=== PATIENT | male | born 1955 | race Caucasian/White ===

== ENCOUNTER 2023-03-26 12:54 | Outpatient (OUT) | payer MEDICARE, MEDICAID, SELFPAY ==
--- NOTE | 2023-03-26 13:14 | XR_ITS ---
[address] [address] Patient Name: EVELIN CAMACHO MRN: [id number] date: 1955 Sex: M Assigned Patient Location: LAB Current Patient Location: LAB Accession/Order Number: [id number] Exam Date: 03/26/2023 13:40 Report Date: 03/26/2023 22:18 At the request of: KEILY FREEMAN Procedure: XR knee RT 3V PROCEDURE: XR knee RT 3V COMPARISON: None. HISTORY: Primary Osteoarthritis Of Right Knee M17.11 FINDINGS: BONES:No fracture, acute abnormality, or significant arthropathy. Mild narrowing of the lateral joint space SOFT TISSUES:Negative. No visible soft tissue swelling. EFFUSION:None visible. OTHER: Scattered calcifications XR/XR knee RT 3V IMPRESSION: Mild narrowing of the lateral joint space Electronically authenticated by: ROSELIA CARRILLO Date: 03/26/2023 22:18
[2023-03-26 15:16] LABS: Estimated Average Glucose 143 mg/dL; Glycohemoglobin A1C 6.6 % (4.5-6.2)
== END 2023-03-26 12:55 | disposition home or self-care (01) ==
LOC: LAB 12:59
PROVIDERS: PCP Family Medicine; Visit Provider Family Medicine
DX: M17.11 Unilateral primary osteoarthritis, right knee (principal); E11.65 Type 2 diabetes mellitus with hyperglycemia; Z79.4 Long term (current) use of insulin
CPT/HCPCS: 36415; 73562; 83036

== ENCOUNTER 2023-07-16 11:32 | Inpatient (IN) | payer MEDICARE, MEDICAID, SELFPAY ==
[2023-07-16] VITALS (26 sets, daily range): BP systolic 134–177; BP diastolic 61–90; PULSE 68–122; RESP 20–30; TEMP 36.4–38.6; O2SAT 90–97; BMI 45.9; BMI 45.6
--- NOTE | 2023-07-16 11:55 | ECG_ITS ---
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
--- NOTE | 2023-07-16 11:56 | XR_ITS ---
The [address] [address] Patient Name: EVELIN CAMACHO MRN: [id number] date: 1955 Sex: M Assigned Patient Location: ER Current Patient Location: ER Accession/Order Number: [id number] Exam Date: 07/16/2023 12:21 Report Date: 07/16/2023 12:51 At the request of: KAYLIE THORNE Procedure: XR chest 1V EXAMINATION: XR chest 1V HISTORY: spb COMPARISON: No relevant comparison available. TECHNIQUE: AP portable erect FINDINGS: LUNGS: Low lung volumes. Bibasilar infiltrates with obscuration of the left hemidiaphragm. VASCULATURE: Mildly increased pulmonary vasculature. PLEURA: No pneumothorax, effusion, or pleural thickening. CARDIAC: No cardiomegaly or cardiac silhouette abnormality. MEDIASTINUM: No visible mass or adenopathy. BONES: No fracture or visible bone lesion. OTHER: Negative. XR/XR chest 1V IMPRESSION: Bibasilar infiltrates with pulmonary vascular congestion, consider pulmonary edema Electronically authenticated by: ROSELIA CARRILLO Date: 07/16/2023 12:51
[2023-07-16] MEDS: 0.9 % SODIUM CHLORIDE 1,000 ML 1000 ML IV (12:14)
[2023-07-16 12:23] LABS: SARS-CoV-2 Ag NEGATIVE (NEGATIVE)
[2023-07-16 12:26] LABS: Basophils Absolute Auto 0.1 10^3/uL (0.0-0.1); Basophils Percent Auto 0.6 % (0.2-2.0); Eosinophils Absolute Auto 0.2 10^3/uL (0.0-0.7); Eosinophils Percent Auto 1.8 % (0.9-7.0); Hematocrit 32.9 % (42.0-54.0); Hemoglobin 10.4 g/dL (14.0-18.0); Immature Granulocytes Abs Auto 0.07 10^3/uL (0.00-0.03); Immature Granulocytes Pct Auto 0.7 % (0.0-0.5); Lymphocytes Absolute Auto 1.2 10^3/uL (1.2-3.8); Lymphocytes Percent Auto 10.9 % (20.5-60.0); Mean Corpuscular HGB Conc 31.6 g/dL (29.9-35.2); Mean Corpuscular Hemoglobin 28.5 pg (25.9-34.0); Mean Corpuscular Volume 90.1 fL (80.0-94.0); Monocytes Absolute Auto 0.9 10^3/uL (0.3-0.8); Monocytes Percent Auto 8.7 % (1.7-12.0); Neutrophils Absolute Auto 8.1 10^3/uL (1.4-6.5); Neutrophils Percent Auto 77.3 % (43.0-75.0); Platelet Count 221 10^3/uL (150-450); Red Blood Count 3.65 10^6/uL (4.70-6.10); Red Cell Distribution Width 14.6 % (11.0-15.0); White Blood Count 10.5 10^3/uL (4.0-11.0)
[2023-07-16 12:28] LABS: Magnesium 1.2 mg/dL (1.8-2.4)
--- NOTE | 2023-07-16 12:36 | CT_ITS ---
[address] [address] Patient Name: EVELIN CAMACHO MRN: [id number] date: 1955 Sex: M Assigned Patient Location: ER Current Patient Location: ER Accession/Order Number: [id number] Exam Date: 07/16/2023 13:15 Report Date: 07/16/2023 14:02 At the request of: KAYLIE THORNE Procedure: CT abdomen pelvis wo con EXAMINATION: CT abdomen pelvis wo con HISTORY: 67 years old Male with left LQ abd pain. COMPARISON: TECHNIQUE: CT examination of the abdomen, and pelvis without the administration of intravenous contrast. Coronal and sagittal reformations were performed. Dose reduction techniques were achieved by using automated exposure control and/or adjustment of mA and/or kV according to patient size and/or use of iterative reconstruction technique. FINDINGS: Without the use of IV or oral contrast the study is limited by incomplete evaluation of the blood vessels, solid visceral organs and bowel. There is partial consolidation and groundglass attenuation of the right lung base. The liver appears normal. The gallbladder is surgically absent. The spleen, pancreas and bilateral adrenal glands are unremarkable. The kidneys are mildly atrophic. There is no hydronephrosis or renal calculus. Small umbilical hernia containing fat is identified. Bilateral inguinal hernias containing fat are noted. The colon is unremarkable. The stomach and small bowel are unremarkable. No pneumoperitoneum or ascites are identified. There is scattered calcified atherosclerotic disease of the aorta. No enlarged lymph nodes are seen. No free air or free fluid is seen. Osseous structures are intact. CT/CT abdomen pelvis wo con IMPRESSION: Bilateral inguinal hernias containing fat. Small umbilical hernia containing fat. No bowel obstruction or pneumoperitoneum. Normal-appearing appendix. Right basilar atelectasis and/or pneumonia. Mildly atrophic kidneys, bilaterally. Electronically authenticated by: MASON MASTERS Date: 07/16/2023 14:02
[2023-07-16 12:37] LABS: INR 0.97; Prothrombin Time 10.3 sec (9.0-11.6)
--- NOTE | 2023-07-16 12:37 | CT_ITS ---
[address] [address] Patient Name: EVELIN CAMACHO MRN: [id number] date: 1955 Sex: M Assigned Patient Location: ER Current Patient Location: ER Accession/Order Number: [id number] Exam Date: 07/16/2023 13:15 Report Date: 07/16/2023 14:13 At the request of: KAYLIE THORNE Procedure: CT chest wo con EXAM: CT chest wo con HISTORY: sob COMPARISON: 01/23/2022 TECHNIQUE: Axial CT imaging was performed through the chest without intravenous contrast. Multiplanar reformats were performed. Dose reduction techniques were achieved by using automated exposure control and/or adjustment of mA and/or kV according to patient size and/or use of iterative reconstruction technique. FINDINGS: Lungs: No pneumothorax. Patchy consolidations of right lower lobe, representing pneumonia/aspiration pneumonia. Airways: Normal. Mediastinum: No adenopathy. Aorta: No aneurysm. Cardiac: Normal size. No pericardial effusion. Pulmonary vasculature: Normal morphology. Bones: No acute bony abnormality. Axilla: No adenopathy. Thyroid gland: No abnormality demonstrated on provided imaging. Soft tissues: Unremarkable. Upper abdomen: Unremarkable. Other findings: None. CT/CT chest wo con IMPRESSION: Patchy consolidations of right lower lobe, representing pneumonia/aspiration pneumonia. Electronically authenticated by: MATIAS ESTEBAN Date: 07/16/2023 14:13
[2023-07-16 12:38] LABS: Alanine Aminotransferase 23 U/L (16-63); Albumin Globulin Ratio 0.3; Albumin Level 1.8 g/dL (3.4-5.0); Alkaline Phosphatase 165 U/L (46-116); Anion Gap 13.7; Aspartate Amino Transferase 40 U/L (15-37); BUN Creatinine Ratio 12.9; Bilirubin Total 0.7 mg/dL (0.2-1.0); Chloride 98 mmol/L (98-107); Estimated GFR (African America 49 (>=60); Estimated GFR (Non-African Ame 41 (>=60); Globulin 6.2 g/dL; Glucose 181 mg/dL (74-106); Sodium 135 mmol/L (136-145); Troponin I High Sensitivity 11.9 pg/mL (4.0-76.1)
[2023-07-16 12:40] LABS: Potassium 2.7 mmol/L (3.5-5.1)
[2023-07-16 13:25] LABS: Bilirubin Urine NEGATIVE (NEGATIVE); Blood Urine LARGE (NEGATIVE); Clarity Urine CLEAR (CLEAR); Color Urine YELLOW (YELLOW); Glucose Urine UA 100 mg/dL (NEGATIVE); Ketones Urine NEGATIVE (NEGATIVE); Leukocyte Esterase Urine NEGATIVE (NEGATIVE); Nitrite Urine NEGATIVE (NEGATIVE); Protein Urine 100 mg/dL (NEG/TRACE); Specific Gravity Urine 1.025 (1.005-1.025); Urine Microscopic Indicated YES
[2023-07-16] MEDS: POTASSIUM CHLORIDE IN WATER 10 MEQ/100 ML PIGGYBACK 100 MEQ IV (13:30)
--- NOTE | 2023-07-16 13:36 | ED_ITS ---
HPI - Weakness General Chief complaint: Weakness Stated complaint: GENERAL WEAKNESS Time Seen by Provider: 07/16/23 11:55 Source: patient Mode of arrival: ambulance Limitations: no limitations History of Present Illness HPI Narrative: Patient presented to the ER with 1 week history of nausea vomiting and diarrhea as well as cough productive of whitish sputum The patient coming to us today with an increase of shortness of breath and cough over the last few days , he also had fever and chills in addition to nausea and vomiting and not able to tolerate anything p.o. The patient also complaining of left lower quadrant pain he mentioned having history of diverticulosis, he has been having frequent bowel movements Related Data Home Medications Medication Instructions Recorded Confirmed atorvastatin 40 mg tablet 40 mg PO BEDTIME 07/16/23 07/16/23 cefdinir 300 mg capsule 300 mg PO BID 07/16/23 07/16/23 esomeprazole magnesium 40 mg 40 mg PO Q24H 07/16/23 07/16/23 capsule,delayed release gabapentin 100 mg capsule 100 mg PO BID 07/16/23 07/16/23 hydroxyzine HCl 25 mg tablet 25 mg PO QID PRN nausea and 07/16/23 07/16/23 vomiting insulin glargine 100 unit/mL (3 40 unit subcut DAILY 07/16/23 07/16/23 mL) subcutaneous pen (Lantus Solostar U-100 Insulin) isosorbide mononitrate 30 mg 30 mg PO DAILY 07/16/23 07/16/23 tablet,extended release 24 hr levothyroxine 200 mcg tablet 200 mcg PO DAILY 07/16/23 07/16/23 liothyronine 5 mcg tablet 5 mcg PO DAILY 07/16/23 07/16/23 lisinopril 40 mg tablet 40 mg PO DAILY 07/16/23 07/16/23 oxycodone-acetaminophen 5 mg-325 1 tab PO QID PRN pain 07/16/23 07/16/23 mg tablet ropinirole 0.5 mg tablet 0.5 mg PO BEDTIME 07/16/23 07/16/23 sertraline 100 mg tablet 100 mg PO DAILY 07/16/23 07/16/23 Allergies Allergy/AdvReac Type Severity Reaction Status Date / Time metformin AdvReac Severe Flatulence Verified 07/16/23 11:43 prochlorperazine AdvReac Severe Verified 07/16/23 11:43 [From Compazine] Review of Systems ROS Status of ROS 10 or more systems reviewed and unremark able except as noted in history and below PFSH PFS Social History Smoking status: Never smoker Exam Narrative Exam Narrative: Nurses notes and vital signs reviewed and patient is not hypoxic. General: Well-appearing and in no apparent distress. Skin: Warm, dry, no pallor noted. No rash. Head: Normocephalic, atraumatic. Neck: Supple, non-tender. Eye: Pupils are equal, round and EOMI. No scleral icterus. Ears, Nose, Mouth, and Throat: TM are clear, no nasal mucosal hypertrophy. Oral mucosa is moist, no posterior oropharynx erythema, uvula is mid-line Cardiovascular: Regular Rate and Rhythm without murmur, gallop or rub. Respiratory: Decreased air entry in the bases as well as rhonchi in the upper lung carrion Lungs are clear to auscultation, no wheezing, rales or rhonchi Chest Wall: no tenderness Back: No midline thoracic or lumbar vertebral tenderness. No CVA tenderness Musculoskeletal: normal ROM, no calf or popliteal tenderness, no lower extremity edema/swelling GI: Abdomen is soft, non-distended. Normal bowel sounds. No masses appreciated. Left lower quadrant tenderness on examination although it was on superficial examination ,no rebound, guarding, or rigidity noted. Neurological: A&O x4. No cranial nerve dysfunction observed. No truncal ataxia. Moves all extremities. Sensation intact. Psychiatric: Cooperative and interactive. Normal mood and affect. Constitutional Vital Signs, click to edit/add: Last Vital Signs Temp 100.4 F 07/16/23 14:43 Pulse 81 07/16/23 12:30 Resp 26 H 07/16/23 12:30 BP 135/72 07/16/23 11:39 Pulse Ox 97 07/16/23 13:00 O2 Del Method Nasal Cannula 07/16/23 12:44 O2 Flow Rate 2 07/16/23 12:44 Course Vital Signs Vital signs: Vital Signs Temperature 101.4 F H 07/16/23 11:39 Pulse Rate 74 07/16/23 11:39 Respiratory Rate 24 07/16/23 11:39 Blood Pressure 135/72 07/16/23 11:39 Pulse Oximetry 95 07/16/23 11:39 Oxygen Delivery Method Room Air 07/16/23 11:39 Temperature 100.4 F 07/16/23 14:43 Pulse Rate 81 07/16/23 12:30 Respiratory Rate 26 H 07/16/23 12:30 Blood Pressure 135/72 07/16/23 11:39 Pulse Oximetry 97 07/16/23 13:00 Oxygen Delivery Method Nasal Cannula 07/16/23 12:44 Oxygen Delivery Flow Rate 2 07/16/23 12:44 MDM - Weakness MDM Narrative Medical decision making narrative: The patient EKG shows sinus arrhythmia with multiple PVCs although the patient does have history of A-fib , but I can recognize P waves in multiple beats The patient CBC shows no acute significant pathology but his potassium is 2.7 and magnesium is 1.2 the patient was started on IV potassium and magnesium The patient also provided with p.o. potassium after making sure that the CAT scan of the abdomen showed no acute significant pathology CAT scan of the chest confirmed the diagnosis of the pneumonia and the patient was started on ceftriaxone and azithromycin Please consider any QT prolonging effect of azithromycin especially that the patient taking hydroxyzine with it The patient pulse ox only drops when the patient coughs to 89% to 88% and that why he is on 2 L nasal cannula saturating right now 97% Right now the patient will be admitted for further management of his gastroenteritis as well as pneumonia The patient case was discussed with Dr. Chicas and he agrees on the above mentioned plan Lab Data Labs: Lab Results 07/16/23 07/16/23 07/16/23 Range/Units 11:50 12:13 13:10 WBC 10.5 (4.0-11.0) 10^3/uL RBC 3.65 L (4.70-6.10) 10^6/uL Hgb 10.4 L (14.0-18.0) g/dL Hct 32.9 L (42.0-54.0) % MCV 90.1 (80.0-94.0) fL MCH 28.5 (25.9-34.0) pg MCHC 31.6 (29.9-35.2) g/dL RDW 14.6 (11.0-15.0) % Plt Count 221 (150-450) 10^3/uL MPV 11.0 (9.5-13.5) fL Neut % (Auto) 77.3 H (43.0-75.0) % Lymph % (Auto) 10.9 L (20.5-60.0) % [place] % (Auto) 8.7 (1.7-12.0) % Eos % (Auto) 1.8 (0.9-7.0) % Baso % (Auto) 0.6 (0.2-2.0) % Neut # (Auto) 8.1 H (1.4-6.5) 10^3/uL Lymph # (Auto) 1.2 (1.2-3.8) 10^3/uL [place] # (Auto) 0.9 H (0.3-0.8) 10^3/uL Eos # (Auto) 0.2 (0.0-0.7) 10^3/uL Baso # (Auto) 0.1 (0.0-0.1) 10^3/uL Abs Immat Gran (auto) 0.07 H (0.00-0.03) 10^3/uL Imm/Tot Granulo (auto) 0.7 H (0.0-0.5) % PT 10.3 (9.0-11.6) sec INR 0.97 Sodium 135 L (136-145) mmol/L Potassium 2.7 L* (3.5-5.1) mmol/L Chloride 98 (98-107) mmol/L Carbon Dioxide 26.0 (21.0-32.0) mmol/L Anion Gap 13.7 BUN 22.0 H (7.0-18.0) mg/dL Creatinine 1.70 H (0.70-1.30) mg/dL Est GFR ( Amer) 49 L (>=60) Est GFR (Non-Af Amer) 41 L (>=60) BUN/Creatinine Ratio 12.9 Glucose 181 H (74-106) mg/dL Lactate 2.0 (0.4-2.0) mmol/L Calcium 8.0 L (8.5-10.1) mg/dL Magnesium 1.2 L (1.8-2.4) mg/dL Total Bilirubin 0.7 (0.2-1.0) mg/dL AST 40 H (15-37) U/L ALT 23 (16-63) U/L Alkaline Phosphatase 165 H (46-116) U/L Troponin I High Sens 11.9 (4.0-76.1) pg/mL Total Protein 8.0 (6.4-8.2) g/dL Albumin 1.8 L (3.4-5.0) g/dL Globulin 6.2 g/dL Albumin/Globulin Ratio 0.3 Urine Color Yellow (YELLOW) Urine Clarity Clear (CLEAR) Urine pH 6.0 (5.0-9.0) Ur Specific [place] 1.025 (1.005-1.025) Urine Protein 100 A (NEG/TRACE) mg/dL Urine Glucose (UA) 100 A (NEGATIVE) mg/dL Urine Ketones Negative (NEGATIVE) mg/dL Urine Occult Blood Large A (NEGATIVE) Urine Nitrite Negative (NEGATIVE) Urine Bilirubin Negative (NEGATIVE) Urine Urobilinogen 1.0 (0.2-1.0) EU/dL Ur Leukocyte Esterase Negative (NEGATIVE) Urine RBC 20-50 A (0-2) #/HPF Urine WBC 2-5 A (NONE SEEN) #/HPF Ur Squamous Epith Cells Rare (NONE/RARE) #/LPF Urine Crystals Seen A (None Seen) #/HPF Amorphous Sediment Rare Urine Bacteria Trace A (NONE SEEN) #/HPF Urine Casts Seen A (NONE SEEN) #/LPF Fine Granular Casts Rare Urine Mucus None seen (NONE SEEN) Ur Culture Indicated? No SARS-CoV-2 (PCR) Negative (NEGATIVE) Discharge Plan Discharge Chief Complaint: Weakness Clinical Impression: Acute kidney injury, Gastroenteritis, Acute hypokalemia, Hypomagnesemia Pneumonia Qualifiers: Pneumonia type: due to unspecified organism Laterality: right Lung location: lower lobe of lung Qualified Code(s): J18.9 - Pneumonia, unspecified organism Patient Disposition: Admitted As Inpatient Time of Disposition Decision: 14:33 Condition: Fair
[2023-07-16 13:38] LABS: Amorphous Sediment Urine RARE; Bacteria Urine TRACE #/HPF (NONE SEEN); Cast Seen? SEEN #/LPF (NONE SEEN); Crystals Seen? Seen #/HPF (None Seen); Mucus Urine NONE SEEN (NONE SEEN); RBC Urine 20-50 #/HPF (0-2); Squamous Epithelial Cell Urine RARE #/LPF (NONE/RARE)
[2023-07-16 13:39] LABS: Fine Granular Casts Urine RARE; Urine Culture Indicated NO
[2023-07-16] MEDS: MAGNESIUM SULFATE IN WATER 2 GM/50 ML PREMIX IV ×2 (14:26→18:29)
[2023-07-16] MEDS: CEFTRIAXONE 1,000 MG in 0.9 % SODIUM CHLORIDE 50 ML 100 MG IV (14:56)
[2023-07-16 15:07] LABS: Lactate/Lactic Acid 1.3 mmol/L (0.4-2.0)
[2023-07-16 15:09] LABS: SARS-CoV-2 NAA NOT DETECTED (NOT DETECTE)
[2023-07-16] MEDS: AZITHROMYCIN 500 MG in 0.9 % SODIUM CHLORIDE 250 ML 250 MG IV (15:30)
[2023-07-16 16:19] LABS: Glucometer 128 mg/dL (74-106)
[2023-07-16 16:27] LABS: Adenovirus NOT DETECTED (NOT DETECTE); Bordetella parapertussis NOT DETECTED (NOT DETECTE); Coronavirus 229E NOT DETECTED (NOT DETECTE); Coronavirus HKU1 NOT DETECTED (NOT DETECTE); Coronavirus NL63 NOT DETECTED (NOT DETECTE); Coronavirus OC43 NOT DETECTED (NOT DETECTE); Human Metapneumovirus NOT DETECTED (NOT DETECTE); Human Rhinovirus/Enterovirus NOT DETECTED (NOT DETECTE); Influenza A NOT DETECTED (NOT DETECTE); Influenza B NOT DETECTED (NOT DETECTE); Mycoplasma pneumoniae NOT DETECTED (NOT DETECTE); Parainfluenza Virus 1 NOT DETECTED (NOT DETECTE); Parainfluenza Virus 2 NOT DETECTED (NOT DETECTE); Parainfluenza Virus 3 NOT DETECTED (NOT DETECTE); Parainfluenza Virus 4 NOT DETECTED (NOT DETECTE); Respiratory Syncytial Virus NOT DETECTED (NOT DETECTE); SARS-CoV-2 NOT DETECTED (NOT DETECTE)
--- NOTE | 2023-07-16 16:31 | P.HP_ITS ---
H&P: HPI History of Present Illness Chief complaint: GENERAL WEAKNESS, PNEUMONIA,HYPOKALEMIA Narrative: 07/16/23 3485 This is a 67-year-old male patient with a past medical history as outlined below including DM 2, morbid obesity, HTN, HL P, fibromyalgia, and depression; who presented to the ED complaining approximately 10 days of URI symptoms with severe cough, shortness of breath, body aches, and diarrhea starting on . He reports severe shortness of breath and near syncope with coughing episodes that then led to dry heaves but no actual nausea or emesis. He reports the diarrhea continued intermittently for the last 10 days and was very watery and at times uncontrolled and he was incontinent. He reports subjective fevers and chills over the last several days. He denies abdominal pain, chest pain, significant headache, dizziness, or nausea. Work-up in the ED revealed fever (101.4), no leukocytosis but significant electrolyte derangements (K+ 2.7, mag 1.2), and mild CURLY on chronic CKD3a. A COVID swab was negative. Chest x-ray was concerning for bilateral lobe infiltrate and possible vascular congestion. A follow-up CT of the chest revealed right lower lobe patchy consolidations consistent with pneumonia or aspiration pneumonia. CT of the abdomen was unremarkable. He is being admitted to the hospitalist service for left lower lobe pneumonia, acute gastroenteritis, electrolyte derangements, acute respiratory failure. At the time of my exam the patient is resting in bed. He is not in significant respiratory distress and can speak in complete sentences. His left eye is injected and painful with some drainage noted. He has an infrequent nonproductive cough during my exam. He does note episodic prolonged coughing spells that produce severe shortness of breath and near syncope. Review of Systems ROS Status of ROS 10 or more systems reviewed and unremark able except as noted in history and below [facility] Medical History (Updated 07/16/23 @ 17:03 by Maria Victoria Mobley NP) GERD (gastroesophageal reflux disease) ?K21.9 - Gastro-esophageal reflux disease without esophagitis (ICD-10) UTI (urinary tract infection) ?N39.0 - Urinary tract infection, site not specified (ICD-10) Sepsis ?A41.9 - Sepsis, unspecified organism (ICD-10) Fibromyalgia ?M79.7 - Fibromyalgia (ICD-10) Hyperlipidemia ?E78.5 - Hyperlipidemia, unspecified (ICD-10) Hypothyroid ?E03.9 - Hypothyroidism, unspecified (ICD-10) Depression ?F32.A - Depression, unspecified (ICD-10) Anxiety ?F41.9 - Anxiety disorder, unspecified (ICD-10) Hypertension ?I10 - Essential (primary) hypertension (ICD-10) Diabetes ?E11.9 - Type 2 diabetes mellitus without complications (ICD-10) Surgical History (Updated 07/16/23 @ 16:09 by María Elena Neal) H/O right heart catheterization ?Z98.890 - Other specified postprocedural states (ICD-10) History of lithotripsy ?Z98.890 - Other specified postprocedural states (ICD-10) H/O colonoscopy ?Z98.890 - Other specified postprocedural states (ICD-10) Family History (Updated 07/16/23 @ 16:10 by María Elena Neal) Mother Family history of cancer Social History (Updated 07/16/23 @ 16:11 by María Elena Neal) Within the past year, how often did you have a drink containing alcohol: never Within the past year, how many standard drinks containing alcohol did you have on a typical day: 1 or 2 Within the past year, how often did you have six or more drinks on one occasion: never Total score: 0 Score interpretation: A score less than 4 is consistent with normal alcohol consumption. Smoking status: Never smoker Non-prescribed substance use: denies use Previous occupational history: disability Highest level of school completed/degree received: high school graduate Are you now , , , , never or living with a partner: In a typical week, how many times do you talk on the telephone with family, friends, or neighbors: twice per week How often do you get together with friends or relatives: twice per week How often do you attend protestant or rastafari services: 4 or more times per year Do you belong to any clubs or organizations such as protestant groups unions, fraternal or athletic groups, or school groups: no Total score: 2 Score interpretation: A score of greater than or equal to 2 indicates the lowest level of social isolation. Little interest or pleasure in doing things: not at all Feeling down, depressed, or hopeless: several days Feel stressed/tense/nervous/anxious/difficulty sleeping: not at all Gender Identity: male Meds Home Medications and Allergies Home Medications Medication Instructions Recorded Confirmed Type atorvastatin 40 mg tablet 40 mg PO BEDTIME 07/16/23 07/16/23 History cefdinir 300 mg capsule 300 mg PO BID 07/16/23 07/16/23 History esomeprazole magnesium 40 mg 40 mg PO Q24H 07/16/23 07/16/23 History capsule,delayed release gabapentin 100 mg capsule 100 mg PO BID 07/16/23 07/16/23 History hydroxyzine HCl 25 mg tablet 25 mg PO QID PRN nausea and 07/16/23 07/16/23 History vomiting insulin glargine 100 unit/mL (3 40 unit subcut DAILY 07/16/23 07/16/23 History mL) subcutaneous pen (Lantus Solostar U-100 Insulin) isosorbide mononitrate 30 mg 30 mg PO DAILY 07/16/23 07/16/23 History tablet,extended release 24 hr levothyroxine 200 mcg tablet 200 mcg PO DAILY 07/16/23 07/16/23 History liothyronine 5 mcg tablet 5 mcg PO DAILY 07/16/23 07/16/23 History lisinopril 40 mg tablet 40 mg PO DAILY 07/16/23 07/16/23 History oxycodone-acetaminophen 5 mg-325 1 tab PO QID PRN pain 07/16/23 07/16/23 History mg tablet ropinirole 0.5 mg tablet 0.5 mg PO BEDTIME 07/16/23 07/16/23 History sertraline 100 mg tablet 100 mg PO DAILY 07/16/23 07/16/23 History Allergies Allergy/AdvReac Type Severity Reaction Status Date / Time metformin AdvReac Severe Flatulence Verified 07/16/23 11:43 prochlorperazine AdvReac Severe Verified 07/16/23 11:43 [From Compazine] Exam Constitutional Vital Signs, click to edit/add: Last Vital Signs Temp 98.7 F 07/16/23 16:13 Pulse 68 07/16/23 16:13 Resp 20 07/16/23 16:13 BP 177/90 H 07/16/23 16:13 Pulse Ox 95 07/16/23 16:13 O2 Del Method Nasal Cannula 07/16/23 16:13 O2 Flow Rate 2 12/06/23 16:13 Common normals: no apparent distress, oriented x3, alert and well nourished General appearance: cooperative Orientation/consciousness: Yes awake HENCO Common normals: normocephalic, head/scalp atraumatic, hearing grossly normal bilaterally, external nose normal and moist oral mucous membranes Eye Common normals: PERRL, EOMs intact bilaterally and no scleral icterus Alignment: alignment normal Eyelid: eyelids normal Conjunctiva: conjunctiva abnormal left (injected, mild discharge, painful) Neck & C-Spine Common normals: full ROM, supple and no JVD Chest Common normals: inspection of chest normal Chest: symmetrical chest wall rise Respiratory Common normals: normal respiratory effort, no retractions and no use of accessory muscles Effort & inspection: able to speak in complete sentences Auscultation: rhonchi (RLL faint) and wheezes (LLL faint) Cardio Common normals: no JVD, regular rate, regular rhythm, S1 normal heart sound, S2 normal heart sound, no gallops, no clicks, no murmurs, no rub and peripheral pulses 2+ throughout GI Common normals: Normal to inspection, nondistended, normoactive bowel sounds present, soft to palpation, no hepatosplenomegaly, no masses and no bruits Palpation: tender (Mild diffuse abd wall pain from coughing) Bladder/kidney exam: bladder normal to palpation Back & Pelvis Common normals: thoracic and lumbar spine normal to inspection Extremity Common normals: normal capillary refill and no pedal edema General: normal exam except as noted; no clubbing and no cyanosis Neuro Naldo Coma Scale: GCS not evaluated Common normals: CN's II-XII intact bilaterally, moves all extremities and no focal motor deficits Speech: speech normal Sensory exam: other (chronic bilat feet paresthesias) Psych Common normals: mental status grossly normal, thought process normal, affect normal and activity/motor behavior normal Results Labs Labs: Short CBC 07/16/23 Range/Units 12:13 WBC 10.5 (4.0-11.0) 10^3/uL Hgb 10.4 L (14.0-18.0) g/dL Hct 32.9 L (42.0-54.0) % Plt Count 221 (150-450) 10^3/uL BMP 07/16/23 12:13 Sodium 135 L Potassium 2.7 L* Chloride 98 Carbon Dioxide 26.0 BUN 22.0 H Creatinine 1.70 H Glucose 181 H Calcium 8.0 L Liver Function 07/16/23 Range/Units 12:13 Total Bilirubin 0.7 (0.2-1.0) mg/dL AST 40 H (15-37) U/L ALT 23 (16-63) U/L Alkaline Phosphatase 165 H (46-116) U/L Albumin 1.8 L (3.4-5.0) g/dL Urine 07/16/23 Range/Units 13:10 Urine Color Yellow (YELLOW) Urine Clarity Clear (CLEAR) Urine pH 6.0 (5.0-9.0) Ur Specific [place] 1.025 (1.005-1.025) Urine Protein 100 A (NEG/TRACE) mg/dL Urine Glucose (UA) 100 A (NEGATIVE) mg/dL Pulse Oximetry Attestation: I have reviewed the pertinent pulse oximetry results. ECG Attestation: ?I have reviewed the pertinent ECG results. Interpretation: Sinus tachycardia With frequent supraventricular premature complexes With occasional ventricular premature complexes Moderate ST depression Abnormal ECG No previous ECG available for comparison Imaging Chest x-ray: Attestation: I have reviewed the pertinent imaging results. Radiologist's impression: IMPRESSION: Bibasilar infiltrates with pulmonary vascular congestion, consider pulmonary edema CT scan - abdomen: Attestation: I have reviewed the pertinent imaging results. Radiologist's impression: IMPRESSION: Bilateral inguinal hernias containing fat. Small umbilical hernia containing fat. No bowel obstruction or pneumoperitoneum. Normal-appearing appendix. Right basilar atelectasis and/or pneumonia. Mildly atrophic kidneys, bilaterally. CT scan - chest: Attestation: I have reviewed the pertinent imaging results. Radiologist's impression: IMPRESSION: Patchy consolidations of right lower lobe, representing pneumonia/aspiration pneumonia. Assessment and Plan Assessment and Plan (1) Pneumonia: Assessment and Plan: ACUTE * Adm inpatient * Cough/SOB x 10 days, febrile (101.4), LLL consolidation on CT imaging * Suspect viral URI w/ secondary bacterial LLL consolidation * COVID swab neg * check full resp panel * add procalcitonin * IVPB Rocephin and azithromycin * Duoneb TID plus PRN q4h * Scheduled tessalon perles and guaifenisen * O2 to keep sats above 90% * LR at 125/hr * CBC, CMP daily Qualifiers: Laterality: right Lung location: lower lobe of lung Pneumonia type: due to unspecified organism Qualified Code(s): J18.9 - Pneumonia, unspecified organism (2) Acute respiratory failure: Assessment and Plan: ACUTE * Sats drop to 88% w/ coughing * Pt reports near syncope w/ coughing * O2 to keep sats above 90% Qualifiers: Respiratory failure complication: hypoxia Qualified Code(s): J96.01 - Acute respiratory failure with hypoxia (3) Gastroenteritis: Assessment and Plan: ACUTE * Suspected viral illness w/ URI, cough and diarrhea. * No N/V - just gagging, dry heaves with prolonged coughing * Pt reports intermittent watery diarrhea x 10 days * check C-diff * start floranex * Consider loperamide if c-diff is negative * Zofran if nausea occurs (4) Acute hypokalemia: Assessment and Plan: ACUTE * K+ 2.7 in ED * Suspect 2/2 GI losses w/ persistent diarrhea and poor po intake * KCL 50 meq total given in ED * Give additional 40 meq IVPB tonight * Tele monitoring - no concerning EKG changes * Daily CMP to monitor (5) Hypomagnesemia: Assessment and Plan: ACUTE * Mg 1.2 in ED * Suspect 2/2 GI losses w/ persistent diarrhea and poor po intake * Mag sulfate 2gm given in ED * Give addt'l 2gm mag sulfate now * Repeat Mag level in AM (6) Acute kidney injury: Assessment and Plan: ACUTE * Mild * B.L. renal fx: CR 1.29 to 1.59, eGFR 44-56. CKD3a * 2/2 dehydration * IVF as above * Hold renal toxic medications - lisinopril * CMP daily (7) Acute conjunctivitis, left eye: Assessment and Plan: ACUTE * Vigamox gtts TID x 7 days Qualifiers: Acute conjunctivitis type: unspecified Qualified Code(s): H10.32 - Unspecified acute conjunctivitis, left eye (8) Fibromyalgia: Assessment and Plan: CHRONIC * Continue home SSRI, gabapentin, requip (9) Hyperlipidemia: Assessment and Plan: CHRONIC * Continue home statin (10) Hypothyroid: Assessment and Plan: CHRONIC * Continue home levothyroxine, liothyronine * Check TSH in AM for therapeutic monitoring (11) Depression: Assessment and Plan: CHRONIC * Continue home sertraline (12) Hypertension: Assessment and Plan: CHRONIC * Continue home imdur * Hold home lisinopril for now d/t CURLY * PRN IVP Hydralazine (13) Diabetes: Assessment and Plan: CHRONIC * Continue home lantus daily * Med dose SSI for glucose correction * ACHS glucometer checks * Med CC diet (14) GERD (gastroesophageal reflux disease): Assessment and Plan: CHRONIC * Continue home PPI Plan Lovenox for DVT prophylaxis
[2023-07-16] MEDS: POTASSIUM CHLORIDE 10 MEQ ER TABLET 40 MEQ PO (18:28)
[2023-07-16] MEDS: LACTATED RINGER'S SOLUTION 1,000 ML 125 ML IV (18:29)
[2023-07-16] MEDS: IPRATROPIUM/ALBUTEROL SULFATE 3 ML AMPUL.NEB IH (20:14)
[2023-07-16 20:31] LABS: Glucometer 187 mg/dL (74-106)
[2023-07-16] MEDS: POTASSIUM CHLORIDE 40 MEQ in 0.9 % SODIUM CHLORIDE 250 ML 67.5 MEQ IV (20:34)
[2023-07-16] MEDS: ENOXAPARIN SODIUM 30 MG/0.3 ML SYRINGE SUBQ (21:16)
[2023-07-16] MEDS: L. ACIDOPHILUS/L.BULGARICUS 1 PACKET GRAN.PACK PO (21:16)
[2023-07-16] MEDS: ATORVASTATIN CALCIUM 40 MG TABLET PO (21:16)
[2023-07-16] MEDS: GABAPENTIN 100 MG CAPSULE PO (21:16)
[2023-07-16] MEDS: GUAIFENESIN 600 MG TAB.ER.12H PO (21:16)
[2023-07-16] MEDS: ROPINIROLE HCL 0.25 MG TABLET 0.5 MG PO (21:16)
[2023-07-16] MEDS: BENZONATATE 100 MG CAPSULE 200 MG PO (21:16)
[2023-07-16] MEDS: INSULIN ASPART 300 UNIT/3 ML PEN SUBQ (21:17)
[2023-07-16] MEDS: MOXIFLOXACIN HCL 0.5% OP 60 DROP/3 ML BOTTLE OP (21:17)
[2023-07-17] VITALS (19 sets, daily range): BP systolic 141–158; BP diastolic 81–92; PULSE 59–93; RESP 18–24; TEMP 36.5–36.7; O2SAT 92–95
[2023-07-17 04:29] LABS: Basophils Absolute Auto 0.1 10^3/uL (0.0-0.1); Basophils Percent Auto 0.7 % (0.2-2.0); Eosinophils Absolute Auto 0.1 10^3/uL (0.0-0.7); Eosinophils Percent Auto 1.1 % (0.9-7.0); Hematocrit 30.6 % (42.0-54.0); Hemoglobin 9.8 g/dL (14.0-18.0); Immature Granulocytes Abs Auto 0.13 10^3/uL (0.00-0.03); Immature Granulocytes Pct Auto 1.5 % (0.0-0.5); Lymphocytes Absolute Auto 1.3 10^3/uL (1.2-3.8); Lymphocytes Percent Auto 14.6 % (20.5-60.0); Mean Corpuscular Hemoglobin 28.7 pg (25.9-34.0); Mean Corpuscular Volume 89.7 fL (80.0-94.0); Mean Platelet Volume 10.3 fL (9.5-13.5); Monocytes Absolute Auto 0.7 10^3/uL (0.3-0.8); Monocytes Percent Auto 8.4 % (1.7-12.0); Neutrophils Absolute Auto 6.5 10^3/uL (1.4-6.5); Neutrophils Percent Auto 73.7 % (43.0-75.0); Platelet Count 247 10^3/uL (150-450); Red Blood Count 3.41 10^6/uL (4.70-6.10); Red Cell Distribution Width 14.8 % (11.0-15.0); White Blood Count 8.8 10^3/uL (4.0-11.0)
[2023-07-17 04:36] LABS: Magnesium 1.8 mg/dL (1.8-2.4)
[2023-07-17 04:51] LABS: Alanine Aminotransferase 21 U/L (16-63); Albumin Globulin Ratio 0.3; Albumin Level 1.7 g/dL (3.4-5.0); Alkaline Phosphatase 179 U/L (46-116); Anion Gap 12.4; Aspartate Amino Transferase 31 U/L (15-37); Bilirubin Total 0.5 mg/dL (0.2-1.0); Calcium 7.8 mg/dL (8.5-10.1); Carbon Dioxide 26.6 mmol/L (21.0-32.0); Chloride 101 mmol/L (98-107); Estimated GFR (African America >60 (>=60); Estimated GFR (Non-African Ame 52 (>=60); Globulin 5.8 g/dL; Glucose 178 mg/dL (74-106); Sodium 137 mmol/L (136-145); Total Protein 7.5 g/dL (6.4-8.2)
[2023-07-17 05:00] LABS: Thyroid Stimulating Hormone 7.923 uIU/mL (0.358-3.740)
[2023-07-17] MEDS: MOXIFLOXACIN HCL 0.5% OP 60 DROP/3 ML BOTTLE OP ×3 (05:44→21:33)
[2023-07-17] MEDS: BENZONATATE 100 MG CAPSULE 200 MG PO ×3 (05:44→21:33)
[2023-07-17] MEDS: LACTATED RINGER'S SOLUTION 1,000 ML 125 ML IV ×2 (05:45→17:22)
[2023-07-17] MEDS: LEVOTHYROXINE SODIUM 100 MCG TABLET 200 MCG PO (05:45)
[2023-07-17 07:55] LABS: Glucometer 139 mg/dL (74-106)
[2023-07-17] MEDS: SERTRALINE HCL 100 MG TABLET PO (08:19)
[2023-07-17] MEDS: L. ACIDOPHILUS/L.BULGARICUS 1 PACKET GRAN.PACK PO ×2 (08:19→21:34)
[2023-07-17] MEDS: ISOSORBIDE MONONITRATE 30 MG TAB.ER.24H PO (08:19)
[2023-07-17] MEDS: GUAIFENESIN 600 MG TAB.ER.12H PO ×2 (08:19→21:34)
[2023-07-17] MEDS: LIOTHYRONINE SODIUM 5 MCG TABLET PO (08:20)
[2023-07-17] MEDS: OMEPRAZOLE 40 MG CAPSULE.DR PO (08:20)
[2023-07-17] MEDS: GABAPENTIN 100 MG CAPSULE PO ×2 (08:20→21:34)
[2023-07-17] MEDS: INSULIN DETEMIR 300 UNIT/3 ML INSULN.PEN 30 UNIT SUBQ (08:23)
--- NOTE | 2023-07-17 09:28 | CM.NOTE ---
Rounding with Dr. Chicas and patient voiced he feels awful and has since Thanksgiving. Discussed ordering PT and OT. Continue to follow for discharge needs.
[2023-07-17] MEDS: POTASSIUM CHLORIDE 40 MEQ in 0.9 % SODIUM CHLORIDE 250 ML 67.5 MEQ IV (09:37)
[2023-07-17] MEDS: POTASSIUM CHLORIDE 10 MEQ ER TABLET 40 MEQ PO (09:37)
[2023-07-17] MEDS: IPRATROPIUM/ALBUTEROL SULFATE 3 ML AMPUL.NEB IH ×3 (10:30→20:20)
--- NOTE | 2023-07-17 10:30 | P.PN_ITS ---
<Statement entered by Shaikh Juan Francisco MD - 07/22/23 14:14> This documentation has been reviewed and approved. Seen and examined. Agree with clinical documentation Assessment Pneumonia Weakness CURLY C/w current treatment. Progress Note: Subjective Subjective Interval history: 07/17/23 0922 The patient is lying in bed resting at the time of my exam. His upper respiratory congestion is audibly improved, but the patient continues to complain of significant cough, fatigue and malaise. Nursing was able to wean him off of O2 supplementation overnight and he remains on room air this morning. Procalcitonin was significantly elevated at 2.3 yesterday indicating likely bacterial pneumonia process. We have ordered a sputum sample. For now we will continue with broad-spectrum Rocephin and azithromycin pending sputum culture results for de-escalation. He is mildly hypokalemic this morning which will be repleted. His magnesium level is within low normal limits today but we will start twice daily mag oxide supplementation to keep his magnesium level topped up. The patient shows slight improvement today but will require at least another midnight possibly two midnights before discharge will be considered. Exam Constitutional Vital Signs, click to edit/add: Last Vital Signs Temp 97.7 F 07/17/23 05:52 Pulse 78 07/17/23 10:07 Resp 20 07/17/23 05:52 BP 141/84 07/17/23 05:52 Pulse Ox 94 L 07/17/23 05:52 O2 Del Method Room Air 07/17/23 05:52 O2 Flow Rate 2 07/16/23 16:13 Common normals: no apparent distress, oriented x3 and alert General appearance: cooperative Orientation/consciousness: Yes awake HENRI Common normals: normocephalic, head/scalp atraumatic and hearing grossly normal bilaterally Eye Common normals: PERRL, EOMs intact bilaterally and no scleral icterus General eye: normal appearance of both eyes Chest Common normals: inspection of chest normal Chest: symmetrical chest wall rise Respiratory Common normals: normal respiratory effort and no use of accessory muscles Effort & inspection: able to speak in complete sentences Auscultation: wheezes (Faint insp wheeze scattered throughout) expiratory wheezes (with coughing) Cardio Common normals: regular rate, regular rhythm, S1 normal heart sound, S2 normal heart sound, no murmurs and peripheral pulses 2+ throughout GI Common normals: Normal to inspection, nondistended, normoactive bowel sounds present, soft to palpation, non-tender and no hepatosplenomegaly Bladder/kidney exam: bladder normal to palpation Extremity Common normals: normal to inspection and no calf tenderness General: no clubbing, no cyanosis and no edema Neuro Common normals: CN's II-XII intact bilaterally, moves all extremities, no focal motor deficits and no sensory deficits noted Psych Common normals: mental status grossly normal Progress Note: Objective Labs Labs: Short CBC 07/16/23 07/17/23 Range/Units 12:13 03:49 WBC 10.5 8.8 (4.0-11.0) 10^3/uL Hgb 10.4 L 9.8 L (14.0-18.0) g/dL Hct 32.9 L 30.6 L (42.0-54.0) % Plt Count 221 247 (150-450) 10^3/uL BMP 07/16/23 07/17/23 12:13 03:49 Sodium 135 L 137 Potassium 2.7 L* 3.0 L Chloride 98 101 Carbon Dioxide 26.0 26.6 BUN 22.0 H 18.0 Creatinine 1.70 H 1.38 H Glucose 181 H 178 H Calcium 8.0 L 7.8 L Liver Function 07/16/23 07/17/23 Range/Units 12:13 03:49 Total Bilirubin 0.7 0.5 (0.2-1.0) mg/dL AST 40 H 31 (15-37) U/L ALT 23 21 (16-63) U/L Alkaline Phosphatase 165 H 179 H (46-116) U/L Albumin 1.8 L 1.7 L (3.4-5.0) g/dL Urine 07/16/23 Range/Units 13:10 Urine Color Yellow (YELLOW) Urine Clarity Clear (CLEAR) Urine pH 6.0 (5.0-9.0) Ur Specific [place] 1.025 (1.005-1.025) Urine Protein 100 A (NEG/TRACE) mg/dL Urine Glucose (UA) 100 A (NEGATIVE) mg/dL Laboratory Tests 07/16/23 07/17/23 12:13 03:49 Procalcitonin 2.30 H TSH 7.923 H Progress Note: A&P Assessment and Plan (1) Pneumonia: Assessment and Plan: ACUTE * Mild improvement * Off O2 supplementation * Afebrile x 12 hrs * Persistent cough, malaise, fatigue * Suspect viral URI w/ secondary bacterial LLL consolidation * COVID swab neg * check full resp panel neg * Procalcitonin - 2.3, consistent w/ bacterial PNA-at risk for sepsis * Continue IVPB Rocephin and azithromycin * Continue Duoneb TID plus PRN q4h * Continue scheduled tessalon perles and guaifenisen * O2 to keep sats above 90% - currently stable on RA * Continue LR at 125/hr * CBC, CMP daily Qualifiers: Laterality: right Lung location: lower lobe of lung Pneumonia type: due to unspecified organism Qualified Code(s): J18.9 - Pneumonia, unspecified organism (2) Acute respiratory failure: Assessment and Plan: ACUTE * Resolving * Weaned off O2 supplementation last night Qualifiers: Respiratory failure complication: hypoxia Qualified Code(s): J96.01 - Acute respiratory failure with hypoxia (3) Gastroenteritis: Assessment and Plan: ACUTE * Suspected viral illness w/ URI, cough and diarrhea. * No N/V - just gagging, dry heaves with prolonged coughing * Pt reports intermittent watery diarrhea x 10 days * No diarrhea reported overnight * check C-diff - still pending watery stool * Continue floranex * Consider loperamide if c-diff is negative * Zofran if nausea occurs (4) Acute hypokalemia: Assessment and Plan: ACUTE * K+ 3.0 today after aggressive repletion yesterday afternoon * Suspect 2/2 GI losses w/ persistent diarrhea and poor po intake * KCL 40 meq IVPB plus 40 meq PO today * Tele monitoring - no concerning EKG changes * Daily CMP to monitor (5) Hypomagnesemia: Assessment and Plan: ACUTE * Resolving * Mg 1.8 in ED * Suspect 2/2 GI losses w/ persistent diarrhea and poor po intake * Mag oxide BID * Repeat Mag level in AM (6) Acute kidney injury: Assessment and Plan: ACUTE * Resolving - at or near baseline today * B.L. renal fx: CR 1.29 to 1.59, eGFR 44-56. CKD3a * 2/2 dehydration * IVF as above * Continue to hold renal toxic medications today - lisinopril * Consider resuming in AM pending clinical course/renal fx * CMP daily (7) Acute conjunctivitis, left eye: Assessment and Plan: ACUTE * Vigamox gtts TID x 7 days Qualifiers: Acute conjunctivitis type: unspecified Qualified Code(s): H10.32 - Unspecified acute conjunctivitis, left eye (8) Fibromyalgia: Assessment and Plan: CHRONIC * Continue home SSRI, gabapentin, requip (9) Hyperlipidemia: Assessment and Plan: CHRONIC * Continue home statin (10) Hypothyroid: Assessment and Plan: CHRONIC * Continue home levothyroxine, liothyronine * TSH subtherapeutic at 7.923 * Defer to outpatient managing provider if levothyroxine vs liothyronine should be adjusted (11) Depression: Assessment and Plan: CHRONIC * Continue home sertraline (12) Hypertension: Assessment and Plan: CHRONIC * Continue home imdur * Hold home lisinopril for now d/t CURLY * PRN IVP Hydralazine (13) Diabetes: Assessment and Plan: CHRONIC * Continue home lantus daily * Med dose SSI for glucose correction * ACHS glucometer checks * Med CC diet (14) GERD (gastroesophageal reflux disease): Assessment and Plan: CHRONIC * Continue home PPI
--- NOTE | 2023-07-17 10:30 | PM.PN ---
Progress Note: Subjective Subjective Interval history: 07/17/23921 The patient is lying in bed resting at the time of my exam. His upper respiratory congestion is audibly improved, but the patient continues to complain of significant cough, fatigue and malaise. Nursing was able to wean him off of O2 supplementation overnight and he remains on room air this morning. Procalcitonin was significantly elevated at 2.3 yesterday indicating likely bacterial pneumonia process. We have ordered a sputum sample. For now we will continue with broad-spectrum Rocephin and azithromycin pending sputum culture results for de-escalation. He is mildly hypokalemic this morning which will be repleted. His magnesium level is within low normal limits today but we will start twice daily mag oxide supplementation to keep his magnesium level topped up. The patient shows slight improvement today but will require at least another midnight possibly two midnights before discharge will be considered. Exam Constitutional Vital Signs, click to edit/add: Last Vital Signs Temp 97.7 F 07/17/23 05:52 Pulse 78 07/17/23 10:07 Resp 20 07/17/23 05:52 BP 141/84 07/17/23 05:52 Pulse Ox 94 L 07/17/23 05:52 O2 Del Method Room Air 07/17/23 05:52 O2 Flow Rate 2 07/16/23 16:13 Common normals: no apparent distress, oriented x3 and alert General appearance: cooperative Orientation/consciousness: Yes awake HENGA Common normals: normocephalic, head/scalp atraumatic and hearing grossly normal bilaterally Eye Common normals: PERRL, EOMs intact bilaterally and no scleral icterus General eye: normal appearance of both eyes Chest Common normals: inspection of chest normal Chest: symmetrical chest wall rise Respiratory Common normals: normal respiratory effort and no use of accessory muscles Effort & inspection: able to speak in complete sentences Auscultation: wheezes (Faint insp wheeze scattered throughout) expiratory wheezes (with coughing) Cardio Common normals: regular rate, regular rhythm, S1 normal heart sound, S2 normal heart sound, no murmurs and peripheral pulses 2+ throughout GI Common normals: Normal to inspection, nondistended, normoactive bowel sounds present, soft to palpation, non-tender and no hepatosplenomegaly Bladder/kidney exam: bladder normal to palpation Extremity Common normals: normal to inspection and no calf tenderness General: no clubbing, no cyanosis and no edema Neuro Common normals: CN's II-XII intact bilaterally, moves all extremities, no focal motor deficits and no sensory deficits noted Psych Common normals: mental status grossly normal Progress Note: Objective Labs Labs: Short CBC 07/16/23 07/17/23 Range/Units 12:13 03:49 WBC 10.5 8.8 (4.0-11.0) 10^3/uL Hgb 10.4 L 9.8 L (14.0-18.0) g/dL Hct 32.9 L 30.6 L (42.0-54.0) % Plt Count 221 247 (150-450) 10^3/uL BMP 07/16/23 07/17/23 12:13 03:49 Sodium 135 L 137 Potassium 2.7 L* 3.0 L Chloride 98 101 Carbon Dioxide 26.0 26.6 BUN 22.0 H 18.0 Creatinine 1.70 H 1.38 H Glucose 181 H 178 H Calcium 8.0 L 7.8 L Liver Function 07/16/23 07/17/23 Range/Units 12:13 03:49 Total Bilirubin 0.7 0.5 (0.2-1.0) mg/dL AST 40 H 31 (15-37) U/L ALT 23 21 (16-63) U/L Alkaline Phosphatase 165 H 179 H (46-116) U/L Albumin 1.8 L 1.7 L (3.4-5.0) g/dL Urine 07/16/23 Range/Units 13:10 Urine Color Yellow (YELLOW) Urine Clarity Clear (CLEAR) Urine pH 6.0 (5.0-9.0) Ur Specific [place] 1.025 (1.005-1.025) Urine Protein 100 A (NEG/TRACE) mg/dL Urine Glucose (UA) 100 A (NEGATIVE) mg/dL Laboratory Tests 07/16/23 07/17/23 12:13 03:49 Procalcitonin 2.30 H TSH 7.923 H Progress Note: A&P Assessment and Plan (1) Pneumonia: Assessment and Plan: ACUTE Mild improvement Off O2 supplementation Afebrile x 12 hrs Persistent cough, malaise, fatigue Suspect viral URI w/ secondary bacterial LLL consolidation COVID swab neg check full resp panel neg Procalcitonin - 2.3, consistent w/ bacterial PNA-at risk for sepsis Continue IVPB Rocephin and azithromycin Continue Duoneb TID plus PRN q4h Continue scheduled tessalon perles and guaifenisen O2 to keep sats above 90% - currently stable on RA Continue LR at 125/hr CBC, CMP daily Qualifiers: Laterality: right Lung location: lower lobe of lung Pneumonia type: due to unspecified organism Qualified Code(s): J18.9 - Pneumonia, unspecified organism (2) Acute respiratory failure: Assessment and Plan: ACUTE Resolving Weaned off O2 supplementation last night Qualifiers: Respiratory failure complication: hypoxia Qualified Code(s): J96.01 - Acute respiratory failure with hypoxia (3) Gastroenteritis: Assessment and Plan: ACUTE Suspected viral illness w/ URI, cough and diarrhea. No N/V - just gagging, dry heaves with prolonged coughing Pt reports intermittent watery diarrhea x 10 days No diarrhea reported overnight check C-diff - still pending watery stool Continue floranex Consider loperamide if c-diff is negative Zofran if nausea occurs (4) Acute hypokalemia: Assessment and Plan: ACUTE K+ 3.0 today after aggressive repletion yesterday afternoon Suspect 2/2 GI losses w/ persistent diarrhea and poor po intake KCL 40 meq IVPB plus 40 meq PO today Tele monitoring - no concerning EKG changes Daily CMP to monitor (5) Hypomagnesemia: Assessment and Plan: ACUTE Resolving Mg 1.8 in ED Suspect 2/2 GI losses w/ persistent diarrhea and poor po intake Mag oxide BID Repeat Mag level in AM (6) Acute kidney injury: Assessment and Plan: ACUTE Resolving - at or near baseline today B.L. renal fx: CR 1.29 to 1.59, eGFR 44-56. CKD3a 2/2 dehydration IVF as above Continue to hold renal toxic medications today - lisinopril Consider resuming in AM pending clinical course/renal fx CMP daily (7) Acute conjunctivitis, left eye: Assessment and Plan: ACUTE Vigamox gtts TID x 7 days Qualifiers: Acute conjunctivitis type: unspecified Qualified Code(s): H10.32 - Unspecified acute conjunctivitis, left eye (8) Fibromyalgia: Assessment and Plan: CHRONIC Continue home SSRI, gabapentin, requip (9) Hyperlipidemia: Assessment and Plan: CHRONIC Continue home statin (10) Hypothyroid: Assessment and Plan: CHRONIC Continue home levothyroxine, liothyronine TSH subtherapeutic at 7.923 Defer to outpatient managing provider if levothyroxine vs liothyronine should be adjusted (11) Depression: Assessment and Plan: CHRONIC Continue home sertraline (12) Hypertension: Assessment and Plan: CHRONIC Continue home imdur Hold home lisinopril for now d/t CURLY PRN IVP Hydralazine (13) Diabetes: Assessment and Plan: CHRONIC Continue home lantus daily Med dose SSI for glucose correction ACHS glucometer checks Med CC diet (14) GERD (gastroesophageal reflux disease): Assessment and Plan: CHRONIC Continue home PPI
--- NOTE | 2023-07-17 10:58 | CM.NOTE ---
Important Message From Medicare discussed with pt, pt verbalizes understanding and signs paper. Original given to pt and copy placed on pt's chart.
[2023-07-17 11:32] LABS: Glucometer 213 mg/dL (74-106)
--- NOTE | 2023-07-17 12:14 | CM.NOTE ---
Discussed with pt OT recommendations with pt regarding HH services. Pt refuses any HH services at this time. Pt states I just don't like to be bothered or have to be available at a certain time during the day. . Pt appreciative of offer but declines at this time.
[2023-07-17] MEDS: AZITHROMYCIN 250 MG TABLET 500 MG PO (15:25)
[2023-07-17] MEDS: CEFTRIAXONE 1,000 MG in 0.9 % SODIUM CHLORIDE 50 ML 100 MG IV (15:26)
[2023-07-17 16:18] LABS: Glucometer 182 mg/dL (74-106)
[2023-07-17 21:34] LABS: Glucometer 223 mg/dL (74-106)
[2023-07-17] MEDS: MAGNESIUM OXIDE 400 MG TABLET PO (21:34)
[2023-07-17] MEDS: ENOXAPARIN SODIUM 30 MG/0.3 ML SYRINGE SUBQ (21:34)
[2023-07-17] MEDS: ATORVASTATIN CALCIUM 40 MG TABLET PO (21:34)
[2023-07-17] MEDS: INSULIN ASPART 300 UNIT/3 ML PEN SUBQ (21:35)
[2023-07-17] MEDS: ROPINIROLE HCL 0.25 MG TABLET 0.5 MG PO (21:35)
[2023-07-18] VITALS (19 sets, daily range): BP systolic 113–155; BP diastolic 67–99; PULSE 77–130; RESP 18; TEMP 36.6–36.8; O2SAT 92–96
[2023-07-18] MEDS: PROMETHAZINE HCL/CODEINE 6.25 MG-10 MG/5 ML SYRUP 5 MG PO ×3 (00:44→21:29)
[2023-07-18] MEDS: LACTATED RINGER'S SOLUTION 1,000 ML 125 ML IV ×2 (01:50→08:50)
[2023-07-18 06:01] LABS: Basophils Absolute Auto 0.1 10^3/uL (0.0-0.1); Basophils Percent Auto 0.7 % (0.2-2.0); Eosinophils Absolute Auto 0.3 10^3/uL (0.0-0.7); Eosinophils Percent Auto 3.4 % (0.9-7.0); Hematocrit 30.5 % (42.0-54.0); Hemoglobin 9.7 g/dL (14.0-18.0); Immature Granulocytes Abs Auto 0.09 10^3/uL (0.00-0.03); Immature Granulocytes Pct Auto 1.2 % (0.0-0.5); Lymphocytes Absolute Auto 1.4 10^3/uL (1.2-3.8); Lymphocytes Percent Auto 17.9 % (20.5-60.0); Mean Corpuscular HGB Conc 31.8 g/dL (29.9-35.2); Mean Corpuscular Hemoglobin 28.7 pg (25.9-34.0); Mean Corpuscular Volume 90.2 fL (80.0-94.0); Mean Platelet Volume 10.2 fL (9.5-13.5); Monocytes Absolute Auto 0.7 10^3/uL (0.3-0.8); Neutrophils Absolute Auto 5.2 10^3/uL (1.4-6.5); Neutrophils Percent Auto 67.8 % (43.0-75.0); Platelet Count 240 10^3/uL (150-450); Red Blood Count 3.38 10^6/uL (4.70-6.10); Red Cell Distribution Width 15.2 % (11.0-15.0); White Blood Count 7.7 10^3/uL (4.0-11.0)
[2023-07-18] MEDS: BENZONATATE 100 MG CAPSULE 200 MG PO ×3 (06:15→21:28)
[2023-07-18] MEDS: MOXIFLOXACIN HCL 0.5% OP 60 DROP/3 ML BOTTLE OP ×3 (06:15→21:29)
[2023-07-18] MEDS: LEVOTHYROXINE SODIUM 100 MCG TABLET 200 MCG PO (06:15)
[2023-07-18 06:47] LABS: Alanine Aminotransferase 19 U/L (16-63); Albumin Globulin Ratio 0.3; Albumin Level 1.6 g/dL (3.4-5.0); Alkaline Phosphatase 176 U/L (46-116); Anion Gap 8.7; Aspartate Amino Transferase 32 U/L (15-37); BUN Creatinine Ratio 11.4; Bilirubin Total 0.3 mg/dL (0.2-1.0); Calcium 8.1 mg/dL (8.5-10.1); Chloride 102 mmol/L (98-107); Estimated GFR (African America >60 (>=60); Estimated GFR (Non-African Ame 59 (>=60); Globulin 5.8 g/dL; Glucose 165 mg/dL (74-106); Potassium 3.7 mmol/L (3.5-5.1); Sodium 136 mmol/L (136-145); Total Protein 7.4 g/dL (6.4-8.2)
[2023-07-18 06:53] LABS: Magnesium 1.4 mg/dL (1.8-2.4)
[2023-07-18 08:20] LABS: Glucometer 167 mg/dL (74-106)
[2023-07-18] MEDS: LIOTHYRONINE SODIUM 5 MCG TABLET PO (08:51)
[2023-07-18] MEDS: OMEPRAZOLE 40 MG CAPSULE.DR PO (08:51)
[2023-07-18] MEDS: GABAPENTIN 100 MG CAPSULE PO ×2 (08:51→21:28)
[2023-07-18] MEDS: SERTRALINE HCL 100 MG TABLET PO (08:51)
[2023-07-18] MEDS: MAGNESIUM OXIDE 400 MG TABLET PO ×2 (08:51→21:28)
[2023-07-18] MEDS: L. ACIDOPHILUS/L.BULGARICUS 1 PACKET GRAN.PACK PO ×2 (08:51→21:28)
[2023-07-18] MEDS: ISOSORBIDE MONONITRATE 30 MG TAB.ER.24H PO (08:51)
[2023-07-18] MEDS: GUAIFENESIN 600 MG TAB.ER.12H PO ×2 (08:51→21:28)
[2023-07-18] MEDS: INSULIN DETEMIR 300 UNIT/3 ML INSULN.PEN 30 UNIT SUBQ (08:53)
[2023-07-18] MEDS: IPRATROPIUM/ALBUTEROL SULFATE 3 ML AMPUL.NEB IH ×3 (09:43→20:21)
--- NOTE | 2023-07-18 10:02 | CM.NOTE ---
Rounding with Dr. Chicas. Pt. voices he does not feel ready to go home today. Dr. Chicas voices possibly keeping one more day with anticipated discharge tomorrow. Pt. refuses home health at this time and does not feel he needs as he drives and gets around town on his own. No anticipated discharge needs.
[2023-07-18 11:36] LABS: Glucometer 124 mg/dL (74-106)
[2023-07-18] MEDS: AZITHROMYCIN 250 MG TABLET 500 MG PO (11:47)
--- NOTE | 2023-07-18 12:49 | P.IMPN_ITS ---
Progress Note: A&P Assessment and Plan (1) Pneumonia: Assessment and Plan: Community acquired PNA - on rocephin/azithromycin. Better than before but still quite weak/lethargic. Reports SOB is better but feels SOB on exertion. C/w same treatment. Qualifiers: Laterality: right Lung location: lower lobe of lung Pneumonia type: due to unspecified organism Qualified Code(s): J18.9 - Pneumonia, unspecified organism (2) Acute respiratory failure: Assessment and Plan: Resolved. On RA. Qualifiers: Respiratory failure complication: hypoxia Qualified Code(s): J96.01 - Acute respiratory failure with hypoxia (3) Gastroenteritis: Assessment and Plan: Nausea, vomiting was likely because of pneumonia. Resolved. Tolerating PO diet. No acute pathology noted on CT. (4) Acute hypokalemia: Assessment and Plan: Due to nausea/vomiting, resolved. (5) Hypomagnesemia: Assessment and Plan: IV mag ordered. on PO mag as well (6) Acute kidney injury: Assessment and Plan: Resolved with IV hydration. Good PO intake. D/c IVF. (7) Acute conjunctivitis, left eye: Assessment and Plan: On moxifloxacin eye drops. Qualifiers: Acute conjunctivitis type: unspecified Qualified Code(s): H10.32 - Unspecified acute conjunctivitis, left eye (8) Fibromyalgia: Assessment and Plan: on gabapentin (9) Hyperlipidemia: Assessment and Plan: c/w statin Qualifiers: Hyperlipidemia type: unspecified Qualified Code(s): E78.5 - Hyperlipidemia, unspecified (10) Hypothyroid: Assessment and Plan: c/w levothyroxine Qualifiers: Hypothyroidism type: unspecified Qualified Code(s): E03.9 - Hypothyroidism, unspecified (11) Depression: Assessment and Plan: c/w sertraline Qualifiers: Depression Type: unspecified Qualified Code(s): F32.A - Depression, unspecified (12) Hypertension: Assessment and Plan: BP above goal. Likely because he was taken off of his lisinopril due to CURLY Resume lisinopril at 20 mg. Monitor BP. Qualifiers: Hypertension type: primary hypertension Qualified Code(s): I10 - Essential (primary) hypertension (13) Diabetes: Assessment and Plan: C/w FRANCISCO Kay. his home dose is 40 units. He is receiving 30 units currently. Qualifiers: Diabetes mellitus type: type 2 Diabetes mellitus longterm insulin use: with longterm use Diabetes mellitus complication status: without complication Qualified Code(s): E11.9 - Type 2 diabetes mellitus without complications; Z79.4 - jail (current) use of insulin (14) GERD (gastroesophageal reflux disease): Assessment and Plan: c/w nexium Qualifiers: Esophagitis presence: without esophagitis Qualified Code(s): K21.9 - Gastro-esophageal reflux disease without esophagitis Plan Continued inpatient stay as continues to feel SOB on exertion, along with weakness, lethargy. At high risk of relapse/readmission if discharged prematurely as patient lives by himself and has multiple comorbidities for poor outcome and prognosis. Possible d/c tomorrow Internal Medicine - PN: Subj Subjective Interval history: Seen and examined. Reports feeling weak, achy and tired all over. He reports when he coughs, he wears himself out. He is on RA now and denies N,V or diarrhea. Exam Constitutional Vital Signs, click to edit/add: Last Vital Signs Temp 97.9 F 07/18/23 06:00 Pulse 116 H 07/18/23 10:00 Resp 18 07/18/23 06:00 BP 155/99 H 07/18/23 06:00 Pulse Ox 96 07/18/23 09:43 O2 Del Method Room Air 07/18/23 06:00 O2 Flow Rate 2 07/16/23 16:13 Documenting provider has reviewed patient's vital signs: yes Common normals: no apparent distress and oriented x3 General appearance: cooperative Eye Other: left eye -conjunctivitis noted. Respiratory Common normals: normal respiratory effort and clear to auscultation bilaterally Effort & inspection: able to speak in complete sentences Auscultation: clear to auscultation bilaterally Cardio Common normals: regular rate, S1 normal heart sound and S2 normal heart sound Rate: regular rate Heart sounds: S1 normal and S2 normal Internal Medicine - PN: Obj Da Labs Labs: Laboratory Results - last 24 hr 07/17/23 07/17/23 07/18/23 16:18 21:32 05:17 WBC 7.7 RBC 3.38 L Hgb 9.7 L Hct 30.5 L MCV 90.2 MCH 28.7 MCHC 31.8 RDW 15.2 H Plt Count 240 MPV 10.2 Neut % (Auto) 67.8 Lymph % (Auto) 17.9 L [place] % (Auto) 9.0 Eos % (Auto) 3.4 Baso % (Auto) 0.7 Neut # (Auto) 5.2 Lymph # (Auto) 1.4 [place] # (Auto) 0.7 Eos # (Auto) 0.3 Baso # (Auto) 0.1 Abs Immat Gran (auto) 0.09 H Imm/Tot Granulo (auto) 1.2 H Sodium 136 Potassium 3.7 Chloride 102 Carbon Dioxide 29.0 Anion Gap 8.7 BUN 14.0 Creatinine 1.23 Est GFR ( Amer) >60 Est GFR (Non-Af Amer) 59 L BUN/Creatinine Ratio 11.4 Glucose 165 H Calcium 8.1 L Magnesium 1.4 L Total Bilirubin 0.3 AST 32 ALT 19 Alkaline Phosphatase 176 H Total Protein 7.4 Albumin 1.6 L Globulin 5.8 Albumin/Globulin Ratio 0.3 POC Glucose 182 H 223 H 07/18/23 07/18/23 08:19 11:35 WBC RBC Hgb Hct MCV MCH MCHC RDW Plt Count MPV Neut % (Auto) Lymph % (Auto) [place] % (Auto) Eos % (Auto) Baso % (Auto) Neut # (Auto) Lymph # (Auto) [place] # (Auto) Eos # (Auto) Baso # (Auto) Abs Immat Gran (auto) Imm/Tot Granulo (auto) Sodium Potassium Chloride Carbon Dioxide Anion Gap BUN Creatinine Est GFR ( Amer) Est GFR (Non-Af Amer) BUN/Creatinine Ratio Glucose Calcium Magnesium Total Bilirubin AST ALT Alkaline Phosphatase Total Protein Albumin Globulin Albumin/Globulin Ratio POC Glucose 167 H 124 H
[2023-07-18] MEDS: CEFTRIAXONE 1,000 MG in 0.9 % SODIUM CHLORIDE 50 ML 100 MG IV (14:08)
[2023-07-18] MEDS: MAGNESIUM SULFATE IN WATER 2 GM/50 ML PREMIX IV (14:09)
[2023-07-18] MEDS: LISINOPRIL 20 MG TABLET PO (14:09)
[2023-07-18 16:23] LABS: Glucometer 270 mg/dL (74-106)
[2023-07-18] MEDS: ATORVASTATIN CALCIUM 40 MG TABLET PO (21:27)
[2023-07-18] MEDS: ROPINIROLE HCL 0.25 MG TABLET 0.5 MG PO (21:27)
[2023-07-18] MEDS: ENOXAPARIN SODIUM 30 MG/0.3 ML SYRINGE SUBQ (21:34)
[2023-07-18 22:02] LABS: Glucometer 126 mg/dL (74-106)
[2023-07-19] VITALS (17 sets, daily range): BP systolic 138–165; BP diastolic 74–88; PULSE 78–117; RESP 18–20; TEMP 36.1–37.1; O2SAT 90–97
[2023-07-19] MEDS: LEVOTHYROXINE SODIUM 100 MCG TABLET 200 MCG PO (04:40)
[2023-07-19] MEDS: BENZONATATE 100 MG CAPSULE 200 MG PO ×3 (04:40→21:08)
[2023-07-19] MEDS: PROMETHAZINE HCL/CODEINE 6.25 MG-10 MG/5 ML SYRUP 5 MG PO (05:06)
[2023-07-19 05:14] LABS: Basophils Absolute Auto 0.1 10^3/uL (0.0-0.1); Basophils Percent Auto 0.6 % (0.2-2.0); Eosinophils Absolute Auto 0.4 10^3/uL (0.0-0.7); Eosinophils Percent Auto 4.3 % (0.9-7.0); Hematocrit 31.3 % (42.0-54.0); Hemoglobin 9.9 g/dL (14.0-18.0); Immature Granulocytes Abs Auto 0.06 10^3/uL (0.00-0.03); Immature Granulocytes Pct Auto 0.7 % (0.0-0.5); Lymphocytes Absolute Auto 1.5 10^3/uL (1.2-3.8); Lymphocytes Percent Auto 17.9 % (20.5-60.0); Mean Corpuscular HGB Conc 31.6 g/dL (29.9-35.2); Mean Corpuscular Hemoglobin 28.6 pg (25.9-34.0); Mean Corpuscular Volume 90.5 fL (80.0-94.0); Mean Platelet Volume 10.6 fL (9.5-13.5); Monocytes Absolute Auto 0.7 10^3/uL (0.3-0.8); Monocytes Percent Auto 7.9 % (1.7-12.0); Neutrophils Absolute Auto 5.7 10^3/uL (1.4-6.5); Neutrophils Percent Auto 68.6 % (43.0-75.0); Platelet Count 272 10^3/uL (150-450); Red Blood Count 3.46 10^6/uL (4.70-6.10); Red Cell Distribution Width 15.4 % (11.0-15.0); White Blood Count 8.3 10^3/uL (4.0-11.0)
[2023-07-19 05:23] LABS: Magnesium 1.7 mg/dL (1.8-2.4)
[2023-07-19 05:28] LABS: Alanine Aminotransferase 26 U/L (16-63); Albumin Globulin Ratio 0.3; Albumin Level 1.7 g/dL (3.4-5.0); Alkaline Phosphatase 183 U/L (46-116); Anion Gap 10.9; Aspartate Amino Transferase 38 U/L (15-37); BUN Creatinine Ratio 12.1; Bilirubin Total 0.3 mg/dL (0.2-1.0); Calcium 8.1 mg/dL (8.5-10.1); Carbon Dioxide 28.5 mmol/L (21.0-32.0); Chloride 102 mmol/L (98-107); Estimated GFR (African America >60 (>=60); Estimated GFR (Non-African Ame 59 (>=60); Globulin 5.9 g/dL; Glucose 160 mg/dL (74-106); Potassium 4.4 mmol/L (3.5-5.1); Sodium 137 mmol/L (136-145); Total Protein 7.6 g/dL (6.4-8.2)
[2023-07-19] MEDS: IPRATROPIUM/ALBUTEROL SULFATE 3 ML AMPUL.NEB IH ×2 (08:41→20:18)
--- NOTE | 2023-07-19 08:54 | PM.DS1 ---
DS: Providers Provider Date of admission: 07/16/23 14:44 Primary care physician: Ayden Ashford MD Consults: 07/17/23 08:04 Occupational Therapy Eval and Treat Routine Reason for consultation: gen weakness Has provider been notified: No Physical Therapy Eval and Treat Routine Reason for consultation: gen weakness Has provider been notified: No DS: Diagnosis Discharge Diagnosis (1) Pneumonia: Qualifiers: Laterality: right Lung location: lower lobe of lung Pneumonia type: due to unspecified organism Qualified Code(s): J18.9 - Pneumonia, unspecified organism (2) Acute respiratory failure: Qualifiers: Respiratory failure complication: hypoxia Qualified Code(s): J96.01 - Acute respiratory failure with hypoxia (3) Gastroenteritis: (4) Acute hypokalemia: (5) Hypomagnesemia: (6) Acute kidney injury: (7) Acute conjunctivitis, left eye: Qualifiers: Acute conjunctivitis type: unspecified Qualified Code(s): H10.32 - Unspecified acute conjunctivitis, left eye (8) Fibromyalgia: (9) Hyperlipidemia: Qualifiers: Hyperlipidemia type: unspecified Qualified Code(s): E78.5 - Hyperlipidemia, unspecified (10) Hypothyroid: Qualifiers: Hypothyroidism type: unspecified Qualified Code(s): E03.9 - Hypothyroidism, unspecified (11) Depression: Qualifiers: Depression Type: unspecified Qualified Code(s): F32.A - Depression, unspecified (12) Hypertension: Qualifiers: Hypertension type: primary hypertension Qualified Code(s): I10 - Essential (primary) hypertension (13) Diabetes: Qualifiers: Diabetes mellitus type: type 2 Diabetes mellitus mcc insulin use: with mcc use Diabetes mellitus complication status: without complication Qualified Code(s): E11.9 - Type 2 diabetes mellitus without complications; Z79.4 - terminal computer operator (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) use of insulin (14) GERD (gastroesophageal reflux disease): Qualifiers: Esophagitis presence: without esophagitis Qualified Code(s): K21.9 - Gastro-esophageal reflux disease without esophagitis DS: Summary Time Spent with Patient Time attestation: Total time spent providing and/or coordinating discharge services: Exam Constitutional Vital Signs, click to edit/add: Last Vital Signs Temp 97.4 F L 07/19/23 03:56 Pulse 92 H 07/19/23 08:11 Resp 18 07/19/23 03:56 BP 165/88 H 07/19/23 03:56 Pulse Ox 90 L 07/19/23 03:56 O2 Del Method Room Air 07/19/23 03:56 O2 Flow Rate 2 07/16/23 16:13 DS: Data Data Completed and Pending Labs on day of discharge: Labs from last 24 hours 07/19/23 07/18/23 07/18/23 04:23 21:49 16:22 WBC 8.3 RBC 3.46 L Hgb 9.9 L Hct 31.3 L MCV 90.5 MCH 28.6 MCHC 31.6 RDW 15.4 H Plt Count 272 MPV 10.6 Neut % (Auto) 68.6 Lymph % (Auto) 17.9 L [place] % (Auto) 7.9 Eos % (Auto) 4.3 Baso % (Auto) 0.6 Neut # (Auto) 5.7 Lymph # (Auto) 1.5 [place] # (Auto) 0.7 Eos # (Auto) 0.4 Baso # (Auto) 0.1 Abs Immat Gran (auto) 0.06 H Imm/Tot Granulo (auto) 0.7 H Sodium 137 Potassium 4.4 Chloride 102 Carbon Dioxide 28.5 Anion Gap 10.9 BUN 15.0 Creatinine 1.24 Est GFR ( Amer) >60 Est GFR (Non-Af Amer) 59 L BUN/Creatinine Ratio 12.1 Glucose 160 H Calcium 8.1 L Magnesium 1.7 L Total Bilirubin 0.3 AST 38 H ALT 26 Alkaline Phosphatase 183 H Total Protein 7.6 Albumin 1.7 L Globulin 5.9 Albumin/Globulin Ratio 0.3 POC Glucose 126 H 270 H 07/18/23 11:35 WBC RBC Hgb Hct MCV MCH MCHC RDW Plt Count MPV Neut % (Auto) Lymph % (Auto) [place] % (Auto) Eos % (Auto) Baso % (Auto) Neut # (Auto) Lymph # (Auto) [place] # (Auto) Eos # (Auto) Baso # (Auto) Abs Immat Gran (auto) Imm/Tot Granulo (auto) Sodium Potassium Chloride Carbon Dioxide Anion Gap BUN Creatinine Est GFR ( Amer) Est GFR (Non-Af Amer) BUN/Creatinine Ratio Glucose Calcium Magnesium Total Bilirubin AST ALT Alkaline Phosphatase Total Protein Albumin Globulin Albumin/Globulin Ratio POC Glucose 124 H Preliminary micro results at discharge 07/16/23 14:35 - Preliminary Blood NO GROWTH AT 36-48 HOURS. FINAL TO FOLLOW. 07/16/23 14:30 Blood Culture Result 1 - Preliminary Blood NO GROWTH AT 36-48 HOURS. FINAL TO FOLLOW. Discharge Plan Discharge Condition: Fair Discharge Medications: No Action cefdinir 300 mg capsule 300 mg PO BID Rx Instructions: per refill hx: filled 07/11/23 for QTY 20 for 10 days supply atorvastatin 40 mg tablet 40 mg PO BEDTIME esomeprazole magnesium 40 mg capsule,delayed release(DR/EC) 40 mg PO Q24H gabapentin 100 mg capsule 100 mg PO BID hydroxyzine HCl 25 mg tablet 25 mg PO QID PRN (Reason: nausea and vomiting) insulin glargine [Lantus Solostar U-100 Insulin] 100 unit/mL (3 mL) insulin pen 40 unit SUBCUT DAILY isosorbide mononitrate 30 mg tablet extended release 24 hr 30 mg PO DAILY levothyroxine 200 mcg tablet 200 mcg PO DAILY liothyronine 5 mcg tablet 5 mcg PO DAILY lisinopril 40 mg tablet 40 mg PO DAILY sertraline 100 mg tablet 100 mg PO DAILY oxycodone-acetaminophen 5-325 mg tablet 1 tab PO QID PRN (Reason: pain) Rx Instructions: per refill hx: last filled 06/18/23 for QTY 60 for 15 days ropinirole 0.5 mg tablet 0.5 mg PO BEDTIME Activity Restrictions/Additional Instructions: - Discuss hypothyroid management w/ PCP. TSH elevated at 7.923
[2023-07-19] MEDS: SERTRALINE HCL 100 MG TABLET PO (09:11)
[2023-07-19] MEDS: L. ACIDOPHILUS/L.BULGARICUS 1 PACKET GRAN.PACK PO ×2 (09:11→21:06)
[2023-07-19] MEDS: GABAPENTIN 100 MG CAPSULE PO ×2 (09:11→21:06)
[2023-07-19] MEDS: ISOSORBIDE MONONITRATE 30 MG TAB.ER.24H PO (09:11)
[2023-07-19] MEDS: LIOTHYRONINE SODIUM 5 MCG TABLET PO (09:11)
[2023-07-19] MEDS: MAGNESIUM OXIDE 400 MG TABLET PO ×2 (09:11→21:06)
[2023-07-19] MEDS: LISINOPRIL 20 MG TABLET PO (09:11)
[2023-07-19] MEDS: OMEPRAZOLE 40 MG CAPSULE.DR PO (09:12)
[2023-07-19] MEDS: INSULIN DETEMIR 300 UNIT/3 ML INSULN.PEN 30 UNIT SUBQ (09:12)
[2023-07-19] MEDS: INSULIN ASPART 300 UNIT/3 ML PEN SUBQ ×3 (09:13→21:09)
[2023-07-19] MEDS: GUAIFENESIN 600 MG TAB.ER.12H PO ×2 (09:13→21:06)
--- NOTE | 2023-07-19 10:07 | PT.DAILY ---
Physical Therapy Daily Note PT Daily Note/Assess Start: 07/18/23 12:42 Freq: Status: Active Protocol: Document 07/19/23 09:40 ELLIS (Rec: 07/19/23 10:07 ELLIS [id number]) Visit Not Completed Visit Not Completed Visit Not Completed Due to: Pt refusing Other Reason Visit Not Completed Patient declined RX, reports getting up Ind. to bathroom without walker. Reports does not need therapy. Reports has a cold and doesn't feel good. Time was spent educating patient on need to get up and move, sit in chair and not lye in bed as lying in bed makes the cold worse and increases risk for pneumonia. Patient verbalizes understanding and continues to refuse. Physical Therapy Daily Note/Assessment Time In/Time Out Time In 09:40 Time Out 09:45 GG. Functional Abilities and Goals-Complete for Swing Bed Patients Only [id number]. Self-Care [id number]. Mobility
[2023-07-19 11:57] LABS: Glucometer 166 mg/dL (74-106)
[2023-07-19] MEDS: AZITHROMYCIN 250 MG TABLET 500 MG PO (12:06)
[2023-07-19] MEDS: MOXIFLOXACIN HCL 0.5% OP 60 DROP/3 ML BOTTLE OP ×2 (15:02→21:09)
[2023-07-19] MEDS: CEFTRIAXONE 1,000 MG in 0.9 % SODIUM CHLORIDE 50 ML 100 MG IV (15:02)
--- NOTE | 2023-07-19 15:54 | PM.PN ---
Progress Note: Subjective Subjective Interval history: today, he reports when he coughs, he wears himself out. He is on RA now and denies N,V or diarrhea. Exam Narrative Exam Narrative: General: Patient is alert, and oriented to person, place and time with normal affect, proper hygiene Skin: no visible rashes, or ulcers Head: atraumatic, acephalic Eyes: PERRLA, no nystagmus present, conjunctiva clear, no scleral icterus Heart: Normal rate and rhythm, no murmurs/rubs/gallops Lungs: no audible wheezes, crackles and diminished breath sounds all lung carrion Abdomen: Normal audible bowel sounds, no distension, No palpable masses, no organomegaly, no rebound/guarding/ or rigidity Neuro: CN II-X grossly intact Constitutional Vital Signs, click to edit/add: Last Vital Signs Temp 98.8 F 07/19/23 14:00 Pulse 112 H 07/19/23 14:06 Resp 20 07/19/23 14:00 BP 138/74 07/19/23 14:00 Pulse Ox 97 07/19/23 14:00 O2 Del Method Room Air 07/19/23 14:00 O2 Flow Rate 2 07/16/23 16:13 Progress Note: Objective Labs Labs: Short CBC 07/19/23 Range/Units 04:23 WBC 8.3 (4.0-11.0) 10^3/uL Hgb 9.9 L (14.0-18.0) g/dL Hct 31.3 L (42.0-54.0) % Plt Count 272 (150-450) 10^3/uL BMP 07/19/23 04:23 Sodium 137 Potassium 4.4 Chloride 102 Carbon Dioxide 28.5 BUN 15.0 Creatinine 1.24 Glucose 160 H Calcium 8.1 L Liver Function 07/19/23 Range/Units 04:23 Total Bilirubin 0.3 (0.2-1.0) mg/dL AST 38 H (15-37) U/L ALT 26 (16-63) U/L Alkaline Phosphatase 183 H (46-116) U/L Albumin 1.7 L (3.4-5.0) g/dL Progress Note: A&P Assessment and Plan (1) Pneumonia: Assessment and Plan: Community acquired PNA continue on rocephin/azithromycin, transition to orals tomorrow Qualifiers: Laterality: right Lung location: lower lobe of lung Pneumonia type: due to unspecified organism Qualified Code(s): J18.9 - Pneumonia, unspecified organism (2) Acute respiratory failure: Assessment and Plan: Resolved. On RA Qualifiers: Respiratory failure complication: hypoxia Qualified Code(s): J96.01 - Acute respiratory failure with hypoxia (3) Gastroenteritis: Assessment and Plan: Nausea, vomiting was likely because of pneumonia. Resolved. Tolerating PO diet. No acute pathology noted on CT. (4) Acute hypokalemia: Assessment and Plan: Due to nausea/vomiting, resolved. (5) Hypomagnesemia: Assessment and Plan: continue oral mag (6) Acute kidney injury: Assessment and Plan: resolved with IVF (7) Acute conjunctivitis, left eye: Assessment and Plan: continue moxifloxacin eye drops. Qualifiers: Acute conjunctivitis type: unspecified Qualified Code(s): H10.32 - Unspecified acute conjunctivitis, left eye (8) Fibromyalgia: Assessment and Plan: on gabapentin (9) Hyperlipidemia: Assessment and Plan: continue statin Qualifiers: Hyperlipidemia type: unspecified Qualified Code(s): E78.5 - Hyperlipidemia, unspecified (10) Hypothyroid: Assessment and Plan: continue levothyroxine Qualifiers: Hypothyroidism type: unspecified Qualified Code(s): E03.9 - Hypothyroidism, unspecified (11) Depression: Assessment and Plan: continue sertraline Qualifiers: Depression Type: unspecified Qualified Code(s): F32.A - Depression, unspecified (12) Hypertension: Assessment and Plan: continue home meds Qualifiers: Hypertension type: primary hypertension Qualified Code(s): I10 - Essential (primary) hypertension (13) Diabetes: Assessment and Plan: continue ssi, and levemir Qualifiers: Diabetes mellitus type: type 2 Diabetes mellitus 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 continue lovenox
[2023-07-19 16:38] LABS: Glucometer 142 mg/dL (74-106)
[2023-07-19 20:07] LABS: Glucometer 145 mg/dL (74-106)
[2023-07-19] MEDS: ENOXAPARIN SODIUM 30 MG/0.3 ML SYRINGE SUBQ (21:06)
[2023-07-19] MEDS: ATORVASTATIN CALCIUM 40 MG TABLET PO (21:06)
[2023-07-19] MEDS: ROPINIROLE HCL 0.25 MG TABLET 0.5 MG PO (21:07)
[2023-07-20] VITALS (9 sets, daily range): BP systolic 126; BP diastolic 75; PULSE 77–88; RESP 18; TEMP 36.7; O2SAT 94–98
[2023-07-20 04:51] LABS: Basophils Absolute Auto 0.1 10^3/uL (0.0-0.1); Basophils Percent Auto 0.9 % (0.2-2.0); Eosinophils Absolute Auto 0.4 10^3/uL (0.0-0.7); Eosinophils Percent Auto 4.9 % (0.9-7.0); Hematocrit 31.4 % (42.0-54.0); Hemoglobin 9.9 g/dL (14.0-18.0); Immature Granulocytes Abs Auto 0.05 10^3/uL (0.00-0.03); Immature Granulocytes Pct Auto 0.7 % (0.0-0.5); Lymphocytes Absolute Auto 1.3 10^3/uL (1.2-3.8); Lymphocytes Percent Auto 17.1 % (20.5-60.0); Mean Corpuscular HGB Conc 31.5 g/dL (29.9-35.2); Mean Corpuscular Hemoglobin 28.8 pg (25.9-34.0); Mean Corpuscular Volume 91.3 fL (80.0-94.0); Monocytes Absolute Auto 0.7 10^3/uL (0.3-0.8); Monocytes Percent Auto 8.8 % (1.7-12.0); Neutrophils Percent Auto 67.6 % (43.0-75.0); Platelet Count 277 10^3/uL (150-450); Red Blood Count 3.44 10^6/uL (4.70-6.10); Red Cell Distribution Width 15.6 % (11.0-15.0); White Blood Count 7.4 10^3/uL (4.0-11.0)
[2023-07-20] MEDS: BENZONATATE 100 MG CAPSULE 200 MG PO (05:38)
[2023-07-20] MEDS: LEVOTHYROXINE SODIUM 100 MCG TABLET 200 MCG PO (05:38)
[2023-07-20] MEDS: MOXIFLOXACIN HCL 0.5% OP 60 DROP/3 ML BOTTLE OP (05:39)
[2023-07-20 05:45] LABS: Alanine Aminotransferase 13 U/L (16-63); Albumin Globulin Ratio 0.3; Albumin Level 1.7 g/dL (3.4-5.0); Alkaline Phosphatase 169 U/L (46-116); Anion Gap 8.1; Aspartate Amino Transferase 37 U/L (15-37); BUN Creatinine Ratio 16.1; Bilirubin Total 0.3 mg/dL (0.2-1.0); Calcium 8.5 mg/dL (8.5-10.1); Carbon Dioxide 31.6 mmol/L (21.0-32.0); Chloride 101 mmol/L (98-107); Estimated GFR (African America >60 (>=60); Estimated GFR (Non-African Ame 59 (>=60); Globulin 5.8 g/dL; Glucose 157 mg/dL (74-106); Potassium 4.7 mmol/L (3.5-5.1); Sodium 136 mmol/L (136-145); Total Protein 7.5 g/dL (6.4-8.2)
[2023-07-20] MEDS: INSULIN ASPART 300 UNIT/3 ML PEN SUBQ ×2 (07:39→11:24)
--- NOTE | 2023-07-20 07:57 | PM.DS1 ---
DS: Providers Provider Date of admission: 07/16/23 14:44 Primary care physician: Ayden Ashford MD Admitting clinician: Shaikh Juan Francisco Consults: 07/17/23 08:04 Occupational Therapy Eval and Treat Routine Reason for consultation: gen weakness Has provider been notified: No Physical Therapy Eval and Treat Routine Reason for consultation: gen weakness Has provider been notified: No Discharging clinician: Svitlana Quevedo DS: Diagnosis Discharge Diagnosis (1) Pneumonia: Qualifiers: Laterality: right Lung location: lower lobe of lung Pneumonia type: due to unspecified organism Qualified Code(s): J18.9 - Pneumonia, unspecified organism (2) Acute respiratory failure: Qualifiers: Respiratory failure complication: hypoxia Qualified Code(s): J96.01 - Acute respiratory failure with hypoxia (3) Gastroenteritis: (4) Acute hypokalemia: (5) Hypomagnesemia: (6) Acute kidney injury: (7) Acute conjunctivitis, left eye: Qualifiers: Acute conjunctivitis type: unspecified Qualified Code(s): H10.32 - Unspecified acute conjunctivitis, left eye (8) Fibromyalgia: (9) Hyperlipidemia: Qualifiers: Hyperlipidemia type: unspecified Qualified Code(s): E78.5 - Hyperlipidemia, unspecified (10) Hypothyroid: Qualifiers: Hypothyroidism type: unspecified Qualified Code(s): E03.9 - Hypothyroidism, unspecified (11) Depression: Qualifiers: Depression Type: unspecified Qualified Code(s): F32.A - Depression, unspecified (12) Hypertension: Qualifiers: Hypertension type: primary hypertension Qualified Code(s): I10 - Essential (primary) hypertension (13) Diabetes: Qualifiers: Diabetes mellitus complication status: without complication 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 Diabetes mellitus type: type 2 Qualified Code(s): E11.9 - Type 2 diabetes mellitus without complications; Z79.4 - intermediate manager (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 Work-up in the ED revealed fever (101.4), no leukocytosis but significant electrolyte derangements (K+ 2.7, mag 1.2), and mild CURLY on chronic CKD3a. A COVID swab was negative. Chest x-ray was concerning for bilateral lobe infiltrate and possible vascular congestion. A follow-up CT of the chest revealed right lower lobe patchy consolidations consistent with pneumonia. His left eye is injected and painful with some drainage noted. Electrolyte abnormalities were treated and resolved. Patient will continue moxifloxin for conjunctivitis x 7 days. Normal White blood cell count, not requiring oxygen at the time of discharge. Was on Azithromycin and Rocephin while hospitalized. Will be discharged home on Augmentin 500/125mg BID x 7 days, and 4 days of Azithromycin 250mg daily. I have provided him Tessalon Perles, and promethazine/DM for cough to use as needed. He is to resume all home medications exception of change in antibiotics. Viral testing was negative. He is to return if any worsening signs or symptoms. Close follow up with PCP 5-7 days who will address improvement of his Pneumonia and also thyroid studies. Status at Discharge Functional status at discharge: uses cane/walker Time Spent with Patient Time attestation: Total time spent providing and/or coordinating discharge services: Time spent: greater than 30 minutes Exam Narrative Exam Narrative: General: Patient is alert, and oriented to person, place and time with normal affect, proper hygiene Skin: no visible rashes, or ulcers Head: atraumatic, acephalic Eyes: PERRLA, no nystagmus present, conjunctiva clear, no scleral icterus Heart: Normal rate and rhythm, no murmurs/rubs/gallops Lungs: no audible wheezes, crackles and diminished breath sounds all lung carrion Abdomen: Normal audible bowel sounds, no distension, No palpable masses, no organomegaly, no rebound/guarding/ or rigidity Neuro: CN II-X grossly intact Constitutional Vital Signs, click to edit/add: Last Vital Signs Temp 98.0 F 07/20/23 04:10 Pulse 88 07/20/23 06:00 Resp 18 07/20/23 04:10 BP 126/75 07/20/23 04:10 Pulse Ox 98 12/10/23 04:45 O2 Del Method Room Air 07/20/23 04:45 O2 Flow Rate 2 07/16/23 16:13 DS: Data Data Completed and Pending Labs on day of discharge: Labs from last 24 hours 07/20/23 07/19/23 07/19/23 04:15 19:58 16:31 WBC 7.4 RBC 3.44 L Hgb 9.9 L Hct 31.4 L MCV 91.3 MCH 28.8 MCHC 31.5 RDW 15.6 H Plt Count 277 MPV 10.0 Neut % (Auto) 67.6 Lymph % (Auto) 17.1 L [place] % (Auto) 8.8 Eos % (Auto) 4.9 Baso % (Auto) 0.9 Neut # (Auto) 5.0 Lymph # (Auto) 1.3 [place] # (Auto) 0.7 Eos # (Auto) 0.4 Baso # (Auto) 0.1 Abs Immat Gran (auto) 0.05 H Imm/Tot Granulo (auto) 0.7 H Sodium 136 Potassium 4.7 Chloride 101 Carbon Dioxide 31.6 Anion Gap 8.1 BUN 20.0 H Creatinine 1.24 Est GFR ( Amer) >60 Est GFR (Non-Af Amer) 59 L BUN/Creatinine Ratio 16.1 Glucose 157 H Calcium 8.5 Total Bilirubin 0.3 AST 37 ALT 13 L Alkaline Phosphatase 169 H Total Protein 7.5 Albumin 1.7 L Globulin 5.8 Albumin/Globulin Ratio 0.3 POC Glucose 145 H 142 H 07/19/23 11:56 WBC RBC Hgb Hct MCV MCH MCHC RDW Plt Count MPV Neut % (Auto) Lymph % (Auto) [place] % (Auto) Eos % (Auto) Baso % (Auto) Neut # (Auto) Lymph # (Auto) [place] # (Auto) Eos # (Auto) Baso # (Auto) Abs Immat Gran (auto) Imm/Tot Granulo (auto) Sodium Potassium Chloride Carbon Dioxide Anion Gap BUN Creatinine Est GFR ( Amer) Est GFR (Non-Af Amer) BUN/Creatinine Ratio Glucose Calcium Total Bilirubin AST ALT Alkaline Phosphatase Total Protein Albumin Globulin Albumin/Globulin Ratio POC Glucose 166 H Preliminary micro results at discharge 07/17/23 17:35 Sputum Culture - Preliminary Sputum - Expectorated Sputum 07/16/23 14:35 - Preliminary Blood NO GROWTH AT 36-48 HOURS. FINAL TO FOLLOW. 07/16/23 14:30 Blood Culture Result 1 - Preliminary Blood NO GROWTH AT 36-48 HOURS. FINAL TO FOLLOW. Discharge Plan Discharge Disposition: Home, Self-Care Condition: Fair Discharge Medications: New benzonatate 100 mg Capsule 200 mg PO Q8H 5 Days Qty: 30 0RF moxifloxacin 0.5 % Drops 1 drp ophthalmic (eye) TID 7 Days Qty: 3 0RF azithromycin [Zithromax] 250 mg tablet 250 mg PO DAILY 4 Days Qty: 4 0RF promethazine-DM 6.25-15 mg/5 mL syrup 5 ml PO Q8H PRN (Reason: cough) 3 Days Qty: 118 0RF amoxicillin-pot clavulanate [Augmentin] 500-125 mg tablet 1 tab PO Q12H 7 Days Qty: 14 0RF Continued atorvastatin 40 mg tablet 40 mg PO BEDTIME esomeprazole magnesium 40 mg capsule,delayed release(DR/EC) 40 mg PO Q24H gabapentin 100 mg capsule 100 mg PO BID hydroxyzine HCl 25 mg tablet 25 mg PO QID PRN (Reason: nausea and vomiting) insulin glargine [Lantus Solostar U-100 Insulin] 100 unit/mL (3 mL) insulin pen 40 unit SUBCUT DAILY isosorbide mononitrate 30 mg tablet extended release 24 hr 30 mg PO DAILY levothyroxine 200 mcg tablet 200 mcg PO DAILY liothyronine 5 mcg tablet 5 mcg PO DAILY lisinopril 40 mg tablet 40 mg PO DAILY sertraline 100 mg tablet 100 mg PO DAILY oxycodone-acetaminophen 5-325 mg tablet 1 tab PO QID PRN (Reason: pain) Rx Instructions: per refill hx: last filled 06/18/23 for QTY 60 for 15 days ropinirole 0.5 mg tablet 0.5 mg PO BEDTIME Discontinued cefdinir 300 mg capsule 300 mg PO BID Rx Instructions: per refill hx: filled 07/11/23 for QTY 20 for 10 days supply Activity: increase activity as tolerated Diet: diabetic diet Patient Instructions: Benzonatate (By mouth), Promethazine (By mouth), Dextromethorphan (By mouth), Amoxicillin/Clavulanate Potassium (By mouth), Azithromycin (By mouth), Moxifloxacin (Into the eye), Pneumonia (DC), Conjunctivitis (ED) Activity Restrictions/Additional Instructions: - Discuss hypothyroid management w/ PCP. TSH elevated at 7.923 Forms: Portal Instructions Follow Up Appointments: please call dr castellanos office on friday and schedule a follow up for within 5 to 7 days. [phone]
[2023-07-20] MEDS: GUAIFENESIN 600 MG TAB.ER.12H PO (08:42)
[2023-07-20] MEDS: L. ACIDOPHILUS/L.BULGARICUS 1 PACKET GRAN.PACK PO (08:42)
[2023-07-20] MEDS: LIOTHYRONINE SODIUM 5 MCG TABLET PO (08:42)
[2023-07-20] MEDS: ISOSORBIDE MONONITRATE 30 MG TAB.ER.24H PO (08:42)
[2023-07-20] MEDS: MAGNESIUM OXIDE 400 MG TABLET PO (08:42)
[2023-07-20] MEDS: GABAPENTIN 100 MG CAPSULE PO (08:42)
[2023-07-20] MEDS: LISINOPRIL 20 MG TABLET PO (08:42)
[2023-07-20] MEDS: OMEPRAZOLE 40 MG CAPSULE.DR PO (08:42)
[2023-07-20] MEDS: SERTRALINE HCL 100 MG TABLET PO (08:42)
[2023-07-20] MEDS: INSULIN DETEMIR 300 UNIT/3 ML INSULN.PEN 30 UNIT SUBQ (08:43)
[2023-07-20] MEDS: IPRATROPIUM/ALBUTEROL SULFATE 3 ML AMPUL.NEB IH (10:05)
[2023-07-20 11:23] LABS: Glucometer 165 mg/dL (74-106)
[2023-07-20 11:54] LABS: C. Difficile PCR NEGATIVE (NEGATIVE)
--- NOTE | 2023-07-20 13:52 | PC.NURSE ---
Kaveh Knutson [phone]
--- OUTSIDE RECORDS SUMMARY | 2023-07-30 02:05 | XMS_ITS | CCD ---
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 Professor Name Role Phone MICHELJEFF HARRIS Primary Care Physician MD Ayden Freeman Primary Care Provider Al MD Mary Jane Campbell Admit Provider MD Sarah Osuna Other Provider MD Xin Phan Attending Provider DO Jair Gabriel Emergency Provider MD Luke Moran Admit Provider MD Lupe Hernandez Attending Provider DO Ramesh Byrd Emergency Provider PROVIDER, UNKNOWN Admitting Unavailable PROVIDER, UNKNOWN Attending Unavailable PROVIDER, UNKNOWN Admitting Unavailable PROVIDER, UNKNOWN Attending Unavailable PROVIDER, UNKNOWN Admitting Unavailable PROVIDER, UNKNOWN Attending Unavailable PROVIDER, UNKNOWN Admitting Unavailable PROVIDER, UNKNOWN Attending Unavailable Unavailable Primary Care Provider Unavailju FREEMAN, DR AYDEN Haney Consulting Unavailable LYDIA, DR AYDEN Haney Primary Care Unavailable DAVE ., DR PORSHA Winn Attending Unavailable DAVE ., DR PORSHA Winn Admitting Unavailable ZIEBER, DR CAROL Huffman Consulting Unavailable LYDIA, DR AYDEN Haney Attending Unavailable LYDIA, DR AYDEN Haney Admitting Unavailable LYDIA, DR AYDEN Haney Primary Care Unavailable LYDIA, DR AYDEN Haney Consulting Unavailable GRECHNY ., JOS EJUAN US Consulting UnavailXIN Tavares Consulting Unavailable DARAMOLJEMMA Haney Consulting Unavailable LYDIA, DR AYDEN Haney Consulting Unavailable LYDIA, DR AYDEN Haney Primary Care Unavailable LYDIA, DR AYDEN Haney Attending Unavailable LYDIA, DR AYDEN Haney Admitting Unavailable LYDIA, DR AYDEN Haney Consulting Unavailable LYDIA, DR AYDEN Haney Primary Care Unavailable LYDIA, DR AYDEN Haney Attending Unavailable LYDIA, DR AYDEN Haney Admitting Unavailable LYDIA, DR AYDEN Haney Primary Care Unavailable APLDALILA, VICK Lerner Attending Unavailable APLING, VICK Lerner Admitting Unavailable ZIEBER, DR CAROL Huffman Consulting Unavailable HAY ., DR BUTT Attending Unavailable MEKA ., DR BUTT Admitting Unavailable LYDIA, DR AYDEN Haney Primary Care Unavailable MEKA ., DR BUTT Consulting Unavailable ABBIE AMBROCIO Consulting Unavailable MATTHEW, DR MASON Huffman Consulting Unavailable MATTHEW, DR MASON Huffman Attending Unavailable MATTHEW, DR MASON Huffman Admitting Unavailable LYDIA, DR AYDEN Haney Primary Care Unavailable AHDOOT, JENNIFER Consulting Unavailable BROWN, ROSELIA Consulting Unavailable PEDRAZA, GITiffany Consulting Unavailable CHIKIS ., HINA Consulting Unavailable LYDIA, DR AYDEN Haney Primary Care Unavailable CHIKIS ., HINA Attending Unavailable CHIKIS ., HINA Admitting Unavailable LYDIA, DR AYDEN Haney Primary Care Unavailable CHIKIS ., HINA Attending Unavailable CHIKIS ., HINA Admitting Unavailable Ramesh Byrd Attending Unavailable Ramesh Byrd Admitting Unavailable Lydia, Ayden Primary Care Unavailable Allergies Allergy Classification Reported Allergen(s) Allergy Type Date of Onset Reaction(s) Facility (8 sources) metFORMIN; Translations: [metformin] Drug Allergy 2 [facility] (6 sources) Prochlorperazine; Translations: [prochlorperazine] Drug Allergy 2 [facility] (2 sources) Prochlorperazine Drug Allergy [facility] Repository Medications Current Medications Medication Drug Class(es) Dates Sig (Normalized) Sig (Original) acetaminophen 500 mg oral tablet (5 sources) Start: 04-04-2022 take 1000 mg by mouth every six hours Acetaminophen Active 1000 MG PO Q6H 0 April 04, 2022 12:00am Start: 04-04-2022 take 1000 mg by mout h every six hours Acetaminophen Active 1000 MG PO Q6H 0 April 04, 2022 12:00am Start: 04-04-2022 take 1000 mg by mout h every six hours Acetaminophen Active 1000 MG PO Q6H 0 April 04, 2022 12:00am [id number] 200 actuat albuterol 0.09 mg/actuat metered dose inhaler (5 sources) beta2-Adrenergic Agonist Start: 03-14-2022 take 1 puff(s) by inhalation every four hours Albuterol Sulfate Active 2 PUFF INHALATION Every 4 hours March 14, 2022 12:00am atorvastatin 40 mg oral tablet (5 sources) HMG-CoA Reductase Inhibitor Start: 07-27-2020 take 40 mg by mouth at bedtime Atorvastatin Active 40 MG PO Bedtime July 27, 2020 1:00am gabapentin 100 mg oral capsule (20 sources) Anti-epileptic Agent Start: 04-04-2022 take 200 mg by mouth three times daily Gabapentin Active 200 MG PO Three times daily 0 April 04, 2022 1:12pm Start: 04-04-2022 take 200 mg by mouth three times daily Gabapentin Active 200 MG PO Three times daily 0 April 04, 2022 1:12pm Start: 04-04-2022 take 200 mg by mouth three times daily Gabapentin Active 200 MG PO Three times daily 0 April 04, 2022 1:12pm Start: 03-14-2022 End: 04-09-2022 take 100 mg by mouth twice daily Gabapentin Discontinued 100 MG PO Twice daily March 14, 2022 12:00am April 09, 2022 12:27pm Start: 07-20-2020 End: 03-14-2022 take 300 mg by mouth three times daily Gabapentin Discontinued 300 MG PO Three times daily August 10, 2020 4:48pm March 14, 2022 2:41am Insulin Aspart U-100 (Novolog Flexpen U-100 Insulin) 100 unit/mL (3 mL) Insulin Pen (5 sources) Start: 04-05-2022 Insulin Aspart U-100 (Novolog Flexpen U-100 Insulin) 100 unit/mL (3 mL) Insulin Pen Active 0 UNITS SUBCUT Before meals and at bedtime 0 April 05, 2022 12:00am 3 ml insulin detemir 100 unt/ml pen injector (5 sources) Insulin Analog Start: 03-16-2022 Insulin Detemi r U-100 (Levemir Flextouch U100 Insulin) 100 unit/mL (3 mL) Insulin Pen Active 40 UNIT SUBCUT Daily with breakfast 08 09March 16, 2022 12:00am 24 hr isosorbide mononitrate 30 mg extended release oral tablet (5 sources) Nitrate Vasodilator Start: 03-14-2022 take 30 mg by mouth once daily Isosorbide Mononitrate Active 30 MG PO Daily March 14, 2022 12:00am levothyroxine sodium 0.2 mg oral tablet (15 sources) l-Thyroxine Start: 04-09-2022 Levothyroxine (Synthroid) 200 mcg Tablet Active 250 MCG PO Daily April 09, 2022 12:00am Start: 04-09-2022 Levothyroxine (Synthroid) 200 mcg Tablet Active 250 MCG PO Daily April 09, 2022 12:00am Start: 04-09-2022 Levothyroxine (Synthroid) 200 mcg Tablet Active 250 MCG PO Daily April 09, 2022 12:00am Start: 07-20-2020 End: 04-09-2022 take 200 ug by mouth once daily Levothyroxine Discontinued 200 MCG PO Daily at 629July 20, 2020 1:00am April 09, 2022 12:27pm Start: 07-20-2020 End: 07-20-2020 take 1 tablet by mouth once daily Levothyroxine (Synthroid) 25 mcg Tablet Discontinued 25 MCG PO Daily July 20, 2020 1:00am July 20, 2020 6:14pm 3 ml liraglutide 6 mg/ml pen injector (5 sources) GLP-1 Receptor Agonist Start: 04-04-2022 inject 0.6 mg by subcutaneous injection once daily, then inject 1.2 mg by subcutaneous injection once daily, then inject 1.8 mg by subcutaneous injection once daily Liraglutide (Victoza 3-Bora) 0.6 mg/0.1 mL (18 mg/3 mL) pen injector Active 1.8 MG SUBCUT Daily April 04, 2022 12:00am start 0.6 mg sq daily x 1 week then 1.2 mg sq daily x 1 week then 1.8 mg sq daily thereafter Start: 04-04-2022 inject 0.6 mg by sub cutaneous injection once daily, then inject 1.2 mg by subcutaneous injection once daily, then inject 1.8 mg by subcutaneous injection once daily Liraglutide (Victoza 3-Bora) 0.6 mg/0.1 mL (18 mg/3 mL) pen injector Active 1.8 MG SUBCUT Daily April 04, 2022 12:00am start 0.6 mg sq daily x 1 week then 1.2 mg sq daily x 1 week then 1.8 mg sq daily thereafter Start: 04-04-2022 inject 0.6 mg by sub cutaneous injection once daily, then inject 1.2 mg by subcutaneous injection once daily, then inject 1.8 mg by subcutaneous injection once daily Liraglutide (Victoza 3-Bora) 0.6 mg/0.1 mL (18 mg/3 mL) pen injector Active 1.8 MG SUBCUT Daily April 04, 2022 12:00am start 0.6 mg sq daily x 1 week then 1.2 mg sq daily x 1 week then 1.8 mg sq daily thereafter lisinopril 40 mg oral tablet (10 sources) Angiotensin Converting Enzyme Inhibitor Start: 03-14-2022 take 40 mg by mouth once daily Lisinopril Active 40 MG PO Daily March 14, 2022 12:00am Start: 07-20-2020 End: 08-07-2020 take 20 mg by mouth twice daily Lisinopril Discontinued 20 MG PO Twice daily July 20, 2020 1:00am August 07, 2020 3:01pm rOPINIRole 5 mg oral tablet (5 sources) Nonergot Dopamine Agonist Start: 03-14-2022 take 0.5 mg by mouth once daily at bedtime Ropinirole Active 0.5 MG PO Daily at bedtime March 14, 2022 12:00am administer 1-3 hours before bedtime sertraline 100 mg oral tablet (5 sources) Serotonin Reuptake Inhibitor Start: 07-26-2020 take 1 tablet by mouth at bedtime Sertraline (Zoloft) 100 mg tablet Active 100 MG PO Bedtime July 26, 2020 1:00am Completed/Discontinued Medications Medication Drug Class(es) Dates Sig (Normalized) Sig (Original) acetaminophen 300 mg / codeine phosphate 30 mg oral tablet (5 sources) Opioid Agonist Start: 04-02-2022 End: 04-09-2022 take 1 tablet by mouth every six hours Acetaminophen-Cod eine Discontinued 1 TAB PO Q6H April 02, 2022 12:00am April 09, 2022 12:27pm acetaminophen 325 mg / HYDROcodone bitartrate 5 mg oral tablet (5 sources) Opioid Agonist Start: 07-27-2020 End: 08-10-2020 take 1 tablet by mouth four times daily Hydrocodone-Aceta minophen (Valmy) 5-325 mg Tablet Discontinued 1 TAB PO Four times daily July 27, 2020 1:00am August 10, 2020 4:49pm baclofen 10 mg oral tablet (5 sources) gamma-Aminobutyric Acid-ergic Agonist Start: 07-26-2020 End: 08-10-2020 take 10 mg by mouth three times daily Baclofen Discontinued 10 MG PO Three times daily July 26, 2020 1:00am August 10, 2020 3:06pm ceFAZolin 200 mg/ml injectable solution (5 sources) Cephalosporin Antibacterial Start: 08-01-2020 End: 08-10-2020 take 2 g intravenously every eight hours Cefazolin Discontinued 2 GM IV Q8H 105 35 August 01, 2020 1:00am August 10, 2020 3:06pm celecoxib 200 mg oral capsule (10 sources) Nonsteroidal Anti-inflammatory Drug Start: 08-07-2020 End: 03-16-2022 take 1 capsule by mouth at bedtime Celecoxib (Celebrex) 200 mg capsule Discontinued 200 MG PO Bedtime August 07, 2020 1:00am March 16, 2022 9:32am Start: 07-20-2020 End: 08-02-2020 take 200 mg by mouth twice daily Celecoxib Discontinued 200 MG PO Twice daily July 20, 2020 1:00am August 02, 2020 2:52pm clotrimazole 10 mg/ml topical cream (5 sources) Azole Antifungal Start: 03-14-2022 End: 04-09-2022 Clotrimazole Discontinued 1 APPLIC TOPICAL Daily March 14, 2022 12:00am April 09, 2022 12:27pm colchicine 0.6 mg oral capsule (5 sources) Start: 07-20-2020 End: 07-20-2020 take 0.6 mg by mouth twice daily Colchicine (Gout) Discontinued 0.6 MG PO Twice daily July 20, 2020 1:00am July 20, 2020 6:15pm dexamethasone 6 mg oral tablet (5 sources) Corticosteroid Start: 03-16-2022 End: 04-02-2022 take 6 mg by mouth once daily Dexamethasone Discontinued 6 MG PO Daily 01 14March 16, 2022 12:00am April 02, 2022 6:07pm esomeprazole 40 mg delayed release oral capsule (5 sources) Proton Pump Inhibitor Start: 03-14-2022 End: 04-02-2022 take 40 mg by mouth once daily Esomeprazole Magnesium Discontinued 40 MG PO Daily March 14, 2022 12:00am April 02, 2022 6:07pm hydroCHLOROthiazide 25 mg oral tablet (15 sources) Thiazide Diuretic Start: 03-14-2022 End: 03-14-2022 Hydrochlorothiazide Discontinued MG TABLET March 14, 2022 12:00am March 14, 2022 2:54am Start: 07-27-2020 End: 03-16-2022 take 25 mg by mouth once daily Hydrochlorothiazide Discontinued 25 MG PO Daily March 14, 2022 12:00am March 14, 2022 2:54am hydrOXYzine hydrochloride 25 mg oral tablet (5 sources) Antihistamine Start: 03-14-2022 End: 04-09-2022 take 25 mg by mouth once daily at bedtime Hydroxyzine Hcl Discontinued 25 MG PO Daily at bedtime March 14, 2022 12:00am April 09, 2022 12:27pm 3 ml insulin lispro 100 unt/ml pen injector (5 sources) Insulin Analog Start: 03-16-2022 End: 04-09-2022 inject 1 dose by subcutaneous injection at bedtime Insulin Lispro (Humalog Kwikpen Insulin) 100 unit/mL Insulin Pen Discontinued 1 sliding scale dose SUBCUT Before meals and at bedtime 5 March 16, 2022 12:00am April 09, 2022 12:27pm Sliding Scale ACHS nystatin [id number] unt/ml oral suspension (10 sources) Polyene Antifungal Start: 03-14-2022 End: 04-09-2022 Nystatin Discontinued SUSPENSION March 14, 2022 12:00am March 14, 2022 2:54am pioglitazone 30 mg oral tablet (5 sources) Peroxisome Proliferator Receptor alpha Agonist, Peroxisome Proliferator Receptor gamma Agonist, Thiazolidinedione Start: 03-14-2022 End: 04-09-2022 take 30 mg by mouth once daily Pioglitazone Discontinued 30 MG PO Daily March 14, 2022 12:00am April 09, 2022 12:27pm predniSONE 10 mg oral tablet (5 sources) Start: 03-14-2022 End: 03-16-2022 take 20 mg by mouth once daily Prednisone Discontinued 20 MG PO Daily March 14, 2022 12:00am March 16, 2022 9:32am traZODone hydrochloride 50 mg oral tablet (5 sources) Serotonin Reuptake Inhibitor Start: 03-14-2022 End: 04-02-2022 take 50 mg by mouth once daily at bedtime Trazodone Discontinued 50 MG PO Daily at bedtime March 14, 2022 12:00am April 02, 2022 6:08pm triamcinolone acetonide 1 mg/ml topical lotion (5 sources) Corticosteroid Start: 08-02-2020 End: 04-09-2022 Triamcinolone Acetonide Discontinued 1 APPLIC TOPICAL Twice daily 0 August 02, 2020 1:00am April 09, 2022 12:27pm zinc sulfate 220 mg oral capsule (5 sources) Start: 03-16-2022 End: 04-02-2022 Zinc Sulfate (Orazinc) 50 mg zinc (220 mg) Capsule Discontinued 220 MG PO Daily 10 03March 16, 2022 12:00am April 02, 2022 6:08pm Problems Active Problems Problem Classification Problem Date Documented Da te Episodic/Chronic Acute and unspecified renal failure (9 sources) Injury of kidney; Translations: [Acute kidney failure, unspecified] 03-14-2022 Episodic Bacterial infection; unspecified site (5 sources) Bacteremia due to Staphylococcus aureus; Translations: [Bacteremia] 08-15-2020 Episodic Cardiac dysrhythmias (5 sources) Paroxysmal atrial fibrillation; Translations: [Paroxysmal atrial fibrillation] 08-15-2020 Chronic Chronic kidney disease (10 sources) Chronic kidney disease stage 3; Translations: [Stage 3 chronic kidney disease] Onset: 05-20-2022 03-14-2022 Chronic Chronic kidney disease (1 source) Chronic kidney disease; Translations: [CHRONIC KIDNEY DISEASE STAGE 3A] Onset: 01-28-2022 Congestive heart failure; nonhypertensive (9 sources) Congestive heart failure; Translations: [Heart failure, unspecified] 04-02-2022 Chronic Coronary atherosclerosis and other heart disease (1 source) Atherosclerotic heart disease of [place] coronary artery without angina pectoris; Translations: [ASHD MOHEGAN CA W/O ANGINA PECTORIS] Onset: 05-20-2022 Chronic Diabetes mellitus with complications (6 sources) Type 2 diabetes mellitus with hyperglycemia; Translations: [Type 2 diabetes mellitus with diabetic chronic kidney disease] Onset: 05-20-2022 Chronic Diabetes mellitus without complication (19 sources) Diabetes mellitus; Translations: [Type 2 diabetes mellitus without complications] Onset: 02-05-2022 03-14-2022 Chronic Diabetes mellitus without complication (9 sources) Hyperglycemia; Translations: [Hyperglycemia, unspecified] 03-14-2022 Episodic Diseases of white blood cells (5 sources) Leukocytosis; Translations: [Elevated white blood cell count, unspecified] 07-20-2020 Chronic Disorders of lipid metabolism (1 source) Hyperlipidemia, unspecified; Translations: [HYPERLIPIDEMIA UNSPECIFIED] Onset: 12-22-2022 Chronic E Codes: Fall (12 sources) Fall; Translations: [Unspecified fall, initial encounter] Onset: 01-21-2022 04-02-2022 Episodic Esophageal disorders (1 source) Gastro-esophageal reflux disease without esophagitis; Translations: [GERD WITHOUT ESOPHAGITIS] Onset: 05-20-2022 Chronic Essential hypertension (10 sources) Hypertensive disorder; Translations: [Essential (primary) hypertension] Onset: 12-22-2022 03-14-2022 Chronic Fever of unknown origin (5 sources) Fever; Translations: [Fever, unspecified] 07-20-2020 Episodic Fluid and electrolyte disorders (19 sources) Hyponatremia; Translations: [Hypo-osmolality and hyponatremia] 03-14-2022 Episodic Hypertension with complications and secondary hypertension (1 source) Hypertensive chronic kidney disease with stage 1 through stage 4 chronic kidney disease, or unspecified chronic kidney disease; Translations: [HTN CKD W/STAGE 1-4 CKD/UNS CKD] Onset: 05-20-2022 Chronic Immunity disorders (9 sources) Hypergammaglobulinemi a; Translations: [Hypergammaglobulinem ia, unspecified] 08-15-2020 Chronic Malaise and fatigue (15 sources) Asthenia; Translations: [Weakness] Onset: 01-28-2022 08-07-2020 Episodic Mood disorders (1 source) Major depressive disorder, single episode, unspecified; Translations: [NAHEED DEPRESS D/O SINGLE EPIS UNS] Onset: 05-20-2022 Chronic Osteoarthritis (1 source) Unilateral primary osteoarthritis, left hip; Translations: [UNI PRIM OSTEOARTHRITIS LT HIP] Onset: 05-29-2022 Chronic Other aftercare (1 source) Other halfway (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; Translations: [OTH SALESPERSON NEW CARS CURRENT DRUG THERAPY] Onset: 12-22-2022 Episodic Other circulatory disease (1 source) Low blood pressure; Translations: [Hypotension, unspecified] Episodic Other gastrointestinal disorders (5 sources) Abdominal mass; Translations: [Intra-abdominal and pelvic swelling, mass and lump, unspecified site] 08-15-2020 Episodic Other hematologic conditions (5 sources) ESR raised; Translations: [Elevated erythrocyte sedimentation rate] 08-07-2020 Episodic Other liver diseases (1 source) Unspecified cirrhosis of liver; Translations: [UNSPECIFIED CIRRHOSIS OF LIVER] Onset: 05-20-2022 Chronic Other liver diseases (1 source) Fatty (change of) liver, not elsewhere classified; Translations: [FATTY CHANGE LIVER NEC] Onset: 05-20-2022 Chronic Other lower respiratory disease (5 sources) Hypoxemia; Translations: [Hypoxemia] 04-08-2022 Episodic Other lower respiratory disease (4 sources) Hypoxemia; Translations: [Hypoxemia] 04-09-2022 Episodic Other nutritional; endocrine; and metabolic disorders (5 sources) Morbid obesity; Translations: [Morbid (severe) obesity due to excess calories] 08-15-2020 Chronic Other nutritional; endocrine; and metabolic disorders (5 sources) Hypomagnesemia; Translations: [Hypomagnesemia] 08-07-2020 Chronic Other nutritional; endocrine; and metabolic disorders (5 sources) Morbid (severe) obesity due to excess calories; Translations: [Morbid obesity] Onset: 01-28-2022 04-09-2022 Chronic Other nutritional; endocrine; and metabolic disorders (1 source) Body mass index (BMI) 45.0-49.9, adult; Translations: [BODY MASS INDEX BMI 45.0-49.9 ADULT] Onset: 01-28-2022 Chronic Other nutritional; endocrine; and metabolic disorders (1 source) Body mass index (BMI) 50.0-59.9, adult; Translations: [BODY MASS INDEX BMI 50.0-59.9 ADULT] Onset: 01-21-2022 Chronic Other screening for suspected conditions (not mental disorders or infectious disease) (5 sources) Raised TSH level; Translations: [Other specified abnormal findings of blood chemistry] Onset: 12-22-2022 04-12-2022 Episodic Other skin disorders (5 sources) Eruption; Translations: [Rash and other nonspecific skin eruption] 08-15-2020 Episodic Mireya-; endo-; and myocarditis; cardiomyopathy (except that caused by tuberculosis or sexually transmitted disease) (5 sources) Staphylococcal endocarditis; 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 subacute infective endocarditis] 08-15-2020 Episodic Residual codes; unclassified (5 sources) Obstructive sleep apnea syndrome; Translations: [Obstructive sleep apnea (adult) (pediatric)] 04-08-2022 Chronic Residual codes; unclassified (5 sources) Obstructive sleep apnea (adult) (pediatric); Translations: [Obstructive sleep apnea (adult)(pediatric)] Onset: 05-20-2022 04-09-2022 Chronic Residual codes; unclassified (5 sources) Unable to perform personal care activity; Translations: [Other specified health status] 04-02-2022 Episodic Residual codes; unclassified (4 sources) Other specified health status; Translations: [Other specified conditions influencing health status] 04-09-2022 Episodic Spondylosis; intervertebral disc disorders; other back problems (9 sources) Backache; Translations: [Dorsalgia, unspecified] Onset: 02-01-2022 08-15-2020 Episodic Superficial injury; contusion (12 sources) Abrasion, elbow area; Translations: [Abrasion of unspecified elbow, initial encounter] Onset: 01-21-2022 04-02-2022 Episodic Thyroid disorders (14 sources) Hypothyroidism; Translations: [Hypothyroidism, unspecified] Onset: 05-20-2022 04-08-2022 Chronic Unclassified (9 sources) Failure to thrive; Translations: [Failure to thrive] 04-08-2022 Unclassified (1 source) LOW BACK PAIN, UNSPECIFIED; Translations: [LOW BACK PAIN, UNSPECIFIED] Onset: 02-05-2022 Unclassified (2 sources) COUGH, UNSPECIFIED; Translations: [COUGH, UNSPECIFIED] Onset: 01-28-2022 Unclassified (1 source) CONTACT W/AND (SUSP) EXPOS COVID-19; Translations: [CONTACT W/AND (SUSP) EXPOS COVID-19] Onset: 01-28-2022 Urinary tract infections (5 sources) Acute urinary tract infection; Translations: [Urinary tract infection, site not specified] 07-20-2020 Episodic Viral infection (9 sources) Disease caused by 2019-nCoV; Translations: [COVID-19] 03-14-2022 Episodic Past or Other Problems Problem Classification Problem Date Documented Da te Episodic/Chronic Abdominal pain (1 source) Unspecified abdominal pain; Translations: [UNSPECIFIED ABDOMINAL PAIN] Onset: 01-28-2022 Episodic Acute bronchitis (1 source) Acute bronchitis, unspecified; Translations: [ACUTE BRONCHITIS UNSPECIFIED] Onset: 01-28-2022 Episodic Genitourinary symptoms and ill-defined conditions (5 sources) Blood in urine; Translations: [Hematuria, unspecified] Onset: 04-12-2022 04-12-2022 Episodic Nonspecific chest pain (1 source) Other chest pain; Translations: [OTHER CHEST PAIN] Onset: 01-28-2022 Episodic Other aftercare (1 source) [facility] (current) use of insulin; Translations: [SALESPERSON NEW CARS CURRENT USE OF INSULIN] Onset: 05-20-2022 Episodic Other connective tissue disease (4 sources) Iliotibial band syndrome, left leg; Translations: [ILIOTIBIAL BAND SYNDROME LEFT LEG] Onset: 05-29-2022 Episodic Other connective tissue disease (1 source) Other specified soft tissue disorders; Translations: [OTHER SPEC SOFT TISSUE DISORDERS] Onset: 01-28-2022 Episodic Other injuries and conditions due to external causes (4 sources) Other specified injuries of head, initial encounter; Translations: [OTH SPEC INJURIES HEAD INITIAL ENC] Onset: 05-17-2022 Episodic Other injuries and conditions due to external causes (1 source) History of falling; Translations: [HISTORY OF FALLING] Onset: 01-28-2022 Episodic Other lower respiratory disease (1 source) Shortness of breath; Translations: [SHORTNESS OF BREATH] Onset: 01-28-2022 Episodic Other non-traumatic joint disorders (3 sources) Pain in left knee; Translations: [PAIN IN LEFT KNEE] Onset: 01-18-2022 Episodic Residual codes; unclassified (1 source) Edema, unspecified; Translations: [EDEMA UNSPECIFIED] Onset: 01-28-2022 Episodic Unclassified (1 source) COUGH, UNSPECIFIED; Translations: [COUGH, UNSPECIFIED] Onset: 01-24-2022 Results Test Name Value Interpretation Reference Range Facil ity CBC AUTO DIFFon 12-19-2022 BASO # 0.1 103/ul Normal 0.0-0.1 [facility] Comment on above: Performed By: #### T , BMP #### [facility] [address] [place] [address] Dr. Ladan Diehl Basophils/100 WBC (Bld) 1.2 % Normal 0.2-2.0 [facility] Comment on above: Performed By: #### T SH, BMP #### [facility] [address] [place] [address] Dr. Ladan Diehl EO # 0.4 103/ul Normal 0.0-0.7 [facility] Comment on above: Performed By: #### T SH, BMP #### [facility] [address] [place] [address] Dr. Ladan Dihel Eosinophils/100 WBC (Bld) 4.9 % Normal 0.9-7.0 [facility] Comment on above: Performed By: #### T SH, BMP #### [facility] [address] [place] [address] Dr. Ladan Diehl Erythrocyte distribution wid th (RBC) [Ratio] 14.8 % Normal 11.0-15.0 [facility] Comment on above: Performed By: #### T SH, BMP #### [facility] Laboratory [address] [place] [address] Dr. Ladan Diehl Hematocrit (Bld) [Volume fraction] 36.7 % Critically low 42.0-54.0 The [facility] Comment on above: Performed By: #### T SH, BMP #### [facility] Laboratory [address] [place] [address] Dr. Ladan Diehl Hemoglobin (Bld) [Mass/Vol] 12.0 g/dL Critically low 14.0 -18.0 [facility] Comment on above: Performed By: #### T SH, BMP #### [facility] [address] [place] [address] Dr. Ladan Diehl IG # 0.01 10e3/ul Normal 0.00-0.03 [facility] Comment on above: Performed By: #### T SH, BMP #### [facility] Laboratory [address] [place] [address] Dr. Ladan Diehl IG % 0.1 % Normal 0.0-0.5 The [facility] ospital Comment on above: Performed By: #### T SH, BMP #### [facility] Laboratory [address] [address] [address] Ladan Diehl LYMPH # 2.0 103/ul Normal 1.2-3.8 [facility] ospital Comment on above: Performed By: #### T SH, BMP #### [facility] [address] [address] [address] Ladan Diehl Lymphocytes/100 WBC (Bld) 27.1 % Normal 20.5-60.0 [facility] Comment on above: Performed By: #### T SH, BMP #### [facility] [address] [address] [address] Ladan Diehl MANUAL DIFF REQ NO Normal [facility] Comment on above: Performed By: #### T SH, BMP #### [facility] [address] [place] [address] Dr. Ladan Diehl MCH (RBC) [Entitic mass] 29.6 pg Normal 25.9-34.0 [facility] Comment on above: Performed By: #### T SH, BMP #### [facility] [address] [place] [address] Dr. Ladan Diehl MCHC (RBC) [Mass/Vol] 32.7 g/dL Normal 29.9-35.2 [facility] Comment on above: Performed By: #### T SH, BMP #### [facility] [address] [place] [address] Dr. Ladan Diehl MCV (RBC) [Entitic vol] 90.6 fL Normal 80.0-94.0 [facility] Comment on above: Performed By: #### T SH, BMP #### [facility] [address] [address] [address] Ladan Diehl MONO # 0.8 103/ul Normal 0.3-0.8 [facility] Comment on above: Performed By: #### T SH, BMP #### [facility] [address] [address] [address] Ladan Diehl Monocytes/100 WBC (Bld) 10.4 % Normal 1.7-12.0 [facility] Comment on above: Performed By: #### T SH, BMP #### [facility] [address] [place] [address] Dr. Ladan Diehl NEUT # 4.2 103/ul Normal 1.4-6.5 The [facility] ospital Comment on above: Performed By: #### T SH, BMP #### [facility] [address] [place] [address] Dr. Ladan Diehl Neutrophils/100 WBC (Bld) 56.3 % Normal 43.0-75.0 [facility] Comment on above: Performed By: #### T SH, BMP #### [facility] [address] [place] [address] Dr. Ladan Diehl Platelet mean volume (Bld) [Entitic vol] 9.9 fL Normal 9.5-13.5 [facility] Comment on above: Performed By: #### T SH, BMP #### [facility] [address] [place] [address] Dr. Ladan Diehl PLT 227 103/ul Normal 150-450 The [facility] ostal Comment on above: Performed By: #### T SH, BMP #### [facility] [address] [place] [address] Dr. Ladan Diehl RBC 4.05 106/ul Critically low 4.70-6.10 [facility] Comment on above: Performed By: #### T SH, BMP #### [facility] [address] [place] [address] Dr. Ladan Diehl WBC 7.4 103/ul Normal 4.0-11.0 The [facility] ostal Comment on above: Performed By: #### T SH, BMP #### [facility] [address] [place] [address] Dr. Ladan Diehl FREE T3on 12-19-2022 FREE T3 2.07 pg/mlL Critically low 2.18-3.98 [facility] Comment on above: Performed By: #### T SH, BMP #### [facility] [address] [place] [address] Dr. Ladan Diehl FREE T4on 12-19-2022 Free T4 [Mass/Vol] 1.14 ng/dL Normal 0.76-1.46 [facility] Comment on above: Performed By: #### T SH, BMP #### [facility] [address] [address] [address] Ladan Diehl GLYCOHEMOGLOBIN A1Con 2022 ADA RECOMMENDATION SEE BELOW Normal [facility] Comment on above: Result Comment: ADA RECOMMENDED LIMIT 4.0 - 6.0 ADA THERAPEUTIC TARGET < 7.0 ACTION SUGGESTED > 7.0 Performed By: #### T SH, BMP #### [facility] [address] [address] [address] Ladan Diehl Glucose [Mass/Vol] 134 mg/dL Normal [facility] Comment on above: Performed By: #### T SH, BMP #### [facility] [address] [place] [address] Dr. Ladan Diehl HbA1c (Bld) [Mass fraction] 6.3 % Critically high 4.5 -6.2 [facility] Comment on above: Performed By: #### T SH, BMP #### [facility] [address] [place] [address] Dr. Ladan Diehl LIPID PROFILEon 12-19-2022 CHOL-HDL RATIO NORM SEE BELOW Normal [facility] Comment on above: Result Comment: 3.3 - 4.4 LOW RISK 4.4 - 7.1 AVERAGE RISK 7.1 - 11.0 MODERATE RISK >11.0 HIGH RISK Performed By: #### T SH, BMP #### [facility] [address] [place] [address] Dr. Ladan Diehl Cholesterol [Mass/Vol] 118 mg/dL Normal <=200 [facility] Comment on above: Performed By: #### T SH, BMP #### [facility] [address] [place] [address] Dr. Ladan Diehl Cholesterol in HDL [Mass/Vol] 43 mg/dL Normal 40-60 [facility] Comment on above: Performed By: #### T SH, BMP #### [facility] [address] [place] [address] Dr. Ladan Diehl Cholesterol in LDL [Mass/Vol] 48.8 mg/dL Normal [facility] Comment on above: Performed By: #### T SH, BMP #### [facility] [address] [place] [address] Dr. Ladan Diehl Cholesterol.total/Cholestero l in HDL [Mass ratio] 2.7 {ratio} Normal [facility] Comment on above: Performed By: #### T SH, BMP #### [facility] [address] [place] [address] Dr. Ladan Diehl HDL NORMAL > or = 60 mg/dl - LO W CARDIOVASCULAR RISK <40 mg/dl - HIGH CARDIOVASCULAR RISK Normal [facility] Comment on above: Performed By: #### T SH, BMP #### [facility] [address] [place] [address] Dr. Ladan Diehl LDL CALC NORMAL SEE BELOW Normal [facility] Comment on above: Result Comment: <100 mg/dl OPTIMAL 100 - 129 mg/dl NEAR OR ABOVE OPTIMAL 130 - 159 mg/dl BORDERLINE HIGH 160 - 189 mg/dl HIGH >190 mg/dl VERY HIGH Performed By: #### T SH, BMP #### [facility] [address] [place] [address] Dr. Ladan Diehl Triglyceride [Mass/Vol] 131 mg/dL Normal <=150 [facility] Comment on above: Performed By: #### T SH, BMP #### [facility] [address] [place] [address] Dr. Ladan Diehl VLDL CALC 26.2 mg/dL Normal [facility]spital Comment on above: Performed By: #### T SH, BMP #### [facility] [address] [place] [address] Dr. Ladan Diehl LIVER PROFILEon 12-19-2022 Albumin [Mass/Vol] 2.7 g/dL Critically low 3.4-5.0 [facility] Comment on above: Performed By: #### T SH, BMP #### [facility] [address] [place] [address] Dr. Ladan Diehl Albumin/Globulin [Mass ratio] 0.4 {ratio} Normal [facility] Comment on above: Performed By: #### T SH, BMP #### [facility] [address] [place] [address] Dr. Ladan Diehl ALP [Catalytic activity/Vol] 154 U/L Critically high 46 -116 [facility] Comment on above: Performed By: #### T SH, BMP #### [facility] [address] [address] [address] Ladan Diehl ALT [Catalytic activity/Vol] 25 U/L Normal 16-63 [facility] Comment on above: Performed By: #### T SH, BMP #### [facility] [address] [address] [address] Ladan Diehl AST [Catalytic activity/Vol] 38 U/L Critically high 15 -37 [facility] Comment on above: Performed By: #### T SH, BMP #### [facility] [address] [place] [address] Dr. Ladan Diehl BILI, CONJUGATED 0.2 mg/dL Normal 0.0-0.2 [facility] Comment on above: Performed By: #### T SH, BMP #### [facility] [address] [place] [address] Dr. Ladan Diehl Bilirubin [Mass/Vol] 0.8 mg/dL Normal 0.2-1.0 [facility] Comment on above: Performed By: #### T SH, BMP #### [facility] [address] [place] [address] Dr. Ladan Diehl Globulin (S) [Mass/Vol] 6.2 g/dL Normal [facility] Comment on above: Performed By: #### T SH, BMP #### [facility] [address] [address] [address] Ladan Diehl Protein [Mass/Vol] 8.9 g/dL Critically high 6.4-8.2 [facility] Comment on above: Performed By: #### T SH, BMP #### [facility] [address] [place] [address] Dr. Ladan Diehl MICROALBUMIN, RAND URon 05-3 mALB 25.4 mg/dL Normal <=30.0 [facility]ital Comment on above: Performed By: #### T SH, BMP #### [facility] [address] [place] [address] Dr. Ladan Diehl PROF CHEM 8 (BAS METB)on Anion gap [Moles/Vol] 10.7 mmol/L Normal [facility] Comment on above: Performed By: #### T SH, BMP #### [facility] [address] [place] [address] Dr. Ladan Diehl Calcium [Mass/Vol] 9.0 mg/dL Normal 8.5-10.1 [facility] Comment on above: Performed By: #### T SH, BMP #### [facility] [address] [place] [address] Dr. Ladan Diehl Chloride [Moles/Vol] 103 mmol/L Normal 98-107 [facility] Comment on above: Performed By: #### T SH, BMP #### [facility] [address] [place] [address] Dr. Ladan Diehl CO2 [Moles/Vol] 27.5 mmol/L Normal 21.0-32.0 [facility] Comment on above: Performed By: #### T SH, BMP #### [facility] [address] [place] [address] Dr. Ladan Diehl Creatinine [Mass/Vol] 1.29 mg/dL Normal 0.70-1.30 [facility] Comment on above: Performed By: #### T SH, BMP #### [facility] [address] [place] [address] Dr. Ladan Diehl EGFR-AF CAMEROONIAN >60 Normal >=60 [facility] Comment on above: Performed By: #### T SH, BMP #### [facility] [address] [place] [address] Dr. Ladan Diehl EGFR-NON AF CAMEROONIAN 56 mL/min/1.73m2 Critically low >=60 [facility] Comment on above: Performed By: #### T SH, BMP #### [facility] [address] [address] [address] Ladan Diehl Glucose [Mass/Vol] 108 mg/dL Critically high 74-106 [facility] Comment on above: Performed By: #### T SH, BMP #### [facility] [address] [address] [address] Ladan Diehl Potassium [Moles/Vol] 4.2 mmol/L Normal 3.5-5.1 [facility] Comment on above: Performed By: #### T SH, BMP #### [facility] [address] [address] [address] Ladan Diehl Sodium [Moles/Vol] 137 mmol/L Normal 136-145 [facility] Comment on above: Performed By: #### T SH, BMP #### [facility] [address] [place] [address] Dr. Ladan Diehl Urea nitrogen [Mass/Vol] 12.0 mg/dL Normal 7.0-18.0 [facility] Comment on above: Performed By: #### T SH, BMP #### [facility] [address] [place] [address] Dr. Ladan Diehl Urea nitrogen/Creatinine [Mass ratio] 9.3 mg/mg Normal [facility] Comment on above: Performed By: #### T SH, BMP #### [facility] [address] [place] [address] Dr. Ladan Diehl TSHon 12-19-2022 TSH 8.668 uIU/mL Critically high 0.358-3.740 [facility] Comment on above: Performed By: #### T SH, BMP #### [facility] [address] [place] [address] Dr. Ladan Diehl GLYCOHEMOGLOBIN A1Con 2021 ADA RECOMMENDATION SEE BELOW Normal [facility] Comment on above: Result Comment: ADA RECOMMENDED LIMIT 4.0 - 6.0 ADA THERAPEUTIC TARGET < 7.0 ACTION SUGGESTED > 7.0 Performed By: #### A 1C #### [facility] [address] [place] [address] Dr. Ladan Diehl Glucose [Mass/Vol] 140 mg/dL Normal [facility] Comment on above: Performed By: #### A 1C #### [facility] [address] [place], [place] [address] Dr. Ladan Diehl HbA1c (Bld) [Mass fraction] 6.5 % Critically high 4.5 -6.2 [facility] Comment on above: Performed By: #### A 1C #### [facility] [id number] Ladan Diehl CT CSPINE WO CONon 2 CT CSPINE WO CON EXAMINATION: CT CSPI NE WO CON HISTORY: UNSPECIFIED INJURY OF HEAD, INITIAL ENCOUNTER COMPARISON: No relevant comparison available. TECHNIQUE: Axial, Coronal, and Sagittal images were created without IV contrast. Dose reduction techniques were achieved by using automated exposure control and/or adjustment of mA and/or kV according to patient size and/or use of iterative reconstruction technique. FINDINGS: VERTEBRAL BODIES: Slight reversal of normal lordotic curvature. No fracture, spondylolisthesis, bone lesion. FACET JOINTS: No disruption or abnormal widening. CERVICAL DISCS: Mild narrowing C4-C5. Moderate narrowing C5-C6, C6-C7. CENTRAL CANAL: Suspect mild-moderate narrowing within lower cervical spine. PARASPINAL AREA: No visible mass. IMPRESSION: 1. No appreciable acute abnormality. 2. Multilevel mild to moderate degenerative changes. Electronically authenticated by: CAROL YIP Date: 2022-05-17 13:25 Normal [facility] CT HEAD WO CONon 05-17-2022 CT HEAD WO CON EXAMINATION: CT HEAD WO CON HISTORY: UNSPECIFIED INJURY OF HEAD, INITIAL ENCOUNTER ; posterior head injury after falling, blurred vision COMPARISON: CT head 03/01/2019 TECHNIQUE: Axial CT images were obtained without IV contrast. Dose reduction techniques were achieved by using automated exposure control and/or adjustment of mA and/or kV according to patient size and/or use of iterative reconstruction technique. FINDINGS: BRAIN: No edema, hemorrhage, mass, acute infarction, or inappropriate atrophy. CSF SPACES: No hydrocephalus, subarachnoid hemorrhage, or mass. Appropriate for age. SKULL: No fracture, mass, or other significant visible lesion. SINUSES: Mucosal thickening within the maxillary sinuses and ethmoid air cells. No fluid levels. ORBITS: No appreciable abnormality on the limited views. OTHER: Area of subcutaneous bruising versus edema overlying the posterior right parietal bone, approximately 4 cm in diameter by 0.8 cm in thickness. IMPRESSION: 1. Posterior right scalp bruising/edema. No definable hematoma. 2. No fractures or calvarium. 3. Age consistent mild chronic changes of the brain. No hemorrhage or acute abnormality. Electronically authenticated by: CAROL YIP Date: 2022-05-17 13:07 Normal [facility] XR CHEST 1 Von 05-17-2022 XR CHEST 1 V PORTABLE CHEST X-RAY . INDICATION: Chest pain. COMPARISON: 01/18/2022 TECHNIQUE: Single AP portable chest radiograph. FINDINGS: TUBES AND LINES: None. LUNGS: Hyperexpanded lungs. Minimal left basilar opacities. PLEURA: Questionable trace left effusion. HEART AND MEDIASTINUM: Within normal limits for portable technique. OSSEOUS STRUCTURES: No acute abnormality. IMPRESSION: Minimal left basilar opacities probably atelectasis. 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 Technician Authentication Interface Message Text EMERGENCY TRIAGE, TREAT AND TRANSPORT (ET3) DOCUMENTATION OF TELEHEALTH VISIT Date / Time: 05/01/2022599 Name: Stephane Patterson : 1955 SSN: [id number] EMS Agency: [facility] [x] Verbal consent obtained [] Implied consent - patient with potential emergency medical condition requiring assessment of capacity to refuse treatment and/or transport VITAL SIGNS: see flowsheet documentation Reason for Telehealth Visit: Chief Complaint Patient presents with Fall History of Present Ilness: 66 yo male with PMH DM, HTN, CAD, COPD on 2 L NC at baseline was at home alone when fell getting out of bed to get to toilet. No LOC. No head injury. Has right elbow skin tear. Onset just prior to EMS call Course improved after EMS lift assist Blood glucose 145 Declining EMS transport despite abnormal VS Additional pertinent PMHx, SocHx, FamHx: PMH as above Meds ASA, albuterol, statin, benadryl, esomprazole, gabapentin, isosorbide, Levothyroxine, metformin, ropinrole, sertarline Review of Systems: Denies the following: GASTELUM, neck pain, back pain, CP, ext pain, cough, fever, chills, SOB Exam: General: Awake, no distress Elevated BMI On nasal cannula oxygen ENT: normocephalic, atraumatic Pulmonary: No respiratory distress Cardiovascular: Well perfused MSK skin tear left elbow, dressed Neurologic: Oriented to person, place, time and events. Moving all extremities equally. Psychiatric: Appropriate. Good insight and judgement. Medical Decision Makin yo male with fall when getting out of bed. Tripped. No LOC, CP, or palpitations. Denies injury or pain but does have a skin tear to elbow. Awake alert normal mental status despite hypotension and low normal pulse ox on his baseline oxygen He has complex PMH and frequent hospital evaluations and admissions per pts report. He has medical decision making capacity. We had a jamal discussion about the unclear etiology of his abnormal vital signs as well as my serious concern for possible life threatening etiology. He expressed understanding of these concerns and was agreeable to call EMS back if he feel bad in anyway. Refused EMS transport. Disposition Supported by Telehealth Assessment: ET3 transport decisions: Refused transport EMS Disposition Reported: Same ET3 Encounter Completed by: Peter Molina, Normal [facility] Syst em Activated partial thrombopla stin time (aPTT) in platelet poor plasma by coagulation aOrdered By: Ramesh Byrd on 04-12-2022 aPTT Coag (PPP) [Time] 24.8 s 25.1-36.5 [facility] Automated erythrocytes count in urine sediment (number/area)Ordered By: Ramesh Byrd on 04-12-2022 RBC Auto (Urine sed) [#/Area] 20-49 [HPF] 0-4 [facility] Automated leukocytes count i n urine sediment (number/area)Ordered By: Ramesh Byrd on 04-12-2022 WBC Auto (Urine sed) [#/Area] 1-2 [HPF] 0-4 [facility] B-Type Natriuretic Peptideon 04-12-2022 Natriuretic peptide B (Bld) [Mass/Vol] 196.0 pg/mL High 5-100 [facility] Comment on above: Result Comment: PERF ORMED BY: [facility] [address] [place] [address] PATHOLOGIST INDUCTION BRAZER CHARLENE HERNANDEZ M.D. Performed By: #### C MP, TSH3, PT, HS TROP, PTT, BNP, MG, CBC #### [facility] [address] [place] [address] [facility] Basophils Auto (Bld) [#/Vol] Ordered By: Ramesh Byrd on 04-12-2022 Basophils (Bld) [#/Vol] 0.0 10*3/uL 0.0-0.2 [facility] Basophils/100 WBC Auto (Bld) Ordered By: Ramesh Byrd on 04-12-2022 Basophils/100 WBC (Bld) 0.6 % . [facility] Bilirubin Test strip Ql (U)O rdered By: Ramesh Byrd on 04-12-2022 Bilirubin Ql (U) Negative Negative [facility] Blood hemoglobin measurement (mass/volume)Ordered By: Ramesh Byrd on 04-12-2022 Hemoglobin (Bld) [Mass/Vol] 12.2 g/dL 13.0-17. 0 [facility] Blood leukocytes automated c ount (number/volume)Ordered By: Ramesh Byrd on 04-12-2022 WBC (Bld) [#/Vol] 6.4 10*3/uL 4.5-11.0 [facility] Body fluid albumin measureme nt (mass/volume)Ordered By: Ramesh Byrd on 04-12-2022 Albumin (Body fld) [Mass/Vol] 2.3 g/dL 3.2-5. 5 [facility] Color Auto (U)Ordered By: Andi Byrd on 04-12-2022 Color (U) Yellow Yellow [facility] Complete Blood Count Auto Di ffon 04-12-2022 Basophils (Bld) [#/Vol] 0.0 10*3/uL Normal 0.0-0.2 [facility] Comment on above: Result Comment: PERF ORMED BY: [place] [address] PATHOLOGIST INDUCTION BRAZER CHARLENE HERNANDEZ M.D. Performed By: #### C MP, TSH3, PT, HS TROP, PTT, BNP, MG, CBC #### [facility] [address] Basophils/100 WBC (Bld) 0.6 % Normal . [facility] Comment on above: Performed By: #### C MP, TSH3, PT, HS TROP, PTT, BNP, MG, CBC #### [address] Eosinophils (Bld) [#/Vol] 0.2 10*3/uL Normal 0.0-0.45 [facility] Comment on above: Performed By: #### C MP, TSH3, PT, HS TROP, PTT, BNP, MG, CBC #### [address] Eosinophils/100 WBC (Bld) 2.7 % Normal . [facility] Comment on above: Performed By: #### C MP, TSH3, PT, HS TROP, PTT, BNP, MG, CBC #### [address] Erythrocyte distribution wid th (RBC) [Ratio] 16.7 % High 12.0-14.8 [facility] Comment on above: Performed By: #### C MP, TSH3, PT, HS TROP, PTT, BNP, MG, CBC #### [address] Hematocrit (Bld) [Volume fraction] 36.7 % Low 38.8-50.0 [facility] Comment on above: Performed By: #### C MP, TSH3, PT, HS TROP, PTT, BNP, MG, CBC #### [address] Hemoglobin (Bld) [Mass/Vol] 12.2 g/dL Low 13.0-17. 0 [facility] Comment on above: Performed By: #### C MP, TSH3, PT, HS TROP, PTT, BNP, MG, CBC #### [address] Lymphocytes (Bld) [#/Vol] 1.0 10*3/uL Normal 1.00-4.8 [facility] Comment on above: Performed By: #### C MP, TSH3, PT, HS TROP, PTT, BNP, MG, CBC #### [address] Lymphocytes/100 WBC (Bld) 16.1 % Normal . [facility] Comment on above: Performed By: #### C MP, TSH3, PT, HS TROP, PTT, BNP, MG, CBC #### [address] MCH (RBC) [Entitic mass] 31.0 pg Normal 27.5-35.2 [facility] Comment on above: Performed By: #### C MP, TSH3, PT, HS TROP, PTT, BNP, MG, CBC #### [address] MCV (RBC) [Entitic vol] 93.5 fL Normal 83.5-101 [facility] Comment on above: Performed By: #### C MP, TSH3, PT, HS TROP, PTT, BNP, MG, CBC #### [address] Mean Corpuscular HGB Conc 33.1 g/dL Normal 32.5-35.6 [facility] Comment on above: Performed By: #### C MP, TSH3, PT, HS TROP, PTT, BNP, MG, CBC #### [address] Monocytes (Bld) [#/Vol] 0.8 10*3/uL Normal 0.0-0.8 [facility] Comment on above: Performed By: #### C MP, TSH3, PT, HS TROP, PTT, BNP, MG, CBC #### [address] Monocytes/100 WBC (Bld) 12.0 % Normal . [facility] Comment on above: Performed By: #### C MP, TSH3, PT, HS TROP, PTT, BNP, MG, CBC #### [address] Neutrophils (Bld) [#/Vol] 4.4 10*3/uL Normal 1.8-7.7 [facility] Comment on above: Performed By: #### C MP, TSH3, PT, HS TROP, PTT, BNP, MG, CBC #### [facility] [address] Neutrophils/100 WBC (Bld) 68.6 % Normal . [facility] Comment on above: Performed By: #### C MP, TSH3, PT, HS TROP, PTT, BNP, MG, CBC #### [facility] [address] Nucleated RBC/100 WBC (Bld) [Ratio] 0.1 % Normal 0-0.5 [facility] Comment on above: Performed By: #### C MP, TSH3, PT, HS TROP, PTT, BNP, MG, CBC #### [address] Platelet mean volume (Bld) [Entitic vol] 8.0 fL Normal 6.6-10.1 [facility] Comment on above: Performed By: #### C MP, TSH3, PT, HS TROP, PTT, BNP, MG, CBC #### [place] [address] [place] Platelets (Bld) [#/Vol] 191 10*3/uL Normal 150-450 [facility] Comment on above: Performed By: #### C MP, TSH3, PT, HS TROP, PTT, BNP, MG, CBC #### [address] RBC (Bld) [#/Vol] 3.93 10*6/uL Normal 3.90-5.60 [facility] Comment on above: Performed By: #### C MP, TSH3, PT, HS TROP, PTT, BNP, MG, CBC #### [address] WBC (Bld) [#/Vol] 6.4 10*3/uL Normal 4.5-11.0 [facility] Comment on above: Performed By: #### C MP, TSH3, PT, HS TROP, PTT, BNP, MG, CBC #### [facility] [address] Comprehensive Metabolic Pane xavier 04-12-2022 Albumin [Mass/Vol] 2.3 g/dL Low 3.2-5.5 [facility] Comment on above: Performed By: #### C MP, TSH3, PT, HS TROP, PTT, BNP, MG, CBC #### [facility] [address] Albumin/Globulin [Mass ratio] 0.5 {ratio} Normal [facility] Comment on above: Performed By: #### C MP, TSH3, PT, HS TROP, PTT, BNP, MG, CBC #### [address] ALP [Catalytic activity/Vol] 97 U/L High 32-92 [facility] Comment on above: Performed By: #### C MP, TSH3, PT, HS TROP, PTT, BNP, MG, CBC #### [facility] [address] ALT [Catalytic activity/Vol] 34 U/L Normal 10-60 [facility] Comment on above: Performed By: #### C MP, TSH3, PT, HS TROP, PTT, BNP, MG, CBC #### [address] Anion gap [Moles/Vol] 17.1 mmol/L High 6.0-15.0 [facility] Comment on above: Performed By: #### C MP, TSH3, PT, HS TROP, PTT, BNP, MG, CBC #### [address] AST [Catalytic activity/Vol] 136 U/L High 10-42 [facility] Comment on above: Performed By: #### C MP, TSH3, PT, HS TROP, PTT, BNP, MG, CBC #### [address] Bilirubin [Mass/Vol] 1.3 mg/dL High 0.3-1.2 [facility] Comment on above: Result Comment: Samp les from patients who have taken Naproxen have shown spurious elevation in Total Bilirubin levels. A metabolite of Naproxen, O-desmethylnaproxen, has been shown to interfere with the Jendrassik-Grof method for measuring Total Bilirubin. Performed By: #### C MP, TSH3, PT, HS TROP, PTT, BNP, MG, CBC #### [facility] [address] Calcium [Mass/Vol] 8.6 mg/dL Normal 8.2-10.2 [facility] Comment on above: Performed By: #### C MP, TSH3, PT, HS TROP, PTT, BNP, MG, CBC #### [facility] [address] Chloride [Moles/Vol] 97 mmol/L Normal 95-114 [facility] Comment on above: Performed By: #### C MP, TSH3, PT, HS TROP, PTT, BNP, MG, CBC #### [facility] [address] CO2 [Moles/Vol] 25.4 mmol/L Normal 22.0-30.0 [facility] Comment on above: Performed By: #### C MP, TSH3, PT, HS TROP, PTT, BNP, MG, CBC #### [facility] [address] Creatinine [Mass/Vol] 1.14 mg/dL Normal 0.64-1.27 [facility] Comment on above: Performed By: #### C MP, TSH3, PT, HS TROP, PTT, BNP, MG, CBC #### [facility] [address] Creatinine Clr Calc Pharmacy 97.67 [facility] Comment on above: Performed By: #### C MP, TSH3, PT, HS TROP, PTT, BNP, MG, CBC #### [facility] [address] Estimated GFR ( Lilibeth > 60 [facility] Comment on above: Result Comment: GFR estimated reference range: According to KDOQI guidelines, <60 ml/min/1.73m2 is sufficient to diagnose a patient with chronic kidney disease. Performed By: #### C MP, TSH3, PT, HS TROP, PTT, BNP, MG, CBC #### [facility] [address] Estimated GFR (Non- Am > [address] [facility] Comment on above: Performed By: #### C MP, TSH3, PT, HS TROP, PTT, BNP, MG, CBC #### [facility] [address] Globulin (S) [Mass/Vol] 4.7 g/dL Normal [facility] Comment on above: Performed By: #### C MP, TSH3, PT, HS TROP, PTT, BNP, MG, CBC #### [address] Glucose [Mass/Vol] 164 mg/dL High 70-100 [facility] Comment on above: Result Comment: [facility] Glucose Reference Range is dependent on time and content of last meal. Glucose of more than 200 mg/dL in a nonstressed, ambulatory subject supports the diagnosis of Diabetes Mellitus. ADA recommended reference range Performed By: #### C MP, TSH3, PT, HS TROP, PTT, BNP, MG, CBC #### [address] Potassium [Moles/Vol] 3.5 mmol/L Normal 3.5-5.1 [facility] Comment on above: Performed By: #### C MP, TSH3, PT, HS TROP, PTT, BNP, MG, CBC #### [address] Protein [Mass/Vol] 7.0 g/dL Normal 6.1-7.9 [facility] Comment on above: Performed By: #### C MP, TSH3, PT, HS TROP, PTT, BNP, MG, CBC #### [address] Sodium [Moles/Vol] 136 mmol/L Normal 136-146 [facility] Comment on above: Performed By: #### C MP, TSH3, PT, HS TROP, PTT, BNP, MG, CBC #### [facility] [address] Urea nitrogen [Mass/Vol] 13 mg/dL Normal 9-23 [facility] Comment on above: Performed By: #### C MP, TSH3, PT, HS TROP, PTT, BNP, MG, CBC #### [facility] [address] [place] [address] [place] Creatinine and Glomerular fi ltration rate.predicted panel (S/P/Bld)Ordered By: Ramesh Byrd on 04-12-2022 Creatinine [Mass/Vol] 1.14 mg/dL 0.64-1.27 [facility] Dipstick and Microscopicon 0 04-12-2022 Appearance (U) Clear Normal Clear [facility] Comment on above: Order Comment: Name Collection Type:: Clean-Voided Midstream Performed By: #### A DDONUAPLUS #### [address] Bacteria,Urine None Seen Normal None Seen [facility] Comment on above: Order Comment: Name Collection Type:: Clean-Voided Midstream Performed By: #### A DDONUAPLUS #### [place] [address] [place] Bilirubin,Urine Negative Normal Negative [facility] Comment on above: Order Comment: Name Collection Type:: Clean-Voided Midstream Performed By: #### A DDONUAPLUS #### [place] [address] [place] Color (U) Yellow Normal Yellow [facility] Comment on above: Order Comment: Name Collection Type:: Clean-Voided Midstream Performed By: #### A DDONUAPLUS #### [place] [address] [place] Glucose Ql (U) Normal Normal Normal [facility] Comment on above: Order Comment: Name Collection Type:: Clean-Voided Midstream Performed By: #### A DDONUAPLUS #### [facility] [address] [place] [id number] [place] Hyaline Casts,Urine 0-8 Normal 0-8 [facility] Comment on above: Order Comment: Name Collection Type:: Clean-Voided Midstream Result Comment: PERF ORMED BY: [place] [address] PATHOLOGIST INDUCTION BRAZER CHARLENE HERNANDEZ M.D. Performed By: #### A DDONUAPLUS #### [address] Ketones Ql (U) Trace High Negative [facility] Comment on above: Order Comment: Name Collection Type:: Clean-Voided Midstream Performed By: #### A DDONUAPLUS #### [address] Leukocyte esterase Test stri p Ql (U) Negative Normal Negative [facility] Comment on above: Order Comment: Name Collection Type:: Clean-Voided Midstream Performed By: #### A DDONUAPLUS #### [place] [address] [place] Nitrite,Urine Negative Normal Negative [facility] Comment on above: Order Comment: Name Collection Type:: Clean-Voided Midstream Performed By: #### A DDONUAPLUS #### [place] [address] [place] Occult Blood,Urine 2+ High Negative [facility] Comment on above: Order Comment: Name Collection Type:: Clean-Voided Midstream Result Comment: PERF ORMED BY: [place] [address] PATHOLOGIST INDUCTION BRAZER CHARLENE HERNANDEZ M.D. Performed By: #### A DDONUAPLUS #### [place] [address] [place] pH (U) 6.5 [pH] Normal 5.0-9.[address] [facility] Comment on above: Order Comment: Name Collection Type:: Clean-Voided Midstream Performed By: #### A DDONUAPLUS #### [facility] [address] [place] [address] Protein (U) [Mass/Vol] 100 mg/dL High Negative [facility] Comment on above: Order Comment: Name Collection Type:: Clean-Voided Midstream Performed By: #### A DDONUAPLUS #### [address] RBC,Urine 20-49 High 0-[address] [facility] Comment on above: Order Comment: Name Collection Type:: Clean-Voided Midstream Performed By: #### A DDONUAPLUS #### [address] Specificy [place],Urine 1.020 Normal 1.001-1.030 [facility] Comment on above: Order Comment: Name Collection Type:: Clean-Voided Midstream Performed By: #### A DDONUAPLUS #### [address] Squamous Epithelial Cell,Urine 0-1 Normal 0-2 [facility] Comment on above: Order Comment: Name Collection Type:: Clean-Voided Midstream Performed By: #### A DDONUAPLUS #### [address] Urobilinogen,Urine Normal Normal Normal [facility] Comment on above: Order Comment: Name Collection Type:: Clean-Voided Midstream Performed By: #### A DDONUAPLUS #### [place] [address] [place] WBC,Urine 1-2 Normal 0-[address] [facility] Comment on above: Order Comment: Name Collection Type:: Clean-Voided Midstream Performed By: #### A DDONUAPLUS #### [place] [address] [place] ECG 12 lead ECGon 04-12-2022 ECG 12 lead ECG [facility] [place] [address] [place] [address] Electrocardiograph Report Signed Patient: Stephane Patterson MR#: [id number] 005 : 1955 Acct:[id number] Age/Sex: 66 / M ADM Date: 04/12/22 Loc: ER Room: Type: [facility] ER Attending Dr: Ordering Provider: Ramesh Byrd DO Date of Service: 04/12/2210/02/1054 ECG/ECG 12 lead ECG: Weakness Copies to: Test Reason : Blood Pressure : 140/079 mmHG Vent. Rate : 085 BPM Atrial Rate : 085 BPM P-R Int : 164 ms QRS Dur : 078 ms QT Int : 432 ms P-R-T Axes : 057 052 064 degrees QTc Int : 514 ms Sinus rhythm with occasional premature ventricular complexes Prolonged QT Confirmed by Ramesh BYRD DO ([id number]) on 04/12/2022 4:38:01 PM Referred By: Electronically Signed By:Ramesh BYRD DO Transcribed By: MUS Signed By Ramesh Byrd DO 0 04/12/[address] [facility] Eosinophils Auto (Bld) [#/Vo l]Ordered By: Ramesh Byrd on 04-12-2022 Eosinophils (Bld) [#/Vol] 0.2 10*3/uL 0.0-0.45 [facility] Eosinophils/100 WBC Auto (Bl d)Ordered By: Ramesh Byrd on 04-12-2022 Eosinophils/100 WBC (Bld) 2.7 % . [facility] Erythrocyte distribution wid th Auto (RBC) [Ratio]Ordered By: Ramesh Byrd on 04-12-2022 Erythrocyte distribution wid th (RBC) [Ratio] 16.7 % 12.0-14.8 [facility] Estimated glomerular filtrat ion rate (GFR) non- AmericanOrdered By: Ramesh Byrd on 04-12-2022 GFR/1.73 sq M.predicted umang g non-blacks MDRD (S/P/Bld) [Vol rate/Area] > 60 mL/Min [facility] Globulin Calc (S) [Mass/Vol] Ordered By: Ramesh Byrd on 04-12-2022 Globulin (S) [Mass/Vol] 4.7 g/dL F [facility] Glucose Glucometer (BldC) [M ass/Vol]Ordered By: Ramesh Byrd on 04-12-2022 Glucose [Mass/Vol] 168 mg/dL [facility] Comment on above: Random Glucose Refer ence Range is dependent on time and content of last meal. Glucose of more than 200 mg/dL in a nonstressed, ambulatory subject supports the diagnosis of Diabetes Mellitus. Glucose Poct Glucometerson 0 04-12-2022 Glucose [Mass/Vol] 168 mg/dL Normal [facility] Comment on above: Result Comment: [facility] Glucose Reference Range is dependent on time and content of last meal. Glucose of more than 200 mg/dL in a nonstressed, ambulatory subject supports the diagnosis of Diabetes Mellitus. PERFORMED BY: [facility] [address] [address] PATHOLOGIST INDUCTION BRAZER CHARLENE HERNANDEZ M.D. Performed By: #### G LUORA #### Point of Care testing , Hematocrit Auto (Bld) [Volum e fraction]Ordered By: Ramesh Byrd on 04-12-2022 Hematocrit (Bld) [Volume fraction] 36.7 % 3 8.8-50.0 [facility] Ketones Auto test strip (U) [Mass/Vol]Ordered By: Ramesh Byrd on 04-12-2022 Ketones (U) [Mass/Vol] Trace Negative [facility] Laboratory - Chemistry and C hemistry - challengeOrdered By: Ramesh Byrd on 04-12-2022 Magnesium [Mass/Vol] 1.3 mg/dL 1.6-2.6 [facility] Natriuretic peptide B (Bld) [Mass/Vol] 196.0 pg/mL 5-100 [facility] Laboratory - CoagulationOrde red By: Ramesh Byrd on 04-12-2022 PT Coag (PPP) [Time] 12.5 s 9.0-12.9 [facility] Laboratory - Hematology and Cell countsOrdered By: Ramesh Byrd on 04-12-2022 Nucleated RBC/100 WBC (Bld) [Ratio] 0.1 % 0-0.5 [facility] - UrinalysisOrder ed By: Ramesh Byrd on 04-12-2022 Hyaline casts LM Ql (Urine sed) 0-8 [LPF] 0-8 [facility] Lymphocytes Auto (Bld) [#/Vo l]Ordered By: Ramesh Byrd on 04-12-2022 Lymphocytes (Bld) [#/Vol] 1.0 10*3/uL 1.00-4.8 [facility] Lymphocytes/100 WBC Auto (Bl d)Ordered By: Ramesh Byrd on 04-12-2022 Lymphocytes/100 WBC (Bld) 16.1 % . [facility] MCH Auto (RBC) [Entitic mass ]Ordered By: Ramesh Byrd on 04-12-2022 MCH (RBC) [Entitic mass] 31.0 pg 27.5-35.2 [facility] MCHC Auto (RBC) [Mass/Vol]Or dered By: Ramesh Byrd on 04-12-2022 MCHC (RBC) [Mass/Vol] 33.1 g/dL 32.5-35.6 [facility] MCV Auto (RBC) [Entitic vol] Ordered By: Ramesh Byrd on 04-12-2022 MCV (RBC) [Entitic vol] 93.5 fL 83.5-101 F [facility] Magnesiumon 04-12-2022 Magnesium [Mass/Vol] 1.3 mg/dL Low 1.6-2.6 [facility] Comment on above: Performed By: #### G CARMEN #### Point of Care testing , Monocytes Auto (Bld) [#/Vol] Ordered By: Ramesh Byrd on 04-12-2022 Monocytes (Bld) [#/Vol] 0.8 10*3/uL 0.0-0.8 [facility] Monocytes/100 WBC Auto (Bld) Ordered By: Ramesh Byrd on 04-12-2022 Monocytes/100 WBC (Bld) 12.0 % . F [facility] Neutrophils Auto (Bld) [#/Vo l]Ordered By: Ramesh Byrd on 04-12-2022 Neutrophils (Bld) [#/Vol] 4.4 10*3/uL 1.8-7.7 [facility] Neutrophils/100 WBC Auto (Bl d)Ordered By: Ramesh Byrd on 04-12-2022 Neutrophils/100 WBC (Bld) 68.6 % . [facility] Nitrite Test strip Ql (U)Ord ered By: Ramesh Byrd on 04-12-2022 Nitrite Ql (U) Negative Negative [facility] No Panel InformationOrdered By: Ramesh Byrd on 04-12-2022 Estimated GFR () > 60 mL/Min [facility] Comment on above: GFR estimated refere nce range: According to KDOQI guidelines, <60 ml/min/1.73m2 is sufficient to diagnose a patient with chronic kidney disease. Pharmacy Creatinine Clearance (Chem 97.67 [facility] Partial Thromboplastin Timeo n 04-12-2022 aPTT Coag (Bld) [Time] 24.8 s Low 25.1-36.5 Fi [facility] Comment on above: Result Comment: PERF ORMED BY: [place] [address] PATHOLOGIST INDUCTION BRAZER CHARLENE HERNANDEZ M.D. Performed By: #### C MP, TSH3, PT, HS TROP, PTT, BNP, MG, CBC #### [facility] [address] [place] [address] Platelet mean volume Auto (B ld) [Entitic vol]Ordered By: Ramesh Byrd on 04-12-2022 Platelet mean volume (Bld) [Entitic vol] 8.0 fL 6.6-10.1 [facility] Platelet poor plasma interna tional normalized ratio (INR) by coagulation assay (relatOrdered By: Ramesh Byrd on 04-12-2022 INR Coag (PPP) [Relative time] 1.1 {INR} [facility] Comment on above: INR Therapeutic Rang e A) Pre- and Peroperative OAT started two weeks before surgery. NOT HIP SURGERY: 1.5 - 2.5 HIP SURGERY: 2 - 3 B) Primary and secondary prevention of venous THROMBOSIS: 2 - 3 C) Active venous thrombosis, pulmonary embolism and prevention of recurrent venous thrombosis: 2 - 3 D) Prevention of arterial thromboembolism including patients with mechanical heart valves: 3 - 4.5 Platelets Auto (Bld) [#/Vol] Ordered By: Ramesh Byrd on 04-12-2022 Platelets (Bld) [#/Vol] 191 10*3/uL 150-450 [facility] Protein Auto test strip (U) [Mass/Vol]Ordered By: Ramesh Byrd on 04-12-2022 Protein (U) [Mass/Vol] 100 mg/dL Negative [facility] Protein [Mass/volume] in Ser um or PlasmaOrdered By: Ramesh Byrd on 04-12-2022 Protein [Mass/Vol] 7.0 g/dL 6.1-7.9 [facility] Prothrombin Time INRon 04-12 INR Coag (PPP) [Relative time] 1.1 {INR} Normal [facility] Comment on above: Result Comment: INR Therapeutic Range A) Pre- and Peroperative OAT started two weeks before surgery. NOT HIP SURGERY: 1.5 - 2.5 HIP SURGERY: 2 - 3 B) Primary and secondary prevention of venous THROMBOSIS: 2 - 3 C) Active venous thrombosis, pulmonary embolism and prevention of recurrent venous thrombosis: 2 - 3 D) Prevention of arterial thromboembolism including patients with mechanical heart valves: 3 - 4.5 Performed By: #### C MP, TSH3, PT, HS TROP, PTT, BNP, MG, CBC #### [facility] [address] PT Coag (PPP) [Time] 12.5 s Normal 9.0-12.9 [facility] Comment on above: Performed By: #### C MP, TSH3, PT, HS TROP, PTT, BNP, MG, CBC #### [facility] [address] RBC Auto (Bld) [#/Vol]Ordere d By: Ramesh Byrd on 04-12-2022 RBC (Bld) [#/Vol] 3.93 10*6/uL 3.90-5.60 [facility] Serum or plasma alanine vivas otransferase measurement without P-5'-P (enzymatic activiOrdered By: Ramesh Byrd on 04-12-2022 ALT No additional P-5'-P [Ca talytic activity/Vol] 34 U/L 10-60 [facility] Serum or plasma albumin/glob ulin mass ratioOrdered By: Ramesh Byrd on 04-12-2022 Albumin/Globulin [Mass ratio] 0.5 {ratio} [facility] Serum or plasma alkaline dilan sphatase measurement (enzymatic activity/volume)Ordered By: Ramesh Byrd on 04-12-2022 ALP [Catalytic activity/Vol] 97 U/L 32-92 [facility] Serum or plasma anion gap de terminationOrdered By: Ramesh Byrd on 04-12-2022 Anion gap [Moles/Vol] 17.1 mmol/L 6.0-15.0 [facility] Serum or plasma aspartate am inotransferase measurement (enzymatic activity/volume)Ordered By: Ramesh Byrd on 04-12-2022 AST [Catalytic activity/Vol] 136 U/L 10-42 [facility] Serum or plasma calcium osbaldo urement (mass/volume)Ordered By: Ramesh Byrd on 04-12-2022 Calcium [Mass/Vol] 8.6 mg/dL 8.2-10.2 [facility] Serum or plasma chloride judith surement (moles/volume)Ordered By: Ramesh Byrd on 04-12-2022 Chloride [Moles/Vol] 97 mmol/L 95-114 [facility] Serum or plasma glucose osbaldo urement (mass/volume)Ordered By: Ramesh Byrd on 04-12-2022 Glucose [Mass/Vol] 164 mg/dL 70-100 [facility] Comment on above: ADA recommended refe rence range Random Glucose Reference Range is dependent on time and content of last meal. Glucose of more than 200 mg/dL in a nonstressed, ambulatory subject supports the diagnosis of Diabetes Mellitus. Serum or plasma potassium me asurement (moles/volume)Ordered By: Ramesh Byrd on 04-12-2022 Potassium [Moles/Vol] 3.5 mmol/L 3.5-5.1 [facility] Serum or plasma sodium measu rement (moles/volume)Ordered By: Ramesh Byrd on 04-12-2022 Sodium [Moles/Vol] 136 mmol/L 136-146 [facility] Serum or plasma total biliru bin measurement (mass/volume)Ordered By: Ramesh Byrd on 04-12-2022 Bilirubin [Mass/Vol] 1.3 mg/dL 0.3-1.2 [facility] Comment on above: Samples from patient s who have taken Naproxen have shown spurious elevation in Total Bilirubin levels. A metabolite of Naproxen, O-desmethylnaproxen, has been shown to interfere with the Jenallynik-Grolashae method for measuring Total Bilirubin. Serum or plasma total carbon dioxide measurement (moles/volume)Ordered By: Ramesh Byrd on 04-12-2022 CO2 [Moles/Vol] 25.4 mmol/L 22.0-30.0 [facility] Serum or plasma urea nitroge n measurement (mass/volume)Ordered By: Ramesh Byrd on 04-12-2022 Urea nitrogen [Mass/Vol] 13 mg/dL 05-03 [facility] Specific gravity Auto test s trip (U) [Rel density][facility] Specific gravity (U) [Rel density] 1.020 1.001-1.030 [facility] Squamous epithelial cells de tection in urine sediment by light microscopyOrdered By: Ramesh Byrd on 04-12-2022 Epithelial cells.squamous LM Ql (Urine sed) 0-1 [HPF] 0-2 [facility] TSH DL <= 0.005 mIU/L QnOrde red By: Ramesh Byrd on 04-12-2022 TSH Qn 13.14 m[IU]/L 0.45-5.33 [facility] Thyroid Stimulating Hormoneo n 04-12-2022 TSH Qn 13.14 m[IU]/L High 0.45-5.33 [facility] Comment on above: Result Comment: PERF ORMED BY: [facility] [address] [facility] [place] [address] PATHOLOGIST INDUCTION BRAZER CHARLENE HERNANDEZ M.D. Performed By: #### G LULS #### Point of Care testing , Troponin I High Sensitivityo n 04-12-2022 Troponin I High Sensitivity 18 pg/mL Normal 0-20 [facility] Comment on above: Result Comment: PERF ORMED BY: [facility] [address] [facility] [address] PATHOLOGIST INDUCTION BRAZER CHARLENE HERNANDEZ M.D. Performed By: #### C MP, TSH3, PT, HS TROP, PTT, BNP, MG, CBC #### [facility] [address] [place] [id number] [facility] Troponin I.cardiac [Mass/vol ume] in Serum or Plasma by High sensitivity methodOrdered By: Ramesh Bryd on 04-12-2022 Troponin I.cardiac High sens itivity method [Mass/Vol] 18 pg/mL 0-[address] [facility] Urine bacteria detection by automated methodOrdered By: Ramesh Byrd on 04-12-2022 Bacteria Auto Ql (U) None seen None Seen [facility] Urine clarity by refractomet ry automatedOrdered By: Ramesh Byrd on 04-12-2022 Clarity Refractometry automated (U) Clear Clear [facility] Urine glucose measurement by automated test strip (mass/volume)Ordered By: Ramesh Byrd on 04-12-2022 Glucose Auto test strip (U) [Mass/Vol] Normal mg/dL Normal [facility] Urine hemoglobin detection b y automated test stripOrdered By: Ramesh Byrd on 04-12-2022 Hemoglobin Auto test strip Ql (U) 2+ Ne gative [facility] Urine leukocyte esterase det ection by automated test stripOrdered By: Ramesh Byrd on 04-12-2022 Leukocyte esterase Auto test strip Ql (U) Negative Negative [facility] Urobilinogen Auto test strip (U) [Mass/Vol]Ordered By: Ramesh Byrd on 04-12-2022 Urobilinogen (U) [Mass/Vol] Normal mg/dL Normal [facility] XR chest 2V*on 04-12-2022 XR chest 2V* [facility] Main [place] [address] [place] [address] XRay Report Signed Patient: Stephane Patterson MR#: [id number] 005 : 1955 Acct:[id number] Age/Sex: 66 / M ADM Date: 04/12/22 Loc: ER Room: Type: [facility] ER Attending Dr: Copies to: Ramesh Byrd DO Ordering Provider: Ramesh Byrd DO Date of Service: 04/12/22 XR/XR chest 2V*: Weakness AP ERECT AND LATERAL CHEST: CLINICAL HISTORY: Lower extremity weakness and chronic productive cough. COMPARISON: 04/02/2022 chest x-ray and CT. Large body habitus slightly limits evaluation. There may still be minimal atelectasis or scarring at the lower lobes on the lateral view. There is no definite developing consolidation, effusion or pneumothorax. The cardiac, hilar and mediastinal silhouettes are stable. There is no vascular congestion. The visualized bony thorax is intact. XR/XR chest 2V* IMPRESSION: NO DEFINITE ACUTE FINDINGS. Impression dictated by: Jessica Cazares M.D.04/12/2022 11:53 AM Dictation Location: [place] [id number] Transcribed By: [facility] 04/12/22 1153 Dictated By: Jessica Cazares MD 04/12/22 1151 Signed By: 04/12/22 1153 Normal [facility] pH Auto test strip (U)Ordere d By: Ramesh Byrd on 04-12-2022 pH (U) 6.5 [pH] 5.0-9.[address] [facility] Albumin [Mass/volume] in Ser um or PlasmaOrdered By: Lupe Hernandez on 04-09-2022 Albumin [Mass/Vol] 1.9 g/dL 3.2-5.5 [facility] Basophils Auto (Bld) [#/Vol] Ordered By: Lupe Hernandez on 04-09-2022 Basophils (Bld) [#/Vol] 0.1 10*3/uL 0.0-0.2 [facility] Basophils/100 WBC Auto (Bld) Ordered By: Lupe Hernandez on 04-09-2022 Basophils/100 WBC (Bld) 1.3 % . [facility] Blood hemoglobin measurement (mass/volume)Ordered By: Lupe Hernandez on 04-09-2022 Hemoglobin (Bld) [Mass/Vol] 11.2 g/dL 13.0-17. 0 [facility] Blood leukocytes automated c ount (number/volume)Ordered By: Lupe Hernandez on 04-09-2022 WBC (Bld) [#/Vol] 5.4 10*3/uL 4.5-11.0 [facility] Creatinine and Glomerular fi ltration rate.predicted panel (S/P/Bld)Ordered By: Lupe Hernandez on 04-09-2022 Creatinine [Mass/Vol] 0.88 mg/dL 0.64-1.27 [facility] Eosinophils Auto (Bld) [#/Vo l]Ordered By: Lupe Hernandez on 04-09-2022 Eosinophils (Bld) [#/Vol] 0.3 10*3/uL 0.0-0.45 [facility] Eosinophils/100 WBC Auto (Bl d)Ordered By: Lupe Hernandez on 04-09-2022 Eosinophils/100 WBC (Bld) 5.6 % . [facility] Erythrocyte distribution wid th Auto (RBC) [Ratio]Ordered By: Lupe Hernandez on 04-09-2022 Erythrocyte distribution wid th (RBC) [Ratio] 16.5 % 12.0-14.8 [facility] Estimated glomerular filtrat ion rate (GFR) non- AmericanOrdered By: Lupe Hernandez on 04-09-2022 GFR/1.73 sq M.predicted umang g non-blacks MDRD (S/P/Bld) [Vol rate/Area] > 60 mL/Min [facility] Globulin Calc (S) [Mass/Vol] Ordered By: Lupe Hernandez on 04-09-2022 Globulin (S) [Mass/Vol] 4.2 g/dL [facility] Glucose Glucometer (BldC) [M ass/Vol]Ordered By: Lupe Hernandez on 04-09-2022 Glucose [Mass/Vol] 178 mg/dL [facility] Comment on above: Random Glucose Refer ence Range is dependent on time and content of last meal. Glucose of more than 200 mg/dL in a nonstressed, ambulatory subject supports the diagnosis of Diabetes Mellitus. Hematocrit Auto (Bld) [Volum e fraction]Ordered By: Lupe Hernandez on 04-09-2022 Hematocrit (Bld) [Volume fraction] 33.6 % 3 8.8-50.0 [facility] Laboratory - Hematology and Cell countsOrdered By: Lupe Hernandez on 04-09-2022 Nucleated RBC/100 WBC (Bld) [Ratio] 0.2 % 0-0.5 [facility] Lymphocytes Auto (Bld) [#/Vo l]Ordered By: Lupe Hernandez on 04-09-2022 Lymphocytes (Bld) [#/Vol] 1.0 10*3/uL 1.00-4.8 [facility] Lymphocytes/100 WBC Auto (Bl d)Ordered By: Lupe Hernandez on 04-09-2022 Lymphocytes/100 WBC (Bld) 18.3 % . [facility] MCH Auto (RBC) [Entitic mass ]Ordered By: Lupe Hernandez on 04-09-2022 MCH (RBC) [Entitic mass] 31.1 pg 27.5-35.2 [facility] MCHC Auto (RBC) [Mass/Vol]Or dered By: Lupe Hernandez on 04-09-2022 MCHC (RBC) [Mass/Vol] 33.5 g/dL 32.5-35.[address] [facility] MCV Auto (RBC) [Entitic vol] Ordered By: Lupe Hernandez on 04-09-2022 MCV (RBC) [Entitic vol] 93.0 fL 83.5-101 [facility] Monocytes Auto (Bld) [#/Vol] Ordered By: Lupe Hernandez on 04-09-2022 Monocytes (Bld) [#/Vol] 0.6 10*3/uL 0.0-0.8 [facility] Monocytes/100 WBC Auto (Bld) Ordered By: Lupe Hernandez on 04-09-2022 Monocytes/100 WBC (Bld) 11.0 % . [facility] Neutrophils Auto (Bld) [#/Vo l]Ordered By: Lupe Hernandez on 04-09-2022 Neutrophils (Bld) [#/Vol] 3.4 10*3/uL 1.8-7.7 [facility] Neutrophils/100 WBC Auto (Bl d)Ordered By: Lupe Hernandez on 04-09-2022 Neutrophils/100 WBC (Bld) 63.8 % . [facility] No Panel InformationOrdered By: Lupe Hernandez on 04-09-2022 Bedside Glucose Comment Glu2: cleaned meter [facility] Estimated GFR () > 60 mL/Min [facility] Comment on above: GFR estimated refere nce range: According to KDOQI guidelines, <60 ml/min/1.73m2 is sufficient to diagnose a patient with chronic kidney disease. Pharmacy Creatinine Clearance (Chem 130.27 [facility] Platelet mean volume Auto (B ld) [Entitic vol]Ordered By: Lupe Hernandez on 04-09-2022 Platelet mean volume (Bld) [Entitic vol] 7.6 fL 6.6-10.1 [facility] Platelets Auto (Bld) [#/Vol] Ordered By: Lupe Hernandez on 04-09-2022 Platelets (Bld) [#/Vol] 214 10*3/uL 150-450 [facility] Protein [Mass/volume] in Ser um or PlasmaOrdered By: Lupe Hernandez on 04-09-2022 Protein [Mass/Vol] 6.1 g/dL 6.1-7.9 [facility] RBC Auto (Bld) [#/Vol]Ordere d By: Lupe Hernandez on 04-09-2022 RBC (Bld) [#/Vol] 3.61 10*6/uL 3.90-5.60 [facility] Serum or plasma alanine vivas otransferase measurement without P-5'-P (enzymatic activiOrdered By: Lupe Hernandez on 04-09-2022 ALT No additional P-5'-P [Ca talytic activity/Vol] 21 U/L 10-60 [facility] Serum or plasma albumin/glob ulin mass ratioOrdered By: Lupe Hernandez on 04-09-2022 Albumin/Globulin [Mass ratio] 0.5 {ratio} [facility] Serum or plasma alkaline dilan sphatase measurement (enzymatic activity/volume)Ordered By: Lupe Hernandez on 04-09-2022 ALP [Catalytic activity/Vol] 89 U/L 32-92 [facility] Serum or plasma anion gap de terminationOrdered By: Lupe Hernandez on 04-09-2022 Anion gap [Moles/Vol] 8.4 mmol/L 6.0-15.0 [facility] Serum or plasma aspartate am inotransferase measurement (enzymatic activity/volume)Ordered By: Lupe Hernandez on 04-09-2022 AST [Catalytic activity/Vol] 27 U/L 10-42 [facility] Serum or plasma calcium osbaldo urement (mass/volume)Ordered By: Lupe Hernandez on 04-09-2022 Calcium [Mass/Vol] 8.2 mg/dL 8.2-10.2 [facility] Serum or plasma chloride judith surement (moles/volume)Ordered By: Lupe Hernandez on 04-09-2022 Chloride [Moles/Vol] 98 mmol/L 95-114 [facility] Serum or plasma glucose osbaldo urement (mass/volume)Ordered By: Lupe Hernandez on 04-09-2022 Glucose [Mass/Vol] 150 mg/dL 70-100 [facility] Comment on above: ADA recommended refe rence range Random Glucose Reference Range is dependent on time and content of last meal. Glucose of more than 200 mg/dL in a nonstressed, ambulatory subject supports the diagnosis of Diabetes Mellitus. Serum or plasma potassium me asurement (moles/volume)Ordered By: Lupe Hernandez on 04-09-2022 Potassium [Moles/Vol] 3.4 mmol/L 3.5-5.1 [facility] Serum or plasma sodium measu rement (moles/volume)Ordered By: Lupe Hernandez on 04-09-2022 Sodium [Moles/Vol] 134 mmol/L 136-146 [facility] Serum or plasma total biliru bin measurement (mass/volume)Ordered By: Lupe Hernandez on 04-09-2022 Bilirubin [Mass/Vol] 0.7 mg/dL 0.3-1.2 [facility] Serum or plasma total carbon dioxide measurement (moles/volume)Ordered By: Lupe Hernandez on 04-09-2022 CO2 [Moles/Vol] 31.0 mmol/L 22.0-30.0 [facility] Serum or plasma urea nitroge n measurement (mass/volume)Ordered By: Lupe Hernandez on 04-09-2022 Urea nitrogen [Mass/Vol] 9 mg/dL 9-23 [facility] Bacterial blood cultureOrder ed By: Luke Moran on 04-07-2022 Bacteria identified Cx Nom (Bld) NO GROWTH [address] [facility] Laboratory - Chemistry and C hemistry - challengeOrdered By: Luke Moran on 04-04-2022 CO2 [Moles/Vol] 29.4 mmol/L 23.0-27.0 [facility] HCO3 (Bld) [Moles/Vol] 28.1 mmol/L 23.0-29.0 [facility] No Panel InformationOrdered By: Luke Moran on 04-04-2022 Arterial Blood Base Excess 3.4 mmol/L -3.0-3.0 [facility] Arterial Blood Oxygen Content 6.4 mmol/L 6.6-9. 7 [facility] Arterial Blood Oxygen Saturation 92.1 % 95.0-100.0 [facility] Arterial Blood Partial Press ure CO2 43.2 mm[Hg] 35.0-45.0 [facility] Arterial Blood Partial Press ure O2 61.4 mm[Hg] 80.0-100.0 [facility] Arterial Blood pH 7.43 7.35-7.45 [facility] Blood Gas Critical Value See comment [facility] Comment on above: Critical Value kaufman d on: 04/04/2022 at 09:33 Blood Gas Liter Flow 2 L/min [facility] Blood Gas Sample Site Left radial [facility] FiO2 28 % [facility] Oxygen Delivery Device Nasal cannula [facility] Automated erythrocytes count in urine sediment (number/area)Ordered By: Jair Gabriel on 04-03-2022 RBC Auto (Urine sed) [#/Area] 3-4 [HPF] 0-4 [facility] Automated leukocytes count i n urine sediment (number/area)Ordered By: Jair Gabriel on 04-03-2022 WBC Auto (Urine sed) [#/Area] None seen [HPF] 0 -4 [facility] Bilirubin Test strip Ql (U)O rdered By: Jair Gabriel on 04-03-2022 Bilirubin Ql (U) Negative Negative [facility] Color Auto (U)Ordered By: Tam Gabriel on 04-03-2022 Color (U) Yellow Yellow [facility] Hepatitis B virus surface Ag [Presence] in Serum or Plasma by ImmunoassayOrdered By: Luke Moran on 04-03-2022 HBV surface Ag IA Ql Negative Negative [facility] Comment on above: Performed at: [facility] [address] [id number] Ceo: Genaro Becerril PhD, Phone: [phone] IgA [Mass/volume] in Serum o r PlasmaOrdered By: Luke Moran on 04-03-2022 IgA [Mass/Vol] 697 mg/dL 61-437 [facility] IgG [Mass/volume] in Serum o r PlasmaOrdered By: Luke Moran on 04-03-2022 IgG [Mass/Vol] 1107 mg/dL 603-1613 [facility] IgM [Mass/volume] in Serum o r PlasmaOrdered By: Luke Moran on 04-03-2022 IgM [Mass/Vol] 91 mg/dL 20-172 [facility] Comment on above: Performed at: [facility] [address] [id number] Ceo: Genaro Becerril PhD, Phone: [phone] Immunofixation for UrineOrde red By: Luke Moran on 04-03-2022 Interpretation Immunofixatio n (U) [Interp] See comment . [facility] Comment on above: No monoclonality det ected. Performed at: [facility] [id number] Ceo: Genaro Becerril PhD, Phone: [phone] Immunoglobulin light chains. kappa.free [Mass/volume] in SerumOrdered By: Luke Moran on 04-03-2022 Immunoglobulin light chains.kappa.free (S) [Mass/Vol] 93.9 mg/L 3.3-19.4 [facility] Immunoglobulin light chains. kappa.free/Immunoglobulin light chains.lambda.free [MassOrdered By: Luke Moran on 04-03-2022 Immunoglobulin light chains.kappa.free/Immunoglobulin light chains.lambda.free (S) [Mass ratio] 1.52 0.26-1.65 [facility] Comment on above: Performed at: [address] [id number] Ceo: Genaro Becerril PhD, Phone: [phone] Immunoglobulin light chains. lambda.free [Mass/volume] in Serum or PlasmaOrdered By: Luke Moran on 04-03-2022 Immunoglobulin light chains.lambda.free [Mass/Vol] 61.6 mg/L 5.7-26.3 [facility] Ketones Auto test strip (U) [Mass/Vol]Ordered By: Jair Gabriel on 04-03-2022 Ketones (U) [Mass/Vol] Negative Negative [facility] Laboratory - UrinalysisOrder ed By: Jair Gabriel on 04-03-2022 Hyaline casts LM Ql (Urine sed) 0-8 [LPF] 0-8 [facility] Nitrite Test strip Ql (U)Ord ered By: Jair Gabriel on 04-03-2022 Nitrite Ql (U) Negative Negative [facility] No Panel InformationOrdered By: Luke Moran on 04-03-2022 Hepatitis C Interpretation See comment . [facility] Comment on above: Negative Not infected with HCV, unless recent infection is suspected or other evidence exists to indicate HCV infection. Hepatitis C RNA Quantitative N/A [facility] Serum Immunofixation See comment . [facility] Comment on above: Immunofixation shows IgG monoclonal protein with lambda light chain specificity. Protein Auto test strip (U) [Mass/Vol]Ordered By: Jair Gabriel on 04-03-2022 Protein (U) [Mass/Vol] Negative Negative [facility] Random cortisol measurementO rdered By: Luke Moran on 04-03-2022 Cortisol [Mass/Vol] 5.8 ug/dL [facility] Comment on above: Reference range: AM 6 - 24 ug/dl PM <10 ug/dl Serum hepatitis B virus surf calin antibody detectionOrdered By: Luke Moarn on 04-03-2022 HBV surface Ab Ql (S) Reactive . [facility] Comment on above: Non Reactive: Incons istent with immunity, less than 10 mIU/mL Reactive: Consistent with immunity, greater than 9.9 mIU/mL --- 04/04/22735 --- Hep B Cyndee Ab previously reported as: Non Reactive Non Reactive: Inconsistent with immunity, less than 10 mIU/mL Reactive: Consistent with immunity, greater than 9.9 mIU/mL Serum or plasma hepatitis C virus antibody signal/cutoff ratio by immunoassay (relatiOrdered By: Luke Moran on 04-03-2022 HCV Ab Signal/Cutoff IA [Rel units/Vol] 0.1 s/co ratio 0.0-0.9 [facility] Comment on above: --- 04/04/22735 -- - Hep C Ab previously reported as: <0.1 s/co ratio Specific gravity Auto test s trip (U) [Rel density]Ordered By: Jair Gabriel on 04-03-2022 Specific gravity (U) [Rel density] 1.035 1.001-1.030 [facility] Squamous epithelial cells de tection in urine sediment by light microscopyOrdered By: Jair Gabriel on 04-03-2022 Epithelial cells.squamous LM Ql (Urine sed) None seen [HPF] 0-2 [facility] TSH DL <= 0.005 mIU/L QnOrde red By: Luke Moran on 04-03-2022 TSH Qn 22.19 m[IU]/L 0.45-5.33 [facility] Urine bacteria detection by automated methodOrdered By: Jair Gabriel on 04-03-2022 Bacteria Auto Ql (U) None seen None Seen [facility] Urine clarity by refractomet ry automatedOrdered By: Jair Gabriel on 04-03-2022 Clarity Refractometry automated (U) Clear Clear [facility] Urine glucose measurement by automated test strip (mass/volume)Ordered By: Jair Gabriel on 04-03-2022 Glucose Auto test strip (U) [Mass/Vol] 100 mg/dL Normal [facility] Urine hemoglobin detection b y automated test stripOrdered By: Jair Gabriel on 04-03-2022 Hemoglobin Auto test strip Ql (U) 3+ Ne gative [facility] Urine leukocyte esterase det ection by automated test stripOrdered By: Jair Gabriel on 04-03-2022 Leukocyte esterase Auto test strip Ql (U) Negative Negative [facility] Urobilinogen Auto test strip (U) [Mass/Vol]Ordered By: Jair Gabriel on 04-03-2022 Urobilinogen (U) [Mass/Vol] Normal mg/dL Normal [facility] pH Auto test strip (U)Ordere d By: Jair Gabriel on 04-03-2022 pH (U) 5.0 [pH] 5.0-9.[address] [facility] Activated partial thrombopla stin time (aPTT) in platelet poor plasma by coagulation aOrdered By: Jair Gabriel on 04-02-2022 aPTT Coag (PPP) [Time] 24.8 s 25.1-36.5 [facility] COVID-19 Positive/NegativeOr dered By: Jair Gabriel on 04-02-2022 SARS-CoV-2 (COVID-19) N gene MANJIT+probe Ql (Resp) Negative Negative [facility] Comment on above: Testing for SARS-CoV -2 by RT-PCR This test was developed and its performance characteristics determined by [employer] ([employer]) and validated at the [facility]. This test has not been FDA cleared or approved. This test has been authorized by FDA under an Emergency Use Authorization (EUA). This test has been validated in accordance with the FDA's Guidance Document (Policy for Diagnostics Testing in Laboratories Certified to Perform High Complexity Testing under CLIA prior to Emergency Use Authorization for Coronavirus Disease-2019 during the Public Health Emergency) issued on November 11, 2019. This test is only authorized for the duration of time the declaration that circumstances exist justifying the authorization of the emergency use of in vitro diagnostic tests for detection of SARS-CoV-2 virus and/or diagnosis of COVID-19 infection under section 564(b)(1) of the Act, 21 U.S.C. 360bbb-3(b)(1), unless the authorization is terminated or revoked sooner. COVID-19 SOFIAOrdered By: Tam Gabriel on 04-02-2022 SARS-CoV+SARS-CoV-2 (COVID-1 9) Ag IA.rapid Ql (Resp) Negative Negative [facility] Comment on above: This is a duplicate Cristal SARS Antigen (GONZALO) result to be used for statistical tracking purpose only. Laboratory - Chemistry and C hemistry - challengeOrdered By: Jair Gabriel on 04-02-2022 Natriuretic peptide B (Bld) [Mass/Vol] 55.0 pg/mL 5-100 [facility] Laboratory - CoagulationOrde red By: Jair Gabriel on 04-02-2022 PT Coag (PPP) [Time] 11.9 s 9.0-12.9 [facility] No Panel InformationOrdered By: Luke Moran on 04-02-2022 D-Dimer Quantitative (PE/DVT) 2825 ng/mL 0-243 [facility] Comment on above: The reference range for D-dimer is <243 ng/mL D-dimer units. D-dimer results must be used in conjunction with a clinical pretest probability (PTP) assessment model for deep vein thrombosis (DVT) and pulmonary embolism (PE). Results <230 ng/mL d-dimer units can be used as a negative predictor in patients with low or moderate probability for DVT/PE. Results above the exclusion threshold of 230 ng/ml D-dimer units for DVT/PE may indicate the need for further diagnostic testing. D-Dimer can be increased in hospitalized patients due to co-morbid conditions. No Panel InformationOrdered By: Jair Gabriel on 04-02-2022 SARS Antigen (LFIA) [facility] Platelet poor plasma interna tional normalized ratio (INR) by coagulation assay (relatOrdered By: Jair Gabriel on 04-02-2022 INR Coag (PPP) [Relative time] 1.1 {INR} [facility] Comment on above: INR Therapeutic Rang e A) Pre- and Peroperative OAT started two weeks before surgery. NOT HIP SURGERY: 1.5 - 2.5 HIP SURGERY: 2 - 3 B) Primary and secondary prevention of venous THROMBOSIS: 2 - 3 C) Active venous thrombosis, pulmonary embolism and prevention of recurrent venous thrombosis: 2 - 3 D) Prevention of arterial thromboembolism including patients with mechanical heart valves: 3 - 4.5 Troponin I.cardiac [Mass/vol ume] in Serum or Plasma by High sensitivity methodOrdered By: Jair Gabriel on 04-02-2022 Troponin I.cardiac High sens itivity method [Mass/Vol] 26 pg/mL 0-[address] [facility] Albumin [Mass/volume] in Ser um or PlasmaOrdered By: Sarah Osuna on 03-16-2022 Albumin [Mass/Vol] 1.9 g/dL 3.2-5.5 [facility] Creatinine and Glomerular fi ltration rate.predicted panel (S/P/Bld)Ordered By: Sarah Osuna on 03-16-2022 Creatinine [Mass/Vol] 1.27 mg/dL 0.64-1.27 [facility] Estimated glomerular filtrat ion rate (GFR) non- AmericanOrdered By: Sarah Osuna on 03-16-2022 GFR/1.73 sq M.predicted umang g non-blacks MDRD (S/P/Bld) [Vol rate/Area] 57 mL/Min [facility] Glucose Glucometer (BldC) [M ass/Vol]Ordered By: Xin Phan on 03-16-2022 Glucose [Mass/Vol] 377 mg/dL [facility] Comment on above: Random Glucose Refer ence Range is dependent on time and content of last meal. Glucose of more than 200 mg/dL in a nonstressed, ambulatory subject supports the diagnosis of Diabetes Mellitus. No Panel InformationOrdered By: Sarah Osuna on 03-16-2022 Estimated GFR () > 60 mL/Min [facility] Comment on above: GFR estimated refere nce range: According to KDOQI guidelines, <60 ml/min/1.73m2 is sufficient to diagnose a patient with chronic kidney disease. Pharmacy Creatinine Clearance (Chem 90.76 [facility] Serum or plasma calcium osbaldo urement (mass/volume)Ordered By: Sarah Osuna on 03-16-2022 Calcium [Mass/Vol] 8.4 mg/dL 8.2-10.2 [facility] Serum or plasma chloride judith surement (moles/volume)Ordered By: Sarah Osuna on 03-16-2022 Chloride [Moles/Vol] 99 mmol/L 95-114 [facility] Serum or plasma glucose osbaldo urement (mass/volume)Ordered By: Sarah Osuna on 03-16-2022 Glucose [Mass/Vol] 265 mg/dL 70-100 [facility] Comment on above: Delta: 480 on -1040 ADA recommended reference range Random Glucose Reference Range is dependent on time and content of last meal. Glucose of more than 200 mg/dL in a nonstressed, ambulatory subject supports the diagnosis of Diabetes Mellitus. Serum or plasma potassium me asurement (moles/volume)Ordered By: Xin Phan on 03-16-2022 Potassium [Moles/Vol] 4.0 mmol/L 3.5-5.1 [facility] Serum or plasma sodium measu rement (moles/volume)Ordered By: Sarah Osuna on 03-16-2022 Sodium [Moles/Vol] 132 mmol/L 136-146 [facility] Serum or plasma total carbon dioxide measurement (moles/volume)Ordered By: Sarah Osuna on 03-16-2022 CO2 [Moles/Vol] 25.4 mmol/L 22.0-30.0 [facility] Serum or plasma urea nitroge n measurement (mass/volume)Ordered By: Sarah Osuna on 03-16-2022 Urea nitrogen [Mass/Vol] 24 mg/dL 9-23 [facility] Serum phospholipid phosphoru s measurement (mass/volume)Ordered By: Xin Phan on 03-16-2022 Phospholipid phosphorus (S) [Mass/Vol] 2.0 mg/dL 2.5-4.6 [facility] No Panel InformationOrdered By: Xin Phan on 03-15-2022 Bedside Glucose Comment See comment [facility] Comment on above: Glu2: WILL NOTIFY DR /RN Bedside Glucose #[address] [facility] Automated erythrocytes count in urine sediment (number/area)Ordered By: Sarah Osuna on 03-14-2022 RBC Auto (Urine sed) [#/Area] 0-1 [HPF] 0-4 [facility] Automated leukocytes count i n urine sediment (number/area)Ordered By: Sarah Osuna on 03-14-2022 WBC Auto (Urine sed) [#/Area] 0-1 [HPF] 0-4 [facility] Basophils Auto (Bld) [#/Vol] Ordered By: Leah Huang on 03-14-2022 Basophils (Bld) [#/Vol] 0.0 10*3/uL 0.0-0.2 [facility] Basophils/100 WBC Auto (Bld) Ordered By: Leah Huang on 03-14-2022 Basophils/100 WBC (Bld) 0.2 % . F [facility] Bilirubin Auto test strip Ql (U)Ordered By: Sarah Osuna on 03-14-2022 Bilirubin Ql (U) Negative Negative [facility] Blood hemoglobin measurement (mass/volume)Ordered By: Leah Huang on 03-14-2022 Hemoglobin (Bld) [Mass/Vol] 11.6 g/dL 13.0-17. 0 [facility] Blood leukocytes automated c ount (number/volume)Ordered By: Leah Huang on 03-14-2022 WBC (Bld) [#/Vol] 6.0 10*3/uL 4.5-11.0 [facility] Creatinine [Mass/volume] in UrineOrdered By: Sarah Osuna on 03-14-2022 Creatinine (U) [Mass/Vol] 76.9 mg/dL [facility] Comment on above: No reference range e stablished Eosinophils Auto (Bld) [#/Vo l]Ordered By: Leah Huang on 03-14-2022 Eosinophils (Bld) [#/Vol] 0.1 10*3/uL 0.0-0.45 [facility] Eosinophils/100 WBC Auto (Bl d)Ordered By: Leah Huang on 03-14-2022 Eosinophils/100 WBC (Bld) 1.4 % . [facility] Erythrocyte distribution wid th Auto (RBC) [Ratio]Ordered By: Leah Huang on 03-14-2022 Erythrocyte distribution wid th (RBC) [Ratio] 15.8 % 12.0-14.8 [facility] Globulin Calc (S) [Mass/Vol] Ordered By: Leah Huang on 03-14-2022 Globulin (S) [Mass/Vol] 3.8 g/dL F [facility] Glucose mean value [Mass/vol ume] in Blood Estimated from glycated hemoglobinOrdered By: Leah Huang on 03-14-2022 Average glucose Estimated fr om glycated hemoglobin (Bld) [Mass/Vol] 329 mg/dL [facility] Hematocrit Auto (Bld) [Volum e fraction]Ordered By: Leah Huang on 03-14-2022 Hematocrit (Bld) [Volume fraction] 35.1 % 3 8.8-50.0 [facility] Hemoglobin A1c percentageOrd ered By: Leah Huang on 03-14-2022 HbA1c (Bld) [Mass fraction] 13.1 % 4.3-5.6 [facility] Comment on above: Increased risk for d iabetes: 5.7 - 6.4 diabetes: >6.4 glycemic control for adults with diabetes: <7.0 Ketones Auto test strip (U) [Mass/Vol]Ordered By: Sarah Osuna on 03-14-2022 Ketones (U) [Mass/Vol] Negative Negative [facility] - Hematology and Cell countsOrdered By: Leah Huang on 03-14-2022 Nucleated RBC/100 WBC (Bld) [Ratio] 0.1 % 0-0.5 [facility] - UrinalysisOrder ed By: Sarah Osuna on 03-14-2022 Hyaline casts LM Ql (Urine sed) 0-8 [LPF] 0-8 [facility] Lymphocytes Auto (Bld) [#/Vo l]Ordered By: Leah Huang on 03-14-2022 Lymphocytes (Bld) [#/Vol] 1.4 10*3/uL 1.00-4.8 [facility] Lymphocytes/100 WBC Auto (Bl d)Ordered By: Leah Huang on 03-14-2022 Lymphocytes/100 WBC (Bld) 22.7 % . [facility] MCH Auto (RBC) [Entitic mass ]Ordered By: Leah Huang on 03-14-2022 MCH (RBC) [Entitic mass] 29.9 pg 27.5-35.2 [facility] MCHC Auto (RBC) [Mass/Vol]Or dered By: Leah Huang on 03-14-2022 MCHC (RBC) [Mass/Vol] 33.0 g/dL 32.5-35.6 [facility] MCV Auto (RBC) [Entitic vol] Ordered By: Leah Huang on 03-14-2022 MCV (RBC) [Entitic vol] 90.4 fL 83.5-101 F [facility] Monocytes Auto (Bld) [#/Vol] Ordered By: Leah Huang on 03-14-2022 Monocytes (Bld) [#/Vol] 0.5 10*3/uL 0.0-0.8 [facility] Monocytes/100 WBC Auto (Bld) Ordered By: Leah Huang on 03-14-2022 Monocytes/100 WBC (Bld) 9.0 % . F [facility] Neutrophils Auto (Bld) [#/Vo l]Ordered By: Leah Huang on 03-14-2022 Neutrophils (Bld) [#/Vol] 4.0 10*3/uL 1.8-7.7 [facility] Neutrophils/100 WBC Auto (Bl d)Ordered By: Leah Huang on 03-14-2022 Neutrophils/100 WBC (Bld) 66.7 % . [facility] Platelet mean volume Auto (B ld) [Entitic vol]Ordered By: Leah Huang on 03-14-2022 Platelet mean volume (Bld) [Entitic vol] 8.9 fL 6.6-10.1 [facility] Platelets Auto (Bld) [#/Vol] Ordered By: Leah Huang on 03-14-2022 Platelets (Bld) [#/Vol] 143 10*3/uL 150-450 [facility] Protein Auto test strip (U) [Mass/Vol]Ordered By: Sarah Osuna on 03-14-2022 Protein (U) [Mass/Vol] Negative Negative [facility] Protein [Mass/volume] in Ser um or PlasmaOrdered By: Leah Huang on 03-14-2022 Protein [Mass/Vol] 5.8 g/dL 6.1-7.9 [facility] Protein [Mass/volume] in Uri neOrdered By: Sarah Osuna on 03-14-2022 Protein (U) [Mass/Vol] 13 mg/dL 0-9 [facility] RBC Auto (Bld) [#/Vol]Ordere d By: Leah Huang on 03-14-2022 RBC (Bld) [#/Vol] 3.88 10*6/uL 3.90-5.60 [facility] Serum or plasma alanine vivas otransferase measurement without P-5'-P (enzymatic activiOrdered By: Leah Huang on 03-14-2022 ALT No additional P-5'-P [Ca talytic activity/Vol] 35 U/L 10-60 [facility] Serum or plasma albumin/glob ulin mass ratioOrdered By: Leah Huang on 03-14-2022 Albumin/Globulin [Mass ratio] 0.5 {ratio} [facility] Serum or plasma alkaline dilan sphatase measurement (enzymatic activity/volume)Ordered By: Leah Huang on 03-14-2022 ALP [Catalytic activity/Vol] 120 U/L 32-92 [facility] Serum or plasma aspartate am inotransferase measurement (enzymatic activity/volume)Ordered By: Leah Huang on 03-14-2022 AST [Catalytic activity/Vol] 36 U/L 10-42 [facility] Serum or plasma total biliru bin measurement (mass/volume)Ordered By: Leah Huang on 03-14-2022 Bilirubin [Mass/Vol] 1.0 mg/dL 0.3-1.2 [facility] Squamous epithelial cells de tection in urine sediment by light microscopyOrdered By: Sarah Osuna on 03-14-2022 Epithelial cells.squamous LM Ql (Urine sed) None seen [HPF] 0-2 [facility] Urea nitrogen [Mass/volume] in UrineOrdered By: Leah Huang on 03-14-2022 Urea nitrogen (U) [Mass/Vol] 454 mg/dL Not Est ab. [facility] Comment on above: Performed at: [address] [id number] Ceo: Genaro Becerril PhD, Phone: [phone] Urine appearanceOrdered By: Sarah Osuna on 03-14-2022 Appearance (U) Clear Clear [facility] Urine bacteria detection by automated methodOrdered By: Sarah Osuna on 03-14-2022 Bacteria Auto Ql (U) None seen None Seen [facility] Urine colorOrdered By: Sarah Osuna on 03-14-2022 Color (U) Yellow Yellow [facility] Urine glucose measurement by automated test strip (mass/volume)Ordered By: Sarah Osuna on 03-14-2022 Glucose Auto test strip (U) [Mass/Vol] >=1000 mg/dL Normal [facility] Urine hemoglobin detection b y automated test stripOrdered By: Sarah Osuna on 03-14-2022 Hemoglobin Auto test strip Ql (U) 2+ Ne gative [facility] Urine leukocyte esterase det ection by automated test stripOrdered By: Sarah Osuna on 03-14-2022 Leukocyte esterase Auto test strip Ql (U) Negative Negative [facility] Urine nitrite detection by a utomated test stripOrdered By: Sarah Osuna on 03-14-2022 Nitrite Auto test strip Ql (U) Negative Negat greta [facility] Urine protein/creatinine rat ioOrdered By: Sarah Osuna on 03-14-2022 Protein/Creatinine (U) [Ratio] 169 mg/g{Cre} 0- 200 [facility] Urine sodium measurement (mo les/volume)Ordered By: Leah Huang on 03-14-2022 Sodium (U) [Moles/Vol] 20 mmol/L [facility] Comment on above: No reference range e stablished Urobilinogen Auto test strip (U) [Mass/Vol]Ordered By: Sarah Osuna on 03-14-2022 Urobilinogen (U) [Mass/Vol] Normal mg/dL Normal [facility] Yeast detection in urine sed iment by light microscopyOrdered By: Sarah Osuna on 03-14-2022 Yeast LM Ql (Urine sed) Budding yeast [HPF] Non e Seen [facility] Comment on above: 1+ BUDDING YEAST pH Auto test strip (U)Ordere d By: Sarah Osuna on 03-14-2022 pH (U) 1.020 [pH] 1.001-1.030 [facility] pH (U) 5.5 [pH] 5.0-9.[address] [facility] POINT OF CARE GLUCOSEon 01-10 Glucose [Mass/Vol] 161 mg/dL Critically high [facility]106 [facility] Comment on above: Performed By: #### T STEFF, BMP #### [facility] [address] [place] [address] Dr. Ladan Diehl POINT OF CARE GLUCOSEon 01-09 Glucose [Mass/Vol] 358 mg/dL Critically high [address] [place] [address] Comment on above: Performed By: #### A 1C #### [facility] [address] [place] [address] Dr. Ladan Diehl Glucose [Mass/Vol] 279 mg/dL Critically high [address] [place] [address] Comment on above: Performed By: #### A 1C #### [facility] [address] [place] [address] Dr. Ladan Diehl Glucose [Mass/Vol] 247 mg/dL Critically high [address] [place] [address] Comment on above: Performed By: #### T STEFF, BMP #### [facility] [address] [place] [address] Dr. Ladan Diehl Glucose [Mass/Vol] 357 mg/dL Critically high [address] [place] [address] Comment on above: Performed By: #### A 1C #### [facility] [address] [place] [address] Dr. Ladan Diehl PROF CHEM 8 (BAS METB)on Anion gap [Moles/Vol] 11.1 mmol/L Normal [facility] Comment on above: Performed By: #### T STEFF, BMP #### [facility] [address] [place] [address] Dr. Ladan Diehl Calcium [Mass/Vol] 8.8 mg/dL Normal 8.5-10.1 [facility] Comment on above: Performed By: #### T STEFF, BMP #### [facility] [address] [address] [address] Ladan Diehl Chloride [Moles/Vol] 99 mmol/L Normal 98-107 [facility] Comment on above: Performed By: #### T SH, BMP #### [facility] [address] [address] [address] Ladan Diehl CO2 [Moles/Vol] 27.2 mmol/L Normal 21.0-32.0 [facility] Comment on above: Performed By: #### T SH, BMP #### [facility] [address] [place] [address] Dr. Ladan Diehl Creatinine [Mass/Vol] 1.59 mg/dL Critically high 0.70-1.30 [facility] Comment on above: Performed By: #### T SH, BMP #### [facility] [address] [place] [address] Dr. Ladan Diehl EGFR-AF CAMEROONIAN 53 mL/min/1.73m2 Critically low >=60 [facility] Comment on above: Performed By: #### T SH, BMP #### [facility] [address] [place] [address] Dr. Ladan Diehl EGFR-NON AF CAMEROONIAN 44 mL/min/1.73m2 Critically low >=60 [facility] Comment on above: Performed By: #### T SH, BMP #### [facility] [address] [place] [address] Dr. Ladan Diehl Glucose [Mass/Vol] 284 mg/dL Critically high 74-106 [facility] Comment on above: Performed By: #### T SH, BMP #### [facility] [address] [place] [address] Dr. Ladan Diehl Potassium [Moles/Vol] 4.2 mmol/L Normal 3.5-5.1 [facility] Comment on above: Performed By: #### T SH, BMP #### [facility] [address] [place] [address] Dr. Ladan Diehl Sodium [Moles/Vol] 133 mmol/L Critically low 136-145 [facility] Comment on above: Performed By: #### T SH, BMP #### [facility] [address] [address] [address] Ladan Diehl Urea nitrogen [Mass/Vol] 22.0 mg/dL Critically high 7.0-18 .0 [facility] Comment on above: Performed By: #### T SH, BMP #### [facility] [address] [address] [address] Ladan Diehl Urea nitrogen/Creatinine [Mass ratio] 13.8 mg/mg Normal [facility] Comment on above: Performed By: #### T SH, BMP #### [facility] [address] [address] [address] Ladan Diehl TROPONIN, HIGH SENSITIVITYon 01-24-2022 HSTROP 13.7 pg/mL Normal 4.0-76.1 [facility] Comment on above: Result Comment: CUT- OFF POINTS HAVE BEEN ESTABLISHED BASED ON THE FOURTH UNIVERSAL DEFINITIONS OF MYOCARDIAL INFARCTION. THE UPPER REFERENCE LIMIT (URL) OF TROPONIN, DEFINED THE 99TH PERCENTILE OF cTnI DISTRIBUTION IN A REFERENCE POPULATION, HAS BEEN CONFIRMED THE DECISION THRESHOLD FOR TX DIAGNOSIS. Performed By: #### H STROPN #### [facility] [address] [address] [address] Ladan Diehl TSHon 01-24-2022 TSH 0.381 uIU/mL Normal 0.358-3.740 [facility] Comment on above: Performed By: #### T SH, BMP #### [facility] [address] [address] [address] Ladan Diehl US LIT DOP LEG BILon 022 US LIT DOP LEG NICKO EXAMINATION: US LIT DOP LEG NICKO HISTORY: Swelling of lower leg COMPARISON: No relevant comparison available. FINDINGS: REGION: Bilateral lower extremities THROMBI: Within left small saphenous vein. COMPRESSIBILITY: Normal compressibility of the deep veins. FLOW: Deep veins demonstrate normal waveform and antegrade flow between 5 and 20 cm/s. OTHER: None. IMPRESSION: 1. No deep vein thrombus within the right or left lower extremity. 2. Thrombus within the left small saphenous vein; chronic versus acute superficial thrombophlebitis. Electronically authenticated by: CAROL YIP Date: 2022-01-24 09:51 Normal [facility] l BNPon 01-23-2022 Natriuretic peptide B (Bld) [Mass/Vol] 262.0 pg/mL Normal <=900.0 [facility] Comment on above: Performed By: #### A 1C #### [facility] [address] [place] [address] Dr. Ladan Diehl CBC AUTO DIFFon 01-23-2022 BASO # 0.1 103/ul Normal 0.0-0.1 [facility] Comment on above: Performed By: #### T SH, BMP #### [facility] [address] [place] [address] Dr. Ladan Diehl Basophils/100 WBC (Bld) 0.8 % Normal 0.2-2.0 [facility] Comment on above: Performed By: #### T SH, BMP #### [facility] [address] [place] [address] Dr. Ladan Diehl EO # 0.3 103/ul Normal 0.0-0.7 [facility] Comment on above: Performed By: #### T SH, BMP #### [facility] [address] [place] [address] Dr. Ladan Diehl Eosinophils/100 WBC (Bld) 4.4 % Normal 0.9-7.0 [facility] Comment on above: Performed By: #### T SH, BMP #### [facility] [address] [place] [address] Dr. Ladan Diehl Erythrocyte distribution wid th (RBC) [Ratio] 14.0 % Normal 11.0-15.0 [facility] Comment on above: Performed By: #### T SH, BMP #### [facility] [address] [place] [address] Dr. Ladan Diehl Hematocrit (Bld) [Volume fraction] 38.3 % Critically low 42.0-54.0 [facility] Comment on above: Performed By: #### T SH, BMP #### [facility] [address] [place] [address] Dr. Ladan Diehl Hemoglobin (Bld) [Mass/Vol] 12.0 g/dL Critically low 14.0 -18.0 [facility] Comment on above: Performed By: #### T SH, BMP #### [facility] [address] [place] [address] Dr. Ladan Diehl IG # 0.03 10e3/ul Normal 0.00-0.03 [facility] Comment on above: Performed By: #### T SH, BMP #### [facility] [address] [place] [address] Dr. Ladan Diehl IG % 0.5 % Normal 0.0-0.5 [facility] Comment on above: Performed By: #### T SH, BMP #### [facility] [address] [place] [address] Dr. Ladan Diehl LYMPH # 1.2 103/ul Normal 1.2-3.8 [facility] Comment on above: Performed By: #### T SH, BMP #### [facility] [address] [place] [address] Dr. Ladan Diehl Lymphocytes/100 WBC (Bld) 20.2 % Critically low 20.5-6 0.0 [facility] Comment on above: Performed By: #### T SH, BMP #### [facility] [address] [place] [address] Dr. Ladan Diehl MANUAL DIFF REQ NO Normal [facility] Comment on above: Performed By: #### T SH, BMP #### [facility] [address] [place] [address] Dr. Ladan Diehl MCH (RBC) [Entitic mass] 29.6 pg Normal 25.9-34.0 [facility] Comment on above: Performed By: #### T SH, BMP #### [facility] [address] [place] [address] Dr. Ladan Diehl MCHC (RBC) [Mass/Vol] 31.3 g/dL Normal 29.9-35.2 [facility] Comment on above: Performed By: #### T SH, BMP #### [facility] [address] [place] [address] Dr. Ladan Diehl MCV (RBC) [Entitic vol] 94.6 fL Critically high 80.0-94 .0 [facility] Comment on above: Performed By: #### T SH, BMP #### [facility] [address] [place] [address] Dr. Ladan Diehl MONO # 0.7 103/ul Normal 0.3-0.8 [facility] Comment on above: Performed By: #### T SH, BMP #### [facility] [address] [place] [address] Dr. Ladan Diehl Monocytes/100 WBC (Bld) 10.7 % Normal 1.7-12.0 [facility] Comment on above: Performed By: #### T SH, BMP #### [facility] [address] [place] [address] Dr. Ladan Diehl NEUT # 3.9 103/ul Normal 1.4-6.5 [facility] Comment on above: Performed By: #### T SH, BMP #### [facility] [address] [place] [address] Dr. Ladan Diehl Neutrophils/100 WBC (Bld) 63.4 % Normal 43.0-75.0 [facility] Comment on above: Performed By: #### T SH, BMP #### [facility] [address] [place] [address] Dr. Ladan Diehl Platelet mean volume (Bld) [ Entitic vol] 10.0 fL Normal 9.5-13.5 [facility] Comment on above: Performed By: #### T SH, BMP #### [facility] [address] [place] [address] Dr. Ladan Diehl PLT 171 103/ul Normal 150-450 [facility] Comment on above: Performed By: #### T SH, BMP #### [facility] [address] [place] [address] Dr. Ladan Diehl RBC 4.05 106/ul Critically low 4.70-6.10 [facility] Comment on above: Performed By: #### T SH, BMP #### [facility] [address] [place], [place] [address] Dr. Ladan Diehl WBC 6.1 103/ul Normal 4.0-11.0 [facility] Comment on above: Performed By: #### T , [facility] #### [facility] [address] [place], [place] [address] Dr. Ladan Diehl CTA CHEST WO W CONon 022 CTA CHEST WO W CON EXAM: CTA chest. CLINICAL SYMPTOMS: Male, 66 years, Pulmonary embolism. COMPARISONS: Chest radiograph 01/18/2022. TECHNIQUE: Helical CTA of the pulmonary arteries was performed following rapid injection of intravenous contrast with coronal and sagittal MIP images following the administration of 100 mL Omnipaque 350 IV contrast. Dose reduction techniques were achieved by using automated exposure control and/or adjustment of mA and/or KVP according to patient size and/or use of iterative reconstruction technique. CTA: There is no large or central pulmonary embolism. The contrast bolus is somewhat limited for evaluation of the peripheral/distal pulmonary arteries. There is no thoracic aortic dissection or aneurysm identified. There is calcification of the aortic arch with mild tortuosity. CT CHEST: There is mild atelectasis at the left lung base. There is no pleural effusion. No mediastinal or hilar adenopathy. Heart size is normal. Density along the LAD suggests a coronary artery stent. The liver contour is somewhat nodular, question cirrhosis. There is a small low-attenuation lesion in the spleen, which may represent a cyst or hemangioma. IMPRESSION: Contrast bolus is slightly limited. No large or central pulmonary embolism. No aortic dissection. Atherosclerotic vascular changes. Cirrhosis. Additional nonacute findings, as detailed above. Electronically authenticated by: XIN BUI Date: 2022-01-23 19:35 Normal [facility] Covid-19 PCR (CVDTBH)on 01-09 SARS-CoV-2 (COVID-19) RNA MANJIT+probe Ql (Unsp spec) Not detected Normal NOT DETECTED [facility] Comment on above: Result Comment: When diagnostic testing is negative, the possibility of a false negative should be considered in the context of a patient's recent exposures and the presence of clinical signs and symptoms consistent with SARS-CoV-2. This test is not yet approved or cleared by the [place] FDA. When there are no FDA-approved or cleared tests available, and other criteria are met, FDA can make tests available under an emergency access mechanism called an Emergency Use Authorization (EUA). The EUA for this test is supported by the Ticket Machine Operator of Health and Human Service's declaration that circumstances exist to justify the emergency use of in vitro diagnostics for the detection and/or diagnosis of the virus that causes COVID-19. This EUA will remain in effect for the duration of the COVID-19 declaration justifying emergency of IVDs, unless it is terminated or revoked by the FDA (after which the test may no longer be used). Performed By: #### A 1C #### [facility] [address] [place] [address] Dr. Ladan Diehl LACTATE/LACTIC ACIDon 2021 Lactate [Moles/Vol] 1.6 mmol/L Normal 0.4-1.9 [facility] Comment on above: Performed By: #### L ACT #### [facility] [address] [place] [address] Dr. Ladan Diehl PROF 14(COMP METB)on 022 Albumin [Mass/Vol] 2.7 g/dL Critically low 3.4-5.0 [facility] Comment on above: Performed By: #### A 1C #### [facility] [address] [place] [address] Dr. Ladan Diehl Albumin/Globulin [Mass ratio] 0.5 {ratio} Normal [facility] Comment on above: Performed By: #### A 1C #### [facility] [address] [place] [address] Dr. Ladan Diehl ALP [Catalytic activity/Vol] 120 U/L Critically high 46 -116 [facility] Comment on above: Performed By: #### A 1C #### [facility] [address] [place] [address] Dr. Ladan Diehl ALT [Catalytic activity/Vol] 23 U/L Normal 16-63 [facility] Comment on above: Performed By: #### A 1C #### [facility] [address] [place] [address] Dr. Ladan Diehl Anion gap [Moles/Vol] 10.3 mmol/L Normal Th [facility] Comment on above: Performed By: #### A 1C #### [facility] [address] [address] [address] Ladan Diehl AST [Catalytic activity/Vol] 29 U/L Normal 15-37 [facility] Comment on above: Performed By: #### A 1C #### [facility] [address] [address] [address] Ladan Diehl Bilirubin [Mass/Vol] 1.0 mg/dL Normal 0.2-1.0 [facility] Comment on above: Performed By: #### A 1C #### [facility] [address] [address] [address] Ladan Diehl Calcium [Mass/Vol] 8.8 mg/dL Normal 8.5-10.1 [facility] Comment on above: Performed By: #### A 1C #### [facility] [address] [address] [address] Ladan Diehl Chloride [Moles/Vol] 101 mmol/L Normal 98-107 [facility] Comment on above: Performed By: #### A 1C #### [facility] [address] [address] [address] Ladan Diehl CO2 [Moles/Vol] 30.8 mmol/L Normal 21.0-32.0 [facility] Comment on above: Performed By: #### A 1C #### [facility] [address] [address] [address] Ladan Diehl Creatinine [Mass/Vol] 1.40 mg/dL Critically high 0.70-1.30 [facility] Comment on above: Performed By: #### A 1C #### [facility] [address] [address] [address] Ladan Diehl EGFR-AF CAMEROONIAN >60 Normal >=60 [facility] Comment on above: Performed By: #### A 1C #### [facility] [address] [address] [address] Ladan Diehl EGFR-NON AF CAMEROONIAN 51 mL/min/1.73m2 Critically low >=60 [facility] Comment on above: Performed By: #### A 1C #### [facility] [address] [address] [address] Ladan Diehl Globulin (S) [Mass/Vol] 5.3 g/dL Normal [facility] Comment on above: Performed By: #### A 1C #### [facility] [address] [address] [address] Ladan Diehl Glucose [Mass/Vol] 125 mg/dL Critically high 74-106 [facility] Comment on above: Performed By: #### A 1C #### [facility] [address] [address] [address] Ladan Diehl Potassium [Moles/Vol] 4.1 mmol/L Normal 3.5-5.1 [facility] – [facility] Comment on above: Performed By: #### A 1C #### [facility] [address] [place] [address] Dr. Ladan Diehl Protein [Mass/Vol] 8.0 g/dL Normal 6.4-8.2 [facility] Comment on above: Performed By: #### A 1C #### [facility] [address] [place] [address] Dr. Ladan Diehl Sodium [Moles/Vol] 138 mmol/L Normal 136-145 [facility] Comment on above: Performed By: #### A 1C #### [facility] [address] [place] [address] Dr. Ladan Diehl Urea nitrogen [Mass/Vol] 20.0 mg/dL Critically high 7.0-18 .0 [facility] Comment on above: Performed By: #### A 1C #### [facility] [address] [place] [address] Dr. Ladan Diehl Urea nitrogen/Creatinine [Mass ratio] 14.3 mg/mg Normal [facility] Comment on above: Performed By: #### A 1C #### [facility] [address] [place] [address] Dr. Ladan Diehl PROTIMEon 01-23-2022 INR Coag (PPP) [Relative time] 1.02 {INR} Normal [facility] Comment on above: Performed By: #### P T, PTT #### [facility] [address] [place] [address] Dr. Ladan Diehl INR GUIDELINES SEE BELOW Normal [facility] Comment on above: Result Comment: KALI RED INR: 2.0 - 3.0 CONDITIONS NOT LISTED BELOW 2.5 - 3.5 FOR PROSTHETIC HEART VALVE REPLACEMENT 2.5 - 3.5 RECURRENT THROMBOSIS Performed By: #### P T, PTT #### [facility] [address] [place] [address] Dr. Ladan Diehl PT Coag (PPP) [Time] 11.0 s Normal 9.0-11.6 [facility] Comment on above: Performed By: #### P T, PTT #### [facility] [address] [place] [address] Dr. Ladan Diehl PTTon 01-23-2022 aPTT Coag (Bld) [Time] 27.6 s Normal 22.3-36.2 [facility] Comment on above: Performed By: #### P T, PTT #### [facility] [address] [place] [address] Dr. Ladan Diehl TROPONIN, HIGH SENSITIVITYon 01-23-2022 HSTROP 10.4 pg/mL Normal 4.0-76.1 [facility] Comment on above: Result Comment: CUT- OFF POINTS HAVE BEEN ESTABLISHED BASED ON THE FOURTH UNIVERSAL DEFINITIONS OF MYOCARDIAL INFARCTION. THE UPPER REFERENCE LIMIT (URL) OF TROPONIN, DEFINED THE 99TH PERCENTILE OF cTnI DISTRIBUTION IN A REFERENCE POPULATION, HAS BEEN CONFIRMED THE DECISION THRESHOLD FOR TX DIAGNOSIS. Performed By: #### A 1C #### [facility] [address] [place] [address] ABD/PELV W CONon 01-20-20 CT ABD/PELV W CON EXAMINATION: CT ABD/ PELV W CON HISTORY:Fall with left abdominal pain COMPARISON: 02/23/2021 TECHNIQUE: Helical CT of the abdomen and pelvis with intravenous contrast. Dose reduction techniques were achieved by using automated exposure control and/or adjustment of mA and/or kV according to patient size and/or use of iterative reconstruction technique. FINDINGS: TUBES AND IMPLANTS: None LOWER CHEST: Unremarkable ABDOMEN and PELVIS ABDOMINAL WALL AND SOFT TISSUES: Unremarkable. BONES: No acute fracture or dislocation. Multilevel degenerative changes of the spine. ARTERIES: Mild aortoiliac calcifications without aortic aneurysm. Right common iliac artery aneurysm measuring 1.9 centimeters VEINS: Unremarkable. LYMPH NODES: Unremarkable. PERITONEUM/ RETROPERITONEUM: Unremarkable. BOWEL: Unremarkable. APPENDIX: No unremarkable LIVER: Nodular contour GALLBLADDER: Surgically absent BILE DUCTS: Not dilated SPLEEN: Small posterior hypodensity, likely a cyst or hemangioma. Splenule. PANCREAS: Unremarkable. ADRENALS: Unremarkable. KIDNEYS/ URETERS: Unremarkable. REPRODUCTIVE ORGANS: Coarse prostatic calcifications URINARY BLADDER: Mildly filled IMPRESSION: No evidence of traumatic injury to the abdomen or pelvis. Right common iliac artery aneurysm measuring 1.9 centimeters, stable. Nodular contour of the liver suggesting cirrhosis. Other chronic findings as described above. Electronically authenticated by: TANNER PEDRAZA Date: 2022-01-18 23:39 Normal [facility] XR CHEST 1 Von 01-19-2022 XR CHEST 1 V EXAM: Chest x-ray HISTORY: . COUGH . COMPARISON: None. TECHNIQUE: AP portable upright view of the chest FINDINGS: Film is underpenetrated. Heart and vascularity are unremarkable. Lungs are free of focal infiltrates. EKG leads overlie the chest. IMPRESSION: 1. Underpenetrated chest. 2. No acute heart or lung disease identified. Electronically authenticated by: ROSELIA RIVERA Date: 2022-01-18 22:16 Normal [facility] XR KNEE LT 4V or >on 022 XR KNEE LT 4V or > EXAM: XR KNEE LT 4V or > HISTORY: Pain COMPARISON: None. TECHNIQUE: 4 views of the left knee FINDINGS: No acute fracture is seen. Joint alignment is normal. Joint spaces are preserved. Soft tissues are unremarkable. No significant joint effusion is seen. IMPRESSION: No acute fracture or malalignment. Electronically authenticated by: JENNIFER CASTILLO Date: 2022-01-18 23:06 Normal [facility] CBC AUTO DIFFon 01-18-2022 BASO # 0.1 103/ul Normal 0.0-0.1 [facility] Comment on above: Performed By: #### C BC #### [facility] [address] [place] [address] Dr. Ladan Diehl Basophils/100 WBC (Bld) 0.8 % Normal 0.2-2.0 [facility] Comment on above: Performed By: #### C BC #### [facility] [address] [place] [address] Dr. Ladan Diehl EO # 0.4 103/ul Normal 0.0-0.7 [facility] Comment on above: Performed By: #### C BC #### [facility] [address] [place] [address] Dr. Ladan Diehl Eosinophils/100 WBC (Bld) 4.3 % Normal 0.9-7.0 [facility] Comment on above: Performed By: #### C BC #### [facility] [address] [place] [address] Dr. Ladan Diehl Erythrocyte distribution wid th (RBC) [Ratio] 14.4 % Normal 11.0-15.0 [facility] Comment on above: Performed By: #### C BC #### [facility] [address] [place] [address] Dr. Ladan Diehl Hematocrit (Bld) [Volume fraction] 37.2 % Critically low 42.0-54.0 [facility] Comment on above: Performed By: #### C BC #### [facility] [address] [place] [address] Dr. Ladan Diehl Hemoglobin (Bld) [Mass/Vol] 11.9 g/dL Critically low 14.0 -18.0 [facility] Comment on above: Performed By: #### C BC #### [facility] [address] [place] [address] Dr. Ladan Diehl IG # 0.04 10e3/ul Critically high 0.00-0.03 [facility] Comment on above: Performed By: #### C BC #### [facility] [address] [place] [address] Dr. Ladan Diehl IG % 0.5 % Normal 0.0-0.5 [facility] Comment on above: Performed By: #### C BC #### [facility] [address] [place] [address] Dr. Ladan Diehl LYMPH # 2.2 103/ul Normal 1.2-3.8 [facility] Comment on above: Performed By: #### C BC #### [facility] [address] [place] [address] Dr. Ladan Diehl Lymphocytes/100 WBC (Bld) 26.2 % Normal 20.5-60.0 [facility] Comment on above: Performed By: #### C BC #### [facility] [address] [place] [address] Dr. Ladan Diehl MANUAL DIFF REQ NO Normal [facility] Comment on above: Performed By: #### C BC #### [facility] [address] [place] [address] Dr. Ladan Diehl MCH (RBC) [Entitic mass] 30.4 pg Normal 25.9-34.0 [facility] Comment on above: Performed By: #### C BC #### [facility] [address] [place] [address] Dr. Ladan Diehl MCHC (RBC) [Mass/Vol] 32.0 g/dL Normal 29.9-35.2 [facility] Comment on above: Performed By: #### C BC #### [facility] [address] [place] [address] Dr. Ladan Diehl MCV (RBC) [Entitic vol] 94.9 fL Critically high 80.0-94 .0 [facility] Comment on above: Performed By: #### C BC #### [facility] [address] [place] [address] Dr. Ladan Diehl MONO # 0.9 103/ul Critically high 0.3-0.8 [facility] Comment on above: Performed By: #### C BC #### [facility] [address] [place] [address] Dr. Ladan Diehl Monocytes/100 WBC (Bld) 10.3 % Normal 1.7-12.0 [facility] Comment on above: Performed By: #### C BC #### [facility] [address] [place], [place] [id number] Dr. Ladan Diehl NEUT # 5.0 103/ul Normal 1.4-6.5 [facility] Comment on above: Performed By: #### C BC #### [facility] [address] [address] [address] Ladan Diehl Neutrophils/100 WBC (Bld) 57.9 % Normal 43.0-75.0 [facility] Comment on above: Performed By: #### C BC #### [facility] [address] [address] [address] Ladan Diehl Platelet mean volume (Bld) [Entitic vol] 9.9 fL Normal 9.5-13.5 [facility] Comment on above: Performed By: #### C BC #### [facility] [address] [place] [address] Dr. Ladan Diehl PLT 180 103/ul Normal 150-450 [facility] Comment on above: Performed By: #### C BC #### [facility] [address] [place] [address] Dr. Ladan Diehl RBC 3.92 106/ul Critically low 4.70-6.10 [facility] Comment on above: Performed By: #### C BC #### [facility] [address] [place] [address] Dr. Ladan Diehl WBC 8.6 103/ul Normal 4.0-11.0 [facility] Comment on above: Performed By: #### C BC #### [facility] [address] [address] [address] Ladan Diehl PROF 14(COMP METB)on 022 Albumin [Mass/Vol] 2.6 g/dL Critically low 3.4-5.0 [facility] Comment on above: Performed By: #### C MP #### [facility] [address] [place] [address] Dr. Ladan Diehl Albumin/Globulin [Mass ratio] 0.5 {ratio} Normal [facility] Comment on above: Performed By: #### C MP #### [facility] [address] [place] [address] Dr. Ladan Diehl ALP [Catalytic activity/Vol] 184 U/L Critically high 46 -116 [facility] Comment on above: Performed By: #### C MP #### [facility] [address] [place] [address] Dr. Ladan Diehl ALT [Catalytic activity/Vol] 24 U/L Normal 16-63 [facility] Comment on above: Performed By: #### C MP #### [facility] [address] [place] [address] Dr. Ladan Diehl Anion gap [Moles/Vol] 10.1 mmol/L Normal [facility] Comment on above: Performed By: #### C MP #### [facility] [address] [place] [address] Dr. Ladan Diehl AST [Catalytic activity/Vol] 22 U/L Normal 15-37 [facility] Comment on above: Performed By: #### C MP #### [facility] [address] [place] [address] Dr. Ladan Diehl Bilirubin [Mass/Vol] 0.5 mg/dL Normal 0.2-1.0 [facility] Comment on above: Performed By: #### C MP #### [facility] [address] [place] [address] Dr. Ladan Diehl Calcium [Mass/Vol] 8.6 mg/dL Normal 8.5-10.1 [facility] Comment on above: Performed By: #### C MP #### [facility] [address] [place] [address] Dr. Ladan Diehl Chloride [Moles/Vol] 101 mmol/L Normal 98-107 [facility] Comment on above: Performed By: #### C MP #### [facility] [address] [place] [address] Dr. Ladan Diehl CO2 [Moles/Vol] 30.9 mmol/L Normal 21.0-32.0 [facility] Comment on above: Performed By: #### C MP #### [facility] [address] [place] [address] Dr. Ladan Diehl Creatinine [Mass/Vol] 1.72 mg/dL Critically high 0.70-1.30 [facility] Comment on above: Performed By: #### C MP #### [facility] [address] [address] [address] Ladan Diehl EGFR-AF CAMEROONIAN 49 mL/min/1.73m2 Critically low >=60 [facility] Comment on above: Performed By: #### C MP #### [facility] [address] [address] [address] Ladan Diehl EGFR-NON AF CAMEROONIAN 40 mL/min/1.73m2 Critically low >=60 [facility] Comment on above: Performed By: #### C MP #### [facility] [address] [address] [address] Ladan Diehl Globulin (S) [Mass/Vol] 5.2 g/dL Normal [facility] Comment on above: Performed By: #### C MP #### [facility] [address] [address] [address] Ladan Diehl Glucose [Mass/Vol] 253 mg/dL Critically high 74-106 [facility] Comment on above: Performed By: #### C MP #### [facility] [address] [address] [address] Ladan Diehl Potassium [Moles/Vol] 4.0 mmol/L Normal 3.5-5.1 [facility] Comment on above: Performed By: #### C MP #### [facility] [address] [address] [address] Ladan Diehl Protein [Mass/Vol] 7.8 g/dL Normal 6.4-8.2 [facility] Comment on above: Performed By: #### C MP #### [facility] [address] [address] [address] Ladan Diehl Sodium [Moles/Vol] 138 mmol/L Normal 136-145 [facility] Comment on above: Performed By: #### C MP #### [facility] [address] [address] [address] Ladan Diehl Urea nitrogen [Mass/Vol] 30.0 mg/dL Critically high 7.0-18 .0 [facility] Comment on above: Performed By: #### C MP #### [facility] [address] [place] [address] Dr. Ladan Diehl Urea nitrogen/Creatinine [Mass ratio] 17.4 mg/mg Normal [facility] Comment on above: Performed By: #### C MP #### [facility] [address] [address] [address] Ladan Diehl Vital Signs Date Time Vital Sign Value Performing Clinician Faci lity 05-01-2022 06:00-0400 Diastolic blood pressure 58 mm[Hg] [facility] 05-01-2022 06:00-0400 Heart rate 89 /min [facility]-01-[facility] 06:00-0400 Respiratory rate 20 /min [facility] 05-01-2022 06:00-0400 SaO2% (BldA) [Mass fraction] 91 % [facility] Comment on above: 2 L NC at baseline 05-01-2022 06:00-0400 Systolic blood pressure 86 mm[Hg] [facility] 04-12-2022 15:01-0400 Body temperature 98.3 [degF] MD Ayden Freeman Work Phone: [facility] 04-12-2022 15:01-0400 Diastolic blood pressure 68 mm[Hg] MD Ayden Freeman Work Phone: [facility] 04-12-2022 15:01-0400 Heart rate 90 /min MD Ayden Freeman Work Phone: [facility] 04-12-2022 15:01-0400 Respiratory rate 20 /min MD Ayden Freeman Work Phone: [facility] 04-12-2022 15:01-0400 SaO2% (BldA) [Mass fraction] 92 % MD Ayden Freeman Work Phone: [facility] 04-12-2022 15:01-0400 Systolic blood pressure 130 mm[Hg] MD Ayden Freeman Work Phone: [facility] 04-12-2022 10:48-0400 Body height 177.8 cm MD Ayden Freeman Work Phone: [facility] 04-12-2022 10:48-0400 Body weight 154.22 kg MD Ayden Freeman Work Phone: [facility] 04-09-2022 12:00-0400 Diastolic blood pressure 81 mm[Hg] MD Ayden Freeman Work Phone: [facility] 04-09-2022 12:00-0400 Heart rate 99 /min MD Ayden Freeman Work Phone: [facility] 04-09-2022 12:00-0400 Inhaled oxygen flow rate 2 L/min MD Ayden Freeman Work Phone: [facility] 04-09-2022 12:00-0400 Respiratory rate 18 /min MD Ayden Freeman Work Phone: [facility] 04-09-2022 12:00-0400 SaO2% (BldA) [Mass fraction] 98 % MD Ayden Fremean Work Phone: [facility] 04-09-2022 12:00-0400 Systolic blood pressure 127 mm[Hg] MD Ayden Freeman Work Phone: [facility] 04-09-2022 05:22-0400 Body weight 162 kg MD Ayden Freeman Work Phone: [facility] 04-08-2022 20:00-0400 Inhaled oxygen concentration 30 % MD Ayden Freeman Work Phone: [facility] 04-08-2022 14:56-0400 Body height 177.8 cm MD Ayden Freeman Work Phone: [facility] 04-08-2022 08:11-0400 Body temperature 98 [degF] MD Ayden Freeman Work Phone: [facility] 03-16-2022 11:59-0400 Diastolic blood pressure 90 mm[Hg] MD Ayden Freeman Work Phone: [facility] 03-16-2022 11:59-0400 Heart rate 95 /min MD Ayden Freeman Work Phone: [facility] 03-16-2022 11:59-0400 Respiratory rate 18 /min MD Ayden Freeman Work Phone: [facility] 03-16-2022 11:59-0400 SaO2% (BldA) [Mass fraction] 95 % MD Ayden Freeman Work Phone: [facility] 03-16-2022 11:59-0400 Systolic blood pressure 147 mm[Hg] MD Ayden Freeman Work Phone: [facility] 03-16-2022 08:07-0400 Body temperature 97.8 [degF] MD Ayden Freeman Work Phone: [facility] 03-16-2022 06:00-0400 Body weight 163.5 kg MD Ayden Freeman Work Phone: [facility] 03-14-2022 17:24-0400 Body height 177.8 cm MD Ayden Freeman Work Phone: [facility] 03-14-2022 16:00-0400 Inhaled oxygen flow rate 1 L/min MD Ayden Freeman Work Phone: [facility] Encounters Encounter Date Encounter Type Care Provider Facility Start: 12-19-2022 End: 12-20-[address] AYDEN FREEMAN Facility:[facility] Start: 06-05-2022 End: 06-06-[address] AYDEN FREEMAN Facility:[facility] Start: 05-29-2022 End: 06-01-[address] AYDEN FREEMAN Facility:[facility] Start: 05-17-2022 End: 05-17-[address] CAROL YIP Facility:[facility] Start: 05-03-2022 [facility] Start[facility] 05-01-2022 End: 05-04-2022 ambulatory UNKNOWN PROVIDER Facility:[facility] Start: 05-01-2022 End: 05-01-2022 ambulatory [facility] Triage, Treat and Transport Start: 05-01-2022 End: 05-01-2022 Emergency department patient visit [facility] Emergency Triage, Treat and Transport Comment on above: Arrived Start: 04-24-2022 End: 04-30-2022 ambulatory UNKNOWN PROVIDER Facility:[facility] Start: 04-12-2022 End: 04-12-2022 Emergency department patient visit Ramesh Byrd Facility:[facility] Start: 04-12-2022 End: 04-12-2022 Emergency department patient visit MD Ayden Freeman Work Phone: [facility] Start: 04-10-2022 End: 04-17-2022 ambulatory UNKNOWN PROVIDER Facility:[facility] Start: 04-02-2022 End: 04-09-2022 Evaluation and management of inpatient MD Ayden Freeman Work Phone: [facility] Start: 03-15-[address] AYDEN FREEMAN Facil ity:[facility] Start: 03-14-2022 End: 03-14-2022 Patient encounter procedure JEFF CARLOS [facility] Start: 03-14-2022 End: 03-16-2022 Evaluation and management of inpatient MD Ayden Freeman Work Phone: [facility] Start: 02-15-[address] AYDEN FREEMAN Facil ity:[facility] Start: 02-01-2022 End: 02-01-2022 ambulatory HINA Walker Facility:[facility] Start: 01-24-2022 End: 01-24-[address] CAROL YIP Facility:[facility] Start: 01-18-2022 End: 01-19-[address] MASON CASTRO Facility:[facility] Procedures Date Procedure Procedure Detail Performing Clinician Start: 12-19-[address] AYDEN FRIEND Comment on above: Performed By: #### [facility] #### [facility] [address] [place] [address] Dr. Ladan Diehl Start: 04-12-2022 Plain chest X-ray MD Mari Freeman Work Phone: Start: 04-02-2022 CT angiography of thorax MD Ayden Freeman Work Phone: Start: 04-02-2022 End: 04-02-2022 Plain chest X-ray MD Ayden Freeman Work Phone: Start: 04-02-2022 Plain X-ray of left hip MD Ayden Freeman Work Phone: Start: 04-02-2022 Plain X-ray of left elbow MD Ayden Freeman Work Phone: Start: 03-14-2022 Plain chest X-ray MD Mari Freeman Work Phone: Blood culture for bacteria, including anaerobic screen MD Ayden Freeman Work Phone: Refusal of treatment by patient Refusal of treatment [facility] SARS Antigen (LFIA) MD Ayden Freeman Work Phone: Plan of Treatment Date Care Activity Detail Author Start: 05-11-2022 Influenza vaccination Influenza Vaccine (#1) [facility] Start: 04-12-2022 Plain chest X-ray XR chest 2V* [facility] Start: 04-12-2022 End: 04-12-2022 Emergency department patient visit Departed Emergency [facility] Start: 04-09-2022 [facility] Work Phone: Start: 04-09-2022 [facility] Work Phone: Start: 04-02-2022 End: 04-09-2022 Evaluation and management of inpatient Abrasion of elbow [facility] Start: 04-02-2022 CT angiography of thorax CT angio chest PE protocol [facility] Start: 04-02-2022 Hospital admission [facility] Work Phone: Start: 04-02-2022 X-ray of left knee XR knee LT 2V [facility] Start: 04-02-2022 Plain chest X-ray XR chest 1V portable [facility] Start: 04-02-2022 Plain X-ray of left hip XR hip LT min 2V(w/wo pelvis)* [facility] Start: 04-02-2022 Plain X-ray of left elbow XR elbow LT min 3V* [facility] Start: 03-16-2022 [facility] Work Phone: Start: 03-14-2022 Referral to actuary manager [facility] Work Phone: Start: 03-14-2022 Hospital admission [facility] Work Phone: Start: 12-09-2021 Welcome to Medicare Visit (G0402) Welcome to Medicare Visit (G0402) [facility] Start: 11-28-2007 Measurement of occult blood in single stool specimen FIT [facility] Start: 11-28-2007 Screening for malignant neoplasm of colon CRC Screening [facility] Start: 11-28-2007 Shingles (RZV) Vaccine (1 of 2) Shingles (RZV) Vaccine (1 of 2) [facility] Start: 1992 Lipid panel Cholesterol [facility] Start: 11-28-1975 Hepatitis C screening Hepatitis C Antibody [facility] Start: 11-28-1975 Tetanus + diphtheria + acellular pertussis vaccine (product) Tdap Booster [facility] Start: 1972 HIV screening HIV Test [facility] Start: 05-29-1958 COVID-19 Vaccine (#1) COVID-19 Vaccine (#1) [facility] Start: 1957 Screening for malignant neoplasm of colon Colonoscopy [facility] Patient Education [facility] Work Phone: Patient referral [facility] Work Phone: Payers Date Payer Category Payer Self-pay [id number] 2021 Medicare [facility] E - MEDICARE UHC HMO SNP [id number] 2021-Present [phone] [address] [address] [place] [address] Medicare [id number] 2021 Private Health Insurance [id number] 2017 Unknown [id number] 1959 Medicaid [id number] 1959 Medicare [id number] 1957 Unknown [id number] 1957 Unknown [id number] 1957 Unknown [id number] 1957 Unknown [id number]. 732 1955 Unknown [id number] [id number]. 593 1955 Unknown [id number] 2.16.840.1.394279.3.579.2. 593 1955 Unknown [id number] 2.16.840.1.293691.3.579.2. 593 1955 Unknown [id number] 2.16.840.1.968930.3.579.2. 593 1955 Unknown [id number] 2.16.840.1.740186.3.579.2. 593 1955 Unknown [id number] 2.16.840.1.772365.3.579.2. 593 1955 Unknown [id number] 2.16.840.1.744931.3.579.2. 593 1955 Unknown [id number] 2.16.840.1.825581.3.579.2. 593 1955 Unknown [id number] 2.16.840.1.169365.3.579.2. 593 Medicare Medicare [id number] Medicare Medicare Psych-IP Part A [id number] Medicare [facility] PFFS [id number] Medicare [employer] [facility] [id number] Unknown [facility] [id number] Unknown [id number]. 531 Social History Date Type Detail Facility Tobacco smoking status No Smoking Status Entered [facility] Sex Assigned At Male [facility] Start: 04-02-2022 End: 04-12-2022 Tobacco smoking status PAIS Never smoked tobacco (finding) [facility] Start: 1955 Sex Assigned At Male [facility] Tobacco smoking status [facility] Tobacco smoking consumption unknown [facility] Start: 1955 Sex Assigned At Not on file [facility] Medical Equipment Procedure Code Equipment Code Equipment Origin al Text Equipment Identifier Dates Lancets-Blood Glucose Strips (Gojji Lancet-Glucose Test Strp) 30 gauge Combo Pack Start: 03-16-2022 End: 04-09-2022 Pen Needle, Diab etic (Pentips) 29 gauge x 1/2 Needle Start: 03-16-2022 End: 04-09-2022 Lancets-Blood Glucose Strips (Gojji Lancet-Glucose Test Strp) 30 gauge Combo Pack Start: 03-16-2022 End: 04-09-2022 Pen Needle, Diab etic (Pentips) 29 gauge x 1/2 Needle Start: 03-16-2022 End: 04-09-2022 Lancets-Blood Glucose Strips (Gojji Lancet-Glucose Test Strp) 30 gauge Combo Pack Start: 03-16-2022 End: 04-09-2022 Pen Needle, Diab etic (Pentips) 29 gauge x 1/2 Needle Start: 03-16-2022 End: 04-09-2022 Lancets-Blood Glucose Strips (Gojji Lancet-Glucose Test Strp) 30 gauge Combo Pack Start: 03-16-2022 End: 04-09-2022 Pen Needle, Diab etic (Pentips) 29 gauge x 1/2 Needle Start: 03-16-2022 End: 04-09-2022 Lancets-Blood Glucose Strips (Gojji Lancet-Glucose Test Strp) 30 gauge Combo Pack Start: 03-16-2022 End: 04-09-2022 Pen Needle, Diab etic (Pentips) 29 gauge x 1/2 Needle Start: 03-16-2022 End: 04-09-2022 Goals Date Patient Goal Desired Activity /State Functional Status Date Assessment Result Facility 04-09-2022 Functional status 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 Baseline [facility] Work Phone: 03-16-2022 Functional status Patient at Baseline [facility] Work Phone: Mental Status Date Assessment Result Facility 04-09-2022 Cognitive function Cognitive Sta tus Patient at Baseline [facility] Work Phone: 03-16-2022 Cognitive function Cognitive Sta tus Patient at Baseline [facility] Work Phone: Clinical Notes 2021 to 05-03-2022 Peter Molina DO - 05/03/2022 9:41 AM EDT Note Date & Type Note Facility 05-03-2022 History of Presen t illness Narrative Images from the original note were not included. EMERGENCY TRIAGE, TREAT AND TRANSPORT (ET3) DOCUMENTATION OF TELEHEALTH VISIT Date / Time: 05/01/2022599 Name: Stephane Patterson : 1955 SSN: [id number] EMS Agency: [facility] [x] Verbal consent obtained [] Implied consent - patient with potential emergency medical condition requiring assessment of capacity to refuse treatment and/or transport VITAL SIGNS: see flowsheet documentation Reason for Telehealth Visit: Chief Complaint Patient presents with Fall History of Present Ilness: 66 yo male with PMH DM, HTN, CAD, COPD on 2 L NC at baseline was at home alone when fell getting out of bed to get to toilet. No LOC. No head injury. Has right elbow skin tear. Onset just prior to EMS call Course improved after EMS lift assist Blood glucose 145 Declining EMS transport despite abnormal VS Additional pertinent PMHx, SocHx, FamHx: PMH as above Meds ASA, albuterol, statin, benadryl, esomprazole, gabapentin, isosorbide, Levothyroxine, metformin, ropinrole, sertarline Review of Systems: Denies the following: GASTELUM, neck pain, back pain, CP, ext pain, cough, fever, chills, SOB Exam: General: Awake, no distress\ Elevated BMI On nasal cannula oxygen ENT: normocephalic, atraumatic Pulmonary: No respiratory distress Cardiovascular: Well perfused MSK skin tear left elbow, dressed Neurologic: Oriented to person, place, time and events. Moving all extremities equally. Psychiatric: Appropriate. Good insight and judgement. Medical Decision Makin yo male with fall when getting out of bed. Tripped. No LOC, CP, or palpitations. Denies injury or pain but does have a skin tear to elbow. Awake alert normal mental status despite hypotension and low normal pulse ox on his baseline oxygen He has complex PMH and frequent hospital evaluations and admissions per pts report. He has medical decision making capacity. We had a jamal discussion about the unclear etiology of his abnormal vital signs as well as my serious concern for possible life threatening etiology. He expressed understanding of these concerns and was agreeable to call EMS back if he feel bad in anyway. Refused EMS transport. Disposition Supported by Telehealth Assessment: ET3 transport decisions: Refused transport EMS Disposition Reported: Same ET3 Encounter Completed by: Peter Molina DO documented in this encounter [facility] 04-08-2022 Progress note Note Date/Time April 08, 2022 1:38pm [facility] [address] [place] [address] Hospitalist Progress Note Signed Patient: Stephane Patterson MR#: [id number] : 1955 Acct:[id number] Age/Sex: 66 / M Adm Date: 2 Loc: Room: [address] [place] [address] Type: ADM INOo Attending Dr: Lupe Hernandez MD Copies to: ~ Date of Service: 04/08/2022 Subjective Subjective Narrative: Patient examined at bedside and mentioned not sleeping well last night and complaining of nausea. He took his oxygen off as it was bothering him with pulse ox of 89%. He was placed back on 2 and half liter oxygen. He is not using CPAP at night. Currently in normal sinus rhythm with no arrhythmia noted. Exam Physical Exam Vital Signs: Temp Pulse Resp BP Pulse Ox O2 Del Method O2 Flow Rate 98.0 F 93 H 20 132/80 95 Nasal Cannula 2 04/08/22 08:11 04/08/22 08:11 04/08/22 08:11 04/08/22 08:11 04/08/22 08:11 04/08/22 08:11 04/08/22 08:11 FiO2 30 04/06/22 16:00 Const Nutritional Appearance: obese Orientation: alert, awake and oriented x3 Resp Effort & Inspection: normal respiratory effort and able to speak in complete sentences Auscultation: diminished lung sounds, no rales, no rhonchi and no wheezes Cardio Rate: regular rate Rhythm: regular rhythm Heart Sounds: S1 normal and S2 normal GI Palpation: soft, not firm, no guarding and nontender Auscultation: normal bowel sounds Neuro General: patient alert, patient awake, patient oriented x3, moves all extremities and no focal motor deficits Objective Lab Results CBC & Chem 7: 04/02/22 17:51 04/02/22 17:51 Microbiology Results Microbiology 04/02/22 21:31 Blood - Left Arm Blood Culture - Final NO GROWTH 5 DAYS 04/02/22 19:32 Blood - Left Hand Blood Culture - Final NO GROWTH 5 DAYS Meds Allergies and Active Meds Allergies metformin Adverse Reaction (Verified 04/02/22 16:29) Flatulence prochlorperazine [From Compazine] Adverse Reaction (Verified 04/02/22 16:29) Flatulence Active Meds: Active Medications Generic Name Dose Route Start Last Admin Trade Name Freq PRN Reason Stop Dose Admin Acetaminophen 1,000 mg 04/04/22 13:09 04/07/22 17:00 Acetaminophen 500 Mg Tablet PO 04/04/23 13:08 1,000 mg Q6H PRN Administration Fever or Pain Albuterol 2 puff 04/02/22 19:34 Albuterol Hfa 60 Puff/8 Gram Inhaler INHALATION 04/02/23 19:33 Q4HR PRN Shortness Of Breath Atorvastatin Calcium 40 mg 04/02/22 22:00 04/07/22 21:54 Atorvastatin 40 Mg Tablet PO 04/02/23 21:59 40 mg HS JOSIANE Administration Guaifenesin/Dextromethorphan 10 ml 04/06/22 12:25 04/07/22 05:38 Guaif/Dextromethorphan Syrup 10 Ml Udc PO 04/06/23 12:24 10 ml Q8H PRN Administration cough Insulin Aspart 0 units 04/02/22 23:15 04/08/22 11:31 Insulin Aspart 300 Units/3 Ml Insuln.Pen SUBCUT 04/02/23 23:14 2 units ACHS JOSIANE Administration Protocol Insulin Detemir 40 units 04/03/22 08:00 04/08/22 08:26 Insulin Detemir 300 Units/3 Ml Insuln.Pen SUBCUT 04/03/23 07:59 40 units DAILY.WITH.BKFAST JOSIANE Administration Isosorbide Mononitrate 30 mg 04/03/22 09:00 04/08/22 08:20 Isosorbide Mononitrate 24hr Er 30 Mg Tab.Er.24h PO 04/03/23 08:59 30 mg DAILY JOSIANE Administration Levothyroxine Sodium 250 mcg 04/04/22 06:30 04/08/22 06:19 Levothyroxine 125 Mcg Tablet PO 04/04/23 06:29 250 mcg DAILY.0630 JOSIANE Administration Liraglutide 0.6 mg 04/04/22 17:00 04/08/22 08:25 Liraglutide 18 Mg/3 Ml Pen.Injctr SUBCUT 04/04/23 16:59 0.6 mg DAILY JOSIANE Administration Lisinopril 40 mg 04/03/22 09:00 04/08/22 08:25 Lisinopril 40 Mg Tablet PO 04/03/23 08:59 40 mg DAILY JOSIANE Administration Multi-Ingredient Mouthwash/Gargle 5 ml 04/07/22 11:19 04/08/22 11:30 Magic Mouthwash With Lidocaine PO 04/07/23 11:18 5 ml Q6H PRN Administration Mouth Sore Pain Ondansetron HCl 4 mg 04/06/22 12:25 04/08/22 11:30 Ondansetron Odt 4 Mg Tab.Rapdis PO 04/06/23 12:24 4 mg Q4HR PRN Administration Nausea And Vomiting Rivaroxaban 10 mg 04/03/22 09:00 04/08/22 08:20 Rivaroxaban 10 Mg Tablet PO 04/03/23 08:59 10 mg DAILY JOSIANE Administration Ropinirole HCl 0.5 mg 04/02/22 23:15 04/07/22 21:54 Ropinirole 0.5 Mg Tablet PO 04/02/23 23:14 0.5 mg DAILY@2000 JOSIANE Administration Sertraline HCl 100 mg 04/02/22 22:00 04/07/22 21:54 Sertraline 100 Mg Tablet PO 04/02/23 21:59 100 mg HS JOSIANE Administration Sodium Chloride 0 ml 04/02/22 16:27 04/07/22 21:57 Sodium Chloride 0.9 % 10 Ml Syringe IV-PUSH 04/02/23 16:26 10 ml PRN PRN Administration Flush A&P - Hospitalist Assessment/Plan (1) Failure to thrive: (2) Morbid obesity due to excess calories: (3) Hypoxemia: (4) Hypergammaglobulinemia: (5) Diabetes mellitus, type 2: (6) Obstructive sleep apnea: (7) Hypothyroidism: Plan Patient currently awaiting placement to [facility] facility. Remains in normal sinus rhythm. He has not been able to tolerate CPAP. He will benefit from sleep study as an outpatient. Dose of levothyroxine has been increased dueto elevated TSH. Patient will require outpatient hematology/oncology consultation regarding gammopathy. Continue basal insulin sliding scale coverage. Continue lisinopril, sertraline, ropinirole Xarelto for DVT prophylaxis Documented By: Lupe Hernandez MD 04/08/221331 Signed By: <Electronically signed by Lupe Hernandez MD> 04/08/22 [address] [facility] Work Phone: 1(481) 219-216408-28-2022 Discharge summary Author Luke Moran 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 Patient has been seen in the past by Dr. Clemente Olivarez. Outpatient f/u by hematology service was recommended. 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 He presented to the emergency department with decreased appetite, low energy level, inability to function properly at home. He had been recently hospitalized in our facility for COVID-19 infection and FRANC. Initial evaluation did not clearly show any acute medical illness. Patient was admitted to the hospital for further evaluation. Blood cultures were obtained given history of MSSA endocarditis in 2019. They did not demonstrate any bacterial growth. On account of an abnormal D-dimer, a CTA chest was performed, which did not show any pulmonary emboli. An echocardiogram was unremarkable. LFTs and prior studies had been indicative of cirrhosis, likely secondary to [place]. Studies for hepatitis B and C were obtained and were negative. HBs antibodies are positive consistent with immunity from either infection or immunization. Patient does have a degree of paraproteinemia, which had been evaluated in the past. Studies were repeated, immunofixation pending as of the time of discharge, will be followed as outpatient by his PCP. Patient remained unable to tolerate positive pressure ventilation during sleep. Efforts will be made as outpatient to refit him with another type of mask. A sleep study was ordered. It is of the utmost importance to treat his sleep apnea appropriately in order to prevent development of pulmonary hypertension and other associated complications. He was discharged home in stable condition to a usp facility. Medical therapy was adjusted as noted below. Time Spent with Patient Time spent providing/coordinating discharge services (# min): 35 Diagnostic Studies Completed and Pending Studies Pending studies at discharge: 04/02/22 21:31 Blood Culture Stat 04/03/22 00:50 Immunofixation, (CALLI), Urine Routine 04/03/22 07:34 Free K+L LT Chains, Qn, S IN AM Immunofixation,Serum IN AM Preliminary micro results at discharge 04/02/22 21:31 Blood Culture - Preliminary Blood - Left Arm No Growth 2 Days 04/02/22 19:32 Blood Culture - Preliminary Blood - Left Hand No Growth 2 Days Labs on day of discharge: 04/05/22 06:42: POC Glucose 204 04/04/22 20:33: POC Glucose 277 04/04/22 16:23: POC Glucose 298, POC Glucose Comment Glu2: cleaned meter 04/04/22 10:24: POC Glucose 271 04/03/22 07:34: Free [place] LC, Quant 93.9 H, Free [place] LC, Quant 61.6 H, Free [place]/Lambda Ratio 1.52 Exam Physical Exam Vital Signs: Temp Pulse Resp BP Pulse Ox O2 Del Method O2 Flow Rate 97.9 F 85 20 134/76 90 L Room Air 2 04/05/22 08:00 04/05/22 08:00 04/05/22 08:00 04/05/22 08:00 04/05/22 08:00 04/05/22 08:00 04/05/22 08:00 FiO2 30 04/04/22 22:34 Discharge Plan Discharge Plan Patient Disposition: [facility] Facility Activity: Ambulate as Tolerated Diet: Diabetic and Low-Sodium Additional Instructions: Please have company providing CPAP machine fit the patient with a mask that he can tolerate. Use a CPAP of 8 whenever asleep until the sleep study performed. [facility] Facility to manage care: - Full code - PT/OT eval and treat - Routine vital signs - Oxygen at 2L per nasal cannula, titrate as needed to keep pox > 90% - Maintain CPAP at 8 at HS and prn for naps - Fingerstick blood sugar ACHS - Theraworx protect to bilateral groin and abdominal fold redness. TID and prn Stand Alone Forms: Insulin Corrective Scale #2 Prescriptions: New Victoza 3-Bora 0.6 mg/0.1 mL (18 mg/3 mL) pen injector 1.8 mg subcut DAILY Qty: 9 0RF Rx Instructions: start 0.6 mg sq daily x 1 week then 1.2 mg sq daily x 1 week then 1.8 mg sq daily thereafter insulin aspart U-100 [Novolog Flexpen U-100 Insulin] 100 unit/mL (3 mL) Insulin Pen 0 units subcut ACHS Qty: 0 0RF levothyroxine 125 mcg Tablet 250 mcg PO DAILY.0630 Qty: 0 0RF acetaminophen 500 mg Tablet 1,000 mg PO Q6H PRN (Reason: Fever Or Pain) Qty: 0 0RF Continued sertraline [Zoloft] 100 mg tablet 100 mg PO HS atorvastatin 40 mg Tablet 40 mg PO HS lisinopril 40 mg tablet 40 mg PO DAILY ropinirole 5 mg Tablet 0.5 mg PO QHS Rx Instructions: administer 1-3 hours before bedtime albuterol sulfate 90 mcg/actuation HFA aerosol inhaler 2 puff INHALATION Q4HR PRN (Reason: Shortness Of Breath) Label Comments: INHALE 2 PUFFS BY MOUTH EVERY 4 HOURS NEEDED isosorbide mononitrate 30 mg tablet extended release 24 hr 30 mg PO DAILY Levemir FlexTouch U-100 Insuln 100 unit/mL (3 mL) Insulin Pen 40 unit subcut DAILY.WITH.BKFAST 30 Days Qty: 12 0RF Changed gabapentin 100 mg capsule 200 mg PO TID 30 Days Qty: 0 0RF Label Comments: TAKE 1 (ONE) CAPSULE BY MOUTH TWO TIMES DAILY Discontinued acetaminophen-codeine 300-30 mg tablet 1 tab PO Q6H PRN (Reason: Pain) levothyroxine 200 mcg tablet 200 mcg PO DAILY.0630 triamcinolone acetonide 0.1 % Lotion 1 applic topical BID Qty: 0 0RF hydroxyzine HCl 25 mg tablet 25 mg PO QHS PRN (Reason: Anxiety) clotrimazole 1 % cream 1 applic TOPICAL DAILY PRN (Reason: Dry Skin) nystatin 100,000 unit/mL suspension 100,000 unit PO QHS pioglitazone 30 mg tablet 30 mg PO DAILY (DME) pen needle, diabetic [Pentips] 29 gauge x 1/2 Needle Qty: 150 0RF Rx Instructions: As Directed (DME) Za Lancet-Glucose Test Strp 30 gauge Combo Pack Qty: 120 0RF Rx Instructions: As Directed insulin lispro [Humalog KwikPen Insulin] 100 unit/mL Insulin Pen 1 sliding scale dose SUBCUT ACHS Qty: 5 0RF Protocol: Corrective Scale #2 Condition: 150-199 mg/dL Dose/Route: 2 unit Condition: 200-249 mg/dL Dose/Route: 3 unit Condition: 250-299 mg/dL Dose/Route: 5 unit Condition: 300-349 mg/dL Dose/Route: 7 unit Condition: 350-399 mg/dL Dose/Route: 8 unit Condition: greater than or = 400 mg/dL Dose/Route: 9 unit Protocol Text: If the corrective scale dose has been administered within the past 4 hours, do not use corrective scale again unless otherwise directed Rx Instructions: Sliding Scale ACHS Other Ambulatory Orders: [employer] REPRESENTATIVE polysom procedure (Routine) Timeframe: 3 Weeks Location: Determined by Patient Ordered By: Luke Moran Follow Up: [facility] [Outside] ([facility] or Central Scheduling will call you to arrange date/time for sleep study. ) Documented By: Luke Moran MD 04/07/22 0959 Signed By: <Electronically signed by Luke Moran MD> 04/07/22 16[address] [facility] Work Phone: 1(448) 669-985208-27-2022 Progress note Author Luke Moran [facility] April 06, 2022 2:50pm Note Date/Time April 06, 2022 2: 50pm [facility] [address] [place] [address] Hospitalist Progress Note Signed Patient: tSephane Patterson MR#: [id number] : 1955 Acct:[id number] Age/Sex: 66 / M Adm Date: 2 Loc: Room: [address] [place] [address] Type: ADM INOo Attending Dr: Luke Moran MD Copies to: ~ Date of Service: 04/06/2022 Subjective Subjective Narrative: Patient is feeling well. He is having a shower now. No complaints apart from amild nonproductive cough. Awake alert oriented with no focal deficit 1. Failure to thrive, decreased energy, bacteremia was ruled out given his priorhistory of MSSA endocarditis in 2019. #2 hypoxia. Recent COVID-[address] chest negative for PE. LV hyperdynamic, normal ejection fraction. Robitussin DM as needed for cough #3 Abnormal bilirubin, imaging suggestive of cirrhosis in the past. Likely secondary to [place] Viral serological studies negative #4 paraproteinemia. Nonspecific, immunofixation showed no monoclonal gammopathy. 5. Severe sleep apnea. I believe I convinced him to try again CPAP at night and whenever asleep. We will try to fit him with an appropriate mask in the outpatient setting. 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 Cirrhosis likely secondary to [place] Diabetes mellitus type 2 Anxiety disorder Hypertension Atrial fibrillation Exam Physical Exam Vital Signs: Temp Pulse Resp BP Pulse Ox O2 Del Method O2 Flow Rate 98.3 F 98 H 20 132/85 97 Nasal Cannula 2 04/06/22 07:31 04/06/22 10:35 04/06/22 10:35 04/06/22 10:35 04/06/22 10:35 04/06/22 10:35 04/06/22 10:35 FiO2 30 04/04/22 22:34 Objective Lab Results CBC & Chem 7: 04/02/22 17:51 04/02/22 17:51 Microbiology Results Microbiology 04/02/22 21:31 Blood - Left Arm Blood Culture - Preliminary No Growth 3 Days 04/02/22 19:32 Blood - Left Hand Blood Culture - Preliminary No Growth 3 Days Meds Allergies and Active Meds Allergies metformin Adverse Reaction (Verified 04/02/22 16:29) Flatulence prochlorperazine [From Compazine] Adverse Reaction (Verified 04/02/22 16:29) Flatulence Active Meds: Active Medications Generic Name Dose Route Start Last Admin Trade Name Freq PRN Reason Stop Dose Admin Acetaminophen 1,000 mg 04/04/22 13:09 04/06/22 10:34 Acetaminophen 500 Mg Tablet PO 04/04/23 13:08 1,000 mg Q6H PRN Administration Fever or Pain Albuterol 2 puff 04/02/22 19:34 Albuterol Hfa 60 Puff/8 Gram Inhaler INHALATION 04/02/23 19:33 Q4HR PRN Shortness Of Breath Atorvastatin Calcium 40 mg 04/02/22 22:00 04/05/22 21:47 Atorvastatin 40 Mg Tablet PO 04/02/23 21:59 40 mg HS JOSIANE Administration Guaifenesin/Dextromethorphan 10 ml 04/06/22 12:25 04/06/22 13:13 Guaif/Dextromethorphan Syrup 10 Ml Udc PO 04/06/23 12:24 10 ml Q8H PRN Administration cough Insulin Aspart 0 units 04/02/22 23:15 04/06/22 11:39 Insulin Aspart 300 Units/3 Ml Insuln.Pen SUBCUT 04/02/23 23:14 3 units ACHS JOSIANE Administration Protocol Insulin Detemir 40 units 04/03/22 08:00 04/06/22 08:22 Insulin Detemir 300 Units/3 Ml Insuln.Pen SUBCUT 04/03/23 07:59 40 units DAILY.WITH.BKFAST JOSIANE Administration Isosorbide Mononitrate 30 mg 08/24/22 09:00 04/06/22 08:23 Isosorbide Mononitrate 24hr Er 30 Mg Tab.Er.24h PO 04/03/23 08:59 30 mg DAILY JOSIANE Administration Levothyroxine Sodium 250 mcg 04/04/22 06:30 04/06/22 05:40 Levothyroxine 125 Mcg Tablet PO 04/04/23 06:29 250 mcg DAILY.0630 JOSIANE Administration Liraglutide 0.6 mg 04/04/22 17:00 04/06/22 08:23 Liraglutide 18 Mg/3 Ml Pen.Injctr SUBCUT 04/04/23 16:59 0.6 mg DAILY JOSIANE Administration Lisinopril 40 mg 04/03/22 09:00 04/06/22 08:23 Lisinopril 40 Mg Tablet PO 04/03/23 08:59 40 mg DAILY JOSIANE Administration Ondansetron HCl 4 mg 04/06/22 12:25 04/06/22 13:13 Ondansetron Odt 4 Mg Tab.Rapdis PO 04/06/23 12:24 4 mg Q4HR PRN Administration Nausea And Vomiting Rivaroxaban 10 mg 04/03/22 09:00 04/06/22 08:24 Rivaroxaban 10 Mg Tablet PO 04/03/23 08:59 10 mg DAILY JOSIANE Administration Ropinirole HCl 0.5 mg 04/02/22 23:15 04/05/22 20:17 Ropinirole 0.5 Mg Tablet PO 04/02/23 23:14 0.5 mg DAILY@2000 JOSIANE Administration Sertraline HCl 100 mg 04/02/22 22:00 04/05/22 21:47 Sertraline 100 Mg Tablet PO 04/02/23 21:59 100 mg HS JOSIANE Administration Sodium Chloride 0 ml 04/02/22 16:27 04/02/22 18:56 Sodium Chloride 0.9 % 10 Ml Syringe IV-PUSH 04/02/23 16:26 10 ml PRN PRN Administration Flush Documented By: Luke Moran MD 04/06/22 1528 Signed By: <Electronically signed by Luke Moran MD> 04/06/22 8[address] [facility] Work Phone: 1(843) 641-477908-25-2022 Progress note Author Luke Moran [facility] April 04, 2022 4:25pm Note Date/Time April 04, 2022 4: 25pm [facility] [address] [place] [address] Hospitalist Progress Note Signed Patient: Stephane Patterson MR#: [id number] : 1955 Acct:[id number] Age/Sex: 66 / M Adm Date: 2 Loc: 3T Room: [address] [place] [address] Type: ADM INOo Attending Dr: Luke Moran MD Copies to: ~ Date of Service: 04/04/2022 Subjective Subjective Narrative: Patient was somewhat lethargic and less arousable in the morning. At the time of my examination he has no complaints. He is awake alert with normal cognitivefunction. Diminished sounds present bilaterally, no wheezing Heart very diminished, no gallop JVD could be appreciated due to body habitus Abdomen is obese otherwise unremarkable Neurological nonfocal Assessment and plan 1. Failure to thrive, decreased energy, rule out recurrent bacteremia. Patient does have a history ofMSSA endocarditis in 2019. Blood cultures no growth. #2 hypoxia. Recent COVID-[address] chest negative for PE. LV hyperdynamic, normal ejection fraction. DC Lasix therapy. #3 Abnormal bilirubin, imaging suggestive of cirrhosis in the past. Likely secondary to [place] Viral serological studies negative #4 paraproteinemia. Patient has an elevation in free light chains of unclear significance, immunofixation was not certain, repeated and currently pending. 5. Severe sleep apnea. I believe I convinced him to try again CPAP at night and whenever asleep. 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 Cirrhosis likely secondary to [place] Diabetes mellitus type 2 Anxiety disorder Hypertension Atrial fibrillation Exam Physical Exam Vital Signs: Temp Pulse Resp BP Pulse Ox O2 Del Method O2 Flow Rate 98.1 F 68 20 101/63 92 L Nasal Cannula 2 04/04/22 11:05 04/04/22 11:05 04/04/22 11:05 04/04/22 11:05 04/04/22 11:05 04/04/22 11:05 04/04/22 11:05 Objective Lab Results CBC & Chem 7: 04/02/22 17:51 04/02/22 17:51 Microbiology Results Microbiology 04/02/22 21:31 Blood - Left Arm Blood Culture - Preliminary No Growth 1 Day 04/02/22 19:32 Blood - Left Hand Blood Culture - Preliminary No Growth 1 Day ABG Interpretation ABG results: 04/04/22 09:31 ABG pH 7.43 ABG pCO2 43.2 ABG pO2 61.4 L ABG HCO3 28.1 ABG Total CO2 29.4 H ABG O2 Saturation 92.1 L ABG O2 Content 6.4 L ABG Base Excess 3.4 H Meds Allergies and Active Meds Allergies metformin Adverse Reaction (Verified 04/02/22 16:29) Flatulence prochlorperazine [From Compazine] Adverse Reaction (Verified 04/02/22 16:29) Flatulence Active Meds: Active Medications Generic Name Dose Route Start Last Admin Trade Name Freq PRN Reason Stop Dose Admin Acetaminophen 1,000 mg 04/04/22 13:09 Acetaminophen 500 Mg Tablet PO 04/04/23 13:08 Q6H PRN Fever or Pain Albuterol 2 puff 04/02/22 19:34 Albuterol Hfa 60 Puff/8 Gram Inhaler INHALATION 04/02/23 19:33 Q4HR PRN Shortness Of Breath Atorvastatin Calcium 40 mg 04/02/22 22:00 04/03/22 21:17 Atorvastatin 40 Mg Tablet PO 04/02/23 21:59 40 mg HS JOSIANE Administration Insulin Aspart 0 units 04/02/22 23:15 04/04/22 12:00 Insulin Aspart 300 Units/3 Ml Insuln.Pen SUBCUT 04/02/23 23:14 5 units ACHS JOSIANE Administration Protocol Insulin Detemir 40 units 04/03/22 08:00 04/04/22 09:12 Insulin Detemir 300 Units/3 Ml Insuln.Pen SUBCUT 04/03/23 07:59 40 units DAILY.WITH.BKFAST JOSIANE Administration Isosorbide Mononitrate 30 mg 04/03/22 09:00 04/04/22 09:11 Isosorbide Mononitrate 24hr Er 30 Mg Tab.Er.24h PO 04/03/23 08:59 30 mg DAILY JOSIANE Administration Levothyroxine Sodium 250 mcg 04/04/22 06:30 04/04/22 05:32 Levothyroxine 125 Mcg Tablet PO 04/04/23 06:29 250 mcg DAILY.0630 JOSIANE Administration Lisinopril 40 mg 04/03/22 09:00 04/04/22 09:11 Lisinopril 40 Mg Tablet PO 04/03/23 08:59 40 mg DAILY JOSIANE Administration Rivaroxaban 10 mg 04/03/22 09:00 04/04/22 09:11 Rivaroxaban 10 Mg Tablet PO 04/03/23 08:59 10 mg DAILY JOSIANE Administration Ropinirole HCl 0.5 mg 04/02/22 23:15 04/03/22 21:17 Ropinirole 0.5 Mg Tablet PO 04/02/23 23:14 0.5 mg DAILY@2000 JOSIANE Administration Sertraline HCl 100 mg 04/02/22 22:00 04/03/22 21:17 Sertraline 100 Mg Tablet PO 04/02/23 21:59 100 mg HS JOSIANE Administration Sodium Chloride 0 ml 04/02/22 16:27 04/02/22 18:56 Sodium Chloride 0.9 % 10 Ml Syringe IV-PUSH 04/02/23 16:26 10 ml PRN PRN Administration Flush Documented By: Luke Moran MD 04/04/221621 Signed By: <Electronically signed by Luke Moran MD> 04/04/221624 [facility] Work Phone: 1([phone] 477-696108-24-2022 Progress note Author Luke Moran [facility] April 03, 2022 2:05pm Note Date/Time April 03, 2022 2: 05pm [facility] [address] [place] [address] Hospitalist Progress Note Signed Patient: Stephane Patterson MR#: [id number] : 1955 Acct:[id number] Age/Sex: 66 / M Adm Date: 2 Loc: Room: [address] [place] [address] Type: ADM INOo Attending Dr: Luke Moran MD Copies to: ~ Date of Service: 04/03/2022 Subjective Subjective Narrative: Patient is feeling better today. His oxygen requirements have decreased to 2 L/min. On examination he is resting comfortably in bed. He is in no distress. Diminished breath sounds bilaterally, no audible wheezes or crackles Heart very diminished, no gallop JVD could be appreciated due to body habitus Abdomen is obese otherwise unremarkable Neurological nonfocal Assessment and plan 1.Failure to thrive, decreased energy, rule out recurrent bacteremia. Patient does have a history ofMSSA endocarditis in 2019. Blood cultures repeated, still no growth. #2 hypoxia. Recent COVID-[address] chest negative for PE. Echo pending Continue diuretic therapy IV Lasix. #3 Abnormal bilirubin, imaging suggestive of cirrhosis in the past. Likely secondary to [place], but I see no serological studies for hepatitis B and C, will obtain. #4 paraproteinemia. Patient has an elevation in free light chains of unclear significance, immunofixation was not certain, will repeat. 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 Cirrhosis likely secondary to [place] Diabetes mellitus type 2 Anxiety disorder Hypertension Atrial fibrillation Exam Physical Exam Vital Signs: Temp Pulse Resp BP Pulse Ox O2 Del Method O2 Flow Rate 98.2 F 84 24 99/58 L 93 L Nasal Cannula 2 04/03/22 08:00 04/03/22 12:00 04/03/22 12:00 04/03/22 12:00 04/03/22 12:00 04/03/22 12:00 04/03/22 12:00 Objective Lab Results CBC & Chem 7: 04/02/22 17:51 04/02/22 17:51 Microbiology Results Microbiology 04/02/22 17:28 Nasal SARS Antigen (LFIA) - Final Meds Allergies and Active Meds Allergies metformin Adverse Reaction (Verified 04/02/22 16:29) Flatulence prochlorperazine [From Compazine] Adverse Reaction (Verified 04/02/22 16:29) Flatulence Active Meds: Active Medications Generic Name Dose Route Start Last Admin Trade Name Freq PRN Reason Stop Dose Admin Hydrocodone Bitart/Acetaminophen 1 tab 04/02/22 22:56 04/02/22 23:25 Hydrocodone/Acetaminophen 5-325 Mg Tablet PO 1 tab Q12HR PRN Administration Pain Hydrocodone Bitart/Acetaminophen 2 tab 04/03/22 13:02 Hydrocodone/Acetaminophen 5-325 Mg Tablet PO BID PRN Severe Pain Albuterol 2 puff 04/02/22 19:34 Albuterol Hfa 60 Puff/8 Gram Inhaler INHALATION 04/02/23 19:33 Q4HR PRN Shortness Of Breath Atorvastatin Calcium 40 mg 04/02/22 22:00 04/02/22 23:25 Atorvastatin 40 Mg Tablet PO 04/02/23 21:59 40 mg HS JOSIANE Administration Furosemide 40 mg 04/03/22 12:20 04/03/22 13:29 Furosemide 40 Mg/4 Ml Vial IV-PUSH 04/03/23 12:19 40 mg BID@0800,1600 JOSIANE Administration Gabapentin 100 mg 04/02/22 21:00 04/03/22 08:32 Gabapentin 100 Mg Capsule PO 04/02/23 20:59 100 mg BID JOSIANE Administration Hydroxyzine Pamoate 25 mg 04/02/22 23:00 04/02/22 23:25 Hydroxyzine Pamoate 25 Mg Capsule PO 04/02/23 22:59 25 mg HS JOSIANE Administration Insulin Aspart 0 units 04/02/22 23:15 04/03/22 12:16 Insulin Aspart 300 Units/3 Ml Insuln.Pen SUBCUT 04/02/23 23:14 3 units ACHS JOSIANE Administration Protocol Insulin Detemir 40 units 04/03/22 08:00 04/03/22 08:34 Insulin Detemir 300 Units/3 Ml Insuln.Pen SUBCUT 04/03/23 07:59 40 units DAILY.WITH.BKFAST JOSIANE Administration Isosorbide Mononitrate 30 mg 04/03/22 09:00 04/03/22 08:32 Isosorbide Mononitrate 24hr Er 30 Mg Tab.Er.24h PO 04/03/23 08:59 30 mg DAILY JOSIANE Administration Lisinopril 40 mg 04/03/22 09:00 04/03/22 08:32 Lisinopril 40 Mg Tablet PO 04/03/23 08:59 40 mg DAILY JOSIANE Administration Rivaroxaban 10 mg 04/03/22 09:00 04/03/22 08:32 Rivaroxaban 10 Mg Tablet PO 04/03/23 08:59 10 mg DAILY JOSIANE Administration Ropinirole HCl 0.5 mg 04/02/22 23:15 04/02/22 23:25 Ropinirole 0.5 Mg Tablet PO 04/02/23 23:14 0.5 mg DAILY@2000 JOSIANE Administration Sertraline HCl 100 mg 04/02/22 22:00 04/02/22 23:25 Sertraline 100 Mg Tablet PO 04/02/23 21:59 100 mg HS JOSIANE Administration Sodium Chloride 0 ml 04/02/22 16:27 04/02/22 18:56 Sodium Chloride 0.9 % 10 Ml Syringe IV-PUSH 04/02/23 16:26 10 ml PRN PRN Administration Flush Documented By: Luke Moran MD 04/03/22 1404 Signed By: <Electronically signed by Luke Moran MD> 04/03/22 1405 [facility] Work Phone: [phone]) 753-331508-23-2022 History and physical note Author Luke Moran [facility] April 02, 2022 7:48pm Note Date/Time April 02, 2022 7: 45pm [facility] [address] [place] [address] Hospitalist H&P Signed Patient: Stephane Patterson MR#: [id number] : 1955 Acct:[id number] Age/Sex: 66 / M Adm Date: 2 Loc: ER Room: Type: [facility] ER Attending Dr: Copies to: MD Jair Connolly DO Marc Naderer, MD~ HPI DATE OF EXAMINATION: 04/02/22 HISTORY OF PRESENT ILLNESS: Patient is a 66-year-old male, with a number chronic medical comorbidities notedbelow, recently hospitalized in our facility for COVID-19 infection and FRANC presents to the hospital with few day history of failure to thrive at home. Hisappetite has been decreased, he felt mildly nauseated. His energy level was low. Today, upon trying to get out of the car, his knees buckled and he sustained a fall with no significant injury. He denies having any fevers or chills. Denies having any chest pain or shortness of breath. He has been taking his medications. He thinks that he retained some water, but is unsure how much. 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 Skin is normally colored, no icterus, cyanosis or edema noted. Joints are without any effusion. Abdomen is soft, benign, no rebound or rigidity. No organomegaly. Bowel sounds present. Heart regular, no gallop, rub or JVD. POCUS was impossible due to body weight. Lungs are very diminished to auscultation, but clear, with no rales, ronchi or wheezes. HENT normal Neurological: Patient is awake. Cognition is normal. Cranial nerves are intact. Power is symmetric all extremities, with no focal motor deficit identified on a cursory exam. Psych: affect is normal. Labs EKG imaging reviewed Assessment and plan 1.Failure to thrive, decreased energy, rule out recurrent bacteremia. Patient does have a history ofMSSA endocarditis in 2019. We will repeat blood cultures to assess for recurrence. #2 hypoxia. Recent COVID-19 infection. Patient with multiple risk factors for DVT/PE. Will obtain a D-dimer, and if abnormal will obtain CT scan chest. Meanwhile continue oxygen by nasal cannula at 4 L/min. He has also multiple reasons to be hypoxic, including super morbid obesity with a BMI of 51, noncompliance with CPAP therapy for sleep apnea due toclaustrophobia, possible COPD. Repeat echocardiogram. Prior study is from July 2020. #3 Abnormal bilirubin, imaging suggestive of cirrhosis in the past. Likely secondary to [place], but I see no serological studies for hepatitis B and C, will obtain. #4 paraproteinemia. Patient has an elevation in free light chains of unclear significance, immunofixation was not certain, will repeat. 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 Cirrhosis likely secondary to [place] Diabetes mellitus type 2 Anxiety disorder Hypertension Atrial fibrillation [facility] Vaccinated for COVID-19?: No Medical History Abdominal mass Anxiety Arthritis Back pain Cirrhosis Colonoscopy planned Deviated nasal septum Diabetes mellitus, type 2 Eczema History of left heart catheterization Pneumonia Surgical History History of cholecystectomy History of hydrocelectomy History of lithotripsy History of nasal surgery Family History Mother Cancer Social History Smoking Status: Never smoker Substance Use Type: None Social History Comments: [facility] Medications and Allergies Allergies metformin Adverse Reaction (Verified 04/02/22 16:29) Flatulence prochlorperazine [From Compazine] Adverse Reaction (Verified 04/02/22 16:29) Flatulence Home Medications levothyroxine 200 mcg tablet 200 mcg PO DAILY.0630 07/20/20 [History Confirmed 04/02/22] sertraline 100 mg tablet (Zoloft) 100 mg PO HS 07/26/20 [History Confirmed 04/02/22] atorvastatin 40 mg tablet 40 mg PO HS 07/27/20 [History Confirmed 04/02/22] triamcinolone acetonide 0.1 % lotion 1 applic topical BID #0 mL 08/02/20 [Rx Confirmed 04/02/22] albuterol sulfate 90 mcg/actuation aerosol inhaler 2 puff inhalation Q4HR PRN Shortness Of Breath 03/14/22 [History Confirmed 04/02/22] clotrimazole 1 % topical cream 1 applic topical DAILY PRN Dry Skin 03/14/22 [History Confirmed 04/02/22] gabapentin 100 mg capsule 100 mg PO BID 03/14/22 [History Confirmed 04/02/22] hydroxyzine HCl 25 mg tablet 25 mg PO HS 03/14/22 [History Confirmed 04/02/22] isosorbide mononitrate 30 mg tablet,extended release 24 hr 30 mg PO DAILY 03/14/22 [History Confirmed 04/02/22] lisinopril 40 mg tablet 40 mg PO DAILY 03/14/22 [History Confirmed 04/02/22] nystatin 100,000 unit/mL oral suspension 100,000 unit PO QHS 03/14/22 [History Confirmed 04/02/22] pioglitazone 30 mg tablet 30 mg PO DAILY 03/14/22 [History Confirmed 04/02/22] ropinirole 5 mg tablet 5 mg PO QHS 03/14/22 [History Confirmed 04/02/22] insulin detemir U-100 100 unit/mL (3 mL) subcutaneous pen (Levemir FlexTouch U- 100 Insulin) 40 unit (0.4 mL) subcut DAILY.WITH.BKFAST 30 days #12 mL 03/16/22 [Rx Confirmed 04/02/22] insulin lispro 100 unit/mL subcutaneous pen (Humalog KwikPen (U-100) Insulin) 1 sliding scale dose subcut ACHS #5 mL 03/16/22 [Rx Confirmed 04/02/22] lancets 30 gauge and blood glucose strips combo pack (Gojji Lancets) #120 ea 03/16/22 [Rx] pen needle, diabetic 29 gauge x 1/2 (Pentips) #150 ea 03/16/22 [Rx] Exam Physical Exam Vital Signs: Temp Pulse Resp BP Pulse Ox O2 Del Method O2 Flow Rate 97.6 F 88 22 125/58 L 96 Nasal Cannula 4 04/02/22 16:28 04/02/22 18:56 04/02/22 18:34 04/02/22 18:56 04/02/22 18:34 04/02/22 18:34 04/02/22 18:34 Results Lab Results Labs: Laboratory Last Values Corrected WBC 8.5 X10E3/uL (4.1-10.5) 04/02/22 17:51 Uncorrected WBC Count 8.5 x10E3/uL (4.5-11.0) 04/02/22 17:51 RBC 3.97 x10E6/uL (3.90-5.60) 04/02/22 17:51 Hgb 12.2 g/dL (13.0-17.0) L 04/02/22 17:51 Hct 36.7 % (38.8-50.0) L 04/02/22 17:51 MCV 92.5 fl (83.5-101) 04/02/22 17:51 MCH 30.6 pg (27.5-35.2) 04/02/22 17:51 MCHC 33.1 g/dL (32.5-35.6) 04/02/22 17:51 RDW 16.4 % (12.0-14.8) H 04/02/22 17:51 Plt Count 147 x10E3/uL (150-450) L 04/02/22 17:51 MPV 8.4 fl (6.6-10.1) 04/02/22 17:51 Neut % (Auto) 76.1 % (.) 04/02/22 17:51 Lymph % (Auto) 8.7 % (.) 04/02/22 17:51 [place] % (Auto) 12.2 % (.) 04/02/22 17:51 Eos % (Auto) 2.4 % (.) 04/02/22 17:51 Baso % (Auto) 0.6 % (.) 04/02/22 17:51 Neut # (Auto) 6.4 x10E3/uL (1.8-7.7) 04/02/22 17:51 Lymph # (Auto) 0.7 x10E3/uL (1.00-4.8) L 04/02/22 17:51 [place] # (Auto) 1.0 x10E3/uL (0.0-0.8) H 04/02/22 17:51 Eos # (Auto) 0.2 x10E3/uL (0.0-0.45) 04/02/22 17:51 Baso # (Auto) 0.1 x10E3/uL (0.0-0.2) 04/02/22 17:51 Nucleated RBC % (auto) 0.1 % (0-0.5) 04/02/22 17:51 PT 11.9 Seconds (9.0-12.9) 04/02/22 17:51 INR 1.1 04/02/22 17:51 APTT 24.8 Seconds (25.1-36.5) L 04/02/22 17:51 PHA Creatinine Clear 81.00 04/02/22 17:51 Sodium 132 mmol/L (136-146) L 04/02/22 17:51 Potassium 3.3 mmol/L (3.5-5.1) L 04/02/22 17:51 Chloride 95 mmol/L (95-114) 04/02/22 17:51 Carbon Dioxide 26.0 mmol/L (22.0-30.0) 04/02/22 17:51 BUN 10 mg/dL (9-23) 04/02/22 17:51 Creatinine 1.41 mg/dL (0.64-1.27) H 04/02/22 17:51 Est GFR ( Amer) > 60 mL/Min 04/02/22 17:51 Est GFR (Non-Af Amer) 51 mL/Min 04/02/22 17:51 Glucose 236 mg/dL (70-100) H 04/02/22 17:51 Calcium 8.1 mg/dL (8.2-10.2) L 04/02/22 17:51 Total Bilirubin 1.8 mg/dL (0.3-1.2) H 04/02/22 17:51 AST 34 U/L (10-42) 04/02/22 17:51 ALT 24 U/L (10-60) 04/02/22 17:51 Alkaline Phosphatase 89 U/L (32-92) 04/02/22 17:51 Troponin I High Sens 26 pg/mL (0-20) H 04/02/22 17:51 B-Natriuretic Peptide 55.0 pg/mL (5-100) 04/02/22 17:51 Total Protein 6.0 gm/dL (6.1-7.9) L 04/02/22 17:51 Albumin 2.4 gm/dL (3.2-5.5) L 04/02/22 17:51 Globulin 3.6 gm/dL 04/02/22 17:51 Albumin/Globulin Ratio 0.7 04/02/22 17:51 COVID-19 PCR Interp N/A 04/02/22 17:28 SARS Antigen (LFIA) Negative (Negative) 04/02/22 17:28 Microbiology Results Micro: Microbiology - Results from entire visit 04/02/22 17:28 Nasal SARS Antigen (LFIA) - Final Documented By: Luke Moran MD 04/02/221936 Signed By: <Electronically signed by Luke Moran MD> 04/02/221947 [facility] Work Phone: 1(317) 991-764508-06-2022 Discharge summary Author Xin Phan [facility] March 16, 2022 9:37am Note Date/Time March 16, 2022 9:3 7am [facility] [address] [place] [address] Discharge Summary Signed Patient: Stephane Patterson MR#: [id number] : 1955 Acct:[id number] Age/Sex: 66 / M Adm Date: 2 Loc: 3T Room: [address] [place] [address]: Xin Phan MD Copies to: MD Ayden Wilson MD~ Providers Date of Discharge: 03/16/22 Discharging Provider: Xin Phan Primary Care Provider: Ayden Freeman Consults: 03/14/22 01:52 Consult to Nephrology Routine 03/14/22 14:35 Consult to Physical Therapy Routine OT [Consult to Occupational Therapy] Routine Discharge Diagnosis (1) FRANC (acute kidney injury): (2) Chronic kidney disease, stage III (moderate): (3) Hypertension: (4) Diabetes: (5) COVID: (6) Hyponatremia: Final Diagnosis Final Discharge Diagnosis: As above Summary Hospital Course Hospital course: puma is a 66-year-old male, with a PMHx of Morbid obesity, endocarditis in August of this year, atrial fibrillation, type 2 diabetes, hypertension, liver cirrhosis, anxiety and depression who was transferred from [facility] for acute kidney injury.? Patient presented with generalized weakness and disorientation at [facility]. He was noted to have blood sugars in the 400s and hypotensive withsystolic blood pressures in the 80s.? Blood work revealed a creatinine of 4.34.?He states that he has been feeling weak for the past couple weeks, with a productive cough and poor appetite, due to loss of taste.? He denies chest pain or palpitation. No pain? with inspiration.? No abdominal pain or indigestion, constipation or diarrhea, nausea or vomiting.? No dysuria or retention.? No headache or dizziness.? No fevers Paperwork from [facility] reviewed, chest x-ray with no acute cardiopulmonary process.? Sodium 129.? Potassium 3.3.? Creatinine 2.52.? WBC 6.8.? Hemoglobin 12.5.? Glucose 4.34.? Patient will be admitted by the hospitalist team for further evaluation and management. Patient was positive for COVID, patient was alert oriented x3 at [facility], patient states that he has been having symptoms from last couple of weeks, was out of window for Paxil weight, was given dexamethasone, Nephrology was consulted, his creatinine normalized, patient did not require anysupplemental oxygen, HbA1c came out to be 13, patient did tell me that he takes 40 units of Lantus at home, insulin given, patient was also advised to take sliding scale, patient states that he does see family doctor as outpatient, patient advised to follow-up closely with family doctor for further diabetic management Lisinopril was held initially, was resumed at the time of discharge, hydrochlorothiazide was DC'd, patient was discharged home in stable condition, walk test was done prior to the discharge Patient also reported history of sleep apnea, states that he was given CPAP but could not tolerate the mask, patient advised to follow-up with PCP and possiblereferral to sleep clinic, Time Spent with Patient Time spent providing/coordinating discharge services (# min): 32 Diagnostic Studies Completed and Pending Studies Pending studies at discharge: 03/17/22 05:00 Renal Function Panel [CHEM] IN AM 03/18/22 05:00 Renal Function Panel [CHEM] IN AM 03/19/22 05:00 Renal Function Panel [CHEM] IN AM Labs on day of discharge: 03/16/22 07:17: PHA Creatinine Clear 90.76, Sodium 132 L, Potassium , Chloride 99, Carbon Dioxide 25.4, BUN 24 H, Creatinine 1.27, Est GFR ( Amer) > 60, Est GFR (Non-Af Amer) 57, Glucose 265 H D, Calcium 8.4, Phosphorus , Albumin 1.9 L 03/16/22 06:28: POC Glucose 246 03/15/22 20:24: POC Glucose 468 H*, POC Glucose Comment 03/15/22 18:39: POC Glucose 464 H*, POC Glucose Comment 03/15/22 16:38: POC Glucose 470 H*, POC Glucose Comment Cleaned meter 03/15/22 10:41: PHA Creatinine Clear 80.73, Sodium 130 L, Potassium 4.0, Chloride 95, Carbon Dioxide 26.2, BUN 24 H, Creatinine 1.42 H D, Est GFR ( Amer) > 60, Est GFR (Non-Af Amer) 50, Glucose 480 H, Calcium 8.3, Phosphorus 1.9 L, Albumin 1.9 L 03/14/22 06:45: Ur Random Urea Nitrogn 454 Exam Physical Exam Vital Signs: Temp Pulse Resp BP Pulse Ox O2 Del Method O2 Flow Rate 97.8 F 96 H 18 121/83 97 Room Air 1 03/16/22 08:07 03/16/22 08:07 03/16/22 08:07 03/16/22 08:07 03/16/22 08:07 03/16/22 08:07 03/14/22 16:00 Narrative: CONST- Appears well -morbidly obese HEAD - Normocephalic and atraumatic EENT-Sclera nonicteric and conjunctive are nonerythemic, moist oral mucosa, pharynx clear NECK-Supple, no cervical lymphadenopathy CARDIAC-normal rate, regular rhythm, normal S1 & S2. PULM-diminished without wheeze or rhonchi, RA, no accessory muscle use or cough noted ABD - Soft.? Bowel sounds are normal. No distention No tenderness.? Morbid obesity EXTREM-no edema BLE calves? nontender SKIN- W/D good turgor MS- MAEX4 spontaneously with equal with equal strength NEURO- A&Ox3 speech clear and tongue midline, equal facial symmetry no focal motor deficits PSYCH-Mood, affect? and behavior appropriate Discharge Plan Discharge Plan Patient Disposition: Home Health Services Additional Instructions: You tested positive for COVID-19 on 03/13/22. Please see attached COVID-19 discharge instructions. Take aspart insulin according to this likely being scale, instructions added Follow-up with PCP closely for diabetes management Recommended to lose weight Follow-up with pulmonary as outpatient for underlying untreated sleep apnea Instructions: Blood Glucose Monitoring, [facility] [place]19 Discharge Instructions Prescriptions: New Levemir FlexTouch U-100 Insuln 100 unit/mL (3 mL) Insulin Pen 40 unit subcut DAILY.WITH.BKFAST 30 Days Qty: 12 0RF zinc sulfate [Orazinc] 50 mg zinc (220 mg) Capsule 220 mg PO DAILY 7 Days Qty: 31 0RF dexamethasone 6 mg Tablet 6 mg PO DAILY 6 Days Qty: 6 0RF insulin aspart U-100 [Novolog Flexpen U-100 Insulin] 100 unit/mL (3 mL) Insulin Pen 0 units subcut TID.WM.HS 30 Days Qty: 5 0RF Continued levothyroxine 200 mcg tablet 200 mcg PO DAILY.0630 sertraline [Zoloft] 100 mg tablet 100 mg PO HS atorvastatin 40 mg Tablet 40 mg PO HS triamcinolone acetonide 0.1 % Lotion 1 applic topical BID Qty: 0 0RF hydroxyzine HCl 25 mg tablet 25 mg PO HS gabapentin 100 mg capsule 100 mg PO BID Label Comments: TAKE 1 (ONE) CAPSULE BY MOUTH TWO TIMES DAILY lisinopril 40 mg tablet 40 mg PO DAILY clotrimazole 1 % cream 1 applic TOPICAL DAILY PRN (Reason: Dry Skin) trazodone 50 mg Tablet 50 mg PO QHS ropinirole 5 mg Tablet 5 mg PO QHS Rx Instructions: administer 1-3 hours before bedtime nystatin 100,000 unit/mL suspension 100,000 unit PO QHS esomeprazole magnesium 40 mg capsule,delayed release(DR/EC) 40 mg PO DAILY Label Comments: TAKE ONE CAPSULE BY MOUTH ONCE DAILY albuterol sulfate 90 mcg/actuation HFA aerosol inhaler 2 puff INHALATION Q4HR PRN (Reason: Shortness Of Breath) Label Comments: INHALE 2 PUFFS BY MOUTH EVERY 4 HOURS NEEDED pioglitazone 30 mg tablet 30 mg PO DAILY isosorbide mononitrate 30 mg tablet extended release 24 hr 30 mg PO DAILY Discontinued hydrochlorothiazide 25 mg Tablet 25 mg PO DAILY celecoxib [Celebrex] 200 mg capsule 200 mg PO HS prednisone 10 mg tablet 20 mg PO DAILY Follow Up: Ayden Freeman MD [Primary Care Provider] - (Office is currently closed, please call to schedule a follow up appointment for as soon as possible as it is recommended to follow up in 1-3 days from discharge.) Documented By: Xin Phan MD 03/16/22 0934 Signed By: <Electronically signed by Xin Phan MD> 03/16/22 0937 [facility] Work Phone: [phone] Progress note Author Sarah Osuna [facility] March 15, 2022 3:43pm Note Date/Time March 15, 2022 3:3 7pm [facility] [address] [place] [address] Nephrology Progress Note Signed Patient: Stephane Patterson MR#: [id number] : 1955 Acct:[id number] Age/Sex: 66 / M Adm Date: 2 Loc: Room: [address] [place] [address] Type: ADM IN Attending Dr: Xin Phan MD Copies to: ~ Date of Service: 03/15/2022 Subjective Subjective Narrative: This is 66-year-old male patient with a past medical history of morbid obesity, endocarditis, paroxysmal A. fib, diabetes type 2, anxiety and depression and chronic kidney disease stage III. Patient presented to [facility] with feeling weak and disoriented for 2 weeks which has gotten worse. Patient has been having cough with decreased appetite and loss of taste for a week. Lab at [facility] shows acute kidney injury with creatinine up to 4.3 mg/dL along with hyperglycemia with initial blood glucose level more than 400. Patient's blood pressure was in the 80s at [facility]. Patient was given IV fluid and transferred to our hospital where he was admitted. Patient tested positive for COVID 19. Currently on 2 L nasal cannula. He is only on dexamethasone for COVID-19 Renal team is consulted for acute kidney injury on chronic kidney disease. I reviewed the patient medications he is on lisinopril hydrochlorothiazide and isosorbide mononitrate for hypertension management. Patient also taking Celebrex for pain 200 mg at at bedtime. Home lisinopril was stopped at admission. Patient currently in normal saline 100 cc/h. Patient is a mentioned above on dexamethasone. He is also on insulin for diabetes control Patient was seen and examined in his room. On nasal cannula 2 L. Denied nauseavomiting or worsening breathing. No chest pain Denies urinary obstructive symptoms. No hematuria. No skin rash Interval history: Patient was seen and examined in his room. He is on room air today. Awake alert oriented. Denied worsening breathing. No cough. No chest pain. No nausea no vomiting. He is eating well Has a trace edema of lower extremities Remains in normal saline at 100 cc/h Exam Physical Exam Vital Signs: Temp Pulse Resp BP Pulse Ox O2 Del Method O2 Flow Rate 97.6 F 97 H 18 151/105 H 97 Room Air 1 03/15/22 12:00 03/15/22 12:00 03/15/22 12:00 03/15/22 12:03/15/22 12:03/15/22 12:03/14/22 16:00 Narrative: General: No acute distress. Morbidly obese patient Psychiatry: Patient is cooperative. Calm no agitation Head :atraumatic normocephalic Eyes: PERRLA. Neck: Thick neck Heart: S1-S2. RRR Respiratory: Clear to auscultation. No wheezing. No crackles Abdomen: Soft, positive bowel sounds,no tenderness. Neurology: Awake alert oriented x3. No focal deficits Extremity. No cyanosis. No edema Skin: No skin rash Objective Intake and Output I&O: Intake & Output 03/12/22 03/13/22 03/14/22 03/15/22 23:59 23:59 23:59 23:59 Intake Total 2150 / 2150 1999 Output Total 975 / 975 700 / 700 Balance 1175 / 1175 1300 / 1300 Weight 162 kg 162 kg Meds and Allergies Meds: Active Medications Acetaminophen (Acetaminophen 325 Mg Tablet) 650 mg PO Q4H PRN PRN Reason: Pain Scale 1 - 5 Stop: 03/14/23 03:09 Last Admin: 03/14/22 20:48 Dose: 650 mg Ascorbic Acid (Ascorbic Acid 500 Mg Tablet) 500 mg PO DAILY [facility] Stop: 03/14/23 08:59 Last Admin: 03/15/22 08:34 Dose: 500 mg Dexamethasone 2 mg/ (Dexamethasone 4 mg) 6 mg PO DAILY [facility] Stop: 03/22/23 08:59 Last Admin: 03/15/22 08:34 Dose: 6 mg Dextrose (Dextrose 50% In Water 25 Gm/50 Ml Syringe) 0 gm IV-PUSH PRN PRN PRN Reason: Hypoglycemia Stop: 03/14/23 03:03 Glucose (Dextrose 40% Gel 15 Gm Tube) 0 gm PO PRN PRN PRN Reason: Hypoglycemia Stop: 03/14/23 03:03 Guaifenesin (Guaifenesin 600 Mg Tab.Er.12h) 600 mg PO BID PRN PRN Reason: Congestion Stop: 03/14/23 03:09 Last Admin: 03/14/22 20:48 Dose: 600 mg Heparin Sodium (Porcine) (Heparin 5,000 Unit/Ml Vial) 5,000 unit SUBCUT Q12HR [facility] Stop: 03/14/23 08:59 Last Admin: 03/15/22 08:34 Dose: 5,000 unit Sodium Chloride (0.9% Sodium Chloride 1,000 Ml) 1,000 mls @ 100 mls/hr IV .[id number] Stop: 03/14/23 01:59 Last Admin: 03/15/22 06:46 Dose: 100 mls/hr Insulin Aspart (Insulin Aspart 300 Units/3 Ml Insuln.Pen) 0 units SUBCUT TID.[facility]; Protocol Stop: 03/14/23 07:59 Last Admin: 03/15/22 12:06 Dose: 9 units Insulin Detemir (Insulin Detemir 300 Units/3 Ml Insuln.Pen) 40 units SUBCUT DAILY.WITH.BKFAST JOSIANE Stop: 03/16/23 07:59 Zinc Sulfate (Zinc Sulfate 220 Mg Capsule) 220 mg PO DAILY JOSIANE Stop: 03/14/23 08:59 Last Admin: 03/15/22 08:34 Dose: 220 mg Allergies metformin Adverse Reaction (Verified 03/14/22 03:15) Flatulence prochlorperazine [From Compazine] Adverse Reaction (Verified 03/14/22 03:15) Flatulence Results Labs CBC & Chem 7: 03/14/22 02:01 03/15/22 10:41 Labs: 03/14/22 03/15/22 14:50 10:41 BUN 24 H Creatinine 1.42 H D Phosphorus 1.9 L Albumin 1.9 L Protein/Creatinin Ratio 169 Radiology Impressions Impressions - last 24 hours: Any impression(s) listed above is documentation that was entered by the reading physician into a diagnostic report(s) for Stephane Patterson. I have reviewed the report(s) and am incorporating any findings in the treatment plan of this patient where applicable. A&P - Nephrology Assessment/Plan (1) FRANC (acute kidney injury): Assessment/Problem Details: Acute kidney injury is likely prerenal likely related to hypotension along with poor oral intake and osmotic diuresis from hyperglycemia. Sodium fraction excretion 0.3%. Creatinine peaked at 4.3 mg/dL. Serum creatinine last year was1.7 mg/dL. Patient could have component of CKD progression (2) Chronic kidney disease, stage III (moderate): Assessment/Problem Details: Patient has CKD stage III likely from diabetic nephropathy UA showed no proteinuria. Protein to creatinine ratio was 69 mg/g (3) Hypertension: Assessment/Problem Details: Patient presented with low blood pressure likely related to poor oral intake andbeing on multiple blood pressure at at home. (4) Diabetes: Assessment/Problem Details: Patient presented with initial blood glucose level more than 400. Patient also on dexamethasone for COVID which is likely contributing to hyperglycemia. Patient is on insulin to control blood glucose level as directed by the primary service (5) COVID: Assessment/Problem Details: Patient tested positive for COVID-19 virus. He is likely hypoxic. On nasal cannula 2 L/min. Only on dexamethasone. He is not candidate for remdesivir dueto FRANC (6) Hyponatremia: Assessment/Problem Details: Likely from hyperglycemia. Mild and asymptomatic Plan - Serum creatinine peaked at 4.3 mg deciliter. Sodium fraction excretion was below 1% indicating prerenal injury likely from low blood pressure, poor oral intake, and hyperglycemia osmotic diuresis. -Serum creatinine this morning 1.4 mg deciliter which is likely his baseline I will stop IV fluid -Continue holding home blood pressure medication isosorbide mononitrate, hydrochlorothiazide and lisinopril -Keep mean arterial pressure more than 65 to maintain renal perfusion. -We will continue to monitor renal function panel along with electrolytes and volume status -On dexamethasone for COVID 19 viral infection treatment as directed by the primary service -Sodium level is lower today 130 mmol/L. I will stop IV fluid. Patient might have a component of SIADH. Keep blood glucose level below 200 -Hemoglobin A1c 13%. I explained to the patient the necessity of controlling diabetes to attenuate worsening kidney function. Patient currently in insulin as directed by the primary service -Please avoid NSAIDs. Please DC Celebrex at discharge. -Check renal function panel in the morning Renal team will continue to follow. Call if any question Documented By: Sarah Osuna MD 03/15/22 1537 Signed By: <Electronically signed by Sarah Osuna MD> 03/15/22 9289 [facility] Work Phone: [phone]) 151-307708-05-2022 Progress note Author Xin Phan [facility] March 15, 2022 12:44pm Note Date/Time March 15, 2022 12: 44pm [facility] [address] [place] [address] Hospitalist Progress Note Signed Patient: Stephane Patterson MR#: [id number] : 1955 Acct:[id number] Age/Sex: 66 / M Adm Date: 2 Loc: Room: [address] [place] [address] Type: ADM IN Attending Dr: Xin Phan MD Copies to: ~ Date of Service: 03/15/2022 Subjective Subjective Narrative: Patient is a 66-year-old male, with a PMHx of Morbid obesity, endocarditis in August of this year, atrial fibrillation, type 2 diabetes, hypertension, liver cirrhosis, anxiety and depression who was transferred from [facility] for acute kidney injury. Patient presented with generalized weakness and disorientation at [facility]. He was noted to have blood sugars in the 400s and hypotensive withsystolic blood pressures in the 80s. Blood work revealed a creatinine of 4.34. He states that he has been feeling weak for the past couple weeks, with a productive cough and poor appetite, due to loss of taste. He denies chest pain or palpitation. No pain with inspiration. No abdominal pain or indigestion, constipation or diarrhea, nausea or vomiting. No dysuria or retention. No headache or dizziness. No fevers Paperwork from [facility] reviewed, chest x-ray with no acute cardiopulmonary process. Sodium 129. Potassium 3.3. Creatinine 2.52. WBC 6.8. Hemoglobin 12.5. Glucose 4.34. Patient will be admitted by the hospitalist team for further evaluation and management. INTERVAL HISTORY : Patient seen and examined, patient states that he is feeling better, feeling very weak and fatigued, patient states that he has been sick for most a month, patient currently on room air, saturating in high 90s, creatinine is getting betterPatient currently denies any chest pain shortness of breath Exam Physical Exam Vital Signs: Temp Pulse Resp BP Pulse Ox O2 Del Method O2 Flow Rate 97.6 F 97 H 18 151/105 H 97 Room Air 1 03/15/22 12:00 03/15/22 12:00 03/15/22 12:00 03/15/22 12:00 03/15/22 12:00 03/15/22 12:00 03/14/22 16:00 Narrative: CONST- Appears well -morbidly obese HEAD - Normocephalic and atraumatic EENT-Sclera nonicteric and conjunctive are nonerythemic, moist oral mucosa, pharynx clear NECK-Supple, no cervical lymphadenopathy CARDIAC-normal rate, regular rhythm, normal S1 & S2. PULM-diminished without wheeze or rhonchi, RA, no accessory muscle use or cough noted ABD - Soft.? Bowel sounds are normal. No distention No tenderness.? Morbid obesity EXTREM-no edema BLE calves? nontender SKIN- W/D good turgor MS- MAEX4 spontaneously with equal with equal strength NEURO- A&Ox3 speech clear and tongue midline, equal facial symmetry no focal motor deficits PSYCH-Mood, affect? and behavior appropriate Objective Lab Results CBC & Chem 7: 03/14/22 02:01 03/15/22 10:41 Meds Allergies and Active Meds Allergies metformin Adverse Reaction (Verified 03/14/22 03:15) Flatulence prochlorperazine [From Compazine] Adverse Reaction (Verified 03/14/22 03:15) Flatulence Active Meds: Active Medications Generic Name Dose Route Start Last Admin Trade Name Rahel PRN Reason Stop Dose Admin Acetaminophen 650 mg 03/14/22 03:10 03/14/22 20:48 Acetaminophen 325 Mg Tablet PO 03/14/23 03:09 650 mg Q4H PRN Administration Pain Scale 1 - 5 Ascorbic Acid 500 mg 03/14/22 09:00 03/15/22 08:34 Ascorbic Acid 500 Mg Tablet PO 03/14/23 08:59 500 mg DAILY JOSIANE Administration Dexamethasone 2 mg/ 6 mg 03/14/22 09:00 03/15/22 08:34 Dexamethasone 4 mg PO 03/22/23 08:59 6 mg DAILY JOSIANE Administration Dextrose 0 gm 03/14/22 03:04 Dextrose 50% In Water 25 Gm/50 Ml Syringe IV-PUSH 03/14/23 03:03 PRN PRN Hypoglycemia Glucose 0 gm 03/14/22 03:04 Dextrose 40% Gel 15 Gm Tube PO 03/14/23 03:03 PRN PRN Hypoglycemia Guaifenesin 600 mg 03/14/22 03:10 03/14/22 20:48 Guaifenesin 600 Mg Tab.Er.12h PO 03/14/23 03:09 600 mg BID PRN Administration Congestion Heparin Sodium (Porcine) 5,000 unit 03/14/22 09:00 03/15/22 08:34 Heparin 5,000 Unit/Ml Vial SUBCUT 03/14/23 08:59 5,000 unit Q12HR JOSIANE Administration Sodium Chloride 1,000 mls @ 100 mls/hr 03/14/22 02:00 03/15/22 06:46 0.9% Sodium Chloride 1,000 Ml IV 03/14/23 01:59 100 mls/hr .Q10H JOSIANE Administration Insulin Aspart 0 units 03/14/22 08:00 03/15/22 12:06 Insulin Aspart 300 Units/3 Ml Insuln.Pen SUBCUT 08/04/23 07:59 9 units TID.WM.HS JOSIANE Administration Protocol Insulin Detemir 35 units 03/14/22 08:00 03/15/22 07:59 Insulin Detemir 300 Units/3 Ml Insuln.Pen SUBCUT 03/14/23 07:59 35 units DAILY.WITH.BKFAST JOSIANE Administration Zinc Sulfate 220 mg 03/14/22 09:00 03/15/22 08:34 Zinc Sulfate 220 Mg Capsule PO 03/14/23 08:59 220 mg DAILY JOSIANE Administration A&P - Hospitalist Assessment/Plan (1) FRANC (acute kidney injury): (2) COVID: (3) Hyperglycemia: Plan Acute on chronic kidney injury -likely prerenal due to hypovolemia secondary to poor oral intake. Presented at [facility] with low blood pressures in the 80s. ?Creatinine at [facility] 4.34. Baseline creatinine ~1.4 - Nephrology has been consulted, creatinine is 1.4 today ?Monitor BMP daily, COVID-19 positive -unvaccinated. ? Presented with productive cough, hypoxia, loss of taste and generalized weakness ? Afebrile, no leukocytosis ? Chest x-ray showed interstitial prominence, mild basilar airspace disease, consider atelectasis versus minimal infiltrate or interstitial edema Patient currently on room air ? Continue dexamethasone ?We will have to hold off on Paxlovid due to renal function and onset of symptoms more than a week ago ? Airborne isolation ? Zinc, vitamin C, Mucinex, Tylenol ?DVT prophylaxis with heparin due to renal function Hyperglycemia-hx type 2 diabetes -on insulin,, likely due to noncompliance to diabetic diet ?Blood sugar at [facility] was in the 400s ? Will increase Levemir to 40 units ?HbA1c is 13 Chronic conditions: 1. Atrial fibrillation-not on AC 2. Type 2 diabetes 3. Hypertension 4. Liver cirrhosis 5. Anxiety and depression 6. Levothyroxine 7. Hyperlipidemia CODE STATUS: Full code DVT prophylaxis: Heparin Anticipate discharge likely tomorrow Documented By: Xin Phan MD 03/15/22 1240 Signed By: <Electronically signed by Xin Phan MD> 03/15/22 1244 [facility] Work Phone: [phone]) 196-989608-04-2022 Progress note Author Renato Looney [facility] March 14, 2022 2:14pm Note Date/Time March 14, 2022 2:1 4pm [facility] [address] [place] [id number] Progress Note Signed Patient: Stephane Patterson MR#: [id number] : 1955 Acct:[id number] Age/Sex: 66 / M Adm Date: 2 Loc: Room: [address] [place] [address] Type: ADM IN Attending Dr: Renato Looney MD Copies to: ~ Date of Service: 03/14/2022 Progress Narrative Note PROGRESS NOTE Progress Note: Patient seen and evaluated by fine dining server early this morning and also by myself. Briefly, patient is a 66-year-old male past medical history significant for obesity, atrial fibrillation, hypertension, diabetes, liver cirrhosis, mood disorder and recent endocarditis infection [facility] found to have COVID-19 and acute kidney injury and was transferred to [facility] for further evaluation and management. 1. Acute hypoxic respiratory failure Patient currently on 2 L/min nasal cannula to maintain sats in the 90s. Respiratory failure secondary to COVID-19 infection below Wean O2 as tolerates. 2. COVID-19 infection We will continue dexamethasone initiated on admission Infectious disease will be consulted for any further recommendations 3. Acute on chronic CKD stage III Patient's creatinine on admission noted to be elevated above baseline at 2.5 to with a GFR of 26; baseline creatinine approximately 1.3-1.5 Suspect prerenal secondary to dehydration therefore we will continue IV fluids The rest of patient's comorbidities are stable and will continue home medications for the following: HTN DM A.fib Mood disorder Documented By: Renato Looney MD 03/14/22 1409 Signed By: <Electronically signed by Renato Looney MD> 03/14/22 1414 [facility] Work Phone: [phone] 120-590408-04-2022 Consult note Author Sarah Osuna [facility] March 14, 2022 12:30pm Note Date/Time March 14, 2022 12: 30pm [facility] [address] [place] [id number] Nephrology Consult Note Signed Patient: Stephane Patterson MR#: [id number] : 1955 Acct:[id number] Age/Sex: 66 / M Adm Date: 2 Loc: 3T Room: [address] [place] [address] Type: ADM IN Attending Dr: Renato Looeny MD Copies to: MD Renato Engel MD Marc Naderer, MD~ Providers Consult Date: 03/14/22 Requesting Provider: Renato Looney MD Primary Care Provider: Ayden Freeman MD HPI Reason for Consult: Acute kidney injury and chronic kidney disease History of Present Illness: This is 66-year-old male patient with a past medical history of morbid obesity, endocarditis, paroxysmal A. fib, diabetes type 2, anxiety and depression and chronic kidney disease stage III. Patient presented to [facility] with feeling weak and disoriented for 2 weeks which has gotten worse. Patient has been having cough with decreased appetite and loss of taste for a week. Lab at [facility] shows acute kidney injury with creatinine up to 4.3 mg/dL along with hyperglycemia with initial blood glucose level more than 400. Patient's blood pressure was in the 80s at [facility]. Patient was given IV fluid and transferred to our hospital where he was admitted. Patient tested positive for COVID 19. Currently on 2 L nasal cannula. He is only on dexamethasone for COVID-19 Renal team is consulted for acute kidney injury on chronic kidney disease. I reviewed the patient medications he is on lisinopril hydrochlorothiazide and isosorbide mononitrate for hypertension management. Patient also taking Celebrex for pain 200 mg at at bedtime. Home lisinopril was stopped at admission. Patient currently in normal saline 100 cc/h. Patient is a mentioned above on dexamethasone. He is also on insulin for diabetes control Patient was seen and examined in his room. On nasal cannula 2 L. Denied nauseavomiting or worsening breathing. No chest pain Denies urinary obstructive symptoms. No hematuria. No skin rash Review of Systems Review of Systems All other systems reviewed & are negative unless noted below or in HPI PMFSH Vaccinated for COVID-19?: No Medical History Abdominal mass Anxiety Arthritis Back pain Cirrhosis Colonoscopy planned Deviated nasal septum Diabetes mellitus, type 2 Eczema History of left heart catheterization Pneumonia Surgical History History of cholecystectomy History of hydrocelectomy History of lithotripsy History of nasal surgery Family History Mother Cancer Social History Smoking Status: Never smoker Substance Use Type: None Social History Comments: [facility] Medications & Allergies Allergies metformin Adverse Reaction (Verified 03/14/22 03:15) Flatulence prochlorperazine [From Compazine] Adverse Reaction (Verified 03/14/22 03:15) Flatulence Home Medications levothyroxine 200 mcg tablet 200 mcg PO DAILY.0630 07/20/20 [History Confirmed 03/14/22] sertraline 100 mg tablet (Zoloft) 100 mg PO HS 07/26/20 [History Confirmed 03/14/22] atorvastatin 40 mg tablet 40 mg PO HS 07/27/20 [History Confirmed 03/14/22] hydrochlorothiazide 25 mg tablet 25 mg PO DAILY 07/27/20 [History Confirmed 03/14/22] triamcinolone acetonide 0.1 % lotion 1 applic topical BID #0 mL 08/02/20 [Rx Confirmed 03/14/22] celecoxib 200 mg capsule (Celebrex) 200 mg PO HS 08/07/20 [History Confirmed 08/15/20] albuterol sulfate 90 mcg/actuation aerosol inhaler 2 puff inhalation Q4HR PRN Shortness Of Breath 03/14/22 [History Confirmed 03/14/22] clotrimazole 1 % topical cream 1 applic topical DAILY PRN Dry Skin 03/14/22 [History Confirmed 03/14/22] esomeprazole magnesium 40 mg capsule,delayed release 40 mg PO DAILY 03/14/22 [History Confirmed 03/14/22] gabapentin 100 mg capsule 100 mg PO BID 03/14/22 [History Confirmed 03/14/22] hydroxyzine HCl 25 mg tablet 25 mg PO HS 03/14/22 [History Confirmed 03/14/22] isosorbide mononitrate 30 mg tablet,extended release 24 hr 30 mg PO DAILY 03/14/22 [History Confirmed 03/14/22] lisinopril 40 mg tablet 40 mg PO DAILY 03/14/22 [History Confirmed 03/14/22] nystatin 100,000 unit/mL oral suspension 100,000 unit PO QHS 03/14/22 [History Confirmed 03/14/22] pioglitazone 30 mg tablet 30 mg PO DAILY 03/14/22 [History Confirmed 03/14/22] prednisone 10 mg tablet 20 mg PO DAILY 03/14/22 [History Confirmed 03/14/22] ropinirole 5 mg tablet 5 mg PO QHS 03/14/22 [History Confirmed 03/14/22] trazodone 50 mg tablet 50 mg PO QHS 03/14/22 [History Confirmed 03/14/22] Active Medications: Active Medications Acetaminophen (Acetaminophen 325 Mg Tablet) 650 mg PO Q4H PRN PRN Reason: Pain Scale 1 - 5 Stop: 03/14/23 03:09 Ascorbic Acid (Ascorbic Acid 500 Mg Tablet) 500 mg PO DAILY [facility] Stop: 03/14/23 08:59 Last Admin: 03/14/22 08:34 Dose: 500 mg Dexamethasone 2 mg/ (Dexamethasone 4 mg) 6 mg PO DAILY [facility] Stop: 03/22/23 08:59 Last Admin: 03/14/22 08:33 Dose: 6 mg Dextrose (Dextrose 50% In Water 25 Gm/50 Ml Syringe) 0 gm IV-PUSH PRN PRN PRN Reason: Hypoglycemia Stop: 03/14/23 03:03 Glucose (Dextrose 40% Gel 15 Gm Tube) 0 gm PO PRN PRN PRN Reason: Hypoglycemia Stop: 03/14/23 03:03 Guaifenesin (Guaifenesin 600 Mg Tab.Er.12h) 600 mg PO BID PRN PRN Reason: Congestion Stop: 03/14/23 03:09 Heparin Sodium (Porcine) (Heparin 5,000 Unit/Ml Vial) 5,000 unit SUBCUT Q12HR [facility] Stop: 03/14/23 08:59 Last Admin: 03/14/22 08:39 Dose: 5,000 unit Sodium Chloride (0.9% Sodium Chloride 1,000 Ml) 1,000 mls @ 100 mls/hr IV .[id number] Stop: 03/14/23 01:59 Last Admin: 03/14/22 03:26 Dose: 100 mls/hr Insulin Aspart (Insulin Aspart 300 Units/3 Ml Insuln.Pen) 0 units SUBCUT TID.WM.[facility]; Protocol Stop: 03/14/23 07:59 Last Admin: 03/14/22 12:06 Dose: Not Given Insulin Detemir (Insulin Detemir 300 Units/3 Ml Insuln.Pen) 35 units SUBCUT DAILY.WITH.BKFAST JOSIANE Stop: 03/14/23 07:59 Last Admin: 03/14/22 08:34 Dose: 35 units Zinc Sulfate (Zinc Sulfate 220 Mg Capsule) 220 mg PO DAILY JOSIANE Stop: 03/14/23 08:59 Last Admin: 03/14/22 08:34 Dose: 220 mg Exam Physical Exam Vital Signs: Temp Pulse Resp BP Pulse Ox O2 Del Method O2 Flow Rate 97.7 F 80 18 126/86 97 Nasal Cannula 2 03/14/22 04:00 03/14/22 08:46 03/14/22 08:46 03/14/22 08:46 03/14/22 08:46 03/14/22 08:46 03/14/22 08:46 Narrative: General: No acute distress. Morbidly obese patient Psychiatry: Patient is cooperative. Calm no agitation Head :atraumatic normocephalic Eyes: PERRLA. Neck: Thick neck Heart: S1-S2. RRR Respiratory: Clear to auscultation. No wheezing. No crackles Abdomen: Soft, positive bowel sounds,no tenderness. Neurology: Awake alert oriented x3. No focal deficits Extremity. No cyanosis. No edema Skin: No skin rash Results Labs CBC & Chem 7: 03/14/22 02:01 03/14/22 02:01 Labs: 03/14/22 02:01 BUN 34 H Creatinine 2.52 H Albumin 2.0 L Radiology Impressions Impressions - last 24 hours: Impressions Chest X-Ray 03/14/22 02:49 IMPRESSION: Interstitial prominence. Mild basilar airspace disease. Consider atelectasis or maybe considered, minimal infiltrate or interstitial edema. Impression dictated by: Michael Tinajero M.D.03/14/2022 8:24 AM Dictation Location: [place] [address] Any impression(s) listed above is documentation that was entered by the reading physician into a diagnostic report(s) for Stephane Patterson. I have reviewed the report(s) and am incorporating any findings in the treatment plan of this patient where applicable. A&P - Nephrology Assessment/Plan (1) FRANC (acute kidney injury): Assessment/Problem Details: Acute kidney injury is likely prerenal likely related to hypotension along with poor oral intake and osmotic diuresis from hyperglycemia. Sodium fraction excretion 0.3%. Creatinine peaked at 4.3 mg/dL. Serum creatinine last year was1.7 mg/dL. Patient could have component of CKD progression (2) Chronic kidney disease, stage III (moderate): Assessment/Problem Details: Patient has CKD stage III likely from diabetic nephropathy. UA 2019 showed 100 protein. No UA this visit (3) Hypertension: Assessment/Problem Details: Patient presented with low blood pressure likely related to poor oral intake andbeing on multiple blood pressure at at home. Continue holding blood pressure medication (4) Diabetes: Assessment/Problem Details: Patient presented with initial blood glucose level more than 400. Patient also on dexamethasone for COVID which is likely contributing to hyperglycemia. Patient is on insulin to control blood glucose level as directed by the primary service (5) COVID: Assessment/Problem Details: Patient tested positive for COVID-19 virus. He is likely hypoxic. On nasal cannula 2 L/min. Only on dexamethasone. He is not candidate for remdesivir dueto FRANC (6) Hyponatremia: Assessment/Problem Details: Likely from hyperglycemia. Mild and asymptomatic Plan - Serum creatinine peaked at 4.3 mg deciliter. Baseline creatinine 1.7 as of last year. Patient could have component of CKD progression and baseline creatinine this year likely higher than last year. Sodium fraction excretion was below 1% indicating prerenal injury likely from low blood pressure, poor oral intake, and hyperglycemia osmotic diuresis. -Serum creatinine this morning 2.5 mg deciliter. I will continue intravascular volume expansion normal saline 100 cc/h -Continue holding home blood pressure medication isosorbide mononitrate, hydrochlorothiazide and lisinopril -Keep mean arterial pressure more than 65 to maintain renal perfusion. -There is no need for renal placement therapy. We will continue to monitor renal function panel along with electrolytes and volume status -I will UA along with protein to creatinine ratio -On dexamethasone for COVID 19 viral infection treatment as directed by the primary service -Hemoglobin A1c 13%. I explained to the patient the necessity of controlling diabetes to attenuate worsening kidney function. Patient currently in insulin as directed by the primary service -Please avoid NSAIDs. Please DC Celebrex at discharge. Thank you for the consult. Renal team will continue to follow. Call if any question Documented By: Sarah Osuna MD 03/14/22 1216 Signed By: <Electronically signed by Sarah Osuna MD> 03/14/22 1230 [facility] Work Phone: [phone]) 484-965908-04-2022 History and physical note Author Mary Jane Riley [facility] March 14, 2022 6:40am Note Date/Time March 14, 2022 2:0 2am [facility] [address] [place] [address] Hospitalist H&P Signed Patient: Stephane Patterson MR#: [id number] : 1955 Acct:[id number] Age/Sex: 66 / M Adm Date: 2 Loc: Room: [address] [place] [address] Type: ADM IN Attending Dr: Mary Jane Hanna MD Copies to: MD Leah Marin APRN Marc Naderer, MD~ HPI DATE OF EXAMINATION: 03/14/22 CHIEF COMPLAINT: FRANC HISTORY OF PRESENT ILLNESS: Patient is a 66-year-old male, with a PMHx of Morbid obesity, endocarditis in August of this year, atrial fibrillation, type 2 diabetes, hypertension, liver cirrhosis, anxiety and depression who was transferred from [facility] for acute kidney injury. Patient presented with generalized weakness and disorientation at [facility]. He was noted to have blood sugars in the 400s and hypotensive withsystolic blood pressures in the 80s. Blood work revealed a creatinine of 4.34. He states that he has been feeling weak for the past couple weeks, with a productive cough and poor appetite, due to loss of taste. He denies chest pain or palpitation. No pain with inspiration. No abdominal pain or indigestion, constipation or diarrhea, nausea or vomiting. No dysuria or retention. No headache or dizziness. No fevers Paperwork from [facility] reviewed, chest x-ray with no acute cardiopulmonary process. Sodium 129. Potassium 3.3. Creatinine 2.52. WBC 6.8. Hemoglobin 12.5. Glucose 4.34. Patient will be admitted by the hospitalist team for further evaluation and management. Review of Systems Review of Systems Review of systems: 10 point review of systems obtained, negative unless noted in the HPI or below [facility] Medical History Abdominal mass Anxiety Arthritis Back pain Cirrhosis Colonoscopy planned Deviated nasal septum Diabetes mellitus, type 2 Eczema History of left heart catheterization Pneumonia Surgical History History of cholecystectomy History of hydrocelectomy History of lithotripsy History of nasal surgery Family History Mother Cancer Social History Smoking Status: Never smoker Substance Use Type: None Social History Comments: [facility] Medications and Allergies Allergies metformin Adverse Reaction (Verified 03/14/22 03:15) Flatulence prochlorperazine [From Compazine] Adverse Reaction (Verified 03/14/22 03:15) Flatulence Home Medications levothyroxine 200 mcg tablet 200 mcg PO DAILY.0630 07/20/20 [History Confirmed 03/14/22] sertraline 100 mg tablet (Zoloft) 100 mg PO HS 07/26/20 [History Confirmed 03/14/22] atorvastatin 40 mg tablet 40 mg PO HS 07/27/20 [History Confirmed 03/14/22] hydrochlorothiazide 25 mg tablet 25 mg PO DAILY 07/27/20 [History Confirmed 03/14/22] triamcinolone acetonide 0.1 % lotion 1 applic topical BID #0 mL 08/02/20 [Rx Confirmed 03/14/22] celecoxib 200 mg capsule (Celebrex) 200 mg PO HS 08/07/20 [History Confirmed 08/15/20] albuterol sulfate 90 mcg/actuation aerosol inhaler 2 puff inhalation Q4HR PRN Shortness Of Breath 03/14/22 [History Confirmed 03/14/22] clotrimazole 1 % topical cream 1 applic topical DAILY PRN Dry Skin 03/14/22 [History Confirmed 03/14/22] esomeprazole magnesium 40 mg capsule,delayed release 40 mg PO DAILY 03/14/22 [History Confirmed 03/14/22] gabapentin 100 mg capsule 100 mg PO BID 03/14/22 [History Confirmed 03/14/22] hydroxyzine HCl 25 mg tablet 25 mg PO HS 03/14/22 [History Confirmed 03/14/22] isosorbide mononitrate 30 mg tablet,extended release 24 hr 30 mg PO DAILY 03/14/22 [History Confirmed 03/14/22] lisinopril 40 mg tablet 40 mg PO DAILY 03/14/22 [History Confirmed 03/14/22] nystatin 100,000 unit/mL oral suspension 100,000 unit PO QHS 03/14/22 [History Confirmed 03/14/22] pioglitazone 30 mg tablet 30 mg PO DAILY 03/14/22 [History Confirmed 03/14/22] prednisone 10 mg tablet 20 mg PO DAILY 03/14/22 [History Confirmed 03/14/22] ropinirole 5 mg tablet 5 mg PO QHS 03/14/22 [History Confirmed 03/14/22] trazodone 50 mg tablet 50 mg PO QHS 03/14/22 [History Confirmed 03/14/22] Exam Const Other: CONST- Appears well -morbidly obese HEAD - Normocephalic and atraumatic EENT-Sclera nonicteric and conjunctive are nonerythemic, moist oral mucosa, pharynx clear NECK-Supple, no cervical lymphadenopathy CARDIAC-normal rate, regular rhythm, normal S1 & S2. PULM-diminished without wheeze or rhonchi, RA, no accessory muscle use or cough noted ABD - Soft. Bowel sounds are normal. No distention No tenderness. Morbid obesity EXTREM-no edema BLE calves nontender SKIN- W/D good turgor MS- MAEX4 spontaneously with equal with equal strength NEURO- A&Ox3 speech clear and tongue midline, equal facial symmetry no focal motor deficits PSYCH-Mood, affect and behavior appropriate A&P - Hospitalist Assessment/Plan (1) FRANC (acute kidney injury): (2) COVID: (3) Hyperglycemia: Plan Acute on chronic kidney injury -likely prerenal due to hypovolemia secondary to poor oral intake. Presented at [facility] with low blood pressures in the 80s. ?Creatinine at [facility] 4.34. Baseline creatinine ~1.4 ?Urine sodium, creatinine, urea pending ? Urine output monitoring ? Start IV fluids ? Hold home lisinopril and renally adjust medications ?Consider renal ultrasound if no improvement ? Nephrology consult ?Monitor BMP COVID-19 positive -unvaccinated. ? Presented with productive cough, hypoxia, loss of taste and generalized weakness ? Afebrile, no leukocytosis ? Chest x-ray from [facility] did not show any acute cardiopulmonary disease, will repeat CXR now ? Continue with supplemental oxygen ?Dexamethasone 6 mg daily ?We will have to hold off on Paxlovid due to renal function ? Airborne isolation ? Zinc, vitamin C, Mucinex, Tylenol ?DVT prophylaxis with heparin due to renal function Hyperglycemia-hx type 2 diabetes -on insulin,, likely due to noncompliance to diabetic diet ?Blood sugar at [facility] was in the 400s ?Basal insulin 35 units, SSI, Accu-Cheks before meals and at bedtime ?Hypoglycemic protocol ?Check A1c Chronic conditions: 1. Atrial fibrillation-not on AC 2. Type 2 diabetes 3. Hypertension 4. Liver cirrhosis 5. Anxiety and depression 6. Levothyroxine 7. Hyperlipidemia CODE STATUS: Full code DVT prophylaxis: Heparin Attending Provider Attestation Attending Physician Attestation: I personally saw this patient on the day of the encounter, reviewed the history,performed the long elements of the exam, formulated the plan of care and confirmed the resident's/athletic training internship/medical student's dictation/written note. Patient is a 66-year-old male with multiple medical problems including obesity/liver cirrhosis/type 2 diabetes mellitus who was transferred to us from a different facility after he initially presented there due to generalized weakness abdomen on for couple days, the patient stated that he has not been eating or drinking for a while and he felt weak over the other hospital the patient was found to have acute on chronic kidney disease/hyperglycemia without DKA and the patient was also found to be positive for COVID. *Patient is being admitted to the hospital here due to Acute hypoxemic respiratory failure secondary to COVID pneumonitis Hyperglycemia without DKA Acute on chronic kidney disease secondary to intravascular depletion and dehydration ? We will start patient on dexamethasone ? Patient does not qualify for remdesivir/baricitinib or Paxlovid given his liver cirrhosis and kidney injury ? Start patient on insulin 0.2 units/kg daily with sliding scale insulin ? Gentle hydration ? Hold all nephrotoxic agents ? PT/OT Documented By: Leah Huang APRN 03/14/22 0156 Signed By: <Electronically signed by KATT Huang> 03/14/224 <Electronically signed by Mary Jane Hanna MD> 03/14/22 0640 [facility] Work Phone: 1(531) 407-397904-19-2022 Progress note Author Lupe Hernandez [facility] April 09, 2022 3:32pm Note Date/Time April 09, 2022 1: 08pm [facility] [address] [place] [address] Hospitalist Progress Note Signed with Addenda Patient: Stephane Patterson MR#: [id number] : 1955 Acct:[id number] Age/Sex: 66 / M Adm Date: 2 Loc: Room: [address] [place] [address] Type: DIS INOo Attending Dr: Lupe Hernandez MD Copies to: ~ ADDENDUM1 Patient was personally seen by me on the day of encounter, reviewed his history and performed long elements of exam and formulated the plan of care and confirmedthe residents note below. Unfortunately patient has been denied by insurance for [facility]p facility after peer to peer. He will be discharged home with home health care. Stronglyencouraged for outpatient sleep study and follow-up with hematology/oncology regarding monoclonal gammopathy. Dose of gabapentin can be titrated at outpatient setting regarding neuropathic pain. Also counseled regarding strict diabetic control. He has been started on GLP-1 agonist as well. Unfortunately risk of readmission remains high Addendum Documented By: Lupe Hernandez MD 04/09/221531 Addendum Signed By: <Electronically signed by Lupe Hernandez MD> 04/09/221531 Date of Service: 04/09/2022 Subjective Subjective Narrative: Reassessment on a 66-year-old male with past medical history of obstructive sleep apnea, hypothyroidism, failure to thrive, paroxysmal A. fib, CKD 3, uzc-hrgyauo-uhxrlidzm diabetes, CHF is being monitored on the floor while a jmek-ci-qbxl was had with regards to the patient's discharge to a [facility] facility. Insurance company has denied this coverage and patient will unfortunately have to be discharged home. Patient states that he is unhappy with the decision that he is does not feel back to his normal functional capacity, still has significant neuropathic pain in his feet as well as back pain. Does have increasing oxygen requirements during his time here (COVID-negative x2) and is currently being maintained on 2 L of nasal cannula oxygen with saturations in the mid to low 90s. He states that he has significant dyspnea performing his normal daily activities. He does inquire if there is anything that we can do to help ameliorate some of the pain that he is feeling in his feet secondary to neuropathy. He is already maintained on gabapentin. Exam Physical Exam Vital Signs: Temp Pulse Resp BP Pulse Ox O2 Del Method O2 Flow Rate 98.0 F 99 H 18 127/81 98 Nasal Cannula 2 04/08/22 08:11 04/09/22 12:00 04/09/22 12:00 04/09/22 12:00 04/09/22 12:00 04/09/22 12:00 04/09/22 12:00 FiO2 30 04/08/22 20:00 Narrative: General appearance: No acute distress, alert and oriented x3. On nasal cannula oxygen. Eyes: PERRLA, EOMI. No conjunctival injection, no mucosal pallor. No scleral icterus noted. No nystagmus. HEENT: The external ears and nose appear grossly normal. Cardiovascular: Regular rate and rhythm, no murmurs rubs gallops. Pulses are 2+and symmetric throughout. Neck trachea is midline Respiratory: Clear to auscultation bilaterally, no wheezes rales or rhonchi. Slightly short of breath after speaking in long sentences. Gastrointestinal: Soft, nontender abdomen. Obese. No distention. No rebound, guarding, organomegaly noted. Pickwickian habitus. Neurological exam: Moves all extremities without difficulty. Is slightly decreased sensation to the bottom of his feet bilaterally consistent with his baseline neuropathy. He does have some hyperesthesia over the right spring ligament. Alert and oriented x3. No focal neurological deficits. Musculoskeletal: Grossly normal range of motion all extremities without pain. No obvious crepitus, deformity. No obvious effusion. There is a nonspecific rash to the bottom of his feet. Objective Lab Results CBC & Chem 7: 04/09/22 06:54 04/09/22 06:54 Meds Allergies and Active Meds Allergies metformin Adverse Reaction (Verified 04/02/22 16:29) Flatulence prochlorperazine [From Compazine] Adverse Reaction (Verified 04/02/22 16:29) Flatulence Active Meds: Active Medications Generic Name Dose Route Start Last Admin Trade Name Freq PRN Reason Stop Dose Admin Acetaminophen 1,000 mg 04/04/22 13:09 04/08/22 20:52 Acetaminophen 500 Mg Tablet PO 04/04/23 13:08 1,000 mg Q6H PRN Administration Fever or Pain Albuterol 2 puff 04/02/22 19:34 Albuterol Hfa 60 Puff/8 Gram Inhaler INHALATION 04/02/23 19:33 Q4HR PRN Shortness Of Breath Atorvastatin Calcium 40 mg 04/02/22 22:00 04/08/22 20:53 Atorvastatin 40 Mg Tablet PO 04/02/23 21:59 40 mg HS JOSIANE Administration Guaifenesin/Dextromethorphan 10 ml 04/06/22 12:25 04/08/22 20:53 Guaif/Dextromethorphan Syrup 10 Ml Udc PO 04/06/23 12:24 10 ml Q8H PRN Administration cough Insulin Aspart 0 units 04/02/22 23:15 04/09/22 11:49 Insulin Aspart 300 Units/3 Ml Insuln.Pen SUBCUT 04/02/23 23:14 2 units ACHS JOSIANE Administration Protocol Insulin Detemir 40 units 04/03/22 08:00 04/09/22 08:57 Insulin Detemir 300 Units/3 Ml Insuln.Pen SUBCUT 04/03/23 07:59 40 units DAILY.WITH.BKFAST JOSIANE Administration Isosorbide Mononitrate 30 mg 04/03/22 09:00 04/09/22 08:56 Isosorbide Mononitrate 24hr Er 30 Mg Tab.Er.24h PO 04/03/23 08:59 30 mg DAILY JOSIANE Administration Levothyroxine Sodium 250 mcg 04/04/22 06:30 04/09/22 05:13 Levothyroxine 125 Mcg Tablet PO 04/04/23 06:29 250 mcg DAILY.0630 JOSIANE Administration Liraglutide 0.6 mg 04/04/22 17:00 04/09/22 09:35 Liraglutide 18 Mg/3 Ml Pen.Injctr SUBCUT 04/04/23 16:59 0.6 mg DAILY JOSIANE Administration Lisinopril 40 mg 04/03/22 09:00 04/09/22 08:56 Lisinopril 40 Mg Tablet PO 04/03/23 08:59 40 mg DAILY JOSIANE Administration Multi-Ingredient Mouthwash/Gargle 5 ml 04/07/22 11:19 04/09/22 11:54 Magic Mouthwash With Lidocaine PO 04/07/23 11:18 5 ml Q6H PRN Administration Mouth Sore Pain Ondansetron HCl 4 mg 04/06/22 12:25 04/08/22 11:30 Ondansetron Odt 4 Mg Tab.Rapdis PO 04/06/23 12:24 4 mg Q4HR PRN Administration Nausea And Vomiting Rivaroxaban 10 mg 04/03/22 09:00 04/09/22 08:56 Rivaroxaban 10 Mg Tablet PO 04/03/23 08:59 10 mg DAILY JOSIANE Administration Ropinirole HCl 0.5 mg 04/02/22 23:15 04/08/22 20:53 Ropinirole 0.5 Mg Tablet PO 04/02/23 23:14 0.5 mg DAILY@2000 JOSIANE Administration Sertraline HCl 100 mg 04/02/22 22:00 04/08/22 20:53 Sertraline 100 Mg Tablet PO 04/02/23 21:59 100 mg HS JOSIANE Administration Sodium Chloride 0 ml 04/02/22 16:27 04/07/22 21:57 Sodium Chloride 0.9 % 10 Ml Syringe IV-PUSH 04/02/23 16:26 10 ml PRN PRN Administration Flush A&P - Hospitalist Assessment/Plan (1) Failure to thrive: (2) Morbid obesity due to excess calories: (3) Hypoxemia: (4) Hypergammaglobulinemia: (5) Diabetes mellitus, type 2: (6) Obstructive sleep apnea: (7) Hypothyroidism: Plan Patient is to be discharged home. He has a prescription for nasal cannula oxygen to use at home. He does not feel that he is up to his functional baseline however unfortunately his insurance company will not cover any rehab stay. Patient expresses disappointment in this decision. Patient states that he is still having significant neuropathic pain in his feet with difficulty performing his ADLs. Occupational Therapy and physical therapy both agreed the patient would do well at usp facility. Documented By: Allen Perez DO, TAMMIE 2 1302 Signed By: <Electronically signed by RES Allen Perez> 04/09/22 1308 <Electronically signed by Lupe Hernandez MD> 04/09/22 1531 [facility] Work Phone: Discharge summary Author Luke Moran [facility] April 07, 2022 4:16pm Note Date/Time April 05, 2022 10 :05am [facility] [address] [place] [address] Discharge Summary Signed with Addenda Patient: Stephane Patterson MR#: [id number] : 1955 Acct:[id number] Age/Sex: 66 / M Adm Date: 2 Loc: Room: [address] [place] [address]: Luke Moran MD Copies to: MD Ayden Connolly MD~ ADDENDUM1 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 Patient has been seen in the past by Dr. Clemente Olivarez. Outpatient f/u by hematology service was recommended. 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 He presented to the emergency department with decreased appetite, low energy level, inability to function properly at home. He had been recently hospitalized in our facility for COVID-19 infection and FRANC. Initial evaluation did not clearly show any acute medical illness. Patient was admitted to the hospital for further evaluation. Blood cultures were obtained given history of MSSA endocarditis in 2019. They did not demonstrate any bacterial growth. On account of an abnormal D-dimer, a CTA chest was performed, which did not show any pulmonary emboli. An echocardiogram was unremarkable. LFTs and prior studies had been indicative of cirrhosis, likely secondary to [place]. Studies for hepatitis B and C were obtained and were negative. HBs antibodies are positive consistent with immunity from either infection or immunization. Patient does have a degree of paraproteinemia, which had been evaluated in the past. Studies were repeated, immunofixation pending as of the time of discharge, will be followed as outpatient by his PCP. Patient remained unable to tolerate positive pressure ventilation during sleep. Efforts will be made as outpatient to refit him with another type of mask. A sleep study was ordered. It is of the utmost importance to treat his sleep apnea appropriately in order to prevent development of pulmonary hypertension and other associated complications. He was discharged home in stable condition to a usp facility. Medical therapy was adjusted as noted below. Time Spent with Patient Time spent providing/coordinating discharge services (# min): 35 Diagnostic Studies Completed and Pending Studies Pending studies at discharge: 04/02/22 21:31 Blood Culture Stat 04/03/22 00:50 Immunofixation, (CALLI), Urine Routine 04/03/22 07:34 Free K+L LT Chains, Qn, S IN AM Immunofixation,Serum IN AM Preliminary micro results at discharge 04/02/22 21:31 Blood Culture - Preliminary Blood - Left Arm No Growth 2 Days 04/02/22 19:32 Blood Culture - Preliminary Blood - Left Hand No Growth 2 Days Labs on day of discharge: 04/05/22 06:42: POC Glucose 204 04/04/22 20:33: POC Glucose 277 04/04/22 16:23: POC Glucose 298, POC Glucose Comment Glu2: cleaned meter 04/04/22 10:24: POC Glucose 271 04/03/22 07:34: Free [place] LC, Quant 93.9 H, Free [place] LC, Quant 61.6 H, Free [place]/Lambda Ratio 1.52 Exam Physical Exam Vital Signs: Temp Pulse Resp BP Pulse Ox O2 Del Method O2 Flow Rate 97.9 F 85 20 134/76 90 L Room Air 2 04/05/22 08:00 04/05/22 08:00 04/05/22 08:00 04/05/22 08:00 04/05/22 08:00 04/05/22 08:00 04/05/22 08:00 FiO2 30 04/04/22 22:34 Discharge Plan Discharge Plan Patient Disposition: [facility] Activity: Ambulate as Tolerated Diet: Diabetic and Low-Sodium Additional Instructions: Please have company providing CPAP machine fit the patient with a mask that he can tolerate. Use a CPAP of 8 whenever asleep until the sleep study performed. [facility] Facility to manage care: - Full code - PT/OT eval and treat - Routine vital signs - Oxygen at 2L per nasal cannula, titrate as needed to keep pox > 90% - Maintain CPAP at 8 at HS and prn for naps - Fingerstick blood sugar ACHS - Theraworx protect to bilateral groin and abdominal fold redness. TID and prn Stand Alone Forms: Insulin Corrective Scale #2 Prescriptions: New Victoza 3-Bora 0.6 mg/0.1 mL (18 mg/3 mL) pen injector 1.8 mg subcut DAILY Qty: 9 0RF Rx Instructions: start 0.6 mg sq daily x 1 week then 1.2 mg sq daily x 1 week then 1.8 mg sq daily thereafter insulin aspart U-100 [Novolog Flexpen U-100 Insulin] 100 unit/mL (3 mL) Insulin Pen 0 units subcut ACHS Qty: 0 0RF levothyroxine 125 mcg Tablet 250 mcg PO DAILY.0630 Qty: 0 0RF acetaminophen 500 mg Tablet 1,000 mg PO Q6H PRN (Reason: Fever Or Pain) Qty: 0 0RF Continued sertraline [Zoloft] 100 mg tablet 100 mg PO HS atorvastatin 40 mg Tablet 40 mg PO HS lisinopril 40 mg tablet 40 mg PO DAILY ropinirole 5 mg Tablet 0.5 mg PO QHS Rx Instructions: administer 1-3 hours before bedtime albuterol sulfate 90 mcg/actuation HFA aerosol inhaler 2 puff INHALATION Q4HR PRN (Reason: Shortness Of Breath) Label Comments: INHALE 2 PUFFS BY MOUTH EVERY 4 HOURS NEEDED isosorbide mononitrate 30 mg tablet extended release 24 hr 30 mg PO DAILY Levemir FlexTouch U-100 Insuln 100 unit/mL (3 mL) Insulin Pen 40 unit subcut DAILY.WITH.BKFAST 30 Days Qty: 12 0RF Changed gabapentin 100 mg capsule 200 mg PO TID 30 Days Qty: 0 0RF Label Comments: TAKE 1 (ONE) CAPSULE BY MOUTH TWO TIMES DAILY Discontinued acetaminophen-codeine 300-30 mg tablet 1 tab PO Q6H PRN (Reason: Pain) levothyroxine 200 mcg tablet 200 mcg PO DAILY.0630 triamcinolone acetonide 0.1 % Lotion 1 applic topical BID Qty: 0 0RF hydroxyzine HCl 25 mg tablet 25 mg PO QHS PRN (Reason: Anxiety) clotrimazole 1 % cream 1 applic TOPICAL DAILY PRN (Reason: Dry Skin) nystatin 100,000 unit/mL suspension 100,000 unit PO QHS pioglitazone 30 mg tablet 30 mg PO DAILY (DME) pen needle, diabetic [Pentips] 29 gauge x 1/2 Needle Qty: 150 0RF Rx Instructions: As Directed (DME) Gojji Lancet-Glucose Test Strp 30 gauge Combo Pack Qty: 120 0RF Rx Instructions: As Directed insulin lispro [Humalog KwikPen Insulin] 100 unit/mL Insulin Pen 1 sliding scale dose SUBCUT ACHS Qty: 5 0RF Protocol: Corrective Scale #2 Condition: 150-199 mg/dL Dose/Route: 2 unit Condition: 200-249 mg/dL Dose/Route: 3 unit Condition: 250-299 mg/dL Dose/Route: 5 unit Condition: 300-349 mg/dL Dose/Route: 7 unit Condition: 350-399 mg/dL Dose/Route: 8 unit Condition: greater than or = 400 mg/dL Dose/Route: 9 unit Protocol Text: If the corrective scale dose has been administered within the past 4 hours, do not use corrective scale again unless otherwise directed Rx Instructions: Sliding Scale ACHS Other Ambulatory Orders: DISTRICT SALES REPRESENTATIVE polysom procedure (Routine) Timeframe: 3 Weeks Location: Determined by Patient Ordered By: Luke Moran Follow Up: [facility] [Outside] ([facility] or Central Scheduling will call you to arrange date/time for sleep study. ) Documented By: Luke Moran MD 04/07/22 0924 Signed By: <Electronically signed by Luke Moran MD> 04/07/22 1610 [facility] Work Phone: Evaluation + Plan note No data available for this section [facility] Evaluation note* Diagnosis Onset Date Resolution Status FRANC (acute kidney injury) ac sarbjit Chronic kidney disease, stage III (moderate) acute COVID acute Diabetes acute Hyperglycemia acute Hypertension acute Hyponatremia acute Abrasion of elbow acute CHF (congestive heart failure) acute Diabetes mellitus, type 2 ac sarbjit Failure to thrive acute Fall acute Hypergammaglobulinemia acute Hypothyroidism acute Hypoxemia acute Morbid obesity due to excess calories acute Obstructive sleep apnea acut e Unable to care for self acut e [facility] Work Phone: Evaluation note* Diagnosis Hypotension, unspecified hypotension type- Primary Fall, initial encounter Refusal of treatment Surgical or other procedure not carried out because of patient's decision documented in this encounter [facility] Work Phone: Hospital Discharge instructions No data available for this section [facility] Hospital Discharge instructionsAmbulatory Orders* Initiate Home Health Time Frame: 04/09/22, Location: Determined By Patient Additional Instructions Please wear home oxygen at 2l at all times. HOME HEALTH TO MANAGE: Nursing/PT/OT/Aide/Power Plant Installer to eval and treat Monitor VS per protocol Maintain home oxygen at 2l continuous *Oxygen therapy is new, educate patient on Monitor Respiratory assessment Assist with medication management and provide medication education Assist with glucose control Skin care TID: *Theraworx protect to bilateral groin and abdominal fold redness. *Educate patient on Provide education on high risk fall precautions [facility] Work Phone: Hospital Discharge instructions Additional Instructions If your symptoms return/worsen or you develop any further concerns or symptoms please see your doctor or return to the emergency department immediately.[facility] Work Phone: Progress note No data available for this section [facility] Progress note Author Sarah Osuna [facility] March 16, 2022 12:40pm Note Date/Time March 16, 2022 12: 36pm [facility] [address] [place] [address] Nephrology Progress Note Signed Patient: Stephane Patterson MR#: [id number] : 1955 Acct:[id number] Age/Sex: 66 / M Adm Date: 2 Loc: 3T Room: [address] [place] [address] Type: ADM IN Attending Dr: Xin Phan MD Copies to: ~ Date of Service: 03/16/2022 Subjective Subjective Narrative: This is 66-year-old male patient with a past medical history of morbid obesity, endocarditis, paroxysmal A. fib, diabetes type 2, anxiety and depression and chronic kidney disease stage III. Patient presented to [facility] with feeling weak and disoriented for 2 weeks which has gotten worse. Patient has been having cough with decreased appetite and loss of taste for a week. Lab at [facility] shows acute kidney injury with creatinine up to 4.3 mg/dL along with hyperglycemia with initial blood glucose level more than 400. Patient's blood pressure was in the 80s at [facility]. Patient was given IV fluid and transferred to our hospital where he was admitted. Patient tested positive for COVID 19. Currently on 2 L nasal cannula. He is only on dexamethasone for COVID-19 Renal team is consulted for acute kidney injury on chronic kidney disease. I reviewed the patient medications he is on lisinopril hydrochlorothiazide and isosorbide mononitrate for hypertension management. Patient also taking Celebrex for pain 200 mg at at bedtime. Home lisinopril was stopped at admission. Patient currently in normal saline 100 cc/h. Patient is a mentioned above on dexamethasone. He is also on insulin for diabetes control Patient was seen and examined in his room. On nasal cannula 2 L. Denied nauseavomiting or worsening breathing. No chest pain Denies urinary obstructive symptoms. No hematuria. No skin rash Interval history: Patient was seen and examined in his room. He is on room air today. Awake alert oriented. Denied worsening breathing. No cough. No chest pain. No nausea no vomiting. He is eating well Has a trace edema of lower extremities Exam Physical Exam Vital Signs: Temp Pulse Resp BP Pulse Ox O2 Del Method O2 Flow Rate 97.8 F 95 H 18 147/90 H 95 Room Air 1 03/16/22 08:07 03/16/22 11:59 03/16/22 11:59 03/16/22 11:59 03/16/22 11:59 03/16/22 11:59 03/14/22 16:00 Narrative: General: No acute distress. Morbidly obese patient Psychiatry: Patient is cooperative. Calm no agitation Head :atraumatic normocephalic Eyes: PERRLA. Neck: Thick neck Heart: S1-S2. RRR Respiratory: Clear to auscultation. No wheezing. No crackles Abdomen: Soft, positive bowel sounds,no tenderness. Neurology: Awake alert oriented x3. No focal deficits Extremity. No cyanosis. No edema Skin: No skin rash Objective Intake and Output I&O: Intake & Output 03/13/22 03/14/22 03/15/22 03/16/22 23:59 23:59 23:59 23:59 Intake Total 2150 / 2150 3450 / 3450 450 / 450 Output Total 975 / 975 1650 / 1650 Balance 1175 / 1175 1800 / 1800 450 / 450 Weight 162 kg 162 kg 163.5 kg Meds and Allergies Meds: Active Medications Acetaminophen (Acetaminophen 325 Mg Tablet) 650 mg PO Q4H PRN PRN Reason: Pain Scale 1 - 5 Stop: 03/14/23 03:09 Last Admin: 03/14/22 20:48 Dose: 650 mg Amlodipine Besylate (Amlodipine 5 Mg Tablet) 5 mg PO DAILY JOSIANE Stop: 03/15/23 15:59 Last Admin: 03/16/22 08:08 Dose: 5 mg Ascorbic Acid (Ascorbic Acid 500 Mg Tablet) 500 mg PO DAILY JOSIANE Stop: 03/14/23 08:59 Last Admin: 03/16/22 08:08 Dose: 500 mg Dexamethasone 2 mg/ (Dexamethasone 4 mg) 6 mg PO DAILY JOSIANE Stop: 03/22/23 08:59 Last Admin: 03/16/22 08:08 Dose: 6 mg Dextrose (Dextrose 50% In Water 25 Gm/50 Ml Syringe) 0 gm IV-PUSH PRN PRN PRN Reason: Hypoglycemia Stop: 03/14/23 03:03 Glucose (Dextrose 40% Gel 15 Gm Tube) 0 gm PO PRN PRN PRN Reason: Hypoglycemia Stop: 03/14/23 03:03 Guaifenesin (Guaifenesin 600 Mg Tab.Er.12h) 600 mg PO BID PRN PRN Reason: Congestion Stop: 03/14/23 03:09 Last Admin: 03/14/22 20:48 Dose: 600 mg Heparin Sodium (Porcine) (Heparin 5,000 Unit/Ml Vial) 5,000 unit SUBCUT Q12HR [facility] Stop: 03/14/23 08:59 Last Admin: 03/16/22 08:09 Dose: Not Given Insulin Aspart (Insulin Aspart 300 Units/3 Ml Insuln.Pen) 0 units SUBCUT TID.WM.HS [facility]; Protocol Stop: 03/14/23 07:59 Last Admin: 03/16/22 11:57 Dose: 8 units Insulin Detemir (Insulin Detemir 300 Units/3 Ml Insuln.Pen) 40 units SUBCUT DAILY.WITH.BKFAST [facility] Stop: 03/16/23 07:59 Last Admin: 03/16/22 08:10 Dose: 40 units Zinc Sulfate (Zinc Sulfate 220 Mg Capsule) 220 mg PO DAILY [facility] Stop: 03/14/23 08:59 Last Admin: 03/16/22 08:08 Dose: 220 mg Allergies metformin Adverse Reaction (Verified 03/14/22 03:15) Flatulence prochlorperazine [From Compazine] Adverse Reaction (Verified 03/14/22 03:15) Flatulence Results Labs CBC & Chem 7: 03/14/22 02:01 03/16/22 09:15 Labs: 03/16/22 03/16/22 07:17 09:15 BUN 24 H Creatinine 1.27 Phosphorus 2.0 L Albumin 1.9 L Radiology Impressions Impressions - last 24 hours: Any impression(s) listed above is documentation that was entered by the reading physician into a diagnostic report(s) for Stephane Patterson. I have reviewed the report(s) and am incorporating any findings in the treatment plan of this patient where applicable. A&P - Nephrology Assessment/Plan (1) FRANC (acute kidney injury): Assessment/Problem Details: Acute kidney injury is likely prerenal likely related to hypotension along with poor oral intake and osmotic diuresis from hyperglycemia. Sodium fraction excretion 0.3%. Creatinine peaked at 4.3 mg/dL. Serum creatinine last year was1.7 mg/dL. Patient could have component of CKD progression (2) Chronic kidney disease, stage III (moderate): Assessment/Problem Details: Patient has CKD stage III likely from diabetic nephropathy UA showed no proteinuria. Protein to creatinine ratio was 69 mg/g (3) Hypertension: Assessment/Problem Details: Patient presented with low blood pressure likely related to poor oral intake andbeing on multiple blood pressure at at home. (4) Diabetes: Assessment/Problem Details: Patient presented with initial blood glucose level more than 400. Patient also on dexamethasone for COVID which is likely contributing to hyperglycemia. Patient is on insulin to control blood glucose level as directed by the primary service (5) COVID: Assessment/Problem Details: Patient tested positive for COVID-19 virus. He was slightly hypoxic. On nasal cannula 2 L/min. Only on dexamethasone. He is not candidate for remdesivir dueto FRANC (6) Hyponatremia: Assessment/Problem Details: Likely from hyperglycemia. Mild and asymptomatic Plan - Serum creatinine peaked at 4.3 mg deciliter. Sodium fraction excretion was below 1% indicating prerenal injury likely from low blood pressure, poor oral intake, and hyperglycemia osmotic diuresis. -Serum creatinine this morning 1.2 mg deciliter deciliter which is likely his baseline. IV fluid was stopped yesterday -Might resume home blood pressure medications -Keep mean arterial pressure more than 65 to maintain renal perfusion. -On dexamethasone for COVID 19 viral infection treatment as directed by the primary service -Sodium level improved with better blood glucose level. Keep blood glucose level below 200 -Hemoglobin A1c 13%. I explained to the patient the necessity of controlling diabetes to attenuate worsening kidney function. Patient currently in insulin as directed by the primary service -Please avoid NSAIDs. Please DC Celebrex at discharge. Is okay to discharge patient from nephrology standpoint. Please resume home previous blood pressure medications isosorbide mononitrate and lisinopril at discharge . Amlodipine can be stopped Call if any question Documented By: Sarah Osuna MD 03/16/22 1234 Signed By: <Electronically signed by Sarah Osuna MD> 03/16/22 1240 [facility] Work Phone: Progress note Author Luke Morna [facility] April 03, 2022 2:05pm Note Date/Time April 03, 2022 2: 05pm [facility] [address] [place] [address] Hospitalist Progress Note Signed Patient: Stephane Patterson MR#: [id number] : 1955 Acct:[id number] Age/Sex: 66 / M Adm Date: 08/23/2 2 Loc: 3T Room: 7U5022-9 Type: ADM INOo Attending Dr: Luke Moran MD Copies to: ~ Date of Service: 04/03/2022 Subjective Subjective Narrative: Patient is feeling better today. His oxygen requirements have decreased to 2 L/min. On examination he is resting comfortably in bed. He is in no distress. Diminished breath sounds bilaterally, no audible wheezes or crackles Heart very diminished, no gallop JVD could be appreciated due to body habitus Abdomen is obese otherwise unremarkable Neurological nonfocal Assessment and plan 1.Failure to thrive, decreased energy, rule out recurrent bacteremia. Patient does have a history ofMSSA endocarditis in 2019. Blood cultures repeated, still no growth. #2 hypoxia. Recent COVID-[address] chest negative for PE. Echo pending Continue diuretic therapy IV Lasix. #3 Abnormal bilirubin, imaging suggestive of cirrhosis in the past. Likely secondary to [place], but I see no serological studies for hepatitis B and C, will obtain. #4 paraproteinemia. Patient has an elevation in free light chains of unclear significance, immunofixation was not certain, will repeat. 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 Cirrhosis likely secondary to [place] Diabetes mellitus type 2 Anxiety disorder Hypertension Atrial fibrillation Exam Physical Exam Vital Signs: Temp Pulse Resp BP Pulse Ox O2 Del Method O2 Flow Rate 98.2 F 84 24 99/58 L 93 L Nasal Cannula 2 04/03/22 08:00 04/03/22 12:00 04/03/22 12:00 04/03/22 12:00 04/03/22 12:00 04/03/22 12:00 04/03/22 12:00 Objective Lab Results CBC & Chem 7: 04/02/22 17:51 04/02/22 17:51 Microbiology Results Microbiology 04/02/22 17:28 Nasal SARS Antigen (LFIA) - Final Meds Allergies and Active Meds Allergies metformin Adverse Reaction (Verified 04/02/22 16:29) Flatulence prochlorperazine [From Compazine] Adverse Reaction (Verified 04/02/22 16:29) Flatulence Active Meds: Active Medications Generic Name Dose Route Start Last Admin Trade Name Freq PRN Reason Stop Dose Admin Hydrocodone Bitart/Acetaminophen 1 tab 04/02/22 22:56 04/02/22 23:25 Hydrocodone/Acetaminophen 5-325 Mg Tablet PO 1 tab Q12HR PRN Administration Pain Hydrocodone Bitart/Acetaminophen 2 tab 04/03/22 13:02 Hydrocodone/Acetaminophen 5-325 Mg Tablet PO BID PRN Severe Pain Albuterol 2 puff 04/02/22 19:34 Albuterol Hfa 60 Puff/8 Gram Inhaler INHALATION 04/02/23 19:33 Q4HR PRN Shortness Of Breath Atorvastatin Calcium 40 mg 04/02/22 22:00 04/02/22 23:25 Atorvastatin 40 Mg Tablet PO 04/02/23 21:59 40 mg HS JOSIANE Administration Furosemide 40 mg 04/03/22 12:20 04/03/22 13:29 Furosemide 40 Mg/4 Ml Vial IV-PUSH 04/03/23 12:19 40 mg BID@0800,1600 JOSIANE Administration Gabapentin 100 mg 04/02/22 21:00 04/03/22 08:32 Gabapentin 100 Mg Capsule PO 04/02/23 20:59 100 mg BID JOSIANE Administration Hydroxyzine Pamoate 25 mg 04/02/22 23:00 04/02/22 23:25 Hydroxyzine Pamoate 25 Mg Capsule PO 04/02/23 22:59 25 mg HS JOSIANE Administration Insulin Aspart 0 units 04/02/22 23:15 04/03/22 12:16 Insulin Aspart 300 Units/3 Ml Insuln.Pen SUBCUT 04/02/23 23:14 3 units ACHS JOSIANE Administration Protocol Insulin Detemir 40 units 04/03/22 08:00 04/03/22 08:34 Insulin Detemir 300 Units/3 Ml Insuln.Pen SUBCUT 04/03/23 07:59 40 units DAILY.WITH.BKFAST JOSIANE Administration Isosorbide Mononitrate 30 mg 04/03/22 09:00 04/03/22 08:32 Isosorbide Mononitrate 24hr Er 30 Mg Tab.Er.24h PO 04/03/23 08:59 30 mg DAILY JOSIANE Administration Lisinopril 40 mg 04/03/22 09:00 04/03/22 08:32 Lisinopril 40 Mg Tablet PO 04/03/23 08:59 40 mg DAILY JOSIANE Administration Rivaroxaban 10 mg 04/03/22 09:00 04/03/22 08:32 Rivaroxaban 10 Mg Tablet PO 04/03/23 08:59 10 mg DAILY JOSIANE Administration Ropinirole HCl 0.5 mg 04/02/22 23:15 04/02/22 23:25 Ropinirole 0.5 Mg Tablet PO 04/02/23 23:14 0.5 mg DAILY@2000 JOSIANE Administration Sertraline HCl 100 mg 04/02/22 22:00 04/02/22 23:25 Sertraline 100 Mg Tablet PO 04/02/23 21:59 100 mg HS JOSIANE Administration Sodium Chloride 0 ml 04/02/22 16:27 04/02/22 18:56 Sodium Chloride 0.9 % 10 Ml Syringe IV-PUSH 04/02/23 16:26 10 ml PRN PRN Administration Flush Documented By: Luke Moran MD 04/03/22 1404 Signed By: <Electronically signed by Luke Moran MD> 04/03/22 1405 [facility] Work Phone: Progress note Author Luke Moran [facility] April 04, 2022 4:25pm Note Date/Time April 04, 2022 4: 25pm [facility] [address] [place] [address] Hospitalist Progress Note Signed Patient: Stephane Patterson MR#: [id number] : 1955 Acct:[id number] Age/Sex: 66 / M Adm Date: 2 Loc: Room: [address] [place] [address] Type: ADM INOo Attending Dr: Luke Moran MD Copies to: ~ Date of Service: 04/04/2022 Subjective Subjective Narrative: Patient was somewhat lethargic and less arousable in the morning. At the time of my examination he has no complaints. He is awake alert with normal cognitivefunction. Diminished sounds present bilaterally, no wheezing Heart very diminished, no gallop JVD could be appreciated due to body habitus Abdomen is obese otherwise unremarkable Neurological nonfocal Assessment and plan 1. Failure to thrive, decreased energy, rule out recurrent bacteremia. Patient does have a history ofMSSA endocarditis in 2019. Blood cultures no growth. #2 hypoxia. Recent COVID-[address] chest negative for PE. LV hyperdynamic, normal ejection fraction. DC Lasix therapy. #3 Abnormal bilirubin, imaging suggestive of cirrhosis in the past. Likely secondary to [place] Viral serological studies negative #4 paraproteinemia. Patient has an elevation in free light chains of unclear significance, immunofixation was not certain, repeated and currently pending. 5. Severe sleep apnea. I believe I convinced him to try again CPAP at night and whenever asleep. 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 Cirrhosis likely secondary to [place] Diabetes mellitus type 2 Anxiety disorder Hypertension Atrial fibrillation Exam Physical Exam Vital Signs: Temp Pulse Resp BP Pulse Ox O2 Del Method O2 Flow Rate 98.1 F 68 20 101/63 92 L Nasal Cannula 2 04/04/22 11:05 04/04/22 11:05 04/04/22 11:05 04/04/22 11:05 04/04/22 11:05 04/04/22 11:05 04/04/22 11:05 Objective Lab Results CBC & Chem 7: 04/02/22 17:51 04/02/22 17:51 Microbiology Results Microbiology 04/02/22 21:31 Blood - Left Arm Blood Culture - Preliminary No Growth 1 Day 04/02/22 19:32 Blood - Left Hand Blood Culture - Preliminary No Growth 1 Day ABG Interpretation ABG results: 04/04/22 09:31 ABG pH 7.43 ABG pCO2 43.2 ABG pO2 61.4 L ABG HCO3 28.1 ABG Total CO2 29.4 H ABG O2 Saturation 92.1 L ABG O2 Content 6.4 L ABG Base Excess 3.4 H Meds Allergies and Active Meds Allergies metformin Adverse Reaction (Verified 04/02/22 16:29) Flatulence prochlorperazine [From Compazine] Adverse Reaction (Verified 04/02/22 16:29) Flatulence Active Meds: Active Medications Generic Name Dose Route Start Last Admin Trade Name Freq PRN Reason Stop Dose Admin Acetaminophen 1,000 mg 04/04/22 13:09 Acetaminophen 500 Mg Tablet PO 04/04/23 13:08 Q6H PRN Fever or Pain Albuterol 2 puff 04/02/22 19:34 Albuterol Hfa 60 Puff/8 Gram Inhaler INHALATION 04/02/23 19:33 Q4HR PRN Shortness Of Breath Atorvastatin Calcium 40 mg 04/02/22 22:00 04/03/22 21:17 Atorvastatin 40 Mg Tablet PO 04/02/23 21:59 40 mg HS JOSIANE Administration Insulin Aspart 0 units 04/02/22 23:15 04/04/22 12:00 Insulin Aspart 300 Units/3 Ml Insuln.Pen SUBCUT 04/02/23 23:14 5 units ACHS JOSIANE Administration Protocol Insulin Detemir 40 units 04/03/22 08:00 04/04/22 09:12 Insulin Detemir 300 Units/3 Ml Insuln.Pen SUBCUT 04/03/23 07:59 40 units DAILY.WITH.BKFAST JOSIANE Administration Isosorbide Mononitrate 30 mg 04/03/22 09:00 04/04/22 09:11 Isosorbide Mononitrate 24hr Er 30 Mg Tab.Er.24h PO 04/03/23 08:59 30 mg DAILY JOSIANE Administration Levothyroxine Sodium 250 mcg 04/04/22 06:30 04/04/22 05:32 Levothyroxine 125 Mcg Tablet PO 04/04/23 06:29 250 mcg DAILY.0630 JOSIANE Administration Lisinopril 40 mg 04/03/22 09:00 04/04/22 09:11 Lisinopril 40 Mg Tablet PO 04/03/23 08:59 40 mg DAILY JOSIANE Administration Rivaroxaban 10 mg 04/03/22 09:00 04/04/22 09:11 Rivaroxaban 10 Mg Tablet PO 04/03/23 08:59 10 mg DAILY JOSIANE Administration Ropinirole HCl 0.5 mg 04/02/22 23:15 04/03/22 21:17 Ropinirole 0.5 Mg Tablet PO 04/02/23 23:14 0.5 mg DAILY@2000 JOSIANE Administration Sertraline HCl 100 mg 04/02/22 22:00 04/03/22 21:17 Sertraline 100 Mg Tablet PO 04/02/23 21:59 100 mg HS JOSIANE Administration Sodium Chloride 0 ml 04/02/22 16:27 04/02/22 18:56 Sodium Chloride 0.9 % 10 Ml Syringe IV-PUSH 04/02/23 16:26 10 ml PRN PRN Administration Flush Documented By: Luke Moran MD 04/04/22 3995 Signed By: <Electronically signed by Luke Moran MD> 04/04/22 1625 [facility] Work Phone: Progress note Author Luke Moran [facility] April 06, 2022 2:50pm Note Date/Time April 06, 2022 2: 50pm [facility] [address] [place] [address] Hospitalist Progress Note Signed Patient: Stephane Patterson MR#: [id number] : 1955 Acct:[id number] Age/Sex: 66 / M Adm Date: 2 Loc: Room: [address] [place] [address] Type: ADM INOo Attending Dr: Luke Moran MD Copies to: ~ Date of Service: 04/06/2022 Subjective Subjective Narrative: Patient is feeling well. He is having a shower now. No complaints apart from amild nonproductive cough. Awake alert oriented with no focal deficit 1. Failure to thrive, decreased energy, bacteremia was ruled out given his priorhistory of MSSA endocarditis in 2019. #2 hypoxia. Recent COVID-[address] chest negative for PE. LV hyperdynamic, normal ejection fraction. Robitussin DM as needed for cough #3 Abnormal bilirubin, imaging suggestive of cirrhosis in the past. Likely secondary to [place] Viral serological studies negative #4 paraproteinemia. Nonspecific, immunofixation showed no monoclonal gammopathy. 5. Severe sleep apnea. I believe I convinced him to try again CPAP at night and whenever asleep. We will try to fit him with an appropriate mask in the outpatient setting. 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 Cirrhosis likely secondary to [place] Diabetes mellitus type 2 Anxiety disorder Hypertension Atrial fibrillation Exam Physical Exam Vital Signs: Temp Pulse Resp BP Pulse Ox O2 Del Method O2 Flow Rate 98.3 F 98 H 20 132/85 97 Nasal Cannula 2 04/06/22 07:31 04/06/22 10:35 04/06/22 10:35 04/06/22 10:35 04/06/22 10:35 04/06/22 10:35 04/06/22 10:35 FiO2 30 04/04/22 22:34 Objective Lab Results CBC & Chem 7: 04/02/22 17:51 04/02/22 17:51 Microbiology Results Microbiology 04/02/22 21:31 Blood - Left Arm Blood Culture - Preliminary No Growth 3 Days 04/02/22 19:32 Blood - Left Hand Blood Culture - Preliminary No Growth 3 Days Meds Allergies and Active Meds Allergies metformin Adverse Reaction (Verified 04/02/22 16:29) Flatulence prochlorperazine [From Compazine] Adverse Reaction (Verified 04/02/22 16:29) Flatulence Active Meds: Active Medications Generic Name Dose Route Start Last Admin Trade Name Freq PRN Reason Stop Dose Admin Acetaminophen 1,000 mg 04/04/22 13:09 04/06/22 10:34 Acetaminophen 500 Mg Tablet PO 04/04/23 13:08 1,000 mg Q6H PRN Administration Fever or Pain Albuterol 2 puff 04/02/22 19:34 Albuterol Hfa 60 Puff/8 Gram Inhaler INHALATION 04/02/23 19:33 Q4HR PRN Shortness Of Breath Atorvastatin Calcium 40 mg 04/02/22 22:00 04/05/22 21:47 Atorvastatin 40 Mg Tablet PO 04/02/23 21:59 40 mg HS JOSIANE Administration Guaifenesin/Dextromethorphan 10 ml 04/06/22 12:25 04/06/22 13:13 Guaif/Dextromethorphan Syrup 10 Ml Udc PO 04/06/23 12:24 10 ml Q8H PRN Administration cough Insulin Aspart 0 units 04/02/22 23:15 04/06/22 11:39 Insulin Aspart 300 Units/3 Ml Insuln.Pen SUBCUT 04/02/23 23:14 3 units ACHS JOSIANE Administration Protocol Insulin Detemir 40 units 04/03/22 08:00 04/06/22 08:22 Insulin Detemir 300 Units/3 Ml Insuln.Pen SUBCUT 04/03/23 07:59 40 units DAILY.WITH.BKFAST JOSIANE Administration Isosorbide Mononitrate 30 mg 04/03/22 09:00 04/06/22 08:23 Isosorbide Mononitrate 24hr Er 30 Mg Tab.Er.24h PO 04/03/23 08:59 30 mg DAILY JOSIANE Administration Levothyroxine Sodium 250 mcg 04/04/22 06:30 04/06/22 05:40 Levothyroxine 125 Mcg Tablet PO 04/04/23 06:29 250 mcg DAILY.0630 JOSIANE Administration Liraglutide 0.6 mg 04/04/22 17:00 04/06/22 08:23 Liraglutide 18 Mg/3 Ml Pen.Injctr SUBCUT 04/04/23 16:59 0.6 mg DAILY JOSIANE Administration Lisinopril 40 mg 04/03/22 09:00 04/06/22 08:23 Lisinopril 40 Mg Tablet PO 04/03/23 08:59 40 mg DAILY JOSIANE Administration Ondansetron HCl 4 mg 04/06/22 12:25 04/06/22 13:13 Ondansetron Odt 4 Mg Tab.Rapdis PO 04/06/23 12:24 4 mg Q4HR PRN Administration Nausea And Vomiting Rivaroxaban 10 mg 04/03/22 09:00 04/06/22 08:24 Rivaroxaban 10 Mg Tablet PO 04/03/23 08:59 10 mg DAILY JOSIANE Administration Ropinirole HCl 0.5 mg 04/02/22 23:15 04/05/22 20:17 Ropinirole 0.5 Mg Tablet PO 04/02/23 23:14 0.5 mg DAILY@2000 JOSIANE Administration Sertraline HCl 100 mg 04/02/22 22:00 04/05/22 21:47 Sertraline 100 Mg Tablet PO 04/02/23 21:59 100 mg HS JOSIANE Administration Sodium Chloride 0 ml 04/02/22 16:27 04/02/22 18:56 Sodium Chloride 0.9 % 10 Ml Syringe IV-PUSH 04/02/23 16:26 10 ml PRN PRN Administration Flush Documented By: Luke Moran MD 04/06/22 1448 Signed By: <Electronically signed by Luke Moran MD> 04/06/22 5950 [facility] Work Phone: Progress note Author Lupe Hernandez [facility] April 08, 2022 1:38pm Note Date/Time April 08, 2022 1: 38pm [facility] [address] [place] [address] Hospitalist Progress Note Signed Patient: Stephane Patterson MR#: [id number] : 1955 Acct:[id number] Age/Sex: 66 / M Adm Date: 2 Loc: 3T Room: [address] [place] [address] Type: ADM INOo Attending Dr: Lupe Hernandez MD Copies to: ~ Date of Service: 04/08/2022 Subjective Subjective Narrative: Patient examined at bedside and mentioned not sleeping well last night and complaining of nausea. He took his oxygen off as it was bothering him with pulse ox of 89%. He was placed back on 2 and half liter oxygen. He is not using CPAP at night. Currently in normal sinus rhythm with no arrhythmia noted. Exam Physical Exam Vital Signs: Temp Pulse Resp BP Pulse Ox O2 Del Method O2 Flow Rate 98.0 F 93 H 20 132/80 95 Nasal Cannula 2 04/08/22 08:11 04/08/22 08:11 04/08/22 08:11 04/08/22 08:11 04/08/22 08:11 04/08/22 08:11 04/08/22 08:11 FiO2 30 04/06/22 16:00 Const Nutritional Appearance: obese Orientation: alert, awake and oriented x3 Resp Effort & Inspection: normal respiratory effort and able to speak in complete sentences Auscultation: diminished lung sounds, no rales, no rhonchi and no wheezes Cardio Rate: regular rate Rhythm: regular rhythm Heart Sounds: S1 normal and S2 normal GI Palpation: soft, not firm, no guarding and nontender Auscultation: normal bowel sounds Neuro General: patient alert, patient awake, patient oriented x3, moves all extremities and no focal motor deficits Objective Lab Results CBC & Chem 7: 04/02/22 17:51 04/02/22 17:51 Microbiology Results Microbiology 04/02/22 21:31 Blood - Left Arm Blood Culture - Final NO GROWTH 5 DAYS 04/02/22 19:32 Blood - Left Hand Blood Culture - Final NO GROWTH 5 DAYS Meds Allergies and Active Meds Allergies metformin Adverse Reaction (Verified 04/02/22 16:29) Flatulence prochlorperazine [From Compazine] Adverse Reaction (Verified 04/02/22 16:29) Flatulence Active Meds: Active Medications Generic Name Dose Route Start Last Admin Trade Name Freq PRN Reason Stop Dose Admin Acetaminophen 1,000 mg 04/04/22 13:09 04/07/22 17:00 Acetaminophen 500 Mg Tablet PO 04/04/23 13:08 1,000 mg Q6H PRN Administration Fever or Pain Albuterol 2 puff 04/02/22 19:34 Albuterol Hfa 60 Puff/8 Gram Inhaler INHALATION 04/02/23 19:33 Q4HR PRN Shortness Of Breath Atorvastatin Calcium 40 mg 04/02/22 22:00 04/07/22 21:54 Atorvastatin 40 Mg Tablet PO 04/02/23 21:59 40 mg HS JOSIANE Administration Guaifenesin/Dextromethorphan 10 ml 04/06/22 12:25 04/07/22 05:38 Guaif/Dextromethorphan Syrup 10 Ml Udc PO 04/06/23 12:24 10 ml Q8H PRN Administration cough Insulin Aspart 0 units 04/02/22 23:15 04/08/22 11:31 Insulin Aspart 300 Units/3 Ml Insuln.Pen SUBCUT 04/02/23 23:14 2 units ACHS JOSIANE Administration Protocol Insulin Detemir 40 units 04/03/22 08:00 04/08/22 08:26 Insulin Detemir 300 Units/3 Ml Insuln.Pen SUBCUT 04/03/23 07:59 40 units DAILY.WITH.BKFAST JOSIANE Administration Isosorbide Mononitrate 30 mg 04/03/22 09:00 04/08/22 08:20 Isosorbide Mononitrate 24hr Er 30 Mg Tab.Er.24h PO 04/03/23 08:59 30 mg DAILY JOSIANE Administration Levothyroxine Sodium 250 mcg 04/04/22 06:30 04/08/22 06:19 Levothyroxine 125 Mcg Tablet PO 04/04/23 06:29 250 mcg DAILY.0630 JOSIANE Administration Liraglutide 0.6 mg 04/04/22 17:00 04/08/22 08:25 Liraglutide 18 Mg/3 Ml Pen.Injctr SUBCUT 04/04/23 16:59 0.6 mg DAILY JOSIANE Administration Lisinopril 40 mg 04/03/22 09:00 04/08/22 08:25 Lisinopril 40 Mg Tablet PO 04/03/23 08:59 40 mg DAILY JOSIANE Administration Multi-Ingredient Mouthwash/Gargle 5 ml 04/07/22 11:19 04/08/22 11:30 Magic Mouthwash With Lidocaine PO 04/07/23 11:18 5 ml Q6H PRN Administration Mouth Sore Pain Ondansetron HCl 4 mg 04/06/22 12:25 04/08/22 11:30 Ondansetron Odt 4 Mg Tab.Rapdis PO 04/06/23 12:24 4 mg Q4HR PRN Administration Nausea And Vomiting Rivaroxaban 10 mg 04/03/22 09:00 04/08/22 08:20 Rivaroxaban 10 Mg Tablet PO 04/03/23 08:59 10 mg DAILY JOSIANE Administration Ropinirole HCl 0.5 mg 04/02/22 23:15 04/07/22 21:54 Ropinirole 0.5 Mg Tablet PO 04/02/23 23:14 0.5 mg DAILY@1999 JOSIANE Administration Sertraline HCl 100 mg 04/02/22 22:00 04/07/22 21:54 Sertraline 100 Mg Tablet PO 04/02/23 21:59 100 mg HS JOSIANE Administration Sodium Chloride 0 ml 04/02/22 16:27 04/07/22 21:57 Sodium Chloride 0.9 % 10 Ml Syringe IV-PUSH 04/02/23 16:26 10 ml PRN PRN Administration Flush A&P - Hospitalist Assessment/Plan (1) Failure to thrive: (2) Morbid obesity due to excess calories: (3) Hypoxemia: (4) Hypergammaglobulinemia: (5) Diabetes mellitus, type 2: (6) Obstructive sleep apnea: (7) Hypothyroidism: Plan [facility] currently [facility] Remains in normal sinus rhythm. He has not been able to tolerate CPAP. He will benefit from sleep study as an outpatient. Dose of levothyroxine has been increased dueto elevated TSH. Patient will require outpatient hematology/oncology consultation regarding gammopathy. Continue basal insulin sliding scale coverage. Continue lisinopril, sertraline, ropinirole Xarelto for DVT prophylaxis Documented By: Lupe Hernandez MD 04/08/22 1338 Signed By: <Electronically signed by Lupe Hernandez MD> 04/08/22 0203 [facility] Work Phone: Chief Complaint and Reason for Visit Chief Complaint covid +,franc,hypergly cemia fall Reason for Visit FRANC (acute kidney in jury) Chronic kidney disease, stage III (moderate) COVID Diabetes Hyperglycemia Hypertension Hyponatremia Abrasion of elbow CHF (congestive heart failure) Diabetes mellitus, type 2 Failure to thrive Fall Hypergammaglobulinemia Hypothyroidism Hypoxemia Morbid obesity due to excess calories Obstructive sleep apnea Unable to care for self Chief Complaint covid +,franc,hypergly cemia fall weakness Reason for Visit FRANC (acute kidney in jury) Chronic kidney disease, stage III (moderate) COVID Diabetes Hyperglycemia Hypertension Hyponatremia Abrasion of elbow CHF (congestive heart failure) Diabetes mellitus, type 2 Failure to thrive Fall Hypergammaglobulinemia Hypothyroidism Hypoxemia Morbid obesity due to excess calories Obstructive sleep apnea Unable to care for self Advance Directives No Advanced Directives Records Found Advance Directive Response Recorded Date/ Time Advance Directives No September 05, 2020 8:27am Summary Purpose Family History No Family History Records Found Additional Source Comments Care Team (unrecognized sect ion and content) Team Status: Inactive Member Role Status Dates Ayden Freeman MD Primary Care Provider Active Mary Jane Hanna MD Admit Provider Active Sarah Osuna MD Other Provider Active Xin Phan MD Attending Provider Active Team Status: Inactive Member Role Status Dates Ayden Freeman MD Primary Care Provider Active Jair Gabriel DO Emergency Provider Active Luke Moran MD Admit Provider Active Lupe Hernandez MD Attending Provider Active Team Status: Active Member Role Status Dates Ayden Freeman MD Primary Care Provider Active Team Status: Inactive Member Role Status Dates Ramesh Byrd DO Emergency Provider Active Ayden Freeman MD Primary Care Provider Active (unrecognized sect ion and content) No Status Records FoundNo Status Records FoundNo Status Records Found INFORMATION SOURCE (unrecogn ized section and content) DATE CREATED AUTHOR 05/08/2022 [facility] DATE CREATED AUTHOR AUTHOR'S ORGANIZ ATION 12/23/2022 [facility] DATE CREATED AUTHOR AUTHOR'S ORGANIZ ATION 04/12/2023 [facility] Reason for Visit (unrecogniz ed section and content) Reason Comments Fall Goals (unrecognized section and content) Goals may be documented in a n alternate section FOR RECORDS PERTAINING TO PATIENTS WHO ARE OR HAVE BEEN ENROLLED IN A CHEMICAL DEPENDENCY/SUBSTANCEABUSE PROGRAM, SOME INFORMATION MAY BE OMITTED. This clinical summary was aggregated from multiple sources. Caution should be exercised in using it in the provision of clinical care. This summary normalizes information from multiple sources, and as a consequence, information in this document may materially change the coding, format and clinical context of patient data. In addition, data may be omitted in some cases. CLINICAL DECISIONS SHOULD BE BASED ON THE PRIMARY CLINICAL RECORDS. [facility] provides no warranty or guarantee of the accuracy or completeness of information in this document.
== END 2023-07-20 12:30 | disposition home or self-care (01) | DRG 193 ==
LOC: ER 14:43 → MS 14:59
PROVIDERS: Admitting Provider Internal Medicine; Emergency Provider Emergency Medicine; PCP Family Medicine; Visit Provider Nurse Practitioner
DX: J18.9 Pneumonia, unspecified organism (principal); J96.01 Acute respiratory failure with hypoxia; N17.9 Acute kidney failure, unspecified; Z68.42 Body mass index [BMI] 45.0-49.9, adult; K52.9 Noninfective gastroenteritis and colitis, unspecified; E87.6 Hypokalemia; E83.42 Hypomagnesemia; H10.32 Unspecified acute conjunctivitis, left eye; M79.7 Fibromyalgia; E78.5 Hyperlipidemia, unspecified; E03.9 Hypothyroidism, unspecified; F32.A Depression, unspecified; K21.9 Gastro-esophageal reflux disease without esophagitis; Z79.4 Long term (current) use of insulin; Z79.899 Other long term (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; Z79.890 Hormone replacement therapy; E66.01 Morbid (severe) obesity due to excess calories; N18.31 Chronic kidney disease, stage 3a; I12.9 Hypertensive chronic kidney disease with stage 1 through stage 4 chronic kidney disease, or unspecified chronic kidney disease; E11.22 Type 2 diabetes mellitus with diabetic chronic kidney disease; Z87.440 Personal history of urinary (tract) infections; F41.9 Anxiety disorder, unspecified; R50.9 Fever, unspecified; E86.0 Dehydration; R53.1 Weakness; Z90.49 Acquired absence of other specified parts of digestive tract
CPT/HCPCS: 0202U; 36415; 71045; 71250; 74176; 80053; 81001; 82948; 83605; 83735; 84145; 84443; 84484; 85025; 85610; 87040; 87070; 87106; 87150; 87205; 87493; 87635; 87811; 93005; 94640; 94761; 96361; 96365; 96366; 96367; 96368; 96372; 96375; 97161; 97165; 97530; 99285; J0456; J3480

== ENCOUNTER 2023-09-10 20:06 | Emergency (ER) | payer MEDICARE, MEDICAID, SELFPAY ==
--- OUTSIDE RECORDS SUMMARY | 2023-09-10 20:15 | XMS_ITS | CCD ---
Author Name Unknown Address [address] [place] [address] Organization [facility] Care Team Providers Care Human Resources Safety Manager Name Role Phone MICHELJEFF HARRIS Primary Care Physician [phone] MD Ayden Freeman Primary Care Provider [phone] Al MD Mary Jane Campbell Admit Provider MD Sarah Osuna Other Provider MD Xin Phan Attending Provider DO Jair Gabriel Emergency Provider [phone] MD Luke Moran Admit Provider MD Lupe Hernandez Attending Provider DO Ramesh Byrd Emergency Provider [phone] PROVIDER, UNKNOWN Admitting Unavailable PROVIDER, UNKNOWN Attending [...] DR AYDEN Haney Consult[employer] Unavailable GRECHNY ., JOSE JUAN US Consulting UnavailXIN Tavares [employer] Unavailable DARAMOLJEMMA [...] sources) metFORMIN; Translations: [metformin] Drug [facility] ([facility] sources) Prochlorperazine; Translations: [prochlorperazine] Drug All[facility] (2 sources) Prochlorperazine Drug Allergy [facility] Repository Medications Current Medications Medication Drug [...] PO Q6H 0 April 04, 2022 12:00am [id number] 200 actuat albuterol 0.09 mg/actuat metered dose [...] by mouth four times daily Hydrocodone-Aceta minophen ([place]) 5-325 mg Tablet Discontinued 1 TAB PO [...] 09, 2022 12:27pm Sliding Scale ACHS nystatin [id number] unt/ml oral suspension (10 sources) Polyene Antifungal [...] disease (1 source) Atherosclerotic heart disease of [place] coronary artery without angina pectoris; Translations: [ASHD [place] W/O ANGINA PECTORIS] Onset: 05-20-2022 Chronic [...] 05-29-2022 Chronic Other aftercare (1 source) Other detention (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; Translations: [OTH GLOBAL CEO CURRENT DRUG THERAPY] Onset: 12-22-2022 Episodic Other [...] Onset: 01-28-2022 Episodic Other aftercare (1 source) skilled nursing (current) use of insulin; Translations: [GLOBAL CEO CURRENT USE OF INSULIN] Onset: 05-20-2022 Episodic [...] Results Test Name Value Interpretation Reference Range Facility CBC AUTO DIFFon 12-19-2022 BASO # 0.1 103/ul Normal 0.0-0.1 [facility] Comment on above: Performed By: #### T , BMP #### [facility] [address] [place] [address] Dr. Ladan Diehl Basophils/100 WBC (Bld) 1.2 % Normal 0.2-2.0 [facility] Comment on above: Performed By: #### T SH, BMP #### [facility] [address] [place] [address] Dr. Ladan Diehl EO # 0.4 103/ul Normal 0.0-0.7 [facility] Comment on above: Performed By: #### T SH, BMP #### [facility] [address] [place] [address] Dr. Ladan Diehl Eosinophils/100 WBC (Bld) 4.9 % Normal 0.9-7.0 [facility] Comment on above: Performed By: #### T SH, BMP #### [facility] [address] [place] [address] Dr. Ladan Diehl Erythrocyte distribution width (RBC) [Ratio] 14.8 % Normal 11.0-15.0 [facility] Comment on above: Performed By: #### T SH, BMP #### [facility] [address] [place] [address] Dr. Ladan Diehl Hematocrit (Bld) [Volume fraction] 36.7 % Critically low 42.0-54.0 [facility] Comment on above: Performed By: #### T SH, BMP #### [facility] [address] [place] [address] Dr. Ladan Diehl Hemoglobin (Bld) [Mass/Vol] 12.0 g/dL Critically low 14.0-18.0 [facility] Comment on above: Performed By: #### T SH, BMP #### [facility] [address] [place] [address] Dr. Ladan Diehl IG # 0.01 10e3/ul Normal 0.00-0.03 [facility] Comment on above: Performed By: #### T SH, BMP #### [facility] [address] [place] [address] Dr. Ladan Diehl IG % 0.1 % Normal 0.0-0.5 [facility] Comment on above: Performed By: #### T SH, BMP #### [facility] [address] [place] [address] Dr. Ladan Diehl LYMPH # 2.0 103/ul Normal 1.2-3.8 [facility] Comment on above: Performed By: #### T SH, BMP #### [facility] [address] [place] [address] Dr. Ladan Diehl Lymphocytes/100 WBC (Bld) 27.1 % Normal 20.5-60.0 [facility] Comment on above: Performed By: #### T SH, BMP #### [facility] [address] [place] [address] Dr. Ladan Diehl MANUAL DIFF REQ NO Normal [facility] Comment on above: Performed By: #### T SH, BMP #### [facility] [address] [place] [address] Dr. Ladan Diehl MCH (RBC) [Entitic mass] 29.6 pg Normal 25.9-34.0 [facility] Comment on above: Performed By: #### T STEFF, BMP #### [facility] [address] [place] [address] Dr. Ladan Diehl MCHC (RBC) [Mass/Vol] 32.7 g/dL Normal 29.9-35.2 [facility] Comment on above: Performed By: #### T STEFF, BMP #### [facility] [address] [place] [address] Dr. Ladan Diehl MCV (RBC) [Entitic vol] 90.6 fL Normal 80.0-94.0 [facility] Comment on above: Performed By: #### T STEFF, BMP #### [facility] [address] [place] [address] Dr. Ladan Diehl MONO # 0.8 103/ul Normal 0.3-0.8 [facility] Comment on above: Performed By: #### T STEFF, BMP #### [facility] [address] [place] [address] Dr. Ladan Diehl Monocytes/100 WBC (Bld) 10.4 % Normal 1.7-12.0 [facility] Comment on above: Performed By: #### T SH, BMP #### [facility] [address] [address] [address] Ladan Diehl NEUT # 4.2 103/ul Normal 1.4-6.5 [facility] Comment on above: Performed By: #### T SH, BMP #### [facility] [address] [address] [address] Ladan Diehl Neutrophils/100 WBC (Bld) 56.3 % Normal 43.0-75.0 [facility] Comment on above: Performed By: #### T SH, BMP #### [facility] [address] [place] [address] Dr. Ladna Diehl Platelet mean volume (Bld) [Entitic vol] 9.9 fL Normal 9.5-13.5 [facility] Comment on above: Performed By: #### T SH, BMP #### [facility] [address] [place] [address] Dr. Ladan Diehl PLT 227 103/ul Normal 150-450 [facility] Comment on above: Performed By: #### T SH, BMP #### [facility] [address] [place] [address] Dr. Ladan Diehl RBC 4.05 106/ul Critically low 4.70-6.10 [facility] Comment on above: Performed By: #### T SH, BMP #### [facility] [address] [place] [address] Dr. Ladan Diehl WBC 7.4 103/ul Normal 4.0-11.0 [facility] Comment on above: Performed By: #### T SH, BMP #### [facility] [address] [place] [address] Dr. Ladan Diehl FREE T3on 12-19-2022 FREE T3 2.07 pg/mlL Critically low 2.18-3.98 [facility] Comment on above: Performed By: #### T SH, BMP #### [facility] [address] [place] [address] Dr. Ladan Diehl FREE T4on 12-19-2022 Free T4 [Mass/Vol] 1.14 ng/dL Normal 0.76-1.46 [facility] Comment on above: Performed By: #### T SH, BMP #### [facility] [address] [address] [address] Ladan Diehl GLYCOHEMOGLOBIN A1Con 2022 ADA RECOMMENDATION SEE BELOW Normal [facility] Comment on above: Result Comment: ADA RECOMMENDED LIMIT 4.0 - 6.0 ADA THERAPEUTIC TARGET < 7.0 ACTION SUGGESTED > 7.0 Performed By: #### T SH, BMP #### [facility] [address] [place] [address] Dr. Ladan Diehl Glucose [Mass/Vol] 134 mg/dL Normal [facility] Comment on above: Performed By: #### T SH, BMP #### [facility] [address] [place] [address] Dr. Ladan Diehl HbA1c (Bld) [Mass fraction] 6.3 % Critically high 4.5-6.2 [facility] Comment on above: Performed By: #### T SH, BMP #### [facility] [address] [place] [address] Dr. Ladan Diehl LIPID PROFILEon 12-19-2022 CHOL-HDL RATIO NORM SEE BELOW Normal [facility] Comment on above: Result Comment: 3.3 - 4.4 LOW RISK 4.4 - 7.1 AVERAGE RISK 7.1 - 11.0 MODERATE RISK >11.0 HIGH RISK Performed By: #### T SH, BMP #### [facility] [address] [place] [address] Dr. Ladan Diehl Cholesterol [Mass/Vol] 118 mg/dL Normal <=200 [facility] Comment on above: Performed By: #### T SH, BMP #### [facility] [address] [address] [address] Ladan Diehl Cholesterol in HDL [Mass/Vol] 43 mg/dL Normal 40-60 [facility] Comment on above: Performed By: #### T SH, BMP #### [facility] [address] [address] [address] Ladan Diehl Cholesterol in LDL [Mass/Vol] 48.8 mg/dL Normal [facility] Comment on above: Performed By: #### T SH, BMP #### [facility] [address] [address] [address] Ladan Diehl Cholesterol.total/Choles terol in HDL [Mass ratio] 2.7 {ratio} Normal [facility] Comment on above: Performed By: #### T SH, BMP #### [facility] [address] [address] [address] Ladan Diehl HDL NORMAL > or = 60 mg/dl - LOW CARDIOVASCULAR RISK <40 mg/dl - HIGH CARDIOVASCULAR RISK Normal [facility] Comment on above: Performed By: #### T SH, BMP #### [facility] [address] [place] [address] Dr. Ladan Diehl LDL CALC NORMAL SEE BELOW Normal [facility] Comment on above: Result Comment: <100 mg/dl OPTIMAL 100 - 129 mg/dl NEAR OR ABOVE OPTIMAL 130 - 159 mg/dl BORDERLINE HIGH 160 - 189 mg/dl HIGH >190 mg/dl VERY HIGH Performed By: #### T SH, BMP #### [facility] [address] [place] [address] Dr. Ladan Diehl Triglyceride [Mass/Vol] 131 mg/dL Normal <=150 [facility] Comment on above: Performed By: #### T SH, BMP #### [facility] [address] [place] [address] Dr. Ladan Diehl VLDL CALC 26.2 mg/dL Normal [facility] Comment on above: Performed By: #### T SH, BMP #### [facility] [address] [place] [address] Dr. Ladan Diehl LIVER PROFILEon 12-19-2022 Albumin [Mass/Vol] 2.7 g/dL Critically low 3.4-5.0 [facility] Comment on above: Performed By: #### T SH, BMP #### [facility] [address] [place] [address] Dr. Ladan Diehl Albumin/Globulin [Mass ratio] 0.4 {ratio} Normal [facility] Comment on above: Performed By: #### T SH, BMP #### [facility] [address] [address] [address] Ladan Diehl ALP [Catalytic activity/Vol] 154 U/L Critically high 46-116 [facility] Comment on above: Performed By: #### T SH, BMP #### [facility] [address] [place] [address] Dr. Ladan Diehl ALT [Catalytic activity/Vol] 25 U/L Normal 16-63 [facility] Comment on above: Performed By: #### T SH, BMP #### [facility] [address] [address] [address] Ladan Diehl AST [Catalytic activity/Vol] 38 U/L Critically high 15-37 [facility] Comment on above: Performed By: #### T SH, BMP #### [facility] [address] [place] [address] Dr. Ladan Diehl BILI, CONJUGATED 0.2 mg/dL Normal 0.0-0.2 [facility] Comment on above: Performed By: #### T SH, BMP #### [facility] [address] [place] [address] Dr. Ladan Diehl Bilirubin [Mass/Vol] 0.8 mg/dL Normal 0.2-1.0 [facility] Comment on above: Performed By: #### T SH, BMP #### [facility] [address] [place] [address] Dr. Ladan Diehl Globulin (S) [Mass/Vol] 6.2 g/dL Normal [facility] Comment on above: Performed By: #### T SH, BMP #### [facility] [address] [place] [address] Dr. Ladan Diehl Protein [Mass/Vol] 8.9 g/dL Critically high 6.4-8.2 [facility] Comment on above: Performed By: #### T SH, BMP #### [facility] [address] [place] [address] Dr. Ladan Diehl MICROALBUMIN, RAND URon 05-1 mALB 25.4 mg/dL Normal <=30.0 [facility] Comment on above: Performed By: #### T SH, BMP #### [facility] [address] [address] [address] Ladan Diehl PROF CHEM 8 (BAS METB)on Anion gap [Moles/Vol] 10.7 mmol/L Normal [facility] Comment on above: Performed By: #### T SH, BMP #### [facility] [address] [address] [address] Ladan Diehl Calcium [Mass/Vol] 9.0 mg/dL Normal 8.5-10.1 [facility] Comment on above: Performed By: #### T SH, BMP #### [facility] [address] [address] [address] Ladan Diehl Chloride [Moles/Vol] 103 mmol/L Normal 98-107 [facility] Comment on above: Performed By: #### T SH, BMP #### [facility] [address] [place] [address] Dr. Ladan Diehl CO2 [Moles/Vol] 27.5 mmol/L Normal 21.0-32.0 [facility] Comment on above: Performed By: #### T SH, BMP #### [facility] [address] [place] [address] Dr. Ladan Diehl Creatinine [Mass/Vol] 1.29 mg/dL Normal 0.70-1.30 [facility] Comment on above: Performed By: #### T SH, BMP #### [facility] [address] [place] [address] Dr. Ladan Diehl EGFR-AF [place]ER >60 Normal >=60 [facility] Comment on above: Performed By: #### T SH, BMP #### [facility] [address] [place] [address] Dr. Ladan Diehl EGFR-NON AF [place] 56 mL/min/1.73m2 Critically low >=60 [facility] Comment on above: Performed By: #### T SH, BMP #### [facility] [address] [place] [address] Dr. Ladan Diehl Glucose [Mass/Vol] 108 mg/dL Critically high 74-106 [facility] Comment on above: Performed By: #### T SH, BMP #### [facility] [address] [address] [address] Ladan Diehl Potassium [Moles/Vol] 4.2 mmol/L Normal 3.5-5.1 [facility] Comment on above: Performed By: #### T SH, BMP #### [facility] [address] [address] [address] Ladan Diehl Sodium [Moles/Vol] 137 mmol/L Normal 136-145 [facility] Comment on above: Performed By: #### T STEFF, BMP #### [facility] [address] [address] [address] Ladan Diehl Urea nitrogen [Mass/Vol] 12.0 mg/dL Normal 7.0-18.0 [facility] Comment on above: Performed By: #### T STEFF, BMP #### [facility] [address] [place] [address] Dr. Ladan Diehl Urea nitrogen/Creatinine [Mass ratio] 9.3 mg/mg Normal [facility] Comment on above: Performed By: #### T STEFF, BMP #### [facility] [address] [place] [address] Dr. Ladan Diehl TSHon 12-19-2022 TSH 8.668 uIU/mL Critically high 0.358-3.740 [facility] Comment on above: Performed By: #### T STEFF, BMP #### [facility] [address] [place] [address] Dr. Ladan Diehl GLYCOHEMOGLOBIN A1Con 2021 ADA RECOMMENDATION SEE BELOW Normal [facility] Comment on above: Result Comment: ADA RECOMMENDED LIMIT 4.0 - 6.0 ADA THERAPEUTIC TARGET < 7.0 ACTION SUGGESTED > 7.0 Performed By: #### A 1C #### [facility] [address] [place] [address] Dr. Ladan Diehl Glucose [Mass/Vol] 140 mg/dL Normal [facility] Comment on above: Performed By: #### A 1C #### [facility] [address] [place] [address] Dr. Ladan Diehl HbA1c (Bld) [Mass fraction] 6.5 % Critically high 4.5-6.2 [facility] Comment on above: Performed By: #### A 1C #### [facility] [address] [address] CSPINE WO CONon 2 CT CSPINE WO CON EXAMINATION: CT CSPINE WO CON HISTORY: UNSPECIFIED INJURY OF HEAD, [...] by: CAROL YIP Date: 2022-05-17 13:25 Normal [facility] CT HEAD WO CONon 05-17-2022 CT HEAD [...] by: CAROL YIP Date: 2022-05-17 13:07 Normal [facility] XR CHEST 1 Von 05-17-2022 XR CHEST 1 V PORTABLE CHEST X-RAY. INDICATION: Chest pain. COMPARISON: 01/18/2022 TECHNIQUE: Single AP portable chest radiograph. FINDINGS: TUBES AND LINES: None. LUNGS: Hyperexpanded lungs. Minimal left basilar opacities. PLEURA: Questionable trace left effusion. HEART AND MEDIASTINUM: Within normal limits for portable technique. OSSEOUS STRUCTURES: No acute abnormality. IMPRESSION: Minimal left basilar opacities probably atelectasis. 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 Interface Message Text EMERGENCY TRIAGE, TREAT AND TRANSPORT (ET3) DOCUMENTATION OF TELEHEALTH VISIT Date / Time: 05/01/2022599 Name: Stephane Patterson : 1955 SSN: [id number] EMS Agency: [facility] [x] Verbal consent obtained [] [...] Same ET3 Encounter Completed by: Peter Molina, DO Normal [facility] [employer] Activated partial thrombopla stin time (aPTT) in platelet poor plasma by coagulation aOrdered By: Ramesh Byrd on 04-12-2022 aPTT Coag (PPP) [Time] 24.8 s 25.1-36.5 [facility] Automated erythrocytes count in urine sediment (number/area)Ordered By: Ramesh Byrd on 04-12-2022 RBC Auto (Urine sed) [#/Area] 20-49 [HPF] 0-[address] [facility] Automated leukocytes count i n urine sediment (number/area)Ordered By: Ramesh Byrd on 04-12-2022 WBC Auto (Urine sed) [#/Area] 1-2 [HPF] 0-[address] [facility] B-Type Natriuretic Peptideon 04-12-2022 Natriuretic peptide B (Bld) [Mass/Vol] 196.0 pg/mL High 5-[address] [facility] Comment on above: Result Comment: PERF ORMED BY: [place] [address] PATHOLOGIST FIELD CROPS HARVEST MACHINE OPERATOR CHARLENE HERNANDEZ M.D. Performed By: #### C MP, TSH3, PT, HS TROP, PTT, BNP, MG, CBC #### [address] Basophils Auto (Bld) [#/Vol] Ordered By: Ramesh Byrd on 04-12-2022 Basophils (Bld) [#/Vol] 0.0 10*3/uL 0.0-0.[address] [facility] Basophils/100 WBC Auto (Bld) Ordered By: Ramesh Byrd on 04-12-2022 Basophils/100 WBC (Bld) 0.6 % . [facility] Bilirubin Test strip Ql (U)O rdered By: Ramesh Byrd on 04-12-2022 Bilirubin Ql (U) Negative Negative [facility] Blood hemoglobin measurement (mass/volume)Ordered By: Ramesh Byrd on 04-12-2022 Hemoglobin (Bld) [Mass/Vol] 12.2 g/dL 13.0-17.[address] [facility] Blood leukocytes automated c ount (number/volume)Ordered By: Ramesh Byrd on 04-12-2022 WBC (Bld) [#/Vol] 6.4 10*3/uL 4.5-11.0 [facility] Body fluid albumin measureme nt (mass/volume)Ordered By: Ramesh Byrd on 04-12-2022 Albumin (Body fld) [Mass/Vol] 2.3 g/dL 3.2-5.[address] [facility] Color Auto (U)Ordered By: Andi Byrd on 04-12-2022 Color (U) Yellow Yellow [facility] Complete Blood Count Auto Di ffon 04-12-2022 Basophils (Bld) [#/Vol] 0.0 10*3/uL Normal 0.0-0.[address] [facility] Comment on above: Result Comment: PERF ORMED BY: [facility] [address] [place] [address] PATHOLOGIST FIELD CROPS HARVEST MACHINE OPERATOR CHARLENE HERNANDEZ M.D. Performed By: #### C MP, TSH3, PT, HS TROP, PTT, BNP, MG, CBC #### [facility] [address] Basophils/100 WBC (Bld) 0.6 % Normal . [facility] Comment on above: Performed By: #### C MP, TSH3, PT, HS TROP, PTT, BNP, MG, CBC #### [address] Eosinophils (Bld) [#/Vol] 0.2 10*3/uL Normal 0.0-0.[address] [facility] Comment on above: Performed By: #### C MP, TSH3, PT, HS TROP, PTT, BNP, MG, CBC #### [address] Eosinophils/100 WBC (Bld) 2.7 % Normal . [facility] Comment on above: Performed By: #### C MP, TSH3, PT, HS TROP, PTT, BNP, MG, CBC #### [address] Erythrocyte distribution width (RBC) [Ratio] 16.7 % High 12.0-14.[address] [facility] Comment on above: Performed By: #### C MP, TSH3, PT, HS TROP, PTT, BNP, MG, CBC #### [address] Hematocrit (Bld) [Volume fraction] 36.7 % Low 38.8-50.[address] [facility] Comment on above: Performed By: #### C MP, TSH3, PT, HS TROP, PTT, BNP, MG, CBC #### [address] Hemoglobin (Bld) [Mass/Vol] 12.2 g/dL Low 13.0-17.[address] [facility] Comment on above: Performed By: #### C MP, TSH3, PT, HS TROP, PTT, BNP, MG, CBC #### [address] Lymphocytes (Bld) [#/Vol] 1.0 10*3/uL Normal 1.00-4.[address] [facility] Comment on above: Performed By: #### C MP, TSH3, PT, HS TROP, PTT, BNP, MG, CBC #### [address] Lymphocytes/100 WBC (Bld) 16.1 % Normal . [facility] Comment on above: Performed By: #### C MP, TSH3, PT, HS TROP, PTT, BNP, MG, CBC #### [address] MCH (RBC) [Entitic mass] 31.0 pg Normal 27.5-35.[address] [facility] Comment on above: Performed By: #### C MP, TSH3, PT, HS TROP, PTT, BNP, MG, CBC #### [address] MCV (RBC) [Entitic vol] 93.5 fL Normal 83.5-101 [facility] Comment on above: Performed By: #### C MP, TSH3, PT, HS TROP, PTT, BNP, MG, CBC #### [address] Mean Corpuscular HGB Conc 33.1 g/dL Normal 32.5-35.[address] [facility] Comment on above: Performed By: #### C MP, TSH3, PT, HS TROP, PTT, BNP, MG, CBC #### [address] Monocytes (Bld) [#/Vol] 0.8 10*3/uL Normal 0.0-0.[address] [facility] Comment on above: Performed By: #### C MP, TSH3, PT, HS TROP, PTT, BNP, MG, CBC #### [address] Monocytes/100 WBC (Bld) 12.0 % Normal . [facility] Comment on above: Performed By: #### C MP, TSH3, PT, HS TROP, PTT, BNP, MG, CBC #### [address] Neutrophils (Bld) [#/Vol] 4.4 10*3/uL Normal 1.8-7.[address] [facility] Comment on above: Performed By: #### C MP, TSH3, PT, HS TROP, PTT, BNP, MG, CBC #### [facility] [address] Neutrophils/100 WBC (Bld) 68.6 % Normal . [facility] Comment on above: Performed By: #### C MP, TSH3, PT, HS TROP, PTT, BNP, MG, CBC #### [facility] [address] Nucleated RBC/100 WBC (Bld) [Ratio] 0.1 % Normal 0-0.[address] [facility] Comment on above: Performed By: #### C MP, TSH3, PT, HS TROP, PTT, BNP, MG, CBC #### [facility] [facility] [address] Platelet mean volume (Bld) [Entitic vol] 8.0 fL Normal 6.6-10.[address] [facility] Comment on above: Performed By: #### C MP, TSH3, PT, HS TROP, PTT, BNP, MG, CBC #### [facility] [address] Platelets (Bld) [#/Vol] 191 10*3/uL Normal 150-[address] [facility] Comment on above: Performed By: #### C MP, TSH3, PT, HS TROP, PTT, BNP, MG, CBC #### [address] RBC (Bld) [#/Vol] 3.93 10*6/uL Normal 3.90-5.60 [facility] Comment on above: Performed By: #### C MP, TSH3, PT, HS TROP, PTT, BNP, MG, CBC #### [facility] [address] WBC (Bld) [#/Vol] 6.4 10*3/uL Normal 4.5-11.0 [facility] Comment on above: Performed By: #### C MP, TSH3, PT, HS TROP, PTT, BNP, MG, CBC #### [address] Comprehensive Metabolic Pane xavier 04-12-2022 Albumin [Mass/Vol] 2.3 g/dL Low 3.2-5.5 [facility] Comment on above: Performed By: #### C MP, TSH3, PT, HS TROP, PTT, BNP, MG, CBC #### [facility] [address] Albumin/Globulin [Mass ratio] 0.5 {ratio} Normal [facility] Comment on above: Performed By: #### C MP, TSH3, PT, HS TROP, PTT, BNP, MG, CBC #### [facility] [address] ALP [Catalytic activity/Vol] 97 U/L High 32-[address] [facility] Comment on above: Performed By: #### C MP, TSH3, PT, HS TROP, PTT, BNP, MG, CBC #### [facility] [address] ALT [Catalytic activity/Vol] 34 U/L Normal 10-[address] [facility] Comment on above: Performed By: #### C MP, TSH3, PT, HS TROP, PTT, BNP, MG, CBC #### [facility] [address] Anion gap [Moles/Vol] 17.1 mmol/L High 6.0-15.0 [facility] Comment on above: Performed By: #### C MP, TSH3, PT, HS TROP, PTT, BNP, MG, CBC #### [facility] [address] AST [Catalytic activity/Vol] 136 U/L High 10-[address] [facility] Comment on above: Performed By: #### C MP, TSH3, PT, HS TROP, PTT, BNP, MG, CBC #### [facility] [address] Bilirubin [Mass/Vol] 1.3 mg/dL High 0.3-1.2 [facility] Comment on above: Result Comment: Samp les from patients who have taken Naproxen have shown spurious elevation in Total Bilirubin levels. A metabolite of Naproxen, O-desmethylnaproxen, has been shown to interfere with the Jendrassik-Grof method for measuring Total Bilirubin. Performed By: #### C MP, TSH3, PT, HS TROP, PTT, BNP, MG, CBC #### [address] Calcium [Mass/Vol] 8.6 mg/dL Normal 8.2-10.2 [facility] Comment on above: Performed By: #### C MP, TSH3, PT, HS TROP, PTT, BNP, MG, CBC #### [address] Chloride [Moles/Vol] 97 mmol/L Normal 95-114 [facility] Comment on above: Performed By: #### C MP, TSH3, PT, HS TROP, PTT, BNP, MG, CBC #### [address] CO2 [Moles/Vol] 25.4 mmol/L Normal 22.0-30.0 [facility] Comment on above: Performed By: #### C MP, TSH3, PT, HS TROP, PTT, BNP, MG, CBC #### [address] Creatinine [Mass/Vol] 1.14 mg/dL Normal 0.64-1.27 [facility] Comment on above: Performed By: #### C MP, TSH3, PT, HS TROP, PTT, BNP, MG, CBC #### [address] Creatinine Clr Calc Pharmacy 97.67 [facility] Comment on above: Performed By: #### C MP, TSH3, PT, HS TROP, PTT, BNP, MG, CBC #### [address] Estimated GFR ( Lilibeth > 60 [facility] Comment on above: Result Comment: GFR estimated reference range: According to KDOQI guidelines, <60 ml/min/1.73m2 is sufficient to diagnose a patient with chronic kidney disease. Performed By: #### C MP, TSH3, PT, HS TROP, PTT, BNP, MG, CBC #### [facility] [address] Estimated GFR (Non- Am > [address] [facility] Comment on above: Performed By: #### C MP, TSH3, PT, HS TROP, PTT, BNP, MG, CBC #### [facility] [address] Globulin (S) [Mass/Vol] 4.7 g/dL Normal [facility] Comment on above: Performed By: #### C MP, TSH3, PT, HS TROP, PTT, BNP, MG, CBC #### [address] Glucose [Mass/Vol] 164 mg/dL High 70-100 [facility] Comment on above: Result Comment: [facility] Glucose Reference Range is dependent on time and content of last meal. Glucose of more than 200 mg/dL in a nonstressed, ambulatory subject supports the diagnosis of Diabetes Mellitus. ADA recommended reference range Performed By: #### C MP, TSH3, PT, HS TROP, PTT, BNP, MG, CBC #### [address] Potassium [Moles/Vol] 3.5 mmol/L Normal 3.5-5.1 [facility] Comment on above: Performed By: #### C MP, TSH3, PT, HS TROP, PTT, BNP, MG, CBC #### [address] Protein [Mass/Vol] 7.0 g/dL Normal 6.1-7.9 [facility] Comment on above: Performed By: #### C MP, TSH3, PT, HS TROP, PTT, BNP, MG, CBC #### [address] Sodium [Moles/Vol] 136 mmol/L Normal 136-146 [facility] Comment on above: Performed By: #### C MP, TSH3, PT, HS TROP, PTT, BNP, MG, CBC #### [address] Urea nitrogen [Mass/Vol] 13 mg/dL Normal - [facility] Comment on above: Performed By: #### C MP, TSH3, PT, HS TROP, PTT, BNP, MG, CBC #### [place] [address] [place] Creatinine and Glomerular fi ltration rate.predicted panel (S/P/Bld)Ordered By: Ramesh Byrd on 04-12-2022 Creatinine [Mass/Vol] 1.14 mg/dL 0.64-1.27 [facility] Dipstick and Microscopicon 0 04-12-2022 Appearance (U) Clear Normal Clear [facility] Comment on above: Order Comment: Name Collection Type:: Clean-Voided Midstream Performed By: #### A DDONUAPLUS #### [address] Bacteria,Urine None Seen Normal None Seen [facility] Comment on above: Order Comment: Name Collection Type:: Clean-Voided Midstream Performed By: #### A DDONUAPLUS #### [place] [address] [place] Bilirubin,Urine Negative Normal Negative [facility] Comment on above: Order Comment: Name Collection Type:: Clean-Voided Midstream Performed By: #### A DDONUAPLUS #### [address] Color (U) Yellow Normal Yellow [facility] Comment on above: Order Comment: Name Collection Type:: Clean-Voided Midstream Performed By: #### A DDONUAPLUS #### [place] [address] [place] Glucose Ql (U) Normal Normal Normal [facility] Comment on above: Order Comment: Name Collection Type:: Clean-Voided Midstream Performed By: #### A DDONUAPLUS #### [place] [address] [place] Hyaline Casts,Urine 0-8 Normal 0-8 [facility] Comment on above: Order Comment: Name Collection Type:: Clean-Voided Midstream Result Comment: PERF ORMED BY: [place] [address] PATHOLOGIST FIELD CROPS HARVEST MACHINE OPERATOR CHARLENE HERNANDEZ M.D. Performed By: #### A DDONUAPLUS #### [place] [address] [place] Ketones Ql (U) Trace High Negative [facility] Comment on above: Order Comment: Name Collection Type:: Clean-Voided Midstream Performed By: #### A DDONUAPLUS #### [place] [address] [place] Leukocyte esterase Test strip Ql (U) Negative Normal Negative [facility] Comment on above: Order Comment: Name Collection Type:: Clean-Voided Midstream Performed By: #### A DDONUAPLUS #### [place] [address] [place] Nitrite,Urine Negative Normal Negative [facility] Comment on above: Order Comment: Name Collection Type:: Clean-Voided Midstream Performed By: #### A DDONUAPLUS #### [place] [address] [place] Occult Blood,Urine 2+ High Negative [facility] Comment on above: Order Comment: Name Collection Type:: Clean-Voided Midstream Result Comment: PERF ORMED BY: [place] [address] PATHOLOGIST FIELD CROPS HARVEST MACHINE OPERATOR CHARLENE HERNANDEZ M.D. Performed By: #### A DDONUAPLUS #### [place] [id number] [place] pH (U) 6.5 [pH] Normal 5.0-9.[address] [facility] Comment on above: Order Comment: Name Collection Type:: Clean-Voided Midstream Performed By: #### A DDONUAPLUS #### [place] [address] [place] Protein (U) [Mass/Vol] 100 mg/dL High Negative [facility] Comment on above: Order Comment: Name Collection Type:: Clean-Voided Midstream Performed By: #### A DDONUAPLUS #### [facility] [address] [place] [address] [place] RBC,Urine 20-49 High 0-[address] [facility] Comment on above: Order Comment: Name Collection Type:: Clean-Voided Midstream Performed By: #### A DDONUAPLUS #### [facility] [address] [place] [address] Specificy [place],Urine 1.020 Normal 1.001-1.[address] [facility] Comment on above: Order Comment: Name Collection Type:: Clean-Voided Midstream Performed By: #### A DDONUAPLUS #### [facility] [address] [place] [address] Squamous Epithelial Cell,Urine 0-1 Normal 0-[address] [facility] Comment on above: Order Comment: Name Collection Type:: Clean-Voided Midstream Performed By: #### A DDONUAPLUS #### [facility] [address] [place] [address] Urobilinogen,Urine Normal Normal Normal [facility] Comment on above: Order Comment: Name Collection Type:: Clean-Voided Midstream Performed By: #### A DDONUAPLUS #### [facility] [address] [place] [address] [place] WBC,Urine 1-2 Normal 0-[address] [facility] Comment on above: Order Comment: Name Collection Type:: Clean-Voided Midstream Performed By: #### A DDONUAPLUS #### [facility] [address] [place] [address] ECG 12 lead ECGon 04-12-2022 ECG 12 lead ECG [facility] [place] [address] Electrocardiograph Report Signed Patient: Stephane Patterson MR#: [id number] 005 : 1955 Acct:[id number] Age/Sex: 66 / M ADM Date: 04/12/22 Loc: ER Room: Type: [facility] ER Attending Dr: Ordering Provider: Ramesh Byrd [...] Prolonged QT Confirmed by Ramesh BYRD DO ([id number]) on 04/12/2022 4:38:01 PM Referred By: Electronically Signed By:Ramesh BYRD DO Transcribed By: MUS Signed By Ramesh Byrd DO 0 04/12/[address] [facility] Eosinophils Auto (Bld) [#/Vo l]Ordered By: Ramesh Byrd on 04-12-2022 Eosinophils (Bld) [#/Vol] 0.2 10*3/uL 0.0-0.[address] [facility] Eosinophils/100 WBC Auto (Bl d)Ordered By: Ramesh Byrd on 04-12-2022 Eosinophils/100 WBC (Bld) 2.7 % . [facility] Erythrocyte distribution wid th Auto (RBC) [Ratio]Ordered By: Ramesh Byrd on 04-12-2022 Erythrocyte distribution width (RBC) [Ratio] 16.7 % 12.0-14.[address] [facility] Estimated glomerular filtrat ion rate (GFR) non- AmericanOrdered By: Ramesh Byrd on 04-12-2022 GFR/1.73 sq M.predicted among non-blacks MDRD (S/P/Bld) [Vol rate/Area] > 60 mL/Min [facility] Globulin Calc (S) [Mass/Vol] Ordered By: Ramesh Byrd on 04-12-2022 Globulin (S) [Mass/Vol] 4.7 g/dL [facility] Glucose Glucometer (BldC) [M ass/Vol]Ordered By: Ramesh Byrd on 04-12-2022 Glucose [Mass/Vol] 168 mg/dL [facility] Comment on above: Random Glucose Refer ence Range is dependent on time and content of last meal. Glucose of more than 200 mg/dL in a nonstressed, ambulatory subject supports the diagnosis of Diabetes Mellitus. Glucose Poct Glucometerson 0 04-12-2022 Glucose [Mass/Vol] 168 mg/dL Normal [facility] Comment on above: Result Comment: [place] Glucose Reference Range is dependent on time and content of last meal. Glucose of more than 200 mg/dL in a nonstressed, ambulatory subject supports the diagnosis of Diabetes Mellitus. PERFORMED BY: [place] [address] PATHOLOGIST FIELD CROPS HARVEST MACHINE OPERATOR CHARLENE HERNANDEZ M.D. Performed By: #### G CARMEN #### Point of Care testing , Hematocrit Auto (Bld) [Volum e fraction]Ordered By: Ramesh Byrd on 04-12-2022 Hematocrit (Bld) [Volume fraction] 36.7 % 38.8-50.[address] [facility] Ketones Auto test strip (U) [Mass/Vol]Ordered By: Ramesh Byrd on 04-12-2022 Ketones (U) [Mass/Vol] Trace Negative [facility] Laboratory - Chemistry and C hemistry - challengeOrdered By: Ramesh Byrd on 04-12-2022 Magnesium [Mass/Vol] 1.3 mg/dL 1.6-2.6 [facility] Natriuretic peptide B (Bld) [Mass/Vol] 196.0 pg/mL 5-[address] [facility] Laboratory - CoagulationOrde red By: Ramesh Byrd on 04-12-2022 PT Coag (PPP) [Time] 12.5 s 9.0-12.9 [facility] Laboratory - Hematology and Cell countsOrdered By: Ramesh Byrd on 04-12-2022 Nucleated RBC/100 WBC (Bld) [Ratio] 0.1 % 0-0.[address] [facility] Laboratory - UrinalysisOrder ed By: Ramesh Byrd on 04-12-2022 Hyaline casts LM Ql (Urine sed) 0-8 [LPF] 0-[address] [facility] Lymphocytes Auto (Bld) [#/Vo l]Ordered By: Ramesh Byrd on 04-12-2022 Lymphocytes (Bld) [#/Vol] 1.0 10*3/uL 1.00-4.[address] [facility] Lymphocytes/100 WBC Auto (Bl d)Ordered By: Ramesh Byrd on 04-12-2022 Lymphocytes/100 WBC (Bld) 16.1 % . [facility] MCH Auto (RBC) [Entitic mass ]Ordered By: Ramesh Byrd on 04-12-2022 MCH (RBC) [Entitic mass] 31.0 pg 27.5-35.[address] [facility] MCHC Auto (RBC) [Mass/Vol]Or dered By: Ramesh Byrd on 04-12-2022 MCHC (RBC) [Mass/Vol] 33.1 g/dL 32.5-35.6 [facility] MCV Auto (RBC) [Entitic vol] Ordered By: Ramesh Byrd on 04-12-2022 MCV (RBC) [Entitic vol] 93.5 fL 83.5-101 [facility] Magnesiumon 04-12-2022 Magnesium [Mass/Vol] 1.3 mg/dL Low 1.6-2.6 [facility] Comment on above: Performed By: #### G LULS #### Point of Care testing , Monocytes Auto (Bld) [#/Vol] Ordered By: Ramesh Byrd on 04-12-2022 Monocytes (Bld) [#/Vol] 0.8 10*3/uL 0.0-0.[address] [facility] Monocytes/100 WBC Auto (Bld) Ordered By: Ramesh Byrd on 04-12-2022 Monocytes/100 WBC (Bld) 12.0 % . [facility] Neutrophils Auto (Bld) [#/Vo l]Ordered By: Ramesh Byrd on 04-12-2022 Neutrophils (Bld) [#/Vol] 4.4 10*3/uL 1.8-7.[address] [facility] Neutrophils/100 WBC Auto (Bl d)Ordered By: Ramesh Byrd on 04-12-2022 Neutrophils/100 WBC (Bld) 68.6 % . [facility] Nitrite Test strip Ql (U)Ord ered By: Ramesh Byrd on 04-12-2022 Nitrite Ql (U) Negative Negative [facility] No Panel InformationOrdered By: Ramesh Byrd on 04-12-2022 Estimated GFR () > 60 mL/Min [facility] Comment on above: GFR estimated refere nce range: According to KDOQI guidelines, <60 ml/min/1.73m2 is sufficient to diagnose a patient with chronic kidney disease. Pharmacy Creatinine Clearance (Chem 97.[address] [facility] Partial Thromboplastin Timeo n 04-12-2022 aPTT Coag (Bld) [Time] 24.8 s Low 25.1-36.5 [facility] Comment on above: Result Comment: PERF ORMED BY: [facility] [address] [place] [address] PATHOLOGIST FIELD CROPS HARVEST MACHINE OPERATOR CHARLENE HERNANDEZ M.D. Performed By: #### C MP, TSH3, PT, HS TROP, PTT, BNP, MG, CBC #### [facility] [address] Platelet mean volume Auto (B ld) [Entitic vol]Ordered By: Ramesh Byrd on 04-12-2022 Platelet mean volume (Bld) [Entitic vol] 8.0 fL 6.6-10.[address] [facility] Platelet poor plasma interna tional normalized ratio (INR) by coagulation assay (relatOrdered By: Ramesh Byrd on 04-12-2022 INR Coag (PPP) [Relative time] 1.1 {INR} [facility] Comment on above: INR Therapeutic Rang [...] 04-12-2022 Platelets (Bld) [#/Vol] 191 10*3/uL 150-[address] [facility] Protein Auto test strip (U) [Mass/Vol]Ordered By: Ramesh Byrd on 04-12-2022 Protein (U) [Mass/Vol] 100 mg/dL Negative [facility] Protein [Mass/volume] in Ser um or PlasmaOrdered By: Ramesh Byrd on 04-12-2022 Protein [Mass/Vol] 7.0 g/dL 6.1-7.9 [facility] Prothrombin Time INRon 04-12 INR Coag (PPP) [Relative time] 1.1 {INR} Normal [facility] Comment on above: Result Comment: INR [...] HS TROP, PTT, BNP, MG, CBC #### [facility] [address] PT Coag (PPP) [Time] 12.5 s Normal 9.0-12.9 [facility] Comment on above: Performed By: #### C MP, TSH3, PT, HS TROP, PTT, BNP, MG, CBC #### [facility] [address] RBC Auto (Bld) [#/Vol]Ordere d By: Ramesh Byrd on 04-12-2022 RBC (Bld) [#/Vol] 3.93 10*6/uL 3.90-5.60 [facility] Serum or plasma alanine vivas otransferase measurement without P-5'-P (enzymatic activiOrdered By: Ramesh Byrd on 04-12-2022 ALT No additional P-5'-P [Catalytic activity/Vol] 34 U/L 10-60 [facility] Serum or plasma albumin/glob ulin mass ratioOrdered By: Ramesh Byrd on 04-12-2022 Albumin/Globulin [Mass ratio] 0.5 {ratio} [facility] Serum or plasma alkaline dilan sphatase measurement (enzymatic activity/volume)Ordered By: Ramesh Byrd on 04-12-2022 ALP [Catalytic activity/Vol] 97 U/L 32-[address] [facility] Serum or plasma anion gap de terminationOrdered By: Ramesh Byrd on 04-12-2022 Anion gap [Moles/Vol] 17.1 mmol/L 6.0-15.0 [facility] Serum or plasma aspartate am inotransferase measurement (enzymatic activity/volume)Ordered By: Ramesh Byrd on 04-12-2022 AST [Catalytic activity/Vol] 136 U/L 10-[address] [facility] Serum or plasma calcium osbaldo urement (mass/volume)Ordered By: Ramesh Byrd on 04-12-2022 Calcium [Mass/Vol] 8.6 mg/dL 8.2-10.2 [facility] Serum or plasma chloride judith surement (moles/volume)Ordered By: Ramesh Byrd on 04-12-2022 Chloride [Moles/Vol] 97 mmol/L 95-114 [facility] Serum or plasma glucose osbaldo urement (mass/volume)Ordered By: Ramesh Byrd on 04-12-2022 Glucose [Mass/Vol] 164 mg/dL 70-100 [facility] Comment on above: ADA recommended refe rence range Random Glucose Reference Range is dependent on time and content of last meal. Glucose of more than 200 mg/dL in a nonstressed, ambulatory subject supports the diagnosis of Diabetes Mellitus. Serum or plasma potassium me asurement (moles/volume)Ordered By: Ramesh Byrd on 04-12-2022 Potassium [Moles/Vol] 3.5 mmol/L 3.5-5.1 [facility] Serum or plasma sodium measu rement (moles/volume)Ordered By: Ramesh Byrd on 04-12-2022 Sodium [Moles/Vol] 136 mmol/L 136-146 [facility] Serum or plasma total biliru bin measurement (mass/volume)Ordered By: Ramesh Byrd on 04-12-2022 Bilirubin [Mass/Vol] 1.3 mg/dL 0.3-1.2 [facility] Comment on above: Samples from patient s who have taken Naproxen have shown spurious elevation in Total Bilirubin levels. A metabolite of Naproxen, O-desmethylnaproxen, has been shown to interfere with the Jorge Alberto method for measuring Total Bilirubin. Serum or plasma total carbon dioxide measurement (moles/volume)Ordered By: Ramesh Byrd on 04-12-2022 CO2 [Moles/Vol] 25.4 mmol/L 22.0-30.0 [facility] Serum or plasma urea nitroge n measurement (mass/volume)Ordered By: Ramesh Byrd on 04-12-2022 Urea nitrogen [Mass/Vol] 13 mg/dL [address] [facility] Specific gravity Auto test s trip (U) [Rel density]Ordered By: Ramesh Byrd on 04-12-2022 Specific gravity (U) [Rel density] 1.020 1.001-1.[address] [facility] Squamous epithelial cells de tection in urine sediment by light microscopyOrdered By: Ramesh Byrd on 04-12-2022 Epithelial cells.squamous LM Ql (Urine sed) 0-1 [HPF] 0-[address] [facility] TSH DL <= 0.005 mIU/L QnOrde red By: Ramesh Byrd on 04-12-2022 TSH Qn 13.14 m[IU]/L 0.45-5.[address] [facility] Thyroid Stimulating Hormoneo n 04-12-2022 TSH Qn 13.14 m[IU]/L High 0.45-5.[address] [facility] Comment on above: Result Comment: PERF ORMED BY: [place] [address] PATHOLOGIST FIELD CROPS HARVEST MACHINE OPERATOR CHARLENE HERNANDEZ M.D. Performed By: #### G LULS #### Point of Care testing , Troponin I High Sensitivityo n 04-12-2022 Troponin I High Sensitivity 18 pg/mL Normal 0-[address] [facility] Comment on above: Result Comment: PERF ORMED BY: [place] [address] PATHOLOGIST FIELD CROPS HARVEST MACHINE OPERATOR CHARLENE HERNANDEZ M.D. Performed By: #### C MP, TSH3, PT, HS TROP, PTT, BNP, MG, CBC #### [address] Troponin I.cardiac [Mass/vol ume] in Serum or Plasma by High sensitivity methodOrdered By: Ramesh Byrd on 04-12-2022 Troponin I.cardiac High sensitivity method [Mass/Vol] 18 pg/mL 0-[address] [facility] Urine bacteria detection by automated methodOrdered By: Ramesh Byrd on 04-12-2022 Bacteria Auto Ql (U) None seen None Seen [facility] Urine clarity by refractomet ry automatedOrdered By: Ramesh Byrd on 04-12-2022 Clarity Refractometry automated (U) Clear Clear [facility] Urine glucose measurement by automated test strip (mass/volume)Ordered By: Ramesh Byrd on 04-12-2022 Glucose Auto test strip (U) [Mass/Vol] Normal mg/dL Normal [facility] Urine hemoglobin detection b y automated test stripOrdered By: Ramesh Byrd on 04-12-2022 Hemoglobin Auto test strip Ql (U) 2+ Negative [facility] Urine leukocyte esterase det ection by automated test stripOrdered By: Ramesh Byrd on 04-12-2022 Leukocyte esterase Auto test strip Ql (U) Negative Negative [facility] Urobilinogen Auto test strip (U) [Mass/Vol]Ordered By: Ramesh Byrd on 04-12-2022 Urobilinogen (U) [Mass/Vol] Normal mg/dL Normal [facility] XR chest 2V*on 04-12-2022 XR chest 2V* [facility] [place] [address] XRay Report Signed Patient: Stephane Patterson MR#: [id number] 005 : 1955 Acct:[id number] Age/Sex: 66 / M ADM Date: 04/12/22 Loc: ER Room: Type: [facility] ER Attending Dr: Copies to: Ramesh [...] Jessica Cazares M.D.04/12/2022 11:53 AM Dictation Location: [place] [address] Transcribed By: [place] 04/12/22 1153 Dictated By: Jessica Cazares MD 04/12/22 1151 Signed By: 04/12/22 [address] [facility] pH Auto test strip (U)Ordere d By: Ramesh Byrd on 04-12-2022 pH (U) 6.5 [pH] 5.0-9.[address] [facility] Albumin [Mass/volume] in Ser um or PlasmaOrdered By: Lupe Hernandez on 04-09-2022 Albumin [Mass/Vol] 1.9 g/dL 3.2-5.5 [facility] Basophils Auto (Bld) [#/Vol] Ordered By: Lupe Hernandez on 04-09-2022 Basophils (Bld) [#/Vol] 0.1 10*3/uL 0.0-0.[address] [facility] Basophils/100 WBC Auto (Bld) Ordered By: Lupe Hernandez on 04-09-2022 Basophils/100 WBC (Bld) 1.3 % . [facility] Blood hemoglobin measurement (mass/volume)Ordered By: Lupe Hernandez on 04-09-2022 Hemoglobin (Bld) [Mass/Vol] 11.2 g/dL 13.0-17.[address] [facility] Blood leukocytes automated c ount (number/volume)Ordered By: Lupe Hernandez on 04-09-2022 WBC (Bld) [#/Vol] 5.4 10*3/uL 4.5-11.0 [facility] Creatinine and Glomerular fi ltration rate.predicted panel (S/P/Bld)Ordered By: Lupe Hernandez on 04-09-2022 Creatinine [Mass/Vol] 0.88 mg/dL 0.64-1.27 [facility] Eosinophils Auto (Bld) [#/Vo l]Ordered By: Lupe Hernandez on 04-09-2022 Eosinophils (Bld) [#/Vol] 0.3 10*3/uL 0.0-0.[address] [facility] Eosinophils/100 WBC Auto (Bl d)Ordered By: Lupe Hernandez on 04-09-2022 Eosinophils/100 WBC (Bld) 5.6 % . [facility] Erythrocyte distribution wid th Auto (RBC) [Ratio]Ordered By: Lupe Hernandez on 04-09-2022 Erythrocyte distribution width (RBC) [Ratio] 16.5 % 12.0-14.[address] [facility] Estimated glomerular filtrat ion rate (GFR) non- AmericanOrdered By: Lupe Hernandez on 04-09-2022 GFR/1.73 sq M.predicted among non-blacks MDRD (S/P/Bld) [Vol rate/Area] > 60 mL/Min [facility] Globulin Calc (S) [Mass/Vol] Ordered By: Lupe Hernandez on 04-09-2022 Globulin (S) [Mass/Vol] 4.2 g/dL [facility] Glucose Glucometer (BldC) [M ass/Vol]Ordered By: Lupe Hernandez on 04-09-2022 Glucose [Mass/Vol] 178 mg/dL [facility] Comment on above: Random Glucose Refer ence Range is dependent on time and content of last meal. Glucose of more than 200 mg/dL in a nonstressed, ambulatory subject supports the diagnosis of Diabetes Mellitus. Hematocrit Auto (Bld) [Volum e fraction]Ordered By: Lupe Hernandez on 04-09-2022 Hematocrit (Bld) [Volume fraction] 33.6 % 38.8-50.[address] [facility] Laboratory - Hematology and Cell countsOrdered By: Lupe Hernandez on 04-09-2022 Nucleated RBC/100 WBC (Bld) [Ratio] 0.2 % 0-0.[address] [facility] Lymphocytes Auto (Bld) [#/Vo l]Ordered By: Lupe Hernandez on 04-09-2022 Lymphocytes (Bld) [#/Vol] 1.0 10*3/uL 1.00-4.[address] [facility] Lymphocytes/100 WBC Auto (Bl d)Ordered By: Lupe Hernandez on 04-09-2022 Lymphocytes/100 WBC (Bld) 18.3 % . [facility] MCH Auto (RBC) [Entitic mass ]Ordered By: Lupe Hernandez on 04-09-2022 MCH (RBC) [Entitic mass] 31.1 pg 27.5-35.[address] [facility] MCHC Auto (RBC) [Mass/Vol]Or dered By: Lupe Hernandez on 04-09-2022 MCHC (RBC) [Mass/Vol] 33.5 g/dL 32.5-35.6 [facility] MCV Auto (RBC) [Entitic vol] Ordered By: Lupe Hernandez on 04-09-2022 MCV (RBC) [Entitic vol] 93.0 fL 83.5-101 [facility] Monocytes Auto (Bld) [#/Vol] Ordered By: Lupe Hernandez on 04-09-2022 Monocytes (Bld) [#/Vol] 0.6 10*3/uL 0.0-0.[address] [facility] Monocytes/100 WBC Auto (Bld) Ordered By: Lupe Hernandez on 04-09-2022 Monocytes/100 WBC (Bld) 11.0 % . [facility] Neutrophils Auto (Bld) [#/Vo l]Ordered By: Lupe Hernandez on 04-09-2022 Neutrophils (Bld) [#/Vol] 3.4 10*3/uL 1.8-7.[address] [facility] Neutrophils/100 WBC Auto (Bl d)Ordered By: Lupe Hernandez on 04-09-2022 Neutrophils/100 WBC (Bld) 63.8 % . [facility] No Panel InformationOrdered By: Lupe Hernandez on 04-09-2022 Bedside Glucose Comment Glu2: cleaned meter [facility] Estimated GFR () > 60 mL/Min [facility] Comment on above: GFR estimated refere nce range: According to KDOQI guidelines, <60 ml/min/1.73m2 is sufficient to diagnose a patient with chronic kidney disease. Pharmacy Creatinine Clearance (Chem 130.[address] [facility] Platelet mean volume Auto (B ld) [Entitic vol]Ordered By: Lupe Hernandez on 04-09-2022 Platelet mean volume (Bld) [Entitic vol] 7.6 fL 6.6-10.[address] [facility] Platelets Auto (Bld) [#/Vol] Ordered By: Lupe Hernandez on 04-09-2022 Platelets (Bld) [#/Vol] 214 10*3/uL 150-[address] [facility] Protein [Mass/volume] in Ser um or PlasmaOrdered By: Lupe Hernandez on 04-09-2022 Protein [Mass/Vol] 6.1 g/dL 6.1-7.9 [facility] RBC Auto (Bld) [#/Vol]Ordere d By: Lupe Hernandez on 04-09-2022 RBC (Bld) [#/Vol] 3.61 10*6/uL 3.90-5.60 [facility] Serum or plasma alanine vivas otransferase measurement without P-5'-P (enzymatic activiOrdered By: Lupe Hernandez on 04-09-2022 ALT No additional P-5'-P [Catalytic activity/Vol] 21 U/L 10-60 [facility] Serum or plasma albumin/glob ulin mass ratioOrdered By: Lupe Hernandez on 04-09-2022 Albumin/Globulin [Mass ratio] 0.5 {ratio} [facility] Serum or plasma alkaline dilan sphatase measurement (enzymatic activity/volume)Ordered By: Lupe Hernandez on 04-09-2022 ALP [Catalytic activity/Vol] 89 U/L 32-[address] [facility] Serum or plasma anion gap de terminationOrdered By: Lupe Hernandez on 04-09-2022 Anion gap [Moles/Vol] 8.4 mmol/L 6.0-15.0 [facility] Serum or plasma aspartate am inotransferase measurement (enzymatic activity/volume)Ordered By: Lupe Hernandez on 04-09-2022 AST [Catalytic activity/Vol] 27 U/L 10-[address] [facility] Serum or plasma calcium osbaldo urement (mass/volume)Ordered By: Lupe Hernandez on 04-09-2022 Calcium [Mass/Vol] 8.2 mg/dL 8.2-10.2 [facility] Serum or plasma chloride judith surement (moles/volume)Ordered By: Lupe Hernandez on 04-09-2022 Chloride [Moles/Vol] 98 mmol/L 95-114 [facility] Serum or plasma glucose osbaldo urement (mass/volume)Ordered By: Lupe Hernandez on 04-09-2022 Glucose [Mass/Vol] 150 mg/dL 70-100 [facility] Comment on above: ADA recommended refe rence range Random Glucose Reference Range is dependent on time and content of last meal. Glucose of more than 200 mg/dL in a nonstressed, ambulatory subject supports the diagnosis of Diabetes Mellitus. Serum or plasma potassium me asurement (moles/volume)Ordered By: Lupe Hernandez on 04-09-2022 Potassium [Moles/Vol] 3.4 mmol/L 3.5-5.1 [facility] Serum or plasma sodium measu rement (moles/volume)Ordered By: Lupe Hernandez on 04-09-2022 Sodium [Moles/Vol] 134 mmol/L 136-146 [facility] Serum or plasma total biliru bin measurement (mass/volume)Ordered By: Lupe Hernandez on 04-09-2022 Bilirubin [Mass/Vol] 0.7 mg/dL 0.3-1.2 [facility] Serum or plasma total carbon dioxide measurement (moles/volume)Ordered By: Lupe Hernandez on 04-09-2022 CO2 [Moles/Vol] 31.0 mmol/L 22.0-30.0 [facility] Serum or plasma urea nitroge n measurement (mass/volume)Ordered By: Lupe Hernandez on 04-09-2022 Urea nitrogen [Mass/Vol] 9 mg/dL [address] [facility] Bacterial blood cultureOrder ed By: Luke Moran on 04-07-2022 Bacteria identified Cx Nom (Bld) NO GROWTH [address] [facility] Laboratory - Chemistry and C hemistry - challengeOrdered By: Luke Moran on 04-04-2022 CO2 [Moles/Vol] 29.4 mmol/L 23.0-27.0 [facility] HCO3 (Bld) [Moles/Vol] 28.1 mmol/L 23.0-29.0 [facility] No Panel InformationOrdered By: Luke Moran on 04-04-2022 Arterial Blood Base Excess 3.4 mmol/L -3.0-3.[address] [facility] Arterial Blood Oxygen Content 6.4 mmol/L 6.6-9.[address] [facility] Arterial Blood Oxygen Saturation 92.1 % 95.0-100.[address] [facility] Arterial Blood Partial Pressure CO2 43.2 mm[Hg] 35.0-45.[address] [facility] Arterial Blood Partial Pressure O2 61.4 mm[Hg] 80.0-100.[address] [facility] Arterial Blood pH 7.43 7.35-7.45 [facility] Blood Gas Critical Value See comment [facility] Comment on above: Critical Value kaufman d on: 04/04/2022 at 09:33 Blood Gas Liter Flow 2 L/min [facility] Blood Gas Sample Site Left radial Fi [facility] FiO2 28 % [facility] Oxygen Delivery Device Nasal cannula [facility] Automated erythrocytes count in urine sediment (number/area)Ordered By: Jair Gabriel on 04-03-2022 RBC Auto (Urine sed) [#/Area] 3-4 [HPF] 0-[address] [facility] Automated leukocytes count i n urine sediment (number/area)Ordered By: Jair Gabriel on 04-03-2022 WBC Auto (Urine sed) [#/Area] None seen [HPF] 0-[address] [facility] Bilirubin Test strip Ql (U)O rdered By: Jair Gabriel on 04-03-2022 Bilirubin Ql (U) Negative Negative [facility] Color Auto (U)Ordered By: Tam Gabriel on 04-03-2022 Color (U) Yellow Yellow [facility] Hepatitis B virus surface Ag [Presence] in Serum or Plasma by ImmunoassayOrdered By: Luke Moran on 04-03-2022 HBV surface Ag IA Ql Negative Negative [facility] Comment on above: Performed at: [address] [id number] Rn Ent: Genaro Becerril PhD, Phone: [phone] IgA [Mass/volume] in Serum o r PlasmaOrdered By: Luke Moran on 04-03-2022 IgA [Mass/Vol] 697 mg/dL 61-[address] [facility] IgG [Mass/volume] in Serum o r PlasmaOrdered By: Luke Moran on 04-03-2022 IgG [Mass/Vol] 1107 mg/dL 603-[address] [facility] IgM [Mass/volume] in Serum o r PlasmaOrdered By: Luke Moran on 04-03-2022 IgM [Mass/Vol] 91 mg/dL 20-[address] [facility] Comment on above: Performed at: [employer] [address] [id number] Rn Ent: Genaro Becerril PhD, Phone: [phone] Immunofixation for UrineOrde red By: Luke Moran on 04-03-2022 Interpretation Immunofixation (U) [Interp] See comment . [facility] Comment on above: No monoclonality det ected. Performed at: [employer] [address] [id number] Rn Ent: Genaro Becerril PhD, Phone: [employer] Immunoglobulin light chains. kappa.free [Mass/volume] in SerumOrdered By: Luke Moran on 04-03-2022 Immunoglobulin light chains.kappa.free (S) [Mass/Vol] 93.9 mg/L 3.3-19.[address] [facility] Immunoglobulin light chains. kappa.free/Immunoglobulin light chains.lambda.free [MassOrdered By: Luke Moran on 04-03-2022 Immunoglobulin light chains.kappa.free/Immuno globulin light chains.lambda.free (S) [Mass ratio] 1.52 0.26-1.[address] [facility] Comment on above: Performed at: [facility] [employer] [address] [id number] Rn Ent: Genaro Becerril PhD, Phone: [phone] Immunoglobulin light chains. lambda.free [Mass/volume] in Serum or PlasmaOrdered By: Luke Moran on 04-03-2022 Immunoglobulin light chains.lambda.free [Mass/Vol] 61.6 mg/L 5.7-26.[address] [facility] Ketones Auto test strip (U) [Mass/Vol]Ordered By: Jair Gabriel on 04-03-2022 Ketones (U) [Mass/Vol] Negative Negative Fi [facility] Laboratory - UrinalysisOrder ed By: Jair Gabriel on 04-03-2022 Hyaline casts LM Ql (Urine sed) 0-8 [LPF] 0-[address] [facility] Nitrite Test strip Ql (U)Ord ered By: Jair Gabriel on 04-03-2022 Nitrite Ql (U) Negative Negative [facility] No Panel InformationOrdered By: Luke Moran on 04-03-2022 Hepatitis C Interpretation See comment . [facility] Comment on above: Negative Not infected with HCV, unless recent infection is suspected or other evidence exists to indicate HCV infection. Hepatitis C RNA Quantitative N/A [facility] Serum Immunofixation See comment . [facility] Comment on above: Immunofixation shows IgG monoclonal protein with lambda light chain specificity. Protein Auto test strip (U) [Mass/Vol]Ordered By: Jair Gabriel on 04-03-2022 Protein (U) [Mass/Vol] Negative Negative Fi [facility] Random cortisol measurementO rdered By: Luke Moran on 04-03-2022 Cortisol [Mass/Vol] 5.8 ug/dL [facility] Comment on above: Reference range: AM 6 - 24 ug/dl PM <10 ug/dl Serum hepatitis B virus surf calin antibody detectionOrdered By: Luke Moran on 04-03-2022 HBV surface Ab Ql (S) Reactive . [facility] Comment on above: Non Reactive: Incons istent with immunity, less than 10 mIU/mL Reactive: Consistent with immunity, greater than 9.9 mIU/mL --- 04/04/22 0736 --- Hep B Cyndee Ab previously reported as: Non Reactive Non Reactive: Inconsistent with immunity, less than 10 mIU/mL Reactive: Consistent with immunity, greater than 9.9 mIU/mL Serum or plasma hepatitis C virus antibody signal/cutoff ratio by immunoassay (relatiOrdered By: Luke Moran on 04-03-2022 HCV Ab Signal/Cutoff IA [Rel units/Vol] 0.1 s/co ratio 0.0-0.[address] [facility] Comment on above: --- 04/04/22 0736 -- - Hep C Ab previously reported as: <0.1 s/co ratio Specific gravity Auto test s trip (U) [Rel density]Ordered By: Jair Gabriel on 04-03-2022 Specific gravity (U) [Rel density] 1.035 1.001-1.[address] [facility] Squamous epithelial cells de tection in urine sediment by light microscopyOrdered By: Jair Gabriel on 04-03-2022 Epithelial cells.squamous LM Ql (Urine sed) None seen [HPF] 0-[address] [facility] TSH DL <= 0.005 mIU/L QnOrde red By: Luke Moran on 04-03-2022 TSH Qn 22.19 m[IU]/L 0.45-5.[address] [facility] Urine bacteria detection by automated methodOrdered By: Jair Gabriel on 04-03-2022 Bacteria Auto Ql (U) None seen None Seen [facility] Urine clarity by refractomet ry automatedOrdered By: Jair Gabriel on 04-03-2022 Clarity Refractometry automated (U) Clear Clear [facility] Urine glucose measurement by automated test strip (mass/volume)Ordered By: Jair Gabriel on 04-03-2022 Glucose Auto test strip (U) [Mass/Vol] 100 mg/dL Normal [facility] Urine hemoglobin detection b y automated test stripOrdered By: Jair Gabriel on 04-03-2022 Hemoglobin Auto test strip Ql (U) 3+ Negative [facility] Urine leukocyte esterase det ection by automated test stripOrdered By: Jair Gabriel on 04-03-2022 Leukocyte esterase Auto test strip Ql (U) Negative Negative [facility] Urobilinogen Auto test strip (U) [Mass/Vol]Ordered By: Jair Gabriel on 04-03-2022 Urobilinogen (U) [Mass/Vol] Normal mg/dL Normal [facility] pH Auto test strip (U)Ordere d By: Jair Gabriel on 04-03-2022 pH (U) 5.0 [pH] 5.0-9.[address] [facility] Activated partial thrombopla stin time (aPTT) in platelet poor plasma by coagulation aOrdered By: Jair Gabriel on 04-02-2022 aPTT Coag (PPP) [Time] 24.8 s 25.1-36.5 [facility] COVID-19 Positive/NegativeOr dered By: Jair Gabriel on 04-02-2022 SARS-CoV-2 (COVID-19) N gene MANJIT+probe Ql (Resp) Negative Negative [facility] Comment on above: Testing for SARS-CoV -2 by RT-PCR This test was developed and its performance characteristics determined by [employer] and validated at the [facility]. This test has not been FDA [...] SOFIAOrdered By: Tam Gabriel on 04-02-2022 SARS-CoV+SARS-CoV-2 (COVID-19) Ag IA.rapid Ql (Resp) Negative Negative [facility] Comment on above: This is a duplicate Cristal SARS Antigen (GONZALO) result to be used for statistical tracking purpose only. Laboratory - Chemistry and C hemistry - challengeOrdered By: Jair Gabriel on 04-02-2022 Natriuretic peptide B (Bld) [Mass/Vol] 55.0 pg/mL 5-[address] [facility] Laboratory - CoagulationOrde red By: Jair Gabriel on 04-02-2022 PT Coag (PPP) [Time] 11.9 s 9.0-12.9 [facility] No Panel InformationOrdered By: Luke Moran on 04-02-2022 D-Dimer Quantitative (PE/DVT) 2825 ng/mL 0-[address] [facility] Comment on above: The reference range [...] Jair Gabriel on 04-02-2022 SARS Antigen (LFIA) [facility] Platelet poor plasma interna tional normalized ratio (INR) by coagulation assay (relatOrdered By: Jair Gabriel on 04-02-2022 INR Coag (PPP) [Relative time] 1.1 {INR} [facility] Comment on above: INR Therapeutic Rang [...] Jair Gabriel on 04-02-2022 Troponin I.cardiac High sensitivity method [Mass/Vol] 26 pg/mL 0-[address] [facility] Albumin [Mass/volume] in Ser um or PlasmaOrdered By: Sarah Osuna on 03-16-2022 Albumin [Mass/Vol] 1.9 g/dL 3.2-5.5 [facility] Creatinine and Glomerular fi ltration rate.predicted panel (S/P/Bld)Ordered By: Sarah Osuna on 03-16-2022 Creatinine [Mass/Vol] 1.27 mg/dL 0.64-1.27 [facility] Estimated glomerular filtrat ion rate (GFR) non- AmericanOrdered By: Sarah Osuna on 03-16-2022 GFR/1.73 sq M.predicted among non-blacks MDRD (S/P/Bld) [Vol rate/Area] 57 mL/Min [facility] Glucose Glucometer (BldC) [M ass/Vol]Ordered By: Xin Phan on 03-16-2022 Glucose [Mass/Vol] 377 mg/dL [facility] Comment on above: Random Glucose Refer ence Range is dependent on time and content of last meal. Glucose of more than 200 mg/dL in a nonstressed, ambulatory subject supports the diagnosis of Diabetes Mellitus. No Panel InformationOrdered By: Sarah Osuna on 03-16-2022 Estimated GFR () > 60 mL/Min [facility] Comment on above: GFR estimated refere nce range: According to KDOQI guidelines, <60 ml/min/1.73m2 is sufficient to diagnose a patient with chronic kidney disease. Pharmacy Creatinine Clearance (Chem 90.[address] [facility] Serum or plasma calcium osbaldo urement (mass/volume)Ordered By: Sarah Osuna on 03-16-2022 Calcium [Mass/Vol] 8.4 mg/dL 8.2-10.2 [facility] Serum or plasma chloride judith surement (moles/volume)Ordered By: Sarah Osuna on 03-16-2022 Chloride [Moles/Vol] 99 mmol/L 95-114 [facility] Serum or plasma glucose osbaldo urement (mass/volume)Ordered By: Sarah Osuna on 03-16-2022 Glucose [Mass/Vol] 265 mg/dL 70-100 [facility] Comment on above: Delta: 480 on ADA recommended reference range Random Glucose Reference Range is dependent on time and content of last meal. Glucose of more than 200 mg/dL in a nonstressed, ambulatory subject supports the diagnosis of Diabetes Mellitus. Serum or plasma potassium me asurement (moles/volume)Ordered By: Xin Phan on 03-16-2022 Potassium [Moles/Vol] 4.0 mmol/L 3.5-5.1 [facility] Serum or plasma sodium measu rement (moles/volume)Ordered By: Sarah Osuna on 03-16-2022 Sodium [Moles/Vol] 132 mmol/L 136-146 [facility] Serum or plasma total carbon dioxide measurement (moles/volume)Ordered By: Sarah Osuna on 03-16-2022 CO2 [Moles/Vol] 25.4 mmol/L 22.0-30.0 [facility] Serum or plasma urea nitroge n measurement (mass/volume)Ordered By: Sarah Osuna on 03-16-2022 Urea nitrogen [Mass/Vol] 24 mg/dL 9-[address] [facility] Serum phospholipid phosphoru s measurement (mass/volume)Ordered By: Xin Phan on 03-16-2022 Phospholipid phosphorus (S) [Mass/Vol] 2.0 mg/dL 2.5-4.[address] [facility] No Panel InformationOrdered By: Xin Phan on 03-15-2022 Bedside Glucose Comment See comment [facility] Comment on above: Glu2: WILL NOTIFY DR /RN Bedside Glucose #2 Comment Cleaned meter [facility] Automated erythrocytes count in urine sediment (number/area)Ordered By: Sarah Osuna on 03-14-2022 RBC Auto (Urine sed) [#/Area] 0-1 [HPF] 0-[address] [facility] Automated leukocytes count i n urine sediment (number/area)Ordered By: Sarah Osuna on 03-14-2022 WBC Auto (Urine sed) [#/Area] 0-1 [HPF] 0-[address] [facility] Basophils Auto (Bld) [#/Vol] Ordered By: Leah Huang on 03-14-2022 Basophils (Bld) [#/Vol] 0.0 10*3/uL 0.0-0.[address] [facility] Basophils/100 WBC Auto (Bld) Ordered By: Leah Huang on 03-14-2022 Basophils/100 WBC (Bld) 0.2 % . [facility] Bilirubin Auto test strip Ql (U)Ordered By: Sarah Osuna on 03-14-2022 Bilirubin Ql (U) Negative Negative [facility] Blood hemoglobin measurement (mass/volume)Ordered By: Leah Huang on 03-14-2022 Hemoglobin (Bld) [Mass/Vol] 11.6 g/dL 13.0-17.[address] [facility] Blood leukocytes automated c ount (number/volume)Ordered By: Leah Huang on 03-14-2022 WBC (Bld) [#/Vol] 6.0 10*3/uL 4.5-11.0 [facility] Creatinine [Mass/volume] in UrineOrdered By: Sarah Osuna on 03-14-2022 Creatinine (U) [Mass/Vol] 76.9 mg/dL [facility] Comment on above: No reference range e stablished Eosinophils Auto (Bld) [#/Vo l]Ordered By: Leah Huang on 03-14-2022 Eosinophils (Bld) [#/Vol] 0.1 10*3/uL 0.0-0.[address] [facility] Eosinophils/100 WBC Auto (Bl d)Ordered By: Leah Huang on 03-14-2022 Eosinophils/100 WBC (Bld) 1.4 % . [facility] Erythrocyte distribution wid th Auto (RBC) [Ratio]Ordered By: Leah Huang on 03-14-2022 Erythrocyte distribution width (RBC) [Ratio] 15.8 % 12.0-14.[address] [facility] Globulin Calc (S) [Mass/Vol] Ordered By: Leah Huang on 03-14-2022 Globulin (S) [Mass/Vol] 3.8 g/dL [facility] Glucose mean value [Mass/vol ume] in Blood Estimated from glycated hemoglobinOrdered By: Leah Huang on 03-14-2022 Average glucose Estimated from glycated hemoglobin (Bld) [Mass/Vol] 329 mg/dL [facility] Hematocrit Auto (Bld) [Volum e fraction]Ordered By: Leah Huang on 03-14-2022 Hematocrit (Bld) [Volume fraction] 35.1 % 38.8-50.[address] [facility] Hemoglobin A1c percentageOrd ered By: Leah Huang on 03-14-2022 HbA1c (Bld) [Mass fraction] 13.1 % 4.3-5.[address] [facility] Comment on above: Increased risk for d iabetes: 5.7 - 6.4 diabetes: >6.4 glycemic control for adults with diabetes: <7.0 Ketones Auto test strip (U) [Mass/Vol]Ordered By: Sarah Osuna on 03-14-2022 Ketones (U) [Mass/Vol] Negative Negative [facility] Laboratory - Hematology and Cell countsOrdered By: Leah Huang on 03-14-2022 Nucleated RBC/100 WBC (Bld) [Ratio] 0.1 % 0-0.[address] [facility] Laboratory - UrinalysisOrder ed By: Sarah Osuna on 03-14-2022 Hyaline casts LM Ql (Urine sed) 0-8 [LPF] 0-[address] [facility] Lymphocytes Auto (Bld) [#/Vo l]Ordered By: Leah Huang on 03-14-2022 Lymphocytes (Bld) [#/Vol] 1.4 10*3/uL 1.00-4.[address] [facility] Lymphocytes/100 WBC Auto (Bl d)Ordered By: Leah Huang on 03-14-2022 Lymphocytes/100 WBC (Bld) 22.7 % . [facility] MCH Auto (RBC) [Entitic mass ]Ordered By: Leah Huang on 03-14-2022 MCH (RBC) [Entitic mass] 29.9 pg 27.5-35.[address] [facility] MCHC Auto (RBC) [Mass/Vol]Or dered By: Leah Huang on 03-14-2022 MCHC (RBC) [Mass/Vol] 33.0 g/dL 32.5-35.6 [facility] MCV Auto (RBC) [Entitic vol] Ordered By: Leah Huang on 03-14-2022 MCV (RBC) [Entitic vol] 90.4 fL 83.5-101 [facility] Monocytes Auto (Bld) [#/Vol] Ordered By: Leah Huang on 03-14-2022 Monocytes (Bld) [#/Vol] 0.5 10*3/uL 0.0-0.[address] [facility] Monocytes/100 WBC Auto (Bld) Ordered By: Leah Huang on 03-14-2022 Monocytes/100 WBC (Bld) 9.0 % . [facility] Neutrophils Auto (Bld) [#/Vo l]Ordered By: Leah Huang on 03-14-2022 Neutrophils (Bld) [#/Vol] 4.0 10*3/uL 1.8-7.[address] [facility] Neutrophils/100 WBC Auto (Bl d)Ordered By: Leah Huang on 03-14-2022 Neutrophils/100 WBC (Bld) 66.7 % . [facility] Platelet mean volume Auto (B ld) [Entitic vol]Ordered By: Leah Huang on 03-14-2022 Platelet mean volume (Bld) [Entitic vol] 8.9 fL 6.6-10.[address] [facility] Platelets Auto (Bld) [#/Vol] Ordered By: Leah Huang on 03-14-2022 Platelets (Bld) [#/Vol] 143 10*3/uL 150-[address] [facility] Protein Auto test strip (U) [Mass/Vol]Ordered By: Sarah Osuna on 03-14-2022 Protein (U) [Mass/Vol] Negative Negative [facility] Protein [Mass/volume] in Ser um or PlasmaOrdered By: Leah Huang on 03-14-2022 Protein [Mass/Vol] 5.8 g/dL 6.1-7.9 [facility] Protein [Mass/volume] in Uri neOrdered By: Sarah Osuna on 03-14-2022 Protein (U) [Mass/Vol] 13 mg/dL 0-9 [facility] RBC Auto (Bld) [#/Vol]Ordere d By: Leah Huang on 03-14-2022 RBC (Bld) [#/Vol] 3.88 10*6/uL 3.90-5.60 [facility] Serum or plasma alanine vivas otransferase measurement without P-5'-P (enzymatic activiOrdered By: Leah Huang on 03-14-2022 ALT No additional P-5'-P [Catalytic activity/Vol] 35 U/L 10-60 [facility] Serum or plasma albumin/glob ulin mass ratioOrdered By: Leah Huang on 03-14-2022 Albumin/Globulin [Mass ratio] 0.5 {ratio} [facility] Serum or plasma alkaline dilan sphatase measurement (enzymatic activity/volume)Ordered By: Leah Huang on 03-14-2022 ALP [Catalytic activity/Vol] 120 U/L 32-[address] [facility] Serum or plasma aspartate am inotransferase measurement (enzymatic activity/volume)Ordered By: Leah Huang on 03-14-2022 AST [Catalytic activity/Vol] 36 U/L 10-[address] [facility] Serum or plasma total biliru bin measurement (mass/volume)Ordered By: Leah Huang on 03-14-2022 Bilirubin [Mass/Vol] 1.0 mg/dL 0.3-1.2 [facility] Squamous epithelial cells de tection in urine sediment by light microscopyOrdered By: Sarah Osuna on 03-14-2022 Epithelial cells.squamous LM Ql (Urine sed) None seen [HPF] 0-[address] [facility] Urea nitrogen [Mass/volume] in UrineOrdered By: Leah Huang on 03-14-2022 Urea nitrogen (U) [Mass/Vol] 454 mg/dL Not Estab. [facility] Comment on above: Performed at: [place] [id number] Rn Ent: Genaro Becerril PhD, Phone: [phone] Urine appearanceOrdered By: Sarah Osuna on 03-14-2022 Appearance (U) Clear Clear [facility] Urine bacteria detection by automated methodOrdered By: Sarah Osuna on 03-14-2022 Bacteria Auto Ql (U) None seen None Seen [facility] Urine colorOrdered By: Sarah Osuna on 03-14-2022 Color (U) Yellow Yellow [facility] Urine glucose measurement by automated test strip (mass/volume)Ordered By: Sarah Osuna on 03-14-2022 Glucose Auto test strip (U) [Mass/Vol] >=1000 mg/dL Normal [facility] Urine hemoglobin detection b y automated test stripOrdered By: Sarah Osuna on 08-04-2022 Hemoglobin Auto test strip Ql (U) 2+ Negative [facility] Urine leukocyte esterase det ection by automated test stripOrdered By: Sarah Osuna on 03-14-2022 Leukocyte esterase Auto test strip Ql (U) Negative Negative [facility] Urine nitrite detection by a utomated test stripOrdered By: Sarah Osuna on 03-14-2022 Nitrite Auto test strip Ql (U) Negative Negative [facility] Urine protein/creatinine rat ioOrdered By: Sarah Osuna on 03-14-2022 Protein/Creatinine (U) [Ratio] 169 mg/g{Cre} 0-[address] [facility] Urine sodium measurement (mo les/volume)Ordered By: Leah Huang on 03-14-2022 Sodium (U) [Moles/Vol] 20 mmol/L [facility] Comment on above: No reference range e stablished Urobilinogen Auto test strip (U) [Mass/Vol]Ordered By: Sarah Osuna on 03-14-2022 Urobilinogen (U) [Mass/Vol] Normal mg/dL Normal [facility] Yeast detection in urine sed iment by light microscopyOrdered By: Sarah Osuna on 03-14-2022 Yeast LM Ql (Urine sed) Budding yeast [HPF] Non e Seen [facility] Comment on above: 1+ BUDDING YEAST pH Auto test strip (U)Ordere d By: Sarah Osuna on 03-14-2022 pH (U) 1.020 [pH] 1.001-1.[address] [facility] pH (U) 5.5 [pH] 5.0-9.[address] [facility] POINT OF CARE GLUCOSEon 01-10 Glucose [Mass/Vol] 161 mg/dL Critically high 74-106 [facility] Comment on above: Performed By: #### T STEFF, BMP #### [facility] [address] [place] [address] [id number] [address] Ladan Diehl POINT OF CARE GLUCOSEon 01-09 Glucose [Mass/Vol] 358 mg/dL Critically high 74-106 [facility] Comment on above: Performed By: #### A 1C #### [facility] [address] [address] [address] Ladan Diehl Glucose [Mass/Vol] 279 mg/dL Critically high 74-106 [facility] Comment on above: Performed By: #### A 1C #### [facility] [address] [place] [address] Dr. Ladan Diehl Glucose [Mass/Vol] 247 mg/dL Critically high -106 [facility] Comment on above: Performed By: #### T SH, BMP #### [facility] [address] [place] [address] Dr. Ladan Diehl Glucose [Mass/Vol] 357 mg/dL Critically high 74-106 [facility] Comment on above: Performed By: #### A 1C #### [facility] [address] [place] [address] Dr. Ladan Diehl PROF CHEM 8 (BAS METB)on Anion gap [Moles/Vol] 11.1 mmol/L Normal [facility] Comment on above: Performed By: #### T STEFF, BMP #### [facility] [address] [place] [address] Dr. Ladan Diehl Calcium [Mass/Vol] 8.8 mg/dL Normal 8.5-10.1 [facility] Comment on above: Performed By: #### T STEFF, BMP #### [facility] [address] [place] [address] Dr. Ladan Diehl Chloride [Moles/Vol] 99 mmol/L Normal 98-107 [facility] Comment on above: Performed By: #### T STEFF, BMP #### [facility] [address] [place] [address] Dr. Ladan Diehl CO2 [Moles/Vol] 27.2 mmol/L Normal 21.0-32.0 [facility] Comment on above: Performed By: #### T SH, BMP #### [facility] [address] [place] [address] Dr. Ladan Diehl Creatinine [Mass/Vol] 1.59 mg/dL Critically high 0.70-1.30 [facility] Comment on above: Performed By: #### T STEFF, BMP #### [facility] [address] [address] [address] Ladan Diehl EGFR-AF HONG KONGER 53 mL/min/1.73m2 Critically low >=60 [facility] Comment on above: Performed By: #### T SH, BMP #### [facility] [address] [address] [address] Ladan Diehl EGFR-NON AF [place] 44 mL/min/1.73m2 Critically low >=60 [facility] Comment on above: Performed By: #### T SH, BMP #### [facility] [address] [place] [address] Dr. Ladan Diehl Glucose [Mass/Vol] 284 mg/dL Critically high 74-106 [facility] Comment on above: Performed By: #### T SH, BMP #### [facility] [address] [place] [address] Dr. Ladan Diehl Potassium [Moles/Vol] 4.2 mmol/L Normal 3.5-5.1 [facility] Comment on above: Performed By: #### T SH, BMP #### [facility] [address] [place] [address] Dr. Ladan Diehl Sodium [Moles/Vol] 133 mmol/L Critically low 136-145 [facility] Comment on above: Performed By: #### T SH, BMP #### [facility] [address] [place] [address] Dr. Ladan Diehl Urea nitrogen [Mass/Vol] 22.0 mg/dL Critically high 7.0-18 .0 [facility] Comment on above: Performed By: #### T SH, BMP #### [facility] [address] [place] [address] Dr. Ladan Diehl Urea nitrogen/Creatinine [Mass ratio] 13.8 mg/mg Normal [facility] Comment on above: Performed By: #### T SH, BMP #### [facility] [address] [place] [address] Dr. Ladan Diehl TROPONIN, HIGH SENSITIVITYon 01-24-2022 HSTROP 13.7 pg/mL Normal 4.0-76.1 [facility] Comment on above: Result Comment: CUT- OFF POINTS HAVE BEEN ESTABLISHED BASED ON THE FOURTH UNIVERSAL DEFINITIONS OF MYOCARDIAL INFARCTION. THE UPPER REFERENCE LIMIT (URL) OF TROPONIN, DEFINED THE 99TH PERCENTILE OF cTnI DISTRIBUTION IN A REFERENCE POPULATION, HAS BEEN CONFIRMED THE DECISION THRESHOLD FOR [place] DIAGNOSIS. Performed By: #### H STROPN #### [facility] [address] [address] [address] Ladan Diehl TSHon 01-24-2022 TSH 0.381 uIU/mL Normal 0.358-3.740 [facility] Comment on above: Performed By: #### T STEFF, BMP #### [facility] [address] [address] [address] Ladan Diehl US LIT DOP LEG [...] by: CAROL YIP Date: 2022-01-24 09:51 Normal [facility] BNPon 01-23-2022 Natriuretic peptide B (Bld) [Mass/Vol] 262.0 pg/mL Normal <=900.0 [facility] Comment on above: Performed By: #### A 1C #### [facility] [address] [place] [address] Dr. Ladan Diehl CBC AUTO DIFFon 01-23-2022 BASO # 0.1 103/ul Normal 0.0-0.1 [facility] Comment on above: Performed By: #### T SH, BMP #### [facility] [address] [place] [address] Dr. Ladan Diehl Basophils/100 WBC (Bld) 0.8 % Normal 0.2-2.0 [facility] Comment on above: Performed By: #### T SH, BMP #### [facility] [address] [place] [address] Dr. Ladan Diehl EO # 0.3 103/ul Normal 0.0-0.7 [facility] Comment on above: Performed By: #### T SH, BMP #### [facility] [address] [place] [address] Dr. Ladan Diehl Eosinophils/100 WBC (Bld) 4.4 % Normal 0.9-7.0 [facility] Comment on above: Performed By: #### T SH, BMP #### [facility] [address] [place] [address] Dr. Ladan Diehl Erythrocyte distribution width (RBC) [Ratio] 14.0 % Normal 11.0-15.0 [facility] Comment on above: Performed By: #### T SH, BMP #### [facility] [address] [place] [address] Dr. Ladan Diehl Hematocrit (Bld) [Volume fraction] 38.3 % Critically low 42.0-54.0 [facility] Comment on above: Performed By: #### T SH, BMP #### [facility] [address] [place] [address] Dr. Ladan Diehl Hemoglobin (Bld) [Mass/Vol] 12.0 g/dL Critically low 14.0-18.0 [facility] Comment on above: Performed By: #### T SH, BMP #### [facility] [address] [place] [address] Dr. Ladan Diehl IG # 0.03 10e3/ul Normal 0.00-0.03 [facility] Comment on above: Performed By: #### T SH, BMP #### [facility] [address] [place] [address] Dr. Ladan Diehl IG % 0.5 % Normal 0.0-0.5 [facility] Comment on above: Performed By: #### T SH, BMP #### [facility] [address] [place] [address] Dr. Ladan Diehl LYMPH # 1.2 103/ul Normal 1.2-3.8 [facility] Comment on above: Performed By: #### T SH, BMP #### [facility] [address] [place] [address] Dr. Ladan Diehl Lymphocytes/100 WBC (Bld) 20.2 % Critically low 20.5-60.0 [facility] Comment on above: Performed By: #### T SH, BMP #### [facility] [address] [place] [address] Dr. Ladan Diehl MANUAL DIFF REQ NO Normal [facility] Comment on above: Performed By: #### T SH, BMP #### [facility] [address] [place] [address] Dr. Ladan Diehl MCH (RBC) [Entitic mass] 29.6 pg Normal 25.9-34.0 [facility] Comment on above: Performed By: #### T SH, BMP #### [facility] [address] [place] [address] Dr. Ladan Diehl MCHC (RBC) [Mass/Vol] 31.3 g/dL Normal 29.9-35.2 [facility] Comment on above: Performed By: #### T SH, BMP #### [facility] [address] [place] [address] Dr. Ladan Diehl MCV (RBC) [Entitic vol] 94.6 fL Critically high 80.0-94 .0 [facility] Comment on above: Performed By: #### T SH, BMP #### [facility] [address] [place] [address] Dr. Ladan Diehl MONO # 0.7 103/ul Normal 0.3-0.8 [facility] Comment on above: Performed By: #### T SH, BMP #### [facility] [address] [place] [address] Dr. Ladan Diehl Monocytes/100 WBC (Bld) 10.7 % Normal 1.7-12.0 [facility] Comment on above: Performed By: #### T SH, BMP #### [facility] [address] [place] [address] Dr. Ladan Diehl NEUT # 3.9 103/ul Normal 1.4-6.5 [facility] Comment on above: Performed By: #### T SH, BMP #### [facility] [address] [place] [address] Dr. Ladan Diehl Neutrophils/100 WBC (Bld) 63.4 % Normal 43.0-75.0 [facility] Comment on above: Performed By: #### T SH, BMP #### [facility] [address] [place] [address] Dr. Ladan Diehl Platelet mean volume (Bld) [Entitic vol] 10.0 fL Normal 9.5-13.5 [facility] Comment on above: Performed By: #### T SH, BMP #### [facility] [address] [place] [address] Dr. Ladan Diehl PLT 171 103/ul Normal 150-450 [facility] Comment on above: Performed By: #### T SH, BMP #### [facility] [address] [place] [address] Dr. Ladan Diehl RBC 4.05 106/ul Critically low 4.70-6.10 [facility] Comment on above: Performed By: #### T SH, BMP #### [facility] [address] [place] [address] Dr. Ladan Diehl WBC 6.1 103/ul Normal 4.0-11.0 [facility] Comment on above: Performed By: #### T SH, BMP #### [facility] [address] [place] [address] Dr. Ladan Diehl CTA CHEST WO W CONon 06-15-2 022 CTA CHEST WO W CON EXAM: [...] XIN BUI Date: 2022-01-23 19:35 Normal [facility] Covid-19 PCR (CVDTB)on 01-09 SARS-CoV-2 (COVID-19) RNA MANJIT+probe Ql (Unsp spec) Not detected Normal NOT DETECTED [facility] Comment on above: Result Comment: When diagnostic [...] for this test is supported by the [place] of [employer] and Human Service's declaration that [...] used). Performed By: #### A 1C #### [facility] [address] [address] [address] Ladan Diehl LACTATE/LACTIC ACIDon 2021 Lactate [Moles/Vol] 1.6 mmol/L Normal 0.4-1.9 [facility] Comment on above: Performed By: #### L ACT #### [facility] [address] [place] [address] Dr. Ladan Diehl PROF 14(COMP METB)on 022 Albumin [Mass/Vol] 2.7 g/dL Critically low 3.4-5.0 [facility] Comment on above: Performed By: #### A 1C #### [facility] [address] [place] [address] Dr. Ladan Diehl Albumin/Globulin [Mass ratio] 0.5 {ratio} Normal [facility] Comment on above: Performed By: #### A 1C #### [facility] [address] [place] [address] Dr. Ladan Diehl ALP [Catalytic activity/Vol] 120 U/L Critically high 46-116 [facility] Comment on above: Performed By: #### A 1C #### [facility] [address] [place] [address] Dr. Ladan Diehl ALT [Catalytic activity/Vol] 23 U/L Normal 16-63 [facility] Comment on above: Performed By: #### A 1C #### [facility] [address] [place] [address] Dr. Ladan Diehl Anion gap [Moles/Vol] 10.3 mmol/L Normal [facility] Comment on above: Performed By: #### A 1C #### [facility] [address] [place] [address] Dr. Ladan Diehl AST [Catalytic activity/Vol] 29 U/L Normal 15-37 [facility] Comment on above: Performed By: #### A 1C #### [facility] [address] [place] [address] Dr. Ladan Diehl Bilirubin [Mass/Vol] 1.0 mg/dL Normal 0.2-1.0 [facility] Comment on above: Performed By: #### A 1C #### [facility] [address] [place] [address] Dr. Ladan Diehl Calcium [Mass/Vol] 8.8 mg/dL Normal 8.5-10.1 [facility] Comment on above: Performed By: #### A 1C #### [facility] [address] [address] [address] Ladan Diehl Chloride [Moles/Vol] 101 mmol/L Normal 98-107 [facility] Comment on above: Performed By: #### A 1C #### [facility] [address] [place] [address] Dr. Ladan Diehl CO2 [Moles/Vol] 30.8 mmol/L Normal 21.0-32.0 [facility] Comment on above: Performed By: #### A 1C #### [facility] [address] [place] [address] Dr. Ladan Diehl Creatinine [Mass/Vol] 1.40 mg/dL Critically high 0.70-1.30 [facility] Comment on above: Performed By: #### A 1C #### [facility] [address] [place] [address] Dr. Ladan Diehl EGFR-AF [place]ER >60 Normal >=60 [facility] Comment on above: Performed By: #### A 1C #### [facility] [address] [place] [address] Dr. Ladan Diehl EGFR-NON AF [place] 51 mL/min/1.73m2 Critically low >=60 [facility] Comment on above: Performed By: #### A 1C #### [facility] [address] [place] [address] Dr. Ladan Diehl Globulin (S) [Mass/Vol] 5.3 g/dL Normal [facility] Comment on above: Performed By: #### A 1C #### [facility] [address] [place] [address] Dr. Ladan Diehl Glucose [Mass/Vol] 125 mg/dL Critically high 74-106 [facility] Comment on above: Performed By: #### A 1C #### [facility] [address] [place] [address] Dr. Ladan Diehl Potassium [Moles/Vol] 4.1 mmol/L Normal 3.5-5.1 [facility] Comment on above: Performed By: #### A 1C #### [facility] [address] [place] [address] Dr. Ladan Diehl Protein [Mass/Vol] 8.0 g/dL Normal 6.4-8.2 [facility] Comment on above: Performed By: #### A 1C #### [facility] [address] [place] [address] Dr. Ladan Diehl Sodium [Moles/Vol] 138 mmol/L Normal 136-145 [facility] Comment on above: Performed By: #### A 1C #### [facility] [address] [place] [address] Dr. Ladan Diehl Urea nitrogen [Mass/Vol] 20.0 mg/dL Critically high 7.0-18 .0 [facility] Comment on above: Performed By: #### A 1C #### [facility] [address] [place] [address] Dr. Ladan Diehl Urea nitrogen/Creatinine [Mass ratio] 14.3 mg/mg Normal [facility] Comment on above: Performed By: #### A 1C #### [facility] [address] [place] [address] Dr. Ladan Diehl PROTIMEon 01-23-2022 INR Coag (PPP) [Relative time] 1.02 {INR} Normal [facility] Comment on above: Performed By: #### P T, PTT #### [facility] [address] [place] [address] Dr. Ladan Diehl INR GUIDELINES SEE BELOW Normal [facility] Comment on above: Result Comment: KALI RED INR: 2.0 - 3.0 CONDITIONS NOT LISTED BELOW 2.5 - 3.5 FOR PROSTHETIC HEART VALVE REPLACEMENT 2.5 - 3.5 RECURRENT THROMBOSIS Performed By: #### P T, PTT #### [facility] [address] [place] [address] Dr. Ladan Diehl PT Coag (PPP) [Time] 11.0 s Normal 9.0-11.6 [facility] Comment on above: Performed By: #### P T, PTT #### [facility] [address] [place] [address] Dr. Ladan Diehl PTTon 01-23-2022 aPTT Coag (Bld) [Time] 27.6 s Normal 22.3-36.2 [facility] Comment on above: Performed By: #### P T, PTT #### [facility] [address] [address] [address] Ladan Diehl TROPONIN, HIGH SENSITIVITYon 01-23-2022 HSTROP 10.4 pg/mL Normal 4.0-76.1 [facility] Comment on above: Result Comment: CUT- OFF POINTS HAVE BEEN ESTABLISHED BASED ON THE FOURTH UNIVERSAL DEFINITIONS OF MYOCARDIAL INFARCTION. THE UPPER REFERENCE LIMIT (URL) OF TROPONIN, DEFINED THE 99TH PERCENTILE OF cTnI DISTRIBUTION IN A REFERENCE POPULATION, HAS BEEN CONFIRMED THE DECISION THRESHOLD FOR [place] DIAGNOSIS. Performed By: #### A 1C #### [facility] [address] [address] [address] ABD/PELV W CONon 01-20-20 CT ABD/PELV W CON EXAMINATION: CT ABD/PELV W CON HISTORY:Fall with left abdominal pain [...] PEDRAZA Date: 2022-01-18 23:39 Normal [facility] XR CHEST 1 Von 01-19-2022 XR [...] by: ROSELIA RIVERA Date: 2022-01-18 22:16 Normal [facility] XR KNEE LT 4V or >on 022 [...] by: JENNIFER CASTILLO Date: 2022-01-18 23:06 Normal [facility] CBC AUTO DIFFon 01-18-2022 BASO # 0.1 103/ul Normal 0.0-0.1 [facility] Comment on above: Performed By: #### C BC #### [facility] [address] [place] [address] Dr. Ladan Diehl Basophils/100 WBC (Bld) 0.8 % Normal 0.2-2.0 [facility] Comment on above: Performed By: #### C BC #### [facility] [address] [place] [address] Dr. Ladan Diehl EO # 0.4 103/ul Normal 0.0-0.7 [facility] Comment on above: Performed By: #### C BC #### [facility] [address] [place] [address] Dr. Ladan Diehl Eosinophils/100 WBC (Bld) 4.3 % Normal 0.9-7.0 [facility] Comment on above: Performed By: #### C BC #### [facility] [address] [place] [address] Dr. Ladan Diehl Erythrocyte distribution width (RBC) [Ratio] 14.4 % Normal 11.0-15.0 [facility] Comment on above: Performed By: #### C BC #### [facility] [address] [address] [address] Ladan Diehl Hematocrit (Bld) [Volume fraction] 37.2 % Critically low 42.0-54.0 [facility] [facility] Comment on above: Performed By: #### C BC #### [facility] [address] [address] [address] Ladan Diehl Hemoglobin (Bld) [Mass/Vol] 11.9 g/dL Critically low 14.0-18.0 [facility] Comment on above: Performed By: #### C BC #### [facility] [address] [place] [address] Dr. Ladan Diehl IG # 0.04 10e3/ul Critically high 0.00-0.03 [facility] Comment on above: Performed By: #### C BC #### [facility] [address] [place] [address] Dr. Ladan Diehl IG % 0.5 % Normal 0.0-0.5 [facility] Comment on above: Performed By: #### C BC #### [facility] [address] [place] [address] Dr. Ladan Diehl LYMPH # 2.2 103/ul Normal 1.2-3.8 [facility] Comment on above: Performed By: #### C BC #### [facility] [address] [place] [address] Dr. Ladan Diehl Lymphocytes/100 WBC (Bld) 26.2 % Normal 20.5-60.0 [facility] Comment on above: Performed By: #### C BC #### [facility] [address] [place] [address] Dr. Ladan Diehl MANUAL DIFF REQ NO Normal [facility] Comment on above: Performed By: #### C BC #### [facility] [address] [place] [address] Dr. Ladan Diehl MCH (RBC) [Entitic mass] 30.4 pg Normal 25.9-34.0 [facility] Comment on above: Performed By: #### C BC #### [facility] [address] [address] [address] Ladan Diehl MCHC (RBC) [Mass/Vol] 32.0 g/dL Normal 29.9-35.2 [facility] Comment on above: Performed By: #### C BC #### [facility] [address] [place] [address] Dr. Ladan Diehl MCV (RBC) [Entitic vol] 94.9 fL Critically high 80.0-94 .0 [facility] Comment on above: Performed By: #### C BC #### [facility] [address] [place] [address] Dr. Ladan Diehl MONO # 0.9 103/ul Critically high 0.3-0.8 [facility] Comment on above: Performed By: #### C BC #### [facility] [address] [place] [address] Dr. Ladan Diehl Monocytes/100 WBC (Bld) 10.3 % Normal 1.7-12.0 [facility] Comment on above: Performed By: #### C BC #### [facility] [address] [place] [address] Dr. Ladan Diehl NEUT # 5.0 103/ul Normal 1.4-6.5 [facility] Comment on above: Performed By: #### C BC #### [facility] [address] [place] [address] Dr. Ladan Diehl Neutrophils/100 WBC (Bld) 57.9 % Normal 43.0-75.0 [facility] Comment on above: Performed By: #### C BC #### [facility] [address] [place] [address] Dr. Ladan Diehl Platelet mean volume (Bld) [Entitic vol] 9.9 fL Normal 9.5-13.5 [facility] Comment on above: Performed By: #### C BC #### [facility] [address] [place] [address] Dr. Ladan Diehl PLT 180 103/ul Normal 150-450 [facility] Comment on above: Performed By: #### C BC #### [facility] [address] [place], [place] [id number] Dr. Ladan Diehl RBC 3.92 106/ul Critically low 4.70-6.10 [facility] Comment on above: Performed By: #### C BC #### [facility] [address] [place] [address] Dr. Ladan Diehl WBC 8.6 103/ul Normal 4.0-11.0 [facility] Comment on above: Performed By: #### C BC #### [facility] [address] [place] [address] Dr. Ladan Diehl PROF 14(COMP METB)on 022 Albumin [Mass/Vol] 2.6 g/dL Critically low 3.4-5.0 [facility] Comment on above: Performed By: #### C MP #### [facility] [address] [place] [address] Dr. Ladan Diehl Albumin/Globulin [Mass ratio] 0.5 {ratio} Normal [facility] Comment on above: Performed By: #### C MP #### [facility] [address] [place] [address] Dr. Ladan Diehl ALP [Catalytic activity/Vol] 184 U/L Critically high 46-116 [facility] Comment on above: Performed By: #### C MP #### [facility] [address] [place] [address] Dr. Ladan Diehl ALT [Catalytic activity/Vol] 24 U/L Normal 16-63 [facility] Comment on above: Performed By: #### C MP #### [facility] [address] [place] [address] Dr. Ladan Diehl Anion gap [Moles/Vol] 10.1 mmol/L Normal [facility] Comment on above: Performed By: #### C MP #### [facility] [address] [place] [address] Dr. Ladan Diehl AST [Catalytic activity/Vol] 22 U/L Normal 15-37 [facility] Comment on above: Performed By: #### C MP #### [facility] [address] [place] [address] Dr. Ladan Diehl Bilirubin [Mass/Vol] 0.5 mg/dL Normal 0.2-1.0 [facility] Comment on above: Performed By: #### C MP #### [facility] [address] [address] [address] Ladan Diehl Calcium [Mass/Vol] 8.6 mg/dL Normal 8.5-10.1 [facility] Comment on above: Performed By: #### C MP #### [facility] [address] [address] [address] Ladan Diehl Chloride [Moles/Vol] 101 mmol/L Normal 98-107 [facility] Comment on above: Performed By: #### C MP #### [facility] [address] [address] [address] Ladan Diehl CO2 [Moles/Vol] 30.9 mmol/L Normal 21.0-32.0 [facility] Comment on above: Performed By: #### C MP #### [facility] [address] [address] [address] Ladan Diehl Creatinine [Mass/Vol] 1.72 mg/dL Critically high 0.70-1.30 [facility] Comment on above: Performed By: #### C MP #### [facility] [address] [place] [address] Dr. Ladan Diehl EGFR-AF [place]ER 49 mL/min/1.73m2 Critically low >=60 [facility] Comment on above: Performed By: #### C MP #### [facility] [address] [address] [address] Ladan Diehl EGFR-NON AF [place] 40 mL/min/1.73m2 Critically low >=60 [facility] Comment on above: Performed By: #### C MP #### [facility] [address] [place] [address] Dr. Ladan Diehl Globulin (S) [Mass/Vol] 5.2 g/dL Normal [facility] Comment on above: Performed By: #### C MP #### [facility] [address] [address] [address] Ladan Diehl Glucose [Mass/Vol] 253 mg/dL Critically high 74-106 [facility] Comment on above: Performed By: #### C MP #### [facility] [address] [address] [address] Ladan Diehl Potassium [Moles/Vol] 4.0 mmol/L Normal 3.5-5.1 [facility] Comment on above: Performed By: #### C MP #### [facility] [address] [address] [address] Ladan Diehl Protein [Mass/Vol] 7.8 g/dL Normal 6.4-8.2 [facility] Comment on above: Performed By: #### C MP #### [facility] [address] [place] [address] Dr. Ladan Diehl Sodium [Moles/Vol] 138 mmol/L Normal 136-145 [facility] Comment on above: Performed By: #### C MP #### [facility] [address] [address] [address] Ladan Diehl Urea nitrogen [Mass/Vol] 30.0 mg/dL Critically high 7.0-18 .0 [facility] Comment on above: Performed By: #### C MP #### [facility] [address] [place] [address] Dr. Ladan Diehl Urea nitrogen/Creatinine [Mass ratio] 17.4 mg/mg Normal [facility] Comment on above: Performed By: #### C MP #### [facility] [address] [address] [address] Ladan Diehl Vital Signs Date Time Vital Sign Value Performing Clinician Facility 05-01-2022 06:00-0400 Diastolic blood pressure 58 mm[Hg] [facility] 05-01-2022 06:00-0400 Heart rate 89 /min [facility] 05-01-2022 06:00-0400 Respiratory rate 20 /min [facility] 05-01-2022 06:00-0400 SaO2% (BldA) [Mass fraction] 91 % [facility] Comment on above: 2 L NC at baseline 05-01-2022 06:00-0400 Systolic blood pressure 86 mm[Hg] [address] 04-12-2022 15:01-0400 Body temperature 98.3 [degF] MD Ayden Freeman Work Phone: [facility] 04-12-2022 15:01-0400 Diastolic blood pressure 68 mm[Hg] MD Ayden Freeman Work Phone: [facility] 04-12-2022 15:01-0400 Heart rate 90 /min MD Ayden Freeman Work Phone: [facility] 04-12-2022 15:01-0400 Respiratory rate 20 /min MD Ayden Freeman Work Phone: [facility] 04-12-2022 15:01-0400 SaO2% (BldA) [Mass fraction] 92 % MD Ayden Freeman Work Phone: [facility] 04-12-2022 15:01-0400 Systolic blood pressure 130 mm[Hg] MD Ayden Freeman Work Phone: [facility] 04-12-2022 10:48-0400 Body height 177.8 cm MD Ayden Freeman Work Phone: [facility] 04-12-2022 10:48-0400 Body weight 154.22 kg MD Ayden Freeman Work Phone: [facility] 04-09-2022 12:00-0400 Diastolic blood pressure 81 mm[Hg] MD Ayden Freeman Work Phone: [facility] 04-09-2022 12:00-0400 Heart rate 99 /min MD Ayden Freeman Work Phone: [facility] 04-09-2022 12:00-0400 Inhaled oxygen flow rate 2 L/min MD Ayden Freeman Work Phone: [facility] 04-09-2022 12:00-0400 Respiratory rate 18 /min MD Ayden Freeman Work Phone: [facility] 04-09-2022 12:00-0400 SaO2% (BldA) [Mass fraction] 98 % MD Ayden Freeman Work Phone: [facility] 04-09-2022 12:00-0400 Systolic blood pressure 127 mm[Hg] MD Ayden Freeman Work Phone: [facility] 04-09-2022 05:22-0400 Body weight 162 kg MD Ayden Freeman Work Phone: [facility] 04-08-2022 20:00-0400 Inhaled oxygen concentration 30 % MD Ayden Freeman Work Phone: [facility] 04-08-2022 14:56-0400 Body height 177.8 cm MD Ayden Freeman Work Phone: [facility] 04-08-2022 08:11-0400 Body temperature 98 [degF] MD Ayden Freeman Work Phone: [facility] 03-16-2022 11:59-0400 Diastolic blood pressure 90 mm[Hg] MD Ayden Freeman Work Phone: [facility] 03-16-2022 11:59-0400 Heart rate 95 /min MD Ayden Freeman Work Phone: [facility] 03-16-2022 11:59-0400 Respiratory rate 18 /min MD Ayden Freeman Work Phone: [facility] 03-16-2022 11:59-0400 SaO2% (BldA) [Mass fraction] 95 % MD Ayden Freeman Work Phone: [facility] 03-16-2022 11:59-0400 Systolic blood pressure 147 mm[Hg] MD Ayden Freeman Work Phone: [facility] 03-16-2022 08:07-0400 Body temperature 97.8 [degF] MD Ayden Freeman Work Phone: [facility] 03-16-2022 06:00-0400 Body weight 163.5 kg MD Ayden Freeman Work Phone: [facility] 03-14-2022 17:24-0400 Body height 177.8 cm MD Ayden Freeman Work Phone: [facility] 03-14-2022 16:00-0400 Inhaled oxygen flow rate 1 L/min MD Ayden Freeman Work Phone: [facility] Encounters Encounter Date Encounter Type Care Provider Facility Start: 12-19-2022 End: 12-20-[address] AYDEN FREEMAN Facility:[facility] Start: 06-05-2022 End: 06-06-[address] AYDEN FREEMAN Facility:[facility] Start: 05-29-2022 End: 06-01-[address] AYDEN FREEMAN Facility:[facility] Start: 05-17-2022 End: 05-17-[address] CAROL YIP Facility:[facility] Start: 05-03-2022 ambulatory UNKNOWN PROVIDER Facili ty:[facility] Start: 05-01-2022 End: 05-04-2022 ambulatory UNKNOWN PROVIDER Facility:[facility] Start: 05-01-2022 End: 05-01-2022 ambulatory [facility] Triage, Treat and Transport Start: 05-01-2022 End: 05-01-2022 Emergency department patient visit [facility] Emergency Triage, Treat and Transport Comment on above: Arrived Start: 04-24-2022 End: 04-30-2022 ambulatory UNKNOWN PROVIDER Facility:[facility] Start: 04-12-2022 End: 04-12-2022 Emergency department patient visit Ramesh Byrd Facility:[facility] Start: 04-12-2022 End: 04-12-2022 Emergency department patient visit MD Ayden Freeman Work Phone: [facility] Start: 04-10-2022 End: 04-17-2022 ambulatory UNKNOWN PROVIDER Facility:[facility] Start: 04-02-2022 End: 04-09-2022 Evaluation and management of inpatient MD Ayden Freeman Work Phone: [facility] Start: 03-15-[address] AYDEN FREEMAN Facil ity:[facility]1 Start: 03-14-2022 End: 03-14-2022 Patient encounter procedure JEFF CARLOS [facility] [place] Start: 03-14-2022 End: 03-16-2022 Evaluation and management of inpatient MD Ayden Freeman Work Phone: [facility] Start: 02-15-[address] AYDEN FREEMAN Facil ity:[facility]1 Start: 02-01-2022 End: 02-01-2022 ambulatory HINA DIOP . Facility:[facility] Start: 01-24-2022 End: 01-24-[address] CAROL YIP Facility:[facility] Start: 01-18-2022 End: 01-19-[address] MASON CASTRO Facility:[facility] Procedures Date Procedure Procedure Detail Performing Clinician Start: 12-19-[address] AYDEN FRIEND Comment on above: Performed By: #### P [facility] #### [facility] [address] [place] [address] Dr. Ladan Diehl Start: 04-12-2022 Plain chest [...] Start: 05-11-2022 Influenza vaccination Influenza Vaccine (#1) [facility] Start: 04-12-2022 Plain chest X-ray XR chest 2V* [facility] Start: 04-12-2022 End: 04-12-2022 Emergency department patient visit Departed Emergency [facility] Start: 04-09-2022 [facility] Work Phone: Start: 04-09-2022 [facility] Work Phone: Start: 04-02-2022 End: 04-09-2022 Evaluation and management of inpatient Abrasion of elbow [facility] Start: 04-02-2022 CT angiography of thorax CT angio chest PE protocol [facility] Start: 04-02-2022 Hospital admission [facility] Work Phone: Start: 04-02-2022 X-ray of left knee XR knee LT 2V [facility] Start: 04-02-2022 Plain chest X-ray XR chest 1V portable [facility] Start: 04-02-2022 Plain X-ray of left hip XR hip LT min 2V(w/wo pelvis)* [facility] Start: 04-02-2022 Plain X-ray of left elbow XR elbow LT min 3V* 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 [facility] Work Phone: Start: 03-14-2022 Hospital admission [facility] Work Phone: Start: 12-09-2021 Welcome to Medicare Visit (G0402) Welcome to Medicare Visit (G0402) [facility] Start: 11-28-2007 Measurement of occult blood in [...] Screening for malignant neoplasm of colon [facility] Patient Education [facility] Work Phone: Patient referral [facility] Work Phone: Payers Date Payer Category Payer Self-pay [id number] 2021 Medicare [employer] - MEDICARE UHC HMO SNP [id number] 2021-Present [phone] [address] [address] [place] [address] Medicare [id number] 2021 Private Health Insurance [id number] 2017 Unknown [id number] 1959 Medicaid [id number] 1959 Medicare [id number] 1957 Unknown [id number] 2.16.840.1.225511.3.579.2. 732 1957 Unknown [id number] 2.16.840.1.867335.3.579.2. 732 1957 Unknown [id number] 2.16.840.1.952676.3.579.2. 732 1957 Unknown [id number] 2.16.840.1.174826.3.579.2. 732 1957 Unknown [id number] 2.16.840.1.277335.3.579.2. 593 1957 Unknown [id number] 2.16.840.1.669866.3.579.2. 593 1957 Unknown [id number] 2.16.840.1.832334.3.579.2. 593 1957 Unknown [id number] 2.16.840.1.564785.3.579.2. 593 1957 Unknown [id number] 2.16.840.1.340595.3.579.2. 593 1957 Unknown [id number] 2.16.840.1.653015.3.579.2. 593 1957 Unknown [id number] 2.16.840.1.526376.3.579.2. 593 1957 Unknown [id number] 2.16.840.1.596339.3.579.2. 593 1957 Unknown [id number] 2.16.840.1.910825.3.579.2. 593 Medicare Medicare [id number] Medicare Medicare Psych-IP Part A [id number] Medicare [place] [facility] PFFS [id number] Medicare [place] [facility] MCR [id number] Unknown [facility] [id number] Unknown [id number] 2.16.840.1.615165.3.579.2. 531 Social History Date Type Detail Facility Tobacco smoking status No Smoking Status Entered [facility] Sex Assigned At Male [facility] Start: 04-02-2022 End: 04-12-2022 Tobacco smoking status NHIS Never smoked tobacco (finding) [facility] Start: 1955 Sex Assigned At Male [facility] Tobacco [facility] status 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 EMERGENCY TRIAGE, TREAT AND TRANSPORT (ET3) DOCUMENTATION OF TELEHEALTH VISIT Date / Time: 05/01/2022599 Name: Stephane Patterson : 1955 SSN: [id number] EMS Agency: [facility] [x] Verbal consent obtained [] [...] Peter Molina DO documented in this encounter [facility] 04-08-2022 Progress note Note Date/Time April 08, 2022 1:38pm [facility] [address] [place] [address] Hospitalist Progress Note Signed Patient: Stephane Patterson MR#: [id number] : 1955 Acct:[id number] Age/Sex: 66 / M Adm Date: 2 Loc: Room: 7W8017-7 Type: ADM INOo Attending Dr: Lupe Hernandez [...] Hypothyroidism: Plan Patient currently awaiting placement to fdc facility. Remains in normal sinus rhythm. He [...] By: <Electronically signed by Lupe Hernandez MD> 04/08/[address] [place] [address] Ctr Work Phone: 1(811) 571-526408-28-2022 Discharge summary Author Luke Moran [facility] April 07, 2022 4:16pm Note Date/Time April 05, 2022 10 :05am [facility] [address] [place] [address] Discharge Summary Signed with Addenda Patient: Stephane Patterson MR#: [id number] : 1955 Acct:[id number] Age/Sex: 66 / M Adm Date: 2 Loc: Room: [address] [place] [address]: Luke Moran MD Copies to: [...] discharged home in stable condition to a fdc facility. Medical therapy was adjusted as noted [...] 10:24: POC Glucose 271 04/03/22 07:34: Free [place] LC, Quant 93.9 H, Free [place] LC, Quant 61.6 H, Free [place]/Lambda Ratio 1.52 Exam Physical Exam Vital Signs: Temp Pulse Resp BP Pulse Ox O2 Del Method O2 Flow Rate 97.9 F 85 20 134/76 90 L Room Air 2 04/05/22 08:00 04/05/22 08:00 04/05/22 08:00 04/05/22 08:00 04/05/22 08:00 04/05/22 08:00 04/05/22 08:00 FiO2 30 04/04/22 22:34 Discharge Plan Discharge Plan Patient Disposition: [facility] Care Facility Activity: Ambulate as Tolerated Diet: Diabetic and Low-Sodium Additional Instructions: Please have company providing CPAP machine fit the patient with a mask that he can tolerate. Use a CPAP of 8 whenever asleep until the sleep study performed. Senior Care Facility to manage care: - Full code [...] Instructions: Sliding Scale ACHS Other Ambulatory Orders: [facility]INE GEOLOGIST polysom procedure (Routine) Timeframe: 3 Weeks Location: Determined by Patient Ordered By: Luke Moran Follow Up: [facility] [Outside] ([facility] or Central Scheduling will call you to arrange date/time for sleep study. ) Documented By: Luke Moran MD 04/07/22 0959 Signed By: <Electronically signed by Luke Moran MD> 04/07/22 1610 [facility] Work Phone: 1(144) 613-535908-27-2022 Progress note Author Luke Moran [facility] April 06, 2022 2:50pm Note Date/Time April 06, 2022 2: 50pm [facility] [address] [place] [address] Hospitalist Progress Note Signed Patient: Stephane Patterson MR#: [id number] : 1955 Acct:[id number] Age/Sex: 66 / M Adm Date: 2 Loc: Room: [address] [place] [address] Type: ADM INOo Attending Dr: Luke Moran [...] <Electronically signed by Luke Moran MD> 04/06/22 1450 [facility] Work Phone: 1(535) 189-478808-25-2022 Progress note Author Luke Moran [facility] April 04, 2022 4:25pm Note Date/Time April 04, 2022 4: 25pm [facility] [address] [place] [address] Hospitalist Progress Note Signed Patient: Stephane Patterson MR#: [id number] : 1955 Acct:[id number] Age/Sex: 66 / M Adm Date: 2 Loc: Room: [address] [place] [address] Type: ADM INOo Attending Dr: Luke Moran [...] <Electronically signed by Luke Moran MD> 04/04/221624 [facility] Work Phone: 1(645) 830-382008-24-2022 Progress note Author Luke Moran [facility] April 03, 2022 2:05pm Note Date/Time April 03, 2022 2: 05pm [facility] [address] [place] [address] Hospitalist Progress Note Signed Patient: Stephane Patterson MR#: [id number] : 1955 Acct:[id number] Age/Sex: 66 / M Adm Date: 2 Loc: Room: [address] [place] [address] Type: ADM INOo Attending Dr: Luke oMran MD Copies to: ~ Date of Service: [...] Flush Documented By: Luke Moran MD 04/03/22 140 Signed By: <Electronically signed by Luke Moran MD> 04/03/22 1405 [facility] Work Phone: 1(596) 938-784408-23-2022 History and physical note Author Luke Moran [facility] April 02, 2022 7:48pm Note Date/Time April 02, 2022 7: 45pm [facility] [address] [place] [address] Hospitalist H&P Signed Patient: Stephane Patterson MR#: [id number] : 1955 Acct:[id number] Age/Sex: 66 / M Adm Date: 2 Loc: ER Room: Type: [facility] ER Attending Dr: Copies to: MD [...] type 2 Anxiety disorder Hypertension Atrial fibrillation PMFSH Vaccinated for COVID-19?: No Medical History [...] Type: None Social History Comments: [facility] Medications and Allergies Allergies metformin Adverse Reaction [...] gauge and blood glucose strips combo pack (Johnji Lancets) #120 ea 03/16/22 [Rx] pen needle, [...] % (Auto) 8.7 % (.) 04/02/22 17:51 Lanier % (Auto) 12.2 % (.) 04/02/22 17:51 Eos % (Auto) 2.4 % (.) 04/02/22 17:51 Baso % (Auto) 0.6 % (.) 04/02/22 17:51 Neut # (Auto) 6.4 x10E3/uL (1.8-7.7) 04/02/22 17:51 Lymph # (Auto) 0.7 x10E3/uL (1.00-4.8) L 04/02/22 17:51 Lanier # (Auto) 1.0 x10E3/uL (0.0-0.8) H 04/02/22 [...] <Electronically signed by Luke Moran MD> 04/02/221947 [facility] Work Phone: 1(421) 931-583208-06-2022 Discharge summary Author Xin Phan [facility] March 16, 2022 9:37am Note Date/Time March 16, 2022 9:3 7am [facility] [address] [place] [address] Discharge Summary Signed Patient: Stephane Patterson MR#: [id number] : 1955 Acct:[id number] Age/Sex: 66 / M Adm Date: 2 Loc: Room: [address] [place] [address]: Xin Phan MD Copies to: MD Ayden Wislon MD~ Providers Date of Discharge: 03/16/22 Discharging [...] anxiety and depression who was transferred from [facility] for acute kidney injury.? Patient presented with generalized weakness and disorientation at [facility]. He was noted to have blood sugars [...] headache or dizziness.? No fevers Paperwork from [facility] reviewed, chest x-ray with no acute cardiopulmonary process.? Sodium 129.? Potassium 3.3.? Creatinine 2.52.? WBC 6.8.? Hemoglobin 12.5.? Glucose 4.34.? Patient will be admitted by the hospitalist team for further evaluation and management. Patient was positive for COVID, patient was alert oriented x3 at [facility], patient states that he has been [...] 1.9 L 03/16/22 06:28: POC Glucose 246 08/05/22 20:24: POC Glucose 468 H*, POC Glucose [...] untreated sleep apnea Instructions: Blood Glucose Monitoring, [facility] COVID-19 Discharge Instructions Prescriptions: New Levemir FlexTouch [...] signed by Xin Phan MD> 03/16/22 0937 [facility] Work Phone: 1([phone]) 129-364208-05-2022 Progress note Author Sarah Vergarajl [facility] March 15, 2022 3:43pm Note Date/Time March 15, 2022 3:3 7pm [facility] [address] [place] [address] Nephrology Progress Note Signed Patient: Stephane Patterson MR#: [id number] : 1955 Acct:[id number] Age/Sex: 66 / M Adm Date: 2 Loc: Room: [address] [place] [address] Type: ADM IN Attending Dr: Xin Phan MD Copies to: ~ Date of Service: 03/15/2022 Subjective Subjective Narrative: This is 66-year-old male patient with a past medical history of morbid obesity, endocarditis, paroxysmal A. fib, diabetes type 2, anxiety and depression and chronic kidney disease stage III. Patient presented to [facility] with feeling weak and disoriented for 2 weeks which has gotten worse. Patient has been having cough with decreased appetite and loss of taste for a week. Lab at [facility] shows acute kidney injury with creatinine up to 4.3 mg/dL along with hyperglycemia with initial blood glucose level more than 400. Patient's blood pressure was in the 80s at [facility]. Patient was given IV fluid and transferred [...] 03/15/22 12:00 03/15/22 12:00 03/14/22 16:00 Narrative: General: No acute distress. [...] 23:59 Intake Total 2150 / 2150 1999 / 1999 Output Total 975 / 975 700 [...] 500 Mg Tablet) 500 mg PO DAILY [facility] Stop: 03/14/23 08:59 Last Admin: 03/15/22 08:34 Dose: 500 mg Dexamethasone 2 mg/ (Dexamethasone 4 mg) 6 mg PO DAILY [facility] Stop: 03/22/23 08:59 Last Admin: 03/15/22 08:34 [...] 5,000 Unit/Ml Vial) 5,000 unit SUBCUT Q12HR JOSIANE Stop: 03/14/23 08:59 Last Admin: 03/15/22 08:34 Dose: 5,000 unit Sodium Chloride (0.9% Sodium Chloride 1,000 Ml) 1,000 mls @ 100 mls/hr IV .[id number] Stop: 03/14/23 01:59 Last Admin: 03/15/22 06:46 Dose: 100 mls/hr Insulin Aspart (Insulin Aspart 300 Units/3 Ml Insuln.Pen) 0 units SUBCUT TID.WM.HS [facility]; Protocol Stop: 03/14/23 07:59 Last Admin: 03/15/22 12:06 Dose: 9 units Insulin Detemir (Insulin Detemir 300 Units/3 Ml Insuln.Pen) 40 units SUBCUT DAILY.WITH.BKFAST [facility] Stop: 03/16/23 07:59 Zinc Sulfate (Zinc Sulfate [...] question Documented By: Sarah Osuna MD 03/15/22 1535 Signed By: <Electronically signed by Sarah Osuna MD> 03/15/22 2814 [facility] Work Phone: 1([phone]) 562-368708-05-2022 Progress note Author Xin Phan [facility] March 15, 2022 12:44pm Note Date/Time March 15, 2022 12: 44pm [facility] [address] [place] [address] Hospitalist Progress Note Signed Patient: Stephane Patterson MR#: [id number] : 1955 Acct:[id number] Age/Sex: 66 / M Adm Date: 2 Loc: Room: [address] [place] [address] Type: ADM IN Attending Dr: Xin Phan MD Copies to: ~ Date of Service: 03/15/2022 Subjective Subjective Narrative: Patient is a 66-year-old male, with a PMHx of Morbid obesity, endocarditis in August of this year, atrial fibrillation, type 2 diabetes, hypertension, liver cirrhosis, anxiety and depression who was transferred from [facility] for acute kidney injury. Patient presented with generalized weakness and disorientation at [facility]. He was noted to have blood sugars [...] headache or dizziness. No fevers Paperwork from [facility] reviewed, chest x-ray with no acute cardiopulmonary [...] Dose Route Start Last Admin Trade Name Bernardinoq PRN Reason Stop Dose Admin Acetaminophen 650 [...] Insulin Aspart 300 Units/3 Ml Insuln.Pen SUBCUT 03/14/23 07:59 9 units TID.WM.HS JOSIANE Administration Protocol [...] secondary to poor oral intake. Presented at [facility] with low blood pressures in the 80s. ?Creatinine at [facility] 4.34. Baseline creatinine ~1.4 - Nephrology has [...] noncompliance to diabetic diet ?Blood sugar at [facility] was in the 400s ? Will increase Levemir to 40 units ?HbA1c is 13 Chronic conditions: 1. Atrial fibrillation-not on AC 2. Type 2 diabetes 3. Hypertension 4. Liver cirrhosis 5. Anxiety and depression 6. Levothyroxine 7. Hyperlipidemia CODE STATUS: Full code DVT prophylaxis: Heparin Anticipate discharge likely tomorrow Documented By: Xin Phan MD 03/15/22 1240 Signed By: <Electronically signed by Xin Phna MD> 03/15/22 1244 [facility] Work Phone: 1(380) 210-778908-04-2022 Progress note Author Renato Looney [facility] March 14, 2022 2:14pm Note Date/Time March 14, 2022 2:1 4pm [facility] [address] [place] [address] Progress Note Signed Patient: Stephane Patterson MR#: [id number] : 1955 Acct:[id number] Age/Sex: 66 / M Adm Date: 2 Loc: Room: [address] [place] [address] Type: ADM IN Attending Dr: Renato Looney MD Copies to: ~ Date of Service: 03/14/2022 Progress Narrative Note PROGRESS NOTE Progress Note: Patient seen and evaluated by electron tube assembler early this morning and also by myself. Briefly, patient is a 66-year-old male past medical history significant for obesity, atrial fibrillation, hypertension, diabetes, liver cirrhosis, mood disorder and recent endocarditis infection who presented to outlying facility due to generalized weakness found to have COVID-19 and acute kidney injury and was transferred to [facility] for further evaluation and management. 1. Acute [...] signed by Renato Looney MD> 03/14/22 1414 [facility] Work Phone: 1(216) 827-423608-04-2022 Consult note Author Sarah Osuna [facility] March 14, 2022 12:30pm Note Date/Time March 14, 2022 12: 30pm [facility] [address] [place] [address] Nephrology Consult Note Signed Patient: Stephane Patterson MR#: [id number] : 1955 Acct:[id number] Age/Sex: 66 / M Adm Date: 2 Loc: Room: [address] [place] [address] Type: ADM IN Attending Dr: Renato Looney MD Copies to: MD Renato Engel MD [...] kidney disease stage III. Patient presented to [facility] with feeling weak and disoriented for 2 weeks which has gotten worse. Patient has been having cough with decreased appetite and loss of taste for a week. Lab at [facility] shows acute kidney injury with creatinine up to 4.3 mg/dL along with hyperglycemia with initial blood glucose level more than 400. Patient's blood pressure was in the 80s at [facility]. Patient was given IV fluid and transferred [...] Type: None Social History Comments: Lives in [facility] Medications & Allergies Allergies metformin Adverse Reaction [...] 500 Mg Tablet) 500 mg PO DAILY [facility] Stop: 03/14/23 08:59 Last Admin: 03/14/22 08:34 Dose: 500 mg Dexamethasone 2 mg/ (Dexamethasone 4 mg) 6 mg PO DAILY [facility] Stop: 03/22/23 08:59 Last Admin: 03/14/22 08:33 [...] 5,000 Unit/Ml Vial) 5,000 unit SUBCUT Q12HR [facility] Stop: 03/14/23 08:59 Last Admin: 03/14/22 08:39 Dose: 5,000 unit Sodium Chloride (0.9% Sodium Chloride 1,000 Ml) 1,000 mls @ 100 mls/hr IV .[id number] Stop: 03/14/23 01:59 Last Admin: 03/14/22 03:26 Dose: 100 mls/hr Insulin Aspart (Insulin Aspart 300 Units/3 Ml Insuln.Pen) 0 units SUBCUT TID.WM.HS [facility]; Protocol Stop: 03/14/23 07:59 Last Admin: 03/14/22 12:06 Dose: Not Given Insulin Detemir (Insulin Detemir 300 Units/3 Ml Insuln.Pen) 35 units SUBCUT DAILY.WITH.BKFAST [facility] Stop: 03/14/23 07:59 Last Admin: 03/14/22 08:34 Dose: 35 units Zinc Sulfate (Zinc Sulfate 220 Mg Capsule) 220 mg PO DAILY [facility] Stop: 03/14/23 08:59 Last Admin: 03/14/22 08:34 [...] Michael Tinajero M.D.03/14/2022 8:24 AM Dictation Location: [place] [address] Any impression(s) listed above is documentation that [...] stage III likely from diabetic nephropathy. UA 2020 showed 100 protein. No UA this visit [...] signed by Sarah Osuna MD> 03/14/22 1230 [facility] Work Phone: [phone]) [phone] History and physical note Author Mary Jane Riley [facility] March 14, 2022 6:40am Note Date/Time March 14, 2022 2:0 2am [facility] [address] [place] [address] Hospitalist H&P Signed Patient: Stephane Patterson MR#: [id number] : 1955 Acct:[id number] Age/Sex: 66 / M Adm Date: 2 Loc: Room: [address] [place] [address] Type: ADM IN Attending Dr: Mary Jane Hanna MD Copies to: MD Leah Marin, KATT Freeman MD~ HPI DATE OF EXAMINATION: 03/14/22 CHIEF COMPLAINT: FRANC HISTORY OF PRESENT ILLNESS: Patient is a 66-year-old male, with a PMHx of Morbid obesity, endocarditis in August of this year, atrial fibrillation, type 2 diabetes, hypertension, liver cirrhosis, anxiety and depression who was transferred from [facility] for acute kidney injury. Patient presented with generalized weakness and disorientation at [facility]. He was noted to have blood sugars [...] headache or dizziness. No fevers Paperwork from [facility] reviewed, chest x-ray with no acute cardiopulmonary process. Sodium 129. Potassium 3.3. Creatinine 2.52. WBC 6.8. Hemoglobin 12.5. Glucose 4.34. Patient will be admitted by the hospitalist team for further evaluation and management. Review of Systems Review of Systems Review of systems: 10 point review of systems obtained, negative unless noted in the HPI or below [facility] Medical History Abdominal mass Anxiety Arthritis Back pain Cirrhosis Colonoscopy planned Deviated nasal septum Diabetes mellitus, type 2 Eczema History of left heart catheterization Pneumonia Surgical History History of cholecystectomy History of hydrocelectomy History of lithotripsy History of nasal surgery Family History Mother Cancer Social History Smoking Status: Never smoker Substance Use Type: None Social History Comments: Lives in [facility] Medications and Allergies Allergies metformin Adverse Reaction [...] secondary to poor oral intake. Presented at [facility] with low blood pressures in the 80s. ?Creatinine at [facility] 4.34. Baseline creatinine ~1.4 ?Urine sodium, creatinine, urea pending ? Urine output monitoring ? Start IV fluids ? Hold home lisinopril and renally adjust medications ?Consider renal ultrasound if no improvement ? Nephrology consult ?Monitor BMP COVID-19 positive -unvaccinated. ? Presented with productive cough, hypoxia, loss of taste and generalized weakness ? Afebrile, no leukocytosis ? Chest x-ray from [facility] did not show any acute cardiopulmonary disease, [...] noncompliance to diabetic diet ?Blood sugar at [facility] was in the 400s ?Basal insulin 35 [...] the plan of care and confirmed the resident's/engineer intern/medical student's dictation/written note. Patient is a 66-year-old [...] Signed By: <Electronically signed by KATT Huang> 03/14/22 0314 <Electronically signed by Mary Jane Hanna MD> 03/14/22 0640 [facility] Work Phone: 1([phone]) 397-108804-19-2022 Progress note Author Lupe Hernandez [facility] April 09, 2022 3:32pm Note Date/Time April 09, 2022 1: 08pm [facility] [address] [place] [address] Hospitalist Progress Note Signed with Addenda Patient: Stephane Patterson MR#: [id number] : 1955 Acct:[id number] Age/Sex: 66 / M Adm Date: 2 Loc: Room: [address] [place] [address] Type: DIS INOo Attending Dr: Lupe Hernandez MD Copies to: ~ ADDENDUM1 Patient was personally seen by me on the day of encounter, reviewed his history and performed long elements of exam and formulated the plan of care and confirmedthe residents note below. Unfortunately patient has been denied by insurance for fdc facility after peer to peer. He will [...] to thrive, paroxysmal A. fib, CKD 3, rhe-qijvbnv-ftvkubmkm diabetes, CHF is being monitored on the floor while a [id number] was had with regards to the patient's discharge to a fdc facility. Insurance company has denied this coverage [...] agreed the patient would do well at fdc facility. Documented By: Allen Perez DO, RES 2 1302 Signed By: <Electronically signed by DO TAMMIE Perez> 04/09/22 1308 <Electronically signed by Lupe Hernandez MD> 04/09/22 1531 [facility] Work Phone: Discharge summary Author Luke Moran [facility] April 07, 2022 4:16pm Note Date/Time April 05, 2022 10 :05am [facility] [address] [place] [address] Discharge Summary Signed with Addenda Patient: Stephane Patterson MR#: [id number] : 1955 Acct:[id number] Age/Sex: 66 / M Adm Date: 2 Loc: Room: [address] [place] [address]: Luke Moran MD Copies to: [...] Provider: Luke Moran Primary Care Provider: Ayden Naderer Consults: 04/02/22 19:35 Consult to Occupational Therapy [...] discharged home in stable condition to a fdc facility. Medical therapy was adjusted as noted [...] 10:24: POC Glucose 271 04/03/22 07:34: Free [place] LC, Quant 93.9 H, Free Lambda LC, Quant 61.6 H, Free [place]/Lambda Ratio 1.52 Exam Physical Exam Vital Signs: Temp Pulse Resp BP Pulse Ox O2 Del Method O2 Flow Rate 97.9 F 85 20 134/76 90 L Room Air 2 04/05/22 08:00 04/05/22 08:00 04/05/22 08:00 04/05/22 08:00 04/05/22 08:00 04/05/22 08:00 04/05/22 08:00 FiO2 30 04/04/22 22:34 Discharge Plan Discharge Plan Patient Disposition: Senior [facility] Facility Activity: Ambulate as Tolerated Diet: Diabetic and Low-Sodium Additional Instructions: Please have company providing CPAP machine fit the patient with a mask that he can tolerate. Use a CPAP of 8 whenever asleep until the sleep study performed. Senior [facility] Facility to manage care: - Full code [...] Instructions: Sliding Scale ACHS Other Ambulatory Orders: MINE GEOLOGIST polysom procedure (Routine) Timeframe: 3 Weeks Location: Determined by Patient Ordered By: Luke Moran Follow Up: [facility] [Outside] ([facility] Sleep Lab or Central Scheduling will call you to arrange date/time for sleep study. ) Documented By: Luke Moran MD 04/07/22 0959 Signed By: <Electronically signed by Luke Moran MD> 04/07/22 1610 [facility] Work Phone: Evaluation + Plan note No data available for this section [facility] Evaluation note* Diagnosis Onset Date Resolution Status FRANC (acute kidney injury) ac sleetmute Chronic kidney disease, stage III (moderate) acute COVID acute Diabetes acute Hyperglycemia acute Hypertension acute Hyponatremia acute Abrasion of elbow acute CHF (congestive heart failure) acute Diabetes mellitus, type 2 ac sleetmute Failure to thrive acute Fall acute Hypergammaglobulinemia acute Hypothyroidism acute Hypoxemia acute Morbid obesity due to excess calories acute Obstructive sleep apnea acut e Unable to care for self acut e [facility] Work Phone: Evaluation note* Diagnosis Hypotension, unspecified hypotension type- Primary Fall, initial encounter Refusal of treatment Surgical or other procedure not carried out because of patient's decision documented in this encounter [facility] assessment information availableUniversity [facility] Work Phone: Hospital Discharge instructions No data available for this section [facility] Hospital Discharge instructionsAmbulatory Orders* Initiate Home Health Time Frame: 04/09/22, Location: Determined By Patient Additional Instructions Please wear home oxygen at 2l at all times. HOME HEALTH TO MANAGE: Nursing/PT/OT/Aide/Biometric Technician to eval and treat Monitor VS per protocol Maintain home oxygen at 2l continuous *Oxygen therapy is new, educate patient on Monitor Respiratory assessment Assist with medication management and provide medication education Assist with glucose control Skin care TID: *Theraworx protect to bilateral groin and abdominal fold redness. *Educate patient on Provide education on high risk fall precautions [facility] Work Phone: Hospital Discharge instructions Additional Instructions If your symptoms return/worsen or you develop any further concerns or symptoms please see your doctor or return to the emergency department immediately.[facility] Work Phone: Progress note No data available for this section [facility]ivo Progress note Author Sarah Osuna [facility] March 16, 2022 12:40pm Note Date/Time March 16, 2022 12: 36pm [facility] [address] [place] [address] Nephrology Progress Note Signed Patient: Stephane Patterson MR#: [id number] : 1955 Acct:[id number] Age/Sex: 66 / M Adm Date: 2 Loc: Room: [address] [place] [address] Type: ADM IN Attending Dr: Xin Phan MD Copies to: ~ Date of Service: 03/16/2022 Subjective Subjective Narrative: This is 66-year-old male patient with a past medical history of morbid obesity, endocarditis, paroxysmal A. fib, diabetes type 2, anxiety and depression and chronic kidney disease stage III. Patient presented to [facility] with feeling weak and disoriented for 2 weeks which has gotten worse. Patient has been having cough with decreased appetite and loss of taste for a week. Lab at [facility] shows acute kidney injury with creatinine up to 4.3 mg/dL along with hyperglycemia with initial blood glucose level more than 400. Patient's blood pressure was in the 80s at [facility]. Patient was given IV fluid and transferred [...] 5 Mg Tablet) 5 mg PO DAILY [facility] Stop: 03/15/23 15:59 Last Admin: 03/16/22 08:08 Dose: 5 mg Ascorbic Acid (Ascorbic Acid 500 Mg Tablet) 500 mg PO DAILY [facility] Stop: 03/14/23 08:59 Last Admin: 03/16/22 08:08 Dose: 500 mg Dexamethasone 2 mg/ (Dexamethasone 4 mg) 6 mg PO DAILY [facility] Stop: 03/22/23 08:59 Last Admin: 03/16/22 08:08 [...] 5,000 Unit/Ml Vial) 5,000 unit SUBCUT Q12HR [facility] Stop: 03/14/23 08:59 Last Admin: 03/16/22 08:09 Dose: Not Given Insulin Aspart (Insulin Aspart 300 Units/3 Ml Insuln.Pen) 0 units SUBCUT TID.WM.HS [facility]; Protocol Stop: 03/14/23 07:59 Last Admin: 03/16/22 11:57 Dose: 8 units Insulin Detemir (Insulin Detemir 300 Units/3 Ml Insuln.Pen) 40 units SUBCUT DAILY.WITH.BKFAST [facility] Stop: 03/16/23 07:59 Last Admin: 03/16/22 08:10 Dose: 40 units Zinc Sulfate (Zinc Sulfate 220 Mg Capsule) 220 mg PO DAILY [facility] Stop: 03/14/23 08:59 Last Admin: 03/16/22 08:08 [...] signed by Sarah Osuna MD> 03/16/22 1240 [facility] Work Phone: Progress note Author Luke Moran [facility] April 03, 2022 2:05pm Note Date/Time April 03, 2022 2: 05pm [facility] [address] [place] [address] Hospitalist Progress Note Signed Patient: Stephane Patterson MR#: [id number] : 1955 Acct:[id number] Age/Sex: 66 / M Adm Date: 2 Loc: Room: [address] [place] [address] Type: ADM INOo Attending Dr: Luke Moran [...] Flush Documented By: Luke Moran MD 04/03/22 140 Signed By: <Electronically signed by Luke Moran MD> 04/03/22 1405 [facility] Work Phone: Progress note Author Luke Moran [facility] April 04, 2022 4:25pm Note Date/Time April 04, 2022 4: 25[facility] [address] [place] [address] Hospitalist Progress Note Signed Patient: Stephane Patterson MR#: [id number] : 1955 Acct:[id number] Age/Sex: 66 / M Adm Date: 2 Loc: 3T Room: [address] [place] [address] Type: ADM INOo Attending Dr: Luke Moran [...] signed by Luke Moran MD> 04/04/22 1625 [facility] Work Phone: Progress note Author Luke Moran [facility] April 06, 2022 2:50pm Note Date/Time April 06, 2022 2: 50pm [facility] [address] [place] [address] Hospitalist Progress Note Signed Patient: Stephane Patterson MR#: [id number] : 1955 Acct:[id number] Age/Sex: 66 / M Adm Date: 2 Loc: Room: [address] [place] [address] Type: ADM INOo Attending Dr: Luke Moran [...] <Electronically signed by Luke Moran MD> 04/06/22 1450 [facility] Work Phone: Progress note Author Lupe Hernandez [facility] April 08, 2022 1:38pm Note Date/Time April 08, 2022 1: 38pm [facility] [address] [place] [address] Hospitalist Progress Note Signed Patient: Stephane Patterson MR#: [id number] : 1955 Acct:[id number] Age/Sex: 66 / M Adm Date: 2 Loc: Room: [address] [place] [address] Type: ADM INOo Attending Dr: Lupe Hernandez [...] Hypothyroidism: Plan Patient currently awaiting placement to fdc facility. Remains in normal sinus rhythm. He has not been able to tolerate CPAP. He will benefit from sleep study as an outpatient. Dose of levothyroxine has been increased dueto elevated TSH. Patient will require outpatient hematology/oncology consultation regarding gammopathy. Continue basal insulin sliding scale coverage. Continue lisinopril, sertraline, ropinirole Xarelto for DVT prophylaxis Documented By: Lupe Hernandez MD 04/08/22 1332 Signed By: <Electronically signed by Lupe Hernandez MD> 04/08/22 1335 [facility] Work Phone: Chief Complaint and Reason [...] MD Primary Care Provider Active Jair Gabriel , DO Emergency Provider Active Luke Moran MD Admit Provider Active Lupe Hernandez MD Attending Provider Active Team Status: Active Member Role Status Dates Ayden Freeman MD Primary Care Provider Active Team Status: Inactive Member Role Status Dates Ramesh Byrd , DO Emergency Provider Active Ayden Freeman MD Primary Care Provider Active (unrecognized sect ion and content) No Status Records FoundNo Status Records FoundNo Status Records Found INFORMATION SOURCE (unrecogn ized section and content) DATE CREATED AUTHOR 05/08/2022 [facility] [employer] DATE CREATED AUTHOR AUTHOR'S ORGANIZ ATION 12/23/2022 [facility] DATE CREATED AUTHOR AUTHOR'S ORGANIZ ATION 04/12/2023 [facility] Reason for Visit (unrecogniz ed section [...] BE BASED ON THE PRIMARY CLINICAL RECORDS. [facility] [employer] [facility]. provides no warranty or guarantee of the accuracy or completeness of information in this document.
[2023-09-10 20:26] VITALS: BP 193/103; PULSE 82; RESP 18; TEMP 36.6; O2SAT 96; BMI 43.0
--- NOTE | 2023-09-10 21:07 | XR_ITS ---
[address] [address] Patient Name: EVELIN CAMACHO MRN: [id number] date: 1955 Sex: M Assigned Patient Location: ER Current Patient Location: ER Accession/Order Number: [id number] Exam Date: 09/10/2023 22:15 Report Date: 09/10/2023 22:41 At the request of: DEVAN ZAVALA Procedure: XR lumbar spine 2-3V EXAM: XR lumbar spine 2-3V HISTORY: pain COMPARISON: None. FINDINGS/IMPRESSION: 1. No acute fracture or dislocation 2. Normal alignment of the lumbar spine. 3. Vertebral body height is preserved. Intervertebral disc height is preserved. 4. Mild degeneration of the bilateral sacroiliac joints. 5. Overlying bowel gas pattern is nonspecific. Electronically authenticated by: MAGGIE SHAH Date: 09/10/2023 22:41
--- NOTE | 2023-09-10 21:07 | XR_ITS ---
The [address] [address] Patient Name: EVELIN CAMACHO MRN: [id number] date: 1955 Sex: M Assigned Patient Location: ER Current Patient Location: ER Accession/Order Number: [id number] Exam Date: 09/10/2023 22:15 Report Date: 09/10/2023 22:48 At the request of: DEVAN ZAVALA Procedure: XR cervical spine 2-3V EXAM: XR cervical spine 2-3V HISTORY: pain COMPARISON: None. TECHNIQUE: 5 views of the cervical spine FINDINGS: Normal lordotic curvature of the cervical spine is seen. The cervical vertebral bodies demonstrate normal height and alignment. No obvious acute fracture is seen. The atlantoaxial alignment and cervicothoracic alignment appear intact. The prevertebral and paravertebral soft tissues appear unremarkable. XR/XR cervical spine 2-3V IMPRESSION: No obvious radiographic evidence for acute fracture or traumatic malalignment. Electronically authenticated by: JENNIFER CASTILLO Date: 09/10/2023 22:48
--- NOTE | 2023-09-10 21:07 | XR_ITS ---
The [place] [id number] Patient Name: EVELIN CAMACHO MRN: [id number] date: 1955 Sex: M Assigned Patient Location: ER Current Patient Location: ER Accession/Order Number: [id number] Exam Date: 09/10/2023 22:15 Report Date: 09/10/2023 22:43 At the request of: DEVAN ZAVALA Procedure: XR knee RT 3V XR knee RT 3V 09/10/2023 10:15 PM EST CLINICAL INDICATION: Chronic right knee pain and swelling COMPARISON: 03/26/2023 TECHNIQUE: 3 views of the right knee. FINDINGS: The bones are intact. The alignment is anatomic. There are mild degenerative changes of the joints. The soft tissues are grossly unremarkable. XR/XR knee RT 3V IMPRESSION: No acute osseous abnormality of the right knee. Electronically authenticated by: TANNER PEDRAZA Date: 09/10/2023 22:43
[2023-09-10] MEDS: KETOROLAC TROMETHAMINE 60 MG/2 ML VIAL IM (21:16)
[2023-09-10 21:30] LABS: Basophils Absolute Auto 0.1 10^3/uL (0.0-0.1); Eosinophils Absolute Auto 0.3 10^3/uL (0.0-0.7); Eosinophils Percent Auto 4.2 % (0.9-7.0); Hematocrit 36.1 % (42.0-54.0); Hemoglobin 11.8 g/dL (14.0-18.0); Immature Granulocytes Abs Auto 0.01 10^3/uL (0.00-0.03); Immature Granulocytes Pct Auto 0.1 % (0.0-0.5); Lymphocytes Absolute Auto 2.1 10^3/uL (1.2-3.8); Lymphocytes Percent Auto 31.1 % (20.5-60.0); Mean Corpuscular HGB Conc 32.7 g/dL (29.9-35.2); Mean Corpuscular Hemoglobin 29.6 pg (25.9-34.0); Mean Corpuscular Volume 90.5 fL (80.0-94.0); Mean Platelet Volume 9.5 fL (9.5-13.5); Monocytes Absolute Auto 0.9 10^3/uL (0.3-0.8); Monocytes Percent Auto 13.4 % (1.7-12.0); Neutrophils Absolute Auto 3.4 10^3/uL (1.4-6.5); Neutrophils Percent Auto 50.2 % (43.0-75.0); Platelet Count 243 10^3/uL (150-450); Red Blood Count 3.99 10^6/uL (4.70-6.10); Red Cell Distribution Width 15.7 % (11.0-15.0); White Blood Count 6.7 10^3/uL (4.0-11.0)
[2023-09-10 21:40] LABS: Erythrocyte Sedimentation Rate >130 mm/hr (<=20)
[2023-09-10 21:58] LABS: Anion Gap 8.7; BUN Creatinine Ratio 9.7; Carbon Dioxide 27.5 mmol/L (21.0-32.0); Chloride 103 mmol/L (98-107); Estimated GFR (African America 60 (>=60); Estimated GFR (Non-African Ame 49 (>=60); Glucose 123 mg/dL (74-106); Potassium 3.2 mmol/L (3.5-5.1); Sodium 136 mmol/L (136-145)
[2023-09-10 21:59] LABS: C Reactive Protein 1.07 mg/dL (<=0.50)
[2023-09-10 23:24] VITALS: BP 170/98; PULSE 94; RESP 16; O2SAT 97
== END 2023-09-10 23:24 | disposition home or self-care (01) ==
PROVIDERS: Emergency Provider Internal Medicine; PCP Family Medicine
DX: J18.9 Pneumonia, unspecified organism (principal); N17.9 Acute kidney failure, unspecified; E87.6 Hypokalemia; E83.42 Hypomagnesemia; H10.9 Unspecified conjunctivitis; K52.9 Noninfective gastroenteritis and colitis, unspecified; Z79.899 Other long term (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; Z79.4 Long term (current) use of insulin; Z79.890 Hormone replacement therapy; Z20.822 Contact with and (suspected) exposure to COVID-19
CPT/HCPCS: 36415; 72040; 72100; 73562; 80048; 85025; 85652; 86140; 96372; 99285; J1885

== ENCOUNTER 2024-01-14 13:04 | Outpatient (RCR) | payer MEDICARE, MEDICAID, SELFPAY | END 2024-02-17 11:38 | disposition home or self-care (01) | LOC: PT 13:04 | PROVIDERS: PCP Nurse Practitioner Family; Visit Provider Nurse Practitioner Family | DX: M54.30 Sciatica, unspecified side (principal) | CPT/HCPCS: 97110; 97140; 97162; G0283 ==

== ENCOUNTER 2024-01-30 13:39 | Outpatient (OUT) | payer MEDICARE, SELFPAY ==
--- OUTSIDE RECORDS SUMMARY | 2024-01-30 14:01 | XMS_ITS | CCD ---
Author Organization [facility] Informat ion Partnership [facility] Care Team Providers Care Airfield Manager Name Role Phone JEFF CARLOS Primary Care Physician [phone] MD Ayden Freeman Primary Care Provider Al MD Mary Jane Campbell Admit Provider MD Sarah Osuna Other Provider MD Xin Phan Attending Provider DO Jair Gabriel Emergency Provider [phone] MD Luke Moran Admit Provider MD Lupe [...] LYDIA, DR AYDEN Haney Primary Care Unavailable TENZIN ., DR PORSHA Winn Attending Unavailable TENZIN ., DR PORSHA Winn Admitting Unavailable PHI, DR CAROL Huffman Consulting Unavailable LYDIA, DR AYDEN Haney Attending Unavailable LYDIA, DR AYDEN Haney Admitting Unavailable LYDIA, DR AYDEN Haney Primary Care Unavailable LYDIA, DR AYDEN Haney Consulting Unavailable CHANEL ., JOSE JUAN US Consulting UnavailXIN Tavares Consulting Unavailable JEMMA WALKER Consulting Unavailable LYDIA, DR AYDEN Haney Consulting Unavailable LYDIA, DR AYDEN Haney Primary Care Unavailable NADEREArmida, DR AYDEN Haney Attending Unavailable NADEREArmida, DR AYDEN Haney Admitting Unavailable NADERER, DR AYDEN Haney Consulting Unavailable NADERER, DR AYDEN Haney Primary Care Unavailable NADERER, DR AYDEN Haney Attending Unavailable NADERER, DR AYDEN Haney Admitting Unavailable NADERER, DR AYDEN Haney Primary Care Unavailable APLING, VICK Lerner Attending Unavailable APLING, VICK Lerner Admitting Unavailable ZIEBER, DR CAROL Huffman Consulting Unavailable HAY ., DR BUTT Attending Unavailable HAY ., DR BUTT Admitting Unavailable NADERER, DR AYDEN Haney Primary Care Unavailable HAY ., DR BUTT Consulting Unavailable AMBROCIO, ABBIE Consulting Unavailable MATTHEW, DR MASON Huffman Consulting Unavailable MATTHEW, DR MASON Huffman Attending Unavailable MATTHEW, DR MASON Huffman Admitting Unavailable NADEREArmida, DR AYDEN Haney Primary Care Unavailable AHDOOT, JENNIFER Consulting Unavailable BROWN, ROSELIA Consulting Unavailable PEDRAZA, TANNER Consulting Unavailable CHIKIS ., HINA Consulting Unavailable LYDIA, DR AYDEN Haney Primary Care Unavailable CHIKIS ., HINA Attending Unavailable CHIKIS ., HINA Admitting Unavailable NADEREArmida, DR AYDEN Haney Primary Care Unavailable CHIKIS ., HINA Attending Unavailable CHIKIS ., HINA Admitting Unavailable Kequan, Ramesh Haney Attending Unavailable Kequan, Ramesh Haney Admitting Unavailable Nadmick, Ayden Primary Care Unavailable NADEREArmida, AYDEN Attending Unavailable Allergies Allergy Classification Reported Allergen(s) Allergy Type Date of Onset Reaction(s) Facility (8 sources) metFORMIN; Translations: [metformin] Drug Allergy [address] [facility] (6 sources) Prochlorperazine; Translations: [prochlorperazine] Drug Allergy [address] [facility] (2 sources) Prochlorperazine Drug Allergy [facility] Medications Current Medications Medication Drug Class(es) [...] PO Q6H 0 April 04, 2022 12:00am [id number] 200 actuat albuterol 0.09 mg/actuat metered dose [...] by mouth four times daily Hydrocodone-Aceta minophen ([place]) 5-325 mg Tablet Discontinued 1 TAB PO [...] daily Dexamethasone Discontinued 6 MG PO Daily 6 6 March 16, 2022 12:00am April 02, 2022 6:07pm [...] 09, 2022 12:27pm Sliding Scale ACHS nystatin [id number] unt/ml oral suspension (10 sources) Polyene Antifungal [...] mg) Capsule Discontinued 220 MG PO Daily 31 7 March 16, 2022 12:00am April 02, 2022 6:08pm [...] disease (1 source) Atherosclerotic heart disease of [place] coronary artery without angina pectoris; 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 Comment on above: Performed By: #### T SH, BMP #### [facility] [address] [place] [address] Dr. Ladan Diehl Basophils/100 WBC (Bld) 1.2 % Normal 0.2-2.0 [facility] Comment on above: Performed By: #### T SH, BMP #### [facility] [address] [place] [address] Dr. Ladan Diehl EO # 0.4 103/ul Normal 0.0-0.7 [facility] Comment on above: Performed By: #### T SH, BMP #### [facility] [address] [place] [address] Dr. Ladan Diehl Eosinophils/100 WBC (Bld) 4.9 % Normal 0.9-7.0 [facility] Comment on above: Performed By: #### T SH, BMP #### [facility] [address] [place] [address] Dr. Ladan Diehl Erythrocyte distribution width (RBC) [Ratio] 14.8 % Normal 11.0-15.0 [facility] Comment on above: Performed By: #### T SH, BMP #### [facility] [address] [place] [address] Dr. Ladan Diehl Hematocrit (Bld) [Volume fraction] 36.7 % Critically low 42.0-54.0 [facility] Comment on above: Performed By: #### T SH, BMP #### [facility] [address] [place] [address] Dr. Ladan Diehl Hemoglobin (Bld) [Mass/Vol] 12.0 g/dL Critically low 14.0-18.0 [facility] Comment on above: Performed By: #### T SH, BMP #### [facility] [address] [place] [address] Dr. Ladan Diehl IG # 0.01 10e3/ul Normal 0.00-0.03 [facility] Comment on above: Performed By: #### T SH, BMP #### [facility] [address] [place] [address] Dr. Ladan Diehl IG % 0.1 % Normal 0.0-0.5 [facility] Comment on above: Performed By: #### T SH, BMP #### [facility] [address] [place] [address] Dr. Ladan Diehl LYMPH # 2.0 103/ul Normal 1.2-3.8 [facility] Comment on above: Performed By: #### T SH, BMP #### [facility] [address] [place] [address] Dr. Ladan Diehl Lymphocytes/100 WBC (Bld) 27.1 % Normal 20.5-60.0 [facility] Comment on above: Performed By: #### T STEFF, BMP #### [facility] [address] [place] [address] Dr. Ladan Diehl MANUAL DIFF REQ NO Normal [facility] Comment on above: Performed By: #### T SH, BMP #### [facility] [address] [place] [address] Dr. Ladan Diehl MCH (RBC) [Entitic mass] 29.6 pg Normal 25.9-34.0 [facility] Comment on above: Performed By: #### T STEFF, BMP #### [facility] [address] [place] [address] Dr. Ladan Diehl MCHC (RBC) [Mass/Vol] 32.7 g/dL Normal 29.9-35.2 [facility] Comment on above: Performed By: #### T STEFF, BMP #### [facility] [address] [place] [address] Dr. Ladan Diehl MCV (RBC) [Entitic vol] 90.6 fL Normal 80.0-94.0 [facility] Comment on above: Performed By: #### T SH, BMP #### [facility] [address] [place] [address] Dr. Ladan Diehl MONO # 0.8 103/ul Normal 0.3-0.8 [facility] Comment on above: Performed By: #### T SH, BMP #### [facility] [address] [place] [address] Dr. Ladan Diehl Monocytes/100 WBC (Bld) 10.4 % Normal 1.7-12.0 [facility] Comment on above: Performed By: #### T SH, BMP #### [facility] [address] [place] [address] Dr. Ladan Diehl NEUT # 4.2 103/ul Normal 1.4-6.5 [facility] Comment on above: Performed By: #### T SH, BMP #### [facility] [address] [place] [address] Dr. Ladan Diehl Neutrophils/100 WBC (Bld) 56.3 % Normal 43.0-75.0 [facility] Comment on above: Performed By: #### T SH, BMP #### [facility] [address] [place] [address] Dr. Ladan Diehl Platelet mean volume (Bld) [Entitic vol] 9.9 fL Normal 9.5-13.5 [facility] Comment on above: Performed By: #### T SH, BMP #### [facility] [address] [place] [address] Dr. Ladan Diehl PLT 227 103/ul Normal 150-450 [facility] Comment on above: Performed By: #### T SH, BMP #### [facility] [address] [place] [address] Dr. Ladan Diehl RBC 4.05 106/ul Critically low 4.70-6.10 [facility] Comment on above: Performed By: #### T SH, BMP #### [facility] [address] [place] [address] Dr. Ladan Diehl WBC 7.4 103/ul Normal 4.0-11.0 [facility] Comment on above: Performed By: #### T SH, BMP #### [facility] [address] [place] [address] Dr. Ladan Diehl FREE T3on 12-19-2022 FREE T3 2.07 pg/mlL Critically low 2.18-3.98 [facility] Comment on above: Performed By: #### T SH, BMP #### [facility] [address] [address] [address] Ladan Diehl FREE T4on 12-19-2022 Free T4 [Mass/Vol] 1.14 ng/dL Normal 0.76-1.46 [facility] Comment on above: Performed By: #### T SH, BMP #### [facility] [address] [place] [address] Dr. Ladan Diehl GLYCOHEMOGLOBIN A1Con 2022 ADA RECOMMENDATION SEE BELOW Normal [facility] Comment on above: Result Comment: ADA RECOMMENDED LIMIT 4.0 - 6.0 ADA THERAPEUTIC TARGET < 7.0 ACTION SUGGESTED > 7.0 Performed By: #### T SH, BMP #### [facility] [address] [place] [address] Dr. Ladan Diehl Glucose [Mass/Vol] 134 mg/dL Normal [facility] Comment on above: Performed By: #### T SH, BMP #### [facility] [address] [place] [address] Dr. Ladan Diehl HbA1c (Bld) [Mass fraction] 6.3 % Critically high 4.5-6.2 [facility] Comment on above: Performed By: #### T SH, BMP #### [facility] [address] [place] [address] Dr. Ladan Diehl LIPID PROFILEon 12-19-2022 CHOL-HDL RATIO NORM SEE BELOW Normal [facility] Comment on above: Result Comment: 3.3 - 4.4 LOW RISK 4.4 - 7.1 AVERAGE RISK 7.1 - 11.0 MODERATE RISK >11.0 HIGH RISK Performed By: #### T SH, BMP #### [facility] [address] [place] [address] Dr. Ladan Diehl Cholesterol [Mass/Vol] 118 mg/dL Normal <=200 [facility] Comment on above: Performed By: #### T SH, BMP #### [facility] [address] [place] [address] Dr. Ladan Diehl Cholesterol in HDL [Mass/Vol] 43 mg/dL Normal 40-60 [facility] Comment on above: Performed By: #### T SH, BMP #### [facility] [address] [address] [address] Ladan Diehl Cholesterol in LDL [Mass/Vol] 48.8 mg/dL Normal [facility] Comment on above: Performed By: #### T SH, BMP #### [facility] [address] [place] [address] Dr. Ladan Diehl Cholesterol.total/Choles terol in HDL [Mass ratio] 2.7 {ratio} Normal [facility] Comment on above: Performed By: #### T SH, BMP #### [facility] [address] [place] [address] Dr. Ladan Diehl HDL NORMAL > or = 60 mg/dl - LOW CARDIOVASCULAR RISK <40 mg/dl - HIGH CARDIOVASCULAR RISK Normal [facility] Comment on above: Performed By: #### T SH, BMP #### [facility] [address] [place] [address] Dr. Ladan Diehl LDL CALC NORMAL SEE BELOW Normal [facility] Comment on above: Result Comment: <100 mg/dl OPTIMAL 100 - 129 mg/dl NEAR OR ABOVE OPTIMAL 130 - 159 mg/dl BORDERLINE HIGH 160 - 189 mg/dl HIGH >190 mg/dl VERY HIGH Performed By: #### T SH, BMP #### [facility] [address] [place] [address] Dr. Ladan Diehl Triglyceride [Mass/Vol] 131 mg/dL Normal <=150 [facility] Comment on above: Performed By: #### T SH, BMP #### [facility] [address] [place] [address] Dr. Ladan Diehl VLDL CALC 26.2 mg/dL Normal [facility] Comment on above: Performed By: #### T SH, BMP #### [facility] [address] [place] [address] Dr. Ladan Diehl LIVER PROFILEon 12-19-2022 Albumin [Mass/Vol] 2.7 g/dL Critically low 3.4-5.0 [facility] Comment on above: Performed By: #### T SH, BMP #### [facility] [address] [place] [address] Dr. Ladan Diehl Albumin/Globulin [Mass ratio] 0.4 {ratio} Normal [facility] Comment on above: Performed By: #### T SH, BMP #### [facility] [address] [place] [address] Dr. Ladan Dielh ALP [Catalytic activity/Vol] 154 U/L Critically high 46-116 [facility] Comment on above: Performed By: #### T SH, BMP #### [facility] [address] [place] [address] Dr. Ladan Diehl ALT [Catalytic activity/Vol] 25 U/L Normal 16-63 [facility] Comment on above: Performed By: #### T SH, BMP #### [facility] [address] [place] [address] Dr. Ladan Diehl AST [Catalytic activity/Vol] 38 U/L Critically high 15-37 [facility] Comment on above: Performed By: #### T SH, BMP #### [facility] [address] [place] [address] Dr. Ladan Diehl BILI, CONJUGATED 0.2 mg/dL Normal 0.0-0.2 [facility] Comment on above: Performed By: #### T SH, BMP #### [facility] [address] [place] [address] Dr. Ladna Diehl Bilirubin [Mass/Vol] 0.8 mg/dL Normal 0.2-1.0 [facility] Comment on above: Performed By: #### T SH, BMP #### [facility] [address] [place] [address] Dr. Ladan Diehl Globulin (S) [Mass/Vol] 6.2 g/dL Normal [facility] Comment on above: Performed By: #### T SH, BMP #### [facility] [address] [place] [address] Dr. Ladan Diehl Protein [Mass/Vol] 8.9 g/dL Critically high 6.4-8.2 [facility] Comment on above: Performed By: #### T SH, BMP #### [facility] [address] [place] [address] Dr. Ladan Diehl MICROALBUMIN, RAND URon 12-09 mALB 25.4 mg/dL Normal <=30.0 [facility] Comment on above: Performed By: #### T SH, BMP #### [facility] [address] [place] [address] Dr. Ladan Diehl PROF CHEM 8 (BAS METB)on Anion gap [Moles/Vol] 10.7 mmol/L Normal [facility] Comment on above: Performed By: #### T SH, BMP #### [facility] [address] [place] [address] Dr. Ladan Diehl Calcium [Mass/Vol] 9.0 mg/dL Normal 8.5-10.1 [facility] Comment on above: Performed By: #### T SH, BMP #### [facility] [address] [place] [address] Dr. Ladan Diehl Chloride [Moles/Vol] 103 mmol/L Normal 98-107 [facility] Comment on above: Performed By: #### T SH, BMP #### [facility] [address] [place] [address] Dr. Ladan Diehl CO2 [Moles/Vol] 27.5 mmol/L Normal 21.0-32.0 [facility] Comment on above: Performed By: #### T SH, BMP #### [facility] [address] [place] [address] Dr. Ladan Diehl Creatinine [Mass/Vol] 1.29 mg/dL Normal 0.70-1.30 [facility] Comment on above: Performed By: #### T SH, BMP #### [facility] [address] [place] [address] Dr. Ladan Diehl EGFR-AF OMANI >60 Normal >=60 [facility] Comment on above: Performed By: #### T SH, BMP #### [facility] [address] [place] [address] Dr. Ladan Diehl EGFR-NON AF OMANI 56 mL/min/1.73m2 Critically low >=60 [facility] Comment on above: Performed By: #### T SH, BMP #### [facility] [address] [address] [address] Ladan Diehl Glucose [Mass/Vol] 108 mg/dL Critically high 74-106 [facility] Comment on above: Performed By: #### T SH, BMP #### [facility] [address] [address] [address] Ladan Diehl Potassium [Moles/Vol] 4.2 mmol/L Normal 3.5-5.1 [facility] Comment on above: Performed By: #### T STEFF, BMP #### [facility] [address] [place] [address] Dr. Ladan Diehl Sodium [Moles/Vol] 137 mmol/L Normal 136-145 [facility] Comment on above: Performed By: #### T STEFF, BMP #### [facility] [address] [place] [address] Dr. Ladan Diehl Urea nitrogen [Mass/Vol] 12.0 mg/dL Normal 7.0-18.0 [facility] Comment on above: Performed By: #### T , BMP #### [facility] [address] [place] [address] Dr. Ladan Diehl Urea nitrogen/Creatinine [Mass ratio] 9.3 mg/mg Normal [facility] Comment on above: Performed By: #### T , BMP #### [facility] [address] [place] [address] Dr. Ladan Diehl TSHon 12-19-2022 TSH 8.668 uIU/mL Critically high 0.358-3.740 [facility] Comment on above: Performed By: #### T STEFF, BMP #### [facility] [address] [place] [address] Dr. Ladan Diehl GLYCOHEMOGLOBIN A1Con 2021 ADA RECOMMENDATION SEE BELOW Normal [facility] Comment on above: Result Comment: ADA RECOMMENDED LIMIT 4.0 - 6.0 ADA THERAPEUTIC TARGET < 7.0 ACTION SUGGESTED > 7.0 Performed By: #### A 1C #### [facility] [address] [place] [address] Dr. Ladan Diehl Glucose [Mass/Vol] 140 mg/dL Normal [facility] Comment on above: Performed By: #### A 1C #### [facility] [address] [place], [place] [address] Dr. Ladan Diehl HbA1c (Bld) [Mass fraction] 6.5 % Critically high 4.5-6.2 [facility] Comment on above: Performed By: #### A 1C #### [facility] [address] [place], [place] [address] CSPINE WO CONon CT CSPINE WO CON EXAMINATION: CT CSPINE [...] by: CAROL YIP Date: 2022-05-17 13:[address] [facility] CT HEAD WO CONon 05-17-2022 CT [...] by: CAROL YIP Date: 2022-05-17 13:[address] [facility] XR CHEST 1 Von 05-17-2022 XR [...] by: ABBIE AMBROCIO Date: 2022-05-17 12:[address] [facility] Progress Noteson 05-03-2022 [employer] Authentication Interface Message Text EMERGENCY TRIAGE, TREAT AND TRANSPORT (ET3) DOCUMENTATION OF TELEHEALTH VISIT Date / Time: 05/01/2022599 Name: Evelin Patterson : 1955 SSN: [id number] EMS Agency: [facility] [x] Verbal consent obtained [] Implied [...] Completed by: Peter Molina, DO Normal [facility] [employer] [facility] Activated partial thrombopla stin time (aPTT) in platelet poor plasma by coagulation aOrdered By: Ramesh Byrd on 04-12-2022 aPTT Coag (PPP) [Time] 24.8 s 25.1-36.5 [facility] Automated erythrocytes count in urine sediment (number/area)Ordered By: Ramesh Byrd on 04-12-2022 RBC Auto (Urine sed) [#/Area] 20-49 [HPF] 0-4 [facility] Automated leukocytes count i n urine sediment (number/area)Ordered By: Ramesh Byrd on 04-12-2022 WBC Auto (Urine sed) [#/Area] 1-2 [HPF] 0-4 [facility] B-Type Natriuretic Peptideon 04-12-2022 Natriuretic peptide B (Bld) [Mass/Vol] 196.0 pg/mL High 5-100 [facility] Comment on above: Result Comment: PERF ORMED BY: [facility] [address] [place] [address] PATHOLOGIST BOOTMAKER HAND CHARLENE HERNANDEZ M.D. Performed By: #### C MP, TSH3, PT, HS TROP, PTT, BNP, MG, CBC #### [facility] [address] Basophils Auto (Bld) [#/Vol] Ordered By: Ramesh Byrd on 04-12-2022 Basophils (Bld) [#/Vol] 0.0 10*3/uL 0.0-0.2 [facility] Basophils/100 WBC Auto (Bld) Ordered By: Ramesh Byrd on 04-12-2022 Basophils/100 WBC (Bld) 0.6 % . F [facility] Bilirubin Test strip Ql (U)O rdered By: Ramesh Byrd on 04-12-2022 Bilirubin Ql (U) Negative Negative [facility] Blood hemoglobin measurement (mass/volume)Ordered By: Ramesh Byrd on 04-12-2022 Hemoglobin (Bld) [Mass/Vol] 12.2 g/dL 13.0-17.0 [facility] Blood leukocytes automated c ount (number/volume)Ordered By: Ramesh Byrd on 04-12-2022 WBC (Bld) [#/Vol] 6.4 10*3/uL 4.5-11.0 [facility] Body fluid albumin measureme nt (mass/volume)Ordered By: Ramesh Byrd on 04-12-2022 Albumin (Body fld) [Mass/Vol] 2.3 g/dL 3.2-5.5 [facility] Color Auto (U)Ordered By: Andi Byrd on 04-12-2022 Color (U) Yellow Yellow [facility] Complete Blood Count Auto Di ffon 04-12-2022 Basophils (Bld) [#/Vol] 0.0 10*3/uL Normal 0.0-0.2 [facility] Comment on above: Result Comment: PERF ORMED BY: [place] [address] PATHOLOGIST [employer]OTMAK[employer] CHARLENE HERNANDEZ M.D. Performed By: #### C MP, TSH3, PT, HS TROP, PTT, BNP, MG, CBC #### [facility] [address] [place] [address] Basophils/100 WBC (Bld) 0.6 % Normal . [facility] Comment on above: Performed By: #### C MP, TSH3, PT, HS TROP, PTT, BNP, MG, CBC #### [address] Eosinophils (Bld) [#/Vol] 0.2 10*3/uL Normal 0.0-0.45 [facility] Comment on above: Performed By: #### C MP, TSH3, PT, HS TROP, PTT, BNP, MG, CBC #### [address] Eosinophils/100 WBC (Bld) 2.7 % Normal . [facility] Comment on above: Performed By: #### C MP, TSH3, PT, HS TROP, PTT, BNP, MG, CBC #### [address] Erythrocyte distribution width (RBC) [Ratio] 16.7 % High 12.0-14.8 [facility] Comment on above: Performed By: #### C MP, TSH3, PT, HS TROP, PTT, BNP, MG, CBC #### [address] Hematocrit (Bld) [Volume fraction] 36.7 % Low 38.8-50.0 [facility] Comment on above: Performed By: #### C MP, TSH3, PT, HS TROP, PTT, BNP, MG, CBC #### [address] Hemoglobin (Bld) [Mass/Vol] 12.2 g/dL Low 13.0-17.0 [facility] Comment on above: Performed By: #### C MP, TSH3, PT, HS TROP, PTT, BNP, MG, CBC #### [address] Lymphocytes (Bld) [#/Vol] 1.0 10*3/uL Normal 1.00-4.8 [facility] Comment on above: Performed By: #### C MP, TSH3, PT, HS TROP, PTT, BNP, MG, CBC #### [address] Lymphocytes/100 WBC (Bld) 16.1 % Normal . [facility] Comment on above: Performed By: #### C MP, TSH3, PT, HS TROP, PTT, BNP, MG, CBC #### [address] MCH (RBC) [Entitic mass] 31.0 pg Normal 27.5-35.2 [facility] Comment on above: Performed By: #### C MP, TSH3, PT, HS TROP, PTT, BNP, MG, CBC #### [address] MCV (RBC) [Entitic vol] 93.5 fL Normal 83.5-101 [facility] Comment on above: Performed By: #### C MP, TSH3, PT, HS TROP, PTT, BNP, MG, CBC #### [address] Mean Corpuscular HGB Conc 33.1 g/dL Normal 32.5-35.6 [facility] Comment on above: Performed By: #### C MP, TSH3, PT, HS TROP, PTT, BNP, MG, CBC #### [address] Monocytes (Bld) [#/Vol] 0.8 10*3/uL Normal 0.0-0.8 [facility] Comment on above: Performed By: #### C MP, TSH3, PT, HS TROP, PTT, BNP, MG, CBC #### [address] Monocytes/100 WBC (Bld) 12.0 % Normal . [facility] Comment on above: Performed By: #### C MP, TSH3, PT, HS TROP, PTT, BNP, MG, CBC #### [address] Neutrophils (Bld) [#/Vol] 4.4 10*3/uL Normal 1.8-7.7 [facility] Comment on above: Performed By: #### C MP, TSH3, PT, HS TROP, PTT, BNP, MG, CBC #### [address] Neutrophils/100 WBC (Bld) 68.6 % Normal . [facility] [facility] Comment on above: Performed By: #### C MP, TSH3, PT, HS TROP, PTT, BNP, MG, CBC #### [address] Nucleated RBC/100 WBC (Bld) [Ratio] 0.1 % Normal 0-0.5 [facility] Comment on above: Performed By: #### C MP, TSH3, PT, HS TROP, PTT, BNP, MG, CBC #### [address] Platelet mean volume (Bld) [Entitic vol] 8.0 fL Normal 6.6-10.1 [facility] Comment on above: Performed By: #### C MP, TSH3, PT, HS TROP, PTT, BNP, MG, CBC #### [address] Platelets (Bld) [#/Vol] 191 10*3/uL Normal 150-450 [facility] Comment on above: Performed By: #### C MP, TSH3, PT, HS TROP, PTT, BNP, MG, CBC #### [address] RBC (Bld) [#/Vol] 3.93 10*6/uL Normal 3.90-5.60 [facility] Comment on above: Performed By: #### C MP, TSH3, PT, HS TROP, PTT, BNP, MG, CBC #### [address] WBC (Bld) [#/Vol] 6.4 10*3/uL Normal 4.5-11.0 [facility] Comment on above: Performed By: #### C MP, TSH3, PT, HS TROP, PTT, BNP, MG, CBC #### [facility] [address] Comprehensive Metabolic Pane xavier 04-12-2022 Albumin [Mass/Vol] 2.3 g/dL Low 3.2-5.5 [facility] Comment on above: Performed By: #### C MP, TSH3, PT, HS TROP, PTT, BNP, MG, CBC #### [address] Albumin/Globulin [Mass ratio] 0.5 {ratio} Normal [facility] Comment on above: Performed By: #### C MP, TSH3, PT, HS TROP, PTT, BNP, MG, CBC #### [address] ALP [Catalytic activity/Vol] 97 U/L High 32-92 [facility] Comment on above: Performed By: #### C MP, TSH3, PT, HS TROP, PTT, BNP, MG, CBC #### [address] ALT [Catalytic activity/Vol] 34 U/L Normal 10-60 [facility] Comment on above: Performed By: #### C MP, TSH3, PT, HS TROP, PTT, BNP, MG, CBC #### [address] Anion gap [Moles/Vol] 17.1 mmol/L High 6.0-15.0 [facility] Comment on above: Performed By: #### C MP, TSH3, PT, HS TROP, PTT, BNP, MG, CBC #### [address] AST [Catalytic activity/Vol] 136 U/L High 10-42 [facility] Comment on above: Performed By: #### C MP, TSH3, PT, HS TROP, PTT, BNP, MG, CBC #### [address] Bilirubin [Mass/Vol] 1.3 mg/dL High 0.3-1.2 [facility] Comment on above: Result Comment: Samp les from patients who have taken Naproxen have shown spurious elevation in Total Bilirubin levels. A metabolite of Naproxen, O-desmethylnaproxen, has been shown to interfere with the Jendrassik-Grof method for measuring Total Bilirubin. Performed By: #### C MP, TSH3, PT, HS TROP, PTT, BNP, MG, CBC #### [address] Calcium [Mass/Vol] 8.6 mg/dL Normal 8.2-10.2 [facility] Comment on above: Performed By: #### C MP, TSH3, PT, HS TROP, PTT, BNP, MG, CBC #### [facility] [address] Chloride [Moles/Vol] 97 mmol/L Normal 95-114 [facility] Comment on above: Performed By: #### C MP, TSH3, PT, HS TROP, PTT, BNP, MG, CBC #### [facility] [address] CO2 [Moles/Vol] 25.4 mmol/L Normal 22.0-30.0 [facility] Comment on above: Performed By: #### C MP, TSH3, PT, HS TROP, PTT, BNP, MG, CBC #### [facility] [address] [place] [id number] [facility] Creatinine [Mass/Vol] 1.14 mg/dL Normal 0.64-1.27 [facility] Comment on above: Performed By: #### C MP, TSH3, PT, HS TROP, PTT, BNP, MG, CBC #### [facility] [address] Creatinine Clr Calc Pharmacy 97.67 [facility] Comment on above: Performed By: #### C MP, TSH3, PT, HS TROP, PTT, BNP, MG, CBC #### [facility] [address] Estimated GFR ( Lilibeth > 60 [facility] Comment on above: Result Comment: GFR estimated reference range: According to KDOQI guidelines, <60 ml/min/1.73m2 is sufficient to diagnose a patient with chronic kidney disease. Performed By: #### C MP, TSH3, PT, HS TROP, PTT, BNP, MG, CBC #### [facility] [address] Estimated GFR (Non- Am > 60 Normal [facility] Comment on above: Performed By: #### C MP, TSH3, PT, HS TROP, PTT, BNP, MG, CBC #### [facility] [address] Globulin (S) [Mass/Vol] 4.7 g/dL Normal [facility] Comment on above: Performed By: #### C MP, TSH3, PT, HS TROP, PTT, BNP, MG, CBC #### [address] Glucose [Mass/Vol] 164 mg/dL High 70-100 [facility] Comment on above: Result Comment: [place] Glucose Reference Range is dependent on time and content of last meal. Glucose of more than 200 mg/dL in a nonstressed, ambulatory subject supports the diagnosis of Diabetes Mellitus. ADA recommended reference range Performed By: #### C MP, TSH3, PT, HS TROP, PTT, BNP, MG, CBC #### [address] Potassium [Moles/Vol] 3.5 mmol/L Normal 3.5-5.1 [facility] Comment on above: Performed By: #### C MP, TSH3, PT, HS TROP, PTT, BNP, MG, CBC #### [facility] [address] Protein [Mass/Vol] 7.0 g/dL Normal 6.1-7.9 [facility] Comment on above: Performed By: #### C MP, TSH3, PT, HS TROP, PTT, BNP, MG, CBC #### [address] Sodium [Moles/Vol] 136 mmol/L Normal 136-146 [facility] Comment on above: Performed By: #### C MP, TSH3, PT, HS TROP, PTT, BNP, MG, CBC #### [facility] [address] [place] [address] [place] Urea nitrogen [Mass/Vol] 13 mg/dL Normal 05-03 [facility] Comment on above: Performed By: #### C MP, TSH3, PT, HS TROP, PTT, BNP, MG, CBC #### [facility] [address] [place] [address] [place] Creatinine and Glomerular fi ltration rate.predicted panel (S/P/Bld)Ordered By: Ramesh Byrd on 04-12-2022 Creatinine [Mass/Vol] 1.14 mg/dL 0.64-1.27 [facility] Dipstick and Microscopicon 0 04-12-2022 Appearance (U) Clear Normal Clear [facility] Comment on above: Order Comment: Name Collection Type:: Clean-Voided Midstream Performed By: #### A DDONUAPLUS #### [address] Bacteria,Urine None Seen Normal None Seen [facility] Comment on above: Order Comment: Name Collection Type:: Clean-Voided Midstream Performed By: #### A DDONUAPLUS #### [place] [address] [place] Bilirubin,Urine Negative Normal Negative [facility] Comment on above: Order Comment: Name Collection Type:: Clean-Voided Midstream Performed By: #### A DDONUAPLUS #### [place] [address] [place] Color (U) Yellow Normal Yellow [facility] Comment on above: Order Comment: Name Collection Type:: Clean-Voided Midstream Performed By: #### A DDONUAPLUS #### [place] [address] [place] Glucose Ql (U) Normal Normal Normal [facility] Comment on above: Order Comment: Name Collection Type:: Clean-Voided Midstream Performed By: #### A DDONUAPLUS #### [address] [place] [address] [place] Hyaline Casts,Urine 0-8 Normal 0-8 [facility] Comment on above: Order Comment: Name Collection Type:: Clean-Voided Midstream Result Comment: PERF ORMED BY: [place] [address] PATHOLOGIST [employer]OT[employer] CHARLENE HERNANDEZ M.D. Performed By: #### A DDONUAPLUS #### [address] Ketones Ql (U) Trace High Negative [facility] Comment on above: Order Comment: Name Collection Type:: Clean-Voided Midstream Performed By: #### A DDONUAPLUS #### [address] Leukocyte esterase Test strip Ql (U) Negative Normal Negative [facility] Comment on above: Order Comment: Name Collection Type:: Clean-Voided Midstream Performed By: #### A DDONUAPLUS #### [address] Nitrite,Urine Negative Normal Negative [facility] Comment on above: Order Comment: Name Collection Type:: Clean-Voided Midstream Performed By: #### A DDONUAPLUS #### [address] Occult Blood,Urine 2+ High Negative [facility] Comment on above: Order Comment: Name Collection Type:: Clean-Voided Midstream Result Comment: PERF ORMED BY: [place] [address] PATHOLOGIST [employer] CHARLENE HERNANDEZ M.D. Performed By: #### A DDONUAPLUS #### [place] [address] [place] pH (U) 6.5 [pH] Normal 5.0-9.0 [facility] Comment on above: Order Comment: Name Collection Type:: Clean-Voided Midstream Performed By: #### A DDONUAPLUS #### [place] [address] [place] Protein (U) [Mass/Vol] 100 mg/dL High Negative [facility] Comment on above: Order Comment: Name Collection Type:: Clean-Voided Midstream Performed By: #### A DDONUAPLUS #### [facility] [address] [place] [address] RBC,Urine 20-49 High 0-4 [facility] Comment on above: Order Comment: Name Collection Type:: Clean-Voided Midstream Performed By: #### A DDONUAPLUS #### [address] Specificy Muir,Urine 1.020 Normal 1.001-1.030 [facility] Comment on above: Order Comment: Name Collection Type:: Clean-Voided Midstream Performed By: #### A DDONUAPLUS #### [facility] [address] [place] [address] Squamous Epithelial Cell,Urine 0-1 Normal 0-2 [facility] Comment on above: Order Comment: Name Collection Type:: Clean-Voided Midstream Performed By: #### A DDONUAPLUS #### [facility] [address] [place] [address] Urobilinogen,Urine Normal Normal Normal [facility] Comment on above: Order Comment: Name Collection Type:: Clean-Voided Midstream Performed By: #### A DDONUAPLUS #### [facility] [address] [place] [address] [place] WBC,Urine 1-2 Normal 0-4 [facility] Comment on above: Order Comment: Name Collection Type:: Clean-Voided Midstream Performed By: #### A DDONUAPLUS #### [facility] [address] [place] [address] [place] ECG 12 lead ECGon 04-12-2022 ECG 12 lead ECG [facility] [place] [address] [place] [address] Electrocardiograph Report Signed Patient: Evelin Patterson MR#: [id number] 005 : 1955 Acct:[id number] Age/Sex: 66 / M ADM Date: 04/12/22 Loc: ER Room: Type: [facility] ER Attending Dr: Ordering Provider: Ramesh Byrd [...] Prolonged QT Confirmed by Ramesh BYRD DO ([id number]) on 04/12/2022 4:38:01 PM Referred By: Electronically Signed By:Ramesh BYRD DO Transcribed By: MUS Signed By Ramesh Byrd DO 0 04/12/22 1638 Normal [facility] Eosinophils Auto (Bld) [#/Vo l]Ordered By: Ramesh Byrd on 04-12-2022 Eosinophils (Bld) [#/Vol] 0.2 10*3/uL 0.0-0.45 [facility] Eosinophils/100 WBC Auto (Bl d)Ordered By: Ramesh Byrd on 04-12-2022 Eosinophils/100 WBC (Bld) 2.7 % . [facility] Erythrocyte distribution wid th Auto (RBC) [Ratio]Ordered By: Ramesh Byrd on 04-12-2022 Erythrocyte distribution width (RBC) [Ratio] 16.7 % 12.0-14.8 [facility] Estimated glomerular filtrat ion rate (GFR) non- AmericanOrdered By: Ramesh Byrd on 04-12-2022 GFR/1.73 sq M.predicted among non-blacks MDRD (S/P/Bld) [Vol rate/Area] > 60 mL/Min [facility] Globulin Calc (S) [Mass/Vol] Ordered By: Ramesh Byrd on 04-12-2022 Globulin (S) [Mass/Vol] 4.7 g/dL [facility] Glucose Glucometer (BldC) [M ass/Vol]Ordered By: Ramesh Byrd on 04-12-2022 Glucose [Mass/Vol] 168 mg/dL [facility] Comment on above: Random Glucose Refer ence Range is dependent on time and content of last meal. Glucose of more than 200 mg/dL in a nonstressed, ambulatory subject supports the diagnosis of Diabetes Mellitus. Glucose Poct Glucometerson 0 04-12-2022 Glucose [Mass/Vol] 168 mg/dL Normal [facility] Comment on above: Result Comment: [facility] Glucose Reference Range is dependent on time and content of last meal. Glucose of more than 200 mg/dL in a nonstressed, ambulatory subject supports the diagnosis of Diabetes Mellitus. PERFORMED BY: [facility] [place] [address] PATHOLOGIST [employer] CHARLENE HERNANDEZ M.D. Performed By: #### G LULS #### Point of Care testing , Hematocrit Auto (Bld) [Volum e fraction]Ordered By: Ramesh Byrd on 04-12-2022 Hematocrit (Bld) [Volume fraction] 36.7 % 38.8-50.0 [facility] Ketones Auto test strip (U) [Mass/Vol]Ordered By: Ramesh Byrd on 04-12-2022 Ketones (U) [Mass/Vol] Trace Negative [facility] Laboratory - Chemistry and C hemistry - challengeOrdered By: Ramesh Byrd on 04-12-2022 Magnesium [Mass/Vol] 1.3 mg/dL 1.6-2.6 [facility] Natriuretic peptide B (Bld) [Mass/Vol] 196.0 pg/mL 5-100 [facility] Laboratory - CoagulationOrde red By: Ramesh Byrd on 04-12-2022 PT Coag (PPP) [Time] 12.5 s 9.0-12.9 [facility] Laboratory - Hematology and Cell countsOrdered By: Ramesh Byrd on 04-12-2022 Nucleated RBC/100 WBC (Bld) [Ratio] 0.1 % 0-0.5 [facility] Laboratory - UrinalysisOrder ed By: Ramesh Byrd on 04-12-2022 Hyaline casts LM Ql (Urine sed) 0-8 [LPF] 0-8 [facility] Lymphocytes Auto (Bld) [#/Vo l]Ordered By: Ramesh Byrd on 04-12-2022 Lymphocytes (Bld) [#/Vol] 1.0 10*3/uL 1.00-4.8 [facility] Lymphocytes/100 WBC Auto (Bl d)Ordered By: Ramesh Byrd on 04-12-2022 Lymphocytes/100 WBC (Bld) 16.1 % . [facility] MCH Auto (RBC) [Entitic mass ]Ordered By: Ramesh Byrd on 04-12-2022 MCH (RBC) [Entitic mass] 31.0 pg 27.5-35.2 [facility] MCHC Auto (RBC) [Mass/Vol]Or dered By: Ramesh Byrd on 04-12-2022 MCHC (RBC) [Mass/Vol] 33.1 g/dL 32.5-35.[address] [facility] MCV Auto (RBC) [Entitic vol] Ordered By: Ramesh Byrd on 04-12-2022 MCV (RBC) [Entitic vol] 93.5 fL 83.5-101 [facility] Magnesiumon 04-12-2022 Magnesium [Mass/Vol] 1.3 mg/dL Low 1.6-2.6 [facility] Comment on above: Performed By: #### G LULS #### Point of Care testing , Monocytes Auto (Bld) [#/Vol] Ordered By: Ramesh Byrd on 04-12-2022 Monocytes (Bld) [#/Vol] 0.8 10*3/uL 0.0-0.8 [facility] Monocytes/100 WBC Auto (Bld) Ordered By: Ramesh Byrd on 04-12-2022 Monocytes/100 WBC (Bld) 12.0 % . [facility] Neutrophils Auto (Bld) [#/Vo l]Ordered By: Ramesh Byrd on 04-12-2022 Neutrophils (Bld) [#/Vol] 4.4 10*3/uL 1.8-7.7 [facility] Neutrophils/100 WBC Auto (Bl d)Ordered By: Ramesh Byrd on 04-12-2022 Neutrophils/100 WBC (Bld) 68.6 % . [facility] Nitrite Test strip Ql (U)Ord ered By: Ramesh Byrd on 04-12-2022 Nitrite Ql (U) Negative Negative [facility] No Panel InformationOrdered By: Ramesh Byrd on 04-12-2022 Estimated GFR () > 60 mL/Min [facility] Comment on above: GFR estimated refere nce range: According to KDOQI guidelines, <60 ml/min/1.73m2 is sufficient to diagnose a patient with chronic kidney disease. Pharmacy Creatinine Clearance (Chem 97.67 [facility] Partial Thromboplastin Timeo n 04-12-2022 aPTT Coag (Bld) [Time] 24.8 s Low 25.1-36.5 [facility] Comment on above: Result Comment: PERF ORMED BY: [facility] [address] [place] [address] PATHOLOGIST [employer] CHARLENE HERNANDEZ M.D. Performed By: #### C MP, TSH3, PT, HS TROP, PTT, BNP, MG, CBC #### [address] Platelet mean volume Auto (B ld) [Entitic vol]Ordered By: Ramesh Byrd on 04-12-2022 Platelet mean volume (Bld) [Entitic vol] 8.0 fL 6.6-10.1 [facility] Platelet poor plasma interna tional normalized ratio (INR) by coagulation assay (relatOrdered By: Ramesh Byrd on 04-12-2022 INR Coag (PPP) [Relative time] 1.1 {INR} [facility] Comment on above: INR Therapeutic Rang e [...] 04-12-2022 Platelets (Bld) [#/Vol] 191 10*3/uL 150-450 [facility] Protein Auto test strip (U) [Mass/Vol]Ordered By: Ramesh Byrd on 04-12-2022 Protein (U) [Mass/Vol] 100 mg/dL Negative [facility] Protein [Mass/volume] in Ser um or PlasmaOrdered By: Ramesh Byrd on 04-12-2022 Protein [Mass/Vol] 7.0 g/dL 6.1-7.9 [facility] Prothrombin Time INRon 04-12 INR Coag (PPP) [Relative time] 1.1 {INR} Normal [facility] Comment on above: Result Comment: INR Therapeutic [...] HS TROP, PTT, BNP, MG, CBC #### [facility] [address] PT Coag (PPP) [Time] 12.5 s Normal 9.0-12.9 [facility] Comment on above: Performed By: #### C MP, TSH3, PT, HS TROP, PTT, BNP, MG, CBC #### [facility] [address] RBC Auto (Bld) [#/Vol]Ordere d By: Ramesh Byrd on 04-12-2022 RBC (Bld) [#/Vol] 3.93 10*6/uL 3.90-5.60 [facility] Serum or plasma alanine vivas otransferase measurement without P-5'-P (enzymatic activiOrdered By: Ramesh Byrd on 04-12-2022 ALT No additional P-5'-P [Catalytic activity/Vol] 34 U/L 10-60 [facility] Serum or plasma albumin/glob ulin mass ratioOrdered By: Ramesh Byrd on 04-12-2022 Albumin/Globulin [Mass ratio] 0.5 {ratio} [facility] Serum or plasma alkaline dilan sphatase measurement (enzymatic activity/volume)Ordered By: Ramesh Byrd on 04-12-2022 ALP [Catalytic activity/Vol] 97 U/L 32-92 [facility] Serum or plasma anion gap de terminationOrdered By: Ramesh Byrd on 04-12-2022 Anion gap [Moles/Vol] 17.1 mmol/L 6.0-15.0 [facility] Serum or plasma aspartate am inotransferase measurement (enzymatic activity/volume)Ordered By: Ramesh Byrd on 04-12-2022 AST [Catalytic activity/Vol] 136 U/L 10-42 [facility] Serum or plasma calcium osbaldo urement (mass/volume)Ordered By: Ramesh Byrd on 04-12-2022 Calcium [Mass/Vol] 8.6 mg/dL 8.2-10.2 [facility] Serum or plasma chloride judith surement (moles/volume)Ordered By: Ramesh Byrd on 04-12-2022 Chloride [Moles/Vol] 97 mmol/L 95-114 [facility] Serum or plasma glucose osbaldo urement (mass/volume)Ordered By: Ramesh Byrd on 04-12-2022 Glucose [Mass/Vol] 164 mg/dL 70-100 [facility] Comment on above: ADA recommended refe rence range Random Glucose Reference Range is dependent on time and content of last meal. Glucose of more than 200 mg/dL in a nonstressed, ambulatory subject supports the diagnosis of Diabetes Mellitus. Serum or plasma potassium me asurement (moles/volume)Ordered By: Ramesh Byrd on 04-12-2022 Potassium [Moles/Vol] 3.5 mmol/L 3.5-5.1 [facility] Serum or plasma sodium measu rement (moles/volume)Ordered By: Ramesh Byrd on 04-12-2022 Sodium [Moles/Vol] 136 mmol/L 136-146 [facility] Serum or plasma total biliru bin measurement (mass/volume)Ordered By: Ramesh Byrd on 04-12-2022 Bilirubin [Mass/Vol] 1.3 mg/dL 0.3-1.2 [facility] Comment on above: Samples from patient s who have taken Naproxen have shown spurious elevation in Total Bilirubin levels. A metabolite of Naproxen, O-desmethylnaproxen, has been shown to interfere with the Jorge Alberto method for measuring Total Bilirubin. Serum or plasma total carbon dioxide measurement (moles/volume)Ordered By: Ramesh Byrd on 04-12-2022 CO2 [Moles/Vol] 25.4 mmol/L 22.0-30.0 [facility] Serum or plasma urea nitroge n measurement (mass/volume)Ordered By: Ramesh Byrd on 04-12-2022 Urea nitrogen [Mass/Vol] 13 mg/dL 9- [facility] Specific gravity Auto test s trip (U) [Rel density]Ordered By: Ramesh Byrd on 04-12-2022 Specific gravity (U) [Rel density] 1.020 1.001-1.030 [facility] Squamous epithelial cells de tection in urine sediment by light microscopyOrdered By: Ramesh Byrd on 04-12-2022 Epithelial cells.squamous LM Ql (Urine sed) 0-1 [HPF] 0-2 [facility] TSH DL <= 0.005 mIU/L QnOrde red By: Ramesh Byrd on 04-12-2022 TSH Qn 13.14 m[IU]/L 0.45-5.33 [facility] Thyroid Stimulating Hormoneo n 04-12-2022 TSH Qn 13.14 m[IU]/L High 0.45-5.33 [facility] Comment on above: Result Comment: PERF ORMED BY: [place] [address] PATHOLOGIST [employer] CHARLENE HERNANDEZ M.D. Performed By: #### G LULS #### Point of Care testing , Troponin I High Sensitivityo n 04-12-2022 Troponin I High Sensitivity 18 pg/mL Normal 0-20 [facility] Comment on above: Result Comment: PERF ORMED BY: [place] [address] PATHOLOGIST [employer]MA[employer] CHARLENE HERNANDEZ M.D. Performed By: #### C MP, TSH3, PT, HS TROP, PTT, BNP, MG, CBC #### [address] Troponin I.cardiac [Mass/vol ume] in Serum or Plasma by High sensitivity methodOrdered By: Ramesh Byrd on 04-12-2022 Troponin I.cardiac High sensitivity method [Mass/Vol] 18 pg/mL 0-20 [facility] Urine bacteria detection by automated methodOrdered By: Ramesh Byrd on 04-12-2022 Bacteria Auto Ql (U) None seen None Seen [facility] Urine clarity by refractomet ry automatedOrdered By: Ramesh Byrd on 04-12-2022 Clarity Refractometry automated (U) Clear Clear [facility] Urine glucose measurement by automated test strip (mass/volume)Ordered By: Ramesh Byrd on 04-12-2022 Glucose Auto test strip (U) [Mass/Vol] Normal mg/dL Normal [facility] Urine hemoglobin detection b y automated test stripOrdered By: Ramesh Byrd on 04-12-2022 Hemoglobin Auto test strip Ql (U) 2+ Negative [facility] Urine leukocyte esterase det ection by automated test stripOrdered By: Ramesh Byrd on 04-12-2022 Leukocyte esterase Auto test strip Ql (U) Negative Negative [facility] Urobilinogen Auto test strip (U) [Mass/Vol]Ordered By: Ramesh Byrd on 04-12-2022 Urobilinogen (U) [Mass/Vol] Normal mg/dL Normal [facility] XR chest 2V*on 04-12-2022 XR chest 2V* [facility] [address] XRay Report Signed Patient: Evelin Patterson MR#: [id number] 005 : 1955 Acct:[id number] Age/Sex: 66 / M ADM Date: 04/12/22 Loc: ER Room: [facility] Attending Dr: Copies to: Ramesh Byrd [...] Jessica Cazares M.D.04/12/2022 11:53 AM Dictation Location: [place] [address] Transcribed By: [facility] 04/12/22 1153 Dictated By: Jessica Cazares MD 04/12/22 1151 Signed By: 04/12/22 1153 Normal [facility] pH Auto test strip (U)Ordere d By: Ramesh Byrd on 04-12-2022 pH (U) 6.5 [pH] 5.0-9.0 [facility] Albumin [Mass/volume] in Ser um or PlasmaOrdered By: Lupe Hernandez on 04-09-2022 Albumin [Mass/Vol] 1.9 g/dL 3.2-5.5 [facility] Basophils Auto (Bld) [#/Vol] Ordered By: Lupe Hernandez on 04-09-2022 Basophils (Bld) [#/Vol] 0.1 10*3/uL 0.0-0.2 [facility] Basophils/100 WBC Auto (Bld) Ordered By: Lupe Hernandez on 04-09-2022 Basophils/100 WBC (Bld) 1.3 % . [facility] [facility] Blood hemoglobin measurement (mass/volume)Ordered By: Lupe Hernandez on 04-09-2022 Hemoglobin (Bld) [Mass/Vol] 11.2 g/dL 13.0-17.0 [facility] Blood leukocytes automated c ount (number/volume)Ordered By: Lupe Hernandez on 04-09-2022 WBC (Bld) [#/Vol] 5.4 10*3/uL 4.5-11.0 [facility] Creatinine and Glomerular fi ltration rate.predicted panel (S/P/Bld)Ordered By: Lupe Hernandez on 04-09-2022 Creatinine [Mass/Vol] 0.88 mg/dL 0.64-1.27 [facility] Eosinophils Auto (Bld) [#/Vo l]Ordered By: Lupe Hernandez on 04-09-2022 Eosinophils (Bld) [#/Vol] 0.3 10*3/uL 0.0-0.45 [facility] Eosinophils/100 WBC Auto (Bl d)Ordered By: Lupe Hernandez on 04-09-2022 Eosinophils/100 WBC (Bld) 5.6 % . [facility] Erythrocyte distribution wid th Auto (RBC) [Ratio]Ordered By: Lupe Hernandez on 04-09-2022 Erythrocyte distribution width (RBC) [Ratio] 16.5 % 12.0-14.8 [facility] Estimated glomerular filtrat ion rate (GFR) non- AmericanOrdered By: Lupe Hernandez on 04-09-2022 GFR/1.73 sq M.predicted among non-blacks MDRD (S/P/Bld) [Vol rate/Area] > 60 mL/Min [facility] Globulin Calc (S) [Mass/Vol] Ordered By: Lupe Hernandez on 04-09-2022 Globulin (S) [Mass/Vol] 4.2 g/dL [facility] Glucose Glucometer (BldC) [M ass/Vol]Ordered By: Lupe Hernandez on 04-09-2022 Glucose [Mass/Vol] 178 mg/dL [facility] Comment on above: Random Glucose Refer ence Range is dependent on time and content of last meal. Glucose of more than 200 mg/dL in a nonstressed, ambulatory subject supports the diagnosis of Diabetes Mellitus. Hematocrit Auto (Bld) [Volum e fraction]Ordered By: Lupe Hernandez on 04-09-2022 Hematocrit (Bld) [Volume fraction] 33.6 % 38.8-50.0 [facility] Laboratory - Hematology and Cell countsOrdered By: Lupe Hernandez on 04-09-2022 Nucleated RBC/100 WBC (Bld) [Ratio] 0.2 % 0-0.5 [facility] Lymphocytes Auto (Bld) [#/Vo l]Ordered By: Lupe Hernandez on 04-09-2022 Lymphocytes (Bld) [#/Vol] 1.0 10*3/uL 1.00-4.8 [facility] Lymphocytes/100 WBC Auto (Bl d)Ordered By: Lupe Hernandez on 04-09-2022 Lymphocytes/100 WBC (Bld) 18.3 % . [facility] MCH Auto (RBC) [Entitic mass ]Ordered By: Lupe Hernandez on 04-09-2022 MCH (RBC) [Entitic mass] 31.1 pg 27.5-35.2 [facility] MCHC Auto (RBC) [Mass/Vol]Or dered By: Lupe Hernandez on 04-09-2022 MCHC (RBC) [Mass/Vol] 33.5 g/dL 32.5-35.6 [facility] MCV Auto (RBC) [Entitic vol] Ordered By: Lupe Hernandez on 04-09-2022 MCV (RBC) [Entitic vol] 93.0 fL 83.5-101 [facility] Monocytes Auto (Bld) [#/Vol] Ordered By: Lupe Hernandez on 04-09-2022 Monocytes (Bld) [#/Vol] 0.6 10*3/uL 0.0-0.8 [facility] Monocytes/100 WBC Auto (Bld) Ordered By: Lupe Hernandez on 04-09-2022 Monocytes/100 WBC (Bld) 11.0 % . [facility] Neutrophils Auto (Bld) [#/Vo l]Ordered By: Lupe Hernandez on 04-09-2022 Neutrophils (Bld) [#/Vol] 3.4 10*3/uL 1.8-7.7 [facility] Neutrophils/100 WBC Auto (Bl d)Ordered By: Lupe Hernandez on 04-09-2022 Neutrophils/100 WBC (Bld) 63.8 % . [facility] No Panel InformationOrdered By: Lupe Hernandez on 04-09-2022 Bedside Glucose Comment Glu2: cleaned meter [facility] Estimated GFR () > 60 mL/Min [facility] Comment on above: GFR estimated refere nce range: According to KDOQI guidelines, <60 ml/min/1.73m2 is sufficient to diagnose a patient with chronic kidney disease. Pharmacy Creatinine Clearance (Chem 130.27 [facility] Platelet mean volume Auto (B ld) [Entitic vol]Ordered By: Lupe Hernandez on 04-09-2022 Platelet mean volume (Bld) [Entitic vol] 7.6 fL 6.6-10.1 [facility] Platelets Auto (Bld) [#/Vol] Ordered By: Lupe Hernandez on 04-09-2022 Platelets (Bld) [#/Vol] 214 10*3/uL 150-450 [facility] Protein [Mass/volume] in Ser um or PlasmaOrdered By: Lupe Hernandez on 04-09-2022 Protein [Mass/Vol] 6.1 g/dL 6.1-7.9 [facility] RBC Auto (Bld) [#/Vol]Ordere d By: Lupe Hernandez on 04-09-2022 RBC (Bld) [#/Vol] 3.61 10*6/uL 3.90-5.60 [facility] Serum or plasma alanine vivas otransferase measurement without P-5'-P (enzymatic activiOrdered By: Lupe Hernandez on 04-09-2022 ALT No additional P-5'-P [Catalytic activity/Vol] 21 U/L 10-60 [facility] Serum or plasma albumin/glob ulin mass ratioOrdered By: Lupe Hernandez on 04-09-2022 Albumin/Globulin [Mass ratio] 0.5 {ratio} [facility] Serum or plasma alkaline dilan sphatase measurement (enzymatic activity/volume)Ordered By: Lupe Hernandez on 04-09-2022 ALP [Catalytic activity/Vol] 89 U/L 32-92 [facility] Serum or plasma anion gap de terminationOrdered By: Lupe Hernandez on 04-09-2022 Anion gap [Moles/Vol] 8.4 mmol/L 6.0-15.0 [facility] Serum or plasma aspartate am inotransferase measurement (enzymatic activity/volume)Ordered By: Lupe Hernandez on 04-09-2022 AST [Catalytic activity/Vol] 27 U/L 10-42 [facility] Serum or plasma calcium osbaldo urement (mass/volume)Ordered By: Lupe Hernandez on 04-09-2022 Calcium [Mass/Vol] 8.2 mg/dL 8.2-10.2 [facility] Serum or plasma chloride judith surement (moles/volume)Ordered By: Lupe Hernandez on 04-09-2022 Chloride [Moles/Vol] 98 mmol/L 95-114 [facility] Serum or plasma glucose osbaldo urement (mass/volume)Ordered By: Lupe Hernandez on 04-09-2022 Glucose [Mass/Vol] 150 mg/dL 70-100 [facility] Comment on above: ADA recommended refe rence range Random Glucose Reference Range is dependent on time and content of last meal. Glucose of more than 200 mg/dL in a nonstressed, ambulatory subject supports the diagnosis of Diabetes Mellitus. Serum or plasma potassium me asurement (moles/volume)Ordered By: Lupe Hernandez on 04-09-2022 Potassium [Moles/Vol] 3.4 mmol/L 3.5-5.1 [facility] Serum or plasma sodium measu rement (moles/volume)Ordered By: Lupe Hernandez on 04-09-2022 Sodium [Moles/Vol] 134 mmol/L 136-146 [facility] Serum or plasma total biliru bin measurement (mass/volume)Ordered By: Lupe Hernandez on 04-09-2022 Bilirubin [Mass/Vol] 0.7 mg/dL 0.3-1.2 [facility] Serum or plasma total carbon dioxide measurement (moles/volume)Ordered By: Lupe Hernandez on 04-09-2022 CO2 [Moles/Vol] 31.0 mmol/L 22.0-30.0 [facility] Serum or plasma urea nitroge n measurement (mass/volume)Ordered By: Lupe Hernandez on 04-09-2022 Urea nitrogen [Mass/Vol] 9 mg/dL 9-23 [facility] Bacterial blood cultureOrder ed By: Luke Moran on 04-07-2022 Bacteria identified Cx Nom (Bld) NO GROWTH 5 DAYS [facility] Laboratory - Chemistry and C hemistry - challengeOrdered By: Luke Moran on 04-04-2022 CO2 [Moles/Vol] 29.4 mmol/L 23.0-27.0 [facility] HCO3 (Bld) [Moles/Vol] 28.1 mmol/L 23.0-29.0 [facility] No Panel InformationOrdered By: Luke Moran on 04-04-2022 Arterial Blood Base Excess 3.4 mmol/L -3.0-3.0 [facility] Arterial Blood Oxygen Content 6.4 mmol/L 6.6-9.7 [facility] Arterial Blood Oxygen Saturation 92.1 % 95.0-100.0 [facility] Arterial Blood Partial Pressure CO2 43.2 mm[Hg] 35.0-45.0 [facility] Arterial Blood Partial Pressure O2 61.4 mm[Hg] 80.0-100.0 [facility] Arterial Blood pH 7.43 7.35-7.45 [facility] Blood Gas Critical Value See comment [facility] Comment on above: Critical Value kaufman d on: 04/04/2022 at 09:33 Blood Gas Liter Flow 2 L/min [facility] Blood Gas Sample Site Left radial [facility] FiO2 28 % [facility] Oxygen Delivery Device Nasal cannula [facility] Automated erythrocytes count in urine sediment (number/area)Ordered By: Jair Gabriel on 04-03-2022 RBC Auto (Urine sed) [#/Area] 3-4 [HPF] 0-4 [facility] Automated leukocytes count i n urine sediment (number/area)Ordered By: Jair Gabriel on 04-03-2022 WBC Auto (Urine sed) [#/Area] None seen [HPF] 0-4 [facility] Bilirubin Test strip Ql (U)O rdered By: Jair Gabriel on 04-03-2022 Bilirubin Ql (U) Negative Negative [facility] Color Auto (U)Ordered By: Tam Gabriel on 04-03-2022 Color (U) Yellow Yellow [facility] Hepatitis B virus surface Ag [Presence] in Serum or Plasma by ImmunoassayOrdered By: Luke Moran on 04-03-2022 HBV surface Ag IA Ql Negative Negative [facility] Comment on above: Performed at: [address] [id number] [employer] Operator: Genaro Becerril PhD, Phone: [phone] IgA [Mass/volume] in Serum o r PlasmaOrdered By: Luke Moran on 04-03-2022 IgA [Mass/Vol] 697 mg/dL 61-437 [facility] IgG [Mass/volume] in Serum o r PlasmaOrdered By: Luke Moran on 04-03-2022 IgG [Mass/Vol] 1107 mg/dL 603-1613 [facility] IgM [Mass/volume] in Serum o r PlasmaOrdered By: Luke Moran on 04-03-2022 IgM [Mass/Vol] 91 mg/dL 20-172 [facility] Comment on above: Performed at: [email or web address] [address] [id number] [employer] Operator: Genaro Becerril PhD, Phone: [phone] Immunofixation for UrineOrde red By: Luke Moran on 04-03-2022 Interpretation Immunofixation (U) [Interp] See comment . [facility] Comment on above: No monoclonality det ected. Performed at: [facility] [address] [id number] [employer] Operator: Genaro Becerril PhD, Phone: [phone] Immunoglobulin light chains. kappa.free [Mass/volume] in SerumOrdered By: Luke Moran on 04-03-2022 Immunoglobulin light chains.kappa.free (S) [Mass/Vol] 93.9 mg/L 3.3-19.4 [facility] Immunoglobulin light chains. kappa.free/Immunoglobulin light chains.lambda.free [MassOrdered By: Luke Moran on 04-03-2022 Immunoglobulin light chains.kappa.free/Immuno globulin light chains.lambda.free (S) [Mass ratio] 1.52 0.26-1.65 [facility] Comment on above: Performed at: [email or web address] [address] [id number] [employer] Operator: Genaro Becerril PhD, Phone: [phone] Immunoglobulin light chains. lambda.free [Mass/volume] in Serum or PlasmaOrdered By: Luke Moran on 04-03-2022 Immunoglobulin light chains.lambda.free [Mass/Vol] 61.6 mg/L 5.7-26.3 [facility] Ketones Auto test strip (U) [Mass/Vol]Ordered By: Jair Gabriel on 04-03-2022 Ketones (U) [Mass/Vol] Negative Negative [facility] Laboratory - UrinalysisOrder ed By: Jair Gabriel on 04-03-2022 Hyaline casts LM Ql (Urine sed) 0-8 [LPF] 0-8 [facility] Nitrite Test strip Ql (U)Ord ered By: Jair Gabriel on 04-03-2022 Nitrite Ql (U) Negative Negative [facility] No Panel InformationOrdered By: Luke Moran on 04-03-2022 Hepatitis C Interpretation See comment . [facility] Comment on above: Negative Not infected with HCV, unless recent infection is suspected or other evidence exists to indicate HCV infection. Hepatitis C RNA Quantitative N/A [facility] Serum Immunofixation See comment . [facility] Comment on above: Immunofixation shows IgG monoclonal protein with lambda light chain specificity. Protein Auto test strip (U) [Mass/Vol]Ordered By: Jair Gabriel on 04-03-2022 Protein (U) [Mass/Vol] Negative Negative [facility] Random cortisol measurementO rdered By: Luke Moran on 04-03-2022 Cortisol [Mass/Vol] 5.8 ug/dL [facility] Comment on above: Reference range: AM 6 - 24 ug/dl PM <10 ug/dl Serum hepatitis B virus surf calin antibody detectionOrdered By: Luke Moran on 04-03-2022 HBV surface Ab Ql (S) Reactive . [facility] Comment on above: Non Reactive: Incons istent [...] IA [Rel units/Vol] 0.1 s/co ratio 0.0-0.9 [facility] Comment on above: --- 04/04/2236 -- - Hep C Ab previously reported as: <0.1 s/co ratio Specific gravity Auto test s trip (U) [Rel density]Ordered By: Jair Gabriel on 04-03-2022 Specific gravity (U) [Rel density] 1.035 1.001-1.030 [facility] Squamous epithelial cells de tection in urine sediment by light microscopyOrdered By: Jair Gabriel on 04-03-2022 Epithelial cells.squamous LM Ql (Urine sed) None seen [HPF] 0-2 [facility] TSH DL <= 0.005 mIU/L QnOrde red By: Luke Moran on 04-03-2022 TSH Qn 22.19 m[IU]/L 0.45-5.33 [facility] Urine bacteria detection by automated methodOrdered By: Jair Gabriel on 04-03-2022 Bacteria Auto Ql (U) None seen None Seen [facility] Urine clarity by refractomet ry automatedOrdered By: Jair Gabriel on 04-03-2022 Clarity Refractometry automated (U) Clear Clear [facility] Urine glucose measurement by automated test strip (mass/volume)Ordered By: Jair Gabriel on 04-03-2022 Glucose Auto test strip (U) [Mass/Vol] 100 mg/dL Normal [facility] Urine hemoglobin detection b y automated test stripOrdered By: Jair Gabriel on 04-03-2022 Hemoglobin Auto test strip Ql (U) 3+ Negative [facility] Urine leukocyte esterase det ection by automated test stripOrdered By: Jair Gabriel on 04-03-2022 Leukocyte esterase Auto test strip Ql (U) Negative Negative [facility] Urobilinogen Auto test strip (U) [Mass/Vol]Ordered By: Jair Gabriel on 04-03-2022 Urobilinogen (U) [Mass/Vol] Normal mg/dL Normal [facility] pH Auto test strip (U)Ordere d By: Jair Gabriel on 04-03-2022 pH (U) 5.0 [pH] 5.0-9.0 [facility] Activated partial thrombopla stin time (aPTT) in platelet poor plasma by coagulation aOrdered By: Jair Gabriel on 04-02-2022 aPTT Coag (PPP) [Time] 24.8 s 25.1-36.5 [facility] COVID-19 Positive/NegativeOr dered By: Jair Gabriel on 04-02-2022 SARS-CoV-2 (COVID-19) N gene MANJIT+probe Ql (Resp) Negative Negative [facility] Comment on above: Testing for SARS-CoV -2 by RT-PCR This test was developed and its performance characteristics determined by [employer] and validated at the [facility]. This test has not been FDA cleared [...] (COVID-19) Ag IA.rapid Ql (Resp) Negative Negative [facility] Comment on above: This is a duplicate Cristal SARS Antigen (GONZALO) result to be used for statistical tracking purpose only. Laboratory - Chemistry and C hemistry - challengeOrdered By: Jair Gabriel on 04-02-2022 Natriuretic peptide B (Bld) [Mass/Vol] 55.0 pg/mL 5-100 [facility] Laboratory - CoagulationOrde red By: Jair Gabriel on 04-02-2022 PT Coag (PPP) [Time] 11.9 s 9.0-12.9 [facility] No Panel InformationOrdered By: Luke Moran on 04-02-2022 D-Dimer Quantitative (PE/DVT) 2825 ng/mL 0-243 [facility] Comment on above: The reference range for [...] Jair Gabriel on 04-02-2022 SARS Antigen (LFIA) [facility] Platelet poor plasma interna tional normalized ratio (INR) by coagulation assay (relatOrdered By: Jair Gabriel on 04-02-2022 INR Coag (PPP) [Relative time] 1.1 {INR} [facility] Comment on above: INR Therapeutic Rang e [...] High sensitivity method [Mass/Vol] 26 pg/mL 0-20 [facility] Albumin [Mass/volume] in Ser um or PlasmaOrdered By: Sarah Osuna on 03-16-2022 Albumin [Mass/Vol] 1.9 g/dL 3.2-5.5 [facility] Creatinine and Glomerular fi ltration rate.predicted panel (S/P/Bld)Ordered By: Sarah Osuna on 03-16-2022 Creatinine [Mass/Vol] 1.27 mg/dL 0.64-1.27 [facility] Estimated glomerular filtrat ion rate (GFR) non- AmericanOrdered By: Sarah Osuna on 03-16-2022 GFR/1.73 sq M.predicted among non-blacks MDRD (S/P/Bld) [Vol rate/Area] 57 mL/Min [facility] Glucose Glucometer (BldC) [M ass/Vol]Ordered By: Xin Phan on 03-16-2022 Glucose [Mass/Vol] 377 mg/dL [facility] Comment on above: Random Glucose Refer ence Range is dependent on time and content of last meal. Glucose of more than 200 mg/dL in a nonstressed, ambulatory subject supports the diagnosis of Diabetes Mellitus. No Panel InformationOrdered By: Sarah Osuna on 03-16-2022 Estimated GFR () > 60 mL/Min [facility] Comment on above: GFR estimated refere nce range: According to KDOQI guidelines, <60 ml/min/1.73m2 is sufficient to diagnose a patient with chronic kidney disease. Pharmacy Creatinine Clearance (Chem 90.76 [facility] Serum or plasma calcium osbaldo urement (mass/volume)Ordered By: Sarah Osuna on 03-16-2022 Calcium [Mass/Vol] 8.4 mg/dL 8.2-10.2 [facility] Serum or plasma chloride judith surement (moles/volume)Ordered By: Sarah Osuna on 03-16-2022 Chloride [Moles/Vol] 99 mmol/L 95-114 [facility] Serum or plasma glucose osbaldo urement (mass/volume)Ordered By: Sarah Osuna on 03-16-2022 Glucose [Mass/Vol] 265 mg/dL 70-100 [facility] Comment on above: Delta: 480 on -1 ADA recommended reference range Random Glucose Reference Range is dependent on time and content of last meal. Glucose of more than 200 mg/dL in a nonstressed, ambulatory subject supports the diagnosis of Diabetes Mellitus. Serum or plasma potassium me asurement (moles/volume)Ordered By: Xin Phan on 03-16-2022 Potassium [Moles/Vol] 4.0 mmol/L 3.5-5.1 [facility] Serum or plasma sodium measu rement (moles/volume)Ordered By: Sarah Osuna on 03-16-2022 Sodium [Moles/Vol] 132 mmol/L 136-146 [facility] Serum or plasma total carbon dioxide measurement (moles/volume)Ordered By: Sarah Osuna on 03-16-2022 CO2 [Moles/Vol] 25.4 mmol/L 22.0-30.0 [facility] Serum or plasma urea nitroge n measurement (mass/volume)Ordered By: Sarah Osuna on 03-16-2022 Urea nitrogen [Mass/Vol] 24 mg/dL 9-23 [facility] Serum phospholipid phosphoru s measurement (mass/volume)Ordered By: Xin Phan on 03-16-2022 Phospholipid phosphorus (S) [Mass/Vol] 2.0 mg/dL 2.5-4.6 [facility] No Panel InformationOrdered By: Xin Phan on 03-15-2022 Bedside Glucose Comment See comment [facility] Comment on above: Glu2: WILL NOTIFY DR /RN Bedside Glucose #2 Comment Cleaned meter [facility] Automated erythrocytes count in urine sediment (number/area)Ordered By: Sarah Osuna on 03-14-2022 RBC Auto (Urine sed) [#/Area] 0-1 [HPF] 0-4 [facility] Automated leukocytes count i n urine sediment (number/area)Ordered By: Sarah Osuna on 03-14-2022 WBC Auto (Urine sed) [#/Area] 0-1 [HPF] 0-4 [facility] Basophils Auto (Bld) [#/Vol] Ordered By: Leah Huang on 03-14-2022 Basophils (Bld) [#/Vol] 0.0 10*3/uL 0.0-0.2 [facility] Basophils/100 WBC Auto (Bld) Ordered By: Leah Huang on 03-14-2022 Basophils/100 WBC (Bld) 0.2 % . [facility] Bilirubin Auto test strip Ql (U)Ordered By: Sarah Osuna on 03-14-2022 Bilirubin Ql (U) Negative Negative [facility] Blood hemoglobin measurement (mass/volume)Ordered By: Leah Huang on 03-14-2022 Hemoglobin (Bld) [Mass/Vol] 11.6 g/dL 13.0-17.0 [facility] Blood leukocytes automated c ount (number/volume)Ordered By: Leah Huang on 03-14-2022 WBC (Bld) [#/Vol] 6.0 10*3/uL 4.5-11.0 [facility] Creatinine [Mass/volume] in UrineOrdered By: Sarah Osuna on 03-14-2022 Creatinine (U) [Mass/Vol] 76.9 mg/dL [facility] Comment on above: No reference range e stablished Eosinophils Auto (Bld) [#/Vo l]Ordered By: Leah Huang on 03-14-2022 Eosinophils (Bld) [#/Vol] 0.1 10*3/uL 0.0-0.45 [facility] Eosinophils/100 WBC Auto (Bl d)Ordered By: Leah Huang on 03-14-2022 Eosinophils/100 WBC (Bld) 1.4 % . [facility] Erythrocyte distribution wid th Auto (RBC) [Ratio]Ordered By: Leah Huang on 03-14-2022 Erythrocyte distribution width (RBC) [Ratio] 15.8 % 12.0-14.8 [facility] Globulin Calc (S) [Mass/Vol] Ordered By: Leah Huang on 03-14-2022 Globulin (S) [Mass/Vol] 3.8 g/dL [facility] Glucose mean value [Mass/vol ume] in Blood Estimated from glycated hemoglobinOrdered By: Leah Huang on 03-14-2022 Average glucose Estimated from glycated hemoglobin (Bld) [Mass/Vol] 329 mg/dL [facility] Hematocrit Auto (Bld) [Volum e fraction]Ordered By: Leah Huang on 03-14-2022 Hematocrit (Bld) [Volume fraction] 35.1 % 38.8-50.0 [facility] Hemoglobin A1c percentageOrd ered By: Leah Huang on 03-14-2022 HbA1c (Bld) [Mass fraction] 13.1 % 4.3-5.6 [facility] Comment on above: Increased risk for d iabetes: 5.7 - 6.4 diabetes: >6.4 glycemic control for adults with diabetes: <7.0 Ketones Auto test strip (U) [Mass/Vol]Ordered By: Sarah Osuna on 03-14-2022 Ketones (U) [Mass/Vol] Negative Negative [facility] Laboratory - Hematology and Cell countsOrdered By: Leah Huang on 03-14-2022 Nucleated RBC/100 WBC (Bld) [Ratio] 0.1 % 0-0.5 [facility] Laboratory - UrinalysisOrder ed By: Sarah Osuna on 03-14-2022 Hyaline casts LM Ql (Urine sed) 0-8 [LPF] 0-8 [facility] Lymphocytes Auto (Bld) [#/Vo l]Ordered By: Leah Huang on 03-14-2022 Lymphocytes (Bld) [#/Vol] 1.4 10*3/uL 1.00-4.8 [facility] Lymphocytes/100 WBC Auto (Bl d)Ordered By: Leah Huang on 03-14-2022 Lymphocytes/100 WBC (Bld) 22.7 % . [facility] MCH Auto (RBC) [Entitic mass ]Ordered By: Leah Huang on 03-14-2022 MCH (RBC) [Entitic mass] 29.9 pg 27.5-35.2 [facility] MCHC Auto (RBC) [Mass/Vol]Or dered By: Leah Huang on 03-14-2022 MCHC (RBC) [Mass/Vol] 33.0 g/dL 32.5-35.6 [facility] MCV Auto (RBC) [Entitic vol] Ordered By: Leah Huang on 03-14-2022 MCV (RBC) [Entitic vol] 90.4 fL 83.5-101 [facility] Monocytes Auto (Bld) [#/Vol] Ordered By: Leah Huang on 08-04-2022 Monocytes (Bld) [#/Vol] 0.5 10*3/uL 0.0-0.8 [facility] Monocytes/100 WBC Auto (Bld) Ordered By: Leah Huang on 03-14-2022 Monocytes/100 WBC (Bld) 9.0 % . [facility] Neutrophils Auto (Bld) [#/Vo l]Ordered By: Leah Huang on 03-14-2022 Neutrophils (Bld) [#/Vol] 4.0 10*3/uL 1.8-7.7 [facility] Neutrophils/100 WBC Auto (Bl d)Ordered By: Leah Huang on 03-14-2022 Neutrophils/100 WBC (Bld) 66.7 % . [facility] Platelet mean volume Auto (B ld) [Entitic vol]Ordered By: Leah Huang on 03-14-2022 Platelet mean volume (Bld) [Entitic vol] 8.9 fL 6.6-10.1 [facility] Platelets Auto (Bld) [#/Vol] Ordered By: Leah Huang on 03-14-2022 Platelets (Bld) [#/Vol] 143 10*3/uL 150-450 [facility] Protein Auto test strip (U) [Mass/Vol]Ordered By: Sarah Osuna on 03-14-2022 Protein (U) [Mass/Vol] Negative Negative [facility] Protein [Mass/volume] in Ser um or PlasmaOrdered By: Leah Huang on 03-14-2022 Protein [Mass/Vol] 5.8 g/dL 6.1-7.9 [facility] Protein [Mass/volume] in Uri neOrdered By: Sarah Osuna on 03-14-2022 Protein (U) [Mass/Vol] 13 mg/dL 0-9 [facility] RBC Auto (Bld) [#/Vol]Ordere d By: Leah Huang on 03-14-2022 RBC (Bld) [#/Vol] 3.88 10*6/uL 3.90-5.60 [facility] Serum or plasma alanine vivas otransferase measurement without P-5'-P (enzymatic activiOrdered By: Leah Huang on 03-14-2022 ALT No additional P-5'-P [Catalytic activity/Vol] 35 U/L 10-60 [facility] Serum or plasma albumin/glob ulin mass ratioOrdered By: Leah Huang on 03-14-2022 Albumin/Globulin [Mass ratio] 0.5 {ratio} [facility] Serum or plasma alkaline dilan sphatase measurement (enzymatic activity/volume)Ordered By: Leah Huang on 03-14-2022 ALP [Catalytic activity/Vol] 120 U/L 32-92 [facility] Serum or plasma aspartate am inotransferase measurement (enzymatic activity/volume)Ordered By: Leah Huang on 03-14-2022 AST [Catalytic activity/Vol] 36 U/L 10-42 [facility] Serum or plasma total biliru bin measurement (mass/volume)Ordered By: Leah Huang on 03-14-2022 Bilirubin [Mass/Vol] 1.0 mg/dL 0.3-1.2 [facility] Squamous epithelial cells de tection in urine sediment by light microscopyOrdered By: Sarah Osuna on 03-14-2022 Epithelial cells.squamous LM Ql (Urine sed) None seen [HPF] 0-2 [facility] Urea nitrogen [Mass/volume] in UrineOrdered By: Leah Huang on 03-14-2022 Urea nitrogen (U) [Mass/Vol] 454 mg/dL Not Estab. [facility] Comment on above: Performed at: [address] [id number] [employer] Operator: Genaro Becerril PhD, Phone: [phone] Urine appearanceOrdered By: Sarah Osuna on 03-14-2022 Appearance (U) Clear Clear [facility] Urine bacteria detection by automated methodOrdered By: Sarah Osuna on 03-14-2022 Bacteria Auto Ql (U) None seen None Seen [facility] Urine colorOrdered By: Sarah Osuna on 03-14-2022 Color (U) Yellow Yellow [facility] Urine glucose measurement by automated test strip (mass/volume)Ordered By: Sarah Osuna on 03-14-2022 Glucose Auto test strip (U) [Mass/Vol] >=1000 mg/dL Normal [facility] Urine hemoglobin detection b y automated test stripOrdered By: Sarah Osuna on 03-14-2022 Hemoglobin Auto test strip Ql (U) 2+ Negative [facility] Urine leukocyte esterase det ection by automated test stripOrdered By: Sarah Osuna on 03-14-2022 Leukocyte esterase Auto test strip Ql (U) Negative Negative [facility] Urine nitrite detection by a utomated test stripOrdered By: Sarah Osuna on 03-14-2022 Nitrite Auto test strip Ql (U) Negative Negative [facility] Urine protein/creatinine rat ioOrdered By: Sarah Osuna on 03-14-2022 Protein/Creatinine (U) [Ratio] 169 mg/g{Cre} 0-200 [facility] Urine sodium measurement (mo les/volume)Ordered By: Leah Huang on 03-14-2022 Sodium (U) [Moles/Vol] 20 mmol/L [facility] Comment on above: No reference range e stablished Urobilinogen Auto test strip (U) [Mass/Vol]Ordered By: Sarah Osuna on 03-14-2022 Urobilinogen (U) [Mass/Vol] Normal mg/dL Normal [facility] Yeast detection in urine sed iment by light microscopyOrdered By: Sarah Osuna on 03-14-2022 Yeast LM Ql (Urine sed) Budding yeast [HPF] Non e Seen [facility] Comment on above: 1+ BUDDING YEAST pH Auto test strip (U)Ordere d By: Sarah Osuna on 03-14-2022 pH (U) 1.020 [pH] 1.001-1.030 [facility] pH (U) 5.5 [pH] 5.0-9.0 [facility] POINT OF CARE GLUCOSEon 01-10 Glucose [Mass/Vol] 161 mg/dL Critically high 74-106 [facility] Comment on above: Performed By: #### T , BMP #### [facility] [address] [address] [address] Ladan Diehl POINT OF CARE GLUCOSEon 01-09 Glucose [Mass/Vol] 358 mg/dL Critically high 74-106 [facility] Comment on above: Performed By: #### A 1C #### [facility] [address] [place] [address] Dr. Ladan Diehl Glucose [Mass/Vol] 279 mg/dL Critically high -106 [facility] Comment on above: Performed By: #### A 1C #### [facility] [address] [place] [address] Dr. Ladan Diehl Glucose [Mass/Vol] 247 mg/dL Critically high -106 [facility] Comment on above: Performed By: #### T SH, BMP #### [facility] [address] [place] [address] Dr. Ladan Diehl Glucose [Mass/Vol] 357 mg/dL Critically high -106 [facility] Comment on above: Performed By: #### A 1C #### [facility] [address] [place] [address] Dr. Ladan Diehl PROF CHEM 8 (BAS METB)on Anion gap [Moles/Vol] 11.1 mmol/L Normal [facility] Comment on above: Performed By: #### T STEFF, BMP #### [facility] [address] [place] [address] Dr. Ladan Diehl Calcium [Mass/Vol] 8.8 mg/dL Normal 8.5-10.1 [facility] Comment on above: Performed By: #### T STEFF, BMP #### [facility] [address] [place] [address] Dr. Ladan Diehl Chloride [Moles/Vol] 99 mmol/L Normal 98-107 [facility] Comment on above: Performed By: #### T STEFF, BMP #### [facility] [address] [place] [address] Dr. Ladan Diehl CO2 [Moles/Vol] 27.2 mmol/L Normal 21.0-32.0 [facility] Comment on above: Performed By: #### T STEFF, BMP #### [facility] [address] [place] [address] Dr. Ladan Diehl Creatinine [Mass/Vol] 1.59 mg/dL Critically high 0.70-1.30 [facility] Comment on above: Performed By: #### T SH, BMP #### [facility] [address] [address] [address] Ladan Diehl EGFR-AF OMANI 53 mL/min/1.73m2 Critically low >=60 [facility] Comment on above: Performed By: #### T SH, BMP #### [facility] [address] [address] [address] Ladan Diehl EGFR-NON AF OMANI 44 mL/min/1.73m2 Critically low >=60 [facility] Comment on above: Performed By: #### T SH, BMP #### [facility] [address] [place] [address] Dr. Ladan Diehl Glucose [Mass/Vol] 284 mg/dL Critically high 74-106 [facility] Comment on above: Performed By: #### T SH, BMP #### [facility] [address] [place] [address] Dr. Ladan Diehl Potassium [Moles/Vol] 4.2 mmol/L Normal 3.5-5.1 [facility] Comment on above: Performed By: #### T SH, BMP #### [facility] [address] [place] [address] Dr. Ladan Diehl Sodium [Moles/Vol] 133 mmol/L Critically low 136-145 Th [facility] Comment on above: Performed By: #### T SH, BMP #### [facility] [address] [place] [address] Dr. Ladan Diehl Urea nitrogen [Mass/Vol] 22.0 mg/dL Critically high 7.0-[address] [facility] Comment on above: Performed By: #### T SH, BMP #### [facility] [address] [place] [address] Dr. Ladan Diehl Urea nitrogen/Creatinine [Mass ratio] 13.8 mg/mg Normal [facility] Comment on above: Performed By: #### T SH, BMP #### [facility] [address] [place] [address] Dr. Ladan Diehl TROPONIN, HIGH SENSITIVITYon 01-24-2022 HSTROP 13.7 pg/mL Normal 4.0-76.1 [facility] Comment on above: Result Comment: CUT- OFF POINTS HAVE BEEN ESTABLISHED BASED ON THE FOURTH UNIVERSAL DEFINITIONS OF MYOCARDIAL INFARCTION. THE UPPER REFERENCE LIMIT (URL) OF TROPONIN, DEFINED THE 99TH PERCENTILE OF cTnI DISTRIBUTION IN A REFERENCE POPULATION, HAS BEEN CONFIRMED THE DECISION THRESHOLD FOR [place] DIAGNOSIS. Performed By: #### H STROPN #### [facility] [address] [place] [address] Dr. Ladan Diehl TSHon 01-24-2022 TSH 0.381 uIU/mL Normal 0.358-3.740 [facility] Comment on above: Performed By: #### T STEFF, BMP #### [facility] [address] [place] [address] Dr. Ladan Diehl US LIT DOP LEG [...] CAROL YIP Date: 2022-01-24 09:51 Normal [facility] BNPon 01-23-2022 Natriuretic peptide B (Bld) [Mass/Vol] 262.0 pg/mL Normal <=900.0 [facility] Comment on above: Performed By: #### A 1C #### [facility] [address] [place] [address] Dr. Ladan Diehl CBC AUTO DIFFon 01-23-2022 BASO # 0.1 103/ul Normal 0.0-0.1 [facility] Comment on above: Performed By: #### T STEFF, BMP #### [facility] [address] [place] [address] Dr. Ladan Diehl Basophils/100 WBC (Bld) 0.8 % Normal 0.2-2.0 [facility] Comment on above: Performed By: #### T SH, BMP #### [facility] [address] [place] [address] Dr. Ladan Diehl EO # 0.3 103/ul Normal 0.0-0.7 [facility] Comment on above: Performed By: #### T SH, BMP #### [facility] [address] [place] [address] Dr. Ladan Diehl Eosinophils/100 WBC (Bld) 4.4 % Normal 0.9-7.0 [facility] Comment on above: Performed By: #### T SH, BMP #### [facility] [address] [place] [address] Dr. Ladan Diehl Erythrocyte distribution width (RBC) [Ratio] 14.0 % Normal 11.0-15.0 [facility] Comment on above: Performed By: #### T SH, BMP #### [facility] [address] [place] [address] Dr. Ladan Diehl Hematocrit (Bld) [Volume fraction] 38.3 % Critically low 42.0-54.0 [facility] Comment on above: Performed By: #### T SH, BMP #### [facility] [address] [place] [address] Dr. Ladan Diehl Hemoglobin (Bld) [Mass/Vol] 12.0 g/dL Critically low 14.0-18.0 [facility] Comment on above: Performed By: #### T SH, BMP #### [facility] [address] [place] [address] Dr. Ladan Diehl IG # 0.03 10e3/ul Normal 0.00-0.03 [facility] Comment on above: Performed By: #### T SH, BMP #### [facility] [address] [place] [address] Dr. Ladan Diehl IG % 0.5 % Normal 0.0-0.5 [facility] Comment on above: Performed By: #### T SH, BMP #### [facility] [address] [place] [address] Dr. Ladan Diehl LYMPH # 1.2 103/ul Normal 1.2-3.8 [facility] Comment on above: Performed By: #### T SH, BMP #### [facility] [address] [place] [address] Dr. Ladan Diehl Lymphocytes/100 WBC (Bld) 20.2 % Critically low 20.5-60.0 [facility] Comment on above: Performed By: #### T SH, BMP #### [facility] [address] [place] [address] Dr. Ladan Diehl MANUAL DIFF REQ NO Normal [facility] Comment on above: Performed By: #### T SH, BMP #### [facility] [address] [place] [address] Dr. Ladan Diehl MCH (RBC) [Entitic mass] 29.6 pg Normal 25.9-34.0 [facility] Comment on above: Performed By: #### T SH, BMP #### [facility] [address] [place] [address] Dr. Ladan Diehl MCHC (RBC) [Mass/Vol] 31.3 g/dL Normal 29.9-35.2 [facility] Comment on above: Performed By: #### T SH, BMP #### [facility] [address] [place] [address] Dr. Ladan Diehl MCV (RBC) [Entitic vol] 94.6 fL Critically high 80.0-[address] [facility] Comment on above: Performed By: #### T SH, BMP #### [facility] [address] [place] [address] Dr. Ladan Diehl MONO # 0.7 103/ul Normal 0.3-0.8 [facility] Comment on above: Performed By: #### T SH, BMP #### [facility] [address] [place] [address] Dr. Ladan Diehl Monocytes/100 WBC (Bld) 10.7 % Normal 1.7-12.0 [facility] Comment on above: Performed By: #### T SH, BMP #### [facility] [address] [address] [address] Ladan Diehl NEUT # 3.9 103/ul Normal 1.4-6.5 [facility] Comment on above: Performed By: #### T SH, BMP #### [facility] [address] [address] [address] Ladan Diehl Neutrophils/100 WBC (Bld) 63.4 % Normal 43.0-75.0 [facility] Comment on above: Performed By: #### T SH, BMP #### [facility] [address] [address] [address] Ladan Diehl Platelet mean volume (Bld) [Entitic vol] 10.0 fL Normal 9.5-13.5 [facility] Comment on above: Performed By: #### T SH, BMP #### [facility] [address] [place] [address] Dr. Ladan Diehl PLT 171 103/ul Normal 150-450 [facility] Comment on above: Performed By: #### T SH, BMP #### [facility] [address] [place] [address] Dr. Ladan Diehl RBC 4.05 106/ul Critically low 4.70-6.10 [facility] Comment on above: Performed By: #### T SH, BMP #### [facility] [address] [place] [address] Dr. Ladan Diehl WBC 6.1 103/ul Normal 4.0-11.0 [facility] Comment on above: Performed By: #### T SH, BMP #### [facility] [address] [place] [address] Dr. Ladan Diehl CTA CHEST WO W [...] XIN BUI Date: 2022-01-23 19:35 Normal [facility] Covid-19 PCR (CVDTBH)on 01-09 SARS-CoV-2 (COVID-19) RNA MANJIT+probe Ql (Unsp spec) Not detected Normal NOT DETECTED [facility] Comment on above: Result Comment: When diagnostic [...] for this test is supported by the [place] of Health and Human Service's declaration that [...] used). Performed By: #### A 1C #### [facility] [address] [place] [address] Dr. Ladan Diehl LACTATE/LACTIC ACIDon 2021 Lactate [Moles/Vol] 1.6 mmol/L Normal 0.4-1.9 [facility] Comment on above: Performed By: #### L ACT #### [facility] [address] [place] [address] Dr. Ladan Diehl PROF 14(COMP METB)on 022 Albumin [Mass/Vol] 2.7 g/dL Critically low 3.4-5.0 [facility] Comment on above: Performed By: #### A 1C #### [facility] [address] [place] [address] Dr. Ladan Diehl Albumin/Globulin [Mass ratio] 0.5 {ratio} Normal [facility] Comment on above: Performed By: #### A 1C #### [facility] [address] [place] [address] Dr. Ladan Diehl ALP [Catalytic activity/Vol] 120 U/L Critically high 46-116 [facility] Comment on above: Performed By: #### A 1C #### [facility] [address] [place] [address] Dr. Ladan Diehl ALT [Catalytic activity/Vol] 23 U/L Normal 16-63 [facility] Comment on above: Performed By: #### A 1C #### [facility] [address] [place] [address] Dr. Ladan Diehl Anion gap [Moles/Vol] 10.3 mmol/L Normal [facility] Comment on above: Performed By: #### A 1C #### [facility] [address] [place] [address] Dr. Ladan Diehl AST [Catalytic activity/Vol] 29 U/L Normal 15-37 [facility] Comment on above: Performed By: #### A 1C #### [facility] [address] [place] [address] Dr. Ladan Diehl Bilirubin [Mass/Vol] 1.0 mg/dL Normal 0.2-1.0 [facility] Comment on above: Performed By: #### A 1C #### [facility] [address] [place] [address] Dr. Ladan Diehl Calcium [Mass/Vol] 8.8 mg/dL Normal 8.5-10.1 [facility] Comment on above: Performed By: #### A 1C #### [facility] [address] [place] [address] Dr. Ladan Diehl Chloride [Moles/Vol] 101 mmol/L Normal 98-107 [facility] Comment on above: Performed By: #### A 1C #### [facility] [address] [place] [address] Dr. Ladan Diehl CO2 [Moles/Vol] 30.8 mmol/L Normal 21.0-32.0 [facility] Comment on above: Performed By: #### A 1C #### [facility] [address] [place] [address] Dr. Ladan Diehl Creatinine [Mass/Vol] 1.40 mg/dL Critically high 0.70-1.30 [facility] Comment on above: Performed By: #### A 1C #### [facility] [address] [place] [address] Dr. Ladan Diehl EGFR-AF OMANI >60 Normal >=60 [facility] Comment on above: Performed By: #### A 1C #### [facility] [address] [place] [address] Dr. Ladan Diehl EGFR-NON AF OMANI 51 mL/min/1.73m2 Critically low >=60 [facility] Comment on above: Performed By: #### A 1C #### [facility] [address] [place] [address] Dr. Ladan Diehl Globulin (S) [Mass/Vol] 5.3 g/dL Normal [facility] Comment on above: Performed By: #### A 1C #### [facility] [address] [address] [address] Ladan Diehl Glucose [Mass/Vol] 125 mg/dL Critically high 74-106 [facility] Comment on above: Performed By: #### A 1C #### [facility] [address] [place] [address] Dr. Ladan Diehl Potassium [Moles/Vol] 4.1 mmol/L Normal 3.5-5.1 [facility] Comment on above: Performed By: #### A 1C #### [facility] [address] [address] [address] Ladan Diehl Protein [Mass/Vol] 8.0 g/dL Normal 6.4-8.2 [facility] Comment on above: Performed By: #### A 1C #### [facility] [address] [address] [address] Ladan Diehl Sodium [Moles/Vol] 138 mmol/L Normal 136-145 [facility] Comment on above: Performed By: #### A 1C #### [facility] [address] [address] [address] Ladan Diehl Urea nitrogen [Mass/Vol] 20.0 mg/dL Critically high 7.0-[address] [facility] Comment on above: Performed By: #### A 1C #### [facility] [address] [place] [address] Dr. Ladan Diehl Urea nitrogen/Creatinine [Mass ratio] 14.3 mg/mg Normal [facility] Comment on above: Performed By: #### A 1C #### [facility] [address] [place] [address] Dr. Ladan Diehl PROTIMEon 01-23-2022 INR Coag (PPP) [Relative time] 1.02 {INR} Normal [facility] Comment on above: Performed By: #### P T, PTT #### [facility] [address] [place] [address] Dr. Ladan Diehl INR GUIDELINES SEE BELOW Normal [facility] Comment on above: Result Comment: KALI RED INR: 2.0 - 3.0 CONDITIONS NOT LISTED BELOW 2.5 - 3.5 FOR PROSTHETIC HEART VALVE REPLACEMENT 2.5 - 3.5 RECURRENT THROMBOSIS Performed By: #### P T, PTT #### [facility] [address] [place] [address] Dr. Ladan Diehl PT Coag (PPP) [Time] 11.0 s Normal 9.0-11.6 [facility] Comment on above: Performed By: #### P T, PTT #### [facility] [address] [address] [address] Ladan Diehl PTTon 01-23-2022 aPTT Coag (Bld) [Time] 27.6 s Normal 22.3-36.2 Th e [facility] Comment on above: Performed By: #### P T, PTT #### [facility] [address] [address] [address] Ladan Diehl TROPONIN, HIGH SENSITIVITYon 01-23-2022 HSTROP 10.4 pg/mL Normal 4.0-76.1 [facility] Comment on above: Result Comment: CUT- OFF POINTS HAVE BEEN ESTABLISHED BASED ON THE FOURTH UNIVERSAL DEFINITIONS OF MYOCARDIAL INFARCTION. THE UPPER REFERENCE LIMIT (URL) OF TROPONIN, DEFINED THE 99TH PERCENTILE OF cTnI DISTRIBUTION IN A REFERENCE POPULATION, HAS BEEN CONFIRMED THE DECISION THRESHOLD FOR [place] DIAGNOSIS. Performed By: #### A 1C #### [facility] [address] [place] [address] ABD/PELV W CONon [...] findings as described above. Electronically authenticated by: GIN PEDRAZA Date: 2022-01-18 23:39 Normal [facility] XR CHEST 1 Von 01-19-2022 XR CHEST [...] by: ROSELIA RIVERA Date: 2022-01-18 22:[address] [facility] XR KNEE LT 4V or >on [...] by: JENNIFER CASTILLO Date: 2022-01-18 23:[address] [facility] CBC AUTO DIFFon 01-18-2022 BASO # 0.1 103/ul Normal 0.0-0.1 [facility] Comment on above: Performed By: #### C BC #### [facility] [address] [place] [address] Dr. Ladan Diehl Basophils/100 WBC (Bld) 0.8 % Normal 0.2-2.0 [facility] Comment on above: Performed By: #### C BC #### [facility] [address] [place] [address] Dr. Ladan Diehl EO # 0.4 103/ul Normal 0.0-0.7 [facility] Comment on above: Performed By: #### C BC #### [facility] [address] [place] [address] Dr. Ladan Diehl Eosinophils/100 WBC (Bld) 4.3 % Normal 0.9-7.0 [facility] Comment on above: Performed By: #### C BC #### [facility] [address] [place] [address] Dr. Ladan Deihl Erythrocyte distribution width (RBC) [Ratio] 14.4 % Normal 11.0-15.0 [facility] Comment on above: Performed By: #### C BC #### [facility] [address] [place] [address] Dr. Ladan Diehl Hematocrit (Bld) [Volume fraction] 37.2 % Critically low 42.0-54.0 [facility] Comment on above: Performed By: #### C BC #### [facility] [address] [place] [address] Dr. Ladan Diehl Hemoglobin (Bld) [Mass/Vol] 11.9 g/dL Critically low 14.0-18.0 [facility] Comment on above: Performed By: #### C BC #### [facility] [address] [place] [address] Dr. Ladan Diehl IG # 0.04 10e3/ul Critically high 0.00-0.03 [facility] Comment on above: Performed By: #### C BC #### [facility] [address] [place] [address] Dr. Ladan Diehl IG % 0.5 % Normal 0.0-0.5 [facility] Comment on above: Performed By: #### C BC #### [facility] [address] [place] [address] Dr. Ladan Diehl LYMPH # 2.2 103/ul Normal 1.2-3.8 [facility] Comment on above: Performed By: #### C BC #### [facility] [address] [place] [address] Dr. Ladan Diehl Lymphocytes/100 WBC (Bld) 26.2 % Normal 20.5-60.0 [facility] Comment on above: Performed By: #### C BC #### [facility] [address] [place] [address] Dr. Ladan Diehl MANUAL DIFF REQ NO Normal [facility] Comment on above: Performed By: #### C BC #### [facility] [address] [place] [address] Dr. Ladan Diehl MCH (RBC) [Entitic mass] 30.4 pg Normal 25.9-34.0 [facility] Comment on above: Performed By: #### C BC #### [facility] [address] [place] [address] Dr. Ladan Diehl MCHC (RBC) [Mass/Vol] 32.0 g/dL Normal 29.9-35.2 [facility] Comment on above: Performed By: #### C BC #### [facility] [address] [place] [address] Dr. Ladan Diehl MCV (RBC) [Entitic vol] 94.9 fL Critically high 80.0-[address] [facility] Comment on above: Performed By: #### C BC #### [facility] [address] [place] [address] Dr. Ladan Diehl MONO # 0.9 103/ul Critically high 0.3-0.8 [facility] Comment on above: Performed By: #### C BC #### [facility] [address] [place] [address] Dr. Ladan Diehl Monocytes/100 WBC (Bld) 10.3 % Normal 1.7-12.0 [facility] Comment on above: Performed By: #### C BC #### [facility] [address] [place] [address] Dr. Ladan Diehl NEUT # 5.0 103/ul Normal 1.4-6.5 [facility] Comment on above: Performed By: #### C BC #### [facility] [address] [place] [address] Dr. Ladan Diehl Neutrophils/100 WBC (Bld) 57.9 % Normal 43.0-75.0 [facility] Comment on above: Performed By: #### C BC #### [facility] [address] [place] [address] Dr. Ladan Diehl Platelet mean volume (Bld) [Entitic vol] 9.9 fL Normal 9.5-13.5 [facility] Comment on above: Performed By: #### C BC #### [facility] [address] [place] [address] Dr. Ladan Diehl PLT 180 103/ul Normal 150-450 [facility] Comment on above: Performed By: #### C BC #### [facility] [address] [place] [address] Dr. Ladan Diehl RBC 3.92 106/ul Critically low 4.70-6.10 [facility] Comment on above: Performed By: #### C BC #### [facility] [address] [address] [address] Ladan Diehl WBC 8.6 103/ul Normal 4.0-11.0 [facility] Comment on above: Performed By: #### C BC #### [facility] [address] [place] [address] Dr. Ladan Diehl PROF 14(COMP METB)on 022 Albumin [Mass/Vol] 2.6 g/dL Critically low 3.4-5.0 [facility] Comment on above: Performed By: #### C MP #### [facility] [address] [place] [address] Dr. Ladan Diehl Albumin/Globulin [Mass ratio] 0.5 {ratio} Normal [facility] Comment on above: Performed By: #### C MP #### [facility] [address] [place] [address] Dr. Ladan Diehl ALP [Catalytic activity/Vol] 184 U/L Critically high 46-116 [facility] Comment on above: Performed By: #### C MP #### [facility] [address] [place] [address] Dr. Ladan Diehl ALT [Catalytic activity/Vol] 24 U/L Normal 16-63 [facility] Comment on above: Performed By: #### C MP #### [facility] [address] [address] [address] Ladan Diehl Anion gap [Moles/Vol] 10.1 mmol/L Normal [facility] Comment on above: Performed By: #### C MP #### [facility] [address] [place] [address] Dr. Ladan Diehl AST [Catalytic activity/Vol] 22 U/L Normal 15-37 [facility] Comment on above: Performed By: #### C MP #### [facility] [address] [address] [address] Ladan Diehl Bilirubin [Mass/Vol] 0.5 mg/dL Normal 0.2-1.0 [facility] Comment on above: Performed By: #### C MP #### [facility] [address] [address] [address] Ladan Diehl Calcium [Mass/Vol] 8.6 mg/dL Normal 8.5-10.1 [facility] Comment on above: Performed By: #### C MP #### [facility] [address] [address] [address] Ladan Diehl Chloride [Moles/Vol] 101 mmol/L Normal 98-107 [facility] Comment on above: Performed By: #### C MP #### [facility] [address] [address] [address] Ladan Diehl CO2 [Moles/Vol] 30.9 mmol/L Normal 21.0-32.0 [facility] Comment on above: Performed By: #### C MP #### [facility] [address] [address] [address] Ladan Diehl Creatinine [Mass/Vol] 1.72 mg/dL Critically high 0.70-1.30 [facility] Comment on above: Performed By: #### C MP #### [facility] [address] [address] [address] Ladan Diehl EGFR-AF OMANI 49 mL/min/1.73m2 Critically low >=60 [facility] Comment on above: Performed By: #### C MP #### [facility] [address] [address] [address] Ladan Diehl EGFR-NON AF OMANI 40 mL/min/1.73m2 Critically low >=60 [facility] Comment on above: Performed By: #### C MP #### [facility] [address] [address] [address] Ladan Diehl Globulin (S) [Mass/Vol] 5.2 g/dL Normal T [facility] Comment on above: Performed By: #### C MP #### [facility] [address] [address] [address] Ladan Diehl Glucose [Mass/Vol] 253 mg/dL Critically high 74-106 [facility] Comment on above: Performed By: #### C MP #### [facility] [address] [place], [place] [address] Dr. Ladan Diehl Potassium [Moles/Vol] 4.0 mmol/L Normal 3.5-5.1 [facility] Comment on above: Performed By: #### C MP #### [facility] [address] [address] [address] Ladan Diehl Protein [Mass/Vol] 7.8 g/dL Normal 6.4-8.2 [facility] Comment on above: Performed By: #### C MP #### [facility] [address] [address] [address] Ladan Diehl Sodium [Moles/Vol] 138 mmol/L Normal 136-145 [facility] Comment on above: Performed By: #### C MP #### [facility] [address] [address] [address] Ladan Diehl Urea nitrogen [Mass/Vol] 30.0 mg/dL Critically high 7.0-[address] [facility] Comment on above: Performed By: #### C MP #### [facility] [address] [address] [address] Ladan Diehl Urea nitrogen/Creatinine [Mass ratio] 17.4 mg/mg Normal [facility] Comment on above: Performed By: #### C MP #### [facility] [address] [address] [address] Ladan Diehl Vital Signs Date Time Vital Sign Value Performing Clinician Facility 05-01-2022 06:00-0400 Diastolic blood pressure 58 mm[Hg] Et3 [facility] 05-01-2022 06:00-0400 Heart rate 89 /min Et3 [facility] 05-01-2022 06:00-0400 Respiratory rate 20 /min Et3 [facility] 05-01-2022 06:00-0400 SaO2% (BldA) [Mass fraction] 91 % [facility] Comment on above: 2 L NC at baseline 05-01-2022 06:00-0400 Systolic blood pressure 86 mm[Hg] [facility]3 [facility] 04-12-2022 15:01-0400 Body temperature 98.3 [degF] MD Ayden Freeman Work Phone: [facility] 04-12-2022 15:01-0400 Diastolic blood pressure 68 mm[Hg] MD Ayden Freeman Work Phone: [facility] 04-12-2022 15:01-0400 Heart rate 90 /min MD Ayden Freeman Work Phone: [facility] 04-12-2022 15:01-0400 Respiratory rate 20 /min MD Ayden Freeman Work Phone: [facility] 04-12-2022 15:01-0400 SaO2% (BldA) [Mass fraction] 92 % MD Ayden Freeman Work Phone: [facility] 04-12-2022 15:01-0400 Systolic blood pressure 130 mm[Hg] MD Ayden Freeman Work Phone: [facility] 04-12-2022 10:48-0400 Body height 177.8 cm MD Ayden Freeman Work Phone: [facility] 04-12-2022 10:48-0400 Body weight 154.22 kg MD Ayden Freeman Work Phone: [facility] 04-09-2022 12:00-0400 Diastolic blood pressure 81 mm[Hg] MD Ayden Freeman Work Phone: [facility] 04-09-2022 12:00-0400 Heart rate 99 /min MD Ayden Freeman Work Phone: [facility] 04-09-2022 12:00-0400 Inhaled oxygen flow rate 2 L/min MD Ayden Freeman Work Phone: [facility] 04-09-2022 12:00-0400 Respiratory rate 18 /min MD Ayden Freeman Work Phone: [facility] 04-09-2022 12:00-0400 SaO2% (BldA) [Mass fraction] 98 % MD Ayden Freeman Work Phone: [facility] 04-09-2022 12:00-0400 Systolic blood pressure 127 mm[Hg] MD Ayden Freeman Work Phone: [facility] 04-09-2022 05:22-0400 Body weight 162 kg MD Ayden Freeman Work Phone: [facility] 04-08-2022 20:00-0400 Inhaled oxygen concentration 30 % MD Ayden Freeman Work Phone: [facility] 04-08-2022 14:56-0400 Body height 177.8 cm MD Ayden Freeman Work Phone: [facility] 04-08-2022 08:11-0400 Body temperature 98 [degF] MD Ayden Freeman Work Phone: [facility] 03-16-2022 11:59-0400 Diastolic blood pressure 90 mm[Hg] MD Ayden Freeman Work Phone: [facility] 03-16-2022 11:59-0400 Heart rate 95 /min MD Ayden Freeman Work Phone: [facility] 03-16-2022 11:59-0400 Respiratory rate 18 /min MD Ayden Freeman Work Phone: [facility] 03-16-2022 11:59-0400 SaO2% (BldA) [Mass fraction] 95 % MD Ayden Freeman Work Phone: [facility] 03-16-2022 11:59-0400 Systolic blood pressure 147 mm[Hg] MD Ayden Freeman Work Phone: [facility] 03-16-2022 08:07-0400 Body temperature 97.8 [degF] MD Ayden Freeman Work Phone: [facility] 03-16-2022 06:00-0400 Body weight 163.5 kg MD Ayden Freeman Work Phone: [facility] 03-14-2022 17:24-0400 Body height 177.8 cm MD Ayden Freeman Work Phone: [facility] 03-14-2022 16:00-0400 Inhaled oxygen flow rate 1 L/min MD Ayden Freeman Work Phone: [facility] Encounters Encounter Date Encounter Type Care Provider Facility Start: 09-16-2023 End: 09-16-2023 ambulatory YADEN FREEMAN Not Available Start: 12-19-2022 End: 12-20-[address] AYDEN FREEMAN Facility:[facility] Start: 06-05-2022 End: 06-06-[address] AYDEN FREEMAN Facility:[facility] Start: 05-29-2022 End: 06-01-[address] AYDEN FREEMAN Facility:[facility] Start: 05-17-2022 End: 05-17-[address] CAROL YIP Facility:[facility] Start: 05-03-2022 ambulatory UNKNOWN PROVIDER Facili ty:[facility] Start: 05-01-2022 End: 05-04-2022 ambulatory UNKNOWN PROVIDER Facility:[facility] Start: 05-01-2022 End: 05-01-2022 ambulatory [facility] Emergen[facility] T[facility], Treat and Transport Start: 05-01-2022 End: 05-01-2022 Emergency department [facility] Comment on above: Arrived Start: 04-24-2022 End: 04-30-2022 ambulatory UNKNOWN PROVIDER Facility:[facility] Start: 04-12-2022 End: 04-12-2022 Emergency department patient visit Ramesh Byrd Facility:[facility] Start: 04-12-2022 End: 04-12-2022 Emergency department patient visit MD Ayden Freeman Work Phone: [facility] Start: 04-10-2022 End: 04-17-2022 ambulatory [facility] Start: 04-02-2022 End: 04-09-2022 Evaluation and management of inpatient MD Ayden Freeman Work Phone: [facility] Start: 03-15-[address] AYDEN FREEMAN Facil ity:[facility] Start: 03-14-2022 End: 03-14-2022 Patient encounter procedure JEFF CARLOS [facility] Start: 03-14-2022 End: 03-16-2022 Evaluation and management of inpatient MD Ayden Freeman Work Phone: [facility] Start: 02-15-[address] AYDEN FREEMAN Facil ity:[facility] Start: 02-01-2022 End: 02-01-2022 ambulatory HINA DIOP . Facility: Start: 01-24-2022 End: 01-24-[address] CAROL YIP Facility:[facility] Start: 01-18-2022 End: 01-19-[address] MASON CASTRO Facility: Procedures Date Procedure Procedure Detail Performing Clinician Start: 12-19-[address] AYDEN FRIEND Comment on above: Performed By: #### P [facility] #### [facility] [address] [place] [address] Dr. Ladan Diehl Start: 04-12-2022 Plain chest [...] 04-12-2022 Plain chest X-ray XR chest 2V* [facility] Start: 04-12-2022 End: 04-12-2022 Emergency department patient visit Departed Emergency [facility] Start: 04-09-2022 [facility] Work Phone: Start: 04-09-2022 [facility] Work Phone: Start: 04-02-2022 End: 04-09-2022 Evaluation and management of inpatient Abrasion of elbow [facility] Start: 04-02-2022 CT angiography of thorax CT angio chest PE protocol [facility] Start: 04-02-2022 Hospital admission [facility] Work Phone: Start: 04-02-2022 X-ray of left knee XR knee LT 2V [facility] Start: 04-02-2022 Plain chest X-ray XR chest 1V portable [facility] Start: 04-02-2022 Plain X-ray of left hip XR hip LT min 2V(w/wo pelvis)* [facility] Start: 04-02-2022 Plain X-ray of left elbow XR elbow LT min 3V* [facility] Start: 03-16-2022 [facility] Work Phone: Start: 03-14-2022 Referral to housekeeping aid [facility] Work Phone: Start: 03-14-2022 Hospital admission [facility] Work Phone: Start: 12-09-2021 Welcome to [...] Screening for malignant neoplasm of colon Colonoscopy [facility] Patient Education [facility] Work Phone: Patient referral [facility] Work Phone: Payers Date Payer Category Payer Self-pay [id number] 2021 Medicare [employer] - MEDICARE UHC HMO SNP [id number] 2021-Present [phone] [address] [address] [place] [address] Medicare [id number] 2021 Private Health Insurance [id number] 2017 Unknown [id number] 1959 Medicaid [id number] 1959 Medicare [id number] 1957 Unknown [id number] 2.16.840.1.823010.3.579.2. 732 1957 Unknown [id number] 2.16.840.1.558046.3.579.2. 732 1957 Unknown [id number] 2.16.840.1.591709.3.579.2. 732 1957 Unknown [id number] 2.16.840.1.898979.3.579.2. 732 1957 Unknown [id number] 2.16.840.1.151670.3.579.2. 593 1957 Unknown [id number] 2.16.840.1.976824.3.579.2. 593 1957 Unknown [id number] 2.16.840.1.965202.3.579.2. 593 1957 Unknown [id number] 2.16.840.1.374631.3.579.2. 593 1957 Unknown [id number] 2.16.840.1.727279.3.579.2. 593 1957 Unknown [id number] 2.16.840.1.788303.3.579.2. 593 1957 Unknown [id number] 2.16.840.1.936846.3.579.2. 593 1957 Unknown [id number] 2.16.840.1.390575.3.579.2. 593 1957 Unknown [id number] 2.16.840.1.509178.3.579.2. 593 1957 Unknown [id number] 2.16.840.1.853772.3.579.2. 1259 Medicare Medicare [id number] Medicare Medicare Psych-IP Part A [id number] Medicare [place] [facility] PFFS [id number] Medicare [place] [employer] [facility] [id number] Unknown [facility] [id number] Unknown [id number] 2.16.840.1.412020.3.579.2. 531 Social History Date Type Detail Facility Tobacco smoking status No Smoking Status Entered [facility] Sex Assigned At Male [facility] Start: 04-02-2022 End: 04-12-2022 Tobacco smoking status NHIS Never smoked tobacco (finding) [facility] Start: 1955 Sex Assigned At Male [facility] Tobacco smoking status [facility] Tobacco smoking consumption unknown [facility] Start: 1955 Sex Assigned At Not on file [facility] Medical Equipment Procedure Code Equipment Code Equipment [...] status 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 Baseline [facility] Work Phone: 03-16-2022 Functional status Patient at Baseline [facility] Work Phone: Mental Status Date Assessment Result Facility 04-09-2022 Cognitive function Cognitive Sta tus Patient at Baseline [facility] Work Phone: 03-16-2022 Cognitive function Cognitive Sta tus Patient at Baseline [facility] Work Phone: Clinical Notes 2021 to 05-03-2022 Peter Molina DO - 05/03/2022 9:41 AM EDT Note Date & Type Note Facility 05-03-2022 History of Presen t illness Narrative Images from the original note were not included. EMERGENCY TRIAGE, TREAT AND TRANSPORT (ET3) DOCUMENTATION OF TELEHEALTH VISIT Date / Time: 05/01/2022599 Name: Evelin Patterson : 1955 SSN: [id number] EMS Agency: [facility] [x] Verbal consent obtained [] Implied [...] Peter Molina DO documented in this encounter [facility] 04-08-2022 Progress note Note Date/Time April 08, 2022 1:38pm [facility] [address] [place] [address] Hospitalist Progress Note Signed Patient: Evelin Patterson MR#: [id number] : 1955 Acct:[id number] Age/Sex: 66 / M Adm Date: 2 Loc: 3T Room: [address] [place] [address] Type: ADM INOo Attending Dr: Lupe Hernandez [...] Hypothyroidism: Plan Patient currently awaiting placement to custodial facility. Remains in normal sinus rhythm. He [...] By: <Electronically signed by Lupe Hernandez MD> 04/08/221337 [facility] Work Phone: 1(974) 746-927908-28-2022 Discharge summary Author Luke Moran [facility] April 07, 2022 4:16pm Note Date/Time April 05, 2022 10 :05am [facility] [address] [place] [address] Discharge Summary Signed with Addenda Patient: Evelin Patterson MR#: [id number] : 1955 Acct:[id number] Age/Sex: 66 / M Adm Date: 2 Loc: Room: [address] [place] [address]: Luke Moran MD Copies to: MD Ayden Connolly MD~ ADDENDUM1 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 Patient has been seen in the past by Dr. Clemente Olivarez. Outpatient f/u by hematology service was recommended. Addendum Documented By: Luke Moran MD 04/07/22 161 Addendum Signed By: <Electronically signed by Luke [...] discharged home in stable condition to a custodial facility. Medical therapy was adjusted as noted [...] 10:24: POC Glucose 271 04/03/22 07:34: Free [place] LC, Quant 93.9 H, Free [place] LC, Quant 61.6 H, Free [place]/Lambda Ratio 1.52 Exam Physical Exam Vital Signs: Temp Pulse Resp BP Pulse Ox O2 Del Method O2 Flow Rate 97.9 F 85 20 134/76 90 L Room Air 2 04/05/22 08:00 04/05/22 08:00 04/05/22 08:00 04/05/22 08:00 04/05/22 08:00 04/05/22 08:00 04/05/22 08:00 FiO2 30 04/04/22 22:34 Discharge Plan Discharge Plan Patient Disposition: Jail Facility Activity: Ambulate as Tolerated Diet: Diabetic and Low-Sodium Additional Instructions: Please have company providing CPAP machine fit the patient with a mask that he can tolerate. Use a CPAP of 8 whenever asleep until the sleep study performed. Jail Facility to manage care: - Full code [...] Instructions: Sliding Scale ACHS Other Ambulatory Orders: ELECTROTYPE FINISHER polysom procedure (Routine) Timeframe: 3 Weeks Location: Determined by Patient Ordered By: Luke Moran Follow Up: [facility] Sleep Lab [Outside] ([facility] Sleep [facility] or Central Scheduling will call you to arrange date/time for sleep study. ) Documented By: Luke Moran MD 04/07/22 4418 Signed By: <Electronically signed by Luke Moran MD> 04/07/22 7127 [facility] Work Phone: 1(759) 388-459708-27-2022 Progress note Author Luke Moran [facility] April 06, 2022 2:50pm Note Date/Time April 06, 2022 2: 50pm [facility] [address] [place] [address] Hospitalist Progress Note Signed Patient: Evelin Patterson MR#: [id number] : 1955 Acct:[id number] Age/Sex: 66 / M Adm Date: 2 Loc: 3T Room: [address] [place] [address] Type: ADM INOo Attending Dr: Luke Moran [...] Rahel PRN Reason Stop Dose Admin Acetaminophen 1,000 [...] signed by Luke Moran MD> 04/06/22 1450 [facility] Work Phone: 1(764) 402-670708-25-2022 Progress note Author Luke Moran [facility] April 04, 2022 4:25pm Note Date/Time April 04, 2022 4: 25pm [facility] [address] [place] [address] Hospitalist Progress Note Signed Patient: Evelin Patterson MR#: [id number] : 1955 Acct:[id number] Age/Sex: 66 / M Adm Date: 2 Loc: Room: [address] [place] [address] Type: ADM INOo Attending Dr: Luke Moran [...] Rahel PRN Reason Stop Dose Admin Acetaminophen 1,000 [...] <Electronically signed by Luke Moran MD> 04/04/22 3663 [facility] Work Phone: 1(822) 841-440908-24-2022 Progress note Author Luke Moran [facility] April 03, 2022 2:05pm Note Date/Time April 03, 2022 2: 05pm [facility] [address] [place] [address] Hospitalist Progress Note Signed Patient: Evelin Patterson MR#: [id number] : 1955 Acct:[id number] Age/Sex: 66 / M Adm Date: 2 Loc: Room: [address] [place] [address] Type: ADM INOo Attending Dr: Luke Moran [...] BID JOSIANE Administration Hydroxyzine Pamoate 25 mg 08/23/22 23:00 04/02/22 23:25 Hydroxyzine Pamoate 25 Mg [...] ml PRN PRN Administration Flush Documented By: Luek Moran MD 04/03/229 Signed By: <Electronically signed by Luke Moran MD> 04/03/22 1408 [facility] Work Phone: 1(406) 293-517608-23-2022 History and physical note Author Luke Moran [facility] April 02, 2022 7:48pm Note Date/Time April 02, 2022 7: 45pm [facility] [address] [place] [address] Hospitalist H&P Signed Patient: Evelin Patterson MR#: [id number] : 1955 Acct:[id number] Age/Sex: 66 / M Adm Date: 2 Loc: ER Room: [facility] Attending Dr: Copies to: MD Jair [...] Type: None Social History Comments: [facility] in [facility] in [facility] Medications and Allergies Allergies metformin [...] % (Auto) 8.7 % (.) 04/02/22 17:51 [place] % (Auto) 12.2 % (.) 04/02/22 17:51 Eos % (Auto) 2.4 % (.) 04/02/22 17:51 Baso % (Auto) 0.6 % (.) 04/02/22 17:51 Neut # (Auto) 6.4 x10E3/uL (1.8-7.7) 04/02/22 17:51 Lymph # (Auto) 0.7 x10E3/uL (1.00-4.8) L 04/02/22 17:51 [place] # (Auto) 1.0 x10E3/uL (0.0-0.8) H 04/02/22 [...] <Electronically signed by Luke Moran MD> 04/02/221947 [facility] Work Phone: [phone]) 944-153508-06-2022 Discharge summary Author Xin Phan [facility] March 16, 2022 9:37am Note Date/Time March 16, 2022 9:3 7am [facility] [address] [place] [address] Discharge Summary Signed Patient: Evelin Patterson MR#: [id number] : 1955 Acct:[id number] Age/Sex: 66 / M Adm Date: 2 Loc: Room: [address] [place] [address]: Xin Phan MD Copies to: [...] anxiety and depression who was transferred from [facility] for acute kidney injury.? Patient presented with generalized weakness and disorientation at [facility]. He was noted to have blood [...] headache or dizziness.? No fevers Paperwork from [facility] reviewed, chest x-ray with no acute cardiopulmonary process.? Sodium 129.? Potassium 3.3.? Creatinine 2.52.? WBC 6.8.? Hemoglobin 12.5.? Glucose 4.34.? Patient will be admitted by the hospitalist team for further evaluation and management. Patient was positive for COVID, patient was alert oriented x3 at [facility], patient states that he has been having [...] untreated sleep apnea Instructions: Blood Glucose Monitoring, [facility] COVID-19 Discharge Instructions Prescriptions: New Levemir FlexTouch [...] signed by Xin Phan MD> 03/16/22 0937 [facility] Work Phone: 1(250) 835-907508-05-2022 Progress note Author Sarah Osuna [facility] March 15, 2022 3:43pm Note Date/Time March 15, 2022 3:3 7pm [facility] [address] [place] [address] Nephrology Progress Note Signed Patient: Evelin Patterson MR#: [id number] : 1955 Acct:[id number] Age/Sex: 66 / M Adm Date: 2 Loc: Room: [address] [place] [address] Type: ADM IN Attending Dr: Xin Phan MD Copies to: ~ Date of Service: 03/15/2022 Subjective Subjective Narrative: This is 66-year-old male patient with a past medical history of morbid obesity, endocarditis, paroxysmal A. fib, diabetes type 2, anxiety and depression and chronic kidney disease stage III. Patient presented to [facility] with feeling weak and disoriented for 2 weeks which has gotten worse. Patient has been having cough with decreased appetite and loss of taste for a week. Lab at [facility] shows acute kidney injury with creatinine up to 4.3 mg/dL along with hyperglycemia with initial blood glucose level more than 400. Patient's blood pressure was in the 80s at [facility]. Patient was given IV fluid and [...] (Dexamethasone 4 mg) 6 mg PO DAILY [facility] Stop: 03/22/23 08:59 Last Admin: 03/15/22 08:34 [...] Ml) 1,000 mls @ 100 mls/hr IV .[id number] Stop: 03/14/23 01:59 Last Admin: 03/15/22 06:46 Dose: 100 mls/hr Insulin Aspart (Insulin Aspart 300 Units/3 Ml Insuln.Pen) 0 units SUBCUT TID.WM.HS [facility]; Protocol Stop: 03/14/23 07:59 Last Admin: 03/15/22 12:06 Dose: 9 units Insulin Detemir (Insulin Detemir 300 Units/3 Ml Insuln.Pen) 40 units SUBCUT DAILY.WITH.BKFAST [facility] Stop: 03/16/23 07:59 Zinc Sulfate (Zinc Sulfate 220 Mg Capsule) 220 mg PO DAILY [facility] Stop: 03/14/23 08:59 Last Admin: 03/15/22 08:34 [...] reading physician into a diagnostic report(s) for Evelin Blackmanman. I have reviewed the report(s) and am [...] question Documented By: Sarah Osuna MD 03/15/22 5751 Signed By: <Electronically signed by Sarah Osuna MD> 03/15/22 0040 [facility] Work Phone: 1([phone]) 900-494708-05-2022 Progress note Author Xin Phan [facility] March 15, 2022 12:44pm Note Date/Time March 15, 2022 12: 44pm [facility] [address] [place] [address] Hospitalist Progress Note Signed Patient: Evelin Patterson MR#: [id number] : 1955 Acct:[id number] Age/Sex: 66 / M Adm Date: 2 Loc: Room: [address] [place] [address] Type: ADM IN Attending Dr: Xin Phan MD Copies to: ~ Date of Service: 03/15/2022 Subjective Subjective Narrative: Patient is a 66-year-old male, with a PMHx of Morbid obesity, endocarditis in August of this year, atrial fibrillation, type 2 diabetes, hypertension, liver cirrhosis, anxiety and depression who was transferred from [facility] for acute kidney injury. Patient presented with generalized weakness and disorientation at [facility]. He was noted to have blood [...] headache or dizziness. No fevers Paperwork from [facility] reviewed, chest x-ray with no acute [...] Freq PRN Reason Stop Dose Admin Acetaminophen 650 [...] secondary to poor oral intake. Presented at [facility] with low blood pressures in the 80s. ?Creatinine at [facility] 4.34. Baseline creatinine ~1.4 - Nephrology [...] noncompliance to diabetic diet ?Blood sugar at [facility] was in the 400s ? Will increase [...] signed by Xin Phan MD> 03/15/22 1244 [facility] Work Phone: 1(421) 965-171008-04-2022 Progress note Author Renato Looney [facility] March 14, 2022 2:14pm Note Date/Time March 14, 2022 2:1 4pm [facility] [address] [place] [address] Progress Note Signed Patient: Evelin Patterson MR#: [id number] : 1955 Acct:[id number] Age/Sex: 66 / M Adm Date: 2 Loc: Room: [address] [place] [address] Type: ADM IN Attending Dr: Renato Looney MD Copies to: ~ Date of Service: 03/14/2022 Progress Narrative Note PROGRESS NOTE Progress Note: Patient seen and evaluated by drilling foreman early this morning and also by myself. Briefly, patient is a 66-year-old male past medical history significant for obesity, atrial fibrillation, hypertension, diabetes, liver cirrhosis, mood disorder and recent endocarditis infection who presented to outlying facility due to generalized weakness found to have COVID-19 and acute kidney injury and was transferred to [facility] for further evaluation and management. 1. [...] <Electronically signed by Renato Looney MD> 03/14/22 8965 [facility] Work Phone: 1(175) 172-117308-04-2022 Consult note Author Sarah Osuna [facility] March 14, 2022 12:30pm Note Date/Time March 14, 2022 12: 30pm [facility] [address] [place] [address] Nephrology Consult Note Signed Patient: Evelin Patterson MR#: [id number] : 1955 Acct:[id number] Age/Sex: 66 / M Adm Date: 2 Loc: Room: [address] [place] [address] Type: ADM IN Attending Dr: Renato Looney [...] kidney disease stage III. Patient presented to [facility] with feeling weak and disoriented for 2 weeks which has gotten worse. Patient has been having cough with decreased appetite and loss of taste for a week. Lab at [facility] shows acute kidney injury with creatinine up to 4.3 mg/dL along with hyperglycemia with initial blood glucose level more than 400. Patient's blood pressure was in the 80s at [facility]. Patient was given IV fluid and [...] Type: None Social History Comments: Lives in [facility] in [facility] Medications & Allergies Allergies metformin [...] 500 Mg Tablet) 500 mg PO DAILY [facility] Stop: 03/14/23 08:59 Last Admin: 03/14/22 08:34 Dose: 500 mg Dexamethasone 2 mg/ (Dexamethasone 4 mg) 6 mg PO DAILY [facility] Stop: 03/22/23 08:59 Last Admin: 03/14/22 08:33 [...] Q12HR JOSIANE Stop: 03/14/23 08:59 Last Admin: 03/14/22 08:39 Dose: 5,000 unit Sodium Chloride (0.9% Sodium Chloride 1,000 Ml) 1,000 mls @ 100 mls/hr IV .[id number] Stop: 03/14/23 01:59 Last Admin: 03/14/22 03:26 Dose: 100 mls/hr Insulin Aspart (Insulin Aspart 300 Units/3 Ml Insuln.Pen) 0 units SUBCUT TID.WM.HS [facility]; Protocol Stop: 03/14/23 07:59 Last Admin: 03/14/22 12:06 Dose: Not Given Insulin Detemir (Insulin Detemir 300 Units/3 Ml Insuln.Pen) 35 units SUBCUT DAILY.WITH.BKFAST [facility] Stop: 03/14/23 07:59 Last Admin: 03/14/22 08:34 Dose: 35 units Zinc Sulfate (Zinc Sulfate 220 Mg Capsule) 220 mg PO DAILY [facility] Stop: 03/14/23 08:59 Last Admin: 03/14/22 08:34 Dose: 220 mg Exam Physical Exam Vital Signs: Temp Pulse Resp BP Pulse Ox O2 Del Method O2 Flow Rate 97.7 F 80 18 126/86 97 Nasal Cannula 2 03/14/22 04:00 03/14/22 08:46 03/14/22 08:46 03/14/22 08:46 03/14/22 08:46 08/04/22 08:46 03/14/22 08:46 Narrative: General: No acute [...] Michael Tinajero M.D.03/14/2022 8:24 AM Dictation Location: [place] [address] Any impression(s) listed above is documentation that was entered by the reading physician into a diagnostic report(s) for Evelin Patterson. I have reviewed the report(s) and [...] question Documented By: Sarah Osuna MD 03/14/22 7661 Signed By: <Electronically signed by Sarah Osuna MD> 03/14/22 7823 [facility] Work Phone: 1(107) 949-234808-04-2022 History and physical note Author Mary Jane Riley [facility] March 14, 2022 6:40am Note Date/Time March 14, 2022 2:0 2am [facility] [address] [place] [address] Hospitalist H&P Signed Patient: Evelin Patterson MR#: [id number] : 1955 Acct:[id number] Age/Sex: 66 / M Adm Date: 2 Loc: Room: [address] [place] [address] Type: ADM IN Attending Dr: Mary Jane Hanna MD Copies to: MD Leah Marin APRN Marc Naderer, MD~ HPI DATE OF EXAMINATION: 03/14/22 CHIEF COMPLAINT: FRANC HISTORY OF PRESENT ILLNESS: Patient is a 66-year-old male, with a PMHx of Morbid obesity, endocarditis in August of this year, atrial fibrillation, type 2 diabetes, hypertension, liver cirrhosis, anxiety and depression who was transferred from [facility] for acute kidney injury. Patient presented with generalized weakness and disorientation at [facility]. He was noted to have blood [...] headache or dizziness. No fevers Paperwork from [facility] reviewed, chest x-ray with no acute cardiopulmonary process. Sodium 129. Potassium 3.3. Creatinine 2.52. WBC 6.8. Hemoglobin 12.5. Glucose 4.34. Patient will be admitted by the hospitalist team for further evaluation and management. Review of Systems Review of Systems Review of systems: 10 point review of systems obtained, negative unless noted in the HPI or below [facility] Medical History Abdominal mass Anxiety Arthritis Back pain Cirrhosis Colonoscopy planned Deviated nasal septum Diabetes mellitus, type 2 Eczema History of left heart catheterization Pneumonia Surgical History History of cholecystectomy History of hydrocelectomy History of lithotripsy History of nasal surgery Family History Mother Cancer Social History Smoking Status: Never smoker Substance Use Type: None Social History Comments: Lives in [facility] in [facility] Medications and Allergies Allergies metformin [...] secondary to poor oral intake. Presented at [facility] with low blood pressures in the 80s. ?Creatinine at [facility] 4.34. Baseline creatinine ~1.4 ?Urine sodium, creatinine, urea pending ? Urine output monitoring ? Start IV fluids ? Hold home lisinopril and renally adjust medications ?Consider renal ultrasound if no improvement ? Nephrology consult ?Monitor BMP COVID-19 positive -unvaccinated. ? Presented with productive cough, hypoxia, loss of taste and generalized weakness ? Afebrile, no leukocytosis ? Chest x-ray from [facility] did not show any acute cardiopulmonary [...] noncompliance to diabetic diet ?Blood sugar at [facility] was in the 400s ?Basal insulin [...] the plan of care and confirmed the resident's/internal sales/medical student's dictation/written note. Patient is a 66-year-old [...] by Mary Jane Hanna MD> 03/14/22 0640 [facility] Work Phone: 1(764) 966-340404-19-2022 Progress note Author Lupe Hernandez [facility] April 09, 2022 3:32pm Note Date/Time April 09, 2022 1: 08pm [facility] [address] [place] [address] Hospitalist Progress Note Signed with Addenda Patient: Evelin Patterson MR#: [id number] : 1955 Acct:[id number] Age/Sex: 66 / M Adm Date: 2 Loc: Room: [address] [place] [address] Type: DIS INOo Attending Dr: Lupe Hernandez MD Copies to: ~ ADDENDUM1 Patient was personally seen by me on the day of encounter, reviewed his history and performed long elements of exam and formulated the plan of care and confirmedthe residents note below. Unfortunately patient has been denied by insurance for custodial facility after peer to peer. He will [...] to thrive, paroxysmal A. fib, CKD 3, wzn-jbjpcev-zdrztljau diabetes, CHF is being monitored on the floor while a [id number]-gm-[id number] was had with regards to the patient's discharge to a custodial facility. Insurance company has denied this coverage [...] agreed the patient would do well at custodial facility. Documented By: Allen Perez DO, RES 2 1302 Signed By: <Electronically signed by DO TAMMIE Perez> 04/09/22 1308 <Electronically signed by Lupe Hernandez MD> 04/09/22 1531 [facility] Work Phone: Discharge summary Author Luke Moran [facility] April 07, 2022 4:16pm Note Date/Time April 05, 2022 10 :05am [facility] [address] [place] [address] Discharge Summary Signed with Addenda Patient: Evelin Patterson MR#: [id number] : 1955 Acct:[id number] Age/Sex: 66 / M Adm Date: 2 Loc: Room: [address] [place] [address]: Luke Moran MD Copies to: MD Ayden Connolly MD~ ADDENDUM1 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 Patient has been seen in the past by Dr. Clemente Olivarez. Outpatient f/u by hematology service was recommended. Addendum Documented By: Luke Moran MD 04/07/221615 Addendum Signed By: <Electronically signed by Luke [...] discharged home in stable condition to a custodial facility. Medical therapy was adjusted as noted [...] 10:24: POC Glucose 271 04/03/22 07:34: Free [place] LC, Quant 93.9 H, Free [place] LC, Quant 61.6 H, Free [place]/Lambda Ratio 1.52 Exam Physical Exam Vital Signs: Temp Pulse Resp BP Pulse Ox O2 Del Method O2 Flow Rate 97.9 F 85 20 134/76 90 L Room Air 2 04/05/22 08:00 04/05/22 08:00 04/05/22 08:00 04/05/22 08:00 04/05/22 08:00 04/05/22 08:00 04/05/22 08:00 FiO2 30 04/04/22 22:34 Discharge Plan Discharge Plan Patient Disposition: Jail Facility Activity: Ambulate as Tolerated Diet: Diabetic and Low-Sodium Additional Instructions: Please have company providing CPAP machine fit the patient with a mask that he can tolerate. Use a CPAP of 8 whenever asleep until the sleep study performed. Jail Facility to manage care: - Full code [...] Qty: 150 0RF Rx Instructions: As Directed ([facility]) Za Lancet-Glucose Test Strp 30 gauge Combo [...] Instructions: Sliding Scale ACHS Other Ambulatory Orders: ELECTROTYPE FINISHER polysom procedure (Routine) Timeframe: 3 Weeks Location: Determined by Patient Ordered By: Luke Moran Follow Up: [facility] Sleep Lab [Outside] ([facility] or Central Scheduling will call you to arrange date/time for sleep study. ) Documented By: Luke Moran MD 04/07/22 0959 Signed By: <Electronically signed by Luke Moran MD> 04/07/22 1610 [facility] Work Phone: Evaluation + Plan note No data available for this section [facility] [place] Evaluation note* Diagnosis Onset Date Resolution Status FRANC (acute kidney injury) [place] Chronic kidney disease, stage III (moderate) acute COVID acute Diabetes acute Hyperglycemia acute Hypertension acute Hyponatremia acute Abrasion of elbow acute CHF (congestive heart failure) acute Diabetes mellitus, type 2 [place] Failure to thrive acute Fall acute Hypergammaglobulinemia acute Hypothyroidism acute Hypoxemia acute Morbid obesity due to excess calories acute Obstructive sleep apnea acut e Unable to care for self acut e [facility] Work Phone: Evaluation note* Diagnosis Hypotension, unspecified hypotension type- Primary Fall, initial encounter Refusal of treatment Surgical or other procedure not carried out because of patient's decision documented in this encounter [facility] information available[facility]icothe [facility] Work Phone: Hospital Discharge instructions No data available for this section [facility] Discharge instructionsAmbulatory Orders* Initiate Home Health Time Frame: 04/09/22, Location: Determined By Patient Additional Instructions Please wear home oxygen at 2l at all times. HOME HEALTH TO MANAGE: Nursing/PT/OT/Aide/Outplacement Consultant to eval and treat Monitor VS per protocol Maintain home oxygen at 2l continuous *Oxygen therapy is new, educate patient on Monitor Respiratory assessment Assist with medication management and provide medication education Assist with glucose control Skin care TID: *Theraworx protect to bilateral groin and abdominal fold redness. *Educate patient on Provide education on high risk fall precautions [facility] Work Phone: Hospital Discharge instructions Additional Instructions If your symptoms return/worsen or you develop any further concerns or symptoms please see your doctor or return to the emergency department immediately.[facility] Work Phone: Progress note No data available for this section [facility] Progress note Author Sarah Osuna [facility] March 16, 2022 12:40pm Note Date/Time March 16, 2022 12: 36pm [facility] EN[facility] [address] [place] [address] Nephrology Progress Note Signed Patient: Evelin Patterson MR#: [id number] : 1955 Acct:[id number] Age/Sex: 66 / M Adm Date: 2 Loc: Room: [address] [place] [address] Type: ADM IN Attending Dr: Xin Phan MD Copies to: ~ Date of Service: 03/16/2022 Subjective Subjective Narrative: This is 66-year-old male patient with a past medical history of morbid obesity, endocarditis, paroxysmal A. fib, diabetes type 2, anxiety and depression and chronic kidney disease stage III. Patient presented to [facility] with feeling weak and disoriented for 2 weeks which has gotten worse. Patient has been having cough with decreased appetite and loss of taste for a week. Lab at [facility] shows acute kidney injury with creatinine up to 4.3 mg/dL along with hyperglycemia with initial blood glucose level more than 400. Patient's blood pressure was in the 80s at [facility]. Patient was given IV fluid and [...] 5 Mg Tablet) 5 mg PO DAILY [facility] Stop: 03/15/23 15:59 Last Admin: 03/16/22 08:08 Dose: 5 mg Ascorbic Acid (Ascorbic Acid 500 Mg Tablet) 500 mg PO DAILY [facility] Stop: 03/14/23 08:59 Last Admin: 03/16/22 08:08 Dose: 500 mg Dexamethasone 2 mg/ (Dexamethasone 4 mg) 6 mg PO DAILY [facility] Stop: 03/22/23 08:59 Last Admin: 03/16/22 08:08 [...] 5,000 Unit/Ml Vial) 5,000 unit SUBCUT Q12HR [facility] Stop: 03/14/23 08:59 Last Admin: 03/16/22 08:09 Dose: Not Given Insulin Aspart (Insulin Aspart 300 Units/3 Ml Insuln.Pen) 0 units SUBCUT TID.WM.HS [facility]; Protocol Stop: 03/14/23 07:59 Last Admin: 03/16/22 11:57 Dose: 8 units Insulin Detemir (Insulin Detemir 300 Units/3 Ml Insuln.Pen) 40 units SUBCUT DAILY.WITH.BKFAST [facility] Stop: 03/16/23 07:59 Last Admin: 03/16/22 08:10 Dose: 40 units Zinc Sulfate (Zinc Sulfate 220 Mg Capsule) 220 mg PO DAILY [facility] Stop: 03/14/23 08:59 Last Admin: 03/16/22 08:08 [...] reading physician into a diagnostic report(s) for Evelin Patterson. I have reviewed the report(s) and [...] question Documented By: Sarah Osuna MD 03/16/22 1232 Signed By: <Electronically signed by Sarah Osuna MD> 03/16/22 1244 [facility] Work Phone: Progress note Author Luke Moran [facility] April 03, 2022 2:05pm Note Date/Time April 03, 2022 2: 05pm [facility] EN[facility] [address] [place] [address] Hospitalist Progress Note Signed Patient: Evelin Patterson MR#: [id number] : 1955 Acct:[id number] Age/Sex: 66 / M Adm Date: 2 Loc: Room: [address] [place] [address] Type: ADM INOo Attending Dr: Luke Moran [...] <Electronically signed by Luke Moran MD> 04/03/22 1409 [facility] Work Phone: Progress note Author Luke Moran [facility] April 04, 2022 4:25pm Note Date/Time April 04, 2022 4: 25pm [facility] [address] [place] [address] Hospitalist Progress Note Signed Patient: Evelin Patterson MR#: [id number] : 1955 Acct:[id number] Age/Sex: 66 / M Adm Date: 2 Loc: Room: [address] [place] [address] Type: ADM INOo Attending Dr: Luke Moran [...] By: <Electronically signed by Luke Moran MD> 04/04/225 [facility] Work Phone: Progress note Author Luke Moran [facility] April 06, 2022 2:50pm Note Date/Time April 06, 2022 2: 50pm [facility] EN[facility] [address] [place] [address] Hospitalist Progress Note Signed Patient: Evelin Patterson MR#: [id number] : 1955 Acct:[id number] Age/Sex: 66 / M Adm Date: 2 Loc: Room: 9Q0601-7 Type: ADM INOo Attending Dr: Luke Moran [...] signed by Luke Moran MD> 04/06/22 1450 [facility] Work Phone: Progress note Author Lupe Hernandez [facility] April 08, 2022 1:38pm Note Date/Time April 08, 2022 1: 38pm [facility] [address] [place] [address] Hospitalist Progress Note Signed Patient: Evelin Patterson MR#: [id number] : 1955 Acct:[id number] Age/Sex: 66 / M Adm Date: 2 Loc: Room: [address] [place] [address] Type: ADM INOo Attending Dr: Lupe Hernandez [...] Hypothyroidism: Plan Patient currently awaiting placement to custodial facility. Remains in normal sinus rhythm. He [...] <Electronically signed by Lupe Hernandez MD> 04/08/22 1338 [facility] Work Phone: Chief Complaint and Reason [...] Records FoundNo Status Records FoundNo Status Records FoundNo Status Records Found INFORMATION SOURCE (unrecogn ized section and content) DATE CREATED AUTHOR 05/08/2022 [employer] [facility] DATE CREATED AUTHOR AUTHOR'S ORGANIZ ATION 12/23/2022 [facility] DATE CREATED AUTHOR AUTHOR'S ORGANIZ ATION 04/12/2023 [facility] DATE CREATED AUTHOR AUTHOR'S ORGANIZ ATION 09/17/2023 [facility] EPIC Reason for Visit (unrecogniz ed section and [...] BE BASED ON THE PRIMARY CLINICAL RECORDS. [facility]. provides no warranty or guarantee of the accuracy or completeness of information in this document.
--- NOTE | 2024-01-30 14:09 | XR_ITS ---
The [address] [address] Patient Name: EVELIN CAMACHO MRN: [id number] date: 1955 Sex: M Assigned Patient Location: LAB Current Patient Location: Accession/Order Number: [id number] Exam Date: 01/30/2024 14:20 Report Date: 02/02/2024 07:34 At the request of: DANIS ISBELL Procedure: XR knee RT 3V PROCEDURE: XR knee RT 3V COMPARISON: 09/10/2023 HISTORY: Knee Osteoarthritis M17.9 FINDINGS: BONES:No fracture, acute abnormality, or significant arthropathy. SOFT TISSUES:Negative. No visible soft tissue swelling. EFFUSION:None visible. OTHER: Negative. XR/XR knee RT 3V IMPRESSION: No acute radiographic abnormality Electronically authenticated by: ROSELIA CARRILLO Date: 02/02/2024 07:34
[2024-01-30 14:16] LABS: Basophils Absolute Auto 0.1 10^3/uL (0.0-0.1); Basophils Percent Auto 1.8 % (0.2-2.0); Eosinophils Absolute Auto 0.5 10^3/uL (0.0-0.7); Eosinophils Percent Auto 8.2 % (0.9-7.0); Hematocrit 36.2 % (42.0-54.0); Hemoglobin 11.7 g/dL (14.0-18.0); Immature Granulocytes Abs Auto 0.01 10^3/uL (0.00-0.03); Immature Granulocytes Pct Auto 0.2 % (0.0-0.5); Lymphocytes Absolute Auto 1.4 10^3/uL (1.2-3.8); Lymphocytes Percent Auto 21.6 % (20.5-60.0); Mean Corpuscular HGB Conc 32.3 g/dL (29.9-35.2); Mean Corpuscular Hemoglobin 27.7 pg (25.9-34.0); Mean Corpuscular Volume 85.8 fL (80.0-94.0); Monocytes Absolute Auto 0.6 10^3/uL (0.3-0.8); Monocytes Percent Auto 8.7 % (1.7-12.0); Neutrophils Absolute Auto 3.9 10^3/uL (1.4-6.5); Neutrophils Percent Auto 59.5 % (43.0-75.0); Platelet Count 236 10^3/uL (150-450); Red Blood Count 4.22 10^6/uL (4.70-6.10); Red Cell Distribution Width 14.6 % (11.0-15.0); White Blood Count 6.6 10^3/uL (4.0-11.0)
[2024-01-30 14:24] LABS: Estimated Average Glucose 143 mg/dL; Glycohemoglobin A1C 6.6 % (4.5-6.2)
[2024-01-30 16:03] LABS: Alanine Aminotransferase 22 U/L (16-63); Albumin Globulin Ratio 0.5; Albumin Level 2.9 g/dL (3.4-5.0); Alkaline Phosphatase 155 U/L (46-116); Anion Gap 12.9; Aspartate Amino Transferase 32 U/L (15-37); BUN Creatinine Ratio 12.7; Bilirubin Total 0.8 mg/dL (0.2-1.0); Carbon Dioxide 25.1 mmol/L (21.0-32.0); Chloride 101 mmol/L (98-107); Chol HDL Ratio 4.5; Cholesterol 209 mg/dL (<=200); Estimated GFR (African America >60 (>=60); Estimated GFR (Non-African Ame 53 (>=60); Free T3 1.49 pg/mL (2.18-3.98); Globulin 5.7 g/dL; Glucose 155 mg/dL (74-106); HDL Cholesterol 46 mg/dL (40-60); Magnesium 1.6 mg/dL (1.8-2.4); Sodium 135 mmol/L (136-145); Thyroid Stimulating Hormone 31.763 uIU/mL (0.358-3.740); Total Protein 8.6 g/dL (6.4-8.2); Triglycerides 145 mg/dL (<=150); Uric Acid 5.6 mg/dL (3.5-7.2)
[2024-01-30 16:10] LABS: Prostate Specific Antigen Dx 1.07 ng/mL (<=4.00)
[2024-01-31 04:09] LABS: Insulin 30.5 uIU/mL (2.6-24.9)
== END 2024-01-30 13:40 | disposition home or self-care (01) ==
LOC: LAB 13:41
PROVIDERS: PCP Nurse Practitioner Family; Visit Provider Family Medicine
DX: M17.9 Osteoarthritis of knee, unspecified (principal); Z12.5 Encounter for screening for malignant neoplasm of prostate; E78.5 Hyperlipidemia, unspecified; R73.09 Other abnormal glucose; Z12.12 Encounter for screening for malignant neoplasm of rectum; J20.9 Acute bronchitis, unspecified
CPT/HCPCS: 36415; 73562; 80053; 80061; 83036; 83525; 83735; 84153; 84436; 84443; 84481; 84550; 85025

== ENCOUNTER 2024-02-18 18:25 | Inpatient (IN) | payer MEDICARE, MEDICAID, SELFPAY ==
[2024-02-18] VITALS (50 sets, daily range): BP systolic 72–107; BP diastolic 42–79; PULSE 69–118; TEMP 36.3–36.8; O2SAT 84–99; BMI 34.4; BMI 47.1
--- NOTE | 2024-02-18 18:47 | CT_ITS ---
[address] [address] Patient Name: EVELIN CAMACHO MRN: [id number] date: 1955 Sex: M Assigned Patient Location: ED.MAIN Current Patient Location: Accession/Order Number: [id number] Exam Date: 02/18/2024 20:17 Report Date: 02/18/2024 21:08 At the request of: ABEBA BUCHANAN Procedure: CT cervical spine wo con EXAM: CT cervical spine wo con, CT head/brain wo con CLINICAL INDICATION: Fall COMPARISON: None TECHNIQUE: Unenhanced computerized tomography of the head was performed. Automated dose reduction technique was employed. Multiple axial slices of the cervical spine were obtained without contrast and with coronal and sagittal reformatted images. FINDINGS: The ventricles are normal in size, configuration, and position for age. There is no intra- or extra-axial mass, hemorrhage, or fluid collection. No areas of abnormal mass effect or attenuation are noted. There is mild subcortical, deep, and periventricular white matter low-attenuation, compatible with changes of chronic small vessel ischemic disease. Mild to moderate mucosal thickening in the bilateral maxillary sinuses and moderate to severe mucosal thickening of the bilateral ethmoid sinuses. No depressed calvarial fracture. Straightening of the cervical spine. Vertebral height and alignment is otherwise preserved. No acute fracture or subluxation. Mild multilevel degenerative changes of the cervical spine worst at C6-C7. The atlanto occipital joint is maintained.The odontoid and lateral masses are intact. The prevertebral soft tissues are within normal limits. The adjacent structures appear intact. The visualized soft tissues of the neck are normal. CT/CT cervical spine wo con IMPRESSION: 1. No acute intracranial abnormality noted. 2. No acute fracture or subluxation of the cervical spine. Multilevel degenerative changes of the cervical spine. Electronically authenticated by: GINA RICHEY Date: 02/18/2024 21:08
--- NOTE | 2024-02-18 18:47 | ECG_ITS ---
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
--- NOTE | 2024-02-18 18:47 | CT_ITS ---
[address] [address] Patient Name: EVELIN CAMACHO MRN: [id number] date: 1955 Sex: M Assigned Patient Location: ED.MAIN Current Patient Location: Accession/Order Number: [id number] Exam Date: 02/18/2024 20:17 Report Date: 02/18/2024 21:44 At the request of: ABEBA BUCHANAN Procedure: CT angio chest EXAM: CT angio chest, CT angio abdomen pelvis HISTORY: Syncope, new onset afib COMPARISON: None. TECHNIQUE: Axial CT imaging was performed with and without contrast through the chest, abdomen, and pelvis, utilizing CTA protocol. Multiplanar reformats were performed. Dose reduction techniques were achieved by using automated exposure control and/or adjustment of mA and/or kV according to patient size and/or use of iterative reconstruction technique. CHEST FINDINGS: Lungs: No consolidation, pneumothorax, or effusion. Airways: Normal. Mediastinum: No adenopathy. Aorta: No aneurysm. Cardiac: Normal size. No pericardial effusion. Pulmonary vasculature: Normal morphology. Bones: No acute bony abnormality. Axilla: No adenopathy. Thyroid gland: No abnormality demonstrated on provided imaging. Soft tissues: Unremarkable. Additional findings: No acute finding. ABDOMEN AND PELVIS FINDINGS: GI upper: Small hiatal hernia. Liver: Normal size and contour. Gallbladder: Cholecystectomy. Biliary system: No intra or extrahepatic biliary ductal dilatation. Spleen: Normal size. Pancreas: Unremarkable. Adrenal glands: Normal adrenal glands. Kidneys/ureters: Normal contours. No hydronephrosis. No nephrolithiasis or ureterolithiasis. Lymph Nodes: No lymphadenopathy. Small bowel: No wall thickening or dilatation. Colon: No wall thickening or dilatation. Appendix: No findings of appendicitis. Peritoneal cavity: No free fluid or pneumoperitoneum. Lower : Unremarkable. Bones: No acute bony abnormality. Soft tissues: No acute finding. Additional findings: None. VASCULAR FINDINGS: CTA CHEST: Pulmonary vasculature: Normal morphology. Coronary arteries: No variant anatomy is demonstrated. No significant atherosclerotic disease. Aorta: No aneurysm, occlusion, or dissection. No significant atherosclerotic disease. Atherosclerotic: No significant atherosclerotic disease. Aortic branches: Normal three-vessel configuration.Right subclavian: Widely patent where visualized. Right common carotid: Widely patent where visualized. Left common carotid: Widely patent where visualized. Left subclavian: Widely patent where visualized. CTA ABDOMEN AND PELVIS: Aorta: No aneurysm, dissection, or occlusion. No significant atherosclerotic disease. Right renal artery: Widely patent. Left renal artery: Widely patent. Celiac artery: Widely patent. Superior mesenteric artery: Widely patent. Inferior mesenteric artery: Widely patent. Right: Common iliac artery: Widely patent. External iliac artery: Widely patent. Common femoral artery: Widely patent. Internal iliac artery: Widely patent. Left: Common iliac artery: Widely patent. External iliac artery: Widely patent. Common femoral artery: Widely patent. Internal iliac artery: Widely patent. CT/CT angio chest IMPRESSION: 1. No evidence of dissection, aneurysm, or occlusion. 2. Small hiatal hernia. No acute abnormality. Electronically authenticated by: MATIAS ESTEBAN Date: 02/18/2024 21:44
--- NOTE | 2024-02-18 18:47 | CT_ITS ---
[address] [address] Patient Name: EVELIN CAMACHO MRN: [id number] date: 1955 Sex: M Assigned Patient Location: ER Current Patient Location: Accession/Order Number: [id number] Exam Date: 02/18/2024 20:17 Report Date: 02/18/2024 21:44 At the request of: ABEBA BUCHANAN Procedure: CT angio abdomen pelvis EXAM: CT angio chest, CT angio abdomen pelvis HISTORY: Syncope, new onset afib COMPARISON: None. TECHNIQUE: Axial CT imaging was performed with and without contrast through the chest, abdomen, and pelvis, utilizing CTA protocol. Multiplanar reformats were performed. Dose reduction techniques were achieved by using automated exposure control and/or adjustment of mA and/or kV according to patient size and/or use of iterative reconstruction technique. CHEST FINDINGS: Lungs: No consolidation, pneumothorax, or effusion. Airways: Normal. Mediastinum: No adenopathy. Aorta: No aneurysm. Cardiac: Normal size. No pericardial effusion. Pulmonary vasculature: Normal morphology. Bones: No acute bony abnormality. Axilla: No adenopathy. Thyroid gland: No abnormality demonstrated on provided imaging. Soft tissues: Unremarkable. Additional findings: No acute finding. ABDOMEN AND PELVIS FINDINGS: GI upper: Small hiatal hernia. Liver: Normal size and contour. Gallbladder: Cholecystectomy. Biliary system: No intra or extrahepatic biliary ductal dilatation. Spleen: Normal size. Pancreas: Unremarkable. Adrenal glands: Normal adrenal glands. Kidneys/ureters: Normal contours. No hydronephrosis. No nephrolithiasis or ureterolithiasis. Lymph Nodes: No lymphadenopathy. Small bowel: No wall thickening or dilatation. Colon: No wall thickening or dilatation. Appendix: No findings of appendicitis. Peritoneal cavity: No free fluid or pneumoperitoneum. Lower : Unremarkable. Bones: No acute bony abnormality. Soft tissues: No acute finding. Additional findings: None. VASCULAR FINDINGS: CTA CHEST: Pulmonary vasculature: Normal morphology. Coronary arteries: No variant anatomy is demonstrated. No significant atherosclerotic disease. Aorta: No aneurysm, occlusion, or dissection. No significant atherosclerotic disease. Atherosclerotic: No significant atherosclerotic disease. Aortic branches: Normal three-vessel configuration.Right subclavian: Widely patent where visualized. Right common carotid: Widely patent where visualized. Left common carotid: Widely patent where visualized. Left subclavian: Widely patent where visualized. CTA ABDOMEN AND PELVIS: Aorta: No aneurysm, dissection, or occlusion. No significant atherosclerotic disease. Right renal artery: Widely patent. Left renal artery: Widely patent. Celiac artery: Widely patent. Superior mesenteric artery: Widely patent. Inferior mesenteric artery: Widely patent. Right: Common iliac artery: Widely patent. External iliac artery: Widely patent. Common femoral artery: Widely patent. Internal iliac artery: Widely patent. Left: Common iliac artery: Widely patent. External iliac artery: Widely patent. Common femoral artery: Widely patent. Internal iliac artery: Widely patent. CT/CT angio abdomen pelvis IMPRESSION: 1. No evidence of dissection, aneurysm, or occlusion. 2. Small hiatal hernia. No acute abnormality. Electronically authenticated by: MATIAS ESTEBAN Date: 02/18/2024 21:44
--- NOTE | 2024-02-18 18:47 | CT_ITS ---
[address] [address] Patient Name: EVELIN CAMACHO MRN: [id number] date: 1955 Sex: M Assigned Patient Location: ED.MAIN Current Patient Location: Accession/Order Number: [id number] Exam Date: 02/18/2024 20:17 Report Date: 02/18/2024 21:08 At the request of: ABEBA BUCHANAN Procedure: CT head/brain wo con EXAM: CT cervical spine wo con, CT head/brain wo con CLINICAL INDICATION: Fall COMPARISON: None TECHNIQUE: Unenhanced computerized tomography of the head was performed. Automated dose reduction technique was employed. Multiple axial slices of the cervical spine were obtained without contrast and with coronal and sagittal reformatted images. FINDINGS: The ventricles are normal in size, configuration, and position for age. There is no intra- or extra-axial mass, hemorrhage, or fluid collection. No areas of abnormal mass effect or attenuation are noted. There is mild subcortical, deep, and periventricular white matter low-attenuation, compatible with changes of chronic small vessel ischemic disease. Mild to moderate mucosal thickening in the bilateral maxillary sinuses and moderate to severe mucosal thickening of the bilateral ethmoid sinuses. No depressed calvarial fracture. Straightening of the cervical spine. Vertebral height and alignment is otherwise preserved. No acute fracture or subluxation. Mild multilevel degenerative changes of the cervical spine worst at C6-C7. The atlanto occipital joint is maintained.The odontoid and lateral masses are intact. The prevertebral soft tissues are within normal limits. The adjacent structures appear intact. The visualized soft tissues of the neck are normal. CT/CT head/brain wo con IMPRESSION: 1. No acute intracranial abnormality noted. 2. No acute fracture or subluxation of the cervical spine. Multilevel degenerative changes of the cervical spine. Electronically authenticated by: GINA RICHEY Date: 02/18/2024 21:08
--- NOTE | 2024-02-18 18:50 | ED.GENADUL1 ---
HPI HPI - General Adult General Chief complaint: Fall Stated complaint: Fall Time Seen by Provider: 02/18/24 18:40 Source: patient Mode of arrival: ambulance Limitations: no limitations History of Present Illness HPI narrative: Is a 68-year-old male who presents to the emergency department for the evaluation of a fall, presumed syncopal episode and head injury with loss of consciousness. Patient states he was having difficulty getting up out of his walker at his assisted living residence. He states that he felt dizzy. He admits to having episodes of dizziness in the past which is why he typically uses a walker. He states sometimes his medications make him dizzy. He states on standing he was dizzy and then woke up on the floor. He denies any pain at this time although he has a history of chronic back pain that is not worse or different today. EMS noted that the patient is hypotensive although awake and alert and oriented. Patient denies chest pain or shortness of breath, although he states sometimes when he exerts himself he does feel winded. For the last several days, he states he has had flulike symptoms of gagging. He does have occasional left-sided abdominal pain but states he has IBS. He has not had any diarrhea or urinary symptoms. He has had coughing with sputum production. No hemoptysis. Related Data Home Medications ?Medication ?Instructions ?Recorded ?Confirmed atorvastatin 40 mg tablet 40 mg PO BEDTIME 07/16/23 07/16/23 esomeprazole magnesium 40 mg 40 mg PO Q24H 07/16/23 07/16/23 capsule,delayed release gabapentin 100 mg capsule 100 mg PO BID 07/16/23 07/16/23 hydroxyzine HCl 25 mg tablet 25 mg PO QID PRN nausea and 07/16/23 07/16/23 vomiting insulin glargine 100 unit/mL (3 40 unit subcut DAILY 07/16/23 07/16/23 mL) subcutaneous pen (Lantus Solostar U-100 Insulin) isosorbide mononitrate 30 mg 30 mg PO DAILY 07/16/23 07/16/23 tablet,extended release 24 hr levothyroxine 200 mcg tablet 200 mcg PO DAILY 07/16/23 07/16/23 liothyronine 5 mcg tablet 5 mcg PO DAILY 07/16/23 07/16/23 lisinopril 40 mg tablet 40 mg PO DAILY 07/16/23 07/16/23 oxycodone-acetaminophen 5 mg-325 1 tab PO QID PRN pain 07/16/23 07/16/23 mg tablet ropinirole 0.5 mg tablet 0.5 mg PO BEDTIME 07/16/23 07/16/23 sertraline 100 mg tablet 100 mg PO DAILY 07/16/23 07/16/23 Previous Rx's ?Medication ?Instructions ?Recorded amoxicillin 500 mg-potassium 1 tab PO Q12H 7 days #14 tabs 07/20/23 clavulanate 125 mg tablet (Augmentin) azithromycin 250 mg tablet 250 mg PO DAILY 4 days #4 tabs 07/20/23 (Zithromax) benzonatate 100 mg capsule 200 mg (2 x 100 mg) PO Q8H 5 days 07/20/23 #30 caps moxifloxacin 0.5 % eye drops 1 drp ophthalmic (eye) TID 7 days 07/20/23 #3 mL promethazine-DM 6.25 mg-15 mg/5 mL 5 ml PO Q8H PRN cough 3 days #118 07/20/23 oral syrup mL Allergies Allergy/AdvReac Type Severity Reaction Status Date / Time metformin AdvReac Severe Flatulence Verified 09/10/23 20:34 prochlorperazine AdvReac Severe Verified 09/10/23 20:34 [From Compazine] Opioid HPI Opioid Management Most Recent Opioid Data: Last Pain Scale 0 07/20/23 10:20 Review of Systems ROS Constitutional Denies: fever or chills Ears, nose, mouth, and throat Denies: throat pain or nasal congestion Cardiovascular Denies: chest pain Respiratory Reports: cough and change in phlegm color; Denies: shortness of breath Gastrointestinal Reports: abdominal pain and nausea; Denies: vomiting or diarrhea Genitourinary Denies: painful urination Musculoskeletal Reports: back pain; Denies: neck pain Integumentary/Breast Denies: rash Neurological Denies: headache Hematologic/Lymphatic Denies: easy bruising or easy bleeding [facility] Medical History (Updated 02/18/24 @ 21:50 by JOSE JUAN Horne) Neuropathy ?G62.9 - Polyneuropathy, unspecified (ICD-10) GERD (gastroesophageal reflux disease) ?K21.9 - Gastro-esophageal reflux disease without esophagitis (ICD-10) UTI (urinary tract infection) ?N39.0 - Urinary tract infection, site not specified (ICD-10) Sepsis ?A41.9 - Sepsis, unspecified organism (ICD-10) Fibromyalgia ?M79.7 - Fibromyalgia (ICD-10) Hyperlipidemia ?E78.5 - Hyperlipidemia, unspecified (ICD-10) Hypothyroid ?E03.9 - Hypothyroidism, unspecified (ICD-10) Depression ?F32.A - Depression, unspecified (ICD-10) Anxiety ?F41.9 - Anxiety disorder, unspecified (ICD-10) Hypertension ?I10 - Essential (primary) hypertension (ICD-10) Diabetes ?E11.9 - Type 2 diabetes mellitus without complications (ICD-10) Surgical History (Updated 07/16/23 @ 16:09 by María Elena Neal) H/O right heart catheterization ?Z98.890 - Other specified postprocedural states (ICD-10) History of lithotripsy ?Z98.890 - Other specified postprocedural states (ICD-10) H/O colonoscopy ?Z98.890 - Other specified postprocedural states (ICD-10) Family History (Updated 07/16/23 @ 16:10 by María Elena Neal) Mother Family history of cancer Social History Within the past year, how often did you have a drink containing alcohol: never Within the past year, how many standard drinks containing alcohol did you have on a typical day: 1 or 2 Within the past year, how often did you have six or more drinks on one occasion: never Total score: 0 Score interpretation: A score less than 4 is consistent with normal alcohol consumption. Smoking status: Never smoker Non-prescribed substance use: denies use Previous occupational history: disability Highest level of school completed/degree received: high school graduate Are you now , , , , never or living with a partner: In a typical week, how many times do you talk on the telephone with family, friends, or neighbors: twice per week How often do you get together with friends or relatives: twice per week How often do you attend oriental orthodox or jehovah's witness services: 4 or more times per year Do you belong to any clubs or organizations such as oriental orthodox groups unions, [email or web address] or athletic groups, or school groups: no Total score: 2 Score interpretation: A score of greater than or equal to 2 indicates the lowest level of social isolation. Little interest or pleasure in doing things: not at all Feeling down, depressed, or hopeless: several days Feel stressed/tense/nervous/anxious/difficulty sleeping: not at all Gender Identity: male Exam Narrative Exam Narrative: Gen.: Awake, alert, in no distress Head: Normocephalic, atraumatic ENT: Moist mucous membranes Respiratory: No respiratory distress, lungs clear bilaterally Cardio: Irregular, normal rate Extremities: Moves extremities equally, no injuries noted Psych: Normal mood and affect Neuro: No focal neuro deficit Skin: Warm, dry, intact Constitutional Vital Signs, click to edit/add: Last Vital Signs Temp 98.3 F 02/18/24 18:29 Pulse 77 02/18/24 20:01 Resp 20 02/18/24 20:01 BP 95/52 02/18/24 20:01 Pulse Ox 96 02/18/24 20:01 O2 Del Method Room Air 02/18/24 18:29 Course Vital Signs Vital signs: Vital Signs Blood Pressure 94/61 02/18/24 18:28 Temperature 98.3 F 02/18/24 18:29 Pulse Rate 77 02/18/24 20:01 Respiratory Rate 20 02/18/24 20:01 Blood Pressure 95/52 02/18/24 20:01 Pulse Oximetry 96 02/18/24 20:01 Oxygen Delivery Method Room Air 02/18/24 18:29 Medical Decision Making MDM Narrative Medical decision making narrative: Upon arrival to the emergency department, patient was noted to be hypotensive and tachycardic, he was given a fluid bolus for hypotension. Patient with 2 large-bore IVs at this time. He was noted to be in atrial fibrillation, borderline rapid ventricular response. Due to hypotension we will avoid treating with Cardizem or blood pressure medications at this time. Sepsis workup was initiated with trauma workup for the syncopal episode and fall. Patient was given 1500 mL IV fluids with improvement of blood pressure to 95/52. He continues to remain awake and alert. He converted himself back to normal sinus rhythm in the emergency department after the fluid bolus was initiated. He continues to have no complaints of chest pain or shortness of breath in the ER. Lab studies show elevated BNP, suspected to be secondary to new onset A-fib. CT of the head and CT of the cervical spine are unremarkable. Patient was also sent for CT angio of the chest/abdomen/pelvis to rule out aortic dissection or pulmonary embolism or other acute cardiopulmonary changes/abnormalities in the abdomen which may be contributing to his syncopal episode and hypotension. Patient found to have COVID, admitted for observation of new onset A-fib although he has converted to normal sinus rhythm at this time. He was also found to be COVID-positive. Repeat lactic acid and troponin are pending at this time. Patient will be admitted to ICU to hospitalist service. Critical care time 35-minute SUPERVISED APC VISIT, PHYSICIAN ATTESTATION: Based on the medical record the care appears appropriate. ? Medical Records Medical records reviewed: Yes I reviewed the patient's medical records Lab Data Lab results reviewed: Yes I reviewed the patient's lab results Labs: Lab Results 02/18/24 02/18/24 Range/Units 18:54 21:12 WBC 6.2 (4.0-11.0) 10^3/uL RBC 4.37 L (4.70-6.10) 10^6/uL Hgb 12.3 L (14.0-18.0) g/dL Hct 38.9 L (42.0-54.0) % MCV 89.0 (80.0-94.0) fL MCH 28.1 (25.9-34.0) pg MCHC 31.6 (29.9-35.2) g/dL RDW 15.9 H (11.0-15.0) % Plt Count 154 (150-450) 10^3/uL MPV 10.1 (9.5-13.5) fL Neut % (Auto) 63.8 (43.0-75.0) % Lymph % (Auto) 16.1 L (20.5-60.0) % [place] % (Auto) 17.4 H (1.7-12.0) % Eos % (Auto) 1.5 (0.9-7.0) % Baso % (Auto) 1.0 (0.2-2.0) % Neut # (Auto) 3.9 (1.4-6.5) 10^3/uL Lymph # (Auto) 1.0 L (1.2-3.8) 10^3/uL [place] # (Auto) 1.1 H (0.3-0.8) 10^3/uL Eos # (Auto) 0.1 (0.0-0.7) 10^3/uL Baso # (Auto) 0.1 (0.0-0.1) 10^3/uL Abs Immat Gran (auto) 0.01 (0.00-0.03) 10^3/uL Imm/Tot Granulo (auto) 0.2 (0.0-0.5) % PT 10.9 (9.0-11.6) sec INR 1.03 VBG pH 7.478 H (7.330-7.430) VBG pCO2 27.7 L (40.0-52.0) mmHg Sodium 134 L (136-145) mmol/L Potassium 3.6 (3.5-5.1) mmol/L Chloride 101 (98-107) mmol/L Carbon Dioxide 25.5 (21.0-32.0) mmol/L Anion Gap 11.1 BUN 21.0 H (7.0-18.0) mg/dL Creatinine 2.07 H (0.70-1.30) mg/dL Est GFR ( Amer) 39 L (>=60) Est GFR (Non-Af Amer) 32 L (>=60) BUN/Creatinine Ratio 10.1 Glucose 140 H (74-106) mg/dL Lactate 2.8 H* (0.4-2.0) mmol/L Calcium 8.5 (8.5-10.1) mg/dL Total Bilirubin 0.7 (0.2-1.0) mg/dL AST 43 H (15-37) U/L ALT 22 (16-63) U/L Alkaline Phosphatase 135 H (46-116) U/L Troponin I High Sens 36.3 (4.0-76.1) pg/mL NT-Pro-B Natriuret Pep 35561.0 H* (<=900.0) pg/mL Total Protein 7.7 (6.4-8.2) g/dL Albumin 2.6 L (3.4-5.0) g/dL Globulin 5.1 g/dL Albumin/Globulin Ratio 0.5 Lipase 44.0 (16.0-77.0) U/L Procalcitonin 0.12 (0.00-0.50) ng/mL TSH 2.018 (0.358-3.740) uIU/mL SARS-CoV-2 Ag (CV2AG) Positive A (NEGATIVE) Imaging Data CT scan - head: Attestation: I have reviewed the pertinent imaging results. Radiologist's impression: ITS Impressions Cervical Spine CT 02/18/24 18:47 IMPRESSION: 1. No acute intracranial abnormality noted. 2. No acute fracture or subluxation of the cervical spine. Multilevel degenerative changes of the cervical spine. Electronically authenticated by: GINA [employer] Date: 02/18/2024 21:[address] 02/18/24 18:47 IMPRESSION: 1. No acute intracranial abnormality noted. 2. No acute fracture or subluxation of the cervical spine. Multilevel degenerative changes of the cervical spine. Electronically authenticated by: [facility] Date: 02/18/2024 21:08 CT scan - chest: Radiologist's impression: ITS Impressions Abdomen/Pelvis CTA 02/18/24 18:47 IMPRESSION: 1. No evidence of dissection, aneurysm, or occlusion. 2. Small hiatal hernia. No acute abnormality. Electronically authenticated by: MATIAS [employer] Date: 02/18/2024 21:[address] 02/18/24 18:47 IMPRESSION: 1. No acute intracranial abnormality noted. 2. No acute fracture or subluxation of the cervical spine. Multilevel degenerative changes of the cervical spine. Electronically authenticated by: [facility] Date: 02/18/2024 21:08 Chest CTA 02/18/24 18:47 IMPRESSION: 1. No evidence of dissection, aneurysm, or occlusion. 2. Small hiatal hernia. No acute abnormality. Electronically authenticated by: [place] Date: 02/18/2024 21:[address] 02/18/24 18:47 IMPRESSION: 1. No acute intracranial abnormality noted. 2. No acute fracture or subluxation of the cervical spine. Multilevel degenerative changes of the cervical spine. Electronically authenticated by: [facility] Date: 02/18/2024 21:08 ECG Data Attestation: I personally reviewed and interpreted this ECG as follows: (Atrial flutter with rapid ventricular response no acute ST elevation, no ectopy. EKG reviewed by attending physician) Critical Care Time Critical Care Time Critical Care Time: Yes Total Critical Care Time: 35 Attestation: Critical care time 35 minutes for treatment of hypotension and cardiac dysrhythmia Discharge Plan Discharge Chief Complaint: Fall Patient Disposition: Admitted As Inpatient Time of Disposition Decision: 21:47 Prescriptions / Home Meds: No Action atorvastatin 40 mg tablet 40 mg PO BEDTIME esomeprazole magnesium 40 mg capsule,delayed release(DR/EC) 40 mg PO Q24H gabapentin 100 mg capsule 100 mg PO BID hydroxyzine HCl 25 mg tablet 25 mg PO QID PRN (Reason: nausea and vomiting) insulin glargine [Lantus Solostar U-100 Insulin] 100 unit/mL (3 mL) insulin pen 40 unit SUBCUT DAILY isosorbide mononitrate 30 mg tablet extended release 24 hr 30 mg PO DAILY levothyroxine 200 mcg tablet 200 mcg PO DAILY liothyronine 5 mcg tablet 5 mcg PO DAILY lisinopril 40 mg tablet 40 mg PO DAILY sertraline 100 mg tablet 100 mg PO DAILY oxycodone-acetaminophen 5-325 mg tablet 1 tab PO QID PRN (Reason: pain) Rx Instructions: per refill hx: last filled 06/18/23 for QTY 60 for 15 days ropinirole 0.5 mg tablet 0.5 mg PO BEDTIME benzonatate 100 mg Capsule 200 mg PO Q8H 5 Days Qty: 30 0RF moxifloxacin 0.5 % Drops 1 drp ophthalmic (eye) TID 7 Days Qty: 3 0RF azithromycin [Zithromax] 250 mg tablet 250 mg PO DAILY 4 Days Qty: 4 0RF promethazine-DM 6.25-15 mg/5 mL syrup 5 ml PO Q8H PRN (Reason: cough) 3 Days Qty: 118 0RF amoxicillin-pot clavulanate [Augmentin] 500-125 mg tablet 1 tab PO Q12H 7 Days Qty: 14 0RF Print Language: Kyrgyz Referrals: KATHIA LAZAR [Primary Care Provider] - 1 week
[2024-02-18] MEDS: 0.9 % SODIUM CHLORIDE 1,000 ML 999 ML IV (18:53)
[2024-02-18 19:10] LABS: Basophils Absolute Auto 0.1 10^3/uL (0.0-0.1); Eosinophils Absolute Auto 0.1 10^3/uL (0.0-0.7); Eosinophils Percent Auto 1.5 % (0.9-7.0); Hematocrit 38.9 % (42.0-54.0); Hemoglobin 12.3 g/dL (14.0-18.0); Immature Granulocytes Abs Auto 0.01 10^3/uL (0.00-0.03); Immature Granulocytes Pct Auto 0.2 % (0.0-0.5); Lymphocytes Percent Auto 16.1 % (20.5-60.0); Mean Corpuscular HGB Conc 31.6 g/dL (29.9-35.2); Mean Corpuscular Hemoglobin 28.1 pg (25.9-34.0); Mean Platelet Volume 10.1 fL (9.5-13.5); Monocytes Absolute Auto 1.1 10^3/uL (0.3-0.8); Monocytes Percent Auto 17.4 % (1.7-12.0); Neutrophils Absolute Auto 3.9 10^3/uL (1.4-6.5); Neutrophils Percent Auto 63.8 % (43.0-75.0); Platelet Count 154 10^3/uL (150-450); Red Blood Count 4.37 10^6/uL (4.70-6.10); Red Cell Distribution Width 15.9 % (11.0-15.0); White Blood Count 6.2 10^3/uL (4.0-11.0)
[2024-02-18 19:12] LABS: PCO2 VBG 27.7 mmHg (40.0-52.0); pH VBG 7.478 (7.330-7.430)
--- NOTE | 2024-02-18 19:12 | ECG_ITS ---
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
[2024-02-18 19:36] LABS: INR 1.03; Prothrombin Time 10.9 sec (9.0-11.6)
[2024-02-18 19:44] LABS: Alanine Aminotransferase 22 U/L (16-63); Albumin Globulin Ratio 0.5; Albumin Level 2.6 g/dL (3.4-5.0); Alkaline Phosphatase 135 U/L (46-116); Anion Gap 11.1; Aspartate Amino Transferase 43 U/L (15-37); BUN Creatinine Ratio 10.1; Bilirubin Total 0.7 mg/dL (0.2-1.0); Calcium 8.5 mg/dL (8.5-10.1); Carbon Dioxide 25.5 mmol/L (21.0-32.0); Chloride 101 mmol/L (98-107); Estimated GFR (African America 39 (>=60); Estimated GFR (Non-African Ame 32 (>=60); Globulin 5.1 g/dL; Glucose 140 mg/dL (74-106); Potassium 3.6 mmol/L (3.5-5.1); Sodium 134 mmol/L (136-145); Thyroid Stimulating Hormone 2.018 uIU/mL (0.358-3.740); Total Protein 7.7 g/dL (6.4-8.2); Troponin I High Sensitivity 36.3 pg/mL (4.0-76.1)
[2024-02-18 19:46] LABS: PROCALCITONIN 0.12 ng/mL (0.00-0.50)
[2024-02-18 19:48] LABS: Lactate/Lactic Acid 2.8 mmol/L (0.4-2.0)
[2024-02-18 21:40] LABS: SARS-CoV-2 Ag POSITIVE (NEGATIVE)
[2024-02-18 21:41] LABS: Internal Control Within Normal Limits
[2024-02-18 21:48] LABS: Troponin I High Sensitivity 37.7 pg/mL (4.0-76.1)
[2024-02-18 21:53] LABS: Lactate/Lactic Acid 1.7 mmol/L (0.4-2.0)
[2024-02-18] MEDS: ENOXAPARIN SODIUM 100 MG/ML SYRINGE SUBQ (22:40)
[2024-02-18 23:17] LABS: Glucometer 186 mg/dL (74-106)
[2024-02-18] MEDS: FAMOTIDINE/PF 20 MG/2 ML VIAL IV (23:47)
[2024-02-18] MEDS: ROPINIROLE HCL 0.25 MG TABLET 0.5 MG PO (23:48)
[2024-02-18] MEDS: ACETAMINOPHEN 500 MG TABLET 1000 MG PO (23:48)
[2024-02-18] MEDS: BENZONATATE 100 MG CAPSULE 200 MG PO (23:49)
[2024-02-18] MEDS: 0.9 % SODIUM CHLORIDE 1,000 ML 75 ML IV (23:49)
[2024-02-18] MEDS: ATORVASTATIN CALCIUM 40 MG TABLET PO (23:49)
[2024-02-18] MEDS: HYDROXYZINE HCL 25 MG TABLET PO (23:49)
[2024-02-19] VITALS (108 sets, daily range): BP systolic 98–155; BP diastolic 70–97; PULSE 60–104; TEMP 35.9–36.7; O2SAT 87–99
[2024-02-19] MEDS: DEXAMETHASONE SOD PHOS 20 MG/5 ML VIAL 6 MG IV ×2 (00:03→23:12)
[2024-02-19] MEDS: LEVOTHYROXINE SODIUM 100 MCG TABLET 200 MCG PO (05:55)
[2024-02-19] MEDS: LIOTHYRONINE SODIUM 5 MCG TABLET PO (05:55)
[2024-02-19] MEDS: BENZONATATE 100 MG CAPSULE 200 MG PO ×3 (05:58→21:45)
[2024-02-19 06:40] LABS: Hematocrit 35.7 % (42.0-54.0); Hemoglobin 11.5 g/dL (14.0-18.0); Mean Corpuscular HGB Conc 32.2 g/dL (29.9-35.2); Mean Corpuscular Hemoglobin 28.5 pg (25.9-34.0); Mean Corpuscular Volume 88.4 fL (80.0-94.0); Mean Platelet Volume 10.4 fL (9.5-13.5); Platelet Count 129 10^3/uL (150-450); Red Blood Count 4.04 10^6/uL (4.70-6.10); Red Cell Distribution Width 16.1 % (11.0-15.0); White Blood Count 4.1 10^3/uL (4.0-11.0)
--- NOTE | 2024-02-19 06:45 | CA_ITS ---
Patient Name: EVELIN CAMACHO MR#: [id number] : 1955 Exam Date: 02/19/2024 Ordering Doctor: DR DANIS ISBELL . ECHOCARDIOGRAM REPORT PROCEDURE: CA ECHO LIMITED INDICATIONS: Dyspnea, New onset Afib, Hypotension, Covid positive COMPARISON: None. DESCRIPTION: Limited ECHOCARDIOGRAM Real-time transthoracic echocardiography with 2D and M-mode performed. QUALITY: Technical quality was limited due to patient condition. Height: 70inches, weight: 328lbs. LEFT VENTRICLE: Normal chamber size. Thickened septal wall. Moderate concentric left ventricular hypertrophy. Normal systolic function. LV EF: Visual estimation of left ventricular wall function appears to be 55-60%. DIASTOLIC: ATRIAL SEPTUM: LEFT ATRIUM: Normal chamber size. RIGHT ATRIUM: RIGHT VENTRICLE: Normal chamber size. Normal right ventricular systolic function. TRICUSPID VALVE: Not well visualized. MITRAL VALVE: Normal mobility and thickness. Mitral annular calcification. AORTIC VALVE: Normal trileaflet appearance. Normal leaflet mobility. AORTIC ROOT: Normal diameter and appearance. PULMONIC VALVE: Not well visualized. PERICARDIUM: Trace pericardial effusion. IVC: Collapses with inspirations. PLEURA: CONCLUSION: 1. Normal ventricular size and systolic function. LVEF is 55 to 60%. 2. Trace pericardial effusion. 3. Limited study performed with no Doppler interrogation as requested. 4. The patient appears to be in sinus rhythm during the examination. Adult Echocardiography Procedure Report Left Ventricle LVEDD (3.7 - 5.6 cm): 4.31 cm LVESD (2.2 - 4.0 cm): 3.21 cm LVIVS thickness (0.6 - 1.2 cm): 1.73 cm LVPW thickness (0.5 - 1.0 cm): 1.40 cm LVOT Diameter 1.95 cm Left Atrium LA Volume Index (2D A2C): 38.31 ml/m2 Left Atrium Systolic Dimension: 3.68 cm Mitral Valve Right Ventricle RV Internal Diastolic Dimension: 3.67 cm Aorta AO Root Diam: 3.01 cm Aortic Valve Tricuspid Valve Pulmonic Valve Right Atrium Dictated by: Dusty Ni M.D. on 02/19/2024 at 13:55 Approved by: Dusty Ni M.D. on 02/19/2024 at 13:58
[2024-02-19 07:18] LABS: Partial Thromboplastin Time 35.1 sec (22.3-36.2); Prothrombin Time 10.6 sec (9.0-11.6)
[2024-02-19 08:03] LABS: Lymphocytes Absolute Manual 0.16 10^3/uL (1.20-3.80); Monocytes Absolute Manual 0.24 10^3/uL (0.30-0.80); Segmented Neut Absolute Manual 3.69 10^3/uL (1.4-6.5)
--- NOTE | 2024-02-19 08:22 | ECG_ITS ---
[facility] Test Date: 2024-02-19 Pat Name: EVELIN CAMACHO Department: Room: Formerly named [facility] Gender: Male Bee Robber: : 1955 Requested By: DANIS ISBELL Order Number: [id number] Reading MD: DANIS ISBELL Measurements Intervals [place] Rate: 92 P: -[id number] [place]: -[id number] QRS: 63 QRSD: 84 T: 52 QT: 384 QTc: 434 Interpretive Statements 1210 Atrial fibrillation 9140 abnormal rhythm ECG Compared to ECG 02/18/2024 19:19:40 Sinus rhythm no longer present Electronically Signed On 02-20-2024 6:48:16 EDT by DANIS ISBELL
--- NOTE | 2024-02-19 08:27 | P.HP_ITS ---
HPI H&P: HPI History of Present Illness Chief complaint: Fall, COVID, Hypotension, New Onset A-Fib Narrative: Patient is a resident at an assisted living facility, had increasing shortness of breath and status post fall, in ER found to be atrial fibrillation with rapid ventricular response and converted to sinus, significant hypotension with positive lactate, COVID-positive, patient mated to the ICU with severe sepsis. Patient given aggressive fluid resuscitation in the ER based on the positive lactate and elevated BUN and creatinine, patient also potentially heart failure with elevated BNP which he has not had a history of in the past. Elevated BNP could be related to the COVID as well. High-sensitivity troponins were negative. I saw patient up in the intensive care unit he had his oxygen on his resting comfortably, at that time he did appear to be in atrial fibrillation again rate fairly well-controlled in the 110s. Some mild conversational dyspnea, significant cough Opioid HPI Opioid Management Most Recent Pain and Opioid Data: Last Pain Scale 4 02/19/24 04:00 Last Pain Assessment 02/19/24 07:00 Last MAR Pain Assessment 02/19/24 01:00 Last ORT Total Score 1 02/18/24 22:54 Last ORT Risk Category Low Risk 02/18/24 22:54 Review of Systems ROS Status of ROS 10 or more systems reviewed and unremark able except as noted in history and below PFSH PFS Medical History Neuropathy ?G62.9 - Polyneuropathy, unspecified (ICD-10) GERD (gastroesophageal reflux disease) ?K21.9 - Gastro-esophageal reflux disease without esophagitis (ICD-10) UTI (urinary tract infection) ?N39.0 - Urinary tract infection, site not specified (ICD-10) Sepsis ?A41.9 - Sepsis, unspecified organism (ICD-10) Fibromyalgia ?M79.7 - Fibromyalgia (ICD-10) Hyperlipidemia ?E78.5 - Hyperlipidemia, unspecified (ICD-10) Hypothyroid ?E03.9 - Hypothyroidism, unspecified (ICD-10) Depression ?F32.A - Depression, unspecified (ICD-10) Anxiety ?F41.9 - Anxiety disorder, unspecified (ICD-10) Hypertension ?I10 - Essential (primary) hypertension (ICD-10) Diabetes ?E11.9 - Type 2 diabetes mellitus without complications (ICD-10) Surgical History H/O right heart catheterization ?Z98.890 - Other specified postprocedural states (ICD-10) History of lithotripsy ?Z98.890 - Other specified postprocedural states (ICD-10) H/O colonoscopy ?Z98.890 - Other specified postprocedural states (ICD-10) Family History Mother Family history of cancer Social History Within the past year, how often did you have a drink containing alcohol: never Within the past year, how many standard drinks containing alcohol did you have on a typical day: 1 or 2 Within the past year, how often did you have six or more drinks on one occasion: never Total score: 0 Score interpretation: A score less than 4 is consistent with normal alcohol consumption. Smoking status: Never smoker Non-prescribed substance use: denies use Previous occupational history: disability Highest level of school completed/degree received: high school graduate Are you now , , , , never or living with a partner: In a typical week, how many times do you talk on the telephone with family, friends, or neighbors: twice per week How often do you get together with friends or relatives: twice per week How often do you attend uatsdin or restorationist services: 4 or more times per year Do you belong to any clubs or organizations such as uatsdin groups unions, fraternal or athletic groups, or school groups: no Total score: 2 Score interpretation: A score of greater than or equal to 2 indicates the lowest level of social isolation. Little interest or pleasure in doing things: not at all Feeling down, depressed, or hopeless: several days Feel stressed/tense/nervous/anxious/difficulty sleeping: not at all Gender Identity: male Meds Home Medications and Allergies Home Medications ?Medication ?Instructions ?Recorded ?Confirmed ?Type atorvastatin 40 mg tablet 40 mg PO BEDTIME 07/16/23 07/16/23 History esomeprazole magnesium 40 mg 40 mg PO Q24H 07/16/23 07/16/23 History capsule,delayed release gabapentin 100 mg capsule 100 mg PO BID 07/16/23 07/16/23 History hydroxyzine HCl 25 mg tablet 25 mg PO QID PRN nausea and 07/16/23 07/16/23 History vomiting insulin glargine 100 unit/mL (3 40 unit subcut DAILY 07/16/23 07/16/23 History mL) subcutaneous pen (Lantus Solostar U-100 Insulin) isosorbide mononitrate 30 mg 30 mg PO DAILY 07/16/23 07/16/23 History tablet,extended release 24 hr levothyroxine 200 mcg tablet 200 mcg PO DAILY 07/16/23 07/16/23 History liothyronine 5 mcg tablet 5 mcg PO DAILY 07/16/23 07/16/23 History lisinopril 40 mg tablet 40 mg PO DAILY 07/16/23 07/16/23 History oxycodone-acetaminophen 5 mg-325 1 tab PO QID PRN pain 07/16/23 07/16/23 History mg tablet ropinirole 0.5 mg tablet 0.5 mg PO BEDTIME 07/16/23 07/16/23 History sertraline 100 mg tablet 100 mg PO DAILY 07/16/23 07/16/23 History amoxicillin 500 mg-potassium 1 tab PO Q12H 7 days #14 tabs 07/20/23 Rx clavulanate 125 mg tablet (Augmentin) azithromycin 250 mg tablet 250 mg PO DAILY 4 days #4 tabs 07/20/23 Rx (Zithromax) benzonatate 100 mg capsule 200 mg (2 x 100 mg) PO Q8H 5 days 07/20/23 Rx #30 caps moxifloxacin 0.5 % eye drops 1 drp ophthalmic (eye) TID 7 days 07/20/23 Rx #3 mL promethazine-DM 6.25 mg-15 mg/5 mL 5 ml PO Q8H PRN cough 3 days #118 07/20/23 Rx oral syrup mL Allergies Allergy/AdvReac Type Severity Reaction Status Date / Time metformin AdvReac Severe Flatulence Verified 09/10/23 20:34 prochlorperazine AdvReac Severe Verified 09/10/23 20:34 [From Compazine] Exam Constitutional Vital Signs, click to edit/add: Last Vital Signs Temp 96.7 F L 02/19/24 06:01 Pulse 96 H 02/19/24 06:10 Resp 15 02/19/24 06:10 BP 104/75 02/19/24 06:01 Pulse Ox 92 L 02/19/24 06:10 O2 Del Method Nasal Cannula 02/18/24 22:54 O2 Flow Rate 3 02/19/24 06:01 Documenting provider has reviewed patient's vital signs: yes Common normals: apparent distress (Mild respiratory distress) Chest Common normals: inspection of chest normal Respiratory Common normals: abnormal respiratory effort (Mild respiratory distress with mild conversational dyspnea) Effort & inspection: tachypneic and respiratory distress (Mild) Auscultation: rhonchi Cardio Common normals: no murmurs Rate: tachycardic Rhythm: abnormal rhythm GI Common normals: Normal to inspection, nondistended, normoactive bowel sounds present, soft to palpation and non-tender Results Labs Labs: Short CBC 02/18/24 02/19/24 Range/Units 18:54 05:54 WBC 6.2 4.1 (4.0-11.0) 10^3/uL Hgb 12.3 L 11.5 L (14.0-18.0) g/dL Hct 38.9 L 35.7 L (42.0-54.0) % Plt Count 154 129 L (150-450) 10^3/uL BMP 02/18/24 18:54 Sodium 134 L Potassium 3.6 Chloride 101 Carbon Dioxide 25.5 BUN 21.0 H Creatinine 2.07 H Glucose 140 H Calcium 8.5 Liver Function 02/18/24 Range/Units 18:54 Total Bilirubin 0.7 (0.2-1.0) mg/dL AST 43 H (15-37) U/L ALT 22 (16-63) U/L Alkaline Phosphatase 135 H (46-116) U/L Albumin 2.6 L (3.4-5.0) g/dL ABG ABG results: 02/18/24 18:54 VBG pH 7.478 H VBG pCO2 27.7 L Assessment and Plan Assessment and Plan (1) Hypotension: (2) COVID-19: (3) New onset a-fib: (4) Pneumonia: Qualifiers: Laterality: right Lung location: lower lobe of lung Pneumonia type: due to unspecified organism Qualified Code(s): J18.9 - Pneumonia, unspecified organism Plan Admission findings: Tachycardia, respiratory distress, significant hypotension with blood pressure 72/42 in the emergency room significant hypoxia with O2 saturation of 84%, positive lactate, elevated BNP, acute renal failure (baseline creatinine of 1.23, admission creatinine of 2.07, that is 168.3% above baseline.), Due to acute COVID, with acute hypoxia, resulting in A-fib with rapid ventricular response and possible acute combined congestive heart failure. Atrial fibrillation with rapid ventricular response -check echocardiogram, significant elevated BNP but may be related to the heart rate as opposed to true heart failure as he has no significant peripheral edema. Heart rate at this morning but will hold off on Cardizem drip based on blood pressure response. Initially held off on Eliquis since he converted back to normal sinus rhythm but since he is back in atrial fibrillation, start low-dose Eliquis Acute COVID with hypoxia-start patient on antibiotics, remdesivir, steroids, aerosol treatments with low-dose Xopenex Elevated BNP-check echocardiogram, no history of heart failure. Serial BNP's Iron deficiency anemia-monitor daily Hyponatremia likely secondary to the dehydration causing the acute renal failure as outlined above-serial testing Moderate protein calorie malnutrition based on NIH criteria for albumin-diet management Hiatal hernia-IV Pepcid Depression-continue with home medications History of hypertension-hold off on blood pressure medications based on hypotension on admission Admission status: Patient with acute hypoxia secondary to acute COVID resulting in a acute renal failure and acute atrial fibrillation with rapid ventricular response with possible acute combined congestive heart failure based on elevated BNP. Medically necessary treatment will span more than 2 midnights. Inpatient status.
[2024-02-19 08:51] LABS: Lactate/Lactic Acid 1.3 mmol/L (0.4-2.0)
[2024-02-19] MEDS: REMDESIVIR 200 MG in 0.9 % SODIUM CHLORIDE 250 ML 250 MG IV (09:14)
[2024-02-19] MEDS: CETIRIZINE HCL 10 MG TABLET 20 MG PO (09:15)
[2024-02-19] MEDS: SERTRALINE HCL 100 MG TABLET PO (09:15)
[2024-02-19] MEDS: GABAPENTIN 100 MG CAPSULE PO ×2 (09:15→21:41)
[2024-02-19] MEDS: INSULIN ASPART 300 UNIT/3 ML PEN SUBQ ×4 (09:16→21:42)
[2024-02-19] MEDS: INSULIN DETEMIR 300 UNIT/3 ML INSULN.PEN 40 UNIT SUBQ (09:16)
[2024-02-19 09:23] LABS: Glucometer 305 mg/dL (74-106)
[2024-02-19 09:50] LABS: Alanine Aminotransferase 24 U/L (16-63); Albumin Globulin Ratio 0.5; Albumin Level 2.4 g/dL (3.4-5.0); Alkaline Phosphatase 134 U/L (46-116); Anion Gap 12.9; Aspartate Amino Transferase 44 U/L (15-37); BUN Creatinine Ratio 12.2; Bilirubin Total 0.5 mg/dL (0.2-1.0); Calcium 8.2 mg/dL (8.5-10.1); Carbon Dioxide 22.1 mmol/L (21.0-32.0); Chloride 103 mmol/L (98-107); Estimated GFR (African America 38 (>=60); Estimated GFR (Non-African Ame 31 (>=60); Globulin 4.9 g/dL; Glucose 267 mg/dL (74-106); Magnesium 1.8 mg/dL (1.8-2.4); Phosphorus 3.4 mg/dL (2.6-4.7); Sodium 134 mmol/L (136-145); Total Protein 7.3 g/dL (6.4-8.2); Troponin I High Sensitivity 50.8 pg/mL (4.0-76.1)
[2024-02-19] MEDS: APIXABAN 5 MG TABLET 2.5 MG PO ×2 (10:30→21:41)
[2024-02-19] MEDS: FAMOTIDINE/PF 20 MG/2 ML VIAL IV ×2 (10:30→21:42)
[2024-02-19] MEDS: AZITHROMYCIN 500 MG in 0.9 % SODIUM CHLORIDE 250 ML 250 MG IV (10:31)
--- NOTE | 2024-02-19 11:26 | SWNOTE1 ---
SW met with pt to discuss dc needs. [facility] [place]. He does use a walker at home. Pt does not wear home oxygen and he is not on it right now. Pt voiced he has some acquaintances at [facility], but he would call his daughter if he needs anything. He stated he is slowly getting his appetite back. He voiced he has been sick for several days and is ready to feel better. Pt voiced he had Covid 2 years ago and had to go to [facility] in [place]. He stated he does not need to go to [facility] again. SW and pt spoke about Home Health. He has had it in past. He stated they would sometimes show up and other times they would come late and he would be at an appointment. Pt voiced he does not feel he needs it this time and is refusing HH services. SW advised pt that for his safety it would be beneficial for at least a nurse and an evaluation from therapy to come in. He again voiced he does not want it. SW to follow as needed. Important Message from Medicare reviewed and discussed with patient. Pt. verbalized understanding and signed the form. Original given to patient and copy placed in patient?s chart.
[2024-02-19 11:40] LABS: Glucometer 350 mg/dL (74-106)
--- NOTE | 2024-02-19 15:37 | PC.NURSE ---
pt aware of transfer to room 216. taken via wheelchair with belongings.
[2024-02-19 16:57] LABS: Glucometer 208 mg/dL (74-106)
[2024-02-19 20:33] LABS: Glucometer 331 mg/dL (74-106)
[2024-02-19] MEDS: ATORVASTATIN CALCIUM 40 MG TABLET PO (21:40)
[2024-02-19] MEDS: ROPINIROLE HCL 0.25 MG TABLET 0.5 MG PO (21:40)
[2024-02-20] VITALS (17 sets, daily range): BP systolic 157–185; BP diastolic 87–108; PULSE 64–90; TEMP 36.1–36.9; O2SAT 93–97
[2024-02-20] MEDS: BENZONATATE 100 MG CAPSULE 200 MG PO ×2 (05:56→16:21)
[2024-02-20] MEDS: LEVOTHYROXINE SODIUM 100 MCG TABLET 200 MCG PO (05:57)
[2024-02-20] MEDS: LIOTHYRONINE SODIUM 5 MCG TABLET PO (05:57)
[2024-02-20 06:19] LABS: Basophils Percent Auto 0.3 % (0.2-2.0); Hematocrit 34.3 % (42.0-54.0); Hemoglobin 11.2 g/dL (14.0-18.0); Immature Granulocytes Abs Auto 0.03 10^3/uL (0.00-0.03); Immature Granulocytes Pct Auto 0.4 % (0.0-0.5); Lymphocytes Absolute Auto 0.7 10^3/uL (1.2-3.8); Lymphocytes Percent Auto 9.1 % (20.5-60.0); Mean Corpuscular HGB Conc 32.7 g/dL (29.9-35.2); Mean Corpuscular Hemoglobin 28.4 pg (25.9-34.0); Mean Corpuscular Volume 86.8 fL (80.0-94.0); Mean Platelet Volume 10.7 fL (9.5-13.5); Monocytes Absolute Auto 0.3 10^3/uL (0.3-0.8); Monocytes Percent Auto 3.9 % (1.7-12.0); Neutrophils Absolute Auto 6.4 10^3/uL (1.4-6.5); Neutrophils Percent Auto 86.3 % (43.0-75.0); Platelet Count 142 10^3/uL (150-450); Red Blood Count 3.95 10^6/uL (4.70-6.10); Red Cell Distribution Width 15.8 % (11.0-15.0); White Blood Count 7.4 10^3/uL (4.0-11.0)
[2024-02-20 06:47] LABS: Alanine Aminotransferase 20 U/L (16-63); Albumin Globulin Ratio 0.5; Albumin Level 2.3 g/dL (3.4-5.0); Alkaline Phosphatase 191 U/L (46-116); Anion Gap 8.3; Aspartate Amino Transferase 32 U/L (15-37); BUN Creatinine Ratio 14.5; Bilirubin Total 0.3 mg/dL (0.2-1.0); Calcium 8.4 mg/dL (8.5-10.1); Chloride 101 mmol/L (98-107); Estimated GFR (African America 51 (>=60); Estimated GFR (Non-African Ame 42 (>=60); Globulin 4.9 g/dL; Glucose 326 mg/dL (74-106); Magnesium 1.5 mg/dL (1.8-2.4); Potassium 4.3 mmol/L (3.5-5.1); Sodium 131 mmol/L (136-145); Total Protein 7.2 g/dL (6.4-8.2)
--- NOTE | 2024-02-20 07:31 | P.PN_ITS ---
Progress Note: Subjective Subjective Interval history: Cough persisting throughout the exam this morning. Still has shortness of breath with ambulating to the bathroom. From a lightheaded standpoint he does feel better. Exam Constitutional Vital Signs, click to edit/add: Last Vital Signs Temp 97 F L 02/20/24 04:00 Pulse 80 02/20/24 06:00 Resp 20 02/20/24 04:00 BP 167/90 H 02/20/24 04:00 Pulse Ox 96 02/20/24 06:00 O2 Del Method Room Air 02/20/24 04:00 O2 Flow Rate 2 02/19/24 14:00 Documenting provider has reviewed patient's vital signs: yes Common normals: apparent distress (Mild respiratory distress) Chest Common normals: inspection of chest normal Respiratory Common normals: abnormal respiratory effort (Mild respiratory distress with mild conversational dyspnea) Effort & inspection: tachypneic and respiratory distress (Mild) Auscultation: rhonchi (Diffuse rhonchi consistent with COVID) Cardio Common normals: no murmurs Rate: tachycardic Rhythm: abnormal rhythm GI Common normals: Normal to inspection, nondistended, normoactive bowel sounds present, soft to palpation and non-tender Progress Note: Objective Labs Labs: Short CBC 02/20/24 Range/Units 05:42 WBC 7.4 (4.0-11.0) 10^3/uL Hgb 11.2 L (14.0-18.0) g/dL Hct 34.3 L (42.0-54.0) % Plt Count 142 L (150-450) 10^3/uL BMP 02/19/24 02/20/24 05:54 05:42 Sodium 134 L 131 L Potassium 4.0 4.3 Chloride 103 101 Carbon Dioxide 22.1 26.0 BUN 26.0 H 24.0 H Creatinine 2.13 H 1.66 H Glucose 267 H 326 H Calcium 8.2 L 8.4 L Liver Function 02/19/24 02/20/24 Range/Units 05:54 05:42 Total Bilirubin 0.5 0.3 (0.2-1.0) mg/dL AST 44 H 32 (15-37) U/L ALT 24 20 (16-63) U/L Alkaline Phosphatase 134 H 191 H (46-116) U/L Albumin 2.4 L 2.3 L (3.4-5.0) g/dL Progress Note: A&P Assessment and Plan (1) Hypotension: (2) COVID-19: (3) New onset a-fib: (4) Pneumonia: Qualifiers: Laterality: right Lung location: lower lobe of lung Pneumonia type: due to unspecified organism Qualified Code(s): J18.9 - Pneumonia, unspecified organism Plan Admission findings: Tachycardia, respiratory distress, significant hypotension with blood pressure 72/42 in the emergency room significant hypoxia with O2 saturation of 84%, positive lactate, elevated BNP, acute renal failure (baseline creatinine of 1.23, admission creatinine of 2.07, that is 168.3% above baseline.), Due to acute COVID, with acute hypoxia, resulting in A-fib with rapid ventricular response and possible acute combined congestive heart failure. Atrial fibrillation with rapid ventricular response -check echocardiogram, echocardiogram still pending, continue with low-dose Eliquis patient high risk for falls. Acute COVID with hypoxia-continue patient on antibiotics, remdesivir, steroids, aerosol treatments with low-dose Xopenex-due to the atrial fibrillation Elevated BNP-check echocardiogram, improved today. Iron deficiency anemia-monitor daily Hyponatremia likely secondary to the dehydration and hyperglycemia now. Worse today. Continue to monitor. Moderate protein calorie malnutrition based on NIH criteria for albumin-diet management Hiatal hernia-IV Pepcid Depression-continue with home medications History of hypertension-blood pressure creeping up, will restart home medications of Imdur and lisinopril Admission status: Patient with acute hypoxia secondary to acute COVID resulting in a acute renal failure and acute atrial fibrillation with rapid ventricular response with possible acute combined congestive heart failure based on elevated BNP. Medically necessary treatment will span more than 2 midnights. Inpatient status.
--- NOTE | 2024-02-20 07:46 | PT.DAILY ---
Physical Therapy Daily Note PT Daily Note/Assess Start: 02/20/24 07:43 Freq: Status: Active Protocol: Document 02/20/24 07:20 ELLIS (Rec: 02/20/24 07:46 ELLIS [id number]) Visit Not Completed Visit Not Completed Visit Not Completed Due to: Pt refusing Other Reason Visit Not Completed Patient declines RX this AM. States has been up to bathroom several times and up all night with cough. Sat up in chair x2 per his report yesterday and will sit up again later this morning. Reports is now getting up with RW without dizziness, and feels like he is doing well with this. PT to check back at later time if available. POC is 3-5x a week for treatments during acute hospital stay with recommendation of HH at [facility] per PT evaluation. Physical Therapy Daily Note/Assessment Time In/Time Out Time In 07:20 Time Out 07:20 GG. Functional Abilities and Goals-Complete for Swing Bed Patients Only [id number]. Self-Care [id number]. Mobility
[2024-02-20 07:57] LABS: Glucometer 371 mg/dL (74-106)
[2024-02-20] MEDS: INSULIN ASPART 300 UNIT/3 ML PEN SUBQ ×4 (07:59→22:16)
[2024-02-20 08:42] LABS: Bilirubin Urine NEGATIVE (NEGATIVE); Blood Urine LARGE (NEGATIVE); Clarity Urine CLEAR (CLEAR); Color Urine LT. YELLOW (YELLOW); Glucose Urine UA >=1000 mg/dL (NEGATIVE); Ketones Urine NEGATIVE (NEGATIVE); Leukocyte Esterase Urine NEGATIVE (NEGATIVE); Nitrite Urine NEGATIVE (NEGATIVE); Protein Urine 30 mg/dL (NEG/TRACE); Specific Gravity Urine 1.015 (1.005-1.025); Urobilinogen Urine 0.2 EU/dL (0.2-1.0)
[2024-02-20] MEDS: REMDESIVIR 100 MG in 0.9 % SODIUM CHLORIDE 100 ML 200 MG IV (08:50)
[2024-02-20 08:52] LABS: Bacteria Urine NONE SEEN #/HPF (NONE SEEN); Mucus Urine NONE SEEN (NONE SEEN); RBC Urine 20-50 #/HPF (0-2); Squamous Epithelial Cell Urine NONE SEEN #/LPF (NONE/RARE); WBC Urine 0-2 #/HPF (NONE SEEN)
[2024-02-20 08:53] LABS: Cast Seen? NONE SEEN #/LPF (NONE SEEN); Crystals Seen? None Seen #/HPF (None Seen)
[2024-02-20] MEDS: LISINOPRIL 20 MG TABLET PO (08:59)
[2024-02-20] MEDS: SERTRALINE HCL 100 MG TABLET PO (08:59)
[2024-02-20] MEDS: GABAPENTIN 100 MG CAPSULE PO ×2 (09:07→22:11)
[2024-02-20] MEDS: APIXABAN 5 MG TABLET 2.5 MG PO ×2 (09:07→22:10)
[2024-02-20] MEDS: CETIRIZINE HCL 10 MG TABLET 20 MG PO (09:08)
[2024-02-20] MEDS: ISOSORBIDE MONONITRATE 30 MG TAB.ER.24H PO (09:08)
[2024-02-20] MEDS: INSULIN DETEMIR 300 UNIT/3 ML INSULN.PEN 40 UNIT SUBQ (09:14)
[2024-02-20] MEDS: FAMOTIDINE/PF 20 MG/2 ML VIAL IV ×2 (09:20→22:11)
[2024-02-20] MEDS: AZITHROMYCIN 500 MG in 0.9 % SODIUM CHLORIDE 250 ML 250 MG IV (10:28)
--- NOTE | 2024-02-20 11:38 | SWNOTE1 ---
SW stopped back in to speak with pt. SW offered Home Health services to come in (PT/OT and skilled nurse) for a short time. At this time pt is refusing. SW expressed the benefits of HH, but pt still refusing at this time. SW to follow as needed. Pt did ask SW to reach out to [facility] in regards to previous bills. SW sent an email to Trish Corrales and Brandy in [employer].
[2024-02-20 12:46] LABS: Glucometer 333 mg/dL (74-106)
[2024-02-20 13:35] LABS: Internal Control Within Normal Limits; Occult Blood Positive
[2024-02-20 14:10] LABS: C. Difficile PCR NEGATIVE (NEGATIVE)
[2024-02-20 16:18] LABS: Glucometer 338 mg/dL (74-106)
[2024-02-20 20:20] LABS: Glucometer 376 mg/dL (74-106)
[2024-02-20] MEDS: ATORVASTATIN CALCIUM 40 MG TABLET PO (22:10)
[2024-02-20] MEDS: ROPINIROLE HCL 0.25 MG TABLET 0.5 MG PO (22:10)
[2024-02-20] MEDS: DEXAMETHASONE SOD PHOS 20 MG/5 ML VIAL 6 MG IV (22:11)
[2024-02-21] VITALS (18 sets, daily range): BP systolic 150–173; BP diastolic 86–96; PULSE 58–180; TEMP 36.3–36.9; O2SAT 94–97
[2024-02-21] MEDS: LEVOTHYROXINE SODIUM 100 MCG TABLET 200 MCG PO (05:30)
[2024-02-21] MEDS: LIOTHYRONINE SODIUM 5 MCG TABLET PO (05:30)
[2024-02-21 05:55] LABS: Basophils Percent Auto 0.1 % (0.2-2.0); Hematocrit 35.2 % (42.0-54.0); Hemoglobin 11.6 g/dL (14.0-18.0); Immature Granulocytes Abs Auto 0.05 10^3/uL (0.00-0.03); Immature Granulocytes Pct Auto 0.6 % (0.0-0.5); Lymphocytes Absolute Auto 0.8 10^3/uL (1.2-3.8); Lymphocytes Percent Auto 9.4 % (20.5-60.0); Mean Corpuscular Hemoglobin 28.2 pg (25.9-34.0); Mean Corpuscular Volume 85.6 fL (80.0-94.0); Mean Platelet Volume 10.7 fL (9.5-13.5); Monocytes Absolute Auto 0.3 10^3/uL (0.3-0.8); Monocytes Percent Auto 3.3 % (1.7-12.0); Neutrophils Percent Auto 86.6 % (43.0-75.0); Platelet Count 162 10^3/uL (150-450); Red Blood Count 4.11 10^6/uL (4.70-6.10); Red Cell Distribution Width 15.6 % (11.0-15.0); White Blood Count 8.1 10^3/uL (4.0-11.0)
[2024-02-21 06:10] LABS: Alanine Aminotransferase 23 U/L (16-63); Albumin Globulin Ratio 0.5; Albumin Level 2.4 g/dL (3.4-5.0); Alkaline Phosphatase 231 U/L (46-116); Anion Gap 10.7; Aspartate Amino Transferase 24 U/L (15-37); BUN Creatinine Ratio 20.5; Bilirubin Total 0.3 mg/dL (0.2-1.0); Calcium 8.4 mg/dL (8.5-10.1); Carbon Dioxide 27.7 mmol/L (21.0-32.0); Chloride 98 mmol/L (98-107); Estimated GFR (African America 59 (>=60); Estimated GFR (Non-African Ame 48 (>=60); Globulin 5.1 g/dL; Glucose 353 mg/dL (74-106); Potassium 4.4 mmol/L (3.5-5.1); Sodium 132 mmol/L (136-145); Total Protein 7.5 g/dL (6.4-8.2)
[2024-02-21 07:55] LABS: Glucometer 389 mg/dL (74-106)
[2024-02-21] MEDS: REMDESIVIR 100 MG in 0.9 % SODIUM CHLORIDE 100 ML 200 MG IV (09:33)
[2024-02-21] MEDS: BENZONATATE 100 MG CAPSULE 200 MG PO ×2 (09:33→17:24)
[2024-02-21] MEDS: APIXABAN 5 MG TABLET 2.5 MG PO ×2 (09:33→21:17)
[2024-02-21] MEDS: LISINOPRIL 20 MG TABLET PO (09:34)
[2024-02-21] MEDS: GABAPENTIN 100 MG CAPSULE PO ×2 (09:34→21:17)
[2024-02-21] MEDS: CETIRIZINE HCL 10 MG TABLET 20 MG PO (09:34)
[2024-02-21] MEDS: ISOSORBIDE MONONITRATE 30 MG TAB.ER.24H PO (09:34)
[2024-02-21] MEDS: SERTRALINE HCL 100 MG TABLET PO (09:34)
[2024-02-21] MEDS: INSULIN DETEMIR 300 UNIT/3 ML INSULN.PEN 40 UNIT SUBQ (09:35)
[2024-02-21] MEDS: FAMOTIDINE/PF 20 MG/2 ML VIAL IV ×2 (10:06→21:17)
--- NOTE | 2024-02-21 10:21 | REH.PTDLY ---
Physical Therapy Daily Note PT Daily Note/Assess Start: 02/20/24 07:43 Freq: Status: Active Protocol: Document 02/21/24 10:14 ELVIRA (Rec: 02/21/24 10:21 ELVIRA [id number]) Physical Therapy Daily Note/Assessment Time In 09:58 Time Out 10:12 Subjective Pt initially says hes tired, back bothering him and doesn't want to do therapy. Able to discuss benefits and pt is agreeable to ambulate, but does not want to do exs. Bed Mobility Ability Independent Chair Transfer Ability Standby Assistance Therapeutic Activity Comments Gait in room with RW SBA/S 100 feet, pt reports feeling good to walk, not feeling too tired. Pt goes to sit down then reports he needs to use restroom. Stood at toilet to urinate for 1 min with no UE support. Ambulated back to bed another 15 feet with RW. Cues as pt tends to carry RW at times, he reports he has a RW at home, but only uses it when he feels weak or really dizzy . Does well with transfers, ind with bed mobility Daily Note Summary Pt does well with gait today with no imbalance noted. Pt states he would rather go home without home health as he wants to be able to return to OP PT which he was going to prior to hospital admission.
[2024-02-21] MEDS: AZITHROMYCIN 500 MG in 0.9 % SODIUM CHLORIDE 250 ML 250 MG IV (10:29)
--- NOTE | 2024-02-21 10:39 | P.PN_ITS ---
Progress Note: Subjective Subjective Interval history: Cough persisting but much improved from previous day. He does state when he gets up to the bathroom which is approximately 15 to 20 foot walk, still has significant dyspnea. Exam Constitutional Vital Signs, click to edit/add: Last Vital Signs Temp 98.0 F 02/21/24 08:58 Pulse 64 02/21/24 10:00 Resp 18 02/21/24 10:03 BP 152/89 H 02/21/24 08:58 Pulse Ox 94 L 02/21/24 08:58 O2 Del Method Room Air 02/21/24 08:58 O2 Flow Rate 2 02/19/24 14:00 Documenting provider has reviewed patient's vital signs: yes Common normals: apparent distress (Mild respiratory distress) Chest Common normals: inspection of chest normal Respiratory Common normals: abnormal respiratory effort (Mild conversational dyspnea overall improved) Effort & inspection: tachypneic (Persisting but improving) and respiratory distress (Mild) Auscultation: rhonchi (Diffuse rhonchi consistent with COVID) Cardio Common normals: no murmurs Rate: tachycardic Rhythm: abnormal rhythm GI Common normals: Normal to inspection, nondistended, normoactive bowel sounds present, soft to palpation and non-tender Progress Note: Objective Labs Labs: Short CBC 02/21/24 Range/Units 05:25 WBC 8.1 (4.0-11.0) 10^3/uL Hgb 11.6 L (14.0-18.0) g/dL Hct 35.2 L (42.0-54.0) % Plt Count 162 (150-450) 10^3/uL BMP 02/21/24 05:25 Sodium 132 L Potassium 4.4 Chloride 98 Carbon Dioxide 27.7 BUN 30.0 H Creatinine 1.46 H Glucose 353 H Calcium 8.4 L Liver Function 02/21/24 Range/Units 05:25 Total Bilirubin 0.3 (0.2-1.0) mg/dL AST 24 (15-37) U/L ALT 23 (16-63) U/L Alkaline Phosphatase 231 H (46-116) U/L Albumin 2.4 L (3.4-5.0) g/dL Progress Note: A&P Assessment and Plan (1) Hypotension: (2) COVID-19: (3) New onset a-fib: (4) Pneumonia: Qualifiers: Laterality: right Lung location: lower lobe of lung Pneumonia type: due to unspecified organism Qualified Code(s): J18.9 - Pneumonia, unspecified organism Plan Admission findings: Tachycardia, respiratory distress, significant hypotension with blood pressure 72/42 in the emergency room significant hypoxia with O2 saturation of 84%, positive lactate, elevated BNP, acute renal failure (baseline creatinine of 1.23, admission creatinine of 2.07, that is 168.3% above baseline.), Due to acute COVID, with acute hypoxia, resulting in A-fib with rapid ventricular response and possible acute combined congestive heart failure. Atrial fibrillation with rapid ventricular response -follow-up with cardiology and echocardiogram Acute COVID with hypoxia-continue patient on antibiotics, remdesivir, steroids, aerosol treatments with low-dose Xopenex-we will hold off on the steroids starting today. Elevated BNP-check echocardiogram, improved today. Iron deficiency anemia-monitor daily Hyponatremia likely secondary to the dehydration and hyperglycemia now. Worse today. Continue to monitor. Moderate protein calorie malnutrition based on NIH criteria for albumin-diet management Acute tension type headache-add Norflex Hiatal hernia-IV Pepcid Depression-continue with home medications History of hypertension-blood pressure creeping up, will restart home medications of Imdur and lisinopril L Admission status: Patient with acute hypoxia secondary to acute COVID resulting in a acute renal failure and acute atrial fibrillation with rapid ventricular response with possible acute combined congestive heart failure based on elevated BNP. Medically necessary treatment will span more than 2 midnights. Inpatient status. Remained stable and breathing continues to improve for 1 additional day, he can be discharged home tomorrow.
[2024-02-21 11:07] LABS: Glucometer 492 mg/dL (74-106)
[2024-02-21] MEDS: INSULIN ASPART 300 UNIT/3 ML PEN SUBQ ×3 (11:24→21:26)
[2024-02-21] MEDS: ORPHENADRINE 60 MG/ 2 ML VIAL IV ×2 (12:36→21:17)
[2024-02-21] MEDS: FUROSEMIDE 40 MG/4 ML VIAL IVP (12:36)
[2024-02-21 16:08] LABS: Glucometer 489 mg/dL (74-106)
[2024-02-21] MEDS: ATORVASTATIN CALCIUM 40 MG TABLET PO (21:17)
[2024-02-21] MEDS: ROPINIROLE HCL 0.25 MG TABLET 0.5 MG PO (21:17)
[2024-02-21 21:32] LABS: Glucometer 313 mg/dL (74-106)
[2024-02-21] MEDS: OXYCODONE HCL/ACETAMINOPHEN 5MG/325MG 1 TAB PO (21:49)
--- NOTE | 2024-02-21 22:01 | CT_ITS ---
The [address] [address] Patient Name: EVELIN CAMACHO MRN: [id number] date: 1955 Sex: M Assigned Patient Location: [place] Current Patient Location: [place] Accession/Order Number: [id number] Exam Date: 02/21/2024 22:50 Report Date: 02/22/2024 00:56 At the request of: RICCO UGARTE Procedure: CT head/brain wo con CT OF THE BRAIN WITHOUT CONTRAST: 02/21/2024 10:50 PM EDT HISTORY: Fell and struck head. TECHNIQUE: Contiguous axially collimated images were obtained through the intracranial compartment, from the vertex through the foramen magnum. Coronal and Sagittal reformatted images were prepared on a separate workstation and reviewed on the PACS for anatomic correlation. No contrast was administered. This CT exam was performed using one or more of the following dose reduction techniques: Automated exposure control, adjustment of the mA and/or kV according to patient size, or use of iterative reconstruction technique. Thin section coronal and sagittal images were reconstructed from the axial data set. All images were reviewed and interpreted. COMPARISON: None. FINDINGS: There is no intracranial hemorrhage or abnormal extra-axial fluid collection. To the extent of evaluated with noncontrast technique, there is no mass lesion appreciated. There is no mass-effect or shift of midline structures. The ventricles and CSF spaces are age appropriate. There is no evidence of hydrocephalus. There is no effacement of the basal cisterns. Coelho white matter differentiation is well preserved throughout, without evidence of acute ischemia. There is no significant leukomalacia. The basal ganglia and thalami are unremarkable. The posterior fossa, brain stem, and fourth ventricle are normal. There is no tonsillar ectopy. The calvarium is intact, without destructive lesion or depressed fracture. The mastoid air cells are well-aerated. The paranasal sinuses demonstrate significant mucoperiosteal thickening throughout the bilateral ethmoid air cells and moderate involving right maxillary sinus and mild throughout the left maxillary sinus. Minimal involving the frontal sinuses. No air-fluid levels. Sphenoid sinuses clear. Atherosclerotic calcific plaque distal ICA vessels. CT/CT head/brain wo con IMPRESSION: 1. No acute or significant intracranial pathology. 2. Extensive chronic sinus inflammatory changes as discussed. Stents of mucoperiosteal thickening throughout majority of sinuses with sparing of sphenoid. No acute air-fluid levels. Electronically authenticated by: ANETA TIMMONS Date: 02/22/2024 00:56
--- NOTE | 2024-02-21 22:03 | CT_ITS ---
The [address] [address] Patient Name: EVELIN CAMACHO MRN: [id number] date: 1955 Sex: M Assigned Patient Location: [place] Current Patient Location: [place] Accession/Order Number: [id number] Exam Date: 02/21/2024 22:50 Report Date: 02/22/2024 01:00 At the request of: RICCO UGARTE Procedure: CT lumbar spine wo con CT LUMBOSACRAL SPINE WITHOUT CONTRAST HISTORY: Fall. Hit back. Back pain. COMPARISON: None. TECHNIQUE: Thin section axial CT of the lumbar spine was performed from T12 to S2 vertebral bodies without contrast. Thin section sagittal and coronal reconstructed images were performed from the axial data set.In accordance with CT protocols and the ALARA principle, radiation dose reduction techniques were utilized for this examination. All images were reviewed and interpreted. CONTRAST: None. FINDINGS: Last rib-bearing vertebrae appears to be T12. There are 5 lumbar like distal vertebrae. There are no fractures or dislocations. There is normal vertebral body alignment and spacing. There are no significant spondylotic changes. Mild diffuse osseous demineralization. No lytic or blastic bone lesion. The T12-L1 through L3-4 disc spaces and joints are relatively well maintained. No central canal or neural foraminal narrowing. No disc bulge or herniation of any significance. At L4-5, there is a severe right greater than left facet arthropathy with mild disc bulging. Endplate disc changes on the left causing moderate left L4-5 neural foraminal stenosis. No right neural foraminal or central canal narrowing. At L5-S1, there is no significant central canal or neural foraminal narrowing. There is mild diffuse osseous demineralization. The imaged retroperitoneal tissues are normal. SI joints are maintained. There are normal paraspinal soft tissues. CT/CT lumbar spine wo con IMPRESSION: 1. No acute fracture or acute traumatic malalignment. 2. Lower lumbar spine degenerative changes mostly L4-5. See above. Electronically authenticated by: ANETA TIMMONS Date: 02/22/2024 01:00
--- NOTE | 2024-02-21 23:24 | PC.NURSE ---
2135 pt up to bathroom. Pt missed the toilet when he urinated, went to stand and slipped in his urine. Pt fell on his left side and stated he hit his head. RNs obtained vitals BP 178/86; HR77; RR 20. RNs and nursing car repair supervisor assisted patient to a seated position on the floor. Pt stated he was dizzy at that time. Once patient was assisted into a wheelchair he stated he was then lightheaded and dizzy. Pt was then helped into the bed and resting on his right side per patient request. No bruising or redness noted on the skin by the RN or car repair supervisor. Pt complains of lower left back pain that was a 6 out of 10. Percocet was given per PRN order. pt did not lose consciousness and was A&Ox4. Night hospitalist was called and made aware of the situation. STAT head and lumbar spine CTs ordered along with fall risk protocol and neuro checks Q2H. Pt assisted down to CT scanned by nursing car repair supervisor. Pt is now resting in bed with call light in reach eating a sandwich. Pt stated that the pain meds helped and he denies any other complaints at this time.
[2024-02-22] VITALS (23 sets, daily range): BP systolic 121–165; BP diastolic 69–96; PULSE 58–96; TEMP 36.1–36.8; O2SAT 92–96
[2024-02-22] MEDS: OXYCODONE HCL/ACETAMINOPHEN 5MG/325MG 1 TAB PO (03:48)
[2024-02-22] MEDS: LEVOTHYROXINE SODIUM 100 MCG TABLET 200 MCG PO (05:43)
[2024-02-22] MEDS: LIOTHYRONINE SODIUM 5 MCG TABLET PO (05:43)
[2024-02-22 05:47] LABS: Basophils Percent Auto 0.1 % (0.2-2.0); Eosinophils Percent Auto 0.3 % (0.9-7.0); Hemoglobin 11.5 g/dL (14.0-18.0); Immature Granulocytes Abs Auto 0.04 10^3/uL (0.00-0.03); Immature Granulocytes Pct Auto 0.4 % (0.0-0.5); Lymphocytes Absolute Auto 1.8 10^3/uL (1.2-3.8); Lymphocytes Percent Auto 17.9 % (20.5-60.0); Mean Corpuscular HGB Conc 32.9 g/dL (29.9-35.2); Mean Corpuscular Volume 85.4 fL (80.0-94.0); Mean Platelet Volume 10.1 fL (9.5-13.5); Monocytes Percent Auto 10.6 % (1.7-12.0); Neutrophils Absolute Auto 6.9 10^3/uL (1.4-6.5); Neutrophils Percent Auto 70.7 % (43.0-75.0); Platelet Count 163 10^3/uL (150-450); Red Cell Distribution Width 15.6 % (11.0-15.0); White Blood Count 9.8 10^3/uL (4.0-11.0)
[2024-02-22 06:15] LABS: Alanine Aminotransferase 24 U/L (16-63); Albumin Globulin Ratio 0.5; Albumin Level 2.4 g/dL (3.4-5.0); Alkaline Phosphatase 208 U/L (46-116); Aspartate Amino Transferase 23 U/L (15-37); BUN Creatinine Ratio 25.8; Bilirubin Total 0.4 mg/dL (0.2-1.0); Calcium 8.4 mg/dL (8.5-10.1); Carbon Dioxide 29.6 mmol/L (21.0-32.0); Chloride 101 mmol/L (98-107); Estimated GFR (African America >60 (>=60); Estimated GFR (Non-African Ame 54 (>=60); Globulin 4.7 g/dL; Glucose 170 mg/dL (74-106); Potassium 3.6 mmol/L (3.5-5.1); Sodium 135 mmol/L (136-145); Total Protein 7.1 g/dL (6.4-8.2)
[2024-02-22 07:44] LABS: Glucometer 225 mg/dL (74-106)
[2024-02-22] MEDS: INSULIN ASPART 300 UNIT/3 ML PEN SUBQ ×4 (09:05→22:10)
[2024-02-22] MEDS: REMDESIVIR 100 MG in 0.9 % SODIUM CHLORIDE 100 ML 200 MG IV (10:19)
[2024-02-22] MEDS: FUROSEMIDE 40 MG/4 ML VIAL IVP (10:20)
[2024-02-22] MEDS: FAMOTIDINE/PF 20 MG/2 ML VIAL IV ×2 (10:27→22:23)
[2024-02-22] MEDS: ACETAMINOPHEN 500 MG TABLET 1000 MG PO ×2 (10:28→20:25)
[2024-02-22] MEDS: APIXABAN 5 MG TABLET 2.5 MG PO ×2 (10:28→20:26)
[2024-02-22] MEDS: ISOSORBIDE MONONITRATE 30 MG TAB.ER.24H PO (10:29)
[2024-02-22] MEDS: ORPHENADRINE 60 MG/ 2 ML VIAL IV ×2 (10:30→20:25)
[2024-02-22] MEDS: GABAPENTIN 100 MG CAPSULE PO ×2 (10:30→20:27)
[2024-02-22] MEDS: SERTRALINE HCL 100 MG TABLET PO (10:30)
[2024-02-22] MEDS: LISINOPRIL 20 MG TABLET PO (10:30)
[2024-02-22] MEDS: CETIRIZINE HCL 10 MG TABLET 20 MG PO (10:31)
[2024-02-22] MEDS: BENZONATATE 100 MG CAPSULE 200 MG PO ×2 (10:31→17:11)
[2024-02-22] MEDS: INSULIN DETEMIR 300 UNIT/3 ML INSULN.PEN 40 UNIT SUBQ (10:31)
--- NOTE | 2024-02-22 10:41 | P.PN_ITS ---
Progress Note: Subjective Subjective Interval history: Cough much improved from previous day. No significant back pain secondary to fall, mild headache as well from the fall. Exam Constitutional Vital Signs, click to edit/add: Last Vital Signs Temp 98.2 F 02/22/24 03:52 Pulse 61 02/22/24 10:29 Resp 16 02/22/24 03:52 BP 165/84 H 02/22/24 10:30 Pulse Ox 96 02/22/24 10:29 O2 Del Method Room Air 02/22/24 05:30 O2 Flow Rate 2 02/19/24 14:00 Documenting provider has reviewed patient's vital signs: yes Common normals: apparent distress (Mild respiratory distress) Chest Common normals: inspection of chest normal Respiratory Common normals: abnormal respiratory effort (Conversational dyspnea appears to be resolved) Effort & inspection: non tachypneic and no respiratory distress Auscultation: rhonchi (Diffuse rhonchi consistent with COVID) Cardio Common normals: no murmurs Rate: tachycardic Rhythm: abnormal rhythm GI Common normals: Normal to inspection, nondistended, normoactive bowel sounds present, soft to palpation and non-tender Progress Note: Objective Labs Labs: Short CBC 02/22/24 Range/Units 05:22 WBC 9.8 (4.0-11.0) 10^3/uL Hgb 11.5 L (14.0-18.0) g/dL Hct 35.0 L (42.0-54.0) % Plt Count 163 (150-450) 10^3/uL BMP 02/22/24 05:22 Sodium 135 L Potassium 3.6 Chloride 101 Carbon Dioxide 29.6 BUN 34.0 H Creatinine 1.32 H Glucose 170 H Calcium 8.4 L Liver Function 02/22/24 Range/Units 05:22 Total Bilirubin 0.4 (0.2-1.0) mg/dL AST 23 (15-37) U/L ALT 24 (16-63) U/L Alkaline Phosphatase 208 H (46-116) U/L Albumin 2.4 L (3.4-5.0) g/dL Progress Note: A&P Assessment and Plan (1) Hypotension: (2) COVID-19: (3) New onset a-fib: (4) Pneumonia: Qualifiers: Laterality: right Lung location: lower lobe of lung Pneumonia type: due to unspecified organism Qualified Code(s): J18.9 - Pneumonia, unspecified organism Plan Admission findings: Tachycardia, respiratory distress, significant hypotension with blood pressure 72/42 in the emergency room significant hypoxia with O2 saturation of 84%, positive lactate, elevated BNP, acute renal failure (baseline creatinine of 1.23, admission creatinine of 2.07, that is 168.3% above baseline.), Due to acute COVID, with acute hypoxia, resulting in A-fib with rapid ventricular response and possible acute combined congestive heart failure. Atrial fibrillation with rapid ventricular response -follow-up with cardiology and echocardiogram-rate controlled currently continue with current medications Mild fluid overload-will repeat Lasix again today. BNP somewhat elevated from previous day. Acute COVID with hypoxia-continue patient on antibiotics, remdesivir, steroids, aerosol treatments with low-dose Xopenex-we will hold off on the steroids starting today. Will need 1 more day of the remdesivir to finish this out. Likely discharge tomorrow Elevated BNP-check echocardiogram, improved today. Iron deficiency anemia-monitor daily Hyponatremia likely secondary to the dehydration and hyperglycemia now. Improved today Moderate protein calorie malnutrition based on NIH criteria for albumin-diet management Acute tension type headache-add Norflex-were status post fall, CT scan of head was negative Hiatal hernia-IV Pepcid Depression-continue with home medications History of hypertension-blood pressure creeping up, will restart home medications of Imdur and lisinopril Fall with back pain-continue with current medications Admission status: Patient with acute hypoxia secondary to acute COVID resulting in a acute renal failure and acute atrial fibrillation with rapid ventricular response with possible acute combined congestive heart failure based on elevated BNP. Medically necessary treatment will span more than 2 midnights. Inpatient status. Remained stable and breathing continues to improve for 1 additional day, he is to finish the remdesivir today. If stable between today and tomorrow likely discharge tomorrow
[2024-02-22 11:02] LABS: Glucometer 301 mg/dL (74-106)
[2024-02-22] MEDS: AZITHROMYCIN 500 MG in 0.9 % SODIUM CHLORIDE 250 ML 250 MG IV (12:18)
[2024-02-22 16:04] LABS: Glucometer 160 mg/dL (74-106)
[2024-02-22] MEDS: HYOSCYAMINE SULFATE 0.125 MG TAB.SUBL SL (17:16)
[2024-02-22 20:49] LABS: Glucometer 172 mg/dL (74-106)
[2024-02-22] MEDS: HYDROXYZINE HCL 25 MG TABLET PO (22:16)
[2024-02-22] MEDS: ROPINIROLE HCL 0.25 MG TABLET 0.5 MG PO (22:23)
[2024-02-23] VITALS: PULSE 106; O2SAT 93
[2024-02-23 01:57] VITALS: PULSE 91; O2SAT 94
[2024-02-23] MEDS: OXYCODONE HCL/ACETAMINOPHEN 5MG/325MG 1 TAB PO (03:20)
[2024-02-23] MEDS: BENZONATATE 100 MG CAPSULE 200 MG PO (03:20)
[2024-02-23 03:57] VITALS: PULSE 79; O2SAT 91
[2024-02-23 04:00] VITALS: BP 112/77; PULSE 67; TEMP 36.3; O2SAT 94
[2024-02-23 05:35] LABS: Basophils Percent Auto 0.2 % (0.2-2.0); Eosinophils Absolute Auto 0.1 10^3/uL (0.0-0.7); Eosinophils Percent Auto 1.4 % (0.9-7.0); Hemoglobin 12.4 g/dL (14.0-18.0); Immature Granulocytes Abs Auto 0.04 10^3/uL (0.00-0.03); Immature Granulocytes Pct Auto 0.5 % (0.0-0.5); Lymphocytes Absolute Auto 2.5 10^3/uL (1.2-3.8); Lymphocytes Percent Auto 29.4 % (20.5-60.0); Mean Corpuscular HGB Conc 32.6 g/dL (29.9-35.2); Mean Corpuscular Hemoglobin 28.2 pg (25.9-34.0); Mean Corpuscular Volume 86.4 fL (80.0-94.0); Mean Platelet Volume 10.3 fL (9.5-13.5); Monocytes Absolute Auto 0.9 10^3/uL (0.3-0.8); Neutrophils Absolute Auto 4.8 10^3/uL (1.4-6.5); Neutrophils Percent Auto 57.5 % (43.0-75.0); Platelet Count 170 10^3/uL (150-450); Red Cell Distribution Width 15.6 % (11.0-15.0); White Blood Count 8.4 10^3/uL (4.0-11.0)
[2024-02-23 06:00] VITALS: PULSE 81
[2024-02-23 06:01] LABS: Alanine Aminotransferase 24 U/L (16-63); Albumin Globulin Ratio 0.5; Albumin Level 2.4 g/dL (3.4-5.0); Alkaline Phosphatase 170 U/L (46-116); Anion Gap 9.7; Aspartate Amino Transferase 31 U/L (15-37); BUN Creatinine Ratio 22.1; Bilirubin Total 0.5 mg/dL (0.2-1.0); Calcium 8.4 mg/dL (8.5-10.1); Carbon Dioxide 29.7 mmol/L (21.0-32.0); Chloride 100 mmol/L (98-107); Estimated GFR (African America >60 (>=60); Estimated GFR (Non-African Ame 51 (>=60); Globulin 4.8 g/dL; Glucose 171 mg/dL (74-106); Potassium 3.4 mmol/L (3.5-5.1); Sodium 136 mmol/L (136-145); Total Protein 7.2 g/dL (6.4-8.2)
[2024-02-23] MEDS: LEVOTHYROXINE SODIUM 100 MCG TABLET 200 MCG PO (06:35)
[2024-02-23] MEDS: LIOTHYRONINE SODIUM 5 MCG TABLET PO (06:35)
--- NOTE | 2024-02-23 06:40 | P.DS_ITS ---
DS: Providers Provider Date of admission: 02/18/24 22:47 Primary care physician: KATHIA LAZAR Consults: 02/19/24 08:41 Occupational Therapy Eval and Treat Routine Reason for consultation: Only if needed for Rehab Has provider been notified: No Physical Therapy Eval and Treat Routine Reason for consultation: Eval and Treat Has provider been notified: No DS: Diagnosis Discharge Diagnosis (1) Hypotension: (2) COVID-19: (3) New onset a-fib: (4) Pneumonia: Qualifiers: Laterality: right Lung location: lower lobe of lung Pneumonia type: due to unspecified organism Qualified Code(s): J18.9 - Pneumonia, unspecified organism Plan Admission findings: Tachycardia, respiratory distress, significant hypotension with blood pressure 72/42 in the emergency room significant hypoxia with O2 saturation of 84%, positive lactate, elevated BNP, acute renal failure (baseline creatinine of 1.23, admission creatinine of 2.07, that is 168.3% above baseline.), Due to acute COVID, with acute hypoxia, resulting in A-fib with rapid ventricular response and possible acute combined congestive heart failure. Atrial fibrillation with rapid ventricular response -follow-up with cardiology and echocardiogram-rate controlled currently continue with current medications Mild fluid overload-will repeat Lasix again today. BNP back to baseline today Acute COVID with hypoxia-continue patient on antibiotics, remdesivir, steroids, aerosol treatments with low-dose Xopenex-we will hold off on the steroids starting today. At the time of discharge Elevated BNP-c resolved at the time of discharge, Iron deficiency anemia with Occ blood positive stools resulting acute blood loss anemia-stable at the time of discharge Hyponatremia likely secondary to the dehydration and hyperglycemia now. Improved today Moderate protein calorie malnutrition based on NIH criteria for albumin-diet management Acute tension type headache-add Norflex-were status post fall, CT scan of head was negative Hiatal hernia-IV Pepcid Depression-continue with home medications History of hypertension-blood pressure creeping up, will restart home medications of Imdur and lisinopril Fall with back pain-continue with current medications Admission status: Patient with acute hypoxia secondary to acute COVID resulting in a acute renal failure and acute atrial fibrillation with rapid ventricular response with possible acute combined congestive heart failure based on elevated BNP. Medically necessary treatment will span more than 2 midnights. Inpatient status. Remained stable and breathing continues to improve for 1 additional day, he is to finish the remdesivir today. If stable between today and tomorrow likely discharge tomorrow ? DS: Summary Hospital Course Hospital Course: Admitted with Tachycardia, respiratory distress, significant hypotension with blood pressure 72/42 in the emergency room significant hypoxia with O2 saturation of 84%, positive lactate, elevated BNP, acute renal failure (baseline creatinine of 1.23, admission creatinine of 2.07, that is 168.3% above baseline.), Due to acute COVID, with acute hypoxia, resulting in A-fib with rapid ventricular response and possible acute combined congestive heart failure. Patient was treated for the COVID-19 with remdesivir, medications were adjusted and patient was diuresed, his BNP is finally back down to normal. He still has significant respiratory distress yesterday also pain of the prior day secondary to fall. Has been able to maintain off of the supplemental oxygen, his breathing is overall improved, pain in his back is persisting, shortness of breath likely to persist for another week or 2 as it is more related to the COVID-19 as opposed to the acute combined congestive heart failure. Patient will be discharged home in improving condition. Medications see list. Follow- up with his PCP within the next week. Status at Discharge Overall status at discharge: patient is not back to baseline Time Spent with Patient Time attestation: Total time spent providing and/or coordinating discharge services: Time spent: greater than 30 minutes Exam Constitutional Vital Signs, click to edit/add: Last Vital Signs Temp 97.3 F L 02/23/24 04:00 Pulse 81 02/23/24 06:00 Resp 18 02/23/24 04:00 BP 112/77 02/23/24 04:00 Pulse Ox 94 L 02/23/24 04:00 O2 Del Method Room Air 02/23/24 04:00 O2 Flow Rate 2 02/22/24 08:00 Documenting provider has reviewed patient's vital signs: yes Common normals: apparent distress (Mild respiratory distress) Chest Common normals: inspection of chest normal Respiratory Common normals: normal respiratory effort (Conversational dyspnea appears to be resolved) Effort & inspection: non tachypneic (Today is the first day and his breathing has been back to baseline) and no respiratory distress Auscultation: rhonchi (Diffuse rhonchi consistent with COVID) Cardio Common normals: no murmurs Rate: tachycardic Rhythm: abnormal rhythm GI Common normals: Normal to inspection, nondistended, normoactive bowel sounds present, soft to palpation and non-tender DS: Data Data Completed and Pending Labs on day of discharge: Labs from last 24 hours 02/23/24 02/22/24 02/22/24 05:17 20:43 16:03 WBC 8.4 RBC 4.40 L Hgb 12.4 L Hct 38.0 L MCV 86.4 MCH 28.2 MCHC 32.6 RDW 15.6 H Plt Count 170 MPV 10.3 Neut % (Auto) 57.5 Lymph % (Auto) 29.4 [place] % (Auto) 11.0 Eos % (Auto) 1.4 Baso % (Auto) 0.2 Neut # (Auto) 4.8 Lymph # (Auto) 2.5 [place] # (Auto) 0.9 H Eos # (Auto) 0.1 Baso # (Auto) 0.0 Abs Immat Gran (auto) 0.04 H Imm/Tot Granulo (auto) 0.5 Sodium 136 Potassium 3.4 L Chloride 100 Carbon Dioxide 29.7 Anion Gap 9.7 BUN 31.0 H Creatinine 1.40 H Est GFR ( Amer) >60 Est GFR (Non-Af Amer) 51 L BUN/Creatinine Ratio 22.1 Glucose 171 H Calcium 8.4 L Total Bilirubin 0.5 AST 31 ALT 24 Alkaline Phosphatase 170 H NT-Pro-B Natriuret Pep 831.0 Total Protein 7.2 Albumin 2.4 L Globulin 4.8 Albumin/Globulin Ratio 0.5 POC Glucose 172 H 160 H 02/22/24 02/22/24 11:01 07:44 WBC RBC Hgb Hct MCV MCH MCHC RDW Plt Count MPV Neut % (Auto) Lymph % (Auto) [place] % (Auto) Eos % (Auto) Baso % (Auto) Neut # (Auto) Lymph # (Auto) [place] # (Auto) Eos # (Auto) Baso # (Auto) Abs Immat Gran (auto) Imm/Tot Granulo (auto) Sodium Potassium Chloride Carbon Dioxide Anion Gap BUN Creatinine Est GFR ( Amer) Est GFR (Non-Af Amer) BUN/Creatinine Ratio Glucose Calcium Total Bilirubin AST ALT Alkaline Phosphatase NT-Pro-B Natriuret Pep Total Protein Albumin Globulin Albumin/Globulin Ratio POC Glucose 301 H 225 H Preliminary micro results at discharge 02/18/24 18:59 - Preliminary Blood NO GROWTH AT 36-48 HOURS. FINAL TO FOLLOW. 02/18/24 18:54 Blood Culture Result 1 - Preliminary Blood NO GROWTH AT 36-48 HOURS. FINAL TO FOLLOW. Discharge Plan Discharge Disposition: Home, Self-Care Condition: Good Discharge Medications: New lisinopril 20 mg Tablet 20 mg PO QD Qty: 30 11RF isosorbide mononitrate 30 mg Tablet Extended Release 24 Hr 30 mg PO QD Qty: 30 11RF Eliquis 5 mg Tablet 2.5 mg PO BID Qty: 60 11RF levofloxacin 500 mg tablet 500 mg PO DAILY 7 Days Qty: 7 0RF Continued atorvastatin 40 mg tablet 40 mg PO BEDTIME esomeprazole magnesium 40 mg capsule,delayed release(DR/EC) 40 mg PO Q24H gabapentin 100 mg capsule 100 mg PO BID hydroxyzine HCl 25 mg tablet 25 mg PO QID PRN (Reason: nausea and vomiting) insulin glargine [Lantus Solostar U-100 Insulin] 100 unit/mL (3 mL) insulin pen 40 unit SUBCUT DAILY isosorbide mononitrate 30 mg tablet extended release 24 hr 30 mg PO DAILY levothyroxine 200 mcg tablet 200 mcg PO DAILY liothyronine 5 mcg tablet 5 mcg PO DAILY sertraline 100 mg tablet 100 mg PO DAILY oxycodone-acetaminophen 5-325 mg tablet 1 tab PO QID PRN (Reason: pain) Rx Instructions: per refill hx: last filled 06/18/23 for QTY 60 for 15 days ropinirole 0.5 mg tablet 0.5 mg PO BEDTIME benzonatate 100 mg Capsule 200 mg PO Q8H 5 Days Qty: 30 0RF moxifloxacin 0.5 % Drops 1 drp ophthalmic (eye) TID 7 Days Qty: 3 0RF promethazine-DM 6.25-15 mg/5 mL syrup 5 ml PO Q8H PRN (Reason: cough) 3 Days Qty: 118 0RF Discontinued lisinopril 40 mg tablet 40 mg PO DAILY azithromycin [Zithromax] 250 mg tablet 250 mg PO DAILY 4 Days Qty: 4 0RF amoxicillin-pot clavulanate [Augmentin] 500-125 mg tablet 1 tab PO Q12H 7 Days Qty: 14 0RF Activity: increase activity as tolerated Diet: advance to your usual diet Print Language: French Patient Instructions: Lisinopril (By mouth), Levofloxacin (By mouth), Apixaban (By mouth), Hypoxia (ED) Forms: Portal Instructions Follow Up Appointments: February 26 @ 9:45am with Kathia Lazar NP [phone] Discharge Date/Time: 02/23/24 10:23
[2024-02-23 07:52] VITALS: PULSE 85
[2024-02-23 08:05] LABS: Glucometer 209 mg/dL (74-106)
--- NOTE | 2024-02-23 09:10 | CM.NOTE ---
Rounds made with Dr. Amado. Plan for discharge today. Verbalizes understanding.
--- NOTE | 2024-02-23 10:02 | SWNOTE1 ---
SW stopped in to talk to pt about transport and HH. Pt found a ride home from a friend. He voiced she is going to mow he lawn and then she will be here to get him. At this time pt still does not want any home health at discharge. SW to follow as needed. 2nd notice of Important Message from Medicare reviewed and discussed with patient. Pt. verbalized understanding and had no questions or concerns at this time.
[2024-02-23] MEDS: INSULIN ASPART 300 UNIT/3 ML PEN SUBQ (10:04)
[2024-02-23] MEDS: INSULIN DETEMIR 300 UNIT/3 ML INSULN.PEN 40 UNIT SUBQ (10:06)
[2024-02-23] MEDS: LISINOPRIL 20 MG TABLET PO (10:09)
[2024-02-23] MEDS: ACETAMINOPHEN 500 MG TABLET 1000 MG PO (10:09)
[2024-02-23] MEDS: GABAPENTIN 100 MG CAPSULE PO (10:09)
[2024-02-23] MEDS: CETIRIZINE HCL 10 MG TABLET 20 MG PO (10:09)
[2024-02-23] MEDS: ISOSORBIDE MONONITRATE 30 MG TAB.ER.24H PO (10:09)
[2024-02-23] MEDS: SERTRALINE HCL 100 MG TABLET PO (10:09)
[2024-02-23] MEDS: POTASSIUM CHLORIDE 10 MEQ ER TABLET 20 MEQ PO (10:09)
[2024-02-23] MEDS: APIXABAN 5 MG TABLET 2.5 MG PO (10:10)
--- NOTE | 2024-02-23 10:34 | REH.PTDLY ---
Physical Therapy Daily Note PT Daily Note/Assess Start: 02/20/24 07:43 Freq: Status: Active Protocol: Document 02/23/24 10:27 ELVIRA (Rec: 02/23/24 10:34 ELVIRA [id number]) Physical Therapy Daily Note/Assessment Time In 09:42 Time Out 09:57 Subjective Pt up walking upon arrival in bathroom, pt is not to be up walking in room on his own per nursing. Pt fell yesterday in the bathroom. Back is sore from this. Pt is to be DC today. Therapeutic Activity Minutes (minutes) 10 Therapeutic Activity Units 1 Therapeutic Activity Comments Pt ambulating with rollator in room 15 feet. Pt given pants to don, needs minimal assistance to get over socks. Able to don shirt on is own. Sit to stand transfers Ind. Gait another 15 feet to sit up in chair per nurse Martha instruction Total Therapy Minutes 10 Total Physical Therapy Units 1 Daily Note Summary Pt declines performing any exs as he says his back is sore. Pt is to go home today and will return for OP PT.
--- NOTE | 2024-02-24 13:52 | CM.DCFOLLOWU ---
1st attempt 02/24/24
--- NOTE | 2024-02-25 11:38 | CM.DCFOLLOWU ---
Person spoke with:patient How are you feeling? well How is your pain? none Did you understand your discharge instructions? yes Do you have any questions about your discharge instructions? no Were you given any prescriptions at discharge? yes Were you able to get your prescriptions filled? yes Do you understand how to take your medications as ordered? yes Do you have any questions about your follow up appointment and do you plan to keep your follow up appointment? no questions, reviewed follow up Is there anything else that you would like to discuss? no Questions/Comments/Concerns/Other: none
== END 2024-02-23 10:23 | disposition home or self-care (01) | DRG 871 ==
LOC: ER 21:49 → ICU 22:50 → MS 02-19 16:15
PROVIDERS: Physician Assistant; Registered Nurse; Admitting Provider Family Medicine; Emergency Provider Emergency Medicine; PCP Nurse Practitioner Family; Visit Provider Family Medicine
DX: A41.89 Other specified sepsis (principal); I50.41 Acute combined systolic (congestive) and diastolic (congestive) heart failure; U07.1 COVID-19; J12.82 Pneumonia due to coronavirus disease 2019; J15.9 Unspecified bacterial pneumonia; N17.9 Acute kidney failure, unspecified; E87.1 Hypo-osmolality and hyponatremia; E44.0 Moderate protein-calorie malnutrition; Z68.42 Body mass index [BMI] 45.0-49.9, adult; D62 Acute posthemorrhagic anemia; R65.20 Severe sepsis without septic shock; I48.91 Unspecified atrial fibrillation; D50.9 Iron deficiency anemia, unspecified; K44.9 Diaphragmatic hernia without obstruction or gangrene; I11.0 Hypertensive heart disease with heart failure; F32.A Depression, unspecified; R00.0 Tachycardia, unspecified; R06.03 Acute respiratory distress; R09.02 Hypoxemia; I95.9 Hypotension, unspecified; R73.9 Hyperglycemia, unspecified; G44.209 Tension-type headache, unspecified, not intractable; M54.9 Dorsalgia, unspecified; W01.10XA Fall on same level from slipping, tripping and stumbling with subsequent striking against unspecified object, initial encounter; W19.XXXA Unspecified fall, initial encounter; Z79.899 Other long term (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
CPT/HCPCS: 36415; 70450; 71275; 72125; 72131; 74174; 80053; 81001; 82800; 82948; 83605; 83690; 83735; 83880; 84100; 84145; 84443; 84484; 85007; 85025; 85027; 85610; 85730; 86140; 87040; 87045; 87046; 87070; 87205; 87427; 87493; 87811; 93005; 93308; 94667; 94668; 94761; 96361; 96365; 96366; 96367; 96372; 96375; 96376; 97161; 97165; 97530; 97535; 99285; G0328; J0248; J0456; J1100; J1650; J1940; J2360; Q9967

== ENCOUNTER 2024-03-01 11:09 | Outpatient (OUT) | payer MEDICARE, MEDICAID, SELFPAY ==
--- NOTE | 2024-03-01 11:21 | XR_ITS ---
The [address] [address] Patient Name: EVELIN CAMACHO MRN: [id number] date: 1955 Sex: M Assigned Patient Location: [facility] Current Patient Location: Accession/Order Number: [id number] Exam Date: 03/01/2024 11:25 Report Date: 03/02/2024 06:45 At the request of: DANIS ISBELL Procedure: XR ribs LT min 3V w CXR1V EXAMINATION: XR ribs LT min 3V w CXR1V HISTORY: Rib Pain On Left R07.81 after falling COMPARISON: No relevant comparison available. FINDINGS: LUNGS: Mild haziness and stranding within lung bases. PLEURA: No pneumothorax, effusion, or pleural thickening. MEDIASTINUM: No visible mass or adenopathy. CARDIAC: No cardiomegaly or cardiac silhouette abnormality. RIBS: No visible fracture or lesion. OTHER: Negative. XR/XR ribs LT min 3V w CXR1V IMPRESSION: 1. No appreciable rib abnormality. 2. Mild bibasilar atelectasis, or less likely infiltrates. Electronically authenticated by: CAROL YIP Date: 03/02/2024 06:45
== END 2024-03-01 11:10 | disposition home or self-care (01) ==
LOC: RAD 11:12
PROVIDERS: PCP Nurse Practitioner Family; Visit Provider Family Medicine
DX: R07.81 Pleurodynia (principal); K86.0 Alcohol-induced chronic pancreatitis
CPT/HCPCS: 71101

== ENCOUNTER 2024-03-10 14:52 | Outpatient (OUT) | payer MEDICARE, MEDICAID, SELFPAY ==
--- NOTE | 2024-03-10 14:55 | US_ITS ---
[address] [address] Patient Name: EVELIN CAMACHO MRN: [id number] date: 1955 Sex: M Assigned Patient Location: [place] Current Patient Location: Accession/Order Number: [id number] Exam Date: 03/10/2024 14:56 Report Date: 03/11/2024 06:50 At the request of: KATHIA LAZAR Procedure: US right upper quadrant EXAMINATION: US right upper quadrant HISTORY: Fatty Liver K76.0 ; right upper quadrant pain since falling one week ago COMPARISON: CT abdomen pelvis 02/18/2024 TECHNIQUE: Transabdominal evaluation of the right upper quadrant. FINDINGS: LIVER: Coarse heterogeneous echotexture without appreciable mass. PORTAL VEIN: Duplex Doppler demonstrates normal hepatopetal flow pattern with flow velocity averaging 28 cm/s. GALLBLADDER: Cholecystectomy. BILIARY: No abnormal dilation or stones. Common bile duct diameter is within normal limits. PANCREAS: Not well seen. No visible mass, abnormal atrophy, or duct dilation. KIDNEY: No hydronephrosis. No visible mass or stones. Size: 10.8 x 5.5 x 5.1 cm US/US right upper quadrant IMPRESSION: 1. Evaluation is limited by patient body habitus. 2. Prior cholecystectomy. 3. Coarse heterogeneous appearance of liver suggestive of hepatocellular disease. 4. No acute findings. Electronically authenticated by: CAROL YIP Date: 03/11/2024 06:50
== END 2024-03-10 14:53 | disposition home or self-care (01) ==
LOC: US 14:52
PROVIDERS: PCP Nurse Practitioner Family; Visit Provider Nurse Practitioner Family
DX: R07.81 Pleurodynia (principal); K76.0 Fatty (change of) liver, not elsewhere classified
CPT/HCPCS: 76705

== ENCOUNTER 2024-03-25 16:11 | Emergency (ER) | payer MEDICARE, MEDICAID, SELFPAY ==
[2024-03-25 16:18] VITALS: BP 140/103; PULSE 68; TEMP 36.5; O2SAT 98; BMI 45.9
--- NOTE | 2024-03-25 16:28 | XR_ITS ---
The [address] [address] Patient Name: EVELIN CAMACHO MRN: [id number] date: 1955 Sex: M Assigned Patient Location: ER Current Patient Location: ER Accession/Order Number: [id number] Exam Date: 03/25/2024 16:53 Report Date: 03/25/2024 18:06 At the request of: ALYSSIA MCDANIEL Procedure: XR lumbar spine 2-3V EXAM: XR lumbar spine 2-3V, XR thoracic spine 3V, XR ribs BI 3V HISTORY: Pain, fall 3-4 weeks ago COMPARISON: None. TECHNIQUE: 3 views thoracic and lumbar spine and Chest, single view as well as 11 images of Bilateral rib series . FINDINGS: Bones: There appears decrease in height of T10 vertebral body which 40% loss of height at the center, may represent compression fracture. Normal vertebral body heights. No aggressive appearing lesion. Alignment: No pathologic listhesis or scoliotic curvature. Degenerative findings: No radiographic evidence of degenerative findings. Ribs: Lungs/pleura: No consolidation, effusion, or pneumothorax. Bones: No acute abnormality identified. XR/XR lumbar spine 2-3V IMPRESSION: There appears decrease in height of T10 vertebral body which 40% loss of height at the center, may represent compression fracture. No acute displaced rib fracture. Electronically authenticated by: MATIAS ESTEBAN Date: 03/25/2024 18:06
--- NOTE | 2024-03-25 16:28 | XR_ITS ---
The [address] [address] Patient Name: EVELIN CAMACHO MRN: [id number] date: 1955 Sex: M Assigned Patient Location: ER Current Patient Location: ER Accession/Order Number: [id number] Exam Date: 03/25/2024 16:53 Report Date: 03/25/2024 18:06 At the request of: ALYSSIA MCDANIEL Procedure: XR thoracic spine 3V EXAM: XR lumbar spine 2-3V, XR thoracic spine 3V, XR ribs BI 3V HISTORY: Pain, fall 3-4 weeks ago COMPARISON: None. TECHNIQUE: 3 views thoracic and lumbar spine and Chest, single view as well as 11 images of Bilateral rib series . FINDINGS: Bones: There appears decrease in height of T10 vertebral body which 40% loss of height at the center, may represent compression fracture. Normal vertebral body heights. No aggressive appearing lesion. Alignment: No pathologic listhesis or scoliotic curvature. Degenerative findings: No radiographic evidence of degenerative findings. Ribs: Lungs/pleura: No consolidation, effusion, or pneumothorax. Bones: No acute abnormality identified. XR/XR thoracic spine 3V IMPRESSION: There appears decrease in height of T10 vertebral body which 40% loss of height at the center, may represent compression fracture. No acute displaced rib fracture. Electronically authenticated by: MATIAS ESTEBAN Date: 03/25/2024 18:06
--- NOTE | 2024-03-25 16:28 | XR_ITS ---
The [address] [address] Patient Name: EVELIN CAMACHO MRN: [id number] date: 1955 Sex: M Assigned Patient Location: ER Current Patient Location: ER Accession/Order Number: [id number] Exam Date: 03/25/2024 16:53 Report Date: 03/25/2024 18:06 At the request of: ALYSSIA MCDANIEL Procedure: XR ribs BI 3V EXAM: XR lumbar spine 2-3V, XR thoracic spine 3V, XR ribs BI 3V HISTORY: Pain, fall 3-4 weeks ago COMPARISON: None. TECHNIQUE: 3 views thoracic and lumbar spine and Chest, single view as well as 11 images of Bilateral rib series . FINDINGS: Bones: There appears decrease in height of T10 vertebral body which 40% loss of height at the center, may represent compression fracture. Normal vertebral body heights. No aggressive appearing lesion. Alignment: No pathologic listhesis or scoliotic curvature. Degenerative findings: No radiographic evidence of degenerative findings. Ribs: Lungs/pleura: No consolidation, effusion, or pneumothorax. Bones: No acute abnormality identified. XR/XR ribs BI 3V IMPRESSION: There appears decrease in height of T10 vertebral body which 40% loss of height at the center, may represent compression fracture. No acute displaced rib fracture. Electronically authenticated by: MATIAS ESTEBAN Date: 03/25/2024 18:06
--- NOTE | 2024-03-25 16:30 | ED.GENADUL1 ---
HPI HPI - General Adult General Chief complaint: Abdominal Pain Stated complaint: ABDOMINAL PAIN/BACK PAIN Time Seen by Provider: 03/25/24 16:24 Source: patient Mode of arrival: walk-in Limitations: no limitations History of Present Illness HPI narrative: 68 year old male presents to the ED for pain to his mid and lower back, bilateral ribs, and upper abdomen s/p fall on 02/21/24. He slipped and fell in the restroom, hitting his head. He was evaluated after the fall. Denies LOC. Denies SOB, CP, dizziness. Denies N/V/D, dysuria, hematuria. Denies change in bowel and/or bladder control. Denies saddle anesthesia. He is driving today. His pain is worse with movement and palpation. CT lumbar spine 02/21/24: 1. No acute fracture or acute traumatic malalignment. 2. Lower lumbar spine degenerative changes mostly L4-5. See above. CT head 02/21/24: 1. No acute or significant intracranial pathology. 2. Extensive chronic sinus inflammatory changes as discussed. Stents of mucoperiosteal thickening throughout majority of sinuses with sparing of sphenoid. No acute air-fluid levels. X-ray ribs 03/01/24: 1. No appreciable rib abnormality. 2. Mild bibasilar atelectasis, or less likely infiltrates. RUQ ultrasound 03/10/24: 1. Evaluation is limited by patient body habitus. 2. Prior cholecystectomy. 3. Coarse heterogeneous appearance of liver suggestive of hepatocellular disease. 4. No acute findings. Related Data Home Medications ?Medication ?Instructions ?Recorded ?Confirmed atorvastatin 40 mg tablet 40 mg PO BEDTIME 07/16/23 03/25/24 esomeprazole magnesium 40 mg 40 mg PO Q24H 07/16/23 03/25/24 capsule,delayed release gabapentin 100 mg capsule 100 mg PO BID 07/16/23 03/25/24 hydroxyzine HCl 25 mg tablet 25 mg PO QID PRN nausea and 07/16/23 03/25/24 vomiting insulin glargine 100 unit/mL (3 40 unit subcut DAILY 07/16/23 03/25/24 mL) subcutaneous pen (Lantus Solostar U-100 Insulin) isosorbide mononitrate 30 mg 30 mg PO DAILY 07/16/23 03/25/24 tablet,extended release 24 hr levothyroxine 200 mcg tablet 200 mcg PO DAILY 07/16/23 07/16/23 liothyronine 5 mcg tablet 5 mcg PO DAILY 07/16/23 07/16/23 oxycodone-acetaminophen 5 mg-325 1 tab PO QID PRN pain 07/16/23 07/16/23 mg tablet ropinirole 0.5 mg tablet 0.5 mg PO BEDTIME 07/16/23 03/25/24 sertraline 100 mg tablet 100 mg PO DAILY 07/16/23 03/25/24 Previous Rx's ?Medication ?Instructions ?Recorded moxifloxacin 0.5 % eye drops 1 drp ophthalmic (eye) TID 7 days 07/20/23 #3 mL promethazine-DM 6.25 mg-15 mg/5 mL 5 ml PO Q8H PRN cough 3 days #118 07/20/23 oral syrup mL apixaban 5 mg tablet (Eliquis) 2.5 mg (1/2 x 5 mg) PO BID #60 tabs 02/23/24 isosorbide mononitrate 30 mg 30 mg PO QD #30 tabs 02/23/24 tablet,extended release 24 hr levofloxacin 500 mg tablet 500 mg PO DAILY 7 days #7 tabs 02/23/24 lisinopril 20 mg tablet 20 mg PO QD #30 tabs 02/23/24 hydrocodone 5 mg-acetaminophen 325 1 tab PO Q8H PRN pain 4 days #12 03/25/24 mg tablet tabs Allergies Allergy/AdvReac Type Severity Reaction Status Date / Time metformin AdvReac Severe Flatulence Verified 03/25/24 16:23 prochlorperazine AdvReac Severe Anxiety Verified 03/25/24 16:23 [From Compazine] Opioid HPI Opioid Management Most Recent Opioid Data: Last Pain Scale 7 03/25/24 17:45 Last MAR Pain Assessment 03/25/24 17:45 Last ORT Total Score 1 02/18/24 22:54 Last ORT Risk Category Low Risk 02/18/24 22:54 Review of Systems ROS Constitutional Denies: fever or chills Ears, nose, mouth, and throat Denies: neck pain Cardiovascular Denies: chest pain Respiratory Denies: shortness of breath Gastrointestinal Reports: abdominal pain; Denies: nausea, vomiting or diarrhea Genitourinary Denies: painful urination or blood in urine Musculoskeletal Reports: back pain; Denies: neck pain or extremity pain Neurological Denies: headache or dizziness PFSH PFSH Medical History Neuropathy ?G62.9 - Polyneuropathy, unspecified (ICD-10) GERD (gastroesophageal reflux disease) ?K21.9 - Gastro-esophageal reflux disease without esophagitis (ICD-10) UTI (urinary tract infection) ?N39.0 - Urinary tract infection, site not specified (ICD-10) Sepsis ?A41.9 - Sepsis, unspecified organism (ICD-10) Fibromyalgia ?M79.7 - Fibromyalgia (ICD-10) Hyperlipidemia ?E78.5 - Hyperlipidemia, unspecified (ICD-10) Hypothyroid ?E03.9 - Hypothyroidism, unspecified (ICD-10) Depression ?F32.A - Depression, unspecified (ICD-10) Anxiety ?F41.9 - Anxiety disorder, unspecified (ICD-10) Hypertension ?I10 - Essential (primary) hypertension (ICD-10) Diabetes ?E11.9 - Type 2 diabetes mellitus without complications (ICD-10) Surgical History H/O right heart catheterization ?Z98.890 - Other specified postprocedural states (ICD-10) History of lithotripsy ?Z98.890 - Other specified postprocedural states (ICD-10) H/O colonoscopy ?Z98.890 - Other specified postprocedural states (ICD-10) Family History Mother Family history of cancer Social History Within the past year, how often did you have a drink containing alcohol: never Within the past year, how many standard drinks containing alcohol did you have on a typical day: 1 or 2 Within the past year, how often did you have six or more drinks on one occasion: never Total score: 0 Score interpretation: A score less than 4 is consistent with normal alcohol consumption. Smoking status: Never smoker Non-prescribed substance use: denies use Previous occupational history: disability Highest level of school completed/degree received: high school graduate Are you now , , , , never or living with a partner: In a typical week, how many times do you talk on the telephone with family, friends, or neighbors: twice per week How often do you get together with friends or relatives: twice per week How often do you attend methodist or temple services: 4 or more times per year Do you belong to any clubs or organizations such as methodist groups unions, fraternal or athletic groups, or school groups: no Total score: 2 Score interpretation: A score of greater than or equal to 2 indicates the lowest level of social isolation. Little interest or pleasure in doing things: not at all Feeling down, depressed, or hopeless: several days Feel stressed/tense/nervous/anxious/difficulty sleeping: not at all Gender Identity: male Exam Constitutional Vital Signs, click to edit/add: Last Vital Signs Temp 97.7 F 03/25/24 16:18 Pulse 68 03/25/24 16:18 Resp 16 03/25/24 16:18 BP 140/103 H 03/25/24 16:18 Pulse Ox 98 03/25/24 16:18 O2 Del Method Room Air 03/25/24 16:18 Common normals: no apparent distress and oriented x3 General appearance: cooperative HENMT Common normals: head/scalp atraumatic Eye Common normals: PERRL, EOMs intact bilaterally, conjunctivae normal and no scleral icterus Neck & C-Spine Common normals: supple Cervical spine: no pain with cervical ROM, no cervical spine tenderness, no paracervical muscle tenderness and no paracervical muscle spasm Chest Chest: symmetrical chest wall rise Respiratory Common normals: normal respiratory effort, no retractions and no use of accessory muscles Effort & inspection: symmetric chest movement Cardio Common normals: regular rate and regular rhythm GI Common normals: Normal to inspection, nondistended, normoactive bowel sounds present Palpation: soft and tender Details: LUQ and RUQ; no guarding and not rigid Back & Pelvis Thoracic spine/upper back: normal to inspection and paraspinal muscle tenderness Lumbar spine/lower back: normal to inspection, paraspinal muscle tenderness and paraspinal muscle spasm Neuro Common normals: oriented x3 and moves all extremities Sensorium/orientation: awake and alert Speech: speech normal Gait (neuro): normal gait Course Vital Signs Vital signs: Vital Signs Temperature 97.7 F 03/25/24 16:18 Pulse Rate 68 03/25/24 16:18 Respiratory Rate 16 03/25/24 16:18 Blood Pressure 140/103 H 03/25/24 16:18 Pulse Oximetry 98 03/25/24 16:18 Oxygen Delivery Method Room Air 03/25/24 16:18 Temperature 97.7 F 03/25/24 16:18 Pulse Rate 68 03/25/24 16:18 Respiratory Rate 16 03/25/24 16:18 Blood Pressure 140/103 H 03/25/24 16:18 Pulse Oximetry 98 03/25/24 16:18 Oxygen Delivery Method Room Air 03/25/24 16:18 Medical Decision Making MDM Narrative Medical decision making narrative: X-ray showed a decrease in height of T10 vertebral body which 40% loss of height at the center, which may represent compression fracture. Findings were discussed with the patient. He was given a copy of his x-ray report. He is aware the CT scan machine at [facility] is not available today. He has an order for an outpatient CT scan of his abdomen and is awaiting a call from scheduling. OAR[facility] was reviewed. A prescription was provided for norco. Follow up with pcp and an orthopedist for a recheck, further evaluation and treatment. Medical Records Medical records reviewed: Yes I reviewed the patient's medical records Lab Data Lab results reviewed: Yes I reviewed the patient's lab results Labs: Lab Results 03/25/24 Range/Units 17:26 WBC 6.5 (4.0-11.0) 10^3/uL RBC 3.79 L (4.70-6.10) 10^6/uL Hgb 11.2 L (14.0-18.0) g/dL Hct 34.7 L (42.0-54.0) % MCV 91.6 (80.0-94.0) fL MCH 29.6 (25.9-34.0) pg MCHC 32.3 (29.9-35.2) g/dL RDW 16.2 H (11.0-15.0) % Plt Count 164 (150-450) 10^3/uL MPV 9.7 (9.5-13.5) fL Neut % (Auto) 62.2 (43.0-75.0) % Lymph % (Auto) 20.3 L (20.5-60.0) % Gibson % (Auto) 8.6 (1.7-12.0) % Eos % (Auto) 7.4 H (0.9-7.0) % Baso % (Auto) 1.2 (0.2-2.0) % Neut # (Auto) 4.0 (1.4-6.5) 10^3/uL Lymph # (Auto) 1.3 (1.2-3.8) 10^3/uL Gibson # (Auto) 0.6 (0.3-0.8) 10^3/uL Eos # (Auto) 0.5 (0.0-0.7) 10^3/uL Baso # (Auto) 0.1 (0.0-0.1) 10^3/uL Abs Immat Gran (auto) 0.02 (0.00-0.03) 10^3/uL Imm/Tot Granulo (auto) 0.3 (0.0-0.5) % Sodium 136 (136-145) mmol/L Potassium 4.1 (3.5-5.1) mmol/L Chloride 102 (98-107) mmol/L Carbon Dioxide 30.8 (21.0-32.0) mmol/L Anion Gap 7.3 BUN 20.0 H (7.0-18.0) mg/dL Creatinine 1.19 (0.70-1.30) mg/dL Est GFR ( Amer) >60 (>=60) Est GFR (Non-Af Amer) >60 (>=60) BUN/Creatinine Ratio 16.8 Glucose 161 H (74-106) mg/dL Calcium 8.6 (8.5-10.1) mg/dL Total Bilirubin 0.7 (0.2-1.0) mg/dL AST 29 (15-37) U/L ALT 21 (16-63) U/L Alkaline Phosphatase 210 H (46-116) U/L Total Protein 7.6 (6.4-8.2) g/dL Albumin 2.6 L (3.4-5.0) g/dL Globulin 5.0 g/dL Albumin/Globulin Ratio 0.5 Lipase 61.0 (16.0-77.0) U/L Imaging Data XR: Attestation: I have reviewed the pertinent imaging results. Radiologist's impression: ITS Impressions Lumbar Spine X-Ray 03/25/24 16:28 IMPRESSION: There appears decrease in height of T10 vertebral body which 40% loss of height at the center, may represent compression fracture. No acute displaced rib fracture. Electronically authenticated by: MATIAS ESTEBAN Date: 03/25/2024 18:06 Ribs X-Ray 03/25/24 16:28 IMPRESSION: There appears decrease in height of T10 vertebral body which 40% loss of height at the center, may represent compression fracture. No acute displaced rib fracture. Electronically authenticated by: Zumbl Date: 03/25/2024 18:06 Thoracic Spine X-Ray 03/25/24 16:28 IMPRESSION: There appears decrease in height of T10 vertebral body which 40% loss of height at the center, may represent compression fracture. No acute displaced rib fracture. Electronically authenticated by: MATIAS [employer] Date: 03/25/2024 18:06 Discharge Plan Discharge Stand Alone Forms: Portal Instructions Chief Complaint: Abdominal Pain Clinical Impression: Compression fracture of T10 vertebra, Abdominal pain, Back pain, Chest wall pain Patient Disposition: Home, Self-Care Time of Disposition Decision: 18:52 Condition: Good Mode of Transportation: Private Vehicle Prescriptions / Home Meds: New hydrocodone-acetaminophen 5-325 mg tablet 1 tab PO Q8H PRN (Reason: pain) 4 Days Qty: 12 0RF No Action atorvastatin 40 mg tablet 40 mg PO BEDTIME esomeprazole magnesium 40 mg capsule,delayed release(DR/EC) 40 mg PO Q24H gabapentin 100 mg capsule 100 mg PO BID hydroxyzine HCl 25 mg tablet 25 mg PO QID PRN (Reason: nausea and vomiting) insulin glargine [Lantus Solostar U-100 Insulin] 100 unit/mL (3 mL) insulin pen 40 unit SUBCUT DAILY isosorbide mononitrate 30 mg tablet extended release 24 hr 30 mg PO DAILY levothyroxine 200 mcg tablet 200 mcg PO DAILY liothyronine 5 mcg tablet 5 mcg PO DAILY sertraline 100 mg tablet 100 mg PO DAILY oxycodone-acetaminophen 5-325 mg tablet 1 tab PO QID PRN (Reason: pain) Rx Instructions: per refill hx: last filled 06/18/23 for QTY 60 for 15 days ropinirole 0.5 mg tablet 0.5 mg PO BEDTIME moxifloxacin 0.5 % Drops 1 drp ophthalmic (eye) TID 7 Days Qty: 3 0RF promethazine-DM 6.25-15 mg/5 mL syrup 5 ml PO Q8H PRN (Reason: cough) 3 Days Qty: 118 0RF lisinopril 20 mg Tablet 20 mg PO QD Qty: 30 11RF isosorbide mononitrate 30 mg Tablet Extended Release 24 Hr 30 mg PO QD Qty: 30 11RF Eliquis 5 mg Tablet 2.5 mg PO BID Qty: 60 11RF levofloxacin 500 mg tablet 500 mg PO DAILY 7 Days Qty: 7 0RF Print Language: Armenian Instructions: Vertebral Compression Fracture (ED), Abdominal Pain (ED), Back Pain (ED) Referrals: KATHIA LAZAR [Primary Care Provider] - 1 week Carlos Saul MD [Physician] - 1 week
--- OUTSIDE RECORDS SUMMARY | 2024-03-25 16:31 | XMS_ITS | CCD ---
Author Organization [facility] Inform ion Partnership [facility] Care Team Providers Care Per Diem Rn Name Role Phone JEFF CARLOS Primary Care Physician MD Ayden Freeman Primary Care Provider [phone] Al MD Mary Jane Campbell Admit Provider MD Syed Osunaiz Other Provider MD Xin Phan Attending Provider [phone] DO Jair Gabriel Emergency Provider MD Luke Moran Admit Provider MD Lupe Hernandez Attending Provider DO Ramesh Byrd Emergency Provider [phone] PROVIDER, UNKNOWN Admitting Unavailable PROVIDER, UNKNOWN Attending [...] Unavailable LYDIA, DR AYDEN Haney Consulting Unavailable NADRACHEL, DR AYDEN Haney Primary Care Unavailable NADEREArmida, [...] Attending Unavailable CHIKIS ., HINA Admitting Unavailable NADERER, DR AYDEN Haney Primary Care Unavailable CHIKIS ., HINA Attending Unavailable CHIKIS ., HINA Admitting Unavailable Kequan, Ramesh Haney Attending Unavailable Kequan, Ramesh Haney Admitting Unavailable Naderearmida, Ayden Primary Care Unavailable NADERER, AYDEN Attending Unavailable Allergies Allergy Classification Reported Allergen(s) Allergy Type Date of Onset Reaction(s) Facility (8 sources) metFORMIN; Translations: [metformin] Drug Allergy 2 [facility] (6 sources) Prochlorperazine; Translations: [prochlorperazine] Drug Allergy 2 [facility] (2 sources) Prochlorperazine Drug Allergy The [facility] Repository Medications Current Medications Medication [...] PO Q6H 0 April 04, 2022 12:00am [id number] 200 actuat albuterol 0.09 mg/actuat metered dose [...] by mouth four times daily Hydrocodone-Aceta minophen ([place]) 5-325 mg Tablet Discontinued 1 TAB PO [...] dose SUBCUT Before meals and at bedtime March 16, 2022 12:00am April 09, 2022 12:27pm Sliding Scale ACHS nystatin [id number] unt/ml oral suspension (10 sources) Polyene Antifungal [...] disease (1 source) Atherosclerotic heart disease of [place] coronary artery without angina pectoris; 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 PECTORIS] Onset: 05-20-2022 Chronic [...] 05-29-2022 Chronic Other aftercare (1 source) Other long term care pharmacist (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; Translations: [OTH GOVERNMENT GUARD CURRENT DRUG THERAPY] Onset: 12-22-2022 Episodic Other [...] Onset: 01-28-2022 Episodic Other aftercare (1 source) care home (current) use of insulin; Translations: [GOVERNMENT GUARD CURRENT USE OF INSULIN] Onset: 05-20-2022 Episodic [...] Test Name Value Interpretation Reference Range Facility Provider Letteron 03-15-2024 Provider Letter Provider Letter March 15, 2024 EVELIN PATTERSON [address] [place] [address] [address] [place] [address] : 1955 Dear Evelin , We have been trying to reach you with no success. It is important that you return our call regarding a referral upon receiving this letter. Also, at the time of your call, please provide us with your current information. Thank you for your prompt attention to this matter. Sincerely, Dr. Javid Haynes MD General Surgery [facility] CBC AUTO DIFFon 12-19-2022 BASO # 0.1 103/ul Normal 0.0-0.1 [facility] Comment on above: Performed By: #### T SH, BMP #### [facility] [address] [place] [address] Dr. Ladan Diehl Basophils/100 WBC (Bld) 1.2 % Normal 0.2-2.0 [facility] Comment on above: Performed By: #### T SH, BMP #### [facility] [address] [place] [address] Dr. Ladan Diehl EO # 0.4 103/ul Normal 0.0-0.7 [facility] Comment on above: Performed By: #### T SH, BMP #### [facility] [address] [place] [address] Dr. Ladan Diehl Eosinophils/100 WBC (Bld) 4.9 % Normal 0.9-7.0 [facility] Comment on above: Performed By: #### T SH, BMP #### [facility] [address] [place] [address] Dr. Ladan Diehl Erythrocyte distribution width (RBC) [Ratio] 14.8 % Normal 11.0-15.0 [facility] Comment on above: Performed By: #### T SH, BMP #### [facility] [address] [place] [address] Dr. Ladan Diehl Hematocrit (Bld) [Volume fraction] 36.7 % Critically low 42.0-54.0 [facility] Comment on above: Performed By: #### T SH, BMP #### [facility] [address] [place] [address] Dr. Ladan Diehl Hemoglobin (Bld) [Mass/Vol] 12.0 g/dL Critically low 14.0-18.0 [facility] Comment on above: Performed By: #### T SH, BMP #### [facility] [address] [place] [address] Dr. Ladan Diehl IG # 0.01 10e3/ul Normal 0.00-0.03 [facility] Comment on above: Performed By: #### T SH, BMP #### [facility] [address] [place] [address] Dr. Ladan Diehl IG % 0.1 % Normal 0.0-0.5 [facility] Comment on above: Performed By: #### T STEFF, BMP #### [facility] [address] [place] [address] Dr. Ladan Diehl LYMPH # 2.0 103/ul Normal 1.2-3.8 [facility] Comment on above: Performed By: #### T STEFF, BMP #### [facility] [address] [place] [address] Dr. Ladan Diehl Lymphocytes/100 WBC (Bld) 27.1 % Normal 20.5-60.0 [facility] Comment on above: Performed By: #### T STEFF, BMP #### [facility] [address] [place] [address] Dr. Ladan Diehl MANUAL DIFF REQ NO Normal [facility] Comment on above: Performed By: #### T STEFF, BMP #### [facility] [address] [place] [address] Dr. Ladan Diehl MCH (RBC) [Entitic mass] 29.6 pg Normal 25.9-34.0 [facility] Comment on above: Performed By: #### T SH, BMP #### [facility] [address] [place] [address] Dr. Ladan Diehl MCHC (RBC) [Mass/Vol] 32.7 g/dL Normal 29.9-35.2 [facility] Comment on above: Performed By: #### T STEFF, BMP #### [facility] [address] [address] [address] Ladan Diehl MCV (RBC) [Entitic vol] 90.6 fL Normal 80.0-94.0 [facility] Comment on above: Performed By: #### T SH, BMP #### [facility] [address] [place] [address] Dr. Ladan Diehl MONO # 0.8 103/ul Normal 0.3-0.8 [facility] Comment on above: Performed By: #### T SH, BMP #### [facility] [address] [place] [address] Dr. Ladan Diehl Monocytes/100 WBC (Bld) 10.4 % Normal 1.7-12.0 [facility] Comment on above: Performed By: #### T SH, BMP #### [facility] [address] [place] [address] Dr. Ladan Diehl NEUT # 4.2 103/ul Normal 1.4-6.5 [facility] Comment on above: Performed By: #### T SH, BMP #### [facility] [address] [place] [address] Dr. Ladan Diehl Neutrophils/100 WBC (Bld) 56.3 % Normal 43.0-75.0 [facility] Comment on above: Performed By: #### T SH, BMP #### [facility] [address] [place] [address] Dr. Ladan Diehl Platelet mean volume (Bld) [Entitic vol] 9.9 fL Normal 9.5-13.5 [facility] Comment on above: Performed By: #### T SH, BMP #### [facility] [address] [place] [address] Dr. Ladan Diehl PLT 227 103/ul Normal 150-450 [facility] Comment on above: Performed By: #### T SH, BMP #### [facility] [address] [place] [address] Dr. Ladan Diehl RBC 4.05 106/ul Critically low 4.70-6.10 [facility] Comment on above: Performed By: #### T SH, BMP #### [facility] [address] [place] [address] Dr. Ladan Diehl WBC 7.4 103/ul Normal 4.0-11.0 [facility] Comment on above: Performed By: #### T SH, BMP #### [facility] [address] [place] [address] Dr. Ladan Diehl FREE T3on 12-19-2022 FREE T3 2.07 pg/mlL Critically low 2.18-3.98 [facility] Comment on above: Performed By: #### T SH, BMP #### [facility] [address] [place] [address] Dr. Ladan Diehl FREE T4on 12-19-2022 Free T4 [Mass/Vol] 1.14 ng/dL Normal 0.76-1.46 [facility] Comment on above: Performed By: #### T STEFF, BMP #### [facility] [address] [place] [address] Dr. Ladan Diehl GLYCOHEMOGLOBIN A1Con 2022 ADA RECOMMENDATION SEE BELOW Normal [facility] Comment on above: Result Comment: ADA RECOMMENDED LIMIT 4.0 - 6.0 ADA THERAPEUTIC TARGET < 7.0 ACTION SUGGESTED > 7.0 Performed By: #### T STEFF, BMP #### [facility] [address] [place] [address] Dr. Ladan Diehl Glucose [Mass/Vol] 134 mg/dL Normal [facility] Comment on above: Performed By: #### T STEFF, BMP #### [facility] [address] [place] [address] Dr. Ladan Diehl HbA1c (Bld) [Mass fraction] 6.3 % Critically high 4.5-6.2 [facility] Comment on above: Performed By: #### T STEFF, BMP #### [facility] [address] [place] [address] Dr. Ladan Diehl LIPID PROFILEon 12-19-2022 CHOL-HDL RATIO NORM SEE BELOW Normal [facility] Comment on above: Result Comment: 3.3 - 4.4 LOW RISK 4.4 - 7.1 AVERAGE RISK 7.1 - 11.0 MODERATE RISK >11.0 HIGH RISK Performed By: #### T SH, BMP #### [facility] [address] [address] [address] Ladan Diehl Cholesterol [Mass/Vol] 118 mg/dL Normal <=200 [facility] Comment on above: Performed By: #### T SH, BMP #### [facility] [address] [address] [address] Ladan Diehl Cholesterol in HDL [Mass/Vol] 43 mg/dL Normal 40-60 [facility] Comment on above: Performed By: #### T SH, BMP #### [facility] [address] [address] [address] Ladan Diehl Cholesterol in LDL [Mass/Vol] 48.8 mg/dL Normal [facility] Comment on above: Performed By: #### T SH, BMP #### [facility] [address] [place] [address] Dr. Ladan Diehl Cholesterol.total/Choles terol in HDL [Mass ratio] 2.7 {ratio} Normal [facility] Comment on above: Performed By: #### T SH, BMP #### [facility] [address] [address] [address] Ladan Diehl HDL NORMAL > or = 60 mg/dl - LOW CARDIOVASCULAR RISK <40 mg/dl - HIGH CARDIOVASCULAR RISK Normal [facility] Comment on above: Performed By: #### T SH, BMP #### [facility] [address] [address] [address] Ladan Diehl LDL CALC NORMAL SEE BELOW Normal [facility] Comment on above: Result Comment: <100 mg/dl OPTIMAL 100 - 129 mg/dl NEAR OR ABOVE OPTIMAL 130 - 159 mg/dl BORDERLINE HIGH 160 - 189 mg/dl HIGH >190 mg/dl VERY HIGH Performed By: #### T SH, BMP #### [facility] [address] [address] [address] Ladan Diehl Triglyceride [Mass/Vol] 131 mg/dL Normal <=150 [facility] Comment on above: Performed By: #### T SH, BMP #### [facility] [address] [address] [address] Ladan Diehl VLDL CALC 26.2 mg/dL Normal [facility] Comment on above: Performed By: #### T SH, BMP #### [facility] [address] [place] [address] Dr. Ladan Diehl LIVER PROFILEon 12-19-2022 Albumin [Mass/Vol] 2.7 g/dL Critically low 3.4-5.0 Th e [facility] Comment on above: Performed By: #### T SH, BMP #### [facility] [address] [place] [address] Dr. Ladan Diehl Albumin/Globulin [Mass ratio] 0.4 {ratio} Normal [facility] Comment on above: Performed By: #### T STEFF, BMP #### [facility] [address] [place] [address] Dr. Ladan Diehl ALP [Catalytic activity/Vol] 154 U/L Critically high 46-116 [facility] Comment on above: Performed By: #### T STEFF, BMP #### [facility] [address] [place] [address] Dr. Ladan Diehl ALT [Catalytic activity/Vol] 25 U/L Normal 16-63 [facility] Comment on above: Performed By: #### T STEFF, BMP #### [facility] [address] [place] [address] Dr. Ladan Diehl AST [Catalytic activity/Vol] 38 U/L Critically high 15-37 [facility] Comment on above: Performed By: #### T STEFF, BMP #### [facility] [address] [place] [address] Dr. Ladan Diehl BILI, CONJUGATED 0.2 mg/dL Normal 0.0-0.2 [facility] Comment on above: Performed By: #### T SH, BMP #### [facility] [address] [place] [address] Dr. Ladan Diehl Bilirubin [Mass/Vol] 0.8 mg/dL Normal 0.2-1.0 [facility] Comment on above: Performed By: #### T STEFF, BMP #### [facility] [address] [place] [address] Dr. Ladan Diehl Globulin (S) [Mass/Vol] 6.2 g/dL Normal [facility] Comment on above: Performed By: #### T SH, BMP #### [facility] [address] [place] [address] Dr. Ladan Diehl Protein [Mass/Vol] 8.9 g/dL Critically high 6.4-8.2 [facility] Comment on above: Performed By: #### T SH, BMP #### [facility] [address] [place] [address] Dr. Ladan Diehl MICROALBUMIN, RAND URon 12-09 mALB 25.4 mg/dL Normal <=30.0 [facility] Comment on above: Performed By: #### T SH, BMP #### [facility] [address] [place] [address] Dr. Ladan Diehl PROF CHEM 8 (BAS METB)on Anion gap [Moles/Vol] 10.7 mmol/L Normal [facility] Comment on above: Performed By: #### T SH, BMP #### [facility] [address] [place] [address] Dr. Ladan Diehl Calcium [Mass/Vol] 9.0 mg/dL Normal 8.5-10.1 [facility] Comment on above: Performed By: #### T SH, BMP #### [facility] [address] [place] [address] Dr. Ladan Diehl Chloride [Moles/Vol] 103 mmol/L Normal 98-107 [facility] Comment on above: Performed By: #### T SH, BMP #### [facility] [address] [place] [address] Dr. Ladan Diehl CO2 [Moles/Vol] 27.5 mmol/L Normal 21.0-32.0 [facility] Comment on above: Performed By: #### T SH, BMP #### [facility] [address] [place] [address] Dr. Ladan Diehl Creatinine [Mass/Vol] 1.29 mg/dL Normal 0.70-1.30 [facility] Comment on above: Performed By: #### T SH, BMP #### [facility] [address] [address] [address] Ladan Diehl EGFR-AF BAHAMIAN >60 Normal >=60 [facility] Comment on above: Performed By: #### T SH, BMP #### [facility] [address] [address] [address] Ladan Diehl EGFR-NON AF BAHAMIAN 56 mL/min/1.73m2 Critically low >=60 [facility] Comment on above: Performed By: #### T SH, BMP #### [facility] [address] [address] [address] Ladan Diehl Glucose [Mass/Vol] 108 mg/dL Critically high 74-106 [facility] Comment on above: Performed By: #### T SH, BMP #### [facility] [address] [place] [address] Dr. Ladan Diehl Potassium [Moles/Vol] 4.2 mmol/L Normal 3.5-5.1 [facility] Comment on above: Performed By: #### T SH, BMP #### [facility] [address] [address] [address] Ladan Diehl Sodium [Moles/Vol] 137 mmol/L Normal 136-145 [facility] Comment on above: Performed By: #### T SH, BMP #### [facility] [address] [place] [address] Dr. Ladan Diehl Urea nitrogen [Mass/Vol] 12.0 mg/dL Normal 7.0-18.0 [facility] Comment on above: Performed By: #### T SH, BMP #### [facility] [address] [address] [address] Ladan Diehl Urea nitrogen/Creatinine [Mass ratio] 9.3 mg/mg Normal [facility] Comment on above: Performed By: #### T SH, BMP #### [facility] [address] [address] [address] Ladan Diehl TSHon 12-19-2022 TSH 8.668 uIU/mL Critically high 0.358-3.740 [facility] Comment on above: Performed By: #### T SH, BMP #### [facility] [address] [address] [address] Ladan Diehl GLYCOHEMOGLOBIN A1Con 2021 ADA RECOMMENDATION SEE BELOW Normal [facility] Comment on above: Result Comment: ADA RECOMMENDED LIMIT 4.0 - 6.0 ADA THERAPEUTIC TARGET < 7.0 ACTION SUGGESTED > 7.0 Performed By: #### A 1C #### [facility] [address] [address] [address] Ladan Diehl Glucose [Mass/Vol] 140 mg/dL Normal [facility] Comment on above: Performed By: #### A 1C #### [facility] [address] [address] [address] Ladan Diehl HbA1c (Bld) [Mass fraction] 6.5 % Critically high 4.5-6.2 [facility] Comment on above: Performed By: #### A 1C #### [facility] [address] [address] CSPINE WO CONon [...] CAROL YIP Date: 2022-05-17 13:25 Normal The [facility] CT HEAD WO CONon 05-17-2022 [...] by: CAROL YIP Date: 2022-05-17 13:07 Normal [facility] XR CHEST 1 Von 05-17-2022 XR CHEST [...] by: ABBIE AMBROCIO Date: 2022-05-17 12:53 Normal [facility] Progress Noteson 05-03-2022 Ruffling [employer]mer Automatic Authentication Interface Message Text EMERGENCY TRIAGE, TREAT AND TRANSPORT (ET3) DOCUMENTATION OF TELEHEALTH VISIT Date / Time: 05/01/2022599 Name: Evelin Patterson : 1955 SSN: [id number] EMS Agency: [facility] [x] Verbal consent obtained [] Implied [...] Completed by: Peter Molina, DO Normal [facility] Activated partial thrombopla stin time (aPTT) in platelet poor plasma by coagulation aOrdered By: Ramesh Byrd on 04-12-2022 aPTT Coag (PPP) [Time] 24.8 s 25.1-36.5 [facility] Automated erythrocytes count in urine sediment [...] on above: Result Comment: PERF ORMED BY: [facility] [address] [place] [address] PATHOLOGIST SALES MANAGER CHARLENE HERNANDEZ M.D. Performed By: #### C MP, TSH3, PT, HS TROP, PTT, BNP, MG, CBC #### [facility] [address] Basophils Auto (Bld) [#/Vol] Ordered By: Ramesh Byrd on 04-12-2022 Basophils (Bld) [#/Vol] 0.0 10*3/uL 0.0-0.[address] [facility] Basophils/100 WBC Auto (Bld) Ordered By: Ramesh Byrd on 04-12-2022 Basophils/100 WBC (Bld) 0.6 % . [facility] Bilirubin Test strip Ql (U)O rdered By: Ramesh Byrd on 04-12-2022 Bilirubin Ql (U) Negative Negative [facility] Blood hemoglobin measurement (mass/volume)Ordered By: Ramesh Byrd on 04-12-2022 Hemoglobin (Bld) [Mass/Vol] 12.2 g/dL 13.0-17.[address] [facility] Blood leukocytes automated c ount (number/volume)Ordered By: Ramesh Byrd on 04-12-2022 WBC (Bld) [#/Vol] 6.4 10*3/uL 4.5-11.0 [facility] Body fluid albumin measureme nt (mass/volume)Ordered [...] on above: Result Comment: PERF ORMED BY: [place] [address] PATHOLOGIST SALES MANAGER CHARLENE HERNANDEZ M.D. Performed By: #### C MP, TSH3, PT, HS TROP, PTT, BNP, MG, CBC #### [address] Basophils/100 WBC (Bld) 0.6 % Normal . [facility] Comment on above: Performed By: #### C MP, TSH3, PT, HS TROP, PTT, BNP, MG, CBC #### [address] Eosinophils (Bld) [#/Vol] 0.2 10*3/uL Normal 0.0-0.[address] [facility] Comment on above: Performed By: #### C MP, TSH3, PT, HS TROP, PTT, BNP, MG, CBC #### [address] Eosinophils/100 WBC (Bld) 2.7 % Normal . [facility] Comment on above: Performed By: #### C MP, TSH3, PT, HS TROP, PTT, BNP, MG, CBC #### [address] Erythrocyte distribution width (RBC) [Ratio] 16.7 % High 12.0-14.[address] [facility] Comment on above: Performed By: #### C MP, TSH3, PT, HS TROP, PTT, BNP, MG, CBC #### [address] Hematocrit (Bld) [Volume fraction] 36.7 % Low 38.8-50.[address] [facility] Comment on above: Performed By: #### C MP, TSH3, PT, HS TROP, PTT, BNP, MG, CBC #### [place] [address] Hemoglobin (Bld) [Mass/Vol] 12.2 g/dL Low 13.0-17.[address] [facility] Comment on above: Performed By: #### C MP, TSH3, PT, HS TROP, PTT, BNP, MG, CBC #### [address] Lymphocytes (Bld) [#/Vol] 1.0 10*3/uL Normal 1.00-4.[address] [facility] Comment on above: Performed By: #### C MP, TSH3, PT, HS TROP, PTT, BNP, MG, CBC #### [address] Lymphocytes/100 WBC (Bld) 16.1 % Normal . [facility] Comment on above: Performed By: #### C MP, TSH3, PT, HS TROP, PTT, BNP, MG, CBC #### [address] MCH (RBC) [Entitic mass] 31.0 pg Normal 27.5-35.[address] [facility] Comment on above: Performed By: #### C MP, TSH3, PT, HS TROP, PTT, BNP, MG, CBC #### [address] MCV (RBC) [Entitic vol] 93.5 fL Normal 83.5-101 [facility] Comment on above: Performed By: #### C MP, TSH3, PT, HS TROP, PTT, BNP, MG, CBC #### [address] Mean Corpuscular HGB Conc 33.1 g/dL Normal 32.5-35.[address] [facility] Comment on above: Performed By: #### C MP, TSH3, PT, HS TROP, PTT, BNP, MG, CBC #### [address] Monocytes (Bld) [#/Vol] 0.8 10*3/uL Normal 0.0-0.[address] [facility] Comment on above: Performed By: #### C MP, TSH3, PT, HS TROP, PTT, BNP, MG, CBC #### [facility] [address] [place] [address] [place] Monocytes/100 WBC (Bld) 12.0 % Normal . [facility] Comment on above: Performed By: #### C MP, TSH3, PT, HS TROP, PTT, BNP, MG, CBC #### [facility] [address] [place] [address] [place] Neutrophils (Bld) [#/Vol] 4.4 10*3/uL Normal 1.8-7.[address] [facility] Comment on above: Performed By: #### C MP, TSH3, PT, HS TROP, PTT, BNP, MG, CBC #### [facility] [address] Neutrophils/100 WBC (Bld) 68.6 % Normal . [facility] Comment on above: Performed By: #### C MP, TSH3, PT, HS TROP, PTT, BNP, MG, CBC #### [facility] [address] [place] [address] [place] Nucleated RBC/100 WBC (Bld) [Ratio] 0.1 % Normal 0-0.[address] [facility] Comment on above: Performed By: #### C MP, TSH3, PT, HS TROP, PTT, BNP, MG, CBC #### [facility] [address] Platelet mean volume (Bld) [Entitic vol] 8.0 fL Normal 6.6-10.[address] [facility] Comment on above: Performed By: #### C MP, TSH3, PT, HS TROP, PTT, BNP, MG, CBC #### [facility] [facility] [address] [place] [address] [place] Platelets (Bld) [#/Vol] 191 10*3/uL Normal 150-[address] [facility] Comment on above: Performed By: #### C MP, TSH3, PT, HS TROP, PTT, BNP, MG, CBC #### [facility] [address] [place] [address] [place] RBC (Bld) [#/Vol] 3.93 10*6/uL Normal 3.90-5.60 [facility] Comment on above: Performed By: #### C MP, TSH3, PT, HS TROP, PTT, BNP, MG, CBC #### [facility] [address] WBC (Bld) [#/Vol] 6.4 10*3/uL Normal 4.5-11.0 [facility] Comment on above: Performed By: #### C MP, TSH3, PT, HS TROP, PTT, BNP, MG, CBC #### [facility] [address] Comprehensive Metabolic Pane xavier 04-12-2022 Albumin [Mass/Vol] 2.3 g/dL Low 3.2-5.5 [facility] Comment on above: Performed By: #### C MP, TSH3, PT, HS TROP, PTT, BNP, MG, CBC #### [address] Albumin/Globulin [Mass ratio] 0.5 {ratio} Normal [facility] Comment on above: Performed By: #### C MP, TSH3, PT, HS TROP, PTT, BNP, MG, CBC #### [address] ALP [Catalytic activity/Vol] 97 U/L High 32-[address] [facility] Comment on above: Performed By: #### C MP, TSH3, PT, HS TROP, PTT, BNP, MG, CBC #### [address] ALT [Catalytic activity/Vol] 34 U/L Normal 10-[address] [facility] Comment on above: Performed By: #### C MP, TSH3, PT, HS TROP, PTT, BNP, MG, CBC #### [address] Anion gap [Moles/Vol] 17.1 mmol/L High 6.0-15.0 [facility] Comment on above: Performed By: #### C MP, TSH3, PT, HS TROP, PTT, BNP, MG, CBC #### [facility] [address] AST [Catalytic activity/Vol] 136 U/L High 10-[address] [facility] Comment on above: Performed By: #### C MP, TSH3, PT, HS TROP, PTT, BNP, MG, CBC #### [address] Bilirubin [Mass/Vol] 1.3 mg/dL High 0.3-1.2 [facility] Comment on above: Result Comment: Samp les from patients who have taken Naproxen have shown spurious elevation in Total Bilirubin levels. A metabolite of Naproxen, O-desmethylnaproxen, has been shown to interfere with the Jendrassik-Grof method for measuring Total Bilirubin. Performed By: #### C MP, TSH3, PT, HS TROP, PTT, BNP, MG, CBC #### [address] Calcium [Mass/Vol] 8.6 mg/dL Normal 8.2-10.2 [facility] Comment on above: Performed By: #### C MP, TSH3, PT, HS TROP, PTT, BNP, MG, CBC #### [address] Chloride [Moles/Vol] 97 mmol/L Normal 95-114 [facility] Comment on above: Performed By: #### C MP, TSH3, PT, HS TROP, PTT, BNP, MG, CBC #### [facility] [address] CO2 [Moles/Vol] 25.4 mmol/L Normal 22.0-30.0 [facility] Comment on above: Performed By: #### C MP, TSH3, PT, HS TROP, PTT, BNP, MG, CBC #### [address] Creatinine [Mass/Vol] 1.14 mg/dL Normal 0.64-1.27 [facility] Comment on above: Performed By: #### C MP, TSH3, PT, HS TROP, PTT, BNP, MG, CBC #### [facility] [address] Creatinine Clr Calc Pharmacy 97.67 [facility] Comment on above: Performed By: #### C MP, TSH3, PT, HS TROP, PTT, BNP, MG, CBC #### [facility] [address] Estimated GFR ( Lilibeth > 60 [facility] Comment on above: Result Comment: GFR estimated reference range: According to KDOQI guidelines, <60 ml/min/1.73m2 is sufficient to diagnose a patient with chronic kidney disease. Performed By: #### C MP, TSH3, PT, HS TROP, PTT, BNP, MG, CBC #### [facility] [address] Estimated GFR (Non- Am > 60 [facility] Comment on above: Performed By: #### C MP, TSH3, PT, HS TROP, PTT, BNP, MG, CBC #### [facility] [address] Globulin (S) [Mass/Vol] 4.7 g/dL Normal [facility] Comment on above: Performed By: #### C MP, TSH3, PT, HS TROP, PTT, BNP, MG, CBC #### [facility] [address] Glucose [Mass/Vol] 164 mg/dL High 70-100 [facility] Comment on above: Result Comment: [place] Glucose Reference Range is dependent on time and content of last meal. Glucose of more than 200 mg/dL in a nonstressed, ambulatory subject supports the diagnosis of Diabetes Mellitus. ADA recommended reference range Performed By: #### C MP, TSH3, PT, HS TROP, PTT, BNP, MG, CBC #### [facility] [address] Potassium [Moles/Vol] 3.5 mmol/L Normal 3.5-5.1 [facility] Comment on above: Performed By: #### C MP, TSH3, PT, HS TROP, PTT, BNP, MG, CBC #### [address] Protein [Mass/Vol] 7.0 g/dL Normal 6.1-7.9 [facility] Comment on above: Performed By: #### C MP, TSH3, PT, HS TROP, PTT, BNP, MG, CBC #### [facility] [address] Sodium [Moles/Vol] 136 mmol/L Normal 136-146 [facility] Comment on above: Performed By: #### C MP, TSH3, PT, HS TROP, PTT, BNP, MG, CBC #### [address] Urea nitrogen [Mass/Vol] 13 mg/dL Normal 9-[address] [facility] Comment on above: Performed By: #### C MP, TSH3, PT, HS TROP, PTT, BNP, MG, CBC #### [address] Creatinine and Glomerular fi ltration rate.predicted panel (S/P/Bld)Ordered By: Ramesh Byrd on 04-12-2022 Creatinine [Mass/Vol] 1.14 mg/dL 0.64-1.27 [facility] Dipstick and Microscopicon 0 04-12-2022 Appearance (U) Clear Normal Clear [facility] Comment on above: Order Comment: Name Collection Type:: Clean-Voided Midstream Performed By: #### A DDONUAPLUS #### [address] Bacteria,Urine None Seen Normal None Seen [facility] Comment on above: Order Comment: Name Collection Type:: Clean-Voided Midstream Performed By: #### A DDONUAPLUS #### [address] Bilirubin,Urine Negative Normal Negative [facility] Comment on above: Order Comment: Name Collection Type:: Clean-Voided Midstream Performed By: #### A DDONUAPLUS #### [address] [place] [address] [place] Color (U) Yellow Normal Yellow [facility] Comment on above: Order Comment: Name Collection Type:: Clean-Voided Midstream Performed By: #### A DDONUAPLUS #### [facility] [address] [place] [id number] [place] Glucose Ql (U) Normal Normal Normal [facility] Comment on above: Order Comment: Name Collection Type:: Clean-Voided Midstream Performed By: #### A DDONUAPLUS #### [facility] [address] [place] [address] [place] Hyaline Casts,Urine 0-8 Normal 0-8 [facility] Comment on above: Order Comment: Name Collection Type:: Clean-Voided Midstream Result Comment: PERF ORMED BY: [place] [address] PATHOLOGIST SALES MANAGER CHARLENE HERNANDEZ M.D. Performed By: #### A DDONUAPLUS #### [facility] [address] [place] [address] [place] Ketones Ql (U) Trace High Negative [facility] Comment on above: Order Comment: Name Collection Type:: Clean-Voided Midstream Performed By: #### A DDONUAPLUS #### [place] [address] [place] Leukocyte esterase Test strip Ql (U) Negative Normal Negative [facility] Comment on above: Order Comment: Name Collection Type:: Clean-Voided Midstream Performed By: #### A DDONUAPLUS #### [facility] [address] [place] [address] [place] Nitrite,Urine Negative Normal Negative [facility] Comment on above: Order Comment: Name Collection Type:: Clean-Voided Midstream Performed By: #### A DDONUAPLUS #### [facility] [address] [place] [address] [place] Occult Blood,Urine 2+ High Negative [facility] Comment on above: Order Comment: Name Collection Type:: Clean-Voided Midstream Result Comment: PERF ORMED BY: [address] [place] [address] PATHOLOGIST SALES MANAGER CHARLENE HERNANDEZ M.D. Performed By: #### A DDONUAPLUS #### [address] pH (U) 6.5 [pH] Normal 5.0-9.[address] [facility] Comment on above: Order Comment: Name Collection Type:: Clean-Voided Midstream Performed By: #### A DDONUAPLUS #### [address] Protein (U) [Mass/Vol] 100 mg/dL High Negative [facility] Comment on above: Order Comment: Name Collection Type:: Clean-Voided Midstream Performed By: #### A DDONUAPLUS #### [address] RBC,Urine 20-49 High 0-[address] [facility] Comment on above: Order Comment: Name Collection Type:: Clean-Voided Midstream Performed By: #### A DDONUAPLUS #### [address] Specificy [place],Urine 1.020 Normal 1.001-1.[address] [facility] Comment on above: Order Comment: Name Collection Type:: Clean-Voided Midstream Performed By: #### A DDONUAPLUS #### [address] Squamous Epithelial Cell,Urine 0-1 Normal 0-[address] [facility] Comment on above: Order Comment: Name Collection Type:: Clean-Voided Midstream Performed By: #### A DDONUAPLUS #### [place] [address] [place] Urobilinogen,Urine Normal Normal Normal [facility] Comment on above: Order Comment: Name Collection Type:: Clean-Voided Midstream Performed By: #### A DDONUAPLUS #### [place] [address] [place] WBC,Urine 1-2 Normal 0-[address] [facility] Comment on above: Order Comment: Name Collection Type:: Clean-Voided Midstream Performed By: #### A DDONUAPLUS #### [address] ECG 12 lead ECGon 04-12-2022 ECG 12 lead ECG [facility] [address] [place] [address] Electrocardiograph Report Signed Patient: Evelin Patterson MR#: [id number] 005 : 1955 Acct:[id number] Age/Sex: 66 / M ADM Date: 04/12/22 Loc: ER Room: Type: [facility] ER Attending Dr: Ordering Provider: Ramesh [...] Prolonged QT Confirmed by Ramesh BYRD DO ([id number]) on 04/12/2022 4:38:01 PM Referred By: Electronically [...] 04-12-2022 Globulin (S) [Mass/Vol] 4.7 g/dL [facility] Glucose Glucometer (BldC) [M ass/Vol]Ordered By: Ramesh Byrd on 04-12-2022 Glucose [Mass/Vol] 168 mg/dL [facility] Comment on above: Random Glucose Refer ence Range is dependent on time and content of last meal. Glucose of more than 200 mg/dL in a nonstressed, ambulatory subject supports the diagnosis of Diabetes Mellitus. Glucose Poct Glucometerson 0 04-12-2022 Glucose [Mass/Vol] 168 mg/dL Normal [facility] Comment on above: Result Comment: [place] om Glucose Reference Range is dependent on time and content of last meal. Glucose of more than 200 mg/dL in a nonstressed, ambulatory subject supports the diagnosis of Diabetes Mellitus. PERFORMED BY: [facility] [address] [place] [address] PATHOLOGIST SALES MANAGER CHARLENE HERNANDEZ M.D. Performed By: #### G CARMEN #### Point of Care testing , Hematocrit Auto (Bld) [Volum e fraction]Ordered By: Ramesh Byrd on 04-12-2022 Hematocrit (Bld) [Volume fraction] 36.7 % 38.8-50.[address] [facility] Ketones Auto test strip (U) [Mass/Vol]Ordered By: Ramesh Byrd on 04-12-2022 Ketones (U) [Mass/Vol] Trace Negative [facility] - Chemistry and C hemistry - challengeOrdered By: Ramesh Byrd on 04-12-2022 Magnesium [Mass/Vol] 1.3 mg/dL 1.6-2.6 [facility] Natriuretic peptide B (Bld) [Mass/Vol] 196.0 pg/mL 5-[address] [facility] Laboratory - CoagulationOrde red By: Ramesh Byrd on 04-12-2022 PT Coag (PPP) [Time] 12.5 s 9.0-12.9 [facility] Laboratory - Hematology and Cell countsOrdered [...] MCHC (RBC) [Mass/Vol] 33.1 g/dL 32.5-35.6 [facility] MCV Auto (RBC) [Entitic vol] Ordered By: Ramesh Byrd on 04-12-2022 MCV (RBC) [Entitic vol] 93.5 fL 83.5-101 [facility] Magnesiumon 04-12-2022 Magnesium [Mass/Vol] 1.3 mg/dL Low 1.6-2.6 [facility] Comment on above: Performed By: #### G LULS #### Point of Care testing , Monocytes Auto (Bld) [#/Vol] Ordered By: Ramesh Byrd on 04-12-2022 Monocytes (Bld) [#/Vol] 0.8 10*3/uL 0.0-0.[address] [facility] Monocytes/100 WBC Auto (Bld) Ordered By: Ramesh Byrd on 04-12-2022 Monocytes/100 WBC (Bld) 12.0 % . [facility] Neutrophils Auto (Bld) [#/Vo l]Ordered By: Ramesh [...] Coag (Bld) [Time] 24.8 s Low 25.1-36.5 [facility] Comment on above: Result Comment: PERF ORMED BY: [place] [address] PATHOLOGIST SALES MANAGER CHARLENE HERNANDEZ M.D. Performed By: #### C MP, TSH3, PT, HS TROP, PTT, BNP, MG, CBC #### [facility] [address] Platelet mean volume Auto (B ld) [...] 04-12-2022 Protein (U) [Mass/Vol] 100 mg/dL Negative [facility] Protein [Mass/volume] in Ser um or PlasmaOrdered By: Ramesh Byrd on 04-12-2022 Protein [Mass/Vol] 7.0 g/dL 6.1-7.9 [facility] Prothrombin Time INRon 04-12 INR Coag [...] HS TROP, PTT, BNP, MG, CBC #### [facility] [address] PT Coag (PPP) [Time] 12.5 s Normal 9.0-12.9 [facility] Comment on above: Performed By: #### C MP, TSH3, PT, HS TROP, PTT, BNP, MG, CBC #### [facility] [address] RBC Auto (Bld) [#/Vol]Ordere d By: Ramesh Byrd on 04-12-2022 RBC (Bld) [#/Vol] 3.93 10*6/uL 3.90-5.60 [facility] Serum or plasma alanine vivas otransferase measurement without P-5'-P (enzymatic activiOrdered By: Ramesh Byrd on 04-12-2022 ALT No additional P-5'-P [Catalytic activity/Vol] 34 U/L 10-60 [facility] Serum or plasma albumin/glob ulin mass [...] 04-12-2022 Anion gap [Moles/Vol] 17.1 mmol/L 6.0-15.0 [facility] Serum or plasma aspartate am inotransferase measurement (enzymatic activity/volume)Ordered By: Ramesh Byrd on 04-12-2022 AST [Catalytic activity/Vol] 136 U/L 10-[address] [facility] Serum or plasma calcium osbaldo urement (mass/volume)Ordered By: Ramesh Byrd on 04-12-2022 Calcium [Mass/Vol] 8.6 mg/dL 8.2-10.2 [facility] Serum or plasma chloride judith surement (moles/volume)Ordered By: Ramesh Byrd on 04-12-2022 Chloride [Moles/Vol] 97 mmol/L 95-114 [facility] Serum or plasma glucose osbaldo urement (mass/volume)Ordered By: Ramesh Byrd on 04-12-2022 Glucose [Mass/Vol] 164 mg/dL 70-100 [facility] Comment on above: ADA recommended refe rence range Random Glucose Reference Range is dependent on time and content of last meal. Glucose of more than 200 mg/dL in a nonstressed, ambulatory subject supports the diagnosis of Diabetes Mellitus. Serum or plasma potassium me asurement (moles/volume)Ordered By: Ramesh Byrd on 04-12-2022 Potassium [Moles/Vol] 3.5 mmol/L 3.5-5.1 [facility] Serum or plasma sodium measu rement (moles/volume)Ordered By: Ramesh Byrd on 04-12-2022 Sodium [Moles/Vol] 136 mmol/L 136-146 [facility] Serum or plasma total biliru bin measurement (mass/volume)Ordered By: Ramesh Byrd on 04-12-2022 Bilirubin [Mass/Vol] 1.3 mg/dL 0.3-1.2 [facility] Comment on above: Samples from patient s who have taken Naproxen have shown spurious elevation in Total Bilirubin levels. A metabolite of Naproxen, O-desmethylnaproxen, has been shown to interfere with the Ronny-Chirag method for measuring Total Bilirubin. Serum or plasma total carbon dioxide measurement (moles/volume)Ordered By: Ramesh Byrd on 04-12-2022 CO2 [Moles/Vol] 25.4 mmol/L 22.0-30.0 [facility] Serum or plasma urea nitroge n measurement (mass/volume)Ordered By: Ramesh Byrd on 04-12-2022 Urea nitrogen [Mass/Vol] 13 mg/dL 9-[address] [facility] Specific [...] on above: Result Comment: PERF ORMED BY: [facility] [address] [place] [address] PATHOLOGIST SALES MANAGER CHARLENE HERNANDEZ M.D. Performed By: #### G LULS #### Point of Care testing , Troponin I High Sensitivityo n 04-12-2022 Troponin I High Sensitivity 18 pg/mL Normal 0-[address] [facility] Comment on above: Result Comment: PERF ORMED BY: [place] [address] PATHOLOGIST SALES MANAGER CHARLENE HERNANDEZ M.D. Performed By: #### C MP, TSH3, PT, HS TROP, PTT, BNP, MG, CBC #### [facility] [address] Troponin I.cardiac [Mass/vol ume] in Serum or Plasma by High sensitivity methodOrdered By: Ramesh Byrd on 04-12-2022 Troponin I.cardiac High sensitivity method [Mass/Vol] 18 pg/mL 0-[address] [facility] Urine bacteria detection by automated methodOrdered By: Ramesh Byrd on 04-12-2022 Bacteria Auto Ql (U) None seen None Seen [facility] Urine clarity by refractomet ry automatedOrdered [...] XR chest 2V*on 04-12-2022 XR chest 2V* [facility] [address] [place] [address] XRay Report Signed Patient: Evelin Patterson MR#: [id number] 005 : 1955 Acct:[id number] Age/Sex: 66 / M ADM Date: 04/12/22 Loc: ER Room: Type: [facility] ER Attending Dr: Copies to: Ramesh Byrd [...] Jessica Cazares M.D.04/12/2022 11:53 AM Dictation Location: [place] [address] Transcribed By: [facility] 04/12/22 1153 Dictated By: Jessica Cazares MD 04/12/22 1151 Signed By: 04/12/22 [address] [facility] pH Auto test strip (U)Ordere d By: Ramesh Byrd on 04-12-2022 pH (U) 6.5 [pH] 5.0-9.[address] [facility] Albumin [Mass/volume] in Ser um or PlasmaOrdered By: Lupe Hernandez on 04-09-2022 Albumin [Mass/Vol] 1.9 g/dL 3.2-5.5 [facility] Basophils Auto (Bld) [#/Vol] Ordered By: Lupe Hernandez on 04-09-2022 Basophils (Bld) [#/Vol] 0.1 10*3/uL 0.0-0.[address] [facility] Basophils/100 WBC Auto (Bld) Ordered By: Lupe Hernandez on 04-09-2022 Basophils/100 WBC (Bld) 1.3 % . [facility] Blood hemoglobin measurement (mass/volume)Ordered By: Lupe Hernandez on 04-09-2022 Hemoglobin (Bld) [Mass/Vol] 11.2 g/dL 13.0-17.[address] [facility] Blood leukocytes automated c ount (number/volume)Ordered By: Lupe Hernandez on 04-09-2022 WBC (Bld) [#/Vol] 5.4 10*3/uL 4.5-11.0 [facility] Creatinine and Glomerular fi ltration rate.predicted panel (S/P/Bld)Ordered By: Lupe Hernandez on 04-09-2022 Creatinine [Mass/Vol] 0.88 mg/dL 0.64-1.27 [facility] Eosinophils Auto (Bld) [#/Vo l]Ordered By: [...] 04-09-2022 Globulin (S) [Mass/Vol] 4.2 g/dL [facility] Glucose Glucometer (BldC) [M ass/Vol]Ordered By: Lupe Hernandez on 04-09-2022 Glucose [Mass/Vol] 178 mg/dL [facility] Comment on above: Random Glucose Refer [...] MCHC (RBC) [Mass/Vol] 33.5 g/dL 32.5-35.6 [facility] MCV Auto (RBC) [Entitic vol] Ordered By: Lupe Hernandez on 04-09-2022 MCV (RBC) [Entitic vol] 93.0 fL 83.5-101 [facility] Monocytes Auto (Bld) [#/Vol] Ordered By: Lupe Hernandez on 04-09-2022 Monocytes (Bld) [#/Vol] 0.6 10*3/uL 0.0-0.[address] [facility] Monocytes/100 WBC Auto (Bld) Ordered By: Lupe Hernandez on 04-09-2022 Monocytes/100 WBC (Bld) 11.0 % . [facility] Neutrophils Auto (Bld) [#/Vo l]Ordered By: Lupe [...] on 04-09-2022 Protein [Mass/Vol] 6.1 g/dL 6.1-7.9 [facility] RBC Auto (Bld) [#/Vol]Ordere d By: Lupe Hernandez on 04-09-2022 RBC (Bld) [#/Vol] 3.61 10*6/uL 3.90-5.60 [facility] Serum or plasma alanine vivas otransferase measurement without P-5'-P (enzymatic activiOrdered By: Lupe Hernandez on 04-09-2022 ALT No additional P-5'-P [Catalytic activity/Vol] 21 U/L 10-60 [facility] Serum or plasma albumin/glob ulin mass [...] 04-09-2022 Anion gap [Moles/Vol] 8.4 mmol/L 6.0-15.0 [facility] Serum or plasma aspartate am inotransferase measurement (enzymatic activity/volume)Ordered By: Lupe Hernandez on 04-09-2022 AST [Catalytic activity/Vol] 27 U/L 10-[address] [facility] Serum or plasma calcium osbaldo urement (mass/volume)Ordered By: Lupe Hernandez on 04-09-2022 Calcium [Mass/Vol] 8.2 mg/dL 8.2-10.2 [facility] Serum or plasma chloride judith surement (moles/volume)Ordered By: Lupe Hernandez on 04-09-2022 Chloride [Moles/Vol] 98 mmol/L 95-114 [facility] Serum or plasma glucose osbaldo urement (mass/volume)Ordered By: Lupe Hernandez on 04-09-2022 Glucose [Mass/Vol] 150 mg/dL 70-100 [facility] Comment on above: ADA recommended refe rence range Random Glucose Reference Range is dependent on time and content of last meal. Glucose of more than 200 mg/dL in a nonstressed, ambulatory subject supports the diagnosis of Diabetes Mellitus. Serum or plasma potassium me asurement (moles/volume)Ordered By: Lupe Hernanedz on 04-09-2022 Potassium [Moles/Vol] 3.4 mmol/L 3.5-5.1 [facility] Serum or plasma sodium measu rement (moles/volume)Ordered By: Lupe Hernandez on 04-09-2022 Sodium [Moles/Vol] 134 mmol/L 136-146 [facility] Serum or plasma total biliru bin measurement (mass/volume)Ordered By: Lupe Hernandez on 04-09-2022 Bilirubin [Mass/Vol] 0.7 mg/dL 0.3-1.2 [facility] Serum or plasma total carbon dioxide measurement (moles/volume)Ordered By: Lupe Hernandez on 04-09-2022 CO2 [Moles/Vol] 31.0 mmol/L 22.0-30.0 [facility] Serum or plasma urea nitroge n measurement (mass/volume)Ordered By: Lupe Hernandez on 04-09-2022 Urea nitrogen [Mass/Vol] 9 mg/dL 05-[address] [facility] Bacterial blood cultureOrder ed By: Luke Moarn on 04-07-2022 Bacteria identified Cx Nom (Bld) NO GROWTH [address] [facility] Laboratory - Chemistry and C hemistry - challengeOrdered By: Luke Moran on 04-04-2022 CO2 [Moles/Vol] 29.4 mmol/L 23.0-27.0 [facility] HCO3 (Bld) [Moles/Vol] 28.1 mmol/L 23.0-29.0 [facility] No Panel InformationOrdered By: Luke Moran [...] [facility] Arterial Blood pH 7.43 7.35-7.45 [facility] Blood Gas Critical Value See comment [facility] Comment on above: Critical Value kaufman d on: 04/04/2022 at 09:33 Blood Gas Liter Flow 2 L/min [facility] Blood Gas Sample Site Left radial [facility] FiO2 28 % [facility] [...] Test strip Ql (U)O rdered By: Jair Nery on 04-03-2022 Bilirubin Ql (U) Negative Negative [facility] Color Auto (U)Ordered By: Tam avery Nery on 04-03-2022 Color (U) Yellow Yellow [facility] Hepatitis B virus surface Ag [Presence] in Serum or Plasma by ImmunoassayOrdered By: Luke Moran on 04-03-2022 HBV surface Ag IA Ql Negative Negative [facility] Comment on above: Performed at: [facility] [place] [id number] [employer]: Genaro Becerril PhD, Phone: [phone] IgA [Mass/volume] in Serum o r PlasmaOrdered [...] [facility] Comment on above: Performed at: [facility] [address] [id number] [employer]: Genaro Becerril PhD, Phone: [phone] Immunofixation for UrineOrde red By: Luke Moran on 04-03-2022 Interpretation Immunofixation (U) [Interp] See comment . [facility] Comment on above: No monoclonality det ected. Performed at: [facility] [address] [id number] [employer]: Genaro Becerril PhD, Phone: [phone] Immunoglobulin light chains. kappa.free [Mass/volume] in SerumOrdered By: Luke Moran on 04-03-2022 Immunoglobulin light chains.kappa.free (S) [Mass/Vol] 93.9 mg/L 3.3-19.[address] [facility] Immunoglobulin light chains. kappa.free/Immunoglobulin light chains.lambda.free [MassOrdered By: Luke Moran on 04-03-2022 Immunoglobulin light chains.kappa.free/Immuno globulin light chains.lambda.free (S) [Mass ratio] 1.52 0.26-1.[address] [facility] Comment on above: Performed at: [address] [id number] [employer]: Genaro Becerril PhD, Phone: [phone] Immunoglobulin light chains. lambda.free [Mass/volume] in Serum or PlasmaOrdered By: Luke Moran on 04-03-2022 Immunoglobulin light chains.lambda.free [Mass/Vol] 61.6 mg/L 5.7-26.[address] [facility] Ketones Auto test strip (U) [Mass/Vol]Ordered By: Jair Gabriel on 04-03-2022 Ketones (U) [Mass/Vol] Negative Negative [facility] - UrinalysisOrder ed By: Jair [...] [facility] Serum Immunofixation See comment . [facility] Comment on above: Immunofixation shows IgG monoclonal protein with lambda light chain specificity. Protein Auto test strip (U) [Mass/Vol]Ordered By: Jair Gabriel on 04-03-2022 Protein (U) [Mass/Vol] Negative Negative [facility] Random cortisol measurementO rdered By: Luke Moran on 04-03-2022 Cortisol [Mass/Vol] 5.8 ug/dL [facility] Comment on above: Reference range: AM 6 - 24 ug/dl PM <10 ug/dl Serum hepatitis B virus surf calin antibody detectionOrdered By: Luke Moran on 04-03-2022 HBV surface Ab Ql (S) Reactive . [facility] Comment on above: Non Reactive: Incons [...] [facility] Comment on above: --- 04/04/22735 -- - [...] Auto Ql (U) None seen None Seen [facility] Urine clarity by refractomet ry automatedOrdered [...] aPTT Coag (PPP) [Time] 24.8 s 25.1-36.5 [facility] COVID-19 Positive/NegativeOr dered By: Jair Gabriel on 04-02-2022 SARS-CoV-2 (COVID-19) N gene MANJIT+probe Ql (Resp) Negative Negative [facility] Comment on above: Testing for SARS-CoV -2 by RT-PCR This test was developed and its performance characteristics determined by [employer] ([employer]) and validated [facility] the [facility] [...] PT Coag (PPP) [Time] 11.9 s 9.0-12.9 [facility] No Panel InformationOrdered By: Luke Moran [...] Jair Gabriel on 04-02-2022 SARS Antigen (LFIA) [facility] Platelet poor plasma interna tional [...] on 03-16-2022 Albumin [Mass/Vol] 1.9 g/dL 3.2-5.5 [facility] Creatinine and Glomerular fi ltration rate.predicted panel (S/P/Bld)Ordered By: Sarah Osuna on 03-16-2022 Creatinine [Mass/Vol] 1.27 mg/dL 0.64-1.27 [facility] Estimated glomerular filtrat ion rate (GFR) non- AmericanOrdered By: Sarah Osuna on 03-16-2022 GFR/1.73 sq M.predicted among non-blacks MDRD (S/P/Bld) [Vol rate/Area] 57 mL/Min [facility] Glucose Glucometer (BldC) [M ass/Vol]Ordered By: Xin Phan on 03-16-2022 Glucose [Mass/Vol] 377 mg/dL [facility] Comment on above: Random Glucose Refer [...] on 03-16-2022 Calcium [Mass/Vol] 8.4 mg/dL 8.2-10.2 [facility] Serum or plasma chloride judith surement (moles/volume)Ordered By: Sarah Osuna on 03-16-2022 Chloride [Moles/Vol] 99 mmol/L 95-114 [facility] Serum or plasma glucose osbaldo urement (mass/volume)Ordered By: Sarah Osuna on 03-16-2022 Glucose [Mass/Vol] 265 mg/dL 70-100 [facility] Comment on above: Delta: 480 on -1041 ADA recommended reference range Random Glucose Reference Range is dependent on time and content of last meal. Glucose of more than 200 mg/dL in a nonstressed, ambulatory subject supports the diagnosis of Diabetes Mellitus. Serum or plasma potassium me asurement (moles/volume)Ordered By: Xin Phan on 03-16-2022 Potassium [Moles/Vol] 4.0 mmol/L 3.5-5.1 [facility] Serum or plasma sodium measu rement (moles/volume)Ordered By: Sarah Osuna on 03-16-2022 Sodium [Moles/Vol] 132 mmol/L 136-146 [facility] Serum or plasma total carbon dioxide measurement (moles/volume)Ordered By: Sarah Osuna on 03-16-2022 CO2 [Moles/Vol] 25.4 mmol/L 22.0-30.0 [facility] Serum or plasma urea nitroge [...] Basophils/100 WBC (Bld) 0.2 % . [facility] Bilirubin Auto test strip Ql (U)Ordered By: Sarah Osuna on 03-14-2022 Bilirubin Ql (U) Negative Negative [facility] Blood hemoglobin measurement (mass/volume)Ordered By: Leah Huang on 03-14-2022 Hemoglobin (Bld) [Mass/Vol] 11.6 g/dL 13.0-17.[address] [facility] Blood leukocytes automated c ount (number/volume)Ordered By: Leah Huang on 03-14-2022 WBC (Bld) [#/Vol] 6.0 10*3/uL 4.5-11.0 [facility] Creatinine [Mass/volume] in UrineOrdered By: Sarah [...] 03-14-2022 Globulin (S) [Mass/Vol] 3.8 g/dL [facility] Glucose mean value [Mass/vol ume] in Blood [...] on 03-14-2022 Ketones (U) [Mass/Vol] Negative Negative [facility] - Hematology and Cell countsOrdered [...] 03-14-2022 MCHC (RBC) [Mass/Vol] 33.0 g/dL 32.5-35.6 [facility] MCV Auto (RBC) [Entitic vol] Ordered By: Leah Huang on 03-14-2022 MCV (RBC) [Entitic vol] 90.4 fL 83.5-101 [facility] Monocytes Auto (Bld) [#/Vol] Ordered By: Leah Huang on 03-14-2022 Monocytes (Bld) [#/Vol] 0.5 10*3/uL 0.0-0.[address] [facility] Monocytes/100 WBC Auto (Bld) Ordered By: Leah Huang on 03-14-2022 Monocytes/100 WBC (Bld) 9.0 % . [facility] Neutrophils Auto (Bld) [#/Vo l]Ordered By: Leah [...] on 03-14-2022 Protein (U) [Mass/Vol] Negative Negative [facility] Protein [Mass/volume] in Ser um or PlasmaOrdered By: Leah Huang on 03-14-2022 Protein [Mass/Vol] 5.8 g/dL 6.1-7.9 [facility] Protein [Mass/volume] in Uri neOrdered By: Sarah Osuna on 03-14-2022 Protein (U) [Mass/Vol] 13 mg/dL 0-9 [facility] RBC Auto (Bld) [#/Vol]Ordere d By: Leah Huang on 03-14-2022 RBC (Bld) [#/Vol] 3.88 10*6/uL 3.90-5.60 [facility] Serum or plasma alanine vivas otransferase measurement without P-5'-P (enzymatic activiOrdered By: Leah Huang on 03-14-2022 ALT No additional P-5'-P [Catalytic activity/Vol] 35 U/L 10-60 [facility] Serum or plasma albumin/glob ulin mass [...] on 03-14-2022 Bilirubin [Mass/Vol] 1.0 mg/dL 0.3-1.2 [facility] Squamous epithelial cells de tection in urine sediment by light microscopyOrdered By: Sarah Osuna on 03-14-2022 Epithelial cells.squamous LM Ql (Urine sed) None seen [HPF] 0-[address] [facility] Urea nitrogen [Mass/volume] in UrineOrdered By: Leah Huang on 03-14-2022 Urea nitrogen (U) [Mass/Vol] 454 mg/dL Not Estab. [facility] Comment on above: Performed at: [address] [id number] [employer]: Genaro Becerril PhD, Phone: [phone] Urine appearanceOrdered By: Sarah Osuna on 03-14-2022 Appearance (U) Clear Clear [facility] Urine bacteria detection by automated methodOrdered By: Sarah Osuna on 03-14-2022 Bacteria Auto Ql (U) None seen None Seen [facility] Urine colorOrdered By: Sarah Osuna on [...] on 03-14-2022 Sodium (U) [Moles/Vol] 20 mmol/L [facility] Comment on above: No reference range [...] 01-10 Glucose [Mass/Vol] 161 mg/dL Critically high [facility]106 [facility] Comment on above: Performed By: #### T STEFF, BMP #### [facility] [address] [address] [address] Ladan Diehl POINT OF CARE GLUCOSEon 01-09 Glucose [Mass/Vol] 358 mg/dL Critically high [facility] Comment on above: Performed By: #### A 1C #### [facility] [address] [place] [address] Dr. Ladan Diehl Glucose [Mass/Vol] 279 mg/dL Critically high [address] [place] [address] Comment on above: Performed By: #### A 1C #### [facility] [address] [place] [address] Dr. Ladan Diehl Glucose [Mass/Vol] 247 mg/dL Critically high [address] [place] [address] Comment on above: Performed By: #### T STEFF, BMP #### [facility] [address] [place] [address] Dr. Ladan Diehl Glucose [Mass/Vol] 357 mg/dL Critically high [address] [place] [address] Comment on above: Performed By: #### A 1C #### [facility] [address] [place] [address] Dr. Ladan Diehl PROF CHEM 8 (BAS METB)on Anion gap [Moles/Vol] 11.1 mmol/L Normal [facility] Comment on above: Performed By: #### T STEFF, BMP #### [facility] [address] [place] [address] Dr. Ladan Diehl Calcium [Mass/Vol] 8.8 mg/dL Normal 8.5-10.1 [facility] Comment on above: Performed By: #### T STEFF, BMP #### [facility] [address] [place], [place] [id number] Dr. Ladan Diehl Chloride [Moles/Vol] 99 mmol/L Normal 98-107 [facility] Comment on above: Performed By: #### T SH, BMP #### [facility] [address] [place] [address] Dr. Ladan Diehl CO2 [Moles/Vol] 27.2 mmol/L Normal 21.0-32.0 [facility] Comment on above: Performed By: #### T SH, BMP #### [facility] [address] [place] [address] Dr. Ladan Diehl Creatinine [Mass/Vol] 1.59 mg/dL Critically high 0.70-1.30 [facility] Comment on above: Performed By: #### T SH, BMP #### [facility] [address] [place] [address] Dr. Ladan Diehl EGFR-AF BAHAMIAN 53 mL/min/1.73m2 Critically low >=60 [facility] Comment on above: Performed By: #### T SH, BMP #### [facility] [address] [place] [address] Dr. Ladan Diehl EGFR-NON AF BAHAMIAN 44 mL/min/1.73m2 Critically low >=60 [facility] Comment on above: Performed By: #### T SH, BMP #### [facility] [address] [place] [address] Dr. Ladan Diehl Glucose [Mass/Vol] 284 mg/dL Critically high 74-106 [facility] Comment on above: Performed By: #### T SH, BMP #### [facility] [address] [place] [address] Dr. Ladan Diehl Potassium [Moles/Vol] 4.2 mmol/L Normal 3.5-5.1 [facility] Comment on above: Performed By: #### T SH, BMP #### [facility] [address] [place] [address] Dr. Ladan Diehl Sodium [Moles/Vol] 133 mmol/L Critically low 136-145 [facility] Comment on above: Performed By: #### T SH, BMP #### [facility] [address] [address] [address] Ladan Diehl Urea nitrogen [Mass/Vol] 22.0 mg/dL Critically high 7.0-18 .0 [facility] Comment on above: Performed By: #### T SH, BMP #### [facility] [address] [place], [place] [address] Dr. Ladan Diehl Urea nitrogen/Creatinine [Mass ratio] 13.8 mg/mg Normal [facility] Comment on above: Performed By: #### T STEFF, BMP #### [facility] [address] [address] [address] Ladan Diehl TROPONIN, HIGH SENSITIVITYon 01-24-2022 HSTROP 13.7 pg/mL Normal 4.0-76.1 [facility] Comment on above: Result Comment: CUT- OFF POINTS HAVE BEEN ESTABLISHED BASED ON THE FOURTH UNIVERSAL DEFINITIONS OF MYOCARDIAL INFARCTION. THE UPPER REFERENCE LIMIT (URL) OF TROPONIN, DEFINED THE 99TH PERCENTILE OF cTnI DISTRIBUTION IN A REFERENCE POPULATION, HAS BEEN CONFIRMED THE DECISION THRESHOLD FOR DC DIAGNOSIS. Performed By: #### H STROPN #### [facility] [address] [address] [address] Ladan Diehl TSHon 01-24-2022 TSH 0.381 uIU/mL Normal 0.358-3.740 [facility] Comment on above: Performed By: #### T STEFF, BMP #### [facility] [address] [address] [address] Ladan Diehl US LIT DOP LEG [...] CAROL YIP Date: 2022-01-24 09:51 Normal [facility] BNPon 01-23-2022 Natriuretic peptide B (Bld) [Mass/Vol] 262.0 pg/mL Normal <=900.0 [facility] Comment on above: Performed By: #### A 1C #### [facility] [address] [place] [address] Dr. Ladan Diehl CBC AUTO DIFFon 01-23-2022 BASO # 0.1 103/ul Normal 0.0-0.1 [facility] Comment on above: Performed By: #### T SH, BMP #### [facility] [address] [place] [address] Dr. Ladan Diehl Basophils/100 WBC (Bld) 0.8 % Normal 0.2-2.0 [facility] Comment on above: Performed By: #### T SH, BMP #### [facility] [address] [place] [address] Dr. Ladan Diehl EO # 0.3 103/ul Normal 0.0-0.7 [facility] Comment on above: Performed By: #### T SH, BMP #### [facility] [address] [place] [address] Dr. Ladan Diehl Eosinophils/100 WBC (Bld) 4.4 % Normal 0.9-7.0 [facility] Comment on above: Performed By: #### T SH, BMP #### [facility] [address] [place] [address] Dr. Ladan Diehl Erythrocyte distribution width (RBC) [Ratio] 14.0 % Normal 11.0-15.0 [facility] Comment on above: Performed By: #### T SH, BMP #### [facility] [address] [place] [address] Dr. Ladan Diehl Hematocrit (Bld) [Volume fraction] 38.3 % Critically low 42.0-54.0 [facility] Comment on above: Performed By: #### T SH, BMP #### [facility] [address] [place] [address] Dr. Ladan Diehl Hemoglobin (Bld) [Mass/Vol] 12.0 g/dL Critically low 14.0-18.0 [facility] Comment on above: Performed By: #### T SH, BMP #### [facility] [address] [address] [address] Ladan Diehl IG # 0.03 10e3/ul Normal 0.00-0.03 [facility] Comment on above: Performed By: #### T SH, BMP #### [facility] [address] [place] [address] Dr. Ladan Diehl IG % 0.5 % Normal 0.0-0.5 [facility] Comment on above: Performed By: #### T SH, BMP #### [facility] [address] [place] [address] Dr. Ladan Diehl LYMPH # 1.2 103/ul Normal 1.2-3.8 [facility] Comment on above: Performed By: #### T SH, BMP #### [facility] [address] [place] [address] Dr. Ladan Diehl Lymphocytes/100 WBC (Bld) 20.2 % Critically low 20.5-60.0 [facility] Comment on above: Performed By: #### T SH, BMP #### [facility] [address] [place] [address] Dr. Ladan Diehl MANUAL DIFF REQ NO Normal [facility] Comment on above: Performed By: #### T SH, BMP #### [facility] [address] [place] [address] Dr. Ladan Diehl MCH (RBC) [Entitic mass] 29.6 pg Normal 25.9-34.0 [facility] Comment on above: Performed By: #### T SH, BMP #### [facility] [address] [place] [address] Dr. Ladan Diehl MCHC (RBC) [Mass/Vol] 31.3 g/dL Normal 29.9-35.2 [facility] Comment on above: Performed By: #### T SH, BMP #### [facility] [address] [place] [address] Dr. Ladan Diehl MCV (RBC) [Entitic vol] 94.6 fL Critically high 80.0-94 .0 [facility] Comment on above: Performed By: #### T SH, BMP #### [facility] [address] [address] [address] Ladan Diehl MONO # 0.7 103/ul Normal 0.3-0.8 [facility] Comment on above: Performed By: #### T SH, BMP #### [facility] [address] [place] [address] Dr. Ladan Diehl Monocytes/100 WBC (Bld) 10.7 % Normal 1.7-12.0 [facility] Comment on above: Performed By: #### T SH, BMP #### [facility] [address] [place] [address] Dr. Ladan Diehl NEUT # 3.9 103/ul Normal 1.4-6.5 [facility] Comment on above: Performed By: #### T SH, BMP #### [facility] [address] [place] [address] Dr. Ladan Diehl Neutrophils/100 WBC (Bld) 63.4 % Normal 43.0-75.0 [facility] Comment on above: Performed By: #### T SH, BMP #### [facility] [address] [place] [address] Dr. Ladan Diehl Platelet mean volume (Bld) [Entitic vol] 10.0 fL Normal 9.5-13.5 [facility] Comment on above: Performed By: #### T SH, BMP #### [facility] [address] [place] [address] Dr. Ladan Diehl PLT 171 103/ul Normal 150-450 [facility] Comment on above: Performed By: #### T SH, BMP #### [facility] [address] [place] [address] Dr. Ladan Diehl RBC 4.05 106/ul Critically low 4.70-6.10 [facility] Comment on above: Performed By: #### T SH, BMP #### [facility] [address] [place] [address] Dr. Ladan Diehl WBC 6.1 103/ul Normal 4.0-11.0 [facility] Comment on above: Performed By: #### T , [facility] #### [facility] [address] [address] [address] Ladan Diehl CTA CHEST WO W [...] XIN BUI Date: 2022-01-23 19:35 Normal [facility] Covid-19 PCR (CVDTB)on 01-09 SARS-CoV-2 (COVID-19) RNA MANJIT+probe Ql (Unsp spec) Not detected Normal NOT DETECTED [facility] Comment on above: Result Comment: [...] for this test is supported by the [employer] of Health and Human Service's declaration [...] used). Performed By: #### A 1C #### [facility] [address] [place] [address] Dr. Ladan Diehl LACTATE/LACTIC ACIDon 2021 Lactate [Moles/Vol] 1.6 mmol/L Normal 0.4-1.9 [facility] Comment on above: Performed By: #### L ACT #### [facility] [address] [place] [address] Dr. Ladan Diehl PROF 14(COMP METB)on 022 Albumin [Mass/Vol] 2.7 g/dL Critically low 3.4-5.0 [facility] Comment on above: Performed By: #### A 1C #### [facility] [address] [place] [address] Dr. Ladan Diehl Albumin/Globulin [Mass ratio] 0.5 {ratio} Normal [facility] Comment on above: Performed By: #### A 1C #### [facility] [address] [place] [address] Dr. Ladan Diehl ALP [Catalytic activity/Vol] 120 U/L Critically high 46-116 [facility] Comment on above: Performed By: #### A 1C #### [facility] [address] [place] [address] Dr. Ladan Diehl ALT [Catalytic activity/Vol] 23 U/L Normal 16-63 [facility] Comment on above: Performed By: #### A 1C #### [facility] [address] [place] [address] Dr. Ladan Diehl Anion gap [Moles/Vol] 10.3 mmol/L Normal [facility] Comment on above: Performed By: #### A 1C #### [facility] [address] [place] [address] Dr. Ladan Diehl AST [Catalytic activity/Vol] 29 U/L Normal 15-37 [facility] Comment on above: Performed By: #### A 1C #### [facility] [address] [address] [address] Ladan iDehl Bilirubin [Mass/Vol] 1.0 mg/dL Normal 0.2-1.0 [facility] Comment on above: Performed By: #### A 1C #### [facility] [address] [address] [address] Ladan Diehl Calcium [Mass/Vol] 8.8 mg/dL Normal 8.5-10.1 [facility] Comment on above: Performed By: #### A 1C #### [facility] [address] [address] [address] Ladan Diehl Chloride [Moles/Vol] 101 mmol/L Normal 98-107 [facility] Comment on above: Performed By: #### A 1C #### [facility] [address] [address] [address] Ladan Diehl CO2 [Moles/Vol] 30.8 mmol/L Normal 21.0-32.0 [facility] Comment on above: Performed By: #### A 1C #### [facility] [address] [place] [address] Dr. Ladan Diehl Creatinine [Mass/Vol] 1.40 mg/dL Critically high 0.70-1.30 [facility] Comment on above: Performed By: #### A 1C #### [facility] [address] [address] [address] Ladan Diehl EGFR-AF BAHAMIAN >60 Normal >=60 [facility] Comment on above: Performed By: #### A 1C #### [facility] [address] [address] [address] Ladan Diehl EGFR-NON AF BAHAMIAN 51 mL/min/1.73m2 Critically low >=60 [facility] Comment on above: Performed By: #### A 1C #### [facility] [address] [place] [address] Dr. Ladan Diehl Globulin (S) [Mass/Vol] 5.3 g/dL Normal [facility] Comment on above: Performed By: #### A 1C #### [facility] [address] [place] [address] Dr. Ladan Diehl Glucose [Mass/Vol] 125 mg/dL Critically high 74-106 [facility] Comment on above: Performed By: #### A 1C #### [facility] [address] [address] [address] Ladan Diehl Potassium [Moles/Vol] 4.1 mmol/L Normal 3.5-5.1 [facility] Comment on above: Performed By: #### A 1C #### [facility] [address] [place] [address] Dr. Ladan Diehl Protein [Mass/Vol] 8.0 g/dL Normal 6.4-8.2 [facility] Comment on above: Performed By: #### A 1C #### [facility] [address] [place] [address] Dr. Ladan Diehl Sodium [Moles/Vol] 138 mmol/L Normal 136-145 [facility] Comment on above: Performed By: #### A 1C #### [facility] [address] [place] [address] Dr. Ladan Diehl Urea nitrogen [Mass/Vol] 20.0 mg/dL Critically high 7.0-18 .0 [facility] Comment on above: Performed By: #### A 1C #### [facility] [address] [place] [address] Dr. Ladan Diehl Urea nitrogen/Creatinine [Mass ratio] 14.3 mg/mg Normal [facility] Comment on above: Performed By: #### A 1C #### [facility] [address] [place] [address] Dr. Ladna Diehl PROTIMEon 01-23-2022 INR Coag (PPP) [Relative time] 1.02 {INR} Normal [facility] Comment on above: Performed By: #### P T, PTT #### [facility] [address] [place] [address] Dr. Ladan Diehl INR GUIDELINES SEE BELOW Normal [facility] Comment on above: Result Comment: KALI RED INR: 2.0 - 3.0 CONDITIONS NOT LISTED BELOW 2.5 - 3.5 FOR PROSTHETIC HEART VALVE REPLACEMENT 2.5 - 3.5 RECURRENT THROMBOSIS Performed By: #### P T, PTT #### [facility] [facility] [address] [address] [address] Ladan Diehl PT Coag (PPP) [Time] 11.0 s Normal 9.0-11.6 [facility] Comment on above: Performed By: #### P T, PTT #### [facility] [address] [address] [address] Ladan Diehl PTTon 01-23-2022 aPTT Coag (Bld) [Time] 27.6 s Normal 22.3-36.2 Th e [facility] Comment on above: Performed By: #### P T, PTT #### [facility] [address] [place] [address] Dr. Ladan Diehl TROPONIN, HIGH SENSITIVITYon 01-23-2022 HSTROP 10.4 pg/mL Normal 4.0-76.1 [facility] Comment on above: Result Comment: CUT- OFF POINTS HAVE BEEN ESTABLISHED BASED ON THE FOURTH UNIVERSAL DEFINITIONS OF MYOCARDIAL INFARCTION. THE UPPER REFERENCE LIMIT (URL) OF TROPONIN, DEFINED THE 99TH PERCENTILE OF cTnI DISTRIBUTION IN A REFERENCE POPULATION, HAS BEEN CONFIRMED THE DECISION THRESHOLD FOR DC DIAGNOSIS. Performed By: #### A 1C #### [facility] [address] [place] [address] ABD/PELV W CONon [...] by: TANNER PEDRAZA Date: 2022-01-18 23:39 Normal [facility] XR CHEST 1 Von 01-19-2022 XR CHEST [...] by: ROSELIA RIVERA Date: 2022-01-18 22:16 Normal [facility] XR KNEE LT 4V [...] by: JENNIFER CASTILLO Date: 2022-01-18 23:06 Normal [facility] CBC AUTO DIFFon 01-18-2022 BASO # 0.1 103/ul Normal 0.0-0.1 [facility] Comment on above: Performed By: #### C BC #### [facility] [address] [place], [place] [address] Dr. Ladan Diehl Basophils/100 WBC (Bld) 0.8 % Normal 0.2-2.0 [facility] Comment on above: Performed By: #### C BC #### [facility] [address] [place] [address] Dr. Ladan Diehl EO # 0.4 103/ul Normal 0.0-0.7 The [facility] Comment on above: Performed By: #### C BC #### [facility] [address] [place] [address] Dr. Ladan Diehl Eosinophils/100 WBC (Bld) 4.3 % Normal 0.9-7.0 [facility] Comment on above: Performed By: #### C BC #### [facility] [address] [place] [address] Dr. Ladan Diehl Erythrocyte distribution width (RBC) [Ratio] 14.4 % Normal 11.0-15.0 [facility] Comment on above: Performed By: #### C BC #### [facility] [address] [place] [address] Dr. Ladan Diehl Hematocrit (Bld) [Volume fraction] 37.2 % Critically low 42.0-54.0 [facility] Comment on above: Performed By: #### C BC #### [facility] [address] [place] [address] Dr. Ladan Diehl Hemoglobin (Bld) [Mass/Vol] 11.9 g/dL Critically low 14.0-18.0 [facility] Comment on above: Performed By: #### C BC #### [facility] [address] [place] [address] Dr. Ladan Diehl IG # 0.04 10e3/ul Critically high 0.00-0.03 [facility] Comment on above: Performed By: #### C BC #### [facility] [address] [place] [address] Dr. Ladan Diehl IG % 0.5 % Normal 0.0-0.5 The [facility] Comment on above: Performed By: #### C BC #### [facility] [address] [place] [address] Dr. Ladan Diehl LYMPH # 2.2 103/ul Normal 1.2-3.8 The [facility] Comment on above: Performed By: #### C BC #### [facility] [address] [place] [address] Dr. Ladan Diehl Lymphocytes/100 WBC (Bld) 26.2 % Normal 20.5-60.0 [facility] Comment on above: Performed By: #### C BC #### [facility] [address] [place] [address] Dr. Ladan Diehl MANUAL DIFF REQ NO Normal [facility] Comment on above: Performed By: #### C BC #### [facility] [address] [place] [address] Dr. Ladan Diehl MCH (RBC) [Entitic mass] 30.4 pg Normal 25.9-34.0 [facility] Comment on above: Performed By: #### C BC #### [facility] [address] [place] [address] Dr. Ladan Diehl MCHC (RBC) [Mass/Vol] 32.0 g/dL Normal 29.9-35.2 [facility] Comment on above: Performed By: #### C BC #### [facility] [address] [place] [address] Dr. Ladan Diehl MCV (RBC) [Entitic vol] 94.9 fL Critically high 80.0-94 .0 [facility] Comment on above: Performed By: #### C BC #### [facility] [address] [place] [address] Dr. Ladan Diehl MONO # 0.9 103/ul Critically high 0.3-0.8 The [facility] Comment on above: Performed By: #### C BC #### [facility] [address] [place] [address] Dr. Ladan Diehl Monocytes/100 WBC (Bld) 10.3 % Normal 1.7-12.0 [facility] Comment on above: Performed By: #### C BC #### [facility] [address] [place] [address] Dr. Ladan Diehl NEUT # 5.0 103/ul Normal 1.4-6.5 [facility] Comment on above: Performed By: #### C BC #### [facility] [address] [place] [address] Dr. Ladan Diehl Neutrophils/100 WBC (Bld) 57.9 % Normal 43.0-75.0 [facility] Comment on above: Performed By: #### C BC #### [facility] [address] [place] [address] Dr. Ladan Diehl Platelet mean volume (Bld) [Entitic vol] 9.9 fL Normal 9.5-13.5 [facility] Comment on above: Performed By: #### C BC #### [facility] [address] [place] [address] Dr. Ladan Diehl PLT 180 103/ul Normal 150-450 [facility] Comment on above: Performed By: #### C BC #### [facility] [address] [place] [address] Dr. Ladan Diehl RBC 3.92 106/ul Critically low 4.70-6.10 [facility] Comment on above: Performed By: #### C BC #### [facility] [address] [place] [address] Dr. Ladan Diehl WBC 8.6 103/ul Normal 4.0-11.0 [facility] Comment on above: Performed By: #### C BC #### [facility] [address] [place] [address] Dr. Ladan Diehl PROF 14(COMP METB)on 022 Albumin [Mass/Vol] 2.6 g/dL Critically low 3.4-5.0 [facility] Comment on above: Performed By: #### C MP #### [facility] [address] [place] [address] Dr. Ladan Diehl Albumin/Globulin [Mass ratio] 0.5 {ratio} Normal [facility] Comment on above: Performed By: #### C MP #### [facility] [address] [place] [address] Dr. Ladan Diehl ALP [Catalytic activity/Vol] 184 U/L Critically high 46-116 [facility] Comment on above: Performed By: #### C MP #### [facility] [address] [place] [address] Dr. Ladan Diehl ALT [Catalytic activity/Vol] 24 U/L Normal 16-63 [facility] Comment on above: Performed By: #### C MP #### [facility] [address] [address] [address] Ladan Diehl Anion gap [Moles/Vol] 10.1 mmol/L Normal Th e [facility] Comment on above: Performed By: #### C MP #### [facility] [address] [address] [address] Ladan Diehl AST [Catalytic activity/Vol] 22 U/L Normal 15-37 [facility] Comment on above: Performed By: #### C MP #### [facility] [address] [address] [address] Ladan Diehl Bilirubin [Mass/Vol] 0.5 mg/dL Normal 0.2-1.0 [facility] Comment on above: Performed By: #### C MP #### [facility] [address] [address] [address] Ladan Diehl Calcium [Mass/Vol] 8.6 mg/dL Normal 8.5-10.1 [facility] Comment on above: Performed By: #### C MP #### [facility] [address] [address] [address] Ladan Diehl Chloride [Moles/Vol] 101 mmol/L Normal 98-107 [facility] Comment on above: Performed By: #### C MP #### [facility] [address] [address] [address] Ladan Diehl CO2 [Moles/Vol] 30.9 mmol/L Normal 21.0-32.0 [facility] Comment on above: Performed By: #### C MP #### [facility] [address] [address] [address] Ladan Diehl Creatinine [Mass/Vol] 1.72 mg/dL Critically high 0.70-1.30 [facility] Comment on above: Performed By: #### C MP #### [facility] [address] [address] [address] Ladan Diehl EGFR-AF BAHAMIAN 49 mL/min/1.73m2 Critically low >=60 [facility] Comment on above: Performed By: #### C MP #### [facility] [address] [address] [address] Ladan Diehl EGFR-NON AF BAHAMIAN 40 mL/min/1.73m2 Critically low >=60 [facility] Comment on above: Performed By: #### C MP #### [facility] [address] [address] [address] Ladan Diehl Globulin (S) [Mass/Vol] 5.2 g/dL Normal [facility] Comment on above: Performed By: #### C MP #### [facility] [address] [address] [address] Ladan Diehl Glucose [Mass/Vol] 253 mg/dL Critically high 74-106 [facility] Comment on above: Performed By: #### C MP #### [facility] [address] [address] [address] Ladan Diehl Potassium [Moles/Vol] 4.0 mmol/L Normal 3.5-5.1 [facility] Comment on above: Performed By: #### C MP #### [facility] [address] [address] [address] Ladan Diehl Protein [Mass/Vol] 7.8 g/dL Normal 6.4-8.2 [facility] Comment on above: Performed By: #### C MP #### [facility] [address] [address] [address] Ladan Diehl Sodium [Moles/Vol] 138 mmol/L Normal 136-145 [facility] Comment on above: Performed By: #### C MP #### [facility] [address] [address] [address] Ladan Diehl Urea nitrogen [Mass/Vol] 30.0 mg/dL Critically high 7.0-18 .0 [facility] Comment on above: Performed By: #### C MP #### [facility] [address] [address] [address] Ladan Diehl Urea nitrogen/Creatinine [Mass ratio] 17.4 mg/mg Normal [facility] Comment on above: Performed By: #### C MP #### [facility] [address] [address] [address] Ladan Diehl Vital Signs Date Time Vital Sign Value Performing Clinician Facility 05-01-2022 06:00-0400 Diastolic blood pressure 58 mm[Hg] [facility] 05-01-2022 06:00-0400 Heart rate 89 /min [facility] 05-01-2022 06:00-0400 Respiratory rate 20 /min [facility] 05-01-2022 06:00-0400 SaO2% (BldA) [Mass fraction] 91 % [facility] Comment on above: 2 L NC at baseline 05-01-2022 06:00-0400 Systolic blood pressure 86 mm[Hg] [facility] 04-12-2022 15:01-0400 Body temperature 98.3 [...] Date Encounter Type Care Provider Facility Start: 03-02-2024 ambulatory Facility:[facility]irso Gabriel Start: 09-16-2023 End: 09-16-2023 ambulatory AYDEN FREEMAN Not Available Start: 12-19-2022 End: 12-20-[address] AYDEN FREEMAN Facility:[facility] Start: 06-05-2022 End: 06-06-[address] AYDEN FREEMAN Facility:[facility] Start: 05-29-2022 End: 06-01-[address] AYDEN FREEMAN Facility:[facility] Start: 05-17-2022 End: 05-17-[address] CAROL YIP Facility:[facility] Start: 05-03-2022 ambulatory UNKNOWN PROVIDER Facili ty:[facility] Start: 05-01-2022 End: 05-04-2022 ambulatory UNKNOWN PROVIDER Facility:[facility] Start: 05-01-2022 End: 05-01-2022 ambulatory [facility] Emergenc y Triage, Treat and Transport Start: 05-01-2022 End: 05-01-2022 Emergency department patient visit [facility] Emergency Triage, Treat and Transport Comment on above: Arrived Start: 04-24-2022 End: 04-30-2022 ambulatory UNKNOWN PROVIDER Facility:[facility] Start: 04-12-2022 End: 04-12-2022 Emergency department patient visit Ramesh Byrd Facility:[facility] Start: 04-12-2022 End: 04-12-2022 Emergency department patient visit MD Ayden Freeman Work Phone: [facility] Start: 04-10-2022 End: 04-17-2022 ambulatory UNKNOWN PROVIDER Facility:[facility] Start: 04-02-2022 End: 04-09-2022 Evaluation and management of inpatient MD Ayden Freeman Work Phone: [facility] Start: 03-15-[address] AYDEN FREEMAN Facil ity:[facility] Start: 03-14-2022 End: 03-14-2022 Patient encounter procedure JEFF Saul CARLOS [facility] [place] Start: 03-14-2022 End: 03-16-2022 Evaluation and management of inpatient MD Ayden Freeman Work Phone: [facility] Start: 02-15-[address] AYDEN FREEMAN Facil ity:[facility] Start: 02-01-2022 End: 02-01-2022 ambulatory HINA DIOP . Facility:[facility] Start: 01-24-2022 End: 01-24-[address] CAROL YIP Facility:[facility] Start: 01-18-2022 End: 01-19-[address] MASON CASTRO Facility:[facility] Procedures Date Procedure Procedure Detail Performing Clinician Start: 12-19-[address] AYDEN FRIEND Comment on above: Performed By: #### P [facility] #### [facility] [address] [address] [address] Ladan Diehl Start: 04-12-2022 Plain chest [...] Start: 05-11-2022 Influenza vaccination [facility] Start: 04-12-2022 Plain chest X-ray XR chest 2V* [facility] Start: 04-12-2022 End: 04-12-2022 Emergency department patient visit Departed Emergency [facility] Start: 04-09-[address] [facility] Work Phone: Start: 04-09-[address] [facility] Work Phone: Start: 04-02-2022 End: 04-09-2022 Evaluation and management of inpatient Abrasion of elbow [facility] Start: 04-02-2022 CT angiography of thorax CT angio chest PE protocol [facility] Start: 04-02-2022 Hospital admission [facility] Work Phone: Start: 08-23-2022 X-ray of left knee XR knee LT [...] [facility] Start: 03-16-[address] [facility] Work Phone: Start: 03-14-2022 Referral to manager of employee relations [facility] Work Phone: Start: 03-14-2022 Hospital admission [facility] Work Phone: Start: 12-09-2021 [...] neoplasm of colon Colonoscopy [facility] Patient Education [facility] Work Phone: Patient referral [facility] Work Phone: Payers Date Payer Category Payer Self-pay [id number] 2021 Medicare [employer] - MEDICARE UHC HMO SNP [id number] 2021-Present [phone] [address] [address] [place] [address] Medicare [id number] 2021 Private Health Insurance [id number] 2017 Unknown [id number] 1959 Medicaid [id number] 1959 Medicare [id number] 1957 Unknown [id number] 2.16.840.1.579457.3.579.2. 732 1957 Unknown [id number] 2.16.840.1.327066.3.579.2. 732 1957 Unknown [id number] 2.16.840.1.541436.3.579.2. 732 1957 Unknown [id number] 2.16.840.1.515610.3.579.2. 732 1957 Unknown [id number] 2.16.840.1.680504.3.579.2. 593 1957 Unknown [id number] 2.16.840.1.026274.3.579.2. 593 1957 Unknown [id number] 2.16.840.1.395290.3.579.2. 593 1957 Unknown [id number] 2.16.840.1.697866.3.579.2. 593 1957 Unknown [id number] 2.16.840.1.789800.3.579.2. 593 1957 Unknown [id number] 2.16.840.1.856053.3.579.2. 593 1957 Unknown [id number] 2.16.840.1.340679.3.579.2. 593 1957 Unknown [id number] 2.16.840.1.062028.3.579.2. 593 1957 Unknown [id number] 2.16.840.1.778811.3.579.2. 593 1957 Unknown [id number] 2.16.840.1.136133.3.579.2. 1259 Medicare Medicare [id number] Medicare Medicare Psych-IP Part A [id number] Medicare [place] [employer] PFF[employer] [id number] Medicare [employer] [id number] Unknown [facility] [id number] Unknown [id number] 2.16.840.1.044594.3.579.2. 531 Social History Date Type Detail Facility Tobacco smoking status No Smoking Status Entered [facility] Sex Assigned At Male [facility] Start: 04-02-2022 End: 04-12-2022 Tobacco smoking status MOIS Never smoked tobacco (finding) 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 Work Phone: 03-16-2022 Functional status Patient at Baseline [facility] Work Phone: Mental Status Date Assessment Result Facility 04-09-2022 Cognitive function Cognitive Sta tus Patient at Baseline [facility] Work Phone: 03-16-2022 Cognitive function Cognitive Sta tus Patient at Baseline [facility] Work Phone: Clinical Notes 2021 to 05-03-2022 Peter Molina DO - 05/03/2022 9:41 AM EDT Note Date & Type Note Facility 05-03-2022 History of Presen t illness Narrative Images from the original note were not included. EMERGENCY TRIAGE, TREAT AND TRANSPORT (ET3) DOCUMENTATION OF TELEHEALTH VISIT Date / Time: 05/01/2022 06 Name: Evelin Patterson : 1955 SSN: [id number] EMS Agency: [facility] [x] Verbal consent obtained [] Implied [...] Peter Molina DO documented in this encounter [facility] 04-08-2022 Progress note Note Date/Time April 08, 2022 1:38pm [facility] [address] [place] [address] Hospitalist Progress Note Signed Patient: Evelin Patterson MR#: [id number] : 1955 Acct:[id number] Age/Sex: 66 / M Adm Date: 2 Loc: Room: [address] [place] [address] Type: ADM INOo Attending Dr: Lupe Hernandez [...] By: <Electronically signed by Lupe Hernandez MD> 04/08/[address] [facility] Work Phone: 1(169) 842-151008-28-2022 Discharge summary Author Luke Moran [facility] April 07, 2022 4:16pm Note Date/Time April 05, 2022 10 :05am [facility] [address] [place] [address] Discharge Summary Signed with Addenda Patient: Evelin Patterson MR#: [id number] : 1955 Acct:[id number] Age/Sex: 66 / M Adm Date: 2 Loc: Room: [address] [place] [address]: Luke Moran MD Copies to: [...] 10:24: POC Glucose 271 04/03/22 07:34: Free [place] LC, Quant 93.9 H, Free Lambda LC, Quant 61.6 H, Free [place]/Lambda Ratio 1.52 Exam Physical Exam Vital Signs: Temp Pulse Resp BP Pulse Ox O2 Del Method O2 Flow Rate 97.9 F 85 20 134/76 90 L Room Air 2 04/05/22 08:00 04/05/22 08:00 04/05/22 08:00 04/05/22 08:00 04/05/22 08:00 04/05/22 08:00 04/05/22 08:00 FiO2 30 04/04/22 22:34 Discharge Plan Discharge Plan Patient Disposition: Assisted Facility Activity: Ambulate as Tolerated Diet: Diabetic and Low-Sodium Additional Instructions: Please have company providing CPAP machine fit the patient with a mask that he can tolerate. Use a CPAP of 8 whenever asleep until the sleep study performed. Assisted Facility to manage care: - Full code [...] 150 0RF Rx Instructions: As Directed (DME) Johnji Lancet-Glucose Test Strp 30 gauge Combo Pack [...] Instructions: Sliding Scale ACHS Other Ambulatory Orders: BREAD ICER polysom procedure (Routine) Timeframe: 3 Weeks Location: Determined by Patient Ordered By: Luke Moran Follow Up: [facility] [Outside] ([facility] or Central Scheduling will call you to arrange date/time for sleep study. ) Documented By: Luke Moran MD 04/07/22 0959 Signed By: <Electronically signed by Luke Moran MD> 04/07/[address] [facility] Work Phone: 1(724) 167-852608-27-2022 Progress note Author Luke Moran [facility] April 06, 2022 2:50pm Note Date/Time April 06, 2022 2: 50pm [facility] [address] [place] [address] Hospitalist Progress Note Signed Patient: Evelin Patterson MR#: [id number] : 1955 Acct:[id number] Age/Sex: 66 / M Adm Date: 2 Loc: Room: [address] [place] [address] Type: ADM INOo Attending Dr: Luke Moran [...] Administration Flush Documented By: Luke Moran MD 04/06/221447 Signed By: <Electronically signed by Luke Moran MD> 04/06/22 2357 [facility] Work Phone: 1(119) 784-884808-25-2022 Progress note Author Luke Moran [facility] April 04, 2022 4:25pm Note Date/Time April 04, 2022 4: 25pm [facility] [address] [place] [address] Hospitalist Progress Note Signed Patient: Evelin Patterson MR#: [id number] : 1955 Acct:[id number] Age/Sex: 66 / M Adm Date: 2 Loc: 3T Room: [address] [place] [address] Type: ADM INOo Attending Dr: Luke Moran [...] <Electronically signed by Luke Moran MD> 04/04/221624 [facility] Work Phone: 1(636) 865-413108-24-2022 Progress note Author Luke Moran [facility] April 03, 2022 2:05pm Note Date/Time April 03, 2022 2: 05pm [facility] [address] [place] [address] Hospitalist Progress Note Signed Patient: Evelin Patterson MR#: [id number] : 1955 Acct:[id number] Age/Sex: 66 / M Adm Date: 2 Loc: Room: [address] [place] [address] Type: ADM INOo Attending Dr: Luke Moran [...] Flush Documented By: Luke Moran MD 04/03/22 1405 Signed By: <Electronically signed by Luke Moran MD> 04/03/[address] [facility] Work Phone: 1(134) 711-146208-23-2022 History and physical note Author Luke Moran [facility] April 02, 2022 7:48pm Note Date/Time April 02, 2022 7: 45pm [facility] [address] [place] [address] Hospitalist H&P Signed Patient: Evelin Patterson MR#: [id number] : 1955 Acct:[id number] Age/Sex: 66 / M Adm Date: 2 Loc: ER Room: Type: [facility] ER Attending Dr: Copies to: MD Jair [...] type 2 Anxiety disorder Hypertension Atrial fibrillation [facility] Vaccinated for COVID-19?: No Medical History Abdominal mass Anxiety Arthritis Back pain Cirrhosis Colonoscopy planned Deviated nasal septum Diabetes mellitus, type 2 Eczema History of left heart catheterization Pneumonia Surgical History History of cholecystectomy History of hydrocelectomy History of lithotripsy History of nasal surgery Family History Mother Cancer Social History Smoking Status: Never smoker Substance Use Type: None Social History Comments: [facility] in [facility] Medications and Allergies Allergies metformin Adverse Reaction [...] % (Auto) 8.7 % (.) 04/02/22 17:51 [place] % (Auto) 12.2 % (.) 04/02/22 17:51 Eos % (Auto) 2.4 % (.) 04/02/22 17:51 Baso % (Auto) 0.6 % (.) 04/02/22 17:51 Neut # (Auto) 6.4 x10E3/uL (1.8-7.7) 04/02/22 17:51 Lymph # (Auto) 0.7 x10E3/uL (1.00-4.8) L 04/02/22 17:51 [place] # (Auto) 1.0 x10E3/uL (0.0-0.8) H 04/02/22 [...] <Electronically signed by Luke Moran MD> 04/02/221947 [facility] Work Phone: 1(722) 845-604408-06-2022 Discharge summary Author Xin Phan [facility] March 16, 2022 9:37am Note Date/Time March 16, 2022 9:3 7am [facility] [address] [place] [address] Discharge Summary Signed Patient: Evelin Patterson MR#: [id number] : 1955 Acct:[id number] Age/Sex: 66 / M Adm Date: 2 Loc: 3T Room: [address] [place] [address]: Xin Phan MD Copies to: [...] anxiety and depression who was transferred from [facility] for acute kidney injury.? Patient presented with generalized weakness and disorientation at [facility]. He was noted to have [...] headache or dizziness.? No fevers Paperwork from [facility] reviewed, chest x-ray with no [...] apnea Instructions: Blood Glucose Monitoring, [facility] COVID-19 Discharge Instructions Prescriptions: New Levemir FlexTouch [...] from discharge.) Documented By: Xin Phan MD 03/16/2234 Signed By: <Electronically signed by Xin Phan MD> 03/16/[address] [facility] Work Phone: 1([phone]) 143-358008-05-2022 [facility] March 15, 2022 3:43pm Note Date/Time March 15, 2022 3:3 7pm [facility] [address] [place] [address] Nephrology Progress Note Signed Patient: Evelin Patterson MR#: [id number] : 1955 Acct:[id number] Age/Sex: 66 / M Adm Date: 2 Loc: Room: [address] [place] [address] Type: ADM IN Attending Dr: Xin Phan MD Copies to: ~ Date of Service: 03/15/2022 Subjective Subjective Narrative: This is 66-year-old male patient with a past medical history of morbid obesity, endocarditis, paroxysmal A. fib, diabetes type 2, anxiety and depression and chronic kidney disease stage III. Patient presented to [facility] with feeling weak and disoriented for 2 weeks which has gotten worse. Patient has been having cough with decreased appetite and loss of taste for a week. Lab at [facility] shows acute kidney injury with creatinine up to 4.3 mg/dL along with hyperglycemia with initial blood glucose level more than 400. Patient's blood pressure was in the 80s at [facility]. Patient was given IV fluid and transferred [...] 97 Room Air 1 03/15/22 12:00 03/15/22 12:03/15/22 12:03/15/22 12:03/15/22 12:03/15/22 12:03/14/22 16:00 Narrative: General: No [...] 500 Mg Tablet) 500 mg PO DAILY [facility] Stop: 03/14/23 08:59 Last Admin: 03/15/22 08:34 Dose: 500 mg Dexamethasone 2 mg/ (Dexamethasone 4 mg) 6 mg PO DAILY [facility] Stop: 03/22/23 08:59 Last Admin: 03/15/22 08:34 [...] 5,000 Unit/Ml Vial) 5,000 unit SUBCUT Q12HR [facility] Stop: 03/14/23 08:59 Last Admin: 03/15/22 08:34 Dose: 5,000 unit Sodium Chloride (0.9% Sodium Chloride 1,000 Ml) 1,000 mls @ 100 mls/hr IV .[id number] Stop: 03/14/23 01:59 Last Admin: 03/15/22 06:46 Dose: 100 mls/hr Insulin Aspart (Insulin Aspart 300 Units/3 Ml Insuln.Pen) 0 units SUBCUT TID[facility]; Protocol Stop: 03/14/23 07:59 Last Admin: [...] question Documented By: Sarah Osuna MD 03/15/22 153 Signed By: <Electronically signed by Sarah Osuna MD> 03/15/[address] [facility] Work Phone: 1(778) 320-925208-05-2022 Progress note Author Xin Phan [facility] March 15, 2022 12:44pm Note Date/Time March 15, 2022 12: 44pm [facility] [address] [place] [address] Hospitalist Progress Note Signed Patient: Evelin Patterson MR#: [id number] : 1955 Acct:[id number] Age/Sex: 66 / M Adm Date: 2 Loc: Room: [address] [place] [address] Type: ADM IN Attending Dr: Xin Phan MD Copies to: ~ Date of Service: 03/15/2022 Subjective Subjective Narrative: Patient is a 66-year-old male, with a PMHx of Morbid obesity, endocarditis in August of this year, atrial fibrillation, type 2 diabetes, hypertension, liver cirrhosis, anxiety and depression who was transferred from [facility] for acute kidney injury. Patient presented with generalized weakness and disorientation at [facility]. He was noted to have [...] headache or dizziness. No fevers Paperwork from [facility] reviewed, chest x-ray with no [...] secondary to poor oral intake. Presented at [facility] with low blood pressures in the 80s. ?Creatinine at [facility] 4.34. Baseline creatinine ~1.4 - [...] noncompliance to diabetic diet ?Blood sugar at [facility] was in the 400s ? Will [...] signed by Xin Phan MD> 03/15/22 1244 [facility] Work Phone: 1(203) 569-750008-04-2022 Progress note Author Renato Looney [facility] March 14, 2022 2:14pm Note Date/Time March 14, 2022 2:1 4pm [facility] [address] [place] [address] Progress Note Signed Patient: Evelin Patterson MR#: [id number] : 1955 Acct:[id number] Age/Sex: 66 / M Adm Date: 2 Loc: Room: [address] [place] [address] Type: ADM IN Attending Dr: Renato Looney MD Copies to: ~ Date of Service: 03/14/2022 Progress Narrative Note PROGRESS NOTE Progress Note: Patient seen and evaluated by bleach machine operator early this morning and also by myself. Briefly, patient is a 66-year-old male past medical history significant for obesity, atrial fibrillation, hypertension, diabetes, liver cirrhosis, mood disorder and recent endocarditis infection who [facility] due to generalized weakness found to have COVID-19 and acute kidney injury and was transferred to [facility] for further evaluation and management. 1. Acute [...] signed by Renato Looney MD> 03/14/[address] [facility] Work Phone: [phone]) [phone] Consult note Author Sarah Osuna [facility] March 14, 2022 12:30pm Note Date/Time March 14, 2022 12: 30pm [facility] [address] [place] [address] Nephrology Consult Note Signed Patient: Evelin Patterson MR#: [id number] : 1955 Acct:[id number] Age/Sex: 66 / M Adm Date: 2 Loc: 3T Room: [address] [place] [address] Type: ADM IN Attending Dr: Rneato Looney MD Copies to: MD Renato Engel [...] kidney disease stage III. Patient presented to [facility] with feeling weak and disoriented for 2 weeks which has gotten worse. Patient has been having cough with decreased appetite and loss of taste for a week. Lab at [facility] shows acute kidney injury with creatinine up to 4.3 mg/dL along with hyperglycemia with initial blood glucose level more than 400. Patient's blood pressure was in the 80s at [facility]. Patient was given IV fluid and transferred [...] Type: None Social History Comments: [facility] Medications & Allergies Allergies metformin Adverse Reaction [...] 500 Mg Tablet) 500 mg PO DAILY [facility] Stop: 03/14/23 08:59 Last Admin: 03/14/22 08:34 Dose: 500 mg Dexamethasone 2 mg/ (Dexamethasone 4 mg) 6 mg PO DAILY [facility] Stop: 03/22/23 08:59 Last Admin: 03/14/22 08:33 [...] 5,000 Unit/Ml Vial) 5,000 unit SUBCUT Q12HR [facility] Stop: 03/14/23 08:59 Last Admin: 03/14/22 08:39 Dose: 5,000 unit Sodium Chloride (0.9% Sodium Chloride 1,000 Ml) 1,000 mls @ 100 mls/hr IV .[id number] Stop: 03/14/23 01:59 Last Admin: 03/14/22 03:26 Dose: 100 mls/hr Insulin Aspart (Insulin Aspart 300 Units/3 Ml Insuln.Pen) 0 units SUBCUT TID.[facility]; Protocol Stop: 03/14/23 07:59 Last Admin: [...] Michael Tinajero M.D.03/14/2022 8:24 AM Dictation Location: [place] [address] Any impression(s) listed above is documentation that [...] signed by Sarah Osuna MD> 03/14/[address] [facility] Work Phone: [phone] 162-713208-04-2022 History and physical note Author Mary Jane Riley [facility] March 14, 2022 6:40am Note Date/Time March 14, 2022 2:0 2am [facility] [address] [place] [address] Hospitalist H&P Signed Patient: Evelin Patterson MR#: [id number] : 1955 Acct:[id number] Age/Sex: 66 / M Adm Date: 2 Loc: Room: [address] [place] [address] Type: ADM IN Attending Dr: Mary Jane Hanna MD Copies to: MD Leah Marin APRN Marc Naderer, MD~ HPI DATE OF EXAMINATION: 03/14/22 CHIEF COMPLAINT: FRANC HISTORY OF PRESENT ILLNESS: Patient is a 66-year-old male, with a PMHx of Morbid obesity, endocarditis in August of this year, atrial fibrillation, type 2 diabetes, hypertension, liver cirrhosis, anxiety and depression who was transferred from [facility] for acute kidney injury. Patient presented with generalized weakness and disorientation at [facility]. He was noted to have [...] headache or dizziness. No fevers Paperwork from [facility] reviewed, chest x-ray with no acute cardiopulmonary process. Sodium 129. Potassium 3.3. Creatinine 2.52. WBC 6.8. Hemoglobin 12.5. Glucose 4.34. Patient will be admitted by the hospitalist team for further evaluation and management. Review of Systems Review of Systems Review of systems: 10 point review of systems obtained, negative unless noted in the HPI or below [facility] Medical History Abdominal mass Anxiety Arthritis Back pain Cirrhosis Colonoscopy planned Deviated nasal septum Diabetes mellitus, type 2 Eczema History of left heart catheterization Pneumonia Surgical History History of cholecystectomy History of hydrocelectomy History of lithotripsy History of nasal surgery Family History Mother Cancer Social History Smoking Status: Never smoker Substance Use Type: None Social History Comments: Lives in [facility] Medications and Allergies Allergies metformin Adverse Reaction [...] secondary to poor oral intake. Presented at [facility] with low blood pressures in the 80s. ?Creatinine at [facility] 4.34. Baseline creatinine ~1.4 ?Urine sodium, creatinine, urea pending ? Urine output monitoring ? Start IV fluids ? Hold home lisinopril and renally adjust medications ?Consider renal ultrasound if no improvement ? Nephrology consult ?Monitor BMP COVID-19 positive -unvaccinated. ? Presented with productive cough, hypoxia, loss of taste and generalized weakness ? Afebrile, no leukocytosis ? Chest x-ray from [facility] did not show any acute [...] plan of care and confirmed the resident's/internal sales engineer/medical student's dictation/written note. Patient is a 66-year-old [...] Signed By: <Electronically signed by KATT Huang> 03/14/22313 <Electronically signed by Mary Jane Hanna MD> 03/14/22 0640 [facility] Work Phone: 1([phone]) 523-770904-19-2022 Progress note Author Lupe Hernandez [facility] April 09, 2022 3:32pm Note Date/Time April 09, 2022 1: 08pm [facility] [address] [place] [address] Hospitalist Progress Note Signed with Addenda Patient: Evelin Patterson MR#: [id number] : 1955 Acct:[id number] Age/Sex: 66 / M Adm Date: 2 Loc: Room: [address] [place] [address] Type: DIS INOo Attending Dr: Lupe Hernandez MD Copies to: ~ ADDENDUM1 Patient was personally seen by me on the day of encounter, reviewed his history and performed lnog elements of exam and formulated the plan [...] to thrive, paroxysmal A. fib, CKD 3, mvs-bwxvmog-dxyhbjbes diabetes, CHF is being monitored on the floor while a hqkw-qs-mizw was had with regards to the patient's [...] signed by Lupe Hernandez MD> 04/09/22 1531 [facility] Work Phone: Discharge summary Author Luke Moran [facility] April 07, 2022 4:16pm Note Date/Time April 05, 2022 10 :05am [facility] [address] [place] [address] Discharge Summary Signed with Addenda Patient: Evelin Patterson MR#: [id number] : 1955 Acct:[id number] Age/Sex: 66 / M Adm Date: 2 Loc: Room: [address] [place] [address]: Luke Moran MD Copies to: [...] 10:24: POC Glucose 271 04/03/22 07:34: Free [place] LC, Quant 93.9 H, Free [place] LC, Quant 61.6 H, Free [place]/Lambda Ratio 1.52 Exam Physical Exam Vital Signs: Temp Pulse Resp BP Pulse Ox O2 Del Method O2 Flow Rate 97.9 F 85 20 134/76 90 L Room Air 2 04/05/22 08:00 04/05/22 08:00 04/05/22 08:00 04/05/22 08:00 04/05/22 08:00 04/05/22 08:00 04/05/22 08:00 FiO2 30 04/04/22 22:34 Discharge Plan Discharge Plan Patient Disposition: Assisted Facility Activity: Ambulate as Tolerated Diet: Diabetic and Low-Sodium Additional Instructions: Please have company providing CPAP machine fit the patient with a mask that he can tolerate. Use a CPAP of 8 whenever asleep until the sleep study performed. Assisted Facility to manage care: - Full code [...] Instructions: Sliding Scale ACHS Other Ambulatory Orders: BREAD ICER polysom procedure (Routine) Timeframe: 3 Weeks Location: Determined by Patient Ordered By: Luke Moran Follow Up: [facility] Sleep Lab [Outside] ([facility] or Central Scheduling will call you to arrange date/time for sleep study. ) Documented By: Luke Moran MD 04/07/22 0961 Signed By: <Electronically signed by Luke Moran MD> 04/07/22 1610 [facility] Work Phone: Evaluation + Plan note No data available for this section [facility] Evaluation note* Diagnosis Onset Date Resolution [...] Unable to care for self acut e [facility] Work Phone: Evaluation note* Diagnosis Hypotension, unspecified hypotension type- Primary Fall, initial encounter Refusal of treatment Surgical or other procedure not carried out because of patient's decision documented in this encounter [facility] information available[facility] Work Phone: Hospital Discharge instructions No data available for this section [facility] Hospital Discharge instructionsAmbulatory Orders* Initiate Home Health Time Frame: 04/09/22, Location: Determined By Patient Additional Instructions Please wear home oxygen at 2l at all times. HOME HEALTH TO MANAGE: Nursing/PT/OT/Aide/Survey Questionnaire Designer to eval and treat Monitor VS per protocol Maintain home oxygen at 2l continuous *Oxygen therapy is new, educate patient on Monitor Respiratory assessment Assist with medication management and provide medication education Assist with glucose control Skin care TID: *Theraworx protect to bilateral groin and abdominal fold redness. *Educate patient on Provide education on high risk fall precautions [facility] Work Phone: Hospital Discharge instructions Additional Instructions If your symptoms return/worsen or you develop any further concerns or symptoms please see your doctor or return to the emergency department immediately.[facility] Work Phone: Progress note No data available for this section [facility] Progress note Author Sarah Osuna [facility] March 16, 2022 12:40pm Note Date/Time March 16, 2022 12: 36pm [facility] [address] [place] [address] Nephrology Progress Note Signed Patient: Evelin Patterson MR#: [id number] : 1955 Acct:[id number] Age/Sex: 66 / M Adm Date: 2 Loc: 3T Room: [address] [place] [address] Type: ADM IN Attending Dr: Xin Phan MD Copies to: ~ Date of Service: 03/16/2022 Subjective Subjective Narrative: This is 66-year-old male patient with a past medical history of morbid obesity, endocarditis, paroxysmal A. fib, diabetes type 2, anxiety and depression and chronic kidney disease stage III. Patient presented to [facility] with feeling weak and disoriented for 2 weeks which has gotten worse. Patient has been having cough with decreased appetite and loss of taste for a week. Lab at [facility] shows acute kidney injury with creatinine up to 4.3 mg/dL along with hyperglycemia with initial blood glucose level more than 400. Patient's blood pressure was in the 80s at [facility]. Patient was given IV fluid and transferred [...] Q12HR [facility] Stop: 03/14/23 08:59 Last Admin: 03/16/22 08:09 Dose: Not Given Insulin Aspart (Insulin Aspart 300 Units/3 Ml Insuln.Pen) 0 units SUBCUT TID.WM.[facility]; Protocol Stop: 03/14/23 07:59 Last Admin: 03/16/22 11:57 Dose: 8 units Insulin Detemir (Insulin Detemir 300 Units/3 Ml Insuln.Pen) 40 units SUBCUT DAILY.WITH.BKFAST [facility] Stop: 03/16/23 07:59 Last Admin: 03/16/22 08:10 Dose: 40 units Zinc Sulfate (Zinc Sulfate 220 Mg Capsule) 220 mg PO DAILY [facility] Stop: 03/14/23 08:59 Last Admin: 03/16/22 08:08 [...] signed by Sarah Osuna MD> 03/16/[address] [facility] Work Phone: Progress note Author Luke Moran [facility] April 03, 2022 2:05pm Note Date/Time April 03, 2022 2: 05pm [facility] [address] [place] [address] Hospitalist Progress Note Signed Patient: Evelin Patterson MR#: [id number] : 1955 Acct:[id number] Age/Sex: 66 / M Adm Date: 2 Loc: Room: [address] [place] [address] Type: ADM INOo Attending Dr: Luke Moran [...] signed by Luke Moran MD> 04/03/[address] [facility] Work Phone: Progress note Author Luke Moran [facility] April 04, 2022 4:25pm Note Date/Time April 04, 2022 4: 25pm [facility] [address] [place] [address] Hospitalist Progress Note Signed Patient: Evelin Patterson MR#: [id number] : 1955 Acct:[id number] Age/Sex: 66 / M Adm Date: 2 Loc: Room: [address] [place] [address] Type: ADM INOo Attending Dr: Luke Moran [...] Flush Documented By: Luke Moran MD 04/04/22 6762 Signed By: <Electronically signed by Luke Moran MD> 04/04/[address] [facility] Work Phone: Progress note Author Luke Moran [facility] April 06, 2022 2:50pm Note Date/Time April 06, 2022 2: 50pm [facility] [address] [place] [address] Hospitalist Progress Note Signed Patient: Evelin Patterson MR#: [id number] : 1955 Acct:[id number] Age/Sex: 66 / M Adm Date: 2 Loc: 3T Room: [address] [place] [address] Type: ADM INOo Attending Dr: Luke Moran [...] <Electronically signed by Luke Moran MD> 04/06/22 7330 [facility] Work Phone: Progress note Author Lupe Hernandez [facility] April 08, 2022 1:38pm Note Date/Time April 08, 2022 1: 38pm [facility] [address] [place] [address] Hospitalist Progress Note Signed Patient: Evelin Patterson MR#: [id number] : 1955 Acct:[id number] Age/Sex: 66 / M Adm Date: 2 Loc: 3T Room: [address] [place] [address] Type: ADM INOo Attending Dr: Lupe Hernandez [...] signed by Lupe Hernandez MD> 04/08/[address] [facility] Work Phone: Chief Complaint [...] and content) DATE CREATED AUTHOR 05/08/2022 [facility] DATE CREATED AUTHOR AUTHOR'S ORGANIZ ATION 12/23/2022 [facility] DATE CREATED AUTHOR AUTHOR'S ORGANIZ ATION 04/12/[address] [facility] DATE CREATED AUTHOR AUTHOR'S ORGANIZ ATION 09/17/2023 [facility] DATE CREATED AUTHOR AUTHOR'S ORGANIZ ATION 03/16/2024 [facility] Reason for Visit (unrecogniz ed section and [...] BE BASED ON THE PRIMARY CLINICAL RECORDS. [facility] [employer] [facility]. provides no warranty or guarantee of the accuracy or completeness of information in this document.
[2024-03-25 17:36] LABS: Basophils Absolute Auto 0.1 10^3/uL (0.0-0.1); Basophils Percent Auto 1.2 % (0.2-2.0); Eosinophils Absolute Auto 0.5 10^3/uL (0.0-0.7); Eosinophils Percent Auto 7.4 % (0.9-7.0); Hematocrit 34.7 % (42.0-54.0); Hemoglobin 11.2 g/dL (14.0-18.0); Immature Granulocytes Abs Auto 0.02 10^3/uL (0.00-0.03); Immature Granulocytes Pct Auto 0.3 % (0.0-0.5); Lymphocytes Absolute Auto 1.3 10^3/uL (1.2-3.8); Lymphocytes Percent Auto 20.3 % (20.5-60.0); Mean Corpuscular HGB Conc 32.3 g/dL (29.9-35.2); Mean Corpuscular Hemoglobin 29.6 pg (25.9-34.0); Mean Corpuscular Volume 91.6 fL (80.0-94.0); Mean Platelet Volume 9.7 fL (9.5-13.5); Monocytes Absolute Auto 0.6 10^3/uL (0.3-0.8); Monocytes Percent Auto 8.6 % (1.7-12.0); Neutrophils Percent Auto 62.2 % (43.0-75.0); Platelet Count 164 10^3/uL (150-450); Red Blood Count 3.79 10^6/uL (4.70-6.10); Red Cell Distribution Width 16.2 % (11.0-15.0); White Blood Count 6.5 10^3/uL (4.0-11.0)
[2024-03-25] MEDS: KETOROLAC TROMETHAMINE 30 MG/ML VIAL IM (17:45)
[2024-03-25 17:53] LABS: Alanine Aminotransferase 21 U/L (16-63); Albumin Globulin Ratio 0.5; Albumin Level 2.6 g/dL (3.4-5.0); Alkaline Phosphatase 210 U/L (46-116); Anion Gap 7.3; Aspartate Amino Transferase 29 U/L (15-37); BUN Creatinine Ratio 16.8; Bilirubin Total 0.7 mg/dL (0.2-1.0); Calcium 8.6 mg/dL (8.5-10.1); Carbon Dioxide 30.8 mmol/L (21.0-32.0); Chloride 102 mmol/L (98-107); Estimated GFR (African America >60 (>=60); Estimated GFR (Non-African Ame >60 (>=60); Glucose 161 mg/dL (74-106); Potassium 4.1 mmol/L (3.5-5.1); Sodium 136 mmol/L (136-145); Total Protein 7.6 g/dL (6.4-8.2)
== END 2024-03-25 19:22 | disposition home or self-care (01) ==
PROVIDERS: Nurse Practitioner Family; Emergency Provider Emergency Medicine; PCP Nurse Practitioner Family
DX: S22.079A Unspecified fracture of T9-T10 vertebra, initial encounter for closed fracture (principal); R10.9 Unspecified abdominal pain; M54.9 Dorsalgia, unspecified; R07.89 Other chest pain; W01.10XA Fall on same level from slipping, tripping and stumbling with subsequent striking against unspecified object, initial encounter
CPT/HCPCS: 36415; 71110; 72072; 72100; 80053; 83690; 85025; 96372; 99284; J1885

== ENCOUNTER 2024-04-02 12:05 | Outpatient (OUT) | payer MEDICARE, MEDICAID, SELFPAY ==
--- OUTSIDE RECORDS SUMMARY | 2024-04-02 12:13 | XMS_ITS | CCD ---
Author Organization [facility] Inform ion Partnership [facility] Care Team Providers Care Claims Support Specialist Name Role Phone JEFF CARLOS Primary Care Physician MD Ayden Freeman Primary Care Provider Al MD Mary Jane Campbell Admit Provider MD Syed Osunaiz Other Provider MD Xin Phan Attending Provider DO Jair Gabriel Emergency Provider MD Luke Moran Admit Provider MD Lupe Hernandez Attending Provider [phone] DO Ramesh Byrd Emergency Provider PROVIDER, UNKNOWN [...] Attending Unavailable CHIKIS ., HINA Admitting Unavailable Keuqan, Ramesh Haney Attending Unavailable Kequan, Ramesh Haney Admitting Unavailable Naderearmida, Ayden Primary Care Unavailable NADERER, AYDEN Attending Unavailable Allergies Allergy Classification Reported Allergen(s) Allergy Type Date of Onset Reaction(s) Facility (8 sources) metFORMIN; Translations: [metformin] Drug Allergy 2 [facility] (6 sources) Prochlorperazine; Translations: [prochlorperazine] Drug Allergy 2 [facility] (2 sources) Prochlorperazine Drug Allergy [facility] Repository Medications Current Medications Medication [...] PO Q6H 0 April 04, 2022 12:00am [id number] 200 actuat albuterol 0.09 mg/actuat metered dose [...] by mouth four times daily Hydrocodone-Aceta minophen ([place]) 5-325 mg Tablet Discontinued 1 TAB PO [...] 09, 2022 12:27pm Sliding Scale ACHS nystatin [id number] unt/ml oral suspension (10 sources) Polyene Antifungal [...] disease (1 source) Atherosclerotic heart disease of [place] coronary artery without angina pectoris; Translations: [ASHD [place] W/O ANGINA PECTORIS] Onset: 05-20-2022 Chronic [...] 05-29-2022 Chronic Other aftercare (1 source) 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 It is important that you return our call regarding a referral upon receiving this letter. Also, at the time of your call, please provide us with your current information. Thank you for your prompt attention to this matter. Sincerely, Dr. Javid Haynes MD General Surgery [facility] CBC AUTO DIFFon 12-19-2022 BASO # 0.1 103/ul Normal 0.0-0.1 [facility] Comment on above: Performed By: #### T SH, BMP #### [facility] [address] [place] [address] Dr. Ladan Diehl Basophils/100 WBC (Bld) 1.2 % Normal 0.2-2.0 [facility] Comment on above: Performed By: #### T SH, BMP #### [facility] [address] [place] [address] Dr. Ladan Diehl EO # 0.4 103/ul Normal 0.0-0.7 [facility] Comment on above: Performed By: #### T SH, BMP #### [facility] [address] [place] [address] Dr. Ladan Diehl Eosinophils/100 WBC (Bld) 4.9 % Normal 0.9-7.0 [facility] Comment on above: Performed By: #### T SH, BMP #### [facility] [address] [place] [address] Dr. Ladan Diehl Erythrocyte distribution width (RBC) [Ratio] 14.8 % Normal 11.0-15.0 [facility] Comment on above: Performed By: #### T SH, BMP #### [facility] [address] [place] [address] Dr. Ladan Diehl Hematocrit (Bld) [Volume fraction] 36.7 % Critically low 42.0-54.0 [facility] Comment on above: Performed By: #### T SH, BMP #### [facility] [address] [place] [address] Dr. Ladan Diehl Hemoglobin (Bld) [Mass/Vol] 12.0 g/dL Critically low 14.0-18.0 [facility] Comment on above: Performed By: #### T SH, BMP #### [facility] [address] [place] [address] Dr. Ladan Diehl IG # 0.01 10e3/ul Normal 0.00-0.03 [facility] Comment on above: Performed By: #### T SH, BMP #### [facility] [address] [place] [address] Dr. Ladan Diehl IG % 0.1 % Normal 0.0-0.5 [facility] Comment on above: Performed By: #### T STEFF, BMP #### [facility] [address] [place] [address] Dr. Ladan Diehl LYMPH # 2.0 103/ul Normal 1.2-3.8 [facility] Comment on above: Performed By: #### T STEFF, BMP #### [facility] [address] [place] [address] Dr. Ladan Diehl Lymphocytes/100 WBC (Bld) 27.1 % Normal 20.5-60.0 [facility] Comment on above: Performed By: #### T STEFF, BMP #### [facility] [address] [place] [address] Dr. Ladan Diehl MANUAL DIFF REQ NO Normal [facility] Comment on above: Performed By: #### T STEFF, BMP #### [facility] [address] [place] [address] Dr. Ladan Diehl MCH (RBC) [Entitic mass] 29.6 pg Normal 25.9-34.0 [facility] Comment on above: Performed By: #### T SH, BMP #### [facility] [address] [place] [address] Dr. Ladan Diehl MCHC (RBC) [Mass/Vol] 32.7 g/dL Normal 29.9-35.2 [facility] Comment on above: Performed By: #### T STEFF, BMP #### [facility] [address] [address] [address] Ladan Diehl MCV (RBC) [Entitic vol] 90.6 fL Normal 80.0-94.0 [facility] Comment on above: Performed By: #### T SH, BMP #### [facility] [address] [place] [address] Dr. Ladan Diehl MONO # 0.8 103/ul Normal 0.3-0.8 [facility] Comment on above: Performed By: #### T SH, BMP #### [facility] [address] [place] [address] Dr. Ladan Diehl Monocytes/100 WBC (Bld) 10.4 % Normal 1.7-12.0 [facility] Comment on above: Performed By: #### T SH, BMP #### [facility] [address] [place] [address] Dr. Ladan Diehl NEUT # 4.2 103/ul Normal 1.4-6.5 [facility] Comment on above: Performed By: #### T SH, BMP #### [facility] [address] [place] [address] Dr. Ladan Diehl Neutrophils/100 WBC (Bld) 56.3 % Normal 43.0-75.0 [facility] Comment on above: Performed By: #### T SH, BMP #### [facility] [address] [place] [address] Dr. Ladan Diehl Platelet mean volume (Bld) [Entitic vol] 9.9 fL Normal 9.5-13.5 [facility] Comment on above: Performed By: #### T SH, BMP #### [facility] [address] [place] [address] Dr. Ladan Diehl PLT 227 103/ul Normal 150-450 [facility] Comment on above: Performed By: #### T SH, BMP #### [facility] [address] [place] [address] Dr. Ladan Diehl RBC 4.05 106/ul Critically low 4.70-6.10 [facility] Comment on above: Performed By: #### T SH, BMP #### [facility] [address] [place] [address] Dr. Ladan Diehl WBC 7.4 103/ul Normal 4.0-11.0 [facility] Comment on above: Performed By: #### T SH, BMP #### [facility] [address] [place] [address] Dr. Ladan Diehl FREE T3on 12-19-2022 FREE T3 2.07 pg/mlL Critically low 2.18-3.98 [facility] Comment on above: Performed By: #### T SH, BMP #### [facility] [address] [place] [address] Dr. Ladan Diehl FREE T4on 12-19-2022 Free T4 [Mass/Vol] 1.14 ng/dL Normal 0.76-1.46 [facility] Comment on above: Performed By: #### T STEFF, BMP #### [facility] [address] [place] [address] Dr. Ladan Diehl GLYCOHEMOGLOBIN A1Con 2022 ADA RECOMMENDATION SEE BELOW Normal [facility] Comment on above: Result Comment: ADA RECOMMENDED LIMIT 4.0 - 6.0 ADA THERAPEUTIC TARGET < 7.0 ACTION SUGGESTED > 7.0 Performed By: #### T STEFF, BMP #### [facility] [address] [place] [address] Dr. Ladan Diehl Glucose [Mass/Vol] 134 mg/dL Normal [facility] Comment on above: Performed By: #### T STEFF, BMP #### [facility] [address] [place] [address] Dr. Ladan Diehl HbA1c (Bld) [Mass fraction] 6.3 % Critically high 4.5-6.2 [facility] Comment on above: Performed By: #### T STEFF, BMP #### [facility] [address] [place] [address] Dr. Ladan Diehl LIPID PROFILEon 12-19-2022 CHOL-HDL RATIO NORM SEE BELOW Normal [facility] Comment on above: Result Comment: 3.3 - 4.4 LOW RISK 4.4 - 7.1 AVERAGE RISK 7.1 - 11.0 MODERATE RISK >11.0 HIGH RISK Performed By: #### T SH, BMP #### [facility] [address] [address] [address] Ladan Diehl Cholesterol [Mass/Vol] 118 mg/dL Normal <=200 [facility] Comment on above: Performed By: #### T SH, BMP #### [facility] [address] [address] [address] Ladan Diehl Cholesterol in HDL [Mass/Vol] 43 mg/dL Normal 40-60 [facility] Comment on above: Performed By: #### T SH, BMP #### [facility] [address] [address] [address] Ladan Diehl Cholesterol in LDL [Mass/Vol] 48.8 mg/dL Normal [facility] Comment on above: Performed By: #### T SH, BMP #### [facility] [address] [place] [address] Dr. Ladan Diehl Cholesterol.total/Choles terol in HDL [Mass ratio] 2.7 {ratio} Normal [facility] Comment on above: Performed By: #### T SH, BMP #### [facility] [address] [address] [address] Ladan Diehl HDL NORMAL > or = 60 mg/dl - LOW CARDIOVASCULAR RISK <40 mg/dl - HIGH CARDIOVASCULAR RISK Normal [facility] Comment on above: Performed By: #### T SH, BMP #### [facility] [address] [address] [address] Ladan Diehl LDL CALC NORMAL SEE BELOW Normal [facility] Comment on above: Result Comment: <100 mg/dl OPTIMAL 100 - 129 mg/dl NEAR OR ABOVE OPTIMAL 130 - 159 mg/dl BORDERLINE HIGH 160 - 189 mg/dl HIGH >190 mg/dl VERY HIGH Performed By: #### T SH, BMP #### [facility] [address] [address] [address] Ladan Diehl Triglyceride [Mass/Vol] 131 mg/dL Normal <=150 [facility] Comment on above: Performed By: #### T SH, BMP #### [facility] [address] [address] [address] Ladan Diehl VLDL CALC 26.2 mg/dL Normal [facility] Comment on above: Performed By: #### T SH, BMP #### [facility] [address] [place] [address] Dr. Ladan Diehl LIVER PROFILEon 12-19-2022 Albumin [Mass/Vol] 2.7 g/dL Critically low 3.4-5.0 Th e [facility] Comment on above: Performed By: #### T SH, BMP #### [facility] [address] [place] [address] Dr. Ladan Diehl Albumin/Globulin [Mass ratio] 0.4 {ratio} Normal [facility] Comment on above: Performed By: #### T STEFF, BMP #### [facility] [address] [place] [address] Dr. Ladan Diehl ALP [Catalytic activity/Vol] 154 U/L Critically high 46-116 [facility] Comment on above: Performed By: #### T STEFF, BMP #### [facility] [address] [place] [address] Dr. Ladan Diehl ALT [Catalytic activity/Vol] 25 U/L Normal 16-63 [facility] Comment on above: Performed By: #### T STEFF, BMP #### [facility] [address] [place] [address] Dr. Ladan Diehl AST [Catalytic activity/Vol] 38 U/L Critically high 15-37 [facility] Comment on above: Performed By: #### T STEFF, BMP #### [facility] [address] [place] [address] Dr. Ladan Diehl BILI, CONJUGATED 0.2 mg/dL Normal 0.0-0.2 [facility] Comment on above: Performed By: #### T SH, BMP #### [facility] [address] [place] [address] Dr. Ladan Diehl Bilirubin [Mass/Vol] 0.8 mg/dL Normal 0.2-1.0 [facility] Comment on above: Performed By: #### T STEFF, BMP #### [facility] [address] [place] [address] Dr. Ladan Diehl Globulin (S) [Mass/Vol] 6.2 g/dL Normal [facility] Comment on above: Performed By: #### T SH, BMP #### [facility] [address] [place] [address] Dr. Ladan Diehl Protein [Mass/Vol] 8.9 g/dL Critically high 6.4-8.2 [facility] Comment on above: Performed By: #### T SH, BMP #### [facility] [address] [place] [address] Dr. Ladan Diehl MICROALBUMIN, RAND URon 12-09 mALB 25.4 mg/dL Normal <=30.0 [facility] Comment on above: Performed By: #### T SH, BMP #### [facility] [address] [place] [address] Dr. Ladan Diehl PROF CHEM 8 (BAS METB)on Anion gap [Moles/Vol] 10.7 mmol/L Normal [facility] Comment on above: Performed By: #### T SH, BMP #### [facility] [address] [place] [address] Dr. Ladan Diehl Calcium [Mass/Vol] 9.0 mg/dL Normal 8.5-10.1 [facility] Comment on above: Performed By: #### T SH, BMP #### [facility] [address] [place] [address] Dr. Ladan Diehl Chloride [Moles/Vol] 103 mmol/L Normal 98-107 [facility] Comment on above: Performed By: #### T SH, BMP #### [facility] [address] [place] [address] Dr. Ladan Diehl CO2 [Moles/Vol] 27.5 mmol/L Normal 21.0-32.0 [facility] Comment on above: Performed By: #### T SH, BMP #### [facility] [address] [place] [address] Dr. Ladan Diehl Creatinine [Mass/Vol] 1.29 mg/dL Normal 0.70-1.30 [facility] Comment on above: Performed By: #### T SH, BMP #### [facility] [address] [address] [address] Ladan Diehl EGFR-AF BELARUSIAN >60 Normal >=60 [facility] Comment on above: Performed By: #### T SH, BMP #### [facility] [address] [address] [address] Ladan Diehl EGFR-NON AF [place]IAN 56 mL/min/1.73m2 Critically low >=60 [facility] Comment on above: Performed By: #### T SH, BMP #### [facility] [address] [address] [address] Ladan Diehl Glucose [Mass/Vol] 108 mg/dL Critically high 74-106 [facility] Comment on above: Performed By: #### T SH, BMP #### [facility] [address] [place] [address] Dr. Ladan Diehl Potassium [Moles/Vol] 4.2 mmol/L Normal 3.5-5.1 [facility] Comment on above: Performed By: #### T SH, BMP #### [facility] [address] [address] [address] Ladan Diehl Sodium [Moles/Vol] 137 mmol/L Normal 136-145 [facility] Comment on above: Performed By: #### T SH, BMP #### [facility] [address] [place] [address] Dr. Ladan Diehl Urea nitrogen [Mass/Vol] 12.0 mg/dL Normal 7.0-18.0 [facility] Comment on above: Performed By: #### T SH, BMP #### [facility] [address] [address] [address] Ladan Diehl Urea nitrogen/Creatinine [Mass ratio] 9.3 mg/mg Normal [facility] Comment on above: Performed By: #### T SH, BMP #### [facility] [address] [address] [address] Ladan Diehl TSHon 12-19-2022 TSH 8.668 uIU/mL Critically high 0.358-3.740 [facility] Comment on above: Performed By: #### T SH, BMP #### [facility] [address] [address] [address] Ladan Diehl GLYCOHEMOGLOBIN A1Con 2021 ADA RECOMMENDATION SEE BELOW Normal [facility] Comment on above: Result Comment: ADA RECOMMENDED LIMIT 4.0 - 6.0 ADA THERAPEUTIC TARGET < 7.0 ACTION SUGGESTED > 7.0 Performed By: #### A 1C #### [facility] [address] [address] [address] Ladan Diehl Glucose [Mass/Vol] 140 mg/dL Normal [facility] Comment on above: Performed By: #### A 1C #### [facility] [address] [address] [address] Ladan Diehl HbA1c (Bld) [Mass fraction] 6.5 % Critically high 4.5-6.2 [facility] Comment on above: Performed By: #### A 1C #### [facility] [address] CSPINE WO CONon 2 CT CSPINE [...] CAROL YIP Date: 2022-05-17 13:25 Normal [facility] CT HEAD WO CONon 05-17-2022 [...] by: CAROL YIP Date: 2022-05-17 13:07 Normal [facility] XR CHEST 1 Von 05-17-2022 [...] by: ABBIE AMBROCIO Date: 2022-05-17 12:53 Normal [facility] Progress Noteson 05-03-2022 [employer] Authentication Interface Message Text EMERGENCY TRIAGE, TREAT AND TRANSPORT (ET3) DOCUMENTATION OF TELEHEALTH VISIT Date / Time: 05/01/2022599 Name: Evelin Patterson : 1955 SSN: [id number] EMS Agency: [facility] [x] Verbal consent obtained [...] Completed by: Peter Molina, DO Normal [facility] Activated partial thrombopla stin time (aPTT) in platelet poor plasma by coagulation aOrdered By: Ramesh Byrd on 04-12-2022 aPTT Coag (PPP) [Time] 24.8 s 25.1-36.5 [facility] Automated erythrocytes count in urine sediment (number/area)Ordered By: Ramesh Byrd on 04-12-2022 RBC Auto (Urine sed) [#/Area] 20-49 [HPF] 0-[address] [facility] Automated leukocytes count i n urine sediment (number/area)Ordered By: Ramesh Byrd on 04-12-2022 WBC Auto (Urine sed) [#/Area] 1-2 [HPF] 0-[address] [facility] B-Type Natriuretic Peptideon 04-12-2022 Natriuretic peptide B (Bld) [Mass/Vol] 196.0 pg/mL High 5-[address] [facility] Comment on above: Result Comment: PERF ORMED BY: [facility] [address] [place] [address] PATHOLOGIST [employer]ICENSED INSURANCE AGENT CHARLENE HERNANDEZ M.D. Performed By: #### C MP, TSH3, PT, HS TROP, PTT, BNP, MG, CBC #### [facility] [address] Basophils Auto (Bld) [#/Vol] Ordered By: Ramesh Byrd on 04-12-2022 Basophils (Bld) [#/Vol] 0.0 10*3/uL 0.0-0.[address] [facility] Basophils/100 WBC Auto (Bld) Ordered By: Ramesh Byrd on 04-12-2022 Basophils/100 WBC (Bld) 0.6 % . [facility] Bilirubin Test strip Ql (U)O rdered By: Ramesh Byrd on 04-12-2022 Bilirubin Ql (U) Negative Negative [facility] Blood hemoglobin measurement (mass/volume)Ordered By: Ramesh Byrd on 04-12-2022 Hemoglobin (Bld) [Mass/Vol] 12.2 g/dL 13.0-17.[address] [facility] Blood leukocytes automated c ount (number/volume)Ordered By: Ramesh Byrd on 04-12-2022 WBC (Bld) [#/Vol] 6.4 10*3/uL 4.5-11.0 [facility] Body fluid albumin measureme nt (mass/volume)Ordered By: Ramesh Byrd on 04-12-2022 Albumin (Body fld) [Mass/Vol] 2.3 g/dL 3.2-5.[address] [facility] Color Auto (U)Ordered By: Andi Byrd on 04-12-2022 Color (U) Yellow Yellow [facility] Complete Blood Count Auto Di ffon 04-12-2022 Basophils (Bld) [#/Vol] 0.0 10*3/uL Normal 0.0-0.[address] [facility] Comment on above: Result Comment: PERF ORMED BY: [place] [address] PATHOLOGIST [employer]IC[employer]ED INSURANCE AGENT CHARLENE HERNANDEZ M.D. Performed By: #### C MP, TSH3, PT, HS TROP, PTT, BNP, MG, CBC #### [address] Basophils/100 WBC (Bld) 0.6 % Normal . [facility] Comment on above: Performed By: #### C MP, TSH3, PT, HS TROP, PTT, BNP, MG, CBC #### [address] Eosinophils (Bld) [#/Vol] 0.2 10*3/uL Normal 0.0-0.[address] [facility] Comment on above: Performed By: #### C MP, TSH3, PT, HS TROP, PTT, BNP, MG, CBC #### [address] Eosinophils/100 WBC (Bld) 2.7 % Normal . [facility] Comment on above: Performed By: #### C MP, TSH3, PT, HS TROP, PTT, BNP, MG, CBC #### [address] Erythrocyte distribution width (RBC) [Ratio] 16.7 % High 12.0-14.[address] [facility] Comment on above: Performed By: #### C MP, TSH3, PT, HS TROP, PTT, BNP, MG, CBC #### [address] Hematocrit (Bld) [Volume fraction] 36.7 % Low 38.8-50.[address] [facility] Comment on above: Performed By: #### C MP, TSH3, PT, HS TROP, PTT, BNP, MG, CBC #### [place] [address] Hemoglobin (Bld) [Mass/Vol] 12.2 g/dL Low 13.0-17.[address] [facility] Comment on above: Performed By: #### C MP, TSH3, PT, HS TROP, PTT, BNP, MG, CBC #### [address] Lymphocytes (Bld) [#/Vol] 1.0 10*3/uL Normal 1.00-4.[address] [facility] Comment on above: Performed By: #### C MP, TSH3, PT, HS TROP, PTT, BNP, MG, CBC #### [address] Lymphocytes/100 WBC (Bld) 16.1 % Normal . [facility] Comment on above: Performed By: #### C MP, TSH3, PT, HS TROP, PTT, BNP, MG, CBC #### [address] MCH (RBC) [Entitic mass] 31.0 pg Normal 27.5-35.[address] [facility] Comment on above: Performed By: #### C MP, TSH3, PT, HS TROP, PTT, BNP, MG, CBC #### [address] MCV (RBC) [Entitic vol] 93.5 fL Normal 83.5-101 [facility] Comment on above: Performed By: #### C MP, TSH3, PT, HS TROP, PTT, BNP, MG, CBC #### [address] Mean Corpuscular HGB Conc 33.1 g/dL Normal 32.5-35.[address] [facility] Comment on above: Performed By: #### C MP, TSH3, PT, HS TROP, PTT, BNP, MG, CBC #### [address] Monocytes (Bld) [#/Vol] 0.8 10*3/uL Normal 0.0-0.[address] [facility] Comment on above: Performed By: #### C MP, TSH3, PT, HS TROP, PTT, BNP, MG, CBC #### [facility] [address] [place] [address] [place] Monocytes/100 WBC (Bld) 12.0 % Normal . [facility] Comment on above: Performed By: #### C MP, TSH3, PT, HS TROP, PTT, BNP, MG, CBC #### [facility] [address] [place] [address] [place] Neutrophils (Bld) [#/Vol] 4.4 10*3/uL Normal 1.8-7.[address] [facility] Comment on above: Performed By: #### C MP, TSH3, PT, HS TROP, PTT, BNP, MG, CBC #### [facility] [address] Neutrophils/100 WBC (Bld) 68.6 % Normal . [facility] Comment on above: Performed By: #### C MP, TSH3, PT, HS TROP, PTT, BNP, MG, CBC #### [facility] [address] [place] [address] [place] Nucleated RBC/100 WBC (Bld) [Ratio] 0.1 % Normal 0-0.[address] [facility] Comment on above: Performed By: #### C MP, TSH3, PT, HS TROP, PTT, BNP, MG, CBC #### [facility] [address] Platelet mean volume (Bld) [Entitic vol] 8.0 fL Normal 6.6-10.[address] [facility] Comment on above: Performed By: #### C MP, TSH3, PT, HS TROP, PTT, BNP, MG, CBC #### [facility] [address] [place] [address] [place] Platelets (Bld) [#/Vol] 191 10*3/uL Normal 150-[address] [facility] Comment on above: Performed By: #### C MP, TSH3, PT, HS TROP, PTT, BNP, MG, CBC #### [facility] [address] [place] [address] [place] RBC (Bld) [#/Vol] 3.93 10*6/uL Normal 3.90-5.60 [facility] Comment on above: Performed By: #### C MP, TSH3, PT, HS TROP, PTT, BNP, MG, CBC #### [facility] [address] WBC (Bld) [#/Vol] 6.4 10*3/uL Normal 4.5-11.0 [facility] Comment on above: Performed By: #### C MP, TSH3, PT, HS TROP, PTT, BNP, MG, CBC #### [facility] [address] Comprehensive Metabolic Pane xavier 04-12-2022 Albumin [Mass/Vol] 2.3 g/dL Low 3.2-5.5 [facility] Comment on above: Performed By: #### C MP, TSH3, PT, HS TROP, PTT, BNP, MG, CBC #### [address] Albumin/Globulin [Mass ratio] 0.5 {ratio} Normal [facility] Comment on above: Performed By: #### C MP, TSH3, PT, HS TROP, PTT, BNP, MG, CBC #### [address] ALP [Catalytic activity/Vol] 97 U/L High 32-[address] [facility] Comment on above: Performed By: #### C MP, TSH3, PT, HS TROP, PTT, BNP, MG, CBC #### [address] ALT [Catalytic activity/Vol] 34 U/L Normal 10-[address] [facility] Comment on above: Performed By: #### C MP, TSH3, PT, HS TROP, PTT, BNP, MG, CBC #### [address] Anion gap [Moles/Vol] 17.1 mmol/L High 6.0-15.0 [facility] Comment on above: Performed By: #### C MP, TSH3, PT, HS TROP, PTT, BNP, MG, CBC #### [facility] [address] AST [Catalytic activity/Vol] 136 U/L High 10-[address] [facility] Comment on above: Performed By: #### C MP, TSH3, PT, HS TROP, PTT, BNP, MG, CBC #### [address] Bilirubin [Mass/Vol] 1.3 mg/dL High 0.3-1.2 [facility] Comment on above: Result Comment: Samp les from patients who have taken Naproxen have shown spurious elevation in Total Bilirubin levels. A metabolite of Naproxen, O-desmethylnaproxen, has been shown to interfere with the Jendrassik-Grof method for measuring Total Bilirubin. Performed By: #### C MP, TSH3, PT, HS TROP, PTT, BNP, MG, CBC #### [address] Calcium [Mass/Vol] 8.6 mg/dL Normal 8.2-10.2 [facility] Comment on above: Performed By: #### C MP, TSH3, PT, HS TROP, PTT, BNP, MG, CBC #### [address] Chloride [Moles/Vol] 97 mmol/L Normal 95-114 [facility] Comment on above: Performed By: #### C MP, TSH3, PT, HS TROP, PTT, BNP, MG, CBC #### [facility] [address] CO2 [Moles/Vol] 25.4 mmol/L Normal 22.0-30.0 [facility] Comment on above: Performed By: #### C MP, TSH3, PT, HS TROP, PTT, BNP, MG, CBC #### [address] Creatinine [Mass/Vol] 1.14 mg/dL Normal 0.64-1.27 [facility] Comment on above: Performed By: #### C MP, TSH3, PT, HS TROP, PTT, BNP, MG, CBC #### [facility] [address] Creatinine Clr Calc Pharmacy 97.67 [facility] Comment on above: Performed By: #### C MP, TSH3, PT, HS TROP, PTT, BNP, MG, CBC #### [facility] [address] Estimated GFR ( Lilibeth > 60 [facility] Comment on above: Result Comment: GFR estimated reference range: According to KDOQI guidelines, <60 ml/min/1.73m2 is sufficient to diagnose a patient with chronic kidney disease. Performed By: #### C MP, TSH3, PT, HS TROP, PTT, BNP, MG, CBC #### [facility] [address] Estimated GFR (Non- Am > 60 [facility] Comment on above: Performed By: #### C MP, TSH3, PT, HS TROP, PTT, BNP, MG, CBC #### [facility] [address] Globulin (S) [Mass/Vol] 4.7 g/dL Normal [facility] Comment on above: Performed By: #### C MP, TSH3, PT, HS TROP, PTT, BNP, MG, CBC #### [facility] [address] Glucose [Mass/Vol] 164 mg/dL High 70-100 [facility] Comment on above: Result Comment: [place] Glucose Reference Range is dependent on time and content of last meal. Glucose of more than 200 mg/dL in a nonstressed, ambulatory subject supports the diagnosis of Diabetes Mellitus. ADA recommended reference range Performed By: #### C MP, TSH3, PT, HS TROP, PTT, BNP, MG, CBC #### [facility] [address] Potassium [Moles/Vol] 3.5 mmol/L Normal 3.5-5.1 [facility] Comment on above: Performed By: #### C MP, TSH3, PT, HS TROP, PTT, BNP, MG, CBC #### [address] Protein [Mass/Vol] 7.0 g/dL Normal 6.1-7.9 [facility] Comment on above: Performed By: #### C MP, TSH3, PT, HS TROP, PTT, BNP, MG, CBC #### [facility] [address] Sodium [Moles/Vol] 136 mmol/L Normal 136-146 [facility] Comment on above: Performed By: #### C MP, TSH3, PT, HS TROP, PTT, BNP, MG, CBC #### [address] Urea nitrogen [Mass/Vol] 13 mg/dL Normal 9-[address] [facility] Comment on above: Performed By: #### C MP, TSH3, PT, HS TROP, PTT, BNP, MG, CBC #### [address] Creatinine and Glomerular fi ltration rate.predicted panel (S/P/Bld)Ordered By: Ramesh Byrd on 04-12-2022 Creatinine [Mass/Vol] 1.14 mg/dL 0.64-1.27 [facility] Dipstick and Microscopicon 0 04-12-2022 Appearance (U) Clear Normal Clear [facility] Comment on above: Order Comment: Name Collection Type:: Clean-Voided Midstream Performed By: #### A DDONUAPLUS #### [address] Bacteria,Urine None Seen Normal None Seen [facility] Comment on above: Order Comment: Name Collection Type:: Clean-Voided Midstream Performed By: #### A DDONUAPLUS #### [address] Bilirubin,Urine Negative Normal Negative [facility] Comment on above: Order Comment: Name Collection Type:: Clean-Voided Midstream Performed By: #### A DDONUAPLUS #### [address] [place] [address] [place] Color (U) Yellow Normal Yellow [facility] Comment on above: Order Comment: Name Collection Type:: Clean-Voided Midstream Performed By: #### A DDONUAPLUS #### [facility] [address] [place] [id number] [place] Glucose Ql (U) Normal Normal Normal [facility] Comment on above: Order Comment: Name Collection Type:: Clean-Voided Midstream Performed By: #### A DDONUAPLUS #### [facility] [address] [place] [address] [place] Hyaline Casts,Urine 0-8 Normal 0-8 [facility] Comment on above: Order Comment: Name Collection Type:: Clean-Voided Midstream Result Comment: PERF ORMED BY: [place] [address] PATHOLOGIST [employer]ED [employer]URANCE AGENT CHARLENE HERNANDEZ M.D. Performed By: #### A DDONUAPLUS #### [facility] [address] [place] [address] [place] Ketones Ql (U) Trace High Negative [facility] Comment on above: Order Comment: Name Collection Type:: Clean-Voided Midstream Performed By: #### A DDONUAPLUS #### [place] [address] [place] Leukocyte esterase Test strip Ql (U) Negative Normal Negative [facility] Comment on above: Order Comment: Name Collection Type:: Clean-Voided Midstream Performed By: #### A DDONUAPLUS #### [facility] [address] [place] [address] [place] Nitrite,Urine Negative Normal Negative [facility] Comment on above: Order Comment: Name Collection Type:: Clean-Voided Midstream Performed By: #### A DDONUAPLUS #### [facility] [address] [place] [address] [place] Occult Blood,Urine 2+ High Negative [facility] Comment on above: Order Comment: Name Collection Type:: Clean-Voided Midstream Result Comment: PERF ORMED BY: [address] [place] [address] PATHOLOGIST [employer]ED INSURANCE AGENT CHARLENE HERNANDEZ M.D. Performed By: #### A DDONUAPLUS #### [address] pH (U) 6.5 [pH] Normal 5.0-9.[address] [facility] Comment on above: Order Comment: Name Collection Type:: Clean-Voided Midstream Performed By: #### A DDONUAPLUS #### [address] Protein (U) [Mass/Vol] 100 mg/dL High Negative [facility] Comment on above: Order Comment: Name Collection Type:: Clean-Voided Midstream Performed By: #### A DDONUAPLUS #### [address] RBC,Urine 20-49 High 0-[address] [facility] Comment on above: Order Comment: Name Collection Type:: Clean-Voided Midstream Performed By: #### A DDONUAPLUS #### [address] Specificy [place],Urine 1.020 Normal 1.001-1.[address] [facility] Comment on above: Order Comment: Name Collection Type:: Clean-Voided Midstream Performed By: #### A DDONUAPLUS #### [address] Squamous Epithelial Cell,Urine 0-1 Normal 0-[address] [facility] Comment on above: Order Comment: Name Collection Type:: Clean-Voided Midstream Performed By: #### A DDONUAPLUS #### [place] [address] [place] Urobilinogen,Urine Normal Normal Normal [facility] Comment on above: Order Comment: Name Collection Type:: Clean-Voided Midstream Performed By: #### A DDONUAPLUS #### [place] [address] [place] WBC,Urine 1-2 Normal 0-[address] [facility] Comment on above: Order Comment: Name Collection Type:: Clean-Voided Midstream Performed By: #### A DDONUAPLUS #### [address] ECG 12 lead ECGon 04-12-2022 ECG 12 lead ECG [facility] Main [place] [address] [place] [address] Electrocardiograph Report Signed Patient: Evelin Patterson MR#: [id number] 005 : 1955 Acct:[id number] Age/Sex: 66 / M ADM Date: 04/12/22 Loc: ER Room: Type: [facility] ER Attending Dr: Ordering Provider: Ramesh [...] Prolonged QT Confirmed by Ramesh BYRD DO ([id number]) on 04/12/2022 4:38:01 PM Referred By: Electronically Signed By:Ramesh BYRD DO Transcribed By: MUS Signed By Ramesh Byrd DO 0 04/12/[address] [facility] Eosinophils Auto (Bld) [#/Vo l]Ordered By: Ramesh Byrd on 04-12-2022 Eosinophils (Bld) [#/Vol] 0.2 10*3/uL 0.0-0.[address] [facility] Eosinophils/100 WBC Auto (Bl d)Ordered By: Ramesh Byrd on 04-12-2022 Eosinophils/100 WBC (Bld) 2.7 % . [facility] Erythrocyte distribution wid th Auto (RBC) [Ratio]Ordered By: Ramesh Byrd on 04-12-2022 Erythrocyte distribution width (RBC) [Ratio] 16.7 % 12.0-14.[address] [facility] Estimated glomerular filtrat ion rate (GFR) non- AmericanOrdered By: Ramesh Byrd on 04-12-2022 GFR/1.73 sq M.predicted among non-blacks MDRD (S/P/Bld) [Vol rate/Area] > 60 mL/Min [facility] Globulin Calc (S) [Mass/Vol] Ordered By: Ramesh Byrd on 04-12-2022 Globulin (S) [Mass/Vol] 4.7 g/dL F [facility] Glucose Glucometer (BldC) [M ass/Vol]Ordered By: Ramesh Byrd on 04-12-2022 Glucose [Mass/Vol] 168 mg/dL [facility] Comment on above: Random Glucose Refer ence Range is dependent on time and content of last meal. Glucose of more than 200 mg/dL in a nonstressed, ambulatory subject supports the diagnosis of Diabetes Mellitus. Glucose Poct Glucometerson 0 04-12-2022 Glucose [Mass/Vol] 168 mg/dL Normal [facility] Comment on above: Result Comment: [place] om Glucose Reference Range is dependent on time and content of last meal. Glucose of more than 200 mg/dL in a nonstressed, ambulatory subject supports the diagnosis of Diabetes Mellitus. PERFORMED BY: [facility] [address] [place] [address] PATHOLOGIST [employer]ED INSURANCE AGENT CHARLENE HERNANDEZ M.D. Performed By: #### G CARMEN #### Point of Care testing , Hematocrit Auto (Bld) [Volum e fraction]Ordered By: Ramesh Byrd on 04-12-2022 Hematocrit (Bld) [Volume fraction] 36.7 % 38.8-50.[address] [facility] Ketones Auto test strip (U) [Mass/Vol]Ordered By: Ramesh Byrd on 04-12-2022 Ketones (U) [Mass/Vol] Trace Negative [facility] - Chemistry and C hemistry - challengeOrdered By: Ramesh Byrd on 04-12-2022 Magnesium [Mass/Vol] 1.3 mg/dL 1.6-2.6 [facility] Natriuretic peptide B (Bld) [Mass/Vol] 196.0 pg/mL 5-[address] [facility] Laboratory - CoagulationOrde red By: Ramesh Byrd on 04-12-2022 PT Coag (PPP) [Time] 12.5 s 9.0-12.9 [facility] Laboratory - Hematology and Cell countsOrdered By: Ramesh Byrd on 04-12-2022 Nucleated RBC/100 WBC (Bld) [Ratio] 0.1 % 0-0.[address] [facility] Laboratory - UrinalysisOrder ed By: Ramesh Byrd on 04-12-2022 Hyaline casts LM Ql (Urine sed) 0-8 [LPF] 0-[address] [facility] Lymphocytes Auto (Bld) [#/Vo l]Ordered By: Ramesh Byrd on 04-12-2022 Lymphocytes (Bld) [#/Vol] 1.0 10*3/uL 1.00-4.[address] [facility] Lymphocytes/100 WBC Auto (Bl d)Ordered By: Ramesh Byrd on 04-12-2022 Lymphocytes/100 WBC (Bld) 16.1 % . [facility] MCH Auto (RBC) [Entitic mass ]Ordered By: Ramesh Byrd on 04-12-2022 MCH (RBC) [Entitic mass] 31.0 pg 27.5-35.[address] [facility] MCHC Auto (RBC) [Mass/Vol]Or dered By: Ramesh Byrd on 04-12-2022 MCHC (RBC) [Mass/Vol] 33.1 g/dL 32.5-35.6 Fir [facility] MCV Auto (RBC) [Entitic vol] Ordered By: Ramesh Byrd on 04-12-2022 MCV (RBC) [Entitic vol] 93.5 fL 83.5-101 F [facility] Magnesiumon 04-12-2022 Magnesium [Mass/Vol] 1.3 mg/dL Low 1.6-2.6 [facility] Comment on above: Performed By: #### G LULS #### Point of Care testing , Monocytes Auto (Bld) [#/Vol] Ordered By: Ramesh Byrd on 04-12-2022 Monocytes (Bld) [#/Vol] 0.8 10*3/uL 0.0-0.[address] [facility] Monocytes/100 WBC Auto (Bld) Ordered By: Ramesh Byrd on 04-12-2022 Monocytes/100 WBC (Bld) 12.0 % . F [facility] Neutrophils Auto (Bld) [#/Vo l]Ordered By: Ramesh Byrd on 04-12-2022 Neutrophils (Bld) [#/Vol] 4.4 10*3/uL 1.8-7.[address] [facility] Neutrophils/100 WBC Auto (Bl d)Ordered By: Ramesh Byrd on 04-12-2022 Neutrophils/100 WBC (Bld) 68.6 % . [facility] Nitrite Test strip Ql (U)Ord ered By: Ramesh Byrd on 04-12-2022 Nitrite Ql (U) Negative Negative [facility] No Panel InformationOrdered By: Ramesh Byrd on 04-12-2022 Estimated GFR () > 60 mL/Min [facility] Comment on above: GFR estimated refere nce range: According to KDOQI guidelines, <60 ml/min/1.73m2 is sufficient to diagnose a patient with chronic kidney disease. Pharmacy Creatinine Clearance (Chem 97.[address] [facility] Partial Thromboplastin Timeo n 04-12-2022 aPTT Coag (Bld) [Time] 24.8 s Low 25.1-36.5 [facility] Comment on above: Result Comment: PERF ORMED BY: [place] [address] PATHOLOGIST [employer]URANCE AGENT CHARLENE HERNANDEZ M.D. Performed By: #### C MP, TSH3, PT, HS TROP, PTT, BNP, MG, CBC #### [facility] [address] Platelet mean volume Auto (B ld) [Entitic vol]Ordered By: Ramesh Byrd on 04-12-2022 Platelet mean volume (Bld) [Entitic vol] 8.0 fL 6.6-10.[address] [facility] Platelet poor plasma interna tional normalized ratio (INR) by coagulation assay (relatOrdered By: Ramesh Byrd on 04-12-2022 INR Coag (PPP) [Relative time] 1.1 {INR} [facility] Comment on above: INR Therapeutic Rang e [...] [#/Vol] 191 10*3/uL 150-[address] [facility] Protein Auto test strip (U) [Mass/Vol]Ordered By: Ramesh Byrd on 04-12-2022 Protein (U) [Mass/Vol] 100 mg/dL Negative [facility] Protein [Mass/volume] in Ser um or PlasmaOrdered By: Ramesh Byrd on 04-12-2022 Protein [Mass/Vol] 7.0 g/dL 6.1-7.9 [facility] Prothrombin Time INRon 04-12 INR Coag (PPP) [Relative time] 1.1 {INR} Normal [facility] Comment on above: Result Comment: INR Therapeutic [...] HS TROP, PTT, BNP, MG, CBC #### [facility] [address] PT Coag (PPP) [Time] 12.5 s Normal 9.0-12.9 [facility] Comment on above: Performed By: #### C MP, TSH3, PT, HS TROP, PTT, BNP, MG, CBC #### [facility] [address] RBC Auto (Bld) [#/Vol]Ordere d By: Ramesh Byrd on 04-12-2022 RBC (Bld) [#/Vol] 3.93 10*6/uL 3.90-5.60 [facility] Serum or plasma alanine vivas otransferase measurement without P-5'-P (enzymatic activiOrdered By: Ramesh Byrd on 04-12-2022 ALT No additional P-5'-P [Catalytic activity/Vol] 34 U/L 10-60 [facility] Serum or plasma albumin/glob ulin mass ratioOrdered By: Ramesh Byrd on 04-12-2022 Albumin/Globulin [Mass ratio] 0.5 {ratio} [facility] Serum or plasma alkaline dilan sphatase measurement (enzymatic activity/volume)Ordered By: Ramesh Byrd on 04-12-2022 ALP [Catalytic activity/Vol] 97 U/L 32-[address] [facility] Serum or plasma anion gap de terminationOrdered By: Ramesh Byrd on 04-12-2022 Anion gap [Moles/Vol] 17.1 mmol/L 6.0-15.0 [facility] Serum or plasma aspartate am inotransferase measurement (enzymatic activity/volume)Ordered By: Ramesh Byrd on 04-12-2022 AST [Catalytic activity/Vol] 136 U/L 10-[address] [facility] Serum or plasma calcium osbaldo urement (mass/volume)Ordered By: Ramesh Byrd on 04-12-2022 Calcium [Mass/Vol] 8.6 mg/dL 8.2-10.2 [facility] Serum or plasma chloride judith surement (moles/volume)Ordered By: Rmaesh Byrd on 04-12-2022 Chloride [Moles/Vol] 97 mmol/L 95-114 [facility] Serum or plasma glucose osbaldo urement (mass/volume)Ordered By: Ramesh Byrd on 04-12-2022 Glucose [Mass/Vol] 164 mg/dL 70-100 [facility] Comment on above: ADA recommended refe rence range Random Glucose Reference Range is dependent on time and content of last meal. Glucose of more than 200 mg/dL in a nonstressed, ambulatory subject supports the diagnosis of Diabetes Mellitus. Serum or plasma potassium me asurement (moles/volume)Ordered By: Ramesh Byrd on 04-12-2022 Potassium [Moles/Vol] 3.5 mmol/L 3.5-5.1 [facility] Serum or plasma sodium measu rement (moles/volume)Ordered By: Ramesh Byrd on 04-12-2022 Sodium [Moles/Vol] 136 mmol/L 136-146 [facility] Serum or plasma total biliru bin measurement (mass/volume)Ordered By: Ramesh Byrd on 04-12-2022 Bilirubin [Mass/Vol] 1.3 mg/dL 0.3-1.2 [facility] Comment on above: Samples from patient s who have taken Naproxen have shown spurious elevation in Total Bilirubin levels. A metabolite of Naproxen, O-desmethylnaproxen, has been shown to interfere with the Ronny-Chirag method for measuring Total Bilirubin. Serum or plasma total carbon dioxide measurement (moles/volume)Ordered By: Ramesh Byrd on 04-12-2022 CO2 [Moles/Vol] 25.4 mmol/L 22.0-30.0 [facility] Serum or plasma urea nitroge n measurement (mass/volume)Ordered By: Ramesh Byrd on 04-12-2022 Urea nitrogen [Mass/Vol] 13 mg/dL 9-[address] [facility] Specific gravity Auto test s trip (U) [Rel density]Ordered By: Ramesh Byrd on 04-12-2022 Specific gravity (U) [Rel density] 1.020 1.001-1.[address] [facility] Squamous epithelial cells de tection in urine sediment by light microscopyOrdered By: Ramesh Byrd on 04-12-2022 Epithelial cells.squamous LM Ql (Urine sed) 0-1 [HPF] 0-[address] [facility] TSH DL <= 0.005 mIU/L QnOrde red By: Ramesh Byrd on 04-12-2022 TSH Qn 13.14 m[IU]/L 0.45-5.[address] [facility] Thyroid Stimulating Hormoneo n 04-12-2022 TSH Qn 13.14 m[IU]/L High 0.45-5.[address] [facility] Comment on above: Result Comment: PERF ORMED BY: [facility] [address] [place] [address] PATHOLOGIST [employer] INSURANCE AGENT CHARLENE HERNANDEZ M.D. Performed By: #### G LULS #### Point of Care testing , Troponin I High Sensitivityo n 04-12-2022 Troponin I High Sensitivity 18 pg/mL Normal 0-[address] [facility] Comment on above: Result Comment: PERF ORMED BY: [place] [address] PATHOLOGIST L[employer]ED INSURANCE AGENT CHARLENE HERNANDEZ M.D. Performed By: #### C MP, TSH3, PT, HS TROP, PTT, BNP, MG, CBC #### [facility] [address] Troponin I.cardiac [Mass/vol ume] in Serum or Plasma by High sensitivity methodOrdered By: Ramesh Byrd on 04-12-2022 Troponin I.cardiac High sensitivity method [Mass/Vol] 18 pg/mL 0-[address] [facility] Urine bacteria detection by automated methodOrdered By: Ramesh Byrd on 04-12-2022 Bacteria Auto Ql (U) None seen None Seen [facility] Urine clarity by refractomet ry automatedOrdered By: Ramesh Byrd on 04-12-2022 Clarity Refractometry automated (U) Clear Clear [facility] Urine glucose measurement by automated test strip (mass/volume)Ordered By: Ramesh Byrd on 04-12-2022 Glucose Auto test strip (U) [Mass/Vol] Normal mg/dL Normal [facility] Urine hemoglobin detection b y automated test stripOrdered By: Ramesh Byrd on 04-12-2022 Hemoglobin Auto test strip Ql (U) 2+ Negative [facility] Urine leukocyte esterase det ection by automated test stripOrdered By: Ramesh yBrd on 04-12-2022 Leukocyte esterase Auto test strip Ql (U) Negative Negative [facility] Urobilinogen Auto test strip (U) [Mass/Vol]Ordered By: Ramesh Byrd on 04-12-2022 Urobilinogen (U) [Mass/Vol] Normal mg/dL Normal [facility] XR chest 2V*on 04-12-2022 XR chest 2V* [facility] [place] [address] [place] [address] XRay Report Signed Patient: Evelin Patterson MR#: [id number] 005 : 1955 Acct:[id number] Age/Sex: 66 / M ADM Date: 04/12/22 Loc: ER Room: Type: [facility] ER Attending Dr: Copies to: Ramesh Byrd [...] Jessica Cazares M.D.04/12/2022 11:53 AM Dictation Location: [place] [address] Transcribed By: [facility] 04/12/22 1153 Dictated By: Jessica Cazares MD 04/12/22 1151 Signed By: 04/12/22 [address] [facility] pH Auto test strip (U)Ordere d By: Ramesh Byrd on 04-12-2022 pH (U) 6.5 [pH] 5.0-9.[address] [facility] Albumin [Mass/volume] in Ser um or PlasmaOrdered By: Lupe Hernandez on 04-09-2022 Albumin [Mass/Vol] 1.9 g/dL 3.2-5.5 [facility] Basophils Auto (Bld) [#/Vol] Ordered By: Lupe Hernandez on 04-09-2022 Basophils (Bld) [#/Vol] 0.1 10*3/uL 0.0-0.[address] [facility] Basophils/100 WBC Auto (Bld) Ordered By: Lupe Hernandez on 04-09-2022 Basophils/100 WBC (Bld) 1.3 % . [facility] Blood hemoglobin measurement (mass/volume)Ordered By: Lupe Hernandez on 04-09-2022 Hemoglobin (Bld) [Mass/Vol] 11.2 g/dL 13.0-17.[address] [facility] Blood leukocytes automated c ount (number/volume)Ordered By: Lupe Hernandez on 04-09-2022 WBC (Bld) [#/Vol] 5.4 10*3/uL 4.5-11.0 [facility] Creatinine and Glomerular fi ltration rate.predicted panel (S/P/Bld)Ordered By: Lupe Hernandez on 04-09-2022 Creatinine [Mass/Vol] 0.88 mg/dL 0.64-1.27 [facility] Eosinophils Auto (Bld) [#/Vo l]Ordered By: Lupe Hernandez on 04-09-2022 Eosinophils (Bld) [#/Vol] 0.3 10*3/uL 0.0-0.[address] [facility] Eosinophils/100 WBC Auto (Bl d)Ordered By: Lupe Hernandez on 04-09-2022 Eosinophils/100 WBC (Bld) 5.6 % . [facility] Erythrocyte distribution wid th Auto (RBC) [Ratio]Ordered By: Lupe Hernandez on 04-09-2022 Erythrocyte distribution width (RBC) [Ratio] 16.5 % 12.0-14.[address] [facility] Estimated glomerular filtrat ion rate (GFR) non- AmericanOrdered By: Lupe Hernandez on 04-09-2022 GFR/1.73 sq M.predicted among non-blacks MDRD (S/P/Bld) [Vol rate/Area] > 60 mL/Min [facility] Globulin Calc (S) [Mass/Vol] Ordered By: Lupe Hernandez on 04-09-2022 Globulin (S) [Mass/Vol] 4.2 g/dL [facility] Glucose Glucometer (BldC) [M ass/Vol]Ordered By: Lupe Hernandez on 04-09-2022 Glucose [Mass/Vol] 178 mg/dL [facility] Comment on above: Random Glucose Refer ence Range is dependent on time and content of last meal. Glucose of more than 200 mg/dL in a nonstressed, ambulatory subject supports the diagnosis of Diabetes Mellitus. Hematocrit Auto (Bld) [Volum e fraction]Ordered By: Lupe Hernandez on 04-09-2022 Hematocrit (Bld) [Volume fraction] 33.6 % 38.8-50.[address] [facility] Laboratory - Hematology and Cell countsOrdered By: Lupe Hernandez on 04-09-2022 Nucleated RBC/100 WBC (Bld) [Ratio] 0.2 % 0-0.[address] [facility] Lymphocytes Auto (Bld) [#/Vo l]Ordered By: Lupe Hernandez on 04-09-2022 Lymphocytes (Bld) [#/Vol] 1.0 10*3/uL 1.00-4.[address] [facility] Lymphocytes/100 WBC Auto (Bl d)Ordered By: Lupe Hernandez on 04-09-2022 Lymphocytes/100 WBC (Bld) 18.3 % . [facility] MCH Auto (RBC) [Entitic mass ]Ordered By: Lupe Hernandez on 04-09-2022 MCH (RBC) [Entitic mass] 31.1 pg 27.5-35.[address] [facility] MCHC Auto (RBC) [Mass/Vol]Or dered By: Lupe Hernandez on 04-09-2022 MCHC (RBC) [Mass/Vol] 33.5 g/dL 32.5-35.6 Fir [facility] MCV Auto (RBC) [Entitic vol] Ordered By: Lupe Hernandez on 04-09-2022 MCV (RBC) [Entitic vol] 93.0 fL 83.5-101 [facility] Monocytes Auto (Bld) [#/Vol] Ordered By: Lupe Hernandez on 04-09-2022 Monocytes (Bld) [#/Vol] 0.6 10*3/uL 0.0-0.[address] [facility] Monocytes/100 WBC Auto (Bld) Ordered By: Lupe Hernandez on 04-09-2022 Monocytes/100 WBC (Bld) 11.0 % . [facility] Neutrophils Auto (Bld) [#/Vo l]Ordered By: Lupe Hernandez on 04-09-2022 Neutrophils (Bld) [#/Vol] 3.4 10*3/uL 1.8-7.[address] [facility] Neutrophils/100 WBC Auto (Bl d)Ordered By: Lupe Hernandez on 04-09-2022 Neutrophils/100 WBC (Bld) 63.8 % . [facility] No Panel InformationOrdered By: Lupe Hernandez on 04-09-2022 Bedside Glucose Comment Glu2: cleaned meter [facility] Estimated GFR () > 60 mL/Min [facility] Comment on above: GFR estimated refere nce range: According to KDOQI guidelines, <60 ml/min/1.73m2 is sufficient to diagnose a patient with chronic kidney disease. Pharmacy Creatinine Clearance (Chem 130.[address] [facility] Platelet mean volume Auto (B ld) [Entitic vol]Ordered By: Lupe Hernandez on 04-09-2022 Platelet mean volume (Bld) [Entitic vol] 7.6 fL 6.6-10.[address] [facility] Platelets Auto (Bld) [#/Vol] Ordered By: Lupe Hernandez on 04-09-2022 Platelets (Bld) [#/Vol] 214 10*3/uL 150-[address] [facility] Protein [Mass/volume] in Ser um or PlasmaOrdered By: Lupe Hernandez on 04-09-2022 Protein [Mass/Vol] 6.1 g/dL 6.1-7.9 [facility] RBC Auto (Bld) [#/Vol]Ordere d By: Lupe Hernandez on 04-09-2022 RBC (Bld) [#/Vol] 3.61 10*6/uL 3.90-5.60 [facility] Serum or plasma alanine vivas otransferase measurement without P-5'-P (enzymatic activiOrdered By: Lupe Hernandez on 04-09-2022 ALT No additional P-5'-P [Catalytic activity/Vol] 21 U/L 10-60 [facility] Serum or plasma albumin/glob ulin mass ratioOrdered By: Lupe Hernandez on 04-09-2022 Albumin/Globulin [Mass ratio] 0.5 {ratio} [facility] Serum or plasma alkaline dilan sphatase measurement (enzymatic activity/volume)Ordered By: Lupe Hernandez on 04-09-2022 ALP [Catalytic activity/Vol] 89 U/L 32-[address] [facility] Serum or plasma anion gap de terminationOrdered By: Lupe Hernandez on 04-09-2022 Anion gap [Moles/Vol] 8.4 mmol/L 6.0-15.0 [facility] Serum or plasma aspartate am inotransferase measurement (enzymatic activity/volume)Ordered By: Lupe Hernandez on 04-09-2022 AST [Catalytic activity/Vol] 27 U/L 10-[address] [facility] Serum or plasma calcium osbaldo urement (mass/volume)Ordered By: Lupe Hernandez on 04-09-2022 Calcium [Mass/Vol] 8.2 mg/dL 8.2-10.2 [facility] Serum or plasma chloride judith surement (moles/volume)Ordered By: Lupe Hernandez on 04-09-2022 Chloride [Moles/Vol] 98 mmol/L 95-114 [facility] Serum or plasma glucose osbaldo urement (mass/volume)Ordered By: Lupe Hernandez on 04-09-2022 Glucose [Mass/Vol] 150 mg/dL 70-100 [facility] Comment on above: ADA recommended refe rence range Random Glucose Reference Range is dependent on time and content of last meal. Glucose of more than 200 mg/dL in a nonstressed, ambulatory subject supports the diagnosis of Diabetes Mellitus. Serum or plasma potassium me asurement (moles/volume)Ordered By: Lupe Hernandez on 04-09-2022 Potassium [Moles/Vol] 3.4 mmol/L 3.5-5.1 [facility] Serum or plasma sodium measu rement (moles/volume)Ordered By: Lupe Hernandez on 04-09-2022 Sodium [Moles/Vol] 134 mmol/L 136-146 [facility] Serum or plasma total biliru bin measurement (mass/volume)Ordered By: Lupe Hernandez on 04-09-2022 Bilirubin [Mass/Vol] 0.7 mg/dL 0.3-1.2 [facility] Serum or plasma total carbon dioxide measurement (moles/volume)Ordered By: Lupe Hernandez on 04-09-2022 CO2 [Moles/Vol] 31.0 mmol/L 22.0-30.0 [facility] Serum or plasma urea nitroge n measurement (mass/volume)Ordered By: Lupe Hernandez on 04-09-2022 Urea nitrogen [Mass/Vol] 9 mg/dL 05-[address] [facility] Bacterial blood cultureOrder ed By: Luke Moran on 04-07-2022 Bacteria identified Cx Nom (Bld) NO GROWTH [address] [facility] Laboratory - Chemistry and C hemistry - challengeOrdered By: Luke Moran on 04-04-2022 CO2 [Moles/Vol] 29.4 mmol/L 23.0-27.0 [facility] HCO3 (Bld) [Moles/Vol] 28.1 mmol/L 23.0-29.0 [facility] No Panel InformationOrdered By: Luke Moran on 04-04-2022 Arterial Blood Base Excess 3.4 mmol/L -3.0-3.[address] [facility] Arterial Blood Oxygen Content 6.4 mmol/L 6.6-9.[address] [facility] Arterial Blood Oxygen Saturation 92.1 % 95.0-100.[address] [facility] Arterial Blood Partial Pressure CO2 43.2 mm[Hg] 35.0-45.[address] [facility] Arterial Blood Partial Pressure O2 61.4 mm[Hg] 80.0-100.[address] [facility] Arterial Blood pH 7.43 7.35-7.45 [facility] Blood Gas Critical Value See comment [facility] Comment on above: Critical Value kaufman d on: 04/04/2022 at 09:33 Blood Gas Liter Flow 2 L/min [facility] Blood Gas Sample Site Left radial [facility] FiO2 28 % [facility] Oxygen Delivery Device Nasal cannula [facility] Automated erythrocytes count in urine sediment (number/area)Ordered By: Jair Gabriel on 04-03-2022 RBC Auto (Urine sed) [#/Area] 3-4 [HPF] 0-[address] [facility] Automated leukocytes count i n urine sediment (number/area)Ordered By: Jair Gabriel on 04-03-2022 WBC Auto (Urine sed) [#/Area] None seen [HPF] 0-[address] [facility] Bilirubin Test strip Ql (U)O rdered By: Jair Nery on 04-03-2022 Bilirubin Ql (U) Negative Negative [facility] Color Auto (U)Ordered By: Tam avery Nery on 04-03-2022 Color (U) Yellow Yellow [facility] Hepatitis B virus surface Ag [Presence] in Serum or Plasma by ImmunoassayOrdered By: Luke Moran on 04-03-2022 HBV surface Ag IA Ql Negative Negative [facility] Comment on above: Performed at: [employer] [place] [id number] [employer] Control Technician: Genaro Becerril PhD, Phone: [phone] IgA [Mass/volume] in Serum o r PlasmaOrdered By: Luke Moran on 04-03-2022 IgA [Mass/Vol] 697 mg/dL 61-[address] [facility] IgG [Mass/volume] in Serum o r PlasmaOrdered By: Luke Moran on 04-03-2022 IgG [Mass/Vol] 1107 mg/dL 603-[address] [facility] IgM [Mass/volume] in Serum o r PlasmaOrdered By: Luke Moran on 04-03-2022 IgM [Mass/Vol] 91 mg/dL 20-[address] [facility] Comment on above: Performed at: [employer] [address] [id number] [employer] Technician: Genaro Becerril PhD, Phone: [phone] Immunofixation for UrineOrde red By: Luke Moran on 04-03-2022 Interpretation Immunofixation (U) [Interp] See comment . [facility] Comment on above: No monoclonality det ected. Performed at: [email or web address] [address] [id number] [employer] Technician: Genaro Becerril PhD, Phone: [phone] Immunoglobulin light chains. kappa.free [Mass/volume] in SerumOrdered By: Luke Moran on 04-03-2022 Immunoglobulin light chains.kappa.free (S) [Mass/Vol] 93.9 mg/L 3.3-19.[address] [facility] Immunoglobulin light chains. kappa.free/Immunoglobulin light chains.lambda.free [MassOrdered By: Luke Moran on 04-03-2022 Immunoglobulin light chains.kappa.free/Immuno globulin light chains.lambda.free (S) [Mass ratio] 1.52 0.26-1.[address] [facility] Comment on above: Performed at: [address] [id number] [employer] Technician: Genaro Becerril PhD, Phone: [phone] Immunoglobulin light chains. lambda.free [Mass/volume] in Serum or PlasmaOrdered By: Luke Moran on 04-03-2022 Immunoglobulin light chains.lambda.free [Mass/Vol] 61.6 mg/L 5.7-26.[address] [facility] Ketones Auto test strip (U) [Mass/Vol]Ordered By: Jair Gabriel on 04-03-2022 Ketones (U) [Mass/Vol] Negative Negative [facility] Laboratory - UrinalysisOrder ed By: Jair Gabriel on 04-03-2022 Hyaline casts LM Ql (Urine sed) 0-8 [LPF] 0-[address] [facility] Nitrite Test strip Ql (U)Ord ered By: Jair Gabriel on 04-03-2022 Nitrite Ql (U) Negative Negative [facility] No Panel InformationOrdered By: Luke Moran on 04-03-2022 Hepatitis C Interpretation See comment . [facility] Comment on above: Negative Not infected with HCV, unless recent infection is suspected or other evidence exists to indicate HCV infection. Hepatitis C RNA Quantitative N/A [facility] Serum Immunofixation See comment . [facility] Comment on above: Immunofixation shows IgG monoclonal protein with lambda light chain specificity. Protein Auto test strip (U) [Mass/Vol]Ordered By: Jair Gabriel on 04-03-2022 Protein (U) [Mass/Vol] Negative Negative [facility] Random cortisol measurementO rdered By: Luke Moran on 04-03-2022 Cortisol [Mass/Vol] 5.8 ug/dL [facility] Comment on above: Reference range: AM 6 - 24 ug/dl PM <10 ug/dl Serum hepatitis B virus surf calin antibody detectionOrdered By: Luke Moran on 04-03-2022 HBV surface Ab Ql (S) Reactive . [facility] Comment on above: Non Reactive: [...] 0.1 s/co ratio 0.0-0.[address] [facility] Comment on above: --- 04/04/22735 -- - Hep C Ab previously reported as: <0.1 s/co ratio Specific gravity Auto test s trip (U) [Rel density]Ordered By: Jair Gabriel on 04-03-2022 Specific gravity (U) [Rel density] 1.035 1.001-1.[address] [facility] Squamous epithelial cells de tection in urine sediment by light microscopyOrdered By: Jair Gabriel on 04-03-2022 Epithelial cells.squamous LM Ql (Urine sed) None seen [HPF] 0-[address] [facility] TSH DL <= 0.005 mIU/L QnOrde red By: Luke Moran on 04-03-2022 TSH Qn 22.19 m[IU]/L 0.45-5.[address] [facility] Urine bacteria detection by automated methodOrdered By: Jair Gabriel on 04-03-2022 Bacteria Auto Ql (U) None seen None Seen [facility] Urine clarity by refractomet ry automatedOrdered By: Jair Gabriel on 04-03-2022 Clarity Refractometry automated (U) Clear Clear [facility] Urine glucose measurement by automated test strip (mass/volume)Ordered By: Jair Gabriel on 04-03-2022 Glucose Auto test strip (U) [Mass/Vol] 100 mg/dL Normal [facility] Urine hemoglobin detection b y automated test stripOrdered By: Jair Gabriel on 04-03-2022 Hemoglobin Auto test strip Ql (U) 3+ Negative [facility] Urine leukocyte esterase det ection by automated test stripOrdered By: Jair Gabriel on 04-03-2022 Leukocyte esterase Auto test strip Ql (U) Negative Negative [facility] Urobilinogen Auto test strip (U) [Mass/Vol]Ordered By: Jair Gabriel on 04-03-2022 Urobilinogen (U) [Mass/Vol] Normal mg/dL Normal [facility] pH Auto test strip (U)Ordere d By: Jair Gabriel on 04-03-2022 pH (U) 5.0 [pH] 5.0-9.[address] [facility] Activated partial thrombopla stin time (aPTT) in platelet poor plasma by coagulation aOrdered By: Jair Gabriel on 04-02-2022 aPTT Coag (PPP) [Time] 24.8 s 25.1-36.5 [facility] COVID-19 Positive/NegativeOr dered By: Jair Gabriel on 04-02-2022 SARS-CoV-2 (COVID-19) N gene MANJIT+probe Ql (Resp) Negative Negative [facility] Comment on above: Testing for SARS-CoV -2 by RT-PCR This test was developed and its performance characteristics determined by [employer] ([employer] and validated at the [facility]. This test has not been FDA cleared [...] Ql (Resp) Negative Negative [facility] Comment on above: This is a duplicate Cristal SARS Antigen (GONZALO) result to be used for statistical tracking purpose only. Laboratory - Chemistry and C hemistry - challengeOrdered By: Jair Gabriel on 04-02-2022 Natriuretic peptide B (Bld) [Mass/Vol] 55.0 pg/mL 5-[address] [facility] Laboratory - CoagulationOrde red By: Jair Gabriel on 04-02-2022 PT Coag (PPP) [Time] 11.9 s 9.0-12.9 [facility] No Panel InformationOrdered By: Luke Moran on 04-02-2022 D-Dimer Quantitative (PE/DVT) 2825 ng/mL 0-[address] [facility] Comment on above: The reference range for [...] Jair Gabriel on 04-02-2022 SARS Antigen (LFIA) [facility] Platelet poor plasma interna tional normalized ratio (INR) by coagulation assay (relatOrdered By: Jair Gabriel on 04-02-2022 INR Coag (PPP) [Relative time] 1.1 {INR} [facility] Comment on above: INR Therapeutic Rang e [...] [Mass/Vol] 26 pg/mL 0-[address] [facility] Albumin [Mass/volume] in Ser um or PlasmaOrdered By: Sarah Osuna on 03-16-2022 Albumin [Mass/Vol] 1.9 g/dL 3.2-5.5 [facility] Creatinine and Glomerular fi ltration rate.predicted panel (S/P/Bld)Ordered By: Sarah Osuna on 03-16-2022 Creatinine [Mass/Vol] 1.27 mg/dL 0.64-1.27 [facility] Estimated glomerular filtrat ion rate (GFR) non- AmericanOrdered By: Sarah Osuna on 03-16-2022 GFR/1.73 sq M.predicted among non-blacks MDRD (S/P/Bld) [Vol rate/Area] 57 mL/Min [facility] Glucose Glucometer (BldC) [M ass/Vol]Ordered By: Xin Phan on 03-16-2022 Glucose [Mass/Vol] 377 mg/dL [facility] Comment on above: Random Glucose Refer ence Range is dependent on time and content of last meal. Glucose of more than 200 mg/dL in a nonstressed, ambulatory subject supports the diagnosis of Diabetes Mellitus. No Panel InformationOrdered By: Sarah Osuna on 03-16-2022 Estimated GFR () > 60 mL/Min [facility] Comment on above: GFR estimated refere nce range: According to KDOQI guidelines, <60 ml/min/1.73m2 is sufficient to diagnose a patient with chronic kidney disease. Pharmacy Creatinine Clearance (Chem 90.[address] [facility] Serum or plasma calcium osbaldo urement (mass/volume)Ordered By: Sarah Osuna on 03-16-2022 Calcium [Mass/Vol] 8.4 mg/dL 8.2-10.2 [facility] Serum or plasma chloride judith surement (moles/volume)Ordered By: Sarah Osuna on 03-16-2022 Chloride [Moles/Vol] 99 mmol/L 95-114 [facility] Serum or plasma glucose osbaldo urement (mass/volume)Ordered By: Sarah Osuna on 03-16-2022 Glucose [Mass/Vol] 265 mg/dL 70-100 [facility] Comment on above: Delta: 480 on -1041 ADA recommended reference range Random Glucose Reference Range is dependent on time and content of last meal. Glucose of more than 200 mg/dL in a nonstressed, ambulatory subject supports the diagnosis of Diabetes Mellitus. Serum or plasma potassium me asurement (moles/volume)Ordered By: Xin Phan on 03-16-2022 Potassium [Moles/Vol] 4.0 mmol/L 3.5-5.1 [facility] Serum or plasma sodium measu rement (moles/volume)Ordered By: Sarah Osuna on 03-16-2022 Sodium [Moles/Vol] 132 mmol/L 136-146 [facility] Serum or plasma total carbon dioxide measurement (moles/volume)Ordered By: Sarah Osuna on 03-16-2022 CO2 [Moles/Vol] 25.4 mmol/L 22.0-30.0 [facility] Serum or plasma urea nitroge n measurement (mass/volume)Ordered By: Sarah Osuna on 03-16-2022 Urea nitrogen [Mass/Vol] 24 mg/dL 9-[address] [facility] Serum phospholipid phosphoru s measurement (mass/volume)Ordered By: Xin Phan on 03-16-2022 Phospholipid phosphorus (S) [Mass/Vol] 2.0 mg/dL 2.5-4.[address] [facility] No Panel InformationOrdered By: Xin Phan on 03-15-2022 Bedside Glucose Comment See comment [facility] Comment on above: Glu2: WILL NOTIFY DR /RN Bedside Glucose #2 Comment Cleaned meter [facility] Automated erythrocytes count in urine sediment (number/area)Ordered By: Sarah Osuna on 03-14-2022 RBC Auto (Urine sed) [#/Area] 0-1 [HPF] 0-[address] [facility] Automated leukocytes count i n urine sediment (number/area)Ordered By: Sarah Osuna on 03-14-2022 WBC Auto (Urine sed) [#/Area] 0-1 [HPF] 0-[address] [facility] Basophils Auto (Bld) [#/Vol] Ordered By: Leah Huang on 03-14-2022 Basophils (Bld) [#/Vol] 0.0 10*3/uL 0.0-0.[address] [facility] Basophils/100 WBC Auto (Bld) Ordered By: Leah Huang on 03-14-2022 Basophils/100 WBC (Bld) 0.2 % . [facility] Bilirubin Auto test strip Ql (U)Ordered By: Sarah Osuna on 03-14-2022 Bilirubin Ql (U) Negative Negative [facility] Blood hemoglobin measurement (mass/volume)Ordered By: Leah Huang on 03-14-2022 Hemoglobin (Bld) [Mass/Vol] 11.6 g/dL 13.0-17.[address] [facility] Blood leukocytes automated c ount (number/volume)Ordered By: Leah Huang on 03-14-2022 WBC (Bld) [#/Vol] 6.0 10*3/uL 4.5-11.0 [facility] Creatinine [Mass/volume] in UrineOrdered By: Sarah Osuna on 03-14-2022 Creatinine (U) [Mass/Vol] 76.9 mg/dL [facility] Comment on above: No reference range e stablished Eosinophils Auto (Bld) [#/Vo l]Ordered By: Leah Huang on 03-14-2022 Eosinophils (Bld) [#/Vol] 0.1 10*3/uL 0.0-0.[address] [facility] Eosinophils/100 WBC Auto (Bl d)Ordered By: Leah Huang on 03-14-2022 Eosinophils/100 WBC (Bld) 1.4 % . [facility] Erythrocyte distribution wid th Auto (RBC) [Ratio]Ordered By: Leah Huang on 03-14-2022 Erythrocyte distribution width (RBC) [Ratio] 15.8 % 12.0-14.[address] [facility] Globulin Calc (S) [Mass/Vol] Ordered By: Leah Huang on 03-14-2022 Globulin (S) [Mass/Vol] 3.8 g/dL [facility] Glucose mean value [Mass/vol ume] in Blood Estimated from glycated hemoglobinOrdered By: Leah Huang on 03-14-2022 Average glucose Estimated from glycated hemoglobin (Bld) [Mass/Vol] 329 mg/dL [facility] Hematocrit Auto (Bld) [Volum e fraction]Ordered By: Leah Huang on 03-14-2022 Hematocrit (Bld) [Volume fraction] 35.1 % 38.8-50.[address] [facility] Hemoglobin A1c percentageOrd ered By: Leah Huang on 03-14-2022 HbA1c (Bld) [Mass fraction] 13.1 % 4.3-5.[address] [facility] Comment on above: Increased risk for d iabetes: 5.7 - 6.4 diabetes: >6.4 glycemic control for adults with diabetes: <7.0 Ketones Auto test strip (U) [Mass/Vol]Ordered By: Sarah Osuna on 03-14-2022 Ketones (U) [Mass/Vol] Negative Negative [facility] Laboratory - Hematology and Cell countsOrdered By: Leah Huang on 03-14-2022 Nucleated RBC/100 WBC (Bld) [Ratio] 0.1 % 0-0.[address] [facility] Laboratory - UrinalysisOrder ed By: Sarah Osuna on 03-14-2022 Hyaline casts LM Ql (Urine sed) 0-8 [LPF] 0-[address] [facility] Lymphocytes Auto (Bld) [#/Vo l]Ordered By: Leah Huang on 03-14-2022 Lymphocytes (Bld) [#/Vol] 1.4 10*3/uL 1.00-4.[address] [facility] Lymphocytes/100 WBC Auto (Bl d)Ordered By: Leah Huang on 03-14-2022 Lymphocytes/100 WBC (Bld) 22.7 % . [facility] MCH Auto (RBC) [Entitic mass ]Ordered By: Leah Huang on 03-14-2022 MCH (RBC) [Entitic mass] 29.9 pg 27.5-35.[address] [facility] MCHC Auto (RBC) [Mass/Vol]Or dered By: Leah Huang on 03-14-2022 MCHC (RBC) [Mass/Vol] 33.0 g/dL 32.5-35.6 [facility] MCV Auto (RBC) [Entitic vol] Ordered By: Leah Huang on 03-14-2022 MCV (RBC) [Entitic vol] 90.4 fL 83.5-101 [facility] Monocytes Auto (Bld) [#/Vol] Ordered By: Leah Huang on 03-14-2022 Monocytes (Bld) [#/Vol] 0.5 10*3/uL 0.0-0.[address] [facility] Monocytes/100 WBC Auto (Bld) Ordered By: Leah Huang on 03-14-2022 Monocytes/100 WBC (Bld) 9.0 % . [facility] Neutrophils Auto (Bld) [#/Vo l]Ordered By: Leah Huang on 03-14-2022 Neutrophils (Bld) [#/Vol] 4.0 10*3/uL 1.8-7.[address] [facility] Neutrophils/100 WBC Auto (Bl d)Ordered By: Leah Huang on 03-14-2022 Neutrophils/100 WBC (Bld) 66.7 % . [facility] Platelet mean volume Auto (B ld) [Entitic vol]Ordered By: Leah Huang on 03-14-2022 Platelet mean volume (Bld) [Entitic vol] 8.9 fL 6.6-10.[address] [facility] Platelets Auto (Bld) [#/Vol] Ordered By: Leah Huang on 03-14-2022 Platelets (Bld) [#/Vol] 143 10*3/uL 150-[address] [facility] Protein Auto test strip (U) [Mass/Vol]Ordered By: Sarah Osuna on 03-14-2022 Protein (U) [Mass/Vol] Negative Negative [facility] Protein [Mass/volume] in Ser um or PlasmaOrdered By: Leah Huang on 03-14-2022 Protein [Mass/Vol] 5.8 g/dL 6.1-7.9 [facility] Protein [Mass/volume] in Uri neOrdered By: Sarah Osuna on 03-14-2022 Protein (U) [Mass/Vol] 13 mg/dL 0-9 [facility] RBC Auto (Bld) [#/Vol]Ordere d By: Leah Huang on 03-14-2022 RBC (Bld) [#/Vol] 3.88 10*6/uL 3.90-5.60 [facility] Serum or plasma alanine vivas otransferase measurement without P-5'-P (enzymatic activiOrdered By: Leah Huang on 03-14-2022 ALT No additional P-5'-P [Catalytic activity/Vol] 35 U/L 10-60 [facility] Serum or plasma albumin/glob ulin mass ratioOrdered By: Leah Huang on 03-14-2022 Albumin/Globulin [Mass ratio] 0.5 {ratio} [facility] Serum or plasma alkaline dilan sphatase measurement (enzymatic activity/volume)Ordered By: Leah Huang on 03-14-2022 ALP [Catalytic activity/Vol] 120 U/L 32-[address] [facility] Serum or plasma aspartate am inotransferase measurement (enzymatic activity/volume)Ordered By: Leah Huang on 03-14-2022 AST [Catalytic activity/Vol] 36 U/L 10-[address] [facility] Serum or plasma total biliru bin measurement (mass/volume)Ordered By: Leah Huang on 03-14-2022 Bilirubin [Mass/Vol] 1.0 mg/dL 0.3-1.2 [facility] Squamous epithelial cells de tection in urine sediment by light microscopyOrdered By: Sarah Osuna on 03-14-2022 Epithelial cells.squamous LM Ql (Urine sed) None seen [HPF] 0-[address] [facility] Urea nitrogen [Mass/volume] in UrineOrdered By: Leah Huang on 03-14-2022 Urea nitrogen (U) [Mass/Vol] 454 mg/dL Not Estab. [facility] Comment on above: Performed at: [address] [id number] [facility] Quality Control Technician: Genaro Becerril PhD, Phone: [phone] Urine appearanceOrdered By: Sarah Osuna on 03-14-2022 Appearance (U) Clear Clear [facility] Urine bacteria detection by automated methodOrdered By: Sarah Osuna on 03-14-2022 Bacteria Auto Ql (U) None seen None Seen [facility] Urine colorOrdered By: Sarah Osuna on 03-14-2022 Color (U) Yellow Yellow [facility] Urine glucose measurement by automated test strip (mass/volume)Ordered By: Sarah Osuna on 03-14-2022 Glucose Auto test strip (U) [Mass/Vol] >=1000 mg/dL Normal [facility] Urine hemoglobin detection b y automated test stripOrdered By: Sarah Osuna on 03-14-2022 Hemoglobin Auto test strip Ql (U) 2+ Negative [facility] Urine leukocyte esterase det ection by automated test stripOrdered By: Sarah Osuna on 03-14-2022 Leukocyte esterase Auto test strip Ql (U) Negative Negative [facility] Urine nitrite detection by a utomated test stripOrdered By: Sarah Osuna on 03-14-2022 Nitrite Auto test strip Ql (U) Negative Negative [facility] Urine protein/creatinine rat ioOrdered By: Sarah Osuna on 03-14-2022 Protein/Creatinine (U) [Ratio] 169 mg/g{Cre} 0-[address] [facility] Urine sodium measurement (mo les/volume)Ordered By: Leah Huang on 03-14-2022 Sodium (U) [Moles/Vol] 20 mmol/L [facility] Comment on above: No reference range e stablished Urobilinogen Auto test strip (U) [Mass/Vol]Ordered By: Sarah Osuna on 03-14-2022 Urobilinogen (U) [Mass/Vol] Normal mg/dL Normal [facility] Yeast detection in urine sed iment by light microscopyOrdered By: Sarah Osuna on 03-14-2022 Yeast LM Ql (Urine sed) Budding yeast [HPF] Non e Seen [facility] Comment on above: 1+ BUDDING YEAST pH Auto test strip (U)Ordere d By: Sarah Osuna on 03-14-2022 pH (U) 1.020 [pH] 1.001-1.[address] [facility] pH (U) 5.5 [pH] 5.0-9.[address] [facility] POINT OF CARE GLUCOSEon 01-10 Glucose [Mass/Vol] 161 mg/dL Critically high [facility]106 [facility] Comment on above: Performed By: #### T STEFF, BMP #### [facility] [address] [address] [address] Ladan Diehl POINT OF CARE GLUCOSEon 01-09 Glucose [Mass/Vol] 358 mg/dL Critically high [facility] Comment on above: Performed By: #### A 1C #### [facility] [address] [place] [address] Dr. Ladan Diehl Glucose [Mass/Vol] 279 mg/dL Critically high [address] [place] [address] Comment on above: Performed By: #### A 1C #### [facility] [address] [place] [address] Dr. Ladan Diehl Glucose [Mass/Vol] 247 mg/dL Critically high [address] [place] [address] Comment on above: Performed By: #### T STEFF, BMP #### [facility] [address] [place] [address] Dr. Ladan Diehl Glucose [Mass/Vol] 357 mg/dL Critically high [address] [place] [address] Comment on above: Performed By: #### A 1C #### [facility] [address] [place] [address] Dr. Ladan Diehl PROF CHEM 8 (BAS METB)on Anion gap [Moles/Vol] 11.1 mmol/L Normal [facility] Comment on above: Performed By: #### T STEFF, BMP #### [facility] [address] [place] [address] Dr. Ladan Diehl Calcium [Mass/Vol] 8.8 mg/dL Normal 8.5-10.1 [facility] Comment on above: Performed By: #### T STEFF, BMP #### [facility] [address] [place], [place] [id number] Dr. Ladan Diehl Chloride [Moles/Vol] 99 mmol/L Normal 98-107 [facility] Comment on above: Performed By: #### T SH, BMP #### [facility] [address] [place] [address] Dr. Ladan Diehl CO2 [Moles/Vol] 27.2 mmol/L Normal 21.0-32.0 [facility] Comment on above: Performed By: #### T SH, BMP #### [facility] [address] [place] [address] Dr. Ladan Diehl Creatinine [Mass/Vol] 1.59 mg/dL Critically high 0.70-1.30 [facility] Comment on above: Performed By: #### T SH, BMP #### [facility] [address] [place] [address] Dr. Ladan Diehl EGFR-AF BELARUSIAN 53 mL/min/1.73m2 Critically low >=60 [facility] Comment on above: Performed By: #### T SH, BMP #### [facility] [address] [place] [address] Dr. Ladan Diehl EGFR-NON AF BELARUSIAN 44 mL/min/1.73m2 Critically low >=60 [facility] Comment on above: Performed By: #### T SH, BMP #### [facility] [address] [place] [address] Dr. Ladan Diehl Glucose [Mass/Vol] 284 mg/dL Critically high 74-106 [facility] Comment on above: Performed By: #### T SH, BMP #### [facility] [address] [place] [address] Dr. Ladan Diehl Potassium [Moles/Vol] 4.2 mmol/L Normal 3.5-5.1 [facility] Comment on above: Performed By: #### T SH, BMP #### [facility] [address] [place] [address] Dr. Ladan Diehl Sodium [Moles/Vol] 133 mmol/L Critically low 136-145 [facility] Comment on above: Performed By: #### T SH, BMP #### [facility] [address] [address] [address] Ladan Diehl Urea nitrogen [Mass/Vol] 22.0 mg/dL Critically high 7.0-18 .0 [facility] Comment on above: Performed By: #### T SH, BMP #### [facility] [address] [place], [place] [address] Dr. Ladan Diehl Urea nitrogen/Creatinine [Mass ratio] 13.8 mg/mg Normal [facility] Comment on above: Performed By: #### T STEFF, BMP #### [facility] [address] [address] [address] Ladan Diehl TROPONIN, HIGH SENSITIVITYon 01-24-2022 HSTROP 13.7 pg/mL Normal 4.0-76.1 [facility] Comment on above: Result Comment: CUT- OFF POINTS HAVE BEEN ESTABLISHED BASED ON THE FOURTH UNIVERSAL DEFINITIONS OF MYOCARDIAL INFARCTION. THE UPPER REFERENCE LIMIT (URL) OF TROPONIN, DEFINED THE 99TH PERCENTILE OF cTnI DISTRIBUTION IN A REFERENCE POPULATION, HAS BEEN CONFIRMED THE DECISION THRESHOLD FOR LA DIAGNOSIS. Performed By: #### H STROPN #### [facility] [address] [address] [address] Ladan Diehl TSHon 01-24-2022 TSH 0.381 uIU/mL Normal 0.358-3.740 [facility] Comment on above: Performed By: #### T STEFF, BMP #### [facility] [address] [address] [address] Ladan Diehl US LIT DOP LEG [...] CAROL YIP Date: 2022-01-24 09:51 Normal [facility] BNPon 01-23-2022 Natriuretic peptide B (Bld) [Mass/Vol] 262.0 pg/mL Normal <=900.0 [facility] Comment on above: Performed By: #### A 1C #### [facility] [address] [place] [address] Dr. Ladan Diehl CBC AUTO DIFFon 01-23-2022 BASO # 0.1 103/ul Normal 0.0-0.1 [facility] Comment on above: Performed By: #### T SH, BMP #### [facility] [address] [place] [address] Dr. Ladan Diehl Basophils/100 WBC (Bld) 0.8 % Normal 0.2-2.0 [facility] Comment on above: Performed By: #### T SH, BMP #### [facility] [address] [place] [address] Dr. Ladan Diehl EO # 0.3 103/ul Normal 0.0-0.7 [facility] Comment on above: Performed By: #### T SH, BMP #### [facility] [address] [place] [address] Dr. Ladan Diehl Eosinophils/100 WBC (Bld) 4.4 % Normal 0.9-7.0 [facility] Comment on above: Performed By: #### T SH, BMP #### [facility] [address] [place] [address] Dr. Ladan Diehl Erythrocyte distribution width (RBC) [Ratio] 14.0 % Normal 11.0-15.0 [facility] Comment on above: Performed By: #### T SH, BMP #### [facility] [address] [place] [address] Dr. Ladan Diehl Hematocrit (Bld) [Volume fraction] 38.3 % Critically low 42.0-54.0 [facility] Comment on above: Performed By: #### T SH, BMP #### [facility] [address] [place] [address] Dr. Ladan Diehl Hemoglobin (Bld) [Mass/Vol] 12.0 g/dL Critically low 14.0-18.0 [facility] Comment on above: Performed By: #### T SH, BMP #### [facility] [address] [address] [address] Ladan Diehl IG # 0.03 10e3/ul Normal 0.00-0.03 [facility] Comment on above: Performed By: #### T SH, BMP #### [facility] [address] [place] [address] Dr. Ladan Diehl IG % 0.5 % Normal 0.0-0.5 [facility] Comment on above: Performed By: #### T SH, BMP #### [facility] [address] [place] [address] Dr. Ladan Diehl LYMPH # 1.2 103/ul Normal 1.2-3.8 [facility] Comment on above: Performed By: #### T SH, BMP #### [facility] [address] [place] [address] Dr. Ladan Diehl Lymphocytes/100 WBC (Bld) 20.2 % Critically low 20.5-60.0 [facility] Comment on above: Performed By: #### T SH, BMP #### [facility] [address] [place] [address] Dr. Ladan Diehl MANUAL DIFF REQ NO Normal [facility] Comment on above: Performed By: #### T SH, BMP #### [facility] [address] [place] [address] Dr. Ladan Diehl MCH (RBC) [Entitic mass] 29.6 pg Normal 25.9-34.0 [facility] Comment on above: Performed By: #### T SH, BMP #### [facility] [address] [place] [address] Dr. Ladan Diehl MCHC (RBC) [Mass/Vol] 31.3 g/dL Normal 29.9-35.2 [facility] Comment on above: Performed By: #### T SH, BMP #### [facility] [address] [place] [address] Dr. Ladan Diehl MCV (RBC) [Entitic vol] 94.6 fL Critically high 80.0-94 .0 [facility] Comment on above: Performed By: #### T SH, BMP #### [facility] [address] [address] [address] Ladan Diehl MONO # 0.7 103/ul Normal 0.3-0.8 [facility] Comment on above: Performed By: #### T SH, BMP #### [facility] [address] [place] [address] Dr. Ladan Diehl Monocytes/100 WBC (Bld) 10.7 % Normal 1.7-12.0 [facility] Comment on above: Performed By: #### T SH, BMP #### [facility] [address] [place] [address] Dr. Ladan Diehl NEUT # 3.9 103/ul Normal 1.4-6.5 [facility] Comment on above: Performed By: #### T SH, BMP #### [facility] [address] [place] [address] Dr. Ladan Diehl Neutrophils/100 WBC (Bld) 63.4 % Normal 43.0-75.0 [facility] Comment on above: Performed By: #### T SH, BMP #### [facility] [address] [place] [address] Dr. Ladan Diehl Platelet mean volume (Bld) [Entitic vol] 10.0 fL Normal 9.5-13.5 [facility] Comment on above: Performed By: #### T SH, BMP #### [facility] [address] [place] [address] Dr. Ladan Diehl PLT 171 103/ul Normal 150-450 [facility] Comment on above: Performed By: #### T SH, BMP #### [facility] [address] [place] [address] Dr. Ladan Diehl RBC 4.05 106/ul Critically low 4.70-6.10 [facility] Comment on above: Performed By: #### T SH, BMP #### [facility] [address] [place] [address] Dr. Ladan Diehl WBC 6.1 103/ul Normal 4.0-11.0 [facility] Comment on above: Performed By: #### T , [facility] #### [facility] [address] [address] [address] Ladan Diehl CTA CHEST WO W [...] XIN BUI Date: 2022-01-23 19:35 Normal [facility] Covid-19 PCR (CVDTB)on 01-09 SARS-CoV-2 (COVID-19) RNA MANJIT+probe Ql (Unsp spec) Not detected Normal NOT DETECTED [facility] Comment on above: Result Comment: [...] for this test is supported by the Frame [employer]er of Health and Human Service's declaration that [...] used). Performed By: #### A 1C #### [facility] [address] [place] [address] Dr. Ladan Diehl LACTATE/LACTIC ACIDon 2021 Lactate [Moles/Vol] 1.6 mmol/L Normal 0.4-1.9 [facility] Comment on above: Performed By: #### L ACT #### [facility] [address] [place] [address] Dr. Ladan Diehl PROF 14(COMP METB)on 022 Albumin [Mass/Vol] 2.7 g/dL Critically low 3.4-5.0 [facility] Comment on above: Performed By: #### A 1C #### [facility] [address] [place] [address] Dr. Ladan Diehl Albumin/Globulin [Mass ratio] 0.5 {ratio} Normal [facility] Comment on above: Performed By: #### A 1C #### [facility] [address] [place] [address] Dr. Ladan Diehl ALP [Catalytic activity/Vol] 120 U/L Critically high 46-116 [facility] Comment on above: Performed By: #### A 1C #### [facility] [address] [place] [address] Dr. Ladan Diehl ALT [Catalytic activity/Vol] 23 U/L Normal 16-63 [facility] Comment on above: Performed By: #### A 1C #### [facility] [address] [place] [address] Dr. Ladan Diehl Anion gap [Moles/Vol] 10.3 mmol/L Normal [facility] Comment on above: Performed By: #### A 1C #### [facility] [address] [place] [address] Dr. Ladan Diehl AST [Catalytic activity/Vol] 29 U/L Normal 15-37 [facility] Comment on above: Performed By: #### A 1C #### [facility] [address] [address] [address] Ladan Diehl Bilirubin [Mass/Vol] 1.0 mg/dL Normal 0.2-1.0 [facility] Comment on above: Performed By: #### A 1C #### [facility] [address] [address] [address] Ladan Diehl Calcium [Mass/Vol] 8.8 mg/dL Normal 8.5-10.1 [facility] Comment on above: Performed By: #### A 1C #### [facility] [address] [address] [address] Ladan Diehl Chloride [Moles/Vol] 101 mmol/L Normal 98-107 [facility] Comment on above: Performed By: #### A 1C #### [facility] [address] [address] [address] Ladan Diehl CO2 [Moles/Vol] 30.8 mmol/L Normal 21.0-32.0 [facility] Comment on above: Performed By: #### A 1C #### [facility] [address] [place] [address] Dr. Ladan Diehl Creatinine [Mass/Vol] 1.40 mg/dL Critically high 0.70-1.30 [facility] Comment on above: Performed By: #### A 1C #### [facility] [address] [address] [address] Ladan Diehl EGFR-AF BELARUSIAN >60 Normal >=60 [facility] Comment on above: Performed By: #### A 1C #### [facility] [address] [address] [address] Ladan Diehl EGFR-NON AF BELARUSIAN 51 mL/min/1.73m2 Critically low >=60 [facility] Comment on above: Performed By: #### A 1C #### [facility] [address] [place] [address] Dr. Ladan Diehl Globulin (S) [Mass/Vol] 5.3 g/dL Normal [facility] Comment on above: Performed By: #### A 1C #### [facility] [address] [place] [address] Dr. Ladan Diehl Glucose [Mass/Vol] 125 mg/dL Critically high 74-106 [facility] Comment on above: Performed By: #### A 1C #### [facility] [address] [address] [address] Ladan Diehl Potassium [Moles/Vol] 4.1 mmol/L Normal 3.5-5.1 [facility] Comment on above: Performed By: #### A 1C #### [facility] [address] [place] [address] Dr. Ladan Diehl Protein [Mass/Vol] 8.0 g/dL Normal 6.4-8.2 [facility] Comment on above: Performed By: #### A 1C #### [facility] [address] [place] [address] Dr. Ladan Diehl Sodium [Moles/Vol] 138 mmol/L Normal 136-145 [facility] Comment on above: Performed By: #### A 1C #### [facility] [address] [place] [address] Dr. Ladan Diehl Urea nitrogen [Mass/Vol] 20.0 mg/dL Critically high 7.0-18 .0 [facility] Comment on above: Performed By: #### A 1C #### [facility] [address] [place] [address] Dr. Ladan Diehl Urea nitrogen/Creatinine [Mass ratio] 14.3 mg/mg Normal [facility] Comment on above: Performed By: #### A 1C #### [facility] [address] [place] [address] Dr. Ladan Diehl PROTIMEon 01-23-2022 INR Coag (PPP) [Relative time] 1.02 {INR} Normal [facility] Comment on above: Performed By: #### P T, PTT #### [facility] [address] [place] [address] Dr. Ladan Diehl INR GUIDELINES SEE BELOW Normal [facility] Comment on above: Result Comment: KALI RED INR: 2.0 - 3.0 CONDITIONS NOT LISTED BELOW 2.5 - 3.5 FOR PROSTHETIC HEART VALVE REPLACEMENT 2.5 - 3.5 RECURRENT THROMBOSIS Performed By: #### P T, PTT #### [facility] [address] [address] [address] Ladan Diehl PT Coag (PPP) [Time] 11.0 s Normal 9.0-11.6 [facility] Comment on above: Performed By: #### P T, PTT #### [facility] [address] [address] [address] Ladan Diehl PTTon 01-23-2022 aPTT Coag (Bld) [Time] 27.6 s Normal 22.3-36.2 Th e [facility] Comment on above: Performed By: #### P T, PTT #### [facility] [address] [place] [address] Dr. Ladan Diehl TROPONIN, HIGH SENSITIVITYon 01-23-2022 HSTROP 10.4 pg/mL Normal 4.0-76.1 [facility] Comment on above: Result Comment: CUT- OFF POINTS HAVE BEEN ESTABLISHED BASED ON THE FOURTH UNIVERSAL DEFINITIONS OF MYOCARDIAL INFARCTION. THE UPPER REFERENCE LIMIT (URL) OF TROPONIN, DEFINED THE 99TH PERCENTILE OF cTnI DISTRIBUTION IN A REFERENCE POPULATION, HAS BEEN CONFIRMED THE DECISION THRESHOLD FOR LA DIAGNOSIS. Performed By: #### A 1C #### [facility] [address] [place] [address] ABD/PELV W CONon [...] by: TANNER PEDRAZA Date: 2022-01-18 23:39 Normal [facility] XR CHEST 1 Von 01-19-2022 [...] by: ROSELIA RIVERA Date: 2022-01-18 22:16 Normal [facility] XR KNEE LT 4V or [...] by: JENNIFER CASTILLO Date: 2022-01-18 23:06 Normal [facility] CBC AUTO DIFFon 01-18-2022 BASO # 0.1 103/ul Normal 0.0-0.1 [facility] Comment on above: Performed By: #### C BC #### [facility] [address] [place], [place] [address] Dr. Ladan Diehl Basophils/100 WBC (Bld) 0.8 % Normal 0.2-2.0 [facility] Comment on above: Performed By: #### C BC #### [facility] [address] [place] [address] Dr. Ladan Diehl EO # 0.4 103/ul Normal 0.0-0.7 [facility] Comment on above: Performed By: #### C BC #### [facility] [address] [place] [address] Dr. Ladan Diehl Eosinophils/100 WBC (Bld) 4.3 % Normal 0.9-7.0 [facility] Comment on above: Performed By: #### C BC #### [facility] [address] [place] [address] Dr. Ladan Diehl Erythrocyte distribution width (RBC) [Ratio] 14.4 % Normal 11.0-15.0 [facility] Comment on above: Performed By: #### C BC #### [facility] [address] [place] [address] Dr. Ladan Diehl Hematocrit (Bld) [Volume fraction] 37.2 % Critically low 42.0-54.0 [facility] Comment on above: Performed By: #### C BC #### [facility] [address] [place] [address] Dr. Ladan Diehl Hemoglobin (Bld) [Mass/Vol] 11.9 g/dL Critically low 14.0-18.0 [facility] Comment on above: Performed By: #### C BC #### [facility] [address] [place] [address] Dr. Ladan Diehl IG # 0.04 10e3/ul Critically high 0.00-0.03 [facility] [facility] Comment on above: Performed By: #### C BC #### [facility] [address] [place] [address] Dr. Ladan Diehl IG % 0.5 % Normal 0.0-0.5 [facility] Comment on above: Performed By: #### C BC #### [facility] [address] [place] [address] Dr. Ladan Diehl LYMPH # 2.2 103/ul Normal 1.2-3.8 [facility] Comment on above: Performed By: #### C BC #### [facility] [address] [place] [address] Dr. Ladan Diehl Lymphocytes/100 WBC (Bld) 26.2 % Normal 20.5-60.0 [facility] Comment on above: Performed By: #### C BC #### [facility] [address] [place] [address] Dr. Ladan Diehl MANUAL DIFF REQ NO Normal [facility] Comment on above: Performed By: #### C BC #### [facility] [address] [place] [address] Dr. Ladan Diehl MCH (RBC) [Entitic mass] 30.4 pg Normal 25.9-34.0 [facility] Comment on above: Performed By: #### C BC #### [facility] [address] [place] [address] Dr. Ladan Diehl MCHC (RBC) [Mass/Vol] 32.0 g/dL Normal 29.9-35.2 [facility] Comment on above: Performed By: #### C BC #### [facility] [address] [place] [address] Dr. Ladan Diehl MCV (RBC) [Entitic vol] 94.9 fL Critically high 80.0-94 .0 [facility] Comment on above: Performed By: #### C BC #### [facility] [address] [place] [address] Dr. Ladan Diehl MONO # 0.9 103/ul Critically high 0.3-0.8 [facility] Comment on above: Performed By: #### C BC #### [facility] [address] [place] [address] Dr. Ladan Diehl Monocytes/100 WBC (Bld) 10.3 % Normal 1.7-12.0 [facility] Comment on above: Performed By: #### C BC #### [facility] [address] [place] [address] Dr. Ladan Diehl NEUT # 5.0 103/ul Normal 1.4-6.5 [facility] Comment on above: Performed By: #### C BC #### [facility] [address] [place] [address] Dr. Ladan Diehl Neutrophils/100 WBC (Bld) 57.9 % Normal 43.0-75.0 [facility] Comment on above: Performed By: #### C BC #### [facility] [address] [place] [address] Dr. Ladan Diehl Platelet mean volume (Bld) [Entitic vol] 9.9 fL Normal 9.5-13.5 [facility] Comment on above: Performed By: #### C BC #### [facility] [address] [place] [address] Dr. Ladan Diehl PLT 180 103/ul Normal 150-450 [facility] Comment on above: Performed By: #### C BC #### [facility] [address] [place] [address] Dr. Ladan Diehl RBC 3.92 106/ul Critically low 4.70-6.10 [facility] Comment on above: Performed By: #### C BC #### [facility] [address] [place] [address] Dr. Ladan Diehl WBC 8.6 103/ul Normal 4.0-11.0 [facility] Comment on above: Performed By: #### C BC #### [facility] [address] [place] [address] Dr. Ladan Diehl PROF 14(COMP METB)on 022 Albumin [Mass/Vol] 2.6 g/dL Critically low 3.4-5.0 [facility] Comment on above: Performed By: #### C MP #### [facility] [address] [place] [address] Dr. Ladan Diehl Albumin/Globulin [Mass ratio] 0.5 {ratio} Normal [facility] Comment on above: Performed By: #### C MP #### [facility] [address] [place] [address] Dr. Ladan Diehl ALP [Catalytic activity/Vol] 184 U/L Critically high 46-116 [facility] Comment on above: Performed By: #### C MP #### [facility] [address] [place] [address] Dr. Ladan Diehl ALT [Catalytic activity/Vol] 24 U/L Normal 16-63 [facility] Comment on above: Performed By: #### C MP #### [facility] [address] [address] [address] Ladan Diehl Anion gap [Moles/Vol] 10.1 mmol/L Normal Th e [facility] Comment on above: Performed By: #### C MP #### [facility] [address] [address] [address] Ladan Diehl AST [Catalytic activity/Vol] 22 U/L Normal 15-37 [facility] Comment on above: Performed By: #### C MP #### [facility] [address] [address] [address] Ladan Diehl Bilirubin [Mass/Vol] 0.5 mg/dL Normal 0.2-1.0 [facility] Comment on above: Performed By: #### C MP #### [facility] [address] [address] [address] Ladan Diehl Calcium [Mass/Vol] 8.6 mg/dL Normal 8.5-10.1 [facility] Comment on above: Performed By: #### C MP #### [facility] [address] [address] [address] Ladan Diehl Chloride [Moles/Vol] 101 mmol/L Normal 98-107 [facility] Comment on above: Performed By: #### C MP #### [facility] [address] [address] [address] Ladan Diehl CO2 [Moles/Vol] 30.9 mmol/L Normal 21.0-32.0 [facility] Comment on above: Performed By: #### C MP #### [facility] [address] [address] [address] Ladan Diehl Creatinine [Mass/Vol] 1.72 mg/dL Critically high 0.70-1.30 [facility] Comment on above: Performed By: #### C MP #### [facility] [address] [address] [address] Ladan Diehl EGFR-AF BELARUSIAN 49 mL/min/1.73m2 Critically low >=60 [facility] Comment on above: Performed By: #### C MP #### [facility] [address] [address] [address] Ladan Diehl EGFR-NON AF BELARUSIAN 40 mL/min/1.73m2 Critically low >=60 [facility] Comment on above: Performed By: #### C MP #### [facility] [address] [address] [address] Ladan Diehl Globulin (S) [Mass/Vol] 5.2 g/dL Normal [facility] Comment on above: Performed By: #### C MP #### [facility] [address] [address] [address] Ladan Diehl Glucose [Mass/Vol] 253 mg/dL Critically high 74-106 [facility] Comment on above: Performed By: #### C MP #### [facility] [address] [address] [address] Ladan Diehl Potassium [Moles/Vol] 4.0 mmol/L Normal 3.5-5.1 [facility] Comment on above: Performed By: #### C MP #### [facility] [address] [address] [address] Ladan Diehl Protein [Mass/Vol] 7.8 g/dL Normal 6.4-8.2 [facility] Comment on above: Performed By: #### C MP #### [facility] [address] [address] [address] Ladan Diehl Sodium [Moles/Vol] 138 mmol/L Normal 136-145 [facility] Comment on above: Performed By: #### C MP #### [facility] [address] [address] [address] Ladan Diehl Urea nitrogen [Mass/Vol] 30.0 mg/dL Critically high 7.0-18 .0 [facility] Comment on above: Performed By: #### C MP #### [facility] [address] [address] [address] Ladan Diehl Urea nitrogen/Creatinine [Mass ratio] 17.4 mg/mg Normal [facility] Comment on above: Performed By: #### C MP #### [facility] [address] [address] [address] Ladan Diehl Vital Signs Date Time Vital Sign Value Performing Clinician Facility 05-01-2022 06:00-0400 Diastolic blood pressure 58 mm[Hg] [facility] 05-01-2022 06:00-0400 Heart rate 89 /min Et3 [facility] 05-01-2022 06:00-0400 Respiratory rate 20 /min Et3 [facility] 05-01-2022 06:00-0400 SaO2% (BldA) [Mass fraction] 91 % Et3 [facility] Comment on above: 2 L NC at baseline 05-01-2022 06:00-0400 Systolic blood pressure 86 mm[Hg] Et3 [facility] 04-12-2022 15:01-0400 Body temperature 98.3 [degF] MD Ayden Freeman Work Phone: [facility] 04-12-2022 15:01-0400 Diastolic blood pressure 68 mm[Hg] MD Ayden Freeman Work Phone: [facility] 04-12-2022 15:01-0400 Heart rate 90 /min MD Ayden Freeman Work Phone: [facility] 04-12-2022 15:01-0400 Respiratory rate 20 /min MD Ayden Freeman Work Phone: [facility] 04-12-2022 15:01-0400 SaO2% (BldA) [Mass fraction] 92 % MD Ayden Freeman Work Phone: [facility] 04-12-2022 15:01-0400 Systolic blood pressure 130 mm[Hg] MD Ayden Freeman Work Phone: [facility] 04-12-2022 10:48-0400 Body height 177.8 cm MD Ayden Freeman Work Phone: [facility] 04-12-2022 10:48-0400 Body weight 154.22 kg MD Ayden Freeman Work Phone: [facility] 04-09-2022 12:00-0400 Diastolic blood pressure 81 mm[Hg] MD Ayden Freeman Work Phone: [facility] 04-09-2022 12:00-0400 Heart rate 99 /min MD Ayden Freeman Work Phone: [facility] 04-09-2022 12:00-0400 Inhaled oxygen flow rate 2 L/min MD Ayden Freeman Work Phone: [facility] 04-09-2022 12:00-0400 Respiratory rate 18 /min MD Ayden Freeman Work Phone: [facility] 04-09-2022 12:00-0400 SaO2% (BldA) [Mass fraction] 98 % MD Ayden Freeman Work Phone: [facility] 04-09-2022 12:00-0400 Systolic blood pressure 127 mm[Hg] MD Ayden Freeman Work Phone: [facility] 04-09-2022 05:22-0400 Body weight 162 kg MD Ayden Freeman Work Phone: [facility] 04-08-2022 20:00-0400 Inhaled oxygen concentration 30 % MD Ayden Freeman Work Phone: [facility] 04-08-2022 14:56-0400 Body height 177.8 cm MD Ayden Freeman Work Phone: [facility] 04-08-2022 08:11-0400 Body temperature 98 [degF] MD Ayden Freeman Work Phone: [facility] 03-16-2022 11:59-0400 Diastolic blood pressure 90 mm[Hg] MD Ayden Freeman Work Phone: [facility] 03-16-2022 11:59-0400 Heart rate 95 /min MD Ayden Freeman Work Phone: [facility] 03-16-2022 11:59-0400 Respiratory rate 18 /min MD Ayden Freeman Work Phone: [facility] 03-16-2022 11:59-0400 SaO2% (BldA) [Mass fraction] 95 % MD Ayden Freeman Work Phone: [facility] 03-16-2022 11:59-0400 Systolic blood pressure 147 mm[Hg] MD Ayden Freeman Work Phone: [facility] 03-16-2022 08:07-0400 Body temperature 97.8 [degF] MD Ayden Freeman Work Phone: [facility] 03-16-2022 06:00-0400 Body weight 163.5 kg MD Ayden Freeman Work Phone: [facility] 03-14-2022 17:24-0400 Body height 177.8 cm MD Ayden Freeman Work Phone: [facility] 03-14-2022 16:00-0400 Inhaled oxygen flow rate 1 L/min MD Ayden Freeman Work Phone: [facility] Encounters Encounter Date Encounter Type Care Provider [...] Start: 05-01-2022 End: 05-01-2022 ambulatory [facility] Emergenc y Triage, Treat and Transport Start: 05-01-2022 End: 05-01-2022 Emergency department patient visit [facility] Emergency Triage, Treat and Transport Comment on above: Arrived Start: 04-24-2022 End: 04-30-2022 ambulatory UNKNOWN PROVIDER Facility:[facility] Start: 04-12-2022 End: 04-12-2022 Emergency department patient visit Ramesh Byrd Facility:[facility] Start: 04-12-2022 End: 04-12-2022 Emergency department patient visit MD Ayden Freeman Work Phone: [facility] Start: 04-10-2022 End: 04-17-2022 ambulatory UNKNOWN PROVIDER Facility:[facility] Start: 04-02-2022 End: 04-09-2022 Evaluation and management of inpatient MD Ayden Freeman Work Phone: [facility] [place] [facility] Start: 03-15-[address] AYDEN FREEMAN Facil ity:[facility]1 Start: 03-14-2022 End: 03-14-2022 Patient encounter procedure JEFF Saul CARLOS [facility] [place] Start: 03-14-2022 End: 03-16-2022 Evaluation and management of inpatient MD Ayden Freeman Work Phone: [facility] [place] [facility] Start: 02-15-[address] AYDEN FREEMAN Facil ity:[facility]1 Start: 02-01-2022 End: 02-01-2022 ambulatory HINA DIOP . Facility:[facility] Start: 01-24-2022 End: 01-24-[address] CAROL YIP Facility:[facility] Start: 01-18-2022 End: 01-19-[address] MASON CASTRO Facility:[facility] Procedures Date Procedure Procedure Detail Performing Clinician Start: 12-19-[address] AYDEN FRIEND Comment on above: Performed By: #### P [facility] #### [facility] [address] [address] [address] Ladan Diehl Start: 04-12-2022 Plain chest [...] Start: 05-11-2022 Influenza vaccination Influenza Vaccine (#1) [facility] Start: 04-12-2022 Plain chest X-ray XR chest 2V* [facility] Start: 04-12-2022 End: 04-12-2022 Emergency department patient visit Departed Emergency [facility] Start: 04-09-2022 [facility] Work Phone: Start: 04-09-2022 [facility] Work Phone: Start: 04-02-2022 End: 04-09-2022 Evaluation and management of inpatient Abrasion of elbow [facility] [place] [place] [facility] Start: 04-02-2022 CT angiography of thorax CT angio chest PE protocol [facility] Start: 04-02-2022 Hospital admission [facility] Work Phone: Start: 08-23-2022 X-ray of left knee XR knee LT 2V [facility] Start: 04-02-2022 Plain chest X-ray XR chest 1V portable [facility] Start: 04-02-2022 Plain X-ray of left hip XR hip LT min 2V(w/wo pelvis)* [facility] Start: 04-02-2022 Plain X-ray of left elbow XR elbow LT min 3V* [facility] Start: 03-16-2022 [facility] Work Phone: Start: 03-14-2022 Referral to rn intake [facility] Work Phone: Start: 03-14-2022 Hospital admission [facility] Work Phone: Start: 12-09-2021 Welcome to [...] neoplasm of colon Colonoscopy [facility] Patient Education [facility] Work Phone: Patient referral [facility] Work Phone: Payers Date Payer Category Payer Self-pay [id number] 2021 Medicare [employer] - MEDICARE UHC HMO SNP [id number] 2021-Present [phone] [address] [address] [place] [address] Medicare [id number] 2021 Private Health Insurance [id number] 2017 Unknown [id number] 1959 Medicaid [id number] 1959 Medicare [id number] 1957 Unknown [id number] [id number]. 732 1957 Unknown [id number] 2.16.840.1.588686.3.579.2. 732 1957 Unknown [id number] 2.16.840.1.067912.3.579.2. 732 1957 Unknown [id number] 2.16.840.1.589424.3.579.2. 732 1957 Unknown [id number] 2.16.840.1.065925.3.579.2. 593 1957 Unknown [id number] 2.16.840.1.014831.3.579.2. 593 1957 Unknown [id number] 2.16.840.1.679371.3.579.2. 593 1957 Unknown [id number] 2.16.840.1.984671.3.579.2. 593 1957 Unknown [id number] 2.16.840.1.502912.3.579.2. 593 1957 Unknown [id number] 2.16.840.1.450072.3.579.2. 593 1957 Unknown [id number] 2.16.840.1.925474.3.579.2. 593 1957 Unknown [id number] 2.16.840.1.058075.3.579.2. 593 1957 Unknown [id number] 2.16.840.1.227525.3.579.2. 593 1957 Unknown [id number] 2.16.840.1.547205.3.579.2. 1259 Medicare Medicare [id number] Medicare Medicare Psych-IP Part A [id number] Medicare [place] [facility] PFFS [id number] Medicare [place] [employer] [facility] [id number] Unknown [facility] [id number] Unknown [id number] 2.16.840.1.225898.3.579.2. 531 Social History Date Type Detail Facility Tobacco smoking status No Smoking Status Entered [facility] Sex Assigned At Male [facility] Start: 04-02-2022 End: 04-12-2022 Tobacco smoking status RIIS Never smoked tobacco (finding) 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 EMERGENCY TRIAGE, TREAT AND TRANSPORT (ET3) DOCUMENTATION OF TELEHEALTH VISIT Date / Time: 05/01/2022 06 Name: Evelin Patterson : 1955 SSN: [id number] EMS Agency: [facility] [x] Verbal consent obtained [...] Peter Molina DO documented in this encounter [facility] 04-08-2022 Progress note Note Date/Time April 08, 2022 1:38pm [facility] [address] [place] [address] Hospitalist Progress Note Signed Patient: Evelin Patterson MR#: [id number] : 1955 Acct:[id number] Age/Sex: 66 / M Adm Date: 2 Loc: Room: [address] [place] [address] Type: ADM INOo Attending Dr: Lupe Hernandez [...] Hypothyroidism: Plan Patient currently awaiting placement to care home facility. Remains in normal sinus rhythm. He [...] <Electronically signed by Lupe Hernandez MD> 04/08/228 [facility] Work Phone: 1(711) 756-884108-28-2022 Discharge summary Author Lkue Moran [facility] April 07, 2022 4:16pm Note Date/Time April 05, 2022 10 :05am [facility] [address] [place] [address] Discharge Summary Signed with Addenda Patient: Evelin Patterson MR#: [id number] : 1955 Acct:[id number] Age/Sex: 66 / M Adm Date: 2 Loc: Room: [address] [place] [address]: Luke Moran MD Copies to: [...] discharged home in stable condition to a care home facility. Medical therapy was adjusted as noted [...] 10:24: POC Glucose 271 04/03/22 07:34: Free Gladwin LC, Quant 93.9 H, Free Lambda LC, Quant 61.6 H, Free [place]win/Lambda Ratio 1.52 Exam Physical Exam Vital Signs: Temp Pulse Resp BP Pulse Ox O2 Del Method O2 Flow Rate 97.9 F 85 20 134/76 90 L Room Air 2 04/05/22 08:00 04/05/22 08:00 04/05/22 08:00 04/05/22 08:00 04/05/22 08:00 04/05/22 08:00 04/05/22 08:00 FiO2 30 04/04/22 22:34 Discharge Plan Discharge Plan Patient Disposition: [facility] Facility Activity: Ambulate as Tolerated Diet: Diabetic and Low-Sodium Additional Instructions: Please have company providing CPAP machine fit the patient with a mask that he can tolerate. Use a CPAP of 8 whenever asleep until the sleep study performed. [facility] Facility to manage care: - Full code [...] Instructions: Sliding Scale ACHS Other Ambulatory Orders: SOLUTION MANAGER polysom procedure (Routine) Timeframe: 3 Weeks Location: Determined by Patient Ordered By: Luke Moran Follow Up: [facility] Sleep Lab [Outside] ([facility] Sleep Lab or Central Scheduling will call you to arrange date/time for sleep study. ) Documented By: Luke Moran MD 04/07/22 0959 Signed By: <Electronically signed by Luke Moran MD> 04/07/22 1610 [facility] Work Phone: 1(395) 300-765908-27-2022 Progress note Author Luke Moran [facility] April 06, 2022 2:50pm Note Date/Time April 06, 2022 2: 50pm [facility] [address] [place] [address] Hospitalist Progress Note Signed Patient: Evelin Patterson MR#: [id number] : 1955 Acct:[id number] Age/Sex: 66 / M Adm Date: 2 Loc: Room: [address] [place] [address] Type: ADM INOo Attending Dr: Luke Moran [...] <Electronically signed by Luke Moran MD> 04/06/22 7362 [facility] Work Phone: 1(358) 332-201208-25-2022 Progress note Author Luke Moran [facility] April 04, 2022 4:25pm Note Date/Time April 04, 2022 4: 25pm [facility] [address] [place] [address] Hospitalist Progress Note Signed Patient: Evelin Patterson MR#: [id number] : 1955 Acct:[id number] Age/Sex: 66 / M Adm Date: 2 Loc: 3T Room: [address] [place] [address] Type: ADM INOo Attending Dr: Luke Moran [...] <Electronically signed by Luke Moran MD> 04/04/221624 [facility] Work Phone: 1(811) 174-295508-24-2022 Progress note Author Luke Moran [facility] April 03, 2022 2:05pm Note Date/Time April 03, 2022 2: 05pm [facility] [address] [place] [address] Hospitalist Progress Note Signed Patient: Evelin Patterson MR#: [id number] : 1955 Acct:[id number] Age/Sex: 66 / M Adm Date: 2 Loc: Room: [address] [place] [address] Type: ADM INOo Attending Dr: Luke Moran [...] Flush Documented By: Luke Moran MD 04/03/22 1400 Signed By: <Electronically signed by Luke Moran MD> 04/03/22 1406 [facility] Work Phone: 1(526) 785-849108-23-2022 History and physical note Author Luke Moran [facility] April 02, 2022 7:48pm Note Date/Time April 02, 2022 7: 45pm [facility] [address] [place] [address] Hospitalist H&P Signed Patient: Evelin Patterson MR#: [id number] : 1955 Acct:[id number] Age/Sex: 66 / M Adm Date: 2 Loc: ER Room: Type: [facility] ER Attending Dr: Copies to: MD Jair [...] type 2 Anxiety disorder Hypertension Atrial [facility] Vaccinated for COVID-19?: No Medical History [...] Type: None Social History Comments: [facility] Medications and Allergies Allergies metformin Adverse [...] % (Auto) 8.7 % (.) 04/02/22 17:51 [place] % (Auto) 12.2 % (.) 04/02/22 17:51 Eos % (Auto) 2.4 % (.) 04/02/22 17:51 Baso % (Auto) 0.6 % (.) 04/02/22 17:51 Neut # (Auto) 6.4 x10E3/uL (1.8-7.7) 04/02/22 17:51 Lymph # (Auto) 0.7 x10E3/uL (1.00-4.8) L 04/02/22 17:51 [place] # (Auto) 1.0 x10E3/uL (0.0-0.8) H 04/02/22 [...] <Electronically signed by Luke Moran MD> 04/02/221947 [facility] Work Phone: 1(721) 517-497908-06-2022 Discharge summary Author Xin Phan [facility] March 16, 2022 9:37am Note Date/Time March 16, 2022 9:3 7am [facility] [address] [place] [address] Discharge Summary Signed Patient: Evelin Patterson MR#: [id number] : 1955 Acct:[id number] Age/Sex: 66 / M Adm Date: 2 Loc: 3T Room: [address] [place] [address]: Xin Phan MD Copies to: [...] anxiety and depression who was transferred from [facility] for acute kidney injury.? Patient presented with generalized weakness and disorientation at [facility]. He was noted to have [...] headache or dizziness.? No fevers Paperwork from [facility] reviewed, chest x-ray with no acute cardiopulmonary process.? Sodium 129.? Potassium 3.3.? Creatinine 2.52.? WBC 6.8.? Hemoglobin 12.5.? Glucose 4.34.? Patient will be admitted by the hospitalist team for further evaluation and management. Patient was positive for COVID, patient was alert oriented x3 at [facility], patient states that he has been having [...] untreated sleep apnea Instructions: Blood Glucose Monitoring, [facility] COVID-19 Discharge Instructions Prescriptions: New Levemir FlexTouch [...] signed by Xin Phan MD> 03/16/22 0937 [facility] Work Phone: 1(142) 836-446008-05-2022 Progress note [facility] March 15, 2022 3:43pm Note Date/Time March 15, 2022 3:3 7pm [facility] [address] [place] [address] Nephrology Progress Note Signed Patient: Evelin Patterson MR#: [id number] : 1955 Acct:[id number] Age/Sex: 66 / M Adm Date: 2 Loc: Room: [address] [place] [address] Type: ADM IN Attending Dr: Xin Phan MD Copies to: ~ Date of Service: 03/15/2022 Subjective Subjective Narrative: This is 66-year-old male patient with a past medical history of morbid obesity, endocarditis, paroxysmal A. fib, diabetes type 2, anxiety and depression and chronic kidney disease stage III. Patient presented to [facility] with feeling weak and disoriented for 2 weeks which has gotten worse. Patient has been having cough with decreased appetite and loss of taste for a week. Lab at [facility] shows acute kidney injury with creatinine up to 4.3 mg/dL along with hyperglycemia with initial blood glucose level more than 400. Patient's blood pressure was in the 80s at [facility]. Patient was given IV fluid and [...] 500 Mg Tablet) 500 mg PO DAILY [facility] Stop: 03/14/23 08:59 Last Admin: 03/15/22 08:34 Dose: 500 mg Dexamethasone 2 mg/ (Dexamethasone 4 mg) 6 mg PO DAILY [facility] Stop: 03/22/23 08:59 Last Admin: 03/15/22 08:34 [...] 5,000 Unit/Ml Vial) 5,000 unit SUBCUT Q12HR [facility] Stop: 03/14/23 08:59 Last Admin: 03/15/22 08:34 Dose: 5,000 unit Sodium Chloride (0.9% Sodium Chloride 1,000 Ml) 1,000 mls @ 100 mls/hr IV .[id number] Stop: 03/14/23 01:59 Last Admin: 03/15/22 06:46 Dose: 100 mls/hr Insulin Aspart (Insulin Aspart 300 Units/3 Ml Insuln.Pen) 0 units SUBCUT TID.WM[facility]; Protocol Stop: 03/14/23 07:59 Last Admin: [...] question Documented By: Sarah Osuna MD 03/15/22 1538 Signed By: <Electronically signed by Sarah Osuna MD> 03/15/22 7142 [facility] Work Phone: 1(249) 175-589008-05-2022 Progress note Author Xin Phan [facility] March 15, 2022 12:44pm Note Date/Time March 15, 2022 12: 44pm [facility] [address] [place] [address] Hospitalist Progress Note Signed Patient: Evelin Patterson MR#: [id number] : 1955 Acct:[id number] Age/Sex: 66 / M Adm Date: 2 Loc: Room: [address] [place] [address] Type: ADM IN Attending Dr: Xin Phan MD Copies to: ~ Date of Service: 03/15/2022 Subjective Subjective Narrative: Patient is a 66-year-old male, with a PMHx of Morbid obesity, endocarditis in August of this year, atrial fibrillation, type 2 diabetes, hypertension, liver cirrhosis, anxiety and depression who was transferred from [facility] for acute kidney injury. Patient presented with generalized weakness and disorientation at [facility]. He was noted to have [...] headache or dizziness. No fevers Paperwork from [facility] reviewed, chest x-ray with no [...] secondary to poor oral intake. Presented at [facility] with low blood pressures in the 80s. ?Creatinine at [facility] 4.34. Baseline creatinine ~1.4 - [...] noncompliance to diabetic diet ?Blood sugar at [facility] was in the 400s ? [...] signed by Xin Phan MD> 03/15/22 1244 [facility] Work Phone: 1(563) 309-990508-04-2022 Progress note Author Renato Looney [facility] March 14, 2022 2:14pm Note Date/Time March 14, 2022 2:1 4pm [facility] [address] [place] [address] Progress Note Signed Patient: Evelin Patterson MR#: [id number] : 1955 Acct:[id number] Age/Sex: 66 / M Adm Date: 2 Loc: Room: [address] [place] [address] Type: ADM IN Attending Dr: Renato Looney MD Copies to: ~ Date of Service: 03/14/2022 Progress Narrative Note PROGRESS NOTE Progress Note: Patient seen and evaluated by attorney lawyer early this morning and also by myself. Briefly, patient is a 66-year-old male past medical history significant for obesity, atrial fibrillation, hypertension, diabetes, liver cirrhosis, mood disorder and recent endocarditis infection [facility] weakness found to have COVID-19 and acute kidney injury and was transferred to [facility] for further evaluation and management. 1. [...] signed by Renato Looney MD> 03/14/22 1414 [facility] Work Phone: 1(358) 587-374708-04-2022 Consult note Author Sarah Osuna [facility] March 14, 2022 12:30pm Note Date/Time March 14, 2022 12: 30pm [facility] [address] [place] [address] Nephrology Consult Note Signed Patient: Evelin Patterson MR#: [id number] : 1955 Acct:[id number] Age/Sex: 66 / M Adm Date: 2 Loc: 3T Room: [address] [place] [address] Type: ADM IN Attending Dr: Renato Looney [...] kidney disease stage III. Patient presented to [facility] with feeling weak and disoriented for 2 weeks which has gotten worse. Patient has been having cough with decreased appetite and loss of taste for a week. Lab at [facility] shows acute kidney injury with creatinine up to 4.3 mg/dL along with hyperglycemia with initial blood glucose level more than 400. Patient's blood pressure was in the 80s at [facility]. Patient was given IV fluid and [...] Type: None Social History Comments: [facility] in [facility] Medications & Allergies Allergies metformin Adverse [...] 500 Mg Tablet) 500 mg PO DAILY [facility] Stop: 03/14/23 08:59 Last Admin: 03/14/22 08:34 Dose: 500 mg Dexamethasone 2 mg/ (Dexamethasone 4 mg) 6 mg PO DAILY [facility] Stop: 03/22/23 08:59 Last Admin: 03/14/22 08:33 [...] 5,000 Unit/Ml Vial) 5,000 unit SUBCUT Q12HR [facility] Stop: 03/14/23 08:59 Last Admin: 03/14/22 08:39 Dose: 5,000 unit Sodium Chloride (0.9% Sodium Chloride 1,000 Ml) 1,000 mls @ 100 mls/hr IV .[id number] Stop: 03/14/23 01:59 Last Admin: 03/14/22 03:26 Dose: 100 mls/hr Insulin Aspart (Insulin Aspart 300 Units/3 Ml Insuln.Pen) 0 units SUBCUT TID.[facility]; Protocol Stop: 03/14/23 07:59 Last Admin: [...] M.D.03/14/2022 8:24 AM Dictation Location: [place] [address] Any impression(s) listed above is documentation that [...] signed by Sarah Osuna MD> 03/14/22 1230 [facility] Work Phone: [phone]) 354-357908-04-2022 History and physical note Author Mary Jane Riley [facility] March 14, 2022 6:40am Note Date/Time March 14, 2022 2:0 2am [facility] [address] [place] [address] Hospitalist H&P Signed Patient: Evelin Patterson MR#: [id number] : 1955 Acct:[id number] Age/Sex: 66 / M Adm Date: 2 Loc: Room: [address] [place] [address] Type: ADM IN Attending Dr: Mary Jane Hanna MD Copies to: MD Leah Marin APRN Marc Naderer, MD~ HPI DATE OF EXAMINATION: 03/14/22 CHIEF COMPLAINT: FRANC HISTORY OF PRESENT ILLNESS: Patient is a 66-year-old male, with a PMHx of Morbid obesity, endocarditis in August of this year, atrial fibrillation, type 2 diabetes, hypertension, liver cirrhosis, anxiety and depression who was transferred from [facility] for acute kidney injury. Patient presented with generalized weakness and disorientation at [facility]. He was noted to have [...] headache or dizziness. No fevers Paperwork from [facility] reviewed, chest x-ray with no acute cardiopulmonary process. Sodium 129. Potassium 3.3. Creatinine 2.52. WBC 6.8. Hemoglobin 12.5. Glucose 4.34. Patient will be admitted by the hospitalist team for further evaluation and management. Review of Systems Review of Systems Review of systems: 10 point review of systems obtained, negative unless noted in the HPI or below [facility] Medical History Abdominal mass Anxiety Arthritis Back pain Cirrhosis Colonoscopy planned Deviated nasal septum Diabetes mellitus, type 2 Eczema History of left heart catheterization Pneumonia Surgical History History of cholecystectomy History of hydrocelectomy History of lithotripsy History of nasal surgery Family History Mother Cancer Social History Smoking Status: Never smoker Substance Use Type: None Social History Comments: Lives in [facility] Medications and Allergies Allergies metformin Adverse [...] secondary to poor oral intake. Presented at [facility] with low blood pressures in the 80s. ?Creatinine at [facility] 4.34. Baseline creatinine ~1.4 ?Urine sodium, creatinine, urea pending ? Urine output monitoring ? Start IV fluids ? Hold home lisinopril and renally adjust medications ?Consider renal ultrasound if no improvement ? Nephrology consult ?Monitor BMP COVID-19 positive -unvaccinated. ? Presented with productive cough, hypoxia, loss of taste and generalized weakness ? Afebrile, no leukocytosis ? Chest x-ray from [facility] did not show any acute [...] the plan of care and confirmed the resident's/international freight forwarder/medical student's dictation/written note. Patient is a 66-year-old [...] by Mary Jane Hanna MD> 03/14/22 0640 [facility] Work Phone: [phone]) 479-600404-19-2022 Progress note Author Lupe Hernandez [facility] April 09, 2022 3:32pm Note Date/Time April 09, 2022 1: 08pm [facility] [address] [place] [address] Hospitalist Progress Note Signed with Addenda Patient: Evelin Patterson MR#: [id number] : 1955 Acct:[id number] Age/Sex: 66 / M Adm Date: 2 Loc: Room: [address] [place] [address] Type: DIS INOo Attending Dr: Lupe Hernandez MD Copies to: ~ ADDENDUM1 Patient was personally seen by me on the day of encounter, reviewed his history and performed long elements of exam and formulated the plan of care and confirmedthe residents note below. Unfortunately patient has been denied by insurance for care home facility after peer to peer. He will [...] to thrive, paroxysmal A. fib, CKD 3, emm-yykqkgh-gslarnrsc diabetes, CHF is being monitored on the floor while a vhlw-uk-vtca was had with regards to the patient's discharge to a care home facility. Insurance company has denied this coverage [...] agreed the patient would do well at care home facility. Documented By: Allen Perez DO, TAMMIE 2 1302 Signed By: <Electronically signed by RES Allen Perez> 04/09/22 1308 <Electronically signed by Lupe Hernandez MD> 04/09/22 1531 [facility] Work Phone: Discharge summary Author Luke Moran [facility] April 07, 2022 4:16pm Note Date/Time April 05, 2022 10 :05am [facility] [address] [place] [address] Discharge Summary Signed with Addenda Patient: Evelin Patterson MR#: [id number] : 1955 Acct:[id number] Age/Sex: 66 / M Adm Date: 2 Loc: Room: [address] [place] [address]: Luke Moran MD Copies to: [...] discharged home in stable condition to a care home facility. Medical therapy was adjusted as noted [...] 10:24: POC Glucose 271 04/03/22 07:34: Free Gladwin LC, Quant 93.9 H, Free Lambda LC, Quant 61.6 H, Free Gladwin/Lambda Ratio 1.52 Exam Physical Exam Vital Signs: Temp Pulse Resp BP Pulse Ox O2 Del Method O2 Flow Rate 97.9 F 85 20 134/76 90 L Room Air 2 04/05/22 08:00 04/05/22 08:00 04/05/22 08:00 04/05/22 08:00 04/05/22 08:00 04/05/22 08:00 04/05/22 08:00 FiO2 30 04/04/22 22:34 Discharge Plan Discharge Plan Patient Disposition: [facility] Facility Activity: Ambulate as Tolerated Diet: Diabetic and Low-Sodium Additional Instructions: Please have company providing CPAP machine fit the patient with a mask that he can tolerate. Use a CPAP of 8 whenever asleep until the sleep study performed. [facility] Facility to manage care: - Full code [...] Instructions: Sliding Scale ACHS Other Ambulatory Orders: SOLUTION MANAGER polysom procedure (Routine) Timeframe: 3 Weeks Location: Determined by Patient Ordered By: Luke Moran Follow Up: [facility] Sleep Lab [Outside] ([facility] Sleep Lab or Central Scheduling will call you to arrange date/time for sleep study. ) Documented By: Luke Moran MD 04/07/22 0912 Signed By: <Electronically signed by Luke Moran MD> 04/07/22 1610 [facility] Work Phone: Evaluation + Plan note No data available for this section [facility] Evaluation note* Diagnosis Onset Date [...] Unable to care for self acut e [facility] Work Phone: Evaluation note* Diagnosis Hypotension, unspecified hypotension type- Primary Fall, initial encounter Refusal of treatment Surgical or other procedure not carried out because of patient's decision documented in this encounter [facility] information [facility] [place] Work Phone: Hospital Discharge instructions No data available for this section [facility] Hospital Discharge instructionsAmbulatory Orders* Initiate Home Health Time Frame: 04/09/22, Location: Determined By Patient Additional Instructions Please wear home oxygen at 2l at all times. HOME HEALTH TO MANAGE: Nursing/PT/OT/Aide/Railcar Mechanic to eval and treat Monitor VS per protocol Maintain home oxygen at 2l continuous *Oxygen therapy is new, educate patient on Monitor Respiratory assessment Assist with medication management and provide medication education Assist with glucose control Skin care TID: *Theraworx protect to bilateral groin and abdominal fold redness. *Educate patient on Provide education on high risk fall precautions [facility] Work Phone: Hospital Discharge instructions Additional Instructions If your symptoms return/worsen or you develop any further concerns or symptoms please see your doctor or return to the emergency department immediately.[facility] Work Phone: Progress note No data available for this section [facility] Progress note Author Sarah Osuna [facility] March 16, 2022 12:40pm Note Date/Time March 16, 2022 12: 36pm [facility] [address] [place] [address] Nephrology Progress Note Signed Patient: Evelin Patterson MR#: [id number] : 1955 Acct:[id number] Age/Sex: 66 / M Adm Date: 2 Loc: 3T Room: [address] [place] [address] Type: ADM IN Attending Dr: Xin Phan MD Copies to: ~ Date of Service: 03/16/2022 Subjective Subjective Narrative: This is 66-year-old male patient with a past medical history of morbid obesity, endocarditis, paroxysmal A. fib, diabetes type 2, anxiety and depression and chronic kidney disease stage III. Patient presented to [facility] with feeling weak and disoriented for 2 weeks which has gotten worse. Patient has been having cough with decreased appetite and loss of taste for a week. Lab at [facility] shows acute kidney injury with creatinine up to 4.3 mg/dL along with hyperglycemia with initial blood glucose level more than 400. Patient's blood pressure was in the 80s at [facility]. Patient was given IV fluid and [...] Units/3 Ml Insuln.Pen) 0 units SUBCUT TID.WM.[facility]; Protocol Stop: 03/14/23 07:59 Last Admin: 03/16/22 11:57 Dose: 8 units Insulin Detemir (Insulin Detemir 300 Units/3 Ml Insuln.Pen) 40 units SUBCUT DAILY.WITH.[facility] Stop: 03/16/23 07:59 Last Admin: 03/16/22 08:10 Dose: 40 units Zinc Sulfate (Zinc Sulfate 220 Mg Capsule) 220 mg PO DAILY [facility] Stop: 03/14/23 08:59 Last Admin: 03/16/22 08:08 [...] signed by Sarah Osuna MD> 03/16/22 1240 [facility] Work Phone: Progress note Author Luke Moran [facility] April 03, 2022 2:05pm Note Date/Time April 03, 2022 2: 05pm [facility] [address] [place] [address] Hospitalist Progress Note Signed Patient: Evelin Patterson MR#: [id number] : 1955 Acct:[id number] Age/Sex: 66 / M Adm Date: 2 Loc: Room: [address] [place] [address] Type: ADM INOo Attending Dr: Luke Moran [...] signed by Luke Moran MD> 04/03/22 1405 [facility] Work Phone: Progress note Author Luke Moran [facility] April 04, 2022 4:25pm Note Date/Time April 04, 2022 4: 25pm [facility] [address] [place] [address] Hospitalist Progress Note Signed Patient: Evelin Patterson MR#: [id number] : 1955 Acct:[id number] Age/Sex: 66 / M Adm Date: 2 Loc: Room: [address] [place] [address] Type: ADM INOo Attending Dr: Luke Moran [...] Flush Documented By: Luke Moran MD 04/04/22 2360 Signed By: <Electronically signed by Luke Moran MD> 04/04/22 1625 [facility] Work Phone: Progress note Author Luke Moran [facility] April 06, 2022 2:50pm Note Date/Time April 06, 2022 2: 50pm [facility] [address] [place] [address] Hospitalist Progress Note Signed Patient: Evelin Patterson MR#: [id number] : 1955 Acct:[id number] Age/Sex: 66 / M Adm Date: 2 Loc: 3T Room: [address] [place] [address] Type: ADM INOo Attending Dr: Luke Moran [...] <Electronically signed by Luke Moran MD> 04/06/22 2410 [facility] Work Phone: Progress note Author Lupe Hernandez [facility] April 08, 2022 1:38pm Note Date/Time April 08, 2022 1: 38pm [facility] [address] [place] [address] Hospitalist Progress Note Signed Patient: Evelin Patterson MR#: [id number] : 1955 Acct:[id number] Age/Sex: 66 / M Adm Date: 2 Loc: 3T Room: [address] [place] [address] Type: ADM INOo Attending Dr: Lupe Hernandez [...] Hypothyroidism: Plan Patient currently awaiting placement to care home facility. Remains in normal sinus rhythm. He [...] signed by Lupe Hernandez MD> 04/08/22 1338 [facility] Work Phone: Chief Complaint and [...] and content) DATE CREATED AUTHOR 05/08/2022 [facility] DATE CREATED AUTHOR AUTHOR'S ORGANIZ ATION 12/23/2022 [facility] DATE CREATED AUTHOR AUTHOR'S ORGANIZ ATION 04/12/2023 [facility] DATE CREATED AUTHOR AUTHOR'S ORGANIZ ATION 09/17/2023 [facility] DATE CREATED AUTHOR AUTHOR'S ORGANIZ ATION 03/16/2024 [facility] Reason for Visit (unrecogniz ed section and [...] BE BASED ON THE PRIMARY CLINICAL RECORDS. [facility] [employer] [facility]. provides no warranty or guarantee of the accuracy or completeness of information in this document.
--- NOTE | 2024-04-02 12:41 | CT_ITS ---
[address] [address] Patient Name: EVELIN CAMACHO MRN: [id number] date: 1955 Sex: M Assigned Patient Location: CT Current Patient Location: CT Accession/Order Number: [id number] Exam Date: 04/02/2024 13:20 Report Date: 04/05/2024 15:37 At the request of: DANIS ISBELL Procedure: CT abdomen pelvis w con EXAMINATION: CT abdomen pelvis w con HISTORY: Gastroenteritis K52.9. Gastroenteritis K52.9. COMPARISON: CT abdomen and pelvis 02/18/2024 and 07/16/2023. TECHNIQUE: Following uneventful administration of oral and IV contrast, helical imaging of the abdomen and pelvis was performed. Multiplanar reformatted images are submitted. Dose reduction techniques were achieved by using: automated exposure control and/or adjustment of mA and /or kV according to patient size and/or use of iterative reconstruction technique. FINDINGS: ABDOMEN: LOWER CHEST: The imaged lung bases are clear. SOLID ORGANS: Hepatomegaly and cirrhosis, stable. No hepatic masses. Prior cholecystectomy. Hepatic vessels are patent. No focal hepatic lesion. Spleen, adrenal glands, pancreas and biliary ducts are all within normal limits. Left superior pole 1.4 x 1.3 cm renal cyst. (Image 50, series 3) is stable. Kidneys are within normal limits. No urinary tract calculi. No hydronephrosis. BOWEL: The stomach, proximal small bowel and imaged colon are normal in course and caliber. No bowel wall thickening. MESENTERY AND RETROPERITONEUM: There is no free fluid, fluid collection or adenopathy.. Abdominal aorta and IVC are intact. Aortic caliber is normal. 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 ABDOMINAL WALL AND SOFT TISSUES: No acute abnormality. OSSEOUS STRUCTURES: No acute osseous abnormality. PELVIS: [] GENITOURINARY: The distal ureters, urinary bladder, imaged urethra, prostate, seminal vesicles are all within normal limits. No distal urinary tract calculi. BOWEL: Distal small bowel, rectosigmoid colon, appendix are intact. No bowel wall thickening. MESENTERY: There is no free fluid, fluid collection or adenopathy. VASCULATURE: Pelvic vasculature is patent. ABDOMINAL WALL AND SOFT TISSUES: No acute abnormality. OSSEOUS STRUCTURES: No acute osseous abnormality. CT/CT abdomen pelvis w con IMPRESSION: 1. No acute abdominal or pelvic inflammatory process. 2. Stable hepatomegaly and cirrhosis with patent vessels and prominent upper abdominal varices. 3. No adenopathy. Normal appendix. Electronically authenticated by: ZULEYKA GARCIA Date: 04/05/2024 15:37
== END 2024-04-02 12:06 | disposition home or self-care (01) ==
LOC: CT 12:05
PROVIDERS: PCP Nurse Practitioner Family; Visit Provider Family Medicine
DX: K52.9 Noninfective gastroenteritis and colitis, unspecified (principal); R16.0 Hepatomegaly, not elsewhere classified
CPT/HCPCS: 74177; Q9967

== ENCOUNTER 2024-04-14 13:29 | Emergency (ER) | payer MEDICARE, MEDICAID, SELFPAY ==
[2024-04-14 13:33] VITALS: BP 152/96; PULSE 96; TEMP 38.1; O2SAT 98; BMI 45.6
--- NOTE | 2024-04-14 13:52 | ED_ITS ---
HPI HPI - General Adult General Chief complaint: Skin/Abscess/Foreign Body Stated complaint: WOUND CHECK Time Seen by Provider: 04/14/24 13:35 Source: patient Mode of arrival: walk-in Limitations: no limitations History of Present Illness HPI narrative: Patient is a 68-year-old male with a history of diabetes who presents to the emergency department for a red swollen and draining area to the left wrist. He states there has been a red and swollen area for the last 2 to 3 weeks to the dorsum of the left wrist. He states he initially believed that it was a wart or that he scratched his wrist. In the last several days the area has been more raised and today it opened and started draining purulence. Patient arrives to the ER with a temperature of 100.6 Fahrenheit. He states he was unaware that he had a temperature, he feels otherwise well with no objective fevers at home, no nausea or vomiting. He has not been evaluated for this previously, he does not believe he has been on any recent antibiotics. Related Data Home Medications ?Medication ?Instructions ?Recorded ?Confirmed atorvastatin 40 mg tablet 40 mg PO BEDTIME 07/16/23 04/14/24 esomeprazole magnesium 40 mg 40 mg PO Q24H 07/16/23 04/14/24 capsule,delayed release gabapentin 100 mg capsule 100 mg PO BID 07/16/23 04/14/24 hydroxyzine HCl 25 mg tablet 25 mg PO QID PRN nausea and 07/16/23 04/14/24 vomiting insulin glargine 100 unit/mL (3 40 unit subcut DAILY 07/16/23 04/14/24 mL) subcutaneous pen (Lantus Solostar U-100 Insulin) isosorbide mononitrate 30 mg 30 mg PO DAILY 07/16/23 04/14/24 tablet,extended release 24 hr levothyroxine 200 mcg tablet 200 mcg PO DAILY 07/16/23 04/14/24 liothyronine 5 mcg tablet 5 mcg PO DAILY 07/16/23 04/14/24 ropinirole 0.5 mg tablet 0.5 mg PO BEDTIME 07/16/23 04/14/24 sertraline 100 mg tablet 100 mg PO DAILY 07/16/23 04/14/24 apixaban 5 mg tablet (Eliquis) 5 mg PO DAILY 04/14/24 04/14/24 diclofenac sodium 75 mg 75 mg PO Q12H PRN pain 04/14/24 04/14/24 tablet,delayed release nystatin 100,000 unit/gram topical 1 applic topical QDAY 04/14/24 04/14/24 cream oxycodone-acetaminophen 5 mg-325 1 tab PO QDAY PRN pain 04/14/24 04/14/24 mg tablet (Percocet) trazodone 50 mg tablet 50 mg PO .qhs PRN insomnia 04/14/24 04/14/24 Previous Rx's ?Medication ?Instructions ?Recorded promethazine-DM 6.25 mg-15 mg/5 mL 5 ml PO Q8H PRN cough 3 days #118 07/20/23 oral syrup mL lisinopril 20 mg tablet 20 mg PO QD #30 tabs 02/23/24 cephalexin 500 mg capsule 500 mg PO Q8H 10 days #30 caps 04/14/24 sulfamethoxazole 800 1 tab PO BID 10 days #20 tabs 04/14/24 mg-trimethoprim 160 mg tablet (Bactrim DS) Allergies Allergy/AdvReac Type Severity Reaction Status Date / Time metformin AdvReac Severe Flatulence Verified 04/14/24 13:33 prochlorperazine AdvReac Severe Anxiety Verified 04/14/24 13:33 [From Compazine] Opioid HPI Opioid Management Most Recent Opioid Data: Last Pain Scale 7 03/25/24 17:45 Last MAR Pain Assessment 04/14/24 14:03 Last ORT Total Score 1 02/18/24 22:54 Last ORT Risk Category Low Risk 02/18/24 22:54 Review of Systems ROS Constitutional Reports: fever; Denies: chills Ears, nose, mouth, and throat Denies: throat pain or nasal congestion Respiratory Denies: shortness of breath or cough Gastrointestinal Denies: nausea or vomiting Integumentary/Breast Reports: redness, skin pain, skin tenderness and skin swelling; Denies: rash Hematologic/Lymphatic Denies: easy bruising or easy bleeding [facility] Medical History Neuropathy ?G62.9 - Polyneuropathy, unspecified (ICD-10) GERD (gastroesophageal reflux disease) ?K21.9 - Gastro-esophageal reflux disease without esophagitis (ICD-10) UTI (urinary tract infection) ?N39.0 - Urinary tract infection, site not specified (ICD-10) Sepsis ?A41.9 - Sepsis, unspecified organism (ICD-10) Fibromyalgia ?M79.7 - Fibromyalgia (ICD-10) Hyperlipidemia ?E78.5 - Hyperlipidemia, unspecified (ICD-10) Hypothyroid ?E03.9 - Hypothyroidism, unspecified (ICD-10) Depression ?F32.A - Depression, unspecified (ICD-10) Anxiety ?F41.9 - Anxiety disorder, unspecified (ICD-10) Hypertension ?I10 - Essential (primary) hypertension (ICD-10) Diabetes ?E11.9 - Type 2 diabetes mellitus without complications (ICD-10) Surgical History H/O right heart catheterization ?Z98.890 - Other specified postprocedural states (ICD-10) History of lithotripsy ?Z98.890 - Other specified postprocedural states (ICD-10) H/O colonoscopy ?Z98.890 - Other specified postprocedural states (ICD-10) Family History Mother Family history of cancer Social History Within the past year, how often did you have a drink containing alcohol: never Within the past year, how many standard drinks containing alcohol did you have on a typical day: 1 or 2 Within the past year, how often did you have six or more drinks on one occasion: never Total score: 0 Score interpretation: A score less than 4 is consistent with normal alcohol consumption. Smoking status: Never smoker Non-prescribed substance use: denies use Previous occupational history: disability Highest level of school completed/degree received: high school graduate Are you now , , , , never or living with a partner: In a typical week, how many times do you talk on the telephone with family, friends, or neighbors: twice per week How often do you get together with friends or relatives: twice per week How often do you attend christian or christianity services: 4 or more times per year Do you belong to any clubs or organizations such as christian groups unions, fraternal or athletic groups, or school groups: no Total score: 2 Score interpretation: A score of greater than or equal to 2 indicates the lowest level of social isolation. Little interest or pleasure in doing things: not at all Feeling down, depressed, or hopeless: several days Feel stressed/tense/nervous/anxious/difficulty sleeping: not at all Gender Identity: male Exam Narrative Exam Narrative: Gen.: Awake, alert, in no distress Head: Normocephalic, atraumatic ENT: Moist mucous membranes Respiratory: No respiratory distress Extremities: Moves extremities equally, 5 cm area of blanching erythema to the dorsum of the left wrist with a 1.5 central fluctuant raised area. Normal flexion and extension at the left wrist with 2+ left radial pulse. No circumferential erythema. The central fluctuant area is open and draining purulent material that is easily expressed Psych: Normal mood and affect Neuro: No focal neuro deficit Skin: Warm, dry, intact Constitutional Vital Signs, click to edit/add: Last Vital Signs Temp 100.6 F H 04/14/24 13:33 Pulse 96 H 04/14/24 13:33 Resp 16 04/14/24 13:33 BP 152/96 H 04/14/24 13:33 Pulse Ox 98 04/14/24 13:33 O2 Del Method Room Air 04/14/24 13:33 Course Vital Signs Vital signs: Vital Signs Temperature 100.6 F H 04/14/24 13:33 Pulse Rate 96 H 04/14/24 13:33 Respiratory Rate 16 04/14/24 13:33 Blood Pressure 152/96 H 04/14/24 13:33 Pulse Oximetry 98 04/14/24 13:33 Oxygen Delivery Method Room Air 04/14/24 13:33 Temperature 100.6 F H 04/14/24 13:33 Pulse Rate 96 H 04/14/24 13:33 Respiratory Rate 16 04/14/24 13:33 Blood Pressure 152/96 H 04/14/24 13:33 Pulse Oximetry 98 04/14/24 13:33 Oxygen Delivery Method Room Air 04/14/24 13:33 Medical Decision Making MDM Narrative Medical decision making narrative: Labs show normal white blood cell count, minimally elevated lactic acid. Ella nt was treated for temperature in the ER with Tylenol and repeat temperature is 99.6. He has no other constitutional symptoms of vomiting, chills or bodyaches. He is kidney function is stable. He is treated with Bactrim and Keflex for treatment of the abscess that appears to be a superficial cutaneous abscess to the dorsum of the left wrist. Wound culture was obtained. Apply warm compresses. The area is open and draining and does not require incision and drainage at this time. Follow-up closely with PCP. Sterile dressing applied and the patient remains neurovascularly intact. Return to the ER if symptoms change or worsen SUPERVISED APC VISIT, PHYSICIAN ATTESTATION: Based on the medical record the care appears appropriate. ? Medical Records Medical records reviewed: Yes I reviewed the patient's medical records Lab Data Lab results reviewed: Yes I reviewed the patient's lab results Labs: Lab Results 04/14/24 Range/Units 14:00 WBC 6.6 (4.0-11.0) 10^3/uL RBC 4.02 L (4.70-6.10) 10^6/uL Hgb 11.7 L (14.0-18.0) g/dL Hct 36.2 L (42.0-54.0) % MCV 90.0 (80.0-94.0) fL MCH 29.1 (25.9-34.0) pg MCHC 32.3 (29.9-35.2) g/dL RDW 16.0 H (11.0-15.0) % Plt Count 185 (150-450) 10^3/uL MPV 11.3 (9.5-13.5) fL Neut % (Auto) 56.8 (43.0-75.0) % Lymph % (Auto) 25.8 (20.5-60.0) % [place] % (Auto) 8.2 (1.7-12.0) % Eos % (Auto) 7.4 H (0.9-7.0) % Baso % (Auto) 1.5 (0.2-2.0) % Neut # (Auto) 3.8 (1.4-6.5) 10^3/uL Lymph # (Auto) 1.7 (1.2-3.8) 10^3/uL [place] # (Auto) 0.5 (0.3-0.8) 10^3/uL Eos # (Auto) 0.5 (0.0-0.7) 10^3/uL Baso # (Auto) 0.1 (0.0-0.1) 10^3/uL Abs Immat Gran (auto) 0.02 (0.00-0.03) 10^3/uL Imm/Tot Granulo (auto) 0.3 (0.0-0.5) % ESR 123 H (<=20) mm/hr Sodium 136 (136-145) mmol/L Potassium 3.3 L (3.5-5.1) mmol/L Chloride 101 (98-107) mmol/L Carbon Dioxide 26.4 (21.0-32.0) mmol/L Anion Gap 11.9 BUN 17.0 (7.0-18.0) mg/dL Creatinine 1.37 H (0.70-1.30) mg/dL Est GFR ( Amer) >60 (>=60) Est GFR (Non-Af Amer) 52 L (>=60) BUN/Creatinine Ratio 12.4 Glucose 230 H (74-106) mg/dL Lactate 2.1 H (0.4-2.0) mmol/L Calcium 8.6 (8.5-10.1) mg/dL C-Reactive Protein 0.75 H (<=0.50) mg/dL Discharge Plan Discharge Chief Complaint: Skin/Abscess/Foreign Body Clinical Impression: Abscess of skin of left wrist Patient Disposition: Home, Self-Care Time of Disposition Decision: 14:47 Condition: Good Prescriptions / Home Meds: New sulfamethoxazole-trimethoprim [Bactrim DS] 800-160 mg tablet 1 tab PO BID 10 Days Qty: 20 0RF cephalexin 500 mg capsule 500 mg PO Q8H 10 Days Qty: 30 0RF No Action atorvastatin 40 mg tablet 40 mg PO BEDTIME esomeprazole magnesium 40 mg capsule,delayed release(DR/EC) 40 mg PO Q24H gabapentin 100 mg capsule 100 mg PO BID hydroxyzine HCl 25 mg tablet 25 mg PO QID PRN (Reason: nausea and vomiting) insulin glargine [Lantus Solostar U-100 Insulin] 100 unit/mL (3 mL) insulin pen 40 unit SUBCUT DAILY isosorbide mononitrate 30 mg tablet extended release 24 hr 30 mg PO DAILY levothyroxine 200 mcg tablet 200 mcg PO DAILY liothyronine 5 mcg tablet 5 mcg PO DAILY sertraline 100 mg tablet 100 mg PO DAILY ropinirole 0.5 mg tablet 0.5 mg PO BEDTIME promethazine-DM 6.25-15 mg/5 mL syrup 5 ml PO Q8H PRN (Reason: cough) 3 Days Qty: 118 0RF lisinopril 20 mg Tablet 20 mg PO QD Qty: 30 11RF diclofenac sodium 75 mg tablet,delayed release (DR/EC) 75 mg PO Q12H PRN (Reason: pain) trazodone 50 mg tablet 50 mg PO .qhs PRN (Reason: insomnia) nystatin 100,000 unit/gram cream 1 applic TOPICAL QDAY oxycodone-acetaminophen [Percocet] 5-325 mg tablet 1 tab PO QDAY PRN (Reason: pain) Eliquis 5 mg Tablet 5 mg PO DAILY Print Language: Uzbek Instructions: Abscess (ED) Referrals: KATHIA LAZAR [Primary Care Provider] - 1 week
[2024-04-14] MEDS: ACETAMINOPHEN 500 MG TABLET 1000 MG PO (14:03)
--- OUTSIDE RECORDS SUMMARY | 2024-04-14 14:08 | XMS_ITS | CCD ---
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 Role Phone JEFF CARLOS Primary Care Physician [phone] MD Ayden Freeman Primary Care Provider [phone] Al MD Mary Jane Campbell Admit Provider MD Syed Osunaiz Other Provider MD Xin Phan Attending Provider DO Jair Gabriel Emergency Provider [phone] MD Luke Moran Admit Provider [phone] MD Lupe Hernandez Attending Provider DO Ramesh [...] sources) metFORMIN; Translations: [metformin] Drug Allergy 2 [facility] (6 sources) Prochlorperazine; Translations: [prochlorperazine] Drug Allergy 2 [facility] (2 sources) Prochlorperazine Drug Allergy [facility] Medications Current Medications Medication Drug Class(es) [...] PO Q6H 0 April 04, 2022 12:00am [id number] 200 actuat albuterol 0.09 mg/actuat metered dose [...] by mouth four times daily Hydrocodone-Aceta minophen ([place]) 5-325 mg Tablet Discontinued 1 TAB PO [...] 09, 2022 12:27pm Sliding Scale ACHS nystatin [id number] unt/ml oral suspension (10 sources) Polyene Antifungal [...] disease (1 source) Atherosclerotic heart disease of [place] coronary artery without angina pectoris; Translations: [ASHD [place] W/O ANGINA PECTORIS] Onset: 05-20-2022 Chronic [...] 05-29-2022 Chronic Other aftercare (1 source) Other jail (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; Translations: [OTH RESIDENTIAL CURRENT DRUG THERAPY] Onset: 12-22-2022 Episodic Other [...] Onset: 01-28-2022 Episodic Other aftercare (1 source) 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 It is important that you return our call regarding scheduling a consultation at our office upon receiving this letter. Also, at the time of your call, please provide us with your current information. Thank you for your prompt attention to this matter. Sincerely, [facility] [phone] [facility] Provider Letter Provider Letter April 09, 20[address] [address] : 1955 Dear Evelin , We have been trying to reach you with no success. It is important that you return our call regarding your _ upon receiving this letter. Also, at the time of your call, please provide us with your current information. Thank you for your prompt attention to this matter. Sincerely, [facility] [phone] [facility] Provider Letteron 03-15-2024 Provider Letter Provider Letter March 15, 2024 EVELIN TOSCANOMAN Sharee [address] [address] : 1955 Dear Evelin , We have been trying to reach you with no success. It is important that you return our call regarding a referral upon receiving this letter. Also, at the time of your call, please provide us with your current information. Thank you for your prompt attention to this matter. Sincerely, Dr. Javid Haynes MD General Surgery [facility] CBC AUTO DIFFon 12-19-2022 BASO # 0.1 103/ul Normal 0.0-0.1 [facility] Comment on above: Performed By: #### T STEFF BMP #### [facility] [address] [address] [address] Ladan Diehl Basophils/100 WBC (Bld) 1.2 % Normal 0.2-2.0 [facility] Comment on above: Performed By: #### T STEFF BMP #### [facility] [address] [address] [address] Ladan Diehl EO # 0.4 103/ul Normal 0.0-0.7 [facility] Comment on above: Performed By: #### T SH, BMP #### [facility] [address] [place] [address] Dr. Ladan Diehl Eosinophils/100 WBC (Bld) 4.9 % Normal 0.9-7.0 [facility] Comment on above: Performed By: #### T SH, BMP #### [facility] [address] [place] [address] Dr. Ladan Diehl Erythrocyte distribution width (RBC) [Ratio] 14.8 % Normal 11.0-15.0 [facility] Comment on above: Performed By: #### T SH, BMP #### [facility] [address] [place] [address] Dr. Ladan Diehl Hematocrit (Bld) [Volume fraction] 36.7 % Critically low 42.0-54.0 [facility] Comment on above: Performed By: #### T SH, BMP #### [facility] [address] [place] [address] Dr. Ladan Diehl Hemoglobin (Bld) [Mass/Vol] 12.0 g/dL Critically low 14.0-18.0 [facility] Comment on above: Performed By: #### T SH, BMP #### [facility] [address] [place] [address] Dr. Ladan Diehl IG # 0.01 10e3/ul Normal 0.00-0.03 [facility] Comment on above: Performed By: #### T SH, BMP #### [facility] [address] [place] [address] Dr. Ladan Diehl IG % 0.1 % Normal 0.0-0.5 [facility] Comment on above: Performed By: #### T SH, BMP #### [facility] [address] [place] [address] Dr. Ladan Diehl LYMPH # 2.0 103/ul Normal 1.2-3.8 [facility] Comment on above: Performed By: #### T SH, BMP #### [facility] [address] [place] [address] Dr. Ladan Diehl Lymphocytes/100 WBC (Bld) 27.1 % Normal 20.5-60.0 [facility] Comment on above: Performed By: #### T SH, BMP #### [facility] [address] [place] [address] Dr. Ladan Diehl MANUAL DIFF REQ NO Normal [facility] Comment on above: Performed By: #### T SH, BMP #### [facility] [address] [place] [address] Dr. Ladan Diehl MCH (RBC) [Entitic mass] 29.6 pg Normal 25.9-34.0 [facility] Comment on above: Performed By: #### T SH, BMP #### [facility] [address] [place] [address] Dr. Ladan Diehl MCHC (RBC) [Mass/Vol] 32.7 g/dL Normal 29.9-35.2 [facility] Comment on above: Performed By: #### T SH, BMP #### [facility] [address] [place] [address] Dr. Ladan Diehl MCV (RBC) [Entitic vol] 90.6 fL Normal 80.0-94.0 [facility] Comment on above: Performed By: #### T SH, BMP #### [facility] [address] [place] [address] Dr. Ladan Diehl MONO # 0.8 103/ul Normal 0.3-0.8 [facility] Comment on above: Performed By: #### T SH, BMP #### [facility] [address] [place] [address] Dr. Ladan Diehl Monocytes/100 WBC (Bld) 10.4 % Normal 1.7-12.0 [facility] Comment on above: Performed By: #### T SH, BMP #### [facility] [address] [place] [address] Dr. Ladan Diehl NEUT # 4.2 103/ul Normal 1.4-6.5 [facility] Comment on above: Performed By: #### T SH, BMP #### [facility] [address] [address] [address] Ladan Diehl Neutrophils/100 WBC (Bld) 56.3 % Normal 43.0-75.0 [facility] Comment on above: Performed By: #### T SH, BMP #### [facility] [address] [address] [address] Ladan Diehl Platelet mean volume (Bld) [Entitic vol] 9.9 fL Normal 9.5-13.5 [facility] Comment on above: Performed By: #### T SH, BMP #### [facility] [address] [address] [address] Ladan Diehl PLT 227 103/ul Normal 150-450 [facility] Comment on above: Performed By: #### T SH, BMP #### [facility] [address] [place] [address] Dr. Ladan Diehl RBC 4.05 106/ul Critically low 4.70-6.10 [facility] Comment on above: Performed By: #### T SH, BMP #### [facility] [address] [place] [address] Dr. Ladan Diehl WBC 7.4 103/ul Normal 4.0-11.0 [facility] Comment on above: Performed By: #### T SH, BMP #### [facility] [address] [place] [address] Dr. Ladan Diehl FREE T3on 12-19-2022 FREE T3 2.07 pg/mlL Critically low 2.18-3.98 [facility] Comment on above: Performed By: #### T SH, BMP #### [facility] [address] [place] [address] Dr. Ladan Diehl FREE T4on 12-19-2022 Free T4 [Mass/Vol] 1.14 ng/dL Normal 0.76-1.46 [facility] Comment on above: Performed By: #### T SH, BMP #### [facility] [address] [place] [address] Dr. Ladan Diehl GLYCOHEMOGLOBIN A1Con 2022 ADA RECOMMENDATION SEE BELOW Normal [facility] Comment on above: Result Comment: ADA RECOMMENDED LIMIT 4.0 - 6.0 ADA THERAPEUTIC TARGET < 7.0 ACTION SUGGESTED > 7.0 Performed By: #### T SH, BMP #### [facility] [address] [place] [address] Dr. Ladan Diehl Glucose [Mass/Vol] 134 mg/dL Normal [facility] Comment on above: Performed By: #### T SH, BMP #### [facility] [address] [place] [address] Dr. Ladan Diehl HbA1c (Bld) [Mass fraction] 6.3 % Critically high 4.5-6.2 [facility] Comment on above: Performed By: #### T SH, BMP #### [facility] [address] [place] [address] Dr. Ladan Diehl LIPID PROFILEon 12-19-2022 CHOL-HDL RATIO NORM SEE BELOW Normal [facility] Comment on above: Result Comment: 3.3 - 4.4 LOW RISK 4.4 - 7.1 AVERAGE RISK 7.1 - 11.0 MODERATE RISK >11.0 HIGH RISK Performed By: #### T SH, BMP #### [facility] [address] [place] [address] Dr. Ladan Diehl Cholesterol [Mass/Vol] 118 mg/dL Normal <=200 [facility] Comment on above: Performed By: #### T SH, BMP #### [facility] [address] [place] [address] Dr. Ladan Diehl Cholesterol in HDL [Mass/Vol] 43 mg/dL Normal 40-60 [facility] Comment on above: Performed By: #### T SH, BMP #### [facility] [address] [place] [address] Dr. Ladan Diehl Cholesterol in LDL [Mass/Vol] 48.8 mg/dL Normal [facility] Comment on above: Performed By: #### T SH, BMP #### [facility] [address] [place] [address] Dr. Ladan Diehl Cholesterol.total/Choles terol in HDL [Mass ratio] 2.7 {ratio} Normal [facility] Comment on above: Performed By: #### T SH, BMP #### [facility] [address] [address] [address] Ladan Diehl HDL NORMAL > or = 60 mg/dl - LOW CARDIOVASCULAR RISK <40 mg/dl - HIGH CARDIOVASCULAR RISK Normal [facility] Comment on above: Performed By: #### T SH, BMP #### [facility] [address] [address] [address] Ladan Diehl LDL CALC NORMAL SEE BELOW Normal [facility] Comment on above: Result Comment: <100 mg/dl OPTIMAL 100 - 129 mg/dl NEAR OR ABOVE OPTIMAL 130 - 159 mg/dl BORDERLINE HIGH 160 - 189 mg/dl HIGH >190 mg/dl VERY HIGH Performed By: #### T SH, BMP #### [facility] [address] [place] [address] Dr. Ladan Diehl Triglyceride [Mass/Vol] 131 mg/dL Normal <=150 [facility] Comment on above: Performed By: #### T SH, BMP #### [facility] [address] [place] [address] Dr. Ladan Diehl VLDL CALC 26.2 mg/dL Normal [facility] Comment on above: Performed By: #### T SH, BMP #### [facility] [address] [place] [address] Dr. Ladan Diehl LIVER PROFILEon 12-19-2022 Albumin [Mass/Vol] 2.7 g/dL Critically low 3.4-5.0 [facility] Comment on above: Performed By: #### T SH, BMP #### [facility] [address] [place] [address] Dr. Ladan Diehl Albumin/Globulin [Mass ratio] 0.4 {ratio} Normal [facility] Comment on above: Performed By: #### T SH, BMP #### [facility] [address] [place] [address] Dr. Ladan Diehl ALP [Catalytic activity/Vol] 154 U/L Critically high 46-116 [facility] Comment on above: Performed By: #### T SH, BMP #### [facility] [address] [place] [address] Dr. Ladan Diehl ALT [Catalytic activity/Vol] 25 U/L Normal 16-63 [facility] Comment on above: Performed By: #### T SH, BMP #### [facility] [address] [place] [address] Dr. Ladan Diehl AST [Catalytic activity/Vol] 38 U/L Critically high 15-37 [facility] Comment on above: Performed By: #### T SH, BMP #### [facility] [address] [place] [address] Dr. Ladan Diehl BILI, CONJUGATED 0.2 mg/dL Normal 0.0-0.2 [facility] Comment on above: Performed By: #### T STEFF, BMP #### [facility] [address] [place] [address] Dr. Ladan Diehl Bilirubin [Mass/Vol] 0.8 mg/dL Normal 0.2-1.0 [facility] Comment on above: Performed By: #### T STEFF, BMP #### [facility] [address] [place] [address] Dr. Ladan Diehl Globulin (S) [Mass/Vol] 6.2 g/dL Normal [facility] Comment on above: Performed By: #### T STEFF, BMP #### [facility] [address] [place] [address] Dr. Ladan Diehl Protein [Mass/Vol] 8.9 g/dL Critically high 6.4-8.2 [facility] Comment on above: Performed By: #### T STEFF, BMP #### [facility] [address] [place] [address] Dr. Ladan Diehl MICROALBUMIN, RAND URon 12-09 mALB 25.4 mg/dL Normal <=30.0 [facility] Comment on above: Performed By: #### T STEFF, BMP #### [facility] [address] [place] [address] Dr. Ladan Diehl PROF CHEM 8 (BAS METB)on Anion gap [Moles/Vol] 10.7 mmol/L Normal [facility] Comment on above: Performed By: #### T SH, BMP #### [facility] [address] [address] [address] Ladan Diehl Calcium [Mass/Vol] 9.0 mg/dL Normal 8.5-10.1 [facility] Comment on above: Performed By: #### T SH, BMP #### [facility] [address] [address] [address] Ladan Diehl Chloride [Moles/Vol] 103 mmol/L Normal 98-107 [facility] Comment on above: Performed By: #### T SH, BMP #### [facility] [address] [address] [address] Ladan Diehl CO2 [Moles/Vol] 27.5 mmol/L Normal 21.0-32.0 [facility] Comment on above: Performed By: #### T SH, BMP #### [facility] [address] [address] [address] Ladan Diehl Creatinine [Mass/Vol] 1.29 mg/dL Normal 0.70-1.30 [facility] Comment on above: Performed By: #### T SH, BMP #### [facility] [address] [address] [address] Ladan Diehl EGFR-AF PALAUAN >60 Normal >=60 [facility] Comment on above: Performed By: #### T SH, BMP #### [facility] [address] [address] [address] Ladan Diehl EGFR-NON AF PALAUAN 56 mL/min/1.73m2 Critically low >=60 [facility] Comment on above: Performed By: #### T SH, BMP #### [facility] [address] [address] [address] Ladan Diehl Glucose [Mass/Vol] 108 mg/dL Critically high 74-106 [facility] Comment on above: Performed By: #### T SH, BMP #### [facility] [address] [address] [address] Ladan Diehl Potassium [Moles/Vol] 4.2 mmol/L Normal 3.5-5.1 [facility] Comment on above: Performed By: #### T STEFF, BMP #### [facility] [address] [address] [address] Ladan Diehl Sodium [Moles/Vol] 137 mmol/L Normal 136-145 [facility] Comment on above: Performed By: #### T STEFF, BMP #### [facility] [address] [place] [address] Dr. Ladan Diehl Urea nitrogen [Mass/Vol] 12.0 mg/dL Normal 7.0-18.0 [facility] Comment on above: Performed By: #### T STEFF, BMP #### [facility] [address] [place] [address] Dr. Ladan Diehl Urea nitrogen/Creatinine [Mass ratio] 9.3 mg/mg Normal [facility] Comment on above: Performed By: #### T STEFF, BMP #### [facility] [address] [place] [address] Dr. Ladan Diehl TSHon 12-19-2022 TSH 8.668 uIU/mL Critically high 0.358-3.740 [facility] Comment on above: Performed By: #### T STEFF, BMP #### [facility] [address] [place] [address] Dr. Ladan Diehl GLYCOHEMOGLOBIN A1Con 2021 ADA RECOMMENDATION SEE BELOW Normal [facility] Comment on above: Result Comment: ADA RECOMMENDED LIMIT 4.0 - 6.0 ADA THERAPEUTIC TARGET < 7.0 ACTION SUGGESTED > 7.0 Performed By: #### A 1C #### [facility] [address] [place] [address] Dr. Ladan Diehl Glucose [Mass/Vol] 140 mg/dL Normal [facility] Comment on above: Performed By: #### A 1C #### [facility] [address] [place] [address] Dr. Ladan Diehl HbA1c (Bld) [Mass fraction] 6.5 % Critically high 4.5-6.2 [facility] Comment on above: Performed By: #### A 1C #### [facility] [address] [place], [place] [id number] Dr. 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 Authentication Interface Message Text EMERGENCY TRIAGE, TREAT AND TRANSPORT (ET3) DOCUMENTATION OF TELEHEALTH VISIT Date / Time: 05/01/2022599 Name: Evelin Patterson : 1955 SSN: [id number] EMS Agency: [facility] [x] Verbal consent obtained [] [...] Completed by: Peter Molina, DO Normal [facility] [employer] [facility] Activated partial thrombopla stin time (aPTT) in platelet poor plasma by coagulation aOrdered By: Ramesh Byrd on 04-12-2022 aPTT Coag (PPP) [Time] 24.8 s 25.1-36.5 [facility] Automated erythrocytes count in urine sediment (number/area)Ordered By: Ramesh Byrd on 04-12-2022 RBC Auto (Urine sed) [#/Area] 20-49 [HPF] 0-4 [facility] Automated leukocytes count i n urine sediment (number/area)Ordered By: Ramesh Byrd on 04-12-2022 WBC Auto (Urine sed) [#/Area] 1-2 [HPF] 0-4 [facility] B-Type Natriuretic Peptideon 04-12-2022 Natriuretic peptide B (Bld) [Mass/Vol] 196.0 pg/mL High 5-100 [facility] Comment on above: Result Comment: PERF ORMED BY: [place] [address] PATHOLOGIST WAREHOUSE DIRECTOR CHARLENE HERNANDEZ M.D. Performed By: #### C MP, TSH3, PT, HS TROP, PTT, BNP, MG, CBC #### [address] Basophils Auto (Bld) [#/Vol] Ordered By: Ramesh Byrd on 04-12-2022 Basophils (Bld) [#/Vol] 0.0 10*3/uL 0.0-0.2 [facility] Basophils/100 WBC Auto (Bld) Ordered By: Ramesh Byrd on 04-12-2022 Basophils/100 WBC (Bld) 0.6 % . F [facility] Bilirubin Test strip Ql (U)O rdered By: Ramesh Byrd on 04-12-2022 Bilirubin Ql (U) Negative Negative [facility] Blood hemoglobin measurement (mass/volume)Ordered By: Ramesh Byrd on 04-12-2022 Hemoglobin (Bld) [Mass/Vol] 12.2 g/dL 13.0-17.0 [facility] Blood leukocytes automated c ount (number/volume)Ordered By: Ramesh Byrd on 04-12-2022 WBC (Bld) [#/Vol] 6.4 10*3/uL 4.5-11.0 [facility] Body fluid albumin measureme nt (mass/volume)Ordered By: Ramesh Byrd on 04-12-2022 Albumin (Body fld) [Mass/Vol] 2.3 g/dL 3.2-5.5 [facility] Color Auto (U)Ordered By: Andi Byrd on 04-12-2022 Color (U) Yellow Yellow [facility] Complete Blood Count Auto Di ffon 04-12-2022 Basophils (Bld) [#/Vol] 0.0 10*3/uL Normal 0.0-0.2 [facility] Comment on above: Result Comment: PERF ORMED BY: [place] [address] PATHOLOGIST WAREHOUSE DIRECTOR CHARLENE HERNANDEZ M.D. Performed By: #### C MP, TSH3, PT, HS TROP, PTT, BNP, MG, CBC #### [facility] [address] Basophils/100 WBC (Bld) 0.6 % Normal . [facility] Comment on above: Performed By: #### C MP, TSH3, PT, HS TROP, PTT, BNP, MG, CBC #### [facility] [address] [place] [address] [place] Eosinophils (Bld) [#/Vol] 0.2 10*3/uL Normal 0.0-0.45 [facility] Comment on above: Performed By: #### C MP, TSH3, PT, HS TROP, PTT, BNP, MG, CBC #### [address] Eosinophils/100 WBC (Bld) 2.7 % Normal . [facility] Comment on above: Performed By: #### C MP, TSH3, PT, HS TROP, PTT, BNP, MG, CBC #### [address] Erythrocyte distribution width (RBC) [Ratio] 16.7 % High 12.0-14.8 [facility] Comment on above: Performed By: #### C MP, TSH3, PT, HS TROP, PTT, BNP, MG, CBC #### [address] Hematocrit (Bld) [Volume fraction] 36.7 % Low 38.8-50.0 [facility] Comment on above: Performed By: #### C MP, TSH3, PT, HS TROP, PTT, BNP, MG, CBC #### [address] Hemoglobin (Bld) [Mass/Vol] 12.2 g/dL Low 13.0-17.0 [facility] Comment on above: Performed By: #### C MP, TSH3, PT, HS TROP, PTT, BNP, MG, CBC #### [address] Lymphocytes (Bld) [#/Vol] 1.0 10*3/uL Normal 1.00-4.8 [facility] Comment on above: Performed By: #### C MP, TSH3, PT, HS TROP, PTT, BNP, MG, CBC #### [address] Lymphocytes/100 WBC (Bld) 16.1 % Normal . [facility] Comment on above: Performed By: #### C MP, TSH3, PT, HS TROP, PTT, BNP, MG, CBC #### [address] MCH (RBC) [Entitic mass] 31.0 pg Normal 27.5-35.2 [facility] Comment on above: Performed By: #### C MP, TSH3, PT, HS TROP, PTT, BNP, MG, CBC #### [address] MCV (RBC) [Entitic vol] 93.5 fL Normal 83.5-101 [facility] Comment on above: Performed By: #### C MP, TSH3, PT, HS TROP, PTT, BNP, MG, CBC #### [address] Mean Corpuscular HGB Conc 33.1 g/dL Normal 32.5-35.6 [facility] Comment on above: Performed By: #### C MP, TSH3, PT, HS TROP, PTT, BNP, MG, CBC #### [address] Monocytes (Bld) [#/Vol] 0.8 10*3/uL Normal 0.0-0.8 [facility] Comment on above: Performed By: #### C MP, TSH3, PT, HS TROP, PTT, BNP, MG, CBC #### [address] Monocytes/100 WBC (Bld) 12.0 % Normal . [facility] Comment on above: Performed By: #### C MP, TSH3, PT, HS TROP, PTT, BNP, MG, CBC #### [address] Neutrophils (Bld) [#/Vol] 4.4 10*3/uL Normal 1.8-7.7 [facility] Comment on above: Performed By: #### C MP, TSH3, PT, HS TROP, PTT, BNP, MG, CBC #### [address] Neutrophils/100 WBC (Bld) 68.6 % Normal . [facility] Comment on above: Performed By: #### C MP, TSH3, PT, HS TROP, PTT, BNP, MG, CBC #### [address] Nucleated RBC/100 WBC (Bld) [Ratio] 0.1 % Normal 0-0.5 [facility] Comment on above: Performed By: #### C MP, TSH3, PT, HS TROP, PTT, BNP, MG, CBC #### [address] Platelet mean volume (Bld) [Entitic vol] 8.0 fL Normal 6.6-10.1 [facility] Comment on above: Performed By: #### C MP, TSH3, PT, HS TROP, PTT, BNP, MG, CBC #### [address] Platelets (Bld) [#/Vol] 191 10*3/uL Normal 150-450 [facility] Comment on above: Performed By: #### C MP, TSH3, PT, HS TROP, PTT, BNP, MG, CBC #### [address] RBC (Bld) [#/Vol] 3.93 10*6/uL Normal 3.90-5.60 [facility] Comment on above: Performed By: #### C MP, TSH3, PT, HS TROP, PTT, BNP, MG, CBC #### [address] WBC (Bld) [#/Vol] 6.4 10*3/uL Normal 4.5-11.0 [facility] Comment on above: Performed By: #### C MP, TSH3, PT, HS TROP, PTT, BNP, MG, CBC #### [address] Comprehensive Metabolic Pane xavier 04-12-2022 Albumin [Mass/Vol] 2.3 g/dL Low 3.2-5.5 [facility] Comment on above: Performed By: #### C MP, TSH3, PT, HS TROP, PTT, BNP, MG, CBC #### [address] Albumin/Globulin [Mass ratio] 0.5 {ratio} Normal [facility] Comment on above: Performed By: #### C MP, TSH3, PT, HS TROP, PTT, BNP, MG, CBC #### [facility] [address] ALP [Catalytic activity/Vol] 97 U/L High 32-92 [facility] Comment on above: Performed By: #### C MP, TSH3, PT, HS TROP, PTT, BNP, MG, CBC #### [address] ALT [Catalytic activity/Vol] 34 U/L Normal 10-60 [facility] Comment on above: Performed By: #### C MP, TSH3, PT, HS TROP, PTT, BNP, MG, CBC #### [address] Anion gap [Moles/Vol] 17.1 mmol/L High 6.0-15.0 [facility] Comment on above: Performed By: #### C MP, TSH3, PT, HS TROP, PTT, BNP, MG, CBC #### [address] AST [Catalytic activity/Vol] 136 U/L High 10-42 [facility] Comment on above: Performed By: #### C MP, TSH3, PT, HS TROP, PTT, BNP, MG, CBC #### [address] Bilirubin [Mass/Vol] 1.3 mg/dL High 0.3-1.2 [facility] Comment on above: Result Comment: Samp les from patients who have taken Naproxen have shown spurious elevation in Total Bilirubin levels. A metabolite of Naproxen, O-desmethylnaproxen, has been shown to interfere with the Jendrjose luisik-Grof method for measuring Total Bilirubin. Performed By: #### C MP, TSH3, PT, HS TROP, PTT, BNP, MG, CBC #### [place] [address] [place] Calcium [Mass/Vol] 8.6 mg/dL Normal 8.2-10.2 [facility] Comment on above: Performed By: #### C MP, TSH3, PT, HS TROP, PTT, BNP, MG, CBC #### [facility] [address] Chloride [Moles/Vol] 97 mmol/L Normal 95-114 [facility] Comment on above: Performed By: #### C MP, TSH3, PT, HS TROP, PTT, BNP, MG, CBC #### [address] CO2 [Moles/Vol] 25.4 mmol/L Normal 22.0-30.0 [facility] Comment on above: Performed By: #### C MP, TSH3, PT, HS TROP, PTT, BNP, MG, CBC #### [address] Creatinine [Mass/Vol] 1.14 mg/dL Normal 0.64-1.27 [facility] Comment on above: Performed By: #### C MP, TSH3, PT, HS TROP, PTT, BNP, MG, CBC #### [address] Creatinine Clr Calc Pharmacy 97.67 [facility] Comment on above: Performed By: #### C MP, TSH3, PT, HS TROP, PTT, BNP, MG, CBC #### [address] Estimated GFR ( Lilibeth > 60 [facility] Comment on above: Result Comment: GFR estimated reference range: According to KDOQI guidelines, <60 ml/min/1.73m2 is sufficient to diagnose a patient with chronic kidney disease. Performed By: #### C MP, TSH3, PT, HS TROP, PTT, BNP, MG, CBC #### [address] Estimated GFR (Non- Am > 60 [facility] Comment on above: Performed By: #### C MP, TSH3, PT, HS TROP, PTT, BNP, MG, CBC #### [facility] [address] Globulin (S) [Mass/Vol] 4.7 g/dL Normal [facility] Comment on above: Performed By: #### C MP, TSH3, PT, HS TROP, PTT, BNP, MG, CBC #### [address] Glucose [Mass/Vol] 164 mg/dL High 70-100 [facility] Comment on above: Result Comment: [facility] [place] Glucose Reference Range is dependent on time and content of last meal. Glucose of more than 200 mg/dL in a nonstressed, ambulatory subject supports the diagnosis of Diabetes Mellitus. ADA recommended reference range Performed By: #### C MP, TSH3, PT, HS TROP, PTT, BNP, MG, CBC #### [address] Potassium [Moles/Vol] 3.5 mmol/L Normal 3.5-5.1 [facility] Comment on above: Performed By: #### C MP, TSH3, PT, HS TROP, PTT, BNP, MG, CBC #### [address] Protein [Mass/Vol] 7.0 g/dL Normal 6.1-7.9 [facility] Comment on above: Performed By: #### C MP, TSH3, PT, HS TROP, PTT, BNP, MG, CBC #### [address] Sodium [Moles/Vol] 136 mmol/L Normal 136-146 [facility] Comment on above: Performed By: #### C MP, TSH3, PT, HS TROP, PTT, BNP, MG, CBC #### [address] Urea nitrogen [Mass/Vol] 13 mg/dL Normal 9-23 [facility] Comment on above: Performed By: #### C MP, TSH3, PT, HS TROP, PTT, BNP, MG, CBC #### [facility] [address] [place] [address] [place] Creatinine and Glomerular fi ltration rate.predicted panel (S/P/Bld)Ordered By: Ramesh Byrd on 04-12-2022 Creatinine [Mass/Vol] 1.14 mg/dL 0.64-1.27 [facility] Dipstick and Microscopicon 0 04-12-2022 Appearance (U) Clear Normal Clear [facility] Comment on above: Order Comment: Name Collection Type:: Clean-Voided Midstream Performed By: #### A DDONUAPLUS #### [facility] [address] [place] [address] [place] Bacteria,Urine None Seen Normal None Seen [facility] Comment on above: Order Comment: Name Collection Type:: Clean-Voided Midstream Performed By: #### A DDONUAPLUS #### [facility] [address] [place] [address] Bilirubin,Urine Negative Normal Negative [facility] Comment on above: Order Comment: Name Collection Type:: Clean-Voided Midstream Performed By: #### A DDONUAPLUS #### [facility] [address] [place] [address] [place] Color (U) Yellow Normal Yellow [facility] Comment on above: Order Comment: Name Collection Type:: Clean-Voided Midstream Performed By: #### A DDONUAPLUS #### [facility] [address] [place] [address] [place] Glucose Ql (U) Normal Normal Normal [facility] Comment on above: Order Comment: Name Collection Type:: Clean-Voided Midstream Performed By: #### A DDONUAPLUS #### [facility] [address] [place] [address] [place] Hyaline Casts,Urine 0-8 Normal 0-8 [facility] Comment on above: Order Comment: Name Collection Type:: Clean-Voided Midstream Result Comment: PERF ORMED BY: [place] [address] PATHOLOGIST WAREHOUSE DIRECTOR CHARLENE HERNANDEZ M.D. Performed By: #### A DDONUAPLUS #### [facility] [address] [place] [address] [place] Ketones Ql (U) Trace High Negative [facility] Comment on above: Order Comment: Name Collection Type:: Clean-Voided Midstream Performed By: #### A DDONUAPLUS #### [address] Leukocyte esterase Test strip Ql (U) Negative Normal Negative [facility] Comment on above: Order Comment: Name Collection Type:: Clean-Voided Midstream Performed By: #### A DDONUAPLUS #### [place] [address] [place] Nitrite,Urine Negative Normal Negative [facility] Comment on above: Order Comment: Name Collection Type:: Clean-Voided Midstream Performed By: #### A DDONUAPLUS #### [place] [address] [place] Occult Blood,Urine 2+ High Negative [facility] Comment on above: Order Comment: Name Collection Type:: Clean-Voided Midstream Result Comment: PERF ORMED BY: [place] [address] PATHOLOGIST WAREHOUSE DIRECTOR CHARLENE HERNANDEZ M.D. Performed By: #### A DDONUAPLUS #### [place] [address] [place] pH (U) 6.5 [pH] Normal 5.0-9.0 [facility] Comment on above: Order Comment: Name Collection Type:: Clean-Voided Midstream Performed By: #### A DDONUAPLUS #### [place] [address] [place] Protein (U) [Mass/Vol] 100 mg/dL High Negative [facility] Comment on above: Order Comment: Name Collection Type:: Clean-Voided Midstream Performed By: #### A DDONUAPLUS #### [place] [address] [place] RBC,Urine 20-49 High 0-4 [facility] Comment on above: Order Comment: Name Collection Type:: Clean-Voided Midstream Performed By: #### A DDONUAPLUS #### [address] Specificy [place],Urine 1.020 Normal 1.001-1.030 [facility] Comment on above: Order Comment: Name Collection Type:: Clean-Voided Midstream Performed By: #### A DDONUAPLUS #### [address] Squamous Epithelial Cell,Urine 0-1 Normal 0-2 [facility] Comment on above: Order Comment: Name Collection Type:: Clean-Voided Midstream Performed By: #### A DDONUAPLUS #### [address] Urobilinogen,Urine Normal Normal Normal [facility] Comment on above: Order Comment: Name Collection Type:: Clean-Voided Midstream Performed By: #### A DDONUAPLUS #### [address] WBC,Urine 1-2 Normal 0-4 [facility] Comment on above: Order Comment: Name Collection Type:: Clean-Voided Midstream Performed By: #### A DDONUAPLUS #### [address] ECG 12 lead ECGon 04-12-2022 ECG 12 lead ECG [facility] [address] Electrocardiograph Report Signed Patient: Evelin Patterson MR#: [id number] 005 : 1955 Acct:[id number] Age/Sex: 66 / M ADM Date: 04/12/22 Loc: ER Room: Type: [facility] ER Attending Dr: Ordering Provider: [...] Prolonged QT Confirmed by Ramesh BYRD DO ([id number]) on 04/12/2022 4:38:01 PM Referred By: Electronically Signed By:Ramesh BYRD DO Transcribed By: MUS Signed By Ramesh Byrd DO 0 04/12/22 1638 Normal [facility] Eosinophils Auto (Bld) [#/Vo l]Ordered By: Ramesh Byrd on 04-12-2022 Eosinophils (Bld) [#/Vol] 0.2 10*3/uL 0.0-0.45 [facility] Eosinophils/100 WBC Auto (Bl d)Ordered By: Ramesh Byrd on 04-12-2022 Eosinophils/100 WBC (Bld) 2.7 % . [facility] Erythrocyte distribution wid th Auto (RBC) [Ratio]Ordered By: Ramesh Byrd on 04-12-2022 Erythrocyte distribution width (RBC) [Ratio] 16.7 % 12.0-14.8 [facility] Estimated glomerular filtrat ion rate (GFR) non- AmericanOrdered By: Ramesh Byrd on 04-12-2022 GFR/1.73 sq M.predicted among non-blacks MDRD (S/P/Bld) [Vol rate/Area] > 60 mL/Min [facility] Globulin Calc (S) [Mass/Vol] Ordered By: Ramesh Byrd on 04-12-2022 Globulin (S) [Mass/Vol] 4.7 g/dL [facility] Glucose Glucometer (BldC) [M ass/Vol]Ordered By: Ramesh Byrd on 04-12-2022 Glucose [Mass/Vol] 168 mg/dL [facility] Comment on above: Random Glucose Refer ence Range is dependent on time and content of last meal. Glucose of more than 200 mg/dL in a nonstressed, ambulatory subject supports the diagnosis of Diabetes Mellitus. Glucose Poct Glucometerson 0 04-12-2022 Glucose [Mass/Vol] 168 mg/dL Normal [facility] Comment on above: Result Comment: [place] [facility] Glucose Reference Range is dependent on time and content of last meal. Glucose of more than 200 mg/dL in a nonstressed, ambulatory subject supports the diagnosis of Diabetes Mellitus. PERFORMED BY: [facility] [place] [address] PATHOLOGIST WAREHOUSE DIRECTOR CHARLENE HERNANDEZ M.D. Performed By: #### G CARMEN #### Point of Care testing , Hematocrit Auto (Bld) [Volum e fraction]Ordered By: Ramesh Byrd on 04-12-2022 Hematocrit (Bld) [Volume fraction] 36.7 % 38.8-50.0 [facility] Ketones Auto test strip (U) [Mass/Vol]Ordered By: Ramesh Byrd on 04-12-2022 Ketones (U) [Mass/Vol] Trace Negative [facility] Laboratory - Chemistry and C hemistry - challengeOrdered By: Ramesh Byrd on 04-12-2022 Magnesium [Mass/Vol] 1.3 mg/dL 1.6-2.6 [facility] Natriuretic peptide B (Bld) [Mass/Vol] 196.0 pg/mL 5-100 [facility] - CoagulationOrde red By: Ramesh Byrd on 04-12-2022 PT Coag (PPP) [Time] 12.5 s 9.0-12.9 [facility] Laboratory - Hematology and Cell countsOrdered By: Ramesh Byrd on 04-12-2022 Nucleated RBC/100 WBC (Bld) [Ratio] 0.1 % 0-0.5 [facility] - UrinalysisOrder ed By: Ramesh Byrd on 04-12-2022 Hyaline casts LM Ql (Urine sed) 0-8 [LPF] 0-8 [facility] Lymphocytes Auto (Bld) [#/Vo l]Ordered By: Ramesh Byrd on 04-12-2022 Lymphocytes (Bld) [#/Vol] 1.0 10*3/uL 1.00-4.8 [facility] Lymphocytes/100 WBC Auto (Bl d)Ordered By: Ramesh Byrd on 04-12-2022 Lymphocytes/100 WBC (Bld) 16.1 % . [facility] MCH Auto (RBC) [Entitic mass ]Ordered By: Ramesh Byrd on 04-12-2022 MCH (RBC) [Entitic mass] 31.0 pg 27.5-35.2 [facility] MCHC Auto (RBC) [Mass/Vol]Or dered By: Ramesh Byrd on 04-12-2022 MCHC (RBC) [Mass/Vol] 33.1 g/dL 32.5-35.6 [facility] MCV Auto (RBC) [Entitic vol] Ordered By: Ramesh Byrd on 04-12-2022 MCV (RBC) [Entitic vol] 93.5 fL 83.5-101 [facility] Magnesiumon 04-12-2022 Magnesium [Mass/Vol] 1.3 mg/dL Low 1.6-2.6 [facility] Comment on above: Performed By: #### G LULS #### Point of Care testing , Monocytes Auto (Bld) [#/Vol] Ordered By: Ramesh Byrd on 04-12-2022 Monocytes (Bld) [#/Vol] 0.8 10*3/uL 0.0-0.8 [facility] Monocytes/100 WBC Auto (Bld) Ordered By: Ramesh Byrd on 04-12-2022 Monocytes/100 WBC (Bld) 12.0 % . [facility] Neutrophils Auto (Bld) [#/Vo l]Ordered By: Ramesh Byrd on 04-12-2022 Neutrophils (Bld) [#/Vol] 4.4 10*3/uL 1.8-7.7 [facility] Neutrophils/100 WBC Auto (Bl d)Ordered By: Ramesh Byrd on 04-12-2022 Neutrophils/100 WBC (Bld) 68.6 % . [facility] Nitrite Test strip Ql (U)Ord ered By: Ramesh Byrd on 04-12-2022 Nitrite Ql (U) Negative Negative [facility] No Panel InformationOrdered By: Ramesh Byrd on 04-12-2022 Estimated GFR () > 60 mL/Min [facility] Comment on above: GFR estimated refere nce range: According to KDOQI guidelines, <60 ml/min/1.73m2 is sufficient to diagnose a patient with chronic kidney disease. Pharmacy Creatinine Clearance (Chem 97.67 [facility] Partial Thromboplastin Timeo n 04-12-2022 aPTT Coag (Bld) [Time] 24.8 s Low 25.1-36.5 [facility] Comment on above: Result Comment: PERF ORMED BY: [facility] [address] [place] [address] PATHOLOGIST WAREHOUSE DIRECTOR CHARLENE HERNANDEZ M.D. Performed By: #### C MP, TSH3, PT, HS TROP, PTT, BNP, MG, CBC #### [facility] [address] Platelet mean volume Auto (B ld) [Entitic vol]Ordered By: Ramesh Byrd on 04-12-2022 Platelet mean volume (Bld) [Entitic vol] 8.0 fL 6.6-10.1 [facility] Platelet poor plasma interna tional normalized ratio (INR) by coagulation assay (relatOrdered By: Ramesh Byrd on 04-12-2022 INR Coag (PPP) [Relative time] 1.1 {INR} [facility] Comment on above: INR Therapeutic Rang [...] 04-12-2022 Platelets (Bld) [#/Vol] 191 10*3/uL 150-450 [facility] Protein Auto test strip (U) [Mass/Vol]Ordered By: Ramesh Byrd on 04-12-2022 Protein (U) [Mass/Vol] 100 mg/dL Negative [facility] Protein [Mass/volume] in Ser um or PlasmaOrdered By: Ramesh Byrd on 04-12-2022 Protein [Mass/Vol] 7.0 g/dL 6.1-7.9 [facility] Prothrombin Time INRon 04-12 INR Coag (PPP) [Relative time] 1.1 {INR} Normal [facility] Comment on above: Result Comment: INR [...] HS TROP, PTT, BNP, MG, CBC #### [facility] [address] PT Coag (PPP) [Time] 12.5 s Normal 9.0-12.9 [facility] Comment on above: Performed By: #### C MP, TSH3, PT, HS TROP, PTT, BNP, MG, CBC #### [facility] [address] RBC Auto (Bld) [#/Vol]Ordere d By: Ramesh Byrd on 04-12-2022 RBC (Bld) [#/Vol] 3.93 10*6/uL 3.90-5.60 [facility] Serum or plasma alanine vivas otransferase measurement without P-5'-P (enzymatic activiOrdered By: Ramesh Byrd on 04-12-2022 ALT No additional P-5'-P [Catalytic activity/Vol] 34 U/L [facility] Serum or plasma albumin/glob ulin mass ratioOrdered By: Ramesh Byrd on 04-12-2022 Albumin/Globulin [Mass ratio] 0.5 {ratio} [facility] Serum or plasma alkaline dilan sphatase measurement (enzymatic activity/volume)Ordered By: Ramesh Byrd on 04-12-2022 ALP [Catalytic activity/Vol] 97 U/L 32-92 [facility] Serum or plasma anion gap de terminationOrdered By: Ramesh Byrd on 04-12-2022 Anion gap [Moles/Vol] 17.1 mmol/L 6.0-15.0 [facility] Serum or plasma aspartate am inotransferase measurement (enzymatic activity/volume)Ordered By: Ramesh Byrd on 04-12-2022 AST [Catalytic activity/Vol] 136 U/L 10 [facility] Serum or plasma calcium osbaldo urement (mass/volume)Ordered By: Ramesh Byrd on 04-12-2022 Calcium [Mass/Vol] 8.6 mg/dL 8.2-10.2 [facility] Serum or plasma chloride judith surement (moles/volume)Ordered By: Ramesh Byrd on 04-12-2022 Chloride [Moles/Vol] 97 mmol/L 95-114 [facility] Serum or plasma glucose osbaldo urement (mass/volume)Ordered By: Ramesh Byrd on 04-12-2022 Glucose [Mass/Vol] 164 mg/dL 70-100 [facility] Comment on above: ADA recommended refe rence range Random Glucose Reference Range is dependent on time and content of last meal. Glucose of more than 200 mg/dL in a nonstressed, ambulatory subject supports the diagnosis of Diabetes Mellitus. Serum or plasma potassium me asurement (moles/volume)Ordered By: Ramesh Byrd on 04-12-2022 Potassium [Moles/Vol] 3.5 mmol/L 3.5-5.1 [facility] Serum or plasma sodium measu rement (moles/volume)Ordered By: Ramesh Byrd on 04-12-2022 Sodium [Moles/Vol] 136 mmol/L 136-146 [facility] Serum or plasma total biliru bin measurement (mass/volume)Ordered By: Ramesh Byrd on 04-12-2022 Bilirubin [Mass/Vol] 1.3 mg/dL 0.3-1.2 [facility] Comment on above: Samples from patient s who have taken Naproxen have shown spurious elevation in Total Bilirubin levels. A metabolite of Naproxen, O-desmethylnaproxen, has been shown to interfere with the Ronny-Chirag method for measuring Total Bilirubin. Serum or plasma total carbon dioxide measurement (moles/volume)Ordered By: Ramesh Byrd on 04-12-2022 CO2 [Moles/Vol] 25.4 mmol/L 22.0-30.0 [facility] Serum or plasma urea nitroge n measurement (mass/volume)Ordered By: Ramehs Byrd on 04-12-2022 Urea nitrogen [Mass/Vol] 13 mg/dL 9-23 [facility] Specific gravity Auto test s trip (U) [Rel density]Ordered By: Ramesh Byrd on 04-12-2022 Specific gravity (U) [Rel density] 1.020 1.001-1.030 [facility] Squamous epithelial cells de tection in urine sediment by light microscopyOrdered By: Ramesh Byrd on 04-12-2022 Epithelial cells.squamous LM Ql (Urine sed) 0-1 [HPF] 0-2 [facility] TSH DL <= 0.005 mIU/L QnOrde red By: Ramesh Byrd on 04-12-2022 TSH Qn 13.14 m[IU]/L 0.45-5.33 [facility] Thyroid Stimulating Hormoneo n 04-12-2022 TSH Qn 13.14 m[IU]/L High 0.45-5.33 [facility] Comment on above: Result Comment: PERF ORMED BY: [place] [address] PATHOLOGIST WAREHOUSE DIRECTOR CHARLENE HERNANDEZ M.D. Performed By: #### G LULS #### Point of Care testing , Troponin I High Sensitivityo n 04-12-2022 Troponin I High Sensitivity 18 pg/mL Normal 0-20 [facility] Comment on above: Result Comment: PERF ORMED BY: [place] [address] PATHOLOGIST WAREHOUSE DIRECTOR CHARLENE HERNANDEZ M.D. Performed By: #### C MP, TSH3, PT, HS TROP, PTT, BNP, MG, CBC #### [place] [address] [place] Troponin I.cardiac [Mass/vol ume] in Serum or Plasma by High sensitivity methodOrdered By: Ramesh Byrd on 04-12-2022 Troponin I.cardiac High sensitivity method [Mass/Vol] 18 pg/mL 0-20 [facility] Urine bacteria detection by automated methodOrdered By: Ramesh Byrd on 04-12-2022 Bacteria Auto Ql (U) None seen None Seen [facility] Urine clarity by refractomet ry automatedOrdered By: Ramesh Byrd on 04-12-2022 Clarity Refractometry automated (U) Clear Clear [facility] Urine glucose measurement by automated test strip (mass/volume)Ordered By: Ramesh Byrd on 04-12-2022 Glucose Auto test strip (U) [Mass/Vol] Normal mg/dL Normal [facility] Urine hemoglobin detection b y automated test stripOrdered By: Ramesh Byrd on 04-12-2022 Hemoglobin Auto test strip Ql (U) 2+ Negative [facility] Urine leukocyte esterase det ection by automated test stripOrdered By: Ramesh Byrd on 04-12-2022 Leukocyte esterase Auto test strip Ql (U) Negative Negative [facility] Urobilinogen Auto test strip (U) [Mass/Vol]Ordered By: Ramesh Byrd on 04-12-2022 Urobilinogen (U) [Mass/Vol] Normal mg/dL Normal [facility] XR chest 2V*on 04-12-2022 XR chest 2V* [facility] [address] XRay Report Signed Patient: Evelin Patterson MR#: [id number] 005 : 1955 Acct:[id number] Age/Sex: 66 / M ADM Date: 04/12/22 Loc: ER Room: Type: [facility] ER Attending Dr: Copies to: Ramesh Byrd [...] Jessica Cazares M.D.04/12/2022 11:53 AM Dictation Location: [place] [address] Transcribed By: [facility] 04/12/22 1153 Dictated By: Jessica Cazaers MD 04/12/22 1151 Signed By: 04/12/22 1153 Normal [facility] pH Auto test strip (U)Ordere d By: Ramesh Byrd on 04-12-2022 pH (U) 6.5 [pH] 5.0-9.0 [facility] Albumin [Mass/volume] in Ser um or PlasmaOrdered By: Lupe Hernandez on 04-09-2022 Albumin [Mass/Vol] 1.9 g/dL 3.2-5.5 [facility] Basophils Auto (Bld) [#/Vol] Ordered By: Lupe Hernandez on 04-09-2022 Basophils (Bld) [#/Vol] 0.1 10*3/uL 0.0-0.2 [facility] Basophils/100 WBC Auto (Bld) Ordered By: Lupe Hernandez on 04-09-2022 Basophils/100 WBC (Bld) 1.3 % . [facility] Blood hemoglobin measurement (mass/volume)Ordered By: Lupe Hernandez on 04-09-2022 Hemoglobin (Bld) [Mass/Vol] 11.2 g/dL 13.0-17.0 [facility] Blood leukocytes automated c ount (number/volume)Ordered By: Lupe Hernandez on 04-09-2022 WBC (Bld) [#/Vol] 5.4 10*3/uL 4.5-11.0 [facility] Creatinine and Glomerular fi ltration rate.predicted panel (S/P/Bld)Ordered By: Lupe Hernandez on 04-09-2022 Creatinine [Mass/Vol] 0.88 mg/dL 0.64-1.27 [facility] Eosinophils Auto (Bld) [#/Vo l]Ordered By: Lupe Hernandez on 04-09-2022 Eosinophils (Bld) [#/Vol] 0.3 10*3/uL 0.0-0.45 [facility] Eosinophils/100 WBC Auto (Bl d)Ordered By: Lupe Hernandez on 04-09-2022 Eosinophils/100 WBC (Bld) 5.6 % . [facility] Erythrocyte distribution wid th Auto (RBC) [Ratio]Ordered By: Lupe Hernandez on 04-09-2022 Erythrocyte distribution width (RBC) [Ratio] 16.5 % 12.0-14.8 [facility] Estimated glomerular filtrat ion rate (GFR) non- AmericanOrdered By: Lupe Hernandez on 04-09-2022 GFR/1.73 sq M.predicted among non-blacks MDRD (S/P/Bld) [Vol rate/Area] > 60 mL/Min [facility] Globulin Calc (S) [Mass/Vol] Ordered By: Lupe Hernandez on 04-09-2022 Globulin (S) [Mass/Vol] 4.2 g/dL [facility] Glucose Glucometer (BldC) [M ass/Vol]Ordered By: Lupe Hernandez on 04-09-2022 Glucose [Mass/Vol] 178 mg/dL [facility] Comment on above: Random Glucose Refer ence Range is dependent on time and content of last meal. Glucose of more than 200 mg/dL in a nonstressed, ambulatory subject supports the diagnosis of Diabetes Mellitus. Hematocrit Auto (Bld) [Volum e fraction]Ordered By: Lupe Hernandez on 04-09-2022 Hematocrit (Bld) [Volume fraction] 33.6 % 38.8-50.0 [facility] Laboratory - Hematology and Cell countsOrdered By: Lupe Hernandez on 04-09-2022 Nucleated RBC/100 WBC (Bld) [Ratio] 0.2 % 0-0.5 [facility] Lymphocytes Auto (Bld) [#/Vo l]Ordered By: Lupe Hernandez on 04-09-2022 Lymphocytes (Bld) [#/Vol] 1.0 10*3/uL 1.00-4.8 [facility] Lymphocytes/100 WBC Auto (Bl d)Ordered By: Lupe Hernandez on 04-09-2022 Lymphocytes/100 WBC (Bld) 18.3 % . [facility] MCH Auto (RBC) [Entitic mass ]Ordered By: Lupe Hernandez on 04-09-2022 MCH (RBC) [Entitic mass] 31.1 pg 27.5-35.2 [facility] MCHC Auto (RBC) [Mass/Vol]Or dered By: Lupe Hernandez on 04-09-2022 MCHC (RBC) [Mass/Vol] 33.5 g/dL 32.5-35.6 [facility] MCV Auto (RBC) [Entitic vol] Ordered By: Lupe Hernandez on 04-09-2022 MCV (RBC) [Entitic vol] 93.0 fL 83.5-101 [facility] Monocytes Auto (Bld) [#/Vol] Ordered By: Lpue Hernandez on 04-09-2022 Monocytes (Bld) [#/Vol] 0.6 10*3/uL 0.0-0.8 [facility] Monocytes/100 WBC Auto (Bld) Ordered By: Lupe Hernandez on 04-09-2022 Monocytes/100 WBC (Bld) 11.0 % . [facility] Neutrophils Auto (Bld) [#/Vo l]Ordered By: Lupe Hernandez on 04-09-2022 Neutrophils (Bld) [#/Vol] 3.4 10*3/uL 1.8-7.7 [facility] Neutrophils/100 WBC Auto (Bl d)Ordered By: Lupe Hernandez on 04-09-2022 Neutrophils/100 WBC (Bld) 63.8 % . [facility] No Panel InformationOrdered By: Lupe Hernandez on 04-09-2022 Bedside Glucose Comment Glu2: cleaned meter [facility] Estimated GFR () > 60 mL/Min [facility] Comment on above: GFR estimated refere nce range: According to KDOQI guidelines, <60 ml/min/1.73m2 is sufficient to diagnose a patient with chronic kidney disease. Pharmacy Creatinine Clearance (Chem 130.27 [facility] Platelet mean volume Auto (B ld) [Entitic vol]Ordered By: Lupe Hernandez on 04-09-2022 Platelet mean volume (Bld) [Entitic vol] 7.6 fL 6.6-10.1 [facility] Platelets Auto (Bld) [#/Vol] Ordered By: Lupe Hernandez on 04-09-2022 Platelets (Bld) [#/Vol] 214 10*3/uL 150-450 [facility] Protein [Mass/volume] in Ser um or PlasmaOrdered By: Lupe Hernandez on 04-09-2022 Protein [Mass/Vol] 6.1 g/dL 6.1-7.9 [facility] RBC Auto (Bld) [#/Vol]Ordere d By: Lupe Hernandez on 04-09-2022 RBC (Bld) [#/Vol] 3.61 10*6/uL 3.90-5.60 [facility] Serum or plasma alanine vivas otransferase measurement without P-5'-P (enzymatic activiOrdered By: Lupe Hernandez on 04-09-2022 ALT No additional P-5'-P [Catalytic activity/Vol] 21 U/L 10-[address] [facility] Serum or plasma albumin/glob ulin mass ratioOrdered By: Lupe Hernandez on 04-09-2022 Albumin/Globulin [Mass ratio] 0.5 {ratio} [facility] Serum or plasma alkaline dilan sphatase measurement (enzymatic activity/volume)Ordered By: Lupe Hernandez on 04-09-2022 ALP [Catalytic activity/Vol] 89 U/L 32-92 [facility] Serum or plasma anion gap de terminationOrdered By: Lupe Hernandez on 04-09-2022 Anion gap [Moles/Vol] 8.4 mmol/L 6.0-15.0 [facility] Serum or plasma aspartate am inotransferase measurement (enzymatic activity/volume)Ordered By: Lupe Hernandez on 04-09-2022 AST [Catalytic activity/Vol] 27 U/L 10-42 [facility] Serum or plasma calcium osbaldo urement (mass/volume)Ordered By: Lupe Hernandez on 04-09-2022 Calcium [Mass/Vol] 8.2 mg/dL 8.2-10.2 [facility] Serum or plasma chloride judith surement (moles/volume)Ordered By: Lupe Hernandez on 04-09-2022 Chloride [Moles/Vol] 98 mmol/L 95-114 [facility] Serum or plasma glucose osbaldo urement (mass/volume)Ordered By: Lupe Hernandez on 04-09-2022 Glucose [Mass/Vol] 150 mg/dL 70-100 [facility] Comment on above: ADA recommended refe rence range Random Glucose Reference Range is dependent on time and content of last meal. Glucose of more than 200 mg/dL in a nonstressed, ambulatory subject supports the diagnosis of Diabetes Mellitus. Serum or plasma potassium me asurement (moles/volume)Ordered By: Lupe Hernandez on 04-09-2022 Potassium [Moles/Vol] 3.4 mmol/L 3.5-5.1 [facility] Serum or plasma sodium measu rement (moles/volume)Ordered By: Lupe Hernandez on 04-09-2022 Sodium [Moles/Vol] 134 mmol/L 136-146 [facility] Serum or plasma total biliru bin measurement (mass/volume)Ordered By: Lupe Hernandez on 04-09-2022 Bilirubin [Mass/Vol] 0.7 mg/dL 0.3-1.2 [facility] Serum or plasma total carbon dioxide measurement (moles/volume)Ordered By: Lupe Hernandez on 04-09-2022 CO2 [Moles/Vol] 31.0 mmol/L 22.0-30.0 [facility] Serum or plasma urea nitroge n measurement (mass/volume)Ordered By: Lupe Hernandez on 04-09-2022 Urea nitrogen [Mass/Vol] 9 mg/dL 05-03 [facility] Bacterial blood cultureOrder ed By: Luke Moran on 04-07-2022 Bacteria identified Cx Nom (Bld) NO GROWTH 5 DAYS [facility] Laboratory - Chemistry and C hemistry - challengeOrdered By: Luke Moran on 04-04-2022 CO2 [Moles/Vol] 29.4 mmol/L 23.0-27.0 [facility] HCO3 (Bld) [Moles/Vol] 28.1 mmol/L 23.0-29.0 [facility] No Panel InformationOrdered By: Luke Moran on 04-04-2022 Arterial Blood Base Excess 3.4 mmol/L -3.0-3.0 [facility] Arterial Blood Oxygen Content 6.4 mmol/L 6.6-9.7 [facility] Arterial Blood Oxygen Saturation 92.1 % 95.0-100.0 [facility] Arterial Blood Partial Pressure CO2 43.2 mm[Hg] 35.0-45.0 [facility] Arterial Blood Partial Pressure O2 61.4 mm[Hg] 80.0-100.0 [facility] Arterial Blood pH 7.43 7.35-7.[address] [facility] Blood Gas Critical Value See comment [facility] Comment on above: Critical Value kaufman d on: 04/04/2022 at 09:33 Blood Gas Liter Flow 2 L/min [facility] Blood Gas Sample Site Left radial [facility] FiO2 28 % [facility] Oxygen Delivery Device Nasal cannula [facility] Automated erythrocytes count in urine sediment (number/area)Ordered By: Jair Gabriel on 04-03-2022 RBC Auto (Urine sed) [#/Area] 3-4 [HPF] 0-4 [facility] Automated leukocytes count i n urine sediment (number/area)Ordered By: Jair Gabriel on 04-03-2022 WBC Auto (Urine sed) [#/Area] None seen [HPF] 0-4 [facility] Bilirubin Test strip Ql (U)O rdered By: Jair Gabriel on 04-03-2022 Bilirubin Ql (U) Negative Negative [facility] Color Auto (U)Ordered By: Tam Gabriel on 04-03-2022 Color (U) Yellow Yellow [facility] Hepatitis B virus surface Ag [Presence] in Serum or Plasma by ImmunoassayOrdered By: Luke Moran on 04-03-2022 HBV surface Ag IA Ql Negative Negative [facility] Comment on above: Performed at: [address] [id number] Door Cutter: Genaro Becerril PhD, Phone: [phone] IgA [Mass/volume] in Serum o r PlasmaOrdered By: Luke Moran on 04-03-2022 IgA [Mass/Vol] 697 mg/dL 61-132 [facility] IgG [Mass/volume] in Serum o r PlasmaOrdered By: Luke Moran on 04-03-2022 IgG [Mass/Vol] 1107 mg/dL 603-7934 [facility] IgM [Mass/volume] in Serum o r PlasmaOrdered By: Luke Moran on 04-03-2022 IgM [Mass/Vol] 91 mg/dL 20-172 [facility] Comment on above: Performed at: [address] [id number] Door Cutter: Genaro Becerril PhD, Phone: [phone] Immunofixation for UrineOrde red By: Luke Moran on 04-03-2022 Interpretation Immunofixation (U) [Interp] See comment . [facility] Comment on above: No monoclonality det ected. Performed at: [facility] [id number] Door Cutter: Genaro Becerril PhD, Phone: [phone] Immunoglobulin light chains. kappa.free [Mass/volume] in SerumOrdered By: Luke Moran on 04-03-2022 Immunoglobulin light chains.kappa.free (S) [Mass/Vol] 93.9 mg/L 3.3-19.4 [facility] Immunoglobulin light chains. kappa.free/Immunoglobulin light chains.lambda.free [MassOrdered By: Luke Moran on 04-03-2022 Immunoglobulin light chains.kappa.free/Immuno globulin light chains.lambda.free (S) [Mass ratio] 1.52 0.26-1.65 [facility] Comment on above: Performed at: [facility] [employer] [address] [id number] Door Cutter: Genaro Becerril PhD, Phone: [phone] Immunoglobulin light chains. lambda.free [Mass/volume] in Serum or PlasmaOrdered By: Luke Moran on 04-03-2022 Immunoglobulin light chains.lambda.free [Mass/Vol] 61.6 mg/L 5.7-26.3 [facility] Ketones Auto test strip (U) [Mass/Vol]Ordered By: Jair Gabriel on 04-03-2022 Ketones (U) [Mass/Vol] Negative Negative [facility] Laboratory - UrinalysisOrder ed By: Jair Gabriel on 04-03-2022 Hyaline casts LM Ql (Urine sed) 0-8 [LPF] 0-8 [facility] Nitrite Test strip Ql (U)Ord ered By: Jair Gabriel on 04-03-2022 Nitrite Ql (U) Negative Negative [facility] No Panel InformationOrdered By: Luke Moran on 04-03-2022 Hepatitis C Interpretation See comment . [facility] Comment on above: Negative Not infected with HCV, unless recent infection is suspected or other evidence exists to indicate HCV infection. Hepatitis C RNA Quantitative N/A [facility] Serum Immunofixation See comment . [facility] Comment on above: Immunofixation shows IgG monoclonal protein with lambda light chain specificity. Protein Auto test strip (U) [Mass/Vol]Ordered By: Jair Gabriel on 04-03-2022 Protein (U) [Mass/Vol] Negative Negative [facility] Random cortisol measurementO rdered By: Luke Moran on 04-03-2022 Cortisol [Mass/Vol] 5.8 ug/dL [facility] Comment on above: Reference range: AM 6 - 24 ug/dl PM <10 ug/dl Serum hepatitis B virus surf calin antibody detectionOrdered By: Luke Moran on 04-03-2022 HBV surface Ab Ql (S) Reactive . [facility] Comment on above: Non Reactive: [...] IA [Rel units/Vol] 0.1 s/co ratio 0.0-0.9 [facility] Comment on above: --- 04/04/22 0736 -- - Hep C Ab previously reported as: <0.1 s/co ratio Specific gravity Auto test s trip (U) [Rel density]Ordered By: Jair Gabriel on 04-03-2022 Specific gravity (U) [Rel density] 1.035 1.001-1.030 [facility] Squamous epithelial cells de tection in urine sediment by light microscopyOrdered By: Jair Gabriel on 04-03-2022 Epithelial cells.squamous LM Ql (Urine sed) None seen [HPF] 0-2 [facility] TSH DL <= 0.005 mIU/L QnOrde red By: Luke Moran on 04-03-2022 TSH Qn 22.19 m[IU]/L 0.45-5.33 [facility] Urine bacteria detection by automated methodOrdered By: Jair Gabriel on 04-03-2022 Bacteria Auto Ql (U) None seen None Seen [facility] Urine clarity by refractomet ry automatedOrdered By: Jair Gabriel on 04-03-2022 Clarity Refractometry automated (U) Clear Clear [facility] Urine glucose measurement by automated test strip (mass/volume)Ordered By: Jair Gabriel on 04-03-2022 Glucose Auto test strip (U) [Mass/Vol] 100 mg/dL Normal [facility] Urine hemoglobin detection b y automated test stripOrdered By: Jair Gabriel on 04-03-2022 Hemoglobin Auto test strip Ql (U) 3+ Negative [facility] Urine leukocyte esterase det ection by automated test stripOrdered By: Jair Gabriel on 04-03-2022 Leukocyte esterase Auto test strip Ql (U) Negative Negative [facility] Urobilinogen Auto test strip (U) [Mass/Vol]Ordered By: Jair Gabriel on 04-03-2022 Urobilinogen (U) [Mass/Vol] Normal mg/dL Normal [facility] pH Auto test strip (U)Ordere d By: Jair Gabriel on 04-03-2022 pH (U) 5.0 [pH] 5.0-9.0 [facility] Activated partial thrombopla stin time (aPTT) in platelet poor plasma by coagulation aOrdered By: Jair Gabriel on 04-02-2022 aPTT Coag (PPP) [Time] 24.8 s 25.1-36.5 [facility] COVID-19 Positive/NegativeOr dered By: Jair Gabriel on 04-02-2022 SARS-CoV-2 (COVID-19) N gene MANJIT+probe Ql (Resp) Negative Negative [facility] Comment on above: Testing for SARS-CoV -2 by RT-PCR This test was developed and its performance characteristics determined by [employer] ([place]) and validated at the [facility]. This test has not been FDA [...] (COVID-19) Ag IA.rapid Ql (Resp) Negative Negative [facility] Comment on above: This is a duplicate Cristal SARS Antigen (GONZALO) result to be used for statistical tracking purpose only. Laboratory - Chemistry and C hemistry - challengeOrdered By: Jair Gabriel on 04-02-2022 Natriuretic peptide B (Bld) [Mass/Vol] 55.0 pg/mL 5-100 [facility] Laboratory - CoagulationOrde red By: Jair Gabriel on 04-02-2022 PT Coag (PPP) [Time] 11.9 s 9.0-12.9 [facility] No Panel InformationOrdered By: Luke Moran on 04-02-2022 D-Dimer Quantitative (PE/DVT) 2825 ng/mL 0-243 [facility] Comment on above: The reference range [...] Jair Gabriel on 04-02-2022 SARS Antigen (LFIA) [facility] Platelet poor plasma interna tional normalized ratio (INR) by coagulation assay (relatOrdered By: Jair Gabriel on 04-02-2022 INR Coag (PPP) [Relative time] 1.1 {INR} [facility] Comment on above: INR Therapeutic Rang [...] High sensitivity method [Mass/Vol] 26 pg/mL 0-20 [facility] Albumin [Mass/volume] in Ser um or PlasmaOrdered By: Sarah Osuna on 03-16-2022 Albumin [Mass/Vol] 1.9 g/dL 3.2-5.5 [facility] Creatinine and Glomerular fi ltration rate.predicted panel (S/P/Bld)Ordered By: Sarah Osuna on 03-16-2022 Creatinine [Mass/Vol] 1.27 mg/dL 0.64-1.27 [facility] Estimated glomerular filtrat ion rate (GFR) non- AmericanOrdered By: Sarah Osuna on 03-16-2022 GFR/1.73 sq M.predicted among non-blacks MDRD (S/P/Bld) [Vol rate/Area] 57 mL/Min [facility] Glucose Glucometer (BldC) [M ass/Vol]Ordered By: Xin Phan on 03-16-2022 Glucose [Mass/Vol] 377 mg/dL [facility] Comment on above: Random Glucose Refer ence Range is dependent on time and content of last meal. Glucose of more than 200 mg/dL in a nonstressed, ambulatory subject supports the diagnosis of Diabetes Mellitus. No Panel InformationOrdered By: Sarah Osuna on 03-16-2022 Estimated GFR () > 60 mL/Min [facility] Comment on above: GFR estimated refere nce range: According to KDOQI guidelines, <60 ml/min/1.73m2 is sufficient to diagnose a patient with chronic kidney disease. Pharmacy Creatinine Clearance (Chem 90.76 [facility] Serum or plasma calcium osbaldo urement (mass/volume)Ordered By: Sarah Osuna on 03-16-2022 Calcium [Mass/Vol] 8.4 mg/dL 8.2-10.2 [facility] Serum or plasma chloride judith surement (moles/volume)Ordered By: Sarah Osuna on 03-16-2022 Chloride [Moles/Vol] 99 mmol/L 95-114 [facility] Serum or plasma glucose osbaldo urement (mass/volume)Ordered By: Sarah Osuna on 03-16-2022 Glucose [Mass/Vol] 265 mg/dL 70-100 [facility] Comment on above: Delta: 480 on -1041 ADA recommended reference range Random Glucose Reference Range is dependent on time and content of last meal. Glucose of more than 200 mg/dL in a nonstressed, ambulatory subject supports the diagnosis of Diabetes Mellitus. Serum or plasma potassium me asurement (moles/volume)Ordered By: Xin Phan on 03-16-2022 Potassium [Moles/Vol] 4.0 mmol/L 3.5-5.1 [facility] Serum or plasma sodium measu rement (moles/volume)Ordered By: Sarah Osuna on 03-16-2022 Sodium [Moles/Vol] 132 mmol/L 136-146 [facility] Serum or plasma total carbon dioxide measurement (moles/volume)Ordered By: Sarah Osuna on 03-16-2022 CO2 [Moles/Vol] 25.4 mmol/L 22.0-30.0 [facility] Serum or plasma urea nitroge n measurement (mass/volume)Ordered By: Sarah Osuna on 03-16-2022 Urea nitrogen [Mass/Vol] 24 mg/dL 9-23 [facility] Serum phospholipid phosphoru s measurement (mass/volume)Ordered By: Xin Phan on 03-16-2022 Phospholipid phosphorus (S) [Mass/Vol] 2.0 mg/dL 2.5-4.6 [facility] No Panel InformationOrdered By: Xin Phan on 03-15-2022 Bedside Glucose Comment See comment [facility] Comment on above: Glu2: WILL NOTIFY DR /RN Bedside Glucose #2 Comment Cleaned meter [facility] Automated erythrocytes count in urine sediment (number/area)Ordered By: Sarah Osuna on 03-14-2022 RBC Auto (Urine sed) [#/Area] 0-1 [HPF] 0-4 [facility] Automated leukocytes count i n urine sediment (number/area)Ordered By: Sarah Osuna on 03-14-2022 WBC Auto (Urine sed) [#/Area] 0-1 [HPF] 0-4 [facility] Basophils Auto (Bld) [#/Vol] Ordered By: Leah Huang on 03-14-2022 Basophils (Bld) [#/Vol] 0.0 10*3/uL 0.0-0.2 [facility] Basophils/100 WBC Auto (Bld) Ordered By: Leah Huang on 03-14-2022 Basophils/100 WBC (Bld) 0.2 % . [facility] Bilirubin Auto test strip Ql (U)Ordered By: Sarah Osuna on 03-14-2022 Bilirubin Ql (U) Negative Negative [facility] Blood hemoglobin measurement (mass/volume)Ordered By: Leah Huang on 03-14-2022 Hemoglobin (Bld) [Mass/Vol] 11.6 g/dL 13.0-17.0 [facility] Blood leukocytes automated c ount (number/volume)Ordered By: Leah Huang on 03-14-2022 WBC (Bld) [#/Vol] 6.0 10*3/uL 4.5-11.0 [facility] Creatinine [Mass/volume] in UrineOrdered By: Sarah Osuna on 03-14-2022 Creatinine (U) [Mass/Vol] 76.9 mg/dL [facility] Comment on above: No reference range e stablished Eosinophils Auto (Bld) [#/Vo l]Ordered By: Leah Huang on 03-14-2022 Eosinophils (Bld) [#/Vol] 0.1 10*3/uL 0.0-0.45 [facility] Eosinophils/100 WBC Auto (Bl d)Ordered By: Leah Huang on 03-14-2022 Eosinophils/100 WBC (Bld) 1.4 % . [facility] Erythrocyte distribution wid th Auto (RBC) [Ratio]Ordered By: Leah Huang on 03-14-2022 Erythrocyte distribution width (RBC) [Ratio] 15.8 % 12.0-14.8 [facility] Globulin Calc (S) [Mass/Vol] Ordered By: Leah Huang on 03-14-2022 Globulin (S) [Mass/Vol] 3.8 g/dL [facility] Glucose mean value [Mass/vol ume] in Blood Estimated from glycated hemoglobinOrdered By: Leah Huang on 03-14-2022 Average glucose Estimated from glycated hemoglobin (Bld) [Mass/Vol] 329 mg/dL [facility] Hematocrit Auto (Bld) [Volum e fraction]Ordered By: Leah Huang on 03-14-2022 Hematocrit (Bld) [Volume fraction] 35.1 % 38.8-50.0 [facility] Hemoglobin A1c percentageOrd ered By: Leah Huang on 03-14-2022 HbA1c (Bld) [Mass fraction] 13.1 % 4.3-5.6 [facility] Comment on above: Increased risk for d iabetes: 5.7 - 6.4 diabetes: >6.4 glycemic control for adults with diabetes: <7.0 Ketones Auto test strip (U) [Mass/Vol]Ordered By: Sarah Osuna on 03-14-2022 Ketones (U) [Mass/Vol] Negative Negative [facility] Laboratory - Hematology and Cell countsOrdered By: Leah Huang on 03-14-2022 Nucleated RBC/100 WBC (Bld) [Ratio] 0.1 % 0-0.5 [facility] - UrinalysisOrder ed By: Sarah Osuna on 03-14-2022 Hyaline casts LM Ql (Urine sed) 0-8 [LPF] 0-8 [facility] Lymphocytes Auto (Bld) [#/Vo l]Ordered By: Leah Huang on 03-14-2022 Lymphocytes (Bld) [#/Vol] 1.4 10*3/uL 1.00-4.8 [facility] Lymphocytes/100 WBC Auto (Bl d)Ordered By: Leah Huang on 03-14-2022 Lymphocytes/100 WBC (Bld) 22.7 % . [facility] MCH Auto (RBC) [Entitic mass ]Ordered By: Leah Huang on 03-14-2022 MCH (RBC) [Entitic mass] 29.9 pg 27.5-35.2 [facility] MCHC Auto (RBC) [Mass/Vol]Or dered By: Leah Huang on 03-14-2022 MCHC (RBC) [Mass/Vol] 33.0 g/dL 32.5-35.6 [facility] MCV Auto (RBC) [Entitic vol] Ordered By: Leah Huang on 03-14-2022 MCV (RBC) [Entitic vol] 90.4 fL 83.5-101 [facility] Monocytes Auto (Bld) [#/Vol] Ordered By: Leah Huang on 03-14-2022 Monocytes (Bld) [#/Vol] 0.5 10*3/uL 0.0-0.8 [facility] Monocytes/100 WBC Auto (Bld) Ordered By: Leah Huang on 03-14-2022 Monocytes/100 WBC (Bld) 9.0 % . [facility] Neutrophils Auto (Bld) [#/Vo l]Ordered By: Leah Huang on 03-14-2022 Neutrophils (Bld) [#/Vol] 4.0 10*3/uL 1.8-7.7 [facility] Neutrophils/100 WBC Auto (Bl d)Ordered By: Leah Huang on 03-14-2022 Neutrophils/100 WBC (Bld) 66.7 % . [facility] Platelet mean volume Auto (B ld) [Entitic vol]Ordered By: Leah Huang on 03-14-2022 Platelet mean volume (Bld) [Entitic vol] 8.9 fL 6.6-10.1 [facility] Platelets Auto (Bld) [#/Vol] Ordered By: Leah Huang on 03-14-2022 Platelets (Bld) [#/Vol] 143 10*3/uL 150-450 [facility] Protein Auto test strip (U) [Mass/Vol]Ordered By: Sarah Osuna on 03-14-2022 Protein (U) [Mass/Vol] Negative Negative [facility] Protein [Mass/volume] in Ser um or PlasmaOrdered By: Leah Huang on 03-14-2022 Protein [Mass/Vol] 5.8 g/dL 6.1-7.9 [facility] Protein [Mass/volume] in Uri neOrdered By: Sarah Osuna on 03-14-2022 Protein (U) [Mass/Vol] 13 mg/dL 0-9 [facility] RBC Auto (Bld) [#/Vol]Ordere d By: Leah Huang on 03-14-2022 RBC (Bld) [#/Vol] 3.88 10*6/uL 3.90-5.60 [facility] Serum or plasma alanine vivas otransferase measurement without P-5'-P (enzymatic activiOrdered By: Leah Huang on 03-14-2022 ALT No additional P-5'-P [Catalytic activity/Vol] 35 U/L 10-[address] [facility] Serum or plasma albumin/glob ulin mass ratioOrdered By: Leah Huang on 03-14-2022 Albumin/Globulin [Mass ratio] 0.5 {ratio} [facility] Serum or plasma alkaline dilan sphatase measurement (enzymatic activity/volume)Ordered By: Leah Huang on 03-14-2022 ALP [Catalytic activity/Vol] 120 U/L 32-92 [facility] Serum or plasma aspartate am inotransferase measurement (enzymatic activity/volume)Ordered By: Leah Huang on 03-14-2022 AST [Catalytic activity/Vol] 36 U/L 10-42 [facility] Serum or plasma total biliru bin measurement (mass/volume)Ordered By: Leah Huang on 03-14-2022 Bilirubin [Mass/Vol] 1.0 mg/dL 0.3-1.2 [facility] Squamous epithelial cells de tection in urine sediment by light microscopyOrdered By: Sarah Osuna on 03-14-2022 Epithelial cells.squamous LM Ql (Urine sed) None seen [HPF] 0-2 [facility] Urea nitrogen [Mass/volume] in UrineOrdered By: Leah Huang on 03-14-2022 Urea nitrogen (U) [Mass/Vol] 454 mg/dL Not Estab. [facility] Comment on above: Performed at: [place] [id number] Door Cutter: Genaro Becerril PhD, Phone: [phone] Urine appearanceOrdered By: Sarah Osuna on 03-14-2022 Appearance (U) Clear Clear [facility] Urine bacteria detection by automated methodOrdered By: Sarah Osuna on 03-14-2022 Bacteria Auto Ql (U) None seen None Seen [facility] Urine colorOrdered By: Sarah Osuna on 03-14-2022 Color (U) Yellow Yellow [facility] Urine glucose measurement by automated test strip (mass/volume)Ordered By: Sarah Osuna on 03-14-2022 Glucose Auto test strip (U) [Mass/Vol] >=1000 mg/dL Normal [facility] Urine hemoglobin detection b y automated test stripOrdered By: Sarah Osuna on 03-14-2022 Hemoglobin Auto test strip Ql (U) 2+ Negative [facility] Urine leukocyte esterase det ection by automated test stripOrdered By: Sarah Osuna on 03-14-2022 Leukocyte esterase Auto test strip Ql (U) Negative Negative [facility] Urine nitrite detection by a utomated test stripOrdered By: Sarah Osuna on 03-14-2022 Nitrite Auto test strip Ql (U) Negative Negative [facility] Urine protein/creatinine rat ioOrdered By: Sarah Osuna on 03-14-2022 Protein/Creatinine (U) [Ratio] 169 mg/g{Cre} 0-200 [facility] Urine sodium measurement (mo les/volume)Ordered By: Leah Huang on 03-14-2022 Sodium (U) [Moles/Vol] 20 mmol/L [facility] Comment on above: No reference range e stablished Urobilinogen Auto test strip (U) [Mass/Vol]Ordered By: Sarah Osuna on 03-14-2022 Urobilinogen (U) [Mass/Vol] Normal mg/dL Normal [facility] Yeast detection in urine sed iment by light microscopyOrdered By: Sarah Osuna on 03-14-2022 Yeast LM Ql (Urine sed) Budding yeast [HPF] Non e Seen [facility] Comment on above: 1+ BUDDING YEAST pH Auto test strip (U)Ordere d By: Sarah Osuna on 03-14-2022 pH (U) 1.020 [pH] 1.001-1.030 [facility] pH (U) 5.5 [pH] 5.0-9.0 [facility] POINT OF CARE GLUCOSEon 01-10 Glucose [Mass/Vol] 161 mg/dL Critically high 74-106 [facility] Comment on above: Performed By: #### T , BMP #### [facility] [address] [address] [address] Ladan Diehl POINT OF CARE GLUCOSEon 01-09 Glucose [Mass/Vol] 358 mg/dL Critically high -106 [facility] Comment on above: Performed By: #### A 1C #### [facility] [address] [address] [address] Ladan Diehl Glucose [Mass/Vol] 279 mg/dL Critically high -106 [facility] Comment on above: Performed By: #### A 1C #### [facility] [address] [address] [address] Ladan Diehl Glucose [Mass/Vol] 247 mg/dL Critically high 74-106 [facility] Comment on above: Performed By: #### T SH, BMP #### [facility] [address] [address] [address] Ladan Diehl Glucose [Mass/Vol] 357 mg/dL Critically high 74-106 [facility] Comment on above: Performed By: #### A 1C #### [facility] [address] [address] [address] Ladan Diehl PROF CHEM 8 (BAS METB)on Anion gap [Moles/Vol] 11.1 mmol/L Normal [facility] Comment on above: Performed By: #### T STEFF, BMP #### [facility] [address] [place] [address] Dr. Ladan Diehl Calcium [Mass/Vol] 8.8 mg/dL Normal 8.5-10.1 [facility] Comment on above: Performed By: #### T STEFF, BMP #### [facility] [address] [address] [address] Ladan Diehl Chloride [Moles/Vol] 99 mmol/L Normal 98-107 [facility] Comment on above: Performed By: #### T SH, BMP #### [facility] [address] [place] [address] Dr. Ladan Diehl CO2 [Moles/Vol] 27.2 mmol/L Normal 21.0-32.0 [facility] Comment on above: Performed By: #### T STEFF, BMP #### [facility] [address] [address] [address] Ladan Diehl Creatinine [Mass/Vol] 1.59 mg/dL Critically high 0.70-1.30 [facility] Comment on above: Performed By: #### T STEFF, BMP #### [facility] [address] [place] [address] Dr. Ladan Diehl EGFR-AF PALAUAN 53 mL/min/1.73m2 Critically low >=60 [facility] Comment on above: Performed By: #### T STEFF, BMP #### [facility] [address] [address] [address] Ladan Diehl EGFR-NON AF PALAUAN 44 mL/min/1.73m2 Critically low >=60 [facility] Comment on above: Performed By: #### T SH, BMP #### [facility] [address] [address] [address] Ladan Diehl Glucose [Mass/Vol] 284 mg/dL Critically high 74-106 [facility] Comment on above: Performed By: #### T SH, BMP #### [facility] [address] [address] [address] Ladan Diehl Potassium [Moles/Vol] 4.2 mmol/L Normal 3.5-5.1 [facility] Comment on above: Performed By: #### T SH, BMP #### [facility] [address] [place] [address] Dr. Ladan Diehl Sodium [Moles/Vol] 133 mmol/L Critically low 136-145 Th [facility] Comment on above: Performed By: #### T SH, BMP #### [facility] [address] [place] [address] Dr. Ladan Diehl Urea nitrogen [Mass/Vol] 22.0 mg/dL Critically high 7.0-18 .0 [facility] Comment on above: Performed By: #### T SH, BMP #### [facility] [address] [place] [address] Dr. Ladan Diehl Urea nitrogen/Creatinine [Mass ratio] 13.8 mg/mg Normal [facility] Comment on above: Performed By: #### T SH, BMP #### [facility] [address] [place] [address] Dr. Ladan Diehl TROPONIN, HIGH SENSITIVITYon 01-24-2022 HSTROP 13.7 pg/mL Normal 4.0-76.1 [facility] Comment on above: Result Comment: CUT- OFF POINTS HAVE BEEN ESTABLISHED BASED ON THE FOURTH UNIVERSAL DEFINITIONS OF MYOCARDIAL INFARCTION. THE UPPER REFERENCE LIMIT (URL) OF TROPONIN, DEFINED THE 99TH PERCENTILE OF cTnI DISTRIBUTION IN A REFERENCE POPULATION, HAS BEEN CONFIRMED THE DECISION THRESHOLD FOR [place] DIAGNOSIS. Performed By: #### H STROPN #### [facility] [address] [place] [address] Dr. Ladan Diehl TSHon 01-24-2022 TSH 0.381 uIU/mL Normal 0.358-3.740 [facility] Comment on above: Performed By: #### T STEFF, BMP #### [facility] [address] [place] [address] Dr. Ladan Diehl US LIT DOP LEG [...] by: CAROL YIP Date: 2022-01-24 09:51 Normal [facility] BNPon 01-23-2022 Natriuretic peptide B (Bld) [Mass/Vol] 262.0 pg/mL Normal <=900.0 [facility] Comment on above: Performed By: #### A 1C #### [facility] [address] [place] [address] Dr. Ladan Diehl CBC AUTO DIFFon 01-23-2022 BASO # 0.1 103/ul Normal 0.0-0.1 [facility] Comment on above: Performed By: #### T STEFF, BMP #### [facility] [address] [place] [address] Dr. Ladan Diehl Basophils/100 WBC (Bld) 0.8 % Normal 0.2-2.0 [facility] Comment on above: Performed By: #### T STEFF, BMP #### [facility] [address] [place] [address] Dr. Ladan Diehl EO # 0.3 103/ul Normal 0.0-0.7 [facility] Comment on above: Performed By: #### T SH, BMP #### [facility] [address] [place] [address] Dr. Ladan Diehl Eosinophils/100 WBC (Bld) 4.4 % Normal 0.9-7.0 [facility] Comment on above: Performed By: #### T SH, BMP #### [facility] [address] [place] [address] Dr. Ladan Diehl Erythrocyte distribution width (RBC) [Ratio] 14.0 % Normal 11.0-15.0 [facility] Comment on above: Performed By: #### T SH, BMP #### [facility] [address] [place] [address] Dr. Ladan Diehl Hematocrit (Bld) [Volume fraction] 38.3 % Critically low 42.0-54.0 [facility] Comment on above: Performed By: #### T SH, BMP #### [facility] [address] [place] [address] Dr. Ladan Diehl Hemoglobin (Bld) [Mass/Vol] 12.0 g/dL Critically low 14.0-18.0 [facility] Comment on above: Performed By: #### T SH, BMP #### [facility] [address] [place] [address] Dr. Ladan Diehl IG # 0.03 10e3/ul Normal 0.00-0.03 [facility] Comment on above: Performed By: #### T SH, BMP #### [facility] [address] [place] [address] Dr. Ladan Diehl IG % 0.5 % Normal 0.0-0.5 [facility] Comment on above: Performed By: #### T SH, BMP #### [facility] [address] [place] [address] Dr. Ladan Diehl LYMPH # 1.2 103/ul Normal 1.2-3.8 [facility] Comment on above: Performed By: #### T SH, BMP #### [facility] [address] [place] [address] Dr. Ladan Diehl Lymphocytes/100 WBC (Bld) 20.2 % Critically low 20.5-60.0 [facility] Comment on above: Performed By: #### T SH, BMP #### [facility] [address] [place] [address] Dr. Ladan Diehl MANUAL DIFF REQ NO Normal [facility] Comment on above: Performed By: #### T SH, BMP #### [facility] [address] [place] [address] Dr. Ladan Diehl MCH (RBC) [Entitic mass] 29.6 pg Normal 25.9-34.0 [facility] Comment on above: Performed By: #### T SH, BMP #### [facility] [address] [place] [address] Dr. Ladan Diehl MCHC (RBC) [Mass/Vol] 31.3 g/dL Normal 29.9-35.2 [facility] Comment on above: Performed By: #### T SH, BMP #### [facility] [address] [place] [address] Dr. Ladan Diehl MCV (RBC) [Entitic vol] 94.6 fL Critically high 80.0-94 .0 [facility] Comment on above: Performed By: #### T SH, BMP #### [facility] [address] [place] [address] Dr. Ladan Diehl MONO # 0.7 103/ul Normal 0.3-0.8 [facility] Comment on above: Performed By: #### T SH, BMP #### [facility] [address] [place] [address] Dr. Ladan Diehl Monocytes/100 WBC (Bld) 10.7 % Normal 1.7-12.0 [facility] Comment on above: Performed By: #### T SH, BMP #### [facility] [address] [place] [address] Dr. Ladan Diehl NEUT # 3.9 103/ul Normal 1.4-6.5 [facility] Comment on above: Performed By: #### T SH, BMP #### [facility] [address] [place] [address] Dr. Ladan Diehl Neutrophils/100 WBC (Bld) 63.4 % Normal 43.0-75.0 [facility] Comment on above: Performed By: #### T SH, BMP #### [facility] [address] [address] [address] Ladan Diehl Platelet mean volume (Bld) [Entitic vol] 10.0 fL Normal 9.5-13.5 [facility] Comment on above: Performed By: #### T SH, BMP #### [facility] [address] [address] [address] Ladan Diehl PLT 171 103/ul Normal 150-450 [facility] Comment on above: Performed By: #### T SH, BMP #### [facility] [address] [place] [address] Dr. Ladan Diehl RBC 4.05 106/ul Critically low 4.70-6.10 [facility] Comment on above: Performed By: #### T SH, BMP #### [facility] [address] [place] [address] Dr. Ladan Diehl WBC 6.1 103/ul Normal 4.0-11.0 [facility] Comment on above: Performed By: #### T SH, BMP #### [facility] [address] [place] [address] Dr. Ladan Diehl CTA CHEST WO W CONon -15-2 022 CTA CHEST WO W CON EXAM: [...] XIN BUI Date: 2022-01-23 19:35 Normal [facility] Covid-19 PCR (CVDTB)on 01-09 SARS-CoV-2 (COVID-19) RNA MANJIT+probe Ql (Unsp spec) Not detected Normal NOT DETECTED [facility] Comment on above: Result Comment: When [...] for this test is supported by the [place] of Health and Human Service's declaration that [...] used). Performed By: #### A 1C #### [facility] [address] [address] [address] Ladan Diehl LACTATE/LACTIC ACIDon 2021 Lactate [Moles/Vol] 1.6 mmol/L Normal 0.4-1.9 [facility] Comment on above: Performed By: #### L ACT #### [facility] [address] [address] [address] Ladan Diehl PROF 14(COMP METB)on 022 Albumin [Mass/Vol] 2.7 g/dL Critically low 3.4-5.0 [facility] Comment on above: Performed By: #### A 1C #### [facility] [address] [place] [address] Dr. Ladan Diehl Albumin/Globulin [Mass ratio] 0.5 {ratio} Normal [facility] Comment on above: Performed By: #### A 1C #### [facility] [address] [place] [address] Dr. Ladan Diehl ALP [Catalytic activity/Vol] 120 U/L Critically high 46-116 [facility] Comment on above: Performed By: #### A 1C #### [facility] [address] [address] [address] Ladan Diehl ALT [Catalytic activity/Vol] 23 U/L Normal 16-63 [facility] Comment on above: Performed By: #### A 1C #### [facility] [address] [place] [address] Dr. Ladan Diehl Anion gap [Moles/Vol] 10.3 mmol/L Normal [facility] Comment on above: Performed By: #### A 1C #### [facility] [address] [place] [address] Dr. Ladan Diehl AST [Catalytic activity/Vol] 29 U/L Normal 15-37 [facility] Comment on above: Performed By: #### A 1C #### [facility] [address] [place] [address] Dr. Ladan Diehl Bilirubin [Mass/Vol] 1.0 mg/dL Normal 0.2-1.0 [facility] Comment on above: Performed By: #### A 1C #### [facility] [address] [place] [address] Dr. Ladan Diehl Calcium [Mass/Vol] 8.8 mg/dL Normal 8.5-10.1 [facility] Comment on above: Performed By: #### A 1C #### [facility] [address] [place] [address] Dr. Ladan Diehl Chloride [Moles/Vol] 101 mmol/L Normal 98-107 [facility] Comment on above: Performed By: #### A 1C #### [facility] [address] [address] [address] Ladan Diehl CO2 [Moles/Vol] 30.8 mmol/L Normal 21.0-32.0 [facility] Comment on above: Performed By: #### A 1C #### [facility] [address] [place] [address] Dr. Ladan Diehl Creatinine [Mass/Vol] 1.40 mg/dL Critically high 0.70-1.30 [facility] Comment on above: Performed By: #### A 1C #### [facility] [address] [place] [address] Dr. Ladan Diehl EGFR-AF PALAUAN >60 Normal >=60 [facility] Comment on above: Performed By: #### A 1C #### [facility] [address] [place] [address] Dr. Ladan Diehl EGFR-NON AF PALAUAN 51 mL/min/1.73m2 Critically low >=60 [facility] Comment on above: Performed By: #### A 1C #### [facility] [address] [place] [address] Dr. Ladan Diehl Globulin (S) [Mass/Vol] 5.3 g/dL Normal [facility] Comment on above: Performed By: #### A 1C #### [facility] [address] [place] [address] Dr. Ladan Diehl Glucose [Mass/Vol] 125 mg/dL Critically high 74-106 [facility] Comment on above: Performed By: #### A 1C #### [facility] [address] [place] [address] Dr. Ladan Diehl Potassium [Moles/Vol] 4.1 mmol/L Normal 3.5-5.1 [facility] Comment on above: Performed By: #### A 1C #### [facility] [address] [place] [address] Dr. Ladan Diehl Protein [Mass/Vol] 8.0 g/dL Normal 6.4-8.2 [facility] Comment on above: Performed By: #### A 1C #### [facility] [address] [place] [address] Dr. Ladan Diehl Sodium [Moles/Vol] 138 mmol/L Normal 136-145 [facility] Comment on above: Performed By: #### A 1C #### [facility] [address] [place] [address] Dr. Ladan Diehl Urea nitrogen [Mass/Vol] 20.0 mg/dL Critically high 7.0-18 .0 [facility] Comment on above: Performed By: #### A 1C #### [facility] [address] [place] [address] Dr. Ladan Diehl Urea nitrogen/Creatinine [Mass ratio] 14.3 mg/mg Normal [facility] Comment on above: Performed By: #### A 1C #### [facility] [address] [place] [address] Dr. Ladan Diehl PROTIMEon 01-23-2022 INR Coag (PPP) [Relative time] 1.02 {INR} Normal [facility] Comment on above: Performed By: #### P T, PTT #### [facility] [address] [place] [address] Dr. Ladan Diehl INR GUIDELINES SEE BELOW Normal [facility] Comment on above: Result Comment: KALI RED INR: 2.0 - 3.0 CONDITIONS NOT LISTED BELOW 2.5 - 3.5 FOR PROSTHETIC HEART VALVE REPLACEMENT 2.5 - 3.5 RECURRENT THROMBOSIS Performed By: #### P T, PTT #### [facility] [address] [place] [address] Dr. Ladan Diehl PT Coag (PPP) [Time] 11.0 s Normal 9.0-11.6 [facility] Comment on above: Performed By: #### P T, PTT #### [facility] [address] [place] [address] Dr. Ladan Diehl PTTon 01-23-2022 aPTT Coag (Bld) [Time] 27.6 s Normal 22.3-36.2 [facility] Comment on above: Performed By: #### P T, PTT #### [facility] [address] [place] [address] Dr. Ladan Diehl TROPONIN, HIGH SENSITIVITYon 01-23-2022 HSTROP 10.4 pg/mL Normal 4.0-76.1 [facility] Comment on above: Result Comment: CUT- OFF POINTS HAVE BEEN ESTABLISHED BASED ON THE FOURTH UNIVERSAL DEFINITIONS OF MYOCARDIAL INFARCTION. THE UPPER REFERENCE LIMIT (URL) OF TROPONIN, DEFINED THE 99TH PERCENTILE OF cTnI DISTRIBUTION IN A REFERENCE POPULATION, HAS BEEN CONFIRMED THE DECISION THRESHOLD FOR [place] DIAGNOSIS. Performed By: #### A 1C #### [facility] [address] [address] [address] ABD/PELV W CONon 01-20-[address] ABD/PELV W CON EXAMINATION: CT ABD/PELV [...] by: TANNER PEDRAZA Date: 2022-01-18 23:39 Normal [facility] XR CHEST 1 Von 01-19-2022 XR [...] ROSELIA RIVERA Date: 2022-01-18 22:16 Normal [facility] XR KNEE LT 4V or >on [...] JENNIFER CASTILLO Date: 2022-01-18 23:06 Normal [facility] CBC AUTO DIFFon 01-18-2022 BASO # 0.1 103/ul Normal 0.0-0.1 [facility] Comment on above: Performed By: #### C BC #### [facility] [address] [place] [address] Dr. Ladan Diehl Basophils/100 WBC (Bld) 0.8 % Normal 0.2-2.0 [facility] Comment on above: Performed By: #### C BC #### [facility] [address] [place] [address] Dr. Ladan Diehl EO # 0.4 103/ul Normal 0.0-0.7 [facility] Comment on above: Performed By: #### C BC #### [facility] [address] [place] [address] Dr. Ladan Diehl Eosinophils/100 WBC (Bld) 4.3 % Normal 0.9-7.0 [facility] Comment on above: Performed By: #### C BC #### [facility] [address] [place] [address] Dr. Ladan Diehl Erythrocyte distribution width (RBC) [Ratio] 14.4 % Normal 11.0-15.0 [facility] Comment on above: Performed By: #### C BC #### [facility] [address] [place] [address] Dr. Ladan Diehl Hematocrit (Bld) [Volume fraction] 37.2 % Critically low 42.0-54.0 [facility] Comment on above: Performed By: #### C BC #### [facility] [address] [address] [address] Ladan Diehl Hemoglobin (Bld) [Mass/Vol] 11.9 g/dL Critically low 14.0-18.0 [facility] Comment on above: Performed By: #### C BC #### [facility] [address] [address] [address] Ladan Diehl IG # 0.04 10e3/ul Critically high 0.00-0.03 [facility] Comment on above: Performed By: #### C BC #### [facility] [address] [address] [address] Ladan Diehl IG % 0.5 % Normal 0.0-0.5 [facility] Comment on above: Performed By: #### C BC #### [facility] [address] [place] [address] Dr. Ladan Diehl LYMPH # 2.2 103/ul Normal 1.2-3.8 [facility] Comment on above: Performed By: #### C BC #### [facility] [address] [place] [address] Dr. Ladan Diehl Lymphocytes/100 WBC (Bld) 26.2 % Normal 20.5-60.0 [facility] Comment on above: Performed By: #### C BC #### [facility] [address] [place] [address] Dr. Ladan Diehl MANUAL DIFF REQ NO Normal [facility] Comment on above: Performed By: #### C BC #### [facility] [address] [place] [address] Dr. Ladan Diehl MCH (RBC) [Entitic mass] 30.4 pg Normal 25.9-34.0 [facility] Comment on above: Performed By: #### C BC #### [facility] [address] [place] [address] Dr. Ladan Diehl MCHC (RBC) [Mass/Vol] 32.0 g/dL Normal 29.9-35.2 [facility] Comment on above: Performed By: #### C BC #### [facility] [address] [address] [address] Ladan Diehl MCV (RBC) [Entitic vol] 94.9 fL Critically high 80.0-94 .0 [facility] Comment on above: Performed By: #### C BC #### [facility] [address] [address] [address] Ladan Diehl MONO # 0.9 103/ul Critically high 0.3-0.8 [facility] Comment on above: Performed By: #### C BC #### [facility] [address] [address] [address] Ladan Diehl Monocytes/100 WBC (Bld) 10.3 % Normal 1.7-12.0 [facility] Comment on above: Performed By: #### C BC #### [facility] [address] [place] [address] Dr. Ladan Diehl NEUT # 5.0 103/ul Normal 1.4-6.5 [facility] Comment on above: Performed By: #### C BC #### [facility] [address] [place] [address] Dr. Ladan Diehl Neutrophils/100 WBC (Bld) 57.9 % Normal 43.0-75.0 [facility] Comment on above: Performed By: #### C BC #### [facility] [address] [place] [address] Dr. Ladan Diehl Platelet mean volume (Bld) [Entitic vol] 9.9 fL Normal 9.5-13.5 [facility] Comment on above: Performed By: #### C BC #### [facility] [address] [place] [address] Dr. Ladan Diehl PLT 180 103/ul Normal 150-450 [facility] Comment on above: Performed By: #### C BC #### [facility] [address] [place], [place] [id number] Dr. Ladan Diehl RBC 3.92 106/ul Critically low 4.70-6.10 [facility] Comment on above: Performed By: #### C BC #### [facility] [address] [place] [address] Dr. Ladan Diehl WBC 8.6 103/ul Normal 4.0-11.0 [facility] Comment on above: Performed By: #### C BC #### [facility] [address] [place] [address] Dr. Ladan Diehl PROF 14(COMP METB)on 022 Albumin [Mass/Vol] 2.6 g/dL Critically low 3.4-5.0 [facility] Comment on above: Performed By: #### C MP #### [facility] [address] [place] [address] Dr. Ladan Diehl Albumin/Globulin [Mass ratio] 0.5 {ratio} Normal [facility] Comment on above: Performed By: #### C MP #### [facility] [address] [place] [address] Dr. Ladan Diehl ALP [Catalytic activity/Vol] 184 U/L Critically high 46-116 [facility] Comment on above: Performed By: #### C MP #### [facility] [address] [place] [address] Dr. Ladan Diehl ALT [Catalytic activity/Vol] 24 U/L Normal 16-63 [facility] Comment on above: Performed By: #### C MP #### [facility] [address] [place] [address] Dr. Ladan Diehl Anion gap [Moles/Vol] 10.1 mmol/L Normal [facility] Comment on above: Performed By: #### C MP #### [facility] [address] [place] [address] Dr. Ladan Diehl AST [Catalytic activity/Vol] 22 U/L Normal 15-37 [facility] Comment on above: Performed By: #### C MP #### [facility] [address] [place] [address] Dr. Ladna Diehl Bilirubin [Mass/Vol] 0.5 mg/dL Normal 0.2-1.0 [facility] Comment on above: Performed By: #### C MP #### [facility] [address] [place] [address] Dr. Ladan Diehl Calcium [Mass/Vol] 8.6 mg/dL Normal 8.5-10.1 [facility] Comment on above: Performed By: #### C MP #### [facility] [address] [address] [address] Ladan Diehl Chloride [Moles/Vol] 101 mmol/L Normal 98-107 [facility] Comment on above: Performed By: #### C MP #### [facility] [address] [address] [address] Ladan Diehl CO2 [Moles/Vol] 30.9 mmol/L Normal 21.0-32.0 [facility] Comment on above: Performed By: #### C MP #### [facility] [address] [place] [address] Dr. Ladan Diehl Creatinine [Mass/Vol] 1.72 mg/dL Critically high 0.70-1.30 [facility] Comment on above: Performed By: #### C MP #### [facility] [address] [address] [address] Ladan Diehl EGFR-AF PALAUAN 49 mL/min/1.73m2 Critically low >=60 [facility] Comment on above: Performed By: #### C MP #### [facility] [address] [place] [address] Dr. Ladan Diehl EGFR-NON AF PALAUAN 40 mL/min/1.73m2 Critically low >=60 [facility] Comment on above: Performed By: #### C MP #### [facility] [address] [address] [address] Ladan Diehl Globulin (S) [Mass/Vol] 5.2 g/dL Normal [facility] Comment on above: Performed By: #### C MP #### [facility] [address] [address] [address] Ladan Diehl Glucose [Mass/Vol] 253 mg/dL Critically high 74-106 [facility] Comment on above: Performed By: #### C MP #### [facility] [address] [address] [address] Ladan Diehl Potassium [Moles/Vol] 4.0 mmol/L Normal 3.5-5.1 [facility] Comment on above: Performed By: #### C MP #### [facility] [address] [address] [address] Ladan Diehl Protein [Mass/Vol] 7.8 g/dL Normal 6.4-8.2 [facility] Comment on above: Performed By: #### C MP #### [facility] [address] [address] [address] Ladan Diehl Sodium [Moles/Vol] 138 mmol/L Normal 136-145 [facility] Comment on above: Performed By: #### C MP #### [facility] [address] [place] [address] Dr. Ladan Diehl Urea nitrogen [Mass/Vol] 30.0 mg/dL Critically high 7.0-18 .0 [facility] Comment on above: Performed By: #### C MP #### [facility] [address] [place] [address] Dr. Ladan Diehl Urea nitrogen/Creatinine [Mass ratio] 17.4 mg/mg Normal [facility] Comment on above: Performed By: #### C MP #### [facility] [address] [place] [address] Dr. Ladan Diehl Vital Signs Date Time Vital Sign Value Performing Clinician Facility 05-01-2022 06:00-0400 Diastolic blood pressure 58 mm[Hg] [facility] 05-01-2022 06:00-0400 Heart rate 89 /min [facility] 05-01-2022 06:00-0400 Respiratory rate 20 /min [facility] 05-01-2022 06:00-0400 SaO2% (BldA) [Mass fraction] 91 % [facility] Comment on above: 2 L NC at baseline 05-01-2022 06:00-0400 Systolic blood pressure 86 mm[Hg] [facility] 04-12-2022 15:01-0400 Body temperature 98.3 [degF] MD Ayden Freeman Work Phone: [facility] 04-12-2022 15:01-0400 Diastolic blood pressure 68 mm[Hg] MD Ayden Freeman Work Phone: [facility] 04-12-2022 15:01-0400 Heart rate 90 /min MD Ayden Freeman Work Phone: [facility] 04-12-2022 15:01-0400 Respiratory rate 20 /min MD Ayden Freeman Work Phone: [facility] 04-12-2022 15:01-0400 SaO2% (BldA) [Mass fraction] 92 % MD Ayden Freeman Work Phone: [facility] 04-12-2022 15:01-0400 Systolic blood pressure 130 mm[Hg] MD Ayden Freeman Work Phone: [facility] 04-12-2022 10:48-0400 Body height 177.8 cm MD Ayden Freeman Work Phone: [facility] 04-12-2022 10:48-0400 Body weight 154.22 kg MD Ayden Freeman Work Phone: [facility] 04-09-2022 12:00-0400 Diastolic blood pressure 81 mm[Hg] MD Ayden Freeman Work Phone: [facility] 04-09-2022 12:00-0400 Heart rate 99 /min MD Ayden Freeman Work Phone: [facility] 04-09-2022 12:00-0400 Inhaled oxygen flow rate 2 L/min MD Ayden Freeman Work Phone: [facility] 04-09-2022 12:00-0400 Respiratory rate 18 /min MD Ayden Freeman Work Phone: [facility] 04-09-2022 12:00-0400 SaO2% (BldA) [Mass fraction] 98 % MD Ayden Freeman Work Phone: [facility] 04-09-2022 12:00-0400 Systolic blood pressure 127 mm[Hg] MD Ayden Freeman Work Phone: [facility] 04-09-2022 05:22-0400 Body weight 162 kg MD Ayden Freeman Work Phone: [facility] 04-08-2022 20:00-0400 Inhaled oxygen concentration 30 % MD Ayden Freeman Work Phone: [facility] 04-08-2022 14:56-0400 Body height 177.8 cm MD Ayden Freeman Work Phone: [facility] 04-08-2022 08:11-0400 Body temperature 98 [degF] MD Ayden Freeman Work Phone: [facility] 03-16-2022 11:59-0400 Diastolic blood pressure 90 mm[Hg] MD Ayden Freeman Work Phone: [facility] 03-16-2022 11:59-0400 Heart rate 95 /min MD Ayden Freeman Work Phone: [facility] 03-16-2022 11:59-0400 Respiratory rate 18 /min MD Ayden Freeman Work Phone: [facility] 03-16-2022 11:59-0400 SaO2% (BldA) [Mass fraction] 95 % MD Ayden Freeman Work Phone: [facility] 03-16-2022 11:59-0400 Systolic blood pressure 147 mm[Hg] MD Ayden Freeman Work Phone: [facility] 03-16-2022 08:07-0400 Body temperature 97.8 [degF] MD Ayden Freeman Work Phone: [facility] 03-16-2022 06:00-0400 Body weight 163.5 kg MD Ayden Freeman Work Phone: [facility] 03-14-2022 17:24-0400 Body height 177.8 cm MD Ayden Freeman Work Phone: [facility] 03-14-2022 16:00-0400 Inhaled oxygen flow rate 1 L/min MD Ayden Freeman Work Phone: [facility] Encounters Encounter Date Encounter Type Care Provider Facility Start: 04-05-2024 ambulatory Facility:[facility] Underwood Start: 03-02-2024 ambulatory Facility:[facility] Start: 09-16-2023 End: 09-16-2023 ambulatory AYDEN FREEMAN [...] Start: 05-01-2022 End: 05-01-2022 ambulatory [facility] Start: 05-01-2022 End: 05-01-2022 Emergency department patient visit [facility] Triage, Treat and Transport Comment on above: Arrived Start: 04-24-2022 End: 04-30-2022 ambulatory UNKNOWN PROVIDER Facility:[facility] Start: 04-12-2022 End: 04-12-2022 Emergency department patient visit Ramesh yBrd Facility:[facility] Start: 04-12-2022 End: 04-12-2022 Emergency department patient visit MD Ayden Freeman Work Phone: [facility] Start: 04-10-2022 End: 04-17-2022 ambulatory UNKNOWN PROVIDER Facility:[facility] Start: 04-02-2022 End: 04-09-2022 Evaluation and management of inpatient MD Ayden Freeman Work Phone: [facility] Start: 03-15-[address] AYDEN Villafana ity:H1 Start: 03-14-2022 End: 03-14-2022 Patient encounter procedure JEFF CARLOS [facility] [place] Start: 03-14-2022 End: 03-16-2022 Evaluation and management of inpatient MD Ayden Freeman Work Phone: [facility] Start: 02-15-[address] AYDEN Villafana ity:H1 Start: 02-01-2022 End: 02-01-2022 ambulatory HINA DIOP . Facility:[facility]1 Start: 01-24-2022 End: 01-24-[address] CAROL YIP Facility:[facility] Start: 01-18-2022 End: 01-19-[address] MASON CASTRO Facility:[facility]1 Procedures Date Procedure Procedure Detail Performing Clinician Start: 12-19-[address] AYDEN FRIEND Comment on above: Performed By: #### [facility] #### [facility] [address] [place] [address] Dr. Ladan Diehl Start: 04-12-2022 Plain chest [...] Start: 05-11-2022 Influenza vaccination Influenza Vaccine (#1) [facility] Start: 04-12-2022 Plain chest X-ray XR chest 2V* [facility] Start: 04-12-2022 End: 04-12-2022 Emergency department patient visit Departed Emergency [facility] Start: 04-09-2022 [facility] Work Phone: Start: 04-09-2022 [facility] Work Phone: Start: 04-02-2022 End: 04-09-2022 Evaluation and management of inpatient Abrasion of elbow [facility] Start: 04-02-2022 CT angiography of thorax CT angio chest PE protocol [facility] Start: 04-02-2022 Hospital admission [facility] Work Phone: Start: 04-02-2022 X-ray of left knee XR knee LT 2V [facility] Start: 04-02-2022 Plain chest X-ray XR chest 1V portable [facility] Start: 04-02-2022 Plain X-ray of left hip XR hip LT min 2V(w/wo pelvis)* [facility] Start: 04-02-2022 Plain X-ray of left elbow XR elbow LT min 3V* [facility] Start: 03-16-2022 [facility] Work Phone: Start: 03-14-2022 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 [facility] Work Phone: Start: 03-14-2022 Hospital admission [facility] Work Phone: Start: 12-09-2021 Welcome to Medicare Visit (G0402) Welcome to Medicare Visit (G0402) [facility] Start: 11-28-2007 Measurement of occult blood in [...] Screening for malignant neoplasm of colon Colonoscopy [facility] Patient Education [facility] Work Phone: Patient referral [facility] Work Phone: Payers Date Payer Category Payer Self-pay [id number] 2021 Medicare [facility] E - MEDICARE UHC HMO SNP [id number] 2021-Present [phone] [address] [address] [place] [address] Medicare [id number] 2021 Private Health Insurance [id number] 2017 Unknown [id number] 1959 Medicaid [id number] 1959 Medicare [id number] 1957 Unknown [id number] 2.16.840.1.025613.3.579.2. 732 1957 Unknown [id number] 2.16.840.1.084769.3.579.2. 732 1957 Unknown [id number] 2.16.840.1.258788.3.579.2. 732 1957 Unknown [id number] 2.16.840.1.830979.3.579.2. 732 1957 Unknown [id number] 2.16.840.1.704806.3.579.2. 593 1957 Unknown [id number] 2.16.840.1.701249.3.579.2. 593 1957 Unknown [id number] 2.16.840.1.062333.3.579.2. 593 1957 Unknown [id number] 2.16.840.1.915329.3.579.2. 593 1957 Unknown [id number] 2.16.840.1.348598.3.579.2. 593 1957 Unknown [id number] 2.16.840.1.861157.3.579.2. 593 1957 Unknown [id number] 2.16.840.1.524592.3.579.2. 593 1957 Unknown [id number] 2.16.840.1.593153.3.579.2. 593 1957 Unknown [id number] 2.16.840.1.936569.3.579.2. 593 1957 Unknown [id number] 2.16.840.1.403449.3.579.2. 1259 Medicare Medicare [id number] Medicare Medicare Psych-IP Part A [id number] Medicare [place] [facility] PFFS [id number] Medicare [place] [employer] M[employer] [id number] Unknown [facility] [id number] Unknown [id number] 2.16.840.1.184040.3.579.2. 531 Social History Date Type Detail Facility Tobacco smoking status No Smoking Status Entered [facility] Sex Assigned At Male [facility] Start: 04-02-2022 End: 04-12-2022 Tobacco smoking status NEIS Never smoked tobacco (finding) [facility] Start: 1955 Sex Assigned At Male Óscar [facility] Tobacco smoking status [facility] Tobacco smoking consumption unknown [facility] Start: 1955 Sex Assigned At Not on file [facility] Medical Equipment Procedure Code Equipment Code Equipment [...] status 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 EMERGENCY TRIAGE, TREAT AND TRANSPORT (ET3) DOCUMENTATION OF TELEHEALTH VISIT Date / Time: 05/01/2022599 Name: Evelin Patterson : 1955 SSN: [id number] EMS Agency: [facility] [x] Verbal consent obtained [] [...] Peter Molina DO documented in this encounter [facility] 04-08-2022 Progress note Note Date/Time April 08, 2022 1:38pm [facility] [address] [place] [address] Hospitalist Progress Note Signed Patient: Evelin Patterson MR#: [id number] : 1955 Acct:[id number] Age/Sex: 66 / M Adm Date: 2 Loc: 3T Room: [address] [place] [address] Type: ADM INOo Attending Dr: Lupe Hernnadez MD Copies to: ~ Date of Service: [...] Hypothyroidism: Plan Patient currently awaiting placement to shelter facility. Remains in normal sinus rhythm. He [...] <Electronically signed by Lupe Hernandez MD> 04/08/221337 [facility] Work Phone: 1(397) 780-501008-28-2022 Discharge summary Author Luke Moran [facility] April 07, 2022 4:16pm Note Date/Time April 05, 2022 10 :05am [facility] [address] [place], [place] [id number] Discharge Summary Signed with Addenda Patient: Evelin Patterson MR#: [id number] : 1955 Acct:[id number] Age/Sex: 66 / M Adm Date: 2 Loc: 3T Room: [address] [place] [address]: Luke Moran MD Copies to: [...] discharged home in stable condition to a shelter facility. Medical therapy was adjusted as noted [...] 10:24: POC Glucose 271 04/03/22 07:34: Free Bernie LC, Quant 93.9 H, Free Lambda LC, Quant 61.6 H, Free Bernie/Lambda Ratio 1.52 Exam Physical Exam Vital Signs: Temp Pulse Resp BP Pulse Ox O2 Del Method O2 Flow Rate 97.9 F 85 20 134/76 90 L Room Air 2 04/05/22 08:00 04/05/22 08:00 04/05/22 08:00 04/05/22 08:00 04/05/22 08:00 04/05/22 08:00 04/05/22 08:00 FiO2 30 04/04/22 22:34 Discharge Plan Discharge Plan Patient Disposition: Care Home Facility Activity: Ambulate as Tolerated Diet: Diabetic and Low-Sodium Additional Instructions: Please have company providing CPAP machine fit the patient with a mask that he can tolerate. Use a CPAP of 8 whenever asleep until the sleep study performed. Care Home Facility to manage care: - Full code [...] levothyroxine 200 mcg tablet 200 mcg PO DAILY.629 triamcinolone acetonide 0.1 % Lotion 1 applic [...] Instructions: Sliding Scale ACHS Other Ambulatory Orders: PIANO ASSEMBLER polysom procedure (Routine) Timeframe: 3 Weeks Location: Determined by Patient Ordered By: Luke Moran Follow Up: [facility] Sleep Lab [Outside] ([facility] Sleep Lab or Central Scheduling will call you to arrange date/time for sleep study. ) Documented By: Luke Moran MD 04/07/22 0959 Signed By: <Electronically signed by Luke Moran MD> 04/07/22 3803 [facility] Work Phone: 1(520) 739-372008-27-2022 Progress note Author Luke Moran [facility] April 06, 2022 2:50pm Note Date/Time April 06, 2022 2: 50pm [facility] [address] [place] [address] Hospitalist Progress Note Signed Patient: Evelin Patterson MR#: [id number] : 1955 Acct:[id number] Age/Sex: 66 / M Adm Date: 2 Loc: Room: [address] [place] [address] Type: ADM INOo Attending Dr: Luke Moran [...] signed by Luke Moran MD> 04/06/22 1450 [facility] Work Phone: 1([phone]) 510-121108-25-2022 Progress note Author Luke Moran [facility] April 04, 2022 4:25pm Note Date/Time April 04, 2022 4: 25pm [facility] [address] [place] [address] Hospitalist Progress Note Signed Patient: Evelin Patterson MR#: [id number] : 1955 Acct:[id number] Age/Sex: 66 / M Adm Date: 2 Loc: Room: [address] [place] [address] Type: ADM INOo Attending Dr: Luke Moran [...] <Electronically signed by Luke Moran MD> 04/04/221624 [facility] Work Phone: 1(516) 318-593108-24-2022 Progress note Author Luke Moran [facility] April 03, 2022 2:05pm Note Date/Time April 03, 2022 2: 05pm [facility] [address] [place] [address] Hospitalist Progress Note Signed Patient: Evelin Patterson MR#: [id number] : 1955 Acct:[id number] Age/Sex: 66 / M Adm Date: 2 Loc: Room: [address] [place] [address] Type: ADM INOo Attending Dr: Luke Moran [...] Administration Flush Documented By: Luke Moran MD 04/03/221403 Signed By: <Electronically signed by Luke Moran MD> 04/03/22 1405 [facility] Work Phone: 1(999) 936-811608-23-2022 History and physical note Author Luke Moran [facility] April 02, 2022 7:48pm Note Date/Time April 02, 2022 7: 45pm [facility] [address] [place] [address] Hospitalist H&P Signed Patient: Evelin Patterson MR#: [id number] : 1955 Acct:[id number] Age/Sex: 66 / M Adm Date: 2 Loc: ER Room: Type: [facility] ER Attending Dr: Copies to: MD Jair Connolly, DO Ayden Freeman MD~ HPI DATE OF EXAMINATION: 04/02/22 HISTORY [...] Type: None Social History Comments: Lives in [facility] in [facility] Medications and Allergies Allergies metformin Adverse [...] gauge and blood glucose strips combo pack (Za Lancets) #120 ea 03/16/22 [Rx] pen needle, [...] % (Auto) 8.7 % (.) 04/02/22 17:51 [place] % (Auto) 12.2 % (.) 04/02/22 17:51 Eos % (Auto) 2.4 % (.) 04/02/22 17:51 Baso % (Auto) 0.6 % (.) 04/02/22 17:51 Neut # (Auto) 6.4 x10E3/uL (1.8-7.7) 04/02/22 17:51 Lymph # (Auto) 0.7 x10E3/uL (1.00-4.8) L 04/02/22 17:51 [place] # (Auto) 1.0 x10E3/uL (0.0-0.8) H 04/02/22 [...] <Electronically signed by Luke Moran MD> 04/02/221947 [facility] Work Phone: 1(562) 229-329208-06-2022 Discharge summary Author Xin Phan [facility] March 16, 2022 9:37am Note Date/Time March 16, 2022 9:3 7am [facility] [address] [place] [address] Discharge Summary Signed Patient: Evelin Patterson MR#: [id number] : 1955 Acct:[id number] Age/Sex: 66 / M Adm Date: 2 Loc: Room: [address] [place] [address]: Xin Phan MD Copies to: [...] anxiety and depression who was transferred from [facility] for acute kidney injury.? Patient presented with generalized weakness and disorientation at [facility]. He was noted to have [...] COVID, patient was alert oriented x3 at [facility], patient states that he has been [...] untreated sleep apnea Instructions: Blood Glucose Monitoring, [facility] COVID-19 Discharge Instructions Prescriptions: New [...] signed by Xin Phan MD> 03/16/22 0937 [facility] Work Phone: 1(763) 547-542408-05-2022 Progress note Author Sarah Osuna [facility] March 15, 2022 3:43pm Note Date/Time March 15, 2022 3:3 7pm [facility] [address] [place] [address] Nephrology Progress Note Signed Patient: Evelin Patterson MR#: [id number] : 1955 Acct:[id number] Age/Sex: 66 / M Adm Date: 2 Loc: Room: [address] [place] [address] Type: ADM IN Attending Dr: Xin Phan MD Copies to: ~ Date of Service: 03/15/2022 Subjective Subjective Narrative: This is 66-year-old male patient with a past medical history of morbid obesity, endocarditis, paroxysmal A. fib, diabetes type 2, anxiety and depression and chronic kidney disease stage III. Patient presented to [facility] with feeling weak and disoriented for 2 weeks which has gotten worse. Patient has been having cough with decreased appetite and loss of taste for a week. Lab at [facility] shows acute kidney injury with creatinine up to 4.3 mg/dL along with hyperglycemia with initial blood glucose level more than 400. Patient's blood pressure was in the 80s at [facility]. Patient was given IV fluid and transferred [...] Tablet) 500 mg PO DAILY [facility] Stop: 03/14/23 08:59 Last Admin: 03/15/22 08:34 Dose: 500 mg Dexamethasone 2 mg/ (Dexamethasone 4 mg) 6 mg PO DAILY [facility] Stop: 03/22/23 08:59 Last Admin: 03/15/22 [...] Ml) 1,000 mls @ 100 mls/hr IV .[id number] Stop: 03/14/23 01:59 Last Admin: 03/15/22 06:46 Dose: 100 mls/hr Insulin Aspart (Insulin Aspart 300 Units/3 Ml Insuln.Pen) 0 units SUBCUT TID.WM.HS JOSIANE; Protocol Stop: 03/14/23 07:59 Last Admin: 03/15/22 12:06 Dose: 9 units Insulin Detemir (Insulin Detemir 300 Units/3 Ml Insuln.Pen) 40 units SUBCUT DAILY.WITH.BKFAST [facility] Stop: 03/16/23 07:59 Zinc Sulfate (Zinc Sulfate 220 Mg Capsule) 220 mg PO DAILY [facility] Stop: 03/14/23 08:59 Last Admin: 03/15/22 [...] question Documented By: Sarah Osuna MD 03/15/22 8028 Signed By: <Electronically signed by Sarah Osuna MD> 03/15/22 1540 [facility] Work Phone: 1(164) 104-901308-05-2022 Progress note Author Xin Phan [facility] March 15, 2022 12:44pm Note Date/Time March 15, 2022 12: 44pm [facility] [address] [place] [address] Hospitalist Progress Note Signed Patient: Evelin Patterson MR#: [id number] : 1955 Acct:[id number] Age/Sex: 66 / M Adm Date: 2 Loc: Room: [address] [place] [address] Type: ADM IN Attending Dr: Xin Phan MD Copies to: ~ Date of Service: 03/15/2022 Subjective Subjective Narrative: Patient is a 66-year-old male, with a PMHx of Morbid obesity, endocarditis in August of this year, atrial fibrillation, type 2 diabetes, hypertension, liver cirrhosis, anxiety and depression who was transferred from [facility] for acute kidney injury. Patient presented with generalized weakness and disorientation at [facility]. He was noted to have [...] headache or dizziness. No fevers Paperwork from [facility] reviewed, chest x-ray with no [...] secondary to poor oral intake. Presented at [facility] with low blood pressures in the 80s. ?Creatinine at [facility] 4.34. Baseline creatinine ~1.4 - [...] noncompliance to diabetic diet ?Blood sugar at [facility] was in the 400s ? [...] signed by Xin Phan MD> 03/15/22 1244 [facility] Work Phone: 1(345) 577-497608-04-2022 Progress note Author Renato Looney [facility] March 14, 2022 2:14pm Note Date/Time March 14, 2022 2:1 4pm [facility] [address] [place] [address] Progress Note Signed Patient: Evelin Patterson MR#: [id number] : 1955 Acct:[id number] Age/Sex: 66 / M Adm Date: 2 Loc: Room: [address] [place] [address] Type: ADM IN Attending Dr: Renato Looney MD Copies to: ~ Date of Service: 03/14/2022 Progress Narrative Note PROGRESS NOTE Progress Note: Patient seen and evaluated by sole rounding machine operator early this morning and also by myself. Briefly, patient is a 66-year-old male past medical history significant for obesity, atrial fibrillation, hypertension, diabetes, liver cirrhosis, mood disorder and recent endocarditis infection who presented to [facility] facility due to generalized weakness found to have COVID-19 and acute kidney injury and was transferred to [facility] for further evaluation and management. [...] <Electronically signed by Renato Looney MD> 03/14/22 1415 [facility] Work Phone: 1(910) [phone] Consult note Author Sarah Osuna [facility] March 14, 2022 12:30pm Note Date/Time March 14, 2022 12: 30pm [facility] [address] [place] [address] Nephrology Consult Note Signed Patient: Evelin Patterson MR#: [id number] : 1955 Acct:[id number] Age/Sex: 66 / M Adm Date: 2 Loc: Room: [address] [place] [address] Type: ADM IN Attending Dr: Renato Looney [...] kidney disease stage III. Patient presented to [facility] with feeling weak and disoriented for 2 weeks which has gotten worse. Patient has been having cough with decreased appetite and loss of taste for a week. Lab at [facility] shows acute kidney injury with creatinine up to 4.3 mg/dL along with hyperglycemia with initial blood glucose level more than 400. Patient's blood pressure was in the 80s at [facility]. Patient was given IV fluid and transferred [...] Type: None Social History Comments: Lives in [facility] in [facility] Medications & Allergies Allergies metformin Adverse [...] Tablet) 500 mg PO DAILY [facility] Stop: 03/14/23 08:59 Last Admin: 03/14/22 08:34 Dose: 500 mg Dexamethasone 2 mg/ (Dexamethasone 4 mg) 6 mg PO DAILY [facility] Stop: 03/22/23 08:59 Last Admin: 03/14/22 [...] Ml) 1,000 mls @ 100 mls/hr IV .[id number] Stop: 03/14/23 01:59 Last Admin: 03/14/22 03:26 Dose: 100 mls/hr Insulin Aspart (Insulin Aspart 300 Units/3 Ml Insuln.Pen) 0 units SUBCUT TID.WM.HS [facility]; Protocol Stop: 03/14/23 07:59 Last Admin: 03/14/22 12:06 Dose: Not Given Insulin Detemir (Insulin Detemir 300 Units/3 Ml Insuln.Pen) 35 units SUBCUT DAILY.WITH.BKFAST [facility] Stop: 03/14/23 07:59 Last Admin: 03/14/22 08:34 Dose: 35 units Zinc Sulfate (Zinc Sulfate 220 Mg Capsule) 220 mg PO DAILY [facility] Stop: 03/14/23 08:59 Last Admin: 03/14/22 [...] Michael Tinajero M.D.03/14/2022 8:24 AM Dictation Location: [place] [address] Any impression(s) listed above is documentation that [...] <Electronically signed by Sarah Osuna MD> 03/14/22 4280 [facility] Work Phone: 1(707) 701-575808-04-2022 History and physical note Author Mary Jane Riley [facility] March 14, 2022 6:40am Note Date/Time March 14, 2022 2:0 2am [facility] [address] [place] [address] Hospitalist H&P Signed Patient: Evelin Patterson MR#: [id number] : 1955 Acct:[id number] Age/Sex: 66 / M Adm Date: 2 Loc: Room: 8M9164-6 Type: ADM IN Attending Dr: Mary Jane Hanna MD Copies to: MD Leah Marin, KATT Freeman MD~ HPI DATE OF EXAMINATION: 03/14/22 CHIEF COMPLAINT: FRANC HISTORY OF PRESENT ILLNESS: Patient is a 66-year-old male, with a PMHx of Morbid obesity, endocarditis in August of this year, atrial fibrillation, type 2 diabetes, hypertension, liver cirrhosis, anxiety and depression who was transferred from [facility] for acute kidney injury. Patient presented with generalized weakness and disorientation at [facility]. He was noted to have [...] headache or dizziness. No fevers Paperwork from [facility] reviewed, chest x-ray with no acute cardiopulmonary process. Sodium 129. Potassium 3.3. Creatinine 2.52. WBC 6.8. Hemoglobin 12.5. Glucose 4.34. Patient will be admitted by the hospitalist team for further evaluation and management. Review of Systems Review of Systems Review of systems: 10 point review of systems obtained, negative unless noted in the HPI or below [facility] Medical History Abdominal mass Anxiety Arthritis Back pain Cirrhosis Colonoscopy planned Deviated nasal septum Diabetes mellitus, type 2 Eczema History of left heart catheterization Pneumonia Surgical History History of cholecystectomy History of hydrocelectomy History of lithotripsy History of nasal surgery Family History Mother Cancer Social History Smoking Status: Never smoker Substance Use Type: None Social History Comments: Lives in [facility] in [facility] Medications and Allergies Allergies metformin Adverse [...] secondary to poor oral intake. Presented at [facility] with low blood pressures in the 80s. ?Creatinine at [facility] 4.34. Baseline creatinine ~1.4 ?Urine sodium, creatinine, urea pending ? Urine output monitoring ? Start IV fluids ? Hold home lisinopril and renally adjust medications ?Consider renal ultrasound if no improvement ? Nephrology consult ?Monitor BMP COVID-19 positive -unvaccinated. ? Presented with productive cough, hypoxia, loss of taste and generalized weakness ? Afebrile, no leukocytosis ? Chest x-ray from [facility] did not show any acute [...] noncompliance to diabetic diet ?Blood sugar at [facility] was in the 400s ?Basal [...] the plan of care and confirmed the resident's/wireless internet installer/medical student's dictation/written note. Patient is a 66-year-old [...] by Mary Jane Hanna MD> 03/14/22 0640 [facility] Work Phone: 1([phone]) [phone] Progress note Author Lupe Hernandez [facility] April 09, 2022 3:32pm Note Date/Time April 09, 2022 1: 08pm [facility] [address] [place] [address] Hospitalist Progress Note Signed with Addenda Patient: Evelin Patterson MR#: [id number] : 1955 Acct:[id number] Age/Sex: 66 / M Adm Date: 2 Loc: Room: [address] [place] [address] Type: DIS INOo Attending Dr: Lupe Hernandez MD Copies to: ~ ADDENDUM1 Patient was personally seen by me on the day of encounter, reviewed his history and performed long elements of exam and formulated the plan of care and confirmedthe residents note below. Unfortunately patient has been denied by insurance for shelter facility after peer to peer. He will [...] to thrive, paroxysmal A. fib, CKD 3, fbq-ufodqto-nmvqhfpay diabetes, CHF is being monitored on the floor while a mpyw-gv-uwnj was had with regards to the patient's discharge to a shelter facility. Insurance company has denied this coverage [...] agreed the patient would do well at shelter facility. Documented By: Allen Perez DO, RES 2 1302 Signed By: <Electronically signed by RES Allen Perez> 04/09/22 1308 <Electronically signed by Lupe Hernandez MD> 04/09/22 1531 [facility] Work Phone: Discharge summary Author Luke Moran [facility] April 07, 2022 4:16pm Note Date/Time April 05, 2022 10 :05am [facility] [address] [place] [address] Discharge Summary Signed with Addenda Patient: Evelin Patterson MR#: [id number] : 1955 Acct:[id number] Age/Sex: 66 / M Adm Date: 2 Loc: Room: [address] [place] [address]: Luke Moran MD Copies to: [...] discharged home in stable condition to a shelter facility. Medical therapy was adjusted as noted [...] 10:24: POC Glucose 271 04/03/22 07:34: Free Bernie LC, Quant 93.9 H, Free Lambda LC, Quant 61.6 H, Free Bernie/Lambda Ratio 1.52 Exam Physical Exam Vital Signs: Temp Pulse Resp BP Pulse Ox O2 Del Method O2 Flow Rate 97.9 F 85 20 134/76 90 L Room Air 2 04/05/22 08:00 04/05/22 08:00 04/05/22 08:00 04/05/22 08:00 04/05/22 08:00 04/05/22 08:00 04/05/22 08:00 FiO2 30 04/04/22 22:34 Discharge Plan Discharge Plan Patient Disposition: Care Home Facility Activity: Ambulate as Tolerated Diet: Diabetic and Low-Sodium Additional Instructions: Please have company providing CPAP machine fit the patient with a mask that he can tolerate. Use a CPAP of 8 whenever asleep until the sleep study performed. Care Home Facility to manage care: - Full code [...] Qty: 150 0RF Rx Instructions: As Directed ([facility]) Gojji Lancet-Glucose Test Strp 30 gauge Combo [...] Instructions: Sliding Scale ACHS Other Ambulatory Orders: PIANO ASSEMBLER polysom procedure (Routine) Timeframe: 3 Weeks Location: Determined by Patient Ordered By: Luke Moran Follow Up: [facility] Sleep Lab [Outside] ([facility] Sleep [facility] or Central Scheduling will call you to arrange date/time for sleep study. ) Documented By: Luke Moran MD 04/07/22 0959 Signed By: <Electronically signed by Luke Moran MD> 04/07/22 1610 [facility] Work Phone: Evaluation + Plan note No data available for this section [facility] Evaluation note* Diagnosis Onset Date Resolution Status FRANC (acute kidney injury) ac [place] Chronic kidney disease, stage III (moderate) acute COVID acute Diabetes acute Hyperglycemia acute Hypertension acute Hyponatremia acute Abrasion of elbow acute CHF (congestive heart failure) acute Diabetes mellitus, type 2 ac [place] Failure to thrive acute Fall acute Hypergammaglobulinemia acute Hypothyroidism acute Hypoxemia acute Morbid obesity due to excess calories acute Obstructive sleep apnea acut e Unable to care for self acut e [facility] Work Phone: Evaluation note* Diagnosis Hypotension, unspecified hypotension type- Primary Fall, initial encounter Refusal of treatment Surgical or other procedure not carried out because of patient's decision documented in this encounter [facility] available[facility] Work Phone: Hospital Discharge instructions No data available for this section [facility] Hospital Discharge instructionsAmbulatory Orders* Initiate Home Health Time Frame: 04/09/22, Location: Determined By Patient Additional Instructions Please wear home oxygen at 2l at all times. HOME HEALTH TO MANAGE: Nursing/PT/OT/Aide/Account Executive Trainee to eval and treat Monitor VS per protocol Maintain home oxygen at 2l continuous *Oxygen therapy is new, educate patient on Monitor Respiratory assessment Assist with medication management and provide medication education Assist with glucose control Skin care TID: *Theraworx protect to bilateral groin and abdominal fold redness. *Educate patient on Provide education on high risk fall precautions [facility] Work Phone: Hospital Discharge instructions Additional Instructions If your symptoms return/worsen or you develop any further concerns or symptoms please see your doctor or return to the emergency department immediately.[facility] Work Phone: Progress note No data available for this section [facility] Progress note Author Sarah Osuna [facility] March 16, 2022 12:40pm Note Date/Time March 16, 2022 12: 36pm [facility] [address] [place] [address] Nephrology Progress Note Signed Patient: Evelin Patterson MR#: [id number] : 1955 Acct:[id number] Age/Sex: 66 / M Adm Date: 2 Loc: Room: [address] [place] [address] Type: ADM IN Attending Dr: Xin Phan MD Copies to: ~ Date of Service: 03/16/2022 Subjective Subjective Narrative: This is 66-year-old male patient with a past medical history of morbid obesity, endocarditis, paroxysmal A. fib, diabetes type 2, anxiety and depression and chronic kidney disease stage III. Patient presented to [facility] with feeling weak and disoriented for 2 weeks which has gotten worse. Patient has been having cough with decreased appetite and loss of taste for a week. Lab at [facility] shows acute kidney injury with creatinine up to 4.3 mg/dL along with hyperglycemia with initial blood glucose level more than 400. Patient's blood pressure was in the 80s at [facility]. Patient was given IV fluid and transferred [...] 5 Mg Tablet) 5 mg PO DAILY [facility] Stop: 03/15/23 15:59 Last Admin: 03/16/22 [...] Vial) 5,000 unit SUBCUT Q12HR [facility] Stop: 03/14/23 08:59 Last Admin: 03/16/22 08:09 Dose: Not Given Insulin Aspart (Insulin Aspart 300 Units/3 Ml Insuln.Pen) 0 units SUBCUT TID.WM.HS [facility]; Protocol Stop: 03/14/23 07:59 Last Admin: 03/16/22 11:57 Dose: 8 units Insulin Detemir (Insulin Detemir 300 Units/3 Ml Insuln.Pen) 40 units SUBCUT DAILY.WITH.BKFAST [facility] Stop: 03/16/23 07:59 Last Admin: 03/16/22 08:10 Dose: 40 units Zinc Sulfate (Zinc Sulfate 220 Mg Capsule) 220 mg PO DAILY [facility] Stop: 03/14/23 08:59 Last Admin: 03/16/22 [...] physician into a diagnostic report(s) for Evelin Adrian Patterson. I have reviewed the report(s) and [...] signed by Sarah Osuna MD> 03/16/22 1240 [facility] Work Phone: Progress note Author Luke Moran [facility] April 03, 2022 2:05pm Note Date/Time April 03, 2022 2: 05pm [facility] [address] [place] [address] Hospitalist Progress Note Signed Patient: Evelin Patterson MR#: [id number] : 1955 Acct:[id number] Age/Sex: 66 / M Adm Date: 2 Loc: Room: [address] [place] [address] Type: ADM INOo Attending Dr: Luke Moran [...] Administration Flush Documented By: Luke Moran MD 04/03/221403 Signed By: <Electronically signed by Luke Moran MD> 04/03/22 140 [facility] Work Phone: Progress note Author Luke Moran [facility] April 04, 2022 4:25pm Note Date/Time April 04, 2022 4: 25pm [facility] [address] [place] [address] Hospitalist Progress Note Signed Patient: Evelin Patterson MR#: [id number] : 1955 Acct:[id number] Age/Sex: 66 / M Adm Date: 2 Loc: 3T Room: [address] [place] [address] Type: ADM INOo Attending Dr: Luke Moran [...] <Electronically signed by Luke Moran MD> 04/04/221624 [facility] Work Phone: Progress note Author Luke Moran [facility] April 06, 2022 2:50pm Note Date/Time April 06, 2022 2: 50pm [facility] [address] [place] [address] Hospitalist Progress Note Signed Patient: Evelin Patterson MR#: [id number] : 1955 Acct:[id number] Age/Sex: 66 / M Adm Date: 2 Loc: Room: [address] [place] [address] Type: ADM INOo Attending Dr: Luke Moran [...] signed by Luke Moran MD> 04/06/22 1450 [facility] Work Phone: Progress note Author Lupe Hernandez [facility] April 08, 2022 1:38pm Note Date/Time April 08, 2022 1: 38pm [facility] [address] [place] [address] Hospitalist Progress Note Signed Patient: Evelin Patterson MR#: [id number] : 1955 Acct:[id number] Age/Sex: 66 / M Adm Date: 2 Loc: Room: [address] [place] [address] Type: ADM INOo Attending Dr: Luep Hernandez MD Copies to: ~ Date of [...] Hypothyroidism: Plan Patient currently awaiting placement to shelter facility. Remains in normal sinus rhythm. He [...] signed by Lupe Hernandez MD> 04/08/22 1338 [facility] Work Phone: Chief Complaint and [...] Status: Inactive Member Role Status Dates Ramesh Ohquan , Emergency Provider Active Ayden Freeman MD Primary Care Provider Active (unrecognized sect ion and content) No Status Records FoundNo Status Records FoundNo Status Records FoundNo Status Records FoundNo Status Records Found INFORMATION SOURCE (unrecogn ized section and content) DATE CREATED AUTHOR 05/08/2022 [employer] DATE CREATED AUTHOR AUTHOR'S ORGANIZ ATION 12/23/2022 [facility] DATE CREATED AUTHOR AUTHOR'S ORGANIZ ATION 04/12/2023 [facility] DATE CREATED AUTHOR AUTHOR'S ORGANIZ ATION 09/17/2023 [facility] DATE CREATED AUTHOR AUTHOR'S ORGANIZ ATION 04/10/2024 [facility] Reason for Visit (unrecogniz ed [...] BE BASED ON THE PRIMARY CLINICAL RECORDS. [employer] provides no warranty or guarantee of the accuracy or completeness of information in this document.
[2024-04-14 14:13] LABS: Basophils Absolute Auto 0.1 10^3/uL (0.0-0.1); Basophils Percent Auto 1.5 % (0.2-2.0); Eosinophils Absolute Auto 0.5 10^3/uL (0.0-0.7); Eosinophils Percent Auto 7.4 % (0.9-7.0); Hematocrit 36.2 % (42.0-54.0); Hemoglobin 11.7 g/dL (14.0-18.0); Immature Granulocytes Abs Auto 0.02 10^3/uL (0.00-0.03); Immature Granulocytes Pct Auto 0.3 % (0.0-0.5); Lymphocytes Absolute Auto 1.7 10^3/uL (1.2-3.8); Lymphocytes Percent Auto 25.8 % (20.5-60.0); Mean Corpuscular HGB Conc 32.3 g/dL (29.9-35.2); Mean Corpuscular Hemoglobin 29.1 pg (25.9-34.0); Mean Platelet Volume 11.3 fL (9.5-13.5); Monocytes Absolute Auto 0.5 10^3/uL (0.3-0.8); Monocytes Percent Auto 8.2 % (1.7-12.0); Neutrophils Absolute Auto 3.8 10^3/uL (1.4-6.5); Neutrophils Percent Auto 56.8 % (43.0-75.0); Platelet Count 185 10^3/uL (150-450); Red Blood Count 4.02 10^6/uL (4.70-6.10); White Blood Count 6.6 10^3/uL (4.0-11.0)
[2024-04-14 14:27] LABS: Anion Gap 11.9; BUN Creatinine Ratio 12.4; C Reactive Protein 0.75 mg/dL (<=0.50); Calcium 8.6 mg/dL (8.5-10.1); Carbon Dioxide 26.4 mmol/L (21.0-32.0); Chloride 101 mmol/L (98-107); Estimated GFR (African America >60 (>=60); Estimated GFR (Non-African Ame 52 (>=60); Glucose 230 mg/dL (74-106); Potassium 3.3 mmol/L (3.5-5.1); Sodium 136 mmol/L (136-145)
[2024-04-14 14:32] LABS: Erythrocyte Sedimentation Rate 123 mm/hr (<=20)
[2024-04-14 14:42] LABS: Lactate/Lactic Acid 2.1 mmol/L (0.4-2.0)
[2024-04-14 14:54] VITALS: PULSE 87; TEMP 37.3; O2SAT 99
== END 2024-04-14 15:01 | disposition home or self-care (01) ==
PROVIDERS: Physician Assistant; Emergency Provider Emergency Medicine; PCP Nurse Practitioner Family
DX: L02.414 Cutaneous abscess of left upper limb (principal); E11.9 Type 2 diabetes mellitus without complications; Z79.4 Long term (current) use of insulin; R50.9 Fever, unspecified
CPT/HCPCS: 36415; 80048; 83605; 85025; 85652; 86140; 87070; 87075; 87150; 87186; 99283

== ENCOUNTER 2024-06-29 14:22 | Outpatient (OUT) | payer MEDICARE, MEDICAID, SELFPAY ==
[2024-06-29 14:51] LABS: Alanine Aminotransferase 27 U/L (16-63); Albumin Globulin Ratio 0.5; Albumin Level 2.9 g/dL (3.4-5.0); Alkaline Phosphatase 169 U/L (46-116); Anion Gap 14.2; BUN Creatinine Ratio 11.1; Bilirubin Total 0.9 mg/dL (0.2-1.0); Calcium 8.3 mg/dL (8.5-10.1); Carbon Dioxide 27.1 mmol/L (21.0-32.0); Chloride 102 mmol/L (98-107); Cholesterol 187 mg/dL (<=200); Estimated GFR (African America 60 (>=60 mL/min/1.73m^2); Estimated GFR (Non-African Ame 49 (>=60 mL/min/1.73m^2); Globulin 5.4 g/dL; Glucose 162 mg/dL (74-106); HDL Cholesterol 47 mg/dL (40-60); LDL Cholesterol Calculated 113.2 mg/dL; Sodium 139 mmol/L (136-145); Total Protein 8.3 g/dL (6.4-8.2); Triglycerides 134 mg/dL (<=150); VLDL CHOLESTEROL 26.8 mg/dL
[2024-06-29 14:55] LABS: Aspartate Amino Transferase 42 U/L (15-37); Potassium 4.3 mmol/L (3.5-5.1)
== END 2024-06-29 14:23 | disposition home or self-care (01) ==
LOC: LAB 14:25
PROVIDERS: PCP Nurse Practitioner Family; Visit Provider Nurse Practitioner Family
DX: E78.00 Pure hypercholesterolemia, unspecified (principal); Z79.899 Other long term (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
CPT/HCPCS: 36415; 80053; 80061

== ENCOUNTER 2024-10-09 08:27 | Outpatient (OUT) | payer MEDICARE, MEDICAID, SELFPAY ==
--- OUTSIDE RECORDS SUMMARY | 2024-10-09 08:32 | XMS_ITS | CCD ---
Author Organization [facility] Inform ion Partnership [facility] Care Team Providers Care Guide Foreign Tour Name Role Phone JEFF CARLOS Primary Care Physician [phone] MD Ayden Freeman Primary Care Provider [phone] Al MD Mary Jane Campbell Admit Provider MD Syed Osunaiz Other Provider MD Xin Phan Attending Provider DO Jair Gabriel Emergency Provider MD Luke Moran Admit Provider MD Lupe Hernandez Attending Provider [phone] DO Ramesh Byrd Emergency Provider [phone] PROVIDER, UNKNOWN Admitting Unavailable PROVIDER, UNKNOWN Attending [...] BUTT Consulting Unavailable AMBROCIO, ABBIE Consulting Unavailable MATTHWE, DR MASON Huffman Consulting Unavailable MATTHEW, DR [...] sources) metFORMIN; Translations: [metformin] Drug Allergy 2 [facility] (6 sources) Prochlorperazine; Translations: [prochlorperazine] Drug Allergy 2 [facility] (2 sources) Prochlorperazine Drug Allergy [facility] Medications Current Medications Medication Drug Class(es) [...] PO Q6H 0 April 04, 2022 12:00am [id number] 200 actuat albuterol 0.09 mg/actuat metered dose [...] by mouth four times daily Hydrocodone-Aceta minophen (Kiron) 5-325 mg Tablet Discontinued 1 TAB PO [...] 09, 2022 12:27pm Sliding Scale ACHS nystatin [id number] unt/ml oral suspension (10 sources) Polyene Antifungal [...] disease (1 source) Atherosclerotic heart disease of [place] coronary artery without angina pectoris; Translations: [ASHD [place] CA W/O ANGINA PECTORIS] Onset: 05-20-2022 Chronic [...] 05-29-2022 Chronic Other aftercare (1 source) Other assisted (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; Translations: [OTH RETIREMENT CURRENT DRUG THERAPY] Onset: 12-22-2022 Episodic Other [...] Onset: 01-28-2022 Episodic Other aftercare (1 source) MCC (current) use of 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 It is important that you return our call upon receiving this letter. Also, at the time of your call, please provide us with your current information. Thank you for your prompt attention to this matter. Sincerely, Dr. Javid Haynes MD General Surgery [facility] Provider Letteron 04-09-2024 Provider Letter Provider Letter April 09, 2024 [address] [address] : 1955 Dear Evelin , We have been trying to reach you with no success. It is important that you return our call regarding scheduling a consultation at our office upon receiving this letter. Also, at the time of your call, please provide us with your current information. Thank you for your prompt attention to this matter. Sincerely, [facility] [phone] [facility] Provider Letter Provider Letter April 09, 2024 [address] [address] : 1955 Dear Evelin , We have been trying to reach you with no success. It is important that you return our call regarding your _ upon receiving this letter. Also, at the time of your call, please provide us with your current information. Thank you for your prompt attention to this matter. Sincerely, [facility] [phone] [facility] Provider Letteron 03-15-2024 Provider Letter Provider Letter March 15, 2024 [address] [address] : 1955 Dear Evelin , We have been trying to reach you with no success. It is important that you return our call regarding a referral upon receiving this letter. Also, at the time of your call, please provide us with your current information. Thank you for your prompt attention to this matter. Sincerely, Dr. Javid Haynes MD General Surgery [facility] CBC AUTO DIFFon 12-19-2022 BASO # 0.1 103/ul Normal 0.0-0.1 [facility] Comment on above: Performed By: #### T SH, BMP #### [facility] [address] [place] [address] Dr. Ladan Diehl Basophils/100 WBC (Bld) 1.2 % Normal 0.2-2.0 [facility] [place] Comment on above: Performed By: #### T SH, BMP #### [facility] [address] [place] [address] Dr. Ladan Diehl EO # 0.4 103/ul Normal 0.0-0.7 [facility] Comment on above: Performed By: #### T SH, BMP #### [facility] [address] [place] [address] Dr. Ladan Diehl Eosinophils/100 WBC (Bld) 4.9 % Normal 0.9-7.0 [facility] Comment on above: Performed By: #### T SH, BMP #### [facility] [address] [place] [address] Dr. Ladan Diehl Erythrocyte distribution width (RBC) [Ratio] 14.8 % Normal 11.0-15.0 [facility] Comment on above: Performed By: #### T SH, BMP #### [facility] [address] [place] [address] Dr. Ladan Diehl Hematocrit (Bld) [Volume fraction] 36.7 % Critically low 42.0-54.0 [facility] Comment on above: Performed By: #### T SH, BMP #### [facility] [address] [place] [address] Dr. Ladan Diehl Hemoglobin (Bld) [Mass/Vol] 12.0 g/dL Critically low 14.0-18.0 [facility] Comment on above: Performed By: #### T SH, BMP #### [facility] [address] [place] [address] Dr. Ladan Diehl IG # 0.01 10e3/ul Normal 0.00-0.03 [facility] Comment on above: Performed By: #### T SH, BMP #### [facility] [address] [place] [address] Dr. Ladan Diehl IG % 0.1 % Normal 0.0-0.5 [facility] Comment on above: Performed By: #### T SH, BMP #### [facility] [address] [place] [address] Dr. Ladan Diehl LYMPH # 2.0 103/ul Normal 1.2-3.8 [facility] Comment on above: Performed By: #### T SH, BMP #### [facility] [address] [place] [address] Dr. Ladan Diehl Lymphocytes/100 WBC (Bld) 27.1 % Normal 20.5-60.0 [facility] Comment on above: Performed By: #### T SH, BMP #### [facility] [address] [place] [address] Dr. Ladan Diehl MANUAL DIFF REQ NO Normal [facility] Comment on above: Performed By: #### T SH, BMP #### [facility] [address] [place] [address] Dr. Ladan Diehl MCH (RBC) [Entitic mass] 29.6 pg Normal 25.9-34.0 [facility] Comment on above: Performed By: #### T SH, BMP #### [facility] [address] [place] [address] Dr. Ladan Diehl MCHC (RBC) [Mass/Vol] 32.7 g/dL Normal 29.9-35.2 [facility] Comment on above: Performed By: #### T SH, BMP #### [facility] [address] [place] [address] Dr. Ladan Diehl MCV (RBC) [Entitic vol] 90.6 fL Normal 80.0-94.0 [facility] Comment on above: Performed By: #### T SH, BMP #### [facility] [address] [place] [address] Dr. Ladan Diehl MONO # 0.8 103/ul Normal 0.3-0.8 [facility] Comment on above: Performed By: #### T SH, BMP #### [facility] [address] [place] [address] Dr. Ladan Diehl Monocytes/100 WBC (Bld) 10.4 % Normal 1.7-12.0 [facility] Comment on above: Performed By: #### T SH, BMP #### [facility] [address] [place] [address] Dr. Ladan Diehl NEUT # 4.2 103/ul Normal 1.4-6.5 [facility] Comment on above: Performed By: #### T SH, BMP #### [facility] [address] [place] [address] Dr. Ladan Diehl Neutrophils/100 WBC (Bld) 56.3 % Normal 43.0-75.0 [facility] Comment on above: Performed By: #### T SH, BMP #### [facility] [address] [place] [address] Dr. Ladan Diehl Platelet mean volume (Bld) [Entitic vol] 9.9 fL Normal 9.5-13.5 [facility] Comment on above: Performed By: #### T SH, BMP #### [facility] [address] [place] [address] Dr. Ladan Diehl PLT 227 103/ul Normal 150-450 [facility] Comment on above: Performed By: #### T SH, BMP #### [facility] [address] [place] [address] Dr. Ladan Diehl RBC 4.05 106/ul Critically low 4.70-6.10 [facility] Comment on above: Performed By: #### T SH, BMP #### [facility] [address] [place] [address] Dr. Ladan Diehl WBC 7.4 103/ul Normal 4.0-11.0 [facility] Comment on above: Performed By: #### T SH, BMP #### [facility] [address] [place] [address] Dr. Ladan Diehl FREE T3on 12-19-2022 FREE T3 2.07 pg/mlL Critically low 2.18-3.98 [facility] Comment on above: Performed By: #### T SH, BMP #### [facility] [address] [address] [address] Ladan Diehl FREE T4on 12-19-2022 Free T4 [Mass/Vol] 1.14 ng/dL Normal 0.76-1.46 [facility] Comment on above: Performed By: #### T SH, BMP #### [facility] [address] [address] [address] Ladan Diehl GLYCOHEMOGLOBIN A1Con 2022 ADA RECOMMENDATION SEE BELOW Normal [facility] Comment on above: Result Comment: ADA RECOMMENDED LIMIT 4.0 - 6.0 ADA THERAPEUTIC TARGET < 7.0 ACTION SUGGESTED > 7.0 Performed By: #### T SH, BMP #### [facility] [address] [place] [address] Dr. Ladan Diehl Glucose [Mass/Vol] 134 mg/dL Normal [facility] Comment on above: Performed By: #### T SH, BMP #### [facility] [address] [place] [address] Dr. Ladan Diehl HbA1c (Bld) [Mass fraction] 6.3 % Critically high 4.5-6.2 [facility] Comment on above: Performed By: #### T SH, BMP #### [facility] [address] [place] [address] Dr. Ladan Diehl LIPID PROFILEon 12-19-2022 CHOL-HDL RATIO NORM SEE BELOW Normal [facility] Comment on above: Result Comment: 3.3 - 4.4 LOW RISK 4.4 - 7.1 AVERAGE RISK 7.1 - 11.0 MODERATE RISK >11.0 HIGH RISK Performed By: #### T SH, BMP #### [facility] [address] [address] [address] Ladan Diehl Cholesterol [Mass/Vol] 118 mg/dL Normal <=200 [facility] Comment on above: Performed By: #### T SH, BMP #### [facility] [address] [address] [address] Ladan Diehl Cholesterol in HDL [Mass/Vol] 43 mg/dL Normal 40-60 [facility] Comment on above: Performed By: #### T SH, BMP #### [facility] [address] [address] [address] Ladan Diehl Cholesterol in LDL [Mass/Vol] 48.8 mg/dL Normal [facility] Comment on above: Performed By: #### T SH, BMP #### [facility] [address] [place] [address] Dr. Ladan Diehl Cholesterol.total/Choles terol in HDL [Mass ratio] 2.7 {ratio} Normal [facility] Comment on above: Performed By: #### T SH, BMP #### [facility] [address] [place] [address] Dr. Ladan Diehl HDL NORMAL > or = 60 mg/dl - LOW CARDIOVASCULAR RISK <40 mg/dl - HIGH CARDIOVASCULAR RISK Normal [facility] Comment on above: Performed By: #### T SH, BMP #### [facility] [address] [place] [address] Dr. Ladan Diehl LDL CALC NORMAL SEE BELOW Normal [facility] Comment on above: Result Comment: <100 mg/dl OPTIMAL 100 - 129 mg/dl NEAR OR ABOVE OPTIMAL 130 - 159 mg/dl BORDERLINE HIGH 160 - 189 mg/dl HIGH >190 mg/dl VERY HIGH Performed By: #### T SH, BMP #### [facility] [address] [place] [address] Dr. Ladan Diehl Triglyceride [Mass/Vol] 131 mg/dL Normal <=150 [facility] Comment on above: Performed By: #### T SH, BMP #### [facility] [address] [place] [address] Dr. Ladan Diehl VLDL CALC 26.2 mg/dL Normal [facility] Comment on above: Performed By: #### T SH, BMP #### [facility] [address] [place] [address] Dr. Ladan Diehl LIVER PROFILEon 12-19-2022 Albumin [Mass/Vol] 2.7 g/dL Critically low 3.4-5.[address] [facility] Comment on above: Performed By: #### T SH, BMP #### [facility] [address] [address] [address] Ladan Diehl Albumin/Globulin [Mass ratio] 0.4 {ratio} Normal [facility] Comment on above: Performed By: #### T SH, BMP #### [facility] [address] [address] [address] Ladan Diehl ALP [Catalytic activity/Vol] 154 U/L Critically high 46-116 [facility] Comment on above: Performed By: #### T SH, BMP #### [facility] [address] [address] [address] Ladan Diehl ALT [Catalytic activity/Vol] 25 U/L Normal 16-63 [facility] Comment on above: Performed By: #### T SH, BMP #### [facility] [address] [place] [address] Dr. Ladan Diehl AST [Catalytic activity/Vol] 38 U/L Critically high 15-37 [facility] Comment on above: Performed By: #### T STEFF, BMP #### [facility] [address] [place] [address] Dr. Ladan Diehl BILI, CONJUGATED 0.2 mg/dL Normal 0.0-0.2 [facility] Comment on above: Performed By: #### T SH, BMP #### [facility] [address] [place] [address] Dr. Ladan Diehl Bilirubin [Mass/Vol] 0.8 mg/dL Normal 0.2-1.0 [facility] Comment on above: Performed By: #### T SH, BMP #### [facility] [address] [place] [address] Dr. Ladan Diehl Globulin (S) [Mass/Vol] 6.2 g/dL Normal [facility] [place] Comment on above: Performed By: #### T SH, BMP #### [facility] [address] [place] [address] Dr. Ladan iDehl Protein [Mass/Vol] 8.9 g/dL Critically high 6.4-8.2 [facility] [place] Comment on above: Performed By: #### T SH, BMP #### [facility] [address] [place] [address] Dr. Ladan Diehl MICROALBUMIN, RAND URon 12-09 mALB 25.4 mg/dL Normal <=30.0 [facility] Comment on above: Performed By: #### T SH, BMP #### [facility] [address] [place] [address] Dr. Ladan Diehl PROF CHEM 8 (BAS METB)on Anion gap [Moles/Vol] 10.7 mmol/L Normal [facility] Comment on above: Performed By: #### T SH, BMP #### [facility] [address] [address] [address] Ladan Diehl Calcium [Mass/Vol] 9.0 mg/dL Normal 8.5-10.1 [facility] Comment on above: Performed By: #### T SH, BMP #### [facility] [address] [place] [address] Dr. Ladan Diehl Chloride [Moles/Vol] 103 mmol/L Normal 98-107 [facility] Comment on above: Performed By: #### T SH, BMP #### [facility] [address] [place] [address] Dr. Ladan Diehl CO2 [Moles/Vol] 27.5 mmol/L Normal 21.0-32.0 [facility] Comment on above: Performed By: #### T SH, BMP #### [facility] [address] [place] [address] Dr. Ladan Diehl Creatinine [Mass/Vol] 1.29 mg/dL Normal 0.70-1.30 [facility] Comment on above: Performed By: #### T SH, BMP #### [facility] [address] [place] [address] Dr. Ladan Diehl EGFR-AF PALESTINIAN >60 Normal >=60 [facility] Comment on above: Performed By: #### T SH, BMP #### [facility] [address] [place] [address] Dr. Ladan Diehl EGFR-NON AF PALESTINIAN 56 mL/min/1.73m2 Critically low >=60 [facility] Comment on above: Performed By: #### T SH, BMP #### [facility] [address] [address] [address] Ladan Diehl Glucose [Mass/Vol] 108 mg/dL Critically high 74-106 [facility] Comment on above: Performed By: #### T SH, BMP #### [facility] [address] [place] [address] Dr. Ladan Diehl Potassium [Moles/Vol] 4.2 mmol/L Normal 3.5-5.1 [facility] Comment on above: Performed By: #### T SH, BMP #### [facility] [address] [place] [address] Dr. Ladan Diehl Sodium [Moles/Vol] 137 mmol/L Normal 136-145 [facility] Comment on above: Performed By: #### T SH, BMP #### [facility] [address] [place] [address] Dr. Ladan Diehl Urea nitrogen [Mass/Vol] 12.0 mg/dL Normal 7.0-18.0 [facility] Comment on above: Performed By: #### T SH, BMP #### [facility] [address] [place] [address] Dr. Ladan Diehl Urea nitrogen/Creatinine [Mass ratio] 9.3 mg/mg Normal [facility] Comment on above: Performed By: #### T SH, BMP #### [facility] [address] [place] [address] Dr. Ladan Diehl TSHon 12-19-2022 TSH 8.668 uIU/mL Critically high 0.358-3.740 [facility] Comment on above: Performed By: #### T SH, BMP #### [facility] [address] [place] [address] Dr. Ladan Diehl GLYCOHEMOGLOBIN A1Con 2021 ADA RECOMMENDATION SEE BELOW Normal [facility] Comment on above: Result Comment: ADA RECOMMENDED LIMIT 4.0 - 6.0 ADA THERAPEUTIC TARGET < 7.0 ACTION SUGGESTED > 7.0 Performed By: #### A 1C #### [facility] [address] [place], [place] [address] Dr. Ladan Diehl Glucose [Mass/Vol] 140 mg/dL Normal [facility] Comment on above: Performed By: #### A 1C #### [facility] [address] [place], [place] [address] Dr. Ladan Diehl HbA1c (Bld) [Mass fraction] 6.5 % Critically high 4.5-6.2 [facility] Comment on above: Performed By: #### A 1C #### [facility] [id number] 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 Interface Message Text EMERGENCY TRIAGE, TREAT AND TRANSPORT (ET3) DOCUMENTATION OF TELEHEALTH VISIT Date / Time: 05/01/2022599 Name: Evelin Patterson : 1955 SSN: [id number] EMS Agency: [facility] [x] Verbal consent obtained [] Implied [...] Completed by: Peter Molina, DO Normal [facility] Activated partial thrombopla stin time (aPTT) in platelet poor plasma by coagulation aOrdered By: Ramesh Byrd on 04-12-2022 aPTT Coag (PPP) [Time] 24.8 s 25.1-36.5 [facility] Automated erythrocytes count in urine sediment (number/area)Ordered By: Ramesh Byrd on 04-12-2022 RBC Auto (Urine sed) [#/Area] 20-49 [HPF] 0-4 [facility] Automated leukocytes count i n urine sediment (number/area)Ordered By: Raemsh Byrd on 04-12-2022 WBC Auto (Urine sed) [#/Area] 1-2 [HPF] 0-4 [facility] B-Type Natriuretic Peptideon 04-12-2022 Natriuretic peptide B (Bld) [Mass/Vol] 196.0 pg/mL High 5-100 [facility] Comment on above: Result Comment: PERF ORMED BY: [facility] [address] [place] [id number] PATHOLOGIST SATURATOR CHARLENE HERNANDEZ M.D. Performed By: #### C MP, TSH3, PT, HS TROP, PTT, BNP, MG, CBC #### [facility] [address] Basophils Auto (Bld) [#/Vol] Ordered By: Ramesh Byrd on 04-12-2022 Basophils (Bld) [#/Vol] 0.0 10*3/uL 0.0-0.2 [facility] Basophils/100 WBC Auto (Bld) Ordered By: Ramesh Byrd on 04-12-2022 Basophils/100 WBC (Bld) 0.6 % . [facility] Bilirubin Test strip Ql (U)O rdered By: Ramesh Byrd on 04-12-2022 Bilirubin Ql (U) Negative Negative [facility] Blood hemoglobin measurement (mass/volume)Ordered By: Ramesh Byrd on 04-12-2022 Hemoglobin (Bld) [Mass/Vol] 12.2 g/dL 13.0-17.0 [facility] Blood leukocytes automated c ount (number/volume)Ordered By: Ramesh Byrd on 04-12-2022 WBC (Bld) [#/Vol] 6.4 10*3/uL 4.5-11.0 [facility] Body fluid albumin measureme nt (mass/volume)Ordered By: Ramesh Byrd on 04-12-2022 Albumin (Body fld) [Mass/Vol] 2.3 g/dL 3.2-5.5 [facility] Color Auto (U)Ordered By: Andi Byrd on 04-12-2022 Color (U) Yellow Yellow [facility] Complete Blood Count Auto Di ffon 04-12-2022 Basophils (Bld) [#/Vol] 0.0 10*3/uL Normal 0.0-0.2 [facility] Comment on above: Result Comment: PERF ORMED BY: [facility] [address] [place] [address] PATHOLOGIST SATURATOR CHARLENE HERNANDEZ M.D. Performed By: #### C MP, TSH3, PT, HS TROP, PTT, BNP, MG, CBC #### [address] Basophils/100 WBC (Bld) 0.6 % Normal . [facility] Comment on above: Performed By: #### C MP, TSH3, PT, HS TROP, PTT, BNP, MG, CBC #### [address] Eosinophils (Bld) [#/Vol] 0.2 10*3/uL Normal 0.0-0.45 [facility] Comment on above: Performed By: #### C MP, TSH3, PT, HS TROP, PTT, BNP, MG, CBC #### [address] Eosinophils/100 WBC (Bld) 2.7 % Normal . [facility] Comment on above: Performed By: #### C MP, TSH3, PT, HS TROP, PTT, BNP, MG, CBC #### [address] Erythrocyte distribution width (RBC) [Ratio] 16.7 % High 12.0-14.8 [facility] Comment on above: Performed By: #### C MP, TSH3, PT, HS TROP, PTT, BNP, MG, CBC #### [address] Hematocrit (Bld) [Volume fraction] 36.7 % Low 38.8-50.0 [facility] Comment on above: Performed By: #### C MP, TSH3, PT, HS TROP, PTT, BNP, MG, CBC #### [address] Hemoglobin (Bld) [Mass/Vol] 12.2 g/dL Low 13.0-17.0 [facility] Comment on above: Performed By: #### C MP, TSH3, PT, HS TROP, PTT, BNP, MG, CBC #### [address] Lymphocytes (Bld) [#/Vol] 1.0 10*3/uL Normal 1.00-4.8 [facility] Comment on above: Performed By: #### C MP, TSH3, PT, HS TROP, PTT, BNP, MG, CBC #### [address] Lymphocytes/100 WBC (Bld) 16.1 % Normal . [facility] Comment on above: Performed By: #### C MP, TSH3, PT, HS TROP, PTT, BNP, MG, CBC #### [address] MCH (RBC) [Entitic mass] 31.0 pg Normal 27.5-35.2 [facility] Comment on above: Performed By: #### C MP, TSH3, PT, HS TROP, PTT, BNP, MG, CBC #### [address] MCV (RBC) [Entitic vol] 93.5 fL Normal 83.5-101 [facility] Comment on above: Performed By: #### C MP, TSH3, PT, HS TROP, PTT, BNP, MG, CBC #### [address] Mean Corpuscular HGB Conc 33.1 g/dL Normal 32.5-35.6 [facility] Comment on above: Performed By: #### C MP, TSH3, PT, HS TROP, PTT, BNP, MG, CBC #### [address] Monocytes (Bld) [#/Vol] 0.8 10*3/uL Normal 0.0-0.8 [facility] Comment on above: Performed By: #### C MP, TSH3, PT, HS TROP, PTT, BNP, MG, CBC #### [address] Monocytes/100 WBC (Bld) 12.0 % Normal . [facility] Comment on above: Performed By: #### C MP, TSH3, PT, HS TROP, PTT, BNP, MG, CBC #### [place] [address] [place] Neutrophils (Bld) [#/Vol] 4.4 10*3/uL Normal 1.8-7.7 [facility] Comment on above: Performed By: #### C MP, TSH3, PT, HS TROP, PTT, BNP, MG, CBC #### [facility] [address] Neutrophils/100 WBC (Bld) 68.6 % Normal . [facility] Comment on above: Performed By: #### C MP, TSH3, PT, HS TROP, PTT, BNP, MG, CBC #### [facility] [address] Nucleated RBC/100 WBC (Bld) [Ratio] 0.1 % Normal 0-0.5 [facility] Comment on above: Performed By: #### C MP, TSH3, PT, HS TROP, PTT, BNP, MG, CBC #### [facility] [address] Platelet mean volume (Bld) [Entitic vol] 8.0 fL Normal 6.6-10.1 [facility] Comment on above: Performed By: #### C MP, TSH3, PT, HS TROP, PTT, BNP, MG, CBC #### [facility] [address] Platelets (Bld) [#/Vol] 191 10*3/uL Normal 150-450 [facility] Comment on above: Performed By: #### C MP, TSH3, PT, HS TROP, PTT, BNP, MG, CBC #### [facility] [address] [place] [address] [place] RBC (Bld) [#/Vol] 3.93 10*6/uL Normal 3.90-5.60 [facility] [place] Comment on above: Performed By: #### C MP, TSH3, PT, HS TROP, PTT, BNP, MG, CBC #### [facility] [address] WBC (Bld) [#/Vol] 6.4 10*3/uL Normal 4.5-11.0 [facility] Comment on above: Performed By: #### C MP, TSH3, PT, HS TROP, PTT, BNP, MG, CBC #### [facility] [address] Comprehensive Metabolic Pane xavier 04-12-2022 Albumin [Mass/Vol] 2.3 g/dL Low 3.2-5.5 [facility] Comment on above: Performed By: #### C MP, TSH3, PT, HS TROP, PTT, BNP, MG, CBC #### [facility] [address] Albumin/Globulin [Mass ratio] 0.5 {ratio} Normal [facility] Comment on above: Performed By: #### C MP, TSH3, PT, HS TROP, PTT, BNP, MG, CBC #### [address] ALP [Catalytic activity/Vol] 97 U/L High 32-92 [facility] Comment on above: Performed By: #### C MP, TSH3, PT, HS TROP, PTT, BNP, MG, CBC #### [address] ALT [Catalytic activity/Vol] 34 U/L Normal 10-60 [facility] Comment on above: Performed By: #### C MP, TSH3, PT, HS TROP, PTT, BNP, MG, CBC #### [address] Anion gap [Moles/Vol] 17.1 mmol/L High 6.0-15.0 [facility] Comment on above: Performed By: #### C MP, TSH3, PT, HS TROP, PTT, BNP, MG, CBC #### [address] AST [Catalytic activity/Vol] 136 U/L High 10-42 [facility] Comment on above: Performed By: #### C MP, TSH3, PT, HS TROP, PTT, BNP, MG, CBC #### [place] [address] [place] Bilirubin [Mass/Vol] 1.3 mg/dL High 0.3-1.2 [facility] Comment on above: Result Comment: Samp les from patients who have taken Naproxen have shown spurious elevation in Total Bilirubin levels. A metabolite of Naproxen, O-desmethylnaproxen, has been shown to interfere with the Jendrassik-Grof method for measuring Total Bilirubin. Performed By: #### C MP, TSH3, PT, HS TROP, PTT, BNP, MG, CBC #### [facility] [address] Calcium [Mass/Vol] 8.6 mg/dL Normal 8.2-10.2 [facility] Comment on above: Performed By: #### C MP, TSH3, PT, HS TROP, PTT, BNP, MG, CBC #### [address] Chloride [Moles/Vol] 97 mmol/L Normal 95-114 [facility] Comment on above: Performed By: #### C MP, TSH3, PT, HS TROP, PTT, BNP, MG, CBC #### [facility] [address] CO2 [Moles/Vol] 25.4 mmol/L Normal 22.0-30.0 [facility] Comment on above: Performed By: #### C MP, TSH3, PT, HS TROP, PTT, BNP, MG, CBC #### [facility] [address] Creatinine [Mass/Vol] 1.14 mg/dL Normal 0.64-1.27 [facility] Comment on above: Performed By: #### C MP, TSH3, PT, HS TROP, PTT, BNP, MG, CBC #### [facility] [address] Creatinine Clr Calc Pharmacy 97.67 [facility] Comment on above: Performed By: #### C MP, TSH3, PT, HS TROP, PTT, BNP, MG, CBC #### [address] Estimated GFR ( Lilibeth > 60 Normal [facility] Comment on above: Result Comment: GFR estimated reference range: According to KDOQI guidelines, <60 ml/min/1.73m2 is sufficient to diagnose a patient with chronic kidney disease. Performed By: #### C MP, TSH3, PT, HS TROP, PTT, BNP, MG, CBC #### [facility] [address] [place] [address] [place] Estimated GFR (Non- Am > 60 Normal [facility] Comment on above: Performed By: #### C MP, TSH3, PT, HS TROP, PTT, BNP, MG, CBC #### [facility] [address] [place] [address] [place] Globulin (S) [Mass/Vol] 4.7 g/dL Normal [facility] Comment on above: Performed By: #### C MP, TSH3, PT, HS TROP, PTT, BNP, MG, CBC #### [facility] [address] Glucose [Mass/Vol] 164 mg/dL High 70-100 [facility] Comment on above: Result Comment: [place] Glucose Reference Range is dependent on time and content of last meal. Glucose of more than 200 mg/dL in a nonstressed, ambulatory subject supports the diagnosis of Diabetes Mellitus. ADA recommended reference range Performed By: #### C MP, TSH3, PT, HS TROP, PTT, BNP, MG, CBC #### [place] [address] [place] Potassium [Moles/Vol] 3.5 mmol/L Normal 3.5-5.1 [facility] Comment on above: Performed By: #### C MP, TSH3, PT, HS TROP, PTT, BNP, MG, CBC #### [facility] [address] [place] [address] [place] Protein [Mass/Vol] 7.0 g/dL Normal 6.1-7.9 [facility] Comment on above: Performed By: #### C MP, TSH3, PT, HS TROP, PTT, BNP, MG, CBC #### [place] [address] [place] Sodium [Moles/Vol] 136 mmol/L Normal 136-146 [facility] Comment on above: Performed By: #### C MP, TSH3, PT, HS TROP, PTT, BNP, MG, CBC #### [facility] [address] Urea nitrogen [Mass/Vol] 13 mg/dL Normal 9-23 [facility] Comment on above: Performed By: #### C MP, TSH3, PT, HS TROP, PTT, BNP, MG, CBC #### [facility] [address] [place] [address] [place] Creatinine and Glomerular fi ltration rate.predicted panel (S/P/Bld)Ordered By: Ramesh Byrd on 04-12-2022 Creatinine [Mass/Vol] 1.14 mg/dL 0.64-1.27 [facility] Dipstick and Microscopicon 0 04-12-2022 Appearance (U) Clear Normal Clear [facility] Comment on above: Order Comment: Name Collection Type:: Clean-Voided Midstream Performed By: #### A DDONUAPLUS #### [place] [address] [place] Bacteria,Urine None Seen Normal None Seen [facility] Comment on above: Order Comment: Name Collection Type:: Clean-Voided Midstream Performed By: #### A DDONUAPLUS #### [place] [address] [place] Bilirubin,Urine Negative Normal Negative [facility] Comment on above: Order Comment: Name Collection Type:: Clean-Voided Midstream Performed By: #### A DDONUAPLUS #### [place] [address] [place] Color (U) Yellow Normal Yellow [facility] Comment on above: Order Comment: Name Collection Type:: Clean-Voided Midstream Performed By: #### A DDONUAPLUS #### [place] [address] [place] Glucose Ql (U) Normal Normal Normal [facility] Comment on above: Order Comment: Name Collection Type:: Clean-Voided Midstream Performed By: #### A DDONUAPLUS #### [place] [address] [place] Hyaline Casts,Urine 0-8 Normal 0-8 [facility] [place] Comment on above: Order Comment: Name Collection Type:: Clean-Voided Midstream Result Comment: PERF ORMED BY: [place] [address] PATHOLOGIST SATURATOR CHARLENE HERNANDEZ M.D. Performed By: #### A DDONUAPLUS #### [address] Ketones Ql (U) Trace High Negative [facility] Comment on above: Order Comment: Name Collection Type:: Clean-Voided Midstream Performed By: #### A DDONUAPLUS #### [address] Leukocyte esterase Test strip Ql (U) Negative Normal Negative [facility] Comment on above: Order Comment: Name Collection Type:: Clean-Voided Midstream Performed By: #### A DDONUAPLUS #### [place] [address] [place] Nitrite,Urine Negative Normal Negative [facility] Comment on above: Order Comment: Name Collection Type:: Clean-Voided Midstream Performed By: #### A DDONUAPLUS #### [place] [address] [place] Occult Blood,Urine 2+ High Negative [facility] Comment on above: Order Comment: Name Collection Type:: Clean-Voided Midstream Result Comment: PERF ORMED BY: [place] [address] PATHOLOGIST SATURATOR CHARLENE HERNANDEZ M.D. Performed By: #### A DDONUAPLUS #### [place] [address] [place] pH (U) 6.5 [pH] Normal 5.0-9.0 [facility] Comment on above: Order Comment: Name Collection Type:: Clean-Voided Midstream Performed By: #### A DDONUAPLUS #### [address] Protein (U) [Mass/Vol] 100 mg/dL High Negative [facility] Comment on above: Order Comment: Name Collection Type:: Clean-Voided Midstream Performed By: #### A DDONUAPLUS #### [address] RBC,Urine 20-49 High 0-4 [facility] Comment on above: Order Comment: Name Collection Type:: Clean-Voided Midstream Performed By: #### A DDONUAPLUS #### [address] Specificy [place],Urine 1.020 Normal 1.001-1.030 [facility] Comment on above: Order Comment: Name Collection Type:: Clean-Voided Midstream Performed By: #### A DDONUAPLUS #### [address] Squamous Epithelial Cell,Urine 0-1 Normal 0-2 [facility] Comment on above: Order Comment: Name Collection Type:: Clean-Voided Midstream Performed By: #### A DDONUAPLUS #### [address] Urobilinogen,Urine Normal Normal Normal [facility] Comment on above: Order Comment: Name Collection Type:: Clean-Voided Midstream Performed By: #### A DDONUAPLUS #### [place] [address] [place] WBC,Urine 1-2 Normal 0-4 [facility] Comment on above: Order Comment: Name Collection Type:: Clean-Voided Midstream Performed By: #### A DDONUAPLUS #### [address] ECG 12 lead ECGon 04-12-2022 ECG 12 lead ECG [facility] [place] [address] [place] [address] Electrocardiograph Report Signed Patient: Evelin Patterson MR#: [id number] 005 : 1955 Acct:[id number] Age/Sex: 66 / M ADM Date: 04/12/22 Loc: ER Room: Type: [facility] ER Attending Dr: Ordering Provider: Ramesh [...] Prolonged QT Confirmed by Ramesh BYRD DO ([id number]) on 04/12/2022 4:38:01 PM Referred By: Electronically Signed By:Ramesh BYRD DO Transcribed By: MUS Signed By Ramesh Byrd DO 0 04/12/22 1638 Normal [facility] Eosinophils Auto (Bld) [#/Vo l]Ordered By: Ramesh Byrd on 04-12-2022 Eosinophils (Bld) [#/Vol] 0.2 10*3/uL 0.0-0.45 [facility] Eosinophils/100 WBC Auto (Bl d)Ordered By: Ramesh Byrd on 04-12-2022 Eosinophils/100 WBC (Bld) 2.7 % . [facility] Erythrocyte distribution wid th Auto (RBC) [Ratio]Ordered By: Ramesh Byrd on 04-12-2022 Erythrocyte distribution width (RBC) [Ratio] 16.7 % 12.0-14.8 [facility] Estimated glomerular filtrat ion rate (GFR) non- AmericanOrdered By: Ramesh Byrd on 04-12-2022 GFR/1.73 sq M.predicted among non-blacks MDRD (S/P/Bld) [Vol rate/Area] > 60 mL/Min [facility] Globulin Calc (S) [Mass/Vol] Ordered By: Ramesh Byrd on 04-12-2022 Globulin (S) [Mass/Vol] 4.7 g/dL [facility] Glucose Glucometer (BldC) [M ass/Vol]Ordered By: Ramesh Byrd on 04-12-2022 Glucose [Mass/Vol] 168 mg/dL [facility] Comment on above: Random Glucose Refer ence Range is dependent on time and content of last meal. Glucose of more than 200 mg/dL in a nonstressed, ambulatory subject supports the diagnosis of Diabetes Mellitus. Glucose Poct Glucometerson 0 04-12-2022 Glucose [Mass/Vol] 168 mg/dL Normal [facility] Comment on above: Result Comment: [place] om Glucose Reference Range is dependent on time and content of last meal. Glucose of more than 200 mg/dL in a nonstressed, ambulatory subject supports the diagnosis of Diabetes Mellitus. PERFORMED BY: [facility] [address] [place] [address] PATHOLOGIST SATURATOR CHARLENE HERNANDEZ M.D. Performed By: #### G CARMEN #### Point of Care testing , Hematocrit Auto (Bld) [Volum e fraction]Ordered By: Ramesh Byrd on 04-12-2022 Hematocrit (Bld) [Volume fraction] 36.7 % 38.8-50.0 [facility] Ketones Auto test strip (U) [Mass/Vol]Ordered By: Ramesh Byrd on 04-12-2022 Ketones (U) [Mass/Vol] Trace Negative [facility] Laboratory - Chemistry and C hemistry - challengeOrdered By: Ramesh Byrd on 04-12-2022 Magnesium [Mass/Vol] 1.3 mg/dL 1.6-2.6 [facility] Natriuretic peptide B (Bld) [Mass/Vol] 196.0 pg/mL 5-100 [facility] Laboratory - CoagulationOrde red By: Ramesh Byrd on 04-12-2022 PT Coag (PPP) [Time] 12.5 s 9.0-12.9 [facility] Laboratory - Hematology and Cell countsOrdered By: Ramesh Byrd on 04-12-2022 Nucleated RBC/100 WBC (Bld) [Ratio] 0.1 % 0-0.5 [facility] Laboratory - UrinalysisOrder ed By: Ramesh Byrd on 04-12-2022 Hyaline casts LM Ql (Urine sed) 0-8 [LPF] 0-8 [facility] Lymphocytes Auto (Bld) [#/Vo l]Ordered By: Ramesh Byrd on 04-12-2022 Lymphocytes (Bld) [#/Vol] 1.0 10*3/uL 1.00-4.8 [facility] Lymphocytes/100 WBC Auto (Bl d)Ordered By: Ramesh Byrd on 04-12-2022 Lymphocytes/100 WBC (Bld) 16.1 % . [facility] MCH Auto (RBC) [Entitic mass ]Ordered By: Ramesh Byrd on 04-12-2022 MCH (RBC) [Entitic mass] 31.0 pg 27.5-35.2 [facility] MCHC Auto (RBC) [Mass/Vol]Or dered By: Ramesh Byrd on 04-12-2022 MCHC (RBC) [Mass/Vol] 33.1 g/dL 32.5-35.6 [facility] MCV Auto (RBC) [Entitic vol] Ordered By: Ramesh Byrd on 04-12-2022 MCV (RBC) [Entitic vol] 93.5 fL 83.5-101 [facility] Magnesiumon 04-12-2022 Magnesium [Mass/Vol] 1.3 mg/dL Low 1.6-2.6 [facility] Comment on above: Performed By: #### G LULS #### Point of Care testing , Monocytes Auto (Bld) [#/Vol] Ordered By: Ramesh Byrd on 04-12-2022 Monocytes (Bld) [#/Vol] 0.8 10*3/uL 0.0-0.8 [facility] Monocytes/100 WBC Auto (Bld) Ordered By: Ramesh Byrd on 04-12-2022 Monocytes/100 WBC (Bld) 12.0 % . [facility] Neutrophils Auto (Bld) [#/Vo l]Ordered By: Ramesh Byrd on 04-12-2022 Neutrophils (Bld) [#/Vol] 4.4 10*3/uL 1.8-7.7 [facility] Neutrophils/100 WBC Auto (Bl d)Ordered By: Ramesh Byrd on 04-12-2022 Neutrophils/100 WBC (Bld) 68.6 % . [facility] Nitrite Test strip Ql (U)Ord ered By: Ramesh Byrd on 04-12-2022 Nitrite Ql (U) Negative Negative [facility] No Panel InformationOrdered By: Ramesh Byrd on 04-12-2022 Estimated GFR () > 60 mL/Min [facility] Comment on above: GFR estimated refere nce range: According to KDOQI guidelines, <60 ml/min/1.73m2 is sufficient to diagnose a patient with chronic kidney disease. Pharmacy Creatinine Clearance (Chem 97.67 [facility] Partial Thromboplastin Timeo n 04-12-2022 aPTT Coag (Bld) [Time] 24.8 s Low 25.1-36.[address] [facility] Comment on above: Result Comment: PERF ORMED BY: [place] [address] PATHOLOGIST SATURATOR CHARLENE HERNANDEZ M.D. Performed By: #### C MP, TSH3, PT, HS TROP, PTT, BNP, MG, CBC #### [facility] [address] Platelet mean volume Auto (B ld) [Entitic vol]Ordered By: Ramesh Byrd on 04-12-2022 Platelet mean volume (Bld) [Entitic vol] 8.0 fL 6.6-10.1 [facility] Platelet poor plasma interna tional normalized ratio (INR) by coagulation assay (relatOrdered By: Ramesh Byrd on 04-12-2022 INR Coag (PPP) [Relative time] 1.1 {INR} [facility] Comment on above: INR Therapeutic Rang e [...] 04-12-2022 Platelets (Bld) [#/Vol] 191 10*3/uL 150-450 [facility] Protein Auto test strip (U) [Mass/Vol]Ordered By: Ramesh Byrd on 04-12-2022 Protein (U) [Mass/Vol] 100 mg/dL Negative [facility] Protein [Mass/volume] in Ser um or PlasmaOrdered By: Ramesh Byrd on 04-12-2022 Protein [Mass/Vol] 7.0 g/dL 6.1-7.9 [facility] Prothrombin Time INRon 04-12 INR Coag (PPP) [Relative time] 1.1 {INR} Normal [facility] Comment on above: Result Comment: INR Therapeutic [...] HS TROP, PTT, BNP, MG, CBC #### [facility] [address] PT Coag (PPP) [Time] 12.5 s Normal 9.0-12.9 [facility] Comment on above: Performed By: #### C MP, TSH3, PT, HS TROP, PTT, BNP, MG, CBC #### [facility] [address] RBC Auto (Bld) [#/Vol]Ordere d By: Ramesh Byrd on 04-12-2022 RBC (Bld) [#/Vol] 3.93 10*6/uL 3.90-5.60 [facility] [place] Serum or plasma alanine vivas otransferase measurement without P-5'-P (enzymatic activiOrdered By: Ramesh Byrd on 04-12-2022 ALT No additional P-5'-P [Catalytic activity/Vol] 34 U/L 10-60 [facility] Serum or plasma albumin/glob ulin mass ratioOrdered By: Ramesh Byrd on 04-12-2022 Albumin/Globulin [Mass ratio] 0.5 {ratio} [facility] Serum or plasma alkaline dilan sphatase measurement (enzymatic activity/volume)Ordered By: Ramesh Byrd on 04-12-2022 ALP [Catalytic activity/Vol] 97 U/L 32-92 [facility] Serum or plasma anion gap de terminationOrdered By: Ramesh Byrd on 04-12-2022 Anion gap [Moles/Vol] 17.1 mmol/L 6.0-15.0 [facility] Serum or plasma aspartate am inotransferase measurement (enzymatic activity/volume)Ordered By: Ramesh Byrd on 04-12-2022 AST [Catalytic activity/Vol] 136 U/L 10-42 [facility] Serum or plasma calcium osbaldo urement (mass/volume)Ordered By: Ramesh Byrd on 04-12-2022 Calcium [Mass/Vol] 8.6 mg/dL 8.2-10.2 [facility] Serum or plasma chloride judith surement (moles/volume)Ordered By: Ramesh Byrd on 04-12-2022 Chloride [Moles/Vol] 97 mmol/L 95-114 [facility] Serum or plasma glucose osbaldo urement (mass/volume)Ordered By: Ramesh Byrd on 04-12-2022 Glucose [Mass/Vol] 164 mg/dL 70-100 [facility] Comment on above: ADA recommended refe rence range Random Glucose Reference Range is dependent on time and content of last meal. Glucose of more than 200 mg/dL in a nonstressed, ambulatory subject supports the diagnosis of Diabetes Mellitus. Serum or plasma potassium me asurement (moles/volume)Ordered By: Ramesh Byrd on 04-12-2022 Potassium [Moles/Vol] 3.5 mmol/L 3.5-5.1 [facility] Serum or plasma sodium measu rement (moles/volume)Ordered By: Ramesh Byrd on 04-12-2022 Sodium [Moles/Vol] 136 mmol/L 136-146 [facility] Serum or plasma total biliru bin measurement (mass/volume)Ordered By: Ramesh Byrd on 04-12-2022 Bilirubin [Mass/Vol] 1.3 mg/dL 0.3-1.2 [facility] Comment on above: Samples from patient s who have taken Naproxen have shown spurious elevation in Total Bilirubin levels. A metabolite of Naproxen, O-desmethylnaproxen, has been shown to interfere with the Jendrassik-Grof method for measuring Total Bilirubin. Serum or plasma total carbon dioxide measurement (moles/volume)Ordered By: Ramesh Byrd on 04-12-2022 CO2 [Moles/Vol] 25.4 mmol/L 22.0-30.0 [facility] Serum or plasma urea nitroge n measurement (mass/volume)Ordered By: Ramesh quan on 04-12-2022 Urea nitrogen [Mass/Vol] 13 mg/dL 9- [facility] Specific gravity Auto test s trip (U) [Rel density]Ordered By: Ramesh quan on 04-12-2022 Specific gravity (U) [Rel density] 1.020 1.001-1.030 [facility] Squamous epithelial cells de tection in urine sediment by light microscopyOrdered By: Ramesh quan on 04-12-2022 Epithelial cells.squamous LM Ql (Urine sed) 0-1 [HPF] 0-2 [facility] TSH DL <= 0.005 mIU/L QnOrde red By: Ramesh Byrd on 04-12-2022 TSH Qn 13.14 m[IU]/L 0.45-5.33 [facility] Thyroid Stimulating Hormoneo n 04-12-2022 TSH Qn 13.14 m[IU]/L High 0.45-5.33 [facility] Comment on above: Result Comment: PERF ORMED BY: [place] [address] PATHOLOGIST SATURATOR CHARLENE HERNANDEZ M.D. Performed By: #### G LULS #### Point of Care testing , Troponin I High Sensitivityo n 04-12-2022 Troponin I High Sensitivity 18 pg/mL Normal 0-20 [facility] Comment on above: Result Comment: PERF ORMED BY: [facility] [address] [place] [id number] PATHOLOGIST SATURATOR CHARLENE HERNANDEZ M.D. Performed By: #### C MP, TSH3, PT, HS TROP, PTT, BNP, MG, CBC #### [facility] [address] Troponin I.cardiac [Mass/vol ume] in Serum or Plasma by High sensitivity methodOrdered By: Ramesh Byrd on 04-12-2022 Troponin I.cardiac High sensitivity method [Mass/Vol] 18 pg/mL 0-20 [facility] Urine bacteria detection by automated methodOrdered By: Ramesh Byrd on 04-12-2022 Bacteria Auto Ql (U) None seen None Seen [facility] Urine clarity by refractomet ry automatedOrdered By: Ramesh Byrd on 04-12-2022 Clarity Refractometry automated (U) Clear Clear [facility] Urine glucose measurement by automated test strip (mass/volume)Ordered By: Ramesh Byrd on 04-12-2022 Glucose Auto test strip (U) [Mass/Vol] Normal mg/dL Normal [facility] Urine hemoglobin detection b y automated test stripOrdered By: Ramesh Byrd on 04-12-2022 Hemoglobin Auto test strip Ql (U) 2+ Negative [facility] Urine leukocyte esterase det ection by automated test stripOrdered By: Ramesh Byrd on 04-12-2022 Leukocyte esterase Auto test strip Ql (U) Negative Negative [facility] Urobilinogen Auto test strip (U) [Mass/Vol]Ordered By: Ramesh Byrd on 04-12-2022 Urobilinogen (U) [Mass/Vol] Normal mg/dL Normal [facility] XR chest 2V*on 04-12-2022 XR chest 2V* [place] [address] XRay Report Signed Patient: Evelin Patterson MR#: [id number] 005 : 1955 Acct:[id number] Age/Sex: 66 / M ADM Date: 04/12/22 Loc: ER Room: Type: [facility] ER Attending Dr: Copies to: Ramesh [...] Jessica Cazares M.D.04/12/2022 11:53 AM Dictation Location: [place] [address] Transcribed By: [place] 04/12/22 1153 Dictated By: Jessica Cazares MD 04/12/22 1151 Signed By: 04/12/22 1153 Normal [facility] pH Auto test strip (U)Ordere d By: Ramesh Byrd on 04-12-2022 pH (U) 6.5 [pH] 5.0-9.0 [facility] Albumin [Mass/volume] in Ser um or PlasmaOrdered By: Lupe Hernandez on 04-09-2022 Albumin [Mass/Vol] 1.9 g/dL 3.2-5.5 [facility] Basophils Auto (Bld) [#/Vol] Ordered By: Lupe Hernandez on 04-09-2022 Basophils (Bld) [#/Vol] 0.1 10*3/uL 0.0-0.2 [facility] Basophils/100 WBC Auto (Bld) Ordered By: Lupe Hernandez on 04-09-2022 Basophils/100 WBC (Bld) 1.3 % . [facility] Blood hemoglobin measurement (mass/volume)Ordered By: Lupe Hernandez on 04-09-2022 Hemoglobin (Bld) [Mass/Vol] 11.2 g/dL 13.0-17.0 [facility] Blood leukocytes automated c ount (number/volume)Ordered By: Lupe Hernandez on 04-09-2022 WBC (Bld) [#/Vol] 5.4 10*3/uL 4.5-11.0 [facility] Creatinine and Glomerular fi ltration rate.predicted panel (S/P/Bld)Ordered By: Lupe Hernandez on 04-09-2022 Creatinine [Mass/Vol] 0.88 mg/dL 0.64-1.27 [facility] Eosinophils Auto (Bld) [#/Vo l]Ordered By: uLpe Hernandez on 04-09-2022 Eosinophils (Bld) [#/Vol] 0.3 10*3/uL 0.0-0.45 [facility] Eosinophils/100 WBC Auto (Bl d)Ordered By: Lupe Hernandez on 04-09-2022 Eosinophils/100 WBC (Bld) 5.6 % . [facility] Erythrocyte distribution wid th Auto (RBC) [Ratio]Ordered By: Lupe Hernandez on 04-09-2022 Erythrocyte distribution width (RBC) [Ratio] 16.5 % 12.0-14.8 [facility] Estimated glomerular filtrat ion rate (GFR) non- AmericanOrdered By: Lupe Hernandez on 04-09-2022 GFR/1.73 sq M.predicted among non-blacks MDRD (S/P/Bld) [Vol rate/Area] > 60 mL/Min [facility] Globulin Calc (S) [Mass/Vol] Ordered By: Lupe Hernandez on 04-09-2022 Globulin (S) [Mass/Vol] 4.2 g/dL [facility] Glucose Glucometer (BldC) [M ass/Vol]Ordered By: Lupe Hernandez on 04-09-2022 Glucose [Mass/Vol] 178 mg/dL [facility] Comment on above: Random Glucose Refer ence Range is dependent on time and content of last meal. Glucose of more than 200 mg/dL in a nonstressed, ambulatory subject supports the diagnosis of Diabetes Mellitus. Hematocrit Auto (Bld) [Volum e fraction]Ordered By: Lupe Hernandez on 04-09-2022 Hematocrit (Bld) [Volume fraction] 33.6 % 38.8-50.0 [facility] Laboratory - Hematology and Cell countsOrdered By: Lupe Hernandez on 04-09-2022 Nucleated RBC/100 WBC (Bld) [Ratio] 0.2 % 0-0.5 [facility] Lymphocytes Auto (Bld) [#/Vo l]Ordered By: Lupe Hernandez on 04-09-2022 Lymphocytes (Bld) [#/Vol] 1.0 10*3/uL 1.00-4.8 [facility] Lymphocytes/100 WBC Auto (Bl d)Ordered By: Lupe Hernandez on 04-09-2022 Lymphocytes/100 WBC (Bld) 18.3 % . [facility] MCH Auto (RBC) [Entitic mass ]Ordered By: Lupe Hernandez on 04-09-2022 MCH (RBC) [Entitic mass] 31.1 pg 27.5-35.2 [facility] MCHC Auto (RBC) [Mass/Vol]Or dered By: Lupe Hernandez on 04-09-2022 MCHC (RBC) [Mass/Vol] 33.5 g/dL 32.5-35.6 [facility] MCV Auto (RBC) [Entitic vol] Ordered By: Lupe Hernandez on 04-09-2022 MCV (RBC) [Entitic vol] 93.0 fL 83.5-101 [facility] Monocytes Auto (Bld) [#/Vol] Ordered By: Lupe Hernandez on 04-09-2022 Monocytes (Bld) [#/Vol] 0.6 10*3/uL 0.0-0.8 [facility] Monocytes/100 WBC Auto (Bld) Ordered By: Lupe Hernandez on 04-09-2022 Monocytes/100 WBC (Bld) 11.0 % . [facility] Neutrophils Auto (Bld) [#/Vo l]Ordered By: Lupe Hernandez on 04-09-2022 Neutrophils (Bld) [#/Vol] 3.4 10*3/uL 1.8-7.7 [facility] Neutrophils/100 WBC Auto (Bl d)Ordered By: Lupe Hernandez on 04-09-2022 Neutrophils/100 WBC (Bld) 63.8 % . [facility] No Panel InformationOrdered By: Lupe Hernandez on 04-09-2022 Bedside Glucose Comment Glu2: cleaned meter [facility] Estimated GFR () > 60 mL/Min [facility] Comment on above: GFR estimated refere nce range: According to KDOQI guidelines, <60 ml/min/1.73m2 is sufficient to diagnose a patient with chronic kidney disease. Pharmacy Creatinine Clearance (Chem 130.27 [facility] Platelet mean volume Auto (B ld) [Entitic vol]Ordered By: Lupe Hernandez on 04-09-2022 Platelet mean volume (Bld) [Entitic vol] 7.6 fL 6.6-10.1 [facility] Platelets Auto (Bld) [#/Vol] Ordered By: Lupe Hernandez on 04-09-2022 Platelets (Bld) [#/Vol] 214 10*3/uL 150-450 [facility] Protein [Mass/volume] in Ser um or PlasmaOrdered By: Lupe Hernandez on 04-09-2022 Protein [Mass/Vol] 6.1 g/dL 6.1-7.9 [facility] RBC Auto (Bld) [#/Vol]Ordere d By: Lupe Hernandez on 04-09-2022 RBC (Bld) [#/Vol] 3.61 10*6/uL 3.90-5.60 [facility] [place] Serum or plasma alanine vivas otransferase measurement without P-5'-P (enzymatic activiOrdered By: Lupe Hernandez on 04-09-2022 ALT No additional P-5'-P [Catalytic activity/Vol] 21 U/L 10-60 [facility] Serum or plasma albumin/glob ulin mass ratioOrdered By: Lupe Hernandez on 04-09-2022 Albumin/Globulin [Mass ratio] 0.5 {ratio} [facility] Serum or plasma alkaline dilan sphatase measurement (enzymatic activity/volume)Ordered By: Lupe Hernandez on 04-09-2022 ALP [Catalytic activity/Vol] 89 U/L 32-92 [facility] Serum or plasma anion gap de terminationOrdered By: Lupe Hernandez on 04-09-2022 Anion gap [Moles/Vol] 8.4 mmol/L 6.0-15.0 [facility] Serum or plasma aspartate am inotransferase measurement (enzymatic activity/volume)Ordered By: Lupe Hernandez on 04-09-2022 AST [Catalytic activity/Vol] 27 U/L 10-42 [facility] Serum or plasma calcium osbaldo urement (mass/volume)Ordered By: Lupe Hernandez on 04-09-2022 Calcium [Mass/Vol] 8.2 mg/dL 8.2-10.2 [facility] Serum or plasma chloride judith surement (moles/volume)Ordered By: Lupe Hernandez on 04-09-2022 Chloride [Moles/Vol] 98 mmol/L 95-114 [facility] Serum or plasma glucose osbaldo urement (mass/volume)Ordered By: Lupe Hernandez on 04-09-2022 Glucose [Mass/Vol] 150 mg/dL 70-100 [facility] Comment on above: ADA recommended refe rence range Random Glucose Reference Range is dependent on time and content of last meal. Glucose of more than 200 mg/dL in a nonstressed, ambulatory subject supports the diagnosis of Diabetes Mellitus. Serum or plasma potassium me asurement (moles/volume)Ordered By: Lupe Hernandez on 04-09-2022 Potassium [Moles/Vol] 3.4 mmol/L 3.5-5.1 [facility] Serum or plasma sodium measu rement (moles/volume)Ordered By: Lupe Hernandez on 04-09-2022 Sodium [Moles/Vol] 134 mmol/L 136-146 [facility] Serum or plasma total biliru bin measurement (mass/volume)Ordered By: Lupe Hernandez on 04-09-2022 Bilirubin [Mass/Vol] 0.7 mg/dL 0.3-1.2 [facility] Serum or plasma total carbon dioxide measurement (moles/volume)Ordered By: Lupe Hernandez on 04-09-2022 CO2 [Moles/Vol] 31.0 mmol/L 22.0-30.0 [facility] Serum or plasma urea nitroge n measurement (mass/volume)Ordered By: Lupe Hernandez on 04-09-2022 Urea nitrogen [Mass/Vol] 9 mg/dL 9- [facility] Bacterial blood cultureOrder ed By: Luke Moran on 04-07-2022 Bacteria identified Cx Nom (Bld) NO GROWTH 5 DAYS [facility] Laboratory - Chemistry and C hemistry - challengeOrdered By: Luke Moran on 08-25-2022 CO2 [Moles/Vol] 29.4 mmol/L 23.0-27.0 [facility] HCO3 (Bld) [Moles/Vol] 28.1 mmol/L 23.0-29.0 [facility] No Panel InformationOrdered By: Luke Moran on 04-04-2022 Arterial Blood Base Excess 3.4 mmol/L -3.0-3.0 [facility] Arterial Blood Oxygen Content 6.4 mmol/L 6.6-9.7 [facility] Arterial Blood Oxygen Saturation 92.1 % 95.0-100.0 [facility] Arterial Blood Partial Pressure CO2 43.2 mm[Hg] 35.0-45.0 [facility] Arterial Blood Partial Pressure O2 61.4 mm[Hg] 80.0-100.0 [facility] Arterial Blood pH 7.43 7.35-7.45 [facility] Blood Gas Critical Value See comment [facility] Comment on above: Critical Value kaufman d on: 04/04/2022 at 09:33 Blood Gas Liter Flow 2 L/min [facility] Blood Gas Sample Site Left radial Fi [facility] FiO2 28 % [facility] Oxygen Delivery Device Nasal cannula [facility] Automated erythrocytes count in urine sediment (number/area)Ordered By: Jair Gabriel on 04-03-2022 RBC Auto (Urine sed) [#/Area] 3-4 [HPF] 0-4 [facility] Automated leukocytes count i n urine sediment (number/area)Ordered By: Jair Gabriel on 04-03-2022 WBC Auto (Urine sed) [#/Area] None seen [HPF] 0-4 [facility] Bilirubin Test strip Ql (U)O rdered By: Jair Gabriel on 04-03-2022 Bilirubin Ql (U) Negative Negative [facility] Color Auto (U)Ordered By: Tam Gabriel on 04-03-2022 Color (U) Yellow Yellow [facility] Hepatitis B virus surface Ag [Presence] in Serum or Plasma by ImmunoassayOrdered By: Luke Moran on 04-03-2022 HBV surface Ag IA Ql Negative Negative [facility] Comment on above: Performed at: [facility] [address] [id number] Patient Care Specialist: Genaro Becerril PhD, Phone: [phone] IgA [Mass/volume] in Serum o r PlasmaOrdered By: Luke Moran on 04-03-2022 IgA [Mass/Vol] 697 mg/dL 61-437 [facility] IgG [Mass/volume] in Serum o r PlasmaOrdered By: Luke Moran on 04-03-2022 IgG [Mass/Vol] 1107 mg/dL 603-1613 [facility] IgM [Mass/volume] in Serum o r PlasmaOrdered By: Luke Moran on 04-03-2022 IgM [Mass/Vol] 91 mg/dL 20-172 [facility] Comment on above: Performed at: [facility] [address] [id number] Patient Care Specialist: Genaro Becerril PhD, Phone: [phone] Immunofixation for UrineOrde red By: Luke Moran on 04-03-2022 Interpretation Immunofixation (U) [Interp] See comment . [facility] Comment on above: No monoclonality det ected. Performed at: [facility] [id number] Patient Care Specialist: Genaro Becerril PhD, Phone: [phone] Immunoglobulin light chains. kappa.free [Mass/volume] in SerumOrdered By: Luke Moran on 04-03-2022 Immunoglobulin light chains.kappa.free (S) [Mass/Vol] 93.9 mg/L 3.3-19.4 [facility] Immunoglobulin light chains. kappa.free/Immunoglobulin light chains.lambda.free [MassOrdered By: Luke Moran on 04-03-2022 Immunoglobulin light chains.kappa.free/Immuno globulin light chains.lambda.free (S) [Mass ratio] 1.52 0.26-1.65 [facility] Comment on above: Performed at: [facility] [address] [id number] Patient Care Specialist: Genaro Becerril PhD, Phone: [phone] Immunoglobulin light chains. lambda.free [Mass/volume] in Serum or PlasmaOrdered By: Luke Moran on 04-03-2022 Immunoglobulin light chains.lambda.free [Mass/Vol] 61.6 mg/L 5.7-26.3 [facility] Ketones Auto test strip (U) [Mass/Vol]Ordered By: Jair Gabriel on 04-03-2022 Ketones (U) [Mass/Vol] Negative Negative [facility] Laboratory - UrinalysisOrder ed By: Jair Gabriel on 04-03-2022 Hyaline casts LM Ql (Urine sed) 0-8 [LPF] 0-8 [facility] Nitrite Test strip Ql (U)Ord ered By: Jair Gabriel on 04-03-2022 Nitrite Ql (U) Negative Negative [facility] No Panel InformationOrdered By: Luke Moran on 04-03-2022 Hepatitis C Interpretation See comment . [facility] Comment on above: Negative Not infected with HCV, unless recent infection is suspected or other evidence exists to indicate HCV infection. Hepatitis C RNA Quantitative N/A [facility] Serum Immunofixation See comment . [facility] Comment on above: Immunofixation shows IgG monoclonal protein with lambda light chain specificity. Protein Auto test strip (U) [Mass/Vol]Ordered By: Jair Gabriel on 04-03-2022 Protein (U) [Mass/Vol] Negative Negative [facility] Random cortisol measurementO rdered By: Luke Moran on 04-03-2022 Cortisol [Mass/Vol] 5.8 ug/dL [facility] [place] Comment on above: Reference range: AM 6 - 24 ug/dl PM <10 ug/dl Serum hepatitis B virus surf calin antibody detectionOrdered By: Luke Moran on 04-03-2022 HBV surface Ab Ql (S) Reactive . [facility] Comment on above: Non Reactive: Incons istent [...] IA [Rel units/Vol] 0.1 s/co ratio 0.0-0.9 [facility] Comment on above: --- 04/04/22 0736 -- - Hep C Ab previously reported as: <0.1 s/co ratio Specific gravity Auto test s trip (U) [Rel density]Ordered By: Jair Gabriel on 04-03-2022 Specific gravity (U) [Rel density] 1.035 1.001-1.030 [facility] Squamous epithelial cells de tection in urine sediment by light microscopyOrdered By: Jair aGbriel on 04-03-2022 Epithelial cells.squamous LM Ql (Urine sed) None seen [HPF] 0-2 [facility] TSH DL <= 0.005 mIU/L QnOrde red By: Luke Moran on 04-03-2022 TSH Qn 22.19 m[IU]/L 0.45-5.33 [facility] Urine bacteria detection by automated methodOrdered By: Jair Gabriel on 04-03-2022 Bacteria Auto Ql (U) None seen None Seen [facility] Urine clarity by refractomet ry automatedOrdered By: Jair Gabriel on 04-03-2022 Clarity Refractometry automated (U) Clear Clear [facility] Urine glucose measurement by automated test strip (mass/volume)Ordered By: Jair Gabriel on 04-03-2022 Glucose Auto test strip (U) [Mass/Vol] 100 mg/dL Normal [facility] Urine hemoglobin detection b y automated test stripOrdered By: Jair Gabriel on 04-03-2022 Hemoglobin Auto test strip Ql (U) 3+ Negative [facility] Urine leukocyte esterase det ection by automated test stripOrdered By: Jair Gabriel on 04-03-2022 Leukocyte esterase Auto test strip Ql (U) Negative Negative [facility] Urobilinogen Auto test strip (U) [Mass/Vol]Ordered By: Jair Gabriel on 04-03-2022 Urobilinogen (U) [Mass/Vol] Normal mg/dL Normal [facility] pH Auto test strip (U)Ordere d By: Jair Gabriel on 04-03-2022 pH (U) 5.0 [pH] 5.0-9.0 [facility] Activated partial thrombopla stin time (aPTT) in platelet poor plasma by coagulation aOrdered By: Jair Gabriel on 04-02-2022 aPTT Coag (PPP) [Time] 24.8 s 25.1-36.5 [facility] COVID-19 Positive/NegativeOr dered By: Jair Gabriel on 04-02-2022 SARS-CoV-2 (COVID-19) N gene MANJIT+probe Ql (Resp) Negative Negative [facility] Comment on above: Testing for SARS-CoV -2 by RT-PCR This test was developed and its performance characteristics determined by [employer]) and validated at the [facility]. This test has not been FDA cleared [...] (COVID-19) Ag IA.rapid Ql (Resp) Negative Negative [facility] Comment on above: This is a duplicate Cristal SARS Antigen (GONZALO) result to be used for statistical tracking purpose only. Laboratory - Chemistry and C hemistry - challengeOrdered By: Jair Gabriel on 04-02-2022 Natriuretic peptide B (Bld) [Mass/Vol] 55.0 pg/mL 5-100 [facility] Laboratory - CoagulationOrde red By: Jair Gabriel on 04-02-2022 PT Coag (PPP) [Time] 11.9 s 9.0-12.9 [facility] No Panel InformationOrdered By: Luke Moran on 04-02-2022 D-Dimer Quantitative (PE/DVT) 2825 ng/mL 0-243 [facility] Comment on above: The reference range for [...] Jair Gabriel on 04-02-2022 SARS Antigen (LFIA) [facility] [place] Platelet poor plasma interna tional normalized ratio (INR) by coagulation assay (relatOrdered By: Jair Gabriel on 04-02-2022 INR Coag (PPP) [Relative time] 1.1 {INR} [facility] Comment on above: INR Therapeutic Rang e [...] High sensitivity method [Mass/Vol] 26 pg/mL 0-20 [facility] Albumin [Mass/volume] in Ser um or PlasmaOrdered By: Sarah Osuna on 03-16-2022 Albumin [Mass/Vol] 1.9 g/dL 3.2-5.5 [facility] Creatinine and Glomerular fi ltration rate.predicted panel (S/P/Bld)Ordered By: Sarah Osuna on 03-16-2022 Creatinine [Mass/Vol] 1.27 mg/dL 0.64-1.27 [facility] Estimated glomerular filtrat ion rate (GFR) non- AmericanOrdered By: Sarah Osuna on 03-16-2022 GFR/1.73 sq M.predicted among non-blacks MDRD (S/P/Bld) [Vol rate/Area] 57 mL/Min [facility] Glucose Glucometer (BldC) [M ass/Vol]Ordered By: Xin Phan on 03-16-2022 Glucose [Mass/Vol] 377 mg/dL [facility] Comment on above: Random Glucose Refer ence Range is dependent on time and content of last meal. Glucose of more than 200 mg/dL in a nonstressed, ambulatory subject supports the diagnosis of Diabetes Mellitus. No Panel InformationOrdered By: Sarah Osuna on 03-16-2022 Estimated GFR () > 60 mL/Min [facility] Comment on above: GFR estimated refere nce range: According to KDOQI guidelines, <60 ml/min/1.73m2 is sufficient to diagnose a patient with chronic kidney disease. Pharmacy Creatinine Clearance (Chem 90.76 [facility] Serum or plasma calcium osbaldo urement (mass/volume)Ordered By: Sarah Osuna on 03-16-2022 Calcium [Mass/Vol] 8.4 mg/dL 8.2-10.2 [facility] Serum or plasma chloride judith surement (moles/volume)Ordered By: Sarah Osuna on 03-16-2022 Chloride [Moles/Vol] 99 mmol/L 95-114 [facility] Serum or plasma glucose osbaldo urement (mass/volume)Ordered By: Sarah Osuna on 03-16-2022 Glucose [Mass/Vol] 265 mg/dL 70-100 [facility] Comment on above: Delta: 480 on -1040 ADA recommended reference range Random Glucose Reference Range is dependent on time and content of last meal. Glucose of more than 200 mg/dL in a nonstressed, ambulatory subject supports the diagnosis of Diabetes Mellitus. Serum or plasma potassium me asurement (moles/volume)Ordered By: Xin Phan on 03-16-2022 Potassium [Moles/Vol] 4.0 mmol/L 3.5-5.1 [facility] Serum or plasma sodium measu rement (moles/volume)Ordered By: Sarah Osuna on 03-16-2022 Sodium [Moles/Vol] 132 mmol/L 136-146 [facility] Serum or plasma total carbon dioxide measurement (moles/volume)Ordered By: Sarah Osuna on 03-16-2022 CO2 [Moles/Vol] 25.4 mmol/L 22.0-30.0 [facility] Serum or plasma urea nitroge n measurement (mass/volume)Ordered By: Sarah Osuna on 03-16-2022 Urea nitrogen [Mass/Vol] 24 mg/dL 9-23 [facility] Serum phospholipid phosphoru s measurement (mass/volume)Ordered By: Xin Phan on 03-16-2022 Phospholipid phosphorus (S) [Mass/Vol] 2.0 mg/dL 2.5-4.6 [facility] No Panel InformationOrdered By: Xin Phan on 03-15-2022 Bedside Glucose Comment See comment [facility] Comment on above: Glu2: WILL NOTIFY DR /RN Bedside Glucose #2 Comment Cleaned meter [facility] Automated erythrocytes count in urine sediment (number/area)Ordered By: Sarah Osuna on 03-14-2022 RBC Auto (Urine sed) [#/Area] 0-1 [HPF] 0-4 [facility] Automated leukocytes count i n urine sediment (number/area)Ordered By: Sarah Osuna on 03-14-2022 WBC Auto (Urine sed) [#/Area] 0-1 [HPF] 0-4 [facility] Basophils Auto (Bld) [#/Vol] Ordered By: Leah Huang on 03-14-2022 Basophils (Bld) [#/Vol] 0.0 10*3/uL 0.0-0.2 [facility] Basophils/100 WBC Auto (Bld) Ordered By: Leah Huang on 03-14-2022 Basophils/100 WBC (Bld) 0.2 % . [facility] Bilirubin Auto test strip Ql (U)Ordered By: Sarah Osuna on 03-14-2022 Bilirubin Ql (U) Negative Negative [facility] Blood hemoglobin measurement (mass/volume)Ordered By: Leah Huang on 03-14-2022 Hemoglobin (Bld) [Mass/Vol] 11.6 g/dL 13.0-17.0 [facility] Blood leukocytes automated c ount (number/volume)Ordered By: Leah Huang on 03-14-2022 WBC (Bld) [#/Vol] 6.0 10*3/uL 4.5-11.0 [facility] Creatinine [Mass/volume] in UrineOrdered By: Sarah Osuna on 03-14-2022 Creatinine (U) [Mass/Vol] 76.9 mg/dL [facility] Comment on above: No reference range e stablished Eosinophils Auto (Bld) [#/Vo l]Ordered By: Leah Huang on 03-14-2022 Eosinophils (Bld) [#/Vol] 0.1 10*3/uL 0.0-0.45 [facility] Eosinophils/100 WBC Auto (Bl d)Ordered By: Leah Huang on 03-14-2022 Eosinophils/100 WBC (Bld) 1.4 % . [facility] Erythrocyte distribution wid th Auto (RBC) [Ratio]Ordered By: Leah Huang on 03-14-2022 Erythrocyte distribution width (RBC) [Ratio] 15.8 % 12.0-14.8 [facility] Globulin Calc (S) [Mass/Vol] Ordered By: Leah Huang on 03-14-2022 Globulin (S) [Mass/Vol] 3.8 g/dL [facility] Glucose mean value [Mass/vol ume] in Blood Estimated from glycated hemoglobinOrdered By: Leah Huang on 03-14-2022 Average glucose Estimated from glycated hemoglobin (Bld) [Mass/Vol] 329 mg/dL [facility] Hematocrit Auto (Bld) [Volum e fraction]Ordered By: Leah Huang on 03-14-2022 Hematocrit (Bld) [Volume fraction] 35.1 % 38.8-50.0 [facility] Hemoglobin A1c percentageOrd ered By: Leah Huang on 03-14-2022 HbA1c (Bld) [Mass fraction] 13.1 % 4.3-5.6 [facility] Comment on above: Increased risk for d iabetes: 5.7 - 6.4 diabetes: >6.4 glycemic control for adults with diabetes: <7.0 Ketones Auto test strip (U) [Mass/Vol]Ordered By: Sarah Osuna on 03-14-2022 Ketones (U) [Mass/Vol] Negative Negative Fi [facility] Laboratory - Hematology and Cell countsOrdered By: Leah Huang on 03-14-2022 Nucleated RBC/100 WBC (Bld) [Ratio] 0.1 % 0-0.5 [facility] Laboratory - UrinalysisOrder ed By: Sarah Osuna on 03-14-2022 Hyaline casts LM Ql (Urine sed) 0-8 [LPF] 0-8 [facility] Lymphocytes Auto (Bld) [#/Vo l]Ordered By: Leah Huang on 03-14-2022 Lymphocytes (Bld) [#/Vol] 1.4 10*3/uL 1.00-4.8 [facility] Lymphocytes/100 WBC Auto (Bl d)Ordered By: Leah Huang on 03-14-2022 Lymphocytes/100 WBC (Bld) 22.7 % . [facility] MCH Auto (RBC) [Entitic mass ]Ordered By: Leah Huang on 03-14-2022 MCH (RBC) [Entitic mass] 29.9 pg 27.5-35.2 [facility] MCHC Auto (RBC) [Mass/Vol]Or dered By: Leah Huang on 03-14-2022 MCHC (RBC) [Mass/Vol] 33.0 g/dL 32.5-35.6 [facility] MCV Auto (RBC) [Entitic vol] Ordered By: Leah Huang on 03-14-2022 MCV (RBC) [Entitic vol] 90.4 fL 83.5-101 [facility] Monocytes Auto (Bld) [#/Vol] Ordered By: Leah Huang on 03-14-2022 Monocytes (Bld) [#/Vol] 0.5 10*3/uL 0.0-0.8 [facility] Monocytes/100 WBC Auto (Bld) Ordered By: Leah Huang on 03-14-2022 Monocytes/100 WBC (Bld) 9.0 % . [facility] Neutrophils Auto (Bld) [#/Vo l]Ordered By: Leah Huang on 03-14-2022 Neutrophils (Bld) [#/Vol] 4.0 10*3/uL 1.8-7.7 [facility] Neutrophils/100 WBC Auto (Bl d)Ordered By: Leah Huang on 03-14-2022 Neutrophils/100 WBC (Bld) 66.7 % . [facility] Platelet mean volume Auto (B ld) [Entitic vol]Ordered By: Leah Huang on 03-14-2022 Platelet mean volume (Bld) [Entitic vol] 8.9 fL 6.6-10.1 [facility] Platelets Auto (Bld) [#/Vol] Ordered By: Leah Huang on 03-14-2022 Platelets (Bld) [#/Vol] 143 10*3/uL 150-450 [facility] Protein Auto test strip (U) [Mass/Vol]Ordered By: Sarah Osuna on 03-14-2022 Protein (U) [Mass/Vol] Negative Negative Fi [facility] Protein [Mass/volume] in Ser um or PlasmaOrdered By: Leah Huang on 03-14-2022 Protein [Mass/Vol] 5.8 g/dL 6.1-7.9 [facility] Protein [Mass/volume] in Uri neOrdered By: Sarah Osuna on 03-14-2022 Protein (U) [Mass/Vol] 13 mg/dL 0-[address] [facility] RBC Auto (Bld) [#/Vol]Ordere d By: Leah Huang on 03-14-2022 RBC (Bld) [#/Vol] 3.88 10*6/uL 3.90-5.60 [facility] [place] Serum or plasma alanine vivas otransferase measurement without P-5'-P (enzymatic activiOrdered By: Leah Huang on 03-14-2022 ALT No additional P-5'-P [Catalytic activity/Vol] 35 U/L 10-60 [facility] Serum or plasma albumin/glob ulin mass ratioOrdered By: Leah Huang on 03-14-2022 Albumin/Globulin [Mass ratio] 0.5 {ratio} [facility] Serum or plasma alkaline dilan sphatase measurement (enzymatic activity/volume)Ordered By: Leah Huang on 03-14-2022 ALP [Catalytic activity/Vol] 120 U/L 32-92 [facility] Serum or plasma aspartate am inotransferase measurement (enzymatic activity/volume)Ordered By: Leah Huang on 03-14-2022 AST [Catalytic activity/Vol] 36 U/L 10-42 [facility] Serum or plasma total biliru bin measurement (mass/volume)Ordered By: Leah Huang on 03-14-2022 Bilirubin [Mass/Vol] 1.0 mg/dL 0.3-1.2 [facility] Squamous epithelial cells de tection in urine sediment by light microscopyOrdered By: Sarah Osuna on 03-14-2022 Epithelial cells.squamous LM Ql (Urine sed) None seen [HPF] 0-2 [facility] Urea nitrogen [Mass/volume] in UrineOrdered By: Leah Huang on 03-14-2022 Urea nitrogen (U) [Mass/Vol] 454 mg/dL Not Estab. [facility] Comment on above: Performed at: [address] [id number] Patient Care Specialist: Genaro Becerril PhD, Phone: [phone] Urine appearanceOrdered By: Sarah Osuna on 03-14-2022 Appearance (U) Clear Clear [facility] Urine bacteria detection by automated methodOrdered By: Sarah Osuna on 03-14-2022 Bacteria Auto Ql (U) None seen None Seen [facility] Urine colorOrdered By: Sarah Osuna on 03-14-2022 Color (U) Yellow Yellow [facility] Urine glucose measurement by automated test strip (mass/volume)Ordered By: Sarah Osuna on 03-14-2022 Glucose Auto test strip (U) [Mass/Vol] >=1000 mg/dL Normal [facility] Urine hemoglobin detection b y automated test stripOrdered By: Sarah Osuna on 03-14-2022 Hemoglobin Auto test strip Ql (U) 2+ Negative [facility] Urine leukocyte esterase det ection by automated test stripOrdered By: Sarah Osuna on 03-14-2022 Leukocyte esterase Auto test strip Ql (U) Negative Negative [facility] Urine nitrite detection by a utomated test stripOrdered By: Sarah Osuna on 03-14-2022 Nitrite Auto test strip Ql (U) Negative Negative [facility] Urine protein/creatinine rat ioOrdered By: Sarah Osuna on 03-14-2022 Protein/Creatinine (U) [Ratio] 169 mg/g{Cre} 0-200 [facility] Urine sodium measurement (mo les/volume)Ordered By: Leah Huang on 03-14-2022 Sodium (U) [Moles/Vol] 20 mmol/L [facility] Comment on above: No reference range e stablished Urobilinogen Auto test strip (U) [Mass/Vol]Ordered By: Sarah Osuna on 03-14-2022 Urobilinogen (U) [Mass/Vol] Normal mg/dL Normal [facility] Yeast detection in urine sed iment by light microscopyOrdered By: Sarah Osuna on 03-14-2022 Yeast LM Ql (Urine sed) Budding yeast [HPF] Non e Seen [facility] Comment on above: 1+ BUDDING YEAST pH Auto test strip (U)Ordere d By: Sarah Osuna on 03-14-2022 pH (U) 1.020 [pH] 1.001-1.030 [facility] pH (U) 5.5 [pH] 5.0-9.0 [facility] POINT OF CARE GLUCOSEon 01-10 Glucose [Mass/Vol] 161 mg/dL Critically high 74-[address] [facility] Comment on above: Performed By: #### T , BMP #### [facility] [address] [place] [address] Dr. Ladan Deihl POINT OF CARE GLUCOSEon 01-09 Glucose [Mass/Vol] 358 mg/dL Critically high -106 [facility] [place] Comment on above: Performed By: #### A 1C #### [facility] [address] [place] [address] Dr. Ladan Diehl Glucose [Mass/Vol] 279 mg/dL Critically high -106 [facility] [place] Comment on above: Performed By: #### A 1C #### [facility] [address] [place] [address] Dr. Ladan Diehl Glucose [Mass/Vol] 247 mg/dL Critically high [facility]106 [facility] [place] Comment on above: Performed By: #### T SH, BMP #### [facility] [address] [place] [address] Dr. Ladan Diehl Glucose [Mass/Vol] 357 mg/dL Critically high -106 [facility] [place] Comment on above: Performed By: #### A 1C #### [facility] [address] [place] [address] Dr. Ladan Diehl PROF CHEM 8 (BAS METB)on Anion gap [Moles/Vol] 11.1 mmol/L Normal [facility] Comment on above: Performed By: #### T STEFF, BMP #### [facility] [address] [place] [address] Dr. Ladan Diehl Calcium [Mass/Vol] 8.8 mg/dL Normal 8.5-10.1 [facility] Comment on above: Performed By: #### T SH, BMP #### [facility] [address] [place] [address] Dr. Ladan Diehl Chloride [Moles/Vol] 99 mmol/L Normal 98-107 [facility] Comment on above: Performed By: #### T SH, BMP #### [facility] [address] [place] [address] Dr. Ldaan Diehl CO2 [Moles/Vol] 27.2 mmol/L Normal 21.0-32.0 [facility] Comment on above: Performed By: #### T SH, BMP #### [facility] [address] [address] [address] Ladan Diehl Creatinine [Mass/Vol] 1.59 mg/dL Critically high 0.70-1.30 [facility] Comment on above: Performed By: #### T SH, BMP #### [facility] [address] [address] [address] Ladan Diehl EGFR-AF PALESTINIAN 53 mL/min/1.73m2 Critically low >=60 [facility] Comment on above: Performed By: #### T SH, BMP #### [facility] [address] [address] [address] Ladan Diehl EGFR-NON AF PALESTINIAN 44 mL/min/1.73m2 Critically low >=60 [facility] Comment on above: Performed By: #### T SH, BMP #### [facility] [address] [place] [address] Dr. Ladan Diehl Glucose [Mass/Vol] 284 mg/dL Critically high 74-106 [facility] [place] Comment on above: Performed By: #### T SH, BMP #### [facility] [address] [place] [address] Dr. Ladan Diehl Potassium [Moles/Vol] 4.2 mmol/L Normal 3.5-5.1 [facility] Comment on above: Performed By: #### T SH, BMP #### [facility] [address] [place] [address] Dr. Ladan Diehl Sodium [Moles/Vol] 133 mmol/L Critically low 136-[address] [facility] Comment on above: Performed By: #### T SH, BMP #### [facility] [address] [place] [address] Dr. Ladan Diehl Urea nitrogen [Mass/Vol] 22.0 mg/dL Critically high 7.0-18 .0 [facility] Comment on above: Performed By: #### T SH, BMP #### [facility] [address] [place] [address] Dr. Ladan Diehl Urea nitrogen/Creatinine [Mass ratio] 13.8 mg/mg Normal [facility] Comment on above: Performed By: #### T SH, BMP #### [facility] [address] [address] [address] Ladan Diehl TROPONIN, HIGH SENSITIVITYon 01-24-2022 HSTROP 13.7 pg/mL Normal 4.0-76.1 [facility] Comment on above: Result Comment: CUT- OFF POINTS HAVE BEEN ESTABLISHED BASED ON THE FOURTH UNIVERSAL DEFINITIONS OF MYOCARDIAL INFARCTION. THE UPPER REFERENCE LIMIT (URL) OF TROPONIN, DEFINED THE 99TH PERCENTILE OF cTnI DISTRIBUTION IN A REFERENCE POPULATION, HAS BEEN CONFIRMED THE DECISION THRESHOLD FOR CA DIAGNOSIS. Performed By: #### H STROPN #### [facility] [address] [address] [address] Ladan Diehl TSHon 01-24-2022 TSH 0.381 uIU/mL Normal 0.358-3.740 [facility] Comment on above: Performed By: #### T SH, BMP #### [facility] [address] [place] [address] Dr. Ladan Diehl US LIT DOP LEG [...] CAROL YIP Date: 2022-01-24 09:51 Normal [facility] BNPon 01-23-2022 Natriuretic peptide B (Bld) [Mass/Vol] 262.0 pg/mL Normal <=900.0 [facility] Comment on above: Performed By: #### A 1C #### [facility] [address] [place] [address] Dr. Ladan Diehl CBC AUTO DIFFon 01-23-2022 BASO # 0.1 103/ul Normal 0.0-0.1 [facility] Comment on above: Performed By: #### T SH, BMP #### [facility] [address] [place] [address] Dr. Ladan Diehl Basophils/100 WBC (Bld) 0.8 % Normal 0.2-2.0 [facility] [place] Comment on above: Performed By: #### T SH, BMP #### [facility] [address] [place] [address] Dr. Ladan Diehl EO # 0.3 103/ul Normal 0.0-0.7 [facility] Comment on above: Performed By: #### T SH, BMP #### [facility] [address] [place] [address] Dr. Ladan Diehl Eosinophils/100 WBC (Bld) 4.4 % Normal 0.9-7.0 [facility] Comment on above: Performed By: #### T SH, BMP #### [facility] [address] [place] [address] Dr. Ladan Diehl Erythrocyte distribution width (RBC) [Ratio] 14.0 % Normal 11.0-15.0 [facility] Comment on above: Performed By: #### T SH, BMP #### [facility] [address] [place] [address] Dr. Ladan Diehl Hematocrit (Bld) [Volume fraction] 38.3 % Critically low 42.0-54.0 [facility] Comment on above: Performed By: #### T SH, BMP #### [facility] [address] [place] [address] Dr. Ladan Diehl Hemoglobin (Bld) [Mass/Vol] 12.0 g/dL Critically low 14.0-18.0 [facility] Comment on above: Performed By: #### T SH, BMP #### [facility] [address] [place] [address] Dr. Ladan Diehl IG # 0.03 10e3/ul Normal 0.00-0.03 [facility] Comment on above: Performed By: #### T SH, BMP #### [facility] [address] [place] [address] Dr. Ladan Diehl IG % 0.5 % Normal 0.0-0.5 [facility] Comment on above: Performed By: #### T SH, BMP #### [facility] [address] [address] [address] Ladan Diehl LYMPH # 1.2 103/ul Normal 1.2-3.8 [facility] Comment on above: Performed By: #### T SH, BMP #### [facility] [address] [place] [address] Dr. Ladan Diehl Lymphocytes/100 WBC (Bld) 20.2 % Critically low 20.5-60.0 [facility] Comment on above: Performed By: #### T SH, BMP #### [facility] [address] [place] [address] Dr. Ladan Diehl MANUAL DIFF REQ NO Normal [facility] Comment on above: Performed By: #### T SH, BMP #### [facility] [address] [place] [address] Dr. Ladan Diehl MCH (RBC) [Entitic mass] 29.6 pg Normal 25.9-34.0 [facility] Comment on above: Performed By: #### T SH, BMP #### [facility] [address] [place] [address] Dr. Ladan Diehl MCHC (RBC) [Mass/Vol] 31.3 g/dL Normal 29.9-35.2 [facility] Comment on above: Performed By: #### T SH, BMP #### [facility] [address] [place] [address] Dr. Ladan Diehl MCV (RBC) [Entitic vol] 94.6 fL Critically high 80.0-94 .0 [facility] Comment on above: Performed By: #### T SH, BMP #### [facility] [address] [place] [address] Dr. Ladan Diehl MONO # 0.7 103/ul Normal 0.3-0.8 [facility] Comment on above: Performed By: #### T SH, BMP #### [facility] [address] [place] [address] Dr. Ladan Diehl Monocytes/100 WBC (Bld) 10.7 % Normal 1.7-12.0 [facility] Comment on above: Performed By: #### T SH, BMP #### [facility] [address] [place] [address] Dr. Ladan Diehl NEUT # 3.9 103/ul Normal 1.4-6.5 [facility] Comment on above: Performed By: #### T SH, BMP #### [facility] [address] [place] [address] Dr. Ladan Diehl Neutrophils/100 WBC (Bld) 63.4 % Normal 43.0-75.0 [facility] Comment on above: Performed By: #### T SH, BMP #### [facility] [address] [place] [address] Dr. Ladan Diehl Platelet mean volume (Bld) [Entitic vol] 10.0 fL Normal 9.5-13.5 [facility] Comment on above: Performed By: #### T SH, BMP #### [facility] [address] [place] [address] Dr. Ladan Diehl PLT 171 103/ul Normal 150-450 [facility] Comment on above: Performed By: #### T SH, BMP #### [facility] [address] [place] [address] Dr. Ladan Diehl RBC 4.05 106/ul Critically low 4.70-6.10 [facility] Comment on above: Performed By: #### T SH, BMP #### [facility] [address] [place] [address] Dr. Ladan Diehl WBC 6.1 103/ul Normal 4.0-11.0 [facility] Comment on above: Performed By: #### T SH, BMP #### [facility] [address] [place] [address] Dr. Ladan Diehl CTA CHEST WO W CONon 15-2 022 CTA CHEST WO W CON EXAM: [...] XIN BUI Date: 2022-01-23 19:35 Normal [facility] Covid-19 PCR (CVDTB)on 01-09 SARS-CoV-2 (COVID-19) RNA MANJIT+probe Ql (Unsp spec) Not detected Normal NOT DETECTED [facility] Comment on above: Result Comment: When diagnostic [...] for this test is supported by the Office Automation Clerk of Health and Human Service's declaration that [...] used). Performed By: #### A 1C #### [facility] [address] [place] [address] Dr. Ladan Diehl LACTATE/LACTIC ACIDon 2021 Lactate [Moles/Vol] 1.6 mmol/L Normal 0.4-1.9 [facility] Comment on above: Performed By: #### L ACT #### [facility] [address] [place] [address] Dr. Ladan Diehl PROF 14(COMP METB)on 022 Albumin [Mass/Vol] 2.7 g/dL Critically low 3.4-5.0 [facility] Comment on above: Performed By: #### A 1C #### [facility] [address] [place] [address] Dr. Ladan Diehl Albumin/Globulin [Mass ratio] 0.5 {ratio} Normal [facility] Comment on above: Performed By: #### A 1C #### [facility] [address] [place] [address] Dr. Ladan Diehl ALP [Catalytic activity/Vol] 120 U/L Critically high 46-116 [facility] Comment on above: Performed By: #### A 1C #### [facility] [address] [place] [address] Dr. Ladan Diehl ALT [Catalytic activity/Vol] 23 U/L Normal 16-63 [facility] Comment on above: Performed By: #### A 1C #### [facility] [address] [place] [address] Dr. Ladan Diehl Anion gap [Moles/Vol] 10.3 mmol/L Normal [facility] Comment on above: Performed By: #### A 1C #### [facility] [address] [place] [address] Dr. Ladan Diehl AST [Catalytic activity/Vol] 29 U/L Normal 15-37 [facility] Comment on above: Performed By: #### A 1C #### [facility] [address] [place] [address] Dr. Ladan Diehl Bilirubin [Mass/Vol] 1.0 mg/dL Normal 0.2-1.0 [facility] Comment on above: Performed By: #### A 1C #### [facility] [address] [address] [address] Ladan Diehl Calcium [Mass/Vol] 8.8 mg/dL Normal 8.5-10.1 [facility] Comment on above: Performed By: #### A 1C #### [facility] [address] [address] [address] Ladan Diehl Chloride [Moles/Vol] 101 mmol/L Normal 98-107 [facility] Comment on above: Performed By: #### A 1C #### [facility] [address] [address] [address] Ladan Diehl CO2 [Moles/Vol] 30.8 mmol/L Normal 21.0-32.0 [facility] Comment on above: Performed By: #### A 1C #### [facility] [address] [place] [address] Dr. Ladan Diehl Creatinine [Mass/Vol] 1.40 mg/dL Critically high 0.70-1.30 [facility] Comment on above: Performed By: #### A 1C #### [facility] [address] [address] [address] Ladan Diehl EGFR-AF PALESTINIAN >60 Normal >=60 [facility] Comment on above: Performed By: #### A 1C #### [facility] [address] [place] [address] Dr. Ladan Diehl EGFR-NON AF PALESTINIAN 51 mL/min/1.73m2 Critically low >=60 [facility] Comment on above: Performed By: #### A 1C #### [facility] [address] [place] [address] Dr. Ladan Diehl Globulin (S) [Mass/Vol] 5.3 g/dL Normal [facility] Comment on above: Performed By: #### A 1C #### [facility] [address] [place] [address] Dr. Ladan Diehl Glucose [Mass/Vol] 125 mg/dL Critically high 74-106 [facility] Comment on above: Performed By: #### A 1C #### [facility] [address] [place] [address] Dr. Ladan Diehl Potassium [Moles/Vol] 4.1 mmol/L Normal 3.5-5.1 [facility] Comment on above: Performed By: #### A 1C #### [facility] [address] [place] [address] Dr. Ladan Diehl Protein [Mass/Vol] 8.0 g/dL Normal 6.4-8.2 [facility] Comment on above: Performed By: #### A 1C #### [facility] [address] [address] [address] Ladan Diehl Sodium [Moles/Vol] 138 mmol/L Normal 136-145 [facility] Comment on above: Performed By: #### A 1C #### [facility] [address] [place] [address] Dr. Ladan Diehl Urea nitrogen [Mass/Vol] 20.0 mg/dL Critically high 7.0-18 .0 [facility] Comment on above: Performed By: #### A 1C #### [facility] [address] [place] [address] Dr. Ladan Diehl Urea nitrogen/Creatinine [Mass ratio] 14.3 mg/mg Normal [facility] Comment on above: Performed By: #### A 1C #### [facility] [address] [place] [address] Dr. Ladan Diehl PROTIMEon 01-23-2022 INR Coag (PPP) [Relative time] 1.02 {INR} Normal [facility] Comment on above: Performed By: #### P T, PTT #### [facility] [address] [place] [address] Dr. Ladan Diehl INR GUIDELINES SEE BELOW Normal [facility] Comment on above: Result Comment: KALI RED INR: 2.0 - 3.0 CONDITIONS NOT LISTED BELOW 2.5 - 3.5 FOR PROSTHETIC HEART VALVE REPLACEMENT 2.5 - 3.5 RECURRENT THROMBOSIS Performed By: #### P T, PTT #### [facility] [address] [place] [address] Dr. Ladan Diehl PT Coag (PPP) [Time] 11.0 s Normal 9.0-11.6 [facility] Comment on above: Performed By: #### P T, PTT #### [facility] [address] [place], [place] [address] Dr. Ladan Diehl PTTon 01-23-2022 aPTT Coag (Bld) [Time] 27.6 s Normal 22.3-36.2 [facility] Comment on above: Performed By: #### P T, PTT #### [facility] [address] [address] [address] Ladan Diehl TROPONIN, HIGH SENSITIVITYon 01-23-2022 HSTROP 10.4 pg/mL Normal 4.0-76.1 [facility] Comment on above: Result Comment: CUT- OFF POINTS HAVE BEEN ESTABLISHED BASED ON THE FOURTH UNIVERSAL DEFINITIONS OF MYOCARDIAL INFARCTION. THE UPPER REFERENCE LIMIT (URL) OF TROPONIN, DEFINED THE 99TH PERCENTILE OF cTnI DISTRIBUTION IN A REFERENCE POPULATION, HAS BEEN CONFIRMED THE DECISION THRESHOLD FOR CA DIAGNOSIS. Performed By: #### A 1C #### [facility] [address] [place] [address] ABD/PELV W CONon [...] by: TANNER PEDRAZA Date: 2022-01-18 23:39 Normal [facility] XR CHEST 1 Von 01-19-2022 XR CHEST [...] ROSELIA RIVERA Date: 2022-01-18 22:16 Normal [facility] XR KNEE LT 4V or >on 022 [...] JENNIFER CASTILLO Date: 2022-01-18 23:06 Normal [facility] CBC AUTO DIFFon 01-18-2022 BASO # 0.1 103/ul Normal 0.0-0.1 [facility] Comment on above: Performed By: #### C BC #### [facility] [address] [address] [address] Ladan Diehl Basophils/100 WBC (Bld) 0.8 % Normal 0.2-2.0 [facility] [place] Comment on above: Performed By: #### C BC #### [facility] [address] [address] [address] Ladan Diehl EO # 0.4 103/ul Normal 0.0-0.7 [facility] Comment on above: Performed By: #### C BC #### [facility] [address] [place] [address] Dr. Ladan Diehl Eosinophils/100 WBC (Bld) 4.3 % Normal 0.9-7.0 [facility] Comment on above: Performed By: #### C BC #### [facility] [address] [place] [address] Dr. Ladan Diehl Erythrocyte distribution width (RBC) [Ratio] 14.4 % Normal 11.0-15.0 [facility] Comment on above: Performed By: #### C BC #### [facility] [address] [place] [address] Dr. Ladan Diehl Hematocrit (Bld) [Volume fraction] 37.2 % Critically low 42.0-54.0 [facility] Comment on above: Performed By: #### C BC #### [facility] [address] [place] [address] Dr. Ladan Diehl Hemoglobin (Bld) [Mass/Vol] 11.9 g/dL Critically low 14.0-18.0 [facility] Comment on above: Performed By: #### C BC #### [facility] [address] [place] [address] Dr. Ladan Diehl IG # 0.04 10e3/ul Critically high 0.00-0.03 [facility] Comment on above: Performed By: #### C BC #### [facility] [address] [place] [address] Dr. Ladan Diehl IG % 0.5 % Normal 0.0-0.5 [facility] Comment on above: Performed By: #### C BC #### [facility] [address] [place] [address] Dr. Ladan Diehl LYMPH # 2.2 103/ul Normal 1.2-3.8 [facility] Comment on above: Performed By: #### C BC #### [facility] [address] [place] [address] Dr. Ladan Diehl Lymphocytes/100 WBC (Bld) 26.2 % Normal 20.5-60.0 [facility] Comment on above: Performed By: #### C BC #### [facility] [address] [place] [address] Dr. Ladan Diehl MANUAL DIFF REQ NO Normal [facility] Comment on above: Performed By: #### C BC #### [facility] [address] [place] [address] Dr. Ladan Diehl MCH (RBC) [Entitic mass] 30.4 pg Normal 25.9-34.0 [facility] Comment on above: Performed By: #### C BC #### [facility] [address] [place] [address] Dr. Ladan Diehl MCHC (RBC) [Mass/Vol] 32.0 g/dL Normal 29.9-35.2 [facility] Comment on above: Performed By: #### C BC #### [facility] [address] [place] [address] Dr. Ladan Diehl MCV (RBC) [Entitic vol] 94.9 fL Critically high 80.0-94 .0 [facility] Comment on above: Performed By: #### C BC #### [facility] [address] [place] [address] Dr. Ladan Diehl MONO # 0.9 103/ul Critically high 0.3-0.8 [facility] Comment on above: Performed By: #### C BC #### [facility] [address] [place] [address] Dr. Ladan Diehl Monocytes/100 WBC (Bld) 10.3 % Normal 1.7-12.0 [facility] [place] Comment on above: Performed By: #### C BC #### [facility] [address] [place] [address] Dr. Ladan Diehl NEUT # 5.0 103/ul Normal 1.4-6.5 [facility] Comment on above: Performed By: #### C BC #### [facility] [address] [place] [address] Dr. Ladan Diehl Neutrophils/100 WBC (Bld) 57.9 % Normal 43.0-75.0 [facility] Comment on above: Performed By: #### C BC #### [facility] [address] [place] [address] Dr. Ladan Diehl Platelet mean volume (Bld) [Entitic vol] 9.9 fL Normal 9.5-13.5 [facility] Comment on above: Performed By: #### C BC #### [facility] [address] [place] [address] Dr. Ladan Diehl PLT 180 103/ul Normal 150-450 [facility] Comment on above: Performed By: #### C BC #### [facility] [address] [place] [address] Dr. Ladan Diehl RBC 3.92 106/ul Critically low 4.70-6.10 [facility] Comment on above: Performed By: #### C BC #### [facility] [address] [place] [address] Dr. Ladan Diehl WBC 8.6 103/ul Normal 4.0-11.0 [facility] Comment on above: Performed By: #### C BC #### [facility] [address] [place] [address] Dr. Ladan Diehl PROF 14(COMP METB)on 022 Albumin [Mass/Vol] 2.6 g/dL Critically low 3.4-5.0 [facility] Comment on above: Performed By: #### C MP #### [facility] [address] [place] [address] Dr. Ladan Diehl Albumin/Globulin [Mass ratio] 0.5 {ratio} Normal [facility] Comment on above: Performed By: #### C MP #### [facility] [address] [place] [address] Dr. Ladan Diehl ALP [Catalytic activity/Vol] 184 U/L Critically high 46-116 [facility] Comment on above: Performed By: #### C MP #### [facility] [address] [place] [address] Dr. Ladan Diehl ALT [Catalytic activity/Vol] 24 U/L Normal 16-63 [facility] Comment on above: Performed By: #### C MP #### [facility] [address] [place] [address] Dr. Ladan Diehl Anion gap [Moles/Vol] 10.1 mmol/L Normal [facility] Comment on above: Performed By: #### C MP #### [facility] [address] [place] [address] Dr. Ladan Diehl AST [Catalytic activity/Vol] 22 U/L Normal 15-37 [facility] Comment on above: Performed By: #### C MP #### [facility] [address] [address] [address] Ladan Diehl Bilirubin [Mass/Vol] 0.5 mg/dL Normal 0.2-1.0 [facility] Comment on above: Performed By: #### C MP #### [facility] [address] [address] [address] Ladan Diehl Calcium [Mass/Vol] 8.6 mg/dL Normal 8.5-10.1 [facility] Comment on above: Performed By: #### C MP #### [facility] [address] [place] [address] Dr. Ladan Diehl Chloride [Moles/Vol] 101 mmol/L Normal 98-107 [facility] Comment on above: Performed By: #### C MP #### [facility] [address] [address] [address] Ladan Diehl CO2 [Moles/Vol] 30.9 mmol/L Normal 21.0-32.0 [facility] Comment on above: Performed By: #### C MP #### [facility] [address] [place] [address] Dr. Ladan Diehl Creatinine [Mass/Vol] 1.72 mg/dL Critically high 0.70-1.30 [facility] Comment on above: Performed By: #### C MP #### [facility] [address] [address] [address] Ladan Diehl EGFR-AF PALESTINIAN 49 mL/min/1.73m2 Critically low >=60 [facility] Comment on above: Performed By: #### C MP #### [facility] [address] [place] [address] Dr. Ladan Diehl EGFR-NON AF PALESTINIAN 40 mL/min/1.73m2 Critically low >=60 [facility] Comment on above: Performed By: #### C MP #### [facility] [address] [place] [address] Dr. Ladan Diehl Globulin (S) [Mass/Vol] 5.2 g/dL Normal [facility] Comment on above: Performed By: #### C MP #### [facility] [address] [address] [address] Ladan Diehl Glucose [Mass/Vol] 253 mg/dL Critically high 74-106 [facility] Comment on above: Performed By: #### C MP #### [facility] [address] [address] [address] Ladan Diehl Potassium [Moles/Vol] 4.0 mmol/L Normal 3.5-5.1 [facility] Comment on above: Performed By: #### C MP #### [facility] [address] [place] [address] Dr. Ladan Diehl Protein [Mass/Vol] 7.8 g/dL Normal 6.4-8.2 [facility] Comment on above: Performed By: #### C MP #### [facility] [address] [place] [address] Dr. Ladan Diehl Sodium [Moles/Vol] 138 mmol/L Normal 136-145 [facility] Comment on above: Performed By: #### C MP #### [facility] [address] [place] [address] Dr. Ladan Diehl Urea nitrogen [Mass/Vol] 30.0 mg/dL Critically high 7.0-18 .0 [facility] Comment on above: Performed By: #### C MP #### [facility] [address] [place] [address] Dr. Ladan Diehl Urea nitrogen/Creatinine [Mass ratio] 17.4 mg/mg Normal [facility] Comment on above: Performed By: #### C MP #### [facility] [address] [place] [address] Dr. Ladan Diehl Vital Signs Date Time Vital Sign Value Performing Clinician Facility 05-01-2022 06:00-0400 Diastolic blood pressure 58 mm[Hg] [facility] 05-01-2022 06:00-0400 Heart rate 89 /min [facility] 05-01-2022 06:00-0400 Respiratory rate 20 /min [facility] 05-01-2022 06:00-0400 SaO2% (BldA) [Mass fraction] 91 % [facility] Comment on above: 2 L NC at baseline 05-01-2022 06:00-0400 Systolic blood pressure 86 mm[Hg] [facility] 04-12-2022 15:01-0400 Body temperature 98.3 [degF] MD Ayden Freeman Work Phone: [facility] 04-12-2022 15:01-0400 Diastolic blood pressure 68 mm[Hg] MD Ayden Freeman Work Phone: [facility] 04-12-2022 15:01-0400 Heart rate 90 /min MD Ayden Freeman Work Phone: [facility] 04-12-2022 15:01-0400 Respiratory rate 20 /min MD Ayden Freeman Work Phone: [facility] 04-12-2022 15:01-0400 SaO2% (BldA) [Mass fraction] 92 % MD Ayden Freeman Work Phone: [facility] 04-12-2022 15:01-0400 Systolic blood pressure 130 mm[Hg] MD Ayden Freeman Work Phone: [facility] 04-12-2022 10:48-0400 Body height 177.8 cm MD Ayden Freeman Work Phone: [facility] 04-12-2022 10:48-0400 Body weight 154.22 kg MD Ayden Freeman Work Phone: [facility] 04-09-2022 12:00-0400 Diastolic blood pressure 81 mm[Hg] MD Ayden Freeman Work Phone: [facility] 04-09-2022 12:00-0400 Heart rate 99 /min MD Ayden Freeman Work Phone: [facility] 04-09-2022 12:00-0400 Inhaled oxygen flow rate 2 L/min MD Ayden Freeman Work Phone: [facility] 04-09-2022 12:00-0400 Respiratory rate 18 /min MD Ayden Freeman Work Phone: [facility] 04-09-2022 12:00-0400 SaO2% (BldA) [Mass fraction] 98 % MD Ayden Freeman Work Phone: [facility] 04-09-2022 12:00-0400 Systolic blood pressure 127 mm[Hg] MD Ayden Freeman Work Phone: [facility] 04-09-2022 05:22-0400 Body weight 162 kg MD Ayden Freeman Work Phone: [facility] 04-08-2022 20:00-0400 Inhaled oxygen concentration 30 % MD Ayden Freeman Work Phone: [facility] 04-08-2022 14:56-0400 Body height 177.8 cm MD Ayden Freeman Work Phone: [facility] 04-08-2022 08:11-0400 Body temperature 98 [degF] MD Ayden Freeman Work Phone: [facility] 03-16-2022 11:59-0400 Diastolic blood pressure 90 mm[Hg] MD Ayden Freeman Work Phone: [facility] 03-16-2022 11:59-0400 Heart rate 95 /min MD Ayden Freeman Work Phone: [facility] 03-16-2022 11:59-0400 Respiratory rate 18 /min MD Ayden Freeman Work Phone: [facility] 03-16-2022 11:59-0400 SaO2% (BldA) [Mass fraction] 95 % MD Ayden Freeman Work Phone: [facility] 03-16-2022 11:59-0400 Systolic blood pressure 147 mm[Hg] MD Ayden Freeman Work Phone: [facility] 03-16-2022 08:07-0400 Body temperature 97.8 [degF] MD Ayden Freeman Work Phone: [facility] 03-16-2022 06:00-0400 Body weight 163.5 kg MD Ayden Freeman Work Phone: [facility] 03-14-2022 17:24-0400 Body height 177.8 cm MD Ayden Freeman Work Phone: [facility] 03-14-2022 16:00-0400 Inhaled oxygen flow rate 1 L/min MD Ayden Freeman Work Phone: [facility] Encounters Encounter Date Encounter Type Care Provider Facility Start: 04-05-2024 ambulatory Facility:Óscar Underwood Start: 03-02-2024 ambulatory Facility:Tirso Gabriel Start: 09-16-2023 [...] Start: 05-01-2022 End: 05-01-2022 ambulatory [facility], [facility] Start: 05-01-2022 End: 05-01-2022 Emergency department patient visit [facility] Emergency Triage, Treat and Transport Comment on above: Arrived Start: 04-24-2022 End: 04-30-2022 ambulatory UNKNOWN PROVIDER Facility:[facility] Start: 04-12-2022 End: 04-12-2022 Emergency department patient visit Ramesh Byrd Facility:[facility] Start: 04-12-2022 End: 04-12-2022 Emergency department patient visit MD Ayden Freeman Work Phone: [facility] Start: 04-10-2022 End: 04-17-2022 ambulatory UNKNOWN PROVIDER Facility:[facility] Start: 04-02-2022 End: 04-09-2022 Evaluation and management of inpatient MD Ayden Freeman Work Phone: [facility] Start: 03-15-[address] AYDEN FREEMAN Facil ity:[facility]1 Start: 03-14-2022 End: 03-14-2022 Patient encounter procedure JEFF CARLOS [facility] [place] Start: 03-14-2022 End: 03-16-2022 Evaluation and management of inpatient MD Ayden Freeman Work Phone: [facility] [place] [facility] Start: 02-15-[address] AYDEN FREEMAN Facil ity:[facility] Start: 02-01-2022 End: 02-01-2022 ambulatory HINA DIOP . Facility: Start: 01-24-2022 End: 01-24-[address] CAROL YIP Facility:[facility] Start: 01-18-2022 End: 01-19-[address] MASON CASTRO Facility:[facility] Procedures Date Procedure Procedure Detail Performing Clinician Start: 12-19-[address] AYDEN FRIEND Comment on above: Performed By: #### P [facility] #### [facility] [address] [place] [address] Dr. Ladan Diehl Start: 04-12-2022 Plain chest [...] Start: 05-11-2022 Influenza vaccination Influenza Vaccine (#1) [facility] Start: 04-12-2022 Plain chest X-ray XR chest 2V* [facility] Start: 04-12-2022 End: 04-12-2022 Emergency department patient visit Departed Emergency [facility] Start: 04-09-2022 [facility] Work Phone: Start: 04-09-2022 [facility] Work Phone: Start: 04-02-2022 End: 04-09-2022 Evaluation and management of inpatient Abrasion of elbow [facility] Start: 04-02-2022 CT angiography of thorax CT angio chest PE protocol [facility] Start: 04-02-2022 Hospital admission [facility] Work Phone: Start: 04-02-2022 X-ray of left knee XR knee LT 2V [facility] Start: 04-02-2022 Plain chest X-ray XR chest 1V portable [facility] Start: 04-02-2022 Plain X-ray of left hip XR hip LT min 2V(w/wo pelvis)* [facility] Start: 04-02-2022 Plain X-ray of left elbow XR elbow LT min 3V* [facility] Start: 03-16-2022 [facility] Work Phone: Start: 03-14-2022 Referral to surgeon assistant [facility] Work Phone: Start: 03-14-2022 Hospital admission [facility] Work Phone: Start: 12-09-2021 [...] Screening for malignant neoplasm of colon [facility] Patient Education [facility] Work Phone: Patient referral [facility] Work Phone: Payers Date Payer Category Payer Self-pay [id number] 2021 Medicare [facility] [id number] 2021-Present [phone] [address] [address] [place] [address] Medicare [id number] 2021 Private Health Insurance [id number] 2017 Unknown [id number] 1959 Medicaid [id number] 1959 Medicare [id number] 1957 Unknown [id number] 2.16.840.1.225199.3.579.2. 732 1957 Unknown [id number] 2.16.840.1.494839.3.579.2. 732 1957 Unknown [id number] 2.16.840.1.138606.3.579.2. 732 1957 Unknown [id number] 2.16.840.1.470149.3.579.2. 732 1957 Unknown [id number] 2.16.840.1.240958.3.579.2. 593 1957 Unknown [id number] 2.16.840.1.658422.3.579.2. 593 1957 Unknown [id number] 2.16.840.1.921515.3.579.2. 593 1957 Unknown [id number] 2.16.840.1.867262.3.579.2. 593 1957 Unknown [id number] 2.16.840.1.151558.3.579.2. 593 1957 Unknown [id number] 2.16.840.1.225635.3.579.2. 593 1957 Unknown [id number] 2.16.840.1.315747.3.579.2. 593 1957 Unknown [id number] 2.16.840.1.362278.3.579.2. 593 1957 Unknown [id number] 2.16.840.1.628425.3.579.2. 593 1957 Unknown [id number] 2.16.840.1.936271.3.579.2. 1259 Medicare Medicare [id number] Medicare Medicare Psych-IP Part A [id number] Medicare [place] [facility] PFFS [id number] Medicare [employer] [facility] [id number] Unknown [facility] [id number] Unknown [id number] 2.16.840.1.451680.3.579.2. 531 Social History Date Type Detail Facility Tobacco smoking status No Smoking Status Entered [facility] Sex Assigned At Male [facility] Start: 04-02-2022 End: 04-12-2022 Tobacco smoking status WVIS Never smoked tobacco (finding) [facility] Start: 1955 [address] Male 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 [facility] Work Phone: 03-16-2022 Functional status Patient at [facility] Work Phone: Mental Status Date Assessment Result Facility 04-09-2022 Cognitive function Cognitive Sta tus Patient at [facility] Work Phone: 03-16-2022 Cognitive function Cognitive Sta tus Patient at [facility] Work Phone: Clinical Notes [...] 1955 SSN: [id number] EMS Agency: [facility] [x] Verbal consent obtained [] Implied [...] Peter Molina DO documented in this encounter [facility] 04-08-2022 Progress note Note Date/Time April 08, 2022 1:38pm [facility] [address] [place] [address] Hospitalist Progress Note Signed Patient: Evelin Patterson MR#: [id number] : 1955 Acct:[id number] Age/Sex: 66 / M Adm Date: 2 Loc: 3T Room: [address] [place] [address] Type: ADM INOo Attending Dr: Lupe Hernandez [...] Hypothyroidism: Plan Patient currently awaiting placement to detention facility. Remains in normal sinus rhythm. He [...] signed by Lupe Hernandez MD> 04/08/22 1338 [facility] Work Phone: 1(609) 635-133608-28-2022 Discharge summary Author Luke Moran [facility] April 07, 2022 4:16pm Note Date/Time April 05, 2022 10 :05am [facility] EN[facility] [address] [place], [place] [id number] Discharge Summary Signed with Addenda Patient: Evelin Patterson MR#: [id number] : 1955 Acct:[id number] Age/Sex: 66 / M Adm Date: 2 Loc: Room: [address] [place] [address]: Luke Moran MD Copies to: [...] discharged home in stable condition to a detention facility. Medical therapy was adjusted as noted [...] 10:24: POC Glucose 271 04/03/22 07:34: Free Balta LC, Quant 93.9 H, Free Lambda LC, Quant 61.6 H, Free Balta/Lambda Ratio 1.52 Exam Physical Exam Vital Signs: Temp Pulse Resp BP Pulse Ox O2 Del Method O2 Flow Rate 97.9 F 85 20 134/76 90 L Room Air 2 04/05/22 08:00 04/05/22 08:00 04/05/22 08:00 04/05/22 08:00 04/05/22 08:00 04/05/22 08:00 04/05/22 08:00 FiO2 30 04/04/22 22:34 Discharge Plan Discharge Plan Patient Disposition: Long-Term Facility Activity: Ambulate as Tolerated Diet: Diabetic and Low-Sodium Additional Instructions: Please have company providing CPAP machine fit the patient with a mask that he can tolerate. Use a CPAP of 8 whenever asleep until the sleep study performed. Long-Term Facility to manage care: - Full code [...] 150 0RF Rx Instructions: As Directed (DME) Gmjji Lancet-Glucose Test Strp 30 gauge Combo Pack [...] Instructions: Sliding Scale ACHS Other Ambulatory Orders: DISEASE AND INSECT CONTROL BOSS polysom procedure (Routine) Timeframe: 3 Weeks Location: Determined by Patient Ordered By: Luke Moran Follow Up: [facility] [Outside] ([facility] or Central Scheduling will call you to arrange date/time for sleep study. ) Documented By: Luke Moran MD 04/07/22 0367 Signed By: <Electronically signed by Luke Moran MD> 04/07/22 1610 [facility] Work Phone: 1(628) 745-839308-27-2022 Progress note Author Luke Moran [facility] April 06, 2022 2:50pm Note Date/Time April 06, 2022 2: 50pm [facility] EN[facility] [address] [place] [address] Hospitalist Progress Note Signed Patient: Evelin Patterson MR#: [id number] : 1955 Acct:[id number] Age/Sex: 66 / M Adm Date: 2 Loc: 3T Room: [address] [place] [address] Type: ADM INOo Attending Dr: Luke Moran [...] signed by Luke Moran MD> 04/06/22 1450 [facility] Work Phone: 1(981) 358-399208-25-2022 Progress note Author Luke Moran [facility] April 04, 2022 4:25pm Note Date/Time April 04, 2022 4: 25pm [facility] EN[facility] [address] [place] [address] Hospitalist Progress Note Signed Patient: Evelin Patterson MR#: [id number] : 1955 Acct:[id number] Age/Sex: 66 / M Adm Date: 2 Loc: 3T Room: [address] [place] [address] Type: ADM INOo Attending Dr: Luke Moran [...] By: <Electronically signed by Luke Moran MD> 04/04/228 [facility] Work Phone: 1(508) 991-342508-24-2022 Progress note Author Luke Moran [facility] April 03, 2022 2:05pm Note Date/Time April 03, 2022 2: 05pm [facility] EN[facility] [address] [place] [address] Hospitalist Progress Note Signed Patient: Evelin Patterson MR#: [id number] : 1955 Acct:[id number] Age/Sex: 66 / M Adm Date: 2 Loc: Room: [address] [place] [address] Type: ADM INOo Attending Dr: Luke Moran [...] Flush Documented By: Luke Moran MD 04/03/22 4117 Signed By: <Electronically signed by Luke Moran MD> 04/03/22 0220 [facility] Work Phone: 1([phone] 346-871308-23-2022 History and physical note Author Luke Moran [facility] April 02, 2022 7:48pm Note Date/Time April 02, 2022 7: 45pm [facility] EN[facility] [address] [place] [address] Hospitalist H&P Signed Patient: Evelin Patterson MR#: [id number] : 1955 Acct:[id number] Age/Sex: 66 / M Adm Date: 2 Loc: ER Room: Type: [facility] ER Attending Dr: Copies to: MD [...] Type: None Social History Comments: Lives [facility] Medications and Allergies Allergies metformin Adverse Reaction [...] gauge and blood glucose strips combo pack (Gmjji Lancets) #120 ea 03/16/22 [Rx] pen needle, diabetic 29 gauge x 1/2 (Pentips) #150 ea 08/06/22 [Rx] Exam Physical Exam Vital Signs: Temp [...] % (Auto) 8.7 % (.) 04/02/22 17:51 Sharkey % (Auto) 12.2 % (.) 04/02/22 17:51 Eos % (Auto) 2.4 % (.) 04/02/22 17:51 Baso % (Auto) 0.6 % (.) 04/02/22 17:51 Neut # (Auto) 6.4 x10E3/uL (1.8-7.7) 04/02/22 17:51 Lymph # (Auto) 0.7 x10E3/uL (1.00-4.8) L 04/02/22 17:51 Sharkey # (Auto) 1.0 x10E3/uL (0.0-0.8) H 04/02/22 [...] <Electronically signed by Luke Moran MD> 04/02/221947 [facility] Work Phone: 1(344) 778-549108-06-2022 Discharge summary Author Xin Phan [facility] March 16, 2022 9:37am Note Date/Time March 16, 2022 9:[address] [facility] EN[facility] [address] [place] [address] Discharge Summary Signed Patient: Evelin Patterson MR#: [id number] : 1955 Acct:[id number] Age/Sex: 66 / M Adm Date: 2 Loc: Room: [address] [place] [address]: Xin Phan MD Copies to: [...] anxiety and depression who was transferred from [facility] for acute kidney injury.? Patient presented with generalized weakness and disorientation at [facility]. He was noted to have blood [...] or dizziness.? No fevers Paperwork from [facility] reviewed, chest x-ray with no acute cardiopulmonary process.? Sodium 129.? Potassium 3.3.? Creatinine 2.52.? WBC 6.8.? Hemoglobin 12.5.? Glucose 4.34.? Patient will be admitted by the hospitalist team for further evaluation and management. Patient was positive for COVID, patient was alert oriented x3 at [facility], patient states that he has been having [...] untreated sleep apnea Instructions: Blood Glucose Monitoring, [facility] COVID-19 Discharge Instructions Prescriptions: New Levemir FlexTouch [...] signed by Xin Phan MD> 03/16/22 0937 [facility] Work Phone: [phone]) 253-268908-05-2022 Progress note Author [facility] March 15, 2022 3:43pm Note Date/Time March 15, 2022 3:[address] [facility] EN[facility] [address] [place] [address] Nephrology Progress Note Signed Patient: Evelin Patterson MR#: [id number] : 1955 Acct:[id number] Age/Sex: 66 / M Adm Date: 2 Loc: Room: [address] [place] [address] Type: ADM IN Attending Dr: Xin Phan MD Copies to: ~ Date of Service: 03/15/2022 Subjective Subjective Narrative: This is 66-year-old male patient with a past medical history of morbid obesity, endocarditis, paroxysmal A. fib, diabetes type 2, anxiety and depression and chronic kidney disease stage III. Patient presented to [facility] with feeling weak and disoriented for 2 weeks which has gotten worse. Patient has been having cough with decreased appetite and loss of taste for a week. Lab at [facility] shows acute kidney injury with creatinine up to 4.3 mg/dL along with hyperglycemia with initial blood glucose level more than 400. Patient's blood pressure was in the 80s at [facility]. Patient was given IV fluid [...] 500 Mg Tablet) 500 mg PO DAILY [facility] Stop: 03/14/23 08:59 Last Admin: 03/15/22 08:34 Dose: 500 mg Dexamethasone 2 mg/ (Dexamethasone 4 mg) 6 mg PO DAILY [facility] Stop: 03/22/23 08:59 Last Admin: 03/15/22 [...] 5,000 Unit/Ml Vial) 5,000 unit SUBCUT Q12HR [facility] Stop: 03/14/23 08:59 Last Admin: 03/15/22 08:34 Dose: 5,000 unit Sodium Chloride (0.9% Sodium Chloride 1,000 Ml) 1,000 mls @ 100 mls/hr IV .[id number] Stop: 03/14/23 01:59 Last Admin: 03/15/22 06:46 Dose: 100 mls/hr Insulin Aspart (Insulin Aspart 300 Units/3 Ml Insuln.Pen) 0 units SUBCUT TID.WM.HS [facility]; Protocol Stop: 03/14/23 07:59 Last Admin: 03/15/22 12:06 Dose: 9 units Insulin Detemir (Insulin Detemir 300 Units/3 Ml Insuln.Pen) 40 units SUBCUT DAILY.WITH.BKFAST [facility] Stop: 03/16/23 07:59 Zinc Sulfate (Zinc Sulfate 220 Mg Capsule) 220 mg PO DAILY [facility] Stop: 03/14/23 08:59 Last Admin: 03/15/22 [...] question Documented By: Sarah Osuna MD 03/15/22 8579 Signed By: <Electronically signed by Sarah Osuna MD> 03/15/22 1542 [facility] Work Phone: 1(120) 987-497708-05-2022 Progress note Author Xin Phan [facility] March 15, 2022 12:44pm Note Date/Time March 15, 2022 12: 44pm [facility] EN[facility] [address] [place] [address] Hospitalist Progress Note Signed Patient: Evelin Patterson MR#: [id number] : 1955 Acct:[id number] Age/Sex: 66 / M Adm Date: 2 Loc: Room: [address] [place] [address] Type: ADM IN Attending Dr: Xin Phan MD Copies to: ~ Date of Service: 03/15/2022 Subjective Subjective Narrative: Patient is a 66-year-old male, with a PMHx of Morbid obesity, endocarditis in August of this year, atrial fibrillation, type 2 diabetes, hypertension, liver cirrhosis, anxiety and depression who was transferred from [facility] for acute kidney injury. Patient presented with generalized weakness and disorientation at [facility]. He was noted to have blood [...] headache or dizziness. No fevers Paperwork from [facility] reviewed, chest [...] secondary to poor oral intake. Presented at [facility] with low blood pressures in the 80s. ?Creatinine at [facility] 4.34. Baseline creatinine ~1.4 - Nephrology [...] to diabetic diet ?Blood sugar at [facility] was in the 400s ? Will [...] <Electronically signed by Xin Phan MD> 03/15/22 3669 [facility] Work Phone: 1(938) 556-355308-04-2022 Progress note Author Renato Looney [facility] March 14, 2022 2:14pm Note Date/Time March 14, 2022 2:[address] [facility] EN[facility] [address] [place] [address] Progress Note Signed Patient: Evelin Patterson MR#: [id number] : 1955 Acct:[id number] Age/Sex: 66 / M Adm Date: 2 Loc: Room: [address] [place] [address] Type: ADM IN Attending Dr: Renato Looney MD Copies to: ~ Date of Service: 03/14/2022 Progress Narrative Note PROGRESS NOTE Progress Note: Patient seen and evaluated by radiator repairer early this morning and also by myself. Briefly, patient is a 66-year-old male past medical history significant for obesity, atrial fibrillation, hypertension, diabetes, liver cirrhosis, mood disorder and recent endocarditis infection who presented to outlying facility due to generalized weakness found to have COVID-19 and acute kidney injury and was transferred to [facility] for further evaluation and management. [...] signed by Renato Looney MD> 03/14/22 1414 [facility] Work Phone: 1(764) 600-112408-04-2022 Consult note Author Sarah Osuna [facility] March 14, 2022 12:30pm Note Date/Time March 14, 2022 12: 30pm [facility] [address] [place] [address] Nephrology Consult Note Signed Patient: Evelin Patterson MR#: [id number] : 1955 Acct:[id number] Age/Sex: 66 / M Adm Date: 2 Loc: Room: [address] [place] [address] Type: ADM IN Attending Dr: Renato Looney [...] kidney disease stage III. Patient presented to [facility] with feeling weak and disoriented for 2 weeks which has gotten worse. Patient has been having cough with decreased appetite and loss of taste for a week. Lab at [facility] shows acute kidney injury with creatinine up to 4.3 mg/dL along with hyperglycemia with initial blood glucose level more than 400. Patient's blood pressure was in the 80s at [facility]. Patient was given IV fluid [...] Type: None Social History Comments: Lives in [facility] in [facility] Medications & Allergies Allergies metformin Adverse Reaction [...] 500 Mg Tablet) 500 mg PO DAILY [facility] Stop: 03/14/23 08:59 Last Admin: 03/14/22 08:34 Dose: 500 mg Dexamethasone 2 mg/ (Dexamethasone 4 mg) 6 mg PO DAILY [facility] Stop: 03/22/23 08:59 Last Admin: 03/14/22 [...] 5,000 Unit/Ml Vial) 5,000 unit SUBCUT Q12HR [facility] Stop: 03/14/23 08:59 Last Admin: 03/14/22 08:39 Dose: 5,000 unit Sodium Chloride (0.9% Sodium Chloride 1,000 Ml) 1,000 mls @ 100 mls/hr IV .[id number] Stop: 03/14/23 01:59 Last Admin: 03/14/22 03:26 Dose: 100 mls/hr Insulin Aspart (Insulin Aspart 300 Units/3 Ml Insuln.Pen) 0 units SUBCUT TID.WM.HS [facility]; Protocol Stop: 03/14/23 07:59 Last Admin: 03/14/22 12:06 Dose: Not Given Insulin Detemir (Insulin Detemir 300 Units/3 Ml Insuln.Pen) 35 units SUBCUT DAILY.WITH.BKFAST [facility] Stop: 03/14/23 07:59 Last Admin: 03/14/22 08:34 Dose: 35 units Zinc Sulfate (Zinc Sulfate 220 Mg Capsule) 220 mg PO DAILY [facility] Stop: 03/14/23 08:59 Last Admin: 03/14/22 [...] Michael Tinajero M.D.03/14/2022 8:24 AM Dictation Location: [place] [address] Any impression(s) listed above is documentation that [...] <Electronically signed by Sarah Osuna MD> 03/14/22 [facility] [facility] Work Phone: 1(843) 386-812608-04-2022 History and physical note Author Mary Jane Riley [facility] March 14, 2022 6:40am Note Date/Time March 14, 2022 2:[address] [facility] [address] [place] [address] Hospitalist H&P Signed Patient: Evelin Patterson MR#: [id number] : 1955 Acct:[id number] Age/Sex: 66 / M Adm Date: 2 Loc: Room: [address] [place] [address] Type: ADM IN Attending Dr: Mary Jane Hanna MD Copies to: MD Leah Marin APRN Marc Naderer, MD~ HPI DATE OF EXAMINATION: 03/14/22 CHIEF COMPLAINT: FRANC HISTORY OF PRESENT ILLNESS: Patient is a 66-year-old male, with a PMHx of Morbid obesity, endocarditis in August of this year, atrial fibrillation, type 2 diabetes, hypertension, liver cirrhosis, anxiety and depression who was transferred from [facility] for acute kidney injury. Patient presented with generalized weakness and disorientation at [facility]. He was noted to have blood [...] headache or dizziness. No fevers Paperwork from [facility] reviewed, chest x-ray with no acute cardiopulmonary process. Sodium 129. Potassium 3.3. Creatinine 2.52. WBC 6.8. Hemoglobin 12.5. Glucose 4.34. Patient will be admitted by the hospitalist team for further evaluation and management. Review of Systems Review of Systems Review of systems: 10 point review of systems obtained, negative unless noted in the HPI or below [facility] Medical History Abdominal mass Anxiety Arthritis Back pain Cirrhosis Colonoscopy planned Deviated nasal septum Diabetes mellitus, type 2 Eczema History of left heart catheterization Pneumonia Surgical History History of cholecystectomy History of hydrocelectomy History of lithotripsy History of nasal surgery Family History Mother Cancer Social History Smoking Status: Never smoker Substance Use Type: None Social History Comments: Lives in [facility] in [facility] Medications and Allergies Allergies metformin Adverse Reaction [...] secondary to poor oral intake. Presented at [facility] with low blood pressures in the 80s. ?Creatinine at [facility] 4.34. Baseline creatinine ~1.4 ?Urine sodium, creatinine, urea pending ? Urine output monitoring ? Start IV fluids ? Hold home lisinopril and renally adjust medications ?Consider renal ultrasound if no improvement ? Nephrology consult ?Monitor BMP COVID-19 positive -unvaccinated. ? Presented with productive cough, hypoxia, loss of taste and generalized weakness ? Afebrile, no leukocytosis ? Chest x-ray from [facility] did not show any acute cardiopulmonary [...] to diabetic diet ?Blood sugar at [facility] was in the 400s ?Basal insulin [...] the plan of care and confirmed the resident's/quality assurance intern/medical student's dictation/written note. Patient is a [...] by Mary Jane Hanna MD> 03/14/22 06[facility] Work Phone: 1(600) 648-921804-19-2022 Progress note Author Lupe Hernandez [facility] April 09, 2022 3:32pm Note Date/Time April 09, 2022 1: 08pm [facility] [address] [place] [address] Hospitalist Progress Note Signed with Muna Patient: Evelin Patterson MR#: [id number] : 1955 Acct:[id number] Age/Sex: 66 / M Adm Date: 2 Loc: 3T Room: 1N2070-9 Type: DIS INOo Attending Dr: Lupe Hernandez MD Copies to: ~ ADDENDUM1 Patient was personally seen by me on the day of encounter, reviewed his history and performed long elements of exam and formulated the plan of care and confirmedthe residents note below. Unfortunately patient has been denied by insurance for detention facility after peer to peer. He will [...] 04/09/221531 Addendum Signed By: <Electronically signed by Lpue Hernandez MD> 04/09/221531 Date of Service: 04/09/2022 Subjective Subjective Narrative: Reassessment on a 66-year-old male with past medical history of obstructive sleep apnea, hypothyroidism, failure to thrive, paroxysmal A. fib, CKD 3, dpv-jtfgebq-jrnmhwkvm diabetes, CHF is being monitored on the floor while a [id number] was had with regards to the patient's discharge to a detention facility. Insurance company has denied this coverage [...] agreed the patient would do well at detention facility. Documented By: Allen Perze DO, RES 2 1302 Signed By: <Electronically signed by DO TAMMIE Perez> 04/09/22 1308 <Electronically signed by Lupe Hernandez MD> 04/09/22 1531 [facility] Work Phone: Discharge summary Author Luke Moran [facility] April 07, 2022 4:16pm Note Date/Time April 05, 2022 10 :05am [facility] [address] [place] [address] Discharge Summary Signed with Muna Patient: Evelin Patterson MR#: [id number] : 1955 Acct:[id number] Age/Sex: 66 / M Adm Date: 2 Loc: Room: [address] [place] [address]: Luke Moran MD Copies to: [...] discharged home in stable condition to a detention facility. Medical therapy was adjusted as noted [...] 10:24: POC Glucose 271 04/03/22 07:34: Free Balta LC, Quant 93.9 H, Free Lambda LC, Quant 61.6 H, Free Balta/Lambda Ratio 1.52 Exam Physical Exam Vital Signs: Temp Pulse Resp BP Pulse Ox O2 Del Method O2 Flow Rate 97.9 F 85 20 134/76 90 L Room Air 2 04/05/22 08:00 04/05/22 08:00 04/05/22 08:00 04/05/22 08:00 04/05/22 08:00 04/05/22 08:00 04/05/22 08:00 FiO2 30 04/04/22 22:34 Discharge Plan Discharge Plan Patient Disposition: Long-Term Facility Activity: Ambulate as Tolerated Diet: Diabetic and Low-Sodium Additional Instructions: Please have company providing CPAP machine fit the patient with a mask that he can tolerate. Use a CPAP of 8 whenever asleep until the sleep study performed. Long-Term Facility to manage care: - Full code [...] Instructions: Sliding Scale ACHS Other Ambulatory Orders: DISEASE AND INSECT CONTROL BOSS polysom procedure (Routine) Timeframe: 3 Weeks Location: Determined by Patient Ordered By: Luke Moran Follow Up: [facility] [Outside] ([facility] or Central Scheduling will call you to arrange date/time for sleep study. ) Documented By: Luke Moran MD 04/07/22 0959 Signed By: <Electronically signed by Luke Moran MD> 04/07/22 1610 [facility] Work Phone: Evaluation + Plan note No data available for this section [facility] [place] Evaluation note* Diagnosis Onset Date Resolution Status [...] Unable to care for self acut e [facility] Work Phone: Evaluation note* Diagnosis Hypotension, unspecified hypotension type- Primary Fall, initial encounter Refusal of treatment Surgical or other procedure not carried out because of patient's decision documented in this encounter [facility] assessment information availableAs[facility] Work Phone: Hospital Discharge instructions No data available for this section [facility] Hospital Discharge instructionsAmbulatory Orders* Initiate Home Health Time Frame: 04/09/22, Location: Determined By Patient Additional Instructions Please wear home oxygen at 2l at all times. HOME HEALTH TO MANAGE: Nursing/PT/OT/Aide/Courtesy Bus Driver to eval and treat Monitor VS per protocol Maintain home oxygen at 2l continuous *Oxygen therapy is new, educate patient on Monitor Respiratory assessment Assist with medication management and provide medication education Assist with glucose control Skin care TID: *Theraworx protect to bilateral groin and abdominal fold redness. *Educate patient on Provide education on high risk fall precautions [facility] Work Phone: Hospital Discharge instructions Additional Instructions If your symptoms return/worsen or you develop any further concerns or symptoms please see your doctor or return to the emergency department immediately.[facility] Work Phone: Progress note No data available for this section [facility] Progrpnf note Author Sarah Osuna [facility] March 16, 2022 12:40pm Note Date/Time March 16, 2022 12: 36pm [facility] [address] [place] [address] Nephrology Progress Note Signed Patient: Evelin Patterson MR#: [id number] : 1955 Acct:[id number] Age/Sex: 66 / M Adm Date: 2 Loc: Room: [address] [place] [address] Type: ADM IN Attending Dr: Xin Phan MD Copies to: ~ Date of Service: 03/16/2022 Subjective Subjective Narrative: This is 66-year-old male patient with a past medical history of morbid obesity, endocarditis, paroxysmal A. fib, diabetes type 2, anxiety and depression and chronic kidney disease stage III. Patient presented to [facility] with feeling weak and disoriented for 2 weeks which has gotten worse. Patient has been having cough with decreased appetite and loss of taste for a week. Lab at [facility] shows acute kidney injury with creatinine up to 4.3 mg/dL along with hyperglycemia with initial blood glucose level more than 400. Patient's blood pressure was in the 80s at [facility]. Patient was given IV fluid [...] 5 Mg Tablet) 5 mg PO DAILY [facility] Stop: 03/15/23 15:59 Last Admin: 03/16/22 08:08 Dose: 5 mg Ascorbic Acid (Ascorbic Acid 500 Mg Tablet) 500 mg PO DAILY [facility] Stop: 03/14/23 08:59 Last Admin: 03/16/22 08:08 Dose: 500 mg Dexamethasone 2 mg/ (Dexamethasone 4 mg) 6 mg PO DAILY [facility] Stop: 03/22/23 08:59 Last Admin: 03/16/22 [...] 5,000 Unit/Ml Vial) 5,000 unit SUBCUT Q12HR [facility] Stop: 03/14/23 08:59 Last Admin: 03/16/22 08:09 Dose: Not Given Insulin Aspart (Insulin Aspart 300 Units/3 Ml Insuln.Pen) 0 units SUBCUT TID..[facility]; Protocol Stop: 03/14/23 07:59 Last Admin: 03/16/22 11:57 Dose: 8 units Insulin Detemir (Insulin Detemir 300 Units/3 Ml Insuln.Pen) 40 units SUBCUT DAILY.WITH.BKFAST [facility] Stop: 03/16/23 07:59 Last Admin: 03/16/22 08:10 [...] signed by Sarah Osuna MD> 03/16/22 1240 [facility] Work Phone: Progress note Author Luke Moran [facility] April 03, 2022 2:05pm Note Date/Time April 03, 2022 2: 05pm [facility] [address] [place] [address] Hospitalist Progress Note Signed Patient: Evelin Patterson MR#: [id number] : 1955 Acct:[id number] Age/Sex: 66 / M Adm Date: 2 Loc: Room: [address] [place] [address] Type: ADM INOo Attending Dr: Luke Moran [...] <Electronically signed by Luke Moran MD> 04/03/22 1402 [facility] Work Phone: Progress note Author Luke Moran [facility] April 04, 2022 4:25pm Note Date/Time April 04, 2022 4: 25pm [facility] [address] [place] [address] Hospitalist Progress Note Signed Patient: Evelin Patterson MR#: [id number] : 1955 Acct:[id number] Age/Sex: 66 / M Adm Date: 2 Loc: Room: [address] [place] [address] Type: ADM INOo Attending Dr: Luke Moran [...] <Electronically signed by Luke Moran MD> 04/04/221624 [facility] Work Phone: Progress note Author Luke Moran [facility] April 06, 2022 2:50pm Note Date/Time April 06, 2022 2: 50pm [facility] [address] [place] [address] Hospitalist Progress Note Signed Patient: Evelin Patterson MR#: [id number] : 1955 Acct:[id number] Age/Sex: 66 / M Adm Date: 2 Loc: 3T Room: [address] [place] [address] Type: ADM INOo Attending Dr: Luke Moran [...] signed by Luke Moran MD> 04/06/22 1450 [facility] Work Phone: Progress note Author Lupe Hernandez [facility] April 08, 2022 1:38pm Note Date/Time April 08, 2022 1: 38pm [facility] [address] [place] [address] Hospitalist Progress Note Signed Patient: Evelin Patterson MR#: [id number] : 1955 Acct:[id number] Age/Sex: 66 / M Adm Date: 2 Loc: Room: [address] [place] [address] Type: ADM INOo Attending Dr: Lupe Hernandez [...] Administration Nausea And Vomiting Rivaroxaban 10 mg 08/24/22 09:00 04/08/22 08:20 Rivaroxaban 10 Mg Tablet [...] Hypothyroidism: Plan Patient currently awaiting placement to detention facility. Remains in normal sinus rhythm. He [...] signed by Lupe Hernandez MD> 04/08/22 1338 [facility] Work Phone: Chief Complaint [...] Primary Care Provider Active Jair Gabriel , Emergency Provider Active Luke Moran MD Admit Provider Active Lupe Hernandez MD Attending Provider Active Team Status: Active Member Role Status Dates Ayden Freeman MD Primary Care Provider Active Team Status: Inactive Member Role Status Dates Ramesh Byrd , Emergency Provider Active Ayden Freeman MD Primary Care Provider Active (unrecognized sect ion and content) No Status Records FoundNo Status Records FoundNo Status Records FoundNo Status Records FoundNo Status Records Found INFORMATION SOURCE (unrecogn ized section and content) DATE CREATED AUTHOR 05/08/2022 [facility] DATE CREATED AUTHOR AUTHOR'S ORGANIZ ATION 12/23/2022 [facility] DATE CREATED AUTHOR AUTHOR'S ORGANIZ ATION 04/12/2023 [facility] DATE CREATED AUTHOR AUTHOR'S ORGANIZ ATION 09/17/2023 [facility] DATE CREATED AUTHOR AUTHOR'S ORGANIZ ATION 06/15/2024 [facility] Reason for Visit (unrecogniz ed section [...] BE BASED ON THE PRIMARY CLINICAL RECORDS. [facility] [employer] [facility]. provides no warranty or guarantee of the accuracy or completeness of information in this document.
[2024-10-09 09:18] LABS: Basophils Absolute Auto 0.1 10^3/uL (0.0-0.1); Basophils Percent Auto 1.7 % (0.2-2.0); Eosinophils Absolute Auto 0.6 10^3/uL (0.0-0.7); Eosinophils Percent Auto 7.9 % (0.9-7.0); Hematocrit 37.9 % (42.0-54.0); Hemoglobin 12.3 g/dL (14.0-18.0); Immature Granulocytes Abs Auto 0.02 10^3/uL (0.00-0.03); Immature Granulocytes Pct Auto 0.3 % (0.0-0.5); Lymphocytes Absolute Auto 1.8 10^3/uL (1.2-3.8); Lymphocytes Percent Auto 23.4 % (20.5-60.0); Mean Corpuscular HGB Conc 32.5 g/dL (29.9-35.2); Mean Corpuscular Hemoglobin 29.3 pg (25.9-34.0); Mean Corpuscular Volume 90.2 fL (80.0-94.0); Monocytes Absolute Auto 0.7 10^3/uL (0.3-0.8); Monocytes Percent Auto 9.4 % (1.7-12.0); Neutrophils Absolute Auto 4.5 10^3/uL (1.4-6.5); Neutrophils Percent Auto 57.3 % (43.0-75.0); Platelet Count 239 10^3/uL (150-450); Red Cell Distribution Width 15.2 % (11.0-15.0); White Blood Count 7.9 10^3/uL (4.0-11.0)
[2024-10-09 09:29] LABS: Estimated Average Glucose 151 mg/dL; Glycohemoglobin A1C 6.9 % (4.5-6.2)
[2024-10-09 09:33] LABS: Bilirubin Urine NEGATIVE (NEGATIVE); Blood Urine MODERATE (NEGATIVE); Clarity Urine CLEAR (CLEAR); Color Urine LT. YELLOW (YELLOW); Glucose Urine UA NEGATIVE (NEGATIVE); Ketones Urine NEGATIVE (NEGATIVE); Leukocyte Esterase Urine NEGATIVE (NEGATIVE); Nitrite Urine NEGATIVE (NEGATIVE); Protein Urine 100 mg/dL (NEG/TRACE); Specific Gravity Urine 1.025 (1.005-1.025); Urobilinogen Urine 0.2 EU/dL (0.2-1.0)
[2024-10-09 09:44] LABS: Bacteria Urine TRACE #/HPF (NONE SEEN); Mucus Urine NONE SEEN (NONE SEEN); Squamous Epithelial Cell Urine RARE #/LPF (NONE/RARE); WBC Urine 0-2 #/HPF (NONE SEEN)
[2024-10-09 09:45] LABS: Cast Seen? SEEN #/LPF (NONE SEEN); Crystals Seen? None Seen #/HPF (None Seen); Hyaline Casts Urine RARE; Urine Culture Indicated ALREADY ORDERED
[2024-10-09 10:03] LABS: Prostate Specific Antigen Scrn 1.38 ng/mL (<=4.00)
[2024-10-09 10:05] LABS: Alanine Aminotransferase 19 U/L (16-63); Albumin Globulin Ratio 0.6; Alkaline Phosphatase 174 U/L (46-116); Anion Gap 16.3; Aspartate Amino Transferase 35 U/L (15-37); BUN Creatinine Ratio 14.6; Bilirubin Total 0.9 mg/dL (0.2-1.0); Calcium 9.1 mg/dL (8.5-10.1); Carbon Dioxide 21.7 mmol/L (21.0-32.0); Chloride 104 mmol/L (98-107); Chol HDL Ratio 3.3; Cholesterol 150 mg/dL (<=200); Estimated GFR (African America 56 (>=60 mL/min/1.73m^2); Estimated GFR (Non-African Ame 46 (>=60 mL/min/1.73m^2); Free T3 2.29 pg/mL (2.18-3.98); Globulin 5.2 g/dL; Glucose 161 mg/dL (74-106); HDL Cholesterol 45 mg/dL (40-60); LDL Cholesterol Calculated 78.2 mg/dL; Sodium 138 mmol/L (136-145); Thyroid Stimulating Hormone 0.136 uIU/mL (0.358-3.740); Total Protein 8.2 g/dL (6.4-8.2); Triglycerides 134 mg/dL (<=150); VLDL CHOLESTEROL 26.8 mg/dL
[2024-10-10 08:10] LABS: CA 19-9 17 U/mL (0-35); CEA 3.5 ng/mL (0.0-4.7)
[2024-10-10 12:07] LABS: Insulin 32.8 uIU/mL (2.6-24.9)
== END 2024-10-09 08:28 | disposition home or self-care (01) ==
LOC: LAB 08:30
PROVIDERS: PCP Nurse Practitioner Family; Visit Provider Nurse Practitioner Family
DX: R53.83 Other fatigue (principal)
CPT/HCPCS: 36415; 80053; 80061; 81001; 82378; 83036; 83525; 84436; 84443; 84481; 84550; 85025; 86301; 87086; G0103

== ENCOUNTER 2024-10-09 09:07 | Emergency (ER) | payer MEDICARE, MEDICAID, SELFPAY ==
[2024-10-09 09:15] VITALS: BP 161/99; PULSE 86; TEMP 36.6; O2SAT 97; BMI 45.9
--- OUTSIDE RECORDS SUMMARY | 2024-10-09 09:18 | XMS_ITS | CCD ---
Author Organization [facility] Inform ion Partnership [facility] Care Team Providers Care Painter [place] Name Role Phone JEFF CARLOS Primary Care Physician MD Ayden Freeman Primary Care Provider Al MD Mary Jane Campbell Admit Provider MD Syed Osunaiz Other Provider MD Xin Phan Attending Provider DO Jair Gabriel Emergency Provider MD Luke Moran Admit Provider MD Lupe Hernandez Attending Provider [phone] DO Ramesh Byrd Emergency Provider PROVIDER, UNKNOWN [...] [facility] Unavailable HAY ., DR BTUT Consulting Unavailable AMBROCIO, ABBIE Consulting Unavailable MATTHEW, [...] sources) metFORMIN; Translations: [metformin] Drug Allergy [address] [facility] (6 sources) Prochlorperazine; Translations: [prochlorperazine] Drug Allergy [address] 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 It is important that you return our call upon receiving this letter. Also, at the time of your call, please provide us with your current information. Thank you for your prompt attention to this matter. Sincerely, Dr. Javid Haynes MD General Surgery [facility] Provider Letteron 04-09-2024 Provider Letter Provider Letter April 09, 2024 [address] [address] : 1955 Dear Evelin , We have been trying to reach you with no success. It is important that you return our call regarding scheduling a consultation at our office upon receiving this letter. Also, at the time of your call, please provide us with your current information. Thank you for your prompt attention to this matter. Sincerely, [facility] [phone] [facility] Provider Letter Provider Letter April 09, 2024 [address] [address] : 1955 Dear Evelin , We have been trying to reach you with no success. It is important that you return our call regarding your _ upon receiving this letter. Also, at the time of your call, please provide us with your current information. Thank you for your prompt attention to this matter. Sincerely, [facility] [phone] [facility] Provider Letteron 03-15-2024 Provider Letter Provider Letter March 15, 2024 [address] [address] : 1955 Dear Evelin , We have been trying to reach you with no success. It is important that you return our call regarding a referral upon receiving this letter. Also, at the time of your call, please provide us with your current information. Thank you for your prompt attention to this matter. Sincerely, Dr. Javid Haynes MD General Surgery [facility] CBC AUTO DIFFon 12-19-2022 BASO # 0.1 103/ul Normal 0.0-0.1 [facility] Comment on above: Performed By: #### T SH, BMP #### [facility] [address] [place] [address] Dr. Ladan Diehl Basophils/100 WBC (Bld) 1.2 % Normal 0.2-2.0 [facility] [place] Comment on above: Performed By: #### T SH, BMP #### [facility] [address] [place] [address] Dr. Ladan Diehl EO # 0.4 103/ul Normal 0.0-0.7 [facility] Comment on above: Performed By: #### T SH, BMP #### [facility] [address] [place] [address] Dr. Ladan Diehl Eosinophils/100 WBC (Bld) 4.9 % Normal 0.9-7.0 [facility] Comment on above: Performed By: #### T SH, BMP #### [facility] [address] [place] [address] Dr. Ladan Diehl Erythrocyte distribution width (RBC) [Ratio] 14.8 % Normal 11.0-15.0 [facility] Comment on above: Performed By: #### T SH, BMP #### [facility] [address] [place] [address] Dr. Ladan Diehl Hematocrit (Bld) [Volume fraction] 36.7 % Critically low 42.0-54.0 [facility] Comment on above: Performed By: #### T SH, BMP #### [facility] [address] [place] [address] Dr. Ladan Diehl Hemoglobin (Bld) [Mass/Vol] 12.0 g/dL Critically low 14.0-18.0 [facility] Comment on above: Performed By: #### T SH, BMP #### [facility] [address] [place] [address] Dr. Ladan Diehl IG # 0.01 10e3/ul Normal 0.00-0.03 [facility] Comment on above: Performed By: #### T SH, BMP #### [facility] [address] [place] [address] Dr. Ladan Diehl IG % 0.1 % Normal 0.0-0.5 [facility] Comment on above: Performed By: #### T SH, BMP #### [facility] [address] [place] [address] Dr. Ladan Diehl LYMPH # 2.0 103/ul Normal 1.2-3.8 [facility] Comment on above: Performed By: #### T SH, BMP #### [facility] [address] [place] [address] Dr. Ladan Diehl Lymphocytes/100 WBC (Bld) 27.1 % Normal 20.5-60.0 [facility] Comment on above: Performed By: #### T SH, BMP #### [facility] [address] [place] [address] Dr. Ladan Diehl MANUAL DIFF REQ NO Normal [facility] Comment on above: Performed By: #### T SH, BMP #### [facility] [address] [place] [address] Dr. Ladan Diehl MCH (RBC) [Entitic mass] 29.6 pg Normal 25.9-34.0 [facility] Comment on above: Performed By: #### T SH, BMP #### [facility] [address] [place] [address] Dr. Ladan Diehl MCHC (RBC) [Mass/Vol] 32.7 g/dL Normal 29.9-35.2 [facility] Comment on above: Performed By: #### T SH, BMP #### [facility] [address] [place] [address] Dr. Ladan Diehl MCV (RBC) [Entitic vol] 90.6 fL Normal 80.0-94.0 [facility] [place] Comment on above: Performed By: #### T SH, BMP #### [facility] [address] [place] [address] Dr. Ladan Diehl MONO # 0.8 103/ul Normal 0.3-0.8 [facility] Comment on above: Performed By: #### T SH, BMP #### [facility] [address] [place] [address] Dr. Ladan Diehl Monocytes/100 WBC (Bld) 10.4 % Normal 1.7-12.0 [facility] [place] Comment on above: Performed By: #### T SH, BMP #### [facility] [address] [place] [address] Dr. Ladan Diehl NEUT # 4.2 103/ul Normal 1.4-6.5 [facility] Comment on above: Performed By: #### T SH, BMP #### [facility] [address] [place] [address] Dr. Ladan Diehl Neutrophils/100 WBC (Bld) 56.3 % Normal 43.0-75.0 [facility] Comment on above: Performed By: #### T SH, BMP #### [facility] [address] [place] [address] Dr. Ladan Diehl Platelet mean volume (Bld) [Entitic vol] 9.9 fL Normal 9.5-13.5 [facility] Comment on above: Performed By: #### T SH, BMP #### [facility] [address] [place] [address] Dr. Ladan Diehl PLT 227 103/ul Normal 150-450 [facility] Comment on above: Performed By: #### T SH, BMP #### [facility] [address] [place] [address] Dr. Ladan Diehl RBC 4.05 106/ul Critically low 4.70-6.10 [facility] Comment on above: Performed By: #### T SH, BMP #### [facility] [address] [place] [address] Dr. Ladan Diehl WBC 7.4 103/ul Normal 4.0-11.0 [facility] Comment on above: Performed By: #### T SH, BMP #### [facility] [address] [place] [address] Dr. Ladan Diehl FREE T3on 12-19-2022 FREE T3 2.07 pg/mlL Critically low 2.18-3.98 [facility] Comment on above: Performed By: #### T SH, BMP #### [facility] [address] [address] [address] Ladan Diehl FREE T4on 12-19-2022 Free T4 [Mass/Vol] 1.14 ng/dL Normal 0.76-1.46 [facility] Comment on above: Performed By: #### T SH, BMP #### [facility] [address] [address] [address] Ladan Diehl GLYCOHEMOGLOBIN A1Con 2022 ADA RECOMMENDATION SEE BELOW Normal [facility] Comment on above: Result Comment: ADA RECOMMENDED LIMIT 4.0 - 6.0 ADA THERAPEUTIC TARGET < 7.0 ACTION SUGGESTED > 7.0 Performed By: #### T SH, BMP #### [facility] [address] [place] [address] Dr. Ladan Diehl Glucose [Mass/Vol] 134 mg/dL Normal [facility] Comment on above: Performed By: #### T SH, BMP #### [facility] [address] [place] [address] Dr. Ladan Diehl HbA1c (Bld) [Mass fraction] 6.3 % Critically high 4.5-6.2 [facility] Comment on above: Performed By: #### T SH, BMP #### [facility] [address] [place] [address] Dr. Ladan Diehl LIPID PROFILEon 12-19-2022 CHOL-HDL RATIO NORM SEE BELOW Normal [facility] Comment on above: Result Comment: 3.3 - 4.4 LOW RISK 4.4 - 7.1 AVERAGE RISK 7.1 - 11.0 MODERATE RISK >11.0 HIGH RISK Performed By: #### T SH, BMP #### [facility] [address] [address] [address] Ladan Diehl Cholesterol [Mass/Vol] 118 mg/dL Normal <=200 [facility] Comment on above: Performed By: #### T SH, BMP #### [facility] [address] [address] [address] Ladan Diehl Cholesterol in HDL [Mass/Vol] 43 mg/dL Normal 40-60 [facility] Comment on above: Performed By: #### T SH, BMP #### [facility] [address] [address] [address] Ladan Diehl Cholesterol in LDL [Mass/Vol] 48.8 mg/dL Normal [facility] Comment on above: Performed By: #### T SH, BMP #### [facility] [address] [place] [address] Dr. Ladan Diehl Cholesterol.total/Choles terol in HDL [Mass ratio] 2.7 {ratio} Normal [facility] Comment on above: Performed By: #### T SH, BMP #### [facility] [address] [place] [address] Dr. Ladan Diehl HDL NORMAL > or = 60 mg/dl - LOW CARDIOVASCULAR RISK <40 mg/dl - HIGH CARDIOVASCULAR RISK Normal [facility] Comment on above: Performed By: #### T SH, BMP #### [facility] [address] [place] [address] Dr. Ladan Diehl LDL CALC NORMAL SEE BELOW Normal [facility] Comment on above: Result Comment: <100 mg/dl OPTIMAL 100 - 129 mg/dl NEAR OR ABOVE OPTIMAL 130 - 159 mg/dl BORDERLINE HIGH 160 - 189 mg/dl HIGH >190 mg/dl VERY HIGH Performed By: #### T SH, BMP #### [facility] [address] [place] [address] Dr. Ladan Diehl Triglyceride [Mass/Vol] 131 mg/dL Normal <=150 [facility] [place] Comment on above: Performed By: #### T SH, BMP #### [facility] [address] [place] [address] Dr. Ladan Diehl VLDL CALC 26.2 mg/dL Normal [facility] Comment on above: Performed By: #### T SH, BMP #### [facility] [address] [place] [address] Dr. Ladan Diehl LIVER PROFILEon 12-19-2022 Albumin [Mass/Vol] 2.7 g/dL Critically low 3.4-5.0 [facility] Comment on above: Performed By: #### T SH, BMP #### [facility] [address] [address] [address] Ladan Diehl Albumin/Globulin [Mass ratio] 0.4 {ratio} Normal [facility] Comment on above: Performed By: #### T SH, BMP #### [facility] [address] [address] [address] Ladan Diehl ALP [Catalytic activity/Vol] 154 U/L Critically high 46-116 [facility] Comment on above: Performed By: #### T SH, BMP #### [facility] [address] [address] [address] Ladan Diehl ALT [Catalytic activity/Vol] 25 U/L Normal 16-63 [facility] Comment on above: Performed By: #### T SH, BMP #### [facility] [address] [place] [address] Dr. Ladan Diehl AST [Catalytic activity/Vol] 38 U/L Critically high 15-37 [facility] Comment on above: Performed By: #### T STEFF, BMP #### [facility] [address] [place] [address] Dr. Ladan Diehl BILI, CONJUGATED 0.2 mg/dL Normal 0.0-0.2 [facility] Comment on above: Performed By: #### T SH, BMP #### [facility] [address] [place] [address] Dr. Ladan Diehl Bilirubin [Mass/Vol] 0.8 mg/dL Normal 0.2-1.0 [facility] Comment on above: Performed By: #### T SH, BMP #### [facility] [address] [place] [address] Dr. Ladan Diehl Globulin (S) [Mass/Vol] 6.2 g/dL Normal [facility] [place] Comment on above: Performed By: #### T SH, BMP #### [facility] [address] [place] [address] Dr. Ladan Diehl Protein [Mass/Vol] 8.9 g/dL Critically high 6.4-8.2 [facility] [place] Comment on above: Performed By: #### T SH, BMP #### [facility] [address] [place] [address] Dr. Ladan Diehl MICROALBUMIN, RAND URon 12-09 mALB 25.4 mg/dL Normal <=30.0 [facility] Comment on above: Performed By: #### T SH, BMP #### [facility] [address] [place] [address] Dr. Ladan Diehl PROF CHEM 8 (BAS METB)on Anion gap [Moles/Vol] 10.7 mmol/L Normal [facility] Comment on above: Performed By: #### T SH, BMP #### [facility] [address] [address] [address] Ladan Diehl Calcium [Mass/Vol] 9.0 mg/dL Normal 8.5-10.1 [facility] Comment on above: Performed By: #### T SH, BMP #### [facility] [address] [place] [address] Dr. Ladan Diehl Chloride [Moles/Vol] 103 mmol/L Normal 98-107 [facility] Comment on above: Performed By: #### T SH, BMP #### [facility] [address] [place] [address] Dr. Ladan Diehl CO2 [Moles/Vol] 27.5 mmol/L Normal 21.0-32.0 [facility] Comment on above: Performed By: #### T SH, BMP #### [facility] [address] [place] [address] Dr. Ladan Diehl Creatinine [Mass/Vol] 1.29 mg/dL Normal 0.70-1.30 [facility] Comment on above: Performed By: #### T SH, BMP #### [facility] [address] [place] [address] Dr. Ladan Diehl EGFR-AF AFGHAN >60 Normal >=60 [facility] Comment on above: Performed By: #### T SH, BMP #### [facility] [address] [place] [address] Dr. Ladan Diehl EGFR-NON AF AFGHAN 56 mL/min/1.73m2 Critically low >=60 [facility] Comment on above: Performed By: #### T SH, BMP #### [facility] [address] [address] [address] Ladan Diehl Glucose [Mass/Vol] 108 mg/dL Critically high 74-106 [facility] [place] Comment on above: Performed By: #### T SH, BMP #### [facility] [address] [place] [address] Dr. Ladan Diehl Potassium [Moles/Vol] 4.2 mmol/L Normal 3.5-5.1 [facility] Comment on above: Performed By: #### T SH, BMP #### [facility] [address] [place] [address] Dr. Ladan Diehl Sodium [Moles/Vol] 137 mmol/L Normal 136-145 [facility] Comment on above: Performed By: #### T SH, BMP #### [facility] [address] [place] [address] Dr. Ladan Diehl Urea nitrogen [Mass/Vol] 12.0 mg/dL Normal 7.0-18.0 [facility] Comment on above: Performed By: #### T SH, BMP #### [facility] [address] [place] [address] Dr. Ladan Diehl Urea nitrogen/Creatinine [Mass ratio] 9.3 mg/mg Normal [facility] Comment on above: Performed By: #### T SH, BMP #### [facility] [address] [place] [address] Dr. Ladan Diehl TSHon 12-19-2022 TSH 8.668 uIU/mL Critically high 0.358-3.740 [facility] Comment on above: Performed By: #### T SH, BMP #### [facility] [address] [place] [address] Dr. Ladan Diehl GLYCOHEMOGLOBIN A1Con 2021 ADA RECOMMENDATION SEE BELOW Normal [facility] Comment on above: Result Comment: ADA RECOMMENDED LIMIT 4.0 - 6.0 ADA THERAPEUTIC TARGET < 7.0 ACTION SUGGESTED > 7.0 Performed By: #### A 1C #### [facility] [address] [place], [place] [address] Dr. Ladan Diehl Glucose [Mass/Vol] 140 mg/dL Normal [facility] Comment on above: Performed By: #### A 1C #### [facility] [address] [place], [place] [address] Dr. Ladan Diehl HbA1c (Bld) [Mass fraction] 6.5 % Critically high 4.5-6.2 [facility] Comment on above: Performed By: #### A 1C #### [facility] [id number] Ladan Diehl [address] CSPINE WO CONon [...] CAROL YIP Date: 2022-05-17 13:25 Normal [facility] CT HEAD WO CONon 05-17-2022 CT [...] by: CAROL YIP Date: 2022-05-17 13:07 Normal [facility] XR CHEST 1 Von 05-17-2022 XR [...] by: ABBIE AMBROCIO Date: 2022-05-17 12:53 Normal [facility] Progress Noteson 05-03-2022 Lithographic Etcher Authentication Interface Message Text EMERGENCY TRIAGE, TREAT AND TRANSPORT (ET3) DOCUMENTATION OF TELEHEALTH VISIT Date / Time: 05/01/2022599 Name: Evelin Patterson : 1955 SSN: [id number] EMS Agency: [facility] [x] Verbal consent obtained [] [...] Completed by: Peter Molina, DO Normal [facility] [employer] [facility] Activated partial thrombopla stin time (aPTT) in platelet poor plasma by coagulation aOrdered By: Ramesh Byrd on 04-12-2022 aPTT Coag (PPP) [Time] 24.8 s 25.1-36.5 [facility] Automated erythrocytes count in urine sediment (number/area)Ordered By: Ramesh Byrd on 04-12-2022 RBC Auto (Urine sed) [#/Area] 20-49 [HPF] 0-4 [facility] Automated leukocytes count i n urine sediment (number/area)Ordered By: Ramesh Byrd on 04-12-2022 WBC Auto (Urine sed) [#/Area] 1-2 [HPF] 0-4 [facility] B-Type Natriuretic Peptideon 04-12-2022 Natriuretic peptide B (Bld) [Mass/Vol] 196.0 pg/mL High 5-100 [facility] Comment on above: Result Comment: PERF ORMED BY: [facility] [address] [place] [id number] PATHOLOGIST MEDICAL SPECIALIST CHARLENE HERNANDEZ M.D. Performed By: #### C MP, TSH3, PT, HS TROP, PTT, BNP, MG, CBC #### [facility] [address] Basophils Auto (Bld) [#/Vol] Ordered By: Ramesh Byrd on 04-12-2022 Basophils (Bld) [#/Vol] 0.0 10*3/uL 0.0-0.2 [facility] Basophils/100 WBC Auto (Bld) Ordered By: Ramesh Byrd on 04-12-2022 Basophils/100 WBC (Bld) 0.6 % . [facility] Bilirubin Test strip Ql (U)O rdered By: Ramesh Byrd on 04-12-2022 Bilirubin Ql (U) Negative Negative [facility] Blood hemoglobin measurement (mass/volume)Ordered By: Ramesh Byrd on 04-12-2022 Hemoglobin (Bld) [Mass/Vol] 12.2 g/dL 13.0-17.0 [facility] Blood leukocytes automated c ount (number/volume)Ordered By: Ramesh Byrd on 04-12-2022 WBC (Bld) [#/Vol] 6.4 10*3/uL 4.5-11.0 [facility] Body fluid albumin measureme nt (mass/volume)Ordered By: Ramesh Byrd on 04-12-2022 Albumin (Body fld) [Mass/Vol] 2.3 g/dL 3.2-5.5 [facility] Color Auto (U)Ordered By: Andi Byrd on 04-12-2022 Color (U) Yellow Yellow [facility] Complete Blood Count Auto Di ffon 04-12-2022 Basophils (Bld) [#/Vol] 0.0 10*3/uL Normal 0.0-0.2 [facility] Comment on above: Result Comment: PERF ORMED BY: [facility] [address] [place] [address] PATHOLOGIST MEDICAL SPECIALIST CHARLENE HERNANDEZ M.D. Performed By: #### C MP, TSH3, PT, HS TROP, PTT, BNP, MG, CBC #### [address] Basophils/100 WBC (Bld) 0.6 % Normal . [facility] Comment on above: Performed By: #### C MP, TSH3, PT, HS TROP, PTT, BNP, MG, CBC #### [address] Eosinophils (Bld) [#/Vol] 0.2 10*3/uL Normal 0.0-0.45 [facility] Comment on above: Performed By: #### C MP, TSH3, PT, HS TROP, PTT, BNP, MG, CBC #### [address] Eosinophils/100 WBC (Bld) 2.7 % Normal . [facility] Comment on above: Performed By: #### C MP, TSH3, PT, HS TROP, PTT, BNP, MG, CBC #### [address] Erythrocyte distribution width (RBC) [Ratio] 16.7 % High 12.0-14.8 [facility] Comment on above: Performed By: #### C MP, TSH3, PT, HS TROP, PTT, BNP, MG, CBC #### [address] Hematocrit (Bld) [Volume fraction] 36.7 % Low 38.8-50.0 [facility] Comment on above: Performed By: #### C MP, TSH3, PT, HS TROP, PTT, BNP, MG, CBC #### [address] Hemoglobin (Bld) [Mass/Vol] 12.2 g/dL Low 13.0-17.0 [facility] Comment on above: Performed By: #### C MP, TSH3, PT, HS TROP, PTT, BNP, MG, CBC #### [address] Lymphocytes (Bld) [#/Vol] 1.0 10*3/uL Normal 1.00-4.8 [facility] Comment on above: Performed By: #### C MP, TSH3, PT, HS TROP, PTT, BNP, MG, CBC #### [address] Lymphocytes/100 WBC (Bld) 16.1 % Normal . [facility] Comment on above: Performed By: #### C MP, TSH3, PT, HS TROP, PTT, BNP, MG, CBC #### [address] MCH (RBC) [Entitic mass] 31.0 pg Normal 27.5-35.2 [facility] Comment on above: Performed By: #### C MP, TSH3, PT, HS TROP, PTT, BNP, MG, CBC #### [address] MCV (RBC) [Entitic vol] 93.5 fL Normal 83.5-101 [facility] Comment on above: Performed By: #### C MP, TSH3, PT, HS TROP, PTT, BNP, MG, CBC #### [address] Mean Corpuscular HGB Conc 33.1 g/dL Normal 32.5-35.6 [facility] Comment on above: Performed By: #### C MP, TSH3, PT, HS TROP, PTT, BNP, MG, CBC #### [address] Monocytes (Bld) [#/Vol] 0.8 10*3/uL Normal 0.0-0.8 [facility] Comment on above: Performed By: #### C MP, TSH3, PT, HS TROP, PTT, BNP, MG, CBC #### [address] Monocytes/100 WBC (Bld) 12.0 % Normal . [facility] Comment on above: Performed By: #### C MP, TSH3, PT, HS TROP, PTT, BNP, MG, CBC #### [place] [address] [place] Neutrophils (Bld) [#/Vol] 4.4 10*3/uL Normal 1.8-7.7 [facility] Comment on above: Performed By: #### C MP, TSH3, PT, HS TROP, PTT, BNP, MG, CBC #### [facility] [address] Neutrophils/100 WBC (Bld) 68.6 % Normal . [facility] Comment on above: Performed By: #### C MP, TSH3, PT, HS TROP, PTT, BNP, MG, CBC #### [facility] [address] Nucleated RBC/100 WBC (Bld) [Ratio] 0.1 % Normal 0-0.5 [facility] Comment on above: Performed By: #### C MP, TSH3, PT, HS TROP, PTT, BNP, MG, CBC #### [facility] [address] Platelet mean volume (Bld) [Entitic vol] 8.0 fL Normal 6.6-10.1 [facility] [facility] Comment on above: Performed By: #### C MP, TSH3, PT, HS TROP, PTT, BNP, MG, CBC #### [facility] [address] Platelets (Bld) [#/Vol] 191 10*3/uL Normal 150-450 [facility] Comment on above: Performed By: #### C MP, TSH3, PT, HS TROP, PTT, BNP, MG, CBC #### [facility] [address] [place] [address] [place] RBC (Bld) [#/Vol] 3.93 10*6/uL Normal 3.90-5.60 [facility] Comment on above: Performed By: #### C MP, TSH3, PT, HS TROP, PTT, BNP, MG, CBC #### [facility] [address] WBC (Bld) [#/Vol] 6.4 10*3/uL Normal 4.5-11.0 [facility] Comment on above: Performed By: #### C MP, TSH3, PT, HS TROP, PTT, BNP, MG, CBC #### [facility] [address] Comprehensive Metabolic Pane xavier 04-12-2022 Albumin [Mass/Vol] 2.3 g/dL Low 3.2-5.5 [facility] Comment on above: Performed By: #### C MP, TSH3, PT, HS TROP, PTT, BNP, MG, CBC #### [facility] [address] Albumin/Globulin [Mass ratio] 0.5 {ratio} Normal [facility] Comment on above: Performed By: #### C MP, TSH3, PT, HS TROP, PTT, BNP, MG, CBC #### [address] ALP [Catalytic activity/Vol] 97 U/L High 32-92 [facility] Comment on above: Performed By: #### C MP, TSH3, PT, HS TROP, PTT, BNP, MG, CBC #### [address] ALT [Catalytic activity/Vol] 34 U/L Normal 10-60 [facility] Comment on above: Performed By: #### C MP, TSH3, PT, HS TROP, PTT, BNP, MG, CBC #### [address] Anion gap [Moles/Vol] 17.1 mmol/L High 6.0-15.0 [facility] Comment on above: Performed By: #### C MP, TSH3, PT, HS TROP, PTT, BNP, MG, CBC #### [address] AST [Catalytic activity/Vol] 136 U/L High 10-42 [facility] Comment on above: Performed By: #### C MP, TSH3, PT, HS TROP, PTT, BNP, MG, CBC #### [place] [address] [place] Bilirubin [Mass/Vol] 1.3 mg/dL High 0.3-1.2 [facility] Comment on above: Result Comment: Samp les from patients who have taken Naproxen have shown spurious elevation in Total Bilirubin levels. A metabolite of Naproxen, O-desmethylnaproxen, has been shown to interfere with the Jendrassik-Grof method for measuring Total Bilirubin. Performed By: #### C MP, TSH3, PT, HS TROP, PTT, BNP, MG, CBC #### [facility] [address] Calcium [Mass/Vol] 8.6 mg/dL Normal 8.2-10.2 [facility] Comment on above: Performed By: #### C MP, TSH3, PT, HS TROP, PTT, BNP, MG, CBC #### [address] Chloride [Moles/Vol] 97 mmol/L Normal 95-114 [facility] Comment on above: Performed By: #### C MP, TSH3, PT, HS TROP, PTT, BNP, MG, CBC #### [facility] [address] CO2 [Moles/Vol] 25.4 mmol/L Normal 22.0-30.0 [facility] Comment on above: Performed By: #### C MP, TSH3, PT, HS TROP, PTT, BNP, MG, CBC #### [facility] [address] Creatinine [Mass/Vol] 1.14 mg/dL Normal 0.64-1.27 [facility] Comment on above: Performed By: #### C MP, TSH3, PT, HS TROP, PTT, BNP, MG, CBC #### [facility] [address] Creatinine Clr Calc Pharmacy 97.67 [facility] Comment on above: Performed By: #### C MP, TSH3, PT, HS TROP, PTT, BNP, MG, CBC #### [address] Estimated GFR ( Lilibeth > 60 Normal [facility] Comment on above: Result Comment: GFR estimated reference range: According to KDOQI guidelines, <60 ml/min/1.73m2 is sufficient to diagnose a patient with chronic kidney disease. Performed By: #### C MP, TSH3, PT, HS TROP, PTT, BNP, MG, CBC #### [facility] [address] [place] [address] [place] Estimated GFR (Non- Am > 60 Normal [facility] Comment on above: Performed By: #### C MP, TSH3, PT, HS TROP, PTT, BNP, MG, CBC #### [facility] [address] [place] [address] [place] Globulin (S) [Mass/Vol] 4.7 g/dL Normal [facility] Comment on above: Performed By: #### C MP, TSH3, PT, HS TROP, PTT, BNP, MG, CBC #### [facility] [address] Glucose [Mass/Vol] 164 mg/dL High 70-100 [facility] Comment on above: Result Comment: [place] Glucose Reference Range is dependent on time and content of last meal. Glucose of more than 200 mg/dL in a nonstressed, ambulatory subject supports the diagnosis of Diabetes Mellitus. ADA recommended reference range Performed By: #### C MP, TSH3, PT, HS TROP, PTT, BNP, MG, CBC #### [place] [address] [place] Potassium [Moles/Vol] 3.5 mmol/L Normal 3.5-5.1 [facility] Comment on above: Performed By: #### C MP, TSH3, PT, HS TROP, PTT, BNP, MG, CBC #### [facility] [address] [place] [address] [place] Protein [Mass/Vol] 7.0 g/dL Normal 6.1-7.9 [facility] Comment on above: Performed By: #### C MP, TSH3, PT, HS TROP, PTT, BNP, MG, CBC #### [place] [address] [place] Sodium [Moles/Vol] 136 mmol/L Normal 136-146 [facility] Comment on above: Performed By: #### C MP, TSH3, PT, HS TROP, PTT, BNP, MG, CBC #### [facility] [address] Urea nitrogen [Mass/Vol] 13 mg/dL Normal 9-23 [facility] Comment on above: Performed By: #### C MP, TSH3, PT, HS TROP, PTT, BNP, MG, CBC #### [facility] [address] [place] [address] [place] Creatinine and Glomerular fi ltration rate.predicted panel (S/P/Bld)Ordered By: Ramesh Byrd on 04-12-2022 Creatinine [Mass/Vol] 1.14 mg/dL 0.64-1.27 [facility] Dipstick and Microscopicon 0 04-12-2022 Appearance (U) Clear Normal Clear [facility] Comment on above: Order Comment: Name Collection Type:: Clean-Voided Midstream Performed By: #### A DDONUAPLUS #### [place] [address] [place] Bacteria,Urine None Seen Normal None Seen [facility] Comment on above: Order Comment: Name Collection Type:: Clean-Voided Midstream Performed By: #### A DDONUAPLUS #### [place] [address] [place] Bilirubin,Urine Negative Normal Negative [facility] Comment on above: Order Comment: Name Collection Type:: Clean-Voided Midstream Performed By: #### A DDONUAPLUS #### [place] [address] [place] Color (U) Yellow Normal Yellow [facility] Comment on above: Order Comment: Name Collection Type:: Clean-Voided Midstream Performed By: #### A DDONUAPLUS #### [place] [address] [place] Glucose Ql (U) Normal Normal Normal [facility] Comment on above: Order Comment: Name Collection Type:: Clean-Voided Midstream Performed By: #### A DDONUAPLUS #### [place] [address] [place] Hyaline Casts,Urine 0-8 Normal 0-8 [facility] Comment on above: Order Comment: Name Collection Type:: Clean-Voided Midstream Result Comment: PERF ORMED BY: [place] [address] PATHOLOGIST MEDICAL SPECIALIST CHARLENE HERNANDEZ M.D. Performed By: #### A DDONUAPLUS #### [address] Ketones Ql (U) Trace High Negative [facility] Comment on above: Order Comment: Name Collection Type:: Clean-Voided Midstream Performed By: #### A DDONUAPLUS #### [address] Leukocyte esterase Test strip Ql (U) Negative Normal Negative [facility] Comment on above: Order Comment: Name Collection Type:: Clean-Voided Midstream Performed By: #### A DDONUAPLUS #### [place] [address] [place] Nitrite,Urine Negative Normal Negative [facility] Comment on above: Order Comment: Name Collection Type:: Clean-Voided Midstream Performed By: #### A DDONUAPLUS #### [place] [address] [place] Occult Blood,Urine 2+ High Negative [facility] Comment on above: Order Comment: Name Collection Type:: Clean-Voided Midstream Result Comment: PERF ORMED BY: [place] [address] PATHOLOGIST MEDICAL SPECIALIST CHARLENE HERNANDEZ M.D. Performed By: #### A DDONUAPLUS #### [place] [address] [place] pH (U) 6.5 [pH] Normal 5.0-9.0 [facility] Comment on above: Order Comment: Name Collection Type:: Clean-Voided Midstream Performed By: #### A DDONUAPLUS #### [address] Protein (U) [Mass/Vol] 100 mg/dL High Negative [facility] Comment on above: Order Comment: Name Collection Type:: Clean-Voided Midstream Performed By: #### A DDONUAPLUS #### [address] RBC,Urine 20-49 High 0-4 [facility] Comment on above: Order Comment: Name Collection Type:: Clean-Voided Midstream Performed By: #### A DDONUAPLUS #### [address] Specificy [place],Urine 1.020 Normal 1.001-1.030 [facility] Comment on above: Order Comment: Name Collection Type:: Clean-Voided Midstream Performed By: #### A DDONUAPLUS #### [address] Squamous Epithelial Cell,Urine 0-1 Normal 0-2 [facility] Comment on above: Order Comment: Name Collection Type:: Clean-Voided Midstream Performed By: #### A DDONUAPLUS #### [address] Urobilinogen,Urine Normal Normal Normal [facility] Comment on above: Order Comment: Name Collection Type:: Clean-Voided Midstream Performed By: #### A DDONUAPLUS #### [place] [address] [place] WBC,Urine 1-2 Normal 0-4 [facility] Comment on above: Order Comment: Name Collection Type:: Clean-Voided Midstream Performed By: #### A DDONUAPLUS #### [address] ECG 12 lead ECGon 04-12-2022 ECG 12 lead ECG [facility] [place] [address] [place] [address] Electrocardiograph Report Signed Patient: Evelin Patterson MR#: [id number] 005 : 1955 Acct:[id number] Age/Sex: 66 / M ADM Date: 04/12/22 Loc: ER Room: Type: [facility] ER Attending Dr: Ordering Provider: Ramesh [...] Prolonged QT Confirmed by Ramesh BYRD DO ([id number]) on 04/12/2022 4:38:01 PM Referred By: Electronically Signed By:Ramesh BYRD DO Transcribed By: MUS Signed By Ramesh Byrd DO 0 04/12/22 1638 Normal [facility] Eosinophils Auto (Bld) [#/Vo l]Ordered By: Ramesh Byrd on 04-12-2022 Eosinophils (Bld) [#/Vol] 0.2 10*3/uL 0.0-0.45 [facility] Eosinophils/100 WBC Auto (Bl d)Ordered By: Ramesh Byrd on 04-12-2022 Eosinophils/100 WBC (Bld) 2.7 % . [facility] Erythrocyte distribution wid th Auto (RBC) [Ratio]Ordered By: Ramesh Byrd on 04-12-2022 Erythrocyte distribution width (RBC) [Ratio] 16.7 % 12.0-14.8 [facility] Estimated glomerular filtrat ion rate (GFR) non- AmericanOrdered By: Ramesh Byrd on 04-12-2022 GFR/1.73 sq M.predicted among non-blacks MDRD (S/P/Bld) [Vol rate/Area] > 60 mL/Min [facility] Globulin Calc (S) [Mass/Vol] Ordered By: Ramesh Byrd on 04-12-2022 Globulin (S) [Mass/Vol] 4.7 g/dL [facility] Glucose Glucometer (BldC) [M ass/Vol]Ordered By: Ramesh Byrd on 04-12-2022 Glucose [Mass/Vol] 168 mg/dL [facility] Comment on above: Random Glucose Refer ence Range is dependent on time and content of last meal. Glucose of more than 200 mg/dL in a nonstressed, ambulatory subject supports the diagnosis of Diabetes Mellitus. Glucose Poct Glucometerson 0 04-12-2022 Glucose [Mass/Vol] 168 mg/dL Normal [facility] Comment on above: Result Comment: [place] om Glucose Reference Range is dependent on time and content of last meal. Glucose of more than 200 mg/dL in a nonstressed, ambulatory subject supports the diagnosis of Diabetes Mellitus. PERFORMED BY: [facility] [address] [place] [address] PATHOLOGIST MEDICAL SPECIALIST CHARLENE HERNANDEZ M.D. Performed By: #### G CARMEN #### Point of Care testing , Hematocrit Auto (Bld) [Volum e fraction]Ordered By: Ramesh Byrd on 04-12-2022 Hematocrit (Bld) [Volume fraction] 36.7 % 38.8-50.0 [facility] Ketones Auto test strip (U) [Mass/Vol]Ordered By: Ramesh Byrd on 04-12-2022 Ketones (U) [Mass/Vol] Trace Negative [facility] Laboratory - Chemistry and C hemistry - challengeOrdered By: Ramesh Byrd on 04-12-2022 Magnesium [Mass/Vol] 1.3 mg/dL 1.6-2.6 [facility] Natriuretic peptide B (Bld) [Mass/Vol] 196.0 pg/mL 5-100 [facility] Laboratory - CoagulationOrde red By: Ramesh Byrd on 04-12-2022 PT Coag (PPP) [Time] 12.5 s 9.0-12.9 [facility] Laboratory - Hematology and Cell countsOrdered By: Ramesh Byrd on 04-12-2022 Nucleated RBC/100 WBC (Bld) [Ratio] 0.1 % 0-0.5 [facility] Laboratory - UrinalysisOrder ed By: Ramesh Byrd on 04-12-2022 Hyaline casts LM Ql (Urine sed) 0-8 [LPF] 0-8 [facility] Lymphocytes Auto (Bld) [#/Vo l]Ordered By: Ramesh Byrd on 04-12-2022 Lymphocytes (Bld) [#/Vol] 1.0 10*3/uL 1.00-4.8 [facility] Lymphocytes/100 WBC Auto (Bl d)Ordered By: Ramesh Byrd on 04-12-2022 Lymphocytes/100 WBC (Bld) 16.1 % . [facility] MCH Auto (RBC) [Entitic mass ]Ordered By: Ramesh Byrd on 04-12-2022 MCH (RBC) [Entitic mass] 31.0 pg 27.5-35.2 [facility] MCHC Auto (RBC) [Mass/Vol]Or dered By: Ramesh Byrd on 04-12-2022 MCHC (RBC) [Mass/Vol] 33.1 g/dL 32.5-35.6 [facility] MCV Auto (RBC) [Entitic vol] Ordered By: Ramesh Byrd on 04-12-2022 MCV (RBC) [Entitic vol] 93.5 fL 83.5-101 [facility] Magnesiumon 04-12-2022 Magnesium [Mass/Vol] 1.3 mg/dL Low 1.6-2.6 [facility] Comment on above: Performed By: #### G LULS #### Point of Care testing , Monocytes Auto (Bld) [#/Vol] Ordered By: Ramesh Byrd on 04-12-2022 Monocytes (Bld) [#/Vol] 0.8 10*3/uL 0.0-0.8 [facility] Monocytes/100 WBC Auto (Bld) Ordered By: Ramesh Byrd on 04-12-2022 Monocytes/100 WBC (Bld) 12.0 % . [facility] Neutrophils Auto (Bld) [#/Vo l]Ordered By: Ramesh Byrd on 04-12-2022 Neutrophils (Bld) [#/Vol] 4.4 10*3/uL 1.8-7.7 [facility] Neutrophils/100 WBC Auto (Bl d)Ordered By: Ramesh Byrd on 04-12-2022 Neutrophils/100 WBC (Bld) 68.6 % . [facility] Nitrite Test strip Ql (U)Ord ered By: Ramesh Byrd on 04-12-2022 Nitrite Ql (U) Negative Negative [facility] No Panel InformationOrdered By: Ramesh Byrd on 04-12-2022 Estimated GFR () > 60 mL/Min [facility] Comment on above: GFR estimated refere nce range: According to KDOQI guidelines, <60 ml/min/1.73m2 is sufficient to diagnose a patient with chronic kidney disease. Pharmacy Creatinine Clearance (Chem 97.67 [facility] Partial Thromboplastin Timeo n 04-12-2022 aPTT Coag (Bld) [Time] 24.8 s Low 25.1-36.5 [facility] Comment on above: Result Comment: PERF ORMED BY: [place] [address] PATHOLOGIST MEDICAL SPECIALIST CHARLENE HERNANDEZ M.D. Performed By: #### C MP, TSH3, PT, HS TROP, PTT, BNP, MG, CBC #### [facility] [address] Platelet mean volume Auto (B ld) [Entitic vol]Ordered By: Ramesh Byrd on 04-12-2022 Platelet mean volume (Bld) [Entitic vol] 8.0 fL 6.6-10.1 [facility] Platelet poor plasma interna tional normalized ratio (INR) by coagulation assay (relatOrdered By: Ramesh Byrd on 04-12-2022 INR Coag (PPP) [Relative time] 1.1 {INR} [facility] Comment on above: INR Therapeutic [...] 04-12-2022 Platelets (Bld) [#/Vol] 191 10*3/uL 150-450 [facility] Protein Auto test strip (U) [Mass/Vol]Ordered By: Ramesh Byrd on 04-12-2022 Protein (U) [Mass/Vol] 100 mg/dL Negative [facility] Protein [Mass/volume] in Ser um or PlasmaOrdered By: Ramesh Byrd on 04-12-2022 Protein [Mass/Vol] 7.0 g/dL 6.1-7.9 [facility] Prothrombin Time INRon 04-12 INR Coag (PPP) [Relative time] 1.1 {INR} Normal [facility] Comment on above: Result Comment: [...] PTT, BNP, MG, CBC #### [facility] [address] PT Coag (PPP) [Time] 12.5 s Normal 9.0-12.9 [facility] Comment on above: Performed By: #### C MP, TSH3, PT, HS TROP, PTT, BNP, MG, CBC #### [facility] [address] RBC Auto (Bld) [#/Vol]Ordere d By: Ramesh Byrd on 04-12-2022 RBC (Bld) [#/Vol] 3.93 10*6/uL 3.90-5.60 [facility] Serum or plasma alanine vivas otransferase measurement without P-5'-P (enzymatic activiOrdered By: Ramesh Byrd on 04-12-2022 ALT No additional P-5'-P [Catalytic activity/Vol] 34 U/L 10-60 [facility] Serum or plasma albumin/glob ulin mass ratioOrdered By: Ramesh Byrd on 04-12-2022 Albumin/Globulin [Mass ratio] 0.5 {ratio} [facility] Serum or plasma alkaline dilan sphatase measurement (enzymatic activity/volume)Ordered By: Ramesh Byrd on 04-12-2022 ALP [Catalytic activity/Vol] 97 U/L 32-92 [facility] Serum or plasma anion gap de terminationOrdered By: Ramesh Byrd on 04-12-2022 Anion gap [Moles/Vol] 17.1 mmol/L 6.0-15.0 [facility] Serum or plasma aspartate am inotransferase measurement (enzymatic activity/volume)Ordered By: Ramesh Byrd on 04-12-2022 AST [Catalytic activity/Vol] 136 U/L 10-42 [facility] Serum or plasma calcium osbaldo urement (mass/volume)Ordered By: Ramesh Byrd on 04-12-2022 Calcium [Mass/Vol] 8.6 mg/dL 8.2-10.2 [facility] Serum or plasma chloride judith surement (moles/volume)Ordered By: Ramesh Byrd on 04-12-2022 Chloride [Moles/Vol] 97 mmol/L 95-114 [facility] Serum or plasma glucose osbaldo urement (mass/volume)Ordered By: Ramesh Byrd on 04-12-2022 Glucose [Mass/Vol] 164 mg/dL 70-100 [facility] Comment on above: ADA recommended refe rence range Random Glucose Reference Range is dependent on time and content of last meal. Glucose of more than 200 mg/dL in a nonstressed, ambulatory subject supports the diagnosis of Diabetes Mellitus. Serum or plasma potassium me asurement (moles/volume)Ordered By: Ramesh Byrd on 04-12-2022 Potassium [Moles/Vol] 3.5 mmol/L 3.5-5.1 [facility] Serum or plasma sodium measu rement (moles/volume)Ordered By: Ramesh Byrd on 04-12-2022 Sodium [Moles/Vol] 136 mmol/L 136-146 [facility] Serum or plasma total biliru bin measurement (mass/volume)Ordered By: Ramesh Byrd on 04-12-2022 Bilirubin [Mass/Vol] 1.3 mg/dL 0.3-1.2 [facility] Comment on above: Samples from patient s who have taken Naproxen have shown spurious elevation in Total Bilirubin levels. A metabolite of Naproxen, O-desmethylnaproxen, has been shown to interfere with the Jendrassik-Grof method for measuring Total Bilirubin. Serum or plasma total carbon dioxide measurement (moles/volume)Ordered By: Ramesh Byrd on 04-12-2022 CO2 [Moles/Vol] 25.4 mmol/L 22.0-30.0 [facility] Serum or plasma urea nitroge n measurement (mass/volume)Ordered By: Ramesh quan on 04-12-2022 Urea nitrogen [Mass/Vol] 13 mg/dL 9- [facility] Specific gravity Auto test s trip (U) [Rel density]Ordered By: Ramesh quan on 04-12-2022 Specific gravity (U) [Rel density] 1.020 1.001-1.030 [facility] Squamous epithelial cells de tection in urine sediment by light microscopyOrdered By: Ramesh quan on 04-12-2022 Epithelial cells.squamous LM Ql (Urine sed) 0-1 [HPF] 0-2 [facility] TSH DL <= 0.005 mIU/L QnOrde red By: Ramesh Byrd on 04-12-2022 TSH Qn 13.14 m[IU]/L 0.45-5.33 [facility] Thyroid Stimulating Hormoneo n 04-12-2022 TSH Qn 13.14 m[IU]/L High 0.45-5.33 [facility] Comment on above: Result Comment: PERF ORMED BY: [place] [address] PATHOLOGIST MEDICAL SPECIALIST CHARLENE HERNANDEZ M.D. Performed By: #### G LULS #### Point of Care testing , Troponin I High Sensitivityo n 04-12-2022 Troponin I High Sensitivity 18 pg/mL Normal 0-20 [facility] Comment on above: Result Comment: PERF ORMED BY: [facility] [address] [place] [id number] PATHOLOGIST MEDICAL SPECIALIST CHARLENE HERNANDEZ M.D. Performed By: #### C MP, TSH3, PT, HS TROP, PTT, BNP, MG, CBC #### [facility] [address] Troponin I.cardiac [Mass/vol ume] in Serum or Plasma by High sensitivity methodOrdered By: Ramesh Byrd on 04-12-2022 Troponin I.cardiac High sensitivity method [Mass/Vol] 18 pg/mL 0-20 [facility] Urine bacteria detection by automated methodOrdered By: Ramesh Byrd on 04-12-2022 Bacteria Auto Ql (U) None seen None Seen [facility] Urine clarity by refractomet ry automatedOrdered By: Ramesh Byrd on 04-12-2022 Clarity Refractometry automated (U) Clear Clear [facility] Urine glucose measurement by automated test strip (mass/volume)Ordered By: Ramesh Byrd on 04-12-2022 Glucose Auto test strip (U) [Mass/Vol] Normal mg/dL Normal [facility] Urine hemoglobin detection b y automated test stripOrdered By: Ramesh Byrd on 04-12-2022 Hemoglobin Auto test strip Ql (U) 2+ Negative [facility] Urine leukocyte esterase det ection by automated test stripOrdered By: Ramesh Byrd on 04-12-2022 Leukocyte esterase Auto test strip Ql (U) Negative Negative [facility] Urobilinogen Auto test strip (U) [Mass/Vol]Ordered By: Ramesh Byrd on 04-12-2022 Urobilinogen (U) [Mass/Vol] Normal mg/dL Normal [facility] XR chest 2V*on 04-12-2022 XR chest 2V* [facility] [address] XRay Report Signed Patient: Evelin Patterson MR#: [id number] 005 : 1955 Acct:[id number] Age/Sex: 66 / M ADM Date: 04/12/22 Loc: ER Room: Type: [facility] ER Attending Dr: Copies to: Ramesh [...] Jessica Cazares M.D.04/12/2022 11:53 AM Dictation Location: [place] [address] Transcribed By: [place] 04/12/22 1153 Dictated By: Jessica Cazares MD 04/12/22 1151 Signed By: 04/12/22 1153 Normal [facility] pH Auto test strip (U)Ordere d By: Ramesh Byrd on 04-12-2022 pH (U) 6.5 [pH] 5.0-9.0 [facility] Albumin [Mass/volume] in Ser um or PlasmaOrdered By: Lupe Hernandez on 04-09-2022 Albumin [Mass/Vol] 1.9 g/dL 3.2-5.5 [facility] Basophils Auto (Bld) [#/Vol] Ordered By: Lupe Hernandez on 04-09-2022 Basophils (Bld) [#/Vol] 0.1 10*3/uL 0.0-0.2 [facility] Basophils/100 WBC Auto (Bld) Ordered By: Lupe Hernandez on 04-09-2022 Basophils/100 WBC (Bld) 1.3 % . [facility] Blood hemoglobin measurement (mass/volume)Ordered By: Lupe Hernandez on 04-09-2022 Hemoglobin (Bld) [Mass/Vol] 11.2 g/dL 13.0-17.0 [facility] Blood leukocytes automated c ount (number/volume)Ordered By: Lupe Hernandez on 04-09-2022 WBC (Bld) [#/Vol] 5.4 10*3/uL 4.5-11.0 [facility] Creatinine and Glomerular fi ltration rate.predicted panel (S/P/Bld)Ordered By: Lupe Hernandez on 04-09-2022 Creatinine [Mass/Vol] 0.88 mg/dL 0.64-1.27 [facility] Eosinophils Auto (Bld) [#/Vo l]Ordered By: Lupe Hernandez on 04-09-2022 Eosinophils (Bld) [#/Vol] 0.3 10*3/uL 0.0-0.45 [facility] Eosinophils/100 WBC Auto (Bl d)Ordered By: Lupe Hernandez on 04-09-2022 Eosinophils/100 WBC (Bld) 5.6 % . [facility] [facility] Erythrocyte distribution wid th Auto (RBC) [Ratio]Ordered By: Lupe Hernandez on 04-09-2022 Erythrocyte distribution width (RBC) [Ratio] 16.5 % 12.0-14.8 [facility] Estimated glomerular filtrat ion rate (GFR) non- AmericanOrdered By: Lupe Hernandez on 04-09-2022 GFR/1.73 sq M.predicted among non-blacks MDRD (S/P/Bld) [Vol rate/Area] > 60 mL/Min [facility] Globulin Calc (S) [Mass/Vol] Ordered By: Lupe Hernandez on 04-09-2022 Globulin (S) [Mass/Vol] 4.2 g/dL [facility] Glucose Glucometer (BldC) [M ass/Vol]Ordered By: Lupe Hernandez on 04-09-2022 Glucose [Mass/Vol] 178 mg/dL [facility] Comment on above: Random Glucose Refer ence Range is dependent on time and content of last meal. Glucose of more than 200 mg/dL in a nonstressed, ambulatory subject supports the diagnosis of Diabetes Mellitus. Hematocrit Auto (Bld) [Volum e fraction]Ordered By: Lupe Hernandez on 04-09-2022 Hematocrit (Bld) [Volume fraction] 33.6 % 38.8-50.0 [facility] Laboratory - Hematology and Cell countsOrdered By: Lupe Hernandez on 04-09-2022 Nucleated RBC/100 WBC (Bld) [Ratio] 0.2 % 0-0.5 [facility] Lymphocytes Auto (Bld) [#/Vo l]Ordered By: Lupe Hernandez on 04-09-2022 Lymphocytes (Bld) [#/Vol] 1.0 10*3/uL 1.00-4.8 [facility] Lymphocytes/100 WBC Auto (Bl d)Ordered By: Lupe Hernandez on 04-09-2022 Lymphocytes/100 WBC (Bld) 18.3 % . [facility] MCH Auto (RBC) [Entitic mass ]Ordered By: Lupe Hernandez on 04-09-2022 MCH (RBC) [Entitic mass] 31.1 pg 27.5-35.2 [facility] MCHC Auto (RBC) [Mass/Vol]Or dered By: Lupe Hernandez on 04-09-2022 MCHC (RBC) [Mass/Vol] 33.5 g/dL 32.5-35.6 [facility] MCV Auto (RBC) [Entitic vol] Ordered By: Lupe Hernandez on 04-09-2022 MCV (RBC) [Entitic vol] 93.0 fL 83.5-101 [facility] Monocytes Auto (Bld) [#/Vol] Ordered By: Lupe Hernandez on 04-09-2022 Monocytes (Bld) [#/Vol] 0.6 10*3/uL 0.0-0.8 [facility] Monocytes/100 WBC Auto (Bld) Ordered By: Lupe Hernandez on 04-09-2022 Monocytes/100 WBC (Bld) 11.0 % . [facility] Neutrophils Auto (Bld) [#/Vo l]Ordered By: Lupe Hernandez on 04-09-2022 Neutrophils (Bld) [#/Vol] 3.4 10*3/uL 1.8-7.7 [facility] Neutrophils/100 WBC Auto (Bl d)Ordered By: Lupe Hernandez on 04-09-2022 Neutrophils/100 WBC (Bld) 63.8 % . [facility] No Panel InformationOrdered By: Lupe Hernandez on 04-09-2022 Bedside Glucose Comment Glu2: cleaned meter [facility] Estimated GFR () > 60 mL/Min [facility] Comment on above: GFR estimated refere nce range: According to KDOQI guidelines, <60 ml/min/1.73m2 is sufficient to diagnose a patient with chronic kidney disease. Pharmacy Creatinine Clearance (Chem 130.27 [facility] Platelet mean volume Auto (B ld) [Entitic vol]Ordered By: Lupe Hernandez on 04-09-2022 Platelet mean volume (Bld) [Entitic vol] 7.6 fL 6.6-10.1 [facility] Platelets Auto (Bld) [#/Vol] Ordered By: Lupe Hernandez on 04-09-2022 Platelets (Bld) [#/Vol] 214 10*3/uL 150-450 [facility] Protein [Mass/volume] in Ser um or PlasmaOrdered By: Lupe Hernandez on 04-09-2022 Protein [Mass/Vol] 6.1 g/dL 6.1-7.9 [facility] RBC Auto (Bld) [#/Vol]Ordere d By: Lupe Hernandez on 04-09-2022 RBC (Bld) [#/Vol] 3.61 10*6/uL 3.90-5.60 [facility] Serum or plasma alanine vivas otransferase measurement without P-5'-P (enzymatic activiOrdered By: Lupe Hernandez on 04-09-2022 ALT No additional P-5'-P [Catalytic activity/Vol] 21 U/L 10-60 [facility] Serum or plasma albumin/glob ulin mass ratioOrdered By: Lupe Hernandez on 04-09-2022 Albumin/Globulin [Mass ratio] 0.5 {ratio} [facility] Serum or plasma alkaline dilan sphatase measurement (enzymatic activity/volume)Ordered By: Lupe Hernandez on 04-09-2022 ALP [Catalytic activity/Vol] 89 U/L 32-92 [facility] Serum or plasma anion gap de terminationOrdered By: Lupe Hernandez on 04-09-2022 Anion gap [Moles/Vol] 8.4 mmol/L 6.0-15.0 [facility] Serum or plasma aspartate am inotransferase measurement (enzymatic activity/volume)Ordered By: Lupe Hernandez on 04-09-2022 AST [Catalytic activity/Vol] 27 U/L 10-42 [facility] Serum or plasma calcium osbaldo urement (mass/volume)Ordered By: Lupe Hernandez on 04-09-2022 Calcium [Mass/Vol] 8.2 mg/dL 8.2-10.2 [facility] Serum or plasma chloride judith surement (moles/volume)Ordered By: Lupe Hernandez on 04-09-2022 Chloride [Moles/Vol] 98 mmol/L 95-114 [facility] Serum or plasma glucose osbaldo urement (mass/volume)Ordered By: Lupe Hernandez on 04-09-2022 Glucose [Mass/Vol] 150 mg/dL 70-100 [facility] Comment on above: ADA recommended refe rence range Random Glucose Reference Range is dependent on time and content of last meal. Glucose of more than 200 mg/dL in a nonstressed, ambulatory subject supports the diagnosis of Diabetes Mellitus. Serum or plasma potassium me asurement (moles/volume)Ordered By: Lupe Hernandez on 04-09-2022 Potassium [Moles/Vol] 3.4 mmol/L 3.5-5.1 [facility] Serum or plasma sodium measu rement (moles/volume)Ordered By: Lupe Hernandez on 04-09-2022 Sodium [Moles/Vol] 134 mmol/L 136-146 [facility] Serum or plasma total biliru bin measurement (mass/volume)Ordered By: Lupe Hernandez on 04-09-2022 Bilirubin [Mass/Vol] 0.7 mg/dL 0.3-1.2 [facility] Serum or plasma total carbon dioxide measurement (moles/volume)Ordered By: Lupe Hernandez on 04-09-2022 CO2 [Moles/Vol] 31.0 mmol/L 22.0-30.0 [facility] Serum or plasma urea nitroge n measurement (mass/volume)Ordered By: Lupe Hernandez on 04-09-2022 Urea nitrogen [Mass/Vol] 9 mg/dL 9- [facility] Bacterial blood cultureOrder ed By: Luke Moran on 04-07-2022 Bacteria identified Cx Nom (Bld) NO GROWTH 5 DAYS [facility] Laboratory - Chemistry and C hemistry - challengeOrdered By: Luke Moran on 08-25-2022 CO2 [Moles/Vol] 29.4 mmol/L 23.0-27.0 [facility] HCO3 (Bld) [Moles/Vol] 28.1 mmol/L 23.0-29.0 [facility] No Panel InformationOrdered By: Luke Moran on 04-04-2022 Arterial Blood Base Excess 3.4 mmol/L -3.0-3.0 [facility] Arterial Blood Oxygen Content 6.4 mmol/L 6.6-9.7 [facility] Arterial Blood Oxygen Saturation 92.1 % 95.0-100.0 [facility] Arterial Blood Partial Pressure CO2 43.2 mm[Hg] 35.0-45.0 [facility] Arterial Blood Partial Pressure O2 61.4 mm[Hg] 80.0-100.0 [facility] Arterial Blood pH 7.43 7.35-7.45 [facility] Blood Gas Critical Value See comment [facility] Comment on above: Critical Value kaufman d on: 04/04/2022 at 09:33 Blood Gas Liter Flow 2 L/min [facility] Blood Gas Sample Site Left radial [facility] FiO2 28 % [facility] Oxygen Delivery Device Nasal cannula [facility] Automated erythrocytes count in urine sediment (number/area)Ordered By: Jair Gabriel on 04-03-2022 RBC Auto (Urine sed) [#/Area] 3-4 [HPF] 0-4 [facility] Automated leukocytes count i n urine sediment (number/area)Ordered By: Jair Gabriel on 04-03-2022 WBC Auto (Urine sed) [#/Area] None seen [HPF] 0-4 [facility] Bilirubin Test strip Ql (U)O rdered By: Jair Gabriel on 04-03-2022 Bilirubin Ql (U) Negative Negative [facility] Color Auto (U)Ordered By: Tam Gabriel on 04-03-2022 Color (U) Yellow Yellow [facility] Hepatitis B virus surface Ag [Presence] in Serum or Plasma by ImmunoassayOrdered By: Luke Moran on 04-03-2022 HBV surface Ag IA Ql Negative Negative [facility] Comment on above: Performed at: [facility] [address] [id number] Salt Manager: Genaro Becerril PhD, Phone: [phone] IgA [Mass/volume] in Serum o r PlasmaOrdered By: Luke Moran on 04-03-2022 IgA [Mass/Vol] 697 mg/dL 61-437 [facility] IgG [Mass/volume] in Serum o r PlasmaOrdered By: Luke Moran on 04-03-2022 IgG [Mass/Vol] 1107 mg/dL 603-1613 [facility] IgM [Mass/volume] in Serum o r PlasmaOrdered By: Luke Moran on 04-03-2022 IgM [Mass/Vol] 91 mg/dL 20-172 [facility] Comment on above: Performed at: [facility] [employer] [address] [id number] Salt Manager: Genaro Becerril PhD, Phone: [phone] Immunofixation for UrineOrde red By: Luke Moran on 04-03-2022 Interpretation Immunofixation (U) [Interp] See comment . [facility] Comment on above: No monoclonality det ected. Performed at: [facility] [id number] Salt Manager: Genaro Becerril PhD, Phone: [phone] Immunoglobulin light chains. kappa.free [Mass/volume] in SerumOrdered By: Luke Moran on 04-03-2022 Immunoglobulin light chains.kappa.free (S) [Mass/Vol] 93.9 mg/L 3.3-19.4 [facility] Immunoglobulin light chains. kappa.free/Immunoglobulin light chains.lambda.free [MassOrdered By: Luke Moran on 04-03-2022 Immunoglobulin light chains.kappa.free/Immuno globulin light chains.lambda.free (S) [Mass ratio] 1.52 0.26-1.65 [facility] Comment on above: Performed at: [facility] [address] [id number] Salt Manager: Genaro Becerril PhD, Phone: [phone] Immunoglobulin light chains. lambda.free [Mass/volume] in Serum or PlasmaOrdered By: Luke Moran on 04-03-2022 Immunoglobulin light chains.lambda.free [Mass/Vol] 61.6 mg/L 5.7-26.3 [facility] Ketones Auto test strip (U) [Mass/Vol]Ordered By: Jair Gabriel on 04-03-2022 Ketones (U) [Mass/Vol] Negative Negative [facility] Laboratory - UrinalysisOrder ed By: Jair Gabriel on 04-03-2022 Hyaline casts LM Ql (Urine sed) 0-8 [LPF] 0-8 [facility] Nitrite Test strip Ql (U)Ord ered By: Jair Gabriel on 04-03-2022 Nitrite Ql (U) Negative Negative [facility] No Panel InformationOrdered By: Luke Moran on 04-03-2022 Hepatitis C Interpretation See comment . [facility] Comment on above: Negative Not infected with HCV, unless recent infection is suspected or other evidence exists to indicate HCV infection. Hepatitis C RNA Quantitative N/A [facility] Serum Immunofixation See comment . [facility] Comment on above: Immunofixation shows IgG monoclonal protein with lambda light chain specificity. Protein Auto test strip (U) [Mass/Vol]Ordered By: Jair Gabriel on 04-03-2022 Protein (U) [Mass/Vol] Negative Negative [facility] Random cortisol measurementO rdered By: Luke Moran on 04-03-2022 Cortisol [Mass/Vol] 5.8 ug/dL [facility] Comment on above: Reference range: AM 6 - 24 ug/dl PM <10 ug/dl Serum hepatitis B virus surf calin antibody detectionOrdered By: Luke Moran on 04-03-2022 HBV surface Ab Ql (S) Reactive . [facility] Comment on above: Non Reactive: Incons istent [...] IA [Rel units/Vol] 0.1 s/co ratio 0.0-0.9 [facility] Comment on above: --- 04/04/22 0736 -- - Hep C Ab previously reported as: <0.1 s/co ratio Specific gravity Auto test s trip (U) [Rel density]Ordered By: Jair Gabriel on 04-03-2022 Specific gravity (U) [Rel density] 1.035 1.001-1.030 [facility] Squamous epithelial cells de tection in urine sediment by light microscopyOrdered By: Jair Gabriel on 04-03-2022 Epithelial cells.squamous LM Ql (Urine sed) None seen [HPF] 0-2 [facility] TSH DL <= 0.005 mIU/L QnOrde red By: Luke Moran on 04-03-2022 TSH Qn 22.19 m[IU]/L 0.45-5.33 [facility] Urine bacteria detection by automated methodOrdered By: Jair Gabriel on 04-03-2022 Bacteria Auto Ql (U) None seen None Seen [facility] Urine clarity by refractomet ry automatedOrdered By: Jair Gabriel on 04-03-2022 Clarity Refractometry automated (U) Clear Clear [facility] Urine glucose measurement by automated test strip (mass/volume)Ordered By: Jair Gabriel on 04-03-2022 Glucose Auto test strip (U) [Mass/Vol] 100 mg/dL Normal [facility] Urine hemoglobin detection b y automated test stripOrdered By: Jair Gabriel on 04-03-2022 Hemoglobin Auto test strip Ql (U) 3+ Negative [facility] Urine leukocyte esterase det ection by automated test stripOrdered By: Jair Gabriel on 04-03-2022 Leukocyte esterase Auto test strip Ql (U) Negative Negative [facility] Urobilinogen Auto test strip (U) [Mass/Vol]Ordered By: Jair Gabriel on 04-03-2022 Urobilinogen (U) [Mass/Vol] Normal mg/dL Normal [facility] pH Auto test strip (U)Ordere d By: Jair Gabriel on 04-03-2022 pH (U) 5.0 [pH] 5.0-9.0 [facility] Activated partial thrombopla stin time (aPTT) in platelet poor plasma by coagulation aOrdered By: Jair Gabriel on 04-02-2022 aPTT Coag (PPP) [Time] 24.8 s 25.1-36.5 [facility] COVID-19 Positive/NegativeOr dered By: Jair Gabriel on 04-02-2022 SARS-CoV-2 (COVID-19) N gene MANJIT+probe Ql (Resp) Negative Negative [facility] Comment on above: Testing for SARS-CoV -2 by RT-PCR This test was developed and its performance characteristics determined by [employer] and validated at the [facility]. This test has not been [...] (COVID-19) Ag IA.rapid Ql (Resp) Negative Negative [facility] Comment on above: This is a duplicate Cristal SARS Antigen (GONZALO) result to be used for statistical tracking purpose only. Laboratory - Chemistry and C hemistry - challengeOrdered By: Jair Gabriel on 04-02-2022 Natriuretic peptide B (Bld) [Mass/Vol] 55.0 pg/mL 5-100 [facility] Laboratory - CoagulationOrde red By: Jair Gabriel on 04-02-2022 PT Coag (PPP) [Time] 11.9 s 9.0-12.9 [facility] No Panel InformationOrdered By: Luke Moran on 04-02-2022 D-Dimer Quantitative (PE/DVT) 2825 ng/mL 0-243 [facility] Comment on above: The reference [...] Jair Gabriel on 04-02-2022 SARS Antigen (LFIA) [facility] Platelet poor plasma interna tional normalized ratio (INR) by coagulation assay (relatOrdered By: Jair Gabriel on 04-02-2022 INR Coag (PPP) [Relative time] 1.1 {INR} [facility] Comment on above: INR Therapeutic [...] High sensitivity method [Mass/Vol] 26 pg/mL 0-20 [facility] Albumin [Mass/volume] in Ser um or PlasmaOrdered By: Sarah Osuna on 03-16-2022 Albumin [Mass/Vol] 1.9 g/dL 3.2-5.5 [facility] Creatinine and Glomerular fi ltration rate.predicted panel (S/P/Bld)Ordered By: Sarah Osuna on 03-16-2022 Creatinine [Mass/Vol] 1.27 mg/dL 0.64-1.27 [facility] Estimated glomerular filtrat ion rate (GFR) non- AmericanOrdered By: Sarah Osuna on 03-16-2022 GFR/1.73 sq M.predicted among non-blacks MDRD (S/P/Bld) [Vol rate/Area] 57 mL/Min [facility] Glucose Glucometer (BldC) [M ass/Vol]Ordered By: Xin Phan on 03-16-2022 Glucose [Mass/Vol] 377 mg/dL [facility] Comment on above: Random Glucose Refer ence Range is dependent on time and content of last meal. Glucose of more than 200 mg/dL in a nonstressed, ambulatory subject supports the diagnosis of Diabetes Mellitus. No Panel InformationOrdered By: Sarah Osuna on 03-16-2022 Estimated GFR () > 60 mL/Min [facility] Comment on above: GFR estimated refere nce range: According to KDOQI guidelines, <60 ml/min/1.73m2 is sufficient to diagnose a patient with chronic kidney disease. Pharmacy Creatinine Clearance (Chem 90.76 [facility] Serum or plasma calcium osbaldo urement (mass/volume)Ordered By: Sarah Osuna on 03-16-2022 Calcium [Mass/Vol] 8.4 mg/dL 8.2-10.2 [facility] Serum or plasma chloride judith surement (moles/volume)Ordered By: Sarah Osuna on 03-16-2022 Chloride [Moles/Vol] 99 mmol/L 95-114 [facility] Serum or plasma glucose osbaldo urement (mass/volume)Ordered By: Sarah Osuna on 03-16-2022 Glucose [Mass/Vol] 265 mg/dL 70-100 [facility] Comment on above: Delta: 480 on -1040 ADA recommended reference range Random Glucose Reference Range is dependent on time and content of last meal. Glucose of more than 200 mg/dL in a nonstressed, ambulatory subject supports the diagnosis of Diabetes Mellitus. Serum or plasma potassium me asurement (moles/volume)Ordered By: Xin Phan on 03-16-2022 Potassium [Moles/Vol] 4.0 mmol/L 3.5-5.1 [facility] Serum or plasma sodium measu rement (moles/volume)Ordered By: Sarah Osuna on 03-16-2022 Sodium [Moles/Vol] 132 mmol/L 136-146 [facility] Serum or plasma total carbon dioxide measurement (moles/volume)Ordered By: Sarah Osuna on 03-16-2022 CO2 [Moles/Vol] 25.4 mmol/L 22.0-30.0 [facility] Serum or plasma urea nitroge n measurement (mass/volume)Ordered By: Sarah Osuna on 03-16-2022 Urea nitrogen [Mass/Vol] 24 mg/dL 9-23 [facility] Serum phospholipid phosphoru s measurement (mass/volume)Ordered By: Xin Phan on 03-16-2022 Phospholipid phosphorus (S) [Mass/Vol] 2.0 mg/dL 2.5-4.6 [facility] No Panel InformationOrdered By: Xin Phan on 03-15-2022 Bedside Glucose Comment See comment [facility] Comment on above: Glu2: WILL NOTIFY DR /RN Bedside Glucose #2 Comment Cleaned meter [facility] Automated erythrocytes count in urine sediment (number/area)Ordered By: Sarah Osuna on 03-14-2022 RBC Auto (Urine sed) [#/Area] 0-1 [HPF] 0-4 [facility] Automated leukocytes count i n urine sediment (number/area)Ordered By: Sarah Osuna on 03-14-2022 WBC Auto (Urine sed) [#/Area] 0-1 [HPF] 0-4 [facility] Basophils Auto (Bld) [#/Vol] Ordered By: Leah Huang on 03-14-2022 Basophils (Bld) [#/Vol] 0.0 10*3/uL 0.0-0.2 [facility] Basophils/100 WBC Auto (Bld) Ordered By: Leah Huang on 03-14-2022 Basophils/100 WBC (Bld) 0.2 % . [facility] Bilirubin Auto test strip Ql (U)Ordered By: Sarah Osuna on 03-14-2022 Bilirubin Ql (U) Negative Negative [facility] Blood hemoglobin measurement (mass/volume)Ordered By: Leah Huang on 03-14-2022 Hemoglobin (Bld) [Mass/Vol] 11.6 g/dL 13.0-17.0 [facility] Blood leukocytes automated c ount (number/volume)Ordered By: Leah Huang on 03-14-2022 WBC (Bld) [#/Vol] 6.0 10*3/uL 4.5-11.0 [facility] Creatinine [Mass/volume] in UrineOrdered By: Sarah Osuna on 03-14-2022 Creatinine (U) [Mass/Vol] 76.9 mg/dL [facility] Comment on above: No reference range e stablished Eosinophils Auto (Bld) [#/Vo l]Ordered By: Leah Huang on 03-14-2022 Eosinophils (Bld) [#/Vol] 0.1 10*3/uL 0.0-0.45 [facility] Eosinophils/100 WBC Auto (Bl d)Ordered By: Leah Huang on 03-14-2022 Eosinophils/100 WBC (Bld) 1.4 % . [facility] Erythrocyte distribution wid th Auto (RBC) [Ratio]Ordered By: Leah Huang on 03-14-2022 Erythrocyte distribution width (RBC) [Ratio] 15.8 % 12.0-14.8 [facility] Globulin Calc (S) [Mass/Vol] Ordered By: Leah Huang on 03-14-2022 Globulin (S) [Mass/Vol] 3.8 g/dL [facility] Glucose mean value [Mass/vol ume] in Blood Estimated from glycated hemoglobinOrdered By: Leah Huang on 03-14-2022 Average glucose Estimated from glycated hemoglobin (Bld) [Mass/Vol] 329 mg/dL [facility] Hematocrit Auto (Bld) [Volum e fraction]Ordered By: Leah Huang on 03-14-2022 Hematocrit (Bld) [Volume fraction] 35.1 % 38.8-50.0 [facility] Hemoglobin A1c percentageOrd ered By: Leah Huang on 03-14-2022 HbA1c (Bld) [Mass fraction] 13.1 % 4.3-5.6 [facility] Comment on above: Increased risk for d iabetes: 5.7 - 6.4 diabetes: >6.4 glycemic control for adults with diabetes: <7.0 Ketones Auto test strip (U) [Mass/Vol]Ordered By: Sarah Osuna on 03-14-2022 Ketones (U) [Mass/Vol] Negative Negative [facility] Laboratory - Hematology and Cell countsOrdered By: Leah Huang on 03-14-2022 Nucleated RBC/100 WBC (Bld) [Ratio] 0.1 % 0-0.5 [facility] Laboratory - UrinalysisOrder ed By: Sarah Osuna on 03-14-2022 Hyaline casts LM Ql (Urine sed) 0-8 [LPF] 0-8 [facility] Lymphocytes Auto (Bld) [#/Vo l]Ordered By: Leah Huang on 03-14-2022 Lymphocytes (Bld) [#/Vol] 1.4 10*3/uL 1.00-4.8 [facility] Lymphocytes/100 WBC Auto (Bl d)Ordered By: Leah Huang on 03-14-2022 Lymphocytes/100 WBC (Bld) 22.7 % . [facility] MCH Auto (RBC) [Entitic mass ]Ordered By: Leah Huang on 03-14-2022 MCH (RBC) [Entitic mass] 29.9 pg 27.5-35.2 [facility] MCHC Auto (RBC) [Mass/Vol]Or dered By: Leah Huang on 03-14-2022 MCHC (RBC) [Mass/Vol] 33.0 g/dL 32.5-35.6 [facility] MCV Auto (RBC) [Entitic vol] Ordered By: Leah Huang on 03-14-2022 MCV (RBC) [Entitic vol] 90.4 fL 83.5-101 [facility] Monocytes Auto (Bld) [#/Vol] Ordered By: Leah Huang on 03-14-2022 Monocytes (Bld) [#/Vol] 0.5 10*3/uL 0.0-0.8 [facility] Monocytes/100 WBC Auto (Bld) Ordered By: Leah Huang on 03-14-2022 Monocytes/100 WBC (Bld) 9.0 % . [facility] Neutrophils Auto (Bld) [#/Vo l]Ordered By: Leah Huang on 03-14-2022 Neutrophils (Bld) [#/Vol] 4.0 10*3/uL 1.8-7.7 [facility] Neutrophils/100 WBC Auto (Bl d)Ordered By: Leah Huang on 03-14-2022 Neutrophils/100 WBC (Bld) 66.7 % . [facility] Platelet mean volume Auto (B ld) [Entitic vol]Ordered By: Leah Huang on 03-14-2022 Platelet mean volume (Bld) [Entitic vol] 8.9 fL 6.6-10.1 [facility] Platelets Auto (Bld) [#/Vol] Ordered By: Leah Huang on 03-14-2022 Platelets (Bld) [#/Vol] 143 10*3/uL 150-450 [facility] Protein Auto test strip (U) [Mass/Vol]Ordered By: Sarah Osuna on 03-14-2022 Protein (U) [Mass/Vol] Negative Negative [facility] Protein [Mass/volume] in Ser um or PlasmaOrdered By: Leah Huang on 03-14-2022 Protein [Mass/Vol] 5.8 g/dL 6.1-7.9 [facility] Protein [Mass/volume] in Uri neOrdered By: Sarah Osuna on 03-14-2022 Protein (U) [Mass/Vol] 13 mg/dL 0-9 [facility] RBC Auto (Bld) [#/Vol]Ordere d By: Leah Huang on 03-14-2022 RBC (Bld) [#/Vol] 3.88 10*6/uL 3.90-5.60 [facility] Serum or plasma alanine vivas otransferase measurement without P-5'-P (enzymatic activiOrdered By: Leah Huang on 03-14-2022 ALT No additional P-5'-P [Catalytic activity/Vol] 35 U/L 10-60 [facility] Serum or plasma albumin/glob ulin mass ratioOrdered By: Leah Huang on 03-14-2022 Albumin/Globulin [Mass ratio] 0.5 {ratio} [facility] Serum or plasma alkaline dilan sphatase measurement (enzymatic activity/volume)Ordered By: Leah Huang on 03-14-2022 ALP [Catalytic activity/Vol] 120 U/L 32-92 [facility] Serum or plasma aspartate am inotransferase measurement (enzymatic activity/volume)Ordered By: Leah Huang on 03-14-2022 AST [Catalytic activity/Vol] 36 U/L 10-42 [facility] Serum or plasma total biliru bin measurement (mass/volume)Ordered By: Leah Huang on 03-14-2022 Bilirubin [Mass/Vol] 1.0 mg/dL 0.3-1.2 [facility] Squamous epithelial cells de tection in urine sediment by light microscopyOrdered By: Sarah Osuna on 03-14-2022 Epithelial cells.squamous LM Ql (Urine sed) None seen [HPF] 0-2 [facility] Urea nitrogen [Mass/volume] in UrineOrdered By: Leah Huang on 03-14-2022 Urea nitrogen (U) [Mass/Vol] 454 mg/dL Not Estab. [facility] Comment on above: Performed at: [address] [id number] Salt Manager: Genaro Becerril PhD, Phone: [phone] Urine appearanceOrdered By: Sarah Osuna on 03-14-2022 Appearance (U) Clear Clear [facility] Urine bacteria detection by automated methodOrdered By: Sarah Osuna on 03-14-2022 Bacteria Auto Ql (U) None seen None Seen [facility] Urine colorOrdered By: Sarah Osuna on 03-14-2022 Color (U) Yellow Yellow [facility] Urine glucose measurement by automated test strip (mass/volume)Ordered By: Sarah Osuna on 03-14-2022 Glucose Auto test strip (U) [Mass/Vol] >=1000 mg/dL Normal [facility] Urine hemoglobin detection b y automated test stripOrdered By: Sarah Osuna on 03-14-2022 Hemoglobin Auto test strip Ql (U) 2+ Negative [facility] Urine leukocyte esterase det ection by automated test stripOrdered By: Sarah Osuna on 03-14-2022 Leukocyte esterase Auto test strip Ql (U) Negative Negative [facility] Urine nitrite detection by a utomated test stripOrdered By: Sarah Osuna on 03-14-2022 Nitrite Auto test strip Ql (U) Negative Negative [facility] Urine protein/creatinine rat ioOrdered By: Sarah Osuna on 03-14-2022 Protein/Creatinine (U) [Ratio] 169 mg/g{Cre} 0-200 [facility] Urine sodium measurement (mo les/volume)Ordered By: Leah Huang on 03-14-2022 Sodium (U) [Moles/Vol] 20 mmol/L [facility] Comment on above: No reference range e stablished Urobilinogen Auto test strip (U) [Mass/Vol]Ordered By: Sarah Osuna on 03-14-2022 Urobilinogen (U) [Mass/Vol] Normal mg/dL Normal [facility] Yeast detection in urine sed iment by light microscopyOrdered By: Sarah Osuna on 03-14-2022 Yeast LM Ql (Urine sed) Budding yeast [HPF] Non e Seen [facility] Comment on above: 1+ BUDDING YEAST pH Auto test strip (U)Ordere d By: Sarah Osuna on 03-14-2022 pH (U) 1.020 [pH] 1.001-1.030 [facility] pH (U) 5.5 [pH] 5.0-9.0 [facility] POINT OF CARE GLUCOSEon 01-10 Glucose [Mass/Vol] 161 mg/dL Critically high 74-106 T [facility] Comment on above: Performed By: #### T , BMP #### [facility] [address] [place] [address] Dr. Ladan Diehl POINT OF CARE GLUCOSEon 01-09 Glucose [Mass/Vol] 358 mg/dL Critically high -106 [facility] [place] Comment on above: Performed By: #### A 1C #### [facility] [address] [place] [address] Dr. Ladan Diehl Glucose [Mass/Vol] 279 mg/dL Critically high -106 [facility] [place] Comment on above: Performed By: #### A 1C #### [facility] [address] [place] [address] Dr. Ladan Diehl Glucose [Mass/Vol] 247 mg/dL Critically high [facility]106 [facility] [place] Comment on above: Performed By: #### T SH, BMP #### [facility] [address] [place] [address] Dr. Ladan Diehl Glucose [Mass/Vol] 357 mg/dL Critically high -106 [facility] [place] Comment on above: Performed By: #### A 1C #### [facility] [address] [place] [address] Dr. Ladan Diehl PROF CHEM 8 (BAS METB)on Anion gap [Moles/Vol] 11.1 mmol/L Normal [facility] Comment on above: Performed By: #### T STEFF, BMP #### [facility] [address] [place] [address] Dr. Ladan Diehl Calcium [Mass/Vol] 8.8 mg/dL Normal 8.5-10.1 [facility] Comment on above: Performed By: #### T SH, BMP #### [facility] [address] [place] [address] Dr. Ladan Diehl Chloride [Moles/Vol] 99 mmol/L Normal 98-107 [facility] Comment on above: Performed By: #### T SH, BMP #### [facility] [address] [place] [address] Dr. Ladan Diehl CO2 [Moles/Vol] 27.2 mmol/L Normal 21.0-32.0 [facility] Comment on above: Performed By: #### T SH, BMP #### [facility] [address] [address] [address] Ladan Diehl Creatinine [Mass/Vol] 1.59 mg/dL Critically high 0.70-1.30 [facility] Comment on above: Performed By: #### T SH, BMP #### [facility] [address] [address] [address] Ladan Diehl EGFR-AF AFGHAN 53 mL/min/1.73m2 Critically low >=60 [facility] Comment on above: Performed By: #### T SH, BMP #### [facility] [address] [address] [address] Ladan Diehl EGFR-NON AF AFGHAN 44 mL/min/1.73m2 Critically low >=60 [facility] Comment on above: Performed By: #### T SH, BMP #### [facility] [address] [place] [address] Dr. Ladan Diehl Glucose [Mass/Vol] 284 mg/dL Critically high 74-106 [facility] [place] Comment on above: Performed By: #### T SH, BMP #### [facility] [address] [place] [address] Dr. Ladan Diehl Potassium [Moles/Vol] 4.2 mmol/L Normal 3.5-5.1 [facility] Comment on above: Performed By: #### T SH, BMP #### [facility] [address] [place] [address] Dr. Ladan Diehl Sodium [Moles/Vol] 133 mmol/L Critically low 136-145 [facility] Comment on above: Performed By: #### T SH, BMP #### [facility] [address] [place] [address] Dr. Ladan Diehl Urea nitrogen [Mass/Vol] 22.0 mg/dL Critically high 7.0-18 .0 [facility] Comment on above: Performed By: #### T SH, BMP #### [facility] [address] [place] [address] Dr. Ladan Diehl Urea nitrogen/Creatinine [Mass ratio] 13.8 mg/mg Normal [facility] Comment on above: Performed By: #### T SH, BMP #### [facility] [address] [address] [address] Ladan Diehl TROPONIN, HIGH SENSITIVITYon 01-24-2022 HSTROP 13.7 pg/mL Normal 4.0-76.1 [facility] Comment on above: Result Comment: CUT- OFF POINTS HAVE BEEN ESTABLISHED BASED ON THE FOURTH UNIVERSAL DEFINITIONS OF MYOCARDIAL INFARCTION. THE UPPER REFERENCE LIMIT (URL) OF TROPONIN, DEFINED THE 99TH PERCENTILE OF cTnI DISTRIBUTION IN A REFERENCE POPULATION, HAS BEEN CONFIRMED THE DECISION THRESHOLD FOR [place] DIAGNOSIS. Performed By: #### H STROPN #### [facility] [address] [address] [address] Ladan Diehl TSHon 01-24-2022 TSH 0.381 uIU/mL Normal 0.358-3.740 [facility] Comment on above: Performed By: #### T SH, BMP #### [facility] [address] [place] [address] Dr. Ladan Diehl US LIT DOP LEG [...] CAROL YIP Date: 2022-01-24 09:51 Normal [facility] BNPon 01-23-2022 Natriuretic peptide B (Bld) [Mass/Vol] 262.0 pg/mL Normal <=900.0 [facility] Comment on above: Performed By: #### A 1C #### [facility] [address] [place] [address] Dr. Ladan Diehl CBC AUTO DIFFon 01-23-2022 BASO # 0.1 103/ul Normal 0.0-0.1 [facility] Comment on above: Performed By: #### T SH, BMP #### [facility] [address] [place] [address] Dr. Ladan Diehl Basophils/100 WBC (Bld) 0.8 % Normal 0.2-2.0 [facility] [place] Comment on above: Performed By: #### T SH, BMP #### [facility] [address] [place] [address] Dr. Ladan Diehl EO # 0.3 103/ul Normal 0.0-0.7 [facility] Comment on above: Performed By: #### T SH, BMP #### [facility] [address] [place] [address] Dr. Ladan Diehl Eosinophils/100 WBC (Bld) 4.4 % Normal 0.9-7.0 [facility] Comment on above: Performed By: #### T SH, BMP #### [facility] [address] [place] [address] Dr. Ladan Diehl Erythrocyte distribution width (RBC) [Ratio] 14.0 % Normal 11.0-15.0 [facility] Comment on above: Performed By: #### T SH, BMP #### [facility] [address] [place] [address] Dr. Ladan Diehl Hematocrit (Bld) [Volume fraction] 38.3 % Critically low 42.0-54.0 [facility] Comment on above: Performed By: #### T SH, BMP #### [facility] [address] [place] [address] Dr. Ladan Diehl Hemoglobin (Bld) [Mass/Vol] 12.0 g/dL Critically low 14.0-18.0 [facility] Comment on above: Performed By: #### T SH, BMP #### [facility] [address] [place] [address] Dr. Ladan Diehl IG # 0.03 10e3/ul Normal 0.00-0.03 [facility] Comment on above: Performed By: #### T SH, BMP #### [facility] [address] [place] [address] Dr. Ladan Diehl IG % 0.5 % Normal 0.0-0.5 [facility] Comment on above: Performed By: #### T SH, BMP #### [facility] [address] [address] [address] Ladan Diehl LYMPH # 1.2 103/ul Normal 1.2-3.8 [facility] Comment on above: Performed By: #### T SH, BMP #### [facility] [address] [place] [address] Dr. Ladan Diehl Lymphocytes/100 WBC (Bld) 20.2 % Critically low 20.5-60.0 [facility] Comment on above: Performed By: #### T SH, BMP #### [facility] [address] [place] [address] Dr. Ladan Diehl MANUAL DIFF REQ NO Normal [facility] Comment on above: Performed By: #### T SH, BMP #### [facility] [address] [place] [address] Dr. Ladan Diehl MCH (RBC) [Entitic mass] 29.6 pg Normal 25.9-34.0 [facility] Comment on above: Performed By: #### T SH, BMP #### [facility] [address] [place] [address] Dr. Ladan Diehl MCHC (RBC) [Mass/Vol] 31.3 g/dL Normal 29.9-35.2 [facility] Comment on above: Performed By: #### T SH, BMP #### [facility] [address] [place] [address] Dr. Ladan Diehl MCV (RBC) [Entitic vol] 94.6 fL Critically high 80.0-94 .0 [facility] Comment on above: Performed By: #### T SH, BMP #### [facility] [address] [place] [address] Dr. Ladan Diehl MONO # 0.7 103/ul Normal 0.3-0.8 [facility] Comment on above: Performed By: #### T SH, BMP #### [facility] [address] [place] [address] Dr. Ladan Diehl Monocytes/100 WBC (Bld) 10.7 % Normal 1.7-12.0 [facility] [place] Comment on above: Performed By: #### T SH, BMP #### [facility] [address] [place] [address] Dr. Ladan Diehl NEUT # 3.9 103/ul Normal 1.4-6.5 [facility] Comment on above: Performed By: #### T SH, BMP #### [facility] [address] [place] [address] Dr. Ladan Diehl Neutrophils/100 WBC (Bld) 63.4 % Normal 43.0-75.0 [facility] Comment on above: Performed By: #### T SH, BMP #### [facility] [address] [place] [address] Dr. Ladan Diehl Platelet mean volume (Bld) [Entitic vol] 10.0 fL Normal 9.5-13.5 [facility] Comment on above: Performed By: #### T SH, BMP #### [facility] [address] [place] [address] Dr. Ladan Diehl PLT 171 103/ul Normal 150-450 [facility] Comment on above: Performed By: #### T SH, BMP #### [facility] [address] [place] [address] Dr. Ladan Diehl RBC 4.05 106/ul Critically low 4.70-6.10 [facility] Comment on above: Performed By: #### T SH, BMP #### [facility] [address] [place] [address] Dr. Ladan Diehl WBC 6.1 103/ul Normal 4.0-11.0 [facility] Comment on above: Performed By: #### T SH, BMP #### [facility] [address] [place] [address] Dr. Ladan Diehl CTA CHEST WO W [...] XIN BUI Date: 2022-01-23 19:35 Normal [facility] Covid-19 PCR (CVDTB)on 01-09 SARS-CoV-2 (COVID-19) RNA MANJIT+probe Ql (Unsp spec) Not detected Normal NOT DETECTED [facility] Comment on above: Result Comment: When [...] for this test is supported by the [employer] of Health and Human Service's declaration that [...] used). Performed By: #### A 1C #### [facility] [address] [place] [address] Dr. Ladan Diehl LACTATE/LACTIC ACIDon 2021 Lactate [Moles/Vol] 1.6 mmol/L Normal 0.4-1.9 [facility] Comment on above: Performed By: #### L ACT #### [facility] [address] [place] [address] Dr. Ladan Diehl PROF 14(COMP METB)on 022 Albumin [Mass/Vol] 2.7 g/dL Critically low 3.4-5.0 [facility] Comment on above: Performed By: #### A 1C #### [facility] [address] [place] [address] Dr. Ladan Diehl Albumin/Globulin [Mass ratio] 0.5 {ratio} Normal [facility] Comment on above: Performed By: #### A 1C #### [facility] [address] [place] [address] Dr. Ladan Diehl ALP [Catalytic activity/Vol] 120 U/L Critically high 46-116 [facility] Comment on above: Performed By: #### A 1C #### [facility] [address] [place] [address] Dr. Ladan Diehl ALT [Catalytic activity/Vol] 23 U/L Normal 16-63 [facility] Comment on above: Performed By: #### A 1C #### [facility] [address] [place] [address] Dr. Ladan Diehl Anion gap [Moles/Vol] 10.3 mmol/L Normal [facility] Comment on above: Performed By: #### A 1C #### [facility] [address] [place] [address] Dr. Ladan Diehl AST [Catalytic activity/Vol] 29 U/L Normal 15-37 [facility] Comment on above: Performed By: #### A 1C #### [facility] [address] [place] [address] Dr. Ladan Diehl Bilirubin [Mass/Vol] 1.0 mg/dL Normal 0.2-1.0 [facility] Comment on above: Performed By: #### A 1C #### [facility] [address] [address] [address] Ladan Diehl Calcium [Mass/Vol] 8.8 mg/dL Normal 8.5-10.1 [facility] Comment on above: Performed By: #### A 1C #### [facility] [address] [address] [address] Ladan Diehl Chloride [Moles/Vol] 101 mmol/L Normal 98-107 [facility] Comment on above: Performed By: #### A 1C #### [facility] [address] [address] [address] Ladan Diehl CO2 [Moles/Vol] 30.8 mmol/L Normal 21.0-32.0 [facility] Comment on above: Performed By: #### A 1C #### [facility] [address] [place] [address] Dr. Ladan Diehl Creatinine [Mass/Vol] 1.40 mg/dL Critically high 0.70-1.30 [facility] Comment on above: Performed By: #### A 1C #### [facility] [address] [address] [address] Ladan Diehl EGFR-AF AFGHAN >60 Normal >=60 [facility] Comment on above: Performed By: #### A 1C #### [facility] [address] [place] [address] Dr. Ladan Diehl EGFR-NON AF AFGHAN 51 mL/min/1.73m2 Critically low >=60 [facility] Comment on above: Performed By: #### A 1C #### [facility] [address] [place] [address] Dr. Ladan Diehl Globulin (S) [Mass/Vol] 5.3 g/dL Normal [facility] [place] Comment on above: Performed By: #### A 1C #### [facility] [address] [place] [address] Dr. Ladan Diehl Glucose [Mass/Vol] 125 mg/dL Critically high 74-106 [facility] [place] Comment on above: Performed By: #### A 1C #### [facility] [address] [place] [address] Dr. Ladan Diehl Potassium [Moles/Vol] 4.1 mmol/L Normal 3.5-5.1 [facility] Comment on above: Performed By: #### A 1C #### [facility] [address] [place] [address] Dr. Ladan Diehl Protein [Mass/Vol] 8.0 g/dL Normal 6.4-8.2 [facility] Comment on above: Performed By: #### A 1C #### [facility] [address] [address] [address] Ladan Diehl Sodium [Moles/Vol] 138 mmol/L Normal 136-145 [facility] Comment on above: Performed By: #### A 1C #### [facility] [address] [place] [address] Dr. Ladan Diehl Urea nitrogen [Mass/Vol] 20.0 mg/dL Critically high 7.0-18 .0 [facility] Comment on above: Performed By: #### A 1C #### [facility] [address] [place] [address] Dr. Ladan Diehl Urea nitrogen/Creatinine [Mass ratio] 14.3 mg/mg Normal [facility] Comment on above: Performed By: #### A 1C #### [facility] [address] [place] [address] Dr. Ladan Diehl PROTIMEon 01-23-2022 INR Coag (PPP) [Relative time] 1.02 {INR} Normal [facility] Comment on above: Performed By: #### P T, PTT #### [facility] [address] [place] [address] Dr. Ladan Diehl INR GUIDELINES SEE BELOW Normal [facility] Comment on above: Result Comment: KALI RED INR: 2.0 - 3.0 CONDITIONS NOT LISTED BELOW 2.5 - 3.5 FOR PROSTHETIC HEART VALVE REPLACEMENT 2.5 - 3.5 RECURRENT THROMBOSIS Performed By: #### P T, PTT #### [facility] [address] [place] [address] Dr. Ladan Diehl PT Coag (PPP) [Time] 11.0 s Normal 9.0-11.6 [facility] Comment on above: Performed By: #### P T, PTT #### [facility] [address] [place], [place] [address] Dr. Ladan Diehl PTTon 01-23-2022 aPTT Coag (Bld) [Time] 27.6 s Normal 22.3-36.2 [facility] Comment on above: Performed By: #### P T, PTT #### [facility] [address] [address] [address] Ladan Diehl TROPONIN, HIGH SENSITIVITYon 01-23-2022 HSTROP 10.4 pg/mL Normal 4.0-76.1 [facility] Comment on above: Result Comment: CUT- OFF POINTS HAVE BEEN ESTABLISHED BASED ON THE FOURTH UNIVERSAL DEFINITIONS OF MYOCARDIAL INFARCTION. THE UPPER REFERENCE LIMIT (URL) OF TROPONIN, DEFINED THE 99TH PERCENTILE OF cTnI DISTRIBUTION IN A REFERENCE POPULATION, HAS BEEN CONFIRMED THE DECISION THRESHOLD FOR [place] DIAGNOSIS. Performed By: #### A 1C #### [facility] [address] [place] [address] ABD/PELV W CONon [...] TANNER PEDRAZA Date: 2022-01-18 23:39 Normal [facility] XR CHEST 1 Von 01-19-2022 XR [...] ROSELIA RIVERA Date: 2022-01-18 22:16 Normal [facility] XR KNEE LT 4V or >on [...] JENNIFER CASTILLO Date: 2022-01-18 23:06 Normal [facility] CBC AUTO DIFFon 01-18-2022 BASO # 0.1 103/ul Normal 0.0-0.1 [facility] Comment on above: Performed By: #### C BC #### [facility] [address] [address] [address] Ladan Diehl Basophils/100 WBC (Bld) 0.8 % Normal 0.2-2.0 [facility] [place] Comment on above: Performed By: #### C BC #### [facility] [address] [address] [address] Ladan Diehl EO # 0.4 103/ul Normal 0.0-0.7 [facility] Comment on above: Performed By: #### C BC #### [facility] [address] [place] [address] Dr. Ladan Diehl Eosinophils/100 WBC (Bld) 4.3 % Normal 0.9-7.0 [facility] Comment on above: Performed By: #### C BC #### [facility] [address] [place] [address] Dr. Ladan Diehl Erythrocyte distribution width (RBC) [Ratio] 14.4 % Normal 11.0-15.0 [facility] Comment on above: Performed By: #### C BC #### [facility] [address] [place] [address] Dr. Ladan Diehl Hematocrit (Bld) [Volume fraction] 37.2 % Critically low 42.0-54.0 [facility] Comment on above: Performed By: #### C BC #### [facility] [address] [place] [address] Dr. Ladan Diehl Hemoglobin (Bld) [Mass/Vol] 11.9 g/dL Critically low 14.0-18.0 [facility] Comment on above: Performed By: #### C BC #### [facility] [address] [place] [address] Dr. Ladan Diehl IG # 0.04 10e3/ul Critically high 0.00-0.03 [facility] Comment on above: Performed By: #### C BC #### [facility] [address] [place] [address] Dr. Ladan Diehl IG % 0.5 % Normal 0.0-0.5 [facility] Comment on above: Performed By: #### C BC #### [facility] [address] [place] [address] Dr. Ladan Diehl LYMPH # 2.2 103/ul Normal 1.2-3.8 [facility] Comment on above: Performed By: #### C BC #### [facility] [address] [place] [address] Dr. Ladan Diehl Lymphocytes/100 WBC (Bld) 26.2 % Normal 20.5-60.0 [facility] Comment on above: Performed By: #### C BC #### [facility] [address] [place] [address] Dr. Ladan Diehl MANUAL DIFF REQ NO Normal [facility] Comment on above: Performed By: #### C BC #### [facility] [address] [place] [address] Dr. Ladan Diehl MCH (RBC) [Entitic mass] 30.4 pg Normal 25.9-34.0 [facility] Comment on above: Performed By: #### C BC #### [facility] [address] [place] [address] Dr. Ladan Diehl MCHC (RBC) [Mass/Vol] 32.0 g/dL Normal 29.9-35.2 [facility] Comment on above: Performed By: #### C BC #### [facility] [address] [place] [address] Dr. Ladan Diehl MCV (RBC) [Entitic vol] 94.9 fL Critically high 80.0-94 .0 [facility] Comment on above: Performed By: #### C BC #### [facility] [address] [place] [address] Dr. Ladan Diehl MONO # 0.9 103/ul Critically high 0.3-0.8 [facility] Comment on above: Performed By: #### C BC #### [facility] [address] [place] [address] Dr. Ladan Diehl Monocytes/100 WBC (Bld) 10.3 % Normal 1.7-12.0 [facility] [place] Comment on above: Performed By: #### C BC #### [facility] [address] [place] [address] Dr. Ladan Diehl NEUT # 5.0 103/ul Normal 1.4-6.5 [facility] Comment on above: Performed By: #### C BC #### [facility] [address] [place] [address] Dr. Ladan Diehl Neutrophils/100 WBC (Bld) 57.9 % Normal 43.0-75.0 [facility] Comment on above: Performed By: #### C BC #### [facility] [address] [place] [address] Dr. Ladan Diehl Platelet mean volume (Bld) [Entitic vol] 9.9 fL Normal 9.5-13.5 [facility] Comment on above: Performed By: #### C BC #### [facility] [facility] [address] [place] [address] Dr. Ladan Diehl PLT 180 103/ul Normal 150-450 [facility] Comment on above: Performed By: #### C BC #### [facility] [address] [place] [address] Dr. Ladan Diehl RBC 3.92 106/ul Critically low 4.70-6.10 [facility] Comment on above: Performed By: #### C BC #### [facility] [address] [place] [address] Dr. Ladan Diehl WBC 8.6 103/ul Normal 4.0-11.0 [facility] Comment on above: Performed By: #### C BC #### [facility] [address] [place] [address] Dr. Ladan Diehl PROF 14(COMP METB)on 022 Albumin [Mass/Vol] 2.6 g/dL Critically low 3.4-5.0 [facility] Comment on above: Performed By: #### C MP #### [facility] [address] [place] [address] Dr. Ladan Diehl Albumin/Globulin [Mass ratio] 0.5 {ratio} Normal [facility] Comment on above: Performed By: #### C MP #### [facility] [address] [place] [address] Dr. Ladan Diehl ALP [Catalytic activity/Vol] 184 U/L Critically high 46-116 [facility] Comment on above: Performed By: #### C MP #### [facility] [address] [place] [address] Dr. Ladan Diehl ALT [Catalytic activity/Vol] 24 U/L Normal 16-63 [facility] Comment on above: Performed By: #### C MP #### [facility] [address] [place] [address] Dr. Ladan Diehl Anion gap [Moles/Vol] 10.1 mmol/L Normal [facility] Comment on above: Performed By: #### C MP #### [facility] [address] [place] [address] Dr. Ladan Diehl AST [Catalytic activity/Vol] 22 U/L Normal 15-37 [facility] Comment on above: Performed By: #### C MP #### [facility] [address] [address] [address] Ladan Dielh Bilirubin [Mass/Vol] 0.5 mg/dL Normal 0.2-1.0 [facility] Comment on above: Performed By: #### C MP #### [facility] [address] [address] [address] Ladan Diehl Calcium [Mass/Vol] 8.6 mg/dL Normal 8.5-10.1 [facility] Comment on above: Performed By: #### C MP #### [facility] [address] [place] [address] Dr. Ladan Diehl Chloride [Moles/Vol] 101 mmol/L Normal 98-107 [facility] Comment on above: Performed By: #### C MP #### [facility] [address] [address] [address] Ladan Diehl CO2 [Moles/Vol] 30.9 mmol/L Normal 21.0-32.0 [facility] Comment on above: Performed By: #### C MP #### [facility] [address] [place] [address] Dr. Ladan Diehl Creatinine [Mass/Vol] 1.72 mg/dL Critically high 0.70-1.30 [facility] Comment on above: Performed By: #### C MP #### [facility] [address] [address] [address] Ladan Diehl EGFR-AF AFGHAN 49 mL/min/1.73m2 Critically low >=60 [facility] Comment on above: Performed By: #### C MP #### [facility] [address] [place] [address] Dr. Ladan Diehl EGFR-NON AF AFGHAN 40 mL/min/1.73m2 Critically low >=60 [facility] Comment on above: Performed By: #### C MP #### [facility] [address] [place] [address] Dr. Ladan Diehl Globulin (S) [Mass/Vol] 5.2 g/dL Normal [facility] Comment on above: Performed By: #### C MP #### [facility] [address] [address] [address] Ladan Diehl Glucose [Mass/Vol] 253 mg/dL Critically high 74-106 [facility] Comment on above: Performed By: #### C MP #### [facility] [address] [address] [address] Ladan Diehl Potassium [Moles/Vol] 4.0 mmol/L Normal 3.5-5.1 [facility] Comment on above: Performed By: #### C MP #### [facility] [address] [place] [address] Dr. Ladan Diehl Protein [Mass/Vol] 7.8 g/dL Normal 6.4-8.2 [facility] Comment on above: Performed By: #### C MP #### [facility] [address] [place] [address] Dr. Ladan Diehl Sodium [Moles/Vol] 138 mmol/L Normal 136-145 [facility] Comment on above: Performed By: #### C MP #### [facility] [address] [place] [address] Dr. Ladan Diehl Urea nitrogen [Mass/Vol] 30.0 mg/dL Critically high 7.0-18 .0 [facility] Comment on above: Performed By: #### C MP #### [facility] [address] [place] [address] Dr. Ladan Diehl Urea nitrogen/Creatinine [Mass ratio] 17.4 mg/mg Normal [facility] Comment on above: Performed By: #### C MP #### [facility] [address] [place] [address] Dr. Ladan Diehl Vital Signs Date Time Vital Sign Value Performing Clinician Facility 05-01-2022 06:00-0400 Diastolic blood pressure 58 mm[Hg] [facility] 05-01-2022 06:00-0400 Heart rate 89 /min Et3 [facility] 05-01-2022 06:00-0400 Respiratory rate 20 /[facility] 05-01-2022 06:00-0400 SaO2% (BldA) [Mass fraction] 91 % [facility]3 [facility] Comment on above: 2 L NC at baseline 05-01-2022 06:00-0400 Systolic blood pressure 86 mm[Hg[facility] 04-12-2022 15:01-0400 Body temperature 98.3 [degF] MD Ayden Freeman Work Phone: [facility] 04-12-2022 15:01-0400 Diastolic blood pressure 68 mm[Hg] MD Ayden Freeman Work Phone: [facility] 04-12-2022 15:01-0400 Heart rate 90 /min MD Ayden Freeman Work Phone: [facility] 04-12-2022 15:01-0400 Respiratory rate 20 /min MD Ayden Freeman Work Phone: [facility] 04-12-2022 15:01-0400 SaO2% (BldA) [Mass fraction] 92 % MD Ayden Freeman Work Phone: [facility] 04-12-2022 15:01-0400 Systolic blood pressure 130 mm[Hg] MD Ayden Freeman Work Phone: [facility] 04-12-2022 10:48-0400 Body height 177.8 cm MD Ayden Freeman Work Phone: [facility] 04-12-2022 10:48-0400 Body weight 154.22 kg MD Ayden Freeman Work Phone: [facility] 04-09-2022 12:00-0400 Diastolic blood pressure 81 mm[Hg] MD Ayden Freeman Work Phone: [facility] 04-09-2022 12:00-0400 Heart rate 99 /min MD Ayden Freeman Work Phone: [facility] 04-09-2022 12:00-0400 Inhaled oxygen flow rate 2 L/min MD Ayden Freeman Work Phone: [facility] 04-09-2022 12:00-0400 Respiratory rate 18 /min MD Ayden Freeman Work Phone: [facility] 04-09-2022 12:00-0400 SaO2% (BldA) [Mass fraction] 98 % MD Ayden Freeman Work Phone: [facility] 04-09-2022 12:00-0400 Systolic blood pressure 127 mm[Hg] MD Ayden Freeman Work Phone: [facility] 04-09-2022 05:22-0400 Body weight 162 kg MD Ayden Freeman Work Phone: [facility] 04-08-2022 20:00-0400 Inhaled oxygen concentration 30 % MD Ayden Freeman Work Phone: [facility] 04-08-2022 14:56-0400 Body height 177.8 cm MD Ayden Freeman Work Phone: [facility] 04-08-2022 08:11-0400 Body temperature 98 [degF] MD Ayden Freeman Work Phone: [facility] 03-16-2022 11:59-0400 Diastolic blood pressure 90 mm[Hg] MD Ayden Freeman Work Phone: [facility] 03-16-2022 11:59-0400 Heart rate 95 /min MD Ayden Freeman Work Phone: [facility] 03-16-2022 11:59-0400 Respiratory rate 18 /min MD Ayden Freeman Work Phone: [facility] 03-16-2022 11:59-0400 SaO2% (BldA) [Mass fraction] 95 % MD Ayden Freeman Work Phone: [facility] 03-16-2022 11:59-0400 Systolic blood pressure 147 mm[Hg] MD Ayden Freeman Work Phone: [facility] 03-16-2022 08:07-0400 Body temperature 97.8 [degF] MD Ayden Freeman Work Phone: [facility] 03-16-2022 06:00-0400 Body weight 163.5 kg MD Ayden Freeman Work Phone: [facility] 03-14-2022 17:24-0400 Body height 177.8 cm MD Ayden Freeman Work Phone: [facility] 03-14-2022 16:00-0400 Inhaled oxygen flow rate 1 L/min MD Ayden Freeman Work Phone: [facility] Encounters Encounter Date Encounter Type [...] End: 05-01-2022 ambulatory [facility] T[facility], Treat and Transport Start: 05-01-2022 End: 05-01-2022 Emergency department patient visit [facility] Triage, Treat and Transport Comment on above: Arrived Start: 04-24-2022 End: 04-30-2022 ambulatory UNKNOWN PROVIDER Facility:[facility] Start: 04-12-2022 End: 04-12-2022 Emergency department patient visit Ramesh Byrd Facility:[facility] Start: 04-12-2022 End: 04-12-2022 Emergency department patient visit MD Ayden Freeman Work Phone: [facility]gency [facility] Start: 04-10-2022 End: 04-17-2022 ambulatory UNKNOWN PROVIDER Facility:[facility] Start: 04-02-2022 End: 04-09-2022 Evaluation and management of inpatient MD Ayden Freeman Work Phone: [facility] Start: 03-15-[address] AYDEN FREEMAN Facil ity:H1 Start: 03-14-2022 End: 03-14-2022 Patient encounter procedure JEFF CARLOS [facility] [place] Start: 03-14-2022 End: 03-16-2022 Evaluation and management of inpatient MD Ayden Freeman Work Phone: [facility] Start: 02-15-[address] AYDEN FREEMAN Facil ity:[facility]1 Start: 02-01-2022 End: 02-01-2022 ambulatory HINA DIOP . Facility: Start: 01-24-2022 End: 01-24-[address] CAROL YIP Facility:[facility] Start: 01-18-2022 End: 01-19-[address] MASON CASTRO Facility:[facility]1 Procedures Date Procedure Procedure Detail Performing Clinician Start: 12-19-[address] YADEN FRIEND Comment on above: Performed By: #### P [facility] #### [facility] [address] [place] [address] Dr. Ladan Diehl Start: 04-12-2022 Plain chest [...] 04-12-2022 Plain chest X-ray XR chest 2V* [facility] Start: 04-12-2022 End: 04-12-2022 Emergency department patient visit Departed Emergency [facility] Start: 04-09-2022 [facility] Work Phone: Start: 04-09-2022 [facility] Work Phone: Start: 04-02-2022 End: 04-09-2022 Evaluation and management of inpatient Abrasion of elbow [facility] Start: 04-02-2022 CT angiography of thorax CT angio chest PE protocol [facility] Start: 04-02-2022 Hospital admission [facility] Work Phone: Start: 04-02-2022 X-ray of left knee XR knee LT 2V [facility] Start: 04-02-2022 Plain chest X-ray XR chest 1V portable [facility] Start: 04-02-2022 Plain X-ray of left hip XR hip LT min 2V(w/wo pelvis)* [facility] Start: 04-02-2022 Plain X-ray of left elbow XR elbow LT min 3V* [facility] Start: 03-16-2022 [facility] Work Phone: Start: 03-14-2022 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 E - MEDICARE [facility] SNP [id number] 2021-Present [phone] [address] [address] [place] [address] Medicare [id number] 2021 Private Health Insurance [id number] 2017 Unknown [id number] 1959 Medicaid [id number] 1959 Medicare [id number] 1957 Unknown [id number] 2.16.840.1.062454.3.579.2. 732 1957 Unknown [id number] 2.16.840.1.597155.3.579.2. 732 1957 Unknown [id number] 2.16.840.1.211751.3.579.2. 732 1957 Unknown [id number] 2.16.840.1.276431.3.579.2. 732 1957 Unknown [id number] 2.16.840.1.554161.3.579.2. 593 1957 Unknown [id number] 2.16.840.1.204845.3.579.2. 593 1957 Unknown [id number] 2.16.840.1.354811.3.579.2. 593 1957 Unknown [id number] 2.16.840.1.380215.3.579.2. 593 1957 Unknown [id number] 2.16.840.1.406952.3.579.2. 593 1957 Unknown [id number] 2.16.840.1.484377.3.579.2. 593 1957 Unknown [id number] 2.16.840.1.826174.3.579.2. 593 1957 Unknown [id number] 2.16.840.1.960015.3.579.2. 593 1957 Unknown [id number] 2.16.840.1.783441.3.579.2. 593 1957 Unknown [id number] 2.16.840.1.717948.3.579.2. 1259 Medicare Medicare [id number] Medicare Medicare Psych-IP Part A [id number] Medicare [place] [facility] PFFS [id number] Medicare [employer] [facility] [id number] Unknown [facility] [id number] Unknown [id number] 2.16.840.1.707970.3.579.2. 531 Social History Date Type Detail Facility Tobacco smoking status No Smoking Status Entered [facility] Sex Assigned At Male [facility] Start: 04-02-2022 End: 04-12-2022 Tobacco smoking status WIIS Never smoked tobacco (finding) [facility] Start: 1955 Sex Assigned At Male [facility] Tobacco smoking status [facility] Tobacco smoking consumption unknown [facility] Start: 1955 Sex Assigned At Not on file 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 [facility] Work Phone: 03-16-2022 Functional status Patient at Baseline [facility] Work Phone: Mental Status Date Assessment Result Facility 04-09-2022 Cognitive function Cognitive Sta tus Patient at Baseline [facility] Work Phone: 03-16-2022 Cognitive function Cognitive Sta tus Patient at Baseline [facility] Work Phone: Clinical Notes 2021 to 05-03-2022 Peter Molina DO - 05/03/2022 9:41 AM EDT Note Date & Type Note Facility 05-03-2022 History of Presen t illness Narrative Images from the original note were not included. EMERGENCY TRIAGE, TREAT AND TRANSPORT (ET3) DOCUMENTATION OF TELEHEALTH VISIT Date / Time: 05/01/2022599 Name: Evelin Patterson : 1955 SSN: [id number] EMS Agency: [facility] [x] Verbal consent obtained [] [...] Peter Molina DO documented in this encounter [facility] 04-08-2022 Progress note Note Date/Time April 08, 2022 1:38pm [facility] [address] [place] [address] Hospitalist Progress Note Signed Patient: Evelin Patterson MR#: [id number] : 1955 Acct:[id number] Age/Sex: 66 / M Adm Date: 2 Loc: 3T Room: [address] [place] [address] Type: ADM INOo Attending Dr: Lupe Hernandez [...] Hypothyroidism: Plan Patient currently awaiting placement to [facility] facility. Remains in normal sinus rhythm. He [...] signed by Lupe Hernandez MD> 04/08/22 1338 [facility] Work Phone: 1(788) 649-720608-28-2022 Discharge summary Author Luke Moran [facility] April 07, 2022 4:16pm Note Date/Time April 05, 2022 10 :05am [facility] [address] [place], [place] [address] Discharge Summary Signed with Addenda Patient: Evelin Patterson MR#: [id number] : 1955 Acct:[id number] Age/Sex: 66 / M Adm Date: 2 Loc: Room: [address] [place] [address]: Luke Moran MD Copies to: [...] discharged home in stable condition to a [facility] facility. 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 Sleep Lab [Outside] ([facility] Sleep Lab or Central Scheduling will call you to arrange date/time for sleep study. ) Documented By: Luke Moran MD 04/07/22 9050 Signed By: <Electronically signed by Luke Moran MD> 04/07/22 1610 [facility] Work Phone: 1(337) 307-968108-27-2022 Progress note Author Luke Moran [facility] April 06, 2022 2:50pm Note Date/Time April 06, 2022 2: 50pm [facility] [address] [place] [address] Hospitalist Progress Note Signed Patient: Evelin Patterson MR#: [id number] : 1955 Acct:[id number] Age/Sex: 66 / M Adm Date: 2 Loc: 3T Room: [address] [place] [address] Type: ADM INOo Attending Dr: Luke Moran [...] signed by Luke Moran MD> 04/06/22 1450 [facility] Work Phone: 1(301) 264-682108-25-2022 Progress note Author Luke Moran [facility] April 04, 2022 4:25pm Note Date/Time April 04, 2022 4: 25pm [facility] [address] [place] [address] Hospitalist Progress Note Signed Patient: Evelin Patterson MR#: [id number] : 1955 Acct:[id number] Age/Sex: 66 / M Adm Date: 2 Loc: 3T Room: [address] [place] [address] Type: ADM INOo Attending Dr: Luke Moran [...] <Electronically signed by Luke Moran MD> 04/04/228 [facility] Work Phone: 1(745) 801-390908-24-2022 Progress note Author Luke Moran [facility] April 03, 2022 2:05pm Note Date/Time April 03, 2022 2: 05pm [facility] [address] [place] [address] Hospitalist Progress Note Signed Patient: Evelin Patterson MR#: [id number] : 1955 Acct:[id number] Age/Sex: 66 / M Adm Date: 2 Loc: Room: [address] [place] [address] Type: ADM INOo Attending Dr: Luke Moran [...] Flush Documented By: Luke Moran MD 04/03/22 7652 Signed By: <Electronically signed by Luke Moran MD> 04/03/22 2787 [facility] Work Phone: 1([phone]) 810-341208-23-2022 History and physical note Author Luke Moran [facility] April 02, 2022 7:48pm Note Date/Time April 02, 2022 7: 45pm [facility] [address] [place] [address] Hospitalist H&P Signed Patient: Evelin Patterson MR#: [id number] : 1955 Acct:[id number] Age/Sex: 66 / M Adm Date: 2 Loc: ER Room: Type: [facility] ER Attending Dr: Copies to: MD [...] History Comments: [facility] Medications and Allergies Allergies metformin Adverse [...] % (Auto) 8.7 % (.) 04/02/22 17:51 Dickenson % (Auto) 12.2 % (.) 04/02/22 17:51 Eos % (Auto) 2.4 % (.) 04/02/22 17:51 Baso % (Auto) 0.6 % (.) 04/02/22 17:51 Neut # (Auto) 6.4 x10E3/uL (1.8-7.7) 04/02/22 17:51 Lymph # (Auto) 0.7 x10E3/uL (1.00-4.8) L 04/02/22 17:51 Dickenson # (Auto) 1.0 x10E3/uL (0.0-0.8) H 04/02/22 [...] <Electronically signed by Luke Moran MD> 04/02/221947 [facility] Work Phone: 1([phone]) 819-571208-06-2022 Discharge summary Author Xin Phan [facility] March 16, 2022 9:37am Note Date/Time March 16, 2022 9:3 7am [facility] [address] [place] [address] Discharge Summary Signed Patient: Evelin Patterson MR#: [id number] : 1955 Acct:[id number] Age/Sex: 66 / M Adm Date: 2 Loc: Room: [address] [place] [address]: Xin Phan MD Copies to: [...] anxiety and depression who was transferred from [facility] for acute kidney injury.? Patient presented with generalized weakness and disorientation at [facility]. He was noted to have blood sugars [...] headache or dizziness.? No fevers Paperwork from [facility] reviewed, chest x-ray with no acute cardiopulmonary process.? Sodium 129.? Potassium 3.3.? Creatinine 2.52.? WBC 6.8.? Hemoglobin 12.5.? Glucose 4.34.? Patient will be admitted by the hospitalist team for further evaluation and management. Patient was positive for COVID, patient was alert oriented x3 at [facility], patient states that he has [...] untreated sleep apnea Instructions: Blood Glucose Monitoring, [facility] COVID-19 Discharge Instructions Prescriptions: New Levemir FlexTouch [...] signed by Xin Phan MD> 03/16/22 0937 [facility] Work Phone: 1(874) 445-409308-05-2022 Progress [facility] March 15, 2022 3:43pm Note Date/Time March 15, 2022 3:3 7pm [facility] [address] [place] [address] Nephrology Progress Note Signed Patient: Evelin Patterson MR#: [id number] : 1955 Acct:[id number] Age/Sex: 66 / M Adm Date: 2 Loc: Room: [address] [place] [address] Type: ADM IN Attending Dr: Xin Phan MD Copies to: ~ Date of Service: 03/15/2022 Subjective Subjective Narrative: This is 66-year-old male patient with a past medical history of morbid obesity, endocarditis, paroxysmal A. fib, diabetes type 2, anxiety and depression and chronic kidney disease stage III. Patient presented to [facility] with feeling weak and disoriented for 2 weeks which has gotten worse. Patient has been having cough with decreased appetite and loss of taste for a week. Lab at [facility] shows acute kidney injury with creatinine up to 4.3 mg/dL along with hyperglycemia with initial blood glucose level more than 400. Patient's blood pressure was in the 80s at [facility]. Patient was given IV fluid and transferred [...] 500 Mg Tablet) 500 mg PO DAILY PENDING SALE TO [facility] Stop: 03/14/23 08:59 Last Admin: 03/15/22 08:34 Dose: 500 mg Dexamethasone 2 mg/ (Dexamethasone 4 mg) 6 mg PO DAILY PENDING SALE TO [facility] Stop: 03/22/23 08:59 Last Admin: 03/15/22 [...] 5,000 Unit/Ml Vial) 5,000 unit SUBCUT Q12HR PENDING SALE TO [facility] Stop: 03/14/23 08:59 Last Admin: 03/15/22 08:34 Dose: 5,000 unit Sodium Chloride (0.9% Sodium Chloride 1,000 Ml) 1,000 mls @ 100 mls/hr IV .[id number] Stop: 03/14/23 01:59 Last Admin: 03/15/22 06:46 Dose: 100 mls/hr Insulin Aspart (Insulin Aspart 300 Units/3 Ml Insuln.Pen) 0 units SUBCUT TID.WM.HS PENDING SALE TO [facility]; Protocol Stop: 03/14/23 07:59 Last Admin: 03/15/22 12:06 Dose: 9 units Insulin Detemir (Insulin Detemir 300 Units/3 Ml Insuln.Pen) 40 units SUBCUT DAILY.WITH.BKFAST PENDING SALE TO [facility] Stop: 03/16/23 07:59 Zinc Sulfate (Zinc Sulfate 220 Mg Capsule) 220 mg PO DAILY PENDING SALE TO [facility] Stop: 03/14/23 08:59 Last Admin: 03/15/22 [...] question Documented By: Sarah Osuna MD 03/15/22 0550 Signed By: <Electronically signed by Sarah Osuna MD> 03/15/22 1540 [facility] Work Phone: 1(525) 288-760608-05-2022 Progress note Author Xin Phan [facility] March 15, 2022 12:44pm Note Date/Time March 15, 2022 12: 44pm [facility] [address] [place] [address] Hospitalist Progress Note Signed Patient: Evelin Patterson MR#: [id number] : 1955 Acct:[id number] Age/Sex: 66 / M Adm Date: 2 Loc: Room: [address] [place] [address] Type: ADM IN Attending Dr: Xin Phan MD Copies to: ~ Date of Service: 03/15/2022 Subjective Subjective Narrative: Patient is a 66-year-old male, with a PMHx of Morbid obesity, endocarditis in August of this year, atrial fibrillation, type 2 diabetes, hypertension, liver cirrhosis, anxiety and depression who was transferred from [facility] for acute kidney injury. Patient presented with generalized weakness and disorientation at [facility]. He was noted to have blood sugars [...] secondary to poor oral intake. Presented at [facility] with low blood pressures in the 80s. ?Creatinine at [facility] 4.34. Baseline creatinine ~1.4 - Nephrology has [...] noncompliance to diabetic diet ?Blood sugar at [facility] was in the 400s ? Will increase [...] <Electronically signed by Xin Phan MD> 03/15/22 7655 [facility] Work Phone: 1(790) 768-584908-04-2022 Progress note Author Renato Looney [facility] March 14, 2022 2:14pm Note Date/Time March 14, 2022 2:1 4pm [facility] [address] [place] [address] Progress Note Signed Patient: Evelin Patterson MR#: [id number] : 1955 Acct:[id number] Age/Sex: 66 / M Adm Date: 2 Loc: Room: [address] [place] [address] Type: ADM IN Attending Dr: Renato Looney MD Copies to: ~ Date of Service: 03/14/2022 Progress Narrative Note PROGRESS NOTE Progress Note: Patient seen and evaluated by rental manager early this morning and also by myself. Briefly, patient is a 66-year-old male past medical history significant for obesity, atrial fibrillation, hypertension, diabetes, liver cirrhosis, mood disorder and recent endocarditis infection who presented to outlying facility due to generalized weakness found to have COVID-19 and acute kidney injury and was transferred to [facility] for further evaluation and management. 1. [...] signed by Renato Looney MD> 03/14/22 1414 [facility] Work Phone: [phone]) 222-133708-04-2022 Consult note Author Sarah Osuna [facility] March 14, 2022 12:30pm Note Date/Time March 14, 2022 12: 30pm [facility] [address] [place] [address] Nephrology Consult Note Signed Patient: Evelin Patterson MR#: [id number] : 1955 Acct:[id number] Age/Sex: 66 / M Adm Date: 2 Loc: Room: [address] [place] [address] Type: ADM IN Attending Dr: Renato Looney [...] kidney disease stage III. Patient presented to [facility] with feeling weak and disoriented for 2 weeks which has gotten worse. Patient has been having cough with decreased appetite and loss of taste for a week. Lab at [facility] shows acute kidney injury with creatinine up to 4.3 mg/dL along with hyperglycemia with initial blood glucose level more than 400. Patient's blood pressure was in the 80s at [facility]. Patient was given IV fluid and transferred [...] History Comments: Lives in [facility] in [facility] Medications & Allergies Allergies metformin Adverse [...] 500 Mg Tablet) 500 mg PO DAILY PENDING SALE TO [facility] Stop: 03/14/23 08:59 Last Admin: 03/14/22 08:34 Dose: 500 mg Dexamethasone 2 mg/ (Dexamethasone 4 mg) 6 mg PO DAILY PENDING SALE TO [facility] Stop: 03/22/23 08:59 Last Admin: 03/14/22 [...] 5,000 Unit/Ml Vial) 5,000 unit SUBCUT Q12HR PENDING SALE TO [facility] Stop: 03/14/23 08:59 Last Admin: 03/14/22 08:39 Dose: 5,000 unit Sodium Chloride (0.9% Sodium Chloride 1,000 Ml) 1,000 mls @ 100 mls/hr IV .[id number] Stop: 03/14/23 01:59 Last Admin: 03/14/22 03:26 Dose: 100 mls/hr Insulin Aspart (Insulin Aspart 300 Units/3 Ml Insuln.Pen) 0 units SUBCUT TID.WM.HS PENDING SALE TO [facility]; Protocol Stop: 03/14/23 07:59 Last Admin: 03/14/22 12:06 Dose: Not Given Insulin Detemir (Insulin Detemir 300 Units/3 Ml Insuln.Pen) 35 units SUBCUT DAILY.WITH.BKFAST PENDING SALE TO [facility] Stop: 03/14/23 07:59 Last Admin: 03/14/22 08:34 Dose: 35 units Zinc Sulfate (Zinc Sulfate 220 Mg Capsule) 220 mg PO DAILY PENDING SALE TO [facility] Stop: 03/14/23 08:59 Last Admin: 03/14/22 [...] Michael Tinajero M.D.03/14/2022 8:24 AM Dictation Location: [place] [address] Any impression(s) listed above is documentation that [...] <Electronically signed by Sarah Osuna MD> 03/14/22 3177 [facility] Work Phone: [phone]) 173-507308-04-2022 History and physical note Author Mary Jane Riley [facility] March 14, 2022 6:40am Note Date/Time March 14, 2022 2:0 2am [facility] [address] [place] [address] Hospitalist H&P Signed Patient: Evelin Patterson MR#: [id number] : 1955 Acct:[id number] Age/Sex: 66 / M Adm Date: 2 Loc: Room: [address] [place] [address] Type: ADM IN Attending Dr: Mary Jane Hanna MD Copies to: MD Leah Marin APRN Marc Naderer, MD~ HPI DATE OF EXAMINATION: 03/14/22 CHIEF COMPLAINT: FRANC HISTORY OF PRESENT ILLNESS: Patient is a 66-year-old male, with a PMHx of Morbid obesity, endocarditis in August of this year, atrial fibrillation, type 2 diabetes, hypertension, liver cirrhosis, anxiety and depression who was transferred from [facility] for acute kidney injury. Patient presented with generalized weakness and disorientation at [facility]. He was noted to have blood sugars [...] headache or dizziness. No fevers Paperwork from [facility] reviewed, chest x-ray with no acute cardiopulmonary process. Sodium 129. Potassium 3.3. Creatinine 2.52. WBC 6.8. Hemoglobin 12.5. Glucose 4.34. Patient will be admitted by the hospitalist team for further evaluation and management. Review of Systems Review of Systems Review of systems: 10 point review of systems obtained, negative unless noted in the HPI or below [facility] Medical History Abdominal mass Anxiety Arthritis Back pain Cirrhosis Colonoscopy planned Deviated nasal septum Diabetes mellitus, type 2 Eczema History of left heart catheterization Pneumonia Surgical History History of cholecystectomy History of hydrocelectomy History of lithotripsy History of nasal surgery Family History Mother Cancer Social History Smoking Status: Never smoker Substance Use Type: None Social History Comments: Lives in [facility] in [facility] Medications and Allergies Allergies metformin Adverse [...] secondary to poor oral intake. Presented at [facility] with low blood pressures in the 80s. ?Creatinine at [facility] 4.34. Baseline creatinine ~1.4 ?Urine sodium, creatinine, urea pending ? Urine output monitoring ? Start IV fluids ? Hold home lisinopril and renally adjust medications ?Consider renal ultrasound if no improvement ? Nephrology consult ?Monitor BMP COVID-19 positive -unvaccinated. ? Presented with productive cough, hypoxia, loss of taste and generalized weakness ? Afebrile, no leukocytosis ? Chest x-ray from [facility] did not show any acute cardiopulmonary disease, [...] noncompliance to diabetic diet ?Blood sugar at [facility] was in the 400s ?Basal insulin 35 [...] plan of care and confirmed the resident's/internal salesperson/medical student's dictation/written note. Patient is a 66-year-old [...] Jane Hanna MD> 03/14/22 0640 [facility] Work Phone: [phone]) 105-131304-19-2022 Progress note Author Lupe Hernandez [facility] April 09, 2022 3:32pm Note Date/Time April 09, 2022 1: 08pm [facility] [address] [place] [address] Hospitalist Progress Note Signed with Muna Patient: Evelin Patterson MR#: [id number] : 1955 Acct:[id number] Age/Sex: 66 / M Adm Date: 2 Loc: 3T Room: 6A9050-9 Type: DIS INOo Attending Dr: Lupe Hernandez MD Copies to: ~ ADDENDUM1 Patient was personally seen by me on the day of encounter, reviewed his history and performed long elements of exam and formulated the plan of care and confirmedthe residents note below. Unfortunately patient has been denied by insurance for [facility] facility after peer to peer. He will [...] to thrive, paroxysmal A. fib, CKD 3, igc-ekxitvu-cawhamksy diabetes, CHF is being monitored on the floor while a jpxl-rg-jzjp was had with regards to the patient's discharge to a [facility] facility. Insurance company has denied this coverage [...] agreed the patient would do well at [facility] facility. Documented By: Allen Perez DO, RES 2 1302 Signed By: <Electronically signed by DO TAMMIE Perez> 04/09/22 1308 <Electronically signed by Lupe Hernandez MD> 04/09/22 1531 [facility] Work Phone: Discharge summary Author Luke Moran [facility] April 07, 2022 4:16pm Note Date/Time April 05, 2022 10 :05am [facility] [address] [place] [id number] Discharge Summary Signed with Muna Patient: Evelin Patterson MR#: [id number] : 1955 Acct:[id number] Age/Sex: 66 / M Adm Date: 2 Loc: Room: [address] [place] [address]: Luke Moran MD Copies to: [...] discharged home in stable condition to a [facility] facility. 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 [Outside] ([facility] or Central Scheduling will call you to arrange date/time for sleep study. ) Documented By: Luke Moran MD 04/07/22 0959 Signed By: <Electronically signed by Luke Moran MD> 04/07/22 1610 [facility] Work Phone: Evaluation + Plan note No data available for this section [facility] [place] Evaluation note* Diagnosis Onset Date Resolution Status [...] Unable to care for self acut e [facility] Work Phone: Evaluation note* Diagnosis Hypotension, unspecified hypotension type- Primary Fall, initial encounter Refusal of treatment Surgical or other procedure not carried out because of patient's decision documented in this encounter [facility] information available[facility] Work Phone: Hospital Discharge instructions No data available for this section [facility] Hospital Discharge instructionsAmbulatory Orders* Initiate Home Health Time Frame: 04/09/22, Location: Determined By Patient Additional Instructions Please wear home oxygen at 2l at all times. HOME HEALTH TO MANAGE: Nursing/PT/OT/Aide/Firer Locomotive Crane to eval and treat Monitor VS per protocol Maintain home oxygen at 2l continuous *Oxygen therapy is new, educate patient on Monitor Respiratory assessment Assist with medication management and provide medication education Assist with glucose control Skin care TID: *Theraworx protect to bilateral groin and abdominal fold redness. *Educate patient on Provide education on high risk fall precautions [facility] Work Phone: Hospital Discharge instructions Additional Instructions If your symptoms return/worsen or you develop any further concerns or symptoms please see your doctor or return to the emergency department immediately.[facility] Work Phone: Progress note No data available for this section [facility] Progrjln note Author Sarah Osuna [facility] March 16, 2022 12:40pm Note Date/Time March 16, 2022 12: 36pm [facility] [address] [place] [address] Nephrology Progress Note Signed Patient: Evelin Patterson MR#: [id number] : 1955 Acct:[id number] Age/Sex: 66 / M Adm Date: 2 Loc: Room: [address] [place] [address] Type: ADM IN Attending Dr: Xin Phan MD Copies to: ~ Date of Service: 03/16/2022 Subjective Subjective Narrative: This is 66-year-old male patient with a past medical history of morbid obesity, endocarditis, paroxysmal A. fib, diabetes type 2, anxiety and depression and chronic kidney disease stage III. Patient presented to [facility] with feeling weak and disoriented for 2 weeks which has gotten worse. Patient has been having cough with decreased appetite and loss of taste for a week. Lab at [facility] shows acute kidney injury with creatinine up to 4.3 mg/dL along with hyperglycemia with initial blood glucose level more than 400. Patient's blood pressure was in the 80s at [facility]. Patient was given IV fluid and transferred [...] 5 Mg Tablet) 5 mg PO DAILY PENDING SALE TO [facility] Stop: 03/15/23 15:59 Last Admin: 03/16/22 08:08 Dose: 5 mg Ascorbic Acid (Ascorbic Acid 500 Mg Tablet) 500 mg PO DAILY PENDING SALE TO [facility] Stop: 03/14/23 08:59 Last Admin: 03/16/22 08:08 Dose: 500 mg Dexamethasone 2 mg/ (Dexamethasone 4 mg) 6 mg PO DAILY PENDING SALE TO [facility] Stop: 03/22/23 08:59 Last Admin: 03/16/22 08:08 [...] 5,000 Unit/Ml Vial) 5,000 unit SUBCUT Q12HR PENDING SALE TO [facility] Stop: 03/14/23 08:59 Last Admin: 03/16/22 08:09 Dose: Not Given Insulin Aspart (Insulin Aspart 300 Units/3 Ml Insuln.Pen) 0 units SUBCUT TID..[facility]; Protocol Stop: 03/14/23 07:59 Last Admin: 03/16/22 [...] signed by Sarah Osuna MD> 03/16/22 1240 [facility] Work Phone: Progress note Author Luke Moran [facility] April 03, 2022 2:05pm Note Date/Time April 03, 2022 2: 05pm [facility] [address] [place] [address] Hospitalist Progress Note Signed Patient: Evelin Patterson MR#: [id number] : 1955 Acct:[id number] Age/Sex: 66 / M Adm Date: 2 Loc: Room: [address] [place] [address] Type: ADM INOo Attending Dr: Luke Moran [...] signed by Luke Moran MD> 04/03/22 1406 [facility] Work Phone: Progress note Author Luke Moran [facility] April 04, 2022 4:25pm Note Date/Time April 04, 2022 4: 25pm [facility] [address] [place] [address] Hospitalist Progress Note Signed Patient: Evelin Patterson MR#: [id number] : 1955 Acct:[id number] Age/Sex: 66 / M Adm Date: 2 Loc: Room: [address] [place] [address] Type: ADM INOo Attending Dr: Luke Moran [...] <Electronically signed by Luke Moran MD> 04/04/221624 [facility] Work Phone: Progress note Author Luke Moran [facility] April 06, 2022 2:50pm Note Date/Time April 06, 2022 2: 50pm [facility] [address] [place] [address] Hospitalist Progress Note Signed Patient: Evelin Patterson MR#: [id number] : 1955 Acct:[id number] Age/Sex: 66 / M Adm Date: 2 Loc: 3T Room: [address] [place] [address] Type: ADM INOo Attending Dr: Luke Moran [...] signed by Luke Moran MD> 04/06/22 1450 [facility] Work Phone: Progress note Author Lupe Hernandez [facility] April 08, 2022 1:38pm Note Date/Time April 08, 2022 1: 38pm [facility] [address] [place] [address] Hospitalist Progress Note Signed Patient: Evelin Patterson MR#: [id number] : 1955 Acct:[id number] Age/Sex: 66 / M Adm Date: 2 Loc: Room: [address] [place] [address] Type: ADM INOo Attending Dr: Lupe Hernandez [...] Hypothyroidism: Plan Patient currently awaiting placement to [facility] facility. Remains in normal sinus rhythm. He [...] signed by Lupe Hernandez MD> 04/08/22 1338 [facility] Work Phone: Chief Complaint and Reason [...] and content) DATE CREATED AUTHOR 05/08/2022 [employer] DATE CREATED AUTHOR AUTHOR'S ORGANIZ ATION 12/23/2022 [facility] DATE CREATED AUTHOR AUTHOR'S ORGANIZ ATION 04/12/2023 [facility] DATE CREATED AUTHOR AUTHOR'S ORGANIZ ATION 09/17/2023 [facility] DATE CREATED AUTHOR AUTHOR'S ORGANIZ ATION 06/15/2024 [facility] Reason for Visit (unrecogniz ed section and [...] BE BASED ON THE PRIMARY CLINICAL RECORDS. [facility]. provides no warranty or guarantee of the accuracy or completeness of information in this document.
--- NOTE | 2024-10-09 09:41 | CT_ITS ---
The [address] [address] Patient Name: EVELIN CAMACHO MRN: [id number] date: 1955 Sex: M Assigned Patient Location: ER Current Patient Location: ER Accession/Order Number: [id number] Exam Date: 10/09/2024 11:19 Report Date: 10/09/2024 11:27 At the request of: DAQUAN ACKERMAN Procedure: CT abdomen pelvis w con CT abdomen pelvis w con 10/09/2024 11:18 AM SIGNS AND SYMPTOMS: Epigastric pain, abdominal cramping and diarrhea TECHNIQUE: Multidetector ct axial images of the abdomen and pelvis were obtained without IV contrast. Multiplanar reformats were performed and reviewed to further define anatomy and possible pathology. CT was performed with one or more of the following dose reduction techniques: Automated exposure control, adjustment of the mA and/or kV according to patient size, or use of iterative reconstruction technique. COMPARISON: 04/02/2024 FINDINGS: Lower Chest: There is mild scarring or atelectasis in the lung bases. ABDOMEN: Liver: The liver has lobulated margins suggesting hepatic cirrhosis. This is similar to the prior exam. Bile Ducts: Normal caliber. Gallbladder: Previously removed Pancreas: Within normal limits. Spleen: Within normal limits. Adrenals: Within normal limits. Kidneys: There are simple cysts in the renal cortices requiring no further follow-up. There is renal cortical atrophy bilaterally which is unchanged. Pelvis: Reproductive Organs: No pelvic masses. Ureters: Within normal limits. Bladder: Within normal limits. Bowel: Normal caliber. There is a normal appendix in the right lower quadrant. Mesenteric Lymph Nodes: No enlarged mesenteric lymph nodes. Peritoneum: No ascites or free air, no fluid collection. Vessels: Atherosclerotic changes are noted in the abdominal aorta and its branches. 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 This is similar to the prior exam and measures 2.2 cm in greatest dimension. Retroperitoneum: Within normal limits. Abdominal Wall: Within normal limits. Bones: There is a remote compression fracture of the T10 vertebral body which is unchanged. Findings suggest avascular sclerosis of the right femoral head. Mild degenerative changes are noted in the sacroiliac joints. CT/CT abdomen pelvis w con IMPRESSION: No acute intra-abdominal pathology. Findings are consistent with hepatic cirrhosis. There is evidence of prior cholecystectomy. Additional chronic findings are noted as above. Impression dictated by: Bon Doherty M.D.10/09/2024 11:27 AM Dictation Location: [place] [address] Electronically authenticated by: [id number] Y Date: 10/09/2024 11:27
--- NOTE | 2024-10-09 09:43 | ED.ABDPAIN1 ---
HPI - Abdominal Pain General Chief Complaint: Abdominal Pain Stated Complaint: ABDOMINAL PAIN, LOWER EXTREMITY PAIN Time Seen by Provider: 10/09/24 09:20 Source: patient Mode of arrival: Wheelchair Limitations: no limitations History of Present Illness HPI narrative: cc = abdominal pain Patient presents with anterior midline abdominal pain that began a few days ago. He admits to some loose stool. No nausea or vomiting today although has had some nausea in the past few days. He saw his primary care provider, Maria Dolores Chiu, in the office yesterday. She sent him for a variety of blood and urine tests, which he got at 9 AM this morning. 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 He does not know when that is to be scheduled. She did not prescribe anything for him for his symptoms. At this time, he complains of nausea and rates his abdominal pain 5 out of 10. He localizes it to the umbilicus. He reports a positive prior history of IBS and diverticulitis although it has been a long time since it flared up Related Data Home Medications ?Medication ?Instructions ?Recorded ?Confirmed atorvastatin 40 mg tablet 40 mg PO BEDTIME 07/16/23 10/09/24 esomeprazole magnesium 40 mg 40 mg PO Q24H 07/16/23 10/09/24 capsule,delayed release gabapentin 100 mg capsule 200 mg PO BEDTIME 07/16/23 10/09/24 insulin glargine 100 unit/mL (3 40 unit subcut DAILY 07/16/23 10/09/24 mL) subcutaneous pen (Lantus Solostar U-100 Insulin) isosorbide mononitrate 30 mg 30 mg PO DAILY 07/16/23 10/09/24 tablet,extended release 24 hr levothyroxine 200 mcg tablet 200 mcg PO DAILY 07/16/23 10/09/24 liothyronine 5 mcg tablet 5 mcg PO DAILY 07/16/23 10/09/24 ropinirole 0.5 mg tablet 0.5 mg PO BEDTIME 07/16/23 10/09/24 sertraline 100 mg tablet 100 mg PO DAILY 07/16/23 10/09/24 apixaban 5 mg tablet (Eliquis) 5 mg PO DAILY 04/14/24 10/09/24 diclofenac sodium 75 mg 75 mg PO Q12H PRN pain 04/14/24 10/09/24 tablet,delayed release nystatin 100,000 unit/gram topical 1 applic topical QDAY 04/14/24 10/09/24 cream trazodone 50 mg tablet 50 mg PO BEDTIME PRN insomnia 04/14/24 10/09/24 simvastatin 20 mg tablet 20 mg PO BEDTIME 10/09/24 10/09/24 Previous Rx's ?Medication ?Instructions ?Recorded lisinopril 20 mg tablet 20 mg PO QD #30 tabs 02/23/24 hyoscyamine sulfate 0.125 mg 0.125 mg PO Q6H PRN abdominal pain 10/09/24 sublingual tablet (Levsin/SL) #20 tabs ondansetron 4 mg disintegrating 4 mg PO Q6H PRN nausea and 10/09/24 tablet vomiting #20 tabs Allergies Allergy/AdvReac Type Severity Reaction Status Date / Time metformin AdvReac Severe Flatulence Verified 04/14/24 13:33 prochlorperazine (From AdvReac Severe Anxiety Verified 04/14/24 13:33 Compazine) [facility] Medical History Neuropathy ?G62.9 - Polyneuropathy, unspecified (ICD-10) GERD (gastroesophageal reflux disease) ?K21.9 - Gastro-esophageal reflux disease without esophagitis (ICD-10) UTI (urinary tract infection) ?N39.0 - Urinary tract infection, site not specified (ICD-10) Sepsis ?A41.9 - Sepsis, unspecified organism (ICD-10) Fibromyalgia ?M79.7 - Fibromyalgia (ICD-10) Hyperlipidemia ?E78.5 - Hyperlipidemia, unspecified (ICD-10) Hypothyroid ?E03.9 - Hypothyroidism, unspecified (ICD-10) Depression ?F32.A - Depression, unspecified (ICD-10) Anxiety ?F41.9 - Anxiety disorder, unspecified (ICD-10) Hypertension ?I10 - Essential (primary) hypertension (ICD-10) Diabetes ?E11.9 - Type 2 diabetes mellitus without complications (ICD-10) Surgical History H/O right heart catheterization ?Z98.890 - Other specified postprocedural states (ICD-10) History of lithotripsy ?Z98.890 - Other specified postprocedural states (ICD-10) H/O colonoscopy ?Z98.890 - Other specified postprocedural states (ICD-10) Family History Mother Family history of cancer Social History Within the past year, how often did you have a drink containing alcohol: never Within the past year, how many standard drinks containing alcohol did you have on a typical day: 1 or 2 Within the past year, how often did you have six or more drinks on one occasion: never Total score: 0 Score interpretation: A score less than 4 is consistent with normal alcohol consumption. Smoking status: Never smoker Non-prescribed substance use: denies use Previous occupational history: disability Highest level of school completed/degree received: high school graduate Are you now , , , , never or living with a partner: In a typical week, how many times do you talk on the telephone with family, friends, or neighbors: twice per week How often do you get together with friends or relatives: twice per week How often do you attend yazidi or adventist services: 4 or more times per year Do you belong to any clubs or organizations such as yazidi groups unions, fraternal or athletic groups, or school groups: no Total score: 2 Score interpretation: A score of greater than or equal to 2 indicates the lowest level of social isolation. Little interest or pleasure in doing things: not at all Feeling down, depressed, or hopeless: several days Feel stressed/tense/nervous/anxious/difficulty sleeping: not at all Gender Identity: male Exam Narrative Exam Narrative: Nurses notes and vital signs reviewed and patient is not hypoxic. afebrile General: Well-appearing and in no apparent distress. Skin: Warm, dry, no pallor noted. No rash. Head: Normocephalic, atraumatic. Eye: Pupils are equal, round and EOMI. No scleral icterus. Ears, Nose, Mouth, and Throat: Oral mucosa is moist Cardiovascular: Regular Rate and Rhythm without murmur, gallop or rub. Respiratory: No accessory muscle use or respiratory distress. Lungs are clear to auscultation, no wheezing, rales or rhonchi Back: No CVA tenderness Musculoskeletal: normal ROM GI: Abdomen is soft, non-distended. Normal bowel sounds. No masses appreciated. Umbilical tenderness to palpation. No rebound, guarding, or rigidity noted. Neurological: A&O x4. No cranial nerve dysfunction observed. No truncal ataxia. Moves all extremities. Sensation intact. Psychiatric: Cooperative and interactive. Normal mood and affect. Constitutional Vital Signs, click to edit/add: Last Vital Signs Temp 97.8 F 10/09/24 09:15 Pulse 86 10/09/24 09:15 Resp 18 10/09/24 09:15 BP 161/99 H 10/09/24 09:15 Pulse Ox 97 10/09/24 10:02 O2 Del Method Room Air 10/09/24 10:02 Course Vital Signs Vital signs: Vital Signs Temperature 97.8 F 10/09/24 09:15 Pulse Rate 86 10/09/24 09:15 Respiratory Rate 18 10/09/24 09:15 Blood Pressure 161/99 H 10/09/24 09:15 Pulse Oximetry 97 10/09/24 09:15 Oxygen Delivery Method Room Air 10/09/24 09:15 Temperature 97.8 F 10/09/24 09:15 Pulse Rate 86 10/09/24 09:15 Respiratory Rate 18 10/09/24 09:15 Blood Pressure 161/99 H 10/09/24 09:15 Pulse Oximetry 97 10/09/24 10:02 Oxygen Delivery Method Room Air 10/09/24 10:02 MDM - Abdominal Pain MDM Narrative Medical decision making narrative: I called and spoke with Carmen in the lab. Outpatient testing includes CBC, CMP, lipid panel, TSH including T3 and T4, uric acid as well as UA with micro. Other tests such as PSA and hemoglobin A1c are not going to be relevant for this visit. After examining the patient and talked with him about his symptoms I ordered a CT scan of the abdomen pelvis with IV contrast. He was ordered to receive IV Zofran and oral Levsin for his symptoms. CBC, CMP, uric acid were all normal/negative, with the exception of the patient's creatinine which is slightly elevated at 1.5 -this appears to be chronic. TSH was low but T3 and T4 are normal levels. CT scan of the abdomen pelvis, according to the radiologist, did not find any acute intra-abdominal pathology. He has hepatic cirrhosis, this is known to the patient. Evidence of prior cholecystectomy was noted. Urinalysis also does not identify the cause the patient's symptoms -2-5 red cells, 0-2 white cells, trace bacteria, urine casts. Cultures pending. Patient was informed of results. His symptomatology is consistent with his history of IBS. We talked about this diagnosis and I discharged him home with a prescription for Zofran in case he should experience nausea and Levsin in the case he continues to have any abdominal pain. He will follow-up with his primary care physician and will likely get outpatient GI referral. Lab Data Attestation: I reviewed the patient's lab results. Imaging Data CT scan - abdomen: Radiologist's impression: ITS Impressions Abdomen/Pelvis CT 10/09/24 09:41 IMPRESSION: No acute intra-abdominal pathology. Findings are consistent with hepatic cirrhosis. There is evidence of prior cholecystectomy. Additional chronic findings are noted as above. Impression dictated by: Bon Doherty M.D.10/09/2024 11:27 AM Dictation Location: [facility] Electronically authenticated by: [id number] Y Date: 10/09/2024 11:27 Discharge Plan Discharge Chief Complaint: Abdominal Pain Clinical Impression: Irritable bowel syndrome, Abdominal pain, Microhematuria Patient Disposition: Home, Self-Care Time of Disposition Decision: 12:08 Prescriptions / Home Meds: New hyoscyamine sulfate [Levsin/SL] 0.125 mg tablet, sublingual 0.125 mg PO Q6H PRN (Reason: abdominal pain) Qty: 20 0RF ondansetron 4 mg tablet,disintegrating 4 mg PO Q6H PRN (Reason: nausea and vomiting) Qty: 20 0RF No Action atorvastatin 40 mg tablet 40 mg PO BEDTIME esomeprazole magnesium 40 mg capsule,delayed release(DR/EC) 40 mg PO Q24H gabapentin 100 mg capsule 200 mg PO BEDTIME insulin glargine [Lantus Solostar U-100 Insulin] 100 unit/mL (3 mL) insulin pen 40 unit SUBCUT DAILY isosorbide mononitrate 30 mg tablet extended release 24 hr 30 mg PO DAILY levothyroxine 200 mcg tablet 200 mcg PO DAILY liothyronine 5 mcg tablet 5 mcg PO DAILY sertraline 100 mg tablet 100 mg PO DAILY ropinirole 0.5 mg tablet 0.5 mg PO BEDTIME simvastatin 20 mg tablet 20 mg PO BEDTIME lisinopril 20 mg Tablet 20 mg PO QD Qty: 30 11RF diclofenac sodium 75 mg tablet,delayed release (DR/EC) 75 mg PO Q12H PRN (Reason: pain) trazodone 50 mg tablet 50 mg PO BEDTIME PRN (Reason: insomnia) nystatin 100,000 unit/gram cream 1 applic TOPICAL QDAY Eliquis 5 mg Tablet 5 mg PO DAILY Print Language: [place] Instructions: Irritable Bowel Syndrome (ED), Hematuria (ED), Abdominal Pain (ED) Referrals: KATHIA LAZAR [Primary Care Provider] - 1 week
[2024-10-09] MEDS: HYOSCYAMINE SULFATE 0.125 MG TAB.SUBL SL (09:54)
[2024-10-09] MEDS: ONDANSETRON PF 4 MG/2 ML VIAL IV (09:54)
[2024-10-09 10:02] VITALS: O2SAT 97
[2024-10-09 12:25] VITALS: BP 161/88; PULSE 81; O2SAT 95
== END 2024-10-09 12:25 | disposition home or self-care (01) ==
PROVIDERS: Emergency Provider Emergency Medicine; PCP Nurse Practitioner Family
DX: R10.9 Unspecified abdominal pain (principal); K58.9 Irritable bowel syndrome, unspecified; R31.29 Other microscopic hematuria; R53.83 Other fatigue; K74.60 Unspecified cirrhosis of liver; Z90.49 Acquired absence of other specified parts of digestive tract; Z12.5 Encounter for screening for malignant neoplasm of prostate
CPT/HCPCS: 36415; 74177; 80053; 80061; 81001; 82378; 83036; 83525; 84436; 84443; 84481; 84550; 85025; 86301; 87086; 96374; 99284; G0103; J2405; Q9966

== ENCOUNTER 2024-10-15 11:05 | Outpatient (OUT) | payer MEDICARE, MEDICAID, SELFPAY ==
--- NOTE | 2024-10-15 | XR_ITS ---
The [address] [address] Patient Name: EVELIN CAMACHO MRN: [id number] date: 1955 Sex: M Assigned Patient Location: Current Patient Location: Accession/Order Number: [id number] Exam Date: 10/15/2024 21:53 Report Date: 10/15/2024 22:06 At the request of: CONRAD COOPER MD Procedure: XR lumbar spine bending only Plain film flexion extension view lumbar spine COMPARISON: 03/25/2024 redemonstration of T10 vertebral body compression fracture. HISTORY: History of vertebral compression fracture. History of falls. No hypermobility with flexion extension views. Diffuse osteopenia. Mild multilevel spondylosis extensive multilevel facet degeneration redemonstrated. Progression of T10 anterior wedge compression fracture greater than 50%. No visible retropulsion of fracture fragment into the bony central canal. XR/XR lumbar spine bending only IMPRESSION: No hypermobility. Similar degenerative changes and diffuse osteopenia. Progression of T10 intervertebral compression fracture greater than 50%. Impression dictated by: Michael Tinajero M.D.10/15/2024 10:06 PM Dictation Location: [place] Electronically authenticated by: [id number] Y Date: 10/15/2024 22:06
--- OUTSIDE RECORDS SUMMARY | 2024-10-15 11:18 | XMS_ITS | CCD ---
Author Organization [facility] Inform ion Partnership [facility] Care Team Providers Care Plasma Processor Name Role Phone JEFF CARLOS Primary Care Physician MD Ayden Freeman Primary Care Provider Al MD Mary Jane Campbell Admit Provider MD Syed Osunaiz Other Provider MD Xin Phan Attending Provider DO Jair Gabriel Emergency Provider [phone] MD Luke Moran Admit Provider MD Lupe Hernandez Attending Provider [phone] DO Ramesh Byrd Emergency Provider [phone] PROVIDER, UNKNOWN Admitting Unavailable PROVIDER, UNKNOWN Attending [...] DR AYDEN Haney Consulting Unavailable CHANEL ., JOS EJUAN US Consulting UnavailXIN Tavares [...] sources) metFORMIN; Translations: [metformin] Drug Allergy 2 [facility] (6 sources) Prochlorperazine; Translations: [prochlorperazine] Drug Allergy 2 [facility] (2 sources) Prochlorperazine Drug Allergy [facility] Medications Current Medications Medication Drug [...] PO Q6H 0 April 04, 2022 12:00am [id number] 200 actuat albuterol 0.09 mg/actuat metered dose [...] by mouth four times daily Hydrocodone-Aceta minophen ([place]) 5-325 mg Tablet Discontinued 1 TAB PO [...] 09, 2022 12:27pm Sliding Scale ACHS nystatin [id number] unt/ml oral suspension (10 sources) Polyene Antifungal [...] disease (1 source) Atherosclerotic heart disease of [place] coronary artery without angina pectoris; Translations: [ASHD [place] W/O ANGINA PECTORIS] Onset: 05-20-2022 Chronic [...] Other halfway (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; Translations: [OTH MCC CURRENT DRUG THERAPY] Onset: 12-22-2022 Episodic Other [...] Onset: 01-28-2022 Episodic Other aftercare (1 source) alf (current) use of insulin; 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 It is important that you return our call upon receiving this letter. Also, at the time of your call, please provide us with your current information. Thank you for your prompt attention to this matter. Sincerely, Dr. Javid Haynes MD General Surgery [facility] Provider Letteron 04-09-2024 Provider Letter Provider Letter April 09, 2024 [address] [address] : 1955 Dear Evelin , We have been trying to reach you with no success. It is important that you return our call regarding scheduling a consultation at our office upon receiving this letter. Also, at the time of your call, please provide us with your current information. Thank you for your prompt attention to this matter. Sincerely, [facility] [phone] [facility] Provider Letter Provider Letter April 09, 2024 [address] [address] : 1955 Dear Evelin , We have been trying to reach you with no success. It is important that you return our call regarding your _ upon receiving this letter. Also, at the time of your call, please provide us with your current information. Thank you for your prompt attention to this matter. Sincerely, [facility] [phone] [facility] Provider Letteron 03-15-2024 Provider Letter Provider Letter March 15, 2024 [address] [address] : 1955 Dear Evelin , We have been trying to reach you with no success. It is important that you return our call regarding a referral upon receiving this letter. Also, at the time of your call, please provide us with your current information. Thank you for your prompt attention to this matter. Sincerely, Dr. Javid Haynes MD General Surgery [facility] CBC AUTO DIFFon 12-19-2022 BASO # 0.1 103/ul Normal 0.0-0.1 [facility] Comment on above: Performed By: #### T SH, BMP #### [facility] [address] [place] [address] Dr. Ladan Diehl Basophils/100 WBC (Bld) 1.2 % Normal 0.2-2.0 [facility] Comment on above: Performed By: #### T SH, BMP #### [facility] [address] [place] [address] Dr. Ladan Diehl EO # 0.4 103/ul Normal 0.0-0.7 [facility] Comment on above: Performed By: #### T SH, BMP #### [facility] [address] [place] [address] Dr. Ladan Diehl Eosinophils/100 WBC (Bld) 4.9 % Normal 0.9-7.0 [facility] Comment on above: Performed By: #### T SH, BMP #### [facility] [address] [place] [address] Dr. Ladan Diehl Erythrocyte distribution width (RBC) [Ratio] 14.8 % Normal 11.0-15.0 [facility] Comment on above: Performed By: #### T SH, BMP #### [facility] [address] [place] [address] Dr. Ladan Diehl Hematocrit (Bld) [Volume fraction] 36.7 % Critically low 42.0-54.0 [facility] Comment on above: Performed By: #### T SH, BMP #### [facility] [address] [place] [address] Dr. Ladan Diehl Hemoglobin (Bld) [Mass/Vol] 12.0 g/dL Critically low 14.0-18.0 [facility] Comment on above: Performed By: #### T SH, BMP #### [facility] [address] [place] [address] Dr. Ladan Diehl IG # 0.01 10e3/ul Normal 0.00-0.03 [facility] Comment on above: Performed By: #### T SH, BMP #### [facility] [address] [place] [address] Dr. Ladan Diehl IG % 0.1 % Normal 0.0-0.5 [facility] Comment on above: Performed By: #### T SH, BMP #### [facility] [address] [place] [address] Dr. Ladan Diehl LYMPH # 2.0 103/ul Normal 1.2-3.8 [facility] Comment on above: Performed By: #### T SH, BMP #### [facility] [address] [place] [address] Dr. Ladan Diehl Lymphocytes/100 WBC (Bld) 27.1 % Normal 20.5-60.0 [facility] Comment on above: Performed By: #### T SH, BMP #### [facility] [address] [place] [address] Dr. Ladan Diehl MANUAL DIFF REQ NO Normal [facility] Comment on above: Performed By: #### T SH, BMP #### [facility] [address] [place] [address] Dr. Ladan Diehl MCH (RBC) [Entitic mass] 29.6 pg Normal 25.9-34.0 [facility] Comment on above: Performed By: #### T SH, BMP #### [facility] [address] [place] [address] Dr. Ladan Diehl MCHC (RBC) [Mass/Vol] 32.7 g/dL Normal 29.9-35.2 [facility] Comment on above: Performed By: #### T SH, BMP #### [facility] [address] [place] [address] Dr. Ladan Diehl MCV (RBC) [Entitic vol] 90.6 fL Normal 80.0-94.0 [facility] Comment on above: Performed By: #### T SH, BMP #### [facility] [address] [place] [address] Dr. Ladan Diehl MONO # 0.8 103/ul Normal 0.3-0.8 [facility] Comment on above: Performed By: #### T SH, BMP #### [facility] [address] [place] [address] Dr. Ladan Diehl Monocytes/100 WBC (Bld) 10.4 % Normal 1.7-12.0 [facility] Comment on above: Performed By: #### T SH, BMP #### [facility] [address] [place] [address] Dr. Ladan Diehl NEUT # 4.2 103/ul Normal 1.4-6.5 [facility] Comment on above: Performed By: #### T SH, BMP #### [facility] [address] [place] [address] Dr. Ladan Diehl Neutrophils/100 WBC (Bld) 56.3 % Normal 43.0-75.0 [facility] Comment on above: Performed By: #### T SH, BMP #### [facility] [address] [place] [address] Dr. Ladan Diehl Platelet mean volume (Bld) [Entitic vol] 9.9 fL Normal 9.5-13.5 [facility] Comment on above: Performed By: #### T SH, BMP #### [facility] [address] [place] [address] Dr. Ladan Diehl PLT 227 103/ul Normal 150-450 [facility] Comment on above: Performed By: #### T SH, BMP #### [facility] [address] [place] [address] Dr. Ladan Diehl RBC 4.05 106/ul Critically low 4.70-6.10 [facility] Comment on above: Performed By: #### T SH, BMP #### [facility] [address] [place] [address] Dr. Ladan Diehl WBC 7.4 103/ul Normal 4.0-11.0 [facility] Comment on above: Performed By: #### T SH, BMP #### [facility] [address] [place] [address] Dr. Ladan Diehl FREE T3on 12-19-2022 FREE T3 2.07 pg/mlL Critically low 2.18-3.98 [facility] Comment on above: Performed By: #### T SH, BMP #### [facility] [address] [address] [address] Ladan Diehl FREE T4on 12-19-2022 Free T4 [Mass/Vol] 1.14 ng/dL Normal 0.76-1.46 [facility] Comment on above: Performed By: #### T SH, BMP #### [facility] [address] [address] [address] Ladan Diehl GLYCOHEMOGLOBIN A1Con 2022 ADA RECOMMENDATION SEE BELOW Normal [facility] Comment on above: Result Comment: ADA RECOMMENDED LIMIT 4.0 - 6.0 ADA THERAPEUTIC TARGET < 7.0 ACTION SUGGESTED > 7.0 Performed By: #### T SH, BMP #### [facility] [address] [place] [address] Dr. Ladan Diehl Glucose [Mass/Vol] 134 mg/dL Normal [facility] Comment on above: Performed By: #### T SH, BMP #### [facility] [address] [place] [address] Dr. Ladan Diehl HbA1c (Bld) [Mass fraction] 6.3 % Critically high 4.5-6.2 [facility] Comment on above: Performed By: #### T SH, BMP #### [facility] [address] [place] [address] Dr. Ladan Diehl LIPID PROFILEon 12-19-2022 CHOL-HDL RATIO NORM SEE BELOW Normal [facility] Comment on above: Result Comment: 3.3 - 4.4 LOW RISK 4.4 - 7.1 AVERAGE RISK 7.1 - 11.0 MODERATE RISK >11.0 HIGH RISK Performed By: #### T SH, BMP #### [facility] [address] [address] [address] Ladan Diehl Cholesterol [Mass/Vol] 118 mg/dL Normal <=200 [facility] Comment on above: Performed By: #### T SH, BMP #### [facility] [address] [address] [address] Ladan Diehl Cholesterol in HDL [Mass/Vol] 43 mg/dL Normal 40-60 [facility] Comment on above: Performed By: #### T SH, BMP #### [facility] [address] [address] [address] Ladan Diehl Cholesterol in LDL [Mass/Vol] 48.8 mg/dL Normal [facility] Comment on above: Performed By: #### T SH, BMP #### [facility] [address] [place] [address] Dr. Ladan Diehl Cholesterol.total/Choles terol in HDL [Mass ratio] 2.7 {ratio} Normal [facility] Comment on above: Performed By: #### T SH, BMP #### [facility] [address] [place] [address] Dr. Ladan Diehl HDL NORMAL > or = 60 mg/dl - LOW CARDIOVASCULAR RISK <40 mg/dl - HIGH CARDIOVASCULAR RISK Normal [facility] Comment on above: Performed By: #### T SH, BMP #### [facility] [address] [place] [address] Dr. Ladan Diehl LDL CALC NORMAL SEE BELOW Normal [facility] Comment on above: Result Comment: <100 mg/dl OPTIMAL 100 - 129 mg/dl NEAR OR ABOVE OPTIMAL 130 - 159 mg/dl BORDERLINE HIGH 160 - 189 mg/dl HIGH >190 mg/dl VERY HIGH Performed By: #### T SH, BMP #### [facility] [address] [place] [address] Dr. Ladan Diehl Triglyceride [Mass/Vol] 131 mg/dL Normal <=150 [facility] Comment on above: Performed By: #### T SH, BMP #### [facility] [address] [place] [address] Dr. Ladan Diehl VLDL CALC 26.2 mg/dL Normal [facility] Comment on above: Performed By: #### T SH, BMP #### [facility] [address] [place] [address] Dr. Ladan Diehl LIVER PROFILEon 12-19-2022 Albumin [Mass/Vol] 2.7 g/dL Critically low 3.4-5.0 [facility] Comment on above: Performed By: #### T SH, BMP #### [facility] [address] [address] [address] Ladan Diehl Albumin/Globulin [Mass ratio] 0.4 {ratio} Normal [facility] Comment on above: Performed By: #### T SH, BMP #### [facility] [address] [address] [address] Ladan Diehl ALP [Catalytic activity/Vol] 154 U/L Critically high 46-116 [facility] Comment on above: Performed By: #### T SH, BMP #### [facility] [address] [address] [address] Ladan Diehl ALT [Catalytic activity/Vol] 25 U/L Normal 16-63 [facility] Comment on above: Performed By: #### T SH, BMP #### [facility] [address] [place] [address] Dr. Ladan Diehl AST [Catalytic activity/Vol] 38 U/L Critically high 15-37 [facility] Comment on above: Performed By: #### T STEFF, BMP #### [facility] [address] [place] [address] Dr. Ladan Diehl BILI, CONJUGATED 0.2 mg/dL Normal 0.0-0.2 [facility] Comment on above: Performed By: #### T SH, BMP #### [facility] [address] [place] [address] Dr. Ladan Diehl Bilirubin [Mass/Vol] 0.8 mg/dL Normal 0.2-1.0 [facility] Comment on above: Performed By: #### T SH, BMP #### [facility] [address] [place] [address] Dr. Ladan Diehl Globulin (S) [Mass/Vol] 6.2 g/dL Normal [facility] Comment on above: Performed By: #### T SH, BMP #### [facility] [address] [place] [address] Dr. Ladan Diehl Protein [Mass/Vol] 8.9 g/dL Critically high 6.4-8.2 [facility] Comment on above: Performed By: #### T SH, BMP #### [facility] [address] [place] [address] Dr. Ladan Diehl MICROALBUMIN, RAND URon 12-09 mALB 25.4 mg/dL Normal <=30.0 [facility] Comment on above: Performed By: #### T SH, BMP #### [facility] [address] [place] [address] Dr. Ladan Diehl PROF CHEM 8 (BAS METB)on Anion gap [Moles/Vol] 10.7 mmol/L Normal [facility] Comment on above: Performed By: #### T SH, BMP #### [facility] [address] [address] [address] Ladan Diehl Calcium [Mass/Vol] 9.0 mg/dL Normal 8.5-10.1 [facility] Comment on above: Performed By: #### T SH, BMP #### [facility] [address] [place] [address] Dr. Ladan Diehl Chloride [Moles/Vol] 103 mmol/L Normal 98-107 [facility] Comment on above: Performed By: #### T SH, BMP #### [facility] [address] [place] [address] Dr. Ladan Diehl CO2 [Moles/Vol] 27.5 mmol/L Normal 21.0-32.0 [facility] Comment on above: Performed By: #### T SH, BMP #### [facility] [address] [place] [address] Dr. Ladan Diehl Creatinine [Mass/Vol] 1.29 mg/dL Normal 0.70-1.30 [facility] Comment on above: Performed By: #### T SH, BMP #### [facility] [address] [place] [address] Dr. Ladan Diehl EGFR-AF QATARI >60 Normal >=60 [facility] Comment on above: Performed By: #### T SH, BMP #### [facility] [address] [place] [address] Dr. Ladna Diehl EGFR-NON AF QATARI 56 mL/min/1.73m2 Critically low >=60 [facility] Comment on above: Performed By: #### T SH, BMP #### [facility] [address] [address] [address] Ladan Diehl Glucose [Mass/Vol] 108 mg/dL Critically high 74-106 [facility] Comment on above: Performed By: #### T SH, BMP #### [facility] [address] [place] [address] Dr. Ladan Diehl Potassium [Moles/Vol] 4.2 mmol/L Normal 3.5-5.1 [facility] Comment on above: Performed By: #### T SH, BMP #### [facility] [address] [place] [address] Dr. Ladan Diehl Sodium [Moles/Vol] 137 mmol/L Normal 136-145 [facility] Comment on above: Performed By: #### T SH, BMP #### [facility] [address] [place] [address] Dr. Ladan Diehl Urea nitrogen [Mass/Vol] 12.0 mg/dL Normal 7.0-18.0 [facility] Comment on above: Performed By: #### T SH, BMP #### [facility] [address] [place] [address] Dr. Ladan Diehl Urea nitrogen/Creatinine [Mass ratio] 9.3 mg/mg Normal [facility] Comment on above: Performed By: #### T SH, BMP #### [facility] [address] [place] [address] Dr. Ladan Diehl TSHon 12-19-2022 TSH 8.668 uIU/mL Critically high 0.358-3.740 [facility] Comment on above: Performed By: #### T SH, BMP #### [facility] [address] [place] [address] Dr. Ladan Diehl GLYCOHEMOGLOBIN A1Con 2021 ADA RECOMMENDATION SEE BELOW Normal [facility] Comment on above: Result Comment: ADA RECOMMENDED LIMIT 4.0 - 6.0 ADA THERAPEUTIC TARGET < 7.0 ACTION SUGGESTED > 7.0 Performed By: #### A 1C #### [facility] [address] [place], [place] [address] Dr. Ladan Diehl Glucose [Mass/Vol] 140 mg/dL Normal [facility] Comment on above: Performed By: #### A 1C #### [facility] [address] [place], [place] [address] Dr. Ladan Diehl HbA1c (Bld) [Mass fraction] 6.5 % Critically high 4.5-6.2 [facility] Comment on above: Performed By: #### A 1C #### [facility] [id number] Lad[address] Diehl [address] CSPINE WO CONon [...] CAROL YIP Date: 2022-05-17 13:25 Normal [facility] CT HEAD WO CONon 05-17-2022 CT [...] by: CAROL YIP Date: 2022-05-17 13:07 Normal [facility] XR CHEST 1 Von 05-17-2022 [...] by: ABBIE AMBROCIO Date: 2022-05-17 12:53 Normal [facility] Progress Noteson 05-03-2022 [employer] Operator Authentication Interface Message Text EMERGENCY TRIAGE, TREAT AND TRANSPORT (ET3) DOCUMENTATION OF TELEHEALTH VISIT Date / Time: 05/01/2022599 Name: Evelin Patterson : 1955 SSN: [id number] EMS Agency: [facility] [x] Verbal consent obtained [] Implied [...] Completed by: Peter Molina, DO Normal [facility] Activated partial thrombopla stin time (aPTT) in platelet poor plasma by coagulation aOrdered By: Ramesh Byrd on 04-12-2022 aPTT Coag (PPP) [Time] 24.8 s 25.1-36.5 [facility] Automated erythrocytes count in urine sediment (number/area)Ordered By: Ramesh Byrd on 04-12-2022 RBC Auto (Urine sed) [#/Area] 20-49 [HPF] 0-4 [facility] Automated leukocytes count i n urine sediment (number/area)Ordered By: Ramesh Byrd on 04-12-2022 WBC Auto (Urine sed) [#/Area] 1-2 [HPF] 0-4 [facility] B-Type Natriuretic Peptideon 04-12-2022 Natriuretic peptide B (Bld) [Mass/Vol] 196.0 pg/mL High 5-100 [facility] Comment on above: Result Comment: PERF ORMED BY: [facility] [address] [place] [id number] PATHOLOGIST [employer] CHARLENE HERNANDEZ M.D. Performed By: #### C MP, TSH3, PT, HS TROP, PTT, BNP, MG, CBC #### [facility] [address] Basophils Auto (Bld) [#/Vol] Ordered By: Ramesh Byrd on 04-12-2022 Basophils (Bld) [#/Vol] 0.0 10*3/uL 0.0-0.2 [facility] Basophils/100 WBC Auto (Bld) Ordered By: Ramesh Byrd on 04-12-2022 Basophils/100 WBC (Bld) 0.6 % . [facility] Bilirubin Test strip Ql (U)O rdered By: Ramesh Byrd on 04-12-2022 Bilirubin Ql (U) Negative Negative [facility] Blood hemoglobin measurement (mass/volume)Ordered By: Ramesh Byrd on 04-12-2022 Hemoglobin (Bld) [Mass/Vol] 12.2 g/dL 13.0-17.0 [facility] Blood leukocytes automated c ount (number/volume)Ordered By: Ramesh Byrd on 04-12-2022 WBC (Bld) [#/Vol] 6.4 10*3/uL 4.5-11.0 [facility] Body fluid albumin measureme nt (mass/volume)Ordered By: Ramesh Byrd on 04-12-2022 Albumin (Body fld) [Mass/Vol] 2.3 g/dL 3.2-5.5 [facility] Color Auto (U)Ordered By: Andi Byrd on 04-12-2022 Color (U) Yellow Yellow [facility] Complete Blood Count Auto Di ffon 04-12-2022 Basophils (Bld) [#/Vol] 0.0 10*3/uL Normal 0.0-0.2 [facility] Comment on above: Result Comment: PERF ORMED BY: [facility] [address] [place] [address] PATHOLOGIST [employer] CHARLENE HERNANDEZ M.D. Performed By: #### C MP, TSH3, PT, HS TROP, PTT, BNP, MG, CBC #### [address] Basophils/100 WBC (Bld) 0.6 % Normal . [facility] Comment on above: Performed By: #### C MP, TSH3, PT, HS TROP, PTT, BNP, MG, CBC #### [address] Eosinophils (Bld) [#/Vol] 0.2 10*3/uL Normal 0.0-0.45 [facility] Comment on above: Performed By: #### C MP, TSH3, PT, HS TROP, PTT, BNP, MG, CBC #### [address] Eosinophils/100 WBC (Bld) 2.7 % Normal . [facility] Comment on above: Performed By: #### C MP, TSH3, PT, HS TROP, PTT, BNP, MG, CBC #### [address] Erythrocyte distribution width (RBC) [Ratio] 16.7 % High 12.0-14.8 [facility] Comment on above: Performed By: #### C MP, TSH3, PT, HS TROP, PTT, BNP, MG, CBC #### [address] Hematocrit (Bld) [Volume fraction] 36.7 % Low 38.8-50.0 [facility] Comment on above: Performed By: #### C MP, TSH3, PT, HS TROP, PTT, BNP, MG, CBC #### [address] Hemoglobin (Bld) [Mass/Vol] 12.2 g/dL Low 13.0-17.0 [facility] Comment on above: Performed By: #### C MP, TSH3, PT, HS TROP, PTT, BNP, MG, CBC #### [address] Lymphocytes (Bld) [#/Vol] 1.0 10*3/uL Normal 1.00-4.8 [facility] Comment on above: Performed By: #### C MP, TSH3, PT, HS TROP, PTT, BNP, MG, CBC #### [address] Lymphocytes/100 WBC (Bld) 16.1 % Normal . [facility] Comment on above: Performed By: #### C MP, TSH3, PT, HS TROP, PTT, BNP, MG, CBC #### [address] MCH (RBC) [Entitic mass] 31.0 pg Normal 27.5-35.2 [facility] Comment on above: Performed By: #### C MP, TSH3, PT, HS TROP, PTT, BNP, MG, CBC #### [address] MCV (RBC) [Entitic vol] 93.5 fL Normal 83.5-101 [facility] Comment on above: Performed By: #### C MP, TSH3, PT, HS TROP, PTT, BNP, MG, CBC #### [address] Mean Corpuscular HGB Conc 33.1 g/dL Normal 32.5-35.6 [facility] Comment on above: Performed By: #### C MP, TSH3, PT, HS TROP, PTT, BNP, MG, CBC #### [address] Monocytes (Bld) [#/Vol] 0.8 10*3/uL Normal 0.0-0.8 [facility] Comment on above: Performed By: #### C MP, TSH3, PT, HS TROP, PTT, BNP, MG, CBC #### [address] Monocytes/100 WBC (Bld) 12.0 % Normal . [facility] Comment on above: Performed By: #### C MP, TSH3, PT, HS TROP, PTT, BNP, MG, CBC #### [place] [address] [place] Neutrophils (Bld) [#/Vol] 4.4 10*3/uL Normal 1.8-7.7 [facility] Comment on above: Performed By: #### C MP, TSH3, PT, HS TROP, PTT, BNP, MG, CBC #### [facility] [address] Neutrophils/100 WBC (Bld) 68.6 % Normal . [facility] Comment on above: Performed By: #### C MP, TSH3, PT, HS TROP, PTT, BNP, MG, CBC #### [facility] [address] Nucleated RBC/100 WBC (Bld) [Ratio] 0.1 % Normal 0-0.5 [facility] Comment on above: Performed By: #### C MP, TSH3, PT, HS TROP, PTT, BNP, MG, CBC #### [facility] [address] Platelet mean volume (Bld) [Entitic vol] 8.0 fL Normal 6.6-10.1 [facility] Comment on above: Performed By: #### C MP, TSH3, PT, HS TROP, PTT, BNP, MG, CBC #### [facility] [address] Platelets (Bld) [#/Vol] 191 10*3/uL Normal 150-450 [facility] Comment on above: Performed By: #### C MP, TSH3, PT, HS TROP, PTT, BNP, MG, CBC #### [facility] [address] [place] [address] [place] RBC (Bld) [#/Vol] 3.93 10*6/uL Normal 3.90-5.60 [facility] Comment on above: Performed By: #### C MP, TSH3, PT, HS TROP, PTT, BNP, MG, CBC #### [facility] [address] WBC (Bld) [#/Vol] 6.4 10*3/uL Normal 4.5-11.0 [facility] Comment on above: Performed By: #### C MP, TSH3, PT, HS TROP, PTT, BNP, MG, CBC #### [facility] [address] Comprehensive Metabolic Pane xavier 04-12-2022 Albumin [Mass/Vol] 2.3 g/dL Low 3.2-5.5 [facility] Comment on above: Performed By: #### C MP, TSH3, PT, HS TROP, PTT, BNP, MG, CBC #### [facility] [address] Albumin/Globulin [Mass ratio] 0.5 {ratio} Normal [facility] Comment on above: Performed By: #### C MP, TSH3, PT, HS TROP, PTT, BNP, MG, CBC #### [address] ALP [Catalytic activity/Vol] 97 U/L High 32-92 [facility] Comment on above: Performed By: #### C MP, TSH3, PT, HS TROP, PTT, BNP, MG, CBC #### [address] ALT [Catalytic activity/Vol] 34 U/L Normal 10-60 [facility] Comment on above: Performed By: #### C MP, TSH3, PT, HS TROP, PTT, BNP, MG, CBC #### [address] Anion gap [Moles/Vol] 17.1 mmol/L High 6.0-15.0 [facility] Comment on above: Performed By: #### C MP, TSH3, PT, HS TROP, PTT, BNP, MG, CBC #### [address] AST [Catalytic activity/Vol] 136 U/L High 10-42 [facility] Comment on above: Performed By: #### C MP, TSH3, PT, HS TROP, PTT, BNP, MG, CBC #### [place] [address] [place] Bilirubin [Mass/Vol] 1.3 mg/dL High 0.3-1.2 [facility] Comment on above: Result Comment: Samp les from patients who have taken Naproxen have shown spurious elevation in Total Bilirubin levels. A metabolite of Naproxen, O-desmethylnaproxen, has been shown to interfere with the Jendrassik-Grof method for measuring Total Bilirubin. Performed By: #### C MP, TSH3, PT, HS TROP, PTT, BNP, MG, CBC #### [facility] [address] Calcium [Mass/Vol] 8.6 mg/dL Normal 8.2-10.2 [facility] Comment on above: Performed By: #### C MP, TSH3, PT, HS TROP, PTT, BNP, MG, CBC #### [address] Chloride [Moles/Vol] 97 mmol/L Normal 95-114 [facility] Comment on above: Performed By: #### C MP, TSH3, PT, HS TROP, PTT, BNP, MG, CBC #### [facility] [address] CO2 [Moles/Vol] 25.4 mmol/L Normal 22.0-30.0 [facility] Comment on above: Performed By: #### C MP, TSH3, PT, HS TROP, PTT, BNP, MG, CBC #### [facility] [address] Creatinine [Mass/Vol] 1.14 mg/dL Normal 0.64-1.27 [facility] Comment on above: Performed By: #### C MP, TSH3, PT, HS TROP, PTT, BNP, MG, CBC #### [facility] [address] Creatinine Clr Calc Pharmacy 97.67 [facility] Comment on above: Performed By: #### C MP, TSH3, PT, HS TROP, PTT, BNP, MG, CBC #### [address] Estimated GFR ( Lilibeth > 60 Normal [facility] Comment on above: Result Comment: GFR estimated reference range: According to KDOQI guidelines, <60 ml/min/1.73m2 is sufficient to diagnose a patient with chronic kidney disease. Performed By: #### C MP, TSH3, PT, HS TROP, PTT, BNP, MG, CBC #### [facility] [address] [place] [address] [place] Estimated GFR (Non- Am > 60 Normal [facility] Comment on above: Performed By: #### C MP, TSH3, PT, HS TROP, PTT, BNP, MG, CBC #### [facility] [address] [place] [address] [place] Globulin (S) [Mass/Vol] 4.7 g/dL Normal [facility] Comment on above: Performed By: #### C MP, TSH3, PT, HS TROP, PTT, BNP, MG, CBC #### [facility] [address] Glucose [Mass/Vol] 164 mg/dL High 70-100 [facility] Comment on above: Result Comment: [place] Glucose Reference Range is dependent on time and content of last meal. Glucose of more than 200 mg/dL in a nonstressed, ambulatory subject supports the diagnosis of Diabetes Mellitus. ADA recommended reference range Performed By: #### C MP, TSH3, PT, HS TROP, PTT, BNP, MG, CBC #### [place] [address] [place] Potassium [Moles/Vol] 3.5 mmol/L Normal 3.5-5.1 [facility] Comment on above: Performed By: #### C MP, TSH3, PT, HS TROP, PTT, BNP, MG, CBC #### [facility] [address] [place] [address] [place] Protein [Mass/Vol] 7.0 g/dL Normal 6.1-7.9 [facility] Comment on above: Performed By: #### C MP, TSH3, PT, HS TROP, PTT, BNP, MG, CBC #### [place] [address] [place] Sodium [Moles/Vol] 136 mmol/L Normal 136-146 [facility] Comment on above: Performed By: #### C MP, TSH3, PT, HS TROP, PTT, BNP, MG, CBC #### [facility] [address] Urea nitrogen [Mass/Vol] 13 mg/dL Normal 9-23 [facility] Comment on above: Performed By: #### C MP, TSH3, PT, HS TROP, PTT, BNP, MG, CBC #### [facility] [address] [place] [address] [place] Creatinine and Glomerular fi ltration rate.predicted panel (S/P/Bld)Ordered By: Ramesh Bydr on 04-12-2022 Creatinine [Mass/Vol] 1.14 mg/dL 0.64-1.27 [facility] Dipstick and Microscopicon 0 04-12-2022 Appearance (U) Clear Normal Clear [facility] Comment on above: Order Comment: Name Collection Type:: Clean-Voided Midstream Performed By: #### A DDONUAPLUS #### [place] [address] [place] Bacteria,Urine None Seen Normal None Seen [facility] Comment on above: Order Comment: Name Collection Type:: Clean-Voided Midstream Performed By: #### A DDONUAPLUS #### [place] [address] [place] Bilirubin,Urine Negative Normal Negative [facility] Comment on above: Order Comment: Name Collection Type:: Clean-Voided Midstream Performed By: #### A DDONUAPLUS #### [place] [address] [place] Color (U) Yellow Normal Yellow [facility] Comment on above: Order Comment: Name Collection Type:: Clean-Voided Midstream Performed By: #### A DDONUAPLUS #### [place] [address] [place] Glucose Ql (U) Normal Normal Normal [facility] Comment on above: Order Comment: Name Collection Type:: Clean-Voided Midstream Performed By: #### A DDONUAPLUS #### [place] [address] [place] Hyaline Casts,Urine 0-8 Normal 0-8 [facility] Comment on above: Order Comment: Name Collection Type:: Clean-Voided Midstream Result Comment: PERF ORMED BY: [place] [address] PATHOLOGIST [employer] CHARLENE HERNANDEZ M.D. Performed By: #### A DDONUAPLUS #### [address] Ketones Ql (U) Trace High Negative [facility] Comment on above: Order Comment: Name Collection Type:: Clean-Voided Midstream Performed By: #### A DDONUAPLUS #### [address] Leukocyte esterase Test strip Ql (U) Negative Normal Negative [facility] Comment on above: Order Comment: Name Collection Type:: Clean-Voided Midstream Performed By: #### A DDONUAPLUS #### [place] [address] [place] Nitrite,Urine Negative Normal Negative [facility] Comment on above: Order Comment: Name Collection Type:: Clean-Voided Midstream Performed By: #### A DDONUAPLUS #### [place] [address] [place] Occult Blood,Urine 2+ High Negative [facility] Comment on above: Order Comment: Name Collection Type:: Clean-Voided Midstream Result Comment: PERF ORMED BY: [place] [address] PATHOLOGIST [employer] CHARLENE HERNANDEZ M.D. Performed By: #### A DDONUAPLUS #### [place] [address] [place] pH (U) 6.5 [pH] Normal 5.0-9.0 [facility] Comment on above: Order Comment: Name Collection Type:: Clean-Voided Midstream Performed By: #### A DDONUAPLUS #### [address] Protein (U) [Mass/Vol] 100 mg/dL High Negative [facility] Comment on above: Order Comment: Name Collection Type:: Clean-Voided Midstream Performed By: #### A DDONUAPLUS #### [address] RBC,Urine 20-49 High 0-4 [facility] Comment on above: Order Comment: Name Collection Type:: Clean-Voided Midstream Performed By: #### A DDONUAPLUS #### [address] Specificy [place],Urine 1.020 Normal 1.001-1.030 [facility] Comment on above: Order Comment: Name Collection Type:: Clean-Voided Midstream Performed By: #### A DDONUAPLUS #### [address] Squamous Epithelial Cell,Urine 0-1 Normal 0-2 [facility] Comment on above: Order Comment: Name Collection Type:: Clean-Voided Midstream Performed By: #### A DDONUAPLUS #### [address] Urobilinogen,Urine Normal Normal Normal [facility] Comment on above: Order Comment: Name Collection Type:: Clean-Voided Midstream Performed By: #### A DDONUAPLUS #### [place] [address] [place] WBC,Urine 1-2 Normal 0-4 [facility] Comment on above: Order Comment: Name Collection Type:: Clean-Voided Midstream Performed By: #### A DDONUAPLUS #### [address] ECG 12 lead ECGon 04-12-2022 ECG 12 lead ECG [facility] [place] [address] [place] [address] Electrocardiograph Report Signed Patient: Evelin Patterson MR#: [id number] 005 : 1955 Acct:[id number] Age/Sex: 66 / M ADM Date: 04/12/22 Loc: ER Room: Type: [facility] ER Attending Dr: Ordering Provider: Ramesh [...] Prolonged QT Confirmed by Ramesh BYRD DO ([id number]) on 04/12/2022 4:38:01 PM Referred By: Electronically Signed By:Ramesh BYRD DO Transcribed By: MUS Signed By Ramesh Byrd DO 0 04/12/22 1638 Normal [facility] Eosinophils Auto (Bld) [#/Vo l]Ordered By: Ramesh Byrd on 04-12-2022 Eosinophils (Bld) [#/Vol] 0.2 10*3/uL 0.0-0.45 [facility] Eosinophils/100 WBC Auto (Bl d)Ordered By: Ramesh Byrd on 04-12-2022 Eosinophils/100 WBC (Bld) 2.7 % . [facility] Erythrocyte distribution wid th Auto (RBC) [Ratio]Ordered By: Ramesh Byrd on 04-12-2022 Erythrocyte distribution width (RBC) [Ratio] 16.7 % 12.0-14.8 [facility] Estimated glomerular filtrat ion rate (GFR) non- AmericanOrdered By: Ramesh Byrd on 04-12-2022 GFR/1.73 sq M.predicted among non-blacks MDRD (S/P/Bld) [Vol rate/Area] > 60 mL/Min [facility] Globulin Calc (S) [Mass/Vol] Ordered By: Ramesh Byrd on 04-12-2022 Globulin (S) [Mass/Vol] 4.7 g/dL [facility] Glucose Glucometer (BldC) [M ass/Vol]Ordered By: Ramesh Byrd on 04-12-2022 Glucose [Mass/Vol] 168 mg/dL [facility] Comment on above: Random Glucose Refer ence Range is dependent on time and content of last meal. Glucose of more than 200 mg/dL in a nonstressed, ambulatory subject supports the diagnosis of Diabetes Mellitus. Glucose Poct Glucometerson 0 04-12-2022 Glucose [Mass/Vol] 168 mg/dL Normal [facility] Comment on above: Result Comment: [place] om Glucose Reference Range is dependent on time and content of last meal. Glucose of more than 200 mg/dL in a nonstressed, ambulatory subject supports the diagnosis of Diabetes Mellitus. PERFORMED BY: [facility] [address] [place] [address] PATHOLOGIST [employer] CHARLENE HERNANDEZ M.D. Performed By: #### G CARMEN #### Point of Care testing , Hematocrit Auto (Bld) [Volum e fraction]Ordered By: Ramesh Byrd on 04-12-2022 Hematocrit (Bld) [Volume fraction] 36.7 % 38.8-50.0 [facility] Ketones Auto test strip (U) [Mass/Vol]Ordered By: Ramesh Byrd on 04-12-2022 Ketones (U) [Mass/Vol] Trace Negative [facility] Laboratory - Chemistry and C hemistry - challengeOrdered By: Ramesh Byrd on 04-12-2022 Magnesium [Mass/Vol] 1.3 mg/dL 1.6-2.6 [facility] Natriuretic peptide B (Bld) [Mass/Vol] 196.0 pg/mL 5-100 [facility] Laboratory - CoagulationOrde red By: Ramesh Byrd on 04-12-2022 PT Coag (PPP) [Time] 12.5 s 9.0-12.9 [facility] Laboratory - Hematology and Cell countsOrdered By: Ramesh Byrd on 04-12-2022 Nucleated RBC/100 WBC (Bld) [Ratio] 0.1 % 0-0.5 [facility] Laboratory - UrinalysisOrder ed By: Ramesh Byrd on 04-12-2022 Hyaline casts LM Ql (Urine sed) 0-8 [LPF] 0-8 [facility] Lymphocytes Auto (Bld) [#/Vo l]Ordered By: Ramesh Byrd on 04-12-2022 Lymphocytes (Bld) [#/Vol] 1.0 10*3/uL 1.00-4.8 [facility] Lymphocytes/100 WBC Auto (Bl d)Ordered By: Ramesh Byrd on 04-12-2022 Lymphocytes/100 WBC (Bld) 16.1 % . [facility] MCH Auto (RBC) [Entitic mass ]Ordered By: Ramesh Byrd on 04-12-2022 MCH (RBC) [Entitic mass] 31.0 pg 27.5-35.2 [facility] MCHC Auto (RBC) [Mass/Vol]Or dered By: Ramesh Byrd on 04-12-2022 MCHC (RBC) [Mass/Vol] 33.1 g/dL 32.5-35.6 [facility] MCV Auto (RBC) [Entitic vol] Ordered By: Ramesh Byrd on 04-12-2022 MCV (RBC) [Entitic vol] 93.5 fL 83.5-101 F [facility] Magnesiumon 04-12-2022 Magnesium [Mass/Vol] 1.3 mg/dL Low 1.6-2.6 [facility] Comment on above: Performed By: #### G LULS #### Point of Care testing , Monocytes Auto (Bld) [#/Vol] Ordered By: Ramesh Byrd on 04-12-2022 Monocytes (Bld) [#/Vol] 0.8 10*3/uL 0.0-0.8 [facility] Monocytes/100 WBC Auto (Bld) Ordered By: Ramesh Byrd on 04-12-2022 Monocytes/100 WBC (Bld) 12.0 % . [facility] Neutrophils Auto (Bld) [#/Vo l]Ordered By: Ramesh Byrd on 04-12-2022 Neutrophils (Bld) [#/Vol] 4.4 10*3/uL 1.8-7.7 [facility] Neutrophils/100 WBC Auto (Bl d)Ordered By: Ramesh Byrd on 04-12-2022 Neutrophils/100 WBC (Bld) 68.6 % . [facility] Nitrite Test strip Ql (U)Ord ered By: Ramesh Byrd on 04-12-2022 Nitrite Ql (U) Negative Negative [facility] No Panel InformationOrdered By: Ramesh Byrd on 04-12-2022 Estimated GFR () > 60 mL/Min [facility] Comment on above: GFR estimated refere nce range: According to KDOQI guidelines, <60 ml/min/1.73m2 is sufficient to diagnose a patient with chronic kidney disease. Pharmacy Creatinine Clearance (Chem 97.67 [facility] Partial Thromboplastin Timeo n 04-12-2022 aPTT Coag (Bld) [Time] 24.8 s Low 25.1-36.5 [facility] Comment on above: Result Comment: PERF ORMED BY: [place] [address] PATHOLOGIST [employer] CHARLENE HERNANDEZ M.D. Performed By: #### C MP, TSH3, PT, HS TROP, PTT, BNP, MG, CBC #### [facility] [address] Platelet mean volume Auto (B ld) [Entitic vol]Ordered By: Ramesh Byrd on 04-12-2022 Platelet mean volume (Bld) [Entitic vol] 8.0 fL 6.6-10.1 [facility] Platelet poor plasma interna tional normalized ratio (INR) by coagulation assay (relatOrdered By: Ramesh Byrd on 04-12-2022 INR Coag (PPP) [Relative time] 1.1 {INR} [facility] Comment on above: INR Therapeutic Rang e [...] 04-12-2022 Platelets (Bld) [#/Vol] 191 10*3/uL 150-450 [facility] Protein Auto test strip (U) [Mass/Vol]Ordered By: Ramesh Byrd on 04-12-2022 Protein (U) [Mass/Vol] 100 mg/dL Negative [facility] Protein [Mass/volume] in Ser um or PlasmaOrdered By: Ramesh Byrd on 04-12-2022 Protein [Mass/Vol] 7.0 g/dL 6.1-7.9 [facility] Prothrombin Time INRon 04-12 INR Coag (PPP) [Relative time] 1.1 {INR} Normal [facility] Comment on above: Result Comment: INR Therapeutic [...] HS TROP, PTT, BNP, MG, CBC #### [facility] [address] PT Coag (PPP) [Time] 12.5 s Normal 9.0-12.9 [facility] Comment on above: Performed By: #### C MP, TSH3, PT, HS TROP, PTT, BNP, MG, CBC #### [facility] [address] RBC Auto (Bld) [#/Vol]Ordere d By: Ramesh Byrd on 04-12-2022 RBC (Bld) [#/Vol] 3.93 10*6/uL 3.90-5.60 [facility] Serum or plasma alanine vivas otransferase measurement without P-5'-P (enzymatic activiOrdered By: Ramesh Byrd on 04-12-2022 ALT No additional P-5'-P [Catalytic activity/Vol] 34 U/L 10-60 [facility] Serum or plasma albumin/glob ulin mass ratioOrdered By: Ramesh Byrd on 04-12-2022 Albumin/Globulin [Mass ratio] 0.5 {ratio} [facility] Serum or plasma alkaline dilan sphatase measurement (enzymatic activity/volume)Ordered By: Ramesh Byrd on 04-12-2022 ALP [Catalytic activity/Vol] 97 U/L 32-92 [facility] Serum or plasma anion gap de terminationOrdered By: Ramesh Byrd on 04-12-2022 Anion gap [Moles/Vol] 17.1 mmol/L 6.0-15.0 [facility] Serum or plasma aspartate am inotransferase measurement (enzymatic activity/volume)Ordered By: Ramesh Byrd on 04-12-2022 AST [Catalytic activity/Vol] 136 U/L 10-42 [facility] Serum or plasma calcium osbaldo urement (mass/volume)Ordered By: Ramesh Byrd on 04-12-2022 Calcium [Mass/Vol] 8.6 mg/dL 8.2-10.2 [facility] Serum or plasma chloride judith surement (moles/volume)Ordered By: Ramesh Byrd on 04-12-2022 Chloride [Moles/Vol] 97 mmol/L 95-114 [facility] Serum or plasma glucose osbaldo urement (mass/volume)Ordered By: Ramesh Byrd on 04-12-2022 Glucose [Mass/Vol] 164 mg/dL 70-100 [facility] Comment on above: ADA recommended refe rence range Random Glucose Reference Range is dependent on time and content of last meal. Glucose of more than 200 mg/dL in a nonstressed, ambulatory subject supports the diagnosis of Diabetes Mellitus. Serum or plasma potassium me asurement (moles/volume)Ordered By: Ramesh Byrd on 04-12-2022 Potassium [Moles/Vol] 3.5 mmol/L 3.5-5.1 [facility] Serum or plasma sodium measu rement (moles/volume)Ordered By: Ramesh Byrd on 04-12-2022 Sodium [Moles/Vol] 136 mmol/L 136-146 [facility] Serum or plasma total biliru bin measurement (mass/volume)Ordered By: Ramesh Byrd on 04-12-2022 Bilirubin [Mass/Vol] 1.3 mg/dL 0.3-1.2 [facility] Comment on above: Samples from patient s who have taken Naproxen have shown spurious elevation in Total Bilirubin levels. A metabolite of Naproxen, O-desmethylnaproxen, has been shown to interfere with the Jendrassik-Grof method for measuring Total Bilirubin. Serum or plasma total carbon dioxide measurement (moles/volume)Ordered By: Ramesh Byrd on 04-12-2022 CO2 [Moles/Vol] 25.4 mmol/L 22.0-30.0 [facility] Serum or plasma urea nitroge n measurement (mass/volume)Ordered By: Ramesh quan on 04-12-2022 Urea nitrogen [Mass/Vol] 13 mg/dL 9- [facility] Specific gravity Auto test s trip (U) [Rel density]Ordered By: Ramesh quan on 04-12-2022 Specific gravity (U) [Rel density] 1.020 1.001-1.030 [facility] Squamous epithelial cells de tection in urine sediment by light microscopyOrdered By: Ramesh quan on 04-12-2022 Epithelial cells.squamous LM Ql (Urine sed) 0-1 [HPF] 0-2 [facility] TSH DL <= 0.005 mIU/L QnOrde red By: Ramesh Byrd on 04-12-2022 TSH Qn 13.14 m[IU]/L 0.45-5.33 [facility] Thyroid Stimulating Hormoneo n 04-12-2022 TSH Qn 13.14 m[IU]/L High 0.45-5.33 [facility] Comment on above: Result Comment: PERF ORMED BY: [place] [address] PATHOLOGIST [employer] CHARLENE HERNANDEZ M.D. Performed By: #### G LULS #### Point of Care testing , Troponin I High Sensitivityo n 04-12-2022 Troponin I High Sensitivity 18 pg/mL Normal 0-20 [facility] Comment on above: Result Comment: PERF ORMED BY: [facility] [address] [place] [id number] PATHOLOGIST [employer] CHARLENE HERNANDEZ M.D. Performed By: #### C MP, TSH3, PT, HS TROP, PTT, BNP, MG, CBC #### [facility] [address] Troponin I.cardiac [Mass/vol ume] in Serum or Plasma by High sensitivity methodOrdered By: Ramesh Byrd on 04-12-2022 Troponin I.cardiac High sensitivity method [Mass/Vol] 18 pg/mL 0-20 [facility] Urine bacteria detection by automated methodOrdered By: Ramesh Byrd on 04-12-2022 Bacteria Auto Ql (U) None seen None Seen [facility] Urine clarity by refractomet ry automatedOrdered By: Ramesh Byrd on 04-12-2022 Clarity Refractometry automated (U) Clear Clear [facility] Urine glucose measurement by automated test strip (mass/volume)Ordered By: Ramesh Byrd on 04-12-2022 Glucose Auto test strip (U) [Mass/Vol] Normal mg/dL Normal [facility] Urine hemoglobin detection b y automated test stripOrdered By: Ramesh Byrd on 04-12-2022 Hemoglobin Auto test strip Ql (U) 2+ Negative [facility] Urine leukocyte esterase det ection by automated test stripOrdered By: Ramesh Byrd on 04-12-2022 Leukocyte esterase Auto test strip Ql (U) Negative Negative [facility] Urobilinogen Auto test strip (U) [Mass/Vol]Ordered By: Ramesh Byrd on 04-12-2022 Urobilinogen (U) [Mass/Vol] Normal mg/dL Normal [facility] XR chest 2V*on 04-12-2022 XR chest 2V* [facility] [place] [address] XRay Report Signed Patient: Evelin Patterson MR#: [id number] 005 : 1955 Acct:[id number] Age/Sex: 66 / M ADM Date: 04/12/22 Loc: ER Room: Type: [facility] ER Attending Dr: Copies to: Ramesh [...] Jessica Cazares M.D.04/12/2022 11:53 AM Dictation Location: [place] [address] Transcribed By: [place] 04/12/22 1153 Dictated By: Jessica Cazares MD 04/12/22 1151 Signed By: 04/12/22 1153 Normal [facility] pH Auto test strip (U)Ordere d By: Ramesh Byrd on 04-12-2022 pH (U) 6.5 [pH] 5.0-9.0 [facility] Albumin [Mass/volume] in Ser um or PlasmaOrdered By: Lupe Hernandez on 04-09-2022 Albumin [Mass/Vol] 1.9 g/dL 3.2-5.5 [facility] Basophils Auto (Bld) [#/Vol] Ordered By: Lupe Hernandez on 04-09-2022 Basophils (Bld) [#/Vol] 0.1 10*3/uL 0.0-0.2 [facility] Basophils/100 WBC Auto (Bld) Ordered By: Lupe Hernandez on 04-09-2022 Basophils/100 WBC (Bld) 1.3 % . [facility] Blood hemoglobin measurement (mass/volume)Ordered By: Lupe Hernandez on 04-09-2022 Hemoglobin (Bld) [Mass/Vol] 11.2 g/dL 13.0-17.0 [facility] Blood leukocytes automated c ount (number/volume)Ordered By: Lupe Hernandez on 04-09-2022 WBC (Bld) [#/Vol] 5.4 10*3/uL 4.5-11.0 [facility] Creatinine and Glomerular fi ltration rate.predicted panel (S/P/Bld)Ordered By: Lupe Hernandez on 04-09-2022 Creatinine [Mass/Vol] 0.88 mg/dL 0.64-1.27 [facility] Eosinophils Auto (Bld) [#/Vo l]Ordered By: Lupe Hernandez on 04-09-2022 Eosinophils (Bld) [#/Vol] 0.3 10*3/uL 0.0-0.45 [facility] Eosinophils/100 WBC Auto (Bl d)Ordered By: Lupe Hernandez on 04-09-2022 Eosinophils/100 WBC (Bld) 5.6 % . [facility] Erythrocyte distribution wid th Auto (RBC) [Ratio]Ordered By: Lupe Hernandez on 04-09-2022 Erythrocyte distribution width (RBC) [Ratio] 16.5 % 12.0-14.8 [facility] Estimated glomerular filtrat ion rate (GFR) non- AmericanOrdered By: Lupe Hernandez on 04-09-2022 GFR/1.73 sq M.predicted among non-blacks MDRD (S/P/Bld) [Vol rate/Area] > 60 mL/Min [facility] Globulin Calc (S) [Mass/Vol] Ordered By: Lupe Hernandez on 04-09-2022 Globulin (S) [Mass/Vol] 4.2 g/dL [facility] Glucose Glucometer (BldC) [M ass/Vol]Ordered By: Lupe Hernandez on 04-09-2022 Glucose [Mass/Vol] 178 mg/dL [facility] Comment on above: Random Glucose Refer ence Range is dependent on time and content of last meal. Glucose of more than 200 mg/dL in a nonstressed, ambulatory subject supports the diagnosis of Diabetes Mellitus. Hematocrit Auto (Bld) [Volum e fraction]Ordered By: Lupe Hernandez on 04-09-2022 Hematocrit (Bld) [Volume fraction] 33.6 % 38.8-50.0 [facility] Laboratory - Hematology and Cell countsOrdered By: Lupe Hernandez on 04-09-2022 Nucleated RBC/100 WBC (Bld) [Ratio] 0.2 % 0-0.5 [facility] Lymphocytes Auto (Bld) [#/Vo l]Ordered By: Lupe Hernandez on 04-09-2022 Lymphocytes (Bld) [#/Vol] 1.0 10*3/uL 1.00-4.8 [facility] Lymphocytes/100 WBC Auto (Bl d)Ordered By: Lupe Hernandez on 04-09-2022 Lymphocytes/100 WBC (Bld) 18.3 % . [facility] MCH Auto (RBC) [Entitic mass ]Ordered By: Lupe Hernandez on 04-09-2022 MCH (RBC) [Entitic mass] 31.1 pg 27.5-35.2 [facility] MCHC Auto (RBC) [Mass/Vol]Or dered By: Lupe Hernandez on 04-09-2022 MCHC (RBC) [Mass/Vol] 33.5 g/dL 32.5-35.6 [facility] MCV Auto (RBC) [Entitic vol] Ordered By: Lupe Hernandez on 04-09-2022 MCV (RBC) [Entitic vol] 93.0 fL 83.5-101 [facility] Monocytes Auto (Bld) [#/Vol] Ordered By: Lupe Hernandez on 04-09-2022 Monocytes (Bld) [#/Vol] 0.6 10*3/uL 0.0-0.8 [facility] Monocytes/100 WBC Auto (Bld) Ordered By: Lupe Hernandez on 04-09-2022 Monocytes/100 WBC (Bld) 11.0 % . [facility] Neutrophils Auto (Bld) [#/Vo l]Ordered By: Lupe Hernandez on 04-09-2022 Neutrophils (Bld) [#/Vol] 3.4 10*3/uL 1.8-7.7 [facility] Neutrophils/100 WBC Auto (Bl d)Ordered By: Lupe Hernandez on 04-09-2022 Neutrophils/100 WBC (Bld) 63.8 % . [facility] No Panel InformationOrdered By: Lupe Hernandez on 04-09-2022 Bedside Glucose Comment Glu2: cleaned meter [facility] Estimated GFR () > 60 mL/Min [facility] Comment on above: GFR estimated refere nce range: According to KDOQI guidelines, <60 ml/min/1.73m2 is sufficient to diagnose a patient with chronic kidney disease. Pharmacy Creatinine Clearance (Chem 130.27 [facility] Platelet mean volume Auto (B ld) [Entitic vol]Ordered By: Lupe Hernandez on 04-09-2022 Platelet mean volume (Bld) [Entitic vol] 7.6 fL 6.6-10.1 [facility] Platelets Auto (Bld) [#/Vol] Ordered By: Lupe Hernandez on 04-09-2022 Platelets (Bld) [#/Vol] 214 10*3/uL 150-450 [facility] Protein [Mass/volume] in Ser um or PlasmaOrdered By: Lupe Hernandez on 04-09-2022 Protein [Mass/Vol] 6.1 g/dL 6.1-7.9 [facility] RBC Auto (Bld) [#/Vol]Ordere d By: Lupe Hernandez on 04-09-2022 RBC (Bld) [#/Vol] 3.61 10*6/uL 3.90-5.60 [facility] Serum or plasma alanine vivas otransferase measurement without P-5'-P (enzymatic activiOrdered By: Lupe Hernandez on 04-09-2022 ALT No additional P-5'-P [Catalytic activity/Vol] 21 U/L 10-60 [facility] Serum or plasma albumin/glob ulin mass ratioOrdered By: Lupe Hernandez on 04-09-2022 Albumin/Globulin [Mass ratio] 0.5 {ratio} [facility] Serum or plasma alkaline dilan sphatase measurement (enzymatic activity/volume)Ordered By: Lupe Hernandez on 04-09-2022 ALP [Catalytic activity/Vol] 89 U/L 32-92 [facility] Serum or plasma anion gap de terminationOrdered By: Lupe Hernandez on 04-09-2022 Anion gap [Moles/Vol] 8.4 mmol/L 6.0-15.0 [facility] Serum or plasma aspartate am inotransferase measurement (enzymatic activity/volume)Ordered By: Lupe Hernandez on 04-09-2022 AST [Catalytic activity/Vol] 27 U/L 10-42 [facility] Serum or plasma calcium osbaldo urement (mass/volume)Ordered By: Lupe Hernandez on 04-09-2022 Calcium [Mass/Vol] 8.2 mg/dL 8.2-10.2 [facility] Serum or plasma chloride judith surement (moles/volume)Ordered By: Lupe Hernandez on 04-09-2022 Chloride [Moles/Vol] 98 mmol/L 95-114 [facility] Serum or plasma glucose osbaldo urement (mass/volume)Ordered By: Lupe Hernandez on 04-09-2022 Glucose [Mass/Vol] 150 mg/dL 70-100 [facility] Comment on above: ADA recommended refe rence range Random Glucose Reference Range is dependent on time and content of last meal. Glucose of more than 200 mg/dL in a nonstressed, ambulatory subject supports the diagnosis of Diabetes Mellitus. Serum or plasma potassium me asurement (moles/volume)Ordered By: Lupe Hernandez on 04-09-2022 Potassium [Moles/Vol] 3.4 mmol/L 3.5-5.1 [facility] Serum or plasma sodium measu rement (moles/volume)Ordered By: Lupe Hernandez on 04-09-2022 Sodium [Moles/Vol] 134 mmol/L 136-146 [facility] Serum or plasma total biliru bin measurement (mass/volume)Ordered By: Lupe Hernandez on 04-09-2022 Bilirubin [Mass/Vol] 0.7 mg/dL 0.3-1.2 [facility] Serum or plasma total carbon dioxide measurement (moles/volume)Ordered By: Lupe Hernandez on 04-09-2022 CO2 [Moles/Vol] 31.0 mmol/L 22.0-30.0 [facility] Serum or plasma urea nitroge n measurement (mass/volume)Ordered By: Lupe Hernandez on 04-09-2022 Urea nitrogen [Mass/Vol] 9 mg/dL 9- [facility] Bacterial blood cultureOrder ed By: Luke Moran on 04-07-2022 Bacteria identified Cx Nom (Bld) NO GROWTH 5 DAYS [facility] Laboratory - Chemistry and C hemistry - challengeOrdered By: Luke Moran on 08-25-2022 CO2 [Moles/Vol] 29.4 mmol/L 23.0-27.0 [facility] HCO3 (Bld) [Moles/Vol] 28.1 mmol/L 23.0-29.0 [facility] No Panel InformationOrdered By: Luke Moran on 04-04-2022 Arterial Blood Base Excess 3.4 mmol/L -3.0-3.0 [facility] Arterial Blood Oxygen Content 6.4 mmol/L 6.6-9.7 [facility] Arterial Blood Oxygen Saturation 92.1 % 95.0-100.0 [facility] Arterial Blood Partial Pressure CO2 43.2 mm[Hg] 35.0-45.0 [facility] Arterial Blood Partial Pressure O2 61.4 mm[Hg] 80.0-100.0 [facility] Arterial Blood pH 7.43 7.35-7.45 [facility] Blood Gas Critical Value See comment [facility] Comment on above: Critical Value kaufman d on: 04/04/2022 at 09:33 Blood Gas Liter Flow 2 L/min [facility] Blood Gas Sample Site Left radial [facility] FiO2 28 % [facility] Oxygen Delivery Device Nasal cannula [facility] Automated erythrocytes count in urine sediment (number/area)Ordered By: Jair Gabriel on 04-03-2022 RBC Auto (Urine sed) [#/Area] 3-4 [HPF] 0-4 [facility] Automated leukocytes count i n urine sediment (number/area)Ordered By: Jair Gabriel on 04-03-2022 WBC Auto (Urine sed) [#/Area] None seen [HPF] 0-4 [facility] Bilirubin Test strip Ql (U)O rdered By: Jair Gabriel on 04-03-2022 Bilirubin Ql (U) Negative Negative [facility] Color Auto (U)Ordered By: Tam Gabriel on 04-03-2022 Color (U) Yellow Yellow [facility] Hepatitis B virus surface Ag [Presence] in Serum or Plasma by ImmunoassayOrdered By: Luke Moran on 04-03-2022 HBV surface Ag IA Ql Negative Negative [facility] Comment on above: Performed at: [facility] [address] [id number] [employer] Finisher: Gnearo Becerril PhD, Phone: [phone] IgA [Mass/volume] in Serum o r PlasmaOrdered By: Luke Moran on 04-03-2022 IgA [Mass/Vol] 697 mg/dL 61-437 [facility] IgG [Mass/volume] in Serum o r PlasmaOrdered By: Luke Moran on 04-03-2022 IgG [Mass/Vol] 1107 mg/dL 603-1613 [facility] IgM [Mass/volume] in Serum o r PlasmaOrdered By: Luke Moran on 04-03-2022 IgM [Mass/Vol] 91 mg/dL 20-172 [facility] Comment on above: Performed at: [facility] [employer] [address] [id number] [employer] Finisher: Genaro Becerril PhD, Phone: [phone] Immunofixation for UrineOrde red By: Luke Moran on 04-03-2022 Interpretation Immunofixation (U) [Interp] See comment . [facility] Comment on above: No monoclonality det ected. Performed at: [facility] [id number] [employer] Finisher: Genaro Becerril PhD, Phone: [phone] Immunoglobulin light chains. kappa.free [Mass/volume] in SerumOrdered By: Luke Moran on 04-03-2022 Immunoglobulin light chains.kappa.free (S) [Mass/Vol] 93.9 mg/L 3.3-19.4 [facility] Immunoglobulin light chains. kappa.free/Immunoglobulin light chains.lambda.free [MassOrdered By: Luke Moran on 04-03-2022 Immunoglobulin light chains.kappa.free/Immuno globulin light chains.lambda.free (S) [Mass ratio] 1.52 0.26-1.65 [facility] Comment on above: Performed at: [facility] [facility] [address] [id number] [employer] Finisher: Genaro Becerril PhD, Phone: [phone] Immunoglobulin light chains. lambda.free [Mass/volume] in Serum or PlasmaOrdered By: Luke Moran on 04-03-2022 Immunoglobulin light chains.lambda.free [Mass/Vol] 61.6 mg/L 5.7-26.3 [facility] Ketones Auto test strip (U) [Mass/Vol]Ordered By: Jair Gabriel on 04-03-2022 Ketones (U) [Mass/Vol] Negative Negative [facility] Laboratory - UrinalysisOrder ed By: Jair Gabriel on 04-03-2022 Hyaline casts LM Ql (Urine sed) 0-8 [LPF] 0-8 [facility] Nitrite Test strip Ql (U)Ord ered By: Jair Gabriel on 04-03-2022 Nitrite Ql (U) Negative Negative [facility] No Panel InformationOrdered By: Luke Moran on 04-03-2022 Hepatitis C Interpretation See comment . [facility] Comment on above: Negative Not infected with HCV, unless recent infection is suspected or other evidence exists to indicate HCV infection. Hepatitis C RNA Quantitative N/A [facility] Serum Immunofixation See comment . [facility] Comment on above: Immunofixation shows IgG monoclonal protein with lambda light chain specificity. Protein Auto test strip (U) [Mass/Vol]Ordered By: Jair Gabriel on 04-03-2022 Protein (U) [Mass/Vol] Negative Negative [facility] Random cortisol measurementO rdered By: Luke Moran on 04-03-2022 Cortisol [Mass/Vol] 5.8 ug/dL [facility] Comment on above: Reference range: AM 6 - 24 ug/dl PM <10 ug/dl Serum hepatitis B virus surf calin antibody detectionOrdered By: Luke Moran on 04-03-2022 HBV surface Ab Ql (S) Reactive . [facility] Comment on above: Non Reactive: Incons [...] IA [Rel units/Vol] 0.1 s/co ratio 0.0-0.9 [facility] Comment on above: --- 04/04/22 0736 -- - Hep C Ab previously reported as: <0.1 s/co ratio Specific gravity Auto test s trip (U) [Rel density]Ordered By: Jair Gabriel on 04-03-2022 Specific gravity (U) [Rel density] 1.035 1.001-1.030 [facility] Squamous epithelial cells de tection in urine sediment by light microscopyOrdered By: Jair Gabriel on 04-03-2022 Epithelial cells.squamous LM Ql (Urine sed) None seen [HPF] 0-2 [facility] TSH DL <= 0.005 mIU/L QnOrde red By: Luke Moran on 04-03-2022 TSH Qn 22.19 m[IU]/L 0.45-5.33 [facility] Urine bacteria detection by automated methodOrdered By: Jair Gabriel on 04-03-2022 Bacteria Auto Ql (U) None seen None Seen [facility] Urine clarity by refractomet ry automatedOrdered By: Jair Gabriel on 04-03-2022 Clarity Refractometry automated (U) Clear Clear [facility] Urine glucose measurement by automated test strip (mass/volume)Ordered By: Jair Gabriel on 04-03-2022 Glucose Auto test strip (U) [Mass/Vol] 100 mg/dL Normal [facility] Urine hemoglobin detection b y automated test stripOrdered By: Jair Gabriel on 04-03-2022 Hemoglobin Auto test strip Ql (U) 3+ Negative [facility] Urine leukocyte esterase det ection by automated test stripOrdered By: Jair Gabriel on 04-03-2022 Leukocyte esterase Auto test strip Ql (U) Negative Negative [facility] Urobilinogen Auto test strip (U) [Mass/Vol]Ordered By: Jair Gabriel on 04-03-2022 Urobilinogen (U) [Mass/Vol] Normal mg/dL Normal [facility] pH Auto test strip (U)Ordere d By: Jair Gabriel on 04-03-2022 pH (U) 5.0 [pH] 5.0-9.0 [facility] Activated partial thrombopla stin time (aPTT) in platelet poor plasma by coagulation aOrdered By: Jair Gabriel on 04-02-2022 aPTT Coag (PPP) [Time] 24.8 s 25.1-36.5 [facility] COVID-19 Positive/NegativeOr dered By: Jair Gabriel on 04-02-2022 SARS-CoV-2 (COVID-19) N gene MANJIT+probe Ql (Resp) Negative Negative [facility] Comment on above: Testing for SARS-CoV -2 by RT-PCR This test was developed and its performance characteristics determined by [employer] and validated at the [facility]. This test has not been FDA cleared [...] (COVID-19) Ag IA.rapid Ql (Resp) Negative Negative [facility] Comment on above: This is a duplicate Cristal SARS Antigen (GONZALO) result to be used for statistical tracking purpose only. Laboratory - Chemistry and C hemistry - challengeOrdered By: Jair Gabriel on 04-02-2022 Natriuretic peptide B (Bld) [Mass/Vol] 55.0 pg/mL 5-100 [facility] Laboratory - CoagulationOrde red By: Jair Gabriel on 04-02-2022 PT Coag (PPP) [Time] 11.9 s 9.0-12.9 [facility] No Panel InformationOrdered By: Luke Moran on 04-02-2022 D-Dimer Quantitative (PE/DVT) 2825 ng/mL 0-243 [facility] Comment on above: The reference range for [...] Jair Gabriel on 04-02-2022 SARS Antigen (LFIA) [facility] Platelet poor plasma interna tional normalized ratio (INR) by coagulation assay (relatOrdered By: Jair Gabriel on 04-02-2022 INR Coag (PPP) [Relative time] 1.1 {INR} [facility] Comment on above: INR Therapeutic Rang e [...] High sensitivity method [Mass/Vol] 26 pg/mL 0-20 [facility] Albumin [Mass/volume] in Ser um or PlasmaOrdered By: Sarah Osuna on 03-16-2022 Albumin [Mass/Vol] 1.9 g/dL 3.2-5.5 [facility] Creatinine and Glomerular fi ltration rate.predicted panel (S/P/Bld)Ordered By: Sarah Osuna on 03-16-2022 Creatinine [Mass/Vol] 1.27 mg/dL 0.64-1.27 [facility] Estimated glomerular filtrat ion rate (GFR) non- AmericanOrdered By: Sarah Osuna on 03-16-2022 GFR/1.73 sq M.predicted among non-blacks MDRD (S/P/Bld) [Vol rate/Area] 57 mL/Min [facility] Glucose Glucometer (BldC) [M ass/Vol]Ordered By: Xin Phan on 03-16-2022 Glucose [Mass/Vol] 377 mg/dL [facility] Comment on above: Random Glucose Refer ence Range is dependent on time and content of last meal. Glucose of more than 200 mg/dL in a nonstressed, ambulatory subject supports the diagnosis of Diabetes Mellitus. No Panel InformationOrdered By: Sarah Osuna on 03-16-2022 Estimated GFR () > 60 mL/Min [facility] Comment on above: GFR estimated refere nce range: According to KDOQI guidelines, <60 ml/min/1.73m2 is sufficient to diagnose a patient with chronic kidney disease. Pharmacy Creatinine Clearance (Chem 90.76 [facility] Serum or plasma calcium osbaldo urement (mass/volume)Ordered By: Sarah Osuna on 03-16-2022 Calcium [Mass/Vol] 8.4 mg/dL 8.2-10.2 [facility] Serum or plasma chloride judith surement (moles/volume)Ordered By: Sarah Osuna on 03-16-2022 Chloride [Moles/Vol] 99 mmol/L 95-114 [facility] Serum or plasma glucose osbaldo urement (mass/volume)Ordered By: Sarah Osuna on 03-16-2022 Glucose [Mass/Vol] 265 mg/dL 70-100 [facility] Comment on above: Delta: 480 on -1040 ADA recommended reference range Random Glucose Reference Range is dependent on time and content of last meal. Glucose of more than 200 mg/dL in a nonstressed, ambulatory subject supports the diagnosis of Diabetes Mellitus. Serum or plasma potassium me asurement (moles/volume)Ordered By: Xin Phan on 03-16-2022 Potassium [Moles/Vol] 4.0 mmol/L 3.5-5.1 [facility] Serum or plasma sodium measu rement (moles/volume)Ordered By: Sarah Osuna on 03-16-2022 Sodium [Moles/Vol] 132 mmol/L 136-146 [facility] Serum or plasma total carbon dioxide measurement (moles/volume)Ordered By: Sarah Osuna on 03-16-2022 CO2 [Moles/Vol] 25.4 mmol/L 22.0-30.0 [facility] Serum or plasma urea nitroge n measurement (mass/volume)Ordered By: Sarah Osuna on 03-16-2022 Urea nitrogen [Mass/Vol] 24 mg/dL 9-23 [facility] Serum phospholipid phosphoru s measurement (mass/volume)Ordered By: Xin Phan on 03-16-2022 Phospholipid phosphorus (S) [Mass/Vol] 2.0 mg/dL 2.5-4.6 [facility] No Panel InformationOrdered By: Xin Phan on 03-15-2022 Bedside Glucose Comment See comment [facility] Comment on above: Glu2: WILL NOTIFY DR /RN Bedside Glucose #2 Comment Cleaned meter [facility] Automated erythrocytes count in urine sediment (number/area)Ordered By: Sarah Osuna on 03-14-2022 RBC Auto (Urine sed) [#/Area] 0-1 [HPF] 0-4 [facility] Automated leukocytes count i n urine sediment (number/area)Ordered By: Sarah Osuna on 03-14-2022 WBC Auto (Urine sed) [#/Area] 0-1 [HPF] 0-4 [facility] Basophils Auto (Bld) [#/Vol] Ordered By: Leah Huang on 03-14-2022 Basophils (Bld) [#/Vol] 0.0 10*3/uL 0.0-0.2 [facility] Basophils/100 WBC Auto (Bld) Ordered By: Leah Huang on 03-14-2022 Basophils/100 WBC (Bld) 0.2 % . [facility] Bilirubin Auto test strip Ql (U)Ordered By: Sarah Osuna on 03-14-2022 Bilirubin Ql (U) Negative Negative [facility] Blood hemoglobin measurement (mass/volume)Ordered By: Leah Huang on 03-14-2022 Hemoglobin (Bld) [Mass/Vol] 11.6 g/dL 13.0-17.0 [facility] Blood leukocytes automated c ount (number/volume)Ordered By: Leah Huang on 03-14-2022 WBC (Bld) [#/Vol] 6.0 10*3/uL 4.5-11.0 [facility] Creatinine [Mass/volume] in UrineOrdered By: Sarah Osuna on 03-14-2022 Creatinine (U) [Mass/Vol] 76.9 mg/dL [facility] Comment on above: No reference range e stablished Eosinophils Auto (Bld) [#/Vo l]Ordered By: Leah Huang on 03-14-2022 Eosinophils (Bld) [#/Vol] 0.1 10*3/uL 0.0-0.45 [facility] Eosinophils/100 WBC Auto (Bl d)Ordered By: Leah Huang on 03-14-2022 Eosinophils/100 WBC (Bld) 1.4 % . [facility] Erythrocyte distribution wid th Auto (RBC) [Ratio]Ordered By: Leah Huang on 03-14-2022 Erythrocyte distribution width (RBC) [Ratio] 15.8 % 12.0-14.8 [facility] Globulin Calc (S) [Mass/Vol] Ordered By: Leah Huang on 03-14-2022 Globulin (S) [Mass/Vol] 3.8 g/dL [facility] Glucose mean value [Mass/vol ume] in Blood Estimated from glycated hemoglobinOrdered By: Leah Huang on 03-14-2022 Average glucose Estimated from glycated hemoglobin (Bld) [Mass/Vol] 329 mg/dL [facility] Hematocrit Auto (Bld) [Volum e fraction]Ordered By: Leah Huang on 03-14-2022 Hematocrit (Bld) [Volume fraction] 35.1 % 38.8-50.0 [facility] Hemoglobin A1c percentageOrd ered By: Leah Huang on 03-14-2022 HbA1c (Bld) [Mass fraction] 13.1 % 4.3-5.6 [facility] Comment on above: Increased risk for d iabetes: 5.7 - 6.4 diabetes: >6.4 glycemic control for adults with diabetes: <7.0 Ketones Auto test strip (U) [Mass/Vol]Ordered By: Sarah Osuna on 03-14-2022 Ketones (U) [Mass/Vol] Negative Negative [facility] Laboratory - Hematology and Cell countsOrdered By: Leah Huang on 03-14-2022 Nucleated RBC/100 WBC (Bld) [Ratio] 0.1 % 0-0.5 [facility] Laboratory - UrinalysisOrder ed By: Sarah Osuna on 03-14-2022 Hyaline casts LM Ql (Urine sed) 0-8 [LPF] 0-8 [facility] Lymphocytes Auto (Bld) [#/Vo l]Ordered By: Leah Huang on 03-14-2022 Lymphocytes (Bld) [#/Vol] 1.4 10*3/uL 1.00-4.8 [facility] Lymphocytes/100 WBC Auto (Bl d)Ordered By: Leah Huang on 03-14-2022 Lymphocytes/100 WBC (Bld) 22.7 % . [facility] MCH Auto (RBC) [Entitic mass ]Ordered By: Leah Huang on 03-14-2022 MCH (RBC) [Entitic mass] 29.9 pg 27.5-35.2 [facility] MCHC Auto (RBC) [Mass/Vol]Or dered By: Leah Huang on 03-14-2022 MCHC (RBC) [Mass/Vol] 33.0 g/dL 32.5-35.6 [facility] MCV Auto (RBC) [Entitic vol] Ordered By: Leah Huang on 03-14-2022 MCV (RBC) [Entitic vol] 90.4 fL 83.5-101 [facility] Monocytes Auto (Bld) [#/Vol] Ordered By: Leah Huang on 03-14-2022 Monocytes (Bld) [#/Vol] 0.5 10*3/uL 0.0-0.8 [facility] Monocytes/100 WBC Auto (Bld) Ordered By: Leah Huang on 03-14-2022 Monocytes/100 WBC (Bld) 9.0 % . [facility] Neutrophils Auto (Bld) [#/Vo l]Ordered By: Leah Huang on 03-14-2022 Neutrophils (Bld) [#/Vol] 4.0 10*3/uL 1.8-7.7 [facility] Neutrophils/100 WBC Auto (Bl d)Ordered By: Leah Huang on 03-14-2022 Neutrophils/100 WBC (Bld) 66.7 % . [facility] Platelet mean volume Auto (B ld) [Entitic vol]Ordered By: Leah Huang on 03-14-2022 Platelet mean volume (Bld) [Entitic vol] 8.9 fL 6.6-10.1 [facility] Platelets Auto (Bld) [#/Vol] Ordered By: Leah Huang on 03-14-2022 Platelets (Bld) [#/Vol] 143 10*3/uL 150-450 [facility] Protein Auto test strip (U) [Mass/Vol]Ordered By: Sarah Osuna on 03-14-2022 Protein (U) [Mass/Vol] Negative Negative [facility] Protein [Mass/volume] in Ser um or PlasmaOrdered By: Leah Huang on 03-14-2022 Protein [Mass/Vol] 5.8 g/dL 6.1-7.9 [facility] Protein [Mass/volume] in Uri neOrdered By: Sarah Osuna on 03-14-2022 Protein (U) [Mass/Vol] 13 mg/dL 0-9 [facility] RBC Auto (Bld) [#/Vol]Ordere d By: Leah Huang on 03-14-2022 RBC (Bld) [#/Vol] 3.88 10*6/uL 3.90-5.60 [facility] Serum or plasma alanine vivas otransferase measurement without P-5'-P (enzymatic activiOrdered By: Leah Huang on 03-14-2022 ALT No additional P-5'-P [Catalytic activity/Vol] 35 U/L 10-60 [facility] Serum or plasma albumin/glob ulin mass ratioOrdered By: Leah Huang on 03-14-2022 Albumin/Globulin [Mass ratio] 0.5 {ratio} [facility] Serum or plasma alkaline dilan sphatase measurement (enzymatic activity/volume)Ordered By: Leah Huang on 03-14-2022 ALP [Catalytic activity/Vol] 120 U/L 32-92 [facility] Serum or plasma aspartate am inotransferase measurement (enzymatic activity/volume)Ordered By: Leah Huang on 03-14-2022 AST [Catalytic activity/Vol] 36 U/L 10-42 [facility] Serum or plasma total biliru bin measurement (mass/volume)Ordered By: Leah Huang on 03-14-2022 Bilirubin [Mass/Vol] 1.0 mg/dL 0.3-1.2 [facility] Squamous epithelial cells de tection in urine sediment by light microscopyOrdered By: Sarah Osuna on 03-14-2022 Epithelial cells.squamous LM Ql (Urine sed) None seen [HPF] 0-2 [facility] Urea nitrogen [Mass/volume] in UrineOrdered By: Leah Huang on 03-14-2022 Urea nitrogen (U) [Mass/Vol] 454 mg/dL Not Estab. [facility] Comment on above: Performed at: [address] [id number] [employer]: Genaro Becerril PhD, Phone: [phone] Urine appearanceOrdered By: Sarah Osuna on 03-14-2022 Appearance (U) Clear Clear [facility] Urine bacteria detection by automated methodOrdered By: Sarah Osuna on 03-14-2022 Bacteria Auto Ql (U) None seen None Seen [facility] Urine colorOrdered By: Sarah Osuna on 03-14-2022 Color (U) Yellow Yellow [facility] Urine glucose measurement by automated test strip (mass/volume)Ordered By: Sarah Osuna on 03-14-2022 Glucose Auto test strip (U) [Mass/Vol] >=1000 mg/dL Normal [facility] Urine hemoglobin detection b y automated test stripOrdered By: Sarah Osuna on 03-14-2022 Hemoglobin Auto test strip Ql (U) 2+ Negative [facility] Urine leukocyte esterase det ection by automated test stripOrdered By: Sarah Osuna on 03-14-2022 Leukocyte esterase Auto test strip Ql (U) Negative Negative [facility] Urine nitrite detection by a utomated test stripOrdered By: Sarah Osuna on 03-14-2022 Nitrite Auto test strip Ql (U) Negative Negative [facility] Urine protein/creatinine rat ioOrdered By: Sarah Osuna on 03-14-2022 Protein/Creatinine (U) [Ratio] 169 mg/g{Cre} 0-200 [facility] Urine sodium measurement (mo les/volume)Ordered By: Leah Huang on 03-14-2022 Sodium (U) [Moles/Vol] 20 mmol/L [facility] Comment on above: No reference range e stablished Urobilinogen Auto test strip (U) [Mass/Vol]Ordered By: Sarah Osuna on 03-14-2022 Urobilinogen (U) [Mass/Vol] Normal mg/dL Normal [facility] Yeast detection in urine sed iment by light microscopyOrdered By: Sarah Osuna on 03-14-2022 Yeast LM Ql (Urine sed) Budding yeast [HPF] Non e Seen [facility] Comment on above: 1+ BUDDING YEAST pH Auto test strip (U)Ordere d By: Sarah Osuna on 03-14-2022 pH (U) 1.020 [pH] 1.001-1.030 [facility] pH (U) 5.5 [pH] 5.0-9.0 [facility] POINT OF CARE GLUCOSEon 01-10 Glucose [Mass/Vol] 161 mg/dL Critically high 74-[address] [facility] Comment on above: Performed By: #### T , BMP #### [facility] [address] [place] [address] Dr. Ladan Diehl POINT OF CARE GLUCOSEon 01-09 Glucose [Mass/Vol] 358 mg/dL Critically high -106 [facility] Comment on above: Performed By: #### A 1C #### [facility] [address] [place] [address] Dr. Ladan Diehl Glucose [Mass/Vol] 279 mg/dL Critically high -106 [facility] Comment on above: Performed By: #### A 1C #### [facility] [address] [place] [address] Dr. Ladan Diehl Glucose [Mass/Vol] 247 mg/dL Critically high [facility]106 [facility] Comment on above: Performed By: #### T SH, BMP #### [facility] [address] [place] [address] Dr. Ladan Diehl Glucose [Mass/Vol] 357 mg/dL Critically high -106 [facility] Comment on above: Performed By: #### A 1C #### [facility] [address] [place] [address] Dr. Ladan Diehl PROF CHEM 8 (BAS METB)on Anion gap [Moles/Vol] 11.1 mmol/L Normal [facility] Comment on above: Performed By: #### T STEFF, BMP #### [facility] [address] [place] [address] Dr. Ladan Diehl Calcium [Mass/Vol] 8.8 mg/dL Normal 8.5-10.1 [facility] Comment on above: Performed By: #### T SH, BMP #### [facility] [address] [place] [address] Dr. Ladan Diehl Chloride [Moles/Vol] 99 mmol/L Normal 98-107 [facility] Comment on above: Performed By: #### T SH, BMP #### [facility] [address] [place] [address] Dr. Ladan Diehl CO2 [Moles/Vol] 27.2 mmol/L Normal 21.0-32.0 [facility] Comment on above: Performed By: #### T SH, BMP #### [facility] [address] [address] [address] Ladan Diehl Creatinine [Mass/Vol] 1.59 mg/dL Critically high 0.70-1.30 [facility] Comment on above: Performed By: #### T SH, BMP #### [facility] [address] [address] [address] Ladan Diehl EGFR-AF QATARI 53 mL/min/1.73m2 Critically low >=60 [facility] Comment on above: Performed By: #### T SH, BMP #### [facility] [address] [address] [address] Ladan Diehl EGFR-NON AF QATARI 44 mL/min/1.73m2 Critically low >=60 [facility] Comment on above: Performed By: #### T SH, BMP #### [facility] [address] [place] [address] Dr. Ladan Diehl Glucose [Mass/Vol] 284 mg/dL Critically high 74-106 [facility] Comment on above: Performed By: #### T SH, BMP #### [facility] [address] [place] [address] Dr. Ladan Diehl Potassium [Moles/Vol] 4.2 mmol/L Normal 3.5-5.1 [facility] Comment on above: Performed By: #### T SH, BMP #### [facility] [address] [place] [address] Dr. Ladan Diehl Sodium [Moles/Vol] 133 mmol/L Critically low 136-145 [facility] Comment on above: Performed By: #### T SH, BMP #### [facility] [address] [place] [address] Dr. Ladan Diehl Urea nitrogen [Mass/Vol] 22.0 mg/dL Critically high 7.0-18 .0 [facility] Comment on above: Performed By: #### T SH, BMP #### [facility] [address] [place] [address] Dr. Ladan Diehl Urea nitrogen/Creatinine [Mass ratio] 13.8 mg/mg Normal [facility] Comment on above: Performed By: #### T SH, BMP #### [facility] [address] [address] [address] Ladan Diehl TROPONIN, HIGH SENSITIVITYon 01-24-2022 HSTROP 13.7 pg/mL Normal 4.0-76.1 [facility] Comment on above: Result Comment: CUT- OFF POINTS HAVE BEEN ESTABLISHED BASED ON THE FOURTH UNIVERSAL DEFINITIONS OF MYOCARDIAL INFARCTION. THE UPPER REFERENCE LIMIT (URL) OF TROPONIN, DEFINED THE 99TH PERCENTILE OF cTnI DISTRIBUTION IN A REFERENCE POPULATION, HAS BEEN CONFIRMED THE DECISION THRESHOLD FOR NM DIAGNOSIS. Performed By: #### H STROPN #### [facility] [address] [address] [address] Ladan Diehl TSHon 01-24-2022 TSH 0.381 uIU/mL Normal 0.358-3.740 [facility] Comment on above: Performed By: #### T SH, BMP #### [facility] [address] [place] [address] Dr. Ladan Diehl US LIT DOP LEG [...] CAROL YIP Date: 2022-01-24 09:51 Normal [facility] BNPon 01-23-2022 Natriuretic peptide B (Bld) [Mass/Vol] 262.0 pg/mL Normal <=900.0 [facility] Comment on above: Performed By: #### A 1C #### [facility] [address] [place] [address] Dr. Ladan Diehl CBC AUTO DIFFon 01-23-2022 BASO # 0.1 103/ul Normal 0.0-0.1 [facility] Comment on above: Performed By: #### T SH, BMP #### [facility] [address] [place] [address] Dr. Ladan Diehl Basophils/100 WBC (Bld) 0.8 % Normal 0.2-2.0 [facility] Comment on above: Performed By: #### T SH, BMP #### [facility] [address] [place] [address] Dr. Ladan Diehl EO # 0.3 103/ul Normal 0.0-0.7 [facility] Comment on above: Performed By: #### T SH, BMP #### [facility] [address] [place] [address] Dr. Ladan Diehl Eosinophils/100 WBC (Bld) 4.4 % Normal 0.9-7.0 [facility] Comment on above: Performed By: #### T SH, BMP #### [facility] [address] [place] [address] Dr. Ladan Diehl Erythrocyte distribution width (RBC) [Ratio] 14.0 % Normal 11.0-15.0 [facility] Comment on above: Performed By: #### T SH, BMP #### [facility] [address] [place] [address] Dr. Ladan Diehl Hematocrit (Bld) [Volume fraction] 38.3 % Critically low 42.0-54.0 [facility] Comment on above: Performed By: #### T SH, BMP #### [facility] [address] [place] [address] Dr. Ladan Diehl Hemoglobin (Bld) [Mass/Vol] 12.0 g/dL Critically low 14.0-18.0 [facility] Comment on above: Performed By: #### T SH, BMP #### [facility] [address] [place] [address] Dr. Ladan Diehl IG # 0.03 10e3/ul Normal 0.00-0.03 [facility] Comment on above: Performed By: #### T SH, BMP #### [facility] [address] [place] [address] Dr. Ladan Diehl IG % 0.5 % Normal 0.0-0.5 [facility] Comment on above: Performed By: #### T SH, BMP #### [facility] [address] [address] [address] Ladan Diehl LYMPH # 1.2 103/ul Normal 1.2-3.8 [facility] Comment on above: Performed By: #### T SH, BMP #### [facility] [address] [place] [address] Dr. Ladan Diehl Lymphocytes/100 WBC (Bld) 20.2 % Critically low 20.5-60.0 [facility] Comment on above: Performed By: #### T SH, BMP #### [facility] [address] [place] [address] Dr. Ladan Diehl MANUAL DIFF REQ NO Normal [facility] Comment on above: Performed By: #### T SH, BMP #### [facility] [address] [place] [address] Dr. Ladan Diehl MCH (RBC) [Entitic mass] 29.6 pg Normal 25.9-34.0 [facility] Comment on above: Performed By: #### T SH, BMP #### [facility] [address] [place] [address] Dr. Ladan Diehl MCHC (RBC) [Mass/Vol] 31.3 g/dL Normal 29.9-35.2 [facility] Comment on above: Performed By: #### T SH, BMP #### [facility] [address] [place] [address] Dr. Ladan Diehl MCV (RBC) [Entitic vol] 94.6 fL Critically high 80.0-94 .0 [facility] Comment on above: Performed By: #### T SH, BMP #### [facility] [address] [place] [address] Dr. Ladan Diehl MONO # 0.7 103/ul Normal 0.3-0.8 [facility] Comment on above: Performed By: #### T SH, BMP #### [facility] [address] [place] [address] Dr. Ladan Diehl Monocytes/100 WBC (Bld) 10.7 % Normal 1.7-12.0 [facility] Comment on above: Performed By: #### T SH, BMP #### [facility] [address] [place] [address] Dr. Ladan Diehl NEUT # 3.9 103/ul Normal 1.4-6.5 [facility] Comment on above: Performed By: #### T SH, BMP #### [facility] [address] [place] [address] Dr. Ladan Diehl Neutrophils/100 WBC (Bld) 63.4 % Normal 43.0-75.0 [facility] Comment on above: Performed By: #### T SH, BMP #### [facility] [address] [place] [address] Dr. Ladan Diehl Platelet mean volume (Bld) [Entitic vol] 10.0 fL Normal 9.5-13.5 [facility] Comment on above: Performed By: #### T SH, BMP #### [facility] [address] [place] [address] Dr. Ladan Diehl PLT 171 103/ul Normal 150-450 [facility] Comment on above: Performed By: #### T SH, BMP #### [facility] [address] [place] [address] Dr. Ladan Diehl RBC 4.05 106/ul Critically low 4.70-6.10 [facility] Comment on above: Performed By: #### T SH, BMP #### [facility] [address] [place] [address] Dr. Ladan Diehl WBC 6.1 103/ul Normal 4.0-11.0 [facility] Comment on above: Performed By: #### T SH, BMP #### [facility] [address] [place] [address] Dr. Ladan Diehl CTA CHEST WO W [...] XIN BUI Date: 2022-01-23 19:35 Normal [facility] Covid-19 PCR (CVDTB)on 01-09 SARS-CoV-2 (COVID-19) RNA MANJIT+probe Ql (Unsp spec) Not detected Normal NOT DETECTED [facility] Comment on above: Result Comment: When [...] for this test is supported by the [employer] of Health and Human Service's declaration that [...] used). Performed By: #### A 1C #### [facility] [address] [place] [address] Dr. Ladan Diehl LACTATE/LACTIC ACIDon 2021 Lactate [Moles/Vol] 1.6 mmol/L Normal 0.4-1.9 [facility] Comment on above: Performed By: #### L ACT #### [facility] [address] [place] [address] Dr. Ladan Diehl PROF 14(COMP METB)on 022 Albumin [Mass/Vol] 2.7 g/dL Critically low 3.4-5.0 [facility] Comment on above: Performed By: #### A 1C #### [facility] [address] [place] [address] Dr. Ladan Diehl Albumin/Globulin [Mass ratio] 0.5 {ratio} Normal [facility] Comment on above: Performed By: #### A 1C #### [facility] [address] [place] [address] Dr. Ladan Diehl ALP [Catalytic activity/Vol] 120 U/L Critically high 46-116 [facility] Comment on above: Performed By: #### A 1C #### [facility] [address] [place] [address] Dr. Ladan Diehl ALT [Catalytic activity/Vol] 23 U/L Normal 16-63 [facility] Comment on above: Performed By: #### A 1C #### [facility] [address] [place] [address] Dr. Ladan Diehl Anion gap [Moles/Vol] 10.3 mmol/L Normal [facility] Comment on above: Performed By: #### A 1C #### [facility] [address] [place] [address] Dr. Ladan Diehl AST [Catalytic activity/Vol] 29 U/L Normal 15-37 [facility] Comment on above: Performed By: #### A 1C #### [facility] [address] [place] [address] Dr. Ladan Deihl Bilirubin [Mass/Vol] 1.0 mg/dL Normal 0.2-1.0 [facility] Comment on above: Performed By: #### A 1C #### [facility] [address] [address] [address] Ladan Diehl Calcium [Mass/Vol] 8.8 mg/dL Normal 8.5-10.1 [facility] Comment on above: Performed By: #### A 1C #### [facility] [address] [address] [address] Ladan Diehl Chloride [Moles/Vol] 101 mmol/L Normal 98-107 [facility] Comment on above: Performed By: #### A 1C #### [facility] [address] [address] [address] Ladan Diehl CO2 [Moles/Vol] 30.8 mmol/L Normal 21.0-32.0 [facility] Comment on above: Performed By: #### A 1C #### [facility] [address] [place] [address] Dr. Ladan Diehl Creatinine [Mass/Vol] 1.40 mg/dL Critically high 0.70-1.30 [facility] Comment on above: Performed By: #### A 1C #### [facility] [address] [address] [address] Ladan Diehl EGFR-AF QATARI >60 Normal >=60 [facility] Comment on above: Performed By: #### A 1C #### [facility] [address] [place] [address] Dr. Ladan Diehl EGFR-NON AF QATARI 51 mL/min/1.73m2 Critically low >=60 [facility] Comment on above: Performed By: #### A 1C #### [facility] [address] [place] [address] Dr. Ladan Diehl Globulin (S) [Mass/Vol] 5.3 g/dL Normal [facility] Comment on above: Performed By: #### A 1C #### [facility] [address] [place] [address] Dr. Ladan Diehl Glucose [Mass/Vol] 125 mg/dL Critically high 74-106 [facility] Comment on above: Performed By: #### A 1C #### [facility] [address] [place] [address] Dr. Ladan Diehl Potassium [Moles/Vol] 4.1 mmol/L Normal 3.5-5.1 [facility] Comment on above: Performed By: #### A 1C #### [facility] [address] [place] [address] Dr. Ladan Diehl Protein [Mass/Vol] 8.0 g/dL Normal 6.4-8.2 [facility] Comment on above: Performed By: #### A 1C #### [facility] [address] [address] [address] Ladan Diehl Sodium [Moles/Vol] 138 mmol/L Normal 136-145 [facility] Comment on above: Performed By: #### A 1C #### [facility] [address] [place] [address] Dr. Ladan Diehl Urea nitrogen [Mass/Vol] 20.0 mg/dL Critically high 7.0-18 .0 [facility] Comment on above: Performed By: #### A 1C #### [facility] [address] [place] [address] Dr. Ladan Diehl Urea nitrogen/Creatinine [Mass ratio] 14.3 mg/mg Normal [facility] Comment on above: Performed By: #### A 1C #### [facility] [address] [place] [address] Dr. Ladan Diehl PROTIMEon 01-23-2022 INR Coag (PPP) [Relative time] 1.02 {INR} Normal [facility] Comment on above: Performed By: #### P T, PTT #### [facility] [address] [place] [address] Dr. Ladan Diehl INR GUIDELINES SEE BELOW Normal [facility] Comment on above: Result Comment: KALI RED INR: 2.0 - 3.0 CONDITIONS NOT LISTED BELOW 2.5 - 3.5 FOR PROSTHETIC HEART VALVE REPLACEMENT 2.5 - 3.5 RECURRENT THROMBOSIS Performed By: #### P T, PTT #### [facility] [address] [place] [address] Dr. Ladan Diehl PT Coag (PPP) [Time] 11.0 s Normal 9.0-11.6 [facility] Comment on above: Performed By: #### P T, PTT #### [facility] [address] [place], [place] [address] Dr. Ladan Diehl PTTon 01-23-2022 aPTT Coag (Bld) [Time] 27.6 s Normal 22.3-36.2 [facility] Comment on above: Performed By: #### P T, PTT #### [facility] [address] [address] [address] Ladan Diehl TROPONIN, HIGH SENSITIVITYon 01-23-2022 HSTROP 10.4 pg/mL Normal 4.0-76.1 [facility] Comment on above: Result Comment: CUT- OFF POINTS HAVE BEEN ESTABLISHED BASED ON THE FOURTH UNIVERSAL DEFINITIONS OF MYOCARDIAL INFARCTION. THE UPPER REFERENCE LIMIT (URL) OF TROPONIN, DEFINED THE 99TH PERCENTILE OF cTnI DISTRIBUTION IN A REFERENCE POPULATION, HAS BEEN CONFIRMED THE DECISION THRESHOLD FOR NM DIAGNOSIS. Performed By: #### A 1C #### [facility] [address] [place] [address] ABD/PELV W CONon [...] TANNER PEDRAZA Date: 2022-01-18 23:39 Normal [facility] XR CHEST 1 Von 01-19-2022 XR [...] ROSELIA RIVERA Date: 2022-01-18 22:16 Normal [facility] XR KNEE LT 4V or >on [...] JENNIFER CASTILLO Date: 2022-01-18 23:06 Normal [facility] CBC AUTO DIFFon 01-18-2022 BASO # 0.1 103/ul Normal 0.0-0.1 [facility] Comment on above: Performed By: #### C BC #### [facility] [address] [address] [address] Ladan Diehl Basophils/100 WBC (Bld) 0.8 % Normal 0.2-2.0 [facility] Comment on above: Performed By: #### C BC #### [facility] [address] [address] [address] Ladan Diehl EO # 0.4 103/ul Normal 0.0-0.7 [facility] Comment on above: Performed By: #### C BC #### [facility] [address] [place] [address] Dr. Ladan Diehl Eosinophils/100 WBC (Bld) 4.3 % Normal 0.9-7.0 [facility] Comment on above: Performed By: #### C BC #### [facility] [address] [place] [address] Dr. Ladan Diehl Erythrocyte distribution width (RBC) [Ratio] 14.4 % Normal 11.0-15.0 [facility] Comment on above: Performed By: #### C BC #### [facility] [address] [place] [address] Dr. Ladan Diehl Hematocrit (Bld) [Volume fraction] 37.2 % Critically low 42.0-54.0 [facility] Comment on above: Performed By: #### C BC #### [facility] [address] [place] [address] Dr. Ladan Diehl Hemoglobin (Bld) [Mass/Vol] 11.9 g/dL Critically low 14.0-18.0 [facility] Comment on above: Performed By: #### C BC #### [facility] [address] [place] [address] Dr. Ladan Diehl IG # 0.04 10e3/ul Critically high 0.00-0.03 [facility] Comment on above: Performed By: #### C BC #### [facility] [address] [place] [address] Dr. Ladan Diehl IG % 0.5 % Normal 0.0-0.5 [facility] Comment on above: Performed By: #### C BC #### [facility] [address] [place] [address] Dr. Ladan Diehl LYMPH # 2.2 103/ul Normal 1.2-3.8 [facility] Comment on above: Performed By: #### C BC #### [facility] [address] [place] [address] Dr. Ladan Diehl Lymphocytes/100 WBC (Bld) 26.2 % Normal 20.5-60.0 [facility] Comment on above: Performed By: #### C BC #### [facility] [address] [place] [address] Dr. Ladan Diehl MANUAL DIFF REQ NO Normal [facility] Comment on above: Performed By: #### C BC #### [facility] [address] [place] [address] Dr. Ladan Diehl MCH (RBC) [Entitic mass] 30.4 pg Normal 25.9-34.0 [facility] Comment on above: Performed By: #### C BC #### [facility] [address] [place] [address] Dr. Ladan Diehl MCHC (RBC) [Mass/Vol] 32.0 g/dL Normal 29.9-35.2 [facility] Comment on above: Performed By: #### C BC #### [facility] [address] [place] [address] Dr. Ladan Diehl MCV (RBC) [Entitic vol] 94.9 fL Critically high 80.0-94 .0 [facility] Comment on above: Performed By: #### C BC #### [facility] [address] [place] [address] Dr. Ladan Diehl MONO # 0.9 103/ul Critically high 0.3-0.8 [facility] Comment on above: Performed By: #### C BC #### [facility] [address] [place] [address] Dr. Ladan Diehl Monocytes/100 WBC (Bld) 10.3 % Normal 1.7-12.0 [facility] Comment on above: Performed By: #### C BC #### [facility] [address] [place] [address] Dr. Ladan Diehl NEUT # 5.0 103/ul Normal 1.4-6.5 [facility] Comment on above: Performed By: #### C BC #### [facility] [address] [place] [address] Dr. Ladan Diehl Neutrophils/100 WBC (Bld) 57.9 % Normal 43.0-75.0 [facility] Comment on above: Performed By: #### C BC #### [facility] [address] [place] [address] Dr. Ladan Diehl Platelet mean volume (Bld) [Entitic vol] 9.9 fL Normal 9.5-13.5 [facility] Comment on above: Performed By: #### C BC #### [facility] [address] [place] [address] Dr. Ladan Diehl PLT 180 103/ul Normal 150-450 [facility] Comment on above: Performed By: #### C BC #### [facility] [address] [place] [address] Dr. Ladan Diehl RBC 3.92 106/ul Critically low 4.70-6.10 [facility] Comment on above: Performed By: #### C BC #### [facility] [address] [place] [address] Dr. Ladan Diehl WBC 8.6 103/ul Normal 4.0-11.0 [facility] Comment on above: Performed By: #### C BC #### [facility] [address] [place] [address] Dr. Ladan Diehl PROF 14(COMP METB)on 022 Albumin [Mass/Vol] 2.6 g/dL Critically low 3.4-5.0 [facility] Comment on above: Performed By: #### C MP #### [facility] [address] [place] [address] Dr. Ladan Diehl Albumin/Globulin [Mass ratio] 0.5 {ratio} Normal [facility] Comment on above: Performed By: #### C MP #### [facility] [address] [place] [address] Dr. Ladan Diehl ALP [Catalytic activity/Vol] 184 U/L Critically high 46-116 [facility] Comment on above: Performed By: #### C MP #### [facility] [address] [place] [address] Dr. Ladan Diehl ALT [Catalytic activity/Vol] 24 U/L Normal 16-63 [facility] Comment on above: Performed By: #### C MP #### [facility] [address] [place] [address] Dr. Ladan Diehl Anion gap [Moles/Vol] 10.1 mmol/L Normal [facility] Comment on above: Performed By: #### C MP #### [facility] [address] [place] [address] Dr. Ladan Diehl AST [Catalytic activity/Vol] 22 U/L Normal 15-37 [facility] Comment on above: Performed By: #### C MP #### [facility] [address] [address] [address] Ladan Diehl Bilirubin [Mass/Vol] 0.5 mg/dL Normal 0.2-1.0 [facility] Comment on above: Performed By: #### C MP #### [facility] [address] [address] [address] Ladan Diehl Calcium [Mass/Vol] 8.6 mg/dL Normal 8.5-10.1 [facility] Comment on above: Performed By: #### C MP #### [facility] [address] [place] [address] Dr. Ladan Diehl Chloride [Moles/Vol] 101 mmol/L Normal 98-107 [facility] Comment on above: Performed By: #### C MP #### [facility] [address] [address] [address] Ladan Diehl CO2 [Moles/Vol] 30.9 mmol/L Normal 21.0-32.0 [facility] Comment on above: Performed By: #### C MP #### [facility] [address] [place] [address] Dr. Ladan Diehl Creatinine [Mass/Vol] 1.72 mg/dL Critically high 0.70-1.30 [facility] Comment on above: Performed By: #### C MP #### [facility] [address] [address] [address] Ladan Diehl EGFR-AF QATARI 49 mL/min/1.73m2 Critically low >=60 [facility] Comment on above: Performed By: #### C MP #### [facility] [address] [place] [address] Dr. Ladan Diehl EGFR-NON AF QATARI 40 mL/min/1.73m2 Critically low >=60 [facility] Comment on above: Performed By: #### C MP #### [facility] [address] [place] [address] Dr. Ladan Diehl Globulin (S) [Mass/Vol] 5.2 g/dL Normal [facility] Comment on above: Performed By: #### C MP #### [facility] [address] [address] [address] Ladan Diehl Glucose [Mass/Vol] 253 mg/dL Critically high 74-106 [facility] Comment on above: Performed By: #### C MP #### [facility] [address] [address] [address] Ladan Diehl Potassium [Moles/Vol] 4.0 mmol/L Normal 3.5-5.1 [facility] Comment on above: Performed By: #### C MP #### [facility] [address] [place] [address] Dr. Ladan Diehl Protein [Mass/Vol] 7.8 g/dL Normal 6.4-8.2 [facility] Comment on above: Performed By: #### C MP #### [facility] [address] [place] [address] Dr. Ladan Diehl Sodium [Moles/Vol] 138 mmol/L Normal 136-145 [facility] Comment on above: Performed By: #### C MP #### [facility] [address] [place] [address] Dr. Ladan Diehl Urea nitrogen [Mass/Vol] 30.0 mg/dL Critically high 7.0-18 .0 [facility] Comment on above: Performed By: #### C MP #### [facility] [address] [place] [address] Dr. Ladan Diehl Urea nitrogen/Creatinine [Mass ratio] 17.4 mg/mg Normal [facility] Comment on above: Performed By: #### C MP #### [facility] [address] [place] [address] Dr. Ladan Diehl Vital Signs Date Time Vital Sign Value Performing Clinician Facility 05-01-2022 06:00-0400 Diastolic blood pressure 58 mm[Hg] [facility] 05-01-2022 06:00-0400 Heart rate 89 /min Et3 [facility] 05-01-2022 06:00-0400 Respiratory rate 20 /min [facility] 05-01-2022 06:00-0400 SaO2% (BldA) [Mass fraction] 91 % [facility] Comment on above: 2 L NC at baseline 05-01-2022 06:00-0400 Systolic blood pressure 86 mm[Hg] [facility] 04-12-2022 15:01-0400 Body temperature 98.3 [degF] MD Ayden Freeman Work Phone: [facility] 04-12-2022 15:01-0400 Diastolic blood pressure 68 mm[Hg] MD Ayden Freeman Work Phone: [facility] 04-12-2022 15:01-0400 Heart rate 90 /min MD Ayden Freeman Work Phone: [facility] 04-12-2022 15:01-0400 Respiratory rate 20 /min MD Ayden Freeman Work Phone: [facility] 04-12-2022 15:01-0400 SaO2% (BldA) [Mass fraction] 92 % MD Ayden Freeman Work Phone: [facility] 04-12-2022 15:01-0400 Systolic blood pressure 130 mm[Hg] MD Ayden Freeman Work Phone: [facility] 04-12-2022 10:48-0400 Body height 177.8 cm MD Ayden Freeman Work Phone: [facility] 04-12-2022 10:48-0400 Body weight 154.22 kg MD Ayden Freeman Work Phone: [facility] 04-09-2022 12:00-0400 Diastolic blood pressure 81 mm[Hg] MD Ayden Freeman Work Phone: [facility] 04-09-2022 12:00-0400 Heart rate 99 /min MD Ayden Freeman Work Phone: [facility] 04-09-2022 12:00-0400 Inhaled oxygen flow rate 2 L/min MD Ayden Freeman Work Phone: [facility] 04-09-2022 12:00-0400 Respiratory rate 18 /min MD Ayden Freeman Work Phone: [facility] 04-09-2022 12:00-0400 SaO2% (BldA) [Mass fraction] 98 % MD Ayden Freeman Work Phone: [facility] 04-09-2022 12:00-0400 Systolic blood pressure 127 mm[Hg] MD Ayden Freeman Work Phone: [facility] 04-09-2022 05:22-0400 Body weight 162 kg MD Ayden Freeman Work Phone: [facility] 04-08-2022 20:00-0400 Inhaled oxygen concentration 30 % MD Ayden Freeman Work Phone: [facility] 04-08-2022 14:56-0400 Body height 177.8 cm MD Ayden Freeman Work Phone: [facility] 04-08-2022 08:11-0400 Body temperature 98 [degF] MD Ayden Freeman Work Phone: [facility] 03-16-2022 11:59-0400 Diastolic blood pressure 90 mm[Hg] MD Ayden Freeman Work Phone: [facility] 03-16-2022 11:59-0400 Heart rate 95 /min MD Ayden Freeman Work Phone: [facility] 03-16-2022 11:59-0400 Respiratory rate 18 /min MD Ayden Freeman Work Phone: [facility] 03-16-2022 11:59-0400 SaO2% (BldA) [Mass fraction] 95 % MD Ayden Freeman Work Phone: [facility] 03-16-2022 11:59-0400 Systolic blood pressure 147 mm[Hg] MD Ayden Freeman Work Phone: [facility] 03-16-2022 08:07-0400 Body temperature 97.8 [degF] MD Ayden Freeman Work Phone: [facility] 03-16-2022 06:00-0400 Body weight 163.5 kg MD Ayden Freeman Work Phone: [facility] 03-14-2022 17:24-0400 Body height 177.8 cm MD Ayden Freeman Work Phone: [facility] 03-14-2022 16:00-0400 Inhaled oxygen flow rate 1 L/min MD Ayden Freeman Work Phone: [facility] Encounters Encounter Date Encounter Type Care Provider [...] Start: 05-01-2022 End: 05-01-2022 [facility] Start: 05-01-2022 End: 05-01-2022 Emergency department patient visit [facility] T[facility], [facility] Comment on above: Arrived Start: 04-24-2022 End: 04-30-2022 ambulatory UNKNOWN PROVIDER Facility:[facility] Start: 04-12-2022 End: 04-12-2022 Emergency department patient visit Ramesh Byrd Facility:[facility] Start: 04-12-2022 End: 04-12-2022 Emergency department patient visit MD Ayden Freeman Work Phone: [facility] Start: 04-10-2022 End: 04-17-2022 ambulatory UNKNOWN PROVIDER Facility:[facility] Start: 04-02-2022 End: 04-09-2022 Evaluation and management of inpatient MD Ayden Freeman Work Phone: [facility] Start: 03-15-[address] AYDEN FREEMAN Facil ity:[facility]1 Start: 03-14-2022 End: 03-14-2022 Patient encounter procedure JEFF CARLOS [facility] [place] Start: 03-14-2022 End: 03-16-2022 Evaluation and management of inpatient MD Ayden Freeman Work Phone: [facility] Start: 02-15-[address] AYDEN FREEMAN Facil ity:[facility] Start: 02-01-2022 End: 02-01-2022 ambulatory HINA DIOP . Facility: Start: 01-24-2022 End: 01-24-[address] CAROL YIP Facility:[facility] Start: 01-18-2022 End: 01-19-[address] MASON CASTRO Facility:[facility] Procedures Date Procedure Procedure Detail Performing Clinician Start: 12-19-[address] AYDEN FRIEND Comment on above: Performed By: #### P [facility] #### [facility] [address] [place] [address] Dr. Ladan Diehl Start: 04-12-2022 Plain chest [...] 04-12-2022 Plain chest X-ray XR chest 2V* [facility] Start: 04-12-2022 End: 04-12-2022 Emergency department patient visit Departed Emergency [facility] Start: 04-09-2022 [facility] Work Phone: Start: 04-09-2022 [facility] Work Phone: Start: 04-02-2022 End: 04-09-2022 Evaluation and management of inpatient Abrasion of elbow [facility] Start: 04-02-2022 CT angiography of thorax CT angio chest PE protocol [facility] Start: 04-02-2022 Hospital admission [facility] Work Phone: Start: 04-02-2022 X-ray of left knee XR knee LT 2V [facility] Start: 04-02-2022 Plain chest X-ray XR chest 1V portable [facility] Start: 04-02-2022 Plain X-ray of left hip XR hip LT min 2V(w/wo pelvis)* [facility] Start: 04-02-2022 Plain X-ray of left elbow XR elbow LT min 3V* [facility] Start: 03-16-2022 [facility] Work Phone: Start: 03-14-2022 Referral to sales representative [facility] Work Phone: Start: 03-14-2022 Hospital admission [facility] Work Phone: Start: 12-09-2021 Welcome [...] Screening for malignant neoplasm of colon [facility] Patient Education [facility] Work Phone: Patient referral [facility] Work Phone: Payers Date Payer Category Payer Self-pay [id number] 2021 Medicare [facility] [id number] 2021-Present [phone] [address] [address] [place] [address] Medicare [id number] 2021 Private Health Insurance [id number] 2017 Unknown [id number] 1959 Medicaid [id number] 1959 Medicare [id number] 1957 Unknown [id number] 2.16.840.1.708599.3.579.2. 732 1957 Unknown [id number] 2.16.840.1.278171.3.579.2. 732 1957 Unknown [id number] 2.16.840.1.951828.3.579.2. 732 1957 Unknown [id number] 2.16.840.1.642722.3.579.2. 732 1957 Unknown [id number] 2.16.840.1.603529.3.579.2. 593 1957 Unknown [id number] 2.16.840.1.265646.3.579.2. 593 1957 Unknown [id number] 2.16.840.1.823396.3.579.2. 593 1957 Unknown [id number] 2.16.840.1.750491.3.579.2. 593 1957 Unknown [id number] 2.16.840.1.064720.3.579.2. 593 1957 Unknown [id number] 2.16.840.1.673397.3.579.2. 593 1957 Unknown [id number] 2.16.840.1.739167.3.579.2. 593 1957 Unknown [id number] 2.16.840.1.520839.3.579.2. 593 1957 Unknown [id number] 2.16.840.1.572737.3.579.2. 593 1957 Unknown [id number] 2.16.840.1.451824.3.579.2. 1259 Medicare Medicare [id number] Medicare Medicare Psych-IP Part A [id number] Medicare [place] [facility] PFFS [id number] Medicare [place] [employer] [facility] [id number] Unknown [facility] [id number] Unknown [id number] 2.16.840.1.060002.3.579.2. 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 EMERGENCY TRIAGE, TREAT AND TRANSPORT (ET3) DOCUMENTATION OF TELEHEALTH VISIT Date / Time: 05/01/2022599 Name: Evelin Patterson : 1955 SSN: [id number] EMS Agency: [facility] [x] Verbal consent obtained [] Implied [...] Peter Molina DO documented in this encounter [facility] 04-08-2022 Progress note Note Date/Time April 08, 2022 1:38pm [facility] [address] [place] [address] Hospitalist Progress Note Signed Patient: Evelin Patterson MR#: [id number] : 1955 Acct:[id number] Age/Sex: 66 / M Adm Date: 2 Loc: 3T Room: [address] [place] [address] Type: ADM INOo Attending Dr: Lupe Hernandez [...] signed by Lupe Hernandez MD> 04/08/22 1338 [facility] Work Phone: 1([phone]) 496-734408-28-2022 Discharge summary Author Luke Moran [facility] April 07, 2022 4:16pm Note Date/Time April 05, 2022 10 :05am [facility] [address] [place], [place] [id number] Discharge Summary Signed with Addenda Patient: Evelin Patterson MR#: [id number] : 1955 Acct:[id number] Age/Sex: 66 / M Adm Date: 2 Loc: Room: [address] [place] [address]: Luke Moran MD Copies to: [...] 10:24: POC Glucose 271 04/03/22 07:34: Free [place] LC, Quant 93.9 H, Free Lambda LC, Quant 61.6 H, Free [place]/Lambda Ratio 1.52 Exam Physical Exam Vital Signs: Temp Pulse Resp BP Pulse Ox O2 Del Method O2 Flow Rate 97.9 F 85 20 134/76 90 L Room Air 2 04/05/22 08:00 04/05/22 08:00 04/05/22 08:00 04/05/22 08:00 04/05/22 08:00 04/05/22 08:00 04/05/22 08:00 FiO2 30 04/04/22 22:34 Discharge Plan Discharge Plan Patient Disposition: Alf Facility Activity: Ambulate as Tolerated Diet: Diabetic and Low-Sodium Additional Instructions: Please have company providing CPAP machine fit the patient with a mask that he can tolerate. Use a CPAP of 8 whenever asleep until the sleep study performed. Alf Facility to manage care: - Full code [...] Instructions: Sliding Scale ACHS Other Ambulatory Orders: [facility]PERATOR polysom procedure (Routine) Timeframe: 3 Weeks Location: Determined by Patient Ordered By: Luke Moran Follow Up: [facility] Sleep Lab [Outside] ([facility] or Central Scheduling will call you to arrange date/time for sleep study. ) Documented By: Luke Moran MD 04/07/22 5341 Signed By: <Electronically signed by Luke Moran MD> 04/07/22 1610 [facility] Work Phone: 1(692) 848-470508-27-2022 Progress note Author Luke Moran [facility] April 06, 2022 2:50pm Note Date/Time April 06, 2022 2: 50pm [facility] [address] [place] [address] Hospitalist Progress Note Signed Patient: Evelin Patterson MR#: [id number] : 1955 Acct:[id number] Age/Sex: 66 / M Adm Date: 2 Loc: 3T Room: [address] [place] [address] Type: ADM INOo Attending Dr: Luke Moran [...] signed by Luke Moran MD> 04/06/22 1450 [facility] Work Phone: 1(163) 338-884908-25-2022 Progress note Author Luke Moran [facility] April 04, 2022 4:25pm Note Date/Time April 04, 2022 4: 25pm [facility] [address] [place] [address] Hospitalist Progress Note Signed Patient: Evelin Patterson MR#: [id number] : 1955 Acct:[id number] Age/Sex: 66 / M Adm Date: 2 Loc: 3T Room: [address] [place] [address] Type: ADM INOo Attending Dr: Luke Moran [...] <Electronically signed by Luke Moran MD> 04/04/22 [facility] Work Phone: 1(707) 378-487908-24-2022 Progress note Author Luke Moran [facility] April 03, 2022 2:05pm Note Date/Time April 03, 2022 2: 05pm [facility] [address] [place] [address] Hospitalist Progress Note Signed Patient: Evelin Patterson MR#: [id number] : 1955 Acct:[id number] Age/Sex: 66 / M Adm Date: 2 Loc: Room: [address] [place] [address] Type: ADM INOo Attending Dr: Luke Moran [...] Flush Documented By: Luke Moran MD 04/03/22 0230 Signed By: <Electronically signed by Luke Moran MD> 04/03/22 0525 [facility] Work Phone: 1(337) 303-155708-23-2022 History and physical note Author Luke Moran [facility] April 02, 2022 7:48pm Note Date/Time April 02, 2022 7: 45pm [facility] [address] [place] [address] Hospitalist H&P Signed Patient: Evelin Patterson MR#: [id number] : 1955 Acct:[id number] Age/Sex: 66 / M Adm Date: 2 Loc: ER Room: Type: [facility] ER Attending Dr: Copies to: MD [...] Type: None Social History Comments: [facility] Medications and Allergies Allergies metformin Adverse [...] % (Auto) 8.7 % (.) 04/02/22 17:51 Brantley % (Auto) 12.2 % (.) 04/02/22 17:51 Eos % (Auto) 2.4 % (.) 04/02/22 17:51 Baso % (Auto) 0.6 % (.) 04/02/22 17:51 Neut # (Auto) 6.4 x10E3/uL (1.8-7.7) 04/02/22 17:51 Lymph # (Auto) 0.7 x10E3/uL (1.00-4.8) L 04/02/22 17:51 Brantley # (Auto) 1.0 x10E3/uL (0.0-0.8) H 04/02/22 [...] <Electronically signed by Luke Moran MD> 04/02/221947 [facility] Work Phone: 1(876) 283-162208-06-2022 Discharge summary Author Xin Phan [facility] March 16, 2022 9:37am Note Date/Time March 16, 2022 9:3 7am [facility] [address] [place] [address] Discharge Summary Signed Patient: Evelin Patterson MR#: [id number] : 1955 Acct:[id number] Age/Sex: 66 / M Adm Date: 2 Loc: Room: [address] [place] [address]: Xin Phan MD Copies to: [...] depression who was transferred from [facility] for acute kidney injury.? Patient presented with generalized weakness and disorientation at [facility]. He was noted to have blood [...] dizziness.? No fevers Paperwork from [facility] reviewed, chest x-ray with no acute cardiopulmonary process.? Sodium 129.? Potassium 3.3.? Creatinine 2.52.? WBC 6.8.? Hemoglobin 12.5.? Glucose 4.34.? Patient will be admitted by the hospitalist team for further evaluation and management. Patient was positive for COVID, patient was alert oriented x3 at [facility], patient states that he has been having [...] untreated sleep apnea Instructions: Blood Glucose Monitoring, [facility] COVID-19 Discharge Instructions Prescriptions: New Levemir FlexTouch [...] signed by Xin Phan MD> 03/16/22 0937 [facility] Work Phone: 1(442) 115-850508-05-2022 Progress [facility] 15, 2022 3:43pm Note Date/Time March 15, 2022 3:3 7pm [facility] [address] [place] [address] Nephrology Progress Note Signed Patient: Evelin Patterson MR#: [id number] : 1955 Acct:[id number] Age/Sex: 66 / M Adm Date: 2 Loc: Room: [address] [place] [address] Type: ADM IN Attending Dr: Xin Phan MD Copies to: ~ Date of Service: 03/15/2022 Subjective Subjective Narrative: This is 66-year-old male patient with a past medical history of morbid obesity, endocarditis, paroxysmal A. fib, diabetes type 2, anxiety and depression and chronic kidney disease stage III. Patient presented to [facility] with feeling weak and disoriented for 2 weeks which has gotten worse. Patient has been having cough with decreased appetite and loss of taste for a week. Lab at [facility] shows acute kidney injury with creatinine up to 4.3 mg/dL along with hyperglycemia with initial blood glucose level more than 400. Patient's blood pressure was in the 80s at [facility]. Patient was given IV fluid and transferred [...] 500 Mg Tablet) 500 mg PO DAILY [facility] Stop: 03/14/23 08:59 Last Admin: 03/15/22 08:34 Dose: 500 mg Dexamethasone 2 mg/ (Dexamethasone 4 mg) 6 mg PO DAILY [facility] Stop: 03/22/23 08:59 Last Admin: 03/15/22 08:34 [...] 5,000 Unit/Ml Vial) 5,000 unit SUBCUT Q12HR [facility] Stop: 03/14/23 08:59 Last Admin: 03/15/22 08:34 Dose: 5,000 unit Sodium Chloride (0.9% Sodium Chloride 1,000 Ml) 1,000 mls @ 100 mls/hr IV .[id number] Stop: 03/14/23 01:59 Last Admin: 03/15/22 06:46 Dose: 100 mls/hr Insulin Aspart (Insulin Aspart 300 Units/3 Ml Insuln.Pen) 0 units SUBCUT TID.WM.HS [facility]; Protocol Stop: 03/14/23 07:59 Last Admin: 03/15/22 12:06 Dose: 9 units Insulin Detemir (Insulin Detemir 300 Units/3 Ml Insuln.Pen) 40 units SUBCUT DAILY.WITH.BKFAST [facility] Stop: 03/16/23 07:59 Zinc Sulfate (Zinc Sulfate 220 Mg Capsule) 220 mg PO DAILY [facility] Stop: 03/14/23 08:59 Last Admin: 03/15/22 08:34 [...] question Documented By: Sarah Osuna MD 03/15/22 1614 Signed By: <Electronically signed by Sarah Osuna MD> 03/15/22 1540 [facility] Work Phone: 1(292) 517-119308-05-2022 Progress note Author Xin Phan [facility] March 15, 2022 12:44pm Note Date/Time March 15, 2022 12: 44pm [facility] [address] [place] [address] Hospitalist Progress Note Signed Patient: Evelin Patterson MR#: [id number] : 1955 Acct:[id number] Age/Sex: 66 / M Adm Date: 2 Loc: Room: [address] [place] [address] Type: ADM IN Attending Dr: Xin Phan MD Copies to: ~ Date of Service: 03/15/2022 Subjective Subjective Narrative: Patient is a 66-year-old male, with a PMHx of Morbid obesity, endocarditis in August of this year, atrial fibrillation, type 2 diabetes, hypertension, liver cirrhosis, anxiety and depression who was transferred from [facility] for acute kidney injury. Patient presented with generalized weakness and disorientation at [facility]. He was noted to have blood [...] poor oral intake. Presented at [facility] with low blood pressures in the 80s. ?Creatinine at [facility] 4.34. Baseline creatinine ~1.4 - Nephrology [...] diabetic diet ?Blood sugar at [facility] was in the 400s ? Will [...] <Electronically signed by Xin Phan MD> 03/15/22 0086 [facility] Work Phone: 1(728) 469-576108-04-2022 Progress note Author Renato Looney [facility] March 14, 2022 2:14pm Note Date/Time March 14, 2022 2:1 4pm [facility] [address] [place] [address] Progress Note Signed Patient: Evelin Patterson MR#: [id number] : 1955 Acct:[id number] Age/Sex: 66 / M Adm Date: 2 Loc: Room: [address] [place] [address] Type: ADM IN Attending Dr: Renato Looney MD Copies to: ~ Date of Service: 03/14/2022 Progress Narrative Note PROGRESS NOTE Progress Note: Patient seen and evaluated by academic advisor early this morning and also by myself. Briefly, patient is a 66-year-old male past medical history significant for obesity, atrial fibrillation, hypertension, diabetes, liver cirrhosis, mood disorder and recent endocarditis infection who presented to outlying facility due to generalized weakness found to have COVID-19 and acute kidney injury and was transferred to [facility] for further evaluation and management. 1. Acute [...] signed by Renato Looney MD> 03/14/22 1414 [facility] Work Phone: 1(205) 305-887608-04-2022 Consult note Author Sarah Osuna [facility] March 14, 2022 12:30pm Note Date/Time March 14, 2022 12: 30pm [facility] [address] [place] [address] Nephrology Consult Note Signed Patient: Evelin Patterson MR#: [id number] : 1955 Acct:[id number] Age/Sex: 66 / M Adm Date: 2 Loc: Room: [address] [place] [address] Type: ADM IN Attending Dr: Renato Looney [...] stage III. Patient presented to [facility] with feeling weak and disoriented for 2 weeks which has gotten worse. Patient has been having cough with decreased appetite and loss of taste for a week. Lab at [facility] shows acute kidney injury with creatinine up to 4.3 mg/dL along with hyperglycemia with initial blood glucose level more than 400. Patient's blood pressure was in the 80s at [facility]. Patient was given IV fluid and transferred [...] Type: None Social History Comments: [facility] Medications & Allergies Allergies metformin Adverse [...] 500 Mg Tablet) 500 mg PO DAILY [facility] Stop: 03/14/23 08:59 Last Admin: 03/14/22 08:34 Dose: 500 mg Dexamethasone 2 mg/ (Dexamethasone 4 mg) 6 mg PO DAILY [facility] Stop: 03/22/23 08:59 Last Admin: 03/14/22 08:33 [...] 5,000 Unit/Ml Vial) 5,000 unit SUBCUT Q12HR [facility] Stop: 03/14/23 08:59 Last Admin: 03/14/22 08:39 Dose: 5,000 unit Sodium Chloride (0.9% Sodium Chloride 1,000 Ml) 1,000 mls @ 100 mls/hr IV .[id number] Stop: 03/14/23 01:59 Last Admin: 03/14/22 03:26 Dose: 100 mls/hr Insulin Aspart (Insulin Aspart 300 Units/3 Ml Insuln.Pen) 0 units SUBCUT TID.WM.HS [facility]; Protocol Stop: 03/14/23 07:59 Last Admin: 03/14/22 12:06 Dose: Not Given Insulin Detemir (Insulin Detemir 300 Units/3 Ml Insuln.Pen) 35 units SUBCUT DAILY.WITH.BKFAST [facility] Stop: 03/14/23 07:59 Last Admin: 03/14/22 08:34 Dose: 35 units Zinc Sulfate (Zinc Sulfate 220 Mg Capsule) 220 mg PO DAILY [facility] Stop: 03/14/23 08:59 Last Admin: 03/14/22 08:34 [...] M.D.03/14/2022 8:24 AM Dictation Location: [place] [address] Any impression(s) listed above is documentation that [...] <Electronically signed by Sarah Osuna MD> 03/14/22 5206 [facility] Work Phone: [phone]) 374-734208-04-2022 History and physical note Author Mary Jane Riley [facility] March 14, 2022 6:40am Note Date/Time March 14, 2022 2:0 2am [facility] [address] [place] [address] Hospitalist H&P Signed Patient: Evelin [place] MR#: [id number] : 1955 Acct:[id number] Age/Sex: 66 / M Adm Date: 2 Loc: Room: [address] [place] [address] Type: ADM IN Attending Dr: Mary Jane [...] depression who was transferred from [facility] for acute kidney injury. Patient presented with generalized weakness and disorientation at [facility]. He was noted to have blood [...] dizziness. No fevers Paperwork from [facility] reviewed, chest x-ray with no acute cardiopulmonary process. Sodium 129. Potassium 3.3. Creatinine 2.52. WBC 6.8. Hemoglobin 12.5. Glucose 4.34. Patient will be admitted by the hospitalist team for further evaluation and management. Review of Systems Review of Systems Review of systems: 10 point review of systems obtained, negative unless noted in the HPI or below [facility] Medical History Abdominal mass Anxiety Arthritis Back pain Cirrhosis Colonoscopy planned Deviated nasal septum Diabetes mellitus, type 2 Eczema History of left heart catheterization Pneumonia Surgical History History of cholecystectomy History of hydrocelectomy History of lithotripsy History of nasal surgery Family History Mother Cancer Social History Smoking Status: Never smoker Substance Use Type: None Social History Comments: [facility] in [facility] in [facility] Medications and Allergies Allergies metformin Adverse [...] poor oral intake. Presented at [facility] with low blood pressures in the 80s. ?Creatinine at [facility] 4.34. Baseline creatinine ~1.4 ?Urine sodium, creatinine, urea pending ? Urine output monitoring ? Start IV fluids ? Hold home lisinopril and renally adjust medications ?Consider renal ultrasound if no improvement ? Nephrology consult ?Monitor BMP COVID-19 positive -unvaccinated. ? Presented with productive cough, hypoxia, loss of taste and generalized weakness ? Afebrile, no leukocytosis ? Chest x-ray from [facility] did not show any acute cardiopulmonary [...] diabetic diet ?Blood sugar at [facility] was in the 400s ?Basal insulin [...] the plan of care and confirmed the resident's/dietary internship/medical student's dictation/written note. Patient is a [...] by Mary Jane Hanna MD> 03/14/22 0640 [facility] Work Phone: 1(747) 561-776504-19-2022 Progress note Author Lupe Hernandez [facility] April 09, 2022 3:32pm Note Date/Time April 09, 2022 1: 08pm [facility] [address] [place] [address] Hospitalist Progress Note Signed with Muna Patient: Evelin Patterson MR#: [id number] : 1955 Acct:[id number] Age/Sex: 66 / M Adm Date: 2 Loc: 3T Room: 2F4691-7 Type: DIS INOo Attending Dr: Lupe Hernandez [...] to thrive, paroxysmal A. fib, CKD 3, usp-gecjsvu-kppgtqtpz diabetes, CHF is being monitored on the floor while a ssop-og-ubxa was had with regards to the patient's [...] signed by Lupe Hernandez MD> 04/09/22 1531 [facility] Work Phone: Discharge summary Author Luke Moran [facility] April 07, 2022 4:16pm Note Date/Time April 05, 2022 10 :05am [facility] [address] [place] [address] Discharge Summary Signed with Muna Patient: Evelin Patterson MR#: [id number] : 1955 Acct:[id number] Age/Sex: 66 / M Adm Date: 2 Loc: Room: [address] [place] [address]: Luke Moran MD Copies to: [...] 10:24: POC Glucose 271 04/03/22 07:34: Free [place] LC, Quant 93.9 H, Free Lambda LC, Quant 61.6 H, Free [place]/Lambda Ratio 1.52 Exam Physical Exam Vital Signs: Temp Pulse Resp BP Pulse Ox O2 Del Method O2 Flow Rate 97.9 F 85 20 134/76 90 L Room Air 2 04/05/22 08:00 04/05/22 08:00 04/05/22 08:00 04/05/22 08:00 04/05/22 08:00 04/05/22 08:00 04/05/22 08:00 FiO2 30 04/04/22 22:34 Discharge Plan Discharge Plan Patient Disposition: Alf Facility Activity: Ambulate as Tolerated Diet: Diabetic and Low-Sodium Additional Instructions: Please have company providing CPAP machine fit the patient with a mask that he can tolerate. Use a CPAP of 8 whenever asleep until the sleep study performed. Alf Facility to manage care: - Full code [...] Instructions: Sliding Scale ACHS Other Ambulatory Orders: [facility] OPERATOR polysom procedure (Routine) Timeframe: 3 Weeks Location: Determined by Patient Ordered By: Luke Moran Follow Up: [facility] [Outside] ([facility] or Central Scheduling will call you to arrange date/time for sleep study. ) Documented By: Luke Moran MD 04/07/22 0959 Signed By: <Electronically signed by Luke Moran MD> 04/07/22 1610 [facility] Work Phone: Evaluation + Plan note No data available for this section [facility] [place] Evaluation note* Diagnosis Onset Date Resolution Status [...] care for self acut e [facility] Work Phone: Evaluation note* Diagnosis Hypotension, unspecified hypotension type- Primary Fall, initial encounter Refusal of treatment Surgical or other procedure not carried out because of patient's decision documented in this encounter [facility] noteNo assessment information availableUniversity [facility] Work Phone: Hospital Discharge instructions No data available for this section [facility] Hospital Discharge instructionsAmbulatory Orders* Initiate Home Health Time Frame: 04/09/22, Location: Determined By Patient Additional Instructions Please wear home oxygen at 2l at all times. HOME HEALTH TO MANAGE: Nursing/PT/OT/Aide/Deputy Commissioner to eval and treat Monitor VS per protocol Maintain home oxygen at 2l continuous *Oxygen therapy is new, educate patient on Monitor Respiratory assessment Assist with medication management and provide medication education Assist with glucose control Skin care TID: *Theraworx protect to bilateral groin and abdominal fold redness. *Educate patient on Provide education on high risk fall precautions [facility] Work Phone: Hospital Discharge instructions Additional Instructions If your symptoms return/worsen or you develop any further concerns or symptoms please see your doctor or return to the emergency department immediately.[facility] Work Phone: Progress note No data available for this section [facility] Progruiq note Author Sarah Osuna [facility] March 16, 2022 12:40pm Note Date/Time March 16, 2022 12: 36pm [facility] [address] [place] [address] Nephrology Progress Note Signed Patient: Evelin Patterson MR#: [id number] : 1955 Acct:[id number] Age/Sex: 66 / M Adm Date: 2 Loc: Room: [address] [place] [address] Type: ADM IN Attending Dr: Xin Phan MD Copies to: ~ Date of Service: 03/16/2022 Subjective Subjective Narrative: This is 66-year-old male patient with a past medical history of morbid obesity, endocarditis, paroxysmal A. fib, diabetes type 2, anxiety and depression and chronic kidney disease stage III. Patient presented to [facility] with feeling weak and disoriented for 2 weeks which has gotten worse. Patient has been having cough with decreased appetite and loss of taste for a week. Lab at [facility] shows acute kidney injury with creatinine up to 4.3 mg/dL along with hyperglycemia with initial blood glucose level more than 400. Patient's blood pressure was in the 80s at [facility]. Patient was given IV fluid and transferred [...] 5 Mg Tablet) 5 mg PO DAILY [facility] Stop: 03/15/23 15:59 Last Admin: 03/16/22 08:08 Dose: 5 mg Ascorbic Acid (Ascorbic Acid 500 Mg Tablet) 500 mg PO DAILY [facility] Stop: 03/14/23 08:59 Last Admin: 03/16/22 08:08 Dose: 500 mg Dexamethasone 2 mg/ (Dexamethasone 4 mg) 6 mg PO DAILY [facility] Stop: 03/22/23 08:59 Last Admin: 03/16/22 08:08 [...] 5,000 Unit/Ml Vial) 5,000 unit SUBCUT Q12HR [facility] Stop: 03/14/23 08:59 Last Admin: 03/16/22 08:09 Dose: Not Given Insulin Aspart (Insulin Aspart 300 Units/3 Ml Insuln.Pen) 0 units SUBCUT TID..[facility]; Protocol Stop: 03/14/23 07:59 Last Admin: [...] signed by Sarah Osuna MD> 03/16/22 1240 [facility] Work Phone: Progress note Author Luke Moran [facility] April 03, 2022 2:05pm Note Date/Time April 03, 2022 2: 05pm [facility] [address] [place] [address] Hospitalist Progress Note Signed Patient: Evelin Patterson MR#: [id number] : 1955 Acct:[id number] Age/Sex: 66 / M Adm Date: 2 Loc: Room: [address] [place] [address] Type: ADM INOo Attending Dr: Luke Moran [...] <Electronically signed by Luke Moran MD> 04/03/22 1400 [facility] Work Phone: Progress note Author Luke Moran [facility] April 04, 2022 4:25pm Note Date/Time April 04, 2022 4: 25pm [facility] [address] [place] [address] Hospitalist Progress Note Signed Patient: Evelin Patterson MR#: [id number] : 1955 Acct:[id number] Age/Sex: 66 / M Adm Date: 2 Loc: Room: [address] [place] [address] Type: ADM INOo Attending Dr: Luke Moran [...] <Electronically signed by Luke Moran MD> 04/04/221624 [facility] Work Phone: Progress note Author Luke Moran [facility] April 06, 2022 2:50pm Note Date/Time April 06, 2022 2: 50pm [facility] [address] [place] [address] Hospitalist Progress Note Signed Patient: Evelin Patterson MR#: [id number] : 1955 Acct:[id number] Age/Sex: 66 / M Adm Date: 2 Loc: 3T Room: [address] [place] [address] Type: ADM INOo Attending Dr: Luke Moran [...] signed by Luke Moran MD> 04/06/22 1450 [facility] Work Phone: Progress note Author Lupe Hernandez [facility] April 08, 2022 1:38pm Note Date/Time April 08, 2022 1: 38pm [facility] [address] [place] [address] Hospitalist Progress Note Signed Patient: Evelin Patterson MR#: [id number] : 1955 Acct:[id number] Age/Sex: 66 / M Adm Date: 2 Loc: Room: [address] [place] [address] Type: ADM INOo Attending Dr: Lupe Hernandez [...] signed by Lupe Hernandez MD> 04/08/22 1338 [facility] Work Phone: Chief Complaint and [...] and content) DATE CREATED AUTHOR 05/08/2022 [facility] [facility] DATE CREATED AUTHOR AUTHOR'S ORGANIZ ATION 12/23/2022 [facility] DATE CREATED AUTHOR AUTHOR'S ORGANIZ ATION 04/12/2023 [facility] DATE CREATED AUTHOR AUTHOR'S ORGANIZ ATION 09/17/[address] [facility] DATE CREATED AUTHOR AUTHOR'S ORGANIZ ATION 06/15/2024 [facility] Reason for Visit (unrecogniz ed [...] BE BASED ON THE PRIMARY CLINICAL RECORDS. [facility] [employer] [facility]. provides no warranty or guarantee of the accuracy or completeness of information in this document.
== END 2024-10-15 11:06 | disposition home or self-care (01) ==
LOC: EC 11:05
PROVIDERS: PCP Nurse Practitioner Family; Visit Provider Orthopaedic Surgery Orthopaedic Surgery of the Spine
DX: M54.50 Low back pain, unspecified (principal); M51.369 Other intervertebral disc degeneration, lumbar region without mention of lumbar back pain or lower extremity pain; M85.88 Other specified disorders of bone density and structure, other site; M48.54XG Collapsed vertebra, not elsewhere classified, thoracic region, subsequent encounter for fracture with delayed healing
CPT/HCPCS: 72120

== ENCOUNTER 2024-11-17 13:44 | Outpatient (OUT) | payer MEDICARE, MEDICAID, SELFPAY ==
--- NOTE | 2024-11-17 14:00 | CA_ITS ---
Patient Name: EVELIN CAMACHO MR#: [id number] : 1955 Exam Date: 11/17/2024 Ordering Doctor: DR CHICHI VEE M.D. ECHOCARDIOGRAM REPORT PROCEDURE: CA ECHO DOPPLER COMPLETE INDICATIONS: Shortness of breath, hypertension, diabetes, COPD COMPARISON: None. DESCRIPTION: COMPLETE ECHOCARDIOGRAM Real-time transthoracic echocardiography with 2D, M-mode, spectral and color flow Doppler performed. QUALITY: Technically difficult due patient's condition. LEFT VENTRICLE: Normal chamber size. Mild concentric left ventricular hypertrophy. LV EF: Normal left ventricular ejection fraction, (55%). DIASTOLIC: ATRIAL SEPTUM: LEFT ATRIUM: Appears mildly dilated. RIGHT ATRIUM: Not well-visualized. RIGHT VENTRICLE: Normal chamber size. Systolic function is normal. TRICUSPID VALVE: Normal mobility and thickness. No stenosis with no regurgitation. MITRAL VALVE: Normal mobility and thickness. No evidence of mitral valve stenosis. There is no mitral annular calcification. No mitral regurgitation. AORTIC VALVE: Normal trileaflet appearance. No visible sclerosis. Normal leaflet mobility. No evidence of aortic valve stenosis. No aortic regurgitation. AORTIC ROOT: Normal diameter and appearance, measuring 3.7 cm. PULMONIC VALVE: Not well visualized. No stenosis. No regurgitation. PERICARDIUM: No evidence of pericardial effusion. IVC: IVC is dilated (2.2 cm) PLEURA: CONCLUSION: 1. Mild concentric left ventricular hypertrophy with normal systolic function. Estimated LVEF is 55%. 2. Normal right ventricular size and systolic function. 3. No significant valvular dysfunction. 4. Technically difficult study due to poor sound transmission. Adult Echocardiography Procedure Report Left Ventricle LVEDD (3.7 - 5.6 cm): 4.59 cm LVESD (2.2 - 4.0 cm): 3.65 cm LVIVS thickness (0.6 - 1.2 cm): 1.32 cm LVPW thickness (0.5 - 1.0 cm): 1.31 cm LVOT Max Gradient: 1.96 mm[Hg] LVOT Area (cm2): 0.70 m/s Peak Velocity (LVOT): 0.70 m/s Mean Velocity (LVOT): 0.44 m/s LVOT Diameter 2.19 cm Left Atrium Left Atrium Systolic Dimension: 3.97 cm Mitral Valve MV E to A Ratio: 1.36 Mitral Valve A-Wave Peak Velocity: 0.58 m/s Mitral Valve E-Wave Peak Velocity: 0.78 m/s Right Ventricle Aorta AO Root Diam: 3.70 cm Aortic Valve AoV Area (Peak Vamsi): 2.88 cm2, 2.88 cm2 AoV Area (VTI): 3.73 cm2, 3.73 cm2 Peak Velocity(Antegrade Flow): 0.92 m/s Peak Gradient(Antegrade Flow): 3.36 mm[Hg] Mean Velocity(Antegrade Flow): 0.56 m/s Mean Gradient(Antegrade Flow): 1.53 mm[Hg] Velocity Time Integral: 18.72 cm Tricuspid Valve Pulmonic Valve Mean Gradient: 1.49 mm[Hg] Mean Velocity: 0.56 m/s Peak Velocity: 0.96 m/s, 0.86 m/s Peak Gradient: 2.97 mm[Hg], 3.67 mm[Hg] Right Atrium Dictated by: Dusty Ni M.D. on 11/17/2024 at 19:01 Approved by: Dusty Ni M.D. on 11/17/2024 at 19:03
[2024-11-17 14:20] LABS: Basophils Absolute Auto 0.1 10^3/uL (0.0-0.1); Basophils Percent Auto 1.1 % (0.2-2.0); Eosinophils Absolute Auto 0.6 10^3/uL (0.0-0.7); Eosinophils Percent Auto 6.9 % (0.9-7.0); Hematocrit 36.2 % (42.0-54.0); Hemoglobin 11.6 g/dL (14.0-18.0); Immature Granulocytes Abs Auto 0.02 10^3/uL (0.00-0.03); Immature Granulocytes Pct Auto 0.2 % (0.0-0.5); Lymphocytes Absolute Auto 1.9 10^3/uL (1.2-3.8); Lymphocytes Percent Auto 22.8 % (20.5-60.0); Mean Corpuscular Hemoglobin 28.3 pg (25.9-34.0); Mean Corpuscular Volume 88.3 fL (80.0-94.0); Mean Platelet Volume 10.2 fL (9.5-13.5); Monocytes Absolute Auto 0.8 10^3/uL (0.3-0.8); Monocytes Percent Auto 9.7 % (1.7-12.0); Neutrophils Absolute Auto 4.8 10^3/uL (1.4-6.5); Neutrophils Percent Auto 59.3 % (43.0-75.0); Platelet Count 213 10^3/uL (150-450); Red Cell Distribution Width 14.6 % (11.0-15.0); White Blood Count 8.1 10^3/uL (4.0-11.0)
[2024-11-17 14:32] LABS: Anion Gap 12.7; BUN Creatinine Ratio 13.5; Calcium 8.6 mg/dL (8.5-10.1); Carbon Dioxide 25.2 mmol/L (21.0-32.0); Chloride 103 mmol/L (98-107); Estimated GFR (African America >60 (>=60 mL/min/1.73m^2); Estimated GFR (Non-African Ame 57 (>=60 mL/min/1.73m^2); Glucose 219 mg/dL (74-106); Potassium 3.9 mmol/L (3.5-5.1); Sodium 137 mmol/L (136-145)
== END 2024-11-17 13:45 | disposition home or self-care (01) ==
PROVIDERS: PCP Nurse Practitioner Family; Visit Provider Internal Medicine Interventional Cardiology
DX: Z01.812 Encounter for preprocedural laboratory examination (principal); Z01.818 Encounter for other preprocedural examination; R06.02 Shortness of breath; I25.10 Atherosclerotic heart disease of native coronary artery without angina pectoris
CPT/HCPCS: 36415; 80048; 85025; 93306

== ENCOUNTER 2024-12-23 09:19 | Outpatient (OUT) | payer MEDICARE, MEDICAID, SELFPAY ==
--- NOTE | 2024-12-23 09:40 | ECG_ITS ---
The [facility] Test Date: 2024-12-23 Pat Name: EVELIN CAMACHO Department: Room: - Gender: Male Per Diem Clerk: : 1955 Requested By: [id number] Order Number: [id number] Reading MD: SHANEL DONOHUE M.D. Measurements Intervals [place] Rate: 83 P: FL: QRS: 14 QRSD: 77 T: 41 QT: 378 QTc: 445 Interpretive Statements ATRIAL FIBRILLATION ABNORMAL ECG Compared to ECG 02/19/2024 08:07:42 No significant changes Electronically Signed On 12-23-2024 19:43:46 EDT by SHANEL DONOHUE M.D.
--- NOTE | 2024-12-23 10:18 | XR_ITS ---
The [address] [address] Patient Name: EVELIN CAMACHO MRN: [id number] date: 1955 Sex: M Assigned Patient Location: CARD Current Patient Location: CARD Accession/Order Number: [id number] Exam Date: 12/23/2024 11:45 Report Date: 12/23/2024 11:46 At the request of: KATHIA LAZAR Procedure: XR knee RT 3V XR knee RT 3V 12/23/2024 10:18 AM SIGNS AND SYMPTOMS: ^Right Knee Pain PROTOCOL: Frontal, lateral, and oblique radiographs of the right knee COMPARISON: 01/30/2024 FINDINGS: The weightbearing and patellofemoral joint spaces are grossly preserved. There is no fracture or dislocation. Vascular calcifications are present in the soft tissues. No joint effusion or soft tissue swelling. XR/XR knee RT 3V IMPRESSION: No acute bony injury or significant degenerative change. Impression dictated by: Bon Doherty M.D. 12/23/2024 11:46 AM Dictation Location: IVFXPERT Electronically authenticated by: [id number] Y Date: 12/23/2024 11:46
== END 2024-12-23 09:20 | disposition home or self-care (01) ==
PROVIDERS: PCP Nurse Practitioner Family; Visit Provider Nurse Practitioner Family
DX: M25.561 Pain in right knee (principal); I48.91 Unspecified atrial fibrillation
CPT/HCPCS: 73562; 93005

== ENCOUNTER 2025-01-05 10:50 | Outpatient (RCR) | payer MEDICARE, MEDICAID, SELFPAY | END 2025-02-23 06:53 | disposition home or self-care (01) | LOC: PT 10:50 | PROVIDERS: PCP Nurse Practitioner Family | DX: M54.30 Sciatica, unspecified side (principal) | CPT/HCPCS: 97110; 97140; 97162; G0283 ==

== ENCOUNTER 2025-03-25 13:46 | Outpatient (OUT) | payer MEDICARE, MEDICAID, SELFPAY ==
--- OUTSIDE RECORDS SUMMARY | 2025-03-25 14:08 | XMS_ITS | CCD ---
Author Organization [facility] Inform ion [facility] Care Team Providers Care Box Coverer Hand Name Role Phone JEFF CARLOS Primary Care Physician MD Ayden Freeman Primary Care Provider Al MD Malcom Campbelli Admit Provider MD Sarah Osuna Other Provider MD Xin Phan Attending Provider [phone] DO Jair Gabriel Emergency Provider [phone] MD Luke Moran Admit Provider MD Lupe [...] Unavailable LYDIA, DR AYDEN Haney Consulting Unavailable RAYNECHKRYSTIN ., JOSE JUAN US Consulting UnavailXIN Tavares Consulting Unavailable JEMMA WALKER Consulting Unavailable LYDIA, DR AYDEN Haney Consulting Unavailable NADRACHEL, DR AYDEN Haney Primary Care Unavailable NADERER, DR AYDEN Haney Attending Unavailable NADERER, DR AYDEN Haney Admitting Unavailable NADERER, DR AYDEN Haney Consulting Unavailable NADERER, DR AYDEN Haney Primary Care Unavailable NADERER, DR AYDEN Haney Attending Unavailable NADERER, DR AYDEN Haney Admitting Unavailable NADERER, DR AYDEN Haney Primary Care Unavailable APLING, VICK Lerner Attending Unavailable APLING, VICK B Admitting Unavailable ZIEBER, DR CAROL Huffman Consulting Unavailable HAY ., DR BUTT Attending Unavailable HAY ., DR BUTT Admitting Unavailable NADERER, DR AYDEN Haney Primary Care Unavailable HAY ., DR BUTT Consulting Unavailable AMBROCIO, ABBIE Consulting Unavailable CASTRO, DR MASON Huffman Consulting Unavailable CASTRO, DR MASON Huffman Attending Unavailable CASTRO, DR MASON Huffman Admitting Unavailable NADERER, DR AYDEN Haney Primary Care Unavailable AHDOOT, JENNIFER Consulting Unavailable BROWN, ROSELIA Consulting Unavailable PEDRAZA, GITiffany Consulting Unavailable CHIKIS ., HINA Consulting Unavailable NADERER, DR AYDEN Haney Primary Care Unavailable CHIKIS ., HINA Attending Unavailable CHIKIS ., HINA Admitting Unavailable NADERER, DR AYDEN Haney Primary Care Unavailable CHIKIS ., HINA Attending Unavailable CHIKIS ., HINA Admitting Unavailable Margot Singh MD Attending Provider [phone] Arline Pisano Primary Care Provider [phone] Lottie Washington PA-C Attending Provider [phone] ELTAHAWY, EHAB Attending Unavailable ELTAHAWY, EHAB Admitting Unavailable ELTAHAWY, EHAB Attending Unavailable ELTAHAWY, EHAB Referring Unavailable Unallocated Estrella JOHNSON Provider Primary Care Provi howard Arline Rouse MD Unavailable Ezio Amado MD Primary Care Provider [phone] Arline Pisano Primary Care Provider [phone] Margot Singh MD Attending Provider Arline Rouse Primary Care Unavailable Lottie Washington Admitting UnavailLottie Andrews Attending Unavailabl e Margot Singh Admitting Unavailable Margot Singh Attending Unavailable Arline Rouse Primary Care Unavailable Margot Singh Admitting Unavailable Margot Singh Attending Unavailable Arline Rouse Primary Care Unavailable Arline Rouse Primary Care Unavailable Lottie Washington Admitting UnavailLottie Andrews Attending UnavailCAROL [place] Attending Unavailable CAROL BURNS Attending Unavailable SYLVIA LUI Attending Unavailable JIMENA SY Referring Unavailable CAROL BURNS Attending Unavailable SYLVIA LUI Attending Unavailable Allergies Allergy Classification Reported Allergen(s) Allergy Type Date of Onset Reaction(s) Facility (20 sources) metFORMIN; Translations: [metformin] Drug Allergy 2 Unknown [facility] (20 sources) Prochlorperazine; Translations: [PROCHLORPERAZINE] Drug Allergy 2 Anxiety, Other [facility] (2 sources) Prochlorperazine Drug Allergy [facility] (13 sources) pioglitazone Drug Allergy 4 [facility] Medications Current Medications Medication Drug Class(es) Dates Sig (Normalized) Sig (Original) acetaminophen 500 mg oral tablet (9 sources) Start: 04-04-2022 take 2 tablets by mouth every six hours as needed for pain Acetaminophen 500 mg Tablet Active 1000 MG PO Q6H as needed for Fever Or Pain 0 April 04, 2022 12:00am Complies with drug therapy Start: 04-04-2022 take 1000 mg by mout [...] PO Q6H 0 April 04, 2022 12:00am [id number] 200 actuat albuterol 0.09 mg/actuat metered dose inhaler (9 sources) beta2-Adrenergic Agonist Start: 03-14-2022 take 1 puff(s) by inhalation every four hours as needed Albuterol Sulfate 90 mcg/actuation HFA aerosol inhaler Active 2 PUFF INHALATION Every 4 hours as needed for Shortness Of Breath March 14, 2022 12:00am Complies with drug therapy apixaban 5 mg oral tablet (15 sources) Factor Xa Inhibitor Start: 12-17-2024 Eliquis 5 MG tablet 01/14/2025 Active atorvastatin 40 mg oral tablet (20 sources) HMG-CoA Reductase Inhibitor Start: 07-27-2020 take 1 tablet by mouth once daily at bedtime Atorvastatin 40 mg Tablet Active 40 MG PO Daily at bedtime July 27, 2020 1:00am Complies with drug therapy carvedilol 3.125 mg oral tablet (12 sources) alpha-Adrenergic Eva, beta-Adrenergic Eva carvedilol (Coreg) 3.125 MG tablet Oral for 90 Days Active diclofenac sodium 75 mg delayed release oral tablet (3 sources) Nonsteroidal Anti-inflammatory Drug Start: 12-17-2024 take 2 tablets by mouth once daily at bedtime Diclofenac Sodium 75 mg tablet,delayed release (DR/EC) Active 150 MG PO Daily at bedtime December 17, 2024 12:00am Complies with drug therapy diphenhydrAMINE hydrochloride 25 mg oral capsule (15 sources) Histamine-1 Receptor Antagonist Start: 12-21-2024 take 1-2 capsules by mouth four times daily Banophen 25 MG capsule TAKE 1 - 2 CAPSULES BY MOUTH 4 TIMES A DAY FOR ITCHING 12/21/2024 Active Start: 12-17-2024 Diphenhydramin e Hcl (Banophen) 25 mg capsule Active 50 MG PO Daily at bedtime December 17, 2024 12:00am Complies with drug therapy esomeprazole 40 mg delayed release oral capsule (20 sources) Proton Pump Inhibitor Start: 12-10-2023 esomeprazole (NexIUM ) [address] capsule Indications: Gastroesophageal reflux disease without esophagitis TAKE 1 CAPSULE EVERY DAY 90 capsule 3 12/10/2023 Active Start: 03-14-2022 End: 04-02-2022 take 1 capsule by mouth once daily Esomeprazole Magnesium 40 mg capsule,delayed release(DR/EC) Discontinued 40 MG PO Daily March 14, 2022 12:00am April 02, 2022 6:07pm fluticasone propionate 0.05 mg/actuat metered dose nasal spray (16 sources) Corticosteroid Start: 12-27-2024 fluticasone (F lonase) 50 MCG/ACT nasal spray Indications: Seasonal allergic rhinitis due to pollen USE 2 SPRAYS IN EACH NOSTRIL IN MORNING.SHAKE GENTLY.BEFORE FIRST USE,PRIME PUMP.AFTER USE,CLEAN TIP AND REPLACE CAP. 16 mL 1 12/27/2024 Active Start: 12-17-2024 Fluticasone Pr opionate 50 mcg/actuation spray,suspension Active 1 SPRAY INTRANASAL Daily as needed for allergy symptoms December 17, 2024 12:00am Complies with drug therapy gabapentin 100 mg oral capsule (20 sources) Anti-epileptic Agent Start: 12-17-2024 take 2 capsules by mouth once daily at bedtime Gabapentin 100 mg capsule Active 200 MG PO Daily at bedtime December 17, 2024 12:00am Complies with drug therapy Start: 12-08-2023 take 1 capsule by pr ut in the morning gabapentin (Neurontin) 100 MG capsule Indications: DDD (degenerative disc disease), cervical Take 1 capsule (100 mg) by mouth in the morning and 1 capsule (100 mg) before bedtime. 60 capsule 2 12/08/2023 Active Start: 04-04-2022 End: 12-17-2024 take 2 capsules by mouth three times daily Gabapentin 100 mg capsule Discontinued 200 MG PO Three times daily 0 April 04, 2022 1:12pm December 17, 2024 2:27pm Start: 04-04-2022 take 200 mg by mouth [...] 2022 1:12pm Start: 03-14-2022 End: 04-09-2022 take 1 capsule by mouth twice daily Gabapentin 100 mg capsule Discontinued 100 MG PO Twice daily March 14, 2022 12:00am April 09, 2022 12:27pm Start: 07-20-2020 End: 03-14-2022 take 1 capsule by mouth three times daily Gabapentin 300 mg Capsule Discontinued 300 MG PO Three times daily August 10, 2020 4:48pm March 14, 2022 2:41am Insulin Aspart U-100 (Novolog Flexpen U-100 Insulin) 100 unit/mL (3 mL) Insulin Pen (8 sources) Start: 12-17-2024 inject 1 dose by subcutaneous injection at bedtime Insulin Aspart U-100 (Novolog Flexpen U-100 Insulin) 100 unit/mL (3 mL) Insulin Pen Active 1 sliding scale dose SUBCUT Before meals and at bedtime December 17, 2024 12:00am Start: 04-05-2022 End: 12-17-2024 Insulin Aspart U-100 (Novolo g Flexpen U-100 Insulin) 100 unit/mL (3 mL) Insulin Pen Discontinued 0 UNITS SUBCUT Before meals and at bedtime April 05, 2022 12:00am December 17, 2024 2:27pm Start: 04-05-2022 Insulin Aspart U-100 (Novolog Flexpen U-100 Insulin) 100 unit/mL (3 mL) Insulin Pen Active 0 UNITS SUBCUT Before meals and at bedtime April 05, 2022 12:00am 3 ml insulin glargine 100 unt/ml pen injector (16 sources) Insulin Analog Start: 12-19-2023 insulin glargine (Lantus SoloStar) 100 UNIT/ML pen Indications: Type 2 diabetes mellitus with hyperglycemia, with long-term current use of insulin (HCC) INJECT 40 UNITS SUBCUTANEOUSLY EVERY DAY 5 each 3 12/19/2023 Active 24 hr isosorbide mononitrate 30 mg extended release oral tablet (20 sources) Nitrate Vasodilator Start: 03-14-2022 End: 01-19-2026 take 1 tablet by mouth once daily isosorbide mononitrate ER (Imdur) 30 MG 24 hr tablet Indications: CAD in [place] artery Take 1 tablet (30 mg) by mouth Daily 30 tablet 11 11/26/2023 01/19/2026 Active levothyroxine sodium 0.2 mg oral tablet (20 sources) l-Thyroxine Start: 12-17-2024 take 1 tablet by mouth once daily levothyroxine (Synthroid, Levoxyl) 200 MCG tablet Take 200 mcg by mouth Daily 12/27/2024 Active Start: 04-09-2022 End: 12-17-2024 Levothyroxine (Synthroid) 20 0 mcg Tablet Discontinued 250 MCG PO Daily April 09, 2022 12:00December 17, 2024 2:27pm Start: 04-09-2022 Levothyroxine (Synthroid) 200 mcg Tablet Active 250 MCG PO Daily April 09, 2022 12:00am Start: 04-09-2022 Levothyroxine (Synthroid) 200 mcg Tablet Active 250 MCG PO Daily April 09, 2022 12:00am Start: 07-20-2020 End: 04-09-2022 take 1 tablet by mouth once daily Levothyroxine 200 mcg tablet Discontinued 200 MCG PO Daily at 629July 20, 2020 1:00am April 09, 2022 12:27pm Start: 07-20-2020 End: 07-20-2020 take 1 tablet by mouth once daily Levothyroxine (Synthroid) 25 mcg Tablet Discontinued 25 MCG PO Daily July 20, 2020 1:00am July 20, 2020 6:14pm liothyronine sodium 0.005 mg oral tablet (12 sources) l-Triiodothyronine Start: 01-13-2025 take 1 tablet by mouth once daily liothyronine (Cytomel) 5 MCG tablet TAKE 1 TABLET BY MOUTH EVERY DAY ON EMPTY STOMACH FOR 30 DAYS 01/13/2025 Active lisinopril 20 mg oral tablet (20 sources) Angiotensin Converting Enzyme Inhibitor Start: 12-17-2024 take 1 tablet by mouth once daily at bedtime Lisinopril 20 mg tablet Active 20 MG PO Daily at bedtime December 17, 2024 12:00am Complies with drug therapy Start: 03-14-2022 End: 12-17-2024 take 1 tablet by mouth once daily lisinopril 40 MG tablet Indications: Essential hypertension, benign Take 1 tablet (40 mg) by mouth Daily 30 tablet 5 12/08/2023 Active Start: 07-20-2020 End: 08-07-2020 Lisinopril 2.5 mg Tablet Dis continued 20 MG PO Twice daily July 20, 2020 1:00am August 07, 2020 3:01pm Start: 07-20-2020 End: 08-07-2020 take 20 mg by mouth twice daily Lisinopril Discontinued 20 MG PO Twice daily July 20, 2020 1:00am August 07, 2020 3:01pm 24 hr metoprolol succinate 25 mg extended release oral tablet (3 sources) beta-Adrenergic Eva Start: 12-17-2024 take 1 tablet by mouth once daily in the morning Metoprolol Succinate 25 mg tablet extended release 24 hr Active 25 MG PO Every morning December 17, 2024 12:00am Complies with drug therapy nystatin [id number] unt/ml topical cream (20 sources) Polyene Antifungal Start: 12-09-2023 nystatin (Mycostatin) cream Indications: Skin candidiasis Apply topically 2 (two) times a day 30 g 3 12/09/2023 Active Start: 03-14-2022 End: 04-09-2022 Nystatin 100,000 unit/mL suzette pension Discontinued March 14, 2022 12:00am March 14, 2022 2:54am rOPINIRole 0.5 mg oral tablet (20 sources) Nonergot Dopamine Agonist Start: 12-10-2023 rOPINIRole (Requip) 0.5 MG tablet Indications: Restless leg syndrome TAKE 1 TABLET EVERY DAY AT BEDTIME 90 tablet 3 12/10/2023 Active Start: 03-14-2022 End: 12-17-2024 take 0.5 mg by mouth once daily at bedtime Ropinirole 5 mg Tablet Discontinued 0.5 MG PO Daily at bedtime March 14, 2022 12:00am December 17, 2024 2:15pm administer 1-3 hours before bedtime Start: 03-14-2022 take 0.5 mg by mouth once daily at bedtime Ropinirole Active 0.5 MG PO Daily at bedtime March 14, 2022 12:00am administer 1-3 hours before bedtime sertraline 100 mg oral tablet (20 sources) Serotonin Reuptake Inhibitor Start: 07-26-2020 take 1 tablet by mouth once daily sertraline (Zoloft) 100 MG tablet Indications: Depression, unspecified depression type TAKE 1 TABLET BY MOUTH DAILY 90 tablet 3 08/18/2023 Active Completed/Discontinued Medications Medication Drug Class(es) Dates Sig (Normalized) Sig (Original) acetaminophen 300 mg / codeine phosphate 30 mg oral tablet (9 sources) Opioid Agonist Start: 04-02-2022 End: 04-09-2022 take 1 tablet by mouth every six hours as needed for pain Acetaminophen-Code ine 300-30 mg tablet Discontinued 1 TAB PO Q6H as needed for Pain April 02, 2022 12:00am April 09, 2022 12:27pm acetaminophen 325 mg / HYDROcodone bitartrate 5 mg oral tablet (9 sources) Opioid Agonist Start: 07-27-2020 End: 08-10-2020 take 1 tablet by mouth four times daily as needed for pain Hydrocodone-Acetam inophen ([place]) 5-325 mg Tablet Discontinued 1 TAB PO Four times daily as needed for Pain July 27, 2020 1:00am August 10, 2020 4:49pm aspirin 81 mg chewable tablet (3 sources) Platelet Aggregation Inhibitor, Nonsteroidal Anti-inflammatory Drug Start: 12-17-2024 End: 02-25-2025 take 1 tablet by mouth once daily in the morning Aspirin 81 mg tablet,chewable Discontinued 81 MG PO Every morning December 17, 2024 12:00am February 25, 2025 11:40am baclofen 10 mg oral tablet (9 sources) gamma-Aminobutyric Acid-ergic Agonist Start: 07-26-2020 End: 08-10-2020 take 1 tablet by mouth three times daily as needed for pain Baclofen 10 mg tablet Discontinued 10 MG PO Three times daily as needed for Pain July 26, 2020 1:00am August 10, 2020 3:06pm Bevacizumab solution prefilled syringe 1.25 mg (2 sources) Start: 03-23-2025 End: 03-23-2025 Bevacizumab solution prefilled syringe 1.25 mg Start: 03-23-2025 End: 03-23-2025 1.25 mg, Intravitreal, Once PRN Procedure, Starting on Fri03/23/25 at 1419, For 1 dose ceFAZolin 200 mg/ml injectable solution (9 sources) Cephalosporin Antibacterial Start: 08-01-2020 End: 08-10-2020 take 10 g intravenously every eight hours Cefazolin 10 gram Recon Soln Discontinued 2 GM IV Q8H 105 August 01, 2020 1:00am August 10, 2020 3:06pm Start: 08-01-2020 End: 08-10-2020 take 2 g intravenously every eight hours Cefazolin Discontinued 2 GM IV Q8H 105 August 01, 2020 1:00am August 10, 2020 3:06pm celecoxib 200 mg oral capsule (18 sources) Nonsteroidal Anti-inflammatory Drug Start: 08-07-2020 End: 03-16-2022 take 1 capsule by mouth at bedtime Celecoxib (Celebrex) 200 mg capsule Discontinued 200 MG PO Bedtime August 07, 2020 1:00am March 16, 2022 9:32am Start: 07-20-2020 End: 08-02-2020 take 1 capsule by mouth twice daily as needed for anxiety Celecoxib 200 mg capsule Discontinued 200 MG PO Twice daily as needed for Anxiety July 20, 2020 1:00am August 02, 2020 2:52pm clotrimazole 10 mg/ml topical cream (12 sources) Azole Antifungal Start: 12-17-2024 End: 02-25-2025 Clotrimazole 1 % cream Discontinued 1 APPLIC TOPICAL Twice daily as needed for rash December 17, 2024 12:00am February 25, 2025 11:40am Start: 03-14-2022 End: 04-09-2022 Clotrimazole 1 % cream Disco ntinued 1 APPLIC TOPICAL Daily as needed for Dry Skin March 14, 2022 12:00am April 09, 2022 12:27pm colchicine 0.6 mg oral capsule (9 sources) Start: 07-20-2020 End: 07-20-2020 take 1 capsule by mouth twice daily Colchicine 0.6 mg Capsule Discontinued 0.6 MG PO Twice daily July 20, 2020 1:00am July 20, 2020 6:15pm dexamethasone 6 mg oral tablet (9 sources) Corticosteroid Start: 03-16-2022 End: 04-02-2022 take 1 tablet by mouth once daily Dexamethasone 6 mg Tablet Discontinued 6 MG PO Daily 01 14March 16, 2022 12:00am April 02, 2022 6:07pm hydroCHLOROthiazide 25 mg oral tablet (20 sources) Thiazide Diuretic Start: 03-14-2022 End: 03-14-2022 Hydrochlorothiazide Discontinued MG TABLET March 14, 2022 12:00am March 14, 2022 2:54am Start: 07-27-2020 End: 03-16-2022 take 1 tablet by mouth once daily Hydrochlorothiazide 25 mg Tablet Discontinued 25 MG PO Daily March 14, 2022 12:00am March 14, 2022 2:54am hydrOXYzine hydrochloride 25 mg oral tablet (9 sources) Antihistamine Start: 03-14-2022 End: 04-09-2022 take 1 tablet by mouth once daily at bedtime as needed for anxiety Hydroxyzine Hcl 25 mg tablet Discontinued 25 MG PO Daily at bedtime as needed for Anxiety March 14, 2022 12:00am April 09, 2022 12:27pm 3 ml insulin aspart, human 100 unt/ml pen injector (4 sources) Insulin Analog Start: 04-05-2022 End: 02-25-2025 inject 1 dose by subcutaneous injection at bedtime Insulin Aspart U-100 (Novolog Flexpen U-100 Insulin) 100 unit/mL (3 mL) Insulin Pen Discontinued 1 sliding scale dose SUBCUT Before meals and at bedtime December 17, 2024 12:00am February 25, 2025 11:41am 3 ml insulin detemir 100 unt/ml pen injector (9 sources) Insulin Analog Start: 03-16-2022 End: 12-17-2024 Insulin Detemir U-100 (Levemir Flextouch U100 Insulin) 100 unit/mL (3 mL) Insulin Pen Discontinued 40 UNIT SUBCUT Daily with breakfast 08 09March 16, 2022 12:00am December 17, 2024 2:13pm 3 ml insulin lispro 100 unt/ml pen injector (9 sources) Insulin Analog Start: 03-16-2022 End: 04-09-2022 Insulin Lispro (Humalog Kwikpen Insulin) 100 unit/mL Insulin Pen Discontinued 1 sliding scale dose SUBCUT Before meals and at bedtime Protocol: If the corrective scale dose has been administered within the past 4 hours, do not use corrective scale again unless otherwise directed Condition: 150-199 mg/dL Dose/Route: 2 unit Condition: 200-249 mg/dL Dose/Route: 3 unit Condition: 250-299 mg/dL Dose/Route: 5 unit Condition: 300-349 mg/dL Dose/Route: 7 unit Condition: 350-399 mg/dL Dose/Route: 8 unit Condition: greater than or = 400 mg/dL Dose/Route: 9 unit March 16, 2022 12:00am April 09, 2022 12:27pm Sliding Scale ACHS Please contact the information source for Protocol details. Start: 03-16-2022 End: 04-09-2022 inject 1 dose by subcutaneous injection at bedtime Insulin Lispro (Humalog Kwikpen Insulin) 100 unit/mL Insulin Pen Discontinued 1 sliding scale dose SUBCUT Before meals and at bedtime March 16, 2022 12:00am April 09, 2022 12:27pm Sliding Scale ACHS Please contact the information source for Protocol details. 3 ml liraglutide 6 mg/ml pen injector (9 sources) GLP-1 Receptor Agonist Start: 04-04-2022 End: 12-17-2024 inject 0.6 mg by subcutaneous injection once daily, then inject 1.2 mg by subcutaneous injection once daily, then inject 1.8 mg by subcutaneous injection once daily Liraglutide (Victoza 3-Bora) 0.6 mg/0.1 mL (18 mg/3 mL) pen injector Discontinued 1.8 MG SUBCUT Daily April 04, 2022 12:00am December 17, 2024 2:22pm start 0.6 mg sq daily x 1 [...] week then 1.8 mg sq daily thereafter pioglitazone 30 mg oral tablet (9 sources) Peroxisome Proliferator Receptor alpha Agonist, Peroxisome Proliferator Receptor gamma Agonist, Thiazolidinedione Start: 03-14-2022 End: 04-09-2022 take 1 tablet by mouth once daily Pioglitazone 30 mg tablet Discontinued 30 MG PO Daily March 14, 2022 12:00am April 09, 2022 12:27pm predniSONE 10 mg oral tablet (9 sources) Start: 03-14-2022 End: 03-16-2022 take 2 tablets by mouth once daily Prednisone 10 mg tablet Discontinued 20 MG PO Daily March 14, 2022 12:00am March 16, 2022 9:32am Start: 03-14-2022 End: 03-16-2022 take 20 mg by mouth once daily Prednisone Discontinued 20 MG PO Daily March 14, 2022 12:00am March 16, 2022 9:32am traZODone hydrochloride 50 mg oral tablet (9 sources) Serotonin Reuptake Inhibitor Start: 03-14-2022 End: 04-02-2022 take 1 tablet by mouth once daily at bedtime Trazodone 50 mg Tablet Discontinued 50 MG PO Daily at bedtime March 14, 2022 12:00am April 02, 2022 6:08pm triamcinolone acetonide 1 mg/ml topical lotion (9 sources) Corticosteroid Start: 08-02-2020 End: 04-09-2022 Triamcinolone Acetonide 0.1 % Lotion Discontinued 1 APPLIC TOPICAL Twice daily 0 August 02, 2020 1:00am April 09, 2022 12:27pm zinc sulfate 220 mg oral capsule (9 sources) Start: 03-16-2022 End: 04-02-2022 Zinc Sulfate (Orazinc) 50 mg zinc (220 mg) Capsule Discontinued 220 MG PO Daily 31 7 March 16, 2022 12:00am April 02, 2022 6:08pm Problems Active Problems Problem Classification Problem Date Documented Da te Episodic/Chronic Acute and unspecified renal failure (13 sources) Injury of kidney; Translations: [Acute kidney failure, unspecified] 03-14-2022 Episodic Anxiety disorders (13 sources) Generalized anxiety disorder; Translations: [Generalized anxiety disorder] Onset: 09-16-2023 09-16-2023 Chronic Bacterial infection; unspecified site (9 sources) Bacteremia due to Staphylococcus aureus; Translations: [Bacteremia] 08-15-2020 Episodic Cardiac dysrhythmias (11 sources) Paroxysmal atrial fibrillation; Translations: [Paroxysmal atrial fibrillation] Onset: 10-28-2024 08-15-2020 Chronic Cataract (7 sources) Bilateral age-related nuclear cataracts; Translations: [Age-related nuclear cataract, bilateral] Onset: 03-08-2025 03-08-2025 Chronic Chronic kidney disease (14 sources) Chronic kidney disease stage 3; Translations: [Stage 3 chronic kidney disease] Onset: 05-20-2022 03-14-2022 Chronic Chronic kidney disease (1 source) Chronic kidney disease; Translations: [CHRONIC KIDNEY DISEASE STAGE 3A] Onset: 01-28-2022 Chronic obstructive pulmonary disease and bronchiectasis (13 sources) Chronic obstructive lung disease; Translations: [Chronic obstructive pulmonary disease, unspecified] Onset: 09-16-2023 09-16-2023 Chronic Congestive heart failure; nonhypertensive (13 sources) Congestive heart failure; Translations: [Heart failure, unspecified] 04-02-2022 Chronic Coronary atherosclerosis and other heart disease (18 sources) Atherosclerotic heart disease of [place] coronary artery without angina pectoris; Translations: [Unstable angina] Onset: 05-20-2022 Chronic Diabetes mellitus with complications (20 sources) Type 2 diabetes mellitus with hyperglycemia; Translations: [Type 2 diabetes mellitus with diabetic chronic kidney disease] Onset: 07-06-2018 Chronic Diabetes mellitus without complication (20 sources) Diabetes mellitus; Translations: [Type 2 diabetes mellitus without complications] Onset: 02-05-2022 03-14-2022 Chronic Diabetes mellitus without complication (13 sources) Hyperglycemia; Translations: [Hyperglycemia, unspecified] 03-14-2022 Episodic Diseases of white blood cells (9 sources) Leukocytosis; Translations: [Elevated white blood cell count, unspecified] 07-20-2020 Chronic Disorders of lipid metabolism (14 sources) Hyperlipidemia, unspecified; Translations: [Dyslipidemia] Onset: 12-22-2022 09-16-2023 Chronic E Codes: Fall (16 sources) Fall; Translations: [Unspecified fall, initial encounter] Onset: 01-21-2022 04-02-2022 Episodic Esophageal disorders (14 sources) Gastro-esophageal reflux disease without esophagitis; Translations: [Gastroesophageal reflux disease] Onset: 05-20-2022 09-16-2023 Chronic Essential hypertension (20 sources) Hypertensive disorder; Translations: [Essential (primary) hypertension] Onset: 12-22-2022 03-14-2022 Chronic Fever of unknown origin (9 sources) Fever; Translations: [Fever, unspecified] 07-20-2020 Episodic Fluid and electrolyte disorders (20 sources) Hyponatremia; Translations: [Hypo-osmolality and hyponatremia] 03-14-2022 Episodic Genitourinary symptoms and ill-defined conditions (8 sources) Blood in urine; Translations: [Hematuria, unspecified] 04-12-2022 Episodic Hypertension with complications and secondary hypertension (3 sources) Hypertensive chronic kidney disease with stage 1 through stage 4 chronic kidney disease, or unspecified chronic kidney disease; Translations: [Hypertensive heart disease with heart failure] Onset: 05-20-2022 Chronic Immunity disorders (13 sources) Hypergammaglobulinemi a; Translations: [Hypergammaglobulinem ia, unspecified] 08-15-2020 Chronic Malaise and fatigue (20 sources) Asthenia; Translations: [Weakness] Onset: 01-28-2022 08-07-2020 Episodic Mood disorders (1 source) Major depressive disorder, single episode, unspecified; Translations: [NAHEED DEPRESS D/O SINGLE EPIS UNS] Onset: 05-20-2022 Chronic Mycoses (2 sources) Onychomycosis due to dermatophyte ; Translations: [Tinea unguium] 01-19-2025 Episodic Osteoarthritis (14 sources) Unilateral primary osteoarthritis, left hip; Translations: [Primary gonarthrosis, bilateral] Onset: 05-29-2022 09-16-2023 Chronic Other aftercare (1 source) Other senior living (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; Translations: [OTH VERIFICATION REP CURRENT DRUG THERAPY] Onset: 12-22-2022 Episodic Other aftercare (6 sources) Long-term current use of insulin; Translations: [terminal clerk (current) use of insulin] 01-19-2025 Episodic Other circulatory disease (2 sources) Other specified disorders of arteries and arterioles; Translations: [Other specified disorders of arteries and arterioles] Onset: 11-18-2024 Chronic Other circulatory disease (1 source) Low blood pressure; Translations: [Hypotension, unspecified] Episodic Other fractures (1 source) Wedge compression fracture of T9-T10 vertebra, subsequent encounter for fracture with routine healing; Translations: [Wedge compression fracture of T9-T10 vertebra, subsequent encounter for fracture with routine healing] Onset: 02-25-2025 Episodic Other gastrointestinal disorders (9 sources) Abdominal mass; Translations: [Intra-abdominal and pelvic swelling, mass and lump, unspecified site] 08-15-2020 Episodic Other hematologic conditions (9 sources) ESR raised; Translations: [Elevated erythrocyte sedimentation rate] 08-07-2020 Episodic Other hereditary and degenerative nervous system conditions (13 sources) Restless legs; Translations: [Restless legs syndrome] Onset: 09-16-2023 09-16-2023 Chronic Other liver diseases (1 source) Unspecified cirrhosis of liver; Translations: [UNSPECIFIED CIRRHOSIS OF LIVER] Onset: 05-20-2022 Chronic Other liver diseases (1 source) Fatty (change of) liver, not elsewhere classified; Translations: [FATTY CHANGE LIVER NEC] Onset: 05-20-2022 Chronic Other liver diseases (13 sources) Cirrhosis of liver; Translations: [Unspecified cirrhosis of liver] Onset: 09-16-2023 09-16-2023 Chronic Other lower respiratory disease (9 sources) Hypoxemia; Translations: [Hypoxemia] 04-08-2022 Episodic Other lower respiratory disease (4 sources) Hypoxemia; Translations: [Hypoxemia] 04-09-2022 Episodic Other lower respiratory disease (3 sources) Shortness of breath; Translations: [SHORTNESS OF BREATH] Onset: 01-28-2022 Episodic Other nutritional; endocrine; and metabolic disorders (9 sources) Morbid obesity; Translations: [Morbid (severe) obesity due to excess calories] 08-15-2020 Chronic Other nutritional; endocrine; and metabolic disorders (9 sources) Hypomagnesemia; Translations: [Hypomagnesemia] 08-07-2020 Chronic Other nutritional; endocrine; and metabolic disorders (7 sources) Morbid (severe) obesity due to excess calories; Translations: [Morbid obesity] Onset: 01-28-2022 04-09-2022 Chronic Other nutritional; endocrine; and metabolic disorders (3 sources) Body mass index (BMI) 45.0-49.9, adult; Translations: [BODY MASS INDEX BMI 45.0-49.9 ADULT] Onset: 01-28-2022 Chronic Other nutritional; endocrine; and metabolic disorders (1 source) Body mass index (BMI) 50.0-59.9, adult; Translations: [BODY MASS INDEX BMI 50.0-59.9 ADULT] Onset: 01-21-2022 Chronic Other nutritional; endocrine; and metabolic disorders (13 sources) Hyperammonemia, type III; Translations: [Disorder of urea cycle metabolism, unspecified] Onset: 09-16-2023 09-16-2023 Chronic Other nutritional; endocrine; and metabolic disorders (4 sources) Failure to thrive 04-08-2022 Episodic Other screening for suspected conditions (not mental disorders or infectious disease) (9 sources) Raised TSH level; Translations: [Other specified abnormal findings of blood chemistry] Onset: 12-22-2022 04-12-2022 Episodic Other skin disorders (9 sources) Eruption; Translations: [Rash and other nonspecific skin eruption] 08-15-2020 Episodic Other skin disorders (2 sources) Dystrophia unguium; Translations: [Nail dystrophy] 01-19-2025 Episodic Other upper respiratory disease (13 sources) Allergic rhinitis due to pollen; Translations: [Allergic rhinitis due to pollen] Onset: 09-16-2023 09-16-2023 Chronic Mireya-; endo-; and myocarditis; cardiomyopathy (except that caused by tuberculosis or sexually transmitted disease) (9 sources) Staphylococcal endocarditis; 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 subacute infective endocarditis] 08-15-2020 Episodic Residual codes; unclassified (20 sources) Obstructive sleep apnea syndrome; Translations: [Obstructive sleep apnea (adult) (pediatric)] Onset: 09-16-2023 04-08-2022 Chronic Residual codes; unclassified (5 sources) Obstructive sleep apnea (adult) (pediatric); Translations: [Obstructive sleep apnea (adult)(pediatric)] Onset: 05-20-2022 04-09-2022 Chronic Residual codes; unclassified (9 sources) Unable to perform personal care activity; Translations: [Other specified health status] 04-02-2022 Episodic Residual codes; unclassified (4 sources) Other specified health status; Translations: [Other specified conditions influencing health status] 04-09-2022 Episodic Spondylosis; intervertebral disc disorders; other back problems (20 sources) Lumbosacral spondylosis with radiculopathy; Translations: [Other spondylosis with radiculopathy, lumbosacral region] Onset: 09-16-2023 09-16-2023 Chronic Spondylosis; intervertebral disc disorders; other back problems (13 sources) Backache; Translations: [Dorsalgia, unspecified] Onset: 02-01-2022 08-15-2020 Episodic Superficial injury; contusion (16 sources) Abrasion, elbow area; Translations: [Abrasion of unspecified elbow, initial encounter] Onset: 01-21-2022 04-02-2022 Episodic Thyroid disorders (20 sources) Hypothyroidism; Translations: [Hypothyroidism, unspecified] Onset: 05-20-2022 04-08-2022 Chronic Unclassified (9 sources) Failure to thrive; Translations: [Failure to thrive] 04-08-2022 Unclassified (1 source) LOW BACK PAIN, UNSPECIFIED; Translations: [LOW BACK PAIN, UNSPECIFIED] Onset: 02-05-2022 Unclassified (2 sources) COUGH, UNSPECIFIED; Translations: [COUGH, UNSPECIFIED] Onset: 01-28-2022 Unclassified (1 source) CONTACT W/AND (SUSP) EXPOS COVID-19; Translations: [CONTACT W/AND (SUSP) EXPOS COVID-19] Onset: 01-28-2022 Urinary tract infections (9 sources) Acute urinary tract infection; Translations: [Urinary tract infection, site not specified] 07-20-2020 Episodic Viral infection (13 sources) Disease caused by 2019-nCoV; Translations: [COVID-19] 03-14-2022 Episodic Past or Other Problems Problem Classification Problem Date Documented Da te Episodic/Chronic Abdominal pain (1 source) Unspecified abdominal pain; Translations: [UNSPECIFIED ABDOMINAL PAIN] Onset: 01-28-2022 Episodic Acute bronchitis (1 source) Acute bronchitis, unspecified; Translations: [ACUTE BRONCHITIS UNSPECIFIED] Onset: 01-28-2022 Episodic Nonspecific chest pain (1 source) Other chest pain; Translations: [OTHER CHEST PAIN] Onset: 01-28-2022 Episodic Other aftercare (1 source) terminal clerk (current) use of insulin; Translations: [CORRECTION CURRENT USE OF INSULIN] Onset: 05-20-2022 Episodic [...] [HISTORY OF FALLING] Onset: 01-28-2022 Episodic Other non-traumatic joint disorders (3 sources) Pain in left knee; Translations: [PAIN IN LEFT KNEE] Onset: 01-18-2022 Episodic Residual codes; unclassified (1 source) Edema, unspecified; Translations: [EDEMA UNSPECIFIED] Onset: 01-28-2022 Episodic Residual codes; unclassified (13 sources) Insomnia; Translations: [Insomnia, unspecified] Onset: 09-16-2023 09-16-2023 Episodic Unclassified (1 source) COUGH, UNSPECIFIED; Translations: [COUGH, UNSPECIFIED] Onset: 01-24-2022 Results Test Name Value Interpretation Reference Range Facility Intravitreal Injection, Phar macologic Agent - OD - Right Eyeon 03-23-2025 [facility] Radiology Study observation (narrative) [facility] Optical coherence tomography study reporton 03-08-2025 Counts include 234 beds at the [facility] Radiology Study observation (narrative) [facility] CT lumbar spine w conon 02-08 CT lumbar spine w con [facility] [place] [address] [place] [address] Interventional Radiology Rpt Signed Patient: Evelin Patterson MR#: [id number] : 1955 Acct:[id number] Age/Sex: 69 / M ADM Date: 02/25/25 Loc: XD Room: Type: [facility] Attending Dr: Margot Singh MD Copies to: Margot Titus MD Ordering Provider: Margot Titus MD Date of Service: 02/25/25 IR/IR myelogram spine lumbosacral: S22.07OD, M51.372, M43.15 ([id number]) CT/CT lumbar spine w con: S22.07OD, M51.372, M43.15 CT LUMBAR MYELOGRAM Cumulative Air Kerma in mGy: 231 mGy. A total of 8 images obtained. TECHNIQUE: Informed consent was obtained. With fluoroscopic guidance, the skin entry site for lumbar puncture was localized. Sterile prep and drape was performed. Local lidocaine was administered. A 22-gauge spinal needle was utilized. Adequate position confirmed with return of clear colorless CSF. 17 cc of Isovue-200 administered. The needle was removed and adequate hemostasis obtained. Patient experienced no immediate complications. Patient sent to CT suite in satisfactory condition. No complications. Patient discharged in satisfactory condition.. IR/IR myelogram spine lumbosacral IMPRESSION: SUCCESSFUL FLUOROSCOPICALLY GUIDED LUMBAR PUNCTURE. Axial lumbar spine with reconstructed sagittal and coronal 2-D imaging. HISTORY: Left hip and low back pain for 2 to 3 years. Weakness. History of T10 compression fracture. FINDINGS: Lumbar lordosis is maintained. No acute vertebral body compression deformity seen. The conus medullaris is unremarkable. T11-T12 level: No herniation identified. No central canal stenosis identified. No significant neuroforaminal narrowing identified. T12-L1 level: No herniation identified. No central canal stenosis identified. Mild bilateral bony neural foraminal narrowing L1-L2 level: No herniation identified. No central canal stenosis identified. Mild bilateral bony neural foraminal narrowing L2-L3 level: No herniation identified. No central canal stenosis identified. Mild bilateral bony neural foraminal narrowing L3-L4 level: Mild diffuse disc bulge. Mild central canal stenosis is identified. Posterior element hypertrophy mild to moderate bilateral bony neural foraminal narrowing. Facet degeneration L4-L5 level: Disc space narrowing noted. Diffuse disc bulge identified. Mild central canal stenosis. Posterior element hypertrophy moderate bilateral bony neural foraminal narrowing L5-S1 level: Mild diffuse disc bulge No central canal stenosis identified. No significant neuroforaminal narrowing identified. No hydronephrosis seen. No abdominal aortic aneurysm seen. Mild bilateral SI joint degenerative changes. Subchondral cystic changes of the right femoral head. Chronic AVN may be present. Developed compared to prior CT of abdomen and pelvis 08/30/2020. Incompletely visualized left hip unremarkable. IMPRESSION: Mild to moderate multilevel discovertebral degenerative changes. Mild central canal stenosis. Mild bilateral SI joint degeneration. Chronic AVN changes of the right femoral head. Developed since prior examination 08/30/2020 CT abdomen and pelvis. Impression dictated by: Michael Tinajero M.D. 02/25/2025 1:51 PM Dictation Location: [place] [address] Transcribed By: [facility] 02/25/25 1351 Dictated By: Michael Tinajero DO 02/25/25 1335 Signed By: 02/25/25 1351 [facility] Physician [facility] INR in Platelet poor plasma by Coagulation assayOrdered By: Arline Rouse on 02-25-2025 INR Coag (PPP) [Relative time] 1.0 {INR} Normal [facility] Comment on above: INR Therapeutic Rang e A) Pre- and Peroperative OAT started two weeks before surgery. NOT HIP SURGERY: 1.5 - 2.5 HIP SURGERY: 2 - 3B) Primary and secondary prevention of venous THROMBOSIS: 2 - 3C) Active venous thrombosis, pulmonary embolismand prevention of recurrent venous thrombosis: 2 - 3D) Prevention of arterial thromboembolismincluding patients with mechanical heart valves: 3 - 4.5 Result Comment: INR Therapeutic Range A) Pre- [...] with mechanical heart valves: 3 - 4.5 PERFORMED BY: [place] [id number] PATHOLOGIST [employer] COACH HILDA LEE M.D. Performed By: #### P T, PLT #### [address] Interventional radiology rep ortOrdered By: Michael Tinajero on 02-25-2025 Study report [facility] [place] [address] [place] [address] Interventional Radiology Rpt Signed Patient: Evelin Patterson MR#: [id number] : 1955 Acct:[id number] Age/Sex: 69 / M ADM Date: 5 Loc: XD Room: Type: [facility] Attending Dr: Margot Singh MD Copies to: Margot Titus MD~ Ordering Provider: Margot Titus MD Date of Service: 02/25/25 IR/IR myelogram spine lumbosacral: S22.07OD, M51.372,M43.15 ([id number]) CT/CT lumbar spine w con: S22.07OD, M51.372, M43.15 CT LUMBAR MYELOGRAM Cumulative Air Kerma in mGy: 231 mGy. A total of 8 images obtained. TECHNIQUE: Informed consent was obtained. With fluoroscopic guidance, the skin entry site for lumbar puncture was localized. Sterile prep and drape was performed. Local lidocaine was administered. A 22-gauge spinal needle was utilized. Adequate position confirmed with return of clear colorless CSF. 17 cc of Isovue-200 administered. The needle was removed and adequate hemostasis obtained. Patient experienced no immediate complications. Patient sent to CT suite in satisfactory condition. No complications. Patient discharged in satisfactory condition.. IR/IR myelogram spine lumbosacral IMPRESSION: SUCCESSFUL FLUOROSCOPICALLY GUIDED LUMBAR PUNCTURE. Axial lumbar spine with reconstructed sagittal and coronal 2-D imaging. HISTORY: Left hip and low back pain for 2 to 3 years. Weakness. History of [id number] fracture. FINDINGS: Lumbar lordosis is maintained. No acute vertebral body compression deformity seen. The conus medullaris is unremarkable. T11-T12 level: No herniation identified. No central canal stenosis identified. No significant neuroforaminal narrowing identified. T12-L1 level: No herniation identified. No central canal stenosis identified. Mild bilateral bony neural foraminal narrowing L1-L2 level: No herniation identified. No central canal stenosis identified. Mild bilateral bony neural foraminal narrowing L2-L3 level: No herniation identified. No central canal stenosis identified. Mild bilateral bony neural foraminal narrowing L3-L4 level: Mild diffuse disc bulge. Mild central canal stenosis is identified. Posterior element hypertrophy mild to moderate bilateral bony neural foraminal narrowing. Facet degeneration L4-L5 level: Disc space narrowing noted. Diffuse disc bulge identified. Mild central canal stenosis. Posterior element hypertrophy moderate bilateral bony neural foraminal narrowing L5-S1 level: Mild diffuse disc bulge No central canal stenosis identified. No significant neuroforaminal narrowing identified. No hydronephrosis seen. No abdominal aortic aneurysm seen. Mild bilateral SI joint degenerative changes. Subchondral cystic changes of the right femoral head. Chronic AVN maybe present. Developed compared to prior CT of abdomen and pelvis 08/30/2020. Incompletely visualized left hip unremarkable. IMPRESSION: Mild to moderate multilevel discovertebral degenerative changes. Mild central canal stenosis. Mild bilateral SI joint degeneration. Chronic AVNchanges of the right femoral head. Developed since prior examination 08/30/2020 CT abdomen and pelvis. Impression dictated by: Michael Tinajero M.D. 02/25/2025 1:51 PM Dictation Location: [place] [address] Transcribed By: [place] 02/25/25 1351 Dictated By: Michael Tinajero DO 02/25/25 1335 Signed By: 02/25/25 1351 [facility] Platelets [#/volume] in Bloo d by Automated countOrdered By: Arline Rouse on 02-25-2025 Platelets (Bld) [#/Vol] 228 10*3/uL Normal 150-450 [facility] Comment on above: Result Comment: PERF ORMED BY: [place] [address] PATHOLOGIST [employer] COACH HILDA LEE M.D. Performed By: #### P T, PLT #### [facility] [address] [place] [address] Prothrombin time (PT)Ordered By: Arline Rouse on 02-25-2025 PT Coag (PPP) [Time] 11.2 s Normal 9.0-12.9 [facility] Comment on above: A hematocrit value g reater than 55% may lead to inaccurate results in coagulation testing. Patients having hematocrit values >55% require a special collection tube for coagulation studies. Please contact the laboratory at [phone] for redraw instructions. Result Comment: A he matocrit value greater than 55% may lead to inaccurate results in coagulation testing. Patients having hematocrit values >55% require a special collection tube for coagulation studies. Please contact the laboratory at [phone] for redraw instructions. Performed By: #### P T, PLT #### [facility] [address] [place], [place] [id number] [place] Orders Onlyon 12-29-2024 Orders Only [id number] Karthik Patterson L 1955 M Date Provider Department [place] 12/29/2024 [id number], HISTORICAL CARD Nery Castro Family History Problem Relation Age of Onset No Known Problems Mother No Known Problems Father Family Status - Relation Status Age at Mother Father Normal [facility] 36on 11-24-[address] Hays made aw are yesterday that patient had lipid panel in October 2024. He said patient does not need repeat labs at this time. Patient made aware. Normal [facility] 36on 11-22-2024 36 S/p heart cath on 11/18/2024, Dr. Hays would like lipid/LFT's on patient prior to his apt in January 2025. LM for patient to return my call. Orders put in and faxed to [facility]. [facility] ANESon 11-18-2024 ANES ------ -- Attestation signed by Gladys Hays MD at 11/18/2024 12:05 PM Gladys Hays MD, MPH, [facility], [facility], [facility] Interventional Cardiology Pager Email: [email or web address] -- Patient: Evelin Patterson Procedure Information Date/Time: 11/18/24 1145 Procedure: Coronary angiography - RIJ LR Location: [facility] TILE MOLDER HAND 2 BIPLANE / [facility] (Cath) Providers: Gladys Hays MD Clinical information reviewed: Allergies Meds Physical Exam Airway Mallampati: III Cardiovascular Rhythm: irregular Rate: normal (-) murmur Dental Pulmonary (-) decreased breath sounds Abdominal (+) obese Anesthesia Plan ASA 3 other (Conscious Sedation ) intravenous induction Anesthetic plan and risks discussed with patient. Use of blood products discussed with patient who consented to blood products. Plan discussed with attending. Additional Equipment Requests [facility] HPon 11-18-2024 HP ------ -- Attestation with edits by Gladys Hays MD at 11/18/2024 12:11 PM Gladys Hays MD, MPH, [facility], [facility], [facility] Interventional Cardiology Pager Email: [email or web address] -- H&P reviewed. The patient was examined and there are no changes to the H&P. Proceed with RHC and CORS for dyspnea, unstable angina. Saul Diego MD PGY-5 [employer] Sales[employer] [facility] Pager # [phone] Normal [facility] NURSNOTEon 11-18-2024 NURSNOTE RN educated pt on d/ c instructions. This included: site care, limited physical activity, resume normal diet, future appointments, medications, and moderate sedation instructions. RN educated pt on when to notify physician and when to go to the hospital. RN provided pt with arm sling and educated pt on importance of not using arm for 24 hours for radial sites. RN encouraged pt to voice any questions or concerns, and answered any questions or concerns if pt verbalized. Pt was wheeled off of unit with all of belongings. Normal [facility] Orders Onlyon 11-10-2024 Orders Only [id number] Karthik Patterson as L 1955 M Date Provider Department Center 11/10/2024 MARGARITA TURNER [facility] Family History Problem Relation Age of Onset No Known Problems Mother No Known Problems Father Family Status - Relation Status Age at Mother Father Normal [facility] 36on 11-02-2024 36 Left message script sent into [employer] in [facility] 36 Patient states since he started Carvedilol. He has been taking for 2 to 3 days, patient states he's very fatigued, having hallucinations. Would you like to make a change, or recommendations. Please advise. [facility] Cardiology Clinic Note Chief Complaint: New patient here to re-establish care. He had heart cath back in 2009 at [facility]. He was diagnosed with afib in February 2024, and he's only been taking Eliquis once daily. He's requesting clearance for upcoming colonoscopy. He has intermittent angina and SOB with exertion. Sometimes feels near-syncope. Says he passed out a few years ago. HPI: Evelin Patterson is a 68 y.o. male With a known history of mild coronary artery disease, hypertension, morbid obesity, type 2 diabetes mellitus on insulin, and chronic kidney disease here to reestablish care He was recently admitted to the hospital with COVID; he was found to be in atrial fibrillation. He was started on Eliquis. He requires upcoming colonoscopy for GI symptoms. He reports multiple episodes of exertional chest pressure and shortness of breath. These have been escalating. He denies orthopnea or paroxysmal external dyspnea. He has mild lower extremity edema. He denies palpitations but does have significant postural lightheadedness and dizziness and near syncopal episodes. Cardiology ROS: Review of Systems Cardiovascular: Positive for chest pain, dyspnea on exertion and near-syncope. Musculoskeletal: Positive for arthritis, back pain, joint pain and joint swelling. Neurological: Positive for dizziness and light-headedness. All other systems reviewed and are negative. Past Medical History He has no past medical history on file. Surgical History He has no past surgical history on file. Social History He has no history on file for tobacco use, alcohol use, and drug use. Family History No family history on file. Allergies Patient has no allergy information on record. Medications No current outpatient medications on file. Last Recorded Vitals BP (!) 142/100 (BP Location: Left arm, Patient Position: Sitting) Pulse 74 Ht 1.778 m (5' 10 ) Wt (!) 155 kg (341 lb) SpO2 98% BMI 48.93 kg/m??? Physical Examination: GENERAL: alert and oriented x3, well developed, in no acute distress. HEAD: atraumatic, normocephalic. EYES: DAVID, EOMI. NECK: trachea midline, no JVD present, no carotid bruits present. CARDIAC: S1, S2 present. RRR. No murmur, rubs, or gallops. RESPIRATORY: CTAB, no increased effort of breathing, no rales, rhonchi, or wheezing. ABDOMEN: soft, nontender, nondistended. EXTREMITIES: no lower extremity edema, peripheral pulses are 2+ bilaterally. No rash/skin discoloration present. NEURO: strength/sensation equal and symmetric in bilateral upper and lower extremities. PSYCH: appropriate mood, affect, and judgement. Investigations: Cardiac catheterization 09/28/2009 Principal findings: 1. Mild single-vessel coronary artery disease involving the proximal right coronary artery 2. Evidence of radial artery spasm relieved with nitroglycerin 3. Normal left ventricular systolic function 12-lead EKG 10/28/2024: Normal sinus rhythm, sinus arrhythmia Assessment: Coronary artery disease Chest pain/Unstable angina Dyspnea on exertion Hypertension - Poorly controlled Near syncope Atrial fibrillation? Diabetes mellitus COPD Spine disorder Morbid obesity BMI 45-49 Preoperative evaluation Plan: Optimal medical therapy for coronary artery disease should include aspirin/DOAC, moderate to high intensity statin in the form of atorvastatin or rosuvastatin (will switch from Zocor), a beta-eva and a RAAS inhibitor The patient is not on a beta-eva; will start Coreg 3.125 mg p.o. twice daily given DM Given diabetes and vascular disease, he should be on an SGLT2 inhibitor or GLP-1 receptor agonist. Will defer to internal further lab testing given his chronic kidney disease. A 30-day event monitor may be warranted particular given his diagnosis of atrial fibrillation for which I have no documentation as well as his symptoms of lightheadedness, dizziness, and near syncope Given his symptoms of unstable angina, and the need for more refined risk stratification prior to upcoming procedures, I have recommended proceeding directly with cardiac catheterization; we will schedule him for a right heart catheterization and coronary angiography via a right internal jugular and left radial approach given his body habitus. Will defer any elective procedures or surgeries until further cardiovascular testing can be completed. Gladys Hays MD, MPH, FACC, KEVIN, [facility] Interventional Cardiology Pager Email: [email or web address] Normal [facility] Office Visiton 10-28-2024 Follow-up visit [id number] Patterson,Karthik as L 1955 M Date Provider Department Center 10/28/2024 COLETTEBharatiGRANT CARD [facility] Family History Problem Relation Age of Onset No Known Problems Mother No Known Problems Father Family Status - Relation Status Age at Mother Father Level of Service:66969 [place] OFFICE/OUTPATIENT NEW HIGH MDM 60 MINUTES Normal [facility] Orders Onlyon 10-28-2024 Orders Only [id number] Karthik Patterson as L 1955 M Date Provider Department Center 10/28/2024 JADEN HONG CARD [facility] Family History Problem Relation Age of Onset No Known Problems Mother No Known Problems Father Family Status - Relation Status Age at Mother Father Normal [facility] Provider Letteron 06-14-2024 Provider Letter Provider Letter June 14, 2024 EVELIN PATTERSON [address] [facility] [address] [place] [address] : 1955 Dear Evelin , We have been trying to reach you with no success. It is important that you return our call upon receiving this letter. Also, at the time of your call, please provide us with your current information. Thank you for your prompt attention to this matter. Sincerely, Dr. Javid Haynes MD General Surgery [facility] Provider Letteron 04-09-2024 Provider Letter Provider Letter April 09, 2024 EVELIN PATTERSON [address] [facility] [address] [place] [address] : 1955 Dear Evelin , We have been trying to reach you with no success. It is important that you return our call regarding scheduling a consultation at our office upon receiving this letter. Also, at the time of your call, please provide us with your current information. Thank you for your prompt attention to this matter. Sincerely, [facility] [phone] [facility] Provider Letter Provider Letter April 09, 2024 EVELIN Tolliver [facility] [address] [place] [address] : 1955 Dear Evelin , We have been trying to reach you with no success. It is important that you return our call regarding your _ upon receiving this letter. Also, at the time of your call, please provide us with your current information. Thank you for your prompt attention to this matter. Sincerely, [facility] [phone] [facility] Provider Letteron 03-15-2024 Provider Letter Provider Letter March 15, 2024 EVELIN Tolliver [facility] [address] [place] [address] : 1955 Dear Evelin , We have been trying to reach you with no success. It is important that you return our call regarding a referral upon receiving this letter. Also, at the time of your call, please provide us with your current information. Thank you for your prompt attention to this matter. Sincerely, Dr. Javid Haynes MD General Surgery [facility] CBC AUTO DIFFon 12-19-2022 BASO # 0.1 103/ul Normal 0.0-0.1 [facility] Comment on above: Performed By: #### T SH, BMP #### [facility] [address] [place] [address] Dr. Ladan Diehl Basophils/100 WBC (Bld) 1.2 % Normal 0.2-2.0 [facility] Comment on above: Performed By: #### T SH, BMP #### [facility] [address] [place] [address] Dr. Ladan Diehl EO # 0.4 103/ul Normal 0.0-0.7 [facility] Comment on above: Performed By: #### T SH, BMP #### [facility] [address] [place] [address] Dr. Ladan Diehl Eosinophils/100 WBC (Bld) 4.9 % Normal 0.9-7.0 [facility] Comment on above: Performed By: #### T SH, BMP #### [facility] [address] [place] [address] Dr. Ladan Diehl Erythrocyte distribution width (RBC) [Ratio] 14.8 % Normal 11.0-15.0 [facility] Comment on above: Performed By: #### T SH, BMP #### [facility] [address] [place] [address] Dr. Ladan Diehl Hematocrit (Bld) [Volume fraction] 36.7 % Critically low 42.0-54.0 [facility] Comment on above: Performed By: #### T SH, BMP #### [facility] [address] [place] [address] Dr. Ladan Diehl Hemoglobin (Bld) [Mass/Vol] 12.0 g/dL Critically low 14.0-18.0 [facility] Comment on above: Performed By: #### T SH, BMP #### [facility] [address] [place] [address] Dr. Ladan Diehl IG # 0.01 10e3/ul Normal 0.00-0.03 [facility] Comment on above: Performed By: #### T SH, BMP #### [facility] [address] [place] [address] Dr. Ladan Diehl IG % 0.1 % Normal 0.0-0.5 [facility] Comment on above: Performed By: #### T SH, BMP #### [facility] [address] [place] [address] Dr. Ladan Diehl LYMPH # 2.0 103/ul Normal 1.2-3.8 [facility] Comment on above: Performed By: #### T SH, BMP #### [facility] [address] [place] [address] Dr. Ladan Diehl Lymphocytes/100 WBC (Bld) 27.1 % Normal 20.5-60.[address] [facility] Comment on above: Performed By: #### T SH, BMP #### [facility] [address] [place] [address] Dr. Ladan Diehl MANUAL DIFF REQ NO Normal [facility] Comment on above: Performed By: #### T SH, BMP #### [facility] [address] [place] [address] Dr. Ladan Diehl MCH (RBC) [Entitic mass] 29.6 pg Normal 25.9-34.[address] [facility] Comment on above: Performed By: #### T SH, BMP #### [facility] [address] [place] [address] Dr. Ladan Diehl MCHC (RBC) [Mass/Vol] 32.7 g/dL Normal 29.9-35.[address] [facility] Comment on above: Performed By: #### T SH, BMP #### [facility] [address] [place] [address] Dr. Ladan Diehl MCV (RBC) [Entitic vol] 90.6 fL Normal 80.0-94.[address] [facility] Comment on above: Performed By: #### T STEFF, BMP #### [facility] [address] [place] [address] Dr. Ladan Diehl MONO # 0.8 103/ul Normal 0.3-0.[address] [facility] Comment on above: Performed By: #### T STEFF, BMP #### [facility] [address] [place] [address] Dr. Ladan Diehl Monocytes/100 WBC (Bld) 10.4 % Normal 1.7-12.[address] [facility] Comment on above: Performed By: #### T STEFF, BMP #### [facility] [address] [place] [address] Dr. Ladan Dihel NEUT # 4.2 103/ul Normal 1.4-6.[address] [facility] Comment on above: Performed By: #### T SH, BMP #### [facility] [address] [place] [address] Dr. Ladan Diehl Neutrophils/100 WBC (Bld) 56.3 % Normal 43.0-75.[address] [facility] Comment on above: Performed By: #### T STEFF, BMP #### [facility] [address] [place] [address] Dr. Ladan Diehl Platelet mean volume (Bld) [Entitic vol] 9.9 fL Normal 9.5-13.[address] [facility] Comment on above: Performed By: #### T STEFF, BMP #### [facility] [address] [address] [address] Ladan Diehl PLT 227 103/ul Normal 150-[address] [facility] Comment on above: Performed By: #### T SH, BMP #### [facility] [address] [place] [address] Dr. Ladan Diehl RBC 4.05 106/ul Critically low 4.70-6.[address] [facility] Comment on above: Performed By: #### T SH, BMP #### [facility] [address] [place] [address] Dr. Ladan Diehl WBC 7.4 103/ul Normal 4.0-11.[address] [facility] Comment on above: Performed By: #### T SH, BMP #### [facility] [address] [place] [address] Dr. Ladan Diehl FREE T3on 12-19-2022 FREE T3 2.07 pg/mlL Critically low 2.18-3.[address] [facility] Comment on above: Performed By: #### T SH, BMP #### [facility] [address] [place] [address] Dr. Ladan Diehl FREE T4on 12-19-2022 Free T4 [Mass/Vol] 1.14 ng/dL Normal 0.76-1.[address] [facility] Comment on above: Performed By: #### T SH, BMP #### [facility] [address] [place] [address] Dr. Ladan Diehl GLYCOHEMOGLOBIN A1Con 2022 ADA RECOMMENDATION SEE BELOW Normal [facility] Comment on above: Result Comment: ADA RECOMMENDED LIMIT 4.0 - 6.0 ADA THERAPEUTIC TARGET < 7.0 ACTION SUGGESTED > 7.0 Performed By: #### T SH, BMP #### [facility] [address] [place] [address] Dr. Ladan Diehl Glucose [Mass/Vol] 134 mg/dL Normal [facility] Comment on above: Performed By: #### T SH, BMP #### [facility] [address] [place] [address] Dr. Ladan Diehl HbA1c (Bld) [Mass fraction] 6.3 % Critically high 4.5-6.2 [facility] Comment on above: Performed By: #### T SH, BMP #### [facility] [address] [address] [address] Ladan Diehl LIPID PROFILEon 12-19-2022 CHOL-HDL RATIO NORM SEE BELOW Normal [facility] Comment on above: Result Comment: 3.3 - 4.4 LOW RISK 4.4 - 7.1 AVERAGE RISK 7.1 - 11.0 MODERATE RISK >11.0 HIGH RISK Performed By: #### T SH, BMP #### [facility] [address] [address] [address] Ladan Diehl Cholesterol [Mass/Vol] 118 mg/dL Normal <=200 [facility] Comment on above: Performed By: #### T SH, BMP #### [facility] [address] [address] [address] Ladan Diehl Cholesterol in HDL [Mass/Vol] 43 mg/dL Normal 40-60 [facility] Comment on above: Performed By: #### T SH, BMP #### [facility] [address] [address] [address] Ladan Diehl Cholesterol in LDL [Mass/Vol] 48.8 mg/dL Normal [facility] Comment on above: Performed By: #### T SH, BMP #### [facility] [address] [address] [address] Ladan Diehl Cholesterol.total/Chol esterol in HDL [Mass ratio] 2.7 {ratio} Normal [facility] Comment on above: Performed By: #### T SH, BMP #### [facility] [address] [address] [address] Ladan Diehl HDL NORMAL > or = 60 mg/dl - LO W CARDIOVASCULAR RISK <40 mg/dl - HIGH CARDIOVASCULAR RISK Normal [facility] Comment on above: Performed By: #### T SH, BMP #### [facility] [address] [address] [address] Ladan Diehl LDL CALC NORMAL SEE BELOW Normal [facility] Comment on above: Result Comment: <100 mg/dl OPTIMAL 100 - 129 mg/dl NEAR OR ABOVE OPTIMAL 130 - 159 mg/dl BORDERLINE HIGH 160 - 189 mg/dl HIGH >190 mg/dl VERY HIGH Performed By: #### T STEFF, BMP #### [facility] [address] [place] [address] Dr. Ladan Diehl Triglyceride [Mass/Vol] 131 mg/dL Normal <=150 [facility] Comment on above: Performed By: #### T STEFF, BMP #### [facility] [address] [place] [address] Dr. Ladan Diehl VLDL CALC 26.2 mg/dL Normal [facility] Comment on above: Performed By: #### T STEFF, BMP #### [facility] [address] [place] [address] Dr. Ladan Diehl LIVER PROFILEon 12-19-2022 Albumin [Mass/Vol] 2.7 g/dL Critically low 3.4-5.0 Th [facility] Comment on above: Performed By: #### T STEFF, BMP #### [facility] [address] [place] [address] Dr. Ladan Diehl Albumin/Globulin [Mass ratio] 0.4 {ratio} Normal [facility] Comment on above: Performed By: #### T STEFF, BMP #### [facility] [address] [place] [address] Dr. Ladan Diehl ALP [Catalytic activity/Vol] 154 U/L Critically high 46-116 [facility] Comment on above: Performed By: #### T STEFF, BMP #### [facility] [address] [place] [address] Dr. Ladan Diehl ALT [Catalytic activity/Vol] 25 U/L Normal 16-63 [facility] Comment on above: Performed By: #### T STEFF, BMP #### [facility] [address] [place] [address] Dr. Ladan Diehl AST [Catalytic activity/Vol] 38 U/L Critically high 15-37 [facility] Comment on above: Performed By: #### T STEFF, BMP #### [facility] [address] [place] [address] Dr. Ladan Diehl BILI, CONJUGATED 0.2 mg/dL Normal 0.0-0.2 [facility] Comment on above: Performed By: #### T SH, BMP #### [facility] [address] [place] [address] Dr. Ladan Diehl Bilirubin [Mass/Vol] 0.8 mg/dL Normal 0.2-1.0 [facility] Comment on above: Performed By: #### T SH, BMP #### [facility] [address] [place] [address] Dr. Ladan Diehl Globulin (S) [Mass/Vol] 6.2 g/dL Normal [facility] Comment on above: Performed By: #### T SH, BMP #### [facility] [address] [place] [address] Dr. Ladan Diehl Protein [Mass/Vol] 8.9 g/dL Critically high 6.4-8.2 [facility] Comment on above: Performed By: #### T SH, BMP #### [facility] [address] [place] [address] Dr. Ladan Diehl MICROALBUMIN, RAND URon - mALB 25.4 mg/dL Normal <=30.0 [facility] Comment on above: Performed By: #### T SH, BMP #### [facility] [address] [place] [address] Dr. Ladan Diehl PROF CHEM 8 (BAS METB)on Anion gap [Moles/Vol] 10.7 mmol/L Normal [facility] Comment on above: Performed By: #### T SH, BMP #### [facility] [address] [place] [address] Dr. Ladan Diehl Calcium [Mass/Vol] 9.0 mg/dL Normal 8.5-10.1 [facility] Comment on above: Performed By: #### T SH, BMP #### [facility] [address] [place] [address] Dr. Ladan Diehl Chloride [Moles/Vol] 103 mmol/L Normal 98-107 [facility] Comment on above: Performed By: #### T SH, BMP #### [facility] [address] [address] [address] Ladan Diehl CO2 [Moles/Vol] 27.5 mmol/L Normal 21.0-32.0 [facility] Comment on above: Performed By: #### T SH, BMP #### [facility] [address] [address] [address] Ladan Diehl Creatinine [Mass/Vol] 1.29 mg/dL Normal 0.70-1.30 [facility] Comment on above: Performed By: #### T SH, BMP #### [facility] [address] [address] [address] Ladan Diehl EGFR-AF QATARI >60 Normal >=60 [facility] Comment on above: Performed By: #### T SH, BMP #### [facility] [address] [place] [address] Dr. Ladan Diehl EGFR-NON AF QATARI 56 mL/min/1.73m2 Critically low >=60 [facility] Comment on above: Performed By: #### T SH, BMP #### [facility] [address] [address] [address] Ladan Diehl Glucose [Mass/Vol] 108 mg/dL Critically high 74-106 [facility] Comment on above: Performed By: #### T SH, BMP #### [facility] [address] [place] [address] Dr. Ladan Diehl Potassium [Moles/Vol] 4.2 mmol/L Normal 3.5-5.1 [facility] Comment on above: Performed By: #### T SH, BMP #### [facility] [address] [address] [address] Ladan Diehl Sodium [Moles/Vol] 137 mmol/L Normal 136-145 [facility] Comment on above: Performed By: #### T SH, BMP #### [facility] [address] [address] [address] Ladan Diehl Urea nitrogen [Mass/Vol] 12.0 mg/dL Normal 7.0-18.0 [facility] Comment on above: Performed By: #### T STEFF, BMP #### [facility] [address] [place] [address] Dr. Ladan Diehl Urea nitrogen/Creatinine [Mass ratio] 9.3 mg/mg Normal [facility] Comment on above: Performed By: #### T SH, BMP #### [facility] [address] [place] [address] Dr. Ldaan Diehl TSHon 12-19-2022 TSH 8.668 uIU/mL Critically high 0.358-3.74 0 [facility] Comment on above: Performed By: #### T STEFF, BMP #### [facility] [address] [place] [address] Dr. Ladan Diehl GLYCOHEMOGLOBIN A1Con 2021 ADA RECOMMENDATION SEE BELOW Normal [facility] Comment on above: Result Comment: ADA RECOMMENDED LIMIT 4.0 - 6.0 ADA THERAPEUTIC TARGET < 7.0 ACTION SUGGESTED > 7.0 Performed By: #### A 1C #### [facility] [address] [place] [address] Dr. Ladan Diehl Glucose [Mass/Vol] 140 mg/dL Normal [facility] Comment on above: Performed By: #### A 1C #### [facility] [address] [place] [address] Dr. Ladan Diehl HbA1c (Bld) [Mass fraction] 6.5 % Critically high 4.5-6.2 [facility] Comment on above: Performed By: #### A 1C #### [facility] [address] [place] [address] CSPINE WO CONon [...] CAROL YIP Date: 2022-05-17 13:25 Normal [facility] CT HEAD WO CONon 05-17-2022 CT [...] by: CAROL YIP Date: 2022-05-17 13:07 Normal [address] [facility] XR CHEST 1 Von 05-17-2022 XR [...] by: ABBIE AMBROCIO Date: 2022-05-17 12:53 Normal [facility] Progress Noteson 05-03-2022 [employer]amer Authentication Interface Message Text EMERGENCY TRIAGE, TREAT AND TRANSPORT (ET3) DOCUMENTATION OF TELEHEALTH VISIT Date / Time: 05/01/2022599 Name: Evelin Patterson : 1955 SSN: [id number] EMS Agency: [facility] [x] Verbal consent obtained [] Implied [...] ET3 Encounter Completed by: Peter Molina DO Normal [facility] [employer] [facility] Activated partial thrombopla stin time (aPTT) in platelet poor plasma by coagulation aOrdered By: Ramesh Byrd on 04-12-2022 aPTT Coag (PPP) [Time] 24.8 s 25.1-36.5 [facility] Automated erythrocytes count in urine sediment (number/area)Ordered By: Ramesh Byrd on 04-12-2022 RBC Auto (Urine sed) [#/Area] 20-49 [HPF] 0-4 [facility] Automated leukocytes count i n urine sediment (number/area)Ordered By: Ramesh Byrd on 04-12-2022 WBC Auto (Urine sed) [#/Area] 1-2 [HPF] 0-4 [facility] Basophils Auto (Bld) [#/Vol] Ordered By: Ramesh Byrd on 04-12-2022 Basophils (Bld) [#/Vol] 0.0 10*3/uL 0.0-0.2 [facility] Basophils/100 WBC Auto (Bld) Ordered By: Ramesh Byrd on 04-12-2022 Basophils/100 WBC (Bld) 0.6 % . [facility] Bilirubin Test strip Ql (U)O rdered By: Ramesh Byrd on 04-12-2022 Bilirubin Ql (U) Negative Negative [facility] Blood hemoglobin measurement (mass/volume)Ordered By: Ramesh Byrd on 04-12-2022 Hemoglobin (Bld) [Mass/Vol] 12.2 g/dL 13.0-17.0 [facility] Blood leukocytes automated c ount (number/volume)Ordered By: Ramesh Byrd on 04-12-2022 WBC (Bld) [#/Vol] 6.4 10*3/uL 4.5-11.0 [facility] Body fluid albumin measureme nt (mass/volume)Ordered By: Ramesh Byrd on 04-12-2022 Albumin (Body fld) [Mass/Vol] 2.3 g/dL 3.2-5.5 [facility] Color Auto (U)Ordered By: Andi Byrd on 04-12-2022 Color (U) Yellow Yellow [facility] Creatinine and Glomerular fi ltration rate.predicted panel (S/P/Bld)Ordered By: Ramesh Byrd on 04-12-2022 Creatinine [Mass/Vol] 1.14 mg/dL 0.64-1.27 [facility] Eosinophils Auto (Bld) [#/Vo l]Ordered By: Ramesh Byrd on 04-12-2022 Eosinophils (Bld) [#/Vol] 0.2 10*3/uL 0.0-0.45 [facility] Eosinophils/100 WBC Auto (Bl d)Ordered By: Ramesh Byrd on 04-12-2022 Eosinophils/100 WBC (Bld) 2.7 % . [facility] Erythrocyte distribution wid th Auto (RBC) [Ratio]Ordered By: Ramesh Byrd on 04-12-2022 Erythrocyte distribution width (RBC) [Ratio] 16.7 % 12.0-14.8 [facility] Estimated glomerular filtrat ion rate (GFR) non- AmericanOrdered By: Ramesh Byrd on 04-12-2022 GFR/1.73 sq M.predicted among non-blacks MDRD (S/P/Bld) [Vol rate/Area] > 60 mL/Min [facility] Globulin Calc (S) [Mass/Vol] Ordered By: Ramesh Byrd on 04-12-2022 Globulin (S) [Mass/Vol] 4.7 g/dL [facility] Glucose Glucometer (BldC) [M ass/Vol]Ordered By: Ramesh Byrd on 04-12-2022 Glucose [Mass/Vol] 168 mg/dL [facility] Comment on above: Random Glucose Refer ence Range is dependent on time and content of last meal. Glucose of more than 200 mg/dL in a nonstressed, ambulatory subject supports the diagnosis of Diabetes Mellitus. Hematocrit Auto (Bld) [Volum e fraction]Ordered By: Ramesh Byrd on 04-12-2022 Hematocrit (Bld) [Volume fraction] 36.7 % 38.8-50.0 [facility] Ketones Auto test strip (U) [Mass/Vol]Ordered By: Ramesh Byrd on 04-12-2022 Ketones (U) [Mass/Vol] Trace Negative [facility] - Chemistry and C hemistry - challengeOrdered By: Ramesh Byrd on 04-12-2022 Magnesium [Mass/Vol] 1.3 mg/dL 1.6-2.6 [facility] Natriuretic peptide B (Bld) [Mass/Vol] 196.0 pg/mL 5-100 [facility] Laboratory - CoagulationOrde red By: Ramesh Byrd on 04-12-2022 PT Coag (PPP) [Time] 12.5 s 9.0-12.9 [facility] - Hematology and Cell countsOrdered By: Ramesh Byrd on 04-12-2022 Nucleated RBC/100 WBC (Bld) [Ratio] 0.1 % 0-0.5 [facility] - UrinalysisOrder ed By: Ramesh Byrd on 04-12-2022 Hyaline casts LM Ql (Urine sed) 0-8 [LPF] 0-8 [facility] Lymphocytes Auto (Bld) [#/Vo l]Ordered By: Ramesh Byrd on 04-12-2022 Lymphocytes (Bld) [#/Vol] 1.0 10*3/uL 1.00-4.8 [facility] Lymphocytes/100 WBC Auto (Bl d)Ordered By: Ramesh Byrd on 04-12-2022 Lymphocytes/100 WBC (Bld) 16.1 % . [facility] MCH Auto (RBC) [Entitic mass ]Ordered By: Ramesh Byrd on 04-12-2022 MCH (RBC) [Entitic mass] 31.0 pg 27.5-35.2 [facility] MCHC Auto (RBC) [Mass/Vol]Or dered By: Ramesh Byrd on 04-12-2022 MCHC (RBC) [Mass/Vol] 33.1 g/dL 32.5-35.6 [facility] MCV Auto (RBC) [Entitic vol] Ordered By: Ramesh Byrd on 04-12-2022 MCV (RBC) [Entitic vol] 93.5 fL 83.5-101 [facility] Monocytes Auto (Bld) [#/Vol] Ordered By: Ramesh Byrd on 04-12-2022 Monocytes (Bld) [#/Vol] 0.8 10*3/uL 0.0-0.8 [facility] Monocytes/100 WBC Auto (Bld) Ordered By: Ramesh Byrd on 04-12-2022 Monocytes/100 WBC (Bld) 12.0 % . [facility] Neutrophils Auto (Bld) [#/Vo l]Ordered By: Ramesh Byrd on 04-12-2022 Neutrophils (Bld) [#/Vol] 4.4 10*3/uL 1.8-7.7 [facility] Neutrophils/100 WBC Auto (Bl d)Ordered By: Ramesh Byrd on 04-12-2022 Neutrophils/100 WBC (Bld) 68.6 % . [facility] Nitrite Test strip Ql (U)Ord ered By: Ramesh Byrd on 04-12-2022 Nitrite Ql (U) Negative Negative [facility] No Panel InformationOrdered By: Ramesh Byrd on 04-12-2022 Estimated GFR () > 60 mL/Min [facility] Comment on above: GFR estimated refere nce range: According to KDOQI guidelines, <60 ml/min/1.73m2 is sufficient to diagnose a patient with chronic kidney disease. Pharmacy Creatinine Clearance (Chem 97.67 [facility] Platelet mean volume Auto (B ld) [Entitic vol]Ordered By: Ramesh Byrd on 04-12-2022 Platelet mean volume (Bld) [Entitic vol] 8.0 fL 6.6-10.1 [facility] Platelet poor plasma interna tional normalized ratio (INR) by coagulation assay (relatOrdered By: Ramesh Byrd on 04-12-2022 INR Coag (PPP) [Relative time] 1.1 {INR} [facility] Comment on above: INR Therapeutic Rang [...] 04-12-2022 Platelets (Bld) [#/Vol] 191 10*3/uL 150-450 [facility] Protein Auto test strip (U) [Mass/Vol]Ordered By: Ramesh Byrd on 04-12-2022 Protein (U) [Mass/Vol] 100 mg/dL Negative [facility] Protein [Mass/volume] in Ser um or PlasmaOrdered By: Ramesh Byrd on 04-12-2022 Protein [Mass/Vol] 7.0 g/dL 6.1-7.9 [facility] RBC Auto (Bld) [#/Vol]Ordere d By: Ramesh Byrd on 04-12-2022 RBC (Bld) [#/Vol] 3.93 10*6/uL 3.90-5.60 [facility] Serum or plasma alanine vivas otransferase measurement without P-5'-P (enzymatic activiOrdered By: Ramesh Byrd on 04-12-2022 ALT No additional P-5'-P [Catalytic activity/Vol] 34 U/L 10-60 [facility] Serum or plasma albumin/glob ulin mass ratioOrdered By: Ramesh Byrd on 04-12-2022 Albumin/Globulin [Mass ratio] 0.5 {ratio} [facility] Serum or plasma alkaline dilan sphatase measurement (enzymatic activity/volume)Ordered By: Ramesh Byrd on 04-12-2022 ALP [Catalytic activity/Vol] 97 U/L 32-92 [facility] Serum or plasma anion gap de terminationOrdered By: Ramesh Byrd on 04-12-2022 Anion gap [Moles/Vol] 17.1 mmol/L 6.0-15.0 [facility] Serum or plasma aspartate am inotransferase measurement (enzymatic activity/volume)Ordered By: Ramesh Byrd on 04-12-2022 AST [Catalytic activity/Vol] 136 U/L 10-42 [facility] Serum or plasma calcium osbaldo urement (mass/volume)Ordered By: Ramesh Byrd on 04-12-2022 Calcium [Mass/Vol] 8.6 mg/dL 8.2-10.2 [facility] Serum or plasma chloride judith surement (moles/volume)Ordered By: Ramesh Byrd on 04-12-2022 Chloride [Moles/Vol] 97 mmol/L 95-114 [facility] Serum or plasma glucose osbaldo urement (mass/volume)Ordered By: Ramesh Byrd on 04-12-2022 Glucose [Mass/Vol] 164 mg/dL 70-100 [facility] Comment on above: ADA recommended refe rence range Random Glucose Reference Range is dependent on time and content of last meal. Glucose of more than 200 mg/dL in a nonstressed, ambulatory subject supports the diagnosis of Diabetes Mellitus. Serum or plasma potassium me asurement (moles/volume)Ordered By: Ramesh Byrd on 04-12-2022 Potassium [Moles/Vol] 3.5 mmol/L 3.5-5.1 [facility] Serum or plasma sodium measu rement (moles/volume)Ordered By: Ramesh Byrd on 04-12-2022 Sodium [Moles/Vol] 136 mmol/L 136-146 [facility] Serum or plasma total biliru bin measurement (mass/volume)Ordered By: Ramesh Byrd on 04-12-2022 Bilirubin [Mass/Vol] 1.3 mg/dL 0.3-1.2 [facility] Comment on above: Samples from patient s who have taken Naproxen have shown spurious elevation in Total Bilirubin levels. A metabolite of Naproxen, O-desmethylnaproxen, has been shown to interfere with the Ronny-Chirag method for measuring Total Bilirubin. Serum or plasma total carbon dioxide measurement (moles/volume)Ordered By: Ramesh Byrd on 04-12-2022 CO2 [Moles/Vol] 25.4 mmol/L 22.0-30.0 [facility] Serum or plasma urea nitroge n measurement (mass/volume)Ordered By: Ramesh Byrd on 04-12-2022 Urea nitrogen [Mass/Vol] 13 mg/dL 9-23 [facility] Specific gravity Auto test s trip (U) [Rel density]Ordered By: Ramesh Byrd on 04-12-2022 Specific gravity (U) [Rel density] 1.020 1.001-1.03 0 [facility] Squamous epithelial cells de tection in urine sediment by light microscopyOrdered By: Ramesh Byrd on 04-12-2022 Epithelial cells.squamous LM Ql (Urine sed) 0-1 [HPF] 0-2 [facility] TSH DL <= 0.005 mIU/L QnOrde red By: Ramesh Byrd on 04-12-2022 TSH Qn 13.14 m[IU]/L 0.45-5.33 [facility] Troponin I.cardiac [Mass/vol ume] in Serum or Plasma by High sensitivity methodOrdered By: Ramesh Byrd on 04-12-2022 Troponin I.cardiac High sensitivity method [Mass/Vol] 18 pg/mL 0-20 [facility] Urine bacteria detection by automated methodOrdered By: Ramesh Byrd on 04-12-2022 Bacteria Auto Ql (U) None seen None Seen [facility] Urine clarity by refractomet ry automatedOrdered By: Ramesh Byrd on 04-12-2022 Clarity Refractometry automated (U) Clear Clear [facility] Urine glucose measurement by automated test strip (mass/volume)Ordered By: Ramesh Byrd on 04-12-2022 Glucose Auto test strip (U) [Mass/Vol] Normal mg/dL Normal [facility] Urine hemoglobin detection b y automated test stripOrdered By: Ramesh Byrd on 04-12-2022 Hemoglobin Auto test strip Ql (U) 2+ Negative [facility] Urine leukocyte esterase det ection by automated test stripOrdered By: Ramesh Byrd on 04-12-2022 Leukocyte esterase Auto test strip Ql (U) Negative Negative [facility] Urobilinogen Auto test strip (U) [Mass/Vol]Ordered By: Ramesh Byrd on 04-12-2022 Urobilinogen (U) [Mass/Vol] Normal mg/dL Normal [facility] pH Auto test strip (U)Ordere d By: Ramesh Byrd on 04-12-2022 pH (U) 6.5 [pH] 5.0-9.0 [facility] Albumin [Mass/volume] in Ser um or PlasmaOrdered By: Lupe Hernandez on 04-09-2022 Albumin [Mass/Vol] 1.9 g/dL 3.2-5.5 [facility] Basophils Auto (Bld) [#/Vol] Ordered By: Lupe Hernandez on 04-09-2022 Basophils (Bld) [#/Vol] 0.1 10*3/uL 0.0-0.2 [facility] Basophils/100 WBC Auto (Bld) Ordered By: Lupe Hernandez on 04-09-2022 Basophils/100 WBC (Bld) 1.3 % . [facility] Blood hemoglobin measurement (mass/volume)Ordered By: Lupe Hernandez on 04-09-2022 Hemoglobin (Bld) [Mass/Vol] 11.2 g/dL 13.0-17.0 [facility] Blood leukocytes automated c ount (number/volume)Ordered By: Lupe Hernandez on 04-09-2022 WBC (Bld) [#/Vol] 5.4 10*3/uL 4.5-11.0 [facility] Creatinine and Glomerular fi ltration rate.predicted panel (S/P/Bld)Ordered By: Lupe Hernandez on 04-09-2022 Creatinine [Mass/Vol] 0.88 mg/dL 0.64-1.27 [facility] Eosinophils Auto (Bld) [#/Vo l]Ordered By: Lupe Hernandez on 04-09-2022 Eosinophils (Bld) [#/Vol] 0.3 10*3/uL 0.0-0.45 [facility] Eosinophils/100 WBC Auto (Bl d)Ordered By: Lupe Hernandez on 04-09-2022 Eosinophils/100 WBC (Bld) 5.6 % . [facility] Erythrocyte distribution wid th Auto (RBC) [Ratio]Ordered By: Lupe Hernandez on 04-09-2022 Erythrocyte distribution width (RBC) [Ratio] 16.5 % 12.0-14.8 [facility] Estimated glomerular filtrat ion rate (GFR) non- AmericanOrdered By: Lupe Hernandez on 04-09-2022 GFR/1.73 sq M.predicted among non-blacks MDRD (S/P/Bld) [Vol rate/Area] > 60 mL/Min [facility] Globulin Calc (S) [Mass/Vol] Ordered By: Lupe Hernandez on 04-09-2022 Globulin (S) [Mass/Vol] 4.2 g/dL [facility] Glucose Glucometer (BldC) [M ass/Vol]Ordered By: Lupe Hernandez on 04-09-2022 Glucose [Mass/Vol] 178 mg/dL [facility] Comment on above: Random Glucose Refer ence Range is dependent on time and content of last meal. Glucose of more than 200 mg/dL in a nonstressed, ambulatory subject supports the diagnosis of Diabetes Mellitus. Hematocrit Auto (Bld) [Volum e fraction]Ordered By: Lupe Hernandez on 04-09-2022 Hematocrit (Bld) [Volume fraction] 33.6 % 38.8-50.0 [facility] Laboratory - Hematology and Cell countsOrdered By: Lupe Hernandez on 04-09-2022 Nucleated RBC/100 WBC (Bld) [Ratio] 0.2 % 0-0.5 [facility] Lymphocytes Auto (Bld) [#/Vo l]Ordered By: Lupe Hernandez on 04-09-2022 Lymphocytes (Bld) [#/Vol] 1.0 10*3/uL 1.00-4.8 [facility] Lymphocytes/100 WBC Auto (Bl d)Ordered By: Lupe Hernandez on 04-09-2022 Lymphocytes/100 WBC (Bld) 18.3 % . [facility] MCH Auto (RBC) [Entitic mass ]Ordered By: Lupe Hernandez on 04-09-2022 MCH (RBC) [Entitic mass] 31.1 pg 27.5-35.2 [facility] MCHC Auto (RBC) [Mass/Vol]Or dered By: Lupe Hernandez on 04-09-2022 MCHC (RBC) [Mass/Vol] 33.5 g/dL 32.5-35.6 [facility] MCV Auto (RBC) [Entitic vol] Ordered By: Lupe Hernandez on 04-09-2022 MCV (RBC) [Entitic vol] 93.0 fL 83.5-101 [facility] Monocytes Auto (Bld) [#/Vol] Ordered By: Lupe Hernandez on 04-09-2022 Monocytes (Bld) [#/Vol] 0.6 10*3/uL 0.0-0.8 [facility] Monocytes/100 WBC Auto (Bld) Ordered By: Lupe Hernandez on 04-09-2022 Monocytes/100 WBC (Bld) 11.0 % . [facility] Neutrophils Auto (Bld) [#/Vo l]Ordered By: Lupe Hernandez on 04-09-2022 Neutrophils (Bld) [#/Vol] 3.4 10*3/uL 1.8-7.7 [facility] Neutrophils/100 WBC Auto (Bl d)Ordered By: Lupe Hernandez on 04-09-2022 Neutrophils/100 WBC (Bld) 63.8 % . [facility] No Panel InformationOrdered By: Lupe Hernnadez on 04-09-2022 Bedside Glucose Comment Glu2: cleaned meter [facility] Estimated GFR () > 60 mL/Min [facility] Comment on above: GFR estimated refere nce range: According to KDOQI guidelines, <60 ml/min/1.73m2 is sufficient to diagnose a patient with chronic kidney disease. Pharmacy Creatinine Clearance (Chem 130.27 [facility] Platelet mean volume Auto (B ld) [Entitic vol]Ordered By: Lupe Hernandez on 04-09-2022 Platelet mean volume (Bld) [Entitic vol] 7.6 fL 6.6-10.1 [facility] Platelets Auto (Bld) [#/Vol] Ordered By: Lupe Hernandez on 04-09-2022 Platelets (Bld) [#/Vol] 214 10*3/uL 150-450 [facility] Protein [Mass/volume] in Ser um or PlasmaOrdered By: Lupe Hernandez on 04-09-2022 Protein [Mass/Vol] 6.1 g/dL 6.1-7.9 [facility] RBC Auto (Bld) [#/Vol]Ordere d By: Lupe Hernandez on 04-09-2022 RBC (Bld) [#/Vol] 3.61 10*6/uL 3.90-5.60 [facility] Serum or plasma alanine vivas otransferase measurement without P-5'-P (enzymatic activiOrdered By: Lupe Hrenandez on 04-09-2022 ALT No additional P-5'-P [Catalytic activity/Vol] 21 U/L 10-60 [facility] Serum or plasma albumin/glob ulin mass ratioOrdered By: Lupe Hernandez on 04-09-2022 Albumin/Globulin [Mass ratio] 0.5 {ratio} [facility] Serum or plasma alkaline dilan sphatase measurement (enzymatic activity/volume)Ordered By: Lupe Hernandez on 04-09-2022 ALP [Catalytic activity/Vol] 89 U/L 32-92 [facility] Serum or plasma anion gap de terminationOrdered By: Lupe Hernandez on 04-09-2022 Anion gap [Moles/Vol] 8.4 mmol/L 6.0-15.0 [facility] Serum or plasma aspartate am inotransferase measurement (enzymatic activity/volume)Ordered By: Lupe Hernandez on 04-09-2022 AST [Catalytic activity/Vol] 27 U/L 10-42 [facility] Serum or plasma calcium osbaldo urement (mass/volume)Ordered By: Lupe Hernandez on 04-09-2022 Calcium [Mass/Vol] 8.2 mg/dL 8.2-10.2 [facility] Serum or plasma chloride judith surement (moles/volume)Ordered By: Lupe Hernandez on 04-09-2022 Chloride [Moles/Vol] 98 mmol/L 95-114 [facility] Serum or plasma glucose osbaldo urement (mass/volume)Ordered By: Lupe Hernandez on 04-09-2022 Glucose [Mass/Vol] 150 mg/dL 70-100 [facility] Comment on above: ADA recommended refe rence range Random Glucose Reference Range is dependent on time and content of last meal. Glucose of more than 200 mg/dL in a nonstressed, ambulatory subject supports the diagnosis of Diabetes Mellitus. Serum or plasma potassium me asurement (moles/volume)Ordered By: Lupe Hernandez on 04-09-2022 Potassium [Moles/Vol] 3.4 mmol/L 3.5-5.1 [facility] Serum or plasma sodium measu rement (moles/volume)Ordered By: Lupe Hernandez on 04-09-2022 Sodium [Moles/Vol] 134 mmol/L 136-146 [facility] Serum or plasma total biliru bin measurement (mass/volume)Ordered By: Lupe Hernandez on 04-09-2022 Bilirubin [Mass/Vol] 0.7 mg/dL 0.3-1.2 [facility] Serum or plasma total carbon dioxide measurement (moles/volume)Ordered By: Lupe Hernandez on 04-09-2022 CO2 [Moles/Vol] 31.0 mmol/L 22.0-30.0 [facility] Serum or plasma urea nitroge n measurement (mass/volume)Ordered By: Lupe Hernandez on 04-09-2022 Urea nitrogen [Mass/Vol] 9 mg/dL 05-03 [facility] Bacterial blood cultureOrder ed By: Luke Moran on 04-07-2022 Bacteria identified Cx Nom (Bld) NO GROWTH 5 DAYS [facility] Laboratory - Chemistry and C hemistry - challengeOrdered By: Luke Moran on 04-04-2022 CO2 [Moles/Vol] 29.4 mmol/L 23.0-27.0 [facility] HCO3 (Bld) [Moles/Vol] 28.1 mmol/L 23.0-29.0 [facility] No Panel InformationOrdered By: Luke Moran on 04-04-2022 Arterial Blood Base Excess 3.4 mmol/L -3.0-3.0 [facility] Arterial Blood Oxygen Content 6.4 mmol/L 6.6-9.7 [facility] Arterial Blood Oxygen Saturation 92.1 % 95.0-100.0 [facility] Arterial Blood Partial Pressure CO2 43.2 mm[Hg] 35.0-45.0 [facility] Arterial Blood Partial Pressure O2 61.4 mm[Hg] 80.0-100.0 [facility] Arterial Blood pH 7.43 7.35-7.45 [facility] Blood Gas Critical Value See comment [facility] Comment on above: Critical Value [email or web address] d on: 04/04/2022 at 09:33 Blood Gas Liter Flow 2 L/min [facility] Blood Gas Sample Site Left radial [facility] FiO2 28 % [facility] Oxygen Delivery Device Nasal cannula [facility] Automated erythrocytes count in urine sediment (number/area)Ordered By: Jair Gabriel on 04-03-2022 RBC Auto (Urine sed) [#/Area] 3-4 [HPF] 0-4 [facility] Automated leukocytes count i n urine sediment (number/area)Ordered By: Jair Gabriel on 04-03-2022 WBC Auto (Urine sed) [#/Area] None seen [HPF] 0-4 [facility] Bilirubin Test strip Ql (U)O rdered By: Jair Gabriel on 04-03-2022 Bilirubin Ql (U) Negative Negative [facility] Color Auto (U)Ordered By: Tam Gabriel on 04-03-2022 Color (U) Yellow Yellow [facility] Hepatitis B virus surface Ag [Presence] in Serum or Plasma by ImmunoassayOrdered By: Luke Moran on 04-03-2022 HBV surface Ag IA Ql Negative Negative [facility] Comment on above: Performed at: [facility] [place] [id number] Manufacturer: Genaro Becerril PhD, Phone: [phone] IgA [Mass/volume] in Serum o r PlasmaOrdered By: Luke Moran on 04-03-2022 IgA [Mass/Vol] 697 mg/dL 61-437 [facility] IgG [Mass/volume] in Serum o r PlasmaOrdered By: Luke Moran on 04-03-2022 IgG [Mass/Vol] 1107 mg/dL 603-1613 [facility] IgM [Mass/volume] in Serum o r PlasmaOrdered By: Luke Moran on 04-03-2022 IgM [Mass/Vol] 91 mg/dL 20-172 [facility] Comment on above: Performed at: [facility] [address] [id number] Manufacturer: Genaro Becerril PhD, Phone: [phone] Immunofixation for UrineOrde red By: Luke Moran on 04-03-2022 Interpretation Immunofixation (U) [Interp] See comment . [facility] Comment on above: No monoclonality det ected. Performed at: [facility] [employer] [facility] [address] [id number] Manufacturer: Genaro Becerril PhD, Phone: [phone] Immunoglobulin light chains. kappa.free [Mass/volume] in SerumOrdered By: Luke Moran on 04-03-2022 Immunoglobulin light chains.kappa.free (S) [Mass/Vol] 93.9 mg/L 3.3-19.4 [facility] Immunoglobulin light chains. kappa.free/Immunoglobulin light chains.lambda.free [MassOrdered By: Luke Moran on 04-03-2022 Immunoglobulin light chains.kappa.free/Immu noglobulin light chains.lambda.free (S) [Mass ratio] 1.52 0.26-1.65 [facility] Comment on above: Performed at: [place] [id number] Manufacturer: Genaro Becerril PhD, Phone: [phone] Immunoglobulin light chains. lambda.free [Mass/volume] in Serum or PlasmaOrdered By: Luke Moran on 04-03-2022 Immunoglobulin light chains.lambda.free [Mass/Vol] 61.6 mg/L 5.7-26.3 [facility] Ketones Auto test strip (U) [Mass/Vol]Ordered By: Jair Gabriel on 04-03-2022 Ketones (U) [Mass/Vol] Negative Negative [facility] Laboratory - UrinalysisOrder ed By: Jair Gabriel on 04-03-2022 Hyaline casts LM Ql (Urine sed) 0-8 [LPF] 0-8 [facility] Nitrite Test strip Ql (U)Ord ered By: Jair Gabriel on 04-03-2022 Nitrite Ql (U) Negative Negative [facility] No Panel InformationOrdered By: Luke Moran on 04-03-2022 Hepatitis C Interpretation See comment . [facility] Comment on above: Negative Not infected with HCV, unless recent infection is suspected or other evidence exists to indicate HCV infection. Hepatitis C RNA Quantitative N/A [facility] Serum Immunofixation See comment . [facility] Comment on above: Immunofixation shows IgG monoclonal protein with lambda light chain specificity. Protein Auto test strip (U) [Mass/Vol]Ordered By: Jair Gabriel on 04-03-2022 Protein (U) [Mass/Vol] Negative Negative [facility] Random cortisol measurementO rdered By: Luke Moran on 04-03-2022 Cortisol [Mass/Vol] 5.8 ug/dL [facility] Comment on above: Reference range: AM 6 - 24 ug/dl PM <10 ug/dl Serum hepatitis B virus surf calin antibody detectionOrdered By: Luke Moran on 04-03-2022 HBV surface Ab Ql (S) Reactive . [facility] Comment on above: Non Reactive: [...] IA [Rel units/Vol] 0.1 s/co ratio 0.0-0.9 [facility] Comment on above: --- 04/04/22 0736 -- - Hep C Ab previously reported as: <0.1 s/co ratio Specific gravity Auto test s trip (U) [Rel density]Ordered By: Jair Gabriel on 04-03-2022 Specific gravity (U) [Rel density] 1.035 1.001-1.03 0 [facility] Squamous epithelial cells de tection in urine sediment by light microscopyOrdered By: Jair Gabriel on 04-03-2022 Epithelial cells.squamous LM Ql (Urine sed) None seen [HPF] 0-2 [facility] TSH DL <= 0.005 mIU/L QnOrde red By: Luke Moran on 04-03-2022 TSH Qn 22.19 m[IU]/L 0.45-5.33 [facility] Urine bacteria detection by automated methodOrdered By: Jair Gabriel on 04-03-2022 Bacteria Auto Ql (U) None seen None Seen [facility] Urine clarity by refractomet ry automatedOrdered By: Jair Gabriel on 04-03-2022 Clarity Refractometry automated (U) Clear Clear [facility] Urine glucose measurement by automated test strip (mass/volume)Ordered By: Jair Gabriel on 04-03-2022 Glucose Auto test strip (U) [Mass/Vol] 100 mg/dL Normal [facility] Urine hemoglobin detection b y automated test stripOrdered By: Jair Gabriel on 04-03-2022 Hemoglobin Auto test strip Ql (U) 3+ Negative [facility] Urine leukocyte esterase det ection by automated test stripOrdered By: Jair Gabriel on 04-03-2022 Leukocyte esterase Auto test strip Ql (U) Negative Negative [facility] Urobilinogen Auto test strip (U) [Mass/Vol]Ordered By: Jair Gabriel on 04-03-2022 Urobilinogen (U) [Mass/Vol] Normal mg/dL Normal [facility] pH Auto test strip (U)Ordere d By: Jair Gabriel on 04-03-2022 pH (U) 5.0 [pH] 5.0-9.0 [facility] Activated partial thrombopla stin time (aPTT) in platelet poor plasma by coagulation aOrdered By: Jair Gabriel on 04-02-2022 aPTT Coag (PPP) [Time] 24.8 s 25.1-36.5 [facility] COVID-19 Positive/NegativeOr dered By: Jair Gabriel on 04-02-2022 SARS-CoV-2 (COVID-19) N gene MANJIT+probe Ql (Resp) Negative Negative [facility] Comment on above: Testing for SARS-CoV -2 by RT-PCR This test was developed and its performance characteristics determined by [employer] ([employer]) and validated at the [facility]. This test has not been FDA [...] (COVID-19) Ag IA.rapid Ql (Resp) Negative Negative [facility] Comment on above: This is a duplicate Cristal SARS Antigen (GONZALO) result to be used for statistical tracking purpose only. Laboratory - Chemistry and C hemistry - challengeOrdered By: Jair Gabriel on 04-02-2022 Natriuretic peptide B (Bld) [Mass/Vol] 55.0 pg/mL 5-100 [facility] Laboratory - CoagulationOrde red By: Jair Gabriel on 04-02-2022 PT Coag (PPP) [Time] 11.9 s 9.0-12.9 [facility] No Panel InformationOrdered By: Luke Moran on 04-02-2022 D-Dimer Quantitative (PE/DVT) 2825 ng/mL 0-243 [facility] Comment on above: The reference range [...] Jair Gabriel on 04-02-2022 SARS Antigen (LFIA) [facility] Platelet poor plasma interna tional normalized ratio (INR) by coagulation assay (relatOrdered By: Jair Gabriel on 04-02-2022 INR Coag (PPP) [Relative time] 1.1 {INR} [facility] Comment on above: INR Therapeutic Rang [...] High sensitivity method [Mass/Vol] 26 pg/mL 0-20 [facility] Albumin [Mass/volume] in Ser um or PlasmaOrdered By: Sarah Osuna on 03-16-2022 Albumin [Mass/Vol] 1.9 g/dL 3.2-5.5 [facility] Creatinine and Glomerular fi ltration rate.predicted panel (S/P/Bld)Ordered By: Sarah Osuna on 03-16-2022 Creatinine [Mass/Vol] 1.27 mg/dL 0.64-1.27 [facility] Estimated glomerular filtrat ion rate (GFR) non- AmericanOrdered By: Sarah Osuna on 03-16-2022 GFR/1.73 sq M.predicted among non-blacks MDRD (S/P/Bld) [Vol rate/Area] 57 mL/Min [facility] Glucose Glucometer (BldC) [M ass/Vol]Ordered By: Xin Phan on 03-16-2022 Glucose [Mass/Vol] 377 mg/dL [facility] Comment on above: Random Glucose Refer ence Range is dependent on time and content of last meal. Glucose of more than 200 mg/dL in a nonstressed, ambulatory subject supports the diagnosis of Diabetes Mellitus. No Panel InformationOrdered By: Sarah Osuna on 03-16-2022 Estimated GFR () > 60 mL/Min [facility] Comment on above: GFR estimated refere nce range: According to KDOQI guidelines, <60 ml/min/1.73m2 is sufficient to diagnose a patient with chronic kidney disease. Pharmacy Creatinine Clearance (Chem 90.76 [facility] [facility] Serum or plasma calcium osbaldo urement (mass/volume)Ordered By: Sarah Osuna on 03-16-2022 Calcium [Mass/Vol] 8.4 mg/dL 8.2-10.2 [facility] Serum or plasma chloride judith surement (moles/volume)Ordered By: Sarah Osuna on 03-16-2022 Chloride [Moles/Vol] 99 mmol/L 95-114 [facility] Serum or plasma glucose osbaldo urement (mass/volume)Ordered By: Sarah Osuna on 03-16-2022 Glucose [Mass/Vol] 265 mg/dL 70-100 [facility] Comment on above: Delta: 480 on ADA recommended reference range Random Glucose Reference Range is dependent on time and content of last meal. Glucose of more than 200 mg/dL in a nonstressed, ambulatory subject supports the diagnosis of Diabetes Mellitus. Serum or plasma potassium me asurement (moles/volume)Ordered By: Xin Phan on 03-16-2022 Potassium [Moles/Vol] 4.0 mmol/L 3.5-5.1 [facility] Serum or plasma sodium measu rement (moles/volume)Ordered By: Sarah Osuna on 03-16-2022 Sodium [Moles/Vol] 132 mmol/L 136-146 [facility] Serum or plasma total carbon dioxide measurement (moles/volume)Ordered By: Sarah Osuna on 03-16-2022 CO2 [Moles/Vol] 25.4 mmol/L 22.0-30.0 [facility] Serum or plasma urea nitroge n measurement (mass/volume)Ordered By: Sarah Osuna on 03-16-2022 Urea nitrogen [Mass/Vol] 24 mg/dL 9-23 [facility] Serum phospholipid phosphoru s measurement (mass/volume)Ordered By: Xin Phan on 03-16-2022 Phospholipid phosphorus (S) [Mass/Vol] 2.0 mg/dL 2.5-4.6 [facility] No Panel InformationOrdered By: Xin Phan on 03-15-2022 Bedside Glucose Comment See comment [facility] Comment on above: Glu2: WILL NOTIFY DR /RN Bedside Glucose #2 Comment Cleaned meter [facility] Automated erythrocytes count in urine sediment (number/area)Ordered By: Sarah Osuna on 03-14-2022 RBC Auto (Urine sed) [#/Area] 0-1 [HPF] 0-4 [facility] Automated leukocytes count i n urine sediment (number/area)Ordered By: Sarah Osuna on 03-14-2022 WBC Auto (Urine sed) [#/Area] 0-1 [HPF] 0-4 [facility] Basophils Auto (Bld) [#/Vol] Ordered By: Leah Huang on 03-14-2022 Basophils (Bld) [#/Vol] 0.0 10*3/uL 0.0-0.2 [facility] Basophils/100 WBC Auto (Bld) Ordered By: Leah Huang on 03-14-2022 Basophils/100 WBC (Bld) 0.2 % . [facility] Bilirubin Auto test strip Ql (U)Ordered By: Sarah Osuna on 03-14-2022 Bilirubin Ql (U) Negative Negative [facility] Blood hemoglobin measurement (mass/volume)Ordered By: Leah Huang on 03-14-2022 Hemoglobin (Bld) [Mass/Vol] 11.6 g/dL 13.0-17.0 [facility] Blood leukocytes automated c ount (number/volume)Ordered By: Leah Huang on 03-14-2022 WBC (Bld) [#/Vol] 6.0 10*3/uL 4.5-11.0 [facility] Creatinine [Mass/volume] in UrineOrdered By: Sarah Osuna on 03-14-2022 Creatinine (U) [Mass/Vol] 76.9 mg/dL [facility] Comment on above: No reference range e stablished Eosinophils Auto (Bld) [#/Vo l]Ordered By: Leah Huang on 03-14-2022 Eosinophils (Bld) [#/Vol] 0.1 10*3/uL 0.0-0.45 [facility] Eosinophils/100 WBC Auto (Bl d)Ordered By: Leah Huang on 03-14-2022 Eosinophils/100 WBC (Bld) 1.4 % . [facility] Erythrocyte distribution wid th Auto (RBC) [Ratio]Ordered By: Leah Huang on 03-14-2022 Erythrocyte distribution width (RBC) [Ratio] 15.8 % 12.0-14.8 [facility] Globulin Calc (S) [Mass/Vol] Ordered By: Leah Huang on 03-14-2022 Globulin (S) [Mass/Vol] 3.8 g/dL [facility] Glucose mean value [Mass/vol ume] in Blood Estimated from glycated hemoglobinOrdered By: Leah Huang on 03-14-2022 Average glucose Estimated from glycated hemoglobin (Bld) [Mass/Vol] 329 mg/dL [facility] Hematocrit Auto (Bld) [Volum e fraction]Ordered By: Leah Huang on 03-14-2022 Hematocrit (Bld) [Volume fraction] 35.1 % 38.8-50.0 [facility] Hemoglobin A1c percentageOrd ered By: Leah Huang on 03-14-2022 HbA1c (Bld) [Mass fraction] 13.1 % 4.3-5.6 [facility] Comment on above: Increased risk for d iabetes: 5.7 - 6.4 diabetes: >6.4 glycemic control for adults with diabetes: <7.0 Ketones Auto test strip (U) [Mass/Vol]Ordered By: Sarah Osuna on 03-14-2022 Ketones (U) [Mass/Vol] Negative Negative [facility] - Hematology and Cell countsOrdered By: Leah Huang on 03-14-2022 Nucleated RBC/100 WBC (Bld) [Ratio] 0.1 % 0-0.5 [facility] - UrinalysisOrder ed By: Sarah Osuna on 03-14-2022 Hyaline casts LM Ql (Urine sed) 0-8 [LPF] 0-8 [facility] Lymphocytes Auto (Bld) [#/Vo l]Ordered By: Leah Huang on 03-14-2022 Lymphocytes (Bld) [#/Vol] 1.4 10*3/uL 1.00-4.8 [facility] Lymphocytes/100 WBC Auto (Bl d)Ordered By: Leah Huang on 03-14-2022 Lymphocytes/100 WBC (Bld) 22.7 % . [facility] MCH Auto (RBC) [Entitic mass ]Ordered By: Leah Huang on 03-14-2022 MCH (RBC) [Entitic mass] 29.9 pg 27.5-35.2 [facility] MCHC Auto (RBC) [Mass/Vol]Or dered By: Leah Huang on 03-14-2022 MCHC (RBC) [Mass/Vol] 33.0 g/dL 32.5-35.6 [facility] MCV Auto (RBC) [Entitic vol] Ordered By: Leah Huang on 03-14-2022 MCV (RBC) [Entitic vol] 90.4 fL 83.5-101 [facility] Monocytes Auto (Bld) [#/Vol] Ordered By: Leah Huang on 03-14-2022 Monocytes (Bld) [#/Vol] 0.5 10*3/uL 0.0-0.8 [facility] Monocytes/100 WBC Auto (Bld) Ordered By: Leah Huang on 03-14-2022 Monocytes/100 WBC (Bld) 9.0 % . [facility] Neutrophils Auto (Bld) [#/Vo l]Ordered By: Leah Huang on 03-14-2022 Neutrophils (Bld) [#/Vol] 4.0 10*3/uL 1.8-7.7 [facility] Neutrophils/100 WBC Auto (Bl d)Ordered By: Leah Huang on 03-14-2022 Neutrophils/100 WBC (Bld) 66.7 % . [facility] Platelet mean volume Auto (B ld) [Entitic vol]Ordered By: Leah Huang on 03-14-2022 Platelet mean volume (Bld) [Entitic vol] 8.9 fL 6.6-10.1 [facility] Platelets Auto (Bld) [#/Vol] Ordered By: Leah Huang on 03-14-2022 Platelets (Bld) [#/Vol] 143 10*3/uL 150-450 [facility] Protein Auto test strip (U) [Mass/Vol]Ordered By: Sarah Osuna on 03-14-2022 Protein (U) [Mass/Vol] Negative Negative [facility] Protein [Mass/volume] in Ser um or PlasmaOrdered By: Leah Huang on 03-14-2022 Protein [Mass/Vol] 5.8 g/dL 6.1-7.9 [facility] Protein [Mass/volume] in Uri neOrdered By: Sarah Osuna on 03-14-2022 Protein (U) [Mass/Vol] 13 mg/dL 0-9 [facility] RBC Auto (Bld) [#/Vol]Ordere d By: Leah Huang on 03-14-2022 RBC (Bld) [#/Vol] 3.88 10*6/uL 3.90-5.60 [facility] Serum or plasma alanine vivas otransferase measurement without P-5'-P (enzymatic activiOrdered By: Leah Huang on 03-14-2022 ALT No additional P-5'-P [Catalytic activity/Vol] 35 U/L 10-60 [facility] Serum or plasma albumin/glob ulin mass ratioOrdered By: Leah Huang on 03-14-2022 Albumin/Globulin [Mass ratio] 0.5 {ratio} [facility] Serum or plasma alkaline dilan sphatase measurement (enzymatic activity/volume)Ordered By: Leah Huang on 03-14-2022 ALP [Catalytic activity/Vol] 120 U/L 32-92 [facility] Serum or plasma aspartate am inotransferase measurement (enzymatic activity/volume)Ordered By: Leah Huang on 03-14-2022 AST [Catalytic activity/Vol] 36 U/L 10-42 [facility] Serum or plasma total biliru bin measurement (mass/volume)Ordered By: Leah Huang on 03-14-2022 Bilirubin [Mass/Vol] 1.0 mg/dL 0.3-1.2 [facility] Squamous epithelial cells de tection in urine sediment by light microscopyOrdered By: Sarah Osuna on 03-14-2022 Epithelial cells.squamous LM Ql (Urine sed) None seen [HPF] 0-2 [facility] Urea nitrogen [Mass/volume] in UrineOrdered By: Leah Huang on 03-14-2022 Urea nitrogen (U) [Mass/Vol] 454 mg/dL Not Estab. [facility] Comment on above: Performed at: [address] [id number] Manufacturer: Genaro Bceerril PhD, Phone: [phone] Urine appearanceOrdered By: Sarah Osuna on 03-14-2022 Appearance (U) Clear Clear [facility] Urine bacteria detection by automated methodOrdered By: Sarah Osuna on 03-14-2022 Bacteria Auto Ql (U) None seen None Seen [facility] Urine colorOrdered By: Sarah Osuna on 03-14-2022 Color (U) Yellow Yellow [facility] Urine glucose measurement by automated test strip (mass/volume)Ordered By: Sarah Osuna on 03-14-2022 Glucose Auto test strip (U) [Mass/Vol] >=1000 mg/dL Normal [facility] Urine hemoglobin detection b y automated test stripOrdered By: Sarah Osuna on 03-14-2022 Hemoglobin Auto test strip Ql (U) 2+ Negative [facility] Urine leukocyte esterase det ection by automated test stripOrdered By: Sarah Osuna on 03-14-2022 Leukocyte esterase Auto test strip Ql (U) Negative Negative [facility] Urine nitrite detection by a utomated test stripOrdered By: Sarah Osuna on 03-14-2022 Nitrite Auto test strip Ql (U) Negative Negative [facility] Urine protein/creatinine rat ioOrdered By: Sarah Osuna on 03-14-2022 Protein/Creatinine (U) [Ratio] 169 mg/g{Cre} 0-200 [facility] Urine sodium measurement (mo les/volume)Ordered By: Leah Huang on 03-14-2022 Sodium (U) [Moles/Vol] 20 mmol/L [facility] Comment on above: No reference range e stablished Urobilinogen Auto test strip (U) [Mass/Vol]Ordered By: Sarah Osuna on 03-14-2022 Urobilinogen (U) [Mass/Vol] Normal mg/dL Normal [facility] Yeast detection in urine sed iment by light microscopyOrdered By: Sarah Osuna on 03-14-2022 Yeast LM Ql (Urine sed) Budding yeast [HPF] None Seen [facility] Comment on above: 1+ BUDDING YEAST pH Auto test strip (U)Ordere d By: Sarah Osuna on 03-14-2022 pH (U) 1.020 [pH] 1.001-1.03 0 [facility] pH (U) 5.5 [pH] 5.0-9.0 [facility] POINT OF CARE GLUCOSEon 01-10 Glucose [Mass/Vol] 161 mg/dL Critically high [address] [place] [address] Comment on above: Performed By: #### T STEFF, BMP #### [facility] [address] [place] [address] Dr. Ladan Diehl POINT OF CARE GLUCOSEon 01-09 Glucose [Mass/Vol] 358 mg/dL Critically high [address] [place] [address] Comment on above: Performed By: #### A 1C #### [facility] [address] [address] [address] Ladan Diehl Glucose [Mass/Vol] 279 mg/dL Critically high [address] [place] [address] Comment on above: Performed By: #### A 1C #### [facility] [address] [place] [address] Dr. Ladan Diehl Glucose [Mass/Vol] 247 mg/dL Critically high [address] [place] [address] Comment on above: Performed By: #### T STEFF, BMP #### [facility] [address] [place] [address] Dr. Ladan Diehl Glucose [Mass/Vol] 357 mg/dL Critically high [address] [place] [address] Comment on above: Performed By: #### A 1C #### [facility] [address] [place] [address] Dr. Ladan Diehl PROF CHEM 8 (BAS METB)on Anion gap [Moles/Vol] 11.1 mmol/L Normal [facility] Comment on above: Performed By: #### T STEFF, BMP #### [facility] [address] [address] [address] Ladan Diehl Calcium [Mass/Vol] 8.8 mg/dL Normal 8.5-10.1 [facility] Comment on above: Performed By: #### T SH, BMP #### [facility] [address] [address] [address] Ladan Diehl Chloride [Moles/Vol] 99 mmol/L Normal 98-107 [facility] Comment on above: Performed By: #### T SH, BMP #### [facility] [address] [place] [address] Dr. Ladan Diehl CO2 [Moles/Vol] 27.2 mmol/L Normal 21.0-32.0 [facility] Comment on above: Performed By: #### T SH, BMP #### [facility] [address] [place] [address] Dr. Ladan Diehl Creatinine [Mass/Vol] 1.59 mg/dL Critically high 0.70-1.30 [facility] Comment on above: Performed By: #### T SH, BMP #### [facility] [address] [place] [address] Dr. Ladan iDehl EGFR-AF QATARI 53 mL/min/1.73m2 Critically low >=60 [facility] Comment on above: Performed By: #### T SH, BMP #### [facility] [address] [place] [address] Dr. Ladan Diehl EGFR-NON AF QATARI 44 mL/min/1.73m2 Critically low >=60 [facility] Comment on above: Performed By: #### T SH, BMP #### [facility] [address] [place] [address] Dr. Ladan Diehl Glucose [Mass/Vol] 284 mg/dL Critically high 74-106 [facility] Comment on above: Performed By: #### T SH, BMP #### [facility] [address] [place] [address] Dr. Ladan Diehl Potassium [Moles/Vol] 4.2 mmol/L Normal 3.5-5.1 [facility] Comment on above: Performed By: #### T SH, BMP #### [facility] [address] [address] [address] Ladan Diehl Sodium [Moles/Vol] 133 mmol/L Critically low 136-145 [facility] Comment on above: Performed By: #### T SH, BMP #### [facility] [address] [address] [address] Ladan Diehl Urea nitrogen [Mass/Vol] 22.0 mg/dL Critically high 7.0-18.0 [facility] Comment on above: Performed By: #### T SH, BMP #### [facility] [address] [address] [address] Ladan Diehl Urea nitrogen/Creatinine [Mass ratio] 13.8 mg/mg Normal [facility] Comment on above: Performed By: #### T SH, BMP #### [facility] [address] [place] [address] Dr. Ladan Diehl TROPONIN, HIGH SENSITIVITYon 01-24-2022 HSTROP 13.7 pg/mL Normal 4.0-76.1 [facility] Comment on above: Result Comment: CUT- OFF POINTS HAVE BEEN ESTABLISHED BASED ON THE FOURTH UNIVERSAL DEFINITIONS OF MYOCARDIAL INFARCTION. THE UPPER REFERENCE LIMIT (URL) OF TROPONIN, DEFINED THE 99TH PERCENTILE OF cTnI DISTRIBUTION IN A REFERENCE POPULATION, HAS BEEN CONFIRMED THE DECISION THRESHOLD FOR [place] DIAGNOSIS. Performed By: #### H STROPN #### [facility] [address] [place] [address] Dr. Ladan Diehl TSHon 01-24-2022 TSH 0.381 uIU/mL Normal 0.358-3.74 0 [facility] Comment on above: Performed By: #### T SH, BMP #### [facility] [address] [place] [address] Dr. Ladan Diehl US LIT DOP LEG [...] CAROL YIP Date: 2022-01-24 09:51 Normal [facility] BNPon 01-23-2022 Natriuretic peptide B (Bld) [Mass/Vol] 262.0 pg/mL Normal <=900.[address] [facility] Comment on above: Performed By: #### A 1C #### [facility] [address] [place] [address] Dr. Ladan Diehl CBC AUTO DIFFon 01-23-2022 BASO # 0.1 103/ul Normal 0.0-0.1 [facility] Comment on above: Performed By: #### T SH, BMP #### [facility] [address] [place] [address] Dr. Ladan Diehl Basophils/100 WBC (Bld) 0.8 % Normal 0.2-2.0 [facility] Comment on above: Performed By: #### T SH, BMP #### [facility] [address] [place] [address] Dr. Ladan Diehl EO # 0.3 103/ul Normal 0.0-0.[address] [facility] Comment on above: Performed By: #### T SH, BMP #### [facility] [address] [place] [address] Dr. Ladan Diehl Eosinophils/100 WBC (Bld) 4.4 % Normal 0.9-7.[address] [facility] Comment on above: Performed By: #### T SH, BMP #### [facility] [address] [place] [address] Dr. Ladan Diehl Erythrocyte distribution width (RBC) [Ratio] 14.0 % Normal 11.0-15.[address] [facility] Comment on above: Performed By: #### T SH, BMP #### [facility] [address] [place] [address] Dr. Ladan Diehl Hematocrit (Bld) [Volume fraction] 38.3 % Critically low 42.0-54.0 [facility] Comment on above: Performed By: #### T SH, BMP #### [facility] [address] [place] [address] Dr. Ladan Diehl Hemoglobin (Bld) [Mass/Vol] 12.0 g/dL Critically low 14.0-18.0 [facility] Comment on above: Performed By: #### T SH, BMP #### [facility] [address] [place] [address] Dr. Ladan Diehl IG # 0.03 10e3/ul Normal 0.00-0.03 [facility] Comment on above: Performed By: #### T SH, BMP #### [facility] [address] [place] [address] Dr. Ladan Diehl IG % 0.5 % Normal 0.0-0.5 [facility] Comment on above: Performed By: #### T SH, BMP #### [facility] [address] [place] [address] Dr. Ladan Diehl LYMPH # 1.2 103/ul Normal 1.2-3.8 [facility] Comment on above: Performed By: #### T SH, BMP #### [facility] [address] [place] [address] Dr. Ladan Diehl Lymphocytes/100 WBC (Bld) 20.2 % Critically low 20.5-60.0 [facility] Comment on above: Performed By: #### T SH, BMP #### [facility] [address] [place] [address] Dr. Ladan Diehl MANUAL DIFF REQ NO Normal [facility] Comment on above: Performed By: #### T SH, BMP #### [facility] [address] [place] [address] Dr. Ladan Diehl MCH (RBC) [Entitic mass] 29.6 pg Normal 25.9-34.0 [facility] Comment on above: Performed By: #### T SH, BMP #### [facility] [address] [place] [address] Dr. Ladan Diehl MCHC (RBC) [Mass/Vol] 31.3 g/dL Normal 29.9-35.2 [facility] Comment on above: Performed By: #### T SH, BMP #### [facility] [address] [place] [address] Dr. Ladan Diehl MCV (RBC) [Entitic vol] 94.6 fL Critically high 80.0-94.0 [facility] Comment on above: Performed By: #### T SH, BMP #### [facility] [address] [place] [address] Dr. Ladan Diehl MONO # 0.7 103/ul Normal 0.3-0.8 [facility] Comment on above: Performed By: #### T SH, BMP #### [facility] [address] [place] [address] Dr. Ladan Diehl Monocytes/100 WBC (Bld) 10.7 % Normal 1.7-12.0 [facility] Comment on above: Performed By: #### T SH, BMP #### [facility] [address] [place] [address] Dr. Ladan Diehl NEUT # 3.9 103/ul Normal 1.4-6.5 [facility] Comment on above: Performed By: #### T SH, BMP #### [facility] [address] [place] [address] Dr. Ladan Diehl Neutrophils/100 WBC (Bld) 63.4 % Normal 43.0-75.[address] [facility] Comment on above: Performed By: #### T SH, BMP #### [facility] [address] [place] [address] Dr. Ladan Diehl Platelet mean volume (Bld) [Entitic vol] 10.0 fL Normal 9.5-13.[address] [facility] Comment on above: Performed By: #### T SH, BMP #### [facility] [address] [place] [address] Dr. Ladan Diehl PLT 171 103/ul Normal 150-[address] [facility] Comment on above: Performed By: #### T SH, BMP #### [facility] [address] [place] [address] Dr. Ladan Diehl RBC 4.05 106/ul Critically low 4.70-6.[address] [facility] Comment on above: Performed By: #### T JOSE ARTIS #### [facility] [address] [place], [place] [address] Dr. Ladan iDehl WBC 6.1 103/ul Normal 4.0-11.[address] [facility] Comment on above: Performed By: #### T JOSE ARTIS #### [facility] [address] [place], [place] [address] Dr. Ladan Diehl CTA CHEST WO W [...] XIN BUI Date: 2022-01-23 19:35 Normal [address] [facility] Covid-19 PCR (CVDTB)on 01-09 SARS-CoV-2 (COVID-19) RNA MANJIT+probe Ql (Unsp spec) Not detected Normal NOT DETECTED [facility] Comment on above: Result Comment: When [...] for this test is supported by the [employer]r/Fireman of Health and Human Service's declaration that [...] used). Performed By: #### A 1C #### [facility] [address] [place] [address] Dr. Ladan Diehl LACTATE/LACTIC ACIDon 2021 Lactate [Moles/Vol] 1.6 mmol/L Normal 0.4-1.9 [facility] Comment on above: Performed By: #### L ACT #### [facility] [address] [place] [address] Dr. Ladan Diehl PROF 14(COMP METB)on 022 Albumin [Mass/Vol] 2.7 g/dL Critically low 3.4-5.0 [facility] Comment on above: Performed By: #### A 1C #### [facility] [address] [place] [address] Dr. Ladan Diehl Albumin/Globulin [Mass ratio] 0.5 {ratio} Normal [facility] Comment on above: Performed By: #### A 1C #### [facility] [address] [place] [address] Dr. Ladan Diehl ALP [Catalytic activity/Vol] 120 U/L Critically high 46-116 [facility] Comment on above: Performed By: #### A 1C #### [facility] [address] [place] [address] Dr. Ladan Diehl ALT [Catalytic activity/Vol] 23 U/L Normal 16-63 [facility] Comment on above: Performed By: #### A 1C #### [facility] [address] [address] [address] Ladan Diehl Anion gap [Moles/Vol] 10.3 mmol/L Normal [facility] Comment on above: Performed By: #### A 1C #### [facility] [address] [address] [address] Ladan Diehl AST [Catalytic activity/Vol] 29 U/L Normal 15-37 [facility] Comment on above: Performed By: #### A 1C #### [facility] [address] [address] [address] Ladan Diehl Bilirubin [Mass/Vol] 1.0 mg/dL Normal 0.2-1.0 [facility] Comment on above: Performed By: #### A 1C #### [facility] [address] [address] [address] Ladan Diehl Calcium [Mass/Vol] 8.8 mg/dL Normal 8.5-10.1 [facility] Comment on above: Performed By: #### A 1C #### [facility] [address] [address] [address] Ladan Diehl Chloride [Moles/Vol] 101 mmol/L Normal 98-107 [facility] Comment on above: Performed By: #### A 1C #### [facility] [address] [place] [address] Dr. Ladan Diehl CO2 [Moles/Vol] 30.8 mmol/L Normal 21.0-32.0 [facility] Comment on above: Performed By: #### A 1C #### [facility] [address] [place] [address] Dr. Ladan Diehl Creatinine [Mass/Vol] 1.40 mg/dL Critically high 0.70-1.30 [facility] Comment on above: Performed By: #### A 1C #### [facility] [address] [place] [address] Dr. Ladan Diehl EGFR-AF QATARI >60 Normal >=60 [facility] Comment on above: Performed By: #### A 1C #### [facility] [address] [address] [address] Ladan Diehl EGFR-NON AF QATARI 51 mL/min/1.73m2 Critically low >=60 [facility] Comment on above: Performed By: #### A 1C #### [facility] [address] [place] [address] Dr. Ladan Diehl Globulin (S) [Mass/Vol] 5.3 g/dL Normal [facility] Comment on above: Performed By: #### A 1C #### [facility] [address] [address] [address] Ladan Diehl Glucose [Mass/Vol] 125 mg/dL Critically high 74-106 [facility] Comment on above: Performed By: #### A 1C #### [facility] [address] [place] [address] Dr. Ladan Diehl Potassium [Moles/Vol] 4.1 mmol/L Normal 3.5-5.1 [facility] Comment on above: Performed By: #### A 1C #### [facility] [address] [place] [address] Dr. Ladan Diehl Protein [Mass/Vol] 8.0 g/dL Normal 6.4-8.2 [facility] Comment on above: Performed By: #### A 1C #### [facility] [address] [place] [address] Dr. Ladan Diehl Sodium [Moles/Vol] 138 mmol/L Normal 136-145 [facility] Comment on above: Performed By: #### A 1C #### [facility] [address] [place] [address] Dr. Ladan Diehl Urea nitrogen [Mass/Vol] 20.0 mg/dL Critically high 7.0-18.0 [facility] Comment on above: Performed By: #### A 1C #### [facility] [address] [place] [address] Dr. Ladan Diehl Urea nitrogen/Creatinine [Mass ratio] 14.3 mg/mg Normal [facility] Comment on above: Performed By: #### A 1C #### [facility] [address] [place] [address] Dr. Ladan Diehl PROTIMEon 01-23-2022 INR Coag (PPP) [Relative time] 1.02 {INR} Normal [facility] Comment on above: Performed By: #### P T, PTT #### [facility] [address] [place] [address] Dr. Ladan Diehl INR GUIDELINES SEE BELOW Normal [facility] Comment on above: Result Comment: KALI RED INR: 2.0 - 3.0 CONDITIONS NOT LISTED BELOW 2.5 - 3.5 FOR PROSTHETIC HEART VALVE REPLACEMENT 2.5 - 3.5 RECURRENT THROMBOSIS Performed By: #### P T, PTT #### [facility] [address] [place] [address] Dr. Ladan Diehl PT Coag (PPP) [Time] 11.0 s Normal 9.0-11.6 [facility] Comment on above: Performed By: #### P T, PTT #### [facility] [address] [place] [address] Dr. Ladan Diehl PTTon 01-23-2022 aPTT Coag (Bld) [Time] 27.6 s Normal 22.3-36.2 [facility] Comment on above: Performed By: #### P T, PTT #### [facility] [address] [place] [address] Dr. Ladan Diehl TROPONIN, HIGH SENSITIVITYon 01-23-2022 HSTROP 10.4 pg/mL Normal 4.0-76.1 [facility] Comment on above: Result Comment: CUT- OFF POINTS HAVE BEEN ESTABLISHED BASED ON THE FOURTH UNIVERSAL DEFINITIONS OF MYOCARDIAL INFARCTION. THE UPPER REFERENCE LIMIT (URL) OF TROPONIN, DEFINED THE 99TH PERCENTILE OF cTnI DISTRIBUTION IN A REFERENCE POPULATION, HAS BEEN CONFIRMED THE DECISION THRESHOLD FOR [place] DIAGNOSIS. Performed By: #### A 1C #### [facility] [address] [place] [address] ABD/PELV W CONon [...] TANNER PEDRAZA Date: 2022-01-18 23:39 Normal [facility] XR CHEST 1 Von 01-19-2022 XR [...] ROSELIA RIVERA Date: 2022-01-18 22:16 Normal [facility] XR KNEE LT 4V or >on [...] by: JENNIFER CASTILLO Date: 2022-01-18 23:06 Normal [facility] CBC AUTO DIFFon 01-18-2022 BASO # 0.1 103/ul Normal 0.0-0.1 [facility] Comment on above: Performed By: #### C BC #### [facility] [address] [address] [address] Ladan Diehl Basophils/100 WBC (Bld) 0.8 % Normal 0.2-2.0 [facility] Comment on above: Performed By: #### C BC #### [facility] [address] [place] [address] Dr. Ladan Diehl EO # 0.4 103/ul Normal 0.0-0.7 [facility] Comment on above: Performed By: #### C BC #### [facility] [address] [place] [address] Dr. Ladan Diehl Eosinophils/100 WBC (Bld) 4.3 % Normal 0.9-7.0 [facility] Comment on above: Performed By: #### C BC #### [facility] [address] [place] [address] Dr. Ladan Diehl Erythrocyte distribution width (RBC) [Ratio] 14.4 % Normal 11.0-15.0 [facility] Comment on above: Performed By: #### C BC #### [facility] [address] [place] [address] Dr. Ladan Diehl Hematocrit (Bld) [Volume fraction] 37.2 % Critically low 42.0-54.0 [facility] Comment on above: Performed By: #### C BC #### [facility] [address] [place] [address] Dr. Ladan Diehl Hemoglobin (Bld) [Mass/Vol] 11.9 g/dL Critically low 14.0-18.0 [facility] Comment on above: Performed By: #### C BC #### [facility] [address] [place] [address] Dr. Ladan Diehl IG # 0.04 10e3/ul Critically high 0.00-0.03 [facility] Comment on above: Performed By: #### C BC #### [facility] [address] [place] [address] Dr. Ladan Diehl IG % 0.5 % Normal 0.0-0.[address] [facility] Comment on above: Performed By: #### C BC #### [facility] [address] [address] [address] Ladan Diehl LYMPH # 2.2 103/ul Normal 1.2-3.[address] [facility] Comment on above: Performed By: #### C BC #### [facility] [address] [address] [address] Ladan Diehl Lymphocytes/100 WBC (Bld) 26.2 % Normal 20.5-60.0 [facility] Comment on above: Performed By: #### C BC #### [facility] [address] [address] [address] Ladan Diehl MANUAL DIFF REQ NO Normal [facility] Comment on above: Performed By: #### C BC #### [facility] [address] [place] [address] Dr. Ladan Diehl MCH (RBC) [Entitic mass] 30.4 pg Normal 25.9-34.0 [facility] Comment on above: Performed By: #### C BC #### [facility] [address] [place] [address] Dr. Ladan Diehl MCHC (RBC) [Mass/Vol] 32.0 g/dL Normal 29.9-35.[address] [facility] Comment on above: Performed By: #### C BC #### [facility] [address] [place] [address] Dr. Ladan Diehl MCV (RBC) [Entitic vol] 94.9 fL Critically high 80.0-94.[address] [facility] Comment on above: Performed By: #### C BC #### [facility] [address] [place] [address] Dr. Ladan Diehl MONO # 0.9 103/ul Critically high 0.3-0.[address] [facility] Comment on above: Performed By: #### C BC #### [facility] [address] [place] [address] Dr. Ladan Diehl Monocytes/100 WBC (Bld) 10.3 % Normal 1.7-12.[address] [facility] Comment on above: Performed By: #### C BC #### [facility] [address] [address] [address] Ladan Diehl NEUT # 5.0 103/ul Normal 1.4-6.5 [facility] Comment on above: Performed By: #### C BC #### [facility] [address] [address] [address] Ladan Diehl Neutrophils/100 WBC (Bld) 57.9 % Normal 43.0-75.0 [facility] Comment on above: Performed By: #### C BC #### [facility] [address] [place] [address] Dr. Ladan Diehl Platelet mean volume (Bld) [Entitic vol] 9.9 fL Normal 9.5-13.[address] [facility] Comment on above: Performed By: #### C BC #### [facility] [address] [place] [address] Dr. Ladan Diehl PLT 180 103/ul Normal 150-450 [facility] Comment on above: Performed By: #### C BC #### [facility] [address] [place] [address] Dr. Ladan Diehl RBC 3.92 106/ul Critically low 4.70-6.10 [facility] Comment on above: Performed By: #### C BC #### [facility] [address] [place] [address] Dr. Ladan Diehl WBC 8.6 103/ul Normal 4.0-11.0 [facility] Comment on above: Performed By: #### C BC #### [facility] [address] [address] [address] Ladan Diehl PROF 14(COMP METB)on 022 Albumin [Mass/Vol] 2.6 g/dL Critically low 3.4-5.0 [facility] Comment on above: Performed By: #### C MP #### [facility] [address] [place] [address] Dr. Ladan Diehl Albumin/Globulin [Mass ratio] 0.5 {ratio} Normal [facility] Comment on above: Performed By: #### C MP #### [facility] [address] [place] [address] Dr. Ladan Diehl ALP [Catalytic activity/Vol] 184 U/L Critically high 46-116 [facility] Comment on above: Performed By: #### C MP #### [facility] [address] [place] [address] Dr. Ladan Diehl ALT [Catalytic activity/Vol] 24 U/L Normal 16-63 [facility] Comment on above: Performed By: #### C MP #### [facility] [address] [place] [address] Dr. Ladan Diehl Anion gap [Moles/Vol] 10.1 mmol/L Normal Th [facility] Comment on above: Performed By: #### C MP #### [facility] [address] [place] [address] Dr. Ladan Diehl AST [Catalytic activity/Vol] 22 U/L Normal 15-37 [facility] Comment on above: Performed By: #### C MP #### [facility] [address] [place] [address] Dr. Ladan Diehl Bilirubin [Mass/Vol] 0.5 mg/dL Normal 0.2-1.0 [facility] Comment on above: Performed By: #### C MP #### [facility] [address] [place] [address] Dr. Ladan Diehl Calcium [Mass/Vol] 8.6 mg/dL Normal 8.5-10.1 [facility] Comment on above: Performed By: #### C MP #### [facility] [address] [place] [address] Dr. Ladan Diehl Chloride [Moles/Vol] 101 mmol/L Normal 98-107 [facility] Comment on above: Performed By: #### C MP #### [facility] [address] [place] [address] Dr. Ladan Diehl CO2 [Moles/Vol] 30.9 mmol/L Normal 21.0-32.0 [facility] Comment on above: Performed By: #### C MP #### [facility] [address] [place] [address] Dr. Ladan Diehl Creatinine [Mass/Vol] 1.72 mg/dL Critically high 0.70-1.30 [facility] Comment on above: Performed By: #### C MP #### [facility] [address] [address] [address] Ladan Diehl EGFR-AF QATARI 49 mL/min/1.73m2 Critically low >=60 [facility] Comment on above: Performed By: #### C MP #### [facility] [address] [address] [address] Ladan Diehl EGFR-NON AF QATARI 40 mL/min/1.73m2 Critically low >=60 [facility] Comment on above: Performed By: #### C MP #### [facility] [address] [address] [address] Ladan Diehl Globulin (S) [Mass/Vol] 5.2 g/dL Normal [facility] Comment on above: Performed By: #### C MP #### [facility] [address] [address] [address] Ladan Diehl Glucose [Mass/Vol] 253 mg/dL Critically high 74-106 [facility] Comment on above: Performed By: #### C MP #### [facility] [address] [address] [address] Ladan Diehl Potassium [Moles/Vol] 4.0 mmol/L Normal 3.5-5.1 [facility] Comment on above: Performed By: #### C MP #### [facility] [address] [address] [address] Ladan Diehl Protein [Mass/Vol] 7.8 g/dL Normal 6.4-8.[address] [facility] Comment on above: Performed By: #### C MP #### [facility] [address] [address] [address] Ladan Diehl Sodium [Moles/Vol] 138 mmol/L Normal 136-145 [facility] Comment on above: Performed By: #### C MP #### [facility] [address] [address] [address] Ladan Diehl Urea nitrogen [Mass/Vol] 30.0 mg/dL Critically high 7.0-18.0 [facility] Comment on above: Performed By: #### C MP #### [facility] [address] [place], [place] [address] Dr. Ladan Diehl Urea nitrogen/Creatinine [Mass ratio] 17.4 mg/mg Normal [facility] Comment on above: Performed By: #### C MP #### [facility] [address] [place], [place] [address] Dr. Ladan Diehl Vital Signs Date Time Vital Sign Value Performing Clinician Facility 03-10-2025 16:14-0400 Body height 177.8 cm Carol Burns DPM Work Phone: [facility] 03-10-2025 16:14-0400 Body mass index (BMI) [Ratio] 47.35 kg/m2 Carol Burns DPM Work Phone: [facility] 03-10-2025 16:14-0400 Body weight 149.69 kg Carol Burns DPM Work Phone: [facility] 02-25-2025 13:05-0400 Diastolic blood pressure 63 mm[Hg] Arline Rouse RESPIRATORY SCIENTIST-C Work Phone: [facility] 02-25-2025 13:05-0400 Heart rate 61 /min Arline Rouse RESPIRATORY SCIENTIST-C Work Phone: [facility] 02-25-2025 13:05-0400 Respiratory rate 16 /min Arline Rouse RESPIRATORY SCIENTIST-C Work Phone: [facility] 02-25-2025 13:05-0400 SaO2% (BldA) [Mass fraction] 95 % Arline Rouse RESPIRATORY SCIENTIST-C Work Phone: [facility] 02-25-2025 13:05-0400 Systolic blood pressure 114 mm[Hg] Arline Rouse RESPIRATORY SCIENTIST-C Work Phone: [facility] 02-25-2025 11:42-0400 Body height 177.8 cm Arline Rouse RESPIRATORY SCIENTIST-C Work Phone: [facility] 02-25-2025 11:42-0400 Body weight 140.61 kg Arline Rouse RESPIRATORY SCIENTIST-C Work Phone: [facility] 02-15-2025 13:00-0400 Body height 177.8 cm Carol Burns DPM Work Phone: [facility] 02-15-2025 13:00-0400 Body mass index (BMI) [Ratio] 47.35 kg/m2 Carol Burns DPM Work Phone: [facility] 02-15-2025 13:00-0400 Body weight 149.69 kg Carol Burns DPM Work Phone: [facility] 01-19-2025 11:01-0400 Body height 177.8 cm Carol Burns DPM Work Phone: [facility] 01-19-2025 11:01-0400 Body mass index (BMI) [Ratio] 47.35 kg/m2 Carol Burns DPM Work Phone: [facility] 01-19-2025 11:01-0400 Body weight 149.69 kg Carol Burns DPM Work Phone: [facility] 12-17-2024 13:43-0400 Body height 172.72 cm Arline Rouse RESPIRATORY SCIENTIST-C Work Phone: [facility] 12-17-2024 13:43-0400 Body weight 158.8 kg Arline Rouse RESPIRATORY SCIENTIST-C Work Phone: [facility] 12-17-2024 13:43-0400 Diastolic blood pressure 98 mm[Hg] Arline Rouse RESPIRATORY SCIENTIST-C Work Phone: [facility] 12-17-2024 13:43-0400 Heart rate 70 /min Arline Rouse RESPIRATORY SCIENTIST-C Work Phone: [facility] 12-17-2024 13:43-0400 Respiratory rate 20 /min Arlnie Rouse RESPIRATORY SCIENTIST-C Work Phone: [facility] 12-17-2024 13:43-0400 SaO2% (BldA) [Mass fraction] 97 % Arline Rouse RESPIRATORY SCIENTIST-C Work Phone: [facility] 12-17-2024 13:43-0400 Systolic blood pressure 143 mm[Hg] Arline Rouse RESPIRATORY SCIENTIST-C Work Phone: [facility] 11-16-2024 11:24-0400 Diastolic blood pressure 100 mm[Hg] Arline Rouse RESPIRATORY SCIENTIST-C Work Phone: [facility] 11-16-2024 11:24-0400 Heart rate 64 /min Arline Rouse RESPIRATORY SCIENTIST-C Work Phone: [facility] 11-16-2024 11:24-0400 Respiratory rate 18 /min Arline Rouse RESPIRATORY SCIENTIST-C Work Phone: [facility] 11-16-2024 11:24-0400 SaO2% (BldA) [Mass fraction] 95 % Arline Rouse RESPIRATORY SCIENTIST-C Work Phone: [facility] 11-16-2024 11:24-0400 Systolic blood pressure 158 mm[Hg] Arline Rouse RESPIRATORY SCIENTIST-C Work Phone: [facility] 11-16-2024 11:18-0400 Body height 177.8 cm Arline Rouse RESPIRATORY SCIENTIST-C Work Phone: [facility] 11-16-2024 11:18-0400 Body weight 149.68 kg Arline Rouse RESPIRATORY SCIENTIST-C Work Phone: [facility] 05-01-2022 06:00-0400 Diastolic blood pressure 58 mm[Hg] [facility] [facility] [employer] 05-01-2022 06:00-0400 Heart rate 89 /min [facility] [facility] 05-01-2022 06:00-0400 Respiratory rate 20 /min [facility] 05-01-2022 06:00-0400 SaO2% (BldA) [Mass fraction] 91 % [facility] Comment on above: 2 L NC at baseline 05-01-2022 06:00-0400 Systolic blood pressure 86 mm[Hg] [facility] 04-12-2022 15:01-0400 Body temperature 98.3 [degF] MD Ayden Freeman Work Phone: [facility] 04-12-2022 15:01-0400 Diastolic blood pressure 68 mm[Hg] MD Ayden Freeman Work Phone: [facility] 04-12-2022 15:01-0400 Heart rate 90 /min MD Ayden Freeman Work Phone: [facility] 04-12-2022 15:01-0400 Respiratory rate 20 /min MD Ayden Freeman Work Phone: [facility] 04-12-2022 15:01-0400 SaO2% (BldA) [Mass fraction] 92 % MD Ayden Freeman Work Phone: [facility] 04-12-2022 15:01-0400 Systolic blood pressure 130 mm[Hg] MD Ayden Freeman Work Phone: [facility] 04-12-2022 10:48-0400 Body height 177.8 cm MD Ayden Freeman Work Phone: [facility] 04-12-2022 10:48-0400 Body weight 154.22 kg MD Ayden Freeman Work Phone: [facility] 04-09-2022 12:00-0400 Diastolic blood pressure 81 mm[Hg] MD Ayden Freeman Work Phone: [facility] 04-09-2022 12:00-0400 Heart rate 99 /min MD Ayden Freeman Work Phone: [facility] 04-09-2022 12:00-0400 Inhaled oxygen flow rate 2 L/min MD Ayden Freeman Work Phone: [facility] 04-09-2022 12:00-0400 Respiratory rate 18 /min MD Ayden Freeman Work Phone: [facility] 04-09-2022 12:00-0400 SaO2% (BldA) [Mass fraction] 98 % MD Ayden Freeman Work Phone: [facility] 04-09-2022 12:00-0400 Systolic blood pressure 127 mm[Hg] MD Ayden Freeman Work Phone: [facility] 04-09-2022 05:22-0400 Body weight 162 kg MD Ayden Freeman Work Phone: [facility] 04-08-2022 20:00-0400 Inhaled oxygen concentration 30 % MD Ayden Freeman Work Phone: [facility] 04-08-2022 14:56-0400 Body height 177.8 cm MD Ayden Freeman Work Phone: [facility] 04-08-2022 08:11-0400 Body temperature 98 [degF] MD Ayden Freeman Work Phone: [facility] 03-16-2022 11:59-0400 Diastolic blood pressure 90 mm[Hg] MD Ayden Freeman Work Phone: [facility] 03-16-2022 11:59-0400 Heart rate 95 /min MD Ayden Freeman Work Phone: [facility] 03-16-2022 11:59-0400 Respiratory rate 18 /min MD Ayden Freeman Work Phone: [facility] 03-16-2022 11:59-0400 SaO2% (BldA) [Mass fraction] 95 % MD Ayden Freeman Work Phone: [facility] 03-16-2022 11:59-0400 Systolic blood pressure 147 mm[Hg] MD Ayden Freeman Work Phone: [facility] 03-16-2022 08:07-0400 Body temperature 97.8 [degF] MD Ayden Freeman Work Phone: [facility] 08-06-2022 06:00-0400 Body weight 163.5 kg MD Ayden Freeman Work Phone: [facility] 03-14-2022 17:24-0400 Body height 177.8 cm MD Ayden Freeman Work Phone: [facility] 03-14-2022 16:00-0400 Inhaled oxygen flow rate 1 L/min MD Ayden Freeman Work Phone: [facility] Encounters Encounter Date Encounter Type Care Provider Facility Start: 03-23-2025 End: 03-23-2025 Bamboo flowsheet Sylvia Lui DO Work Phone: [facility] Start: 03-23-2025 End: 03-23-2025 Bamboo flowsheet Sylvia Lui DO Work Phone: [facility] Start: 03-23-2025 End: 03-23-2025 Clinical Support Sylvia Lui DO Work Phone: [facility] Comment on above: Retinal Injection Start: 03-10-2025 End: 03-10-2025 Patient encounter procedure Carol Burns DPM Work Phone: [facility] Comment on above: Diabetic polyneuropa thy associated with type 2 diabetes mellitus (HCC) (Primary Dx); Type II diabetes mellitus with peripheral circulatory disorder (HCC); Encounter for long-term (current) use of insulin (HCC) Start: 03-10-2025 End: 03-10-2025 ambulatory CAROL BURNS Not Available Start: 03-10-2025 End: 03-10-2025 Bamboo flowsheet Carol Burns DPM Work Phone: [facility] Start: 03-10-2025 End: 03-10-2025 Bamboo flowsheet Carol Burns DPM Work Phone: [facility] Start: 03-08-2025 End: 03-08-2025 Bamboo flowsheet Sylvia Lui DO Work Phone: [facility] Start: 03-08-2025 End: 03-08-2025 Bamboo flowsheet Sylvia Lui DO Work Phone: [facility] Start: 03-08-2025 End: 03-08-2025 ambulatory SYLVIA LUI Not Available Start: 03-08-2025 End: 03-08-2025 Office outpatient new 45 minutes Sylvia Lui DO Work Phone: [facility] Comment on above: Age-related nuclear cataract of both eyes (Primary Dx); 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 (HCC); 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 associated with type 2 diabetes mellitus (HCC) Start: 02-25-2025 End: 02-25-2025 Admission to same day surgery center Margot Titus MD [facility] Work Phone: Start: 02-25-2025 End: 02-25-2025 ambulatory Arline Rouse RESPIRATORY SCIENTIST-C Work Phone: [facility] Work Phone: Start: 02-15-2025 End: 02-15-2025 Bamboo flowsheet Carol Burns DPM Work Phone: [facility] Start: 02-15-2025 End: 02-15-2025 Bamboo flowszenobia Burns DPM Work Phone: [facility] Start: 02-15-2025 End: 02-15-2025 Postop follow up visit related to original px Carol Burns DPM Work Phone: [facility] Comment on above: Diabetic polyneuropa thy associated with type 2 diabetes mellitus (HCC) (Primary Dx); Type II diabetes mellitus with peripheral circulatory disorder (HCC); Encounter for long-term (current) use of insulin (HCC) Start: 02-15-2025 End: 02-15-2025 ambulatory CAROL BURNS Not Available Start: 01-19-2025 End: 01-19-2025 Bamboo flowsheet Carol Burns DPM Work Phone: [facility] Start: 01-19-2025 End: 01-19-2025 Bamboo flowsheet Carol Burns DPM Work Phone: [facility] Start: 01-19-2025 End: 01-19-2025 Office outpatient new 30 minutes Carol Burns DPM Work Phone: [facility] Comment on above: Dermatophytosis of n ail (Primary Dx); Dystrophic nail; Diabetic polyneuropathy associated with type 2 diabetes mellitus ([facility]/HCC); Type II diabetes mellitus with peripheral circulatory disorder ([facility]/HCC); Encounter for long-term (current) use of insulin ([facility] Start: 01-19-2025 End: 01-19-2025 ambulatory CAROL BURNS Not Available Start: 12-27-2024 End: 12-27-2024 ambulatory Arline Rouse RESPIRATORY SCIENTIST-C Work Phone: [facility] Work Phone: Start: 12-27-2024 End: 12-27-2024 Departed Referred Lottie Washington PA-C -[facility] [place] Start: 12-17-2024 End: 12-17-2024 Departed Referred Lottie Washington PA-C -Pre-Surgical Testing Work Phone: Start: 12-17-2024 End: 12-17-2024 Patient encounter procedure Arline Rouse RESPIRATORY SCIENTIST-C Work Phone: [facility] Work Phone: Start: 12-17-2024 End: 12-17-2024 ambulatory Arline Rouse RESPIRATORY SCIENTIST-C Work Phone: [facility] Work Phone: Start: 11-18-2024 End: 11-18-[facility] Start: 11-16-2024 End: 11-16-2024 Patient encounter procedure Arline Rouse RESPIRATORY SCIENTIST-C Work Phone: [facility] [place] Work Phone: Start: 11-16-2024 End: 11-16-2024 ambulatory Arline Almazan Nasim RESPIRATORY SCIENTIST-C Work Phone: [facility] Work Phone: Start: 10-28-2024 End: 10-28-2024 ambulatory [facility] Start: 10-28-2024 End: 10-28-2024 Encounter for other preprocedural examination [facility] Start: 04-05-2024 ambulatory Facility:Óscar Underwood Start: 03-02-2024 ambulatory Facility:Tirso Gabriel Start: 12-19-2022 End: 12-20-[address] AYDEN [...] patient visit MD Ayden Freeman Work Phone: [facility]Emergency Room Start: 04-10-2022 End: 04-17-2022 ambulatory UNKNOWN PROVIDER Facility:[facility] Start: 04-02-2022 End: 04-09-2022 Evaluation and management of inpatient MD Ayden Freeman Work Phone: [facility] Start: 03-15-[address] AYDEN FREEMAN Facil ity:H1 Start: 03-14-2022 End: 03-14-2022 Patient encounter procedure JEFF CARLOS [facility] [place] Start: 03-14-2022 End: 03-16-2022 Evaluation and management of inpatient MD Ayden Freeman Work Phone: [facility] Start: 02-15-[address] AYDEN FREEMAN Facil ity:H1 Start: 02-01-2022 End: 02-01-2022 ambulatory HINA DIOP . Facility:[facility]1 Start: 01-24-2022 End: 01-24-[address] CAROL YIP Facility:[facility]1 Start: 01-18-2022 End: 01-19-[address] MASON CASTRO Facility:[facility]1 Procedures Date Procedure Procedure Detail Performing Clinician Start: 03-23-2025 Intravitreal njx pharmacologic agt spx Sylvia Lui DO Work Phone: Start: 03-08-2025 Computerized ophthal ben imaging retina Sylvia Lui DO Work Phone: Start: 02-25-2025 Computerized axial tomography of lumbar spine with contrast Arline Rouse RESPIRATORY SCIENTIST-C Work Phone: Start: 02-25-2025 Myelogram Arline dueñas RESPIRATORY SCIENTIST-C Work Phone: Start: 12-19-[address] AYDEN FRIEND Comment on above: Performed By: #### P [facility] #### [facility] [address] [place] [address] Dr. Ladan Diehl Start: 04-12-2022 Plain chest X-ray MD Mair Freeman Work Phone: Start: 04-02-2022 CT angiography [...] Treatment Date Care Activity Detail Author Start: 04-21-2025 End: 04-21-2025 Patient encounter procedure [facility] Start: 04-05-2025 End: 04-05-2025 Patient encounter procedure 04/05/2025 3:15 PM EDT [facility] [address] [place] [id number] Carol Burns, DPMaite [address] [place] [address] [facility] Start: 03-11-2025 End: 03-11-2025 Clinical Support 03/11/2025 10:45 AM EDT Clinical Support [facility] [address] [place] [id number] Sylvia Lui DO [address] [place] [address] [facility] Start: 03-10-2025 End: 03-10-2025 Patient encounter procedure [facility] Comment on above: Arrived Start: 03-01-2025 End: 03-01-2025 Patient encounter procedure 03/01/2025 1:30 PM EDT Office Visit [facility] [address] [place] [address] Sylvia Lui DO [address] [place] [address] [facility] Start: 02-25-2025 [facility] Start: 01-19-2025 End: 01-19-2025 Patient encounter procedure 01/19/2025 10:45 AM EDT Office Visit [facility] [address] [place] [id number] Carol Burns DPMaite [address] [place], [place] [id number] Arrived [facility] Comment on above: Arrived Start: 12-27-2024 OR CAT/MRI W/ IV SEDATION (Not Applicable) OR CAT/MRI W/ IV SEDATION (Not Applicable) [facility] Start: 09-18-2024 Glaucoma screening Diabetes: R etinopathy Screening [facility] Start: 05-11-2022 Influenza vaccination Influenza Vacc ine (#1) [facility] Start: 04-12-2022 Plain chest X-ray XR chest 2V* [facility] Start: 04-12-2022 End: 04-12-2022 Emergency department patient visit Departed Emergency [facility] Start: 04-09-2022 [facility] Work Phone: Start: 04-09-2022 [facility] Work Phone: Start: 04-02-2022 End: 04-09-2022 Evaluation and management of inpatient Abrasion of elbow [facility] Start: 04-02-2022 CT angiography of thorax CT angio chest PE protocol [facility] Start: 04-02-2022 Hospital admission [facility] Work Phone: Start: 04-02-2022 X-ray of left knee XR knee LT 2V [facility] Start: 04-02-2022 Plain chest X-ray XR chest 1V portab le [facility] Start: 04-02-2022 Plain X-ray of left hip XR hip LT min 2V(w/wo pelvis)* [facility] Start: 04-02-2022 Plain X-ray of left elbow XR elbow LT min 3V* [facility] Start: 03-16-2022 [facility] Work Phone: Start: 03-14-2022 Referral to general activities therapist [facility] Work Phone: Start: 03-14-2022 Hospital admission [facility] Work Phone: Start: 12-09-2021 Welcome to Medicare Visit (G0402) Welcome to Medicare Visit (G0402) [facility] Start: 11-28-2007 Measurement of occul t blood in single stool specimen [facility] Start: 11-28-2007 Screening for malign ant neoplasm of colon CRC Screening [facility] Start: 11-28-2007 Shingles (RZV) Vacci ne (1 of 2) Shingles (RZV) Vaccine (1 of 2) [facility] Start: 1992 Lipid panel Cholesterol [facility] Start: 1976 Urine screening for protein Diabetes: Urine Protein Screening [facility] Start: 11-28-1975 Hepatitis C screening Hepatitis C An tibody [facility] Start: 11-28-1975 Tetanus + diphtheria + acellular pertussis vaccine (product) [facility] Start: 1972 HIV screening HIV Test [facility] Start: 05-29-1958 COVID-19 Vaccine (#1) COVID-19 Vacci ne (#1) [facility] Start: 1957 Hemoglobin A1c measurement Diabetes: Hemoglobin A1C [facility] Start: 1957 Medicare Annual Wellness (AWV) Medicare Annual Wellness (AWV) [facility] Start: 1957 Screening for malign ant neoplasm of colon [facility] Patient Education [facility] Work Phone: Patient referral [facility] Work Phone: Immunizations Immunization Date Immunization Notes Care Provider Brenna silver 05-12-2024 influenza, high dose seasonal, preservative-free Carol Rusher DPM Work Phone: [facility] 05-06-2023 Influenza, Seasonal, Quadrivalent, Adjuvanted Carol Rusher DPM Work Phone: [facility] 04-07-2023 Pneumococcal Conjuga te PCV 20 Carol Rusher DPM Work Phone: [facility] 05-11-2021 Seasonal, quadrivale nt, recombinant, injectable influenza vaccine, preservative free Carol Rusher DPM Work Phone: [facility] 05-13-2019 Seasonal, quadrivale nt, recombinant, injectable influenza vaccine, preservative free Carol Rusher DPM Work Phone: [facility] 04-24-2012 influenza, seasonal, injectable, preservative free Carol Rusher DPM Work Phone: [facility] Healthcare Payers Date Payer Category Payer Self-pay [id number] 2024 Medicare (Managed Care) YOVANI STEELE [id number] 2023 Unknown [id number] 2021 Medicare [employer]ALTH[employer] - MEDICARE UHC HMO SNP [id number] 2021-Present [phone] [address] [place] [address] Medicare [id number] 2021 Private Health Insurance [id number] 2020 Medicaid [facility] [id number] 2017 Unknown [id number] 1959 Medicaid [id number] 1959 Medicare [id number] 1957 Unknown [id number] 2.16.840.1.732845.3.579.2. 732 1957 Unknown [id number] 2.16.840.1.216832.3.579.2. 732 1957 Unknown [id number] 2.16.840.1.686918.3.579.2. 732 1957 Unknown [id number] 2.16.840.1.499563.3.579.2. 732 1957 Unknown [id number] 2.16.840.1.740728.3.579.2. 593 1957 Unknown [id number] 2.16.840.1.632670.3.579.2. 593 1957 Unknown [id number] 2.16.840.1.713673.3.579.2. 593 1957 Unknown [id number] 2.16.840.1.720952.3.579.2. 593 1957 Unknown [id number] 2.16.840.1.985746.3.579.2. 593 1957 Unknown [id number] 2.16.840.1.334504.3.579.2. 593 1957 Unknown [id number] 2.16.840.1.104910.3.579.2. 593 1957 Unknown [id number] 2.16.840.1.961191.3.579.2. 593 1957 Unknown [id number] 2.16.840.1.463440.3.579.2. 593 1957 Unknown [id number] 2.16.840.1.475342.3.579.2. 1259 1957 Unknown [id number] 2.16.840.1.566744.3.579.2. 1259 1957 Unknown [id number] 2.16.840.1.625986.3.579.2. 1259 1957 Unknown [id number] 2.16.840.1.333170.3.579.2. 1259 1957 Unknown [id number] 2.16.840.1.604013.3.579.2. 1259 Medicare Medicare [id number] Medicare Medicare Psych-IP Part A [id number] Medicare [place] [facility] PFFS [id number] Medicare [place] [employer] [facility] [id number] Unknown [facility] [id number] Unknown [id number] 2.16.840.1.338379.3.579.2. 531 Unknown [id number] 2.16.840.1.992363.3.579.2. 531 Unknown [id number] 2.16.840.1.276959.3.579.2. 531 Unknown [id number] 2.16.840.1.507602.3.579.2. 531 Social History Date Type Detail Facility Tobacco smoking status No Smoking Status Entered [facility] Start: 10-01-2023 End: 03-10-2025 Sex Assigned At Male [facility] Start: 04-02-2022 End: 03-08-2025 Tobacco smoking status AZIS Never smoked tobacco (finding) [facility] Start: 1955 Sex Assigned At Male [facility] Tobacco smoking status [facility] Tobacco [facility] consumption [facility] Start: 1955 Sex Assigned At Not on file [facility] Start: 11-17-2024 End: 12-18-2024 Sex Male (finding) [facility] Start: 09-14-2023 End: 03-08-2025 Tobacco use and exposure Smokeless tobacco non-user [facility] Start: 10-01-2023 End: 03-23-2025 Alcoholic beverage intake Lifetime non-drinker (finding) [facility] Start: 10-01-2023 End: 03-10-2025 History of Social function [facility] Start: 09-14-2023 Alcohol Comment caffeine intak e : more than 4 cups per day [facility] NEGATED: Highlighted rowStart: NINF History of tobacco use Passive smoker [facility] Medical Equipment Procedure Code Equipment Code Equipment Origin al Text Equipment Identifier Dates Lancets-Blood Glucose Strips (Goj Lancet-Glucose Test Strp) 30 gauge Combo Pack [...] 03-16-2022 End: 04-09-2022 Pen Needle, Diab etic (Pentips Pen Needle) 29 gauge x 1/2 Needle Start: 03-16-2022 End: 04-09-2022 Lancets-Blood Glucose Strips (Gojji Lancet-Glucose Test Strp) 30 gauge Combo Pack Start: 03-16-2022 End: 04-09-2022 Pen Needle, Diab etic (Pentips Pen Needle) 29 gauge x 1/2 Needle Start: 03-16-2022 End: 04-09-2022 USE 1 EACH DAY A S DIRECTED [id number] Start: 06-14-2024 Lancets-Blood Glucose Strips (Gojji Lancet-Glucose Test Strp) 30 gauge Combo Pack Start: 03-16-2022 End: 04-09-2022 Pen Needle, Diab etic (Pentips Pen Needle) 29 gauge x 1/2 Needle Start: 03-16-2022 End: 04-09-2022 Lancets-Blood Glucose Strips (Gojji Lancet-Glucose Test Strp) 30 gauge Combo Pack Start: 03-16-2022 End: 04-09-2022 Pen Needle, Diab etic (Pentips Pen Needle) 29 gauge x 1/2 Needle Start: 03-16-2022 End: 04-09-2022 Goals Date Patient Goal Desired Activity /State Functional Status Date Assessment Result Facility 04-09-2022 Functional status 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 Baseline [facility] Work Phone: 03-16-2022 Functional status Patient at Baseline [facility] Work Phone: Mental Status Date Assessment Result Facility 04-09-2022 Cognitive function Cognitive Sta tus Patient at Baseline [facility] Work Phone: 03-16-2022 Cognitive function Cognitive Sta tus Patient at Baseline [facility] Work Phone: Clinical Notes 2021 to 03-23-2025 Sylvia Lui, - 03/23/2025 1:45 PM Lyudmila Burns DPM - 03/10/2025 4:00 PM EDTPatient InstructionsSylvia Lui DO - 03/08/2025 10:45 AM EDTPatient InstructionsPatient Instructions Note Date & Type Note Facility 03-23-2025 Note Time Out 03/23/2025. 2:18 PM. Confirmed correct patient, procedure, site, and patient consented. Anesthesia Topical anesthesia was used. Anesthetic medications included Lidocaine 2%, Proparacaine 0.5%. Procedure Preparation included 5% betadine to ocular surface, eyelid speculum. A 30 gauge needle was used. Injection: 1.25 mg Bevacizumab 1.25 MG/0.05ML Route: Intravitreal, Site: Right Eye [facility]: [address]-4, Lot: [id number], Expiration date: 04/18/2025 Post-op Post injection exam found visual acuity of at least counting fingers, no retinal detachment, perfused optic nerve. The patient tolerated the procedure well. There were no complications. The patient received written and verbal post procedure care education. Post injection medications were not given. Notes Intravitreal antiVEGF Treatment: Risks, benefits and alternatives were discussed for Intravitreal injection with the prescribed antiVEGF agent. With intraocular surgery, there is potential for direct retinal damage through retinal or RPE tear, or infection, with subsequent vision loss. Informative Intravitreal pamphlet provided as well as an OMIC consent. Of course, the treatment may fail to accomplish the overall therapeutic objectives, which is to stall or decrease the amount of retinal edema / bleeding, and therefore stall or improve vision loss. Intravitreal Anti-VEGF: Consent was obtained and questions answered. Operative eye was identified, receiving topical proparacaine, 5% betadine, and 2% xylocaine jelly. A lid speculum was placed and the inferotemp. injection site received additional anesthetic with a proparacaine soaked cotton swab. Using calipers (set at 3.5mm for pseudo and 4mm for phakic), the inferotemp. limbus was measured, sclera marked and 2 additional drops of betadine placed. Avoiding any talking to avoid contamination, intravitreal injection was carried out without difficulty. Any residual amount of medication was discarded appropriately. The patient tolerated the procedure well and instructed to call with increased pain, redness, decreased vision or concerns. [facility] 03-23-2025 History of Present illness Narrative Images from the original note were not included. 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 2:18 PM. Confirmed correct patient, procedure, site, and patient consented. Anesthesia Topical anesthesia was used. Anesthetic medications included Lidocaine 2%, Proparacaine 0.5%. Procedure Preparation included 5% betadine to ocular surface, eyelid speculum. A 30 gauge needle was used. Injection: 1.25 mg Bevacizumab 1.25 MG/0.05ML Route: Intravitreal, Site: Right Eye [facility]: [address]-7, Lot: [id number], Expiration date: 04/18/2025 Post-op Post injection exam found visual acuity of at least counting fingers, no retinal detachment, perfused optic nerve. The patient tolerated the procedure well. There were no complications. The patient received written and verbal post procedure care education. Post injection medications were not given. Notes Intravitreal antiVEGF Treatment: Risks, benefits and alternatives were discussed for Intravitreal injection with the prescribed antiVEGF agent. With intraocular surgery, there is potential for direct retinal damage through retinal or RPE tear, or infection, with subsequent vision loss. Informative Intravitreal pamphlet provided as well as an OMIC consent. Of course, the treatment may fail to accomplish the overall therapeutic objectives, which is to stall or decrease the amount of retinal edema / bleeding, and therefore stall or improve vision loss. Intravitreal Anti-VEGF: Consent was obtained and questions answered. Operative eye was identified, receiving topical proparacaine, 5% betadine, and 2% xylocaine jelly. A lid speculum was placed and the inferotemp. injection site received additional anesthetic with a proparacaine soaked cotton swab. Using calipers (set at 3.5mm for pseudo and 4mm for phakic), the inferotemp. limbus was measured, sclera marked and 2 additional drops of betadine placed. Avoiding any talking to avoid contamination, intravitreal injection was carried out without difficulty. Any residual amount of medication was discarded appropriately. The patient tolerated the procedure well and instructed to call with increased pain, redness, decreased vision or concerns. documented in this encounter [facility] 03-10-2025 History of Present illness Narrative Images from the original note were not included. Subjective Patient ID: Evelin Patterson is a 69 y.o. male who presents for Diabetic Shoes (Established patient presents today for diabetic shoe pickup. [address] Comfort shoes and 3 pair of heat molded inserts were dispensed. Patient wishes to wear shoes out today, patient understands that he cannot return or exchange shoes once worn outside. ). HPI Presents for fitting of therapeutic footwear and multi-laminate, multi-density heat moldable accommodative orthoses x 3 pair. Offers no specific concerns or complaints. Risk profile: Type II diabetes/IDDM. Diabetic peripheral neuropathy. Diabetic peripheral vasculopathy. Medical comorbidities. Polypharmacy. Eliquis therapy. Mobility, flexibility and dexterity restraints. Toenail deformity. Digital and/or shoe trauma and related complications. Medications Current Outpatient Medications: atorvastatin (Lipitor) 40 MG tablet, , Disp: , Rfl: Banophen 25 MG capsule, TAKE 1 - 2 CAPSULES BY MOUTH 4 TIMES A DAY FOR ITCHING, Disp: , Rfl: carvedilol (Coreg) 3.125 MG tablet, Oral for 90 Days, Disp: , Rfl: Eliquis 5 MG tablet, , Disp: , Rfl: esomeprazole (NexIUM) [address] capsule, TAKE 1 CAPSULE EVERY DAY, Disp: 90 capsule, Rfl: 3 fluticasone (Flonase) 50 MCG/ACT nasal spray, USE 2 SPRAYS IN EACH NOSTRIL IN MORNING.SHAKE GENTLY.BEFORE FIRST USE,PRIME PUMP.AFTER USE,CLEAN TIP AND REPLACE CAP., Disp: 16 mL, Rfl: 1 gabapentin (Neurontin) 100 MG capsule, Take 1 capsule (100 mg) by mouth in the morning and 1 capsule (100 mg) before bedtime., Disp: 60 capsule, Rfl: 2 insulin glargine (Lantus SoloStar) 100 UNIT/ML pen, INJECT 40 UNITS SUBCUTANEOUSLY EVERY DAY, Disp: 5 each, Rfl: 3 insulin pen needle (B-D UF III MINI PEN NEEDLES) 31G x 5 mm [facility], USE 1 EACH DAY DIRECTED, Disp: 100 each, Rfl: 9 isosorbide mononitrate ER (Imdur) 30 MG 24 hr tablet, Take 1 tablet (30 mg) by mouth Daily, Disp: 30 tablet, Rfl: 11 levothyroxine (Synthroid, Levoxyl) 200 MCG tablet, Take 200 mcg by mouth Daily, Disp: , Rfl: liothyronine (Cytomel) 5 MCG tablet, TAKE 1 TABLET BY MOUTH EVERY DAY ON EMPTY STOMACH FOR 30 DAYS, Disp: , Rfl: lisinopril 40 MG tablet, Take 1 tablet (40 mg) by mouth Daily, Disp: 30 tablet, Rfl: 5 nystatin (Mycostatin) cream, Apply topically 2 (two) times a day, Disp: 30 g, Rfl: 3 rOPINIRole (Requip) 0.5 MG tablet, TAKE 1 TABLET EVERY DAY AT BEDTIME, Disp: 90 tablet, Rfl: 3 sertraline (Zoloft) 100 MG tablet, TAKE 1 TABLET BY MOUTH DAILY, Disp: 90 tablet, Rfl: 3 Allergies Metformin, Pioglitazone, and Prochlorperazine Past Surgical History Past Surgical History: Procedure Laterality Date CHOLECYSTECTOMY COLONOSCOPY HEART CATH 2018 LITHOTRIPSY NOSE SURGERY Family History Family History Problem Relation Name Age of Onset Hypertension Mother Lung cancer Mother Objective General Examination: GENERAL EXAMINATION: Alert and oriented. Pleasant disposition. FOOT EXAM: Date of Last Foot Exam: 01/19/2025. Sensory testing performed: sensations diminished Sensory and motor testing performed: strength diminished Pedal pulse taking performed: 1+ Vascular: DORSALIS PEDIS PULSE: 1/4, bilaterally. POSTERIOR TIBIAL PULSE: Faintly palpable, bilaterally. TEMPERATURE GRADIENT: warm to slightly cool. EDEMA: Symmetrical, mild pitting edema bilateral ankles, with multiple telangiectasias. Mild stasis dermatosis. CAPILLARY FILLING TIME(sec): capillary fill intact bilateral digits less than 3 secs. Neurologic: TINELS SIGN: Negative along the tarsal canal. VIBRATORY: Absent at the MTP joints. SHARP SENSATION:tactile and light touch sensation is diminished over the digital and forefoot areas. SEMMES-TRAVIS 5.07 MONOFILAMENT: Unable to localize multiple points plantarly bilateral. Dermatologic: SKIN FINDINGS: Skin turgor is fair. HYPERTROPHIC LESION: Diffuse forefoot tyloma; without discrete digital keratotic lesions. Distal displacement of the forefoot plantar fat pad. Diffuse, slightly raised keratosis along the rim of both heels. HYPERKERATOSIS:diffuse, raised hyperkeratosis along the rim of each heel. NAIL PATHOLOGY: All digits: None are spared: Varying degrees of toenail dystrophy and clinical mycosis. INTERDIGITAL MACERATION: clean, dry, not inflamed. ULCER: no sign of ulceration or open wound. SKIN PATHOLOGY: Mild non-inflamed xerosis bilateral. Orthopedic: FOOT MORPHOLOGY: Stance assessment: Symmetrical cavus foot type. LIMB LENGTH DISCREPANCY: no distinct leg length discrepanccy noted. JOINT RANGE OF MOTION: Passive ankle dorsiflexion is limited, consistent with mild gastrocnemius equinus. Otherwise maintains functional ankle, subtalar, midtarsal and MTP joint range of motion. DEFORMITIES: flexible dorsal contracture of the lesser digits. MUSCLE STRENGTH: Generalized lower extremity weakness, without focal deficit. Radiology: Assessment/Plan Chronic, stable onychodystrophy/mycosis multiple digits. Type II diabetes/IDDM. Diabetic peripheral neuropathy/LOPS (Q9). Diabetic peripheral vasculopathy (Q8). Obesity. Plan: Indications for therapeutic footwear and accommodative orthoses: As noted above: Accommodate digital and forefoot deformity. Offloading of digital and forefoot structures; dispersion of peak plantar pressures; reducing potential for callus formation, skin breakdown, neuropathic ulceration and related complications. Accommodate swelling as indicated. Allow patient to maintain current ADLs and walking activity; reducing risk profile. Fitting of Dr. Olivera therapeutic footwear and multi-laminate, multi-density accommodative orthoses x 3 pair; heat molded per protocol and formed in the weight-bearing position. All are noted to be in good quality and therapeutic condition, with no flaws or defects noted. Patient is able to effectively place each shoe with assistance. The footwear appear to fit well in length and width, with sufficient space through the forefoot and toe box areas. Patient is able to ambulate without difficulty; noting no perceived areas of pressure or ill-fit or heel slippage. Initial impression is quite favorable; stating he wanted to wear them out of the clinic today. All instructions relative to the acclimating process are reviewed in detail, sufficient to his understanding: Emphasis on daily inspection for any signs of skin irritation, blister formation, areas of perceived tightness or ill-fit, heel slippage etc.; wearing of the footwear inside only, until certain that return is not necessary. Goals, objectives and rationale reviewed. All appropriate documents are reviewed sufficient to his understanding, signed, witnessed and dated. Follow up: 3 weeks, sooner if any problems arise. Procedure: This note was created with the assistance of a speech recognition program. While intending to generate a timely document that accurately reflects the content of the visit, no guarantee can be provided that every grammatical or spelling mistake has been or will be identified or corrected. Thank you for your understanding. Carol Burns DPM documented in this encounter [facility] 03-10-2025 Instructions Carol Burns DPM - 03/10/2025 4:00 PM EDT Acclimating instructions as noted documented in this encounter [facility] 03-08-2025 Note Right Eye Quality was good. Scan locations included subfoveal. Progression has worsened. Findings include abnormal foveal contour, intraretinal fluid, subretinal fluid. Left Eye Quality was good. Scan locations included subfoveal. Progression has worsened. Findings include abnormal foveal contour, intraretinal fluid, subretinal fluid. [facility] 03-08-2025 History of Present illness Narrative Images from the original note were not included. Assessment/Plan Diagnoses and all orders for this visit: Age-related nuclear cataract of both eyes - Cataract, OU: Observe for now without intervention. The patient was advised to contact us if any change or worsening of vision - Observe for now until the retina is treated for DME and flattened out. 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 Stressed the importance of strong glucose control. Advised of importance of at least yearly dilated examinations, but to contact us immediately for any problems or concerns. Continue aggressive control of the blood sugar, blood pressure and cholesterol. - Mr. Patterson shows DME both eyes (OU) that would ideally be controlled prior to treatment of his cataracts. Discussed the usage of antiVEGF both eyes (OU). R/B/A/E provided. Will start with Avastin. documented in this encounter [facility] 02-15-2025 History of Present illness Narrative Images from the original note were not included. Subjective Patient ID: Evelin Patterson is a 69 y.o. male who presents for Diabetic Shoes (Established patient presents today to be measured for diabetic shoes. ). HPI Presents today for measurements to pursue therapeutic footwear and accommodative orthoses; education and counseling relative to appropriate footwear selection and sizing. Risk profile: Type II diabetes/IDDM. Diabetic peripheral neuropathy. Diabetic peripheral vasculopathy. Medical comorbidities. Polypharmacy. Eliquis therapy. Mobility, flexibility and dexterity restraints. Toenail deformity. Digital and/or shoe trauma and related complications. Medications Current Outpatient Medications: atorvastatin (Lipitor) 40 MG tablet, , Disp: , Rfl: Banophen 25 MG capsule, TAKE 1 - 2 CAPSULES BY MOUTH 4 TIMES A DAY FOR ITCHING, Disp: , Rfl: carvedilol (Coreg) 3.125 MG tablet, Oral for 90 Days, Disp: , Rfl: Eliquis 5 MG tablet, , Disp: , Rfl: esomeprazole (NexIUM) [address] capsule, TAKE 1 CAPSULE EVERY DAY, Disp: 90 capsule, Rfl: 3 fluticasone (Flonase) 50 MCG/ACT nasal spray, USE 2 SPRAYS IN EACH NOSTRIL IN MORNING.SHAKE GENTLY.BEFORE FIRST USE,PRIME PUMP.AFTER USE,CLEAN TIP AND REPLACE CAP., Disp: 16 mL, Rfl: 1 gabapentin (Neurontin) 100 MG capsule, Take 1 capsule (100 mg) by mouth in the morning and 1 capsule (100 mg) before bedtime., Disp: 60 capsule, Rfl: 2 insulin glargine (Lantus SoloStar) 100 UNIT/ML pen, INJECT 40 UNITS SUBCUTANEOUSLY EVERY DAY, Disp: 5 each, Rfl: 3 insulin pen needle (B-D UF III MINI PEN NEEDLES) 31G x 5 mm [facility], USE 1 EACH DAY DIRECTED, Disp: 100 each, Rfl: 9 isosorbide mononitrate ER (Imdur) 30 MG 24 hr tablet, Take 1 tablet (30 mg) by mouth Daily, Disp: 30 tablet, Rfl: 11 levothyroxine (Synthroid, Levoxyl) 200 MCG tablet, Take 200 mcg by mouth Daily, Disp: , Rfl: liothyronine (Cytomel) 5 MCG tablet, TAKE 1 TABLET BY MOUTH EVERY DAY ON EMPTY STOMACH FOR 30 DAYS, Disp: , Rfl: lisinopril 40 MG tablet, Take 1 tablet (40 mg) by mouth Daily, Disp: 30 tablet, Rfl: 5 nystatin (Mycostatin) cream, Apply topically 2 (two) times a day, Disp: 30 g, Rfl: 3 rOPINIRole (Requip) 0.5 MG tablet, TAKE 1 TABLET EVERY DAY AT BEDTIME, Disp: 90 tablet, Rfl: 3 sertraline (Zoloft) 100 MG tablet, TAKE 1 TABLET BY MOUTH DAILY, Disp: 90 tablet, Rfl: 3 Allergies Metformin, Pioglitazone, and Prochlorperazine Past Surgical History Past Surgical History: Procedure Laterality Date CHOLECYSTECTOMY COLONOSCOPY HEART CATH 2018 LITHOTRIPSY NOSE SURGERY Family History Family History Problem Relation Name Age of Onset Hypertension Mother Lung cancer Mother Objective General Examination: GENERAL EXAMINATION: Alert and oriented. Pleasant disposition. FOOT EXAM: Date of Last Foot Exam: 01/19/2025. Sensory testing performed: sensations diminished Sensory and motor testing performed: strength diminished Pedal pulse taking performed: 1+ Vascular: DORSALIS PEDIS PULSE: 1/4, bilaterally. POSTERIOR TIBIAL PULSE: Faintly palpable, bilaterally. TEMPERATURE GRADIENT: warm to slightly cool. EDEMA: Symmetrical, mild pitting edema bilateral ankles, with multiple telangiectasias. Mild stasis dermatosis. CAPILLARY FILLING TIME(sec): capillary fill intact bilateral digits less than 3 secs. Neurologic: TINELS SIGN: Negative along the tarsal canal. VIBRATORY: Absent at the MTP joints. SHARP SENSATION:tactile and light touch sensation is diminished over the digital and forefoot areas. SEMMES-TRAVIS 5.07 MONOFILAMENT: Unable to localize multiple points plantarly bilateral. Dermatologic: SKIN FINDINGS: Skin turgor is fair. HYPERTROPHIC LESION: Diffuse forefoot tyloma; without discrete digital keratotic lesions. Distal displacement of the forefoot plantar fat pad. Diffuse, slightly raised keratosis along the rim of both heels. HYPERKERATOSIS:diffuse, raised hyperkeratosis along the rim of each heel. NAIL PATHOLOGY: All digits: None are spared: Varying degrees of toenail dystrophy and clinical mycosis. INTERDIGITAL MACERATION: clean, dry, not inflamed. ULCER: no sign of ulceration or open wound. SKIN PATHOLOGY: Mild non-inflamed xerosis bilateral. Orthopedic: FOOT MORPHOLOGY: Stance assessment: Symmetrical cavus foot type. LIMB LENGTH DISCREPANCY: no distinct leg length discrepanccy noted. JOINT RANGE OF MOTION: Passive ankle dorsiflexion is limited, consistent with mild gastrocnemius equinus. Otherwise maintains functional ankle, subtalar, midtarsal and MTP joint range of motion. DEFORMITIES: flexible dorsal contracture of the lesser digits. MUSCLE STRENGTH: Generalized lower extremity weakness, without focal deficit. Radiology: Assessment/Plan Chronic, stable onychodystrophy/mycosis multiple digits. Type II diabetes/IDDM. Diabetic peripheral neuropathy/LOPS (Q9). Diabetic peripheral vasculopathy (Q8). Obesity. Plan: Indications for therapeutic footwear and accommodative orthoses: As noted above: Accommodate digital and forefoot deformity. Offloading of digital and forefoot structures; dispersion of peak plantar pressures; reducing potential for callus formation, skin breakdown, neuropathic ulceration and related complications. Accommodate swelling as indicated. Allow patient to maintain current ADLs and walking activity; reducing risk profile. Measurements obtained in the weight-bearing position utilizing Face++nock device. Patient education and counseling relative to sizing and appropriate footwear selection. Rx complete. Goals, rationale and objectives reviewed. Follow up for fitting of therapeutic footwear and accommodative orthoses. Procedure: This note was created with the assistance of a speech recognition program. While intending to generate a timely document that accurately reflects the content of the visit, no guarantee can be provided that every grammatical or spelling mistake has been or will be identified or corrected. Thank you for your understanding. Carol Burns DPM documented in this encounter [facility] 02-15-2025 Instructions Carol Burns DPM - 02/15/2025 1:00 PM EDT As noted documented in this encounter [facility] 01-19-2025 History of Present illness Narrative Images from the original note were not included. Subjective Patient ID: Evelin Patterson is a 69 y.o. male who presents for Diabetic Shoes (Pt is here today requesting to start the diabetic shoe process. ). HPI Patient last in clinic in November of 2021. Chief complaint: Thickened, deformed and discolored toenails. Insidious onset, chronic deformity of multiple years duration. Patient describes minimal pressure; no specific discomfort, acknowledging diabetic peripheral neuropathy. Complains of catching and snagging on clothing, bed sheets etc.. Denies bleeding or drainage. Self care measures are difficult, ineffective and not practical; increasing risk exposure. Family members unable to provide effective care. Patient is well satisfied with palliative care measures by history. Risk profile: Type II diabetes/IDDM. Diabetic peripheral neuropathy. Diabetic peripheral vasculopathy. Medical comorbidities. Polypharmacy. Eliquis therapy. Mobility, flexibility and dexterity restraints. Toenail deformity. Digital and/or shoe trauma and related complications. Medications Current Outpatient Medications: atorvastatin (Lipitor) 40 MG tablet, , Disp: , Rfl: Banophen 25 MG capsule, TAKE 1 - 2 CAPSULES BY MOUTH 4 TIMES A DAY FOR ITCHING, Disp: , Rfl: carvedilol (Coreg) 3.125 MG tablet, Oral for 90 Days, Disp: , Rfl: Eliquis 5 MG tablet, , Disp: , Rfl: esomeprazole (NexIUM) [address] capsule, TAKE 1 CAPSULE EVERY DAY, Disp: 90 capsule, Rfl: 3 fluticasone (Flonase) 50 MCG/ACT nasal spray, USE 2 SPRAYS IN EACH NOSTRIL IN MORNING.SHAKE GENTLY.BEFORE FIRST USE,PRIME PUMP.AFTER USE,CLEAN TIP AND REPLACE CAP., Disp: 16 mL, Rfl: 1 gabapentin (Neurontin) 100 MG capsule, Take 1 capsule (100 mg) by mouth in the morning and 1 capsule (100 mg) before bedtime., Disp: 60 capsule, Rfl: 2 insulin glargine (Lantus SoloStar) 100 UNIT/ML pen, INJECT 40 UNITS SUBCUTANEOUSLY EVERY DAY, Disp: 5 each, Rfl: 3 insulin pen needle (B-D UF III MINI PEN NEEDLES) 31G x 5 mm [facility], USE 1 EACH DAY DIRECTED, Disp: 100 each, Rfl: 9 isosorbide mononitrate ER (Imdur) 30 MG 24 hr tablet, Take 1 tablet (30 mg) by mouth Daily, Disp: 30 tablet, Rfl: 11 levothyroxine (Synthroid, Levoxyl) 200 MCG tablet, Take 200 mcg by mouth Daily, Disp: , Rfl: liothyronine (Cytomel) 5 MCG tablet, TAKE 1 TABLET BY MOUTH EVERY DAY ON EMPTY STOMACH FOR 30 DAYS, Disp: , Rfl: lisinopril 40 MG tablet, Take 1 tablet (40 mg) by mouth Daily, Disp: 30 tablet, Rfl: 5 nystatin (Mycostatin) cream, Apply topically 2 (two) times a day, Disp: 30 g, Rfl: 3 rOPINIRole (Requip) 0.5 MG tablet, TAKE 1 TABLET EVERY DAY AT BEDTIME, Disp: 90 tablet, Rfl: 3 sertraline (Zoloft) 100 MG tablet, TAKE 1 TABLET BY MOUTH DAILY, Disp: 90 tablet, Rfl: 3 Allergies Metformin, Pioglitazone, and Prochlorperazine Past Surgical History Past Surgical History: Procedure Laterality Date CHOLECYSTECTOMY COLONOSCOPY HEART CATH 2018 LITHOTRIPSY NOSE SURGERY Family History Family History Problem Relation Name Age of Onset Hypertension Mother Lung cancer Mother Objective General Examination: GENERAL EXAMINATION: Alert and oriented. Pleasant disposition. FOOT EXAM: Date of Last Foot Exam: 01/19/2025. Sensory testing performed: sensations diminished Sensory and motor testing performed: strength diminished Pedal pulse taking performed: 1+ Vascular: DORSALIS PEDIS PULSE: 1/4, bilaterally. POSTERIOR TIBIAL PULSE: Faintly palpable, bilaterally. TEMPERATURE GRADIENT: warm to slightly cool. EDEMA: Symmetrical, mild pitting edema bilateral ankles, with multiple telangiectasias. Mild stasis dermatosis. CAPILLARY FILLING TIME(sec): capillary fill intact bilateral digits less than 3 secs. Neurologic: TINELS SIGN: Negative along the tarsal canal. VIBRATORY: Absent at the MTP joints. SHARP SENSATION:tactile and light touch sensation is diminished over the digital and forefoot areas. SEMMES-TRAVIS 5.07 MONOFILAMENT: Unable to localize multiple points plantarly bilateral. Dermatologic: SKIN FINDINGS: Skin turgor is fair. HYPERTROPHIC LESION: Diffuse forefoot tyloma; without discrete digital keratotic lesions. Distal displacement of the forefoot plantar fat pad. Diffuse, slightly raised keratosis along the rim of both heels. HYPERKERATOSIS:diffuse, raised hyperkeratosis along the rim of each heel. NAIL PATHOLOGY: All digits: None are spared: Varying degrees of toenail dystrophy, hypertrophy, thickening, elongation, discoloration, pincer deformity, brittleness, clubbing, crumbly texture, subtotal detachment, periungual hyperkeratosis; without drainage. INTERDIGITAL MACERATION: clean, dry, not inflamed. ULCER: no sign of ulceration or open wound. SKIN PATHOLOGY: Mild non-inflamed xerosis bilateral. Orthopedic: FOOT MORPHOLOGY: Stance assessment: Symmetrical cavus foot type. LIMB LENGTH DISCREPANCY: no distinct leg length discrepanccy noted. JOINT RANGE OF MOTION: Passive ankle dorsiflexion is limited, consistent with mild gastrocnemius equinus. Otherwise maintains functional ankle, subtalar, midtarsal and MTP joint range of motion. DEFORMITIES: flexible dorsal contracture of the lesser digits. MUSCLE STRENGTH: Generalized lower extremity weakness, without focal deficit. Radiology: Assessment/Plan Chronic, stable onychodystrophy/mycosis multiple digits. Type II diabetes/IDDM. Diabetic peripheral neuropathy/LOPS (Q9). Diabetic peripheral vasculopathy (Q8). Obesity. Plan: patient remains well satisfied and a conservative and palliative care approach. Expresses no interest in oral therapy; nor is it recommended. Expresses no interest in topical therapy due to mobility and flexibility restraints. Hygiene and skin care measures discussed as he is able to do so. Pre-determination for therapeutic footwear and accommodative orthoses. Most recent fitted footwear in 2021 are now matted and notably deteriorated, no longer therapeutic. Procedure: Toenail debridement: Aseptic technique: Hand and power instrumentation: Onychodebridement in length and thickness, with curettage of any cryptotic margins, all periungual debris; providing effective pressure relief; reducing shoe and digital trauma; reducing potential risks associated with the diabetic neuropathic and vasculopathic foot condition and related complications. This note was created with the assistance of a speech recognition program. While intending to generate a timely document that accurately reflects the content of the visit, no guarantee can be provided that every grammatical or spelling mistake has been or will be identified or corrected. Thank you for your understanding. Carol Burns DPM documented in this encounter [facility] 01-19-2025 Instructions Carol Burns DPM - 01/19/2025 10:45 AM EDT As noted documented in this encounter [facility] 10-28-2024 Note [facility] Cardiology Clinic Note Chief Complaint: New patient here to re-establish care. He had heart cath back in 2009 at [facility]. He was diagnosed with afib in February 2024, and he's only been taking Eliquis once daily. He's requesting clearance for upcoming colonoscopy. He has intermittent angina and SOB with exertion. Sometimes feels near-syncope. Says he passed out a few years ago. HPI: Evelin Patterson is a 68 y.o. male With a known history of mild coronary artery disease, hypertension, morbid obesity, type 2 diabetes mellitus on insulin, and chronic kidney disease here to reestablish care He was recently admitted to the hospital with COVID; he was found to be in atrial fibrillation. He was started on Eliquis. He requires upcoming colonoscopy for GI symptoms. He reports multiple episodes of exertional chest pressure and shortness of breath. These have been escalating. He denies orthopnea or paroxysmal external dyspnea. He has mild lower extremity edema. He denies palpitations but does have significant postural lightheadedness and dizziness and near syncopal episodes. Cardiology ROS: Review of Systems Cardiovascular: Positive for chest pain, dyspnea on exertion and near-syncope. Musculoskeletal: Positive for arthritis, back pain, joint pain and joint swelling. Neurological: Positive for dizziness and light-headedness. All other systems reviewed and are negative. Past Medical History He has no past medical history on file. Surgical History He has no past surgical history on file. Social History He has no history on file for tobacco use, alcohol use, and drug use. Family History No family history on file. Allergies Patient has no allergy information on record. Medications No current outpatient medications on file. Last Recorded Vitals BP (!) 142/100 (BP Location: Left arm, Patient Position: Sitting) Pulse 74 Ht 1.778 m (5' 10 ) Wt (!) 155 kg (341 lb) SpO2 98% BMI 48.93 kg/m??? Physical Examination: GENERAL: alert and oriented x3, well developed, in no acute distress. HEAD: atraumatic, normocephalic. EYES: DAVID, EOMI. NECK: trachea midline, no JVD present, no carotid bruits present. CARDIAC: S1, S2 present. RRR. No murmur, rubs, or gallops. RESPIRATORY: CTAB, no increased effort of breathing, no rales, rhonchi, or wheezing. ABDOMEN: soft, nontender, nondistended. EXTREMITIES: no lower extremity edema, peripheral pulses are 2+ bilaterally. No rash/skin discoloration present. NEURO: strength/sensation equal and symmetric in bilateral upper and lower extremities. PSYCH: appropriate mood, affect, and judgement. Investigations: Cardiac catheterization 09/28/2009 Principal findings: 1. Mild single-vessel coronary artery disease involving the proximal right coronary artery 2. Evidence of radial artery spasm relieved with nitroglycerin 3. Normal left ventricular systolic function 12-lead EKG 10/28/2024: Normal sinus rhythm, sinus arrhythmia Assessment: Coronary artery disease Chest pain/Unstable angina Dyspnea on exertion Hypertension - Poorly controlled Near syncope Atrial fibrillation? Diabetes mellitus COPD Spine disorder Morbid obesity BMI 45-49 Preoperative evaluation Plan: Optimal medical therapy for coronary artery disease should include aspirin/DOAC, moderate to high intensity statin in the form of atorvastatin or rosuvastatin (will switch from Zocor), a beta-eva and a RAAS inhibitor The patient is not on a beta-eva; will start Coreg 3.125 mg p.o. twice daily given DM Given diabetes and vascular disease, he should be on an SGLT2 inhibitor or GLP-1 receptor agonist. Will defer to internal further lab testing given his chronic kidney disease. A 30-day event monitor may be warranted particular given his diagnosis of atrial fibrillation for which I have no documentation as well as his symptoms of lightheadedness, dizziness, and near syncope Given his symptoms of unstable angina, and the need for more refined risk stratification prior to upcoming procedures, I have recommended proceeding directly with cardiac catheterization; we will schedule him for a right heart catheterization and coronary angiography via a right internal jugular and left radial approach given his body habitus. Will defer any elective procedures or surgeries until further cardiovascular testing can be completed. Gladys Hays MD, MPH, FACC, [facility], [facility] Interventional Cardiology Pager Email: [email or web address] 05-03-2022 History of Present illness Narrative Images from the original note were not included. EMERGENCY TRIAGE, TREAT AND TRANSPORT (ET3) DOCUMENTATION OF TELEHEALTH VISIT Date / Time: 05/01/2022599 Name: Evelin Patterson : 1955 SSN: [id number] EMS Agency: [facility] [x] Verbal consent obtained [] Implied [...] Peter Molina DO documented in this encounter [facility] 04-08-2022 Progress note Note Date/Time April 08, 2022 1:38pm [facility] [address] [place] [address] Hospitalist Progress Note Signed Patient: Evelin Patterson MR#: [id number] : 1955 Acct:[id number] Age/Sex: 66 / M Adm Date: 2 Loc: Room: [address] [place] [address] Type: ADM INOo Attending Dr: Lupe Hernandez [...] Hypothyroidism: Plan Patient currently awaiting placement to snf facility. Remains in normal sinus rhythm. He [...] <Electronically signed by Lupe Hernandez MD> 04/08/228 [facility] Work Phone: 1(545) 820-111908-28-2022 Discharge summary Author Luke Moran [facility] April 07, 2022 4:16pm Note Date/Time April 05, 2022 10 :05am [facility] [address] [place] [address] Discharge Summary Signed with Addenda Patient: Evelin Patterson MR#: [id number] : 1955 Acct:[id number] Age/Sex: 66 / M Adm Date: 2 Loc: Room: [address] [place] [address]: Luke Moran MD Copies to: [...] discharged home in stable condition to a snf facility. Medical therapy was adjusted as noted [...] 10:24: POC Glucose 271 04/03/22 07:34: Free Lamoure LC, Quant 93.9 H, Free Lambda LC, Quant 61.6 H, Free Lamoure/Lambda Ratio 1.52 Exam Physical Exam Vital Signs: Temp Pulse Resp BP Pulse Ox O2 Del Method O2 Flow Rate 97.9 F 85 20 134/76 90 L Room Air 2 04/05/22 08:00 04/05/22 08:00 04/05/22 08:00 04/05/22 08:00 04/05/22 08:00 04/05/22 08:00 04/05/22 08:00 FiO2 30 04/04/22 22:34 Discharge Plan Discharge Plan [facility] Disposition[facility] Activity: Ambulate as Tolerated Diet: Diabetic and Low-Sodium Additional Instructions: Please have company providing CPAP machine fit the patient with a mask that he can tolerate. Use a CPAP of 8 whenever asleep until the sleep study performed. [facility]itentiary Facility to manage care: - Full code [...] Instructions: Sliding Scale ACHS Other Ambulatory Orders: [employer] polysom procedure (Routine) Timeframe: 3 Weeks Location: Determined by Patient Ordered By: Luke Moran Follow Up: [facility] [Outside] ([facility] or Central Scheduling will call you to arrange date/time for sleep study. ) Documented By: Luke Moran MD 04/07/22 0959 Signed By: <Electronically signed by Luke Moran MD> 04/07/22 2060 [facility] Work Phone: 1(555) 628-512208-27-2022 Progress note Author Luke Moran [facility] April 06, 2022 2:50pm Note Date/Time April 06, 2022 2: 50pm [facility] [address] [place], [place] [address] Hospitalist Progress Note Signed Patient: Evelin Patterson MR#: [id number] : 1955 Acct:[id number] Age/Sex: 66 / M Adm Date: 2 Loc: Room: [address] [place] [address] Type: ADM INOo Attending Dr: Luke Moran [...] <Electronically signed by Luke Moran MD> 04/06/22 0628 [facility] Work Phone: 1(434) 983-480108-25-2022 Progress note Author Luke Moran [facility] April 04, 2022 4:25pm Note Date/Time April 04, 2022 4: 25pm [facility] [address] [place] [address] Hospitalist Progress Note Signed Patient: Evelin Patterson MR#: [id number] : 1955 Acct:[id number] Age/Sex: 66 / M Adm Date: 2 Loc: 3T Room: [address] [place] [address] Type: ADM INOo Attending Dr: Luke Moran [...] Culture - Preliminary No Growth 1 Day 08/23/22 19:32 Blood - Left Hand Blood Culture [...] Bernardinoq PRN Reason Stop Dose Admin Acetaminophen 1,000 [...] signed by Luke Moran MD> 04/04/22 1625 [facility] Work Phone: 1(572) 708-181608-24-2022 Progress note Author Lkue Moran [facility] April 03, 2022 2:05pm Note Date/Time April 03, 2022 2: 05pm [facility] [address] [place] [address] Hospitalist Progress Note Signed Patient: Evelin Patterson MR#: [id number] : 1955 Acct:[id number] Age/Sex: 66 / M Adm Date: 2 Loc: Room: [address] [place] [address] Type: ADM INOo Attending Dr: Luke Moran [...] <Electronically signed by Luke Moran MD> 04/03/22 1403 [facility] Work Phone: 1(938) 586-501808-23-2022 History and physical note Author Luke Moran [facility] April 02, 2022 7:48pm Note Date/Time April 02, 2022 7: 45pm [facility] [address] [place] [address] Hospitalist H&P Signed Patient: Evelin Patterson MR#: [id number] : 1955 Acct:[id number] Age/Sex: 66 / M Adm Date: 2 Loc: ER Room: Type: [facility] ER Attending Dr: Copies to: MD Jair [...] Type: None Social History Comments: Lives in [facility] in [facility] Medications and Allergies Allergies metformin Adverse [...] % (Auto) 8.7 % (.) 04/02/22 17:51 [place] % (Auto) 12.2 % (.) 04/02/22 17:51 Eos % (Auto) 2.4 % (.) 04/02/22 17:51 Baso % (Auto) 0.6 % (.) 04/02/22 17:51 Neut # (Auto) 6.4 x10E3/uL (1.8-7.7) 04/02/22 17:51 Lymph # (Auto) 0.7 x10E3/uL (1.00-4.8) L 04/02/22 17:51 [place] # (Auto) 1.0 x10E3/uL (0.0-0.8) H 04/02/22 [...] <Electronically signed by Luke Moran MD> 04/02/221947 [facility] Work Phone: 1([phone]) 385-792308-06-2022 Discharge summary Author Xin Phan [facility] March 16, 2022 9:37am Note Date/Time March 16, 2022 9:3 7am [facility] [address] [place] [address] Discharge Summary Signed Patient: Evelin Patterson MR#: [id number] : 1955 Acct:[id number] Age/Sex: 66 / M Adm Date: 2 Loc: 3T Room: [address] [place] [address]: Xin Phan MD Copies to: MD Ayden Wilson MD~ Providers Date of Discharge: 03/16/22 Discharging Provider: Xin Phan Primary Care Provider: Ayden rFeeman Consults: 03/14/22 01:52 Consult to Nephrology Routine [...] who was transferred from [facility] for acute kidney injury.? Patient presented with generalized weakness and disorientation at [facility]. He was noted to have blood [...] No fevers Paperwork from [facility] reviewed, chest x-ray with no acute cardiopulmonary process.? Sodium 129.? Potassium 3.3.? Creatinine 2.52.? WBC 6.8.? Hemoglobin 12.5.? Glucose 4.34.? Patient will be admitted by the hospitalist team for further evaluation and management. Patient was positive for COVID, patient was alert oriented x3 at [facility], patient states that he has been [...] untreated sleep apnea Instructions: Blood Glucose Monitoring, [facility] COVID-19 Discharge Instructions Prescriptions: New Levemir FlexTouch [...] signed by Xin Phan MD> 03/16/22 0937 [facility] Work Phone: 1(956) 545-817608-05-2022 [facility] March 15, 2022 3:43pm Note Date/Time March 15, 2022 3:3 7pm [facility] [address] [place] [address] Nephrology Progress Note Signed Patient: Evelin Patterson MR#: [id number] : 1955 Acct:[id number] Age/Sex: 66 / M Adm Date: 2 Loc: Room: [address] [place] [address] Type: ADM IN Attending Dr: Xin Phan MD Copies to: ~ Date of Service: 03/15/2022 Subjective Subjective Narrative: This is 66-year-old male patient with a past medical history of morbid obesity, endocarditis, paroxysmal A. fib, diabetes type 2, anxiety and depression and chronic kidney disease stage III. Patient presented to [facility] with feeling weak and disoriented for 2 weeks which has gotten worse. Patient has been having cough with decreased appetite and loss of taste for a week. Lab at [facility] shows acute kidney injury with creatinine up to 4.3 mg/dL along with hyperglycemia with initial blood glucose level more than 400. Patient's blood pressure was in the 80s at [facility]. Patient was given IV fluid and [...] 500 Mg Tablet) 500 mg PO DAILY [facility] Stop: 03/14/23 08:59 Last Admin: 03/15/22 08:34 Dose: 500 mg Dexamethasone 2 mg/ (Dexamethasone 4 mg) 6 mg PO DAILY [facility] Stop: 03/22/23 08:59 Last Admin: 03/15/22 [...] 5,000 Unit/Ml Vial) 5,000 unit SUBCUT Q12HR [facility] Stop: 03/14/23 08:59 Last Admin: 03/15/22 08:34 Dose: 5,000 unit Sodium Chloride (0.9% Sodium Chloride 1,000 Ml) 1,000 mls @ 100 mls/hr IV .[id number] Stop: 03/14/23 01:59 Last Admin: 03/15/22 06:46 Dose: 100 mls/hr Insulin Aspart (Insulin Aspart 300 Units/3 Ml Insuln.Pen) 0 units SUBCUT TID.[facility]; Protocol Stop: 03/14/23 07:59 Last Admin: 03/15/22 12:06 Dose: 9 units Insulin Detemir (Insulin Detemir 300 Units/3 Ml Insuln.Pen) 40 units SUBCUT DAILY.WITH.BKFAST [facility] Stop: 08/06/23 07:59 Zinc Sulfate (Zinc Sulfate 220 Mg [...] question Documented By: Sarah Osuna MD 03/15/22 1534 Signed By: <Electronically signed by Sarah Osuna MD> 03/15/22 1541 [facility] Work Phone: 1([phone]) 490-308008-05-2022 Progress note Author Xin Phan [facility] March 15, 2022 12:44pm Note Date/Time March 15, 2022 12: 44pm [facility] [address] [place] [address] Hospitalist Progress Note Signed Patient: Evelin Patterson MR#: [id number] : 1955 Acct:[id number] Age/Sex: 66 / M Adm Date: 2 Loc: Room: [address] [place] [address] Type: ADM IN Attending Dr: Xin Phan MD Copies to: ~ Date of Service: 03/15/2022 Subjective Subjective Narrative: Patient is a 66-year-old male, with a PMHx of Morbid obesity, endocarditis in August of this year, atrial fibrillation, type 2 diabetes, hypertension, liver cirrhosis, anxiety and depression who was transferred from [facility] for acute kidney injury. Patient presented with generalized weakness and disorientation at [facility]. He was noted to have blood [...] oral intake. Presented at [facility] with low blood pressures in the 80s. ?Creatinine at [facility] 4.34. Baseline creatinine ~1.4 - Nephrology [...] diet ?Blood sugar at [facility] was in the 400s ? Will [...] <Electronically signed by Xin Phan MD> 03/15/22 1242 [facility] Work Phone: 1([phone]) 219-157408-04-2022 Progress note Author Renato Looney [facility] March 14, 2022 2:14pm Note Date/Time March 14, 2022 2:1 4pm [facility] [address] [place] [address] Progress Note Signed Patient: Evelin Patterson MR#: [id number] : 1955 Acct:[id number] Age/Sex: 66 / M Adm Date: 2 Loc: 3T Room: [address] [place] [address] Type: ADM IN Attending Dr: Renato Looney MD Copies to: ~ Date of Service: 03/14/2022 Progress Narrative Note PROGRESS NOTE Progress Note: Patient seen and evaluated by rawhide bone roller early this morning and also by myself. Briefly, patient is a 66-year-old male past medical history significant for obesity, atrial fibrillation, hypertension, diabetes, liver cirrhosis, mood disorder and recent endocarditis infection who presented to outlying facility due to generalized weakness found to have COVID-19 and acute kidney injury and was transferred to [facility] for further evaluation and management. 1. Acute [...] <Electronically signed by Renato Looney MD> 03/14/22 1412 [facility] Work Phone: 1(406) 807-801708-04-2022 Consult note Author Sarah Osuna [facility] March 14, 2022 12:30pm Note Date/Time March 14, 2022 12: 30pm [facility] [address] [place] [address] Nephrology Consult Note Signed Patient: Evelin Patterson MR#: [id number] : 1955 Acct:[id number] Age/Sex: 66 / M Adm Date: 2 Loc: 3T Room: [address] [place] [address] Type: ADM IN Attending Dr: Renato Looney [...] kidney disease stage III. Patient presented to [facility] with feeling weak and disoriented for 2 weeks which has gotten worse. Patient has been having cough with decreased appetite and loss of taste for a week. Lab at [facility] shows acute kidney injury with creatinine up to 4.3 mg/dL along with hyperglycemia with initial blood glucose level more than 400. Patient's blood pressure was in the 80s at [facility]. Patient was given IV fluid and [...] Type: None Social History Comments: [facility] Medications & Allergies Allergies metformin Adverse [...] 500 Mg Tablet) 500 mg PO DAILY [facility] Stop: 03/14/23 08:59 Last Admin: 03/14/22 08:34 Dose: 500 mg Dexamethasone 2 mg/ (Dexamethasone 4 mg) 6 mg PO DAILY [facility] Stop: 03/22/23 08:59 Last Admin: 03/14/22 [...] 5,000 Unit/Ml Vial) 5,000 unit SUBCUT Q12HR [facility] Stop: 03/14/23 08:59 Last Admin: 03/14/22 08:39 Dose: 5,000 unit Sodium Chloride (0.9% Sodium Chloride 1,000 Ml) 1,000 mls @ 100 mls/hr IV .[id number] Stop: 03/14/23 01:59 Last Admin: 03/14/22 03:26 Dose: 100 mls/hr Insulin Aspart (Insulin Aspart 300 Units/3 Ml Insuln.Pen) 0 units SUBCUT TID.[facility]; Protocol Stop: 03/14/23 07:59 Last Admin: 03/14/22 12:06 Dose: Not Given Insulin Detemir (Insulin Detemir 300 Units/3 Ml Insuln.Pen) 35 units SUBCUT DAILY.WITH.BKFAST [facility] Stop: 03/14/23 07:59 Last Admin: 03/14/22 [...] Michael Tinajero M.D.03/14/2022 8:24 AM Dictation Location: [place] [address] Any impression(s) listed above is documentation that [...] question Documented By: Sarah Osuna MD 03/14/22 1213 Signed By: <Electronically signed by Sarah Osuna MD> 03/14/22 1395 [facility] Work Phone: 1(279) 311-655708-04-2022 History and physical note Author Mary Jane Riley [facility] March 14, 2022 6:40am Note Date/Time March 14, 2022 2:0 2am [facility] [address] [place] [address] Hospitalist H&P Signed Patient: Evelin Patterson MR#: [id number] : 1955 Acct:[id number] Age/Sex: 66 / M Adm Date: 2 Loc: Room: [address] [place] [address] Type: ADM IN Attending Dr: Mary Jane [...] who was transferred from [facility] for acute kidney injury. Patient presented with generalized weakness and disorientation at [facility]. He was noted to have blood [...] No fevers Paperwork from [facility] reviewed, chest x-ray with no acute cardiopulmonary process. Sodium 129. Potassium 3.3. Creatinine 2.52. WBC 6.8. Hemoglobin 12.5. Glucose 4.34. Patient will be admitted by the hospitalist team for further evaluation and management. Review of Systems Review of Systems Review of systems: 10 point review of systems obtained, negative unless noted in the HPI or below [facility] Medical History Abdominal mass Anxiety Arthritis Back pain Cirrhosis Colonoscopy planned Deviated nasal septum Diabetes mellitus, type 2 Eczema History of left heart catheterization Pneumonia Surgical History History of cholecystectomy History of hydrocelectomy History of lithotripsy History of nasal surgery Family History Mother Cancer Social History Smoking Status: Never smoker Substance Use Type: None Social History Comments: Lives in [facility] in [facility] Medications and Allergies Allergies metformin Adverse [...] oral intake. Presented at [facility] with low blood pressures in the 80s. ?Creatinine at [facility] 4.34. Baseline creatinine ~1.4 ?Urine sodium, creatinine, urea pending ? Urine output monitoring ? Start IV fluids ? Hold home lisinopril and renally adjust medications ?Consider renal ultrasound if no improvement ? Nephrology consult ?Monitor BMP COVID-19 positive -unvaccinated. ? Presented with productive cough, hypoxia, loss of taste and generalized weakness ? Afebrile, no leukocytosis ? Chest x-ray from [facility] did not show any acute cardiopulmonary [...] plan of care and confirmed the resident's/international account manager/medical student's dictation/written note. Patient is a 66-year-old [...] by Mary Jane Hanna MD> 03/14/22 0640 [facility] Work Phone: [phone]) 300-505504-19-2022 Progress note Author Lupe Hernandez [facility] April 09, 2022 3:32pm Note Date/Time April 09, 2022 1: 08pm [facility] [address] [place] [address] Hospitalist Progress Note Signed with Addenda Patient: Evelin Patterson MR#: [id number] : 1955 Acct:[id number] Age/Sex: 66 / M Adm Date: 2 Loc: Room: [address] [place] [address] Type: DIS INOo Attending Dr: Lupe Hernandez MD Copies to: ~ ADDENDUM1 Patient was personally seen by me on the day of encounter, reviewed his history and performed long elements of exam and formulated the plan of care and confirmedthe residents note below. Unfortunately patient has been denied by insurance for snf facility after peer to peer. He will [...] By: <Electronically signed by Lupe Hernandez MD> 04/09/22 153 Date of Service: 04/09/2022 Subjective Subjective Narrative: Reassessment on a 66-year-old male with past medical history of obstructive sleep apnea, hypothyroidism, failure to thrive, paroxysmal A. fib, CKD 3, fdq-qosluwn-maxbjbxng diabetes, CHF is being monitored on the floor while a mwit-sm-wqof was had with regards to the patient's discharge to a snf facility. Insurance company has denied this coverage [...] agreed the patient would do well at snf facility. Documented By: Allen Perez DO, RES 2 1302 Signed By: <Electronically signed by DO TAMMIE Perez> 04/09/22 1308 <Electronically signed by Lupe Hernandez MD> 04/09/22 1531 [facility] Work Phone: Discharge summary Author Luke Moran [facility] April 07, 2022 4:16pm Note Date/Time April 05, 2022 10 :05am [facility] [address] [place] [address] Discharge Summary Signed with Addenda Patient: Evelin Patterson MR#: [id number] : 1955 Acct:[id number] Age/Sex: 66 / M Adm Date: 2 Loc: Room: [address] [place] [address]: Luke Moran MD Copies to: [...] discharged home in stable condition to a snf facility. Medical therapy was adjusted as noted [...] 10:24: POC Glucose 271 04/03/22 07:34: Free Lamoure LC, Quant 93.9 H, Free Lambda LC, Quant 61.6 H, Free [place]re/Lambda Ratio 1.52 Exam Physical Exam Vital Signs: Temp Pulse Resp BP Pulse Ox O2 Del Method O2 Flow Rate 97.9 F 85 20 134/76 90 L Room Air 2 04/05/22 08:00 04/05/22 08:00 04/05/22 08:00 04/05/22 08:00 04/05/22 08:00 04/05/22 08:00 04/05/22 08:00 FiO2 30 04/04/22 22:34 Discharge Plan Discharge Plan Patient Disposition: [facility] Activity: Ambulate as Tolerated Diet: Diabetic and Low-Sodium Additional Instructions: Please have company providing CPAP machine fit the patient with a mask that he can tolerate. Use a CPAP of 8 whenever asleep until the sleep study performed. Penitentiary Facility to manage care: - Full code [...] Instructions: Sliding Scale ACHS Other Ambulatory Orders: [employer] polysom procedure (Routine) Timeframe: 3 Weeks Location: Determined by Patient Ordered By: Luke Moran Follow Up: [facility] [Outside] ([facility] Sleep Lab or Central Scheduling will call you to arrange date/time for sleep study. ) Documented By: Luke Moran MD 04/07/22 0929 Signed By: <Electronically signed by Luke Moran MD> 04/07/22 1610 [facility] Work Phone: Evaluation + Plan note No data available for this section [facility] Evaluation note* Diagnosis Onset Date Resolution Status FRANC (acute kidney injury) [place] Chronic kidney disease, stage III (moderate) acute COVID acute Diabetes acute Hyperglycemia acute Hypertension acute Hyponatremia acute Abrasion of elbow acute CHF (congestive heart failure) acute Diabetes mellitus, type 2 [facility] [place] Failure to thrive acute Fall acute Hypergammaglobulinemia acute Hypothyroidism acute Hypoxemia acute Morbid obesity due to excess calories acute Obstructive sleep apnea acut e Unable to care for self acut e [facility] Work Phone: Evaluation note* Diagnosis Hypotension, unspecified hypotension type- Primary Fall, initial encounter Refusal of treatment Surgical or other procedure not carried out because of patient's decision documented in this encounter [facility] Work Phone: Evaluation note* Diagnosis Primary osteoarthritis of both knees- Primary Seasonal allergic rhinitis due to pollen Dermatophytosis of nail- Primary Dystrophic nail Other specified disease of nail Diabetic polyneuropathy associated with type 2 diabetes mellitus (CMS/HCC) Type II diabetes mellitus with peripheral circulatory disorder (CMS/HCC) Type II or unspecified type diabetes mellitus with peripheral circulatory disorders, not stated as uncontrolled Encounter for long-term (current) use of insulin ([facility]) Encounter for long-term (current) use of insulin documented in this encounter [facility] HealthcareEvaluation note* Diagnosis Primary osteoarthritis of both knees- Primary Seasonal allergic rhinitis due to pollen Diabetic polyneuropathy associated with type 2 diabetes mellitus (HCC)- Primary Type II diabetes mellitus with peripheral circulatory disorder (HCC) Type II or unspecified type diabetes mellitus with peripheral circulatory disorders, not stated as uncontrolled Encounter for long-term (current) use of insulin ([facility]) Encounter for long-term (current) use of insulin documented in this encounter [facility] HealthcareEvaluation note* Diagnosis Primary osteoarthritis of both knees- Primary Seasonal allergic rhinitis due to pollen Age-related nuclear cataract of both eyes- Primary 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 (HCC) 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 associated with type 2 diabetes mellitus (HCC) documented in this encounter [facility] HealthcareEvaluation note* Diagnosis Primary osteoarthritis of both knees- Primary Seasonal allergic rhinitis due to pollen Diabetic polyneuropathy associated with type 2 diabetes mellitus (HCC)- Primary Type II diabetes mellitus with peripheral circulatory disorder (HCC) Type II or unspecified type diabetes mellitus with peripheral circulatory disorders, not stated as uncontrolled Encounter for long-term (current) use of insulin ([facility]) Encounter for long-term (current) use of insulin documented in this encounter [facility]* Diagnosis Primary osteoarthritis of both knees- Primary Seasonal allergic rhinitis due to pollen 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 HOME HEALTH TO MANAGE: Nursing/PT/OT/Aide/Propellant Charge Loader to eval and treat Monitor VS per protocol Maintain home oxygen at 2l continuous *Oxygen therapy is new, educate patient on Monitor Respiratory assessment Assist with medication management and provide medication education Assist with glucose control Skin care TID: *Theraworx protect to bilateral groin and abdominal fold redness. *Educate patient on Provide education on high risk fall precautions [facility] Work Phone: Hospital Discharge instructions Additional Instructions If your symptoms return/worsen or you develop any further concerns or symptoms please see your doctor or return to the emergency department immediately.[facility] Work Phone: Progress note No data available for this section [facility] Progress note Author Sarah Osuna [facility] March 16, 2022 12:40pm Note Date/Time March 16, 2022 12: 36pm [facility] [address] [place] [address] Nephrology Progress Note Signed Patient: Evelin Patterson MR#: [id number] : 1955 Acct:[id number] Age/Sex: 66 / M Adm Date: 2 Loc: Room: [address] [place] [address] Type: ADM IN Attending Dr: Xin Phan MD Copies to: ~ Date of Service: 03/16/2022 Subjective Subjective Narrative: This is 66-year-old male patient with a past medical history of morbid obesity, endocarditis, paroxysmal A. fib, diabetes type 2, anxiety and depression and chronic kidney disease stage III. Patient presented to [facility] with feeling weak and disoriented for 2 weeks which has gotten worse. Patient has been having cough with decreased appetite and loss of taste for a week. Lab at [facility] shows acute kidney injury with creatinine up to 4.3 mg/dL along with hyperglycemia with initial blood glucose level more than 400. Patient's blood pressure was in the 80s at [facility]. Patient was given IV fluid and [...] Intake and Output I&O: Intake & Output 08/10/3003/14/22 03/15/22 03/16/22 23:59 23:59 23:59 23:59 Intake [...] 5 Mg Tablet) 5 mg PO DAILY [facility] Stop: 03/15/23 15:59 Last Admin: 03/16/22 08:08 Dose: 5 mg Ascorbic Acid (Ascorbic Acid 500 Mg Tablet) 500 mg PO DAILY [facility] Stop: 03/14/23 08:59 Last Admin: 03/16/22 08:08 Dose: 500 mg Dexamethasone 2 mg/ (Dexamethasone 4 mg) 6 mg PO DAILY [facility] Stop: 03/22/23 08:59 Last Admin: 03/16/22 [...] 5,000 Unit/Ml Vial) 5,000 unit SUBCUT Q12HR [facility] Stop: 03/14/23 08:59 Last Admin: 03/16/22 08:09 Dose: Not Given Insulin Aspart (Insulin Aspart 300 Units/3 Ml Insuln.Pen) 0 units SUBCUT TID.[facility]; Protocol Stop: 03/14/23 07:59 Last Admin: 03/16/22 11:57 Dose: 8 units Insulin Detemir (Insulin Detemir 300 Units/3 Ml Insuln.Pen) 40 units SUBCUT DAILY.WITH.BKFAST JOSIANE Stop: 03/16/23 07:59 Last Admin: 03/16/22 08:10 Dose: 40 units Zinc Sulfate (Zinc Sulfate 220 Mg Capsule) 220 mg PO DAILY [facility] Stop: 03/14/23 08:59 Last Admin: 03/16/22 [...] signed by Sarah Osuna MD> 03/16/22 1240 [facility] Work Phone: Progress note Author Luke Moran [facility] April 03, 2022 2:05pm Note Date/Time April 03, 2022 2: 05pm [facility] [address] [place] [address] Hospitalist Progress Note Signed Patient: Evelin Patterson MR#: [id number] : 1955 Acct:[id number] Age/Sex: 66 / M Adm Date: 2 Loc: Room: [address] [place] [address] Type: ADM INOo Attending Dr: Luke Moran [...] signed by Luke Moran MD> 04/03/22 1402 [facility] Work Phone: Progress note Author Luke Moran [facility] April 04, 2022 4:25pm Note Date/Time April 04, 2022 4: 25pm [facility] [address] [place] [address] Hospitalist Progress Note Signed Patient: Evelin Patterson MR#: [id number] : 1955 Acct:[id number] Age/Sex: 66 / M Adm Date: 2 Loc: Room: [address] [place] [address] Type: ADM INOo Attending Dr: Luke Moran [...] <Electronically signed by Luke Moran MD> 04/04/221624 [facility] Work Phone: Progress note Author Luke Moran [facility] April 06, 2022 2:50pm Note Date/Time April 06, 2022 2: 50pm [facility] [address] [place] [address] Hospitalist Progress Note Signed Patient: Evelin Patterson MR#: [id number] : 1955 Acct:[id number] Age/Sex: 66 / M Adm Date: 2 Loc: 3T Room: [address] [place] [address] Type: ADM INOo Attending Dr: Luke Moran [...] signed by Luke Moran MD> 04/06/22 1450 [facility] Work Phone: Progress note Author Lupe Hernandez [facility] April 08, 2022 1:38pm Note Date/Time April 08, 2022 1: 38pm [facility] [address] [place] [address] Hospitalist Progress Note Signed Patient: Evelin Patterson MR#: [id number] : 1955 Acct:[id number] Age/Sex: 66 / M Adm Date: 2 Loc: Room: [address] [place] [address] Type: ADM INOo Attending Dr: Lupe Hernandez [...] Hypothyroidism: Plan Patient currently awaiting placement to snf facility. Remains in normal sinus rhythm. He [...] signed by Lupe Hernandez MD> 04/08/22 1338 [facility] Work Phone: Reason for referral (narrative)No reason for referral information availableC[facility] Work Phone: Chief Complaint and [...] Unable to care for self Chief Complaint Admit Date S22.070D M43.16 November 16, 2024 10:4 6am Chief Complaint Admit Date S22.070D M43.16 November 16, 2024 10:4 6am S22.070D M43.16 December 17, 2024 1:26pm Chief Complaint Admit Date S22.070D M43.16 December 17, 2024 1:26pm S22.070D M43.16 December 27, 2024 10:00 am Chief Complaint Admit Date S22.070D M43.16 December 17, 2024 1:26pm S22.070D M43.16 December 27, 2024 10:00 am S22.070D M51.372 M43.16 February 25, 2025 11:10am Advance Directives No Advanced Directives Records Found Advance Directive Response Recorded Date/ Time Advance Directives No September 05, 2020 8:27am Summary Purpose Family History Relationship Condition Age at Onset Recorded Date/T christian mother Unknown Hypertension Unknown Malignant neoplasm of lung Unknown brother Acquired immunodeficiency syndrome Unknow n Relationship Condition Age at Onset Recorded Date/T christian mother Malignant neoplasm Unknown mother Unknown Hypertension Unknown No Family History Records Found Additional Source [...] MD Primary Care Provider Active Team Status: Active Member Role Status Dates [place]A [place] Primary Care Provider Active Team Status: Inactive Member Role Status Dates Margot Singh MD Attending Provider Active Start: November 16, 2024 End: November 16, 2024 ISA [place] Primary Care Provider Active Start: November 16, 2024 End: November 16, 2024 Team Status: Inactive Member Role Status Dates [place]A [place] Primary Care Provider Active Start: December 17, 2024 End: December 17, 2024 Lottie Washington PA-C Attending Provider Active Start: December 17, 2024 End: December 17, 2024 Box Coverer Hand Relationship Specialty Start Date End Date Unallocated, [place] MD Francisco [address] [place] [address] PCP - General Family Medicine 10/11/24 Box Coverer Hand Relationship Specialty Start Date End Date Ezio Amado MD [address] [place], [place] [phone] PCP - General Family Medicine 01/19/25 Arline Rouse MD [address] [place], [place] [phone] Nurse Practitioner Family Medicine 01/19/25 Box Coverer Hand Relationship Specialty Start Date End Date Ezio Amado MD [address] [place], [place] [phone] PCP - General Family Medicine 01/19/25 Arline Rouse MD [address] [place] [phone] Nurse Practitioner Family Medicine 01/19/25 Box Coverer Hand Relationship Specialty Start Date End Date Ezio Amado MD [address] [place] [phone] PCP - General Family Medicine 01/19/25 Arline Rouse MD [address] [place] [phone] Nurse Practitioner Family Medicine 01/19/25 Team Status: Inactive Member Role Status Dates Arline Rouse NP-C Primary Care Provider Active Start: December 27, 2024 End: December 27, 2024 Lottie Washington PA-C Attending Provider Active Start: December 27, 2024 End: December 27, 2024 Team Status: Inactive Member Role Status Dates Arline Rouse NP-Nico Primary Care Provider Active Start: February 25, 2025 End: February 25, 2025 Margot Singh MD Attending Provider Active Start: February 25, 2025 End: February 25, 2025 Box Coverer Hand Relationship Specialty Start Date End Date Ezio Amado MD [address] [place] [phone] PCP - General Family Medicine 01/19/25 Arline Rouse MD [address] [place] [phone] Nurse Practitioner Family Medicine 01/19/25 Box Coverer Hand Relationship Specialty Start Date End Date Ezio Amado MD [address] [place] [phone] PCP - General Family Medicine 01/19/25 Arline Rouse MD [address] [place] [phone] Nurse Practitioner Family Medicine 01/19/25 Box Coverer Hand Relationship Specialty Start Date End Date Ezio Amado MD [address] [place] [phone] PCP - General Family Medicine 01/19/25 Arline Rouse MD [address] [place] [phone] Nurse Practitioner Family Medicine 01/19/25 Box Coverer Hand Relationship Specialty Start Date End Date Ezio Amado MD [address] [place] [phone] PCP - General Family Medicine 01/19/25 Arline Rouse MD [address] [place] [phone] Nurse Practitioner Family Medicine 01/19/25 Box Coverer Hand Relationship Specialty Start Date End Date Ezio Amado MD [address] [place] [phone] PCP - General Family Medicine 01/19/25 Arline Rouse MD [address] [place] [phone] Nurse Practitioner Family Medicine 01/19/25 (unrecognized sect ion and content) No Status Records FoundNo Status Records FoundNo Status Records FoundNo Status Records FoundNo Status Records FoundNo Status Records Found INFORMATION SOURCE (unrecogn ized section and content) DATE CREATED AUTHOR 05/08/2022 [employer] DATE CREATED AUTHOR AUTHOR'S ORGANIZ ATION [facility]/23/2022 [facility] DATE CREATED AUTHOR AUTHOR'S ORGANIZ ATION 06/15/2024 [facility] DATE CREATED AUTHOR AUTHOR'S ORGANIZ ATION 01/07/2025 [facility] DATE CREATED AUTHOR AUTHOR'S ORGANIZ ATION 03/10/2025 [facility] DATE CREATED AUTHOR AUTHOR'S ORGANIZ ATION 03/25/2025 [facility]IC Reason for Visit (unrecogniz ed section and content) Reason Comments Fall Reason Comments Diabetic Shoes Pt is here today req uesting to start the diabetic shoe process. Reason Comments Diabetic Shoes Established patient presents today to be measured for diabetic shoes. Reason Comments Cataract Reason Comments Diabetic Shoes Established patient presents today for diabetic shoe pickup. 1 pair of Comfort shoes and 3 pair of heat molded inserts were dispensed. Patient wishes to wear shoes out today, patient understands that he cannot return or exchange shoes once worn outside. Reason Comments Retinal Injection Goals (unrecognized section and content) Goals may [...] BE BASED ON THE PRIMARY CLINICAL RECORDS. [employer] provides no warranty or guarantee of the accuracy or completeness of information in this document.
[2025-03-25 14:27] LABS: Hematocrit 30.5 % (42.0-54.0); Hemoglobin 9.6 g/dL (14.0-18.0); Immature Granulocytes Abs Auto 0.01 10^3/uL (0.00-0.03); Immature Granulocytes Pct Auto 0.2 % (0.0-0.5); Lymphocytes Absolute Auto 1.5 10^3/uL (1.2-3.8); Mean Corpuscular HGB Conc 31.5 g/dL (29.9-35.2); Mean Corpuscular Hemoglobin 27.1 pg (25.9-34.0); Mean Corpuscular Volume 86.2 fL (80.0-94.0); Platelet Count 203 10^3/uL (150-450); Red Blood Count 3.54 10^6/uL (4.70-6.10); White Blood Count 6.7 10^3/uL (4.0-11.0)
[2025-03-25 14:47] LABS: Glucose Urine UA 250 mg/dL (NEGATIVE)
[2025-03-25 15:30] LABS: Cast Seen? NONE SEEN #/LPF (NONE SEEN); Crystals Seen? None Seen #/HPF (None Seen); Urine Culture Indicated NO
[2025-03-25 17:31] LABS: Alanine Aminotransferase 31 U/L (16-63); Albumin Globulin Ratio 0.5; Albumin Level 2.6 g/dL (3.4-5.0); Alkaline Phosphatase 250 U/L (46-116); Anion Gap 10.0; Aspartate Amino Transferase 33 U/L (15-37); Blood Urea Nitrogen 18.0 mg/dL (7.0-18.0); Calcium 8.7 mg/dL (8.5-10.1); Carbon Dioxide 27.1 mmol/L (21.0-32.0); Chloride 103 mmol/L (98-107); Cholesterol 204 mg/dL (<=200); Estimated GFR (African America >60 (>=60 mL/min/1.73m^2); Estimated GFR (Non-African Ame 51 (>=60 mL/min/1.73m^2); Free T3 1.14 pg/mL (2.18-3.98); Globulin 5.5 g/dL; Glucose 233 mg/dL (74-106); HDL Cholesterol 36 mg/dL (40-60); Potassium 5.1 mmol/L (3.5-5.1); Sodium 135 mmol/L (136-145); Thyroid Stimulating Hormone 2.805 uIU/mL (0.358-3.740); Total Protein 8.1 g/dL (6.4-8.2); Triglycerides 211 mg/dL (<=150); VLDL CHOLESTEROL 42.2 mg/dL
[2025-03-26 08:09] LABS: Vitamin B12 364 pg/mL (232-1245)
== END 2025-03-25 13:47 | disposition home or self-care (01) ==
LOC: LAB 14:02
PROVIDERS: PCP Nurse Practitioner Family; Visit Provider Nurse Practitioner Family
DX: E78.5 Hyperlipidemia, unspecified (principal); R53.83 Other fatigue; E11.9 Type 2 diabetes mellitus without complications; E03.9 Hypothyroidism, unspecified; Z79.899 Other long term (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; Z12.5 Encounter for screening for malignant neoplasm of prostate; M25.50 Pain in unspecified joint; E53.9 Vitamin B deficiency, unspecified; R30.0 Dysuria
CPT/HCPCS: 36415; 80053; 80061; 81001; 82607; 83036; 83525; 84436; 84443; 84481; 85025; 86140; 87086; G0103

== ENCOUNTER 2025-03-28 16:31 | Outpatient (OUT) | payer MEDICARE, MEDICAID, SELFPAY ==
[2025-03-28 17:32] LABS: Iron 44.0 ug/dL (65.0-175.0)
--- OUTSIDE RECORDS SUMMARY | 2025-03-28 17:40 | XMS_ITS | CCD ---
Author Organization [facility] Care Team Providers Care Yarn Twister Name Role Phone JEFF CARLOS Primary Care Physician [phone] MD Ayden Freeman Primary Care Provider Al MD Mary Jane Campebll Admit Provider MD Sarah Osuna Other Provider MD Xin Phan Attending Provider DO Jair Gabriel Emergency Provider MD Luke Moran Admit Provider MD Lupe Hernandez Attending Provider [phone] DO Ramesh Byrd Emergency Provider [phone] PROVIDER, UNKNOWN Admitting Unavailable PROVIDER, UNKNOWN Attending [...] TENZIN ., DR PORSHA Winn Admitting Unavailable ZIALFREDO, DR CAROL Huffman Consulting Unavailable LYDIA, DR [...] LYDIA, DR AYDEN Haney Primary Care Unavailable NADERER, [...] Unavailable MATTHEW, DR MASON Huffman Admitting Unavailable NADERER, DR AYDEN Haney Primary Care Unavailable AHDOOT, JENNIFER Consulting Unavailable BROWN, ROSELIA Consulting Unavailable PEDRAZA, GIN Consulting Unavailable CHIKIS ., HINA Consulting Unavailable NADERER, DR AYDEN Haney Primary Care Unavailable CHIKIS ., HINA Attending Unavailable CHIKIS ., HINA Admitting Unavailable NADERER, DR AYDEN Haney Primary Care Unavailable CHIKIS ., HINA Attending Unavailable CHIKIS ., HINA Admitting Unavailable Margot Singh MD Attending Provider Nasim M[employer] FARM HAND-CArline Primary Care Provider [phone] Zortman JUANCLottie Attending Provider ELTAHAWY, EHAB Attending Unavailable ELTAHAWY, EHAB Admitting Unavailable ELTAHAWY, EHAB Attending Unavailable ELTAHAWY, EHAB Referring Unavailable Unallocated , Saidas Provider Primary Care [facility] Arline Rouse MD Unavailable Ezio Amado MD Primary Care Provider [phone] Nasim [employer] HAND-CArline Primary Care Provider [phone] Margot Singh MD Attending Provider [phone] CAROL BURNS Attending Unavailable CAROL BURNS Attending Unavailable SYLVIA LUI Attending Unavailable JIMENA SY Referring Unavailable CAROL BURNS Attending Unavailable SYLVIA LUI Attending Unavailable Nasim RONQUILLO-C, Arline Almazan Primary Care Provider [phone] Lottie [place] PA-C Attending Provider [phone] Arline Pisano Attending Provider [phone] Lottie [place] Admitting Unavailju shelton Lottie [place] Attending Arline Villatoro Primary Care Unavailable Samantha, Selvon F Admitting Unavailable Samantha, Selvon F Attending Unavailable Arline Rouse Primary Care Unavailable Samantha, Selvon F Admitting Unavailable Samantha, Selvon F Attending Unavailable Arline Rouse Primary Care Unavailable Lottie [place] Admitting Unavailju shelton Lottie [place] Attending UnavailArline Ramos Primary Care Unavailable Arline Rouse Admitting Unavailable Arline Rouse Attending Unavailable Allergies Allergy Classification Reported Allergen(s) Allergy Type Date of Onset Reaction(s) Facility (20 sources) metFORMIN; Translations: [metformin] Drug Allergy 2 Unknown [facility] (20 sources) Prochlorperazine; Translations: [PROCHLORPERAZINE] Drug Allergy 2 Anxiety, Other [facility] (2 sources) Prochlorperazine Drug Allergy [facility] (13 sources) pioglitazone Drug Allergy 4 [facility] Medications Current Medications Medication Drug Class(es) Dates Sig (Normalized) Sig (Original) acetaminophen 500 mg oral tablet (10 sources) Start: 04-04-2022 take 2 tablets by mouth every six hours as needed for pain Start: 04-04-2022 take 1000 mg by mout [...] PO Q6H 0 April 04, 2022 12:00am [id number] 200 actuat albuterol 0.09 mg/actuat metered dose inhaler (10 sources) beta2-Adrenergic Agonist Start: 03-14-2022 take 1 puff(s) by inhalation every four hours as needed apixaban 5 mg oral tablet (16 sources) Factor Xa Inhibitor Start: 12-17-2024 take 1 tablet by mouth twice daily atorvastatin 40 mg oral tablet (20 sources) HMG-CoA Reductase Inhibitor Start: 07-27-2020 take 1 tablet by mouth once daily at bedtime carvedilol 3.125 mg oral tablet (12 sources) alpha-Adrenergic Eva, beta-Adrenergic Eva carvedilol (Coreg) 3.125 MG tablet Oral for 90 Days Active diclofenac sodium 75 mg delayed release oral tablet (4 sources) Nonsteroidal Anti-inflammatory Drug Start: 12-17-2024 take 2 tablets by mouth once daily at bedtime diphenhydrAMINE hydrochloride 25 mg oral capsule (16 sources) Histamine-1 Receptor Antagonist Start: 12-21-2024 take 1-2 capsules by mouth four times daily Banophen 25 MG capsule TAKE 1 - 2 CAPSULES BY MOUTH 4 TIMES A DAY FOR ITCHING 12/21/2024 Active Start: 12-17-2024 esomeprazole 40 mg delayed release oral capsule (20 sources) Proton Pump Inhibitor Start: 12-10-2023 take 1 capsule by mouth once daily at bedtime Start: 03-14-2022 End: 04-02-2022 take 1 capsule by mouth once daily Esomeprazole Magnesium 40 mg capsule,delayed release(DR/EC) Discontinued 40 MG PO Daily March 14, 2022 12:00am April 02, 2022 6:07pm fluticasone propionate 0.05 mg/actuat metered dose nasal spray (17 sources) Corticosteroid Start: 12-27-2024 fluticasone (F lonase) 50 MCG/ACT nasal spray Indications: Seasonal allergic rhinitis due to pollen USE 2 SPRAYS IN EACH NOSTRIL IN MORNING.SHAKE GENTLY.BEFORE FIRST USE,PRIME PUMP.AFTER USE,CLEAN TIP AND REPLACE CAP. 16 mL 1 12/27/2024 Active Start: 12-17-2024 gabapentin 100 mg oral capsule (20 sources) Anti-epileptic Agent Start: 12-17-2024 take 2 capsules by mouth once daily at bedtime Start: 12-08-2023 take 1 capsule by mo ut in the morning gabapentin (Neurontin) 100 [...] ml insulin glargine 100 unt/ml pen injector (17 sources) Insulin Analog Start: 12-19-2023 24 hr isosorbide mononitrate 30 mg extended release oral tablet (20 sources) Nitrate Vasodilator Start: 03-14-2022 End: 01-19-2026 take 1 tablet by mouth once daily at bedtime, then take 1 tablet by mouth every twenty-four hours levothyroxine sodium 0.2 mg oral tablet (20 sources) l-Thyroxine Start: 12-17-2024 take 1 tablet by mouth once daily at bedtime Start: 04-09-2022 End: 12-17-2024 Levothyroxine (Synthroid) 20 0 mcg Tablet Discontinued 250 MCG PO Daily April 09, 2022 12:00am December 17, 2024 2:27pm Start: 04-09-2022 Levothyroxine (Synthroid) [...] tablet by mouth once daily at bedtime Start: 03-14-2022 End: 12-17-2024 take 1 tablet by mouth once daily Lisinopril 40 mg tablet Discontinued 40 MG PO Daily March 14, 2022 12:00am December 17, 2024 2:18pm Start: 07-20-2020 End: 08-07-2020 Lisinopril 2.5 mg Tablet Discontinued 20 MG PO Twice daily July 20, 2020 1:00am August 07, 2020 3:01pm Start: 07-20-2020 End: 08-07-2020 take 20 mg by mouth twice daily Lisinopril Discontinue d 20 MG PO Twice daily July 20, 2020 1:00am August 07, 2020 3:01pm 24 hr metoprolol succinate 25 mg extended release oral tablet (4 sources) beta-Adrenergic Eva Start: 12-17-2024 take 1 tablet by mouth once daily in the morning nystatin [id number] unt/ml topical cream (20 sources) Polyene Antifungal Start: 12-09-2023 nystatin (Mycostatin) cream Indications: Skin candidiasis Apply topically 2 (two) times a day 30 g 3 12/09/2023 Active Start: 03-14-2022 End: 04-09-2022 Nystatin 100,000 unit/mL suzette pension Discontinued March 14, 2022 12:00am March 14, 2022 2:54am rOPINIRole 0.5 mg oral tablet (20 sources) Nonergot Dopamine Agonist Start: 12-10-2023 take 1 tablet by mouth once daily at bedtime Start: 03-14-2022 End: 12-17-2024 take 0.5 mg [...] tablet by mouth once daily at bedtime Completed/Discontinued Medications Medication Drug Class(es) Dates Sig (Normalized) Sig (Original) acetaminophen 300 mg / codeine phosphate 30 mg oral tablet (10 sources) Opioid Agonist Start: 04-02-2022 End: 04-09-2022 take 1 tablet by mouth every six hours as needed for pain Acetaminophen-Code ine 300-30 mg tablet Discontinued 1 TAB PO Q6H as needed for Pain April 02, 2022 12:00am April 09, 2022 12:27pm acetaminophen 325 mg / HYDROcodone bitartrate 5 mg oral tablet (10 sources) Opioid Agonist Start: 07-27-2020 End: 08-10-2020 take 1 tablet by mouth four times daily as needed for pain Hydrocodone-Acetam inophen ([place]) 5-325 mg Tablet Discontinued 1 TAB PO Four times daily as needed for Pain July 27, 2020 1:00am August 10, 2020 4:49pm aspirin 81 mg chewable tablet (4 sources) Platelet Aggregation Inhibitor, Nonsteroidal Anti-inflammatory Drug Start: 12-17-2024 End: 02-25-2025 take 1 tablet by mouth once daily in the morning Aspirin 81 mg tablet,chewable Discontinued 81 MG PO Every morning December 17, 2024 12:00am February 25, 2025 11:40am baclofen 10 mg oral tablet (10 sources) gamma-Aminobutyric Acid-ergic Agonist Start: 07-26-2020 End: [...] 1 dose ceFAZolin 200 mg/ml injectable solution (10 sources) Cephalosporin Antibacterial Start: 08-01-2020 End: 08-10-2020 [...] 2020 3:06pm celecoxib 200 mg oral capsule (20 sources) Nonsteroidal Anti-inflammatory Drug Start: 08-07-2020 End: [...] 2020 2:52pm clotrimazole 10 mg/ml topical cream (14 sources) Azole Antifungal Start: 12-17-2024 End: 02-25-2025 Clotrimazole 1 % cream Discontinued 1 APPLIC TOPICAL Twice daily as needed for rash December 17, 2024 12:00am February 25, 2025 11:40am Start: 03-14-2022 End: 04-09-2022 Clotrimazole 1 % cream Disco ntinued 1 APPLIC TOPICAL Daily as needed for Dry Skin March 14, 2022 12:00am April 09, 2022 12:27pm colchicine 0.6 mg oral capsule (10 sources) Start: 07-20-2020 End: 07-20-2020 take 1 capsule by mouth twice daily Colchicine 0.6 mg Capsule Discontinued 0.6 MG PO Twice daily July 20, 2020 1:00am July 20, 2020 6:15pm dexamethasone 6 mg oral tablet (10 sources) Corticosteroid Start: 03-16-2022 End: 04-02-2022 take [...] 2:54am hydrOXYzine hydrochloride 25 mg oral tablet (10 sources) Antihistamine Start: 03-14-2022 End: 04-09-2022 take 1 tablet by mouth once daily at bedtime as needed for anxiety Hydroxyzine Hcl 25 mg tablet Discontinued 25 MG PO Daily at bedtime as needed for Anxiety March 14, 2022 12:00am April 09, 2022 12:27pm 3 ml insulin aspart, human 100 unt/ml pen injector (6 sources) Insulin Analog Start: 04-05-2022 End: 02-25-2025 inject 1 dose by subcutaneous injection at bedtime Insulin Aspart U-100 (Novolog Flexpen U-100 Insulin) 100 unit/mL (3 mL) Insulin Pen Discontinued 1 sliding scale dose SUBCUT Before meals and at bedtime December 17, 2024 12:00am February 25, 2025 11:41am 3 ml insulin detemir 100 unt/ml pen injector (10 sources) Insulin Analog Start: 03-16-2022 End: 12-17-2024 Insulin Detemir U-100 (Levemir Flextouch U100 Insulin) 100 unit/mL (3 mL) Insulin Pen Discontinued 40 UNIT SUBCUT Daily with breakfast 08 09March 16, 2022 12:00am December 17, 2024 2:13pm 3 ml insulin lispro 100 unt/ml pen injector (10 sources) Insulin Analog Start: 03-16-2022 End: 04-09-2022 [...] 3 ml liraglutide 6 mg/ml pen injector (10 sources) GLP-1 Receptor Agonist Start: 04-04-2022 End: [...] daily thereafter pioglitazone 30 mg oral tablet (10 sources) Peroxisome Proliferator Receptor alpha Agonist, Peroxisome Proliferator Receptor gamma Agonist, Thiazolidinedione Start: 03-14-2022 End: 04-09-2022 take 1 tablet by mouth once daily Pioglitazone 30 mg tablet Discontinued 30 MG PO Daily March 14, 2022 12:00am April 09, 2022 12:27pm predniSONE 10 mg oral tablet (10 sources) Start: 03-14-2022 End: 03-16-2022 take 2 tablets by mouth once daily Prednisone 10 mg tablet Discontinued 20 MG PO Daily March 14, 2022 12:00am March 16, 2022 9:32am Start: 03-14-2022 End: 03-16-2022 take 20 mg by mouth once daily Prednisone Discontinued 20 MG PO Daily March 14, 2022 12:00am March 16, 2022 9:32am traZODone hydrochloride 50 mg oral tablet (10 sources) Serotonin Reuptake Inhibitor Start: 03-14-2022 End: 04-02-2022 take 1 tablet by mouth once daily at bedtime Trazodone 50 mg Tablet Discontinued 50 MG PO Daily at bedtime March 14, 2022 12:00am April 02, 2022 6:08pm triamcinolone acetonide 1 mg/ml topical lotion (10 sources) Corticosteroid Start: 08-02-2020 End: 04-09-2022 Triamcinolone Acetonide 0.1 % Lotion Discontinued 1 APPLIC TOPICAL Twice daily 0 August 02, 2020 1:00am April 09, 2022 12:27pm zinc sulfate 220 mg oral capsule (10 sources) Start: 03-16-2022 End: 04-02-2022 Zinc Sulfate (Orazinc) 50 mg zinc (220 mg) Capsule Discontinued 220 MG PO Daily 31 7 March 16, 2022 12:00am April 02, 2022 6:08pm Problems Active Problems Problem Classification Problem Date Documented Da te Episodic/Chronic Acute and unspecified renal failure (14 sources) Injury of kidney; Translations: [Acute kidney failure, unspecified] 03-14-2022 Episodic Anxiety disorders (13 sources) Generalized anxiety disorder; Translations: [Generalized anxiety disorder] Onset: 09-16-2023 09-16-2023 Chronic Bacterial infection; unspecified site (10 sources) Bacteremia due to Staphylococcus aureus; Translations: [Bacteremia] 08-15-2020 Episodic Cardiac dysrhythmias (12 sources) Paroxysmal atrial fibrillation; Translations: [Paroxysmal atrial fibrillation] Onset: 10-28-2024 08-15-2020 Chronic Cataract (7 sources) Bilateral age-related nuclear cataracts; Translations: [Age-related nuclear cataract, bilateral] Onset: 03-08-2025 03-08-2025 Chronic Chronic kidney disease (15 sources) Chronic kidney disease stage 3; Translations: [Stage 3 chronic kidney disease] Onset: 05-20-2022 03-14-2022 Chronic Chronic kidney disease (1 source) Chronic kidney disease; Translations: [CHRONIC KIDNEY DISEASE STAGE 3A] Onset: 01-28-2022 Chronic obstructive pulmonary disease and bronchiectasis (13 sources) Chronic obstructive lung disease; Translations: [Chronic obstructive pulmonary disease, unspecified] Onset: 09-16-2023 09-16-2023 Chronic Congestive heart failure; nonhypertensive (14 sources) Congestive heart failure; Translations: [Heart failure, unspecified] 04-02-2022 Chronic Coronary atherosclerosis and other heart disease (18 sources) Atherosclerotic heart disease of [place] coronary artery without angina pectoris; Translations: [Unstable angina] Onset: 05-20-2022 Chronic Diabetes mellitus with complications (20 sources) Type 2 diabetes mellitus with hyperglycemia; Translations: [Type 2 diabetes mellitus with diabetic chronic kidney disease] Onset: 07-06-2018 Chronic Diabetes mellitus without complication (20 sources) Diabetes mellitus; Translations: [Type 2 diabetes mellitus without complications] Onset: 02-05-2022 03-14-2022 Chronic Diabetes mellitus without complication (14 sources) Hyperglycemia; Translations: [Hyperglycemia, unspecified] 03-14-2022 Episodic Diseases of white blood cells (10 sources) Leukocytosis; Translations: [Elevated white blood cell count, unspecified] 07-20-2020 Chronic Disorders of lipid metabolism (14 sources) Hyperlipidemia, unspecified; Translations: [Dyslipidemia] Onset: 12-22-2022 09-16-2023 Chronic E Codes: Fall (17 sources) Fall; Translations: [Unspecified fall, initial encounter] Onset: 01-21-2022 04-02-2022 Episodic Esophageal disorders (14 sources) Gastro-esophageal reflux disease without esophagitis; Translations: [Gastroesophageal reflux disease] Onset: 05-20-2022 09-16-2023 Chronic Essential hypertension (20 sources) Hypertensive disorder; Translations: [Essential (primary) hypertension] Onset: 12-22-2022 03-14-2022 Chronic Fever of unknown origin (10 sources) Fever; Translations: [Fever, unspecified] 07-20-2020 Episodic Fluid and electrolyte disorders (20 sources) Hyponatremia; Translations: [Hypo-osmolality and hyponatremia] 03-14-2022 Episodic Genitourinary symptoms and ill-defined conditions (9 sources) Blood in urine; Translations: [Hematuria, unspecified] 04-12-2022 Episodic Hypertension with complications and secondary hypertension (3 sources) Hypertensive chronic kidney disease with stage 1 through stage 4 chronic kidney disease, or unspecified chronic kidney disease; Translations: [Hypertensive heart disease with heart failure] Onset: 05-20-2022 Chronic Immunity disorders (14 sources) Hypergammaglobulinemi a; Translations: [Hypergammaglobulinem ia, unspecified] [...] 09-16-2023 Chronic Other aftercare (1 source) Other prison (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; Translations: [OTH RETIREMENT CURRENT DRUG THERAPY] Onset: 12-22-2022 Episodic Other aftercare (6 sources) Long-term current use of insulin; 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] 01-19-2025 Episodic Other [...] healing] Onset: 02-25-2025 Episodic Other gastrointestinal disorders (10 sources) Abdominal mass; Translations: [Intra-abdominal and pelvic swelling, mass and lump, unspecified site] 08-15-2020 Episodic Other hematologic conditions (10 sources) ESR raised; Translations: [Elevated erythrocyte sedimentation [...] 09-16-2023 09-16-2023 Chronic Other lower respiratory disease (10 sources) Hypoxemia; Translations: [Hypoxemia] 04-08-2022 Episodic Other lower respiratory disease (4 sources) Hypoxemia; Translations: [Hypoxemia] 04-09-2022 Episodic Other lower respiratory disease (3 sources) Shortness of breath; Translations: [SHORTNESS OF BREATH] Onset: 01-28-2022 Episodic Other nutritional; endocrine; and metabolic disorders (10 sources) Morbid obesity; Translations: [Morbid (severe) obesity due to excess calories] 08-15-2020 Chronic Other nutritional; endocrine; and metabolic disorders (10 sources) Hypomagnesemia; Translations: [Hypomagnesemia] 08-07-2020 Chronic Other [...] nutritional; endocrine; and metabolic disorders (5 sources) Failure to thrive 04-08-2022 Episodic Other screening for suspected conditions (not mental disorders or infectious disease) (10 sources) Raised TSH level; Translations: [Other specified abnormal findings of blood chemistry] Onset: 12-22-2022 04-12-2022 Episodic Other skin disorders (10 sources) Eruption; Translations: [Rash and other nonspecific skin eruption] 08-15-2020 Episodic Other skin disorders (2 sources) Dystrophia unguium; Translations: [Nail dystrophy] 01-19-2025 Episodic Other upper respiratory disease (13 sources) Allergic rhinitis due to pollen; Translations: [Allergic rhinitis due to pollen] Onset: 09-16-2023 09-16-2023 Chronic [place]-; endo-; and myocarditis; cardiomyopathy (except that caused by tuberculosis or sexually transmitted disease) (10 sources) Staphylococcal endocarditis; 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 subacute infective endocarditis] 08-15-2020 Episodic Residual codes; unclassified (20 sources) Obstructive sleep apnea syndrome; Translations: [Obstructive sleep apnea (adult) (pediatric)] Onset: 09-16-2023 04-08-2022 Chronic Residual codes; unclassified (5 sources) Obstructive sleep apnea (adult) (pediatric); Translations: [Obstructive sleep apnea (adult)(pediatric)] Onset: 05-20-2022 04-09-2022 Chronic Residual codes; unclassified (10 sources) Unable to perform personal care activity; Translations: [Other specified health status] 04-02-2022 Episodic Residual codes; unclassified (4 sources) Other specified health status; Translations: [Other specified conditions influencing health status] 04-09-2022 Episodic Spondylosis; intervertebral disc disorders; other back problems (20 sources) Lumbosacral spondylosis with radiculopathy; Translations: [Other spondylosis with radiculopathy, lumbosacral region] Onset: 09-16-2023 09-16-2023 Chronic Spondylosis; intervertebral disc disorders; other back problems (14 sources) Backache; Translations: [Dorsalgia, unspecified] Onset: 02-01-2022 08-15-2020 Episodic Superficial injury; contusion (17 sources) Abrasion, elbow area; Translations: [Abrasion of [...] EXPOS COVID-19] Onset: 01-28-2022 Urinary tract infections (10 sources) Acute urinary tract infection; Translations: [Urinary tract infection, site not specified] 07-20-2020 Episodic Viral infection (14 sources) Disease caused by 2019-nCoV; Translations: [COVID-19] [...] Onset: 01-28-2022 Episodic Other aftercare (1 source) longterm (current) use of insulin; Translations: [RETIREMENT CURRENT USE OF INSULIN] Onset: 05-20-2022 Episodic [...] Test Name Value Interpretation Reference Range Facility Urine Cultureon 03-25-2025 Bacteria identified Cx Nom (U) 20,000 colonies/ml mixed bacterial skin contaminants 2 Days PERFORMED BY: [place] [address] PATHOLOGIST DERRICK MAN HILDA Shine [facility] Comment on above: Performed By: #### C UU #### [address] Intravitreal Injection, Phar macologic Agent - OD - Right Eyeon 03-23-2025 [facility] Radiology Study observation (narrative) [facility] Optical coherence tomography study reporton 03-08-2025 [facility] Radiology Study observation (narrative) [facility] CT lumbar spine w conon 02-08 CT lumbar spine w [facility] [place] [address] [place] [address] Interventional Radiology Rpt Signed Patient: Evelin Patterson MR#: [id number] : 1955 Acct:[id number] Age/Sex: 69 / M ADM Date: 02/25/25 Loc: XD Room: Type: [facility] Attending Dr: Margot Singh MD Copies to: Margot Titus MD Ordering Provider: Margot Titus MD Date of Service: 02/25/25 IR/IR myelogram spine lumbosacral: S22.07OD, M51.372, M43.15 ([id number]) CT/CT lumbar spine w con: S22.07OD, M51.372, [...] Tinajero M.D. 02/25/2025 1:51 PM Dictation Location: [place] [address] Transcribed By: [facility] 02/25/25 1351 Dictated By: Michael Tinajero DO 02/25/25 1335 Signed By: 02/25/25 1351 Normal [facility] INR in Platelet poor plasma by Coagulation assayOrdered By: Arline Rouse on 02-25-2025 INR Coag (PPP) [Relative time] 1.0 {INR} Normal [facility] Comment on above: INR Therapeutic Rang [...] heart valves: 3 - 4.5 PERFORMED BY: [place] [address] PATHOLOGIST DERRICK MAN HILDA LEE M.D. Performed By: #### P T, PLT #### [address] Interventional radiology rep ortOrdered By: Michael Tinajero on 02-25-2025 Study report [facility] [place] [address] [place] [address] Interventional Radiology Rpt Signed Patient: Evelin Patterson MR#: [id number] : 1955 Acct:[id number] Age/Sex: 69 / M ADM Date: 5 Loc: XD Room: Type: [facility] Attending Dr: Margot Singh MD Copies to: Margot Titus MD~ Ordering Provider: Margot Titus MD Date of Service: 02/25/25 IR/IR myelogram spine lumbosacral: S22.07OD, M51.372,M43.15 ([id number]) CT/CT lumbar spine w con: S22.07OD, M51.372, [...] 2 to 3 years. Weakness. History of [id number] fracture. FINDINGS: Lumbar lordosis is maintained. No [...] Tinajero M.D. 02/25/2025 1:51 PM Dictation Location: [place] [address] Transcribed By: [facility] 02/25/25 1351 Dictated By: Michael Tinajero DO 02/25/25 1335 Signed By: 02/25/25 1351 [facility] Platelets [#/volume] in Bloo d by Automated countOrdered By: Arline Rouse on 02-25-2025 Platelets (Bld) [#/Vol] 228 10*3/uL Normal 150-450 [facility] Comment on above: Result Comment: PERF ORMED BY: [place] [address] PATHOLOGIST DERRICK MAN HILDA LEE M.D. Performed By: #### P T, PLT #### [address] Prothrombin time (PT)Ordered By: Arline Rouse on 02-25-2025 PT Coag (PPP) [Time] 11.2 s Normal 9.0-12.9 [facility] Comment on above: A hematocrit value g reater than 55% may lead to inaccurate results in coagulation testing. Patients having hematocrit values >55% require a special collection tube for coagulation studies. Please contact the laboratory at [phone] for redraw instructions. Result Comment: A he matocrit value greater than 55% may lead to inaccurate results in coagulation testing. Patients having hematocrit values >55% require a special collection tube for coagulation studies. Please contact the laboratory at [phone] for redraw instructions. Performed By: #### P T, PLT #### [facility] [address] [place], [place] [id number] [facility] Orders Onlyon 12-29-2024 Orders Only [id number] Karthik Patterson 1955 M Date Provider Department [place] 12/29/2024 [id number], HISTORICAL CARD Nery Castro Family History Problem Relation Age of Onset No Known Problems Mother No Known Problems Father Family Status - Relation Status Age at Mother Father [facility] on 11-24-[address] Hays made aw are yesterday that patient had lipid panel in October 2024. He said patient does not need repeat labs at this time. Patient made aware. [facility] on 11-22-2024 36 S/p heart cath on 11/18/2024, Dr. Hays would like lipid/LFT's on patient prior to his apt in January 2025. LM for patient to return my call. Orders put in and faxed to [facility]. [facility] Yane 11-18-2024 ANES ------ -- Attestation signed by Barb Hays MD at 11/18/2024 12:05 PM Barb Hays MD, MPH, [facility], [facility], [facility] Interventional Cardiology Pager Email: [email or web address] -- Patient: Evelin Patterson Procedure Information Date/Time: 11/18/24 1145 Procedure: Coronary angiography - JASMIN STEEL Location: [facility] THREAD SEPARATOR 2 BIPLANE / [facility] (Cath) Providers: Barb Hays MD Clinical information reviewed: Allergies Meds [...] Plan discussed with attending. Additional Equipment Requests Normal [facility] HPon 11-18-2024 HP ------ -- Attestation with edits by Barb Hays MD at 11/18/2024 12:11 PM Barb Hays MD, MPH, [facility], [facility], [facility] Interventional Cardiology Pager Email: [email or web address] -- H&P reviewed. The patient was examined and there are no changes to the H&P. Proceed with RHC and CORS for dyspnea, unstable angina. Saul Diego MD PGY-5 Review Assistant [facility] Pager # [phone] Normal [facility] Bridget 11-18-2024 JANE RN educated pt on d/ c instructions. [...] off of unit with all of belongings. [facility] Orders Onlyon 11-10-2024 Orders Only [id number] Karthik Patterson 1955 M Date Provider Department Center 11/10/2024 MARGARITA TURNER [facility] IN [facility] Family History Problem Relation Age of Onset No Known Problems Mother No Known Problems Father Family Status - Relation Status Age at Mother Father [facility] 36on 11-02-2024 36 Left message script sent into [employer] in [facility] 36 Patient states since he started Carvedilol. He has been taking for 2 to 3 days, patient states he's very fatigued, having hallucinations. Would you like to make a change, or recommendations. Please advise. [facility] HP 10-28-2024 [facility] Note Chief Complaint: New patient here to re-establish care. He had heart cath back in 2009 at [facility]. He was diagnosed with afib in February [...] until further cardiovascular testing can be completed. Barb Hays MD, MPH, [facility], [facility], [facility] Interventional Cardiology Pager Email: [email or web address] Normal [facility] Office Visiton 10-28-2024 Follow-up visit [id number] Karthik Patterson as L 1955 M Date Provider Department Center 10/28/2024 271-BARB HAYS JOO [facility] Family History Problem Relation Age of Onset No Known Problems Mother No Known Problems Father Family Status - Relation Status Age at Mother Father Level of Service:01470 [place] OFFICE/OUTPATIENT [facility] MDM 60 MINUTES Normal [facility] Orders Onlyon 10-28-2024 Orders Only [id number] Karthik Patterson as L 1955 Provider Department Center 10/28/2024 JADEN HONG JOO [facility] Family History Problem Relation Age of Onset No Known Problems Mother No Known Problems Father Family Status - Relation Status Age at Mother Father Normal [facility] Provider Letteron 06-14-2024 Provider Letter Provider Letter June 14, 2024 VEELIN PATTERSON [address] [place] [phone] : 1955 Dear Evelin , We have been trying to reach you with no success. It is important that you return our call upon receiving this letter. Also, at the time of your call, please provide us with your current information. Thank you for your prompt attention to this matter. Sincerely, Dr. Javid Haynes MD General Surgery [facility] Provider Letteron 04-09-2024 Provider Letter Provider Letter April 09, 20[address] [phone] : 1955 Dear Evelin , We have been trying to reach you with no success. It is important that you return our call regarding scheduling a consultation at our office upon receiving this letter. Also, at the time of your call, please provide us with your current information. Thank you for your prompt attention to this matter. Sincerely, [facility] [phone] [facility] Provider Letter Provider Letter April 09, [address] [phone] : 1955 Dear Evelin , We have been trying to reach you with no success. It is important that you return our call regarding your _ upon receiving this letter. Also, at the time of your call, please provide us with your current information. Thank you for your prompt attention to this matter. Sincerely, [facility] [phone] [facility] Provider Letteron 03-15-2024 Provider Letter Provider Letter March 15, 2024 EVELIN TOSCANOMAN Sharee [address] [phone] : 1955 Dear Evelin , We have been trying to reach you with no success. It is important that you return our call regarding a referral upon receiving this letter. Also, at the time of your call, please provide us with your current information. Thank you for your prompt attention to this matter. Sincerely, Dr. Javid Haynes MD General Surgery [facility] CBC AUTO DIFFon 12-19-2022 BASO # 0.1 103/ul Normal 0.0-0.1 [facility] Comment on above: Performed By: #### T STEFF BMP #### [facility] [address] [address] [address] Ladan Diehl Basophils/100 WBC (Bld) 1.2 % Normal 0.2-2.0 [facility] Comment on above: Performed By: #### T STEFF, BMP #### [facility] [address] [address] [address] Ladan Diehl EO # 0.4 103/ul Normal 0.0-0.7 [facility] Comment on above: Performed By: #### T SH, BMP #### [facility] [address] [place] [address] Dr. Ladan Diehl Eosinophils/100 WBC (Bld) 4.9 % Normal 0.9-7.0 [facility] Comment on above: Performed By: #### T SH, BMP #### [facility] [address] [place] [address] Dr. Ladan Diehl Erythrocyte distribution width (RBC) [Ratio] 14.8 % Normal 11.0-15.0 [facility] Comment on above: Performed By: #### T SH, BMP #### [facility] [address] [place] [address] Dr. Ladan Diehl Hematocrit (Bld) [Volume fraction] 36.7 % Critically low 42.0-54.0 [facility] Comment on above: Performed By: #### T SH, BMP #### [facility] [address] [place] [address] Dr. Ladan Diehl Hemoglobin (Bld) [Mass/Vol] 12.0 g/dL Critically low 14.0-18.0 [facility] Comment on above: Performed By: #### T SH, BMP #### [facility] [address] [place] [address] Dr. Ladan Diehl IG # 0.01 10e3/ul Normal 0.00-0.03 [facility] Comment on above: Performed By: #### T SH, BMP #### [facility] [address] [place] [address] Dr. Ladan Diehl IG % 0.1 % Normal 0.0-0.5 [facility] Comment on above: Performed By: #### T SH, BMP #### [facility] [address] [place] [address] Dr. Ladan Diehl LYMPH # 2.0 103/ul Normal 1.2-3.8 [facility] Comment on above: Performed By: #### T SH, BMP #### [facility] [address] [place] [address] Dr. Ladan Diehl Lymphocytes/100 WBC (Bld) 27.1 % Normal 20.5-60.0 [facility] Comment on above: Performed By: #### T SH, BMP #### [facility] [address] [place] [address] Dr. Ladan Diehl MANUAL DIFF REQ NO Normal [facility] Comment on above: Performed By: #### T SH, BMP #### [facility] [address] [place] [address] Dr. Ladan Diehl MCH (RBC) [Entitic mass] 29.6 pg Normal 25.9-34.0 [facility] Comment on above: Performed By: #### T SH, BMP #### [facility] [address] [place] [address] Dr. Ladan Diehl MCHC (RBC) [Mass/Vol] 32.7 g/dL Normal 29.9-35.2 [facility] Comment on above: Performed By: #### T SH, BMP #### [facility] [address] [place] [address] Dr. Ladan Diehl MCV (RBC) [Entitic vol] 90.6 fL Normal 80.0-94.0 [facility] Comment on above: Performed By: #### T SH, BMP #### [facility] [address] [place] [address] Dr. Ladan Diehl MONO # 0.8 103/ul Normal 0.3-0.8 [facility] Comment on above: Performed By: #### T SH, BMP #### [facility] [address] [place] [address] Dr. Ladan Diehl Monocytes/100 WBC (Bld) 10.4 % Normal 1.7-12.0 [facility] Comment on above: Performed By: #### T SH, BMP #### [facility] [address] [place] [address] Dr. Ladan Diehl NEUT # 4.2 103/ul Normal 1.4-6.5 [facility] Comment on above: Performed By: #### T SH, BMP #### [facility] [address] [address] [address] Ladan Diehl Neutrophils/100 WBC (Bld) 56.3 % Normal 43.0-75.0 [facility] Comment on above: Performed By: #### T SH, BMP #### [facility] [address] [address] [address] Ladan Diehl Platelet mean volume (Bld) [Entitic vol] 9.9 fL Normal 9.5-13.5 [facility] Comment on above: Performed By: #### T SH, BMP #### [facility] [address] [address] [address] Ladan Diehl PLT 227 103/ul Normal 150-450 [facility] Comment on above: Performed By: #### T SH, BMP #### [facility] [address] [place] [address] Dr. Ladan Diehl RBC 4.05 106/ul Critically low 4.70-6.10 [facility] Comment on above: Performed By: #### T SH, BMP #### [facility] [address] [address] [address] Ladan Diehl WBC 7.4 103/ul Normal 4.0-11.0 [facility] Comment on above: Performed By: #### T SH, BMP #### [facility] [address] [address] [address] Ladan Diehl FREE T3on 12-19-2022 FREE T3 2.07 pg/mlL Critically low 2.18-3.98 [facility] Comment on above: Performed By: #### T SH, BMP #### [facility] [address] [place] [address] Dr. Ladan Diehl FREE T4on 12-19-2022 Free T4 [Mass/Vol] 1.14 ng/dL Normal 0.76-1.46 [facility] Comment on above: Performed By: #### T SH, BMP #### [facility] [address] [place] [address] Dr. Ladan Diehl GLYCOHEMOGLOBIN A1Con 05-11- 2023 ADA RECOMMENDATION SEE BELOW Normal [facility] Comment on above: Result Comment: ADA RECOMMENDED LIMIT 4.0 - 6.0 ADA THERAPEUTIC TARGET < 7.0 ACTION SUGGESTED > 7.0 Performed By: #### T SH, BMP #### [facility] [address] [place] [address] Dr. Ladan Diehl Glucose [Mass/Vol] 134 mg/dL Normal [facility] Comment on above: Performed By: #### T SH, BMP #### [facility] [address] [address] [address] Ladan Diehl HbA1c (Bld) [Mass fraction] 6.3 % Critically high 4.5-6.2 [facility] Comment on above: Performed By: #### T SH, BMP #### [facility] [address] [place] [address] Dr. Ladan Diehl LIPID PROFILEon 12-19-2022 CHOL-HDL RATIO NORM SEE BELOW Normal [facility] Comment on above: Result Comment: 3.3 - 4.4 LOW RISK 4.4 - 7.1 AVERAGE RISK 7.1 - 11.0 MODERATE RISK >11.0 HIGH RISK Performed By: #### T SH, BMP #### [facility] [address] [place] [address] Dr. Ladan Diehl Cholesterol [Mass/Vol] 118 mg/dL Normal <=200 [facility] Comment on above: Performed By: #### T SH, BMP #### [facility] [address] [place] [address] Dr. Ladan Diehl Cholesterol in HDL [Mass/Vol] 43 mg/dL Normal 40-60 [facility] Comment on above: Performed By: #### T SH, BMP #### [facility] [address] [place] [address] Dr. Ladan Diehl Cholesterol in LDL [Mass/Vol] 48.8 mg/dL Normal [facility] Comment on above: Performed By: #### T SH, BMP #### [facility] [address] [place] [address] Dr. Ladan Diehl Cholesterol.total/Chol esterol in HDL [Mass ratio] 2.7 {ratio} Normal [facility] Comment on above: Performed By: #### T SH, BMP #### [facility] [address] [address] [address] Ladan Diehl HDL NORMAL > or = 60 mg/dl - LO W CARDIOVASCULAR RISK <40 mg/dl - HIGH CARDIOVASCULAR RISK Normal [facility] Comment on above: Performed By: #### T SH, BMP #### [facility] [address] [address] [address] Ladan Diehl LDL CALC NORMAL SEE BELOW Normal [facility] Comment on above: Result Comment: <100 mg/dl OPTIMAL 100 - 129 mg/dl NEAR OR ABOVE OPTIMAL 130 - 159 mg/dl BORDERLINE HIGH 160 - 189 mg/dl HIGH >190 mg/dl VERY HIGH Performed By: #### T SH, BMP #### [facility] [address] [place] [address] Dr. Ladan Diehl Triglyceride [Mass/Vol] 131 mg/dL Normal <=150 [facility] Comment on above: Performed By: #### T STEFF, BMP #### [facility] [address] [place] [address] Dr. Ladan Diehl VLDL CALC 26.2 mg/dL Normal [facility] Comment on above: Performed By: #### T SH, BMP #### [facility] [address] [place] [address] Dr. Ladan Diehl LIVER PROFILEon 12-19-2022 Albumin [Mass/Vol] 2.7 g/dL Critically low 3.4-5.0 [facility] Comment on above: Performed By: #### T STEFF, BMP #### [facility] [address] [place] [address] Dr. Ladan Diehl Albumin/Globulin [Mass ratio] 0.4 {ratio} Normal [facility] Comment on above: Performed By: #### T SH, BMP #### [facility] [address] [place] [address] Dr. Ladan Diehl ALP [Catalytic activity/Vol] 154 U/L Critically high 46-116 [facility] Comment on above: Performed By: #### T STEFF, BMP #### [facility] [address] [place] [address] Dr. Ladan Diehl ALT [Catalytic activity/Vol] 25 U/L Normal 16-63 [facility] Comment on above: Performed By: #### T SH, BMP #### [facility] [address] [place] [address] Dr. Ladan Diehl AST [Catalytic activity/Vol] 38 U/L Critically high 15-37 [facility] Comment on above: Performed By: #### T SH, BMP #### [facility] [address] [place] [address] Dr. Ladan Diehl BILI, CONJUGATED 0.2 mg/dL Normal 0.0-0.2 [facility] Comment on above: Performed By: #### T SH, BMP #### [facility] [address] [place] [address] Dr. Ladan Diehl Bilirubin [Mass/Vol] 0.8 mg/dL Normal 0.2-1.0 [facility] Comment on above: Performed By: #### T STEFF, BMP #### [facility] [address] [place] [address] Dr. Ladan Diehl Globulin (S) [Mass/Vol] 6.2 g/dL Normal [facility] Comment on above: Performed By: #### T SH, BMP #### [facility] [address] [place] [address] Dr. Ladan Diehl Protein [Mass/Vol] 8.9 g/dL Critically high 6.4-8.2 [facility] Comment on above: Performed By: #### T SH, BMP #### [facility] [address] [place] [address] Dr. Ladan Diehl MICROALBUMIN, RAND URon 12-09 mALB 25.4 mg/dL Normal <=30.0 [facility] Comment on above: Performed By: #### T STEFF, BMP #### [facility] [address] [place] [address] Dr. Ladan Diehl PROF CHEM 8 (BAS METB)on Anion gap [Moles/Vol] 10.7 mmol/L Normal [facility] Comment on above: Performed By: #### T SH, BMP #### [facility] [address] [address] [address] Ladan Diehl Calcium [Mass/Vol] 9.0 mg/dL Normal 8.5-10.1 [facility] Comment on above: Performed By: #### T SH, BMP #### [facility] [address] [address] [address] Ladan Diehl Chloride [Moles/Vol] 103 mmol/L Normal 98-107 [facility] Comment on above: Performed By: #### T SH, BMP #### [facility] [address] [address] [address] Ladan Diehl CO2 [Moles/Vol] 27.5 mmol/L Normal 21.0-32.0 [facility] Comment on above: Performed By: #### T SH, BMP #### [facility] [address] [address] [address] Ladan Diehl Creatinine [Mass/Vol] 1.29 mg/dL Normal 0.70-1.30 [facility] Comment on above: Performed By: #### T SH, BMP #### [facility] [address] [address] [address] Ladan Diehl EGFR-AF CYPRIOT >60 Normal >=60 [facility] Comment on above: Performed By: #### T SH, BMP #### [facility] [address] [address] [address] Ladan Diehl EGFR-NON AF CYPRIOT 56 mL/min/1.73m2 Critically low >=60 [facility] Comment on above: Performed By: #### T SH, BMP #### [facility] [address] [address] [address] Ladan Diehl Glucose [Mass/Vol] 108 mg/dL Critically high 74-106 [facility] Comment on above: Performed By: #### T SH, BMP #### [facility] [address] [address] [address] Ladan Diehl Potassium [Moles/Vol] 4.2 mmol/L Normal 3.5-5.1 [facility] Comment on above: Performed By: #### T SH, BMP #### [facility] [address] [address] [address] Ladan Diehl Sodium [Moles/Vol] 137 mmol/L Normal 136-145 [facility] Comment on above: Performed By: #### T SH, BMP #### [facility] [address] [place] [address] Dr. Ladan Diehl Urea nitrogen [Mass/Vol] 12.0 mg/dL Normal 7.0-18.0 [facility] Comment on above: Performed By: #### T SH, BMP #### [facility] [address] [place] [address] Dr. Ladan Diehl Urea nitrogen/Creatinine [Mass ratio] 9.3 mg/mg Normal [facility] Comment on above: Performed By: #### T STEFF, BMP #### [facility] [address] [place] [address] Dr. Ladan Diehl TSHon 12-19-2022 TSH 8.668 uIU/mL Critically high 0.358-3.74 0 [facility] Comment on above: Performed By: #### T STEFF, BMP #### [facility] [address] [place] [address] Dr. Ladan Diehl GLYCOHEMOGLOBIN A1Con 2021 ADA RECOMMENDATION SEE BELOW Normal [facility] Comment on above: Result Comment: ADA RECOMMENDED LIMIT 4.0 - 6.0 ADA THERAPEUTIC TARGET < 7.0 ACTION SUGGESTED > 7.0 Performed By: #### A 1C #### [facility] [address] [place] [address] Dr. Ladan Diehl Glucose [Mass/Vol] 140 mg/dL Normal [facility] Comment on above: Performed By: #### A 1C #### [facility] [address] [place] [address] Dr. Ladan Diehl HbA1c (Bld) [Mass fraction] 6.5 % Critically high 4.5-6.2 [facility] Comment on above: Performed By: #### A 1C #### [facility] [address] [place] [address] CSPINE WO CONon CT CSPINE WO CON EXAMINATION: CT CSPI [...] by: CAROL YIP Date: 2022-05-17 13:25 Normal [facility] CT HEAD WO CONon 05-17-2022 CT HEAD [...] by: CAROL YIP Date: 2022-05-17 13:07 Normal [facility] XR CHEST 1 Von 05-17-2022 XR CHEST [...] by: ABBIE AMBROCIO Date: 2022-05-17 12:53 Normal [facility] Progress Noteson 05-03-2022 It Application Architect Authentication Interface Message Text EMERGENCY TRIAGE, TREAT AND TRANSPORT (ET3) DOCUMENTATION OF TELEHEALTH VISIT Date / Time: 05/01/2022599 Name: Evelin Patterson : 1955 SSN: [id number] EMS Agency: [facility] [x] Verbal consent obtained [] [...] Completed by: Peter Molina, DO Normal [facility] [employer] [facility] Activated partial thrombopla stin time (aPTT) in platelet poor plasma by coagulation aOrdered By: Ramesh Byrd on 04-12-2022 aPTT Coag (PPP) [Time] 24.8 s 25.1-36.5 [facility] Automated erythrocytes count in urine sediment (number/area)Ordered By: Ramesh Byrd on 04-12-2022 RBC Auto (Urine sed) [#/Area] 20-49 [HPF] 0-4 [facility] Automated leukocytes count i n urine sediment (number/area)Ordered By: Ramesh Byrd on 04-12-2022 WBC Auto (Urine sed) [#/Area] 1-2 [HPF] 0-4 [facility] Basophils Auto (Bld) [#/Vol] Ordered By: Ramesh Byrd on 04-12-2022 Basophils (Bld) [#/Vol] 0.0 10*3/uL 0.0-0.2 [facility] Basophils/100 WBC Auto (Bld) Ordered By: Ramesh Byrd on 04-12-2022 Basophils/100 WBC (Bld) 0.6 % . [facility] Bilirubin Test strip Ql (U)O rdered By: Ramesh Byrd on 04-12-2022 Bilirubin Ql (U) Negative Negative [facility] Blood hemoglobin measurement (mass/volume)Ordered By: Ramesh Byrd on 04-12-2022 Hemoglobin (Bld) [Mass/Vol] 12.2 g/dL 13.0-17.0 [facility] Blood leukocytes automated c ount (number/volume)Ordered By: Ramesh Byrd on 04-12-2022 WBC (Bld) [#/Vol] 6.4 10*3/uL 4.5-11.0 [facility] Body fluid albumin measureme nt (mass/volume)Ordered By: Ramesh Byrd on 04-12-2022 Albumin (Body fld) [Mass/Vol] 2.3 g/dL 3.2-5.5 [facility] Color Auto (U)Ordered By: Andi Byrd on 04-12-2022 Color (U) Yellow Yellow [facility] Creatinine and Glomerular fi ltration rate.predicted panel (S/P/Bld)Ordered By: Ramesh Byrd on 04-12-2022 Creatinine [Mass/Vol] 1.14 mg/dL 0.64-1.27 [facility] Eosinophils Auto (Bld) [#/Vo l]Ordered By: Ramesh Byrd on 04-12-2022 Eosinophils (Bld) [#/Vol] 0.2 10*3/uL 0.0-0.45 [facility] Eosinophils/100 WBC Auto (Bl d)Ordered By: Ramesh Byrd on 04-12-2022 Eosinophils/100 WBC (Bld) 2.7 % . [facility] Erythrocyte distribution wid th Auto (RBC) [Ratio]Ordered By: Ramesh Byrd on 04-12-2022 Erythrocyte distribution width (RBC) [Ratio] 16.7 % 12.0-14.8 [facility] Estimated glomerular filtrat ion rate (GFR) non- AmericanOrdered By: Ramesh Byrd on 04-12-2022 GFR/1.73 sq M.predicted among non-blacks MDRD (S/P/Bld) [Vol rate/Area] > 60 mL/Min [facility] Globulin Calc (S) [Mass/Vol] Ordered By: Ramesh Byrd on 04-12-2022 Globulin (S) [Mass/Vol] 4.7 g/dL [facility] Glucose Glucometer (BldC) [M ass/Vol]Ordered By: Ramesh Byrd on 04-12-2022 Glucose [Mass/Vol] 168 mg/dL [facility] Comment on above: Random Glucose Refer ence Range is dependent on time and content of last meal. Glucose of more than 200 mg/dL in a nonstressed, ambulatory subject supports the diagnosis of Diabetes Mellitus. Hematocrit Auto (Bld) [Volum e fraction]Ordered By: Ramesh Byrd on 04-12-2022 Hematocrit (Bld) [Volume fraction] 36.7 % 38.8-50.0 [facility] Ketones Auto test strip (U) [Mass/Vol]Ordered By: Ramesh Byrd on 04-12-2022 Ketones (U) [Mass/Vol] Trace Negative [facility] - Chemistry and C hemistry - challengeOrdered By: Rmaesh Byrd on 04-12-2022 Magnesium [Mass/Vol] 1.3 mg/dL 1.6-2.6 [facility] Natriuretic peptide B (Bld) [Mass/Vol] 196.0 pg/mL 5-100 [facility] - CoagulationOrde red By: Ramesh Byrd on 04-12-2022 PT Coag (PPP) [Time] 12.5 s 9.0-12.9 [facility] - Hematology and Cell countsOrdered By: Ramesh Byrd on 04-12-2022 Nucleated RBC/100 WBC (Bld) [Ratio] 0.1 % 0-0.5 [facility] - UrinalysisOrder ed By: Ramesh Byrd on 04-12-2022 Hyaline casts LM Ql (Urine sed) 0-8 [LPF] 0-8 [facility] Lymphocytes Auto (Bld) [#/Vo l]Ordered By: Ramesh Byrd on 04-12-2022 Lymphocytes (Bld) [#/Vol] 1.0 10*3/uL 1.00-4.8 [facility] Lymphocytes/100 WBC Auto (Bl d)Ordered By: Ramesh Byrd on 04-12-2022 Lymphocytes/100 WBC (Bld) 16.1 % . [facility] MCH Auto (RBC) [Entitic mass ]Ordered By: Ramesh Byrd on 04-12-2022 MCH (RBC) [Entitic mass] 31.0 pg 27.5-35.2 [facility] MCHC Auto (RBC) [Mass/Vol]Or dered By: Ramesh Byrd on 04-12-2022 MCHC (RBC) [Mass/Vol] 33.1 g/dL 32.5-35.6 [facility] MCV Auto (RBC) [Entitic vol] Ordered By: Ramesh Byrd on 04-12-2022 MCV (RBC) [Entitic vol] 93.5 fL 83.5-101 [facility] Monocytes Auto (Bld) [#/Vol] Ordered By: Ramesh Byrd on 04-12-2022 Monocytes (Bld) [#/Vol] 0.8 10*3/uL 0.0-0.8 [facility] Monocytes/100 WBC Auto (Bld) Ordered By: Ramesh Byrd on 04-12-2022 Monocytes/100 WBC (Bld) 12.0 % . [facility] Neutrophils Auto (Bld) [#/Vo l]Ordered By: Ramesh Byrd on 04-12-2022 Neutrophils (Bld) [#/Vol] 4.4 10*3/uL 1.8-7.7 [facility] Neutrophils/100 WBC Auto (Bl d)Ordered By: Ramesh Byrd on 04-12-2022 Neutrophils/100 WBC (Bld) 68.6 % . [facility] Nitrite Test strip Ql (U)Ord ered By: Ramesh Byrd on 04-12-2022 Nitrite Ql (U) Negative Negative [facility] No Panel InformationOrdered By: Ramesh Byrd on 04-12-2022 Estimated GFR () > 60 mL/Min [facility] Comment on above: GFR estimated refere nce range: According to KDOQI guidelines, <60 ml/min/1.73m2 is sufficient to diagnose a patient with chronic kidney disease. Pharmacy Creatinine Clearance (Chem 97.67 [facility] Platelet mean volume Auto (B ld) [Entitic vol]Ordered By: Ramesh Byrd on 04-12-2022 Platelet mean volume (Bld) [Entitic vol] 8.0 fL 6.6-10.1 [facility] Platelet poor plasma interna tional normalized ratio (INR) by coagulation assay (relatOrdered By: Ramesh Byrd on 04-12-2022 INR Coag (PPP) [Relative time] 1.1 {INR} [facility] Comment on above: INR Therapeutic Rang [...] 04-12-2022 Platelets (Bld) [#/Vol] 191 10*3/uL 150-450 [facility] Protein Auto test strip (U) [Mass/Vol]Ordered By: Ramesh Byrd on 04-12-2022 Protein (U) [Mass/Vol] 100 mg/dL Negative [facility] Protein [Mass/volume] in Ser um or PlasmaOrdered By: Ramesh Byrd on 04-12-2022 Protein [Mass/Vol] 7.0 g/dL 6.1-7.9 [facility] RBC Auto (Bld) [#/Vol]Ordere d By: Ramesh Byrd on 04-12-2022 RBC (Bld) [#/Vol] 3.93 10*6/uL 3.90-5.60 [facility] Serum or plasma alanine vivas otransferase measurement without P-5'-P (enzymatic activiOrdered By: Ramesh Byrd on 04-12-2022 ALT No additional P-5'-P [Catalytic activity/Vol] 34 U/L 10-60 [facility] Serum or plasma albumin/glob ulin mass ratioOrdered By: Ramesh Byrd on 04-12-2022 Albumin/Globulin [Mass ratio] 0.5 {ratio} [facility] Serum or plasma alkaline dilan sphatase measurement (enzymatic activity/volume)Ordered By: Ramesh Byrd on 04-12-2022 ALP [Catalytic activity/Vol] 97 U/L 32-92 [facility] Serum or plasma anion gap de terminationOrdered By: Ramesh Byrd on 04-12-2022 Anion gap [Moles/Vol] 17.1 mmol/L 6.0-15.0 [facility] Serum or plasma aspartate am inotransferase measurement (enzymatic activity/volume)Ordered By: Ramesh Byrd on 04-12-2022 AST [Catalytic activity/Vol] 136 U/L 10-42 [facility] Serum or plasma calcium osbaldo urement (mass/volume)Ordered By: Ramesh Byrd on 04-12-2022 Calcium [Mass/Vol] 8.6 mg/dL 8.2-10.2 [facility] Serum or plasma chloride judith surement (moles/volume)Ordered By: Ramesh Byrd on 04-12-2022 Chloride [Moles/Vol] 97 mmol/L 95-114 [facility] Serum or plasma glucose osbaldo urement (mass/volume)Ordered By: Ramesh Byrd on 04-12-2022 Glucose [Mass/Vol] 164 mg/dL 70-100 [facility] Comment on above: ADA recommended refe rence range Random Glucose Reference Range is dependent on time and content of last meal. Glucose of more than 200 mg/dL in a nonstressed, ambulatory subject supports the diagnosis of Diabetes Mellitus. Serum or plasma potassium me asurement (moles/volume)Ordered By: Ramesh Byrd on 04-12-2022 Potassium [Moles/Vol] 3.5 mmol/L 3.5-5.1 [facility] Serum or plasma sodium measu rement (moles/volume)Ordered By: Ramesh Byrd on 04-12-2022 Sodium [Moles/Vol] 136 mmol/L 136-146 [facility] Serum or plasma total biliru bin measurement (mass/volume)Ordered By: Ramesh Byrd on 04-12-2022 Bilirubin [Mass/Vol] 1.3 mg/dL 0.3-1.2 [facility] Comment on above: Samples from patient s who have taken Naproxen have shown spurious elevation in Total Bilirubin levels. A metabolite of Naproxen, O-desmethylnaproxen, has been shown to interfere with the Ronny-Chirag method for measuring Total Bilirubin. Serum or plasma total carbon dioxide measurement (moles/volume)Ordered By: Ramesh Byrd on 04-12-2022 CO2 [Moles/Vol] 25.4 mmol/L 22.0-30.0 [facility] Serum or plasma urea nitroge n measurement (mass/volume)Ordered By: Ramesh Byrd on 04-12-2022 Urea nitrogen [Mass/Vol] 13 mg/dL 9- [facility] Specific gravity Auto test s trip (U) [Rel density]Ordered By: Ramesh Byrd on 04-12-2022 Specific gravity (U) [Rel density] 1.020 1.001-1.03 0 [facility] Squamous epithelial cells de tection in urine sediment by light microscopyOrdered By: Ramesh Byrd on 04-12-2022 Epithelial cells.squamous LM Ql (Urine sed) 0-1 [HPF] 0-2 [facility] TSH DL <= 0.005 mIU/L QnOrde red By: Ramesh Byrd on 04-12-2022 TSH Qn 13.14 m[IU]/L 0.45-5.33 [facility] Troponin I.cardiac [Mass/vol ume] in Serum or Plasma by High sensitivity methodOrdered By: Ramesh Byrd on 04-12-2022 Troponin I.cardiac High sensitivity method [Mass/Vol] 18 pg/mL 0-20 [facility] Urine bacteria detection by automated methodOrdered By: Ramesh Byrd on 04-12-2022 Bacteria Auto Ql (U) None seen None Seen [facility] Urine clarity by refractomet ry automatedOrdered By: Ramesh Byrd on 04-12-2022 Clarity Refractometry automated (U) Clear Clear [facility] Urine glucose measurement by automated test strip (mass/volume)Ordered By: Ramesh Byrd on 04-12-2022 Glucose Auto test strip (U) [Mass/Vol] Normal mg/dL Normal [facility] Urine hemoglobin detection b y automated test stripOrdered By: Ramesh Byrd on 04-12-2022 Hemoglobin Auto test strip Ql (U) 2+ Negative [facility] Urine leukocyte esterase det ection by automated test stripOrdered By: Rmaesh Byrd on 04-12-2022 Leukocyte esterase Auto test strip Ql (U) Negative Negative [facility] Urobilinogen Auto test strip (U) [Mass/Vol]Ordered By: Ramesh Byrd on 04-12-2022 Urobilinogen (U) [Mass/Vol] Normal mg/dL Normal [facility] pH Auto test strip (U)Ordere d By: Ramesh Byrd on 04-12-2022 pH (U) 6.5 [pH] 5.0-9.0 [facility] Albumin [Mass/volume] in Ser um or PlasmaOrdered By: Lupe Hernandez on 04-09-2022 Albumin [Mass/Vol] 1.9 g/dL 3.2-5.5 [facility] Basophils Auto (Bld) [#/Vol] Ordered By: Lupe Hernandez on 04-09-2022 Basophils (Bld) [#/Vol] 0.1 10*3/uL 0.0-0.2 [facility] Basophils/100 WBC Auto (Bld) Ordered By: Lupe Henrandez on 04-09-2022 Basophils/100 WBC (Bld) 1.3 % . [facility] Blood hemoglobin measurement (mass/volume)Ordered By: Lupe Hernandez on 04-09-2022 Hemoglobin (Bld) [Mass/Vol] 11.2 g/dL 13.0-17.0 [facility] Blood leukocytes automated c ount (number/volume)Ordered By: Lupe Hernandez on 04-09-2022 WBC (Bld) [#/Vol] 5.4 10*3/uL 4.5-11.0 [facility] Creatinine and Glomerular fi ltration rate.predicted panel (S/P/Bld)Ordered By: Lupe Hernandez on 04-09-2022 Creatinine [Mass/Vol] 0.88 mg/dL 0.64-1.27 [facility] Eosinophils Auto (Bld) [#/Vo l]Ordered By: Lupe Hernandez on 04-09-2022 Eosinophils (Bld) [#/Vol] 0.3 10*3/uL 0.0-0.45 [facility] Eosinophils/100 WBC Auto (Bl d)Ordered By: Lupe Hernandez on 04-09-2022 Eosinophils/100 WBC (Bld) 5.6 % . [facility] Erythrocyte distribution wid th Auto (RBC) [Ratio]Ordered By: Lupe Hernandez on 04-09-2022 Erythrocyte distribution width (RBC) [Ratio] 16.5 % 12.0-14.8 [facility] Estimated glomerular filtrat ion rate (GFR) non- AmericanOrdered By: Lupe Hernandez on 04-09-2022 GFR/1.73 sq M.predicted among non-blacks MDRD (S/P/Bld) [Vol rate/Area] > 60 mL/Min [facility] Globulin Calc (S) [Mass/Vol] Ordered By: Lupe Hernandez on 04-09-2022 Globulin (S) [Mass/Vol] 4.2 g/dL [facility] Glucose Glucometer (BldC) [M ass/Vol]Ordered By: Lupe Hernandez on 04-09-2022 Glucose [Mass/Vol] 178 mg/dL [facility] Comment on above: Random Glucose Refer ence Range is dependent on time and content of last meal. Glucose of more than 200 mg/dL in a nonstressed, ambulatory subject supports the diagnosis of Diabetes Mellitus. Hematocrit Auto (Bld) [Volum e fraction]Ordered By: Lupe Hernandez on 04-09-2022 Hematocrit (Bld) [Volume fraction] 33.6 % 38.8-50.0 [facility] - Hematology and Cell countsOrdered By: Lupe Hernandez on 04-09-2022 Nucleated RBC/100 WBC (Bld) [Ratio] 0.2 % 0-0.5 [facility] Lymphocytes Auto (Bld) [#/Vo l]Ordered By: Lupe Hernandez on 04-09-2022 Lymphocytes (Bld) [#/Vol] 1.0 10*3/uL 1.00-4.8 [facility] Lymphocytes/100 WBC Auto (Bl d)Ordered By: Lupe Hernandez on 04-09-2022 Lymphocytes/100 WBC (Bld) 18.3 % . [facility] MCH Auto (RBC) [Entitic mass ]Ordered By: Lupe Hernandez on 04-09-2022 MCH (RBC) [Entitic mass] 31.1 pg 27.5-35.2 [facility] MCHC Auto (RBC) [Mass/Vol]Or dered By: Lupe Hernandez on 04-09-2022 MCHC (RBC) [Mass/Vol] 33.5 g/dL 32.5-35.6 [facility] MCV Auto (RBC) [Entitic vol] Ordered By: Lupe Hernandez on 04-09-2022 MCV (RBC) [Entitic vol] 93.0 fL 83.5-101 [facility] Monocytes Auto (Bld) [#/Vol] Ordered By: Lupe Hernandez on 04-09-2022 Monocytes (Bld) [#/Vol] 0.6 10*3/uL 0.0-0.8 [facility] Monocytes/100 WBC Auto (Bld) Ordered By: Lupe Hernandez on 04-09-2022 Monocytes/100 WBC (Bld) 11.0 % . [facility] Neutrophils Auto (Bld) [#/Vo l]Ordered By: Lupe Hernandez on 04-09-2022 Neutrophils (Bld) [#/Vol] 3.4 10*3/uL 1.8-7.7 [facility] Neutrophils/100 WBC Auto (Bl d)Ordered By: Lupe Hernandez on 04-09-2022 Neutrophils/100 WBC (Bld) 63.8 % . [facility] No Panel InformationOrdered By: Lupe Hernandez on 04-09-2022 Bedside Glucose Comment Glu2: cleaned meter [facility] Estimated GFR () > 60 mL/Min [facility] Comment on above: GFR estimated refere nce range: According to KDOQI guidelines, <60 ml/min/1.73m2 is sufficient to diagnose a patient with chronic kidney disease. Pharmacy Creatinine Clearance (Chem 130.27 [facility] Platelet mean volume Auto (B ld) [Entitic vol]Ordered By: uLpe Hernandez on 04-09-2022 Platelet mean volume (Bld) [Entitic vol] 7.6 fL 6.6-10.1 [facility] Platelets Auto (Bld) [#/Vol] Ordered By: Lupe Hernandez on 04-09-2022 Platelets (Bld) [#/Vol] 214 10*3/uL 150-450 [facility] Protein [Mass/volume] in Ser um or PlasmaOrdered By: Lupe Hernandez on 04-09-2022 Protein [Mass/Vol] 6.1 g/dL 6.1-7.9 [facility] RBC Auto (Bld) [#/Vol]Ordere d By: Lupe Hernandez on 04-09-2022 RBC (Bld) [#/Vol] 3.61 10*6/uL 3.90-5.60 [facility] Serum or plasma alanine vivas otransferase measurement without P-5'-P (enzymatic activiOrdered By: Lupe Hernandez on 04-09-2022 ALT No additional P-5'-P [Catalytic activity/Vol] 21 U/L 10-60 [facility] Serum or plasma albumin/glob ulin mass ratioOrdered By: Lupe Hernandez on 04-09-2022 Albumin/Globulin [Mass ratio] 0.5 {ratio} [facility] Serum or plasma alkaline dilan sphatase measurement (enzymatic activity/volume)Ordered By: Lupe Hernandez on 04-09-2022 ALP [Catalytic activity/Vol] 89 U/L 32-92 [facility] Serum or plasma anion gap de terminationOrdered By: Lupe Hernandez on 04-09-2022 Anion gap [Moles/Vol] 8.4 mmol/L 6.0-15.0 [facility] Serum or plasma aspartate am inotransferase measurement (enzymatic activity/volume)Ordered By: Lupe Hernandez on 04-09-2022 AST [Catalytic activity/Vol] 27 U/L 1042 [facility] Serum or plasma calcium osbaldo urement (mass/volume)Ordered By: Lupe Hernandez on 04-09-2022 Calcium [Mass/Vol] 8.2 mg/dL 8.2-10.2 [facility] Serum or plasma chloride judith surement (moles/volume)Ordered By: Lupe Hernandez on 04-09-2022 Chloride [Moles/Vol] 98 mmol/L 95-114 [facility] Serum or plasma glucose osbaldo urement (mass/volume)Ordered By: Lupe Hernandez on 04-09-2022 Glucose [Mass/Vol] 150 mg/dL 70-100 [facility] Comment on above: ADA recommended refe rence range Random Glucose Reference Range is dependent on time and content of last meal. Glucose of more than 200 mg/dL in a nonstressed, ambulatory subject supports the diagnosis of Diabetes Mellitus. Serum or plasma potassium me asurement (moles/volume)Ordered By: Lupe Hernandez on 04-09-2022 Potassium [Moles/Vol] 3.4 mmol/L 3.5-5.1 [facility] Serum or plasma sodium measu rement (moles/volume)Ordered By: Lupe Hernandez on 04-09-2022 Sodium [Moles/Vol] 134 mmol/L 136-146 [facility] Serum or plasma total biliru bin measurement (mass/volume)Ordered By: Lupe Hernandez on 04-09-2022 Bilirubin [Mass/Vol] 0.7 mg/dL 0.3-1.2 [facility] Serum or plasma total carbon dioxide measurement (moles/volume)Ordered By: Lupe Hernandez on 04-09-2022 CO2 [Moles/Vol] 31.0 mmol/L 22.0-30.0 [facility] Serum or plasma urea nitroge n measurement (mass/volume)Ordered By: Lupe Hernandez on 04-09-2022 Urea nitrogen [Mass/Vol] 9 mg/dL 9 [facility] Bacterial blood cultureOrder ed By: Luke Moran on 04-07-2022 Bacteria identified Cx Nom (Bld) NO GROWTH 5 DAYS [facility] - Chemistry and C hemistry - challengeOrdered By: Luke Moran on 04-04-2022 CO2 [Moles/Vol] 29.4 mmol/L 23.0-27.0 [facility] HCO3 (Bld) [Moles/Vol] 28.1 mmol/L 23.0-29.[address] [facility] No Panel InformationOrdered By: Luke Moran on 04-04-2022 Arterial Blood Base Excess 3.4 mmol/L -3.0-3.0 [facility] Arterial Blood Oxygen Content 6.4 mmol/L 6.6-9.7 [facility] Arterial Blood Oxygen Saturation 92.1 % 95.0-100.0 [facility] Arterial Blood Partial Pressure CO2 43.2 mm[Hg] 35.0-45.0 [facility] Arterial Blood Partial Pressure O2 61.4 mm[Hg] 80.0-100.0 [facility] Arterial Blood pH 7.43 7.35-7.45 [facility] Blood Gas Critical Value See comment [facility] Comment on above: Critical Value mandeep durham on: 04/04/2022 at 09:33 Blood Gas Liter Flow 2 L/min [facility] Blood Gas Sample Site Left radial Fi [facility] FiO2 28 % [facility] Oxygen Delivery Device Nasal cannula [facility] Automated erythrocytes count in urine sediment (number/area)Ordered By: Jair Gabriel on 04-03-2022 RBC Auto (Urine sed) [#/Area] 3-4 [HPF] 0-4 [facility] Automated leukocytes count i n urine sediment (number/area)Ordered By: Jair Gabriel on 04-03-2022 WBC Auto (Urine sed) [#/Area] None seen [HPF] 0-4 [facility] Bilirubin Test strip Ql (U)O rdered By: Jair Gabriel on 04-03-2022 Bilirubin Ql (U) Negative Negative [facility] Color Auto (U)Ordered By: Tam Gabriel on 04-03-2022 Color (U) Yellow Yellow [facility] Hepatitis B virus surface Ag [Presence] in Serum or Plasma by ImmunoassayOrdered By: Luke Moran on 04-03-2022 HBV surface Ag IA Ql Negative Negative [facility] Comment on above: Performed at: [address] [id number] Image Scientist: Genaro Becerril PhD, Phone: [phone] IgA [Mass/volume] in Serum o r PlasmaOrdered By: Luke Moran on 04-03-2022 IgA [Mass/Vol] 697 mg/dL 61-437 [facility] IgG [Mass/volume] in Serum o r PlasmaOrdered By: Luke Moran on 04-03-2022 IgG [Mass/Vol] 1107 mg/dL 603-1613 [facility] IgM [Mass/volume] in Serum o r PlasmaOrdered By: Luke Moran on 04-03-2022 IgM [Mass/Vol] 91 mg/dL 20-172 [facility] Comment on above: Performed at: [facility] [address] [id number] Image Scientist: Genaro Becerril PhD, Phone: [phone] Immunofixation for UrineOrde red By: Luke Moran on 04-03-2022 Interpretation Immunofixation (U) [Interp] See comment . [facility] Comment on above: No monoclonality det ected. Performed at: [facility] [id number] Image Scientist: Genaro Becerril PhD, Phone: [phone] Immunoglobulin light chains. kappa.free [Mass/volume] in SerumOrdered By: Luke Moran on 04-03-2022 Immunoglobulin light chains.kappa.free (S) [Mass/Vol] 93.9 mg/L 3.3-19.4 [facility] Immunoglobulin light chains. kappa.free/Immunoglobulin light chains.lambda.free [MassOrdered By: Luke Moran on 04-03-2022 Immunoglobulin light chains.kappa.free/Immu noglobulin light chains.lambda.free (S) [Mass ratio] 1.52 0.26-1.65 [facility] Comment on above: Performed at: [facility] [address] [id number] Image Scientist: Genaro Becerril PhD, Phone: [phone] Immunoglobulin light chains. lambda.free [Mass/volume] in Serum or PlasmaOrdered By: Luke Moran on 04-03-2022 Immunoglobulin light chains.lambda.free [Mass/Vol] 61.6 mg/L 5.7-26.3 [facility] Ketones Auto test strip (U) [Mass/Vol]Ordered By: Jair Gabriel on 04-03-2022 Ketones (U) [Mass/Vol] Negative Negative [facility] - UrinalysisOrder ed By: Jair Gabriel on 04-03-2022 Hyaline casts LM Ql (Urine sed) 0-8 [LPF] 0-8 [facility] Nitrite Test strip Ql (U)Ord ered By: Jair Gabriel on 04-03-2022 Nitrite Ql (U) Negative Negative [facility] No Panel InformationOrdered By: Luke Moran on 04-03-2022 Hepatitis C Interpretation See comment . [facility] Comment on above: Negative Not infected with HCV, unless recent infection is suspected or other evidence exists to indicate HCV infection. Hepatitis C RNA Quantitative N/A [facility] Serum Immunofixation See comment . [facility] Comment on above: Immunofixation shows IgG monoclonal protein with lambda light chain specificity. Protein Auto test strip (U) [Mass/Vol]Ordered By: Jair Gabriel on 04-03-2022 Protein (U) [Mass/Vol] Negative Negative [facility] Random cortisol measurementO rdered By: Luke Moran on 04-03-2022 Cortisol [Mass/Vol] 5.8 ug/dL [facility] Comment on above: Reference range: AM 6 - 24 ug/dl PM <10 ug/dl Serum hepatitis B virus surf calin antibody detectionOrdered By: Luke Moran on 04-03-2022 HBV surface Ab Ql (S) Reactive . [facility] Comment on above: Non Reactive: Incons istent [...] IA [Rel units/Vol] 0.1 s/co ratio 0.0-0.9 [facility] Comment on above: --- 04/04/22 0736 -- - Hep C Ab previously reported as: <0.1 s/co ratio Specific gravity Auto test s trip (U) [Rel density]Ordered By: Jair Gabriel on 04-03-2022 Specific gravity (U) [Rel density] 1.035 1.001-1.03 0 [facility] Squamous epithelial cells de tection in urine sediment by light microscopyOrdered By: Jair Gabriel on 04-03-2022 Epithelial cells.squamous LM Ql (Urine sed) None seen [HPF] 0-2 [facility] TSH DL <= 0.005 mIU/L QnOrde red By: Luke Moran on 04-03-2022 TSH Qn 22.19 m[IU]/L 0.45-5.33 [facility] Urine bacteria detection by automated methodOrdered By: Jair Gabriel on 04-03-2022 Bacteria Auto Ql (U) None seen None Seen [facility] Urine clarity by refractomet ry automatedOrdered By: Jair Gabriel on 04-03-2022 Clarity Refractometry automated (U) Clear Clear [facility] Urine glucose measurement by automated test strip (mass/volume)Ordered By: Jair Gabriel on 04-03-2022 Glucose Auto test strip (U) [Mass/Vol] 100 mg/dL Normal [facility] Urine hemoglobin detection b y automated test stripOrdered By: Jair Gabriel on 04-03-2022 Hemoglobin Auto test strip Ql (U) 3+ Negative [facility] Urine leukocyte esterase det ection by automated test stripOrdered By: Jair Gabriel on 04-03-2022 Leukocyte esterase Auto test strip Ql (U) Negative Negative [facility] Urobilinogen Auto test strip (U) [Mass/Vol]Ordered By: Jair Gabriel on 04-03-2022 Urobilinogen (U) [Mass/Vol] Normal mg/dL Normal [facility] pH Auto test strip (U)Ordere d By: Jair Gabriel on 04-03-2022 pH (U) 5.0 [pH] 5.0-9.0 [facility] Activated partial thrombopla stin time (aPTT) in platelet poor plasma by coagulation aOrdered By: Jair Gabriel on 04-02-2022 aPTT Coag (PPP) [Time] 24.8 s 25.1-36.5 [facility] COVID-19 Positive/NegativeOr dered By: Jair Gabriel on 04-02-2022 SARS-CoV-2 (COVID-19) N gene MANJIT+probe Ql (Resp) Negative Negative [facility] Comment on above: Testing for SARS-CoV -2 by RT-PCR This test was developed and its performance characteristics determined by [employer] ([employer]) and validated at the [facility]. This test has not been FDA [...] (COVID-19) Ag IA.rapid Ql (Resp) Negative Negative [facility] Comment on above: This is a duplicate Cristal SARS Antigen (GONZALO) result to be used for statistical tracking purpose only. Laboratory - Chemistry and C hemistry - challengeOrdered By: Jair Gabriel on 04-02-2022 Natriuretic peptide B (Bld) [Mass/Vol] 55.0 pg/mL 5-100 [facility] - CoagulationOrde red By: Jair Gabriel on 04-02-2022 PT Coag (PPP) [Time] 11.9 s 9.0-12.9 [facility] No Panel InformationOrdered By: Luke Moran on 04-02-2022 D-Dimer Quantitative (PE/DVT) 2825 ng/mL 0-243 [facility] Comment on above: The reference range [...] to co-morbid conditions. No Panel InformationOrdered By: Jari Gabriel on 04-02-2022 SARS Antigen (LFIA) [facility] Platelet poor plasma interna tional normalized ratio (INR) by coagulation assay (relatOrdered By: Jair Gabriel on 04-02-2022 INR Coag (PPP) [Relative time] 1.1 {INR} [facility] Comment on above: INR Therapeutic Rang [...] High sensitivity method [Mass/Vol] 26 pg/mL 0-20 [facility] Albumin [Mass/volume] in Ser um or PlasmaOrdered By: Sarah Osuna on 03-16-2022 Albumin [Mass/Vol] 1.9 g/dL 3.2-5.5 [facility] Creatinine and Glomerular fi ltration rate.predicted panel (S/P/Bld)Ordered By: Sarah Osuna on 03-16-2022 Creatinine [Mass/Vol] 1.27 mg/dL 0.64-1.27 [facility] Estimated glomerular filtrat ion rate (GFR) non- AmericanOrdered By: Sarah Osuna on 03-16-2022 GFR/1.73 sq M.predicted among non-blacks MDRD (S/P/Bld) [Vol rate/Area] 57 mL/Min [facility] Glucose Glucometer (BldC) [M ass/Vol]Ordered By: Xin Phan on 03-16-2022 Glucose [Mass/Vol] 377 mg/dL [facility] Comment on above: Random Glucose Refer ence Range is dependent on time and content of last meal. Glucose of more than 200 mg/dL in a nonstressed, ambulatory subject supports the diagnosis of Diabetes Mellitus. No Panel InformationOrdered By: Sarah Osuna on 03-16-2022 Estimated GFR () > 60 mL/Min [facility] Comment on above: GFR estimated refere nce range: According to KDOQI guidelines, <60 ml/min/1.73m2 is sufficient to diagnose a patient with chronic kidney disease. Pharmacy Creatinine Clearance (Chem 90.76 [facility] Serum or plasma calcium osbaldo urement (mass/volume)Ordered By: Sarah Osuna on 03-16-2022 Calcium [Mass/Vol] 8.4 mg/dL 8.2-10.2 [facility] Serum or plasma chloride judith surement (moles/volume)Ordered By: Sarah Osuna on 03-16-2022 Chloride [Moles/Vol] 99 mmol/L 95-114 [facility] Serum or plasma glucose osbaldo urement (mass/volume)Ordered By: Sarah Osuna on 03-16-2022 Glucose [Mass/Vol] 265 mg/dL 70-100 [facility] Comment on above: Delta: 480 on -1040 ADA recommended reference range Random Glucose Reference Range is dependent on time and content of last meal. Glucose of more than 200 mg/dL in a nonstressed, ambulatory subject supports the diagnosis of Diabetes Mellitus. Serum or plasma potassium me asurement (moles/volume)Ordered By: Xin Phan on 03-16-2022 Potassium [Moles/Vol] 4.0 mmol/L 3.5-5.1 [facility] Serum or plasma sodium measu rement (moles/volume)Ordered By: Sarah Osuna on 03-16-2022 Sodium [Moles/Vol] 132 mmol/L 136-146 [facility] Serum or plasma total carbon dioxide measurement (moles/volume)Ordered By: Sarah Osuna on 03-16-2022 CO2 [Moles/Vol] 25.4 mmol/L 22.0-30.0 [facility] Serum or plasma urea nitroge n measurement (mass/volume)Ordered By: Sarah Osuna on 03-16-2022 Urea nitrogen [Mass/Vol] 24 mg/dL 9- [facility] Serum phospholipid phosphoru s measurement (mass/volume)Ordered By: Xin Phan on 03-16-2022 Phospholipid phosphorus (S) [Mass/Vol] 2.0 mg/dL 2.5-4.6 [facility] No Panel InformationOrdered By: Xin Phan on 03-15-2022 Bedside Glucose Comment See comment [facility] Comment on above: Glu2: WILL NOTIFY DR /RN Bedside Glucose #2 Comment Cleaned meter [facility] Automated erythrocytes count in urine sediment (number/area)Ordered By: Sarah Osuna on 03-14-2022 RBC Auto (Urine sed) [#/Area] 0-1 [HPF] 0-4 [facility] Automated leukocytes count i n urine sediment (number/area)Ordered By: Sarah Osuna on 03-14-2022 WBC Auto (Urine sed) [#/Area] 0-1 [HPF] 0-4 [facility] Basophils Auto (Bld) [#/Vol] Ordered By: Leah Huang on 03-14-2022 Basophils (Bld) [#/Vol] 0.0 10*3/uL 0.0-0.2 [facility] Basophils/100 WBC Auto (Bld) Ordered By: Leah Huang on 03-14-2022 Basophils/100 WBC (Bld) 0.2 % . [facility] Bilirubin Auto test strip Ql (U)Ordered By: Sarah Osuna on 03-14-2022 Bilirubin Ql (U) Negative Negative [facility] Blood hemoglobin measurement (mass/volume)Ordered By: Leah Huang on 03-14-2022 Hemoglobin (Bld) [Mass/Vol] 11.6 g/dL 13.0-17.0 [facility] Blood leukocytes automated c ount (number/volume)Ordered By: Leah Huang on 03-14-2022 WBC (Bld) [#/Vol] 6.0 10*3/uL 4.5-11.0 [facility] Creatinine [Mass/volume] in UrineOrdered By: Sarah Osuna on 03-14-2022 Creatinine (U) [Mass/Vol] 76.9 mg/dL [facility] Comment on above: No reference range e stablished Eosinophils Auto (Bld) [#/Vo l]Ordered By: Leah Huang on 03-14-2022 Eosinophils (Bld) [#/Vol] 0.1 10*3/uL 0.0-0.45 [facility] Eosinophils/100 WBC Auto (Bl d)Ordered By: Leah Huang on 03-14-2022 Eosinophils/100 WBC (Bld) 1.4 % . [facility] Erythrocyte distribution wid th Auto (RBC) [Ratio]Ordered By: Leah Huang on 03-14-2022 Erythrocyte distribution width (RBC) [Ratio] 15.8 % 12.0-14.8 [facility] Globulin Calc (S) [Mass/Vol] Ordered By: Leah Huang on 03-14-2022 Globulin (S) [Mass/Vol] 3.8 g/dL [facility] Glucose mean value [Mass/vol ume] in Blood Estimated from glycated hemoglobinOrdered By: Leah Huang on 03-14-2022 Average glucose Estimated from glycated hemoglobin (Bld) [Mass/Vol] 329 mg/dL [facility] Hematocrit Auto (Bld) [Volum e fraction]Ordered By: Leah Huang on 03-14-2022 Hematocrit (Bld) [Volume fraction] 35.1 % 38.8-50.0 [facility] Hemoglobin A1c percentageOrd ered By: Leah Huang on 03-14-2022 HbA1c (Bld) [Mass fraction] 13.1 % 4.3-5.6 [facility] Comment on above: Increased risk for d iabetes: 5.7 - 6.4 diabetes: >6.4 glycemic control for adults with diabetes: <7.0 Ketones Auto test strip (U) [Mass/Vol]Ordered By: Sarah Osuna on 03-14-2022 Ketones (U) [Mass/Vol] Negative Negative [facility] - Hematology and Cell countsOrdered By: Leah Huang on 03-14-2022 Nucleated RBC/100 WBC (Bld) [Ratio] 0.1 % 0-0.5 [facility] - UrinalysisOrder ed By: Sarah Osuna on 03-14-2022 Hyaline casts LM Ql (Urine sed) 0-8 [LPF] 0-8 [facility] Lymphocytes Auto (Bld) [#/Vo l]Ordered By: Leah Huang on 03-14-2022 Lymphocytes (Bld) [#/Vol] 1.4 10*3/uL 1.00-4.8 [facility] Lymphocytes/100 WBC Auto (Bl d)Ordered By: Leah Huang on 03-14-2022 Lymphocytes/100 WBC (Bld) 22.7 % . [facility] MCH Auto (RBC) [Entitic mass ]Ordered By: Leah Huang on 03-14-2022 MCH (RBC) [Entitic mass] 29.9 pg 27.5-35.2 [facility] MCHC Auto (RBC) [Mass/Vol]Or dered By: Leah Huang on 03-14-2022 MCHC (RBC) [Mass/Vol] 33.0 g/dL 32.5-35.6 [facility] MCV Auto (RBC) [Entitic vol] Ordered By: Leah Huang on 03-14-2022 MCV (RBC) [Entitic vol] 90.4 fL 83.5-101 [facility] Monocytes Auto (Bld) [#/Vol] Ordered By: Leah Huang on 03-14-2022 Monocytes (Bld) [#/Vol] 0.5 10*3/uL 0.0-0.8 [facility] Monocytes/100 WBC Auto (Bld) Ordered By: Leah Huang on 03-14-2022 Monocytes/100 WBC (Bld) 9.0 % . [facility] Neutrophils Auto (Bld) [#/Vo l]Ordered By: Leah Huang on 03-14-2022 Neutrophils (Bld) [#/Vol] 4.0 10*3/uL 1.8-7.7 [facility] Neutrophils/100 WBC Auto (Bl d)Ordered By: Leah Huang on 08-04-2022 Neutrophils/100 WBC (Bld) 66.7 % . [facility] Platelet mean volume Auto (B ld) [Entitic vol]Ordered By: Leah Huang on 03-14-2022 Platelet mean volume (Bld) [Entitic vol] 8.9 fL 6.6-10.1 [facility] Platelets Auto (Bld) [#/Vol] Ordered By: Leah Huang on 03-14-2022 Platelets (Bld) [#/Vol] 143 10*3/uL 150-450 [facility] Protein Auto test strip (U) [Mass/Vol]Ordered By: Sarah Osuna on 03-14-2022 Protein (U) [Mass/Vol] Negative Negative [facility] Protein [Mass/volume] in Ser um or PlasmaOrdered By: Leah Huang on 03-14-2022 Protein [Mass/Vol] 5.8 g/dL 6.1-7.9 [facility] Protein [Mass/volume] in Uri neOrdered By: Sarah Osuna on 03-14-2022 Protein (U) [Mass/Vol] 13 mg/dL 0-9 [facility] RBC Auto (Bld) [#/Vol]Ordere d By: Leah Huang on 03-14-2022 RBC (Bld) [#/Vol] 3.88 10*6/uL 3.90-5.60 [facility] Serum or plasma alanine vivas otransferase measurement without P-5'-P (enzymatic activiOrdered By: Leah uHang on 03-14-2022 ALT No additional P-5'-P [Catalytic activity/Vol] 35 U/L 10-60 [facility] Serum or plasma albumin/glob ulin mass ratioOrdered By: Leah Huang on 03-14-2022 Albumin/Globulin [Mass ratio] 0.5 {ratio} [facility] Serum or plasma alkaline dilna sphatase measurement (enzymatic activity/volume)Ordered By: Leah Huang on 03-14-2022 ALP [Catalytic activity/Vol] 120 U/L 32-92 [facility] Serum or plasma aspartate am inotransferase measurement (enzymatic activity/volume)Ordered By: Leah Huang on 03-14-2022 AST [Catalytic activity/Vol] 36 U/L 10-42 [facility] Serum or plasma total biliru bin measurement (mass/volume)Ordered By: Leah Huang on 03-14-2022 Bilirubin [Mass/Vol] 1.0 mg/dL 0.3-1.2 [facility] Squamous epithelial cells de tection in urine sediment by light microscopyOrdered By: Sarah Osuna on 03-14-2022 Epithelial cells.squamous LM Ql (Urine sed) None seen [HPF] 0-2 [facility] Urea nitrogen [Mass/volume] in UrineOrdered By: Leah Huang on 03-14-2022 Urea nitrogen (U) [Mass/Vol] 454 mg/dL Not Estab. [facility] Comment on above: Performed at: [address] [id number] Image Scientist: Genaro Becerril PhD, Phone: [phone] Urine appearanceOrdered By: Sarah Osuna on 03-14-2022 Appearance (U) Clear Clear [facility] Urine bacteria detection by automated methodOrdered By: Sarah Osuna on 03-14-2022 Bacteria Auto Ql (U) None seen None Seen [facility] Urine colorOrdered By: Sarah Osuna on 03-14-2022 Color (U) Yellow Yellow [facility] Urine glucose measurement by automated test strip (mass/volume)Ordered By: Sarah Osuna on 03-14-2022 Glucose Auto test strip (U) [Mass/Vol] >=1000 mg/dL Normal [facility] Urine hemoglobin detection b y automated test stripOrdered By: Sarah Osuna on 03-14-2022 Hemoglobin Auto test strip Ql (U) 2+ Negative [facility] Urine leukocyte esterase det ection by automated test stripOrdered By: Sarah Osuna on 03-14-2022 Leukocyte esterase Auto test strip Ql (U) Negative Negative [facility] Urine nitrite detection by a utomated test stripOrdered By: Sarah Osuna on 03-14-2022 Nitrite Auto test strip Ql (U) Negative Negative [facility] Urine protein/creatinine rat ioOrdered By: Sarah Osuna on 03-14-2022 Protein/Creatinine (U) [Ratio] 169 mg/g{Cre} 0-200 [facility] Urine sodium measurement (mo les/volume)Ordered By: Leah Huang on 03-14-2022 Sodium (U) [Moles/Vol] 20 mmol/L [facility] Comment on above: No reference range e stablished Urobilinogen Auto test strip (U) [Mass/Vol]Ordered By: Sarah Osuna on 03-14-2022 Urobilinogen (U) [Mass/Vol] Normal mg/dL Normal [facility] Yeast detection in urine sed iment by light microscopyOrdered By: Sarah Osuna on 03-14-2022 Yeast LM Ql (Urine sed) Budding yeast [HPF] None Seen [facility] Comment on above: 1+ BUDDING YEAST pH Auto test strip (U)Ordere d By: Sarah Osuna on 03-14-2022 pH (U) 1.020 [pH] 1.001-1.03 0 [facility] pH (U) 5.5 [pH] 5.0-9.0 [facility] POINT OF CARE GLUCOSEon 01-10 Glucose [Mass/Vol] 161 mg/dL Critically high -[address] [place] [address] Comment on above: Performed By: #### T STEFF, BMP #### [facility] [address] [address] [address] Ladan Diehl POINT OF CARE GLUCOSEon 01-09 Glucose [Mass/Vol] 358 mg/dL Critically high -106 [facility] Comment on above: Performed By: #### A 1C #### [facility] [address] [address] [address] Ladan Diehl Glucose [Mass/Vol] 279 mg/dL Critically high [address] [place] [address] Comment on above: Performed By: #### A 1C #### [facility] [address] [address] [address] Ladan Diehl Glucose [Mass/Vol] 247 mg/dL Critically high -106 [facility] Comment on above: Performed By: #### T STEFF, BMP #### [facility] [address] [address] [address] Ladan Diehl Glucose [Mass/Vol] 357 mg/dL Critically high 74-106 [facility] Comment on above: Performed By: #### A 1C #### [facility] [address] [address] [address] Ladan Diehl PROF CHEM 8 (BAS METB)on Anion gap [Moles/Vol] 11.1 mmol/L Normal [facility] Comment on above: Performed By: #### T SH, BMP #### [facility] [address] [address] [address] Ladan Diehl Calcium [Mass/Vol] 8.8 mg/dL Normal 8.5-10.1 [facility] Comment on above: Performed By: #### T SH, BMP #### [facility] [address] [address] [address] Ladan Diehl Chloride [Moles/Vol] 99 mmol/L Normal 98-107 [facility] Comment on above: Performed By: #### T SH, BMP #### [facility] [address] [address] [address] Ladan Diehl CO2 [Moles/Vol] 27.2 mmol/L Normal 21.0-32.0 [facility] Comment on above: Performed By: #### T SH, BMP #### [facility] [address] [address] [address] Ladan Diehl Creatinine [Mass/Vol] 1.59 mg/dL Critically high 0.70-1.30 [facility] Comment on above: Performed By: #### T SH, BMP #### [facility] [address] [address] [address] Ladan Diehl EGFR-AF CYPRIOT 53 mL/min/1.73m2 Critically low >=60 [facility] Comment on above: Performed By: #### T SH, BMP #### [facility] [address] [address] [address] Ladan Diehl EGFR-NON AF CYPRIOT 44 mL/min/1.73m2 Critically low >=60 [facility] Comment on above: Performed By: #### T SH, BMP #### [facility] [address] [address] [address] Ladan Diehl Glucose [Mass/Vol] 284 mg/dL Critically high 74-106 [facility] Comment on above: Performed By: #### T SH, BMP #### [facility] [address] [address] [address] Ladan Diehl Potassium [Moles/Vol] 4.2 mmol/L Normal 3.5-5.1 [facility] Comment on above: Performed By: #### T SH, BMP #### [facility] [address] [place] [address] Dr. Ladan Diehl Sodium [Moles/Vol] 133 mmol/L Critically low 136-145 [facility] Comment on above: Performed By: #### T SH, BMP #### [facility] [address] [place] [address] Dr. Ladan Diehl Urea nitrogen [Mass/Vol] 22.0 mg/dL Critically high 7.0-18.0 [facility] Comment on above: Performed By: #### T SH, BMP #### [facility] [address] [place] [address] Dr. Ladan Diehl Urea nitrogen/Creatinine [Mass ratio] 13.8 mg/mg Normal [facility] Comment on above: Performed By: #### T SH, BMP #### [facility] [address] [place] [address] Dr. Ladan Diehl TROPONIN, HIGH SENSITIVITYon 01-24-2022 HSTROP 13.7 pg/mL Normal 4.0-76.1 [facility] Comment on above: Result Comment: CUT- OFF POINTS HAVE BEEN ESTABLISHED BASED ON THE FOURTH UNIVERSAL DEFINITIONS OF MYOCARDIAL INFARCTION. THE UPPER REFERENCE LIMIT (URL) OF TROPONIN, DEFINED THE 99TH PERCENTILE OF cTnI DISTRIBUTION IN A REFERENCE POPULATION, HAS BEEN CONFIRMED THE DECISION THRESHOLD FOR [place] DIAGNOSIS. Performed By: #### H STROPN #### [facility] [address] [place] [address] Dr. Ladan Diehl TSHon 01-24-2022 TSH 0.381 uIU/mL Normal 0.358-3.74 0 [facility] Comment on above: Performed By: #### T STEFF, BMP #### [facility] [address] [place] [address] Dr. aLdan Diehl US LIT DOP LEG BILon 022 [...] CAROL YIP Date: 2022-01-24 09:51 Normal [facility] BNPon 01-23-2022 Natriuretic peptide B (Bld) [Mass/Vol] 262.0 pg/mL Normal <=900.0 [facility] Comment on above: Performed By: #### A 1C #### [facility] [address] [place] [address] Dr. Ladan Diehl CBC AUTO DIFFon 01-23-2022 BASO # 0.1 103/ul Normal 0.0-0.1 [facility] Comment on above: Performed By: #### T STEFF, BMP #### [facility] [address] [place] [address] Dr. Ladan Diehl Basophils/100 WBC (Bld) 0.8 % Normal 0.2-2.0 [facility] Comment on above: Performed By: #### T STEFF, BMP #### [facility] [address] [place] [address] Dr. Ladan Diehl EO # 0.3 103/ul Normal 0.0-0.7 [facility] Comment on above: Performed By: #### T STEFF, BMP #### [facility] [address] [place] [address] Dr. Ladan Diehl Eosinophils/100 WBC (Bld) 4.4 % Normal 0.9-7.0 [facility] Comment on above: Performed By: #### T SH, BMP #### [facility] [address] [place] [address] Dr. Ladan Diehl Erythrocyte distribution width (RBC) [Ratio] 14.0 % Normal 11.0-15.0 [facility] Comment on above: Performed By: #### T SH, BMP #### [facility] [address] [place] [address] Dr. Ladan Diehl Hematocrit (Bld) [Volume fraction] 38.3 % Critically low 42.0-54.0 [facility] Comment on above: Performed By: #### T SH, BMP #### [facility] [address] [place] [address] Dr. Ladan Diehl Hemoglobin (Bld) [Mass/Vol] 12.0 g/dL Critically low 14.0-18.0 [facility] Comment on above: Performed By: #### T SH, BMP #### [facility] [address] [place] [address] Dr. Ladan Diehl IG # 0.03 10e3/ul Normal 0.00-0.03 [facility] Comment on above: Performed By: #### T SH, BMP #### [facility] [address] [place] [address] Dr. Ladan Diehl IG % 0.5 % Normal 0.0-0.5 [facility] Comment on above: Performed By: #### T SH, BMP #### [facility] [address] [place] [address] Dr. Ladan Diehl LYMPH # 1.2 103/ul Normal 1.2-3.8 [facility] Comment on above: Performed By: #### T SH, BMP #### [facility] [address] [place] [address] Dr. Ladan Diehl Lymphocytes/100 WBC (Bld) 20.2 % Critically low 20.5-60.0 [facility] Comment on above: Performed By: #### T SH, BMP #### [facility] [address] [place] [address] Dr. Ladan Diehl MANUAL DIFF REQ NO Normal [facility] Comment on above: Performed By: #### T SH, BMP #### [facility] [address] [place] [address] Dr. Ladan Diehl MCH (RBC) [Entitic mass] 29.6 pg Normal 25.9-34.0 [facility] Comment on above: Performed By: #### T SH, BMP #### [facility] [address] [place] [address] Dr. Ladan Diehl MCHC (RBC) [Mass/Vol] 31.3 g/dL Normal 29.9-35.2 [facility] Comment on above: Performed By: #### T SH, BMP #### [facility] [address] [place] [address] Dr. Ladan Diehl MCV (RBC) [Entitic vol] 94.6 fL Critically high 80.0-94.0 [facility] Comment on above: Performed By: #### T SH, BMP #### [facility] [address] [place] [address] Dr. Ladan Diehl MONO # 0.7 103/ul Normal 0.3-0.8 [facility] Comment on above: Performed By: #### T SH, BMP #### [facility] [address] [place] [address] Dr. Ladan Diehl Monocytes/100 WBC (Bld) 10.7 % Normal 1.7-12.0 [facility] Comment on above: Performed By: #### T SH, BMP #### [facility] [address] [place] [address] Dr. Ladan Diehl NEUT # 3.9 103/ul Normal 1.4-6.5 [facility] Comment on above: Performed By: #### T SH, BMP #### [facility] [address] [place] [address] Dr. Ladan Diehl Neutrophils/100 WBC (Bld) 63.4 % Normal 43.0-75.0 [facility] Comment on above: Performed By: #### T SH, BMP #### [facility] [address] [place] [address] Dr. Ladan Diehl Platelet mean volume (Bld) [Entitic vol] 10.0 fL Normal 9.5-13.5 [facility] Comment on above: Performed By: #### T STEFF, BMP #### [facility] [address] [address] [address] Ladan Diehl PLT 171 103/ul Normal 150-450 [facility] Comment on above: Performed By: #### T STEFF, BMP #### [facility] [address] [address] [address] Ladan Diehl RBC 4.05 106/ul Critically low 4.70-6.10 [facility] Comment on above: Performed By: #### T STEFF, BMP #### [facility] [address] [address] [address] Ladan Diehl WBC 6.1 103/ul Normal 4.0-11.0 [facility] Comment on above: Performed By: #### T STEFF, BMP #### [facility] [address] [place] [address] Dr. Ladan Diehl CTA CHEST WO W [...] XIN BUI Date: 2022-01-23 19:35 Normal [facility] Covid-19 PCR (CVDTB)on 01-09 SARS-CoV-2 (COVID-19) RNA MANJIT+probe Ql (Unsp spec) Not detected Normal NOT DETECTED [facility] Comment on above: Result Comment: When diagnostic [...] for this test is supported by the [employer] of Health and Human Service's declaration that [...] used). Performed By: #### A 1C #### [facility] [address] [place] [address] Dr. Ladan Diehl LACTATE/LACTIC ACIDon 2021 Lactate [Moles/Vol] 1.6 mmol/L Normal 0.4-1.9 [facility] Comment on above: Performed By: #### L ACT #### [facility] [address] [address] [address] Ladan Diehl PROF 14(COMP METB)on 022 Albumin [Mass/Vol] 2.7 g/dL Critically low 3.4-5.0 [facility] Comment on above: Performed By: #### A 1C #### [facility] [address] [place] [address] Dr. Ldaan Diehl Albumin/Globulin [Mass ratio] 0.5 {ratio} Normal [facility] Comment on above: Performed By: #### A 1C #### [facility] [address] [address] [address] Ladan Diehl ALP [Catalytic activity/Vol] 120 U/L Critically high 46-116 [facility] Comment on above: Performed By: #### A 1C #### [facility] [address] [address] [address] Ladan Diehl ALT [Catalytic activity/Vol] 23 U/L Normal 16-63 [facility] Comment on above: Performed By: #### A 1C #### [facility] [address] [address] [address] Ladan Diehl Anion gap [Moles/Vol] 10.3 mmol/L Normal [facility] Comment on above: Performed By: #### A 1C #### [facility] [address] [place] [address] Dr. Ladan Diehl AST [Catalytic activity/Vol] 29 U/L Normal 15-37 [facility] Comment on above: Performed By: #### A 1C #### [facility] [address] [address] [address] Ladan Diehl Bilirubin [Mass/Vol] 1.0 mg/dL Normal 0.2-1.0 [facility] Comment on above: Performed By: #### A 1C #### [facility] [address] [place] [address] Dr. Ladan Diehl Calcium [Mass/Vol] 8.8 mg/dL Normal 8.5-10.1 [facility] Comment on above: Performed By: #### A 1C #### [facility] [address] [place] [address] Dr. Ladan Diehl Chloride [Moles/Vol] 101 mmol/L Normal 98-107 [facility] Comment on above: Performed By: #### A 1C #### [facility] [address] [place] [address] Dr. Ladan Diehl CO2 [Moles/Vol] 30.8 mmol/L Normal 21.0-32.0 [facility] Comment on above: Performed By: #### A 1C #### [facility] [address] [address] [address] Ladan Diehl Creatinine [Mass/Vol] 1.40 mg/dL Critically high 0.70-1.30 [facility] Comment on above: Performed By: #### A 1C #### [facility] [address] [address] [address] Ladan Diehl EGFR-AF CYPRIOT >60 Normal >=60 [facility] Comment on above: Performed By: #### A 1C #### [facility] [address] [address] [address] Ladan Diehl EGFR-NON AF CYPRIOT 51 mL/min/1.73m2 Critically low >=60 [facility] Comment on above: Performed By: #### A 1C #### [facility] [address] [place] [address] Dr. Ladan Diehl Globulin (S) [Mass/Vol] 5.3 g/dL Normal [facility] Comment on above: Performed By: #### A 1C #### [facility] [address] [place] [address] Dr. Ladan Diehl Glucose [Mass/Vol] 125 mg/dL Critically high 74-106 [facility] Comment on above: Performed By: #### A 1C #### [facility] [address] [place] [address] Dr. Ladan Diehl Potassium [Moles/Vol] 4.1 mmol/L Normal 3.5-5.1 [facility] Comment on above: Performed By: #### A 1C #### [facility] [address] [address] [address] Ladan Diehl Protein [Mass/Vol] 8.0 g/dL Normal 6.4-8.2 [facility] Comment on above: Performed By: #### A 1C #### [facility] [address] [place] [address] Dr. Ladan Diehl Sodium [Moles/Vol] 138 mmol/L Normal 136-145 [facility] Comment on above: Performed By: #### A 1C #### [facility] [address] [address] [address] Ladan Diehl Urea nitrogen [Mass/Vol] 20.0 mg/dL Critically high 7.0-18.0 [facility] Comment on above: Performed By: #### A 1C #### [facility] [address] [place] [address] Dr. Ladan Diehl Urea nitrogen/Creatinine [Mass ratio] 14.3 mg/mg Normal [facility] Comment on above: Performed By: #### A 1C #### [facility] [address] [place] [address] Dr. Ladan Diehl PROTIMEon 01-23-2022 INR Coag (PPP) [Relative time] 1.02 {INR} Normal [facility] Comment on above: Performed By: #### P T, PTT #### [facility] [address] [place] [address] Dr. Ladan Diehl INR GUIDELINES SEE BELOW Normal [facility] Comment on above: Result Comment: KALI RED INR: 2.0 - 3.0 CONDITIONS NOT LISTED BELOW 2.5 - 3.5 FOR PROSTHETIC HEART VALVE REPLACEMENT 2.5 - 3.5 RECURRENT THROMBOSIS Performed By: #### P T, PTT #### [facility] [address] [place] [address] Dr. Ladan Diehl PT Coag (PPP) [Time] 11.0 s Normal 9.0-11.6 [facility] Comment on above: Performed By: #### P T, PTT #### [facility] [address] [place] [address] Dr. Ladan Diehl PTTon 01-23-2022 aPTT Coag (Bld) [Time] 27.6 s Normal 22.3-36.2 [facility] Comment on above: Performed By: #### P T, PTT #### [facility] [address] [place] [address] Dr. Ladan Diehl TROPONIN, HIGH SENSITIVITYon 01-23-2022 HSTROP 10.4 pg/mL Normal 4.0-76.1 [facility] Comment on above: Result Comment: CUT- OFF POINTS HAVE BEEN ESTABLISHED BASED ON THE FOURTH UNIVERSAL DEFINITIONS OF MYOCARDIAL INFARCTION. THE UPPER REFERENCE LIMIT (URL) OF TROPONIN, DEFINED THE 99TH PERCENTILE OF cTnI DISTRIBUTION IN A REFERENCE POPULATION, HAS BEEN CONFIRMED THE DECISION THRESHOLD FOR [place] DIAGNOSIS. Performed By: #### A 1C #### [facility] [id number] Ladan Diehl [address] ABD/PELV W CONon 01-20-[address] ABD/PELV W CON EXAMINATION: CT ABD/ [...] by: TANNER PEDRAZA Date: 2022-01-18 23:39 Normal [facility] XR CHEST 1 Von 01-19-2022 XR CHEST [...] by: ROSELIA RIVERA Date: 2022-01-18 22:16 Normal [facility] XR KNEE LT 4V or >on 022 [...] JENNIFER CASTILLO Date: 2022-01-18 23:06 Normal [facility] CBC AUTO DIFFon 01-18-2022 BASO # 0.1 103/ul Normal 0.0-0.1 [facility] Comment on above: Performed By: #### C BC #### [facility] [address] [address] [address] Ladan Diehl Basophils/100 WBC (Bld) 0.8 % Normal 0.2-2.0 [facility] Comment on above: Performed By: #### C BC #### [facility] [address] [address] [address] Ladan Diehl EO # 0.4 103/ul Normal 0.0-0.7 [facility] Comment on above: Performed By: #### C BC #### [facility] [address] [address] [address] Ladan Diehl Eosinophils/100 WBC (Bld) 4.3 % Normal 0.9-7.0 [facility] Comment on above: Performed By: #### C BC #### [facility] [address] [address] [address] Ladan Diehl Erythrocyte distribution width (RBC) [Ratio] 14.4 % Normal 11.0-15.0 [facility] Comment on above: Performed By: #### C BC #### [facility] [address] [address] [address] Ladan Diehl Hematocrit (Bld) [Volume fraction] 37.2 % Critically low 42.0-54.0 [facility] Comment on above: Performed By: #### C BC #### [facility] [address] [address] [address] Ladan Diehl Hemoglobin (Bld) [Mass/Vol] 11.9 g/dL Critically low 14.0-18.0 [facility] Comment on above: Performed By: #### C BC #### [facility] [address] [address] [address] Ladan Diehl IG # 0.04 10e3/ul Critically high 0.00-0.03 [facility] Comment on above: Performed By: #### C BC #### [facility] [address] [address] [address] Ladan Diehl IG % 0.5 % Normal 0.0-0.5 [facility] Comment on above: Performed By: #### C BC #### [facility] [address] [place] [address] Dr. Ladan Diehl LYMPH # 2.2 103/ul Normal 1.2-3.8 [facility] Comment on above: Performed By: #### C BC #### [facility] [address] [place] [address] Dr. Ladan Diehl Lymphocytes/100 WBC (Bld) 26.2 % Normal 20.5-60.0 [facility] Comment on above: Performed By: #### C BC #### [facility] [address] [place] [address] Dr. Ladan Diehl MANUAL DIFF REQ NO Normal [facility] Comment on above: Performed By: #### C BC #### [facility] [address] [place] [address] Dr. Ladan Diehl MCH (RBC) [Entitic mass] 30.4 pg Normal 25.9-34.0 [facility] Comment on above: Performed By: #### C BC #### [facility] [address] [place] [address] Dr. Ladan Diehl MCHC (RBC) [Mass/Vol] 32.0 g/dL Normal 29.9-35.2 [facility] Comment on above: Performed By: #### C BC #### [facility] [address] [place] [address] Dr. Ladan Diehl MCV (RBC) [Entitic vol] 94.9 fL Critically high 80.0-94.0 [facility] Comment on above: Performed By: #### C BC #### [facility] [address] [address] [address] Ladan Diehl MONO # 0.9 103/ul Critically high 0.3-0.8 [facility] Comment on above: Performed By: #### C BC #### [facility] [address] [address] [address] Ladan Diehl Monocytes/100 WBC (Bld) 10.3 % Normal 1.7-12.0 [facility] Comment on above: Performed By: #### C BC #### [facility] [address] [place] [address] Dr. Ladan Diehl NEUT # 5.0 103/ul Normal 1.4-6.5 [facility] Comment on above: Performed By: #### C BC #### [facility] [address] [place] [address] Dr. Ladan Diehl Neutrophils/100 WBC (Bld) 57.9 % Normal 43.0-75.0 [facility] Comment on above: Performed By: #### C BC #### [facility] [address] [place] [address] Dr. Ladan Diehl Platelet mean volume (Bld) [Entitic vol] 9.9 fL Normal 9.5-13.5 [facility] Comment on above: Performed By: #### C BC #### [facility] [address] [place] [address] Dr. Ladan Diehl PLT 180 103/ul Normal 150-450 [facility] Comment on above: Performed By: #### C BC #### [facility] [address] [place] [address] Dr. Ladan Diehl RBC 3.92 106/ul Critically low 4.70-6.10 [facility] Comment on above: Performed By: #### C BC #### [facility] [address] [place] [address] Dr. Ladan Diehl WBC 8.6 103/ul Normal 4.0-11.0 [facility] Comment on above: Performed By: #### C BC #### [facility] [address] [place] [address] Dr. Ladan Diehl PROF 14(COMP METB)on 022 Albumin [Mass/Vol] 2.6 g/dL Critically low 3.4-5.0 [facility] Comment on above: Performed By: #### C MP #### [facility] [address] [place] [address] Dr. Ladan Diehl Albumin/Globulin [Mass ratio] 0.5 {ratio} Normal [facility] Comment on above: Performed By: #### C MP #### [facility] [address] [place] [address] Dr. Ladan Diehl ALP [Catalytic activity/Vol] 184 U/L Critically high 46-116 [facility] Comment on above: Performed By: #### C MP #### [facility] [address] [place] [address] Dr. Ladan Diehl ALT [Catalytic activity/Vol] 24 U/L Normal 16-63 [facility] Comment on above: Performed By: #### C MP #### [facility] [address] [place] [address] Dr. Ladan Diehl Anion gap [Moles/Vol] 10.1 mmol/L Normal [facility] Comment on above: Performed By: #### C MP #### [facility] [address] [place] [address] Dr. Ladan Diehl AST [Catalytic activity/Vol] 22 U/L Normal 15-37 [facility] Comment on above: Performed By: #### C MP #### [facility] [address] [place] [address] Dr. Ladan Diehl Bilirubin [Mass/Vol] 0.5 mg/dL Normal 0.2-1.0 [facility] Comment on above: Performed By: #### C MP #### [facility] [address] [place] [address] Dr. Ladan Diehl Calcium [Mass/Vol] 8.6 mg/dL Normal 8.5-10.1 [facility] Comment on above: Performed By: #### C MP #### [facility] [address] [place], [place] [id number] Dr. Ladan Diehl Chloride [Moles/Vol] 101 mmol/L Normal 98-107 [facility] Comment on above: Performed By: #### C MP #### [facility] [address] [address] [address] Ladan Diehl CO2 [Moles/Vol] 30.9 mmol/L Normal 21.0-32.0 [facility] Comment on above: Performed By: #### C MP #### [facility] [address] [address] [address] Ladan Diehl Creatinine [Mass/Vol] 1.72 mg/dL Critically high 0.70-1.30 [facility] Comment on above: Performed By: #### C MP #### [facility] [address] [place] [address] Dr. Ladan Diehl EGFR-AF CYPRIOT 49 mL/min/1.73m2 Critically low >=60 [facility] Comment on above: Performed By: #### C MP #### [facility] [address] [place] [address] Dr. Ladan Diehl EGFR-NON AF CYPRIOT 40 mL/min/1.73m2 Critically low >=60 [facility] Comment on above: Performed By: #### C MP #### [facility] [address] [place] [address] Dr. Ladan Diehl Globulin (S) [Mass/Vol] 5.2 g/dL Normal [facility] Comment on above: Performed By: #### C MP #### [facility] [address] [address] [address] Ladan Diehl Glucose [Mass/Vol] 253 mg/dL Critically high 74-106 [facility] Comment on above: Performed By: #### C MP #### [facility] [address] [place] [address] Dr. Ladan Diehl Potassium [Moles/Vol] 4.0 mmol/L Normal 3.5-5.1 [facility] Comment on above: Performed By: #### C MP #### [facility] [address] [place] [address] Dr. Ladan Diehl Protein [Mass/Vol] 7.8 g/dL Normal 6.4-8.2 [facility] Comment on above: Performed By: #### C MP #### [facility] [address] [place], [place] [address] Dr. Ladan Diehl Sodium [Moles/Vol] 138 mmol/L Normal 136-145 [facility] Comment on above: Performed By: #### C MP #### [facility] [address] [place], [place] [address] Dr. Ladan Dihel Urea nitrogen [Mass/Vol] 30.0 mg/dL Critically high 7.0-18.0 [facility] Comment on above: Performed By: #### C MP #### [facility] [address] [address] [address] Ladan Diehl Urea nitrogen/Creatinine [Mass ratio] 17.4 mg/mg Normal [facility] Comment on above: Performed By: #### C MP #### [facility] [address] [address] [address] Ladan Diehl Vital Signs Date Time Vital Sign Value Performing Clinician Facility 03-10-2025 16:14-0400 Body height 177.8 cm Carol Burns DPM Work Phone: [facility] 03-10-2025 16:14-0400 Body mass index (BMI) [Ratio] 47.35 kg/m2 Carol Burns DPM Work Phone: [facility] 03-10-2025 16:14-0400 Body weight 149.69 kg Carol Burns DPM Work Phone: [facility] 02-25-2025 13:05-0400 Diastolic blood pressure 63 mm[Hg] Arline Rouse [employer] Work Phone: [facility] 02-25-2025 13:05-0400 Heart rate 61 /min Arline Rouse [employer] Work Phone: [facility] 02-25-2025 13:05-0400 Respiratory rate 16 /min Arline Rouse [employer] Work Phone: [facility] 02-25-2025 13:05-0400 SaO2% (BldA) [Mass fraction] 95 % Arline Rouse [employer] Work Phone: [facility] 02-25-2025 13:05-0400 Systolic blood pressure 114 mm[Hg] Arline Rouse [employer] Work Phone: [facility] 02-25-2025 11:42-0400 Body height 177.8 cm Arline Rouse [employer] Work Phone: [facility] 02-25-2025 11:42-0400 Body weight 140.61 kg Arline Rouse [employer] Work Phone: [facility] 02-15-2025 13:00-0400 Body height 177.8 cm Carol Burns DPM Work Phone: [facility] 02-15-2025 13:00-0400 Body mass index (BMI) [Ratio] 47.35 kg/m2 Carol Burns DPM Work Phone: [facility] 02-15-2025 13:00-0400 Body weight 149.69 kg Carol Burns DPM Work Phone: [facility] 01-19-2025 11:01-0400 Body height 177.8 cm Carol Burns DPM Work Phone: [facility] 01-19-2025 11:01-0400 Body mass index (BMI) [Ratio] 47.35 kg/m2 Carol Burns DPM Work Phone: [facility] 01-19-2025 11:01-0400 Body weight 149.69 kg Carol Burns DPM Work Phone: [facility] 12-17-2024 13:43-0400 Body height 172.72 cm Arline Rouse [employer] Work Phone: [facility] 12-17-2024 13:43-0400 Body weight 158.8 kg Arline Rouse [employer] Work Phone: [facility] 12-17-2024 13:43-0400 Diastolic blood pressure 98 mm[Hg] Arline Nasim [employer] Work Phone: [facility] 12-17-2024 13:43-0400 Heart rate 70 /min Alrine Nasim [employer] Work Phone: [facility] 12-17-2024 13:43-0400 Respiratory rate 20 /min Arline Nasim [employer] Work Phone: [facility] 12-17-2024 13:43-0400 SaO2% (BldA) [Mass fraction] 97 % Arline Nasim [employer] Work Phone: [facility] 12-17-2024 13:43-0400 Systolic blood pressure 143 mm[Hg] Arline Nasim [employer] Work Phone: [facility] 11-16-2024 11:24-0400 Diastolic blood pressure 100 mm[Hg] Arline Nasim [employer] Work Phone: [facility] 11-16-2024 11:24-0400 Heart rate 64 /min Arline Nasim [employer] Work Phone: [facility] 11-16-2024 11:24-0400 Respiratory rate 18 /min Arline Nasim [employer] Work Phone: [facility] 11-16-2024 11:24-0400 SaO2% (BldA) [Mass fraction] 95 % Arline Nasim [employer] Work Phone: [facility] 11-16-2024 11:24-0400 Systolic blood pressure 158 mm[Hg] Arline Nasim [employer] Work Phone: [facility] 11-16-2024 11:18-0400 Body height 177.8 cm Arline Nasim [employer] Work Phone: [facility] 11-16-2024 11:18-0400 Body weight 149.68 kg Arline Nasim [employer] Work Phone: [facility] 05-01-2022 06:00-0400 Diastolic blood pressure 58 mm[Hg] [facility] 05-01-2022 06:00-0400 Heart rate 89 /min [facility] 05-01-2022 06:00-0400 Respiratory rate 20 /min [facility] 05-01-2022 06:00-0400 SaO2% (BldA) [Mass fraction] 91 % [facility] Comment on above: 2 L NC at baseline 05-01-2022 06:00-0400 Systolic blood pressure 86 mm[Hg] [facility] 04-12-2022 15:01-0400 Body temperature 98.3 [degF] MD Ayden Freeman Work Phone: [facility] 04-12-2022 15:01-0400 Diastolic blood pressure 68 mm[Hg] MD Ayden Freeman Work Phone: [facility] 04-12-2022 15:01-0400 Heart rate 90 /min MD Ayden Freeman Work Phone: [facility] 04-12-2022 15:01-0400 Respiratory rate 20 /min MD Ayden Freeman Work Phone: [facility] 04-12-2022 15:01-0400 SaO2% (BldA) [Mass fraction] 92 % MD Ayden Freeman Work Phone: [facility] 04-12-2022 15:01-0400 Systolic blood pressure 130 mm[Hg] MD Ayden Freeman Work Phone: [facility] 04-12-2022 10:48-0400 Body height 177.8 cm MD Ayden Freeman Work Phone: [facility] 04-12-2022 10:48-0400 Body weight 154.22 kg MD Ayden Freeman Work Phone: [facility] 04-09-2022 12:00-0400 Diastolic blood pressure 81 mm[Hg] MD Ayden Freeman Work Phone: [facility] 04-09-2022 12:00-0400 Heart rate 99 /min MD Ayden Freeman Work Phone: [facility] 04-09-2022 12:00-0400 Inhaled oxygen flow rate 2 L/min MD Ayden Freeman Work Phone: [facility] 04-09-2022 12:00-0400 Respiratory rate 18 /min MD Ayden Freeman Work Phone: [facility] 04-09-2022 12:00-0400 SaO2% (BldA) [Mass fraction] 98 % MD Ayden Freeman Work Phone: [facility] 04-09-2022 12:00-0400 Systolic blood pressure 127 mm[Hg] MD Ayden Freeman Work Phone: [facility] 04-09-2022 05:22-0400 Body weight 162 kg MD Ayden Freeman Work Phone: [facility] 04-08-2022 20:00-0400 Inhaled oxygen concentration 30 % MD Ayden Freeman Work Phone: [facility] 04-08-2022 14:56-0400 Body height 177.8 cm MD Ayden Freeman Work Phone: [facility] 04-08-2022 08:11-0400 Body temperature 98 [degF] MD Ayden Freeman Work Phone: [facility] 03-16-2022 11:59-0400 Diastolic blood pressure 90 mm[Hg] MD Ayden Freeman Work Phone: [facility] 03-16-2022 11:59-0400 Heart rate 95 /min MD Ayden Freeman Work Phone: [facility] 03-16-2022 11:59-0400 Respiratory rate 18 /min MD Ayden Freeman Work Phone: [facility] 03-16-2022 11:59-0400 SaO2% (BldA) [Mass fraction] 95 % MD Ayden Freeman Work Phone: [facility] 03-16-2022 11:59-0400 Systolic blood pressure 147 mm[Hg] MD Ayden Freeman Work Phone: [facility] 03-16-2022 08:07-0400 Body temperature 97.8 [degF] MD Ayden Freeman Work Phone: [facility] 03-16-2022 06:00-0400 Body weight 163.5 kg MD Ayden Freeman Work Phone: [facility] 03-14-2022 17:24-0400 Body height 177.8 cm MD Ayden Freeman Work Phone: [facility] 03-14-2022 16:00-0400 Inhaled oxygen flow rate 1 L/min MD Ayden Freeman Work Phone: [facility] Encounters Encounter Date Encounter Type Care Provider Facility Start: 03-25-2025 End: 03-25-2025 ambulatory Arline Rouse [employer] [facility] Work Phone: Start: 03-25-2025 End: 03-25-2025 Departed Referred Arline Rouse [employer] [facility] Start: 03-23-2025 End: 03-23-2025 Bamboo flowsheet Sylvia Lui DO Work Phone: [facility] Start: 03-23-2025 End: 03-23-2025 Bamboo flowsheet Sylvia Lui DO Work Phone: [facility] Start: 03-23-2025 End: 03-23-2025 Clinical Support Sylvia Lui DO Work Phone: [facility] Comment on above: Retinal Injection Start: 03-10-2025 End: 03-10-2025 Patient encounter procedure Carol Burns DPM Work Phone: [facility] Comment on above: Diabetic polyneuropa thy associated with type 2 diabetes mellitus (HCC) (Primary Dx); Type II diabetes mellitus with peripheral circulatory disorder (HCC); Encounter for long-term (current) use of insulin (HCC) Start: 03-10-2025 End: 03-10-2025 ambulatory CAROL BURNS Not Available Start: 03-10-2025 End: 03-10-2025 Bamboo flowsheet Carol Burns DPM Work Phone: [facility] Start: 03-10-2025 End: 03-10-2025 Bamboo flowsheet Carol Burns DPM Work Phone: [facility] Start: 03-08-2025 End: 03-08-2025 Bamboo flowsheet Sylvia Lui DO Work Phone: [facility] Start: 03-08-2025 End: 03-08-2025 Bamboo flowsheet Sylvia Lui DO Work Phone: [facility] Start: 03-08-2025 End: 03-08-2025 ambulatory SYLVIA LUI Not Available Start: 03-08-2025 End: 03-08-2025 Office outpatient new 45 minutes Sylvia Lui DO Work Phone: [facility] Comment on above: Age-related nuclear cataract of both eyes (Primary Dx); 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 (HCC); 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 associated with type 2 diabetes mellitus (HCC) Start: 02-25-2025 End: 02-25-2025 Admission to same day surgery center Margot Titus MD -[facility] Work Phone: Start: 02-25-2025 End: 02-25-2025 ambulatory Arline Rouse [employer] Work Phone: [facility] Work Phone: Start: 02-15-2025 End: 02-15-2025 Bamboo flowsheet Carol Burns DPM Work Phone: [facility] Start: 02-15-2025 End: 02-15-2025 Bamboo flowsheet Carol Burns DPM Work Phone: [facility] Start: 02-15-2025 End: 02-15-2025 Postop follow up visit related to original px Carol Burns DPM Work Phone: [facility] Comment on above: Diabetic polyneuropa thy associated with type 2 diabetes mellitus (HCC) (Primary Dx); Type II diabetes mellitus with peripheral circulatory disorder (HCC); Encounter for long-term (current) use of insulin (HCC) Start: 02-15-2025 End: 02-15-2025 ambulatory CAROL BURNS Not Available Start: 01-19-2025 End: 01-19-2025 Bamboo flowsheet Carol Burns DPM Work Phone: [facility] Start: 01-19-2025 End: 01-19-2025 Bamboo flowsheet Carol Burns DPM Work Phone: [facility] Start: 01-19-2025 End: 01-19-2025 Office outpatient new 30 minutes Carol Burns DPM Work Phone: [facility] Comment on above: Dermatophytosis of n ail (Primary Dx); Dystrophic nail; Diabetic polyneuropathy associated with type 2 diabetes mellitus (CMS/HCC); Type II diabetes mellitus with peripheral circulatory disorder (CMS/HCC); Encounter for long-term (current) use of insulin (CMS/HCC) Start: 01-19-2025 End: 01-19-2025 ambulatory CAROL BURNS Not Available Start: 12-27-2024 End: 12-27-2024 ambulatory Arline Rouse [employer] Work Phone: [facility] Work Phone: Start: 12-27-2024 End: 12-27-2024 Departed Referred Lottie Washington PA-C -[facility] [place] Start: 12-17-2024 End: 12-17-2024 Departed Referred Lottie Washington PA-C -Pre-Surgical Testing Work Phone: Start: 12-17-2024 End: 12-17-2024 Patient encounter procedure Arline Nasim [employer] Work Phone: [facility] Work Phone: Start: 12-17-2024 End: 12-17-2024 ambulatory Arline Norah Balderramamer [employer] Work Phone: [facility] Work Phone: Start: 11-18-2024 End: 11-18-2024 ambulatory [facility] Start: 11-16-2024 End: 11-16-2024 Patient encounter procedure Arline Nasim [employer] Work Phone: [facility] [place] Work Phone: Start: 11-16-2024 End: 11-16-2024 ambulatory Arlinesteven Almazan Nasim [employer] Work Phone: [facility] Work Phone: Start: 10-28-2024 End: 10-28-2024 ambulatory [facility] Start: 10-28-2024 End: 10-28-2024 Encounter for other preprocedural examination [facility] Start: 04-05-2024 ambulatory Facility:Óscar Underwood Start: 03-02-2024 ambulatory Facility:Tirso Gabriel Start: 12-19-2022 End: 12-20-[address] AYDEN FREEMAN Facility:[facility]1 Start: 06-05-2022 End: 06-06-[address] AYDEN FREEMAN Facility:[facility] Start: 05-29-2022 End: 06-01-[address] AYDEN FREEMAN Facility:[facility] Start: 05-17-2022 End: 05-17-[address] CAROL YIP Facility:[facility] Start: 05-03-2022 ambulatory [facility] Start: 05-01-2022 End: 05-04-2022 ambulatory UNKNOWN PROVIDER Facility:[facility] Start: 05-01-2022 End: 05-01-[address] [facility] Triage, Treat and Transport Start: 05-01-2022 End: 05-01-2022 Emergency department patient visit [facility] Emergency Triage, Treat and Transport Comment on above: Arrived Start: 04-24-2022 End: 04-30-2022 ambulatory UNKNOWN PROVIDER Facility:[facility] Start: 04-12-2022 End: 04-12-2022 Emergency department patient visit MD Ayden Freeman Work Phone: [facility] Start: 04-10-2022 End: 04-17-2022 ambulatory UNKNOWN PROVIDER Facility:[facility] Start: 04-02-2022 End: 04-09-2022 Evaluation and management of inpatient MD Ayden Freeman Work Phone: [facility] [place] [facility] Start: 03-15-[address] AYDEN Villafana ity:H1 Start: 03-14-2022 End: 03-14-2022 Patient encounter procedure JEFF CARLOS [facility] Start: 03-14-2022 End: 03-16-2022 Evaluation and management of inpatient MD Ayden Freeman Work Phone: [facility] [place] [facility] Start: 02-15-[address] AYDEN Villafana ity:[facility]1 Start: 02-01-2022 End: 02-01-2022 ambulatory HINA DIOP . Facility:[facility]1 Start: 01-24-2022 End: 01-24-[address] CAROL YIP Facility:[facility] Start: 01-18-2022 End: 01-19-[address] MASON CASTRO Facility:[facility]1 Procedures Date Procedure Procedure Detail Performing Clinician Start: 03-23-2025 Intravitreal njx pharmacologic agt spx Sylvia Lui DO Work Phone: Start: 03-08-2025 Computerized ophthal ben imaging retina Sylvia Iris Lui DO Work Phone: Start: 02-25-2025 Computerized axial tomography of lumbar spine with contrast Arlinesteven Balderramamer [employer] Work Phone: Start: 02-25-2025 Myelogram Arline [employer] spenser [employer] Work Phone: Start: 12-19-[address] AYDEN FRIEND Comment on above: Performed By: #### P [facility] #### [facility] [address] [place] [address] Dr. Ladan Diehl Start: 04-12-2022 Plain chest X-ray MD Mari Fereman Work Phone: Start: 04-02-2022 CT angiography of [...] Start: 04-21-2025 End: 04-21-2025 Patient encounter procedure [facility] Start: 04-05-2025 End: 04-05-2025 Patient encounter procedure 04/05/2025 3:15 PM EDT Office Visit [facility] [address] [place] [phone] Carol Burns DPM [address] [place] [address] [facility] Start: 03-25-2025 Urine culture [facility] Start: 03-25-2025 Bacteria identified in Urine by Culture Urine Culture [facility] Start: 03-11-2025 End: 03-11-2025 Clinical Support 03/11/2025 10:45 AM EDT Clinical Support [facility] [address] [place] [phone] Sylvia Lui DO [address] [place] [address] [facility] Start: 03-10-2025 End: 03-10-2025 Patient encounter procedure [facility] Comment on above: Arrived Start: 03-01-2025 End: 03-01-2025 Patient encounter procedure 03/01/2025 1:30 PM EDT Office Visit [facility] [address] [place] [phone] Sylvia Lui, DO [address] [place] [address] [facility] Start: 02-25-2025 [facility] Start: 01-19-2025 End: 01-19-2025 Patient encounter procedure 01/19/2025 10:45 AM EDT Office Visit [facility] [address] [place] [phone] Carol Burns DPM [address] [place] [address] Arrived [facility] Comment on above: Arrived Start: 12-27-2024 OR CAT/MRI W/ IV SEDATION (Not Applicable) OR CAT/MRI W/ IV SEDATION (Not Applicable) [facility] Start: 09-18-2024 Glaucoma screening Diabetes: R etinopathy Screening [facility] Start: 05-11-2022 Influenza vaccination Influenza Vacc ine (#1) [facility] Start: 04-12-2022 Plain [facility] Start: 04-12-2022 End: 04-12-2022 Emergency department patient visit Departed Emergency [facility]gency [facility] Start: 04-09-2022 [facility] Work Phone: Start: 04-09-2022 [facility] Work Phone: Start: 04-02-2022 End: 04-09-2022 Evaluation and management of inpatient Abrasion of elbow [facility] Start: 04-02-2022 CT angiography of thorax CT angio chest PE protocol [facility] Start: 04-02-2022 Hospital admission [facility] Work Phone: Start: 04-02-2022 X-ray of left knee XR knee LT 2V [facility] Start: 04-02-2022 Plain chest X-ray XR chest 1V portab le [facility] Start: 04-02-2022 Plain X-ray of left hip XR hip LT min 2V(w/wo pelvis)* [facility] Start: 04-02-2022 Plain X-ray of left elbow XR elbow LT min 3V* [facility] Start: 03-16-2022 [facility] Work Phone: Start: 03-14-2022 Referral to hair boiler [facility] Work Phone: Start: 03-14-2022 Hospital admission [facility] Work Phone: Start: 12-09-2021 Welcome to Medicare Visit (G0402) Welcome to Medicare Visit (G0402) [facility] Start: 11-28-2007 Measurement of occul t blood in single stool specimen [facility] Start: 11-28-2007 Screening for malign ant neoplasm of colon CRC Screening [facility] Start: 11-28-2007 Shingles (RZV) Vacci ne (1 of 2) Shingles (RZV) Vaccine (1 of 2) [facility] Start: 1992 Lipid panel Cholesterol [facility] Start: 1976 Urine screening for protein Diabetes: Urine Protein Screening [facility] Start: 11-28-1975 Hepatitis C screening Hepatitis C An tibody [facility] Start: 11-28-1975 Tetanus + diphtheria + acellular pertussis vaccine (product) [facility] Start: 1972 HIV screening HIV Test [facility] Start: 05-29-1958 COVID-19 Vaccine (#1) COVID-19 Vacci ne (#1) [facility] Start: 1957 Hemoglobin A1c measurement Diabetes: Hemoglobin A1C [facility] Start: 1957 Medicare Annual Wellness (AWV) Medicare Annual Wellness (AWV) [facility] Start: 1957 Screening for malign ant neoplasm of colon [facility] Patient Education [facility] Work Phone: Patient referral [facility] Work Phone: Immunizations Immunization Date Immunization Notes Care Provider [facility] 05-12-2024 influenza, high dose seasonal, preservative-free Carol Burns DPM Work Phone: [facility] 05-06-2023 Influenza, Seasonal, Quadrivalent, Adjuvanted Carol Burns DPM Work Phone: [facility] 04-07-2023 Pneumococcal Conjuga te PCV 20 Carol Burns DPM Work Phone: [facility] 05-11-2021 Seasonal, quadrivale nt, recombinant, injectable influenza vaccine, preservative free Carol Burns DPM Work Phone: [facility] 05-13-2019 Seasonal, quadrivale nt, recombinant, injectable influenza vaccine, preservative free Carol Burns DPM Work Phone: [facility] 04-24-2012 influenza, seasonal, injectable, preservative free Carol Burns DPM Work Phone: [facility] Payers Date Payer Category Payer Self-pay [id number] 2024 Medicare (Managed Care) [employer] HERNANDEZ AD[employer]AGE [id number] 2023 Unknown [id number] 2021 Medicare UNITED HEALTH[employer] E - MEDICARE UHC HMO SNP [id number] 2021-Present [phone] [address] [address] [place] [address] Medicare [id number] 2021 Private Health Insurance [id number] 2020 Medicaid MEDICAID [facility] [id number] 2017 Unknown [id number] 1959 Medicaid [id number] 1959 Medicare [id number] 1957 Unknown [id number] 2.16.840.1.365135.3.579.2. 732 1957 Unknown [id number] 2.16.840.1.866485.3.579.2. 732 1957 Unknown [id number] 2.16.840.1.864837.3.579.2. 732 1957 Unknown [id number] 2.16.840.1.961059.3.579.2. 732 1957 Unknown [id number] 2.16.840.1.320703.3.579.2. 593 1957 Unknown [id number] 2.16.840.1.925629.3.579.2. 593 1957 Unknown [id number] 2.16.840.1.899594.3.579.2. 593 1957 Unknown [id number] 2.16.840.1.617642.3.579.2. 593 1957 Unknown [id number] 2.16.840.1.983063.3.579.2. 593 1957 Unknown [id number] 2.16.840.1.966908.3.579.2. 593 1957 Unknown [id number] 2.16.840.1.212973.3.579.2. 593 1957 Unknown [id number] 2.16.840.1.822976.3.579.2. 593 1957 Unknown [id number] 2.0.1.668286.3.579.2. 593 1957 Unknown [id number] 2.0.1.039217.3.579.2. 1259 1957 Unknown [id number] 2.840.1.155302.3.579.2. 1258 1957 Unknown [id number] 2.0.1.212265.3.579.2. 1258 1957 Unknown [id number] 2.0.1.137388.3.579.2. 1258 1957 Unknown [id number] 2.0.1.840700.3.579.2. 1259 Medicare Medicare [id number] Medicare Medicare Psych-IP Part A [id number] Medicare [place] PFFS [id number] Medicare [place] [employer] MCR [id number] Unknown [facility] [id number] Unknown [id number] .1.053536.3.579.2. 531 Unknown [id number] 09.26.830.1.956406.3.579.2. 531 Unknown [id number] .0.1.886665.3.579.2. 531 Unknown [id number] 2.0.1.854817.3.579.2. 531 Unknown [id number] 2.0.1.239653.3.579.2. 531 Social History Date Type Detail Facility Tobacco smoking status No Smoking Status Entered [facility] Start: 10-01-2023 End: 03-10-2025 Sex Assigned At Male [facility] Start: 04-02-2022 End: 04-12-2022 Tobacco smoking status NHIS Never smoked tobacco (finding) [facility] Start: 1955 Sex Assigned At Male [facility] Tobacco smoking status NHIS Tobacco smoking consumption unknown [facility] Start: 1955 Sex Assigned At Not on file [facility] Start: 11-17-2024 End: 12-18-2024 Sex Male (finding) [facility] Start: 09-14-2023 End: 03-08-2025 Tobacco use and [...] USE 1 EACH DAY A S DIRECTED [id number] Start: 06-14-2024 Lancets-Blood Glucose Strips (Gojji Lancet-Glucose [...] 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 Work Phone: 03-16-2022 Functional status Patient at [facility] Work Phone: Mental Status Date Assessment Result Facility 04-09-2022 Cognitive function Cognitive Sta tus Patient at [facility] Work Phone: 03-16-2022 Cognitive function Cognitive Sta tus Patient at [facility] Work Phone: Clinical Notes 2021 to 03-23-2025 [...] 1.25 MG/0.05ML Route: Intravitreal, Site: Right Eye [facility]: [address]-6, Lot: [id number], Expiration date: 04/18/2025 Post-op Post injection exam [...] increased pain, redness, decreased vision or concerns. [facility] 03-23-2025 History of Present illness Narrative Images [...] 1.25 MG/0.05ML Route: Intravitreal, Site: Right Eye [facility]: [address]-1, Lot: [id number], Expiration date: 04/18/2025 Post-op Post injection exam [...] vision or concerns. documented in this encounter [facility] 03-10-2025 History of Present illness Narrative Images [...] MINI PEN NEEDLES) 31G x 5 mm [facility], USE 1 EACH DAY DIRECTED, Disp: 100 [...] Carol Burns DPM documented in this encounter [facility] 03-10-2025 Instructions Carol Burns DPM - 03/10/2025 4:00 PM EDT Acclimating instructions as noted documented in this encounter [facility] 03-08-2025 Note Right Eye Quality was good. Scan locations included subfoveal. Progression has worsened. Findings include abnormal foveal contour, intraretinal fluid, subretinal fluid. Left Eye Quality was good. Scan locations included subfoveal. Progression has worsened. Findings include abnormal foveal contour, intraretinal fluid, subretinal fluid. [facility] 03-08-2025 History of Present illness Narrative Images [...] start with Avastin. documented in this encounter [facility] 02-15-2025 History of Present illness Narrative Images [...] MINI PEN NEEDLES) 31G x 5 mm [facility], USE 1 EACH DAY DIRECTED, Disp: 100 [...] Measurements obtained in the weight-bearing position utilizing Brannock device. Patient education and counseling relative to [...] Carol Burns DPM documented in this encounter [facility] 02-15-2025 Instructions Carol Burns DPM - 02/15/2025 1:00 PM EDT As noted documented in this encounter [facility] 01-19-2025 History of Present illness Narrative Images [...] MINI PEN NEEDLES) 31G x 5 mm [facility], USE 1 EACH DAY DIRECTED, Disp: 100 [...] Carol Burns DPM documented in this encounter [facility] 01-19-2025 Instructions Carol Burns DPM - 01/19/2025 10:45 AM EDT As noted documented in this encounter [facility] 10-28-2024 Note [facility] Cardiology Clinic Note Chief Complaint: New patient here to re-establish care. He had heart cath back in 2009 at [facility]. He was diagnosed with afib in February [...] until further cardiovascular testing can be completed. Barb Hays MD, MPH, [facility], [facility], [facility] Interventional Cardiology Pager Email: [email or web address] 05-03-2022 History of Present illness Narrative Images from the original note were not included. EMERGENCY TRIAGE, TREAT AND TRANSPORT (ET3) DOCUMENTATION OF TELEHEALTH VISIT Date / Time: 05/01/2022 / 0600 Name: Evelin Patterson : 1955 SSN: [id number] EMS Agency: [facility] [x] Verbal consent obtained [] [...] Peter Molina DO documented in this encounter [facility] 04-08-2022 Progress note Note Date/Time April 08, 2022 1:38pm [facility] [address] [place] [address] Hospitalist Progress Note Signed Patient: Evelin Patterson MR#: [id number] : 1955 Acct:[id number] Age/Sex: 66 / M Adm Date: 2 Loc: 3T Room: [address] [place] [address] Type: ADM INOo Attending Dr: Lupe Hernandez [...] Administration Fever or Pain Albuterol 2 puff 08/23/22 19:34 Albuterol Hfa 60 Puff/8 Gram Inhaler [...] Hypothyroidism: Plan Patient currently awaiting placement to halfway facility. Remains in normal sinus rhythm. He [...] <Electronically signed by Lupe Hernandez MD> 04/08/221337 [facility] Work Phone: 1(729) 415-380808-28-2022 Discharge summary Author Luke Moran [facility] April 07, 2022 4:16pm Note Date/Time April 05, 2022 10 :05am [facility] [address] [place] [address] Discharge Summary Signed with Addenda Patient: Evelin Patterson MR#: [id number] : 1955 Acct:[id number] Age/Sex: 66 / M Adm Date: 2 Loc: 3T Room: [address] [place] [address]: Luke Moran MD Copies to: [...] discharged home in stable condition to a halfway facility. Medical therapy was adjusted as noted [...] 10:24: POC Glucose 271 04/03/22 07:34: Free Hernandez LC, Quant 93.9 H, Free Lambda LC, Quant 61.6 H, Free Hernandez/Lambda Ratio 1.52 Exam Physical Exam Vital Signs: Temp Pulse Resp BP Pulse Ox O2 Del Method O2 Flow Rate 97.9 F 85 20 134/76 90 L Room Air 2 04/05/22 08:00 04/05/22 08:00 04/05/22 08:00 04/05/22 08:00 04/05/22 08:00 04/05/22 08:00 04/05/22 08:00 FiO2 30 04/04/22 22:34 Discharge Plan Discharge Plan Patient Disposition: Nursing Home Facility Activity: Ambulate as Tolerated Diet: Diabetic and Low-Sodium Additional Instructions: Please have company providing CPAP machine fit the patient with a mask that he can tolerate. Use a CPAP of 8 whenever asleep until the sleep study performed. Nursing Home Facility to manage care: - Full [...] Instructions: Sliding Scale ACHS Other Ambulatory Orders: APPLICATION SPECIALIST polysom procedure (Routine) Timeframe: 3 Weeks Location: Determined by Patient Ordered By: Luke Moran Follow Up: [facility] [Outside] ([facility] or Central Scheduling will call you to arrange date/time for sleep study. ) Documented By: Luke Moran MD 04/07/22 0959 Signed By: <Electronically signed by Luke Moran MD> 04/07/22 7863 [facility] Work Phone: 1(624) 909-724708-27-2022 Progress note Author Luke Moran [facility] April 06, 2022 2:50pm Note Date/Time April 06, 2022 2: 50pm [facility] [address] [place] [address] Hospitalist Progress Note Signed Patient: Evelin Patterson MR#: [id number] : 1955 Acct:[id number] Age/Sex: 66 / M Adm Date: 2 Loc: 3T Room: [address] [place] [address] Type: ADM INOo Attending Dr: Luke Moran [...] Moran MD> 04/06/22 1450 [facility] Work Phone: 1(295) 342-731908-25-2022 Progress note Author Luke Moran [facility] April 04, 2022 4:25pm Note Date/Time April 04, 2022 4: 25pm [facility] [address] [place] [address] Hospitalist Progress Note Signed Patient: Evelin Patterson MR#: [id number] : 1955 Acct:[id number] Age/Sex: 66 / M Adm Date: 2 Loc: Room: [address] [place] [address] Type: ADM INOo Attending Dr: Luke Moran [...] <Electronically signed by Luke Moran MD> 04/04/22 1628 [facility] Work Phone: 1(313) 649-466708-24-2022 Progress note Author Luke Moran [facility] April 03, 2022 2:05pm Note Date/Time April 03, 2022 2: 05pm [facility] [address] [place] [address] Hospitalist Progress Note Signed Patient: Evelin Patterson MR#: [id number] : 1955 Acct:[id number] Age/Sex: 66 / M Adm Date: 2 Loc: Room: [address] [place] [address] Type: ADM INOo Attending Dr: Luke Moran [...] By: <Electronically signed by Luke Moran MD> 04/03/221404 [facility] Work Phone: 1(820) 840-158908-23-2022 History and physical note Author Luke Moran [facility] April 02, 2022 7:48pm Note Date/Time April 02, 2022 7: 45pm [facility] [address] [place] [address] Hospitalist H&P Signed Patient: Evelin Patterson MR#: [id number] : 1955 Acct:[id number] Age/Sex: 66 / M Adm Date: 2 Loc: ER Room: Type: [facility] ER Attending Dr: Copies to: [...] Type: None Social History Comments: Lives in [facility] in [facility] Medications and Allergies Allergies metformin [...] % (Auto) 8.7 % (.) 04/02/22 17:51 [place] % (Auto) 12.2 % (.) 04/02/22 17:51 Eos % (Auto) 2.4 % (.) 04/02/22 17:51 Baso % (Auto) 0.6 % (.) 04/02/22 17:51 Neut # (Auto) 6.4 x10E3/uL (1.8-7.7) 04/02/22 17:51 Lymph # (Auto) 0.7 x10E3/uL (1.00-4.8) L 04/02/22 17:51 [place] # (Auto) 1.0 x10E3/uL (0.0-0.8) H 04/02/22 [...] Luke Moran MD> 04/02/[facility] Work Phone: 1(869) 501-946208-06-2022 Discharge summary Author Xin Phan [facility] March 16, 2022 9:37am Note Date/Time March 16, 2022 9:3 7am [facility] [address] [place] [address] Discharge Summary Signed Patient: Evelin Patterson MR#: [id number] : 1955 Acct:[id number] Age/Sex: 66 / M Adm Date: 2 Loc: Room: [address] [place] [address]: Xin Phan MD Copies to: [...] anxiety and depression who was transferred from [facility] for acute kidney injury.? Patient presented with generalized weakness and disorientation at [facility]. He was noted to have blood [...] headache or dizziness.? No fevers Paperwork from [facility] reviewed, chest x-ray with no acute cardiopulmonary process.? Sodium 129.? Potassium 3.3.? Creatinine 2.52.? WBC 6.8.? Hemoglobin 12.5.? Glucose 4.34.? Patient will be admitted by the hospitalist team for further evaluation and management. Patient was positive for COVID, patient was alert oriented x3 at [facility], patient states that he has been [...] untreated sleep apnea Instructions: Blood Glucose Monitoring, [facility] COVID-19 Discharge Instructions Prescriptions: New Levemir FlexTouch [...] [facility] Work Phone: [phone]) 546-295508-05-2022 Progress note Author Sarah Osuna [facility] March 15, 2022 3:43pm Note Date/Time March 15, 2022 3:3 7pm [facility] [address] [place] [address] Nephrology Progress Note Signed Patient: Evelin Patterson MR#: [id number] : 1955 Acct:[id number] Age/Sex: 66 / M Adm Date: 2 Loc: Room: [address] [place] [address] Type: ADM IN Attending Dr: Xin Phan MD Copies to: ~ Date of Service: 03/15/2022 Subjective Subjective Narrative: This is 66-year-old male patient with a past medical history of morbid obesity, endocarditis, paroxysmal A. fib, diabetes type 2, anxiety and depression and chronic kidney disease stage III. Patient presented to [facility] with feeling weak and disoriented for 2 weeks which has gotten worse. Patient has been having cough with decreased appetite and loss of taste for a week. Lab at [facility] shows acute kidney injury with creatinine up to 4.3 mg/dL along with hyperglycemia with initial blood glucose level more than 400. Patient's blood pressure was in the 80s at [facility]. Patient was given IV fluid and [...] Tablet) 500 mg PO DAILY [facility] Stop: 03/14/23 08:59 Last Admin: 03/15/22 08:34 Dose: 500 mg Dexamethasone 2 mg/ (Dexamethasone 4 mg) 6 mg PO DAILY [facility] Stop: 03/22/23 08:59 Last Admin: 03/15/22 08:34 [...] Ml) 1,000 mls @ 100 mls/hr IV .[id number] Stop: 03/14/23 01:59 Last Admin: 03/15/22 06:46 Dose: 100 mls/hr Insulin Aspart (Insulin Aspart 300 Units/3 Ml Insuln.Pen) 0 units SUBCUT TID.WM.HS [facility]; Protocol Stop: 03/14/23 07:59 Last Admin: 03/15/22 12:06 Dose: 9 units Insulin Detemir (Insulin Detemir 300 Units/3 Ml Insuln.Pen) 40 units SUBCUT DAILY.WITH.BKFAST [facility] Stop: 03/16/23 07:59 Zinc Sulfate (Zinc Sulfate 220 Mg Capsule) 220 mg PO DAILY [facility] Stop: 03/14/23 08:59 Last Admin: 03/15/22 08:34 [...] <Electronically signed by Sarah Osuna MD> 03/15/22 9141 [facility] Work Phone: 1([phone]) 742-872408-05-2022 Progress note Author Xin Phan [facility] March 15, 2022 12:44pm Note Date/Time March 15, 2022 12: 44pm [facility] [address] [place] [address] Hospitalist Progress Note Signed Patient: Evelin Patterson MR#: [id number] : 1955 Acct:[id number] Age/Sex: 66 / M Adm Date: 2 Loc: Room: [address] [place] [address] Type: ADM IN Attending Dr: Xin Phan MD Copies to: ~ Date of Service: 03/15/2022 Subjective Subjective Narrative: Patient is a 66-year-old male, with a PMHx of Morbid obesity, endocarditis in August of this year, atrial fibrillation, type 2 diabetes, hypertension, liver cirrhosis, anxiety and depression who was transferred from [facility] for acute kidney injury. Patient presented with generalized weakness and disorientation at [facility]. He was noted to have blood [...] headache or dizziness. No fevers Paperwork from [facility] reviewed, chest x-ray with no acute [...] secondary to poor oral intake. Presented at [facility] with low blood pressures in the 80s. ?Creatinine at [facility] 4.34. Baseline creatinine ~1.4 - Nephrology has [...] noncompliance to diabetic diet ?Blood sugar at [facility] was in the 400s ? Will [...] <Electronically signed by Xin Phan MD> 03/15/22 8[facility] Work Phone: 1([phone]) 649-718708-04-2022 Progress note Author Renato Looney [facility] March 14, 2022 2:14pm Note Date/Time March 14, 2022 2:1 4pm [facility] [address] [place] [address] Progress Note Signed Patient: Evelin Patterson MR#: [id number] : 1955 Acct:[id number] Age/Sex: 66 / M Adm Date: 2 Loc: Room: [address] [place] [address] Type: ADM IN Attending Dr: Renato Looney MD Copies to: ~ Date of Service: 03/14/2022 Progress Narrative Note PROGRESS NOTE Progress Note: Patient seen and evaluated by estate planning paralegal early this morning and also by myself. Briefly, patient is a 66-year-old male past medical history significant for obesity, atrial fibrillation, hypertension, diabetes, liver cirrhosis, mood disorder and recent endocarditis infection who presented [facility] due to generalized weakness found to have COVID-19 and acute kidney injury and was transferred to [facility] for further evaluation and management. [...] <Electronically signed by Renato Looney MD> 03/14/22 2254 [facility] Work Phone: [phone]) [phone] Consult note Author Sarah Osuna [facility] March 14, 2022 12:30pm Note Date/Time March 14, 2022 12: 30pm [facility] [address] [place] [address] Nephrology Consult Note Signed Patient: Evelin Patterson MR#: [id number] : 1955 Acct:[id number] Age/Sex: 66 / M Adm Date: 2 Loc: Room: [address] [place] [address] Type: ADM IN Attending Dr: Renato Looney [...] kidney disease stage III. Patient presented to [facility] with feeling weak and disoriented for 2 weeks which has gotten worse. Patient has been having cough with decreased appetite and loss of taste for a week. Lab at [facility] shows acute kidney injury with creatinine up to 4.3 mg/dL along with hyperglycemia with initial blood glucose level more than 400. Patient's blood pressure was in the 80s at [facility]. Patient was given IV fluid and [...] Type: None Social History Comments: Lives in [facility] in [facility] Medications & Allergies Allergies metformin [...] mg) 6 mg PO DAILY [facility] Stop: 03/22/23 08:59 Last Admin: 03/14/22 08:33 [...] Ml) 1,000 mls @ 100 mls/hr IV .[id number] Stop: 03/14/23 01:59 Last Admin: 03/14/22 03:26 Dose: 100 mls/hr Insulin Aspart (Insulin Aspart 300 Units/3 Ml Insuln.Pen) 0 units SUBCUT TID.WM.HS [facility]; Protocol Stop: 03/14/23 07:59 Last Admin: 03/14/22 12:06 Dose: Not Given Insulin Detemir (Insulin Detemir 300 Units/3 Ml Insuln.Pen) 35 units SUBCUT DAILY.WITH.BKFAST [facility] Stop: 03/14/23 07:59 Last Admin: 03/14/22 08:34 Dose: 35 units Zinc Sulfate (Zinc Sulfate 220 Mg Capsule) 220 mg PO DAILY [facility] Stop: 03/14/23 08:59 Last Admin: 03/14/22 08:34 [...] Michael Tinajero M.D.03/14/2022 8:24 AM Dictation Location: [place] [address] Any impression(s) listed above is documentation that [...] question Documented By: Sarah Osuna MD 03/14/22 9052 Signed By: <Electronically signed by Sarah Osuna MD> 03/14/22 7791 [facility] Work Phone: [phone]) 850-314308-04-2022 History and physical note Author Mary Jane Riley [facility] March 14, 2022 6:40am Note Date/Time March 14, 2022 2:0 2am [facility] [address] [place] [address] Hospitalist H&P Signed Patient: Evelin Patterson MR#: [id number] : 1955 Acct:[id number] Age/Sex: 66 / M Adm Date: 2 Loc: Room: [address] [place] [address] Type: ADM IN Attending Dr: Mary Jane Hanna MD Copies to: MD Leah Marin APRN Marc Naderer, MD~ HPI DATE OF EXAMINATION: 03/14/22 CHIEF COMPLAINT: FRANC HISTORY OF PRESENT ILLNESS: Patient is a 66-year-old male, with a PMHx of Morbid obesity, endocarditis in August of this year, atrial fibrillation, type 2 diabetes, hypertension, liver cirrhosis, anxiety and depression who was transferred from [facility] for acute kidney injury. Patient presented with generalized weakness and disorientation at [facility]. He was noted to have blood [...] headache or dizziness. No fevers Paperwork from [facility] reviewed, chest x-ray with no acute cardiopulmonary process. Sodium 129. Potassium 3.3. Creatinine 2.52. WBC 6.8. Hemoglobin 12.5. Glucose 4.34. Patient will be admitted by the hospitalist team for further evaluation and management. Review of Systems Review of Systems Review of systems: 10 point review of systems obtained, negative unless noted in the HPI or below [facility] Medical History Abdominal mass Anxiety Arthritis Back pain Cirrhosis Colonoscopy planned Deviated nasal septum Diabetes mellitus, type 2 Eczema History of left heart catheterization Pneumonia Surgical History History of cholecystectomy History of hydrocelectomy History of lithotripsy History of nasal surgery Family History Mother Cancer Social History Smoking Status: Never smoker Substance Use Type: None Social History Comments: Lives in [facility] in [facility] Medications and Allergies Allergies metformin [...] secondary to poor oral intake. Presented at [facility] with low blood pressures in the 80s. ?Creatinine at [facility] 4.34. Baseline creatinine ~1.4 ?Urine sodium, creatinine, urea pending ? Urine output monitoring ? Start IV fluids ? Hold home lisinopril and renally adjust medications ?Consider renal ultrasound if no improvement ? Nephrology consult ?Monitor BMP COVID-19 positive -unvaccinated. ? Presented with productive cough, hypoxia, loss of taste and generalized weakness ? Afebrile, no leukocytosis ? Chest x-ray from [facility] did not show any acute cardiopulmonary [...] noncompliance to diabetic diet ?Blood sugar at [facility] was in the 400s ?Basal insulin [...] the plan of care and confirmed the resident's/financial internship/medical student's dictation/written note. Patient is a [...] [facility] Work Phone: 1(631) 837-594704-19-2022 Progress note Author Lupe Hernandez [facility] April 09, 2022 3:32pm Note Date/Time April 09, 2022 1: 08pm [facility] [address] [place] [address] Hospitalist Progress Note Signed with Addenda Patient: Evelin Patterson MR#: [id number] : 1955 Acct:[id number] Age/Sex: 66 / M Adm Date: 2 Loc: Room: [address] [place] [address] Type: DIS INOo Attending Dr: Lupe Hernandez MD Copies to: ~ ADDENDUM1 Patient was personally seen by me on the day of encounter, reviewed his history and performed long elements of exam and formulated the plan of care and confirmedthe residents note below. Unfortunately patient has been denied by insurance for halfway facility after peer to peer. He will [...] to thrive, paroxysmal A. fib, CKD 3, ehf-cgeuagq-ebhteafyu diabetes, CHF is being monitored on the floor while a xehr-gk-lwqd was had with regards to the patient's discharge to a halfway facility. Insurance company has denied this coverage [...] agreed the patient would do well at halfway facility. Documented By: Allen Perez DO, RES 2 1302 Signed By: <Electronically signed by DO TAMMIE Perez> 04/09/22 1308 <Electronically signed by Lupe Hernandez MD> 04/09/22 1531 [facility] Work Phone: Discharge summary Author Luke Moran [facility] April 07, 2022 4:16pm Note Date/Time April 05, 2022 10 :05am [facility] [address] [place] [address] Discharge Summary Signed with Addenda Patient: Evelin Patterson MR#: [id number] : 1955 Acct:[id number] Age/Sex: 66 / M Adm Date: 2 Loc: Room: [address] [place] [address]: Luke Moran MD Copies to: [...] discharged home in stable condition to a halfway facility. Medical therapy was adjusted as noted [...] 10:24: POC Glucose 271 04/03/22 07:34: Free Hernandez LC, Quant 93.9 H, Free Lambda LC, Quant 61.6 H, Free Hernandez/Lambda Ratio 1.52 Exam Physical Exam Vital Signs: Temp Pulse Resp BP Pulse Ox O2 Del Method O2 Flow Rate 97.9 F 85 20 134/76 90 L Room Air 2 04/05/22 08:00 04/05/22 08:00 04/05/22 08:00 04/05/22 08:00 04/05/22 08:00 04/05/22 08:00 04/05/22 08:00 FiO2 30 04/04/22 22:34 Discharge Plan Discharge Plan Patient Disposition: Nursing Home Facility Activity: Ambulate as Tolerated Diet: Diabetic and Low-Sodium Additional Instructions: Please have company providing CPAP machine fit the patient with a mask that he can tolerate. Use a CPAP of 8 whenever asleep until the sleep study performed. Nursing Home Facility to manage care: - Full [...] Instructions: Sliding Scale ACHS Other Ambulatory Orders: APPLICATION SPECIALIST polysom procedure (Routine) Timeframe: 3 Weeks Location: Determined by Patient Ordered By: Luke Moran Follow Up: [facility] Sleep Lab [Outside] ([facility] or Central Scheduling will call you to arrange date/time for sleep study. ) Documented By: Luke Moran MD 04/07/22 0959 Signed By: <Electronically signed by Luke Moran MD> 04/07/22 1610 [facility] Work Phone: Evaluation + Plan note No data available for this section [facility] [place] Evaluation note* Diagnosis Onset Date Resolution Status FRANC (acute kidney injury) [place] Chronic kidney disease, stage III (moderate) acute COVID acute Diabetes acute Hyperglycemia acute Hypertension acute Hyponatremia acute Abrasion of elbow acute CHF (congestive heart failure) acute Diabetes mellitus, type 2 [place] Failure to thrive acute Fall acute Hypergammaglobulinemia acute Hypothyroidism acute Hypoxemia acute Morbid obesity due to excess calories acute Obstructive sleep apnea acut e Unable to care for self acut e [facility] Work Phone: Evaluation note* Diagnosis Hypotension, unspecified hypotension type- Primary Fall, initial encounter Refusal of treatment Surgical or other procedure not carried out because of patient's decision documented in this encounter [facility] Work Phone: Evaluation note* Diagnosis Primary osteoarthritis [...] Encounter for long-term (current) use of insulin (CMS/HCC) Encounter for long-term (current) use of insulin documented in this encounter [facility] HealthcareEvaluation note* Diagnosis Primary osteoarthritis of both knees- Primary Seasonal allergic rhinitis due to pollen Diabetic polyneuropathy associated with type 2 diabetes mellitus (HCC)- Primary Type II diabetes mellitus with peripheral circulatory disorder (HCC) Type II or unspecified type diabetes mellitus with peripheral circulatory disorders, not stated as uncontrolled Encounter for long-term (current) use of insulin ([facility]) Encounter for long-term (current) use of insulin documented in this encounter [facility] HealthcareEvaluation note* Diagnosis Primary osteoarthritis of both knees- Primary Seasonal allergic rhinitis due to pollen Age-related nuclear cataract of both eyes- Primary 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 (HCC) 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 associated with type 2 diabetes mellitus (HCC) documented in this encounter [facility] HealthcareEvaluation note* Diagnosis Primary osteoarthritis of both knees- Primary Seasonal allergic rhinitis due to pollen Diabetic polyneuropathy associated with type 2 diabetes mellitus (HCC)- Primary Type II diabetes mellitus with peripheral circulatory disorder (HCC) Type II or unspecified type diabetes mellitus with peripheral circulatory disorders, not stated as uncontrolled Encounter for long-term (current) use of insulin (HCC) Encounter for long-term (current) use of insulin documented in this encounter [facility] HealthcareEvaluation note* Diagnosis Primary osteoarthritis of both knees- Primary Seasonal allergic rhinitis due to pollen 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 HOME HEALTH TO MANAGE: Nursing/PT/OT/Aide/Cleaning Crew Member to eval and treat Monitor VS per [...] note No data available for this section [facility] [place] Progress note Author Sarah Osuna [facility] March 16, 2022 12:40pm Note Date/Time March 16, 2022 12: 36pm [facility] [address] [place] [address] Nephrology Progress Note Signed Patient: Evelin Patterson MR#: [id number] : 1955 Acct:[id number] Age/Sex: 66 / M Adm Date: 2 Loc: Room: [address] [place] [address] Type: ADM IN Attending Dr: Xin Phan MD Copies to: ~ Date of Service: 03/16/2022 Subjective Subjective Narrative: This is 66-year-old male patient with a past medical history of morbid obesity, endocarditis, paroxysmal A. fib, diabetes type 2, anxiety and depression and chronic kidney disease stage III. Patient presented to [facility] with feeling weak and disoriented for 2 weeks which has gotten worse. Patient has been having cough with decreased appetite and loss of taste for a week. Lab at [facility] shows acute kidney injury with creatinine up to 4.3 mg/dL along with hyperglycemia with initial blood glucose level more than 400. Patient's blood pressure was in the 80s at [facility]. Patient was given IV fluid and [...] 5 Mg Tablet) 5 mg PO DAILY [facility] Stop: 03/15/23 15:59 Last Admin: 03/16/22 08:08 Dose: 5 mg Ascorbic Acid (Ascorbic Acid 500 Mg Tablet) 500 mg PO DAILY [facility] Stop: 03/14/23 08:59 Last Admin: 03/16/22 08:08 Dose: 500 mg Dexamethasone 2 mg/ (Dexamethasone 4 mg) 6 mg PO DAILY [facility] Stop: 03/22/23 08:59 Last Admin: 03/16/22 08:08 [...] Vial) 5,000 unit SUBCUT Q12HR [facility] Stop: 03/14/23 08:59 Last Admin: 03/16/22 08:09 Dose: Not Given Insulin Aspart (Insulin Aspart 300 Units/3 Ml Insuln.Pen) 0 units SUBCUT TID.WM.HS [facility]; Protocol Stop: 03/14/23 07:59 Last Admin: 03/16/22 11:57 Dose: 8 units Insulin Detemir (Insulin Detemir 300 Units/3 Ml Insuln.Pen) 40 units SUBCUT DAILY.WITH.BKFAST [facility] Stop: 03/16/23 07:59 Last Admin: 03/16/22 08:10 Dose: 40 units Zinc Sulfate (Zinc Sulfate 220 Mg Capsule) 220 mg PO DAILY [facility] Stop: 03/14/23 08:59 Last Admin: 03/16/22 08:08 [...] Work Phone: Progress note Author Luke Moran [facility] April 03, 2022 2:05pm Note Date/Time April 03, 2022 2: 05pm [facility] [address] [place] [address] Hospitalist Progress Note Signed Patient: Evelin Patterson MR#: [id number] : 1955 Acct:[id number] Age/Sex: 66 / M Adm Date: 2 Loc: Room: [address] [place] [address] Type: ADM INOo Attending Dr: Luke Moran [...] signed by Luke Moran MD> 04/03/22 1405 [facility] Work Phone: Progress note Author Luke Moran [facility] April 04, 2022 4:25pm Note Date/Time April 04, 2022 4: 25pm [facility] [address] [place] [address] Hospitalist Progress Note Signed Patient: Evelin Patterson MR#: [id number] : 1955 Acct:[id number] Age/Sex: 66 / M Adm Date: 2 Loc: 3T Room: [address] [place] [address] Type: ADM INOo Attending Dr: Luke Moran [...] <Electronically signed by Luke Moran MD> 04/04/22 162 [facility] Work Phone: Progress note Author Luke Moran [facility] April 06, 2022 2:50pm Note Date/Time April 06, 2022 2: 50pm [facility] [address] [place] [address] Hospitalist Progress Note Signed Patient: Evelin Patterson MR#: [id number] : 1955 Acct:[id number] Age/Sex: 66 / M Adm Date: 2 Loc: Room: [address] [place] [address] Type: ADM INOo Attending Dr: Luke Moran [...] Work Phone: Progress note Author Lupe Hernandez [facility] April 08, 2022 1:38pm Note Date/Time April 08, 2022 1: 38pm [facility] [address] [place] [address] Hospitalist Progress Note Signed Patient: Evelin Patterson MR#: [id number] : 1955 Acct:[id number] Age/Sex: 66 / M Adm Date: 2 Loc: Room: [address] [place] [address] Type: ADM INOo Attending Dr: Lupe Hernandez [...] Hypothyroidism: Plan Patient currently awaiting placement to halfway facility. Remains in normal sinus rhythm. He [...] 2024 10:4 6am Chief Complaint Admit Date [id number] M43.16 November 16, 2024 10:4 6am S22.070D M43.16 December 17, 2024 1:26pm Chief Complaint Admit Date S22.070D M43.16 December 17, 2024 1:26pm S22.070D M43.16 December 27, 2024 10:00 am Chief Complaint Admit Date S22.070D M43.16 December 17, 2024 1:26pm S22.070D M43.16 December 27, 2024 10:00 am S22.070D M51.372 M43.16 February 25, 2025 11:10am Chief Complaint Admit Date S22.070D M43.16 December 27, 2024 10:00 am S22.070D M51.372 M43.16 February 25, 2025 11:10am Unknown March 25, 2025 2: 04pm Advance Directives No Advanced Directives Records Found [...] NP-C Primary Care Provider Active Start: December 17, 2024 End: December 17, 2024 Lottie Washington PA-C Attending Provider Active Start: December 17, 2024 End: December 17, 2024 Yarn Twister Relationship Specialty Start Date End Date Unallocated, [place], [address] [place] [address] PCP - General Family Medicine 10/11/24 Yarn Twister Relationship Specialty Start Date End Date Ezio Amado MD [address] [place] [address] PCP - General Family Medicine 01/19/25 Arline Rouse MD [address] [place] [id number] Nurse Practitioner Family Medicine 01/19/25 Yarn Twister Relationship Specialty Start Date End Date Ezio Amado MD [address] [place] [address] PCP - General Family Medicine 01/19/25 Arline Rouse MD [address] [place] [address] Nurse Practitioner Family Medicine 01/19/25 Yarn Twister Relationship Specialty Start Date End Date Ezio Amado MD [address] [place] [address] PCP - General Family Medicine 01/19/25 Arline Rouse MD [address] [place] [address] Nurse Practitioner Family Medicine 01/19/25 Team Status: Inactive Member Role Status Dates Arline Rouse NP-C Primary Care Provider Active Start: December 27, 2024 End: December 27, 2024 Lottie Washington PA-C Attending Provider Active Start: December 27, 2024 End: December 27, 2024 Team Status: Inactive Member Role Status Dates Arline Rouse NP-C Primary Care Provider Active Start: February 25, 2025 End: February 25, 2025 Margot Singh MD Attending Provider Active Start: February 25, 2025 End: February 25, 2025 Yarn Twister Relationship Specialty Start Date End Date Ezio Amado MD [address] [place] [address] PCP - General Family Medicine 01/19/25 Arline Rouse MD [facility] [place] [address] Nurse Practitioner Family Medicine 01/19/25 Yarn Twister Relationship Specialty Start Date End Date Ezio Amado MD [address] [place] [address] PCP - General Family Medicine 01/19/25 Arline Rouse MD [facility] [place] [address] Nurse Practitioner Family Medicine 01/19/25 Yarn Twister Relationship Specialty Start Date End Date Ezio Amado MD [address] [place] [address] PCP - General Family Medicine 01/19/25 Arline Rouse MD [address] [place] [address] Nurse Practitioner Family Medicine 01/19/25 Yarn Twister Relationship Specialty Start Date End Date Ezio Amado MD [address] [place] [phone] PCP - General Family Medicine 01/19/25 Arline Rouse MD [address] [place] [address] Nurse Practitioner Family Medicine 01/19/25 Yarn Twister Relationship Specialty Start Date End Date Ezio Amado MD [address] [place] [phone] PCP - General Family Medicine 01/19/25 Arline Rouse MD [address] [place] [id number] Nurse Practitioner Family Medicine 01/19/25 Team Status: Inactive Member Role Status Dates Arline Rouse NP-C Attending Provider Active Start: March 25, 2025 End: March 25, 2025 (unrecognized sect ion and content) No Status Records FoundNo Status Records FoundNo Status Records FoundNo Status Records FoundNo Status Records FoundNo Status Records Found INFORMATION SOURCE (unrecogn ized section and content) DATE CREATED AUTHOR 05/08/2022 [facility] [employer] [facility] DATE CREATED AUTHOR AUTHOR'S ORGANIZ ATION 12/23/2022 [facility] DATE CREATED AUTHOR AUTHOR'S ORGANIZ ATION 06/15/2024 [facility] DATE CREATED AUTHOR AUTHOR'S ORGANIZ ATION 01/07/2025 [facility] DATE CREATED AUTHOR AUTHOR'S ORGANIZ ATION 03/25/2025 [facility] DATE CREATED AUTHOR AUTHOR'S ORGANIZ ATION 03/28/2025 [facility] Reason for Visit (unrecogniz ed section and [...] BE BASED ON THE PRIMARY CLINICAL RECORDS. [facility]. provides no warranty or guarantee of the accuracy or completeness of information in this document.
== END 2025-03-28 16:32 | disposition home or self-care (01) ==
PROVIDERS: PCP Nurse Practitioner Family; Visit Provider Nurse Practitioner Family
DX: D64.9 Anemia, unspecified (principal)
CPT/HCPCS: 36415; 83540

== ENCOUNTER 2025-06-06 14:47 | Outpatient (OUT) | payer MEDICARE, MEDICAID, SELFPAY ==
--- OUTSIDE RECORDS SUMMARY | 2023-09-23 13:02 | XMS_ITS | Continuity of Care Document ---
Author Organization [facility] Address [address] [place] [address] Phone Care Team Providers Care Children'S Nursery Assistant Name Role Phone Brant Lazo Jr, MD Unavailable Unavailable Allergies, Adverse Reactions, Alerts Substance Reaction Status Criticality metformin Unknown Active No Information PROCHLORPERAZINE MALEATE Active No Information PROCHLORPERAZINE EDISYLATE Active N o Information prochlorperazine Active No Informat ion Medications Medication Instructions Dosage Effective Dates (start - stop) Status Comments Proair Digihaler 90 mcg/actuation aerosol powder breath act, sensor inhale 2 puff by inhalation route every 4 - 6 hours as needed - Active alprazolam 0.5 mg tablet take 1 tablet b y oral route 2 times every day 0.5 MG - Active hydrochlorothiazide 25 mg tablet take 1 tablet by oral route every day 25 MG - Active isosorbide mononitrate ER 30 mg tablet,extended release 24 hr take 1 tablet by oral route every day in the morning 30 MG - Active pioglitazone 30 mg tablet take 1 tablet by oral route every day 30 MG - Active trazodone 50 mg tablet take 2 tablet by oral route every day at bedtime 100 MG - Active Lantus Solostar U-100 Insulin 100 unit/mL (3 mL) subcutaneous pen inject by subcutaneous route as per insulin protocol 0.00 - Active levofloxacin 750 mg tablet take 1 tablet by oral route every day 750 MG - Active Synthroid 200 mcg tablet take 1 tablet b y oral route every day 200 MCG - Active Procedures Procedure Date Balance Transfer From Old PMS Fluorescein Angiography Fundus Photos New Patient, Moderate Advance Directives Directive Yes / No Effective Date File Name No Information Encounters Encounter Description Practice Location Reason(s) For Visit Diagnoses Date Provider Providers Copied on Encounter [facility], [address] [facility], [place], [address], [place] tel:[phone] POLO Hodgsonedo No Information 4 Violet Brant. [address], [address], [place], [place], [id number], [place]. tel:[phone] [facility], [address] [facility], [place], [address], [place] tel:[phone] POLO Rosay No Information 3 Matilde Hughes. [address], [address], [place], [place], [id number], [place]. tel:[phone] [facility], [address] [place], [address], [place] tel:[phone] [facility] No Information 9 Corporate Doctor. [address] [place], [place], [id number], [place]. tel:[phone] Referring Provider: [address], [place], [address]. tel:[phone] New Patient, Moderate [facility], [address] [place], [address], [place] tel:[phone] POLO Glaser macular degeneration (chief complaint)dec rease in vision (chief complaint) Age-related nuclear cataract, bilateralBenign neoplasm of left choroidRetinal hemorrhage, bilateralEssentia l (primary) hypertensionType 2 diab with mild nonp rtnop without macular edema, bi 8 Orgel Anali. [address], [address], [place], [place], [id number], [place]. tel:[phone] Referring Provider: [address], [place], [address]. tel:[phone] Family History Family Member Type Diagnosis Age At Onset Problem (finding) Family history of Diabe rolando mellitus Problem (finding) Family history of hyper tension Immunizations Vaccine Date Status Comments Influenza, seasonal, injecta ble, 3 yrs or older (36 mos+) FluLaval administered Source: Other P rovider Payers Payer name Insurance type Covered libertarian ID Authoriza tion(s) No Information Social History [...] Instruction Additional Infor mation Impression/Plan Related to Benig n neoplasm of left choroid Impression/Plan Related to Age-r elated nuclear cataract, bilateral Impression/Plan Related to Type 2 diab with mild nonp rtnop without macular edema, bi Impression/Plan Related to Essen tial (primary) hypertension Impression/Plan Related to Retin al hemorrhage, bilateral Assessments Type Assessment Date No Information Patient Care Teams Name Effective Dates (start - stop) Status Members No Information
--- OUTSIDE RECORDS SUMMARY | 2024-07-16 06:00 | XMS_ITS ---
Author Organization [facility] Address [address] [place] [address] Care Team Providers Care Pickle Sorter Name Role Phone Arline Rouse Primary Care Provider Carlos Ashby Unavailable [phone] Margot Titus Unavailable [phone] REASON FOR VISIT lumbar pain Encounters Encounter Location Date Provider Diagnosis [facility] Office [address] [place] [address] [place] [address] 07/16/2024 Margot Titus Plan Of Treatment Pending Test Test Name Order Date Lumbar spine, 4v flex ext - 95079 2023 Progress Notes * EVELIN CAMACHO LDOB:[birth year] (69 yo M)Acc No.[id number]:07/16/2024 Patient:?CAMACHOEVELIN :?Margot Lema MD, PhDDOB:1955 ???Age:68 Y???Sex:MaleDate:07/16/2024hone:[phone]:[address] [place] [address], [address], [place], [id number]:Arline Rouse Subjective: * Chief Complaints: * 1 . Lumbar pain. * Medical History: Objective: * Vitals: Assessment: Plan: * Treatment: ?Imaging: Lumbar spine, 4v flex ext - 71786 Forms: * Images: * Electronic signature of Margot Titus MD, PHD on 06/06/2025 at 03:02 PM EDT Sign off status: Pending * Provider: Pa Lema MD, PhD Date: 1 09/16/2023 Generated for Printing/Faxing/eTransmitting on:?06/06/2025 03:02 PM EDT
--- OUTSIDE RECORDS SUMMARY | 2025-01-17 07:10 | XMS_ITS ---
Author Organization [facility] Address [address] [place] [address] Care Team Providers Care Software Configuration Specialist Name Role Phone Arline Rouse Primary Care Provider Carlos Ashby [facility] [phone] REASON FOR VISIT RIGHT KNEE PAIN Medications Medication SIG (Take, Route, Frequency, Duration) Notes Start Date End Date Status Synthroid ActivegabapentinActivelisinoprilActiveLantusActiveropinirole hcl 0.5 MGTAKE 1 TABLET EVERY DAY AT BEDTIME for 90 DaysActiveEliquisActiveSupplementsCream for yeast infectionActiveBenadrylActiveNexIUMActiveArthritis medicationActive Encounters Encounter Location Date Provider Diagnosis [facility] [address] [place] [address] [place] [address] 01/17/2025 Carlos Saul Plan Of Treatment No Information Progress Notes * EVELIN CAMACHO LDOB:[birth year] (69 yo M)Acc No.[id number]:01/17/2025 Patient:?EVELIN CAMACHO :?Carlos Saul, MDDOB:1955???Age:69 Y ???Sex:MaleDate:01/17/2025Phone:[phone]:[address] [facility], [address], [place], [id number]:Arline Rouse Subjective: * Chief Complaints: * 1 [...] Electronic signature of Carlos Saul MD on 06/06/2025 at 03:02 PM EDTSign off status: Pending * Provider: Pa Saul MD Date: 0 01/17/2025 Generated for Printing/Faxing/eTransmitting on:?06/06/2025 03:02 PM EDT
--- OUTSIDE RECORDS SUMMARY | 2025-01-31 07:15 | XMS_ITS ---
Author Organization [facility] Address [address] [place] [address] Care Team Providers Care Supervisor Sawing And Assembly Name Role Phone Arline Rouse Primary Care Provider Carlos Ashby [facility] [phone] REASON FOR VISIT RIGHT KNEE PAIN Encounters Encounter Location Date Provider Diagnosis [facility] [facility] [address] [facility] [place] [address] [place] [address] 01/31/2025 Carlos Saul Plan Of Treatment No Information Progress Notes * EVELIN CAMACHO LDOB:[birth year] (69 yo M)Acc No.[id number]:01/31/2025 Patient:?EVELIN CAMACHO :?Carlos Saul MDDOB:1955???Age:69 Y ???Sex:MaleDate:01/31/2025Phone:[phone]:[address] [facility], [address], [place], [id number]:Arline Rouse Subjective: * Chief Complaints: * 1 . RIGHT KNEE PAIN. * Medical History: Objective: * Vitals: Assessment: Plan: * Treatment: Forms: * Images: * Electronic signature of Carlos Saul MD on 06/06/2025 at 03:03 PM EDTSign off status: Pending * Provider: Pa Saul MD Date: 0 01/31/2025 Generated for Printing/Faxing/eTransmitting on:?06/06/2025 03:03 PM EDT
--- OUTSIDE RECORDS SUMMARY | 2025-02-14 11:00 | XMS_ITS ---
Author Organization [facility] in [place] Address [address] [place] [address] Care Team Providers Care Dermatopathologist Name Role Phone Arline Rouse Primary Care Provider [phone] REASON FOR VISIT ears feel plugged Encounters Encounter Location Date Provider Diagnosis [facility] [address] [place] [address] 02/14/2025 Arline Rouse Plan Of Treatment No Information Progress Notes * YESENIA Stephane LDOB:[birth year] (69 yo M)Acc No.[id number]:02/14/2025 UNLOCKED PROGRESS NOTE Progress Note Patient: Stephane DESIR :?[facility]), CNPDOB:1955 ???Age:69 Y???Sex:MaleDate:02/14/2025Phone:[phone]:[address] [facility], [address], [place], [phone] Subjective: * Chief Complaints: * 1 . Ears feel plugged. * Medical History: Objective: * Vitals: Assessment: Plan: * Treatment: * * Electronic signature of Arline Rouse NP, POULTRY KILLER.OTR OWNER OPERATOR TRUCK DRIVER.[id number] on 06/06/2025 at 03:03 PM EDTSign off status: PendingVisit Status:?CANCPHONE (Cancelled Phone) * Provider: Javier WONG), OTR OWNER OPERATOR TRUCK DRIVER Date: 0 02/14/2025 Generated for Printing/Faxing/eTransmitting on:?06/06/2025 03:03 PM EDT
--- OUTSIDE RECORDS SUMMARY | 2025-03-17 09:30 | XMS_ITS ---
Author Organization [facility] in [place] Address [address] [place] [address] Care Team Providers Care Soft Metals Hand Engraver Name Role Phone Arline Rouse Primary Care Provider REASON FOR VISIT 3mon Encounters Encounter Location Date Provider Diagnosis [facility] [address] [place] [address] 03/17/2025 Arline Rouse Plan Of Treatment No Information Progress Notes * Stephane PATTERSON LDOB:[birth year] (69 yo M)Acc No.[id number]:03/17/2025 UNLOCKED PROGRESS NOTE Progress Note Patient: Stephane DESIR :?Arline Rouse (TTC), CNPDOB:1955 ???Age:69 Y???Sex:MaleDate:03/17/2025Phone:[phone]:[address] [place] [address], [address], [place], [id number] Subjective: * Chief Complaints: * 1 . 3mon. * Medical History: Objective: * Vitals: Assessment: Plan: * Treatment: * * Electronic signature of Arline Rouse NP, HEAD SCHOOL CUSTODIAN.SALES SERVICE REPRESENTATIVE.[id number] on 06/06/2025 at 03:02 PM EDTSign off status: PendingVisit Status:?CANC (Cancelled) * Provider: Javier Rouse CNP (TTC) Date: 0 03/17/2025 Generated for Printing/Faxing/eTransmitting on:?06/06/2025 03:02 PM EDT
--- OUTSIDE RECORDS SUMMARY | 2025-03-22 09:15 | XMS_ITS ---
Author Organization The [facility] in [place] Address [address] [place] [address] Care Team Providers Care Propellant Assembler Name Role Phone Arline Rouse Primary Care Provider [phone] REASON FOR VISIT EAR PAIN, DRAINAGE Encounters Encounter Location Date Provider Diagnosis [facility] [address] [place] [address] 03/22/2025 Arline Rouse Plan Of Treatment No Information Progress Notes * Stephane PATTERSON LDOB:[birth year] (69 yo M)Acc No.[id number]:03/22/2025 UNLOCKED PROGRESS NOTE Progress Note Patient: Stephane DESIR :?Arline WONG), CNPDOB:1955 ???Age:69 Y???Sex:MaleDate:03/22/2025Phone:[phone]:[address] [facility] [facility] [address], [place], [phone] Subjective: * Chief Complaints: * 1 . EAR PAIN, DRAINAGE. * Medical History: Objective: * Vitals: Assessment: Plan: * Treatment: * * Electronic signature of Arline Rouse NP, BRIM STIFFENER.GREEN CHAIN OFFBEARER.[id number] on 06/06/2025 at 03:03 PM EDTSign off status: PendingVisit Status:?N/S N/C (No Show/No Charge) * Provider: Javier WONG), GREEN CHAIN OFFBEARER Date: 0 03/22/2025 Generated for Printing/Faxing/eTransmitting on:?06/06/2025 03:03 PM EDT
--- OUTSIDE RECORDS SUMMARY | 2025-05-27 11:05 | XMS_ITS | Continuity of Care Document ---
Author Organization [facility] Address [address] [place] [address] Phone Care Team Providers Care Mortgage Assistant Name Role Phone Arline Rouse NUB CARD TENDER-C Attending Provider [phone] Arline Rouse NUB CARD TENDER-C Primary Care Provider Carmine Gutierrez PA-C Emergency Provider Juan A Garza MD Admit Provider Juan A Garza MD Other Provider [phone] Leah Cook MD Attending Provider Leah Cook MD Other Provider [phone] Ysabel Schaefer RN Other Provider Unavailable Garima Toussaint RN Other Provider Unavailable Maria C Salas RN Other Provider Unavailable Yulissa Gillette RN Other Provider Unavailable Geeta Muir RN Other Provider Unavailable Bouchra Quintana RN Other Provider Unavailable Nikolai Zelaya MD Other Provider [phone] Lorin Yang DO Other Provider Wolf Thao MD Other Provider Piero Sethi DO Other Provider Luke Moran MD Other Provider [phone] Nisa Starkey MD Other Provider Javid Palm DO Other Provider Unavailab Miguel Angel Perez MD Other Provider Unavailable Yesenia Hanks FIREARMS MODEL MAKER Other Provider Skyler Woods MD Other Provider [phone] Lupe Hernandez MD Other Provider Unavailable Charito Landry MD Other Provider Javid Curtis DO Other Provider Stewart Sanchez MD Other Provider Renato Looney MD Other Provider Trish Witt NUB CARD TENDER-C Other Provider Angie Cannon FIREARMS MODEL MAKER Other Provider Unavailable Hilario Singh MD Other Provider Pete Manzano MD Other Provider Elena Brush MD Other Provider Unavailable Rhett Pelletier DO Other Provider [phone] Leah Huang FIREARMS MODEL MAKER Other Provider Talib Guadalupe DO Other Provider Jeri Lo MD Other Provider [phone] Nena Neal FIREARMS MODEL MAKER Other Provider Chelle Suero FIREARMS MODEL MAKER Other Provider [phone] Tova Malcolm MD Other Provider Unavailable Yoandy Albrecht MD Other Provider Babar Vinson DO Other Provider Cyrus Gallegos MD Other Provider Christiano Sanders MD Other Provider Mikayla Enriquez APRN Other Provider Unavailable Nancy Phan MD Other Provider Allen Alberto MD Other Provider Miguel Angel Soria MD Other Provider [phone] Gera Kidd MD Other Provider Gabriella Costa FIREARMS MODEL MAKER Other Provider [phone] Rosanne Harris FIREARMS MODEL MAKER Other Provider Shade Viera MD Other Provider Diane Thapa RN Other Provider Unavailable Thanh Mazariegos MD Attending Provider [phone] Care Teams Patient Care Team Team Status: Active Member Role/Relationship Status Dates Arline Rouse NUB CARD TENDER-C Primary Care Provider Active Visit Care Team Team Status: Inactive Member Role/Relationship Status Dates Arline Rouse NUB CARD TENDER-C Attending Provider Active Start: March 25, 2025 End: March 25, 2025 Visit Care Team Team Status: Active Member Role/Relationship Status Dates Arline Rouse NUB CARD TENDER-C Primary Care Provider Active Start: May 16, 2025 Geni Ching ProviderActiveStart: May 16, 2025 Chung Schuler ProviderActiveStart: May 16, 2025 Juan A Garza MDOther ProviderActiveStart: May 16, 2025 Angelito Quirosending ProviderActiveStart: May 16, 2025 Leah Cook MDOther ProviderActiveStart: May 16, 2025 Maria C Salas RNOther ProviderActiveStart: May 16, 2025 End: May 27, 2025Yulissa Gillette RNOther ProviderActiveStart: May 16, 2025 End: May 27, 2025Geeta Muir RNOther ProviderActiveStart: May 16, 2025 End: May 27, 2025Bouchra Quintana RNOther ProviderActiveStart: May 16, 2025 End: May 27, 2025Nikolai Zelaya MDOther ProviderActiveStart: May 16, 2025 End: May 27, 2025Ronlatrice Yang DOOther ProviderActiveStart: May 16, 2025 End: May 27, 2025Muscristine Thao MDOther ProviderActiveStart: May 16, 2025 End: May 27, 2025Piero Sethi DOOther ProviderActiveStart: May 16, 2025 End: May 27ndrochelle Moran MDOther ProviderActiveStart: May 16, 2025 End: May 27, 2025Rumarjorie Starkey MDOther ProviderActiveStart: May 16, 2025 End: May 27, 2025Michaejaguar Palm DOOther ProviderActiveStart: May 16, 2025 End: May 27, 2025Napham Manuel MDOther ProviderActiveStart: May 16, 2025 End: May 27, 2025Lymelani Hanks APRNOther ProviderActiveStart: May 16, 2025 End: May 27, 2025Skyler Woods MDOther ProviderActiveStart: May 16, 2025 End: May 27, 2025Macaitlin Hernandez MDOther ProviderActiveStart: May 16, 2025 End: May 27, 2025Sakely Landry MDOther ProviderActiveStart: May 16, 2025 End: May 27, 2025Michaejaguar Curtis DOOther ProviderActiveStart: May 16, 2025 End: May 27, 2025Stewart Sanchez MDOther ProviderActiveStart: May 16, 2025 End: May 27, 2025Earjaguar Looney MDOther ProviderActiveStart: May 16, 2025 End: May 27prashant Witt NP-COther ProviderActiveStart: May 16, 2025 End: May 27djoabby Cannon APRNOt ProviderActiveStart: May 16, 2025 End: May 27, 2025Hilario Singh MDOther ProviderActiveStart: May 16, 2025 End: May 27, 2025Naeclarisa Manzano MDOther ProviderActiveStart: May 16, 2025 End: May 27, 2025Elena Brush MDOther ProviderActiveStart: May 16, 2025 End: May 27, 2025Rhett Pelletier , DOOther ProviderActiveStart: May 16, 2025 End: May 27, 2025Leah Huang , APRNOther ProviderActiveStart: May 16, 2025 End: May 27, 2025Talib Guadalupe , DOOther ProviderActiveStart: May 16, 2025 End: May 27, 2025Jeri Lo MDOther ProviderActiveStart: May 16, 2025 End: May 27, 2025Nena Neal , APRNOther ProviderActiveStart: May 16, 2025 End: May 27loree Suero , APRNOther ProviderActiveStart: May 16, 2025 End: May 27anthony Malcolm MDOther ProviderActiveStart: May 16, 2025 End: May 27, 2025Yoandy Albrecht MDOther ProviderActiveStart: May 16, 2025 End: May 27johnson Vinson , DOOther ProviderActiveStart: May 16, 2025 End: May 27, 2025Cyrus Gallegos MDOther ProviderActiveStart: May 16, 2025 End: May 27alyssa Sanders MDOther ProviderActiveStart: May 16, 2025 End: May 27jose Enriquez , APRNOther ProviderActiveStart: May 16, 2025 End: May 27, 2025Nancy Phan MDOther ProviderActiveStart: May 16, 2025 End: May 27, 2025Allen Alberto MDOther ProviderActiveStart: May 16, 2025 End: May 27, 2025Miguel Angel Soria MDOther ProviderActiveStart: May 16, 2025 End: May 27, 2025Niurka Randolph ProviderActiveStart: May 16, 2025 End: May 27, 2025Gabriella Costa APRNOther ProviderActiveStart: May 16, 2025 End: May 27, 2025Rosanne Harris , APRNOther ProviderActiveStart: May 16, 2025 End: May 27, 2025Shade Viera MDOther ProviderActiveStart: May 16, 2025 End: May 27, 2025Diane Thapa RNOther ProviderActiveStart: May 16, 2025 End: May 27, 2025 Visit Care Team Team Status: Active Member Role/Relationship Status Dates Arline Rouse , NUB CARD TENDER-C Primary Care Provider Active Start: May 23, 2025 Geni Ching ProviderActiveStart: May 23, 2025 Chung Schuler ProviderActiveStart: May 23, 2025 Juan A Garza MDOther ProviderActiveStart: May 23, 2025 Ysabel Schaefer RNOther ProviderActiveStart: May 23, 2025 Garima Toussaint , MARITOOther ProviderActiveStart: May 23, 2025 Maria C Salas RNOther ProviderActiveStart: May 23, 2025 Yulissa Gillette RNOther ProviderActiveStart: May 23, 2025 Geeta Muir RNOther ProviderActiveStart: May 23, 2025 Bouchra Quintana RNOther ProviderActiveStart: May 23, 2025 Nikolai Zelaya MDOther ProviderActiveStart: May 23, 2025 Lorin Yang , DOOther ProviderActiveStart: May 23, 2025 Wolf Thao MDOther ProviderActiveStart: May 23, 2025 Piero Sethi DOOther ProviderActiveStart: May 23, 2025 Luke Moran MDOther ProviderActiveStart: May 23, 2025 Nisa Starkey MDOther ProviderActiveStart: May 23, 2025 Javid Palm DOOther ProviderActiveStart: May 23, 2025 Miguel Angel Manuel MDOther ProviderActiveStart: May 23, 2025 Yesenia Hanks , APRNOther ProviderActiveStart: May 23, 2025 Skyler Woods MDOther ProviderActiveStart: May 23, 2025 Lupe Hernandez MDOther ProviderActiveStart: May 23, 2025 Charito Landry MDOther ProviderActiveStart: May 23, 2025 Javid Curtis , DOOther ProviderActiveStart: May 23, 2025 Stewart Sanchez MDOther ProviderActiveStart: May 23, 2025 Renato Looney MDOther ProviderActiveStart: May 23, 2025 Trish Witt , NUB CARD TENDER-COther ProviderActiveStart: May 23, 2025 Angie Cannon , APRNOther ProviderActiveStart: May 23, 2025 Hilario Singh MDOther ProviderActiveStart: May 23, 2025 Pete Manzano MDOther ProviderActiveStart: May 23, 2025 Elena Brush MDOther ProviderActiveStart: May 23, 2025 Rhett Pelletier , DOOther ProviderActiveStart: May 23, 2025 Leah Huang , APRNOther ProviderActiveStart: May 23, 2025 Talib Guadalupe , DOOther ProviderActiveStart: May 23, 2025 Jeri Lo MDOther ProviderActiveStart: May 23, 2025 Nena Neal , APRNOther ProviderActiveStart: May 23, 2025 Chelle Suero , APRNOther ProviderActiveStart: May 23, 2025 Tova Malcolm MDOther ProviderActiveStart: May 23, 2025 Yoandy Albrecht MDOther ProviderActiveStart: May 23, 2025 Babar Vinson , DOOther ProviderActiveStart: May 23, 2025 Cyrus Gallegos MDOther ProviderActiveStart: May 23, 2025 Christiano Sanders MDOther ProviderActiveStart: May 23, 2025 Mikayla Enriquez , APRNOther ProviderActiveStart: May 23, 2025 Nancy Phan MDOther ProviderActiveStart: May 23, 2025 Allen Alberto MDOther ProviderActiveStart: May 23, 2025 Miguel Angel Soria MDOther ProviderActiveStart: May 23, 2025 Gera Kidd MDOther ProviderActiveStart: May 23, 2025 Gabriella Costa , APRNOther ProviderActiveStart: May 23, 2025 Rosanne Harris , APRNOther ProviderActiveStart: May 23, 2025 Shade Viera MDOther ProviderActiveStart: May 23, 2025 Diane Thapa RNOther ProviderActiveStart: May 23, 2025 Thanh Mazariegos MDAttending ProviderActiveStart: May 23, 2025 Chief Complaint and Reason for Visit Chief Complaint Admit Date Unknown March 25, 2025 2: 04pm Multiple complaints May 16, 2025 1: 26pm Multiple complaints May 23, 2025 1 2:00am Reason for Visit Admit Date CHF (congestive heart failure) May 162024 1:26pm Chronic kidney disease, stage III (moder ate) May 16, 2025 1:26pm Hypertension May 16, 2025 1: 26pm Major depressive disorder May 16, 025 1:26pm Obstructive sleep apnea May 16 1:26pm Paroxysmal A-fib May 16, 2025 1: 26pm Suicidal ideations May 16, 2025 1: 26pm Reason for Referral Type Reason(s) Provider Provider Contact Information P rovider Address Start Date Neurosurgeon office information per patient requestNeurology office information per patient requestCall with any medical concerns.Call to make an appointment with your primary kiln tester in 2-4 weeks after discharge.[facility] cardiology , atNeurosurgeon office information per patient requestFPG - [facility] NeurosurgeryWork Phone: [phone] [facility], [address] [facility] [address]Bdlxfxtkd office information per patient requestAdvanced Neurologic - [facility] Phone: [phone] [address] [facility] [address]W Manual Writer will call you next business day between 8am & 5pm. If you miss this call please call back as soon as possible.[facility] Phone: [phone] [facility] [id number] with any medical concerns.Arline Rouse , [facility]ENTERWork Phone: [facility] [address] [facility] [address] Allergies, Adverse Reactions, Alerts Allergen Type Severity Reaction Last Updated Verified Status metformin Allergy Unknown Flatulence May 16, 2025 8:59am Yes Active prochlorperazine Allergy Unknown Flatulence, AFFECTS NERVOUS SYSTEM May 16, 2025 8:59am Yes Active Social History Smoking Status Status Start Date End Date Date of Observa tion Never smoked tobacco (finding) May 21, 2025 4:59pm Observation Status Observation Response Date of Response Legal Sex Male (finding) Sex Assigned At BirthMaleApril 1955 Family History Relationship Condition Age at Onset Recorded Date/T christian mother Unknown HypertensionUnknownMalignant neoplasm of lungUnknownbrotherAcquired immunodeficiency syndromeUnknown Problems Active Problems Problem Diagnosis/Recorded Date Onset Date Stat CURLY (acute kidney injury) March 14, 2022 1:57am Unkn own Active MSSA bacteremia July 24, 2020 11:40am Unknown Active 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, 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 Active COVID March 14, 2022 1:57am Unknown Acti ve Major depressive disorder May 17, 2025 9:11am Unk nown Active Obstructive sleep apnea April 08, 2022 1:35pm Unkno wn Active Fever July 20, 2020 3:27pm Unknown A ctive Hematuria April 12, 2022 3:56pm Unknown A ctive Diabetes March 14, 2022 12:22pm Unknown Act greta Suicidal ideations May 16, 2025 1:19pm Unknown Active Unable to care for self April 02, 2022 5:21pm Unkno wn Active Elevated erythrocyte sedimentation rate August 07, 2020 4:44pm Unknown Active Diabetes mellitus, type 2 July 20, 2020 10:35am Unknown Active Chronic kidney disease, stag e III (moderate) March 14, 2022 12:21pm Unknown Active CHF (congestive heart failure) April 02, 2022 6:38p m Unknown Active Abdominal mass July 21, 2020 4:21pm Unknown Active Hypoxemia April 08, 2022 1:34pm Unknown Act greta Generalized weakness April 12, 2022 3:56pm Unknow n Active Back pain July 20, 2020 10:36am Unknown Active Rash and nonspecific skin eruption August 01, 2020 11:43am Unknown Active Failure to thrive April 08, 2022 1:34pm Unknown Active Hypergammaglobulinemia August 10, 2020 3:09pm Unkn own Active Hyperglycemia March 14, 2022 2:42am Unknown Act greta Hyponatremia March 14, 2022 1:57am Unknown Acti ve Hyponatremia March 14, 2022 12:23pm Unknown Act greta Hypothyroidism April 08, 2022 1:36pm Unknown A ctive Leukocytosis July 20, 2020 3:27pm Unknown A ctive Morbid obesity due to excess calories July 31 020 2:04pm Unknown Active Elevated TSH April 12, 2022 3:56pm Unknown A ctive Generalized weakness August 07, 2020 4:44pm Unknow n Active Weakness August 04, 2020 1:22am Unknown A ctive Acute UTI July 20, 2020 3:27pm Unknown A ctive Paroxysmal A-fib July 31, 2020 2:04pm Unknown Active Hypertension March 14, 2022 12:22pm Unknown Act greta Fall April 02, 2022 5:21pm Unknown Act greta Abrasion of elbow April 02, 2022 5:21pm Unknown Active Hypokalemia August 07, 2020 4:44pm Unknown A ctive Hypomagnesemia August 07, 2020 4:44pm Unknown Active Medications Medication Status Dose Units Route Directions Qty Days Refills S tart Date Stop Date End Date Reason(s) Instructions Adherence Acetaminophen-Codeine 300-30 mg tablet Discontinued 1 TAB PO Q6H as needed for Pain April 02, 2022 12:00amAugust 2021 12:27pmAcetaminophen 500 mg Tablet Dpolrxbtlksp8855QRQEO3C as needed for Fever Or Zagf95Cgryeq 2021 12:00am May 16, 2025 2:28pmGabapentin 100 mg mtbiojvUhvytvuiihfa634SSLIZlxdq times oulor0955Dydnkh 2021 1:12pmMay 2024 2:27pmLiraglutide (Victoza 3-Bora) 0.6 mg/0.1 mL (18 mg/3 mL) pen injectorDiscontinued1.9PTFKHHTLDssjv73Pnyqsz 2021 12:00amMay 2024 2:22pmstart 0.6 mg sq daily x 1 week then 1.2 mg sq daily x 1 week then 1.8 mg sq daily thereafterInsulin Aspart U-100 (Novolog Flexpen U-100 Insulin) 100 unit/mL (3 mL) Insulin JijMyufqxxutnmc4ERWUDVJXKDL Before meals and at zatkviq92Kanxar 26th, 2022 12:00amMay 2024 2:27pm Levothyroxine (Synthroid) 200 mcg PohmogKctcfxnpvhqs454EZGAODmubx79440Jiyjrp 30th, 2022 12:00amMay 2024 2:27pmLiothyronine 5 mcg rstvynWvzjdw1RQAVSQyxkk May 16, 2025 12:00amUnknownLoratadine 10 mg ysrgdrTiyhwd54YRKMFuynpFcnrrzc 6th, 2025 12:00amUnknownTrazodone 50 mg BmnaiqDdooek37TLUQNlmxf at bedtime as needed for Riaiulja670Ydxhsle 17th, 2025 12:00amUnknownCyanocobalamin (Vitamin B-12) 1,000 mcg ObglytHvsvyu7178VLTYUFpdbd zswncqm713Fntmzln 2024 12:00am UnknownMagnesium Oxide 400 mg (241.3 mg magnesium) HoqxddOdulzq065ZCBONwmrx36106 May 27, 2025 12:00amUnknownCholecalciferol (Vitamin D3) 125 mcg (5,000 unit) StaicfgPpcjbt890AFUSBSfjpy813Irzszca 2024 12:00amUnknownAripiprazole 2 mg VtwyisLxoskw9NKMMJoryh94134Ulihawb 2024 12:00amUnknownFerrous Sulfate 324 mg (65 mg iron) Tablet,Delayed Release (Dr/Ec)Rffxhv218NZPHUlgoz lvklk91839 May 27, 2025 12:00amUnknownInsulin Glargine (Lantus Solostar U-100 Insulin) 100 unit/mL (3 mL) Insulin WqcCxznhf87BVFSZUCIPUAwdrs vacag030Lfhdhnp 17th, 2025 12:00amUnknownLevothyroxine (Synthroid) 25 mcg LhdfmbYgcsqsgkeyvf51 MCGPODailyDe2019 1:00amDece2019 6:14pmGabapentin 300 mg JovntsqQvuiyvspamqa125IVETPwrri times dailyDe2019 1:00amAugust 10, 2020 4:49pmLisinopril 2.5 mg MiauomHizbfpgedqnc45DVILPbgiw dailyJuly 20, 2020 1:00amAugust 07, 2020 3:01pmColchicine 0.6 mg CapsuleDiscontinued 0.6MGPOTwice dailyJuly 20, 2020 1:002019 6:15pm Levothyroxine 200 mcg cmfjkvSfuibgcydbwy178CTWRMWnqhw at [address]2019 1:002021 12:27pmCelecoxib 200 mg xmfmlbgTkqhgxmjckes622NFJEFdbdd daily as needed for AnxietyJuly 20, 2020 1:002019 2:52pm Sertraline (Zoloft) 100 mg yjeuuqVtiwtk938WRYBRdfktGfrcolbj 16th, 2020 1:00am UnknownBaclofen 10 mg wdkywnDcyovkfhbywn63KNXBMsbkc times daily as needed for PainJuly 26, 2020 1:00amAugust 10, 2020 3:06pmHydrochlorothiazide 25 mg EpffayDsfogmvqutro54MSIHCbnktBlbylggt 17th, 2020 1:002021 9:32amAtorvastatin 40 mg WqskrcZkcawd48BPFRLlxys at bedtimeJuly 27, 2020 1:00amUnknownHydrocodone-Acetaminophen ([place]) 5-325 mg CuhnooRigcbyotnijn5MLXFN Four times daily as needed for Paince2019 1:002019 4:49pmCefazolin 10 gram Recon FeuaIcstbjvfmfqh8NZVLH5X448182Rgnftymh 22nd, 2020 1:002019 3:06pmTriamcinolone Acetonide 0.1 % LotionDiscontinued 1APPLICTOPICALTwice jdjih07Doysglau2019 1:002021 12:27pm Celecoxib (Celebrex) 200 mg ytoxrngTxwweelefpih088GGKJMtqzvciTnocwjwe 28th, 2020 1:00amAugu2021 9:32amGabapentin 300 mg BeaxdhxCqlxqutgimbl037ULIFOscyh times lptrn80Mweavuqc 2019 4:48pmAugust 2021 2:41amNystatin 100,000 unit/mL suspensionDiscontinuedAugust 2021 12:00amAugu2021 2:54am Hydroxyzine Hcl 25 mg kdsbdsKfoebyvmsgdy34SWGKElizp at bedtime as needed for AnxietyAugust 2021 12:002021 12:27pmHydrochlorothiazide 25 mg tabletDiscontinuedMGAugust 2021 12:002021 2:54amGabapentin 100 mg zvmyhlxHnykyzdwbjjy108VYLVFzprv dailyAugust 2021 12:002021 12:27pmLisinopril 40 mg ubbffqXcoreojkwmbu36EEMXAlnlfFshvht 2021 12:002024 2:18pmClotrimazole 1 % mfxxoMphflaldwssx4ZMPCQXDJJZAKICtvuv as needed for Dry SkinAugust 2021 12:002021 12:27pm Prednisone 10 mg wcxlslZvajhmdbsdzk90VDXTHgalaOcfsgm 2021 12:002021 9:32amTrazodone 50 mg EzffchYugsrwpwheca01KTONGrbec at bedtimeAugust 2021 12:002021 6:08pmHydrochlorothiazide 25 mg Tablet Duvviyygpwip51XPTDMujluTdlhmu 2021 12:00amAugu2021 2:54amRopinirole 5 mg TabletDiscontinued0.5MGPODaily at bedtimeAugust 2021 12:00amMay 2024 2:15pmadminister 1-3 hours before bedtimeNystatin 100,000 unit/mL axgrtbycvgFdgvpopxqdgm543333JVUIILEgdwx at bedtimeAugust 2021 12:002021 12:27pmEsomeprazole Magnesium 40 mg capsule,delayed release(DR/EC) Mifbwnhvnbor87VBTGOvpvnCmtrao 2021 12:002021 6:07pmAlbuterol Sulfate 90 mcg/actuation HFA aerosol fvyboqfDysaxn1JGSSXQVRNCMBFBFhbsg 4 hours as needed for Shortness Of BreathAugust 2021 12:00amUnknownPioglitazone 30 mg kbnfgjCcbxnlcxvmwz60IWWDQrkpxBgotfo 2021 12:002021 12:27pmIsosorbide Mononitrate 30 mg tablet extended release 24 vyXksudn83HLRK Daily at bedtimeAugust 2021 12:00amUnknownInsulin Detemir U-100 (Levemir Flextouch U100 Insulin) 100 unit/mL (3 mL) Insulin XgkErrlffaxicpd58PEHQDEYCLZ Daily with sjhggywhe53635Muawpa 2021 12:00amMay 2024 2:13pmZinc Sulfate (Orazinc) 50 mg zinc (220 mg) TfnlskkIdiojwdqpnsr636MMCMAcwlp1965Sidcde 2021 12:002021 6:08pmDexamethasone 6 mg TabletDiscontinued6 KYJOBayxy034Jpphjl 2021 12:002021 6:07pmPen Needle, Diabetic (Pentips Pen Needle) 29 gauge x 1/2 BonuhaSiwgpglvanhs5479Tmifla 2021 12:002021 12:27pmAs DirectedLancets-Blood Glucose Strips ([facility] Lancet-Glucose Test Strp) 30 gauge Combo VhcpPlcvwpctnmep8870Sbcmdk 2021 12:002021 12:27pmAs DirectedInsulin Lispro (Humalog Kwikpen Insulin) 100 unit/mL Insulin DyyWwwzjkdofeqr9rxvknsm scale doseSUBCUTBefore meals and at bedtime Protocol: If the [...] than or = 400 mg/dL Dose/Route: 9 reoc36Jmoozx 2021 12:00amAugust 2021 12:27pmSliding Scale ACHS Please contact the information source for Protocol details.Insulin Glargine (Lantus Solostar U-100 Insulin) 100 unit/mL (3 mL) insulin zyyXjoshzwchghp93TBHA SUBCUTDaily at bedtimeMay 2024 12:00amOctober 2024 1:38pmLisinopril 20 mg zzdtjbMyqnwo90QIPHFlemsVqe 2024 12:00amUnknownEsomeprazole Magnesium 40 mg capsule,delayed release(DR/EC)Vlvxks75WQKFDluxdCwa 2024 12:00am UnknownRopinirole 0.5 mg tabletActive0.5MGPODaily at bedtimeMay 2024 12:00amUnknownDiclofenac Sodium 75 mg tablet,delayed release (DR/EC)Bbvdlt86CXZU Twice daily as needed for painMay 2024 12:00amUnknownDiphenhydramine Hcl (Banophen) 25 mg dizsgmvMjfipu16DXXQAtui times daily as needed for itchingMay 2024 12:00amUnknownClotrimazole 1 % sqitjJinviqlysfeg9FNSWXUYGTIRKPZtgam daily as needed for rashMay 2024 12:00amJuly 2024 11:40amApixaban (Eliquis) 5 mg tabletActive2.5MGPOTwice dailyMay 2024 12:00amUnknownAspirin 81 mg tablet,wpcplfscOdhrlanabrsg65JKKZJovdc morningMa2024 12:00amJuly 2024 11:40amFluticasone Propionate 50 mcg/actuation spray,suspensionActive 1SPRAYINTRANASALDaily as needed for allergy symptomsy 2024 12:00amUnknown Metoprolol Succinate 25 mg tablet extended release 24 emOrsqga09VHONPwrlv morningMa2024 12:00amUnknownLevothyroxine (Synthroid) 200 mcg Tablet Efifpw864EUYPYLgdnzAws 9th, 2025 12:00amUnknownGabapentin 100 mg capsuleActive 100MGPOTwice dailyMay 2024 12:00amUnknownInsulin Aspart U-100 (Novolog Flexpen U-100 Insulin) 100 unit/mL (3 mL) Insulin IgqJcpootxmqsrz7bqshghy scale doseSUBCUTBefore meals and at bedtimeMay 2024 12:00amJuly 2024 11:41am Immunizations Immunization Event Date Not Given Reason Dose Number [place] Registered Nurse Rn Lot Number Reason(s) Given Vaccine Information Statement (VIS) Detail Administration Location Fluzone TIV High-Dose 65YR+ May 17, 2025 [id number] Procedures Procedure Date Performed Status Urine Culture March 25, 2025 completed Relevant Diagnostic Tests and/or Laboratory Data Microbiology Results Procedure Source Result Collection Date/Time Result Date/Time Result Comment Performing Site Urine Culture Urine 2 Days March 25, 2025 2:04pm [facility] 2024 7:43am [facility] [id number] [address] [place] [address] Vital Signs Vital Reading Result Reference Range Collection Date/Time Height 70 [in_i] May 27, 2025 9:58fkPbbqor546.60 [facility] 9:00amBody Aknybxabpzs16.3 [degF]97.6-99.0[facility] 2024 11:00amHeart Rate78 /dii26-605 May 27, 2025 11:00amRespiratory rate18 /iei18-10Ifkxwav 2024 11:00am Oxygen saturation by Pulse %95-100[facility] 2024 11:00amBP Nlogetgl631 mm[Hg]100-140[facility] 2024 11:00amBP Ggdnynboj52 mm[Hg]60-100 May 27, 2025 11:00am Advance Directives Advance Directive Response Recorded Date/ Time Advance Directives No September 05, 2020 8:27am Insurance Providers Guarantor Stephane Patterson Address [address] [address]Ntkjesk Info.Home Phone: Coverage Status Update:2024 Payer Group Member ID Coverage Type Subscriber Relationship to Subscriber Effective Date Expiration Date Medicaid [id number] L Bowman Id: [id number] [address] [address] Home Phone: Email: Declined 2020[employer] Id: [id number] L Bowman Id: [id number] [address] [address] Home Phone: Email: Declined 2020[employer] Psych-IP Part A [id number] L Bowman Id: [id number] [address] [address] Home Phone: Email: Declined 2020Self Encounters Encounter Location(s) Arrival/Admit Date Discharge/Departure Date Discharge/Departure Disposition Provider(s) Departed Referred -[facility] March 25, 2025 2:04pm March 25, 2025 2:05pm Discharged to home care or self care (routine discharge) Arline Rouse CNP Non-patient / [facility] O ctober 2024 1:26pm Leah Cook MDNon-patient / [facility] OutPt[facility] 12:00Chris Mazariegos MD Recent Diagnosis Onset Date Admit Date CHF (congestive heart failure) Unknown O ctober 2024 1:26pm Chronic kidney disease, stage III (moderate) Unk nown May 16, 2025 1:26pm Hypertension Unknown May 16 1:26pm Major depressive disorder Unknown r 2024 1:26pm Obstructive sleep apnea Unknown May 16, 2025 1:26pm Paroxysmal A-fib Unknown May 16 1:26pm Suicidal ideations Unknown May 16, 2025 1:26pm Assessments Diagnosis Onset Date Resolution Status Admit Date CHF (congestive heart failure) acuteOctober 2024 1:26pmChronic kidney disease, stage III (moderate)acute May 16, 2025 1:26pmHypertensionacuteOctober 2024 1:26pmMajor depressive disorderacuteOctober 2024 1:26pmObstructive sleep apneaacute May 16, 2025 1:26pmParoxysmal A-fibacuteOctober 2024 1:26pmSuicidal ideationsacuteOctober 2024 1:26pm Plan of Treatment Future Tests Future scheduled test information is unavailable Pending Tests Pending diagnostic test information is unavailable Future Visits Future appointment information is unavailable Future Procedures Procedure Name Ordered Date Scheduled Date PT/OT/SP OutPatient Referral May 27, 2025 11:38am 1 Days Admit Status Order May 16, 2025 1:41pm Octo licha 2024 1:42pm Consult to Adult Hospitalist May 21, 2025 8:23am May 21, 2025 8:23am Discharge Order May 27, 2025 1:06pm Octobe r 2024 1:06pm Future Medications Future medication information is unavailable Patient Instructions Instruction Admit Date Depression in adults - Disch arge instructions [facility] [place] Instructions Know your MedsOctober 2024 1:26pm
--- OUTSIDE RECORDS SUMMARY | 2025-05-30 09:00 | XMS_ITS ---
Author Organization [facility] in [place] Address [address] [place] [address] Care Team Providers Care Operations/Dispatch Name Role Phone Arline Rouse Primary Care Provider [phone] Allergies Allergen (clinical drug ingredient) Drug/Non Drug Allergy documented on EMR Reaction Allergy Type Onset Date Status CompazineAnxietyDrug AllergyActivemetforminMetforminGI UpsetDrug AllergyActive Reason For Referral Reason gen weakness, chroni c back pain Diagnosis 1 Generalized weakness (R53.1) Diagnosis 2 Back pain (M54.9) Referral Organization [facility] [place] Medicine Referring Provider First Name Arline Referring Provider Last Name Nasim Referring Provider Speciality Family Med icine Referred Provider [facility], Physical Therap y Referred Provider Specialty Physical The rapist Referral Priority Routine REASON FOR VISIT [facility] F/U- 05/30- Depression Medications Medication SIG (Take, Route, Frequency, Duration) Notes Start Date End Date Status traZODone HCl 50 MG TAKE 1 TABLET BY MICHI EVERY DAY AT BEDTIME NEEDED; Duration: 90 [facility] Bed with Halt Rails -Use As Directed; Duration: 360 days12/16/2023ctiveSertraline HCl 100 MG1 tablet Orally Once a day; Duration: 90 daysActiveNystatin 229013 UNIT/GMAPPLY TO AFFECTED AREA TWICE A DAY [...] Monitor System w/Devicecheck blood sugar fasting every oqgwqdf48/18/2025ActiveCarvedilol 3.125 MGOral; Duration: 90 DaysActiveCVS Aspirin Adult [...] alcohol in the p ast year? No Xlulci7DxfsndkzhwxagnXukqpxsu Vital Signs Weight 343 lbs 05/30/2025 Height 70 in 05/30/2025 Blood pressure systolic 130 mm Hg 05/30/20 25 Blood pressure diastolic 78 mm Hg 025 BMI 49.21 kg/m2 05/30/2025 Encounters Encounter Location Date Provider Diagnosis [address] [place] [address] 05/30/2025 Arline Rouse Generalized weakness R53.1 ; [...] weak ness, chronic back pain, Physical Therapy [facility] Next Appt Details Follow Up: prn,3 Months, [place] son: Progress Notes * Stephane PATTERSON LDOB:[birth year] (69 yo M)Acc No.[id number]:05/30/2025 Progress Note Patient: Stephane EDSIR :?Arline Rouse ([facility]), CNPDOB:1955 ???Age:69 Y???Sex:MaleDate:05/30/2025Phone:[phone]:[address] [facility], [address], [place], [id number] In:12:59 PM ESTCheck Out:01:53 PM EST Subjective: * Chief Complaints: * 1 . [facility] F/U- 05/30- Depression. * HPI: ???General:? 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 * ROS: ???General/Constitutional:?Anxiety?admits.?Depression?admits.?Fever?denies.?Headache?denies.?Weight loss?denies.?Ophthalmologic:?Discharge?denies.?Eye Pain?denies.?Itching and redness?denies.?ENT:?Nasal discharge?denies.?Nasal congestion?denies. Sore throat?denies.?Cardiovascular:?Chest tightness/ heavy pressure?denies.?Rapid heart rate?denies.?Swelling of extremities?denies.?Chest pain?denies.?Respiratory:?Productive cough?denies.?Chest pain?denies.?Cough?denies.?Shortness of breath?admits, with activity, chronic.?Wheezing?admits.?Gastrointestinal:?Abdominal pain?discomfort, feels bloated.?Constipation?admits.?Decreased appetite?denies.?Diarrhea?admits and IBS sx.?Nausea?denies.?Vomiting?denies.?Genitourinary:?Urinary incontinence?denies.?Painful urination?denies.?Musculoskeletal:?Back pain?chronic.?Neck pain?chronic.?Muscle aches?denies.?Skin:?Rash?denies.?Skin lesion(s)?denies.? * Active Problem List I10 Hypertension Modified On:12/15/2023 Status:ccwjuclnmX60.9Anxiety Modified On:12/15/2023 Status:jqsnaiuwvS01.30Sleep apnea Modified On:12/15/2023 Status:sjsdtlmzoS42.00Insomnia Modified On:12/15/2023 Status:kebujhuvoG05.0Fatty liver Modified On:12/15/2023 Status:cxxnujlppU62.00Hypercholesterolemia Modified On:12/15/2023 Status:dpfjtyumtF66.9Diabetes Modified On:12/15/2023 Status:gooexjqxnV79.7Fibromyalgia Modified On:09/01/2023 Status:couzldtaxA45.42Hypomagnesemia Modified On:10/03/2023U Status:oxawmkwpxB00.7Fibromyalgia Modified On:10/03/2023U Status:tasnvwhwzS10.9Diabetes mellitus Modified On:10/03/2023U Status:hebpaipvrN03.30Sciatica Modified On:12/15/2023 Status:ggzmcgazeR26.9Knee osteoarthritis Modified On:01/30/2024U Status:uayshqvmqN68.9Acute bronchitis Modified On:01/30/2024 Status:ejltmbotaX08.91New onset a-fib Modified On:03/01/2024U Status:pyxlsjnmtT74.91Afib Modified On:03/22/2024U Status:kqgkqgdmxL02.9Anemia, iron deficiency Modified On:03/22/2024 Status:rsdrcztffO52.0Moderate malnutrition Modified On:03/22/2024 Status:nfrixtwfkH43.60Cirrhosis of liver Modified On:04/05/2024 Status:qbxpujmoaV51.2Paresthesia Modified On:10/08/2024 Status:cdwthvqmqI19.9GERD (gastroesophageal reflux disease) Modified On:10/08/2024 Status:gtzcqyeshK33.2Major depressive disorder, severe Modified On:10/19/2024 Status:thfzuwytqN48.9Chronic obstructive pulmonary disease, unspecified Modified On:02/09/2025 Status:khhonxaqfT19.31Chronic kidney disease, stage 3a Modified On:02/09/2025 Status:bsefzimmyC97.2Seasonal allergies Modified On:02/09/2025 Status:pfxzzhnyjH60.89Environmental and seasonal allergies Modified On:03/22/2025 Status:zwqnmvkyvE17.9Anemia Modified On:03/28/2025 Status:jhsyxzpfiV40.5Hyperlipidemia Modified On:03/28/2025 Status:confirmed * Medical History: H [...] DIRECTED. STOP CARVEDILOL Oral , Taking Nystatin 861171 UNIT/GM Cream APPLY TO AFFECTED AREA TWICE [...] * * Electronically signed by Arline Rouse WORKERS COMPENSATION CLAIMS EXAMINER, IS/IT PROJECT MANAGER.LEGAL SECRETARY RECEPTIONIST.[id number] on 05/31/2025 at 03:08 PM EDTSign off status: CompletedVisit Status:?CHK (Check Out) true * Provider: Javier Rouse ([facility]), LEGAL SECRETARY RECEPTIONIST Date: 1 Generated for Printing/Faxing/eTransmitting on:?06/06/2025 03:03 PM EDT History and Physical Notes * HPI (History of Present Illness) CategorySub-CategoryDetailNotesCategory NotesGeneral not doing too great discharged from [facility] psych in there about 10 days [...] Provider Referred Provider Not es 05/30/2025 Arline oRuse [facility], Physical Therapy gen weakness, chronic back pain
--- OUTSIDE RECORDS SUMMARY | 2025-06-02 10:22 | XMS_ITS ---
Author Organization [facility] in [place] Address [address] [place] [address] Care Team Providers Care Social Media Director Name Role Phone Arline Rouse Primary Care Provider REASON FOR VISIT hep C Encounters Encounter Location Date Provider Diagnosis [facility] [address] [facility] [place] [address] 06/02/2025 Arline Rouse Cirrhosis of liver K74.60 Assessments Encounter Date Diagnosis (ICD Code) Assessment Notes Treatment Notes Treatment Clinical Notes Section Notes 06/02/2025 Cirrhosis of liver (ICD-10 - K74 .60) Plan Of Treatment Pending Test Test Name Order Date HEPATITIS PANEL, ACUTE 06/02/2025 Progress Notes * Stephane PATTERSON LDOB:[birth year] (69 yo M)Acc No.[id number]:06/02/2025 Patient:?Stephane PATTERSON :1955???Age:69 Y???Sex:MalePhone:[phone] Address:[address] [place] [id number] Subjective: * Chief Complaints: * h ep C * Medical History: * Surgical History: * Hospitalization/Major Diagno stic Procedure: * Medications: Objective: * Vitals: * Physical Examination: ??? Assessment: * Assessment: 1.?Cirrhosis of liver - K74.60 (Primary)??? Plan: * Treatment: ?LAB: HEPATITIS PANEL, ACUTE * Procedure Codes: * true * Date:?Generated for Printing/Faxing/eTransmitting on:?06/06/2025 03:03 PM EDT
--- OUTSIDE RECORDS SUMMARY | 2025-06-06 14:57 | XMS_ITS | CCD ---
Author Organization [facility] Inform ion Partnership [facility] Care Team Providers Care Netsuite Developer Name Role Phone JEFF CARLOS Saul Primary Care Physician MD Ayden Freeman Primary [...] JUAN US Consulting UnavailXIN Tavares Consulting Unavailable MALATHIAMOLJEMMA Haney Consulting Unavailable NADERER, DR AYDEN Haney Consulting Unavailable [...] BUTT Consulting Unavailable AMBROCIO, ABBIE Consulting Unavailable NEAL, DR MASON Huffman Consulting Unavailable NEAL, DR MASON Huffman Attending Unavailable NEAL, DR MASON Huffman Admitting Unavailable NADERER, DR [...] Admitting Unavailable Margot Singh MD Attending Provider [phone] Cady ROLL TABLE OPERATOR-C, Arline Almazan Primary Care Provider [phone] [employer] PA-CLottie Attending Provider Unallocated , Saidas Provider Primary Care [facility] Arline Lazar MD Unavailable Ezio Amado MD Primary Care Provider [phone] Cady ROLL TABLE OPERATOR-C, Arline Almazan Primary Care Provider [phone] Margot Singh MD Attending Provider [phone] Cady ROLL TABLE OPERATOR-C, Arline Almazan Primary Care Provider [phone] [employer] PA-CLottie Attending Provider Cady ROLL TABLE OPERATOR-C, Arline Almazan Attending Provider [phone] ARLINE LAZAR Primary Care Physician [phone] Nancy Stanton Attending Unavailable CADY, ARLINE Winn Referring Unavailable NILL, Javid Huffman Attending Unavailable RUSHER, CAROL Haney Attending Unavailable RUSHER, CAROL Haney Attending Unavailable ZAHLER, SYLVIA Simmons Attending Unavailable JIMENA SY Referring Unavailable RUSHER, CAROL Haney Attending Unavailable ZAHLER, SYLVIA Simmons Attending Unavailable ZAHLXAVIER, SYLVIA Simmons Attending Unavailable Cady ROLL TABLE OPERATOR-C, Arline Arriagae Primary Care Provider Matt DAVID, Carmine Hughes Emergency Provider Juan A Garza MD Admit Provider Greg JOHNSON, Juan A Attending Provider ELTAHAWY, EHAB Referring Unavailable ELTAHAWY, EHAB Attending Unavailable [place]TAHAWY, EHAB Admitting Unavailable [place]TAHAWY, EHAB Attending Unavailable Cady ROLL TABLE OPERATOR-C, Arline Almazan Primary Care Provider [phone] Juan A Garza MD Other Provider Leah Cook MD Attending Provider [phone] Leah Cook MD Other Provider Silvano RN, Ysabel Other Provider Unavailable Breana RN, Garima Other Provider Unavailable Josue RN, Maria C Other Provider Unavailable Nain RN, Yulissa Other Provider Unavailable Wood RN, Geeta Other Provider Unavailable Mariano RN, Bouchra Other Provider Unavailable Nikolai Zelaya MD Other Provider Lorin Yang DO Other Provider Wolf Thao MD Other Provider [phone] Piero Sethi DO Other Provider [phone] Luke Moran MD Other Provider Nisa Starkey MD Other Provider Javid Palm DO Other Provider Unavailab luisa Manuel MD, Miguel Angel Other Provider Unavailable Yesenia Hanks APRN Other Provider Skyler Woods MD Other Provider Lupe Hernandez MD Other Provider Unavailable Charito Landry MD Other Provider Javid Curtis DO Other Provider Stewart Sanchez MD Other Provider Renato Looney MD Other Provider Eduar ROLL TABLE OPERATOR-C, Trish Carlos Other Provider Angie Cannon APRN Other Provider Unavailable Hilario Singh MD Other Provider Pete Manzano MD Other Provider Elena Brush MD Other Provider Unavailable Rhett Pelletier DO Other Provider Leah Huang APRN Other Provider Talib Guadalupe DO Other Provider Teresita JOHNSON, Jeri Arora Other Provider Nena Neal APRN Other Provider Chelle Suero APRN Other Provider Yun JOHNSON, Tova Other Provider Unavailable Yoandy Albrecht MD Other Provider Kareljaswinder WHITE Yacamilla Other Provider El JOHNSON, Cyrus Herrera Other Provider Christiano Sanders MD Other Provider Mikayla Enriquez APRN Other Provider Unavailable Nancy Phan MD Other Provider Allen Alberto MD Other Provider Miguel Angel Soria MD Other Provider Gera Kidd MD Other Provider Gabriella Costa APRN Other Provider [phone] MillyzaRosanne Lopez APRN Other Provider Maximiliano JOHNSON, Shade Haney Other Provider Diane Thapa RN Other Provider Unavailable Thanh Mazariegos MD Attending Provider Arline Lazar Attending Unavailable Cady, Arline Norah Admitting Unavailable [employer], Lottie R Attending Unavailabl e [employer], Lottie R Admitting Unavailabl e Cady, Arline Norah Primary Care Unavailable Cady, Arline Norah Primary Care Unavailable Samantha, Selvon F Attending Unavailable Samantha, Selvon F Admitting Unavailable Cady, Arline Norah Primary Care Unavailable Samantha, Selvon F Attending Unavailable Samantha, Selvon F Admitting Unavailable Ysabel Schaefer Consulting Unavailable Arline Lazar Primary Care Unavailable Thanh Mazariegos Attending Unavailable Juan A Garza Admitting Unavailab Garima Mcmullen Consulting Unavailable Maria C Salas Consulting Unavailable Yulissa Gillette Consulting Unavailable Geeta Muir Consulting Unavailable Bouchra Quintana Consulting Unavailable Nikolai Zelaya Consulting Unavailable Lorin Yang Consulting Unavailable Wolf Thao Consulting Unavailable Piero Sethi Consulting UnavailLuke Mauro Consulting Unavailable Nisa Starkey Consulting Unavailable Javid Palm Consulting Unavailable Miguel Angel Manuel Consulting Unavailable Yesenia Hanks Consulting UnavailSkyler Fortune Consulting Unavailable Lupe Hernandez Consulting Unavailable Charito Landry Consulting Unavailable Javid Curtis Consulting Unavailable Stewart Sanchez Consulting Unavailable Renato Looney Consulting Unavailable Trish Witt Consulting Unavailable Angie Cannon Consulting Unavailable DoHilario mirza Consulting Unavailab Pete Fan Consulting Unavailable Elena Brush Consulting Unavailable Rhett Pelletier Consulting Unavailable Leah Huang Consulting Unavailable Talib Guadalupe Consulting Unavailable Jeri Lo Consulting Unavailable Nena Neal Consulting Unavailable Chelle Suero Consulting Unavailable Tova Malcolm Consulting Unavailable Yoandy Albrecht Consulting Unavailable Babar Vinson Consulting Unavailable Cyrus Gallegos Consulting Unavailable Christiano Sanders Consulting Mikayla Hale Consulting Unavailable Nancy Phan Consulting Unavailable Allen Alberto Consulting Unavailable Miguel Angel Soria Consulting Unavailable Gera Kidd Consulting Unavailable Gabriella Costa Consulting Unavailable Bolzan-Rosanne Bermudez Consulting Unavaila Shade Epps Consulting Unavailable Diane Thapa Consulting Unavailable Lottie Washington Attending UnavailLottie Andrews Admitting UnavailArline Ramos Primary Care Unavailable Allergies Allergy ClassificationReported Allergen(s)Allergy TypeDate of OnsetReaction(s) Facility (20 sources)metFORMIN; Translations: [metformin]Drug Rcwhrwz28-43-9199Ukkzrsp, Gastrointestinal irritation (disorder)[facility] (20 sources)Prochlorperazine; Translations: [prochlorperazine]Drug Allergy 40-48-7272Ffwktsn, Other, Anxiety (finding)[facility] (3 sources)Prochlorperazine; Translations: [Compazine]Drug AllergyThe [facility] (15 sources)pioglitazoneDrug Xkfhsft15-57-7845[facility] Medications Current Medications MedicationDrug Class(es)DatesSig (Normalized)Sig (Original)Albuterol (13 sources)beta2-Adrenergic AgonistStart: 44-77-0749ksno 90 ug by inhalation every four hoursAlbuterol (Eqv-ProAir HFA) 90 mcg, Inhalation, q4hr Shortness of breath or wheezing, Refill(s) 0 Start Date: 04/15/25 Status: Ordered Repeat number: 1Start: 05-95-8916ubub 1 puff(s) by inhalation every four hours as neededapixaban 5 mg oral tablet (20 sources)Factor Xa InhibitorStart: 65-62-5299myik 2.5 mg by mouth twice daily Eliquis 5 mg oral tablet 2.5 mg = 0.5 tab(s), Oral, BID, Refills(s) 0 Start Date: 04/15/25 Status: Ordered Repeat number: 1Start: 92-00-6697hpcb 1 tablet by mouth twice dailyApixaban (Eliquis) 5 mg tablet Active 5 MG PO Twice daily December 17, 2024 12:00am Complies with drug therapyARIPiprazole 2 mg oral tablet (1 source)Atypical AntipsychoticStart: 90-48-8475rbqo 1 tablet by mouth once dailyaspirin 81 mg chewable tablet (7 sources)Platelet Aggregation Inhibitor, Nonsteroidal Anti-inflammatory Drug Start: 36-16-7579oiobpyx 81 mg Chew Tab 81 mg = 1 tab(s), Chewed, Daily, Refills(s) 0 Start Date: 04/15/25 Status: Ordered Repeat number: 1Start: 12-17-2024 End: 34-09-8778clwh 1 tablet by mouth once daily in the morningAspirin 81 mg tablet,chewable Discontinued 81 MG PO Every morning December 17, 2024 12:00am February 25, 2025 11:40amatorvastatin 40 mg oral tablet (20 sources)HMG-CoA Reductase InhibitorStart: 02-07-3806rjig 1 tablet by mouth once daily at bedtimeazelastine hydrochloride 0.5 mg/ml ophthalmic solution (1 source)Histamine-1 Receptor AntagonistStart: 47-46-0934xvyj 1 drop(s) into the eye(s) twice dailyazelastine 0.05% Opth Allyson 1 drop(s), Eye-Both, BID Allergy symptoms, Refill(s) 0 Start Date: 04/15/25Status: Ordered Repeat number: 1 carvedilol 3.125 mg oral tablet (14 sources)alpha-Adrenergic Eva, beta-Adrenergic Blockercarvedilol (Coreg) 3.125 MG tablet Oral for 90 Days Activecholecalciferol 0.125 mg oral capsule (1 source)Vitamin DStart: 45-24-0492etdt 1 capsule by mouth once dailydiclofenac sodium 75 mg delayed release oral tablet (7 sources)Nonsteroidal Anti-inflammatory DrugStart: 62-68-6448vocm 1 tablet by mouth twice dailydiclofenac sodium 75 mg Oral EC Tab 75 mg = 1 tab(s), Oral, BID, Refills(s) 0 Start Date: 04/15/25 Status: Ordered Repeat number: 1Start: 17-64-5289crzd 2 tablets by mouth once daily at bedtimeDiclofenac Sodium 75 mg tablet,delayed release (DR/EC) Active 150 MG PO Daily at bedtime December 17, 2024 12:00am Complies with drug therapydiphenhydrAMINE hydrochloride 25 mg oral tablet (20 sources)Histamine-1 Receptor AntagonistStart: 54-33-7894zbie 1 tablet by mouth four times dailyBenadryl 25 mg Tab = 1 tab(s), Oral, QID, Refills(s) 0 Start Date: 04/15/25 Status: Ordered Repeat number: 1Start: 04-83-1829uudn 1-2 capsules by mouth four times dailyBanophen 25 MG capsule TAKE 1 - 2 CAPSULES BY MOUTH 4 TIMES A DAY FOR ITCHING 12/21/2024 ActiveStart: 05-77-7527Fdhsh: 30-73-4975ocdsewrgkria 40 mg delayed release oral capsule (20 sources)Proton Pump InhibitorStart: 54-74-7885vrmf 1 capsule by mouth once dailyStart: 03-14-2022 End: 66-98-0654ixuk 1 capsule by mouth once dailyEsomeprazole Magnesium 40 mg capsule,delayed release(DR/EC) Discontinued 40 MG PO Daily March 12:00am April 02, 2022 6:07pmferrous sulfate 324 mg delayed release oral tablet (1 source)Start: 76-79-5827vwdf 1 tablet by mouth twice dailyfluticasone propionate 0.05 mg/actuat metered dose nasal spray (20 sources)CorticosteroidStart: 99-86-2804kobjwikhqpd (Flonase) 50 MCG/ACT nasal spray Indications: Seasonal allergic rhinitis due to pollen USE 2 SPRAYS IN EACH NOSTRIL IN MORNING.SHAKE GENTLY.BEFORE FIRST USE,PRIME PUMP.AFTER USE,CLEAN TIPAND REPLACE CAP. 16 mL 1 12/27/2024 ActiveStart: 12-17-2024 gabapentin 100 mg oral capsule (20 sources)Anti-epileptic AgentStart: 19-49-4745magc 1 capsule by mouth twice dailyStart: 86-24-3324hbxr 2 capsules by mouth once daily at bedtimeGabapentin 100 mg capsule Active 200 MG PO Daily at bedtime December 17, 2024 12:00am Complies with drug therapyStart: 66-60-2302pbbt 1 capsule by mouth in the morning gabapentin (Neurontin) 100 MG capsule Indications: DDD (degenerative disc disease), cervical Take 1capsule (100 mg) by mouth in the morning and 1 capsule (100 mg) before bedtime. 60 capsule 2 12/08/2023 ActiveStart: 04-04-2022 End: 29-65-1566anet 2 capsules by mouth three times dailyGabapentin 100 mg capsule Discontinued 200 MG PO Three times daily 0 30 April 04, 2022 1:12pm December 17, 2024 2:27pmStart: 70-34-2833jqgm 200 mg by mouth three times daily Gabapentin Active 200 MG PO Three times daily 0 April 04, 2022 1:12pm Start: 86-71-9468yyrv 200 mg by mouth three times dailyGabapentin Active 200 MG PO Three times daily 0 April 04, 2022 1:12pmStart: 91-92-7216abko 200 mg by mouth three times dailyGabapentin Active 200 MG PO Three times daily 0 April 04, 2022 1:12pmStart: 03-14-2022 End: 97-09-0508vpmm 1 capsule by mouth twice dailyGabapentin 100 mg capsule Discontinued 100 MG PO Twice daily March 14, 2022 12:00am April 09, 2022 12:27pmStart: 07-20-2020 End: 64-42-8298khxn 1 capsule by mouth three times dailyGabapentin 300 mg Capsule Discontinued 300 MG PO Three times daily 9 August 10, 2020 4:48pm March 14, 2022 2:41amInsulin Aspart U-100 (Novolog Flexpen U-100 Insulin) 100 unit/mL (3 mL) Insulin Pen (8 sources)Start: 27-15-0001lgvogi 1 dose by subcutaneous injection at bedtime Insulin Aspart U-100 (Novolog Flexpen U-100 Insulin) 100 unit/mL (3 mL) Insulin Pen Active 1 sliding scale dose SUBCUT Before meals and at bedtime December 17, 2024 12:00amStart: 04-05-2022 End: 29-62-2930Nlfozik Aspart U-100 (Novolog Flexpen U-100 Insulin) 100 unit/mL (3 mL) Insulin Pen Discontinued 0 UNITS SUBCUT Before meals and at bedtime April 05, 2022 12:00am December 17, 2024 2:27pmStart: 11-93-9537Ewteipd Aspart U- 100 (Novolog Flexpen U-100 Insulin) 100 unit/mL (3 mL) Insulin Pen Active 0 UNITS SUBCUT Before meals and at bedtime 0 April 05, 2022 12:00am3 ml insulin glargine 100 unt/ml pen injector (20 sources)Insulin AnalogStart: 72-14-9644Zbnzp: 12-19-2023 End: 35-11-0112Jympbvq Glargine (Lantus Solostar U-100 Insulin) 100 unit/mL (3 mL) insulin pen Discontinued 40 UNIT SUBCUT Daily at bedtime December 17, 2024 12:00am May 27, 2025 1:38pm24 hr isosorbide mononitrate 30 mg extended release oral tablet (20 sources)Nitrate VasodilatorStart: 03-14-2022 End: 24-11-8963crle 1 tablet by mouth once daily at bedtime, then take 1 tablet by mouth every twenty-four hoursLantus Solostar Pen (1 source)Start: 15-94-1424piwhum 45 [IU] by subcutaneous injection once daily Lantus Solostar Pen 45 unit(s), SubCutaneous, Daily, Refill(s) 0 Start Date: 04/15/25 Status: OrderedRepeat number: 1levothyroxine sodium 0.2 mg oral tablet (20 sources)l-ThyroxineStart: 36-62-3832iolr 1 tablet by mouth once daily levothyroxine 200 mcg (0.2 mg) Tab 200 mcg = 1 tab(s), Oral, Daily, Refills(s) 0 Start Date: 04/15/25Status: Ordered Repeat number: 1Start: 13-59-8012mxfd 1 tablet by mouth once dailyStart: 04-09-2022 End: 53-21-6221Zjhkrrqzkllmn (Synthroid) 200 mcg Tablet Discontinued 250 MCG PO Daily April 09, 2022 12:00am December 17, 2024 2:27pmStart: 04-09-2022 Levothyroxine (Synthroid) 200 mcg Tablet Active 250 MCG PO Daily April 09, 2022 12:00amStart: 81-54-4115Nxmzauywsxtjs (Synthroid) 200 mcg Tablet Active 250 MCG PO Daily April 09, 2022 12:00amStart: 07-20-2020 End: 39-51-7175hsxw 1 tablet by mouth once dailyLevothyroxine 200 mcg tablet Discontinued 200 MCG PO Daily at 629July 20, 2020 1:00am April 09, 2022 12:27pmStart: 07-20-2020 End: 91-73-7746iuug 1 tablet by mouth once dailyLevothyroxine (Synthroid) 25 mcg Tablet Discontinued 25 MCG PO Daily July 20, 2020 1:00am July 20, 2020 6:14pmliothyronine sodium 0.005 mg oral tablet (16 sources)l-TriiodothyronineStart: 21-71-7056kuye 1 tablet by mouth once daily Start: 59-67-4519dpeo 1 tablet by mouth once dailyCytomel 5 mcg Tab 5 mcg = 1 tab(s), Oral, Daily, Refills(s) 0 Start Date: 04/15/25 Status: Ordered Repeat number: 1Start: 65-50-5112rctu 1 tablet by mouth once dailyliothyronine (Cytomel) 5 MCG tablet TAKE 1 TABLET BY MOUTH EVERY DAY ON EMPTY STOMACH FOR 30 DAYS 01/13/2025 Activelisinopril 20 mg oral tablet (20 sources)Angiotensin Converting Enzyme InhibitorStart: 92-98-9715gjdc 1 tablet by mouth once dailyStart: 03-14-2022 End: 83-33-8223hvqp 1 tablet by mouth once dailyLisinopril 40 mg tablet Discontinued 40 MG PO Daily March 14, 2022 12:00am December 17, 2024 2:18pmStart: 07-20-2020 End: 81-78-7830Hmbginldjw 2.5 mg Tablet Discontinued 20 MG PO Twice daily July 20, 2020 1:00am August 07, 2020 3:01pmStart: 07-20-2020 End: 78-01-3835ghyd 20 mg by mouth twice dailyLisinopril Discontinued 20 MG PO Twice daily July 20, 2020 1:00am August 07, 2020 3:01pmloratadine 10 mg oral tablet (2 sources)Start: 64-33-8067dpvq 1 tablet by mouth once dailyStart: 04-15-2025 take 1 tablet by mouth once dailyloratadine 10 mg Tab 10 mg = 1 tab(s), Oral, Daily, Refills(s) 0 Start Date: 04/15/25 Status: OrderedRepeat number: 1magnesium oxide 400 mg oral tablet (1 source)Start: 63-85-6270bhmx 1 tablet by mouth once daily24 hr metoprolol succinate 25 mg extended release oral tablet (7 sources)beta-Adrenergic BlockerStart: 39-17-7663gayg 1 tablet by mouth once daily in the morningnystatin 438467 unt/ml topical cream (20 sources)Polyene AntifungalStart: 64-33-2076pxzjgtsn (Mycostatin) cream Indications: Skin candidiasis Apply topically 2 (two) times a day 30 g 3 12/09/2023 ActiveStart: 03-14-2022 End: 68-11-9012Qsayqkfh 100,000 unit/mL suspension Discontinued March 14, 2022 12:00am March 14, 2022 2:54amrOPINIRole 0.5 mg oral tablet (20 sources)Nonergot Dopamine AgonistStart: 07-28-1350wsea 1 tablet by mouth once daily at bedtimeStart: 03-14-2022 End: 56-95-8258iovp 0.5 mg by mouth once daily at bedtimeRopinirole 5 mg Tablet Discontinued 0.5 MG PO Daily at bedtime March 14, 2022 12:00am December 17, 2024 2:15pm administer 1-3 hours before bedtimeStart: 61-78-8218bdia 0.5 mg by mouth once daily at bedtimeRopinirole Active 0.5 MG PO Daily at bedtime March 14, 2022 12:00am administer 1-3 hours before bedtimesertraline 100 mg oral tablet (20 sources)Serotonin Reuptake InhibitorStart: 32-68-5173mivf 1 tablet by mouth once dailytraZODone hydrochloride 50 mg oral tablet (14 sources)Serotonin Reuptake InhibitorStart: 25-99-7271dsbd 1 tablet by mouth once daily at bedtime as neededStart: 87-62-6191kqti 1 tablet by mouth once daily at bedtimetraZODONE 50 mg Tab 50 mg = 1 tab(s), Oral, Once a day (at bedtime), Refills(s) 0 Start Date: 04/15/25 Status: Ordered Repeat number: 1Start: 03-14-2022 End: 03-87-0047zohd 1 tablet by mouth once daily at bedtimeTrazodone 50 mg Tablet Discontinued 50 MG PO Daily at bedtime March 14, 2022 12:00am March 6:08pmvitamin b12 1 mg oral tablet (1 source)Vitamin Y55Sylky: 99-09-1862eepw 1 tablet by mouth once daily in the morning Completed/Discontinued Medications MedicationDrug Class(es)DatesSig (Normalized)Sig (Original)acetaminophen 500 mg oral tablet (12 sources)Start: 04-04-2022 End: 64-28-9952lbqt 2 tablets by mouth every six hours as needed for pain Acetaminophen 500 mg Tablet Discontinued 1000 MG PO Q6H as needed for Fever Or Pain 0 0 April 04, 2022 12:00am May 16, 2025 2:28pmStart: 85-84-4852bwkm 1000 mg by mouth every six hoursAcetaminophen Active 1000 MG PO Q6H 0 April 04, 2022 12:00amStart: 22-81-9385pcfy 1000 mg by mouth every six hours Acetaminophen Active 1000 MG PO Q6H 0 April 04, 2022 12:00amStart: 04-04-2022 take 1000 mg by mouth every six hoursAcetaminophen Active 1000 MG PO Q6H 0 April 04, 2022 12:00amacetaminophen 300 mg / codeine phosphate 30 mg oral tablet (12 sources)Opioid AgonistStart: 04-02-2022 End: 23-73-2220hjgm 1 tablet by mouth every six hours as needed for pain Acetaminophen-Codeine 300-30 mg tablet Discontinued 1 TAB PO Q6H as needed for Pain April 02, 2022 12:00am April 09, 2022 12:27pmacetaminophen 325 mg / HYDROcodone bitartrate 5 mg oral tablet (12 sources)Opioid AgonistStart: 07-27-2020 End: 59-12-8348ohhj 1 tablet by mouth four times daily as needed for pain Hydrocodone-Acetaminophen ([place]) 5-325 mg Tablet Discontinued 1 TAB PO Four times daily as needed for Pain July 27, 2020 1:00am August 10, 2020 4:49pmbaclofen 10 mg oral tablet (12 sources)gamma-Aminobutyric Acid-ergic AgonistStart: 07-26-2020 End: 41-38-9184fuvp 1 tablet by mouth three times daily as needed for pain Baclofen 10 mg tablet Discontinued 10 MG PO Three times daily as needed for Pain July 26, 2020 1:00am August 10, 2020 3:06pmBevacizumab solution prefilled syringe 1.25 mg (6 sources)Start: 05-03-2025 End: 11-54-4353Nqdavawgcja solution prefilled syringe 1.25 mgStart: 05-03-2025 End: 51.25 mg, Intravitreal, Once PRN Procedure, Starting on Fri05/03/25 at 1521, For 1 doseStart: 05-03-2025 End: 52-89-5358Ybjtgsbdkqe solution prefilled syringe 1.25 mgStart: 05-03-2025 End: 51.25 mg, Intravitreal, Once PRN Procedure, Starting on Fri05/03/25 at 1517, For 1 doseStart: 03-23-2025 End: 92-84-6443Qxiljbwfmnv solution prefilled syringe 1.25 mgStart: 03-23-2025 End: 51.25 mg, Intravitreal, Once PRN Procedure, Starting on Fri03/23/25 at 1419, For 1 doseceFAZolin 200 mg/ml injectable solution (12 sources)Cephalosporin AntibacterialStart: 08-01-2020 End: 85-12-5632qzow 10 g intravenously every eight hoursCefazolin 10 gram Recon Soln Discontinued 2 GM IV Q8H 105 35 0 August 01, 2020 1:00am August 10, 2020 3:06pmStart: 08-01-2020 End: 63-49-3949yinq 2 g intravenously every eight hoursCefazolin Discontinued 2 GM IV Q8H 105 35 August 01, 2020 1:00am August 10, 2020 3:06pmcelecoxib 200 mg oral capsule (20 sources)Nonsteroidal Anti-inflammatory DrugStart: 08-07-2020 End: 39-65-5380cpsl 1 capsule by mouth at bedtimeCelecoxib (Celebrex) 200 mg capsule Discontinued 200 MG PO Bedtime August 07, 2020 1:00am March 16, 2022 9:32amStart: 07-20-2020 End: 51-31-3553hgsv 1 capsule by mouth twice daily as needed for anxiety Celecoxib 200 mg capsule Discontinued 200 MG PO Twice daily as needed for Anxiety July 20, 2020 1:00am August 02, 2020 2:52pmclotrimazole 10 mg/ml topical cream (18 sources)Azole AntifungalStart: 12-17-2024 End: 91-29-7915Psfbbhytvehq 1 % cream Discontinued 1 APPLIC TOPICAL Twice daily as needed for rash December 17, 2024 12:00am February 25, 2025 11:40amStart: 03-14-2022 End: 37-14-4521Upvnfhpekwxc 1 % cream Discontinued 1 APPLIC TOPICAL Daily as needed for Dry Skin March 14, 2022 12:00am April 09, 2022 12:27pmcolchicine 0.6 mg oral capsule (12 sources)Start: 07-20-2020 End: 82-44-1202xztb 1 capsule by mouth twice dailyColchicine 0.6 mg Capsule Discontinued 0.6 MG PO Twice daily July 20, 2020 1:00am July 20, 2020 6:15pmdexamethasone 6 mg oral tablet (12 sources)CorticosteroidStart: 03-16-2022 End: 38-14-6558fula 1 tablet by mouth once dailyDexamethasone 6 mg Tablet Discontinued 6 MG PO Daily 6 6 0 March 16, 2022 12:00am April 02, 2022 6:07pmhydroCHLOROthiazide 25 mg oral tablet (20 sources)Thiazide DiureticStart: 03-14-2022 End: 76-01-4585Qhxsqildqjelbeflrjs Discontinued MG TABLET March 14, 2022 12:00am March 14, 2022 2:54amStart: 07-27-2020 End: 40-73-8784jekc 1 tablet by mouth once dailyHydrochlorothiazide 25 mg Tablet Discontinued 25 MG PO Daily March 14, 2022 12:00am March 14, 2022 2:54am hydrOXYzine hydrochloride 25 mg oral tablet (12 sources)AntihistamineStart: 03-14-2022 End: 19-66-3440bywv 1 tablet by mouth once daily at bedtime as needed for anxietyHydroxyzine Hcl 25 mg tablet Discontinued 25 MG PO Daily at bedtime as needed for Anxiety March 14, 2022 12:00am April 09, 2022 12:27pm3 ml insulin aspart, human 100 unt/ml pen injector (10 sources)Insulin AnalogStart: 04-05-2022 End: 34-12-1450jrgkzl 1 dose by subcutaneous injection at bedtimeInsulin Aspart U-100 (Novolog Flexpen U-100 Insulin) 100 unit/mL (3 mL) Insulin Pen Discontinued 1 sliding scale dose SUBCUT Before meals and at bedtime December 17, 2024 12:00am February 25, 2025 11:41am3 ml insulin detemir 100 unt/ml pen injector (12 sources)Insulin AnalogStart: 03-16-2022 End: 98-15-5249Mshvrlf Detemir U-100 (Levemir Flextouch U100 Insulin) 100 unit/mL (3 mL) Insulin Pen Discontinued 40 UNIT SUBCUT Daily with breakfast March 16, 2022 12:00am December 17, 2024 2:13pm3 ml insulin lispro 100 unt/ml pen injector (12 sources)Insulin AnalogStart: 03-16-2022 End: 19-95-8496Drkjtyl Lispro (Humalog Kwikpen Insulin) 100 unit/mL Insulin Pen Discontinued 1 sliding scale dose SUBCUT Before meals and at bedtime Protocol: If the corrective scale dose has been administered within the past 4 hours, do not use corrective scale again unless otherwise directed Condition: 150-199 m g/dL Dose/Route: 2 unit Condition: 200-249 mg/dL Dose/Route: 3 unit Condition: 250-299 mg/dL Dose/Route: 5 unit Condition: 300-349 mg/dL Dose/Route: 7 unit Condition: 350-399 mg/dL Dose/Route: 8 unitCondition: greater than or = 400 mg/dL Dose/Route: 9 unit 5 0 March 16, 2022 12:00am March 12:27pm Sliding Scale ACHS Please contact the information source for Protocol details. Start: 03-16-2022 End: 15-90-9064hicrdy 1 dose by subcutaneous injection at bedtimeInsulin Lispro (Humalog Kwikpen Insulin) 100 unit/mL Insulin Pen Discontinued 1 sliding scale dose SUBCUT Before meals and at bedtime March 16, 2022 12:00am April 09, 2022 12:27pm Sliding Scale ACHS Please contact the information source for Protocol details.3 ml liraglutide 6 mg/ml pen injector (12 sources)GLP-1 Receptor AgonistStart: 04-04-2022 End: 02-21-8589wpdvhd 0.6 mg by subcutaneous injection once daily, then inject 1.2 mg by subcutaneous injection once daily, then inject 1.8 mg by subcutaneous injection once dailyLiraglutide (Victoza 3-Bora) 0.6 mg/0.1 mL (18 mg/3 mL) pen injector Discontinued 1.8 MG SUBCUT Daily April 04, 2022 12:00am December 17, 2024 2:22pm start 0.6 mg sq daily x 1 week then 1.2 mg sq daily x 1 week then 1.8 mg sq daily thereafterStart: 74-07-9225kjjbhk 0.6 mg by subcutaneous injection once daily, then inject 1.2 mg by subcutaneous injection once daily, then inject 1.8 mg by subcutaneous injection once dailyLiraglutide (Victoza 3- Bora) 0.6 mg/0.1 mL (18 mg/3 mL) pen injector Active 1.8 MG SUBCUT Daily April 04, 2022 12:00am start 0.6 mg sq daily x 1 week then 1.2 mg sq daily x 1 week then 1.8 mg sq daily thereafterStart: 73-43-1939sdlcvm 0.6 mg by subcutaneous injection once daily, then inject 1.2 mg by subcutaneous injection once daily, then inject 1.8 mg by subcutaneous injection once dailyLiraglutide (Victoza 3- Bora) 0.6 mg/0.1 mL (18 mg/3 mL) pen injector Active 1.8 MG SUBCUT Daily April 04, 2022 12:00am start 0.6 mg sq daily x 1 week then 1.2 mg sq daily x 1 week then 1.8 mg sq daily thereafterpioglitazone 30 mg oral tablet (12 sources)Peroxisome Proliferator Receptor alpha Agonist, Peroxisome Proliferator Receptor gamma Agonist, ThiazolidinedioneStart: 03-14-2022 End: 23-21-7645tliu 1 tablet by mouth once dailyPioglitazone 30 mg tablet Discontinued 30 MG PO Daily March 14, 2022 12:00am April 09, 2022 12:27pm predniSONE 10 mg oral tablet (12 sources)Start: 03-14-2022 End: 64-26-3910ntuc 2 tablets by mouth once dailyPrednisone 10 mg tablet Discontinued 20 MG PO Daily March 14, 2022 12:00am March 16, 2022 9:32am Start: 03-14-2022 End: 06-70-4881jeeu 20 mg by mouth once dailyPrednisone Discontinued 20 MG PO Daily March 14, 2022 12:00am March 16, 2022 9:32amtriamcinolone acetonide 1 mg/ml topical lotion (12 sources)CorticosteroidStart: 08-02-2020 End: 57-35-2985Qzmskpnvwtqpl Acetonide 0.1 % Lotion Discontinued 1 APPLIC TOPICAL Twice daily 0 0 August 02, 2020 1:00am April 09, 2022 12:27pmzinc sulfate 220 mg oral capsule (12 sources)Start: 03-16-2022 End: 15-87-5741Xktn Sulfate (Orazinc) 50 mg zinc (220 mg) Capsule Discontinued 220 MG PO Daily 31 7 0 March 16, 2022 12:00am April 02, 2022 6:08pm Problems Active Problems Problem ClassificationProblemDateDocumented DateEpisodic/ChronicAcute and unspecified renal failure (16 sources)Injury of kidney; Translations: [Acute kidney failure, unspecified] 93-60-6629WfnldxmjCvlwivh disorders (16 sources)Generalized anxiety disorder; Translations: [Generalized anxiety disorder]Onset: 491441-54-6176WdkpakvTrwgxvyzp infection; unspecified site (12 sources)Bacteremia due to Staphylococcus aureus; Translations: [Bacteremia] 51-80-2520KjrptytkNokylfr dysrhythmias (17 sources)Paroxysmal atrial fibrillation; Translations: [Paroxysmal atrial fibrillation]Onset: 337489-42-6530QcvvlkuAeezbapg (9 sources)Bilateral age-related nuclear cataracts; Translations: [Age-related nuclear cataract, bilateral]Onset: 483520-52-8353ZvppjwdAkmsrwx kidney disease (19 sources)Chronic kidney disease stage 3; Translations: [Stage 3 chronic kidney disease]Onset: 815615-67-3265SkwuypjCnbfoyw kidney disease (2 sources)Chronic kidney disease; Translations: [CHRONIC KIDNEY DISEASE STAGE 3A]Onset: 95-08-6580Mnuzzxx obstructive pulmonary disease and bronchiectasis (16 sources)Chronic obstructive lung disease; Translations: [Chronic obstructive pulmonary disease, unspecified]Onset: 084367-84-2555ZfwfvhiFwkrjaccvh heart failure; nonhypertensive (19 sources)Congestive heart failure; Translations: [Heart failure, unspecified] Onset: 196022-73-2514IraffndKbleowxg atherosclerosis and other heart disease (20 sources)Atherosclerotic heart disease of [place] coronary artery without angina pectoris; Translations: [Coronary arteriosclerosis]Onset: 05-20-2022 52-96-9715NwvbnteLcpztdfkns and other anemia (1 source)Anemia; Translations: [Anemia, unspecified]Onset: 69-17-3756Ovhtsqsm Diabetes mellitus with complications (20 sources)Type 2 diabetes mellitus with hyperglycemia; Translations: [Type 2 diabetes mellitus with diabetic chronic kidney disease]Onset: 80-72-5916Abprjzy Diabetes mellitus without complication (20 sources)Diabetes mellitus; Translations: [Type 2 diabetes mellitus without complications]Onset: 066553-49-4675HdsnhvkFlsnmqal mellitus without complication (16 sources)Hyperglycemia; Translations: [Hyperglycemia, unspecified]03-14-2022 EpisodicDiseases of white blood cells (12 sources)Leukocytosis; Translations: [Elevated white blood cell count, unspecified]75-69-1026EiqofmqWbdjihuvi of lipid metabolism (19 sources)Hyperlipidemia, unspecified; Translations: [Dyslipidemia]Onset: 993879-26-6894YslnvpzM Codes: Fall (19 sources)Fall; Translations: [Unspecified fall, initial encounter]Onset: 002099-28-5515VmfvhenpNfwdrqlnij disorders (17 sources)Gastro-esophageal reflux disease without esophagitis; Translations: [Gastroesophageal reflux disease]Onset: 674477-71-6371BbbisiuMgjvhpgxj hypertension (20 sources)Hypertensive disorder; Translations: [Essential (primary) hypertension]Onset: 515311-39-3381NfgxcqmNgaqb of unknown origin (12 sources)Fever; Translations: [Fever, unspecified]09-29-4606RmzjvzfiEhbpu and electrolyte disorders (20 sources)Hyponatremia; Translations: [Hypo-osmolality and hyponatremia] 43-60-5993QenotbvrHujgihttnxhgg symptoms and ill-defined conditions (11 sources)Blood in urine; Translations: [Hematuria, unspecified]04-12-2022 EpisodicHypertension with complications and secondary hypertension (3 sources)Hypertensive chronic kidney disease with stage 1 through stage 4 chronic kidney disease, or unspecified chronic kidney disease; Translations: [Hypertensive heart disease with heart failure]Onset: 77-64-4445YldhfisMrrnbqyk disorders (17 sources)Hypergammaglobulinemia; 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, unspecified]Onset: 978318-45-4151GcikmkgJicoawe and fatigue (20 sources)Asthenia; Translations: [Weakness]Onset: EpisodicMood disorders (5 sources)Major depressive disorder, single episode, unspecified; Translations: [Depressive disorder]Onset: 511252-50-4693GzuyyqwLhsjxek (2 sources)Onychomycosis due to dermatophyte ; Translations: [Tinea unguium] 25-14-9786AkehdqqoPqtleehvzsurcy (16 sources)Unilateral primary osteoarthritis, left hip; Translations: [Primary gonarthrosis, bilateral]Onset: 313454-90-9035CmhiecnYekqo aftercare (1 source)Other terminal press operator (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; Translations: [OTH DICE DEALER CURRENT DRUG THERAPY]Onset: 78-36-0091MsosukbpDnhbp aftercare (6 sources)Long-term current use of insulin; Translations: [intermediate card tender (current) use of insulin]29-33-8435YebpizhdIshzp circulatory disease (2 sources)Other specified disorders of arteries and arterioles; Translations: [Other specified disorders of arteries and arterioles]Onset: 69-38-0690Kojrfdv Other circulatory disease (1 source)Low blood pressure; Translations: [Hypotension, unspecified]Episodic Other connective tissue disease (1 source)Yelelvmnyhen73-49-9573QoujdzvkDuuev gastrointestinal disorders (12 sources)Abdominal mass; Translations: [Intra-abdominal and pelvic swelling, mass and lump, unspecified site]22-34-6772WnriwhhcMyxcm hematologic conditions (12 sources)ESR raised; Translations: [Elevated erythrocyte sedimentation rate] 10-56-2981PcoiufgxJfoxx hereditary and degenerative nervous system conditions (16 sources)Restless legs; Translations: [Restless legs syndrome]Onset: 558736-25-1121NokmkcsDdrcv liver diseases (1 source)Unspecified cirrhosis of liver; Translations: [UNSPECIFIED CIRRHOSIS OF LIVER]Onset: 31-17-7848OqmdjvkKlise liver diseases (1 source)Fatty (change of) liver, not elsewhere classified; Translations: [FATTY CHANGE LIVER NEC]Onset: 36-46-1805KaimtbtXxkze liver diseases (17 sources)Cirrhosis of liver; Translations: [Unspecified cirrhosis of liver] Onset: 116461-72-0097EjhzxcmFsqav liver diseases (1 source)Steatosis of fooea93-03-7608VopaooiRaxic lower respiratory disease (12 sources)Hypoxemia; Translations: [Hypoxemia]20-28-0498DoxpgdxqNqqwm lower respiratory disease (4 sources)Hypoxemia; Translations: [Hypoxemia]38-82-2454FddtybthWzukd nutritional; endocrine; and metabolic disorders (12 sources)Morbid obesity; Translations: [Morbid (severe) obesity due to excess calories]31-52-5122IzjxpqvCxlia nutritional; endocrine; and metabolic disorders (12 sources)Hypomagnesemia; Translations: [Hypomagnesemia]36-87-4371FaqpilgVuqis nutritional; endocrine; and metabolic disorders (7 sources)Morbid (severe) obesity due to excess calories; Translations: [Morbid obesity]Onset: 581338-64-7641XzfjeguAmmbr nutritional; endocrine; and metabolic disorders (3 sources)Body mass index (BMI) 45.0-49.9, adult; Translations: [BODY MASS INDEX BMI 45.0-49.9 ADULT]Onset: 38-73-1881FguuhubPvrwj nutritional; endocrine; and metabolic disorders (1 source)Body mass index (BMI) 50.0-59.9, adult; Translations: [BODY MASS INDEX BMI 50.0-59.9 ADULT]Onset: 27-57-0923QsmmvwbNfucf nutritional; endocrine; and metabolic disorders (15 sources)Hyperammonemia, type III; Translations: [Disorder of urea cycle metabolism, unspecified]Onset: 144097-47-8153NrlvfgkQerzv nutritional; endocrine; and metabolic disorders (7 sources)Failure to qggdue13-21-0059UnmbjvbyVpamy screening for suspected conditions (not mental disorders or infectious disease) (12 sources)Raised TSH level; Translations: [Other specified abnormal findings of blood chemistry]Onset: 232786-17-9095LfyocmizFserp skin disorders (12 sources)Eruption; Translations: [Rash and other nonspecific skin eruption] 82-19-7170FwwwvwjoZkzxq skin disorders (2 sources)Dystrophia unguium; Translations: [Nail dystrophy]80-62-1098Zlvbyduc Other upper respiratory disease (15 sources)Allergic rhinitis due to pollen; Translations: [Allergic rhinitis due to pollen]Onset: 663375-73-2763DsxmhzbYcal-; endo-; and myocarditis; cardiomyopathy (except that caused by tuberculosis or sexually transmitted disease) (12 sources)Staphylococcal endocarditis; 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 subacute infective endocarditis]29-75-0883PxhhljyiOcyezqly codes; unclassified (20 sources)Obstructive sleep apnea syndrome; Translations: [Obstructive sleep apnea (adult) (pediatric)]Onset: 802886-45-2275GmuvhbzYfkxllxi codes; unclassified (6 sources)Obstructive sleep apnea (adult) (pediatric); Translations: [Obstructive sleep apnea (adult)(pediatric)]Onset: 497492-24-4738Dbfmffk Residual codes; unclassified (12 sources)Unable to perform personal care activity; Translations: [Other specified health status]17-57-7515PkqnnqtfNgslhrdb codes; unclassified (4 sources)Other specified health status; Translations: [Other specified conditions influencing health status]76-39-6346OqcmvpscZjdlsdrqcae; intervertebral disc disorders; other back problems (20 sources)Lumbosacral spondylosis with radiculopathy; Translations: [Other spondylosis with radiculopathy, lumbosacral region]Onset: ChronicSpondylosis; intervertebral disc disorders; other back problems (17 sources)Backache; Translations: [Dorsalgia, unspecified]Onset: 02-01-2022 00-70-7215UphdmezeUnbugso and intentional self-inflicted injury (4 sources)Suicidal thoughts; Translations: [Suicidal ideations]05-16-2025 EpisodicSuperficial injury; contusion (19 sources)Abrasion, elbow area; Translations: [Abrasion of unspecified elbow, initial encounter]Onset: 096049-45-0863WiamyvhxTigezmy disorders (20 sources)Hypothyroidism; Translations: [Hypothyroidism, unspecified]Onset: 106949-82-4989RltoozxWunbkotbfdit (9 sources)Failure to thrive; Translations: [Failure to thrive]04-08-2022 Unclassified (1 source)LOW BACK PAIN, UNSPECIFIED; Translations: [LOW BACK PAIN, UNSPECIFIED] Onset: 68-15-1198Eacccvpykbsz (2 sources)COUGH, UNSPECIFIED; Translations: [COUGH, UNSPECIFIED]Onset: 23-44-7872Jhmoljgstarr (1 source)CONTACT W/AND (SUSP) EXPOS COVID-19; Translations: [CONTACT W/AND (SUSP) EXPOS COVID-19]Onset: 60-68-1064Mbevjlksfkkw (2 sources)Neurosurgeon office information per patient requestUnclassified (2 sources)Neurology office information per patient requestUnclassified (2 sources)Call with any medical concerns.Unclassified (1 source)Call to make an appointment with your primary traffic safety administrator in 2-4 weeks after discharge.Unclassified (1 source)A Data Reporting Analyst will call you next day between 8am & 5pm. If you miss this call please call back as soon as possible.Urinary tract infections (12 sources)Acute urinary tract infection; Translations: [Urinary tract infection, site not specified]80-23-3675HkbuoxynDhjvl infection (16 sources)Disease caused by 2019-nCoV; Translations: [COVID-19]03-14-2022 Episodic Past or Other Problems Problem ClassificationProblemDateDocumented DateEpisodic/ChronicAbdominal pain (1 source)Unspecified abdominal pain; Translations: [UNSPECIFIED ABDOMINAL PAIN] Onset: 89-21-5371GontevakJolvl bronchitis (1 source)Acute bronchitis, unspecified; Translations: [ACUTE BRONCHITIS UNSPECIFIED]Onset: 04-09-5709PxrshvhvUggvspsokee chest pain (1 source)Other chest pain; Translations: [OTHER CHEST PAIN]Onset: 01-28-2022 EpisodicOther aftercare (1 source)nursing home (current) use of insulin; Translations: [DICE DEALER CURRENT USE OF INSULIN]Onset: 41-95-9026AasqvkzgQywmv connective tissue disease (4 sources)Iliotibial band syndrome, left leg; Translations: [ILIOTIBIAL BAND SYNDROME LEFT LEG]Onset: 49-69-0091VvosblccYkcfi connective tissue disease (1 source)Other specified soft tissue disorders; Translations: [OTHER SPEC SOFT TISSUE DISORDERS]Onset: 68-75-1571NepcwljgFtuim fractures (1 source)Wedge compression fracture of T9-T10 vertebra, subsequent encounter for fracture with routine healing; Translations: [Wedge compression fracture of T9-T10 vertebra, subsequent encounter for fracture with routine healing]Onset: 21-21-1963ScoteqqgSnswv injuries and conditions due to external causes (4 sources)Other specified injuries of head, initial encounter; Translations: [OTH SPEC INJURIES HEAD INITIAL ENC]Onset: 46-69-4316YrqbvfowUtlhf injuries and conditions due to external causes (1 source)History of falling; Translations: [HISTORY OF FALLING]Onset: 26-07-0824EdckxzsxFxbhb lower respiratory disease (3 sources)Shortness of breath; Translations: [SHORTNESS OF BREATH]Onset: 05-78-1442QketwrqpByfjr non-traumatic joint disorders (3 sources)Pain in left knee; Translations: [PAIN IN LEFT KNEE]Onset: 01-18-2022 EpisodicResidual codes; unclassified (1 source)Edema, unspecified; Translations: [EDEMA UNSPECIFIED]Onset: 01-28-2022 EpisodicResidual codes; unclassified (15 sources)Insomnia; Translations: [Insomnia, unspecified]Onset: 09-16-2023 30-23-5690HydlcaxoNlfktziccdcm (1 source)COUGH, UNSPECIFIED; Translations: [COUGH, UNSPECIFIED]Onset: 01-24-2022 Results Test NameValueInterpretationReference RangeFacilityBasic Metabolic Panelon 90-61-4456Fypsj gap [Moles/Vol]8.4 mmol/LNormal6.0-15.0[facility] Physician GroupComment on above:Performed By: #### GLULS #### Point of Care testing ,Calcium [Mass/Vol]8.6 mg/dLNormal8.6-10.3The [facility] Physician GroupComment on above:Performed By: #### GLULS #### Point of Care testing ,Chloride [Moles/Vol]103 mmol/NBvgbyu87-552Ocw [facility] Physician GroupComment on above:Performed By: #### GLULS #### Point of Care testing ,CO2 [Moles/Vol]28.6 mmol/IJiqlmp36.0-31.0The [facility] Physician GroupComment on above:Performed By: #### GLULS #### Point of Care testing ,Creatinine [Mass/Vol]1.14 mg/dLNormal0.70-1.30The [facility] Physician [facility] Comment on above:Performed By: #### GLULS #### Point of Care testing ,Creatinine Clr Calc Grvkifmv49.75NormalThe [facility] Physician GroupComment on above:Result Comment: PERFORMED BY: [address] [place] [address] PATHOLOGIST ADMISSIONS DIRECTOR HILDA LEE M.D.Performed By: #### GLULS #### Point of Care testing ,GFR/1.73 sq M.predicted MDRD (S/P/Bld) [Vol rate/Area]mL/min/{1.73_m2}NormalThe [facility] Physician GroupComment on above:Performed By: #### GLULS #### Point of Care testing ,Glucose [Mass/Vol]253 mg/cYErpa95-469Aka [facility] Physician GroupComment on above:Result Comment: Random Glucose Reference Range is dependent on time and content of last meal. Glucose of more than 200 mg/dL in a nonstressed, ambulatory subject supports the diagnosis of Diabetes Mellitus. ADA recommended reference rangePerformed By: #### GLULS #### Point of Care testing ,Potassium [Moles/Vol]4.0 mmol/LNormal3.5-5.1The [facility] Physician [facility] Comment on above:Performed By: #### GLULS #### Point of Care testing ,Sodium [Moles/Vol]136 mmol/BRhcpvp037-761Pza [facility] Physician GroupComment on above:Performed By: #### GLULS #### Point of Care testing ,Urea nitrogen [Mass/Vol]16 mg/dLNormal7-25The [facility] Physician GroupComment on above:Performed By: #### GLULS #### Point of Care testing ,Complete Blood Count Auto Diffon 68-41-2716Detoshblc (Bld) [#/Vol]0.1 10*3/uL Normal0.0-0.2The [facility] Physician GroupComment on above:Result Comment: PERFORMED BY: [facility] [address] [place] [address] PATHOLOGIST ADMISSIONS DIRECTOR HILDA LEE M.D.Performed By: #### GLULS #### Point of Care testing ,Basophils/100 WBC (Bld)1.2 %Normal.The [facility] Physician GroupComment on above:Performed By: #### GLULS #### Point of Care testing ,Eosinophils (Bld) [#/Vol]0.5 10*3/uLHigh0.0-0.45The [facility] Comment on above:Performed By: #### GLULS #### Point of Care testing ,Eosinophils/100 WBC (Bld)7.9 %Normal.The [facility] Physician GroupComment on above:Performed By: #### GLULS #### Point of Care testing ,Erythrocyte distribution width (RBC) [Ratio]17.3 %High12.0-14.8The [facility] Physician GroupComment on above:Performed By: #### GLULS #### Point of Care testing ,Hematocrit (Bld) [Volume fraction]29.8 %Low38.8-50.0The [facility] Physician GroupComment on above:Performed By: #### GLULS #### Point of Care testing ,Hemoglobin (Bld) [Mass/Vol]9.6 g/dLLow13.0-17.0The [facility] Comment on above:Performed By: #### GLULS #### Point of Care testing ,Lymphocytes (Bld) [#/Vol]1.1 10*3/uLNormal1.00-4.8The [facility] Comment on above:Performed By: #### GLULS #### Point of Care testing ,Lymphocytes/100 WBC (Bld)18.3 %Normal.The [facility] Physician GroupComment on above:Performed By: #### GLULS #### Point of Care testing ,MCH (RBC) [Entitic mass]27.0 pgLow27.5-35.2The [facility] Physician GroupComment on above:Performed By: #### GLULS #### Point of Care testing ,MCV (RBC) [Entitic vol]83.7 cQOtbywx57.5-101The [facility] Comment on above:Performed By: #### GLULS #### Point of Care testing ,Mean Corpuscular HGB Conc32.3 g/dLLow32.5-35.6The [facility] Physician [facility] Comment on above:Performed By: #### GLULS #### Point of Care testing ,Monocytes (Bld) [#/Vol]0.6 10*3/uLNormal0.0-0.8The [facility] Comment on above:Performed By: #### GLULS #### Point of Care testing ,Monocytes/100 WBC (Bld)10.1 %Normal.The [facility] Physician GroupComment on above:Performed By: #### GLULS #### Point of Care testing ,Neutrophils (Bld) [#/Vol]3.9 10*3/uLNormal1.8-7.7The [facility] Physician [facility] Comment on above:Performed By: #### GLULS #### Point of Care testing ,Neutrophils/100 WBC (Bld)62.5 %Normal.The [facility] Physician GroupComment on above:Performed By: #### GLULS #### Point of Care testing ,NRBC%0.0 /100{WBC}Normal0-0.5The [facility] Physician GroupComment on above: Performed By: #### GLULS #### Point of Care testing ,Platelet mean volume (Bld) [Entitic vol]7.7 fLNormal6.6-10.1The [facility] Physician GroupComment on above:Performed By: #### GLULS #### Point of Care testing ,Platelets (Bld) [#/Vol]188 10*3/eSLyftkg344-379Ltq [facility] Comment on above:Performed By: #### GLULS #### Point of Care testing ,RBC (Bld) [#/Vol]3.57 10*6/uLLow3.90-5.60The [facility] Physician [facility] HospitalComment on above:Performed By: #### GLULS #### Point of Care testing ,WBC (Bld) [#/Vol]6.2 10*3/uLNormal4.1-10.5The [facility] Physician GroupComment on above:Performed By: #### GLULS #### Point of Care testing ,White Blood Count6.2 [CFU]/mLNormal4.1-10.5ThWeiser Memorial Hospital Physician GroupComment on above:Performed By: #### GLULS #### Point of Care testing ,Glucose Poct Glucometerson 74-16-7745Aaurnog [Mass/Vol]234 mg/dLNoUNC Health Rex Physician [facility] HospitalComment on above:Result Comment: Random Glucose Reference Range is dependent on time and content of last meal. Glucose of more than 200 mg/dL in a nonstressed, ambulatory subject supports the diagnosis of Diabetes Mellitus. PERFORMED BY: [place] [address] PATHOLOGIST ADMISSIONS DIRECTOR HILDA LEE M.D.Performed By: #### GLULS #### Point of Care testing ,Glucose [Mass/Vol]174 mg/dLNCH Healthcare System - [facility] Physician [facility] HospitalComment on above: Result Comment: Random Glucose Reference Range is dependent on time and content of last meal. Glucose of more than 200 mg/dL in a nonstressed, ambulatory subject supports the diagnosis of Diabetes Mellitus. PERFORMED BY: [place] [address] PATHOLOGIST ADMISSIONS DIRECTOR HILDA LEE M.D.Performed By: #### PT, PLT #### [place] [address] USAGlucose Poct Glucometerson 61-71-1799Ioyaxyu [Mass/Vol]224 mg/dLNormalThe [place] Physician GroupComment on above:Result Comment: Random Glucose Reference Range is dependent on time and content of last meal. Glucose of more than 200 mg/dL in a nonstressed, ambulatory subject supports the diagnosis of Diabetes Mellitus. PERFORMED BY: [place] [address] PATHOLOGIST ADMISSIONS DIRECTOR HILDA LEE M.D.Performed By: #### GLULS #### Point of Care testing ,Glucose [Mass/Vol]233 mg/dLNCH Healthcare System - [facility] [place] Physician GroupComment on above: Result Comment: Random Glucose Reference Range is dependent on time and content of last meal. Glucose of more than 200 mg/dL in a nonstressed, ambulatory subject supports the diagnosis of Diabetes Mellitus. PERFORMED BY: [place] [address] PATHOLOGIST ADMISSIONS DIRECTOR HILDA LEE M.D.Performed By: #### GLULS #### Point of Care testing ,Glucose [Mass/Vol]282 mg/dLNoUNC Health Rex Physician GroupComment on above: Result Comment: Random Glucose Reference Range is dependent on time and content of last meal. Glucose of more than 200 mg/dL in a nonstressed, ambulatory subject supports the diagnosis of Diabetes Mellitus. PERFORMED BY: [place] [address] PATHOLOGIST ADMISSIONS DIRECTOR HILDA LEE M.D.Performed By: #### GLULS #### Point of Care testing ,Amipncq8Grl8: Cleaned MeterNoUNC Health Rex Physician GroupComment on above: Result Comment: PERFORMED BY: [place] [address] PATHOLOGIST ADMISSIONS DIRECTOR HILDA LEE M.D.Performed By: #### PT, PLT #### [place] [address] USAGlucose [Mass/Vol]192 mg/dLNoUNC Health Rex Physician GroupComment on above:Result Comment: Random Glucose Reference Range is dependent on time and content of last meal. Glucose of more than 200 mg/dL in a nonstressed, ambulatory subject supports the diagnosis of Diabetes Mellitus.Performed By: #### PT, PLT #### [place] [address] USAGlucose Poct Glucometerson 60-53-2229Dbkijrb1Fnb1: Cleaned MeterNoUNC Health Rex Physician GroupComment on above:Result Comment: PERFORMED BY: [place] [address] PATHOLOGIST ADMISSIONS DIRECTOR HILDA LEE M.D.Performed By: #### PT, PLT #### [place] [address] USAGlucose [Mass/Vol]214 mg/dLNoUNC Health Rex Physician GroupComment on above:Result Comment: Random Glucose Reference Range is dependent on time and content of last meal. Glucose of more than 200 mg/dL in a nonstressed, ambulatory subject supports the diagnosis of Diabetes Mellitus.Performed By: #### PT, PLT #### [place] [address] [id number]: Cleaned MeterNoUNC Health Rex Physician GroupComment on above:Result Comment: PERFORMED BY: [place] [address] PATHOLOGIST ADMISSIONS DIRECTOR HILDA LEE M.D.Performed By: #### PT, PLT #### [place] [address] USAGlucose [Mass/Vol]243 mg/dLNoUNC Health Rex Physician GroupComment on above:Result Comment: Random Glucose Reference Range is dependent on time and content of last meal. Glucose of more than 200 mg/dL in a nonstressed, ambulatory subject supports the diagnosis of Diabetes Mellitus.Performed By: #### PT, PLT #### [place] [address] [id number]: Cleaned MeterNormBroward Health Imperial Point Physician GroupComment on above:Result Comment: PERFORMED BY: [place] [address] PATHOLOGIST ADMISSIONS DIRECTOR HILDA LEE M.D.Performed By: #### PT, PLT #### [place] [address] USAGlucose [Mass/Vol]229 mg/dLNoUNC Health Rex Physician GroupComment on above:Result Comment: Random Glucose Reference Range is dependent on time and content of last meal. Glucose of more than 200 mg/dL in a nonstressed, ambulatory subject supports the diagnosis of Diabetes Mellitus.Performed By: #### PT, PLT #### [place] [address] USAGlucose [Mass/Vol]174 mg/dLNoUNC Health Rex Physician GroupComment on above:Result Comment: Random Glucose Reference Range is dependent on time and content of last meal. Glucose of more than 200 mg/dL in a nonstressed, ambulatory subject supports the diagnosis of Diabetes Mellitus. PERFORMED BY: [place] [address] PATHOLOGIST ADMISSIONS DIRECTOR HILDA LEE M.D.Performed By: #### PT, PLT #### [place] [address] USAGlucose Poct Glucometerson 90-14-1742Wwdscir [Mass/Vol]244 mg/dLNoUNC Health Rex Physician GroupComment on above:Result Comment: Random Glucose Reference Range is dependent on time and content of last meal. Glucose of more than 200 mg/dL in a nonstressed, ambulatory subject supports the diagnosis of Diabetes Mellitus. PERFORMED BY: [place] [address] PATHOLOGIST ADMISSIONS DIRECTOR HILDA LEE M.D.Performed By: #### PT, PLT #### [place] [address] [id number]: Cleaned MeterNoUNC Health Rex Physician GroupComment on above:Result Comment: PERFORMED BY: [place] [address] PATHOLOGIST ADMISSIONS DIRECTOR HILDA LEE M.D.Performed By: #### PT, PLT #### [address] [place] [address] [place] [address] USAGlucose [Mass/Vol]221 mg/dLNoUNC Health Rex Physician GroupComment on above:Result Comment: Random Glucose Reference Range is dependent on time and content of last meal. Glucose of more than 200 mg/dL in a nonstressed, ambulatory subject supports the diagnosis of Diabetes Mellitus.Performed By: #### PT, PLT #### [facility] [address] [place] [address] [id number]: Cleaned MeterNoUNC Health Rex Physician GroupComment on above:Result Comment: PERFORMED BY: [place] [address] PATHOLOGIST ADMISSIONS DIRECTOR HILDA LEE M.D.Performed By: #### GLULS #### Point of Care testing ,Glucose [Mass/Vol]268 mg/dLNCH Healthcare System - North Naples Physician GroupComment on above: Result Comment: Random Glucose Reference Range is dependent on time and content of last meal. Glucose of more than 200 mg/dL in a nonstressed, ambulatory subject supports the diagnosis of Diabetes Mellitus.Performed By: #### GLULS #### Point of Care testing ,Glucose [Mass/Vol]208 mg/dLNCH Healthcare System - North Naples Physician GroupComment on above: Result Comment: Random Glucose Reference Range is dependent on time and content of last meal. Glucose of more than 200 mg/dL in a nonstressed, ambulatory subject supports the diagnosis of Diabetes Mellitus. PERFORMED BY: [place] [address] PATHOLOGIST ADMISSIONS DIRECTOR HILDA LEE M.D.Performed By: #### PT, PLT #### [facility] [address] [place] [address] USAGlucose Poct Glucometerson 81-61-7082Pmekivt [Mass/Vol]226 mg/dLNCH Healthcare System - North Naples Physician GroupComment on above:Result Comment: Random Glucose Reference Range is dependent on time and content of last meal. Glucose of more than 200 mg/dL in a nonstressed, ambulatory subject supports the diagnosis of Diabetes Mellitus. PERFORMED BY: [address] [place] [address] PATHOLOGIST ADMISSIONS DIRECTOR HILDA LEE M.D.Performed By: #### GLULS #### Point of Care testing ,Glucose [Mass/Vol]224 mg/dLNoUNC Health Rex Physician GroupComment on above: Result Comment: Random Glucose Reference Range is dependent on time and content of last meal. Glucose of more than 200 mg/dL in a nonstressed, ambulatory subject supports the diagnosis of Diabetes Mellitus. PERFORMED BY: [place] [address] PATHOLOGIST ADMISSIONS DIRECTOR HILDA LEE M.D.Performed By: #### TSH3 wRFLX, LIPID, [id number] #### [place] [address] USAGlucose [Mass/Vol]225 mg/dLNoUNC Health Rex Physician GroupComment on above:Result Comment: Random Glucose Reference Range is dependent on time and content of last meal. Glucose of more than 200 mg/dL in a nonstressed, ambulatory subject supports the diagnosis of Diabetes Mellitus. PERFORMED BY: [place] [address] PATHOLOGIST ADMISSIONS DIRECTOR HILDA LEE M.D.Performed By: #### TSH3 wRFLX, LIPID, [id number] #### [place] [address] USAGlucose [Mass/Vol]178 mg/dLNoUNC Health Rex Physician GroupComment on above:Result Comment: Random Glucose Reference Range is dependent on time and content of last meal. Glucose of more than 200 mg/dL in a nonstressed, ambulatory subject supports the diagnosis of Diabetes Mellitus. PERFORMED BY: [place] [address] PATHOLOGIST ADMISSIONS DIRECTOR HILDA LEE M.D.Performed By: #### TSH3 wRFLX, LIPID, [id number] #### [place] [address] USAA1C with Estimated Average Gluon 02-51-4384Snnfqds [Mass/Vol]197 mg/dLNoSaint John's Saint Francis Hospitallands Physician GroupComment on above:Result Comment: PERFORMED BY: [place] [address] PATHOLOGIST ADMISSIONS DIRECTOR HILDA LEE M.D.Performed By: #### TSH3 wRFLX, LIPID, [id number] #### [place] [id number] CZPVmS4e (Bld) [Mass fraction]8.5 %High4.3-5.6The [facility] Physician GroupComment on above:Result Comment: Increased risk for diabetes: 5.7 - 6.4 diabetes: >6.4 glycemic control for adults with diabetes: <7.0Performed By: #### TSH3 wRFLX, LIPID, [id number] #### [place] [address] USAComplete Blood Count Auto Diffon 03-06-8687Rokhpmiwq (Bld) [#/Vol]0.1 10*3/uLNormal0.0-0.2The [facility] Hospital Physician GroupComment on above: Result Comment: PERFORMED BY: [place] [address] PATHOLOGIST ADMISSIONS DIRECTOR HILDA LEE M.D.Performed By: #### TSH3 wRFLX, LIPID, [id number] #### [place] [id number] USABasophils/100 WBC (Bld)1.3 %Normal.The [facility] Hospital Physician GroupComment on above:Performed By: #### TSH3 wRFLX, LIPID, [id number] #### [address] [address] USAEosinophils (Bld) [#/Vol]0.4 10*3/uLNormal0.0-0.45The [facility] Physician GroupComment on above:Performed By: #### TSH3 wRFLX, LIPID, [id number] #### [place] [id number] USAEosinophils/100 WBC (Bld)7.5 %Normal.The [facility] Physician GroupComment on above:Performed By: #### TSH3 wRFLX, LIPID, [id number] #### [place] [address] USAErythrocyte distribution width (RBC) [Ratio]17.6 %High 12.0-14.8The [facility] Hospital Physician GroupComment on above:Performed By: #### TSH3 wRFLX, LIPID, [id number] #### [place] [address] USAHematocrit (Bld) [Volume fraction]29.8 %Low38.8-50.0The [facility] Physician GroupComment on above:Performed By: #### TSH3 wRFLX, LIPID, [id number] #### [place] [address] USAHemoglobin (Bld) [Mass/Vol]9.7 g/dLLow13.0-17.0The [facility] Physician GroupComment on above:Performed By: #### TSH3 wRFLX, LIPID, [id number] #### [place] [address] USALymphocytes (Bld) [#/Vol]1.2 10*3/uLNormal1.00-4.8The [facility] Physician GroupComment on above:Performed By: #### TSH3 wRFLX, LIPID, [id number] #### [place] [address] USALymphocytes/100 WBC (Bld)24.0 %Normal.The [facility] Physician GroupComment on above:Performed By: #### TSH3 wRFLX, LIPID, [id number] #### [place] [address] USAMCH (RBC) [Entitic mass]27.3 pgLow27.5-35.2The [facility] Physician GroupComment on above:Performed By: #### TSH3 wRFLX, LIPID, [id number] #### [place] [address] USAMCV (RBC) [Entitic vol]83.8 cAKyhqvj29.5-101The [facility] Physician GroupComment on above:Performed By: #### TSH3 wRFLX, LIPID, [id number] #### [place] [address] USAMean Corpuscular HGB Conc32.6 g/vSLloamn02.5-35.6The [facility] Physician GroupComment on above:Performed By: #### TSH3 wRFLX, LIPID, [id number] #### [place] [address] USAMonocytes (Bld) [#/Vol]0.5 10*3/uLNormal0.0-0.8The [facility] Physician GroupComment on above:Performed By: #### TSH3 wRFLX, LIPID, [id number] #### [place] [address] USAMonocytes/100 WBC (Bld)10.7 %Normal.The [facility] Physician GroupComment on above:Performed By: #### TSH3 wRFLX, LIPID, [id number] #### [place] [address] USANeutrophils (Bld) [#/Vol]2.8 10*3/uLNormal1.8-7.7The [facility] Physician GroupComment on above:Performed By: #### TSH3 wRFLX, LIPID, [id number] #### [place] [address] USANeutrophils/100 WBC (Bld)56.5 %Normal.The [facility] Physician GroupComment on above:Performed By: #### TSH3 wRFLX, LIPID, [id number] #### [place] [address] USANRBC%0.2 /100{WBC}Normal0-0.5The [facility] Comment on above:Performed By: #### TSH3 wRFLX, LIPID, [id number] #### [facility] [address] [place] [address] USAPlatelet mean volume (Bld) [Entitic vol]7.8 fLNormal 6.6-10.1The [facility] Physician GroupComment on above:Performed By: #### TSH3 wRFLX, LIPID, [id number] #### [place] [address] USAPlatelets (Bld) [#/Vol]198 10*3/yYZbvkgz875-630Wxp [facility] Physician GroupComment on above:Performed By: #### TSH3 wRFLX, LIPID, [id number] #### [place] [address] USARBC (Bld) [#/Vol]3.55 10*6/uLLow3.90-5.60The [facility] Physician GroupComment on above:Performed By: #### TSH3 wRFLX, LIPID, [id number] #### [place] [address] USAWBC (Bld) [#/Vol]5.0 10*3/uLNormal4.1-10.5The [facility] Physician GroupComment on above:Performed By: #### TSH3 wRFLX, LIPID, [id number] #### [place] [address] USAWhite Blood Count5.0 [CFU]/mLNormal4.1-10.5The [facility] Physician GroupComment on above:Performed By: #### TSH3 wRFLX, LIPID, [id number] #### [place] [address] USAComprehensive Metabolic Panelon 57-24-6686Frsetit [Mass/Vol]3.0 g/dLLow3.5-5.7The [facility] Physician GroupComment on above: Performed By: #### TSH3 wRFLX, LIPID, [id number] #### [place] [address] USAAlbumin/Globulin [Mass ratio]0.8 {ratio}NormalThe [facility] Hospital Physician GroupComment on above:Performed By: #### TSH3 wRFLX, LIPID, [id number] #### [facility] [address] [place] [address] USAALP [Catalytic activity/Vol]178 U/YKgvg46-808Nip [facility] Physician GroupComment on above:Performed By: #### TSH3 wRFLX, LIPID, [id number] #### [place] [address] USAALT [Catalytic activity/Vol]11 U/LNormal7-52The [facility] Physician GroupComment on above:Performed By: #### TSH3 wRFLX, LIPID, [id number] #### [place] [address] USAAnion gap [Moles/Vol]10.8 mmol/LNormal6.0-15.0The [facility] Physician GroupComment on above:Performed By: #### TSH3 wRFLX, LIPID, [id number] #### [place] [address] USAAST [Catalytic activity/Vol]21 U/JUfmwze49-22Rtd [facility] Physician GroupComment on above:Performed By: #### TSH3 wRFLX, LIPID, [id number] #### [place] [address] USABilirubin [Mass/Vol]0.4 mg/dLNormal0.3-1.0The [facility] Physician GroupComment on above:Performed By: #### TSH3 wRFLX, LIPID, [id number] #### [place] [address] USACalcium [Mass/Vol]8.5 mg/dLLow8.6-10.3The [facility] Physician GroupComment on above:Performed By: #### TSH3 wRFLX, LIPID, [id number] #### [place] [address] USAChloride [Moles/Vol]104 mmol/ODwkfqx21-868Oyt [facility] Physician GroupComment on above:Performed By: #### TSH3 wRFLX, LIPID, [id number] #### [place] [address] USACO2 [Moles/Vol]26.5 mmol/UPfkdfp93.0-31.0The [facility] Physician GroupComment on above:Performed By: #### TSH3 wRFLX, LIPID, [id number] #### [facility] [address] [place] [address] USACreatinine [Mass/Vol]1.20 mg/dLNormal0.70-1.30The [facility] Physician GroupComment on above:Performed By: #### TSH3 wRFLX, LIPID, [id number] #### [facility] [address] [place] [address] USACreatinine Clr Calc Cqurfhtt68.21NoUNC Health Rex Physician GroupComment on above:Performed By: #### TSH3 wRFLX, LIPID, [id number] #### [place] [address] USAGFR/1.73 sq M.predicted MDRD (S/P/Bld) [Vol rate/Area] mL/min/{1.73_m2}NormalThe [facility] Physician GroupComment on above:Performed By: #### TSH3 wRFLX, LIPID, [id number] #### [place] [address] USAGlobulin (S) [Mass/Vol]3.9 g/dLNoUNC Health Rex Physician GroupComment on above:Performed By: #### TSH3 wRFLX, LIPID, [id number] #### [place] [address] USAGlucose [Mass/Vol]245 mg/vMMolr27-015Luy [facility] Physician GroupComment on above:Result Comment: Random Glucose Reference Range is dependent on time and content of last meal. Glucose of more than 200 mg/dL in a nonstressed, ambulatory subject supports the diagnosis of Diabetes Mellitus. ADA recommended reference rangePerformed By: #### TSH3 wRFLX, LIPID, [id number] #### [place] [address] USAPotassium [Moles/Vol]4.3 mmol/LNormal3.5-5.1The [facility] Physician GroupComment on above:Performed By: #### TSH3 wRFLX, LIPID, [id number] #### [place] [address] USAProtein [Mass/Vol]6.9 g/dLNormal6.4-8.9The [facility] Physician GroupComment on above:Performed By: #### TSH3 wRFLX, LIPID, [id number] #### [place] [address] USASodium [Moles/Vol]137 mmol/LGguprp630-000Szl [facility] Physician GroupComment on above:Performed By: #### TSH3 wRFLX, LIPID, [id number] #### [place] [address] USAUrea nitrogen [Mass/Vol]21 mg/dLNormal7-25The [facility] Physician GroupComment on above:Performed By: #### TSH3 wRFLX, LIPID, [id number] #### [place] [address] USAFerritinon 27-63-5285Xctfqvlz [Mass/Vol]7.6 ng/mLLow 23.9-336.2The [facility] Physician GroupComment on above:Performed By: #### TSH3 wRFLX, LIPID, [id number] #### [place] [address] USAGlucose Poct Glucometerson 47-72-5782Zbdufrk [Mass/Vol]247 mg/dLNormBroward Health Imperial Point Physician GroupComment on above:Result Comment: Random Glucose Reference Range is dependent on time and content of last meal. Glucose of more than 200 mg/dL in a nonstressed, ambulatory subject supports the diagnosis of Diabetes Mellitus. PERFORMED BY: [place] [address] PATHOLOGIST ADMISSIONS DIRECTOR HILDA LEE M.D.Performed By: #### PT, PLT #### [place] [address] USAGlucose [Mass/Vol]296 mg/dLNormBroward Health Imperial Point Physician GroupComment on above:Result Comment: Random Glucose Reference Range is dependent on time and content of last meal. Glucose of more than 200 mg/dL in a nonstressed, ambulatory subject supports the diagnosis of Diabetes Mellitus. PERFORMED BY: [place] [address] PATHOLOGIST ADMISSIONS DIRECTOR HILDA LEE M.D.Performed By: #### TSH3 wRFLX, LIPID, [id number] #### [place] [address] USAGlucose [Mass/Vol]348 mg/dLNoUNC Health Rex Physician GroupComment on above:Result Comment: Random Glucose Reference Range is dependent on time and content of last meal. Glucose of more than 200 mg/dL in a nonstressed, ambulatory subject supports the diagnosis of Diabetes Mellitus. PERFORMED BY: [place] [address] PATHOLOGIST ADMISSIONS DIRECTOR HILDA LEE M.D.Performed By: #### PT, PLT #### [place] [address] IARYylguuq5Czl3: Cleaned MeterNoUNC Health Rex Physician GroupComment on above:Result Comment: PERFORMED BY: [place] [address] PATHOLOGIST ADMISSIONS DIRECTOR HILDA LEE M.D.Performed By: #### PT, PLT #### [place] [address] USAGlucose [Mass/Vol]246 mg/dLNCH Healthcare System - North Naples Physician GroupComment on above:Result Comment: Random Glucose Reference Range is dependent on time and content of last meal. Glucose of more than 200 mg/dL in a nonstressed, ambulatory subject supports the diagnosis of Diabetes Mellitus.Performed By: #### PT, PLT #### [place] [id number] USAIron and TIBC Profileon 05-22-2025% Iron Saturation4.7 % Ykm51-27Pcw [facility] Physician GroupComment on above:Performed By: #### TSH3 wRFLX, LIPID, [id number] #### [facility] [address] [place] [address] USAIron [Mass/Vol]18 ug/aTMgh63-618Eoz [facility] Physician GroupComment on above:Performed By: #### TSH3 wRFLX, LIPID, [id number] #### [facility] [address] [place] [address] USATotal Iron Binding Bgpjywti734 ug/vNKdsmco163-380Vei [facility] Physician GroupComment on above:Performed By: #### TSH3 wRFLX, LIPID, [id number] #### [place] [address] USATransferrin [Mass/Vol]271 mg/mXNghigg254-628Tpe [facility] Physician GroupComment on above:Performed By: #### TSH3 wRFLX, LIPID, [id number] #### [place] [address] USAMagnesiumon 10-91-9812Kpzfhjhcz [Mass/Vol]1.4 mg/dLLow 1.9-2.7The [facility] Physician GroupComment on above:Performed By: #### TSH3 wRFLX, LIPID, [id number] #### [facility] [address] [place] [address] USAVit. B12/Folate Profileon 64-60-2151Xpmxlqgjg (Vitamin B12) [Mass/Vol]247 pg/pLJpfwrf436-416Tea [facility] Physician GroupComment on above:Performed By: #### TSH3 wRFLX, LIPID, [id number] #### [facility] [address] [place] [address] KWKBylbwz10.4 ng/mLNormal>5.9The [facility] Comment on above:Result Comment: Folate reference range: >5.9 ng/ml The WHO technical consultation on folate and vitamin b12 deficiencies has determined that folate concentrations less than 4 ng/ml are considered deficient. PERFORMED BY: [place] [address] PATHOLOGIST ADMISSIONS DIRECTOR HILDA LEE M.D.Performed By: #### TSH3 wRFLX, LIPID, [id number] #### [address] [address] USAGlucose Poct Glucometerson 75-12-7375Mscpyit3Mhp1: Cleaned MeterNoUNC Health Rex Physician GroupComment on above:Result Comment: PERFORMED BY: [place] [address] PATHOLOGIST ADMISSIONS DIRECTOR HILDA LEE M.D.Performed By: #### PT, PLT #### [place] [id number] USAGlucose [Mass/Vol]352 mg/dLNoUNC Health Rex Physician GroupComment on above:Result Comment: Random Glucose Reference Range is dependent on time and content of last meal. Glucose of more than 200 mg/dL in a nonstressed, ambulatory subject supports the diagnosis of Diabetes Mellitus.Performed By: #### PT, PLT #### [place] [address] USAGlucose [Mass/Vol]266 mg/dLNoUNC Health Rex Physician GroupComment on above:Result Comment: Random Glucose Reference Range is dependent on time and content of last meal. Glucose of more than 200 mg/dL in a nonstressed, ambulatory subject supports the diagnosis of Diabetes Mellitus. PERFORMED BY: [place] [address] PATHOLOGIST ADMISSIONS DIRECTOR HILDA LEE M.D.Performed By: #### TSH3 wRFLX, LIPID, [id number] #### [place] [id number] USAGlucose [Mass/Vol]167 mg/dLNCH Healthcare System - North Naples Physician GroupComment on above:Result Comment: Random Glucose Reference Range is dependent on time and content of last meal. Glucose of more than 200 mg/dL in a nonstressed, ambulatory subject supports the diagnosis of Diabetes Mellitus. PERFORMED BY: [address] [address] PATHOLOGIST ADMISSIONS DIRECTOR HILDA LEE M.D.Performed By: #### TSH3 wRFLX, LIPID, [id number] #### [facility] [address] [place] [address] USAGlucose Poct Glucometerson 79-44-4403Ydgkjzv [Mass/Vol]202 mg/dLNoUNC Health Rex Physician GroupComment on above:Result Comment: Random Glucose Reference Range is dependent on time and content of last meal. Glucose of more than 200 mg/dL in a nonstressed, ambulatory subject supports the diagnosis of Diabetes Mellitus. PERFORMED BY: [place] [address] PATHOLOGIST ADMISSIONS DIRECTOR HILDA LEE M.D.Performed By: #### TSH3 wRFLX, LIPID, [id number] #### [place] [address] USAGlucose [Mass/Vol]196 mg/dLNoUNC Health Rex Physician GroupComment on above:Result Comment: Random Glucose Reference Range is dependent on time and content of last meal. Glucose of more than 200 mg/dL in a nonstressed, ambulatory subject supports the diagnosis of Diabetes Mellitus. PERFORMED BY: [place] [address] PATHOLOGIST ADMISSIONS DIRECTOR HILDA LEE M.D.Performed By: #### PT, PLT #### [address] [address] USAGlucose Poct Glucometerson 71-74-4200Mewypbl [Mass/Vol]310 mg/dLNoUNC Health Rex Physician GroupComment on above:Result Comment: Random Glucose Reference Range is dependent on time and content of last meal. Glucose of more than 200 mg/dL in a nonstressed, ambulatory subject supports the diagnosis of Diabetes Mellitus. PERFORMED BY: [place] [address] PATHOLOGIST ADMISSIONS DIRECTOR HILDA LEE M.D.Performed By: #### TSH3 wRFLX, LIPID, [id number] #### [address] [address] USAGlucose [Mass/Vol]175 mg/dLNormBroward Health Imperial Point Physician GroupComment on above:Result Comment: Random Glucose Reference Range is dependent on time and content of last meal. Glucose of more than 200 mg/dL in a nonstressed, ambulatory subject supports the diagnosis of Diabetes Mellitus. PERFORMED BY: [place] [address] PATHOLOGIST ADMISSIONS DIRECTOR HILDA LEE M.D.Performed By: #### PT, PLT #### [facility] [address] [place] [address] USAGlucose Poct Glucometerson 19-00-4423Phuzniz [Mass/Vol]234 mg/dLNormBroward Health Imperial Point Physician GroupComment on above:Result Comment: Random Glucose Reference Range is dependent on time and content of last meal. Glucose of more than 200 mg/dL in a nonstressed, ambulatory subject supports the diagnosis of Diabetes Mellitus. PERFORMED BY: [place] [address] PATHOLOGIST ADMISSIONS DIRECTOR HILDA LEE M.D.Performed By: #### TSH3 wRFLX, LIPID, [id number] #### [place] [address] USAGlucose [Mass/Vol]148 mg/dLNoUNC Health Rex Physician GroupComment on above:Result Comment: Random Glucose Reference Range is dependent on time and content of last meal. Glucose of more than 200 mg/dL in a nonstressed, ambulatory subject supports the diagnosis of Diabetes Mellitus. PERFORMED BY: [place] [address] PATHOLOGIST ADMISSIONS DIRECTOR HILDA LEE M.D.Performed By: #### PT, PLT #### [place] [id number] USAECG 12 lead ECGon 36-07-1480HEU 12 lead [facility] Main [place] [id number] Electrocardiograph Report Signed Patient: Evelin Patterson MR#: [id number] 005 : 1955 Acct:[id number] Age/Sex: 69 / M ADM Date: 05/16/25 Loc: Room: [address] [place] [address] Type: ADM IN Attending Dr: Juan A Garza MD Ordering Provider: Juan A Garza MD Date of Service: 05/17/2503/04/500 ECG/ECG 12 lead ECG: New Admit Copies to: Test Reason : Blood Pressure : */* mmHG Vent. Rate : 96 BPM Atrial Rate : * BPM P-R Int : * ms QRS Dur : 84 ms QT Int : 376 ms P-R-T Axes : * 61 69 degrees QTcB Int : 475 ms Atrial fibrillation Abnormal ECG When compared with ECG of 16-May-2025 09:03, Atrial fibrillation has replaced Sinus rhythm Confirmed by SHAWN IRELAND MD ([id number]) on 05/17/2025 11:12:23 AM Referred By: Electronically Signed By: SHAWN IRELAND MD Transcribed By: MUS Signed By Shawn Ireland MD 1 1112Owatonna HospitalGlucose Poct Glucometerson 76-22-3350Zqlhkiu8Hys9: Cleaned MeterOwatonna HospitalComment on above:Result Comment: PERFORMED BY: [place] [address] PATHOLOGIST ADMISSIONS DIRECTOR HILDA LEE M.D.Performed By: #### PT, PLT #### [place] [address] USAGlucose [Mass/Vol]186 mg/dLNCH Healthcare System - North Naples Physician [facility] Specialty HospitalComment on above:Result Comment: Random Glucose Reference Range is dependent on time and content of last meal. Glucose of more than 200 mg/dL in a nonstressed, ambulatory subject supports the diagnosis of Diabetes Mellitus.Performed By: #### PT, PLT #### [place] [address] USAGlucose [Mass/Vol]180 mg/dLNCH Healthcare System - North [place] Physician [facility]ty HospitalComment on above:Result Comment: Random Glucose Reference Range is dependent on time and content of last meal. Glucose of more than 200 mg/dL in a nonstressed, ambulatory subject supports the diagnosis of Diabetes Mellitus. PERFORMED BY: [place] [address] PATHOLOGIST ADMISSIONS DIRECTOR HILDA LEE M.D.Performed By: #### PT, PLT #### [facility] [address] [place] [address] USAAlanine aminotransferase [Enzymatic activity/volume] in Serum or PlasmaOrdered By: Carmine Gutirerez on 42-11-2668MYJ [Catalytic activity/Vol]13 U/LNormal7-52Parkwood HospitalComment on above: Performed By: #### GLULS #### Point of Care testing ,Albumin [Mass/volume] in Serum or Plasma by Bromocresol green (BCG) dye binding methoOrdered By: Carmine Gutierrez on 93-94-2211Gdxjjld BCG dye [Mass/Vol]3.3 g/dL Low3.5-5.7FOhioHealth Doctors HospitalAlkaline phosphatase [Enzymatic activity/volume] in Serum or PlasmaOrdered By: Carmine Gutierrez on 09-36-3512VRD [Catalytic activity/Vol]149 U/DIifr76-045AoyhpsfjsParkwood Hospital Comment on above:Performed By: #### GLULS #### Point of Care testing ,Amphetamine Screen Ql (U)Ordered By: Carmine Gutierrez on 66-66-0512Mcrjvnmhebgp Ql (U)NegativeNegativeParkwood HospitalAppearance of UrineOrdered By: Carmine Gutierrez on 88-36-2898Llinsptwlc (U)ClearNormalClearParkwood HospitalComment on above:Order Comment: PER JACQUARD LOOM FIXER AGUILA PT ADMITTED FROM ER. USE ER BLOOD-[id number] By: #### TSH3 wRFLX, LIPID, [id number] #### [facility] [address] [place], [place] [id number] USAAspartate aminotransferase [Enzymatic activity/volume] in Serum or PlasmaOrdered By: Carmine Gutierrez on 40-15-6184OVA [Catalytic activity/Vol]25 U/HPlgemu96-66ZbiqwuswkParkwood HospitalComment on above: Performed By: #### GLULS #### Point of Care testing ,Bacteria [Presence] in Urine by AutomatedOrdered By: Carmine Gutierrez on 05-16-2025 Bacteria Auto Ql (U)Rare [HPF]None SeenParkwood Hospital Barbiturates [Presence] in Urine by Screen methodOrdered By: Carmine Gutierrez on 71-46-8638Lvywhpgwtxdv Screen Ql (U)NegativeNegAultman HospitalBasophils [#/volume] in Blood by Automated countOrdered By: Carmine Gutierrez on 68-82-1723Nijsfcudd (Bld) [#/Vol]0.1 10*3/uLNormal0.0-0.2FOhioHealth Doctors HospitalComment on above:Result Comment: PERFORMED BY: [address] [place] [address] PATHOLOGIST ADMISSIONS DIRECTOR HILDA LEE M.D.Performed By: #### GLULS #### Point of Care testing ,Basophils/100 leukocytes in Blood by Automated countOrdered By: Carmine Gutierrez on 69-98-2738Uzquwjvda/100 WBC (Bld)1.4 %Normal.[facility] Comment on above:Performed By: #### GLULS #### Point of Care testing ,Benzodiazepines Screen Ql (U)Ordered By: Carmine Gutierrez on 05-16-2025 Benzodiazepines Ql (U)NegativeNegAultman Hospital Benzoylecgonine [Presence] in Urine by Screen methodOrdered By: Carmine Gutierrez on 91-88-4792Zyfyxrtbiwfnpfy Screen Ql (U)NegativeNegAultman HospitalBilirubin Test strip Ql (U)Ordered By: Carmine Gutierrez on 05-16-2025 Bilirubin Ql (U)NegativeNegAultman HospitalBilirubin.total [Mass/volume] in Serum or PlasmaOrdered By: Carmine Gutierrez on 63-65-3508Joitqfylo [Mass/Vol]0.5 mg/dLNormal0.3-1.0Parkwood HospitalComment on above:Performed By: #### GLULS #### Point of Care testing ,Calcium [Mass/volume] in Serum or PlasmaOrdered By: Carmine Gutierrez on 05-16-2025 Calcium [Mass/Vol]8.4 mg/dLLow8.6-10.3FOhioHealth Doctors HospitalComment on above:Performed By: #### GLULS #### Point of Care testing ,Cannabinoids [Presence] in Urine by Screen methodOrdered By: Carmine Gutierrez on 68-14-6210Xunfrowoqkbp Screen Ql (U)NegativeNegativeParkwood HospitalComment on above:These are unconfirmed results and should not be used for legal purposes. Drug Cut-Off Concentration: AMPH 1000 ng/mL FRANK 200 ng/mL SAFIA 200 ng/mL COCM 300 ng/mL OP 300 ng/mL PCP 25 ng/mL THC 20 ng/mLCarbon dioxide, total [Moles/volume] in Serum or PlasmaOrdered By: Carmine Gutierrez on 52-52-2481UQ0 [Moles/Vol]25.4 mmol/ZEaoqbw89.0-31.0Parkwood HospitalComment on above:Performed By: #### GLULS #### Point of Care testing ,Chloride [Moles/volume] in Serum or PlasmaOrdered By: Carmine Gutierrez on 48-61-6184Kpoqaqvm [Moles/Vol]105 mmol/JQdvfqq49-054GbpyaydhoParkwood HospitalComment on above:Performed By: #### GLULS #### Point of Care testing ,Color of Urine by AutoOrdered By: Carmine Gutierrez on 96-47-3935Wfcmd (U)Yellow NormalYellowParkwood HospitalComment on above:Order Comment: PER JACQUARD LOOM FIXER AGUILA PT ADMITTED FROM ER. USE ER BLOOD-[id number] By: #### TSH3 wRFLX, LIPID, [id number] #### [facility] [address] [place] [address] USAComplete Blood Count Auto Diffon 43-43-2341Dhia Corpuscular HGB Conc32.3 g/dLLow32.5-35.6The [facility] Physician GroupComment on above:Performed By: #### GLULS #### Point of Care testing ,Monocytes/100 WBC (Bld)20.40 %High0.00-20.00The [facility] Comment on above:Result Comment: For adults in ED, MDW > 20.0 may be associated with a higher risk of sepsis during the first 12 hrs of hospital admissionPerformed By: #### GLULS #### Point of Care testing ,NRBC%0.0 /100{WBC}Normal0-0.5The [facility] Hospital Physician GroupComment on above: Performed By: #### GLULS #### Point of Care testing ,White Blood Count5.7 [CFU]/mLNormal4.1-10.5The [facility] Hospital Physician GroupComment on above:Performed By: #### GLULS #### Point of Care testing ,Comprehensive Metabolic Panelon 51-95-6035Egbfybt [Mass/Vol]3.3 g/dLLow3.5-5.7 The [facility] Hospital Physician GroupComment on above:Performed By: #### GLULS #### Point of Care testing ,Creatinine Clr Calc Cpgmozyu85.78NormalThe [facility] Hospital Physician GroupComment on above:Performed By: #### GLULS #### Point of Care testing ,GFR/1.73 sq M.predicted MDRD (S/P/Bld) [Vol rate/Area]51.534 mL/min/{1.73_m2} NormalThe [facility]'S Hospital Physician GroupComment on above:Performed By: #### GLULS #### Point of Care testing ,Creatinine [Mass/volume] in Serum or PlasmaOrdered By: Carmine Gutierrez on 05-02-5270Vgkjphzwpa [Mass/Vol]1.48 mg/dLHigh0.70-1.30Parkwood HospitalComment on above:Performed By: #### GLULS #### Point of Care testing ,Dipstick and Microscopicon 76-47-0837Kwtiqsjg,UrineRareNormalNone SeenThe [facility] Women'S Hospital Physician GroupComment on above:Order Comment: PER JACQUARD LOOM FIXER AGUILA PT ADMITTED FROM ER. USE ER BLOOD-[id number] By: #### TSH3 wRFLX, LIPID, [id number] #### [facility] [address] [place] [address] USABilirubin,UrineNegativeNormalNegativeThe [facility] Hospital Physician GroupComment on above:Order Comment: PER JACQUARD LOOM FIXER AGUILA PT ADMITTED FROM ER. USE ER BLOOD-[id number] By: #### TSH3 wRFLX, LIPID, [id number] #### [place] [address] USAGlucose Ql (U)200 mg/dLNormalNormBroward Health Imperial Point Physician GroupComment on above:Order Comment: PER JACQUARD LOOM FIXER AGUILA PT ADMITTED FROM ER. USE ER BLOOD-[id number] By: #### TSH3 wRFLX, LIPID, [id number] #### [place] [address] USAGranular Casts, Urine5-9NormalNone SeenHolmes Regional Medical Center Physician GroupComment on above:Order Comment: PER JACQUARD LOOM FIXER AGUILA PT ADMITTED FROM ER. USE ER BLOOD-[id number] By: #### TSH3 wRFLX, LIPID, [id number] #### [place] [address] USAHyaline Casts,Bcjpk2-6Uzmfvj1-0Gve [facility] Physician GroupComment on above:Order Comment: PER JACQUARD LOOM FIXER AGUILA PT ADMITTED FROM ER. USE ER BLOOD-[id number] By: #### TSH3 wRFLX, LIPID, [id number] #### [place] [address] USAMucus,UrineRareNormalHolmes Regional Medical Center Physician GroupComment on above:Order Comment: PER JACQUARD LOOM FIXER AGUILA PT ADMITTED FROM ER. USE ER BLOOD-[id number] Comment: PERFORMED BY: [place] [address] PATHOLOGIST ADMISSIONS DIRECTOR HILDA LEE M.D.Performed By: #### TSH3 wRFLX, LIPID, [id number] #### [place] [address] USANitrite,UrineNegativeNormalNegativeThe [facility] Physician GroupComment on above:Order Comment: PER JACQUARD LOOM FIXER AGUILA PT ADMITTED FROM ER. USE ER BLOOD-[id number] By: #### TSH3 wRFLX, LIPID, [id number] #### [place] [address] USAOccult Blood,Urine1+NormalNegativeThe [facility] Hospital Physician GroupComment on above:Order Comment: PER JACQUARD LOOM FIXER AGUILA PT ADMITTED FROM ER. USE ER BLOOD-[id number] Comment: PERFORMED BY: [place] [address] PATHOLOGIST ADMISSIONS DIRECTOR HILDA LEE M.D.Performed By: #### TSH3 wRFLX, LIPID, [id number] #### [place] [address] USARBC,Sgtuo0-3Bgkvyz2-3Mhm [facility] Physician GroupComment on above:Order Comment: PER JACQUARD LOOM FIXER AGUILA PT ADMITTED FROM ER. USE ER BLOOD-[id number] By: #### TSH3 wRFLX, LIPID, [id number] #### [place] [address] USASpecificy [place],Urine1.042Efasgj5.001-1.030The [facility] Hospital Physician GroupComment on above:Order Comment: PER JACQUARD LOOM FIXER AGUILA PT ADMITTED FROM ER. USE ER BLOOD-[id number] By: #### TSH3 wRFLX, LIPID, [id number] #### [place] [address] USASquamous Epithelial Cell,Thwij5-7Iwxoxd9-1Wgw [facility] Physician GroupComment on above:Order Comment: PER JACQUARD LOOM FIXER AGUILA PT ADMITTED FROM ER. USE ER BLOOD-[id number] By: #### TSH3 wRFLX, LIPID, [id number] #### [place] [address] USAUrobilinogen,Urine2 mg/dLNormalNormalThe [facility] Physician GroupComment on above:Order Comment: PER JACQUARD LOOM FIXER AGUILA PT ADMITTED FROM ER. USE ER BLOOD-[id number] By: #### TSH3 wRFLX, LIPID, [id number] #### [place] [address] USAWBC,Kdltf8-7Fvrepz8-3Uqd [facility] Physician GroupComment on above:Order Comment: PER JACQUARD LOOM FIXER AGUILA PT ADMITTED FROM ER. USE ER BLOOD-[id number] By: #### TSH3 wRFLX, LIPID, [id number] #### [place] [address] USADrug Screen,Urineon 17-91-0648Hvnlzsavrly Screen,Urine NegativeNormalNegativeHolmes Regional Medical Center Physician [facility]ty HospitalComment on above:Performed By: #### GLULS #### Point of Care testing ,Barbiturate Screen,UrineNegativeNormalNegativeHolmes Regional Medical Center Physician Group Comment on above:Performed By: #### GLULS #### Point of Care testing ,Benzodiazepines Screen,UrineNegativeNormalNegativeHolmes Regional Medical Center Physician Group Comment on above:Performed By: #### GLULS #### Point of Care testing ,Cannabinoid Screen,UrineNegativeNormalNegativeHolmes Regional Medical Center Physician Group Comment on above:Result Comment: These are unconfirmed results and should not be used for legal purposes. Drug Cut-Off Concentration: AMPH 1000 ng/mL FRANK 200 ng/mL SAFIA 200 ng/mL COCM 300 ng/mL OP 300 ng/mL PCP 25 ng/mL THC 20 ng/mL PERFORMED BY: [place] [address] PATHOLOGIST ADMISSIONS DIRECTOR HILDA LEE M.D.Performed By: #### GLULS #### Point of Care testing ,Cocaine Screen,UrineNegativeNormalNegativeHolmes Regional Medical Center Physician [facility] Specialty HospitalComment on above:Performed By: #### GLULS #### Point of Care testing ,Opiate Screen,UrineNegativeNormalNegativeHolmes Regional Medical Center Physician GroupComment on above:Performed By: #### GLULS #### Point of Care testing ,Phencyclidine Screen,UrineNegativeNormalNegativeHolmes Regional Medical Center Physician Group Comment on above:Performed By: #### GLULS #### Point of Care testing ,Eosinophils [#/volume] in Blood by Automated countOrdered By: Carmine Gutierrez on 56-63-7457Qgaomypykfr (Bld) [#/Vol]0.4 10*3/uLNormal0.0-0.45Parkwood HospitalComment on above:Performed By: #### GLULS #### Point of Care testing ,Eosinophils/100 leukocytes in Blood by Automated countOrdered By: Carmine Gutierrez on 00-57-6556Qlozssmhbxr/100 WBC (Bld)7.8 %Normal.Parkwood HospitalComment on above:Performed By: #### GLULS #### Point of Care testing ,Epithelial cells.squamous [#/area] in Urine sediment by Automated countOrdered By: Carmine Gutierrez on 66-89-8032Layrbcfaur cells.squamous Auto (Urine sed) [#/Area]1-2 [HPF]0-2FOhioHealth Doctors HospitalErythrocyte distribution width [Ratio] by Automated countOrdered By: Carmine Gutierrez on 05-16-2025 Erythrocyte distribution width (RBC) [Ratio]18.0 %High12.0-14.8Parkwood HospitalComment on above:Performed By: #### GLULS #### Point of Care testing ,Erythrocytes [#/area] in Urine sediment by Automated countOrdered By: Carmine Gutierrez on 37-13-4774EPQ Auto (Urine sed) [#/Area]5-9 [HPF]High0-4FOhioHealth Doctors HospitalErythrocytes [#/volume] in Blood by Automated count Ordered By: Carmine Gutierrez on 82-41-8866OBT (Bld) [#/Vol]3.66 10*6/uLLow3.90-5.60 Parkwood HospitalComment on above:Performed By: #### GLULS #### Point of Care testing ,Ethanol [Mass/volume] in Serum or PlasmaOrdered By: Carmine Gutierrez on 05-16-2025 Ethanol [Mass/Vol]mg/dLNormalParkwood HospitalComment on above: Performed By: #### GLULS #### Point of Care testing ,Ethyl Alcohol Profileon 29-05-1375Mzdumpo EthanolNot performedNoUNC Health Rex Physician GroupComment on above:Result Comment: PERFORMED BY: [facility] [place] [address] PATHOLOGIST ADMISSIONS DIRECTOR HILDA LEE M.D.Performed By: #### GLULS #### Point of Care testing ,Glomerular filtration rate [Volume Rate/Area] in Serum, Plasma or Blood by CreatinineOrdered By: Carmine Gutierrez on 41-26-4500Zgmjmyswcy filtration rate [Volume Rate/Area] in Serum, Plasma or Blood by Dmtrgsltac25.534 mL/MinParkwood HospitalGlucose Poct Glucometerson 10-55-9824Qenytwy [Mass/Vol] 219 mg/dLNCH Healthcare System - North Naples Physician GroupComment on above:Result Comment: Random Glucose Reference Range is dependent on time and content of last meal. Glucose of more than 200 mg/dL in a nonstressed, ambulatory subject supports the diagnosis of Diabetes Mellitus. PERFORMED BY: [address] [place] [address] PATHOLOGIST ADMISSIONS DIRECTOR HILDA LEE M.D.Performed By: #### GLULS #### Point of Care testing ,Glucose [Mass/volume] in Serum or PlasmaOrdered By: Carmien Gutierrez on 05-16-2025 Glucose [Mass/Vol]161 mg/gHExel92-145JfcjenildParkwood HospitalComment on above:ADA recommended reference rangeRandom Glucose Reference Range is dependent on time and content of last meal. Glucose of more than 200 mg/dL in a nonstressed, ambulatory subject supports the diagnosisof Diabetes Mellitus. Result Comment: Random Glucose Reference Range is dependent on time and content of last meal. Glucose of more than 200 mg/dL in a nonstressed, ambulatory subject supports the diagnosis of Diabetes Mellitus. ADA recommended reference rangePerformed By: #### GLULS #### Point of Care testing ,Glucose [Mass/volume] in Urine by Test stripOrdered By: Carmine Gutierrez on 29-54-2741Jdvviof Test strip (U) [Mass/Vol]200 mg/dLMartin Memorial HospitalGranular casts [#/area] in Urine by Computer assisted method Ordered By: Carmine Gutierrez on 52-72-0518Uhrhqxgp casts Computer assisted (U) [#/Area]5-9 [LPF][facility] Tiffin HospitalHematocrit [Volume Fraction] of Blood by Automated countOrdered By: Carmine Gutierrez on 38-34-6233Hhtnodivvj (Bld) [Volume fraction]30.8 %Low38.8-50.0Parkwood HospitalComment on above:Performed By: #### GLULS #### Point of Care testing ,Hemoglobin Test strip Ql (U)Ordered By: Carmine Gutierrez on 54-01-2051Dlgppevmpo Ql (U)1+HighNegativeParkwood HospitalHemoglobin [Mass/volume] in BloodOrdered By: Carmine Gutierrez on 68-29-3828Vgefivjtdb (Bld) [Mass/Vol]9.9 g/dL Low13.0-17.0Parkwood HospitalComment on above:Performed By: #### GLULS #### Point of Care testing ,Hyaline casts [#/area] in Urine sediment by Automated countOrdered By: Carmine Gutierrez on 33-64-8212Dzmcszp casts Auto (Urine sed) [#/Area]0-8 [LPF]0-8Parkwood HospitalKetones [Presence] in Urine by Test stripOrdered By: Carmine Gutierrez on 59-01-5172Qszhgpp Ql (U)NegativeNormalNegAultman HospitalComment on above:Order Comment: PER JACQUARD LOOM FIXER AGUILA PT ADMITTED FROM ER. USE ER BLOOD-[id number] By: #### TSH3 wRFLX, LIPID, [id number] #### [facility] [address] [place] [id number] USALeukocyte esterase [Presence] in Urine by Test strip Ordered By: Carmine Gutierrez on 32-63-3600Jbkjvnpft esterase Test strip Ql (U) NegativeNormalNegAultman HospitalComment on above:Order Comment: PER JACQUARD LOOM FIXER AGUILA PT ADMITTED FROM ER. USE ER BLOOD-[id number] By: #### TSH3 wRFLX, LIPID, [id number] #### [facility] [address] [place] [id number] USALeukocytes [#/area] in Urine sediment by Automated count Ordered By: Carmine Gutierrez on 41-81-4972AEM Auto (Urine sed) [#/Area]1-2 [HPF]0-4 Parkwood HospitalLeukocytes [#/volume] corrected for nucleated erythrocytes in Blood by Automated counOrdered By: Carmine Gutierrez on 82-65-7413UOS corrected for nucl RBC Auto (Bld) [#/Vol]5.7 10*3/uL4.1-10.5FOhioHealth Doctors HospitalLeukocytes [#/volume] in Blood by Automated countOrdered By: Carmine Gutierrez on 90-40-4427SZD (Bld) [#/Vol]5.7 10*3/uLNormal4.1-10.5FOhioHealth Doctors HospitalComment on above:Performed By: #### GLULS #### Point of Care testing ,Lipid Panelon 64-00-1008Zgjuvtqhppr [Mass/Vol]158 mg/yMIsctbl260-793Ynl [facility] Physician GroupComment on above:Order Comment: PER JACQUARD LOOM FIXER AGUILA PT ADMITTED FROM ER. USE ER BLOOD-[id number] Comment: Chol less than 200 mg/dl low risk Chol 201-239 mg/dl borderline risk Chol 240 mg/dl and greater high riskPerformed By: #### TSH3 wRFLX, LIPID, [id number] #### [facility] [address] [place] [address] USACholesterol in HDL [Mass/Vol]32 mg/oXYhxwzp43-79Lzn [facility] Physician GroupComment on above:Order Comment: PER JACQUARD LOOM FIXER AGUILA PT ADMITTED FROM ER. USE ER BLOOD-[id number] Comment: HDL CHOL ATP-III CLASSIFICATION Cardiovascular Risk HDL > or equal to 60 mg/dL LOW HDL < 40 mg/dL HIGHPerformed By: #### TSH3 wRFLX, LIPID, [id number] #### [facility] [address] [place] [address] USACholesterol.total/Cholesterol in HDL [Mass ratio]4.9 {ratio}Normal<5.0The [facility] Hospital Physician GroupComment on above:Order Comment: PER JACQUARD LOOM FIXER AGUILA PT ADMITTED FROM ER. USE ER BLOOD-[id number] By: #### TSH3 wRFLX, LIPID, [id number] #### [facility] [address] [place] [address] USALDL Cholesterol,Qiehjwmicb56 mg/dLNormal0-100The [facility] Physician [facility] HospitalComment on above:Order Comment: PER JACQUARD LOOM FIXER AGUILA PT ADMITTED FROM ER. USE ER BLOOD-[id number] Comment: LDL ATP III CLASSIFICATION LDL less than 100 mg/dL Optimal LDL 100-129 mg/dL Near or above optimal LDL 130-159 mg/dL Borderline high LDL 160-189 mg/dL High LDL greater than 189 mg/dL Very highPerformed By: #### TSH3 wRFLX, LIPID, [id number] #### [facility] [address] [place] [address] USATriglyceride w/Fchkii862 mg/dLHigh0-149The [facility] Hospital Physician GroupComment on above:Order Comment: PER JACQUARD LOOM FIXER AGUILA PT ADMITTED FROM ER. USE ER BLOOD-[id number] Comment: TRIG ATP III CLASSIFICATION TRIG less than 150 mg/dL Normal TRIG 150-199 mg/dL Borderline high TRIG 200-500 mg/dL High TRIG greater than 500 mg/dL Very high Standard traceable to the Center for Disease Conrtrol and Prevention (CDC) test method.Performed By: #### TSH3 wRFLX, LIPID, [id number] #### [place] [id number] USAVLDL WLDKHFCZDGY37 mg/dLNormalThe [facility] Physician [facility] HospitalComment on above:Order Comment: PER JACQUARD LOOM FIXER AGUILA PT ADMITTED FROM ER. USE ER BLOOD-[id number] By: #### TSH3 wRFLX, LIPID, [id number] #### [place] [id number] USALymphocytes [#/volume] in Blood by Automated countOrdered By: Carmine Gutierrez on 32-46-9396Gvllroywife (Bld) [#/Vol]1.5 10*3/uLNormal1.00-4.8 [facility] HospitalComment on above:Performed By: #### GLULS #### Point of Care testing ,Lymphocytes/100 leukocytes in Blood by Automated countOrdered By: Carmine Gutierrez on 04-52-3832Czbmxzyhbjn/100 WBC (Bld)26.7 %Normal.[facility] Medical CenterComment on above:Performed By: #### GLULS #### Point of Care testing ,MCH [Entitic mass] by Automated countOrdered By: Carmine Gutierrez on 77-86-3278UUA (RBC) [Entitic mass]27.2 pgLow27.5-35.2FOhioHealth Doctors HospitalComment on above:Performed By: #### GLULS #### Point of Care testing ,MCHC Auto (RBC) [Mass/Vol]Ordered By: Carmine Gutierrez on 25-12-5644CQGT (RBC) [Mass/Vol]32.3 g/dLLow32.5-35.6FOhioHealth Doctors HospitalMCV [Entitic volume] by Automated countOrdered By: Carmine Gutierrez on 52-38-6147QQQ (RBC) [Entitic vol]84.1 fUStdbvb41.5-101Park[facility] HospitalComment on above:Performed By: #### GLULS #### Point of Care testing ,Monocyte distribution width [Entitic volume] in Blood by AutomatedOrdered By: Carmine Gutierrez on 94-88-2500Wrotuane distribution width Auto (Bld) [Entitic vol] 20.40 %High0.00-20.00Parkwood HospitalComment on above:For adults in ED, MDW > 20.0 may be associated with a higher risk of sepsis during the first 12 hrs of hospital admissionMonocytes [#/volume] in Blood by Automated countOrdered By: Carmine Gutierrez on 75-59-2485Cqeidrgkp (Bld) [#/Vol]0.6 10*3/uL Normal0.0-0.8[facility]wood HospitalComment on above:Performed By: #### GLULS #### Point of Care testing ,Monocytes/100 leukocytes in Blood by Automated countOrdered By: Carmine Gutierrez on 26-75-8770Nmhjayfid/100 WBC (Bld)10.9 %Normal.[facility] Comment on above:Performed By: #### GLULS #### Point of Care testing ,Mucus [Presence] in Urine by AutomatedOrdered By: Carmine Gutierrez on 05-16-2025 Mucus Auto Ql (U)Rare [LPF][facility] Medical CenterNeutrophils [#/volume] in Blood by Automated countOrdered By: Carmine Gutierrez on 05-16-2025 Neutrophils (Bld) [#/Vol]3.1 10*3/uLNormal1.8-7.7FOhioHealth Doctors HospitalComment on above:Performed By: #### GLULS #### Point of Care testing ,Neutrophils/100 leukocytes in Blood by Automated countOrdered By: Carmine Gutierrez on 34-28-4548Yjmisaxaxmr/100 WBC (Bld)53.2 %Normal.[facility] HospitalComment on above:Performed By: #### GLULS #### Point of Care testing ,Nitrite Test strip Ql (U)Ordered By: Carmine Gutierrez on 22-28-3715Qxkvxlq Ql (U) NegativeNegAultman HospitalNo Panel InformationOrdered By: Carmine Gutierrez on 43-21-3885Nknpoxsn Creatinine Clearance (Chem69.78Parkwood HospitalNucleated erythrocytes [Presence] in Blood by Automated countOrdered By: Carmine Gutierrez on 58-50-2457Xxebazins RBC Auto Ql (Bld)0.0 /100{WBC}0-0.5FOhioHealth Doctors HospitalOpiates [Presence] in Urine by Screen methodOrdered By: Carmine Gutierrez on 41-64-4200Lgfeesk Screen Ql (U)Negative NegativeParkwood HospitalPhencyclidine Screen Ql (U)Ordered By: Carmine Gutierrez on 41-69-8970Ltzfmnmmpewyt Ql (U)NegativeNegAultman HospitalPlatelet mean volume [Entitic volume] in Blood by Automated count Ordered By: Carmine Gutierrez on 15-83-4786Ldhovevp mean volume (Bld) [Entitic vol] 7.4 fLNormal6.6-10.1FOhioHealth Doctors HospitalComment on above:Performed By: #### GLULS #### Point of Care testing ,Platelets [#/volume] in Blood by Automated countOrdered By: Carmine Gutierrez on 51-64-9873Vxoluomjw (Bld) [#/Vol]230 10*3/tEErenqj387-987NqevvjyuyParkwood HospitalComment on above:Performed By: #### GLULS #### Point of Care testing ,Potassium [Moles/volume] in Serum or PlasmaOrdered By: Carmine Gutierrez on 67-01-7473Mqgmnmafz [Moles/Vol]3.5 mmol/LNormal3.5-5.1FOhioHealth Doctors HospitalComment on above:Performed By: #### GLULS #### Point of Care testing ,Protein [Mass/volume] in Serum or PlasmaOrdered By: Carmine Gutierrez on 05-16-2025 Protein [Mass/Vol]7.5 g/dLNormal6.4-8.9Parkwood HospitalComment on above:Performed By: #### GLULS #### Point of Care testing ,Protein [Mass/volume] in Urine by Test stripOrdered By: Carmine Gutierrez on 80-48-4066Rgrmwds (U) [Mass/Vol]30 mg/dLNormalNegativeParkwood HospitalComment on above:Order Comment: PER JACQUARD LOOM FIXER AGUILA PT ADMITTED FROM ER. USE ER BLOOD-[id number] By: #### TSH3 wRFLX, LIPID, [id number] #### [place] [address] USASerum globulin measurement by calculation (mass/volume) Ordered By: Carmine Gutierrez on 93-15-4476Rspkkcxb (S) [Mass/Vol]4.2 g/dLNoal Parkwood HospitalComment on above:Performed By: #### GLULS #### Point of Care testing ,Serum or plasma albumin/globulin mass ratioOrdered By: Carmine Gutierrez on 51-29-3965Aenqmtn/Globulin [Mass ratio]0.8 {ratio}NormalParkwood HospitalComment on above:Performed By: #### GLULS #### Point of Care testing ,Serum or plasma anion gap determinationOrdered By: Carmine Gutierrez on 05-16-2025 Anion gap [Moles/Vol]10.1 mmol/LNormal6.0-15.0[facility] Comment on above:Performed By: #### GLULS #### Point of Care testing ,Serum or plasma ethanol measurement (mass/volume)Ordered By: Carmine Gutierrez on 89-73-6835Wjcqlxy [Mass/Vol]TNOhioHealth Arthur G.H. Bing, MD, Cancer CenterComment on above:Test not performedSodium [Moles/volume] in Serum or PlasmaOrdered By: Carmine Gutierrez on 89-46-0535Gablps [Moles/Vol]137 mmol/LPctcoi398-097YrskiicieParkwood HospitalComment on above:Performed By: #### GLULS #### Point of Care testing ,Specific gravity Test strip (U) [Rel density]Ordered By: Carmine Gutierrez on 02-18-4841Eglymlbg gravity (U) [Rel density]1.0221.001-1.030Parkwood HospitalThyroid Stim Hormone w/Rflxon 21-29-2392Qrtapvo Stim Hormone w/Rflx5.00 u[iU]/mLNormal0.45-5.33The [facility] Hospital Physician GroupComment on above: Order Comment: PER JACQUARD LOOM FIXER AGUILA PT ADMITTED FROM ER. USE ER BLOOD-[id number] By: #### TSH3 wRFLX, LIPID, [id number] #### [place] [address] USAThyrotropin [Units/volume] in Serum or PlasmaOrdered By: Carmine Gutierrez on 88-44-8960CVW Qn4.87 m[IU]/LNormal0.45-5.33Parkwood HospitalComment on above:Result Comment: PERFORMED BY: [place] [address] PATHOLOGIST ADMISSIONS DIRECTOR HILDA LEE M.D.Performed By: #### GLULS #### Point of Care testing ,Urea nitrogen [Mass/volume] in Serum or PlasmaOrdered By: Carmine Gutierrez on 83-77-1259Wlaq nitrogen [Mass/Vol]18 mg/dLNormal7-25Parkwood HospitalComment on above:Performed By: #### GLULS #### Point of Care testing ,Urobilinogen Test strip (U) [Mass/Vol]Ordered By: Carmine Gutierrez on 05-16-2025 Urobilinogen (U) [Mass/Vol]2 mg/dLHighNoCleveland Clinic Fairview Hospital Vitamin D 25 Hydroxy Totalon 69-26-3068Gakbrdb D 25 Hydroxy Total8.8 ng/mLLow 30-100The [facility] Hospital Physician GroupComment on above:Order Comment: PER JACQUARD LOOM FIXER AGUILA PT ADMITTED FROM ER. USE ER BLOOD-[id number] Comment: VITAMIN D STATUS 25(OH)VITAMIN D RANGE (ng/mL) Deficient <20 Insufficient 20 to <30 Sufficient 30 to 100 Reference: Boaz MF,Rose Marie NC, Lobito GASTELUM, et al. Evaluation,treatment, and prevention of vitamin D deficiency; an Endocrine Society clinical practice guideline. JCEM. 2010; 96(7):1911-30. PERFORMED BY: [place] [address] PATHOLOGIST ADMISSIONS DIRECTOR HILDA LEE M.D.Performed By: #### TSH3 wRFLX, LIPID, [id number] #### [facility] [address] [place] [address] USApH of Urine by Test stripOrdered By: Carmine Gutierrez on 65-06-2745jI (U)5.5 [pH]Normal5.0-9.0Parkwood HospitalComment on above:Order Comment: PER JACQUARD LOOM FIXER AGUILA PT ADMITTED FROM ER. USE ER BLOOD-[id number] By: #### TSH3 wRFLX, LIPID, [id number] #### [facility] [address] [place] [address] USAAbstracton [id number] Evelin Patterson 1955 M Date Provider Department Center 05/13/2025 [facility]-MARIUSZ CARD [facility] Family History Problem Relation Age of Onset No Known Problems Mother No Known Problems Father Family Status - Relation Status Age at Mother FatherNormalUniversity of Ut Health [facility] Jacksonville HospitalOptical coherence tomography study reporton 35-98-0382AWII HealthcareNORI HealthcareIntravitreal Injection, Pharmacologic Agent - OD - Right Eyeon 23-73-9511FPOH HealthcareLeft eye Ophthalmologic treatmenton 59-61-8876UEPI HealthcareNo Panel Informationon 72-14-8751Ymrnwethk Study observation (narrative)NOMS HealthcareUrine Cultureon 40-17-5105Nodjxvjk identified Cx Nom (U)20,000 colonies/ml mixed bacterial skin contaminants 2 Days PERFORMED BY: [place] [address] PATHOLOGIST ADMISSIONS DIRECTOR HILDA LEE M.D.[facility] Physician GroupComment on above: Performed By: #### CUU #### [facility] [address] [place] [address] USAUrine cultureOrdered By: Arline Lazar on 03-25-2025 Bacteria identified Cx Nom (U)2 DaysParkwood Hospital Intravitreal Injection, Pharmacologic Agent - OD - Right Eyeon 35-79-4560BYTE HealthcareRadiology Study observation (narrative)[facility] HealthcareOptical coherence tomography study reporton 35-71-3111TYPPMissouri Rehabilitation Center Healthcare Radiology Study observation (narrative)NOMS HealthcareCT lumbar spine w conon 69-64-8655AD lumbar spine w [facility] [place] [address] [place] [address] Interventional Radiology Rpt Signed Patient: Evelin Patterson MR#: [id number] : 1955 Acct:[id number] Age/Sex: 69 / M ADM Date: 02/25/25 Loc: XD Room: Type: [facility] Attending Dr: Margot Singh MD Copies to: Margot Titus MD Ordering Provider: Margot Titus MD Date of Service: 02/25/25 IR/IR myelogram spine lumbosacral: S22.07OD, M51.372, M43.15 ([id number]) CT/CT lumbar spine w con: S22.07OD, M51.372, [...] Tinajero M.D. 02/25/2025 1:51 PM Dictation Location: [place] [address] Transcribed By: [facility] 02/25/25 2521 Dictated By: Michael Tinajero DO 02/25/25 1335 Signed By: 02/25/25 1353[facility] Physician GroupINR in Platelet poor plasma by Coagulation assayOrdered By: Arline Lazar on 94-39-6682BCJ Coag (PPP) [Relative time]1.0 {INR}NormalParkwood HospitalComment on above:INR Therapeutic Range A) Pre- and Peroperative OAT started two weeks before surgery. NOT HIP SURGERY: 1.5 - 2.5 HIP SURGERY: 2 - 3B) Primary and secondary prevention of venous THROMBOSIS: 2 - 3C) Active venous thrombosis, pulmonary embolismand prevention of recurrent venous thrombosis: 2 - 3D) Prevention of arterial thromboembolismincluding patients with mechanical heart valves: 3 - 4.5Result Comment: INR Therapeutic Range A) Pre- and [...] heart valves: 3 - 4.5 PERFORMED BY: [place] [address] PATHOLOGIST ADMISSIONS DIRECTOR HILDA LEE M.D.Performed By: #### PT, PLT #### [place] [address] USAInterventional radiology reportOrdered By: Michael Tinajero on 52-94-9471Vjjhu reportBELLEVUE HOSPITAL [facility] [place] [address] [place] [address] Interventional Radiology Rpt Signed Patient: Evelin Patterson MR#: [id number] : 1955 Acct:[id number] Age/Sex: 69 / M ADM Date: 5 Loc: XD Room: Type: [facility] Attending Dr: Margot Singh MD Copies to: Margot Titus MD~ Ordering Provider: Margot Titus MD Date of Service: 02/25/25 IR/IR myelogram spine lumbosacral: S22.07OD, M51.372,M43.15 ([id number]) CT/CT lumbar spine w con: S22.07OD, M51.372, [...] position confirmed with return of clear colorless CSF.17 cc of Isovue-200 administered. The needle was [...] 2 to 3 years. Weakness. History of C42tqcymmsrhjh fracture. FINDINGS: Lumbar lordosis is maintained. No [...] Mild bilateral SI joint degenerative changes. Subchondral cysticchanges of the right femoral head. Chronic AVN maybe present. Developed compared to prior CT of abdomen and pelvis 08/30/2020. Incompletely visualized left hip unremarkable. IMPRESSION: Mild to moderate multilevel discovertebral degenerative changes. Mild central canal stenosis. Mild bilateral SI joint degeneration. Chronic AVNchanges of the right femoral head. Developedsince prior examination 08/30/2020 CT abdomen and pelvis. Impression dictated by: Michael Tinajero M.D. 02/25/2025 1:51 PM Dictation Location: [place] [address] Transcribed By: [facility] 02/25/25 1351 Dictated By: Michael Tinajero DO 02/25/25 1335 Signed By: 02/25/25 1351 Parkwood HospitalPlatelets [#/volume] in Blood by Automated countOrdered By: Arline Lazar on 46-88-5628Najirlcuf (Bld) [#/Vol]228 10*3/uL Phhudu610-988ZacjjezycParkwood HospitalComment on above:Result Comment: PERFORMED BY: [place] [address] PATHOLOGIST ADMISSIONS DIRECTOR HILDA LEE M.D.Performed By: #### PT, PLT #### [facility] [address] [place], [place] [address] USAProthrombin time (PT)Ordered By: Arline Lazar on 07-84-2089XT Coag (PPP) [Time]11.2 sNormal9.0-12.9Parkwood HospitalComment on above:A hematocrit value greater than 55% may lead to inaccurate results in coagulation testing. Patientshaving hematocrit values >55% require a special collection tube for coagulation studies. Please contact the laboratory at [phone] for redraw instructions.Result Comment: A hematocrit value greater than 55% may lead to inaccurate results in coagulation testing. Patients having hematocrit values >55% require a special collection tube for coagulation studies. Please contact the laboratory at [phone] for redraw instructions.Performed By: #### PT, PLT #### [facility] [address] [place] [address] USAOrders Onlyon 61-26-1973Zjfkis [id number] Evelin Patterson 1955 M Date Provider Department [place] 12/29/2024 [id number], HISTORICAL CARD Nery Castro Family History Problem Relation Age of Onset No Known Problems Mother No Known Problems Father Family Status - Relation Status Age at Mother FatherNormalUniversity of Ut Health [facility] Jacksonville Hospital36on 42-99-511505Pf. [place] made aware yesterday that patient had lipid panel in October 2024. He said patient does not need repeat labs at this time. Patient made aware.Normal [place] [address]on 13-15-989095D/p heart cath on 11/18/2024, Dr. Hays would like lipid/LFT's on patient prior to his apt in January 2025. LM for patient to return my call. Orders put in and [facility] to [facility].NormalProMedica Memorial Hospital 33-36-1712CIVK Attestation signed by Barb Hays MD at 11/18/2024 12:05 PM Barb Hays MD, MPH, [facility], [facility], [facility] Interventional Cardiology Pager Email: [email or web address] Patient: Evelin Adrian Yesenia Procedure Information Date/Time: 11/18/24 1145 Procedure: Coronary angiography - VIANCAJ Location: [facility] ENGINEER 2 BIPLANE / [facility] (Cath) Providers: Barb Hays MD [...] products. Plan discussed with attending. Additional Equipment RequestsNormalUniversUniversity Hospitals Health System [id number] Attestation with edits by Barb Hays MD at 11/18/2024 12:11 PM Barb Hays MD, MPH, [facility], [facility], [facility] Interventional Cardiology Pager Email: [email or web address] H&P reviewed. The patient was examined and there are no changes to the H&P. Proceed with RHC and CORS for dyspnea, unstable angina. Saul Diego MD PGY-5 Bakery Clerk [facility] Pager # [phone] HospitalNURSNOTEon 51-05-4435JWXPNDCAJR educated pt on d/c instructions. This included: site care, limited physical [...] wheeled off of unit with all of belongings.NormalUnMemorial Health SystemOrders Onlyon 60-04-1919Uebcax [id number] Evelin Patterson 1955 M Date Provider Department Center 11/10/2024 MARGARITA TURNER [facility] V[facility] LAB MN HeartVAS Family History Problem Relation Age of Onset No Known Problems Mother No Known Problems Father Family Status - Relation Status Age at Mother FatherNormalUniMarion Hospital36on [id number] message script sent into [employer] in [facility]36 Patient states since he started Carvedilol. He has been taking for 2 to 3 days, patient states he's very fatigued, having hallucinations. Would you like to make a change, or recommendations. Please advise.[facility] Health CenterHPon 40-25-5694PCJIVEVTRT CLINIC Cardiology Clinic Note Chief Complaint: New patient here to re-establish care. He had heart cath back in 2009 at [facility]. He was diagnosed with afib [...] can be completed. Barb Hays MD, MPH, [facility], [facility], [facility] Interventional Cardiology Pager Email: [email or web address] HospitalOffice Visiton 84-53-5968Fiadxy-up [id number] Evelin Patterson 1955 M Date Provider Department Center 10/28/2024 271-BARB HAYS [facility] Family History Problem Relation Age of Onset No Known Problems Mother No Known Problems Father Family Status - Relation Status Age at Mother Father Level of Service:01359 [place] OFFICE/OUTPATIENT [facility] [address] HospitalOrders Onlyon 95-11-9312Utorzk [id number] Patterson,Evelin Adrian 1955 M Date Provider Department Center 10/28/2024 JADEN HONG [facility] Family History Problem Relation Age of Onset No Known Problems Mother No Known Problems Father Family Status - Relation Status Age at Mother FatherNoalUAshtabula County Medical CenterProvider Letteron 06-14-2024 Provider LetterProvider Letter June 14, 20[address]ENIA [address] [place] [id number] : 1955 Dear Evelin , We have been trying to reach you with no success. It is important that you return our call upon receiving this letter. Also, at the time of your call, please provide us with your current information. Thank you for your prompt attention to this matter. Sincerely, Dr. Javid Haynes MD General SurgeryCleveland ClinicCBC AUTO DIFFon 98-36-7032ZNTB # 0.1 103/ulNormal0.0-0.1The Samaritan HospitalComment on above:Performed By: #### TSH, BMP #### [facility] [address] [place] [address] [address] Ladan DiehlBasophils/100 WBC (Bld)1.2 %Normal0.2-2.0The [facility] Comment on above:Performed By: #### TSH, BMP #### [facility] [address] [place] [address] Dr. Ladan Schmidt #0.4 103/ulNormal0.0-0.7The Samaritan HospitalComment on above: Performed By: #### TSH, BMP #### [facility] [address] [place] [address] Dr. Ladan Josephosinophils/100 WBC (Bld)4.9 %Normal0.9-7.0The [facility] Comment on above:Performed By: #### TSH, BMP #### [facility] [address] [place] [address] Dr. Ladan Ayersthrocyte distribution width (RBC) [Ratio]14.8 %Rhchev10.0-15.0 The Samaritan HospitalComment on above:Performed By: #### TSH, BMP #### [facility] [address] [place] [address] Dr. Ladan DiehlHematocrit (Bld) [Volume fraction]36.7 %Critically low42.0-54.0 The [facility]itan HospitalComment on above:Performed By: #### TSH, BMP #### [facility] [address] [place] [address] Dr. Ladan DiehlHemoglobin (Bld) [Mass/Vol]12.0 g/dLCritically low14.0-18.0The [facility]itan HospitalComment on above:Performed By: #### TSH, BMP #### [facility] [address] [place] [address] Dr. Ladan Partida #0.01 10e3/ulNormal0.00-0.03The [facility]itan HospitalComment on above:Performed By: #### TSH, BMP #### [facility] [address] [place] [address] Dr. Ladan Partida %0.1 %Normal0.0-0.5The [facility]itan HospitalComment on above: Performed By: #### TSH, BMP #### [facility] [address] [place] [address] Dr. Ladan Moser #2.0 103/ulNormal1.2-3.8The [facility]aritan HospitalComment on above:Performed By: #### TSH, BMP #### [facility] [address] [place] [address] Dr. Ladan Rogershocytes/100 WBC (Bld)27.1 %Ckcqok55.5-60.0The [facility]itan HospitalComment on above:Performed By: #### TSH, BMP #### [facility] [address] [place] [address] Dr. Ladan Vyas DIFF REQNONormalThe Samaritan HospitalComment on above: Performed By: #### TSH, BMP #### [facility] [address] [place] [address] Dr. Ladan Gibbs (RBC) [Entitic mass]29.6 kbBdivie80.9-34.0The [facility]itan HospitalComment on above:Performed By: #### TSH, BMP #### [facility] [address] [place] [address] Dr. Ladan Gibbs (RBC) [Mass/Vol]32.7 g/yPVnrmoo58.9-35.2The [facility]itan HospitalComment on above:Performed By: #### TSH, BMP #### [facility] [address] [place] [address] Dr. Ladan Gibbs (RBC) [Entitic vol]90.6 nINaqvxz32.0-94.0The [facility]itan HospitalComment on above:Performed By: #### TSH, BMP #### [facility] [address] [place] [address] Dr. Ladan Barone #0.8 103/ulNormal0.3-0.8The [facility]itan HospitalComment on above:Performed By: #### TSH, BMP #### [facility] [address] [place] [address] Dr. Ladan Stanleyocytes/100 WBC (Bld)10.4 %Normal1.7-12.0[facility] Comment on above:Performed By: #### TSH, BMP #### [facility] [address] [place] [address] [address] Ladan Shrestha #4.2 103/ulNormal1.4-6.5The [facility] Health Institutement on above:Performed By: #### TSH, BMP #### [facility] [address] [place] [address] Dr. Ladan Humphreyutrophils/100 WBC (Bld)56.3 %Slqnwv77.0-75.0The [facility]itan HospitalComment on above:Performed By: #### TSH, BMP #### [facility] [address] [place] [address] Dr. Ladan Tejadalet mean volume (Bld) [Entitic vol]9.9 fLNormal9.5-13.5The [facility]itan HospitalComment on above:Performed By: #### TSH, BMP #### [facility] [address] [place] [address] Dr. Ladan DiehlPLT227 103/ymQpeuam901-327Gzn [facility]itan HospitalComment on above: Performed By: #### TSH, BMP #### [facility] [address] [place] [address] Dr. Ladan DiehlRBC4.05 106/ulCritically low4.70-6.10The [facility] on above:Performed By: #### TSH, BMP #### [facility] [address] [place] [address] Dr. Ladan DiehlWBC7.4 103/ulNormal4.0-11.0The [facility] on above: Performed By: #### TSH, BMP #### [facility] [address] [place] [address] Dr. Ladan Correa T3on 15-77-5818KZZO T32.07 pg/mlLCritically low2.18-3.98The [facility]itan HospitalComment on above:Performed By: #### TSH, BMP #### [facility] [address] [place] [address] Dr. Ladan Correa T4on 82-83-8066Aswo T4 [Mass/Vol]1.14 ng/dLNormal0.76-1.[address] [facility] HospitalCommclaren greater lansing hospital on above:Performed By: #### TSH, BMP #### [facility] [address] [place] [address] [address] Ladan DiehlGLYCOHEMOGLOBIN A1Con 07-81-5389GZV RECOMMENDATIONSEE BELOWNormal [facility] St. Mary HospitalComment on above:Result Comment: ADA RECOMMENDED LIMIT 4.0 - 6.0 ADA THERAPEUTIC TARGET < 7.0 ACTION SUGGESTED > 7.0Performed By: #### TSH, BMP #### [facility] [address] [place] [address] Dr. Ladan DiehlGlucose [Mass/Vol]134 mg/dLNoCherrington HospitalComment on above:Performed By: #### TSH, BMP #### [facility] [address] [place] [address] Dr. Ladan DiehlHbA1c (Bld) [Mass fraction]6.3 %Critically high4.5-6.2[facility]. Mary HospitalComment on above:Performed By: #### TSH, BMP #### [facility] [address] [place] [address] Dr. Ladan DiehlLIPID PROFILEon 06-09-6056FBEU-HDL RATIO NORMSEE [facility] HospitalComment on above:Result Comment: 3.3 - 4.4 LOW RISK 4.4 - 7.1 AVERAGE RISK 7.1 - 11.0 MODERATE RISK >11.0 HIGH RISKPerformed By: #### TSH, BMP #### [facility] [address] [place] [address] Dr. Ladan DiehlCholesterol [Mass/Vol]118 mg/dLNormal<=200The [facility] Comment on above:Performed By: #### TSH, BMP #### [facility] [address] [place] [address] Dr. Ladan DiehlCholesterol in HDL [Mass/Vol]43 mg/jYLwoxpd98-27Fbi [facility] HospitalComment on above:Performed By: #### TSH, BMP #### [facility] [address] [place] [address] Dr. Ladan Mishraesterol in LDL [Mass/Vol]48.8 mg/dLMercy Health St. Rita's Medical CenterComment on above:Performed By: #### TSH, BMP #### [facility] [address] [place] [address] Dr. Ladan Romero.total/Cholesterol in HDL [Mass ratio]2.7 {ratio} NormalThe Samaritan HospitalComment on above:Performed By: #### TSH, BMP #### [facility] [address] [place] [address] Dr. Ladan Gant NORMAL> or = 60 mg/dl - LOW CARDIOVASCULAR RISK <40 mg/dl - HIGH CARDIOVASCULAR RISKMercy Health St. Rita's Medical CenterComment on above:Performed By: #### TSH, BMP #### [facility] [address] [place] [address] Dr. Ladan Leiva CALC NORMALSEE BELOWMercy Health St. Rita's Medical CenterComment on above:Result Comment: <100 mg/dl OPTIMAL 100 - 129 mg/dl NEAR OR ABOVE OPTIMAL 130 - 159 mg/dl BORDERLINE HIGH 160 - 189 mg/dl HIGH >190 mg/dl VERY HIGH Performed By: #### TSH, BMP #### [facility] [address] [place] [address] Dr. Ladan DiehlTriglyceride [Mass/Vol]131 mg/dLNormal<=150[facility] Comment on above:Performed By: #### TSH, BMP #### [facility] [address] [place] [address] Dr. Ladan ManriqueLDL CALC26.2 mg/dLNoCherrington HospitalComment on above: Performed By: #### TSH, BMP #### [facility] [address] [place] [address] Dr. Ladan Varma PROFILEon 74-15-5473Tzyzkgo [Mass/Vol]2.7 g/dLCritically low3.4-5.0The [facility]itan HospitalComment on above:Performed By: #### TSH, BMP #### [facility] [address] [place] [address] Dr. Ladan DiehlAlbumin/Globulin [Mass ratio]0.4 {ratio}NormalThe Samaritan HospitalComment on above:Performed By: #### TSH, BMP #### [facility] [address] [place] [address] [address] Ladan MontañoP [Catalytic activity/Vol]154 U/LCritically ilob85-862Wdp [facility] HospitalComment on above:Performed By: #### TSH, BMP #### [facility] [address] [place] [address] [address] Ladan Gregg [Catalytic activity/Vol]25 U/CQgrdia11-88Qbm [facility] HospitalComment on above:Performed By: #### TSH, BMP #### [facility] [address] [place] [address] Dr. Ladan DiehlAST [Catalytic activity/Vol]38 U/LCritically qngs51-90Uij [facility] HospitalComment on above:Performed By: #### TSH, BMP #### [facility] [address] [place] [address] Dr. Ladan TrejoI, CONJUGATED0.2 mg/dLNormal0.0-0.2The [facility] Comment on above:Performed By: #### TSH, BMP #### [facility] [address] [place] [address] Dr. Ladan Trejoirubin [Mass/Vol]0.8 mg/dLNormal0.2-1.0The [facility] Comment on above:Performed By: #### TSH, BMP #### [facility] [address] [place] [address] Dr. Ladan DiehlGlobulin (S) [Mass/Vol]6.2 g/dLNormalThe [facility]aritan HospitalComment on above:Performed By: #### TSH, BMP #### [facility] Laboratory [address] [place] [address] Dr. Ladan DiehlProtein [Mass/Vol]8.9 g/dLCritically high6.4-8.2The Samaritan HospitalComment on above:Performed By: #### TSH, BMP #### [facility] [address] [address] [address] Ladan MauricioALBUMIN, RAND URon 80-67-6580oBFB09.4 mg/dLNormal<=30.0The Samaritan HospitalComment on above:Performed By: #### TSH, BMP #### [facility] [address] [address] [address] Ladan DiehlPROF CHEM 8 (BAS METB)on 66-73-8695Oxtro gap [Moles/Vol]10.7 mmol/LNormalThe Samaritan HospitalComment on above:Performed By: #### TSH, BMP #### [facility] [address] [place] [address] Dr. Ladan DiehlCalcium [Mass/Vol]9.0 mg/dLNormal8.5-10.1[facility] Comment on above:Performed By: #### TSH, BMP #### [facility] [address] [place] [address] Dr. Ladan DiehlChloride [Moles/Vol]103 mmol/ULgymjn36-725Qle [facility] Comment on above:Performed By: #### TSH, BMP #### [facility] [address] [place] [address] Dr. Ladan DiehlCO2 [Moles/Vol]27.5 mmol/PHuavqn28.0-32.0[facility] Comment on above:Performed By: #### TSH, BMP #### [facility] [address] [place] [address] Dr. Ladan DiehlCreatinine [Mass/Vol]1.29 mg/dLNormal0.70-1.30The [facility]aritan HospitalComment on above:Performed By: #### TSH, BMP #### [facility] [address] [place] [address] Dr. Pickering ChangEGFR-AF NORTH KOREAN>60Normal>=60The Samaritan HospitalComment on above:Performed By: #### TSH, BMP #### [facility] [address] [place] [address] Dr. Ladan JosephGFR-NON AF IJWCVXGJ70 mL/min/1.56h7Lndoentxeb low>=60The [facility]aritan HospitalComment on above:Performed By: #### TSH, BMP #### [facility] [address] [address] [address] Ladan DiehlGlucose [Mass/Vol]108 mg/dLCritically wcuh59-549Nzq [facility]itan HospitalComment on above:Performed By: #### TSH, BMP #### [facility] [address] [address] [address] Ladan DiehlPotassium [Moles/Vol]4.2 mmol/LNormal3.5-5.1[facility] Comment on above:Performed By: #### TSH, BMP #### [facility] [address] [address] [address] Ladan DiehlSodium [Moles/Vol]137 mmol/KHlvfkl796-435EjyMount St. Mary Hospital Comment on above:Performed By: #### TSH, BMP #### [facility] [address] [address] [address] Ladan DiehlUrea nitrogen [Mass/Vol]12.0 mg/dLNormal7.0-18.0The [facility]aritan HospitalComment on above:Performed By: #### TSH, BMP #### [facility] [address] [place] [address] Dr. Ladan Wilson nitrogen/Creatinine [Mass ratio]9.3 mg/mgNormalThe Samaritan HospitalComment on above:Performed By: #### TSH, BMP #### [facility] [address] [place] [address] Dr. Ladan Quiles 85-17-0138GUA1.668 uIU/mLCritically high0.358-3.740The [facility]aritan HospitalComment on above:Performed By: #### TSH, BMP #### [facility] [address] [place] [address] Dr. Ladan DiehlGLYCOHEMOGLOBIN A1Con 72-43-5218HSW RECOMMENDATIONSEE BELOWNormal The Samaritan HospitalComment on above:Result Comment: ADA RECOMMENDED LIMIT 4.0 - 6.0 ADA THERAPEUTIC TARGET < 7.0 ACTION SUGGESTED > 7.0Performed By: #### A1C #### [facility] [address] [address] [address] Ladan DiehlGlucose [Mass/Vol]140 mg/dLNoCherrington HospitalComment on above:Performed By: #### A1C #### [facility] [address] [place], [place] [address] Dr. Ladan DiehlHbA1c (Bld) [Mass fraction]6.5 %Critically high4.5-6.2The Samaritan HospitalComment on above:Performed By: #### A1C #### [facility] [address] [address] [address] Ladan DiehlCT CSPINE WO CONon [id number] CSPINE WO CONEXAMINATION: CT CSPINE WO CON HISTORY: UNSPECIFIED INJURY [...] Electronically authenticated by: CAROL YIP Date: 2022-05-17 13:25NoCherrington HospitalCT HEAD WO CONon [id number] HEAD WO CONEXAMINATION: CT HEAD WO CON HISTORY: UNSPECIFIED INJURY [...] Electronically authenticated by: CAROL YIP Date: 2022-05-17 13:07[facility] CenterXR CHEST 1 Von [id number] CHEST 1 VPORTABLE CHEST X-RAY. INDICATION: Chest pain. COMPARISON: 01/18/2022 TECHNIQUE: Single AP portable chest radiograph. FINDINGS: TUBES AND LINES: None. LUNGS: Hyperexpanded lungs. Minimal left basilar opacities. PLEURA: Questionable trace left effusion. HEART AND MEDIASTINUM: Within normal limits for portable technique. OSSEOUS STRUCTURES: No acute abnormality. IMPRESSION: Minimal left basilar opacities probably atelectasis. Electronically authenticated by: ABBIE AMBROCIO Date: 2022-05-17 12:53[facility] Medical CenterProgress Noteson [id number] Authentication Interface Message TextEMERGENCY TRIAGE, TREAT AND TRANSPORT (ET3) DOCUMENTATION OF TELEHEALTH VISIT Date / Time: 05/01/2022599 Name: Evelin Patterson : 1955 SSN: [id number] EMS Agency: [facility] [x] Verbal consent obtained [] [...] Disposition Reported: Same ET3 Encounter Completed by: Yuri Kramer [facility] SystemPARCXMART TECHNOLOGIES System Activated partial thromboplastin time (aPTT) in platelet poor plasma by coagulation aOrdered By: Ramesh Byrd on 50-45-6223nOLE Coag (PPP) [Time] 24.8 s25.1-36.5FOhioHealth Doctors HospitalAutomated erythrocytes count in urine sediment (number/area)Ordered By: Ramesh Byrd on 46-45-3432GPC Auto (Urine sed) [#/Area]20-49 [HPF]0-4FOhioHealth Doctors HospitalAutomated leukocytes count in urine sediment (number/area)Ordered By: Ramesh Byrd on 56-99-2638NTJ Auto (Urine sed) [#/Area]1-2 [HPF]0-4FOhioHealth Doctors HospitalBasophils Auto (Bld) [#/Vol]Ordered By: Ramesh Byrd on 04-12-2022 Basophils (Bld) [#/Vol]0.0 10*3/uL0.0-0.2FOhioHealth Doctors Hospital Basophils/100 WBC Auto (Bld)Ordered By: Ramesh Byrd on 04-12-2022 Basophils/100 WBC (Bld)0.6 %.[facility]wood HospitalBilirubin Test strip Ql (U)Ordered By: Ramesh Byrd on 57-93-1345Irctubnjp Ql (U)Negative NegativeParkwood HospitalBlood hemoglobin measurement (mass/volume)Ordered By: Ramesh Byrd on 70-11-2645Wrhpprcdtt (Bld) [Mass/Vol]12.2 g/dL13.0-17.0[facility] HospitalBlood leukocytes automated count (number/volume)Ordered By: Ramesh Byrd on 69-78-1845BDI (Bld) [#/Vol]6.4 10*3/uL4.5-11.0[facility] HospitalBody fluid albumin measurement (mass/volume)Ordered By: Ramesh Byrd on 04-12-2022 Albumin (Body fld) [Mass/Vol]2.3 g/dL3.2-5.5FOhioHealth Doctors Hospital Color Auto (U)Ordered By: Ramesh Byrd on 36-33-5183Dyfom (U)YellowYellow [facility] HospitalCreatinine and Glomerular filtration rate.predicted panel (S/P/Bld)Ordered By: Ramesh Byrd on 04-12-2022 Creatinine [Mass/Vol]1.14 mg/dL0.64-1.27[facility] Eosinophils Auto (Bld) [#/Vol]Ordered By: Ramesh Byrd on 04-12-2022 Eosinophils (Bld) [#/Vol]0.2 10*3/uL0.0-0.45[facility] Eosinophils/100 WBC Auto (Bld)Ordered By: Ramesh Byrd on 04-12-2022 Eosinophils/100 WBC (Bld)2.7 %.[facility]wood HospitalErythrocyte distribution width Auto (RBC) [Ratio]Ordered By: Ramesh Byrd on 04-12-2022 Erythrocyte distribution width (RBC) [Ratio]16.7 %12.0-14.8[facility] HospitalEstimated glomerular filtration rate (GFR) non- Ordered By: Ramesh Byrd on 47-71-7245AET/1.73 sq M.predicted among non- blacks MDRD (S/P/Bld) [Vol rate/Area]> 60 mL/MinParkwood HospitalGlobulin Calc (S) [Mass/Vol]Ordered By: Ramesh Byrd on 04-12-2022 Globulin (S) [Mass/Vol]4.7 g/dLParkwood HospitalGlucose Glucometer (BldC) [Mass/Vol]Ordered By: Ramesh Byrd on 10-12-3756Vjgyoyb [Mass/Vol]168 mg/dLParkwood HospitalComment on above:Random Glucose Reference Range is dependent on time and content of last meal. Glucose of more than 200 mg/dL in a nonstressed, ambulatory subject supports the diagnosis of Diabetes Mellitus.Hematocrit Auto (Bld) [Volume fraction]Ordered By: Ramesh Byrd on 54-14-7226Akbcmqogoo (Bld) [Volume fraction]36.7 % 38.8-50.0[facility] HospitalKetones Auto test strip (U) [Mass/Vol] Ordered By: Ramesh Byrd on 86-82-5509Dcnwaok (U) [Mass/Vol]TraceNegative [facility] HospitalLaboratory - Chemistry and Chemistry - challengeOrdered By: Ramesh Byrd on 60-36-2969Eoatqopgy [Mass/Vol]1.3 mg/dL1.6-2.6FOhioHealth Doctors HospitalNatriuretic peptide B (Bld) [Mass/Vol]196.0 pg/mL5-100[facility] HospitalLaboratory - CoagulationOrdered By: Ramesh Byrd on 72-97-9303EP Coag (PPP) [Time]12.5 s 9.0-12.9[facility] HospitalLaboratory - Hematology and Cell counts Ordered By: Ramesh Byrd on 09-41-7996Iqjgiichh RBC/100 WBC (Bld) [Ratio] 0.1 %0-0.5FOhioHealth Doctors HospitalLaboratory - UrinalysisOrdered By: Ramesh Byrd on 77-34-1204Yshhzmh casts LM Ql (Urine sed)0-8 [LPF]0-8 [facility] HospitalLymphocytes Auto (Bld) [#/Vol]Ordered By: Ramesh Byrd on 10-21-9714Xytkmfcpsxs (Bld) [#/Vol]1.0 10*3/uL1.00-4.8 [facility] HospitalLymphocytes/100 WBC Auto (Bld)Ordered By: Ramesh Byrd on 89-18-3065Chwbepaztwp/100 WBC (Bld)16.1 %.[facility] HospitalMCH Auto (RBC) [Entitic mass]Ordered By: Ramesh Byrd on 16-35-9126EQW (RBC) [Entitic mass]31.0 pg27.5-35.2FOhioHealth Doctors HospitalMCHC Auto (RBC) [Mass/Vol]Ordered By: Ramesh Byrd on 94-72-6136NNYL (RBC) [Mass/Vol]33.1 g/dL32.5-35.6FOhioHealth Doctors HospitalMCV Auto (RBC) [Entitic vol]Ordered By: Ramesh Byrd on 14-21-6049AHN (RBC) [Entitic vol]93.5 fL83.5-101[facility] HospitalMonocytes Auto (Bld) [#/Vol]Ordered By: Ramesh Byrd on 53-29-6519Dhpwejfrn (Bld) [#/Vol]0.8 10*3/uL0.0-0.8[facility] HospitalMonocytes/100 WBC Auto (Bld)Ordered By: Ramesh Byrd on 55-35-9690Wocmttlfd/100 WBC (Bld)12.0 %. [facility] HospitalNeutrophils Auto (Bld) [#/Vol]Ordered By: Ramesh Byrd on 35-29-2973Ooipetlruuj (Bld) [#/Vol]4.4 10*3/uL1.8-7.7 [facility] HospitalNeutrophils/100 WBC Auto (Bld)Ordered By: Ramesh Byrd on 82-52-1199Sknlxjyzyre/100 WBC (Bld)68.6 %.[facility] HospitalNitrite Test strip Ql (U)Ordered By: Ramesh Byrd on 51-36-9162Vasqvrj Ql (U)NegativeNegativeParkwood HospitalNo Panel InformationOrdered By: Ramesh Byrd on 99-38-4031Hluaknwai GFR ()> 60 mL/MinParkwood HospitalComment on above: GFR estimated reference range: According to KDOQI guidelines, <60 ml/min/1.73m2 is sufficient todiagnose a patient with chronic kidney disease.Pharmacy Creatinine Clearance (Chem97.67[facility] HospitalPlatelet mean volume Auto (Bld) [Entitic vol]Ordered By: Ramesh Byrd on 04-12-2022 Platelet mean volume (Bld) [Entitic vol]8.0 fL6.6-10.1FOhioHealth Doctors HospitalPlatelet poor plasma international normalized ratio (INR) by coagulation assay (relatOrdered By: Ramesh Byrd on 81-61-7360GUF Coag (PPP) [Relative time]1.1 {INR}Parkwood HospitalComment on above:INR Therapeutic Range A) Pre- and Peroperative OAT started two weeks before surgery. NOT HIP SURGERY: 1.5 - 2.5 HIP SURGERY: 2 - 3 B) Primary and secondary prevention of venous THROMBOSIS: 2 - 3 C) Active venous thrombosis, pulmonary embolism and prevention of recurrent venous thrombosis: 2 - 3 D) Prevention of arterial thromboembolism including patients with mechanical heart valves: 3 - 4.5Platelets Auto (Bld) [#/Vol]Ordered By: Ramesh Byrd on 62-36-9030Nexkayidv (Bld) [#/Vol]191 10*3/fF869-477FjbsaufybParkwood HospitalProtein Auto test strip (U) [Mass/Vol]Ordered By: Ramesh Byrd on 02-30-7990Eajuxue (U) [Mass/Vol]100 mg/dLNegativeParkwood HospitalProtein [Mass/volume] in Serum or PlasmaOrdered By: Ramesh Byrd on 07-97-5174Pvdhthp [Mass/Vol]7.0 g/dL 6.1-7.9Park[facility] HospitalRBC Auto (Bld) [#/Vol]Ordered By: Ramesh Byrd on 96-06-9235JFI (Bld) [#/Vol]3.93 10*6/uL3.90-5.60[facility] Hospitalerum or plasma alanine aminotransferase measurement without P-5'-P (enzymatic activiOrdered By: Ramesh Byrd on 50-58-9038UPM No additional P-5'-P [Catalytic activity/Vol]34 U/S55-75SipvxikrsElyria Memorial Hospitalerum or plasma albumin/globulin mass ratioOrdered By: Ramesh Byrd on 95-69-3169Pvhobge/Globulin [Mass ratio]0.5 {ratio}[facility] Hospitalerum or plasma alkaline phosphatase measurement (enzymatic activity/volume)Ordered By: Ramesh Byrd on 56-32-0608MCG [Catalytic activity/Vol]97 U/J56-28SfakifarlElyria Memorial Hospitalerum or plasma anion gap determinationOrdered By: Ramesh Byrd on 60-20-5580Gfkki gap [Moles/Vol]17.1 mmol/L6.0-15.0[facility] Hospitalerum or plasma aspartate aminotransferase measurement (enzymatic activity/volume)Ordered By: Ramesh Byrd on 26-24-3461LYW [Catalytic activity/Vol]136 U/N58-02OvxtnzupwElyria Memorial Hospitalerum or plasma calcium measurement (mass/volume)Ordered By: Ramesh Byrd on 00-62-0423Epobzye [Mass/Vol]8.6 mg/dL8.2-10.2FProvidence Hospitalerum or plasma chloride measurement (moles/volume) Ordered By: Ramesh Byrd on 77-39-7391Awjgaeql [Moles/Vol]97 mmol/L95-114 [facility] Hospitalerum or plasma glucose measurement (mass/volume)Ordered By: Ramesh Byrd on 61-73-6209Hqnzqmq [Mass/Vol]164 mg/mO91-229GwhmkfzwyParkwood HospitalComment on above:ADA recommended reference range Random Glucose Reference Range is dependent on time and content of last meal. Glucose of more than 200 mg/dL in a nonstressed, ambulatory subject supports the diagnosis of Diabetes Mellitus.Serum or plasma potassium measurement (moles/volume)Ordered By: Ramesh Byrd on 86-70-5781Xxvqzpiuv [Moles/Vol] 3.5 mmol/L3.5-5.1FProvidence Hospitalerum or plasma sodium measurement (moles/volume)Ordered By: Ramesh Byrd on 99-77-0372Yoqvjy [Moles/Vol]136 mmol/G186-942VhloxvmksElyria Memorial Hospitalerum or plasma total bilirubin measurement (mass/volume)Ordered By: Ramesh Byrd on 15-68-2337Cmhevagpv [Mass/Vol]1.3 mg/dL0.3-1.2FOhioHealth Doctors Hospital Comment on above:Samples from patients who have taken Naproxen have shown spurious elevation in Total Bilirubin levels. A metabolite of Naproxen, O- desmethylnaproxen, has been shown to interfere with the Ronny-Chirag method for measuring Total Bilirubin.Serum or plasma total carbon dioxide measurement (moles/volume)Ordered By: Ramesh Byrd on 92-95-8308AT4 [Moles/Vol]25.4 mmol/L22.0-30.0[facility] Hospitalerum or plasma urea nitrogen measurement (mass/volume)Ordered By: Ramesh Byrd on 02-50-1057Okrg nitrogen [Mass/Vol]13 mg/dL9-23[facility] Hospitalpecific gravity Auto test strip (U) [Rel density]Ordered By: Ramesh Byrd on 04-12-2022 Specific gravity (U) [Rel density]1.0201.001-1.030[facility] Hospitalquamous epithelial cells detection in urine sediment by light microscopy Ordered By: Ramesh Byrd on 82-57-9127Opkciwtcnq cells.squamous LM Ql (Urine sed)0-1 [HPF]0-2FOhioHealth Doctors HospitalTS DL <= 0.005 mIU/L Qn Ordered By: Ramesh Byrd on 95-04-7068GZA Qn13.14 m[IU]/L0.45-5.33[facility] HospitalTroponin I.cardiac [Mass/volume] in Serum or Plasma by High sensitivity methodOrdered By: Ramesh Byrd on 30-37-6377Wjswxxna I.cardiac High sensitivity method [Mass/Vol]18 pg/mL0-20Park[facility] HospitalUrine bacteria detection by automated methodOrdered By: Ramesh Byrd on 87-92-4249Xbjlvtdp Auto Ql (U)None seenNone SeenParkwood HospitalUrine clarity by refractometry automatedOrdered By: Ramesh Byrd on 68-48-3828Gxnwofd Refractometry automated (U)ClearClearFOhioHealth Doctors HospitalUrine glucose measurement by automated test strip (mass/volume)Ordered By: Ramesh Byrd on 90-90-4035Phuhngh Auto test strip (U) [Mass/Vol]Normal mg/dLNoCleveland Clinic Fairview HospitalUrine hemoglobin detection by automated test stripOrdered By: Ramesh Byrd on 79-85-9686Lvlgqhacuu Auto test strip Ql (U)2+NegativeParkwood HospitalUrine leukocyte esterase detection by automated test stripOrdered By: Ramesh Byrd on 26-75-8035Annlfnylf esterase Auto test strip Ql (U)Negative NegativeParkwood HospitalUrobilinogen Auto test strip (U) [Mass/Vol]Ordered By: Ramesh Byrd on 67-25-0691Mpabmhsloxit (U) [Mass/Vol] Normal mg/dLNormJoint Township District Memorial HospitalpH Auto test strip (U)Ordered By: Ramesh Byrd on 78-00-5055kC (U)6.5 [pH]5.0-9.0[facility] HospitalAlbumin [Mass/volume] in Serum or PlasmaOrdered By: Lupe Hernandez on 25-58-7265Kthfwnd [Mass/Vol]1.9 g/dL3.2-5.5FOhioHealth Doctors Hospital Basophils Auto (Bld) [#/Vol]Ordered By: Lupe Hernandez on 18-44-1689Yvlfkyquu (Bld) [#/Vol]0.1 10*3/uL0.0-0.2FOhioHealth Doctors HospitalBasophils/100 WBC Auto (Bld)Ordered By: Lupe Hernandez on 23-86-0651Vxmwambhk/100 WBC (Bld)1.3 %.[facility] HospitalBlood hemoglobin measurement (mass/volume) Ordered By: Lupe Hernandez on 51-10-7149Qvyxjlzuqc (Bld) [Mass/Vol]11.2 g/dL 13.0-17.0[facility] HospitalBlood leukocytes automated count (number/volume)Ordered By: Lupe Hernandez on 76-43-7876CAA (Bld) [#/Vol]5.4 10*3/uL4.5-11.0[facility] HospitalCreatinine and Glomerular filtration rate.predicted panel (S/P/Bld)Ordered By: Lupe Hernandez on 04-09-2022 Creatinine [Mass/Vol]0.88 mg/dL0.64-1.27[facility] Eosinophils Auto (Bld) [#/Vol]Ordered By: Lupe Hernandez on 10-15-3521Jaouwayrlnd (Bld) [#/Vol]0.3 10*3/uL0.0-0.45[facility] Eosinophils/100 WBC Auto (Bld)Ordered By: Lupe Hernandez on 04-09-2022 Eosinophils/100 WBC (Bld)5.6 %.[facility] HospitalErythrocyte distribution width Auto (RBC) [Ratio]Ordered By: Lupe Hernandez on 04-09-2022 Erythrocyte distribution width (RBC) [Ratio]16.5 %12.0-14.8[facility] HospitalEstimated glomerular filtration rate (GFR) non- Ordered By: Lupe Hernandez on 20-48-6578WFY/1.73 sq M.predicted among non-blacks MDRD (S/P/Bld) [Vol rate/Area]> 60 mL/MinParkwood Hospital Globulin Calc (S) [Mass/Vol]Ordered By: Lupe Hernandez on 69-18-4936Comqvdmy (S) [Mass/Vol]4.2 g/dLParkwood HospitalGlucose Glucometer (BldC) [Mass/Vol]Ordered By: Lupe Hernandez on 93-75-6387Cwxwoqa [Mass/Vol]178 mg/dL [facility] HospitalComment on above:Random Glucose Reference Range is dependent on time and content of last meal. Glucose of more than 200 mg/dL in a nonstressed, ambulatory subject supports the diagnosis of Diabetes Mellitus.Hematocrit Auto (Bld) [Volume fraction]Ordered By: Lupe Hernandez on 23-25-5566Lhhfqowaac (Bld) [Volume fraction]33.6 %38.8-50.0[facility] HospitalLaboratory - Hematology and Cell countsOrdered By: Lupe Hernandez on 82-07-5884Tnfvkluvg RBC/100 WBC (Bld) [Ratio]0.2 %0-0.5FOhioHealth Doctors HospitalLymphocytes Auto (Bld) [#/Vol]Ordered By: Lupe Hernandez on 19-92-3565Rcrbhnmqohb (Bld) [#/Vol]1.0 10*3/uL1.00-4.8[facility] HospitalLymphocytes/100 WBC Auto (Bld)Ordered By: Lupe Hernandez on 04-09-2022 Lymphocytes/100 WBC (Bld)18.3 %.[facility] CenterH Auto (RBC) [Entitic mass]Ordered By: Lupe Hernandez on 49-97-7778VAT (RBC) [Entitic mass] 31.1 pg27.5-35.2FOhioHealth Doctors HospitalMCHC Auto (RBC) [Mass/Vol] Ordered By: Lupe Hernandez on 94-74-9027GIQH (RBC) [Mass/Vol]33.5 g/dL32.5-35.6 [facility] HospitalMCV Auto (RBC) [Entitic vol]Ordered By: Lupe Hernandez on 03-33-6920XJQ (RBC) [Entitic vol]93.0 fL83.5-101[facility] HospitalMonocytes Auto (Bld) [#/Vol]Ordered By: Lupe Hernandez on 76-12-1997Cwmrlrdbu (Bld) [#/Vol]0.6 10*3/uL0.0-0.8[facility] HospitalMonocytes/100 WBC Auto (Bld)Ordered By: Lupe Hernandez on 04-09-2022 Monocytes/100 WBC (Bld)11.0 %.[facility] HospitalNeutrophils Auto (Bld) [#/Vol]Ordered By: Lupe Hernandez on 23-53-6251Fznqewsdrmw (Bld) [#/Vol]3.4 10*3/uL1.8-7.7FOhioHealth Doctors HospitalNeutrophils/100 WBC Auto (Bld) Ordered By: Lupe Hernandez on 45-26-2738Tcxbrtnqypl/100 WBC (Bld)63.8 %.[facility] HospitalNo Panel InformationOrdered By: Lupe Hernandez on 70-78-0225Nnarrzx Glucose CommentGlu2: cleaned meterParkwood HospitalEstimated GFR ()> 60 mL/MinParkwood HospitalComment on above:GFR estimated reference range: According to KDOQI guidelines, <60 ml/min/1.73m2 is sufficient todiagnose a patient with chronic kidney disease.Pharmacy Creatinine Clearance (Nkur021.27[facility] HospitalPlatelet mean volume Auto (Bld) [Entitic vol]Ordered By: Lupe Hernandez on 41-03-7569Pnhwbjoj mean volume (Bld) [Entitic vol]7.6 fL6.6-10.1 [facility] HospitalPlatelets Auto (Bld) [#/Vol]Ordered By: Lupe Hernandez on 17-26-1698Ryjlryhtr (Bld) [#/Vol]214 10*3/eC344-959KmsxafyonParkwood HospitalProtein [Mass/volume] in Serum or PlasmaOrdered By: Lupe Hernandez on 44-82-3109Wxufhgn [Mass/Vol]6.1 g/dL6.1-7.9[facility] RBC Auto (Bld) [#/Vol]Ordered By: Lupe Hernandez on 63-41-5952DWY (Bld) [#/Vol] 3.61 10*6/uL3.90-5.60[facility] Hospitalerum or plasma alanine aminotransferase measurement without P-5'-P (enzymatic activiOrdered By: Lupe Hernandez on 44-10-2023CEF No additional P-5'-P [Catalytic activity/Vol]21 U/L10-60 [facility] Hospitalerum or plasma albumin/globulin mass ratio Ordered By: Lupe Hernandez on 72-91-9468Jkqwwsu/Globulin [Mass ratio]0.5 {ratio} [facility] Hospitalerum or plasma alkaline phosphatase measurement (enzymatic activity/volume)Ordered By: Lupe Hernandez on 04-09-2022 ALP [Catalytic activity/Vol]89 U/G62-35RdkkdgnfdElyria Memorial Hospitalerum or plasma anion gap determinationOrdered By: Lupe Hernandez on 20-10-3230Wpnxd gap [Moles/Vol]8.4 mmol/L6.0-15.0[facility] Hospitalerum or plasma aspartate aminotransferase measurement (enzymatic activity/volume)Ordered By: Lupe Hernandez on 80-75-5194AHE [Catalytic activity/Vol]27 U/R17-17PtrggcbvxElyria Memorial Hospitalerum or plasma calcium measurement (mass/volume)Ordered By: Lupe Hernandez on 40-58-3971Hpzkddk [Mass/Vol]8.2 mg/dL8.2-10.2FProvidence Hospitalerum or plasma chloride measurement (moles/volume) Ordered By: Lupe Hernandez on 30-05-1551Ccwjaipd [Moles/Vol]98 mmol/L95-114 [facility] Hospitalerum or plasma glucose measurement (mass/volume)Ordered By: Lupe Hernandez on 57-54-4865Bfgpouk [Mass/Vol]150 mg/dL 70-100[facility] HospitalComment on above:ADA recommended reference range Random Glucose Reference Range is dependent on time and content of last meal. Glucose of more than 200 mg/dL in a nonstressed, ambulatory subject supports the diagnosis of Diabetes Mellitus.Serum or plasma potassium measurement (moles/volume)Ordered By: uLpe Hernandez on 92-02-2052Cagevmeft [Moles/Vol]3.4 mmol/L3.5-5.1FProvidence Hospitalerum or plasma sodium measurement (moles/volume)Ordered By: Lupe Hernandez on 80-16-9519Sgxwtl [Moles/Vol]134 mmol/P995-405PkhcteivrElyria Memorial Hospitalerum or plasma total bilirubin measurement (mass/volume)Ordered By: Lupe Hernandez on 28-11-0977Kdrbmieoe [Mass/Vol]0.7 mg/dL0.3-1.2FProvidence Hospitalerum or plasma total carbon dioxide measurement (moles/volume)Ordered By: Lupe Hernandez on 52-03-1939OG1 [Moles/Vol]31.0 mmol/L22.0-30.0[facility] Serum or plasma urea nitrogen measurement (mass/volume)Ordered By: Lupe Hernandez on 22-92-3895Qadv nitrogen [Mass/Vol]9 mg/dL9-23[facility] HospitalBacterial blood cultureOrdered By: Luke Moran on 96-42-7577Pretosse identified Cx Nom (Bld)NO GROWTH 5 DAYSParkwood Hospital Laboratory - Chemistry and Chemistry - challengeOrdered By: Luke Moran on 67-40-7937YG3 [Moles/Vol]29.4 mmol/L23.0-27.0[facility] HCO3 (Bld) [Moles/Vol]28.1 mmol/L23.0-29.0[facility] HospitalNo Panel InformationOrdered By: Luke Moran on 16-35-3273Ezzujuyi Blood Base Excess3.4 mmol/L-3.0-3.0[facility] HospitalArterial Blood Oxygen Content6.4 mmol/L6.6-9.7FOhioHealth Doctors HospitalArterial Blood Oxygen Oiqmghsnfs15.1 %95.0-100.0[facility] HospitalArterial Blood Partial Pressure CO243.2 mm[Hg]35.0-45.0[facility] Arterial Blood Partial Pressure O261.4 mm[Hg]80.0-100.0[facility] HospitalArterial Blood pH7.437.35-7.45[facility] Blood Gas Critical ValueSee commentParkwood HospitalComment on above:Critical Value called on: 04/04/2022 at 09:33Blood Gas Liter Flow2 L/min [facility] HospitalBlood Gas Sample SiteLeft radialParkwood HospitalFiO228 %[facility]wood HospitalOxygen Delivery DeviceNasal cannulaParkwood HospitalAutomated erythrocytes count in urine sediment (number/area)Ordered By: Jair Gabriel on 07-01-5486PIY Auto (Urine sed) [#/Area]3-4 [HPF]0-4FOhioHealth Doctors HospitalAutomated leukocytes count in urine sediment (number/area)Ordered By: Jair Gabriel on 33-80-2096VIF Auto (Urine sed) [#/Area]None seen [HPF]0-4FOhioHealth Doctors HospitalBilirubin Test strip Ql (U)Ordered By: Jair Gabriel on 04-03-2022 Bilirubin Ql (U)NegativeNegativeParkwood HospitalColor Auto (U) Ordered By: Jair Gabriel on [id number] (U)YellowYellowParkwood HospitalHepatitis B virus surface Ag [Presence] in Serum or Plasma by ImmunoassayOrdered By: Luke Moran on 24-66-2766POA surface Ag IA QlNegative NegativeParkwood HospitalComment on above:Performed at: [address] [id number] [employer]umin[employer] Siding Applicator: Genaro Becerril PhD, Phone: [phone] [Mass/volume] in Serum or PlasmaOrdered By: Luke Moran on 41-00-3426CgU [Mass/Vol]697 mg/zF41-370 [facility] HospitalIgG [Mass/volume] in Serum or PlasmaOrdered By: Luke Moran on 77-29-9857ClG [Mass/Vol]1107 mg/wB308-2548KrncqtvldParkwood HospitalIgM [Mass/volume] in Serum or PlasmaOrdered By: Luke Moran on 70-99-8671ZlD [Mass/Vol]91 mg/vT29-241GjddhasonParkwood HospitalComment on above:Performed at: [address] [id number] [employer]umin[employer] Siding Applicator: Genaro Becerril PhD, Phone: [phone] for Urine Ordered By: Luke Moran on 41-79-3689Xkedhaugyvvmae Immunofixation (U) [Interp]See comment.Parkwood HospitalComment on above:No monoclonality detected. Performed at: [address] [id number] [employer] S[employer] Applicator: Genaro Becerril PhD, Phone: [phone] light chains.kappa.free [Mass/volume] in SerumOrdered By: Luke Moran on 04-03-2022 Immunoglobulin light chains.kappa.free (S) [Mass/Vol]93.9 mg/L3.3-19.4FOhioHealth Doctors HospitalImmunoglobulin light chains.kappa.free/Immunoglobulin light chains.lambda.free [MassOrdered By: Luke Moran on 04-03-2022 Immunoglobulin light chains.kappa.free/Immunoglobulin light chains.lambda.free (S) [Mass ratio]1.520.26-1.65Parkwood HospitalComment on above: Performed at: [facility] [id number] Aluminum Siding Applicator: Genaro Becerril PhD, Phone: [phone] light chains.lambda.free [Mass/volume] in Serum or PlasmaOrdered By: Luke Moran on 79-13-9032Xrfgktegykxagm light chains.lambda.free [Mass/Vol]61.6 mg/L5.7-26.3 [facility] HospitalKetones Auto test strip (U) [Mass/Vol]Ordered By: Jair Gabriel on 08-15-2025Bmvfoep (U) [Mass/Vol]NegativeNegativeParkwood HospitalLaboratory - UrinalysisOrdered By: Jair Gabriel on 36-50-1217Hfjlpqa casts LM Ql (Urine sed)0-8 [LPF]0-8Parkwood HospitalNitrite Test strip Ql (U)Ordered By: Jair Gabriel on 73-75-1967Elgpjfv Ql (U)NegativeNegativeParkwood HospitalNo Panel InformationOrdered By: Luke Moran on 28-88-4444Wytotjdeg C InterpretationSee comment.[facility] HospitalComment on above:Negative Not infected with HCV, unless recent infection is suspected or other evidence exists to indicate HCV infection.Hepatitis C RNA QuantitativeN/[facility] Hospitalerum ImmunofixationSee comment.[facility]wood HospitalComment on above: Immunofixation shows IgG monoclonal protein with lambda light chain specificity.Protein Auto test strip (U) [Mass/Vol]Ordered By: Jair Gabriel on 44-95-9017Ncuribk (U) [Mass/Vol]NegativeNegativeParkwood HospitalRandom cortisol measurementOrdered By: Luke Moran on 21-53-7317Ngiwpksm [Mass/Vol]5.8 ug/dLParkwood HospitalComment on above:Reference range: AM 6 - 24 ug/dl PM <10 ug/dlSerum hepatitis B virus surface antibody detectionOrdered By: Luke Moran on 85-49-1960EYU surface Ab Ql (S)Reactive.Parkwood HospitalComment on above:Non Reactive: Inconsistent with immunity, less than 10 mIU/mL Reactive: Consistent with immunity, greater than 9.9 mIU/mL --- 04/04/22735 --- Hep B Cyndee Ab previously reported as: Non Reactive Non Reactive: Inconsistent with immunity, less than 10 mIU/mL Reactive: Consistent with immunity, greater than 9.9 mIU/mLSerum or plasma hepatitis C virus antibody signal/cutoff ratio by immunoassay (relatiOrdered By: Luke Moran on 95-22-9746AMT Ab Signal/Cutoff IA [Rel units/Vol]0.1 s/co ratio0.0-0.9Parkwood HospitalComment on above:--- 04/04/22735 --- Hep C Ab previously reported as: <0.1 s/co ratio Specific gravity Auto test strip (U) [Rel density]Ordered By: Jair Gabriel on 99-01-7642Ekmofqql gravity (U) [Rel density]1.0351.001-1.030[facility] Hospitalquamous epithelial cells detection in urine sediment by light microscopyOrdered By: Jair Gabriel on 93-04-4213Xoqurmzgqt cells.squamous LM Ql (Urine sed)None seen [HPF]0-2FBarberton Citizens Hospital DL <= 0.005 mIU/L QnOrdered By: Luke Moran on 58-12-1142EHS Qn22.19 m[IU]/L0.45-5.33 Parkwood HospitalUrine bacteria detection by automated method Ordered By: Jair Gabriel on 13-93-3726Siwdlkse Auto Ql (U)None seenNone Seen [facility]wood HospitalUrine clarity by refractometry automatedOrdered By: Jair Gabriel on 64-79-7847Xitnayw Refractometry automated (U)ClearClear [facility]wood HospitalUrine glucose measurement by automated test strip (mass/volume)Ordered By: Jair Gabriel on 09-07-1919Tmajygq Auto test strip (U) [Mass/Vol]100 mg/dLNormalParkwood HospitalUrine hemoglobin detection by automated test stripOrdered By: Jair Crowderzi on 50-52-7188Kxxfedhibk Auto test strip Ql (U)3+NegativeParkwood HospitalUrine leukocyte esterase detection by automated test stripOrdered By: Jair Crowderzi on 38-87-9361Owialrquj esterase Auto test strip Ql (U)NegativeNegativeParkwood HospitalUrobilinogen Auto test strip (U) [Mass/Vol]Ordered By: Jair Crowderzi on 35-09-9235Pvppdxngkmkg (U) [Mass/Vol]Normal mg/dLNormalParkwood HospitalpH Auto test strip (U)Ordered By: Jair Crowderzi on 62-75-1282mZ (U)5.0 [pH]5.0-9.0Park[facility] HospitalActivated partial thromboplastin time (aPTT) in platelet poor plasma by coagulation a Ordered By: Jair Gabriel on 77-08-8647bRIM Coag (PPP) [Time]24.8 s25.1-36.5 [facility] HospitalCOVID-19 Positive/NegativeOrdered By: Jairsydnee Gabriel on 92-32-4873PYTR-CoV-2 (COVID-19) N gene MANJIT+probe Ql (Resp)Negative NegativeParkwood HospitalComment on above:Testing for SARS-CoV-2 by RT-PCR This test was developed and its performance characteristics determined by [employer] ([employer]) and validated at the [facility]. This test has not been FDA [...] of time the declaration that circumstances exist ju stifying the authorization of the emergency use of in vitro diagnostic tests for detection of SARS-CoV-2 virus and/or diagnosis of COVID-19 infection under section 564(b)(1) of the Act, 21 U.S.C. 360bbb-3(b)(1), unless the authorization is terminated or revoked sooner.COVID-19 SOFIAOrdered By: Jair Gabriel on 62-55-1330OIID-CoV+SARS-CoV-2 (COVID-19) Ag IA.rapid Ql (Resp)NegativeNegative Park[facility] HospitalComment on above:This is a duplicate Cristal SARS Antigen (GONZALO) result to be used for statistical tracking purpose only. Laboratory - Chemistry and Chemistry - challengeOrdered By: Jair Gabriel on 76-04-5487Zhofcrycqya peptide B (Bld) [Mass/Vol]55.0 pg/mL5-100[facility] HospitalLaboratory - CoagulationOrdered By: Jair Gabriel on 29-21-6977VN Coag (PPP) [Time]11.9 s9.0-12.9[facility] HospitalNo Panel InformationOrdered By: Luke Moran on 99-98-4633R-Dimer Quantitative (PE/DVT)2825 ng/mL0-243Parkwood HospitalComment on above:The reference range for D-dimer is <243 ng/mL [...] increased in hospitalized patients due to co-morbid conditions.No Panel InformationOrdered By: Jair Gabriel on 04-02-2022 SARS Antigen (LFIA)Park[facility] HospitalPlatelet poor plasma international normalized ratio (INR) by coagulation assay (relatOrdered By: Jair Gabriel on 35-87-8654IXC Coag (PPP) [Relative time]1.1 {INR}Parkwood HospitalComment on above:INR Therapeutic Range A) Pre- and Peroperative OAT started two weeks before surgery. NOT HIP SURGERY: 1.5 - 2.5 HIP SURGERY: 2 - 3 B) Primary and secondary prevention of venous THROMBOSIS: 2 - 3 C) Active venous thrombosis, pulmonary embolism and prevention of recurrent venous thrombosis: 2 - 3 D) Prevention of arterial thromboembolism including patients with mechanical heart valves: 3 - 4.5Troponin I.cardiac [Mass/volume] in Serum or Plasma by High sensitivity methodOrdered By: Jair Gabriel on 23-23-4847Ofnpddbw I.cardiac High sensitivity method [Mass/Vol]26 pg/mL 0-20Park[facility] HospitalAlbumin [Mass/volume] in Serum or Plasma Ordered By: Sarah Osuna on 14-23-2046Gwbfknz [Mass/Vol]1.9 g/dL3.2-5.5FOhioHealth Doctors HospitalCreatinine and Glomerular filtration rate.predicted panel (S/P/Bld)Ordered By: Sarah Osuna on 62-47-9949Omujgmqpte [Mass/Vol]1.27 mg/dL0.64-1.27[facility] HospitalEstimated glomerular filtration rate (GFR) non- AmericanOrdered By: Sarah Osuna on 27-38-8378ALJ/1.73 sq M.predicted among non-blacks MDRD (S/P/Bld) [Vol rate/Area]57 mL/MinParkwood HospitalGlucose Glucometer (BldC) [Mass/Vol]Ordered By: Xin Phan on 92-90-2290Ngxqpqk [Mass/Vol]377 mg/dLParkwood Hospital Comment on above:Random Glucose Reference Range is dependent on time and content of last meal. Glucose of more than 200 mg/dL in a nonstressed, ambulatory subject supports the diagnosis of Diabetes Mellitus.No Panel InformationOrdered By: Sarah Osuna on 23-10-5315Zwqcomugq GFR ()> 60 mL/Min Park[facility] HospitalComment on above:GFR estimated reference range: According to KDOQI guidelines, <60 ml/min/1.73m2 is sufficient todiagnose a patient with chronic kidney disease.Pharmacy Creatinine Clearance (Chem90.76 [facility] Hospitalerum or plasma calcium measurement (mass/volume)Ordered By: Sarah Osuna on 84-50-3483Yzheqyd [Mass/Vol]8.4 mg/dL 8.2-10.2FProvidence Hospitalerum or plasma chloride measurement (moles/volume)Ordered By: Sarah Osuna on 05-97-9396Utcjjlep [Moles/Vol]99 mmol/M28-684GongqkonoElyria Memorial Hospitalerum or plasma glucose measurement (mass/volume)Ordered By: Sarah Osuna on 07-98-2464Mepaehg [Mass/Vol]265 mg/dL 70-100Park[facility] HospitalComment on above:Delta: 480 on 03/15/22-1040 ADA recommended reference range Random Glucose Reference Range is dependent on time and content of last meal. Glucose of more than 200 mg/dL in a nonstressed, ambulatory subject supports the diagnosis of Diabetes Mellitus.Serum or plasma potassium measurement (moles/volume)Ordered By: Xni Phan on 55-66-9177Upcbdiifg [Moles/Vol]4.0 mmol/L3.5-5.1FProvidence Hospitalerum or plasma sodium measurement (moles/volume)Ordered By: Sarah Osuna on 83-07-2852Ezzgkk [Moles/Vol]132 mmol/L859-867PehqsrkyeElyria Memorial Hospitalerum or plasma total carbon dioxide measurement (moles/volume)Ordered By: Sarah Osuna on 75-30-9156LE4 [Moles/Vol]25.4 mmol/L22.0-30.0[facility] Hospitalerum or plasma urea nitrogen measurement (mass/volume)Ordered By: Sarah Osuna on 03-16-2022 Urea nitrogen [Mass/Vol]24 mg/dL9-23[facility] Hospitalerum phospholipid phosphorus measurement (mass/volume)Ordered By: Xin Phan on 97-47-8328Xtmmmiardjxb phosphorus (S) [Mass/Vol]2.0 mg/dL2.5-4.6FOhioHealth Doctors HospitalNo Panel InformationOrdered By: Xin Phan on 78-57-0514Zohcmdk Glucose CommentSee commentParkwood Hospital Comment on above:Glu2: WILL NOTIFY DR/RNBedside Glucose #2 CommentCleaned meter [facility] HospitalAutomated erythrocytes count in urine sediment (number/area)Ordered By: Sarah Osuna on 95-37-8690OAK Auto (Urine sed) [#/Area] 0-1 [HPF]0-4FOhioHealth Doctors HospitalAutomated leukocytes count in urine sediment (number/area)Ordered By: Sarah Osuna on 60-12-4008TNA Auto (Urine sed) [#/Area]0-1 [HPF]0-4FOhioHealth Doctors HospitalBasophils Auto (Bld) [#/Vol]Ordered By: Leah Huang on 29-21-9582Dzyslrevt (Bld) [#/Vol]0.0 10*3/uL 0.0-0.2FOhioHealth Doctors HospitalBasophils/100 WBC Auto (Bld)Ordered By: Leah Huang on 77-19-9681Ometybtxa/100 WBC (Bld)0.2 %.Park[facility] HospitalBilirubin Auto test strip Ql (U)Ordered By: Sarah Osuna on 03-14-2022 Bilirubin Ql (U)NegativeNegativeParkwood HospitalBlood hemoglobin measurement (mass/volume)Ordered By: Leah Huang on 03-14-2022 Hemoglobin (Bld) [Mass/Vol]11.6 g/dL13.0-17.0[facility] Blood leukocytes automated count (number/volume)Ordered By: Leah Huang on 41-35-7123QRF (Bld) [#/Vol]6.0 10*3/uL4.5-11.0[facility] Creatinine [Mass/volume] in UrineOrdered By: Sarah Osuna on 03-14-2022 Creatinine (U) [Mass/Vol]76.9 mg/dLParkwood HospitalComment on above:No reference range establishedEosinophils Auto (Bld) [#/Vol]Ordered By: Leah Huang on 30-25-9778Ueiwqdvghtw (Bld) [#/Vol]0.1 10*3/uL0.0-0.45Park[facility] HospitalEosinophils/100 WBC Auto (Bld)Ordered By: Leah Huang on 19-85-4493Ngmedgdtqxp/100 WBC (Bld)1.4 %.[facility] Erythrocyte distribution width Auto (RBC) [Ratio]Ordered By: Leah Huang on 33-96-3998Dqmsakvsatt distribution width (RBC) [Ratio]15.8 %12.0-14.8Parkwood HospitalGlobulin Calc (S) [Mass/Vol]Ordered By: Leah Huang on 32-43-3724Apbcdbai (S) [Mass/Vol]3.8 g/dLParkwood Hospital Glucose mean value [Mass/volume] in Blood Estimated from glycated hemoglobin Ordered By: Leah Huang on 38-90-5182Sgvukmv glucose Estimated from glycated hemoglobin (Bld) [Mass/Vol]329 mg/dLParkwood HospitalHematocrit Auto (Bld) [Volume fraction]Ordered By: Leah Huang on 65-19-2239Gmkunknwba (Bld) [Volume fraction]35.1 %38.8-50.0[facility] Hemoglobin A1c percentageOrdered By: Leah Huang on 71-50-4578XtM8t (Bld) [Mass fraction]13.1 %4.3-5.6FOhioHealth Doctors HospitalComment on above: Increased risk for diabetes: 5.7 - 6.4 diabetes: >6.4 glycemic control for adults with diabetes: <7.0Ketones Auto test strip (U) [Mass/Vol]Ordered By: Sarah Osuna on 48-52-3962Ekcdesj (U) [Mass/Vol]Negative NegativeParkwood HospitalLaboratory - Hematology and Cell counts Ordered By: Leah Huang on 17-61-2871Nsodqyczh RBC/100 WBC (Bld) [Ratio]0.1 % 0-0.5FOhioHealth Doctors HospitalLaboratory - UrinalysisOrdered By: Sarah Osuna on 09-59-3509Mlawaia casts LM Ql (Urine sed)0-8 [LPF]0-8[facility] HospitalLymphocytes Auto (Bld) [#/Vol]Ordered By: Leah Huang on 03-09-4266Okimyhzlokb (Bld) [#/Vol]1.4 10*3/uL1.00-4.8[facility] HospitalLymphocytes/100 WBC Auto (Bld)Ordered By: Leah Huang on 03-14-2022 Lymphocytes/100 WBC (Bld)22.7 %.[facility] Auto (RBC) [Entitic mass]Ordered By: Leah Huang on 50-00-5204HPE (RBC) [Entitic mass]29.9 pg27.5-35.2FOhioHealth Doctors HospitalMCHC Auto (RBC) [Mass/Vol]Ordered By: Leah Huang on 54-94-5816FKQY (RBC) [Mass/Vol]33.0 g/dL32.5-35.6FOhioHealth Doctors HospitalMCV Auto (RBC) [Entitic vol]Ordered By: Leah Huang on 00-66-5542ZEU (RBC) [Entitic vol]90.4 fL83.5-101Park[facility] HospitalMonocytes Auto (Bld) [#/Vol]Ordered By: Leah Huang on 05-04-1047Bwwwdfuxb (Bld) [#/Vol]0.5 10*3/uL0.0-0.8Park[facility] HospitalMonocytes/100 WBC Auto (Bld)Ordered By: Leah Huang on 26-71-9609Jysgxmbjj/100 WBC (Bld)9.0 %. [facility]wood HospitalNeutrophils Auto (Bld) [#/Vol]Ordered By: Leah Huang on 31-70-8782Jpxorfigudc (Bld) [#/Vol]4.0 10*3/uL1.8-7.7FOhioHealth Doctors HospitalNeutrophils/100 WBC Auto (Bld)Ordered By: Leah Huang on 03-29-8812Gnettnfklsd/100 WBC (Bld)66.7 %.[facility] Platelet mean volume Auto (Bld) [Entitic vol]Ordered By: Leah Huang on 82-32-8504Jvncfses mean volume (Bld) [Entitic vol]8.9 fL6.6-10.1FOhioHealth Doctors HospitalPlatelets Auto (Bld) [#/Vol]Ordered By: Leah Huang on 17-88-3903Pmtcfkgqd (Bld) [#/Vol]143 10*3/aI043-641IyuctoyavParkwood HospitalProtein Auto test strip (U) [Mass/Vol]Ordered By: Sarah Osuna on 62-74-7771Jiuspwq (U) [Mass/Vol]NegativeNegativeParkwood HospitalProtein [Mass/volume] in Serum or PlasmaOrdered By: Leah Huang on 04-57-5398Diysdku [Mass/Vol]5.8 g/dL6.1-7.9[facility] Protein [Mass/volume] in UrineOrdered By: Sraah Osuna on 65-86-8682Eyhzetj (U) [Mass/Vol]13 mg/dL0-9Parkwood HospitalRBC Auto (Bld) [#/Vol] Ordered By: Leah Huang on 40-14-3319GUZ (Bld) [#/Vol]3.88 10*6/uL3.90-5.60 [facility] Hospitalerum or plasma alanine aminotransferase measurement without P-5'-P (enzymatic activiOrdered By: Leah Huang on 44-11-4452ZXL No additional P-5'-P [Catalytic activity/Vol]35 U/L13-52OcbhneaucElyria Memorial Hospitalerum or plasma albumin/globulin mass ratioOrdered By: Leah Huang on 89-18-6054Ljikvno/Globulin [Mass ratio]0.5 {ratio}[facility] Hospitalerum or plasma alkaline phosphatase measurement (enzymatic activity/volume)Ordered By: Leah Huang on 31-47-6695ZXR [Catalytic activity/Vol]120 U/R78-56OyjjfkjltElyria Memorial Hospitalerum or plasma aspartate aminotransferase measurement (enzymatic activity/volume)Ordered By: Leah Huang on 30-11-2458ECC [Catalytic activity/Vol]36 U/V19-59TuycsqbniElyria Memorial Hospitalerum or plasma total bilirubin measurement (mass/volume) Ordered By: Leah Huang on 30-61-4700Ieewfeutb [Mass/Vol]1.0 mg/dL0.3-1.2 [facility] Hospitalquamous epithelial cells detection in urine sediment by light microscopyOrdered By: Sarah Osuna on 95-06-6504Zhfgavcntg cells.squamous LM Ql (Urine sed)None seen [HPF]0-2FOhioHealth Doctors HospitalUrea nitrogen [Mass/volume] in UrineOrdered By: Leah Huang on 03-14-2022 Urea nitrogen (U) [Mass/Vol]454 mg/dLNot Estab.[facility] Comment on above:Performed at: - [facility] [id number] [employer] S[employer] Applicator: Genaro Becerril PhD, Phone: [phone] appearanceOrdered By: Sarah Osuna on 17-86-9163Ayxziablwo (U)ClearClearFOhioHealth Doctors HospitalUrine bacteria detection by automated methodOrdered By: Sarah Osuna on 68-54-8013Vhdiibxv Auto Ql (U)None seenNone SeenParkwood HospitalUrine colorOrdered By: Sarah Osuna on 52-75-9549Ynjnl (U)YellowYellow [facility] HospitalUrine glucose measurement by automated test strip (mass/volume)Ordered By: Sarah Osuna on 88-32-7294Wpeicgu Auto test strip (U) [Mass/Vol]>=1000 mg/dLHenry County HospitalUrine hemoglobin detection by automated test stripOrdered By: Sarah Osuna on 92-59-5910Tbquufaiwt Auto test strip Ql (U)2+NegativeParkwood HospitalUrine leukocyte esterase detection by automated test stripOrdered By: Sarah Osuna on 08-45-0699Pvtedxigx esterase Auto test strip Ql (U)NegativeNegative [facility] HospitalUrine nitrite detection by automated test strip Ordered By: Sarah Osuna on 38-65-8152Kvhjxvt Auto test strip Ql (U)Negative NegativeParkwood HospitalUrine protein/creatinine ratioOrdered By: Sarah Osuna on 69-52-9905Fvmrssv/Creatinine (U) [Ratio]169 mg/g{Cre}0-200 [facility] HospitalUrine sodium measurement (moles/volume)Ordered By: Leah Huang on 36-95-8638Bzjsso (U) [Moles/Vol]20 mmol/LFOhioHealth Doctors HospitalComment on above:No reference range establishedUrobilinogen Auto test strip (U) [Mass/Vol]Ordered By: Sarah Osuna on 37-47-6381Wbqebicjabru (U) [Mass/Vol]Normal mg/dLHenry County HospitalYeast detection in urine sediment by light microscopyOrdered By: Sarah Osuna on 29-84-7775Qxuvt LM Ql (Urine sed)Budding yeast [HPF]None SeenParkwood Hospital Comment on above:1+ BUDDING YEASTpH Auto test strip (U)Ordered By: Sarah Osuna on 49-40-3078zB (U)1.020 [pH]1.001-1.030Parkwood HospitalpH (U) 5.5 [pH]5.0-9.0Parkwood HospitalPOINT OF CARE GLUCOSEon 91-95-7135Htdcnqv [Mass/Vol]161 mg/dLCritically hwir83-122DirMount St. Mary Hospital Comment on above:Performed By: #### TSH, BMP #### [facility] [address] [place] [address] Dr. Ladan DiehlPOINT CARE GLUCOSEon 67-41-1251Qvbgaiw [Mass/Vol]358 mg/dL Critically wpue94-091IglMount St. Mary HospitalComment on above:Performed By: #### A1C #### [facility] [address] [address] [address] Ladan DiehlGlucose [Mass/Vol]279 mg/dLCritically unog32-937IlmMount St. Mary HospitalComment on above:Performed By: #### A1C #### [facility] [address] [place] [address] Dr. Ladan DiehlGlucose [Mass/Vol]247 mg/dLCritically qthb60-322EuyMount St. Mary HospitalComment on above:Performed By: #### TSH, BMP #### [facility] [address] [address] [address] Ladan DiehlGlucose [Mass/Vol]357 mg/dLCritically faon28-098HfrMount St. Mary HospitalComment on above:Performed By: #### A1C #### [facility] [address] [place] [address] Dr. Ladan DiehlPROF CHEM 8 (BAS METB)on 18-02-1209Qdzfj gap [Moles/Vol]11.1 mmol/LNormalMount St. Mary HospitalComment on above:Performed By: #### TSH, BMP #### [facility] [address] [address] [address] Ladan DiehlCalcium [Mass/Vol]8.8 mg/dLNormal8.5-10.1[facility] Comment on above:Performed By: #### TSH, BMP #### [facility] [address] [address] [address] Ladan DiehlChloride [Moles/Vol]99 mmol/WEviaxv82-557Kvh [facility] Comment on above:Performed By: #### TSH, BMP #### [facility] [address] [place] [address] Dr. Ladan DiehlCO2 [Moles/Vol]27.2 mmol/KGnctas45.0-32.0[facility] Comment on above:Performed By: #### TSH, BMP #### [facility] [address] [place] [address] Dr. Ladan DiehlCreatinine [Mass/Vol]1.59 mg/dLCritically high0.70-1.30The [facility]itan HospitalComment on above:Performed By: #### TSH, BMP #### [facility] [address] [place] [address] Dr. Pickering ChangEGFR-AF AFSUUSSF20 mL/min/1.31o6Okjdeklnci low>=60The [facility]itan HospitalComment on above:Performed By: #### TSH, BMP #### [facility] [address] [place] [address] Dr. Ladan JosephGFR-NON AF ULYHLWUL61 mL/min/1.62x4Fgqwblhjsn low>=60The [facility]itan HospitalComment on above:Performed By: #### TSH, BMP #### [facility] [address] [place] [address] Dr. Ladan DiehlGlucose [Mass/Vol]284 mg/dLCritically qngq34-380Dfl [facility] HospitalComment on above:Performed By: #### TSH, BMP #### [facility] [address] [place] [address] Dr. Ladan DiehlPotassium [Moles/Vol]4.2 mmol/LNormal3.5-5.1[facility] Comment on above:Performed By: #### TSH, BMP #### [facility] [address] [address] [address] Ladan DiehlSodium [Moles/Vol]133 mmol/LCritically mlt821-320Zgo [facility] HospitalComment on above:Performed By: #### TSH, BMP #### [facility] [address] [address] [address] Ladan DiehlUrea nitrogen [Mass/Vol]22.0 mg/dLCritically high7.0-18.0The [facility]itan HospitalComment on above:Performed By: #### TSH, BMP #### [facility] [address] [place] [address] Dr. Ladan Wilson nitrogen/Creatinine [Mass ratio]13.8 mg/mgNormalThe [facility]aritan HospitalCommclaren greater [facility] on above:Performed By: #### TSH, BMP #### [facility] [address] [place] [address] Dr. Ladan Dominguez, HIGH SENSITIVITYon 63-01-2363YABZJN43.7 pg/mLNormal 4.0-76.1The [facility] on above:Result Comment: CUT-OFF POINTS HAVE BEEN ESTABLISHED BASED ON THE FOURTH UNIVERSAL DEFINITIONS OF MYOCARDIAL INFARCTION. THE UPPER REFERENCE LIMIT (URL) OF TROPONIN, DEFINED THE 99TH PERCENTILE OF cTnI DISTRIBUTION IN A REFERENCE POPULATION, HAS BEEN CONFIRMED THE DECISION THRESHOLD FOR CA DIAGNOSIS.Performed By: #### HSTROPN #### [facility] [address] [place] [address] Dr. Ladan Quiles 30-33-2951RCF6.381 uIU/mLNormal0.358-3.740The [facility] on above:Performed By: #### TSH, BMP #### [facility] [address] [place] [address] Dr. Ladan Carpenter LIT DOP LEG BILon 23-21-3612HO LIT DOP LEG BILEXAMINATION: US LIT DOP LEG NICKO HISTORY: Swelling [...] Electronically authenticated by: CAROL YIP Date: 2022-01-24 09:[address] [place], [place] [address]BNPon 75-27-5324Vfocwmtbxdg peptide B (Bld) [Mass/Vol]262.0 pg/mLNormal<=900.0The [facility]itan HospitalComment on above:Performed By: #### A1C #### [facility] [address] [place] [address] Dr. Ladan Barragan AUTO DIFFon 76-11-3944WQYJ #0.1 103/ulNormal0.0-0.1The [facility]itan HospitalComment on above:Performed By: #### TSH, BMP #### [facility] [address] [place] [address] Dr. Ladan Freedmansophils/100 WBC (Bld)0.8 %Normal0.2-2.0[facility] Comment on above:Performed By: #### TSH, BMP #### [facility] [address] [place] [address] Dr. Ladan Schmidt #0.3 103/ulNormal0.0-0.7The [facility]itan HospitalComment on above: Performed By: #### TSH, BMP #### [facility] [address] [place] [address] Dr. Ladan Josephosinophils/100 WBC (Bld)4.4 %Normal0.9-7.0[facility] Comment on above:Performed By: #### TSH, BMP #### [facility] [address] [place] [address] Dr. Ladan Josephrythrocyte distribution width (RBC) [Ratio]14.0 %Wkdbfc52.0-15.0 The [facility]aritan HospitalComment on above:Performed By: #### TSH, BMP #### [facility] [address] [place] [address] Dr. Yilan ChangHematocrit (Bld) [Volume fraction]38.3 %Critically low42.0-54.0 The [facility]aritan HospitalComment on above:Performed By: #### TSH, BMP #### [facility] [address] [place] [address] Dr. Ladan DiehlHemoglobin (Bld) [Mass/Vol]12.0 g/dLCritically low14.0-18.0The [facility]itan HospitalComment on above:Performed By: #### TSH, BMP #### [facility] [address] [place] [address] Dr. Ladan Partida #0.03 10e3/ulNormal0.00-0.03The [facility]itan HospitalComment on above:Performed By: #### TSH, BMP #### [facility] [address] [place] [address] Dr. Ladan Partida %0.5 %Normal0.0-0.5The [facility] HospitalComment on above: Performed By: #### TSH, BMP #### [facility] [address] [place] [address] Dr. Ladan Moser #1.2 103/ulNormal1.2-3.8The [facility] HospitalComment on above:Performed By: #### TSH, BMP #### [facility] [address] [place] [address] Dr. Ladan Rogershocytes/100 WBC (Bld)20.2 %Critically low20.5-60.0The [facility] HospitalCommclaren [facility] on above:Performed By: #### TSH, BMP #### [facility] [address] [place] [address] Dr. Ladan DiehlMANUAL DIFF REQNONormalThe [facility]itan HospitalComment on above: Performed By: #### TSH, BMP #### [facility] [address] [place] [address] Dr. Ladan Castillo (RBC) [Entitic mass]29.6 nePeicxn69.9-34.0The [facility] HospitalComment on above:Performed By: #### TSH, BMP #### [facility] [address] [address] [address] Ladan GibbsHC (RBC) [Mass/Vol]31.3 g/vBTkvstd88.9-35.2The [facility] HospitalComment on above:Performed By: #### TSH, BMP #### [facility] [address] [place] [address] Dr. Ladan Gibbs (RBC) [Entitic vol]94.6 fLCritically high80.0-94.0The [facility] HospitalComment on above:Performed By: #### TSH, BMP #### [facility] [address] [place] [address] Dr. Ladan Barone #0.7 103/ulNormal0.3-0.8The [facility] HospitalComment on above:Performed By: #### TSH, BMP #### [facility] [address] [place] [address] Dr. Ladan Stanleyocytes/100 WBC (Bld)10.7 %Normal1.7-12.0[facility] Comment on above:Performed By: #### TSH, BMP #### [facility] [address] [place] [address] Dr. Ladan Shrestha #3.9 103/ulNormal1.4-6.5The [facility] HospitalComment on above:Performed By: #### TSH, BMP #### [facility] [address] [place] [address] Dr. Ladan Humphreyutrophils/100 WBC (Bld)63.4 %Dajbcg44.0-75.0The [facility] HospitalComment on above:Performed By: #### TSH, BMP #### [facility] [address] [place] [address] Dr. Ladan Tejadalet mean volume (Bld) [Entitic vol]10.0 fLNormal9.5-13.5The [facility] HospitalComment on above:Performed By: #### TSH, BMP #### [facility] [address] [place] [address] Dr. Ladan DiehlPLT171 103/xqYoylwb409-453Kfj [facility] HospitalComment on above: Performed By: #### TSH, BMP #### [facility] [address], [place] [address] Dr. Ladan DiehlRBC4.05 106/ulCritically low4.70-6.10The [facility] HospitalCommclaren [facility] on above:Performed By: #### TSH, BMP #### [facility] [address], [place] [address] Dr. Pickering ChangWBC6.1 103/ulNormal4.0-11.0The [facility] HospitalCommclaren [facility] on above: Performed By: #### TSH, BMP #### [facility] [address] [address] [address] Ladan Harrison CHEST WO W CONon [id number] CHEST WO W CONEXAM: CTA chest. CLINICAL SYMPTOMS: Male, 66 years, [...] Electronically authenticated by: XIN BUI Date: 2022-01-23 19:35NoCherrington HospitalCovid-19 PCR (CVDTB)on [id number]-CoV-2 (COVID-19) RNA MANJIT+probe Ql (Unsp spec)Not detectedNormalNOT DETECTEDThe [facility] Comment on above:Result Comment: When diagnostic testing is negative, the [...] for this test is supported by the [place] of Health and Human Service's declaration that circumstances exist to justify the emergency use of in vitro diagnostics for the detection and/or diagnosis of the virus that causes COVID-19. This EUA will remain in effect for the duration of the COVID-19 declaration justifying emergency of IVDs, unless it is terminated or revoked by the FDA (after which the test may no longer be used).Performed By: #### A1C #### [facility] [address] [place] [address] Dr. Ladan DiehlLACTATE/LACTIC ACIDon [id number] [Moles/Vol]1.6 mmol/L Normal0.4-1.9The [facility] HospitalComment on above:Performed By: #### LACT #### [facility] [address] [place] [address] Dr. Ladan DiehlPROF 14(COMP METB)on 18-47-5288Vhgrrdd [Mass/Vol]2.7 g/dL Critically low3.4-5.0The [facility] HospitalComment on above:Performed By: #### A1C #### [facility] [address] [place] [address] Dr. Ladan DiehlAlbumin/Globulin [Mass ratio]0.5 {ratio}NormalThe [facility] on above:Performed By: #### A1C #### [facility] [address] [place] [address] Dr. Ladan DiehlALP [Catalytic activity/Vol]120 U/LCritically bzye64-156Kzu Nery HospitalComment on above:Performed By: #### A1C #### [facility] [address] [address] [address] Ladan Gregg [Catalytic activity/Vol]23 U/YTjgety63-16Ehf [facility] HospitalComment on above:Performed By: #### A1C #### [facility] [address] [address] [address] Ladan DiehlAnion gap [Moles/Vol]10.3 mmol/LNormalThe [facility] Comment on above:Performed By: #### A1C #### [facility] [address] [address] [address] Ladan DiehlAST [Catalytic activity/Vol]29 U/BPsuqrp67-49Jxw [facility] HospitalComment on above:Performed By: #### A1C #### [facility] [address] [address] [address] Ladan DiehlBilirubin [Mass/Vol]1.0 mg/dLNormal0.2-1.0The [facility] Comment on above:Performed By: #### A1C #### [facility] [address] [address] [address] Ladan DiehlCalcium [Mass/Vol]8.8 mg/dLNormal8.5-10.1The [facility] Comment on above:Performed By: #### A1C #### [facility] [address] [address] [address] Ladan DiehlChloride [Moles/Vol]101 mmol/YUxtvgp00-317Sso [facility] Comment on above:Performed By: #### A1C #### [facility] [address] [address] [address] Ladan DiehlCO2 [Moles/Vol]30.8 mmol/XTjwkws24.0-32.0The [facility] Comment on above:Performed By: #### A1C #### [facility] [address] [address] [address] Ladan DiehlCreatinine [Mass/Vol]1.40 mg/dLCritically high0.70-1.30The Nery HospitalComment on above:Performed By: #### A1C #### [facility] [address] [address] [address] Ladan JosephGFR-AF NORTH KOREAN>60Normal>=60The [facility] HospitalComment on above:Performed By: #### A1C #### [facility] [address] [address] [address] Ladan JosephGFR-NON AF VZZHMECZ94 mL/min/1.66w8Pqbbvqsvgk low>=60The [facility] HospitalComment on above:Performed By: #### A1C #### [facility] [address] [address] [address] Ladan DiehlGlobulin (S) [Mass/Vol]5.3 g/dLNormalThe [facility] HospitalComment on above:Performed By: #### A1C #### [facility] [address] [address] [address] Ladan DiehlGlucose [Mass/Vol]125 mg/dLCritically wgnj80-719Zzc [facility] HospitalComment on above:Performed By: #### A1C #### [facility] [address] [address] [address] Ladan DiehlPotassium [Moles/Vol]4.1 mmol/LNormal3.5-5.1The [facility] Comment on above:Performed By: #### A1C #### [facility] [address] [address] [address] Ladan DiehlProtein [Mass/Vol]8.0 g/dLNormal6.4-8.2The [facility] Comment on above:Performed By: #### A1C #### [facility] [address] [address] [address] Ladan DiehlSodium [Moles/Vol]138 mmol/BEuebtu070-399Etq [facility] Comment on above:Performed By: #### A1C #### [facility] [address] [address] [address] Ladan DiehlUrea nitrogen [Mass/Vol]20.0 mg/dLCritically high7.0-18.0The [facility] HospitalComment on above:Performed By: #### A1C #### [facility] [address] [place] [address] Dr. Ladan Wilson nitrogen/Creatinine [Mass ratio]14.3 mg/mgNoCherrington HospitalComment on above:Performed By: #### A1C #### [facility] [address] [place] [address] Dr. Ladan DiehlPROTIMEon [id number] Coag (PPP) [Relative time]1.02 {INR} NormalThe [facility]itan HospitalComment on above:Performed By: #### PT, PTT #### [facility] [address] [place] [address] Dr. Ladan Pires GUIDELINESSEE BELOWMercy Health St. Rita's Medical CenterComment on above:Result Comment: DESIRED INR: 2.0 - 3.0 CONDITIONS NOT LISTED BELOW 2.5 - 3.5 FOR PROSTHETIC HEART VALVE REPLACEMENT 2.5 - 3.5 RECURRENT THROMBOSIS Performed By: #### PT, PTT #### [facility] [address] [place] [address] Dr. Ladan DiehlPT Coag (PPP) [Time]11.0 sNormal9.0-11.6The [facility] Comment on above:Performed By: #### PT, PTT #### [facility] [address] [place] [address] Dr. Ladan Correia 08-98-2410rXLU Coag (Bld) [Time]27.6 aOldaqw26.3-36.2The [facility] HospitalComment on above:Performed By: #### PT, PTT #### [facility] [address] [place] [address] Dr. Ladan Dominguez, HIGH SENSITIVITYon 08-05-9068ROYINA42.4 pg/mLNormal 4.0-76.1The [facility] on above:Result Comment: CUT-OFF POINTS HAVE BEEN ESTABLISHED BASED ON THE FOURTH UNIVERSAL DEFINITIONS OF MYOCARDIAL INFARCTION. THE UPPER REFERENCE LIMIT (URL) OF TROPONIN, DEFINED THE 99TH PERCENTILE OF cTnI DISTRIBUTION IN A REFERENCE POPULATION, HAS BEEN CONFIRMED THE DECISION THRESHOLD FOR CA DIAGNOSIS.Performed By: #### A1C #### [facility] [address] [address] [address] Ladan DiehlCT ABD/PELV W CONon [id number] ABD/PELV W CONEXAMINATION: CT ABD/PELV W CON HISTORY:Fall with left [...] Electronically authenticated by: TANNER PEDRAZA Date: 2022-01-18 23:39NoCherrington HospitalXR CHEST 1 Von [id number] CHEST 1 VEXAM: Chest x-ray HISTORY: . COUGH . COMPARISON: None. TECHNIQUE: AP portable upright view of the chest FINDINGS: Film is underpenetrated. Heart and vascularity are unremarkable. Lungs are free of focal infiltrates. EKG leads overlie the chest. IMPRESSION: 1. Underpenetrated chest. 2. No acute heart or lung disease identified. Electronically authenticated by: ROSELIA RIVERA Date: 2022-01-18 22:16NoCherrington HospitalXR KNEE LT 4V or >on [id number] KNEE LT 4V or >EXAM: XR KNEE LT 4V or > HISTORY: Pain COMPARISON: None. TECHNIQUE: 4 views of the left knee FINDINGS: No acute fracture is seen. Joint alignment is normal. Joint spaces are preserved. Soft tissues are unremarkable. No significant joint effusion is seen. IMPRESSION: No acute fracture or malalignment. Electronically authenticated by: JENNIFER CASTILLO Date: 2022-01-18 23:06No[facility] AUTO DIFFon [id number] #0.1 103/ulNormal0.0-0.1The [facility] HospitalComment on above:Performed By: #### CBC #### [facility] [address] [address] [address] Ladan DiehlBasophils/100 WBC (Bld)0.8 %Normal0.2-2.0The [facility] Comment on above:Performed By: #### CBC #### [facility] [address] [address] [address] Ladan Schmidt #0.4 103/ulNormal0.0-0.7The [facility] HospitalComment on above: Performed By: #### CBC #### [facility] [address] [address] [address] Ladan Josephosinophils/100 WBC (Bld)4.3 %Normal0.9-7.0[facility] Comment on above:Performed By: #### CBC #### [facility] [address] [place] [address] Dr. Ladan Josephrythrocyte distribution width (RBC) [Ratio]14.4 %Ctzcoa13.0-15.0 The [facility] HospitalComment on above:Performed By: #### CBC #### [facility] [address] [place] [address] Dr. Ladan DiehlHematocrit (Bld) [Volume fraction]37.2 %Critically low42.0-54.0 The [facility] HospitalComment on above:Performed By: #### CBC #### [facility] [address] [place] [address] Dr. Ladan DiehlHemoglobin (Bld) [Mass/Vol]11.9 g/dLCritically low14.0-18.0The [facility] HospitalComment on above:Performed By: #### CBC #### [facility] [address] [address] [address] Ladan Partida #0.04 10e3/ulCritically high0.00-0.03The [facility] Comment on above:Performed By: #### CBC #### [facility] [address] [place] [address] Dr. Ladan Partida %0.5 %Normal0.0-0.5The [facility] HospitalComment on above: Performed By: #### CBC #### [facility] [address] [place] [address] Dr. Ladan Moser #2.2 103/ulNormal1.2-3.8The [facility] HospitalComment on above:Performed By: #### CBC #### [facility] [address] [place] [address] Dr. Ladan Rogershocytes/100 WBC (Bld)26.2 %Ahfuga92.5-60.0The [facility] HospitalComment on above:Performed By: #### CBC #### [facility] [address] [place] [address] Dr. Ladan BergerUAL DIFF REQNONormalThe [facility] HospitalComment on above: Performed By: #### CBC #### [facility] [address] [place] [address] Dr. Ladan Castillo (RBC) [Entitic mass]30.4 izXbofhv43.9-34.0The [facility] HospitalComment on above:Performed By: #### CBC #### [facility] [address] [place] [address] Dr. Ladan Gibbs (RBC) [Mass/Vol]32.0 g/jMMhdwne56.9-35.2The [facility] HospitalComment on above:Performed By: #### CBC #### [facility] [address] [place] [address] Dr. Ladan Gibbs (RBC) [Entitic vol]94.9 fLCritically high80.0-94.0The [facility] HospitalComment on above:Performed By: #### CBC #### [facility] [address] [address] [address] Ladan Barone #0.9 103/ulCritically high0.3-0.8The [facility] Comment on above:Performed By: #### CBC #### [facility] [address] [address] [address] Ladan Stanleyocytes/100 WBC (Bld)10.3 %Normal1.7-12.0[facility] Comment on above:Performed By: #### CBC #### [facility] [address] [place] [address] Dr. Ladan Shrestha #5.0 103/ulNormal1.4-6.5The [facility] HospitalComment on above:Performed By: #### CBC #### [facility] [address] [place] [address] Dr. Ladan Humphreyutrophils/100 WBC (Bld)57.9 %Klesww15.0-75.0The [facility] HospitalComment on above:Performed By: #### CBC #### [facility] [address] [place] [address] Dr. Ladan Tejadalet mean volume (Bld) [Entitic vol]9.9 fLNormal9.5-13.5The [facility] HospitalComment on above:Performed By: #### CBC #### [facility] [address] [place] [address] Dr. Ladan DiehlPLT180 103/cvUchvcm738-157Nfm [facility] HospitalComment on above: Performed By: #### CBC #### [facility] [address] [place] [address] Dr. aLdan DiehlRBC3.92 106/ulCritically low4.70-6.10The [facility] HospitalComment on above:Performed By: #### CBC #### [facility] [address] [place] [address] Dr. Ladan DiehlWBC8.6 103/ulNormal4.0-11.0The [facility] HospitalComment on above: Performed By: #### CBC #### [facility] [address] [place] [address] Dr. Ladan SinhaF 14(COMP METB)on 01-52-2280Jnoybfw [Mass/Vol]2.6 g/dL Critically low3.4-5.0The [facility] HospitalComment on above:Performed By: #### CMP #### [facility] [address] [place] [address] Dr. Ladan DiehlAlbumin/Globulin [Mass ratio]0.5 {ratio}NormalThe [facility] HospitalComment on above:Performed By: #### CMP #### [facility] [address] [place] [address] Dr. Ladan MontañoP [Catalytic activity/Vol]184 U/LCritically umod18-774Kja [facility] HospitalComment on above:Performed By: #### CMP #### [facility] [address] [place] [address] Dr. Ladan MontañoT [Catalytic activity/Vol]24 U/RNndmrn87-52Lye [facility] HospitalComment on above:Performed By: #### CMP #### [facility] [address] [place] [address] Dr. Ladan Sexton gap [Moles/Vol]10.1 mmol/LNormalThe [facility] Comment on above:Performed By: #### CMP #### [facility] [address] [place] [address] Dr. Ladan DiehlAST [Catalytic activity/Vol]22 U/YNamwvc14-69Xzw [facility] HospitalComment on above:Performed By: #### CMP #### [facility] [address] [place] [address] Dr. Ladan DiehlBilirubin [Mass/Vol]0.5 mg/dLNormal0.2-1.0[facility] Comment on above:Performed By: #### CMP #### [facility] [address] [place] [address] Dr. Ladan DiehlCalcium [Mass/Vol]8.6 mg/dLNormal8.5-10.1[facility] Comment on above:Performed By: #### CMP #### [facility] [address] [address] [address] Ladan DiehlChloride [Moles/Vol]101 mmol/GLlpugl30-767Slj [facility] Comment on above:Performed By: #### CMP #### [facility] [address] [address] [address] Ladan DiehlCO2 [Moles/Vol]30.9 mmol/DUxwouy87.0-32.0[facility] Comment on above:Performed By: #### CMP #### [facility] [address] [address] [address] Ladan DiehlCreatinine [Mass/Vol]1.72 mg/dLCritically high0.70-1.30The [facility] HospitalComment on above:Performed By: #### CMP #### [facility] [address] [address] [address] Pickering ChangEGFR-AF EBGCQWGJ30 mL/min/1.02t9Fywfuchjcq low>=60The [facility] HospitalComment on above:Performed By: #### CMP #### [facility] [address] [address] [address] Ladan JosephGFR-NON AF EGZKCYBD28 mL/min/1.23v9Rksiazrulo low>=60The [facility] HospitalComment on above:Performed By: #### CMP #### [facility] [address] [address] [address] Ladan DiehlGlobulin (S) [Mass/Vol]5.2 g/dLNormalThe [facility] HospitalComment on above:Performed By: #### CMP #### [facility] [address] [address] [address] Ladan DiehlGlucose [Mass/Vol]253 mg/dLCritically yvoz18-692Xze [facility] HospitalComment on above:Performed By: #### CMP #### [facility] [address] [address] [address] Ladan DiehlPotassium [Moles/Vol]4.0 mmol/LNormal3.5-5.1[facility] Comment on above:Performed By: #### CMP #### [facility] [address] [address] [address] Ladan DiehlProtein [Mass/Vol]7.8 g/dLNormal6.4-8.2The [facility] Comment on above:Performed By: #### CMP #### [facility] [address] [address] [address] Ladan DiehlSodium [Moles/Vol]138 mmol/MJwssla559-826Ieb [facility] Comment on above:Performed By: #### CMP #### [facility] [address] [address] [address] Ladan DiehlUrea nitrogen [Mass/Vol]30.0 mg/dLCritically high7.0-18.0The [facility] HospitalComment on above:Performed By: #### CMP #### [facility] [address] [address] [address] Ladan Wilson nitrogen/Creatinine [Mass ratio]17.4 mg/mgNormalThe [facility] HospitalComment on above:Performed By: #### CMP #### [facility] [address] [address] [address] Ladan Diehl Vital Signs Date TimeVital SignValuePerforming BqrwnuvsnDpllxocm02-71-0130 11:00-0400Body yvdmunwufcx69.3 [degF]Arline Lazar ROLL TABLE OPERATOR-C Work Phone: [phone]10-17-2025 11:00-0400 Diastolic blood xekrxxap45 mm[Hg]Arline Lazar ROLL TABLE OPERATOR-C Work Phone: [phone]10-17-2025 11:00-0400 Heart rate78 /Nicolás Lazar ROLL TABLE OPERATOR-C Work Phone: [phone])50403 [address]10-17-2025 11:00-0400 Respiratory rate18 /Nicolás Lazar ROLL TABLE OPERATOR-C Work Phone: [phone]10-17-2025 11:00-0400 SaO2% (BldA) [Mass fraction]97 %Arline Lazar ROLL TABLE OPERATOR-C Work Phone: [phone])[address]10-17-2025 11:00-0400 Systolic blood dxyffjqg641 mm[Hg]Arline Cady ROLL TABLE OPERATOR-C Work Phone: [phone])[address]10-17-2025 09:34-0400 Body jrkzci558.8 cmPamela Cady ROLL TABLE OPERATOR-C Work Phone: [phone])[address]10-13-2025 09:00-0400 Body bfaxlg839.6 kgPamela Cady ROLL TABLE OPERATOR-C Work Phone: [phone]10-06-2025 13:18-0400 Body epnqpcnlequ15.5 [degF]Arline Cady ROLL TABLE OPERATOR-C Work Phone: [phone] [place], [place] 105[address]10-06-2025 13:18-0400 Diastolic blood gitlrxau32 mm[Hg]Arline Cady ROLL TABLE OPERATOR-C Work Phone: [phone]10-06-2025 13:18-0400 Heart rate90 /minPamela Cady ROLL TABLE OPERATOR-C Work Phone: [phone] [place], [place] 1057710-06-2025 13:18-0400 Respiratory rate20 /minPamela Cady ROLL TABLE OPERATOR-C Work Phone: [phone] [place], [place] 1057710-06-2025 13:18-0400 SaO2% (BldA) [Mass fraction]96 %Arline Cady ROLL TABLE OPERATOR-C Work Phone: [phone]10-06-2025 13:18-0400 Systolic blood eywghoxs924 mm[Hg]Arline Cady ROLL TABLE OPERATOR-C Work Phone: [phone]10-06-2025 08:59-0400 Body .8 cmPamela Cady ROLL TABLE OPERATOR-C Work Phone: [phone]10-06-2025 08:59-0400 Body sndida512.14 kgPamela Cady ROLL TABLE OPERATOR-C Work Phone: [phone]07-31-2025 16:14-0400 Body huvdov037.8 cmSteven Rusher DPM Work Phone: [phone] [place], [place] [address]Ybixjtgvly01-16-2384 16:14-0400Body mass index (BMI) [Ratio]47.35 kg/j8Cpajcq Rusher DPM Work Phone: [phone]07-31-2025 16:14-0400Body mtywup787.69 kgSteven Rusher DPM Work Phone: [phone])[address]07-18-2025 13:05-0400Diastolic blood kteuvfeq81 mm[Hg]Arline Cady ROLL TABLE OPERATOR-C Work Phone: [phone] [place], [place] 6186307-18-2025 13:05-0400 Heart rate61 /minParhiannaa Cady ROLL TABLE OPERATOR-C Work Phone: [phone])[facility] [place], [place] 6186307-18-2025 13:05-0400 Respiratory rate16 /minParhiannaa Cady ROLL TABLE OPERATOR-C Work Phone: [phone] [place], [place] 1057707-18-2025 13:05-0400 SaO2% (BldA) [Mass fraction]95 %Arline Cady ROLL TABLE OPERATOR-C Work Phone: [phone] [place], [place] 1057707-18-2025 13:05-0400 Systolic blood wjvbrjyy617 mm[Hg]Arline Cady ROLL TABLE OPERATOR-C Work Phone: [phone] [place], [place] 1057707-18-2025 11:42-0400 Body isxosv149.8 cmPamela Cady ROLL TABLE OPERATOR-C Work Phone: [phone]07-18-2025 11:42-0400 Body xtjiny658.61 kgPamela Cady ROLL TABLE OPERATOR-C Work Phone: [phone]07-08-2025 13:00-0400 Body xyygnz628.8 cmSteven Rusher DPM Work Phone: [phone]07-08-2025 13:00-0400Body mass index (BMI) [Ratio]47.35 kg/a2Umcfrg Rusher DPM Work Phone: [phone]07-08-2025 13:00-0400Body rrzofd921.69 kgSteven Rusher DPM Work Phone: [phone] [place], [place] [address]Vxzawntvnz02-81-4947 11:010400Body jkfmse438.8 cmSteven Rusher DPM Work Phone: [phone] [place], [place] 679[address]06-11-2025 11:01-0400Body mass index (BMI) [Ratio]47.35 kg/f1Tcpvjz Rusher DPM Work Phone: [phone])[address]06-11-2025 11:010400Body aimlul622.69 kgSteven Rusher DPM Work Phone: [phone] [place], [place] [address]790105-09-2025 13:43-0400Body wnpixa636.72 cmPamela Cady ROLL TABLE OPERATOR-C Work Phone: [phone]05-09-2025 13:43-0400 Body uyqcur695.8 kgPamela Cady ROLL TABLE OPERATOR-C Work Phone: [phone])[address]05-09-2025 13:43-0400 Diastolic blood cesdizjw63 mm[Hg]Arline Cady ROLL TABLE OPERATOR-C Work Phone: [phone])[address]05-09-2025 13:43-0400 Heart rate70 /minPamela Cady ROLL TABLE OPERATOR-C Work Phone: [phone]05-09-2025 13:43-0400 Respiratory rate20 /minPamela Cady ROLL TABLE OPERATOR-C Work Phone: [phone]05-09-2025 13:43-0400 SaO2% (BldA) [Mass fraction]97 %Arline Cady ROLL TABLE OPERATOR-C Work Phone: [phone])[address]05-09-2025 13:43-0400 Systolic blood mm[Hg]Arline Cady ROLL TABLE OPERATOR-C Work Phone: [phone] [address]04-08-2025 11:24-0400 Diastolic blood wfywbkaf602 mm[Hg]Arline Cady ROLL TABLE OPERATOR-C Work Phone: [phone]04-08-2025 11:24-0400 Heart rate64 /minArline Cady ROLL TABLE OPERATOR-C Work Phone: [facility]04-08-2025 11:24-0400 Respiratory rate18 /minArline Cady ROLL TABLE OPERATOR-C Work Phone: [facility]04-08-2025 11:24-0400 SaO2% (BldA) [Mass fraction]95 %Arline Cady ROLL TABLE OPERATOR-C Work Phone: [facility]04-08-2025 11:24-0400 Systolic blood uwjgjqia927 mm[Hg]Arline Cady ROLL TABLE OPERATOR-C Work Phone: [facility]04-08-2025 11:18-0400 Body tteuft104.8 cmPtrudy Cady ROLL TABLE OPERATOR-C Work Phone: [facility]04-08-2025 11:18-0400 Body .68 kgParhiannaa Cady ROLL TABLE OPERATOR-C Work Phone: [facility]09-21-2022 06:00-0400 Diastolic blood mzsyqsmy72 mm[Hg]Et3 ZbgihsxvKjqlvEjiumu66-41-2795 06:00-0400 Heart rate89 /minEt3 MaegeyxgLrkujDzjhgu10-34-7807 06:00-0400Respiratory rate20 /minEt3 AlsyfwmdFponwXoxfge73-14-1168 06:00-1508ZqH0% (BldA) [Mass fraction]91 % Et3 ResourceMetroHealthComment on above:2 L NC at lvqdolye88-31-6963 06:00-0400 Systolic blood pujyiqei31 mm[Hg]Et3 OubmnzqnWycwxTwqvdr47-75-9111 15:01-0400Body hwftxscwulj44.3 [degF]MD Ayden Freeman Work Phone: [facility]09-02-2022 15:01-0400 Diastolic blood ycmcjdcq27 mm[Hg]MD Ayden Freeman Work Phone: [facility]09-02-2022 15:01-0400 Heart rate90 /minMD Ayden Freeman Work Phone: 1(419)547-[address] [place], [place] 7355409-02-2022 15:01-0400 Respiratory rate20 /minMD Ayden Freeman Work Phone: 1(186)54[address]09-02-2022 15:01-0400 SaO2% (BldA) [Mass fraction]92 %MD Ayden Freeman Work Phone: 1(852)25907 [address]09-02-2022 15:01-0400 Systolic blood ozweqfjx409 mm[Hg]MD Ayden Freeman Work Phone: 1(144)78507 [address]09-02-2022 10:48-0400 Body jwluva048.8 cmMD Ayden Freeman Work Phone: 1(592)[address]09-02-2022 10:48-0400 Body varfqm977.22 kgMD Ayden Freeman Work Phone: 1(385)[address] [place], [place] 5662108-30-2022 12:00-0400 Diastolic blood gspapxbt10 mm[Hg]MD Ayden Freeman Work Phone: 1(251)6[address]07 [address]08-30-2022 12:00-0400 Heart rate99 /minMD Ayden Freeman Work Phone: 1(019)00807 [address]08-30-2022 12:00-0400 Inhaled oxygen flow rate2 L/minMD Ayden Freeman Work Phone: 1(486)47207 [address]08-30-2022 12:00-0400 Respiratory rate18 /minMD Ayden Freeman Work Phone: 1(329)8[address]07 [address]08-30-2022 12:00-0400 SaO2% (BldA) [Mass fraction]98 %MD Ayden Freeman Work Phone: 1(219)72307 [address]08-30-2022 12:00-0400 Systolic blood jzcinvij940 mm[Hg]MD Ayden Freeman Work Phone: 1(114)95007 [address]08-30-2022 05:22-0400 Body yrgmqt864 kgMD Ayden Freeman Work Phone: 1(811)328-[address] [place], [place] 7355408-29-2022 20:00-0400 Inhaled oxygen rqermtzqawfie80 %MD Ayden Freeman Work Phone: 1(760)95107 [address]08-29-2022 14:56-0400 Body .8 cmMD Ayden Freeman Work Phone: 1(763)[address] [place], [place] 0772708-29-2022 08:11-0400 Body ldvmdotuxol62 [degF]MD Ayden Freeman Work Phone: 1([phone])70507 [address]08-06-2022 11:59-0400 Diastolic blood gdsipynq31 mm[Hg]MD Ayden Freeman Work Phone: 1(495)77707 [address]08-06-2022 11:59-0400 Heart rate95 /minMD Ayden Freeman Work Phone: 1(842)21907 [address]08-06-2022 11:59-0400 Respiratory rate18 /minMD Ayden Freeman Work Phone: 1(184)06307 [address]08-06-2022 11:59-0400 SaO2% (BldA) [Mass fraction]95 %MD Ayden Freeman Work Phone: 1(612)72607 [address]08-06-2022 11:59-0400 Systolic blood tmmvoqoz820 mm[Hg]MD Ayden Freeman Work Phone: 1(869)152-[address] [place], [place] 7355408-06-2022 08:07-0400 Body vizurmusuwl69.8 [degF]MD Ayden Freeman Work Phone: 1(123)8[address]07 [address]08-06-2022 06:00-0400 Body iyekum335.5 kgMD Ayden Freeman Work Phone: 1([phone])45207 [address]08-04-2022 17:24-0400 Body vrrukc249.8 cmMD Ayden Freeman Work Phone: 1([phone])03207 [address]08-04-2022 16:00-0400 Inhaled oxygen flow rate1 L/minMD Ayden Freeman Work Phone: [facility] Encounters Encounter DateEncounter TypeCare ProviderFacilityStart: 60-16-1905Hza-patient / Non-visitAdeyemi aYir JOHNSON-[facility] Work Phone: Start: 63-48-5393Igi-patient / Non-visitLinda Joey JOHNSON-[facility] Work Phone: Start: 05-16-2025 End: 92-15-7405Ekftfmttgh and management of inpatientAbdarchie Garza MD[address] Work Phone: Start: 05-03-2025 End: 80-46-5730Nhbjcj flowsJermaine Lui DO Work Phone: [facility] EyeStart: 05-03-2025 End: 03-32-2465Ncqeen flowsJermaine Simmons Zahlxavier DO Work Phone: NOCJ [facility] EyeStart: 05-03-2025 End: 62-96-4801sxsjmgtkpaEZPVJMGH D ZAHLERNot AvailableComment on above:Retinal InjectionStart: 06-57-7122lksolpltmhITNQHT S CRAMERFacility: BellevueStart: 04-25-2025 End: 92-60-6059rgiojmdbmbSruwmpu A. MouchliFacility:DerejeIsmael DHStart: 04-25-2025 End: 33-78-2111Injcipe encounter procedureMochaitanya Stanton 180-6717Xbpfow-CgfbyAvita Health System [facility] Start: 03-25-2025 End: 90-48-4337wdfridtrfdYzoktn Sue Cramer ROLL TABLE OPERATOR-C Work Phone: [facility] Work Phone: Start: 03-25-2025 End: 69-45-4654Hbpjbcxc ReferredArline Lazar CONTRACT RUNNER-LAB Path Spec [facility] HospStart: 03-23-2025 End: 78-15-2540Nlixdy flowsheetJomerly Myershler DO Work Phone: [facility] EyeStart: 03-23-2025 End: 98-67-2630Vlpeam flowsheetJonatsilvestre Simmons Zahler DO Work Phone: [facility] EyeStart: 03-23-2025 End: 17-63-9804Gknkyuxl SupportJonatsilvestre Myershler DO Work Phone: [facility] EyeComment on above:Retinal InjectionStart: 03-10-2025 End: 59-46-7032Wgilzqm encounter procedureSteven A Rusher DPM Work Phone: noms [facility] PodiatryComment on above:Diabetic polyneuropathy associated with type 2 diabetes mellitus (HCC) (Primary Dx); Type II diabetes mellitus with peripheral circulatory disorder (HCC); Encounter for long-term (current) use of insulin (HCC)Start: 03-10-2025 End: 66-46-0153hxkirnsvihGTVLCV A RUSHERNot AvailableStart: 03-10-2025 End: 83-53-6810Plwyfw flowsheetSteven A Rusher DPM Work Phone: noWin[facility] PodiatryStart: 03-10-2025 End: 55-10-0099Ulytif flowsheetSteven A Rusher DPM Work Phone: noWinneb[facility] PodiatryStart: 03-08-2025 End: 35-12-7566Angtjk flowsheetJonathan Iris Zahler DO Work Phone: [facility] EyeStart: 03-08-2025 End: 09-67-6447Erifan flowsheetJomerly Myershler DO Work Phone: [facility] EyeStart: 03-08-2025 End: 16-27-9374ajicktyakgFOTYCJEK D ZAHLERNot AvailableStart: 03-08-2025 End: 13-78-0008Qxtjyw outpatient new 45 minutesSylvia Lui DO Work Phone: [facility] EyeComment on above:Age-related nuclear cataract of both eyes (Primary Dx); 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); 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 associated with type 2 diabetes mellitus (HCC)Start: 02-25-2025 End: 97-62-1919Jhkkiyxij to same day surgery Negra Titus MD-ay [facility] Work Phone: Start: 02-25-2025 End: 97-52-7807jjvkgifgdiLbwqvaStoney MOSS Work Phone: [facility] Work Phone: Start: 02-15-2025 End: 35-87-8282Qxldzp flowsheetSteven A Rusher DPM Work Phone: noms PODIATRYStart: 02-15-2025 End: 36-22-4888Vzfksn flowsheetSteven A Rusher DPM Work Phone: noms PODIATRYStart: 02-15-2025 End: 86-73-4443Errxyh follow up visit related to original pxSteven A Rusher DPM Work Phone: noms PODIATRYComment on above:Diabetic polyneuropathy associated with type 2 diabetes mellitus (HCC) (Primary Dx); Type II diabetes mellitus with peripheral circulatory disorder (HCC); Encounter for long-term (current) use of insulin ([facility])Start: 02-15-2025 End: 56-77-8684hdyubqilfjCKQSUN A RUSHERNot AvailableStart: 01-19-2025 End: 06-85-0875Apbcmm flowsheetSteven A Rusher DPM Work Phone: noms PODIATRYStart: 01-19-2025 End: 43-62-9075Tgeote flowsheetSteven A Rusher DPM Work Phone: noms PODIATRYStart: 01-19-2025 End: 06-00-2423Jhlmjf outpatient new 30 minutesStevashlyn Burns DPM Work Phone: NOHW PODIATRYComment on above:Dermatophytosis of nail (Primary Dx); Dystrophic nail; Diabetic polyneuropathy associated with type 2 diabetes mellitus ([facility]/HCC); Type II diabetes mellitus with peripheral circulatory disorder ([facility]/HCC); Encounter for long-term (current) use of insulin ([facility])Start: 01-19-2025 End: 27-24-9636uofiosgqmkSEWDPM A RUSHERNot AvailableStart: 12-27-2024 End: 46-69-2338zzvvcrpqabLvgrwp Sue Cramer ROLL TABLE OPERATOR-C Work Phone: [facility] Work Phone: Start: 12-27-2024 End: 84-35-7263Yleizgrn [facility] HospitalLottie Washington BL-H-Zlnfuct Center Main [place]Start: 12-17-2024 End: 40-97-4461Vdrauhaz [facility] Memorial HospitalJnpromedica bay park hospitalluisa [place] BH-R-Bvp-Surgical Testing Work Phone: Start: 12-17-2024 End: 46-78-2383Fqzmitm encounter procedurePamora Lazar ROLL TABLE OPERATOR-C Work Phone: [facility] Thp-Apx-Jvxjvpvw Testing Work Phone: Start: 12-17-2024 End: 34-23-8157wcwtseajruOttxqj Sue Cramer ROLL TABLE OPERATOR-C Work Phone: [facility] Work Phone: Start: 11-18-2024 End: 17-96-0236wzmnmwsgyjEMYQProMedica Fostoria Community Hospitaltart: 11-16-2024 End: 29-73-0099Pmmwouu encounter procedurePamora Lazar ROLL TABLE OPERATOR-C Work Phone: [facility]-MRI Main [place] Work Phone: Start: 11-16-2024 End: 03-74-0167xpdvevuyjrFjyktw Norah MOSS Work Phone: [facility] Work Phone: Start: 10-28-2024 End: 79-80-0521fqrqhlksfrOWTZMadison Healthtart: 10-28-2024 End: 17-55-4390Dkoltuqte for other preprocedural examinationEHSelect Medical [facility] Clinic [facility] Hospital, Avontart: 12-19-2022 End: 59-01-1949xiofuwsjjyDV AYDEN Haney NADERERFacility:V7Shvxh: 06-05-2022 End: 70-03-5847jqhxibposwSQ AYDEN Haney NADERERFacility:Q1Wnmag: 05-29-2022 End: 39-59-6206twlfqbbfoiCI AYDEN Haney NADERERFacility:S1Nxmey: 05-17-2022 End: 08-02-0598shbzdjhlilUC CAROL BLACKERFacility:M9Lnbfz: 05-03-2022 ambulatoryUNKNOWN PROVIDERFacility:METROHealthStart: 05-01-2022 End: 99-85-0200muljgnwhbqROAKLWA PROVIDERFacility:METROHealthStart: 05-01-2022 End: 72-18-8202ojcgtvqdstZu5 ResourceMetroHealth Emergency Triage, Treat and TransportStart: 05-01-2022 End: 75-42-3805Piziiyqao department patient visitEt3 ResourceMetroHealth Emergency Triage, Treat and TransportComment on above:ArrivedStart: 04-24-2022 End: 92-75-2330qicnumjhfkEWGBTVC PROVIDERFacility:METROHealthStart: 04-12-2022 End: 81-53-4356Pkjunvneg department patient visitMD Ayden Freeman Work Phone: [facility]-Emergency RoomStart: 04-10-2022 End: 11-82-2726tcqpqeznkvPJUOGGR PROVIDERFacility:METROHealthStart: 04-02-2022 End: 96-83-4433Ggvysrktte and management of inpatientMD Ayden Freeman Work Phone: [facility] [place] Med SurgStart: 11-02-8962zbcbxyyzylCA AYDEN Haney NADERERFacility:R5Hixhl: 03-14-2022 End: 26-17-0606Bmomwox encounter procedureJEFF CARLOS 337-3409Bubxnp-QisyfMagruder Hospital Medicine [place] Start: 03-14-2022 End: 04-54-7623Ctrttesllj and management of inpatientMD Ayden Freeman Work Phone: [facility] [place] Med SurgStart: 47-65-6607nivgwevazrHE AYDEN Haney NADERERFacility:Y9Gurox: 02-01-2022 End: 11-00-7554nzdvtcvqrvSKJTS CHIKIS .Facility:P0Dhmdg: 01-24-2022 End: 78-16-9274uvxgcscujuKM CAROL YIPFacility:N6Vicxz: 01-18-2022 End: 15-09-5144jcvyqeoblhZF MASON NAELFacility:H1 Procedures DateProcedureProcedure DetailPerforming ClinicianStart: 09-12-0617Eadixthjizoa njx pharmacologic agt spxJonathan D Zahler DO Work Phone: Start: 10-76-6408Oajbanfrnvvu njx pharmacologic agt spxJonathan D Zahler DO Work Phone: Start: 41-24-4738Nqinpxdgzipg ophthalmic imaging retinaJonathan D Zahler DO Work Phone: Start: 13-92-7369Fjsas Nicolle OMSS Work Phone: Start: 93-92-4302Fagvjtfxmguq njx pharmacologic agt spxJonathan D Zahler DO Work Phone: Start: 08-63-7709Wxqnraotfdif ophthalmic imaging retinaJonathan D Zahler DO Work Phone: Start: 47-20-1612Iksoakulujfn axial tomography of lumbar spine with contrastArline Lazar ROLL TABLE OPERATOR-C Work Phone: Start: 21-88-4763NltsjglbiRfmjew Cramer ROLL TABLE OPERATOR-C Work Phone: Start: 05-39-9809LCS screeningDR AYDEN LLOYDRComment on above:Performed By: #### PSASC #### [facility] [address] [place] [address] Dr. Pickering ChangStart: 12-93-0067Mwpur chest X-rayMD Ayden Freeman Work Phone: Start: 04-54-9468LZ angiography of thoraxMD Ayden Freeman Work Phone: Start: 04-02-2022 End: 26-62-5275Zuisu chest X-rayMD Ayden Freeman Work Phone: Start: 00-12-7032Pqmmf X-ray of left hipMD Ayden Freeman Work Phone: Start: 99-47-2661Xhbgk X-ray of left elbowMD Ayden Freeman Work Phone: Start: 32-08-1823Nnyus chest X-rayMD Ayden Freeman Work Phone: Blood culture for bacteria, including anaerobic screen MD Ayden Freeman Work Phone: Cardiac catheterizationMohamad Mouchli CholecystectomyMohamad Mouchli ColonoscopyMohamad Mouchli History of nasal sinus surgeryMohamad Mouchli Refusal of treatment by patientRefusal of treatmentEt3 ResourceSARS Antigen (LFIA)MD Ayden Freeman Work Phone: Plan of Treatment DateCare ActivityDetailAuthorStart: 06-06-2025 End: 19-35-1965Uqvwwrqo Bfhnqtm38/ 2:00 PM EDT Clinical Support [facility] [address] [place] [id number] Sylvia Lui, DO [address] [place] [address] [facility] EyeStart: 45-82-4020ImvucxmjpElyria Memorial Hospitaltart: 57-21-9002Obfdigpy to clinical allergistElyria Memorial Hospitaltart: 67-90-2299GcxxpindsElyria Memorial Hospitaltart: 95-44-3489Wmkdnuta admissionElyria Memorial Hospitaltart: 05-16-2025 [facility] Hospitaltart: 05-03-2025 End: 20-38-0427Tqxziidt Puvamvv0805/03/2025 2:00 PM EDT Clinical Support [facility] [address] [facility]DYHUDS[facility] STATE HOSPITALDonny [id number] Sylvia Lui, DO [address] [place] [address] ArrivedNOClaiborne County Medical Center EyeComment on above:Arrived Start: 04-21-2025 End: 52-61-9304Qxvaycs encounter procedureNOTWO RIVERS [facility] PODIATRYStart: 04-05-2025 End: 16-55-6897Vwqilto encounter vyfltaygt78/26/2025 3:15 PM EDT Office Visit [facility] [address] [place] [id number] Carol Burns DPM [address] [place] [address] [facility] PodiatryStart: 39-71-4839Hvbar [facility] Hospitaltart: 54-36-7454Qoimuqsf identified in Urine by CultureUrine [facility] Hospitaltart: 03-11-2025 End: 80-52-8174Yufzdija Tewmrot1903/11/2025 10:45 AM EDT Clinical Support [facility] [address] [place] [phone] Sylvia Lui, DO [address] [place] [address] [facility] EyeStart: 03-10-2025 End: 65-40-2250Qcvrlwu encounter procedureNOWinnebago Indian Health Services PodiatryComment on above: ArrivedStart: 03-01-2025 End: 17-51-5519Peiclyb encounter /22/2025 1:30 PM EDT Office Visit [facility] [address] [place] [phone] Sylvia Lui, DO [address] [place] [address] [facility] OPHTStart: 84-50-2276QfiwpyohyElyria Memorial Hospitaltart: 01-19-2025 End: 66-41-0973Dguyuph encounter btjttfudg37/11/2025 10:45 AM EDT Office Visit [facility] [address] [place] [phone] Carol Burns, DPM [address] [place] [address] ArrivedMULTICARE TACOMA GENERAL HOSPITAL PODIATRYComment on above:ArrivedStart: 37-46-6970TT CAT/MRI W/ IV SEDATION (Not Applicable)OR CAT/MRI W/ IV SEDATION (Not Applicable) [facility] Hospitaltart: 13-30-4671Fkksnykb screeningDiabetes: Retinopathy ScreeningSALT LAKE BE[facility] HealthcareStart: 70-23-0298Cidzqtopa vaccination Influenza Vaccine (#1)MetroHealthStart: 36-86-9421Jfhhe chest X-rayXR chest 2V* [facility] Hospitaltart: 04-12-2022 End: 38-30-9876Hreihjozt department patient visitDeparted EmergencyDunlap Memorial Hospital-Emergency RoomStart: 78-06-2652DyvglwjdxDunlap Memorial Hospital Work Phone: Start: 65-41-0076DlcltkjzbDunlap Memorial Hospital Work Phone: Start: 04-02-2022 End: 08-20-0230Ivtiqzrgoc and management of inpatientAbrasion of elbowDunlap Memorial Hospital-3 [place] Med SurgStart: 58-12-7367ZZ angiography of thoraxCT angio chest PE protocolOhio State East Hospital CenterStart: 04-02-2022 Hospital admissionDunlap Memorial Hospital Work Phone: Start: 76-96-4600Y-ray of left kneeXR knee LT 2V [facility] Hospitaltart: 83-54-9389Eqhvn chest X-rayXR chest 1V portableElyria Memorial Hospitaltart: 46-71-4013Zsary X-ray of left hipXR hip LT min 2V(w/wo pelvis)*[facility] Hospitaltart: 51-60-6139Ifrnt X-ray of left elbowXR elbow LT min 3V*[facility] CenterStart: 27-30-7354UzzywcgqeDunlap Memorial Hospital Work Phone: Start: 94-61-4435Sjtvcxjn to nephrologistDunlap Memorial Hospital Work Phone: Start: 71-37-1552Oopcwpzi admissionDunlap Memorial Hospital Work Phone: Start: 73-22-0389Mueprlo to Medicare Visit (G0402) Welcome to Medicare Visit (G0402)MetroHealthStart: 07-58-0491Oyepymcpjyv of occult blood in single stool specimenFITMetroHealthStart: 38-21-2872Svxooamuu for malignant neoplasm of colonCRC ScreeningMetroHealthStart: 13-22-9650Xatcicrg (RZV) Vaccine (1 of 2)Shingles (RZV) Vaccine (1 of 2)MetroHealthStart: 12-77-7592Yonhf panelCholesterolMetroHealthStart: 72-85-3223Olcod screening for proteinDiabetes: Urine Protein ScreeningNORI HealthcareStart: 11-28-1975 Hepatitis C screeningHepatitis C AntibodyMetroHealthStart: 99-29-5154Dxcbaaa + diphtheria + acellular pertussis vaccine (product)Tdap BoosterMetroHealthStart: 13-38-0765YSE screeningHIV TestMetroHealthStart: 97-08-9878HXLJY-19 Vaccine (#1) COVID-19 Vaccine (#1)MetroHealthStart: 00-68-1147Deafpznmvg A1c measurement Diabetes: Hemoglobin J8BNJMQ HealthcareStart: 04-19-1958Medicare Annual Wellness (AWV)Medicare Annual Wellness (AWV)[facility] HealthcareStart: 18-48-4841Yqwaqbmgn for malignant neoplasm of colonMetroHealthPatient EducationOhio State East Hospital Ctr Work Phone: Patient referralOhio State East Hospital Ctr Work Phone: [facility] Immunizations Immunization DateImmunizationNotesCare OxrhqxcyFilvxgql48-08-7083xwmelzcxs, high dose seasonal, preservative-freePamela Cady ROLL TABLE OPERATOR-C Work Phone: [facility]10-02-2024influenza, high dose seasonal, preservative-freeSteven Rusher DPM Work Phone: [facility] HospitalLbkpdygpgb82-12-4517Wuthxwvvj, Seasonal, Quadrivalent, AdjuvantedSteven Rusher DPM Work Phone: [facility] HospitalZdjxodsokn72-70-0630Zvhbcrtunzal Conjugate PCV 20 Carol Rusher DPM Work Phone: [facility] HospitalDjtwbikaxx15-16-8590Irouyfpm, quadrivalent, recombinant, injectable influenza vaccine, preservative freeSteven Rusher DPM Work Phone: [facility] HospitalZgpnzlzadq09-52-1943Sutvwing, quadrivalent, recombinant, injectable influenza vaccine, preservative freeSteven Rusher DPM Work Phone: [facility] HospitalIkqptzelpj10-61-5280xiwmthxzi, seasonal, injectable, preservative Eric Bunrs DPM Work Phone: [facility] Payers DatePayer CategoryPayerPolicy [id number]-fms [id number] 2025Medicare (Managed Care)[employer] Member Subscriber Plan / Payer (Effective 2024-Present) Name: Evelin Patterson Relation to Subscriber: Self Name: Evelin Patterson Payer ID: Not on file Group ID: [id number] Type: Not on file Address: [place] [id number] 2022Medicare [id number] Health Insurance [id number] 2021Medicaid [id number] [id number] [id number] [id number] .16.840.1.458997.3.579.2.732 [id number] 2.16.840.1.271796.3.579.2.95732-96-8318Xojrulr [id number] 2.16.840.1.047207.3.57[id number] 2.16.840.1.282036.3.57[id number] 2.16.840.1.271632.3.57[id number] 2.16.840.1.972740.3.57[id number] 2.16.840.1.926434.3.57[id number] 2.16.840.1.128292.3.579.[id number] 2.16.840.1.805456.3.57[id number] 2.16.840.1.123540.3.57[id number] 2.16.840.1.804798.3.57[id number] 2.16.840.1.726960.3.57[id number] 2.16.840.1.872693.3.57[id number] 2.16.840.1.165603.3.57[id number] 2.16.840.1.769104.3.57[id number] 2..1.312224.3.57[id number] 2..1.590622.3.57[id number] 2..1.880992.3.57[id number] 2..1.569736.3.579.[id number] 2..1.647313.3.57[id number] 2..1.450[id number] [facility] [id number] Elite [id number] Care Center [id number] 2g6yh37c-8532-9527-[id number] 2..1.600[id number] 2..1.615630.3.579.2.531 [id number] 2..1.5[id number] 2..1.6[id number] 2..1.646232.3.579.2.531 [id number] 2..1.090047.3.579.2.531 Social History DateTypeDetailFacilityTobacco smoking statusNo [facility]oking Status [facility] Start: 10-01-2023 End: 60-49-0663Ayl Assigned At [facility] Start: 04-02-2022 End: 07-29-1425Lcyawmk smoking status NHISNever smoked tobacco (finding) [facility]: 47-45-0477Eyh [facility] smoking status NHISTobacco smoking consumption unknownMetroHealthStart: 28-68-9379Gko Assigned At BirthNot on file [facility]Start: 11-22-2009 End: 64-81-3100GrgSmdm (finding)[facility]: 09-14-2023 End: 66-33-4231Hwcuzts use and exposureSmokeless tobacco non-userNOMS Healthcare Start: 10-01-2023 End: 21-44-2697Bjtaofwls beverage intakeLifetime non-drinker (finding)[facility] HealthcareStart: 10-01-2023 End: 82-16-4804Jopbwkl of Social functionNOMS HealthcareStart: 25-82-7803Xkyphxr Commentcaffeine intake : more than 4 cups per dayNORI HealthcareTobacco smoking statusAvita Health System [facility] NEGATED: Highlighted rowStart: NINFHistory of tobacco usePassive smokerNORI Healthcare Medical Equipment Procedure CodeEquipment CodeEquipment Original TextEquipment IdentifierDates Lancets-Blood Glucose Strips (Gojji Lancet-Glucose Test Strp) 30 gauge Combo PackStart: 03-16-2022 End: 03-30-4164Qkp Needle, Diabetic ([place]) 29 gauge x 1/2 NeedleStart: 03-16-2022 End: 89-69-5315Nbggnhf-Blood Glucose Strips (Gojji Lancet-Glucose Test Strp) 30 gauge Combo PackStart: 03-16-2022 End: 74-75-9238Hxh Needle, Diabetic ([place]) 29 gauge x 1/2 NeedleStart: 03-16-2022 End: 51-49-7367Xsibqps-Blood Glucose Strips (Gojji Lancet-Glucose Test Strp) 30 gauge Combo PackStart: 03-16-2022 End: 90-50-0565Hsi Needle, Diabetic ([place]) 29 gauge x 1/2 NeedleStart: 03-16-2022 End: 94-41-1600Fmhrnem-Blood Glucose Strips (Gojji Lancet-Glucose Test Strp) 30 gauge Combo PackStart: 03-16-2022 End: 19-33-9622Efz Needle, Diabetic ([place]) 29 gauge x 1/2 NeedleStart: 03-16-2022 End: 97-78-1916Whvahud-Blood Glucose Strips (Gojji Lancet-Glucose Test Strp) 30 gauge Combo PackStart: 03-16-2022 End: 57-59-0212Kgt Needle, Diabetic (Pentips) 29 gauge x 1/2 NeedleStart: 03-16-2022 End: 73-67-4831Buwgbml-Blood Glucose Strips (Gojji Lancet-Glucose Test Strp) 30 gauge Combo PackStart: 03-16-2022 End: 28-23-3852Wuo Needle, Diabetic (Pentips Pen Needle) 29 gauge x 1/2 Needle Start: 03-16-2022 End: 25-53-1547Florlnx-Blood Glucose Strips (Gojji Lancet-Glucose Test Strp) 30 gauge Combo PackStart: 03-16-2022 End: 49-20-9944Xho Needle, Diabetic (Pentips Pen Needle) 29 gauge x 1/2 Needle Start: 03-16-2022 End: 08-37-7705OFM 1 EACH DAY [id number]: 95-46-0318Jmwcwdq-Blood Glucose Strips (Gojji Lancet-Glucose Test Strp) 30 gauge Combo PackStart: 03-16-2022 End: 17-97-2030Qfo Needle, Diabetic (Pentips Pen Needle) 29 gauge x 1/2 Needle Start: 03-16-2022 End: 52-02-5381Udfwpox-Blood Glucose Strips (Gojji Lancet-Glucose Test Strp) 30 gauge Combo PackStart: 03-16-2022 End: 92-12-8244Ush Needle, Diabetic (Pentips Pen Needle) 29 gauge x 1/2 Needle Start: 03-16-2022 End: 39-77-4449Mlpzadj-Blood Glucose Strips (Gojji Lancet-Glucose Test Strp) 30 gauge Combo PackStart: 03-16-2022 End: 91-26-8042Eff Needle, Diabetic (Pentips Pen Needle) 29 gauge x 1/2 Needle Start: 03-16-2022 End: 56-99-0010Ykfhmmm-Blood Glucose Strips (Gojji Lancet-Glucose Test Strp) 30 gauge Combo PackStart: 03-16-2022 End: 56-92-4344Ipd Needle, Diabetic (Pentips Pen Needle) 29 gauge x 1/2 Needle Start: 03-16-2022 End: 12-22-6434Uqyzzmn-Blood Glucose Strips (Gojji Lancet-Glucose Test Strp) 30 gauge Combo PackStart: 03-16-2022 End: 56-60-3104Myf Needle, Diabetic (Pentips Pen Needle) 29 gauge x 1/2 Needle Start: 03-16-2022 End: 04-09-2022 Goals DatePatient GoalDesired Activity/State Functional Status UctoVpipliozsyUmsuviZrinwkro91-82-1961Efhibnasdp status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gressing [facility]ard [facility] Work Phone: [phone]biobblg statusPatient at Baseline [facility] Work Phone: Mental Status RkjyErkolaxyyhHoaigxEtfmnilc10-03-9013Cpvcmmulc functionCognitive Status [facility] Work Phone: [phone]ahvsbk functionCognitive Status [facility] Work Phone: Clinical Notes 2021 to 05-16-2025 Note Date & XnuqIuqpSbywblnc68-13-7269 Evaluation note* Diagnosis Onset Date Resolution Status Admit Date CHF (congestive heart failure) acuteOctober 2024 1:26pmChronic kidney disease, stage III (moderate)acute May 16, 2025 1:26pmHypertensionacuteOctober 2024 1:26pmMajor depressive disorderacuteOctober 2024 1:26pmObstructive sleep apneaacute May 16, 2025 1:26pmParoxysmal A-fibacuteOctober 2024 1:26pmSuicidal ideationsacuteOctober 2024 1:26pm [facility] Work Phone: [phone] 664-689909-25-2025 NoteRight Eye Quality was good. Scan locations included subfoveal. Progression has worsened. Findings include abnormal foveal contour, intraretinal fluid. Left Eye Quality was good. Scan locations included subfoveal. Progression has been stable. Findings include abnormal foveal contour, intraretinal fluid.[facility] HospitalHukrrgjxrb27-86-9213 NoteTime Out 05/03/2025. 3:21 PM. Confirmed correct patient, procedure, site, and patient consented. Anesthesia Topical anesthesia was used. Anesthetic medications included Lidocaine 2%, Proparacaine 0.5%. Procedure Preparation included 5% betadine to ocular surface, eyelid speculum. A 30 gauge needle was used. Injection: 1.25 mg Bevacizumab 1.25 MG/0.05ML Route: Intravitreal, Site: Right Eye [facility]: [address]-8, Lot: [id number], Expiration date: 06/28/2025 Post-op Post injection exam found visual acuity [...] increased pain, redness, decreased vision or concerns. [facility] HospitalLptlpbqpuj88-65-9548 NoteTime Out 05/03/2025. 3:17 PM. Confirmed correct patient, procedure, site, and patient consented. Anesthesia Topical anesthesia was used. Anesthetic medications included Lidocaine 2%, Proparacaine 0.5%. Procedure Preparation included 5% betadine to ocular surface, eyelid speculum. Injection: 1.25 mg Bevacizumab 1.25 MG/0.05ML Route: Intravitreal, Site: Left Eye [facility]: [address]-6, Lot: [id number], Expiration date: 06/28/2025 Post-op Post injection exam found visual acuity [...] with increased pain, redness, decreased vision or concerns.[facility] HospitalVbwemzjwmj03-51-6797 History of Present illness Narrative* Sylvia Lui, DO - 05/03/2025 2:00 PM EDT Images from the original note were not included. 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 3:17 PM. Confirmed correct patient, procedure, site, and patient consented. Anesthesia Topical anesthesia was used. Anesthetic medications included Lidocaine 2%, Proparacaine 0.5%. Procedure Preparation included 5% betadine to ocular surface, eyelid speculum. Injection: 1.25 mg Bevacizumab 1.25 MG/0.05ML Route: Intravitreal, Site: Left Eye [facility]: [address]-8, Lot: [id number], Expiration date: 06/28/2025 Post-op Post injection exam found visual acuity [...] With intraocular surgery, there is potential for directretinal damage through retinal or RPE tear, or infection, with subsequent vision loss. Informative Intravitreal pamphlet provided as well as an OMIC consent. Of course, the treatment may fail to accomplish the overall therapeutic objectives, which is to stall or decrease the amount of retinal edema/ bleeding, and therefore stall or improve vision loss. Intravitreal Anti-VEGF: Consent was obtained and questions answered. Operative eye was identified, receiving topical proparacaine, 5% betadine, and 2% xylocaine jelly. A lid speculum was placed and the inferotemp. injection site received additional anesthetic with a proparacaine soaked cotton swab.Using calipers (set at 3.5mm for pseudo and 4mm for phakic), the inferotemp. limbus was measured, sclera marked and 2 additional drops of betadine placed. Avoiding any talking to avoid contamination,intravitreal injection was carried out without difficulty. Any residual amount of medication was discarded appropriately. The patient tolerated the procedure well and instructed to call with increased pain, redness, decreased vision or concerns. Intravitreal Injection, Pharmacologic Agent - OD - Right Eye Time Out 05/03/2025. 3:21 PM. Confirmed correct patient, procedure, site, and patient consented. Anesthesia Topical anesthesia was used. Anesthetic medications included Lidocaine 2%, Proparacaine 0.5%. Procedure Preparation included 5% betadine to ocular surface, eyelid speculum. A 30 gauge needle was used. Injection: 1.25 mg Bevacizumab 1.25 MG/0.05ML Route: Intravitreal, Site: Right Eye [facility]: [address]-4, Lot: [id number], Expiration date: 06/28/2025 Post-op Post injection exam found visual acuity [...] With intraocular surgery, there is potential for directretinal damage through retinal or RPE tear, or infection, with subsequent vision loss. Informative Intravitreal pamphlet provided as well as an OMIC consent. Of course, the treatment may fail to accomplish the overall therapeutic objectives, which is to stall or decrease the amount of retinal edema/ bleeding, and therefore stall or improve vision loss. Intravitreal Anti-VEGF: Consent was obtained and questions answered. Operative eye was identified, receiving topical proparacaine, 5% betadine, and 2% xylocaine jelly. A lid speculum was placed and the inferotemp. injection site received additional anesthetic with a proparacaine soaked cotton swab.Using calipers (set at 3.5mm for pseudo and 4mm for phakic), the inferotemp. limbus was measured, sclera marked and 2 additional drops of betadine placed. Avoiding any talking to avoid contamination,intravitreal injection was carried out without difficulty. Any residual amount of medication was discarded appropriately. The patient tolerated the procedure well and instructed to call with increased pain, redness, decreased vision or concerns. documented in this encounterNorth [facility] HospitalIimyazxjbb72-77-6371 NoteTime Out 03/23/2025. 2:18 PM. Confirmed correct patient, procedure, site, and patient consented. Anesthesia Topical anesthesia was used. Anesthetic medications included Lidocaine 2%, Proparacaine 0.5%. Procedure Preparation included 5% betadine to ocular surface, eyelid speculum. A 30 gauge needle was used. Injection: 1.25 mg Bevacizumab 1.25 MG/0.05ML Route: Intravitreal, Site: Right Eye [facility]: [address]-4, Lot: [id number], Expiration date: 04/18/2025 Post-op Post injection exam [...] increased pain, redness, decreased vision or concerns. [facility] [place] [facility] HospitalZtryrygvsj43-95-1757 History of Present illness Narrative* Sylvia Lui, DO - 03/23/2025 1:45 PM EDT Images from the original note were not included. 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 Informative Intravitreal pamphlet provided as well as an OMIC consent. Of course, the treatment may fail to accomplish the overall therapeutic objectives, which is to stall or decrease the amount of retinal edema/ bleeding, and therefore stall or improve vision loss. Intravitreal Anti-VEGF: Consent was obtained and questions answered. Operative eye was identified, receiving topical proparacaine, 5% betadine, and 2% xylocaine jelly. A lid speculum was placed and the inferotemp. injection site received additional anesthetic with a proparacaine soaked cotton swab.Using calipers (set at 3.5mm for pseudo and 4mm for phakic), the inferotemp. limbus was measured, sclera marked and 2 additional drops of betadine placed. Avoiding any talking to avoid contamination,intravitreal injection was carried out without difficulty. Any residual amount of medication was discarded appropriately. The patient tolerated the procedure well and instructed to call with increased pain, redness, decreased vision or concerns. documented in this encounterNorth [facility] City HospitalQwxklkyvpi48-44-4534 History of Present illness Narrative* Carol Burns DPM - 03/10/2025 4:00 PM EDT Images from the original note were not included. Subjective Patient ID: Evelin Patterson is a 69 y.o. male who presents for Diabetic Shoes (Established patient presents today for diabetic shoe pickup. [address] Comfort shoes and 3 pair of heat molded inserts were dispensed. Patient wishes to wear shoes out today, patient understands that he cannot returnor exchange shoes once worn outside. ). HPI [...] pen, INJECT 40 UNITS SUBCUTANEOUSLY EVERY DAY, Disp:5 each, Rfl: 3 insulin pen needle (B-D UF III MINI PEN NEEDLES) 31G x 5 mm [facility], USE 1 EACH DAY DIRECTED, Disp:100 each, Rfl: 9 isosorbide mononitrate ER (Imdur) 30 MG 24 hr tablet, Take 1 tablet (30 mg) by mouth Daily, Disp: 30 tablet, Rfl: 11 levothyroxine (Synthroid, Levoxyl) 200 MCG tablet, Take 200 mcg by mouth Daily, Disp: , Rfl: liothyronine (Cytomel) 5 MCG tablet, TAKE 1 TABLET BY MOUTH EVERY DAY ON EMPTY STOMACH FOR 30 DAYS,Disp: , Rfl: lisinopril 40 MG tablet, Take [...] edema bilateral ankles, with multiple telangiectasias. Mild stasisdermatosis. CAPILLARY FILLING TIME(sec): capillary fill intact bilateral [...] slightly raised keratosis along the rim of bothheels. HYPERKERATOSIS:diffuse, raised hyperkeratosis along the rim of [...] understanding. Carol Burns DPM documented in this [facility]07-31-2025 Instructions* Patient Instructions* Carol Burns DPM - 03/10/2025 4:00 PM EDT Acclimating instructions as noted documented in this [facility]07-29-2025 NoteRight Eye Quality was good. Scan locations included subfoveal. Progression has worsened. Findings include abnormal foveal contour, intraretinal fluid, subretinal fluid. Left Eye Quality was good. Scan locations included subfoveal. Progression has worsened. Findings include abnormal foveal contour, intraretinal fluid, subretinal fluid.[facility] [place] [facility] HospitalAbeerdbrcv40-60-4664 History of Present illness Narrative * Sylvia Lui, - 03/08/2025 10:45 AM EDT Images from the original note were not [...] right eye with macular edema associated with type2 diabetes mellitus (HCC) Moderate nonproliferative diabetic retinopathy [...] yearly dilated examinations, but to contact us imm ediately for any problems or concerns. Continue aggressive control of the blood sugar, blood pressure and cholesterol. - Mr. Patterson shows DME both eyes (OU) that would ideally be controlled prior to treatment of his cataracts. Discussed the usage of antiVEGF both eyes (OU). R/B/A/E provided. Will start with Avastin. documented in this encounterNorth [facility] City HospitalTfqckrsvur82-78-6381 History of Present illness Narrative* Carol Burns DPM - 02/15/2025 1:00 PM EDT Images from the original note were not [...] pen, INJECT 40 UNITS SUBCUTANEOUSLY EVERY DAY, Disp:5 each, Rfl: 3 insulin pen needle (B-D UF III MINI PEN NEEDLES) 31G x 5 mm misc, USE 1 EACH DAY DIRECTED, Disp:100 each, Rfl: 9 isosorbide mononitrate ER (Imdur) 30 MG 24 hr tablet, Take 1 tablet (30 mg) by mouth Daily, Disp: 30 tablet, Rfl: 11 levothyroxine (Synthroid, Levoxyl) 200 MCG tablet, Take 200 mcg by mouth Daily, Disp: , Rfl: liothyronine (Cytomel) 5 MCG tablet, TAKE 1 TABLET BY MOUTH EVERY DAY ON EMPTY STOMACH FOR 30 DAYS,Disp: , Rfl: lisinopril 40 MG tablet, Take [...] edema bilateral ankles, with multiple telangiectasias. Mild stasisdermatosis. CAPILLARY FILLING TIME(sec): capillary fill intact bilateral [...] slightly raised keratosis along the rim of bothheels. HYPERKERATOSIS:diffuse, raised hyperkeratosis along the rim of [...] Measurements obtained in the weight-bearing position utilizing [employer] device. Patient education and counseling relative to [...] understanding. Carol Burns DPM documented in this [facility]07-08-2025 Instructions* Patient Instructions* Carol Burns DPM - 02/15/2025 1:00 PM EDT As noted documented in this [facility]06-11-2025 History of Present illness Narrative* Carol Burns DPM - 01/19/2025 10:45 AM EDT Images from the original note were not [...] pen, INJECT 40 UNITS SUBCUTANEOUSLY EVERY DAY, Disp:5 each, Rfl: 3 insulin pen needle (B-D UF III MINI PEN NEEDLES) 31G x 5 mm misc, USE 1 EACH DAY DIRECTED, Disp:100 each, Rfl: 9 isosorbide mononitrate ER (Imdur) 30 MG 24 hr tablet, Take 1 tablet (30 mg) by mouth Daily, Disp: 30 tablet, Rfl: 11 levothyroxine (Synthroid, Levoxyl) 200 MCG tablet, Take 200 mcg by mouth Daily, Disp: , Rfl: liothyronine (Cytomel) 5 MCG tablet, TAKE 1 TABLET BY MOUTH EVERY DAY ON EMPTY STOMACH FOR 30 DAYS,Disp: , Rfl: lisinopril 40 MG tablet, Take [...] edema bilateral ankles, with multiple telangiectasias. Mild stasisdermatosis. CAPILLARY FILLING TIME(sec): capillary fill intact bilateral [...] slightly raised keratosis along the rim of bothheels. HYPERKERATOSIS:diffuse, raised hyperkeratosis along the rim of [...] of any cryptotic margins, all periungual debris; providingeffective pressure relief; reducing shoe and digital trauma; [...] understanding. Carol Burns DPM documented in this [facility]06-11-2025 Instructions* Patient Instructions* Carol Burns DPM - 01/19/2025 10:45 AM EDT As noted documented in this [facility]03-20-[facility] Chief Complaint: New patient here to re-establish care. He had heart cath back in 2009 at [facility]. He was diagnosed with afib [...] can be completed. Barb Hays MD, MPH, [facility], [facility], [facility] Interventional Cardiology Pager Email: [email or web address] History of Present illness Narrative* Peter Molina, - 05/03/2022 9:41 AM EDT Images from the original note were not included. EMERGENCY TRIAGE, TREAT AND TRANSPORT (ET3) DOCUMENTATION OF TELEHEALTH VISIT Date / Time: 05/01/2022 / 0600 Name: Evelin Patterson : 1955 SSN: [id number] EMS Agency: [facility] [x] Verbal consent obtained [] [...] by: Peter Molina DO documented in this t[id number] Progress note Author Lupe Hernandez [facility] April 08, 2022 1:38pmNote Date/TimeAugust 2021 1:38pm[place] [address] Hospitalist Progress Note Signed Patient: Evelin Patterson MR#: [id number] : 1955 Acct:[id number] Age/Sex: 66 / M Adm Date: 2 Loc: 3T Room: [address] [place] [address] Type: ADM INOo Attending Dr: Lupe Hernandez MD Copies to: ~ Date of Service: 04/08/2022 Subjective Subjective Narrative: Patient examined at bedside and mentioned not sleeping well last night and complaining of nausea. He took his oxygen off as it was bothering him with pulse ox of 89%. He was placed back on 2 and halfliter oxygen. He is not using CPAP at [...] Hypothyroidism: Plan Patient currently awaiting placement to [facility] facility. Remains in normal sinus rhythm. He has not been able to tolerate CPAP. He will benefit from sleep study as an outpatient. Dose of levothyroxine has been increased dueto elevated TSH. Patient will require outpatient hematology/oncology consultation regarding gammopathy. Continue basal insulin sliding scale coverage. Continue lisinopril, sertraline, ropinirole Xarelto for DVT prophylaxis Documented By: Lpue Hernandez MD 04/08/221331 Signed By: <Electronically signed by Lupe Hernandez MD> 04/08/221337 [facility] Work Phone: 1(371) 837-224208-28-2022 Discharge summary Author Luke Moran [facility] [place] 28th, 2022 4:16pmNote Date/TimeAugust 2021 10:05[place] [address] Discharge Summary Signed with Addenda Patient: Evelin Patterson MR#: [id number] : 1955 Acct:[id number] Age/Sex: 66 / M Adm Date: 2 Loc: Room: [address] [place] [address]: Luke Moran MD Copies to: [...] discharged home in stable condition to a [facility] facility. Medical therapy was adjusted as noted [...] 10:24: POC Glucose 271 04/03/22 07:34: Free Rosita LC, Quant 93.9 H, Free Lambda LC, Quant 61.6 H, Free Rosita/Lambda Ratio 1.52 Exam Physical Exam Vital Signs: [...] Instructions: Sliding Scale ACHS Other Ambulatory Orders: COFFEE GROWER polysom procedure (Routine) Timeframe: 3 Weeks Location: Determined by Patient Ordered By: Luke Moran Follow Up: [facility] [Outside] ([facility] or Central Scheduling will call you to arrange date/time for sleep study. ) Documented By: Luke Moran MD 04/07/22 0907 Signed By: <Electronically signed by Luke Moran MD> 04/07/22 5423 [facility] Work Phone: 1(980) 307-440308-27-2022 Progress note Author Luke Moran [facility] April 06, 2022 2:50pmNote Date/TimeAugust 2021 2:50pm[place] [address] Hospitalist Progress Note Signed Patient: Evelin Patterson MR#: [id number] : 1955 Acct:[id number] Age/Sex: 66 / M Adm Date: 2 Loc: 3T Room: [address] [place] [address] Type: ADM INOo Attending Dr: Luke Moran [...] again CPAP at night and whenever asleep. Wewill try to fit him with an appropriate [...] signed by Luke Moran MD> 04/06/22 1450 [facility] Work Phone: 1(419) 201-102008-25-2022 Progress note Author Luke Moran [facility] April 04, 2022 4:25pmNote Date/TimeAugust 2021 4:25pm[place] [address] Hospitalist Progress Note Signed Patient: Evelin Patterson MR#: [id number] : 1955 Acct:[id number] Age/Sex: 66 / M Adm Date: 2 Loc: Room: [address] [place] [address] Type: ADM INOo Attending Dr: Luke Moran [...] Administration Ropinirole HCl 0.5 mg 04/02/22 23:15 08/24/22 21:17 Ropinirole 0.5 Mg Tablet PO 04/02/23 [...] <Electronically signed by Luke Moran MD> 04/04/22 9715 [facility] Work Phone: 1(793) 159-708108-24-2022 Progress note Author Luke Moran [facility] April 03, 2022 2:05pmNote Date/TimeAugust 2021 2:05pm[place] [address] Hospitalist Progress Note Signed Patient: Evelin Patterson MR#: [id number] : 1955 Acct:[id number] Age/Sex: 66 / M Adm Date: 2 Loc: Room: [address] [place] [address] Type: ADM INOo Attending Dr: Luke Moran [...] the past. Likely secondary to [place], but Isee no serological studies for hepatitis B and [...] signed by Luke Moran MD> 04/03/22 1409 [facility] Work Phone: 1(481) 317-488008-23-2022 History and physical note Author Luke Moran [facility] April 02, 2022 7:48pmNote Date/TimeAugust 2021 7:[address] [address] Hospitalist H&P Signed Patient: Evelin Patterson MR#: [id number] : 1955 Acct:[id number] Age/Sex: 66 / M Adm Date: 2 Loc: ER Room: Type: [facility] ER Attending Dr: Copies [...] his knees buckled and he sustained a fallwith no significant injury. He denies having any [...] 4 L/min. He has also multiple reasons mayela hypoxic, including super morbid obesity with a BMI of 51, noncompliance with CPAP therapy for sleep apnea due toclaustrophobia, possible COPD. Repeat echocardiogram. Prior study is from July 2020. #3 Abnormal bilirubin, imaging suggestive of cirrhosis in the past. Likely secondary to [place], but Isee no serological studies for hepatitis B and [...] History Comments: [facility] Medications and Allergies Allergies metformin Adverse [...] pen (Levemir FlexTouch U- 100 Insulin) 40 unit(0.4 mL) subcut DAILY.WITH.BKFAST 30 days #12 mL [...] % (Auto) 8.7 % (.) 04/02/22 17:51 [place] % (Auto) 12.2 % (.) 04/02/22 17:51 Eos % (Auto) 2.4 % (.) 04/02/22 17:51 Baso % (Auto) 0.6 % (.) 04/02/22 17:51 Neut # (Auto) 6.4 x10E3/uL (1.8-7.7) 04/02/22 17:51 Lymph # (Auto) 0.7 x10E3/uL (1.00-4.8) L 04/02/22 17:51 [place] # (Auto) 1.0 x10E3/uL (0.0-0.8) H 04/02/22 [...] <Electronically signed by Luke Moran MD> 04/02/221947 [facility] Work Phone: 1(461) 964-708208-06-2022 Discharge summary Author Xin Phan [facility] March 16, 2022 9:37amNote Date/TimeAugust 2021 9:37[place], [place] [address] Discharge Summary Signed Patient: Evelin Patterson MR#: [id number] : 1955 Acct:[id number] Age/Sex: 66 / M Adm Date: 2 Loc: Room: [address] [place] [address]: Xin Phan MD Copies to: [...] kidney injury.? Patient presented with generalized weakness anddisorientation at [facility]. He was noted to have blood sugars in the 400s and hypotensive withsystolic blood pressures in the 80s.? Blood work revealed a creatinine of 4.34.?He states that he has been feeling weak for the past couple weeks, with a productive cough and poor appetite, due to loss oftaste.? He denies chest pain or palpitation. No pain? with inspiration.? No abdominal pain or indigestion, constipation or diarrhea, nausea or vomiting.? No dysuria or retention.? No headache or dizziness.? No fevers Paperwork from [facility] reviewed, chest x-ray with no acute cardiopulmonary process.? Sodium 129.?Potassium 3.3.? Creatinine 2.52.? WBC 6.8.? Hemoglobin 12.5.? Glucose 4.34.? Patient will be admitted by the hospitalist team for further evaluation and management. Patient was positive for COVID, patient was alert oriented x3 at [facility],patient states that he has been having symptoms [...] states that he does see family doctor asoutpatient, patient advised to follow-up closely with family [...] untreated sleep apnea Instructions: Blood Glucose Monitoring, [facility] COVID-19 Discharge Instructions Prescriptions: New Levemir FlexTouch [...] signed by Xin Phan MD> 03/16/22 0937 [facility] Work Phone: 1(710) 627-726008-05-2022 Progress note Author Sarah [facility] March 15, 2022 3:43pmNote Date/TimeAugust 2021 3:37pm[place] [address] Nephrology Progress Note Signed Patient: Evelin Patterson MR#: [id number] : 1955 Acct:[id number] Age/Sex: 66 / M Adm Date: 2 Loc: Room: [address] [place] [address] Type: ADM IN Attending Dr: Xin Phan MD Copies to: ~ Date of Service: 03/15/2022 Subjective Subjective Narrative: This is 66-year-old male patient with a past medical history of morbid obesity, endocarditis, paroxysmal A. fib, diabetes type 2, anxiety and depression and chronic kidney disease stage III. Patient presented to [facility] with feeling weak and disoriented [...] blood pressure was in the 80s at [facility]. Patient was given IV fluid [...] nasal cannula 2 L. Denied nauseavomiting or worseningbreathing. No chest pain Denies urinary obstructive symptoms. [...] 500 Mg Tablet) 500 mg PO DAILY [facility] Stop: 03/14/23 08:59 Last Admin: 03/15/22 08:34 Dose: 500 mg Dexamethasone 2 mg/ (Dexamethasone 4 mg) 6 mg PO DAILY [facility] Stop: 03/22/23 08:59 Last Admin: 03/15/22 [...] 5,000 Unit/Ml Vial) 5,000 unit SUBCUT Q12HR [facility] Stop: 03/14/23 08:59 Last Admin: 03/15/22 08:34 Dose: 5,000 unit Sodium Chloride (0.9% Sodium Chloride 1,000 Ml) 1,000 mls @ 100 mls/hr IV .[id number] Stop: 03/14/23 01:59 Last Admin: 03/15/22 06:46 Dose: 100 mls/hr Insulin Aspart (Insulin Aspart 300 Units/3 Ml Insuln.Pen) 0 units SUBCUT TID.WM.HS [facility]; Protocol Stop: 03/14/23 07:59 Last Admin: 03/15/22 12:06 Dose: 9 units Insulin Detemir (Insulin Detemir 300 Units/3 Ml Insuln.Pen) 40 units SUBCUT DAILY.WITH.BKFAST [facility] Stop: 03/16/23 07:59 Zinc Sulfate (Zinc Sulfate 220 Mg Capsule) 220 mg PO DAILY [facility] Stop: 03/14/23 08:59 Last Admin: 03/15/22 [...] more than 400. Patient also on dexamethasone forCOVID which is likely contributing to hyperglycemia. Patient is on insulin to control blood glucoselevel as directed by the primary service (5) COVID: Assessment/Problem Details: Patient tested positive for COVID-19 virus. He is likely hypoxic. On nasal cannula 2 L/min. Only ondexamethasone. He is not candidate for remdesivir dueto [...] Call if any question Documented By: Sarah Osnua MD 03/15/22 1536 Signed By: <Electronically signed by Sarah Osuna MD> 03/15/22 1542 [facility] Work Phone: 1(463) 997-695108-05-2022 Progress note Author Xin Phan [facility] March 15, 2022 12:44pmNote Date/TimeAugust 2021 12:44pm[place] [address] Hospitalist Progress Note Signed Patient: Evelin Patterson MR#: [id number] : 1955 Acct:[id number] Age/Sex: 66 / M Adm Date: 2 Loc: Room: [address] [place] [address] Type: ADM IN Attending Dr: Xin Phan MD Copies to: ~ Date of Service: 03/15/2022 Subjective Subjective Narrative: Patient is a 66-year-old male, with a PMHx of Morbid obesity, endocarditis in August of this year,atrial fibrillation, type 2 diabetes, hypertension, liver cirrhosis, anxiety and depression who was[facility] acute kidney [facility]. Patient presented with generalized weakness anddisorientation at [facility]. [...] No dysuria or retention. No headache or dizziness.No fevers Paperwork from [facility] reviewed, chest x-ray [...] likely tomorrow Documented By: Xin Phan MD 03/15/220 Signed By: <Electronically signed by Xin Phan MD> 03/15/22 3925 [facility] Work Phone: 1(128) 808-515608-04-2022 Progress note Author Renato Looney [facility] March 14, 2022 2:14pmNote Date/TimeAugust 2021 2:14pm[place] [address] Progress Note Signed Patient: Evelin Patterson MR#: [id number] : 1955 Acct:[id number] Age/Sex: 66 / M Adm Date: 2 Loc: Room: [address] [place] [address] Type: ADM IN Attending Dr: Renato Looney MD Copies to: ~ Date of Service: 03/14/2022 Progress Narrative Note PROGRESS NOTE Progress Note: Patient seen and evaluated by printed circuit board assembler early this morning and also by myself. Briefly, patient is a 66-year-old male past medical history significant for obesity, atrial fibrillation, hypertension, diabetes, liver cirrhosis, mood disorder and recent endocarditis infection who presented to outlying facility due to generalized weakness found to have COVID-19 and acute kidney injury and was transferred to [facility] for further evaluation and management. 1. Acute [...] signed by Renato Looney MD> 03/14/22 1414 [facility] Work Phone: 1([phone]) 564-676808-04-2022 Consult note Author Sarah Osuna [facility] March 14, 2022 12:30pmNote Date/TimeAugust 2021 12:30pm[place] [address] Nephrology Consult Note Signed Patient: Evelin Patterson MR#: [id number] : 1955 Acct:[id number] Age/Sex: 66 / M Adm Date: 2 Loc: Room: [address] [place] [address] Type: ADM IN Attending Dr: Renato Looney [...] kidney disease stage III. Patient presented to [facility] with feeling weak and disoriented [...] blood pressure was in the 80s at [facility]. Patient was given IV fluid [...] nasal cannula 2 L. Denied nauseavomiting or worseningbreathing. No chest pain Denies urinary obstructive symptoms. [...] History Comments: [facility] Medications & Allergies Allergies metformin Adverse [...] 500 Mg Tablet) 500 mg PO DAILY [facility] Stop: 03/14/23 08:59 Last Admin: 03/14/22 08:34 Dose: 500 mg Dexamethasone 2 mg/ (Dexamethasone 4 mg) 6 mg PO DAILY [facility] Stop: 03/22/23 08:59 Last Admin: 03/14/22 [...] 5,000 Unit/Ml Vial) 5,000 unit SUBCUT Q12HR [facility] Stop: 03/14/23 08:59 Last Admin: 03/14/22 08:39 Dose: 5,000 unit Sodium Chloride (0.9% Sodium Chloride 1,000 Ml) 1,000 mls @ 100 mls/hr IV .[id number] Stop: 03/14/23 01:59 Last Admin: 03/14/22 03:26 Dose: 100 mls/hr Insulin Aspart (Insulin Aspart 300 Units/3 Ml Insuln.Pen) 0 units SUBCUT TID.WM.HS [facility]; Protocol Stop: 03/14/23 07:59 Last Admin: 03/14/22 12:06 Dose: Not Given Insulin Detemir (Insulin Detemir 300 Units/3 Ml Insuln.Pen) 35 units SUBCUT DAILY.WITH.BKFAST [facility] Stop: 03/14/23 07:59 Last Admin: 03/14/22 08:34 Dose: 35 units Zinc Sulfate (Zinc Sulfate 220 Mg Capsule) 220 mg PO DAILY [facility] Stop: 03/14/23 08:59 Last Admin: 03/14/22 [...] M.D.03/14/2022 8:24 AM Dictation Location: [place] [address] Any impression(s) listed above is documentation that [...] more than 400. Patient also on dexamethasone forCOVID which is likely contributing to hyperglycemia. Patient is on insulin to control blood glucoselevel as directed by the primary service (5) COVID: Assessment/Problem Details: Patient tested positive for COVID-19 virus. He is likely hypoxic. On nasal cannula 2 L/min. Only ondexamethasone. He is not candidate for remdesivir dueto FRANC (6) Hyponatremia: Assessment/Problem Details: Likely from hyperglycemia. Mild and asymptomatic Plan - Serum creatinine peaked at 4.3 mg deciliter. Baseline creatinine 1.7 as of last year. Patient could have component of CKD progression and baseline creatinine this year likely higher than last year.Sodium fraction excretion was below 1% indicating prerenal [...] <Electronically signed by Sarah Osuna MD> 03/14/22 0769 [facility] Work Phone: 1(700) 442-977108-04-2022 History and physical note Author Mary Jane Riley [facility] March 14, 2022 6:40amNote Date/TimeAugust 2021 2:02[place], [place] [address] Hospitalist H&P Signed Patient: Evelin Patterson MR#: [id number] : 1955 Acct:[id number] Age/Sex: 66 / M Adm Date: 2 Loc: 3T Room: 4H1848-1 Type: ADM IN Attending Dr: Mary Jane Hanna MD Copies to: MD Leah Marin APRN Marc Naderer, MD~ HPI DATE OF EXAMINATION: 03/14/22 CHIEF COMPLAINT: FRANC HISTORY OF PRESENT ILLNESS: Patient is a 66-year-old male, with a PMHx of Morbid obesity, endocarditis in August of this year,atrial fibrillation, type 2 diabetes, hypertension, liver cirrhosis, anxiety and depression who wastransferred from [facility] for acute kidney injury. Patient presented with generalized weakness anddisorientation at [facility]. [...] No dysuria or retention. No headache or dizziness.No fevers [facility] [...] unless noted in the HPI or below [facility] Medical History Abdominal mass Anxiety Arthritis Back pain Cirrhosis Colonoscopy planned Deviated nasal septum Diabetes mellitus, type 2 Eczema History of left heart catheterization Pneumonia Surgical History History of cholecystectomy History of hydrocelectomy History of lithotripsy History of nasal surgery Family History Mother Cancer Social History Smoking Status: Never smoker Substance Use Type: None Social History Comments: Lives in [facility] Medications and Allergies Allergies metformin Adverse [...] plan of care and confirmed the resident's/internal medicine veterinary technician/medical student's dictation/written note. Patient is a 66-year-old male with multiple medical problems including obesity/liver cirrhosis/type2 diabetes mellitus who was transferred to us from a different facility after he initially presented there due to generalized weakness abdomen on for couple days, the patient stated that he has not been eating or drinking for a while and he felt weak over the other hospital the patient was found tohave acute on chronic kidney disease/hyperglycemia without DKA and the patient was also found to bepositive for COVID. *Patient is being admitted to [...] by Mary Jane Hanna MD> 03/14/22 0640 [facility] Work Phone: 1(319) [phone] Progress note Author Lupe Hernandez [facility] April 09, 2022 3:32pmNote Date/TimeAugust 2021 1:08pmJohn [place] [id number] Hospitalist Progress Note Signed with Muna Patient: Evelin Patterson MR#: [id number] : 1955 Acct:[id number] Age/Sex: 66 / M Adm Date: 2 Loc: 3T Room: 2A6867-0 Type: DIS INOo Attending Dr: Lupe Hernandez MD Copies to: ~ ADDENDUM1 Patient was personally seen by me on the day of encounter, reviewed his history and performed long elements of exam and formulated the plan of care and confirmedthe residents note below. Unfortunately patient has been denied by insurance for [facility] facility after peer to peer.He will be discharged home with home health care. Stronglyencouraged for outpatient sleep study andfollow-up with hematology/oncology regarding monoclonal gammopathy. Dose of [...] to thrive, paroxysmal A. fib, CKD 3, kwz-ixfntbu-opdvlnxjl diabetes, CHF is being monitored on the floor while a [id number] was had with regards to the patient's discharge to a skillednursing facility. Insurance company has denied this coverage and patient will unfortunately have mayela discharged home. Patient states that he is [...] saturations in the mid to low 90s. Hestates that he has significant dyspnea performing his [...] abdomen. Obese. No distention. No rebound, guarding, organomegalynoted. Pickwickian habitus. Neurological exam: Moves all extremities without difficulty. Is slightly decreased sensation to thebottom of his feet bilaterally consistent with his [...] 04/08/22 20:53 Atorvastatin 40 Mg Tablet PO 08/23/23 21:59 40 mg HS JOSIANE Administration Guaifenesin/Dextromethorphan [...] nasal cannula oxygen to use at home. Hedoes not feel that he is up to his functional baseline however unfortunately his insurance company will not cover any rehab stay. Patient expresses disappointment in this decision. Patient states that he is still having significant neuropathic pain in his feet with difficulty performing his ADLs. Occupational Therapy and physical therapy both agreed the patient would do [facility] at [facility]. Documented By: Allen Perez DO, RES 2 1302 Signed By: <Electronically signed by DO TAMMIE Perez> 04/09/22 1308 <Electronically signed by Lupe Hernandez MD> 04/09/22 1531 [facility] Work Phone: Discharge summary Author Luke Moran [facility] April 07, 2022 4:16pmNote Date/TimeAugust 2021 10:[address] [address] Discharge Summary Signed with Addenda Patient: Evelin Patterson MR#: [id number] : 1955 Acct:[id number] Age/Sex: 66 / M Adm Date: 2 Loc: 3T Room: 2J8487-[address]: Luke Moran MD Copies to: [...] discharged home in stable condition to a [facility] facility. Medical therapy was adjusted as noted [...] 10:24: POC Glucose 271 04/03/22 07:34: Free Rosita LC, Quant 93.9 H, Free Lambda LC, Quant 61.6 H, Free Rosita/Lambda Ratio 1.52 Exam Physical Exam Vital Signs: [...] Instructions: Sliding Scale ACHS Other Ambulatory Orders: COFFEE GROWER polysom procedure (Routine) Timeframe: 3 Weeks Location: Determined by Patient Ordered By: Luke Moran Follow Up: [facility] [Outside] ([facility] or Central Scheduling will call you to arrange date/time for sleep study. ) Documented By: Luke Moran MD 04/07/22 0959 Signed By: <Electronically signed by Luke Moran MD> 04/07/22 1610 [facility] Work Phone: Evaluation + Plan note No data available for this section [facility] Evaluation note* Diagnosis Onset Date Resolution Status FRANC (acute kidney injury) acuteChronic kidney disease, stage III (moderate)acuteCOVIDacuteDiabetesacute HyperglycemiaacuteHypertensionacuteHyponatremiaacuteAbrasion of elbowacuteCHF (congestive heart failure)acuteDiabetes mellitus, type 2acuteFailure to thrive acuteFallacuteHypergammaglobulinemiaacuteHypothyroidismacuteHypoxemiaacuteMorbid obesity due to excess caloriesacuteObstructive sleep apneaacuteUnable to care for selfacute [facility] Work Phone: Evaluation note* Diagnosis Hypotension, unspecified hypotension type- Primary Fall, initial encounter Refusal of treatment Surgical or other procedure not carried out because of patient's decision documented in this encounter [facility]No [facility] information available[facility] Work Phone: Evaluation note* Diagnosis Primary osteoarthritis of both knees- Primary Seasonal allergic rhinitis due to pollen Dermatophytosis of nail- Primary Dystrophic nail Other specified disease of nail Diabetic polyneuropathy associated with type 2 diabetes mellitus ([facility]) Type II diabetes mellitus with peripheral circulatory disorder ([facility]) Type II or unspecified type diabetes mellitus with peripheral circulatory disorders, not stated as uncontrolled Encounter for long-term (current) use of insulin ([facility]) Encounter for long-term (current) use of insulin documented in this encounter [facility]* Diagnosis Primary osteoarthritis of both knees- Primary Seasonal allergic rhinitis due to pollen Diabetic polyneuropathy associated with type 2 diabetes mellitus (HCC)- Primary Type II diabetes mellitus with peripheral circulatory disorder (HCC) Type II or unspecified type diabetes mellitus with peripheral circulatory disorders, not stated as uncontrolled Encounter for long-term (current) use of insulin ([facility]) Encounter for long-term (current) use of insulin documented in this encounter [facility] note* Diagnosis Primary osteoarthritis of both knees- Primary Seasonal allergic rhinitis due to pollen Age-related nuclear cataract of both eyes- Primary 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) 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 associated with type 2 diabetes mellitus (HCC) documented in this encounter [facility]* Diagnosis Primary osteoarthritis of both [...] use of insulin documented in this encounter [facility]* Diagnosis Primary osteoarthritis of both knees- Primary Seasonal allergic rhinitis due to pollen 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)- Primary documented in this encounter [facility]* Diagnosis Primary osteoarthritis of both knees- Primary Seasonal allergic rhinitis due to pollen 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)- Primary 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 associated with type 2 diabetes mellitus (HCC) documented in this encounter [facility]* Diagnosis Onset Date Resolution Status Admit Date Suicidal ideations acuteOctober 2024 1:26pm [facility] Work Phone: Hospital Discharge instructions No data available for this section [facility] Discharge instructionsAmbulatory Orders* Initiate Home Health Time Frame: 04/09/22, Location: Determined By Patient Additional Instructions Please wear home oxygen at 2l at all times. HOME HEALTH TO MANAGE: Nursing/PT/OT/Aide/Income Tax Investigator to eval and treat Monitor VS per protocol Maintain home oxygen at 2l continuous *Oxygen therapy is new, educate patient on Monitor Respiratory assessment Assist with medication management and provide medication education Assist with glucose control Skin care TID: *Theraworx protect to bilateral groin and abdominal fold redness. *Educate patient on Provide education on high risk fall precautions [facility] Work Phone: Hospital Discharge instructions Additional Instructions If your symptoms return/worsen or you develop any further concerns or symptoms please see your doctor or return to the emergency department immediately.[facility] Work Phone: Progress note No data available for this section [facility] Progress note Author Sarah Osuna [facility] March 16, 2022 12:40pmNote Date/TimeAugust 2021 12:36pmJohn [place] [id number] Nephrology Progress Note Signed Patient: Evelin Patterson MR#: [id number] : 1955 Acct:[id number] Age/Sex: 66 / M Adm Date: 2 Loc: Room: [address] [place] [address] Type: ADM IN Attending Dr: Xin Phan MD Copies to: ~ Date of Service: 03/16/2022 Subjective Subjective Narrative: This is 66-year-old male patient with a past medical history of morbid obesity, endocarditis, paroxysmal A. fib, diabetes type 2, anxiety and depression and chronic kidney disease stage III. Patient presented to [facility] with feeling weak and disoriented [...] blood pressure was in the 80s at [facility]. Patient was given IV fluid [...] nasal cannula 2 L. Denied nauseavomiting or worseningbreathing. No chest pain Denies urinary obstructive symptoms. [...] 5 Mg Tablet) 5 mg PO DAILY [facility] Stop: 03/15/23 15:59 Last Admin: 03/16/22 [...] Units/3 Ml Insuln.Pen) 0 units SUBCUT TID.WM.HS [facility]; Protocol Stop: 03/14/23 07:59 Last Admin: 03/16/22 11:57 Dose: 8 units Insulin Detemir (Insulin Detemir 300 Units/3 Ml Insuln.Pen) 40 units SUBCUT DAILY.WITH.BKFAST JOSIANE Stop: 03/16/23 07:59 Last Admin: 03/16/22 08:10 Dose: 40 units Zinc Sulfate (Zinc Sulfate 220 Mg Capsule) 220 mg PO DAILY [facility] Stop: 03/14/23 08:59 Last Admin: 03/16/22 [...] more than 400. Patient also on dexamethasone forCOVID which is likely contributing to hyperglycemia. Patient is on insulin to control blood glucoselevel as directed by the primary service (5) COVID: Assessment/Problem Details: Patient tested positive for COVID-19 virus. He was slightly hypoxic. On nasal cannula 2 L/min. Onlyon dexamethasone. He is not candidate for remdesivir [...] nephrology standpoint. Please resume home previous blood pressuremedications isosorbide mononitrate and lisinopril at discharge . Amlodipine can be stopped Call if any question Documented By: Sarah Osuna MD 03/16/22 1234 Signed By: <Electronically signed by Sarah Osuna MD> 03/16/22 1240 [facility] Work Phone: Progress note Author Luke Moran [facility] April 03, 2022 2:05pmNote Date/TimeAugust 2021 2:05pm[place] [address] Hospitalist Progress Note Signed Patient: Evelin Patterson MR#: [id number] : 1955 Acct:[id number] Age/Sex: 66 / M Adm Date: 2 Loc: Room: [address] [place] [address] Type: ADM INOo Attending Dr: Luke Moran [...] the past. Likely secondary to [place], but Isee no serological studies for hepatitis B and [...] signed by Luke Moran MD> 04/03/22 1405 [facility] Work Phone: Progress note Author Luke Moran [facility] April 04, 2022 4:25pmNote Date/TimeAugust 2021 4:25pm[place] [address] Hospitalist Progress Note Signed Patient: Evelin Patterson MR#: [id number] : 1955 Acct:[id number] Age/Sex: 66 / M Adm Date: 2 Loc: Room: [address] [place] [address] Type: ADM INOo Attending Dr: Luke Moran [...] III BMI 51 Cirrhosis likely secondary to [place] Diabetes mellitus type 2 Anxiety disorder Hypertension [...] Flush Documented By: Luke Moran MD 04/04/22 1629 Signed By: <Electronically signed by Luke Moran MD> 04/04/22 1625 [facility] Work Phone: Progress note Author Luke Moran [facility] April 06, 2022 2:50pmNote Date/TimeAugust 2021 2:50pmJohn [place] [id number] Hospitalist Progress Note Signed Patient: Evelin Patterson MR#: [id number] : 1955 Acct:[id number] Age/Sex: 66 / M Adm Date: 2 Loc: 3T Room: [address] [place] [address] Type: ADM INOo Attending Dr: Luke Moran [...] again CPAP at night and whenever asleep. Wewill try to fit him with an appropriate [...] signed by Luke Moran MD> 04/06/22 1450 [facility] Work Phone: Progress note Author Lupe Hernandez [facility] April 08, 2022 1:38pmNote Date/TimeAugust 2021 1:38pm[place] [address] Hospitalist Progress Note Signed Patient: Evelin Patterson MR#: [id number] : 1955 Acct:[id number] Age/Sex: 66 / M Adm Date: 2 Loc: 3T Room: [address] [place] [address] Type: ADM INOo Attending Dr: Lupe Hernandez MD Copies to: ~ Date of Service: 04/08/2022 Subjective Subjective Narrative: Patient examined at bedside and mentioned not sleeping well last night and complaining of nausea. He took his oxygen off as it was bothering him with pulse ox of 89%. He was placed back on 2 and halfliter oxygen. He is not using CPAP at [...] Hypothyroidism: Plan Patient currently awaiting [facility] to [facility]. Remains in normal sinus rhythm. He has not been able to tolerate CPAP. He will benefit from sleep study as an outpatient. Dose of levothyroxine has been increased dueto elevated TSH. Patient will require outpatient hematology/oncology consultation regarding gammopathy. Continue basal insulin sliding scale coverage. Continue lisinopril, sertraline, ropinirole Xarelto for DVT prophylaxis Documented By: Lupe Hernandez MD 04/08/22 133 Signed By: <Electronically signed by Lupe Hernandez MD> 04/08/22 1334 [facility] Work Phone: Reason for referral (narrative)No reason for referral information availableOhio State East Hospital [facility]tr Work Phone: Chief Complaint and Reason for Visit Chief Complaint covid +,franc,hypergly cemia fallReason for VisitAKI (acute kidney injury) Chronic kidney disease, stage III (moderate) COVID Diabetes Hyperglycemia Hypertension Hyponatremia Abrasion of elbow CHF (congestive heart failure) Diabetes mellitus, type 2 Failure to thrive Fall Hypergammaglobulinemia Hypothyroidism Hypoxemia Morbid obesity due to excess calories Obstructive sleep apnea Unable to care for self Chief Complaint covid +,franc,hypergly cemia fall weaknessReason for VisitAKI (acute kidney injury) Chronic kidney disease, stage III (moderate) COVID [...] 11:10am Unknown March 25, 2025 2: 04pm Chief Complaint Admit Date S22.070D M51.372 M43.16 February 25, 2025 11:10am Unknown March 25, 2025 2: 04pm Multiple complaints May 16, 2025 1: 26pm Reason for Visit Admit Date Suicidal ideations May 16, 2025 1: 26pm Chief Complaint Admit Date Unknown March 25, [...] Suicidal ideations May 16, 2025 1: 26pm Advance Directives No Advanced Directives Records Found Advance Directive Response Recorded Date/ Time Advance Directives No September 05, 2020 8:27am Summary Purpose Family History Relationship Condition Age at Onset Recorded Date/T christian mother Unknown HypertensionUnknownMalignant neoplasm of lungUnknownbrotherAcquired immunodeficiency syndromeUnknown Relationship Condition Age at Onset Recorded Date/T christian mother Malignant neoplasm Unknown motherDeceasedUnknownHypertensionUnknownNo Family History Records Found Additional Source Comments Care Team (unrecognized sect ion and content) Team Status: Inactive Member Role Status Dates Ayden Freeman MD Primary Care Provider Active Chung Marin ProviderActiveSarah Osuna MDOther Provider ActiveBrenda Wilson ProviderActive Team Status: Inactive Member Role Status Dates Ayden Freeman MD Primary Care Provider Active Jair Gabriel DOEmergency ProviderActiveAndrochelle Moran MDAdmit Provider ActiveBrenda Bro ProviderActive Team Status: Active Member Role Status Dates Ayden Freeman MD Primary Care Provider Active Team Status: Inactive Member Role Status Dates Ramesh Byrd DO Emergency Provider Active Braxton Mcadams Care ProviderActive Team Status: Active Member Role Status Dates GURVINDER DallasC Primary Care Provider Active Team Status: Inactive Member Role Status Dates Margot Singh MD Attending Provider Active Start: November 16, 2024 End: November 16, 2024Arline Lazar NP-CPrimary Care ProviderActiveStart: November 16, 2024 End: November 16, 2024 Team Status: Inactive Member Role Status Dates Arline Lazar NP-C Primary Care Provider Active Start: December 17, 2024 End: December 17, 2024JOSE JUAN Pereira-Marie ProviderActiveStart: December 17, 2024 End: December 17, 2024Team MemberRelationshipSpecialtyStart DateEnd Date Unallocated, Noms MD Francisco [address] [place] [address] PCP - GeneralFamily Medicine10/11/24Team MemberRelationshipSpecialtyStart DateEnd Date Ezio Amado MD [address] [place] [phone] PCP - GeneralFamily Medicine01/19/25 Arline Lazar MD [address] [place] [address] Nurse PractitionerFamily Medicine01/19/25Team MemberRelationshipSpecialtyStart DateEnd Date Ezio Amado MD [address] [place] [phone] PCP - GeneralFamily Medicine01/19/25 Arline Lazar MD [address] [place] [address] Nurse PractitionerFamily Medicine01/19/25Team MemberRelationshipSpecialtyStart DateEnd Date Ezio Amado MD [address] [place] [phone] PCP - GeneralFamily Medicine01/19/25 Arline Lazar MD [address] [place] [address] Nurse PractitionerFamily Medicine01/19/25 Team Status: Inactive Member Role Status Dates Arline Lazar , ROLL TABLE OPERATOR-C Primary Care Provider Active Start: December 27, 2024 End: December 27, 2024JOSE JUAN Pereira-Marie ProviderActiveStart: December 27, 2024 End: December 27, 2024 Team Status: Inactive Member Role Status Dates Arline Lazar ROLL TABLE OPERATOR-C Primary Care Provider Active Start: February 25, 2025 End: February 25, 2025Setheresa Óscar Samantha KRISTOPHERttending ProviderActiveStart: February 25, 2025 End: February 25, 2025Team MemberRelationshipSpecialtyStart DateEnd Ezio Amado MD [address] [place] [phone] PCP - GeneralFamily Medicine01/19/25 Arline Lazar MD [address] [place], [place] [phone] [facility] Medicine01/19/25Team MemberRelationshipSpecialtyStart DateEnd Ezio Amado MD [address] [place] [address] [phone] PCP - GeneralFamily Medicine01/19/25 Arline Lazar MD [address] [place] [address] [facility] Medicine01/19/25Team MemberRelationshipSpecialtyStart DateEnd Ezio Amado MD [address] [place] [phone] PCP - GeneralFamily Medicine01/19/25 Arline Lazar MD [address] [facility] [address] Nurse PractitionerFamily Medicine01/19/25Team MemberRelationshipSpecialtyStart End Ezio Amado MD [address] [facility] [place] [phone] PCP - GeneralFamily Medicine01/19/25 Arline Lazar MD [address] [place] [address], [place] [address] [facility] Medicine01/19/25Team MemberRelationshipSpecialtyStart End Ezio Amado MD [address] [place] [address], [place] [phone] PCP - GeneralFamily Medicine01/19/25 Arline Lazar MD [address] [place] [address] [facility] Medicine01/19/25 Team Status: Inactive Member Role Status Dates Arline Lazar NP-C Attending Provider Active Start: March 25, 2025 End: March 25, 2025Team MemberRelationshipSpecialtyStart End Ezio Amado MD [address] [place] [address], [place] [phone] PCP - GeneralFamily Medicine01/19/25 Arline Lazar MD [facility] [place] [address] [facility] Medicine01/19/25Team MemberRelationshipSpecialtyStart End Ezio Amado MD [address] [place] [phone] PCP - [facility] Medicine01/19/25 Arline Lazar MD [address] [place] [address] [facility] Medicine01/19/25 Team Status: Active Member Role Status Dates Arline Lazar ROLL TABLE OPERATOR-C Primary Care Provider Active Start: May 16, 2025 Geni Ching ProviderActiveStart: May 16, 2025 Chung Schuler ProviderActiveStart: May 16, 2025 Brenda Schuler ProviderActiveStart: May 16, 2025 Team Status: Active Member Role/Relationship Status Dates Arline Lazar ROLL TABLE OPERATOR-C Primary Care Provider Active Team Status: Inactive Member Role/Relationship Status Dates Alrine Lazar ROLL TABLE OPERATOR-C Attending Provider Active Start: March 25, 2025 End: March 25, 2025 Team Status: Active Member Role/Relationship Status Dates Arline Lazar ROLL TABLE OPERATOR-C Primary Care Provider Active Start: May 16, 2025 Geni Ching ProviderActiveStart: May 16, 2025 Chung Schuler ProviderActiveStart: May 16, 2025 Niurka Schuler ProviderActiveStart: May 16, 2025 Brenda Quiros ProviderActiveStart: May 16, 2025 Niurka Quiros ProviderActiveStart: May 16, 2025 Maria C Salas [...] May 16, 2025 End: May 27, 2025Piero Setih DOOther ProviderActiveStart: May 16, 2025 End: May 27ndrochelle Moran MDOther ProviderActiveStart: May 16, 2025 End: May 27, 2025Rumarjorie Starkey MDOther ProviderActiveStart: May 16, 2025 End: May 27, 2025Micclarence Palm DOOther ProviderActiveStart: May 16, 2025 End: May 27, 2025NaNiurka Salgado ProviderActiveStart: May 16, 2025 End: May 27, 2025LyHoward Lambher ProviderActiveStart: May 16, 2025 End: May 27, 2025Skyler Woods MDOther ProviderActiveStart: May 16, 2025 End: May 27, 2025Macaitlin Hernandez MDOther ProviderActiveStart: May 16, 2025 End: May 27, 2025Sakely Landry MDOther ProviderActiveStart: May 16, 2025 End: May 27, 2025Michaejaguar Curtis DOOther ProviderActiveStart: May 16, 2025 End: May 27, 2025Stewart Sanchez MDOther ProviderActiveStart: May 16, 2025 End: May 27, 2025EarNiurka Jean Baptiste ProviderActiveStart: May 16, 2025 End: May 27prashant Witt NP-Awildaher ProviderActiveStart: May 16, 2025 End: May 27dTrevon Woods ProviderActiveStart: May 16, 2025 End: May 27, 2025Hilario Singh MDOther ProviderActiveStart: May 16, 2025 End: May 27, 2025Pete Manzano MDOther ProviderActiveStart: May 16, 2025 End: [...] 16, 2025 End: May 27, 2025Nena Neal APRNOther ProviderActiveStart: May 16, 2025 End: May [...] May 16, 2025 End: May 27jose Enriquez APRNOther ProviderActiveStart: May 16, 2025 End: May 27, 2025Nancy Phan MDOther ProviderActiveStart: May 16, 2025 End: May 27, 2025Allen Alberto MDOther ProviderActiveStart: May 16, 2025 End: May 27, 2025Miguel Angel Soria MDOther ProviderActiveStart: May 16, 2025 End: May 27, 2025Niurka Randolph ProviderActiveStart: May 16, 2025 End: May 27, 2025Gabriella Costa APRNOther ProviderActiveStart: May 16, 2025 End: May 27, 2025Nicoletto Bolzan-Lara , APRNOther ProviderActiveStart: May 16, 2025 End: May 27, 2025Shade Viera MDOther ProviderActiveStart: May 16, 2025 End: May 27, 2025Diane Thapa RNOther ProviderActiveStart: May 16, 2025 End: May 27, 2025 Team Status: Active Member Role/Relationship Status Dates Arline Lazar , ROLL TABLE OPERATOR-C Primary Care Provider Active Start: May 23, 2025 Geni Ching ProviderActiveStart: May 23, 2025 Chung Schuler ProviderActiveStart: May 23, 2025 Juan A Garza MDOther ProviderActiveStart: May 23, 2025 Ysabel Schaefer , MARITOOther ProviderActiveStart: May 23, 2025 Garima Toussaint , MARITOOther ProviderActiveStart: May 23, 2025 Maria C Salas , MARITOOther ProviderActiveStart: May 23, 2025 Yulissa Gillette , MARITOOther ProviderActiveStart: May 23, 2025 Geeta Muir RNOther ProviderActiveStart: May 23, 2025 Bouchra Quintana , MARITOOther ProviderActiveStart: May 23, 2025 Nikolai Zelaya MDOther ProviderActiveStart: May 23, 2025 Lorin Yang DOOther ProviderActiveStart: May 23, 2025 Wolf Thao [...] ProviderActiveStart: May 23, 2025 Trish Witt , ROLL TABLE OPERATOR-COther ProviderActiveStart: May 23, 2025 Angie Cannon , [...] , APRNOther ProviderActiveStart: May 23, 2025 Nancy Phna MDOther ProviderActiveStart: May 23, 2025 Allen Alberto MDOther ProviderActiveStart: May 23, 2025 Miguel Angel Soria MDOther ProviderActiveStart: May 23, 2025 Gera Kidd MDOther ProviderActiveStart: May 23, 2025 Trevon Salazar ProviderActiveStart: May 23, 2025 Rosanne Harris APRNOt ProviderActiveStart: May 23, 2025 Shade Viera MDOther ProviderActiveStart: May 23, 2025 Diane Thapa RNOther ProviderActiveStart: May 23, 2025 Thanh Mazariegos MDAttending ProviderActiveStart: May 23, 2025 (unrecognized sect ion and content) No Status Records FoundNo Status Records FoundNo Status Records FoundNo Status Records FoundNo Status Records FoundNo Status Records Found INFORMATION SOURCE (unrecogn ized section and content) DATE CREATED AUTHOR 05/08/2022 [facility] DATE CREATED AUTHOR AUTHOR'S ORGANIZ ATION 12/23/2022 [facility] DATE CREATED AUTHOR AUTHOR'S ORGANIZ ATION 04/27/2025 [facility] DATE CREATED AUTHOR AUTHOR'S ORGANIZ ATION 05/04/2025 [facility] DATE CREATED AUTHOR AUTHOR'S ORGANIZ ATION 05/18/2025 [facility] DATE CREATED AUTHOR AUTHOR'S ORGANIZ ATION 06/02/2025 [facility] Reason for Visit (unrecogniz ed section and content) ReasonCommentsFallReasonCommentsDiabetic ShoesPt is here today requesting to start the diabetic shoe process.ReasonCommentsDiabetic ShoesEstablished patient presents today to be measured for diabetic shoes.ReasonCommentsCataractReason CommentsDiabetic ShoesEstablished patient presents today for diabetic shoe pickup. [address] Olivera shoes and 3 pairof heat molded inserts were dispensed. Patient wishes to wear shoes out today, patient understands that he cannot return or exchange shoes once worn outside.ReasonCommentsRetinal Injection Goals (unrecognized section and content) Type Treatment Intervention Code Status: Full Code Goals may be documented in an alternate section FOR RECORDS PERTAINING TO PATIENTS [...] ON THE PRIMARY CLINICAL RECORDS. [facility]. provides no warranty or guarantee of the accuracy or completeness of information in this document.
--- OUTSIDE RECORDS SUMMARY | 2025-06-06 15:02 | XMS_ITS | Patient Health Record ---
Author Organization [facility] Address [address] [place] [address] Care Team Providers Care Veneer Department Manager Name Role Phone Arline Rouse Primary Care Provider UnavailCarlos Magallanes Unavailable [phone] TachoJuanasimona Unavailable [phone] xxLottie Washington Unavailable Allergies Allergen (clinical drug ingredient) Drug/Non Drug Allergy documented on EMR Reaction Allergy Type Onset Date Status compozine (uncoded)anxietyAllergyActivemetforminmetFORMINGI upsetDrug Allergy Active Reason For Referral Reason APPROVED............ ........................NOT SCHEDULED...................................[facility] MRI LUMBAR TO BE DONE AT [facility] Diagnosis 1 Compression fracture of T10 vertebra with routine healing, subsequent encounter (S22.070D) Diagnosis 2 Spondylolisthesis of lumbar region (M43.16) Referral Organization [facility] Referring Provider First Name Juanasimona Referring Provider Last Name St Zhou Referring Provider Speciality Orthopedic Surgery Referred Organization [facility] Central Scheduling Referred Address [address] [place], [place],[address], Procedure 1 MRI Lumbar Spine w/o Dye ([id number]) General Notes Sravani Pichardo 2024 12:00:30 PM >, Gabriella Merino 10/15/2024 12:02:57 PM > WAITING ON TODAY'S OFFICE NOTE, Gabriella Merino 10/18/2024 10:12:51 AM > WAITING ON 10/16 OFFICE NOTE, Gabriella Merino 10/20/2024 02:45:19 PM > ANTHEM ACTIVE AND EFFECTIVE 10/09/24 PER AIM. AUTHORIZATION # [id number] APPROVED AND VALID 10/20/24-01/17/25 PER AIM. SCANNED INTO CHART AND FAXED TO JANE LEW., Sravani Pichardo 10/21/2024 10:46:43 AM >[facility] DOES NOT DO MRI WITH SEDATION PER PATIENT, SO WILL NEED TO CHANGE LOCATION TO [facility] IN [place]. SPOKE WITH [facility] AND THEY NEED TO FAIL TEST WITH VERSED FIRST THEN WILL DO SEDATION, Gabriella Merino 10/22/2024 07:23:10 AM > I'M CONFUSED REFERRAL DOESN'T SAY ANYTHING ABOUT SEDATION AND AUTHORIZATION WASN'T OBTAINED FOR SEDATION. DO I NEED TO GET SEDATION PRECERTED THAT REQUIRES A SEPARATE AUTHORIZATION THROUGH [employer]., Sravani Pichardo 10/22/2024 01:47:18 PM >THERE IS A REFERRAL FOR MRI AND REFERRAL FOR SEDATION IN THE CHART, AND YES I NEED SEDATION, Gabriella Merino 10/22/2024 01:54:57 PM > AUTH UPDATED TO [facility]. SCANNED INTO CHART AND FAXED TO THEM. IF THEY END UP DOING SEDATION THEY WILL HAVE TO OBTAIN AUTHORIZATION., Brigitte Heredia 10/25/2024 08:40:54 AM > order faxed Referral Priority Routine Reason APPROVED............ ......................NOT SCHEDULED..............................[facility] LUMBAR CT MEYLOGRAM TO BE DONE AT [facility] Diagnosis 1 Compression fracture of T10 vertebra with routine healing, subsequent encounter (S22.070D) Diagnosis 2 Spondylolisthesis of lumbar region (M43.16) Referral Organization [facility] Referring Provider First Name Margot Referring Provider Last Name St Zhou Referring Provider Speciality Orthopedic Surgery Referred Organization [facility] Central Scheduling Referred Address [address], [place],[address],[place] Procedure [address] lumbar spine; W/ contrast material (02767) General Notes Sravani Pichardo 2024 08:29:42 AM >Wilber Kayla 12/30/2024 09:31:17 AM > ANTHEM ACTIVE AND EFFECTIVE 10/09/24 PER AIM. AUTHORIZATION # [id number] APPROVED AND VALID 12/30/24-03/29/25 PER AIM. SCANNED INTO CHART AND FAXED TO JANE LEW.Giovanna Sara 12/30/2024 10:51:28 AM > faxed, Sravani Pichardo 02/04/2025 10:29:13 AM >LOCATION CHANGE TO [facility] PLEASE, Sravani Pichardo 02/04/2025 10:30:11 AM >Wilber Kayla 02/04/2025 10:41:01 AM > AUTHORIZATION UPDATED AND FAXED TO [facility].Giovanna Sara 02/07/2025 09:54:04 AM >faxed Referral Priority Routine Medications Medication SIG (Take, Route, Frequency, Duration) Notes Start Date End Date Status Eliquis ActiveSupplementsCream for yeast infectionActiveBenadrylActiveNexIUMActive SynthroidActivegabapentinActivelisinoprilActiveLantusActiveropinirole hcl 0.5 MG TAKE 1 TABLET EVERY DAY AT BEDTIME for 90 DaysActiveArthritis medicationActive Social History Tobacco Use: Social History Observation Description Date Details (start date - stop date) Never Smoker NA - NA AUDIT-C (Standard) Question Answer Notes Did you have a drink containing alcohol in the p ast year? No Lzqlgn5UfurljgfuovhfgAowqkzquEfgkzwx Control (Standard) Question Answer Notes Tobacco use: Nonsmoker Problems Problem Type SNOMED Code ICD Code Onset Dates Problem Status W/U Status Risk Notes Problem Claustrophobia (F40.240) [id number] of lumbar region (M43.16) [id number] of fall (Z91.81)ActiveconfirmedProblem [id number] fracture of T10 vertebra with routine healing, subsequent encounter (S22.070D)[id number] of intervertebral disc of lumbosacral region with discogenic back pain and lower extremity pain (M51.372)Activeconfirmed Vital Signs Height 5 ft 10 in in 10/15/2024 Einpof736 lbs5BMI45.9110/15/2024 Encounters Encounter Location Date Provider Diagnosis [facility] Office [address] [place] [address] [place] [address] 10/15/2024 [place] Compression fracture of T10 vertebra with routine healing, subsequent encounter S22.070D ; Spondylolisthesis of lumbar region M43.16 ; 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 back pain and lower extremity pain M51.372 and History of fall Z91.81 [facility] [address] [place] [address] 12/30/2024 Selvon Tacho Compression fracture of T10 vertebra with routine healing, subsequent encounter S22.070D ; 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 back pain and lower extremity pain M51.372 and Spondylolisthesis of lumbar region M43.16 Assessments Encounter Date Diagnosis (ICD Code) Assessment Notes Treatment Notes Treatment Clinical Notes Section Notes 10/15/2024 Spondylolisthesis of lumbar frankie on (ICD-10 - M43.16) 1. Chronic vertebral T10 compression fracture 2. L3 on 4, L4 on 5 spondylolisthesis 3. L5-S1 DDD/radiculopathy 10/15/2024ompression fracture of T10 vertebra with routine healing, subsequent encounter (ICD-10 - S22.070D) 1. Chronic vertebral T10 compression fracture 2. L3 on 4, L4 on 5 spondylolisthesis 3. L5-S1 DDD/radiculopathy 12/30/2024ompression fracture of T10 vertebra with routine healing, subsequent encounter (ICD-10 - S22.070D)12/30/2024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 back pain and lower extremity pain (ICD-10 - M51.372)10/15/2024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 back pain and lower extremity pain (ICD-10 - M51.372) 1. Chronic vertebral T10 compression fracture 2. L3 on 4, L4 on 5 spondylolisthesis 3. L5-S1 DDD/radiculopathy 12/30/2024Spondylolisthesis of lumbar region (ICD-10 - M43.16)10/15/2024History of fall (ICD-10 - Z91.81) 1. Chronic vertebral T10 compression fracture 2. L3 on 4, L4 on 5 spondylolisthesis 3. L5-S1 DDD/radiculopathy 10/15/2024Other For the patient's low back pain with radicular pain into his left buttock and we will order an MRI of the lumbar spine. The patient's T10 compression fracture is over 6 months old at this point and Nadeem not believe is the cause of his back pain with radicular symptoms. Patient is severely claustrophobic and will require sedation for his MRI. We will see the patient back in the office once imagingis obtained to review and offer further recommendations. The patient is very much in agreement withthe treatment and/or diagnostic plan set forth and all questions were answered to the patient's satisfaction. Thanks once again. If we can be of further service to your patients with disorders of the spine, cervical, thoracic, or lumbar, please do not hesitate to contact Dr. Lema. Best regards, 1. Chronic vertebral T10 compression fracture 2. L3 on 4, L4 on 5 spondylolisthesis 3. L5-S1 DDD/radiculopathy Plan Of Treatment Pending Test Test Name Order Date Lumbar spine 2v flex and ext - 51594 02/2025 CT Myelogram - Lumbar Spine 12/30/2024 Sedation per Radiologist orders for diag nostic procedure 10/15/2024 MRI : Lumbosacral Spine W/O Contrast - 7 8 10/15/2024 Insurance Providers Payer Name Payer Address Payer Phone Subscriber Number Group Number Insured Name Patient Relationship to Insured Coverage Start Date Coverage End Date Medicare [employer] [address] [place] [address] [id number] EVELIN CAMACHO Self - [facility] the [facility] MedicaidP [address] [place] [phone] Pasha CAMACHO - patient is the [id number] 2024 Medical (General) History Medical History History ICD Code High Blood Pressure Abnormal Heart RhythmBronchitisLiver DiseaseDiabetesThyroid diseaseStomach ulcersGastric RefluxIrritable bowel syndromeKidney stonesAnemiaAnxietyDepression Seen a PsychiatristDrug AllergiesSurgical History Surgery Date(Month/Year) Heart cath
--- OUTSIDE RECORDS SUMMARY | 2025-06-06 15:02 | XMS_ITS | Clinical Summary ---
Author Organization [facility] Address [address] [place] [address] Care Team Providers Care Spring Coiler Hand Name Role Phone Arline Rouse MD Unavailable [phone] Ezio Amado MD Primary Care Provider [phone] Allergies Active AllergyReactionsCriticalityNoted HgjjHklkghsbQvuocdepjEtdjjan54/03/2022 Other Reaction(s): Flatulence Bloating and gas Pejftyczqeyi67/21/2024 Other Reaction(s): stomach problems ProchlorperazineAnxiety,XlxhcIpo58/02/2022 flatulence Medications MedicationSigDispense QuantityRefillsLast FilledStart DateEnd DateStatus sertraline (Zoloft) 100 MG tablet Indications:Depression, unspecified depression typeTAKE 1 TABLET BY MOUTH DAILY 90 tablet 4Active atorvastatin (Lipitor) 40 MG tablet Active isosorbide mononitrate ER (Imdur) 30 MG 24 hr tablet Indications:CAD in [place] arteryTake 1 tablet (30 mg) by mouth Daily 30 tablet 1104//[id number]/6Active lisinopril 40 MG tablet Indications:Essential hypertension, benignTake 1 tablet (40 mg) by mouth Daily 30 tablet ctive gabapentin (Neurontin) 100 MG capsule Indications:DDD (degenerative disc disease), cervicalTake 1 capsule (100 mg) by mouth in the morning and 1 capsule (100 mg) before bedtime. 60 capsule ctive esomeprazole (NexIUM) [address] capsule Indications:Gastroesophageal reflux disease without esophagitisTAKE 1 CAPSULE EVERY DAY 90 capsule 305/01/2024Active rOPINIRole (Requip) 0.5 MG tablet Indications:Restless leg syndromeTAKE 1 TABLET EVERY DAY AT BEDTIME 90 tablet ctive nystatin (Mycostatin) cream Indications:Skin candidiasisApply topically 2 (two) times a day 30 g ctive insulin glargine (Lantus SoloStar) 100 UNIT/ML pen Indications:Type 2 diabetes mellitus with hyperglycemia, with long-term current use of insulin (HCC)INJECT 40 UNITS SUBCUTANEOUSLY EVERY DAY 5 each ctive insulin pen needle (B-D UF III MINI PEN NEEDLES) 31G x 5 mm [facility] Indications:Type 2 diabetes mellitus with hyperglycemia, with long-term current use of insulin (HCC)USE 1 EACH DAY DIRECTED 100 each ctive fluticasone (Flonase) 50 MCG/ACT nasal spray Indications:Seasonal allergic rhinitis due to pollenUSE 2 SPRAYS IN EACH NOSTRIL IN MORNING.SHAKE GENTLY.BEFORE FIRST USE,PRIME PUMP.AFTER USE,CLEAN TIP AND REPLACE CAP. 16 mL 5Active Eliquis 5 MG tablet 5Active carvedilol (Coreg) 3.125 MG tablet Oral for 90 DaysActive Banophen 25 MG capsule TAKE 1 - 2 CAPSULES BY MOUTH 4 TIMES A DAY FOR RPFKZCZ6912/21/2024tive levothyroxine (Synthroid, Levoxyl) 200 MCG tablet Take 200 mcg by mouth Daily5Active liothyronine (Cytomel) 5 MCG tablet TAKE 1 TABLET BY MOUTH EVERY DAY ON EMPTY STOMACH FOR 30 DAYS5Active Active Problems ProblemNoted DateDiagnosed DateAge-related nuclear cataract of both eyes 03/08/2025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 ktfdhnmi81/29/2025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 associated with type 2 diabetes /29/2025Essential hypertension, bcjfgu5709/16/2023 Primary osteoarthritis of both knees09/16/2023 Assessment & Plan (09/16/2023 11:03 AM EST): Increased pain and swelling for months and x-ray with OA. Start prednisone. Use percocet PRN. [facility] for evaluation. Patient declined PT. CAD in [place] wdvsox2609/16/2023irrhosis of liver without kbavbqy1809/16/2023OPD (chronic obstructive pulmonary disease)09/16/20233928Ftuqfdkaboxa52/06/2024 Generalized anxiety /06/2024Gastroesophageal reflux ejqapuv3209/16/2023 Sisi's hbzzmnb3609/16/2023Hyperammonemia, type III09/16/2023Insomnia 09/16/2023Lumbosacral radiculopathy due to degenerative joint disease of spine 09/16/2023Obstructive sleep apnea (adult) (pediatric)09/16/2023Type 2 diabetes mellitus with hyperglycemia, with long-term current use of cnfdshd8409/16/2023 Diabetic bssnfzfugehogu89/06/2024estless leg ivsfqiqp41/06/2024DD (degenerative disc disease), zqxtvdtu69/06/2024Seasonal allergic rhinitis due to tfzica7709/16/2023Mild nonproliferative diabetic retinopathy associated with type 2 diabetes dhnuybuh07/26/2018 Encounters DateTypeDepartmentCare NqkoSoygbtzoaww13/23/2025 2:00 PM EDTClinical Support [facility] [address] [place] [phone] Kirby Florian, DO Retinal Ipbpmxdra45/23/2025amboo flowsheet [facility] [address] [place] [phone] Kirby Florian, DO 05/03/20250823Bjmxtw23/11/2025bstract [facility] [address] [place] [phone] Carlos Burns DPM 04/21/2025Telephone [facility] [address] [place] [phone] Carlos Burns DPM No Show (Hx of No Shows)04/20/20259821Xzsjcj64/25/7455Kpczyu65/15/2025Refill [facility] [address] [place] [address] Ayden Ashford MD Type 2 diabetes mellitus with hyperglycemia, with long-term current use of insulin ([facility])03/23/2025 1:45 PM EDTClinical Support [facility] [address] [place] [address] Kirby Florian, DO Retinal Xxaxobazz50/13/2025amboo flowsheet [facility] [address] [place] [address] Kirby Florian, DO 03/23/20256196Yxipof29/31/2025 4:00 PM EDTOffice Visit [facility] [address] [place] [address] Carlos Burns DPM Diabetic polyneuropathy associated with type 2 diabetes mellitus (HCC) (Primary Dx); Type II diabetes mellitus with peripheral circulatory disorder (HCC); Encounter for long-term (current) use of insulin ([facility])03/10/2025amb flowsheet [facility] [address] [place] [address] Carlos Burns DPM 03/10/20258834Mdrsyj28/30/9860Wlxyfk33/30/2025Orders Only [facility] [address] [place] [address] Kirby Florian, 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); 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 associated with type 2 diabetes mellitus (HCC)03/08/2025 10:45 AM EDTOffice Visit [facility] [address] [place] [phone] Kirby Florian, Age-related nuclear cataract of both eyes (Primary Dx); 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); 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 associated with type 2 diabetes mellitus (HCC)5Bamboo flowsheet [facility] [address] [place] [phone] Kirby Florian, 03/08/2025Travelfrom Last 3 Months Immunizations ImmunizationAdministration DatesNext DueInfluenza, High Dose Seasonal, Preservative Free05/12/2024Influenza, Seasonal, Quadrivalent, Adjuvanted 05/06/2023Influenza, recombinant, quadrivalent, injectable, preservative free 05/11/2021,05/13/2019Influenza, seasonal, injectable, preservative free 04/24/2012Pneumococcal Conjugate PCV Family History Medical HistoryRelationNameCommentsHypertensionMotherLung cancerMotherRelation NameStatusCommentsFatherunknownDeceasedMotherDeceased Social History Tobacco UseTypesPacks/DayYears UsedDateSmoking Tobacco: NeverPassive Smoke Exposure: NeverSmokeless Tobacco: Never Tobacco Cessation:Counseling Given: No Alcohol UseStandard Drinks/WeekCommentsNever0 (1 standard drink = 0.6 oz pure alcohol)caffeine intake : more than 4 cups per daySex and Gender Information ValueDate RecordedSex Assigned at BirthNot on fileLegal DxpMzbv6810/23/2022 7:00 PM EDTGender IdentityNot on fileSexual OrientationNot on file Last Filed Vital Signs Vital SignReadingTime TakenCommentsBlood Rsevsogm342/73363 10:37 AM EST Axdxu240909/16/2023 10:37 AM CEAWpsrwncpchq81.9 ??C (96.6 ??F)09/16/2023 10:37 AM ESTRespiratory Rate--Oxygen Obzbcjfute03%09/16/2023 10:37 AM ESTInhaled Oxygen Concentration--Cgwfcz270 kg (330 lb)03/10/2025 4:14 PM BAHHkriyv839.8 cm (5' 10 )03/10/2025 4:14 PM EDTBody Mass Index47.3507 4:14 PM EDT Plan of Treatment Not on file Procedures Procedure NamePriorityDate/TimeAssociated DiagnosisCommentsINTRAVITREAL INJECTION, PHARMACOLOGIC AGENT - OD - RIGHT OPKAhcehom32/23/2025 3:21 PM EDT 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) INTRAVITREAL INJECTION, PHARMACOLOGIC AGENT - OS - LEFT TSIZtrdmqg67/23/2025 3:17 PM EDT 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 associated with type 2 diabetes mellitus (HCC) OCT, RETINA - OU - BOTH ZYXGIsaoopv78/23/2025 2:00 PM EDT 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) 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 associated with type 2 diabetes mellitus (HCC) INTRAVITREAL INJECTION, PHARMACOLOGIC AGENT - OD - RIGHT GBXXpfokvq48/13/2025 2:19 PM EDT 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 3:21 PM. Confirmed correct patient, procedure, site, and patient consented. Anesthesia Topical anesthesia was used. Anesthetic medications included Lidocaine 2%, Proparacaine 0.5%. Procedure Preparation included 5% betadine to ocular surface, eyelid speculum. A 30 gauge needle was used. Injection: 1.25 mg Bevacizumab 1.25 MG/0.05ML ??Route: Intravitreal, Site: Right Eye ??[facility]: [address]-6, Lot: [id number], Expiration date: 06/28/2025 Post-op Post injection exam [...] Intravitreal injection with the prescribed antiVEGF agent. ?? With intraocular surgery, there is potential for direct retinal damage through retinal or RPE tear, or infection, with subsequent vision loss. ?? Informative Intravitreal pamphlet provided as well as an OMIC consent. ??Of course, the treatment may fail to accomplish the overall therapeutic objectives, which is to stall or decrease the amount of retinal edema / bleeding, and therefore stall or improve vision loss. Intravitreal Anti-VEGF: ??Consent was obtained and questions answered. ?? Operative eye was identified, receiving topical proparacaine, 5% betadine, and 2% xylocaine jelly. ??A lid speculum was placed and the inferotemp. injection site received additional anesthetic with a proparacaine soaked cotton swab. ??Using calipers (set at 3.5mm for pseudo and 4mm for phakic), the inferotemp. limbus was measured, sclera marked and 2 additional drops of betadine placed. ??Avoiding any talking to avoid contamination, intravitreal injection was carried out without difficulty. Any residual amount of medication was discarded appropriately. The patient tolerated the procedure well and instructed to call with increased pain, redness, decreased vision or concerns. ?? Authorizing ProviderResult TypeResult StatusJonatsilvestre Florian [facility] PROCEDURESFinal Result * Intravitreal Injection, Pharmacologic Agent - OS - Left Eye (05/03/2025 3:17 PM EDT)Anatomical RegionLateralityModalityHeadOther Narrative 05/03/2025 3:17 PM EDT Time Out 05/03/2025. 3:17 PM. Confirmed correct patient, procedure, site, and patient consented. Anesthesia Topical anesthesia was used. Anesthetic medications included Lidocaine 2%, Proparacaine 0.5%. Procedure Preparation included 5% betadine to ocular surface, eyelid speculum. Injection: 1.25 mg Bevacizumab 1.25 MG/0.05ML ??Route: Intravitreal, Site: Left Eye ??[facility]: [address]-5, Lot: [id number], Expiration date: 06/28/2025 Post-op Post injection exam [...] Intravitreal injection with the prescribed antiVEGF agent. ?? With intraocular surgery, there is potential for direct retinal damage through retinal or RPE tear, or infection, with subsequent vision loss. ?? Informative Intravitreal pamphlet provided as well as an OMIC consent. ??Of course, the treatment may fail to accomplish the overall therapeutic objectives, which is to stall or decrease the amount of retinal edema / bleeding, and therefore stall or improve vision loss. Intravitreal Anti-VEGF: ??Consent was obtained and questions answered. ?? Operative eye was identified, receiving topical proparacaine, 5% betadine, and 2% xylocaine jelly. ??A lid speculum was placed and the inferotemp. injection site received additional anesthetic with a proparacaine soaked cotton swab. ??Using calipers (set at 3.5mm for pseudo and 4mm for phakic), the inferotemp. limbus was measured, sclera marked and 2 additional drops of betadine placed. ??Avoiding any talking to avoid contamination, intravitreal injection was carried out without difficulty. Any residual amount of medication was discarded appropriately. The patient tolerated the procedure well and instructed to call with increased pain, redness, decreased vision or concerns. ?? Authorizing ProviderResult TypeResult StatusJonatsilvestre Florian [facility] PROCEDURESFinal Result * OCT, Retina - OU - Both Eyes (05/03/2025 2:00 PM EDT)Anatomical Region LateralityModalityHeadOptical Coherence Tomography Narrative 05/05/2025 8:43 AM EDT Right Eye Quality was good. Scan locations included subfoveal. Progression has worsened. Findings include abnormal foveal contour, intraretinal fluid. Left Eye Quality was good. Scan locations included subfoveal. Progression has been stable. Findings include abnormal foveal contour, intraretinal fluid. Authorizing ProviderResult TypeResult StatusKirby Florian DOOPHTH TOMOGRAPHY Edited Result - Final * Intravitreal Injection, Pharmacologic Agent - OD - Right Eye (03/23/2025 2:19 PM EDT)Anatomical RegionLateralityModalityHeadOther Narrative 03/23/2025 2:19 PM EDT Time Out 03/23/2025. 2:18 PM. Confirmed correct patient, procedure, site, and patient consented. Anesthesia Topical anesthesia was used. Anesthetic medications included Lidocaine 2%, Proparacaine 0.5%. Procedure Preparation included 5% betadine to ocular surface, eyelid speculum. A 30 gauge needle was used. Injection: 1.25 mg Bevacizumab 1.25 MG/0.05ML ??Route: Intravitreal, Site: Right Eye ??[facility]: [address]-1, Lot: [id number], Expiration date: 04/18/2025 Post-op Post injection exam [...] Intravitreal injection with the prescribed antiVEGF agent. ?? With intraocular surgery, there is potential for direct retinal damage through retinal or RPE tear, or infection, with subsequent vision loss. ?? Informative Intravitreal pamphlet provided as well as an OMIC consent. ??Of course, the treatment may fail to accomplish the overall therapeutic objectives, which is to stall or decrease the amount of retinal edema / bleeding, and therefore stall or improve vision loss. Intravitreal Anti-VEGF: ??Consent was obtained and questions answered. ?? Operative eye was identified, receiving topical proparacaine, 5% betadine, and 2% xylocaine jelly. ??A lid speculum was placed and the inferotemp. injection site received additional anesthetic with a proparacaine soaked cotton swab. ??Using calipers (set at 3.5mm for pseudo and 4mm for phakic), the inferotemp. limbus was measured, sclera marked and 2 additional drops of betadine placed. ??Avoiding any talking to avoid contamination, intravitreal injection was carried out without difficulty. Any residual amount of medication was discarded appropriately. The patient tolerated the procedure well and instructed to call with increased pain, redness, decreased vision or concerns. ?? Authorizing ProviderResult TypeResult StatusKirby Florian [facility] PROCEDURESFinal Result * OCT, Retina - OU - Both Eyes (03/08/2025 3:27 PM EDT)Anatomical Region LateralityModalityHeadOptical Coherence Tomography Narrative 03/08/2025 3:27 PM EDT Right Eye Quality was good. Scan locations included subfoveal. Progression has worsened. Findings include abnormal foveal contour, intraretinal fluid, subretinal fluid. Left Eye Quality was good. Scan locations included subfoveal. Progression has worsened. Findings include abnormal foveal contour, intraretinal fluid, subretinal fluid. Authorizing ProviderResult TypeResult [facility]Kirby Florian [facility] TOMOGRAPHY Edited Result - Final from Last 3 Months Insurance Care Teams Team MemberRelationshipSpecialtyStart DateEnd Date Ezio Amado MD [address] [place] [address] PCP - GeneralFamily Medicine01/19/25 Arline Rouse MD [address] [place] [address] Nurse PractitionerFaharley private hospital Medicine01/19/25
--- OUTSIDE RECORDS SUMMARY | 2025-06-06 15:02 | XMS_ITS | Clinical Summary ---
Author Organization [facility] Address [address] [facility] [place] [address] Care Team Providers Care Regional Branch Manager Name Role Phone Unavailable Primary Care Provider Unavailabl e Source Comments The following information is NOT included in Care Everywhere downloads:Psychiatric notes, ECG results, Cardiac Rehab notes, Pulmonary Function notes, data from SmartForms (includes but not limited toPregnancy data,audiograms, eye exams, pre-surgical evaluation notes, well-child exam data).[facility] Social History Tobacco UseTypesPacks/DayYears UsedDateSmoking Tobacco: Never AssessedSex and Gender InformationValueDate RecordedSex Assigned at BirthNot on fileLegal Sex Male01/13/2021 5:12 PM EDTGender IdentityNot on fileSexual OrientationNot on file Last Filed Vital Signs Vital SignReadingTime TakenCommentsBlood Agbiwapd27/5809 6:00 AM EDT Gllit2171 6:00 AM EDTTemperature--Respiratory Vrqt841305/01/2022 6:00 AM EDTOxygen Jaovdstkyg02%05/01/2022 6:00 AM EDT2 L NC at baselineInhaled Oxygen Concentration--Weight--Height--Body Mass Index-- Plan of Treatment Health MaintenanceDue DateLast PymkXoxrrpolPbdjgkxtgld02/19/1958Hepatitis C Rflxochd62/19/1976Tdap Gzliyve4311/28/1975Hepatitis A (HAV) Vaccine (optional start 19+ years)11/27/19760794Sadryzuucwb02/19/1993CRC Wgkjlmaca42/19/2003Cologuard (Stool DNA)2002FIT2002Pneumococcal Vaccine(s) (50+ yrs) (1 of 1 - PCV)11/28/2007Shingles (RZV) Vaccine (1 of 2)11/28/2007Hepatitis B (HBV) Vaccine (optional start 60+ years)04/19/2018Annual Wellness Visit (G0438)12/09/2022 COVID-19 Vaccine ( - 2024-26 season)2025Influenza Vaccine (#1)2025 RSV vaccine (adult) (1 - 1-dose 75+ series)2032 Insurance
--- OUTSIDE RECORDS SUMMARY | 2025-06-06 15:03 | XMS_ITS | Patient Health Record ---
Author Organization [facility] in [place] Address [address] [place] [address] Care Team Providers Care Clothing Examiner Name Role Phone Arline Lazar Primary Care Provider [phone] Desean Mensah Unavailable [phone] Estephania Cowart Unavailable [phone] Kwasi Amado Unavailable [phone] Allergies Allergen (clinical drug ingredient) Drug/Non Drug Allergy documented on EMR Reaction Allergy Type Onset Date Status CompazineAnxietyDrug AllergyActivemetforminMetforminGI UpsetDrug AllergyActive Results Component Value Reference Range Notes CRP Reviewed date:03/28/2025 11:39:16 AM Interpretation: Performing Lab: Notes/Report: [facility] , C Reactive Protein 0.78 <=0.50 mg/dL Performing Lab:see noteML - [facility] LBIRON Reviewed date:03/29/2025 01:07:07 PM Interpretation: Performing Lab: Notes/Report: [facility] ,Iron44.065.0-175.0 ug/dLPerforming Lab:see noteML - [facility] LB INSULIN Reviewed date:10/11/2024 10:47:22 AM Interpretation: Performing Lab: Notes/Report: [facility] ,Dkvkhci82.82.6-24.9 uIU/mL Performed at: - [facility] [address] [id number] Account Coordinator: Genaro Becerril PhD, Phone: [phone] Performing Lab:see note - [facility] LBCEA Reviewed date:10/11/2024 10:47:22 AM Interpretation: Performing Lab: Notes/Report: [facility] ,CEA3.50.0-4.7 ng/mL Nonsmokers <3.9 Smokers <5.6 [facility] Electrochemiluminescence Immunoassay (ECLIA) Values obtained with different assay methods or kits cannot be used interchangeably. Results cannot be interpreted as absolute evidence of the presence or absence of malignant disease. Performing Lab:see note - [facility] LBCA 19-9 Reviewed date:10/11/2024 10:47:22 AM Interpretation: Performing Lab: Notes/Report: [facility] ,CA 19-9170-35 U/mL [employer] Electrochemiluminescence Immunoassay (ECLIA) Values obtained with different assay methods or kits cannot be used interchangeably. Results cannot be interpreted as absolute evidence of the presence or absence of malignant disease. Performed at: [facility] [address] [place], [place] [id number] Account Coordinator: Genaro Becerril PhD, Phone: [phone] Performing Lab:see noteGood Shepherd Healthcare SystemUrine Culture, Routine Reviewed date:10/11/2024 10:47:21 AM Interpretation: Performing Lab: Notes/Report: [facility] ,Urine Culture, RoutineSee Below For Report Urine Culture, Routine Urine Culture, RoutineMixed urogenital shaggy Urine Culture, Routine Urine Culture, Sgvvpeo05,000-25,000 colony forming units per mL Urine Culture, Routine Urine Culture, RoutinePerformed at: 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 Ordering Physician: Conrad Lema M.D. Date of Service: 10/15/24 Procedure(s): XR lumbar spine bending only Accession Number(s): [id number] cc: ARLINE LAZAR ; Conrad Lema M.D. [place] [address] Patient Name: EVELIN PATTERSON MRN: [facility]:[id number] date: 1955 Sex: M Assigned Patient Location: Current Patient Location: Accession/Order Number: [id number] Exam Date: 10/15/2024 21:53 Report Date: 10/15/2024 22:06 At the request of: CONRAD LEMA MD Procedure: XR lumbar spine bending only Plain film flexion extension view lumbar spine COMPARISON: 03/25/2024 redemonstration of T10 vertebral body compression fracture. HISTORY: History of vertebral compression fracture. History of falls. No hypermobility with flexion extension views. Diffuse osteopenia. Mild multilevel spondylosis extensive multilevel facet degeneration redemonstrated. Progression of T10 anterior wedge compression fracture greater than 50%. No visible retropulsion of fracture fragment into the bony central canal. XR/XR lumbar spine bending only IMPRESSION: No hypermobility. Similar degenerative changes and diffuse osteopenia. Progression of T10 intervertebral compression fracture greater than 50%. Impression dictated by: Michael Tniajero M.D.10/15/2024 10:06 PM Dictation Location: [facility] Electronically authenticated by: [id number] Y Date: 10/15/2024 22:06 Dictated By: Michael Tinajero D.O. Signed By: 10/15/242207 DD/ 05 TD/TT: Refueling Rampman:SERJIO echo doppler complete Reviewed date:11/18/2024 04:06:06 PM Interpretation: Performing Lab: Notes/Report: Source Facility: [address] [place] [address] Cardiology Report Signed Patient: EVELIN PATTERSON MR#: [id number] : 1955 Acct:[id number] Age/Sex: 68 / M ADM Date: 11/17/24 Loc: CARD Attending Dr: Barb Vee M.D. Ordering Physician: Barb Vee M.D. Date of Service: 11/17/24 Procedure(s): CA echo doppler complete Accession Number(s): [id number] cc: ARILNE LAZAR ; Barb Vee M.D. Patient Name: EVELIN PATTERSON MR#: [id number] : 1955 Exam Date: 11/17/2024 Ordering Doctor: DR BARB VEE M.D. ECHOCARDIOGRAM REPORT PROCEDURE: CA ECHO DOPPLER COMPLETE INDICATIONS: Shortness of breath, hypertension, diabetes, COPD COMPARISON: None. DESCRIPTION: COMPLETE ECHOCARDIOGRAM Real-time transthoracic echocardiography with 2D, M-mode, spectral and color flow Doppler performed. QUALITY: Technically difficult due patient's condition. LEFT VENTRICLE: Normal chamber size. Mild concentric left ventricular hypertrophy. LV EF: Normal left ventricular ejection fraction, (55%). DIASTOLIC: ATRIAL SEPTUM: LEFT ATRIUM: Appears mildly dilated. RIGHT ATRIUM: Not well-visualized. RIGHT VENTRICLE: Normal chamber size. Systolic function is normal. TRICUSPID VALVE: Normal mobility and thickness. No stenosis with no regurgitation. MITRAL VALVE: Normal mobility and thickness. No evidence of mitral valve stenosis. There is no mitral annular calcification. No mitral regurgitation. AORTIC VALVE: Normal trileaflet appearance. No visible sclerosis. Normal leaflet mobility. No evidence of aortic valve stenosis. No aortic regurgitation. AORTIC ROOT: Normal diameter and appearance, measuring 3.7 cm. PULMONIC VALVE: Not well visualized. No stenosis. No regurgitation. PERICARDIUM: No evidence of pericardial effusion. IVC: IVC is dilated (2.2 cm) PLEURA: CONCLUSION: 1. Mild concentric left ventricular hypertrophy with normal systolic function. Estimated LVEF is 55%. 2. Normal right ventricular size and systolic function. 3. No significant valvular dysfunction. 4. Technically difficult study due to poor sound transmission. Adult Echocardiography Procedure Report Left Ventricle LVEDD (3.7 - 5.6 cm): 4.59 cm LVESD (2.2 - 4.0 cm): 3.65 cm LVIVS thickness (0.6 - 1.2 cm): 1.32 cm LVPW thickness (0.5 - 1.0 cm): 1.31 cm LVOT Max Gradient: 1.96 mm[Hg] LVOT Area (cm2): 0.70 m/s Peak Velocity (LVOT): 0.70 m/s Mean Velocity (LVOT): 0.44 m/s LVOT Diameter 2.19 cm Left Atrium Left Atrium Systolic Dimension: 3.97 cm Mitral Valve MV E to A Ratio: 1.36 Mitral Valve A-Wave Peak Velocity: 0.58 m/s Mitral Valve E-Wave Peak Velocity: 0.78 m/s Right Ventricle Aorta AO Root Diam: 3.70 cm Aortic Valve AoV Area (Peak Vamsi): 2.88 cm2, 2.88 cm2 AoV Area (VTI): 3.73 cm2, 3.73 cm2 Peak Velocity(Antegrade Flow): 0.92 m/s Peak Gradient(Antegrade Flow): 3.36 mm[Hg] Mean Velocity(Antegrade Flow): 0.56 m/s Mean Gradient(Antegrade Flow): 1.53 mm[Hg] Velocity Time Integral: 18.72 cm Tricuspid Valve Pulmonic Valve Mean Gradient: 1.49 mm[Hg] Mean Velocity: 0.56 m/s Peak Velocity: 0.96 m/s, 0.86 m/s Peak Gradient: 2.97 mm[Hg], 3.67 mm[Hg] Right Atrium Dictated by: Shanel Donohue M.D. on 11/17/2024 at 19:01 Approved by: Shanel Donohue M.D. on 11/17/2024 at 19:03 Dictated By: SHANEL DONOHUE Signed By: 11/17/241903 DD/ 02 TD/TT: Refueling Rampman:ECG 12 lead Reviewed date:12/24/2024 09:22:17 AM Interpretation: Performing Lab: Notes/Report: Source Facility: [facility]-[address] [place] [address] [place] [address] Electrocardiograph Report Signed Patient: EVELIN PATTERSON MR#: [id number] : 1955 Acct:[id number] Age/Sex: 69 / M ADM Date: 12/23/24 Loc: CARD Attending Dr: ARLINE LAZAR Ordering Physician: ARLINE LAZAR Date of Service: 12/23/24 Procedure(s): ECG 12 lead Accession Number(s): [id number] cc: [facility] Test Date: 2024-12-23 Pat Name: EVELIN PATTERSON Department: Room: - Gender: Male Contracting Support Specialist: : 1955 Requested By: [id number] Order Number: [id number] Reading MD: SHANEL DONOHUE M.D. Measurements Intervals [place] Rate: 83 P: GA: QRS: 14 QRSD: 77 T: 41 QT: 378 QTc: 445 Interpretive Statements ATRIAL FIBRILLATION ABNORMAL ECG Compared to ECG 02/19/2024 08:07:42 No significant changes Electronically Signed On 12-23-2024 19:43:46 EDT by SHANEL DONOHUE M.D. Dictated By: SHANEL DONOHUE Signed By: 12/23/24194312/23/241943 DD/ 0 TD/TT: Refueling Rampman:CBC AUTO DIFF Reviewed date:03/28/2025 11:39:16 AM Interpretation: Performing Lab: Notes/Report: [facility] ,White Blood Count6.74.0-11.0 10 3/uLRed Blood Count3.544.70-6.10 10 6/uL Hemoglobin9.614.0-18.0 g/gHFcroxiiusz11.542.0-54.0 %Mean Corpuscular Vzkzao02.2 80.0-94.0 fLMean Corpuscular Wxdwcgfpre14.125.9-34.0 pgMean Corpuscular HGB Conc 31.529.9-35.2 g/dLRed Cell Distribution Width16.311.0-15.0 %Platelet Zhkdt716 150-450 10 3/uLMean Platelet Volume9.99.5-13.5 fLNeutrophils Percent Auto59.0 43.0-75.0 %Lymphocytes Percent Auto22.120.5-60.0 %Monocytes Percent Auto9.81.7- 12.0 %Eosinophils Percent Auto7.70.9-7.0 %Basophils Percent Auto1.20.2-2.0 % Immature Granulocytes Pct Auto0.20.0-0.5 %Neutrophils Absolute Auto3.91.4-6.5 10 3/uLLymphocytes Absolute Auto1.51.2-3.8 10 3/uLMonocytes Absolute Auto0.70.3- 0.8 10 3/uLEosinophils Absolute Auto0.50.0-0.7 10 3/uLBasophils Absolute Auto0.1 0.0-0.1 10 3/uLImmature Granulocytes Abs Auto0.010.00-0.03 10 3/uLPerforming Lab:see note - [facility] LBFREE T3 Reviewed date:03/28/2025 11:39:16 AM Interpretation: Performing Lab: Notes/Report: [facility] ,Free T31.142.18-3.98 pg/mLPerforming Lab:see noteN[facility] LB GLYCOHEMOGLOBIN A1C Reviewed date:03/28/2025 11:39:16 AM Interpretation: Performing Lab: Notes/Report: [facility] ,Glycohemoglobin A1C8.94.5-6.2 % ADA RECOMMENDED LIMIT 4.0 - 6.0 ADA THERAPEUTIC TARGET < 7.0 ACTION SUGGESTED > 7.0 Estimated Average Tlfovai381Ttemronedy Lab:see note - [facility] LB INSULIN Reviewed date:03/28/2025 11:39:16 AM Interpretation: Performing Lab: Notes/Report: [facility] ,Frdnyjs28.12.6-24.9 uIU/mL Performed at: - [facility] [id number] Account Coordinator: Genaro Becerril PhD, Phone: [phone] Performing Lab:[facility] LBLIPID PROFILE Reviewed date:03/28/2025 11:39:16 AM Interpretation: Performing Lab: Notes/Report: [facility] ,Hcnuvrvewredk214<=150 mg/bSRwqqqfoasfv072<=200 mg/dLHDL Nlmdsrioojo5549-12 mg/dL > or =60 mg/dl - LOW CARDIOVASCULAR RISK <40 mg/dl - HIGH CARDIOVASCULAR RISK LDL Cholesterol Hxsefeilxm095.0 <100 mg/dl OPTIMAL 100-129 mg/dl NEAR OR ABOVE OPTIMAL 130-159 mg/dl BORDERLINE HIGH 160-189 mg/dl HIGH >190 mg/dl VERY HIGH VLDL OQVIVOKZIYD74.2Chol HDL Ratio5.7 3.3 - 4.4 LOW RISK 4.4 - 7.1 AVERAGE RISK 7.1 - 11.0 MODERATE RISK >11.0 HIGH RISK Performing Lab:see note - [facility] LBPROF 14(COMP METB) Reviewed date:03/28/2025 11:39:16 AM Interpretation: Performing Lab: Notes/Report: [facility] ,Ekkpmr541411-658 mmol/LPotassium5.13.5-5.1 mmol/BDchsumbi40071-291 mmol/LCarbon Fgfxsxo78.121.0-32.0 mmol/LAnion Gap10.7Ictsrtc74219-852 mg/dLBlood Urea Klkfqwmg57.07.0-18.0 mg/dLCreatinine1.380.70-1.30 mg/dLEstimated GFR ( Lilibeth>60>=60 mL/min/1.73m 2Estimated GFR (Non- Ame51>=60 mL/min/1.73m 2 BUN Creatinine Ratio13.3Zggzefj4.78.5-10.1 mg/dLBilirubin Total0.60.2-1.0 mg/dL Aspartate Amino Eudoeafphsh8864-56 U/LAlanine Mtddbdqmaromhsyi1575-89 U/L Alkaline Izjwwvbhybr15800-001 U/LTotal Protein8.16.4-8.2 g/dLAlbumin Level2.6 3.4-5.0 g/dLGlobulin5.5Albumin Globulin Ratio0.5Performing Lab:see note - [facility] LBPSA SCREENING Reviewed date:03/28/2025 11:39:16 AM Interpretation: Performing Lab: Notes/Report: [facility] ,Prostate Specific Antigen Scrn0.83<=4.00 ng/mLPerforming Lab:see note - [facility] LBT4 Reviewed date:03/28/2025 11:39:16 AM Interpretation: Performing Lab: Notes/Report: [facility] ,T4 Thyroxine5.604.50-12.10 ug/dLPerforming Lab:see noteML - [facility] LBTSH Reviewed date:03/28/2025 11:39:16 AM Interpretation: Performing Lab: Notes/Report: [facility] ,Thyroid Stimulating Hormone2.8050.358-3.740 uIU/mLPerforming Lab:see noteML - [facility] LBUA RANDOM W or MICROSCOPIC Reviewed date:03/28/2025 11:39:16 AM Interpretation: Performing Lab: Notes/Report: [facility] ,Color UrineYELLOWYELLOWClarity UrineCLEARCLEARSpecific Fedora Urine1.020 1.005-1.025pH Urine6.05.0-9.0Protein Ikugi12UDB/TRACE mg/dLGlucose Urine UA250 NEGATIVE mg/dLBilirubin UrineNEGATIVENEGATIVEKetones UrineTRACENEGATIVE mg/dL Blood UrineSMALLNEGATIVENitrite UrineNEGATIVENEGATIVEUrobilinogen Urine0.20.2- 1.0 EU/dLLeukocyte Esterase UrineNEGATIVENEGATIVEWBC Urine0-2NONE SEEN #/HPFRBC Urine2-50-2 #/HPFBacteria UrineTRACENONE SEEN #/HPFMucus UrineTRACENONE SEEN Squamous Epithelial Cell UrineRARENONE/RARE #/LPFCrystals Seen?None SeenNone Seen #/HPFCast Seen?NONE SEENNONE SEEN #/LPFUrine Culture IndicatedNOPerforming Lab:see noteML - [facility] LBVitamin B12 Reviewed date:03/28/2025 11:39:16 AM Interpretation: Performing Lab: Notes/Report: [facility] ,Vitamin G51670369-6597 pg/mL Performed at: [facility] [id number] Account Coordinator: Genaro Becerril PhD, Phone: [phone] Performing Lab:see note - [facility] LBXR KNEE RT 3V Reviewed date:12/23/2024 01:21:09 PM Interpretation: Performing Lab: Notes/Report: Source Facility: [facility]-[address] [place] [address] [place] [address] XRay Report Signed Patient: EVELIN PATTERSON MR#: [id number] : 1955 Acct:[id number] Age/Sex: 69 / M ADM Date: 12/23/24 Loc: CARD Attending Dr: ARLINE LAZAR Ordering Physician: ARLINE LAZAR Date of Service: 12/23/24 Procedure(s): XR knee RT 3V Accession Number(s): [id number] cc: ARLINE LAZAR [place] [id number] Patient Name: EVELIN PATTERSON MRN: [id number] date: 1955 Sex: M Assigned Patient Location: CARD Current Patient Location: CARD Accession/Order Number: [id number] Exam Date: 12/23/2024 11:45 Report Date: 12/23/2024 11:46 At the request of: ARLINE LAZAR Procedure: XR knee RT 3V XR knee RT 3V 12/23/2024 10:18 AM SIGNS AND SYMPTOMS: Right Knee Pain PROTOCOL: Frontal, lateral, and oblique radiographs of the right knee COMPARISON: 01/30/2024 FINDINGS: The weightbearing and patellofemoral joint spaces are grossly preserved. There is no fracture or dislocation. Vascular calcifications are present in the soft tissues. No joint effusion or soft tissue swelling. XR/XR knee RT 3V IMPRESSION: No acute bony injury or significant degenerative change. Impression dictated by: Bon Doherty M.D. 12/23/2024 11:46 AM Dictation Location: [place] [address] Electronically authenticated by: [id number] Y Date: 12/23/2024 11:46 Dictated By: Bon Doherty M.D. Signed By: 12/23/24 1148 DD/ 1146 TD/TT: Refueling Rampman:PROF CARLOS ENRIQUE Olmos ([facility]) Reviewed date:11/18/2024 04:06:06 PM Interpretation: Performing Lab: Notes/Report: [facility] ,Radaks790716-572 mmol/LPotassium3.93.5-5.1 mmol/TNemwdlbu57473-588 mmol/LCarbon Hgxiyiz80.221.0-32.0 mmol/LAnion Gap12.3Cqmsfdy66567-908 mg/dLBlood Urea Prcqfmom57.07.0-18.0 mg/dLCreatinine1.260.70-1.30 mg/dLEstimated GFR ( Lilibeth>60>=60 mL/min/1.73m 2Estimated GFR (Non- Ame57>=60 mL/min/1.73m 2 BUN Creatinine Ratio13.6Qpgbwwe4.68.5-10.1 mg/dLPerforming Lab:see noteML - [facility] LBCBC AUTO DIFF Reviewed date:11/18/2024 04:06:06 PM Interpretation: Performing Lab: Notes/Report: [facility] ,White Blood Count8.14.0-11.0 10 3/uLRed Blood Count4.104.70-6.10 10 6/uL Kuemyogfhv74.614.0-18.0 g/qECnssaqzyrz68.242.0-54.0 %Mean Corpuscular Mvukao53.3 80.0-94.0 fLMean Corpuscular Uypikithnx39.325.9-34.0 pgMean Corpuscular HGB Conc 32.029.9-35.2 g/dLRed Cell Distribution Width14.611.0-15.0 %Platelet Nipma901 150-450 10 3/uLMean Platelet Nvwhyo44.29.5-13.5 fLNeutrophils Percent Auto59.3 43.0-75.0 %Lymphocytes Percent Auto22.820.5-60.0 %Monocytes Percent Auto9.71.7- 12.0 %Eosinophils Percent Auto6.90.9-7.0 %Basophils Percent Auto1.10.2-2.0 % Immature Granulocytes Pct Auto0.20.0-0.5 %Neutrophils Absolute Auto4.81.4-6.5 10 3/uLLymphocytes Absolute Auto1.91.2-3.8 10 3/uLMonocytes Absolute Auto0.80.3- 0.8 10 3/uLEosinophils Absolute Auto0.60.0-0.7 10 3/uLBasophils Absolute Auto0.1 0.0-0.1 10 3/uLImmature Granulocytes Abs Auto0.020.00-0.03 10 3/uLPerforming Lab:see noteML - [facility] LBCT abdomen pelvis w con Reviewed date:10/11/2024 10:47:22 AM Interpretation: Performing Lab: Notes/Report: Source Facility: [facility]-[address] [place] [address] CT Scan Report Signed Patient: EVELIN PATTERSON MR#: [id number] : 1955 Acct:[id number] Age/Sex: 68 / M ADM Date: 10/09/24 Loc: ER Attending Dr: Ordering Physician: Daquan Ackerman D.O. Date of Service: 10/09/24 Procedure(s): CT abdomen pelvis w con Accession Number(s): [id number] cc: ARLINE LAZAR [place] [address] Patient Name: EVELIN PATTERSON MRN: [id number] date: 1955 Sex: M Assigned Patient Location: ER Current Patient Location: ER Accession/Order Number: [id number] Exam Date: 10/09/2024 11:19 Report Date: 10/09/2024 11:27 At the request of: DAQUAN ACKERMAN Procedure: CT abdomen pelvis w con CT abdomen pelvis w con 10/09/2024 11:18 AM SIGNS AND SYMPTOMS: Epigastric pain, abdominal cramping and diarrhea TECHNIQUE: Multidetector ct axial images of the abdomen and pelvis were obtained without IV contrast. Multiplanar reformats were performed and reviewed to further define anatomy and possible pathology. CT was performed with one or more of the following dose reduction techniques: Automated exposure control, adjustment of the mA and/or kV according to patient size, or use of iterative reconstruction technique. COMPARISON: 04/02/2024 FINDINGS: Lower Chest: There is mild scarring or atelectasis in the lung bases. ABDOMEN: Liver: The liver has lobulated margins suggesting hepatic cirrhosis. This is similar to the prior exam. Bile Ducts: Normal caliber. Gallbladder: Previously removed Pancreas: Within normal limits. Spleen: Within normal limits. Adrenals: Within normal limits. Kidneys: There are simple cysts in the renal cortices requiring no further follow-up. There is renal cortical atrophy bilaterally which is unchanged. Pelvis: Reproductive Organs: No pelvic masses. Ureters: Within normal limits. Bladder: Within normal limits. Bowel: Normal caliber. There is a normal appendix in the right lower quadrant. Mesenteric Lymph Nodes: No enlarged mesenteric lymph nodes. Peritoneum: No ascites or free air, no fluid collection. Vessels: Atherosclerotic changes are noted in the abdominal aorta and its branches. 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 This is similar to the prior exam and measures 2.2 cm in greatest dimension. Retroperitoneum: Within normal limits. Abdominal Wall: Within normal limits. Bones: There is a remote compression fracture of the T10 vertebral body which is unchanged. Findings suggest avascular sclerosis of the right femoral head. Mild degenerative changes are noted in the sacroiliac joints. CT/CT abdomen pelvis w con IMPRESSION: No acute intra-abdominal pathology. Findings are consistent with hepatic cirrhosis. There is evidence of prior cholecystectomy. Additional chronic findings are noted as above. Impression dictated by: Bon Doherty M.D.10/09/2024 11:27 AM Dictation Location: [place] [address] Electronically authenticated by: [id number] Y Date: 10/09/2024 11:27 Dictated By: Bon Doherty M.D. Signed By: 10/09/24 1130 DD/ 1127 TD/TT: Refueling Rampman:URIC ACID SERUM Reviewed date:10/11/2024 10:47:22 AM Interpretation: Performing Lab: Notes/Report: [facility] ,Uric Acid7.03.5-7.2 mg/dLPerforming Lab:see noteML - [facility] LBUA RANDOM W or MICROSCOPIC Reviewed date:10/11/2024 10:47:22 AM Interpretation: Performing Lab: Notes/Report: [facility] ,Color UrineLT. YELLOWYELLOWClarity UrineCLEARCLEARSpecific [place] Urine1.025 1.005-1.025pH Urine6.05.0-9.0Protein Dfakv556MLF/TRACE mg/dLGlucose Urine UA NEGATIVENEGATIVE mg/dLBilirubin UrineNEGATIVENEGATIVEKetones UrineNEGATIVE NEGATIVE mg/dLBlood UrineMODERATENEGATIVENitrite UrineNEGATIVENEGATIVE Urobilinogen Urine0.20.2-1.0 EU/dLLeukocyte Esterase UrineNEGATIVENEGATIVEWBC Urine0-2NONE SEEN #/HPFRBC Urine2-50-2 #/HPFBacteria UrineTRACENONE SEEN #/HPF Mucus UrineNONE SEENNONE SEENSquamous Epithelial Cell UrineRARENONE/RARE #/LPF Crystals Seen?None SeenNone Seen #/HPFCast Seen?SEENNONE SEEN #/LPFHyaline Casts UrineRAREUrine Culture IndicatedALREADY ORDEREDPerforming Lab:see noteML - [facility] LBTSH Reviewed date:10/11/2024 10:47:22 AM Interpretation: Performing Lab: Notes/Report: [facility] ,Thyroid Stimulating Hormone0.1360.358-3.740 uIU/mLPerforming Lab:see noteML - [facility] LBT4 Reviewed date:10/11/2024 10:47:22 AM Interpretation: Performing Lab: Notes/Report: [facility] ,T4 Thyroxine7.004.50-12.10 ug/dLPerforming Lab:see noteML - [facility] LBPSA SCREENING Reviewed date:10/11/2024 10:47:22 AM Interpretation: Performing Lab: Notes/Report: [facility] ,Prostate Specific Antigen Scrn1.38<=4.00 ng/mLPerforming Lab:see noteML - [facility] LBPROF 14(COMP METB) Reviewed date:10/11/2024 10:47:22 AM Interpretation: Performing Lab: Notes/Report: [facility] ,Jrgqff463948-905 mmol/LPotassium4.03.5-5.1 mmol/HKovvzytv15188-178 mmol/LCarbon Rppzxfc09.721.0-32.0 mmol/LAnion Gap16.3Gzttvtb72623-114 mg/dLBlood Urea Mtlcrvpu63.07.0-18.0 mg/dLCreatinine1.510.70-1.30 mg/dLEstimated GFR ( Kqkqexn56>=60 mL/min/1.73m 2Estimated GFR (Non- Ame46>=60 mL/min/1.73m 2 BUN Creatinine Ratio14.8Osydesl0.18.5-10.1 mg/dLBilirubin Total0.90.2-1.0 mg/dL Aspartate Amino Xsckvengtmq5982-58 U/LAlanine Rvtlkktgxotierfn5649-21 U/L Alkaline Zionrrzrost86029-168 U/LTotal Protein8.26.4-8.2 g/dLAlbumin Level3.0 3.4-5.0 g/dLGlobulin5.2Albumin Globulin Ratio0.6Performing Lab:see note - [facility] LBLIPID PROFILE Reviewed date:10/11/2024 10:47:22 AM Interpretation: Performing Lab: Notes/Report: [facility] ,Tdaqlznuihnfq872<=150 mg/eMBwdxrcdfhlw482<=200 mg/dLHDL Liwnrqecxiv4612-16 mg/dL > or =60 mg/dl - LOW CARDIOVASCULAR RISK <40 mg/dl - HIGH CARDIOVASCULAR RISK LDL Cholesterol Uolkqbmwyv98.2 <100 mg/dl OPTIMAL 100-129 mg/dl NEAR OR ABOVE OPTIMAL 130-159 mg/dl BORDERLINE HIGH 160-189 mg/dl HIGH >190 mg/dl VERY HIGH VLDL IXGCIIXBAYU12.8Chol HDL Ratio3.3 3.3 - 4.4 LOW RISK 4.4 - 7.1 AVERAGE RISK 7.1 - 11.0 MODERATE RISK >11.0 HIGH RISK Performing Lab:see [facility] LBGLYCOHEMOGLOBIN A1C Reviewed date:10/11/2024 10:47:22 AM Interpretation: Performing Lab: Notes/Report: [facility] ,Glycohemoglobin A1C6.94.5-6.2 % ADA RECOMMENDED LIMIT 4.0 - 6.0 ADA THERAPEUTIC TARGET < 7.0 ACTION SUGGESTED > 7.0 Estimated Average Ruhgkvw462Fjnjetgzir Lab:see note - [facility] LB FREE T3 Reviewed date:10/11/2024 10:47:22 AM Interpretation: Performing Lab: Notes/Report: The [facility] ,Free T32.292.18-3.98 pg/mLPerforming Lab:see [facility] LB CBC AUTO DIFF Reviewed date:10/11/2024 10:47:22 AM Interpretation: Performing Lab: Notes/Report: [facility] ,White Blood Count7.94.0-11.0 10 3/uLRed Blood Count4.204.70-6.10 10 6/uL Vazibfwjsn34.314.0-18.0 g/bWGhrxkesfpa36.942.0-54.0 %Mean Corpuscular Kyvkbw78.2 80.0-94.0 fLMean Corpuscular Fnolmkfikb16.325.9-34.0 pgMean Corpuscular HGB Conc 32.529.9-35.2 g/dLRed Cell Distribution Width15.211.0-15.0 %Platelet Lgprk909 150-450 10 3/uLMean Platelet Kxltkm24.09.5-13.5 fLNeutrophils Percent Auto57.3 43.0-75.0 %Lymphocytes Percent Auto23.420.5-60.0 %Monocytes Percent Auto9.41.7- 12.0 %Eosinophils Percent Auto7.90.9-7.0 %Basophils Percent Auto1.70.2-2.0 % Immature Granulocytes Pct Auto0.30.0-0.5 %Neutrophils Absolute Auto4.51.4-6.5 10 3/uLLymphocytes Absolute Auto1.81.2-3.8 10 3/uLMonocytes Absolute Auto0.70.3- 0.8 10 3/uLEosinophils Absolute Auto0.60.0-0.7 10 3/uLBasophils Absolute Auto0.1 0.0-0.1 10 3/uLImmature Granulocytes Abs Auto0.020.00-0.03 10 3/uLPerforming Lab:see noteML - [facility] LBPROF 14(COMP METB) Reviewed date:06/30/2024 12:04:17 PM Interpretation: Performing Lab: Notes/Report: [facility] ,Mtetcf724154-168 mmol/LPotassium4.33.5-5.1 mmol/LSPECIMEN SLIGHTLY HEMOLYZED Qonpwfew65072-162 mmol/LCarbon Ywflyva71.121.0-32.0 mmol/LAnion Gap14.2Glucose 73699-990 mg/dLBlood Urea Eylsxgav57.07.0-18.0 mg/dLCreatinine1.440.70-1.30 mg/dLEstimated GFR ( Xuqkpht36>=60 mL/min/1.73m 2Estimated GFR (Non- Ame49>=60 mL/min/1.73m 2BUN Creatinine Ratio11.0Gqdulpc2.38.5-10.1 mg/dL Bilirubin Total0.90.2-1.0 mg/dLAspartate Amino Zeqesmnkhar6774-83 U/LSPECIMEN SLIGHTLY HEMOLYZEDAlanine Qqczcyteuyxctdcg9998-70 U/LAlkaline Hmxmnxdseeq41237- 116 U/LTotal Protein8.36.4-8.2 g/dLAlbumin Level2.93.4-5.0 g/dLGlobulin5.4 Albumin Globulin Ratio0.5Performing Lab:see noteML - [facility] LB LIPID PROFILE Reviewed date:06/30/2024 12:04:17 PM Interpretation: Performing Lab: Notes/Report: [facility] ,Ynuiwapjgiguh581<=150 mg/rRZqerfyrcvmy671<=200 mg/dLHDL Uziwetqbdjm8613-57 mg/dL > or =60 mg/dl - LOW CARDIOVASCULAR RISK <40 mg/dl - HIGH CARDIOVASCULAR RISK LDL Cholesterol Btjgetgaux967.2 <100 mg/dl OPTIMAL 100-129 mg/dl NEAR OR ABOVE OPTIMAL 130-159 mg/dl BORDERLINE HIGH 160-189 mg/dl HIGH >190 mg/dl VERY HIGH VLDL ANXTSNLHRJQ80.8Chol HDL Ratio4.0 3.3 - 4.4 LOW RISK 4.4 - 7.1 AVERAGE RISK 7.1 - 11.0 MODERATE RISK >11.0 HIGH RISK Performing Lab:see noteML - [facility] Reviewed date:03/28/2025 11:39:16 AM Interpretation: Performing Lab: Notes/Report: [facility] ,Urine Culture - [facility]MCSee Below For Report Urine Culture - [facility] 20,000 colonies/ml mixed Urine Culture - FRMCbacterial skin contaminants Urine Culture - [facility] 20,000 colonies/ml mixed Urine Culture - [facility]2 Days Urine Culture - [facility] 20,000 colonies/ml mixed Urine Culture - [facility] Urine Culture - [facility] 20,000 colonies/ml mixed [facility] 20,000 colonies/ml mixed Urine Culture - [id number] [place] [address] Urine Culture - [facility] 20,000 colonies/ml mixed Performing Lab:see noteML - [facility] LB Reason For Referral Reason NCS bilateral arms Diagnosis 1 Paresthesia (R20.2) Referral Organization [facility] Referring Provider First Name Arline Referring Provider Last Name Nasim Referring Provider [facility] jonatan Referred Provider Noa Menendez Referred Provider Specialty Neurology Referral Priority Routine Diagnosis 1 Sciatica (M54.30) Referral Organization [facility] Referring Provider First Name Arline Referring Provider Last Name Nasim Referring Provider [facility] jonatan Referred Provider [facility], Physical Therap y Referred Provider Specialty Physical The rapist Referral Priority Routine Diagnosis 1 Right knee pain (M25 .561) Referral Organization [facility] Referring Provider First Name Arline Referring Provider Last Name Nas[facility] Carlos Saul Referred Provider Specialty Orthopedic S urgery Referral Priority Routine Reason DDD and sciatica Diagnosis 1 Sciatica (M54.30) Referral Organization [facility] Referring Provider First Name Arline Referring Provider Last Name Nasim [facility] Referred Provider Farhad Car Referred Provider Specialty Neurosurgery Referral Priority Routine Reason colonoscopy Diagnosis 1 Anemia (D64.9) Referral Organization [facility] Referring Provider First Name Arline Referring Provider Last Name Nasim [facility]erred Provider Gita Jeffery Referred Provider Specialty Gastroentero logy Referral Priority Routine Reason gen weakness, chroni c back pain Diagnosis 1 Generalized weakness (R53.1) Diagnosis 2 Back pain (M54.9) Referral Organization [facility] Referring Provider First Name Arline Referring Provider Last Name Nasim Referring Provider [facility] jonatan Referred Provider [facility], Physical Therap y Referred Provider Specialty Physical The rapist Referral Priority Routine Medications Medication SIG (Take, Route, Frequency, Duration) Notes Start Date End Date Status Eliquis 5 MG TAKE 1/2 TABLET BY MOUTH TWICE D AILY; Duration: 60 ActiveEsomeprazole Magnesium 40 MGTAKE 1 CAPSULE BY MOUTH TWICE DAILY FOR 30 DAYS THEN 1 CAPSULE ONCE DAILY CALL FOR NEXT PRESCRIPTION; Duration: 30ActiveCVS Aspirin Adult Low Dose 81 MGCHEW 1 TABLET (81 MG) IN THE MORNING Oral; Duration: 30 DaysActiveDiclofenac Sodium 75 MGTAKE 1 TABLET BY MOUTH TWICE A DAY NEEDED; Duration: 30ActiveFluconazole 150 MG1 tablet Orally once a week for 4 weeks; Duration: 28 days02/10/2025tiveFluticasone Propionate 50 MCG/ACT1 spray in each nostril Nasally Once a day; Duration: 30 daysActiveFerrous Sulfate 325 (65 Fe) MG1 tablet Orally Three times a Week; Duration: 30 days03/29/2025 ActiveFingerstix Lancets -as directed; Duration: 30 12/15/2023ctive Gabapentin 100 MG1 capsule Orally Twice Daily; Duration: 30 daysActiveGlucose Blood -as directed In Vitro daily; Duration: 30 days12/15/2023ctivetraZODone HCl 50 MGTAKE 1 TABLET BY MOUTH EVERY DAY AT BEDTIME NEEDED; Duration: 90 ActiveAssure Pro Blood Glucose Meter -as directed; Duration: days12/15/2023 ActiveAtorvastatin Calcium 40 MGTAKE 1 TABLET BY MOUTH IN THE MORNING. STOP ZOCOR Oral; Duration: 90 DaysActiveAlbuterol Sulfate HFA 108 (90 Base) MCG/ACT1 puff as needed Inhalation every 4 hrs5ActiveBD Pen Needle Mini U/F 31G X 5 MM; Duration: 90 DaysActiveBenadryl Allergy 25 MG 1 -2 Orally qid; Duration: 30 days itching 08/06/2024ctiveAtorvastatin Calcium 40 MG1 tablet Orally Once a day; Duration: 30 03/29/2025tiveAzelastine HCl 0.05 %1 drop into affected eye Ophthalmic Twice a day5ActiveClaritin 10 MG1 tablet Orally Once a day; Duration: 30 03/22/2025tiveIsosorbide Mononitrate ER 30 MGTAKE 1 TABLET EVERY DAY; Duration: ActiveLantus SoloStar 100 UNIT/MLINJECT 45 UNITS SUBCUTANEOUSLY EVERY DAYActiveBlood Glucose Monitor System w/Devicecheck blood sugar fasting every fygjnxy01/18/2025ActiveCarvedilol 3.125 MGOral; Duration: 90 DaysActive Lisinopril 20 MGTAKE 1 TABLET BY MOUTH EVERY DAY; Duration: 90ActiveMetoprolol Succinate ER 25 MGTAKE 1 TABLET BY MOUTH ONCE DAILY DIRECTED. STOP CARVEDILOL Oral; Duration: 90 DaysActiveLevothyroxine Sodium 200 MCGTAKE 1 TABLET EVERY DAY; Duration: 90ActiveLiothyronine Sodium 5 MCG1 tablet on an empty stomach Orally Once a day; Duration: 30 daysActiveMadison Health Bed with Halt Rails -Use As Directed; Duration: 360 days12/16/2023ctiveSertraline HCl 100 MG1 tablet Orally Once a day; Duration: 90 daysActiveNystatin 993906 UNIT/GMAPPLY TO AFFECTED AREA TWICE A DAY External; Duration: 30 DaysActiverOPINIRole HCl 0.5 MGTAKE 1 TABLET EVERY DAY AT BEDTIME; Duration: 90Active Social History Tobacco Use: Social History Observation Description Date Details (start date - stop date) Never Smoker NA - NA Tobacco Control (Standard) Question Answer Notes Tobacco use: Nonsmoker AUDIT-C (Standard) Question Answer Notes Did you have a drink containing alcohol in the p ast year? No Floilz0FqjawxgyoyxlswRzykbdyj Problems Problem Type SNOMED Code ICD Code Onset Dates Problem Status W/U Status Risk Notes Problem Chronic obstructive pulmonary disease (02853816) Chronic obstructive pulmonary disease, unspecified (J44.9) ActiveconfirmedProblemHypomagnesemia (342186223)Hypomagnesemia (E83.42)Active confirmedProblemFibromyalgia (002922956)Fibromyalgia (M79.7)Activeconfirmed ProblemHyperlipidemia (54801903)Hyperlipidemia (E78.5)ActiveconfirmedProblem Hypertension (00116010)Hypertension (I10)ActiveconfirmedProblemGastroesophageal reflux disease (958903513)GERD (gastroesophageal reflux disease) (K21.9)Active confirmedProblemAtrial fibrillation (disorder) (08454356)Afib (I48.91)Active confirmedProblemAnxiety (75341243)Anxiety (F41.9)ActiveconfirmedProblemAnemia (295992196)Anemia (D64.9)ActiveconfirmedProblemSleep apnea (63126105)Sleep apnea (G47.30)ActiveconfirmedProblemInsomnia (782423316)Insomnia (G47.00)Active confirmedProblemOsteoarthritis of knee (218932745)Knee osteoarthritis (M17.9) ActiveconfirmedProblemAcute bronchitis (73874913)Acute bronchitis (J20.9)Active confirmedProblemFatty liver (996383346)Fatty liver (K76.0)ActiveconfirmedProblem Paresthesia (47898987)Paresthesia (R20.2)ActiveconfirmedProblemSciatica (89092899)Sciatica (M54.30)ActiveconfirmedProblemSeasonal allergy (696762305) Seasonal allergies (J30.2)ActiveconfirmedProblemFibromyalgia (238745473) Fibromyalgia (M79.7)ActiveconfirmedProblemIron deficiency anemia (99343658) Anemia, iron deficiency (D50.9)ActiveconfirmedProblemSevere major depression, single episode, without psychotic features (41487461)Major depressive disorder, severe (F32.2)ActiveconfirmedProblemCirrhosis of liver (21951696)Cirrhosis of liver (K74.60)ActiveconfirmedProblemSeasonal allergy (126957572)Environmental and seasonal allergies (J30.89)ActiveconfirmedProblemAtrial fibrillation (26200084)New onset a-fib (I48.91)ActiveconfirmedProblemMalnutrition of moderate degree (Simon: 60% to less than 75% of standard weight) (13189269)Moderate malnutrition (E44.0)ActiveconfirmedProblemHypercholesterolemia (47620026) Hypercholesterolemia (E78.00)ActiveconfirmedProblemType II diabetes mellitus without complication (341074643)Diabetes (E11.9)ActiveconfirmedProblemDiabetes mellitus (93615460)Diabetes mellitus (E11.9)ActiveconfirmedProblemChronic kidney disease stage 3A (disorder) (286567169)Chronic kidney disease, stage 3a (N18.31)Activeconfirmed Vital Signs Heart Rate 63 /min 02/09/2025 Maeuytkqzsx51.4 degrees Vqxjpuyuvg64/28/2025Respiratory Rate16 /min06/10/2024 Blood pressure wurwbebcf97 mm Hg05/30/20253655Ozekqrrv80 %02/09/20258520Mcetab53 in 05/30/2025lood pressure mm Hg05/30/20259424Kqfpsm845 lbs10/20/2025BMI 49.21 kg/m205/30/2025 Procedures Procedure Date Ordered Date Performed Result Body Sit e EAR IRRIGATION - performed 07/07/2024 N/ACARDIO EKG012/20/2024N/A Encounters Encounter Location Date Provider Diagnosis [address] [address] 07/07/2024 Arline Lazar Acute sinusitis J01.90 ; Cerumen impaction H61.20 ; Actinic keratosis L57.0 and Ceruminosis, right H61.[address] [address] 10/08/2024 Arline Lazar Paresthesia R20.2 ; Fatigue R53.83 ; Depression F32.9 and GERD (gastroesophageal reflux disease) K21.[address] [address] 12/20/2024 Arline Lazar New onset a-fib I48.91 ; Diabetes E11.9 ; Cirrhosis of liver K74.60 and Major depressive disorder, severe F32.[address] [address] 02/09/2025 Arline Lazar Chronic obstructive pulmonary disease, unspecified J44.9 ; Chronic kidney disease, stage 3a N18.31 ; Seasonal allergies J30.2 ; Diabetes mellitus E11.9 and Yeast dermatitis B37.[address] [address] 03/22/2025 Arline Lazar Eustachian tube dysfunction, bilateral H69.83 ; Environmental and seasonal allergies J30.89 ; Sciatica M54.30 and Fatigue R53.[address] [address] 03/28/2025 Arline Lazar Diabetes mellitus E11.9 ; Anemia D64.9 and Hyperlipidemia E78.[address] [address] 05/30/2025 Arline Lazar Generalized weakness R53.1 ; Back pain M54.9 ; Chronic obstructive pulmonary disease, unspecified J44.9 and Major depressive disorder, severe F32.2 [facility] [address] [place] [address] [place] [address] 10/08/2024 Desean Highlander Diabetes E11.9 [facility] [address] [place] [address] [place] [address] 06/10/2024 Estephania Cowart Diabetes mellitus E11.9 [facility] [address] [facility] [place] [address] 06/07/2024 Arline [facility] [facility] [place] [address] 4Pamela CramerHypercholesterolemia E78.00 and Encounter for long-term current use of medication Z79.899[facility] [facility] [place] [address]/4PMan [facility] [facility] [place] [address]/4Pamelguy [facility] [facility] [place] [address] 4Ptrudy [facility] [facility] [place] [address]/4PamelMary [facility] [address] [facility] [place] [address]/4PMan [facility] [facility] [place] [address]/ Arline [facility] [facility] [place] [address]/Pamora [facility] [facility] [place] [address]Moisesf f thompson hospitalguy [facility] [facility] [place] [address]/10/2024Arline Denton in urine R31.9[facility] [address] [place] [address]/Pa[facility] [facility] [address] [place] [address]/04/2025[facility] [address] [place] [address]/Pamela [facility] [place] [address]/ Arline CramerDysuria R30.0[facility] [place] [address]/Pamela CramerSciatica M54.30 and Low back pain at multiple sites M54.50[facility] [facility] [place] [address]/Pamela [facility] [address] [place] [address]/07/2025Pamela [facility] [facility] [facility] [address] [place] [address]/ Arline CramerRight knee pain M25.561[facility] [place] [address]/Pamela [facility] [place] [address]/Pamela CramerRight knee pain M25.561[facility] [facility] [facility] [address] [place] [address]/Pamela [facility] [facility] [place] [address]/Pamela [facility] [facility] [facility] [address] [place] [address]/11/2024Pamela [facility] [facility] [address] [facility] [place] [address] 03/28/2025Pamela [facility] [facility] [place] [address]/Pamela CramerHypercholesterolemia E78.00[facility] [facility] [place] [address]/09/2024 [facility] [facility] [place] [place] [address]/11/2024Pamela CramerAnemia D64.9BSt[facility] [facility] [place] [address]/12/2024Pamela [facility] [facility] [place] [address]/03/2025Pamela [facility] [facility] [place] [address]/Pamela [facility] [facility] [address]/Pamela CramerCirrhosis of liver K74.60 Assessments Encounter Date Diagnosis (ICD Code) Assessment Notes Treatment Notes Treatment Clinical Notes Section Notes 06/10/2024 Diabetes mellitus (ICD-10 - E11. 9) 4Acute sinusitis (ICD-10 - J01.90)4Cerumen impaction (ICD-10 - H61.20)ear flush on right10/08/2024Paresthesia (ICD-10 - R20.2)10/08/2024 Fatigue (ICD-10 - R53.83)10/08/2024Diabetes (ICD-10 - E11.9)12/20/2024New onset a-fib (ICD-10 - I48.91) HR slightly irregular unable to obtain EKG in office fu cardiology 12/20/2024Diabetes (ICD-10 - E11.9) Patient educated on Diabetic diet... Reviewed Hypoglycemia / Hyperglycemia action plan: Instructed to call office if blood sugar above 350 or below 65 consecutively. Reviewed with patient the long-term effects of Diabetes Mellitus on the body and organs. Instructed patient to check feet daily, wearsocks daily, wear proper fitting shoes, lotion feet at night with no lotion between toes, powder between toes. Follow-up with podiatry Q6M and PRN. No toenail clipping except by Podiatry. Please bring glucase meter and record to each appointment, Please feel free to call if you have questions or concerns about management or condition. Please call 1 week before medications are depleted for refills. If you are instructed to be fasting for procedure or testing, please call for dosing instructions. A1c 6.9 continue current medications 02/09/2025hronic obstructive pulmonary disease, unspecified (ICD-10 - J44.9) some SOB with exertion, trial of albuterol prn02/09/2025hronic kidney disease, stage 3a (ICD-10 - N18.31) continue monitor labs last GFR 57, had improved 06/21/2024Hypercholesterolemia (ICD-10 - E78.00)06/21/2024Encounter for long- term current use of medication (ICD-10 - Z79.899)5Blood in urine (ICD- 10 - R31.9)11/24/2024Dysuria (ICD-10 - R30.0)12/07/2024Sciatica (ICD-10 - M54.30)12/07/2024Low back pain at multiple sites (ICD-10 - M54.50)12/21/2024 Right knee pain (ICD-10 - M25.561)12/23/2024Right knee pain (ICD-10 - M25.561) 03/28/2025Hypercholesterolemia (ICD-10 - E78.00)04/14/2025nemia (ICD-10 - D64.9)06/02/2025irrhosis of liver (ICD-10 - K74.60)03/22/2025Eustachian tube dysfunction, bilateral (ICD-10 - H69.83) continue flonase but use daily not prn defers ENT referral at this time 03/22/2025Environmental and seasonal allergies (ICD-10 - J30.89)03/28/2025 Diabetes mellitus (ICD-10 - E11.9) report BS in 2 weeks Patient educated on Diabetic diet... Reviewed Hypoglycemia / Hyperglycemia action plan: Instructed to call office if blood sugar above 350 or below 65 consecutively. Reviewed with patient the long-term effects of Diabetes Mellitus on the body and organs. Instructed patient to check feet daily, wearsocks daily, wear proper fitting shoes, lotion feet at night with no lotion between toes, powder between toes. Follow-up with podiatry Q6M and PRN. No toenail clipping except by Podiatry. Please bring glucase meter and record to each appointment, Please feel free to call if you have questions or concerns about management or condition. Please call 1 week before medications are depleted for refills. If you are instructed to be fasting for procedure or testing, please call for dosing instructions. 5Anemia (ICD-10 - D64.9)05/30/2025Generalized weakness (ICD-10 - R53.1) patient requesting PT5Back pain (ICD-10 - M54.9)05/30/2025hronic obstructive pulmonary disease, unspecified (ICD-10 - J44.9)03/28/2025 Hyperlipidemia (ICD-10 - E78.5)taking statin? check with szejjddp17/12/2025 Sciatica (ICD-10 - M54.30) requesting second opinion on DDD and sciatica told to go to pain managment and PT had MRI 02/09/2025Seasonal allergies (ICD-10 - J30.2)5Cirrhosis of liver (ICD- 10 - K74.60) hx of current liver enzymes wnl work on diet 10/08/2024Depression (ICD-10 - F32.9)4Actinic keratosis (ICD-10 - L57.0) fu derm for skin check referral sheet given 4Ceruminosis, right (ICD-10 - H61.21)10/08/2024GERD (gastroesophageal reflux disease) (ICD-10 - K21.9)12/20/2024Major depressive disorder, severe (ICD-10 - F32.2) resolved, in remission only taking 100 mg zoloft, mood is good 02/09/2025Diabetes mellitus (ICD-10 - E11.9) monitor BS daily, report 1-2 weeks if hypoglycemia, notify office 03/22/2025Fatigue (ICD-10 - R53.83)sleep apnea, does not tolerate cpap05/30/2025 Major depressive disorder, severe (ICD-10 - F32.2) psych added abilify, continue consider counseling 02/09/2025east dermatitis (ICD-10 - B37.2) Plan Of Treatment Pending Test Test Name Order Date CMP (COMPLETE METABOLIC PANEL) UA (URINALYSIS, COMPLETE) 10/08/2024 UA (URINALYSIS, COMPLETE) 03/22/2025 UA (URINALYSIS, COMPLETE) 10/11/2024 UA (URINALYSIS, COMPLETE) 11/24/2024 HEMOGLOBIN A1C (GLYCO) 03/22/2025 HEMOGLOBIN A1C (GLYCO) 10/08/2024 HEMOGLOBIN A1C (GLYCO) 01/30/2024 INSULIN, TOTAL 01/30/2024 INSULIN, TOTAL 10/08/2024 INSULIN, TOTAL 03/22/2025 LIPID PANEL (CHOL/TRIG/HDL/LDL) 03/22/20 25 LIPID PANEL (CHOL/TRIG/HDL/LDL) 10/08/19 25 LIPID PANEL (CHOL/TRIG/HDL/LDL) 01/30/20 24 CBC WITH DIFF 01/30/2024 CBC WITH DIFF 10/08/2024 UA (URINALYSIS, MICRO ONLY) 10/11/2024 URIC ACID 01/30/2024 URIC ACID 10/08/2024 CBC 04/14/2025 Urine Culture 11/24/2024 Urine Culture 10/08/2024 Urine Culture 03/22/2025 EAR IRRIGATION - performed 07/07/2024 CARDIO EKG 12/20/2024 CMP - Comprehensive Metabolic Panel 06/11 CT Abdomen and Pelvis w/ Contrast * 03/11 CBC W/AUTO DIFF 04/14/2025 PSA, TOTAL 01/30/2024 STOOL OCCULT BLOOD 01/30/2024 CA 19-9 10/08/2024 CEA 10/08/2024 CULTURE URINE 10/11/2024 HEPATITIS PANEL, ACUTE 06/02/2025 LIPID PROFILE 06/21/2024 VITAMIN B12 03/22/2025 CT ABD and PELV W CON 03/23/2024 XR CHEST 2 V 05/30/2025 THYROID PANEL (T4/TSH/FREE T3) 5 THYROID PANEL (T4/TSH/FREE T3) 5 THYROID PANEL (T4/TSH/FREE T3) 4 PSA, SCREENING 03/22/2025 PSA, SCREENING 10/08/2024 XR KNEE 3 VIEWS RIGHT 12/21/2024 US abdomen limited 03/01/2024 XR ribs LT 2V 03/01/2024 US abdomen complete 03/09/2024 CMP (COMP MET WILSON) w/eGFR CKD-EPI 2024 CMP (COMP MET WILSON) w/eGFR CKD-EPI 2024 CBC WITH DIFF 03/22/2025 Insurance Providers Payer Name Payer Address Payer Phone Subscriber Number Group Number Insured Name Patient Relationship to Insured Coverage Start Date Coverage End Date [employer]V PRIMARY MEDICARE [address] [place] [address] [id number] Evelin Patterson Self - patient is the insured 4 MEDICAID [place] [address] [facility] [address] [place], [place] [id number] [phone], ThomasSelf - patient is the insured Medications Administered Medication Instructions Date of Administration Dosage Notes Ketorolac Tromethamine 460 mg60 Medical (General) History Medical History History ICD Code Hypertension I10 Hypercholesterolemia E78.00 Diabetes E11.9 Anxiety F41.9 Depression F32.9 Insomnia G47.00 Sleep apnea G47.30 Fatty liver K76.0 Surgical History Surgery Date(Month/Year) Nasal Surgery Gall Bladder RemovalColonoscopyHeart CathHospitalization History Reason Date(Month/Year) Covid-19 2019
--- OUTSIDE RECORDS SUMMARY | 2025-06-06 15:03 | XMS_ITS | Clinical Summary ---
Author Organization [employer] [facility] Address [id number] [place] [address] Care Team Providers Care Barrer And Tacker Name Role Phone Pcp, Not In System Primary Care Provider Unavail able Allergies Active AllergyReactionsCriticalityNoted LonqTccpkbnwUsrqtomzq35/03/2022 Bloating and gas Other06/20/2016 COMPAZINE Prochlorperazine Medications MedicationSigDispense QuantityRefillsLast FilledStart DateEnd DateStatus PIOGLITAZONE HCL (ACTOS ORAL) Take by mouth.Active ISOSORBIDE MONONITRATE (IMDUR ORAL) Take by mouth.Active ATORVASTATIN CALCIUM (LIPITOR ORAL) Take by mouth.Active insulin glargine (LANTUS, BASAGLAR) 100 unit/mL (3 mL) insulin pen Inject 40 Units under the skin nightly.Active ranitidine (ZANTAC) 75 mg tablet Take by mouth.Active LEVOTHYROXINE SODIUM (SYNTHROID ORAL) Take by mouth.Active fluticasone propionate (FLONASE) 50 mcg/actuation nasal spray 1 spray into each nostril daily.Active BACLOFEN ORAL Take by mouth.Active nystatin (MYCOSTATIN) cream nystatin 100,000 unit/gram topical creamActive pen needle, diabetic 31 gauge x 5/16 needle pen needle, diabetic 31 gauge x 5/16 Active triamcinolone (KENALOG) 0.1 % ointment triamcinolone acetonide 0.1 % topical ointmentActive amitriptyline (ELAVIL) 50 mg tablet amitriptyline 50 mg tabletActive gabapentin (NEURONTIN) 100 mg capsule 07/13/2018Active hydroCHLOROthiazide (HYDRODIURIL) 25 mg tablet hydrochlorothiazide 25 mg tabletActive hydrOXYzine (ATARAX) 25 mg tablet 07/08/2018Active lisinopril (PRINIVIL,ZESTRIL) 40 mg tablet lisinopril 40 mg tabletActive meclizine (ANTIVERT) 25 mg tablet meclizine 25 mg tabletActive metFORMIN (GLUCOPHAGE) 500 mg tablet metformin 500 mg tablet Take 1 tablet twice a day by oral route.Active pantoprazole (PROTONIX) 40 mg EC tablet pantoprazole 40 mg tablet,delayed releaseActive sertraline (ZOLOFT) 100 mg tablet sertraline 100 mg tabletActive Active Problems ProblemNoted DateDiagnosed DateLower urinary tract rmmdfjie35/16/2016 Overview (06/26/2016): +++++++++ 06/26/2016 ALLSCRIPTS SUMMARY +++++++++++ New problem as of March 2016. Uroflow postvoid residual ordered. Microscopic obfadmexu11/16/2016 Overview (06/26/2016): +++++++++ 06/26/2016 ALLSCRIPTS SUMMARY +++++++++++ Initial evaluation August 30-. Patient has sporadic on serial follow-up. March 2016 cytology negative Epididymal pain06/26/2016 Overview (06/26/2016): +++++++++ 06/26/2016 ALLSCRIPTS SUMMARY +++++++++++ Worsening left epididymal discomfort started about November of 2015. Scrotal ultrasound was negative for epididymitis. No reproduction of discomfort with rectal exam. Patient treated empirically with Cipro in March 2016 Family History Medical HistoryRelationNameCommentsHypertensionMotherRelationNameStatusComments FatherDeceasedMotherAlive Social History Tobacco UseTypesPacks/DayYears UsedDateSmoking Tobacco: NeverSmokeless Tobacco: NeverAlcohol UseStandard Drinks/WeekCommentsNo0 (1 standard drink = 0.6 oz pure alcohol)AUDIT-CAnswerDate RecordedFrequency of Alcohol ConsumptionNever 09/16/2018Average Number of DrinksNot on file09/16/2018Frequency of Binge DrinkingNot on file09/16/2018ChildcareAnswerDate RecordedChildcareUnknown 01/14/2019EmploymentAnswerDate WpoealtbHgastdpgxrUjpxtee65/06/2019Purpose - Life AnswerDate RecordedPurpose and direction in bycsNjvxnlq38/11/2021ex and Gender InformationValueDate RecordedSex Assigned at BirthNot on fileLegal SexMale 03/16/2015 11:54 AM EDTGender IdentityNot on fileSexual OrientationNot on file Last Filed Vital Signs Vital SignReadingTime TakenCommentsBlood Rjzpolbw562/5008 11:50 PM EDT Knmqk8555 12:10 AM YAYQoeepiesqrh65.6 ??C (97.8 ??F)03/13/2022 5:42 PM EDTRespiratory Vkdr727903/13/2022 6:30 PM EDTOxygen Lzxpoprpar09%03/14/2022 12:10 AM EDTInhaled Oxygen Concentration--Jjuhty894 kg (363 lb 11.2 oz)03/13/2022 5:42 PM FWMOzcmkq228.8 cm (5' 10 )03/13/2022 5:42 PM EDTBody Mass Index52.19 03/13/2022 5:42 PM EDT Plan of Treatment Health MaintenanceDue DateLast DoneCommentsDepression Vjqjxhfdr46/19/1970Tobacco Fdosoyrzm55/19/1970Adult BMI Mnqxlqtsd04/19/1976DTaP,Tdap and Td Vaccines (1 - Tdap)1976Zoster (Shingles) Vaccine (1 of 2)11/28/2007Fall Risk Screening 2022Influenza Dupqpkm2804/11/2025 Medical Devices Not on file Insurance * Guarantor: Stephane Patterson LAccount TypeRelation to PatientDate of BirthPhone Billing AddressPersonal/CnlqqbWuhx76[birth year][address] [address] Care Teams Team MemberRelationshipSpecialtyStart DateEnd Date Pcp, [place] [address] [facility]03/13/22
--- OUTSIDE RECORDS SUMMARY | 2025-06-06 15:03 | XMS_ITS | Clinical Summary ---
Author Organization [facility] Address [address] [place] [address] Care Team Providers Care Brake Shoe Rebuilder Name Role Phone Arline Rouse CNP Primary Care Provider [phone] Allergies Active AllergyReactionsCriticalityNoted DateCommentsMetforminOther,Unknown 03/13/2022 Bloating and gas Other Reaction(s): Flatulence Bloating and gas ProchlorperazineAnxiety,FbjtlEbr03/02/2022 flatulence Medications MedicationSigDispense QuantityRefillsLast FilledStart DateEnd DateStatus lisinopril 40 mg tablet Take 40 mg by mouth in the morning.Active rOPINIRole (Requip) 0.5 mg tablet Take 0.5 mg by mouth.4Active Eliquis 5 mg tablet Take 5 mg by mouth once daily as directed.5Active Lantus Solostar U-100 Insulin 100 unit/mL (3 mL) injection pen INJECT 40 UNITS SUBCUTANEOUSLY EVERY DAYActive sertraline (Zoloft) 100 mg tablet Take 100 mg by mouth in the morning.Active gabapentin (Neurontin) 100 mg capsule Take 100 mg by mouth in the morning and at bedtime.Active isosorbide mononitrate ER (Imdur) 30 mg 24 hr tablet Take 30 mg by mouth in the morning.Active esomeprazole (NexIUM) [address] capsule Take 40 mg by mouth in the morning.Active levothyroxine (Synthroid, Levoxyl) 200 mcg tablet Take 200 mcg by mouth in the morning.Active diclofenac (Voltaren) 75 mg EC tablet Take 1 tablet by mouth Twice daily at 6am and 6pm.5Active simvastatin (Zocor) 20 mg tablet Take 20 mg by mouth at bedtime.5Active traZODone (Desyrel) 50 mg tablet Take 50 mg by mouth if needed.09/04/2024tive metoprolol succinate XL (Toprol-XL) 25 mg 24 hr tablet Indications:Benign hypertensive heart disease without congestive heart failure Take 1 tablet (25 mg) by mouth once daily as directed. Stop Carvedilol 90 tablet 503/ctive Active Problems ProblemNoted DateDiagnosed OnuaPhgquvbieogctp50/20/2025Lumbar radiculopathy 10/28/2024ngina pectoris, /20/2025Shortness of zwtheh8810/28/2024 Abdominal mass03/30/2024brasion of elbow03/30/2024cute UTI03/30/2024KI (acute kidney injury)03/30/2024ack pain03/30/2024HF (congestive heart failure) 03/30/2024hronic kidney disease, stage III (moderate)03/30/20242932UESCL89/20/2024 Depressive cedqlhaz13/20/2024Elevated erythrocyte sedimentation rate03/30/2024 Endocarditis due to Rqpkrnpwyefdxu95/20/2084Hhig94/20/8258Blahn42/20/2024 Generalized bcbtmpwo40/20/2821Vcmkblxcf85/20/2024Hypergammaglobulinemia 03/30/20240715Ifqirgaqdqhru65/20/5955Ggoodmsrequsft59/20/8505Ikguvjlhbplg21/20/2024 Qgxexcsqana99/20/2280Kxyioopmbytlxh53/20/8931Zbyzrunmvxyh22/20/2024 Wsnnzuxeqwjqax72/20/7695Lfrumfjey15/20/1907Swqfnlaqqfbe64/20/2024Morbid obesity due to excess /20/2024MSSA umkdjtksmv58/20/2024aroxysmal A-fib 03/30/2024ash and nonspecific skin aqylptyq90/20/2024Unable to care for self 03/30/2024AD in [place] vbdpfw6709/16/2023irrhosis of liver without ascites 09/16/2023OPD (chronic obstructive pulmonary disease)09/16/2023DD (degenerative disc disease), jgkgspap37/06/2024Type 2 diabetes mellitus with hyperglycemia, with long-term current use of kxkduuo5509/16/2023iabetic gbwofeskeexvwp59/06/3980Hszgwastkpzn39/06/2024Essential hypertension, benign 09/16/2023Gastroesophageal reflux nerubir6509/16/2023Generalized anxiety disorder 09/16/2023Hashimoto's oouxeqh4409/16/2023Hyperammonemia, type III09/16/2023 Cwgaezpd36/06/2024Lumbosacral radiculopathy due to degenerative joint disease of spine09/16/2023Obstructive sleep apnea zdvygoey98/06/2024rimary osteoarthritis of both knees09/16/2023 Overview (03/30/2024): Last Assessment & Plan: Increased pain and swelling for months and x-ray with OA. Start prednisone. Use percocet PRN. Referto ortho for evaluation. Patient declined PT. Restless leg yeqihouf61/06/2024Seasonal allergic rhinitis due to pollen 09/16/2023Mild nonproliferative diabetic retinopathy associated with type 2 diabetes ypozxobn32/26/2018Epididymal pain06/26/2016 Overview (03/30/2024): +++++++++ 06/26/2016 ALLSCRIPTS SUMMARY +++++++++++ Worsening left epididymal discomfort started about November of 2015. Scrotal ultrasound was negative for epididymitis. No reproduction of discomfort with rectal exam. Patient treated empirically with Cipro in March 2016 Lower urinary tract bdmdcfew24/16/2016 Overview (03/30/2024): +++++++++ 06/26/2016 ALLSCRIPTS SUMMARY +++++++++++ New problem as of March 2016. Uroflow postvoid residual ordered. Microscopic bkyhabmbf68/16/2016 Overview (03/30/2024): +++++++++ 06/26/2016 ALLSCRIPTS SUMMARY +++++++++++ Initial evaluation August 30-. Patient has sporadic on serial follow-up. March 2016 cytology negative Encounters DateTypeDepartmentCare RlrsHanqvtgescg38/03/2025bstract [facility] [address] [place] [address] Barb Hays MD from Last 3 Months Family History Medical HistoryRelationNameCommentsNo Known ProblemsFatherNo Known Problems MotherRelationNameStatusCommentsFatherMother Social History Tobacco UseTypesPacks/DayYears UsedDateSmoking Tobacco: NeverSmokeless Tobacco: Never Tobacco Cessation:Counseling Given: Not Answered Alcohol UseStandard Drinks/WeekCommentsNever0 (1 standard drink = 0.6 oz pure alcohol)Sex and Gender InformationValueDate RecordedSex Assigned at BirthMale 11/18/2024 9:57 AM EDTLegal JmwIlwg8002/06/2022 10:00 PM EDTGender IdentityMale 11/18/2024 9:57 AM EDTSexual OrientationDon't know11/18/2024 9:57 AM EDT Last Filed Vital Signs Vital SignReadingTime TakenCommentsBlood Wkrvtuuk117/8504 3:00 PM EDT Rzgmk744711/18/2024 3:00 PM EDTTemperature--Respiratory Sftn064611/18/2024 3:00 PM EDTOxygen Rkhwcagugz17%11/18/2024 3:00 PM EDTInhaled Oxygen Concentration-- Fgodyv160 kg (341 lb)10/28/2024 2:07 PM SMAOfjmad841.8 cm (5' 10 )10/28/2024 2:07 PM EDTBody Mass Index48.9310/28/2024 2:07 PM EDT Plan of Treatment Health MaintenanceDue DateLast DoneCommentsCT Msseotiuuako41/19/1958Colonoscopy 1957Colorectal Cancer Tctjrrchj52/19/1958Diabetes: Hemoglobin A1C 1955FIT-DNA1957FIT1957FOBT1957Medicare Annual Wellness (AWV)11/27/19577834Suutmjjwqigly24/19/1958Diabetes: Retinopathy Kfsyjkwyq19/19/1968 Depression Ontlrhfpx35/19/1970Diabetes: Urine Protein Ypovoignf29/19/1977Adult Swrpjjn6811/28/1979Zoster Vaccines (1 of 2)11/28/2007Fall Risk Ikimajwca48/19/2023 COVID-19 Vaccine ( - 2024- season)2025Influenza Vaccine (#1)2025 05/12/2024, 05/06/2023, 05/11/2021, Additional history existsPneumococcal Vaccine: 50+ XycqjPmkwldmte38/28/2023HIB VaccinesAged OutNo longer eligible based on patient's age to complete this topicHPV VaccinesAged OutNo longer eligible based on patient's age to complete this topicIPV VaccinesAged OutNo longer eligible based on patient's age to complete this topicMeningococcal B VaccineAged OutNo longer eligible based on patient's age to complete this topic Meningococcal VaccineAged OutNo longer eligible based on patient's age to complete this topicRotavirus VaccinesAged OutNo longer eligible based on patient's age to complete this topic Insurance Advance Directives * Full Code (Latest Code Status on File) Date ActivatedDate InactivatedComments11/18/2024 1:13 PM11/18/2024 5:30 PM Care Teams Team MemberRelationshipSpecialtyStart DateEnd Date Arline Rouse CNP [address] [facility], [facility] [address] [place], [place] [id number] [facility]10/25/24
--- NOTE | 2025-06-06 15:09 | XR_ITS ---
The [address] [address] Patient Name: EVELIN CAMACHO MRN: [id number] date: 1955 Sex: M Assigned Patient Location: LAB Current Patient Location: LAB Accession/Order Number: [id number] Exam Date: 06/06/2025 15:12 Report Date: 06/06/2025 18:01 At the request of: KATHIA LAZAR Procedure: XR chest 2V PA AND LATERAL CHEST: CLINICAL HISTORY: copd chronic cough for 6 months, shortness breath for 6 months COMPARISON: CT chest 02/15/2024 FINDINGS: Mildly enlarged cardiomediastinal silhouette.. Lungs are clear. No focal airspace opacity effusion or pneumothorax. XR/XR chest 2V IMPRESSION: NO ACUTE CARDIOPULMONARY ABNORMALITY. Impression dictated by: Dimitry Arguello M.D. 06/06/2025 6:01 PM Dictation Location: [place] [address] Electronically authenticated by: [id number] Y Date: 06/06/2025 18:01
--- OUTSIDE RECORDS SUMMARY | 2025-06-06 16:03 | XMS_ITS | CCD ---
Author Organization Unknown Care Team Providers Care Steel Melter Name Role Phone Unavailable Primary Care Provider Unavailabl e Unavailable Chronic Care Management Unavaila ble Summary Purpose DataExchange Insurance Providers Payer name Policy type / Coverage type Covered constitution party ID Effective Begin Date Effective End Date [facility] [id number] Unknown Unknown Family History Family History data not found Medication Administered No Medication Administered data Reason For Visit No Reason For Visit data Medical Equipment No Medical Equipment data Advance Directives No Advance Directive data
== END 2025-06-06 14:48 | disposition home or self-care (01) ==
LOC: LAB 14:49
PROVIDERS: PCP Nurse Practitioner Family; Visit Provider Nurse Practitioner Family
DX: K74.60 Unspecified cirrhosis of liver (principal); J44.9 Chronic obstructive pulmonary disease, unspecified
CPT/HCPCS: 36415; 71046; 80074

== ENCOUNTER 2025-06-09 17:37 | Emergency (ER) | payer MEDICARE, MEDICAID, SELFPAY ==
--- OUTSIDE RECORDS SUMMARY | 2024-07-16 06:00 | XMS_ITS ---
Author Organization [facility] Address [address] [place] [address] Care Team Providers Care Preload Supervisor Name Role Phone Arline Rouse Primary Care Provider Carlos Ashby Unavailable [phone] Margot Titus Unavailable [phone] REASON FOR VISIT lumbar pain Encounters Encounter Location Date Provider Diagnosis [facility] Office [address] [place] [address] [place] [address] 07/16/2024 Margot Titus Plan Of Treatment Pending Test Test Name Order Date Lumbar spine, 4v flex ext - 72882 2023 Progress Notes * EVELIN CAMACHO LDOB:[birth year] (69 yo M)Acc No.[id number]:07/16/2024 Patient:?CAMACHOEVELIN :?Margot Lema MD, PhDDOB:1955 ???Age:68 Y???Sex:MaleDate:07/16/2024hone:[phone]:[address] [place] [address], [address], [place], [phone]:Arline Rouse Subjective: * Chief Complaints: * 1 . Lumbar pain. * Medical History: Objective: * Vitals: Assessment: Plan: * Treatment: ?Imaging: Lumbar spine, 4v flex ext - 66288 Forms: * Images: * Electronic signature of Margot Titus MD, PHD on 06/09/2025 at 05:58 PM EDT Sign off status: Pending * Provider: Pa Lema MD, PhD Date: 1 09/16/2023 Generated for Printing/Faxing/eTransmitting on:?06/09/2025 05:58 PM EDT
--- OUTSIDE RECORDS SUMMARY | 2025-01-17 07:10 | XMS_ITS ---
Author Organization [facility] Address [address] [place] [address] Care Team Providers Care Stereo Equipment Installer Name Role Phone Arline Rouse Primary Care Provider Carlos Ashby [facility] [phone] REASON FOR VISIT RIGHT KNEE PAIN Medications Medication SIG (Take, Route, Frequency, Duration) Notes Start Date End Date Status Synthroid ActivegabapentinActivelisinoprilActiveLantusActiveropinirole hcl 0.5 MGTAKE 1 TABLET EVERY DAY AT BEDTIME for 90 DaysActiveEliquisActiveSupplementsCream for yeast infectionActiveBenadrylActiveNexIUMActiveArthritis medicationActive Encounters Encounter Location Date Provider Diagnosis [facility] [address] [place] [address] [place] [address] 01/17/2025 Carlos Saul Plan Of Treatment No Information Progress Notes * EVELIN CAMACHO LDOB:[birth year] (69 yo M)Acc No.[id number]:01/17/2025 Patient:?EVELIN CAMACHO :?Carlos Saul, MDDOB:1955???Age:69 Y ???Sex:MaleDate:01/17/2025Phone:[phone]:[address] [facility], [address], [place], [id number]:Arline Rouse Subjective: * Chief Complaints: * 1 [...] Electronic signature of Carlos Saul MD on 06/09/2025 at 05:57 PM EDTSign off status: Pending * Provider: Pa Saul MD Date: 0 01/17/2025 Generated for Printing/Faxing/eTransmitting on:?06/09/2025 05:57 PM EDT
--- OUTSIDE RECORDS SUMMARY | 2025-01-31 07:15 | XMS_ITS ---
Author Organization [facility] Address [address] [place] [address] Care Team Providers Care Assisted Living Nursing Director Name Role Phone Arline Rouse Primary Care Provider Carlos Ashby [facility] [phone] REASON FOR VISIT RIGHT KNEE PAIN Encounters Encounter Location Date Provider Diagnosis [facility] [facility] [address] [place] [address] [place] [address] 01/31/2025 Carlos Saul Plan Of Treatment No Information Progress Notes * EVELIN CAMACHO LDOB:[birth year] (69 yo M)Acc No.[id number]:01/31/2025 Patient:?EVELIN CAMACHO :?Carlos Saul MDDOB:1955???Age:69 Y ???Sex:MaleDate:01/31/2025Phone:[phone]:[address] [facility], [address], [place], [id number]:Arline Rouse Subjective: * Chief Complaints: * 1 . RIGHT KNEE PAIN. * Medical History: Objective: * Vitals: Assessment: Plan: * Treatment: Forms: * Images: * Electronic signature of Carlos Saul MD on 06/09/2025 at 05:59 PM EDTSign off status: Pending * Provider: Pa Saul MD Date: 0 01/31/2025 Generated for Printing/Faxing/eTransmitting on:?06/09/2025 05:59 PM EDT
--- OUTSIDE RECORDS SUMMARY | 2025-02-14 11:00 | XMS_ITS ---
Author Organization [facility] in [place] Address [address] [place] [address] Care Team Providers Care Soft Iron Inspector Name Role Phone Arline Rouse Primary Care Provider [phone] REASON FOR VISIT ears feel plugged Encounters Encounter Location Date Provider Diagnosis [facility] [address] [place] [address] 02/14/2025 Arline Rouse Plan Of Treatment No Information Progress Notes * YESENIA Stephane LDOB:[birth year] (69 yo M)Acc No.[id number]:02/14/2025 UNLOCKED PROGRESS NOTE Progress Note Patient: Stephane DESIR :?[facility]), CNPDOB:1955 ???Age:69 Y???Sex:MaleDate:02/14/2025Phone:[phone]:[address] [facility], [address], [place], [id number] Subjective: * Chief Complaints: * 1 . Ears feel plugged. * Medical History: Objective: * Vitals: Assessment: Plan: * Treatment: * * Electronic signature of Arline Rouse NP, TOWEL FOLDER.INTEGRATED CAMPAIGN MANAGER.[id number] on 06/09/2025 at 05:58 PM EDTSign off status: PendingVisit Status:?CANCPHONE (Cancelled Phone) * Provider: Javier WONG), INTEGRATED CAMPAIGN MANAGER Date: 0 02/14/2025 Generated for Printing/Faxing/eTransmitting on:?06/09/2025 05:58 PM EDT
--- OUTSIDE RECORDS SUMMARY | 2025-03-17 09:30 | XMS_ITS ---
Author Organization [facility] in [place] Address [address] [place] [address] Care Team Providers Care Project Director Name Role Phone Arline Rouse Primary Care Provider REASON FOR VISIT 3mon Encounters Encounter Location Date Provider Diagnosis [facility] [address] [place] [address] 03/17/2025 Arline Rouse Plan Of Treatment No Information Progress Notes * Stephane PATTERSON LDOB:[birth year] (69 yo M)Acc No.[id number]:03/17/2025 UNLOCKED PROGRESS NOTE Progress Note Patient: Stephane DESIR :?Arline Rouse (TTC), CNPDOB:1955 ???Age:69 Y???Sex:MaleDate:03/17/2025Phone:[phone]:[address] [place] [address], [address], [place], [phone] Subjective: * Chief Complaints: * 1 . 3mon. * Medical History: Objective: * Vitals: Assessment: Plan: * Treatment: * * Electronic signature of Arline Rouse NP, INSULATION HOSEMAN.BANQUET ATTENDANT.[id number] on 06/09/2025 at 05:58 PM EDTSign off status: PendingVisit Status:?CANC (Cancelled) * Provider: Javier Rouse CNP (TTC) Date: 0 03/17/2025 Generated for Printing/Faxing/eTransmitting on:?06/09/2025 05:58 PM EDT
--- OUTSIDE RECORDS SUMMARY | 2025-03-22 09:15 | XMS_ITS ---
Author Organization [facility] in [place] Address [address] [place] [address] Care Team Providers Care Commercial Diver Name Role Phone Arline Rouse Primary Care Provider REASON FOR VISIT EAR PAIN, DRAINAGE Encounters Encounter Location Date Provider Diagnosis [facility] [address] [place] [address] 03/22/2025 Arline Rouse Plan Of Treatment No Information Progress Notes * Stephane PATTERSON LDOB:[birth year] (69 yo M)Acc No.[id number]:03/22/2025 UNLOCKED PROGRESS NOTE Progress Note Patient: Stephane DESIR :?Arline WONG), CNPDOB:1955 ???Age:69 Y???Sex:MaleDate:03/22/2025Phone:[phone]:[address] [facility], [facility] [address], [place], [phone] Subjective: * Chief Complaints: * 1 . EAR PAIN, DRAINAGE. * Medical History: Objective: * Vitals: Assessment: Plan: * Treatment: * * Electronic signature of Arline Rouse NP, CLINICAL ACCOUNT LIAISON.SHIPPING ASSOCIATE.[id number] on 06/09/2025 at 05:59 PM EDTSign off status: PendingVisit Status:?N/S N/C (No Show/No Charge) * Provider: Javier Rouse (TTC), SHIPPING ASSOCIATE Date: 0 03/22/2025 Generated for Printing/Faxing/eTransmitting on:?06/09/2025 05:59 PM EDT
--- OUTSIDE RECORDS SUMMARY | 2025-05-30 09:00 | XMS_ITS ---
Author Organization [facility] in [place] Address [address] [place] [address] Care Team Providers Care Wedger Name Role Phone Arline Rouse Primary Care Provider Allergies Allergen (clinical drug ingredient) Drug/Non Drug Allergy documented on EMR Reaction Allergy Type Onset Date Status CompazineAnxietyDrug AllergyActivemetforminMetforminGI UpsetDrug AllergyActive Reason For Referral Reason gen weakness, chroni c back pain Diagnosis 1 Generalized weakness (R53.1) Diagnosis 2 Back pain (M54.9) Referral Organization [facility] Medicine Referring Provider First Name Arline Referring Provider Last Name Nasim Referring Provider Speciality Family Med icine Referred Provider [facility], Physical Therap y Referred Provider Specialty Physical The rapist Referral Priority Routine REASON FOR VISIT [facility] F/U- 05/30- Depression Medications Medication SIG (Take, Route, Frequency, Duration) Notes Start Date End Date Status traZODone HCl 50 MG TAKE 1 TABLET BY MICHI TH EVERY DAY AT BEDTIME NEEDED; Duration: 90 [facility] Bed with Halt Rails -Use As Directed; Duration: 360 days12/16/2023ctiveSertraline HCl 100 MG1 tablet Orally Once a day; Duration: 90 daysActiveNystatin 082782 UNIT/GMAPPLY TO AFFECTED AREA TWICE A DAY External; Duration: 30 DaysActiverOPINIRole HCl 0.5 MGTAKE 1 TABLET EVERY DAY AT BEDTIME; Duration: 90ActiveLantus SoloStar 100 UNIT/MLINJECT 45 UNITS SUBCUTANEOUSLY EVERY DAYActiveLisinopril 20 MGTAKE 1 TABLET BY MOUTH EVERY DAY; Duration: 90 ActiveMetoprolol Succinate ER 25 MGTAKE 1 TABLET BY MOUTH ONCE DAILY DIRECTED. STOP CARVEDILOL Oral; Duration: 90 DaysActiveLevothyroxine Sodium 200 MCGTAKE 1 TABLET EVERY DAY; Duration: 90ActiveLiothyronine Sodium 5 MCG1 tablet on an empty stomach Orally Once a day; Duration: 30 daysActiveFluconazole 150 MG 1 tablet Orally once a week for 4 weeks; Duration: 28 days5Active Fluticasone Propionate 50 MCG/ACT1 spray in each nostril Nasally Once a day; Duration: 30 daysActiveIsosorbide Mononitrate ER 30 MGTAKE 1 TABLET EVERY DAY; Duration: 90ActiveGabapentin 100 MG1 capsule Orally Twice Daily; Duration: 30 daysActiveGlucose Blood -as directed In Vitro daily; Duration: 30 days12/15/2023 ActiveFerrous Sulfate 325 (65 Fe) MG1 tablet Orally Three times a Week; Duration: 30 days03/29/2025tiveFingerstix Lancets -as directed; Duration: 30 days12/15/2023ctiveEliquis 5 MGTAKE 1/2 TABLET BY MOUTH TWICE DAILY; Duration: 60ActiveEsomeprazole Magnesium 40 MGTAKE 1 CAPSULE BY MOUTH TWICE DAILY FOR 30 DAYS THEN 1 CAPSULE ONCE DAILY CALL FOR NEXT PRESCRIPTION; Duration: 30Active Diclofenac Sodium 75 MGTAKE 1 TABLET BY MOUTH TWICE A DAY NEEDED; Duration: 30ActiveBenadryl Allergy 25 MG 1 -2 Orally qid; Duration: 30 days itching 08/06/2024ctiveClaritin 10 MG1 tablet Orally Once a day; Duration: 30 days 03/22/2025tiveBlood Glucose Monitor System w/Devicecheck blood sugar fasting every kqphxfy82/18/2025ActiveCarvedilol 3.125 MGOral; Duration: 90 DaysActiveCVS Aspirin Adult Low Dose 81 MGCHEW 1 TABLET (81 MG) IN THE MORNING Oral; Duration: 30 DaysActiveBD Pen Needle Mini U/F 31G X 5 MM; Duration: 90 DaysActive Atorvastatin Calcium 40 MG1 tablet Orally Once a day; Duration: 30 days 03/29/2025tiveAzelastine HCl 0.05 %1 drop into affected eye Ophthalmic Twice a day02/09/2025tiveAssure Pro Blood Glucose Meter -as directed; Duration: 360 days05/06/2024ActiveAtorvastatin Calcium 40 MGTAKE 1 TABLET BY MOUTH IN THE MORNING. STOP ZOCOR Oral; Duration: 90 DaysActiveAlbuterol Sulfate HFA 108 (90 Base) MCG/ACT1 puff as needed Inhalation every 4 hrs5Active Social History Tobacco Use: Social History Observation Description Date Details (start date - stop date) Never Smoker NA - NA Tobacco Control (Standard) Question Answer Notes Tobacco use: Nonsmoker AUDIT-C (Standard) Question Answer Notes Did you have a drink containing alcohol in the p ast year? No Gxthlb5OdgwonommjbrshQqrdddvn Vital Signs Weight 343 lbs 05/30/2025 Height 70 in 05/30/2025 Blood pressure systolic 130 mm Hg 05/30/20 25 Blood pressure diastolic 78 mm Hg 025 BMI 49.21 kg/m2 05/30/2025 Encounters Encounter Location Date Provider Diagnosis [id number] [place] [address] 05/30/2025 Arline Rouse Generalized weakness R53.1 ; Back pain M54.9 ; Chronic obstructive pulmonary disease, unspecified J44.9 and Major depressive disorder, severe F32.2 Assessments Encounter Date Diagnosis (ICD Code) Assessment Notes Treatment Notes Treatment Clinical Notes Section Notes 05/30/2025 Generalized weakness (ICD-10 - R 53.1) patient requesting PT5Back pain (ICD-10 - M54.9)5Chronic obstructive pulmonary disease, unspecified (ICD-10 - J44.9)05/30/2025Major depressive disorder, severe (ICD-10 - F32.2) psych added abilify, continue consider counseling Plan Of Treatment Treatment Notes Assessment Notes Generalized weakness patient requesting PT Major depressive disorder, severe psych added abilify, continue consider counseling Pending Test Test Name Order Date XR CHEST 2 V 05/30/2025 Referrals Referral Date Details 05/30/2025 05/30/2025, gen weak ness, chronic back pain, Physical Therapy [facility] Next Appt Details Follow Up: prn,3 Months, [place] son: Progress Notes * Stephane PATTERSON LDOB:[birth year] (69 yo M)Acc No.[id number]:05/30/2025 Progress Note Patient: Stephane DESIR :?Arline Rouse ([facility]), CNPDOB:1955 ???Age:69 Y???Sex:MaleDate:05/30/2025Phone:[phone]:[address] [facility] [address] [address], [address], [place], [id number] In:12:59 PM ESTCheck Out:01:53 PM EST Subjective: * Chief Complaints: * 1 . [facility] F/U- 05/30- Depression. * HPI: ???General:? not doing too great discharged from [facility] psych in there about 10 days add abilify mood had improved some when left back home and same problems with housing, etc has adult protective services involved waiting for some paperwork didnt pay rent not feeling good chronic stomach issues, IBS, feels bloated, has not seen GI told he has Hep C worried about abdomen and lungs Mom had lung cancer chest xray PT does crosswMooBella, tv and plays slots for fun. * ROS: ???General/Constitutional:?Anxiety?admits.?Depression?admits.?Fever?denies.?Headache?denies.?Weight loss?denies.?Ophthalmologic:?Discharge?denies.?Eye Pain?denies.?Itching and redness?denies.?ENT:?Nasal discharge?denies.?Nasal congestion?denies. Sore throat?denies.?Cardiovascular:?Chest tightness/ heavy pressure?denies.?Rapid heart rate?denies.?Swelling of extremities?denies.?Chest pain?denies.?Respiratory:?Productive cough?denies.?Chest pain?denies.?Cough?denies.?Shortness of breath?admits, with activity, chronic.?Wheezing?admits.?Gastrointestinal:?Abdominal pain?discomfort, feels bloated.?Constipation?admits.?Decreased appetite?denies.?Diarrhea?admits and IBS sx.?Nausea?denies.?Vomiting?denies.?Genitourinary:?Urinary incontinence?denies.?Painful urination?denies.?Musculoskeletal:?Back pain?chronic.?Neck pain?chronic.?Muscle aches?denies.?Skin:?Rash?denies.?Skin lesion(s)?denies.? * Active Problem List I10 Hypertension Modified On:12/15/2023 Status:qbxyflqkuI38.9Anxiety Modified On:12/15/2023 Status:upuwgyqssP42.30Sleep apnea Modified On:12/15/2023 Status:ubzmouawgJ93.00Insomnia Modified On:12/15/2023 Status:nghldrzraW96.0Fatty liver Modified On:12/15/2023 Status:sdgnpidwaI50.00Hypercholesterolemia Modified On:12/15/2023 Status:ijdzylgukD52.9Diabetes Modified On:12/15/2023 Status:vxoqnagsvS84.7Fibromyalgia Modified On:09/01/2023 Status:pgslvmfyaY09.42Hypomagnesemia Modified On:10/03/2023U Status:uastcnwpjM04.7Fibromyalgia Modified On:10/03/2023U Status:eluzwwwheC66.9Diabetes mellitus Modified On:10/03/2023U Status:pwxafzokvT48.30Sciatica Modified On:12/15/2023 Status:bylncprjjU18.9Knee osteoarthritis Modified On:01/30/2024U Status:svvcqycogK24.9Acute bronchitis Modified On:01/30/2024 Status:kwvipjizpI59.91New onset a-fib Modified On:03/01/2024U Status:uytpxjtukP52.91Afib Modified On:03/22/2024U Status:zervwagtnJ36.9Anemia, iron deficiency Modified On:03/22/2024 Status:btxxavrroN40.0Moderate malnutrition Modified On:03/22/2024 Status:nivwksiysO30.60Cirrhosis of liver Modified On:04/05/2024 Status:ekoglovcpB99.2Paresthesia Modified On:10/08/2024 Status:zsdyibmpwV81.9GERD (gastroesophageal reflux disease) Modified On:10/08/2024 Status:ajqsbirpcL61.2Major depressive disorder, severe Modified On:10/19/2024 Status:qhmjrdnjuA98.9Chronic obstructive pulmonary disease, unspecified Modified On:02/09/2025 Status:hgskkcscvL13.31Chronic kidney disease, stage 3a Modified On:02/09/2025 Status:wxbahvkvjF89.2Seasonal allergies Modified On:02/09/2025 Status:xfssjzsfbM51.89Environmental and seasonal allergies Modified On:03/22/2025 Status:rtfciogpnJ69.9Anemia Modified On:03/28/2025 Status:gacwfhfgzO22.5Hyperlipidemia Modified On:03/28/2025 Status:confirmed * Medical History: H ypertension, Hypercholesterolemia, Diabetes, Anxiety, Depression, Insomnia, Sleep apnea, Fatty liver. * Surgical History: N rasta Surgery , Gall Bladder Removal , Colonoscopy , Heart Cath . * Hospitalization/Major Diagno stic Procedure: C 2019. * Family History: F ather: . M other: , Lung cancer, diagnosed with Cancer. B rother(s): alive, AIDS. D amandaer(s): alive. 1 brother(s) . 1 daughter(s) - healthy. . * Social History: ???Tobacco Use:?Tobacco Control (Standard)?Tobacco use:?Nonsmoker ???Drug/Alcohol:?AUDIT-C (Standard)?Did you have a drink containing alcohol in the past year??No ?Points?0 ?Interpretation?Negative * Medications: T aking Albuterol Sulfate HFA 108 (90 Base) MCG/ACT Aerosol Solution 1 puff as needed Inhalation every 4 hrs , Taking Assure Pro Blood Glucose Meter(Blood Glucose Monitoring Suppl) - Device as directed , Taking Atorvastatin Calcium 40 MG Tablet TAKE 1 TABLET BY MOUTH IN THE MORNING. STOP ZOCOR Oral , Taking Atorvastatin Calcium 40 MG Tablet 1 tablet Orally Once a day , Taking Azelastine HCl 0.05 % Solution 1 drop into affected eye Ophthalmic Twice a day , Taking BD Pen Needle Mini U/F(Insulin Pen Needle) 31G X 5 MM Miscellaneous , Taking Benadryl Allergy(diphenhydrAMINE HCl) 25 MG Tablet 1 -2 Orally qid itching, Taking Blood Glucose Monitor System w/Device Kit check blood sugar fasting every morning , Taking Carvedilol 3.125 MG Tablet Oral , Taking Claritin(Loratadine) 10 MG Tablet 1 tablet Orally Once a day , Taking [facility] Aspirin Adult Low Dose(Aspirin) 81 MG Tablet Chewable CHEW 1 TABLET (81 MG) IN THE MORNING Oral , Taking Diclofenac Sodium 75 MG Tablet Delayed Release TAKE 1 TABLET BY MOUTH TWICE A DAY NEEDED , Taking Eliquis(Apixaban) 5 MG Tablet TAKE 1/2 TABLET BY MOUTH TWICE DAILY , Taking Esomeprazole Magnesium 40 MG Capsule Delayed Release TAKE 1 CAPSULE BY MOUTH TWICE DAILY FOR 30 DAYS THEN 1 CAPSULE ONCE DAILY CALL FOR NEXT PRESCRIPTION , Taking Ferrous Sulfate 325 (65 Fe) MG Tablet Delayed Release 1 tablet Orally Three times a Week , Taking Fingerstix Lancets(Lancets) - Miscellaneous as directed , Taking Fluconazole 150 MG Tablet 1 tablet Orally once a week for 4 weeks , Taking Fluticasone Propionate 50 MCG/ACT Suspension 1 spray in each nostril Nasally Once a day , Taking Gabapentin 100 MG Capsule 1 capsule Orally Twice Daily , Taking Glucose Blood - Strip as directed In Vitro daily , Taking Isosorbide Mononitrate ER 30 MG Tablet Extended Release 24 Hour TAKE 1 TABLET EVERY DAY , Taking Lantus SoloStar(Insulin Glargine) 100 UNIT/ML Solution Pen-injector INJECT 45 UNITS SUBCUTANEOUSLY EVERY DAY , Taking Levothyroxine Sodium 200 MCG Tablet TAKE 1 TABLET EVERY DAY , Taking Liothyronine Sodium 5 MCG Tablet 1 tablet on an empty stomach Orally Once a day , Taking Lisinopril 20 MG Tablet TAKE 1 TABLET BY MOUTH EVERY DAY , Taking Metoprolol Succinate ER 25 MG Tablet Extended Release 24 Hour TAKE 1 TABLET BY MOUTH ONCE DAILY DIRECTED. STOP CARVEDILOL Oral , Taking Nystatin 957833 UNIT/GM Cream APPLY TO AFFECTED AREA TWICE A DAY External , Taking rOPINIRole HCl 0.5 MG Tablet TAKE 1 TABLET EVERY DAY AT BEDTIME , Taking [facility] Bed with Halt Rails - - Use As Directed , Taking Sertraline HCl 100 MG Tablet 1 tablet Orally Once a day , Taking traZODone HCl 50 MG Tablet TAKE 1 TABLET BY MOUTH EVERY DAY AT BEDTIME NEEDED , Medication List reviewed and reconciled with the patient * Allergies: C ompazine: Anxiety, Metformin: GI Upset. Objective: * Vitals: W t:343lbs, Ht: 70 in, BP:130/78mm Hg, BMI:49.21Index, Ht-cm: 177.8 cm, Wt-k.58 kg. * Examination: ???General Examinations: ?GENERAL APPEARANCE:?alert and oriented,?in no acute distress.?EYES:?conjunctiva normal, sclera non-icteric.?NOSE:?normal external appearance.?LUNGS:?diminished breath sounds in the bases.?CARDIO:?regular rate and rhythm, S1, S2 normal.?ABDOMEN:?obese, rounded, BS positive.?MUSCULOSKELETAL:?decreased ROM due to body habitus.?SKIN:?warm and dry.? Assessment: * Assessment: 1.?Generalized weakness - R53.1 (Primary)???2.?Back pain - M54.9?&#160 ;?3.?Chronic obstructive pulmonary disease, unspecified - J44.9???4.?Major depressive disorder, severe - F32.2??? Plan: * Treatment: Notes: patient requesting PT? Referral To:Physical Therapy [facility]??Physical Therapist ?Reason:gen weakness, chronic back pain 2.?Back pain? Referral To:Physical Therapy [facility]??Physical Therapist ?Reason:gen weakness, chronic back pain 3.?Chronic obstructive pulmonary disease, unspecified?Imaging: XR CHEST 2 V4.?Major depressive disorder, severe? Notes: psych added abilify, continue consider counseling?? * Preventive Medicine: ??Screenings/Counseling:?BMI ACTION PLAN?Above Normal BMI Follow-up?Dietary management education, guidance, and counseling * Follow Up: p rn,3 Months * * Electronically signed by Arline Rouse VIDEO NETWORK ENGINEER, SPACE ENGINEER.REGIONAL GEODETIC ADVISOR.[id number] on 05/31/2025 at 03:08 PM EDTSign off status: CompletedVisit Status:?CHK (Check Out) true * Provider: Javier Rouse ([facility]), REGIONAL GEODETIC ADVISOR Date: 1 Generated for Printing/Faxing/eTransmitting on:?06/09/2025 05:59 PM EDT History and Physical Notes * HPI (History of Present Illness) CategorySub-CategoryDetailNotesCategory NotesGeneral not doing too great discharged from [facility] psych in there about 10 days add abilify mood had improved some when left back home and same problems with housing, etc has adult protective services involved waiting for some paperwork didnt pay rent not feeling good chronic stomach issues, IBS, feels bloated, has not seen GI told he has Hep C worried about abdomen and lungs Mom had lung cancer chest xray PT [place] does crosswords, tv and plays slots for fun Examination CategorySub-CategoryDetailNotesCategory NotesGeneral ExaminationsGENERAL APPEARANCE:alert and oriented, in no acute distressEYES:conjunctiva normal, sclera non-ictericEARS:NOSE:normal external appearanceTHROAT:CARDIO:regular rate and rhythm, S1, S2 normalLUNGS:diminished breath sounds in the basesABDOMEN: obese, rounded, BS positiveSKIN:warm and dryBACK:MUSCULOSKELETAL:decreased ROM due to body habitusLYMPH NODES: Consultation Request Notes Referral Date Referring Provider Referred Provider Not es 05/30/2025 Arline Rouse [facility], Physical Therapy gen weakness, chronic back pain
--- OUTSIDE RECORDS SUMMARY | 2025-06-02 10:22 | XMS_ITS ---
Author Organization [facility] in [place] Address [address] [place] [address] Care Team Providers Care Ultrasound Technologist Name Role Phone Arline Rouse Primary Care Provider REASON FOR VISIT hep C Encounters Encounter Location Date Provider Diagnosis [facility] [address] [place] [address] 06/02/2025 Arline Rouse Cirrhosis of liver K74.60 Assessments Encounter Date Diagnosis (ICD Code) Assessment Notes Treatment Notes Treatment Clinical Notes Section Notes 06/02/2025 Cirrhosis of liver (ICD-10 - K74 .60) Plan Of Treatment Pending Test Test Name Order Date HEPATITIS PANEL, ACUTE 06/02/2025 Progress Notes * Stephane PATTERSON LDOB:[birth year] (69 yo M)Acc No.[id number]:06/02/2025 Patient:?Stephane PATTERSON :1955???Age:69 Y???Sex:MalePhone:[phone] Address:[address] [place] [id number] Subjective: * Chief Complaints: * h ep C * Medical History: * Surgical History: * Hospitalization/Major Diagno stic Procedure: * Medications: Objective: * Vitals: * Physical Examination: ??? Assessment: * Assessment: 1.?Cirrhosis of liver - K74.60 (Primary)??? Plan: * Treatment: ?LAB: HEPATITIS PANEL, ACUTE * Procedure Codes: * true * Date:?Generated for Printing/Faxing/eTransmitting on:?06/09/2025 05:59 PM EDT
[2025-06-09] VITALS (28 sets, daily range): BP systolic 73–132; BP diastolic 52–88; PULSE 72–90; TEMP 36.9; O2SAT 81–100; BMI 47.3
--- NOTE | 2025-06-09 17:42 | XR_ITS ---
The [address] [address] Patient Name: EVELIN CAMACHO MRN: [id number] date: 1955 Sex: M Assigned Patient Location: ED.MAIN Current Patient Location: ED.MAIN Accession/Order Number: [id number] Exam Date: 06/09/2025 18:20 Report Date: 06/09/2025 19:27 At the request of: DAQUAN ACKERMAN Procedure: XR chest 1V PA CHEST: CLINICAL HISTORY: syncopal episode COMPARISON: 06/06/2025 Hypoventilatory changes. Cardiomegaly. Suspect mild central hilar congestion. Lungs are clear. No effusion or pneumothorax. XR/XR chest 1V IMPRESSION: Hypoventilatory changes. Question minimal Central hilar congestion Impression dictated by: Dimitry Arguello M.D. 06/09/2025 7:27 PM Dictation Location: [place] [address] Electronically authenticated by: [id number] Y Date: 06/09/2025 19:27
--- NOTE | 2025-06-09 17:42 | ECG_ITS ---
The [facility] Test Date: 2025-06-09 Pat Name: EVELIN CAMACHO Department: Room: - Gender: Male Hardness Tester: : 1955 Requested By: Ismael Tafoya Order Number: [id number] Reading MD: SHANEL DONOHUE M.D. Measurements Intervals [place] Rate: 72 P: 46 TX: 184 QRS: 37 QRSD: 80 T: 48 QT: 440 QTc: 464 Interpretive Statements 1100 Sinus rhythm 8304 Long QTc interval 9150 abnormal ECG Compared to ECG 12/23/2024 09:41:37 Atrial fibrillation no longer present Electronically Signed On 06-09-2025 17:52:11 EDT by SHANEL DONOHUE M.D.
--- NOTE | 2025-06-09 17:44 | ED.GENADUL1 ---
HPI HPI - General Adult General Chief complaint: Abdominal Pain Stated complaint: WEAKNESS Time Seen by Provider: 06/09/25 17:42 History of Present Illness HPI narrative: cc - almost passed out Pt brought in by EMS for evaluation after he got dizzy while sitting on the toilet passing stool. EMS reported that the patient's BP was low and he was pale on their initial assessment. The pt told us that he had diarrhea for the last few days but apparently he passed formed stool today. He denied any pain to the head or back - he did admit to some neck pain but said that it preceded the syncopal episode. He said that he did not fall or lose consciousness. I just became lightheaded, dizzy and weak all over. No extremity injury or pain at this time. He initially complained that he was weak but now feels closer to normal . EMS reported that the patient's color has dramatically improved . Related Data Home Medications ?Medication ?Instructions ?Recorded ?Confirmed atorvastatin 40 mg tablet 40 mg PO BEDTIME 07/16/23 10/09/24 esomeprazole magnesium 40 mg 40 mg PO Q24H 07/16/23 10/09/24 capsule,delayed release gabapentin 100 mg capsule 200 mg PO BEDTIME 07/16/23 10/09/24 insulin glargine 100 unit/mL (3 40 unit subcut DAILY 07/16/23 10/09/24 mL) subcutaneous pen (Lantus Solostar U-100 Insulin) isosorbide mononitrate 30 mg 30 mg PO DAILY 07/16/23 10/09/24 tablet,extended release 24 hr levothyroxine 200 mcg tablet 200 mcg PO DAILY 07/16/23 10/09/24 liothyronine 5 mcg tablet 5 mcg PO DAILY 07/16/23 10/09/24 ropinirole 0.5 mg tablet 0.5 mg PO BEDTIME 07/16/23 10/09/24 sertraline 100 mg tablet 100 mg PO DAILY 07/16/23 10/09/24 apixaban 5 mg tablet (Eliquis) 5 mg PO DAILY 04/14/24 10/09/24 diclofenac sodium 75 mg 75 mg PO Q12H PRN pain 04/14/24 10/09/24 tablet,delayed release nystatin 100,000 unit/gram topical 1 applic topical QDAY 04/14/24 10/09/24 cream trazodone 50 mg tablet 50 mg PO BEDTIME PRN insomnia 04/14/24 10/09/24 simvastatin 20 mg tablet 20 mg PO BEDTIME 10/09/24 10/09/24 Previous Rx's ?Medication ?Instructions ?Recorded lisinopril 20 mg tablet 20 mg PO QD #30 tabs 02/23/24 hyoscyamine sulfate 0.125 mg 0.125 mg PO Q6H PRN abdominal pain 10/09/24 sublingual tablet (Levsin/SL) #20 tabs ondansetron 4 mg disintegrating 4 mg PO Q6H PRN nausea and 10/09/24 tablet vomiting #20 tabs Allergies Allergy/AdvReac Type Severity Reaction Status Date / Time metformin AdvReac Severe Flatulence Verified 04/14/24 13:33 prochlorperazine (From AdvReac Severe Anxiety Verified 04/14/24 13:33 Compazine) Opioid HPI Opioid Management Most Recent Opioid Data: Last Pain Scale 10 Today, 17:39 Last ORT Total Score 1 02/18/24, 22:54 Last ORT Risk Category Low Risk 02/18/24, 22:54 PFSH PFS Medical History Neuropathy ?G62.9 - Polyneuropathy, unspecified (ICD-10) GERD (gastroesophageal reflux disease) ?K21.9 - Gastro-esophageal reflux disease without esophagitis (ICD-10) UTI (urinary tract infection) ?N39.0 - Urinary tract infection, site not specified (ICD-10) Sepsis ?A41.9 - Sepsis, unspecified organism (ICD-10) Fibromyalgia ?M79.7 - Fibromyalgia (ICD-10) Hyperlipidemia ?E78.5 - Hyperlipidemia, unspecified (ICD-10) Hypothyroid ?E03.9 - Hypothyroidism, unspecified (ICD-10) Depression ?F32.A - Depression, unspecified (ICD-10) Anxiety ?F41.9 - Anxiety disorder, unspecified (ICD-10) Hypertension ?I10 - Essential (primary) hypertension (ICD-10) Diabetes ?E11.9 - Type 2 diabetes mellitus without complications (ICD-10) Surgical History H/O right heart catheterization ?Z98.890 - Other specified postprocedural states (ICD-10) History of lithotripsy ?Z98.890 - Other specified postprocedural states (ICD-10) H/O colonoscopy ?Z98.890 - Other specified postprocedural states (ICD-10) Family History Mother Family history of cancer Social History Within the past year, how often did you have a drink containing alcohol: never Within the past year, how many standard drinks containing alcohol did you have on a typical day: 1 or 2 Within the past year, how often did you have six or more drinks on one occasion: never Total score: 0 Score interpretation: A score less than 4 is consistent with normal alcohol consumption. Smoking status: Never smoker Non-prescribed substance use: denies use Previous occupational history: disability Highest level of school completed/degree received: high school graduate Are you now , , , , never or living with a partner: In a typical week, how many times do you talk on the telephone with family, friends, or neighbors: twice per week How often do you get together with friends or relatives: twice per week How often do you attend yazdanism or zoroastrian services: 4 or more times per year Do you belong to any clubs or organizations such as yazdanism groups unions, fraternal or athletic groups, or school groups: no Total score: 2 Score interpretation: A score of greater than or equal to 2 indicates the lowest level of social isolation. Little interest or pleasure in doing things: not at all Feeling down, depressed, or hopeless: not at all Feel stressed/tense/nervous/anxious/difficulty sleeping: not at all Gender Identity: male Exam Narrative Exam Narrative: Nurses notes and vital signs reviewed and patient is not hypoxic. afebrile General: Well-appearing and in no apparent distress. Skin: Warm, dry, no pallor noted. No rash. Head: Normocephalic, atraumatic. Neck: Supple, non-tender. Eye: Pupils are equal, round and EOMI. No scleral icterus. Ears, Nose, Mouth, and Throat: Oral mucosa is moist Cardiovascular: Regular Rate and Rhythm without murmur, gallop or rub. Respiratory: No accessory muscle use or respiratory distress. Lungs are clear to auscultation, no wheezing, rales or rhonchi Back: No midline thoracic or lumbar vertebral tenderness. Musculoskeletal: normal ROM, no calf or popliteal tenderness, no lower extremity edema/swelling GI: Abdomen is soft, non-distended. Normal bowel sounds. No tenderness to palpation. No rebound, guarding, or rigidity noted. Neurological: A&O x4. No cranial nerve dysfunction observed. No truncal ataxia. Moves all extremities. Sensation intact. Psychiatric: Cooperative and interactive. Normal mood and affect. Constitutional Vital Signs, click to edit/add: Last Vital Signs Temp 98.5 F 06/09/25 17:39 Pulse 81 06/09/25 18:30 Resp 19 06/09/25 18:30 BP 101/66 06/09/25 18:30 Pulse Ox 100 06/09/25 18:30 O2 Del Method Room Air 06/09/25 17:50 Course Vital Signs Vital signs: Vital Signs Temperature 98.5 F 06/09/25 17:39 Pulse Rate 72 06/09/25 17:39 Respiratory Rate 20 06/09/25 17:39 Blood Pressure 80/60 L 06/09/25 17:39 Pulse Oximetry 100 06/09/25 17:39 Oxygen Delivery Method Room Air 06/09/25 17:39 Temperature 98.5 F 06/09/25 17:39 Pulse Rate 81 06/09/25 18:30 Respiratory Rate 19 06/09/25 18:30 Blood Pressure 101/66 06/09/25 18:30 Pulse Oximetry 100 06/09/25 18:30 Oxygen Delivery Method Room Air 06/09/25 17:50 Medical Decision Making MDM Narrative Medical decision making narrative: Patient was placed on director of social media marketing and EKG obtained. Blood drawn and sent for evaluation. EMS had started a peripheral IV and the patient was receiving a liter of normal saline IV fluid. Blood test results and CXR result are pending - awaiting final results. Patient signed out to Dr Chacon. Lab Data Lab results reviewed: Yes I reviewed the patient's lab results Labs: Lab Results 06/09/25 Range/Units 18:10 WBC 6.8 (4.0-11.0) 10^3/uL RBC 3.78 L (4.70-6.10) 10^6/uL Hgb 10.2 L (14.0-18.0) g/dL Hct 34.0 L (42.0-54.0) % MCV 89.9 (80.0-94.0) fL MCH 27.0 (25.9-34.0) pg MCHC 30.0 (29.9-35.2) g/dL RDW 16.6 H (11.0-15.0) % Plt Count 261 (150-450) 10^3/uL MPV 10.0 (9.5-13.5) fL Neut % (Auto) 66.9 (43.0-75.0) % Lymph % (Auto) 17.1 L (20.5-60.0) % [place] % (Auto) 9.3 (1.7-12.0) % Eos % (Auto) 5.4 (0.9-7.0) % Baso % (Auto) 1.2 (0.2-2.0) % Neut # (Auto) 4.5 (1.4-6.5) 10^3/uL Lymph # (Auto) 1.2 (1.2-3.8) 10^3/uL [place] # (Auto) 0.6 (0.3-0.8) 10^3/uL Eos # (Auto) 0.4 (0.0-0.7) 10^3/uL Baso # (Auto) 0.1 (0.0-0.1) 10^3/uL Abs Immat Gran (auto) 0.01 (0.00-0.03) 10^3/uL Imm/Tot Granulo (auto) 0.1 (0.0-0.5) % ECG Data Attestation: I personally reviewed and interpreted this ECG as follows: Interpretation: EKG interpretation:Emergency Department physician interpretation. Normal sinus rhythm at 72bpm. Normal axis, long QTc at 464 ms, no ST segment elevation or depression. Discharge Plan Discharge Patient Disposition: Still a Patient
--- OUTSIDE RECORDS SUMMARY | 2025-06-09 17:58 | XMS_ITS | Clinical Summary ---
Author Organization [facility] Address [address] [facility] [place] [address] Care Team Providers Care Paint Maker Name Role Phone Unavailable Primary Care Provider Unavailabl e Source Comments The following information is NOT included in Care Everywhere downloads:Psychiatric notes, ECG results, Cardiac Rehab notes, Pulmonary Function notes, data from SmartForms (includes but not limited toPregnancy data,audiograms, eye exams, pre-surgical evaluation notes, well-child exam data).[facility] Social History Tobacco UseTypesPacks/DayYears UsedDateSmoking Tobacco: Never AssessedSex and Gender InformationValueDate RecordedSex Assigned at BirthNot on fileLegal Sex Male01/13/2021 5:12 PM EDTGender IdentityNot on fileSexual OrientationNot on file Last Filed Vital Signs Vital SignReadingTime TakenCommentsBlood Lactizfz42/5809 6:00 AM EDT Loadp7528 6:00 AM EDTTemperature--Respiratory Atfm195605/01/2022 6:00 AM EDTOxygen Vdvdujxgkx01%05/01/2022 6:00 AM EDT2 L NC at baselineInhaled Oxygen Concentration--Weight--Height--Body Mass Index-- Plan of Treatment Health MaintenanceDue DateLast QbsoImqjbwvzKytbkfoopvp46/19/1958Hepatitis C Gzzycfah14/19/1976Tdap Owkzkou2411/28/1975Hepatitis A (HAV) Vaccine (optional start 19+ years)11/27/19764832Mgsiwdsmvhb70/19/1993CRC Wzicmtyzv36/19/2003Cologuard (Stool DNA)2002FIT2002Pneumococcal Vaccine(s) (50+ yrs) (1 of 1 - PCV)11/28/2007Shingles (RZV) Vaccine (1 of 2)11/28/2007Hepatitis B (HBV) Vaccine (optional start 60+ years)04/19/2018Annual Wellness Visit (G0438)12/09/2022 COVID-19 Vaccine ( - 2024-26 season)2025Influenza Vaccine (#1)2025 RSV vaccine (adult) (1 - 1-dose 75+ series)2032 Insurance
--- OUTSIDE RECORDS SUMMARY | 2025-06-09 17:58 | XMS_ITS | Patient Health Record ---
Author Organization [facility] Address [address] [place] [address] Care Team Providers Care Automation Analyst Name Role Phone Arline Rouse Primary Care Provider UnavailCarlos Magallanes Unavailable [phone] [address] ZhouJuan[address]imona Unavailable [phone] xxLottie Washington Unavailable Allergies Allergen (clinical drug ingredient) Drug/Non Drug Allergy documented on EMR Reaction Allergy Type Onset Date Status compozine (uncoded)anxietyAllergyActivemetforminmetFORMINGI upsetDrug Allergy Active Reason For Referral Reason APPROVED............ ........................NOT SCHEDULED...................................[facility] MRI LUMBAR TO BE DONE AT [facility] Diagnosis 1 Compression fracture of T10 vertebra with routine healing, subsequent encounter (S22.070D) Diagnosis 2 Spondylolisthesis of lumbar region (M43.16) Referral Organization [facility] Referring Provider First Name Juanasimona Referring Provider Last Name St Zhou Referring Provider Speciality Orthopedic Surgery Referred Organization [facility] Central Scheduling Referred Address [address] [place], [place],[address], Procedure 1 MRI Lumbar Spine w/o Dye (81997) General Notes Sravani Pichardo 2024 12:00:30 PM >, Gabriella Merino 10/15/2024 12:02:57 PM > WAITING ON TODAY'S OFFICE NOTE, Gabriella Merino 10/18/2024 10:12:51 AM > WAITING ON 10/16 OFFICE NOTE, Gabriella Merino 10/20/2024 02:45:19 PM > ANTHEM ACTIVE AND EFFECTIVE 10/09/24 PER AIM. AUTHORIZATION # [id number] APPROVED AND VALID 10/20/24-01/17/25 PER AIM. SCANNED INTO CHART AND FAXED TO [facility]., Sravani Pichardo 10/21/2024 10:46:43 AM >[facility] DOES NOT DO MRI WITH SEDATION PER PATIENT, SO WILL NEED TO CHANGE LOCATION TO [facility] IN [place]. SPOKE WITH [facility] AND THEY NEED TO FAIL TEST WITH VERSED FIRST THEN WILL DO SEDATION, Gabriella Merino 10/22/2024 07:23:10 AM > I'M CONFUSED REFERRAL DOESN'T SAY ANYTHING ABOUT SEDATION AND AUTHORIZATION WASN'T OBTAINED FOR SEDATION. DO I NEED TO GET SEDATION PRECERTED THAT REQUIRES A SEPARATE AUTHORIZATION THROUGH [employer]., Sravani Pichardo 10/22/2024 01:47:18 PM >THERE IS A REFERRAL FOR MRI AND REFERRAL FOR SEDATION IN THE CHART, AND YES I NEED SEDATION, Gabriella Merino 10/22/2024 01:54:57 PM > AUTH UPDATED TO [facility]. SCANNED INTO CHART AND FAXED TO THEM. IF THEY END UP DOING SEDATION THEY WILL HAVE TO OBTAIN AUTHORIZATION., Brigitte Heredia 10/25/2024 08:40:54 AM > order faxed Referral Priority Routine Reason APPROVED............ ......................NOT SCHEDULED..............................Y[facility]ANI [facility] LUM[facility] MEYLOGRAM TO BE DONE AT [facility] Diagnosis 1 Compression fracture of T10 vertebra with routine healing, subsequent encounter (S22.070D) Diagnosis 2 Spondylolisthesis of lumbar region (M43.16) Referral Organization [facility] Referring Provider First Name Margot Referring Provider Last Name St Zhou Referring Provider Speciality Orthopedic Surgery Referred Organization [facility] Central Scheduling Referred Address [address] [place], [place],[address],[place] Procedure [address] lumbar spine; W/ contrast material (33771) General Notes Sravani Pichardo 2024 08:29:42 AM >Wilber Kayla 12/30/2024 09:31:17 AM > ANTHEM ACTIVE AND EFFECTIVE 10/09/24 PER AIM. AUTHORIZATION # [id number] APPROVED AND VALID 12/30/24-03/29/25 PER AIM. SCANNED INTO CHART AND FAXED TO [facility].Giovanna Sara 12/30/2024 10:51:28 AM > faxed, Sravani Pichardo 02/04/2025 10:29:13 AM >LOCATION CHANGE TO [facility] PLEASE, Sravani Pichardo 02/04/2025 10:30:11 AM >Wilber Kayla 02/04/2025 10:41:01 AM > AUTHORIZATION UPDATED AND FAXED TO [facility].Giovanna Sara 02/07/2025 09:54:04 AM >faxed Referral Priority [...] alcohol in the p ast year? No Pylywa3GdehtguwkxmwixTyahppfuZawrwyb Control (Standard) Question Answer Notes Tobacco use: Nonsmoker Problems Problem Type SNOMED Code ICD Code Onset Dates Problem Status W/U Status Risk Notes Problem Claustrophobia (F40.240) VcloshuchrtodebVpukcgp408002136894201Qdinypurhzuxljxcf of lumbar region (M43.16) YvcyiewlfawjfktGbfqpzq347210361Xumdsyu of fall (Z91.81)ActiveconfirmedProblem 944025062Ngrfghxklmf fracture of T10 vertebra with routine healing, subsequent encounter (S22.070D)KxnjrpchpgduxvkQlvwyog83610092Dxcbfwugfkwa of intervertebral disc of lumbosacral region with discogenic back pain and lower extremity pain (M51.372)Activeconfirmed Vital Signs Height 5 ft 10 in in 10/15/2024 Ucmurc508 lbs5BMI45.9110/15/2024 Encounters Encounter Location Date Provider Diagnosis [facility] Office [address] [place] [address] [place] [address] 10/15/2024 [place]ie [place] Compression fracture of T10 vertebra with routine healing, subsequent encounter S22.070D ; Spondylolisthesis of lumbar region M43.16 ; 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 back pain and lower extremity pain M51.372 and History of fall Z91.81 [facility] [address] [place] [address] 12/30/2024 Selvon Tacho Compression fracture of T10 [...] Lumbar spine 2v flex and ext - 08866 02/2025 CT Myelogram - Lumbar Spine 12/30/2024 Sedation per Radiologist orders for diag nostic procedure 10/15/2024 MRI : Lumbosacral Spine W/O Contrast - 7 8 10/15/2024 Insurance Providers Payer Name Payer Address Payer Phone Subscriber Number Group Number Insured Name Patient Relationship to Insured Coverage Start Date Coverage End Date Medicare [employer] [address] [place] [address] [id number] EVELIN CAMACHO Self - [facility] the [facility] [address] [place] [id number] Pasha CAMACHO - patient is the [id number] 2024 Medical (General) History Medical History History ICD Code High Blood Pressure Abnormal Heart RhythmBronchitisLiver DiseaseDiabetesThyroid diseaseStomach ulcersGastric RefluxIrritable bowel syndromeKidney stonesAnemiaAnxietyDepression Seen a PsychiatristDrug AllergiesSurgical History Surgery Date(Month/Year) Heart cath
--- OUTSIDE RECORDS SUMMARY | 2025-06-09 17:58 | XMS_ITS | Encounter Summary ---
Author Organization [facility] Address [address] [place] [address] Care Team Providers Care Auto Damage Adjuster Name Role Phone Arline Rouse MD Unavailable [phone] Ezio Amado MD Primary Care Provider [phone] Reason for Visit * ReasonOnset DateCommentsNo Show04/21/2025Hx of No Shows Encounter Details DateTypeDepartmentCare Team (Latest Contact Info)Shvoopfzdkw77/11/2025Telephone [facility] [address] [place] [address] Carlos Burns, DPMaite [address] [place], [place] [phone] No Show (Hx of No Shows) Social History Tobacco UseTypesPacks/DayYears UsedDateSmoking Tobacco: NeverPassive Smoke Exposure: NeverSmokeless Tobacco: NeverAlcohol UseStandard Drinks/WeekComments Never0 (1 standard drink = 0.6 oz pure alcohol)caffeine intake : more than 4 cups per daySex and Gender InformationValueDate RecordedSex Assigned at BirthNot on fileLegal IvkAwjn7810/23/2022 7:00 PM EDTGender IdentityNot on fileSexual OrientationNot on filedocumented as of this encounter Miscellaneous Notes * Telephone Encounter - Marry Valadezjulai - 06/07/2025 9:47 AM EDT Explained next NS we would not be able to reschedule another appt. Pt understood * Telephone Encounter - Marry Fineny - 05/10/2025 1:53 PM EDT Next no show no call we will not be able to schedule another appt * Telephone Encounter - Gilmer Pinzon - 04/21/2025 2:43 PM EDT Patient no call no show his appointment with us today, April 21, 2025. This is his second no show with our office (NS#1 04/05/2025 & NS #2 04/21/2025) documented in this encounter Plan of Treatment DateTypeDepartmentCare Team (Latest Contact Info)Bgcyqxzsnhs82/11/2025 1:30 PM ESTProcedure Visit [facility] [address] [place] [phone] Carlos Burns DPMaite [address] [place], [place] [phone] documented as of this encounter Visit Diagnoses Not on filedocumented in this encounter Care Teams Team MemberRelationshipSpecialtyStart DateEnd Date Ezio Amado MD [address] [place] [phone] PCP - GeneralFamily Medicine01/19/25 Arline Rouse MD [address] [place] [address] Nurse PractitionerFamily Medicine01/19/25documented as of this encounter
--- OUTSIDE RECORDS SUMMARY | 2025-06-09 17:58 | XMS_ITS | Clinical Summary ---
Author Organization [facility] Address [address] [place] [address] Care Team Providers Care Energy And Conservation Technician Name Role Phone Arline Rouse MD Unavailable [phone] Ezoi Amado MD Primary Care Provider [phone] Allergies Active AllergyReactionsCriticalityNoted DxtkRgihvjhdCcnzmemnoRieucbe71/03/2022 Other Reaction(s): Flatulence Bloating and gas Exfvtfzfywzf46/21/2024 Other Reaction(s): stomach problems ProchlorperazineAnxiety,KbdrzPcj61/02/2022 flatulence Medications MedicationSigDispense QuantityRefillsLast FilledStart DateEnd DateStatus sertraline (Zoloft) 100 MG tablet Indications:Depression, unspecified depression typeTAKE 1 TABLET BY MOUTH DAILY 90 tablet 4Active atorvastatin (Lipitor) 40 MG tablet Active isosorbide mononitrate ER (Imdur) 30 MG 24 hr tablet Indications:CAD in [place] arteryTake 1 tablet (30 mg) by mouth Daily 30 tablet 1104//086497/6Active lisinopril 40 MG tablet Indications:Essential hypertension, benignTake [...] MINI PEN NEEDLES) 31G x 5 [facility] Indications:Type 2 diabetes mellitus with hyperglycemia, with [...] BY MOUTH 4 TIMES A DAY FOR JWTHVNG7412/21/2024tive levothyroxine (Synthroid, Levoxyl) 200 MCG tablet Take 200 mcg by mouth Daily5Active liothyronine (Cytomel) 5 MCG tablet TAKE 1 TABLET BY MOUTH EVERY DAY ON EMPTY STOMACH FOR 30 DAYS5Active Active Problems ProblemNoted DateDiagnosed DateAge-related nuclear cataract of both eyes 03/08/2025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 egcfztov75/29/2025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 associated with type 2 diabetes kgiiqhqi41/29/2025Essential hypertension, evpmba0909/16/2023 Primary osteoarthritis of both knees09/16/2023 Assessment & Plan (09/16/2023 11:03 AM EST): Increased pain and swelling for months and x-ray with OA. Start prednisone. Use percocet PRN. [facility] for evaluation. Patient declined PT. CAD in [place] lgnjoz7409/16/2023irrhosis of liver without lnkauyj1609/16/2023OPD (chronic obstructive pulmonary disease)09/16/20233819Cwuvdmplkyis78/06/2024 Generalized anxiety vjdjrolr66/06/2024Gastroesophageal reflux jzreill3709/16/2023 Sisi's fsszdjl7709/16/2023Hyperammonemia, type III09/16/2023Insomnia 09/16/2023Lumbosacral radiculopathy due to degenerative joint disease of spine 09/16/2023Obstructive sleep apnea (adult) (pediatric)09/16/2023Type 2 diabetes mellitus with hyperglycemia, with long-term current use of qwyhcpx4209/16/2023 Diabetic bqkgizngvkrcqz76/06/2024estless leg ofjhfflw91/06/2024DD (degenerative disc disease), klmkjlne28/06/2024Seasonal allergic rhinitis due to fzrxcs7809/16/2023Mild nonproliferative diabetic retinopathy associated with type 2 diabetes xbsmqbna00/26/2018 Encounters DateTypeDepartmentCare TtxvPplpfjmqsmw64/23/2025 2:00 PM EDTClinical Support [facility] [address] [place] [address] Kirby Florian, DO Retinal Yvtfejyjc96/23/2025amboo flowsheet [facility] [address] [place] [address] Kirby Florian, DO 05/03/20259478Jbjidq34/11/2025bstract [facility] [address] [place] [address] Carlos Burns DPM 04/21/2025Telephone [facility] [address] [place] [phone] Carlos Burns DPM No Show (Hx of No Shows)04/20/20255639Snpmoa45/25/8393Atzmht67/15/2025Refill [facility] [address] [place] [address] Ayden Ashford MD Type 2 diabetes mellitus with hyperglycemia, with long-term current use of insulin ([facility])03/23/2025 1:45 PM EDTClinical Support [facility] [address] [place] [address] Kirby Florian, DO Retinal Wutaalqiv53/13/2025amboo flowsheet [facility] [address] [place] [address] Kirby Florian, 03/23/20259619Ihpinh00/31/2025 4:00 PM EDTOffice Visit [facility] [address] [place] [address] Carlos Burns DPM Diabetic polyneuropathy associated with type 2 diabetes mellitus (HCC) (Primary Dx); Type II diabetes mellitus with peripheral circulatory disorder (HCC); Encounter for long-term (current) use of insulin ([facility])03/10/2025amb flowsheet [facility] [address] [place] [address] Carlos Burns DPM 03/10/20251295Twyvbc68/30/7707Jahpdz01/30/2025Orders Only [facility] [address] [place] [address] Kirby Florian DO 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); 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 associated with type 2 diabetes mellitus (HCC)from Last 3 Months Immunizations ImmunizationAdministration DatesNext DueInfluenza, [...] ValueDate RecordedSex Assigned at BirthNot on fileLegal GshJtwr7910/23/2022 7:00 PM EDTGender IdentityNot on fileSexual OrientationNot on file Last Filed Vital Signs Vital SignReadingTime TakenCommentsBlood Ruanzfrv777/5059309/16/2023 10:37 AM EST Wjpco850909/16/2023 10:37 AM LOUYjiexjcxqcz60.9 ??C (96.6 ??F)09/16/2023 10:37 AM ESTRespiratory Rate--Oxygen Ivtzmqxfal07%09/16/2023 10:37 AM ESTInhaled Oxygen Concentration--Rfcbtd698 kg (330 lb)03/10/2025 4:14 PM FDCYaedrl080.8 cm (5' 10 )03/10/2025 4:14 PM EDTBody Mass Index47.35003/10/2025 4:14 PM EDT Plan of Treatment DateTypeDepartmentCare Team (Latest Contact Info)Qzduencrqne99/11/2025 1:30 PM ESTProcedure Visit [facility] [address] [place] [address] Carlos Burns DPM [address] [place] [address] Procedures Procedure NamePriorityDate/TimeAssociated DiagnosisCommentsINTRAVITREAL INJECTION, PHARMACOLOGIC AGENT - OD - RIGHT DYEOdqutks19/23/2025 3:21 PM EDT 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) INTRAVITREAL INJECTION, PHARMACOLOGIC AGENT - OS - LEFT QLEFwvsdvs25/23/2025 3:17 PM EDT 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 associated with type 2 diabetes mellitus (HCC) OCT, RETINA - OU - BOTH NZDHXefbcnp88/23/2025 2:00 PM EDT 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 ?? Authorizing ProviderResult TypeResult StatusKirby Florian [facility] PROCEDURESFinal Result * Intravitreal Injection, Pharmacologic Agent [...] 1.25 MG/0.05ML ??Route: Intravitreal, Site: Left Eye ??[facility]: [id number], Lot: [id number], Expiration date: 06/28/2025 Post-op Post injection exam [...] decreased vision or concerns. ?? Authorizing ProviderResult TypeResSaint Francis Medical Centersilvestre Myersbharti [facility] PROCEDURESFinal Result * OCT, Retina - OU [...] abnormal foveal contour, intraretinal fluid. Authorizing ProviderResult [facility] Simmons [facility] TOMOGRAPHY Edited Result - Final * Intravitreal [...] 1.25 MG/0.05ML ??Route: Intravitreal, Site: Right Eye ??[facility]: [id number], Lot: [id number], Expiration date: 04/18/2025 Post-op Post injection exam [...] vision or concerns. ?? Authorizing ProviderResult TypeResult StatusJomerly Florian [facility] PROCEDURESFinal Result from Last 3 Months Insurance Care Teams Team MemberRelationshipSpecialtyStart Ezio Amado MD [address] [place] [phone] PCP - GeneralFamily Medicine01/19/25 Arline Rouse MD [facility] [place] [address] Nurse PractitionerFamily Medicine01/19/25
--- OUTSIDE RECORDS SUMMARY | 2025-06-09 17:59 | XMS_ITS | Clinical Summary ---
Author Organization [employer] [facility] Address [id number] [place] [address] Care Team Providers Care Rush Seater Name Role Phone Pcp, Not In System Primary Care Provider Unavail able Allergies Active AllergyReactionsCriticalityNoted NtprYweygnfrTaylvytmy27/03/2022 Bloating and gas Other06/20/2016 COMPAZINE Prochlorperazine Medications [...] Active Problems ProblemNoted DateDiagnosed DateLower urinary tract iqhslehu84/16/2016 Overview (06/26/2016): +++++++++ 06/26/2016 ALLSCRIPTS SUMMARY +++++++++++ New problem as of March 2016. Uroflow postvoid residual ordered. Microscopic zeivaakhx45/16/2016 Overview (06/26/2016): +++++++++ 06/26/2016 ALLSCRIPTS SUMMARY +++++++++++ [...] of Binge DrinkingNot on file09/16/2018ChildcareAnswerDate RecordedChildcareUnknown 01/14/2019EmploymentAnswerDate DnvfswuiEggiaowqhoDkahuak56/06/2019Purpose - Life AnswerDate RecordedPurpose and direction in heroDsytzar00/11/2021ex and Gender InformationValueDate RecordedSex Assigned at BirthNot on fileLegal SexMale 03/16/2015 11:54 AM EDTGender IdentityNot on fileSexual OrientationNot on file Last Filed Vital Signs Vital SignReadingTime TakenCommentsBlood Hlpdfisp578/5008 11:50 PM EDT Lvfmm1298 12:10 AM JFEYqhogdbwfwk70.6 ??C (97.8 ??F)03/13/2022 5:42 PM EDTRespiratory Ncog006003/13/2022 6:30 PM EDTOxygen Gntdpzhjtc31%03/14/2022 12:10 AM EDTInhaled Oxygen Concentration--Qrzbsp912 kg (363 lb 11.2 oz)03/13/2022 5:42 PM ICIFdpirk705.8 cm (5' 10 )03/13/2022 5:42 PM EDTBody Mass Index52.19 03/13/2022 5:42 PM EDT Plan of Treatment Health MaintenanceDue DateLast DoneCommentsDepression Ldnfsmxug13/19/1970Tobacco Sogcjzmqg06/19/1970Adult BMI Rbflrnyoa14/19/1976DTaP,Tdap and Td Vaccines (1 - Tdap)1976Zoster (Shingles) Vaccine (1 of 2)11/28/2007Fall Risk Screening 2022Influenza Lwaniat9004/11/2025 Medical Devices Not on file Insurance * Guarantor: Stephane Patterson LAccount TypeRelation to PatientDate of BirthPhone Billing AddressPersonal/VgwupgNwsb52/19/[address] [address] Care Teams Team MemberRelationshipSpecialtyStart DateEnd Date Pcp, [place] [address] PCP - [facility] Medicine03/13/22
--- OUTSIDE RECORDS SUMMARY | 2025-06-09 17:59 | XMS_ITS | Patient Health Record ---
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 Role Phone Arline Lazar Primary Care Provider Desean Mensah Unavailable [phone] Estephania Cowart Unavailable [phone] Kwasi Amado Unavailable [phone] Allergies Allergen (clinical drug ingredient) Drug/Non Drug Allergy documented on EMR Reaction Allergy Type Onset Date Status CompazineAnxietyDrug AllergyActivemetforminMetforminGI UpsetDrug AllergyActive Results Component Value Reference Range Notes CRP Reviewed date:03/28/2025 11:39:16 AM Interpretation: Performing Lab: Notes/Report: [facility] , C Reactive Protein 0.78 <=0.50 mg/dL Performing Lab:see noteML - [facility] LBIRON Reviewed date:03/29/2025 01:07:07 PM Interpretation: Performing Lab: Notes/Report: [facility] ,Iron44.065.0-175.0 ug/dLPerforming Lab:see noteML - [facility] LBCBC AUTO DIFF Reviewed date:10/11/2024 10:47:22 AM Interpretation: Performing Lab: Notes/Report: [facility] ,White Blood Count7.94.0-11.0 10 3/uLRed Blood Count4.204.70-6.10 10 6/uL Brwnbdyudm34.314.0-18.0 g/zFNalukavyvb85.942.0-54.0 %Mean Corpuscular Atyali30.2 80.0-94.0 fLMean Corpuscular Phfamltakh66.325.9-34.0 pgMean Corpuscular HGB Conc 32.529.9-35.2 g/dLRed Cell Distribution Width15.211.0-15.0 %Platelet Gcbma065 150-450 10 3/uLMean Platelet Joyivj15.09.5-13.5 fLNeutrophils Percent Auto57.3 43.0-75.0 %Lymphocytes Percent Auto23.420.5-60.0 %Monocytes Percent Auto9.41.7- 12.0 %Eosinophils Percent Auto7.90.9-7.0 %Basophils Percent Auto1.70.2-2.0 % Immature Granulocytes Pct Auto0.30.0-0.5 %Neutrophils Absolute Auto4.51.4-6.5 10 3/uLLymphocytes Absolute Auto1.81.2-3.8 10 3/uLMonocytes Absolute Auto0.70.3-0.8 10 3/uLEosinophils Absolute Auto0.60.0-0.7 10 3/uLBasophils Absolute Auto0.10.0- 0.1 10 3/uLImmature Granulocytes Abs Auto0.020.00-0.03 10 3/uLPerforming Lab:see noteML - [facility] LBFREE T3 Reviewed date:10/11/2024 10:47:22 AM Interpretation: Performing Lab: Notes/Report: [facility] ,Free T32.292.18-3.98 pg/mLPerforming Lab:see noteML - [facility] LB GLYCOHEMOGLOBIN A1C Reviewed date:10/11/2024 10:47:22 AM Interpretation: Performing Lab: Notes/Report: [facility] ,Glycohemoglobin A1C6.94.5-6.2 % ADA RECOMMENDED LIMIT 4.0 - 6.0 ADA THERAPEUTIC TARGET < 7.0 ACTION SUGGESTED > 7.0 Estimated Average Fxywpyk749Frrfilsngg Lab:see note - [facility] LB INSULIN Reviewed date:10/11/2024 10:47:22 AM Interpretation: Performing Lab: Notes/Report: [facility] ,Gopwpgl52.82.6-24.9 uIU/mL Performed at: [facility] [address] [id number] [employer] Administrator: Genaro Becerril PhD, Phone: [phone] Performing Lab:see noteLC - [facility] LBLIPID PROFILE Reviewed date:10/11/2024 10:47:22 AM Interpretation: Performing Lab: Notes/Report: [facility] ,Gunquszqxgqxb519<=150 mg/xPGevwtoxxcad622<=200 mg/dLHDL Iplvaxxmqdc8598-76 mg/dL > or =60 mg/dl - LOW CARDIOVASCULAR RISK <40 mg/dl - HIGH CARDIOVASCULAR RISK LDL Cholesterol Xtjxqhhtnm45.2 <100 mg/dl OPTIMAL 100-129 mg/dl NEAR OR ABOVE OPTIMAL 130-159 mg/dl BORDERLINE HIGH 160-189 mg/dl HIGH >190 mg/dl VERY HIGH VLDL WGZCIAWWYHG10.8Chol HDL Ratio3.3 3.3 - 4.4 LOW RISK 4.4 - 7.1 AVERAGE RISK 7.1 - 11.0 MODERATE RISK >11.0 HIGH RISK Performing Lab:see noteML - [facility] LBPROF 14(COMP METB) Reviewed date:10/11/2024 10:47:22 AM Interpretation: Performing Lab: Notes/Report: [facility] ,Ezvzel651824-038 mmol/LPotassium4.03.5-5.1 mmol/PXglibmmm04464-639 mmol/LCarbon Eyfnkws18.721.0-32.0 mmol/LAnion Gap16.1Ddhchjm15072-548 mg/dLBlood Urea Hzgerptz65.07.0-18.0 mg/dLCreatinine1.510.70-1.30 mg/dLEstimated GFR ( Lehptqc96>=60 mL/min/1.73m 2Estimated GFR (Non- Ame46>=60 mL/min/1.73m 2 BUN Creatinine Ratio14.2Ntwlhzj9.18.5-10.1 mg/dLBilirubin Total0.90.2-1.0 mg/dL Aspartate Amino Xnfeouviztq9657-57 U/LAlanine Jdynjmwhpbpsgkmf2547-48 U/L Alkaline Maflzgcziup29331-579 U/LTotal Protein8.26.4-8.2 g/dLAlbumin Level3.0 3.4-5.0 g/dLGlobulin5.2Albumin Globulin Ratio0.6Performing Lab:see noteML - [facility] LBPSA SCREENING Reviewed date:10/11/2024 10:47:22 AM Interpretation: Performing Lab: Notes/Report: [facility] ,Prostate Specific Antigen Scrn1.38<=4.00 ng/mLPerforming Lab:see noteML - [facility] LBT4 Reviewed date:10/11/2024 10:47:22 AM Interpretation: Performing Lab: Notes/Report: [facility] ,T4 Thyroxine7.004.50-12.10 ug/dLPerforming Lab:see noteML - [facility] LBTSH Reviewed date:10/11/2024 10:47:22 AM Interpretation: Performing Lab: Notes/Report: [facility] ,Thyroid Stimulating Hormone0.1360.358-3.740 uIU/mLPerforming Lab:see noteML - [facility] LBUA RANDOM W or MICROSCOPIC Reviewed date:10/11/2024 10:47:22 AM Interpretation: Performing Lab: Notes/Report: [facility] ,Color UrineLT. YELLOWYELLOWClarity UrineCLEARCLEARSpecific [place] Urine1.025 1.005-1.025pH Urine6.05.0-9.0Protein Bvecq935XGJ/TRACE mg/dLGlucose Urine UA NEGATIVENEGATIVE mg/dLBilirubin UrineNEGATIVENEGATIVEKetones UrineNEGATIVE NEGATIVE mg/dLBlood UrineMODERATENEGATIVENitrite UrineNEGATIVENEGATIVE Urobilinogen Urine0.20.2-1.0 EU/dLLeukocyte Esterase UrineNEGATIVENEGATIVEWBC Urine0-2NONE SEEN #/HPFRBC Urine2-50-2 #/HPFBacteria UrineTRACENONE SEEN #/HPF Mucus UrineNONE SEENNONE SEENSquamous Epithelial Cell UrineRARENONE/RARE #/LPF Crystals Seen?None SeenNone Seen #/HPFCast Seen?SEENNONE SEEN #/LPFHyaline Casts UrineRAREUrine Culture IndicatedALREADY ORDEREDPerforming Lab:see noteML - [facility] LBURIC ACID SERUM Reviewed date:10/11/2024 10:47:22 AM Interpretation: Performing Lab: Notes/Report: [facility] ,Uric Acid7.03.5-7.2 mg/dLPerforming Lab:see noteML - [facility] LB CEA Reviewed date:10/11/2024 10:47:22 AM Interpretation: Performing Lab: Notes/Report: [facility] ,CEA3.50.0-4.7 ng/mL Nonsmokers <3.9 Smokers <5.6 [employer] [employer] Electrochemiluminescence Immunoassay (ECLIA) Values obtained with different assay methods or kits cannot be used interchangeably. Results cannot be interpreted as absolute evidence of the presence or absence of malignant disease. Performing Lab:see noteLC - [facility] LBCA 19-9 Reviewed date:10/11/2024 10:47:22 AM Interpretation: Performing Lab: Notes/Report: [facility] ,CA 19-9170-35 U/mL [employer] Electrochemiluminescence Immunoassay (ECLIA) Values obtained with different assay methods or kits cannot be used interchangeably. Results cannot be interpreted as absolute evidence of the presence or absence of malignant disease. Performed at: [address] [id number] [employer] Administrator: Genaro Becerril PhD, Phone: [phone] Performing Lab:[facility] LBUrine Culture, Routine Reviewed date:10/11/2024 10:47:21 AM Interpretation: Performing Lab: Notes/Report: [facility] ,Urine Culture, RoutineSee Below For Report Urine Culture, Routine Urine Culture, RoutineMixed urogenital shaggy Urine Culture, Routine Urine Culture, Zmkcavs59,000-25,000 colony forming units per mL Urine Culture, Routine Urine Culture, RoutinePerformed at: [facility] Urine Culture, Routine Urine Culture, [address] [place] [id number] Urine Culture, Routine Urine Culture, RoutineLab Director: Genaro Becerril PhD, Phone: [phone] Urine Culture, Routine Performing Lab:see note LC - [facility] LB SEE REPORT - Floor Person 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 Date of Service: 10/09/24 Procedure(s): CT abdomen pelvis w con Accession Number(s): [id number] cc: ARLINE LAZAR [place] [id number] Patient Name: EVELIN PATTERSON MRN: [id number] date: 1955 Sex: M Assigned Patient Location: ER Current Patient Location: ER Accession/Order Number: [id number] Exam Date: 10/09/2024 11:19 Report Date: 10/09/2024 [...] Bon Doherty M.D.10/09/2024 11:27 AM Dictation Location: [place] [address] Electronically authenticated by: [id number] Y Date: 10/09/2024 11:27 Dictated By: Bon Doherty M.D. Signed By: 10/09/24 1130 DD/ 1127 TD/TT: Surface Lay Out Technician:XR lumbar spine bending only Reviewed date:10/18/2024 10:47:16 AM Interpretation: Performing Lab: Notes/Report: Source Facility: [place] [address] XRay Report Signed Patient: EVELIN PATTERSON MR#: [id number] : 1955 Acct:[id number] Age/Sex: 68 / M ADM Date: 10/15/24 Loc: EC Attending Dr: Conrad Lema M.D. Ordering Physician: Conrad Lema M.D. Date of Service: 10/15/24 Procedure(s): XR lumbar spine bending only Accession Number(s): [id number] cc: ARLINE LAZAR ; Conrad Lema M.D. [place] [address] Patient Name: EVELIN PATTERSON MRN: [id number] date: 1955 Sex: M Assigned Patient Location: Current Patient Location: Accession/Order Number: [id number] Exam Date: 10/15/2024 21:53 Report Date: 10/15/2024 [...] greater than 50%. Impression dictated by: Michael Tinajero M.D.10/15/2024 10:06 PM Dictation Location: [place] [address] Electronically authenticated by: [id number] Y Date: 10/15/2024 22:06 Dictated By: Michael Tinajero D.O. Signed By: 10/15/242207 DD/ 05 TD/TT: Surface Lay Out Technician:CBC AUTO DIFF Reviewed date:11/18/2024 04:06:06 PM Interpretation: Performing Lab: Notes/Report: [facility] ,White Blood Count8.14.0-11.0 10 3/uLRed Blood Count4.104.70-6.10 10 6/uL Gxdyhxykgj37.614.0-18.0 g/vESdzyfulvef63.242.0-54.0 %Mean Corpuscular Cyaqsz10.3 80.0-94.0 fLMean Corpuscular Korvnjhwnt56.325.9-34.0 pgMean Corpuscular HGB Conc 32.029.9-35.2 g/dLRed Cell Distribution Width14.611.0-15.0 %Platelet Ijdep645 150-450 10 3/uLMean Platelet Jvekbj74.29.5-13.5 fLNeutrophils Percent Auto59.3 43.0-75.0 %Lymphocytes Percent Auto22.820.5-60.0 %Monocytes Percent Auto9.71.7- 12.0 %Eosinophils Percent Auto6.90.9-7.0 %Basophils Percent Auto1.10.2-2.0 % Immature Granulocytes Pct Auto0.20.0-0.5 %Neutrophils Absolute Auto4.81.4-6.5 10 3/uLLymphocytes Absolute Auto1.91.2-3.8 10 3/uLMonocytes Absolute Auto0.80.3-0.8 10 3/uLEosinophils Absolute Auto0.60.0-0.7 10 3/uLBasophils Absolute Auto0.10.0- 0.1 10 3/uLImmature Granulocytes Abs Auto0.020.00-0.03 10 3/uLPerforming Lab:see noteML - [facility] LBPROF CHEM 8 (BAS METB) Reviewed date:11/18/2024 04:06:06 PM Interpretation: Performing Lab: Notes/Report: [facility] ,Uxxlfe769818-640 mmol/LPotassium3.93.5-5.1 mmol/HLdishjud05344-202 mmol/LCarbon Wpoewwq43.221.0-32.0 mmol/LAnion Gap12.8Irqvamm09868-102 mg/dLBlood Urea Fjgltmuu65.07.0-18.0 mg/dLCreatinine1.260.70-1.30 mg/dLEstimated GFR ( Lilibeth>60>=60 mL/min/1.73m 2Estimated GFR (Non- Ame57>=60 mL/min/1.73m 2 BUN Creatinine Ratio13.4Tardzfn1.68.5-10.1 mg/dLPerforming Lab:see noteML - [facility] LBCA echo doppler complete Reviewed date:11/18/2024 04:06:06 PM Interpretation: Performing Lab: Notes/Report: Source Facility: [facility]-[address] [place] [address] [place] [address] Cardiology Report Signed Patient: EVELIN PATTERSON MR#: [id number] : 1955 Acct:[id number] Age/Sex: 68 / M ADM Date: 11/17/24 Loc: CARD Attending Dr: Barb Vee M.D. Ordering Physician: Barb Vee M.D. Date of Service: 11/17/24 Procedure(s): CA echo doppler complete Accession Number(s): [id number] cc: ARLINE LAZAR ; Barb Vee M.D. Patient Name: EVELIN PATTERSON MR#: [id number] : 1955 Exam Date: 11/17/2024 Ordering Doctor: [...] DONOHUE Signed By: 11/17/241903 DD/ 02 TD/TT: Surface Lay Out Technician:INGA EGAN 3V Reviewed date:12/23/2024 01:21:09 PM Interpretation: Performing Lab: Notes/Report: Source Facility: [facility]-[address] [place] [address] [place] [address] XRay Report Signed Patient: EVELIN PATTERSON MR#: [id number] : 1955 Acct:[id number] Age/Sex: 69 / M ADM Date: 12/23/24 Loc: CARD Attending Dr: ARLINE LAZAR Ordering Physician: ARLINE LAZAR Date of Service: 12/23/24 Procedure(s): XR knee RT 3V Accession Number(s): [id number] cc: ARLINE LAZAR [place] [address] Patient Name: EVELIN PATTERSON MRN: [id number] date: 1955 Sex: M Assigned Patient Location: CARD Current Patient Location: CARD Accession/Order Number: [id number] Exam Date: 12/23/2024 11:45 Report Date: 12/23/2024 [...] Doherty M.D. 12/23/2024 11:46 AM Dictation Location: [place] [address] Electronically authenticated by: [id number] Y Date: 12/23/2024 11:46 Dictated By: Bon Doherty M.D. 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 Measurements Intervals [place] Rate: 83 P: ME: QRS: 14 QRSD: 77 T: 41 QT: 378 QTc: 445 Interpretive Statements ATRIAL FIBRILLATION ABNORMAL ECG Compared to ECG 02/19/2024 08:07:42 No significant changes Electronically Signed On 12-23-2024 19:43:46 EDT by SHANEL DONOHUE M.D. Dictated By: SHANEL DONOHUE Signed By: 12/23/24194312/23/241943 DD/ 0 TD/TT: Surface Lay Out Technician:CBC AUTO DIFF Reviewed date:03/28/2025 11:39:16 AM Interpretation: Performing Lab: Notes/Report: [facility] ,White Blood Count6.74.0-11.0 10 3/uLRed Blood Count3.544.70-6.10 10 6/uL Hemoglobin9.614.0-18.0 g/gBCdnunvvqzb58.542.0-54.0 %Mean Corpuscular Ynkzdr35.2 80.0-94.0 fLMean Corpuscular Kbounqbshp94.125.9-34.0 pgMean Corpuscular HGB Conc 31.529.9-35.2 g/dLRed Cell Distribution Width16.311.0-15.0 %Platelet Mqxyc426 150-450 10 3/uLMean Platelet Volume9.99.5-13.5 fLNeutrophils Percent Auto59.0 43.0-75.0 %Lymphocytes Percent Auto22.120.5-60.0 %Monocytes Percent Auto9.81.7- 12.0 %Eosinophils Percent Auto7.70.9-7.0 %Basophils Percent Auto1.20.2-2.0 % Immature Granulocytes Pct Auto0.20.0-0.5 %Neutrophils Absolute Auto3.91.4-6.5 10 3/uLLymphocytes Absolute Auto1.51.2-3.8 10 3/uLMonocytes Absolute Auto0.70.3- 0.8 10 3/uLEosinophils Absolute Auto0.50.0-0.7 10 3/uLBasophils Absolute Auto0.1 0.0-0.1 10 3/uLImmature Granulocytes Abs Auto0.010.00-0.03 10 3/uLPerforming Lab:see [facility] LBFREE T3 Reviewed date:03/28/2025 11:39:16 AM Interpretation: Performing Lab: Notes/Report: [facility] ,Free T31.142.18-3.98 pg/mLPerforming Lab:see [facility] GLYCOHEMOGLOBIN A1C Reviewed date:03/28/2025 11:39:16 AM Interpretation: Performing Lab: Notes/Report: [facility] ,Glycohemoglobin A1C8.94.5-6.2 % ADA RECOMMENDED LIMIT 4.0 - 6.0 ADA THERAPEUTIC TARGET < 7.0 ACTION SUGGESTED > 7.0 Estimated Average Ugqesvg804Ursbamfbrp Lab:see [facility] LB INSULIN Reviewed date:03/28/2025 11:39:16 AM Interpretation: Performing Lab: Notes/Report: [facility] ,Nstuygt91.12.6-24.9 uIU/mL Performed at: [address] [id number] [employer] Administrator: Genaro Becerril PhD, Phone: [phone] Performing Lab:[facility] LBLIPID PROFILE Reviewed date:03/28/2025 11:39:16 AM Interpretation: Performing Lab: Notes/Report: [facility] ,Pnkxbkmgsmaic195<=150 mg/nCLzsamodcifg794<=200 mg/dLHDL Ftwgirudqoz6361-65 mg/dL > or =60 mg/dl - LOW CARDIOVASCULAR RISK <40 mg/dl - HIGH CARDIOVASCULAR RISK LDL Cholesterol Xicholtuhl946.0 <100 mg/dl OPTIMAL 100-129 mg/dl NEAR OR ABOVE OPTIMAL 130-159 mg/dl BORDERLINE HIGH 160-189 mg/dl HIGH >190 mg/dl VERY HIGH VLDL LHCMMQHYBII90.2Chol HDL Ratio5.7 3.3 - 4.4 LOW RISK 4.4 - 7.1 AVERAGE RISK 7.1 - 11.0 MODERATE RISK >11.0 HIGH RISK Performing Lab:see note - [facility] LBPROF 14(COMP METB) Reviewed date:03/28/2025 11:39:16 AM Interpretation: Performing Lab: Notes/Report: [facility] ,Nxykci481564-550 mmol/LPotassium5.13.5-5.1 mmol/GGsuywymo16091-087 mmol/LCarbon Pqhxcsm31.121.0-32.0 mmol/LAnion Gap10.5Sybmsyv19155-722 mg/dLBlood Urea Lgmsqdch13.07.0-18.0 mg/dLCreatinine1.380.70-1.30 mg/dLEstimated GFR ( Lilibeth>60>=60 mL/min/1.73m 2Estimated GFR (Non- Ame51>=60 mL/min/1.73m 2 BUN Creatinine Ratio13.4Zrkcyrx1.78.5-10.1 mg/dLBilirubin Total0.60.2-1.0 mg/dL Aspartate Amino Snmxouocilx9814-26 U/LAlanine Aqvwxvqfbmhelage9585-02 U/L Alkaline Rhppkkqthfv26884-982 U/LTotal Protein8.16.4-8.2 g/dLAlbumin Level2.6 3.4-5.0 g/dLGlobulin5.5Albumin Globulin Ratio0.5Performing Lab:see note - [facility] LBPSA SCREENING Reviewed date:03/28/2025 11:39:16 AM Interpretation: Performing Lab: Notes/Report: [facility] ,Prostate Specific Antigen Scrn0.83<=4.00 ng/mLPerforming Lab:see noteML - [facility] LBT4 Reviewed date:03/28/2025 11:39:16 AM Interpretation: Performing Lab: Notes/Report: [facility] ,T4 Thyroxine5.604.50-12.10 ug/dLPerforming Lab:see note - [facility] LBTSH Reviewed date:03/28/2025 11:39:16 AM Interpretation: Performing Lab: Notes/Report: [facility] ,Thyroid Stimulating Hormone2.8050.358-3.740 uIU/mLPerforming Lab:see noteML - [facility] LBUA RANDOM W or MICROSCOPIC Reviewed date:03/28/2025 11:39:16 AM Interpretation: Performing Lab: Notes/Report: [facility] ,Color UrineYELLOWYELLOWClarity UrineCLEARCLEARSpecific [place] Urine1.020 1.005-1.025pH Urine6.05.0-9.0Protein Eidbb32ACN/TRACE mg/dLGlucose Urine UA250 NEGATIVE mg/dLBilirubin UrineNEGATIVENEGATIVEKetones UrineTRACENEGATIVE mg/dL Blood UrineSMALLNEGATIVENitrite UrineNEGATIVENEGATIVEUrobilinogen Urine0.20.2- 1.0 EU/dLLeukocyte Esterase UrineNEGATIVENEGATIVEWBC Urine0-2NONE SEEN #/HPFRBC Urine2-50-2 #/HPFBacteria UrineTRACENONE SEEN #/HPFMucus UrineTRACENONE SEEN Squamous Epithelial Cell UrineRARENONE/RARE #/LPFCrystals Seen?None SeenNone Seen #/HPFCast Seen?NONE SEENNONE SEEN #/LPFUrine Culture IndicatedNOPerforming Lab:see noteML - [facility] LBVitamin B12 Reviewed date:03/28/2025 11:39:16 AM Interpretation: Performing Lab: Notes/Report: [facility] ,Vitamin V60165602-0634 pg/mL Performed at: [address] [id number] [employer] Administrator: Genaro Becerril PhD, Phone: [phone] Performing Lab[facility] LBPROF 14(COMP METB) Reviewed date:06/30/2024 12:04:17 PM Interpretation: Performing Lab: Notes/Report: [facility] ,Cgdxkc859211-589 mmol/LPotassium4.33.5-5.1 mmol/LSPECIMEN SLIGHTLY HEMOLYZED Qoauessw72254-342 mmol/LCarbon Iakqwxz69.121.0-32.0 mmol/LAnion Gap14.2Glucose 79585-507 mg/dLBlood Urea Dtbqlbdv95.07.0-18.0 mg/dLCreatinine1.440.70-1.30 mg/dLEstimated GFR ( Bykewpk75>=60 mL/min/1.73m 2Estimated GFR (Non- Ame49>=60 mL/min/1.73m 2BUN Creatinine Ratio11.0Snriocy0.38.5-10.1 mg/dL Bilirubin Total0.90.2-1.0 mg/dLAspartate Amino Xszmnteetax2415-59 U/LSPECIMEN SLIGHTLY HEMOLYZEDAlanine Buvvnnugzwlytnis8018-26 U/LAlkaline Zjvprqlloor64655- 116 U/LTotal Protein8.36.4-8.2 g/dLAlbumin Level2.93.4-5.0 g/dLGlobulin5.4 Albumin Globulin Ratio0.5Performing Lab:see noteML - [facility] LB LIPID PROFILE Reviewed date:06/30/2024 12:04:17 PM Interpretation: Performing Lab: Notes/Report: [facility] ,Ldblahdchpszu340<=150 mg/mRPlfwxqvvreh243<=200 mg/dLHDL Opzvzccbndw0883-75 mg/dL > or =60 mg/dl - LOW CARDIOVASCULAR RISK <40 mg/dl - HIGH CARDIOVASCULAR RISK LDL Cholesterol Ibuuqwremc701.2 <100 mg/dl OPTIMAL 100-129 mg/dl NEAR OR ABOVE OPTIMAL 130-159 mg/dl BORDERLINE HIGH 160-189 mg/dl HIGH >190 mg/dl VERY HIGH VLDL DLMMVYSHKRA61.8Chol HDL Ratio4.0 3.3 - 4.4 LOW RISK 4.4 - 7.1 AVERAGE RISK 7.1 - 11.0 MODERATE RISK >11.0 HIGH RISK Performing Lab:see noteML - [facility] LBUrine Culture - [facility] Reviewed date:03/28/2025 11:39:16 AM Interpretation: Performing Lab: Notes/Report: [facility] ,Urine Culture - FRMCSee Below For Report Urine Culture - [facility] 20,000 colonies/ml mixed Urine Culture - FRMCbacterial skin contaminants Urine Culture - [facility] 20,000 colonies/ml mixed Urine Culture - [facility]2 Days Urine Culture - [facility] 20,000 colonies/ml mixed Urine Culture - [facility] Urine Culture - [facility] 20,000 colonies/ml mixed Urine Culture - FRMCTesting [facility] at [facility] Urine Culture - [facility] 20,000 colonies/ml mixed Urine Culture - [id number] [place] [address] Urine Culture - [facility] 20,000 colonies/ml mixed Performing Lab:see noteML - [facility] LBAcute Hepatitis Reviewed date:06/07/2025 08:39:41 AM Interpretation: Performing Lab: Notes/Report: [facility] ,Hep A Ab, IgMNegativeNegative A negative anti-HAV IgM result suggests no recent or current HAV infection. HBsAg ScreenNegativeNegativeHep B Core Ab, IgMNegativeNegativeHCV AbNon Reactive Non ReactiveInterpretation:Comment. Not infected with HCV unless early or acute infection is suspected (which may be delayed in an immunocompromised individual), or other evidence exists to indicate HCV infection. Performed at: - [facility] [id number] [employer] Administrator: Genaro Becerril PhD, Phone: [phone] Performing Lab:see noteLC - [facility] LBXR chest 2V Reviewed date:06/07/2025 08:39:41 AM Interpretation: Performing Lab: Notes/Report: Source Facility: [place] [address] XRay Report Signed Patient: EVELIN PATTERSON MR#: [id number] : 1955 Acct:[id number] Age/Sex: 69 / M ADM Date: 06/06/25 Loc: LAB Attending Dr: ARLINE LAZAR Ordering Physician: ARLINE LAZAR Date of Service: 06/06/25 Procedure(s): XR chest 2V Accession Number(s): [id number] cc: ARLINE LAZAR [place] [id number] Patient Name: EVELIN PATTERSON MRN: [id number] date: 1955 Sex: M Assigned Patient Location: LAB Current Patient Location: LAB Accession/Order Number: [id number] Exam Date: 06/06/2025 15:12 Report Date: 06/06/2025 18:01 At the request of: ARLINE LAZAR Procedure: XR chest 2V PA AND LATERAL CHEST: CLINICAL HISTORY: copd chronic cough for 6 months, shortness breath for 6 months COMPARISON: CT chest 02/15/2024 FINDINGS: Mildly enlarged cardiomediastinal silhouette.. Lungs are clear. No focal airspace opacity effusion or pneumothorax. XR/XR chest 2V IMPRESSION: NO ACUTE CARDIOPULMONARY ABNORMALITY. Impression dictated by: Dimitry Arguello M.D. 06/06/2025 6:01 PM Dictation Location: [place] [address] Electronically authenticated by: [id number] Y Date: 06/06/2025 18:01 Dictated By: Dimitry Arguello M.D. Signed By: 06/06/251803 DD/ 00 TD/TT: Surface Lay Out Technician:ECG 12 lead (Not yet reviewed by provider) Interpretation: Performing Lab: Notes/Report: Source Facility: [place] [address] Electrocardiograph Report Signed Patient: EVELIN PATTERSON MR#: [id number] : 1955 Acct:[id number] Age/Sex: 69 / M ADM Date: Loc: ER Attending Dr: Ordering Physician: Daquan Ackerman D.O. 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 Measurements Intervals [place] Rate: 72 P: 46 ME: 184 QRS: 37 QRSD: 80 T: 48 QT: 440 QTc: 464 Interpretive Statements 1100 Sinus rhythm 8304 Long QTc interval 9150 abnormal ECG Compared to ECG 12/23/2024 09:41:37 Atrial fibrillation no longer present Electronically Signed On 06-09-2025 17:52:11 EDT by SHANEL DONOHUE M.D. Dictated By: SHANEL DONOHUE Signed By: 06/09/251751 DD/ 39 TD/TT: Surface Lay Out Technician: Reason For Referral Reason NCS bilateral arms Diagnosis 1 Paresthesia (R20.2) Referral Organization [facility] Referring Provider First Name Arline Referring Provider Last Name Nasim [facility] Referred Provider Noa Menendez Referred Provider Specialty Neurology Referral Priority Routine Diagnosis 1 Sciatica (M54.30) Referral Organization [facility] Referring Provider First Name Arline Referring Provider Last Name Nasim Referring Provider [facility] jonatan Referred Provider [facility], Physical Therap y Referred Provider Specialty Physical The rapist Referral Priority Routine Diagnosis 1 Right knee pain (M25 .561) Referral Organization [facility] Referring Provider First Name Arline Referring Provider Last Name Nasim Referring Provider [facility] Referred Provider Carlos Saul Referred Provider Specialty Orthopedic S urgery Referral Priority Routine Reason DDD and sciatica Diagnosis 1 Sciatica (M54.30) Referral Organization [facility] Referring Provider First Name Arline Referring Provider Last Name Nasim Referring Provider [facility] jonatan Referred Provider Farhad Car Referred Provider Specialty Neurosurgery Referral Priority Routine Reason colonoscopy Diagnosis 1 Anemia (D64.9) Referral Organization [facility] Referring Provider First Name Arline Referring Provider Last Name Nasim Referring Provider [facility] Referred Provider Gita Jeffery Referred Provider Specialty Gastroentero logy Referral Priority Routine Reason gen weakness, chroni c back pain Diagnosis 1 Generalized weakness (R53.1) Diagnosis 2 Back pain (M54.9) Referral Organization [facility] Referring Provider First Name Arline Referring Provider Last Name Nasim Referring Provider [facility] jonatan Referred Provider [facility], Physical Therap y [...] a week for 4 weeks; Duration: 28 days5ActiveFluticasone Propionate 50 MCG/ACT1 spray in each nostril Nasally Once a day; Duration: 30 daysActiveFerrous Sulfate 325 (65 Fe) MG1 tablet Orally Three times a Week; Duration: 30 days03/29/2025 ActiveFingerstix Lancets -as directed; Duration: 30 days12/15/2023ctive Gabapentin 100 MG1 capsule Orally Twice Daily; Duration: 30 daysActiveGlucose Blood -as directed In Vitro daily; Duration: 30 days12/15/2023ctivetraZODone HCl 50 MGTAKE 1 TABLET BY MOUTH EVERY DAY AT BEDTIME NEEDED; Duration: 90 ActiveAssure Pro Blood Glucose Meter -as directed; Duration: 360 days12/15/2023 ActiveAtorvastatin Calcium 40 MGTAKE 1 TABLET [...] tablet Orally Once a day; Duration: 30 days03/29/2025tiveAzelastine HCl 0.05 %1 drop into affected eye Ophthalmic Twice a day5ActiveClaritin 10 MG1 tablet Orally Once a day; Duration: 30 days03/22/2025tiveIsosorbide Mononitrate ER 30 MGTAKE 1 TABLET EVERY DAY; Duration: ActiveLantus SoloStar 100 UNIT/MLINJECT 45 UNITS SUBCUTANEOUSLY EVERY DAYActiveBlood Glucose Monitor System w/Devicecheck blood sugar fasting every /18/2025ActiveCarvedilol 3.125 MGOral; Duration: 90 DaysActive Lisinopril 20 MGTAKE 1 TABLET BY MOUTH EVERY DAY; Duration: 90ActiveMetoprolol Succinate ER 25 MGTAKE 1 TABLET BY MOUTH ONCE DAILY DIRECTED. STOP CARVEDILOL Oral; Duration: 90 DaysActiveLevothyroxine Sodium 200 MCGTAKE 1 TABLET EVERY DAY; Duration: 90ActiveLiothyronine Sodium 5 MCG1 tablet on an empty stomach Orally Once a day; Duration: 30 daysActiveSemi Electric Hospital Bed with Halt Rails -Use As Directed; Duration: 360 days4ActiveSertraline HCl 100 MG1 tablet Orally Once a day; Duration: 90 daysActiveNystatin 037177 UNIT/GMAPPLY TO AFFECTED AREA TWICE A DAY [...] alcohol in the p ast year? No Qwvlcr3DyixuuddgjbbwzGbalgdcv Problems Problem Type SNOMED Code ICD Code Onset Dates Problem Status W/U Status Risk Notes Problem Chronic obstructive pulmonary disease (71933654) Chronic obstructive pulmonary disease, unspecified (J44.9) ActiveconfirmedProblemHypomagnesemia (089762289)Hypomagnesemia (E83.42)Active confirmedProblemFibromyalgia (277792559)Fibromyalgia (M79.7)Activeconfirmed ProblemHyperlipidemia (75833591)Hyperlipidemia (E78.5)ActiveconfirmedProblem Hypertension (79786174)Hypertension (I10)ActiveconfirmedProblemGastroesophageal reflux disease (688221247)GERD (gastroesophageal reflux disease) (K21.9)Active confirmedProblemAtrial fibrillation (disorder) (61760465)Afib (I48.91)Active confirmedProblemAnxiety (95867862)Anxiety (F41.9)ActiveconfirmedProblemAnemia (901259103)Anemia (D64.9)ActiveconfirmedProblemSleep apnea (32738442)Sleep apnea (G47.30)ActiveconfirmedProblemInsomnia (795731964)Insomnia (G47.00)Active confirmedProblemOsteoarthritis of knee (232593222)Knee osteoarthritis (M17.9) ActiveconfirmedProblemAcute bronchitis (35348531)Acute bronchitis (J20.9)Active confirmedProblemFatty liver (535980053)Fatty liver (K76.0)ActiveconfirmedProblem Paresthesia (82440095)Paresthesia (R20.2)ActiveconfirmedProblemSciatica (47588530)Sciatica (M54.30)ActiveconfirmedProblemSeasonal allergy (017955391) Seasonal allergies (J30.2)ActiveconfirmedProblemFibromyalgia (919285522) Fibromyalgia (M79.7)ActiveconfirmedProblemIron deficiency anemia (10041949) Anemia, iron deficiency (D50.9)ActiveconfirmedProblemSevere major depression, single episode, without psychotic features (30294103)Major depressive disorder, severe (F32.2)ActiveconfirmedProblemCirrhosis of liver (59216385)Cirrhosis of liver (K74.60)ActiveconfirmedProblemSeasonal allergy (428955589)Environmental and seasonal allergies (J30.89)ActiveconfirmedProblemAtrial fibrillation (71845821)New onset a-fib (I48.91)ActiveconfirmedProblemMalnutrition of moderate degree (Simon: 60% to less than 75% of standard weight) (52733631)Moderate malnutrition (E44.0)ActiveconfirmedProblemHypercholesterolemia (90891994) Hypercholesterolemia (E78.00)ActiveconfirmedProblemType II diabetes mellitus without complication (891191276)Diabetes (E11.9)ActiveconfirmedProblemDiabetes mellitus (17506008)Diabetes mellitus (E11.9)ActiveconfirmedProblemChronic kidney disease stage 3A (disorder) (113640054)Chronic kidney disease, stage 3a (N18.31)Activeconfirmed Vital Signs Heart Rate 63 /min 02/09/2025 Nqmqhqjqric67.4 degrees Aqryxbcpiu99/28/2025Respiratory Rate16 /min06/10/2024 Blood pressure hfonwnuhi55 mm Hg05/30/20255051Acmmqcel85 %02/09/20259039Figgmx29 in 05/30/2025lood pressure eyvqlmxw483 mm Hg05/30/20258248Ojuyog441 lbs1MI 49.21 kg/m205/30/2025 Procedures Procedure Date Ordered Date Performed Result Body Sit e EAR IRRIGATION - performed 07/07/2024 N/ACARDIO EKG012/20/2024N/A Encounters Encounter Location Date Provider Diagnosis [address] [address] 07/07/2024 Arline Lazar Acute sinusitis J01. 90 ; Cerumen impaction H61.20 ; Actinic keratosis L57.0 and Ceruminosis, right H61.[address] [address] 10/08/2024 Arline Lazar Paresthesia R20.2 ; Fatigue R53.83 ; Depression F32.9 and GERD (gastroesophageal reflux disease) K21.[address] [address] 12/20/2024 Arline Lazar New onset a-fib I48. 91 ; Diabetes E11.9 ; Cirrhosis of liver K74.60 and Major depressive disorder, severe F32.[address] [address] 02/09/2025 Arline Lazar Chronic obstructive pulmonary disease, unspecified J44.9 ; Chronic kidney disease, stage 3a N18.31 ; Seasonal allergies J30.2 ; Diabetes mellitus E11.9 and Yeast dermatitis B37.[address] [address] 03/22/2025 Arline Lazar Eustachian tube dysfunction, bilateral H69.83 ; Environmental and seasonal allergies J30.89 ; Sciatica M54.30 and Fatigue R53.[address] [address] 03/28/2025 Arline Lazar Diabetes mellitus E1 1.9 ; Anemia D64.9 and Hyperlipidemia E78.[address] [address] 05/30/2025 Arline Lazar Generalized weakness R53.1 ; Back pain M54.9 ; Chronic obstructive pulmonary disease, unspecified J44.9 and Major depressive disorder, severe F32.2 [facility] (PODIATRY) [address] [place] [address] [place] [address] 10/08/2024 Desean Mensah Diabetes E11.9 [facility] (PODIATRY) [address] [place] [address] [place] [address] 06/10/2024 Estephania Cowart Diabetes mellitus E1 1.9 [facility] [address] [place] [address] 06/21/2024 Arline Lazar Hypercholesterolemia E78.00 and Encounter for long-term current use of medication Z79.899 [facility] [address] [place] [address] 06/30/2024 Arline Lazar [facility] [place] [address] 07/07/2024[facility] [place] [address]/27/2024Ptrudy [facility] [address] [place] [address]trudy [facility] [place] [address]/ Arline [facility]azar[facility] [place] [address]/Arline [facility] [place] [place] [address]/Arline [facility] [place] [address]/Arline [facility] [place] [address] 10/11/2024Arline Denton in urine R31.9[facility] [address] [place] [address]/[facility] [place] [address]/04/2025 Kwasi [facility] [place] [address]/Pamela [facility] [place] [address]/Pamela CramerDysuria R30.0[facility] [place] [place] [address]/Pamela CramerSciatica M54.30 and Low back pain at multiple sites M54.50[facility] [place] [address]/Pamela [facility] [place] [address]/07/2025Pamela [facility] [facility] [place] [address]/Pamela CramerRight knee pain M25.561 [facility] [place] [address] 12/23/2024Pamela [facility] [place] [address]/Pamela CramerRight knee pain M25.561[facility] [facility] [place] [address]/ Arline [facility]derramaMer[facility] [place] [address]/Pamela [facility] [facility] [place] [address]/11/2024Pamela [facility] [place] [address]/Pamela Nasim [facility] [facility] [place] [address] 03/28/2025Pamela CramerHypercholesterolemia E78.00[facility] [facility] [place] [address]/09/2024Parhiannaa Nasim [facility] [facility] [place] [address] 04/14/2025Pamora LazarAnemia D64.9[facility] [facility] [place] [address]/12/2024Pamora [facility]azar[facility] [facility] [place] [address]/03/2025Pamela Nasim [facility] [facility] [place] [address] 06/02/2025Parhiannaa [facility] [facility] [place] [address]/Parhiannaa NasimCirrhosis of liver K74.60[place] [address] [facility] [place] [address]/ Arline BalderramaMercy [facility] [facility] [place] [address]/Arline Lazar Assessments Encounter Date Diagnosis (ICD Code) Assessment [...] below 65 consecutively. Reviewed with patient the middle or intermediate school principal effects of Diabetes Mellitus on the body [...] below 65 consecutively. Reviewed with patient the middle or intermediate school principal effects of Diabetes Mellitus on the body [...] Hyperlipidemia (ICD-10 - E78.5)taking statin? check with dqzcoxcy24/12/2025 Sciatica (ICD-10 - M54.30) requesting second opinion [...] 2 V 05/30/2025 THYROID PANEL (T4/TSH/FREE T3) THYROID PANEL (T4/TSH/FREE T3) 5 THYROID PANEL (T4/TSH/FREE T3) 4 ECG 12 lead 06/09/2025 PSA, SCREENING 03/22/2025 PSA, SCREENING 10/08/2024 XR [...] MEDIBLUE DUAL ADV PRIMARY MEDICARE [address] [place] [address] [id number] [facility] Evelin Patterson Self - patient is the insured 4 MEDICAID [place] [address] [facility] [address] [address] [place], [place] [id number] [phone], ThomasSelf - patient is the insured Medications [...]
--- OUTSIDE RECORDS SUMMARY | 2025-06-09 17:59 | XMS_ITS | Clinical Summary ---
Author Organization [facility] Address [address] [place] [address] Care Team Providers Care Supervisor Cd Area Name Role Phone Arline Rouse CNP Primary Care Provider [phone] Allergies Active AllergyReactionsCriticalityNoted DateCommentsMetforminOther,Unknown 03/13/2022 Bloating and gas Other Reaction(s): Flatulence Bloating and gas ProchlorperazineAnxiety,ZpkfnIsp20/02/2022 flatulence Medications MedicationSigDispense QuantityRefillsLast FilledStart DateEnd DateStatus [...] 90 tablet 503/ctive Active Problems ProblemNoted DateDiagnosed GdkgOwiythbkjwgvcn86/20/2025Lumbar radiculopathy 10/28/2024ngina pectoris, iertwftd15/20/2025Shortness of inhler2510/28/2024 Abdominal mass03/30/2024brasion of elbow03/30/2024cute UTI03/30/2024KI (acute kidney injury)03/30/2024ack pain03/30/2024HF (congestive heart failure) 03/30/2024hronic kidney disease, stage III (moderate)03/30/20247117DYYKH47/20/2024 Depressive vvmaqeqv66/20/2024Elevated erythrocyte sedimentation rate03/30/2024 Endocarditis due to Vugeyqpcafucqm02/20/1118Nzrf35/20/0258Hfzhr64/20/2024 Generalized kcljxooz66/20/5087Mldkolgof09/20/2024Hypergammaglobulinemia 03/30/20240110Xbwqefsuvqyof69/20/0666Wattqscsgmrgbj27/20/9829Imyfnayrjjyi04/20/2024 Xckcdggwarr67/20/0080Exoaucpxtdrmmj62/20/2941Ducstnlnctjk55/20/2024 Yawhgcwazgdhdb15/20/2244Jiztbpxfg89/20/3543Pvmgzvplebii52/20/2024Morbid obesity due to excess /20/2024MSSA /20/2024aroxysmal A-fib 03/30/2024ash and nonspecific skin ghyjtniw66/20/2024Unable to care for self 03/30/2024AD in [place] ffrffg9109/16/2023irrhosis of liver without ascites 09/16/2023OPD (chronic obstructive pulmonary disease)09/16/2023DD (degenerative disc disease), eguvuhsc43/06/2024Type 2 diabetes mellitus with hyperglycemia, with long-term current use of nmxyayk6509/16/2023iabetic vaaslsncumbwqc48/06/5392Bzkurgwzbztf89/06/2024Essential hypertension, benign 09/16/2023Gastroesophageal reflux ksvcvgl8509/16/2023Generalized anxiety disorder 09/16/2023Hashimoto's jbdmxti9509/16/2023Hyperammonemia, type III09/16/2023 Fdblczrs46/06/2024Lumbosacral radiculopathy due to degenerative joint disease of spine09/16/2023Obstructive sleep apnea omugwyro55/06/2024rimary osteoarthritis of both knees09/16/2023 Overview (03/30/2024): Last Assessment & Plan: Increased pain and swelling for months and x-ray with OA. Start prednisone. Use percocet PRN. [facility]erto ortho for evaluation. Patient declined PT. Restless leg /06/2024Seasonal allergic rhinitis due to pollen 09/16/2023Mild nonproliferative diabetic retinopathy associated with type 2 diabetes fwnuwmex67/26/2018Epididymal pain06/26/2016 Overview (03/30/2024): +++++++++ 06/26/2016 ALLSCRIPTS SUMMARY +++++++++++ Worsening left epididymal discomfort started about November of 2015. Scrotal ultrasound was negative for epididymitis. No reproduction of discomfort with rectal exam. Patient treated empirically with Cipro in March 2016 Lower urinary tract ybqfuxyf88/16/2016 Overview (03/30/2024): +++++++++ 06/26/2016 ALLSCRIPTS SUMMARY +++++++++++ New problem as of March 2016. Uroflow postvoid residual ordered. Microscopic /16/2016 Overview (03/30/2024): +++++++++ 06/26/2016 ALLSCRIPTS SUMMARY +++++++++++ Initial evaluation August 30-. Patient has sporadic on serial follow-up. March 2016 cytology negative Encounters DateTypeDepartmentCare KvysHxfuszlqzis39/03/2025bstract [facility] [address] [place] [address] Barb Hays MD from Last 3 Months Family History Medical HistoryRelationNameCommentsNo Known ProblemsFatherNo Known Problems MotherRelationNameStatusCommentsFatherMother Social History Tobacco UseTypesPacks/DayYears UsedDateSmoking Tobacco: NeverSmokeless Tobacco: Never Tobacco Cessation:Counseling Given: Not Answered Alcohol UseStandard Drinks/WeekCommentsNever0 (1 standard drink = 0.6 oz pure alcohol)Sex and Gender InformationValueDate RecordedSex Assigned at BirthMale 11/18/2024 9:57 AM EDTLegal RbgNakz0402/06/2022 10:00 PM EDTGender IdentityMale 11/18/2024 9:57 AM EDTSexual OrientationDon't know11/18/2024 9:57 AM EDT Last Filed Vital Signs Vital SignReadingTime TakenCommentsBlood Huahkhgf964/8504 3:00 PM EDT Xlgzs446411/18/2024 3:00 PM EDTTemperature--Respiratory Juzu627211/18/2024 3:00 PM EDTOxygen Kulddwvmlv21%11/18/2024 3:00 PM EDTInhaled Oxygen Concentration-- Xggwxj347 kg (341 lb)10/28/2024 2:07 PM EAPQiewyr625.8 cm (5' 10 )10/28/2024 2:07 PM EDTBody Mass Index48.9310/28/2024 2:07 PM EDT Plan of Treatment Health MaintenanceDue DateLast DoneCommentsCT Ahzpsxootzej33/19/1958Colonoscopy 1955Colorectal Cancer Ywdnxvpuy99/19/1958Diabetes: Hemoglobin A1C 1955FIT-DNA1957FIT1957FOBT1955Medicare Annual Wellness (AWV)11/27/19570791Sntyfbexgyuyl93/19/1958Diabetes: Retinopathy Orvuvcjxz61/19/1968 Depression Mlyxvvbie93/19/1970Diabetes: Urine Protein Tafvzewij90/19/1977Adult Bnhvyxa0111/28/1979Zoster Vaccines (1 of 2)11/28/2007Fall Risk Vmfydwiem23/19/2023 COVID-19 Vaccine ( - 2024- season)2025Influenza Vaccine (#1)2025 05/12/2024, 05/06/2023, 05/11/2021, Additional history existsPneumococcal Vaccine: 50+ KsbcmYeccfcmon42/28/2023HIB VaccinesAged OutNo longer eligible based on patient's [...] MemberRelationshipSpecialtyStart DateEnd Date Arline Rouse CNP [address] [facility], [facility] [[email or web address] [place], [place] [id number] [facility] - [facility]/25/24
--- OUTSIDE RECORDS SUMMARY | 2025-06-09 17:59 | XMS_ITS | CCD ---
Author Organization [facility] Inform ion Partnership [facility] Care Team Providers Care Veterinary Virus Serum Inspector Name Role Phone JEFF CARLOS Saul Primary Care Physician MD Ayden Freeman Primary Care Provider [phone] Al MD Mary Jane Campbell Admit Provider MD Syed Osunaiz Other Provider MD Xin Phan Attending Provider [phone] DO Jair Gbariel Emergency Provider MD Luke Moran Admit Provider MD Lupe Hernandez Attending Provider [phone] DO Ramesh Byrd Emergency Provider PROVIDER, UNKNOWN [...] DR CAROL Huffman Consulting Unavailable LYDIA, DR YADEN Haney Attending Unavailable LYDIA, DR AYDEN Haney [...] Admitting Unavailable Margot Singh MD Attending Provider [phone] Cady COUNTER ROLLER-C, Alrine Almazan Primary Care Provider [phone] Crockett PA-CLottie Attending Provider Unallocated , Saidas Provider Primary Care [facility] Arline Lazar MD Unavailable Ezio Amado MD Primary Care Provider [phone] Cady COUNTER ROLLER-C, Arline Almazan Primary Care Provider [phone] Margot Singh MD Attending Provider [phone] Cady COUNTER ROLLER-C, Arline Almazan Primary Care Provider [phone] Crockett PA-CLottie Attending Provider Cady COUNTER ROLLER-C, Arline Almazan Attending Provider [phone] ARLINE LAZAR Primary Care Physician [phone] Nancy Stanton Attending Unavailable CADY, ARLINE Winn Referring Unavailable NILL, Javid Huffman Attending Unavailable RUSHER, CAROL Haney Attending Unavailable RUSHER, CAROL Haney Attending Unavailable ZAHLER, SYLVIA Simmons Attending Unavailable JIMENA SY Referring Unavailable RUSHER, CAROL Haney Attending Unavailable ZAHLER, SYLVIA Simmons Attending Unavailable ZAHLXAVIER, SYLVIA Simmons Attending Unavailable Cady COUNTER ROLLER-C, Arline Arriagae Primary Care Provider Matt DAVID, aCrmine Hughes Emergency Provider Juan A Garza MD Admit Provider Greg JOHNSON, Juan A Attending Provider ELTAHAWY, EHAB Referring Unavailable ELTAHAWY, EHAB Attending Unavailable ELTAHAWY, EHAB Admitting Unavailable ELTAHAWY, EHAB Attending Unavailable Cady COUNTER ROLLER-C, Arline Almazan Primary Care Provider Juan A Garza MD Other Provider Leah Cook MD Attending Provider Leah Cook MD Other Provider Silvano RN, Ysabel Other Provider Unavailable Breana RN, Garima Other Provider Unavailable Josue RN, Maria C Other Provider Unavailable Nain RN, Yulissa Other Provider Unavailable Wood RN, Geeta Other Provider Unavailable Mariano RN, Bouchra Other Provider Unavailable Nikolai Zelaya MD Other Provider Lorin Yang DO Other Provider Wolf Thao MD Other Provider [phone] Piero Sethi DO Other Provider Luke Moran MD Other Provider Nisa Starkey MD Other Provider [phone] Javid Palm DO Other Provider Unavailab luisa Manuel MD, Miguel Angel Other Provider Unavailable Yesenia Hanks APRN Other Provider Skyler Woods MD Other Provider Lupe Hernandez MD Other Provider Unavailable Charito Landry MD Other Provider Javid Curtis DO Other Provider Stewart Sanchez MD Other Provider Renato Looney MD Other Provider Eduar COUNTER ROLLER-C, Trish Carlos Other Provider Angie Cannon APRN [...] Provider Maximiliano JOHNSON, Shade Haney Other Provider [phone] Diane Thapa RN Other Provider Unavailable Thanh Mazariegos MD Attending Provider [phone] Arline Lazar Attending Unavailable Cady, Arline Norah Admitting Unavailable Crockett, Lottie R Attending Unavailabl e Crockett, Lottie R Admitting Unavailabl e Cady, Arline [...] of OnsetReaction(s) Facility (20 sources)metFORMIN; Translations: [metformin]Drug Slmbvln36-30-2015Brfouzu, Gastrointestinal irritation (disorder)[facility] (20 sources)Prochlorperazine; Translations: [prochlorperazine]Drug Allergy 69-04-5713Nysiywx, Other, Anxiety (finding)[facility] (3 sources)Prochlorperazine; Translations: [Compazine]Drug AllergyThe [facility] (15 sources)pioglitazoneDrug Adbdqdi33-41-4173QWVJ [facility] Medications Current Medications MedicationDrug Class(es)DatesSig (Normalized)Sig (Original)Albuterol (13 sources)beta2-Adrenergic AgonistStart: 33-82-8233lhpn 90 ug by inhalation every four hoursAlbuterol (Eqv-ProAir HFA) 90 mcg, Inhalation, q4hr Shortness of breath or wheezing, Refill(s) 0 Start Date: 04/15/25 Status: Ordered Repeat number: 1Start: 39-85-4249pnpo 1 puff(s) by inhalation every four hours as neededapixaban 5 mg oral tablet (20 sources)Factor Xa InhibitorStart: 95-87-5679wrgp 2.5 mg by mouth twice daily Eliquis 5 mg oral tablet 2.5 mg = 0.5 tab(s), Oral, BID, Refills(s) 0 Start Date: 04/15/25 Status: Ordered Repeat number: 1Start: 94-78-5956qinl 1 tablet by mouth twice dailyApixaban (Eliquis) 5 mg tablet Active 5 MG PO Twice daily December 17, 2024 12:00am Complies with drug therapyARIPiprazole 2 mg oral tablet (1 source)Atypical AntipsychoticStart: 56-26-2423cpta 1 tablet by mouth once dailyaspirin 81 mg chewable tablet (7 sources)Platelet Aggregation Inhibitor, Nonsteroidal Anti-inflammatory Drug Start: 84-62-1780addivak 81 mg Chew Tab 81 mg = 1 tab(s), Chewed, Daily, Refills(s) 0 Start Date: 04/15/25 Status: Ordered Repeat number: 1Start: 12-17-2024 End: 53-33-4453vlaf 1 tablet by mouth once daily in the morningAspirin 81 mg tablet,chewable Discontinued 81 MG PO Every morning December 17, 2024 12:00am February 25, 2025 11:40amatorvastatin 40 mg oral tablet (20 sources)HMG-CoA Reductase InhibitorStart: 30-58-5278yart 1 tablet by mouth once daily at bedtimeazelastine hydrochloride 0.5 mg/ml ophthalmic solution (1 source)Histamine-1 Receptor AntagonistStart: 83-73-5350lbyp 1 drop(s) into the eye(s) twice dailyazelastine 0.05% Opth Allyson 1 drop(s), Eye-Both, BID Allergy symptoms, Refill(s) 0 Start Date: 04/15/25Status: Ordered Repeat number: 1 carvedilol 3.125 mg oral tablet (14 sources)alpha-Adrenergic Eva, beta-Adrenergic Blockercarvedilol (Coreg) 3.125 MG tablet Oral for 90 Days Activecholecalciferol 0.125 mg oral capsule (1 source)Vitamin DStart: 05-61-9289widm 1 capsule by mouth once dailydiclofenac sodium 75 mg delayed release oral tablet (7 sources)Nonsteroidal Anti-inflammatory DrugStart: 10-19-4531qacf 1 tablet by mouth twice dailydiclofenac sodium 75 mg Oral EC Tab 75 mg = 1 tab(s), Oral, BID, Refills(s) 0 Start Date: 04/15/25 Status: Ordered Repeat number: 1Start: 75-75-3133wfti 2 tablets by mouth once daily at bedtimeDiclofenac Sodium 75 mg tablet,delayed release (DR/EC) Active 150 MG PO Daily at bedtime December 17, 2024 12:00am Complies with drug therapydiphenhydrAMINE hydrochloride 25 mg oral tablet (20 sources)Histamine-1 Receptor AntagonistStart: 56-68-1052rslm 1 tablet by mouth four times dailyBenadryl 25 mg Tab = 1 tab(s), Oral, QID, Refills(s) 0 Start Date: 04/15/25 Status: Ordered Repeat number: 1Start: 05-40-5778zyzc 1-2 capsules by mouth four times dailyBanophen 25 MG capsule TAKE 1 - 2 CAPSULES BY MOUTH 4 TIMES A DAY FOR ITCHING 12/21/2024 ActiveStart: 87-26-4333Ahsht: 11-24-3966nvgczbkrnzdb 40 mg delayed release oral capsule (20 sources)Proton Pump InhibitorStart: 44-54-2379adgm 1 capsule by mouth once dailyStart: 03-14-2022 End: 35-03-0874kbve 1 capsule by mouth once dailyEsomeprazole Magnesium 40 mg capsule,delayed release(DR/EC) Discontinued 40 MG PO Daily March 12:00am April 02, 2022 6:07pmferrous sulfate 324 mg delayed release oral tablet (1 source)Start: 32-37-3705effe 1 tablet by mouth twice dailyfluticasone propionate 0.05 mg/actuat metered dose nasal spray (20 sources)CorticosteroidStart: 25-18-5471krzclydomht (Flonase) 50 MCG/ACT nasal spray Indications: Seasonal allergic rhinitis due to pollen USE 2 SPRAYS IN EACH NOSTRIL IN MORNING.SHAKE GENTLY.BEFORE FIRST USE,PRIME PUMP.AFTER USE,CLEAN TIPAND REPLACE CAP. 16 mL 1 12/27/2024 ActiveStart: 12-17-2024 gabapentin 100 mg oral capsule (20 sources)Anti-epileptic AgentStart: 33-89-5609amdp 1 capsule by mouth twice dailyStart: 87-04-7453fifx 2 capsules by mouth once daily at bedtimeGabapentin 100 mg capsule Active 200 MG PO Daily at bedtime December 17, 2024 12:00am Complies with drug therapyStart: 21-70-3063tkhd 1 capsule by mouth in the morning gabapentin (Neurontin) 100 MG capsule Indications: DDD (degenerative disc disease), cervical Take 1capsule (100 mg) by mouth in the morning and 1 capsule (100 mg) before bedtime. 60 capsule 2 12/08/2023 ActiveStart: 04-04-2022 End: 23-50-1161ooxw 2 capsules by mouth three times dailyGabapentin 100 mg capsule Discontinued 200 MG PO Three times daily 0 30 April 04, 2022 1:12pm December 17, 2024 2:27pmStart: 92-46-6035kgfy 200 mg by mouth three times daily Gabapentin Active 200 MG PO Three times daily 0 April 04, 2022 1:12pm Start: 63-43-0704yeyn 200 mg by mouth three times dailyGabapentin Active 200 MG PO Three times daily 0 April 04, 2022 1:12pmStart: 22-29-2947tzgf 200 mg by mouth three times dailyGabapentin Active 200 MG PO Three times daily 0 April 04, 2022 1:12pmStart: 03-14-2022 End: 86-81-4523culq 1 capsule by mouth twice dailyGabapentin 100 mg capsule Discontinued 100 MG PO Twice daily March 14, 2022 12:00am April 09, 2022 12:27pmStart: 07-20-2020 End: 46-76-0730ibss 1 capsule by mouth three times dailyGabapentin 300 mg Capsule Discontinued 300 MG PO Three times daily 9 August 10, 2020 4:48pm March 14, 2022 2:41amInsulin Aspart U-100 (Novolog Flexpen U-100 Insulin) 100 unit/mL (3 mL) Insulin Pen (8 sources)Start: 74-21-3158liodod 1 dose by subcutaneous injection at bedtime Insulin Aspart U-100 (Novolog Flexpen U-100 Insulin) 100 unit/mL (3 mL) Insulin Pen Active 1 sliding scale dose SUBCUT Before meals and at bedtime December 17, 2024 12:00amStart: 04-05-2022 End: 61-08-7944Ydpkift Aspart U-100 (Novolog Flexpen U-100 Insulin) 100 unit/mL (3 mL) Insulin Pen Discontinued 0 UNITS SUBCUT Before meals and at bedtime April 05, 2022 12:00am December 17, 2024 2:27pmStart: 09-73-1394Fluiguh Aspart U- 100 (Novolog Flexpen U-100 Insulin) 100 unit/mL (3 mL) Insulin Pen Active 0 UNITS SUBCUT Before meals and at bedtime 0 April 05, 2022 12:00am3 ml insulin glargine 100 unt/ml pen injector (20 sources)Insulin AnalogStart: 43-20-9194Vjtzs: 12-19-2023 End: 91-20-5081Sdaqtzw Glargine (Lantus Solostar U-100 Insulin) 100 unit/mL (3 mL) insulin pen Discontinued 40 UNIT SUBCUT Daily at bedtime December 17, 2024 12:00am May 27, 2025 1:38pm24 hr isosorbide mononitrate 30 mg extended release oral tablet (20 sources)Nitrate VasodilatorStart: 03-14-2022 End: 06-09-3856ayxb 1 tablet by mouth once daily at bedtime, then take 1 tablet by mouth every twenty-four hoursLantus Solostar Pen (1 source)Start: 89-82-2162ryyksr 45 [IU] by subcutaneous injection once daily Lantus Solostar Pen 45 unit(s), SubCutaneous, Daily, Refill(s) 0 Start Date: 04/15/25 Status: OrderedRepeat number: 1levothyroxine sodium 0.2 mg oral tablet (20 sources)l-ThyroxineStart: 63-48-5125dosn 1 tablet by mouth once daily levothyroxine 200 mcg (0.2 mg) Tab 200 mcg = 1 tab(s), Oral, Daily, Refills(s) 0 Start Date: 04/15/25Status: Ordered Repeat number: 1Start: 76-34-2643vopl 1 tablet by mouth once dailyStart: 04-09-2022 End: 26-36-4785Gicsqiybibcof (Synthroid) 200 mcg Tablet Discontinued 250 MCG PO Daily April 09, 2022 12:00am December 17, 2024 2:27pmStart: 04-09-2022 Levothyroxine (Synthroid) 200 mcg Tablet Active 250 MCG PO Daily April 09, 2022 12:00amStart: 70-08-0686Ulmunokqqoith (Synthroid) 200 mcg Tablet Active 250 MCG PO Daily April 09, 2022 12:00amStart: 07-20-2020 End: 94-18-6580gvrw 1 tablet by mouth once dailyLevothyroxine 200 mcg tablet Discontinued 200 MCG PO Daily at 629July 20, 2020 1:00am April 09, 2022 12:27pmStart: 07-20-2020 End: 50-87-9755zccg 1 tablet by mouth once dailyLevothyroxine (Synthroid) 25 mcg Tablet Discontinued 25 MCG PO Daily July 20, 2020 1:00am July 20, 2020 6:14pmliothyronine sodium 0.005 mg oral tablet (16 sources)l-TriiodothyronineStart: 12-15-7929plsn 1 tablet by mouth once daily Start: 21-56-1330oitp 1 tablet by mouth once dailyCytomel 5 mcg Tab 5 mcg = 1 tab(s), Oral, Daily, Refills(s) 0 Start Date: 04/15/25 Status: Ordered Repeat number: 1Start: 89-76-9727bles 1 tablet by mouth once dailyliothyronine (Cytomel) 5 MCG tablet TAKE 1 TABLET BY MOUTH EVERY DAY ON EMPTY STOMACH FOR 30 DAYS 01/13/2025 Activelisinopril 20 mg oral tablet (20 sources)Angiotensin Converting Enzyme InhibitorStart: 23-73-3545zkbe 1 tablet by mouth once dailyStart: 03-14-2022 End: 68-37-8898bkcm 1 tablet by mouth once dailyLisinopril 40 mg tablet Discontinued 40 MG PO Daily March 14, 2022 12:00am December 17, 2024 2:18pmStart: 07-20-2020 End: 04-08-9620Ccagvnoono 2.5 mg Tablet Discontinued 20 MG PO Twice daily July 20, 2020 1:00am August 07, 2020 3:01pmStart: 07-20-2020 End: 14-57-0109wrtx 20 mg by mouth twice dailyLisinopril Discontinued 20 MG PO Twice daily July 20, 2020 1:00am August 07, 2020 3:01pmloratadine 10 mg oral tablet (2 sources)Start: 02-72-5418gogj 1 tablet by mouth once dailyStart: 04-15-2025 take 1 tablet by mouth once dailyloratadine 10 mg Tab 10 mg = 1 tab(s), Oral, Daily, Refills(s) 0 Start Date: 04/15/25 Status: OrderedRepeat number: 1magnesium oxide 400 mg oral tablet (1 source)Start: 82-96-9386gquo 1 tablet by mouth once daily24 hr metoprolol succinate 25 mg extended release oral tablet (7 sources)beta-Adrenergic BlockerStart: 38-85-5036zdsn 1 tablet by mouth once daily in the morningnystatin 111126 unt/ml topical cream (20 sources)Polyene AntifungalStart: 12-64-1085abrzgwpr (Mycostatin) cream Indications: Skin candidiasis Apply topically 2 (two) times a day 30 g 3 12/09/2023 ActiveStart: 03-14-2022 End: 84-20-2453Lqylwgup 100,000 unit/mL suspension Discontinued March 14, 2022 12:00am March 14, 2022 2:54amrOPINIRole 0.5 mg oral tablet (20 sources)Nonergot Dopamine AgonistStart: 51-04-1677ormn 1 tablet by mouth once daily at bedtimeStart: 03-14-2022 End: 66-06-0659osgq 0.5 mg by mouth once daily at bedtimeRopinirole 5 mg Tablet Discontinued 0.5 MG PO Daily at bedtime March 14, 2022 12:00am December 17, 2024 2:15pm administer 1-3 hours before bedtimeStart: 57-93-8785oplx 0.5 mg by mouth once daily at bedtimeRopinirole Active 0.5 MG PO Daily at bedtime March 14, 2022 12:00am administer 1-3 hours before bedtimesertraline 100 mg oral tablet (20 sources)Serotonin Reuptake InhibitorStart: 40-46-7289elmv 1 tablet by mouth once dailytraZODone hydrochloride 50 mg oral tablet (14 sources)Serotonin Reuptake InhibitorStart: 02-69-8808ipbm 1 tablet by mouth once daily at bedtime as neededStart: 46-56-6430efqk 1 tablet by mouth once daily at bedtimetraZODONE 50 mg Tab 50 mg = 1 tab(s), Oral, Once a day (at bedtime), Refills(s) 0 Start Date: 04/15/25 Status: Ordered Repeat number: 1Start: 03-14-2022 End: 11-84-6511kdue 1 tablet by mouth once daily at bedtimeTrazodone 50 mg Tablet Discontinued 50 MG PO Daily at bedtime March 14, 2022 12:00am March 6:08pmvitamin b12 1 mg oral tablet (1 source)Vitamin Q71Lwcbg: 45-48-0397vmoh 1 tablet by mouth once daily in the morning Completed/Discontinued Medications MedicationDrug Class(es)DatesSig (Normalized)Sig (Original)acetaminophen 500 mg oral tablet (12 sources)Start: 04-04-2022 End: 43-03-0805vzqa 2 tablets by mouth every six hours as needed for pain Acetaminophen 500 mg Tablet Discontinued 1000 MG PO Q6H as needed for Fever Or Pain 0 0 April 04, 2022 12:00am May 16, 2025 2:28pmStart: 53-43-2016uohu 1000 mg by mouth every six hoursAcetaminophen Active 1000 MG PO Q6H 0 April 04, 2022 12:00amStart: 76-72-4535tjyb 1000 mg by mouth every six hours Acetaminophen Active 1000 MG PO Q6H 0 April 04, 2022 12:00amStart: 04-04-2022 take 1000 mg by mouth every six hoursAcetaminophen Active 1000 MG PO Q6H 0 April 04, 2022 12:00amacetaminophen 300 mg / codeine phosphate 30 mg oral tablet (12 sources)Opioid AgonistStart: 04-02-2022 End: 87-30-6353xyhl 1 tablet by mouth every six hours as needed for pain Acetaminophen-Codeine 300-30 mg tablet Discontinued 1 TAB PO Q6H as needed for Pain April 02, 2022 12:00am April 09, 2022 12:27pmacetaminophen 325 mg / HYDROcodone bitartrate 5 mg oral tablet (12 sources)Opioid AgonistStart: 07-27-2020 End: 23-06-4315cskn 1 tablet by mouth four times daily as needed for pain Hydrocodone-Acetaminophen ([place]) 5-325 mg Tablet Discontinued 1 TAB PO Four times daily as needed for Pain July 27, 2020 1:00am August 10, 2020 4:49pmbaclofen 10 mg oral tablet (12 sources)gamma-Aminobutyric Acid-ergic AgonistStart: 07-26-2020 End: 70-22-1247aehi 1 tablet by mouth three times daily as needed for pain Baclofen 10 mg tablet Discontinued 10 MG PO Three times daily as needed for Pain July 26, 2020 1:00am August 10, 2020 3:06pmBevacizumab solution prefilled syringe 1.25 mg (6 sources)Start: 05-03-2025 End: 06-72-8626Ljdlxzslfkn solution prefilled syringe 1.25 mgStart: 05-03-2025 End: 51.25 mg, Intravitreal, Once PRN Procedure, Starting on Fri05/03/25 at 1521, For 1 doseStart: 05-03-2025 End: 92-01-5042Qxukfpgnxoj solution prefilled syringe 1.25 mgStart: 05-03-2025 End: 51.25 mg, Intravitreal, Once PRN Procedure, Starting on Fri05/03/25 at 1517, For 1 doseStart: 03-23-2025 End: 15-47-6130Cnmrrdfdlnz solution prefilled syringe 1.25 mgStart: 03-23-2025 End: 51.25 mg, Intravitreal, Once PRN Procedure, Starting on Fri03/23/25 at 1419, For 1 doseceFAZolin 200 mg/ml injectable solution (12 sources)Cephalosporin AntibacterialStart: 08-01-2020 End: 74-53-8120ngqo 10 g intravenously every eight hoursCefazolin 10 gram Recon Soln Discontinued 2 GM IV Q8H 105 35 0 August 01, 2020 1:00am August 10, 2020 3:06pmStart: 08-01-2020 End: 27-19-4225zkhj 2 g intravenously every eight hoursCefazolin Discontinued 2 GM IV Q8H 105 35 August 01, 2020 1:00am August 10, 2020 3:06pmcelecoxib 200 mg oral capsule (20 sources)Nonsteroidal Anti-inflammatory DrugStart: 08-07-2020 End: 83-34-6272qdkh 1 capsule by mouth at bedtimeCelecoxib (Celebrex) 200 mg capsule Discontinued 200 MG PO Bedtime August 07, 2020 1:00am March 16, 2022 9:32amStart: 07-20-2020 End: 35-78-4781emhs 1 capsule by mouth twice daily as needed for anxiety Celecoxib 200 mg capsule Discontinued 200 MG PO Twice daily as needed for Anxiety July 20, 2020 1:00am August 02, 2020 2:52pmclotrimazole 10 mg/ml topical cream (18 sources)Azole AntifungalStart: 12-17-2024 End: 87-79-5926Htqbremegahv 1 % cream Discontinued 1 APPLIC TOPICAL Twice daily as needed for rash December 17, 2024 12:00am February 25, 2025 11:40amStart: 03-14-2022 End: 56-46-4653Trvzqksrfsls 1 % cream Discontinued 1 APPLIC TOPICAL Daily as needed for Dry Skin March 14, 2022 12:00am April 09, 2022 12:27pmcolchicine 0.6 mg oral capsule (12 sources)Start: 07-20-2020 End: 09-07-5091flxv 1 capsule by mouth twice dailyColchicine 0.6 mg Capsule Discontinued 0.6 MG PO Twice daily July 20, 2020 1:00am July 20, 2020 6:15pmdexamethasone 6 mg oral tablet (12 sources)CorticosteroidStart: 03-16-2022 End: 82-87-8996bklm 1 tablet by mouth once dailyDexamethasone 6 mg Tablet Discontinued 6 MG PO Daily 6 6 0 March 16, 2022 12:00am April 02, 2022 6:07pmhydroCHLOROthiazide 25 mg oral tablet (20 sources)Thiazide DiureticStart: 03-14-2022 End: 17-03-9874Qdewgwxlonbonzmsiss Discontinued MG TABLET March 14, 2022 12:00am March 14, 2022 2:54amStart: 07-27-2020 End: 30-51-7505yxsn 1 tablet by mouth once dailyHydrochlorothiazide 25 mg Tablet Discontinued 25 MG PO Daily March 14, 2022 12:00am March 14, 2022 2:54am hydrOXYzine hydrochloride 25 mg oral tablet (12 sources)AntihistamineStart: 03-14-2022 End: 42-19-2706pdli 1 tablet by mouth once daily at bedtime as needed for anxietyHydroxyzine Hcl 25 mg tablet Discontinued 25 MG PO Daily at bedtime as needed for Anxiety March 14, 2022 12:00am April 09, 2022 12:27pm3 ml insulin aspart, human 100 unt/ml pen injector (10 sources)Insulin AnalogStart: 04-05-2022 End: 10-47-8866sngfnp 1 dose by subcutaneous injection at bedtimeInsulin Aspart U-100 (Novolog Flexpen U-100 Insulin) 100 unit/mL (3 mL) Insulin Pen Discontinued 1 sliding scale dose SUBCUT Before meals and at bedtime December 17, 2024 12:00am February 25, 2025 11:41am3 ml insulin detemir 100 unt/ml pen injector (12 sources)Insulin AnalogStart: 03-16-2022 End: 11-76-3179Tluxtgm Detemir U-100 (Levemir Flextouch U100 Insulin) 100 unit/mL (3 mL) Insulin Pen Discontinued 40 UNIT SUBCUT Daily with breakfast March 16, 2022 12:00am December 17, 2024 2:13pm3 ml insulin lispro 100 unt/ml pen injector (12 sources)Insulin AnalogStart: 03-16-2022 End: 39-13-6955Lgfwywa Lispro (Humalog Kwikpen Insulin) 100 unit/mL Insulin [...] source for Protocol details. Start: 03-16-2022 End: 70-96-0279zsyeff 1 dose by subcutaneous injection at bedtimeInsulin Lispro (Humalog Kwikpen Insulin) 100 unit/mL Insulin Pen Discontinued 1 sliding scale dose SUBCUT Before meals and at bedtime March 16, 2022 12:00am April 09, 2022 12:27pm Sliding Scale ACHS Please contact the information source for Protocol details.3 ml liraglutide 6 mg/ml pen injector (12 sources)GLP-1 Receptor AgonistStart: 04-04-2022 End: 49-97-8313nxklcq 0.6 mg by subcutaneous injection once daily, [...] week then 1.8 mg sq daily thereafterStart: 40-40-2580nrnqqm 0.6 mg by subcutaneous injection once daily, [...] week then 1.8 mg sq daily thereafterStart: 07-71-8431thlzgw 0.6 mg by subcutaneous injection once daily, [...] Proliferator Receptor gamma Agonist, ThiazolidinedioneStart: 03-14-2022 End: 03-62-5347nbjq 1 tablet by mouth once dailyPioglitazone 30 mg tablet Discontinued 30 MG PO Daily March 14, 2022 12:00am April 09, 2022 12:27pm predniSONE 10 mg oral tablet (12 sources)Start: 03-14-2022 End: 33-17-2480hjka 2 tablets by mouth once dailyPrednisone 10 mg tablet Discontinued 20 MG PO Daily March 14, 2022 12:00am March 16, 2022 9:32am Start: 03-14-2022 End: 51-48-9361lvdx 20 mg by mouth once dailyPrednisone Discontinued 20 MG PO Daily March 14, 2022 12:00am March 16, 2022 9:32amtriamcinolone acetonide 1 mg/ml topical lotion (12 sources)CorticosteroidStart: 08-02-2020 End: 97-70-1856Mbaepzwfpkcyk Acetonide 0.1 % Lotion Discontinued 1 APPLIC TOPICAL Twice daily 0 0 August 02, 2020 1:00am April 09, 2022 12:27pmzinc sulfate 220 mg oral capsule (12 sources)Start: 03-16-2022 End: 89-68-4527Iwti Sulfate (Orazinc) 50 mg zinc (220 mg) Capsule Discontinued 220 MG PO Daily 31 7 0 March 16, 2022 12:00am April 02, 2022 6:08pm Problems Active Problems Problem ClassificationProblemDateDocumented DateEpisodic/ChronicAcute and unspecified renal failure (16 sources)Injury of kidney; Translations: [Acute kidney failure, unspecified] 80-44-7147JtyzeaecTmcexro disorders (16 sources)Generalized anxiety disorder; Translations: [Generalized anxiety disorder]Onset: 320055-90-3523GluxnhaMocpmgfaq infection; unspecified site (12 sources)Bacteremia due to Staphylococcus aureus; Translations: [Bacteremia] 05-88-7269ZhugwrstSpagbah dysrhythmias (17 sources)Paroxysmal atrial fibrillation; Translations: [Paroxysmal atrial fibrillation]Onset: 314901-52-1505EewkbrdYsalvtku (9 sources)Bilateral age-related nuclear cataracts; Translations: [Age-related nuclear cataract, bilateral]Onset: 955545-87-9625EwoewvzHkzayte kidney disease (19 sources)Chronic kidney disease stage 3; Translations: [Stage 3 chronic kidney disease]Onset: 804827-47-5251EittoxsPjcmgui kidney disease (2 sources)Chronic kidney disease; Translations: [CHRONIC KIDNEY DISEASE STAGE 3A]Onset: 95-31-1404Iloujda obstructive pulmonary disease and bronchiectasis (16 sources)Chronic obstructive lung disease; Translations: [Chronic obstructive pulmonary disease, unspecified]Onset: 694375-25-9299JjlykaxEbxpuvuhwr heart failure; nonhypertensive (19 sources)Congestive heart failure; Translations: [Heart failure, unspecified] Onset: 404169-24-8788IfwawhbOpqextmp atherosclerosis and other heart disease (20 sources)Atherosclerotic heart disease of [place] coronary artery without angina pectoris; Translations: [Coronary arteriosclerosis]Onset: 05-20-2022 74-33-8411VtlbgvsShlwhzgeaw and other anemia (1 source)Anemia; Translations: [Anemia, unspecified]Onset: 50-10-3642Thyfjnnw Diabetes mellitus with complications (20 sources)Type 2 diabetes mellitus with hyperglycemia; Translations: [Type 2 diabetes mellitus with diabetic chronic kidney disease]Onset: 93-87-3227Bdyilei Diabetes mellitus without complication (20 sources)Diabetes mellitus; Translations: [Type 2 diabetes mellitus without complications]Onset: 475042-86-7043LjmxkilHirgbtai mellitus without complication (16 sources)Hyperglycemia; Translations: [Hyperglycemia, unspecified]03-14-2022 EpisodicDiseases of white blood cells (12 sources)Leukocytosis; Translations: [Elevated white blood cell count, unspecified]14-81-8013QnhukrnAsdxbappn of lipid metabolism (19 sources)Hyperlipidemia, unspecified; Translations: [Dyslipidemia]Onset: 383272-16-2954GjbxbfpH Codes: Fall (19 sources)Fall; Translations: [Unspecified fall, initial encounter]Onset: 408638-07-8923OdzjhtryGokzbykqrc disorders (17 sources)Gastro-esophageal reflux disease without esophagitis; Translations: [Gastroesophageal reflux disease]Onset: 856078-40-6382AzaxomxHxsovpqxt hypertension (20 sources)Hypertensive disorder; Translations: [Essential (primary) hypertension]Onset: 163926-52-7577HafmbfbRaywj of unknown origin (12 sources)Fever; Translations: [Fever, unspecified]82-97-1003DcllknwaFuwlx and electrolyte disorders (20 sources)Hyponatremia; Translations: [Hypo-osmolality and hyponatremia] 11-80-0119VfpkybpnWpqpgjgfyuorn symptoms and ill-defined conditions (11 sources)Blood in urine; Translations: [Hematuria, unspecified]04-12-2022 EpisodicHypertension with complications and secondary hypertension (3 sources)Hypertensive chronic kidney disease with stage 1 through stage 4 chronic kidney disease, or unspecified chronic kidney disease; Translations: [Hypertensive heart disease with heart failure]Onset: 87-07-4916BzoavaoJiaubyku disorders (17 sources)Hypergammaglobulinemia; 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, unspecified]Onset: 728898-81-1361YvybnyfBewfizf and fatigue (20 sources)Asthenia; Translations: [Weakness]Onset: EpisodicMood disorders (5 sources)Major depressive disorder, single episode, unspecified; Translations: [Depressive disorder]Onset: 438259-70-1998JwdhxtoMieshzd (2 sources)Onychomycosis due to dermatophyte ; Translations: [Tinea unguium] 14-92-7816JwvdskhnUbghsbastdfgou (16 sources)Unilateral primary osteoarthritis, left hip; Translations: [Primary gonarthrosis, bilateral]Onset: 022023-63-1172NrqpjwwByiak aftercare (1 source)Other remote computer terminal operator (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; Translations: [OTH WRITING TUTOR CURRENT DRUG THERAPY]Onset: 55-46-7526CqaueqieTjmxc aftercare (6 sources)Long-term current use of insulin; Translations: [remote computer terminal operator (current) use of insulin]12-45-1081MbnycilxKepsu circulatory disease (2 sources)Other specified disorders of arteries and arterioles; Translations: [Other specified disorders of arteries and arterioles]Onset: 78-58-1352Rghhwrq Other circulatory disease (1 source)Low blood pressure; Translations: [Hypotension, unspecified]Episodic Other connective tissue disease (1 source)Bhfkaruyauwd32-13-9468PjqkrcrdUuyia gastrointestinal disorders (12 sources)Abdominal mass; Translations: [Intra-abdominal and pelvic swelling, mass and lump, unspecified site]67-97-0754BhuswhexFjeit hematologic conditions (12 sources)ESR raised; Translations: [Elevated erythrocyte sedimentation rate] 54-62-7902AbpaprdmFuccx hereditary and degenerative nervous system conditions (16 sources)Restless legs; Translations: [Restless legs syndrome]Onset: 924190-31-5773TkslkvnVoaam liver diseases (1 source)Unspecified cirrhosis of liver; Translations: [UNSPECIFIED CIRRHOSIS OF LIVER]Onset: 45-27-3672McsjjbpNkxvf liver diseases (1 source)Fatty (change of) liver, not elsewhere classified; Translations: [FATTY CHANGE LIVER NEC]Onset: 09-76-7827PjwncvuYnozb liver diseases (17 sources)Cirrhosis of liver; Translations: [Unspecified cirrhosis of liver] Onset: 002840-47-7369GwwzoirBzadn liver diseases (1 source)Steatosis of -82-9234GtnrjevKgckq lower respiratory disease (12 sources)Hypoxemia; Translations: [Hypoxemia]22-25-8941GwmsisnhSzncq lower respiratory disease (4 sources)Hypoxemia; Translations: [Hypoxemia]40-15-5710WllcjegsXppap nutritional; endocrine; and metabolic disorders (12 sources)Morbid obesity; Translations: [Morbid (severe) obesity due to excess calories]53-12-6618XlsbaegUtpsv nutritional; endocrine; and metabolic disorders (12 sources)Hypomagnesemia; Translations: [Hypomagnesemia]09-46-2089UazatarSwaws nutritional; endocrine; and metabolic disorders (7 sources)Morbid (severe) obesity due to excess calories; Translations: [Morbid obesity]Onset: 837997-72-7569YmwpadoWfvae nutritional; endocrine; and metabolic disorders (3 sources)Body mass index (BMI) 45.0-49.9, adult; Translations: [BODY MASS INDEX BMI 45.0-49.9 ADULT]Onset: 72-65-1656CbdprdvTlujh nutritional; endocrine; and metabolic disorders (1 source)Body mass index (BMI) 50.0-59.9, adult; Translations: [BODY MASS INDEX BMI 50.0-59.9 ADULT]Onset: 86-68-4598QtqivfuJbexm nutritional; endocrine; and metabolic disorders (15 sources)Hyperammonemia, type III; Translations: [Disorder of urea cycle metabolism, unspecified]Onset: 398377-57-9639XtzueatQvyka nutritional; endocrine; and metabolic disorders (7 sources)Failure to usgsdd70-61-2346FleptzuoWldmo screening for suspected conditions (not mental disorders or infectious disease) (12 sources)Raised TSH level; Translations: [Other specified abnormal findings of blood chemistry]Onset: 230132-03-5278ChqyiayfSssbj skin disorders (12 sources)Eruption; Translations: [Rash and other nonspecific skin eruption] 78-00-0528ZzavfsbyRlgis skin disorders (2 sources)Dystrophia unguium; Translations: [Nail dystrophy]02-41-5099Zovrvhsj Other upper respiratory disease (15 sources)Allergic rhinitis due to pollen; Translations: [Allergic rhinitis due to pollen]Onset: 613581-28-9187HgebefiIavt-; endo-; and myocarditis; cardiomyopathy (except that caused by tuberculosis or sexually transmitted disease) (12 sources)Staphylococcal endocarditis; 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 subacute infective endocarditis]60-71-8231YsruhxgtTqiijxqy codes; unclassified (20 sources)Obstructive sleep apnea syndrome; Translations: [Obstructive sleep apnea (adult) (pediatric)]Onset: 189030-80-5477RylhiuuIqberpjx codes; unclassified (6 sources)Obstructive sleep apnea (adult) (pediatric); Translations: [Obstructive sleep apnea (adult)(pediatric)]Onset: 272841-80-4851Hsoxayl Residual codes; unclassified (12 sources)Unable to perform personal care activity; Translations: [Other specified health status]11-25-3153RhsqbzonJvnsbzxe codes; unclassified (4 sources)Other specified health status; Translations: [Other specified conditions influencing health status]46-93-7630FprydvnoCocwzfngbex; intervertebral disc disorders; other back problems (20 sources)Lumbosacral spondylosis with radiculopathy; Translations: [Other spondylosis with radiculopathy, lumbosacral region]Onset: ChronicSpondylosis; intervertebral disc disorders; other back problems (17 sources)Backache; Translations: [Dorsalgia, unspecified]Onset: 02-01-2022 58-30-2175AfydbecbMgunwnu and intentional self-inflicted injury (4 sources)Suicidal thoughts; Translations: [Suicidal ideations]05-16-2025 EpisodicSuperficial injury; contusion (19 sources)Abrasion, elbow area; Translations: [Abrasion of unspecified elbow, initial encounter]Onset: 262994-16-1986LgeakfnrChbcbwm disorders (20 sources)Hypothyroidism; Translations: [Hypothyroidism, unspecified]Onset: 226272-95-7525EgmviqqYrqfsarjmpsz (9 sources)Failure to thrive; Translations: [Failure to thrive]04-08-2022 Unclassified (1 source)LOW BACK PAIN, UNSPECIFIED; Translations: [LOW BACK PAIN, UNSPECIFIED] Onset: 90-86-8337Kbyukfioelbi (2 sources)COUGH, UNSPECIFIED; Translations: [COUGH, UNSPECIFIED]Onset: 82-65-0384Bjkyhdfczwoc (1 source)CONTACT W/AND (SUSP) EXPOS COVID-19; Translations: [CONTACT W/AND (SUSP) EXPOS COVID-19]Onset: 93-55-5165Dfvbjdogqimt (2 sources)Neurosurgeon office information per patient requestUnclassified (2 sources)Neurology office information per patient requestUnclassified (2 sources)Call with any medical concerns.Unclassified (1 source)Call to make an appointment with your primary laser printing operator in 2-4 weeks after discharge.Unclassified (1 source)A Filing Clerk will call you next day between 8am & 5pm. If you miss this call please call back as soon as possible.Urinary tract infections (12 sources)Acute urinary tract infection; Translations: [Urinary tract infection, site not specified]48-56-0530MpxypnriYccve infection (16 sources)Disease caused by 2019-nCoV; Translations: [COVID-19]03-14-2022 Episodic Past or Other Problems Problem ClassificationProblemDateDocumented DateEpisodic/ChronicAbdominal pain (1 source)Unspecified abdominal pain; Translations: [UNSPECIFIED ABDOMINAL PAIN] Onset: 01-52-8325HgauamxjRyazf bronchitis (1 source)Acute bronchitis, unspecified; Translations: [ACUTE BRONCHITIS UNSPECIFIED]Onset: 40-43-8817OgjnzkvhEbwaaqtoeuy chest pain (1 source)Other chest pain; Translations: [OTHER CHEST PAIN]Onset: 01-28-2022 EpisodicOther aftercare (1 source)snf (current) use of insulin; Translations: [WRITING TUTOR CURRENT USE OF INSULIN]Onset: 71-22-3018QkfnirupIsgxf connective tissue disease (4 sources)Iliotibial band syndrome, left leg; Translations: [ILIOTIBIAL BAND SYNDROME LEFT LEG]Onset: 84-54-1572MsofpxbvFtshj connective tissue disease (1 source)Other specified soft tissue disorders; Translations: [OTHER SPEC SOFT TISSUE DISORDERS]Onset: 24-18-9489OudiymulYkgzr fractures (1 source)Wedge compression fracture of T9-T10 vertebra, subsequent encounter for fracture with routine healing; Translations: [Wedge compression fracture of T9-T10 vertebra, subsequent encounter for fracture with routine healing]Onset: 49-11-5834HluojbtgEsctx injuries and conditions due to external causes (4 sources)Other specified injuries of head, initial encounter; Translations: [OTH SPEC INJURIES HEAD INITIAL ENC]Onset: 27-93-5975EbhqgjddWfiqg injuries and conditions due to external causes (1 source)History of falling; Translations: [HISTORY OF FALLING]Onset: 00-16-8658RkvepiiyEvcbv lower respiratory disease (3 sources)Shortness of breath; Translations: [SHORTNESS OF BREATH]Onset: 85-60-3215MhdrkdnrQzyam non-traumatic joint disorders (3 sources)Pain in left knee; Translations: [PAIN IN LEFT KNEE]Onset: 01-18-2022 EpisodicResidual codes; unclassified (1 source)Edema, unspecified; Translations: [EDEMA UNSPECIFIED]Onset: 01-28-2022 EpisodicResidual codes; unclassified (15 sources)Insomnia; Translations: [Insomnia, unspecified]Onset: 09-16-2023 18-54-9454NsekocesVcmxljqcxkoq (1 source)COUGH, UNSPECIFIED; Translations: [COUGH, UNSPECIFIED]Onset: 01-24-2022 Results Test NameValueInterpretationReference RangeFacilityBasic Metabolic Panelon 27-14-6265Upfgl gap [Moles/Vol]8.4 mmol/LNormal6.0-15.0[facility] Physician GroupComment on above:Performed By: #### GLULS #### Point of Care testing ,Calcium [Mass/Vol]8.6 mg/dLNormal8.6-10.3[facility] Physician GroupComment on above:Performed By: #### GLULS #### Point of Care testing ,Chloride [Moles/Vol]103 mmol/BVdxchm32-996H[facility] Physician GroupComment on above:Performed By: #### GLULS #### Point of Care testing ,CO2 [Moles/Vol]28.6 mmol/YTxycmw36.0-31.0[facility] Physician GroupComment on above:Performed By: #### GLULS #### Point of Care testing ,Creatinine [Mass/Vol]1.14 mg/dLNormal0.70-1.30[facility] Phys[facility] Comment on above:Performed By: #### GLULS #### Point of Care testing ,Creatinine Clr Calc Ymeylbgy25.75NormalThe [facility] Physician GroupComment on above:Result Comment: PERFORMED BY: [address] [place] [address] PATHOLOGIST FORESTER AIDE HILDA LEE M.D.Performed By: #### GLULS #### Point of Care testing ,GFR/1.73 sq M.predicted MDRD (S/P/Bld) [Vol rate/Area]mL/min/{1.73_m2}NormalThe [facility] Physician GroupComment on above:Performed By: #### GLULS #### Point of Care testing ,Glucose [Mass/Vol]253 mg/bDPgrr14-071Lzc [facility] Physician GroupComment on above:Result Comment: Random Glucose Reference Range is dependent on time and content of last meal. Glucose of more than 200 mg/dL in a nonstressed, ambulatory subject supports the diagnosis of Diabetes Mellitus. ADA recommended reference rangePerformed By: #### GLULS #### Point of Care testing ,Potassium [Moles/Vol]4.0 mmol/LNormal3.5-5.1[facility] Comment on above:Performed By: #### GLULS #### Point of Care testing ,Sodium [Moles/Vol]136 mmol/VYcwonx420-936Lld [facility] Physician GroupComment on above:Performed By: #### GLULS #### Point of Care testing ,Urea nitrogen [Mass/Vol]16 mg/dLNormal7-25The [facility] Physician GroupComment on above:Performed By: #### GLULS #### Point of Care testing ,Complete Blood Count Auto Diffon 95-23-9436Zmuccvcev (Bld) [#/Vol]0.1 10*3/uL Normal0.0-0.2The [facility] Physician GroupComment on above:Result Comment: PERFORMED BY: [facility] [address] [place] [address] PATHOLOGIST FORESTER AIDE HILDA LEE M.D.Performed By: #### GLULS #### Point of Care testing ,Basophils/100 WBC (Bld)1.2 %Normal.The [facility] Physician GroupComment on above:Performed By: #### GLULS #### Point of Care testing ,Eosinophils (Bld) [#/Vol]0.5 10*3/uLHigh0.0-0.45[facility] Comment on above:Performed By: #### GLULS #### Point of Care testing ,Eosinophils/100 WBC (Bld)7.9 %Normal.The [facility] Physician GroupComment on above:Performed By: #### GLULS #### Point of Care testing ,Erythrocyte distribution width (RBC) [Ratio]17.3 %High12.0-14.8The [facility] Physician GroupComment on above:Performed By: #### GLULS #### Point of Care testing ,Hematocrit (Bld) [Volume fraction]29.8 %Low38.8-50.0The [facility] Physician GroupComment on above:Performed By: #### GLULS #### Point of Care testing ,Hemoglobin (Bld) [Mass/Vol]9.6 g/dLLow13.0-17.0[facility] Comment on above:Performed By: #### GLULS #### Point of Care testing ,Lymphocytes (Bld) [#/Vol]1.1 10*3/uLNormal1.00-4.8[facility] Comment on above:Performed By: #### GLULS #### Point of Care testing ,Lymphocytes/100 WBC (Bld)18.3 %Normal.The [facility] Physician GroupComment on above:Performed By: #### GLULS #### Point of Care testing ,MCH (RBC) [Entitic mass]27.0 pgLow27.5-35.2The [facility] Physician GroupComment on above:Performed By: #### GLULS #### Point of Care testing ,MCV (RBC) [Entitic vol]83.7 kAHbtndm00.5-101[facility] Comment on above:Performed By: #### GLULS #### Point of Care testing ,Mean Corpuscular HGB Conc32.3 g/dLLow32.5-35.6[facility] Physician [facility] Comment on above:Performed By: #### GLULS #### Point of Care testing ,Monocytes (Bld) [#/Vol]0.6 10*3/uLNormal0.0-0.8[facility] Comment on above:Performed By: #### GLULS #### Point of Care testing ,Monocytes/100 WBC (Bld)10.1 %Normal.The [facility] Physician GroupComment on above:Performed By: #### GLULS #### Point of Care testing ,Neutrophils (Bld) [#/Vol]3.9 10*3/uLNormal1.8-7.7[facility] Comment on above:Performed By: #### GLULS #### Point of Care testing ,Neutrophils/100 WBC (Bld)62.5 %Normal.The [facility] Physician GroupComment on above:Performed By: #### GLULS #### Point of Care testing ,NRBC%0.0 /100{WBC}Normal0-0.5The [facility] Physician GroupComment on above: Performed By: #### GLULS #### Point of Care testing ,Platelet mean volume (Bld) [Entitic vol]7.7 fLNormal6.6-10.1The [facility] Physician GroupComment on above:Performed By: #### GLULS #### Point of Care testing ,Platelets (Bld) [#/Vol]188 10*3/cLLgfeqx874-233Gwd [facility] Comment on above:Performed By: #### GLULS #### Point of Care testing ,RBC (Bld) [#/Vol]3.57 10*6/uLLow3.90-5.60[facility] Phys[facility] HospitalComment on above:Performed By: #### GLULS #### Point of Care testing ,WBC (Bld) [#/Vol]6.2 10*3/uLNormal4.1-10.5The [facility] Physician GroupComment on above:Performed By: #### GLULS #### Point of Care testing ,White Blood Count6.2 [CFU]/mLNormal4.1-10.5ThSt. Joseph Regional [facility] Physician GroupComment on above:Performed By: #### GLULS #### Point of Care testing ,Glucose Poct Glucometerson 23-60-1030Ldrhxgn [Mass/Vol]234 mg/dLNoUNC Health Johnston Physician [facility]oul[facility] HospitalComment on above:Result Comment: Random Glucose Reference Range is dependent on time and content of last meal. Glucose of more than 200 mg/dL in a nonstressed, ambulatory subject supports the diagnosis of Diabetes Mellitus. PERFORMED BY: [place] [address] PATHOLOGIST FORESTER AIDE HILDA LEE M.D.Performed By: #### GLULS #### Point of Care testing ,Glucose [Mass/Vol]174 mg/dLWinter Haven Hospital Physician [facility]oula HospitalComment on above: Result Comment: Random Glucose Reference Range is dependent on time and content of last meal. Glucose of more than 200 mg/dL in a nonstressed, ambulatory subject supports the diagnosis of Diabetes Mellitus. PERFORMED BY: [place] [address] PATHOLOGIST FORESTER AIDE HILDA LEE M.D.Performed By: #### PT, PLT #### [place] [address] USAGlucose Poct Glucometerson 06-12-6739Ogkusfu [Mass/Vol]224 mg/dLNormalThe [place]lands Physician GroupComment on above:Result Comment: Random Glucose Reference Range is dependent on time and content of last meal. Glucose of more than 200 mg/dL in a nonstressed, ambulatory subject supports the diagnosis of Diabetes Mellitus. PERFORMED BY: [place] [address] PATHOLOGIST FORESTER AIDE HILDA LEE M.D.Performed By: #### GLULS #### Point of Care testing ,Glucose [Mass/Vol]233 mg/dLWinter Haven Hospital Physician GroupComment on above: Result Comment: Random Glucose Reference Range is dependent on time and content of last meal. Glucose of more than 200 mg/dL in a nonstressed, ambulatory subject supports the diagnosis of Diabetes Mellitus. PERFORMED BY: [place] [address] PATHOLOGIST FORESTER AIDE HILDA LEE M.D.Performed By: #### GLULS #### Point of Care testing ,Glucose [Mass/Vol]282 mg/dLNoUNC Health Johnston Physician GroupComment on above: Result Comment: Random Glucose Reference Range is dependent on time and content of last meal. Glucose of more than 200 mg/dL in a nonstressed, ambulatory subject supports the diagnosis of Diabetes Mellitus. PERFORMED BY: [place] [address] PATHOLOGIST FORESTER AIDE HILDA LEE M.D.Performed By: #### GLULS #### Point of Care testing ,Lsaoetw8Xxf5: Cleaned MeterNoUNC Health Johnston Physician GroupComment on above: Result Comment: PERFORMED BY: [place] [address] PATHOLOGIST FORESTER AIDE HILDA LEE M.D.Performed By: #### PT, PLT #### [place] [address] USAGlucose [Mass/Vol]192 mg/dLNoUNC Health Johnston Physician GroupComment on above:Result Comment: Random Glucose Reference Range is dependent on time and content of last meal. Glucose of more than 200 mg/dL in a nonstressed, ambulatory subject supports the diagnosis of Diabetes Mellitus.Performed By: #### PT, PLT #### [place] [address] USAGlucose Poct Glucometerson 01-11-8055Ttbrqhn6Oyy9: Cleaned MeterNoUNC Health Johnston Physician GroupComment on above:Result Comment: PERFORMED BY: [place] [address] PATHOLOGIST FORESTER AIDE HILDA LEE M.D.Performed By: #### PT, PLT #### [place] [address] USAGlucose [Mass/Vol]214 mg/dLNoUNC Health Johnston Physician GroupComment on above:Result Comment: Random Glucose Reference Range is dependent on time and content of last meal. Glucose of more than 200 mg/dL in a nonstressed, ambulatory subject supports the diagnosis of Diabetes Mellitus.Performed By: #### PT, PLT #### [place] [address] [id number]: Cleaned MeterNoUNC Health Johnston Physician GroupComment on above:Result Comment: PERFORMED BY: [place] [address] PATHOLOGIST FORESTER AIDE HILDA LEE M.D.Performed By: #### PT, PLT #### [place] [address] USAGlucose [Mass/Vol]243 mg/dLNoUNC Health Johnston Physician GroupComment on above:Result Comment: Random Glucose Reference Range is dependent on time and content of last meal. Glucose of more than 200 mg/dL in a nonstressed, ambulatory subject supports the diagnosis of Diabetes Mellitus.Performed By: #### PT, PLT #### [place] [address] [id number]: Cleaned MeterNormFlorida Medical Center Physician GroupComment on above:Result Comment: PERFORMED BY: [place] [address] PATHOLOGIST FORESTER AIDE HILDA LEE M.D.Performed By: #### PT, PLT #### [place] [address] USAGlucose [Mass/Vol]229 mg/dLNoUNC Health Johnston Physician GroupComment on above:Result Comment: Random Glucose Reference Range is dependent on time and content of last meal. Glucose of more than 200 mg/dL in a nonstressed, ambulatory subject supports the diagnosis of Diabetes Mellitus.Performed By: #### PT, PLT #### [place] [address] USAGlucose [Mass/Vol]174 mg/dLNoUNC Health Johnston Physician GroupComment on above:Result Comment: Random Glucose Reference Range is dependent on time and content of last meal. Glucose of more than 200 mg/dL in a nonstressed, ambulatory subject supports the diagnosis of Diabetes Mellitus. PERFORMED BY: [place] [address] PATHOLOGIST FORESTER AIDE HILDA LEE M.D.Performed By: #### PT, PLT #### [place] [address] USAGlucose Poct Glucometerson 49-96-0182Wxcpqfx [Mass/Vol]244 mg/dLNoUNC Health Johnston Physician GroupComment on above:Result Comment: Random Glucose Reference Range is dependent on time and content of last meal. Glucose of more than 200 mg/dL in a nonstressed, ambulatory subject supports the diagnosis of Diabetes Mellitus. PERFORMED BY: [place] [address] PATHOLOGIST FORESTER AIDE HILDA LEE M.D.Performed By: #### PT, PLT #### [place] [address] [id number]: Cleaned MeterNoUNC Health Johnston Physician GroupComment on above:Result Comment: PERFORMED BY: [place] [address] PATHOLOGIST FORESTER AIDE HILDA LEE M.D.Performed By: #### PT, PLT #### [place] [address] [place] [address] USAGlucose [Mass/Vol]221 mg/dLNoUNC Health Johnston Physician GroupComment on above:Result Comment: Random Glucose Reference Range is dependent on time and content of last meal. Glucose of more than 200 mg/dL in a nonstressed, ambulatory subject supports the diagnosis of Diabetes Mellitus.Performed By: #### PT, PLT #### [facility] [address] [place] [address] [id number]: Cleaned MeterNoUNC Health Johnston Physician GroupComment on above:Result Comment: PERFORMED BY: [place] [address] PATHOLOGIST FORESTER AIDE HILDA LEE M.D.Performed By: #### GLULS #### Point of Care testing ,Glucose [Mass/Vol]268 mg/dLWinter Haven Hospital Physician GroupComment on above: Result Comment: Random Glucose Reference Range is dependent on time and content of last meal. Glucose of more than 200 mg/dL in a nonstressed, ambulatory subject supports the diagnosis of Diabetes Mellitus.Performed By: #### GLULS #### Point of Care testing ,Glucose [Mass/Vol]208 mg/dLWinter Haven Hospital Physician GroupComment on above: Result Comment: Random Glucose Reference Range is dependent on time and content of last meal. Glucose of more than 200 mg/dL in a nonstressed, ambulatory subject supports the diagnosis of Diabetes Mellitus. PERFORMED BY: [place] [address] PATHOLOGIST FORESTER AIDE HILDA LEE M.D.Performed By: #### PT, PLT #### [facility] [address] [place] [address] USAGlucose Poct Glucometerson 55-73-4341Rnxhaxg [Mass/Vol]226 mg/dLWinter Haven Hospital Physician GroupComment on above:Result Comment: Random Glucose Reference Range is dependent on time and content of last meal. Glucose of more than 200 mg/dL in a nonstressed, ambulatory subject supports the diagnosis of Diabetes Mellitus. PERFORMED BY: [address] [place] [address] PATHOLOGIST FORESTER AIDE HILDA LEE M.D.Performed By: #### GLULS #### Point of Care testing ,Glucose [Mass/Vol]224 mg/dLNoUNC Health Johnston Physician GroupComment on above: Result Comment: Random Glucose Reference Range is dependent on time and content of last meal. Glucose of more than 200 mg/dL in a nonstressed, ambulatory subject supports the diagnosis of Diabetes Mellitus. PERFORMED BY: [place] [address] PATHOLOGIST FORESTER AIDE HILDA LEE M.D.Performed By: #### TSH3 wRFLX, LIPID, [id number] #### [place] [address] USAGlucose [Mass/Vol]225 mg/dLNoUNC Health Johnston Physician GroupComment on above:Result Comment: Random Glucose Reference Range is dependent on time and content of last meal. Glucose of more than 200 mg/dL in a nonstressed, ambulatory subject supports the diagnosis of Diabetes Mellitus. PERFORMED BY: [place] [address] PATHOLOGIST FORESTER AIDE HILDA LEE M.D.Performed By: #### TSH3 wRFLX, LIPID, [id number] #### [place] [address] USAGlucose [Mass/Vol]178 mg/dLNoUNC Health Johnston Physician GroupComment on above:Result Comment: Random Glucose Reference Range is dependent on time and content of last meal. Glucose of more than 200 mg/dL in a nonstressed, ambulatory subject supports the diagnosis of Diabetes Mellitus. PERFORMED BY: [place] [address] PATHOLOGIST FORESTER AIDE HILDA LEE M.D.Performed By: #### TSH3 wRFLX, LIPID, [id number] #### [place] [address] USAA1C with Estimated Average Gluon 68-35-0926Tnaccgb [Mass/Vol]197 mg/dLNoCrossroads Regional Medical Centerlands Physician GroupComment on above:Result Comment: PERFORMED BY: [place] [address] PATHOLOGIST FORESTER AIDE HILDA LEE M.D.Performed By: #### TSH3 wRFLX, LIPID, [id number] #### [place] [id number] BWEMiF0s (Bld) [Mass fraction]8.5 %High4.3-5.6The [facility] Physician GroupComment on above:Result Comment: Increased risk for diabetes: 5.7 - 6.4 diabetes: >6.4 glycemic control for adults with diabetes: <7.0Performed By: #### TSH3 wRFLX, LIPID, [id number] #### [place] [address] USAComplete Blood Count Auto Diffon 90-17-1614Mzgnnnjhd (Bld) [#/Vol]0.1 10*3/uLNormal0.0-0.2The [facility] Hospital Physician GroupComment on above: Result Comment: PERFORMED BY: [place] [address] PATHOLOGIST FORESTER AIDE HILDA LEE M.D.Performed By: #### TSH3 wRFLX, LIPID, [id number] #### [place] [id number] USABasophils/100 WBC (Bld)1.3 %Normal.The [facility] Physician GroupComment on above:Performed By: #### TSH3 wRFLX, LIPID, [id number] #### [address] [address] USAEosinophils (Bld) [#/Vol]0.4 10*3/uLNormal0.0-0.45The [facility] Physician GroupComment on above:Performed By: #### TSH3 wRFLX, LIPID, [id number] #### [place] [id number] USAEosinophils/100 WBC (Bld)7.5 %Normal.The [facility] Physician GroupComment on above:Performed By: #### TSH3 wRFLX, LIPID, [id number] #### [place] [address] USAErythrocyte distribution width (RBC) [Ratio]17.6 %High 12.0-14.8The [facility] Physician GroupComment on above:Performed By: #### TSH3 wRFLX, LIPID, [id number] #### [place] [address] USAHematocrit (Bld) [Volume fraction]29.8 %Low38.8-50.0The [facility] Physician GroupComment on above:Performed By: #### TSH3 wRFLX, LIPID, [id number] #### [place] [address] USAHemoglobin (Bld) [Mass/Vol]9.7 g/dLLow13.0-17.0The [facility] Physician GroupComment on above:Performed By: #### TSH3 wRFLX, LIPID, [id number] #### [place] [address] USALymphocytes (Bld) [#/Vol]1.2 10*3/uLNormal1.00-4.8The [facility] Physician GroupComment on above:Performed By: #### TSH3 wRFLX, LIPID, [id number] #### [place] [address] USALymphocytes/100 WBC (Bld)24.0 %Normal.The [facility] Physician GroupComment on above:Performed By: #### TSH3 wRFLX, LIPID, [id number] #### [place] [address] USAMCH (RBC) [Entitic mass]27.3 pgLow27.5-35.2The [facility] Physician GroupComment on above:Performed By: #### TSH3 wRFLX, LIPID, [id number] #### [place] [address] USAMCV (RBC) [Entitic vol]83.8 aQNakoug46.5-101The [facility] Physician GroupComment on above:Performed By: #### TSH3 wRFLX, LIPID, [id number] #### [place] [address] USAMean Corpuscular HGB Conc32.6 g/ePXgacrg08.5-35.6The [facility] Physician GroupComment on above:Performed By: #### TSH3 wRFLX, LIPID, [id number] #### [place] [address] USAMonocytes (Bld) [#/Vol]0.5 10*3/uLNormal0.0-0.8The [facility] Physician GroupComment on above:Performed By: #### TSH3 wRFLX, LIPID, [id number] #### [place] [address] USAMonocytes/100 WBC (Bld)10.7 %Normal.The [facility] Physician GroupComment on above:Performed By: #### TSH3 wRFLX, LIPID, [id number] #### [place] [address] USANeutrophils (Bld) [#/Vol]2.8 10*3/uLNormal1.8-7.7The [facility] Physician GroupComment on above:Performed By: #### TSH3 wRFLX, LIPID, [id number] #### [place] [address] USANeutrophils/100 WBC (Bld)56.5 %Normal.The [facility] Hospital Physician GroupComment on above:Performed By: #### TSH3 wRFLX, LIPID, [id number] #### [place] [address] USANRBC%0.2 /100{WBC}Normal0-0.5The [facility] Comment on above:Performed By: #### TSH3 wRFLX, LIPID, [id number] #### [facility] [address] [place] [address] USAPlatelet mean volume (Bld) [Entitic vol]7.8 fLNormal 6.6-10.1The [facility] Physician GroupComment on above:Performed By: #### TSH3 wRFLX, LIPID, [id number] #### [place] [address] USAPlatelets (Bld) [#/Vol]198 10*3/fAKaacdg598-078Mbq [facility] Physician GroupComment on above:Performed By: #### TSH3 wRFLX, LIPID, [id number] #### [place] [address] USARBC (Bld) [#/Vol]3.55 10*6/uLLow3.90-5.60The [facility] Physician GroupComment on above:Performed By: #### TSH3 wRFLX, LIPID, [id number] #### [place] [address] USAWBC (Bld) [#/Vol]5.0 10*3/uLNormal4.1-10.5The [facility] Physician GroupComment on above:Performed By: #### TSH3 wRFLX, LIPID, [id number] #### [place] [address] USAWhite Blood Count5.0 [CFU]/mLNormal4.1-10.5The [facility] Physician GroupComment on above:Performed By: #### TSH3 wRFLX, LIPID, [id number] #### [place] [address] USAComprehensive Metabolic Panelon 78-50-2092Mruddly [Mass/Vol]3.0 g/dLLow3.5-5.7The [facility] Physician GroupComment on above: Performed By: #### TSH3 wRFLX, LIPID, [id number] #### [place] [address] USAAlbumin/Globulin [Mass ratio]0.8 {ratio}NormalThe [facility] Access Hospital Physician GroupComment on above:Performed By: #### TSH3 wRFLX, LIPID, [id number] #### [facility] [address] [place] [address] USAALP [Catalytic activity/Vol]178 U/BRhwt96-851Jyi [facility] Physician GroupComment on above:Performed By: #### TSH3 wRFLX, LIPID, [id number] #### [place] [address] USAALT [Catalytic activity/Vol]11 U/LNormal7-52The [facility] Physician GroupComment on above:Performed By: #### TSH3 wRFLX, LIPID, [id number] #### [place] [address] USAAnion gap [Moles/Vol]10.8 mmol/LNormal6.0-15.0The [facility] Physician GroupComment on above:Performed By: #### TSH3 wRFLX, LIPID, [id number] #### [place] [address] USAAST [Catalytic activity/Vol]21 U/KRgkmkd86-78Hnl [facility] Physician GroupComment on above:Performed By: #### TSH3 wRFLX, LIPID, [id number] #### [place] [address] USABilirubin [Mass/Vol]0.4 mg/dLNormal0.3-1.0The [facility] Physician GroupComment on above:Performed By: #### TSH3 wRFLX, LIPID, [id number] #### [place] [address] USACalcium [Mass/Vol]8.5 mg/dLLow8.6-10.3The [facility] Physician GroupComment on above:Performed By: #### TSH3 wRFLX, LIPID, [id number] #### [place] [address] USAChloride [Moles/Vol]104 mmol/JFlvoev12-014Krh [facility] Physician GroupComment on above:Performed By: #### TSH3 wRFLX, LIPID, [id number] #### [place] [address] USACO2 [Moles/Vol]26.5 mmol/ITrlluv16.0-31.0The [facility] Physician GroupComment on above:Performed By: #### TSH3 wRFLX, LIPID, [id number] #### [facility] [address] [place] [address] USACreatinine [Mass/Vol]1.20 mg/dLNormal0.70-1.30The [facility] Physician GroupComment on above:Performed By: #### TSH3 wRFLX, LIPID, [id number] #### [facility] [address] [place] [address] USACreatinine Clr Calc Rpinusce67.21NoUNC Health Johnston Physician GroupComment on above:Performed By: #### TSH3 wRFLX, LIPID, [id number] #### [place] [address] USAGFR/1.73 sq M.predicted MDRD (S/P/Bld) [Vol rate/Area] mL/min/{1.73_m2}NormalThe Critical Access Hospital Physician GroupComment on above:Performed By: #### TSH3 wRFLX, LIPID, [id number] #### [place] [address] USAGlobulin (S) [Mass/Vol]3.9 g/dLNoUNC Health Johnston Physician GroupComment on above:Performed By: #### TSH3 wRFLX, LIPID, [id number] #### [place] [address] USAGlucose [Mass/Vol]245 mg/gPCouo98-996Bym [facility] Physician GroupComment on above:Result Comment: Random Glucose Reference Range is dependent on time and content of last meal. Glucose of more than 200 mg/dL in a nonstressed, ambulatory subject supports the diagnosis of Diabetes Mellitus. ADA recommended reference rangePerformed By: #### TSH3 wRFLX, LIPID, [id number] #### [place] [address] USAPotassium [Moles/Vol]4.3 mmol/LNormal3.5-5.1The [facility] Physician GroupComment on above:Performed By: #### TSH3 wRFLX, LIPID, [id number] #### [place] [address] USAProtein [Mass/Vol]6.9 g/dLNormal6.4-8.9The [facility] Physician GroupComment on above:Performed By: #### TSH3 wRFLX, LIPID, [id number] #### [place] [address] USASodium [Moles/Vol]137 mmol/CDbprmz510-595Myn [facility] Physician GroupComment on above:Performed By: #### TSH3 wRFLX, LIPID, [id number] #### [place] [address] USAUrea nitrogen [Mass/Vol]21 mg/dLNormal7-25The [facility] Hospital Physician GroupComment on above:Performed By: #### TSH3 wRFLX, LIPID, [id number] #### [place] [address] USAFerritinon 84-98-4134Uakpjmfq [Mass/Vol]7.6 ng/mLLow 23.9-336.2The [facility] Hospital Physician GroupComment on above:Performed By: #### TSH3 wRFLX, LIPID, [id number] #### [place] [address] USAGlucose Poct Glucometerson 44-05-7414Djdcnre [Mass/Vol]247 mg/dLNormFlorida Medical Center Physician GroupComment on above:Result Comment: Random Glucose Reference Range is dependent on time and content of last meal. Glucose of more than 200 mg/dL in a nonstressed, ambulatory subject supports the diagnosis of Diabetes Mellitus. PERFORMED BY: [place] [address] PATHOLOGIST FORESTER AIDE HILDA LEE M.D.Performed By: #### PT, PLT #### [place] [address] USAGlucose [Mass/Vol]296 mg/dLNormFlorida Medical Center Physician GroupComment on above:Result Comment: Random Glucose Reference Range is dependent on time and content of last meal. Glucose of more than 200 mg/dL in a nonstressed, ambulatory subject supports the diagnosis of Diabetes Mellitus. PERFORMED BY: [place] [address] PATHOLOGIST FORESTER AIDE HILDA LEE M.D.Performed By: #### TSH3 wRFLX, LIPID, [id number] #### [place] [address] USAGlucose [Mass/Vol]348 mg/dLNoUNC Health Johnston Physician GroupComment on above:Result Comment: Random Glucose Reference Range is dependent on time and content of last meal. Glucose of more than 200 mg/dL in a nonstressed, ambulatory subject supports the diagnosis of Diabetes Mellitus. PERFORMED BY: [place] [address] PATHOLOGIST FORESTER AIDE HILDA LEE M.D.Performed By: #### PT, PLT #### [place] [address] EZRVlypcbt1Hbv3: Cleaned MeterNoUNC Health Johnston Physician GroupComment on above:Result Comment: PERFORMED BY: [place] [address] PATHOLOGIST FORESTER AIDE HILDA LEE M.D.Performed By: #### PT, PLT #### [place] [address] USAGlucose [Mass/Vol]246 mg/dLWinter Haven Hospital Physician GroupComment on above:Result Comment: Random Glucose Reference Range is dependent on time and content of last meal. Glucose of more than 200 mg/dL in a nonstressed, ambulatory subject supports the diagnosis of Diabetes Mellitus.Performed By: #### PT, PLT #### [place] [id number] USAIron and TIBC Profileon 05-22-2025% Iron Saturation4.7 % Qti85-74Qai [facility] Physician GroupComment on above:Performed By: #### TSH3 wRFLX, LIPID, [id number] #### [facility] [address] [place] [address] USAIron [Mass/Vol]18 ug/lLZnw50-511Kcp [facility] Physician GroupComment on above:Performed By: #### TSH3 wRFLX, LIPID, [id number] #### [facility] [address] [place] [address] USATotal Iron Binding Fucxfgji477 ug/oYLswehx984-617Uyv [facility] Physician GroupComment on above:Performed By: #### TSH3 wRFLX, LIPID, [id number] #### [place] [address] USATransferrin [Mass/Vol]271 mg/eVMqpkqo549-245Fpy [facility] Physician GroupComment on above:Performed By: #### TSH3 wRFLX, LIPID, [id number] #### [place] [address] USAMagnesiumon 60-66-6401Zoirwqaxz [Mass/Vol]1.4 mg/dLLow 1.9-2.7The [facility] Hospital Physician GroupComment on above:Performed By: #### TSH3 wRFLX, LIPID, [id number] #### [facility] [address] [place] [address] USAVit. B12/Folate Profileon 13-82-4357Xhofijtuu (Vitamin B12) [Mass/Vol]247 pg/oBZoeiwa079-915Ugp [facility] Physician GroupComment on above:Performed By: #### TSH3 wRFLX, LIPID, [id number] #### [facility] [address] [place] [address] FTUGaulkt67.4 ng/mLNormal>5.9The [facility] Physician Group Comment on above:Result Comment: Folate reference range: >5.9 ng/ml The WHO technical consultation on folate and vitamin b12 deficiencies has determined that folate concentrations less than 4 ng/ml are considered deficient. PERFORMED BY: [place] [address] PATHOLOGIST FORESTER AIDE HILDA LEE M.D.Performed By: #### TSH3 wRFLX, LIPID, [id number] #### [address] [address] USAGlucose Poct Glucometerson 53-97-4635Ihtxyuk6Ael6: Cleaned MeterNoUNC Health Johnston Physician GroupComment on above:Result Comment: PERFORMED BY: [place] [address] PATHOLOGIST FORESTER AIDE HILDA LEE M.D.Performed By: #### PT, PLT #### [place] [id number] USAGlucose [Mass/Vol]352 mg/dLNoUNC Health Johnston Physician GroupComment on above:Result Comment: Random Glucose Reference Range is dependent on time and content of last meal. Glucose of more than 200 mg/dL in a nonstressed, ambulatory subject supports the diagnosis of Diabetes Mellitus.Performed By: #### PT, PLT #### [place] [address] USAGlucose [Mass/Vol]266 mg/dLNoUNC Health Johnston Physician GroupComment on above:Result Comment: Random Glucose Reference Range is dependent on time and content of last meal. Glucose of more than 200 mg/dL in a nonstressed, ambulatory subject supports the diagnosis of Diabetes Mellitus. PERFORMED BY: [place] [address] PATHOLOGIST FORESTER AIDE HILDA LEE M.D.Performed By: #### TSH3 wRFLX, LIPID, [id number] #### [place] [id number] USAGlucose [Mass/Vol]167 mg/dLWinter Haven Hospital Physician GroupComment on above:Result Comment: Random Glucose Reference Range is dependent on time and content of last meal. Glucose of more than 200 mg/dL in a nonstressed, ambulatory subject supports the diagnosis of Diabetes Mellitus. PERFORMED BY: [address] [address] PATHOLOGIST FORESTER AIDE HILDA LEE M.D.Performed By: #### TSH3 wRFLX, LIPID, [id number] #### [facility] [address] [place] [address] USAGlucose Poct Glucometerson 48-34-6611Bvbkdcg [Mass/Vol]202 mg/dLNoUNC Health Johnston Physician GroupComment on above:Result Comment: Random Glucose Reference Range is dependent on time and content of last meal. Glucose of more than 200 mg/dL in a nonstressed, ambulatory subject supports the diagnosis of Diabetes Mellitus. PERFORMED BY: [place] [address] PATHOLOGIST FORESTER AIDE HILDA LEE M.D.Performed By: #### TSH3 wRFLX, LIPID, [id number] #### [place] [address] USAGlucose [Mass/Vol]196 mg/dLNoUNC Health Johnston Physician GroupComment on above:Result Comment: Random Glucose Reference Range is dependent on time and content of last meal. Glucose of more than 200 mg/dL in a nonstressed, ambulatory subject supports the diagnosis of Diabetes Mellitus. PERFORMED BY: [place] [address] PATHOLOGIST FORESTER AIDE HILDA LEE M.D.Performed By: #### PT, PLT #### [address] [address] USAGlucose Poct Glucometerson 00-95-8461Seogkke [Mass/Vol]310 mg/dLNoUNC Health Johnston Physician GroupComment on above:Result Comment: Random Glucose Reference Range is dependent on time and content of last meal. Glucose of more than 200 mg/dL in a nonstressed, ambulatory subject supports the diagnosis of Diabetes Mellitus. PERFORMED BY: [place] [address] PATHOLOGIST FORESTER AIDE HILDA LEE M.D.Performed By: #### TSH3 wRFLX, LIPID, [id number] #### [address] [address] USAGlucose [Mass/Vol]175 mg/dLNormFlorida Medical Center Physician GroupComment on above:Result Comment: Random Glucose Reference Range is dependent on time and content of last meal. Glucose of more than 200 mg/dL in a nonstressed, ambulatory subject supports the diagnosis of Diabetes Mellitus. PERFORMED BY: [place] [address] PATHOLOGIST FORESTER AIDE HILDA LEE M.D.Performed By: #### PT, PLT #### [facility] [address] [place] [address] USAGlucose Poct Glucometerson 11-47-8222Ertuhav [Mass/Vol]234 mg/dLNormFlorida Medical Center Physician GroupComment on above:Result Comment: Random Glucose Reference Range is dependent on time and content of last meal. Glucose of more than 200 mg/dL in a nonstressed, ambulatory subject supports the diagnosis of Diabetes Mellitus. PERFORMED BY: [place] [address] PATHOLOGIST FORESTER AIDE HILDA LEE M.D.Performed By: #### TSH3 wRFLX, LIPID, [id number] #### [place] [address] USAGlucose [Mass/Vol]148 mg/dLNoUNC Health Johnston Physician GroupComment on above:Result Comment: Random Glucose Reference Range is dependent on time and content of last meal. Glucose of more than 200 mg/dL in a nonstressed, ambulatory subject supports the diagnosis of Diabetes Mellitus. PERFORMED BY: [place] [address] PATHOLOGIST FORESTER AIDE HILDA LEE M.D.Performed By: #### PT, PLT #### [place] [id number] USAECG 12 lead ECGon 56-71-6070VOH 12 lead ECGPEOPLES HOS[facility]ITAL [place] [id number] Electrocardiograph Report Signed Patient: Evelin Patterson MR#: [id number] 005 : 1955 Acct:[id number] Age/Sex: 69 / M ADM Date: 05/16/25 Loc: Room: [address] [place] [address] Type: ADM IN Attending Dr: Juan A [...] MUS Signed By Shawn Ireland MD 1 [address]St[facility] John's HospitalGlucose Poct Glucometerson 11-08-2552Rgkthlq4Gei5: Cleaned MeterSt. John's HospitalComment on above:Result Comment: PERFORMED BY: [place] [address] PATHOLOGIST FORESTER AIDE HILDA LEE M.D.Performed By: #### PT, PLT #### [place] [address] USAGlucose [Mass/Vol]186 mg/dLWinter Haven Hospital Physician Pascagoula HospitalComment on above:Result Comment: Random Glucose Reference Range is dependent on time and content of last meal. Glucose of more than 200 mg/dL in a nonstressed, ambulatory subject supports the diagnosis of Diabetes Mellitus.Performed By: #### PT, PLT #### [place] [address] USAGlucose [Mass/Vol]180 mg/dLWinter Haven Hospital Physician [facility]ascagoula HospitalComment on above:Result Comment: Random Glucose Reference Range is dependent on time and content of last meal. Glucose of more than 200 mg/dL in a nonstressed, ambulatory subject supports the diagnosis of Diabetes Mellitus. PERFORMED BY: [place] [address] PATHOLOGIST FORESTER AIDE HILDA LEE M.D.Performed By: #### PT, PLT #### [facility] [address] [place] [address] USAAlanine aminotransferase [Enzymatic activity/volume] in Serum or PlasmaOrdered By: Carmine Gutierrez on 72-62-0571HAZ [Catalytic activity/Vol]13 U/LNormal7-52Green Cross HospitalComment on above: Performed By: #### GLULS #### Point of Care testing ,Albumin [Mass/volume] in Serum or Plasma by Bromocresol green (BCG) dye binding methoOrdered By: Carmine Gutierrez on 33-33-8365Orjqjpt BCG dye [Mass/Vol]3.3 g/dL Low3.5-5.7FWood County HospitalAlkaline phosphatase [Enzymatic activity/volume] in Serum or PlasmaOrdered By: Carmine Gutierrez on 13-23-3737HTO [Catalytic activity/Vol]149 U/PRqfq51-114NntfkvzxdGreen Cross Hospital Comment on above:Performed By: #### GLULS #### Point of Care testing ,Amphetamine Screen Ql (U)Ordered By: Carmine Gutierrez on 09-90-9910Vivkixrvjzoj Ql (U)NegativeNegativeGreen Cross HospitalAppearance of UrineOrdered By: Carmine Gutierrez on 75-14-9782Sdblldfwag (U)ClearNormalClearGreen Cross HospitalComment on above:Order Comment: PER BASIN CLEANER AGUILA PT ADMITTED FROM ER. USE ER BLOOD-[id number] By: #### TSH3 wRFLX, LIPID, [id number] #### [facility] [address] [place], [place] [id number] USAAspartate aminotransferase [Enzymatic activity/volume] in Serum or PlasmaOrdered By: Carmine Gutierrez on 29-08-6124BPX [Catalytic activity/Vol]25 U/XQbtrdf78-41DzxbatxitGreen Cross HospitalComment on above: Performed By: #### GLULS #### Point of Care testing ,Bacteria [Presence] in Urine by AutomatedOrdered By: Carmine Gutierrez on 05-16-2025 Bacteria Auto Ql (U)Rare [HPF]None SeenGreen Cross Hospital Barbiturates [Presence] in Urine by Screen methodOrdered By: Carmine Gutierrez on 05-06-3098Awkecainiiri Screen Ql (U)NegativeNegHarrison Community HospitalBasophils [#/volume] in Blood by Automated countOrdered By: Carmine Gutierrez on 31-96-4982Wdeoufmyy (Bld) [#/Vol]0.1 10*3/uLNormal0.0-0.2FWood County HospitalComment on above:Result Comment: PERFORMED BY: [address] [place] [address] PATHOLOGIST FORESTER AIDE HILDA LEE M.D.Performed By: #### GLULS #### Point of Care testing ,Basophils/100 leukocytes in Blood by Automated countOrdered By: Carmine Gutierrez on 27-01-2123Ehrhtwlzm/100 WBC (Bld)1.4 %Normal.[facility] Comment on above:Performed By: #### GLULS #### Point of Care testing ,Benzodiazepines Screen Ql (U)Ordered By: Carmine Gutierrez on 05-16-2025 Benzodiazepines Ql (U)NegativeNegHarrison Community Hospital Benzoylecgonine [Presence] in Urine by Screen methodOrdered By: Carmine Gutierrez on 71-84-0859Fqgiuxejdpnswwo Screen Ql (U)NegativeNegHarrison Community HospitalBilirubin Test strip Ql (U)Ordered By: Carmine Gutierrez on 05-16-2025 Bilirubin Ql (U)NegativeNegHarrison Community HospitalBilirubin.total [Mass/volume] in Serum or PlasmaOrdered By: Carmine Gutierrez on 41-69-4571Iwpjxbmho [Mass/Vol]0.5 mg/dLNormal0.3-1.0Green Cross HospitalComment on above:Performed By: #### GLULS #### Point of Care testing ,Calcium [Mass/volume] in Serum or PlasmaOrdered By: Carmine Gutierrez on 05-16-2025 Calcium [Mass/Vol]8.4 mg/dLLow8.6-10.3FWood County HospitalComment on above:Performed By: #### GLULS #### Point of Care testing ,Cannabinoids [Presence] in Urine by Screen methodOrdered By: Carmine Gutierrez on 66-84-3780Xoaxvbetxorx Screen Ql (U)NegativeNegativeGreen Cross HospitalComment on above:These are unconfirmed results and should not be used for legal purposes. Drug Cut-Off Concentration: AMPH 1000 ng/mL FRANK 200 ng/mL SAFIA 200 ng/mL COCM 300 ng/mL OP 300 ng/mL PCP 25 ng/mL THC 20 ng/mLCarbon dioxide, total [Moles/volume] in Serum or PlasmaOrdered By: aCrmine Gutierrez on 59-22-0903RM2 [Moles/Vol]25.4 mmol/VPcqvlr25.0-31.0Green Cross HospitalComment on above:Performed By: #### GLULS #### Point of Care testing ,Chloride [Moles/volume] in Serum or PlasmaOrdered By: Carmine Gutierrez on 57-65-6313Pseyqyun [Moles/Vol]105 mmol/BPmxume58-687SjmlgzwexGreen Cross HospitalComment on above:Performed By: #### GLULS #### Point of Care testing ,Color of Urine by AutoOrdered By: Carmine Gutierrez on 63-82-6401Bkghu (U)Yellow NormalYellowGreen Cross HospitalComment on above:Order Comment: PER BASIN CLEANER AGUILA PT ADMITTED FROM ER. USE ER BLOOD-[id number] By: #### TSH3 wRFLX, LIPID, [id number] #### [facility] [address] [place] [address] USAComplete Blood Count Auto Diffon 30-53-2743Nvof Corpuscular HGB Conc32.3 g/dLLow32.5-35.6The [facility] Physician GroupComment on above:Performed By: #### GLULS #### Point of Care testing ,Monocytes/100 WBC (Bld)20.40 %High0.00-20.00[facility] Comment on above:Result Comment: For adults in ED, MDW > 20.0 may be associated with a higher risk of sepsis during the first 12 hrs of hospital admissionPerformed By: #### GLULS #### Point of Care testing ,NRBC%0.0 /100{WBC}Normal0-0.5The [facility] Physician GroupComment on above: Performed By: #### GLULS #### Point of Care testing ,White Blood Count5.7 [CFU]/mLNormal4.1-10.5The [facility] Physician GroupComment on above:Performed By: #### GLULS #### Point of Care testing ,Comprehensive Metabolic Panelon 23-22-8026Aghpzvd [Mass/Vol]3.3 g/dLLow3.5-5.7 [facility] Physician GroupComment on above:Performed By: #### GLULS #### Point of Care testing ,Creatinine Clr Calc Nnwghvyh85.78NormalThe [facility] Access Hospital Physician GroupComment on above:Performed By: #### GLULS #### Point of Care testing ,GFR/1.73 sq M.predicted MDRD (S/P/Bld) [Vol rate/Area]51.534 mL/min/{1.73_m2} NormalThe [facility] Access Hospital Physician GroupComment on above:Performed By: #### GLULS #### Point of Care testing ,Creatinine [Mass/volume] in Serum or PlasmaOrdered By: Carmine Gutierrez on 96-24-1420Apxcmpqdas [Mass/Vol]1.48 mg/dLHigh0.70-1.30Green Cross HospitalComment on above:Performed By: #### GLULS #### Point of Care testing ,Dipstick and Microscopicon 76-69-5604Ugspipcm,UrineRareNormalNone SeenThe [facility] Hospital Physician GroupComment on above:Order Comment: PER BASIN CLEANER AGUILA PT ADMITTED FROM ER. USE ER BLOOD-[id number] By: #### TSH3 wRFLX, LIPID, [id number] #### [facility] [address] [place] [address] USABilirubin,UrineNegativeNormalNegativeThe [facility] Hospital Physician GroupComment on above:Order Comment: PER BASIN CLEANER AGUILA PT ADMITTED FROM ER. USE ER BLOOD-[id number] By: #### TSH3 wRFLX, LIPID, [id number] #### [place] [address] USAGlucose Ql (U)200 mg/dLNormalNormFlorida Medical Center Physician GroupComment on above:Order Comment: PER BASIN CLEANER AGUILA PT ADMITTED FROM ER. USE ER BLOOD-[id number] By: #### TSH3 wRFLX, LIPID, [id number] #### [place] [address] USAGranular Casts, Urine5-9NormalNone SeenHca Florida Highlands Hospital Physician GroupComment on above:Order Comment: PER BASIN CLEANER AGUILA PT ADMITTED FROM ER. USE ER BLOOD-[id number] By: #### TSH3 wRFLX, LIPID, [id number] #### [place] [address] USAHyaline Casts,Myjlk1-5Xrbutv9-7Gfl [facility] Physician GroupComment on above:Order Comment: PER BASIN CLEANER AGUILA PT ADMITTED FROM ER. USE ER BLOOD-[id number] By: #### TSH3 wRFLX, LIPID, [id number] #### [place] [address] USAMucus,UrineRareNormalHca Florida Highlands Hospital Physician GroupComment on above:Order Comment: PER BASIN CLEANER AGUILA PT ADMITTED FROM ER. USE ER BLOOD-[id number] Comment: PERFORMED BY: [place] [address] PATHOLOGIST FORESTER AIDE HILDA LEE M.D.Performed By: #### TSH3 wRFLX, LIPID, [id number] #### [place] [address] USANitrite,UrineNegativeNormalNegativeThe [facility] Physician GroupComment on above:Order Comment: PER BASIN CLEANER AGUILA PT ADMITTED FROM ER. USE ER BLOOD-[id number] By: #### TSH3 wRFLX, LIPID, [id number] #### [place] [address] USAOccult Blood,Urine1+NormalNegativeThe [facility] Hospital Physician GroupComment on above:Order Comment: PER BASIN CLEANER AGUILA PT ADMITTED FROM ER. USE ER BLOOD-[id number] Comment: PERFORMED BY: [place] [address] PATHOLOGIST FORESTER AIDE HILDA LEE M.D.Performed By: #### TSH3 wRFLX, LIPID, [id number] #### [place] [address] USARBC,Mrvow9-6Qzekav3-9Ncr [facility]ician GroupComment on above:Order Comment: PER BASIN CLEANER AGUILA PT ADMITTED FROM ER. USE ER BLOOD-[id number] By: #### TSH3 wRFLX, LIPID, [id number] #### [place] [address] USASpecificy [place],Urine1.198Wlfcwq9.001-1.030The [facility] Physician GroupComment on above:Order Comment: PER BASIN CLEANER AGUILA PT ADMITTED FROM ER. USE ER BLOOD-[id number] By: #### TSH3 wRFLX, LIPID, [id number] #### [place] [address] USASquamous Epithelial Cell,Bwwey9-6Ymhokh0-1Eaz [facility] Physician GroupComment on above:Order Comment: PER BASIN CLEANER AGUILA PT ADMITTED FROM ER. USE ER BLOOD-[id number] By: #### TSH3 wRFLX, LIPID, [id number] #### [place] [address] USAUrobilinogen,Urine2 mg/dLNormalNormalThe [facility] Physician GroupComment on above:Order Comment: PER BASIN CLEANER AGUILA PT ADMITTED FROM ER. USE ER BLOOD-[id number] By: #### TSH3 wRFLX, LIPID, [id number] #### [place] [address] USAWBC,Swvvl4-1Wpncgt5-1Qfm [facility] Physician GroupComment on above:Order Comment: PER BASIN CLEANER AGUILA PT ADMITTED FROM ER. USE ER BLOOD-[id number] By: #### TSH3 wRFLX, LIPID, [id number] #### [place] [address] USADrug Screen,Urineon 23-58-3349Zvonlpnrnce Screen,Urine NegativeNormalNegativeHca Florida High[facility] Hospital Physician [place]oula HospitalComment on above:Performed By: #### GLULS #### Point of Care testing ,Barbiturate Screen,UrineNegativeNormalNegativeHca [facility] Comment on above:Performed By: #### GLULS #### Point of Care testing ,Benzodiazepines Screen,UrineNegativeNormalNegativeHca [facility] Comment on above:Performed By: #### GLULS #### Point of Care testing ,Cannabinoid Screen,UrineNegativeNormalNegativeHca Florida Highlands [facility] Group Comment on above:Result Comment: These are unconfirmed results and should not be used for legal purposes. Drug Cut-Off Concentration: AMPH 1000 ng/mL FRANK 200 ng/mL SAFIA 200 ng/mL COCM 300 ng/mL OP 300 ng/mL PCP 25 ng/mL THC 20 ng/mL PERFORMED BY: [place] [address] PATHOLOGIST FORESTER AIDE HILDA LEE M.D.Performed By: #### GLULS #### Point of Care testing ,Cocaine Screen,UrineNegativeNormalNegativeHca Florida High[facility] Hospital Physician [place]oula HospitalComment on above:Performed By: #### GLULS #### Point of Care testing ,Opiate Screen,UrineNegativeNormalNegativeHca Florida Highlands Hospital Physician GroupComment on above:Performed By: #### GLULS #### Point of Care testing ,Phencyclidine Screen,UrineNegativeNormalNegativeHca [facility] Comment on above:Performed By: #### GLULS #### Point of Care testing ,Eosinophils [#/volume] in Blood by Automated countOrdered By: Carmine Gutierrez on 65-88-9826Wmkbgiksyqf (Bld) [#/Vol]0.4 10*3/uLNormal0.0-0.45Green Cross HospitalComment on above:Performed By: #### GLULS #### Point of Care testing ,Eosinophils/100 leukocytes in Blood by Automated countOrdered By: Carmine Gutierrez on 48-65-7000Tvwqwvhidiw/100 WBC (Bld)7.8 %Normal.Green Cross HospitalComment on above:Performed By: #### GLULS #### Point of Care testing ,Epithelial cells.squamous [#/area] in Urine sediment by Automated countOrdered By: Carmnie Gutierrez on 55-65-8870Bmhzicgpty cells.squamous Auto (Urine sed) [#/Area]1-2 [HPF]0-2FWood County HospitalErythrocyte distribution width [Ratio] by Automated countOrdered By: Carmine Gutierrez on 05-16-2025 Erythrocyte distribution width (RBC) [Ratio]18.0 %High12.0-14.8Green Cross HospitalComment on above:Performed By: #### GLULS #### Point of Care testing ,Erythrocytes [#/area] in Urine sediment by Automated countOrdered By: Carmine Gutierrez on 98-66-8218OKQ Auto (Urine sed) [#/Area]5-9 [HPF]High0-4FWood County HospitalErythrocytes [#/volume] in Blood by Automated count Ordered By: Carmine Gutierrez on 54-68-0316UVF (Bld) [#/Vol]3.66 10*6/uLLow3.90-5.60 [facility] Cross HospitalComment on above:Performed By: #### GLULS #### Point of Care testing ,Ethanol [Mass/volume] in Serum or PlasmaOrdered By: Carmine Gutierrez on 05-16-2025 Ethanol [Mass/Vol]mg/dLNormalGreen Cross HospitalComment on above: Performed By: #### GLULS #### Point of Care testing ,Ethyl Alcohol Profileon 10-55-7191Mmrofei EthanolNot performedNoUNC Health Johnston Physician GroupComment on above:Result Comment: PERFORMED BY: [facility] [place] [address] PATHOLOGIST FORESTER AIDE HILDA LEE M.D.Performed By: #### GLULS #### Point of Care testing ,Glomerular filtration rate [Volume Rate/Area] in Serum, Plasma or Blood by CreatinineOrdered By: Carmine Gutierrez on 41-01-3922Zeygvycjhr filtration rate [Volume Rate/Area] in Serum, Plasma or Blood by Gxpnitjbhp70.534 mL/MinGreen Cross HospitalGlucose Poct Glucometerson 04-30-7822Mlprjha [Mass/Vol] 219 mg/dLWinter Haven Hospital Physician GroupComment on above:Result Comment: Random Glucose Reference Range is dependent on time and content of last meal. Glucose of more than 200 mg/dL in a nonstressed, ambulatory subject supports the diagnosis of Diabetes Mellitus. PERFORMED BY: [address] [place] [address] PATHOLOGIST FORESTER AIDE HILDA LEE M.D.Performed By: #### GLULS #### Point of Care testing ,Glucose [Mass/volume] in Serum or PlasmaOrdered By: Carmine Gutierrez on 05-16-2025 Glucose [Mass/Vol]161 mg/tNYhyb00-545XqspjwqmqGreen Cross HospitalComment on above:ADA recommended reference rangeRandom Glucose [...] by Test stripOrdered By: Carmine Gutierrez on 71-16-5900Epiyeqa Test strip (U) [Mass/Vol]200 mg/dLUC West Chester HospitalGranular casts [#/area] in Urine by Computer assisted method Ordered By: Carmine Gutierrez on 09-52-6895Qjgtybxl casts Computer assisted (U) [#/Area]5-9 [LPF][facility] God HospitalHematocrit [Volume Fraction] of Blood by Automated countOrdered By: Carmine Gutierrez on 19-78-9645Neksxdtowj (Bld) [Volume fraction]30.8 %Low38.8-50.0Green Cross HospitalComment on above:Performed By: #### GLULS #### Point of Care testing ,Hemoglobin Test strip Ql (U)Ordered By: Carmine Gutierrez on 37-90-4072Pwipoaubmy Ql (U)1+HighNegativeGreen Cross HospitalHemoglobin [Mass/volume] in BloodOrdered By: Carmine Gutierrez on 94-05-7398Hdgjncfids (Bld) [Mass/Vol]9.9 g/dL Low13.0-17.0Green Cross HospitalComment on above:Performed By: #### GLULS #### Point of Care testing ,Hyaline casts [#/area] in Urine sediment by Automated countOrdered By: Carmine Gutierrez on 02-82-2994Ygobehi casts Auto (Urine sed) [#/Area]0-8 [LPF]0-8Green Cross HospitalKetones [Presence] in Urine by Test stripOrdered By: Carmine Gutierrez on 27-14-2093Zrbohtk Ql (U)NegativeNormalNegHarrison Community HospitalComment on above:Order Comment: PER BASIN CLEANER AGUILA PT ADMITTED FROM ER. USE ER BLOOD-[id number] By: #### TSH3 wRFLX, LIPID, [id number] #### [facility] [address] [place] [id number] USALeukocyte esterase [Presence] in Urine by Test strip Ordered By: Carmine Gutierrez on 50-46-0734Yjmyzkdad esterase Test strip Ql (U) NegativeNormalNegHarrison Community HospitalComment on above:Order Comment: PER BASIN CLEANER AGUILA PT ADMITTED FROM ER. USE ER BLOOD-[id number] By: #### TSH3 wRFLX, LIPID, [id number] #### [facility] [address] [id number] USALeukocytes [#/area] in Urine sediment by Automated count Ordered By: Carmine Gutierrez on 60-32-5835DTE Auto (Urine sed) [#/Area]1-2 [HPF]0-4 [facility] Cross HospitalLeukocytes [#/volume] corrected for nucleated erythrocytes in Blood by Automated counOrdered By: Carmine Gutierrez on 31-19-8312JKA corrected for nucl RBC Auto (Bld) [#/Vol]5.7 10*3/uL4.1-10.5FWood County HospitalLeukocytes [#/volume] in Blood by Automated countOrdered By: Carmine Gutierrez on 94-65-5364VRZ (Bld) [#/Vol]5.7 10*3/uLNormal4.1-10.5FWood County HospitalComment on above:Performed By: #### GLULS #### Point of Care testing ,Lipid Panelon 09-04-1096Iturkaaouqp [Mass/Vol]158 mg/qHYjieqk552-615Kat [facility] Physician GroupComment on above:Order Comment: PER BASIN CLEANER AGUILA PT ADMITTED FROM ER. USE ER BLOOD-[id number] Comment: Chol less than 200 mg/dl low risk Chol 201-239 mg/dl borderline risk Chol 240 mg/dl and greater high riskPerformed By: #### TSH3 wRFLX, LIPID, [id number] #### [facility] [address] [place] [address] USACholesterol in HDL [Mass/Vol]32 mg/lOLapwyr00-79Xdr [facility] Physician GroupComment on above:Order Comment: PER BASIN CLEANER AGUILA PT ADMITTED FROM ER. USE ER BLOOD-[id number] Comment: HDL CHOL ATP-III CLASSIFICATION Cardiovascular Risk HDL > or equal to 60 mg/dL LOW HDL < 40 mg/dL HIGHPerformed By: #### TSH3 wRFLX, LIPID, [id number] #### [facility] [address] [place] [address] USACholesterol.total/Cholesterol in HDL [Mass ratio]4.9 {ratio}Normal<5.0The [facility] Physician GroupComment on above:Order Comment: PER BASIN CLEANER AGUILA PT ADMITTED FROM ER. USE ER BLOOD-[id number] By: #### TSH3 wRFLX, LIPID, [id number] #### [facility] [address] [place] [address] USALDL Cholesterol,Krsmmchbzz26 mg/dLNormal0-100[facility] Physician [place]oul[place] HospitalComment on above:Order Comment: PER BASIN CLEANER AGUILA PT ADMITTED FROM ER. USE ER BLOOD-[id number] Comment: LDL ATP III CLASSIFICATION LDL less than 100 mg/dL Optimal LDL 100-129 mg/dL Near or above optimal LDL 130-159 mg/dL Borderline high LDL 160-189 mg/dL High LDL greater than 189 mg/dL Very highPerformed By: #### TSH3 wRFLX, LIPID, [id number] #### [facility] [address] [place] [address] USATriglyceride w/Ejbfld357 mg/dLHigh0-149The [facility] Physician GroupComment on above:Order Comment: PER BASIN CLEANER AGUILA PT ADMITTED FROM ER. USE ER BLOOD-[id number] Comment: TRIG ATP III CLASSIFICATION TRIG less than 150 mg/dL Normal TRIG 150-199 mg/dL Borderline high TRIG 200-500 mg/dL High TRIG greater than 500 mg/dL Very high Standard traceable to the Center for Disease Conrtrol and Prevention (CDC) test method.Performed By: #### TSH3 wRFLX, LIPID, [id number] #### [place] [id number] USAVLDL VINVPNWVVXC31 mg/dLNormalThe [facility] Physician [place] HospitalComment on above:Order Comment: PER BASIN CLEANER AGUILA PT ADMITTED FROM ER. USE ER BLOOD-[id number] By: #### TSH3 wRFLX, LIPID, [id number] #### [place] [id number] USALymphocytes [#/volume] in Blood by Automated countOrdered By: Carmine Gutierrez on 77-39-0862Kyyijtaldfp (Bld) [#/Vol]1.5 10*3/uLNormal1.00-4.8 [facility] Cross HospitalComment on above:Performed By: #### GLULS #### Point of Care testing ,Lymphocytes/100 leukocytes in Blood by Automated countOrdered By: Carmine Gutierrez on 77-75-1018Ibupilmfmws/100 WBC (Bld)26.7 %Normal.[facility] Regional Medical CenterComment on above:Performed By: #### GLULS #### Point of Care testing ,MCH [Entitic mass] by Automated countOrdered By: Carmine Gutierrez on 64-18-3319YKV (RBC) [Entitic mass]27.2 pgLow27.5-35.2FWood County HospitalComment on above:Performed By: #### GLULS #### Point of Care testing ,MCHC Auto (RBC) [Mass/Vol]Ordered By: Carmine Gutierrez on 94-82-9258YLSK (RBC) [Mass/Vol]32.3 g/dLLow32.5-35.6FWood County HospitalMCV [Entitic volume] by Automated countOrdered By: Carmine Gutierrez on 53-93-1175UPB (RBC) [Entitic vol]84.1 jYPcedqv38.5-101Green Cross HospitalComment on above:Performed By: #### GLULS #### Point of Care testing ,Monocyte distribution width [Entitic volume] in Blood by AutomatedOrdered By: Carmine Gutierrez on 81-66-9368Qdwxdhbo distribution width Auto (Bld) [Entitic vol] 20.40 %High0.00-20.00[facility] Cross HospitalComment on above:For adults in ED, MDW > 20.0 may be associated with a higher risk of sepsis during the first 12 hrs of hospital admissionMonocytes [#/volume] in Blood by Automated countOrdered By: Carmine Gutierrez on 73-87-3616Ilgppllrq (Bld) [#/Vol]0.6 10*3/uL Normal0.0-0.8[facility] Cross HospitalComment on above:Performed By: #### GLULS #### Point of Care testing ,Monocytes/100 leukocytes in Blood by Automated countOrdered By: Carmine Gutierrez on 12-63-9169Ltgzmqrvc/100 WBC (Bld)10.9 %Normal.[facility] Comment on above:Performed By: #### GLULS #### Point of Care testing ,Mucus [Presence] in Urine by AutomatedOrdered By: Carmine Gutierrez on 05-16-2025 Mucus Auto Ql (U)Rare [LPF][facility] Medical CenterNeutrophils [#/volume] in Blood by Automated countOrdered By: Carmine Gutierrez on 05-16-2025 Neutrophils (Bld) [#/Vol]3.1 10*3/uLNormal1.8-7.7FWood County HospitalComment on above:Performed By: #### GLULS #### Point of Care testing ,Neutrophils/100 leukocytes in Blood by Automated countOrdered By: Carmine Gutierrez on 85-88-5024Llgrvrlzjrf/100 WBC (Bld)53.2 %Normal.[facility] Cross HospitalComment on above:Performed By: #### GLULS #### Point of Care testing ,Nitrite Test strip Ql (U)Ordered By: Carmine Gutierrez on 21-18-2684Qyscezl Ql (U) NegativeNegHarrison Community HospitalNo Panel InformationOrdered By: Carmine Gutierrez on 56-41-6081Zajlztvn Creatinine Clearance (Chem69.78Green Cross HospitalNucleated erythrocytes [Presence] in Blood by Automated countOrdered By: Carmine Gutierrez on 88-61-0870Gedxgodco RBC Auto Ql (Bld)0.0 /100{WBC}0-0.5FWood County HospitalOpiates [Presence] in Urine by Screen methodOrdered By: Carmine Gutierrez on 42-11-4169Xyloseu Screen Ql (U)Negative NegativeGreen Cross HospitalPhencyclidine Screen Ql (U)Ordered By: Carmine Gutierrez on 00-34-7401Ivqornhlyynva Ql (U)NegativeNegHarrison Community HospitalPlatelet mean volume [Entitic volume] in Blood by Automated count Ordered By: Carmine Gutierrez on 22-70-6752Dmugxrik mean volume (Bld) [Entitic vol] 7.4 fLNormal6.6-10.1FWood County HospitalComment on above:Performed By: #### GLULS #### Point of Care testing ,Platelets [#/volume] in Blood by Automated countOrdered By: Carmine Gutierrez on 11-77-3943Albzigywc (Bld) [#/Vol]230 10*3/xEOgxvvb515-922OhogdzhjuGreen Cross HospitalComment on above:Performed By: #### GLULS #### Point of Care testing ,Potassium [Moles/volume] in Serum or PlasmaOrdered By: Carmine Gutierrez on 22-55-8221Fgscbgxvf [Moles/Vol]3.5 mmol/LNormal3.5-5.1FWood County HospitalComment on above:Performed By: #### GLULS #### Point of Care testing ,Protein [Mass/volume] in Serum or PlasmaOrdered By: Carmine Gutierrez on 05-16-2025 Protein [Mass/Vol]7.5 g/dLNormal6.4-8.9Green Cross HospitalComment on above:Performed By: #### GLULS #### Point of Care testing ,Protein [Mass/volume] in Urine by Test stripOrdered By: Carmine Gutierrez on 05-35-6381Xohjnyd (U) [Mass/Vol]30 mg/dLNormalNegativeGreen Cross HospitalComment on above:Order Comment: PER BASIN CLEANER AGUILA PT ADMITTED FROM ER. USE ER BLOOD-[id number] By: #### TSH3 wRFLX, LIPID, [id number] #### [place] [address] USASerum globulin measurement by calculation (mass/volume) Ordered By: Carmine Gutierrez on 22-68-8793Vmesxlql (S) [Mass/Vol]4.2 g/dLNoal [facility] Cross HospitalComment on above:Performed By: #### GLULS #### Point of Care testing ,Serum or plasma albumin/globulin mass ratioOrdered By: Carmine Gutierrez on 61-16-9832Keurfib/Globulin [Mass ratio]0.8 {ratio}NormalGreen Cross HospitalComment on above:Performed By: #### GLULS #### Point of Care testing ,Serum or plasma anion gap determinationOrdered By: Carmine Gutierrez on 05-16-2025 Anion gap [Moles/Vol]10.1 mmol/LNormal6.0-15.0[facility] Comment on above:Performed By: #### GLULS #### Point of Care testing ,Serum or plasma ethanol measurement (mass/volume)Ordered By: Carmine Gutierrez on 92-58-7547Ikqjzeo [Mass/Vol]TNSheltering Arms HospitalComment on above:Test not performedSodium [Moles/volume] in Serum or PlasmaOrdered By: Carmine Gutierrez on 21-42-5238Asywtt [Moles/Vol]137 mmol/NQewvkk671-505UmirmbthmGreen Cross HospitalComment on above:Performed By: #### GLULS #### Point of Care testing ,Specific gravity Test strip (U) [Rel density]Ordered By: Carmine Gutierrez on 45-32-1583Zsgngtux gravity (U) [Rel density]1.0221.001-1.030Green Cross HospitalThyroid Stim Hormone w/Rflxon 02-53-9377Gqqhtol Stim Hormone w/Rflx5.00 u[iU]/mLNormal0.45-5.33The [facility] Physician GroupComment on above: Order Comment: PER BASIN CLEANER AGUILA PT ADMITTED FROM ER. USE ER BLOOD-[id number] By: #### TSH3 wRFLX, LIPID, [id number] #### [place] [address] USAThyrotropin [Units/volume] in Serum or PlasmaOrdered By: Carmine Gutierrez on 03-16-6698TSQ Qn4.87 m[IU]/LNormal0.45-5.33Green Cross HospitalComment on above:Result Comment: PERFORMED BY: [place] [address] PATHOLOGIST FORESTER AIDE HILDA LEE M.D.Performed By: #### GLULS #### Point of Care testing ,Urea nitrogen [Mass/volume] in Serum or PlasmaOrdered By: Carmine Gutierrez on 99-23-6803Okqb nitrogen [Mass/Vol]18 mg/dLNormal7-25Green Cross HospitalComment on above:Performed By: #### GLULS #### Point of Care testing ,Urobilinogen Test strip (U) [Mass/Vol]Ordered By: Carmine Gutierrez on 05-16-2025 Urobilinogen (U) [Mass/Vol]2 mg/dLHighNoBarney Children's Medical Center Vitamin D 25 Hydroxy Totalon 72-94-0969Sejvyvz D 25 Hydroxy Total8.8 ng/mLLow 30-100The [facility] Physician GroupComment on above:Order Comment: PER BASIN CLEANER AGUILA PT ADMITTED FROM ER. USE ER BLOOD-[id number] Comment: VITAMIN D STATUS 25(OH)VITAMIN D RANGE (ng/mL) Deficient <20 Insufficient 20 to <30 Sufficient 30 to 100 Reference: Boaz MF,[place] NC, [place] GASTELUM, et al. Evaluation,treatment, and prevention of vitamin D deficiency; an Endocrine Society clinical practice guideline. JCEM. 2010; 96(7):1911-30. PERFORMED BY: [place] [address] PATHOLOGIST FORESTER AIDE HILDA LEE M.D.Performed By: #### TSH3 wRFLX, LIPID, [id number] #### [facility] [address] [place] [address] USApH of Urine by Test stripOrdered By: Carmine Gutierrez on 73-09-6723nC (U)5.5 [pH]Normal5.0-9.0[facility] Cross HospitalComment on above:Order Comment: PER BASIN CLEANER AGUILA PT ADMITTED FROM ER. USE ER BLOOD-[id number] By: #### TSH3 wRFLX, LIPID, [id number] #### [facility] [address] [place] [address] USAAbstracton [id number] Evelin Patterson 1955 M Date Provider Department Center 05/13/2025 [facility] Family History Problem Relation Age of Onset No Known Problems Mother No Known Problems Father Family Status - Relation Status Age at Mother FatherNormalUniversity of Dallas Regional Medical CenterOptical coherence tomography study reporton 33-97-5762VKIT HealthcareNONV HealthcareIntravitreal Injection, Pharmacologic Agent - OD - Right Eyeon 64-58-0319BTJR HealthcareLeft eye Ophthalmologic treatmenton 79-19-8921THCB HealthcareNo Panel Informationon 26-22-6804Lzlzikbcp Study observation (narrative)NOMS HealthcareUrine Cultureon 68-83-6251Hqznggtn identified Cx Nom (U)20,000 colonies/ml mixed bacterial skin contaminants 2 Days PERFORMED BY: [place] [address] PATHOLOGIST FORESTER AIDE HILDA LEE M.D.[facility] Physician GroupComment on above: Performed By: #### CUU #### [facility] [address] [place] [address] USAUrine cultureOrdered By: Arline Lazar on 03-25-2025 Bacteria identified Cx Nom (U)2 DaysGreen Cross Hospital Intravitreal Injection, Pharmacologic Agent - OD - Right Eyeon 34-96-5158PQQI HealthcareRadiology Study observation (narrative)[facility] HealthcareOptical coherence tomography study reporton 58-70-7228WXOXEllis Fischel Cancer Center Healthcare Radiology Study observation (narrative)NOMS HealthcareCT lumbar spine w conon 91-61-7600SD lumbar spine w [facility] [place] [address] [place] [address] Interventional Radiology Rpt Signed Patient: Evelin Patterson MR#: [id number] 005 : 1955 Acct:[id number] Age/Sex: 69 / M ADM Date: 02/25/25 Loc: XD Room: Type: [facility] Attending Dr: Margot Singh MD Copies to: Margot Titus MD Ordering Provider: Margot Titus MD Date of Service: 02/25/25 IR/IR myelogram spine lumbosacral: S22.07OD, M51.372, M43.15 ([id number]) CT/CT lumbar spine w con: S22.07OD, M51.372, [...] Tinajero M.D. 02/25/2025 1:51 PM Dictation Location: [place] [address] Transcribed By: [facility] 02/25/25 6061 Dictated By: Michael Tinajero DO 02/25/25 1335 Signed By: 02/25/25 1358Winter [facility] Physician GroupINR in Platelet poor plasma by Coagulation assayOrdered By: Arline Lazar on 91-04-2571MOL Coag (PPP) [Relative time]1.0 {INR}NormalGreen Cross HospitalComment on above:INR Therapeutic Range A) Pre- [...] heart valves: 3 - 4.5 PERFORMED BY: [place] [address] PATHOLOGIST FORESTER AIDE HILDA LEE M.D.Performed By: #### PT, PLT #### [place] [address] USAInterventional radiology reportOrdered By: Michael Tinajero on 01-98-7026Ybuem reportPEOPLES HOSPITAL [place] [address] [place] [address] Interventional Radiology Rpt Signed Patient: Evelin Patterson MR#: [id number] : 1955 Acct:[id number] Age/Sex: 69 / M ADM Date: 5 Loc: XD Room: Type: [facility] Attending Dr: Margot Singh MD Copies to: Margot Titus MD~ Ordering Provider: Margot Titus MD Date of Service: 02/25/25 IR/IR myelogram spine lumbosacral: S22.07OD, M51.372,M43.15 ([id number]) CT/CT lumbar spine w con: S22.07OD, M51.372, [...] 2 to 3 years. Weakness. History of H45cdxlqrijthb fracture. FINDINGS: Lumbar lordosis is maintained. No [...] Tinajero M.D. 02/25/2025 1:51 PM Dictation Location: [place] [address] Transcribed By: [facility] 02/25/25 1351 Dictated By: Michael Tinajero DO 02/25/25 1335 Signed By: 02/25/25 1351 Green Cross HospitalPlatelets [#/volume] in Blood by Automated countOrdered By: Arline Lazar on 73-79-5976Xnncxqtjj (Bld) [#/Vol]228 10*3/uL Nxmzdx926-125ElzveljsdGreen Cross HospitalComment on above:Result Comment: PERFORMED BY: [place] [address] PATHOLOGIST FORESTER AIDE HILDA LEE M.D.Performed By: #### PT, PLT #### [facility] [address] [place], [place] [id number] USAProthrombin time (PT)Ordered By: Arline Lazar on 23-80-2771SA Coag (PPP) [Time]11.2 sNormal9.0-12.9Green Cross HospitalComment on above:A hematocrit value greater than 55% may lead to inaccurate results in coagulation testing. Patientshaving hematocrit values >55% require a special collection tube for coagulation studies. Please contact the laboratory at [phone] for redraw instructions.Result Comment: A hematocrit value greater than 55% may lead to inaccurate results in coagulation testing. Patients having hematocrit values >55% require a special collection tube for coagulation studies. Please contact the laboratory at [phone] for redraw instructions.Performed By: #### PT, PLT #### [facility] [address] [place] [address] USAOrders Onlyon 25-14-7369Qtsyus [id number] Evelin Patterson 1955 M Date Provider Department [place] 12/29/2024 [id number], HISTORICAL CARD Nery [place] Family History Problem Relation Age of Onset No Known Problems Mother No Known Problems Father Family Status - Relation Status Age at Mother FatherNormalUniversity of Dallas Regional Medical Center36on [id number]. [place] made aware yesterday that patient had lipid panel in October 2024. He said patient does not need repeat labs at this time. Patient made aware.Normal [place] [address]on [id number]/p heart cath on 11/18/2024, Dr. Hays would like lipid/LFT's on patient prior to his apt in January 2025. LM for patient to return my call. Orders put in and faxed to [facility].NormalRegency Hospital [facility] [id number] Attestation signed by Barb Hays MD at 11/18/2024 12:05 PM Barb Hays MD, MPH, [facility], [facility], [facility] Interventional Cardiology Pager Email: [email or web address] Patient: Evelin Adrian Yesenia Procedure Information Date/Time: 11/18/24 1145 Procedure: Coronary angiography - VIANCAJ Location: [facility] SHOW HOST 2 BIPLANE / [facility] (Cath) Providers: Barb Hays MD [...] products. Plan discussed with attending. Additional Equipment RequestsNormalUniversFort Hamilton Hospital [id number] Attestation with edits by Barb Hays MD at 11/18/2024 12:11 PM Barb Hays MD, MPH, [facility], [facility], [facility] Interventional Cardiology Pager Email: [email or web address] H&P reviewed. The patient was examined and there are no changes to the H&P. Proceed with RHC and CORS for dyspnea, unstable angina. Saul Diego MD PGY-5 Lead Installer [facility] Pager # [phone]-Patterson Medical CenterNURSNOTEon [id number] educated pt on d/c instructions. This included: [...] wheeled off of unit with all of belongings.NormalUnSalem Regional Medical CenterOrders Onlyon 65-15-8060Kiqaij [id number] Evelin Patterson 1955 M Date Provider Department Center 11/10/2024 MARGARITA TURNER [facility] VAS LAB [facility] HeartVAS Family History Problem Relation Age of Onset No Known Problems Mother No Known Problems Father Family Status - Relation Status Age at Mother FatherNormalUniWright-Patterson Medical Center36on [id number] message script sent into [employer] in [facility]36 Patient states since he started Carvedilol. He has been taking for 2 to 3 days, patient states he's very fatigued, having hallucinations. Would you like to make a change, or recommendations. Please advise.Premier HealthHPon 50-24-3199YASAUYWMOZ CLINIC Cardiology Clinic Note Chief Complaint: New patient here to re-establish care. He had heart cath back in 2009 at [facility]. He was diagnosed with afib in [...] can be completed. Barb Hays MD, MPH, [facility], [facility], [facility] Interventional Cardiology Pager Email: [email or web address] ClevelandalUniWright-Patterson Medical CenterOffice Visiton 76-69-3791Kdrkji-up [id number] Evelin Patterson 1955 M Date Provider Department Center 10/28/2024 271-BARB HAYS [facility] Family History Problem Relation Age of Onset No Known Problems Mother No Known Problems Father Family Status - Relation Status Age at Mother Father Level of Service:63644 OR OFFICE/OUTPATIENT [facility] 60 MINUTESCorey HospitalOrders Onlyon 35-67-3927Sdxsqf [id number] Patterson,Evelin Adrian 1955 M Date Provider Department Center 10/28/2024 JADEN HONG [facility] Family History Problem Relation Age of Onset No Known Problems Mother No Known Problems Father Family Status - Relation Status Age at Mother FatherNoalUThe Jewish HospitalProvider Letteron 06-14-2024 Provider LetterProvider Letter June 14, 20[address] [place] [id number] : 1955 Dear Evelin , We have been trying to reach you with no success. It is important that you return our call upon receiving this letter. Also, at the time of your call, please provide us with your current information. Thank you for your prompt attention to this matter. Sincerely, Dr. Javid Haynes MD General SurgeryThe Christ HospitalCBC AUTO DIFFon 21-40-4188HPKS # 0.1 103/ulNormal0.0-0.1The [facility] Medical CenterComment on above:Performed By: #### TSH, BMP #### [facility] [address] [place] [address] [address] Ladan DiehlBasophils/100 WBC (Bld)1.2 %Normal0.2-2.0The [facility] Comment on above:Performed By: #### TSH, BMP #### [facility] [address] [place] [address] Dr. Ladan Schmidt #0.4 103/ulNormal0.0-0.7The [facility] Medical CenterComment on above: Performed By: #### TSH, BMP #### [facility] [address] [place] [address] Dr. Ladan Josephosinophils/100 WBC (Bld)4.9 %Normal0.9-7.0The [facility] Comment on above:Performed By: #### TSH, BMP #### [facility] [address] [place] [address] Dr. Ladan Ayersthrocyte distribution width (RBC) [Ratio]14.8 %Xmyasx13.0-15.0 The [facility] Medical CenterComment on above:Performed By: #### TSH, BMP #### [facility] [address] [place] [address] Dr. Ladan DiehlHematocrit (Bld) [Volume fraction]36.7 %Critically low42.0-54.0 The [facility] Medical CenterComment on above:Performed By: #### TSH, BMP #### [facility] [address] [place] [address] Dr. Ladan DiehlHemoglobin (Bld) [Mass/Vol]12.0 g/dLCritically low14.0-18.0The [facility] CenterComment on above:Performed By: #### TSH, BMP #### [facility] [address] [place] [address] Dr. Ladan Partida #0.01 10e3/ulNormal0.00-0.03The [facility] Medical CenterComment on above:Performed By: #### TSH, BMP #### [facility] [address] [place] [address] Dr. Ladan Partida %0.1 %Normal0.0-0.5The [facility] Medical CenterComment on above: Performed By: #### TSH, BMP #### [facility] [address] [place] [address] Dr. Ladan Moser #2.0 103/ulNormal1.2-3.8The [facility] Medical CenterComment on above:Performed By: #### TSH, BMP #### [facility] [address] [place] [address] Dr. Ladan Rogershocytes/100 WBC (Bld)27.1 %Uszohg27.5-60.0The [facility] CenterComment on above:Performed By: #### TSH, BMP #### [facility] [address] [place] [address] Dr. Ladan Vyas DIFF REQNONormalThe [facility] Medical CenterComment on above: Performed By: #### TSH, BMP #### [facility] [address] [place] [address] Dr. Ladan Gibbs (RBC) [Entitic mass]29.6 ssJqakrj38.9-34.0The [facility] CenterComment on above:Performed By: #### TSH, BMP #### [facility] [address] [place] [address] Dr. Ladan Gibbs (RBC) [Mass/Vol]32.7 g/hLXitplw67.9-35.2The [facility] CenterComment on above:Performed By: #### TSH, BMP #### [facility] [address] [place] [address] Dr. Ladan Gibbs (RBC) [Entitic vol]90.6 hBJmdwzm38.0-94.0The [facility] CenterComment on above:Performed By: #### TSH, BMP #### [facility] [address] [place] [address] Dr. Ladan Barone #0.8 103/ulNormal0.3-0.8The [facility] CenterComment on above:Performed By: #### TSH, BMP #### [facility] [address] [place] [address] Dr. Ladan Stanleyocytes/100 WBC (Bld)10.4 %Normal1.7-12.0The [facility] Comment on above:Performed By: #### TSH, BMP #### [facility] [address] [place] [address] [address] Ladan Shrestha #4.2 103/ulNormal1.4-6.5The Select Medical Specialty Hospital - Akronment on above:Performed By: #### TSH, BMP #### [facility] [address] [place] [address] Dr. Ladan Humphreyutrophils/100 WBC (Bld)56.3 %Zlsmqi23.0-75.0The [facility] CenterComment on above:Performed By: #### TSH, BMP #### [facility] [address] [place] [address] Dr. Ladan Tejadalet mean volume (Bld) [Entitic vol]9.9 fLNormal9.5-13.5The [facility] CenterComment on above:Performed By: #### TSH, BMP #### [facility] [address] [place] [address] Dr. Ladan DiehlPLT227 103/bmCkskjm653-287Fpk [facility] CenterComment on above: Performed By: #### TSH, BMP #### [facility] [address] [place] [address] Dr. Ladan DiehlRBC4.05 106/ulCritically low4.70-6.10The [facility] on above:Performed By: #### TSH, BMP #### [facility] [address] [place] [address] Dr. Ladan DiehlWBC7.4 103/ulNormal4.0-11.0The [facility] on above: Performed By: #### TSH, BMP #### [facility] [address] [place] [address] Dr. Ladan Correa T3on 80-18-2951ILKP T32.07 pg/mlLCritically low2.18-3.98The [facility] CenterComment on above:Performed By: #### TSH, BMP #### [facility] [address] [place] [address] Dr. Ladan Correa T4on 91-37-3792Xjvs T4 [Mass/Vol]1.14 ng/dLNormal0.76-1.46 [facility] Medical CenterComaspirus iron river hospital on above:Performed By: #### TSH, BMP #### [facility] [address] [place] [address] [address] Ladan DiehlGLYCOHEMOGLOBIN A1Con 48-13-7339YFD RECOMMENDATIONSEE BELOWNormal [facility] Medical CenterComment on above:Result Comment: ADA RECOMMENDED LIMIT 4.0 - 6.0 ADA THERAPEUTIC TARGET < 7.0 ACTION SUGGESTED > 7.0Performed By: #### TSH, BMP #### [facility] [address] [place] [address] Dr. Ladan DiehlGlucose [Mass/Vol]134 mg/dLNoThe University of [facility] Medical CenterComment on above:Performed By: #### TSH, BMP #### [facility] [address] [place] [address] Dr. Ladan DiehlHbA1c (Bld) [Mass fraction]6.3 %Critically high4.5-6.2[facility] Medical CenterComment on above:Performed By: #### TSH, BMP #### [facility] [address] [place] [address] Dr. Ladan DiehlLIPID PROFILEon 20-67-6473RRVL-HDL RATIO NORMSEE [facility] Surgical HospitalComment on above:Result Comment: 3.3 - 4.4 LOW RISK 4.4 - 7.1 AVERAGE RISK 7.1 - 11.0 MODERATE RISK >11.0 HIGH RISKPerformed By: #### TSH, BMP #### [facility] [address] [place] [address] Dr. Ladan DiehlCholesterol [Mass/Vol]118 mg/dLNormal<=200The [facility] Comment on above:Performed By: #### TSH, BMP #### [facility] [address] [place] [address] Dr. Ladan DiehlCholesterol in HDL [Mass/Vol]43 mg/lEEavbrz53-22Zho [facility] CenterComment on above:Performed By: #### TSH, BMP #### [facility] [address] [place] [address] Dr. Ladan Mishraesterol in LDL [Mass/Vol]48.8 mg/dLDoctors HospitalComment on above:Performed By: #### TSH, BMP #### [facility] [address] [place] [address] Dr. Ladan Romero.total/Cholesterol in HDL [Mass ratio]2.7 {ratio} NormalThe [facility] Medical CenterComment on above:Performed By: #### TSH, BMP #### [facility] [address] [place] [address] Dr. Ladan Gant NORMAL> or = 60 mg/dl - LOW CARDIOVASCULAR RISK <40 mg/dl - HIGH CARDIOVASCULAR RISKDoctors HospitalComment on above:Performed By: #### TSH, BMP #### [facility] [address] [place] [address] Dr. Ladan Leiva CALC NORMALSEE BELOWDoctors HospitalComment on above:Result Comment: <100 mg/dl OPTIMAL 100 - 129 mg/dl NEAR OR ABOVE OPTIMAL 130 - 159 mg/dl BORDERLINE HIGH 160 - 189 mg/dl HIGH >190 mg/dl VERY HIGH Performed By: #### TSH, BMP #### [facility] [address] [place] [address] Dr. Ladan DiehlTriglyceride [Mass/Vol]131 mg/dLNormal<=150[facility] Comment on above:Performed By: #### TSH, BMP #### [facility] [address] [place] [address] Dr. Ladan ManriqueLDL CALC26.2 mg/dLNoThe University of [facility]edo Medical CenterComment on above: Performed By: #### TSH, BMP #### [facility] [address] [place] [address] Dr. Ladan Varma PROFILEon 66-68-4212Rflslxi [Mass/Vol]2.7 g/dLCritically low3.4-5.0The [facility] CenterComment on above:Performed By: #### TSH, BMP #### [facility] [address] [place] [address] Dr. Ladan DiehlAlbumin/Globulin [Mass ratio]0.4 {ratio}NormalThe [facility] Medical CenterComment on above:Performed By: #### TSH, BMP #### [facility] [address] [place] [address] [address] Ladan MontañoP [Catalytic activity/Vol]154 U/LCritically xcnz14-662Frw [facility] CenterComment on above:Performed By: #### TSH, BMP #### [facility] [address] [place] [address] [address] Ladan Gregg [Catalytic activity/Vol]25 U/YFbxukp63-78Mpj [facility] CenterComment on above:Performed By: #### TSH, BMP #### [facility] [address] [place] [address] Dr. Ladan DiehlAST [Catalytic activity/Vol]38 U/LCritically ylmp56-34Lgc [facility] CenterComment on above:Performed By: #### TSH, BMP #### [facility] [address] [place] [address] Dr. Ladan TrejoI, CONJUGATED0.2 mg/dLNormal0.0-0.2The [facility] Comment on above:Performed By: #### TSH, BMP #### [facility] [address] [place] [address] Dr. Ladan Trejoirubin [Mass/Vol]0.8 mg/dLNormal0.2-1.0The [facility] Comment on above:Performed By: #### TSH, BMP #### [facility] [address] [place] [address] Dr. Ladan DiehlGlobulin (S) [Mass/Vol]6.2 g/dLNormalThe [facility] CenterComment on above:Performed By: #### TSH, BMP #### [facility] [address] [place] [address] Dr. Ladan DiehlProtein [Mass/Vol]8.9 g/dLCritically high6.4-8.2The [facility] CenterComment on above:Performed By: #### TSH, BMP #### [facility] [address] [place] [address] [address] Ladan MauricioALBUMIN, RAND URon 23-40-0760mQXR98.4 mg/dLNormal<=30.0The [facility] CenterComment on above:Performed By: #### TSH, BMP #### [facility] [address] [place] [address] [address] Ladan DiehlPROF CHEM 8 (BAS METB)on 43-76-1549Tuutf gap [Moles/Vol]10.7 mmol/LNormalThe [facility] CenterComment on above:Performed By: #### TSH, BMP #### [facility] [address] [place] [address] Dr. Ladan DiehlCalcium [Mass/Vol]9.0 mg/dLNormal8.5-10.1[facility] Comment on above:Performed By: #### TSH, BMP #### [facility] [address] [place] [address] Dr. Ladan DiehlChloride [Moles/Vol]103 mmol/AIcfduv63-771Zqh [facility] Comment on above:Performed By: #### TSH, BMP #### [facility] [address] [place] [address] Dr. Ladan DiehlCO2 [Moles/Vol]27.5 mmol/PQotmlh38.0-32.0The [facility] Comment on above:Performed By: #### TSH, BMP #### [facility] [address] [place] [address] Dr. Ladan DiehlCreatinine [Mass/Vol]1.29 mg/dLNormal0.70-1.30The [facility] CenterComment on above:Performed By: #### TSH, BMP #### [facility] [address] [place] [address] Dr. Pickering ChangEGFR-AF IRAQI>60Normal>=60The [facility] CenterComment on above:Performed By: #### TSH, BMP #### [facility] [address] [place] [address] Dr. Ladan JosephGFR-NON AF PKDGSWJV01 mL/min/1.63r6Pciklatlxr low>=60The [facility] CenterComment on above:Performed By: #### TSH, BMP #### [facility] [address] [place] [address] [address] Ladan DiehlGlucose [Mass/Vol]108 mg/dLCritically opzs51-139Vyy [facility] CenterComment on above:Performed By: #### TSH, BMP #### [facility] [address] [place] [address] [address] Ladan DiehlPotassium [Moles/Vol]4.2 mmol/LNormal3.5-5.1[facility] Comment on above:Performed By: #### TSH, BMP #### [facility] [address] [place] [address] [address] Ladan DiehlSodium [Moles/Vol]137 mmol/QEgtsiw322-983ZhvCoshocton Regional Medical Center Comment on above:Performed By: #### TSH, BMP #### [facility] [address] [place] [address] [address] Ladan DiehlUrea nitrogen [Mass/Vol]12.0 mg/dLNormal7.0-18.0The [facility] CenterComment on above:Performed By: #### TSH, BMP #### [facility] [address] [place] [address] Dr. Ladan Wilson nitrogen/Creatinine [Mass ratio]9.3 mg/mgNormalThe [facility] CenterComment on above:Performed By: #### TSH, BMP #### [facility] [address] [place] [address] Dr. Ladan Quiles 63-11-3488JJO0.668 uIU/mLCritically high0.358-3.740The [facility] CenterComment on above:Performed By: #### TSH, BMP #### [facility] [address] [place] [address] Dr. Ladan DiehlGLYCOHEMOGLOBIN A1Con 84-07-7254AWB RECOMMENDATIONSEE BELOWNormal The [facility] Medical CenterComment on above:Result Comment: ADA RECOMMENDED LIMIT 4.0 - 6.0 ADA THERAPEUTIC TARGET < 7.0 ACTION SUGGESTED > 7.0Performed By: #### A1C #### [facility] [address] [address] [address] Ladan DiehlGlucose [Mass/Vol]140 mg/dLNoThe University of [facility]edo Medical CenterComment on above:Performed By: #### A1C #### [facility] [address] [place], [place] [address] Dr. Ladan DiehlHbA1c (Bld) [Mass fraction]6.5 %Critically high4.5-6.2The [facility] CenterComment on above:Performed By: #### A1C #### [facility] [address] [address] [address] Ladan DiehlCT CSPINE WO CONon 35-36-3866AC CSPINE WO CONEXAMINATION: CT CSPINE WO CON [...] Electronically authenticated by: CAROL YIP Date: 2022-05-17 13:25NoThe University of [facility] Medical CenterCT HEAD WO CONon 37-89-0442DK HEAD WO CONEXAMINATION: CT HEAD WO CON [...] Electronically authenticated by: CAROL YIP Date: 2022-05-17 13:07Doctors HospitalXR CHEST 1 [place] 52-59-8261NU CHEST 1 VPORTABLE CHEST X-RAY. INDICATION: Chest pain. COMPARISON: 01/18/2022 TECHNIQUE: Single AP portable chest radiograph. FINDINGS: TUBES AND LINES: None. LUNGS: Hyperexpanded lungs. Minimal left basilar opacities. PLEURA: Questionable trace left effusion. HEART AND MEDIASTINUM: Within normal limits for portable technique. OSSEOUS STRUCTURES: No acute abnormality. IMPRESSION: Minimal left basilar opacities probably atelectasis. Electronically authenticated by: ABBIE AMBROCIO Date: 2022-05-17 12:53Doctors HospitalProgress Noteson 12-19-3669Opabstmoognob Authentication Interface Message TextEMERGENCY TRIAGE, TREAT AND TRANSPORT (ET3) DOCUMENTATION OF TELEHEALTH VISIT Date / Time: 05/01/2022599 Name: Evelin Patterson : 1955 SSN: [id number] EMS Agency: [facility] [x] Verbal consent obtained [...] Same ET3 Encounter Completed by: Yuri Kramer [facility], [place], Operated By [employer] [employer]Ign[employer] System Activated partial thromboplastin time (aPTT) in platelet poor plasma by coagulation aOrdered By: Ramesh Byrd on 29-26-8239cKJC Coag (PPP) [Time] 24.8 s25.1-36.5FWood County HospitalAutomated erythrocytes count in urine sediment (number/area)Ordered By: Ramesh Byrd on 77-80-4431EAG Auto (Urine sed) [#/Area]20-49 [HPF]0-4FWood County HospitalAutomated leukocytes count in urine sediment (number/area)Ordered By: Ramesh Byrd on 39-47-0743CTQ Auto (Urine sed) [#/Area]1-2 [HPF]0-4FWood County HospitalBasophils Auto (Bld) [#/Vol]Ordered By: Ramesh Byrd on 04-12-2022 Basophils (Bld) [#/Vol]0.0 10*3/uL0.0-0.2FWood County Hospital Basophils/100 WBC Auto (Bld)Ordered By: Ramesh Byrd on 04-12-2022 Basophils/100 WBC (Bld)0.6 %.Green Cross HospitalBilirubin Test strip Ql (U)Ordered By: Ramesh Byrd on 98-95-3010Mtuqkakoc Ql (U)Negative NegativeGreen Cross HospitalBlood hemoglobin measurement (mass/volume)Ordered By: Ramesh Byrd on 55-69-0014Kadpeentqe (Bld) [Mass/Vol]12.2 g/dL13.0-17.0Green Cross HospitalBlood leukocytes automated count (number/volume)Ordered By: Ramesh Byrd on 18-73-5403LSO (Bld) [#/Vol]6.4 10*3/uL4.5-11.0Green Cross HospitalBody fluid albumin measurement (mass/volume)Ordered By: Ramesh Byrd on 04-12-2022 Albumin (Body fld) [Mass/Vol]2.3 g/dL3.2-5.5FWood [facility] Hospital Color Auto (U)Ordered By: Ramesh Byrd on 78-35-6483Vetdp (U)YellowYellow [facility] HospitalCreatinine and Glomerular filtration rate.predicted panel (S/P/Bld)Ordered By: Ramesh Byrd on 04-12-2022 Creatinine [Mass/Vol]1.14 mg/dL0.64-1.27[facility] Eosinophils Auto (Bld) [#/Vol]Ordered By: Ramesh Byrd on 04-12-2022 Eosinophils (Bld) [#/Vol]0.2 10*3/uL0.0-0.45[facility] Eosinophils/100 WBC Auto (Bld)Ordered By: Ramesh Byrd on 04-12-2022 Eosinophils/100 WBC (Bld)2.7 %.[facility] HospitalErythrocyte distribution width Auto (RBC) [Ratio]Ordered By: Ramesh Byrd on 04-12-2022 Erythrocyte distribution width (RBC) [Ratio]16.7 %12.0-14.8[facility] HospitalEstimated glomerular filtration rate (GFR) non- Ordered By: Ramesh Byrd on 35-30-7460YMK/1.73 sq M.predicted among non- blacks MDRD (S/P/Bld) [Vol rate/Area]> 60 mL/MinGreen Cross HospitalGlobulin Calc (S) [Mass/Vol]Ordered By: Ramesh Byrd on 04-12-2022 Globulin (S) [Mass/Vol]4.7 g/dLGreen Cross HospitalGlucose Glucometer (BldC) [Mass/Vol]Ordered By: Ramesh Byrd on 80-91-6769Ihabyyp [Mass/Vol]168 mg/dLGreen Cross HospitalComment on above:Random Glucose Reference Range is dependent on time and content of last meal. Glucose of more than 200 mg/dL in a nonstressed, ambulatory subject supports the diagnosis of Diabetes Mellitus.Hematocrit Auto (Bld) [Volume fraction]Ordered By: Ramesh Byrd on 47-59-1246Iwpojipavu (Bld) [Volume fraction]36.7 % 38.8-50.0[facility] HospitalKetones Auto test strip (U) [Mass/Vol] Ordered By: Ramesh Byrd on 39-96-7471Ajwgksr (U) [Mass/Vol]TraceNegative [facility] HospitalLaboratory - Chemistry and Chemistry - challengeOrdered By: Ramesh Byrd on 63-02-6234Hwofhbqmm [Mass/Vol]1.3 mg/dL1.6-2.6FWood County HospitalNatriuretic peptide B (Bld) [Mass/Vol]196.0 pg/mL5-100[facility] HospitalLaboratory - CoagulationOrdered By: Ramesh Byrd on 44-49-6610RB Coag (PPP) [Time]12.5 s 9.0-12.9[facility] HospitalLaboratory - Hematology and Cell counts Ordered By: Ramesh Byrd on 50-62-7109Fnkiwfcsl RBC/100 WBC (Bld) [Ratio] 0.1 %0-0.5FWood County HospitalLaboratory - UrinalysisOrdered By: Ramesh Byrd on 33-40-7656Tfhqzhv casts LM Ql (Urine sed)0-8 [LPF]0-8 [facility] HospitalLymphocytes Auto (Bld) [#/Vol]Ordered By: Ramesh Byrd on 25-27-1172Hnbdnyitybi (Bld) [#/Vol]1.0 10*3/uL1.00-4.8 [facility] HospitalLymphocytes/100 WBC Auto (Bld)Ordered By: Ramesh Byrd on 51-44-8400Rutbekqcvwl/100 WBC (Bld)16.1 %.[facility] HospitalMCH Auto (RBC) [Entitic mass]Ordered By: Ramesh Byrd on 20-87-5261DRB (RBC) [Entitic mass]31.0 pg27.5-35.2FWood County HospitalMCHC Auto (RBC) [Mass/Vol]Ordered By: Ramesh Byrd on 31-46-8219NMMP (RBC) [Mass/Vol]33.1 g/dL32.5-35.6FWood County HospitalMCV Auto (RBC) [Entitic vol]Ordered By: Ramesh Byrd on 01-07-9369VGC (RBC) [Entitic vol]93.5 fL83.5-101[facility] HospitalMonocytes Auto (Bld) [#/Vol]Ordered By: Ramesh Byrd on 11-64-5586Fzppolkwp (Bld) [#/Vol]0.8 10*3/uL0.0-0.8[facility] HospitalMonocytes/100 WBC Auto (Bld)Ordered By: Ramesh Byrd on 26-58-6950Sjzndtzld/100 WBC (Bld)12.0 %. [facility] HospitalNeutrophils Auto (Bld) [#/Vol]Ordered By: Ramesh Byrd on 93-22-7490Bxvwmxzbmoo (Bld) [#/Vol]4.4 10*3/uL1.8-7.7 [facility] HospitalNeutrophils/100 WBC Auto (Bld)Ordered By: Ramesh Byrd on 44-56-9132Jeuwivtxevd/100 WBC (Bld)68.6 %.[facility] HospitalNitrite Test strip Ql (U)Ordered By: Ramesh Byrd on 24-79-6701Cyhkyuv Ql (U)NegativeNegativeGreen Cross HospitalNo Panel InformationOrdered By: Ramesh Byrd on 60-64-9498Mzxkyhqgg GFR ()> 60 mL/MinGreen Cross HospitalComment on above: GFR estimated reference range: According to KDOQI guidelines, <60 ml/min/1.73m2 is sufficient todiagnose a patient with chronic kidney disease.Pharmacy Creatinine Clearance (Chem97.67[facility] HospitalPlatelet mean volume Auto (Bld) [Entitic vol]Ordered By: Ramesh Byrd on 04-12-2022 Platelet mean volume (Bld) [Entitic vol]8.0 fL6.6-10.1FWood County HospitalPlatelet poor plasma international normalized ratio (INR) by coagulation assay (relatOrdered By: Ramesh Byrd on 38-01-5485GGV Coag (PPP) [Relative time]1.1 {INR}[facility] HospitalComment on above:INR Therapeutic Range A) Pre- [...] Auto (Bld) [#/Vol]Ordered By: Ramesh Byrd on 24-68-2374Yptshvxha (Bld) [#/Vol]191 10*3/iW143-099ZakhqwvpvGreen Cross HospitalProtein Auto test strip (U) [Mass/Vol]Ordered By: Ramesh Byrd on 47-41-8356Cqpxmrx (U) [Mass/Vol]100 mg/dLNegativeGreen Cross HospitalProtein [Mass/volume] in Serum or PlasmaOrdered By: Ramesh Byrd on 49-95-4429Wypijge [Mass/Vol]7.0 g/dL 6.1-7.9[facility] HospitalRBC Auto (Bld) [#/Vol]Ordered By: Ramesh Byrd on 51-06-4948VED (Bld) [#/Vol]3.93 10*6/uL3.90-5.60[facility] Hospitalerum or plasma alanine aminotransferase measurement without P-5'-P (enzymatic activiOrdered By: Ramesh Byrd on 13-43-6009UIX No additional P-5'-P [Catalytic activity/Vol]34 U/X09-21HcotlssqrGenesis Hospitalerum or plasma albumin/globulin mass ratioOrdered By: Ramesh Byrd on 35-04-1503Grgvxcw/Globulin [Mass ratio]0.5 {ratio}[facility] Hospitalerum or plasma alkaline phosphatase measurement (enzymatic activity/volume)Ordered By: Ramesh Byrd on 12-21-7217UVH [Catalytic activity/Vol]97 U/I03-55NubskubkxGenesis Hospitalerum or plasma anion gap determinationOrdered By: Ramesh Byrd on 90-98-3717Gvips gap [Moles/Vol]17.1 mmol/L6.0-15.0[facility] Hospitalerum or plasma aspartate aminotransferase measurement (enzymatic activity/volume)Ordered By: Ramesh Byrd on 44-24-8900JVI [Catalytic activity/Vol]136 U/Z62-71GmbsgtbjtGenesis Hospitalerum or plasma calcium measurement (mass/volume)Ordered By: Ramesh Byrd on 80-35-0041Ebfhnfv [Mass/Vol]8.6 mg/dL8.2-10.2FLima City Hospitalerum or plasma chloride measurement (moles/volume) Ordered By: Ramesh Byrd on 03-31-9622Bdbnbozm [Moles/Vol]97 mmol/L95-114 [facility] Hospitalerum or plasma glucose measurement (mass/volume)Ordered By: Ramesh Byrd on 00-88-1887Eztqpyz [Mass/Vol]164 mg/oT39-461GsoqwdapgGreen Cross HospitalComment on above:ADA recommended reference range Random Glucose Reference Range is dependent on time and content of last meal. Glucose of more than 200 mg/dL in a nonstressed, ambulatory subject supports the diagnosis of Diabetes Mellitus.Serum or plasma potassium measurement (moles/volume)Ordered By: Ramesh Byrd on 92-87-6157Qemexkiso [Moles/Vol] 3.5 mmol/L3.5-5.1FLima City Hospitalerum or plasma sodium measurement (moles/volume)Ordered By: Ramesh Byrd on 72-37-4927Hnaatu [Moles/Vol]136 mmol/X845-942UkzouhnmeGenesis Hospitalerum or plasma total bilirubin measurement (mass/volume)Ordered By: Ramesh Byrd on 37-10-4281Uituvobnk [Mass/Vol]1.3 mg/dL0.3-1.2FWood [facility] Hospital Comment on above:Samples from patients who have taken Naproxen have shown spurious elevation in Total Bilirubin levels. A metabolite of Naproxen, O- desmethylnaproxen, has been shown to interfere with the Ronny-Chirag method for measuring Total Bilirubin.Serum or plasma total carbon dioxide measurement (moles/volume)Ordered By: Ramesh Byrd on 43-50-1578OM4 [Moles/Vol]25.4 mmol/L22.0-30.0[facility] Hospitalerum or plasma urea nitrogen measurement (mass/volume)Ordered By: Ramesh Byrd on 85-36-2573Cjyg nitrogen [Mass/Vol]13 mg/dL9-23[facility] Hospitalpecific gravity Auto test strip (U) [Rel density]Ordered By: Ramesh Byrd on 04-12-2022 Specific gravity (U) [Rel density]1.0201.001-1.030[facility] Hospitalquamous epithelial cells detection in urine sediment by light microscopy Ordered By: Ramesh Byrd on 34-59-3669Exekizdved cells.squamous LM Ql (Urine sed)0-1 [HPF]0-2FWood County HospitalTS DL <= 0.005 mIU/L Qn Ordered By: Ramesh Byrd on 48-28-0985OYO Qn13.14 m[IU]/L0.45-5.33[facility] HospitalTroponin I.cardiac [Mass/volume] in Serum or Plasma by High sensitivity methodOrdered By: Ramesh Byrd on 83-25-7364Zlqqzqsr I.cardiac High sensitivity method [Mass/Vol]18 pg/mL0-20[facility] HospitalUrine bacteria detection by automated methodOrdered By: Ramesh Byrd on 03-78-4182Acscjgel Auto Ql (U)None seenNone SeenGreen Cross HospitalUrine clarity by refractometry automatedOrdered By: Ramesh Byrd on 81-01-4182Yguepkd Refractometry automated (U)ClearClearFWood County HospitalUrine glucose measurement by automated test strip (mass/volume)Ordered By: Ramesh Byrd on 95-34-8960Qxxkbet Auto test strip (U) [Mass/Vol]Normal mg/dLNoBarney Children's Medical CenterUrine hemoglobin detection by automated test stripOrdered By: Ramesh Byrd on 16-10-7578Oqynghmdae Auto test strip Ql (U)2+NegativeGreen Cross HospitalUrine leukocyte esterase detection by automated test stripOrdered By: Ramesh Byrd on 54-17-9511Lhflfiinz esterase Auto test strip Ql (U)Negative NegativeGreen Cross HospitalUrobilinogen Auto test strip (U) [Mass/Vol]Ordered By: Ramesh Byrd on 75-83-6867Ybugjbakzuwf (U) [Mass/Vol] Normal mg/dLNormSelect Medical Cleveland Clinic Rehabilitation Hospital, AvonpH Auto test strip (U)Ordered By: Ramesh Byrd on 12-35-4226iS (U)6.5 [pH]5.0-9.0[facility] HospitalAlbumin [Mass/volume] in Serum or PlasmaOrdered By: Lupe Hernandez on 94-14-6115Rijgcfk [Mass/Vol]1.9 g/dL3.2-5.5FWood [facility] Hospital Basophils Auto (Bld) [#/Vol]Ordered By: Lupe Hernandez on 90-29-4299Kpmsncfpb (Bld) [#/Vol]0.1 10*3/uL0.0-0.2FWood County HospitalBasophils/100 WBC Auto (Bld)Ordered By: Lupe Hernandez on 20-89-5842Fpzhgfzqf/100 WBC (Bld)1.3 %.[facility] HospitalBlood hemoglobin measurement (mass/volume) Ordered By: Lupe Hernandez on 95-89-9150Yrcnxndumb (Bld) [Mass/Vol]11.2 g/dL 13.0-17.0[facility] HospitalBlood leukocytes automated count (number/volume)Ordered By: Lupe Hernandez on 94-56-5624PDR (Bld) [#/Vol]5.4 10*3/uL4.5-11.0[facility] HospitalCreatinine and Glomerular filtration rate.predicted panel (S/P/Bld)Ordered By: Lupe Hernandez on 04-09-2022 Creatinine [Mass/Vol]0.88 mg/dL0.64-1.27[facility] Eosinophils Auto (Bld) [#/Vol]Ordered By: Lupe Hernandez on 43-44-2235Zbvuvifdldg (Bld) [#/Vol]0.3 10*3/uL0.0-0.45[facility] Eosinophils/100 WBC Auto (Bld)Ordered By: Lupe Hernandez on 04-09-2022 Eosinophils/100 WBC (Bld)5.6 %.[facility] HospitalErythrocyte distribution width Auto (RBC) [Ratio]Ordered By: Lupe Hernandez on 04-09-2022 Erythrocyte distribution width (RBC) [Ratio]16.5 %12.0-14.8[facility] HospitalEstimated glomerular filtration rate (GFR) non- Ordered By: Lupe Hernandez on 32-35-3632QZD/1.73 sq M.predicted among non-blacks MDRD (S/P/Bld) [Vol rate/Area]> 60 mL/MinGreen Cross Hospital Globulin Calc (S) [Mass/Vol]Ordered By: Lupe Hernandez on 52-14-9603Yjvdfyng (S) [Mass/Vol]4.2 g/dLGreen Cross HospitalGlucose Glucometer (BldC) [Mass/Vol]Ordered By: Lupe Hernandez on 94-26-8590Pscvglu [Mass/Vol]178 mg/dL [facility] HospitalComment on above:Random Glucose Reference Range is dependent on time and content of last meal. Glucose of more than 200 mg/dL in a nonstressed, ambulatory subject supports the diagnosis of Diabetes Mellitus.Hematocrit Auto (Bld) [Volume fraction]Ordered By: Lpue Hernandez on 61-64-8966Kqbkumfzzq (Bld) [Volume fraction]33.6 %38.8-50.0[facility] HospitalLaboratory - Hematology and Cell countsOrdered By: Lupe Hernandez on 54-34-9634Lxqmuvmkn RBC/100 WBC (Bld) [Ratio]0.2 %0-0.5FWood County HospitalLymphocytes Auto (Bld) [#/Vol]Ordered By: Lupe Hernandez on 08-48-5003Pvigdevmmqq (Bld) [#/Vol]1.0 10*3/uL1.00-4.8[facility] HospitalLymphocytes/100 WBC Auto (Bld)Ordered By: Lupe Hernandez on 04-09-2022 Lymphocytes/100 WBC (Bld)18.3 %.[facility]H Auto (RBC) [Entitic mass]Ordered By: Lupe Hernandez on 62-33-0978HQV (RBC) [Entitic mass] 31.1 pg27.5-35.2FWood County HospitalMCHC Auto (RBC) [Mass/Vol] Ordered By: Lupe Hernandez on 90-97-9235HTXP (RBC) [Mass/Vol]33.5 g/dL32.5-35.6 [facility] HospitalMCV Auto (RBC) [Entitic vol]Ordered By: Lupe Hernandez on 26-16-7889HDS (RBC) [Entitic vol]93.0 fL83.5-101[facility] HospitalMonocytes Auto (Bld) [#/Vol]Ordered By: Lupe Hernandez on 77-88-6329Satamsevf (Bld) [#/Vol]0.6 10*3/uL0.0-0.8[facility] HospitalMonocytes/100 WBC Auto (Bld)Ordered By: Lupe Hernandez on 04-09-2022 Monocytes/100 WBC (Bld)11.0 %.[facility] HospitalNeutrophils Auto (Bld) [#/Vol]Ordered By: Lupe Hernandez on 22-56-8062Wlekgmqqvrk (Bld) [#/Vol]3.4 10*3/uL1.8-7.7FWood County HospitalNeutrophils/100 WBC Auto (Bld) Ordered By: Lupe Hernandez on 96-79-7555Xccxraboyqh/100 WBC (Bld)63.8 %.[facility] HospitalNo Panel InformationOrdered By: Lupe Hernandez on 70-38-3209Dconzuq Glucose CommentGlu2: cleaned meterGreen Cross HospitalEstimated GFR ()> 60 mL/MinGreen Cross HospitalComment on above:GFR estimated reference range: According to KDOQI guidelines, <60 ml/min/1.73m2 is sufficient todiagnose a patient with chronic kidney disease.Pharmacy Creatinine Clearance (Hnur982.27[facility] HospitalPlatelet mean volume Auto (Bld) [Entitic vol]Ordered By: Lupe Hernandez on 33-01-4995Njvcsyrp mean volume (Bld) [Entitic vol]7.6 fL6.6-10.1 [facility] HospitalPlatelets Auto (Bld) [#/Vol]Ordered By: Lupe Hernandez on 43-45-8247Syjoorukg (Bld) [#/Vol]214 10*3/jM224-812AxpoemkzuGreen Cross HospitalProtein [Mass/volume] in Serum or PlasmaOrdered By: Lupe Hernandez on 61-89-0211Kkkjcfc [Mass/Vol]6.1 g/dL6.1-7.9[facility] RBC Auto (Bld) [#/Vol]Ordered By: Lupe Hernandez on 71-86-5689YWS (Bld) [#/Vol] 3.61 10*6/uL3.90-5.60[facility] Hospitalerum or plasma alanine aminotransferase measurement without P-5'-P (enzymatic activiOrdered By: Lupe Hernandez on 04-09-1997VOT No additional P-5'-P [Catalytic activity/Vol]21 U/L10-60 [facility] Hospitalerum or plasma albumin/globulin mass ratio Ordered By: Lupe Hernandez on 28-59-3950Czhtoke/Globulin [Mass ratio]0.5 {ratio} [facility] Hospitalerum or plasma alkaline phosphatase measurement (enzymatic activity/volume)Ordered By: Lupe Hernandez on 04-09-2022 ALP [Catalytic activity/Vol]89 U/Z03-75FggtrulvfGenesis Hospitalerum or plasma anion gap determinationOrdered By: Lupe Hernandez on 32-94-9188Aukfs gap [Moles/Vol]8.4 mmol/L6.0-15.0[facility] Hospitalerum or plasma aspartate aminotransferase measurement (enzymatic activity/volume)Ordered By: Lupe Hernandez on 16-19-5161OLR [Catalytic activity/Vol]27 U/Q30-84IyvmawsfgGenesis Hospitalerum or plasma calcium measurement (mass/volume)Ordered By: Lupe Hernandez on 88-52-6716Iejycwl [Mass/Vol]8.2 mg/dL8.2-10.2FLima City Hospitalerum or plasma chloride measurement (moles/volume) Ordered By: Lupe Hernandez on 45-42-6461Toendwhf [Moles/Vol]98 mmol/L95-114 [facility] Hospitalerum or plasma glucose measurement (mass/volume)Ordered By: Lupe Hernandez on 58-11-8684Xjibxie [Mass/Vol]150 mg/dL 70-100[facility] HospitalComment on above:ADA recommended reference range Random Glucose Reference Range is dependent on time and content of last meal. Glucose of more than 200 mg/dL in a nonstressed, ambulatory subject supports the diagnosis of Diabetes Mellitus.Serum or plasma potassium measurement (moles/volume)Ordered By: Lupe Hernandez on 56-59-5347Jkbjbjgyj [Moles/Vol]3.4 mmol/L3.5-5.1FLima City Hospitalerum or plasma sodium measurement (moles/volume)Ordered By: Lupe Hernandez on 21-21-8140Ikvaig [Moles/Vol]134 mmol/V689-515YsfxhzilkGenesis Hospitalerum or plasma total bilirubin measurement (mass/volume)Ordered By: Lupe Hernandez on 84-94-4370Jqpmhkgtb [Mass/Vol]0.7 mg/dL0.3-1.2FLima City Hospitalerum or plasma total carbon dioxide measurement (moles/volume)Ordered By: Lupe Hernandez on 93-80-4775UC4 [Moles/Vol]31.0 mmol/L22.0-30.0[facility] Serum or plasma urea nitrogen measurement (mass/volume)Ordered By: Lupe Hernandez on 49-93-8828Afps nitrogen [Mass/Vol]9 mg/dL9-23[facility] HospitalBacterial blood cultureOrdered By: Luke Moran on 00-21-0557Mfbzetzu identified Cx Nom (Bld)NO GROWTH 5 DAYSGreen Cross Hospital Laboratory - Chemistry and Chemistry - challengeOrdered By: Luke Moran on 52-40-2415GK6 [Moles/Vol]29.4 mmol/L23.0-27.0[facility] HCO3 (Bld) [Moles/Vol]28.1 mmol/L23.0-29.0[facility] HospitalNo Panel InformationOrdered By: Luke Moran on 41-97-3085Ikkokqlu Blood Base Excess3.4 mmol/L-3.0-3.0[facility] HospitalArterial Blood Oxygen Content6.4 mmol/L6.6-9.7FWood County HospitalArterial Blood Oxygen Xtlikfaxoh87.1 %95.0-100.0[facility] HospitalArterial Blood Partial Pressure CO243.2 mm[Hg]35.0-45.0[facility] Arterial Blood Partial Pressure O261.4 mm[Hg]80.0-100.0[facility] HospitalArterial Blood pH7.437.35-7.45[facility] Blood Gas Critical ValueSee commentGreen Cross HospitalComment on above:Critical Value called on: 04/04/2022 at 09:33Blood Gas Liter Flow2 L/min [facility] HospitalBlood Gas Sample SiteLeft radialGreen Cross HospitalFiO228 %[facility] HospitalOxygen Delivery DeviceNasal cannulaGreen Cross HospitalAutomated erythrocytes count in urine sediment (number/area)Ordered By: Jair Gabriel on 10-71-6222SNQ Auto (Urine sed) [#/Area]3-4 [HPF]0-4FWood County HospitalAutomated leukocytes count in urine sediment (number/area)Ordered By: Jair Gabriel on 41-37-2897RGW Auto (Urine sed) [#/Area]None seen [HPF]0-4FWood County HospitalBilirubin Test strip Ql (U)Ordered By: Jair Gabriel on 04-03-2022 Bilirubin Ql (U)NegativeNegativeGreen Cross HospitalColor Auto (U) Ordered By: Jair Gabriel on 51-56-5820Tljfe (U)YellowYellowGreen Cross HospitalHepatitis B virus surface Ag [Presence] in Serum or Plasma by ImmunoassayOrdered By: Luke Moran on 81-76-4463TUY surface Ag IA QlNegative NegativeGreen Cross HospitalComment on above:Performed at: [address] [id number] Data Management Analyst: Genaro Becerril PhD, Phone: [phone] [Mass/volume] in Serum or PlasmaOrdered By: Luke Moran on 95-66-9044AiC [Mass/Vol]697 mg/vU24-352 [facility] HospitalIgG [Mass/volume] in Serum or PlasmaOrdered By: Luke Moran on 23-22-8668VxN [Mass/Vol]1107 mg/uB789-9534GqhqlzrhjGreen Cross HospitalIgM [Mass/volume] in Serum or PlasmaOrdered By: Luke Moran on 30-46-8305LhS [Mass/Vol]91 mg/yG06-563IbgmksqagGreen Cross HospitalComment on above:Performed at: [address] [id number] Data Management Analyst: Genaro Becerril PhD, Phone: [phone] for Urine Ordered By: Luke Moran on 91-73-4615Gjrofbenfefixo Immunofixation (U) [Interp]See comment.[facility] HospitalComment on above:No monoclonality detected. Performed at: [address] [id number] Data Management Analyst: Genaro Becerril PhD, Phone: [phone] light chains.kappa.free [Mass/volume] in SerumOrdered By: Luke Moran on 04-03-2022 Immunoglobulin light chains.kappa.free (S) [Mass/Vol]93.9 mg/L3.3-19.4FWood County HospitalImmunoglobulin light chains.kappa.free/Immunoglobulin light chains.lambda.free [MassOrdered By: Luke Mroan on 04-03-2022 Immunoglobulin light chains.kappa.free/Immunoglobulin light chains.lambda.free (S) [Mass ratio]1.520.26-1.65[facility] HospitalComment on above: Performed at: [facility] [id number] Data Management Analyst: Genaro Becerril PhD, Phone: [phone] light chains.lambda.free [Mass/volume] in Serum or PlasmaOrdered By: Luke Moran on 08-43-7148Owbgvjcnfdjjhc light chains.lambda.free [Mass/Vol]61.6 mg/L5.7-26.3 [facility] HospitalKetones Auto test strip (U) [Mass/Vol]Ordered By: Jair Gabriel on 90-87-9076Lfmxlad (U) [Mass/Vol]NegativeNegativeGreen Cross HospitalLaboratory - UrinalysisOrdered By: Jair Gabriel on 38-00-4188Rpemukx casts LM Ql (Urine sed)0-8 [LPF]0-8[facility] HospitalNitrite Test strip Ql (U)Ordered By: Jair Gabriel on 48-39-5565Qkhuxpm Ql (U)NegativeNegativeGreen Cross HospitalNo Panel InformationOrdered By: Luke Moran on 74-53-0894Xoihmuudl C InterpretationSee comment.[facility] HospitalComment on above:Negative Not infected with HCV, unless recent infection is suspected or other evidence exists to indicate HCV infection.Hepatitis C RNA QuantitativeN/[facility] Hospitalerum ImmunofixationSee comment.[facility] HospitalComment on above: Immunofixation shows IgG monoclonal protein with lambda light chain specificity.Protein Auto test strip (U) [Mass/Vol]Ordered By: Jair Gabriel on 17-03-6630Lgfvxvp (U) [Mass/Vol]NegativeNegativeGreen Cross HospitalRandom cortisol measurementOrdered By: Luke Moran on 02-85-7209Nuallazf [Mass/Vol]5.8 ug/dLGreen Cross HospitalComment on above:Reference range: AM 6 - 24 ug/dl PM <10 ug/dlSerum hepatitis B virus surface antibody detectionOrdered By: Luke Moran on 30-46-9495NAK surface Ab Ql (S)Reactive.[facility] HospitalComment on above:Non Reactive: Inconsistent with immunity, less than 10 mIU/mL Reactive: Consistent with immunity, greater than 9.9 mIU/mL --- 04/04/22735 --- Hep B Cyndee Ab previously reported as: Non Reactive Non Reactive: Inconsistent with immunity, less than 10 mIU/mL Reactive: Consistent with immunity, greater than 9.9 mIU/mLSerum or plasma hepatitis C virus antibody signal/cutoff ratio by immunoassay (relatiOrdered By: Luke Moran on 19-25-6646CGT Ab Signal/Cutoff IA [Rel units/Vol]0.1 s/co ratio0.0-0.9[facility] HospitalComment on above:--- 04/04/22735 --- Hep C Ab previously reported as: <0.1 s/co ratio Specific gravity Auto test strip (U) [Rel density]Ordered By: Jair Gabriel on 94-03-5039Addrnkxi gravity (U) [Rel density]1.0351.001-1.030[facility] Hospitalquamous epithelial cells detection in urine sediment by light microscopyOrdered By: Jair Gabriel on 30-28-8791Knzgxgsgar cells.squamous LM Ql (Urine sed)None seen [HPF]0-2FFult[facility] DL <= 0.005 mIU/L QnOrdered By: Luke Moran on 73-99-7975YTT Qn22.19 m[IU]/L0.45-5.33 [facility] HospitalUrine bacteria detection by automated method Ordered By: Jair Gabriel on 60-12-4803[place] Auto Ql (U)None seenNone Seen [facility] HospitalUrine clarity by refractometry automatedOrdered By: Jair Gabriel on 26-11-7394Xatitah Refractometry automated (U)ClearClear [facility] HospitalUrine glucose measurement by automated test strip (mass/volume)Ordered By: Jair Gabriel on 41-84-8303Usggbdk Auto test strip (U) [Mass/Vol]100 mg/dLNormalGreen Cross HospitalUrine hemoglobin detection by automated test stripOrdered By: Jair Crowderzi on 13-37-2610Wgsuowbkuo Auto test strip Ql (U)3+NegativeGreen Cross HospitalUrine leukocyte esterase detection by automated test stripOrdered By: Jair Crowderzi on 10-52-8197Sliadxchx esterase Auto test strip Ql (U)NegativeNegativeGreen Cross HospitalUrobilinogen Auto test strip (U) [Mass/Vol]Ordered By: Jair Crowderzi on 35-55-4216Trkyewimblqm (U) [Mass/Vol]Normal mg/dLNormalGreen Cross HospitalpH Auto test strip (U)Ordered By: Jair Crowderzi on 93-42-4878cK (U)5.0 [pH]5.0-9.0[facility] HospitalActivated partial thromboplastin time (aPTT) in platelet poor plasma by coagulation a Ordered By: Jair Gabriel on 71-21-1355eHIS Coag (PPP) [Time]24.8 s25.1-36.5 [facility] HospitalCOVID-19 Positive/NegativeOrdered By: Jairsydnee Gabriel on 87-62-6955STRS-CoV-2 (COVID-19) N gene MANJIT+probe Ql (Resp)Negative NegativeGreen Cross HospitalComment on above:Testing for SARS-CoV-2 by RT-PCR This test was developed and its performance characteristics determined by [employer] ([employer] and validated at the [facility]. This test has not been FDA [...] revoked sooner.COVID-19 SOFIAOrdered By: Jair Gabriel on 46-90-0726DCMJ-CoV+SARS-CoV-2 (COVID-19) Ag IA.rapid Ql (Resp)NegativeNegative [facility] HospitalComment on above:This is a duplicate Cristal SARS Antigen (GONZALO) result to be used for statistical tracking purpose only. Laboratory - Chemistry and Chemistry - challengeOrdered By: Jair Gabriel on 72-72-4366Mkyzedvpcff peptide B (Bld) [Mass/Vol]55.0 pg/mL5-100[facility] HospitalLaboratory - CoagulationOrdered By: Jair Gabriel on 32-66-3261AA Coag (PPP) [Time]11.9 s9.0-12.9[facility] HospitalNo Panel InformationOrdered By: Luke Moran on 52-99-9505N-Dimer Quantitative (PE/DVT)2825 ng/mL0-243[facility] HospitalComment on above:The reference range for D-dimer [...] By: Jair Gabriel on 04-02-2022 SARS Antigen (LFIA)[facility] HospitalPlatelet poor plasma international normalized ratio (INR) by coagulation assay (relatOrdered By: Jair Gabriel on 13-25-6470TMJ Coag (PPP) [Relative time]1.1 {INR}[facility] HospitalComment on above:INR Therapeutic Range A) Pre- [...] High sensitivity methodOrdered By: Jair Gabriel on 65-18-7645Jlzeqfnw I.cardiac High sensitivity method [Mass/Vol]26 pg/mL 0-20Green Cross HospitalAlbumin [Mass/volume] in Serum or Plasma Ordered By: Sarah Osuna on 89-47-8665Vlhznxi [Mass/Vol]1.9 g/dL3.2-5.5FWood County HospitalCreatinine and Glomerular filtration rate.predicted panel (S/P/Bld)Ordered By: Sarah Osuna on 48-78-5282Zzburoblhj [Mass/Vol]1.27 mg/dL0.64-1.27Green Cross HospitalEstimated glomerular filtration rate (GFR) non- AmericanOrdered By: Sarah Osuna on 88-12-7713KZP/1.73 sq M.predicted among non-blacks MDRD (S/P/Bld) [Vol rate/Area]57 mL/MinGreen Cross HospitalGlucose Glucometer (BldC) [Mass/Vol]Ordered By: Xin Phan on 71-03-6516Fytcfos [Mass/Vol]377 mg/dLGreen Cross Hospital Comment on above:Random Glucose Reference Range is dependent on time and content of last meal. Glucose of more than 200 mg/dL in a nonstressed, ambulatory subject supports the diagnosis of Diabetes Mellitus.No Panel InformationOrdered By: Sarah Osuna on 20-95-1132Zoxytojty GFR ()> 60 mL/Min [facility] Cross HospitalComment on above:GFR estimated reference range: According to KDOQI guidelines, <60 ml/min/1.73m2 is sufficient todiagnose a patient with chronic kidney disease.Pharmacy Creatinine Clearance (Chem90.76 [facility] Hospitalerum or plasma calcium measurement (mass/volume)Ordered By: Sarah Osuna on 69-78-5268Ssytbxa [Mass/Vol]8.4 mg/dL 8.2-10.2FLima City Hospitalerum or plasma chloride measurement (moles/volume)Ordered By: Sarah Osuna on 02-81-3909Qavravgh [Moles/Vol]99 mmol/K56-636TgustewriGenesis Hospitalerum or plasma glucose measurement (mass/volume)Ordered By: Sarah Osuna on 94-64-2055Pglkeak [Mass/Vol]265 mg/dL 70-100[facility] Cross HospitalComment on above:Delta: 480 on 03/15/22-1040 ADA recommended reference range Random Glucose Reference Range is dependent on time and content of last meal. Glucose of more than 200 mg/dL in a nonstressed, ambulatory subject supports the diagnosis of Diabetes Mellitus.Serum or plasma potassium measurement (moles/volume)Ordered By: Xin Phan on 92-59-0532Bqkwnnhgi [Moles/Vol]4.0 mmol/L3.5-5.1FLima City Hospitalerum or plasma sodium measurement (moles/volume)Ordered By: Sarah Osuna on 65-60-2164Lkidqu [Moles/Vol]132 mmol/S358-155OfxlwfyjnGenesis Hospitalerum or plasma total carbon dioxide measurement (moles/volume)Ordered By: Sarah Osuna on 73-33-8875DQ4 [Moles/Vol]25.4 mmol/L22.0-30.0Genesis Hospitalerum or plasma urea nitrogen measurement (mass/volume)Ordered By: Sarah Osuna on 03-16-2022 Urea nitrogen [Mass/Vol]24 mg/dL9-23Genesis Hospitalerum phospholipid phosphorus measurement (mass/volume)Ordered By: Xin Phan on 72-16-9864Gsysceqvdcko phosphorus (S) [Mass/Vol]2.0 mg/dL2.5-4.6FWood County HospitalNo Panel InformationOrdered By: Xin Phan on 37-18-9109Yqcjzjo Glucose CommentSee commentGreen Cross Hospital Comment on above:Glu2: WILL NOTIFY DR/RNBedside Glucose #2 CommentCleaned meter [facility] Cross HospitalAutomated erythrocytes count in urine sediment (number/area)Ordered By: Sarah Osuna on 46-75-5690DEK Auto (Urine sed) [#/Area] 0-1 [HPF]0-4FWood County HospitalAutomated leukocytes count in urine sediment (number/area)Ordered By: Sarah Osuna on 94-84-5524QJH Auto (Urine sed) [#/Area]0-1 [HPF]0-4FWood County HospitalBasophils Auto (Bld) [#/Vol]Ordered By: Leah Huang on 01-60-6647Dwjydhnxe (Bld) [#/Vol]0.0 10*3/uL 0.0-0.2FWood County HospitalBasophils/100 WBC Auto (Bld)Ordered By: Leah Huang on 53-90-0886Ksxxitsrg/100 WBC (Bld)0.2 %.[facility] Cross HospitalBilirubin Auto test strip Ql (U)Ordered By: Sarah Osuna on 03-14-2022 Bilirubin Ql (U)NegativeNegativeGreen Cross HospitalBlood hemoglobin measurement (mass/volume)Ordered By: Leah Huang on 03-14-2022 Hemoglobin (Bld) [Mass/Vol]11.6 g/dL13.0-17.0[facility] Blood leukocytes automated count (number/volume)Ordered By: Leah Huang on 99-49-0538GUD (Bld) [#/Vol]6.0 10*3/uL4.5-11.0[facility] Creatinine [Mass/volume] in UrineOrdered By: Sarah Osuna on 03-14-2022 Creatinine (U) [Mass/Vol]76.9 mg/dLGreen Cross HospitalComment on above:No reference range establishedEosinophils Auto (Bld) [#/Vol]Ordered By: Leah Huang on 59-55-7752Mfquivtwwdg (Bld) [#/Vol]0.1 10*3/uL0.0-0.45[facility] Cross HospitalEosinophils/100 WBC Auto (Bld)Ordered By: Leah Huang on 21-36-6053Kcxwvarnmmn/100 WBC (Bld)1.4 %.[facility] Erythrocyte distribution width Auto (RBC) [Ratio]Ordered By: Leah Huang on 58-79-9932Mqmyjwfddve distribution width (RBC) [Ratio]15.8 %12.0-14.8[facility] Cross HospitalGlobulin Calc (S) [Mass/Vol]Ordered By: Leah Huang on 75-01-7784Rohxzawn (S) [Mass/Vol]3.8 g/dLGreen Cross Hospital Glucose mean value [Mass/volume] in Blood Estimated from glycated hemoglobin Ordered By: Leah Huang on 5534Zukzsma glucose Estimated from glycated hemoglobin (Bld) [Mass/Vol]329 mg/dLGreen Cross HospitalHematocrit Auto (Bld) [Volume fraction]Ordered By: Leah Huang on 28-77-4352Smisuumvuw (Bld) [Volume fraction]35.1 %38.8-50.0[facility] Hemoglobin A1c percentageOrdered By: Leah Huang on 03-12-2766MzN6m (Bld) [Mass fraction]13.1 %4.3-5.6FWood County HospitalComment on above: Increased risk for diabetes: 5.7 - 6.4 diabetes: >6.4 glycemic control for adults with diabetes: <7.0Ketones Auto test strip (U) [Mass/Vol]Ordered By: Sarah Osuna on 08-37-1321Sbwdwwv (U) [Mass/Vol]Negative NegativeGreen Cross HospitalLaboratory - Hematology and Cell counts Ordered By: Leah Huang on 53-28-7051Lssjxelgg RBC/100 WBC (Bld) [Ratio]0.1 % 0-0.5FWood County HospitalLaboratory - UrinalysisOrdered By: Sarah Osuna on 83-27-6857Dsdyhvp casts LM Ql (Urine sed)0-8 [LPF]0-8[facility] HospitalLymphocytes Auto (Bld) [#/Vol]Ordered By: Leah Huang on 45-10-2193Frwihrxmces (Bld) [#/Vol]1.4 10*3/uL1.00-4.8[facility] HospitalLymphocytes/100 WBC Auto (Bld)Ordered By: Leah Huang on 03-14-2022 Lymphocytes/100 WBC (Bld)22.7 %.[facility] Auto (RBC) [Entitic mass]Ordered By: Leah Huang on 85-26-4098QTE (RBC) [Entitic mass]29.9 pg27.5-35.2FWood County HospitalMCHC Auto (RBC) [Mass/Vol]Ordered By: Leah Huang on 21-04-5704IDBH (RBC) [Mass/Vol]33.0 g/dL32.5-35.6FWood County HospitalMCV Auto (RBC) [Entitic vol]Ordered By: Leah Huang on 67-34-4191LZS (RBC) [Entitic vol]90.4 fL83.5-101Green [facility] HospitalMonocytes Auto (Bld) [#/Vol]Ordered By: Leah Huang on 45-58-4101Nuceoxrld (Bld) [#/Vol]0.5 10*3/uL0.0-0.8[facility] HospitalMonocytes/100 WBC Auto (Bld)Ordered By: Leah Huang on 44-42-6575Ugesnjhtd/100 WBC (Bld)9.0 %. [facility] HospitalNeutrophils Auto (Bld) [#/Vol]Ordered By: Leah Huang on 46-55-7060Fpnceqskvzl (Bld) [#/Vol]4.0 10*3/uL1.8-7.7FWood County HospitalNeutrophils/100 WBC Auto (Bld)Ordered By: Leah Huang on 26-02-5316Elrxkoarsrn/100 WBC (Bld)66.7 %.[facility] Platelet mean volume Auto (Bld) [Entitic vol]Ordered By: Leah Huang on 73-35-1852Iirsxxfn mean volume (Bld) [Entitic vol]8.9 fL6.6-10.1FWood County HospitalPlatelets Auto (Bld) [#/Vol]Ordered By: Leah Huang on 90-30-0866Dunsitjdx (Bld) [#/Vol]143 10*3/vE851-783LucxeawwwGreen Cross HospitalProtein Auto test strip (U) [Mass/Vol]Ordered By: Sarah Osuna on 16-08-9270Lomjpez (U) [Mass/Vol]NegativeNegativeGreen Cross HospitalProtein [Mass/volume] in Serum or PlasmaOrdered By: Leah Huang on 16-42-3177Ihqjrnk [Mass/Vol]5.8 g/dL6.1-7.9[facility] Protein [Mass/volume] in UrineOrdered By: Sarah Osuna on 42-34-5800Moglqoe (U) [Mass/Vol]13 mg/dL0-9[facility] HospitalRBC Auto (Bld) [#/Vol] Ordered By: Leah Huang on 59-97-1099NFU (Bld) [#/Vol]3.88 10*6/uL3.90-5.60 [facility] Hospitalerum or plasma alanine aminotransferase measurement without P-5'-P (enzymatic activiOrdered By: Leah Huang on 37-36-0783ZXA No additional P-5'-P [Catalytic activity/Vol]35 U/Z63-21QvyhrdcivGenesis Hospitalerum or plasma albumin/globulin mass ratioOrdered By: Leah Huang on 26-86-6362Cvrmojq/Globulin [Mass ratio]0.5 {ratio}[facility] Hospitalerum or plasma alkaline phosphatase measurement (enzymatic activity/volume)Ordered By: Leah Huang on 68-99-8553GEZ [Catalytic activity/Vol]120 U/B38-92PimvpknywGenesis Hospitalerum or plasma aspartate aminotransferase measurement (enzymatic activity/volume)Ordered By: Leah Huang on 83-42-7257CTA [Catalytic activity/Vol]36 U/P59-99KvhswaoubGenesis Hospitalerum or plasma total bilirubin measurement (mass/volume) Ordered By: Leah Huang on 25-78-9803Mnkjxlsbk [Mass/Vol]1.0 mg/dL0.3-1.2 [facility] Hospitalquamous epithelial cells detection in urine sediment by light microscopyOrdered By: Sarah Osuna on 55-62-8502Svqadjjsgm cells.squamous LM Ql (Urine sed)None seen [HPF]0-2FWood County HospitalUrea nitrogen [Mass/volume] in UrineOrdered By: Leah Huang on 03-14-2022 Urea nitrogen (U) [Mass/Vol]454 mg/dLNot Estab.[facility] Comment on above:Performed at: - [facility] [id number] Data Management Analyst: Genaro Becerril PhD, Phone: [phone] appearanceOrdered By: Sarah Osuna on 92-52-3976Gmzuvbsotg (U)ClearClearFWood County HospitalUrine bacteria detection by automated methodOrdered By: Sarah Osuna on 95-04-0044Xancagcy Auto Ql (U)None seenNone SeenGreen Cross HospitalUrine colorOrdered By: Sarah Osuna on 89-74-3414Vcrab (U)YellowYellow [facility] HospitalUrine glucose measurement by automated test strip (mass/volume)Ordered By: Sarah Osuna on 42-72-7254Godvucd Auto test strip (U) [Mass/Vol]>=1000 mg/dLWayne HealthCare Main CampusUrine hemoglobin detection by automated test stripOrdered By: Sarah Osuna on 35-96-9213Yuosrhfwag Auto test strip Ql (U)2+NegativeGreen Cross HospitalUrine leukocyte esterase detection by automated test stripOrdered By: Sarah Osuna on 51-80-8845Pzfwfrxlh esterase Auto test strip Ql (U)NegativeNegative [facility] HospitalUrine nitrite detection by automated test strip Ordered By: Sarah Osuna on 45-99-1982Rywodho Auto test strip Ql (U)Negative NegativeGreen Cross HospitalUrine protein/creatinine ratioOrdered By: Sarah Osuna on 29-65-4516Tchktxx/Creatinine (U) [Ratio]169 mg/g{Cre}0-200 [facility] HospitalUrine sodium measurement (moles/volume)Ordered By: Leah Huang on 48-31-8497Ebrpsw (U) [Moles/Vol]20 mmol/LFWood County HospitalComment on above:No reference range establishedUrobilinogen Auto test strip (U) [Mass/Vol]Ordered By: Sarah Osuna on 64-83-1908Vuqjkmpohrmv (U) [Mass/Vol]Normal mg/dLWayne HealthCare Main CampusYeast detection in urine sediment by light microscopyOrdered By: Sarah Osuna on 37-65-7287Oirnh LM Ql (Urine sed)Budding yeast [HPF]None SeenGreen Cross Hospital Comment on above:1+ BUDDING YEASTpH Auto test strip (U)Ordered By: Sarah Osuna on 97-10-7414tQ (U)1.020 [pH]1.001-1.030[facility] HospitalpH (U) 5.5 [pH]5.0-9.0[facility] HospitalPOINT OF CARE GLUCOSEon 52-14-5205Khvwxwr [Mass/Vol]161 mg/dLCritically mqpd11-403HzfCoshocton Regional Medical Center Comment on above:Performed By: #### TSH, BMP #### [facility] [address] [place] [address] Dr. Ladan DiehlPOINT CARE GLUCOSEon 98-04-3770Pggsqfc [Mass/Vol]358 mg/dL Critically izrg43-854FzqCoshocton Regional Medical CenterComment on above:Performed By: #### A1C #### [facility] [address] [address] [address] Ladan DiehlGlucose [Mass/Vol]279 mg/dLCritically fyaz41-523CkfCoshocton Regional Medical CenterComment on above:Performed By: #### A1C #### [facility] [address] [place] [address] Dr. Ladan DiehlGlucose [Mass/Vol]247 mg/dLCritically gbqc72-561TwdCoshocton Regional Medical CenterComment on above:Performed By: #### TSH, BMP #### [facility] [address] [address] [address] Ladan DiehlGlucose [Mass/Vol]357 mg/dLCritically zwwv84-473VtjCoshocton Regional Medical CenterComment on above:Performed By: #### A1C #### [facility] [address] [place] [address] Dr. Ladan DiehlPROF CHEM 8 (BAS METB)on 47-87-6689Onikf gap [Moles/Vol]11.1 mmol/LNormalCoshocton Regional Medical CenterComment on above:Performed By: #### TSH, BMP #### [facility] [address] [address] [address] Ladan DiehlCalcium [Mass/Vol]8.8 mg/dLNormal8.5-10.1[facility] Comment on above:Performed By: #### TSH, BMP #### [facility] [address] [address] [address] Ladan DiehlChloride [Moles/Vol]99 mmol/MXhimat59-547Epk [facility] Comment on above:Performed By: #### TSH, BMP #### [facility] [address] [place] [address] Dr. Ladan DiehlCO2 [Moles/Vol]27.2 mmol/TFcdywe89.0-32.0The [facility] Comment on above:Performed By: #### TSH, BMP #### [facility] [address] [place] [address] Dr. Ladan DiehlCreatinine [Mass/Vol]1.59 mg/dLCritically high0.70-1.30The [facility] CenterComment on above:Performed By: #### TSH, BMP #### [facility] [address] [place] [address] Dr. Pickering ChangEGFR-AF IVBORJTO39 mL/min/1.95w7Rwvadmaqyd low>=60The [facility] CenterComment on above:Performed By: #### TSH, BMP #### [facility] [address] [place] [address] Dr. Ladan JosephGFR-NON AF CCZULGGF12 mL/min/1.75g7Vbthbectzv low>=60The [facility] CenterComment on above:Performed By: #### TSH, BMP #### [facility] [address] [place] [address] Dr. Ladan DiehlGlucose [Mass/Vol]284 mg/dLCritically crvl11-473Bse [facility] CenterComment on above:Performed By: #### TSH, BMP #### [facility] [address] [place] [address] Dr. Ladan DiehlPotassium [Moles/Vol]4.2 mmol/LNormal3.5-5.1The [facility] Comment on above:Performed By: #### TSH, BMP #### [facility] [address] [address] [address] Ladan DiehlSodium [Moles/Vol]133 mmol/LCritically zqk161-488Aqp [facility] CenterComment on above:Performed By: #### TSH, BMP #### [facility] [address] [address] [address] Ladan DiehlUrea nitrogen [Mass/Vol]22.0 mg/dLCritically high7.0-18.0The [facility] CenterComment on above:Performed By: #### TSH, BMP #### [facility] [address] [place] [address] Dr. Ladan Wilson nitrogen/Creatinine [Mass ratio]13.8 mg/mgNormalThe [facility] CenterComaspirus iron river hospital on above:Performed By: #### TSH, BMP #### [facility] [address] [place] [address] Dr. Ladan Dominguez, HIGH SENSITIVITYon 30-01-9453XUCRQQ84.7 pg/mLNormal 4.0-76.1The [facility] on above:Result Comment: CUT-OFF POINTS HAVE BEEN ESTABLISHED BASED ON THE FOURTH UNIVERSAL DEFINITIONS OF MYOCARDIAL INFARCTION. THE UPPER REFERENCE LIMIT (URL) OF TROPONIN, DEFINED THE 99TH PERCENTILE OF cTnI DISTRIBUTION IN A REFERENCE POPULATION, HAS BEEN CONFIRMED THE DECISION THRESHOLD FOR UT DIAGNOSIS.Performed By: #### HSTROPN #### [facility] [address] [place] [address] Dr. Ladan Quiles 35-08-8386WPM4.381 uIU/mLNormal0.358-3.740The [facility] on above:Performed By: #### TSH, BMP #### [facility] [address] [place] [address] Dr. Ladan Carpenter LIT DOP LEG BILon [id number] LIT DOP LEG BILEXAMINATION: US LIT DOP [...] Electronically authenticated by: CAROL YIP Date: 2022-01-24 09:[address] [place], [place] [address]BNPon 78-29-3749Gmxtjmxxuyk peptide B (Bld) [Mass/Vol]262.0 pg/mLNormal<=900.0The [facility] CenterComment on above:Performed By: #### A1C #### [facility] [address] [place] [address] Dr. Ladan Barragan AUTO DIFFon 78-89-6292XQMF #0.1 103/ulNormal0.0-0.1The [facility] CenterComment on above:Performed By: #### TSH, BMP #### [facility] [address] [place] [address] Dr. Ladan Freedmansophils/100 WBC (Bld)0.8 %Normal0.2-2.0[facility] Comment on above:Performed By: #### TSH, BMP #### [facility] [address] [place] [address] Dr. Ladan Schmidt #0.3 103/ulNormal0.0-0.7The [facility] CenterComment on above: Performed By: #### TSH, BMP #### [facility] [address] [place] [address] Dr. Ladan Josephosinophils/100 WBC (Bld)4.4 %Normal0.9-7.0The [facility] Comment on above:Performed By: #### TSH, BMP #### [facility] [address] [place] [address] Dr. Ladan Josephrythrocyte distribution width (RBC) [Ratio]14.0 %Vkrmdh35.0-15.0 The [facility] CenterComment on above:Performed By: #### TSH, BMP #### [facility] [address] [place] [address] Dr. Yilan ChangHematocrit (Bld) [Volume fraction]38.3 %Critically low42.0-54.0 The [facility] CenterComment on above:Performed By: #### TSH, BMP #### [facility] [address] [place] [address] Dr. Ladan DiehlHemoglobin (Bld) [Mass/Vol]12.0 g/dLCritically low14.0-18.0The [facility] CenterComment on above:Performed By: #### TSH, BMP #### [facility] [address] [place] [address] Dr. Ladan Partida #0.03 10e3/ulNormal0.00-0.03The [facility] CenterComment on above:Performed By: #### TSH, BMP #### [facility] [address] [place] [address] Dr. Ladan Partida %0.5 %Normal0.0-0.5The [facility] CenterComment on above: Performed By: #### TSH, BMP #### [facility] [address] [place] [address] Dr. Ladan Moser #1.2 103/ulNormal1.2-3.8The [facility] CenterComment on above:Performed By: #### TSH, BMP #### [facility] [address] [place] [address] Dr. Ladan Rogershocytes/100 WBC (Bld)20.2 %Critically low20.5-60.0The [facility] CenterComaspirus iron river hospital on above:Performed By: #### TSH, BMP #### [facility] [address] [place] [address] Dr. Ladan DiehlMANUAL DIFF REQNONormalThe [facility] CenterComment on above: Performed By: #### TSH, BMP #### [facility] [address] [place] [address] Dr. Ladan Castillo (RBC) [Entitic mass]29.6 diXnrdes58.9-34.0The [facility] CenterComment on above:Performed By: #### TSH, BMP #### [facility] [address] [address] [address] Ladan GibbsHC (RBC) [Mass/Vol]31.3 g/qMCdjpye88.9-35.2The [facility] CenterComment on above:Performed By: #### TSH, BMP #### [facility] [address] [place] [address] Dr. Ladan Gibbs (RBC) [Entitic vol]94.6 fLCritically high80.0-94.0The [facility] HospitalComment on above:Performed By: #### TSH, BMP #### [facility] [address] [place] [address] Dr. Ladan Barone #0.7 103/ulNormal0.3-0.8The [facility] CenterComment on above:Performed By: #### TSH, BMP #### [facility] [address] [place] [address] Dr. Ladan Stanleyocytes/100 WBC (Bld)10.7 %Normal1.7-12.0The [facility] Comment on above:Performed By: #### TSH, BMP #### [facility] [address] [place] [address] Dr. Ladan Shrestha #3.9 103/ulNormal1.4-6.5The [facility] CenterComment on above:Performed By: #### TSH, BMP #### [facility] [address] [place] [address] Dr. Ladan Humphreyutrophils/100 WBC (Bld)63.4 %Idnszb59.0-75.0The [facility] CenterComment on above:Performed By: #### TSH, BMP #### [facility] [address] [place] [address] Dr. Ladan Tejadalet mean volume (Bld) [Entitic vol]10.0 fLNormal9.5-13.5The [facility] CenterComment on above:Performed By: #### TSH, BMP #### [facility] [address] [place] [address] Dr. Ladan DiehlPLT171 103/adUzivxv260-531Skg [facility] CenterComment on above: Performed By: #### TSH, BMP #### [facility] [address] [place], [place] [address] Dr. Ladan DiehlRBC4.05 106/ulCritically low4.70-6.10The [facility] CenterComaspirus iron river hospital on above:Performed By: #### TSH, BMP #### [facility] [address] [place], [place] [address] Dr. Pickering ChangWBC6.1 103/ulNormal4.0-11.0The [facility] CenterComaspirus iron river hospital on above: Performed By: #### TSH, BMP #### [facility] [address] [address] [address] Ladan Harrison CHEST WO W CONon 75-39-8994UKZ CHEST WO W CONEXAM: CTA chest. CLINICAL [...] Electronically authenticated by: XIN BUI Date: 2022-01-23 19:35NoThe [facility] Medical CenterCovid-19 PCR (CVDTB)on 98-85-6133HQXQ-CoV-2 (COVID-19) RNA MANJIT+probe Ql (Unsp spec)Not detectedNormalNOT DETECTEDThe [facility] Comment on above:Result Comment: When diagnostic testing [...] for this test is supported by the [place] of [employer] and Human Service's declaration that [...] longer be used).Performed By: #### A1C #### [facility] [address] [place] [address] Dr. Ladan DiehlLACTATE/LACTIC ACIDon 20-27-1573Dqalmke [Moles/Vol]1.6 mmol/L Normal0.4-1.9The [facility] CenterComment on above:Performed By: #### LACT #### [facility] [address] [place] [address] Dr. Ladan DiehlPROF 14(COMP METB)on 77-93-0999Bjgwidr [Mass/Vol]2.7 g/dL Critically low3.4-5.0The [facility] CenterComment on above:Performed By: #### A1C #### [facility] [address] [place] [address] Dr. Ladan DiehlAlbumin/Globulin [Mass ratio]0.5 {ratio}NormalThe [facility] on above:Performed By: #### A1C #### [facility] [address] [place] [address] Dr. Ladan DiehlALP [Catalytic activity/Vol]120 U/LCritically dwrp07-217Grq Nery HospitalComment on above:Performed By: #### A1C #### [facility] [address] [address] [address] Ladan Gregg [Catalytic activity/Vol]23 U/VWbikcm27-25Fcm [facility] CenterComment on above:Performed By: #### A1C #### [facility] [address] [address] [address] Ladan DiehlAnion gap [Moles/Vol]10.3 mmol/LNormalThe [facility] Comment on above:Performed By: #### A1C #### [facility] [address] [address] [address] Ladan DiehlAST [Catalytic activity/Vol]29 U/YQflldz50-43Svn [facility] CenterComment on above:Performed By: #### A1C #### [facility] [address] [address] [address] Ladan DiehlBilirubin [Mass/Vol]1.0 mg/dLNormal0.2-1.0The [facility] Comment on above:Performed By: #### A1C #### [facility] [address] [address] [address] Ladan DiehlCalcium [Mass/Vol]8.8 mg/dLNormal8.5-10.1The [facility] Comment on above:Performed By: #### A1C #### [facility] [address] [address] [address] Ladan DiehlChloride [Moles/Vol]101 mmol/TFjopjj34-031Jqr [facility] Comment on above:Performed By: #### A1C #### [facility] [address] [address] [address] Ladan DiehlCO2 [Moles/Vol]30.8 mmol/UJwxbwd29.0-32.0The [facility] Comment on above:Performed By: #### A1C #### [facility] [address] [address] [address] Ladan DiehlCreatinine [Mass/Vol]1.40 mg/dLCritically high0.70-1.30The [facility]ery HospitalComment on above:Performed By: #### A1C #### [facility] [address] [address] [address] Ladan JosephGFR-AF IRAQI>60Normal>=60The [facility] Medical CenterComment on above:Performed By: #### A1C #### [facility] [address] [address] [address] Ladan JosephGFR-NON AF CTMNXTEY04 mL/min/1.27h6Pghhezpdqf low>=60The [facility] CenterComment on above:Performed By: #### A1C #### [facility] [address] [address] [address] Ladan DiehlGlobulin (S) [Mass/Vol]5.3 g/dLNormalThe [facility] Medical CenterComment on above:Performed By: #### A1C #### [facility] [address] [address] [address] Ladan DiehlGlucose [Mass/Vol]125 mg/dLCritically xnke20-318Mvg [facility] CenterComment on above:Performed By: #### A1C #### [facility] [address] [address] [address] Ladan DiehlPotassium [Moles/Vol]4.1 mmol/LNormal3.5-5.1The [facility] Comment on above:Performed By: #### A1C #### [facility] [address] [address] [address] Ladan DiehlProtein [Mass/Vol]8.0 g/dLNormal6.4-8.2The [facility] Comment on above:Performed By: #### A1C #### [facility] [address] [address] [address] Ladan DiehlSodium [Moles/Vol]138 mmol/GQkgftu189-944Sni [facility] Comment on above:Performed By: #### A1C #### [facility] [address] [address] [address] Ladan DiehlUrea nitrogen [Mass/Vol]20.0 mg/dLCritically high7.0-18.0The [facility] CenterComment on above:Performed By: #### A1C #### [facility] [address] [place] [address] Dr. Ladan Wilson nitrogen/Creatinine [Mass ratio]14.3 mg/mgNoThe University of Toledo Medical CenterComment on above:Performed By: #### A1C #### [facility] [address] [place] [address] Dr. Ladan DiehlPROTIMEon [id number] Coag (PPP) [Relative time]1.02 {INR} NormalThe [facility] CenterComment on above:Performed By: #### PT, PTT #### [facility] [address] [place] [address] Dr. Ladan Pires GUIDELINESSEE BELOWDoctors HospitalComment on above:Result Comment: DESIRED INR: 2.0 - 3.0 CONDITIONS NOT LISTED BELOW 2.5 - 3.5 FOR PROSTHETIC HEART VALVE REPLACEMENT 2.5 - 3.5 RECURRENT THROMBOSIS Performed By: #### PT, PTT #### [facility] [address] [place] [address] Dr. Ladan DiehlPT Coag (PPP) [Time]11.0 sNormal9.0-11.6The [facility] Comment on above:Performed By: #### PT, PTT #### [facility] [address] [place] [address] Dr. Ladan Correia [id number] Coag (Bld) [Time]27.6 cQybapo35.3-36.2The [facility] CenterComment on above:Performed By: #### PT, PTT #### [facility] [address] [place] [address] Dr. Ladan Dominguez, HIGH SENSITIVITYon 52-48-6495DJQGAG99.4 pg/mLNormal 4.0-76.1The [facility] on above:Result Comment: CUT-OFF POINTS HAVE BEEN ESTABLISHED BASED ON THE FOURTH UNIVERSAL DEFINITIONS OF MYOCARDIAL INFARCTION. THE UPPER REFERENCE LIMIT (URL) OF TROPONIN, DEFINED THE 99TH PERCENTILE OF cTnI DISTRIBUTION IN A REFERENCE POPULATION, HAS BEEN CONFIRMED THE DECISION THRESHOLD FOR UT DIAGNOSIS.Performed By: #### A1C #### [facility] [address] [address] [address] Ladan DiehlCT ABD/PELV W CONon [id number] ABD/PELV W CONEXAMINATION: CT ABD/PELV W CON [...] Electronically authenticated by: TANNER PEDRAZA Date: 2022-01-18 23:39NoThe [facility] of [facility] Medical CenterXR CHEST 1 Von [id number] CHEST 1 VEXAM: Chest x-ray HISTORY: . COUGH . COMPARISON: None. TECHNIQUE: AP portable upright view of the chest FINDINGS: Film is underpenetrated. Heart and vascularity are unremarkable. Lungs are free of focal infiltrates. EKG leads overlie the chest. IMPRESSION: 1. Underpenetrated chest. 2. No acute heart or lung disease identified. Electronically authenticated by: ROSELIA RIVERA Date: 2022-01-18 22:16NoThe [facility] of [facility] Medical CenterXR KNEE LT 4V or >on [id number] KNEE LT 4V or >EXAM: XR KNEE LT 4V or > HISTORY: Pain COMPARISON: None. TECHNIQUE: 4 views of the left knee FINDINGS: No acute fracture is seen. Joint alignment is normal. Joint spaces are preserved. Soft tissues are unremarkable. No significant joint effusion is seen. IMPRESSION: No acute fracture or malalignment. Electronically authenticated by: JENNIFER CASTILLO Date: 2022-01-18 23:06NoC[facility] Foundation AUTO DIFFon [id number] #0.1 103/ulNormal0.0-0.1The [facility] CenterComment on above:Performed By: #### CBC #### [facility] [address] [address] [address] Ladan DiehlBasophils/100 WBC (Bld)0.8 %Normal0.2-2.0The [facility] Comment on above:Performed By: #### CBC #### [facility] [address] [address] [address] Ladan Schmidt #0.4 103/ulNormal0.0-0.7The [facility] Medical CenterComment on above: Performed By: #### CBC #### [facility] [address] [address] [address] Ladan Josephosinophils/100 WBC (Bld)4.3 %Normal0.9-7.0The [facility] Comment on above:Performed By: #### CBC #### [facility] [address] [place] [address] Dr. Ladan Josephrythrocyte distribution width (RBC) [Ratio]14.4 %Ucfcaw20.0-15.0 The [facility] Medical CenterComment on above:Performed By: #### CBC #### [facility] [address] [place] [address] Dr. Ladan DiehlHematocrit (Bld) [Volume fraction]37.2 %Critically low42.0-54.0 The [facility] Medical CenterComment on above:Performed By: #### CBC #### [facility] [address] [place] [address] Dr. Ldaan DiehlHemoglobin (Bld) [Mass/Vol]11.9 g/dLCritically low14.0-18.0The [facility] CenterComment on above:Performed By: #### CBC #### [facility] [address] [address] [address] Ladan Partida #0.04 10e3/ulCritically high0.00-0.03The [facility] Comment on above:Performed By: #### CBC #### [facility] [address] [place] [address] Dr. Ladan Partida %0.5 %Normal0.0-0.5The [facility] Medical CenterComment on above: Performed By: #### CBC #### [facility] [address] [place] [address] Dr. Ladan Moser #2.2 103/ulNormal1.2-3.8The [facility] Medical CenterComment on above:Performed By: #### CBC #### [facility] [address] [place] [address] Dr. Ladan Rogershocytes/100 WBC (Bld)26.2 %Qfcqkm25.5-60.0The [facility] Medical CenterComment on above:Performed By: #### CBC #### [facility] [address] [place] [address] Dr. Ladan BergerUAL DIFF REQNONormalThe [facility] Medical CenterComment on above: Performed By: #### CBC #### [facility] [address] [place] [address] Dr. Ladan Castillo (RBC) [Entitic mass]30.4 xjYvatqs50.9-34.0The [facility] Medical CenterComment on above:Performed By: #### CBC #### [facility] [address] [place] [address] Dr. Ladan Gibbs (RBC) [Mass/Vol]32.0 g/hYQzzddi56.9-35.2The [facility] CenterComment on above:Performed By: #### CBC #### [facility] [address] [place] [address] Dr. Ladan Gibbs (RBC) [Entitic vol]94.9 fLCritically high80.0-94.0The [facility] Medical CenterComment on above:Performed By: #### CBC #### [facility] [address] [address] [address] Ladan Barone #0.9 103/ulCritically high0.3-0.8The [facility] Comment on above:Performed By: #### CBC #### [facility] [address] [address] [address] Ladan Stanleyocytes/100 WBC (Bld)10.3 %Normal1.7-12.0The [facility] Comment on above:Performed By: #### CBC #### [facility] [address] [place] [address] Dr. Ladan Shrestha #5.0 103/ulNormal1.4-6.5The [facility] Medical CenterComment on above:Performed By: #### CBC #### [facility] [address] [place] [address] Dr. Ladan Humphreyutrophils/100 WBC (Bld)57.9 %Ugawym55.0-75.0The [facility] Medical CenterComment on above:Performed By: #### CBC #### [facility] [address] [place] [address] Dr. Ladan Tejadalet mean volume (Bld) [Entitic vol]9.9 fLNormal9.5-13.5The [facility] Medical CenterComment on above:Performed By: #### CBC #### [facility] [address] [place] [address] Dr. Ladan DiehlPLT180 103/rcVemsou367-378Wjq [facility] CenterComment on above: Performed By: #### CBC #### [facility] [address] [place] [address] Dr. Ladan DiehlRBC3.92 106/ulCritically low4.70-6.10The [facility] CenterComment on above:Performed By: #### CBC #### [facility] [address] [place] [address] Dr. Ladan DiehlWBC8.6 103/ulNormal4.0-11.0The [facility] Medical CenterComment on above: Performed By: #### CBC #### [facility] [address] [place] [address] Dr. Ladan SinhaF 14(COMP METB)on 05-58-7399Yuhymoj [Mass/Vol]2.6 g/dL Critically low3.4-5.0The [facility] Medical CenterComment on above:Performed By: #### CMP #### [facility] [address] [place] [address] Dr. Ladan DiehlAlbumin/Globulin [Mass ratio]0.5 {ratio}NormalThe [facility] Medical CenterComment on above:Performed By: #### CMP #### [facility] [address] [place] [address] Dr. Ladan MontañoP [Catalytic activity/Vol]184 U/LCritically fuqn39-523Dwz [facility] CenterComment on above:Performed By: #### CMP #### [facility] [address] [place] [address] Dr. Ladan MontañoT [Catalytic activity/Vol]24 U/OPohpvj52-06Wzv [facility] CenterComment on above:Performed By: #### CMP #### [facility] [address] [place] [address] Dr. Ladan Sexton gap [Moles/Vol]10.1 mmol/LNormalThe [facility] Comment on above:Performed By: #### CMP #### [facility] [address] [place] [address] Dr. Ladan DiehlAST [Catalytic activity/Vol]22 U/SRkabxd35-30Xec [facility] CenterComment on above:Performed By: #### CMP #### [facility] [address] [place] [address] Dr. Ladan DiehlBilirubin [Mass/Vol]0.5 mg/dLNormal0.2-1.0The [facility] Comment on above:Performed By: #### CMP #### [facility] [address] [place] [address] Dr. Ladan DiehlCalcium [Mass/Vol]8.6 mg/dLNormal8.5-10.1[facility] Comment on above:Performed By: #### CMP #### [facility] [address] [address] [address] Ladan DiehlChloride [Moles/Vol]101 mmol/VAdqzqz73-318Uww [facility] Comment on above:Performed By: #### CMP #### [facility] [address] [address] [address] Ladan DiehlCO2 [Moles/Vol]30.9 mmol/TNbzpdl36.0-32.0The [facility] Comment on above:Performed By: #### CMP #### [facility] [address] [address] [address] Ladan DiehlCreatinine [Mass/Vol]1.72 mg/dLCritically high0.70-1.30The [facility] CenterComment on above:Performed By: #### CMP #### [facility] [address] [address] [address] Pickering ChangEGFR-AF LGEEAJJF12 mL/min/1.48w9Szivhmpjth low>=60The [facility] CenterComment on above:Performed By: #### CMP #### [facility] [address] [address] [address] Ladan JosephGFR-NON AF HUBLRYBB25 mL/min/1.68s4Piwvlasshj low>=60The [facility] CenterComment on above:Performed By: #### CMP #### [facility] [address] [address] [address] Ladan DiehlGlobulin (S) [Mass/Vol]5.2 g/dLNormalThe [facility] CenterComment on above:Performed By: #### CMP #### [facility] [address] [address] [address] Ladan DiehlGlucose [Mass/Vol]253 mg/dLCritically jptg75-282Bdy [facility] CenterComment on above:Performed By: #### CMP #### [facility] [address] [address] [address] Ladan DiehlPotassium [Moles/Vol]4.0 mmol/LNormal3.5-5.1The [facility] Comment on above:Performed By: #### CMP #### [facility] [address] [address] [address] Ladan DiehlProtein [Mass/Vol]7.8 g/dLNormal6.4-8.2The [facility] Comment on above:Performed By: #### CMP #### [facility] [address] [address] [address] Ladan DiehlSodium [Moles/Vol]138 mmol/SCbihmo073-922Lhr [facility] Comment on above:Performed By: #### CMP #### [facility] [address] [address] [address] Ladan DiehlUrea nitrogen [Mass/Vol]30.0 mg/dLCritically high7.0-18.0The [facility] CenterComment on above:Performed By: #### CMP #### [facility] [address] [address] [address] Ladan Wilson nitrogen/Creatinine [Mass ratio]17.4 mg/mgNormalThe [facility] CenterComment on above:Performed By: #### CMP #### [facility] [address] [address] [address] Ladan Diehl Vital Signs Date TimeVital SignValuePerforming QexeohayxXnaurkrd62-04-8541 11:00-0400Body uzylbqbwhzu54.3 [degF]Arline Lazar [employer] Work Phone: 1(327)[address]10-17-2025 11:00-0400 Diastolic blood mm[Hg]Arline Lazar [employer] Work Phone: 1(414)[address]10-17-2025 11:00-0400 Heart rate78 /Nicolás Lazar [employer] Work Phone: 1(547)22[address]10-17-2025 11:00-0400 Respiratory rate18 /Nicolás Lazar [employer] Work Phone: [phone])129[address]10-17-2025 11:00-0400 SaO2% (BldA) [Mass fraction]97 %Arline Lazar [employer] Work Phone: 4(768)[address]10-17-2025 11:00-0400 Systolic blood xbpidohl444 mm[Hg]Arline Cady [employer] Work Phone: 1(994)[address]10-17-2025 09:34-0400 Body .8 cmPamela Cady [employer] Work Phone: 1(203)[address]10-13-2025 09:00-0400 Body xpupii495.6 kgPamela Cady [employer] Work Phone: 1(809)48[address]10-06-2025 13:18-0400 Body lydewauyboc07.5 [degF]Arline Cady [employer] Work Phone: 1(366)[address] [place], [place] 548[address]10-06-2025 13:18-0400 Diastolic blood kaensbew84 mm[Hg]Arline Cady [employer] Work Phone: 1(638)[address]10-06-2025 13:18-0400 Heart rate90 /minPamela Cady [employer] Work Phone: 1(489)[address] [place], [place] 5487210-06-2025 13:18-0400 Respiratory rate20 /minPamela Cady [employer] Work Phone: 1(219)[address] [place], [place] 5487210-06-2025 13:18-0400 SaO2% (BldA) [Mass fraction]96 %Arline Cady [employer] Work Phone: 1(595)[address]10-06-2025 13:18-0400 Systolic blood naycccbm416 mm[Hg]Arline Cady [employer] Work Phone: 1(592)[address]10-06-2025 08:59-0400 Body .8 cmPamela Cady [employer] Work Phone: 1(356)[address]10-06-2025 08:59-0400 Body nvosxb073.14 kgPamela Cady [employer] Work Phone: 1(457)[address]07-31-2025 16:14-0400 Body wufjcg470.8 cmSteven Rusher DPM Work Phone: 1(154)206-[address] [place], [place] [address]Scdobueypk68-25-3989 16:14-0400Body mass index (BMI) [Ratio]47.35 kg/r2Gccldj Rusher DPM Work Phone: 1(032)[address]07-31-2025 16:14-0400Body vpjire968.69 kgSteven Rusher DPM Work Phone: 1(623)[address]07-18-2025 13:05-0400Diastolic blood mm[Hg]Arline Cady [employer] Work Phone: 1(110)103-[address] [place], [place] 7934407-18-2025 13:05-0400 Heart rate61 /minParhiannaa Cady [employer] Work Phone: 1(839)[facility] [place], [place] 7934407-18-2025 13:05-0400 Respiratory rate16 /minParhiannaa Cady [employer] Work Phone: 1(343)[address] [place], [place] 5487207-18-2025 13:05-0400 SaO2% (BldA) [Mass fraction]95 %Arline Cady [employer] Work Phone: 1(604)[address] [place], [place] 5487207-18-2025 13:05-0400 Systolic blood mm[Hg]Arline Cady [employer] Work Phone: 1(807)[address] [place], [place] 5487207-18-2025 11:42-0400 Body .8 cmPamela Cady [employer] Work Phone: 1(377)[address]07-18-2025 11:42-0400 Body mqivrk810.61 kgPamela Cady [employer] Work Phone: 1(046)27276 [address]07-08-2025 13:00-0400 Body .8 cmSteven Rusher DPM Work Phone: 1([phone])[address]07-08-2025 13:00-0400Body mass index (BMI) [Ratio]47.35 kg/o1Ybtkxk Rusher DPM Work Phone: 1(192)[address]07-08-2025 13:00-0400Body ikayae625.69 kgSteven Rusher DPM Work Phone: 1(037)607-[address] [place], [place] [address]Nmzufvdllb19-94-0816 11:010400Body gfxmod554.8 cmSteven Rusher DPM Work Phone: 1(667)[address] [place], [place] 3892506-11-2025 11:01-0400Body mass index (BMI) [Ratio]47.35 kg/x2Ufmkzw Rusher DPM Work Phone: 1(678)[address]06-11-2025 11:010400Body xkmaec983.69 kgSteven Rusher DPM Work Phone: 1(582)[address] [place], [place] 3892505-09-2025 13:43-0400Body tusuiz953.72 cmPamela Cady [employer] Work Phone: 1(376)[address]05-09-2025 13:43-0400 Body uwewbj344.8 kgPamela Cady [employer] Work Phone: 1(659)[address]05-09-2025 13:43-0400 Diastolic blood gwqcvjyu74 mm[Hg]Arline Cady [employer] Work Phone: 1(264)07[address]05-09-2025 13:43-0400 Heart rate70 /minPamela Cady [employer] Work Phone: 1(005)[address]05-09-2025 13:43-0400 Respiratory rate20 /minPamela Cady [employer] Work Phone: 1(698)44[address]05-09-2025 13:43-0400 SaO2% (BldA) [Mass fraction]97 %Arline Cady [employer] Work Phone: 1(352)767[address]05-09-2025 13:43-0400 Systolic blood mm[Hg]Arline Cady [employer] Work Phone: 1(958)[address]04-08-2025 11:24-0400 Diastolic blood soeyilja904 mm[Hg]Arline Cady [employer] Work Phone: 1(641)72376 [address]04-08-2025 11:24-0400 Heart rate64 /minArline Cady [employer] Work Phone: [facility]04-08-2025 11:24-0400 Respiratory rate18 /minArline Cady [employer] Work Phone: [facility]04-08-2025 11:24-0400 SaO2% (BldA) [Mass fraction]95 %Arline Cady [employer] Work Phone: [facility]04-08-2025 11:24-0400 Systolic blood oqpucaay248 mm[Hg]Arline Cady [employer] Work Phone: [facility]04-08-2025 11:18-0400 Body akwgzf777.8 cmPtrudy Cady [employer] Work Phone: [facility]04-08-2025 11:18-0400 Body .68 kgParhiannaa Cady [employer] Work Phone: [facility]09-21-2022 06:00-0400 Diastolic blood mhpwsiyr95 mm[Hg]Et3 HosuerqwUeqbeGilfsq45-98-0889 06:00-0400 Heart rate89 /minEt3 KfmozdxfCulmhNagyph80-39-4280 06:00-0400Respiratory rate20 /minEt3 CjaarxaxOfsacGdkugd73-16-3888 06:00-1866GmX3% (BldA) [Mass fraction]91 % Et3 ResourceMetroHealthComment on above:2 L [place] at gorcomxp64-81-3159 06:00-0400 Systolic blood taazqnxj23 mm[Hg]Et3 GbjywmppXhlkfEuawae94-09-1214 15:01-0400Body nekeaqjwotd38.3 [degF]MD Ayden Freeman Work Phone: [facility]09-02-2022 15:01-0400 Diastolic blood zunwhioi42 mm[Hg]MD Ayden Freeman Work Phone: [facility]09-02-2022 15:01-0400 Heart rate90 /minMD Ayden Freeman Work Phone: 1(419)547-[address] [place], [place] 9862809-02-2022 15:01-0400 Respiratory rate20 /minMD Ayden Freeman Work Phone: 1(032)[address]09-02-2022 15:01-0400 SaO2% (BldA) [Mass fraction]92 %MD Ayden Freeman Work Phone: 1(019)64259 [address]09-02-2022 15:01-0400 Systolic blood xtshtzax206 mm[Hg]MD Ayden Freeman Work Phone: 1([phone])[address]09-02-2022 10:48-0400 Body bilvqg412.8 cmMD Ayden Freeman Work Phone: 1(123)[address]09-02-2022 10:48-0400 Body ztksux696.22 kgMD Ayden Freeman Work Phone: 1(493)[address] [place], [place] 3354008-30-2022 12:00-0400 Diastolic blood qrjwypya57 mm[Hg]MD Ayden Freeman Work Phone: 1(621)04459 [address]08-30-2022 12:00-0400 Heart rate99 /minMD Ayden Freeman Work Phone: 1(460)99459 [address]08-30-2022 12:00-0400 Inhaled oxygen flow rate2 L/minMD Ayden Freeman Work Phone: 1(146)76259 [address]08-30-2022 12:00-0400 Respiratory rate18 /minMD Ayden Freeman Work Phone: 1(947)[address]08-30-2022 12:00-0400 SaO2% (BldA) [Mass fraction]98 %MD Ayden Freeman Work Phone: 1([phone])[address]08-30-2022 12:00-0400 Systolic blood mm[Hg]MD Ayden Freeman Work Phone: 1(397)[address]08-30-2022 05:22-0400 Body pwcpik328 kgMD Ayden Freeman Work Phone: 1(349)799-[address] [place], [place] 9862808-29-2022 20:00-0400 Inhaled oxygen esovayeflnjug44 %MD Ayden Freeman Work Phone: 1(856)44959 [address]08-29-2022 14:56-0400 Body aepdwa041.8 cmMD Ayden Freeman Work Phone: 1(549)[address] [place], [place] 5357708-29-2022 08:11-0400 Body neyjevrmeag02 [degF]MD Ayden Freeman Work Phone: 1([phone])[address]08-06-2022 11:59-0400 Diastolic blood oskbjfbl26 mm[Hg]MD Ayden Freeman Work Phone: 1(274)67359 [address]08-06-2022 11:59-0400 Heart rate95 /minMD Ayden Freeman Work Phone: 1(089)60959 [address]08-06-2022 11:59-0400 Respiratory rate18 /minMD Ayden Freeman Work Phone: 1(770)16059 [address]08-06-2022 11:59-0400 SaO2% (BldA) [Mass fraction]95 %MD Ayden Freeman Work Phone: 1(762)42459 [address]08-06-2022 11:59-0400 Systolic blood krolapqz643 mm[Hg]MD Ayden Freeman Work Phone: 1(264)407-[address] [place], [place] 9862808-06-2022 08:07-0400 Body frqnmhvyvur00.8 [degF]MD Ayden Freeman Work Phone: 1(252)96359 [address]08-06-2022 06:00-0400 Body puicph113.5 kgMD Ayden Freeman Work Phone: 1(344)59159 [address]08-04-2022 17:24-0400 Body .8 cmMD yAden Freeman Work Phone: 1(911)[address]08-04-2022 16:00-0400 Inhaled oxygen flow rate1 L/minMD Ayden Freeman Work Phone: [facility] Encounters Encounter DateEncounter TypeCare ProviderFacilityStart: 41-91-7459Kmi-patient / Non-visitAdeyemi Yair [facility] Work Phone: Start: 42-06-2231Vbq-patient / Non-visitLinda Joey [facility] Work Phone: Start: 05-16-2025 End: 83-28-1380Vtnfoetlej and management of inpatientAbdarchie Garza MD[address] Work Phone: Start: 05-03-2025 End: 29-39-4403Rghgvm flowsJermaine Lui DO Work Phone: [facility] EyeStart: 05-03-2025 End: 90-52-6670Doeqil flowsJermaine Simmons Zahlxavier DO Work Phone: [facility] EyeStart: 05-03-2025 End: 43-84-8155czqgklxnwkCUYYIKCO D ZAHLERNot AvailableComment on above:Retinal InjectionStart: 12-83-7672xpridkltviSUGYYV S CRAMERFacility: BellevueStart: 04-25-2025 End: 39-19-0101qapzpfgebbZyxmefa A. MouchliFacility:DerejeIsmael DHStart: 04-25-2025 End: 73-16-8885Puxjwml encounter procedureMochaitanya Stanton [phone]-GoqmaOhio[facility] Start: 03-25-2025 End: 27-18-0316bajhcmocksPjrejc Sue Cramer [employer] Work Phone: [facility] Work Phone: Start: 03-25-2025 End: 16-84-0807Ckfmfrsw ReferredArline Lazar SILVERWARE BUFFER-LAB Path Spec [facility] HospStart: 03-23-2025 End: 11-96-4795Ofpwmw flowsheetJomerly Myershler DO Work Phone: [facility] EyeStart: 03-23-2025 End: 03-41-3460Xhijun flowsheetJonatsilvestre Simmons Zahler DO Work Phone: [facility] EyeStart: 03-23-2025 End: 78-54-3646Znrnvelh SupportJonatsilvestre Myershler DO Work Phone: [facility] [facility] EyeComment on above:Retinal InjectionStart: 03-10-2025 End: 64-59-3837Hjsvfvy encounter procedureSteven A Rusher DPM Work Phone: noms [place] PodiatryComment on above:Diabetic polyneuropathy associated with type 2 diabetes mellitus (HCC) (Primary Dx); Type II diabetes mellitus with peripheral circulatory disorder (HCC); Encounter for long-term (current) use of insulin (HCC)Start: 03-10-2025 End: 94-90-2658gswowjxapbWEJKSC A RUSHERNot AvailableStart: 03-10-2025 End: 49-79-2491Uxewel flowsheetSteven A Rusher DPM Work Phone: noGeneral acute hospital PodiatryStart: 03-10-2025 End: 12-44-4379Vfbsto flowsheetSteven A Rusher DPM Work Phone: noGeneral acute hospital PodiatryStart: 03-08-2025 End: 26-77-4591Aexhci flowsheetJonathan Iris Zahler DO Work Phone: [facility] EyeStart: 03-08-2025 End: 51-24-4308Awqups flowsheetJomerly Myershler DO Work Phone: [facility] EyeStart: 03-08-2025 End: 06-16-0697icmvzdlzzpWOYQJHDA D ZAHLERNot AvailableStart: 03-08-2025 End: 31-70-5029Dxfotk outpatient new 45 minutesSylvia Lui DO Work Phone: [facility] EyeComment on above:Age-related nuclear cataract of both eyes (Primary Dx); 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 Work Phone: Start: 02-25-2025 End: 66-87-0840mszmeujiruEvikbyStoney MOSS Work Phone: [facility] Work Phone: Start: 02-15-2025 End: 45-13-0364Tcnyzm flowsheetSteven A Rusher DPM Work Phone: noms PODIATRYStart: 02-15-2025 End: 14-11-8677Zlpgtg flowsheetSteven A Rusher DPM Work Phone: noms PODIATRYStart: 02-15-2025 End: 02-55-1702Vxzzfy follow up visit related to original pxSteven A Rusher DPM Work Phone: noms PODIATRYComment on above:Diabetic polyneuropathy associated with type 2 diabetes mellitus (HCC) (Primary Dx); Type II diabetes mellitus with peripheral circulatory disorder (HCC); Encounter for long-term (current) use of insulin ([facility])Start: 02-15-2025 End: 41-92-7289dyqloqfddoZEKBKX A RUSHERNot AvailableStart: 01-19-2025 End: 98-54-5588Pwjzfs flowsheetSteven A Rusher DPM Work Phone: noms PODIATRYStart: 01-19-2025 End: 87-09-8016Nuulcm flowsheetSteven A Rusher DPM Work Phone: noms PODIATRYStart: 01-19-2025 End: 79-13-7327Thkmcl outpatient new 30 minutesStevashlyn Burns DPM Work Phone: NOPG PODIATRYComment on above:Dermatophytosis of nail (Primary Dx); Dystrophic nail; Diabetic polyneuropathy associated with type 2 diabetes mellitus ([facility]/HCC); Type II diabetes mellitus with peripheral circulatory disorder ([facility]/HCC); Encounter for long-term (current) use of insulin ([facility])Start: 01-19-2025 End: 28-35-6164cskkhcmgdpVOHCTS A RUSHERNot AvailableStart: 12-27-2024 End: 68-82-9659ilerbsrcezQvqdde Sue Cramer COUNTER ROLLER-C Work Phone: [facility] Work Phone: Start: 12-27-2024 End: 12-53-1075Mxazgqum [facility] HospitalLottie Washington AO-U-Tpwxyhf Center Main [place]Start: 12-17-2024 End: 38-64-6229Brdzmysq [facility] HospitalJnfirelands regional medical center south campusluisa Mcleodland FO-J-Aod-Surgical Testing Work Phone: Start: 12-17-2024 End: 97-41-0268Bxgcage encounter procedurePamora Lazar COUNTER ROLLER-C Work Phone: [facility]-Lhr-Ogktsssa Testing Work Phone: Start: 12-17-2024 End: 76-45-9629aenvgfrnsjJlljfa Sue Cramer COUNTER ROLLER-C Work Phone: [facility] Work Phone: Start: 11-18-2024 End: 84-82-2896dnynacehbyKXBNGerman Hospitaltart: 11-16-2024 End: 80-65-6004Vbsrxle encounter procedurePamora Lazar COUNTER ROLLER-C Work Phone: [facility]-MRI [place] Work Phone: Start: 11-16-2024 End: 15-83-9401kuisneiosrNnaykv Norah MOSS Work Phone: [facility] Work Phone: Start: 10-28-2024 End: 63-69-0740staxeppbyjORBPTrinity Health System East Campustart: 10-28-2024 End: 18-37-3579Fhtkzdgku for other preprocedural examinationEHMercy Health Allen Hospitaltart: 12-19-2022 End: 44-28-7422wbswcjfbsxKQ AYDEN Haney NADERERFacility:Y4Bxaik: 06-05-2022 End: 40-40-3170amtgigugyeAC AYDEN Haney NADERERFacility:T9Yujwg: 05-29-2022 End: 81-21-6725ahjwoomlhzTQ AYDEN Haney NADERERFacility:U8Torfj: 05-17-2022 End: 85-31-6413wsxadnnbanGX CAROL BLACKERFacility:E7Zlcft: 05-03-2022 ambulatoryUNKNOWN PROVIDERFacility:METROHealthStart: 05-01-2022 End: 58-41-8915wxqrrmkgrlMJLDHFM PROVIDERFacility:METROHealthStart: 05-01-2022 End: 51-73-9792wwiofiwaniHi6 ResourceMetroHealth Emergency Triage, Treat and TransportStart: 05-01-2022 End: 09-96-4296Sqxqlqyom department patient visitEt3 ResourceMetroHealth Emergency Triage, Treat and TransportComment on above:ArrivedStart: 04-24-2022 End: 74-43-4732jdiqcljhzcQMQHWVQ PROVIDERFacility:METROHealthStart: 04-12-2022 End: 98-31-6932Lsfnpnrda department patient visitMD Ayden Freeman Work Phone: [facility]-Emergency RoomStart: 04-10-2022 End: 98-15-3363rphfizqttsDANYFPH PROVIDERFacility:METROHealthStart: 04-02-2022 End: 41-19-4299Scpcqkxmyq and management of inpatientMD Ayden Freeman Work Phone: [facility]-[address] Med SurgStart: 78-09-0895lmadgjlpwjUR AYDEN Haney NADERERFacility:V7Cmagk: 03-14-2022 End: 36-13-1348Mxaitow encounter procedureJEFF CARLOS 383-8900Yxthqu-XmafmCommunity Regional Medical Center Medicine [facility] Start: 03-14-2022 End: 20-70-0809Efgttikwzo and management of inpatientMD Ayden Freeman Work Phone: [facility]-[address] Med SurgStart: 87-49-7181yfuesymmglOH AYDEN Haney NADERERFacility:D4Glsrh: 02-01-2022 End: 88-94-4268cmzuvxclsxBLGQO CHIKIS .Facility:F1Wpvrf: 01-24-2022 End: 54-92-8419lamjuxwcruTZ CAROL YIPFacility:B5Nhywb: 01-18-2022 End: 32-91-5222ydnwnebrqiHR MASON NEALFacility:H1 Procedures DateProcedureProcedure DetailPerforming ClinicianStart: 61-80-0602Ulgwqwdfiyvl njx pharmacologic agt spxJonathan D Zahler DO Work Phone: Start: 68-43-3801Ihastwwisvrq njx pharmacologic agt spxJonathan D Zahler DO Work Phone: Start: 57-65-9695Wfldcmsmusto ophthalmic imaging retinaJonathan D Zahler DO Work Phone: Start: 53-57-5045Ffufv Nicolle MOSS Work Phone: Start: 50-85-6285Puoctraejaye njx pharmacologic agt spxJonathan D Zahler DO Work Phone: Start: 25-69-2256Llaqnuwskkci ophthalmic imaging retinaJonathan D Zahler DO Work Phone: Start: 24-15-4606Ntuhvjflgmjm axial tomography of lumbar spine with contrastArline Lazar COUNTER ROLLER-C Work Phone: Start: 63-16-3454LhkdxlgtpUpkczk Cramer COUNTER ROLLER-C Work Phone: Start: 76-01-7604IOT screeningDR AYDEN LLOYDRComment on above:Performed By: #### PSASC #### [facility] [address] [place] [address] Dr. Pickering ChangStart: 99-14-1685Soexm chest X-rayMD Ayden Freeman Work Phone: Start: 33-47-1664LU angiography of thoraxMD Ayden Freeman Work Phone: Start: 04-02-2022 End: 51-06-8862Hpelp chest X-rayMD Ayden Freeman Work Phone: Start: 33-21-5061Yvzvz X-ray of left hipMD Ayden Freeman Work Phone: Start: 51-89-1069Akbwd X-ray of left elbowMD Ayden Freeman Work Phone: Start: 05-44-3952Ocrss chest X-rayMD Ayden Freeman Work Phone: Blood culture for bacteria, including anaerobic screen MD Ayden Freeman Work Phone: Cardiac catheterizationMohamad Mouchli CholecystectomyMohamad Mouchli ColonoscopyMohamad Mouchli History of nasal sinus surgeryMohamad Mouchli Refusal of treatment by patientRefusal of treatmentEt3 ResourceSARS Antigen (LFIA)MD Ayden rFeeman Work Phone: Plan of Treatment DateCare ActivityDetailAuthorStart: 06-06-2025 End: 18-15-9467Clqvwicg Lgjhdtc09/ 2:00 PM EDT Clinical Support [facility] [address] [id number] Sylvia Lui, DO [address] [place] [address] [facility] EyeStart: 13-45-3432FytauegmcGenesis Hospitaltart: 80-57-9463Wmwleuvb to clinical allergistGenesis Hospitaltart: 40-24-0260VeqvgqvasGenesis Hospitaltart: 72-40-4552Alwstrlq admissionGenesis Hospitaltart: 05-16-2025 [facility]: 05-03-2025 End: 53-93-9000Ooyzrcvr Edybdxx1305/03/2025 2:00 PM EDT Clinical Support [facility] [address] [facility] MEDICAL CENTERDonny [id number] Sylvia Lui, DO [address] [place] [address] ArrivedNOParkwood Behavioral Health System EyeComment on above:Arrived Start: 04-21-2025 End: 57-45-4354Pbvtvkf encounter procedureNOFREEMAN HEALTH SYSTEM PODIATRYStart: 04-05-2025 End: 85-62-3444Ydtzhzo encounter krlxusbwd04/26/2025 3:15 PM EDT Office Visit [facility] [address] [place] [id number] Carol Burns DPM [address] [place] [address] [facility] PodiatryStart: 86-73-2273Extmb Memorial Hospitaltart: 04-49-4106Hodrycht identified in Urine by CultureUrine [facility] Jacksontart: 03-11-2025 End: 01-92-5745Rufamapq Lucylvn8403/11/2025 10:45 AM EDT Clinical Support [facility] [address] [place] [phone] Sylvia Lui, DO [address] [place] [address] [facility] EyeStart: 03-10-2025 End: 21-49-1486Lkqispe encounter procedureNOGeneral acute hospital PodiatryComment on above: ArrivedStart: 03-01-2025 End: 44-67-2810Rpjseor encounter tnouzqggu67/22/2025 1:30 PM EDT Office Visit [facility] [address] [place] [phone] Sylvia Lui, DO [address] [place] [address] [facility] OPHTStart: 70-50-5141XsjzaibuuGenesis Hospitaltart: 01-19-2025 End: 96-82-7572Pqqaeso encounter riwakccdu77/11/2025 10:45 AM EDT Office Visit [facility] [address] [place] [phone] Carol Burns, DPM [address] [place] [address] ArrivedMULTICARE AUBURN MEDICAL CENTER PODIATRYComment on above:ArrivedStart: 70-40-0376YW CAT/MRI W/ IV SEDATION (Not Applicable)OR CAT/MRI W/ IV SEDATION (Not Applicable) [facility] Hospitaltart: 82-12-0267Qevpumlt screeningDiabetes: Retinopathy ScreeningJORDAN VALLEY [facility] HealthcareStart: 03-29-5328Roteougrm vaccination Influenza Vaccine (#1)MetroHealthStart: 11-21-3119Bqmvc chest X-rayXR chest 2V* [facility]tart: 04-12-2022 End: 73-74-7837Qznpwmjuw department patient visitDeparted EmergencyK[facility]-Emergency RoomStart: 75-41-9617XbwktyqupKettering Health – [facility] Medical Center Work Phone: Start: 69-49-4250CsvslokugKettering Health – [facility] Medical Center Work Phone: Start: 04-02-2022 End: 48-94-2657Vwmfyggruj and management of inpatientAbrasion of elbowKettering Health [facility] Center-[address] Med SurgStart: 34-11-6951RZ angiography of thoraxCT angio chest PE protocolMercy Health Fairfield Hospital CenterStart: 04-02-2022 Hospital admissionK[facility] Work Phone: Start: 39-17-8044I-ray of left kneeXR knee LT 2V [facility]art: 45-48-6663Knpod chest X-rayXR chest 1V portableGenesis Hospitaltart: 70-13-4414Ycjzu X-ray of left hipXR hip LT min 2V(w/wo pelvis)*[facility] Hospitaltart: 87-89-3350Vdsri X-ray of left elbowXR elbow LT min 3V*[facility] CenterStart: 30-15-5097WnvucvlzrKettering Health – Soin Medical Center Work Phone: Start: 84-05-0916Oqbfpeer to nephrologistKettering Health – [facility] Center Work Phone: Start: 89-46-3484Qhzkcnfs admissionKettering Health – Soin Medical Center Work Phone: Start: 55-82-7385Rwqxbtr to Medicare Visit (G0402) Welcome to Medicare Visit (G0402)MetroHealthStart: 00-78-5258Eurmwaxerxp of occult blood in single stool specimenFITMetroHealthStart: 24-49-4535Afkbuxikg for malignant neoplasm of colonCRC ScreeningMetroHealthStart: 39-43-4475Ozitmxsg (RZV) Vaccine (1 of 2)Shingles (RZV) Vaccine (1 of 2)MetroHealthStart: 79-11-8879Dthwn panelCholesterolMetroHealthStart: 34-96-0635Uxjry screening for proteinDiabetes: Urine Protein ScreeningNONV HealthcareStart: 11-28-1975 Hepatitis C screeningHepatitis C AntibodyMetroHealthStart: 44-48-0347Wphijdu + diphtheria + acellular pertussis vaccine (product)Tdap BoosterMetroHealthStart: 59-94-9029KKC screeningHIV TestMetroHealthStart: 17-03-7994KVFDR-19 Vaccine (#1) COVID-19 Vaccine (#1)MetroHealthStart: 53-52-1000Vlufirmcob A1c measurement Diabetes: Hemoglobin R3UBPKH HealthcareStart: 04-19-1958Medicare Annual Wellness (AWV)Medicare Annual Wellness (AWV)[facility] HealthcareStart: 38-88-6275Brgtjazro for malignant neoplasm of colonMetroHealthPatient EducationMercy Health Fairfield Hospital Ctr Work Phone: Patient referralMercy Health Fairfield Hospital Ctr Work Phone: [facility] Immunizations Immunization DateImmunizationNotesCare NewoxhheIphjjepn64-99-3754hiiizasoc, high dose seasonal, preservative-freePamela Cady COUNTER ROLLER-C Work Phone: [facility]10-02-2024influenza, high dose seasonal, preservative-freeSteven Rusher DPM Work Phone: [facility] CenterVwodrcixxv06-41-6011Kkxbjrwzq, Seasonal, Quadrivalent, AdjuvantedSteven Rusher DPM Work Phone: [facility] CenterIohxnlhsyl31-03-2819Pfxsfnlyyosz Conjugate PCV 20 Carol Rusher DPM Work Phone: [facility] CenterRiuaudgbxa73-77-2710Tjudfafb, quadrivalent, recombinant, injectable influenza vaccine, preservative freeSteven Rusher DPM Work Phone: [facility] CenterGpuflcdgmt93-76-4803Abgaedit, quadrivalent, recombinant, injectable influenza vaccine, preservative freeSteven Rusher DPM Work Phone: [facility] CenterAjrbwlrazp01-81-4204eetojptts, seasonal, injectable, preservative Eric Burns DPM Work Phone: NONV Healthcare Payers DatePayer CategoryPayerPolicy [id number] 2025Medicare (Managed Care)[employer] Member Subscriber Plan / Payer (Effective 2024-Present) Name: Evelin Patterson Relation to Subscriber: Self Name: Evelin Patterson Payer ID: Not on file Group ID: [id number] Type: Not on file Address: [place] [id number] 2022Medicare [id number] Health Insurance [id number] 2021Medicaid [id number] [id number] [id number] [id number] .16.840.1.867649.3.579.2.732 [id number] 2.16.840.1.636614.3.579.2.10590-27-1308Viijjiw [id number] 2.16.840.1.505179.3.57[id number] 2.16.840.1.663076.3.57[id number] 2.16.840.1.243362.3.579.[id number] 2.16.840.1.070447.3.57[id number] 2.16.840.1.223658.3.579.2.56111-84-1290Wusdnxy1900330 2.16.840.1.948008.3.57[id number] 2.16.840.1.004272.3.579.2.96285-14-3538Brcfagv3989285 2.16.840.1.563051.3.57[id number] 2.16.840.1.690902.3.579.[id number] 2.16.840.1.119820.3.579.2.74529-35-2624Cgifhct1459964 2.16.840.1.526839.3.579.2.[id number] 2.16.840.1.910076.3.57[id number] 2.16.840.1.503910.3.579.2.[id number] 2..1.400139.3.57[id number] 2..1.413171.3.579.[id number] 2..1.568004.3.579.2.270341-43-1274Xzkvstr85397520 2..1.744369.3.57[id number] 2..1.155140.3.579.[id number] 2..1.976[id number] [facility] [id number] Elite [id number] Care Center [id number]-[id number] 2..1.545265.3.579.2.764Ygtrylr19734237 2..1.780391.3.579.2.531 [id number] 2..1.1[id number] 2..1.132106.3.579.2.689Ebpjdsg17054250 2..1.371156.3.579.2.531 Coiggvv16047422 2..1.493112.3.579.2.531 Social History DateTypeDetailFacilityTobacco smoking statusNo Smoking Status EnteredMercy Health St[facility] Start: 10-01-2023 End: 57-93-6329Yvv Assigned At [facility] Start: 04-02-2022 End: 80-50-2357Kobaufl smoking status NHISNever smoked tobacco (finding) [facility]: 56-07-0787Vvv Assigned At [facility] HospitalTobacco smoking status NHISTobacco smoking consumption unknownMetroHealthStart: 55-41-7462Ijj Assigned At BirthNot on file MetroHealthStart: 11-22-2009 End: 96-39-3240GshUwcl (finding)[facility] Hospitaltart: 09-14-2023 End: 41-73-5148Lvmdteh use and exposureSmokeless tobacco non-userNOMS Healthcare Start: 10-01-2023 End: 96-78-5709Onsxpsvhp beverage intakeLifetime non-drinker (finding)[facility] HealthcareStart: 10-01-2023 End: 64-90-4035Awsvjqa of Social functionNOMS HealthcareStart: 93-42-7201Hhjwefn Commentcaffeine intake : more than 4 cups per dayNONV HealthcareTobacco smoking statusOhiohealth Mansfield Hospital Digest[facility] NEGATED: Highlighted rowStart: NINFHistory of tobacco usePassive smokerNONV Healthcare Medical Equipment Procedure CodeEquipment CodeEquipment Original TextEquipment IdentifierDates Lancets-Blood Glucose Strips (Gojji Lancet-Glucose Test Strp) 30 gauge Combo PackStart: 03-16-2022 End: 32-78-6545Buv Needle, Diabetic (Pentips) 29 gauge x 1/2 NeedleStart: 03-16-2022 End: 10-07-4092Hizwnyb-Blood Glucose Strips (Gojji Lancet-Glucose Test Strp) 30 gauge Combo PackStart: 03-16-2022 End: 58-60-2409Mur Needle, Diabetic (Pentips) 29 gauge x 1/2 NeedleStart: 03-16-2022 End: 81-81-0368Cenbzvq-Blood Glucose Strips (Gojji Lancet-Glucose Test Strp) 30 gauge Combo PackStart: 03-16-2022 End: 97-52-5344Bwz Needle, Diabetic (Pentips) 29 gauge x 1/2 NeedleStart: 03-16-2022 End: 96-76-9483Hkanxxt-Blood Glucose Strips (Gojji Lancet-Glucose Test Strp) 30 gauge Combo PackStart: 03-16-2022 End: 14-67-5773Zkd Needle, Diabetic (Pentips) 29 gauge x 1/2 NeedleStart: 03-16-2022 End: 96-85-9499Lulmlwy-Blood Glucose Strips (Gojji Lancet-Glucose Test Strp) 30 gauge Combo PackStart: 03-16-2022 End: 99-56-8793Qft Needle, Diabetic (Pentips) 29 gauge x 1/2 NeedleStart: 03-16-2022 End: 41-08-0841Osifqfq-Blood Glucose Strips (Gojji Lancet-Glucose Test Strp) 30 gauge Combo PackStart: 03-16-2022 End: 58-98-8663Cut Needle, Diabetic (Pentips Pen Needle) 29 gauge x 1/2 Needle Start: 03-16-2022 End: 49-89-6991Otuawsc-Blood Glucose Strips (Gojji Lancet-Glucose Test Strp) 30 gauge Combo PackStart: 03-16-2022 End: 51-82-5100Rdq Needle, Diabetic (Pentips Pen Needle) 29 gauge x 1/2 Needle Start: 03-16-2022 End: 15-17-8027GTM 1 EACH DAY [id number]: 96-85-9626Pmjzzwt-Blood Glucose Strips (Gojji Lancet-Glucose Test Strp) 30 gauge Combo PackStart: 03-16-2022 End: 27-04-2540Bce Needle, Diabetic (Pentips Pen Needle) 29 gauge x 1/2 Needle Start: 03-16-2022 End: 17-29-0842Msiamgh-Blood Glucose Strips (Gojji Lancet-Glucose Test Strp) 30 gauge Combo PackStart: 03-16-2022 End: 67-53-0191Pwa Needle, Diabetic (Pentips Pen Needle) 29 gauge x 1/2 Needle Start: 03-16-2022 End: 77-70-1477Ymonbxb-Blood Glucose Strips (Gojji Lancet-Glucose Test Strp) 30 gauge Combo PackStart: 03-16-2022 End: 62-99-5593Fbv Needle, Diabetic (Pentips Pen Needle) 29 gauge x 1/2 Needle Start: 03-16-2022 End: 64-29-2541Jokwhze-Blood Glucose Strips (Gojji Lancet-Glucose Test Strp) 30 gauge Combo PackStart: 03-16-2022 End: 97-57-2965Rjh Needle, Diabetic (Pentips Pen Needle) 29 gauge x 1/2 Needle Start: 03-16-2022 End: 94-96-2410Hsjsgoa-Blood Glucose Strips (Gojji Lancet-Glucose Test Strp) 30 gauge Combo PackStart: 03-16-2022 End: 06-66-4696Icv Needle, Diabetic (Pentips Pen Needle) 29 gauge x 1/2 Needle Start: 03-16-2022 End: 04-09-2022 Goals DatePatient GoalDesired Activity/State Functional Status NsaiHzvmtlxjjaMcazcoMyygtrjj43-18-6669Mxrqpsegwr status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gressing Toward BaselineK[facility] Work Phone: [phone]zzyfcisdy statusPatient at Baseline [facility] Work Phone: Mental Status ZbmfRddgyymixlQealziTirbifcr56-64-9660Orvxepzto functionCognitive Status Patient at BaselineK[facility] Work Phone: 1(985) [phone]shqlfxko functionCognitive Status Patient at BaselineKettering Health [facility] Work Phone: Clinical Notes 2021 to 05-16-2025 Note Date & FiacFbejNixsmcjc56-89-8295 Evaluation note* Diagnosis Onset Date Resolution Status Admit Date CHF (congestive heart failure) acuteOctober 2024 1:26pmChronic kidney disease, stage III (moderate)acute May 16, 2025 1:26pmHypertensionacuteOctober 2024 1:26pmMajor depressive disorderacuteOctober 2024 1:26pmObstructive sleep apneaacute May 16, 2025 1:26pmParoxysmal A-fibacuteOctober 2024 1:26pmSuicidal ideationsacuteOctober 2024 1:26pm [facility] Work Phone: 1(744) 709-149909-25-2025 NoteRight Eye Quality was good. Scan locations included subfoveal. Progression has worsened. Findings include abnormal foveal contour, intraretinal fluid. Left Eye Quality was good. Scan locations included subfoveal. Progression has been stable. Findings include abnormal foveal contour, intraretinal fluid.[facility] CenterGxvvcheuim80-39-0851 NoteTime Out 05/03/2025. 3:21 PM. Confirmed correct patient, procedure, site, and patient consented. Anesthesia Topical anesthesia was used. Anesthetic medications included Lidocaine 2%, Proparacaine 0.5%. Procedure Preparation included 5% betadine to ocular surface, eyelid speculum. A 30 gauge needle was used. Injection: 1.25 mg Bevacizumab 1.25 MG/0.05ML Route: Intravitreal, Site: Right [facility] [address]-0, Lot: [id number], Expiration date: 06/28/2025 Post-op Post injection exam [...] increased pain, redness, decreased vision or concerns. [facility] [id number] NoteTime Out 05/03/2025. 3:17 PM. Confirmed correct patient, procedure, site, and patient consented. Anesthesia Topical anesthesia was used. Anesthetic medications included Lidocaine 2%, Proparacaine 0.5%. Procedure Preparation included 5% betadine to ocular surface, eyelid speculum. Injection: 1.25 mg Bevacizumab 1.25 MG/0.05ML Route: Intravitreal, Site: Left Eye [facility]: [address]-5, Lot: [id number], Expiration date: 06/28/2025 Post-op Post injection exam [...] with increased pain, redness, decreased vision or concerns.[facility] [id number] History of Present illness Narrative* Syliva Lui, DO - 05/03/2025 2:00 PM EDT [...] 1.25 MG/0.05ML Route: Intravitreal, Site: Left Eye [facility]: [address]-8, Lot: [id number], Expiration date: 06/28/2025 Post-op Post injection exam [...] 1.25 MG/0.05ML Route: Intravitreal, Site: Right Eye [facility]: [address]-7, Lot: [id number], Expiration date: 06/28/2025 Post-op Post injection exam [...] decreased vision or concerns. documented in this encounterN[facility] [id number] NoteTime Out 03/23/2025. 2:18 PM. Confirmed correct patient, procedure, site, and patient consented. Anesthesia Topical anesthesia was used. Anesthetic medications included Lidocaine 2%, Proparacaine 0.5%. Procedure Preparation included 5% betadine to ocular surface, eyelid speculum. A 30 gauge needle was used. Injection: 1.25 mg Bevacizumab 1.25 MG/0.05ML Route: Intravitreal, Site: Right Eye [facility]: [address]-4, Lot: [id number], Expiration date: 04/18/2025 Post-op Post injection exam [...] increased pain, redness, decreased vision or concerns. [facility] CenterXsdqmfvytm07-49-1182 History of Present illness Narrative* Sylvia Lui, [...] 1.25 MG/0.05ML Route: Intravitreal, Site: Right Eye [facility]: [address]-7, Lot: [id number], Expiration date: 04/18/2025 Post-op Post injection exam [...] decreased vision or concerns. documented in this encounterNortheast [facility] Medical [id number] History of Present illness Narrative* Carol Burns [...] MINI PEN NEEDLES) 31G x 5 mm [facility] [place] 1 EACH DAY DIRECTED, Disp:100 each, [...] understanding. Carol Burns DPM documented in this [facility]07-31-2025 Instructions* Patient Instructions* Carol Burns DPM - 03/10/2025 4:00 PM EDT Acclimating instructions as noted documented in this [facility]07-29-2025 NoteRight Eye Quality was good. Scan locations included subfoveal. Progression has worsened. Findings include abnormal foveal contour, intraretinal fluid, subretinal fluid. Left Eye Quality was good. Scan locations included subfoveal. Progression has worsened. Findings include abnormal foveal contour, intraretinal fluid, subretinal fluid.[facility] [id number] History of Present illness Narrative * Sylvia [...] Will start with Avastin. documented in this encounterNortheast Regional Medical CenterDcqbvuvaie21-95-9043 History of Present illness Narrative* Carol Burns [...] Measurements obtained in the weight-bearing position utilizing Air Roboticsnock device. Patient education and counseling relative to [...] understanding. Carol Burns DPM documented in this [facility]07-08-2025 Instructions* Patient Instructions* Carol Burns DPM - 02/15/2025 1:00 PM EDT As noted documented in this [facility]06-11-2025 History of Present illness Narrative* Carol [...] understanding. Carol Burns DPM documented in this [facility]06-11-2025 Instructions* Patient Instructions* Carol Burns DPM - 01/19/2025 10:45 AM EDT As noted documented in this [facility]03-20-[facility] Chief Complaint: New patient here to re-establish care. He had heart cath back in 2009 at [facility]. He was diagnosed with afib in [...] until further cardiovascular testing can be completed. Babr Hays MD, MPH, [facility], [facility], [facility] Interventional Cardiology Pager Email: [email or web address] History of Present illness Narrative* Peter Molina, - 05/03/2022 9:41 AM EDT Images from the original note were not included. EMERGENCY TRIAGE, TREAT AND TRANSPORT (ET3) DOCUMENTATION OF TELEHEALTH VISIT Date / Time: 05/01/2022 / 0600 Name: Evelin Patterson : 1955 SSN: [id number] EMS Agency: [facility] [x] Verbal consent obtained [...] by: Peter Molina DO documented in this [id number] Progress note Author Lupe Hernandez [facility] April 08, 2022 1:38pmNote Date/TimeAugust 2021 1:38pm[place] [address] Hospitalist Progress Note Signed Patient: Evelin Patterson MR#: [id number] : 1955 Acct:[id number] Age/Sex: 66 / M Adm Date: 2 Loc: 3T Room: [address] [place] [address] Type: ADM INOo Attending Dr: Lupe Hernandez [...] Hypothyroidism: Plan Patient currently awaiting placement to senior living facility. Remains in normal sinus rhythm. He [...] <Electronically signed by Lupe Hernandez MD> 04/08/221337 [facility] Work Phone: [phone]) 951-442908-28-2022 Discharge summary Author Luke Moran [facility] [place] 28th, 2022 4:16pmNote Date/TimeAugust 2021 10:05[place] [address] Discharge Summary Signed with Addenda Patient: Evelin Patterson MR#: [id number] : 1955 Acct:[id number] Age/Sex: 66 / M Adm Date: 2 Loc: Room: [address] [place] [address]: Luke Moran MD Copies to: [...] discharged home in stable condition to a senior living facility. Medical therapy was adjusted as noted [...] 10:24: POC Glucose 271 04/03/22 07:34: Free Oronoque LC, Quant 93.9 H, Free Lambda LC, Quant 61.6 H, Free Oronoque/Lambda Ratio 1.52 Exam Physical Exam Vital Signs: Temp Pulse Resp BP Pulse Ox O2 Del Method O2 Flow Rate 97.9 F 85 20 134/76 90 L Room Air 2 04/05/22 08:00 04/05/22 08:00 04/05/22 08:00 04/05/22 08:00 04/05/22 08:00 04/05/22 08:00 04/05/22 08:00 FiO2 30 04/04/22 22:34 Discharge Plan Discharge Plan Patient Disposition: [facility] Facility Activity: Ambulate as Tolerated Diet: Diabetic and Low-Sodium Additional Instructions: Please have company providing CPAP machine fit the patient with a mask that he can tolerate. Use a CPAP of 8 whenever asleep until the sleep study performed. [facility] Facility to manage care: - Full code [...] Instructions: Sliding Scale ACHS Other Ambulatory Orders: PALLET STONE INSERTER polysom procedure (Routine) Timeframe: 3 Weeks Location: Determined by Patient Ordered By: Luke Moran Follow Up: [facility] Sleep Lab [Outside] ([facility] or Central Scheduling will call you to arrange date/time for sleep study. ) Documented By: Luke Moran MD 04/07/22 0997 Signed By: <Electronically signed by Luke Moran MD> 04/07/22 3623 [facility] Work Phone: 1(705) 644-592108-27-2022 Progress note Author Luke Moran [facility] April 06, 2022 2:50pmNote Date/TimeAugust 2021 2:50pmM[place] [address] Hospitalist Progress Note Signed Patient: Evelin Patterson MR#: [id number] : 1955 Acct:[id number] Age/Sex: 66 / M Adm Date: 2 Loc: 3T Room: [address] [place] [address] Type: ADM INOo Attending Dr: Luke Moran [...] signed by Luke Moran MD> 04/06/22 1450 [facility] Work Phone: 1(451) 755-947808-25-2022 Progress note Author Luke Moran [facility] April 04, 2022 4:25pmNote Date/TimeAugust 2021 4:25pmM[place] [address] Hospitalist Progress Note Signed Patient: Evelin Patterson MR#: [id number] : 1955 Acct:[id number] Age/Sex: 66 / M Adm Date: 2 Loc: Room: [address] [place] [address] Type: ADM INOo Attending Dr: Luke Moran [...] <Electronically signed by Luke Moran MD> 04/04/22 9172 [facility] Work Phone: 1(357) 584-306008-24-2022 Progress note Author Luke Moran [facility] April 03, 2022 2:05pmNote Date/TimeAugust 2021 2:05pmM[place] [address] Hospitalist Progress Note Signed Patient: Evelin Patterson MR#: [id number] : 1955 Acct:[id number] Age/Sex: 66 / M Adm Date: 2 Loc: Room: [address] [place] [address] Type: ADM INOo Attending Dr: Luke Moran [...] signed by Luke Moran MD> 04/03/22 1408 [facility] Work Phone: 1(311) 360-586208-23-2022 History and physical note Author Luke Moran [facility] April 02, 2022 7:48pmNote Date/TimeAugust 2021 7:[address] [address] Hospitalist H&P Signed Patient: Evelin Patterson MR#: [id number] : 1955 Acct:[id number] Age/Sex: 66 / M Adm Date: 2 Loc: ER Room: [facility] Attending Dr: Copies to: MD [...] History Comments: Lives in [facility] in [facility] Medications and Allergies Allergies metformin Adverse [...] % (Auto) 8.7 % (.) 04/02/22 17:51 Bell % (Auto) 12.2 % (.) 04/02/22 17:51 Eos % (Auto) 2.4 % (.) 04/02/22 17:51 Baso % (Auto) 0.6 % (.) 04/02/22 17:51 Neut # (Auto) 6.4 x10E3/uL (1.8-7.7) 04/02/22 17:51 Lymph # (Auto) 0.7 x10E3/uL (1.00-4.8) L 04/02/22 17:51 Bell # (Auto) 1.0 x10E3/uL (0.0-0.8) H 04/02/22 [...] <Electronically signed by Luke Moran MD> 04/02/221947 [facility] Work Phone: 1(252) 570-637408-06-2022 Discharge summary Author Xin Phan [facility] March 16, 2022 9:37amNote Date/TimeAugust 2021 9:37[place] [address] Discharge Summary Signed Patient: Evelin Patterson MR#: [id number] : 1955 Acct:[id number] Age/Sex: 66 / M Adm Date: 2 Loc: Room: [address] [place] [address]: Xin Phan MD Copies to: [...] anxiety and depression who was transferred from [facility] for acute kidney injury.? Patient presented with generalized weakness anddisorientation at [facility]. He was noted to have [...] headache or dizziness.? No fevers Paperwork from [facility] reviewed, chest x-ray with no acute cardiopulmonary process.? Sodium 129.?Potassium 3.3.? Creatinine 2.52.? WBC 6.8.? Hemoglobin 12.5.? Glucose 4.34.? Patient will be admitted by the hospitalist team for further evaluation and management. Patient was positive for COVID, patient was alert oriented x3 at [facility],patient states that he has been having [...] untreated sleep apnea Instructions: Blood Glucose Monitoring, [facility] COVID-19 Discharge Instructions Prescriptions: New Levemir FlexTouch [...] signed by Xin Phan MD> 03/16/22 0937 [facility] Work Phone: 1(491) 359-460508-05-2022 Progress note Author Sarah [facility] March 15, 2022 3:43pmNote Date/TimeAugust 2021 3:37pmM[place] [address] Nephrology Progress Note Signed Patient: Evelin Patterson MR#: [id number] : 1955 Acct:[id number] Age/Sex: 66 / M Adm Date: 2 Loc: Room: [address] [place] [address] Type: ADM IN Attending Dr: Xin Phan MD Copies to: ~ Date of Service: 03/15/2022 Subjective Subjective Narrative: This is 66-year-old male patient with a past medical history of morbid obesity, endocarditis, paroxysmal A. fib, diabetes type 2, anxiety and depression and chronic kidney disease stage III. Patient presented to [facility] with feeling weak and disoriented for 2 weeks which has gotten worse. Patient has been having cough with decreased appetite and loss of taste for a week. Lab at [facility] shows acute kidney injury with creatinine up to 4.3 mg/dL along with hyperglycemia with initial blood glucose level more than 400. Patient's blood pressure was in the 80s at [facility]. Patient was given IV fluid and [...] Tablet) 500 mg PO DAILY [facility] Stop: 03/14/23 08:59 Last Admin: 03/15/22 08:34 Dose: 500 mg Dexamethasone 2 mg/ (Dexamethasone 4 mg) 6 mg PO DAILY [facility] Stop: 03/22/23 08:59 Last Admin: [...] Vial) 5,000 unit SUBCUT Q12HR [facility] Stop: 03/14/23 08:59 Last Admin: 03/15/22 08:34 Dose: 5,000 unit Sodium Chloride (0.9% Sodium Chloride 1,000 Ml) 1,000 mls @ 100 mls/hr IV .[id number] Stop: 03/14/23 01:59 Last Admin: 03/15/22 06:46 Dose: 100 mls/hr Insulin Aspart (Insulin Aspart 300 Units/3 Ml Insuln.Pen) 0 units SUBCUT TID.WM.HS [facility]; Protocol Stop: 03/14/23 07:59 Last Admin: 03/15/22 12:06 Dose: 9 units Insulin Detemir (Insulin Detemir 300 Units/3 Ml Insuln.Pen) 40 units SUBCUT DAILY.WITH.BKFAST [facility] Stop: 03/16/23 07:59 Zinc Sulfate (Zinc Sulfate 220 Mg Capsule) 220 mg PO DAILY [facility] Stop: 03/14/23 08:59 Last Admin: [...] question Documented By: Sarah Osuna MD 03/15/22 1531 Signed By: <Electronically signed by Sarah Osuna MD> 03/15/22 1549 [facility] Work Phone: 1(770) 987-197108-05-2022 Progress note Author Xin Phan [facility] March 15, 2022 12:44pmNote Date/TimeAugust 2021 12:44pmM[place] [address] Hospitalist Progress Note Signed Patient: Evelin Patterson MR#: [id number] : 1955 Acct:[id number] Age/Sex: 66 / M Adm Date: 2 Loc: Room: [address] [place] [address] Type: ADM IN Attending Dr: Xin Phan MD Copies to: ~ Date of Service: 03/15/2022 Subjective Subjective Narrative: Patient is a 66-year-old male, with a PMHx of Morbid obesity, endocarditis in August of this year,atrial fibrillation, type 2 diabetes, hypertension, liver cirrhosis, anxiety and depression who wastransferred from [facility] for acute kidney injury. Patient presented with generalized weakness anddisorientation at [facility]. He was noted to have [...] secondary to poor oral intake. Presented at [facility] with low blood pressures in the 80s. ?Creatinine at [facility] 4.34. Baseline creatinine ~1.4 - [...] noncompliance to diabetic diet ?Blood sugar at [facility] was in the 400s ? [...] <Electronically signed by Xin Phan MD> 03/15/22 5557 [facility] Work Phone: 1(244) 942-266008-04-2022 Progress note Author Renato Looney [facility] March 14, 2022 2:14pmNote Date/TimeAugust 2021 2:14pm[place] [address] Progress Note Signed Patient: Evelin Patterson MR#: [id number] : 1955 Acct:[id number] Age/Sex: 66 / M Adm Date: 2 Loc: Room: [address] [place] [address] Type: ADM IN Attending Dr: Renato Looney MD Copies to: ~ Date of Service: 03/14/2022 Progress Narrative Note PROGRESS NOTE Progress Note: Patient seen and evaluated by road design draftsperson early this morning and also by myself. Briefly, patient is a 66-year-old male past medical history significant for obesity, atrial fibrillation, hypertension, diabetes, liver cirrhosis, mood disorder and recent endocarditis infection who presented to outlying facility due to generalized weakness found to have COVID-19 and acute kidney injury and was transferred to [facility] for further evaluation and management. 1. [...] Renato Looney MD> 03/14/22 1414 [facility] Work Phone: 1(159) 514-246308-04-2022 Consult note Author Sarah Osuna [facility] March 14, 2022 12:30pmNote Date/TimeAugust 2021 12:30pmMik[place] [address] Nephrology Consult Note Signed Patient: Evelin Patterson MR#: [id number] : 1955 Acct:[id number] Age/Sex: 66 / M Adm Date: 2 Loc: Room: [address] [place] [address] Type: ADM IN Attending Dr: eRnato Looney MD Copies to: MD Renato Engel [...] kidney disease stage III. Patient presented to [facility] with feeling weak and disoriented for 2 weeks which has gotten worse. Patient has been having cough with decreased appetite and loss of taste for a week. Lab at [facility] shows acute kidney injury with creatinine up to 4.3 mg/dL along with hyperglycemia with initial blood glucose level more than 400. Patient's blood pressure was in the 80s at [facility]. Patient was given IV fluid and [...] History Comments: Lives in [facility] in [facility] Medications & Allergies Allergies metformin Adverse [...] Tablet) 500 mg PO DAILY [facility] Stop: 03/14/23 08:59 Last Admin: 03/14/22 08:34 Dose: 500 mg Dexamethasone 2 mg/ (Dexamethasone 4 mg) 6 mg PO DAILY [facility] Stop: 03/22/23 08:59 Last Admin: [...] Vial) 5,000 unit SUBCUT Q12HR [facility] Stop: 03/14/23 08:59 Last Admin: 03/14/22 08:39 Dose: 5,000 unit Sodium Chloride (0.9% Sodium Chloride 1,000 Ml) 1,000 mls @ 100 mls/hr IV .[id number] Stop: 03/14/23 01:59 Last Admin: 03/14/22 03:26 Dose: 100 mls/hr Insulin Aspart (Insulin Aspart 300 Units/3 Ml Insuln.Pen) 0 units SUBCUT TID.WM.HS [facility]; Protocol Stop: 03/14/23 07:59 Last Admin: 03/14/22 12:06 Dose: Not Given Insulin Detemir (Insulin Detemir 300 Units/3 Ml Insuln.Pen) 35 units SUBCUT DAILY.WITH.BKFAST [facility] Stop: 03/14/23 07:59 Last Admin: 03/14/22 08:34 Dose: 35 units Zinc Sulfate (Zinc Sulfate 220 Mg Capsule) 220 mg PO DAILY [facility] Stop: 03/14/23 08:59 Last Admin: [...] Michael Tinajero M.D.03/14/2022 8:24 AM Dictation Location: [place] [address] Any impression(s) listed above is documentation that [...] <Electronically signed by Sarah Osuna MD> 03/14/22 8934 [facility] Work Phone: [phone]) [phone] History and physical note Author Mary Jane Riley [facility] March 14, 2022 6:40amNote Date/TimeAugust 2021 2:02[place] [address] Hospitalist H&P Signed Patient: Evelin Patterson MR#: [id number] : 1955 Acct:[id number] Age/Sex: 66 / M Adm Date: 2 Loc: 3T Room: 6N7428-9 Type: ADM IN Attending Dr: Mary Jane Hanna MD Copies to: MD Leah Marin APRN Marc Naderer, MD~ HPI DATE OF EXAMINATION: 03/14/22 CHIEF COMPLAINT: FRANC HISTORY OF PRESENT ILLNESS: Patient is a 66-year-old male, with a PMHx of Morbid obesity, endocarditis in August of this year,atrial fibrillation, type 2 diabetes, hypertension, liver cirrhosis, anxiety and depression who wastransferred from [facility] for acute kidney injury. Patient presented with generalized weakness anddisorientation at [facility]. He was noted to have [...] No headache or dizziness.No fevers Paperwork from [facility] reviewed, chest x-ray with no acute cardiopulmonary process. Sodium 129. Potassium 3.3. Creatinine 2.52. WBC 6.8. Hemoglobin 12.5. Glucose 4.34. Patient will be admitted by the hospitalist team for further evaluation and management. Review of Systems Review of Systems Review of systems: 10 point review of systems obtained, negative unless noted in the HPI or below [facility] Medical History Abdominal mass Anxiety Arthritis Back pain Cirrhosis Colonoscopy planned Deviated nasal septum Diabetes mellitus, type 2 Eczema History of left heart catheterization Pneumonia Surgical History History of cholecystectomy History of hydrocelectomy History of lithotripsy History of nasal surgery Family History Mother Cancer Social History Smoking Status: Never smoker Substance Use Type: None Social History Comments: Lives in Senior[facility] in [facility] Medications and Allergies Allergies metformin Adverse [...] secondary to poor oral intake. Presented at [facility] with low blood pressures in the 80s. ?Creatinine at [facility] 4.34. Baseline creatinine ~1.4 ?Urine sodium, creatinine, urea pending ? Urine output monitoring ? Start IV fluids ? Hold home lisinopril and renally adjust medications ?Consider renal ultrasound if no improvement ? Nephrology consult ?Monitor BMP COVID-19 positive -unvaccinated. ? Presented with productive cough, hypoxia, loss of taste and generalized weakness ? Afebrile, no leukocytosis ? Chest x-ray from [facility] did not show any acute [...] noncompliance to diabetic diet ?Blood sugar at [facility] was in the 400s ?Basal [...] the plan of care and confirmed the resident's/phd internship/medical student's dictation/written note. Patient is a [...] by Mary Jane Hanna MD> 03/14/22 0640 [facility] Work Phone: 1(401) 273-373704-19-2022 Progress note Author Lupe Hernandez [facility] April 09, 2022 3:32pmNote Date/TimeAugust 2021 1:08pmTiffany [place] [id number] Hospitalist Progress Note Signed with Muna Patient: Evelin Patterson MR#: [id number] : 1955 Acct:[id number] Age/Sex: 66 / M Adm Date: 2 Loc: 3T Room: 5D9758-2 Type: DIS INOo Attending Dr: Lupe Hernandez MD Copies to: ~ ADDENDUM1 Patient was personally seen by me on the day of encounter, reviewed his history and performed long elements of exam and formulated the plan of care and confirmedthe residents note below. Unfortunately patient has been denied by insurance for senior living facility after peer to peer.He will be [...] to thrive, paroxysmal A. fib, CKD 3, ifa-vzhbymo-rbfpsimti diabetes, CHF is being monitored on the floor while a gzxi-fz-wall was had with regards to the patient's [...] agreed the patient would do well at senior living facility. Documented By: Allen Perez DO, RES 2 1302 Signed By: <Electronically signed by DO TAMMIE Perez> 04/09/22 1308 <Electronically signed by Lupe Hernandez MD> 04/09/22 1531 [facility] Work Phone: Discharge summary Author Luke Moran [facility] April 07, 2022 4:16pmNote Date/TimeAugust 2021 10:[address] [address] Discharge Summary Signed with Addenda Patient: Evelin Patterson MR#: [id number] : 1955 Acct:[id number] Age/Sex: 66 / M Adm Date: 2 Loc: 3T Room: 3H6893-[address]: uLke Moran MD Copies to: MD Ayden Connolly [...] discharged home in stable condition to a senior living facility. Medical therapy was adjusted as noted [...] 10:24: POC Glucose 271 04/03/22 07:34: Free Oronoque LC, Quant 93.9 H, Free Lambda LC, Quant 61.6 H, Free Oronoque/Lambda Ratio 1.52 Exam Physical Exam Vital Signs: Temp Pulse Resp BP Pulse Ox O2 Del Method O2 Flow Rate 97.9 F 85 20 134/76 90 L Room Air 2 04/05/22 08:00 04/05/22 08:00 04/05/22 08:00 04/05/22 08:00 04/05/22 08:00 04/05/22 08:00 04/05/22 08:00 FiO2 30 04/04/22 22:34 Discharge Plan Discharge Plan Patient Disposition: [facility]-Way Facility Activity: Ambulate as Tolerated Diet: Diabetic and Low-Sodium Additional Instructions: Please have company providing CPAP machine fit the patient with a mask that he can tolerate. Use a CPAP of 8 whenever asleep until the sleep study performed. [facility]-Way Facility to manage care: - Full code [...] Instructions: Sliding Scale ACHS Other Ambulatory Orders: PALLET STONE INSERTER polysom procedure (Routine) Timeframe: 3 Weeks Location: Determined by Patient Ordered By: Luke Moran Follow Up: [facility] Sleep Lab [Outside] ([facility] or Central Scheduling will call you to arrange date/time for sleep study. ) Documented By: Luke Moran MD 04/07/22 0959 Signed By: <Electronically signed by Luke Moran MD> 04/07/22 1610 [facility] Work Phone: Evaluation + Plan note No data available for this section [facility] Evaluation note* Diagnosis Onset Date Resolution Status FRANC (acute kidney injury) acuteChronic kidney disease, stage III (moderate)acuteCOVIDacuteDiabetesacute HyperglycemiaacuteHypertensionacuteHyponatremiaacuteAbrasion of elbowacuteCHF (congestive heart failure)acuteDiabetes mellitus, type 2acuteFailure to thrive acuteFallacuteHypergammaglobulinemiaacuteHypothyroidismacuteHypoxemiaacuteMorbid obesity due to excess caloriesacuteObstructive sleep apneaacuteUnable to care for selfacute [facility] Work Phone: Evaluation note* Diagnosis Hypotension, unspecified hypotension type- Primary Fall, initial encounter Refusal of treatment Surgical or other procedure not carried out because of patient's decision documented in this encounter [facility]No [facility] information availableMer[facility] Work Phone: Evaluation note* Diagnosis Primary osteoarthritis of both knees- Primary Seasonal allergic rhinitis due to pollen Dermatophytosis of nail- Primary Dystrophic nail Other specified disease of nail Diabetic polyneuropathy associated with type 2 diabetes mellitus ([facility]) Type II diabetes mellitus with peripheral circulatory disorder ([facility]) Type II or unspecified type diabetes mellitus with peripheral circulatory disorders, not stated as uncontrolled Encounter for long-term (current) use of insulin ([facility]) Encounter for long-term (current) use of insulin documented in this encounter [facility] HealthcareEvaluation note* Diagnosis Primary osteoarthritis of both knees- Primary Seasonal allergic rhinitis due to pollen Diabetic polyneuropathy associated with type 2 diabetes mellitus (HCC)- Primary Type II diabetes mellitus with peripheral circulatory disorder (HCC) Type II or unspecified type diabetes mellitus with peripheral circulatory disorders, not stated as uncontrolled Encounter for long-term (current) use of insulin (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) 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 associated with type 2 diabetes mellitus (HCC) documented in this encounter [facility] HealthcareEvaluation note* Diagnosis Primary osteoarthritis of [...] use of insulin documented in this encounter [facility] HealthcareEvaluation note* Diagnosis Primary osteoarthritis of [...] Admit Date Suicidal ideations acuteOctober 2024 1:26pm [facility] Work Phone: Hospital Discharge instructions No data available for this section [facility] Discharge instructionsAmbulatory Orders* Initiate Home Health Time Frame: 04/09/22, Location: Determined By Patient Additional Instructions Please wear home oxygen at 2l at all times. HOME HEALTH TO MANAGE: Nursing/PT/OT/Aide/Insurance Sales Specialist to eval and treat Monitor VS per protocol Maintain home oxygen at 2l continuous *Oxygen therapy is new, educate patient on Monitor Respiratory assessment Assist with medication management and provide medication education Assist with glucose control Skin care TID: *Theraworx protect to bilateral groin and abdominal fold redness. *Educate patient on Provide education on high risk fall precautions [facility] Work Phone: Hospital Discharge instructions Additional Instructions If your symptoms return/worsen or you develop any further concerns or symptoms please see your doctor or return to the emergency department immediately.[facility] Work Phone: Progress note No data available for this section [facility] Progress note Author Sarah Osuna [facility] March 16, 2022 12:40pmNote Date/TimeAugust 2021 12:36pmTiffany [place] [id number] Nephrology Progress Note Signed Patient: Evelin Patterson MR#: [id number] : 1955 Acct:[id number] Age/Sex: 66 / M Adm Date: 2 Loc: Room: [address] [place] [address] Type: ADM IN Attending Dr: Xin Phan MD Copies to: ~ Date of Service: 03/16/2022 Subjective Subjective Narrative: This is 66-year-old male patient with a past medical history of morbid obesity, endocarditis, paroxysmal A. fib, diabetes type 2, anxiety and depression and chronic kidney disease stage III. Patient presented to [facility] with feeling weak and disoriented for 2 weeks which has gotten worse. Patient has been having cough with decreased appetite and loss of taste for a week. Lab at [facility] shows acute kidney injury with creatinine up to 4.3 mg/dL along with hyperglycemia with initial blood glucose level more than 400. Patient's blood pressure was in the 80s at [facility]. Patient was given IV fluid and [...] Tablet) 5 mg PO DAILY [facility] Stop: 03/15/23 15:59 Last Admin: 03/16/22 08:08 [...] Insuln.Pen) 0 units SUBCUT TID.WM.HS [facility]; Protocol Stop: 03/14/23 07:59 Last Admin: 03/16/22 11:57 Dose: 8 units Insulin Detemir (Insulin Detemir 300 Units/3 Ml Insuln.Pen) 40 units SUBCUT DAILY.WITH.BKFAST JOSIANE Stop: 03/16/23 07:59 Last Admin: 03/16/22 08:10 Dose: 40 units Zinc Sulfate (Zinc Sulfate 220 Mg Capsule) 220 mg PO DAILY [facility] Stop: 03/14/23 08:59 Last Admin: [...] Sarah Osuna MD> 03/16/22 1240 [facility] Work Phone: Progress note Author Luke Moran [facility] April 03, 2022 2:05pmNote Date/TimeAugust 2021 2:05pm[place] [address] Hospitalist Progress Note Signed Patient: Evelin Patterson MR#: [id number] : 1955 Acct:[id number] Age/Sex: 66 / M Adm Date: 2 Loc: Room: [address] [place] [address] Type: ADM INOo Attending Dr: Luke Moran [...] signed by Luke Moran MD> 04/03/22 1405 [facility] Work Phone: Progress note Author uLke Moran [facility] April 04, 2022 4:25pmNote Date/TimeAugust 2021 4:25pm[place] [address] Hospitalist Progress Note Signed Patient: Evelin Patterson MR#: [id number] : 1955 Acct:[id number] Age/Sex: 66 / M Adm Date: 2 Loc: Room: [address] [place] [address] Type: ADM INOo Attending Dr: Luke Moran [...] III BMI 51 Cirrhosis likely secondary to [place] Diabetes mellitus type 2 Anxiety disorder Hypertension [...] Flush Documented By: Luke Moran MD 04/04/22 1623 Signed By: <Electronically signed by Luke Moran MD> 04/04/22 1625 [facility] Work Phone: Progress note Author Luke Moran [facility] April 06, 2022 2:50pmNote Date/TimeAugust 2021 2:50pmTiffany Ville [id number] Hospitalist Progress Note Signed Patient: Evelin Patterson MR#: [id number] : 1955 Acct:[id number] Age/Sex: 66 / M Adm Date: 2 Loc: 3T Room: [address] [place] [address] Type: ADM INOo Attending Dr: Luke Moran [...] signed by Luke Moran MD> 04/06/22 1450 [facility] Work Phone: Progress note Author Lupe Hernandez [facility] April 08, 2022 1:38pmNote Date/TimeAugust 2021 1:38pm[place]ikana[place] [address] Hospitalist Progress Note Signed Patient: Evelin Patterson MR#: [id number] : 1955 Acct:[id number] Age/Sex: 66 / M Adm Date: 2 Loc: 3T Room: [address] [place] [address] Type: ADM INOo Attending Dr: Lupe Hernandez [...] Hypothyroidism: Plan Patient currently awaiting placement to senior living facility. Remains in normal sinus rhythm. He [...] signed by Lupe Hernandez MD> 04/08/22 1335 [facility] Work Phone: Reason for referral (narrative)No reason for referral information availableMer[facility] Work Phone: Chief Complaint and [...] Unallocated, Noms MD Francisco [address] [place] [address] PCP - GeneralFamily Medicine10/11/24Team MemberRelationshipSpecialtyStart DateEnd Date Ezio Amado MD [address] [place] [phone] PCP - GeneralFamily Medicine01/19/25 Arline Lazar MD [address] [place] [address] Nurse PractitionerFamily Medicine01/19/25Team MemberRelationshipSpecialtyStart DateEnd Date Ezio Amado MD [address] [place] [phone] PCP - GeneralFamily Medicine01/19/25 Arline Lazar MD [address] [place] [address] Nurse PractitionerFamily Medicine01/19/25Team MemberRelationshipSpecialtyStart DateEnd Date Ezio Amado MD [address] [place] [phone] PCP - GeneralFamily Medicine01/19/25 Arline Lazar MD [address] [place] [address] Nurse PractitionerFamily Medicine01/19/25 Team Status: Inactive Member Role Status Dates Arline Lazar , COUNTER ROLLER-C Primary Care Provider Active Start: December 27, 2024 End: December 27, 2024JOSE JUAN Pereira-Marie ProviderActiveStart: December 27, 2024 End: December 27, 2024 Team Status: Inactive Member Role Status Dates Arline Lazar COUNTER ROLLER-C Primary Care Provider Active Start: February 25, 2025 End: February 25, 2025Setheresa Óscar Samantha KRISTOPHERttending ProviderActiveStart: February 25, 2025 End: February 25, 2025Team MemberRelationshipSpecialtyStart DateEnd Ezio Amado MD [address] [place] [phone] PCP - GeneralFamily Medicine01/19/25 Arline Lazar MD [address] [place], [place] [phone] Nurse Pract[facility]erBel[facility] Medicine01/19/25Team MemberRelationshipSpecialtyStart DateEnd Ezio Amado MD [address] [place] [phone] PCP - GeneralFamily Medicine01/19/25 Arline Lazar MD [address] [place] [address] Nurse PractitionerMercyone Primghar Medical Centerly Medicine01/19/25Team MemberRelationshipSpecialtyStart DateEnd Ezio Amado MD [address] [place] [phone] PCP - GeneralFamily Medicine01/19/25 Arlien Lazar MD [address] [place] [address] Nurse PractitionerFamily Medicine01/19/25Team MemberRelationshipSpecialtyStart End Ezio Amado MD [address] [place] [phone] PCP - GeneralFamily Medicine01/19/25 Arline Lazar MD [address] [place] [address], [place] [address] Nurse PractitionerFagoddard memorial [facility] Medicine01/19/25Team MemberRelationshipSpecialtyStart End Ezio Amado MD [address] [place] [address], [place] [phone] PCP - GeneralFamily Medicine01/19/25 Arline Lazar MD [address] [place] [address] Nurse PractitionerBelcher[facility] Medicine01/19/25 Team Status: Inactive Member Role Status Dates Arline Lazar NP-C Attending Provider Active Start: March 25, 2025 End: March 25, 2025Team MemberRelationshipSpecialtyStart End Ezio Amado MD [address] [place] [address], [place] [phone] PCP - GeneralFamily Medicine01/19/25 Arline Lazar MD [facility] [place] [address] Nurse Practition[facility]Bel[facility] Medicine01/19/25Team MemberRelationshipSpecialtyStart End Ezio Amado MD [address] [place] [phone] PCP - GeneralFagoddard memorial hospital Medicine01/19/25 Arline Lazar MD [address] [place] [address] Nurse PractitionerBelcher[facility] Medicine01/19/25 Team Status: Active Member Role Status Dates Arline Lazar COUNTER ROLLER-C Primary Care Provider Active Start: May 16, 2025 Geni Ching ProviderActiveStart: May 16, 2025 Chung Schuler ProviderActiveStart: May 16, 2025 Brenda Schuler ProviderActiveStart: May 16, 2025 Team Status: Active Member Role/Relationship Status Dates Arline Lazar COUNTER ROLLER-C Primary Care Provider Active Team Status: Inactive Member Role/Relationship Status Dates Arline Lazar COUNTER ROLLER-C Attending Provider Active Start: March 25, 2025 End: March 25, 2025 Team Status: Active Member Role/Relationship Status Dates Arline Lazar COUNTER ROLLER-C Primary Care Provider Active Start: May 16, [...] Member Role/Relationship Status Dates Arline Lazar , COUNTER ROLLER-C Primary Care Provider Active Start: May 23, [...] DOOther ProviderActiveStart: May 23, 2025 Miguel Angel Maneul MDOther ProviderActiveStart: May 23, 2025 Yesenia Hanks , APRNOther ProviderActiveStart: May 23, 2025 Skyler Woods MDOther ProviderActiveStart: May 23, 2025 Lupe Hernandez MDOther ProviderActiveStart: May 23, 2025 Charito Landry MDOther ProviderActiveStart: May 23, 2025 Javid Curtis , DOOther ProviderActiveStart: May 23, 2025 Stewart Sanchez MDOther ProviderActiveStart: May 23, 2025 Renato Looney MDOther ProviderActiveStart: May 23, 2025 Trish Witt , COUNTER ROLLER-COther ProviderActiveStart: May 23, 2025 Angie Cannon , [...] and content) DATE CREATED AUTHOR 05/08/2022 [facility] DATE CREATED AUTHOR AUTHOR'S ORGANIZ ATION 12/23/2022 [facility] DATE CREATED AUTHOR AUTHOR'S ORGANIZ ATION 04/27/2025 [facility] DATE CREATED AUTHOR AUTHOR'S ORGANIZ ATION 05/04/2025 [facility] DATE CREATED AUTHOR AUTHOR'S ORGANIZ ATION 05/18/2025 [facility] DATE CREATED AUTHOR AUTHOR'S ORGANIZ ATION 06/02/2025 [facility] Reason for Visit (unrecogniz [...] BE BASED ON THE PRIMARY CLINICAL RECORDS. [facility] [employer] [facility]. provides no warranty or guarantee of the accuracy or completeness of information in this document.
[2025-06-09 18:27] LABS: Hematocrit 34.0 % (42.0-54.0); Hemoglobin 10.2 g/dL (14.0-18.0); Immature Granulocytes Abs Auto 0.01 10^3/uL (0.00-0.03); Immature Granulocytes Pct Auto 0.1 % (0.0-0.5); Lymphocytes Absolute Auto 1.2 10^3/uL (1.2-3.8); Mean Corpuscular HGB Conc 30.0 g/dL (29.9-35.2); Mean Corpuscular Hemoglobin 27.0 pg (25.9-34.0); Mean Corpuscular Volume 89.9 fL (80.0-94.0); Platelet Count 261 10^3/uL (150-450); Red Blood Count 3.78 10^6/uL (4.70-6.10); White Blood Count 6.8 10^3/uL (4.0-11.0)
[2025-06-09 18:47] LABS: Alanine Aminotransferase 21 U/L (16-63); Albumin Globulin Ratio 0.5; Albumin Level 2.6 g/dL (3.4-5.0); Alkaline Phosphatase 165 U/L (46-116); Anion Gap 13.5; Aspartate Amino Transferase 35 U/L (15-37); Blood Urea Nitrogen 18.0 mg/dL (7.0-18.0); Calcium 8.6 mg/dL (8.5-10.1); Carbon Dioxide 27.0 mmol/L (21.0-32.0); Chloride 102 mmol/L (98-107); Estimated GFR (African America 48 (>=60 mL/min/1.73m^2); Estimated GFR (Non-African Ame 39 (>=60 mL/min/1.73m^2); Globulin 4.8 g/dL; Glucose 228 mg/dL (74-106); Magnesium 1.5 mg/dL (1.8-2.4); Potassium 4.5 mmol/L (3.5-5.1); Sodium 138 mmol/L (136-145); Total Protein 7.4 g/dL (6.4-8.2)
--- OUTSIDE RECORDS SUMMARY | 2025-06-09 18:59 | XMS_ITS | CCD ---
Author Organization Unknown Care Team Providers Care Supervisor Printing Shop Name Role Phone Unavailable Primary Care Provider Unavailabl e Unavailable Chronic Care Management Unavaila ble Summary Purpose DataExchange Insurance Providers Payer name Policy type / Coverage type Covered democrat ID Effective Begin Date Effective End Date [facility] [id number] Unknown Unknown Family History Family History data not found Medication Administered No Medication Administered data Reason For Visit No Reason For Visit data Medical Equipment No Medical Equipment data Advance Directives No Advance Directive data
--- OUTSIDE RECORDS SUMMARY | 2025-06-09 18:59 | XMS_ITS | CCD ---
Author Organization Unknown Care Team Providers Care Travel Physical Therapist Name Role Phone Unavailable Primary Care Provider Unavailabl e Unavailable Chronic Care Management Unavaila ble Summary Purpose DataExchange Insurance Providers Payer name Policy type / Coverage type Covered republican ID Effective Begin Date Effective End Date [facility] [id number] Unknown Unknown Family History Family History data not found Medication Administered No Medication Administered data Reason For Visit No Reason For Visit data Medical Equipment No Medical Equipment data Advance Directives No Advance Directive data
[2025-06-09 19:16] LABS: NT Pro B Type Natriuretic Pept 1220.0 pg/mL (<=900.0)
== END 2025-06-09 22:00 | disposition home or self-care (01) ==
PROVIDERS: Emergency Medicine; Emergency Provider Internal Medicine; PCP Nurse Practitioner Family
DX: R55 Syncope and collapse (principal); R10.30 Lower abdominal pain, unspecified
CPT/HCPCS: 36415; 71045; 80053; 83735; 83880; 84484; 85025; 93005; 99285

== ENCOUNTER 2025-08-10 17:00 | Emergency (ER) | payer MEDICARE, MEDICAID, SELFPAY ==
--- OUTSIDE RECORDS SUMMARY | 2023-09-23 12:02 | XMS_ITS | Continuity of Care Document ---
Author Organization [facility] Address [address] [place] [address] Phone Care Team Providers Care Medical Secretary Name Role Phone Brant Lazo Jr, MD Unavailable Unavailable Allergies, Adverse Reactions, Alerts Substance Reaction Status Criticality metformin Unknown Active No Information PROCHLORPERAZINE MALEATE Active No Information PROCHLORPERAZINE EDISYLATE Active N o Information prochlorperazine Active No Informat ion Medications Medication Instructions Dosage Effective Dates (start - stop) Status Comments levofloxacin 750 mg tablet take 1 tablet by oral route every day 750 MG - Active Synthroid 200 mcg tablet take 1 tablet b y oral route every day 200 MCG - Active Lantus Solostar U-100 Insulin 100 unit/mL (3 mL) subcutaneous pen inject by subcutaneous route as per insulin protocol 0.00 - Active trazodone 50 mg tablet take 2 tablet by oral route every day at bedtime 100 MG - Active pioglitazone 30 mg tablet take 1 tablet by oral route every day 30 MG - Active isosorbide mononitrate ER 30 mg tablet,extended release 24 hr take 1 tablet by oral route every day in the morning 30 MG - Active hydrochlorothiazide 25 mg tablet take 1 tablet by oral route every day 25 MG - Active alprazolam 0.5 mg tablet take 1 tablet b y oral route 2 times every day 0.5 MG - Active Proair Digihaler 90 mcg/actuation aerosol powder breath act, sensor inhale 2 puff by inhalation route every 4 - 6 hours as needed - Active Procedures Procedure Date Balance Transfer From Old PMS Fluorescein Angiography Fundus Photos New Patient, Moderate Advance Directives Directive Yes / No Effective Date File Name No Information Encounters Encounter Description Practice Location Reason(s) For Visit Diagnoses Date Provider Providers Copied on Encounter [facility], [address] [facility], [place], [address], [place] tel:[phone] OPLO Hodgsonedo No Information 4 Violet Brant. [address], [address], [place], [place], [id number], [place]. tel:[phone] [facility], [address] [facility], [place], [address], [place] tel:[phone] POLO Rosay No Information 3 Matilde Hughes. [address], [address], [place], [place], [id number], [place]. tel:[phone] [facility], [address] [place], [address], [place] tel:[phone] [facility] No Information 9 Corporate Doctor. [address] [place], [place], [id number], [place]. tel:[phone] Referring Provider: [address], [place], [address]. tel:[phone] New Patient, Moderate [facility], [address] [place], [address], [place] tel:[phone] POLO Glaser macular degeneration (chief complaint)dec rease in vision (chief complaint) Age-related nuclear cataract, bilateralBenign neoplasm of left choroidRetinal hemorrhage, bilateralEssentia l (primary) hypertensionType 2 diab with mild nonp rtnop without macular edema, bi 8 Orgel Anali. [address], [address], [place], [place], [id number], [place]. tel:[phone] Referring Provider: [address], [place], [address]. tel:[phone] Family History Family Member Type Diagnosis Age At Onset Problem (finding) Family history of Diabe rolando mellitus Problem (finding) Family history of hyper tension Immunizations Vaccine Date Status Comments Influenza, seasonal, injecta ble, 3 yrs or older (36 mos+) FluLaval administered Source: Other P rovider Payers Payer name Insurance type Covered democrat ID Authoriza tion(s) No Information Social History Type Description Quantity Date Captured Comments Alcohol Use Details Unknown Caffeine Use Details Unknown Tobacco Use Status No Information Smoking Status No Information Sex Male Chief Complaint And Reason For Visit No Information Reason For Referral Reason For Referral No Information History Of Present Illness Encounter Date Complaint History Of Prese nt Illness decrease in vision The patient r eports a decrease in vision in the right eye and left eye. It started about 1 year ago. The onset was gradual. It affects distance vision. The symptom is constant. The condition is moderate. In addition, the condition is associated with daily activity and chores. Patient reports intermittent floaters affecting near vision in both eyes x years. Patient reports a throbbing sensation in the left eye x 3 months intermittently affecting all distances of vision. macular degeneration The 62 year old male referred by Dr. Murillo for possible macular degeneration in the right eye. Functional Status Date Functional Assessmen t No Information Instructions Date Instruction Additional Infor mation Impression/Plan Related to Retin al hemorrhage, bilateral Impression/Plan Related to Essen tial (primary) hypertension Impression/Plan Related to Type 2 diab with mild nonp rtnop without macular edema, bi Impression/Plan Related to Age-r elated nuclear cataract, bilateral Impression/Plan Related to Benig n neoplasm of left choroid Assessments Type Assessment Date No Information Patient Care Teams Name Effective Dates (start - stop) Status Members No Information
--- OUTSIDE RECORDS SUMMARY | 2024-07-16 05:00 | XMS_ITS ---
Author Organization [facility] Address [address] [place] [address] Care Team Providers Care Tight Rope Walker Name Role Phone Arline Rouse Primary Care Provider Carlos Ashby Unavailable [phone] Margot Titus Unavailable [phone] REASON FOR VISIT lumbar pain Encounters Encounter Location Date Provider Diagnosis [facility] Office [address] [place] [address] [address] [place] [address] 07/16/2024 Margot Titus Plan Of Treatment Pending Test Test Name Order Date Lumbar spine, 4v flex ext - [id number] 2023 Progress Notes * EVELIN CAMACHO LDOB:[birth year] (69 yo M)Acc No.[id number]:07/16/2024 Patient:?DOUGEVELIN :?Margot Lema MD, PhDDOB:1955 ???Age:68 Y???Sex:MaleDate:07/16/2024hone:[phone]:[address] [place] [address], [address], [place], [id number]:Arline Rouse Subjective: * Chief Complaints: * 1 . Lumbar pain. * Medical History: Objective: * Vitals: Assessment: Plan: * Treatment: ?Imaging: Lumbar spine, 4v flex ext - 40081 Forms: * Images: * Electronic signature of Margot Titus MD, PHD on 08/10/2025 at 08:28 PM EST Sign off status: Pending * Provider: Pa Lema MD, PhD Date: 1 09/16/2023 Generated for Printing/Faxing/eTransmitting on:?08/10/2025 08:28 PM EST
--- OUTSIDE RECORDS SUMMARY | 2025-01-17 06:10 | XMS_ITS ---
Author Organization [facility] Address [address] [place] [address] Care Team Providers Care Grain Loader Name Role Phone Arline Rouse Primary Care Provider Carlos Ashby [facility] [phone] REASON FOR VISIT RIGHT KNEE PAIN Medications Medication SIG (Take, Route, Frequency, Duration) Notes Start Date End Date Status Synthroid ActivegabapentinActivelisinoprilActiveLantusActiveropinirole hcl 0.5 MGTAKE 1 TABLET EVERY DAY AT BEDTIME; Duration: 90 DaysActiveEliquisActiveSupplements Cream for yeast infectionActiveBenadrylActiveNexIUMActiveArthritis medication Active Encounters Encounter Location Date Provider Diagnosis [facility] Office [address] [place] [address] [place] [address] 01/17/2025 Carlos Saul Plan Of Treatment No Information Progress Notes * EVELIN CAMACHO LDOB:[birth year] (69 yo M)Acc No.[id number]:01/17/2025 Patient:?EVELIN CAMACHO :?Carlos Saul, MDDOB:1955???Age:69 Y ???Sex:MaleDate:01/17/2025Phone:[phone]:[address] [facility], [address], [place], [id number]:Arline Rouse Subjective: * Chief Complaints: * 1 . RIGHT KNEE PAIN. * Medical History: * Medications: T aking Arthritis medication , Taking Eliquis , Taking Supplements , Notes to Pharmacist: Cream for yeast infection, Taking Benadryl , Taking NexIUM , Taking Synthroid , Taking gabapentin , Taking lisinopril , Taking Lantus , Taking ropinirole hcl 0.5 MG TABLET TAKE 1 TABLET EVERY DAY AT BEDTIME Objective: * Vitals: Assessment: Plan: * Treatment: Forms: * Images: * Electronic signature of Carlos Saul MD on 08/10/2025 at 08:27 PM ESTSign off status: Pending * Provider: Pa Saul MD Date: 0 01/17/2025 Generated for Printing/Faxing/eTransmitting on:?08/10/2025 08:27 PM EST
--- OUTSIDE RECORDS SUMMARY | 2025-01-31 06:15 | XMS_ITS ---
Author Organization [facility] Address [address] [place] [address] Care Team Providers Care Package Sorter Name Role Phone Arline Rouse Primary Care Provider Carlos Ashby [facility] [phone] REASON FOR VISIT RIGHT KNEE PAIN Encounters Encounter Location Date Provider Diagnosis [facility] [address] [facility] [address] [place] [address] 01/31/2025 Carlos Saul Plan Of Treatment No Information Progress Notes * EVELIN CAMACHO LDOB:[birth year] (69 yo M)Acc No.[id number]:01/31/2025 Patient:?EVELIN CAMACHO :?Carlos Saul MDDOB:1955???Age:69 Y ???Sex:MaleDate:01/31/2025Phone:[phone]:[address] [facility], [address], [place], [place]Bam:Arline Rouse Subjective: * Chief Complaints: * 1 . RIGHT KNEE PAIN. * Medical History: Objective: * Vitals: Assessment: Plan: * Treatment: Forms: * Images: * Electronic signature of Carlos Saul MD on 08/10/2025 at 08:28 PM ESTSign off status: Pending * Provider: Pa Saul MD Date: 0 01/31/2025 Generated for Printing/Faxing/eTransmitting on:?08/10/2025 08:28 PM EST
--- OUTSIDE RECORDS SUMMARY | 2025-03-22 08:15 | XMS_ITS ---
Author Organization [facility] in [place] Address [address] [place] [address] Care Team Providers Care Test Case Developer Name Role Phone Arline Rouse Primary Care Provider REASON FOR VISIT EAR PAIN, DRAINAGE Encounters Encounter Location Date Provider Diagnosis [facility] [address] [place] [address] 03/22/2025 Arline Rouse Plan Of Treatment No Information Progress Notes * Stephane PATTERSON LDOB:[birth year] (69 yo M)Acc No.[id number]:03/22/2025 UNLOCKED PROGRESS NOTE Progress Note Patient: Stephane DESIR :?Arline WONG), CNPDOB:1955 ???Age:69 Y???Sex:MaleDate:03/22/2025Phone:[phone]:[address] [facility] [facility] [address], [place], [phone] Subjective: * Chief Complaints: * 1 . EAR PAIN, DRAINAGE. * Medical History: Objective: * Vitals: Assessment: Plan: * Treatment: * * Electronic signature of Arline Rouse NP, GROUP ACTIVITIES AIDE.TURRET PUNCH OPERATOR.[id number] on 08/10/2025 at 08:28 PM ESTSign off status: PendingVisit Status:?N/S N/C (No Show/No Charge) * Provider: Javier WONG), TURRET PUNCH OPERATOR Date: 0 03/22/2025 Generated for Printing/Faxing/eTransmitting on:?08/10/2025 08:28 PM EST
--- OUTSIDE RECORDS SUMMARY | 2025-06-28 08:00 | XMS_ITS ---
Author Organization [facility] [place] Address [address] [place] [address] Care Team Providers Care Stock Tracer Name Role Phone Arline Rouse Primary Care Provider REASON FOR VISIT ears feel squishy Encounters Encounter Location Date Provider Diagnosis [facility] [address] [place] [address] 06/28/2025 Arline Rouse Plan Of Treatment No Information Progress Notes * PATTERSON Stephane LDOB:[birth year] (69 yo M)Acc No.[id number]:06/28/2025 UNLOCKED PROGRESS NOTE Progress Note Patient: Stephane DESIR :[facility] CNPDOB:1955 ???Age:69 Y???Sex:MaleDate:06/28/2025Phone:[phone]:[address] [facility], [address], [place], [phone] Subjective: * Chief Complaints: * 1 . ears feel squishy . * Medical History: Objective: * Vitals: Assessment: Plan: * Treatment: * * Electronic signature of Arline Rouse NP, DIRECTOR LEARNING.CLINICAL DOCUMENTATION MANAGER.[id number] on 08/10/2025 at 08:28 PM ESTSign off status: PendingVisit Status:?CANCPHONE (Cancelled Phone) * Provider: Javier WONG), CLINICAL DOCUMENTATION MANAGER Date: 08/28/2024 Generated for Printing/Faxing/eTransmitting on:?08/10/2025 08:28 PM EST
[2025-08-10 17:11] VITALS: BP 158/98; PULSE 94; TEMP 36.7; O2SAT 98; BMI 45.9
--- NOTE | 2025-08-10 20:20 | CT_ITS ---
The [address] [address] Patient Name: EVELIN CAMACHO MRN: [id number] date: 1955 Sex: M Assigned Patient Location: ED.MAIN Current Patient Location: ED.MAIN Accession/Order Number: [id number] Exam Date: 08/10/2025 20:50 Report Date: 08/10/2025 21:07 At the request of: TAMMY NARAYAN MD Procedure: CT head/brain wo con CT head/brain wo con 08/10/2025 8:55 PM SIGNS AND SYMPTOMS: ^Right scalp localized swelling, likely abscess TECHNIQUE:Multi-detector CT axial slices of the brain were obtained without IV contrast. CT was performed with one or more of the following dose reduction techniques: Automated exposure control, adjustment of the mA and/or kV according to patient size, or use of iterative reconstruction technique. COMPARISON: 02/21/2024 FINDINGS: There is no shift of the midline structures, acute intracranial bleeding, mass effects, or evidence of acute ischemia. There is age-related cortical atrophy. Atherosclerotic changes are noted in the intracranial segments of the internal carotid arteries. The ventricular system is normal in size. The brainstem and the cerebellum are unremarkable. The visualized intraorbital contents, the visualized paranasal sinuses, and the infratemporal soft tissues show no acute abnormality. The osseous structures in the skull base and the calvarium show no abnormality. There is soft tissue swelling in the lateral aspect of the right frontal scalp. No underlying osteolytic or bony destructive process. Soft tissue edema extends along the right side of the face. CT/CT head/brain wo con IMPRESSION: There is soft tissue swelling in the lateral aspect of the right frontal scalp. No underlying osteolytic or bony destructive process. An abscess is not excluded. Soft tissue edema extends along the right side of the face. This suggests accompanying cellulitis. There is age-related cortical atrophy. Impression dictated by: Bon Doherty M.D. 08/10/2025 9:07 PM Dictation Location: [place] [address] Electronically authenticated by: [id number] Y Date: 08/10/2025 21:07
--- NOTE | 2025-08-10 20:21 | ED.GENADUL1 ---
HPI HPI - General Adult General Chief complaint: Skin/Abscess/Foreign Body Stated complaint: Lump Time Seen by Provider: 08/10/25 20:18 Source: patient Mode of arrival: walk-in History of Present Illness HPI narrative: 69-year-old male presented to the emergency department for a swollen area on his right scalp. He states that it been there for 2 days and there is been no drainage or any trauma. It is been continuous and its tender to touch. Related Data Home Medications ?Medication ?Instructions ?Recorded ?Confirmed atorvastatin 40 mg tablet 40 mg PO BEDTIME 07/16/23 10/09/24 esomeprazole magnesium 40 mg 40 mg PO Q24H 07/16/23 10/09/24 capsule,delayed release gabapentin 100 mg capsule 200 mg PO BEDTIME 07/16/23 10/09/24 insulin glargine 100 unit/mL (3 40 unit subcut DAILY 07/16/23 10/09/24 mL) subcutaneous pen (Lantus Solostar U-100 Insulin) isosorbide mononitrate 30 mg 30 mg PO DAILY 07/16/23 10/09/24 tablet,extended release 24 hr levothyroxine 200 mcg tablet 200 mcg PO DAILY 07/16/23 10/09/24 liothyronine 5 mcg tablet 5 mcg PO DAILY 07/16/23 10/09/24 ropinirole 0.5 mg tablet 0.5 mg PO BEDTIME 07/16/23 10/09/24 sertraline 100 mg tablet 100 mg PO DAILY 07/16/23 10/09/24 apixaban 5 mg tablet (Eliquis) 5 mg PO DAILY 04/14/24 10/09/24 diclofenac sodium 75 mg 75 mg PO Q12H PRN pain 04/14/24 10/09/24 tablet,delayed release nystatin 100,000 unit/gram topical 1 applic topical QDAY 04/14/24 10/09/24 cream trazodone 50 mg tablet 50 mg PO BEDTIME PRN insomnia 04/14/24 10/09/24 simvastatin 20 mg tablet 20 mg PO BEDTIME 10/09/24 10/09/24 Previous Rx's ?Medication ?Instructions ?Recorded lisinopril 20 mg tablet 20 mg PO QD #30 tabs 02/23/24 hyoscyamine sulfate 0.125 mg 0.125 mg PO Q6H PRN abdominal pain 10/09/24 sublingual tablet (Levsin/SL) #20 tabs ondansetron 4 mg disintegrating 4 mg PO Q6H PRN nausea and 10/09/24 tablet vomiting #20 tabs cephalexin 500 mg capsule 500 mg PO QID 10 days #40 caps 08/10/25 sulfamethoxazole 800 1 tab PO BID 10 days #20 tabs 08/10/25 mg-trimethoprim 160 mg tablet (Bactrim DS) Allergies Allergy/AdvReac Type Severity Reaction Status Date / Time metformin AdvReac Severe Flatulence Verified 04/14/24 13:33 prochlorperazine (From AdvReac Severe Anxiety Verified 04/14/24 13:33 Compazine) Opioid HPI Opioid Management Most Recent Opioid Data: Last Pain Scale 10 06/09/25, 17:39 Last ORT Total Score 1 02/18/24, 22:54 Last ORT Risk Category Low Risk 02/18/24, 22:54 Review of Systems ROS Narrative A ten point review of systems is negative except as noted above. PFSH PFSH Medical History Neuropathy ?G62.9 - Polyneuropathy, unspecified (ICD-10) GERD (gastroesophageal reflux disease) ?K21.9 - Gastro-esophageal reflux disease without esophagitis (ICD-10) UTI (urinary tract infection) ?N39.0 - Urinary tract infection, site not specified (ICD-10) Sepsis ?A41.9 - Sepsis, unspecified organism (ICD-10) Fibromyalgia ?M79.7 - Fibromyalgia (ICD-10) Hyperlipidemia ?E78.5 - Hyperlipidemia, unspecified (ICD-10) Hypothyroid ?E03.9 - Hypothyroidism, unspecified (ICD-10) Depression ?F32.A - Depression, unspecified (ICD-10) Anxiety ?F41.9 - Anxiety disorder, unspecified (ICD-10) Hypertension ?I10 - Essential (primary) hypertension (ICD-10) Diabetes ?E11.9 - Type 2 diabetes mellitus without complications (ICD-10) Surgical History H/O right heart catheterization ?Z98.890 - Other specified postprocedural states (ICD-10) History of lithotripsy ?Z98.890 - Other specified postprocedural states (ICD-10) H/O colonoscopy ?Z98.890 - Other specified postprocedural states (ICD-10) Family History Mother Family history of cancer Social History Within the past year, how often did you have a drink containing alcohol: never Within the past year, how many standard drinks containing alcohol did you have on a typical day: 1 or 2 Within the past year, how often did you have six or more drinks on one occasion: never Total score: 0 Score interpretation: A score less than 4 is consistent with normal alcohol consumption. Smoking status: Never smoker Non-prescribed substance use: denies use Previous occupational history: disability Highest level of school completed/degree received: high school graduate Are you now , , , , never or living with a partner: In a typical week, how many times do you talk on the telephone with family, friends, or neighbors: twice per week How often do you get together with friends or relatives: twice per week How often do you attend scientology or latter day services: 4 or more times per year Do you belong to any clubs or organizations such as scientology groups unions, fraternal or athletic groups, or school groups: no Total score: 2 Score interpretation: A score of greater than or equal to 2 indicates the lowest level of social isolation. Little interest or pleasure in doing things: not at all Feeling down, depressed, or hopeless: not at all Feel stressed/tense/nervous/anxious/difficulty sleeping: not at all Gender Identity: male Exam Narrative Exam Narrative: Nurses note and vital signs reviewed General:The patient appears in no acute distress Skin:Warm, dry, no pallor noted.There is no rash noted. Head: The right side of his scalp has an erythematous nonbruised swollen area that is tender to touch. There is no open area or drainage Eye: Normal conjunctiva, no drainage Ears, Nose, Mouth, and Throat: oral mucosa is moist. Nares patent. Cardiovascular: Irregularly irregular Respiratory:Patient is in no distress, no accessory muscle use, lungs are clear to auscultation, no wheezing, rales or rhonchi Back:non-tender GI: Obese and nontender Musculoskeletal: The patient has no evidence of calf tenderness, no pitting edema, symmetrical pulses noted bilaterally Neurological:A&O, normal speech Psychiatric:Cooperative Constitutional Vital Signs, click to edit/add: Last Vital Signs Temp 97.6 F 08/10/25 20:33 Pulse 80 08/10/25 20:33 Resp 22 H 08/10/25 20:33 BP 132/86 08/10/25 20:33 Pulse Ox 100 08/10/25 20:33 O2 Del Method Room Air 08/10/25 17:11 Course Vital Signs Vital signs: Vital Signs Temperature 98.0 F 08/10/25 17:11 Pulse Rate 94 H 08/10/25 17:11 Respiratory Rate 20 08/10/25 17:11 Blood Pressure 158/98 H 08/10/25 17:11 Pulse Oximetry 98 08/10/25 17:11 Oxygen Delivery Method Room Air 08/10/25 17:11 Temperature 97.6 F 08/10/25 20:33 Pulse Rate 80 08/10/25 20:33 Respiratory Rate 22 H 08/10/25 20:33 Blood Pressure 132/86 08/10/25 20:33 Pulse Oximetry 100 08/10/25 20:33 Oxygen Delivery Method Room Air 08/10/25 17:11 Medical Decision Making MDM Narrative Medical decision making narrative: The following procedure was performed by me. Local infiltration was carried out with 1% lidocaine without epinephrine resulting in complete skin anesthesia. The area was prepped with Betadine x 3 and draped sterilely. Using a #11 blade the area was incised and minimal purulent drainage was extracted. Quarter inch iodoform packing applied and dressing applied. CT scan to ensure no erosion into the bone. He will return for packing removal and reassessment. At this point I do not feel that admission to the hospital is warranted. He was given IV Ancef and prescribed Bactrim and Keflex with culture pending. Treatment diagnosis and follow-up were discussed with the patient. Differential Diagnosis Differential Diagnosis: Cellulitis, abscess Imaging Data CT scan - head: Radiologist's impression: ITS Impressions Head CT 08/10/25 20:20 IMPRESSION: There is soft tissue swelling in the lateral aspect of the right frontal scalp. No underlying osteolytic or bony destructive process. An abscess is not excluded. Soft tissue edema extends along the right side of the face. This suggests accompanying cellulitis. There is age-related cortical atrophy. Impression dictated by: Bon Doherty M.D. 08/10/2025 9:07 PM Dictation Location: [place] [address] Electronically authenticated by: [id number] Y Date: 08/10/2025 21:07 Discharge Plan Discharge Chief Complaint: Skin/Abscess/Foreign Body Clinical Impression: Scalp abscess Patient Disposition: Home, Self-Care Time of Disposition Decision: 22:03 Condition: Good Mode of Transportation: Private Vehicle Prescriptions / Home Meds: New sulfamethoxazole-trimethoprim [Bactrim DS] 800-160 mg tablet 1 tab PO BID 10 Days Qty: 20 0RF cephalexin 500 mg capsule 500 mg PO QID 10 Days Qty: 40 0RF No Action atorvastatin 40 mg tablet 40 mg PO BEDTIME esomeprazole magnesium 40 mg capsule,delayed release(DR/EC) 40 mg PO Q24H gabapentin 100 mg capsule 200 mg PO BEDTIME insulin glargine [Lantus Solostar U-100 Insulin] 100 unit/mL (3 mL) insulin pen 40 unit SUBCUT DAILY isosorbide mononitrate 30 mg tablet extended release 24 hr 30 mg PO DAILY levothyroxine 200 mcg tablet 200 mcg PO DAILY liothyronine 5 mcg tablet 5 mcg PO DAILY sertraline 100 mg tablet 100 mg PO DAILY ropinirole 0.5 mg tablet 0.5 mg PO BEDTIME simvastatin 20 mg tablet 20 mg PO BEDTIME hyoscyamine sulfate [Levsin/SL] 0.125 mg tablet, sublingual 0.125 mg PO Q6H PRN (Reason: abdominal pain) Qty: 20 0RF ondansetron 4 mg tablet,disintegrating 4 mg PO Q6H PRN (Reason: nausea and vomiting) Qty: 20 0RF lisinopril 20 mg Tablet 20 mg PO QD Qty: 30 11RF diclofenac sodium 75 mg tablet,delayed release (DR/EC) 75 mg PO Q12H PRN (Reason: pain) trazodone 50 mg tablet 50 mg PO BEDTIME PRN (Reason: insomnia) nystatin 100,000 unit/gram cream 1 applic TOPICAL QDAY Eliquis 5 mg Tablet 5 mg PO DAILY Print Language: New Zealander Instructions: Abscess (ED) Additional Instructions: Return on August 12 for packing removal and reevaluation. Referrals: CADY,KATHIA [Primary Care Provider, Family Practice] - 1 week
--- OUTSIDE RECORDS SUMMARY | 2025-08-10 20:28 | XMS_ITS | Patient Health Record ---
Author Organization [facility] Address [address] [place] [address] Care Team Providers Care Dietary Supervisor Name Role Phone Arline Rouse Primary Care Provider UnavailCarlos Magallanes Unavailable [phone] [address] ZhouJuan[address]imona Unavailable [phone] xxLottie Washington Unavailable Allergies Allergen (clinical drug ingredient) Drug/Non Drug Allergy documented on EMR Reaction Allergy Type Onset Date Status compozine (uncoded)anxietyAllergyActivemetforminmetFORMINGI upsetDrug Allergy Active Reason For Referral Reason APPROVED............ ........................NOT SCHEDULED...................................[facility] LUMBAR TO BE DONE AT [facility] Diagnosis 1 Compression fracture of T10 vertebra with routine healing, subsequent encounter (S22.070D) Diagnosis 2 Spondylolisthesis of lumbar region (M43.16) Referral Organization [facility] Referring Provider First Name Juanasimona Referring Provider Last Name St Zhou Referring Provider Speciality Orthopedic Surgery Referred Organization [facility] Central Scheduling Referred Address [address] [place] [place], [place],[address], Procedure 1 MRI Lumbar Spine w/o Dye ([id number]) General Notes Sravani Pichardo 2024 12:00:30 PM >, Gabriella Merino 10/15/2024 12:02:57 PM > WAITING ON TODAY'S OFFICE NOTE, Gabriella Merino 10/18/2024 10:12:51 AM > WAITING ON 10/16 OFFICE NOTE, Gabriella Merino 10/20/2024 02:45:19 PM > ANTHEM ACTIVE AND EFFECTIVE 10/09/24 PER AIM. AUTHORIZATION # [id number] APPROVED AND VALID 10/20/24-01/17/25 PER AIM. SCANNED INTO CHART AND FAXED TO [facility]., Sravani Pichardo 10/21/2024 10:46:43 AM >[facility] DOES NOT DO MRI WITH SEDATION PER PATIENT, SO WILL NEED TO CHANGE LOCATION TO [facility] IN [place]. SPOKE WITH [facility] AND THEY NEED TO FAIL TEST WITH VERSED FIRST THEN WILL DO SEDATION, Gabriella Merino 10/22/2024 07:23:10 AM > I'M CONFUSED REFERRAL DOESN'T SAY ANYTHING ABOUT SEDATION AND AUTHORIZATION WASN'T OBTAINED FOR SEDATION. DO I NEED TO GET SEDATION PRECERTED THAT REQUIRES A SEPARATE AUTHORIZATION THROUGH [facility]., Sravani Pichardo 10/22/2024 01:47:18 PM >THERE IS A REFERRAL FOR MRI AND REFERRAL FOR SEDATION IN THE CHART, AND YES I NEED SEDATION, Gabriella Merino 10/22/2024 01:54:57 PM > AUTH UPDATED TO [facility]. SCANNED INTO CHART AND FAXED TO THEM. IF THEY END UP DOING SEDATION THEY WILL HAVE TO OBTAIN AUTHORIZATION., Brigitte Heredia 10/25/2024 08:40:54 AM > order faxed Referral Priority Routine Reason APPROVED............ ......................NOT SCHEDULED..............................[facility] LUM[facility]YLO[facility] TO BE DONE AT [facility] Diagnosis 1 Compression fracture of T10 vertebra with routine healing, subsequent encounter (S22.070D) Diagnosis 2 Spondylolisthesis of lumbar region (M43.16) Referral Organization [facility] Referring Provider First Name Margot Referring Provider Last Name St Zhou Referring Provider Speciality Orthopedic Surgery Referred Organization [facility] Central Scheduling Referred Address [address], [place],[address],[place] Procedure [address] lumbar spine; W/ contrast material ([id number]) General Notes Sravani Pichardo 2024 08:29:42 AM >Wilber Kayla 12/30/2024 09:31:17 AM > ANTHEM ACTIVE AND EFFECTIVE 10/09/24 PER AIM. AUTHORIZATION # [id number] APPROVED AND VALID 12/30/24-03/29/25 PER AIM. SCANNED INTO CHART AND FAXED TO [facility].Giovanna Sara 12/30/2024 10:51:28 AM > faxed, Sravani Pichardo 02/04/2025 10:29:13 AM >LOCATION CHANGE TO [facility] PLEASE, Sravani Pichardo 02/04/2025 10:30:11 AM >Wilber Kayla 02/04/2025 10:41:01 AM > AUTHORIZATION UPDATED AND FAXED TO [facility].Giovanna Sara 02/07/2025 09:54:04 AM >faxed Referral Priority Routine Medications Medication SIG (Take, Route, Frequency, Duration) Notes Start Date End Date Status Eliquis ActiveSupplementsCream for yeast infectionActiveBenadrylActiveNexIUMActive SynthroidActivegabapentinActivelisinoprilActiveLantusActiveropinirole hcl 0.5 MG TAKE 1 TABLET EVERY DAY AT BEDTIME; Duration: 90 DaysActiveArthritis medication Active Social History Tobacco Use: Social History Observation Description Date Details (start date - stop date) Never Smoker NA - NA AUDIT-C (Standard) Question Answer Notes Did you have a drink containing alcohol in the p ast year? No Gpmczu1NwsmkwlxwwqrqdFtduicvnZgmfxjk Control (Standard) Question Answer Notes Tobacco use: Nonsmoker Problems Problem Type SNOMED Code ICD Code Onset Dates Problem Status W/U Status Risk Notes Problem Claustrophobia (53072725) Claustrophobia (F40.240) ActiveconfirmedProblemAcquired spondylolisthesis (601924833)Spondylolisthesis of lumbar region (M43.16)ActiveconfirmedProblemHistory of fall (513774561)History of fall (Z91.81)ActiveconfirmedProblemCompression fracture of T10 vertebra with routine healing, subsequent encounter (S22.070D)ActiveconfirmedProblem 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 back pain and lower extremity pain (M51.372)Activeconfirmed Vital Signs Height 5 ft 10 in in 10/15/2024 Dgbkqn778 lbs5BMI45.9110/15/2024 Encounters Encounter Location Date Provider Diagnosis [facility] [address] [place] [address] [place] [address] 10/15/2024 [place] Compression fracture of T10 vertebra with routine healing, subsequent encounter S22.070D ; Spondylolisthesis of lumbar region M43.16 ; 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 back pain and lower extremity pain M51.372 and History of fall Z91.81 [facility] [address] [place] [address] 12/30/2024 Selvon Tacho Compression fracture of T10 [...] Lumbar spine 2v flex and ext - 02355 02/2025 CT Myelogram - Lumbar Spine 12/30/2024 Sedation per Radiologist orders for diag nostic procedure 10/15/2024 MRI : Lumbosacral Spine W/O Contrast - 7 2148 10/15/2024 Insurance Providers Payer Name Payer Address Payer Phone Subscriber Number Group Number Insured Name Patient Relationship to Insured Coverage Start Date Coverage End Date Medicare [employer] [address] [place] [address] [id number] EVELIN CAMACHO Self - [facility] the [facility] [address] [place] [id number] Pasha CAMACHO - patient is the [id number] 2024 Medical (General) History Medical History History ICD Code High Blood Pressure Abnormal Heart RhythmBronchitisLiver DiseaseDiabetesThyroid diseaseStomach ulcersGastric RefluxIrritable bowel syndromeKidney stonesAnemiaAnxietyDepression Seen a PsychiatristDrug AllergiesSurgical History Surgery Date(Month/Year) Heart cath
--- OUTSIDE RECORDS SUMMARY | 2025-08-10 20:28 | XMS_ITS | CCD ---
Author Organization Unknown Care Team Providers Care Family Medicine Chair Name Role Phone Unavailable Primary Care Provider Unavailabl e Unavailable Chronic Care Management Unavaila ble Summary Purpose DataExchange Insurance Providers Payer name Policy type / Coverage type Covered constitution party ID Effective Begin Date Effective End Date [facility] [id number] Unknown Unknown Family History Family History data not found Medication Administered No Medication Administered data Reason For Visit No Reason For Visit data Medical Equipment No Medical Equipment data Advance Directives No Advance Directive data
--- OUTSIDE RECORDS SUMMARY | 2025-08-10 20:28 | XMS_ITS | Clinical Summary ---
Author Organization [facility] Address [address] [facility] [place] [address] Care Team Providers Care Marketing Sales Manager Name Role Phone Unavailable Primary Care Provider Unavailabl e Source Comments The following information is NOT included in Care Everywhere downloads:Psychiatric notes, ECG results, Cardiac Rehab notes, Pulmonary Function notes, data from SmartForms (includes but not limited toPregnancy data,audiograms, eye exams, pre-surgical evaluation notes, well-child exam data).[facility] Social History Tobacco UseTypesPacks/DayYears UsedDateSmoking Tobacco: Never AssessedSex and Gender InformationValueDate RecordedSex Assigned at BirthNot on fileLegal Sex Male01/13/2021 5:12 PM EDTGender IdentityNot on fileSexual OrientationNot on file Last Filed Vital Signs Vital SignReadingTime TakenCommentsBlood Podgsxzb36/5809 6:00 AM EDT Hnzse6065 6:00 AM EDTTemperature--Respiratory Qlkf062205/01/2022 6:00 AM EDTOxygen Jbuqdtuunf89%05/01/2022 6:00 AM EDT2 L NC at baselineInhaled Oxygen Concentration--Weight--Height--Body Mass Index-- Plan of Treatment Health MaintenanceDue DateLast DtkjFomhiknsXqsrhusalfp41/19/1958Hepatitis C Hlcyiypu60/19/1976Tdap Yvtsllq9611/28/1975Hepatitis A (HAV) Vaccine (optional start 19+ years)11/27/19760810Fwgirxbspxv80/19/1993CRC Kztpwgksm37/19/2003Cologuard (Stool DNA)2002FIT2002Pneumococcal Vaccine(s) (50+ yrs) (1 of 1 - PCV)11/28/2007Shingles (RZV) Vaccine (1 of 2)11/28/2007Hepatitis B (HBV) Vaccine (optional start 60+ years)04/19/2018Annual Wellness Visit (G0438)12/09/2022 COVID-19 Vaccine ( - 2024-26 season)2025Influenza Vaccine (#1)2025 RSV vaccine (adult) (1 - 1-dose 75+ series)2032 Insurance
--- OUTSIDE RECORDS SUMMARY | 2025-08-10 20:28 | XMS_ITS | Clinical Summary ---
Author Organization [facility] Healthcare Address [address] [place] [address] Care Team Providers Care Pantry Steward/Stewardess Name Role Phone Arline Rouse MD Unavailable [phone] Ezio Amado MD Primary Care Provider [phone] Allergies Active AllergyReactionsCriticalityNoted MjthXenaroqzMavvbbmcwZthbvox48/03/2022 Other Reaction(s): Flatulence Bloating and gas Kmnnrzxkksfv49/21/2024 Other Reaction(s): stomach problems ProchlorperazineAnxiety,YiiwjVej62/02/2022 flatulence Medications MedicationSigDispense QuantityRefillsLast FilledStart DateEnd DateStatus sertraline (Zoloft) 100 MG tablet Indications:Depression, unspecified depression typeTAKE 1 TABLET BY MOUTH DAILY 90 tablet 4Active atorvastatin (Lipitor) 40 MG tablet Active isosorbide mononitrate ER (Imdur) 30 MG 24 hr tablet Indications:CAD in [place] arteryTake 1 tablet (30 mg) by mouth Daily 30 tablet 1104/17/877949/6Active lisinopril 40 MG tablet Indications:Essential hypertension, benignTake 1 tablet (40 mg) by mouth Daily 30 tablet ctive gabapentin (Neurontin) 100 MG capsule Indications:DDD (degenerative disc disease), cervicalTake 1 capsule (100 mg) by mouth in the morning and 1 capsule (100 mg) before bedtime. 60 capsule 4Active esomeprazole (NexIUM) [address] capsule Indications:Gastroesophageal reflux disease without esophagitisTAKE 1 CAPSULE EVERY DAY 90 capsule ctive rOPINIRole (Requip) 0.5 MG tablet Indications:Restless leg syndromeTAKE 1 TABLET EVERY DAY AT BEDTIME 90 tablet ctive nystatin (Mycostatin) cream Indications:Skin candidiasisApply topically 2 (two) times a day 30 g ctive insulin glargine (Lantus SoloStar) 100 UNIT/ML pen Indications:Type 2 diabetes mellitus with hyperglycemia, with long-term current use of insulin ([facility])INJECT 40 UNITS SUBCUTANEOUSLY EVERY DAY 5 each ctive insulin pen needle (B-D UF III MINI PEN NEEDLES) 31G x [facility] Indications:Type 2 diabetes mellitus with hyperglycemia, with long-term current use of insulin ([facility])USE 1 EACH DAY DIRECTED 100 each ctive fluticasone (Flonase) 50 MCG/ACT nasal spray Indications:Seasonal allergic rhinitis due to pollenUSE 2 SPRAYS IN EACH NOSTRIL IN MORNING.SHAKE GENTLY.BEFORE FIRST USE,PRIME PUMP.AFTER USE,CLEAN TIP AND REPLACE CAP. 16 mL 5Active Eliquis 5 MG tablet 01/14/2025tive carvedilol (Coreg) 3.125 MG tablet Oral for 90 DaysActive Banophen 25 MG capsule TAKE 1 - 2 CAPSULES BY MOUTH 4 TIMES A DAY FOR RGUOQEQ5912/21/2024tive levothyroxine (Synthroid, Levoxyl) 200 MCG tablet Take 200 mcg by mouth Daily12/27/2024tive liothyronine (Cytomel) 5 MCG tablet TAKE 1 TABLET BY MOUTH EVERY DAY ON EMPTY STOMACH FOR 30 DAYS5Active Active Problems ProblemNoted DateDiagnosed DateAge-related nuclear cataract of both eyes 03/08/2025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 onzswoxw94/29/2025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 associated with type 2 diabetes snnpcabu46/29/2025Essential hypertension, suafdi9209/16/2023 Primary osteoarthritis of both knees09/16/2023 Assessment & Plan (09/16/2023 11:03 AM EST): Increased pain and swelling for months and x-ray with OA. Start prednisone. Use percocet PRN. [facility] for evaluation. Patient declined PT. CAD in [place] qigdrw5709/16/2023irrhosis of liver without qpffrsl8309/16/2023OPD (chronic obstructive pulmonary disease)09/16/20231717Ycwnbtgjkuly96/06/2024 Generalized anxiety githqpbn05/06/2024Gastroesophageal reflux wrqbuey7409/16/2023 Sisi's shsmdhq7609/16/2023Hyperammonemia, type III09/16/2023Insomnia 09/16/2023Lumbosacral radiculopathy due to degenerative joint disease of spine 09/16/2023Obstructive sleep apnea (adult) (pediatric)09/16/2023Type 2 diabetes mellitus with hyperglycemia, with long-term current use of ypowtpx3409/16/2023 Diabetic rqugwfrspqtzmn65/06/2024estless leg amsonhqi02/06/2024DD (degenerative disc disease), locszots88/06/2024Seasonal allergic rhinitis due to wxubzh9209/16/2023Mild nonproliferative diabetic retinopathy associated with type 2 diabetes wgsaiwuj49/26/2018 Encounters DateTypeDepartmentCare SdzbXcuswtrdvrx03/29/2025Orders Only [facility] [address] [place] [address] Kirby Florian DO Age-related nuclear cataract of both eyes; 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)07/20/2025 1:15 PM ESTOffice Visit [facility] [address] [place] [address] Carlos Burns DPM Dermatophytosis of nail (Primary Dx); Dystrophic nail; Diabetic polyneuropathy associated with type 2 diabetes mellitus (HCC); Type II diabetes mellitus with peripheral circulatory disorder (HCC); Encounter for long-term (current) use of insulin (HCC)07/20/2025amboo flowsheet [facility] [address] [place] [address] Carlos Burns DPM 07/20/2025Travelfrom Last 3 Months Immunizations ImmunizationAdministration DatesNext DueInfluenza, [...] ValueDate RecordedSex Assigned at BirthNot on fileLegal MunMxke7410/23/2022 7:00 PM EDTGender IdentityNot on fileSexual OrientationNot on file Last Filed Vital Signs Vital SignReadingTime TakenCommentsBlood Vlpnusrd659/7772809/16/2023 10:37 AM EST Hoasi891609/16/2023 10:37 AM MVQRcgndesyisi48.9 ??C (96.6 ??F)09/16/2023 10:37 AM ESTRespiratory Rate--Oxygen Wyuyputazd89%09/16/2023 10:37 AM ESTInhaled Oxygen Concentration--Ebhocb704 kg (330 lb)07/20/2025 1:11 PM KDDNmwoga830.8 cm (5' 10 )07/20/2025 1:11 PM ESTBody Mass Index47.35109/20/2024 1:11 PM EST Plan of Treatment DateTypeDepartmentCare Team (Latest Contact Info)Occyjuiwkxu15/05/2026 1:00 PM ESTClinical Support [facility] [address] [place] [address] Kirby Florian DO [address] [place] [address] 11/02/2025 2:15 PM EDTOffice Visit [facility] [address] [place] [phone] Carlos Burns, DPM [address] [place] [address] Insurance Care Teams Team MemberRelationshipSpecialtyStart Date Ezio Amado MD [address] [place] [phone] PCP - GeneralFamily Medicine01/19/25 Arline Rouse MD [facility] [place] [address] Nurse PractitionerFamily Medicine01/19/25
--- OUTSIDE RECORDS SUMMARY | 2025-08-10 20:28 | XMS_ITS | CCD ---
Author Organization [facility] Inform ion Partnership [facility] Care Team Providers Care Production Internship Name Role Phone JEFF CARLOS Saul Primary Care Physician MD Ayden Freeman Primary Care Provider [phone] Al MD Mary Jane Campbell Admit Provider MD Syed Osunaiz Other Provider MD Xin Phan Attending Provider DO Jair Gabriel Emergency Provider MD Luke Moran Admit Provider MD Lupe Hernandez Attending Provider [phone] DO Ramesh Byrd Emergency Provider PROVIDER, UNKNOWN [...] Admitting Unavailable Margot Singh MD Attending Provider [phone] Cady MEDICAL EDUCATION MANAGER-C, Arline Almazan Primary Care Provider [phone] Decker PA-CLottie Attending Provider Unallocated , Saidas Provider Primary Care [facility] Arline Lazar MD Unavailable Ezio Amado MD Primary Care Provider [phone] Cady MEDICAL EDUCATION MANAGER-C, Arline Almazan Primary Care Provider [phone] Margot Singh MD Attending Provider [phone] Cady MEDICAL EDUCATION MANAGER-C, Arline Almazan Primary Care Provider [phone] Decker PA-CLottie Attending Provider Cady MEDICAL EDUCATION MANAGER-C, Arline Almazan Attending Provider [phone] ARLINE LAZAR Primary Care Physician [phone] Nancy Stanton Attending Unavailable CADY, ARLINE Winn Referring Unavailable NILL, Javid Huffman Attending Unavailable RUSHER, CAROL Haney Attending Unavailable RUSHER, CAROL Haney Attending Unavailable ZAHLER, SYLVIA Simmons Attending Unavailable JIMENA SY Referring Unavailable RUSHER, CAROL Haney Attending Unavailable ZAHLER, SYLVIA Simmons Attending Unavailable ZAHLXAVIER, SYLVIA Simmons Attending Unavailable Cady MEDICAL EDUCATION MANAGER-C, Arline Arriagae Primary Care Provider Matt DAVID, Carmine Hughes Emergency Provider Juan A Garza MD Admit Provider Greg JOHNSON, Juan A Attending Provider ELTAHAWY, EHAB Referring Unavailable ELTAHAWY, EHAB Attending Unavailable ELTAHAWY, EHAB Admitting Unavailable ELTAHAWY, EHAB Attending Unavailable Cady MEDICAL EDUCATION MANAGER-C, Arline Almazan Primary Care Provider Juan A [...] Other Provider Luke Moran MD Other Provider [phone] Nisa Starkey MD Other Provider [phone] Javid Palm DO Other Provider Unavailab luisa Manuel MD, Miguel Angel Other Provider Unavailable Yesenia Hanks APRN Other Provider Skyler Woods MD Other Provider Lupe Hernandez MD Other Provider Unavailable Charito Landry MD Other Provider Javid Curtis DO Other Provider Stewart Sanchez MD Other Provider Renato Looney MD Other Provider Edura MEDICAL EDUCATION MANAGER-C, Trish Carlos Other Provider Angie Cannon APRN [...] Provider Maximiliano JOHNSON, Shade Haney Other Provider [phone] Diane Thapa RN Other Provider Unavailable Thanh Mazariegos MD Attending Provider Arline Lazar Attending Unavailable Cady, Arline Norah Admitting Unavailable Decker, Lottie R Attending Unavailabl e Decker, Lottie R Admitting Unavailabl e Cady, Arline [...] Albrecht Consulting Unavailable Babar Vinson Consulting Unavailable Cryus Gallegos Consulting Unavailable Christiano Sanders Consulting Mikayla [...] of OnsetReaction(s) Facility (20 sources)metFORMIN; Translations: [metformin]Drug Pdxffow31-08-3245Isntavl, Gastrointestinal irritation (disorder)[facility] (20 sources)Prochlorperazine; Translations: [prochlorperazine]Drug Allergy 58-97-6182Txzumfm, Other, Anxiety (finding)[facility] (3 sources)Prochlorperazine; Translations: [Compazine]Drug AllergyThe [facility] (15 sources)pioglitazoneDrug Tbosdfu01-50-1826[facility] Medications Current Medications MedicationDrug Class(es)DatesSig (Normalized)Sig (Original)Albuterol (13 sources)beta2-Adrenergic AgonistStart: 62-26-4985kzrs 90 ug by inhalation every four hoursAlbuterol (Eqv-ProAir HFA) 90 mcg, Inhalation, q4hr Shortness of breath or wheezing, Refill(s) 0 Start Date: 04/15/25 Status: Ordered Repeat number: 1Start: 52-90-0342xiip 1 puff(s) by inhalation every four hours as neededapixaban 5 mg oral tablet (20 sources)Factor Xa InhibitorStart: 58-28-0395zkfk 2.5 mg by mouth twice daily Eliquis 5 mg oral tablet 2.5 mg = 0.5 tab(s), Oral, BID, Refills(s) 0 Start Date: 04/15/25 Status: Ordered Repeat number: 1Start: 17-87-7539znkt 1 tablet by mouth twice dailyApixaban (Eliquis) 5 mg tablet Active 5 MG PO Twice daily December 17, 2024 12:00am Complies with drug therapyARIPiprazole 2 mg oral tablet (1 source)Atypical AntipsychoticStart: 10-35-5962ofip 1 tablet by mouth once dailyaspirin 81 mg chewable tablet (7 sources)Platelet Aggregation Inhibitor, Nonsteroidal Anti-inflammatory Drug Start: 36-55-5584gbszuuz 81 mg Chew Tab 81 mg = 1 tab(s), Chewed, Daily, Refills(s) 0 Start Date: 04/15/25 Status: Ordered Repeat number: 1Start: 12-17-2024 End: 74-81-8086lsaw 1 tablet by mouth once daily in the morningAspirin 81 mg tablet,chewable Discontinued 81 MG PO Every morning December 17, 2024 12:00am February 25, 2025 11:40amatorvastatin 40 mg oral tablet (20 sources)HMG-CoA Reductase InhibitorStart: 17-80-5571dfpx 1 tablet by mouth once daily at bedtimeazelastine hydrochloride 0.5 mg/ml ophthalmic solution (1 source)Histamine-1 Receptor AntagonistStart: 65-81-5508emwv 1 drop(s) into the eye(s) twice dailyazelastine 0.05% Opth Allyson 1 drop(s), Eye-Both, BID Allergy symptoms, Refill(s) 0 Start Date: 04/15/25Status: Ordered Repeat number: 1 carvedilol 3.125 mg oral tablet (14 sources)alpha-Adrenergic Eva, beta-Adrenergic Blockercarvedilol (Coreg) 3.125 MG tablet Oral for 90 Days Activecholecalciferol 0.125 mg oral capsule (1 source)Vitamin DStart: 63-12-3384ivrk 1 capsule by mouth once dailydiclofenac sodium 75 mg delayed release oral tablet (7 sources)Nonsteroidal Anti-inflammatory DrugStart: 24-41-2890qsul 1 tablet by mouth twice dailydiclofenac sodium 75 mg Oral EC Tab 75 mg = 1 tab(s), Oral, BID, Refills(s) 0 Start Date: 04/15/25 Status: Ordered Repeat number: 1Start: 89-14-1599ubqp 2 tablets by mouth once daily at bedtimeDiclofenac Sodium 75 mg tablet,delayed release (DR/EC) Active 150 MG PO Daily at bedtime December 17, 2024 12:00am Complies with drug therapydiphenhydrAMINE hydrochloride 25 mg oral tablet (20 sources)Histamine-1 Receptor AntagonistStart: 30-63-9270rexm 1 tablet by mouth four times dailyBenadryl 25 mg Tab = 1 tab(s), Oral, QID, Refills(s) 0 Start Date: 04/15/25 Status: Ordered Repeat number: 1Start: 74-61-2771oyaf 1-2 capsules by mouth four times dailyBanophen 25 MG capsule TAKE 1 - 2 CAPSULES BY MOUTH 4 TIMES A DAY FOR ITCHING 12/21/2024 ActiveStart: 22-87-6731Oeqwc: 08-47-1812cczeyenttaot 40 mg delayed release oral capsule (20 sources)Proton Pump InhibitorStart: 57-47-8657fhzj 1 capsule by mouth once dailyStart: 03-14-2022 End: 53-55-5162rhdt 1 capsule by mouth once dailyEsomeprazole Magnesium 40 mg capsule,delayed release(DR/EC) Discontinued 40 MG PO Daily March 12:00am April 02, 2022 6:07pmferrous sulfate 324 mg delayed release oral tablet (1 source)Start: 11-53-4583mzkn 1 tablet by mouth twice dailyfluticasone propionate 0.05 mg/actuat metered dose nasal spray (20 sources)CorticosteroidStart: 44-38-7242sruesavskly (Flonase) 50 MCG/ACT nasal spray Indications: Seasonal allergic rhinitis due to pollen USE 2 SPRAYS IN EACH NOSTRIL IN MORNING.SHAKE GENTLY.BEFORE FIRST USE,PRIME PUMP.AFTER USE,CLEAN TIPAND REPLACE CAP. 16 mL 1 12/27/2024 ActiveStart: 12-17-2024 gabapentin 100 mg oral capsule (20 sources)Anti-epileptic AgentStart: 48-68-4349laup 1 capsule by mouth twice dailyStart: 34-21-5089rtes 2 capsules by mouth once daily at bedtimeGabapentin 100 mg capsule Active 200 MG PO Daily at bedtime December 17, 2024 12:00am Complies with drug therapyStart: 15-74-6885ztaj 1 capsule by mouth in the morning gabapentin (Neurontin) 100 MG capsule Indications: DDD (degenerative disc disease), cervical Take 1capsule (100 mg) by mouth in the morning and 1 capsule (100 mg) before bedtime. 60 capsule 2 12/08/2023 ActiveStart: 04-04-2022 End: 48-37-7022mbiy 2 capsules by mouth three times dailyGabapentin 100 mg capsule Discontinued 200 MG PO Three times daily 0 30 April 04, 2022 1:12pm December 17, 2024 2:27pmStart: 35-99-7598neci 200 mg by mouth three times daily Gabapentin Active 200 MG PO Three times daily 0 April 04, 2022 1:12pm Start: 00-58-7957cjnc 200 mg by mouth three times dailyGabapentin Active 200 MG PO Three times daily 0 April 04, 2022 1:12pmStart: 44-13-6768oxsh 200 mg by mouth three times dailyGabapentin Active 200 MG PO Three times daily 0 April 04, 2022 1:12pmStart: 03-14-2022 End: 93-31-6166suwg 1 capsule by mouth twice dailyGabapentin 100 mg capsule Discontinued 100 MG PO Twice daily March 14, 2022 12:00am April 09, 2022 12:27pmStart: 07-20-2020 End: 06-41-5505hlql 1 capsule by mouth three times dailyGabapentin 300 mg Capsule Discontinued 300 MG PO Three times daily 9 August 10, 2020 4:48pm March 14, 2022 2:41amInsulin Aspart U-100 (Novolog Flexpen U-100 Insulin) 100 unit/mL (3 mL) Insulin Pen (8 sources)Start: 08-25-7144gqayng 1 dose by subcutaneous injection at bedtime Insulin Aspart U-100 (Novolog Flexpen U-100 Insulin) 100 unit/mL (3 mL) Insulin Pen Active 1 sliding scale dose SUBCUT Before meals and at bedtime December 17, 2024 12:00amStart: 04-05-2022 End: 53-06-9206Yavdkds Aspart U-100 (Novolog Flexpen U-100 Insulin) 100 unit/mL (3 mL) Insulin Pen Discontinued 0 UNITS SUBCUT Before meals and at bedtime April 05, 2022 12:00am December 17, 2024 2:27pmStart: 41-69-6599Swfljfg Aspart U- 100 (Novolog Flexpen U-100 Insulin) 100 unit/mL (3 mL) Insulin Pen Active 0 UNITS SUBCUT Before meals and at bedtime 0 April 05, 2022 12:00am3 ml insulin glargine 100 unt/ml pen injector (20 sources)Insulin AnalogStart: 80-09-1249Zcgkv: 12-19-2023 End: 47-70-6828Npuhphb Glargine (Lantus Solostar U-100 Insulin) 100 unit/mL (3 mL) insulin pen Discontinued 40 UNIT SUBCUT Daily at bedtime December 17, 2024 12:00am May 27, 2025 1:38pm24 hr isosorbide mononitrate 30 mg extended release oral tablet (20 sources)Nitrate VasodilatorStart: 03-14-2022 End: 38-89-6260brlb 1 tablet by mouth once daily at bedtime, then take 1 tablet by mouth every twenty-four hoursLantus Solostar Pen (1 source)Start: 59-35-5978dbeapi 45 [IU] by subcutaneous injection once daily Lantus Solostar Pen 45 unit(s), SubCutaneous, Daily, Refill(s) 0 Start Date: 04/15/25 Status: OrderedRepeat number: 1levothyroxine sodium 0.2 mg oral tablet (20 sources)l-ThyroxineStart: 83-26-4630jbpf 1 tablet by mouth once daily levothyroxine 200 mcg (0.2 mg) Tab 200 mcg = 1 tab(s), Oral, Daily, Refills(s) 0 Start Date: 04/15/25Status: Ordered Repeat number: 1Start: 76-83-3124oscg 1 tablet by mouth once dailyStart: 04-09-2022 End: 89-89-2872Hhohosyyhcufk (Synthroid) 200 mcg Tablet Discontinued 250 MCG PO Daily April 09, 2022 12:00am December 17, 2024 2:27pmStart: 04-09-2022 Levothyroxine (Synthroid) 200 mcg Tablet Active 250 MCG PO Daily April 09, 2022 12:00amStart: 19-86-3532Awhiwjsqcclyf (Synthroid) 200 mcg Tablet Active 250 MCG PO Daily April 09, 2022 12:00amStart: 07-20-2020 End: 84-16-3484jlbz 1 tablet by mouth once dailyLevothyroxine 200 mcg tablet Discontinued 200 MCG PO Daily at 629July 20, 2020 1:00am April 09, 2022 12:27pmStart: 07-20-2020 End: 34-28-7621rkro 1 tablet by mouth once dailyLevothyroxine (Synthroid) 25 mcg Tablet Discontinued 25 MCG PO Daily July 20, 2020 1:00am July 20, 2020 6:14pmliothyronine sodium 0.005 mg oral tablet (16 sources)l-TriiodothyronineStart: 22-09-4971avbr 1 tablet by mouth once daily Start: 02-36-0094asak 1 tablet by mouth once dailyCytomel 5 mcg Tab 5 mcg = 1 tab(s), Oral, Daily, Refills(s) 0 Start Date: 04/15/25 Status: Ordered Repeat number: 1Start: 08-70-7443mhcb 1 tablet by mouth once dailyliothyronine (Cytomel) 5 MCG tablet TAKE 1 TABLET BY MOUTH EVERY DAY ON EMPTY STOMACH FOR 30 DAYS 01/13/2025 Activelisinopril 20 mg oral tablet (20 sources)Angiotensin Converting Enzyme InhibitorStart: 71-30-1387idwk 1 tablet by mouth once dailyStart: 03-14-2022 End: 49-78-0444pkxd 1 tablet by mouth once dailyLisinopril 40 mg tablet Discontinued 40 MG PO Daily March 14, 2022 12:00am December 17, 2024 2:18pmStart: 07-20-2020 End: 29-98-2255Sudkrzmmfs 2.5 mg Tablet Discontinued 20 MG PO Twice daily July 20, 2020 1:00am August 07, 2020 3:01pmStart: 07-20-2020 End: 96-41-9924dmix 20 mg by mouth twice dailyLisinopril Discontinued 20 MG PO Twice daily July 20, 2020 1:00am August 07, 2020 3:01pmloratadine 10 mg oral tablet (2 sources)Start: 89-50-7516cypm 1 tablet by mouth once dailyStart: 04-15-2025 take 1 tablet by mouth once dailyloratadine 10 mg Tab 10 mg = 1 tab(s), Oral, Daily, Refills(s) 0 Start Date: 04/15/25 Status: OrderedRepeat number: 1magnesium oxide 400 mg oral tablet (1 source)Start: 80-17-2848rczs 1 tablet by mouth once daily24 hr metoprolol succinate 25 mg extended release oral tablet (7 sources)beta-Adrenergic BlockerStart: 86-12-8604fynx 1 tablet by mouth once daily in the morningnystatin 934104 unt/ml topical cream (20 sources)Polyene AntifungalStart: 44-87-8157cejebmcs (Mycostatin) cream Indications: Skin candidiasis Apply topically 2 (two) times a day 30 g 3 12/09/2023 ActiveStart: 03-14-2022 End: 77-68-5408Gsdzbjhv 100,000 unit/mL suspension Discontinued March 14, 2022 12:00am March 14, 2022 2:54amrOPINIRole 0.5 mg oral tablet (20 sources)Nonergot Dopamine AgonistStart: 46-49-3406zaxm 1 tablet by mouth once daily at bedtimeStart: 03-14-2022 End: 45-23-1307hzds 0.5 mg by mouth once daily at bedtimeRopinirole 5 mg Tablet Discontinued 0.5 MG PO Daily at bedtime March 14, 2022 12:00am December 17, 2024 2:15pm administer 1-3 hours before bedtimeStart: 13-98-9827gxoc 0.5 mg by mouth once daily at bedtimeRopinirole Active 0.5 MG PO Daily at bedtime March 14, 2022 12:00am administer 1-3 hours before bedtimesertraline 100 mg oral tablet (20 sources)Serotonin Reuptake InhibitorStart: 28-89-8176nkcg 1 tablet by mouth once dailytraZODone hydrochloride 50 mg oral tablet (14 sources)Serotonin Reuptake InhibitorStart: 87-14-0820anpl 1 tablet by mouth once daily at bedtime as neededStart: 67-30-8822iyts 1 tablet by mouth once daily at bedtimetraZODONE 50 mg Tab 50 mg = 1 tab(s), Oral, Once a day (at bedtime), Refills(s) 0 Start Date: 04/15/25 Status: Ordered Repeat number: 1Start: 03-14-2022 End: 88-18-3988ipmr 1 tablet by mouth once daily at bedtimeTrazodone 50 mg Tablet Discontinued 50 MG PO Daily at bedtime March 14, 2022 12:00am March 6:08pmvitamin b12 1 mg oral tablet (1 source)Vitamin Q49Vrcpy: 60-53-1166rkgn 1 tablet by mouth once daily in the morning Completed/Discontinued Medications MedicationDrug Class(es)DatesSig (Normalized)Sig (Original)acetaminophen 500 mg oral tablet (12 sources)Start: 04-04-2022 End: 33-34-7028pqnh 2 tablets by mouth every six hours as needed for pain Acetaminophen 500 mg Tablet Discontinued 1000 MG PO Q6H as needed for Fever Or Pain 0 0 April 04, 2022 12:00am May 16, 2025 2:28pmStart: 49-61-2541ixsc 1000 mg by mouth every six hoursAcetaminophen Active 1000 MG PO Q6H 0 April 04, 2022 12:00amStart: 79-57-7981xdps 1000 mg by mouth every six hours Acetaminophen Active 1000 MG PO Q6H 0 April 04, 2022 12:00amStart: 04-04-2022 take 1000 mg by mouth every six hoursAcetaminophen Active 1000 MG PO Q6H 0 April 04, 2022 12:00amacetaminophen 300 mg / codeine phosphate 30 mg oral tablet (12 sources)Opioid AgonistStart: 04-02-2022 End: 09-86-0377msmi 1 tablet by mouth every six hours as needed for pain Acetaminophen-Codeine 300-30 mg tablet Discontinued 1 TAB PO Q6H as needed for Pain April 02, 2022 12:00am April 09, 2022 12:27pmacetaminophen 325 mg / HYDROcodone bitartrate 5 mg oral tablet (12 sources)Opioid AgonistStart: 07-27-2020 End: 04-23-1232ywqg 1 tablet by mouth four times daily as needed for pain Hydrocodone-Acetaminophen ([place]) 5-325 mg Tablet Discontinued 1 TAB PO Four times daily as needed for Pain July 27, 2020 1:00am August 10, 2020 4:49pmbaclofen 10 mg oral tablet (12 sources)gamma-Aminobutyric Acid-ergic AgonistStart: 07-26-2020 End: 93-78-9439zula 1 tablet by mouth three times daily as needed for pain Baclofen 10 mg tablet Discontinued 10 MG PO Three times daily as needed for Pain July 26, 2020 1:00am August 10, 2020 3:06pmBevacizumab solution prefilled syringe 1.25 mg (6 sources)Start: 05-03-2025 End: 65-22-4754Zwdjrfsimra solution prefilled syringe 1.25 mgStart: 05-03-2025 End: 51.25 mg, Intravitreal, Once PRN Procedure, Starting on Fri05/03/25 at 1521, For 1 doseStart: 05-03-2025 End: 12-98-4211Zzjxacjftmw solution prefilled syringe 1.25 mgStart: 05-03-2025 End: 51.25 mg, Intravitreal, Once PRN Procedure, Starting on Fri05/03/25 at 1517, For 1 doseStart: 03-23-2025 End: 41-28-5427Rnhkgoctgus solution prefilled syringe 1.25 mgStart: 03-23-2025 End: 51.25 mg, Intravitreal, Once PRN Procedure, Starting on Fri03/23/25 at 1419, For 1 doseceFAZolin 200 mg/ml injectable solution (12 sources)Cephalosporin AntibacterialStart: 08-01-2020 End: 24-40-1842oatl 10 g intravenously every eight hoursCefazolin 10 gram Recon Soln Discontinued 2 GM IV Q8H 105 35 0 August 01, 2020 1:00am August 10, 2020 3:06pmStart: 08-01-2020 End: 56-49-1011gllr 2 g intravenously every eight hoursCefazolin Discontinued 2 GM IV Q8H 105 35 August 01, 2020 1:00am August 10, 2020 3:06pmcelecoxib 200 mg oral capsule (20 sources)Nonsteroidal Anti-inflammatory DrugStart: 08-07-2020 End: 97-68-4349nhhj 1 capsule by mouth at bedtimeCelecoxib (Celebrex) 200 mg capsule Discontinued 200 MG PO Bedtime August 07, 2020 1:00am March 16, 2022 9:32amStart: 07-20-2020 End: 13-22-6929utqf 1 capsule by mouth twice daily as needed for anxiety Celecoxib 200 mg capsule Discontinued 200 MG PO Twice daily as needed for Anxiety July 20, 2020 1:00am August 02, 2020 2:52pmclotrimazole 10 mg/ml topical cream (18 sources)Azole AntifungalStart: 12-17-2024 End: 16-08-9345Iohfsoncyqiq 1 % cream Discontinued 1 APPLIC TOPICAL Twice daily as needed for rash December 17, 2024 12:00am February 25, 2025 11:40amStart: 03-14-2022 End: 82-16-5422Rtrfeqemylaf 1 % cream Discontinued 1 APPLIC TOPICAL Daily as needed for Dry Skin March 14, 2022 12:00am April 09, 2022 12:27pmcolchicine 0.6 mg oral capsule (12 sources)Start: 07-20-2020 End: 26-21-6002sxze 1 capsule by mouth twice dailyColchicine 0.6 mg Capsule Discontinued 0.6 MG PO Twice daily July 20, 2020 1:00am July 20, 2020 6:15pmdexamethasone 6 mg oral tablet (12 sources)CorticosteroidStart: 03-16-2022 End: 60-49-2738gmso 1 tablet by mouth once dailyDexamethasone 6 mg Tablet Discontinued 6 MG PO Daily 6 6 0 March 16, 2022 12:00am April 02, 2022 6:07pmhydroCHLOROthiazide 25 mg oral tablet (20 sources)Thiazide DiureticStart: 03-14-2022 End: 50-45-3576Pckwnpevicljpsqanag Discontinued MG TABLET March 14, 2022 12:00am March 14, 2022 2:54amStart: 07-27-2020 End: 47-18-6918ypxi 1 tablet by mouth once dailyHydrochlorothiazide 25 mg Tablet Discontinued 25 MG PO Daily March 14, 2022 12:00am March 14, 2022 2:54am hydrOXYzine hydrochloride 25 mg oral tablet (12 sources)AntihistamineStart: 03-14-2022 End: 44-95-3011qjmh 1 tablet by mouth once daily at bedtime as needed for anxietyHydroxyzine Hcl 25 mg tablet Discontinued 25 MG PO Daily at bedtime as needed for Anxiety March 14, 2022 12:00am April 09, 2022 12:27pm3 ml insulin aspart, human 100 unt/ml pen injector (10 sources)Insulin AnalogStart: 04-05-2022 End: 26-07-1475wytkpy 1 dose by subcutaneous injection at bedtimeInsulin Aspart U-100 (Novolog Flexpen U-100 Insulin) 100 unit/mL (3 mL) Insulin Pen Discontinued 1 sliding scale dose SUBCUT Before meals and at bedtime December 17, 2024 12:00am February 25, 2025 11:41am3 ml insulin detemir 100 unt/ml pen injector (12 sources)Insulin AnalogStart: 03-16-2022 End: 63-99-4863Sflptrn Detemir U-100 (Levemir Flextouch U100 Insulin) 100 unit/mL (3 mL) Insulin Pen Discontinued 40 UNIT SUBCUT Daily with breakfast March 16, 2022 12:00am December 17, 2024 2:13pm3 ml insulin lispro 100 unt/ml pen injector (12 sources)Insulin AnalogStart: 03-16-2022 End: 37-31-8348Ptuyrgi Lispro (Humalog Kwikpen Insulin) 100 unit/mL Insulin [...] source for Protocol details. Start: 03-16-2022 End: 35-99-5972rdbhxd 1 dose by subcutaneous injection at bedtimeInsulin Lispro (Humalog Kwikpen Insulin) 100 unit/mL Insulin Pen Discontinued 1 sliding scale dose SUBCUT Before meals and at bedtime March 16, 2022 12:00am April 09, 2022 12:27pm Sliding Scale ACHS Please contact the information source for Protocol details.3 ml liraglutide 6 mg/ml pen injector (12 sources)GLP-1 Receptor AgonistStart: 04-04-2022 End: 35-78-1754phdpev 0.6 mg by subcutaneous injection once daily, [...] week then 1.8 mg sq daily thereafterStart: 73-02-8236enpewl 0.6 mg by subcutaneous injection once daily, [...] week then 1.8 mg sq daily thereafterStart: 56-27-0545rocjvi 0.6 mg by subcutaneous injection once daily, [...] Proliferator Receptor gamma Agonist, ThiazolidinedioneStart: 03-14-2022 End: 97-55-0478lgwt 1 tablet by mouth once dailyPioglitazone 30 mg tablet Discontinued 30 MG PO Daily March 14, 2022 12:00am April 09, 2022 12:27pm predniSONE 10 mg oral tablet (12 sources)Start: 03-14-2022 End: 63-08-8370afsf 2 tablets by mouth once dailyPrednisone 10 mg tablet Discontinued 20 MG PO Daily March 14, 2022 12:00am March 16, 2022 9:32am Start: 03-14-2022 End: 32-20-8045mebw 20 mg by mouth once dailyPrednisone Discontinued 20 MG PO Daily March 14, 2022 12:00am March 16, 2022 9:32amtriamcinolone acetonide 1 mg/ml topical lotion (12 sources)CorticosteroidStart: 08-02-2020 End: 80-45-0232Idwrzmczmacba Acetonide 0.1 % Lotion Discontinued 1 APPLIC TOPICAL Twice daily 0 0 August 02, 2020 1:00am April 09, 2022 12:27pmzinc sulfate 220 mg oral capsule (12 sources)Start: 03-16-2022 End: 67-02-8742Zbkk Sulfate (Orazinc) 50 mg zinc (220 mg) Capsule Discontinued 220 MG PO Daily 31 7 0 March 16, 2022 12:00am April 02, 2022 6:08pm Problems Active Problems Problem ClassificationProblemDateDocumented DateEpisodic/ChronicAcute and unspecified renal failure (16 sources)Injury of kidney; Translations: [Acute kidney failure, unspecified] 61-30-2835DuqcqwdcKsxdbrd disorders (16 sources)Generalized anxiety disorder; Translations: [Generalized anxiety disorder]Onset: 801085-75-5391HgfhsvsRramsmxaf infection; unspecified site (12 sources)Bacteremia due to Staphylococcus aureus; Translations: [Bacteremia] 75-25-8915SxzvgjaaRtxdjbf dysrhythmias (17 sources)Paroxysmal atrial fibrillation; Translations: [Paroxysmal atrial fibrillation]Onset: 743875-17-6789ZesaugpYgcuvloz (9 sources)Bilateral age-related nuclear cataracts; Translations: [Age-related nuclear cataract, bilateral]Onset: 712388-48-6385FbhdnkrCtqltnn kidney disease (19 sources)Chronic kidney disease stage 3; Translations: [Stage 3 chronic kidney disease]Onset: 237792-12-3301PysrzsdMndecpo kidney disease (2 sources)Chronic kidney disease; Translations: [CHRONIC KIDNEY DISEASE STAGE 3A]Onset: 50-47-1878Ydqxxmm obstructive pulmonary disease and bronchiectasis (16 sources)Chronic obstructive lung disease; Translations: [Chronic obstructive pulmonary disease, unspecified]Onset: 162923-14-0728DbhhmpjLtrqmdwhzm heart failure; nonhypertensive (19 sources)Congestive heart failure; Translations: [Heart failure, unspecified] Onset: 271659-60-1611BpiiqyqDrlqnfpz atherosclerosis and other heart disease (20 sources)Atherosclerotic heart disease of [place] coronary artery without angina pectoris; Translations: [Coronary arteriosclerosis]Onset: 05-20-2022 83-81-9343YkhhwxxRqeboigkwj and other anemia (1 source)Anemia; Translations: [Anemia, unspecified]Onset: 65-46-4894Yykavnfu Diabetes mellitus with complications (20 sources)Type 2 diabetes mellitus with hyperglycemia; Translations: [Type 2 diabetes mellitus with diabetic chronic kidney disease]Onset: 25-93-5967Tcursbv Diabetes mellitus without complication (20 sources)Diabetes mellitus; Translations: [Type 2 diabetes mellitus without complications]Onset: 147562-60-9972MxojgxbNznkbysc mellitus without complication (16 sources)Hyperglycemia; Translations: [Hyperglycemia, unspecified]03-14-2022 EpisodicDiseases of white blood cells (12 sources)Leukocytosis; Translations: [Elevated white blood cell count, unspecified]12-42-0963JbshveqDgfximzyi of lipid metabolism (19 sources)Hyperlipidemia, unspecified; Translations: [Dyslipidemia]Onset: 067908-08-9154IogeqpaF Codes: Fall (19 sources)Fall; Translations: [Unspecified fall, initial encounter]Onset: 988688-75-4905VakxfitlEfdsvwfksm disorders (17 sources)Gastro-esophageal reflux disease without esophagitis; Translations: [Gastroesophageal reflux disease]Onset: 246395-99-0520CymxnvlQucnkjkhy hypertension (20 sources)Hypertensive disorder; Translations: [Essential (primary) hypertension]Onset: 678476-90-4734WeaumirJcfda of unknown origin (12 sources)Fever; Translations: [Fever, unspecified]48-05-0925XtugynmuTuipu and electrolyte disorders (20 sources)Hyponatremia; Translations: [Hypo-osmolality and hyponatremia] 23-60-8711SzycxttsJucffezprfgku symptoms and ill-defined conditions (11 sources)Blood in urine; Translations: [Hematuria, unspecified]04-12-2022 EpisodicHypertension with complications and secondary hypertension (3 sources)Hypertensive chronic kidney disease with stage 1 through stage 4 chronic kidney disease, or unspecified chronic kidney disease; Translations: [Hypertensive heart disease with heart failure]Onset: 55-63-5947NywpibwYgprojuf disorders (17 sources)Hypergammaglobulinemia; 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, unspecified]Onset: 701387-65-9861LkguelsZgprrsp and fatigue (20 sources)Asthenia; Translations: [Weakness]Onset: EpisodicMood disorders (5 sources)Major depressive disorder, single episode, unspecified; Translations: [Depressive disorder]Onset: 833835-24-4274ArbcvhaSvjvskv (2 sources)Onychomycosis due to dermatophyte ; Translations: [Tinea unguium] 92-77-5487MlbvyfycHbdkjgantdlusq (16 sources)Unilateral primary osteoarthritis, left hip; Translations: [Primary gonarthrosis, bilateral]Onset: 489740-52-3302EkcfwdzEhcyx aftercare (1 source)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 long (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; Translations: [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]Onset: 23-08-4606GgratqcuEulob aftercare (6 sources)Long-term current use of insulin; Translations: [correction (current) use of insulin]80-17-8435GqiekuiqFpwtl circulatory disease (2 sources)Other specified disorders of arteries and arterioles; Translations: [Other specified disorders of arteries and arterioles]Onset: 96-90-6806Gtxwkfo Other circulatory disease (1 source)Low blood pressure; Translations: [Hypotension, unspecified]Episodic Other connective tissue disease (1 source)Ydwbsozvzfle72-51-6413QyokgvuwLcker gastrointestinal disorders (12 sources)Abdominal mass; Translations: [Intra-abdominal and pelvic swelling, mass and lump, unspecified site]12-07-9984PzaunaetPohxx hematologic conditions (12 sources)ESR raised; Translations: [Elevated erythrocyte sedimentation rate] 99-94-1839OqdegytaHthdn hereditary and degenerative nervous system conditions (16 sources)Restless legs; Translations: [Restless legs syndrome]Onset: 702671-72-7302TpirpgtSmntt liver diseases (1 source)Unspecified cirrhosis of liver; Translations: [UNSPECIFIED CIRRHOSIS OF LIVER]Onset: 87-94-8820IcysjejTfezu liver diseases (1 source)Fatty (change of) liver, not elsewhere classified; Translations: [FATTY CHANGE LIVER NEC]Onset: 50-87-0179LimypayPuegr liver diseases (17 sources)Cirrhosis of liver; Translations: [Unspecified cirrhosis of liver] Onset: 067281-34-2338YedjuwgNnwoi liver diseases (1 source)Steatosis of toevd83-41-7003UutlobmYawrr lower respiratory disease (12 sources)Hypoxemia; Translations: [Hypoxemia]70-07-5847KnfowlhkJftje lower respiratory disease (4 sources)Hypoxemia; Translations: [Hypoxemia]18-85-1283BfmmswbbKmcpx nutritional; endocrine; and metabolic disorders (12 sources)Morbid obesity; Translations: [Morbid (severe) obesity due to excess calories]37-45-9479SynirolDrgaa nutritional; endocrine; and metabolic disorders (12 sources)Hypomagnesemia; Translations: [Hypomagnesemia]72-12-4990GpyqmdbMqrez nutritional; endocrine; and metabolic disorders (7 sources)Morbid (severe) obesity due to excess calories; Translations: [Morbid obesity]Onset: 126109-73-5809VhnznqjTkjkz nutritional; endocrine; and metabolic disorders (3 sources)Body mass index (BMI) 45.0-49.9, adult; Translations: [BODY MASS INDEX BMI 45.0-49.9 ADULT]Onset: 93-35-7479AzywbbsShnuo nutritional; endocrine; and metabolic disorders (1 source)Body mass index (BMI) 50.0-59.9, adult; Translations: [BODY MASS INDEX BMI 50.0-59.9 ADULT]Onset: 13-18-9726FqoeudgAbmbq nutritional; endocrine; and metabolic disorders (15 sources)Hyperammonemia, type III; Translations: [Disorder of urea cycle metabolism, unspecified]Onset: 015128-22-6574BfvyoycQvlsn nutritional; endocrine; and metabolic disorders (7 sources)Failure to rpqhmi09-28-5664UwrglcjxXxpol screening for suspected conditions (not mental disorders or infectious disease) (12 sources)Raised TSH level; Translations: [Other specified abnormal findings of blood chemistry]Onset: 693050-06-5254MnqfhhosDrgyx skin disorders (12 sources)Eruption; Translations: [Rash and other nonspecific skin eruption] 22-64-3341KljekwsrQhiaq skin disorders (2 sources)Dystrophia unguium; Translations: [Nail dystrophy]29-72-4157Dykhqdaq Other upper respiratory disease (15 sources)Allergic rhinitis due to pollen; Translations: [Allergic rhinitis due to pollen]Onset: 968477-29-7817WwskomvFgrd-; endo-; and myocarditis; cardiomyopathy (except that caused by tuberculosis or sexually transmitted disease) (12 sources)Staphylococcal endocarditis; 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 subacute infective endocarditis]78-48-1580YttfoosaHjlrkjjw codes; unclassified (20 sources)Obstructive sleep apnea syndrome; Translations: [Obstructive sleep apnea (adult) (pediatric)]Onset: 071898-45-9337FtatpcjMmqnxzqn codes; unclassified (6 sources)Obstructive sleep apnea (adult) (pediatric); Translations: [Obstructive sleep apnea (adult)(pediatric)]Onset: 017073-04-9473Khpmfvs Residual codes; unclassified (12 sources)Unable to perform personal care activity; Translations: [Other specified health status]21-22-5812WixjnumnSllzxitp codes; unclassified (4 sources)Other specified health status; Translations: [Other specified conditions influencing health status]69-33-1630HltabayhSmjiwzckkpb; intervertebral disc disorders; other back problems (20 sources)Lumbosacral spondylosis with radiculopathy; Translations: [Other spondylosis with radiculopathy, lumbosacral region]Onset: ChronicSpondylosis; intervertebral disc disorders; other back problems (17 sources)Backache; Translations: [Dorsalgia, unspecified]Onset: 02-01-2022 23-58-3208JwclyhgqStzfkqy and intentional self-inflicted injury (4 sources)Suicidal thoughts; Translations: [Suicidal ideations]05-16-2025 EpisodicSuperficial injury; contusion (19 sources)Abrasion, elbow area; Translations: [Abrasion of unspecified elbow, initial encounter]Onset: 668242-64-2519BhmrowbiDyelqau disorders (20 sources)Hypothyroidism; Translations: [Hypothyroidism, unspecified]Onset: 605082-63-7228ZexyqttLukmnlhmkihh (9 sources)Failure to thrive; Translations: [Failure to thrive]04-08-2022 Unclassified (1 source)LOW BACK PAIN, UNSPECIFIED; Translations: [LOW BACK PAIN, UNSPECIFIED] Onset: 31-62-8202Plppwgnwyorg (2 sources)COUGH, UNSPECIFIED; Translations: [COUGH, UNSPECIFIED]Onset: 49-82-8986Efhdwjmojxpm (1 source)CONTACT W/AND (SUSP) EXPOS COVID-19; Translations: [CONTACT W/AND (SUSP) EXPOS COVID-19]Onset: 57-22-0787Ysvjdlwkjpob (2 sources)Neurosurgeon office information per patient requestUnclassified (2 sources)Neurology office information per patient requestUnclassified (2 sources)Call with any medical concerns.Unclassified (1 source)Call to make an appointment with your primary assessment services manager in 2-4 weeks after discharge.Unclassified (1 source)A Restaurant Inspector will call you next day between 8am & 5pm. If you miss this call please call back as soon as possible.Urinary tract infections (12 sources)Acute urinary tract infection; Translations: [Urinary tract infection, site not specified]77-94-5980RjauvgatCxeib infection (16 sources)Disease caused by 2019-nCoV; Translations: [COVID-19]03-14-2022 Episodic Past or Other Problems Problem ClassificationProblemDateDocumented DateEpisodic/ChronicAbdominal pain (1 source)Unspecified abdominal pain; Translations: [UNSPECIFIED ABDOMINAL PAIN] Onset: 97-74-3464IbikxurqEactc bronchitis (1 source)Acute bronchitis, unspecified; Translations: [ACUTE BRONCHITIS UNSPECIFIED]Onset: 66-75-6859RwpnfgczQrepplfkxfs chest pain (1 source)Other chest pain; Translations: [OTHER CHEST PAIN]Onset: 01-28-2022 EpisodicOther aftercare (1 source)correction (current) use of insulin; Translations: [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]Onset: 45-32-6702DwgzfzrdFjpbi connective tissue disease (4 sources)Iliotibial band syndrome, left leg; Translations: [ILIOTIBIAL BAND SYNDROME LEFT LEG]Onset: 85-27-0027YidmzqcbLkfvn connective tissue disease (1 source)Other specified soft tissue disorders; Translations: [OTHER SPEC SOFT TISSUE DISORDERS]Onset: 05-39-1271BatsnurxVmkfh fractures (1 source)Wedge compression fracture of T9-T10 vertebra, subsequent encounter for fracture with routine healing; Translations: [Wedge compression fracture of T9-T10 vertebra, subsequent encounter for fracture with routine healing]Onset: 11-48-0666MewzdveuRnfui injuries and conditions due to external causes (4 sources)Other specified injuries of head, initial encounter; Translations: [OTH SPEC INJURIES HEAD INITIAL ENC]Onset: 60-11-2395HzeuooryLlbzc injuries and conditions due to external causes (1 source)History of falling; Translations: [HISTORY OF FALLING]Onset: 87-41-8842OaexnrlyYxanv lower respiratory disease (3 sources)Shortness of breath; Translations: [SHORTNESS OF BREATH]Onset: 20-13-8986TdsowlaoTpurq non-traumatic joint disorders (3 sources)Pain in left knee; Translations: [PAIN IN LEFT KNEE]Onset: 01-18-2022 EpisodicResidual codes; unclassified (1 source)Edema, unspecified; Translations: [EDEMA UNSPECIFIED]Onset: 01-28-2022 EpisodicResidual codes; unclassified (15 sources)Insomnia; Translations: [Insomnia, unspecified]Onset: 09-16-2023 91-16-6410WmmosohbJliaavzulshw (1 source)COUGH, UNSPECIFIED; Translations: [COUGH, UNSPECIFIED]Onset: 01-24-2022 Results Test NameValueInterpretationReference RangeFacilityBasic Metabolic Panelon 28-97-9908Dkjjw gap [Moles/Vol]8.4 mmol/LNormal6.0-15.0[facility] Physician GroupComment on above:Performed By: #### GLULS #### Point of Care testing ,Calcium [Mass/Vol]8.6 mg/dLNormal8.6-10.3The [facility] Physician GroupComment on above:Performed By: #### GLULS #### Point of Care testing ,Chloride [Moles/Vol]103 mmol/PPtidju13-120Xts [facility] Physician GroupComment on above:Performed By: #### GLULS #### Point of Care testing ,CO2 [Moles/Vol]28.6 mmol/XDxejpk54.0-31.0The [facility] Physician GroupComment on above:Performed By: #### GLULS #### Point of Care testing ,Creatinine [Mass/Vol]1.14 mg/dLNormal0.70-1.30The [facility] Physician [facility] Comment on above:Performed By: #### GLULS #### Point of Care testing ,Creatinine Clr Calc Rvatleap99.75NormalThe [facility] Physician GroupComment on above:Result Comment: PERFORMED BY: [address] [place] [address] PATHOLOGIST CONTACT LENS CUTTER HILDA LEE M.D.Performed By: #### GLULS #### Point of Care testing ,GFR/1.73 sq M.predicted MDRD (S/P/Bld) [Vol rate/Area]mL/min/{1.73_m2}NormalThe [facility] Physician GroupComment on above:Performed By: #### GLULS #### Point of Care testing ,Glucose [Mass/Vol]253 mg/tPVjbx43-433Mnf [facility] Physician GroupComment on above:Result Comment: Random Glucose Reference Range is dependent on time and content of last meal. Glucose of more than 200 mg/dL in a nonstressed, ambulatory subject supports the diagnosis of Diabetes Mellitus. ADA recommended reference rangePerformed By: #### GLULS #### Point of Care testing ,Potassium [Moles/Vol]4.0 mmol/LNormal3.5-5.1The [facility] Physician [facility] Comment on above:Performed By: #### GLULS #### Point of Care testing ,Sodium [Moles/Vol]136 mmol/YBwecll671-061Ywq [facility] Physician GroupComment on above:Performed By: #### GLULS #### Point of Care testing ,Urea nitrogen [Mass/Vol]16 mg/dLNormal7-25The [facility] Physician GroupComment on above:Performed By: #### GLULS #### Point of Care testing ,Complete Blood Count Auto Diffon 28-72-3824Cozccdufb (Bld) [#/Vol]0.1 10*3/uL Normal0.0-0.2The [facility] Physician GroupComment on above:Result Comment: PERFORMED BY: [facility] [address] [place] [address] PATHOLOGIST CONTACT LENS CUTTER HILDA LEE M.D.Performed By: #### GLULS #### Point of Care testing ,Basophils/100 WBC (Bld)1.2 %Normal.The [facility] Physician GroupComment on above:Performed By: #### GLULS #### Point of Care testing ,Eosinophils (Bld) [#/Vol]0.5 10*3/uLHigh0.0-0.45The [facility] Comment on above:Performed By: #### GLULS #### Point of Care testing ,Eosinophils/100 WBC (Bld)7.9 %Normal.The [facility] Physician GroupComment on above:Performed By: #### GLULS #### Point of Care testing ,Erythrocyte distribution width (RBC) [Ratio]17.3 %High12.0-14.8The [facility] Physician GroupComment on above:Performed By: #### GLULS #### Point of Care testing ,Hematocrit (Bld) [Volume fraction]29.8 %Low38.8-50.0The [facility] Physician GroupComment on above:Performed By: #### GLULS #### Point of Care testing ,Hemoglobin (Bld) [Mass/Vol]9.6 g/dLLow13.0-17.0The [facility] Comment on above:Performed By: #### GLULS #### Point of Care testing ,Lymphocytes (Bld) [#/Vol]1.1 10*3/uLNormal1.00-4.8The [facility]ician Group Comment on above:Performed By: #### GLULS #### Point of Care testing ,Lymphocytes/100 WBC (Bld)18.3 %Normal.The [facility] Physician GroupComment on above:Performed By: #### GLULS #### Point of Care testing ,MCH (RBC) [Entitic mass]27.0 pgLow27.5-35.2The [facility] Physician GroupComment on above:Performed By: #### GLULS #### Point of Care testing ,MCV (RBC) [Entitic vol]83.7 pZMdfefk55.5-101The [facility]ician [facility] Comment on above:Performed By: #### GLULS #### Point of Care testing ,Mean Corpuscular HGB Conc32.3 g/dLLow32.5-35.6The [facility] Physician [facility] Comment on above:Performed By: #### GLULS #### Point of Care testing ,Monocytes (Bld) [#/Vol]0.6 10*3/uLNormal0.0-0.8The [facility]ician [facility] Comment on above:Performed By: #### GLULS #### Point of Care testing ,Monocytes/100 WBC (Bld)10.1 %Normal.The [facility] Physician GroupComment on above:Performed By: #### GLULS #### Point of Care testing ,Neutrophils (Bld) [#/Vol]3.9 10*3/uLNormal1.8-7.7The [facility] Physician [facility] Comment on above:Performed By: #### GLULS #### Point of Care testing ,Neutrophils/100 WBC (Bld)62.5 %Normal.The [facility] Physician GroupComment on above:Performed By: #### GLULS #### Point of Care testing ,NRBC%0.0 /100{WBC}Normal0-0.5The [facility] Physician GroupComment on above: Performed By: #### GLULS #### Point of Care testing ,Platelet mean volume (Bld) [Entitic vol]7.7 fLNormal6.6-10.1The [facility] Physician GroupComment on above:Performed By: #### GLULS #### Point of Care testing ,Platelets (Bld) [#/Vol]188 10*3/wSNotxbi466-916Uln [facility] Comment on above:Performed By: #### GLULS #### Point of Care testing ,RBC (Bld) [#/Vol]3.57 10*6/uLLow3.90-5.60The [facility] Physician [facility] CenterComment on above:Performed By: #### GLULS #### Point of Care testing ,WBC (Bld) [#/Vol]6.2 10*3/uLNormal4.1-10.5The [facility] Physician GroupComment on above:Performed By: #### GLULS #### Point of Care testing ,White Blood Count6.2 [CFU]/mLNormal4.1-10.5ThNorth Canyon [facility] Center Physician GroupComment on above:Performed By: #### GLULS #### Point of Care testing ,Glucose Poct Glucometerson 60-31-9840Jqvtzel [Mass/Vol]234 mg/dLNoNovant Health Forsy[facility] Center Physician [facility] CenterComment on above:Result Comment: Random Glucose Reference Range is dependent on time and content of last meal. Glucose of more than 200 mg/dL in a nonstressed, ambulatory subject supports the diagnosis of Diabetes Mellitus. PERFORMED BY: [place] [address] PATHOLOGIST CONTACT LENS CUTTER HILDA LEE M.D.Performed By: #### GLULS #### Point of Care testing ,Glucose [Mass/Vol]174 mg/dLSt. [facility] Physician [facility] CenterComment on above: Result Comment: Random Glucose Reference Range is dependent on time and content of last meal. Glucose of more than 200 mg/dL in a nonstressed, ambulatory subject supports the diagnosis of Diabetes Mellitus. PERFORMED BY: [place] [address] PATHOLOGIST CONTACT LENS CUTTER HILDA LEE M.D.Performed By: #### PT, PLT #### [place] [address] USAGlucose Poct Glucometerson 63-27-4886Wqkajlv [Mass/Vol]224 mg/dLNormalThe [place] Physician GroupComment on above:Result Comment: Random Glucose Reference Range is dependent on time and content of last meal. Glucose of more than 200 mg/dL in a nonstressed, ambulatory subject supports the diagnosis of Diabetes Mellitus. PERFORMED BY: [place] [address] PATHOLOGIST CONTACT LENS CUTTER HILDA LEE M.D.Performed By: #### GLULS #### Point of Care testing ,Glucose [Mass/Vol]233 mg/dLSt. Joseph's Hospital Physician GroupComment on above: Result Comment: Random Glucose Reference Range is dependent on time and content of last meal. Glucose of more than 200 mg/dL in a nonstressed, ambulatory subject supports the diagnosis of Diabetes Mellitus. PERFORMED BY: [place] [address] PATHOLOGIST CONTACT LENS CUTTER HILDA LEE M.D.Performed By: #### GLULS #### Point of Care testing ,Glucose [Mass/Vol]282 mg/dLNoNovant Health Forsy[facility] Center Physician GroupComment on above: Result Comment: Random Glucose Reference Range is dependent on time and content of last meal. Glucose of more than 200 mg/dL in a nonstressed, ambulatory subject supports the diagnosis of Diabetes Mellitus. PERFORMED BY: [place] [address] PATHOLOGIST CONTACT LENS CUTTER HILDA LEE M.D.Performed By: #### GLULS #### Point of Care testing ,Bjsqckk5Cge5: Cleaned MeterNoNovant Health Forsyth Medical Center Physician GroupComment on above: Result Comment: PERFORMED BY: [place] [address] PATHOLOGIST CONTACT LENS CUTTER HILDA LEE M.D.Performed By: #### PT, PLT #### [place] [address] USAGlucose [Mass/Vol]192 mg/dLNoNovant Health [facility] Center Physician GroupComment on above:Result Comment: Random Glucose Reference Range is dependent on time and content of last meal. Glucose of more than 200 mg/dL in a nonstressed, ambulatory subject supports the diagnosis of Diabetes Mellitus.Performed By: #### PT, PLT #### [place] [address] USAGlucose Poct Glucometerson 62-06-5048Oujphgg7Oow9: Cleaned MeterNoNovant Health Forsy[facility] Center Physician GroupComment on above:Result Comment: PERFORMED BY: [place] [address] PATHOLOGIST CONTACT LENS CUTTER HILDA LEE M.D.Performed By: #### PT, PLT #### [place] [address] USAGlucose [Mass/Vol]214 mg/dLNoNovant Health [facility] Physician GroupComment on above:Result Comment: Random Glucose Reference Range is dependent on time and content of last meal. Glucose of more than 200 mg/dL in a nonstressed, ambulatory subject supports the diagnosis of Diabetes Mellitus.Performed By: #### PT, PLT #### [place] [address] [id number]: Cleaned MeterNoNovant Health Forsy[facility] Center Physician GroupComment on above:Result Comment: PERFORMED BY: [place] [address] PATHOLOGIST CONTACT LENS CUTTER HILDA LEE M.D.Performed By: #### PT, PLT #### [place] [address] USAGlucose [Mass/Vol]243 mg/dLNoNovant Health [facility] Physician GroupComment on above:Result Comment: Random Glucose Reference Range is dependent on time and content of last meal. Glucose of more than 200 mg/dL in a nonstressed, ambulatory subject supports the diagnosis of Diabetes Mellitus.Performed By: #### PT, PLT #### [place] [address] [id number]: Cleaned MeterNormBroward Health North Physician GroupComment on above:Result Comment: PERFORMED BY: [place] [address] PATHOLOGIST CONTACT LENS CUTTER HILDA LEE M.D.Performed By: #### PT, PLT #### [place] [address] USAGlucose [Mass/Vol]229 mg/dLNoNovant Health [facility] Physician GroupComment on above:Result Comment: Random Glucose Reference Range is dependent on time and content of last meal. Glucose of more than 200 mg/dL in a nonstressed, ambulatory subject supports the diagnosis of Diabetes Mellitus.Performed By: #### PT, PLT #### [place] [address] USAGlucose [Mass/Vol]174 mg/dLNoNovant Health [facility] Physician GroupComment on above:Result Comment: Random Glucose Reference Range is dependent on time and content of last meal. Glucose of more than 200 mg/dL in a nonstressed, ambulatory subject supports the diagnosis of Diabetes Mellitus. PERFORMED BY: [place] [address] PATHOLOGIST CONTACT LENS CUTTER HILDA LEE M.D.Performed By: #### PT, PLT #### [place] [address] USAGlucose Poct Glucometerson 46-75-4715Vrnufge [Mass/Vol]244 mg/dLNoNovant Health [facility] Physician GroupComment on above:Result Comment: Random Glucose Reference Range is dependent on time and content of last meal. Glucose of more than 200 mg/dL in a nonstressed, ambulatory subject supports the diagnosis of Diabetes Mellitus. PERFORMED BY: [place] [address] PATHOLOGIST CONTACT LENS CUTTER HILDA LEE M.D.Performed By: #### PT, PLT #### [place] [address] [id number]: Cleaned MeterNoNovant Health [facility] Physician GroupComment on above:Result Comment: PERFORMED BY: [place] [address] PATHOLOGIST CONTACT LENS CUTTER HILDA LEE M.D.Performed By: #### PT, PLT #### [place] [address] [place] [address] USAGlucose [Mass/Vol]221 mg/dLNoNovant Health [facility] Physician GroupComment on above:Result Comment: Random Glucose Reference Range is dependent on time and content of last meal. Glucose of more than 200 mg/dL in a nonstressed, ambulatory subject supports the diagnosis of Diabetes Mellitus.Performed By: #### PT, PLT #### [facility] [address] [place] [address] [id number]: Cleaned MeterNoNovant Health Fors[facility] Center Physician GroupComment on above:Result Comment: PERFORMED BY: [place] [address] PATHOLOGIST CONTACT LENS CUTTER HILDA LEE M.D.Performed By: #### GLULS #### Point of Care testing ,Glucose [Mass/Vol]268 mg/dLSt. Joseph's Hospital Physician GroupComment on above: Result Comment: Random Glucose Reference Range is dependent on time and content of last meal. Glucose of more than 200 mg/dL in a nonstressed, ambulatory subject supports the diagnosis of Diabetes Mellitus.Performed By: #### GLULS #### Point of Care testing ,Glucose [Mass/Vol]208 mg/dLSt. Joseph's Hospital Physician GroupComment on above: Result Comment: Random Glucose Reference Range is dependent on time and content of last meal. Glucose of more than 200 mg/dL in a nonstressed, ambulatory subject supports the diagnosis of Diabetes Mellitus. PERFORMED BY: [place] [address] PATHOLOGIST CONTACT LENS CUTTER HILDA LEE M.D.Performed By: #### PT, PLT #### [facility] [address] [place] [address] USAGlucose Poct Glucometerson 51-01-6234Pamefqu [Mass/Vol]226 mg/dLSt. Joseph's Hospital Physician GroupComment on above:Result Comment: Random Glucose Reference Range is dependent on time and content of last meal. Glucose of more than 200 mg/dL in a nonstressed, ambulatory subject supports the diagnosis of Diabetes Mellitus. PERFORMED BY: [address] [place] [address] PATHOLOGIST CONTACT LENS CUTTER HILDA LEE M.D.Performed By: #### GLULS #### Point of Care testing ,Glucose [Mass/Vol]224 mg/dLNoNovant Health Forsyth Medical Center Physician GroupComment on above: Result Comment: Random Glucose Reference Range is dependent on time and content of last meal. Glucose of more than 200 mg/dL in a nonstressed, ambulatory subject supports the diagnosis of Diabetes Mellitus. PERFORMED BY: [place] [address] PATHOLOGIST CONTACT LENS CUTTER HILDA LEE M.D.Performed By: #### TSH3 wRFLX, LIPID, [id number] #### [place] [address] USAGlucose [Mass/Vol]225 mg/dLNoNovant Health Forsyth Medical Center Physician GroupComment on above:Result Comment: Random Glucose Reference Range is dependent on time and content of last meal. Glucose of more than 200 mg/dL in a nonstressed, ambulatory subject supports the diagnosis of Diabetes Mellitus. PERFORMED BY: [place] [address] PATHOLOGIST CONTACT LENS CUTTER HILDA LEE M.D.Performed By: #### TSH3 wRFLX, LIPID, [id number] #### [place] [address] USAGlucose [Mass/Vol]178 mg/dLNoNovant Health Forsyth Medical Center Physician GroupComment on above:Result Comment: Random Glucose Reference Range is dependent on time and content of last meal. Glucose of more than 200 mg/dL in a nonstressed, ambulatory subject supports the diagnosis of Diabetes Mellitus. PERFORMED BY: [place] [address] PATHOLOGIST CONTACT LENS CUTTER HILDA LEE M.D.Performed By: #### TSH3 wRFLX, LIPID, [id number] #### [place] [address] USAA1C with Estimated Average Gluon 84-52-0814Kpbtxde [Mass/Vol]197 mg/dLNoResearch Medical Center-Bro[facility] Campuslands Physician GroupComment on above:Result Comment: PERFORMED BY: [place] [address] PATHOLOGIST CONTACT LENS CUTTER HILDA LEE M.D.Performed By: #### TSH3 wRFLX, LIPID, [id number] #### [place] [id number] IRSDsM2y (Bld) [Mass fraction]8.5 %High4.3-5.6The [facility] Physician GroupComment on above:Result Comment: Increased risk for diabetes: 5.7 - 6.4 diabetes: >6.4 glycemic control for adults with diabetes: <7.0Performed By: #### TSH3 wRFLX, LIPID, [id number] #### [place] [address] USAComplete Blood Count Auto Diffon 48-86-6437Lpseisioe (Bld) [#/Vol]0.1 10*3/uLNormal0.0-0.2The [facility] Physician GroupComment on above: Result Comment: PERFORMED BY: [place] [address] PATHOLOGIST CONTACT LENS CUTTER HILDA LEE M.D.Performed By: #### TSH3 wRFLX, LIPID, [id number] #### [place] [id number] USABasophils/100 WBC (Bld)1.3 %Normal.The [facility] Physician GroupComment on above:Performed By: #### TSH3 wRFLX, LIPID, [id number] #### [address] [address] USAEosinophils (Bld) [#/Vol]0.4 10*3/uLNormal0.0-0.45The [facility] Physician GroupComment on above:Performed By: #### TSH3 wRFLX, LIPID, [id number] #### [place] [id number] USAEosinophils/100 WBC (Bld)7.5 %Normal.The [facility] Physician GroupComment on above:Performed By: #### TSH3 wRFLX, LIPID, [id number] #### [place] [address] USAErythrocyte distribution width (RBC) [Ratio]17.6 %High 12.0-14.8The [facility] Physician GroupComment on above:Performed By: #### TSH3 wRFLX, LIPID, [id number] #### [place] [address] USAHematocrit (Bld) [Volume fraction]29.8 %Low38.8-50.0The [facility] Physician GroupComment on above:Performed By: #### TSH3 wRFLX, LIPID, [id number] #### [place] [address] USAHemoglobin (Bld) [Mass/Vol]9.7 g/dLLow13.0-17.0The [facility] Physician GroupComment on above:Performed By: #### TSH3 wRFLX, LIPID, [id number] #### [place] [address] USALymphocytes (Bld) [#/Vol]1.2 10*3/uLNormal1.00-4.8The [facility] Physician GroupComment on above:Performed By: #### TSH3 wRFLX, LIPID, [id number] #### [place] [address] USALymphocytes/100 WBC (Bld)24.0 %Normal.The [facility] Physician GroupComment on above:Performed By: #### TSH3 wRFLX, LIPID, [id number] #### [place] [address] USAMCH (RBC) [Entitic mass]27.3 pgLow27.5-35.2The [facility] Physician GroupComment on above:Performed By: #### TSH3 wRFLX, LIPID, [id number] #### [place] [address] USAMCV (RBC) [Entitic vol]83.8 aLIgjkyu48.5-101The [facility] Physician GroupComment on above:Performed By: #### TSH3 wRFLX, LIPID, [id number] #### [place] [address] USAMean Corpuscular HGB Conc32.6 g/dLAexbhk77.5-35.6The [facility] Physician GroupComment on above:Performed By: #### TSH3 wRFLX, LIPID, [id number] #### [place] [address] USAMonocytes (Bld) [#/Vol]0.5 10*3/uLNormal0.0-0.8The [facility] Physician GroupComment on above:Performed By: #### TSH3 wRFLX, LIPID, [id number] #### [place] [address] USAMonocytes/100 WBC (Bld)10.7 %Normal.The [facility] Physician GroupComment on above:Performed By: #### TSH3 wRFLX, LIPID, [id number] #### [place] [address] USANeutrophils (Bld) [#/Vol]2.8 10*3/uLNormal1.8-7.7The [facility] Physician GroupComment on above:Performed By: #### TSH3 wRFLX, LIPID, [id number] #### [place] [address] USANeutrophils/100 WBC (Bld)56.5 %Normal.The [facility] Physician GroupComment on above:Performed By: #### TSH3 wRFLX, LIPID, [id number] #### [place] [address] USANRBC%0.2 /100{WBC}Normal0-0.5The [facility] Physician Group Comment on above:Performed By: #### TSH3 wRFLX, LIPID, [id number] #### [facility] [address] [place] [address] USAPlatelet mean volume (Bld) [Entitic vol]7.8 fLNormal 6.6-10.1The [facility] Physician GroupComment on above:Performed By: #### TSH3 wRFLX, LIPID, [id number] #### [place] [address] USAPlatelets (Bld) [#/Vol]198 10*3/sQYprfvj334-764Bpc [facility] Physician GroupComment on above:Performed By: #### TSH3 wRFLX, LIPID, [id number] #### [place] [address] USARBC (Bld) [#/Vol]3.55 10*6/uLLow3.90-5.60The [facility] Physician GroupComment on above:Performed By: #### TSH3 wRFLX, LIPID, [id number] #### [place] [address] USAWBC (Bld) [#/Vol]5.0 10*3/uLNormal4.1-10.5The [facility] Physician GroupComment on above:Performed By: #### TSH3 wRFLX, LIPID, [id number] #### [place] [address] USAWhite Blood Count5.0 [CFU]/mLNormal4.1-10.5The [facility] Physician GroupComment on above:Performed By: #### TSH3 wRFLX, LIPID, [id number] #### [place] [address] USAComprehensive Metabolic Panelon 42-64-8147Cscplrf [Mass/Vol]3.0 g/dLLow3.5-5.7The [facility] Physician GroupComment on above: Performed By: #### TSH3 wRFLX, LIPID, [id number] #### [place] [address] USAAlbumin/Globulin [Mass ratio]0.8 {ratio}NormalThe [facility] Physician GroupComment on above:Performed By: #### TSH3 wRFLX, LIPID, [id number] #### [facility] [address] [place] [address] USAALP [Catalytic activity/Vol]178 U/SQvpf08-560Wbw [facility] Physician GroupComment on above:Performed By: #### TSH3 wRFLX, LIPID, [id number] #### [place] [address] USAALT [Catalytic activity/Vol]11 U/LNormal7-52The [facility] Physician GroupComment on above:Performed By: #### TSH3 wRFLX, LIPID, [id number] #### [place] [address] USAAnion gap [Moles/Vol]10.8 mmol/LNormal6.0-15.0The [facility] Physician GroupComment on above:Performed By: #### TSH3 wRFLX, LIPID, [id number] #### [place] [address] USAAST [Catalytic activity/Vol]21 U/DUkmhhf39-08Ogc [facility] Physician GroupComment on above:Performed By: #### TSH3 wRFLX, LIPID, [id number] #### [place] [address] USABilirubin [Mass/Vol]0.4 mg/dLNormal0.3-1.0The [facility] Physician GroupComment on above:Performed By: #### TSH3 wRFLX, LIPID, [id number] #### [place] [address] USACalcium [Mass/Vol]8.5 mg/dLLow8.6-10.3The [facility] Physician GroupComment on above:Performed By: #### TSH3 wRFLX, LIPID, [id number] #### [place] [address] USAChloride [Moles/Vol]104 mmol/AHvutme24-557Jrw [facility] Physician GroupComment on above:Performed By: #### TSH3 wRFLX, LIPID, [id number] #### [place] [address] USACO2 [Moles/Vol]26.5 mmol/FLcifze66.0-31.0The [facility] Physician GroupComment on above:Performed By: #### TSH3 wRFLX, LIPID, [id number] #### [facility] [address] [place] [address] USACreatinine [Mass/Vol]1.20 mg/dLNormal0.70-1.30The [facility] Physician GroupComment on above:Performed By: #### TSH3 wRFLX, LIPID, [id number] #### [facility] [address] [place] [address] USACreatinine Clr Calc Enyyqbuy67.21NoNovant Health Forsy[facility] Center Physician GroupComment on above:Performed By: #### TSH3 wRFLX, LIPID, [id number] #### [place] [address] USAGFR/1.73 sq M.predicted MDRD (S/P/Bld) [Vol rate/Area] mL/min/{1.73_m2}NormalThe [facility] Physician GroupComment on above:Performed By: #### TSH3 wRFLX, LIPID, [id number] #### [place] [address] USAGlobulin (S) [Mass/Vol]3.9 g/dLNoNovant Health [facility]yth [facility] Center Physician GroupComment on above:Performed By: #### TSH3 wRFLX, LIPID, [id number] #### [place] [address] USAGlucose [Mass/Vol]245 mg/mZIpdl11-103Qbq [facility] Physician GroupComment on above:Result Comment: Random Glucose Reference Range is dependent on time and content of last meal. Glucose of more than 200 mg/dL in a nonstressed, ambulatory subject supports the diagnosis of Diabetes Mellitus. ADA recommended reference rangePerformed By: #### TSH3 wRFLX, LIPID, [id number] #### [place] [address] USAPotassium [Moles/Vol]4.3 mmol/LNormal3.5-5.1The [facility] Physician GroupComment on above:Performed By: #### TSH3 wRFLX, LIPID, [id number] #### [place] [address] USAProtein [Mass/Vol]6.9 g/dLNormal6.4-8.9The [facility] Physician GroupComment on above:Performed By: #### TSH3 wRFLX, LIPID, [id number] #### [place] [address] USASodium [Moles/Vol]137 mmol/LYkgzrl975-895Rid [facility] Physician GroupComment on above:Performed By: #### TSH3 wRFLX, LIPID, [id number] #### [place] [address] USAUrea nitrogen [Mass/Vol]21 mg/dLNormal7-25The [facility] Physician GroupComment on above:Performed By: #### TSH3 wRFLX, LIPID, [id number] #### [place] [address] USAFerritinon 89-87-2679Ykfizmuo [Mass/Vol]7.6 ng/mLLow 23.9-336.2The [facility] Physician GroupComment on above:Performed By: #### TSH3 wRFLX, LIPID, [id number] #### [place] [address] USAGlucose Poct Glucometerson 43-34-4877Ozdznik [Mass/Vol]247 mg/dLNormBroward Health North Physician GroupComment on above:Result Comment: Random Glucose Reference Range is dependent on time and content of last meal. Glucose of more than 200 mg/dL in a nonstressed, ambulatory subject supports the diagnosis of Diabetes Mellitus. PERFORMED BY: [place] [address] PATHOLOGIST CONTACT LENS CUTTER HILDA LEE M.D.Performed By: #### PT, PLT #### [place] [address] USAGlucose [Mass/Vol]296 mg/dLNormBroward Health North Physician GroupComment on above:Result Comment: Random Glucose Reference Range is dependent on time and content of last meal. Glucose of more than 200 mg/dL in a nonstressed, ambulatory subject supports the diagnosis of Diabetes Mellitus. PERFORMED BY: [place] [address] PATHOLOGIST CONTACT LENS CUTTER HILDA LEE M.D.Performed By: #### TSH3 wRFLX, LIPID, [id number] #### [place] [address] USAGlucose [Mass/Vol]348 mg/dLNoNovant Health Forsyth Medical Center Physician GroupComment on above:Result Comment: Random Glucose Reference Range is dependent on time and content of last meal. Glucose of more than 200 mg/dL in a nonstressed, ambulatory subject supports the diagnosis of Diabetes Mellitus. PERFORMED BY: [place] [address] PATHOLOGIST CONTACT LENS CUTTER HILDA LEE M.D.Performed By: #### PT, PLT #### [place] [address] NCOHawqree6Zaq9: Cleaned MeterNoNovant Health Forsyth Medical Center Physician GroupComment on above:Result Comment: PERFORMED BY: [place] [address] PATHOLOGIST CONTACT LENS CUTTER HILDA LEE M.D.Performed By: #### PT, PLT #### [place] [address] USAGlucose [Mass/Vol]246 mg/dLSt. Joseph's Hospital Physician GroupComment on above:Result Comment: Random Glucose Reference Range is dependent on time and content of last meal. Glucose of more than 200 mg/dL in a nonstressed, ambulatory subject supports the diagnosis of Diabetes Mellitus.Performed By: #### PT, PLT #### [place] [id number] USAIron and TIBC Profileon 05-22-2025% Iron Saturation4.7 % Xjp69-84Ldd [facility] Physician GroupComment on above:Performed By: #### TSH3 wRFLX, LIPID, [id number] #### [facility] [address] [place] [address] USAIron [Mass/Vol]18 ug/nVIuw53-813Seh [facility] Physician GroupComment on above:Performed By: #### TSH3 wRFLX, LIPID, [id number] #### [facility] [address] [place] [address] USATotal Iron Binding Tfauskid294 ug/aGGwzlss768-523Nlv [facility] Physician GroupComment on above:Performed By: #### TSH3 wRFLX, LIPID, [id number] #### [place] [address] USATransferrin [Mass/Vol]271 mg/jNFrshwu693-198Mxm [facility] Physician GroupComment on above:Performed By: #### TSH3 wRFLX, LIPID, [id number] #### [place] [address] USAMagnesiumon 25-43-5031Lwmjedxqg [Mass/Vol]1.4 mg/dLLow 1.9-2.7The [facility] Physician GroupComment on above:Performed By: #### TSH3 wRFLX, LIPID, [id number] #### [facility] [address] [place] [address] USAVit. B12/Folate Profileon 56-88-0617Hinqfiqym (Vitamin B12) [Mass/Vol]247 pg/yBGqhdlp539-593Ida [facility] Physician GroupComment on above:Performed By: #### TSH3 wRFLX, LIPID, [id number] #### [facility] [address] [place] [address] LVUVhrvxh73.4 ng/mLNormal>5.9The [facility] Physician Group Comment on above:Result Comment: Folate reference range: >5.9 ng/ml The WHO technical consultation on folate and vitamin b12 deficiencies has determined that folate concentrations less than 4 ng/ml are considered deficient. PERFORMED BY: [place] [address] PATHOLOGIST CONTACT LENS CUTTER HILDA LEE M.D.Performed By: #### TSH3 wRFLX, LIPID, [id number] #### [address] [address] USAGlucose Poct Glucometerson 48-00-1161Rxjfpmw8Bdf9: Cleaned MeterNoNovant Health Forsyth Medical Center Physician GroupComment on above:Result Comment: PERFORMED BY: [place] [address] PATHOLOGIST CONTACT LENS CUTTER HILDA LEE M.D.Performed By: #### PT, PLT #### [place] [id number] USAGlucose [Mass/Vol]352 mg/dLNoNovant Health Forsyth Medical Center Physician GroupComment on above:Result Comment: Random Glucose Reference Range is dependent on time and content of last meal. Glucose of more than 200 mg/dL in a nonstressed, ambulatory subject supports the diagnosis of Diabetes Mellitus.Performed By: #### PT, PLT #### [place] [address] USAGlucose [Mass/Vol]266 mg/dLNoNovant Health [facility]yth [facility] Center Physician GroupComment on above:Result Comment: Random Glucose Reference Range is dependent on time and content of last meal. Glucose of more than 200 mg/dL in a nonstressed, ambulatory subject supports the diagnosis of Diabetes Mellitus. PERFORMED BY: [place] [address] PATHOLOGIST CONTACT LENS CUTTER HILDA LEE M.D.Performed By: #### TSH3 wRFLX, LIPID, [id number] #### [place] [id number] USAGlucose [Mass/Vol]167 mg/dLSt. Joseph's Hospital Physician GroupComment on above:Result Comment: Random Glucose Reference Range is dependent on time and content of last meal. Glucose of more than 200 mg/dL in a nonstressed, ambulatory subject supports the diagnosis of Diabetes Mellitus. PERFORMED BY: [address] [address] PATHOLOGIST CONTACT LENS CUTTER HILDA LEE M.D.Performed By: #### TSH3 wRFLX, LIPID, [id number] #### [facility] [address] [place] [address] USAGlucose Poct Glucometerson 17-51-1475Mmpztpk [Mass/Vol]202 mg/dLNoNovant Health Forsyth Medical Center Physician GroupComment on above:Result Comment: Random Glucose Reference Range is dependent on time and content of last meal. Glucose of more than 200 mg/dL in a nonstressed, ambulatory subject supports the diagnosis of Diabetes Mellitus. PERFORMED BY: [place] [address] PATHOLOGIST CONTACT LENS CUTTER HILDA LEE M.D.Performed By: #### TSH3 wRFLX, LIPID, [id number] #### [place] [address] USAGlucose [Mass/Vol]196 mg/dLNoNovant Health Forsyth Medical Center Physician GroupComment on above:Result Comment: Random Glucose Reference Range is dependent on time and content of last meal. Glucose of more than 200 mg/dL in a nonstressed, ambulatory subject supports the diagnosis of Diabetes Mellitus. PERFORMED BY: [place] [address] PATHOLOGIST CONTACT LENS CUTTER HILDA LEE M.D.Performed By: #### PT, PLT #### [address] [address] USAGlucose Poct Glucometerson 01-01-8358Judaujg [Mass/Vol]310 mg/dLNoNovant Health Forsyth [facility] Center Physician GroupComment on above:Result Comment: Random Glucose Reference Range is dependent on time and content of last meal. Glucose of more than 200 mg/dL in a nonstressed, ambulatory subject supports the diagnosis of Diabetes Mellitus. PERFORMED BY: [place] [address] PATHOLOGIST CONTACT LENS CUTTER HILDA LEE M.D.Performed By: #### TSH3 wRFLX, LIPID, [id number] #### [address] [address] USAGlucose [Mass/Vol]175 mg/dLNormBroward Health North Physician GroupComment on above:Result Comment: Random Glucose Reference Range is dependent on time and content of last meal. Glucose of more than 200 mg/dL in a nonstressed, ambulatory subject supports the diagnosis of Diabetes Mellitus. PERFORMED BY: [place] [address] PATHOLOGIST CONTACT LENS CUTTER HILDA LEE M.D.Performed By: #### PT, PLT #### [facility] [address] [place] [address] USAGlucose Poct Glucometerson 43-74-0197Viglrqq [Mass/Vol]234 mg/dLNormBroward Health North Physician GroupComment on above:Result Comment: Random Glucose Reference Range is dependent on time and content of last meal. Glucose of more than 200 mg/dL in a nonstressed, ambulatory subject supports the diagnosis of Diabetes Mellitus. PERFORMED BY: [place] [address] PATHOLOGIST CONTACT LENS CUTTER HILDA LEE M.D.Performed By: #### TSH3 wRFLX, LIPID, [id number] #### [place] [address] USAGlucose [Mass/Vol]148 mg/dLNoNovant Health Forsyth Medical Center Physician GroupComment on above:Result Comment: Random Glucose Reference Range is dependent on time and content of last meal. Glucose of more than 200 mg/dL in a nonstressed, ambulatory subject supports the diagnosis of Diabetes Mellitus. PERFORMED BY: [place] [address] PATHOLOGIST CONTACT LENS CUTTER HILDA LEE M.D.Performed By: #### PT, PLT #### [place] [id number] USAECG 12 lead ECGon 59-91-7269WUZ 12 lead ECGCLEVELAND [facility] [place] [id number] Electrocardiograph Report Signed Patient: Evelin Patterson MR#: [id number] 005 : 1955 Acct:[id number] Age/Sex: 69 / M ADM Date: 05/16/25 Loc: Room: [address] [place] [address] Type: ADM IN Attending Dr: Juan A [...] MUS Signed By Shawn Ireland MD 1 1112[facility] Medical CenterGlucose Poct Glucometerson 02-72-7615Shwbswx8Utb8: Cleaned MeterTracy Medical CenterComment on above:Result Comment: PERFORMED BY: [place] [address] PATHOLOGIST CONTACT LENS CUTTER HILDA LEE M.D.Performed By: #### PT, PLT #### [place] [address] USAGlucose [Mass/Vol]186 mg/dLSt. Joseph's Hospital Physician [facility] Medical CenterComment on above:Result Comment: Random Glucose Reference Range is dependent on time and content of last meal. Glucose of more than 200 mg/dL in a nonstressed, ambulatory subject supports the diagnosis of Diabetes Mellitus.Performed By: #### PT, PLT #### [place] [address] USAGlucose [Mass/Vol]180 mg/dLSt. Joseph's Hospital Physician [facility] Medical CenterComment on above:Result Comment: Random Glucose Reference Range is dependent on time and content of last meal. Glucose of more than 200 mg/dL in a nonstressed, ambulatory subject supports the diagnosis of Diabetes Mellitus. PERFORMED BY: [place] [address] PATHOLOGIST CONTACT LENS CUTTER HILDA LEE M.D.Performed By: #### PT, PLT #### [facility] [address] [place] [address] USAAlanine aminotransferase [Enzymatic activity/volume] in Serum or PlasmaOrdered By: Carmine Gutierrez on 17-41-0983IXJ [Catalytic activity/Vol]13 U/LNormal7-52[facility] GeneralComment on above: Performed By: #### GLULS #### Point of Care testing ,Albumin [Mass/volume] in Serum or Plasma by Bromocresol green (BCG) dye binding methoOrdered By: Cramine Gutierrez on 71-13-1889Ufkrokn BCG dye [Mass/Vol]3.3 g/dL Low3.5-5.7FMorrow County HospitalAlkaline phosphatase [Enzymatic activity/volume] in Serum or PlasmaOrdered By: Carmine Gutierrez on 52-50-8268EWT [Catalytic activity/Vol]149 U/JPsij61-674QkdprxhguCleveland Clinic [facility] General Comment on above:Performed By: #### GLULS #### Point of Care testing ,Amphetamine Screen Ql (U)Ordered By: Carmine Gutierrez on 21-80-0551Zhopysfgxnkk Ql (U)NegativeNegativeCleveland Clinic Akron GeneralAppearance of UrineOrdered By: Carmine Gutierrez on 03-39-6188Urnuxnkfaq (U)ClearNormalClearCleveland Clinic Akron GeneralComment on above:Order Comment: PER YOUTH OFFICER AGUILA PT ADMITTED FROM ER. USE ER BLOOD-[id number] By: #### TSH3 wRFLX, LIPID, [id number] #### [facility] [address] [place], [place] [address] USAAspartate aminotransferase [Enzymatic activity/volume] in Serum or PlasmaOrdered By: Carmine Gutierrez on 56-22-8845PBT [Catalytic activity/Vol]25 U/GJnbupo20-55MqwmzsbwkCleveland Clinic Akron GeneralComment on above: Performed By: #### GLULS #### Point of Care testing ,Bacteria [Presence] in Urine by AutomatedOrdered By: Carmine Gutierrez on 05-16-2025 Bacteria Auto Ql (U)Rare [HPF]None SeenCleveland Clinic Akron General Barbiturates [Presence] in Urine by Screen methodOrdered By: Carmine Gutierrez on 50-42-8922Vydutwpaycvr Screen Ql (U)NegativeNegLima City HospitalBasophils [#/volume] in Blood by Automated countOrdered By: Carmine Gutierrez on 16-55-5752Fgvlgguxl (Bld) [#/Vol]0.1 10*3/uLNormal0.0-0.2FMorrow County HospitalComment on above:Result Comment: PERFORMED BY: [address] [place] [address] PATHOLOGIST CONTACT LENS CUTTER HILDA LEE M.D.Performed By: #### GLULS #### Point of Care testing ,Basophils/100 leukocytes in Blood by Automated countOrdered By: Carmine Gutierrez on 03-38-6477Hiavozdct/100 WBC (Bld)1.4 %Normal.[facility] Comment on above:Performed By: #### GLULS #### Point of Care testing ,Benzodiazepines Screen Ql (U)Ordered By: Carmine Gutierrez on 05-16-2025 Benzodiazepines Ql (U)NegativeNegLima City Hospital Benzoylecgonine [Presence] in Urine by Screen methodOrdered By: Carmine Gutierrez on 21-77-3955Gebspthexoslomf Screen Ql (U)NegativeNegLima City HospitalBilirubin Test strip Ql (U)Ordered By: Carmine Gutierrez on 05-16-2025 Bilirubin Ql (U)NegativeNegLima City HospitalBilirubin.total [Mass/volume] in Serum or PlasmaOrdered By: Carmine Gutierrez on 56-20-6368Tzngtltlr [Mass/Vol]0.5 mg/dLNormal0.3-1.0[facility] GeneralComment on above:Performed By: #### GLULS #### Point of Care testing ,Calcium [Mass/volume] in Serum or PlasmaOrdered By: Carmine Gutierrez on 05-16-2025 Calcium [Mass/Vol]8.4 mg/dLLow8.6-10.3FMorrow County HospitalComment on above:Performed By: #### GLULS #### Point of Care testing ,Cannabinoids [Presence] in Urine by Screen methodOrdered By: Carmine Gutierrez on 58-51-9960Gcreetfsdtbp Screen Ql (U)NegativeNegativeCleveland Clinic Akron GeneralComment on above:These are unconfirmed results and should not be used for legal purposes. Drug Cut-Off Concentration: AMPH 1000 ng/mL FRANK 200 ng/mL SAFIA 200 ng/mL COCM 300 ng/mL OP 300 ng/mL PCP 25 ng/mL THC 20 ng/mLCarbon dioxide, total [Moles/volume] in Serum or PlasmaOrdered By: Carmine Gutierrez on 58-99-5327AK3 [Moles/Vol]25.4 mmol/IEblfxk87.0-31.0[facility] GeneralComment on above:Performed By: #### GLULS #### Point of Care testing ,Chloride [Moles/volume] in Serum or PlasmaOrdered By: Carmine Gutierrez on 03-50-2051Pgecgvyv [Moles/Vol]105 mmol/XBrtkyp69-599SbmxmfewoCleveland Clinic Akron GeneralComment on above:Performed By: #### GLULS #### Point of Care testing ,Color of Urine by AutoOrdered By: Carmine Gutierrez on 04-59-5644Qmqul (U)Yellow NormalYellowCleveland Clinic Akron GeneralComment on above:Order Comment: PER YOUTH OFFICER AGUILA PT ADMITTED FROM ER. USE ER BLOOD-[id number] By: #### TSH3 wRFLX, LIPID, [id number] #### [facility] [address] [place] [address] USAComplete Blood Count Auto Diffon 51-09-4897Hwoq Corpuscular HGB Conc32.3 g/dLLow32.5-35.6The [facility] Physician GroupComment on above:Performed By: #### GLULS #### Point of Care testing ,Monocytes/100 WBC (Bld)20.40 %High0.00-20.00The [facility] Comment on above:Result Comment: For adults in ED, MDW > 20.0 may be associated with a higher risk of sepsis during the first 12 hrs of hospital admissionPerformed By: #### GLULS #### Point of Care testing ,NRBC%0.0 /100{WBC}Normal0-0.5The [facility] Physician GroupComment on above: Performed By: #### GLULS #### Point of Care testing ,White Blood Count5.7 [CFU]/mLNormal4.1-10.5The [facility] Physician GroupComment on above:Performed By: #### GLULS #### Point of Care testing ,Comprehensive Metabolic Panelon 37-85-7708Yftglmy [Mass/Vol]3.3 g/dLLow3.5-5.7 The [facility] Physician GroupComment on above:Performed By: #### GLULS #### Point of Care testing ,Creatinine Clr Calc Porxroey36.78NormalThe [facility] Physician GroupComment on above:Performed By: #### GLULS #### Point of Care testing ,GFR/1.73 sq M.predicted MDRD (S/P/Bld) [Vol rate/Area]51.534 mL/min/{1.73_m2} NormalThe [facility] Physician GroupComment on above:Performed By: #### GLULS #### Point of Care testing ,Creatinine [Mass/volume] in Serum or PlasmaOrdered By: Carmine Gutierrez on 76-37-6372Cdqzedgsjt [Mass/Vol]1.48 mg/dLHigh0.70-1.30[facility] GeneralComment on above:Performed By: #### GLULS #### Point of Care testing ,Dipstick and Microscopicon 75-48-3326Btnvdbno,UrineRareNormalNone SeenThe [facility] Physician GroupComment on above:Order Comment: PER YOUTH OFFICER AGUILA PT ADMITTED FROM ER. USE ER BLOOD-[id number] By: #### TSH3 wRFLX, LIPID, [id number] #### [facility] [address] [place] [address] USABilirubin,UrineNegativeNormalNegativeThe [facility] Physician GroupComment on above:Order Comment: PER YOUTH OFFICER AGUILA PT ADMITTED FROM ER. USE ER BLOOD-[id number] By: #### TSH3 wRFLX, LIPID, [id number] #### [place] [address] USAGlucose Ql (U)200 mg/dLNormalNormBroward Health North Physician GroupComment on above:Order Comment: PER YOUTH OFFICER AGUILA PT ADMITTED FROM ER. USE ER BLOOD-[id number] By: #### TSH3 wRFLX, LIPID, [id number] #### [place] [address] USAGranular Casts, Urine5-9NormalNone SeenLakewood Ranch Medical Center Physician GroupComment on above:Order Comment: PER YOUTH OFFICER AGUILA PT ADMITTED FROM ER. USE ER BLOOD-[id number] By: #### TSH3 wRFLX, LIPID, [id number] #### [place] [address] USAHyaline Casts,Mchny7-7Vyrxpe6-4Lez [facility] Physician GroupComment on above:Order Comment: PER YOUTH OFFICER AGUILA PT ADMITTED FROM ER. USE ER BLOOD-[id number] By: #### TSH3 wRFLX, LIPID, [id number] #### [place] [address] USAMucus,UrineRareNormalLakewood Ranch Medical Center Physician GroupComment on above:Order Comment: PER YOUTH OFFICER AGUILA PT ADMITTED FROM ER. USE ER BLOOD-[id number] Comment: PERFORMED BY: [place] [address] PATHOLOGIST CONTACT LENS CUTTER HILDA LEE M.D.Performed By: #### TSH3 wRFLX, LIPID, [id number] #### [place] [address] USANitrite,UrineNegativeNormalNegativeThe [facility] Physician GroupComment on above:Order Comment: PER YOUTH OFFICER AGUILA PT ADMITTED FROM ER. USE ER BLOOD-[id number] By: #### TSH3 wRFLX, LIPID, [id number] #### [place] [address] USAOccult Blood,Urine1+NormalNegativeThe [facility] Physician GroupComment on above:Order Comment: PER YOUTH OFFICER AGUILA PT ADMITTED FROM ER. USE ER BLOOD-[id number] Comment: PERFORMED BY: [place] [address] PATHOLOGIST CONTACT LENS CUTTER HILDA LEE M.D.Performed By: #### TSH3 wRFLX, LIPID, [id number] #### [place] [address] USARBC,Lblvd5-8Kshprd2-8Ldd [facility] Physician GroupComment on above:Order Comment: PER YOUTH OFFICER AGUILA PT ADMITTED FROM ER. USE ER BLOOD-[id number] By: #### TSH3 wRFLX, LIPID, [id number] #### [place] [address] USASpecificy [place],Urine1.079Rpvrpe5.001-1.030The [facility] Physician GroupComment on above:Order Comment: PER YOUTH OFFICER AGUILA PT ADMITTED FROM ER. USE ER BLOOD-[id number] By: #### TSH3 wRFLX, LIPID, [id number] #### [place] [address] USASquamous Epithelial Cell,Qbcap3-8Dbiaqo8-3Akr [facility] Physician GroupComment on above:Order Comment: PER YOUTH OFFICER AGUILA PT ADMITTED FROM ER. USE ER BLOOD-[id number] By: #### TSH3 wRFLX, LIPID, [id number] #### [place] [address] USAUrobilinogen,Urine2 mg/dLNormalNormalThe [facility] Physician GroupComment on above:Order Comment: PER YOUTH OFFICER AGUILA PT ADMITTED FROM ER. USE ER BLOOD-[id number] By: #### TSH3 wRFLX, LIPID, [id number] #### [place] [address] USAWBC,Iqile1-1Kdusmx7-9Xed [facility] Physician GroupComment on above:Order Comment: PER YOUTH OFFICER AGUILA PT ADMITTED FROM ER. USE ER BLOOD-[id number] By: #### TSH3 wRFLX, LIPID, [id number] #### [place] [address] USADrug Screen,Urineon 80-75-4111Bsbcumuddfz Screen,Urine NegativeNormalNegativeLakewood Ranch Medical Center Physician [facility] CenterComment on above:Performed By: #### GLULS #### Point of Care testing ,Barbiturate Screen,UrineNegativeNormalNegativeLakewood Ranch Medical Center Physician Group Comment on above:Performed By: #### GLULS #### Point of Care testing ,Benzodiazepines Screen,UrineNegativeNormalNegativeLakewood Ranch Medical Center Physician Group Comment on above:Performed By: #### GLULS #### Point of Care testing ,Cannabinoid Screen,UrineNegativeNormalNegativeLakewood Ranch Medical Center Physician Group Comment on above:Result Comment: These are unconfirmed results and should not be used for legal purposes. Drug Cut-Off Concentration: AMPH 1000 ng/mL FRANK 200 ng/mL SAFIA 200 ng/mL COCM 300 ng/mL OP 300 ng/mL PCP 25 ng/mL THC 20 ng/mL PERFORMED BY: [place] [address] PATHOLOGIST CONTACT LENS CUTTER HILDA LEE M.D.Performed By: #### GLULS #### Point of Care testing ,Cocaine Screen,UrineNegativeNormalNegativeLakewood Ranch Medical Center Physician [facility] CenterComment on above:Performed By: #### GLULS #### Point of Care testing ,Opiate Screen,UrineNegativeNormalNegativeLakewood Ranch Medical Center Physician GroupComment on above:Performed By: #### GLULS #### Point of Care testing ,Phencyclidine Screen,UrineNegativeNormalNegativeLakewood Ranch Medical Center Physician Group Comment on above:Performed By: #### GLULS #### Point of Care testing ,Eosinophils [#/volume] in Blood by Automated countOrdered By: Carmine Gutierrez on 84-66-0100Obppzjaasex (Bld) [#/Vol]0.4 10*3/uLNormal0.0-0.45[facility] GeneralComment on above:Performed By: #### GLULS #### Point of Care testing ,Eosinophils/100 leukocytes in Blood by Automated countOrdered By: Carmine Gutierrez on 39-82-9072Ufwgzfpogzd/100 WBC (Bld)7.8 %Normal.[facility] GeneralComment on above:Performed By: #### GLULS #### Point of Care testing ,Epithelial cells.squamous [#/area] in Urine sediment by Automated countOrdered By: Carmine Gutierrez on 05-39-7968Iqxzyonhih cells.squamous Auto (Urine sed) [#/Area]1-2 [HPF]0-2FMorrow County HospitalErythrocyte distribution width [Ratio] by Automated countOrdered By: Carmine Gutierrez on 05-16-2025 Erythrocyte distribution width (RBC) [Ratio]18.0 %High12.0-14.8[facility] GeneralComment on above:Performed By: #### GLULS #### Point of Care testing ,Erythrocytes [#/area] in Urine sediment by Automated countOrdered By: Carmine Gutierrez on 12-80-8739KDO Auto (Urine sed) [#/Area]5-9 [HPF]High0-4FMorrow County HospitalErythrocytes [#/volume] in Blood by Automated count Ordered By: Carmine Gutierrez on 62-72-3574GXJ (Bld) [#/Vol]3.66 10*6/uLLow3.90-5.60 [facility] GeneralComment on above:Performed By: #### GLULS #### Point of Care testing ,Ethanol [Mass/volume] in Serum or PlasmaOrdered By: Carmine Gutierrez on 05-16-2025 Ethanol [Mass/Vol]mg/dLNormalCleveland Clinic Akron GeneralComment on above: Performed By: #### GLULS #### Point of Care testing ,Ethyl Alcohol Profileon 04-25-6234Ywieqjl EthanolNot performedNoNovant Health Forsyth Medical Center Physician GroupComment on above:Result Comment: PERFORMED BY: [facility] [address] PATHOLOGIST CONTACT LENS CUTTER HILDA LEE M.D.Performed By: #### GLULS #### Point of Care testing ,Glomerular filtration rate [Volume Rate/Area] in Serum, Plasma or Blood by CreatinineOrdered By: Carmine Gutierrez on 15-66-1596Fbhaqurhbj filtration rate [Volume Rate/Area] in Serum, Plasma or Blood by Mbkkxssasb19.534 mL/MinCleveland Clinic Akron GeneralGlucose Poct Glucometerson 17-68-9804Weywnlf [Mass/Vol] 219 mg/dLSt. Joseph's Hospital Physician GroupComment on above:Result Comment: Random Glucose Reference Range is dependent on time and content of last meal. Glucose of more than 200 mg/dL in a nonstressed, ambulatory subject supports the diagnosis of Diabetes Mellitus. PERFORMED BY: [address] [place] [address] PATHOLOGIST CONTACT LENS CUTTER HILDA LEE M.D.Performed By: #### GLULS #### Point of Care testing ,Glucose [Mass/volume] in Serum or PlasmaOrdered By: Carmine Gutierrez on 05-16-2025 Glucose [Mass/Vol]161 mg/cULwwe33-606JgyxzifkmCleveland Clinic Akron GeneralComment on above:ADA recommended reference rangeRandom Glucose Reference [...] by Test stripOrdered By: Carmine Gutierrez on 04-79-7092Qteeaue Test strip (U) [Mass/Vol]200 mg/dLAvita Health System Galion HospitalGranular casts [#/area] in Urine by Computer assisted method Ordered By: Carmine Gutierrez on 35-82-8578Alnxtmgd casts Computer assisted (U) [#/Area]5-9 [LPF][facility] Memorial HospitalHematocrit [Volume Fraction] of Blood by Automated countOrdered By: Carmine Gutierrez on 12-36-5158Wewnkvrdnp (Bld) [Volume fraction]30.8 %Low38.8-50.0[facility] GeneralComment on above:Performed By: #### GLULS #### Point of Care testing ,Hemoglobin Test strip Ql (U)Ordered By: Carmine Gutierrez on 32-31-1482Evwyktufir Ql (U)1+HighNegativeCleveland Clinic Akron GeneralHemoglobin [Mass/volume] in BloodOrdered By: Carmine Gutierrez on 50-22-9110Djoingxhvv (Bld) [Mass/Vol]9.9 g/dL Low13.0-17.0[facility] GeneralComment on above:Performed By: #### GLULS #### Point of Care testing ,Hyaline casts [#/area] in Urine sediment by Automated countOrdered By: Carmine Gutierrez on 52-77-9151Fbwfipo casts Auto (Urine sed) [#/Area]0-8 [LPF]0-8[facility] GeneralKetones [Presence] in Urine by Test stripOrdered By: Carmine Gutierrez on 31-06-9989Qpwvghd Ql (U)NegativeNormalNegLima City HospitalComment on above:Order Comment: PER YOUTH OFFICER AGUILA PT ADMITTED FROM ER. USE ER BLOOD-[id number] By: #### TSH3 wRFLX, LIPID, [id number] #### [facility] [address] [place] [id number] USALeukocyte esterase [Presence] in Urine by Test strip Ordered By: Carmine Gutierrez on 71-90-6962Ulorvhkbk esterase Test strip Ql (U) NegativeNormalNegLima City HospitalComment on above:Order Comment: PER YOUTH OFFICER AGUILA PT ADMITTED FROM ER. USE ER BLOOD-[id number] By: #### TSH3 wRFLX, LIPID, [id number] #### [facility] [address] [place] [id number] USALeukocytes [#/area] in Urine sediment by Automated count Ordered By: Carmine Gutierrez on 48-68-6881TAZ Auto (Urine sed) [#/Area]1-2 [HPF]0-4 [facility] GeneralLeukocytes [#/volume] corrected for nucleated erythrocytes in Blood by Automated counOrdered By: Carmine Gutierrez on 82-01-2152SST corrected for nucl RBC Auto (Bld) [#/Vol]5.7 10*3/uL4.1-10.5FMorrow County HospitalLeukocytes [#/volume] in Blood by Automated countOrdered By: Carmine Gutierrez on 24-06-5443OKO (Bld) [#/Vol]5.7 10*3/uLNormal4.1-10.5FMorrow County HospitalComment on above:Performed By: #### GLULS #### Point of Care testing ,Lipid Panelon 74-41-8726Fpfrjlngufm [Mass/Vol]158 mg/aNYzthqg974-843Mfx [facility] Physician GroupComment on above:Order Comment: PER YOUTH OFFICER AGUILA PT ADMITTED FROM ER. USE ER BLOOD-[id number] Comment: Chol less than 200 mg/dl low risk Chol 201-239 mg/dl borderline risk Chol 240 mg/dl and greater high riskPerformed By: #### TSH3 wRFLX, LIPID, [id number] #### [facility] [address] [place] [address] USACholesterol in HDL [Mass/Vol]32 mg/iGTcrrti30-64Rvr [facility] Physician GroupComment on above:Order Comment: PER YOUTH OFFICER AGUILA PT ADMITTED FROM ER. USE ER BLOOD-[id number] Comment: HDL CHOL ATP-III CLASSIFICATION Cardiovascular Risk HDL > or equal to 60 mg/dL LOW HDL < 40 mg/dL HIGHPerformed By: #### TSH3 wRFLX, LIPID, [id number] #### [facility] [address] [place] [address] USACholesterol.total/Cholesterol in HDL [Mass ratio]4.9 {ratio}Normal<5.0The [facility] Physician GroupComment on above:Order Comment: PER YOUTH OFFICER AGUILA PT ADMITTED FROM ER. USE ER BLOOD-[id number] By: #### TSH3 wRFLX, LIPID, [id number] #### [facility] [address] [place] [address] USALDL Cholesterol,Rgyeprnpie19 mg/dLNormal0-100The [facility] Physician [facility] Medical CenterComment on above:Order Comment: PER YOUTH OFFICER AGUILA PT ADMITTED FROM ER. USE ER BLOOD-[id number] Comment: LDL ATP III CLASSIFICATION LDL less than 100 mg/dL Optimal LDL 100-129 mg/dL Near or above optimal LDL 130-159 mg/dL Borderline high LDL 160-189 mg/dL High LDL greater than 189 mg/dL Very highPerformed By: #### TSH3 wRFLX, LIPID, [id number] #### [facility] [address] [place] [address] USATriglyceride w/Clitet057 mg/dLHigh0-149The [facility] Physician GroupComment on above:Order Comment: PER YOUTH OFFICER AGUILA PT ADMITTED FROM ER. USE ER BLOOD-[id number] Comment: TRIG ATP III CLASSIFICATION TRIG less than 150 mg/dL Normal TRIG 150-199 mg/dL Borderline high TRIG 200-500 mg/dL High TRIG greater than 500 mg/dL Very high Standard traceable to the Center for Disease Conrtrol and Prevention (CDC) test method.Performed By: #### TSH3 wRFLX, LIPID, [id number] #### [place] [id number] USAVLDL QCRULOKNPYF28 mg/dLNormalThe [facility] Physician [facility] Medical CenterComment on above:Order Comment: PER YOUTH OFFICER AGUILA PT ADMITTED FROM ER. USE ER BLOOD-[id number] By: #### TSH3 wRFLX, LIPID, [id number] #### [place] [id number] USALymphocytes [#/volume] in Blood by Automated countOrdered By: Carmine Gutierrez on 19-51-6774Rinbzehsvcf (Bld) [#/Vol]1.5 10*3/uLNormal1.00-4.8 [facility] GeneralComment on above:Performed By: #### GLULS #### Point of Care testing ,Lymphocytes/100 leukocytes in Blood by Automated countOrdered By: Carmine Gutierrez on 32-25-8215Gxxcnrxjoue/100 WBC (Bld)26.7 %Normal.[facility] Medical CenterComment on above:Performed By: #### GLULS #### Point of Care testing ,MCH [Entitic mass] by Automated countOrdered By: Carmine Gutierrez on 60-66-3749KOL (RBC) [Entitic mass]27.2 pgLow27.5-35.2FMorrow County HospitalComment on above:Performed By: #### GLULS #### Point of Care testing ,MCHC Auto (RBC) [Mass/Vol]Ordered By: Carmine Gutierrez on 95-74-8415BXTV (RBC) [Mass/Vol]32.3 g/dLLow32.5-35.6FMorrow County HospitalMCV [Entitic volume] by Automated countOrdered By: Carmine Gutierrez on 64-48-6598NWQ (RBC) [Entitic vol]84.1 oPPyqbvb88.5-101[facility] GeneralComment on above:Performed By: #### GLULS #### Point of Care testing ,Monocyte distribution width [Entitic volume] in Blood by AutomatedOrdered By: Carmine Gutierrez on 28-18-7900Ugdwxbgo distribution width Auto (Bld) [Entitic vol] 20.40 %High0.00-20.00[facility] GeneralComment on above:For adults in ED, MDW > 20.0 may be associated with a higher risk of sepsis during the first 12 hrs of hospital admissionMonocytes [#/volume] in Blood by Automated countOrdered By: Carimne Gutierrez on 49-54-9285Mbvuuqugv (Bld) [#/Vol]0.6 10*3/uL Normal0.0-0.8[facility] GeneralComment on above:Performed By: #### GLULS #### Point of Care testing ,Monocytes/100 leukocytes in Blood by Automated countOrdered By: Carmine Gutierrez on 73-91-1527Weooeotur/100 WBC (Bld)10.9 %Normal.[facility] Comment on above:Performed By: #### GLULS #### Point of Care testing ,Mucus [Presence] in Urine by AutomatedOrdered By: Carmine Gutierrez on 05-16-2025 Mucus Auto Ql (U)Rare [LPF][facility] Medical CenterNeutrophils [#/volume] in Blood by Automated countOrdered By: Carmine Gutierrez on 05-16-2025 Neutrophils (Bld) [#/Vol]3.1 10*3/uLNormal1.8-7.7FMorrow County HospitalComment on above:Performed By: #### GLULS #### Point of Care testing ,Neutrophils/100 leukocytes in Blood by Automated countOrdered By: Carmine Gutierrez on 05-18-6890Rrzkmkppajt/100 WBC (Bld)53.2 %Normal.[facility] GeneralComment on above:Performed By: #### GLULS #### Point of Care testing ,Nitrite Test strip Ql (U)Ordered By: Carmine Gutierrez on 45-26-4037Uleqefm Ql (U) NegativeNegLima City HospitalNo Panel InformationOrdered By: Carmine Gutierrez on 83-68-9776Rmfedjpo Creatinine Clearance (Chem69.78[facility] GeneralNucleated erythrocytes [Presence] in Blood by Automated countOrdered By: Carmine Gutierrez on 46-97-3963Imkjsuxqa RBC Auto Ql (Bld)0.0 /100{WBC}0-0.5FMorrow County HospitalOpiates [Presence] in Urine by Screen methodOrdered By: Carmine Gutierrez on 04-36-9794Uddliat Screen Ql (U)Negative NegativeCleveland Clinic Akron GeneralPhencyclidine Screen Ql (U)Ordered By: Carmine Gutierrez on 97-14-8121Bnwgsshbdwhyn Ql (U)NegativeNegLima City HospitalPlatelet mean volume [Entitic volume] in Blood by Automated count Ordered By: Carmine Gutierrez on 21-31-6851Cpldebfr mean volume (Bld) [Entitic vol] 7.4 fLNormal6.6-10.1FMorrow County HospitalComment on above:Performed By: #### GLULS #### Point of Care testing ,Platelets [#/volume] in Blood by Automated countOrdered By: Carmine Gutierrez on 61-75-4530Uzsczjgvs (Bld) [#/Vol]230 10*3/bEEudiem029-926DbvbrywjqCleveland Clinic Akron GeneralComment on above:Performed By: #### GLULS #### Point of Care testing ,Potassium [Moles/volume] in Serum or PlasmaOrdered By: Carmine Gutierrez on 86-97-7314Iggkbyyco [Moles/Vol]3.5 mmol/LNormal3.5-5.1FMorrow County HospitalComment on above:Performed By: #### GLULS #### Point of Care testing ,Protein [Mass/volume] in Serum or PlasmaOrdered By: Carmine Gutierrez on 05-16-2025 Protein [Mass/Vol]7.5 g/dLNormal6.4-8.9[facility] GeneralComment on above:Performed By: #### GLULS #### Point of Care testing ,Protein [Mass/volume] in Urine by Test stripOrdered By: Carmine Gutierrez on 85-74-5550Yseqaew (U) [Mass/Vol]30 mg/dLNormalNegativeCleveland Clinic Akron GeneralComment on above:Order Comment: PER YOUTH OFFICER AGUILA PT ADMITTED FROM ER. USE ER BLOOD-[id number] By: #### TSH3 wRFLX, LIPID, [id number] #### [place] [address] USASerum globulin measurement by calculation (mass/volume) Ordered By: Carmine Gutierrez on 96-15-9995Oqdunjku (S) [Mass/Vol]4.2 g/dLNoal [facility] GeneralComment on above:Performed By: #### GLULS #### Point of Care testing ,Serum or plasma albumin/globulin mass ratioOrdered By: Carmine Gutierrez on 16-23-3491Vbtgbmk/Globulin [Mass ratio]0.8 {ratio}NormalCleveland Clinic Akron GeneralComment on above:Performed By: #### GLULS #### Point of Care testing ,Serum or plasma anion gap determinationOrdered By: Carmine Gutierrez on 05-16-2025 Anion gap [Moles/Vol]10.1 mmol/LNormal6.0-15.0[facility] Comment on above:Performed By: #### GLULS #### Point of Care testing ,Serum or plasma ethanol measurement (mass/volume)Ordered By: Carmine Gutierrez on 33-43-6787Jmotdqq [Mass/Vol]TNElyria Memorial HospitalComment on above:Test not performedSodium [Moles/volume] in Serum or PlasmaOrdered By: Carmine Gutierrez on 20-56-9725Txstmr [Moles/Vol]137 mmol/HNzuhxp976-850RmnddtveqCleveland Clinic Akron GeneralComment on above:Performed By: #### GLULS #### Point of Care testing ,Specific gravity Test strip (U) [Rel density]Ordered By: Carmine Gutierrez on 22-75-7270Ajifykwx gravity (U) [Rel density]1.0221.001-1.030[facility] GeneralThyroid Stim Hormone w/Rflxon 15-72-1755Uewzinf Stim Hormone w/Rflx5.00 u[iU]/mLNormal0.45-5.33The [facility] Physician GroupComment on above: Order Comment: PER YOUTH OFFICER AGUILA PT ADMITTED FROM ER. USE ER BLOOD-[id number] By: #### TSH3 wRFLX, LIPID, [id number] #### [place] [address] USAThyrotropin [Units/volume] in Serum or PlasmaOrdered By: Carmine Gutierrez on 32-55-2831RFX Qn4.87 m[IU]/LNormal0.45-5.33[facility] GeneralComment on above:Result Comment: PERFORMED BY: [place] [address] PATHOLOGIST CONTACT LENS CUTTER HILDA LEE M.D.Performed By: #### GLULS #### Point of Care testing ,Urea nitrogen [Mass/volume] in Serum or PlasmaOrdered By: Carmine Gutierrez on 32-90-8219Kzoa nitrogen [Mass/Vol]18 mg/dLNormal7-25[facility] GeneralComment on above:Performed By: #### GLULS #### Point of Care testing ,Urobilinogen Test strip (U) [Mass/Vol]Ordered By: Carmine Gutierrez on 05-16-2025 Urobilinogen (U) [Mass/Vol]2 mg/dLHighNoUniversity Hospitals Portage Medical Center Vitamin D 25 Hydroxy Totalon 49-41-0281Pcivrrf D 25 Hydroxy Total8.8 ng/mLLow 30-100The [facility] Physician GroupComment on above:Order Comment: PER YOUTH OFFICER AGUILA PT ADMITTED FROM ER. USE ER BLOOD-[id number] Comment: VITAMIN D STATUS 25(OH)VITAMIN D RANGE (ng/mL) Deficient <20 Insufficient 20 to <30 Sufficient 30 to 100 Reference: Boaz MF,[place], [place] GASTELUM, et al. Evaluation,treatment, and prevention of vitamin D deficiency; an Endocrine Society clinical practice guideline. JCEM. 2010; 96(7):1911-30. PERFORMED BY: [place] [address] PATHOLOGIST CONTACT LENS CUTTER HILDA LEE M.D.Performed By: #### TSH3 wRFLX, LIPID, [id number] #### [facility] [address] [place] [address] USApH of Urine by Test stripOrdered By: Carmine Gutierrez on 09-53-0353uC (U)5.5 [pH]Normal5.0-9.0[facility] GeneralComment on above:Order Comment: PER YOUTH OFFICER AGUILA PT ADMITTED FROM ER. USE ER BLOOD-[id number] By: #### TSH3 wRFLX, LIPID, [id number] #### [facility] [address] [place] [address] USAAbstracton [id number] Evelin Patterson 1955 M Date Provider Department Center 05/13/2025 [facility] Family History Problem Relation Age of Onset No Known Problems Mother No Known Problems Father Family Status - Relation Status Age at Mother FatherNormalUniversity of Texas Health Southwest Fort WorthOptical coherence tomography study reporton 29-30-4412UTHO HealthcareNOCA HealthcareIntravitreal Injection, Pharmacologic Agent - OD - Right Eyeon 57-30-3942KGFJ HealthcareLeft eye Ophthalmologic treatmenton 02-09-4595QZLC HealthcareNo Panel Informationon 99-88-1660Psaamkajp Study observation (narrative)NOMS HealthcareUrine Cultureon 28-84-1855Urqnxylh identified Cx Nom (U)20,000 colonies/ml mixed bacterial skin contaminants 2 Days PERFORMED BY: [place] [address] PATHOLOGIST CONTACT LENS CUTTER HILDA LEE M.D.[facility] Physician GroupComment on above: Performed By: #### CUU #### [facility] [address] [place] [address] USAUrine cultureOrdered By: Arline Lazar on 03-25-2025 Bacteria identified Cx Nom (U)2 DaysCleveland Clinic Akron General Intravitreal Injection, Pharmacologic Agent - OD - Right Eyeon 72-60-4858BMXJ HealthcareRadiology Study observation (narrative)[facility] HealthcareOptical coherence tomography study reporton 51-36-1176IUJGLafayette Regional Health Center Healthcare Radiology Study observation (narrative)NOMS HealthcareCT lumbar spine w conon 83-99-8659IV lumbar spine w [facility] [place] [address] [place] [address] Interventional Radiology Rpt Signed Patient: Evelin Patterson MR#: [id number] : 1955 Acct:[id number] Age/Sex: 69 / M ADM Date: 02/25/25 Loc: XD Room: Type: [facility] Attending Dr: Margot Singh MD Copies to: Margot Titus MD Ordering Provider: Margot Ttius MD Date of Service: 02/25/25 IR/IR myelogram spine lumbosacral: S22.07OD, M51.372, M43.15 ([id number]) CT/CT lumbar spine w con: S22.07OD, M51.372, [...] Tinajero M.D. 02/25/2025 1:51 PM Dictation Location: [place] [address] Transcribed By: [facility] 02/25/25 5421 Dictated By: Michael Tinajero DO 02/25/25 1335 Signed By: 02/25/25 135St[facility] Physician GroupINR in Platelet poor plasma by Coagulation assayOrdered By: Arline Lazar on 56-65-5107CYM Coag (PPP) [Relative time]1.0 {INR}NormalCleveland Clinic Akron GeneralComment on above:INR Therapeutic Range A) Pre- and [...] heart valves: 3 - 4.5 PERFORMED BY: [place] [address] PATHOLOGIST CONTACT LENS CUTTER HILDA LEE M.D.Performed By: #### PT, PLT #### [place] [address] USAInterventional radiology reportOrdered By: Michael Tinajero on 30-07-0522Tpxhk reportCLEVELAND CLINIC [facility] [place] [address] [place] [address] Interventional Radiology Rpt Signed Patient: Evelin Patterson MR#: [id number] : 1955 Acct:[id number] Age/Sex: 69 / M ADM Date: 5 Loc: XD Room: Type: [facility] Attending Dr: Margot Singh MD Copies to: Margot Titus MD~ Ordering Provider: Margot Titus MD Date of Service: 02/25/25 IR/IR myelogram spine lumbosacral: S22.07OD, M51.372,M43.15 ([id number]) CT/CT lumbar spine w con: S22.07OD, M51.372, [...] 2 to 3 years. Weakness. History of G43saxsbrqytsp fracture. FINDINGS: Lumbar lordosis is maintained. No [...] Tinajero M.D. 02/25/2025 1:51 PM Dictation Location: [place] [address] Transcribed By: [facility] 02/25/25 1351 Dictated By: Michael Tinajero DO 02/25/25 1335 Signed By: 02/25/25 1351 [facility] GeneralPlatelets [#/volume] in Blood by Automated countOrdered By: Arline Lazar on 59-41-9854Ntpcdtwwf (Bld) [#/Vol]228 10*3/uL Shepwc332-938ViivwuirnCleveland Clinic Akron GeneralComment on above:Result Comment: PERFORMED BY: [place] [address] PATHOLOGIST CONTACT LENS CUTTER HILDA LEE M.D.Performed By: #### PT, PLT #### [facility] [address] [place], [place] [address] USAProthrombin time (PT)Ordered By: Arline Lazar on 63-68-4095HH Coag (PPP) [Time]11.2 sNormal9.0-12.9C[facility] Clinic [facility]ron GeneralComment on above:A hematocrit value greater than 55% may lead to inaccurate results in coagulation testing. Patientshaving hematocrit values >55% require a special collection tube for coagulation studies. Please contact the laboratory at [phone] for redraw instructions.Result Comment: A hematocrit value greater than 55% may lead to inaccurate results in coagulation testing. Patients having hematocrit values >55% require a special collection tube for coagulation studies. Please contact the laboratory at [phone] for redraw instructions.Performed By: #### PT, PLT #### [facility] [address] [place] [address] USAOrders Onlyon 90-44-2077Itrckl [id number] Evelin Patterson 1955 M Date Provider Department [place] 12/29/2024 [id number], HISTORICAL CARD Nery Castro Family History Problem Relation Age of Onset No Known Problems Mother No Known Problems Father Family Status - Relation Status Age at Mother FatherNormalUniversity of Texas Health Southwest [facility] Worth36on 54-11-966648Yq. [place] made aware yesterday that patient had lipid panel in October 2024. He said patient does not need repeat labs at this time. Patient made aware.Normal [place] [address]on 38-83-555583X/p heart cath on 11/18/2024, Dr. Hays would like lipid/LFT's on patient prior to his apt in January 2025. LM for patient to return my call. Orders put in and faxed to [facility].NormalZanesville City Hospital 80-09-2322AOAG Attestation signed by Barb Hays MD at 11/18/2024 12:05 PM Barb Hays MD, MPH, [facility], [facility], [facility] Interventional Cardiology Pager Email: [email or web address] Patient: Evelin Adrian Yesenia Procedure Information Date/Time: 11/18/24 1145 Procedure: Coronary angiography - VIANCAJ Location: [facility] COMP FIELD CASE MANAGER 2 BIPLANE / [facility] VASCULAR [facility] (Cath) Providers: Barb Hays MD [...] products. Plan discussed with attending. Additional Equipment RequestsNormalUniversAvita Health System [facility] Hospital 85-94-5460SQ Attestation with edits by Barb Hays MD at 11/18/2024 12:11 PM Barb aHys MD, MPH, [facility], [facility], [facility] Interventional Cardiology Pager Email: [email or web address] H&P reviewed. The patient was examined and there are no changes to the H&P. Proceed with RHC and CORS for dyspnea, unstable angina. Saul Diego MD PGY-5 Transit Clerk [facility] Pager # [phone] Medical Cleveland Clinic Rehabilitation Hospital, Edwin ShawNURSNOTEon 35-10-7467CSNEYNBCUK educated pt on d/c instructions. This included: [...] wheeled off of unit with all of belongings.NormalUnMercy Health St. Anne HospitalOrders Onlyon 82-46-7053Wnonrn [id number] Evelin Patterson 1955 M Date Provider Department Center 11/10/2024 MARGARITA TURNER [facility] VAS LAB AK HeartVAS Family History Problem Relation Age of Onset No Known Problems Mother No Known Problems Father Family Status - Relation Status Age at Mother FatherNormalUniSelect Medical [facility], [facility] Shaw36on 95-10-831838Fdlv message script sent into [employer] in [facility]36 Patient states since he started Carvedilol. He has been taking for 2 to 3 days, patient states he's very fatigued, having hallucinations. Would you like to make a change, or recommendations. Please advise.Lima Memorial HospitalHPon 57-17-8466WAVQPLLKDU CLINIC Cardiology Clinic Note Chief Complaint: New patient here to re-establish care. He had heart cath back in 2009 at [facility]. He was diagnosed with afib [...] can be completed. Barb Hays MD, MPH, [facility], [facility], [facility] Interventional Cardiology Pager Email: [email or web address], N[facility] Orthopedic HospitalalUniSelect Medical [facility] Clinic Rehabilitation Hospital, Edwin ShawOffice Visiton 17-91-2696Ddyden-up [id number] Evelin Patterson 1955 M Date Provider Department Center 10/28/2024 271-BARB HAYS [facility] Family History Problem Relation Age of Onset No Known Problems Mother No Known Problems Father Family Status - Relation Status Age at Mother Father Level of Service:[address] [place] OFFICE/OUTPATIENT [facility] 60 MINUTESPremier Health Upper Valley Medical CenterOrders Onlyon 88-09-6329Hcnyec [id number] Patterson,Evelin Adrian 1955 M Date Provider Department Center 10/28/2024 JADEN HONG [facility] Family History Problem Relation Age of Onset No Known Problems Mother No Known Problems Father Family Status - Relation Status Age at Mother FatherNoalUWooster Community HospitalProvider Letteron 06-14-2024 Provider LetterProvider Letter June 14, 20[address] [place] [phone] : 1955 Dear Evelin , We have been trying to reach you with no success. It is important that you return our call upon receiving this letter. Also, at the time of your call, please provide us with your current information. Thank you for your prompt attention to this matter. Sincerely, Dr. Javid Haynes MD General SurgeryProtestant Deaconess HospitalCBC AUTO DIFFon 03-68-8920UMRD # 0.1 103/ulNormal0.0-0.1The [facility] Va Medical CenterComment on above:Performed By: #### TSH, BMP #### [facility] [address] [place] [address] [address] Ladan DiehlBasophils/100 WBC (Bld)1.2 %Normal0.2-2.0The [facility] Comment on above:Performed By: #### TSH, BMP #### [facility] [address] [place] [address] Dr. Ladan Schmidt #0.4 103/ulNormal0.0-0.7The [facility] Medical CenterComment on above: Performed By: #### TSH, BMP #### [facility] [address] [place] [address] Dr. Ladan Josephosinophils/100 WBC (Bld)4.9 %Normal0.9-7.0The [facility] Comment on above:Performed By: #### TSH, BMP #### [facility] [address] [place] [address] Dr. Ladan Ayersthrocyte distribution width (RBC) [Ratio]14.8 %Rgxpog24.0-15.0 The [facility] Medical CenterComment on above:Performed By: #### TSH, BMP #### [facility] [address] [place] [address] Dr. Ladan DiehlHematocrit (Bld) [Volume fraction]36.7 %Critically low42.0-54.0 The [facility] Medical CenterComment on above:Performed By: #### TSH, BMP #### [facility] [address] [place] [address] Dr. Ladan DiehlHemoglobin (Bld) [Mass/Vol]12.0 g/dLCritically low14.0-18.0The [facility] CenterComment on above:Performed By: #### TSH, BMP #### [facility] [address] [place] [address] Dr. Ladan Partida #0.01 10e3/ulNormal0.00-0.03The [facility] Medical CenterComment on above:Performed By: #### TSH, BMP #### [facility] [address] [place] [address] Dr. Ladan Partida %0.1 %Normal0.0-0.5The [facility] Medical CenterComment on above: Performed By: #### TSH, BMP #### [facility] [address] [place] [address] Dr. Ladan Moser #2.0 103/ulNormal1.2-3.8The [facility] CenterComment on above:Performed By: #### TSH, BMP #### [facility] [address] [place] [address] Dr. Ladan Rogershocytes/100 WBC (Bld)27.1 %Iujwyy84.5-60.0The [facility] Medical CenterComment on above:Performed By: #### TSH, BMP #### [facility] [address] [place] [address] Dr. Ladan Vyas DIFF REQNONormalThe [facility] Medical CenterComment on above: Performed By: #### TSH, BMP #### [facility] [address] [place] [address] Dr. Ladan Gibbs (RBC) [Entitic mass]29.6 scUaisko55.9-34.0The [facility] CenterComment on above:Performed By: #### TSH, BMP #### [facility] [address] [place] [address] Dr. Ladan Gibbs (RBC) [Mass/Vol]32.7 g/zUMqhizc98.9-35.2The [facility] CenterComment on above:Performed By: #### TSH, BMP #### [facility] [address] [place] [address] Dr. Ladan Gibbs (RBC) [Entitic vol]90.6 cNBxsbck65.0-94.0The [facility] CenterComment on above:Performed By: #### TSH, BMP #### [facility] [address] [place] [address] Dr. Ladan Barone #0.8 103/ulNormal0.3-0.8The [facility] Medical CenterComment on above:Performed By: #### TSH, BMP #### [facility] [address] [place] [address] Dr. Ladan Stanleyocytes/100 WBC (Bld)10.4 %Normal1.7-12.0The [facility] Comment on above:Performed By: #### TSH, BMP #### [facility] [address] [place] [address] [address] Ladan Shrestha #4.2 103/ulNormal1.4-6.5The Park[facility] Health Montpelier Hospitalment on above:Performed By: #### TSH, BMP #### [facility] [address] [place] [address] Dr. Ladan Humphreyutrophils/100 WBC (Bld)56.3 %Vbhpwi23.0-75.0The [facility] CenterComment on above:Performed By: #### TSH, BMP #### [facility] [address] [place] [address] Dr. Ladan Tejaadlet mean volume (Bld) [Entitic vol]9.9 fLNormal9.5-13.5The [facility] Medical CenterComment on above:Performed By: #### TSH, BMP #### [facility] [address] [place] [address] Dr. Ladan DiehlPLT227 103/xgFmckjv690-170Gge [facility] CenterComment on above: Performed By: #### TSH, BMP #### [facility] [address] [place] [address] Dr. Ladan DiehlRBC4.05 106/ulCritically low4.70-6.10The [facility] on above:Performed By: #### TSH, BMP #### [facility] [address] [place] [address] Dr. Ladan DiehlWBC7.4 103/ulNormal4.0-11.0The [facility] on above: Performed By: #### TSH, BMP #### [facility] [address] [place] [address] Dr. Ladan Correa T3on 31-87-1316SXWP T32.07 pg/mlLCritically low2.18-3.98The [facility] CenterComment on above:Performed By: #### TSH, BMP #### [facility] [address] [place] [address] Dr. Ladan Correa T4on 15-59-9148Ivlz T4 [Mass/Vol]1.14 ng/dLNormal0.76-1.46 [facility] HospitalComascension mac[facility] on above:Performed By: #### TSH, BMP #### [facility] [address] [place] [address] [address] Ladan DiehlGLYCOHEMOGLOBIN A1Con 05-12-8264NSB RECOMMENDATIONSEE BELOWNormal [facility] HospitalComment on above:Result Comment: ADA RECOMMENDED LIMIT 4.0 - 6.0 ADA THERAPEUTIC TARGET < 7.0 ACTION SUGGESTED > 7.0Performed By: #### TSH, BMP #### [facility] [address] [place] [address] Dr. Ladan DiehlGlucose [Mass/Vol]134 mg/dLNoAdams County Regional Medical CenterComment on above:Performed By: #### TSH, BMP #### [facility] [address] [place] [address] Dr. Ladan DiehlHbA1c (Bld) [Mass fraction]6.3 %Critically high4.5-6.2[facility] HospitalComment on above:Performed By: #### TSH, BMP #### [facility] [address] [place] [address] Dr. Ladan DiehlLIPID PROFILEon 54-94-1146RQIN-HDL RATIO NORMSEE [facility] Barnes[facility] HospitalComment on above:Result Comment: 3.3 - 4.4 LOW RISK 4.4 - 7.1 AVERAGE RISK 7.1 - 11.0 MODERATE RISK >11.0 HIGH RISKPerformed By: #### TSH, BMP #### [facility] [address] [place] [address] Dr. Ladan DiehlCholesterol [Mass/Vol]118 mg/dLNormal<=200The [facility] Comment on above:Performed By: #### TSH, BMP #### [facility] [address] [place] [address] Dr. Ladan DiehlCholesterol in HDL [Mass/Vol]43 mg/tYTjwoaf04-86Btv [facility] CenterComment on above:Performed By: #### TSH, BMP #### [facility] [address] [place] [address] Dr. Ladan Mishraesterol in LDL [Mass/Vol]48.8 mg/dLLima City HospitalComment on above:Performed By: #### TSH, BMP #### [facility] [address] [place] [address] Dr. Ladan Romero.total/Cholesterol in HDL [Mass ratio]2.7 {ratio} NormalThe [facility] Medical CenterComment on above:Performed By: #### TSH, BMP #### [facility] [address] [place] [address] Dr. Ladan Gant NORMAL> or = 60 mg/dl - LOW CARDIOVASCULAR RISK <40 mg/dl - HIGH CARDIOVASCULAR RISKLima City HospitalComment on above:Performed By: #### TSH, BMP #### [facility] [address] [place] [address] Dr. Ladan Leiva CALC NORMALSEE BELOWLima City HospitalComment on above:Result Comment: <100 mg/dl OPTIMAL 100 - 129 mg/dl NEAR OR ABOVE OPTIMAL 130 - 159 mg/dl BORDERLINE HIGH 160 - 189 mg/dl HIGH >190 mg/dl VERY HIGH Performed By: #### TSH, BMP #### [facility] [address] [place] [address] Dr. Ladan DiehlTriglyceride [Mass/Vol]131 mg/dLNormal<=150[facility] Comment on above:Performed By: #### TSH, BMP #### [facility] [address] [place] [address] Dr. Ladan ManriqueLDL CALC26.2 mg/dLNoAdams County Regional Medical CenterComment on above: Performed By: #### TSH, BMP #### [facility] [address] [place] [address] Dr. Ladan Varma PROFILEon 09-01-1839Sliqcpr [Mass/Vol]2.7 g/dLCritically low3.4-5.0The [facility] CenterComment on above:Performed By: #### TSH, BMP #### [facility] [address] [place] [address] Dr. Ladan DiehlAlbumin/Globulin [Mass ratio]0.4 {ratio}NormalThe [facility] Medical CenterComment on above:Performed By: #### TSH, BMP #### [facility] [address] [place] [address] [address] Ladan MontañoP [Catalytic activity/Vol]154 U/LCritically qoer76-360Cnt [facility] CenterComment on above:Performed By: #### TSH, BMP #### [facility] [address] [place] [address] [address] Ladan Gregg [Catalytic activity/Vol]25 U/UGbrgso44-46Kag [facility] CenterComment on above:Performed By: #### TSH, BMP #### [facility] [address] [place] [address] Dr. Ladan DiehlAST [Catalytic activity/Vol]38 U/LCritically owsc30-43Euy [facility] CenterComment on above:Performed By: #### TSH, BMP #### [facility] [address] [place] [address] Dr. Ladan TrejoI, CONJUGATED0.2 mg/dLNormal0.0-0.2The [facility] Comment on above:Performed By: #### TSH, BMP #### [facility] [address] [place] [address] Dr. Ladan Trejoirubin [Mass/Vol]0.8 mg/dLNormal0.2-1.0The [facility] Comment on above:Performed By: #### TSH, BMP #### [facility] [address] [place] [address] Dr. Ladan DiehlGlobulin (S) [Mass/Vol]6.2 g/dLNormalThe [facility] CenterComment on above:Performed By: #### TSH, BMP #### [facility] [address] [place] [address] Dr. Ladan DiehlProtein [Mass/Vol]8.9 g/dLCritically high6.4-8.2The [facility] CenterComment on above:Performed By: #### TSH, BMP #### [facility] [address] [place] [address] [address] Ladan MauricioALBUMIN, RAND URon 27-46-7535zCPL58.4 mg/dLNormal<=30.0The [facility] CenterComment on above:Performed By: #### TSH, BMP #### [facility] [address] [place] [address] [address] Ladan DiehlPROF CHEM 8 (BAS METB)on 92-55-8304Catsb gap [Moles/Vol]10.7 mmol/LNormalThe [facility] CenterComment on above:Performed By: #### TSH, BMP #### [facility] [address] [place] [address] Dr. Ladan DiehlCalcium [Mass/Vol]9.0 mg/dLNormal8.5-10.1[facility] Comment on above:Performed By: #### TSH, BMP #### [facility] [address] [place] [address] Dr. Ladan DiehlChloride [Moles/Vol]103 mmol/IBjwhth79-278Lwf [facility] Comment on above:Performed By: #### TSH, BMP #### [facility] [address] [place] [address] Dr. Ladan DiehlCO2 [Moles/Vol]27.5 mmol/RBfrqmh46.0-32.0The [facility] Comment on above:Performed By: #### TSH, BMP #### [facility] [address] [place] [address] Dr. Ladan DiehlCreatinine [Mass/Vol]1.29 mg/dLNormal0.70-1.30The [facility] CenterComment on above:Performed By: #### TSH, BMP #### [facility] [address] [place] [address] Dr. Pickering ChangEGFR-AF MONTENEGRIN>60Normal>=60The [facility] CenterComment on above:Performed By: #### TSH, BMP #### [facility] [address] [place] [address] Dr. Ladan JosephGFR-NON AF UDTLEFKI85 mL/min/1.28g1Rlazedbbox low>=60The [facility] CenterComment on above:Performed By: #### TSH, BMP #### [facility] [address] [place] [address] [address] Ladan DiehlGlucose [Mass/Vol]108 mg/dLCritically gerf18-528Nrw [facility] CenterComment on above:Performed By: #### TSH, BMP #### [facility] [address] [place] [address] [address] Ladan DiehlPotassium [Moles/Vol]4.2 mmol/LNormal3.5-5.1[facility] Comment on above:Performed By: #### TSH, BMP #### [facility] [address] [place] [address] [address] Ladan DiehlSodium [Moles/Vol]137 mmol/DRlkvse465-726ZijMarietta Memorial Hospital Comment on above:Performed By: #### TSH, BMP #### [facility] [address] [place] [address] [address] Ladan DiehlUrea nitrogen [Mass/Vol]12.0 mg/dLNormal7.0-18.0The [facility] CenterComment on above:Performed By: #### TSH, BMP #### [facility] [address] [place] [address] Dr. Ladan Wilson nitrogen/Creatinine [Mass ratio]9.3 mg/mgNormalThe [facility] CenterComment on above:Performed By: #### TSH, BMP #### [facility] [address] [place] [address] Dr. Ladan Quiles 09-76-3416APF8.668 uIU/mLCritically high0.358-3.740The [facility] CenterComment on above:Performed By: #### TSH, BMP #### [facility] [address] [place] [address] Dr. Ladan DiehlGLYCOHEMOGLOBIN A1Con 05-70-9824ZAX RECOMMENDATIONSEE BELOWNormal The [facility] Medical CenterComment on above:Result Comment: ADA RECOMMENDED LIMIT 4.0 - 6.0 ADA THERAPEUTIC TARGET < 7.0 ACTION SUGGESTED > 7.0Performed By: #### A1C #### [facility] [address] [place] [address] [address] Ladan DiehlGlucose [Mass/Vol]140 mg/dLNoAdams County Regional Medical CenterComment on above:Performed By: #### A1C #### [facility] [address] [place], [place] [address] Dr. Ladan DiehlHbA1c (Bld) [Mass fraction]6.5 %Critically high4.5-6.2The [facility] CenterComment on above:Performed By: #### A1C #### [facility] [address] [place] [address] [address] Ladan DiehlCT CSPINE WO CONon 73-52-8522WZ CSPINE WO CONEXAMINATION: CT CSPINE WO CON [...] Electronically authenticated by: CAROL YIP Date: 2022-05-17 13:25NoAdams County Regional Medical CenterCT HEAD WO CONon 32-01-1181JP HEAD WO CONEXAMINATION: CT HEAD WO CON [...] Electronically authenticated by: CAROL YIP Date: 2022-05-17 13:07Lima City HospitalXR CHEST 1 Von 51-52-3167FG CHEST 1 VPORTABLE CHEST X-RAY. INDICATION: Chest pain. COMPARISON: 01/18/2022 TECHNIQUE: Single AP portable chest radiograph. FINDINGS: TUBES AND LINES: None. LUNGS: Hyperexpanded lungs. Minimal left basilar opacities. PLEURA: Questionable trace left effusion. HEART AND MEDIASTINUM: Within normal limits for portable technique. OSSEOUS STRUCTURES: No acute abnormality. IMPRESSION: Minimal left basilar opacities probably atelectasis. Electronically authenticated by: ABBIE AMBROCIO Date: 2022-05-17 12:53[facility] HospitalProgress Noteson 76-63-5236Qeusugcswoavc Authentication Interface Message TextEMERGENCY TRIAGE, TREAT AND [...] Same ET3 Encounter Completed by: Yuri Kramer [facility] HospitalAdtrade System Activated partial thromboplastin time (aPTT) in platelet poor plasma by coagulation aOrdered By: Ramesh Byrd on 17-07-2999aQYA Coag (PPP) [Time] 24.8 s25.1-36.5FMorrow County HospitalAutomated erythrocytes count in urine sediment (number/area)Ordered By: Ramesh Byrd on 12-03-7449UEJ Auto (Urine sed) [#/Area]20-49 [HPF]0-4FMorrow County HospitalAutomated leukocytes count in urine sediment (number/area)Ordered By: Ramesh Byrd on 73-52-3265NDW Auto (Urine sed) [#/Area]1-2 [HPF]0-4FMorrow County HospitalBasophils Auto (Bld) [#/Vol]Ordered By: Ramesh Byrd on 04-12-2022 Basophils (Bld) [#/Vol]0.0 10*3/uL0.0-0.2FMorrow County Hospital Basophils/100 WBC Auto (Bld)Ordered By: Ramesh Byrd on 04-12-2022 Basophils/100 WBC (Bld)0.6 %.[facility] GeneralBilirubin Test strip Ql (U)Ordered By: Ramesh Byrd on 83-84-3935Uqrkvgjsi Ql (U)Negative NegativeCleveland Clinic Akron GeneralBlood hemoglobin measurement (mass/volume)Ordered By: Ramesh Byrd on 66-32-1835Foqiczsyvs (Bld) [Mass/Vol]12.2 g/dL13.0-17.0[facility] GeneralBlood leukocytes automated count (number/volume)Ordered By: Ramesh Byrd on 16-00-7237CND (Bld) [#/Vol]6.4 10*3/uL4.5-11.0[facility] GeneralBody fluid albumin measurement (mass/volume)Ordered By: Ramesh Byrd on 04-12-2022 Albumin (Body fld) [Mass/Vol]2.3 g/dL3.2-5.5FMorrow County Hospital Color Auto (U)Ordered By: Ramesh Byrd on 81-47-3122Reedd (U)YellowYellow [facility] GeneralCreatinine and Glomerular filtration rate.predicted panel (S/P/Bld)Ordered By: Ramesh Byrd on 04-12-2022 Creatinine [Mass/Vol]1.14 mg/dL0.64-1.27[facility] Eosinophils Auto (Bld) [#/Vol]Ordered By: Ramesh Byrd on 04-12-2022 Eosinophils (Bld) [#/Vol]0.2 10*3/uL0.0-0.45[facility] Eosinophils/100 WBC Auto (Bld)Ordered By: Ramesh Byrd on 04-12-2022 Eosinophils/100 WBC (Bld)2.7 %.[facility] GeneralErythrocyte distribution width Auto (RBC) [Ratio]Ordered By: Ramesh Byrd on 04-12-2022 Erythrocyte distribution width (RBC) [Ratio]16.7 %12.0-14.8[facility] GeneralEstimated glomerular filtration rate (GFR) non- Ordered By: Ramesh Byrd on 38-28-5619UNH/1.73 sq M.predicted among non- blacks MDRD (S/P/Bld) [Vol rate/Area]> 60 mL/MinCleveland Clinic Akron GeneralGlobulin Calc (S) [Mass/Vol]Ordered By: Ramesh Byrd on 04-12-2022 Globulin (S) [Mass/Vol]4.7 g/dLCleveland Clinic Akron GeneralGlucose Glucometer (BldC) [Mass/Vol]Ordered By: Ramesh Byrd on 67-55-7067Zdbnlrz [Mass/Vol]168 mg/dLCleveland Clinic Akron GeneralComment on above:Random Glucose Reference Range is dependent on time and content of last meal. Glucose of more than 200 mg/dL in a nonstressed, ambulatory subject supports the diagnosis of Diabetes Mellitus.Hematocrit Auto (Bld) [Volume fraction]Ordered By: Ramesh Byrd on 72-00-7219Jlywqxubev (Bld) [Volume fraction]36.7 % 38.8-50.0[facility] GeneralKetones Auto test strip (U) [Mass/Vol] Ordered By: Ramesh Byrd on 92-38-3720Gsjlqmj (U) [Mass/Vol]TraceNegative [facility] GeneralLaboratory - Chemistry and Chemistry - challengeOrdered By: Ramesh Byrd on 91-11-3743Cdmlsxoht [Mass/Vol]1.3 mg/dL1.6-2.6FMorrow County HospitalNatriuretic peptide B (Bld) [Mass/Vol]196.0 pg/mL5-100[facility] GeneralLaboratory - CoagulationOrdered By: Ramesh Byrd on 13-21-6430LF Coag (PPP) [Time]12.5 s 9.0-12.9[facility] GeneralLaboratory - Hematology and Cell counts Ordered By: Ramesh Byrd on 20-44-3449Mapowucpp RBC/100 WBC (Bld) [Ratio] 0.1 %0-0.5FMorrow County HospitalLaboratory - UrinalysisOrdered By: Ramesh Byrd on 42-45-1136Qunqpdp casts LM Ql (Urine sed)0-8 [LPF]0-8 [facility] GeneralLymphocytes Auto (Bld) [#/Vol]Ordered By: Ramesh Byrd on 08-15-8374Svylmfrhziu (Bld) [#/Vol]1.0 10*3/uL1.00-4.8 [facility] GeneralLymphocytes/100 WBC Auto (Bld)Ordered By: Ramesh Byrd on 38-70-8974Htdjjxsbwpw/100 WBC (Bld)16.1 %.[facility] GeneralMCH Auto (RBC) [Entitic mass]Ordered By: Ramesh Byrd on 19-37-4029LGN (RBC) [Entitic mass]31.0 pg27.5-35.2FMorrow County HospitalMCHC Auto (RBC) [Mass/Vol]Ordered By: Ramesh Byrd on 00-94-5805IKMX (RBC) [Mass/Vol]33.1 g/dL32.5-35.6FMorrow County HospitalMCV Auto (RBC) [Entitic vol]Ordered By: Ramesh Byrd on 80-66-8249JMS (RBC) [Entitic vol]93.5 fL83.5-101[facility] GeneralMonocytes Auto (Bld) [#/Vol]Ordered By: Ramesh Byrd on 56-61-3144Phfkcqmex (Bld) [#/Vol]0.8 10*3/uL0.0-0.8[facility] GeneralMonocytes/100 WBC Auto (Bld)Ordered By: Ramesh Byrd on 53-41-4599Aqqhenpiq/100 WBC (Bld)12.0 %. [facility] GeneralNeutrophils Auto (Bld) [#/Vol]Ordered By: Ramesh Byrd on 65-11-3155Slwbxoxgjzf (Bld) [#/Vol]4.4 10*3/uL1.8-7.7 [facility] GeneralNeutrophils/100 WBC Auto (Bld)Ordered By: Ramesh Byrd on 11-92-6622Brpqeolnypa/100 WBC (Bld)68.6 %.[facility] GeneralNitrite Test strip Ql (U)Ordered By: Ramesh Byrd on 82-45-8886Posyrfs Ql (U)NegativeNegativeCleveland Clinic Akron GeneralNo Panel InformationOrdered By: Ramesh Byrd on 29-15-0333Brokdwrdt GFR ()> 60 mL/MinCleveland Clinic Akron GeneralComment on above: GFR estimated reference range: According to KDOQI guidelines, <60 ml/min/1.73m2 is sufficient todiagnose a patient with chronic kidney disease.Pharmacy Creatinine Clearance (Chem97.67[facility] GeneralPlatelet mean volume Auto (Bld) [Entitic vol]Ordered By: Ramesh Byrd on 04-12-2022 Platelet mean volume (Bld) [Entitic vol]8.0 fL6.6-10.1FMorrow County HospitalPlatelet poor plasma international normalized ratio (INR) by coagulation assay (relatOrdered By: Ramesh Byrd on 49-59-2597ZWZ Coag (PPP) [Relative time]1.1 {INR}[facility] GeneralComment on above:INR Therapeutic Range A) Pre- and [...] Auto (Bld) [#/Vol]Ordered By: Ramesh Byrd on 49-94-8044Mwcazoaxc (Bld) [#/Vol]191 10*3/eM408-055SmnpocnrwCleveland Clinic Akron GeneralProtein Auto test strip (U) [Mass/Vol]Ordered By: Ramesh Byrd on 08-34-7041Ztwmlzl (U) [Mass/Vol]100 mg/dLNegativeCleveland Clinic Akron GeneralProtein [Mass/volume] in Serum or PlasmaOrdered By: Ramesh Byrd on 74-53-2039Nublhby [Mass/Vol]7.0 g/dL 6.1-7.9[facility] GeneralRBC Auto (Bld) [#/Vol]Ordered By: Ramesh Byrd on 78-42-0147IKV (Bld) [#/Vol]3.93 10*6/uL3.90-5.60[facility] Toledoerum or plasma alanine aminotransferase measurement without P-5'-P (enzymatic activiOrdered By: Ramesh Byrd on 58-27-5879JJJ No additional P-5'-P [Catalytic activity/Vol]34 U/Z62-18TevsfihktRegency Hospital Toledoerum or plasma albumin/globulin mass ratioOrdered By: Ramesh Byrd on 25-25-9397Cnznajo/Globulin [Mass ratio]0.5 {ratio}[facility] Toledoerum or plasma alkaline phosphatase measurement (enzymatic activity/volume)Ordered By: Ramesh Byrd on 42-00-8917WVP [Catalytic activity/Vol]97 U/N39-06SsopxqcfqRegency Hospital Toledoerum or plasma anion gap determinationOrdered By: Ramesh Byrd on 10-69-5742Yyrdz gap [Moles/Vol]17.1 mmol/L6.0-15.0[facility] Toledoerum or plasma aspartate aminotransferase measurement (enzymatic activity/volume)Ordered By: Ramesh Byrd on 54-13-5665PNR [Catalytic activity/Vol]136 U/O03-04JkxzykfiyRegency Hospital Toledoerum or plasma calcium measurement (mass/volume)Ordered By: Ramesh Byrd on 49-42-2323Vfznopa [Mass/Vol]8.6 mg/dL8.2-10.2FC[facility] Clinic [facility] Hospital for Rehabilitationerum or plasma chloride measurement (moles/volume) Ordered By: Ramesh Byrd on 45-10-9869Fktfjhoe [Moles/Vol]97 mmol/L95-114 [facility] Toledoerum or plasma glucose measurement (mass/volume)Ordered By: Ramesh Byrd on 80-53-6176Xhrjagi [Mass/Vol]164 mg/tT77-233FssvtbwkcCleveland Clinic Akron GeneralComment on above:ADA recommended reference range Random Glucose Reference Range is dependent on time and content of last meal. Glucose of more than 200 mg/dL in a nonstressed, ambulatory subject supports the diagnosis of Diabetes Mellitus.Serum or plasma potassium measurement (moles/volume)Ordered By: Ramesh Byrd on 24-59-8417Qlghtqcwr [Moles/Vol] 3.5 mmol/L3.5-5.1FCleveland Clinic Children's Hospital for Rehabilitationerum or plasma sodium measurement (moles/volume)Ordered By: Ramesh Byrd on 30-36-4411Jjapgw [Moles/Vol]136 mmol/L899-296ZqgpoohziRegency Hospital Toledoerum or plasma total bilirubin measurement (mass/volume)Ordered By: Ramesh Byrd on 70-89-3557Riryzhmxu [Mass/Vol]1.3 mg/dL0.3-1.2FMorrow County Hospital Comment on above:Samples from patients who have taken Naproxen have shown spurious elevation in Total Bilirubin levels. A metabolite of Naproxen, O- desmethylnaproxen, has been shown to interfere with the Ronny-Chirag method for measuring Total Bilirubin.Serum or plasma total carbon dioxide measurement (moles/volume)Ordered By: Ramesh Byrd on 44-74-6965GZ0 [Moles/Vol]25.4 mmol/L22.0-30.0[facility] Toledoerum or plasma urea nitrogen measurement (mass/volume)Ordered By: Ramesh Byrd on 42-12-5511Maim nitrogen [Mass/Vol]13 mg/dL9-23[facility] Toledopecific gravity Auto test strip (U) [Rel density]Ordered By: Ramesh Byrd on 04-12-2022 Specific gravity (U) [Rel density]1.0201.001-1.030[facility] Toledoquamous epithelial cells detection in urine sediment by light microscopy Ordered By: Ramesh Byrd on 24-53-8589Bicomgitnd cells.squamous LM Ql (Urine sed)0-1 [HPF]0-2FMorrow County HospitalTS DL <= 0.005 mIU/L Qn Ordered By: Ramesh Byrd on 61-95-8145HLV Qn13.14 m[IU]/L0.45-5.33[facility] GeneralTroponin I.cardiac [Mass/volume] in Serum or Plasma by High sensitivity methodOrdered By: Ramesh Byrd on 25-84-0514Kgwpsene I.cardiac High sensitivity method [Mass/Vol]18 pg/mL0-20[facility] GeneralUrine bacteria detection by automated methodOrdered By: Ramesh Byrd on 36-12-0212Mezcqrxo Auto Ql (U)None seenNone SeenCleveland Clinic Akron GeneralUrine clarity by refractometry automatedOrdered By: Ramesh Byrd on 39-96-9261Xraygyp Refractometry automated (U)ClearClearFMorrow County HospitalUrine glucose measurement by automated test strip (mass/volume)Ordered By: Ramesh Byrd on 19-06-2329Vyqqmwy Auto test strip (U) [Mass/Vol]Normal mg/dLNoUniversity Hospitals Portage Medical CenterUrine hemoglobin detection by automated test stripOrdered By: Ramesh Byrd on 23-82-8740Ghdyaocowa Auto test strip Ql (U)2+NegativeCleveland Clinic Akron GeneralUrine leukocyte esterase detection by automated test stripOrdered By: Ramesh Byrd on 81-05-9214Kjouptskf esterase Auto test strip Ql (U)Negative NegativeCleveland Clinic Akron GeneralUrobilinogen Auto test strip (U) [Mass/Vol]Ordered By: Ramesh Byrd on 18-18-7034Uajgcugjtuic (U) [Mass/Vol] Normal mg/dLNormTriHealth Good Samaritan HospitalpH Auto test strip (U)Ordered By: Ramesh Byrd on 09-49-2945nW (U)6.5 [pH]5.0-9.0[facility] GeneralAlbumin [Mass/volume] in Serum or PlasmaOrdered By: Lupe Hernandez on 20-61-3451Gzpdpeu [Mass/Vol]1.9 g/dL3.2-5.5FMorrow County Hospital Basophils Auto (Bld) [#/Vol]Ordered By: Lupe Hernandez on 62-96-5494Egbaiaqeo (Bld) [#/Vol]0.1 10*3/uL0.0-0.2FMorrow County HospitalBasophils/100 WBC Auto (Bld)Ordered By: Lupe Hernandez on 77-37-5381Mtqcynytv/100 WBC (Bld)1.3 %.[facility] GeneralBlood hemoglobin measurement (mass/volume) Ordered By: Lupe Hernandez on 52-99-3428Neqacdxwhy (Bld) [Mass/Vol]11.2 g/dL 13.0-17.0[facility] GeneralBlood leukocytes automated count (number/volume)Ordered By: Lupe Hernandez on 66-74-1394SYD (Bld) [#/Vol]5.4 10*3/uL4.5-11.0[facility] GeneralCreatinine and Glomerular filtration rate.predicted panel (S/P/Bld)Ordered By: Lupe Hernandez on 04-09-2022 Creatinine [Mass/Vol]0.88 mg/dL0.64-1.27[facility] Eosinophils Auto (Bld) [#/Vol]Ordered By: Lupe Hernandez on 10-17-6695Eagbapomgrc (Bld) [#/Vol]0.3 10*3/uL0.0-0.45[facility] Eosinophils/100 WBC Auto (Bld)Ordered By: Lupe Hernandez on 04-09-2022 Eosinophils/100 WBC (Bld)5.6 %.[facility] GeneralErythrocyte distribution width Auto (RBC) [Ratio]Ordered By: Lupe Hernandez on 04-09-2022 Erythrocyte distribution width (RBC) [Ratio]16.5 %12.0-14.8[facility] GeneralEstimated glomerular filtration rate (GFR) non- Ordered By: Lupe Hernandez on 01-56-9010OYD/1.73 sq M.predicted among non-blacks MDRD (S/P/Bld) [Vol rate/Area]> 60 mL/MinCleveland Clinic [facility] General Globulin Calc (S) [Mass/Vol]Ordered By: Lupe Hernandez on 71-05-4116Lgwwqnlr (S) [Mass/Vol]4.2 g/dLCleveland Clinic Akron GeneralGlucose Glucometer (BldC) [Mass/Vol]Ordered By: Lupe Hernandez on 01-55-2106Zlchfys [Mass/Vol]178 mg/dL [facility] GeneralComment on above:Random Glucose Reference Range is dependent on time and content of last meal. Glucose of more than 200 mg/dL in a nonstressed, ambulatory subject supports the diagnosis of Diabetes Mellitus.Hematocrit Auto (Bld) [Volume fraction]Ordered By: Lupe Hernandez on 79-83-8453Wkebddomaw (Bld) [Volume fraction]33.6 %38.8-50.0[facility] GeneralLaboratory - Hematology and Cell countsOrdered By: Lupe Hernandez on 45-00-5816Akexwdzyn RBC/100 WBC (Bld) [Ratio]0.2 %0-0.5FMorrow County HospitalLymphocytes Auto (Bld) [#/Vol]Ordered By: Lupe Hernandez on 73-81-2881Gqfitcuyxmz (Bld) [#/Vol]1.0 10*3/uL1.00-4.8[facility] GeneralLymphocytes/100 WBC Auto (Bld)Ordered By: Lupe Hernandez on 04-09-2022 Lymphocytes/100 WBC (Bld)18.3 %.[facility] CenterH Auto (RBC) [Entitic mass]Ordered By: Lupe Henrandez on 54-81-6348SKW (RBC) [Entitic mass] 31.1 pg27.5-35.2FMorrow County HospitalMCHC Auto (RBC) [Mass/Vol] Ordered By: Lupe Hernandez on 70-57-5935GBBJ (RBC) [Mass/Vol]33.5 g/dL32.5-35.6 [facility] GeneralMCV Auto (RBC) [Entitic vol]Ordered By: Lupe Hernandez on 68-33-0943DDE (RBC) [Entitic vol]93.0 fL83.5-101[facility] GeneralMonocytes Auto (Bld) [#/Vol]Ordered By: Lupe Hernandez on 19-41-3777Tmgyculqf (Bld) [#/Vol]0.6 10*3/uL0.0-0.8[facility] GeneralMonocytes/100 WBC Auto (Bld)Ordered By: Lupe Hernandez on 04-09-2022 Monocytes/100 WBC (Bld)11.0 %.[facility] GeneralNeutrophils Auto (Bld) [#/Vol]Ordered By: Lupe Hernandez on 62-07-4886Zafqlsugyfr (Bld) [#/Vol]3.4 10*3/uL1.8-7.7FMorrow County HospitalNeutrophils/100 WBC Auto (Bld) Ordered By: Lupe Hernandez on 58-55-6580Vjfitoblfaw/100 WBC (Bld)63.8 %.[facility] GeneralNo Panel InformationOrdered By: Lupe Hernandez on 63-73-3423Hxflmne Glucose CommentGlu2: cleaned meterCleveland Clinic Akron GeneralEstimated GFR ()> 60 mL/MinCleveland Clinic Akron GeneralComment on above:GFR estimated reference range: According to KDOQI guidelines, <60 ml/min/1.73m2 is sufficient todiagnose a patient with chronic kidney disease.Pharmacy Creatinine Clearance (Akwy354.27[facility] GeneralPlatelet mean volume Auto (Bld) [Entitic vol]Ordered By: Lupe Hernandez on 47-62-3395Zxvohbkh mean volume (Bld) [Entitic vol]7.6 fL6.6-10.1 [facility] GeneralPlatelets Auto (Bld) [#/Vol]Ordered By: Lupe Hernandez on 22-09-9999Jhnadntsb (Bld) [#/Vol]214 10*3/xA854-784ZlbvslibcCleveland Clinic Akron GeneralProtein [Mass/volume] in Serum or PlasmaOrdered By: Lupe Hernandez on 97-65-9024Ejqvixq [Mass/Vol]6.1 g/dL6.1-7.9[facility] RBC Auto (Bld) [#/Vol]Ordered By: Lupe Hernandez on 45-73-1125DIB (Bld) [#/Vol] 3.61 10*6/uL3.90-5.60[facility] Toledoerum or plasma alanine aminotransferase measurement without P-5'-P (enzymatic activiOrdered By: Lupe Hernandez on 42-41-9488KLK No additional P-5'-P [Catalytic activity/Vol]21 U/L10-60 [facility] Toledoerum or plasma albumin/globulin mass ratio Ordered By: Lupe Hernandez on 54-43-9380Dvpjvgz/Globulin [Mass ratio]0.5 {ratio} [facility]edoerum or plasma alkaline phosphatase measurement (enzymatic activity/volume)Ordered By: Lupe Hernandez on 04-09-2022 ALP [Catalytic activity/Vol]89 U/B99-87KjshoahdoRegency Hospital Toledoerum or plasma anion gap determinationOrdered By: Lupe Hernandez on 90-84-4600Pygtc gap [Moles/Vol]8.4 mmol/L6.0-15.0[facility] Toledoerum or plasma aspartate aminotransferase measurement (enzymatic activity/volume)Ordered By: Lupe Hernandez on 04-41-2015REE [Catalytic activity/Vol]27 U/Y19-76ErqbccoaxRegency Hospital Toledoerum or plasma calcium measurement (mass/volume)Ordered By: Lupe Hernandez on 53-59-5341Zjfzarq [Mass/Vol]8.2 mg/dL8.2-10.2FCleveland Clinic Children[facility] Hospital for Rehabilitationerum or plasma chloride measurement (moles/volume) Ordered By: Lupe Hernandez on 89-31-2249Faokkvyl [Moles/Vol]98 mmol/L95-114 [facility] Toledoerum or plasma glucose measurement (mass/volume)Ordered By: Lupe Hernandez on 10-65-5140Wznltgn [Mass/Vol]150 mg/dL 70-100[facility] GeneralComment on above:ADA recommended reference range Random Glucose Reference Range is dependent on time and content of last meal. Glucose of more than 200 mg/dL in a nonstressed, ambulatory subject supports the diagnosis of Diabetes Mellitus.Serum or plasma potassium measurement (moles/volume)Ordered By: Lupe Hernandez on 57-59-0678Jchrrrrcl [Moles/Vol]3.4 mmol/L3.5-5.1FCleveland Clinic Children's Hospital for Rehabilitationerum or plasma sodium measurement (moles/volume)Ordered By: Lupe Hernandez on 58-74-9949Xrixuz [Moles/Vol]134 mmol/U919-535VemlkuwlzRegency Hospital Toledoerum or plasma total bilirubin measurement (mass/volume)Ordered By: Lupe Hernandez on 71-24-0773Reedzdrlt [Mass/Vol]0.7 mg/dL0.3-1.2FCleveland Clinic Children's Hospital for Rehabilitationerum or plasma total carbon dioxide measurement (moles/volume)Ordered By: Lupe Hernandez on 43-19-8470PN4 [Moles/Vol]31.0 mmol/L22.0-30.0[facility] Serum or plasma urea nitrogen measurement (mass/volume)Ordered By: Lupe Hernandez on 05-30-1285Ipjk nitrogen [Mass/Vol]9 mg/dL9-23[facility] GeneralBacterial blood cultureOrdered By: Luke Moran on 34-50-2024Iloqinid identified Cx Nom (Bld)NO GROWTH 5 DAYSCleveland Clinic Akron General Laboratory - Chemistry and Chemistry - challengeOrdered By: Luke Moran on 06-85-7497ZF6 [Moles/Vol]29.4 mmol/L23.0-27.0[facility] HCO3 (Bld) [Moles/Vol]28.1 mmol/L23.0-29.0[facility] GeneralNo Panel InformationOrdered By: Luke Moran on 79-17-5713Nqewzhcc Blood Base Excess3.4 mmol/L-3.0-3.0[facility] GeneralArterial Blood Oxygen Content6.4 mmol/L6.6-9.7FMorrow County HospitalArterial Blood Oxygen Rzakrkkvtt11.1 %95.0-100.0[facility] GeneralArterial Blood Partial Pressure CO243.2 mm[Hg]35.0-45.0[facility] Arterial Blood Partial Pressure O261.4 mm[Hg]80.0-100.0[facility] GeneralArterial Blood pH7.437.35-7.45[facility] Blood Gas Critical ValueSee commentCleveland Clinic Akron GeneralComment on above:Critical Value called on: 04/04/2022 at 09:33Blood Gas Liter Flow2 L/min [facility] GeneralBlood Gas Sample SiteLeft radialCleveland Clinic Akron GeneralFiO228 %[facility] GeneralOxygen Delivery DeviceNasal cannulaCleveland Clinic Ak[facility] GeneralAutomated erythrocytes count in urine sediment (number/area)Ordered By: Jair Gabriel on 89-12-8099NSE Auto (Urine sed) [#/Area]3-4 [HPF]0-4FMorrow County HospitalAutomated leukocytes count in urine sediment (number/area)Ordered By: Jair Gabriel on 51-89-2953LLZ Auto (Urine sed) [#/Area]None seen [HPF]0-4FMorrow County HospitalBilirubin Test strip Ql (U)Ordered By: Jair Gabriel on 04-03-2022 Bilirubin Ql (U)NegativeNegativeCleveland Clinic Akron GeneralColor Auto (U) Ordered By: Jair Gabriel on 17-59-4040Asyym (U)YellowYellowCleveland Clinic Akron GeneralHepatitis B virus surface Ag [Presence] in Serum or Plasma by ImmunoassayOrdered By: Luke Moran on 48-40-1524TBE surface Ag IA QlNegative NegativeCleveland Clinic Akron GeneralComment on above:Performed at: [address] [id number] [employer]: Genaro Becerril PhD, Phone: [phone] [Mass/volume] in Serum or PlasmaOrdered By: Luke Moran on 28-84-2160EbX [Mass/Vol]697 mg/zD36-785 [facility] GeneralIgG [Mass/volume] in Serum or PlasmaOrdered By: Luke Moran on 10-10-3412RzF [Mass/Vol]1107 mg/mS904-9142XmtzzymabCleveland Clinic Akron GeneralIgM [Mass/volume] in Serum or PlasmaOrdered By: Luke oMran on 26-22-2622JyF [Mass/Vol]91 mg/nH68-415UqxafjwemCleveland Clinic Akron GeneralComment on above:Performed at: [address] [id number] [employer]: Genaro Becreril PhD, Phone: [phone] for Urine Ordered By: Luke Moran on 54-62-5695Snkznoeykpidha Immunofixation (U) [Interp]See comment.[facility] GeneralComment on above:No monoclonality detected. Performed at: [address] [id number] [employer]: Genaro Becerril PhD, Phone: [phone] light chains.kappa.free [Mass/volume] in SerumOrdered By: Luke Moran on 04-03-2022 Immunoglobulin light chains.kappa.free (S) [Mass/Vol]93.9 mg/L3.3-19.4FMorrow County HospitalImmunoglobulin light chains.kappa.free/Immunoglobulin light chains.lambda.free [MassOrdered By: Luke Moran on 04-03-2022 Immunoglobulin light chains.kappa.free/Immunoglobulin light chains.lambda.free (S) [Mass ratio]1.520.26-1.65[facility] GeneralComment on above: Performed at: [facility] [id number] [employer]: Genaro Becerril PhD, Phone: [phone] light chains.lambda.free [Mass/volume] in Serum or PlasmaOrdered By: Luke Moran on 95-97-1765Pdfbqfyxzprgch light chains.lambda.free [Mass/Vol]61.6 mg/L5.7-26.3 [facility] GeneralKetones Auto test strip (U) [Mass/Vol]Ordered By: Jair Gabriel on 71-12-8017Zeprrnk (U) [Mass/Vol]NegativeNegativeCleveland Clinic Akron GeneralLaboratory - UrinalysisOrdered By: Jair Gabriel on 35-60-4623Fnkquag casts LM Ql (Urine sed)0-8 [LPF]0-8[facility] GeneralNitrite Test strip Ql (U)Ordered By: Jair Gabriel on 08-14-4131Cavioou Ql (U)NegativeNegativeCleveland Clinic Akron GeneralNo Panel InformationOrdered By: Luke Moran on 74-36-0923Vuoogsghc C InterpretationSee comment.[facility] GeneralComment on above:Negative Not infected with HCV, unless recent infection is suspected or other evidence exists to indicate HCV infection.Hepatitis C RNA QuantitativeN/[facility] Hospitalerum ImmunofixationSee comment.[facility] GeneralComment on above: Immunofixation shows IgG monoclonal protein with lambda light chain specificity.Protein Auto test strip (U) [Mass/Vol]Ordered By: Jair Gabriel on 09-69-8562Igrltcq (U) [Mass/Vol]NegativeNegativeCleveland Clinic Akron GeneralRandom cortisol measurementOrdered By: Luke Moran on 47-72-0744Rrazvmeh [Mass/Vol]5.8 ug/dLCleveland Clinic Akron GeneralComment on above:Reference range: AM 6 - 24 ug/dl PM <10 ug/dlSerum hepatitis B virus surface antibody detectionOrdered By: Luke Moran on 87-56-1508BJQ surface Ab Ql (S)Reactive.[facility] GeneralComment on above:Non Reactive: Inconsistent with immunity, less than 10 mIU/mL Reactive: Consistent with immunity, greater than 9.9 mIU/mL --- 04/04/22735 --- Hep B Cyndee Ab previously reported as: Non Reactive Non Reactive: Inconsistent with immunity, less than 10 mIU/mL Reactive: Consistent with immunity, greater than 9.9 mIU/mLSerum or plasma hepatitis C virus antibody signal/cutoff ratio by immunoassay (relatiOrdered By: Luke Moran on 96-70-1597YQS Ab Signal/Cutoff IA [Rel units/Vol]0.1 s/co ratio0.0-0.9[facility] GeneralComment on above:--- 04/04/22735 --- Hep C Ab previously reported as: <0.1 s/co ratio Specific gravity Auto test strip (U) [Rel density]Ordered By: Jair Gabriel on 29-39-1460Sjjiyjgp gravity (U) [Rel density]1.0351.001-1.030[facility] Toledoquamous epithelial cells detection in urine sediment by light microscopyOrdered By: Jair Gabriel on 22-64-9836Dhfkhpwpqn cells.squamous LM Ql (Urine sed)None seen [HPF]0-2FAdams County [facility] DL <= 0.005 mIU/L QnOrdered By: Luke Moran on 09-64-9026WYH Qn22.19 m[IU]/L0.45-5.33 [facility] GeneralUrine bacteria detection by automated method Ordered By: Jair Gabriel on 40-95-7232Cfwbwqxj Auto Ql (U)None seenNone Seen [facility] GeneralUrine clarity by refractometry automatedOrdered By: Jair Gabriel on 27-08-7360Iqyyltf Refractometry automated (U)ClearClear [facility] GeneralUrine glucose measurement by automated test strip (mass/volume)Ordered By: Jair Gabriel on 75-01-4702Vwlnvnv Auto test strip (U) [Mass/Vol]100 mg/dLNormalCleveland Clinic Akron GeneralUrine hemoglobin detection by automated test stripOrdered By: Jair Crowderzi on 72-07-8783Nxvuaqoycy Auto test strip Ql (U)3+NegativeCleveland Clinic Akron GeneralUrine leukocyte esterase detection by automated test stripOrdered By: Jair Crowderzi on 44-07-5051Nyybwkkog esterase Auto test strip Ql (U)NegativeNegativeCleveland Clinic Akron GeneralUrobilinogen Auto test strip (U) [Mass/Vol]Ordered By: Jair Crowderzi on 55-47-0722Ggwgnadsguuk (U) [Mass/Vol]Normal mg/dLNormalCleveland Clinic Akron GeneralpH Auto test strip (U)Ordered By: Jair Crowderzi on 24-24-4858qZ (U)5.0 [pH]5.0-9.0[facility] GeneralActivated partial thromboplastin time (aPTT) in platelet poor plasma by coagulation a Ordered By: Jair Gabriel on 78-87-1095cHPB Coag (PPP) [Time]24.8 s25.1-36.5 [facility] GeneralCOVID-19 Positive/NegativeOrdered By: Jairsydnee Gabriel on 99-24-5282WSAE-CoV-2 (COVID-19) N gene MANJIT+probe Ql (Resp)Negative NegativeCleveland Clinic Akron GeneralComment on above:Testing for SARS-CoV-2 by RT-PCR This test was developed and its performance characteristics determined by [employer] ([employer]) and validated at the [facility]. This test has not been FDA cleared [...] revoked sooner.COVID-19 SOFIAOrdered By: Jair Gabriel on 49-02-6408FLJR-CoV+SARS-CoV-2 (COVID-19) Ag IA.rapid Ql (Resp)NegativeNegative [facility] GeneralComment on above:This is a duplicate Cristal SARS Antigen (GONZALO) result to be used for statistical tracking purpose only. Laboratory - Chemistry and Chemistry - challengeOrdered By: Jair Gabriel on 01-59-2679Kaocpqqntkw peptide B (Bld) [Mass/Vol]55.0 pg/mL5-100[facility] GeneralLaboratory - CoagulationOrdered By: Jair Gabriel on 91-78-1469FD Coag (PPP) [Time]11.9 s9.0-12.9[facility] GeneralNo Panel InformationOrdered By: Luke Moran on 21-11-1230K-Dimer Quantitative (PE/DVT)2825 ng/mL0-243[facility] GeneralComment on above:The reference range for D-dimer is [...] By: Jair Gabriel on 04-02-2022 SARS Antigen (LFIA)[facility] GeneralPlatelet poor plasma international normalized ratio (INR) by coagulation assay (relatOrdered By: Jair Gabriel on 51-66-4341FEN Coag (PPP) [Relative time]1.1 {INR}[facility] GeneralComment on above:INR Therapeutic Range A) Pre- and [...] High sensitivity methodOrdered By: Jair Gabriel on 96-62-5011Zawuibrg I.cardiac High sensitivity method [Mass/Vol]26 pg/mL 0-20[facility] GeneralAlbumin [Mass/volume] in Serum or Plasma Ordered By: Sarah Osuna on 59-56-7097Qnambzo [Mass/Vol]1.9 g/dL3.2-5.5FMorrow County HospitalCreatinine and Glomerular filtration rate.predicted panel (S/P/Bld)Ordered By: Sarah Osuna on 90-59-4139Wfnissvubl [Mass/Vol]1.27 mg/dL0.64-1.27[facility] GeneralEstimated glomerular filtration rate (GFR) non- AmericanOrdered By: Sarah Osuna on 17-31-3010CIB/1.73 sq M.predicted among non-blacks MDRD (S/P/Bld) [Vol rate/Area]57 mL/MinCleveland Clinic Akron GeneralGlucose Glucometer (BldC) [Mass/Vol]Ordered By: Xin Phan on 38-23-5647Lfrkdry [Mass/Vol]377 mg/dLCleveland Clinic Akron General Comment on above:Random Glucose Reference Range is dependent on time and content of last meal. Glucose of more than 200 mg/dL in a nonstressed, ambulatory subject supports the diagnosis of Diabetes Mellitus.No Panel InformationOrdered By: Sarah Osuna on 49-26-8818Yjvlknyyo GFR ()> 60 mL/Min [facility] GeneralComment on above:GFR estimated reference range: According to KDOQI guidelines, <60 ml/min/1.73m2 is sufficient todiagnose a patient with chronic kidney disease.Pharmacy Creatinine Clearance (Chem90.76 [facility]edoerum or plasma calcium measurement (mass/volume)Ordered By: Sarah Osuna on 01-11-7741Nengbrv [Mass/Vol]8.4 mg/dL 8.2-10.2FCleveland Clinic [facility] Hospital for Rehabilitationerum or plasma chloride measurement (moles/volume)Ordered By: Sarah Osuna on 98-05-5515Ackedpje [Moles/Vol]99 mmol/X19-995IomeptsncRegency Hospital Toledoerum or plasma glucose measurement (mass/volume)Ordered By: Sarah Osuna on 07-81-5103Urtvnxv [Mass/Vol]265 mg/dL 70-100[facility] GeneralComment on above:Delta: 480 on 03/15/22-1040 ADA recommended reference range Random Glucose Reference Range is dependent on time and content of last meal. Glucose of more than 200 mg/dL in a nonstressed, ambulatory subject supports the diagnosis of Diabetes Mellitus.Serum or plasma potassium measurement (moles/volume)Ordered By: Xin Phan on 22-70-7584Epbzeoieg [Moles/Vol]4.0 mmol/L3.5-5.1FCleveland Clinic Children's Hospital for Rehabilitationerum or plasma sodium measurement (moles/volume)Ordered By: Sarah Osuna on 06-97-1376Fryfxx [Moles/Vol]132 mmol/G903-651KbuootgtpRegency Hospital Toledoerum or plasma total carbon dioxide measurement (moles/volume)Ordered By: Sarah Osuna on 14-47-4588ZG7 [Moles/Vol]25.4 mmol/L22.0-30.0[facility] Toledoerum or plasma urea nitrogen measurement (mass/volume)Ordered By: Sarah Osuna on 03-16-2022 Urea nitrogen [Mass/Vol]24 mg/dL9-23[facility] Toledoerum phospholipid phosphorus measurement (mass/volume)Ordered By: Xin Phan on 69-41-6010Eyyzgqwkktxn phosphorus (S) [Mass/Vol]2.0 mg/dL2.5-4.6FMorrow County HospitalNo Panel InformationOrdered By: Xin Phan on 50-25-3434Kwrodfu Glucose CommentSee commentCleveland Clinic [facility] General Comment on above:Glu2: WILL NOTIFY DR/RNBedside Glucose #2 CommentCleaned meter [facility] GeneralAutomated erythrocytes count in urine sediment (number/area)Ordered By: Sarah Osuna on 76-95-7679NBZ Auto (Urine sed) [#/Area] 0-1 [HPF]0-4FMorrow County HospitalAutomated leukocytes count in urine sediment (number/area)Ordered By: Sarah Osuna on 02-08-5880BHY Auto (Urine sed) [#/Area]0-1 [HPF]0-4FMorrow County HospitalBasophils Auto (Bld) [#/Vol]Ordered By: Leah Huang on 52-21-5392Wuxkymswg (Bld) [#/Vol]0.0 10*3/uL 0.0-0.2FMorrow County HospitalBasophils/100 WBC Auto (Bld)Ordered By: Leah Huang on 64-81-2435Kznehusep/100 WBC (Bld)0.2 %.[facility] GeneralBilirubin Auto test strip Ql (U)Ordered By: Sarah Osuna on 03-14-2022 Bilirubin Ql (U)NegativeNegativeCleveland Clinic Akron GeneralBlood hemoglobin measurement (mass/volume)Ordered By: Leah Huang on 03-14-2022 Hemoglobin (Bld) [Mass/Vol]11.6 g/dL13.0-17.0[facility] Blood leukocytes automated count (number/volume)Ordered By: Leah Huang on 26-03-5152WUH (Bld) [#/Vol]6.0 10*3/uL4.5-11.0[facility] Creatinine [Mass/volume] in UrineOrdered By: Sarah Osuna on 03-14-2022 Creatinine (U) [Mass/Vol]76.9 mg/dLCleveland Clinic Akron GeneralComment on above:No reference range establishedEosinophils Auto (Bld) [#/Vol]Ordered By: Leah Huang on 72-81-7624Dkqscsnkxlw (Bld) [#/Vol]0.1 10*3/uL0.0-0.45[facility] GeneralEosinophils/100 WBC Auto (Bld)Ordered By: Leah Huang on 58-86-5966Guhvaefzvol/100 WBC (Bld)1.4 %.[facility] Erythrocyte distribution width Auto (RBC) [Ratio]Ordered By: Leah Huang on 81-69-1768Tlhvyooixuf distribution width (RBC) [Ratio]15.8 %12.0-14.8[facility] GeneralGlobulin Calc (S) [Mass/Vol]Ordered By: Leah Huang on 69-16-2884Zdztucxa (S) [Mass/Vol]3.8 g/dLCleveland Clinic Akron General Glucose mean value [Mass/volume] in Blood Estimated from glycated hemoglobin Ordered By: Leah Huang on 94-93-3622Nzccbxq glucose Estimated from glycated hemoglobin (Bld) [Mass/Vol]329 mg/dLCleveland Clinic Akron GeneralHematocrit Auto (Bld) [Volume fraction]Ordered By: Leah Huang on 54-15-4909Efbyiwnwrt (Bld) [Volume fraction]35.1 %38.8-50.0[facility] Hemoglobin A1c percentageOrdered By: Leah Huang on 95-92-6912ArP5g (Bld) [Mass fraction]13.1 %4.3-5.6FMorrow County HospitalComment on above: Increased risk for diabetes: 5.7 - 6.4 diabetes: >6.4 glycemic control for adults with diabetes: <7.0Ketones Auto test strip (U) [Mass/Vol]Ordered By: Sarah Osuna on 75-85-2065Gtcgfcj (U) [Mass/Vol]Negative NegativeCleveland Clinic Akron GeneralLaboratory - Hematology and Cell counts Ordered By: Leah Huang on 59-33-0433Jwopykplb RBC/100 WBC (Bld) [Ratio]0.1 % 0-0.5FMorrow County HospitalLaboratory - UrinalysisOrdered By: Sarah Osuna on 18-46-2239Peacfaa casts LM Ql (Urine sed)0-8 [LPF]0-8[facility] GeneralLymphocytes Auto (Bld) [#/Vol]Ordered By: Leah Huang on 70-94-9121Vjfwykfjcyf (Bld) [#/Vol]1.4 10*3/uL1.00-4.8[facility] GeneralLymphocytes/100 WBC Auto (Bld)Ordered By: Leah Huang on 03-14-2022 Lymphocytes/100 WBC (Bld)22.7 %.[facility] Auto (RBC) [Entitic mass]Ordered By: Leah Huang on 54-83-0522TMA (RBC) [Entitic mass]29.9 pg27.5-35.2FMorrow County HospitalMCHC Auto (RBC) [Mass/Vol]Ordered By: Leah Huang on 29-19-7096MGDJ (RBC) [Mass/Vol]33.0 g/dL32.5-35.6FMorrow County HospitalMCV Auto (RBC) [Entitic vol]Ordered By: Leah Huang on 57-27-3800DWM (RBC) [Entitic vol]90.4 fL83.5-101[facility] GeneralMonocytes Auto (Bld) [#/Vol]Ordered By: Leah Huang on 12-00-0554Iyraqtypn (Bld) [#/Vol]0.5 10*3/uL0.0-0.8[facility] GeneralMonocytes/100 WBC Auto (Bld)Ordered By: Leah Huang on 94-26-1208Nhzfxmaut/100 WBC (Bld)9.0 %. [facility] GeneralNeutrophils Auto (Bld) [#/Vol]Ordered By: Leah Huang on 84-90-4648Gjusyzxbltu (Bld) [#/Vol]4.0 10*3/uL1.8-7.7FMorrow County HospitalNeutrophils/100 WBC Auto (Bld)Ordered By: Leah Huang on 23-48-9185Smrlbdlprog/100 WBC (Bld)66.7 %.[facility] Platelet mean volume Auto (Bld) [Entitic vol]Ordered By: Leah Huang on 87-69-4260Zlhjrqik mean volume (Bld) [Entitic vol]8.9 fL6.6-10.1FMorrow County HospitalPlatelets Auto (Bld) [#/Vol]Ordered By: Leah Huang on 93-87-1760Lohtdnhcx (Bld) [#/Vol]143 10*3/oJ458-860KoifatzseCleveland Clinic Akron GeneralProtein Auto test strip (U) [Mass/Vol]Ordered By: Sarah Osuna on 03-22-8078Jdbrkar (U) [Mass/Vol]NegativeNegativeCleveland Clinic Akron GeneralProtein [Mass/volume] in Serum or PlasmaOrdered By: Leah Huang on 22-66-7061Mdvqkas [Mass/Vol]5.8 g/dL6.1-7.9[facility] Protein [Mass/volume] in UrineOrdered By: Sarah Osuna on 47-44-7469Wuahkkl (U) [Mass/Vol]13 mg/dL0-9[facility] GeneralRBC Auto (Bld) [#/Vol] Ordered By: Leah Huang on 47-08-2186SST (Bld) [#/Vol]3.88 10*6/uL3.90-5.60 [facility] Toledoerum or plasma alanine aminotransferase measurement without P-5'-P (enzymatic activiOrdered By: Leah Huang on 65-89-0853BOO No additional P-5'-P [Catalytic activity/Vol]35 U/D11-49AnppncxoiRegency Hospital Toledoerum or plasma albumin/globulin mass ratioOrdered By: Leah Huang on 02-66-6991Kfydasq/Globulin [Mass ratio]0.5 {ratio}[facility] Toledoerum or plasma alkaline phosphatase measurement (enzymatic activity/volume)Ordered By: Leah Huang on 91-51-6178QOT [Catalytic activity/Vol]120 U/Z75-10VadovoeixRegency Hospital Toledoerum or plasma aspartate aminotransferase measurement (enzymatic activity/volume)Ordered By: Leah Huang on 29-11-9360WMV [Catalytic activity/Vol]36 U/S19-82MsszndxmfRegency Hospital Toledoerum or plasma total bilirubin measurement (mass/volume) Ordered By: Leah Huang on 70-33-2141Imheepmib [Mass/Vol]1.0 mg/dL0.3-1.2 [facility] Toledoquamous epithelial cells detection in urine sediment by light microscopyOrdered By: Sarah Osuna on 71-70-6311Xekkduvqww cells.squamous LM Ql (Urine sed)None seen [HPF]0-2FMorrow County HospitalUrea nitrogen [Mass/volume] in UrineOrdered By: Leah Huang on 03-14-2022 Urea nitrogen (U) [Mass/Vol]454 mg/dLNot Estab.[facility] Comment on above:Performed at: - [facility] [id number] [employer] Changer: Genaro Becerril PhD, Phone: [phone] appearanceOrdered By: Sarah Osuna on 59-65-1530Avvicuwwlb (U)ClearClearFMorrow County HospitalUrine bacteria detection by automated methodOrdered By: Sarah Osuna on 41-88-2439Nwzggdhw Auto Ql (U)None seenNone SeenCleveland Clinic Akron GeneralUrine colorOrdered By: Sarah Osuna on 74-71-2129Hddxf (U)YellowYellow [facility] GeneralUrine glucose measurement by automated test strip (mass/volume)Ordered By: Sarah Osuna on 59-41-4500Wrbmplr Auto test strip (U) [Mass/Vol]>=1000 mg/dLCleveland Clinic Union HospitalUrine hemoglobin detection by automated test stripOrdered By: Sarah Osuna on 98-96-7943Jupejhzqfq Auto test strip Ql (U)2+NegativeCleveland Clinic Akron GeneralUrine leukocyte esterase detection by automated test stripOrdered By: Sarah Osuna on 73-70-7433Tisinrsnu esterase Auto test strip Ql (U)NegativeNegative [facility] GeneralUrine nitrite detection by automated test strip Ordered By: Sarah Osuna on 97-26-2800Nzdqkrv Auto test strip Ql (U)Negative NegativeCleveland Clinic Akron GeneralUrine protein/creatinine ratioOrdered By: Sarah Osuna on 64-29-9376Inypxbe/Creatinine (U) [Ratio]169 mg/g{Cre}0-200 [facility] GeneralUrine sodium measurement (moles/volume)Ordered By: Leah Huang on 27-21-3328Sevlng (U) [Moles/Vol]20 mmol/LFMorrow County HospitalComment on above:No reference range establishedUrobilinogen Auto test strip (U) [Mass/Vol]Ordered By: Sarah Osuna on 73-91-4450Igbdfojnoiaq (U) [Mass/Vol]Normal mg/dLCleveland Clinic Union HospitalYeast detection in urine sediment by light microscopyOrdered By: Sarah Osuna on 64-36-3859Gfqvy LM Ql (Urine sed)Budding yeast [HPF]None SeenCleveland Clinic [facility] General Comment on above:1+ BUDDING YEASTpH Auto test strip (U)Ordered By: Sarah Osuna on 34-33-3295gC (U)1.020 [pH]1.001-1.030[facility] GeneralpH (U) 5.5 [pH]5.0-9.0[facility] GeneralPOINT OF CARE GLUCOSEon 33-03-0083Opklcxv [Mass/Vol]161 mg/dLCritically libx38-005RbkMarietta Memorial Hospital Comment on above:Performed By: #### TSH, BMP #### [facility] [address] [place] [address] Dr. Ladan DiehlPOINT CARE GLUCOSEon 53-22-6750Mrtydjd [Mass/Vol]358 mg/dL Critically rlbq46-873QaeMarietta Memorial HospitalComment on above:Performed By: #### A1C #### [facility] [address] [address] [address] Ladan DiehlGlucose [Mass/Vol]279 mg/dLCritically koba36-447UkiMarietta Memorial HospitalComment on above:Performed By: #### A1C #### [facility] [address] [place] [address] Dr. Ladan DiehlGlucose [Mass/Vol]247 mg/dLCritically ienu92-523LpuMarietta Memorial HospitalComment on above:Performed By: #### TSH, BMP #### [facility] [address] [address] [address] Ladan DiehlGlucose [Mass/Vol]357 mg/dLCritically yjcy92-565GadMarietta Memorial HospitalComment on above:Performed By: #### A1C #### [facility] [address] [place] [address] Dr. Ladan DiehlPROF CHEM 8 (BAS METB)on 39-54-1026Cuphp gap [Moles/Vol]11.1 mmol/LNormalMarietta Memorial HospitalComment on above:Performed By: #### TSH, BMP #### [facility] [address] [address] [address] Ladan DiehlCalcium [Mass/Vol]8.8 mg/dLNormal8.5-10.1[facility] Comment on above:Performed By: #### TSH, BMP #### [facility] [address] [address] [address] Ladan DiehlChloride [Moles/Vol]99 mmol/EPrgkvo17-752Exh [facility] Comment on above:Performed By: #### TSH, BMP #### [facility] [address] [place] [address] Dr. Ladan DiehlCO2 [Moles/Vol]27.2 mmol/HEltmgo47.0-32.0The [facility] Comment on above:Performed By: #### TSH, BMP #### [facility] [address] [place] [address] Dr. Ladan DiehlCreatinine [Mass/Vol]1.59 mg/dLCritically high0.70-1.30The [facility] CenterComment on above:Performed By: #### TSH, BMP #### [facility] [address] [place] [address] Dr. Pickering ChangEGFR-AF CJIVWGEG99 mL/min/1.79g8Wlmmmznqef low>=60The [facility] CenterComment on above:Performed By: #### TSH, BMP #### [facility] [address] [place] [address] Dr. Ladan JosephGFR-NON AF SENIYRZA32 mL/min/1.26n0Axuhofawge low>=60The [facility] CenterComment on above:Performed By: #### TSH, BMP #### [facility] [address] [place] [address] Dr. Ladan DiehlGlucose [Mass/Vol]284 mg/dLCritically dzla19-955Cqk [facility] CenterComment on above:Performed By: #### TSH, BMP #### [facility] [address] [place] [address] Dr. Ladan DiehlPotassium [Moles/Vol]4.2 mmol/LNormal3.5-5.1The [facility] Comment on above:Performed By: #### TSH, BMP #### [facility] [address] [address] [address] Ladan DiehlSodium [Moles/Vol]133 mmol/LCritically tzn474-307Slk [facility] CenterComment on above:Performed By: #### TSH, BMP #### [facility] [address] [address] [address] Ladan DiehlUrea nitrogen [Mass/Vol]22.0 mg/dLCritically high7.0-18.0The [facility] CenterComment on above:Performed By: #### TSH, BMP #### [facility] [address] [place] [address] Dr. Ladan Wilson nitrogen/Creatinine [Mass ratio]13.8 mg/mgNormalThe [facility] CenterComasc[facility] on above:Performed By: #### TSH, BMP #### [facility] [address] [place] [address] Dr. Ladan Dominguez, HIGH SENSITIVITYon 33-94-5723IFWLYX46.7 pg/mLNormal 4.0-76.1The [facility] on above:Result Comment: CUT-OFF POINTS HAVE BEEN ESTABLISHED BASED ON THE FOURTH UNIVERSAL DEFINITIONS OF MYOCARDIAL INFARCTION. THE UPPER REFERENCE LIMIT (URL) OF TROPONIN, DEFINED THE 99TH PERCENTILE OF cTnI DISTRIBUTION IN A REFERENCE POPULATION, HAS BEEN CONFIRMED THE DECISION THRESHOLD FOR CA DIAGNOSIS.Performed By: #### HSTROPN #### [facility] [address] [place] [address] Dr. Ladan Quiles 80-07-3761LKC3.381 uIU/mLNormal0.358-3.740The [facility] on above:Performed By: #### TSH, BMP #### [facility] [address] [place] [address] Dr. Ladan Carpenter LIT DOP LEG BILon 33-98-5163UN LIT DOP LEG BILEXAMINATION: US LIT DOP [...] Electronically authenticated by: CAROL YIP Date: 2022-01-24 09:[address] [place], [place] [address]BNPon 24-33-4798Fihhptabqgm peptide B (Bld) [Mass/Vol]262.0 pg/mLNormal<=900.0The [facility] CenterComment on above:Performed By: #### A1C #### [facility] [address] [place] [address] Dr. Ladan Barragan AUTO DIFFon 97-73-8587ACTW #0.1 103/ulNormal0.0-0.1The [facility] CenterComment on above:Performed By: #### TSH, BMP #### [facility] [address] [place] [address] Dr. Ladan Freedmansophils/100 WBC (Bld)0.8 %Normal0.2-2.0[facility] Comment on above:Performed By: #### TSH, BMP #### [facility] [address] [place] [address] Dr. Ladan Schmidt #0.3 103/ulNormal0.0-0.7The [facility] CenterComment on above: Performed By: #### TSH, BMP #### [facility] [address] [place] [address] Dr. Ladan Josephosinophils/100 WBC (Bld)4.4 %Normal0.9-7.0The [facility] Comment on above:Performed By: #### TSH, BMP #### [facility] [address] [place] [address] Dr. Ladan Josephrythrocyte distribution width (RBC) [Ratio]14.0 %Iwrzjp61.0-15.0 The [facility] CenterComment on above:Performed By: #### TSH, BMP #### [facility] [address] [place] [address] Dr. Yilan ChangHematocrit (Bld) [Volume fraction]38.3 %Critically low42.0-54.0 The [facility] CenterComment on above:Performed By: #### TSH, BMP #### [facility] [address] [place] [address] Dr. Ladan DiehlHemoglobin (Bld) [Mass/Vol]12.0 g/dLCritically low14.0-18.0The [facility] CenterComment on above:Performed By: #### TSH, BMP #### [facility] [address] [place] [address] Dr. Ladan Partida #0.03 10e3/ulNormal0.00-0.03The [facility] CenterComment on above:Performed By: #### TSH, BMP #### [facility] [address] [place] [address] Dr. Ladan Partida %0.5 %Normal0.0-0.5The [facility] CenterComment on above: Performed By: #### TSH, BMP #### [facility] [address] [place] [address] Dr. Ladan Moser #1.2 103/ulNormal1.2-3.8The [facility] CenterComment on above:Performed By: #### TSH, BMP #### [facility] [address] [place] [address] Dr. Ladan Rogershocytes/100 WBC (Bld)20.2 %Critically low20.5-60.0The [facility] CenterComasc[facility] on above:Performed By: #### TSH, BMP #### [facility] [address] [place] [address] Dr. Ladan DiehlMANUAL DIFF REQNONormalThe [facility] CenterComment on above: Performed By: #### TSH, BMP #### [facility] [address] [place] [address] Dr. Ladan Castillo (RBC) [Entitic mass]29.6 djNuvnzl56.9-34.0The [facility] CenterComment on above:Performed By: #### TSH, BMP #### [facility] [address] [address] [address] Ladan GibbsHC (RBC) [Mass/Vol]31.3 g/uNLgjgkq34.9-35.2The [facility] CenterComment on above:Performed By: #### TSH, BMP #### [facility] [address] [place] [address] Dr. Ladan Gibbs (RBC) [Entitic vol]94.6 fLCritically high80.0-94.0The [facility] HospitalComment on above:Performed By: #### TSH, BMP #### [facility] [address] [place] [address] Dr. Ladan Barone #0.7 103/ulNormal0.3-0.8The [facility] CenterComment on above:Performed By: #### TSH, BMP #### [facility] [address] [place] [address] Dr. Ladan Stanleyocytes/100 WBC (Bld)10.7 %Normal1.7-12.0The [facility] Comment on above:Performed By: #### TSH, BMP #### [facility] [address] [place] [address] Dr. Ladan Shrestha #3.9 103/ulNormal1.4-6.5The [facility] CenterComment on above:Performed By: #### TSH, BMP #### [facility] [address] [place] [address] Dr. Ladan Humphreyutrophils/100 WBC (Bld)63.4 %Oykrup97.0-75.0The [facility] CenterComment on above:Performed By: #### TSH, BMP #### [facility] [address] [place] [address] Dr. Ladan Tejadalet mean volume (Bld) [Entitic vol]10.0 fLNormal9.5-13.5The [facility] CenterComment on above:Performed By: #### TSH, BMP #### [facility] [address] [place] [address] Dr. Ladan DiehlPLT171 103/vbHgpoug495-635Xxf [facility] CenterComment on above: Performed By: #### TSH, BMP #### [facility] [address], [place] [address] Dr. Ladan DiehlRBC4.05 106/ulCritically low4.70-6.10The [facility] CenterComasc[facility] on above:Performed By: #### TSH, BMP #### [facility] [address], [place] [address] Dr. Pickering ChangWBC6.1 103/ulNormal4.0-11.0The [facility] CenterComasc[facility] on above: Performed By: #### TSH, BMP #### [facility] [address] [address] [address] Ladan Harrison CHEST WO W CONon 85-04-1336VKH CHEST WO W CONEXAM: CTA chest. CLINICAL [...] Electronically authenticated by: XIN BUI Date: 2022-01-23 19:35NoAdams County Regional Medical CenterCovid-19 PCR (CVDTB)on 51-19-0239VNCD-CoV-2 (COVID-19) RNA MANJIT+probe Ql (Unsp spec)Not detectedNormalNOT DETECTEDThe [facility] Comment on above:Result Comment: When [...] for this test is supported by the [place] of Health and Human Service's declaration that [...] longer be used).Performed By: #### A1C #### [facility] [address] [place] [address] Dr. Ladan DiehlLACTATE/LACTIC ACIDon [id number] [Moles/Vol]1.6 mmol/L Normal0.4-1.9The [facility] CenterComment on above:Performed By: #### LACT #### [facility] [address] [place] [address] Dr. Ladan DiehlPROF 14(COMP METB)on 60-47-4279Rcyefbq [Mass/Vol]2.7 g/dL Critically low3.4-5.0The [facility] CenterComment on above:Performed By: #### A1C #### [facility] [address] [place] [address] Dr. Ladan DiehlAlbumin/Globulin [Mass ratio]0.5 {ratio}NormalThe [facility] on above:Performed By: #### A1C #### [facility] [address] [place] [address] Dr. Ladan DiehlALP [Catalytic activity/Vol]120 U/LCritically riwo89-228Rnj [facility] HospitalComment on above:Performed By: #### A1C #### [facility] [address] [address] [address] Ladan Gregg [Catalytic activity/Vol]23 U/LAmwavk15-22Uav [facility] CenterComment on above:Performed By: #### A1C #### [facility] [address] [address] [address] Ladan DiehlAnion gap [Moles/Vol]10.3 mmol/LNormalThe [facility] Comment on above:Performed By: #### A1C #### [facility] [address] [address] [address] Ladan DiehlAST [Catalytic activity/Vol]29 U/TKmgjin45-08Vov [facility] CenterComment on above:Performed By: #### A1C #### [facility] [address] [address] [address] Ladan DiehlBilirubin [Mass/Vol]1.0 mg/dLNormal0.2-1.0The [facility] Comment on above:Performed By: #### A1C #### [facility] [address] [address] [address] Ladan DiehlCalcium [Mass/Vol]8.8 mg/dLNormal8.5-10.1The [facility] Comment on above:Performed By: #### A1C #### [facility] [address] [address] [address] Ladan DiehlChloride [Moles/Vol]101 mmol/EXzvpdj51-726Nzu [facility] Comment on above:Performed By: #### A1C #### [facility] [address] [address] [address] Ladan DiehlCO2 [Moles/Vol]30.8 mmol/PYjdcbv45.0-32.0The [facility] Comment on above:Performed By: #### A1C #### [facility] [address] [address] [address] Ladan DiehlCreatinine [Mass/Vol]1.40 mg/dLCritically high0.70-1.30The [facility] HospitalComment on above:Performed By: #### A1C #### [facility] [address] [address] [address] Ladan JosephGFR-AF MONTENEGRIN>60Normal>=60The [facility] CenterComment on above:Performed By: #### A1C #### [facility] [address] [address] [address] Ladan JosephGFR-NON AF SWWGVYAO14 mL/min/1.29l3Hqsfbqstht low>=60The [facility] CenterComment on above:Performed By: #### A1C #### [facility] [address] [address] [address] Ladan DiehlGlobulin (S) [Mass/Vol]5.3 g/dLNormalThe [facility] CenterComment on above:Performed By: #### A1C #### [facility] [address] [address] [address] Ladan DiehlGlucose [Mass/Vol]125 mg/dLCritically krjl61-328O[facility] CenterComment on above:Performed By: #### A1C #### [facility] [address] [address] [address] Ladan DiehlPotassium [Moles/Vol]4.1 mmol/LNormal3.5-5.1The [facility] Comment on above:Performed By: #### A1C #### [facility] [address] [address] [address] Ladan DiehlProtein [Mass/Vol]8.0 g/dLNormal6.4-8.2The [facility] Comment on above:Performed By: #### A1C #### [facility] [address] [address] [address] Ladan DiehlSodium [Moles/Vol]138 mmol/XRrokzh402-039Zxn [facility] Comment on above:Performed By: #### A1C #### [facility] [address] [address] [address] Ladan DiehlUrea nitrogen [Mass/Vol]20.0 mg/dLCritically high7.0-18.0The [facility] CenterComment on above:Performed By: #### A1C #### [facility] [address] [place] [address] Dr. Ladan Wilson nitrogen/Creatinine [Mass ratio]14.3 mg/mgNoAdams County Regional Medical CenterComment on above:Performed By: #### A1C #### [facility] [address] [place] [address] Dr. Ladan DiehlPROTIMEon [id number] Coag (PPP) [Relative time]1.02 {INR} NormalThe [facility] CenterComment on above:Performed By: #### PT, PTT #### [facility] [address] [place] [address] Dr. Ladan Pires GUIDELINESSEE BELOWLima City HospitalComment on above:Result Comment: DESIRED INR: 2.0 - 3.0 CONDITIONS NOT LISTED BELOW 2.5 - 3.5 FOR PROSTHETIC HEART VALVE REPLACEMENT 2.5 - 3.5 RECURRENT THROMBOSIS Performed By: #### PT, PTT #### [facility] [address] [place] [address] Dr. Ladan DiehlPT Coag (PPP) [Time]11.0 sNormal9.0-11.6The [facility] Comment on above:Performed By: #### PT, PTT #### [facility] [address] [place] [address] Dr. Ladan Correia 25-70-2268xHBM Coag (Bld) [Time]27.6 kQqnevv18.3-36.2The [facility] CenterComment on above:Performed By: #### PT, PTT #### [facility] [address] [place] [address] Dr. Ladan Dominguez, HIGH SENSITIVITYon 38-02-8381QLONDB54.4 pg/mLNormal 4.0-76.1The [facility] on above:Result Comment: CUT-OFF POINTS HAVE BEEN ESTABLISHED BASED ON THE FOURTH UNIVERSAL DEFINITIONS OF MYOCARDIAL INFARCTION. THE UPPER REFERENCE LIMIT (URL) OF TROPONIN, DEFINED THE 99TH PERCENTILE OF cTnI DISTRIBUTION IN A REFERENCE POPULATION, HAS BEEN CONFIRMED THE DECISION THRESHOLD FOR CA DIAGNOSIS.Performed By: #### A1C #### [facility] [address] [address] [address] Ladan DiehlCT ABD/PELV W CONon [id number] ABD/PELV W CONEXAMINATION: CT ABD/PELV W CON [...] Electronically authenticated by: TANNER PEDRAZA Date: 2022-01-18 23:39NoAdams County Regional Medical CenterXR CHEST 1 Von [id number] CHEST 1 VEXAM: Chest x-ray HISTORY: . COUGH . COMPARISON: None. TECHNIQUE: AP portable upright view of the chest FINDINGS: Film is underpenetrated. Heart and vascularity are unremarkable. Lungs are free of focal infiltrates. EKG leads overlie the chest. IMPRESSION: 1. Underpenetrated chest. 2. No acute heart or lung disease identified. Electronically authenticated by: ROSELIA RIVERA Date: 2022-01-18 22:16NoAdams County Regional Medical CenterXR KNEE LT 4V or >on [id number] KNEE LT 4V or >EXAM: XR KNEE LT 4V or > HISTORY: Pain COMPARISON: None. TECHNIQUE: 4 views of the left knee FINDINGS: No acute fracture is seen. Joint alignment is normal. Joint spaces are preserved. Soft tissues are unremarkable. No significant joint effusion is seen. IMPRESSION: No acute fracture or malalignment. Electronically authenticated by: JENNIFER CASTILLO Date: 2022-01-18 23:06No[facility] AUTO DIFFon [id number] #0.1 103/ulNormal0.0-0.1The [facility] CenterComment on above:Performed By: #### CBC #### [facility] [address] [address] [address] Ladan DiehlBasophils/100 WBC (Bld)0.8 %Normal0.2-2.0The [facility] Comment on above:Performed By: #### CBC #### [facility] [address] [address] [address] Ladan Schmidt #0.4 103/ulNormal0.0-0.7The [facility] CenterComment on above: Performed By: #### CBC #### [facility] [address] [address] [address] Ladan Josephosinophils/100 WBC (Bld)4.3 %Normal0.9-7.0The [facility] Comment on above:Performed By: #### CBC #### [facility] [address] [place] [address] Dr. Ladan Josephrythrocyte distribution width (RBC) [Ratio]14.4 %Laicrl00.0-15.0 The [facility] CenterComment on above:Performed By: #### CBC #### [facility] [address] [place] [address] Dr. Ladan DiehlHematocrit (Bld) [Volume fraction]37.2 %Critically low42.0-54.0 The [facility] CenterComment on above:Performed By: #### CBC #### [facility] [address] [place] [address] Dr. Ladan DiehlHemoglobin (Bld) [Mass/Vol]11.9 g/dLCritically low14.0-18.0The [facility] CenterComment on above:Performed By: #### CBC #### [facility] [address] [address] [address] Ladan Partida #0.04 10e3/ulCritically high0.00-0.03The [facility] Comment on above:Performed By: #### CBC #### [facility] [address] [place] [address] Dr. Ladan Partida %0.5 %Normal0.0-0.5The [facility] CenterComment on above: Performed By: #### CBC #### [facility] [address] [place] [address] Dr. Ladan Moser #2.2 103/ulNormal1.2-3.8The [facility] CenterComment on above:Performed By: #### CBC #### [facility] [address] [place] [address] Dr. Ladan Rogershocytes/100 WBC (Bld)26.2 %Jrxugi95.5-60.0The [facility] CenterComment on above:Performed By: #### CBC #### [facility] [address] [place] [address] Dr. Ladan BergerUAL DIFF REQNONormalThe [facility] CenterComment on above: Performed By: #### CBC #### [facility] [address] [place] [address] Dr. Ladan Castillo (RBC) [Entitic mass]30.4 lzOwizmp60.9-34.0The [facility] CenterComment on above:Performed By: #### CBC #### [facility] [address] [place] [address] Dr. Ladan Gibbs (RBC) [Mass/Vol]32.0 g/bURbilqv88.9-35.2The [facility] CenterComment on above:Performed By: #### CBC #### [facility] [address] [place] [address] Dr. Ladan Gibbs (RBC) [Entitic vol]94.9 fLCritically high80.0-94.0The [facility] CenterComment on above:Performed By: #### CBC #### [facility] [address] [address] [address] Ladan Barone #0.9 103/ulCritically high0.3-0.8The [facility] Comment on above:Performed By: #### CBC #### [facility] [address] [address] [address] Ladan Stanleyocytes/100 WBC (Bld)10.3 %Normal1.7-12.0The [facility] Comment on above:Performed By: #### CBC #### [facility] [address] [place] [address] Dr. Ladan Shrestha #5.0 103/ulNormal1.4-6.5The [facility] CenterComment on above:Performed By: #### CBC #### [facility] [address] [place] [address] Dr. Ladan Humphreyutrophils/100 WBC (Bld)57.9 %Ldffmu64.0-75.0The [facility] CenterComment on above:Performed By: #### CBC #### [facility] [address] [place] [address] Dr. Ladan Tejadalet mean volume (Bld) [Entitic vol]9.9 fLNormal9.5-13.5The [facility] CenterComment on above:Performed By: #### CBC #### [facility] [address] [place] [address] Dr. Ladan DiehlPLT180 103/krFzgeto006-629Fgx [facility] CenterComment on above: Performed By: #### CBC #### [facility] [address] [place] [address] Dr. Ladan DiehlRBC3.92 106/ulCritically low4.70-6.10The [facility] CenterComment on above:Performed By: #### CBC #### [facility] [address] [place] [address] Dr. Ladan DiehlWBC8.6 103/ulNormal4.0-11.0The [facility] CenterComment on above: Performed By: #### CBC #### [facility] [address] [place] [address] Dr. Ladan SinhaF 14(COMP METB)on 27-11-9623Shyxtbi [Mass/Vol]2.6 g/dL Critically low3.4-5.0The [facility] CenterComment on above:Performed By: #### CMP #### [facility] [address] [place] [address] Dr. Ladan DiehlAlbumin/Globulin [Mass ratio]0.5 {ratio}NormalThe [facility] CenterComment on above:Performed By: #### CMP #### [facility] [address] [place] [address] Dr. Ladan MontañoP [Catalytic activity/Vol]184 U/LCritically lkzy84-128Owu [facility] CenterComment on above:Performed By: #### CMP #### [facility] [address] [place] [address] Dr. Ladan MontañoT [Catalytic activity/Vol]24 U/IMqpvep81-56Yqz [facility] CenterComment on above:Performed By: #### CMP #### [facility] [address] [place] [address] Dr. Ladan Sexton gap [Moles/Vol]10.1 mmol/LNormalThe [facility] Comment on above:Performed By: #### CMP #### [facility] [address] [place] [address] Dr. Ladan DiehlAST [Catalytic activity/Vol]22 U/ZKjvvak31-20Zil [facility] CenterComment on above:Performed By: #### CMP #### [facility] [address] [place] [address] Dr. Ladan DiehlBilirubin [Mass/Vol]0.5 mg/dLNormal0.2-1.0The [facility] Comment on above:Performed By: #### CMP #### [facility] [address] [place] [address] Dr. Ladan DiehlCalcium [Mass/Vol]8.6 mg/dLNormal8.5-10.1[facility] Comment on above:Performed By: #### CMP #### [facility] [address] [address] [address] Ladan DiehlChloride [Moles/Vol]101 mmol/VTkuwla02-341Lec [facility] Comment on above:Performed By: #### CMP #### [facility] [address] [address] [address] Ladan DiehlCO2 [Moles/Vol]30.9 mmol/YDtsmmf82.0-32.0The [facility] Comment on above:Performed By: #### CMP #### [facility] [address] [address] [address] Ladan DiehlCreatinine [Mass/Vol]1.72 mg/dLCritically high0.70-1.30The [facility] CenterComment on above:Performed By: #### CMP #### [facility] [address] [address] [address] Pickering ChangEGFR-AF FXRIPKZQ09 mL/min/1.35d8Alcsgdwafz low>=60The [facility] CenterComment on above:Performed By: #### CMP #### [facility] [address] [address] [address] Ladan JosephGFR-NON AF ZHDIXWFN66 mL/min/1.88k0Edmupewqcl low>=60The [facility] CenterComment on above:Performed By: #### CMP #### [facility] [address] [address] [address] Ladan DiehlGlobulin (S) [Mass/Vol]5.2 g/dLNormalThe [facility] CenterComment on above:Performed By: #### CMP #### [facility] [address] [address] [address] Ladan DiehlGlucose [Mass/Vol]253 mg/dLCritically tosh40-362Xkq [facility] CenterComment on above:Performed By: #### CMP #### [facility] [address] [address] [address] Ladan DiehlPotassium [Moles/Vol]4.0 mmol/LNormal3.5-5.1The [facility] Comment on above:Performed By: #### CMP #### [facility] [address] [address] [address] Ladan DiehlProtein [Mass/Vol]7.8 g/dLNormal6.4-8.2The [facility] Comment on above:Performed By: #### CMP #### [facility] [address] [address] [address] Ladan DiehlSodium [Moles/Vol]138 mmol/HQbhcdp738-831Vmg [facility] Comment on above:Performed By: #### CMP #### [facility] [address] [address] [address] Ladan DiehlUrea nitrogen [Mass/Vol]30.0 mg/dLCritically high7.0-18.0The [facility] CenterComment on above:Performed By: #### CMP #### [facility] [address] [address] [address] Ladan Wilson nitrogen/Creatinine [Mass ratio]17.4 mg/mgNormalThe [facility] CenterComment on above:Performed By: #### CMP #### [facility] [address] [address] [address] Ladan Diehl Vital Signs Date TimeVital SignValuePerforming JagjjtmbyXzkjmokc79-21-8244 11:00-0400Body qsnpxvrscle75.3 [degF]Arline Lazar MEDICAL EDUCATION MANAGER-C Work Phone: [phone]10-17-2025 11:00-0400 Diastolic blood rqratsfi91 mm[Hg]Arline Lazar MEDICAL EDUCATION MANAGER-C Work Phone: [phone])[address]10-17-2025 11:00-0400 Heart rate78 /Nicolás Lazar MEDICAL EDUCATION MANAGER-C Work Phone: [phone])08165 [address]10-17-2025 11:00-0400 Respiratory rate18 /Nicolás Lazar MEDICAL EDUCATION MANAGER-C Work Phone: [phone])[address]10-17-2025 11:00-0400 SaO2% (BldA) [Mass fraction]97 %Arline Lazar MEDICAL EDUCATION MANAGER-C Work Phone: [phone]10-17-2025 11:00-0400 Systolic blood rcuwfboz899 mm[Hg]Arline Cady MEDICAL EDUCATION MANAGER-C Work Phone: [phone] [address]10-17-2025 09:34-0400 Body zqrsew016.8 cmPamela Cady MEDICAL EDUCATION MANAGER-C Work Phone: [phone])[address]10-13-2025 09:00-0400 Body gbzosd006.6 kgPamela Cady MEDICAL EDUCATION MANAGER-C Work Phone: [phone]10-06-2025 13:18-0400 Body yymojllajto12.5 [degF]Arline Cady MEDICAL EDUCATION MANAGER-C Work Phone: [phone] [place], [place] [address]10-06-2025 13:18-0400 Diastolic blood fdowbkhv50 mm[Hg]Arline Cady MEDICAL EDUCATION MANAGER-C Work Phone: [phone] [address]10-06-2025 13:18-0400 Heart rate90 /minPamela Cady MEDICAL EDUCATION MANAGER-C Work Phone: [phone] [place], [place] [address]7410-06-2025 13:18-0400 Respiratory rate20 /minPamela Cady MEDICAL EDUCATION MANAGER-C Work Phone: [phone] [place], [place] [address]7410-06-2025 13:18-0400 SaO2% (BldA) [Mass fraction]96 %Arline Cady MEDICAL EDUCATION MANAGER-C Work Phone: [phone]10-06-2025 13:18-0400 Systolic blood wnvwwonj097 mm[Hg]Arline Cady MEDICAL EDUCATION MANAGER-C Work Phone: [phone]10-06-2025 08:59-0400 Body bundsx241.8 cmPamela Cady MEDICAL EDUCATION MANAGER-C Work Phone: [phone]10-06-2025 08:59-0400 Body pekkgg130.14 kgPamela Cady MEDICAL EDUCATION MANAGER-C Work Phone: [phone])83165 [address]07-31-2025 16:14-0400 Body sqrqii693.8 cmSteven Rusher DPM Work Phone: [phone] [place], [place] [address]Zhdlmtvvji99-21-9576 16:14-0400Body mass index (BMI) [Ratio]47.35 kg/o9Ftbytu Rusher DPM Work Phone: [phone] [address]07-31-2025 16:14-0400Body qocnmq885.69 kgSteven Rusher DPM Work Phone: [phone]07-18-2025 13:05-0400Diastolic blood mm[Hg]Arline Cady MEDICAL EDUCATION MANAGER-C Work Phone: [phone] [place], [place] 2424507-18-2025 13:05-0400 Heart rate61 /minParhiannaa Cady MEDICAL EDUCATION MANAGER-C Work Phone: [phone] [place], [place] 2424507-18-2025 13:05-0400 Respiratory rate16 /minParhiannaa Cady MEDICAL EDUCATION MANAGER-C Work Phone: [phone] [place], [place] 8907407-18-2025 13:05-0400 SaO2% (BldA) [Mass fraction]95 %Arline Cady MEDICAL EDUCATION MANAGER-C Work Phone: [phone])[address] [place], [place] 8907407-18-2025 13:05-0400 Systolic blood wseukuso041 mm[Hg]Arline Cady MEDICAL EDUCATION MANAGER-C Work Phone: [phone](063)[address] [place], [place] 8907407-18-2025 11:42-0400 Body .8 cmPamela Cady MEDICAL EDUCATION MANAGER-C Work Phone: [phone]07-18-2025 11:42-0400 Body .61 kgPamela Cady MEDICAL EDUCATION MANAGER-C Work Phone: [phone]07-08-2025 13:00-0400 Body nqtpae878.8 cmSteven Rusher DPM Work Phone: [phone]07-08-2025 13:00-0400Body mass index (BMI) [Ratio]47.35 kg/r2Tlwiov Rusher DPM Work Phone: [phone])[address]07-08-2025 13:00-0400Body cxjuzs240.69 kgSteven Rusher DPM Work Phone: 1(158)361-[address] [place], [place] [address]Wfwotraypj06-59-7275 11:010400Body rootio681.8 cmSteven Rusher DPM Work Phone: [phone] [place], [place] 427[address]06-11-2025 11:01-0400Body mass index (BMI) [Ratio]47.35 kg/k9Kzhxbh Rusher DPM Work Phone: [phone]06-11-2025 11:010400Body fumgtm325.69 kgSteven Rusher DPM Work Phone: [phone] [place], [place] 4271805-09-2025 13:43-0400Body nuqszj861.72 cmPamela Cady MEDICAL EDUCATION MANAGER-C Work Phone: [phone]05-09-2025 13:43-0400 Body buytyp839.8 kgPamela Cady MEDICAL EDUCATION MANAGER-C Work Phone: [phone]05-09-2025 13:43-0400 Diastolic blood chnlhnoz92 mm[Hg]Arline Cady MEDICAL EDUCATION MANAGER-C Work Phone: [phone]05-09-2025 13:43-0400 Heart rate70 /minPamela Cady MEDICAL EDUCATION MANAGER-C Work Phone: [phone]05-09-2025 13:43-0400 Respiratory rate20 /minPamela Cady MEDICAL EDUCATION MANAGER-C Work Phone: [phone]05-09-2025 13:43-0400 SaO2% (BldA) [Mass fraction]97 %Arline Cady MEDICAL EDUCATION MANAGER-C Work Phone: [phone]05-09-2025 13:43-0400 Systolic blood adducfvq212 mm[Hg]Arline Cady MEDICAL EDUCATION MANAGER-C Work Phone: [phone]04-08-2025 11:24-0400 Diastolic blood qrzypzhy063 mm[Hg]Arline Cady MEDICAL EDUCATION MANAGER-C Work Phone: [phone]04-08-2025 11:24-0400 Heart rate64 /minArline Cady MEDICAL EDUCATION MANAGER-C Work Phone: [facility]04-08-2025 11:24-0400 Respiratory rate18 /minArline Cady MEDICAL EDUCATION MANAGER-C Work Phone: [facility]04-08-2025 11:24-0400 SaO2% (BldA) [Mass fraction]95 %Arline Cady MEDICAL EDUCATION MANAGER-C Work Phone: [facility]04-08-2025 11:24-0400 Systolic blood paznfzpn950 mm[Hg]Arline Cady MEDICAL EDUCATION MANAGER-C Work Phone: [facility]04-08-2025 11:18-0400 Body .8 cmPtrudy Cady MEDICAL EDUCATION MANAGER-C Work Phone: [facility]04-08-2025 11:18-0400 Body ckgxaq736.68 kgParhiannaa Cady MEDICAL EDUCATION MANAGER-C Work Phone: [facility]09-21-2022 06:00-0400 Diastolic blood azzfcieg58 mm[Hg]Et3 LmycnprvIotwaGzefzl03-45-7581 06:00-0400 Heart rate89 /minEt3 XysyvsgaHmkstDrzlvc73-79-2597 06:00-0400Respiratory rate20 /minEt3 DxjhkifjHlkjoIihzvx63-66-9329 06:00-1977MfE7% (BldA) [Mass fraction]91 % Et3 ResourceMetroHealthComment on above:2 L NC at trflraqb30-40-2729 06:00-0400 Systolic blood bjuaodqz77 mm[Hg]Et3 KczuxbfcYihriDuacpp55-78-7687 15:01-0400Body safunrjetyd36.3 [degF]MD Ayden Freeman Work Phone: [facility]09-02-2022 15:01-0400 Diastolic blood avsvpduo84 mm[Hg]MD Ayden Freeman Work Phone: [facility]09-02-2022 15:01-0400 Heart rate90 /minMD Ayden Freeman Work Phone: 1([phone] [place], [place] 7547409-02-2022 15:01-0400 Respiratory rate20 /minMD Ayden Freeman Work Phone: [phone]09-02-2022 15:01-0400 SaO2% (BldA) [Mass fraction]92 %MD Ayden Freeman Work Phone: [phone])35250 [address]09-02-2022 15:01-0400 Systolic blood hsiqizqj774 mm[Hg]MD Ayden Freeman Work Phone: [phone] [address]09-02-2022 10:48-0400 Body .8 cmMD Ayden Freeman Work Phone: 1(284)38850 [address]09-02-2022 10:48-0400 Body aedcwx442.22 kgMD Ayden Freeman Work Phone: [phone] [place], [place] 5602308-30-2022 12:00-0400 Diastolic blood yhvjyivy32 mm[Hg]MD Ayden Freeman Work Phone: 1(415)[address]08-30-2022 12:00-0400 Heart rate99 /minMD Ayden Freeman Work Phone: [phone])45950 [address]08-30-2022 12:00-0400 Inhaled oxygen flow rate2 L/minMD Ayden Freeman Work Phone: 1(057)56350 [address]08-30-2022 12:00-0400 Respiratory rate18 /minMD Ayden Freeman Work Phone: 1(563)62450 [address]08-30-2022 12:00-0400 SaO2% (BldA) [Mass fraction]98 %MD Ayden Freeman Work Phone: [phone])84650 [address]08-30-2022 12:00-0400 Systolic blood doatmxzu740 mm[Hg]MD Ayden Freeman Work Phone: [phone] [address]08-30-2022 05:22-0400 Body zmadok076 kgMD Ayden Freeman Work Phone: 1([phone])775-[address] [place], [place] 7547408-29-2022 20:00-0400 Inhaled oxygen yytlswgvmnnse50 %MD Ayden Freeman Work Phone: [phone] [address]08-29-2022 14:56-0400 Body mxzehu328.8 cmMD Ayden Freeman Work Phone: 1(796)[address] [place], [place] 2836008-29-2022 08:11-0400 Body hkozikyajgv02 [degF]MD Ayden Freeman Work Phone: [phone] [address]08-06-2022 11:59-0400 Diastolic blood lkrwgpwi65 mm[Hg]MD Ayden Freeman Work Phone: [phone]08-06-2022 11:59-0400 Heart rate95 /minMD Ayden Freeman Work Phone: [phone]08-06-2022 11:59-0400 Respiratory rate18 /minMD Ayden Freeman Work Phone: [phone]08-06-2022 11:59-0400 SaO2% (BldA) [Mass fraction]95 %MD Ayden Freeman Work Phone: [phone]08-06-2022 11:59-0400 Systolic blood fktyyspz344 mm[Hg]MD Ayden Freeman Work Phone: [phone] [place], [place] 7547408-06-2022 08:07-0400 Body boxqeskhcgl86.8 [degF]MD Ayden Freeman Work Phone: [phone])659[address]08-06-2022 06:00-0400 Body .5 kgMD Ayden Freeman Work Phone: [phone]08-04-2022 17:24-0400 Body sgfcte839.8 cmMD Ayden Freeman Work Phone: [phone]08-04-2022 16:00-0400 Inhaled oxygen flow rate1 L/minMD Ayden Freeman Work Phone: [facility] Encounters Encounter DateEncounter TypeCare ProviderFacilityStart: 28-47-8453Qvt-patient / Non-visitAdeyemi Yair J[facility]NSON-[facility] Med OutPt Work Phone: Start: 37-52-8703Xwe-patient / Non-visitLinda Joey [facility] Cardiology Work Phone: Start: 05-16-2025 End: 27-54-4104Xapagpouli and management of inpatientAbdarchie Garza MD[address] Work Phone: Start: 05-03-2025 End: 78-52-8258Izbkid flowsJermaine Lui DO Work Phone: noms [facility] EyeStart: 05-03-2025 End: 09-31-9388Rgcvol flowsJermaine Simmons Zahlxavier DO Work Phone: NOEH [facility] EyeStart: 05-03-2025 End: 16-98-6334lmprdgzbjdFYMUCMIS D ZAHLERNot AvailableComment on above:Retinal InjectionStart: 93-93-0714fzayidcwftTPHEMZ S CRAMERFacility: BellevueStart: 04-25-2025 End: 24-08-3899frxnklftllVawfgna A. MouchliFacility:DerejeIsmael DHStart: 04-25-2025 End: 38-84-9268Edygvss encounter procedureMochaitanya Stanton [phone]-HwhdqOhio [facility] Hospital [facility] Start: 03-25-2025 End: 04-20-9908ypqeadezpvRfxrxz Sue Cramer MEDICAL EDUCATION MANAGER-C Work Phone: [facility] Work Phone: Start: 03-25-2025 End: 56-68-6755Rnaxjjor ReferredArline Lazar TAILING MACHINE OPERATOR-LAB Path Spec Nery HospStart: 03-23-2025 End: 81-88-4599Czepra flowsheetJomerly Myershler DO Work Phone: noms [facility] EyeStart: 03-23-2025 End: 54-72-2152Nxqnha flowsheetJonatsilvestre Simmons Zahler DO Work Phone: noms [facility] EyeStart: 03-23-2025 End: 90-79-7215Jospiybe SupportJonatsilvestre Myershler DO Work Phone: noms [facility] EyeComment on above:Retinal InjectionStart: 03-10-2025 End: 36-49-8720Gsbfraj encounter procedureSteven A Rusher DPM Work Phone: noms [place] PodiatryComment on above:Diabetic polyneuropathy associated with type 2 diabetes mellitus (HCC) (Primary Dx); Type II diabetes mellitus with peripheral circulatory disorder (HCC); Encounter for long-term (current) use of insulin (HCC)Start: 03-10-2025 End: 09-00-8600sbuvxarbmyCMGHAB A RUSHERNot AvailableStart: 03-10-2025 End: 35-35-2858Zwunqv flowsheetSteven A Rusher DPM Work Phone: [facility] PodiatryStart: 03-10-2025 End: 34-83-5061Zcsxxm flowsheetSteven A Rusher DPM Work Phone: [facility]St[facility] PodiatryStart: 03-08-2025 End: 31-91-0772Lvnrlv flowsheetJonathan Iris Zahler DO Work Phone: noms [facility] EyeStart: 03-08-2025 End: 69-52-0664Lazkqi flowsheetJomerly Myershler DO Work Phone: noms [facility] EyeStart: 03-08-2025 End: 69-98-8817idfwrqmswhJAKTJNAU D ZAHLERNot AvailableStart: 03-08-2025 End: 34-16-8473Ihupuw outpatient new 45 minutesSylvia Lui DO Work Phone: noms [facility] EyeComment on above:Age-related nuclear cataract of both eyes (Primary Dx); 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); 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 associated with type 2 diabetes mellitus (HCC)Start: 02-25-2025 End: 89-74-8972Ifpzifnsp to same day surgery Negra Titus MD-ay [facility] Work Phone: Start: 02-25-2025 End: 15-95-3941pbwmzfphioRznpbuStoney MOSS Work Phone: [facility] Work Phone: Start: 02-15-2025 End: 39-90-1168Oajihn flowsheetSteven A Rusher DPM Work Phone: noms PODIATRYStart: 02-15-2025 End: 17-91-3283Nxyuso flowsheetSteven A Rusher DPM Work Phone: noms PODIATRYStart: 02-15-2025 End: 46-05-1597Fznukg follow up visit related to original pxSteven A Rusher DPM Work Phone: noms PODIATRYComment on above:Diabetic polyneuropathy associated with type 2 diabetes mellitus (HCC) (Primary Dx); Type II diabetes mellitus with peripheral circulatory disorder (HCC); Encounter for long-term (current) use of insulin ([facility])Start: 02-15-2025 End: 45-84-2167rpweqdijobEFPJSK A RUSHERNot AvailableStart: 01-19-2025 End: 23-73-9471Jdjlkz flowsheetSteven A Rusher DPM Work Phone: noms PODIATRYStart: 01-19-2025 End: 67-62-6901Trrfii flowsheetSteven A Rusher DPM Work Phone: noms PODIATRYStart: 01-19-2025 End: 82-64-8683Pjhoyo outpatient new 30 minutesStevashlyn Burns DPM Work Phone: NOPS PODIATRYComment on above:Dermatophytosis of nail (Primary Dx); Dystrophic nail; Diabetic polyneuropathy associated with type 2 diabetes mellitus ([facility]/HCC); Type II diabetes mellitus with peripheral circulatory disorder ([facility]/HCC); Encounter for long-term (current) use of insulin ([facility])Start: 01-19-2025 End: 44-32-7671pmnfibexssTJSXGC A RUSHERNot AvailableStart: 12-27-2024 End: 35-94-0253bngrghrnigYqjgha Sue Cramer MEDICAL EDUCATION MANAGER-C Work Phone: [facility] Work Phone: Start: 12-27-2024 End: 50-10-8593Uafdddrz [facility] CenterLottie Washington UX-F-Imxtoyv Center Main [place]Start: 12-17-2024 End: 41-85-3092Cbitptzi [facility] CenterJnmarietta memorial hospitalluisa [place] IO-U-Gwn-Surgical Testing Work Phone: Start: 12-17-2024 End: 01-14-8505Jhnqenx encounter procedurePamora Lazar MEDICAL EDUCATION MANAGER-C Work Phone: [facility] Rpc-Ncj-Ckxwwrig Testing Work Phone: Start: 12-17-2024 End: 78-64-5174uhbbmtaftcUmdvnk Sue Cramer MEDICAL EDUCATION MANAGER-C Work Phone: [facility] Ctr Work Phone: Start: 11-18-2024 End: 35-47-1537oaleoxtcrvYNVBTrinity Health System East Campustart: 11-16-2024 End: 79-66-4883Ludrgtj encounter procedurePamora Lazar MEDICAL EDUCATION MANAGER-C Work Phone: [facility] Ctr-MRI Main [place] Work Phone: Start: 11-16-2024 End: 86-45-3644qhfodqiquqTdrnwx Norah MOSS Work Phone: [facility]tr Work Phone: Start: 10-28-2024 End: 74-78-3631pnbrdbfsixUKUUWexner Medical Centertart: 10-28-2024 End: 45-55-4877Tdxohwwyj for other preprocedural examinationEHCleveland Clinic Akron Generaltart: 12-19-2022 End: 14-22-0239jxnzqjoentYL AYDEN Haney NADERERFacility:J4Bmdwa: 06-05-2022 End: 41-01-4138szpamhkelkXW AYDEN Haney NADERERFacility:J8Rwbpq: 05-29-2022 End: 43-17-2120ixctppthoySK AYDEN Haney NADERERFacility:S8Jylod: 05-17-2022 End: 63-77-8601arwjuondlaTH CAROL BLACKERFacility:Z2Sdnjr: 05-03-2022 ambulatoryUNKNOWN PROVIDERFacility:METROHealthStart: 05-01-2022 End: 04-33-1888rmhavlkniyTNETTIX PROVIDERFacility:METROHealthStart: 05-01-2022 End: 02-34-9411lwzpgacwjmMf9 ResourceMetroHealth Emergency Triage, Treat and TransportStart: 05-01-2022 End: 22-48-8409Fcfyletwq department patient visitEt3 ResourceMetroHealth Emergency Triage, Treat and TransportComment on above:ArrivedStart: 04-24-2022 End: 16-12-6855tzysxbqqpxKBAVLOC PROVIDERFacility:METROHealthStart: 04-12-2022 End: 88-41-4850Wddiddjii department patient visitMD Ayden Freeman Work Phone: [facility] Ctr-Emergency RoomStart: 04-10-2022 End: 39-22-4149mcactiwzaqZBZTFUC PROVIDERFacility:METROHealthStart: 04-02-2022 End: 17-96-5831Vwhugmpfcd and management of inpatientMD Ayden Freeman Work Phone: [facility] Ctr-[address] [place] Med SurgStart: 56-15-3494twnsywpaxcZS AYDEN Haney NADERERFacility:Z6Exyzc: 03-14-2022 End: 76-83-9630Dungvux encounter procedureJEFF CARLOS [phone]-QkuaeOhiohealth [facility] Medicine [place] Start: 03-14-2022 End: 74-30-5695Phtkicokgf and management of inpatientMD Ayden Freeman Work Phone: [facility] Ctr-[address] [place] Med SurgStart: 79-94-9886zjzmwsmuvdNG AYDEN Haney NADERERFacility:W5Nrebw: 02-01-2022 End: 58-36-6549xqmdolpdefKKFKO CHIKIS .Facility:U3Gjdxa: 01-24-2022 End: 99-85-2963tqlnkmyzltTB CAROL YIPFacility:T8Tnwmc: 01-18-2022 End: 09-19-9481qrqcrmxamqIZ MASON NEALFacility:H1 Procedures DateProcedureProcedure DetailPerforming ClinicianStart: 78-27-3326Wjdafznbcatr njx pharmacologic agt spxJonathan D Zahler DO Work Phone: Start: 01-62-4008Bkjlqhicupkc njx pharmacologic agt spxJonathan D Zahler DO Work Phone: Start: 75-73-8995Jhyaguflfcuz ophthalmic imaging retinaJonathan D Zahler DO Work Phone: Start: 89-13-4104Ikcpz Nicolle MOSS Work Phone: Start: 82-04-0138Itlpfvcnqmpi njx pharmacologic agt spxJonathan D Zahler DO Work Phone: Start: 13-57-5180Zupdupysiypb ophthalmic imaging retinaJonathan D Zahler DO Work Phone: Start: 58-41-5106Wrimugbvkqib axial tomography of lumbar spine with contrastArline Lazar MEDICAL EDUCATION MANAGER-C Work Phone: Start: 47-26-0306NyinguwwiYtmcbr Cramer MEDICAL EDUCATION MANAGER-C Work Phone: Start: 68-71-2212IFY screeningDR AYDEN LLOYDRComment on above:Performed By: #### PSASC #### [facility] [address] [place] [address] Dr. Pickering ChangStart: 80-81-4318Uuncr chest X-rayMD Ayden Freeman Work Phone: Start: 83-34-0505TW angiography of thoraxMD Ayden Freeman Work Phone: Start: 04-02-2022 End: 55-95-4823Qbkjl chest X-rayMD Ayden Freeman Work Phone: Start: 54-74-2633Scqur X-ray of left hipMD Ayden Freeman Work Phone: Start: 94-53-3560Mgmck X-ray of left elbowMD Ayden Freeman Work Phone: Start: 23-42-0212Haerx chest X-rayMD Ayden Freeman Work Phone: Blood culture for bacteria, including anaerobic screen MD Ayden Freeman Work Phone: Cardiac catheterizationMohamad Mouchli CholecystectomyMohamad Mouchli ColonoscopyMohamad Mouchli History of nasal sinus surgeryMohamad Mouchli Refusal of treatment by patientRefusal of treatmentEt3 ResourceSARS Antigen (LFIA)MD Ayden Freeman Work Phone: Plan of Treatment DateCare ActivityDetailAuthorStart: 06-06-2025 End: 13-20-0408Nieweyfc Xuqjfmr39/ 2:00 PM EDT Clinical Support [facility] [address] [place] [id number] Sylvia Lui, DO [address] [place] [address] [facility] EyeStart: 16-59-6252XvfdaojoiRegency Hospital Toledotart: 95-13-9293Hcbdxnsr to clinical allergistRegency Hospital Toledotart: 45-06-6575OatenikfkRegency Hospital Toledotart: 42-37-2735Mkscwygc admissionRegency Hospital Toledotart: 05-16-2025 [facility]otart: 05-03-2025 End: 58-80-1670Uqhgrzlf Lqczgld8805/03/2025 2:00 PM EDT Clinical Support [facility] [address] [facility] MED[facility] CENTERDonny [id number] Sylvia Lui, DO [address] [place] [address] ArrivedNOTallahatchie General Hospital EyeComment on above:Arrived Start: 04-21-2025 End: 40-08-4291Bvynjzu encounter procedureNOCOLUMBIA REGION[facility] PODIATRYStart: 04-05-2025 End: 68-48-9228Bzsityi encounter nnniiptel51/26/2025 3:15 PM EDT Office Visit [facility] [address] [place] [id number] Carol Burns DPM [address] [place] [address] [facility] PodiatryStart: 21-30-1812Guvci [facility] Centertart: 92-90-7124Gujplnyy identified in Urine by CultureUrine [facility] Hospitaltart: 03-11-2025 End: 39-73-5786Iqrcogrc Lgaojev7803/11/2025 10:45 AM EDT Clinical Support NOMS [facility] [address] [place] [phone] Sylvia Lui, DO [address] [place] [address] NOMS [facility] EyeStart: 03-10-2025 End: 83-07-8242Xvntmff encounter procedureNOSt. [facility] PodiatryComment on above: ArrivedStart: 03-01-2025 End: 12-64-2173Rzeaazn encounter mxjzmdgwi60/22/2025 1:30 PM EDT Office Visit [facility] [address] [place] [phone] Sylvia Lui, DO [address] [place] [address] NOMFREEMAN [facility]OSHO [facility] OPHTStart: 47-84-2114JtvkdkxjhRegency Hospital Toledotart: 01-19-2025 End: 95-94-3494Sksvwqk encounter vurvieebt60/11/2025 10:45 AM EDT Office Visit [facility] [address] [place] [phone] Carol Burns, DPM [address] [place] [address] ArrivedDAYTON GENERAL HOSPITAL PODIATRYComment on above:ArrivedStart: 58-07-5593UP CAT/MRI W/ IV SEDATION (Not Applicable)OR CAT/MRI W/ IV SEDATION (Not Applicable) [facility] Toledotart: 15-10-4406Frwfptko screeningDiabetes: Retinopathy ScreeningDELTA COMMUNITY [facility] HealthcareStart: 85-08-7814Ubjivrugb vaccination Influenza Vaccine (#1)MetroHealthStart: 50-48-9351Surmw chest X-rayXR chest 2V* [facility] Toledotart: 04-12-2022 End: 83-82-7151Eenqpvpfi department patient visitDeparted EmergencyOhiohealth Shelby Hospital-Emergency RoomStart: 07-26-2697QkilhsrkcOhiohealth Shelby Hospital Work Phone: Start: 03-48-7551MuqhwsezrOhiohealth Shelby Hospital Work Phone: Start: 04-02-2022 End: 35-36-0323Fluevayphh and management of inpatientAbrasion of elbowOhiohealth Shelby Hospital-[address] [place] Med SurgStart: 68-63-7647LR angiography of thoraxCT angio chest PE protocolAdena P[facility] Center CenterStart: 04-02-2022 Hospital admissionOhiohealth Shelby Hospital Work Phone: Start: 87-41-7477T-ray of left kneeXR knee LT 2V [facility] Toledotart: 53-41-6249Zqxia chest X-rayXR chest 1V portableRegency Hospital Toledotart: 60-11-5683Qsckj X-ray of left hipXR hip LT min 2V(w/wo pelvis)*[facility] Tol[facility]otart: 71-72-7030Rlaxz X-ray of left elbowXR elbow LT min 3V*[facility] CenterStart: 43-19-8000RmpchwhrpOhiohealth Shelby Hospital Work Phone: Start: 60-99-7678Vpxregfx to nephrologistOhiohealth Shelby Hospital Work Phone: Start: 16-12-9812Dmuwgplt admissionOhiohealth Shelby Hospital Work Phone: Start: 92-93-7166Xewpopx to Medicare Visit (G0402) Welcome to Medicare Visit (G0402)MetroHealthStart: 72-85-4359Ufapbdvpgbk of occult blood in single stool specimenFITMetroHealthStart: 50-85-9941Vdhlgqntj for malignant neoplasm of colonCRC ScreeningMetroHealthStart: 37-19-0978Umtzchew (RZV) Vaccine (1 of 2)Shingles (RZV) Vaccine (1 of 2)MetroHealthStart: 79-14-6079Ogwjr panelCholesterolMetroHealthStart: 47-34-4971Mjymp screening for proteinDiabetes: Urine Protein ScreeningNOCA HealthcareStart: 11-28-1975 Hepatitis C screeningHepatitis C AntibodyMetroHealthStart: 99-61-7765Rxlopdu + diphtheria + acellular pertussis vaccine (product)Tdap BoosterMetroHealthStart: 28-48-1412MCC screeningHIV TestMetroHealthStart: 08-63-9670OMAUY-19 Vaccine (#1) COVID-19 Vaccine (#1)MetroHealthStart: 33-89-1819Hsjqyhfion A1c measurement Diabetes: Hemoglobin J8IYNPE HealthcareStart: 04-19-1958Medicare Annual Wellness (AWV)Medicare Annual Wellness (AWV)[facility] HealthcareStart: 74-37-0254Vfsqaqgeu for malignant neoplasm of colonMetroHealthPatient EducationAdena Pike Medical Center Ctr Work Phone: Patient referralAdena Pike Medical Center Ctr Work Phone: [facility] Immunizations Immunization DateImmunizationNotesCare DqnxxelnAlgjpjwk54-48-1420yurbppgfm, high dose seasonal, preservative-freePamela Cady MEDICAL EDUCATION MANAGER-C Work Phone: [facility]10-02-2024influenza, high dose seasonal, preservative-freeSteven Rusher DPM Work Phone: [facility]ansonZbryfrodlu80-58-1811Ewvjmnnzk, Seasonal, Quadrivalent, AdjuvantedSteven Rusher DPM Work Phone: [facility]ansonJjzifyibvz69-34-1429Vglfqyiuwyqa Conjugate PCV 20 Carol Rusher DPM Work Phone: [facility]ansonItqwtjndam77-36-2148Wxbawoht, quadrivalent, recombinant, injectable influenza vaccine, preservative freeSteven Rusher DPM Work Phone: [facility] BransonWeqzctwvaz68-06-0829Raopnpdm, quadrivalent, recombinant, injectable influenza vaccine, preservative freeSteven Rusher DPM Work Phone: [facility] BransonZcbaqybxpa96-32-2576tmmmxgfoe, seasonal, injectable, preservative Eric Burns DPM Work Phone: [facility] Payers DatePayer CategoryPayerPolicy [id number] 2025Medicare (Managed Care)[employer] Member Subscriber Plan / Payer (Effective 2024-Present) Name: Evelin Patterson Relation to Subscriber: Self Name: Evelin Patterson Payer ID: Not on file Group ID: [id number] Type: Not on file Address: [place] [id number] 2022Medicare [id number] Health Insurance [id number] 2021Medicaid [id number] [id number] [id number] [id number] .16.840.1.065307.3.579.2.732 [id number] 2.16.840.1.817699.3.579.2.33106-95-1363Thlfxsf [id number] 2.16.840.1.068839.3.57[id number] 2.16.840.1.111546.3.57[id number] 2.16.840.1.270782.3.57[id number] 2.16.840.1.244282.3.57[id number] 2.16.840.1.026592.3.57[id number] 2.16.840.1.970113.3.57[id number] 2.16.840.1.307359.3.57[id number] 2.16.840.1.360658.3.57[id number] 2.16.840.1.212257.3.57[id number] 2.16.840.1.041782.3.579.2.13625-37-3897Vdqdwum3703699 2.16.840.1.543434.3.57[id number] 2.16.840.1.361238.3.57[id number] 2.16.840.1.644745.3.57[id number] 2..1.406626.3.57[id number] 2..1.461030.3.579.[id number] 2..1.666160.3.57[id number] 2..1.791534.3.57[id number] 2..1.532319.3.57[id number] 2..1.088[id number] [facility] [id number] Elite [id number] Care Center [id number] 2g2gr62l-8283-1035-[id number] 2..1.443937.3.579.2.488Rpmbshz75442043 2..1.121272.3.579.2.531 Azmgufu83405475 2..1.957484.3.579.2.872Ainjgql74145868 2..1.655417.3.579.2.052Aapckws02453586 2..1.902544.3.579.2.531 [id number] 2..1.589616.3.579.2.531 Social History DateTypeDetailFacilityTobacco smoking statusNo Smoking Status [facility]teredGal[facility] Start: 10-01-2023 End: 32-90-4451Tap Assigned At [facility] Start: 04-02-2022 End: 56-50-7761Efbtcwx smoking status NHISNever smoked tobacco (finding) [facility]otart: 42-55-9189Ivt Assigned At [facility] CampusTobacco smoking status NHISTobacco smoking consumption unknownMetroHealthStart: 16-04-7558Czt Assigned At BirthNot on file MetroHealthStart: 11-22-2009 End: 43-62-4471ZrcLsji (finding)[facility]otart: 09-14-2023 End: 69-20-7408Kpeowji use and exposureSmokeless tobacco non-userNOMS Healthcare Start: 10-01-2023 End: 67-35-4860Qtrkahvqk beverage intakeLifetime non-drinker (finding)[facility] HealthcareStart: 10-01-2023 End: 25-00-1624Iacoiju of Social functionNOMS HealthcareStart: 00-28-7197Acxjypd Commentcaffeine intake : more than 4 cups per dayNOCA HealthcareTobacco smoking statusOhio Valley Hospital Digestive [facility] NEGATED: Highlighted rowStart: NINFHistory of tobacco usePassive smokerNOCA Healthcare Medical Equipment Procedure CodeEquipment CodeEquipment Original TextEquipment IdentifierDates Lancets-Blood Glucose Strips (Gojji Lancet-Glucose Test Strp) 30 gauge Combo PackStart: 03-16-2022 End: 39-49-5819Qwz Needle, Diabetic (Pentips) 29 gauge x 1/2 NeedleStart: 03-16-2022 End: 47-50-2098Tmzkvkk-Blood Glucose Strips (Gojji Lancet-Glucose Test Strp) 30 gauge Combo PackStart: 03-16-2022 End: 41-90-4627Jxo Needle, Diabetic (Pentips) 29 gauge x 1/2 NeedleStart: 03-16-2022 End: 54-31-9221Nuabtni-Blood Glucose Strips (Gojji Lancet-Glucose Test Strp) 30 gauge Combo PackStart: 03-16-2022 End: 93-90-5565Obk Needle, Diabetic (Pentips) 29 gauge x 1/2 NeedleStart: 03-16-2022 End: 26-63-3847Dxyjvyt-Blood Glucose Strips (Gojji Lancet-Glucose Test Strp) 30 gauge Combo PackStart: 03-16-2022 End: 11-30-6497Obc Needle, Diabetic (Pentips) 29 gauge x 1/2 NeedleStart: 03-16-2022 End: 67-16-8260Woidwet-Blood Glucose Strips (Gojji Lancet-Glucose Test Strp) 30 gauge Combo PackStart: 03-16-2022 End: 09-12-6849Svm Needle, Diabetic (Pentips) 29 gauge x 1/2 NeedleStart: 03-16-2022 End: 17-72-6375Vusxach-Blood Glucose Strips (Gojji Lancet-Glucose Test Strp) 30 gauge Combo PackStart: 03-16-2022 End: 30-22-3762Yqc Needle, Diabetic (Pentips Pen Needle) 29 gauge x 1/2 Needle Start: 03-16-2022 End: 05-55-6938Hoysnkq-Blood Glucose Strips (Gojji Lancet-Glucose Test Strp) 30 gauge Combo PackStart: 03-16-2022 End: 31-16-7357Zmx Needle, Diabetic (Pentips Pen Needle) 29 gauge x 1/2 Needle Start: 03-16-2022 End: 48-59-0184HRS 1 EACH DAY HEJVGFQI80583747Uafnp: 82-22-1005Fmxcpyd-Blood Glucose Strips (Gojji Lancet-Glucose Test Strp) 30 gauge Combo PackStart: 03-16-2022 End: 10-68-5642Cgs Needle, Diabetic (Pentips Pen Needle) 29 gauge x 1/2 Needle Start: 03-16-2022 End: 18-10-8022Qjeodgh-Blood Glucose Strips (Gojji Lancet-Glucose Test Strp) 30 gauge Combo PackStart: 03-16-2022 End: 73-17-3398Gew Needle, Diabetic (Pentips Pen Needle) 29 gauge x 1/2 Needle Start: 03-16-2022 End: 83-21-5385Hvukant-Blood Glucose Strips (Gojji Lancet-Glucose Test Strp) 30 gauge Combo PackStart: 03-16-2022 End: 53-40-2095Ech Needle, Diabetic (Pentips Pen Needle) 29 gauge x 1/2 Needle Start: 03-16-2022 End: 15-97-3723Pacmwlr-Blood Glucose Strips (Gojji Lancet-Glucose Test Strp) 30 gauge Combo PackStart: 03-16-2022 End: 06-86-7177Wue Needle, Diabetic (Pentips Pen Needle) 29 gauge x 1/2 Needle Start: 03-16-2022 End: 75-70-5348Apnhtft-Blood Glucose Strips (Gojji Lancet-Glucose Test Strp) 30 gauge Combo PackStart: 03-16-2022 End: 74-27-2247Tux Needle, Diabetic (Pentips Pen Needle) 29 gauge x 1/2 Needle Start: 03-16-2022 End: 04-09-2022 Goals DatePatient GoalDesired Activity/State Functional Status Tdch[id number] status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gressing [facility] Work Phone: [phone]) 628-784908411617-04-3005Kkcveoitmq statusPatient at Baseline [facility] Work Phone: Mental Status NbykTdifduanihKelwcuNvctxlpl99-24-5455Kscyuhueg functionCognitive Status [facility] Work Phone: [phone]) 778-313908241515-57-0262Chytsmgdj functionCognitive Status [facility] Work Phone: Clinical Notes 2021 to 05-16-2025 Note Date & [id number] Evaluation note* Diagnosis Onset Date Resolution Status Admit Date CHF (congestive heart failure) acuteOctober 2024 1:26pmChronic kidney disease, stage III (moderate)acute May 16, 2025 1:26pmHypertensionacuteOctober 2024 1:26pmMajor depressive disorderacuteOctober 2024 1:26pmObstructive sleep apneaacute May 16, 2025 1:26pmParoxysmal A-fibacuteOctober 2024 1:26pmSuicidal ideationsacuteOctober 2024 1:26pm [facility] Work Phone: 1(340) 899-465609-25-2025 NoteRight Eye Quality was good. Scan locations included subfoveal. Progression has worsened. Findings include abnormal foveal contour, intraretinal fluid. Left Eye Quality was good. Scan locations included subfoveal. Progression has been stable. Findings include abnormal foveal contour, intraretinal fluid.[facility] [id number] NoteTime Out 05/03/2025. 3:21 PM. Confirmed correct patient, procedure, site, and patient consented. Anesthesia Topical anesthesia was used. Anesthetic medications included Lidocaine 2%, Proparacaine 0.5%. Procedure Preparation included 5% betadine to ocular surface, eyelid speculum. A 30 gauge needle was used. Injection: 1.25 mg Bevacizumab 1.25 MG/0.05ML Route: Intravitreal, Site: Right Eye [facility]: [address]-8, Lot: [id number], Expiration date: 06/28/2025 Post-op Post injection exam [...] increased pain, redness, decreased vision or concerns. [facility] [id number] NoteTime Out 05/03/2025. 3:17 PM. Confirmed correct patient, procedure, site, and patient consented. Anesthesia Topical anesthesia was used. Anesthetic medications included Lidocaine 2%, Proparacaine 0.5%. Procedure Preparation included 5% betadine to ocular surface, eyelid speculum. Injection: 1.25 mg Bevacizumab 1.25 MG/0.05ML Route: Intravitreal, Site: Left Eye [facility]: [address]-2, Lot: [id number], Expiration date: 06/28/2025 Post-op Post injection exam [...] with increased pain, redness, decreased vision or concerns.[facility] BransonJxotegmxvm78-05-2852 History of Present illness Narrative* Sylvia Lui, [...] 1.25 MG/0.05ML Route: Intravitreal, Site: Left Eye [facility]: [address]-9, Lot: [id number], Expiration date: 06/28/2025 Post-op Post injection exam [...] MG/0.05ML Route: Intravitreal, Site: Right Eye [facility]: [address]-0, Lot: [id number], Expiration date: 06/28/2025 Post-op Post injection exam [...] decreased vision or concerns. documented in this encounterCox [id number] NoteTime Out 03/23/2025. 2:18 PM. Confirmed correct patient, procedure, site, and patient consented. Anesthesia Topical anesthesia was used. Anesthetic medications included Lidocaine 2%, Proparacaine 0.5%. Procedure Preparation included 5% betadine to ocular surface, eyelid speculum. A 30 gauge needle was used. Injection: 1.25 mg Bevacizumab 1.25 MG/0.05ML Route: Intravitreal, Site: Right Eye [facility]: [address]-1, Lot: [id number], Expiration date: 04/18/2025 Post-op Post injection exam [...] increased pain, redness, decreased vision or concerns. [facility] [id number] History of Present illness Narrative* Sylvia Lui, [...] MG/0.05ML Route: Intravitreal, Site: Right Eye [facility]: [address]-8, Lot: [id number], Expiration date: 04/18/2025 Post-op Post injection exam [...] decreased vision or concerns. documented in this encounterCox BransonVfgxuicvkz17-22-5721 History of Present illness Narrative* Carol Burns [...] MINI PEN NEEDLES) 31G x 5 mm [facility], USE 1 EACH DAY DIRECTED, Disp:100 each, [...] understanding. Carol Burns DPM documented in this [facility]07-31-2025 Instructions* Patient Instructions* Carol Burns DPM - 03/10/2025 4:00 PM EDT Acclimating instructions as noted documented in this [facility]07-29-2025 NoteRight Eye Quality was good. Scan locations included subfoveal. Progression has worsened. Findings include abnormal foveal contour, intraretinal fluid, subretinal fluid. Left Eye Quality was good. Scan locations included subfoveal. Progression has worsened. Findings include abnormal foveal contour, intraretinal fluid, subretinal fluid.[facility] BransonJapnoyrutx16-65-7587 History of Present illness Narrative * Sylvia [...] Will start with Avastin. documented in this encounterCox BransonQhxuyqdttm36-59-2267 History of Present illness Narrative* Carol Burns [...] Measurements obtained in the weight-bearing position utilizing [employer] device. Patient education and counseling relative to [...] understanding. Carol Burns DPM documented in this [facility]07-08-2025 Instructions* Patient Instructions* Carol Burns DPM - 02/15/2025 1:00 PM EDT As noted documented in this [facility]06-11-2025 History of Present illness Narrative* Carol Burns [...] understanding. Carol Burns DPM documented in this [facility]06-11-2025 Instructions* Patient Instructions* Carol Burns DPM - 01/19/2025 10:45 AM EDT As noted documented in this [facility]03-20[facility] Chief Complaint: New patient here to re-establish care. He had heart cath back in 2009 at [facility]. He was diagnosed with afib [...] can be completed. Barb Hays MD, MPH, [facility], [facility], [facility] Interventional Cardiology Pager Email: [email or web address] History of Present illness Narrative* [...] by: Peter Molina DO documented in this [id number] Progress note Author Lupe Hernandez [facility] April 08, 2022 1:38pmNote Date/TimeAugust 2021 1:38pm[place] [address] Hospitalist Progress Note Signed Patient: Evelin Patterson MR#: [id number] : 1955 Acct:[id number] Age/Sex: 66 / M Adm Date: 2 Loc: 3T Room: [address] [place] [address] Type: ADM INOo Attending Dr: Lupe Hernandez [...] Hypothyroidism: Plan Patient currently awaiting placement to nursing home facility. Remains in normal sinus rhythm. [...] <Electronically signed by Lupe Hernandez MD> 04/08/221337 [facility] Work Phone: 1(101) 772-969008-28-2022 Discharge summary Author Luke Moran [facility] [place] 28th, 2022 4:16pmNote Date/TimeAugust 2021 10:05[place] [address] Discharge Summary Signed with Addenda Patient: Evelin Patterson MR#: [id number] : 1955 Acct:[id number] Age/Sex: 66 / M Adm Date: 2 Loc: Room: [address] [place] [address]: Luke Moran MD Copies to: [...] discharged home in stable condition to a nursing home facility. Medical therapy was adjusted as [...] 10:24: POC Glucose 271 04/03/22 07:34: Free [place] LC, Quant 93.9 H, Free Lambda LC, Quant 61.6 H, Free [place]/Lambda Ratio 1.52 Exam Physical Exam Vital Signs: Temp Pulse Resp BP Pulse Ox O2 Del Method O2 Flow Rate 97.9 F 85 20 134/76 90 L Room Air 2 04/05/22 08:00 04/05/22 08:00 04/05/22 08:00 04/05/22 08:00 04/05/22 08:00 04/05/22 08:00 04/05/22 08:00 FiO2 30 04/04/22 22:34 Discharge Plan Discharge Plan Patient Disposition: [facility] Facility Activity: Ambulate as Tolerated Diet: Diabetic and Low-Sodium Additional Instructions: Please have company providing CPAP machine fit the patient with a mask that he can tolerate. Use a CPAP of 8 whenever asleep until the sleep study performed. [facility] Facility to manage care: - Full code [...] Instructions: Sliding Scale ACHS Other Ambulatory Orders: KENNEL KEEPER polysom procedure (Routine) Timeframe: 3 Weeks Location: Determined by Patient Ordered By: Luke Moran Follow Up: [facility] Sleep Lab [Outside] ([facility] Sleep Lab or Central Scheduling will call you to arrange date/time for sleep study. ) Documented By: Luke Moran MD 04/07/22 0949 Signed By: <Electronically signed by Luke Moran MD> 04/07/22 4720 [facility] Work Phone: 1(479) 733-104508-27-2022 Progress note Author Luke Moran [facility] April 06, 2022 2:50pmNote Date/TimeAugust 2021 2:50pm[place] [address] Hospitalist Progress Note Signed Patient: Evelin Patterson MR#: [id number] : 1955 Acct:[id number] Age/Sex: 66 / M Adm Date: 2 Loc: 3T Room: [address] [place] [address] Type: ADM INOo Attending Dr: Luke Moran [...] Insuln.Pen SUBCUT 04/03/23 07:59 40 units DAILY.WITH.BKFAST JOISANE Administration Isosorbide Mononitrate 30 mg 04/03/22 09:00 [...] signed by Luke Moran MD> 04/06/22 1450 [facility] Work Phone: 1(731) 587-947408-25-2022 Progress note Author Luke Moran [facility] April 04, 2022 4:25pmNote Date/TimeAugust 2021 4:25pm[place] [address] Hospitalist Progress Note Signed Patient: Evelin Patterson MR#: [id number] : 1955 Acct:[id number] Age/Sex: 66 / M Adm Date: 2 Loc: Room: [address] [place] [address] Type: ADM INOo Attending Dr: Luke Moran [...] <Electronically signed by Luke Moran MD> 04/04/22 0732 [facility] Work Phone: 1(775) 778-974008-24-2022 Progress note Author Luke Moran [facility] April 03, 2022 2:05pmNote Date/TimeAugust 2021 2:05pm[place] [address] Hospitalist Progress Note Signed Patient: Evelin Patterson MR#: [id number] : 1955 Acct:[id number] Age/Sex: 66 / M Adm Date: 2 Loc: Room: [address] [place] [address] Type: ADM INOo Attending Dr: Luke Moran [...] signed by Luke Moran MD> 04/03/22 1403 [facility] Work Phone: 1(635) 906-496908-23-2022 History and physical note Author Luke Moran [facility] April 02, 2022 7:48pmNote Date/TimeAugust 2021 7:[address] [address] Hospitalist H&P Signed Patient: Evelin Patterson MR#: [id number] : 1955 Acct:[id number] Age/Sex: 66 / M Adm Date: 2 Loc: ER Room: Type: [facility] ER Attending Dr: Copies to: MD [...] Type: None Social History Comments: [facility] Medications and Allergies Allergies metformin [...] % (Auto) 8.7 % (.) 04/02/22 17:51 [place] % (Auto) 12.2 % (.) 04/02/22 17:51 Eos % (Auto) 2.4 % (.) 04/02/22 17:51 Baso % (Auto) 0.6 % (.) 04/02/22 17:51 Neut # (Auto) 6.4 x10E3/uL (1.8-7.7) 04/02/22 17:51 Lymph # (Auto) 0.7 x10E3/uL (1.00-4.8) L 04/02/22 17:51 [place] # (Auto) 1.0 x10E3/uL (0.0-0.8) H 04/02/22 [...] <Electronically signed by Luke Moran MD> 04/02/221947 [facility] Work Phone: [phone]) 185-486708-06-2022 Discharge summary Author Xin Phan [facility] March 16, 2022 9:37amNote Date/TimeAugust 2021 9:37[place] [address] Discharge Summary Signed Patient: Evelin Patterson MR#: [id number] : 1955 Acct:[id number] Age/Sex: 66 / M Adm Date: 2 Loc: Room: [address] [place] [address]: Xin Phan MD Copies to: [...] anxiety and depression who was transferred from [facility] for acute kidney injury.? Patient presented with generalized weakness anddisorientation at [facility]. He was noted to have blood [...] headache or dizziness.? No fevers Paperwork from [facility] reviewed, chest x-ray with no acute cardiopulmonary process.? Sodium 129.?Potassium 3.3.? Creatinine 2.52.? WBC 6.8.? Hemoglobin 12.5.? Glucose 4.34.? Patient will be admitted by the hospitalist team for further evaluation and management. Patient was positive for COVID, patient was alert oriented x3 at [facility],patient states that he has been having symptoms [...] untreated sleep apnea Instructions: Blood Glucose Monitoring, [facility] COVID-19 Discharge Instructions Prescriptions: New Levemir FlexTouch [...] signed by Xin Phan MD> 03/16/22 0937 [facility] Work Phone: 1([phone]) 548-522708-05-2022 Progress note Author Sarah [facility] March 15, 2022 3:43pmNote Date/TimeAugust 2021 3:37pm[place] [address] Nephrology Progress Note Signed Patient: Evelin Patterson MR#: [id number] : 1955 Acct:[id number] Age/Sex: 66 / M Adm Date: 2 Loc: Room: [address] [place] [address] Type: ADM IN Attending Dr: Xin Pahn MD Copies to: ~ Date of Service: 03/15/2022 Subjective Subjective Narrative: This is 66-year-old male patient with a past medical history of morbid obesity, endocarditis, paroxysmal A. fib, diabetes type 2, anxiety and depression and chronic kidney disease stage III. Patient presented to [facility] with feeling weak and disoriented for 2 weeks which has gotten worse. Patient has been having cough with decreased appetite and loss of taste for a week. Lab at [facility] shows acute kidney injury with creatinine up to 4.3 mg/dL along with hyperglycemia with initial blood glucose level more than 400. Patient's blood pressure was in the 80s at [facility]. Patient was given IV fluid [...] 500 Mg Tablet) 500 mg PO DAILY [facility] Stop: 03/14/23 08:59 Last Admin: 03/15/22 08:34 Dose: 500 mg Dexamethasone 2 mg/ (Dexamethasone 4 mg) 6 mg PO DAILY [facility] Stop: 03/22/23 08:59 Last Admin: 03/15/22 08:34 [...] 5,000 Unit/Ml Vial) 5,000 unit SUBCUT Q12HR [facility] Stop: 03/14/23 08:59 Last Admin: 03/15/22 08:34 Dose: 5,000 unit Sodium Chloride (0.9% Sodium Chloride 1,000 Ml) 1,000 mls @ 100 mls/hr IV .[id number] Stop: 03/14/23 01:59 Last Admin: 03/15/22 06:46 Dose: 100 mls/hr Insulin Aspart (Insulin Aspart 300 Units/3 Ml Insuln.Pen) 0 units SUBCUT TID.WM.HS [facility]; Protocol Stop: 03/14/23 07:59 Last Admin: 03/15/22 12:06 Dose: 9 units Insulin Detemir (Insulin Detemir 300 Units/3 Ml Insuln.Pen) 40 units SUBCUT DAILY.WITH.BKFAST [facility] Stop: 03/16/23 07:59 Zinc Sulfate (Zinc Sulfate 220 Mg Capsule) 220 mg PO DAILY [facility] Stop: 03/14/23 08:59 Last Admin: 03/15/22 08:34 [...] question Documented By: Sarah Osuna MD 03/15/22 1532 Signed By: <Electronically signed by Sarah Osuna MD> 03/15/22 1549 [facility] Work Phone: [phone]) 110-858408-05-2022 Progress note Author Xin Phan [facility] March 15, 2022 12:44pmNote Date/TimeAugust 2021 12:44pm[place] [address] Hospitalist Progress Note Signed Patient: Evelin Patterson MR#: [id number] : 1955 Acct:[id number] Age/Sex: 66 / M Adm Date: 2 Loc: Room: [address] [place] [address] Type: ADM IN Attending Dr: Xin Phan MD Copies to: ~ Date of Service: 03/15/2022 Subjective Subjective Narrative: Patient is a 66-year-old male, with a PMHx of Morbid obesity, endocarditis in August of this year,atrial fibrillation, type 2 diabetes, hypertension, liver cirrhosis, anxiety and depression who wastransferred from [facility] for acute kidney injury. Patient presented with generalized weakness anddisorientation at [facility]. He was noted to have blood [...] secondary to poor oral intake. Presented at [facility] with low blood pressures in the 80s. ?Creatinine at [facility] 4.34. Baseline creatinine ~1.4 - Nephrology [...] to diabetic diet ?Blood sugar at [facility] was in the 400s ? Will [...] <Electronically signed by Xin Phan MD> 03/15/22 1539 [facility] Work Phone: 1(401) 526-756608-04-2022 Progress note Author Renato Looney [facility] March 14, 2022 2:14pmNote Date/TimeAugust 2021 2:14pm[place] [address] Progress Note Signed Patient: Evelin Patterson MR#: [id number] : 1955 Acct:[id number] Age/Sex: 66 / M Adm Date: 2 Loc: Room: [address] [place] [address] Type: ADM IN Attending Dr: Renato Looney MD Copies to: ~ Date of Service: 03/14/2022 Progress Narrative Note PROGRESS NOTE Progress Note: Patient seen and evaluated by interior wall assembler early this morning and also by myself. Briefly, patient is a 66-year-old male past medical history significant for obesity, atrial fibrillation, hypertension, diabetes, liver cirrhosis, mood disorder and recent endocarditis infection who presented to outlying facility due to generalized weakness found to have COVID-19 and acute kidney injury and was transferred to [facility] for further evaluation and management. 1. [...] signed by Renato Looney MD> 03/14/22 1414 [facility] Work Phone: 1(875) 440-849708-04-2022 Consult note Author Sarah Osuna [facility] March 14, 2022 12:30pmNote Date/TimeAugust 2021 12:30pm[place] [address] Nephrology Consult Note Signed Patient: Evelin Patterson MR#: [id number] : 1955 Acct:[id number] Age/Sex: 66 / M Adm Date: 2 Loc: Room: [address] [place] [address] Type: ADM IN Attending Dr: Renato Looney [...] kidney disease stage III. Patient presented to [facility] with feeling weak and disoriented for 2 weeks which has gotten worse. Patient has been having cough with decreased appetite and loss of taste for a week. Lab at [facility] shows acute kidney injury with creatinine up to 4.3 mg/dL along with hyperglycemia with initial blood glucose level more than 400. Patient's blood pressure was in the 80s at [facility]. Patient was given IV fluid [...] Type: None Social History Comments: [facility] in [facility] Medications & Allergies Allergies metformin [...] 500 Mg Tablet) 500 mg PO DAILY [facility] Stop: 03/14/23 08:59 Last Admin: 03/14/22 08:34 Dose: 500 mg Dexamethasone 2 mg/ (Dexamethasone 4 mg) 6 mg PO DAILY [facility] Stop: 03/22/23 08:59 Last Admin: 03/14/22 08:33 [...] 5,000 Unit/Ml Vial) 5,000 unit SUBCUT Q12HR [facility] Stop: 03/14/23 08:59 Last Admin: 03/14/22 08:39 Dose: 5,000 unit Sodium Chloride (0.9% Sodium Chloride 1,000 Ml) 1,000 mls @ 100 mls/hr IV .[id number] Stop: 03/14/23 01:59 Last Admin: 03/14/22 03:26 Dose: 100 mls/hr Insulin Aspart (Insulin Aspart 300 Units/3 Ml Insuln.Pen) 0 units SUBCUT TID.WM.HS [facility]; Protocol Stop: 03/14/23 07:59 Last Admin: 03/14/22 12:06 Dose: Not Given Insulin Detemir (Insulin Detemir 300 Units/3 Ml Insuln.Pen) 35 units SUBCUT DAILY.WITH.BKFAST [facility] Stop: 03/14/23 07:59 Last Admin: 03/14/22 08:34 Dose: 35 units Zinc Sulfate (Zinc Sulfate 220 Mg Capsule) 220 mg PO DAILY [facility] Stop: 03/14/23 08:59 Last Admin: 03/14/22 08:34 [...] Michael Tinajero M.D.03/14/2022 8:24 AM Dictation Location: [place] [address] Any impression(s) listed above is documentation that [...] <Electronically signed by Sarah Osuna MD> 03/14/22 6701 [facility] Work Phone: 1(203) [phone] History and physical note Author Mary Jane Riley [facility] March 14, 2022 6:40amNote Date/TimeAugust 2021 2:02[place] [address] Hospitalist H&P Signed Patient: Evelin Patterson MR#: [id number] : 1955 Acct:[id number] Age/Sex: 66 / M Adm Date: 2 Loc: 3T Room: 9M7306-0 Type: ADM IN Attending Dr: Mary Jane Hanna MD Copies to: MD Leah Marin APRN Marc Naderer, MD~ HPI DATE OF EXAMINATION: 03/14/22 CHIEF COMPLAINT: FRANC HISTORY OF PRESENT ILLNESS: Patient is a 66-year-old male, with a PMHx of Morbid obesity, endocarditis in August of this year,atrial fibrillation, type 2 diabetes, hypertension, liver cirrhosis, anxiety and depression who wastransferred from [facility] for acute kidney injury. Patient presented with generalized weakness anddisorientation at [facility]. He was noted to have blood [...] No headache or dizziness.No fevers Paperwork from [facility] reviewed, chest x-ray with no acute [...] Type: None Social History Comments: [facility] in [facility] Medications and Allergies Allergies metformin [...] secondary to poor oral intake. Presented at [facility] with low blood pressures in the 80s. ?Creatinine at [facility] 4.34. Baseline creatinine ~1.4 ?Urine sodium, creatinine, urea pending ? Urine output monitoring ? Start IV fluids ? Hold home lisinopril and renally adjust medications ?Consider renal ultrasound if no improvement ? Nephrology consult ?Monitor BMP COVID-19 positive -unvaccinated. ? Presented with productive cough, hypoxia, loss of taste and generalized weakness ? Afebrile, no leukocytosis ? Chest x-ray from [facility] did not show any acute cardiopulmonary [...] to diabetic diet ?Blood sugar at [facility] was in the 400s ?Basal insulin [...] the plan of care and confirmed the resident's/information technology intern/medical student's dictation/written note. Patient is a [...] by Mary Jane Hanna MD> 03/14/22 0640 [facility] Work Phone: 1(840) 267-926304-19-2022 Progress note Author Lupe Hernandez [facility] April 09, 2022 3:32pmNote Date/TimeAugust 2021 1:08pmJohn [place] [id number] Hospitalist Progress Note Signed with Muna Patient: Evelin Patterson MR#: [id number] : 1955 Acct:[id number] Age/Sex: 66 / M Adm Date: 2 Loc: 3T Room: 3P5016-8 Type: DIS INOo Attending Dr: Lupe Hernandez MD Copies to: ~ ADDENDUM1 Patient was personally seen by me on the day of encounter, reviewed his history and performed long elements of exam and formulated the plan of care and confirmedthe residents note below. Unfortunately patient has been denied by insurance for nursing home facility after peer to peer.He will be [...] to thrive, paroxysmal A. fib, CKD 3, jmu-korrykv-xkqevqivq diabetes, CHF is being monitored on the floor while a dfpk-dc-pbfp was had with regards to the patient's [...] agreed the patient would do well at nursing home facility. Documented By: Allen Perez DO, RES 2 1302 Signed By: <Electronically signed by DO TAMMIE Perez> 04/09/22 1308 <Electronically signed by Lupe Hernandez MD> 04/09/22 1531 [facility] Work Phone: Discharge summary Author Luke Moran [facility] April 07, 2022 4:16pmNote Date/TimeAugust 2021 10:[address] [address] Discharge Summary Signed with Addenda Patient: Evelin Patterson MR#: [id number] : 1955 Acct:[id number] Age/Sex: 66 / M Adm Date: 2 Loc: 3T Room: 1T0289-[address]: Luke Moran MD Copies to: [...] discharged home in stable condition to a nursing home facility. Medical therapy was adjusted as [...] 10:24: POC Glucose 271 04/03/22 07:34: Free [place] LC, Quant 93.9 H, Free Lambda LC, Quant 61.6 H, Free [place]/Lambda Ratio 1.52 Exam Physical Exam Vital Signs: Temp Pulse Resp BP Pulse Ox O2 Del Method O2 Flow Rate 97.9 F 85 20 134/76 90 L Room Air 2 04/05/22 08:00 04/05/22 08:00 04/05/22 08:00 04/05/22 08:00 04/05/22 08:00 04/05/22 08:00 04/05/22 08:00 FiO2 30 04/04/22 22:34 Discharge Plan Discharge Plan Patient Disposition: [facility] Facility Activity: Ambulate as Tolerated Diet: Diabetic and Low-Sodium Additional Instructions: Please have company providing CPAP machine fit the patient with a mask that he can tolerate. Use a CPAP of 8 whenever asleep until the sleep study performed. [facility] Facility to manage care: - Full code [...] Instructions: Sliding Scale ACHS Other Ambulatory Orders: KENNEL KEEPER polysom procedure (Routine) Timeframe: 3 Weeks Location: Determined by Patient Ordered By: Luke Moran Follow Up: [facility] Sleep Lab [Outside] ([facility] Sleep Lab or Central Scheduling will call you to arrange date/time for sleep study. ) Documented By: Luke Moran MD 04/07/22 0959 Signed By: <Electronically signed by Luke Moran MD> 04/07/22 1610 [facility] Work Phone: Evaluation + Plan note No data available for this section [facility] Evaluation note* Diagnosis Onset Date Resolution Status FRANC (acute kidney injury) acuteChronic kidney disease, stage III (moderate)acuteCOVIDacuteDiabetesacute HyperglycemiaacuteHypertensionacuteHyponatremiaacuteAbrasion of elbowacuteCHF (congestive heart failure)acuteDiabetes mellitus, type 2acuteFailure to thrive acuteFallacuteHypergammaglobulinemiaacuteHypothyroidismacuteHypoxemiaacuteMorbid obesity due to excess caloriesacuteObstructive sleep apneaacuteUnable to care for selfacute [facility] Work Phone: Evaluation note* Diagnosis Hypotension, unspecified hypotension type- Primary Fall, initial encounter Refusal of treatment Surgical or other procedure not carried out because of patient's decision documented in this encounter [facility]No assessment information availableA[facility] Work Phone: Evaluation note* Diagnosis Primary osteoarthritis of both knees- Primary Seasonal allergic rhinitis due to pollen Dermatophytosis of nail- Primary Dystrophic nail Other specified disease of nail Diabetic polyneuropathy associated with type 2 diabetes mellitus ([facility]) Type II diabetes mellitus with peripheral circulatory disorder ([facility]) Type II or unspecified type diabetes mellitus with peripheral circulatory disorders, not stated as uncontrolled Encounter for long-term (current) use of insulin ([facility]) Encounter for long-term (current) use of insulin documented in this encounter [facility] HealthcareEvaluation note* Diagnosis Primary osteoarthritis of both knees- Primary Seasonal allergic rhinitis due to pollen Diabetic polyneuropathy associated with type 2 diabetes mellitus (HCC)- Primary Type II diabetes mellitus with peripheral circulatory disorder (HCC) Type II or unspecified type diabetes mellitus with peripheral circulatory disorders, not stated as uncontrolled Encounter for long-term (current) use of insulin ([facility]) Encounter for long-term (current) use of insulin documented in this encounter [facility] HealthcareEvaluation note* Diagnosis Primary osteoarthritis of both knees- Primary Seasonal allergic rhinitis due to pollen Age-related nuclear cataract of both eyes- Primary 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) 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 associated with type 2 diabetes mellitus (HCC) documented in this encounter [facility] HealthcareEvaluation note* Diagnosis Primary osteoarthritis of [...] use of insulin documented in this encounter [facility] HealthcareEvaluation note* Diagnosis Primary osteoarthritis of [...] Admit Date Suicidal ideations acuteOctober 2024 1:26pm [facility] Work Phone: Hospital Discharge instructions No data available for this section [facility] Hospital Discharge instructionsAmbulatory Orders* Initiate Home Health Time Frame: 04/09/22, Location: Determined By Patient Additional Instructions Please wear home oxygen at 2l at all times. HOME HEALTH TO MANAGE: Nursing/PT/OT/Aide/Intake Manager to eval and treat Monitor VS per protocol Maintain home oxygen at 2l continuous *Oxygen therapy is new, educate patient on Monitor Respiratory assessment Assist with medication management and provide medication education Assist with glucose control Skin care TID: *Theraworx protect to bilateral groin and abdominal fold redness. *Educate patient on Provide education on high risk fall precautions [facility] Work Phone: Hospital Discharge instructions Additional Instructions If your symptoms return/worsen or you develop any further concerns or symptoms please see your doctor or return to the emergency department immediately.[facility] Work Phone: Progress note No data available for this section [facility] Progress note Author Sarah Osuna [facility] March 16, 2022 12:40pmNote Date/TimeAugust 2021 12:36pmJohn Ville [id number] Nephrology Progress Note Signed Patient: Evelin Patterson MR#: [id number] : 1955 Acct:[id number] Age/Sex: 66 / M Adm Date: 2 Loc: Room: [address] [place] [address] Type: ADM IN Attending Dr: Xin Phan MD Copies to: ~ Date of Service: 03/16/2022 Subjective Subjective Narrative: This is 66-year-old male patient with a past medical history of morbid obesity, endocarditis, paroxysmal A. fib, diabetes type 2, anxiety and depression and chronic kidney disease stage III. Patient presented to [facility] with feeling weak and disoriented for 2 weeks which has gotten worse. Patient has been having cough with decreased appetite and loss of taste for a week. Lab at [facility] shows acute kidney injury with creatinine up to 4.3 mg/dL along with hyperglycemia with initial blood glucose level more than 400. Patient's blood pressure was in the 80s at [facility]. Patient was given IV fluid [...] 5 Mg Tablet) 5 mg PO DAILY [facility] Stop: 03/15/23 15:59 Last Admin: 03/16/22 08:08 [...] Units/3 Ml Insuln.Pen) 0 units SUBCUT TID.WM.HS [facility]; Protocol Stop: 03/14/23 07:59 Last Admin: 03/16/22 11:57 Dose: 8 units Insulin Detemir (Insulin Detemir 300 Units/3 Ml Insuln.Pen) 40 units SUBCUT DAILY.WITH.BKFAST JOSIANE Stop: 03/16/23 07:59 Last Admin: 03/16/22 08:10 Dose: 40 units Zinc Sulfate (Zinc Sulfate 220 Mg Capsule) 220 mg PO DAILY [facility] Stop: 03/14/23 08:59 Last Admin: 03/16/22 08:08 [...] signed by Sarah Osuna MD> 03/16/22 1240 [facility] Work Phone: Progress note Author Luke Moran [facility] April 03, 2022 2:05pmNote Date/TimeAugust 2021 2:05pm[place] [address] Hospitalist Progress Note Signed Patient: Evelin Patterson MR#: [id number] : 1955 Acct:[id number] Age/Sex: 66 / M Adm Date: 2 Loc: Room: [address] [place] [address] Type: ADM INOo Attending Dr: Luke Moran [...] signed by Luke Moran MD> 04/03/22 1405 [facility] Work Phone: Progress note Author Luek Moran [facility] April 04, 2022 4:25pmNote Date/TimeAugust 2021 4:25pm[place] [address] Hospitalist Progress Note Signed Patient: Evelin Patterson MR#: [id number] : 1955 Acct:[id number] Age/Sex: 66 / M Adm Date: 2 Loc: Room: [address] [place] [address] Type: ADM INOo Attending Dr: Luke Moran [...] III BMI 51 Cirrhosis likely secondary to [place] Diabetes mellitus type 2 Anxiety disorder Hypertension [...] Flush Documented By: Luke Moran MD 04/04/22 1627 Signed By: <Electronically signed by Luke Moran MD> 04/04/22 1625 [facility] Work Phone: Progress note Author Luke Moran [facility] April 06, 2022 2:50pmNote Date/TimeAugust 2021 2:50pmJohn Ville [id number] Hospitalist Progress Note Signed Patient: Evelin Patterson MR#: [id number] : 1955 Acct:[id number] Age/Sex: 66 / M Adm Date: 2 Loc: 3T Room: [address] [place] [address] Type: ADM INOo Attending Dr: Luke Moran [...] signed by Luke Moran MD> 04/06/22 1450 [facility] Work Phone: Progress note Author Lupe Hernandez [facility] April 08, 2022 1:38pmNote Date/TimeAugust 2021 1:38pm[place] [address] Hospitalist Progress Note Signed Patient: Evelin Patterson MR#: [id number] : 1955 Acct:[id number] Age/Sex: 66 / M Adm Date: 2 Loc: 3T Room: [address] [place] [address] Type: ADM INOo Attending Dr: Lupe Hernandez [...] Tablet PO 04/03/23 08:59 40 mg DAILY OJSIANE Administration Multi-Ingredient Mouthwash/Gargle 5 ml 04/07/22 11:19 [...] Hypothyroidism: Plan Patient currently awaiting placement to nursing home facility. Remains in normal sinus rhythm. He has not been able to tolerate CPAP. He will benefit from sleep study as an outpatient. Dose of levothyroxine has been increased dueto elevated TSH. Patient will require outpatient hematology/oncology consultation regarding gammopathy. Continue basal insulin sliding scale coverage. Continue lisinopril, sertraline, ropinirole Xarelto for DVT prophylaxis Documented By: Lupe Hernandez MD 04/08/22 1333 Signed By: <Electronically signed by Lupe Hernandez MD> 04/08/22 1333 [facility] Work Phone: Reason for referral (narrative)No reason for referral information availableAdena Pike [facility] Work Phone: Chief Complaint [...] Unallocated, Noms MD Francisco [address] [place] [address] PCP - GeneralFamily Medicine10/11/24Team MemberRelationshipSpecialtyStart DateEnd Date Ezio Amado MD [address] [place] [phone] PCP - GeneralFamily Medicine01/19/25 Arline Lazar MD [address] [place] [address] Nurse PractitionerFamily Medicine01/19/25Team MemberRelationshipSpecialtyStart DateEnd Date Ezio Amado MD [address] [place] [phone] PCP - GeneralFamily Medicine01/19/25 Arline Lazar MD [address] [place] [address] Nurse PractitionerFamily Medicine01/19/25Team MemberRelationshipSpecialtyStart DateEnd Date Ezio Amado MD [address] [place] [phone] PCP - GeneralFamily Medicine01/19/25 Arline Lazar MD [address] [place] [address] Nurse PractitionerFamily Medicine01/19/25 Team Status: Inactive Member Role Status Dates Arline Lazar , MEDICAL EDUCATION MANAGER-C Primary Care Provider Active Start: December 27, 2024 End: December 27, 2024JOSE JUAN Pereira-Marie ProviderActiveStart: December 27, 2024 End: December 27, 2024 Team Status: Inactive Member Role Status Dates Arline Lazar MEDICAL EDUCATION MANAGER-C Primary Care Provider Active Start: February 25, 2025 End: February 25, 2025Setheresa Óscar Samantha KRISTOPHERttending ProviderActiveStart: February 25, 2025 End: February 25, 2025Team MemberRelationshipSpecialtyStart DateEnd Ezio Amado MD [address] [place] [phone] PCP - GeneralFamily Medicine01/19/25 Arline Lazar MD [address] [place], [place] [phone] [facility]01/19/25Team MemberRelationshipSpecialtyStart DateEnd Ezio Amado MD [address] [place] [phone] PCP - GeneralFamily Medicine01/19/25 Arline Lazar MD [address] [place] [phone] Nurse [facility]erMont[facility] Medicine01/19/25Team MemberRelationshipSpecialtyStart DateEnd Ezio Amado MD [address] [place] [phone] PCP - GeneralFamily Medicine01/19/25 Arline Lazar MD [address] [place] [address] Nurse PractitionerFamily Medicine01/19/25Team MemberRelationshipSpecialtyStart End Ezio Amado MD [address] [place] [phone] PCP - GeneralFamily Medicine01/19/25 Arline Lazar MD [address] [place] [address], [place] [address] Nurse PractitionerFanew [facility] Medicine01/19/25Team MemberRelationshipSpecialtyStart End Ezio Amado MD [address] [place] [address], [place] [phone] PCP - GeneralFamily Medicine01/19/25 Arline Lazar MD [address] [place] [phone] [facility]01/19/25 Team Status: Inactive Member Role Status Dates Arline Lazar NP-C Attending Provider Active Start: March 25, 2025 End: March 25, 2025Team MemberRelationshipSpecialtyStart End Ezio Amado MD [address] [place] [address], [place] [phone] PCP - GeneralFamily Medicine01/19/25 Arline Lazar MD [facility] [place] [address] [facility] Medicine01/19/25Team MemberRelationshipSpecialtyStart End Ezio Amado MD [address] [place] [phone] PCP - GeneralFanew [facility] Medicine01/19/25 Arline Lazar MD [address] [place] [phone] [facility]01/19/25 Team Status: Active Member Role Status Dates Arlnie Lazar MEDICAL EDUCATION MANAGER-C Primary Care Provider Active Start: May 16, 2025 Geni Ching ProviderActiveStart: May 16, 2025 Chung Schuler ProviderActiveStart: May 16, 2025 Brenda Schuler ProviderActiveStart: May 16, 2025 Team Status: Active Member Role/Relationship Status Dates Arline Lazar MEDICAL EDUCATION MANAGER-C Primary Care Provider Active Team Status: Inactive Member Role/Relationship Status Dates Arline Lazar MEDICAL EDUCATION MANAGER-C Attending Provider Active Start: March 25, 2025 End: March 25, 2025 Team Status: Active Member Role/Relationship Status Dates Arline Lazar MEDICAL EDUCATION MANAGER-C Primary Care Provider Active Start: May 16, [...] Member Role/Relationship Status Dates Arline Lazar , MEDICAL EDUCATION MANAGER-C Primary Care Provider Active Start: May 23, 2025 Geni Ching ProviderActiveStart: May 23, 2025 Chung Schuler ProviderActiveStart: May 23, 2025 JuanA Garza MDOther ProviderActiveStart: May 23, 2025 Ysabel [...] ProviderActiveStart: May 23, 2025 Trish Witt , MEDICAL EDUCATION MANAGER-COther ProviderActiveStart: May 23, 2025 Angie Cannon , [...] and content) DATE CREATED AUTHOR 05/08/2022 [facility] DATE CREATED AUTHOR AUTHOR'S ORGANIZ ATION 12/23/2022 [facility] DATE CREATED AUTHOR AUTHOR'S ORGANIZ ATION 04/27/2025 [facility] DATE CREATED AUTHOR AUTHOR'S ORGANIZ ATION 05/04/2025 [facility] DATE CREATED AUTHOR AUTHOR'S ORGANIZ ATION 05/18/2025 [facility] DATE CREATED AUTHOR AUTHOR'S ORGANIZ ATION 06/02/2025 [facility] Reason for Visit (unrecogniz [...] BE BASED ON THE PRIMARY CLINICAL RECORDS. [facility]. provides no warranty or guarantee of the accuracy or completeness of information in this document.
--- OUTSIDE RECORDS SUMMARY | 2025-08-10 20:29 | XMS_ITS | Clinical Summary ---
Author Organization [employer] Address [id number] [place] [address] Care Team Providers Care Highway Engineering Teacher Name Role Phone Pcp, Not In System Primary Care Provider Unavail able Allergies Active AllergyReactionsCriticalityNoted VhswHpsyzjmmQcxrbmwjy31/03/2022 Bloating and gas Other06/20/2016 COMPAZINE Prochlorperazine Medications [...] Active Problems ProblemNoted DateDiagnosed DateLower urinary tract kxkpactc49/16/2016 Overview (06/26/2016): +++++++++ 06/26/2016 ALLSCRIPTS SUMMARY +++++++++++ New problem as of March 2016. Uroflow postvoid residual ordered. Microscopic vvuslqimh40/16/2016 Overview (06/26/2016): +++++++++ 06/26/2016 ALLSCRIPTS SUMMARY +++++++++++ [...] of Binge DrinkingNot on file09/16/2018ChildcareAnswerDate RecordedChildcareUnknown 01/14/2019EmploymentAnswerDate ApsnamzoJgwetymoroXyjdppc40/06/2019Purpose - Life AnswerDate RecordedPurpose and direction in gvsgNmlmieh05/11/2021ex and Gender InformationValueDate RecordedSex Assigned at BirthNot on fileLegal SexMale 03/16/2015 11:54 AM EDTGender IdentityNot on fileSexual OrientationNot on file Last Filed Vital Signs Vital SignReadingTime TakenCommentsBlood Mrxandrs012/5008 11:50 PM EDT Jajfa863403/14/2022 12:10 AM EPZWvgsfbcancy56.6 ??C (97.8 ??F)03/13/2022 5:42 PM EDTRespiratory Ijsx280703/13/2022 6:30 PM EDTOxygen Abazodlftk52%03/14/2022 12:10 AM EDTInhaled Oxygen Concentration--[place]266 kg (363 lb 11.2 oz)03/13/2022 5:42 PM AXSMfwrff937.8 cm (5' 10 )03/13/2022 5:42 PM EDTBody Mass Index52.19 03/13/2022 5:42 PM EDT Plan of Treatment Health MaintenanceDue DateLast DoneCommentsDepression Iiezmfxmy82/19/1970Tobacco Tssmqsxpx45/19/1970Adult BMI Ohtglxcic95/19/1976DTaP,Tdap and Td Vaccines (1 - Tdap)1976Zoster (Shingles) Vaccine (1 of 2)11/28/2007Fall Risk Screening 2022Influenza Vuhkper8304/11/2025RSV ( or age 60+ yrs) (1 - 1-dose 75+ series)2032 [employer] Devices Not on file Insurance * Guarantor: Stephane Patterson LAccount TypeRelation to PatientDate of BirthPhone Billing AddressPersonal/MutekqQrqg49/[birth year][address] [address] Care Teams Team MemberRelationshipSpecialtyStart DateEnd Date Pcp, Not In System BEN Gross[place] [address] [facility]03/13/22
--- OUTSIDE RECORDS SUMMARY | 2025-08-10 20:29 | XMS_ITS | Clinical Summary ---
Author Organization [facility] Address [address] [place] [address] Care Team Providers Care Direct Marketing Representative Name Role Phone Arline Rouse CNP Primary Care Provider [phone] Allergies Active AllergyReactionsCriticalityNoted DateCommentsMetforminOther,Unknown 03/13/2022 Bloating and gas Other Reaction(s): Flatulence Bloating and gas ProchlorperazineAnxiety,EdpddOuf66/02/2022 flatulence Medications MedicationSigDispense QuantityRefillsLast FilledStart DateEnd DateStatus [...] 90 tablet 503/ctive Active Problems ProblemNoted DateDiagnosed PomhVlmmfwoipxnqzn59/20/2025Lumbar radiculopathy 10/28/2024ngina pectoris, vooqqpiy44/20/2025Shortness of uccslq5410/28/2024 Abdominal mass03/30/2024brasion of elbow03/30/2024cute UTI03/30/2024KI (acute kidney injury)03/30/2024ack pain03/30/2024HF (congestive heart failure) 03/30/2024hronic kidney disease, stage III (moderate)03/30/20246931MTOIX98/20/2024 Depressive uplbsywj77/20/2024Elevated erythrocyte sedimentation rate03/30/2024 Endocarditis due to Lklzksqjhlopqk71/20/7361Pjwq00/20/6468Fggoy36/20/2024 Generalized yidrdybz16/20/2623Inpinwkxx36/20/2024Hypergammaglobulinemia 03/30/20243427Jstivtvgrbucx43/20/5513Rgfvlzzglddfjk55/20/0971Yppegyynczmu09/20/2024 Twlefcphvao76/20/8809Muwirpcqicfchv79/20/6689Mboslytiaeyp30/20/2024 Zfcwqxeqnzlvao91/20/5093Xydlibmtk64/20/9210Kcdsiufmserd65/20/2024Morbid obesity due to excess eecuwwko85/20/2024MSSA rutsmrwvdd85/20/2024aroxysmal A-fib 03/30/2024ash and nonspecific skin fwnybreo09/20/2024Unable to care for self 03/30/2024AD in [place] bmzpyt1109/16/2023irrhosis of liver without ascites 09/16/2023OPD (chronic obstructive pulmonary disease)09/16/2023DD (degenerative disc disease), bclibdvz91/06/2024Type 2 diabetes mellitus with hyperglycemia, with long-term current use of tgiwfjp1809/16/2023iabetic grfinfwpxrjulw54/06/0316Ycpuktukvnvo33/06/2024Essential hypertension, benign 09/16/2023Gastroesophageal reflux whcsltd0609/16/2023Generalized anxiety disorder 09/16/2023Hashimoto's xgxlgvs8609/16/2023Hyperammonemia, type III09/16/2023 Zjlccwfc82/06/2024Lumbosacral radiculopathy due to degenerative joint disease of spine09/16/2023Obstructive sleep apnea qypowlqh00/06/2024rimary osteoarthritis of both knees09/16/2023 Overview (03/30/2024): Last Assessment & Plan: Increased pain and swelling for months and x-ray with OA. Start prednisone. Use percocet PRN. Referto ortho for evaluation. Patient declined PT. Restless leg qwohfhew54/06/2024Seasonal allergic rhinitis due to pollen 09/16/2023Mild nonproliferative diabetic retinopathy associated with type 2 diabetes eprrsgpm62/26/2018Epididymal pain06/26/2016 Overview (03/30/2024): +++++++++ 06/26/2016 ALLSCRIPTS SUMMARY +++++++++++ Worsening left epididymal discomfort started about November of 2015. Scrotal ultrasound was negative for epididymitis. No reproduction of discomfort with rectal exam. Patient treated empirically with Cipro in March 2016 Lower urinary tract bhqokhex26/16/2016 Overview (03/30/2024): +++++++++ 06/26/2016 ALLSCRIPTS SUMMARY +++++++++++ New problem as of March 2016. Uroflow postvoid residual ordered. Microscopic slbvyubet27/16/2016 Overview (03/30/2024): +++++++++ 06/26/2016 ALLSCRIPTS SUMMARY +++++++++++ Initial evaluation August 30-. Patient has sporadic on serial follow-up. March 2016 cytology negative Encounters DateTypeDepartmentCare BfokTneigishios31/03/2025[facility] [address] [place] [address] Barb Hays MD from Last 3 Months Family History Medical HistoryRelationNameCommentsNo Known ProblemsFatherNo Known Problems MotherRelationNameStatusCommentsFatherMother Social History Tobacco UseTypesPacks/DayYears UsedDateSmoking Tobacco: NeverSmokeless Tobacco: Never Tobacco Cessation:Counseling Given: Not Answered Alcohol UseStandard Drinks/WeekCommentsNever0 (1 standard drink = 0.6 oz pure alcohol)Sex and Gender InformationValueDate RecordedSex Assigned at BirthMale 11/18/2024 9:57 AM EDTLegal XbuQxlq5102/06/2022 10:00 PM EDTGender IdentityMale 11/18/2024 9:57 AM EDTSexual OrientationDon't know11/18/2024 9:57 AM EDT Last Filed Vital Signs Vital SignReadingTime TakenCommentsBlood Kqarmyqu627/8504 3:00 PM EDT Oipwq001511/18/2024 3:00 PM EDTTemperature--Respiratory Bztj878311/18/2024 3:00 PM EDTOxygen Gdxhuzjici30%11/18/2024 3:00 PM EDTInhaled Oxygen Concentration-- Xmcfhw028 kg (341 lb)10/28/2024 2:07 PM FGQUojivn158.8 cm (5' 10 )10/28/2024 2:07 PM EDTBody Mass Index48.9310/28/2024 2:07 PM EDT Plan of Treatment Health MaintenanceDue DateLast DoneCommentsCT Mejslxnitydj62/19/1958Colonoscopy 1955Colorectal Cancer Jonbwxxxh66/19/1958Diabetes: Hemoglobin A1C 1955FIT-DNA1957FIT1957FOBT1957Medicare Annual Wellness (AWV)11/27/19577743Hsqgxiekuqeeq19/19/1958Diabetes: Retinopathy Abuzsngao18/19/1968 Depression Wddsuhckg97/19/1970Diabetes: Urine Protein Gmqvzbhea39/19/1977Adult Fwdcixr0611/28/1979Zoster Vaccines (1 of 2)11/28/2007Fall Risk Tzkcruujc71/19/2023 COVID-19 Vaccine (1 - 2024- season)2025Influenza Vaccine (#1)2025 05/12/2024, 05/06/2023, 05/11/2021, Additional history existsPneumococcal Vaccine: 50+ SpmnxMtuovpcql33/28/2023HIB VaccinesAged OutNo longer eligible based on patient's [...] MemberRelationshipSpecialtyStart DateEnd Date Arline Rouse CNP [address] [facility] [place] [address] PCP - GeneralSaint [facility]10/25/24
--- OUTSIDE RECORDS SUMMARY | 2025-08-10 20:29 | XMS_ITS | Encounter Summary ---
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) Procedures ID OFFICE/OUTPATIENT NEW HIGH MDM 60 MINUTES Kirby Florina DO [address] [place] [address] Phone: tel: fax: Kirby Florian DO [address] [place] [address] Phone: tel: fax: Referral IDStatusReasonStart DateExpiration DateVisits RequestedVisits [id number] Perform Procedure [id number] Encounter Details DateTypeDepartmentCare Team (Latest Contact Info)Ydivdcvrfml03/29/2025Orders Only [facility] [address] [place] [address] Zahler, Kirby D, DO [address] [place] [address] Age-related nuclear cataract of both eyes; 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) Social History Tobacco UseTypesPacks/DayYears UsedDateSmoking Tobacco: NeverPassive Smoke Exposure: NeverSmokeless Tobacco: NeverAlcohol UseStandard Drinks/WeekComments Never0 (1 standard drink = 0.6 oz pure alcohol)caffeine intake : more than 4 cups per daySex and Gender InformationValueDate RecordedSex Assigned at BirthNot on fileLegal EeuRfby8710/23/2022 7:00 PM EDTGender IdentityNot on fileSexual OrientationNot on filedocumented as of this encounter Plan of Treatment DateTypeDepartmentCare Team (Latest Contact Info)Oigggbkuemi05/05/2026 1:00 PM ESTClinical Support [facility] [address] [place] [id number] Kirby Florian, DO [address] [place] [address] 11/02/2025 2:15 PM EDTOffice Visit [facility] [address] [place] [id number] Carlos Burns, KRIS [address] [place] [address] NameTypePriorityAssociated DiagnosesOrder ScheduleAmbulatory referral to OphthalmologyOutpatient ReferralRoutine 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) Expected: 08/08/2025 (Approximate), Expires: 02/06/2026documented as of this encounter Visit Diagnoses Diagnosis Age-related nuclear cataract of both eyes 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
--- OUTSIDE RECORDS SUMMARY | 2025-08-10 20:29 | XMS_ITS | Patient Health Record ---
Author Organization [facility] [place] Address [address] [place] [address] Care Team Providers Care Poultry Raiser Name Role Phone Arline Lazar Primary Care Provider Desean Mensah Unavailable [phone] Estephania Cowart Unavailable [phone] Kwasi Amado Unavailable [phone] Allergies Allergen (clinical drug ingredient) Drug/Non Drug Allergy documented on EMR Reaction Allergy Type Onset Date Status CompazineAnxietyDrug AllergyActivemetforminMetforminGI UpsetDrug AllergyActive Results Component Value Reference Range Notes CRP Reviewed date:03/28/2025 11:39:16 AM Interpretation: Performing Lab: Notes/Report: [facility] , C Reactive Protein 0.78 <=0.50 mg/dL Performing Lab:see noteML - [facility] LBIRON Reviewed date:03/29/2025 01:07:07 PM Interpretation: Performing Lab: Notes/Report: [facility] ,Iron44.065.0-175.0 ug/dLPerforming Lab:see noteML - [facility] LBCBC AUTO DIFF Reviewed date:11/18/2024 04:06:06 PM Interpretation: Performing Lab: Notes/Report: [facility] ,White Blood Count8.14.0-11.0 10 3/uLRed Blood Count4.104.70-6.10 10 6/uL Awdzbfrsmw58.614.0-18.0 g/yBCebszpqqah17.242.0-54.0 %Mean Corpuscular Gsgizv06.3 80.0-94.0 fLMean Corpuscular Cuzqkxkzha54.325.9-34.0 pgMean Corpuscular HGB Conc 32.029.9-35.2 g/dLRed Cell Distribution Width14.611.0-15.0 %Platelet Xbgov518 150-450 10 3/uLMean Platelet Jfpogp66.29.5-13.5 fLNeutrophils Percent Auto59.3 43.0-75.0 %Lymphocytes Percent Auto22.820.5-60.0 %Monocytes Percent Auto9.71.7- 12.0 %Eosinophils Percent Auto6.90.9-7.0 %Basophils Percent Auto1.10.2-2.0 % Immature Granulocytes Pct Auto0.20.0-0.5 %Neutrophils Absolute Auto4.81.4-6.5 10 3/uLLymphocytes Absolute Auto1.91.2-3.8 10 3/uLMonocytes Absolute Auto0.80.3-0.8 10 3/uLEosinophils Absolute Auto0.60.0-0.7 10 3/uLBasophils Absolute Auto0.10.0- 0.1 10 3/uLImmature Granulocytes Abs Auto0.020.00-0.03 10 3/uLPerforming Lab:see noteML - [facility] LBPROF CHEM 8 (BAS METB) Reviewed date:11/18/2024 04:06:06 PM Interpretation: Performing Lab: Notes/Report: [facility] ,Ahisgx059712-030 mmol/LPotassium3.93.5-5.1 mmol/WZxayxvnf16324-021 mmol/LCarbon Iekahcj38.221.0-32.0 mmol/LAnion Gap12.5Opfxywg46198-984 mg/dLBlood Urea Viwfjreq67.07.0-18.0 mg/dLCreatinine1.260.70-1.30 mg/dLEstimated GFR ( Lilibeth>60>=60 mL/min/1.73m 2Estimated GFR (Non- Ame57>=60 mL/min/1.73m 2 BUN Creatinine Ratio13.2Mtmzbdd3.68.5-10.1 mg/dLPerforming Lab:see noteML - [facility] LBCA echo doppler complete Reviewed date:11/18/2024 04:06:06 PM Interpretation: Performing Lab: Notes/Report: Source Facility: [facility] [place] [address] [place] [address] Cardiology Report Signed Patient: EVELIN PATTERSON MR#: [id number] : 1955 Acct:[id number] Age/Sex: 68 / M ADM Date: 11/17/24 Loc: CARD Attending Dr: Barb Vee M.D. Ordering Physician: aBrb Vee M.D. Date of Service: 11/17/24 Procedure(s): CA echo doppler complete Accession Number(s): [id number] cc: ARLINE LAZAR ; Barb Vee M.D. Patient Name: EVELIN PATTERSON MR#: [id number] : 1955 Exam Date: 11/17/2024 Ordering Doctor: [...] DONOHUE Signed By: 11/17/241903 DD/ 02 TD/TT: Phonograph Mechanic:INGA Rasheed Reviewed date:12/23/2024 01:21:09 PM Interpretation: Performing Lab: Notes/Report: Source Facility: [place] [address] XRay Report Signed Patient: EVELIN PATTERSON MR#: [id number] : 1955 Acct:[id number] Age/Sex: 69 / M ADM Date: 12/23/24 Loc: CARD Attending Dr: ARLINE LAZAR Ordering Physician: ARLINE LAZAR Date of Service: 12/23/24 Procedure(s): XR knee RT 3V Accession Number(s): [id number] cc: ARLINE LAZAR [place] [address] Patient Name: EVELIN PATTERSON MRN: [id number] date: 1955 Sex: M Assigned Patient Location: CARD Current Patient Location: CARD Accession/Order Number: [id number] Exam Date: 12/23/2024 11:45 Report Date: 12/23/2024 [...] Doherty M.D. 12/23/2024 11:46 AM Dictation Location: [place] [address] Electronically authenticated by: [id number] Y Date: 12/23/2024 11:46 Dictated By: Bon Doherty M.D. Signed By: 12/23/24 1148 DD/ 1146 TD/TT: Phonograph Mechanic:ECG 12 lead Reviewed date:12/24/2024 09:22:17 AM Interpretation: Performing Lab: Notes/Report: Source Facility: [facility] [place] [address] [address] Electrocardiograph Report Signed Patient: EVELIN PATTERSON MR#: [id number] : 1955 Acct:[id number] Age/Sex: 69 / M ADM Date: 12/23/24 Loc: CARD Attending Dr: ARLINE LAZAR Ordering Physician: ARLINE LAZAR Date of Service: 12/23/24 Procedure(s): ECG 12 lead Accession Number(s): [id number] cc: [facility] Test Date: 2024-12-23 Pat Name: EVELIN PATTERSON Department: Room: - Gender: Male 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 Measurements Intervals Shepherd Rate: 83 P: NM: QRS: 14 QRSD: 77 T: 41 QT: 378 QTc: 445 Interpretive Statements ATRIAL FIBRILLATION ABNORMAL ECG Compared to ECG 02/19/2024 08:07:42 No significant changes Electronically Signed On 12-23-2024 19:43:46 EDT by SHANEL DONOHUE M.D. Dictated By: SHANEL DONOHUE Signed By: 12/23/24194312/23/241943 DD/ 0 TD/TT: Phonograph Mechanic:CBC AUTO DIFF Reviewed date:03/28/2025 11:39:16 AM Interpretation: Performing Lab: Notes/Report: [facility] ,White Blood Count6.74.0-11.0 10 3/uLRed Blood Count3.544.70-6.10 10 6/uL Hemoglobin9.614.0-18.0 g/aNGersyxqcsa17.542.0-54.0 %Mean Corpuscular Ulpytc03.2 80.0-94.0 fLMean Corpuscular Jueumjsryv77.125.9-34.0 pgMean Corpuscular HGB Conc 31.529.9-35.2 g/dLRed Cell Distribution Width16.311.0-15.0 %Platelet Ysqyv491 150-450 10 3/uLMean Platelet Volume9.99.5-13.5 fLNeutrophils Percent Auto59.0 43.0-75.0 %Lymphocytes Percent Auto22.120.5-60.0 %Monocytes Percent Auto9.81.7- 12.0 %Eosinophils Percent Auto7.70.9-7.0 %Basophils Percent Auto1.20.2-2.0 % Immature Granulocytes Pct Auto0.20.0-0.5 %Neutrophils Absolute Auto3.91.4-6.5 10 3/uLLymphocytes Absolute Auto1.51.2-3.8 10 3/uLMonocytes Absolute Auto0.70.3- 0.8 10 3/uLEosinophils Absolute Auto0.50.0-0.7 10 3/uLBasophils Absolute Auto0.1 0.0-0.1 10 3/uLImmature Granulocytes Abs Auto0.010.00-0.03 10 3/uLPerforming Lab:see noteML - [facility] LBLIPID PROFILE Reviewed date:03/28/2025 11:39:16 AM Interpretation: Performing Lab: Notes/Report: [facility] ,Cxbvlbuzasvog227<=150 mg/jYSyyysondcst916<=200 mg/dLHDL Rgkgshbtaok0914-11 mg/dL > or =60 mg/dl - LOW CARDIOVASCULAR RISK <40 mg/dl - HIGH CARDIOVASCULAR RISK LDL Cholesterol Uzvkqlqckq689.0 <100 mg/dl OPTIMAL 100-129 mg/dl NEAR OR ABOVE OPTIMAL 130-159 mg/dl BORDERLINE HIGH 160-189 mg/dl HIGH >190 mg/dl VERY HIGH VLDL MYQWTKQOVYF16.2Chol HDL Ratio5.7 3.3 - 4.4 LOW RISK 4.4 - 7.1 AVERAGE RISK 7.1 - 11.0 MODERATE RISK >11.0 HIGH RISK Performing Lab:see noteML - [facility] LBPROF 14(COMP METB) Reviewed date:03/28/2025 11:39:16 AM Interpretation: Performing Lab: Notes/Report: [facility] ,Rrgupp198633-293 mmol/LPotassium5.13.5-5.1 mmol/HMgscaxcj34674-048 mmol/LCarbon Gmpxfuu43.121.0-32.0 mmol/LAnion Gap10.4Wzgkbsj39448-402 mg/dLBlood Urea Fdlwnhqu09.07.0-18.0 mg/dLCreatinine1.380.70-1.30 mg/dLEstimated GFR ( Lilibeth>60>=60 mL/min/1.73m 2Estimated GFR (Non- Ame51>=60 mL/min/1.73m 2 BUN Creatinine Ratio13.1Vsdofzv6.78.5-10.1 mg/dLBilirubin Total0.60.2-1.0 mg/dL Aspartate Amino Dsysxqqlqhl4839-18 U/LAlanine Rprbnmpwdieffuqb8753-69 U/L Alkaline Euzodwhitce35624-795 U/LTotal Protein8.16.4-8.2 g/dLAlbumin Level2.6 3.4-5.0 g/dLGlobulin5.5Albumin Globulin Ratio0.5Performing Lab:see noteML - [facility] LBPSA SCREENING Reviewed date:03/28/2025 11:39:16 AM Interpretation: Performing Lab: Notes/Report: [facility] ,Prostate Specific Antigen Scrn0.83<=4.00 ng/mLPerforming Lab:see noteML - [facility] LBT4 Reviewed date:03/28/2025 11:39:16 AM Interpretation: Performing Lab: Notes/Report: [facility] ,T4 Thyroxine5.604.50-12.10 ug/dLPerforming Lab:see noteML - [facility] LBTSH Reviewed date:03/28/2025 11:39:16 AM Interpretation: Performing Lab: Notes/Report: [facility] ,Thyroid Stimulating Hormone2.8050.358-3.740 uIU/mLPerforming Lab:see noteML - [facility] LBUA RANDOM W or MICROSCOPIC Reviewed date:03/28/2025 11:39:16 AM Interpretation: Performing Lab: Notes/Report: [facility] ,Color UrineYELLOWYELLOWClarity UrineCLEARCLEARSpecific [place] Urine1.020 1.005-1.025pH Urine6.05.0-9.0Protein Dwtvl24BSC/TRACE mg/dLGlucose Urine UA250 NEGATIVE mg/dLBilirubin UrineNEGATIVENEGATIVEKetones UrineTRACENEGATIVE mg/dL Blood UrineSMALLNEGATIVENitrite UrineNEGATIVENEGATIVEUrobilinogen Urine0.20.2- 1.0 EU/dLLeukocyte Esterase UrineNEGATIVENEGATIVEWBC Urine0-2NONE SEEN #/HPFRBC Urine2-50-2 #/HPFBacteria UrineTRACENONE SEEN #/HPFMucus UrineTRACENONE SEEN Squamous Epithelial Cell UrineRARENONE/RARE #/LPFCrystals Seen?None SeenNone Seen #/HPFCast Seen?NONE SEENNONE SEEN #/LPFUrine Culture IndicatedNOPerforming Lab:see noteML - [facility] LBVitamin B12 Reviewed date:03/28/2025 11:39:16 AM Interpretation: Performing Lab: Notes/Report: [facility] ,Vitamin B18645998-2961 pg/mL Performed at: [facility] Lab[address] [id number] Hearing And Speech Assistant: Genaro Becerril PhD, Phone: [phone] Performing Lab:see note - [facility] LBUrine Culture - [facility] Reviewed date:03/28/2025 11:39:16 AM Interpretation: Performing Lab: Notes/Report: [facility] ,Urine Culture - [facility]MCSee Below For Report Urine Culture - [facility] 20,000 colonies/ml mixed Urine Culture - FRMCbacterial skin contaminants Urine Culture - [facility] 20,000 colonies/ml mixed Urine Culture - [facility]2 Days Urine Culture - [facility] 20,000 colonies/ml mixed Urine Culture - [facility] Urine Culture - [facility] 20,000 colonies/ml mixed Urine Culture - FRMCTesting performed at [facility] Urine Culture - [facility] 20,000 colonies/ml mixed Urine Culture - [id number] [place] [address] Urine Culture - [facility] 20,000 colonies/ml mixed Performing Lab:see noteML - [facility] LBXR chest 2V Reviewed date:06/07/2025 08:39:41 AM Interpretation: Performing Lab: Notes/Report: Source Facility: [facility] [place] [address] [place] [address] XRay Report Signed Patient: EVELIN PATTERSON MR#: [id number] : 1955 Acct:[id number] Age/Sex: 69 / M ADM Date: 06/06/25 Loc: LAB Attending Dr: ARLINE LAZAR Ordering Physician: ARLINE LAZAR Date of Service: 06/06/25 Procedure(s): XR chest 2V Accession Number(s): [id number] cc: ARLINE LAZAR The [place] [address] Patient Name: EVELIN PATTERSON MRN: [id number] date: 1955 Sex: M Assigned Patient Location: LAB Current Patient Location: LAB Accession/Order Number: [id number] Exam Date: 06/06/2025 15:12 Report Date: 06/06/2025 [...] Arguello M.D. 06/06/2025 6:01 PM Dictation Location: [place] [address] Electronically authenticated by: [id number] Y Date: 06/06/2025 18:01 Dictated By: Dimitry Arguello M.D. Signed By: 06/06/251803 DD/ 00 TD/TT: Phonograph Mechanic:BNP Reviewed date:06/10/2025 09:19:15 AM Interpretation: Performing Lab: Notes/Report: [facility] ,NT Pro B Type Natriuretic Epor4898.0<=900.0 pg/mL RESULTS CALLED TO XAVIER Headley RN @BY Donald Avalos MLT at 1915 Performing Lab:see noteML - [facility] LBCBC AUTO DIFF Reviewed date:06/10/2025 09:19:15 AM Interpretation: Performing Lab: Notes/Report: [facility] ,White Blood Count6.84.0-11.0 10 3/uLRed Blood Count3.784.70-6.10 10 6/uL Vdkkcbmqwk40.214.0-18.0 g/wKDzdypfcdxt95.042.0-54.0 %Mean Corpuscular Zjneiz91.9 80.0-94.0 fLMean Corpuscular Gltbrancgv12.025.9-34.0 pgMean Corpuscular HGB Conc 30.029.9-35.2 g/dLRed Cell Distribution Width16.611.0-15.0 %Platelet Kyvjb318 150-450 10 3/uLMean Platelet Szpprp53.09.5-13.5 fLNeutrophils Percent Auto66.9 43.0-75.0 %Lymphocytes Percent Auto17.120.5-60.0 %Monocytes Percent Auto9.31.7- 12.0 %Eosinophils Percent Auto5.40.9-7.0 %Basophils Percent Auto1.20.2-2.0 % Immature Granulocytes Pct Auto0.10.0-0.5 %Neutrophils Absolute Auto4.51.4-6.5 10 3/uLLymphocytes Absolute Auto1.21.2-3.8 10 3/uLMonocytes Absolute Auto0.60.3- 0.8 10 3/uLEosinophils Absolute Auto0.40.0-0.7 10 3/uLBasophils Absolute Auto0.1 0.0-0.1 10 3/uLImmature Granulocytes Abs Auto0.010.00-0.03 10 3/uLPerforming Lab:see noteML - [facility] LBMAGNESIUM Reviewed date:06/10/2025 09:19:15 AM Interpretation: Performing Lab: Notes/Report: [facility] ,Magnesium1.51.8-2.4 mg/dLPerforming Lab:see noteML - [facility] LB PROF 14(COMP METB) Reviewed date:06/10/2025 09:19:15 AM Interpretation: Performing Lab: Notes/Report: [facility] ,Boyjbr717365-460 mmol/LPotassium4.53.5-5.1 mmol/ZXybnhtik54696-080 mmol/LCarbon Iosblde27.021.0-32.0 mmol/LAnion Gap13.5Acjrxma25229-908 mg/dLBlood Urea Vcsfdhrm70.07.0-18.0 mg/dLCreatinine1.740.70-1.30 mg/dLEstimated GFR ( Drzjksm99>=60 mL/min/1.73m 2Estimated GFR (Non- Ame39>=60 mL/min/1.73m 2 BUN Creatinine Ratio10.6Gtecooc7.68.5-10.1 mg/dLBilirubin Total0.80.2-1.0 mg/dL Aspartate Amino Unsaputdhco0102-48 U/LAlanine Prfzhphreboyzjir4589-23 U/L Alkaline Jbaazxhepbr35835-648 U/LTotal Protein7.46.4-8.2 g/dLAlbumin Level2.6 3.4-5.0 g/dLGlobulin4.8Albumin Globulin Ratio0.5Performing Lab:see noteML - [facility] LBTroponin I High Sensitivity Reviewed date:06/10/2025 09:19:15 AM Interpretation: Performing Lab: Notes/Report: [facility] ,Troponin I High Sensitivity9.44.0-76.1 pg/mL CUT-OFF POINTS HAVE BEEN ESTABLISHED BASED ON THE FOURTH UNIVERSAL DEFINITION OF MYOCARDIAL INFARCTION. THE UPPER REFERENCE LIMIT (URL) OF TROPONIN, DEFINED THE 99TH PERCENTILE OF cTnI DISTRIBUTION IN A REFERENCE POPULATION, HAS BEEN CONFIRMED THE DECISION THRESHOLD FOR MS DIAGNOSIS. 99TH PERCENTILE = 76.2 PG/ML NOTE: HIGH-SENSITIVITY TROPONIN ASSAY IS NOT INTENDED TO BE USED IN ISOLATION BUT SHOULD BE INTERPRETED IN CONJUNCTION WITH OTHER DIAGNOSTIC AND CLINICAL INFORMATION. Performing Lab:see noteML - [facility] LBXR chest 1V Reviewed date:06/10/2025 09:19:15 AM Interpretation: Performing Lab: Notes/Report: Source Facility: [facility] [place] [address] [place] [address] XRay Report Signed Patient: EVELIN PATTERSON MR#: [id number] : 1955 Acct:[id number] Age/Sex: 69 / M ADM Date: 06/09/25 Loc: ER Attending Dr: Ordering Physician: Daquan Ackerman D.O. Date of Service: 06/09/25 Procedure(s): XR chest 1V Accession Number(s): [id number] cc: ARLINE LAZAR ; Daquan Ackerman D.O. The [address] [address] Patient Name: EVELIN PATTERSON MRN: [id number] date: 1955 Sex: M Assigned Patient Location: ED.MAIN Current Patient Location: ED.MAIN Accession/Order Number: [id number] Exam Date: 06/09/2025 18:20 Report Date: 06/09/2025 19:27 At the request of: DAQUAN ACKERMAN Procedure: XR chest 1V PA CHEST: CLINICAL HISTORY: syncopal episode COMPARISON: 06/06/2025 Hypoventilatory changes. Cardiomegaly. Suspect mild central hilar congestion. Lungs are clear. No effusion or pneumothorax. XR/XR chest 1V IMPRESSION: Hypoventilatory changes. Question minimal Central hilar congestion Impression dictated by: Dimitry Arguello M.D. 06/09/2025 7:27 PM Dictation Location: [place] [address] Electronically authenticated by: [id number] Y Date: 06/09/2025 19:27 Dictated By: Dimitry Arguello M.D. Signed By: 06/09/251929 DD/ 26 TD/TT: Phonograph Mechanic:Troponin I High Sensitivity Reviewed date:06/10/2025 09:19:15 AM Interpretation: Performing Lab: Notes/Report: [facility] ,Troponin I High Sensitivity8.14.0-76.1 pg/mL CUT-OFF POINTS HAVE BEEN ESTABLISHED BASED ON THE FOURTH UNIVERSAL DEFINITION OF MYOCARDIAL INFARCTION. THE UPPER REFERENCE LIMIT (URL) OF TROPONIN, DEFINED THE 99TH PERCENTILE OF cTnI DISTRIBUTION IN A REFERENCE POPULATION, HAS BEEN CONFIRMED THE DECISION THRESHOLD FOR MS DIAGNOSIS. 99TH PERCENTILE = 76.2 PG/ML NOTE: HIGH-SENSITIVITY TROPONIN ASSAY IS NOT INTENDED TO BE USED IN ISOLATION BUT SHOULD BE INTERPRETED IN CONJUNCTION WITH OTHER DIAGNOSTIC AND CLINICAL INFORMATION. Performing Lab:see noteML - [facility] LBECG 12 lead Reviewed date:06/10/2025 09:19:15 AM Interpretation: Performing Lab: Notes/Report: Source Facility: [facility] [place] [address] [place] [address] Electrocardiograph Report Signed Patient: EVELIN PATTERSON MR#: [id number] : 1955 Acct:[id number] Age/Sex: 69 / M ADM Date: Loc: ER Attending Dr: Ordering Physician: Daquan Ackerman D.O. 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 Measurements Intervals Shepherd Rate: 72 P: 46 NM: 184 QRS: 37 QRSD: 80 T: 48 QT: 440 QTc: 464 Interpretive Statements 1100 Sinus rhythm 8304 Long QTc interval 9150 abnormal ECG Compared to ECG 12/23/2024 09:41:37 Atrial fibrillation no longer present Electronically Signed On 06-09-2025 17:52:11 EDT by SHANEL DONOHUE M.D. Dictated By: SHANEL DONOHUE Signed By: 06/09/25 175 DD/ 1740 TD/TT: Phonograph Mechanic:Acute Hepatitis Reviewed date:06/07/2025 08:39:41 AM Interpretation: Performing [...] to indicate HCV infection. Performed at: - [facility] [address] [id number] Hearing And Speech Assistant: Genaro Becerril PhD, Phone: [phone] Performing Lab:see note - [facility] LBINSULIN Reviewed date:03/28/2025 11:39:16 AM Interpretation: Performing Lab: Notes/Report: [facility] ,Itavhuo81.12.6-24.9 uIU/mL Performed at: [address] [id number] Hearing And Speech Assistant: Genaro Becerril PhD, Phone: [phone] Performing Lab:see note - [facility] LBGLYCOHEMOGLOBIN A1C Reviewed date:03/28/2025 11:39:16 AM Interpretation: Performing Lab: Notes/Report: [facility] ,Glycohemoglobin A1C8.94.5-6.2 % ADA RECOMMENDED LIMIT 4.0 - 6.0 ADA THERAPEUTIC TARGET < 7.0 ACTION SUGGESTED > 7.0 Estimated Average Xmogsas848Vmhbpzcsxv Lab:see [facility] - [facility] LB FREE T3 Reviewed date:03/28/2025 11:39:16 AM Interpretation: Performing Lab: Notes/Report: [facility] ,Free T31.142.18-3.98 pg/mLPerforming Lab:see [facility] LB XR lumbar spine bending only Reviewed date:10/18/2024 10:47:16 AM Interpretation: Performing Lab: Notes/Report: Source Facility: [place] [address] XRay Report Signed Patient: EVELIN PATTERSON MR#: [id number] : 1955 Acct:[id number] Age/Sex: 68 / M ADM Date: 10/15/24 Loc: EC Attending Dr: Conrad Lema M.D. Ordering Physician: Conrad Lema M.D. Date of Service: 10/15/24 Procedure(s): XR lumbar spine bending only Accession Number(s): [id number] cc: ARLINE LAZAR ; Conrad Lema M.D. [place] [address] Patient Name: EVELIN PATTERSON MRN: [id number] date: 1955 Sex: M Assigned Patient Location: Current Patient Location: Accession/Order Number: [id number] Exam Date: 10/15/2024 21:53 Report Date: 10/15/2024 [...] Michael Tinajero M.D.10/15/2024 10:06 PM Dictation Location: [place] Electronically authenticated by: [id number] Y Date: 10/15/2024 22:06 Dictated By: Michael Tinajero D.O. Signed By: 10/15/242207 DD/ 05 TD/TT: Phonograph Mechanic:CT abdomen pelvis w con Reviewed date:10/11/2024 10:47:22 AM Interpretation: Performing Lab: Notes/Report: Source Facility: [place] [address] CT Scan Report Signed Patient: EVELIN PATTERSON MR#: [id number] : 1955 Acct:[id number] Age/Sex: 68 / M ADM Date: 10/09/24 Loc: ER Attending Dr: Ordering Physician: Daquan Ackerman D.O. Date of Service: 10/09/24 Procedure(s): CT abdomen pelvis w con Accession Number(s): [id number] cc: ARLINE LAZAR [place] [address] Patient Name: EVELIN PATTERSON MRN: [id number] date: 1955 Sex: M Assigned Patient Location: ER Current Patient Location: ER Accession/Order Number: [id number] Exam Date: 10/09/2024 11:19 Report Date: 10/09/2024 [...] Bon Doherty M.D.10/09/2024 11:27 AM Dictation Location: [place] [address] Electronically authenticated by: [id number] Y Date: 10/09/2024 11:27 Dictated By: Bon Doherty M.D. Signed By: 10/09/24 1130 DD/ 1127 TD/TT: Phonograph Mechanic:GENNY Reviewed date:10/11/2024 10:47:22 AM Interpretation: Performing Lab: Notes/Report: [facility] ,CEA3.50.0-4.7 ng/mL Nonsmokers <3.9 Smokers <5.6 [employer] [employer] Electrochemiluminescence Immunoassay (ECLIA) Values obtained with different assay methods or kits cannot be used interchangeably. Results cannot be interpreted as absolute evidence of the presence or absence of malignant disease. Performing Lab:see noteLC - [facility] LBURIC ACID SERUM Reviewed date:10/11/2024 10:47:22 AM Interpretation: Performing Lab: Notes/Report: [facility] ,Uric Acid7.03.5-7.2 mg/dLPerforming Lab:see noteML - [facility] LBUA RANDOM W or MICROSCOPIC Reviewed date:10/11/2024 10:47:22 AM Interpretation: Performing Lab: Notes/Report: [facility] ,Color UrineLT. YELLOWYELLOWClarity UrineCLEARCLEARSpecific [place] Urine1.025 1.005-1.025pH Urine6.05.0-9.0Protein Xggpg463VRQ/TRACE mg/dLGlucose Urine UA NEGATIVENEGATIVE mg/dLBilirubin UrineNEGATIVENEGATIVEKetones UrineNEGATIVE NEGATIVE mg/dLBlood UrineMODERATENEGATIVENitrite UrineNEGATIVENEGATIVE Urobilinogen Urine0.20.2-1.0 EU/dLLeukocyte Esterase UrineNEGATIVENEGATIVEWBC Urine0-2NONE SEEN #/HPFRBC Urine2-50-2 #/HPFBacteria UrineTRACENONE SEEN #/HPF Mucus UrineNONE SEENNONE SEENSquamous Epithelial Cell UrineRARENONE/RARE #/LPF Crystals Seen?None SeenNone Seen #/HPFCast Seen?SEENNONE SEEN #/LPFHyaline Casts UrineRAREUrine Culture IndicatedALREADY ORDEREDPerforming Lab:see noteML - [facility] LBTSH Reviewed date:10/11/2024 10:47:22 AM Interpretation: Performing Lab: Notes/Report: [facility] ,Thyroid Stimulating Hormone0.1360.358-3.740 uIU/mLPerforming Lab:see noteML - [facility] LBT4 Reviewed date:10/11/2024 10:47:22 AM Interpretation: Performing Lab: Notes/Report: [facility] ,T4 Thyroxine7.004.50-12.10 ug/dLPerforming Lab:see noteML - [facility] LBPSA SCREENING Reviewed date:10/11/2024 10:47:22 AM Interpretation: Performing Lab: Notes/Report: [facility] ,Prostate Specific Antigen Scrn1.38<=4.00 ng/mLPerforming Lab:see note - [facility] LBPROF 14(COMP METB) Reviewed date:10/11/2024 10:47:22 AM Interpretation: Performing Lab: Notes/Report: [facility] ,Lvfdup798077-535 mmol/LPotassium4.03.5-5.1 mmol/HVkbifmvd41806-888 mmol/LCarbon Kaijlrh55.721.0-32.0 mmol/LAnion Gap16.9Pgpggpk05400-927 mg/dLBlood Urea Yukhgrds61.07.0-18.0 mg/dLCreatinine1.510.70-1.30 mg/dLEstimated GFR ( Gxuqouz60>=60 mL/min/1.73m 2Estimated GFR (Non- Ame46>=60 mL/min/1.73m 2 BUN Creatinine Ratio14.8Hslxnfx9.18.5-10.1 mg/dLBilirubin Total0.90.2-1.0 mg/dL Aspartate Amino Qjpbjqkawgb2703-60 U/LAlanine Czgyqiexzhkzptfh0945-99 U/L Alkaline Erlywilawov45962-363 U/LTotal Protein8.26.4-8.2 g/dLAlbumin Level3.0 3.4-5.0 g/dLGlobulin5.2Albumin Globulin Ratio0.6Performing Lab:see noteML - [facility] LBLIPID PROFILE Reviewed date:10/11/2024 10:47:22 AM Interpretation: Performing Lab: Notes/Report: [facility] ,Fhkocwwazrqwe403<=150 mg/yVNgjvjwfjtdx396<=200 mg/dLHDL Jndxhxectav6723-65 mg/dL > or =60 mg/dl - LOW CARDIOVASCULAR RISK <40 mg/dl - HIGH CARDIOVASCULAR RISK LDL Cholesterol Vnxmkzajbz47.2 <100 mg/dl OPTIMAL 100-129 mg/dl NEAR OR ABOVE OPTIMAL 130-159 mg/dl BORDERLINE HIGH 160-189 mg/dl HIGH >190 mg/dl VERY HIGH VLDL MWGCJAAFLRI02.8Chol HDL Ratio3.3 3.3 - 4.4 LOW RISK 4.4 - 7.1 AVERAGE RISK 7.1 - 11.0 MODERATE RISK >11.0 HIGH RISK Performing Lab:see note - [facility] LBGLYCOHEMOGLOBIN A1C Reviewed date:10/11/2024 10:47:22 AM Interpretation: Performing Lab: Notes/Report: [facility] ,Glycohemoglobin A1C6.94.5-6.2 % ADA RECOMMENDED LIMIT 4.0 - 6.0 ADA THERAPEUTIC TARGET < 7.0 ACTION SUGGESTED > 7.0 Estimated Average Slhymkg920Wglwmvspiw Lab:see note - [facility] LB FREE T3 Reviewed date:10/11/2024 10:47:22 AM Interpretation: Performing Lab: Notes/Report: [facility] ,Free T32.292.18-3.98 pg/mLPerforming Lab:see note - [facility] LB CBC AUTO DIFF Reviewed date:10/11/2024 10:47:22 AM Interpretation: Performing Lab: Notes/Report: [facility] ,White Blood Count7.94.0-11.0 10 3/uLRed Blood Count4.204.70-6.10 10 6/uL Ociusuktlw79.314.0-18.0 g/dKPzgbtaiyic93.942.0-54.0 %Mean Corpuscular Zkeaeg35.2 80.0-94.0 fLMean Corpuscular Aljgwsbdkb36.325.9-34.0 pgMean Corpuscular HGB Conc 32.529.9-35.2 g/dLRed Cell Distribution Width15.211.0-15.0 %Platelet Ymfph481 150-450 10 3/uLMean Platelet Uaqixy47.09.5-13.5 fLNeutrophils Percent Auto57.3 43.0-75.0 %Lymphocytes Percent Auto23.420.5-60.0 %Monocytes Percent Auto9.41.7- 12.0 %Eosinophils Percent Auto7.90.9-7.0 %Basophils Percent Auto1.70.2-2.0 % Immature Granulocytes Pct Auto0.30.0-0.5 %Neutrophils Absolute Auto4.51.4-6.5 10 3/uLLymphocytes Absolute Auto1.81.2-3.8 10 3/uLMonocytes Absolute Auto0.70.3- 0.8 10 3/uLEosinophils Absolute Auto0.60.0-0.7 10 3/uLBasophils Absolute Auto0.1 0.0-0.1 10 3/uLImmature Granulocytes Abs Auto0.020.00-0.03 10 3/uLPerforming Lab:see note - [facility] LBUrine Culture, Routine Reviewed date:10/11/2024 10:47:21 AM Interpretation: Performing Lab: Notes/Report: [facility] ,Urine Culture, RoutineSee Below For Report Urine Culture, Routine Urine Culture, RoutineMixed urogenital shaggy Urine Culture, Routine Urine Culture, Rbamcsd10,000-25,000 colony forming units per mL Urine Culture, Routine Urine Culture, RoutinePerformed at: [facility] Urine Culture, Routine Urine Culture, [address] [place] [id number] Urine Culture, Routine Urine Culture, RoutineLab Director: Genaro Becerril PhD, Phone: [phone] Urine Culture, Routine Performing Lab:see note LC - [facility] LB SEE REPORT - Galley Boy Id information not found for 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 Results cannot be interpreted as absolute evidence of the presence or absence of malignant disease. Performed at: [address] [id number] Hearing And Speech Assistant: Genaro Becerril PhD, Phone: [phone] Performing Lab:see note - [facility] LBINSULIN Reviewed date:10/11/2024 10:47:22 AM Interpretation: Performing Lab: Notes/Report: [facility] ,Kkgkstp94.82.6-24.9 uIU/mL Performed at: [address] [id number] Hearing And Speech Assistant: Genaro Becerril PhD, Phone: [phone] Performing Lab:see note - [facility] LB Reason For Referral Reason NCS bilateral arms Diagnosis 1 Paresthesia (R20.2) Referral Organization [facility] Referring Provider First Name Arline Referring Provider Last Name Nasim Referring Provider [facility] icikarina Referred Provider Noa Menendez Referred Provider Specialty Neurology Referral Priority Routine Diagnosis 1 Sciatica (M54.30) Referral Organization [facility] Referring Provider First Name Arline Referring Provider Last Name Nasim Referring Provider [facility] icikarina Referred Provider [facility], Physical Therap y Referred Provider Specialty Physical The rapist Referral Priority Routine Diagnosis 1 Right knee pain (M25 .561) Referral Organization [facility] Referring Provider First Name Arline Referring Provider Last Name Nasim Referring Provider [facility] icikarina Referred Provider Carlos Saul Referred Provider Specialty Orthopedic S urgery Referral Priority Routine Reason DDD and sciatica Diagnosis 1 Sciatica (M54.30) Referral Organization [facility] Referring Provider First Name Arline Referring Provider Last Name Nasim Referring Provider [facility] icikarina Referred Provider Farhad Car Referred Provider Specialty Neurosurgery Referral Priority Routine Reason colonoscopy Diagnosis 1 Anemia (D64.9) Referral Organization [facility] Referring Provider First Name Arline Referring Provider Last Name Nasim Referring Provider [facility] icine Referred Provider Gita Jeffery Referred Provider Specialty Gastroentero logy Referral Priority Routine Reason gen weakness, chroni c back pain Diagnosis 1 Generalized weakness (R53.1) Diagnosis 2 Back pain (M54.9) Referral Organization [facility] Referring Provider First Name Arline Referring Provider Last Name Nasim [facility], [facility] Referred Provider Specialty Physical The rapist Referral Priority Routine Medications Medication SIG (Take, Route, Frequency, Duration) Notes Start Date End Date Status Gabapentin 100 MG 1 capsule Orally Twice Daily; Duration: 30 days ActiveEliquis 5 MGTAKE 1/2 TABLET BY MOUTH TWICE DAILY; Duration: 60Active Esomeprazole Magnesium 40 MGTAKE 1 CAPSULE BY MOUTH TWICE DAILY FOR 30 DAYS THEN 1 CAPSULE ONCE DAILY CALL FOR NEXT PRESCRIPTION; Duration: 30ActiveCVS Aspirin Adult Low Dose 81 MGCHEW 1 TABLET (81 MG) IN THE MORNING Oral; Duration: 30 Days ActiveFluconazole 150 MG1 tablet Orally once a week for 4 weeks; Duration: 28 days5ActiveFluticasone Propionate 50 MCG/ACT1 spray in each nostril Nasally Once a day; Duration: 30 daysActiveFerrous Sulfate 325 (65 Fe) MG1 tablet Orally Three times a Week; Duration: 30 days5ActiveFingerstix Lancets -as directed; Duration: 30 days12/15/2023ctiveGlucose Blood -as directed In Vitro daily; Duration: 30 days12/15/2023ctivetraZODone HCl 50 MG TAKE 1 TABLET BY MOUTH EVERY DAY AT BEDTIME NEEDED; Duration: 90Active Diclofenac Sodium 75 MGTAKE 1 TABLET BY MOUTH TWICE A DAY NEEDED; Duration: 30ActiveAssure Pro Blood Glucose Meter -as directed; Duration: 360 days 12/15/2023ctiveAtorvastatin Calcium 40 MGTAKE 1 TABLET BY MOUTH IN THE MORNING. STOP ZOCOR Oral; Duration: 90 DaysActiveAlbuterol Sulfate HFA 108 (90 Base) MCG/ACT1 puff as needed Inhalation every 4 hrs5ActiveBenadryl Allergy 25 MG 1 -2 Orally qid; Duration: 30 days itching 08/06/2024ctiveAtorvastatin Calcium 40 MG1 tablet Orally Once a day; Duration: 30 days5ActiveAzelastine HCl 0.05 %1 drop into affected eye Ophthalmic Twice a day5ActiveClaritin 10 MG1 tablet Orally Once a day; Duration: 30 days03/22/2025tiveIsosorbide Mononitrate ER 30 MGTAKE 1 TABLET EVERY DAY; Duration: 90ActiveLantus SoloStar 100 UNIT/MLINJECT 45 UNITS SUBCUTANEOUSLY EVERY DAYActiveBlood Glucose Monitor System w/Devicecheck blood sugar fasting every jjuemfv30/18/2025ActiveCarvedilol 3.125 MGOral; Duration: 90 DaysActive Lisinopril 20 MGTAKE 1 TABLET BY MOUTH EVERY DAY; Duration: 90ActiveMetoprolol Succinate ER 25 MGTAKE 1 TABLET BY MOUTH ONCE DAILY DIRECTED. STOP CARVEDILOL Oral; Duration: 90 DaysActiveLevothyroxine Sodium 200 MCGTAKE 1 TABLET EVERY DAY; Duration: 90ActiveLiothyronine Sodium 5 MCG1 tablet on an empty stomach Orally Once a day; Duration: 30 daysActiveMer[facility] Bed with Halt Rails -Use As Directed; Duration: 360 days12/16/2023ctiveSertraline HCl 100 MG1 tablet Orally Once a day; Duration: 90 daysActiveNystatin 353711 UNIT/GMAPPLY TO AFFECTED AREA TWICE A DAY External; Duration: 30 DaysActiveBD Pen Needle Mini U/F 31G X 5 MMUse 1 pen needle to inject insulin once daily DX E11.9; Duration: 90 daysActiverOPINIRole HCl 0.5 MGTAKE 1 TABLET EVERY DAY AT BEDTIME; Duration: 90Active Social History Tobacco Use: Social History Observation Description Date Details (start date - stop date) Never Smoker NA - NA Tobacco Control (Standard) Question Answer Notes Tobacco use: Nonsmoker AUDIT-C (Standard) Question Answer Notes Did you have a drink containing alcohol in the p ast year? No Fwyyem1EcflvpwdhtqgdiJqiccvrq Problems Problem Type SNOMED Code ICD Code Onset Dates Problem Status W/U Status Risk Notes Problem Chronic obstructive pulmonary disease (45257356) Chronic obstructive pulmonary disease, unspecified (J44.9) ActiveconfirmedProblemHypomagnesemia (496470849)Hypomagnesemia (E83.42)Active confirmedProblemFibromyalgia (532833884)Fibromyalgia (M79.7)Activeconfirmed ProblemHyperlipidemia (50830070)Hyperlipidemia (E78.5)ActiveconfirmedProblem Hypertension (28472297)Hypertension (I10)ActiveconfirmedProblemGastroesophageal reflux disease (980687594)GERD (gastroesophageal reflux disease) (K21.9)Active confirmedProblemAtrial fibrillation (disorder) (49047326)Afib (I48.91)Active confirmedProblemAnxiety (62360673)Anxiety (F41.9)ActiveconfirmedProblemAnemia (809459336)Anemia (D64.9)ActiveconfirmedProblemSleep apnea (17090618)Sleep apnea (G47.30)ActiveconfirmedProblemInsomnia (510059668)Insomnia (G47.00)Active confirmedProblemOsteoarthritis of knee (959654505)Knee osteoarthritis (M17.9) ActiveconfirmedProblemAcute bronchitis (34127545)Acute bronchitis (J20.9)Active confirmedProblemFatty liver (957254821)Fatty liver (K76.0)ActiveconfirmedProblem Paresthesia (08804633)Paresthesia (R20.2)ActiveconfirmedProblemSciatica (10049484)Sciatica (M54.30)ActiveconfirmedProblemSeasonal allergy (697744239) Seasonal allergies (J30.2)ActiveconfirmedProblemFibromyalgia (069375135) Fibromyalgia (M79.7)ActiveconfirmedProblemIron deficiency anemia (15531811) Anemia, iron deficiency (D50.9)ActiveconfirmedProblemSevere major depression, single episode, without psychotic features (32715017)Major depressive disorder, severe (F32.2)ActiveconfirmedProblemCirrhosis of liver (02953220)Cirrhosis of liver (K74.60)ActiveconfirmedProblemSeasonal allergy (560425195)Environmental and seasonal allergies (J30.89)ActiveconfirmedProblemAtrial fibrillation (66997888)New onset a-fib (I48.91)ActiveconfirmedProblemMalnutrition of moderate degree (Simon: 60% to less than 75% of standard weight) (91584029)Moderate malnutrition (E44.0)ActiveconfirmedProblemHypercholesterolemia (79262700) Hypercholesterolemia (E78.00)ActiveconfirmedProblemType II diabetes mellitus without complication (703412918)Diabetes (E11.9)ActiveconfirmedProblemDiabetes mellitus (15720874)Diabetes mellitus (E11.9)ActiveconfirmedProblemChronic kidney disease stage 3A (disorder) (310003955)Chronic kidney disease, stage 3a (N18.31)Activeconfirmed Vital Signs Heart Rate 63 /min 02/09/2025 Hnedbfrurlg16.4 degrees Aaduiyoiia64/28/6185Qopdeheu62 %02/09/2025lood pressure gtrztmlun92 mm Hg05/30/20251729Ucnrha40 in05/30/2025lood pressure mm Hg05/30/20253903Gmqbwg725 lbs1MI49.21 kg/m205/30/2025 Procedures Procedure Date Ordered Date Performed Result Body Sit e CARDIO EKG 12/20/2024 N/A Encounters Encounter Location Date Provider Diagnosis [address] [address] 10/08/2024 Arline Lazar Paresthesia R20.2 ; Fatigue R53.83 ; Depression F32.9 and GERD (gastroesophageal reflux disease) K21.[address] [address] 12/20/2024 Arline Lazar New onset a-fib I48.91 ; Diabetes E11.9 ; Cirrhosis of liver K74.60 and Major depressive disorder, severe F32.[address] [address] 02/09/2025 Arline Lazar Chronic obstructive pulmonary disease, unspecified J44.9 ; Chronic kidney disease, stage 3a N18.31 ; Seasonal allergies J30.2 ; Diabetes mellitus E11.9 and Yeast dermatitis B37.[address] [address] 03/22/2025 Arline Lazar Eustachian tube dysfunction, bilateral H69.83 ; Environmental and seasonal allergies J30.89 ; Sciatica M54.30 and Fatigue R53.[address] [address] 03/28/2025 Arline Lazar Diabetes mellitus E11.9 ; Anemia D64.9 and Hyperlipidemia E78.[address] [address] 05/30/2025 Arline Lazar Generalized weakness R53.1 ; Back pain M54.9 ; Chronic obstructive pulmonary disease, unspecified J44.9 and Major depressive disorder, severe F32.2 [facility] (PODIATRY) [address] [place] [address] [place] [address] 10/08/2024 Desean Mensah Diabetes E11.9 [facility] [address] [place] [place] [address] 09/30/2024 Arline Lazar [facility] [place] [place] [address] 10/06/2024Pamora [facility] [place] [place] [address]Okmora [facility] [address] [place] [address]/10/2024Arline Denton in urine R31.9[facility] [address] [place] [address]/[facility] [place] [place] [address]/04/2025[facility] [address] [place] [place] [address]/Arline [facility] [place] [place] [address]/ Arline Jackson R30.0[facility] [place] [place] [address]/Pamela CramerSciatica M54.30 and Low back pain at multiple sites M54.50[facility] [place] [place] [address]/Arline [facility] [address] [place] [address]/07/2025Arline [facility] [place] [place] [address]/ Arline CramerRight knee pain M25.561[facility] [facility] [place] [address]/Pamela [facility] [facility] [place] [address]/Pamela CramerRight knee pain M25.561[facility] [facility] [facility] [address] [place] [address]/Pamela [facility] [facility] [place] [address]/Pamela [facility] [facility] [place] [address]/11/2024Pamela [facility] [place] [address] 03/28/2025Pamela [facility] [facility] [place] [address]/Pamela CramerHypercholesterolemia E78.00[facility] [facility] [facility] [address] [place] [address]/09/2024 Arline [facility] [facility] [facility] [address] [place] [address]/11/2024Pamela CramerAnemia D64.9[facility] [facility] [place] [address]/12/2024Pamela [facility] [facility] [facility] [address] [place] [address]/03/2025Pamela [facility] [facility] [place] [address]/Pamela [facility] [place] [address]/Pamela CramerCirrhosis of liver K74.60 [facility] [place] [place] [address] 06/07/2025Pamela [facility] [place] [place] [address]/Pamela [facility] [address] [place] [place] [address]/Pamela CramerRib pain on left side R07.81 and Paresthesia R20.2[facility] [place] [place] [address]/Pamela CramerRib pain on left side R07.81 ; Hypercholesterolemia E78.00 and Diabetes mellitus E11.9 Assessments Encounter Date Diagnosis (ICD Code) Assessment Notes Treatment Notes Treatment Clinical Notes Section Notes 10/08/2024 Paresthesia (ICD-10 - R20.2) 10/08/2024Fatigue (ICD-10 - R53.83)10/08/2024Diabetes (ICD-10 - E11.9)12/20/2024 New onset a-fib (ICD-10 - I48.91) HR slightly irregular unable to obtain EKG in office fu cardiology 12/20/2024Diabetes (ICD-10 - E11.9) Patient educated on Diabetic diet... Reviewed Hypoglycemia / Hyperglycemia action plan: Instructed to call office if blood sugar above 350 or below 65 consecutively. Reviewed with patient the nursing home effects of Diabetes Mellitus on the body [...] dosing instructions. A1c 6.9 continue current medications 5Chronic obstructive pulmonary disease, unspecified (ICD-10 - J44.9) some SOB with exertion, trial of albuterol prn02/09/2025hronic kidney disease, stage 3a (ICD-10 - N18.31) continue monitor labs last GFR 57, had improved 5Blood in urine (ICD-10 - R31.9)11/24/2024Dysuria (ICD-10 - R30.0) 12/07/2024Sciatica (ICD-10 - M54.30)12/07/2024Low back pain at multiple sites (ICD-10 - M54.50)12/21/2024Right knee pain (ICD-10 - M25.561)12/23/2024Right knee pain (ICD-10 - M25.561)03/28/2025Hypercholesterolemia (ICD-10 - E78.00) 04/14/2025nemia (ICD-10 - D64.9)06/02/2025irrhosis of liver (ICD-10 - K74.60) 06/24/2025Rib pain on left side (ICD-10 - R07.81)03/22/2025Eustachian tube dysfunction, bilateral (ICD-10 - H69.83) continue [...] below 65 consecutively. Reviewed with patient the nursing home effects of Diabetes Mellitus on the body [...] or testing, please call for dosing instructions. 03/28/2025nemia (ICD-10 - D64.9)05/30/2025Generalized weakness (ICD-10 - R53.1) patient requesting PT05/30/2025ack pain (ICD-10 - M54.9)07/06/2025Rib pain on left side (ICD-10 - R07.81)07/06/2025Hypercholesterolemia (ICD-10 - E78.00) 05/30/2025hronic obstructive pulmonary disease, unspecified (ICD-10 - J44.9) 03/28/2025Hyperlipidemia (ICD-10 - E78.5)taking statin? check with pharmacy 03/22/2025Sciatica (ICD-10 - M54.30) requesting second opinion on DDD and sciatica told to go to pain managment and PT had MRI 06/24/2025Paresthesia (ICD-10 - R20.2)02/09/2025Seasonal allergies (ICD-10 - J30.2)12/20/2024irrhosis of liver (ICD-10 - K74.60) hx of current liver enzymes wnl work on diet 10/08/2024Depression (ICD-10 - F32.9)10/08/2024GERD (gastroesophageal reflux disease) (ICD-10 - K21.9)12/20/2024Major depressive disorder, severe (ICD-10 - F32.2) resolved, in remission only taking 100 mg zoloft, mood is good 02/09/2025Diabetes mellitus (ICD-10 - E11.9) monitor BS daily, report 1-2 weeks if hypoglycemia, notify office 03/22/2025Fatigue (ICD-10 - R53.83)sleep apnea, does not tolerate cpap05/30/2025 Major depressive disorder, severe (ICD-10 - F32.2) psych added abilify, continue consider counseling 07/06/2025Diabetes mellitus (ICD-10 - E11.9)02/09/2025east dermatitis (ICD-10 - B37.2) Plan Of Treatment [...] PANEL (CHOL/TRIG/HDL/LDL) 01/30/20 24 CBC WITH DIFF (EXP 06/2025) 01/30/2024 CBC WITH DIFF (06/2025) 10/08/2024 UA (URINALYSIS, MICRO ONLY) 10/11/2024 URIC ACID 01/30/2024 URIC ACID 10/08/2024 CBC 04/14/2025 Urine Culture 11/24/2024 Urine Culture 10/08/2024 Urine Culture 03/22/2025 EAR IRRIGATION - performed 07/07/2024 CARDIO EKG 12/20/2024 CMP - Comprehensive Metabolic Panel 06/11 CT Abdomen and Pelvis w/ Contrast * 03/11 CBC W/AUTO DIFF 04/14/2025 CBC W/AUTO DIFF 07/06/2025 PSA, TOTAL 01/30/2024 STOOL OCCULT BLOOD 01/30/2024 CA 19-9 10/08/2024 CEA 10/08/2024 CULTURE URINE 10/11/2024 GLYCOHEMOGLOBIN A1C 07/06/2025 HEPATITIS PANEL, ACUTE 06/02/2025 IRON 07/06/2025 LIPID PROFILE 06/21/2024 VITAMIN B12 03/22/2025 CT ABD and PELV W CON 03/23/2024 XR CHEST 2 V 05/30/2025 THYROID PANEL (T4/TSH/FREE T3) THYROID PANEL (T4/TSH/FREE T3) 5 THYROID PANEL (T4/TSH/FREE T3) 4 PSA, SCREENING 03/22/2025 PSA, SCREENING 10/08/2024 XR KNEE 3 VIEWS RIGHT 12/21/2024 Lipid Panel 07/06/2025 US abdomen limited 03/01/2024 XR ribs LT 2V 03/01/2024 US abdomen complete 03/09/2024 CMP (COMP MET WILSON) w/eGFR CKD-EPI 2024 CMP (COMP MET WILSON) w/eGFR CKD-EPI 2024 CBC WITH DIFF 03/22/2025 Insurance Providers Payer Name Payer Address Payer Phone Subscriber Number Group Number Insured Name Patient Relationship to Insured Coverage Start Date Coverage End Date [employer] D[employer]V PRIMARY MEDICARE [address] [place] [address] [id number] [facility] Evelin Patterson Self - patient is the insured 4 MEDICAID [place] [address] [facility] [address] [place], [place] [phone], ThomasSelf - patient is the insured Medications [...]
[2025-08-10 20:33] VITALS: BP 132/86; PULSE 80; TEMP 36.4; O2SAT 100
--- NOTE | 2025-08-10 20:34 | PC.NURSE ---
large round red area to upper right side of head with no drainage. warm to touch and redness moving towards right eye. pt reports this is painful.
[2025-08-10] MEDS: LIDOCAINE HCL 1% 100 MG/10 ML MDV INJ (21:23)
[2025-08-10] MEDS: CEFAZOLIN SODIUM/DEXTROSE,ISO 1 GM/50 ML PREMIX IV (22:23)
[2025-08-10] MEDS: ACETAMINOPHEN 325 MG TABLET 650 MG PO (22:51)
== END 2025-08-10 23:05 | disposition home or self-care (01) ==
PROVIDERS: Emergency Provider Emergency Medicine; PCP Nurse Practitioner Family
DX: L02.811 Cutaneous abscess of head [any part, except face] (principal)
CPT/HCPCS: 10060; 70450; 87070; 87075; 87077; 87186; 96365; 99284; J0690